=== PATIENT | female | born 1955 | race Caucasian/White ===

== ENCOUNTER → 2018-01-25 10:34 | Outpatient (CLI) | payer BC, MEDICARE, SELFPAY ==
[2018-01-25 11:23] LABS: Microscopic, Urine URINE MICROSCOPIC (MICROSCOPIC)
--- NOTE | 2018-01-25 11:36 | XR_ITS ---
XR chest 2V HISTORY: ITS.REASON: COUGH ORDERING PHYSICIAN: Shay Guerrero PATIENT AGE: 62 years COMPARISON: [id number] FINDINGS: The cardiomediastinal silhouette and pulmonary vascularity are within normal limits. The lungs are clear without infiltrates, suspicious nodules, or pleural effusions. No acute bony abnormalities. There is a medium-sized hiatal hernia IMPRESSION: Hiatal hernia otherwise negative chest
[2018-01-25 11:54] LABS: Activated Partial Thrombo Time 29.4 seconds (23.6-34.0); INR 1.02 (0.9-1.1); Prothrombin Time 10.5 seconds (9.4-11.8)
[2018-01-25 12:05] LABS: Basophils % 0.9 % (0.1-2.0); Eosinophils # 0.4 K/mm3 (0.0-0.4); Eosinophils % 7.6 % (0.1-12.0); Hemoglobin 11.7 g/dL (12.2-16.2); Lymphocytes # 1.6 K/mm3 (0.7-4.5); Mean Corpuscular HGB Conc 31.7 g/dL (31.8-35.4); Mean Corpuscular Hemoglobin 29.6 pg (27.0-31.2); Mean Corpuscular Volume 93.3 fl (81-99); Mean Platelet Volume 8.2 fl (7.4-10.4); Monocytes # 0.4 K/mm3 (0.1-1.0); Monocytes % 7.3 % (1.7-9.3); Neutrophils # 2.8 K/mm3 (1.8-7.8); Neutrophils % 53.2 % (37.0-80.0); Platelet Count 182 K/mm3 (142-424); Red Blood Count 3.97 M/mm3 (4.20-5.40); Red Cell Distribution Width 13.2 % (11.5-17.5); White Blood Count 5.2 K/mm3 (4.8-10.8)
[2018-01-25 12:57] LABS: Alanine Aminotransferase 16 U/L (12-78); Alkaline Phosphatase 111 U/L (46-116); Anion Gap 12.3 mEq/L (5-15); Aspartate Amino Transferase 20 U/L (15-37); Bilirubin,Total 0.6 mg/dL (0.2-1.0); Blood Urea Nitrogen 12 mg/dL (7-18); Calcium 8.7 mg/dL (8.5-10.1); Carbon Dioxide 28 mmol/L (21.0-32.0); Chloride 109 mmol/L (98-107); Estimated Glomerular Filt Rate 63 ml/min (>60); GFR (African American) 77 ML/MIN (>60); Glucose 91 mg/dL (74-106); Potassium 4.3 mmoL/L (3.5-5.1); Sodium 145 mmol/L (136-145)
[2018-01-25 13:11] LABS: Appearance,Urine SL CLOUDY (Clear); Bilirubin,Urine Negative (Negative); Blood, Urine Negative (Negative); Color,Urine YELLOW (Yellow); Glucose,Urine (UA) Negative (Negative); Ketones,Urine Negative (Negative); Leukocyte Esterase,Urine 1+ (Negative); Nitrate,Urine Negative (Negative); Protein,Urine Negative (Negative); Specific Gravity, Urine 1.015 (1.005-1.030); Urobilinogen,Urine 0.2 EU/dl (0.2)
[2018-01-25 13:47] LABS: Bacteria,Urine 4+ /lpf; Squamous Epithelial Cell,Urine Occasional #/hpf (0-5)
== END ==
PROVIDERS: PCP Family Medicine; Visit Provider Orthopaedic Surgery
DX: Z01.818 Encounter for other preprocedural examination (principal)
CPT/HCPCS: 36415; 71046; 80053; 81001; 85025; 85610; 85730; 87086; 87088; 87186; 93005

== ENCOUNTER 2018-08-10 11:44 | Inpatient (IN) | payer BC, MEDICARE, SELFPAY ==
[2018-08-10 11:51] VITALS: BMI 43.6
[2018-08-10 12:29] VITALS: BP 105/63; PULSE 78; RESP 22; TEMP 36.2; O2SAT 96
--- NOTE | 2018-08-10 12:59 | HMH.HP ---
*Admission Date: 08/10/18 *Chief complaint: wound infection *History of present illness: Ms. Blair is a 62-year-old female with a history of hypertension, migraine headaches, seasonal allergies, GERD, arthritis, cervical cancer, chronic back pain with degenerative disc disease who had a knee replacement in February 2018, with a patella repair in March 2018 and a reconstructed patella 6 weeks ago. She developed a wound infection and is been seeing her orthopedic surgeon weekly with home health doing daily packing of the wound. Her surgeon started her on Augmentin for the infection after which she developed a rash. She stopped taking the medication and started on Benadryl. The rash actually got worse and she developed blisters and sores as well as the redness. She denies having any fever. She did see her surgeon yesterday on 08/09/2018 and she was to follow-up with a spot welder line for this. noticed a change in mental status yesterday and due to the worsening rash he brought her to the office of [facility] today for evaluation. She has not been eating or drinking well for 2 days. She has been nauseated and had the dry heaves. Her bowels have not moved in a couple of days. With evaluation in the office of [facility] she was noted to be a little lethargic with a loss of memory. Petechiae and confluent rash was noted throughout her body. Dr. Alas also saw the patient while in the office. White blood cell count was 13,000. Thus she was admitted to [facility] for further evaluation and treatment with IV fluids, and will be started on clindamycin and Levaquin. Wound culture will be completed as well and she will have daily wound care. Please see orders [facility] History Medical History: Reports:: Cancer (CERVICAL), Hypertension Denies:: Diabetes Mellitus Type 1, Diabetes Mellitus Type 2, MRSA *Have you ever received a pneumonia vaccine?: No *Have you received a flu vaccine this season?: Yes Other Medical History: Reports: Arthritis Laterality Cases: Bilateral: Total Knee Replacement, Other Other Surgeries: Yes: Hysterectomy-Total, Other (Total L Knee February 2018, L knee tendon repair March 2018,) Amputation: No Fractures: No Comment: Bilateral foot surgery for plantar fasciitis 1998 and 1999; bilateral laminectomies of L3/07/08/2008; patella tendon repair right knee after a fall by Dr. Burgos 08/13/2016 ;patella tendon repair of the left knee March 2018; reconstruction on the left patella tendon June 2018 - *Social History Educational Level: Attended College Alcohol Intake: never *Occupational Status:: retired Household Members: spouse *Travel in the last 8 weeks: None - Psychiatric History Expresses thoughts of harming self/others: None Suicide Plan Description: No Plan Family Hx:: Cancer, Diabetes, Heart Attack Comment: Father had heart disease and an IN at the age of 50 ;mother had breast cancer; paternal grandmother was a diabetic. Review of Systems - Constitutional Reports lack of energy, Reports weakness, Denies fever(s) - ENT Denies ear pain, Denies headache(s), Denies sore throat - *Cardiovascular Reports shortness of breath, Reports leg swelling, Denies chest pain - *Respiratory Reports shortness of breath, Denies chest congestion, Denies cough - *Gastrointestinal Reports nausea, Reports vomiting, Denies abdominal pain, Denies change in bowel habits - *Genitourinary Denies painful urination Comments: Was treated for urinary tract infection last week with Bactrim x2 days per Dr. Guerrero - *Musculoskeletal Comments: She has been nonweightbearing. She has a partial leg cast on the left lower extremity. She is not to bend the left knee. - *Neurologic Reports confusion, Reports tremor(s), Denies abnormal speech, Denies frequent falls, Denies headache(s) Comments: Lethargic - Psychiatric Reports confusion Meds Home Medications Medication Instruc
--- NOTE | 2018-08-10 13:03 | P.HP_ITS ---
*Admission Date: 08/10/18 *Chief complaint: wound infection *History of present illness: Ms. Blair is a 62-year-old female with a history of hypertension, migraine headaches, seasonal allergies, GERD, arthritis, cervical cancer, chronic back pain with degenerative disc disease who had a knee replacement in February 2018, with a patella repair in March 2018 and a reconstructed patella 6 weeks ago. She developed a wound infection and is been seeing her orthopedic surgeon weekly with home health doing daily packing of the wound. Her surgeon started her on Augmentin for the infection after which she developed a rash. She stopped taking the medication and started on Benadryl. The rash actually got worse and she developed blisters and sores as well as the redness. She denies having any fever. She did see her surgeon yesterday on 08/09/2018 and she was to follow-up with a dye range operator cloth for this. noticed a change in mental status yesterday and due to the worsening rash he brought her to the office of [facility] today for evaluation. She has not been eating or drinking well for 2 days. She has been nauseated and had the dry heaves. Her bowels have not moved in a couple of days. With evaluation in the office of [facility] she was noted to be a little lethargic with a loss of memory. Petechiae and confluent rash was noted throughout her body. Dr. Alas also saw the patient while in the office. White blood cell count was 13,000. Thus she was admitted to [facility] for further evaluation and treatment with IV fluids, and will be started on clindamycin and Levaquin. Wound culture will be completed as well and she will have daily wound care. Please see orders [facility] History Medical History: Reports:: Cancer (CERVICAL), Hypertension Denies:: Diabetes Mellitus Type 1, Diabetes Mellitus Type 2, MRSA *Have you ever received a pneumonia vaccine?: No *Have you received a flu vaccine this season?: Yes Other Medical History: Reports: Arthritis Laterality Cases: Bilateral: Total Knee Replacement, Other Other Surgeries: Yes: Hysterectomy-Total, Other (Total L Knee February 2018, L knee tendon repair March 2018,) Amputation: No Fractures: No Comment: Bilateral foot surgery for plantar fasciitis 1998 and 1999; bilateral laminectomies of L3/07/08/2008; patella tendon repair right knee after a fall by Dr. Burgos 08/13/2016 ;patella tendon repair of the left knee March 2018; reconstruction on the left patella tendon June 2018 - *Social History Educational Level: Attended College Alcohol Intake: never *Occupational Status:: retired Household Members: spouse *Travel in the last 8 weeks: None - Psychiatric History Expresses thoughts of harming self/others: None Suicide Plan Description: No Plan Family Hx:: Cancer, Diabetes, Heart Attack Comment: Father had heart disease and an CT at the age of 50 ;mother had breast cancer; paternal grandmother was a diabetic. Review of Systems - Constitutional Reports lack of energy, Reports weakness, Denies fever(s) - ENT Denies ear pain, Denies headache(s), Denies sore throat - *Cardiovascular Reports shortness of breath, Reports leg swelling, Denies chest pain - *Respiratory Reports shortness of breath, Denies chest congestion, Denies cough - *Gastrointestinal Reports nausea, Reports vomiting, Denies abdominal pain, Denies change in bowel habits - *Genitourinary Denies painful urination Comments: Was treated for urinary tract infection last week with Bactrim x2 days per Dr. Guerrero - *Musculoskeletal Comments: She has been nonweightb
[2018-08-10 13:11] LABS: Basophils % 0.2 % (0.1-2.0); Eosinophils # 0.1 K/mm3 (0.0-0.4); Hematocrit 33.9 % (37.0-47.0); Hemoglobin 10.6 g/dL (12.2-16.2); Lymphocytes # 1.4 K/mm3 (0.7-4.5); Lymphocytes % 13.3 % (10-50); Mean Corpuscular HGB Conc 31.3 g/dL (31.8-35.4); Mean Corpuscular Hemoglobin 27.6 pg (27.0-31.2); Mean Corpuscular Volume 88.3 fl (81-99); Monocytes # 0.4 K/mm3 (0.1-1.0); Monocytes % 3.4 % (1.7-9.3); Neutrophils # 8.7 K/mm3 (1.8-7.8); Platelet Count 541 K/mm3 (142-424); Red Blood Count 3.84 M/mm3 (4.20-5.40); Red Cell Distribution Width 14.2 % (11.5-17.5); White Blood Count 10.6 K/mm3 (4.8-10.8)
[2018-08-10 13:20] LABS: Alanine Aminotransferase 23 U/L (12-78); Albumin Level 1.8 gm/dL (3.4-5.0); Albumin/Globulin Ratio 0.3 (1.1-1.8); Alkaline Phosphatase 113 U/L (46-116); Anion Gap 15.1 mEq/L (5-15); Aspartate Amino Transferase 38 U/L (15-37); Bilirubin,Total 0.5 mg/dL (0.2-1.0); Blood Urea Nitrogen 45 mg/dL (7-18); Calcium 8.5 mg/dL (8.5-10.1); Carbon Dioxide 21 mmol/L (21.0-32.0); Chloride 99 mmol/L (98-107); Creatinine Clearance Estimated 21 mL/min (50-200); Creatinine,Serum 2.51 mg/dL (0.55-1.02); Estimated Glomerular Filt Rate 19 ml/min (>60); GFR (African American) 23 ML/MIN (>60); Globulin 5.3 gm/dl (1.3-3.2); Glucose 115 mg/dL (74-106); Sodium 129 mmol/L (136-145); Total Protein,Serum 7.1 gm/dL (6.4-8.2)
[2018-08-10 13:25] LABS: Potassium 6.1 mmoL/L (3.5-5.1)
[2018-08-10 13:26] LABS: Lactic Acid 1.8 mmol/L (0.4-2.0)
--- NOTE | 2018-08-10 15:01 | HMH.PHAVTE ---
[facility] Pharmacy VTE Monitoring - Patient Demographics Admission date: 08/10/18 Report Date: 08/10/18 Time: 15:01 Allergies/Adverse Reactions: Patient Allergies clarithromycin [From BIAXIN] Allergy (Unknown, Verified 03/06/18 22:23) Height: 1.68 m Weight: 122.697 kg - VTE Risk Labs: VTE Related Lab Results Hgb 10.6 g/dL (12.2-16.2) L 08/10/18 12:47 Hct 33.9 % (37.0-47.0) L 08/10/18 12:47 Plt Count 541 K/mm3 (142-424) H 08/10/18 12:47 BUN 45 mg/dL (7-18) H 08/10/18 12:47 Creatinine 2.51 mg/dL (0.55-1.02) H 08/10/18 12:47 Estimated Creat Clear 21 mL/min (50-200) 08/10/18 12:47 VTE Score: 5 VTE Risk Level: Low Risk - Prophylaxis Types of VTE Prophylaxis: TEDS Knee High (ALICIA HOSE ORDER PLACED)
--- NOTE | 2018-08-10 18:23 | PC.NURSE ---
patient has had an episode of nausea, medication per mar tolerated well. patient noted to have a wound infection that has been packed per home health nurse(total knee surgery in February) RN changed dressing to left leg per v/o from [place], rn inserted 1 inch idoform into the wound and then covered with 4x4s. noted yellow bloody drainage. RN also wrapped leg in kerlix and replaced her leg in the cast that she was in on admission. patient at bedside. IV place in the 22 LAC ns going at 100ml/hr, will continue to monitor.
[2018-08-10 19:50] VITALS: O2SAT 99
[2018-08-10 20:00] VITALS: BP 121/69; PULSE 78; RESP 18; TEMP 36.3; O2SAT 99
[2018-08-11] VITALS: BP 117/65; PULSE 72; RESP 20; TEMP 36.4; O2SAT 97
[2018-08-11 04:00] VITALS: BP 116/65; PULSE 73; RESP 20; TEMP 36.4; O2SAT 97
--- NOTE | 2018-08-11 05:18 | PC.NURSE ---
Pt A&O x3. Has been awake most of shift. She has c/o soa at times. VS have remained stable. O2 sats have remained between 97-99%. Lungs CTA. states that she has been c/o of soa at home also and that she has sleep apnea but refuses to wear Cpap. BS hyperactive. Pt c/o abdomen churning. She complains she has had this problem for some time. It was also noted that pt was administered kayexalate on prior shift. Pt has not had a BM at this time. F/C draining to bedside with clear bright yellow urine. DSG to LLE intact. Yellow drainage was noted. Reddish to purple rash with blisters noted on all extremities,chest, back, stomach and buttox. Medications administered per jun. Call light within reach. Will continue to monitor.
[2018-08-11 06:55] VITALS: BMI 42.9
[2018-08-11 07:17] LABS: Hematocrit 27.5 % (37.0-47.0); Lymphocytes # 0.6 K/mm3 (0.7-4.5); Mean Corpuscular HGB Conc 31.2 g/dL (31.8-35.4); Mean Corpuscular Hemoglobin 27.3 pg (27.0-31.2); Mean Corpuscular Volume 87.4 fl (81-99); Mean Platelet Volume 7.1 fl (7.4-10.4); Monocytes # 0.2 K/mm3 (0.1-1.0); Monocytes % 2.5 % (1.7-9.3); Neutrophils # 7.9 K/mm3 (1.8-7.8); Neutrophils % 90.4 % (37.0-80.0); Platelet Count 441 K/mm3 (142-424); Red Blood Count 3.15 M/mm3 (4.20-5.40); Red Cell Distribution Width 14.5 % (11.5-17.5); White Blood Count 8.8 K/mm3 (4.8-10.8)
[2018-08-11 07:23] LABS: MANUAL DIFFERENTIAL MANUAL DIFFERENTIAL (MANUAL DIFF)
[2018-08-11 07:29] LABS: Anion Gap 14.8 mEq/L (5-15); Blood Urea Nitrogen 46 mg/dL (7-18); Carbon Dioxide 20 mmol/L (21.0-32.0); Chloride 101 mmol/L (98-107); Creatinine Clearance Estimated 24 mL/min (50-200); Creatinine,Serum 2.22 mg/dL (0.55-1.02); Estimated Glomerular Filt Rate 22 ml/min (>60); GFR (African American) 27 ML/MIN (>60); Glucose 113 mg/dL (74-106); Sodium 129 mmol/L (136-145)
[2018-08-11 07:37] LABS: Potassium 6.8 mmoL/L (3.5-5.1)
[2018-08-11 07:38] LABS: Calcium 7.5 mg/dL (8.5-10.1)
[2018-08-11 07:42] LABS: Hemoglobin 8.7 g/dL (12.2-16.2)
--- NOTE | 2018-08-11 07:53 | PC.NURSE ---
RN notified MD regarding patients critical result of potassium of 6.8. no new orders at this time. will continue to monitor.
[2018-08-11 08:00] VITALS: BP 108/60; PULSE 80; RESP 18; TEMP 36.4; O2SAT 96
--- NOTE | 2018-08-11 08:27 | HMH.ACPN2 ---
<Carol Timmons - Last Filed: 08/11/18 08:27> Internal Medicine - PN: Subj *Date: 08/11/18 *Time: 08:27 Interval history: Patient states she is feeling about the same today. She is very fatigued and still nauseated. She just rested off and on throughout the night. Her rash is getting worse. She was able to eat yesterday. Exam Vital signs and Labs for Last 24 Hours: Temp Pulse Resp BP Pulse Ox 97.5 F L 73 20 116/65 97 08/11/18 04:00 08/11/18 04:00 08/11/18 04:00 08/11/18 04:00 08/11/18 04:00 Laboratory Results - last 24 hr 08/10/18 12:47: WBC 10.6, RBC 3.84 L, Hgb 10.6 L, Hct 33.9 L, MCV 88.3, MCH 27.6, MCHC 31.3 L, RDW 14.2, Plt Count 541 H, MPV 7.0 L, Neut % (Auto) 82.0 H, Lymph % (Auto) 13.3, [place] % (Auto) 3.4, Eos % (Auto) 1.0, Baso % (Auto) 0.2, Neut # (Auto) 8.7 H, Lymph # (Auto) 1.4, [place] # (Auto) 0.4, Eos # (Auto) 0.1, Baso # (Auto) 0.0 08/10/18 12:47: Sodium 129 L, Potassium 6.1 H*, Chloride 99, Carbon Dioxide 21, Anion Gap 15.1 H, BUN 45 H, Creatinine 2.51 H, Estimated Creat Clear 21, Estimated GFR 19 L*, Est GFR ( Amer) 23 L, Glucose 115 H, Calcium 8.5, Total Bilirubin 0.5, AST 38 H, ALT 23, Alkaline Phosphatase 113, Total Protein 7.1, Albumin 1.8 L, Globulin 5.3 H, Albumin/Globulin Ratio 0.3 L 08/10/18 12:47: Lactate 1.8 08/11/18 06:47: WBC 8.8, RBC 3.15 L, Hgb 8.7 L D, Hct 27.5 L, MCV 87.4, MCH 27.3, MCHC 31.2 L, RDW 14.5, Plt Count 441 H, MPV 7.1 L, Neut % (Auto) 90.4 H, Lymph % (Auto) 7.0 L, [place] % (Auto) 2.5, Eos % (Auto) 0.0 L, Baso % (Auto) 0.0 L, Neut # (Auto) 7.9 H, Lymph # (Auto) 0.6 L, [place] # (Auto) 0.2, Eos # (Auto) 0.0, Baso # (Auto) 0.0 08/11/18 06:47: Sodium 129 L, Potassium 6.8 H*, Chloride 101, Carbon Dioxide 20 L, Anion Gap 14.8, BUN 46 H, Creatinine 2.22 H, Estimated Creat Clear 24, Estimated GFR 22 L, Est GFR ( Amer) 27 L, Glucose 113 H, Calcium 7.5 L D I & O for Last 24 hours: Intake & Output 08/08/18 08/09/18 08/10/18 08/11/18 11:59 11:59 11:59 11:59 Intake Total 340 / 340 Output Total 350 / 350 Balance - / Weight 270 lb 8 oz 266 lb Microbiology Reports for the Last 24 Hours: Microbiology 08/10/18 14:45 Leg,Left Gram Stain - Final 08/10/18 14:45 Leg,Left Wound Culture - Preliminary - Constitutional no acute distress - *Routine Respiratory Exam Present: CTA bilaterally - *Routine Cardiovascular Exam Present: RRR - *Routine Abdominal Exam Present: soft, normoactive bowel sounds. Absent: tenderness - *Routine Extremities Exam Present: edema (bilateral LE's). Absent: cyanosis, clubbing - *Routine Skin Exam Present: rash (getting worse, still present on the legs, abdomen and chest, worsening on the arms, starting to blister) Assessment and Plan (1) Sepsis Current visit: Yes Status: Acute Category: Medical Code(s): A41.9 - Sepsis, unspecified organism (2) Postoperative wound infection Current visit: Yes Status: Acute Category: Medical Code(s): T81.49XA - Infection following a procedure, other surgical site, initial encounter (3) Hyperkalemia Current visit: Yes Status: Acute Category: Medical Code(s): E87.5 - Hyperkalemia (4) Renal insufficiency Current visit: Yes Status: Acute Category: Medical Code(s): N28.9 - Disorder of kidney and ureter, unspecified (5) Hypertension Current visit: Yes Status: Chronic Category: Medical Code(s): I10 - Essential (primary) hypertension (6) Arthritis Current visit: Yes Status: Chronic Category: Medical Code(s): M19.90 - Unspecified osteoarthritis, unspecified site (7) Degenerative disc disease Current visit: Yes Status: Chronic Category: Medical (8) GERD (gastroesophageal reflux disease) Current visit: Yes Status: Chronic Category: Medical Code(s): K21.9 - Gastro-esophageal reflux disease without esophagitis (9) Status post knee replacement Current visit: Yes Status: Acute Category: Surgical Code(s
--- NOTE | 2018-08-11 08:30 | P.PN_ITS ---
<Carol Timmons - Last Filed: 08/11/18 08:27> Internal Medicine - PN: Subj *Date: 08/11/18 *Time: 08:27 Interval history: Patient states she is feeling about the same today. She is very fatigued and still nauseated. She just rested off and on throughout the night. Her rash is getting worse. She was able to eat yesterday. Exam Vital signs and Labs for Last 24 Hours: Temp Pulse Resp BP Pulse Ox 97.5 F L 73 20 116/65 97 08/11/18 04:00 08/11/18 04:00 08/11/18 04:00 08/11/18 04:00 08/11/18 04:00 Laboratory Results - last 24 hr 08/10/18 12:47: WBC 10.6, RBC 3.84 L, Hgb 10.6 L, Hct 33.9 L, MCV 88.3, MCH 27.6, MCHC 31.3 L, RDW 14.2, Plt Count 541 H, MPV 7.0 L, Neut % (Auto) 82.0 H, Lymph % (Auto) 13.3, [place] % (Auto) 3.4, Eos % (Auto) 1.0, Baso % (Auto) 0.2, Neut # (Auto) 8.7 H, Lymph # (Auto) 1.4, [place] # (Auto) 0.4, Eos # (Auto) 0.1, Baso # (Auto) 0.0 08/10/18 12:47: Sodium 129 L, Potassium 6.1 H*, Chloride 99, Carbon Dioxide 21, Anion Gap 15.1 H, BUN 45 H, Creatinine 2.51 H, Estimated Creat Clear 21, Estimated GFR 19 L*, Est GFR ( Amer) 23 L, Glucose 115 H, Calcium 8.5, Total Bilirubin 0.5, AST 38 H, ALT 23, Alkaline Phosphatase 113, Total Protein 7.1, Albumin 1.8 L, Globulin 5.3 H, Albumin/Globulin Ratio 0.3 L 08/10/18 12:47: Lactate 1.8 08/11/18 06:47: WBC 8.8, RBC 3.15 L, Hgb 8.7 L D, Hct 27.5 L, MCV 87.4, MCH 27.3, MCHC 31.2 L, RDW 14.5, Plt Count 441 H, MPV 7.1 L, Neut % (Auto) 90.4 H, Lymph % (Auto) 7.0 L, [place] % (Auto) 2.5, Eos % (Auto) 0.0 L, Baso % (Auto) 0.0 L , Neut # (Auto) 7.9 H, Lymph # (Auto) 0.6 L, [place] # (Auto) 0.2, Eos # (Auto) 0.0, Baso # (Auto) 0.0 08/11/18 06:47: Sodium 129 L, Potassium 6.8 H*, Chloride 101, Carbon Dioxide 20 L, Anion Gap 14.8, BUN 46 H, Creatinine 2.22 H, Estimated Creat Clear 24, Estimated GFR 22 L, Est GFR ( Amer) 27 L, Glucose 113 H, Calcium 7.5 L D I & O for Last 24 hours: Intake & Output 08/08/18 08/09/18 08/10/18 08/11/18 11:59 11:59 11:59 11:59 Intake Total 340 / 340 Output Total 350 / 350 Balance - / Weight 270 lb 8 oz 266 lb Microbiology Reports for the Last 24 Hours: Microbiology 08/10/18 14:45 Leg,Left Gram Stain - Final 08/10/18 14:45 Leg,Left Wound Culture - Preliminary - Constitutional no acute distress - *Routine Respiratory Exam Present: CTA bilaterally - *Routine Cardiovascular Exam Present: RRR - *Routine Abdominal Exam Present: soft, normoactive bowel sounds. Absent: tenderness - *Routine Extremities Exam Present: edema (bilateral LE's). Absent: cyanosis, clubbing - *Routine Skin Exam Present: rash (getting worse, still present on the legs, abdomen and chest, worsening on the arms, starting to blister) Assessment and Plan (1) Sepsis Current visit: Yes Status: Acute Category: Medical Code(s): A41.9 - Sepsis, unspecified organism (2) Postoperative wound infection Current visit: Yes Status: Acute Category: Medical Code(s): T81.49XA - Infection following a procedure, other surgical site, initial encounter (3) Hyperkalemia Current visit: Yes Status: Acute Category: Medical Code(s): E87.5 - Hyperkalemia (4) Renal insufficiency Current visit: Yes Status: Acute Category: Medical Code(s): N28.9 - Di sorder of kidney and ureter, unspecified (5) Hypertension Current visit: Yes Status: Chronic
--- NOTE | 2018-08-11 10:45 | PC.NURSE ---
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
--- NOTE | 2018-08-11 10:49 | HMH.PHAINT ---
MEDICATION RECONCILIATION COMPLETED ON PATIENT USING MED LIST FROM MD'S OFFICE.
[2018-08-11 10:57] LABS: Lymphocytes % 7 % (10-50); Monocytes % 2 % (2-9); Neutrophils % 90 % (42-76); Platelet Estimate Slight Increase; Total Cells Counted 100
--- NOTE | 2018-08-11 11:31 | PC.NURSE ---
RN asked patient about compression stocking for the right leg, patient stated that she has never been able to wear the compression stocking do to her leg being to large, and it causes her pain and discomfort, RN has a call out to MD office regarding this, no new orders at this time. will continue to monitor.
--- NOTE | 2018-08-11 11:54 | PC.NURSE ---
New telephone order per MD Kendall, Lovenox 40mg subq daily for VTE prophylactic, pharmacy notified, will continue to monitor.
[2018-08-11 13:13] VITALS: BP 117/65; PULSE 71; RESP 18; TEMP 36.5; O2SAT 96
--- NOTE | 2018-08-11 14:03 | PC.NURSE ---
PATIENT REPORTING SHARP CHEST PAIN OVER UPPER LEFT CHEST, ESPECIALLY WITH BREATHING, RN ORDERED A STAT EKG PER PROTOCOL, RT NOTIFIED AT THIS TIME. WILL CONTINUE TO MONITOR.
--- NOTE | 2018-08-11 14:28 | PC.NURSE ---
ekg was obtained at 1413, results were read per ER MD Santamaria at 1421; resulted normal. RN placed call to MD office and spoke to MD Kendall regarding the patient having the increased sharp chest pain, stated to order a portable chest xray, will continue to monitor.
--- NOTE | 2018-08-11 14:30 | XR_ITS ---
XR chest portable HISTORY: ITS.REASON: chest pain with inspiration ORDERING PHYSICIAN: Juan José Kendall MD PATIENT AGE: 62 years COMPARISON: None FINDINGS: The cardiomediastinal silhouette and pulmonary vascularity are within normal limits. There is a medium-sized hiatal hernia The lungs are clear without infiltrates, suspicious nodules, or pleural effusions. No acute bony abnormalities. IMPRESSION: Hiatal hernia otherwise negative
--- NOTE | 2018-08-11 14:40 | PC.NURSE ---
1300-RN changed dressing to left leg inserted/packed 1 inch idoform into the wound and then covered with 4x4s. noted yellow bloody drainage. patient at bedside. IV place in the 22 LAC ns going at 100ml/hr, will continue to monitor.
--- NOTE | 2018-08-11 14:57 | PC.NURSE ---
Radiology notified of the portable xray order, will continue to monitor.
[2018-08-11 16:00] VITALS: BP 115/65; PULSE 67; RESP 18; TEMP 36.6; O2SAT 98
[2018-08-11 20:00] VITALS: BP 97/54; PULSE 70; RESP 16; TEMP 36.4; O2SAT 95
--- NOTE | 2018-08-12 02:38 | PC.NURSE ---
Patient has been resting in bed comfortably throughout shift. Patient has IV in left arm with NS infusing at 100 mL/hr with no s/s of infiltration. Pain has been well controlled with scheduled morphine. Patient received 3/3 doses of Kayexalate; last one given at 2100 last night. Patient did have a copious amount of liquid BM at the beginning of shift; patient was incontinent and cleaned up at that time. Bazan care was completed as well. Will continue to monitor.
[2018-08-12 04:00] VITALS: BP 104/57; PULSE 60; RESP 16; TEMP 36.5; O2SAT 95
[2018-08-12 04:51] VITALS: BMI 46.0
[2018-08-12 07:48] VITALS: BP 101/55; PULSE 67; RESP 18; TEMP 36.6; O2SAT 100
[2018-08-12 07:55] VITALS: O2SAT 100
--- NOTE | 2018-08-12 08:20 | HMH.ACPN2 ---
Internal Medicine - PN: Subj *Date: 08/12/18 *Time: 08:20 Interval history: Rested better last night. Less SOA. Some pain in her leg. Had diarrhea from the Kayexalate. Exam Vital signs and Labs for Last 24 Hours: Temp Pulse Resp BP Pulse Ox 97.8 F 67 18 101/55 L 100 08/12/18 07:48 08/12/18 07:48 08/12/18 07:48 08/12/18 07:48 08/12/18 07:48 Laboratory Results - last 24 hr 08/11/18 06:47: Total Counted 100, Neutrophils % (Manual) 90 H, Band Neutrophils % 1.0, Lymphocytes % (Manual) 7 L, Monocytes % (Manual) 2, Platelet Estimate Slight increase, RBC Morphology Not Reportable I & O for Last 24 hours: Intake & Output 08/09/18 08/10/18 08/11/18 08/12/18 11:59 11:59 11:59 11:59 Intake Total 2438 / 2438 2146 / 2146 Output Total 350 / 350 600 / 600 Balance 2088 / 2088 1546 / 1546 Weight 270 lb 8 oz 266 lb 286 lb 2.56 oz Microbiology Reports for the Last 24 Hours: Microbiology 08/10/18 13:00 Urine,Catheterized Urine Culture - Preliminary 08/10/18 12:45 Blood Blood Culture - Preliminary 08/10/18 14:45 Leg,Left Gram Stain - Final 08/10/18 14:45 Leg,Left Wound Culture - Preliminary - Constitutional no acute distress - *Routine Respiratory Exam Present: CTA bilaterally - *Routine Cardiovascular Exam Present: RRR - *Routine Abdominal Exam Present: soft. Absent: tenderness, distended Assessment and Plan (1) Bacteremia Current visit: Yes Status: Acute Category: Medical Code(s): R78.81 - Bacteremia (2) Petechial rash Current visit: Yes Status: Acute Category: Medical Code(s): R23.3 - Spontaneous ecchymoses (3) Postoperative wound infection Current visit: Yes Status: Acute Category: Medical Code(s): T81.49XA - Infection following a procedure, other surgical site, initial encounter (4) Hyperkalemia Current visit: Yes Status: Acute Category: Medical Code(s): E87.5 - Hyperkalemia (5) Renal insufficiency Current visit: Yes Status: Acute Category: Medical Code(s): N28.9 - Disorder of kidney and ureter, unspecified (6) Hypertension Current visit: Yes Status: Chronic Category: Medical Code(s): I10 - Essential (primary) hypertension (7) Arthritis Current visit: Yes Status: Chronic Category: Medical Code(s): M19.90 - Unspecified osteoarthritis, unspecified site (8) Degenerative disc disease Current visit: Yes Status: Chronic Category: Medical (9) GERD (gastroesophageal reflux disease) Current visit: Yes Status: Chronic Category: Medical Code(s): K21.9 - Gastro-esophageal reflux disease without esophagitis (10) Status post knee replacement Current visit: Yes Status: Acute Category: Surgical Code(s): Z96.659 - Presence of unspecified artificial knee joint (11) Status post tendon repair Current visit: Yes Status: Acute Category: Surgical Code(s): Z98.890 - Other specified postprocedural states (12) Dyspnea Current visit: Yes Status: Acute Category: Medical Code(s): R06.00 - Dyspnea, unspecified - Assessment and plan all Dx Assessment and Plan for all problems:: Subjectively improved. Labs pending. Continue current antibiotics pending culture results.
[2018-08-12 09:05] LABS: Basophils % 0.1 % (0.1-2.0); Eosinophils # 0.1 K/mm3 (0.0-0.4); Hematocrit 30.4 % (37.0-47.0); Hemoglobin 9.4 g/dL (12.2-16.2); Lymphocytes # 0.8 K/mm3 (0.7-4.5); Lymphocytes % 6.5 % (10-50); Mean Corpuscular HGB Conc 30.9 g/dL (31.8-35.4); Mean Corpuscular Hemoglobin 27.6 pg (27.0-31.2); Mean Corpuscular Volume 89.5 fl (81-99); Mean Platelet Volume 8.4 fl (7.4-10.4); Monocytes # 0.4 K/mm3 (0.1-1.0); Monocytes % 3.4 % (1.7-9.3); Neutrophils # 10.2 K/mm3 (1.8-7.8); Platelet Count 468 K/mm3 (142-424); Red Cell Distribution Width 15.1 % (11.5-17.5); White Blood Count 11.4 K/mm3 (4.8-10.8)
[2018-08-12 09:12] LABS: Anion Gap 16.7 mEq/L (5-15); Blood Urea Nitrogen 49 mg/dL (7-18); Calcium 7.5 mg/dL (8.5-10.1); Carbon Dioxide 21 mmol/L (21.0-32.0); Chloride 102 mmol/L (98-107); Creatinine Clearance Estimated 24 mL/min (50-200); Creatinine,Serum 2.24 mg/dL (0.55-1.02); Estimated Glomerular Filt Rate 22 ml/min (>60); GFR (African American) 27 ML/MIN (>60); Glucose 144 mg/dL (74-106); Potassium 4.7 mmoL/L (3.5-5.1); Sodium 135 mmol/L (136-145)
[2018-08-12 09:15] LABS: MANUAL DIFFERENTIAL MANUAL DIFFERENTIAL (MANUAL DIFF)
[2018-08-12 09:54] LABS: Hypochromasia 1+; Lymphocytes % 7 % (10-50); Monocytes % 2 % (2-9); Neutrophils % 88 % (42-76); Platelet Estimate Slight Increase; Total Cells Counted 100
[2018-08-12 16:00] VITALS: BP 113/61; PULSE 56; RESP 20; TEMP 36.7; O2SAT 100; O2SAT 99
[2018-08-12 16:08] VITALS: BMI 46.0
--- NOTE | 2018-08-12 19:14 | PC.NURSE ---
report given to bettye
[2018-08-12 19:26] VITALS: BP 109/63; PULSE 70; RESP 18; TEMP 36.3; O2SAT 99
--- NOTE | 2018-08-12 19:58 | PC.NURSE ---
1500 PATIENT ARRIVED ON FLOOR, A&O X4, LUNGS CLEAR, PULSES EQUAL, SHUTTLE FINAL INSPECTOR EQUAL, RASH NOTED ALL OVER BODY. PATIENT PLACED ON CONTACT PRECAUTIONS DUE TO STAPH IN BLOOD. 1530 DRESSING IN LEFT THIGH CHANGED, BLOODY DRAINAGE NOTED, GAUZE STRIP APPLIED INTO WOUND, COVER WITH 4X4, KERFLEX AND SONY BANDAGE, PATIENT TOLERATED DRESSING CHANGE WELL. NO NEW NEEDS OR CONCERNS AT THIS TIME.
--- NOTE | 2018-08-13 03:07 | PC.NURSE ---
A&OX4. L THIGH WOUND NOTED PER REPORT; DSG INTACT; REINFORCED DSG D/T SOME SEROUS DRAINAGE NOTED. SCATTERED RASH NOTED TO BUE, ABD, AND BILAT. THIGHS. PT. C/O ACHING IN LEGS RATING 5/10; RELIEVED WITH MORPHINE PER MAR. PT. HAS NOT C/O N/V, SOB OR DIZZINESS. FC SITE C/D/I SHOWING NO S/S OF INFECTION; URINE BRIGHT YELLOW IN COLOR. SMALL SOFT STOOL NOTED AT BEGINNING OF SHIFT. PT. C/O BARIATRIC BED BEING NOISY AND UNCOMFORTABLE ; TRANSFERRED PT. TO REGULAR M/S BED; PT. REPORTED IMPROVEMENT. IV PATENT AND INFUSING SHOWING NO S/S OF INFILTRATION. VSS. WILL CONTINUE TO MONITOR.
[2018-08-13 03:31] VITALS: BP 94/53; PULSE 67; RESP 18; TEMP 36.6; O2SAT 93
[2018-08-13 05:26] VITALS: BMI 46.2
[2018-08-13 08:00] VITALS: BP 101/50; PULSE 68; RESP 17; TEMP 36.6; O2SAT 96
--- NOTE | 2018-08-13 08:26 | HMH.ACPN2 ---
Internal Medicine - PN: Subj *Date: 08/13/18 *Time: 08:49 Interval history: Did not rest well o/w no unusual complaints. Bed is not comfortable. Eating OK. No SOA. Exam Vital signs and Labs for Last 24 Hours: Temp Pulse Resp BP Pulse Ox 97.8 F 68 17 101/50 L 96 08/13/18 08:00 08/13/18 08:00 08/13/18 08:00 08/13/18 08:00 08/13/18 08:00 Laboratory Results - last 24 hr 08/12/18 08:57: WBC 11.4 H D, RBC 3.40 L, Hgb 9.4 L, Hct 30.4 L, MCV 89.5, MCH 27.6, MCHC 30.9 L, RDW 15.1, Plt Count 468 H, MPV 8.4, Neut % (Auto) 89.0 H, Lymph % (Auto) 6.5 L, [place] % (Auto) 3.4, Eos % (Auto) 1.0, Baso % (Auto) 0.1, Neut # (Auto) 10.2 H, Lymph # (Auto) 0.8, [place] # (Auto) 0.4, Eos # (Auto) 0.1, Baso # (Auto) 0.0, Total Counted 100, Neutrophils % (Manual) 88 H, Band Neutrophils % 3.0, Lymphocytes % (Manual) 7 L, Monocytes % (Manual) 2, Platelet Estimate Slight increase, Hypochromasia 1+ 08/12/18 08:57: Sodium 135 L, Potassium 4.7 D, Chloride 102, Carbon Dioxide 21, Anion Gap 16.7 H, BUN 49 H, Creatinine 2.24 H, Estimated Creat Clear 24, Estimated GFR 22 L, Est GFR ( Amer) 27 L, Glucose 144 H, Calcium 7.5 L I & O for Last 24 hours: Intake & Output 08/10/18 08/11/18 08/12/18 08/13/18 11:59 11:59 11:59 11:59 Intake Total 2438 / 2438 2246 / 2246 2038 Output Total 350 / 350 600 / 600 650 / 650 Balance 2087 / 2087 1646 / 1646 1389 / 1389 Weight 270 lb 8 oz 266 lb 286 lb 2.56 oz 287 lb 7 oz Microbiology Reports for the Last 24 Hours: Microbiology 08/10/18 13:00 Urine,Catheterized Urine Culture - Preliminary 08/10/18 14:45 Leg,Left Gram Stain - Final 08/10/18 14:45 Leg,Left Wound Culture - Final Staphylococcus aureus Staphylococcus epidermidis 08/10/18 12:45 Blood Blood Culture - Preliminary Staphylococcus aureus 08/10/18 12:45 Blood Blood Culture - Preliminary NO GROWTH AFTER 48 HOURS - Constitutional no acute distress - *Routine Respiratory Exam Present: CTA bilaterally (anteriorly) - *Routine Cardiovascular Exam Present: RRR - *Routine Abdominal Exam Present: soft, normoactive bowel sounds. Absent: tenderness - *Routine Skin Exam Present: rash (seems to be slowly fading. Not as bright. ) Assessment and Plan (1) MRSA bacteremia Current visit: Yes Status: Acute Category: Medical Code(s): R78.81 - Bacteremia (2) Petechial rash Current visit: Yes Status: Acute Category: Medical Code(s): R23.3 - Spontaneous ecchymoses (3) Postoperative wound infection Current visit: Yes Status: Acute Category: Medical Code(s): T81.49XA - Infection following a procedure, other surgical site, initial encounter (4) Hyperkalemia Current visit: Yes Status: Acute Category: Medical Code(s): E87.5 - Hyperkalemia (5) Renal insufficiency Current visit: Yes Status: Acute Category: Medical Code(s): N28.9 - Disorder of kidney and ureter, unspecified (6) Hypertension Current visit: Yes Status: Chronic Category: Medical Code(s): I10 - Essential (primary) hypertension (7) Arthritis Current visit: Yes Status: Chronic Category: Medical Code(s): M19.90 - Unspecified osteoarthritis, unspecified site (8) Degenerative disc disease Current visit: Yes Status: Chronic Category: Medical (9) GERD (gastroesophageal reflux disease) Current visit: Yes Status: Chronic Category: Medical Code(s): K21.9 - Gastro-esophageal reflux disease without esophagitis (10) Status post knee replacement Current visit: Yes Status: Acute Category: Surgical Code(s): Z96.659 - Presence of unspecified artificial knee joint (11) Status post tendon repair Current visit: Yes Status: Acute Category: Surgical Code(s): Z98.890 - Other specified postprocedural states (12) Dyspnea Current visit: Yes Status: Acute Category:
--- NOTE | 2018-08-13 09:12 | HMH.PHACONS ---
- Pharmacy Consult Date: 08/13/18 Time: 09:13 Referring provider: DR. SHEPARD Reason for Consult:: VANCOMYCIN DOSING Allergies and ADEs:: Allergies Allergy/AdvReac Type Severity Reaction Status Date / Time amoxicillin [From Augmentin] Allergy Severe Rash Verified 08/10/18 18:40 clavulanic acid Allergy Severe Rash Verified 08/10/18 18:40 [From Augmentin] clarithromycin [From BIAXIN] Allergy Unknown Verified 03/06/18 22:23 Home Medications:: Home Medications Medication Instructions Recorded Confirmed Type Aspirin [Aspirin 325mg Tab] 325 mg PO BID 03/06/18 08/10/18 History Baclofen [Lioresal 10mg tablet] 10 mg PO BIDP PRN 03/06/18 08/11/18 History Celecoxib 200 mg PO DAILY 03/06/18 08/10/18 History Gabapentin [Gabapentin 300mg Cap] 300 mg PO BID 03/06/18 08/11/18 History Metoclopramide HCl [Metoclopramide 10 mg PO BID 03/06/18 08/11/18 History 10mg Tablet] Metoprolol Tartrate [Lopressor 50 mg PO DAILY 03/06/18 08/11/18 History 50mg tablet] Morphine Sulfate [Morphine Sulfate 30 mg PO DIRECTED 03/06/18 08/11/18 History ER 30mg Cap] Omeprazole [Omeprazole 20mg 20 mg PO DAILY 03/06/18 08/10/18 History Capsule] Simvastatin 40 mg PO HS 03/06/18 08/11/18 History Topiramate 25 mg PO BID 03/06/18 08/11/18 History Oxybutynin Chloride [Ditropan 5mg 5 mg PO BID 08/11/18 08/11/18 History tablet] Potassium Chloride [Klor-con 20 20 meq PO BID 08/11/18 08/11/18 History mEq tablet] Height: 1.68 m Weight: 130.379 kg Laboratory Results:: Laboratory Results - last 24 hr 08/12/18 08:57: WBC 11.4 H D, RBC 3.40 L, Hgb 9.4 L, Hct 30.4 L, MCV 89.5, MCH 27.6, MCHC 30.9 L, RDW 15.1, Plt Count 468 H, MPV 8.4, Neut % (Auto) 89.0 H, Lymph % (Auto) 6.5 L, [place] % (Auto) 3.4, Eos % (Auto) 1.0, Baso % (Auto) 0.1, Neut # (Auto) 10.2 H, Lymph # (Auto) 0.8, [place] # (Auto) 0.4, Eos # (Auto) 0.1, Baso # (Auto) 0.0, Total Counted 100, Neutrophils % (Manual) 88 H, Band Neutrophils % 3.0, Lymphocytes % (Manual) 7 L, Monocytes % (Manual) 2, Platelet Estimate Slight increase, Hypochromasia 1+ 08/12/18 08:57: Sodium 135 L, Potassium 4.7 D, Chloride 102, Carbon Dioxide 21, Anion Gap 16.7 H, BUN 49 H, Creatinine 2.24 H, Estimated Creat Clear 24, Estimated GFR 22 L, Est GFR ( Amer) 27 L, Glucose 144 H, Calcium 7.5 L Medical History: Reports:: Cancer (CERVICAL), Hypertension Denies:: Diabetes Mellitus Type 1, Diabetes Mellitus Type 2, MRSA Assessment and Plan (1) MRSA bacteremia Current visit: Yes Status: Acute Category: Medical Code(s): R78.81 - Bacteremia (2) Petechial rash Current visit: Yes Status: Acute Category: Medical Code(s): R23.3 - Spontaneous ecchymoses (3) Postoperative wound infection Current visit: Yes Status: Acute Category: Medical Code(s): T81.49XA - Infection following a procedure, other surgical site, initial encounter (4) Hyperkalemia Current visit: Yes Status: Acute Category: Medical Code(s): E87.5 - Hyperkalemia (5) Renal insufficiency Current visit: Yes Status: Acute Category: Medical Code(s): N28.9 - Disorder of kidney and ureter, unspecified (6) Hypertension Current visit: Yes Status: Chronic Category: Medical Code(s): I10 - Essential (primary) hypertension (7) Arthritis Current visit: Yes Status: Chronic Category: Medical Code(s): M19.90 - Unspecified osteoarthritis, unspecified site (8) Degenerative disc disease Current visit: Yes Status: Chronic Category: Medical (9) GERD (gastroesophageal reflux disease) Current visit: Yes Status: Chronic Category: Medical Code(s): K21.9 - Gastro-esophageal reflux disease without esophagitis (10) Status post knee replacement Current visit: Yes Status: Acute Category: Surgical Code(s): Z96.659 - Presence of unspecified artificial knee joint (11) Status post tendon repair Current visit: Yes Status: Acute Category: Surgical Code(s): Z98.890 - Other
[2018-08-13 09:28] VITALS: O2SAT 96
--- NOTE | 2018-08-13 14:27 | HMH.ACPN ---
Internal Medicine - PN: Subj *Date: 08/13/18 *Time: 14:27 Exam Vital signs and Labs for Last 24 Hours: Temp Pulse Resp BP Pulse Ox 97.8 F 68 17 101/50 L 96 08/13/18 08:00 08/13/18 08:00 08/13/18 08:00 08/13/18 08:00 08/13/18 09:28 I & O for Last 24 hours: Intake & Output 08/10/18 08/11/18 08/12/18 08/13/18 23:59 23:59 23:59 23:59 Intake Total 440 / 440 2098 / 2098 2986 / 2986 1439 / 1439 Output Total 600 / 600 700 / 700 300 / 300 Balance 440 / 440 1498 / 1498 2286 / 2286 1139 / 1139 Weight 122.697 kg 120.656 kg 129.8 kg 130.379 kg Microbiology Reports for the Last 24 Hours: Microbiology 08/10/18 13:00 Urine,Catheterized Urine Culture - Preliminary Gram Positive Cocci 08/10/18 14:45 Leg,Left Gram Stain - Final 08/10/18 14:45 Leg,Left Wound Culture - Final Staphylococcus aureus Staphylococcus epidermidis 08/10/18 12:45 Blood Blood Culture - Preliminary Staphylococcus aureus 08/10/18 12:45 Blood Blood Culture - Preliminary NO GROWTH AFTER 48 HOURS Assessment and Plan (1) MRSA bacteremia Current visit: Yes Status: Acute Category: Medical Code(s): R78.81 - Bacteremia (2) Petechial rash Current visit: Yes Status: Acute Category: Medical Code(s): R23.3 - Spontaneous ecchymoses (3) Postoperative wound infection Current visit: Yes Status: Acute Category: Medical Code(s): T81.49XA - Infection following a procedure, other surgical site, initial encounter (4) Hyperkalemia Current visit: Yes Status: Acute Category: Medical Code(s): E87.5 - Hyperkalemia (5) Renal insufficiency Current visit: Yes Status: Acute Category: Medical Code(s): N28.9 - Disorder of kidney and ureter, unspecified (6) Hypertension Current visit: Yes Status: Chronic Category: Medical Code(s): I10 - Essential (primary) hypertension (7) Arthritis Current visit: Yes Status: Chronic Category: Medical Code(s): M19.90 - Unspecified osteoarthritis, unspecified site (8) Degenerative disc disease Current visit: Yes Status: Chronic Category: Medical (9) GERD (gastroesophageal reflux disease) Current visit: Yes Status: Chronic Category: Medical Code(s): K21.9 - Gastro-esophageal reflux disease without esophagitis (10) Status post knee replacement Current visit: Yes Status: Acute Category: Surgical Code(s): Z96.659 - Presence of unspecified artificial knee joint (11) Status post tendon repair Current visit: Yes Status: Acute Category: Surgical Code(s): Z98.890 - Other specified postprocedural states (12) Dyspnea Current visit: Yes Status: Acute Category: Medical Code(s): R06.00 - Dyspnea, unspecified The patient's infection will respond to the chosen ABx?: Yes Is the patient receiving the right drug, dose, and route?: Yes Could a more targeted ABx be ordered?: No
[2018-08-13 15:42] VITALS: BP 105/60; PULSE 70; RESP 18; TEMP 36.6; O2SAT 96
[2018-08-13 20:00] VITALS: BP 113/57; PULSE 69; RESP 18; TEMP 36.6; O2SAT 98
--- NOTE | 2018-08-13 21:26 | PC.NURSE ---
Pt has generalized rash across entire body that is consistent with previous assessments. Pt states she got it when she got this infection . Pt appears to be neglectful of all extremities and is very unwilling to move against gravity but is able to do so. Pt insisted RN put her medications in her mouth while she held her water. Pt has no complaints or concerns at this time. Pt was encouraged to move and change her position in the bed to preserve her skin integrity. IV flowing with no issues. Left leg dressing is clean, dry, and intact. Will give report to Natalya Shi at 0000.
[2018-08-14 04:00] VITALS: BP 119/58; PULSE 68; RESP 18; TEMP 36.6; O2SAT 96
[2018-08-14 05:20] VITALS: BMI 46.1
[2018-08-14 06:46] LABS: Basophils % 0.1 % (0.1-2.0); Hemoglobin 8.4 g/dL (12.2-16.2); Lymphocytes # 1.3 K/mm3 (0.7-4.5); Lymphocytes % 16.6 % (10-50); Mean Corpuscular HGB Conc 31.8 g/dL (31.8-35.4); Mean Corpuscular Hemoglobin 27.8 pg (27.0-31.2); Mean Corpuscular Volume 87.3 fl (81-99); Mean Platelet Volume 7.2 fl (7.4-10.4); Monocytes # 0.5 K/mm3 (0.1-1.0); Monocytes % 6.2 % (1.7-9.3); Neutrophils % 77.1 % (37.0-80.0); Platelet Count 378 K/mm3 (142-424); Red Blood Count 3.03 M/mm3 (4.20-5.40); Red Cell Distribution Width 15.4 % (11.5-17.5); White Blood Count 7.7 K/mm3 (4.8-10.8)
[2018-08-14 06:48] LABS: Hematocrit 26.5 % (37.0-47.0)
[2018-08-14 06:53] LABS: Anion Gap 15.3 mEq/L (5-15); Blood Urea Nitrogen 51 mg/dL (7-18); Carbon Dioxide 20 mmol/L (21.0-32.0); Chloride 105 mmol/L (98-107); Creatinine Clearance Estimated 31 mL/min (50-200); Creatinine,Serum 1.72 mg/dL (0.55-1.02); Estimated Glomerular Filt Rate 30 ml/min (>60); GFR (African American) 36 ML/MIN (>60); Glucose 92 mg/dL (74-106); Potassium 4.3 mmoL/L (3.5-5.1); Sodium 136 mmol/L (136-145)
[2018-08-14 07:30] VITALS: BP 117/60; PULSE 74; RESP 16; TEMP 36.6; O2SAT 97
--- NOTE | 2018-08-14 07:56 | HMH.ACPN2 ---
Internal Medicine - PN: Subj *Date: 08/14/18 *Time: 08:42 Interval history: Complains of feeling tired. Did not sleep last night. Requesting a sleeping pill. Otherwise no complaints except generalized weakness. Appetite is good. Exam Vital signs and Labs for Last 24 Hours: Temp Pulse Resp BP Pulse Ox 97.8 F 74 16 117/60 97 08/14/18 07:30 08/14/18 07:30 08/14/18 07:30 08/14/18 07:30 08/14/18 07:30 Laboratory Results - last 24 hr 08/14/18 06:13: WBC 7.7 D, RBC 3.03 L, Hgb 8.4 L, Hct 26.5 L, MCV 87.3, MCH 27.8, MCHC 31.8, RDW 15.4, Plt Count 378, MPV 7.2 L, Neut % (Auto) 77.1, Lymph % (Auto) 16.6, [place] % (Auto) 6.2, Eos % (Auto) 0.0 L, Baso % (Auto) 0.1, Neut # (Auto) 6.0, Lymph # (Auto) 1.3, [place] # (Auto) 0.5, Eos # (Auto) 0.0, Baso # (Auto) 0.0 08/14/18 06:13: Sodium 136, Potassium 4.3, Chloride 105, Carbon Dioxide 20 L, Anion Gap 15.3 H, BUN 51 H, Creatinine 1.72 H D, Estimated Creat Clear 31, Estimated GFR 30 L, Est GFR ( Amer) 36 L D, Glucose 92, Calcium 7.0 L I & O for Last 24 hours: Intake & Output 08/11/18 08/12/18 08/13/18 08/14/18 11:59 11:59 11:59 11:59 Intake Total 2438 / 2438 2246 / 2246 203 / 203 3238 / 3238 Output Total 350 / 350 600 / 600 650 / 650 900 / 900 Balance 2087 / 208 1646 / 1646 1389 / 1389 2338 / 2338 Weight 266 lb 286 lb 2.56 oz 287 lb 7 oz 287 lb 5 oz Microbiology Reports for the Last 24 Hours: Microbiology 08/10/18 13:00 Urine,Catheterized Urine Culture - Final Enterococcus faecalis 08/10/18 14:45 Leg,Left Gram Stain - Final 08/10/18 14:45 Leg,Left Wound Culture - Final Staphylococcus aureus Staphylococcus epidermidis 08/10/18 12:45 Blood Blood Culture - Preliminary Staphylococcus aureus Narrative: She is alert and oriented. Color is slightly pale. Lungs are clear to auscultation. Heart is distant but regular. Abdomen obese, soft nondistended with no tenderness. Her rash is slowly fading. Assessment and Plan (1) MRSA bacteremia Current visit: Yes Status: Acute Category: Medical Code(s): R78.81 - Bacteremia (2) Petechial rash Current visit: Yes Status: Acute Category: Medical Code(s): R23.3 - Spontaneous ecchymoses (3) Postoperative wound infection Current visit: Yes Status: Acute Category: Medical Code(s): T81.49XA - Infection following a procedure, other surgical site, initial encounter (4) Hyperkalemia Current visit: Yes Status: Acute Category: Medical Code(s): E87.5 - Hyperkalemia (5) Renal insufficiency Current visit: Yes Status: Acute Category: Medical Code(s): N28.9 - Disorder of kidney and ureter, unspecified (6) Hypertension Current visit: Yes Status: Chronic Category: Medical Code(s): I10 - Essential (primary) hypertension (7) Arthritis Current visit: Yes Status: Chronic Category: Medical Code(s): M19.90 - Unspecified osteoarthritis, unspecified site (8) Degenerative disc disease Current visit: Yes Status: Chronic Category: Medical (9) GERD (gastroesophageal reflux disease) Current visit: Yes Status: Chronic Category: Medical Code(s): K21.9 - Gastro-esophageal reflux disease without esophagitis (10) Status post knee replacement Current visit: Yes Status: Acute Category: Surgical Code(s): Z96.659 - Presence of unspecified artificial knee joint (11) Status post tendon repair Current visit: Yes Status: Acute Category: Surgical Code(s): Z98.890 - Other specified postprocedural states (12) Dyspnea Current visit: Yes Status: Acute Category: Medical Code(s): R06.00 - Dyspnea, unspecified (13) Anemia Current visit: Yes Status: Acute Category: Medical Code(s): D64.9 - Anemia, unspecified - Assessment and plan all Dx Assessment and Plan for all problems:: Continue current IV vancomycin.
[2018-08-14 08:17] VITALS: O2SAT 97
[2018-08-14 15:36] VITALS: BP 144/63; PULSE 74; RESP 15; TEMP 36.7; O2SAT 95
--- NOTE | 2018-08-14 15:49 | PC.NURSE ---
patient sitting up in bed, family at bedside. ice and trash done.
--- NOTE | 2018-08-14 18:20 | DIET.NUTRFU ---
Pt eating fair with a 50% average at the last 4 meals. Will continue to supplement diet with breeze supplements and protein fortified foods to help with wound healing. Pt potassium has improved within a normal range. Potassium restrictions will be removed from diet. Will continue to monitor.
[2018-08-14 19:39] VITALS: BP 129/67; PULSE 78; RESP 16; TEMP 36.9; O2SAT 97
--- NOTE | 2018-08-15 03:04 | PC.NURSE ---
A&OX4. L THIGH WOUND NOTED; DSG C/D/I. PURPURA AND PETECHIAE RASH NOTED TO BUE, ABD, AND BILAT THIGHS. PT. C/O PAIN IN R KNEE RATING 4/10; RELIEVED WITH MORPHINE PER MAR. PT. HAS NOT C/O N/V, SOB OR DIZZINESS. FC SITE C/D/I SHOWING NO S/S OF INFECTION; URINE BRIGHT YELLOW IN COLOR WITH SEDIMENT PRESENT. PT. HAS APPEARED TO BE SLEEPING T/O SHIFT. IV PATENT WHEN FLUSHED SHOWING NO S/S OF INFILTRATION. VSS. WILL CONTINUE TO MONITOR.
[2018-08-15 04:00] VITALS: BP 140/68; PULSE 85; RESP 16; TEMP 36.6; O2SAT 95
[2018-08-15 05:07] VITALS: BMI 46.1
[2018-08-15 06:42] LABS: Basophils % 0.1 % (0.1-2.0); Eosinophils # 0.1 K/mm3 (0.0-0.4); Eosinophils % 0.6 % (0.1-12.0); Hematocrit 30.5 % (37.0-47.0); Hemoglobin 9.5 g/dL (12.2-16.2); Lymphocytes # 2.3 K/mm3 (0.7-4.5); Lymphocytes % 25.4 % (10-50); Mean Corpuscular Hemoglobin 27.2 pg (27.0-31.2); Mean Corpuscular Volume 87.7 fl (81-99); Mean Platelet Volume 6.8 fl (7.4-10.4); Monocytes # 0.8 K/mm3 (0.1-1.0); Monocytes % 8.7 % (1.7-9.3); Neutrophils # 5.9 K/mm3 (1.8-7.8); Neutrophils % 65.2 % (37.0-80.0); Platelet Count 414 K/mm3 (142-424); Red Blood Count 3.47 M/mm3 (4.20-5.40); Red Cell Distribution Width 15.6 % (11.5-17.5)
[2018-08-15 07:46] VITALS: BP 134/72; PULSE 95; RESP 18; TEMP 37.1; O2SAT 97
--- NOTE | 2018-08-15 08:13 | XR_ITS ---
XR chest portable PICC plac HISTORY: ITS.REASON: Confirm PICC line placement ORDERING PHYSICIAN: Juan José Kendall MD PATIENT AGE: 62 years COMPARISON: 08/11/2018 FINDINGS: There is been interval insertion of the left upper extremity PICC line. The tip is in good position in the region of the superior vena cava. Cardiovascular structures are unremarkable. There is mild left basilar atelectasis and there is a hiatal hernia. IMPRESSION Good position of recently placed PICC line.
--- NOTE | 2018-08-15 08:52 | HMH.ACPN2 ---
<Dahlia Leigh - Last Filed: 08/15/18 08:52> Internal Medicine - PN: Subj *Date: 08/15/18 *Time: 08:52 Interval history: Patient was able to sleep some during the night. She sat on the side of the bed and ate her breakfast this morning. She does not like the food. She needs something for her bowels. She states that her breathing is better. She denies any chest pain. Discussed getting out of bed with patient and . He states that she has not stood on her right leg since her last surgery. Patient has difficulty with moving the leg. Her right knee does hurt. has been performing passive range of motion. Exam Vital signs and Labs for Last 24 Hours: Temp Pulse Resp BP Pulse Ox 98.7 F 95 H 18 134/72 97 08/15/18 07:46 08/15/18 07:46 08/15/18 07:46 08/15/18 07:46 08/15/18 07:46 Laboratory Results - last 24 hr 08/15/18 06:22: WBC 9.0, RBC 3.47 L, Hgb 9.5 L, Hct 30.5 L, MCV 87.7, MCH 27.2, MCHC 31.0 L, RDW 15.6, Plt Count 414, MPV 6.8 L, Neut % (Auto) 65.2, Lymph % (Auto) 25.4, [place] % (Auto) 8.7, Eos % (Auto) 0.6, Baso % (Auto) 0.1, Neut # (Auto) 5.9, Lymph # (Auto) 2.3, [place] # (Auto) 0.8, Eos # (Auto) 0.1, Baso # (Auto) 0.0 I & O for Last 24 hours: Intake & Output 08/12/18 08/13/18 08/14/18 08/15/18 11:59 11:59 11:59 11:59 Intake Total 2246 / 2246 2039 / 2039 3238 / 3238 730 / 730 Output Total 600 / 600 650 / 650 900 / 900 1850 / 1850 Balance 1646 / 1646 1389 / 1389 2338 / 2338 -1120 / -1120 Weight 286 lb 2.56 oz 287 lb 7 oz 287 lb 5 oz 287 lb 5 oz Microbiology Reports for the Last 24 Hours: Microbiology 08/10/18 13:00 Urine,Catheterized Urine Culture - Final Enterococcus faecalis - Constitutional no acute distress Comments: sHe appears comfortable lying in the bed. - *Routine Respiratory Exam Comments: Few audible bilateral posterior crackles - *Routine Cardiovascular Exam Present: RRR - *Routine Abdominal Exam Present: soft, normoactive bowel sounds. Absent: tenderness - *Routine Exam Comments: Has Bazan catheter. - *Routine Extremities Exam Absent: edema Comments: Left visible foot/ toes are warm and pink. Right leg without edema. - *Routine Skin Exam Present: petechiae, wounds (Lower surgical wound is clean dry and healed. 1 cm opening of wound being packed with Betadine gauze.) Comments: Pupura and petechiae are gradually resolving. Some of the blisters on the right upper arm did open and appeared to be healing as 2 blisters on her right fingers and hand - *Routine Neurological Exam Present: alert, oriented X3 Assessment and Plan (1) MRSA bacteremia Current visit: Yes Status: Acute Category: Medical Code(s): R78.81 - Bacteremia (2) Petechial rash Current visit: Yes Status: Acute Category: Medical Code(s): R23.3 - Spontaneous ecchymoses (3) Postoperative wound infection Current visit: Yes Status: Acute Category: Medical Code(s): T81.49XA - Infection following a procedure, other surgical site, initial encounter (4) Hyperkalemia Current visit: Yes Status: Acute Category: Medical Code(s): E87.5 - Hyperkalemia (5) Renal insufficiency Current visit: Yes Status: Acute Category: Medical Code(s): N28.9 - Disorder of kidney and ureter, unspecified (6) Hypertension Current visit: Yes Status: Chronic Category: Medical Code(s): I10 - Essential (primary) hypertension (7) Arthritis Current visit: Yes Status: Chronic Category: Medical Code(s): M19.90 - Unspecified osteoarthritis, unspecified site (8) Degenerative disc disease Current visit: Yes Status: Chronic Category: Medical (9) GERD (gastroesophageal reflux disease) Current visit: Yes Status: Chronic Category: Medical Code(s): K21.9 - Gastro-esophageal reflux disease without esophagitis (10) Status post knee replacement Current visit: Yes Status: Acute Category: [place]
--- NOTE | 2018-08-15 08:56 | P.PN_ITS ---
<Dahlia Leigh - Last Filed: 08/15/18 08:52> Internal Medicine - PN: Subj *Date: 08/15/18 *Time: 08:52 Interval history: Patient was able to sleep some during the night. She sat on the side of the bed and ate her breakfast this morning. She does not like the food. She needs something for her bowels. She states that her breathing is better. She denies any chest pain. Discussed getting out of bed with patient and . He states that she has not stood on her right leg since her last surgery. Patient has difficulty with moving the leg. Her right knee does hurt. has been performing passive range of motion. Exam Vital signs and Labs for Last 24 Hours: Temp Pulse Resp BP Pulse Ox 98.7 F 95 H 18 134/72 97 08/15/18 07:46 08/15/18 07:46 08/15/18 07:46 08/15/18 07:46 08/15/18 07:46 Laboratory Results - last 24 hr 08/15/18 06:22: WBC 9.0, RBC 3.47 L, Hgb 9.5 L, Hct 30.5 L, MCV 87.7, MCH 27.2, MCHC 31.0 L, RDW 15.6, Plt Count 414, MPV 6.8 L, Neut % (Auto) 65.2, Lymph % (Auto) 25.4, [place] % (Auto) 8.7, Eos % (Auto) 0.6, Baso % (Auto) 0.1, Neut # (Auto) 5.9, Lymph # (Auto) 2.3, [place] # (Auto) 0.8, Eos # (Auto) 0.1, Baso # (Auto) 0.0 I & O for Last 24 hours: Intake & Output 08/12/18 08/13/18 08/14/18 08/15/18 11:59 11:59 11:59 11:59 Intake Total 2246 / 2246 2039 / 2039 3238 / 3238 730 / 730 Output Total 600 / 600 650 / 650 900 / 900 1850 / 1850 Balance 1646 / 1646 1389 / 1389 2338 / 2338 -1120 / -1120 Weight 286 lb 2.56 oz 287 lb 7 oz 287 lb 5 oz 287 lb 5 oz Microbiology Reports for the Last 24 Hours: Microbiology 08/10/18 13:00 Urine,Catheterized Urine Culture - Final Enterococcus faecalis - Constitutional no acute distress Comments: sHe appears comfortable lying in the bed. - *Routine Respiratory Exam Comments: Few audible bilateral posterior crackles - *Routine Cardiovascular Exam Present: RRR - *Routine Abdominal Exam Present: soft, normoactive bowel sounds. Absent: tenderness - *Routine Exam Comments: Has Bazan catheter. - *Routine Extremities Exam Absent: edema Comments: Left visible foot/ toes are warm and pink. Right leg without edema. - *Routine Skin Exam Present: petechiae, wounds (Lower surgical wound is clean dry and healed. 1 cm opening of wound being packed with Betadine gauze.) Comments: Pupura and petechiae are gradually resolving. Some of the blisters on the right upper arm did open and appeared to be healing as 2 blisters on her right fingers and hand - *Routine Neurological Exam Present: alert, oriented X3 Assessment and Plan (1) MRSA bacteremia Current visit: Yes Status: Acute Category: Medical Code(s): R78.81 - Bacteremia (2) Petechial rash Current visit: Yes Status: Acute Category: Medical Code(s): R23.3 - Spontaneous ecchymoses (3) Postoperative wound infection Current visit: Yes Status: Acute Category: Medical Code(s): T81.49XA - Infection following a procedure, other surgical site, initial encounter (4) Hyperkalemia Current visit: Yes Status: Acute Category: Medical Code(s): E87.5 - Hyperkalemia (5) Renal insufficiency Current visit: Yes Status: Acute Category: Medical Code(s): N28.9 - Disorder of kidney and ureter, unspecif
--- NOTE | 2018-08-15 11:33 | SW/DCPLANNER ---
Addendum entered by Elda Kruger 08/15/18 14:43: Lucía from [employer] has stated that cost of IV Vanc weekly at Q36 will be roughly $71. I have informed family of this mack and they are willing to pay this mack. Families plan at time of discharge is to discharge home with home health ([facility]) and IV infusions w/ assistance from . I will follow up with family at time of discharge. Original Note: Spoke with this patient regarding discharge plans and the need for IV antibiotics at time of discharge. Patient and her were present during my visit. Patient currently has [facility] services for wound care and currently assist with dressing changes at this time. Patient and have agreed that due to patients condition patient would be best served to receive IV antibiotics at home with home health services through [facility]. Patient is currently receiving Vanc Q36. I have faxed patients facesheet and medication/dosage to Thuy at [employer] to see if patient has an OOP expense. I will follow up with patient and once I know an OOP for this patient. Patient could potentially be ready for discharge tomorrow.
--- NOTE | 2018-08-15 14:05 | PC.NURSE ---
RN CHANGED DRESSING TO LEFT THIGH AT THIS TIME, BLOODY DRAINAGE NOTED FROM PRIOR PACKING, IODOFORM PACKING STRIPS APPLIED INTO WOUND, COVER WITH 4X4, WILL CONTINUE TO MONITOR.
[2018-08-15 15:26] VITALS: BP 117/78; PULSE 73; RESP 18; TEMP 36.6; O2SAT 97
--- NOTE | 2018-08-15 17:45 | PC.NURSE ---
no acute changes noted from morning assessment, patient had a PICC placed to the L UPPER ARM, placement per chest xray. patient voices no complaints at this time. VSS, will continue to monitor.
--- NOTE | 2018-08-15 19:08 | PC.NURSE ---
report given to beau
[2018-08-15 20:00] VITALS: BP 129/72; PULSE 92; RESP 18; TEMP 36.6; O2SAT 96
--- NOTE | 2018-08-16 01:00 | PC.NURSE ---
Pt is laying in bed resting with eyes closed at this time. IV and PICC are patent, flush easily. No s/sx of infection. Bazan catheter is patent and secured to bedside. Lungs are clear, resp even and non labored. Abd soft and non tender, active bowel sounds. Pt has 2+ non pitting edema in left arm. States that is her normal. 4x4's on left leg was changed. Still wearing the wrap. Pulses are strong, toes are pink, warm. Educated pt on use of call light for any needs. Bed locked in low position, side rails up x 2, call light within reach.
[2018-08-16 04:00] VITALS: BP 135/65; PULSE 86; RESP 18; TEMP 36.6; O2SAT 97
[2018-08-16 05:36] VITALS: BMI 46.2
[2018-08-16 07:27] LABS: Basophils % 0.2 % (0.1-2.0); Eosinophils # 0.2 K/mm3 (0.0-0.4); Eosinophils % 1.8 % (0.1-12.0); Hematocrit 29.2 % (37.0-47.0); Hemoglobin 9.1 g/dL (12.2-16.2); Lymphocytes # 1.5 K/mm3 (0.7-4.5); Lymphocytes % 18.6 % (10-50); Mean Corpuscular Hemoglobin 27.6 pg (27.0-31.2); Mean Platelet Volume 6.8 fl (7.4-10.4); Monocytes # 0.6 K/mm3 (0.1-1.0); Monocytes % 7.3 % (1.7-9.3); Neutrophils # 5.8 K/mm3 (1.8-7.8); Neutrophils % 72.1 % (37.0-80.0); Platelet Count 340 K/mm3 (142-424); Red Blood Count 3.29 M/mm3 (4.20-5.40); Red Cell Distribution Width 15.8 % (11.5-17.5); White Blood Count 8.1 K/mm3 (4.8-10.8)
[2018-08-16 07:31] LABS: Anion Gap 12.7 mEq/L (5-15); Blood Urea Nitrogen 45 mg/dL (7-18); Calcium 7.6 mg/dL (8.5-10.1); Carbon Dioxide 22 mmol/L (21.0-32.0); Chloride 110 mmol/L (98-107); Creatinine Clearance Estimated 39 mL/min (50-200); Creatinine,Serum 1.39 mg/dL (0.55-1.02); Estimated Glomerular Filt Rate 38 ml/min (>60); GFR (African American) 46 ML/MIN (>60); Glucose 98 mg/dL (74-106); Potassium 3.7 mmoL/L (3.5-5.1); Sodium 141 mmol/L (136-145)
[2018-08-16 08:00] VITALS: BP 168/87; PULSE 96; RESP 16; TEMP 37; O2SAT 96
[2018-08-16 08:15] VITALS: O2SAT 96
--- NOTE | 2018-08-16 09:21 | HMH.ACPN2 ---
<Dahlia Leigh - Last Filed: 08/16/18 09:21> Internal Medicine - PN: Subj *Date: 08/16/18 *Time: 09:21 Interval history: Patient had a pretty good day yesterday. She eats poorly. She denies nausea and vomiting. has been exercising her right leg. She had a PICC line placed yesterday. She thinks she might go home today. She states her breathing is better. Denies chest pain. She would like to keep her Bazan catheter. Bowels have not moved. MiraLAX was started yesterday. Exam Vital signs and Labs for Last 24 Hours: Temp Pulse Resp BP Pulse Ox 98.6 F 96 H 16 168/87 H 96 08/16/18 08:00 08/16/18 08:00 08/16/18 08:00 08/16/18 08:00 08/16/18 08:00 Laboratory Results - last 24 hr 08/16/18 06:59: WBC 8.1, RBC 3.29 L, Hgb 9.1 L, Hct 29.2 L, MCV 89.0, MCH 27.6, MCHC 31.0 L, RDW 15.8, Plt Count 340, MPV 6.8 L, Neut % (Auto) 72.1, Lymph % (Auto) 18.6, [place] % (Auto) 7.3, Eos % (Auto) 1.8, Baso % (Auto) 0.2, Neut # (Auto) 5.8, Lymph # (Auto) 1.5, [place] # (Auto) 0.6, Eos # (Auto) 0.2, Baso # (Auto) 0.0 08/16/18 07:00: Sodium 141, Potassium 3.7, Chloride 110 H, Carbon Dioxide 22, Anion Gap 12.7, BUN 45 H, Creatinine 1.39 H, Estimated Creat Clear 39, Estimated GFR 38 L, Est GFR ( Amer) 46 L D, Glucose 98, Calcium 7.6 L I & O for Last 24 hours: Intake & Output 08/13/18 08/14/18 08/15/18 08/16/18 11:59 11:59 11:59 11:59 Intake Total 2038 / 2038 3238 / 3238 1150 / 1150 360 / 360 Output Total 650 / 650 900 / 900 2750 / 2750 600 / 600 Balance 1389 / 1389 2338 / 2338 -1600 / -1600 -240 / -240 Weight 287 lb 7 oz 287 lb 5 oz 287 lb 5 oz 287 lb 7 oz Microbiology Reports for the Last 24 Hours: Microbiology 08/10/18 12:45 Blood Blood Culture - Final NO GROWTH AFTER 5 DAYS Radiology Reports for the Last 24 Hours: Chest x-ray for PICC line placement 08/15/2018 Cardiovascular structures are unremarkable. There is mild left basilar atelectasis and there is a hiatal hernia. IMPRESSION Good position of recently placed PICC line. - Constitutional no acute distress Comments: Resting comfortably in the bed appears comfortable - *Routine Respiratory Exam Present: crackles (Few bibasilar) - *Routine Cardiovascular Exam Present: RRR - *Routine Abdominal Exam Present: soft, normoactive bowel sounds. Absent: tenderness - *Routine Exam Comments: His Bazan catheter - *Routine Extremities Exam Present: edema (Left arm) - *Routine Neurological Exam Present: alert, oriented X3 Assessment and Plan (1) MRSA bacteremia Status: Acute Category: Medical Code(s): R78.81 - Bacteremia (2) Petechial rash Status: Acute Category: Medical Code(s): R23.3 - Spontaneous ecchymoses (3) Postoperative wound infection Status: Acute Category: Medical Code(s): T81.49XA - Infection following a procedure, other surgical site, initial encounter (4) Hyperkalemia Status: Acute Category: Medical Code(s): E87.5 - Hyperkalemia (5) Renal insufficiency Status: Acute Category: Medical Code(s): N28.9 - Disorder of kidney and ureter, unspecified (6) Hypertension Status: Chronic Category: Medical Code(s): I10 - Essential (primary) hypertension (7) Arthritis Status: Chronic Category: Medical Code(s): M19.90 - Unspecified osteoarthritis, unspecified site (8) Degenerative disc disease Status: Chronic Category: Medical (9) GERD (gastroesophageal reflux disease) Status: Chronic Category: Medical Code(s): K21.9 - Gastro-esophageal reflux disease without esophagitis (10) Status post knee replacement Status: Acute Category: Surgical Code(s): Z96.659 - Presence of unspecified artificial knee joint (11) Status post tendon repair Status: Acute Category: Surgical Code(s): Z98.890 - Other specified postprocedural states (12) Dyspnea Status: Acute Category: Medical Code(s): R06.00 - Dyspnea, unspecified
--- NOTE | 2018-08-16 09:24 | P.PN_ITS ---
<Dahlia Leigh - Last Filed: 08/16/18 09:21> Internal Medicine - PN: Subj *Date: 08/16/18 *Time: 09:21 Interval history: Patient had a pretty good day yesterday. She eats poorly. She denies nausea and vomiting. has been exercising her right leg. She had a PICC line placed yesterday. She thinks she might go home today. She states her breathing is better. Denies chest pain. She would like to keep her Bazan catheter. Bowels have not moved. MiraLAX was started yesterday. Exam Vital signs and Labs for Last 24 Hours: Temp Pulse Resp BP Pulse Ox 98.6 F 96 H 16 168/87 H 96 08/16/18 08:00 08/16/18 08:00 08/16/18 08:00 08/16/18 08:00 08/16/18 08:00 Laboratory Results - last 24 hr 08/16/18 06:59: WBC 8.1, RBC 3.29 L, Hgb 9.1 L, Hct 29.2 L, MCV 89.0, MCH 27.6, MCHC 31.0 L, RDW 15.8, Plt Count 340, MPV 6.8 L, Neut % (Auto) 72.1, Lymph % (Auto) 18.6, [place] % (Auto) 7.3, Eos % (Auto) 1.8, Baso % (Auto) 0.2, Neut # (Auto) 5.8, Lymph # (Auto) 1.5, [place] # (Auto) 0.6, Eos # (Auto) 0.2, Baso # (Auto) 0.0 08/16/18 07:00: Sodium 141, Potassium 3.7, Chloride 110 H, Carbon Dioxide 22, Anion Gap 12.7, BUN 45 H, Creatinine 1.39 H, Estimated Creat Clear 39, Estimated GFR 38 L, Est GFR ( Amer) 46 L D, Glucose 98, Calcium 7.6 L I & O for Last 24 hours: Intake & Output 08/13/18 08/14/18 08/15/18 08/16/18 11:59 11:59 11:59 11:59 Intake Total 2038 / 2038 3238 / 3238 1150 / 1150 360 / 360 Output Total 650 / 650 900 / 900 2750 / 2750 600 / 600 Balance 1389 / 1389 2338 / 2338 -1600 / -1600 -240 / -240 Weight 287 lb 7 oz 287 lb 5 oz 287 lb 5 oz 287 lb 7 oz Microbiology Reports for the Last 24 Hours: Microbiology 08/10/18 12:45 Blood Blood Culture - Final NO GROWTH AFTER 5 DAYS Radiology Reports for the Last 24 Hours: Chest x-ray for PICC line placement 08/15/2018 Cardiovascular structures are unremarkable. There is mild left basilar atelectasis and there is a hiatal hernia. IMPRESSION Good position of recently placed PICC line. - Constitutional no acute distress Comments: Resting comfortably in the bed appears comfortable - *Routine Respiratory Exam Present: crackles (Few bibasilar) - *Routine Cardiovascular Exam Present: RRR - *Routine Abdominal Exam Present: soft, normoactive bowel sounds. Absent: tenderness - *Routine Exam Comments: His Bazan catheter - *Routine Extremities Exam Present: edema (Left arm) - *Routine Neurological Exam Present: alert, oriented X3 Assessment and Plan (1) MRSA bacteremia Status: Acute Category: Medical Code(s): R78.81 - Bacteremia (2) Petechial rash Status: Acute Category: Medical Code(s): R23.3 - Spontaneous ecchymoses (3) Postoperative wound infection Status: Acute Category: Medical Code(s): T81.49XA - Infection following a procedure, other surgical site, initial encounter (4) Hyperkalemia Status: Acute Category: Medical Code(s): E87.5 - Hyperkalemia (5) Renal insufficiency Status: Acute Category: Medical Code(s): N28.9 - Disorder of kidney and ureter, unspecified (6) Hypertension Status: Chronic Category: Medical Code(s): I10 - Essential (primary) hypertension (7) Arthritis Status: Chronic Category: Medical Code(s): M19.90 - Unspe
[2018-08-16 10:14] LABS: Vancomycin,Trough 23.2 mcg/ml (10.0-20.0)
--- NOTE | 2018-08-16 10:19 | HMH.PHAINT ---
DISCHARGE COUNSELING PROVIDED TO PATIENT FOR ALL MEDICATIONS. DISCUSSED NEW PRESCRIPTION FOR VANCOMYCIN TO BE GIVEN BY HOME HEALTH. GABAPENTIN WAS LISTED NEW BUT IT IS A CONTINUED MED AND PATIENT SAYS SHE HAS SOME AT HOME. PATIENT VERBALIZED UNDERSTANDING AND DID NOT HAVE ANY QUESTIONS.
--- NOTE | 2018-08-16 10:24 | HMH.PHACONS ---
- Pharmacy Consult Date: 08/16/18 Time: 10:24 Referring provider: DR. SHEPARD Reason for Consult:: VANCOMYCIN TROUGH LEVEL AND DOSING INTERVAL CHANGE Allergies and ADEs:: Allergies Allergy/AdvReac Type Severity Reaction Status Date / Time amoxicillin [From Augmentin] Allergy Severe Rash Verified 08/10/18 18:40 clavulanic acid Allergy Severe Rash Verified 08/10/18 18:40 [From Augmentin] clarithromycin [From BIAXIN] Allergy Unknown Verified 03/06/18 22:23 Home Medications:: Home Medications Medication Instructions Recorded Confirmed Type Aspirin [Aspirin 325mg Tab] 325 mg PO BID 03/06/18 08/10/18 History Baclofen [Lioresal 10mg tablet] 10 mg PO BIDP PRN 03/06/18 08/11/18 History Celecoxib 200 mg PO DAILY 03/06/18 08/10/18 History Metoclopramide HCl [Metoclopramide 10 mg PO BID 03/06/18 08/11/18 History 10mg Tablet] Metoprolol Tartrate [Lopressor 50 mg PO DAILY 03/06/18 08/11/18 History 50mg tablet] Morphine Sulfate [Morphine Sulfate 30 mg PO DIRECTED 03/06/18 08/11/18 History ER 30mg Cap] Omeprazole [Omeprazole 20mg 20 mg PO DAILY 03/06/18 08/10/18 History Capsule] Simvastatin 40 mg PO HS 03/06/18 08/11/18 History Topiramate 25 mg PO BID 03/06/18 08/11/18 History Oxybutynin Chloride [Ditropan 5mg 5 mg PO BID 08/11/18 08/11/18 History tablet] Potassium Chloride [Klor-con 20 20 meq PO BID 08/11/18 08/11/18 History mEq tablet] Gabapentin [Gabapentin 300mg Cap] 300 mg PO BID #60 cap 08/16/18 Rx Vancomycin HCl [Vancomycin 1000mg 2,250 mg IV Q36H 10 Days #7 vial 08/16/18 Rx Vial] Height: 1.68 m Weight: 130.379 kg Laboratory Results:: Laboratory Results - last 24 hr 08/16/18 06:59: WBC 8.1, RBC 3.29 L, Hgb 9.1 L, Hct 29.2 L, MCV 89.0, MCH 27.6, MCHC 31.0 L, RDW 15.8, Plt Count 340, MPV 6.8 L, Neut % (Auto) 72.1, Lymph % (Auto) 18.6, [place] % (Auto) 7.3, Eos % (Auto) 1.8, Baso % (Auto) 0.2, Neut # (Auto) 5.8, Lymph # (Auto) 1.5, [place] # (Auto) 0.6, Eos # (Auto) 0.2, Baso # (Auto) 0.0 08/16/18 07:00: Sodium 141, Potassium 3.7, Chloride 110 H, Carbon Dioxide 22, Anion Gap 12.7, BUN 45 H, Creatinine 1.39 H, Estimated Creat Clear 39, Estimated GFR 38 L, Est GFR ( Amer) 46 L D, Glucose 98, Calcium 7.6 L 08/16/18 09:25: Vancomycin Trough 23.2 H Medical History: Reports:: Cancer (CERVICAL), Hypertension Denies:: Diabetes Mellitus Type 1, Diabetes Mellitus Type 2, MRSA Assessment and Plan (1) MRSA bacteremia Current visit: Yes Status: Acute Category: Medical Code(s): R78.81 - Bacteremia (2) Petechial rash Current visit: Yes Status: Acute Category: Medical Code(s): R23.3 - Spontaneous ecchymoses (3) Postoperative wound infection Current visit: Yes Status: Acute Category: Medical Code(s): T81.49XA - Infection following a procedure, other surgical site, initial encounter (4) Hyperkalemia Current visit: Yes Status: Acute Category: Medical Code(s): E87.5 - Hyperkalemia (5) Renal insufficiency Current visit: Yes Status: Acute Category: Medical Code(s): N28.9 - Disorder of kidney and ureter, unspecified (6) Hypertension Current visit: Yes Status: Chronic Category: Medical Code(s): I10 - Essential (primary) hypertension (7) Arthritis Current visit: Yes Status: Chronic Category: Medical Code(s): M19.90 - Unspecified osteoarthritis, unspecified site (8) Degenerative disc disease Current visit: Yes Status: Chronic Category: Medical (9) GERD (gastroesophageal reflux disease) Current visit: Yes Status: Chronic Category: Medical Code(s): K21.9 - Gastro-esophageal reflux disease without esophagitis (10) Status post knee replacement Current visit: Yes Status: Acute Category: Surgical Code(s): Z96.659 - Presence of unspecified artificial knee joint (11) Status post tendon repair Current visit: Yes Status: Acute Category: Surgical Code(s): Z98.890 - Other specified postprocedural states
--- NOTE | 2018-08-16 10:27 | P.CONPHA_ITS ---
- Pharmacy Consult Date: 08/16/18 Time: 10:24 Referring provider: DR. SHEPARD Reason for Consult:: VANCOMYCIN TROUGH LEVEL AND DOSING INTERVAL CHANGE Allergies and ADEs:: Allergies Allergy/AdvReac Type Severity Reaction Status Date / Time amoxicillin [From Augmentin] Allergy Severe Rash Verified 08/10/18 18:40 clavulanic acid Allergy Severe Rash Verified 08/10/18 18:40 [From Augmentin] clarithromycin [From BIAXIN] Allergy Unknown Verified 03/06/18 22:23 Home Medications:: Home Medications Medication Instructions Recorded Confirmed Type Aspirin [Aspirin 325mg Tab] 325 mg PO BID 03/06/18 08/10/18 History Baclofen [Lioresal 10mg tablet] 10 mg PO BIDP PRN 03/06/18 08/11/18 History Celecoxib 200 mg PO DAILY 03/06/18 08/10/18 History Metoclopramide HCl [Metoclopramide 10 mg PO BID 03/06/18 08/11/18 History 10mg Tablet] Metoprolol Tartrate [Lopressor 50 mg PO DAILY 03/06/18 08/11/18 History 50mg tablet] Morphine Sulfate [Morphine Sulfate 30 mg PO DIRECTED 03/06/18 08/11/18 History ER 30mg Cap] Omeprazole [Omeprazole 20mg 20 mg PO DAILY 03/06/18 08/10/18 History Capsule] Simvastatin 40 mg PO HS 03/06/18 08/11/18 History Topiramate 25 mg PO BID 03/06/18 08/11/18 History Oxybutynin Chloride [Ditropan 5mg 5 mg PO BID 08/11/18 08/11/18 History tablet] Potassium Chloride [Klor-con 20 20 meq PO BID 08/11/18 08/11/18 History mEq tablet] Gabapentin [Gabapentin 300mg Cap] 300 mg PO BID #60 cap 08/16/18 Rx Vancomycin HCl [Vancomycin 1000mg 2,250 mg IV Q36H 10 Days #7 vial 08/16/18 Rx Vial] Height: 1.68 m Weight: 130.379 kg Laboratory Results:: Laboratory Results - last 24 hr 08/16/18 06:59: WBC 8.1, RBC 3.29 L, Hgb 9.1 L, Hct 29.2 L, MCV 89.0, MCH 27.6, MCHC 31.0 L, RDW 15.8, Plt Count 340, MPV 6.8 L, Neut % (Auto) 72.1, Lymph % (Auto) 18.6, [place] % (Auto) 7.3, Eos % (Auto) 1.8, Baso % (Auto) 0.2, Neut # (Auto) 5.8, Lymph # (Auto) 1.5, [place] # (Auto) 0.6, Eos # (Auto) 0.2, Baso # (Auto) 0.0 08/16/18 07:00: Sodium 141, Potassium 3.7, Chloride 110 H, Carbon Dioxide 22, Anion Gap 12.7, BUN 45 H, Creatinine 1.39 H, Estimated Creat Clear 39, Estimated GFR 38 L, Est GFR ( Amer) 46 L D, Glucose 98, Calcium 7.6 L 08/16/18 09:25: Vancomycin Trough 23.2 H Medical History: Reports:: Cancer (CERVICAL), Hypertension Denies:: Diabetes Mellitus Type 1, Diabetes Mellitus Type 2, MRSA Assessment and Plan (1) MRSA bacteremia Current visit: Yes Status: Acute Category: Medical Code(s): R78.81 - Bacteremia (2) Petechial rash Current visit: Yes Status: Acute Category: Medical Code(s): R23.3 - Spontaneous ecchymoses (3) Postoperative wound infection Current visit: Yes Status: Acute Category: Medical Code(s): T81.49XA - Infection following a procedure, other surgical site, initial encounter (4) Hyperkalemia Current visit: Yes Status: Acute Category: Medical Code(s): E87.5 - Hyperkalemia (5) Renal insufficiency Current visit: Yes Status: Acute Category: Medical Code(s): N28.9 - Disorder of kidney and ureter, unspecified (6) Hypertension Current visit: Yes Status: Chronic Category: Medical Code(s): I10 - Essential (primary) hypertension (7) Arthritis Current visit: Yes Status: Chronic Category: Medical Co
--- NOTE | 2018-08-16 11:21 | PC.NURSE ---
UPON D/C PATIENT A&O X4, LUNGS CLEAR, PULSES EQUAL. PATIENT REQUESTED HELP GETTING DRESSED, PATIENT PROVIDED OWN WHEELCHAIR, ARM REMOVED AND PATIENT WITH HELP FROM SPOUSE AND [facility] STAFF SCOOTED ONTO THE WHEELCHAIR FROM THE BED. RN CHANGED DRESSING ON WOUND. SEROUSANGIOUS DRAINAGE NOTED ON GAUZE, PURULENT DRAINAGE NOTED ON 4X4 GAUZE AND KERFLIX. RN PACKED WOUND WITH ISO GAUZE, COVERED WITH 4X4 AND WRAPPED WITH KEFLIX. PATIENT TOLERATED WELL. RN PHONED DR. SHEPARD'S OFFICE TO INQUIRE ABOUT REAL REMOVAL BEFORE D/C. DR. DEVYN BURRELL'S OFFICE NURSE STATED NO, LEAVE IT IN, PATIENT WILL BE GOING HOME WITH IT. NO VANCO ADMINISTRATION, VANCO TROUGH SLIGHTLY ELEVATED, DOSAGE HAS BEEN CHANGED TO EVERY 48HRS. RN SPOKE WITH MAURY RILEY IN REGARDS TO WHETHER OR NOT PATIENT'S SPOUSE WILL NEED TEACHING ABOUT IV ANTIBIOTICS, MAURY RILEY STATED NO, HOME HEALTH WILL PROVIDE THE EDUCATION. SPOUSE IS EDUCATED ON WOUND DRESSING CHANGE DAILY, SPOUSE PROVIDED DEMONSTRATION FOR RN. NO OTHER NEEDS OR CONCERNS AT THIS TIME.
--- NOTE | 2018-08-16 11:38 | SW/DCPLANNER ---
Addendum entered by Elda Kruger 08/16/18 13:16: Thuy from [employer] has stated that medication will be delivered to patients home this evening. And I have spoke with [facility] and they have stated that services will begin tomorrow morning for first dose of VANC for this patient. Patient has discharged home this afternoon. Original Note: Patient information has been faxed to [facility] for VANC Q48 and lab draws. Patient information has also been faxed to [facility] for wound care, custodial, PT/OT, IV infusion, and lab draws. I will follow up with both services today. Patient will discharge home today, will need wound care daily, and first does of IV VANC is at 8AM tomorrow morning. Patient and are aware.
--- NOTE | 2018-08-18 21:55 | HMH.DCSUM ---
General - General Admission date:: 08/10/18 <Jaun José Kendall - 09/01/18 08:25> 08/10/18 <Carol Timmons - 08/18/18 22:12> Discharge date: 08/16/18 <Carol Timmons - 08/18/18 22:12> HPI HPI: Ms. Blair is a 62-year-old female with a history of hypertension, migraine headaches, seasonal allergies, GERD, arthritis, cervical cancer, chronic back pain with degenerative disc disease who had a knee replacement in February 2018, with a patella repair in March 2018 and a reconstructed patella 6 weeks ago. She developed a wound infection and has been seeing her orthopedic surgeon weekly with home health doing daily packing of the wound. Her surgeon started her on Augmentin for the infection after which she developed a rash. She stopped taking the medication and started on Benadryl. The rash actually got worse and she developed blisters and sores as well as the redness. She denied having any fever. She did see her surgeon yesterday on 08/09/2018 and she was to follow-up with a glue drier operator for this. Her noticed a change in mental status and due to the worsening rash he brought her to the office of [facility] for evaluation. She has not been eating or drinking well for 2 days. She has been nauseated and had the dry heaves. Her bowels have not moved in a couple of days. With evaluation in the office of [facility] she was noted to be a little lethargic with a loss of memory. Petechiae and confluent rash was noted throughout her body. Dr. Alas also saw the patient while in the office. White blood cell count was 13,000. Thus she was admitted to [facility] for further evaluation and treatment with IV fluids, and will be started on clindamycin and Levaquin. Wound culture will be completed as well and she will have daily wound care. <Carol Timmons - 08/18/18 22:12> Hospital Course Hospital Course: The patient was started on IV fluids, clindamycin, Levaquin, steroids, and a wound and urine culture were ordered. Wound care was ordered and the patient's labs were monitored. The patient initially remained fatigued and nauseated. Her rash got worse after admission. Her potassium was elevated, therefore she was given Kayexalate, and it normalized. Her renal function improved with hydration. She became more oriented and lucid. She had some shortness of breath and her oxygen was in the upper 90s on room air. A chest x-ray was ordered. It showed a hiatal hernia but was otherwise negative. Her shortness of air did improve. Her wound cultures came back for MRSA as well as staph epidermidis. Both were sensitive to vancomycin, therefore her antibiotics were switched. Her blood cultures came back positive for MRSA as well. Her urine culture came back positive for Enterococcus faecalis and it was also sensitive to vancomycin. Her steroids were weaned. Her appetite improved. She was given some Restoril for sleep. She was tolerating her diet, therefore her IV fluids were discontinued as were her steroids. She had a PICC line placed. Her rash began resolving. MiraLAX was added for constipation. Her was passively exercising her right leg. She was feeling better and anxious to go home. Her white blood cell count did normalize. Her wanted to do wound care and IV antibiotics at home, therefore she was stable to be discharged home and will f/u with Dr. Kendall in the office. <Carol Timmons - 08/18/18 22:12> Objective Vital signs: Temp Pulse Resp BP Pulse Ox 98.6 F 96 H 16 168/87 H 96 08/16/18 08:00 08/16/18 08:00 08/16/18 08:00 08/16/18 08:00 08/16/18 08:15 <Juan José Kendall - 09/01/18 08:25> Temp Pulse Resp BP Pulse Ox 98.6 F 96 H 16 168/87 H 96 08/16/18 08:00 08/16/18 08:00 08/16/18 08:00 08/16/18 08:00 08/16/18 08:15 <Carol Timmons - 08/18/18 22:12> Narrative: - Constitutional no acute distress Comment
--- NOTE | 2018-08-18 22:04 | P.DS_ITS ---
General - General Admission date:: 08/10/18 <Juan José Kendall - 09/01/18 08:25> 08/10/18 <Carol Timmons - 08/18/18 22:12> Discharge date: 08/16/18 <Carol Timmons - 08/18/18 22:12> HPI HPI: Ms. Blair is a 62-year-old female with a history of hypertension, migraine headaches, seasonal allergies, GERD, arthritis, cervical cancer, chronic back pain with degenerative disc disease who had a knee replacement in February 2018, with a patella repair in March 2018 and a reconstructed patella 6 weeks ago. She developed a wound infection and has been seeing her orthopedic surgeon weekly with home health doing daily packing of the wound. Her surgeon started her on Augmentin for the infection after which she developed a rash. She stopped taking the medication and started on Benadryl. The rash actually got worse and she developed blisters and sores as well as the redness. She denied having any fever. She did see her surgeon yesterday on 08/09/2018 and she was to follow-up with a mainframe software developer for this. Her noticed a change in mental status and due to the worsening rash he brought her to the office of [facility] for evaluation. She has not been eating or drinking well for 2 days. She has been nauseated and had the dry heaves. Her bowels have not moved in a couple of days. With evaluation in the office of [facility] she was noted to be a little lethargic with a loss of memory. Petechiae and confluent rash was noted throughout her body. Dr. Alas also saw the patient while in the office. White blood cell count was 13,000. Thus she was admitted to [facility] for further evaluation and treatment with IV fluids, and will be started on clindamycin and Levaquin. Wound culture will be completed as well and she will have daily wound care. <Carol Timmons - 08/18/18 22:12> Hospital Course Hospital Course: The patient was started on IV fluids, clindamycin, Levaquin, steroids, and a wound and urine culture were ordered. Wound care was ordered and the patient's labs were monitored. The patient initially remained fatigued and nauseated. Her rash got worse after admission. Her potassium was elevated, therefore she was given Kayexalate, and it normalized. Her renal function improved with hydration. She became more oriented and lucid. She had some shortness of breath and her oxygen was in the upper 90s on room air. A chest x- ray was ordered. It showed a hiatal hernia but was otherwise negative. Her shortness of air did improve. Her wound cultures came back for MRSA as well as staph epidermidis. Both were sensitive to vancomycin, therefore her antibiotics were switched. Her blood cultures came back positive for MRSA as well. Her urine culture came back positive for Enterococcus faecalis and it was also sensitive to vancomycin. Her steroids were weaned. Her appetite improved. She was given some Restoril for sleep. She was tolerating her diet, therefore her IV fluids were discontinued as were her steroids. She had a PICC line placed. Her rash began resolving. MiraLAX was added for constipation. Her was passively exercising her right leg. She was feeling better and anxious to go home. Her white blood cell count did normalize. Her wanted to do wound care and IV antibiotics at home, therefore she was stable to be discharged home and will f/u with Dr. Kendall in the office. <Carol Timmons - 08/18/18 22:12> Objective Vital signs: Temp Pulse Resp BP Pulse Ox 98.6 F 96 H 16 168/87 H 96 08/16/18 08:00 08/16/18 08:00 08/16/18 08:00 08/16/18 08:
== END 2018-08-16 11:38 | disposition home health service (06) | DRG 607 ==
LOC: ICU 08-11 07:33 → 2ND 08-12 14:52
PROVIDERS: Nurse Practitioner Family; Admitting Provider Family Medicine; PCP Family Medicine; Visit Provider Family Medicine
DX: L27.1 Localized skin eruption due to drugs and medicaments taken internally (principal); T81.41XA Infection following a procedure, superficial incisional surgical site, initial encounter; K52.1 Toxic gastroenteritis and colitis; I10 Essential (primary) hypertension; Z96.653 Presence of artificial knee joint, bilateral; K21.9 Gastro-esophageal reflux disease without esophagitis; E87.5 Hyperkalemia; N28.9 Disorder of kidney and ureter, unspecified; M19.90 Unspecified osteoarthritis, unspecified site; R06.00 Dyspnea, unspecified; T50.3X5A Adverse effect of electrolytic, caloric and water-balance agents, initial encounter; D64.9 Anemia, unspecified; K59.00 Constipation, unspecified; B95.2 Enterococcus as the cause of diseases classified elsewhere; T36.0X5A Adverse effect of penicillins, initial encounter; B95.62 Methicillin resistant Staphylococcus aureus infection as the cause of diseases classified elsewhere; Z88.1 Allergy status to other antibiotic agents; Z85.41 Personal history of malignant neoplasm of cervix uteri; Z90.710 Acquired absence of both cervix and uterus; Z83.3 Family history of diabetes mellitus; Z82.49 Family history of ischemic heart disease and other diseases of the circulatory system; Z80.3 Family history of malignant neoplasm of breast; Z79.82 Long term (current) use of aspirin; Z79.899 Other long term (current) drug therapy; Z98.890 Other specified postprocedural states
CPT/HCPCS: 36415; 36569; 71045; 80048; 80053; 80202; 83605; 85007; 85025; 87040; 87070; 87077; 87086; 87088; 87186; 87205; 93005; C1751; J1956; J2405; J3370

== ENCOUNTER 2018-08-19 14:30 | Inpatient (IN) | payer BC, MEDICARE, SELFPAY ==
[2018-08-19] VITALS (8 sets, daily range): BP systolic 115–143; BP diastolic 41–66; PULSE 52–63; RESP 14–15; TEMP 36.8–37.2; O2SAT 94–99; BMI 41.9
--- NOTE | 2018-08-19 14:12 | XR_ITS ---
XR chest portable HISTORY: ITS.REASON: confused ORDERING PHYSICIAN: PATIENT AGE: 62 years COMPARISON: 08/15/2018 FINDINGS: Mild cardiomegaly without failure with moderate-sized hiatal hernia. Left upper extremity PICC line is present with the tip in the region of the superior vena cava. The lungs are clear. IMPRESSION: No change with no acute finding
[2018-08-19 14:19] LABS: Basophils % 0.1 % (0.1-2.0); Eosinophils # 0.5 K/mm3 (0.0-0.4); Eosinophils % 5.2 % (0.1-12.0); Hematocrit 27.9 % (37.0-47.0); Hemoglobin 8.7 g/dL (12.2-16.2); Lymphocytes # 0.9 K/mm3 (0.7-4.5); Lymphocytes % 8.9 % (10-50); Mean Corpuscular HGB Conc 31.1 g/dL (31.8-35.4); Mean Corpuscular Hemoglobin 27.9 pg (27.0-31.2); Mean Corpuscular Volume 89.5 fl (81-99); Mean Platelet Volume 7.9 fl (7.4-10.4); Monocytes # 0.6 K/mm3 (0.1-1.0); Monocytes % 5.4 % (1.7-9.3); Neutrophils # 8.3 K/mm3 (1.8-7.8); Neutrophils % 80.3 % (37.0-80.0); Platelet Count 234 K/mm3 (142-424); Red Blood Count 3.11 M/mm3 (4.20-5.40); Red Cell Distribution Width 16.1 % (11.5-17.5); White Blood Count 10.4 K/mm3 (4.8-10.8)
[2018-08-19 14:33] LABS: Ammonia 16 umol/L (19-54)
[2018-08-19 14:35] LABS: Troponin I < 0.02 ng/ml (0.00-0.06)
[2018-08-19 14:37] LABS: Alanine Aminotransferase 15 U/L (12-78); Albumin Level 1.6 gm/dL (3.4-5.0); Albumin/Globulin Ratio 0.4 (1.1-1.8); Alkaline Phosphatase 73 U/L (46-116); Anion Gap 14.8 mEq/L (5-15); Aspartate Amino Transferase 14 U/L (15-37); Bilirubin,Total 0.4 mg/dL (0.2-1.0); Blood Urea Nitrogen 45 mg/dL (7-18); Carbon Dioxide 20 mmol/L (21.0-32.0); Chloride 108 mmol/L (98-107); Creatinine Clearance Estimated 24 mL/min (50-200); Creatinine,Serum 2.27 mg/dL (0.55-1.02); Estimated Glomerular Filt Rate 22 ml/min (>60); GFR (African American) 26 ML/MIN (>60); Globulin 4.1 gm/dl (1.3-3.2); Glucose 125 mg/dL (74-106); Potassium 3.8 mmoL/L (3.5-5.1); Sodium 139 mmol/L (136-145); Total Protein,Serum 5.7 gm/dL (6.4-8.2)
[2018-08-19 14:41] LABS: Lactic Acid 1.2 mmol/L (0.4-2.0)
--- NOTE | 2018-08-19 14:41 | HMH.EDGENADL ---
ED Disposition Clinical Impression: Post op infection, MRSA (methicillin resistant Staphylococcus aureus), Weakness generalized, Chronic renal failure, stage 3 (moderate), Bacteriuria with pyuria, Status post knee replacement, Status post tendon repair, MRSA bacteremia, Anemia Disposition: Admitted As Inpatient Condition on Discharge: Fair Referrals: Juan José Kendall MD [Primary Care Provider] - Time of Disposition: 17:41 - Critical Care Critical Care Time: No Attestation: On , the high probability of a clinically significant, sudden or life threatening deterioration of the following system(s) required my full and direct attention, intervention and personal management. The time I documented below is in addition to time spent performing reported procedures but includes the following listed in this critical care notation. Medical Decision Making - Medical Records Medical records reviewed: Yes: I reviewed the patient's medical records. - Brant Inquiry Pt receiving controlled substance: No Brant was queried for this patient: No Vital Signs: 08/19/18 14:00 08/19/18 14:20 08/19/18 14:30 Temperature 98.9 F Temperature Source Oral Pulse Rate [Right Radial] 54 L 63 61 Respiratory Rate 14 Blood Pressure [Right Arm] 127/65 119/65 131/56 L Blood Pressure Mean [Right Arm] 85 83 81 Blood Pressure Source [Right Arm] Automatic Cuff Automatic Cuff Automatic Cuff Blood Pressure Position [Right Arm] Sitting Sitting Sitting 02 Sat by Pulse Oximetry 98 97 94 L Oxygen Delivery Method Room Air Room Air 08/19/18 16:30 08/19/18 16:56 08/19/18 17:20 Temperature Temperature Source Pulse Rate [Right Radial] 54 L 54 L 52 L Respiratory Rate Blood Pressure [Right Arm] 134/41 L 137/63 143/66 H Blood Pressure Mean [Right Arm] 72 87 91 Blood Pressure Source [Right Arm] Blood Pressure Position [Right Arm] 02 Sat by Pulse Oximetry 94 L 99 99 Oxygen Delivery Method - Lab Data Lab results reviewed: Yes: I reviewed the patient's lab results. Lab Results 08/19/18 14:05: WBC 10.4, RBC 3.11 L, Hgb 8.7 L, Hct 27.9 L, MCV 89.5, MCH 27.9, MCHC 31.1 L, RDW 16.1, Plt Count 234 D, MPV 7.9, Neut % (Auto) 80.3 H, Lymph % (Auto) 8.9 L, [place] % (Auto) 5.4, Eos % (Auto) 5.2, Baso % (Auto) 0.1, Neut # (Auto) 8.3 H, Lymph # (Auto) 0.9, [place] # (Auto) 0.6, Eos # (Auto) 0.5 H, Baso # (Auto) 0.0 08/19/18 14:05: Sodium 139, Potassium 3.8, Chloride 108 H, Carbon Dioxide 20 L, Anion Gap 14.8, BUN 45 H, Creatinine 2.27 H, Estimated Creat Clear 24, Estimated GFR 22 L, Est GFR ( Amer) 26 L, Glucose 125 H, Calcium 8.0 L, Total Bilirubin 0.4, AST 14 L, ALT 15, Alkaline Phosphatase 73, Troponin I < 0.02, Total Protein 5.7 L, Albumin 1.6 L, Globulin 4.1 H, Albumin/Globulin Ratio 0.4 L 08/19/18 14:05: Lactate 1.2 08/19/18 14:05: Ammonia 16 L 08/19/18 14:10: Urine Color Yellow, Urine Appearance Clear, Urine pH 5.5, Ur Specific [place] >= 1.030, Urine Protein 2+, Urine Glucose (UA) Negative, Urine Ketones Negative, Urine Blood 3+, Urine Nitrate Negative, Urine Bilirubin Negative, Urine Urobilinogen 0.2, Ur Leukocyte Esterase 1+ A, Urine RBC 20-50, Urine WBC 20-50, Urine Yeast 4+ 08/19/18 14:17: Specimen Source Right brachial, O2 % Room air, ABG pH 7.35, ABG pCO2 35.8, ABG pO2 83.4, ABG HCO3 19.3 L, ABG Total CO2 20.4 L, ABG O2 Saturation 96, ABG Base Excess -6.4 L, Reg Test Acceptable Result diagrams: 08/19/18 14:05 08/19/18 14:05 Orders (Tests/Meds): ED MEDICATIONS Generic Name Dose Route Start Last Admin Trade Name Freq PRN Reason Stop Dose Admin Fluconazole 200 mg 08/20/18 09:00 Diflucan 200mg Tablet PO 08/27/18 08:59 DAILY TAJ Protocol Ceftriaxone Sodium 1 gm/ 50 mls @ 100 mls/hr 08/19/18 17:45 Sodium Chloride IV 09/02/18 17:44 Q24H TAJ Protocol ORDERS Category Date Time Status Blood Culture Stat Micro 08/19/18 14:05 Received Urine Culture Stat Micro 08/19/18 14:10 Received
--- NOTE | 2018-08-19 14:45 | ED_ITS ---
ED Disposition Clinical Impression: Post op infection, MRSA (methicillin resistant Staphylococcus aureus), Weakness generalized, Chronic renal failure, stage 3 (moderate), Bacteriuria with pyuria, Status post knee replacement, Status post tendon repair, MRSA bacteremia, Anemia Disposition: Admitted As Inpatient Condition on Discharge: Fair Referrals: Juan José Kendall MD [Primary Care Provider] - Time of Disposition: 17:41 - Critical Care Critical Care Time: No Attestation: On , the high probability of a clinically significant, sudden or life threatening deterioration of the following system(s) required my full and direct attention, intervention and personal management. The time I documented below is in addition to time spent performing reported procedures but includes the following listed in this critical care notation. Medical Decision Making - Medical Records Medical records reviewed: Yes: I reviewed the patient's medical records. - Brant Inquiry Pt receiving controlled substance: No Brant was queried for this patient: No Vital Signs: 08/19/18 14:00 08/19/18 14:20 08/19/18 14:30 Temperature 98.9 F Temperature Source Oral Pulse Rate [Right Radial] 54 L 63 61 Respiratory Rate 14 Blood Pressure [Right Arm] 127/65 119/65 131/56 L Blood Pressure Mean [Right Arm] 85 83 81 Blood Pressure Source [Right Arm] Automatic Cuff Automatic Cuff Automatic Cuff Blood Pressure Position [Right Arm] Sitting Sitting Sitting 02 Sat by Pulse Oximetry 98 97 94 L Oxygen Delivery Method Room Air Room Air 08/19/18 16:30 08/19/18 16:56 08/19/18 17:20 Temperature Temperature Source Pulse Rate [Right Radial] 54 L 54 L 52 L Respiratory Rate Blood Pressure [Right Arm] 134/41 L 137/63 143/66 H Blood Pressure Mean [Right Arm] 72 87 91 Blood Pressure Source [Right Arm] Blood Pressure Position [Right Arm] 02 Sat by Pulse Oximetry 94 L 99 99 Oxygen Delivery Method - Lab Data Lab results reviewed: Yes: I reviewed the patient's lab results. Lab Results 08/19/18 14:05: WBC 10.4, RBC 3.11 L, Hgb 8.7 L, Hct 27.9 L, MCV 89.5, MCH 27.9, MCHC 31.1 L, RDW 16.1, Plt Count 234 D, MPV 7.9, Neut % (Auto) 80.3 H, Lymph % (Auto) 8.9 L, [place] % (Auto) 5.4, Eos % (Auto) 5.2, Baso % (Auto) 0.1, Neut # (Auto) 8.3 H, Lymph # (Auto) 0.9, [place] # (Auto) 0.6, Eos # (Auto) 0.5 H, Baso # (Auto) 0.0 08/19/18 14:05: Sodium 139, Potassium 3.8, Chloride 108 H, Carbon Dioxide 20 L, Anion Gap 14.8, BUN 45 H, Creatinine 2.27 H, Estimated Creat Clear 24, Estimated GFR 22 L, Est GFR ( Amer) 26 L, Glucose 125 H, Calcium 8.0 L, Total Bilirubin 0.4, AST 14 L, ALT 15, Alkaline Phosphatase 73, Troponin I < 0.02, Total Protein 5.7 L, Albumin 1.6 L, Globulin 4.1 H, Albumin/Globulin Ratio 0.4 L 08/19/18 14:05: Lactate 1.2 08/19/18 14:05: Ammonia 16 L 08/19/18 14:10: Urine Color Yellow, Urine Appearance Clear, Urine pH 5.5, Ur Specific [place] >= 1.030, Urine Protein 2+, Urine Glucose (UA) Negative, Urine Ketones Negative, Urine Blood 3+, Urine Nitrate Negative, Urine Bilirubin Nega tive, Urine Urobilinogen 0.2, Ur Leukocyte Esterase 1+ A, Urine RBC 20-50, Urine WBC 20-50, Urine Yeast 4+ 08/19/18 14:17: Specimen Source Right brachial, O2 % Room air, ABG pH 7.35, ABG pCO2 35.8, ABG pO2 83.4, ABG HCO3 19.3 L, ABG Total CO2 20.4 L, ABG O2 Saturation 96, ABG Base Excess -6
[2018-08-19 14:46] LABS: ABG Base Excess -6.4 mmol/L (-2.4-2.3); ABG HCO3 19.3 mmhg (22.0-26.0); ABG Oxygen Saturation 96 % (90-100); ABG PCO2 35.8 mmhg (35.0-45.0); ABG PH 7.35 mmol/L (7.35-7.45); ABG PO2 83.4 mmhg (80-100); ABG TCO2 20.4 mmhg (23-27)
[2018-08-19 14:49] LABS: Oxygen ROOM AIR %
[2018-08-19 14:50] LABS: Allen's Test Acceptable; Source Right Brachial
--- NOTE | 2018-08-19 15:50 | PC.NURSE ---
Elda Kruger, Clinical Laboratory Medical Director PAIRER at bedside discussing placement options with pt and family. Per Elda Kruger, Clinical Laboratory Medical Director PAIRER stated that Jose Aparicio from [place] to come speak with pt shortly.
--- NOTE | 2018-08-19 16:14 | PC.NURSE ---
care management at bedside; jah youssef at bedside completing outer evaluation
[2018-08-19 16:51] LABS: Microscopic, Urine URINE MICROSCOPIC (MICROSCOPIC)
[2018-08-19 16:54] LABS: Appearance,Urine CLEAR (Clear); Bilirubin,Urine Negative (Negative); Blood, Urine 3+ (Negative); Color,Urine YELLOW (Yellow); Glucose,Urine (UA) Negative (Negative); Ketones,Urine Negative (Negative); Leukocyte Esterase,Urine 1+ (Negative); Nitrate,Urine Negative (Negative); PH,Urine 5.5 (5.0-8.5); Protein,Urine 2+ (Negative); Specific Gravity, Urine >= 1.030 (1.005-1.030); Urobilinogen,Urine 0.2 EU/dl (0.2)
[2018-08-19 17:07] LABS: RBC,Urine 20-50 #/hpf (0-3); WBC,Urine 20-50 #/hpf (0-3); Yeast,Urine 4+ /lpf
--- NOTE | 2018-08-19 17:15 | SW/DCPLANNER ---
Addendum entered by Elda Kruger 08/19/18 17:33: Kristina from [place] has called and stated she would not be able to do anything with referral till Wednesday. I attempted to contact Ron with no answer. I have spoke with Wincher (CHRISTINA) and we will admit this patient OBS till Wednesday and search for placement on Wednesday beginning with referral to [place]. I have faxed patient information to [place]. Original Note: Received notification that this patient is in ER after discharge from [facility] this week. Patient discharged home on Wednesday with home health services for: IV Vanc Q48 and PT/OT. Patients has stated that patient has had a decline and he is physically unable to care for patient at home. has stated that he would like to look into placement options: short term, preferably under insurance, but would be willing to pay private pay if he had to. stated that it took Fire Dept and EMS to get patient to [facility]. I did contact Eva at [facility], she came and evaluated this patient then stated that they would NOT be able to meet this patients needs at this time. then stated that he would be willing to go to [place]. I am attempting to contact Kristina at [place] at this time.
--- NOTE | 2018-08-19 17:28 | PC.NURSE ---
Per Elda Kruger in case management pt needs to be admitted for observation. Dr. Yanez paged about admission
--- NOTE | 2018-08-19 17:30 | PC.NURSE ---
Dr. Yanez returned call
--- NOTE | 2018-08-19 18:33 | PC.NURSE ---
Elda Kruger, Line Pilot [employer] ARI[employer] CONSULTANT at bedside
--- NOTE | 2018-08-19 19:16 | PC.NURSE ---
report given to tj. carmen
--- NOTE | 2018-08-19 21:25 | PC.NURSE ---
PT ARRIVED TO FLOOR VIA STRETCHER @ 2009
--- NOTE | 2018-08-20 03:21 | PC.NURSE ---
UPON INITIAL ASSESSMENT PT. ABLE TO STATE NAME, , PLACE AND YEAR; HOWEVER, PT. WAS LETHARGIC AND WOULD REPEAT ANSWERS TO QUESTIONS SEVERAL TIMES. PT. ABLE TO FOLLOW COMMANDS AND IS EASILY AROUSABLE. FACIAL MOVEMENTS EQUAL; PERRLA; BUE STRENGTH AND MOVEMENT EQUAL. +2 NONPITTING GENERALIZED EDEMA NOTED. FC PRESENT SHOWING NO S/S OF INFECTION AT SITE; URINE DARK YELLOW IN COLOR. LLE WOUND NOTED WITH DSG IN PLACE; MINIMAL SEROSANGUINEOUS DRAINAGE NOTED ON 4X4. SONY WRAP IN PLACE WITH LLE CAST. LLE TOES WARM, MOVEMENT AND FEELING PRESENT; LLE ELEVATED. PT. HAS NOT C/O PAIN, DIZZINESS, SOB, N/V/D THIS SHIFT. PICC PATENT WHEN FLUSHED. PT. STATES NO NEEDS AT THIS TIME. VSS. WILL CONTINUE TO MONITOR.
[2018-08-20 04:00] VITALS: BP 123/74; PULSE 59; RESP 20; TEMP 36.8; O2SAT 98; BMI 46.4
[2018-08-20 06:33] LABS: Basophils % 0.2 % (0.1-2.0); Eosinophils # 0.4 K/mm3 (0.0-0.4); Eosinophils % 4.3 % (0.1-12.0); Hematocrit 26.7 % (37.0-47.0); Hemoglobin 8.7 g/dL (12.2-16.2); Lymphocytes % 10.7 % (10-50); Mean Corpuscular HGB Conc 32.4 g/dL (31.8-35.4); Mean Corpuscular Hemoglobin 28.3 pg (27.0-31.2); Mean Corpuscular Volume 87.4 fl (81-99); Mean Platelet Volume 7.2 fl (7.4-10.4); Monocytes # 0.5 K/mm3 (0.1-1.0); Neutrophils # 7.2 K/mm3 (1.8-7.8); Neutrophils % 79.8 % (37.0-80.0); Platelet Count 230 K/mm3 (142-424); Red Blood Count 3.06 M/mm3 (4.20-5.40); Red Cell Distribution Width 15.7 % (11.5-17.5)
[2018-08-20 06:52] LABS: Anion Gap 15.8 mEq/L (5-15); Blood Urea Nitrogen 44 mg/dL (7-18); Calcium 8.1 mg/dL (8.5-10.1); Carbon Dioxide 20 mmol/L (21.0-32.0); Chloride 108 mmol/L (98-107); Creatinine Clearance Estimated 24 mL/min (50-200); Creatinine,Serum 2.28 mg/dL (0.55-1.02); Estimated Glomerular Filt Rate 22 ml/min (>60); GFR (African American) 26 ML/MIN (>60); Glucose 95 mg/dL (74-106); Potassium 3.8 mmoL/L (3.5-5.1); Sodium 140 mmol/L (136-145)
[2018-08-20 08:00] VITALS: BP 133/62; PULSE 73; RESP 20; TEMP 36.4; O2SAT 99
--- NOTE | 2018-08-20 08:49 | HMH.HP ---
*Admission Date: 08/20/18 <Carol Tmimons - 08/20/18 08:49> *Chief complaint: weakness, confusion <Carol Timmons 08/20/18 08:49> *History of present illness: Ms. Blair is a 62-year-old female with a history of hypertension, migraine headaches, seasonal allergies, GERD, arthritis, cervical cancer, and chronic back pain with degenerative disc disease. She just recently had a knee replacement in February 2018 with a patellar repair in March 2018 and a reconstructed patella 6 weeks ago. She developed a wound infection and was seeing her orthopedic surgeon weekly with home health doing daily packing of the wound. Her surgeon had started on Augmentin for the infection after which she developed a rash. She stopped taking the Augmentin and started on Benadryl. The rash got worse and she became very lethargic. She presented to the office of [facility] on 08/10[facility]2018 and was directly admitted. She had wound cultures during that admission that came back positive for MRSA and staph epidermidis both of which were sensitive to vancomycin. Her blood cultures came back positive for MRSA as well. She was discharged home on 08/16/18 on vancomycin via PICC line. Her states she was doing well up until 2 days ago when she began getting very fatigued and confused. He states he has had difficulty getting her to eat due to nausea. Physical therapy did come and see the patient on 08/18/2018. They felt if she was no better by 08/19/2018, she should go back to the emergency room. Her states she was still feeling poorly, therefore he brought her back to the ER. Her white blood cell count was actually normal and her H&H was low but stable. Her renal function was elevated. She had a repeat chest x-ray which showed nothing acute. She was admitted for further evaluation and treatment. <Carol Timmons 08/20/18 09:09> [facility] History I have reviewed the patient's past medical history: Yes <Carol Timmons 08/20/18 09:09> Medical History: Reports:: Cancer (CERVICAL), Gastroesophageal Reflux Disease(GERD), Hyperlipidemia, Hypertension, Migraine, MRSA Denies:: Diabetes Mellitus Type 1, Diabetes Mellitus Type 2 <Carol Timmons 08/20/18 09:09> *Have you ever received a pneumonia vaccine?: No <Carol Timmons 08/20/18 08:49> *Have you received a flu vaccine this season?: Yes <Carol Timmons 08/20/18 08:49> Other Medical History: Reports: Arthritis <Carol Timmons 08/20/18 08:49> Laterality Cases: Right: Breast Biopsy, Bilateral: Total Knee Replacement, Other <Carol Timmons 08/20/18 09:09> Other Surgeries: Yes: Hysterectomy-Total, Other (Total L Knee February 2018, L knee tendon repair March 2018,) <Carol Timmons 08/20/18 08:49> Amputation: No <Carol Timmons 08/20/18 08:49> Fractures: No <Carol Timmons 08/20/18 08:49> Comment: Bilateral feet for plantar fasciitis, conization, bilateral L3-4-5 laminectomies, Patellar tendon repair right knee, patellar tendon repair knee with reconstruction of the left patellar tendon <Carol Timmons 08/20/18 09:09> - *Social History Educational Level: Attended College <Carol Timmons 08/20/18 08:49> Smoking Status: Never smoker <Carol Timmons 08/20/18 08:49> Alcohol Intake: never <Carol Timmons 08/20/18 08:49> *Occupational Status:: retired <Carol Timmons 08/20/18 08:49> Household Members: spouse <Carol Timmons 08/20/18 08:49> *Travel in the last 8 weeks: None <Carol Timmons 08/20/18 08:49> - Psychiatric History Expresses thoughts of harming self/others: None <Carol Timmons 08/20/18 08:49> Suicide Plan Description: No Plan <Carol Timmons 08/20/18 08:49> Family Hx:: Cancer, Heart Attack <Carol Timmons 08/20/18 08:49> Review of Systems - Constitutional Reports fatigue, Reports malaise, Reports weakness, Denies fever(s) <Carol Timmons 08/20/18 09:09> - Eyes Denies blurry vision, Denies double vision <Carol Timmons 08/20/18 09:09> - ENT Denies nasal
--- NOTE | 2018-08-20 09:58 | HMH.PHAVTE ---
[facility] Pharmacy VTE Monitoring - Patient Demographics Admission date: 08/19/18 Report Date: 08/20/18 Time: 09:58 Allergies/Adverse Reactions: Patient Allergies amoxicillin [From Augmentin] Allergy (Severe, Verified 08/10/18 18:40) Rash clavulanic acid [From Augmentin] Allergy (Severe, Verified 08/10/18 18:40) Rash clarithromycin [From BIAXIN] Allergy (Unknown, Verified 03/06/18 22:23) Height: 1.68 m Weight: 130.6 kg Patient Problems: Current Active Problems (Updated 08/20/18 @ 09:10 by ZECHARIAH Burgos) Status post knee replacement (Chronic) Status post tendon repair (Chronic) MRSA bacteremia (Acute) Anemia (Acute) Post op infection (Acute) MRSA (methicillin resistant Staphylococcus aureus) (Acute) Weakness generalized (Acute) Chronic renal failure, stage 3 (moderate) (Chronic) Bacteriuria with pyuria (Acute) - VTE Risk Labs: VTE Related Lab Results Hgb 8.7 g/dL (12.2-16.2) L 08/20/18 06:10 Hct 26.7 % (37.0-47.0) L 08/20/18 06:10 Plt Count 230 K/mm3 (142-424) 08/20/18 06:10 BUN 44 mg/dL (7-18) H 08/20/18 06:10 Creatinine 2.28 mg/dL (0.55-1.02) H 08/20/18 06:10 Estimated Creat Clear 24 mL/min (50-200) 08/20/18 06:10 Was VTE Risk Assessment Performed: Yes VTE Score: 6 VTE Risk Level: Moderate Risk - Prophylaxis VTE Prophylaxis Ordered?: Yes Types of VTE Prophylaxis: TEDS Knee High Location of Applied Device: Bilateral Lower Extremeties - VTE Diagnosis Confirmed Treatment or plan recommended: Continue Current Treatment
--- NOTE | 2018-08-20 10:38 | HMH.PHACONS ---
- Pharmacy Consult Date: 08/20/18 Time: 10:38 Referring provider: DR. SHEPARD Reason for Consult:: VANCOMYCIN DOSING Allergies and ADEs:: Allergies Allergy/AdvReac Type Severity Reaction Status Date / Time amoxicillin [From Augmentin] Allergy Severe Rash Verified 08/10/18 18:40 clavulanic acid Allergy Severe Rash Verified 08/10/18 18:40 [From Augmentin] clarithromycin [From BIAXIN] Allergy Unknown Verified 03/06/18 22:23 Home Medications:: Home Medications Medication Instructions Recorded Confirmed Type Baclofen [Lioresal 10mg tablet] 10 mg PO BIDP PRN 03/06/18 08/19/18 History Celecoxib 200 mg PO DAILY 03/06/18 08/19/18 History Metoclopramide HCl [Metoclopramide 10 mg PO BID 03/06/18 08/19/18 History 10mg Tablet] Metoprolol Tartrate [Lopressor 50 mg PO DAILY 03/06/18 08/19/18 History 50mg tablet] Morphine Sulfate [Morphine Sulfate 30 mg PO DIRECTED 03/06/18 08/19/18 History ER 30mg Cap] Omeprazole [Omeprazole 20mg 20 mg PO DAILY 03/06/18 08/19/18 History Capsule] Simvastatin 40 mg PO HS 03/06/18 08/19/18 History Topiramate 25 mg PO BID 03/06/18 08/19/18 History Oxybutynin Chloride [Ditropan 5mg 5 mg PO BID 08/11/18 08/19/18 History tablet] Gabapentin [Gabapentin 300mg Cap] 300 mg PO BID #60 cap 08/16/18 08/19/18 Rx Vancomycin HCl [Vancomycin 1000mg 2,250 mg IV Q36H 08/19/18 08/19/18 History Vial] Height: 1.68 m Weight: 130.6 kg Laboratory Results:: Laboratory Results - last 24 hr 08/19/18 14:05: WBC 10.4, RBC 3.11 L, Hgb 8.7 L, Hct 27.9 L, MCV 89.5, MCH 27.9, MCHC 31.1 L, RDW 16.1, Plt Count 234 D, MPV 7.9, Neut % (Auto) 80.3 H, Lymph % (Auto) 8.9 L, [place] % (Auto) 5.4, Eos % (Auto) 5.2, Baso % (Auto) 0.1, Neut # (Auto) 8.3 H, Lymph # (Auto) 0.9, [place] # (Auto) 0.6, Eos # (Auto) 0.5 H, Baso # (Auto) 0.0 08/19/18 14:05: Sodium 139, Potassium 3.8, Chloride 108 H, Carbon Dioxide 20 L, Anion Gap 14.8, BUN 45 H, Creatinine 2.27 H, Estimated Creat Clear 24, Estimated GFR 22 L, Est GFR ( Amer) 26 L, Glucose 125 H, Calcium 8.0 L, Total Bilirubin 0.4, AST 14 L, ALT 15, Alkaline Phosphatase 73, Troponin I < 0.02, Total Protein 5.7 L, Albumin 1.6 L, Globulin 4.1 H, Albumin/Globulin Ratio 0.4 L 08/19/18 14:05: Lactate 1.2 08/19/18 14:05: Ammonia 16 L 08/19/18 14:10: Urine Color Yellow, Urine Appearance Clear, Urine pH 5.5, Ur Specific [place] >= 1.030, Urine Protein 2+, Urine Glucose (UA) Negative, Urine Ketones Negative, Urine Blood 3+, Urine Nitrate Negative, Urine Bilirubin Negative, Urine Urobilinogen 0.2, Ur Leukocyte Esterase 1+ A, Urine RBC 20-50, Urine WBC 20-50, Urine Yeast 4+ 08/19/18 14:17: Specimen Source Right brachial, O2 % Room air, ABG pH 7.35, ABG pCO2 35.8, ABG pO2 83.4, ABG HCO3 19.3 L, ABG Total CO2 20.4 L, ABG O2 Saturation 96, ABG Base Excess -6.4 L, Reg Test Acceptable 08/20/18 06:10: WBC 9.0, RBC 3.06 L, Hgb 8.7 L, Hct 26.7 L, MCV 87.4, MCH 28.3, MCHC 32.4, RDW 15.7, Plt Count 230, MPV 7.2 L, Neut % (Auto) 79.8, Lymph % (Auto) 10.7, [place] % (Auto) 5.0, Eos % (Auto) 4.3, Baso % (Auto) 0.2, Neut # (Auto) 7.2, Lymph # (Auto) 1.0, [place] # (Auto) 0.5, Eos # (Auto) 0.4, Baso # (Auto) 0.0 08/20/18 06:10: Sodium 140, Potassium 3.8, Chloride 108 H, Carbon Dioxide 20 L, Anion Gap 15.8 H, BUN 44 H, Creatinine 2.28 H, Estimated Creat Clear 24, Estimated GFR 22 L, Est GFR ( Amer) 26 L, Glucose 95 D, Calcium 8.1 L Medical History: Reports:: Cancer (CERVICAL), Gastroesophageal Reflux Disease(GERD), Hyperlipidemia, Hypertension, Migraine, MRSA Denies:: Diabetes Mellitus Type 1, Diabetes Mellitus Type 2 Assessment and Plan (1) MRSA bacteremia Current visit: Yes Status: Acute Category: Medical Code(s): R78.81 - Bacteremia (2) Weakness generalized Current visit: Yes Status: Acute Category: Medical Code(s): R53.1 - Weakness (3) Post op infection Current visit: Yes Status: Acute Category: Medical Code(s): T81.40XA - Infection following a procedure, unspecified,
--- NOTE | 2018-08-20 11:26 | HMH.PHAINT ---
MEDICATION RECONCILIATION COMPLETED ON PATIENT USING RX BOTTLES AND EXTERNAL FILL HISTORY FROM PHARMACY. -ELIJAH BUSCH, SUSANAD
--- NOTE | 2018-08-20 11:45 | PC.NURSE ---
morning meds late, had to go get the home meds from house and pharmacy had to sticker them
--- NOTE | 2018-08-20 11:53 | PC.NURSE ---
DR JOSEPH IS ON THE FLOOR. I ADVISE HER OF POSITIVE BLOOD CULTURES (SAME LAST ADMISSION AND PT BEING TREATED WITH [facility] OUTPATIENT). ALSO ADVISED MD THAT I SPOKE WITH ELIJAH IN PHARMACY AND HE STATES HE RECOMMENDS NO CHANGES TO INPATIENT ATB'S AT THIS TIME (AT LEAST NOT UNTIL WE GET THE FINAL REPORT WITH THE SENSITIVITIES BACK). HAS NO FURTHER ORDERS.
--- NOTE | 2018-08-20 14:52 | PC.NURSE ---
dressing change performed, 1 inch iodaform soaked with betadine packed into wound. covered with 4x4 and estefanía wrap. wound bed pink and moist, no drainage noted. surrounding skin within normal limits. patient tolerated without incident. denies pain at this time.
[2018-08-20 16:00] VITALS: BP 134/75; PULSE 51; RESP 18; TEMP 36.4; O2SAT 97
[2018-08-20 19:59] VITALS: BP 121/63; PULSE 62; RESP 17; TEMP 36.4; O2SAT 98
[2018-08-21 04:00] VITALS: BP 118/64; PULSE 62; RESP 19; TEMP 36.4; O2SAT 99
[2018-08-21 05:00] VITALS: BMI 47.3
--- NOTE | 2018-08-21 05:03 | PC.NURSE ---
Pt recognized me from high school, detention memory intact. Slowly reacted to questions and repeated answers occasionally. Alert to all questions asked although she did appear fatigued. Slept most of the shift following 2100 med pass. Vital signs stable. Generalized edema remains. Jay wrap dressing intact on LLE, toes doug <3secs and pt reports feeling in all toes, pedal pulse palpable. IV infusing well with no problems, parekh cath patent and draining to gravity at bedside. Remained safe and stable during my care, will continue monitoring.
--- NOTE | 2018-08-21 07:15 | PC.NURSE ---
Shift report given to Jasmine Stone RN with no changes to previous note.
[2018-08-21 08:00] VITALS: BP 134/72; PULSE 76; RESP 16; TEMP 36.4; O2SAT 96
--- NOTE | 2018-08-21 11:02 | HMH.ACPN2 ---
Internal Medicine - PN: Subj *Date: 08/21/18 *Time: 11:04 Interval history: Patient did well overnight. Did not have any complaints today. The mentions that she got denied from [facility] for placement when evaluating in the ED on admission. Exam Vital signs and Labs for Last 24 Hours: Temp Pulse Resp BP Pulse Ox 97.5 F L 76 16 134/72 96 08/21/18 08:00 08/21/18 08:00 08/21/18 08:00 08/21/18 08:00 08/21/18 08:00 Laboratory Results - last 24 hr 08/19/18 14:10: Urine Color Yellow, Urine Appearance Clear, Urine pH 5.5, Ur Specific [place] >= 1.030, Urine Protein 2+, Urine Glucose (UA) Negative, Urine Ketones Negative, Urine Blood 3+, Urine Nitrate Negative, Urine Bilirubin Negative, Urine Urobilinogen 0.2, Ur Leukocyte Esterase 1+ A, Urine RBC 20-50, Urine WBC 20-50, Urine Yeast 4+ I & O for Last 24 hours: Intake & Output 08/18/18 08/19/18 08/20/18 08/21/18 11:59 11:59 11:59 11:59 Intake Total 690 / 690 2501 / 2501 Output Total 500 / 500 300 / 300 Balance 190 / 190 2201 / 2201 Weight 287 lb 14.779 oz 293 lb 3.437 oz Microbiology Reports for the Last 24 Hours: Microbiology 08/19/18 14:10 Urine,Clean Catch Urine Culture - Final Yeast 08/19/18 14:05 Blood Blood Culture - Preliminary Gram Positive Cocci 08/19/18 14:05 Blood Blood Culture - Preliminary Gram Positive Cocci - *Routine HEENT Exam Head: Present: normocephalic Eye: Present: EOMI, PERRL ENT: Present: mucous membranes moist Comments: Morbidly obese - *Routine Neck Exam Present: supple. Absent: lymphadenopathy - *Routine Respiratory Exam Present: CTA bilaterally - *Routine Cardiovascular Exam Present: RRR - *Routine Abdominal Exam Present: soft, normoactive bowel sounds. Absent: tenderness - *Routine Extremities Exam Absent: cyanosis, clubbing Comments: Left leg wrapped - *Routine Skin Exam Present: dry, warm. Absent: rash - *Routine Neurological Exam Present: alert, oriented X3 Assessment and Plan (1) MRSA bacteremia Current visit: Yes Status: Acute Category: Medical Code(s): R78.81 - Bacteremia (2) Weakness generalized Current visit: Yes Status: Acute Category: Medical Code(s): R53.1 - Weakness (3) Post op infection Current visit: Yes Status: Acute Category: Medical Code(s): T81.40XA - Infection following a procedure, unspecified, initial encounter (4) Anemia Current visit: Yes Status: Acute Category: Medical Code(s): D64.9 - Anemia, unspecified (5) Bacteriuria with pyuria Current visit: Yes Status: Acute Category: Medical Code(s): N39.0 - Urinary tract infection, site not specified (6) Chronic renal failure, stage 3 (moderate) Current visit: Yes Status: Chronic Category: Medical Code(s): N18.3 - Chronic kidney disease, stage 3 (moderate) (7) Status post knee replacement Current visit: Yes Status: Chronic Category: Surgical Code(s): Z96.659 - Presence of unspecified artificial knee joint (8) Status post tendon repair Current visit: Yes Status: Chronic Category: Surgical Code(s): Z98.890 - Other specified postprocedural states (9) Mobility impaired Current visit: No Status: Acute Category: Medical Code(s): Z74.09 - Other reduced mobility (10) Postoperative wound infection Current visit: No Status: Acute Category: Medical Code(s): T81.49XA - Infection following a procedure, other surgical site, initial encounter (11) Arthritis Current visit: No Status: Chronic Category: Medical Code(s): M19.90 - Unspecified osteoarthritis, unspecified site (12) Degenerative disc disease Current visit: No Status: Chronic Category: Medical (13) GERD (gastroesophageal reflux disease) Current visit: No Status: Chronic Category: Medical Code(s): K21.9 - Gastro-esophageal reflux disease witho
[2018-08-21 16:00] VITALS: BP 125/73; PULSE 75; RESP 18; TEMP 36.5; O2SAT 91
[2018-08-21 19:54] VITALS: BP 137/78; PULSE 87; RESP 17; TEMP 36.9; O2SAT 98
[2018-08-22 03:54] VITALS: BP 94/52; PULSE 55; RESP 17; TEMP 37.1; O2SAT 92
[2018-08-22 05:18] VITALS: BMI 47.7
--- NOTE | 2018-08-22 05:29 | PC.NURSE ---
No changes this shift from last night's shift. Pt remains a 2 person assist, would not attempt to hold water glass, and ask me to place her pills in her mouth one at a time. Encouraged movement as to what she could do to keep up her strength, pt reported, I'm just so tired. Discussed possibly not taking pain pill last night but pt wanted to take it rating her pain a 3 out of 10. Some repetitive speech, however could answer all orientation questions. Slept most of the shift with vital signs wnl, afebrile, pt appeared to be resting well with rhythmic and unlabored breathing. Left leg remains wrapped with toes blanchable and <3sec cap refill, pedal pulses equal, generalized edema remains unchanged. Pt remained safe and stable during my care, will continue monitoring.
--- NOTE | 2018-08-22 07:39 | PC.NURSE ---
Shift report given to Jasmine Douglas RN with no changes from previous note.
[2018-08-22 08:00] VITALS: BP 116/72; PULSE 85; RESP 22; TEMP 37.7; O2SAT 96
[2018-08-22 09:42] LABS: Basophils % 0.1 % (0.1-2.0); Eosinophils # 0.5 K/mm3 (0.0-0.4); Eosinophils % 5.2 % (0.1-12.0); Hematocrit 25.4 % (37.0-47.0); Hemoglobin 8.1 g/dL (12.2-16.2); Lymphocytes # 1.1 K/mm3 (0.7-4.5); Lymphocytes % 11.4 % (10-50); Mean Corpuscular Hemoglobin 28.2 pg (27.0-31.2); Mean Corpuscular Volume 88.3 fl (81-99); Mean Platelet Volume 7.6 fl (7.4-10.4); Monocytes # 0.7 K/mm3 (0.1-1.0); Monocytes % 6.9 % (1.7-9.3); Neutrophils # 7.2 K/mm3 (1.8-7.8); Neutrophils % 76.4 % (37.0-80.0); Platelet Count 211 K/mm3 (142-424); Red Blood Count 2.87 M/mm3 (4.20-5.40); Red Cell Distribution Width 16.3 % (11.5-17.5); White Blood Count 9.4 K/mm3 (4.8-10.8)
--- NOTE | 2018-08-22 09:46 | HMH.ACPN2 ---
<Dahlia Legih - Last Filed: 08/22/18 09:46> Internal Medicine - PN: Subj *Date: 08/22/18 *Time: 09:46 Interval history: Her : Patient has not doing as well today. He stated that she regressed yesterday and could tell that she was not doing well. She has been more lethargic and will not eat. Patient has been seen by Dr. Kendall and she will receive 500 cc fluid bolus. IV fluid rate has been increased to 125 NR. Laboratory Tests 08/20/18 06:10 Sodium 140 Potassium 3.8 Chloride 108 H Carbon Dioxide 20 L Anion Gap 15.8 H BUN 44 H Creatinine 2.28 H Patient denies pain. She has difficulty staying awake to answer questions. She has a low-grade fever this a.m. Urine culture reveals Enterococcus faecalis sensitive to the vancomycin which she is on. Exam Vital signs and Labs for Last 24 Hours: Temp Pulse Resp BP Pulse Ox 99.9 F H 85 22 116/72 96 08/22/18 08:00 08/22/18 08:00 08/22/18 08:00 08/22/18 08:00 08/22/18 08:00 Laboratory Results - last 24 hr 08/22/18 09:30: WBC 9.4, RBC 2.87 L, Hgb 8.1 L, Hct 25.4 L, MCV 88.3, MCH 28.2, MCHC 32.0, RDW 16.3, Plt Count 211, MPV 7.6, Neut % (Auto) 76.4, Lymph % (Auto) 11.4, [place] % (Auto) 6.9, Eos % (Auto) 5.2, Baso % (Auto) 0.1, Neut # (Auto) 7.2, Lymph # (Auto) 1.1, [place] # (Auto) 0.7, Eos # (Auto) 0.5 H, Baso # (Auto) 0.0 I & O for Last 24 hours: Intake & Output 08/19/18 08/20/18 08/21/18 08/22/18 11:59 11:59 11:59 11:59 Intake Total 690 / 690 2501 / 2501 2125 / 2125 Output Total 500 / 500 300 / 300 575 / 575 Balance 190 / 190 2201 / 2201 1550 / 1550 Weight 287 lb 14.779 oz 293 lb 3.437 oz 295 lb 13.765 oz Microbiology Reports for the Last 24 Hours: Microbiology 08/19/18 14:05 Blood Blood Culture - Preliminary Staph hominis ssp hominis 08/19/18 14:05 Blood Blood Culture - Preliminary Enterococcus faecalis 08/19/18 14:10 Urine,Clean Catch Urine Culture - Final Yeast - Constitutional no acute distress Comments: Lethargic - *Routine Respiratory Exam Present: CTA bilaterally - *Routine Cardiovascular Exam Present: RRR, murmur - *Routine Abdominal Exam Present: soft, normoactive bowel sounds. Absent: tenderness - *Routine Extremities Exam Comments: Left lower extremity and half cast. Dressing on left upper leg wound clean and dry. - *Routine Skin Exam Comments: Face is flushed - *Routine Neurological Exam Lethargic Assessment and Plan (1) MRSA bacteremia Current visit: Yes Status: Acute Category: Medical Code(s): R78.81 - Bacteremia (2) Weakness generalized Current visit: Yes Status: Acute Category: Medical Code(s): R53.1 - Weakness (3) Post op infection Current visit: Yes Status: Acute Category: Medical Code(s): T81.40XA - Infection following a procedure, unspecified, initial encounter (4) Anemia Current visit: Yes Status: Acute Category: Medical Code(s): D64.9 - Anemia, unspecified (5) Bacteriuria with pyuria Current visit: Yes Status: Acute Category: Medical Code(s): N39.0 - Urinary tract infection, site not specified (6) Chronic renal failure, stage 3 (moderate) Current visit: Yes Status: Chronic Category: Medical Code(s): N18.3 - Chronic kidney disease, stage 3 (moderate) (7) Status post knee replacement Current visit: Yes Status: Chronic Category: Surgical Code(s): Z96.659 - Presence of unspecified artificial knee joint (8) Status post tendon repair Current visit: Yes Status: Chronic Category: Surgical Code(s): Z98.890 - Other specified postprocedural states (9) Mobility impaired Current visit: No Status: Acute Category: Medical Code(s): Z74.09 - Other reduced mobility (10) Postoperative wound infection Current visit: No Status: Acute Category: Medical Code(s): T81.49XA - Infection following a
--- NOTE | 2018-08-22 09:50 | P.PN_ITS ---
<Dahlia Leigh - Last Filed: 08/22/18 09:46> Internal Medicine - PN: Subj *Date: 08/22/18 *Time: 09:46 Interval history: Her : Patient has not doing as well today. He stated that she regressed yesterday and could tell that she was not doing well. She has been more lethargic and will not eat. Patient has been seen by Dr. Kenadll and she will receive 500 cc fluid bolus. IV fluid rate has been increased to 125 NR. Laboratory Tests 08/20/18 06:10 Sodium 140 Potassium 3.8 Chloride 108 H Carbon Dioxide 20 L Anion Gap 15.8 H BUN 44 H Creatinine 2.28 H Patient denies pain. She has difficulty staying awake to answer questions. She has a low-grade fever this a.m. Urine culture reveals Enterococcus faecalis sensitive to the vancomycin which she is on. Exam Vital signs and Labs for Last 24 Hours: Temp Pulse Resp BP Pulse Ox 99.9 F H 85 22 116/72 96 08/22/18 08:00 08/22/18 08:00 08/22/18 08:00 08/22/18 08:00 08/22/18 08:00 Laboratory Results - last 24 hr 08/22/18 09:30: WBC 9.4, RBC 2.87 L, Hgb 8.1 L, Hct 25.4 L, MCV 88.3, MCH 28.2, MCHC 32.0, RDW 16.3, Plt Count 211, MPV 7.6, Neut % (Auto) 76.4, Lymph % (Auto) 11.4, [place] % (Auto) 6.9, Eos % (Auto) 5.2, Baso % (Auto) 0.1, Neut # (Auto) 7.2, Lymph # (Auto) 1.1, [place] # (Auto) 0.7, Eos # (Auto) 0.5 H, Baso # (Auto) 0.0 I & O for Last 24 hours: Intake & Output 08/19/18 08/20/18 08/21/18 08/22/18 11:59 11:59 11:59 11:59 Intake Total 690 / 690 2501 / 2501 2125 / 2125 Output Total 500 / 500 300 / 300 575 / 575 Balance 190 / 190 2201 / 2201 1550 / 1550 Weight 287 lb 14.779 oz 293 lb 3.437 oz 295 lb 13.765 oz Microbiology Reports for the Last 24 Hours: Microbiology 08/19/18 14:05 Blood Blood Culture - Preliminary Staph hominis ssp hominis 08/19/18 14:05 Blood Blood Culture - Preliminary Enterococcus faecalis 08/19/18 14:10 Urine,Clean Catch Urine Culture - Final Yeast - Constitutional no acute distress Comments: Lethargic - *Routine Respiratory Exam Present: CTA bilaterally - *Routine Cardiovascular Exam Present: RRR, murmur - *Routine Abdominal Exam Present: soft, normoactive bowel sounds. Absent: tenderness - *Routine Extremities Exam Comments: Left lower extremity and half cast. Dressing on left upper leg wound clean and dry. - *Routine Skin Exam Comments: Face is flushed - *Routine Neurological Exam Lethargic Assessment and Plan (1) MRSA bacteremia Current visit: Yes Status: Acute Category: Medical Code(s): R78.81 - Bacteremia (2) Weakness generalized Current visit: Yes Status: Acute Category: Medical Code(s): R53.1 - Weakness (3) Post op infection Current visit: Yes Status: Acute Category: Medical Code(s): T81.40XA - Infection following a procedure, unspecified, initial encounter (4) Anemia Current visit: Yes Status: Acute Category: Medical Code(s): D64.9 - Anemia, unspecified (5) Bacteriuria with pyuria Current visit: Yes Status: Acute Category: Medical Code(s): N39.0 - Urinary tract infection, site not specified (6) C
[2018-08-22 09:55] LABS: Alanine Aminotransferase 11 U/L (12-78); Albumin Level 1.4 gm/dL (3.4-5.0); Albumin/Globulin Ratio 0.4 (1.1-1.8); Alkaline Phosphatase 78 U/L (46-116); Aspartate Amino Transferase 8 U/L (15-37); Bilirubin,Total 0.3 mg/dL (0.2-1.0); Blood Urea Nitrogen 38 mg/dL (7-18); Calcium 7.8 mg/dL (8.5-10.1); Carbon Dioxide 19 mmol/L (21.0-32.0); Chloride 108 mmol/L (98-107); Creatinine Clearance Estimated 20 mL/min (50-200); Creatinine,Serum 2.66 mg/dL (0.55-1.02); Estimated Glomerular Filt Rate 18 ml/min (>60); GFR (African American) 22 ML/MIN (>60); Globulin 3.8 gm/dl (1.3-3.2); Glucose 109 mg/dL (74-106); Sodium 138 mmol/L (136-145); Total Protein,Serum 5.2 gm/dL (6.4-8.2)
[2018-08-22 10:00] LABS: Lactic Acid 0.8 mmol/L (0.4-2.0)
[2018-08-22 10:11] LABS: ABG Base Excess -6.9 mmol/L (-2.4-2.3); ABG HCO3 18.6 mmhg (22.0-26.0); ABG Oxygen Saturation 96 % (90-100); ABG PCO2 33.7 mmhg (35.0-45.0); ABG PH 7.36 mmol/L (7.35-7.45); ABG PO2 84.3 mmhg (80-100); ABG TCO2 19.6 mmhg (23-27)
[2018-08-22 10:13] LABS: Oxygen 21 %
[2018-08-22 10:14] LABS: Allen's Test Acceptable; Source Right Radial
--- NOTE | 2018-08-22 10:36 | HMH.PHACONS ---
- Pharmacy Consult Date: 08/22/18 Time: 10:36 Referring provider: DR. SHEPARD Reason for Consult:: BASED ON VANCOMYCIN TROUGH LEVEL, RECOMMEND HOLDING DOSE TODAY AND WILL OBTAIN ANOTHER TROUGH LEVEL TOMORROW MORNING. Allergies and ADEs:: Allergies Allergy/AdvReac Type Severity Reaction Status Date / Time amoxicillin [From Augmentin] Allergy Severe Rash Verified 08/10/18 18:40 clavulanic acid Allergy Severe Rash Verified 08/10/18 18:40 [From Augmentin] clarithromycin [From BIAXIN] Allergy Unknown Verified 03/06/18 22:23 Home Medications:: Home Medications Medication Instructions Recorded Confirmed Type Baclofen [Lioresal 10mg tablet] 10 mg PO TIDP PRN 03/06/18 08/20/18 History Celecoxib 200 mg PO DAILY 03/06/18 08/19/18 History Metoclopramide HCl [Metoclopramide 10 mg PO BID 03/06/18 08/19/18 History 10mg Tablet] Metoprolol Tartrate [Lopressor 50 mg PO DAILY 03/06/18 08/19/18 History 50mg tablet] Morphine Sulfate [Morphine Sulfate 30 mg PO DIRECTED 03/06/18 08/19/18 History ER 30mg Cap] Omeprazole [Omeprazole 20mg 20 mg PO DAILY 03/06/18 08/19/18 History Capsule] Simvastatin 40 mg PO HS 03/06/18 08/19/18 History Topiramate 25 mg PO BID 03/06/18 08/19/18 History Oxybutynin Chloride [Ditropan 5mg 5 mg PO BID 08/11/18 08/19/18 History tablet] Gabapentin [Gabapentin 300mg Cap] 300 mg PO BID #60 cap 08/16/18 08/19/18 Rx Vancomycin HCl [Vancomycin 1000mg 2,250 mg IV Q36H 08/19/18 08/19/18 History Vial] Height: 1.68 m Weight: 134.2 kg Laboratory Results:: Laboratory Results - last 24 hr 08/22/18 08:09: Specimen Source Right radial, O2 % 21, ABG pH 7.36, ABG pCO2 33.7 L, ABG pO2 84.3, ABG HCO3 18.6 L, ABG Total CO2 19.6 L, ABG O2 Saturation 96, ABG Base Excess -6.9 L, Reg Test Acceptable 08/22/18 09:30: Vancomycin Trough 38.0 H 08/22/18 09:30: WBC 9.4, RBC 2.87 L, Hgb 8.1 L, Hct 25.4 L, MCV 88.3, MCH 28.2, MCHC 32.0, RDW 16.3, Plt Count 211, MPV 7.6, Neut % (Auto) 76.4, Lymph % (Auto) 11.4, [place] % (Auto) 6.9, Eos % (Auto) 5.2, Baso % (Auto) 0.1, Neut # (Auto) 7.2, Lymph # (Auto) 1.1, [place] # (Auto) 0.7, Eos # (Auto) 0.5 H, Baso # (Auto) 0.0 08/22/18 09:30: Sodium 138, Potassium 4.0, Chloride 108 H, Carbon Dioxide 19 L, Anion Gap 15.0, BUN 38 H, Creatinine 2.66 H, Estimated Creat Clear 20, Estimated GFR 18 L*, Est GFR ( Amer) 22 L, Glucose 109 H, Calcium 7.8 L, Total Bilirubin 0.3, AST 8 L D, ALT 11 L D, Alkaline Phosphatase 78, Total Protein 5.2 L, Albumin 1.4 L, Globulin 3.8 H, Albumin/Globulin Ratio 0.4 L 08/22/18 09:30: Lactate 0.8 Medical History: Reports:: Cancer (CERVICAL), Gastroesophageal Reflux Disease(GERD), Hyperlipidemia, Hypertension, Migraine, MRSA Denies:: Diabetes Mellitus Type 1, Diabetes Mellitus Type 2 Assessment and Plan (1) MRSA bacteremia Current visit: Yes Status: Acute Category: Medical Code(s): R78.81 - Bacteremia (2) Weakness generalized Current visit: Yes Status: Acute Category: Medical Code(s): R53.1 - Weakness (3) Post op infection Current visit: Yes Status: Acute Category: Medical Code(s): T81.40XA - Infection following a procedure, unspecified, initial encounter (4) Anemia Current visit: Yes Status: Acute Category: Medical Code(s): D64.9 - Anemia, unspecified (5) Bacteriuria with pyuria Current visit: Yes Status: Acute Category: Medical Code(s): N39.0 - Urinary tract infection, site not specified (6) Chronic renal failure, stage 3 (moderate) Current visit: Yes Status: Chronic Category: Medical Code(s): N18.3 - Chronic kidney disease, stage 3 (moderate) (7) Status post knee replacement Current visit: Yes Status: Chronic Category: Surgical Code(s): Z96.659 - Presence of unspecified artificial knee joint (8) Status post tendon repair Current visit: Yes Status: Chronic Category: Surgical Code(s): Z98.890 - Other specified postprocedural states (9) Mobility impaired Current v
--- NOTE | 2018-08-22 11:47 | SW/DCPLANNER ---
SPOKE WITH SPOUSE OF THIS PATIENT AND HE HAS AGREED TO ACCEPT THE BED AT [place], SHE IS A COMMERICAL INSURANCE AND WILL HAVE QUITE A BIT OF OUT OF POCKET BUT HE IS PREPARED TO PAY IT AND I HAVE CALLED [employer] AND TOLD HER THAT SHE IS NOT READY TODAY BUT AFTER DR SHEPARD MAKES ROUNDS [facility]MR[facility] WE WOULD HAVE A BETTER IDEA WHEN SHE WILL BE READY SO SHE CAN START THE PRECERT PROCESS...
[2018-08-22 15:05] VITALS: BMI 47.7
--- NOTE | 2018-08-22 15:44 | DIET.NUTRFU ---
Nutritional assessment completed by student holger has been under my supervision. Patient diet is liberalized to cardiac only as patient is not a diabetic. PO intakes remain poor and albumin is 1.4. Will supplement diet with Ensure bid and Breeze one a day.
[2018-08-22 16:00] VITALS: BP 151/65; PULSE 73; RESP 18; TEMP 36.7; O2SAT 96
--- NOTE | 2018-08-22 17:11 | PC.NURSE ---
DRESSING CHANGED AND WOUND REPACKED. WOUND PACKED WITH BETADINE SOAKED IODAFORM PACKING STRIPS. REINFORCED WITH 4X4 AND ABD. PAD.
--- NOTE | 2018-08-22 17:13 | PC.NURSE ---
PT REMAINS LETHARGIC T/O SHIFT. THIRD SPACING EDEMA NOTES. PICC DRESSING IS CDI. REAL CATHETER IN PLACE NO S/S OF INFECTION. VSS. CALL LIGHT IN PLACE. REMAINED IN CONTACT ISOLATION. WILL CONTINUE TO MONITOR.
--- NOTE | 2018-08-22 19:18 | PC.NURSE ---
report given to bettye
[2018-08-22 20:00] VITALS: BP 152/83; PULSE 90; RESP 20; TEMP 36.6; O2SAT 94
[2018-08-23] VITALS (26 sets, daily range): BP systolic 97–150; BP diastolic 53–72; PULSE 54–88; RESP 16–20; TEMP 36.2–37.2; O2SAT 93–100; BMI 50.9
--- NOTE | 2018-08-23 05:57 | PC.NURSE ---
0600 courtesy check; pt asleep on left side
[2018-08-23 07:36] LABS: Basophils % 0.1 % (0.1-2.0); Eosinophils # 0.4 K/mm3 (0.0-0.4); Eosinophils % 4.3 % (0.1-12.0); Lymphocytes % 10.5 % (10-50); Mean Corpuscular HGB Conc 31.4 g/dL (31.8-35.4); Mean Corpuscular Hemoglobin 28.2 pg (27.0-31.2); Mean Corpuscular Volume 89.7 fl (81-99); Mean Platelet Volume 7.5 fl (7.4-10.4); Monocytes # 0.6 K/mm3 (0.1-1.0); Neutrophils # 7.5 K/mm3 (1.8-7.8); Neutrophils % 79.1 % (37.0-80.0); Platelet Count 194 K/mm3 (142-424); Red Blood Count 2.68 M/mm3 (4.20-5.40); Red Cell Distribution Width 16.3 % (11.5-17.5); White Blood Count 9.5 K/mm3 (4.8-10.8)
[2018-08-23 07:45] LABS: Hemoglobin 7.6 g/dL (12.2-16.2)
[2018-08-23 08:04] LABS: Anion Gap 15.1 mEq/L (5-15); Blood Urea Nitrogen 38 mg/dL (7-18); Calcium 7.4 mg/dL (8.5-10.1); Carbon Dioxide 19 mmol/L (21.0-32.0); Chloride 110 mmol/L (98-107); Creatinine Clearance Estimated 20 mL/min (50-200); Estimated Glomerular Filt Rate 19 ml/min (>60); Ferritin 113 ng/mL (8-388); GFR (African American) 22 ML/MIN (>60); Glucose 101 mg/dL (74-106); Potassium 4.1 mmoL/L (3.5-5.1); Sodium 140 mmol/L (136-145)
--- NOTE | 2018-08-23 08:12 | HMH.ACPN2 ---
<Dahlia Leigh - Last Filed: 08/23/18 08:12> Internal Medicine - PN: Subj *Date: 08/23/18 *Time: 08:12 Interval history: Laboratory Tests 08/23/18 07:08 WBC 9.5 RBC 2.68 L Hgb 7.6 L* States she feels better this morning. She did sleep last night and most of the day yesterday. She denies chest pain and shortness of breath, nausea and vomiting. She mostly drank fluids yesterday. Urinary output has increased somewhat. Noted weight gain. Exam Vital signs and Labs for Last 24 Hours: Temp Pulse Resp BP Pulse Ox 97.8 F 88 18 115/61 98 08/23/18 04:00 08/23/18 04:00 08/23/18 04:00 08/23/18 04:00 08/23/18 04:00 Laboratory Results - last 24 hr 08/22/18 08:09: Specimen Source Right radial, O2 % 21, ABG pH 7.36, ABG pCO2 33.7 L, ABG pO2 84.3, ABG HCO3 18.6 L, ABG Total CO2 19.6 L, ABG O2 Saturation 96, ABG Base Excess -6.9 L, Reg Test Acceptable 08/22/18 09:30: Vancomycin Trough 38.0 H 08/22/18 09:30: WBC 9.4, RBC 2.87 L, Hgb 8.1 L, Hct 25.4 L, MCV 88.3, MCH 28.2, MCHC 32.0, RDW 16.3, Plt Count 211, MPV 7.6, Neut % (Auto) 76.4, Lymph % (Auto) 11.4, [place] % (Auto) 6.9, Eos % (Auto) 5.2, Baso % (Auto) 0.1, Neut # (Auto) 7.2, Lymph # (Auto) 1.1, [place] # (Auto) 0.7, Eos # (Auto) 0.5 H, Baso # (Auto) 0.0 08/22/18 09:30: Sodium 138, Potassium 4.0, Chloride 108 H, Carbon Dioxide 19 L, Anion Gap 15.0, BUN 38 H, Creatinine 2.66 H, Estimated Creat Clear 20, Estimated GFR 18 L*, Est GFR ( Amer) 22 L, Glucose 109 H, Calcium 7.8 L, Total Bilirubin 0.3, AST 8 L D, ALT 11 L D, Alkaline Phosphatase 78, Total Protein 5.2 L, Albumin 1.4 L, Globulin 3.8 H, Albumin/Globulin Ratio 0.4 L 08/22/18 09:30: Lactate 0.8 08/23/18 07:08: WBC 9.5, RBC 2.68 L, Hgb 7.6 L*, Hct 24.0 L, MCV 89.7, MCH 28.2, MCHC 31.4 L, RDW 16.3, Plt Count 194, MPV 7.5, Neut % (Auto) 79.1, Lymph % (Auto) 10.5, [place] % (Auto) 6.0, Eos % (Auto) 4.3, Baso % (Auto) 0.1, Neut # (Auto) 7.5, Lymph # (Auto) 1.0, [place] # (Auto) 0.6, Eos # (Auto) 0.4, Baso # (Auto) 0.0 08/23/18 07:08: Sodium 140, Potassium 4.1, Chloride 110 H, Carbon Dioxide 19 L, Anion Gap 15.1 H, BUN 38 H, Creatinine 2.60 H, Estimated Creat Clear 20, Estimated GFR 19 L*, Est GFR ( Amer) 22 L, Glucose 101, Calcium 7.4 L, Ferritin 113 I & O for Last 24 hours: Intake & Output 08/20/18 08/21/18 08/22/18 08/23/18 11:59 11:59 11:59 11:59 Intake Total 690 / 690 2501 / 2501 2125 / 2125 2360 / 2360 Output Total 500 / 500 300 / 300 575 / 575 800 / 800 Balance 190 / 190 2201 / 2201 1550 / 1550 1560 / 1560 Weight 287 lb 14.779 oz 293 lb 3.437 oz 295 lb 13.765 oz 315 lb 7.704 oz Microbiology Reports for the Last 24 Hours: Microbiology 08/19/18 14:05 Blood Blood Culture - Preliminary Enterococcus faecalis Staph hominis ssp hominis 08/19/18 14:05 Blood Blood Culture - Preliminary Staph hominis ssp hominis - Constitutional Comments: Easy to awaken today. In no acute distress. She set up in the bed for long assessment. - *Routine Respiratory Exam Present: CTA bilaterally (Anteriorly and posteriorly) - *Routine Cardiovascular Exam Present: RRR - *Routine Abdominal Exam Present: soft, normoactive bowel sounds. Absent: tenderness - *Routine Extremities Exam Absent: edema (Left leg with past splint on. Wound of left thigh with clean dry dressing.) - *Routine Neurological Exam Slow with verbal responses. Alert and oriented. Assessment and Plan (1) Volume depletion Current visit: Yes Status: Acute Category: Medical Code(s): E86.9 - Volume depletion, unspecified (2) Hypotension Current visit: Yes Status: Acute Category: Medical Code(s): I95.9 - Hypotension, unspecified (3) Enterococcus UTI Current visit: Yes Status: Acute Category: Medical Code(s): N39.0 - Urinary tract infection, site not specified; B95.2 - Enterococcus as the cause of diseases classified els
--- NOTE | 2018-08-23 08:15 | P.PN_ITS ---
<Dahlia Leigh - Last Filed: 08/23/18 08:12> Internal Medicine - PN: Subj *Date: 08/23/18 *Time: 08:12 Interval history: Laboratory Tests 08/23/18 07:08 WBC 9.5 RBC 2.68 L Hgb 7.6 L* States she feels better this morning. She did sleep last night and most of the day yesterday. She denies chest pain and shortness of breath, nausea and vomiting. She mostly drank fluids yesterday. Urinary output has increased somewhat. Noted weight gain. Exam Vital signs and Labs for Last 24 Hours: Temp Pulse Resp BP Pulse Ox 97.8 F 88 18 115/61 98 08/23/18 04:00 08/23/18 04:00 08/23/18 04:00 08/23/18 04:00 08/23/18 04:00 Laboratory Results - last 24 hr 08/22/18 08:09: Specimen Source Right radial, O2 % 21, ABG pH 7.36, ABG pCO2 33.7 L, ABG pO2 84.3, ABG HCO3 18.6 L, ABG Total CO2 19.6 L, ABG O2 Saturation 96, ABG Base Excess -6.9 L, Reg Test Acceptable 08/22/18 09:30: Vancomycin Trough 38.0 H 08/22/18 09:30: WBC 9.4, RBC 2.87 L, Hgb 8.1 L, Hct 25.4 L, MCV 88.3, MCH 28.2, MCHC 32.0, RDW 16.3, Plt Count 211, MPV 7.6, Neut % (Auto) 76.4, Lymph % (Auto) 11.4, [place] % (Auto) 6.9, Eos % (Auto) 5.2, Baso % (Auto) 0.1, Neut # (Auto) 7.2, Lymph # (Auto) 1.1, [place] # (Auto) 0.7, Eos # (Auto) 0.5 H, Baso # (Auto) 0.0 08/22/18 09:30: Sodium 138, Potassium 4.0, Chloride 108 H, Carbon Dioxide 19 L, Anion Gap 15.0, BUN 38 H, Creatinine 2.66 H, Estimated Creat Clear 20, Estimated GFR 18 L*, Est GFR ( Amer) 22 L, Glucose 109 H, Calcium 7.8 L, Total Bilirubin 0.3, AST 8 L D, ALT 11 L D, Alkaline Phosphatase 78, Total Protein 5.2 L, Albumin 1.4 L, Globulin 3.8 H, Albumin/Globulin Ratio 0.4 L 08/22/18 09:30: Lactate 0.8 08/23/18 07:08: WBC 9.5, RBC 2.68 L, Hgb 7.6 L*, Hct 24.0 L, MCV 89.7, MCH 28.2, MCHC 31.4 L, RDW 16.3, Plt Count 194, MPV 7.5, Neut % (Auto) 79.1, Lymph % (Auto) 10.5, [place] % (Auto) 6.0, Eos % (Auto) 4.3, Baso % (Auto) 0.1, Neut # (Auto) 7.5, Lymph # (Auto) 1.0, [place] # (Auto) 0.6, Eos # (Auto) 0.4, Baso # (Auto) 0.0 08/23/18 07:08: Sodium 140, Potassium 4.1, Chloride 110 H, Carbon Dioxide 19 L, Anion Gap 15.1 H, BUN 38 H, Creatinine 2.60 H, Estimated Creat Clear 20, Estimated GFR 19 L*, Est GFR ( Amer) 22 L, Glucose 101, Calcium 7.4 L, Ferritin 113 I & O for Last 24 hours: Intake & Output 08/20/18 08/21/18 08/22/18 08/23/18 11:59 11:59 11:59 11:59 Intake Total 690 / 690 2501 / 2501 2125 / 2125 2360 / 2360 Output Total 500 / 500 300 / 300 575 / 575 800 / 800 Balance 190 / 190 2201 / 2201 1550 / 1550 1560 / 1560 Weight 287 lb 14.779 oz 293 lb 3.437 oz 295 lb 13.765 oz 315 lb 7.704 oz Microbiology Reports for the Last 24 Hours: Microbiology 08/19/18 14:05 Blood Blood Culture - Preliminary Enterococcus faecalis Staph hominis ssp hominis 08/19/18 14:05 Blood Blood Culture - Preliminary Staph hominis ssp hominis - Constitutional Comments: Easy to awaken today. In no acute distress. She set up in the bed for long assessment. - *Routine Respiratory Exam Present: CTA bilaterally (Anteriorly and posteriorly) - *Routine Cardiovascular Exam Present: RRR - *Routine Abdominal Exam Present: soft, normoactive bowel sounds. Absent: tenderness - *Routine Extremities Exam Absent: edema (L
[2018-08-23 09:53] LABS: Vancomycin,Trough 32.9 mcg/ml (10.0-20.0)
--- NOTE | 2018-08-23 10:01 | HMH.PHACONS ---
- Pharmacy Consult Date: 08/23/18 Time: 10:01 Referring provider: DR. SHEPARD Reason for Consult:: VANCOMYCIN TROUGH LEVEL Allergies and ADEs:: Allergies Allergy/AdvReac Type Severity Reaction Status Date / Time amoxicillin [From Augmentin] Allergy Severe Rash Verified 08/10/18 18:40 clavulanic acid Allergy Severe Rash Verified 08/10/18 18:40 [From Augmentin] clarithromycin [From BIAXIN] Allergy Unknown Verified 03/06/18 22:23 Home Medications:: Home Medications Medication Instructions Recorded Confirmed Type Baclofen [Lioresal 10mg tablet] 10 mg PO TIDP PRN 03/06/18 08/20/18 History Celecoxib 200 mg PO DAILY 03/06/18 08/19/18 History Metoclopramide HCl [Metoclopramide 10 mg PO BID 03/06/18 08/19/18 History 10mg Tablet] Metoprolol Tartrate [Lopressor 50 mg PO DAILY 03/06/18 08/19/18 History 50mg tablet] Morphine Sulfate [Morphine Sulfate 30 mg PO DIRECTED 03/06/18 08/19/18 History ER 30mg Cap] Omeprazole [Omeprazole 20mg 20 mg PO DAILY 03/06/18 08/19/18 History Capsule] Simvastatin 40 mg PO HS 03/06/18 08/19/18 History Topiramate 25 mg PO BID 03/06/18 08/19/18 History Oxybutynin Chloride [Ditropan 5mg 5 mg PO BID 08/11/18 08/19/18 History tablet] Gabapentin [Gabapentin 300mg Cap] 300 mg PO BID #60 cap 08/16/18 08/19/18 Rx Vancomycin HCl [Vancomycin 1000mg 2,250 mg IV Q36H 08/19/18 08/19/18 History Vial] Height: 1.68 m Weight: 143.1 kg Laboratory Results:: Laboratory Results - last 24 hr 08/22/18 08:09: Specimen Source Right radial, O2 % 21, ABG pH 7.36, ABG pCO2 33.7 L, ABG pO2 84.3, ABG HCO3 18.6 L, ABG Total CO2 19.6 L, ABG O2 Saturation 96, ABG Base Excess -6.9 L, Reg Test Acceptable 08/22/18 09:30: Vancomycin Trough 38.0 H 08/22/18 09:30: Lactate 0.8 08/23/18 07:08: WBC 9.5, RBC 2.68 L, Hgb 7.6 L*, Hct 24.0 L, MCV 89.7, MCH 28.2, MCHC 31.4 L, RDW 16.3, Plt Count 194, MPV 7.5, Neut % (Auto) 79.1, Lymph % (Auto) 10.5, [place] % (Auto) 6.0, Eos % (Auto) 4.3, Baso % (Auto) 0.1, Neut # (Auto) 7.5, Lymph # (Auto) 1.0, [place] # (Auto) 0.6, Eos # (Auto) 0.4, Baso # (Auto) 0.0 08/23/18 07:08: Sodium 140, Potassium 4.1, Chloride 110 H, Carbon Dioxide 19 L, Anion Gap 15.1 H, BUN 38 H, Creatinine 2.60 H, Estimated Creat Clear 20, Estimated GFR 19 L*, Est GFR ( Amer) 22 L, Glucose 101, Calcium 7.4 L, Ferritin 113 08/23/18 09:20: Vancomycin Trough 32.9 H 08/23/18 09:20: Crossmatch (AHG) See Detail Medical History: Reports:: Cancer (CERVICAL), Gastroesophageal Reflux Disease(GERD), Hyperlipidemia, Hypertension, Migraine, MRSA Denies:: Diabetes Mellitus Type 1, Diabetes Mellitus Type 2 Assessment and Plan (1) Volume depletion Current visit: Yes Status: Acute Category: Medical Code(s): E86.9 - Volume depletion, unspecified (2) Hypotension Current visit: Yes Status: Acute Category: Medical Code(s): I95.9 - Hypotension, unspecified (3) Enterococcus UTI Current visit: Yes Status: Acute Category: Medical Code(s): N39.0 - Urinary tract infection, site not specified; B95.2 - Enterococcus as the cause of diseases classified elsewhere (4) MRSA bacteremia Current visit: Yes Status: Acute Category: Medical Code(s): R78.81 - Bacteremia (5) Weakness generalized Current visit: Yes Status: Acute Category: Medical Code(s): R53.1 - Weakness (6) Post op infection Current visit: Yes Status: Acute Category: Medical Code(s): T81.40XA - Infection following a procedure, unspecified, initial encounter (7) Anemia Current visit: Yes Status: Acute Category: Medical Code(s): D64.9 - Anemia, unspecified (8) Chronic renal failure, stage 3 (moderate) Current visit: Yes Status: Chronic Category: Medical Code(s): N18.3 - Chronic kidney disease, stage 3 (moderate) (9) Status post knee replacement Current visit: Yes Status: Chronic Category: Surgical Code(s): Z96.659 - Presence of unspecified artificial knee joint (10) Status post
--- NOTE | 2018-08-23 10:26 | HMH.ACPN ---
Internal Medicine - PN: Subj *Date: 08/23/18 *Time: 10:26 Exam Vital signs and Labs for Last 24 Hours: Temp Pulse Resp BP Pulse Ox 99.0 F 85 18 150/72 H 93 L 08/23/18 08:00 08/23/18 08:00 08/23/18 08:00 08/23/18 08:00 08/23/18 08:00 Laboratory Results - last 24 hr 08/22/18 09:30: Vancomycin Trough 38.0 H 08/23/18 07:08: WBC 9.5, RBC 2.68 L, Hgb 7.6 L*, Hct 24.0 L, MCV 89.7, MCH 28.2, MCHC 31.4 L, RDW 16.3, Plt Count 194, MPV 7.5, Neut % (Auto) 79.1, Lymph % (Auto) 10.5, [place] % (Auto) 6.0, Eos % (Auto) 4.3, Baso % (Auto) 0.1, Neut # (Auto) 7.5, Lymph # (Auto) 1.0, [place] # (Auto) 0.6, Eos # (Auto) 0.4, Baso # (Auto) 0.0 08/23/18 07:08: Sodium 140, Potassium 4.1, Chloride 110 H, Carbon Dioxide 19 L, Anion Gap 15.1 H, BUN 38 H, Creatinine 2.60 H, Estimated Creat Clear 20, Estimated GFR 19 L*, Est GFR ( Amer) 22 L, Glucose 101, Calcium 7.4 L, Ferritin 113 08/23/18 09:20: Vancomycin Trough 32.9 H 08/23/18 09:20: Blood Type O Positive, Crossmatch (AHG) See Detail I & O for Last 24 hours: Intake & Output 08/20/18 08/21/18 08/22/18 08/23/18 23:59 23:59 23:59 23:59 Intake Total 2116 / 2116 2133 / 2373 3377 / 3377 2205 / 2205 Output Total 500 / 500 600 / 600 675 / 675 400 / 400 Balance 1616 / 1616 1533 / 1773 2702 / 2702 1805 / 1805 Weight 130.6 kg 133 kg 134.2 kg 143.1 kg Microbiology Reports for the Last 24 Hours: Microbiology 08/19/18 14:05 Blood Blood Culture - Preliminary Enterococcus faecalis Staph hominis ssp hominis 08/19/18 14:05 Blood Blood Culture - Preliminary Staph hominis ssp hominis Assessment and Plan (1) Volume depletion Current visit: Yes Status: Acute Category: Medical Code(s): E86.9 - Volume depletion, unspecified (2) Hypotension Current visit: Yes Status: Acute Category: Medical Code(s): I95.9 - Hypotension, unspecified (3) Enterococcus UTI Current visit: Yes Status: Acute Category: Medical Code(s): N39.0 - Urinary tract infection, site not specified; B95.2 - Enterococcus as the cause of diseases classified elsewhere (4) MRSA bacteremia Current visit: Yes Status: Acute Category: Medical Code(s): R78.81 - Bacteremia (5) Weakness generalized Current visit: Yes Status: Acute Category: Medical Code(s): R53.1 - Weakness (6) Post op infection Current visit: Yes Status: Acute Category: Medical Code(s): T81.40XA - Infection following a procedure, unspecified, initial encounter (7) Anemia Current visit: Yes Status: Acute Category: Medical Code(s): D64.9 - Anemia, unspecified (8) Chronic renal failure, stage 3 (moderate) Current visit: Yes Status: Chronic Category: Medical Code(s): N18.3 - Chronic kidney disease, stage 3 (moderate) (9) Status post knee replacement Current visit: Yes Status: Chronic Category: Surgical Code(s): Z96.659 - Presence of unspecified artificial knee joint (10) Status post tendon repair Current visit: Yes Status: Chronic Category: Surgical Code(s): Z98.890 - Other specified postprocedural states (11) Mobility impaired Current visit: No Status: Acute Category: Medical Code(s): Z74.09 - Other reduced mobility (12) Postoperative wound infection Current visit: No Status: Acute Category: Medical Code(s): T81.49XA - Infection following a procedure, other surgical site, initial encounter (13) Arthritis Current visit: No Status: Chronic Category: Medical Code(s): M19.90 - Unspecified osteoarthritis, unspecified site (14) Degenerative disc disease Current visit: No Status: Chronic Category: Medical (15) GERD (gastroesophageal reflux disease) Current visit: No Status: Chronic Category: Medical Code(s): K21.9 - Gastro-esophageal reflux disease without esophagitis (16) Hypertension Current visit: No Status: Chronic Category: Medical C
--- NOTE | 2018-08-23 10:29 | P.PN_ITS ---
Internal Medicine - PN: Subj *Date: 08/23/18 *Time: 10:26 Exam Vital signs and Labs for Last 24 Hours: Temp Pulse Resp BP Pulse Ox 99.0 F 85 18 150/72 H 93 L 08/23/18 08:00 08/23/18 08:00 08/23/18 08:00 08/23/18 08:00 08/23/18 08:00 Laboratory Results - last 24 hr 08/22/18 09:30: Vancomycin Trough 38.0 H 08/23/18 07:08: WBC 9.5, RBC 2.68 L, Hgb 7.6 L*, Hct 24.0 L, MCV 89.7, MCH 28.2, MCHC 31.4 L, RDW 16.3, Plt Count 194, MPV 7.5, Neut % (Auto) 79.1, Lymph % (Auto) 10.5, [place] % (Auto) 6.0, Eos % (Auto) 4.3, Baso % (Auto) 0.1, Neut # (Auto) 7.5, Lymph # (Auto) 1.0, [place] # (Auto) 0.6, Eos # (Auto) 0.4, Baso # (Auto) 0.0 08/23/18 07:08: Sodium 140, Potassium 4.1, Chloride 110 H, Carbon Dioxide 19 L, Anion Gap 15.1 H, BUN 38 H, Creatinine 2.60 H, Estimated Creat Clear 20, Estimated GFR 19 L*, Est GFR ( Amer) 22 L, Glucose 101, Calcium 7.4 L, Ferritin 113 08/23/18 09:20: Vancomycin Trough 32.9 H 08/23/18 09:20: Blood Type O Positive, Crossmatch (AHG) See Detail I & O for Last 24 hours: Intake & Output 08/20/18 08/21/18 08/22/18 08/23/18 23:59 23:59 23:59 23:59 Intake Total 2116 / 2116 2133 / 2373 3377 / 3377 2205 / 2205 Output Total 500 / 500 600 / 600 675 / 675 400 / 400 Balance 1616 / 1616 1533 / 1773 2702 / 2702 1805 / 1805 Weight 130.6 kg 133 kg 134.2 kg 143.1 kg Microbiology Reports for the Last 24 Hours: Microbiology 08/19/18 14:05 Blood Blood Culture - Preliminary Enterococcus faecalis Staph hominis ssp hominis 08/19/18 14:05 Blood Blood Culture - Preliminary Staph hominis ssp hominis Assessment and Plan (1) Volume depletion Current visit: Yes Status: Acute Category: Medical Code(s): E86.9 - Volume depletion, unspecified (2) Hypotension Current visit: Yes Status: Acute Category: Medical Code(s): I95.9 - Hypotension, unspecified (3) Enterococcus UTI Current visit: Yes Status: Acute Category: Medical Code(s): N39.0 - Urinary tract infection, site not specified; B95.2 - Enterococcus as the cause of diseases classified elsewhere (4) MRSA bacteremia Current visit: Yes Status: Acute Category: Medical Code(s): R78.81 - Bacteremia (5) Weakness generalized Current visit: Yes Status: Acute Category: Medical Code(s): R53.1 - Weakness (6) Post op infection Current visit: Yes Status: Acute Category: Medical Code(s): T81.40XA - Infection following a procedure, unspecified, initial encounter (7) Anemia Current visit: Yes Status: Acute Category: Medical Code(s): D64.9 - Anemia, unspecified (8) Chronic renal failure, stage 3 (moderate) Current visit: Yes Status: Chronic Category: Medical Code(s): N18.3 - Chronic kidney disease, stage 3 (moderate) (9) Status post knee replacement Current visit: Yes Status: Chronic Category: Surgical Code(s): Z96.659 - Presence of unspecified artificial knee joint (10) Status post tendon repair Current visit: Yes Status: Chronic Category: Surgical Code(s): Z98.890 - Other specified postprocedural states (11) Mobility impaired Current visit: No Status: Acute Category: Medical Code(s): Z74.09 - Other reduced mobility (12) Postoperative wound infection Current visit: No Status: Acute Category: Medical Code(s
--- NOTE | 2018-08-23 11:07 | SW/DCPLANNER ---
I have spoke with this patients regarding discharge plans. stated that they are accepting the bed from [facility] once ready for discharge. Discharge date is unknown at this time. I will let Kristina know once discharge is ready so that precert can begin. I have also provided patients with a private sitters list. Patient nor has any needs at this time.
--- NOTE | 2018-08-23 18:35 | PC.NURSE ---
pt has been fatigued today. no changes from previous assessment. pt still has generalized edema. dressing to left knee changed this shift. site has no redness noted. pt tolerated well. 2 units PRBC given this shift with no complications at this time. family at bedside. lasix given between units and output from this was approximately 800ml. call light in reach. pt remains in contact precautions. will continue to monitor pt condition. v/s/s. picc patent.
[2018-08-23 19:41] LABS: Hematocrit 30.8 % (37.0-47.0)
[2018-08-23 19:50] LABS: Hemoglobin 9.9 g/dL (12.2-16.2)
--- NOTE | 2018-08-23 21:23 | PC.NURSE ---
2100 courtesy check, pt sleeping
[2018-08-24 04:02] VITALS: BP 146/79; PULSE 75; RESP 20; TEMP 36.7; O2SAT 99; BMI 52.2
--- NOTE | 2018-08-24 06:07 | PC.NURSE ---
PT ALERT AND ORIENTED. PT FATIGUED, BUT EASILY AROUSABLE. PICC LINE SECURE AND PATENT. CONTINUES ON IV FLUIDS NS @ 125/HR AND ALSO ON ABX. NO S/S OF REDNESS OR EDEMA. PT SLEPT LONG INTERVALS. PT STILL APPEARS TO BE THIRD SPACING. LOTS OF GENERALIZED EDEMA. DSG ON LLE SECURE. NO C/O PAIN REPORTED. PT FINISHED 2ND UNIT OF BLOOD START OF THIS SHIFT. A DOSE OF IV LASIX GIVEN. 1HR POST H&H IMPROVED. PT HAS ORDER FOR A.M. LABS TODAY. PT'S REAL SECURE AND DRAINING WELL. PT SLEPT LONG INTERVALS. RESPIRATIONS EVEN AND UNLABORED ON ROOM AIR. BREATH SOUNDS CLEAR, BUT DIMINISHED IN BASES. PT STABLE. CURRENTLY HAS VISITOR AT BEDSIDE, ALTHOUGH SHE IS ASLEEP. PT STABLE. WILL CONTINUE TO MONITOR. REPORT TO BE GIVEN TO ONCOMING NURSE.
--- NOTE | 2018-08-24 06:31 | PC.NURSE ---
0600 courtesy check, pt supine asleep
--- NOTE | 2018-08-24 07:19 | PC.NURSE ---
REPORT GIVEN TO Grecia MYLES
[2018-08-24 07:36] LABS: Basophils % 0.1 % (0.1-2.0); Eosinophils # 0.4 K/mm3 (0.0-0.4); Eosinophils % 3.6 % (0.1-12.0); Hematocrit 29.9 % (37.0-47.0); Hemoglobin 9.5 g/dL (12.2-16.2); Lymphocytes # 0.9 K/mm3 (0.7-4.5); Mean Corpuscular Hemoglobin 28.4 pg (27.0-31.2); Mean Corpuscular Volume 88.8 fl (81-99); Monocytes # 0.7 K/mm3 (0.1-1.0); Monocytes % 6.2 % (1.7-9.3); Neutrophils # 9.1 K/mm3 (1.8-7.8); Neutrophils % 82.1 % (37.0-80.0); Platelet Count 192 K/mm3 (142-424); Red Blood Count 3.36 M/mm3 (4.20-5.40); Red Cell Distribution Width 16.2 % (11.5-17.5); White Blood Count 11.1 K/mm3 (4.8-10.8)
[2018-08-24 07:40] LABS: Anion Gap 14.9 mEq/L (5-15); Blood Urea Nitrogen 37 mg/dL (7-18); Calcium 7.8 mg/dL (8.5-10.1); Carbon Dioxide 20 mmol/L (21.0-32.0); Chloride 111 mmol/L (98-107); Creatinine Clearance Estimated 20 mL/min (50-200); Estimated Glomerular Filt Rate 18 ml/min (>60); GFR (African American) 21 ML/MIN (>60); Glucose 92 mg/dL (74-106); Potassium 3.9 mmoL/L (3.5-5.1); Sodium 142 mmol/L (136-145)
[2018-08-24 08:00] VITALS: BP 143/64; PULSE 75; RESP 17; TEMP 36.6; O2SAT 99
--- NOTE | 2018-08-24 08:01 | HMH.ACPN2 ---
<Carol Timmons - Last Filed: 08/24/18 08:01> Internal Medicine - PN: Subj *Date: 08/24/18 *Time: 08:01 Interval history: Patient states she hurts all over this morning. She denies any shortness of breath. She slept off and on throughout the night and did eat a small amount of breakfast this morning. Exam Vital signs and Labs for Last 24 Hours: Temp Pulse Resp BP Pulse Ox 98.1 F 75 20 146/79 H 99 08/24/18 04:02 08/24/18 04:02 08/24/18 04:02 08/24/18 04:02 08/24/18 04:02 Laboratory Results - last 24 hr 08/23/18 07:08: Sodium 140, Potassium 4.1, Chloride 110 H, Carbon Dioxide 19 L, Anion Gap 15.1 H, BUN 38 H, Creatinine 2.60 H, Estimated Creat Clear 20, Estimated GFR 19 L*, Est GFR ( Amer) 22 L, Glucose 101, Calcium 7.4 L, Ferritin 113 08/23/18 09:20: Vancomycin Trough 32.9 H 08/23/18 09:20: Blood Type O Positive, Antibody Screen Negative, Crossmatch (AHG) See Detail 08/23/18 10:30: Blood Type Confirm O Positive 08/23/18 19:14: Hgb 9.9 L D, Hct 30.8 L 08/24/18 06:40: WBC 11.1 H, RBC 3.36 L D, Hgb 9.5 L, Hct 29.9 L, MCV 88.8, MCH 28.4, MCHC 32.0, RDW 16.2, Plt Count 192, MPV 8.0, Neut % (Auto) 82.1 H, Lymph % (Auto) 8.0 L, [place] % (Auto) 6.2, Eos % (Auto) 3.6, Baso % (Auto) 0.1, Neut # (Auto) 9.1 H, Lymph # (Auto) 0.9, [place] # (Auto) 0.7, Eos # (Auto) 0.4, Baso # (Auto) 0.0 08/24/18 06:40: Sodium 142, Potassium 3.9, Chloride 111 H, Carbon Dioxide 20 L, Anion Gap 14.9, BUN 37 H, Creatinine 2.70 H, Estimated Creat Clear 20, Estimated GFR 18 L*, Est GFR ( Amer) 21 L, Glucose 92, Calcium 7.8 L I & O for Last 24 hours: Intake & Output 08/21/18 08/22/18 08/23/18 08/24/18 11:59 11:59 11:59 11:59 Intake Total 2501 / 2501 2125 / 2125 5129 / 5129 2140 / 2140 Output Total 300 / 300 575 / 575 800 / 800 2550 / 2550 Balance 2201 / 2201 1550 / 1550 4329 / 4329 -410 / -410 Weight 293 lb 3.437 oz 295 lb 13.765 oz 315 lb 7.704 oz 324 lb 1.272 oz Microbiology Reports for the Last 24 Hours: Microbiology 08/19/18 14:05 Blood Blood Culture - Preliminary Enterococcus faecalis Staph hominis ssp hominis - Constitutional no acute distress - *Routine Respiratory Exam Present: CTA bilaterally - *Routine Cardiovascular Exam Present: RRR - *Routine Abdominal Exam Present: soft, normoactive bowel sounds. Absent: tenderness - *Routine Extremities Exam Present: edema (bilateral LE edema) - *Routine Neurological Exam Present: alert, oriented X3 Assessment and Plan (1) Volume depletion Current visit: Yes Status: Acute Category: Medical Code(s): E86.9 - Volume depletion, unspecified (2) Hypotension Current visit: Yes Status: Acute Category: Medical Code(s): I95.9 - Hypotension, unspecified (3) Enterococcus UTI Current visit: Yes Status: Acute Category: Medical Code(s): N39.0 - Urinary tract infection, site not specified; B95.2 - Enterococcus as the cause of diseases classified elsewhere (4) MRSA bacteremia Current visit: Yes Status: Acute Category: Medical Code(s): R78.81 - Bacteremia (5) Weakness generalized Current visit: Yes Status: Acute Category: Medical Code(s): R53.1 - Weakness (6) Post op infection Current visit: Yes Status: Acute Category: Medical Code(s): T81.40XA - Infection following a procedure, unspecified, initial encounter (7) Anemia Current visit: Yes Status: Acute Category: Medical Code(s): D64.9 - Anemia, unspecified (8) Chronic renal failure, stage 3 (moderate) Current visit: Yes Status: Chronic Category: Medical Code(s): N18.3 - Chronic kidney disease, stage 3 (moderate) (9) Status post knee replacement Current visit: Yes Status: Chronic Category: Surgical Code(s): Z96.659 - Presence of unspecified artificial knee joint (10) Status post tendon repair Current visit: Yes Status: Chronic Category: Surgical Code(s): Z98.890 - Other sp
--- NOTE | 2018-08-24 08:04 | P.PN_ITS ---
<Carol Timmons - Last Filed: 08/24/18 08:01> Internal Medicine - PN: Subj *Date: 08/24/18 *Time: 08:01 Interval history: Patient states she hurts all over this morning. She denies any shortness of breath. She slept off and on throughout the night and did eat a small amount of breakfast this morning. Exam Vital signs and Labs for Last 24 Hours: Temp Pulse Resp BP Pulse Ox 98.1 F 75 20 146/79 H 99 08/24/18 04:02 08/24/18 04:02 08/24/18 04:02 08/24/18 04:02 08/24/18 04:02 Laboratory Results - last 24 hr 08/23/18 07:08: Sodium 140, Potassium 4.1, Chloride 110 H, Carbon Dioxide 19 L, Anion Gap 15.1 H, BUN 38 H, Creatinine 2.60 H, Estimated Creat Clear 20, Estimated GFR 19 L*, Est GFR ( Amer) 22 L, Glucose 101, Calcium 7.4 L, Ferritin 113 08/23/18 09:20: Vancomycin Trough 32.9 H 08/23/18 09:20: Blood Type O Positive, Antibody Screen Negative, Crossmatch (AHG) See Detail 08/23/18 10:30: Blood Type Confirm O Positive 08/23/18 19:14: Hgb 9.9 L D, Hct 30.8 L 08/24/18 06:40: WBC 11.1 H, RBC 3.36 L D, Hgb 9.5 L, Hct 29.9 L, MCV 88.8, MCH 28.4, MCHC 32.0, RDW 16.2, Plt Count 192, MPV 8.0, Neut % (Auto) 82.1 H, Lymph % (Auto) 8.0 L, [place] % (Auto) 6.2, Eos % (Auto) 3.6, Baso % (Auto) 0.1, Neut # (Auto) 9.1 H, Lymph # (Auto) 0.9, [place] # (Auto) 0.7, Eos # (Auto) 0.4, Baso # (Auto) 0.0 08/24/18 06:40: Sodium 142, Potassium 3.9, Chloride 111 H, Carbon Dioxide 20 L, Anion Gap 14.9, BUN 37 H, Creatinine 2.70 H, Estimated Creat Clear 20, Estimated GFR 18 L*, Est GFR ( Amer) 21 L, Glucose 92, Calcium 7.8 L I & O for Last 24 hours: Intake & Output 08/21/18 08/22/18 08/23/18 08/24/18 11:59 11:59 11:59 11:59 Intake Total 2501 / 2501 2125 / 2125 5129 / 5129 2140 / 2140 Output Total 300 / 300 575 / 575 800 / 800 2550 / 2550 Balance 2201 / 2201 1550 / 1550 4329 / 4329 -410 / -410 Weight 293 lb 3.437 oz 295 lb 13.765 oz 315 lb 7.704 oz 324 lb 1.272 oz Microbiology Reports for the Last 24 Hours: Microbiology 08/19/18 14:05 Blood Blood Culture - Preliminary Enterococcus faecalis Staph hominis ssp hominis - Constitutional no acute distress - *Routine Respiratory Exam Present: CTA bilaterally - *Routine Cardiovascular Exam Present: RRR - *Routine Abdominal Exam Present: soft, normoactive bowel sounds. Absent: tenderness - *Routine Extremities Exam Present: edema (bilateral LE edema) - *Routine Neurological Exam Present: alert, oriented X3 Assessment and Plan (1) Volume depletion Current visit: Yes Status: Acute Category: Medical Code(s): E86.9 - Volume depletion, unspecified (2) Hypotension Current visit: Yes Status: Acute Category: Medical Code(s): I95.9 - Hypotension, unspecified (3) Enterococcus UTI Current visit: Yes Status: Acute Category: Medical Code(s): N39.0 - Urinary tract infection, site not specified; B95.2 - Enterococcus as the cause of diseases classified elsewhere (4) MRSA bacteremia Current visit: Yes Status: Acute Category: Medical Code(s): R78.81 - Bacteremia (5) Weakness generalized Current visit: Yes Status: Acute Category: Medical Code(s): R53.1 - Weakness (6) Post op infection Current visit: Yes Status: Acute Category: Medical Code(s): T81.40XA - Infection following a procedure, u
--- NOTE | 2018-08-24 08:11 | SW/DCPLANNER ---
I have updated Kristina at [facility] regarding this patient. Patient is not ready for discharge at this time. I will continue to update [facility].
[2018-08-24 09:53] LABS: Iron 22 ug/dL (27-139); Iron Saturation 13 % (15-55); UIBC 145 ug/dL (118-369)
[2018-08-24 10:06] LABS: Vitamin B12 309 pg/mL (232-1245)
[2018-08-24 10:07] LABS: Folate 8.9 ng/mL (>3.0)
[2018-08-24 10:32] LABS: Vancomycin,Trough 28.1 mcg/ml (10.0-20.0)
--- NOTE | 2018-08-24 11:06 | HMH.PHACONS ---
- Pharmacy Consult Date: 08/24/18 Time: 11:06 Referring provider: DR. SHEPARD Reason for Consult:: VANCOMYCIN TROUGH LEVEL Allergies and ADEs:: Allergies Allergy/AdvReac Type Severity Reaction Status Date / Time amoxicillin [From Augmentin] Allergy Severe Rash Verified 08/10/18 18:40 clavulanic acid Allergy Severe Rash Verified 08/10/18 18:40 [From Augmentin] clarithromycin [From BIAXIN] Allergy Unknown Verified 03/06/18 22:23 Home Medications:: Home Medications Medication Instructions Recorded Confirmed Type Baclofen [Lioresal 10mg tablet] 10 mg PO TIDP PRN 03/06/18 08/20/18 History Celecoxib 200 mg PO DAILY 03/06/18 08/19/18 History Metoclopramide HCl [Metoclopramide 10 mg PO BID 03/06/18 08/19/18 History 10mg Tablet] Metoprolol Tartrate [Lopressor 50 mg PO DAILY 03/06/18 08/19/18 History 50mg tablet] Morphine Sulfate [Morphine Sulfate 30 mg PO DIRECTED 03/06/18 08/19/18 History ER 30mg Cap] Omeprazole [Omeprazole 20mg 20 mg PO DAILY 03/06/18 08/19/18 History Capsule] Simvastatin 40 mg PO HS 03/06/18 08/19/18 History Topiramate 25 mg PO BID 03/06/18 08/19/18 History Oxybutynin Chloride [Ditropan 5mg 5 mg PO BID 08/11/18 08/19/18 History tablet] Gabapentin [Gabapentin 300mg Cap] 300 mg PO BID #60 cap 08/16/18 08/19/18 Rx Vancomycin HCl [Vancomycin 1000mg 2,250 mg IV Q36H 08/19/18 08/19/18 History Vial] Height: 1.68 m Weight: 147 kg Laboratory Results:: Laboratory Results - last 24 hr 08/23/18 07:08: Vitamin B12 309 08/23/18 07:08: Iron 22 L, TIBC 167 L, Iron Saturation 13 L, Unsaturated IBC 145, Folate 8.9 08/23/18 09:20: Blood Type O Positive, Antibody Screen Negative, Crossmatch (AHG) See Detail 08/23/18 19:14: Hgb 9.9 L D, Hct 30.8 L 08/24/18 06:40: WBC 11.1 H, RBC 3.36 L D, Hgb 9.5 L, Hct 29.9 L, MCV 88.8, MCH 28.4, MCHC 32.0, RDW 16.2, Plt Count 192, MPV 8.0, Neut % (Auto) 82.1 H, Lymph % (Auto) 8.0 L, [place] % (Auto) 6.2, Eos % (Auto) 3.6, Baso % (Auto) 0.1, Neut # (Auto) 9.1 H, Lymph # (Auto) 0.9, [place] # (Auto) 0.7, Eos # (Auto) 0.4, Baso # (Auto) 0.0 08/24/18 06:40: Sodium 142, Potassium 3.9, Chloride 111 H, Carbon Dioxide 20 L, Anion Gap 14.9, BUN 37 H, Creatinine 2.70 H, Estimated Creat Clear 20, Estimated GFR 18 L*, Est GFR ( Amer) 21 L, Glucose 92, Calcium 7.8 L 08/24/18 09:55: Vancomycin Trough 28.1 H Medical History: Reports:: Cancer (CERVICAL), Gastroesophageal Reflux Disease(GERD), Hyperlipidemia, Hypertension, Migraine, MRSA Denies:: Diabetes Mellitus Type 1, Diabetes Mellitus Type 2 Assessment and Plan (1) Volume depletion Current visit: Yes Status: Acute Category: Medical Code(s): E86.9 - Volume depletion, unspecified (2) Hypotension Current visit: Yes Status: Acute Category: Medical Code(s): I95.9 - Hypotension, unspecified (3) Enterococcus UTI Current visit: Yes Status: Acute Category: Medical Code(s): N39.0 - Urinary tract infection, site not specified; B95.2 - Enterococcus as the cause of diseases classified elsewhere (4) MRSA bacteremia Current visit: Yes Status: Acute Category: Medical Code(s): R78.81 - Bacteremia (5) Weakness generalized Current visit: Yes Status: Acute Category: Medical Code(s): R53.1 - Weakness (6) Post op infection Current visit: Yes Status: Acute Category: Medical Code(s): T81.40XA - Infection following a procedure, unspecified, initial encounter (7) Anemia Current visit: Yes Status: Acute Category: Medical Code(s): D64.9 - Anemia, unspecified (8) Chronic renal failure, stage 3 (moderate) Current visit: Yes Status: Chronic Category: Medical Code(s): N18.3 - Chronic kidney disease, stage 3 (moderate) (9) Status post knee replacement Current visit: Yes Status: Chronic Category: Surgical Code(s): Z96.659 - Presence of unspecified artificial knee joint (10) Status post tendon repair Current visit: Yes Status: Chronic Category: Surgical
--- NOTE | 2018-08-24 13:47 | DIET.NUTRFU ---
PO intakes remain very poor 10% avg. remains at bedside. She is drinking Breeze and Glucerna supplements that are provided with meals. Significant weight gain from 295 lbs to current 324 lbs. Lasix has been increased. Will continue to monitor.
[2018-08-24 15:57] VITALS: BP 126/50; PULSE 64; RESP 15; TEMP 36.5; O2SAT 98
--- NOTE | 2018-08-24 16:12 | PC.NURSE ---
1530: called [facility] office. c stephanie millard bisacodyl supp x1 for pt
--- NOTE | 2018-08-24 18:17 | PC.NURSE ---
pt has had no luck with BM after supp. will make a prune/apple juice drink and heat it up to see if this help. pt is also reminded that she has miralax in her system too.
--- NOTE | 2018-08-24 19:17 | PC.NURSE ---
report given to familia
[2018-08-24 20:00] VITALS: BP 140/64; PULSE 86; RESP 20; TEMP 36.4; O2SAT 97
[2018-08-25 04:00] VITALS: BP 139/64; PULSE 72; RESP 18; TEMP 36.9; O2SAT 97
--- NOTE | 2018-08-25 04:11 | PC.NURSE ---
PT IS A&OX 3. PT COMPLAINED OF CONSTIPATION AT THE BEGINNING OF THE SHIFT. WHEN WE WENT TO CLEAN HER UP THE PT HAD HAD A MASSIVE BOWEL MOVEMENT. THE STOOL CONSISTENCY INCLUDED COMPACTED STOOL PIECES FOLLOWED BY MULTIPLE DIARRHEA EPISODES. PT REPORTED FEELING RELIEF AND WAS ABLE TO SLEEP T/O THE NIGHT. PT REMAINED IN CONTACT ISOLATION T/O THE SHIFT. PT DENIED ANY PAIN. DRESSING WAS CHANGED AND THE WOUND WAS REPACKED THIS SHIFT. REAL CATHETER REMAINED IN PLACE. DRESSING WAS CDI WITH NO S/S OF INFECTION. CALL LIGHT KEPT IN PLACE. VSS. WILL CONTINUE TO MONITOR.
[2018-08-25 05:59] VITALS: BMI 52.1
[2018-08-25 07:28] LABS: Basophils % 0.1 % (0.1-2.0); Eosinophils # 0.4 K/mm3 (0.0-0.4); Eosinophils % 3.1 % (0.1-12.0); Hemoglobin 9.6 g/dL (12.2-16.2); Lymphocytes # 1.3 K/mm3 (0.7-4.5); Lymphocytes % 11.3 % (10-50); Mean Corpuscular HGB Conc 32.1 g/dL (31.8-35.4); Mean Corpuscular Hemoglobin 28.1 pg (27.0-31.2); Mean Corpuscular Volume 87.4 fl (81-99); Mean Platelet Volume 7.5 fl (7.4-10.4); Monocytes # 0.8 K/mm3 (0.1-1.0); Neutrophils # 9.2 K/mm3 (1.8-7.8); Neutrophils % 78.4 % (37.0-80.0); Platelet Count 212 K/mm3 (142-424); Red Blood Count 3.43 M/mm3 (4.20-5.40); Red Cell Distribution Width 16.5 % (11.5-17.5); White Blood Count 11.7 K/mm3 (4.8-10.8)
[2018-08-25 07:48] LABS: Anion Gap 15.8 mEq/L (5-15); Blood Urea Nitrogen 36 mg/dL (7-18); Calcium 7.9 mg/dL (8.5-10.1); Carbon Dioxide 19 mmol/L (21.0-32.0); Chloride 113 mmol/L (98-107); Creatinine Clearance Estimated 19 mL/min (50-200); Creatinine,Serum 2.79 mg/dL (0.55-1.02); Estimated Glomerular Filt Rate 17 ml/min (>60); GFR (African American) 21 ML/MIN (>60); Glucose 91 mg/dL (74-106); Potassium 3.8 mmoL/L (3.5-5.1); Sodium 144 mmol/L (136-145)
[2018-08-25 08:00] VITALS: BP 155/77; PULSE 75; RESP 16; TEMP 36.8; O2SAT 96
--- NOTE | 2018-08-25 08:21 | HMH.ACPN2 ---
<Carol Timmons - Last Filed: 08/25/18 08:21> Internal Medicine - PN: Subj *Date: 08/25/18 *Time: 08:21 Interval history: Patient states she is feeling a little bit better today. She is not aching all over like she was yesterday. She states she slept well throughout the night and did eat a small amount of breakfast. She finally had a bowel movement yesterday. Exam Vital signs and Labs for Last 24 Hours: Temp Pulse Resp BP Pulse Ox 98.5 F 72 18 139/64 97 08/25/18 04:00 08/25/18 04:00 08/25/18 04:00 08/25/18 04:00 08/25/18 04:00 Laboratory Results - last 24 hr 08/23/18 07:08: Vitamin B12 309 08/23/18 07:08: Iron 22 L, TIBC 167 L, Iron Saturation 13 L, Unsaturated IBC 145, Folate 8.9 08/24/18 09:55: Vancomycin Trough 28.1 H 08/25/18 07:14: Sodium 144, Potassium 3.8, Chloride 113 H, Carbon Dioxide 19 L, Anion Gap 15.8 H, BUN 36 H, Creatinine 2.79 H, Estimated Creat Clear 19, Estimated GFR 17 L*, Est GFR ( Amer) 21 L, Glucose 91, Calcium 7.9 L 08/25/18 07:14: WBC 11.7 H, RBC 3.43 L, Hgb 9.6 L, Hct 30.0 L, MCV 87.4, MCH 28.1, MCHC 32.1, RDW 16.5, Plt Count 212, MPV 7.5, Neut % (Auto) 78.4, Lymph % (Auto) 11.3, [place] % (Auto) 7.0, Eos % (Auto) 3.1, Baso % (Auto) 0.1, Neut # (Auto) 9.2 H, Lymph # (Auto) 1.3, [place] # (Auto) 0.8, Eos # (Auto) 0.4, Baso # (Auto) 0.0 I & O for Last 24 hours: Intake & Output 08/22/18 08/23/18 08/24/18 08/25/18 11:59 11:59 11:59 11:59 Intake Total 2125 / 2125 5129 / 5129 2260 / 2260 1194 / 1194 Output Total 575 / 575 800 / 800 2550 / 2550 3000 / 3000 Balance 1550 / 1550 4329 / 4329 -290 / -290 -1806 / -1806 Weight 295 lb 13.765 oz 315 lb 7.704 oz 324 lb 1.272 oz 323 lb 3 oz - Constitutional no acute distress - *Routine Respiratory Exam Present: CTA bilaterally - *Routine Cardiovascular Exam Present: RRR - *Routine Abdominal Exam Present: soft, normoactive bowel sounds. Absent: tenderness - *Routine Extremities Exam Present: edema (bilateral LE's). Absent: cyanosis, clubbing Assessment and Plan (1) Volume depletion Current visit: Yes Status: Acute Category: Medical Code(s): E86.9 - Volume depletion, unspecified (2) Hypotension Current visit: Yes Status: Acute Category: Medical Code(s): I95.9 - Hypotension, unspecified (3) Enterococcus UTI Current visit: Yes Status: Acute Category: Medical Code(s): N39.0 - Urinary tract infection, site not specified; B95.2 - Enterococcus as the cause of diseases classified elsewhere (4) MRSA bacteremia Current visit: Yes Status: Acute Category: Medical Code(s): R78.81 - Bacteremia (5) Weakness generalized Current visit: Yes Status: Acute Category: Medical Code(s): R53.1 - Weakness (6) Post op infection Current visit: Yes Status: Acute Category: Medical Code(s): T81.40XA - Infection following a procedure, unspecified, initial encounter (7) Anemia Current visit: Yes Status: Acute Category: Medical Code(s): D64.9 - Anemia, unspecified (8) Chronic renal failure, stage 3 (moderate) Current visit: Yes Status: Chronic Category: Medical Code(s): N18.3 - Chronic kidney disease, stage 3 (moderate) (9) Status post knee replacement Current visit: Yes Status: Chronic Category: Surgical Code(s): Z96.659 - Presence of unspecified artificial knee joint (10) Status post tendon repair Current visit: Yes Status: Chronic Category: Surgical Code(s): Z98.890 - Other specified postprocedural states (11) Mobility impaired Current visit: No Status: Acute Category: Medical Code(s): Z74.09 - Other reduced mobility (12) Postoperative wound infection Current visit: No Status: Acute Category: Medical Code(s): T81.49XA - Infection following a procedure, other surgical site, initial encounter (13) Arthritis Current visit: No Status: Chronic Category: Medical Code(s): M19.90 - Unspecified osteoarthritis, unspecified site (14) Swetha
--- NOTE | 2018-08-25 08:25 | P.PN_ITS ---
<Carol Timmons - Last Filed: 08/25/18 08:21> Internal Medicine - PN: Subj *Date: 08/25/18 *Time: 08:21 Interval history: Patient states she is feeling a little bit better today. She is not aching all over like she was yesterday. She states she slept well throughout the night and did eat a small amount of breakfast. She finally had a bowel movement yesterday. Exam Vital signs and Labs for Last 24 Hours: Temp Pulse Resp BP Pulse Ox 98.5 F 72 18 139/64 97 08/25/18 04:00 08/25/18 04:00 08/25/18 04:00 08/25/18 04:00 08/25/18 04:00 Laboratory Results - last 24 hr 08/23/18 07:08: Vitamin B12 309 08/23/18 07:08: Iron 22 L, TIBC 167 L, Iron Saturation 13 L, Unsaturated IBC 145, Folate 8.9 08/24/18 09:55: Vancomycin Trough 28.1 H 08/25/18 07:14: Sodium 144, Potassium 3.8, Chloride 113 H, Carbon Dioxide 19 L, Anion Gap 15.8 H, BUN 36 H, Creatinine 2.79 H, Estimated Creat Clear 19, Estimated GFR 17 L*, Est GFR ( Amer) 21 L, Glucose 91, Calcium 7.9 L 08/25/18 07:14: WBC 11.7 H, RBC 3.43 L, Hgb 9.6 L, Hct 30.0 L, MCV 87.4, MCH 28.1, MCHC 32.1, RDW 16.5, Plt Count 212, MPV 7.5, Neut % (Auto) 78.4, Lymph % (Auto) 11.3, [place] % (Auto) 7.0, Eos % (Auto) 3.1, Baso % (Auto) 0.1, Neut # (Auto) 9.2 H, Lymph # (Auto) 1.3, [place] # (Auto) 0.8, Eos # (Auto) 0.4, Baso # (Auto) 0.0 I & O for Last 24 hours: Intake & Output 08/22/18 08/23/18 08/24/18 08/25/18 11:59 11:59 11:59 11:59 Intake Total 2125 / 2125 5129 / 5129 2260 / 2260 1194 / 1194 Output Total 575 / 575 800 / 800 2550 / 2550 3000 / 3000 Balance 1550 / 1550 4329 / 4329 -290 / -290 -1806 / -1806 Weight 295 lb 13.765 oz 315 lb 7.704 oz 324 lb 1.272 oz 323 lb 3 oz - Constitutional no acute distress - *Routine Respiratory Exam Present: CTA bilaterally - *Routine Cardiovascular Exam Present: RRR - *Routine Abdominal Exam Present: soft, normoactive bowel sounds. Absent: tenderness - *Routine Extremities Exam Present: edema (bilateral LE's). Absent: cyanosis, clubbing Assessment and Plan (1) Volume depletion Current visit: Yes Status: Acute Category: Medical Code(s): E86.9 - Volume depletion, unspecified (2) Hypotension Current visit: Yes Status: Acute Category: Medical Code(s): I95.9 - Hypotension, unspecified (3) Enterococcus UTI Current visit: Yes Status: Acute Category: Medical Code(s): N39.0 - Urinary tract infection, site not specified; B95.2 - Enterococcus as the cause of diseases classified elsewhere (4) MRSA bacteremia Current visit: Yes Status: Acute Category: Medical Code(s): R78.81 - Bacteremia (5) Weakness generalized Current visit: Yes Status: Acute Category: Medical Code(s): R53.1 - Weakness (6) Post op infection Current visit: Yes Status: Acute Category: Medical Code(s): T81.40XA - Infection following a procedure, unspecified, initial encounter (7) Anemia Current visit: Yes Status: Acute Category: Medical Code(s): D64.9 - Anemia, unspecified (8) Chronic renal failure, stage 3 (moderate) Current visit: Yes Status: Chronic Category: Medical Code(s): N18.3 - Chronic kidney disease, stage 3 (moderate) (9) Status post knee replacement Current visit: Yes Status: Chronic Category: Surgical Code(s): Z96.659 - Presence of unspecified artificial knee joint (10) Status post tendon repa
--- NOTE | 2018-08-25 08:38 | DIET.NUTRFU ---
Nutrition consult for low albumin. Albumin dropped from 1.4 to 1.2. Fluid weight gain may contributing to low albumin. PO intakes are slowly improving to 25% avg. In addition to Ensure and Breeze supplements, will include protein powder supplements to foods and increase protein source foods.
--- NOTE | 2018-08-25 09:33 | SW/DCPLANNER ---
Updated patient information has been faxed to Kristina at [place].
[2018-08-25 10:00] LABS: Anion Gap 13.7 mEq/L (5-15); Blood Urea Nitrogen 36 mg/dL (7-18); Calcium 7.7 mg/dL (8.5-10.1); Carbon Dioxide 20 mmol/L (21.0-32.0); Chloride 114 mmol/L (98-107); Creatinine Clearance Estimated 19 mL/min (50-200); Creatinine,Serum 2.86 mg/dL (0.55-1.02); Estimated Glomerular Filt Rate 17 ml/min (>60); GFR (African American) 20 ML/MIN (>60); Glucose 90 mg/dL (74-106); Potassium 3.7 mmoL/L (3.5-5.1); Sodium 144 mmol/L (136-145)
[2018-08-25 10:03] LABS: Vancomycin,Trough 25.4 mcg/ml (10.0-20.0)
--- NOTE | 2018-08-25 10:45 | HMH.PHACONS ---
- Pharmacy Consult Date: 08/25/18 Time: 10:45 Referring provider: DR. SHEPARD Reason for Consult:: VANCOMYCIN TROUGH LEVEL Allergies and ADEs:: Allergies Allergy/AdvReac Type Severity Reaction Status Date / Time amoxicillin [From Augmentin] Allergy Severe Rash Verified 08/10/18 18:40 clavulanic acid Allergy Severe Rash Verified 08/10/18 18:40 [From Augmentin] clarithromycin [From BIAXIN] Allergy Unknown Verified 03/06/18 22:23 Home Medications:: Home Medications Medication Instructions Recorded Confirmed Type Baclofen [Lioresal 10mg tablet] 10 mg PO TIDP PRN 03/06/18 08/20/18 History Celecoxib 200 mg PO DAILY 03/06/18 08/19/18 History Metoclopramide HCl [Metoclopramide 10 mg PO BID 03/06/18 08/19/18 History 10mg Tablet] Metoprolol Tartrate [Lopressor 50 mg PO DAILY 03/06/18 08/19/18 History 50mg tablet] Morphine Sulfate [Morphine Sulfate 30 mg PO DIRECTED 03/06/18 08/19/18 History ER 30mg Cap] Omeprazole [Omeprazole 20mg 20 mg PO DAILY 03/06/18 08/19/18 History Capsule] Simvastatin 40 mg PO HS 03/06/18 08/19/18 History Topiramate 25 mg PO BID 03/06/18 08/19/18 History Oxybutynin Chloride [Ditropan 5mg 5 mg PO BID 08/11/18 08/19/18 History tablet] Gabapentin [Gabapentin 300mg Cap] 300 mg PO BID #60 cap 08/16/18 08/19/18 Rx Vancomycin HCl [Vancomycin 1000mg 2,250 mg IV Q36H 08/19/18 08/19/18 History Vial] Height: 1.68 m Weight: 146.595 kg Laboratory Results:: Laboratory Results - last 24 hr 08/25/18 07:14: Sodium 144, Potassium 3.8, Chloride 113 H, Carbon Dioxide 19 L, Anion Gap 15.8 H, BUN 36 H, Creatinine 2.79 H, Estimated Creat Clear 19, Estimated GFR 17 L*, Est GFR ( Amer) 21 L, Glucose 91, Calcium 7.9 L 08/25/18 07:14: WBC 11.7 H, RBC 3.43 L, Hgb 9.6 L, Hct 30.0 L, MCV 87.4, MCH 28.1, MCHC 32.1, RDW 16.5, Plt Count 212, MPV 7.5, Neut % (Auto) 78.4, Lymph % (Auto) 11.3, [place] % (Auto) 7.0, Eos % (Auto) 3.1, Baso % (Auto) 0.1, Neut # (Auto) 9.2 H, Lymph # (Auto) 1.3, [place] # (Auto) 0.8, Eos # (Auto) 0.4, Baso # (Auto) 0.0 08/25/18 09:35: Vancomycin Trough 25.4 H 08/25/18 09:35: Sodium 144, Potassium 3.7, Chloride 114 H, Carbon Dioxide 20 L, Anion Gap 13.7, BUN 36 H, Creatinine 2.86 H, Estimated Creat Clear 19, Estimated GFR 17 L*, Est GFR ( Amer) 20 L, Glucose 90, Calcium 7.7 L Medical History: Reports:: Cancer (CERVICAL), Gastroesophageal Reflux Disease(GERD), Hyperlipidemia, Hypertension, Migraine, MRSA Denies:: Diabetes Mellitus Type 1, Diabetes Mellitus Type 2 Assessment and Plan (1) Volume depletion Current visit: Yes Status: Acute Category: Medical Code(s): E86.9 - Volume depletion, unspecified (2) Hypotension Current visit: Yes Status: Acute Category: Medical Code(s): I95.9 - Hypotension, unspecified (3) Enterococcus UTI Current visit: Yes Status: Acute Category: Medical Code(s): N39.0 - Urinary tract infection, site not specified; B95.2 - Enterococcus as the cause of diseases classified elsewhere (4) MRSA bacteremia Current visit: Yes Status: Acute Category: Medical Code(s): R78.81 - Bacteremia (5) Weakness generalized Current visit: Yes Status: Acute Category: Medical Code(s): R53.1 - Weakness (6) Post op infection Current visit: Yes Status: Acute Category: Medical Code(s): T81.40XA - Infection following a procedure, unspecified, initial encounter (7) Anemia Current visit: Yes Status: Acute Category: Medical Code(s): D64.9 - Anemia, unspecified (8) Chronic renal failure, stage 3 (moderate) Current visit: Yes Status: Chronic Category: Medical Code(s): N18.3 - Chronic kidney disease, stage 3 (moderate) (9) Status post knee replacement Current visit: Yes Status: Chronic Category: Surgical Code(s): Z96.659 - Presence of unspecified artificial knee joint (10) Status post tendon repair Current visit: Yes Status: Chronic Category: Surgical Code(s): Z98.890 - Other specif
--- NOTE | 2018-08-25 13:36 | SW/DCPLANNER ---
Addendum entered by Elda Kruger 08/26/18 14:48: Samantha has followed up with me multiple times this afternoon regarding placement at [facility] for this patient. I am still waiting for a final answer regarding placement for this patient. I have updated family. Addendum entered by Elda Kruger 08/26/18 09:18: requested patient information be sent to [facility] then [facility]. I spoke with Eden at [facility] and she stated they currently are not in network with this patients insurance. I have also spoke with Samantha at [facility] whom has requested this patients information and does have beds available. Patient information has been faxed and I will follow up with Smaantha this afternoon. Addendum entered by Elda Kruger 08/25/18 16:56: I have left patients with a list of facilities that are local or in surrounding counties. I have explained to that due to not having a confirmed bed we will need to fax information else....[facility] could have a bed opening first of the week but another bed will need to be secured in case discharge over the weekend. stated that he would need to speak with patients sister then he would let me know. I will get in touch with patient this evening or first thing in the AM. Original Note: Kristina from [facility] called and informed me that they can no longer hold this patients bed for her. Patients stated that he was willing to pay private pay to secure the bed and Kristina has refused this at this time. Kristina has stated that they should have a bed available at the beginning of the week. Patients stated that he was fixing to leave and was going to stop by [facility] to have them explain to him why they refused this patient last week in the ED. I will follow up with patient after he speaks with [facility] and then inform patient and that if [facility] nor [facility] have a bed then we will need to search for further options. I will follow up with this patient this afternoon.
[2018-08-25 15:42] VITALS: BP 153/69; PULSE 74; RESP 17; TEMP 36.4; O2SAT 98
--- NOTE | 2018-08-25 17:49 | HMH.ORTHOCON ---
*Admission Date: 08/19/18 *Chief complaint: soiled splint *History of present illness: 63yo F s/p L TKA followed by post-operative patellar tendon rupture that was repaired; this subsequently failed and was recently reconstructed with mesh. Her surgeon is with [facility] in [place]. She has a small wound infection over the superior margin of the surgical incision that has grown MRSA; this is being backed with betadine-soaked packing strips daily. Currently on IV ceftriaxone; vancomycin was used until her kidney function declined. She was admitted 08/19/2018 with MRSA bacteremia. Has not had a bowel movement for a month, which changed this afternoon when she had a few large BMs. This soiled her splint so I was called to assist with wound care/splint replacement. Review of Systems - Review of Systems Review of systems:: pertinent systems reviewed and negative unless documented below - *Neurologic Reports weakness, Denies seizure-like activity, Denies localized weakness, Denies seizure-like activity, Denies fainting, Denies tingling, Denies dizziness [facility] History I have reviewed the patient's past medical history: Yes Medical History: Reports:: Cancer (CERVICAL), Gastroesophageal Reflux Disease(GERD), Hyperlipidemia, Hypertension, Migraine, MRSA Denies:: Diabetes Mellitus Type 1, Diabetes Mellitus Type 2 *Have you ever received a pneumonia vaccine?: No *Have you received a flu vaccine this season?: Yes Other Medical History: Reports: Arthritis Laterality Cases: Right: Breast Biopsy, Bilateral: Total Knee Replacement, Other Other Surgeries: Yes: Hysterectomy-Total, Other (Total L Knee February 2018, L knee tendon repair March 2018,) Amputation: No Fractures: No - *Social History Educational Level: Attended College Smoking Status: Never smoker Alcohol Intake: never *Occupational Status:: retired Household Members: spouse *Travel in the last 8 weeks: None - Psychiatric History Expresses thoughts of harming self/others: None Suicide Plan Description: No Plan Family Hx:: Cancer, Heart Attack Meds Home Medications Medication Instructions Recorded Confirmed Type Baclofen [Lioresal 10mg tablet] 10 mg PO TIDP PRN 03/06/18 08/20/18 History Celecoxib 200 mg PO DAILY 03/06/18 08/19/18 History Metoclopramide HCl [Metoclopramide 10 mg PO BID 03/06/18 08/19/18 History 10mg Tablet] Metoprolol Tartrate [Lopressor 50 mg PO DAILY 03/06/18 08/19/18 History 50mg tablet] Morphine Sulfate [Morphine Sulfate 30 mg PO DIRECTED 03/06/18 08/19/18 History ER 30mg Cap] Omeprazole [Omeprazole 20mg 20 mg PO DAILY 03/06/18 08/19/18 History Capsule] Simvastatin 40 mg PO HS 03/06/18 08/19/18 History Topiramate 25 mg PO BID 03/06/18 08/19/18 History Oxybutynin Chloride [Ditropan 5mg 5 mg PO BID 08/11/18 08/19/18 History tablet] Gabapentin [Gabapentin 300mg Cap] 300 mg PO BID #60 cap 08/16/18 08/19/18 Rx Vancomycin HCl [Vancomycin 1000mg 2,250 mg IV Q36H 08/19/18 08/19/18 History Vial] Allergies Allergy/AdvReac Type Severity Reaction Status Date / Time amoxicillin [From Augmentin] Allergy Severe Rash Verified 08/10/18 18:40 clavulanic acid Allergy Severe Rash Verified 08/10/18 18:40 [From Augmentin] clarithromycin [From BIAXIN] Allergy Unknown Verified 03/06/18 22:23 Exam Vital signs and Labs for Last 24 Hours: Temp Pulse Resp BP Pulse Ox 97.6 F 74 17 153/69 H 98 08/25/18 15:42 08/25/18 15:42 08/25/18 15:42 08/25/18 15:42 08/25/18 15:42 Laboratory Results - last 24 hr 08/25/18 07:14: Sodium 144, Potassium 3.8, Chloride 113 H, Carbon Dioxide 19 L, Anion Gap 15.8 H, BUN 36 H, Creatinine 2.79 H, Estimated Creat Clear 19, Estimated GFR 17 L*, Est GFR ( Amer) 21 L, Glucose 91, Calcium 7.9 L 08/25/18 07:14: WBC 11.7 H, RBC 3.43 L, Hgb 9.6 L, Hct 30.0 L, MCV 87.4, MCH 28.1, MCHC 32.1, RDW 16.5, Plt Count 212, MPV 7.5, Neut % (Auto) 78.4, Lymph % (Auto) 11.3, [place] % (Auto) 7.0, Eos % (Au
--- NOTE | 2018-08-25 17:50 | PC.NURSE ---
1600: Called dr ac. pt soiled herself and it go on the cast that was previously placed by surgeon from other hospital. advised him that pt's called the surgeon and surgeon told him that it is okay to take the posterior shell off, but make sure to place a straight leg splint. dr ac asked to consult ortho. dr gould notified and comes to the floor. jennifer from physical therapy came to see wound on heel that was noted to be there from pt's surgeon weeks ago. jennifer recommended dressings to be placed. dressing will be placed when cast fixed and placed. dr gould takes pt's cast off and takes it to her office to do some reconstruction to it (take soiled kerlex and soft roll off and add extra protection to prevent further ulcerations. will assist md in placing cast back on. knee has remained straight through this process and will continue to remain free from bending.
--- NOTE | 2018-08-25 17:53 | P.CONS_ITS ---
*Admission Date: 08/19/18 *Chief complaint: soiled splint *History of present illness: 63yo F s/p L TKA followed by post-operative patellar tendon rupture that was repaired; this subsequently failed and was recently reconstructed with mesh. Her surgeon is with [facility] in [place]. She has a small wound infection over the superior margin of the surgical incision that has grown MRSA; this is being backed with betadine-soaked packing strips daily. Currently on IV ceftriaxone; vancomycin was used until her kidney function declined. She was admitted 08/19/2018 with MRSA bacteremia. Has not had a bowel movement for a month, which changed this afternoon when she had a few large BMs. This soiled her splint so I was called to assist with wound care/splint replacement. Review of Systems - Review of Systems Review of systems:: pertinent systems reviewed and negative unless documented below - *Neurologic Reports weakness, Denies seizure-like activity, Denies localized weakness, Denies seizure-like activity, Denies fainting, Denies tingling, Denies dizziness [facility] History I have reviewed the patient's past medical history: Yes Medical History: Reports:: Cancer (CERVICAL), Gastroesophageal Reflux Disease(GERD), Hyperlipidemia, Hypertension, Migraine, MRSA Denies:: Diabetes Mellitus Type 1, Diabetes Mellitus Type 2 *Have you ever received a pneumonia vaccine?: No *Have you received a flu vaccine this season?: Yes Other Medical History: Reports: Arthritis Laterality Cases: Right: Breast Biopsy, Bilateral: Total Knee Replacement, Other Other Surgeries: Yes: Hysterectomy-Total, Other (Total L Knee February 2018, L knee tendon repair March 2018,) Amputation: No Fractures: No - *Social History Educational Level: Attended College Smoking Status: Never smoker Alcohol Intake: never *Occupational Status:: retired Household Members: spouse *Travel in the last 8 weeks: None - Psychiatric History Expresses thoughts of harming self/others: None Suicide Plan Description: No Plan Family Hx:: Cancer, Heart Attack Meds Home Medications Medication Instructions Recorded Confirmed Type Baclofen [Lioresal 10mg tablet] 10 mg PO TIDP PRN 03/06/18 08/20/18 History Celecoxib 200 mg PO DAILY 03/06/18 08/19/18 History Metoclopramide HCl [Metoclopramide 10 mg PO BID 03/06/18 08/19/18 History 10mg Tablet] Metoprolol Tartrate [Lopressor 50 mg PO DAILY 03/06/18 08/19/18 History 50mg tablet] Morphine Sulfate [Morphine Sulfate 30 mg PO DIRECTED 03/06/18 08/19/18 History ER 30mg Cap] Omeprazole [Omeprazole 20mg 20 mg PO DAILY 03/06/18 08/19/18 History Capsule] Simvastatin 40 mg PO HS 03/06/18 08/19/18 History Topiramate 25 mg PO BID 03/06/18 08/19/18 History Oxybutynin Chloride [Ditropan 5mg 5 mg PO BID 08/11/18 08/19/18 History tablet] Gabapentin [Gabapentin 300mg Cap] 300 mg PO BID #60 cap 08/16/18 08/19/18 Rx Vancomycin HCl [Vancomycin 1000mg 2,250 mg IV Q36H 08/19/18 08/19/18 History Vial] Allergies Allergy/AdvReac Type Severity Reaction Status Date / Time amoxicillin [From Augmentin] Allergy Severe Rash Verified 08/10/18 18:40 clavulanic acid Allergy Severe Rash Verified 08/10/18 18:40 [From Augmentin] clarithromycin [From BIAXIN] Allergy Unknown Verified 03/06/18 22:23 Exam Vital signs and Labs for Last 24 Hours:
--- NOTE | 2018-08-25 17:54 | PC.NURSE ---
photo consent obtained- verbal per pt and written per . photo's of known ulceration to proximal surgical site was taken and picture of heel was taken as well. removed the tape that was holding parekh to pt's leg in order to move parekh to other side of pt and out of way of new casting and a new ulceration on pt's left upper/medial thigh was noted. presumable pressure ulcer from the tubing of pt's parekh. this time the parekh was not anchored/taped to leg to prevent another break down and staff is made aware of this to be cautious in moving and turning pt- to have enough slack to prevent parekh from being pulled.
[2018-08-25 20:00] VITALS: BP 148/67; PULSE 77; RESP 20; TEMP 36.8; O2SAT 98
--- NOTE | 2018-08-26 03:08 | PC.NURSE ---
PT. ABLE TO STATE NAME, , PLACE AND YEAR. PT. C/O L HEEL PAIN AT BEGINNING OF SHIFT; TX WITH TYLENOL PER JUN; EFFECTIVENESS NOTED. PT. LATER C/O SHAKINESS IN LEG ; ADMINISTERED BACLOFEN PER JUN; EFFECTIVENESS NOTED. PT. HAD A MODERATE, SOFT BM. FC IN PLACE SHOWING NO S/S OF INFECTION AT SITE; URINE PALE YELLOW IN COLOR WITH SEDIMENT NOTED. +3 NONPITTING EDEMA NOTED TO ALL EXTREMITIES. CAST IN PLACE TO LLE; BILAT. TOES HAVE EQUAL WARMTH, MOVEMENT, AND SENSATION. PT. HAS NOT C/O N/V, SOB OR DIZZINESS THIS SHIFT. PICC PATENT AND INFUSING. VSS. WILL CONTINUE TO MONITOR.
[2018-08-26 04:00] VITALS: BP 135/61; PULSE 76; RESP 18; TEMP 36.8; O2SAT 96
[2018-08-26 05:00] VITALS: BMI 51.8
[2018-08-26 06:34] LABS: Basophils % 0.2 % (0.1-2.0); Eosinophils # 0.6 K/mm3 (0.0-0.4); Eosinophils % 6.5 % (0.1-12.0); Hematocrit 28.2 % (37.0-47.0); Lymphocytes # 1.2 K/mm3 (0.7-4.5); Lymphocytes % 13.6 % (10-50); Mean Corpuscular Hemoglobin 28.1 pg (27.0-31.2); Mean Corpuscular Volume 87.8 fl (81-99); Mean Platelet Volume 7.4 fl (7.4-10.4); Monocytes # 0.6 K/mm3 (0.1-1.0); Monocytes % 7.2 % (1.7-9.3); Neutrophils # 6.5 K/mm3 (1.8-7.8); Neutrophils % 72.5 % (37.0-80.0); Platelet Count 200 K/mm3 (142-424); Red Blood Count 3.22 M/mm3 (4.20-5.40); Red Cell Distribution Width 16.6 % (11.5-17.5); White Blood Count 8.9 K/mm3 (4.8-10.8)
[2018-08-26 06:42] LABS: Alanine Aminotransferase 10 U/L (12-78); Albumin Level 1.2 gm/dL (3.4-5.0); Albumin/Globulin Ratio 0.4 (1.1-1.8); Alkaline Phosphatase 72 U/L (46-116); Anion Gap 14.6 mEq/L (5-15); Aspartate Amino Transferase 15 U/L (15-37); Bilirubin,Total 0.3 mg/dL (0.2-1.0); Blood Urea Nitrogen 36 mg/dL (7-18); Calcium 7.8 mg/dL (8.5-10.1); Carbon Dioxide 20 mmol/L (21.0-32.0); Chloride 114 mmol/L (98-107); Creatinine Clearance Estimated 19 mL/min (50-200); Creatinine,Serum 2.81 mg/dL (0.55-1.02); Estimated Glomerular Filt Rate 17 ml/min (>60); GFR (African American) 21 ML/MIN (>60); Globulin 3.3 gm/dl (1.3-3.2); Glucose 94 mg/dL (74-106); Potassium 3.6 mmoL/L (3.5-5.1); Sodium 145 mmol/L (136-145); Total Protein,Serum 4.5 gm/dL (6.4-8.2)
[2018-08-26 07:36] VITALS: BP 166/78; PULSE 78; RESP 16; TEMP 36.5; O2SAT 96
--- NOTE | 2018-08-26 08:02 | HMH.ACPN2 ---
<Carol Timmons - Last Filed: 08/26/18 08:02> Internal Medicine - PN: Subj *Date: 08/26/18 *Time: 08:02 Interval history: Patient states she is feeling short of breath this morning. She states this started around 3 AM. She is not wheezing or coughing. She states her left hand is very swollen. She denies any pain and slept off and on. She ate very little breakfast. Exam Vital signs and Labs for Last 24 Hours: Temp Pulse Resp BP Pulse Ox 97.7 F 78 16 166/78 H 96 08/26/18 07:36 08/26/18 07:36 08/26/18 07:36 08/26/18 07:36 08/26/18 07:36 Laboratory Results - last 24 hr 08/25/18 07:14: Sodium 144, Potassium 3.8, Chloride 113 H, Carbon Dioxide 19 L, Anion Gap 15.8 H, BUN 36 H, Creatinine 2.79 H, Estimated Creat Clear 19, Estimated GFR 17 L*, Est GFR ( Amer) 21 L, Glucose 91, Calcium 7.9 L 08/25/18 09:35: Vancomycin Trough 25.4 H 08/25/18 09:35: Sodium 144, Potassium 3.7, Chloride 114 H, Carbon Dioxide 20 L, Anion Gap 13.7, BUN 36 H, Creatinine 2.86 H, Estimated Creat Clear 19, Estimated GFR 17 L*, Est GFR ( Amer) 20 L, Glucose 90, Calcium 7.7 L 08/26/18 06:13: WBC 8.9, RBC 3.22 L, Hgb 9.0 L, Hct 28.2 L, MCV 87.8, MCH 28.1, MCHC 32.0, RDW 16.6, Plt Count 200, MPV 7.4, Neut % (Auto) 72.5, Lymph % (Auto) 13.6, [place] % (Auto) 7.2, Eos % (Auto) 6.5, Baso % (Auto) 0.2, Neut # (Auto) 6.5, Lymph # (Auto) 1.2, [place] # (Auto) 0.6, Eos # (Auto) 0.6 H, Baso # (Auto) 0.0 08/26/18 06:13: Sodium 145, Potassium 3.6, Chloride 114 H, Carbon Dioxide 20 L, Anion Gap 14.6, BUN 36 H, Creatinine 2.81 H, Estimated Creat Clear 19, Estimated GFR 17 L*, Est GFR ( Amer) 21 L, Glucose 94, Calcium 7.8 L, Total Bilirubin 0.3, AST 15, ALT 10 L, Alkaline Phosphatase 72, Total Protein 4.5 L, Albumin 1.2 L, Globulin 3.3 H, Albumin/Globulin Ratio 0.4 L I & O for Last 24 hours: Intake & Output 08/23/18 08/24/18 08/25/18 08/26/18 11:59 11:59 11:59 11:59 Intake Total 5129 / 5129 2260 / 2260 1194 / 1194 3545 / 3545 Output Total 800 / 800 2550 / 2550 3000 / 3000 3900 / 3900 Balance 4329 / 4329 -290 / -290 -1806 / -1806 -355 / -355 Weight 315 lb 7.704 oz 324 lb 1.272 oz 323 lb 3 oz 321 lb 3.416 oz - Constitutional no acute distress - *Routine Respiratory Exam Present: decreased breath sounds. Absent: wheezes - *Routine Cardiovascular Exam Present: RRR - *Routine Abdominal Exam Present: soft, normoactive bowel sounds. Absent: tenderness - *Routine Extremities Exam Present: edema (bilateral LE's, dessing on left leg, left hand edematous) - *Routine Skin Exam Present: warm. Absent: rash - *Routine Neurological Exam Present: alert, oriented X3 Assessment and Plan (1) Volume depletion Current visit: Yes Status: Acute Category: Medical Code(s): E86.9 - Volume depletion, unspecified (2) Hypotension Current visit: Yes Status: Acute Category: Medical Code(s): I95.9 - Hypotension, unspecified (3) Enterococcus UTI Current visit: Yes Status: Acute Category: Medical Code(s): N39.0 - Urinary tract infection, site not specified; B95.2 - Enterococcus as the cause of diseases classified elsewhere (4) MRSA bacteremia Current visit: Yes Status: Acute Category: Medical Code(s): R78.81 - Bacteremia (5) Weakness generalized Current visit: Yes Status: Acute Category: Medical Code(s): R53.1 - Weakness (6) Post op infection Current visit: Yes Status: Acute Category: Medical Code(s): T81.40XA - Infection following a procedure, unspecified, initial encounter (7) Anemia Current visit: Yes Status: Acute Category: Medical Code(s): D64.9 - Anemia, unspecified (8) Chronic renal failure, stage 3 (moderate) Current visit: Yes Status: Chronic Category: Medical Code(s): N18.3 - Chronic kidney disease, stage 3 (moderate) (9) Status post knee replacement Current visit: Yes Status: Chronic Category: Surgical Code(s): Z96.659 - Presence of unspecified artificial knee
--- NOTE | 2018-08-26 08:06 | P.PN_ITS ---
<Carol Timmons - Last Filed: 08/26/18 08:02> Internal Medicine - PN: Subj *Date: 08/26/18 *Time: 08:02 Interval history: Patient states she is feeling short of breath this morning. She states this started around 3 AM. She is not wheezing or coughing. She states her left hand is very swollen. She denies any pain and slept off and on. She ate very little breakfast. Exam Vital signs and Labs for Last 24 Hours: Temp Pulse Resp BP Pulse Ox 97.7 F 78 16 166/78 H 96 08/26/18 07:36 08/26/18 07:36 08/26/18 07:36 08/26/18 07:36 08/26/18 07:36 Laboratory Results - last 24 hr 08/25/18 07:14: Sodium 144, Potassium 3.8, Chloride 113 H, Carbon Dioxide 19 L, Anion Gap 15.8 H, BUN 36 H, Creatinine 2.79 H, Estimated Creat Clear 19, Estimated GFR 17 L*, Est GFR ( Amer) 21 L, Glucose 91, Calcium 7.9 L 08/25/18 09:35: Vancomycin Trough 25.4 H 08/25/18 09:35: Sodium 144, Potassium 3.7, Chloride 114 H, Carbon Dioxide 20 L, Anion Gap 13.7, BUN 36 H, Creatinine 2.86 H, Estimated Creat Clear 19, Estimated GFR 17 L*, Est GFR ( Amer) 20 L, Glucose 90, Calcium 7.7 L 08/26/18 06:13: WBC 8.9, RBC 3.22 L, Hgb 9.0 L, Hct 28.2 L, MCV 87.8, MCH 28.1, MCHC 32.0, RDW 16.6, Plt Count 200, MPV 7.4, Neut % (Auto) 72.5, Lymph % (Auto) 13.6, [place] % (Auto) 7.2, Eos % (Auto) 6.5, Baso % (Auto) 0.2, Neut # (Auto) 6.5, Lymph # (Auto) 1.2, [place] # (Auto) 0.6, Eos # (Auto) 0.6 H, Baso # (Auto) 0.0 08/26/18 06:13: Sodium 145, Potassium 3.6, Chloride 114 H, Carbon Dioxide 20 L, Anion Gap 14.6, BUN 36 H, Creatinine 2.81 H, Estimated Creat Clear 19, Estimated GFR 17 L*, Est GFR ( Amer) 21 L, Glucose 94, Calcium 7.8 L, Total Bilirubin 0.3, AST 15, ALT 10 L, Alkaline Phosphatase 72, Total Protein 4.5 L, Albumin 1.2 L, Globulin 3.3 H, Albumin/Globulin Ratio 0.4 L I & O for Last 24 hours: Intake & Output 08/23/18 08/24/18 08/25/18 08/26/18 11:59 11:59 11:59 11:59 Intake Total 5129 / 5129 2260 / 2260 1194 / 1194 3545 / 3545 Output Total 800 / 800 2550 / 2550 3000 / 3000 3900 / 3900 Balance 4329 / 4329 -290 / -290 -1806 / -1806 -355 / -355 Weight 315 lb 7.704 oz 324 lb 1.272 oz 323 lb 3 oz 321 lb 3.416 oz - Constitutional no acute distress - *Routine Respiratory Exam Present: decreased breath sounds. Absent: wheezes - *Routine Cardiovascular Exam Present: RRR - *Routine Abdominal Exam Present: soft, normoactive bowel sounds. Absent: tenderness - *Routine Extremities Exam Present: edema (bilateral LE's, dessing on left leg, left hand edematous) - *Routine Skin Exam Present: warm. Absent: rash - *Routine Neurological Exam Present: alert, oriented X3 Assessment and Plan (1) Volume depletion Current visit: Yes Status: Acute Category: Medical Code(s): E86.9 - Volume depletion, unspecified (2) Hypotension Current visit: Yes Status: Acute Category: Medical Code(s): I95.9 - Hypotension, unspecified (3) Enterococcus UTI Current visit: Yes Status: Acute Category: Medical Code(s): N39.0 - Urinary tract infection, site not specified; B95.2 - Enterococcus as the cause of diseases classified elsewhere (4) MRSA bacteremia Current visit: Yes Status: Acute Category: Medical Code(s): R78.81 - Bacteremia (5) Weakness generalized Current visit: Yes Status: Acute Category: Medical Code(s): R53.1 - Weakness (6) Post op infection Current visi
--- NOTE | 2018-08-26 08:07 | XR_ITS ---
XR chest portable HISTORY: Dyspnea ITS.REASON: SOA ORDERING PHYSICIAN: Juan José Kendall MD PATIENT AGE: 63 years Technique: AP portable upright chest COMPARISON: AP portable upright chest 1719 & 08/11/2018 FINDINGS: PICC line enters from the left arm transversing the left subclavian passing through the left brachiocephalic vein with tip just entering the SVC. PICC line stable since 08/19/2018 PCXR . The lungs are well expanded clear with no active disease. No lesions evident. Today's palliative care coordinator technique today , along with slightly lordotic projection healing overlapping shadows, likely accentuates the markings at the suprahilar region--note subtle accentuation of markings just inferior to the just beneath the head of clavicle bilaterally. I doubt this is of significance. Doubt acute infiltrate but of respiration symptoms develop consider follow-up 2 view chest. Moderate large hiatal hernia noted-posteriorly behind the heart shadow. This hiatal hernia Measures over 10 cm diameter The heart appears normal in size. [place]a and mediastinal structures satisfactory. No pleural effusion or pneumothorax. Chest wall unremarkable on this portable AP view. IMPRESSION:............ \ Nothing definitely acute. Note subtle accentuation of markings upper lobe just inferior to the medial right & left clavicle most likely reflect technique in the lordotic projection. Doubt infiltrate. However if symptoms should progress consider follow-up PICC line stable
--- NOTE | 2018-08-26 10:30 | HMH.PHACONS ---
- Pharmacy Consult Date: 08/26/18 Time: 10:30 Referring provider: DR. SHEPARD Reason for Consult:: VANCOMYCIN TROUGH LEVEL Allergies and ADEs:: Allergies Allergy/AdvReac Type Severity Reaction Status Date / Time amoxicillin [From Augmentin] Allergy Severe Rash Verified 08/10/18 18:40 clavulanic acid Allergy Severe Rash Verified 08/10/18 18:40 [From Augmentin] clarithromycin [From BIAXIN] Allergy Unknown Verified 03/06/18 22:23 Home Medications:: Home Medications Medication Instructions Recorded Confirmed Type Baclofen [Lioresal 10mg tablet] 10 mg PO TIDP PRN 03/06/18 08/20/18 History Celecoxib 200 mg PO DAILY 03/06/18 08/19/18 History Metoclopramide HCl [Metoclopramide 10 mg PO BID 03/06/18 08/19/18 History 10mg Tablet] Metoprolol Tartrate [Lopressor 50 mg PO DAILY 03/06/18 08/19/18 History 50mg tablet] Morphine Sulfate [Morphine Sulfate 30 mg PO DIRECTED 03/06/18 08/19/18 History ER 30mg Cap] Omeprazole [Omeprazole 20mg 20 mg PO DAILY 03/06/18 08/19/18 History Capsule] Simvastatin 40 mg PO HS 03/06/18 08/19/18 History Topiramate 25 mg PO BID 03/06/18 08/19/18 History Oxybutynin Chloride [Ditropan 5mg 5 mg PO BID 08/11/18 08/19/18 History tablet] Gabapentin [Gabapentin 300mg Cap] 300 mg PO BID #60 cap 08/16/18 08/19/18 Rx Vancomycin HCl [Vancomycin 1000mg 2,250 mg IV Q36H 08/19/18 08/19/18 History Vial] Height: 1.68 m Weight: 145.7 kg Laboratory Results:: Laboratory Results - last 24 hr 08/26/18 06:13: WBC 8.9, RBC 3.22 L, Hgb 9.0 L, Hct 28.2 L, MCV 87.8, MCH 28.1, MCHC 32.0, RDW 16.6, Plt Count 200, MPV 7.4, Neut % (Auto) 72.5, Lymph % (Auto) 13.6, [place] % (Auto) 7.2, Eos % (Auto) 6.5, Baso % (Auto) 0.2, Neut # (Auto) 6.5, Lymph # (Auto) 1.2, [place] # (Auto) 0.6, Eos # (Auto) 0.6 H, Baso # (Auto) 0.0 08/26/18 06:13: Sodium 145, Potassium 3.6, Chloride 114 H, Carbon Dioxide 20 L, Anion Gap 14.6, BUN 36 H, Creatinine 2.81 H, Estimated Creat Clear 19, Estimated GFR 17 L*, Est GFR ( Amer) 21 L, Glucose 94, Calcium 7.8 L, Total Bilirubin 0.3, AST 15, ALT 10 L, Alkaline Phosphatase 72, Total Protein 4.5 L, Albumin 1.2 L, Globulin 3.3 H, Albumin/Globulin Ratio 0.4 L 08/26/18 09:15: Vancomycin Trough 22.0 H Medical History: Reports:: Cancer (CERVICAL), Gastroesophageal Reflux Disease(GERD), Hyperlipidemia, Hypertension, Migraine, MRSA Denies:: Diabetes Mellitus Type 1, Diabetes Mellitus Type 2 Assessment and Plan (1) Volume depletion Current visit: Yes Status: Acute Category: Medical Code(s): E86.9 - Volume depletion, unspecified (2) Hypotension Current visit: Yes Status: Acute Category: Medical Code(s): I95.9 - Hypotension, unspecified (3) Enterococcus UTI Current visit: Yes Status: Acute Category: Medical Code(s): N39.0 - Urinary tract infection, site not specified; B95.2 - Enterococcus as the cause of diseases classified elsewhere (4) MRSA bacteremia Current visit: Yes Status: Acute Category: Medical Code(s): R78.81 - Bacteremia (5) Weakness generalized Current visit: Yes Status: Acute Category: Medical Code(s): R53.1 - Weakness (6) Post op infection Current visit: Yes Status: Acute Category: Medical Code(s): T81.40XA - Infection following a procedure, unspecified, initial encounter (7) Anemia Current visit: Yes Status: Acute Category: Medical Code(s): D64.9 - Anemia, unspecified (8) Chronic renal failure, stage 3 (moderate) Current visit: Yes Status: Chronic Category: Medical Code(s): N18.3 - Chronic kidney disease, stage 3 (moderate) (9) Status post knee replacement Current visit: Yes Status: Chronic Category: Surgical Code(s): Z96.659 - Presence of unspecified artificial knee joint (10) Status post tendon repair Current visit: Yes Status: Chronic Category: Surgical Code(s): Z98.890 - Other specified postprocedural states (11) Mobility impaired Current visit: No Status: Acute
--- NOTE | 2018-08-26 11:40 | DIET.NUTRFU ---
Patient is more communicative, she is able to voice food preferences. She is enjoying the [employer] Breeze and the Chocolate Ensure. She did not get the fortified shake until late last night but very much enjoyed this. Will alternate flavors on the protein shakes. Discussed other high protein food options. Patient is willing to try some boiled eggs for breakfast and a peanutbutter/jelly sandwich as a snack. She ate 100% of dinner last night.
[2018-08-26 15:31] VITALS: BP 151/64; PULSE 73; RESP 17; TEMP 36.7; O2SAT 97
[2018-08-26 20:00] VITALS: BP 138/62; PULSE 69; RESP 18; TEMP 36.8; O2SAT 96
[2018-08-26 20:46] VITALS: O2SAT 96
[2018-08-27 04:00] VITALS: BP 121/56; PULSE 76; RESP 20; TEMP 36.8; O2SAT 96
[2018-08-27 04:31] VITALS: BMI 50.8
--- NOTE | 2018-08-27 04:48 | PC.NURSE ---
PATIENT HAS SLEPT ON AND OFF THIS SHIFT. SHE HAS C/O OF SOME SOA WITH NO DISTRESS NOTED. OXYGEN SATURATION HAS REMAINED ~95%. SHE DID C/O HEADACHE X2 AND RECEIVED PRN TYLENOL. SHE ALSO RECEIVED PRN ZOFRAN X1 FOR AND EPISODE OF NAUSEA AT BEGINNING OF SHIFT. SWELLING CONTINUES IN ALL 4 EXTREMITIES. LEFT ARM ELEVATED ON PILLOWS D/T EDEMA. REAL CONTINUES TO DRAIN CLEAR YELLOW URINE TO BEDSIDE DRAIN. NO ACUTE CHANGES NOTED SINCE PREVIOUS ASSESSMENT. NO OTHER PROBLEMS NOTED AT THIS TIME. VSS. WILL CONTINUE TO MONITOR.
--- NOTE | 2018-08-27 07:24 | PC.NURSE ---
REPORTED TO Eris NGUYỄN
[2018-08-27 07:48] LABS: Basophils % 0.3 % (0.1-2.0); Eosinophils # 0.6 K/mm3 (0.0-0.4); Eosinophils % 8.6 % (0.1-12.0); Hematocrit 28.6 % (37.0-47.0); Hemoglobin 9.4 g/dL (12.2-16.2); Lymphocytes # 1.3 K/mm3 (0.7-4.5); Lymphocytes % 17.9 % (10-50); Mean Corpuscular HGB Conc 32.9 g/dL (31.8-35.4); Mean Corpuscular Hemoglobin 28.8 pg (27.0-31.2); Mean Corpuscular Volume 87.6 fl (81-99); Mean Platelet Volume 7.6 fl (7.4-10.4); Monocytes # 0.5 K/mm3 (0.1-1.0); Monocytes % 6.2 % (1.7-9.3); Neutrophils # 4.8 K/mm3 (1.8-7.8); Platelet Count 175 K/mm3 (142-424); Red Blood Count 3.27 M/mm3 (4.20-5.40); White Blood Count 7.2 K/mm3 (4.8-10.8)
[2018-08-27 07:53] VITALS: BP 147/72; PULSE 81; RESP 18; TEMP 36.8; O2SAT 93
[2018-08-27 07:59] LABS: Anion Gap 14.3 mEq/L (5-15); Blood Urea Nitrogen 37 mg/dL (7-18); Carbon Dioxide 21 mmol/L (21.0-32.0); Chloride 112 mmol/L (98-107); Creatinine Clearance Estimated 18 mL/min (50-200); Creatinine,Serum 3.02 mg/dL (0.55-1.02); Estimated Glomerular Filt Rate 16 ml/min (>60); GFR (African American) 19 ML/MIN (>60); Glucose 107 mg/dL (74-106); Potassium 3.3 mmoL/L (3.5-5.1); Sodium 144 mmol/L (136-145)
--- NOTE | 2018-08-27 08:17 | HMH.ACPN2 ---
Internal Medicine - PN: Subj *Date: 08/27/18 *Time: 08:47 Interval history: States she did not rest as well last night. She still has subjective feelings of shortness of breath. Chest x-ray yesterday was clear. Room air sats remain in the mid 90s. Nursing staff started her on oxygen for comfort even though her O2 sats have been normal. She continues with good diuresis and her weight is down 6 pounds this morning. Exam Vital signs and Labs for Last 24 Hours: Temp Pulse Resp BP Pulse Ox 98.2 F 81 18 147/72 H 93 L 08/27/18 07:53 08/27/18 07:53 08/27/18 07:53 08/27/18 07:53 08/27/18 07:53 Laboratory Results - last 24 hr 08/26/18 09:15: Vancomycin Trough 22.0 H 08/27/18 07:35: WBC 7.2, RBC 3.27 L, Hgb 9.4 L, Hct 28.6 L, MCV 87.6, MCH 28.8, MCHC 32.9, RDW 17.0, Plt Count 175, MPV 7.6, Neut % (Auto) 67.0, Lymph % (Auto) 17.9, [place] % (Auto) 6.2, Eos % (Auto) 8.6, Baso % (Auto) 0.3, Neut # (Auto) 4.8, Lymph # (Auto) 1.3, [place] # (Auto) 0.5, Eos # (Auto) 0.6 H, Baso # (Auto) 0.0 08/27/18 07:35: Sodium 144, Potassium 3.3 L, Chloride 112 H, Carbon Dioxide 21, Anion Gap 14.3, BUN 37 H, Creatinine 3.02 H, Estimated Creat Clear 18, Estimated GFR 16 L*, Est GFR ( Amer) 19 L*, Glucose 107 H, Calcium 8.0 L I & O for Last 24 hours: Intake & Output 08/24/18 08/25/18 08/26/18 08/27/18 11:59 11:59 11:59 11:59 Intake Total 2260 / 2260 1194 / 1194 3545 / 3545 720 / 720 Output Total 2550 / 2550 3000 / 3000 3900 / 3900 4225 / 4225 Balance -290 / -290 -1806 / -1806 -355 / -355 -3505 / -3505 Weight 324 lb 1.272 oz 323 lb 3 oz 321 lb 3.416 oz 315 lb 0.649 oz Microbiology Reports for the Last 24 Hours: Microbiology 08/19/18 14:05 Blood Blood Culture - Final Staph hominis ssp hominis 08/19/18 14:05 Blood Blood Culture - Final Enterococcus faecalis Staph hominis ssp hominis Narrative: She appears in no respiratory distress. Color is normal. Lungs are clear to auscultation. Heart is regular. Abdomen is soft and nondistended. No tenderness. The edema in her extremities has improved. There is no calf tenderness. Assessment and Plan (1) Volume depletion Current visit: Yes Status: Acute Category: Medical Code(s): E86.9 - Volume depletion, unspecified (2) Hypotension Current visit: Yes Status: Acute Category: Medical Code(s): I95.9 - Hypotension, unspecified (3) Enterococcus UTI Current visit: Yes Status: Acute Category: Medical Code(s): N39.0 - Urinary tract infection, site not specified; B95.2 - Enterococcus as the cause of diseases classified elsewhere (4) MRSA bacteremia Current visit: Yes Status: Acute Category: Medical Code(s): R78.81 - Bacteremia (5) Weakness generalized Current visit: Yes Status: Acute Category: Medical Code(s): R53.1 - Weakness (6) Post op infection Current visit: Yes Status: Acute Category: Medical Code(s): T81.40XA - Infection following a procedure, unspecified, initial encounter (7) Anemia Current visit: Yes Status: Acute Category: Medical Code(s): D64.9 - Anemia, unspecified (8) Chronic renal failure, stage 3 (moderate) Current visit: Yes Status: Chronic Category: Medical Code(s): N18.3 - Chronic kidney disease, stage 3 (moderate) (9) Status post knee replacement Current visit: Yes Status: Chronic Category: Surgical Code(s): Z96.659 - Presence of unspecified artificial knee joint (10) Status post tendon repair Current visit: Yes Status: Chronic Category: Surgical Code(s): Z98.890 - Other specified postprocedural states (11) Mobility impaired Current visit: No Status: Acute Category: Medical Code(s): Z74.09 - Other reduced mobility (12) Postoperative wound infection Current visit: No Status: Acute Category: Medical Code(s): T81.49XA - Infection following a procedure, other surgical s
[2018-08-27 08:24] LABS: Microscopic,Cath URINE MICROSCOPIC (MICROSCOPIC)
[2018-08-27 08:39] LABS: Appearance,Urine/Cath CLEAR (Clear); Bilirubin,Cath Negative (Negative); Blood, Urine/Cath 3+ (Negative); Color,Urine/Cath YELLOW (Yellow); Glucose,Urine/Cath (UA) Negative (Negative); Ketones,Urine/Cath Negative (Negative); Leukocyte Esterase,Cath 2+ (Negative); Nitrate,Cath Negative (Negative); PH,Urine/Cath 5.5 (5.0-8.5); Protein,Urine/Cath 1+ (Negative); Specific Gravity, Urine/Cath 1.015 (1.005-1.030); Urobilinogen,Cath 0.2 EU/dl (0.2)
[2018-08-27 08:40] LABS: Bacteria,Urine/Cath TRACE /lpf
[2018-08-27 09:30] LABS: Vancomycin,Trough 21.1 mcg/ml (10.0-20.0)
--- NOTE | 2018-08-27 11:09 | HMH.PHACONS ---
- Pharmacy Consult Date: 08/27/18 Time: 11:09 Referring provider: DR. SHEPARD Reason for Consult:: VANCOMYCIN LEVEL Allergies and ADEs:: Allergies Allergy/AdvReac Type Severity Reaction Status Date / Time amoxicillin [From Augmentin] Allergy Severe Rash Verified 08/10/18 18:40 clavulanic acid Allergy Severe Rash Verified 08/10/18 18:40 [From Augmentin] clarithromycin [From BIAXIN] Allergy Unknown Verified 03/06/18 22:23 Home Medications:: Home Medications Medication Instructions Recorded Confirmed Type Baclofen [Lioresal 10mg tablet] 10 mg PO TIDP PRN 03/06/18 08/20/18 History Celecoxib 200 mg PO DAILY 03/06/18 08/19/18 History Metoclopramide HCl [Metoclopramide 10 mg PO BID 03/06/18 08/19/18 History 10mg Tablet] Metoprolol Tartrate [Lopressor 50 mg PO DAILY 03/06/18 08/19/18 History 50mg tablet] Morphine Sulfate [Morphine Sulfate 30 mg PO DIRECTED 03/06/18 08/19/18 History ER 30mg Cap] Omeprazole [Omeprazole 20mg 20 mg PO DAILY 03/06/18 08/19/18 History Capsule] Simvastatin 40 mg PO HS 03/06/18 08/19/18 History Topiramate 25 mg PO BID 03/06/18 08/19/18 History Oxybutynin Chloride [Ditropan 5mg 5 mg PO BID 08/11/18 08/19/18 History tablet] Gabapentin [Gabapentin 300mg Cap] 300 mg PO BID #60 cap 08/16/18 08/19/18 Rx Vancomycin HCl [Vancomycin 1000mg 2,250 mg IV Q36H 08/19/18 08/19/18 History Vial] Height: 1.68 m Weight: 142.9 kg Laboratory Results:: Laboratory Results - last 24 hr 08/26/18 08:05: Urine Color Yellow, Urine Appearance Clear, Urine pH 5.5, Ur Specific [place] 1.015, Urine Protein 1+, Urine Glucose (UA) Negative, Urine Ketones Negative, Urine Blood 3+, Urine Nitrate Negative, Urine Bilirubin Negative, Urine Urobilinogen 0.2, Ur Leukocyte Esterase 2+ A, Urine RBC 5-10, Urine WBC 5-10, Urine Bacteria Trace 08/27/18 07:35: Vancomycin Trough 21.1 H 08/27/18 07:35: WBC 7.2, RBC 3.27 L, Hgb 9.4 L, Hct 28.6 L, MCV 87.6, MCH 28.8, MCHC 32.9, RDW 17.0, Plt Count 175, MPV 7.6, Neut % (Auto) 67.0, Lymph % (Auto) 17.9, Cottle % (Auto) 6.2, Eos % (Auto) 8.6, Baso % (Auto) 0.3, Neut # (Auto) 4.8, Lymph # (Auto) 1.3, Cottle # (Auto) 0.5, Eos # (Auto) 0.6 H, Baso # (Auto) 0.0 08/27/18 07:35: Sodium 144, Potassium 3.3 L, Chloride 112 H, Carbon Dioxide 21, Anion Gap 14.3, BUN 37 H, Creatinine 3.02 H, Estimated Creat Clear 18, Estimated GFR 16 L*, Est GFR ( Amer) 19 L*, Glucose 107 H, Calcium 8.0 L Medical History: Reports:: Cancer (CERVICAL), Gastroesophageal Reflux Disease(GERD), Hyperlipidemia, Hypertension, Migraine, MRSA Denies:: Diabetes Mellitus Type 1, Diabetes Mellitus Type 2 Assessment and Plan (1) Volume depletion Current visit: Yes Status: Acute Category: Medical Code(s): E86.9 - Volume depletion, unspecified (2) Hypotension Current visit: Yes Status: Acute Category: Medical Code(s): I95.9 - Hypotension, unspecified (3) Enterococcus UTI Current visit: Yes Status: Acute Category: Medical Code(s): N39.0 - Urinary tract infection, site not specified; B95.2 - Enterococcus as the cause of diseases classified elsewhere (4) MRSA bacteremia Current visit: Yes Status: Acute Category: Medical Code(s): R78.81 - Bacteremia (5) Weakness generalized Current visit: Yes Status: Acute Category: Medical Code(s): R53.1 - Weakness (6) Post op infection Current visit: Yes Status: Acute Category: Medical Code(s): T81.40XA - Infection following a procedure, unspecified, initial encounter (7) Anemia Current visit: Yes Status: Acute Category: Medical Code(s): D64.9 - Anemia, unspecified (8) Chronic renal failure, stage 3 (moderate) Current visit: Yes Status: Chronic Category: Medical Code(s): N18.3 - Chronic kidney disease, stage 3 (moderate) (9) Status post knee replacement Current visit: Yes Status: Chronic Category: Surgical Code(s): Z96.659 - Presence of unspecified artificial knee joint (10) Status pos
[2018-08-27 15:40] VITALS: BP 134/59; PULSE 63; RESP 17; TEMP 37.3; O2SAT 97
--- NOTE | 2018-08-27 16:41 | PC.NURSE ---
pt has had no changes from previous assessment. parekh has been draining yellow urine. reposition parekh throughout shift to relieve pressure on skin. pt is still edematous but finger do appear to be normal at this time. dressing changed this shift. pt reported nausea x1 and prn med given with relief. picc in left upper arm in place and patent. v/s/s. call light in reach. will continue to monitor pt condition.
[2018-08-27 19:48] VITALS: O2SAT 97
[2018-08-27 19:54] VITALS: BP 132/67; PULSE 67; RESP 20; TEMP 36.7; O2SAT 95
[2018-08-28 04:00] VITALS: BP 125/73; PULSE 83; RESP 20; TEMP 36.6; O2SAT 93; BMI 51.5
--- NOTE | 2018-08-28 04:29 | PC.NURSE ---
PATIENT SEEMS TO HAVE SLEPT BETTER TONIGHT THAN THE PREVIOUS NIGHT. SHE C/O HEARTBURN EARLIER IN SHIFT; ORDER OBTAINED FOR MAALOX WHICH HELPED WITH ONE DOSE. PATIENT WAS ALSO GIVEN TYLENOL FOR GENERAL DISCOMFORT AND ZOFRAN X1 FOR NAUSEA WITH HS MEDS. SWELLING IN BUE HAS IMPROVED. REAL CONTINUES DRAINING TO BSD. NO ACUTE CHANGES NOTED SINCE PREVIOUS ASSESSMENT. PATIENT CURRENTLY IN BED SLEEPING WITH NO OTHER PROBLEMS NOTED AT THIS TIME. VSS. WILL CONTINUE TO MONITOR.
--- NOTE | 2018-08-28 06:00 | PC.NURSE ---
AM LABS DRAWN FROM PICC LINE AND SENT TO LAB AT THIS TIME
--- NOTE | 2018-08-28 07:22 | PC.NURSE ---
REPORTED TO Eris NGUYỄN
[2018-08-28 07:50] LABS: Anion Gap 14.7 mEq/L (5-15); Blood Urea Nitrogen 37 mg/dL (7-18); Calcium 7.8 mg/dL (8.5-10.1); Carbon Dioxide 21 mmol/L (21.0-32.0); Chloride 113 mmol/L (98-107); Creatinine Clearance Estimated 18 mL/min (50-200); Creatinine,Serum 2.91 mg/dL (0.55-1.02); Estimated Glomerular Filt Rate 16 ml/min (>60); GFR (African American) 20 ML/MIN (>60); Glucose 90 mg/dL (74-106); Potassium 3.7 mmoL/L (3.5-5.1); Sodium 145 mmol/L (136-145)
[2018-08-28 08:00] VITALS: BP 134/68; PULSE 71; RESP 16; TEMP 36.6; O2SAT 94
--- NOTE | 2018-08-28 11:04 | HMH.ACPN2 ---
Internal Medicine - PN: Subj *Date: 08/28/18 *Time: 11:32 Interval history: She rested better last night. No further complaints of shortness of breath. She is eating a little better and and taking the protein supplements. Exam Vital signs and Labs for Last 24 Hours: Temp Pulse Resp BP Pulse Ox 97.9 F 71 16 134/68 94 L 08/28/18 08:00 08/28/18 08:00 08/28/18 08:00 08/28/18 08:00 08/28/18 08:00 Laboratory Results - last 24 hr 08/28/18 06:30: Sodium 145, Potassium 3.7, Chloride 113 H, Carbon Dioxide 21, Anion Gap 14.7, BUN 37 H, Creatinine 2.91 H, Estimated Creat Clear 18, Estimated GFR 16 L*, Est GFR ( Amer) 20 L, Glucose 90, Calcium 7.8 L I & O for Last 24 hours: Intake & Output 08/25/18 08/26/18 08/27/18 08/28/18 11:59 11:59 11:59 11:59 Intake Total 1194 / 1194 3545 / 3545 720 / 720 1250 / 1250 Output Total 3000 / 3000 3900 / 3900 4225 / 4225 650 / 650 Balance -1806 / -1806 -355 / -355 -3505 / -3505 600 / 600 Weight 323 lb 3 oz 321 lb 3.416 oz 315 lb 0.649 oz 319 lb 10.724 oz Microbiology Reports for the Last 24 Hours: Microbiology 08/26/18 08:05 Urine,Catheterized Urine Culture - Preliminary Narrative: She is alert and oriented. Color is normal. No distress. Lungs are clear to auscultation anteriorly. Heart is distant but regular. Abdomen obese soft and nondistended with no tenderness. Swelling in her right upper extremity has resolved. She still has moderate edema of the left upper extremity. Assessment and Plan (1) Hypotension Current visit: Yes Status: Acute Category: Medical Code(s): I95.9 - Hypotension, unspecified (2) Volume depletion Current visit: Yes Status: Acute Category: Medical Code(s): E86.9 - Volume depletion, unspecified (3) Enterococcus UTI Current visit: Yes Status: Acute Category: Medical Code(s): N39.0 - Urinary tract infection, site not specified; B95.2 - Enterococcus as the cause of diseases classified elsewhere (4) MRSA bacteremia Current visit: Yes Status: Acute Category: Medical Code(s): R78.81 - Bacteremia (5) Weakness generalized Current visit: Yes Status: Acute Category: Medical Code(s): R53.1 - Weakness (6) Post op infection Current visit: Yes Status: Acute Category: Medical Code(s): T81.40XA - Infection following a procedure, unspecified, initial encounter (7) Anemia Current visit: Yes Status: Acute Category: Medical Code(s): D64.9 - Anemia, unspecified (8) Chronic renal failure, stage 3 (moderate) Current visit: Yes Status: Chronic Category: Medical Code(s): N18.3 - Chronic kidney disease, stage 3 (moderate) (9) Status post knee replacement Current visit: Yes Status: Chronic Category: Surgical Code(s): Z96.659 - Presence of unspecified artificial knee joint (10) Status post tendon repair Current visit: Yes Status: Chronic Category: Surgical Code(s): Z98.890 - Other specified postprocedural states (11) Mobility impaired Current visit: No Status: Acute Category: Medical Code(s): Z74.09 - Other reduced mobility (12) Postoperative wound infection Current visit: No Status: Acute Category: Medical Code(s): T81.49XA - Infection following a procedure, other surgical site, initial encounter (13) Arthritis Current visit: No Status: Chronic Category: Medical Code(s): M19.90 - Unspecified osteoarthritis, unspecified site (14) Degenerative disc disease Current visit: No Status: Chronic Category: Medical (15) GERD (gastroesophageal reflux disease) Current visit: No Status: Chronic Category: Medical Code(s): K21.9 - Gastro-esophageal reflux disease without esophagitis (16) Hypertension Current visit: No Status: Chronic Category: Medical Code(s): I10 - Essential (primary) hypertension (17) Bacteremia due to Enterobacter species Current visit: Yes Status: Acute Category: Medical Code(s): R78.81
[2018-08-28 15:16] VITALS: BP 150/59; PULSE 72; RESP 17; TEMP 36.8; O2SAT 98
--- NOTE | 2018-08-28 15:18 | PC.NURSE ---
COURTESY ROUND: ICE WATER WAS GIVEN & TRASH WAS TAKEN OUT. PATIENT WAS CHANGED AT THIS TIME, PER MYSELF & Rob HIGGINS.
--- NOTE | 2018-08-28 15:35 | PC.NURSE ---
no acute changes noted. picc line patent. blisters and itching to dressing of picc line. benedryl cream ordered and applied. pt still has edema. dressing has been changed. pt has had no c/o of pain, n/v, or soa. v/s/s. call light in reach. will continue to monitor pt condition
[2018-08-28 19:57] VITALS: BP 117/58; PULSE 63; RESP 20; TEMP 36.8; O2SAT 96
[2018-08-28 20:28] LABS: Adenovirus F 40/41, stool Not Detected (NotDetected); Astrovirus Not Detected (NotDetected); Campylobacter Not Detected (NotDetected); Clostridium Difficile A/B, PCR Not Detected (NotDetected); Cryptosporidium Not Detected (NotDetected); Cyclospora Cayetanesis Not Detected (NotDetected); Entamoeba histolytica Not Detected (NotDetected); Enteroaggregative E coli Not Detected (NotDetected); Enteropathogenic E coli Not Detected (NotDetected); Enterotoxigenic E coli Not Detected (NotDetected); Giardia lamblia Not Detected (NotDetected); Norovirus Not Detected (NotDetected); Plesimonas Shigalloides, PCR Not Detected (NotDetected); Rotavirus A Not Detected (NotDetected); Salmonella, PCR Not Detected (NotDetected); Sapovirus Not Detected (NotDetected); Shiga-like toxin E coli Not Detected (NotDetected); Shigella Enterovasive E coli Not Detected (NotDetected); Vibrio Cholerae Not Detected (NotDetected); Vibrio, PCR Not Detected (NotDetected); Yersinia Entercolitica, PCR Not Detected (NotDetected)
[2018-08-28 23:49] VITALS: BP 124/63; PULSE 82; RESP 20; TEMP 36.8; O2SAT 97
--- NOTE | 2018-08-29 03:46 | PC.NURSE ---
NO ACUTE CHANGES THIS SHIFT. PT WAS A&O X 3. CLEAR, EQUAL BILATERAL BREATH SOUNDS WITH DIMINISHED BASES PER AUSCULTATION. PT ABDOMEN WAS FLAT, ROUND AND NON TENDER PER PALPATION. PT COMPLAINED OF MULTIPLE LOOSE STOOLS T/O THE DAY. STOOL SAMPLE WAS OBTAINED FOR A DIARRHEA PANEL. ON MED PASS PT HAD FLUSHED CHEEKS ON ASSESSMENT. VITALS WERE STABLE AND PT WAS AFEBRILE. PT VOIDS PER REAL CATHETER. DRESSING IS CDI. PT ALSO HAS A DRESSING PRESENT ON HER LEFT THIGH COVERING HER WOUND. DRESSING IS CDI WITH NO S/S OF INFECTION. PT REMAINED IN CONTACT ISOLATION T/O THE SHIFT. PICC LINE WAS PATENT WITH FLUSHED. DRESSING WAS CDI WITH TWO SMALL BLISTERS LOCATED ON THE BOTTOM OF THE DRESSING. BED LIGHT REMAINED IN REACH. VSS. WILL CONTINUE TO MONITOR.
[2018-08-29 04:01] VITALS: BP 125/56; PULSE 75; RESP 20; TEMP 36.8; O2SAT 96; BMI 51.6
--- NOTE | 2018-08-29 04:04 | PC.NURSE ---
NO ACUTE CHANGES THIS SHIFT. PT WAS A&O X 3. PT HAS CLEAR., EQUAL BREATH SOUNDS WITH DIMINISHED BASES. PT ABDOMEN IS FLAT, ROUND AND NON TENDER. PT COMPLAINED OF MULTIPLE LOOSE STOOLS T/O THE DAY. STOOL SAMPLE WAS OBTAINED AND SENT TO LAB FOR DIARRHEA PANEL. PT HAS REAL CATHETER IN PLACE. URINE IS LIGHT JEFFERY IN COLOR. DRESSING IS CDI WITH NO S/S OF INFECTION. PICC LINE REMAINED PATENT WITH FLUSHED. DRESSING IS CDI WITH TWO SMALL BLISTERS AT THE BOTTOM OF THE DRESSING. WILL CONTINUE TO MONITOR. PT REMAINED IN CONTACT ISOLATION T/O SHIFT. CALLED LIGHT REMAINED IN REACH. VSS. WILL CONTINUE TO MONITOR.
--- NOTE | 2018-08-29 07:18 | PC.NURSE ---
REPORT GIVEN TO Grecia MYLES
[2018-08-29 07:57] VITALS: BP 125/64; PULSE 73; RESP 16; TEMP 36.6; O2SAT 98
[2018-08-29 08:00] VITALS: PULSE 73; O2SAT 97
--- NOTE | 2018-08-29 09:18 | HMH.ACPN2 ---
Internal Medicine - PN: Subj *Date: 08/29/18 *Time: 09:45 Interval history: She feels like the cast is rubbing on her heel. This kept her awake some during the night. She is now having frequent diarrheal stools. Diarrhea panel yesterday was negative for infectious etiology. No complaints of shortness of breath. Appetite fair. Exam Vital signs and Labs for Last 24 Hours: Temp Pulse Resp BP Pulse Ox 97.9 F 73 16 125/64 98 08/29/18 07:57 08/29/18 07:57 08/29/18 07:57 08/29/18 07:57 08/29/18 07:57 Laboratory Results - last 24 hr 08/28/18 20:10: Stl Aeromonas (PCR) Not detected, Stl C. cayetanensis PCR Not detected, Stool Rotavirus (PCR) Not detected, Stl Adenov F 40/41 PCR Not detected, Stool Astrovirus (PCR) Not detected, Stool Campylobacter PCR Not detected, Stl C.difficile Tox PCR Not detected, Stool Cryptosporidium PCR Not detected, Stl E.coli Shiga Tox PCR Not detected, Stool E coli O157 PCR Not detected, Stl Enterotoxigenic E PCR Not detected, Stool EPEC (PCR) Not detected, Stool EAEC (PCR) Not detected, Stl E. histolytica PCR Not detected, Stool Giardia Lamblia PCR Not detected, Stool Salmonella PCR Not detected, Stool Sapovirus (PCR) Not detected, Stl P. shigelloides PCR Not detected, Stl Shigella/EIEC PCR Not detected, St Y.enterocolitica PCR Not detected, Stool Vibrio (PCR) Not detected, Stl Vibrio cholerae PCR Not detected, Stl Norovirus GI/GII PCR Not detected I & O for Last 24 hours: Intake & Output 08/26/18 08/27/18 08/28/18 08/29/18 11:59 11:59 11:59 11:59 Intake Total 3545 / 3545 720 / 720 1250 / 1250 530 / 530 Output Total 3900 / 3900 4225 / 4225 650 / 650 1450 / 1450 Balance -355 / -355 -3505 / -3505 600 / 600 -920 / -920 Weight 321 lb 3.416 oz 315 lb 0.649 oz 319 lb 10.724 oz 320 lb 1.779 oz Microbiology Reports for the Last 24 Hours: Microbiology 08/26/18 08:05 Urine,Catheterized Urine Culture - Final Yeast Narrative: Weight gain noted. She is alert and oriented. Color is normal. Lungs are clear to auscultation. Heart is regular. Peripheral edema is about the same. Assessment and Plan (1) Hypotension Current visit: Yes Status: Acute Category: Medical Code(s): I95.9 - Hypotension, unspecified (2) Volume depletion Current visit: Yes Status: Acute Category: Medical Code(s): E86.9 - Volume depletion, unspecified (3) Enterococcus UTI Current visit: Yes Status: Acute Category: Medical Code(s): N39.0 - Urinary tract infection, site not specified; B95.2 - Enterococcus as the cause of diseases classified elsewhere (4) MRSA bacteremia Current visit: Yes Status: Acute Category: Medical Code(s): R78.81 - Bacteremia (5) Weakness generalized Current visit: Yes Status: Acute Category: Medical Code(s): R53.1 - Weakness (6) Post op infection Current visit: Yes Status: Acute Category: Medical Code(s): T81.40XA - Infection following a procedure, unspecified, initial encounter (7) Anemia Current visit: Yes Status: Acute Category: Medical Code(s): D64.9 - Anemia, unspecified (8) Chronic renal failure, stage 3 (moderate) Current visit: Yes Status: Chronic Category: Medical Code(s): N18.3 - Chronic kidney disease, stage 3 (moderate) (9) Status post knee replacement Current visit: Yes Status: Chronic Category: Surgical Code(s): Z96.659 - Presence of unspecified artificial knee joint (10) Status post tendon repair Current visit: Yes Status: Chronic Category: Surgical Code(s): Z98.890 - Other specified postprocedural states (11) Mobility impaired Current visit: No Status: Acute Category: Medical Code(s): Z74.09 - Other reduced mobility (12) Postoperative wound infection Current visit: No Status: Acute Category: Medical Code(s): T81.49XA - Infection following a procedure, other surgical site, initial encounter (13) Arthritis Current visit: No
--- NOTE | 2018-08-29 11:25 | DIET.NUTRFU ---
Patient weight is up 5 lbs at 320 lbs. po intakes remain poor at 25%. She is drinking protein shakes, tiring of Ensure supplements. Will change supplements to Estrada Breeze per patient preference. Patient remains with edema, plans to transfer to [place] tomorrow.
--- NOTE | 2018-08-29 13:57 | PC.NURSE ---
PATIENT'S LEG WITH CAST UNWRAPPED AND READJUSTED, PER Zion SHEFFIELD RN, TOLERATED WELL.
[2018-08-29 15:27] VITALS: BP 134/72; PULSE 68; RESP 18; TEMP 36.6; O2SAT 96
--- NOTE | 2018-08-29 18:35 | PC.NURSE ---
PATIENT RESTING IN BED, FAMILY AT BEDSIDE. READJUSTED CAST ON LEFT LEG TODAY, PATIENT STILL COMPLAINED OF DISCOMFORT AFTER THE READJUSTMENT. PAIN MEDICATION GIVEN PER MAR, PATIENT STATED IT HELPED WITH THE DISCOMFORT. VSS, LUNGS CLEAR, NO DISTRESS NOTED. DENIES ANY NEEDS, CALL PRESTON IN REACH, BED IN LOWEST POSITION, WILL CONTINUE TO MONITOR.
--- NOTE | 2018-08-29 19:13 | PC.NURSE ---
report given to beau
[2018-08-29 19:47] VITALS: O2SAT 95
[2018-08-29 20:00] VITALS: BP 138/71; PULSE 64; RESP 18; TEMP 36.8; O2SAT 97
--- NOTE | 2018-08-30 03:51 | PC.NURSE ---
PATIENT SEEMS TO HAVE SLEPT WELL THIS SHIFT. SHE HAS C/O PAIN TO LLE X2 AND RECEIVED PRN MORPHINE, WHICH WAS EFFECTIVE. REAL CONTINUES TO DRAIN DARK YELLOW URINE TO BSD. SHE HAS NOT C/O SOA OR DYSPNEA THIS SHIFT. NO ACUTE CHANGES NOTED SINCE PREVIOUS ASSESSMENT. PATIENT IS CURRENTLY IN BED SLEEPING WITH NO OTHER PROBLEMS NOTED AT THIS TIME. VSS. WILL CONTINUE TO MONITOR.
[2018-08-30 04:00] VITALS: BP 138/71; PULSE 64; PULSE 68; RESP 18; TEMP 36.8; O2SAT 97
[2018-08-30 05:00] VITALS: BMI 51.6
[2018-08-30 08:00] VITALS: BP 141/65; PULSE 68; PULSE 74; RESP 20; TEMP 36.7; O2SAT 96
--- NOTE | 2018-08-30 08:24 | HMH.ACPN2 ---
<Dahlia Leigh - Last Filed: 08/30/18 08:24> Internal Medicine - PN: Subj *Date: 08/30/18 *Time: 08:24 Interval history: Patient states she slept. She had yogurt and drink breakfast without nausea and vomiting. She is having minimal diarrhea. Her biggest complaint is her left heel pain. Nursing did remove cast and replaced with padding yesterday. She is receiving morphine for the pain. She denies chest pain shortness of breath this morning. is at bedside. Awaiting call for bed availability at [facility] for transfer today. Exam Vital signs and Labs for Last 24 Hours: Temp Pulse Resp BP Pulse Ox 98.3 F 64 18 138/71 97 08/30/18 04:00 08/30/18 04:00 08/30/18 04:00 08/30/18 04:00 08/30/18 04:00 Laboratory Results - last 24 hr 08/29/18 08:25: Vancomycin Trough 15.0 I & O for Last 24 hours: Intake & Output 08/27/18 08/28/18 08/29/18 08/30/18 11:59 11:59 11:59 11:59 Intake Total 720 / 720 1250 / 1250 530 / 530 960 / 960 Output Total 4225 / 4225 650 / 650 1450 / 1450 3300 / 3300 Balance -3505 / -3505 600 / 600 -920 / -920 -2340 / -2340 Weight 315 lb 0.649 oz 319 lb 10.724 oz 320 lb 1.779 oz 320 lb 1 oz Microbiology Reports for the Last 24 Hours: Microbiology 08/26/18 08:05 Urine,Catheterized Urine Culture - Final Yeast - Constitutional no acute distress Comments: Appears comfortable lying in bed. - *Routine Respiratory Exam Present: CTA bilaterally - *Routine Cardiovascular Exam Present: RRR - *Routine Abdominal Exam Present: soft, normoactive bowel sounds. Absent: tenderness - *Routine Extremities Exam Comments: Edema in right lower leg. Without calf tenderness. Left leg with half cast. Toes are warm. Wound in upper anterior thigh with some irritation at site. - *Routine Neurological Exam Present: alert, oriented X3 Assessment and Plan (1) Hypotension Status: Acute Category: Medical Code(s): I95.9 - Hypotension, unspecified (2) Volume depletion Status: Acute Category: Medical Code(s): E86.9 - Volume depletion, unspecified (3) Enterococcus UTI Status: Acute Category: Medical Code(s): N39.0 - Urinary tract infection, site not specified; B95.2 - Enterococcus as the cause of diseases classified elsewhere (4) MRSA bacteremia Status: Acute Category: Medical Code(s): R78.81 - Bacteremia (5) Weakness generalized Status: Acute Category: Medical Code(s): R53.1 - Weakness (6) Post op infection Status: Acute Category: Medical Code(s): T81.40XA - Infection following a procedure, unspecified, initial encounter (7) Anemia Status: Acute Category: Medical Code(s): D64.9 - Anemia, unspecified (8) Chronic renal failure, stage 3 (moderate) Status: Chronic Category: Medical Code(s): N18.3 - Chronic kidney disease, stage 3 (moderate) (9) Status post knee replacement Status: Chronic Category: Surgical Code(s): Z96.659 - Presence of unspecified artificial knee joint (10) Status post tendon repair Status: Chronic Category: Surgical Code(s): Z98.890 - Other specified postprocedural states (11) Mobility impaired Status: Acute Category: Medical Code(s): Z74.09 - Other reduced mobility (12) Postoperative wound infection Status: Acute Category: Medical Code(s): T81.49XA - Infection following a procedure, other surgical site, initial encounter (13) Arthritis Status: Chronic Category: Medical Code(s): M19.90 - Unspecified osteoarthritis, unspecified site (14) Degenerative disc disease Status: Chronic Category: Medical (15) GERD (gastroesophageal reflux disease) Status: Chronic Category: Medical Code(s): K21.9 - Gastro-esophageal reflux disease without esophagitis (16) Hypertension Status: Chronic Category: Medical Code(s): I10 - Essential (primary) hypertension (17) Bacteremia due to Enterobacter species Stat
--- NOTE | 2018-08-30 08:28 | P.PN_ITS ---
<Dahlia Leigh - Last Filed: 08/30/18 08:24> Internal Medicine - PN: Subj *Date: 08/30/18 *Time: 08:24 Interval history: Patient states she slept. She had yogurt and drink breakfast without nausea and vomiting. She is having minimal diarrhea. Her biggest complaint is her left heel pain. Nursing did remove cast and replaced with padding yesterday. She is receiving morphine for the pain. She denies chest pain shortness of breath this morning. is at bedside. Awaiting call for bed availability at [facility] for transfer today. Exam Vital signs and Labs for Last 24 Hours: Temp Pulse Resp BP Pulse Ox 98.3 F 64 18 138/71 97 08/30/18 04:00 08/30/18 04:00 08/30/18 04:00 08/30/18 04:00 08/30/18 04:00 Laboratory Results - last 24 hr 08/29/18 08:25: Vancomycin Trough 15.0 I & O for Last 24 hours: Intake & Output 08/27/18 08/28/18 08/29/18 08/30/18 11:59 11:59 11:59 11:59 Intake Total 720 / 720 1250 / 1250 530 / 530 960 / 960 Output Total 4225 / 4225 650 / 650 1450 / 1450 3300 / 3300 Balance -3505 / -3505 600 / 600 -920 / -920 -2340 / -2340 Weight 315 lb 0.649 oz 319 lb 10.724 oz 320 lb 1.779 oz 320 lb 1 oz Microbiology Reports for the Last 24 Hours: Microbiology 08/26/18 08:05 Urine,Catheterized Urine Culture - Final Yeast - Constitutional no acute distress Comments: Appears comfortable lying in bed. - *Routine Respiratory Exam Present: CTA bilaterally - *Routine Cardiovascular Exam Present: RRR - *Routine Abdominal Exam Present: soft, normoactive bowel sounds. Absent: tenderness - *Routine Extremities Exam Comments: Edema in right lower leg. Without calf tenderness. Left leg with half cast. Toes are warm. Wound in upper anterior thigh with some irritation at site. - *Routine Neurological Exam Present: alert, oriented X3 Assessment and Plan (1) Hypotension Status: Acute Category: Medical Code(s): I95.9 - Hypotension, unspecified (2) Volume depletion Status: Acute Category: Medical Code(s): E86.9 - Volume depletion, unspecified (3) Enterococcus UTI Status: Acute Category: Medical Code(s): N39.0 - Urinary tract infection, site not specified; B95.2 - Enterococcus as the cause of diseases classified elsewhere (4) MRSA bacteremia Status: Acute Category: Medical Code(s): R78.81 - Bacteremia (5) Weakness generalized Status: Acute Category: Medical Code(s): R53.1 - Weakness (6) Post op infection Status: Acute Category: Medical Code(s): T81.40XA - Infection following a procedure, unspecified, initial encounter (7) Anemia Status: Acute Category: Medical Code(s): D64.9 - Anemia, unspecified (8) Chronic renal failure, stage 3 (moderate) Status: Chronic Category: Medical Code(s): N18.3 - Chronic kidney disease, stage 3 (moderate) (9) Status post knee replacement Status: Chronic Category: Surgical Code(s): Z96.659 - Presence of unspecified artificial knee joint (10) Status post tendon repair Status: Chronic Category: Surgical Code(s): Z98.890 - Other specified postprocedural states (11) Mobility impaired Status: Acute Category: Medical Code(s): Z74.09 - Other reduced mobility (12) Postoperative wound i
--- NOTE | 2018-08-30 10:58 | SW/DCPLANNER ---
I have notified Mitzy at [facility] that this patient will be transferring to [facility] and will not need placement at this time. I have also informed patients that [facility] has all of her information from [facility] and to inform [facility] staff once discharge date is known if still interested in placement at time of discharge from [facility].
--- NOTE | 2018-08-31 08:46 | HMH.DCSUM ---
General - General Admission date:: 08/19/18 <Juan José Kendall - 09/18/18 22:29> 08/19/18 <Carol Timmons - 08/31/18 09:08> Discharge date: 08/30/18 <Carol Timmons - 08/31/18 09:08> HPI HPI: Ms. Blair is a 62-year-old female with a history of hypertension, migraine headaches, seasonal allergies, GERD, arthritis, cervical cancer, and chronic back pain with degenerative disc disease. She just recently had a knee replacement in February 2018 with a patellar repair in March 2018 and a reconstructed patella 6 weeks ago. She developed a wound infection and was seeing her orthopedic surgeon weekly with home health doing daily packing of the wound. Her surgeon had started on Augmentin for the infection after which she developed a rash. She stopped taking the Augmentin and started on Benadryl. The rash got worse and she became very lethargic. She presented to the office of [facility] on 08/10/2018 and was directly admitted. She had wound cultures during that admission that came back positive for MRSA and staph epidermidis both of which were sensitive to vancomycin. Her blood cultures came back positive for MRSA as well. She was discharged home on 08/16/18 on vancomycin via PICC line. Her states she was doing well up until 2 days ago when she began getting very fatigued and confused. He states he has had difficulty getting her to eat due to nausea. Physical therapy did come and see the patient on 08/18/2018. They felt if she was no better by 08/19/2018, she should go back to the emergency room. Her states she was still feeling poorly, therefore he brought her back to the ER. Her white blood cell count was actually normal and her H&H was low but stable. Her renal function was elevated. She had a repeat chest x-ray which showed nothing acute. She was admitted for further evaluation and treatment. <Carol Timmons - 08/31/18 09:08> Hospital Course Hospital Course: The patient's H&H was stable from previous discharge. Her renal function was elevated. She did have some blood and white cells in her urine, therefore a urine culture was ordered and she was started on rocephin and was continued on vancomycin d/t her previous blood culture results. A repeat blood culture was ordered as well. Her mentation did improve after admission. It was initially felt that the patient was going to be sent to [place] for rehab, however they denied the patient's admission. Her urine culture did grow yeast, therefore she was started on Diflucan. Blood cultures were positive for staph hominis and Enterococcus faecalis which were both sensitive to the vancomycin. The patient did become more lethargic and Dr. Kendall ordered a 500 cc fluid bolus and increased her fluid rate to 125 mL/hr. She developed a low-grade fever. A CBC, CMP, and lactic acid were all ordered. The lactic acid was normal and her renal function continued to remain elevated. She was hypotensive and her urine output had been low. She became a bit more alert after receiving the IV fluids. Her hypotension improved as well and she had better urine output. Her hemoglobin had decreased to 7.6, therefore she was transfused with 2 units of packed red blood cells. Her transfusion was followed with Lasix. Her H&H improved with transfusion. Her renal function did not improve. She did have good diuresis with the Lasix. She also had a low albumin, therefore dietary was consulted. Her iron level was low, therefore she was started on iron supplementation. She had some issues with constipation and was given MiraLAX and an enema with good results. She did however soil her left leg splint with her bowel movement, therefore Dr. Handley was consulted to replace her left leg splint. The patient began feeling short of breath and noted some swelling in her left hand. Her Lasix was continued and she was saline locked. Her hand was propped on a pillow. A chest x-ray was o
--- NOTE | 2018-08-31 08:50 | P.DS_ITS ---
General - General Admission date:: 08/19/18 <Juan José Kendall - 09/18/18 22:29> 08/19/18 <Carol Timmons - 08/31/18 09:08> Discharge date: 08/30/18 <Carol Timmons - 08/31/18 09:08> HPI HPI: Ms. Blair is a 62-year-old female with a history of hypertension, migraine headaches, seasonal allergies, GERD, arthritis, cervical cancer, and chronic back pain with degenerative disc disease. She just recently had a knee replacement in February 2018 with a patellar repair in March 2018 and a reconstructed patella 6 weeks ago. She developed a wound infection and was seeing her orthopedic surgeon weekly with home health doing daily packing of the wound. Her surgeon had started on Augmentin for the infection after which she developed a rash. She stopped taking the Augmentin and started on Benadryl. The rash got worse and she became very lethargic. She presented to the office of [facility] on 08/10/2018 and was directly admitted. She had wound cultures during that admission that came back positive for MRSA and staph epidermidis both of which were sensitive to vancomycin. Her blood cultures came back positive for MRSA as well. She was discharged home on 08/16/18 on vancomycin via PICC line. Her states she was doing well up until 2 days ago when she began getting very fatigued and confused. He states he has had difficulty getting her to eat due to nausea. Physical therapy did come and see the patient on 08/18/2018. They felt if she was no better by 08/19/2018, she should go back to the emergency room. Her states she was still feeling poorly, therefore he brought her back to the ER. Her white blood cell count was actually normal and her H&H was low but stable. Her renal function was elevated. She had a repeat chest x-ray which showed nothing acute. She was admitted for further evaluation and treatment. <Carol Timmons - 08/31/18 09:08> Hospital Course Hospital Course: The patient's H&H was stable from previous discharge. Her renal function was elevated. She did have some blood and white cells in her urine, therefore a urine culture was ordered and she was started on rocephin and was continued on vancomycin d/t her previous blood culture results. A repeat blood culture was ordered as well. Her mentation did improve after admission. It was initially felt that the patient was going to be sent to [place] for rehab, however they denied the patient's admission. Her urine culture did grow yeast, therefore she was started on Diflucan. Blood cultures were positive for staph hominis and Enterococcus faecalis which were both sensitive to the vancomycin. The patient did become more lethargic and Dr. Kendall ordered a 500 cc fluid bolus and increased her fluid rate to 125 mL/hr. She developed a low-grade fever. A CBC, CMP, and lactic acid were all ordered. The lactic acid was normal and her renal function continued to remain elevated. She was hypotensive and her urine output had been low. She became a bit more alert after receiving the IV fluids. Her hypotension improved as well and she had better urine output. Her hemoglobin had decreased to 7.6, therefore she was transfused with 2 units of packed red blood cells. Her transfusion was followed with Lasix. Her H&H improved with transfusion. Her renal function did not improve. She did have good diuresis with the Lasix. She also had a low albumin, therefore dietary was consulted. Her iron level was low, therefore she was started on iron supplementation. She had some issues with constipation and was given MiraLAX and an enema with good results. She did however soil her left leg splint with her bowel movement, therefore Dr. Handley was
== END 2018-08-30 14:12 | disposition short-term general hospital (02) | DRG 863 ==
LOC: ER 17:41 → 2ND 18:05
PROVIDERS: Admitting Provider Emergency Medicine; Emergency Provider Emergency Medicine; PCP Family Medicine; Visit Provider Family Medicine
DX: T81.49XA Infection following a procedure, other surgical site, initial encounter (principal); N39.0 Urinary tract infection, site not specified; N17.9 Acute kidney failure, unspecified; K52.1 Toxic gastroenteritis and colitis; B95.62 Methicillin resistant Staphylococcus aureus infection as the cause of diseases classified elsewhere; N18.3 Chronic kidney disease, stage 3 (moderate); I12.9 Hypertensive chronic kidney disease with stage 1 through stage 4 chronic kidney disease, or unspecified chronic kidney disease; R21 Rash and other nonspecific skin eruption; K21.9 Gastro-esophageal reflux disease without esophagitis; E78.5 Hyperlipidemia, unspecified; I95.9 Hypotension, unspecified; E86.9 Volume depletion, unspecified; B95.2 Enterococcus as the cause of diseases classified elsewhere; M19.90 Unspecified osteoarthritis, unspecified site; D50.9 Iron deficiency anemia, unspecified; K59.00 Constipation, unspecified; E88.09 Other disorders of plasma-protein metabolism, not elsewhere classified; T36.95XA Adverse effect of unspecified systemic antibiotic, initial encounter; M79.672 Pain in left foot; R22.32 Localized swelling, mass and lump, left upper limb; B37.9 Candidiasis, unspecified; R06.02 Shortness of breath; Z79.899 Other long term (current) drug therapy; Z88.1 Allergy status to other antibiotic agents; Z88.0 Allergy status to penicillin; Z88.8 Allergy status to other drugs, medicaments and biological substances; Z85.41 Personal history of malignant neoplasm of cervix uteri; Z96.653 Presence of artificial knee joint, bilateral; Z90.710 Acquired absence of both cervix and uterus
CPT/HCPCS: 36430; 36415; 71045; 80048; 80053; 80202; 81001; 82140; 82607; 82728; 82746; 82803; 83540; 83550; 83605; 84484; 85014; 85018; 85025; 86850; 87040; 87077; 87086; 87088; 87186; 87506; 93005; 96365; 99284; J2405; J3370; P9016

== ENCOUNTER → 2019-03-17 15:45 | Outpatient (CLI) | payer BC, MEDICARE, SELFPAY | PROVIDERS: Visit Provider Family Medicine | DX: T14.8XXA Other injury of unspecified body region, initial encounter (principal); M25.561 Pain in right knee | CPT/HCPCS: 87070; 87077; 87186; 87205 ==

== ENCOUNTER → 2019-10-25 08:15 | Outpatient (CLI) | payer BC, MEDICARE, SELFPAY | PROVIDERS: Visit Provider Internal Medicine Endocrinology, Diabetes & Metabolism | DX: T84.018A Broken internal joint prosthesis, other site, initial encounter (principal) | CPT/HCPCS: 36415; 80069; 80076; 82306; 82330; 83970; 85025 ==

== ENCOUNTER → 2019-10-25 08:52 | Outpatient (CLI) | payer BC, MEDICARE, SELFPAY ==
[2019-10-25 08:48] LABS: Basophils # 0.1 K/mm3 (0-0.2); Basophils % 0.9 % (0.1-2.0); Eosinophils # 0.4 K/mm3 (0.0-0.4); Eosinophils % 4.6 % (0.1-12.0); Hematocrit 38.3 % (37.0-47.0); Hemoglobin 12.2 g/dL (12.2-16.2); Lymphocytes # 1.6 K/mm3 (0.7-4.5); Lymphocytes % 20.4 % (10-50); Mean Corpuscular HGB Conc 31.8 g/dL (31.8-35.4); Mean Corpuscular Hemoglobin 27.4 pg (27.0-31.2); Mean Corpuscular Volume 86.3 fl (81-99); Mean Platelet Volume 7.3 fl (7.4-10.4); Monocytes # 0.4 K/mm3 (0.1-1.0); Monocytes % 5.3 % (1.7-9.3); Neutrophils # 5.3 K/mm3 (1.8-7.8); Neutrophils % 68.9 % (37.0-80.0); Platelet Count 379 K/mm3 (142-424); Red Blood Count 4.44 M/mm3 (4.20-5.40); Red Cell Distribution Width 14.4 % (11.5-17.5); White Blood Count 7.7 K/mm3 (4.8-10.8)
--- NOTE | 2019-10-25 09:02 | XR_ITS ---
PROCEDURE: XR DEXA AXIAL SKELETON CLINICAL HISTORY: BONE FINDING COMPARISON: No exams were available for comparison FINDINGS: The right hip BMD is 0.765 with a t-score of -0.8. The left hip BMD is 0.795 with a t-score of -1.2. The left forearm BMD is 0.755 with a t-score of 1.0. IMPRESSION: This patient is considered osteopenic according to the World Health Organization criteria. Bone density is between 10 and 25 percent below young normal . Fracture risk is moderate. Treatment is advised. Based on these results of follow-up exam is recommended in 2 years Dictated by: Reg Millan MD 10/25/2019 18:39 Electronically signed by Reg Millan MD in [place] 10/26/2019 11:23
[2019-10-25 12:14] LABS: Alanine Aminotransferase 8 U/L (12-78); Albumin Level 3.6 g/dl (3.5-5.0); Alkaline Phosphatase 163 U/L (38-126); Aspartate Amino Transferase 23 U/L (14-36); Bilirubin,Direct 0.2 mg/dl (0.0-0.4); Bilirubin,Indirect 0.3 mg/dL (0.0-0.9); Bilirubin,Total 0.5 mg/dl (0.2-1.3); Bilirubin,Unconjugated 0.2 mg/dL (0.0-1.1); Blood Urea Nitrogen 17 mg/dl (7-17); Calcium 10.3 mg/dl (8.4-10.2); Carbon Dioxide 25 mmol/L (22.0-30.0); Chloride 102 mmol/L (98-107); Estimated Glomerular Filt Rate 30 ml/min (>60); GFR (African American) 36 ML/MIN (>60); Glucose 119 mg/dl (74-100); Phosphorous 4.4 mg/dl (2.5-4.5); Sodium 137 mmol/L (136-145); Total Protein,Serum 7.3 g/dl (6.3-8.2)
[2019-10-25 14:38] LABS: 25-OH Vitamin D, Total < 12.8 ng/mL (30-100)
[2019-12-06 12:25] LABS: Calcium, Ionized 5.9
== END ==
PROVIDERS: PCP Family Medicine; Visit Provider Internal Medicine Endocrinology, Diabetes & Metabolism
DX: M85.89 Other specified disorders of bone density and structure, multiple sites (principal); T84.018A Broken internal joint prosthesis, other site, initial encounter; E55.9 Vitamin D deficiency, unspecified
CPT/HCPCS: 36415; 77080; 80069; 80076; 82306; 82330; 83970; 85025

== ENCOUNTER → 2019-11-30 10:34 | Outpatient (CLI) | payer BC, MEDICARE, SELFPAY ==
--- NOTE | 2019-11-30 11:06 | ECG_ITS ---
APPROVED REPORT Exam: Resting ECG HR:90 bpm ECG Measurements Heart Rate 90 AXES MN 190 P 87 QRSd 68 QRS 67 QT 356 T 71 QTc 435 <Conclusion> Normal sinus rhythm Normal ECG Electronically signed by : Blu Birmingham, 12/02/2019 07:03:17
[2019-11-30 11:07] LABS: Basophils # 0.1 K/mm3 (0-0.2); Basophils % 1.2 % (0.1-2.0); Eosinophils # 0.4 K/mm3 (0.0-0.4); Hematocrit 40.1 % (37.0-47.0); Hemoglobin 12.8 g/dL (12.2-16.2); Lymphocytes # 1.4 K/mm3 (0.7-4.5); Lymphocytes % 19.2 % (10-50); Mean Corpuscular Hemoglobin 27.6 pg (27.0-31.2); Mean Corpuscular Volume 86.2 fl (81-99); Mean Platelet Volume 8.2 fl (7.4-10.4); Monocytes # 0.5 K/mm3 (0.1-1.0); Monocytes % 6.1 % (1.7-9.3); Neutrophils % 67.5 % (37.0-80.0); Platelet Count 394 K/mm3 (142-424); Red Blood Count 4.66 M/mm3 (4.20-5.40); Red Cell Distribution Width 14.4 % (11.5-17.5); White Blood Count 7.3 K/mm3 (4.8-10.8)
[2019-11-30 11:22] LABS: Anion Gap 13.6 mEq/L (5-15); Blood Urea Nitrogen 14 mg/dl (7-17); Calcium 11.1 mg/dl (8.4-10.2); Carbon Dioxide 30 mmol/L (22.0-30.0); Chloride 99 mmol/L (98-107); Estimated Glomerular Filt Rate 38 ml/min (>60); GFR (African American) 46 ML/MIN (>60); Glucose 117 mg/dl (74-100); Potassium 3.6 mmoL/L (3.5-5.1); Sodium 139 mmol/L (136-145)
[2019-11-30 11:23] LABS: Alanine Aminotransferase 10 U/L (12-78); Albumin Level 3.7 g/dl (3.5-5.0); Alkaline Phosphatase 155 U/L (38-126); Aspartate Amino Transferase 30 U/L (14-36); Bilirubin,Direct 0.2 mg/dl (0.0-0.4); Bilirubin,Indirect 0.4 mg/dL (0.0-0.9); Bilirubin,Total 0.6 mg/dl (0.2-1.3); Bilirubin,Unconjugated 0.4 mg/dL (0.0-1.1); Phosphorous 4.4 mg/dl (2.5-4.5); Total Protein,Serum 7.8 g/dl (6.3-8.2)
[2019-11-30 11:34] LABS: Intact Parathyroid Hormone 4.7 pg/mL (7.5-53.5)
[2019-11-30 11:56] LABS: 25-OH Vitamin D, Total < 12.8 ng/mL (30-100)
[2019-11-30 12:12] LABS: Coronavirus 19 IgG Antibody Negative (Negative); Coronavirus 19 IgM Antibody Negative (Negative)
[2019-12-01 18:15] LABS: Calcium, Ionized 6.7 mg/dL (4.5-5.6)
== END ==
PROVIDERS: Internal Medicine Endocrinology, Diabetes & Metabolism; Visit Provider Surgery
DX: T84.018A Broken internal joint prosthesis, other site, initial encounter (principal); L92.9 Granulomatous disorder of the skin and subcutaneous tissue, unspecified; E55.9 Vitamin D deficiency, unspecified; Z01.818 Encounter for other preprocedural examination
CPT/HCPCS: 36415; 80048; 80076; 82306; 82330; 83970; 84100; 85025; 86328; 93005

== ENCOUNTER 2019-12-01 06:11 | Day surgery (SDC) | payer BC, MEDICARE, SELFPAY ==
[2019-11-29 11:28] VITALS: BMI 26.8
[2019-12-01] VITALS (14 sets, daily range): BP systolic 102–138; BP diastolic 69–89; PULSE 62–75; RESP 16–18; TEMP 6.1–43; O2SAT 95–98
--- NOTE | 2019-12-01 07:20 | HMH.ANESCL ---
[facility] Anesthesia Checklist - Patient Identification Patient Identification: Arm Band - Structural Data Admitted From: Home Planned Operative Procedure/s: excision of lesions right leg Consent for Planned Operative Procedure(s) Verified: Yes Verified Documents: Surgical Consent, History and Physical - NPO Status Verified Time NPO: 00:00 - Additional verifications Anesthesia Reactions: No Hx Blood Transfusions: Yes (2019) Blood Transfusion Reaction: No - Airway Assessment C-Spine Mobility Assessed: Yes (mp2) TMJ Mobility Assessed: Yes Dentition: Good Dentition - Neurological Assessment Level of Consciousness: Awake, Alert - Anesthesia Plan Anesthesia Risk discussed: Yes Anesthesia Plan: Verified ASA Class: III Anesthesia Type: General [facility] History Medical History: Reports:: Gastroesophageal Reflux Disease(GERD), Hyperlipidemia, Hypertension, Migraine, MRSA, Renal Insufficiency Denies:: Cancer, Diabetes Mellitus Type 1, Diabetes Mellitus Type 2, Internal Pacemaker, Seizures *Have you ever received a pneumonia vaccine?: Yes *Have you received a flu vaccine this season?: Yes Other Medical History: Reports: Arthritis. Denies: Blood Transfusion Reaction Anesthesia experience/problems:: nac Laterality Cases: Right: Breast Biopsy, Bilateral: Arthroscopy Knee, Total Knee Replacement, Other Other Surgeries: Yes: Hysterectomy-Total, Other (Total L Knee February 2018, L knee tendon repair March 2018,). No: Pacemaker Amputation: No Fractures: No - *Social History Last grade of school completed: Some college Smoking Status: Never smoker Alcohol Intake: never Substance Use Type: denies use *Occupational Status:: retired, disabled Housing: house Household Members: spouse *Travel in the last 8 weeks: None Family Hx:: No significant family history
--- NOTE | 2019-12-01 08:19 | HMH.OPNOTE ---
Date of procedure: 12/01/19 Pre-op Diagnosis:: Exuberant granulomatous tissue (x2) along right lower extremity [site of prior orthopedic intervention] Post-op Diagnosis:: Same Procedure performed:: Excision of exuberant granulomatous tissue along right lower extremity (x2) -superior lesion 3.5 cm/inferior lesion 1.5 cm Surgeon:: Cruzito Alfaro MD [employer]:: Adi Smita Anesthesia: LMA Estimated blood loss (mL): 25 Operative findings:: Extension of exuberant granulomatous change through the subcutaneous tissue and approaching hardware. Excision of tissue extended to deep subcutaneous tissue with cauterization overall accessible granulomatous changes. Deeper extension of excision (approaching hardware) avoided. Operative note:: After informed consent was obtained the patient was taken to the operating room and placed in the supine position. General anesthesia with laryngeal mask airway was achieved. Her right lower extremity was prepped and draped in a sterile fashion. After infiltration local anesthetic elliptical incisions were made with scalpel around the inferior and superior lesions. The superior lesion was 3.5 cm. The inferior lesion was 1.5 cm. Electrocautery was utilized to transect through the deeper subcutaneous tissue. As the excision was extended more deeply it became evident that granulomatous changes likely extended to underlying hardware. The decision to forego deeper excision/extension of dissection (to avoid hardware) was made. All accessible granulomatous changes through the deep subcutaneous tissue were excised and carefully cauterized. Electrocautery was then utilized to achieve hemostasis and skin was closed with interrupted 4-0 nylon. The entire area was carefully cleaned again with alcohol. Antibiotic ointment was placed on both incisions and sterile dressings were applied. The patient was then transferred to recovery after removal of her laryngeal mask airway. Condition: stable Disposition: PACU Specimens:: Exuberant granulomatous tissue right lower extremity (inferior lesion) Exuberant granulomatous tissue right lower extremity (superior lesion) Complications:: No immediate
--- NOTE | 2019-12-01 08:22 | P.PN_ITS ---
[facility] Anesthesia Record Part I Intake, IV Amount: 1,200 Estimated blood loss (mL): 5 Urine output (mL): 0 Blood Pressure: 120/69 SaO2: 96 Pulse Rate: 75 Respiratory Rate: 16 Temperature: 97.9 F Patient is:: Drowsy, Stable Stable to PACU at:: 08:20
--- NOTE | 2019-12-01 09:01 | PC.NURSE ---
[id number]-detailed report called to LISBETH Ryan [id number]-pt transported to post op via stretcher w/monet rails up and left in care of LISBETH Ryan with bed locked in lowest position, vss, pt stable
--- NOTE | 2019-12-01 12:24 | P.PN_ITS ---
[facility] Anesthesia Record Part II Discharge Time: 08:50 Destination: Surgical Day Care (OP Surgery) PACU nurse assessment reviewed?: Yes Patient Condition:: Good Anesthesia Complications:: None Swallowing reflex intact?: Yes Cyanosis?: No Blood Pressure: 122/75 Pulse Rate: 66 Temperature: 97.6 F Mental Status: Alert & Oriented Pain level:: 4 Nausea and/or vomitting:: None Intake, IV Amount: 0
== END 2019-12-01 09:40 | disposition home or self-care (01) ==
LOC: OR 06:14
PROVIDERS: PCP Family Medicine; Visit Provider Surgery
PROC: (CPT 11404; principal; 2019-12-01 07:30)
DX: L92.8 Other granulomatous disorders of the skin and subcutaneous tissue (principal); Z96.652 Presence of left artificial knee joint; K21.9 Gastro-esophageal reflux disease without esophagitis; E78.5 Hyperlipidemia, unspecified; I10 Essential (primary) hypertension; Z86.14 Personal history of Methicillin resistant Staphylococcus aureus infection; N28.9 Disorder of kidney and ureter, unspecified; Z90.710 Acquired absence of both cervix and uterus; M19.90 Unspecified osteoarthritis, unspecified site; D64.9 Anemia, unspecified; N18.3 Chronic kidney disease, stage 3 (moderate); Z79.899 Other long term (current) drug therapy
CPT/HCPCS: 11404; 11402; 96374; J2405

== ENCOUNTER → 2020-05-10 11:53 | Outpatient (CLI) | payer BC, MEDICARE, SELFPAY ==
[2020-05-10 13:28] LABS: Alanine Aminotransferase 22 U/L (12-78); Aspartate Amino Transferase 44 U/L (14-36)
[2020-05-10 13:29] LABS: Albumin Level 1.9 g/dl (3.5-5.0); Alkaline Phosphatase 212 U/L (38-126); Bilirubin,Direct 0.4 mg/dl (0.0-0.4); Bilirubin,Total 0.4 mg/dl (0.2-1.3); Creatine Kinase 200 U/L (30-135); Total Protein,Serum 4.7 g/dl (6.3-8.2)
== END ==
PROVIDERS: Visit Provider Orthopaedic Surgery
DX: R94.5 Abnormal results of liver function studies (principal); R74.8 Abnormal levels of other serum enzymes
CPT/HCPCS: 80076; 82550

== ENCOUNTER → 2020-05-20 13:53 | Outpatient (CLI) | payer BC, MEDICARE, SELFPAY ==
[2020-05-21 14:00] LABS: MANUAL DIFFERENTIAL MANUAL DIFFERENTIAL (MANUAL DIFF)
[2020-05-21 14:05] LABS: Creatine Kinase 542 U/L (30-135)
[2020-05-21 14:06] LABS: Anion Gap 5.7 mEq/L (5-15); Aspartate Amino Transferase 62 U/L (14-36); Bilirubin,Total 0.6 mg/dl (0.2-1.3); Blood Urea Nitrogen 6 mg/dl (7-17); Calcium 8.8 mg/dl (8.4-10.2); Carbon Dioxide 23 mmol/L (22.0-30.0); Chloride 101 mmol/L (98-107); Estimated Glomerular Filt Rate 72 ml/min (>60); GFR (African American) 87 ML/MIN (>60); Glucose 115 mg/dl (74-100); Potassium 3.7 mmoL/L (3.5-5.1); Sodium 126 mmol/L (136-145)
[2020-05-21 14:07] LABS: Alanine Aminotransferase 18 U/L (12-78); Albumin Level 2.5 g/dl (3.5-5.0); Albumin/Globulin Ratio 0.7 (1.1-1.8); Alkaline Phosphatase 188 U/L (38-126); C-Reactive Protein 36.3 mg/L (0-4); Globulin 3.4 g/dL (1.3-3.2); Total Protein,Serum 5.9 g/dl (6.3-8.2)
[2020-05-21 14:30] LABS: Hemoglobin 11.1 g/dL (12.2-16.2); Mean Corpuscular HGB Conc 31.8 g/dL (31.8-35.4); Mean Corpuscular Hemoglobin 31.7 pg (27.0-31.2); Mean Corpuscular Volume 99.6 fl (81-99); Mean Platelet Volume 10.7 fl (7.4-10.4); Neutrophils % 67.4 % (37.0-80.0); Platelet Count 489 K/mm3 (142-424); Red Blood Count 3.51 M/mm3 (4.20-5.40); Red Cell Distribution Width 16.3 % (11.5-17.5); White Blood Count 9.9 K/mm3 (4.8-10.8)
[2020-05-21 14:31] LABS: Lymphocytes % 19.2 % (10-50); Monocytes % 7.1 % (1.7-9.3)
[2020-05-21 14:32] LABS: Basophils # 0.1 K/mm3 (0-0.2); Basophils % 0.9 % (0.1-2.0); Eosinophils # 0.5 K/mm3 (0.0-0.4); Eosinophils % 5.4 % (0.1-12.0); Lymphocytes # 1.9 K/mm3 (0.7-4.5); Monocytes # 0.7 K/mm3 (0.1-1.0); Neutrophils # 6.7 K/mm3 (1.8-7.8)
[2020-05-21 14:46] LABS: Eosinophils % 5 % (0-3); Lymphocytes % 7 % (10-50); Monocytes % 4 % (2-9); Neutrophils % 84 % (42-76); Platelet Estimate Normal; RBC Morphology Normal; Total Cells Counted 100
== END ==
PROVIDERS: Visit Provider Orthopaedic Surgery
DX: R94.5 Abnormal results of liver function studies (principal); R74.8 Abnormal levels of other serum enzymes; R79.82 Elevated C-reactive protein (CRP); R94.4 Abnormal results of kidney function studies
CPT/HCPCS: 80053; 82550; 85007; 85014; 85018; 85048; 85049; 86140

== ENCOUNTER → 2020-05-24 12:04 | Outpatient (CLI) | payer BC, MEDICARE, SELFPAY ==
[2020-05-24 12:49] LABS: Creatine Kinase 120 U/L (30-135)
== END ==
PROVIDERS: Visit Provider Orthopaedic Surgery
DX: N18.30 Chronic kidney disease, stage 3 unspecified (principal)
CPT/HCPCS: 82550

== ENCOUNTER → 2020-05-27 13:22 | Outpatient (CLI) | payer BC, MEDICARE, SELFPAY ==
[2020-05-27 13:55] LABS: Basophils # 0.1 K/mm3 (0-0.2); Basophils % 0.9 % (0.1-2.0); Eosinophils # 0.3 K/mm3 (0.0-0.4); Eosinophils % 3.1 % (0.1-12.0); Hemoglobin 10.8 g/dL (12.2-16.2); Lymphocytes # 1.7 K/mm3 (0.7-4.5); Lymphocytes % 17.1 % (10-50); Mean Corpuscular HGB Conc 31.6 g/dL (31.8-35.4); Mean Corpuscular Hemoglobin 31.8 pg (27.0-31.2); Mean Corpuscular Volume 100.4 fl (81-99); Mean Platelet Volume 8.3 fl (7.4-10.4); Monocytes # 0.7 K/mm3 (0.1-1.0); Monocytes % 6.7 % (1.7-9.3); Neutrophils # 7.1 K/mm3 (1.8-7.8); Neutrophils % 72.2 % (37.0-80.0); Platelet Count 392 K/mm3 (142-424); Red Blood Count 3.38 M/mm3 (4.20-5.40); Red Cell Distribution Width 15.5 % (11.5-17.5); White Blood Count 9.8 K/mm3 (4.8-10.8)
[2020-05-27 13:59] LABS: Chloride 100 mmol/L (98-107)
[2020-05-27 14:00] LABS: Potassium 3.5 mmoL/L (3.5-5.1); Sodium 128 mmol/L (136-145)
[2020-05-27 14:02] LABS: Alanine Aminotransferase 20 U/L (12-78); Aspartate Amino Transferase 40 U/L (14-36); Blood Urea Nitrogen 8 mg/dl (7-17); Estimated Glomerular Filt Rate 63 ml/min (>60); GFR (African American) 76 ML/MIN (>60)
[2020-05-27 14:03] LABS: Albumin Level 2.5 g/dl (3.5-5.0); Albumin/Globulin Ratio 0.8 (1.1-1.8); Alkaline Phosphatase 151 U/L (38-126); Anion Gap 9.5 mEq/L (5-15); Bilirubin,Total 0.5 mg/dl (0.2-1.3); Calcium 9.2 mg/dl (8.4-10.2); Carbon Dioxide 22 mmol/L (22.0-30.0); Creatine Kinase 267 U/L (30-135); Globulin 3.3 g/dL (1.3-3.2); Glucose 93 mg/dl (74-100); Total Protein,Serum 5.8 g/dl (6.3-8.2)
[2020-05-27 14:09] LABS: C-Reactive Protein 25.8 mg/L (0-4)
== END ==
PROVIDERS: Visit Provider Orthopaedic Surgery
DX: I13.0 Hypertensive heart and chronic kidney disease with heart failure and stage 1 through stage 4 chronic kidney disease, or unspecified chronic kidney disease (principal)
CPT/HCPCS: 80053; 82550; 85025; 86140

== ENCOUNTER → 2020-06-20 14:58 | Outpatient (CLI) | payer BC, MEDICARE, SELFPAY ==
[2020-06-20 15:00] LABS: Microscopic, Urine URINE MICROSCOPIC (MICROSCOPIC)
[2020-06-20 15:33] LABS: Appearance,Urine CLOUDY (Clear); Bilirubin,Urine Negative (Negative); Blood, Urine 3+ (Negative); Color,Urine YELLOW (Yellow); Glucose,Urine (UA) Negative (Negative); Ketones,Urine Negative (Negative); Leukocyte Esterase,Urine 3+ (Negative); Nitrate,Urine POSITIVE (Negative); PH,Urine 7.5 (5.0-8.5); Protein,Urine 1+ (Negative); Urobilinogen,Urine 0.2 EU/dl (0.2)
[2020-06-20 15:47] LABS: Amorphous Sediment,Urine 2+ /lpf; Bacteria,Urine 2+ /lpf
== END ==
PROVIDERS: Visit Provider Family Medicine
DX: N39.0 Urinary tract infection, site not specified (principal)
CPT/HCPCS: 81001; 87086; 87088; 87186

== ENCOUNTER 2020-06-27 14:43 | Observation (INO) | payer BC, MEDICARE, SELFPAY ==
[2020-06-27] VITALS (11 sets, daily range): BP systolic 100–159; BP diastolic 54–101; PULSE 64–78; RESP 16–18; TEMP 36.4–36.8; O2SAT 97–99; BMI 24.2; BMI 21.4
--- NOTE | 2020-06-27 15:19 | HMH.EDGENADL ---
ED Disposition Clinical Impression: Hypercalcemia, Hyponatremia, Pulmonary nodule Urinary tract infection Qualifiers: Urinary tract infection type: site unspecified Hematuria presence: without hematuria Qualified Code(s): N39.0 - Urinary tract infection, site not specified Disposition: Admitted as Observation Condition on Discharge: Serious - Critical Care Critical Care Time: Yes Attestation: On 06/27/20, the high probability of a clinically significant, sudden or life threatening deterioration of the following system(s) required my full and direct attention, intervention and personal management. The time I documented below is in addition to time spent performing reported procedures but includes the following listed in this critical care notation. Total Critical Care Time: 45 Vital system(s) involved:: Metabolic Failure My critical care processes included: Assessment & monitoring of V/S, Initial and Re-exams, Data Review/Interpretation, Coordinating Care, Medication Orders and management, Documentation Medical Decision Making - Medical Records Medical records reviewed: Yes: I reviewed the patient's medical records. MR Comment: Reviewed urine culture results. She had a urine culture on 06/20/2020 which was positive for Proteus mirabilis and E. coli. - Brant Inquiry Pt receiving controlled substance: No Vital Signs: 06/27/20 14:44 06/27/20 15:30 06/27/20 16:25 Temperature 97.6 F Temperature Source Oral Pulse Rate 76 74 Pulse Rate [Right] 78 Respiratory Rate 18 Blood Pressure 120/82 134/94 H Blood Pressure [Right Arm] 123/89 Blood Pressure Mean 94 107 Blood Pressure Mean [Right Arm] 100 02 Sat by Pulse Oximetry 97 97 98 Oxygen Delivery Method Room Air 06/27/20 16:26 06/27/20 16:27 06/27/20 16:30 Temperature Temperature Source Pulse Rate 74 72 72 Pulse Rate [Right] Respiratory Rate Blood Pressure 144/88 H 148/92 H 145/88 H Blood Pressure [Right Arm] Blood Pressure Mean 107 113 110 Blood Pressure Mean [Right Arm] 02 Sat by Pulse Oximetry 98 99 Oxygen Delivery Method - Lab Data Lab Results 06/27/20 16:42: WBC 7.8, RBC 3.91 L, Hgb 12.1 L, Hct 36.3 L, MCV 92.9, MCH 31.0, MCHC 33.4, RDW 13.5, Plt Count 267, MPV 8.4, Neut % (Auto) 71.7, Lymph % (Auto) 15.3, [place] % (Auto) 8.2, Eos % (Auto) 4.1, Baso % (Auto) 0.8, Neut # (Auto) 5.6, Lymph # (Auto) 1.2, [place] # (Auto) 0.6, Eos # (Auto) 0.3, Baso # (Auto) 0.1 06/27/20 16:42: Sodium 124 L, Potassium 3.6, Chloride 95 L, Carbon Dioxide 23, Anion Gap 9.6, BUN 12, Creatinine 1.30 H, Estimated Creat Clear 46, Estimated GFR 41 L, Est GFR ( Amer) 50 L, Glucose 72 L, Calcium 13.8 H*, Total Bilirubin 0.6, AST 31, ALT 8 L, Alkaline Phosphatase 129 H, C-Reactive Protein 5.4 H, Total Protein 6.2 L, Albumin 3.0 L, Globulin 3.2, Albumin/Globulin Ratio 0.9 L 06/27/20 16:42: ESR 39 H 06/27/20 16:50: Urine Color Yellow, Urine Appearance Sl cloudy, Urine pH 6.5, Ur Specific [place] 1.010, Urine Protein Negative, Urine Glucose (UA) Negative, Urine Ketones Trace, Urine Blood Trace-l, Urine Nitrate Negative, Urine Bilirubin Negative, Urine Urobilinogen 0.2, Ur Leukocyte Esterase 2+ A, Urine RBC Occasional, Urine WBC 10-20 A, Ur Squamous Epith Cells 10-20, Urine Bacteria None 06/27/20 17:55: Phosphorus 3.4, Magnesium 1.8 06/27/20 17:55: Lipase 40, PTH Intact 6.0 L 06/27/20 17:55: TSH 5.49 H, Free T4 Index 3.7 L, Thyroxine (T4) 8.5, T3 Uptake 43 H 06/27/20 17:55: Troponin I < 0.01 Result diagrams: 06/27/20 16:42 06/27/20 16:42 Orders (Tests/Meds): ED MEDICATIONS Generic Name Dose Route Start Last Admin Trade Name Freq PRN Reason Stop Dose Admin Ertapenem 1 gm/ Sodium 50 mls @ 100 mls/hr 06/27/20 18:00 06/27/20 18:52 Chloride IV 07/11/20 17:59 100 mls/hr Q24H TAJ Administration Protocol Sodium Chloride 8 ml 06/27/20 18:40 Sodium Chloride 0.9% 10ml Vial IV 07/27/20 18:39 NEEDED PRN dilute pepcid
--- NOTE | 2020-06-27 15:32 | CT_ITS ---
PROCEDURE: CT HEAD/BRAIN WO CON CLINICAL INDICATION: AMS Altered mental status, altered level of consciousness, confusion, disorientation COMPARISON: No exams were available for comparison TECHNIQUE: Axial images obtained. All CT scans at the facility use one or more dose reduction, viz: automated exposure control, ma/kV adjustment per patient size (including targeted exams where dose is matched to indication, i.e. head), or iterative reconstruction technique. FINDINGS: No midline shift, mass effect, intracranial hemorrhage, hydrocephalus, or extra-axial fluid collection is evident. There is generalized atrophy with hypoattenuation of the periventricular white matter consistent with microangiopathic changes. The calvarium has an unremarkable appearance. No mastoid effusion. No sinus air-fluid level. IMPRESSION: No acute intracranial finding Dictated by: Reg Millan MD 06/27/2020 16:19 Reg Millan MD in [place] 06/27/2020 16:19
--- NOTE | 2020-06-27 15:33 | XR_ITS ---
PROCEDURE: XR CHEST PORTABLE CLINICAL HISTORY: AMS Altered mental status, altered level of consciousness, confusion, disorientation COMPARISON: CR CXR CHEST(2 VIEWS-NOT PORTABLE) from 07/07/2016 DX CXR2V XR chest 2V from 01/25/2018 CR,CT [id number] XR chest portable PICC plac from 08/15/2018 FINDINGS: The cardiomediastinal silhouette and pulmonary vascularity are within normal limits. The lungs are clear without infiltrates, suspicious nodules, or pleural effusions. No acute bony abnormalities. Skin fold artifact noted on the left IMPRESSION: No acute findings. Dictated by: Reg Millan MD 06/28/2020 22:25 Reg Millan MD in [place] 06/28/2020 22:25
--- NOTE | 2020-06-27 15:34 | CT_ITS ---
PROCEDURE: CT ABDOMEN PELVIS WO CON CLINICAL INDICATION: kidney stone Urinary tract infection, possible kidney stone [facility] pelvis wo con from 11/01/2018 TECHNIQUE: Axial images obtained with sagittal and coronal reformats. All CT scans at the facility use one or more dose reduction, viz: automated exposure control, ma/kV adjustment per patient size (including targeted exams where dose is matched to indication, i.e. head), or iterative reconstruction technique. FINDINGS: LOWER THORAX: A 4 mm nodule is present in the right lower lobe anteriorly and is not demonstrated on the previous exam. 3 mm nodules present in the right middle lobe laterally. 4 mm nodules present in the right lung base centrally. There is minimal thickening of the pericardium centrally and anteriorly. There is a medium-sized hiatal hernia ABDOMEN & PELVIS: Cholelithiasis. No focal liver lesion demonstrated. The spleen has an unremarkable appearance. There is fatty infiltration of the pancreas small periportal lymph node is present at 13 mm. Duodenal diverticulum is present. There are 3 small stones in the lower pole of the right kidney measuring 2-3 mm. No hydronephrosis. No ureteral calculi. There is a moderate amount of retained colonic feces. No intestinal obstruction or free air. No evidence of appendicitis. There has been a prior hysterectomy. No pelvic mass or abnormal fluid collection. There is colonic diverticulosis but no evidence of diverticulitis. Prominent subcortical cystic changes are present within the right acetabular roof with osteoarthritic changes of both hips right greater than left. Postsurgical changes are present in the lumbar spine with metallic devices between the facets at L3-L4 and L4-5. There is 10 mm anterolisthesis of L4 on L5. Superior endplate compression changes are present at L2 unchanged. IMPRESSION: 1. Cholelithiasis 2. Nonobstructing right nephrolithiasis. 3. Moderate amount of retained colonic feces with diverticulosis. No evidence of diverticulitis. 4. There are 3 new nodular densities in the right lung base as described above. Consider [address] follow-up to confirm stability Dictated by: Reg Millan MD 06/27/2020 16:30 Reg Millan MD in [place] 06/27/2020 16:30
[2020-06-27 16:49] LABS: Basophils # 0.1 K/mm3 (0-0.2); Basophils % 0.8 % (0.1-2.0); Eosinophils # 0.3 K/mm3 (0.0-0.4); Eosinophils % 4.1 % (0.1-12.0); Hematocrit 36.3 % (37.0-47.0); Hemoglobin 12.1 g/dL (12.2-16.2); Lymphocytes # 1.2 K/mm3 (0.7-4.5); Lymphocytes % 15.3 % (10-50); Mean Corpuscular HGB Conc 33.4 g/dL (31.8-35.4); Mean Corpuscular Volume 92.9 fl (81-99); Mean Platelet Volume 8.4 fl (7.4-10.4); Monocytes # 0.6 K/mm3 (0.1-1.0); Monocytes % 8.2 % (1.7-9.3); Neutrophils # 5.6 K/mm3 (1.8-7.8); Neutrophils % 71.7 % (37.0-80.0); Platelet Count 267 K/mm3 (142-424); Red Blood Count 3.91 M/mm3 (4.20-5.40); Red Cell Distribution Width 13.5 % (11.5-17.5); White Blood Count 7.8 K/mm3 (4.8-10.8)
[2020-06-27 16:55] LABS: Chloride 95 mmol/L (98-107)
[2020-06-27 16:56] LABS: Potassium 3.6 mmoL/L (3.5-5.1); Sodium 124 mmol/L (136-145)
[2020-06-27 16:58] LABS: Alanine Aminotransferase 8 U/L (12-78); Albumin/Globulin Ratio 0.9 (1.1-1.8); Alkaline Phosphatase 129 U/L (38-126); Anion Gap 9.6 mEq/L (5-15); Aspartate Amino Transferase 31 U/L (14-36); Bilirubin,Total 0.6 mg/dl (0.2-1.3); Blood Urea Nitrogen 12 mg/dl (7-17); Carbon Dioxide 23 mmol/L (22.0-30.0); Creatinine Clearance Estimated 46 mL/min (50-200); Estimated Glomerular Filt Rate 41 ml/min (>60); GFR (African American) 50 ML/MIN (>60); Globulin 3.2 g/dL (1.3-3.2); Total Protein,Serum 6.2 g/dl (6.3-8.2)
[2020-06-27 16:59] LABS: Glucose 72 mg/dl (74-100)
[2020-06-27 17:03] LABS: Microscopic,Cath URINE MICROSCOPIC (MICROSCOPIC)
[2020-06-27 17:04] LABS: Appearance,Urine/Cath SL CLOUDY (Clear); Bilirubin,Cath Negative (Negative); Blood, Urine/Cath TRACE-L (Negative); Color,Urine/Cath YELLOW (Yellow); Glucose,Urine/Cath (UA) Negative (Negative); Ketones,Urine/Cath TRACE (Negative); Leukocyte Esterase,Cath 2+ (Negative); Nitrate,Cath Negative (Negative); PH,Urine/Cath 6.5 (5.0-8.5); Protein,Urine/Cath Negative (Negative); Urobilinogen,Cath 0.2 EU/dl (0.2)
[2020-06-27 17:05] LABS: C-Reactive Protein 5.4 mg/L (0-4)
--- NOTE | 2020-06-27 17:11 | PC.NURSE ---
critical labs called to jacquie patricio rn
[2020-06-27 17:12] LABS: Calcium 13.8 mg/dl (8.4-10.2)
--- NOTE | 2020-06-27 17:13 | PC.NURSE ---
MADE AWARE OF CRITICAL LAB AT THIS TIME
[2020-06-27 17:14] LABS: Erythrocyte Sedimentation Rate 39 mm/hr (0-30)
[2020-06-27 17:14] LABS: Amorphous Sediment,Ur/Cath 1+ /lpf; RBC,Urine/Cath Occasional # /hpf (0-3)
--- NOTE | 2020-06-27 17:26 | PC.NURSE ---
IV NOT ESTBLISHED. ONLY ABLE TO OBTAIN LABS. ANOTHER STAFF MEMBER AGREED TO ATTEMPT IV IN ORDER FOR PATIENT TO RECEIVE IV MEDICATIONS
[2020-06-27 18:14] LABS: Lipase 40 U/L (23-300)
[2020-06-27 18:15] LABS: Magnesium 1.8 mg/dl (1.6-2.3); Phosphorous 3.4 mg/dl (2.5-4.5)
--- NOTE | 2020-06-27 18:48 | PC.NURSE ---
Dr Hernández speaking to Dr ac.
--- NOTE | 2020-06-27 18:48 | PC.NURSE ---
Ultrasound IV obtained by LISBETH Sanchez from the floor.
[2020-06-27 19:00] LABS: Troponin I < 0.01 ng/ml (0.00-0.034)
--- NOTE | 2020-06-27 19:05 | PC.NURSE ---
IV INFILTRATED ONCE IV ANTIBIOTICS INITIATED INFUSION. DALI BOB STOPPED INFUSION IMMEDIATELY.
[2020-06-27 19:06] LABS: Free Thyroxine Index 3.7 ug/dL (5.93-13.13); T4 (Thyroxine) 8.5 ug/dl (5.53-11.0); Triiodothryronine (T3) Uptake 43 % (23.5-40.5)
--- NOTE | 2020-06-27 19:11 | PC.NURSE ---
AWARE OF IV INFILTRATION.
[2020-06-27 19:20] LABS: Thyroid Stimulating Hormone 5.49 uIU/mL (0.465-4.68)
--- NOTE | 2020-06-27 19:38 | ECG_ITS ---
APPROVED REPORT Exam: Resting ECG HR:85 bpm ECG Measurements Heart Rate 85 AXES TN 150 P 72 QRSd 86 QRS 84 QT 384 T 57 QTc 456 Conclusion Normal sinus rhythm Normal ECG Electronically signed by : Blu Birmingham, 06/28/2020 18:12:05
--- NOTE | 2020-06-27 20:29 | PC.NURSE ---
patient up to floor via stretcher.
--- NOTE | 2020-06-27 23:01 | PC.WOUNDNOTE ---
Wound Location: coccyx Length: Width: Depth: Undermining Y/N: Tunneling cm: Granulation %: Slough/necrotic tissue %: Inflammation/swelling Y/N: no Pain and/or tenderness Y/N: yes Odor Y/N:
--- NOTE | 2020-06-28 03:36 | PC.NURSE ---
PT is A&O x4 and slept well this shift. Pt c/o pain around coccyx from a stage 2 DTI. Pain meds given per mar with desired effects. Lungs CTA, on room air. Bowel sounds x4, abd soft and nontender. Drsg over coccyx CDI. Pt refused turns through the night. IV patent, NS @ 150. VSS, call light in reach, no concerns at this time.
[2020-06-28 05:28] VITALS: BMI 21.6
--- NOTE | 2020-06-28 07:26 | P.CONPHA_ITS ---
[facility] Pharmacy VTE Monitoring - Patient Demographics Admission date: 06/27/20 Report Date: 06/28/20 Time: 07:26 Allergies/Adverse Reactions: Patient Allergies amoxicillin [From Augmentin] Allergy (Severe, Verified 12/20/19 13:37) Rash clavulanic acid [From Augmentin] Allergy (Severe, Verified 12/20/19 13:37) Rash clarithromycin [From BIAXIN] Allergy (Unknown, Verified 12/20/19 13:37) Height: 1.68 m Weight: 60.98 kg Patient Problems: Current Active Problems UTI (urinary tract infection) (Acute) Hypercalcemia (Acute) Hyponatremia (Acute) Pulmonary nodule (Acute) - VTE Risk Labs: VTE Related Lab Results Hgb 12.1 g/dL (12.2-16.2) L 06/27/20 16:42 Hct 36.3 % (37.0-47.0) L 06/27/20 16:42 Plt Count 267 K/mm3 (142-424) 06/27/20 16:42 BUN 12 mg/dl (7-17) 06/27/20 16:42 Creatinine 1.30 mg/dl (0.52-1.04) H 06/27/20 16:42 Estimated Creat Clear 46 mL/min (50-200) 06/27/20 16:42 VTE Score: 4 VTE Risk Level: Low Risk - Prophylaxis VTE Prophylaxis Ordered?: Yes Types of VTE Prophylaxis: TEDS Knee High Location of Applied Device: Bilateral Lower Extremeties
[2020-06-28 08:00] VITALS: BP 116/68; PULSE 61; RESP 18; TEMP 36.6; O2SAT 100
--- NOTE | 2020-06-28 08:43 | CT_ITS ---
PROCEDURE: CT CHEST WO/W CON CLINCAL INDICATION: f/u pulmonary nodules; hypercalcemia COMPARISON: CT ABDPELWO CT abdomen pelvis wo con from 11/01/[address] ABDOMEN PELVIS WO CON from 06/27/2020 TECHNIQUE: IV Contrast: 75ml Isovue 370 Axial images obtained with sagittal and coronal reformats. All CT scans at the facility use one or more dose reduction, viz: automated exposure control, ma/kV adjustment per patient size (including targeted exams where dose is matched to indication, i.e. head), or iterative reconstruction technique. FINDINGS: HEART AND MEDIASTINAL STRUCTURES: , There is mild aortic tortuosity. There is minimal coronary artery calcification. There is mild thickening of the pericardium laterally. There are 2-3 normal size nodes right hilum. LUNGS AND PLEURAL SPACES: There is a 5 mm noncalcified nodule posterior segment right upper lobe. There is a 4 mm noncalcified nodule apical posterior segment left upper lobe. There is a 3 mm noncalcified nodule proximal aspect of the anterior segment left upper lobe. There is a 4 mm noncalcified nodule right perihilar region. There is a 5 mm noncalcified nodule lateral basilar segment right lower lobe. There is a 3 mm nodule subpleural location anterior basal segment right lower lobe. The lung lees are clear of infiltrate. There is no pleural fluid. There is a large hiatal hernia noted. BONY STRUCTURES: There are mild multilevel degenerate changes of the thoracic spine. UPPER ABDOMEN: There is a large amount of food particles within the stomach. ADDITIONAL FINDINGS: No other significant abnormalities. IMPRESSION: Multiple noncalcified pulmonary nodules as noted, suggest patient is a follow-up CT scan in 12 months for continuing evaluation per Fleischner society recommendations Dictated by: Dr. Jim Peters MD 06/28/2020 11:44 Dr. Jim Peters MD in [place] 06/28/2020 11:44
--- NOTE | 2020-06-28 08:43 | HMH.HP ---
*Admission Date: 06/27/20 <Carol Timmons 06/28/20 08:57> *Chief complaint: weakness, UTI <Carol Timmons 06/28/20 08:57> *History of present illness: Ms. Blair is a 64-year-old female who had been treated on an outpatient basis for a Proteus urinary tract infection. She had been started on Cipro and cultures grew Proteus which was pansensitive. The patient continued to have symptoms and felt poorly. She states she had not eaten for approximately 1 week. She began getting very weak and had a headache and was dizzy. She states she vomited 1 day but never had any diarrhea. She had some dysuria and body aches. She presented to the office yesterday and had some disorientation and was felt to be dehydrated. She was sent to the emergency room for further work-up. Of note she has had both of her knees removed. She had infections after knee replacements and had her prostheses removed in April. She is currently in bilateral knee braces and was able to get up with physical therapy and walk about 8 steps until she started getting sick again a couple of weeks ago. She was evaluated in the emergency room and her sed rate was found to be elevated. Her sodium and chloride were low and her renal function was elevated. Her calcium was also elevated at 13.8. She was admitted and started on IV fluids and IV antibiotics. <Carol Timmons 06/28/20 08:57> [facility] History I have reviewed the patient's past medical history: Yes <Carol Timmons 06/28/20 08:57> Medical History: Reports:: Cancer (cervical), Gastroesophageal Reflux Disease(GERD), Heart Murmur, Hyperlipidemia, Hypertension, Migraine, MRSA, Renal Insufficiency Denies:: Diabetes Mellitus Type 1, Diabetes Mellitus Type 2, Internal Pacemaker, Seizures <Carol Timmons 06/28/20 08:57> *Have you ever received a pneumonia vaccine?: Yes <Carol Timmons 06/28/20 08:57> *Have you received a flu vaccine this season?: Yes <Carol Timmons 06/28/20 08:57> Other Medical History: Reports: Arthritis. Denies: Blood Transfusion Reaction <Carol Timmons 06/28/20 08:57> Laterality Cases: Right: Breast Biopsy, Bilateral: Arthroscopy Knee, Other <Carol Timmons 06/28/20 08:57> Other Surgeries: Yes: Colonoscopy, Hysterectomy-Total, Other (Plantar fascia release, laminectomy, total right and left knee replacement). No: Pacemaker <Carol Timmons 06/28/20 08:57> Amputation: No <Carol Timmons 06/28/20 08:57> Fractures: No <Carol Timmons 06/28/20 08:57> Comment: Plantar fascia release, laminectomy, total right and left knee replacement with subsequent removal, patellar tendon repair bilaterally <Carol Timmons 06/28/20 08:57> - *Social History Last grade of school completed: Some college <Carol Timmons 06/28/20 08:57> Smoking Status: Never smoker <Carol Timmons 06/28/20 08:57> Alcohol Intake: never <Carol Timmons 06/28/20 08:57> Substance Use Type: denies use <Carol Timmons 06/28/20 08:57> *Occupational Status:: disabled <Carol Timmons 06/28/20 08:57> Housing: house <Carol Timmons 06/28/20 08:57> Household Members: spouse <Carol Timmons 06/28/20 08:57> *Travel in the last 8 weeks: None <Carol Timmons 06/28/20 08:57> Family Hx:: Cancer, Diabetes, Heart Attack <Carol Timmons 06/28/20 08:57> Review of Systems - Constitutional Reports fatigue, Reports headache(s), Reports lack of energy, Reports malaise, Reports weakness, Denies chills, Denies fever(s) <Carol Timmons 06/28/20 08:57> - Eyes Denies blurry vision, Denies double vision <Carol Timmons 06/28/20 08:57> - ENT Denies nasal congestion, Denies sore throat <Carol Timmons 06/28/20 08:57> - *Cardiovascular Denies chest pain, Denies shortness of breath <Carol Timmons 06/28/20 08:57> - *Respiratory Denies cough, Denies shortness of breath <Carol Timmons - 06/28/20 08:57> - *Gastrointestinal Reports abdominal pain (suprapubic), Reports nausea, Reports vomiting, Denies loose stools <Iain
[2020-06-28 09:19] LABS: 25-OH Vitamin D, Total 22.2 ng/mL (30-100)
[2020-06-28 10:14] LABS: Alanine Aminotransferase 6 U/L (12-78); Albumin Level 2.4 g/dl (3.5-5.0); Albumin/Globulin Ratio 0.9 (1.1-1.8); Alkaline Phosphatase 108 U/L (38-126); Anion Gap 8.4 mEq/L (5-15); Aspartate Amino Transferase 31 U/L (14-36); Bilirubin,Total 0.3 mg/dl (0.2-1.3); Blood Urea Nitrogen 11 mg/dl (7-17); Carbon Dioxide 20 mmol/L (22.0-30.0); Chloride 101 mmol/L (98-107); Creatinine Clearance Estimated 45 mL/min (50-200); Estimated Glomerular Filt Rate 45 ml/min (>60); GFR (African American) 55 ML/MIN (>60); Globulin 2.8 g/dL (1.3-3.2); Glucose 58 mg/dl (74-100); Potassium 3.4 mmoL/L (3.5-5.1); Sodium 126 mmol/L (136-145); Total Protein,Serum 5.2 g/dl (6.3-8.2)
--- NOTE | 2020-06-28 10:23 | PC.NURSE ---
Critical calcium level reported to Tamy CORRIGAN with Dr. Kendall's office.
[2020-06-28 10:42] LABS: Calcium 12.2 mg/dl (8.4-10.2)
--- NOTE | 2020-06-28 12:39 | HMH.PHAINT ---
home medication list verified using lists from [facility] and Dr Kendall's office
[2020-06-28 16:00] VITALS: BP 117/79; PULSE 61; RESP 17; TEMP 36.4; O2SAT 100
--- NOTE | 2020-06-28 17:00 | PC.NURSE ---
Routine reassessment completed. No acute changes since previous assessment. Pt. denies pain, reports small red area on lower abd, telfa patch applied. Pt. has slept through out the day. Pt. denies needs, will continue to monitor.
[2020-06-28 20:00] VITALS: BP 108/63; PULSE 66; RESP 16; TEMP 36.7; O2SAT 98
--- NOTE | 2020-06-28 21:00 | PC.NURSE ---
pt had no needs,restock gloves in room tech already did snacks. Rosey
--- NOTE | 2020-06-29 03:26 | PC.NURSE ---
No acute changes noted. Pt has slept well through the night, no c/o pain. Lungs CTA, on room air. Bowel sounds x4, abd soft and nontender. IV patent, NS @ 150. VSS, nai light in reach, no concerns at this time.
[2020-06-29 04:00] VITALS: BP 122/65; PULSE 74; RESP 20; TEMP 36.9; O2SAT 99
[2020-06-29 05:24] VITALS: BMI 21.9
--- NOTE | 2020-06-29 05:32 | PC.NURSE ---
pt has no needs. Ice water,trash,dirty linen and room straighten done by other tech lamar.Rosey
[2020-06-29 06:02] LABS: Basophils # 0.1 K/mm3 (0-0.2); Basophils % 0.9 % (0.1-2.0); Eosinophils # 0.3 K/mm3 (0.0-0.4); Eosinophils % 4.7 % (0.1-12.0); Hematocrit 32.8 % (37.0-47.0); Hemoglobin 10.6 g/dL (12.2-16.2); Lymphocytes % 16.1 % (10-50); Mean Corpuscular HGB Conc 32.2 g/dL (31.8-35.4); Mean Corpuscular Hemoglobin 30.8 pg (27.0-31.2); Mean Corpuscular Volume 95.6 fl (81-99); Mean Platelet Volume 8.7 fl (7.4-10.4); Monocytes # 0.5 K/mm3 (0.1-1.0); Monocytes % 7.5 % (1.7-9.3); Neutrophils # 4.3 K/mm3 (1.8-7.8); Neutrophils % 70.8 % (37.0-80.0); Platelet Count 191 K/mm3 (142-424); Red Blood Count 3.43 M/mm3 (4.20-5.40); Red Cell Distribution Width 13.6 % (11.5-17.5)
[2020-06-29 06:27] LABS: Alanine Aminotransferase 6 U/L (12-78); Albumin Level 2.2 g/dl (3.5-5.0); Albumin/Globulin Ratio 0.8 (1.1-1.8); Alkaline Phosphatase 111 U/L (38-126); Aspartate Amino Transferase 27 U/L (14-36); Bilirubin,Total 0.2 mg/dl (0.2-1.3); Blood Urea Nitrogen 7 mg/dl (7-17); Carbon Dioxide 19 mmol/L (22.0-30.0); Chloride 107 mmol/L (98-107); Creatinine Clearance Estimated 46 mL/min (50-200); Estimated Glomerular Filt Rate 45 ml/min (>60); GFR (African American) 55 ML/MIN (>60); Globulin 2.7 g/dL (1.3-3.2); Glucose 54 mg/dl (74-100); Sodium 132 mmol/L (136-145); Total Protein,Serum 4.9 g/dl (6.3-8.2)
[2020-06-29 06:28] LABS: Calcium 10.9 mg/dl (8.4-10.2)
[2020-06-29 07:43] VITALS: BP 124/76; PULSE 64; RESP 17; TEMP 36.6; O2SAT 99
--- NOTE | 2020-06-29 10:08 | PC.NURSE ---
Pt did refuse to take am potassium, this nurse informed pt that her level was 3.0 and she needed it. Also, offered to change foem to liquid and she stated no,her son would bring in her capsules from home. This nurse told her we would assess med and see if able to label and use per pharm.
--- NOTE | 2020-06-29 10:44 | HMH.ACPN2 ---
Internal Medicine - PN: Subj *Date: 06/29/20 *Time: 10:44 Interval history: She rested well through the night. She feels a little better. Still feels weak and does not have much appetite. She complains of low abdominal cramping pain. She has not had a bowel movement. She has not been out of bed. Exam Vital signs and Labs for Last 24 Hours: Temp Pulse Resp BP Pulse Ox 97.9 F 64 17 124/76 99 06/29/20 07:43 06/29/20 07:43 06/29/20 07:43 06/29/20 07:43 06/29/20 07:43 Laboratory Results - last 24 hr 06/29/20 05:30: WBC 6.0, RBC 3.43 L, Hgb 10.6 L, Hct 32.8 L, MCV 95.6, MCH 30.8, MCHC 32.2, RDW 13.6, Plt Count 191 D, MPV 8.7, Neut % (Auto) 70.8, Lymph % (Auto) 16.1, [place] % (Auto) 7.5, Eos % (Auto) 4.7, Baso % (Auto) 0.9, Neut # (Auto) 4.3, Lymph # (Auto) 1.0, [place] # (Auto) 0.5, Eos # (Auto) 0.3, Baso # (Auto) 0.1 06/29/20 05:30: Sodium 132 L, Potassium 3.0 L, Chloride 107, Carbon Dioxide 19 L, Anion Gap 9.0, BUN 7 D, Creatinine 1.20 H, Estimated Creat Clear 46, Estimated GFR 45 L, Est GFR ( Amer) 55 L, Glucose 54 L, Calcium 10.9 H D, Total Bilirubin 0.2, AST 27, ALT 6 L, Alkaline Phosphatase 111, Total Protein 4.9 L, Albumin 2.2 L, Globulin 2.7, Albumin/Globulin Ratio 0.8 L I & O for Last 24 hours: Intake & Output 06/26/20 06/27/20 06/28/20 06/29/20 11:59 11:59 11:59 11:59 Intake Total 1240 / 1240 3573 / 3573 Balance 1240 / 1240 3573 / 3573 Weight 134 lb 7 oz 136 lb 8 oz Microbiology Reports for the Last 24 Hours: Microbiology 06/27/20 16:50 Urine,Catheterized Urine Culture - Preliminary Radiology Reports for the Last 24 Hours: CT scan of chest shows multiple nonspecific pulmonary nodules with recommendation for follow-up in 12 months Narrative: She is lying flat in bed. She appears in no acute distress. Color is good. Lungs are clear to auscultation. Heart is regular. Abdomen is soft and nondistended with bowel sounds present. She has diffuse low abdominal tenderness. Extremities show no edema. Assessment and Plan (1) UTI (urinary tract infection) Status: Acute Qualifiers: Urinary tract infection type: site unspecified Hematuria presence: without hematuria Qualified Code(s): N39.0 - Urinary tract infection, site not specified Category: Medical Code(s): N39.0 - Urinary tract infection, site not specified (2) Hypercalcemia Status: Acute Category: Medical Code(s): E83.52 - Hypercalcemia (3) Hyponatremia Status: Acute Category: Medical Code(s): E87.1 - Hypo-osmolality and hyponatremia (4) Pulmonary nodule Status: Acute Category: Medical Code(s): R91.1 - Solitary pulmonary nodule (5) Abdominal pain Status: Acute Qualifiers: Abdominal location: right upper quadrant Qualified Code(s): R10.11 - Right upper quadrant pain Category: Medical Code(s): R10.9 - Unspecified abdominal pain (6) Dehydration Status: Acute Category: Medical Code(s): E86.0 - Dehydration (7) Disorientation Status: Acute Category: Medical Code(s): R41.0 - Disorientation, unspecified (8) Arthritis Status: Chronic Category: Medical Code(s): M19.90 - Unspecified osteoarthritis, unspecified site (9) Degenerative disc disease Status: Chronic Category: Medical (10) GERD (gastroesophageal reflux disease) Status: Chronic Category: Medical Code(s): K21.9 - Gastro-esophageal reflux disease without esophagitis (11) Hypertension Status: Chronic Category: Medical Code(s): I10 - Essential (primary) hypertension (12) Constipation Status: Acute Category: Medical Code(s): K59.00 - Constipation, unspecified (13) Decubitus skin ulcer Status: Acute Category: Medical Code(s): L89.90 - Pressure ulcer of unspecified site, unspecified stage - Assessment and plan all Dx Assessment and Plan for all problems:: CT of chest, abdomen, and pelvis are showing no obvious underlying cancer. Calcium is i
[2020-06-29 15:22] VITALS: BP 114/70; PULSE 67; RESP 17; TEMP 36.7; O2SAT 100
--- NOTE | 2020-06-29 16:47 | PC.NURSE ---
Pt alert and oriented x 3, person, place and situation, not time, do have to redirect pt on time. CB in reach. Pt is refusing to get up at this time and states she wants to wait to get up tomorrow when she has her knee braces. Have been turning pt q 2 hrs and encouraging pt to turn off coccyx. CB in reach and VSS. S1,S2, abd soft and non tender. Lungs cta. Pt now has potassium in IVF's and has taken her po potassium approved by pharmacy. Mx continues.
[2020-06-29 17:57] LABS: Calcium, Ionized 8.6 mg/dL (4.5-5.6)
--- NOTE | 2020-06-29 19:35 | PC.NURSE ---
Dsg applied to coccyx.
[2020-06-29 20:00] VITALS: BP 103/54; PULSE 82; RESP 17; TEMP 36.7; O2SAT 99
[2020-06-30] VITALS: BP 101/57; PULSE 75; RESP 17; TEMP 36.7; O2SAT 96
[2020-06-30 04:00] VITALS: BP 119/68; PULSE 72; RESP 17; TEMP 36.9; O2SAT 99
[2020-06-30 05:26] VITALS: BMI 21.5
--- NOTE | 2020-06-30 05:50 | PC.NURSE ---
pt has had 3 BM's this shfit. no acute changes. bath given and dressing changed to bottom. yeast noted to abdominal fold. iv patent and infusing per order. vss. call light in reach. will continue to monitor
[2020-06-30 06:30] LABS: Basophils # 0.1 K/mm3 (0-0.2); Basophils % 0.7 % (0.1-2.0); Eosinophils # 0.4 K/mm3 (0.0-0.4); Eosinophils % 5.2 % (0.1-12.0); Hematocrit 34.9 % (37.0-47.0); Hemoglobin 11.2 g/dL (12.2-16.2); Lymphocytes # 1.4 K/mm3 (0.7-4.5); Lymphocytes % 17.3 % (10-50); Mean Corpuscular HGB Conc 32.1 g/dL (31.8-35.4); Mean Corpuscular Hemoglobin 30.9 pg (27.0-31.2); Mean Platelet Volume 9.8 fl (7.4-10.4); Monocytes # 0.6 K/mm3 (0.1-1.0); Neutrophils # 5.6 K/mm3 (1.8-7.8); Neutrophils % 69.8 % (37.0-80.0); Platelet Count 199 K/mm3 (142-424); Red Blood Count 3.63 M/mm3 (4.20-5.40); Red Cell Distribution Width 13.8 % (11.5-17.5)
[2020-06-30 06:36] LABS: Chloride 112 mmol/L (98-107); Potassium 4.8 mmoL/L (3.5-5.1); Sodium 134 mmol/L (136-145)
[2020-06-30 06:39] LABS: Anion Gap 7.8 mEq/L (5-15); Blood Urea Nitrogen 6 mg/dl (7-17); Carbon Dioxide 19 mmol/L (22.0-30.0); Creatinine Clearance Estimated 54 mL/min (50-200); Estimated Glomerular Filt Rate 56 ml/min (>60); GFR (African American) 67 ML/MIN (>60)
[2020-06-30 06:40] LABS: Calcium 10.6 mg/dl (8.4-10.2); Glucose 51 mg/dl (74-100)
[2020-06-30 07:29] VITALS: BP 107/66; PULSE 68; RESP 17; TEMP 36.6; O2SAT 100
--- NOTE | 2020-06-30 08:55 | HMH.ACPN2 ---
Internal Medicine - PN: Subj *Date: 06/30/20 *Time: 08:55 Interval history: No new complaints this morning. States she had 2 good bowel movements overnight and stomach feels some better this morning. She still has a poor appetite. She did not get out of bed yesterday as she did not have her knee braces with her at the hospital. is bringing those in today. Exam Vital signs and Labs for Last 24 Hours: Temp Pulse Resp BP Pulse Ox 97.9 F 68 17 107/66 L 100 06/30/20 07:29 06/30/20 07:29 06/30/20 07:29 06/30/20 07:29 06/30/20 07:29 Laboratory Results - last 24 hr 06/27/20 17:55: Ionized Calcium 8.6 H 06/30/20 05:50: WBC 8.0 D, RBC 3.63 L, Hgb 11.2 L, Hct 34.9 L, MCV 96.0, MCH 30.9, MCHC 32.1, RDW 13.8, Plt Count 199, MPV 9.8, Neut % (Auto) 69.8, Lymph % (Auto) 17.3, [place] % (Auto) 7.0, Eos % (Auto) 5.2, Baso % (Auto) 0.7, Neut # (Auto) 5.6, Lymph # (Auto) 1.4, [place] # (Auto) 0.6, Eos # (Auto) 0.4, Baso # (Auto) 0.1 06/30/20 05:50: Sodium 134 L, Potassium 4.8 D, Chloride 112 H, Carbon Dioxide 19 L, Anion Gap 7.8, BUN 6 L, Creatinine 1.00, Estimated Creat Clear 54, Estimated GFR 56 L, Est GFR ( Amer) 67 D, Glucose 51 L, Calcium 10.6 H I & O for Last 24 hours: Intake & Output 06/27/20 06/28/20 06/29/20 06/30/20 11:59 11:59 11:59 11:59 Intake Total 1240 / 1240 3573 / 3573 3039 / 3039 Balance 1240 / 1240 3573 / 3573 3039 / 3039 Weight 134 lb 7 oz 136 lb 8 oz 134 lb 3 oz Microbiology Reports for the Last 24 Hours: Microbiology 06/27/20 16:50 Urine,Catheterized Urine Culture - Preliminary Gram Positive Cocci Narrative: Exam is unchanged Assessment and Plan (1) UTI (urinary tract infection) Status: Acute Qualifiers: Urinary tract infection type: site unspecified Hematuria presence: without hematuria Qualified Code(s): N39.0 - Urinary tract infection, site not specified Category: Medical Code(s): N39.0 - Urinary tract infection, site not specified (2) Hypercalcemia Status: Acute Category: Medical Code(s): E83.52 - Hypercalcemia (3) Hyponatremia Status: Acute Category: Medical Code(s): E87.1 - Hypo-osmolality and hyponatremia (4) Pulmonary nodule Status: Acute Category: Medical Code(s): R91.1 - Solitary pulmonary nodule (5) Abdominal pain Status: Acute Qualifiers: Abdominal location: right upper quadrant Qualified Code(s): R10.11 - Right upper quadrant pain Category: Medical Code(s): R10.9 - Unspecified abdominal pain (6) Dehydration Status: Acute Category: Medical Code(s): E86.0 - Dehydration (7) Disorientation Status: Acute Category: Medical Code(s): R41.0 - Disorientation, unspecified (8) Arthritis Status: Chronic Category: Medical Code(s): M19.90 - Unspecified osteoarthritis, unspecified site (9) Degenerative disc disease Status: Chronic Category: Medical (10) GERD (gastroesophageal reflux disease) Status: Chronic Category: Medical Code(s): K21.9 - Gastro-esophageal reflux disease without esophagitis (11) Hypertension Status: Chronic Category: Medical Code(s): I10 - Essential (primary) hypertension (12) Constipation Status: Acute Category: Medical Code(s): K59.00 - Constipation, unspecified (13) Decubitus skin ulcer Status: Acute Category: Medical Code(s): L89.90 - Pressure ulcer of unspecified site, unspecified stage - Assessment and plan all Dx Assessment and Plan for all problems:: Renal function improved. Calcium improved. Potassium now normal. Urine culture now growing gram-positive cocci with ID and sensitivities pending. Continue Invanz. Up in chair today. Possibly home soon.
--- NOTE | 2020-06-30 10:34 | PC.NURSE ---
Paged application helper MD for Dr. Kendall in RE to ionized calcium of 8.6 @ 1031. Elda in lab stated range was 4.5-5.6.
--- NOTE | 2020-06-30 10:37 | PC.NURSE ---
Dr. Bourgeois called back and was made aware of previous note RE lab value ionized calcium and stated NNO at this time.
[2020-06-30 15:18] VITALS: BP 102/67; PULSE 80; RESP 20; TEMP 36.8; O2SAT 96
--- NOTE | 2020-06-30 19:00 | PC.NURSE ---
Pt alert and oriented x 4. RR even and unlabored. CB in reach. Did attempt to get pt up today with leg braces and it was unsuccessful. Pt is weak. Have encouraged pt to eat, and gave chocolate ensure. Explained the need for nutrition. Have turned and repositioned q 2 hrs and applied dsg to coccyx. Meds given per jun. VSS. Lungs cta, s1,s2.
[2020-06-30 20:00] VITALS: BP 114/70; PULSE 68; RESP 20; TEMP 36.8; O2SAT 99
[2020-07-01 04:00] VITALS: BP 123/64; PULSE 76; RESP 16; TEMP 36.7; O2SAT 98
--- NOTE | 2020-07-01 04:19 | PC.NURSE ---
Pt. has not c/o pain, n/v, soa or dizziness. Has had several episodes of small soft stools. Dsg to buttocks in place, c/d/i. Pt. q2h t/r.
[2020-07-01 05:00] VITALS: BMI 23.2
--- NOTE | 2020-07-01 05:11 | PC.NURSE ---
Nurse Roman aware of weight gain of 60.8 kg to 65.5 kg.
--- NOTE | 2020-07-01 07:58 | HMH.ACPN2 ---
<Dahlia Leigh - Last Filed: 07/01/20 07:58> Internal Medicine - PN: Subj *Date: 07/01/20 *Time: 07:58 Interval history: Patient feels weak. Slept at intervals. Food makes her gag. But she does denies nausea and has not vomited. Bowels did move yesterday. She reports tenderness in her lower mid and right quadrant. She denies chest pain and shortness of breath. Leg braces were placed on yesterday. She was unable to stand/ambulate to get out of bed. She just felt weak and some dizziness. She states at home she had just started being able to walk and could walk 8 steps. Exam Vital signs and Labs for Last 24 Hours: Temp Pulse Resp BP Pulse Ox 98.0 F 76 16 123/64 98 07/01/20 04:00 07/01/20 04:00 07/01/20 04:00 07/01/20 04:00 07/01/20 04:00 I & O for Last 24 hours: Intake & Output 06/28/20 06/29/20 06/30/20 07/01/20 11:59 11:59 11:59 11:59 Intake Total 1240 / 1240 3573 / 3573 3039 / 3039 2701 / 2701 Output Total Balance 1240 / 1240 3573 / 3573 3038 / 3038 2701 / 2701 Weight 134 lb 7 oz 136 lb 8 oz 134 lb 3 oz 144 lb 9 oz Microbiology Reports for the Last 24 Hours: Microbiology 06/27/20 16:50 Urine,Catheterized Urine Culture - Preliminary Gram Positive Cocci Gram Positive Cocci#2 - Constitutional no acute distress - *Routine Respiratory Exam Present: CTA bilaterally (A&P) - *Routine Cardiovascular Exam Present: RRR - *Routine Abdominal Exam Present: soft, normoactive bowel sounds, tenderness. Absent: distended (Pelvic region and lower right quadrant) - *Routine Extremities Exam Present: edema (trace), calf tenderness - *Routine Neurological Exam Present: alert, oriented X3 Assessment and Plan (1) UTI (urinary tract infection) Status: Acute Qualifiers: Urinary tract infection type: site unspecified Hematuria presence: without hematuria Qualified Code(s): N39.0 - Urinary tract infection, site not specified Category: Medical Code(s): N39.0 - Urinary tract infection, site not specified (2) Hypercalcemia Status: Acute Category: Medical Code(s): E83.52 - Hypercalcemia (3) Hyponatremia Status: Acute Category: Medical Code(s): E87.1 - Hypo-osmolality and hyponatremia (4) Pulmonary nodule Status: Acute Category: Medical Code(s): R91.1 - Solitary pulmonary nodule (5) Abdominal pain Status: Acute Qualifiers: Abdominal location: right upper quadrant Qualified Code(s): R10.11 - Right upper quadrant pain Category: Medical Code(s): R10.9 - Unspecified abdominal pain (6) Dehydration Status: Acute Category: Medical Code(s): E86.0 - Dehydration (7) Disorientation Status: Acute Category: Medical Code(s): R41.0 - Disorientation, unspecified (8) Arthritis Status: Chronic Category: Medical Code(s): M19.90 - Unspecified osteoarthritis, unspecified site (9) Degenerative disc disease Status: Chronic Category: Medical (10) GERD (gastroesophageal reflux disease) Status: Chronic Category: Medical Code(s): K21.9 - Gastro-esophageal reflux disease without esophagitis (11) Hypertension Status: Chronic Category: Medical Code(s): I10 - Essential (primary) hypertension (12) Constipation Status: Acute Category: Medical Code(s): K59.00 - Constipation, unspecified (13) Decubitus skin ulcer Status: Acute Category: Medical Code(s): L89.90 - Pressure ulcer of unspecified site, unspecified stage - Assessment and plan all Dx Assessment and Plan for all problems:: Urine culture with pending IDs and sensitivities.. We will continue with current Invanz and IV fluids at 100 an hour. Occupational and physical therapy consult. <Juan José Kendall - Last Filed: 07/01/20 08:31> Internal Medicine - PN: Subj *Date: 07/01/20 *Time: 08:30 Exam Vital signs and Labs for Last 24 Hours: Temp Pulse Resp BP P
[2020-07-01 08:00] VITALS: BP 117/69; PULSE 77; RESP 14; TEMP 36.7; O2SAT 99
--- NOTE | 2020-07-01 08:05 | HMH.ACPN ---
Internal Medicine - PN: Subj *Date: 07/01/20 *Time: 08:05 Exam Vital signs and Labs for Last 24 Hours: Temp Pulse Resp BP Pulse Ox 98.0 F 76 16 123/64 98 07/01/20 04:00 07/01/20 04:00 07/01/20 04:00 07/01/20 04:00 07/01/20 04:00 I & O for Last 24 hours: Intake & Output 06/28/20 06/29/20 06/30/20 07/01/20 23:59 23:59 23:59 23:59 Intake Total 3573 / 3573 1410 / 1410 3189 / 3189 1381 / 1381 Output Total Balance 3573 / 3573 1410 / 1410 3188 / 3188 1381 / 1381 Weight 60.98 kg 61.915 kg 60.866 kg 65.572 kg Microbiology Reports for the Last 24 Hours: Microbiology 06/27/20 16:50 Urine,Catheterized Urine Culture - Preliminary Gram Positive Cocci Gram Positive Cocci#2 Assessment and Plan (1) UTI (urinary tract infection) Status: Acute Qualifiers: Qualified Code(s): N39.0 - Urinary tract infection, site not specified Category: Medical Code(s): N39.0 - Urinary tract infection, site not specified (2) Hypercalcemia Status: Acute Category: Medical Code(s): E83.52 - Hypercalcemia (3) Hyponatremia Status: Acute Category: Medical Code(s): E87.1 - Hypo-osmolality and hyponatremia (4) Pulmonary nodule Status: Acute Category: Medical Code(s): R91.1 - Solitary pulmonary nodule (5) Abdominal pain Status: Acute Qualifiers: Qualified Code(s): R10.11 - Right upper quadrant pain Category: Medical Code(s): R10.9 - Unspecified abdominal pain (6) Dehydration Status: Acute Category: Medical Code(s): E86.0 - Dehydration (7) Disorientation Status: Acute Category: Medical Code(s): R41.0 - Disorientation, unspecified (8) Arthritis Status: Chronic Category: Medical Code(s): M19.90 - Unspecified osteoarthritis, unspecified site (9) Degenerative disc disease Status: Chronic Category: Medical (10) GERD (gastroesophageal reflux disease) Status: Chronic Category: Medical Code(s): K21.9 - Gastro-esophageal reflux disease without esophagitis (11) Hypertension Status: Chronic Category: Medical Code(s): I10 - Essential (primary) hypertension (12) Constipation Status: Acute Category: Medical Code(s): K59.00 - Constipation, unspecified (13) Decubitus skin ulcer Status: Acute Category: Medical Code(s): L89.90 - Pressure ulcer of unspecified site, unspecified stage The patient's infection will respond to the chosen ABx?: Yes (EMPIRIC TREATMENT UTI) Is the patient receiving the right drug, dose, and route?: Yes Could a more targeted ABx be ordered?: No (AWAITING CULTURE RESULTS)
--- NOTE | 2020-07-01 08:27 | XR_ITS ---
PROCEDURE: XR ABDOMEN MIN 2V CLINICAL INDICATION: low abdominal pain COMPARISON: No exams were available for comparison FINDINGS: Few mildly dilated loops of small and large bowel are noted. Moderate fecal retention of the rectosigmoid colon. Few air-fluid levels are noted in the abdomen on the upright view, nonspecific. No evidence of obstruction. Interpedicular screws noted at L3 and L4 levels. Degenerative changes of the bilateral sacroiliac and hip joints. IMPRESSION: Moderate fecal retention of the rectosigmoid colon. Few non-specific air-fluid levels on the upright view. Dictated by: Faviola Guillen 07/01/2020 10:20 Faviola Guillen in OV 07/01/2020 10:20
--- NOTE | 2020-07-01 09:51 | HMH.OTEV ---
OT Inpatient Evaluation Rehab OT IP Evaluation Start: 07/01/20 08:10 Freq: ONCE Status: Complete Protocol: Document 07/01/20 09:33 ISINICHO (Rec: 07/01/20 09:51 [email or web address] [id number]) Rehab OT IP Assessment Subjective History Ms. Blair is a 64-year-old female who had been treated on an outpatient basis for a Proteus urinary tract infection. She had been started on Cipro and cultures grew Proteus which was pansensitive. The patient continued to have symptoms and felt poorly. She states she had not eaten for approximately 1 week. She began getting very weak and had a headache and was dizzy. She states she vomited 1 day but never had any diarrhea. She had some dysuria and body aches. She presented to the office yesterday and had some disorientation and was felt to be dehydrated. She was sent to the emergency room for further work-up.Of note she has had both of her knees removed. She had infections after knee replacements and had her prostheses removed in April. She is currently in bilateral knee braces and was able to get up with physical therapy and walk about 8 steps until she started getting sick again a couple of weeks ago. She was evaluated in the emergency room and her sed rate was found to be elevated. Her sodium and chloride were low and her renal function was elevated. Her calcium was also elevated at 13.8. She was admitted and started on IV fluids and IV antibiotics. Patient verbalize living with in 1 story home with no DELIA. Patient verbalize having a half step to enter
--- NOTE | 2020-07-01 11:28 | HMH.PTEV ---
Physical Therapy Evaluation Rehab PT IP Evaluation Start: 07/01/20 08:10 Freq: ONCE Status: Active Protocol: Document 07/01/20 11:21 ERIKA (Rec: 07/01/20 11:28 ERIKA [id number]) Subjective/History History History This is the initial IP PT evaluation for Trudi Blair. Pt is a 64 y/o female admitted to [facility] thru ED for AMS and UTI. Pt has complicated medical history affecting mobility including removal of B knees. 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 Pt has not had revision and now has no knees. Pt has been seeing HHPT and using knee immobilizers to ambulate very few steps at home w/ PT. Pt has and aids which provide total care and assist around the clock. Pt needs maximal assistance to transfer, toilet , ambulate, bed mobility, and self care at home Subjective Subjective Pt c/o stomach pain not nausea Rehab PT IP Eval Objective Appearance Patient Behavior Appropriate,Cooperative Patient Orientation Person,Place,Time Difficulty following instructions none Speech Pattern Appropriate Ambulation Patient Able to Ambulate No Balance Ability to Arise Unable Sitting Balance Steady, safe Standing Balance Unsteady Dynamic Sitting Balance Ability Poor Dynamic Standing Balance Ability Zero Transfers Bed Transfer Ability Maximum x 1 (75% assist) Sit to Stand Bed Transfer Ability Total/Dependent (100%) ROM All Extremities Abnormal ROM Comment BLE abnormal severe lack of flexion in B knees MMT All Extremities PT MMT ABN Abnormal MMT Grade BLE abnormal Rehab PT IP prob,goals,plan Problems Date of Evaluation: 07/01/20 PT IP Problems Bed Mobility,Transfers,Gait, Balance,Self care,Safety Rehab Potential Rehab Potential Poor Equipment Needs Assistive Devices Standard Walker,Rolling / Wheeled Walker Plan PT Intervention Plan Bed Mobility,Transf
[2020-07-01 12:02] VITALS: BMI 23.3
--- NOTE | 2020-07-01 14:11 | SW/DCPLANNER ---
Addendum entered by Elda Kruger 07/02/20 11:30: Nithya with [facility] has confirmed that patient information has been reviewed and services will resume tomorrow for this patient. Addendum entered by Elda Kruger 07/02/20 09:39: This patient will discharge home today. I have faxed patient information/order for resumption of care to [facility]. Patient has no other needs at home at this time. Original Note: I have spoke with this patient regarding discharge plans. Patient stated that she intends on returning home at time of discharge. Patient stated that she currently receives services from [facility]: this will be resumed at discharge. Patient stated that she has all needed DME at home and has two different sitters. Patient stated that she resides with her and sitters are present when he is at work. Patient had no further needs at this time. I will continue to follow up with this patient until medically stable for discharge.
[2020-07-01 14:46] LABS: Chloride 112 mmol/L (98-107)
[2020-07-01 14:47] LABS: Potassium 3.8 mmoL/L (3.5-5.1); Sodium 135 mmol/L (136-145)
[2020-07-01 14:49] LABS: Blood Urea Nitrogen 5 mg/dl (7-17); Creatinine Clearance Estimated 58 mL/min (50-200); Estimated Glomerular Filt Rate 72 ml/min (>60); GFR (African American) 87 ML/MIN (>60)
[2020-07-01 14:50] LABS: Anion Gap 5.8 mEq/L (5-15); Calcium 9.8 mg/dl (8.4-10.2); Carbon Dioxide 21 mmol/L (22.0-30.0); Glucose 119 mg/dl (74-100)
[2020-07-01 16:00] VITALS: BP 106/71; PULSE 77; RESP 14; TEMP 36.6; O2SAT 98
--- NOTE | 2020-07-01 16:30 | PC.NURSE ---
Pt has been pleasant this shift. Pt is now in contact precautions r/t positive urine culture for MRSA. Pt has been a q2h turn and PRN turn this shift. Pt remains incontinent of bowel and urine this shift. Lung sounds CTA. Appetite still remains poor, pt has been encouraged to drink ensures this shift but has refused every time. No other acute changes or complaints at this time.
[2020-07-01 19:17] VITALS: BP 100/63; PULSE 80; RESP 20; TEMP 36.7; O2SAT 98
[2020-07-02 03:38] VITALS: BP 123/71; PULSE 72; RESP 20; TEMP 36.7; O2SAT 99
[2020-07-02 05:00] VITALS: BMI 23.8
--- NOTE | 2020-07-02 06:00 | PC.NURSE ---
Able to state name, , year and place. Pt. has had one large soft/loose bm. Q2h t/r with dsg to buttocks; c/d/i. TEDS in place with ble elevated; noted +3 nonpitting edema to ble. No c/o pain, n/v, soa or dizziness.
[2020-07-02 07:53] VITALS: BP 135/68; PULSE 88; RESP 17; TEMP 36.6; O2SAT 99
[2020-07-02 08:00] VITALS: O2SAT 99
--- NOTE | 2020-07-02 08:10 | HMH.ACPN2 ---
<Dahlia Leigh - Last Filed: 07/02/20 08:10> Internal Medicine - PN: Subj *Date: 07/02/20 *Time: 08:10 Interval history: Patient continues to be weak. She states she is awakened every 2 hours and sleeps in between times. She sat on the side of the bed yesterday with physical therapy and became dizzy. Stomach remains sore. She denies nausea. Bowels are moving. She did drink a supplement for breakfast. She denies chest pain and shortness of breath. Urine positive for MRSA. Sensitive to Bactrim and antibiotic changed to this. Exam Vital signs and Labs for Last 24 Hours: Temp Pulse Resp BP Pulse Ox 97.9 F 88 17 135/68 99 07/02/20 07:53 07/02/20 07:53 07/02/20 07:53 07/02/20 07:53 07/02/20 07:53 Laboratory Results - last 24 hr 07/01/20 14:30: Sodium 135 L, Potassium 3.8 D, Chloride 112 H, Carbon Dioxide 21 L, Anion Gap 5.8, BUN 5 L, Creatinine 0.80, Estimated Creat Clear 58, Estimated GFR 72, Est GFR ( Amer) 87 D, Glucose 119 H, Calcium 9.8 I & O for Last 24 hours: Intake & Output 06/29/20 06/30/20 07/01/20 07/02/20 11:59 11:59 11:59 11:59 Intake Total 3573 / 3573 3039 / 3039 2941 / 2941 3288 / 3288 Output Total Balance 3573 / 3573 3038 / 3038 2941 / 2941 3288 / 3288 Weight 136 lb 8 oz 134 lb 3 oz 144 lb 9 oz 148 lb 9 oz Microbiology Reports for the Last 24 Hours: Microbiology 06/27/20 16:50 Urine,Catheterized Urine Culture - Preliminary Staphylococcus aureus Gram Positive Cocci#2 - Constitutional no acute distress Comments: Can sit up in the bed independently for assessment - *Routine Respiratory Exam Present: diminished air movement (And right lower lobe posteriorly) - *Routine Cardiovascular Exam Present: RRR - *Routine Abdominal Exam Present: soft, normoactive bowel sounds, tenderness (Diffuse) - *Routine Extremities Exam Present: edema, ALICIA stockings - *Routine Neurological Exam Present: alert, oriented X3 Assessment and Plan (1) UTI (urinary tract infection) Status: Acute Qualifiers: Urinary tract infection type: site unspecified Hematuria presence: without hematuria Qualified Code(s): N39.0 - Urinary tract infection, site not specified Category: Medical Code(s): N39.0 - Urinary tract infection, site not specified (2) Hypercalcemia Status: Acute Category: Medical Code(s): E83.52 - Hypercalcemia (3) Hyponatremia Status: Acute Category: Medical Code(s): E87.1 - Hypo-osmolality and hyponatremia (4) Pulmonary nodule Status: Acute Category: Medical Code(s): R91.1 - Solitary pulmonary nodule (5) Abdominal pain Status: Acute Qualifiers: Abdominal location: right upper quadrant Qualified Code(s): R10.11 - Right upper quadrant pain Category: Medical Code(s): R10.9 - Unspecified abdominal pain (6) Dehydration Status: Acute Category: Medical Code(s): E86.0 - Dehydration (7) Disorientation Status: Acute Category: Medical Code(s): R41.0 - Disorientation, unspecified (8) Arthritis Status: Chronic Category: Medical Code(s): M19.90 - Unspecified osteoarthritis, unspecified site (9) Degenerative disc disease Status: Chronic Category: Medical (10) GERD (gastroesophageal reflux disease) Status: Chronic Category: Medical Code(s): K21.9 - Gastro-esophageal reflux disease without esophagitis (11) Hypertension Status: Chronic Category: Medical Code(s): I10 - Essential (primary) hypertension (12) Constipation Status: Acute Category: Medical Code(s): K59.00 - Constipation, unspecified (13) Decubitus skin ulcer Status: Acute Category: Medical Code(s): L89.90 - Pressure ulcer of unspecified site, unspecified stage (14) MRSA infection Status: Acute Category: Medical Code(s): A49.02 - Methicillin resistant Staphylococcus aureus infection, unspecified site - Assessment an
[2020-07-03 15:12] LABS: Albumin 2.2 g/dL (2.9-4.4); Alpha-1-Globulin 0.2 g/dL (0.0-0.4); Alpha-2-Globulin 0.5 g/dL (0.4-1.0); Protein, Total 4.6 g/dL (6.0-8.5)
--- NOTE | 2020-07-05 12:52 | HMH.DCSUM ---
General - General Admission date:: 06/27/20 <Juan José Kendall - 07/29/20 22:13> 06/27/20 <Carol Timmons - 07/05/20 13:01> Discharge date: 07/02/20 <Carol Timmons - 07/05/20 13:01> HPI HPI: Ms. Blair is a 64-year-old female who had been treated on an outpatient basis for a Proteus urinary tract infection. She had been started on Cipro and cultures grew Proteus which was pansensitive. The patient continued to have symptoms and felt poorly. She states she had not eaten for approximately 1 week. She began getting very weak and had a headache and was dizzy. She states she vomited 1 day but never had any diarrhea. She had some dysuria and body aches. She presented to the office yesterday and had some disorientation and was felt to be dehydrated. She was sent to the emergency room for further work-up. Of note she has had both of her knees removed. She had infections after knee replacements and had her prostheses removed in April. She is currently in bilateral knee braces and was able to get up with physical therapy and walk about 8 steps until she started getting sick again a couple of weeks ago. She was evaluated in the emergency room and her sed rate was found to be elevated. Her sodium and chloride were low and her renal function was elevated. Her calcium was also elevated at 13.8. She was admitted and started on IV fluids and IV antibiotics. <Carol Timmons - 07/05/20 13:01> Hospital Course Hospital Course: The patient's head CT showed nothing acute. Her abdominal CT showed cholelithiasis, a moderate amount of retained colonic feces, and 3 nodular densities in the right lung base. Radiology recommended a chest CT. She was admitted and started on IV Invanz and IV fluids for her urinary tract infection and dehydration. A chest CT was ordered due to her lung nodules and a vitamin D and PTH related peptide were ordered due to her hypercalcemia. It was felt her altered mental status was multifactorial related to her UTI, dehydration, and hypercalcemia. Her hypercalcemia did not appear to be parathyroid mediated as her PTH was low. The CT of her chest showed multiple nonspecific pulmonary nodules with recommendation for a 12-month follow-up. Her calcium improved with hydration. Her potassium was low and had to be replaced. She was started on stool softeners and MiraLAX for constipation. She had 2 good bowel movements and her abdominal pain improved. Her calcium improved and her potassium normalized. Her renal functions improved as well. She was continued on antibiotics. Her brought her leg braces and they were placed on the patient, however she was unable to stand to get out of the bed. She continued to remain weak. At home she had just started being able to walk a few steps. Occupational and physical therapy were consulted. Occupational Therapy felt she would need to continue with home health therapy services. Physical therapy was in agreement that she could return home with home health services and 24-hour supervision. She did continue to complain of some abdominal pain, therefore an abdominal x-ray was ordered. It showed moderate fecal retention in the rectosigmoid colon. Her urine culture came back positive for MRSA which was sensitive to Bactrim. Her antibiotics were changed to Bactrim p.o. She was able to sit on the side of the bed with physical therapy. She was adamant she could go home with home health and her sitters and she was stable for discharge. <Carol Timmons - 07/05/20 13:01> Objective Vital signs: Temp Pulse Resp BP Pulse Ox 97.9 F 88 17 135/68 99 07/02/20 07:53 07/02/20 07:53 07/02/20 07:53 07/02/20 07:53 07/02/20 08:00 <Juan José Kendall - 07/29/20 22:13> Temp Pulse Resp BP Pulse Ox 97.9 F 88 17 135/68 99 07/02/20 07:53 07/02/20 07:53 07/02/20 07:53 07/02/20 07:53 07/02/20 08:00 <Carol Timmons - 07/05/20 13:01> Arias
[2020-07-06 14:50] LABS: 1,25 Dihydroxy Vitamin D 22 pg/mL (.); 1,25-Dihydroxy, Vitamin D-2 <10 pg/mL (.); 1,25-Dihydroxy, Vitamin D-3 20 pg/mL (.)
== END 2020-07-02 11:15 | disposition home health service (06) ==
LOC: ER 19:02 → 2ND 19:30
PROVIDERS: Admitting Provider Family Medicine; Emergency Provider Emergency Medicine; PCP Family Medicine; Visit Provider Family Medicine
DX: N39.0 Urinary tract infection, site not specified (principal); Z88.1 Allergy status to other antibiotic agents; Z79.899 Other long term (current) drug therapy; E83.52 Hypercalcemia; E87.1 Hypo-osmolality and hyponatremia; R10.11 Right upper quadrant pain; E86.0 Dehydration; I10 Essential (primary) hypertension; K21.9 Gastro-esophageal reflux disease without esophagitis; R91.1 Solitary pulmonary nodule; K59.00 Constipation, unspecified; L89.159 Pressure ulcer of sacral region, unspecified stage; Z96.653 Presence of artificial knee joint, bilateral
CPT/HCPCS: 36415; 70450; 71045; 71270; 74019; 74176; 80048; 80053; 81001; 82306; 82330; 82652; 83690; 83735; 83970; 84100; 84155; 84165; 84436; 84443; 84479; 84484; 85025; 85651; 86140; 87086; 87088; 87186; 93005; 96365; 96375; 97116; 97163; 97165; 97530; 99281; G0378; J1335; Q9967; U0003

== ENCOUNTER → 2020-12-06 17:05 | Outpatient (CLI) | payer BC, MEDICARE, SELFPAY ==
--- NOTE | 2020-12-06 17:16 | XR_ITS ---
PROCEDURE INFORMATION: Exam: XR Right Knee Exam date and time: 12/06/2020 5:16 PM Age: 65 years old Clinical indication: Pain; Knee; Left; Prior surgery; Surgery date: 6+ months; Additional info: RT knee pain TECHNIQUE: Imaging protocol: XR Right knee. Views: 3 views. COMPARISON: CR [id number] [id number] [id number] 05/12/2016 12:39 PM FINDINGS: Bones/joints: There is large amount of methylmethacrylate between the distal femur and the proximal tibia. There is large defect in the proximal tibia that is filled with methylmethacrylate. . Lucency between the distal femur and the methylmethacrylate seen on the lateral may represent unhealed area. The patella is displaced inferiorly and is now anterior to the proximal tibia. Soft tissues: Percutaneous pin through the distal femur across the knee joint and into the proximal tibia.. IMPRESSION: 1. Percutaneous pin through the distal femur across the knee joint and into the proximal tibia.. 2. There is large amount of methylmethacrylate between the distal femur and the proximal tibia. There is large defect in the proximal tibia that is filled with methylmethacrylate. . 3. Lucency between the distal femur and the methylmethacrylate seen on the lateral may represent unhealed area. 4. The patella is displaced inferiorly and is now anterior to the proximal tibia.
[2020-12-06 18:33] LABS: Basophils # 0.1 K/mm3 (0-0.2); Lymphocytes # 1.6 K/mm3 (0.7-4.5)
[2020-12-06 18:40] LABS: Basophils % 0.7 % (0.1-2.0); Eosinophils # 0.3 K/mm3 (0.0-0.4); Eosinophils % 2.7 % (0.1-12.0); Hematocrit 35.8 % (37.0-47.0); Mean Corpuscular HGB Conc 30.8 g/dL (31.8-35.4); Mean Corpuscular Hemoglobin 28.1 pg (27.0-31.2); Mean Corpuscular Volume 91.2 fl (81-99); Mean Platelet Volume 9.2 fl (7.4-10.4); Monocytes # 0.6 K/mm3 (0.1-1.0); Monocytes % 5.5 % (1.7-9.3); Neutrophils # 7.5 K/mm3 (1.8-7.8); Neutrophils % 75.1 % (37.0-80.0); Platelet Count 616 K/mm3 (142-424); Red Blood Count 3.92 M/mm3 (4.20-5.40); Red Cell Distribution Width 13.2 % (11.5-17.5)
[2020-12-06 19:09] LABS: Chloride 100 mmol/L (98-107); Potassium 4.2 mmoL/L (3.5-5.1); Sodium 132 mmol/L (136-145)
[2020-12-06 19:12] LABS: Alanine Aminotransferase 7 U/L (12-78); Albumin Level 2.8 g/dl (3.5-5.0); Albumin/Globulin Ratio 0.8 (1.1-1.8); Alkaline Phosphatase 167 U/L (38-126); Anion Gap 13.2 mEq/L (5-15); Aspartate Amino Transferase 20 U/L (14-36); Blood Urea Nitrogen 12 mg/dl (7-17); Carbon Dioxide 23 mmol/L (22.0-30.0); Estimated Glomerular Filt Rate 50 ml/min (>60); GFR (African American) 60 ML/MIN (>60); Globulin 3.5 g/dL (1.3-3.2); Total Protein,Serum 6.3 g/dl (6.3-8.2)
[2020-12-06 19:13] LABS: Bilirubin,Total 0.1 mg/dl (0.2-1.3); Calcium 10.1 mg/dl (8.4-10.2); Glucose 134 mg/dl (74-100)
[2020-12-06 19:22] LABS: C-Reactive Protein 71.1 mg/L (0-4)
[2020-12-06 20:22] LABS: Erythrocyte Sedimentation Rate 71 mm/hr (0-30)
== END ==
PROVIDERS: Visit Provider Family Medicine
DX: M25.561 Pain in right knee (principal); L03.90 Cellulitis, unspecified
CPT/HCPCS: 36415; 73562; 80053; 85025; 85651; 86140

== ENCOUNTER 2020-12-12 16:09 | Outpatient (CLI) | payer BC, MEDICARE, SELFPAY ==
[2020-12-12 16:18] VITALS: BMI 22.1
[2020-12-12 16:35] LABS: Microscopic, Urine URINE MICROSCOPIC (MICROSCOPIC)
[2020-12-12 16:37] LABS: Appearance,Urine CLEAR (Clear); Bilirubin,Urine Negative (Negative); Blood, Urine Negative (Negative); Color,Urine YELLOW (Yellow); Glucose,Urine (UA) Negative (Negative); Ketones,Urine Negative (Negative); Leukocyte Esterase,Urine 1+ (Negative); Nitrate,Urine Negative (Negative); Protein,Urine Negative (Negative); Specific Gravity, Urine 1.015 (1.005-1.030); Urobilinogen,Urine 0.2 EU/dl (0.2)
[2020-12-12 16:56] LABS: Bacteria,Urine 2+ /lpf; RBC,Urine Occasional #/hpf (0-3); Squamous Epithelial Cell,Urine Occasional #/hpf (0-5)
== END 2020-12-12 16:40 | disposition home or self-care (01) ==
PROVIDERS: PCP Family Medicine; Visit Provider Family Medicine
DX: R33.8 Other retention of urine (principal)
CPT/HCPCS: 81001; 87086; 87088; 87186; G0463

== ENCOUNTER 2020-12-13 16:26 | Inpatient (IN) | payer BC, MEDICARE, SELFPAY ==
--- NOTE | 2020-12-13 15:10 | PC.NURSE ---
DIRECT ADMISSION FROM DR. SHEPARD, APPROVED PER Zion ELLIS RN. ROOM 203. ALL STAFF NOTIFIED
[2020-12-13 16:46] VITALS: BMI 20.9
[2020-12-13 17:55] VITALS: RESP 20; TEMP 36.8; O2SAT 92
[2020-12-13 18:02] LABS: Chloride 93 mmol/L (98-107); Potassium 4.4 mmoL/L (3.5-5.1); Sodium 120 mmol/L (136-145)
[2020-12-13 18:04] LABS: Alanine Aminotransferase 7 U/L (12-78); Aspartate Amino Transferase 32 U/L (14-36); Blood Urea Nitrogen 12 mg/dl (7-17); Creatinine Clearance Estimated 37 mL/min (50-200); Estimated Glomerular Filt Rate 38 ml/min (>60); GFR (African American) 46 ML/MIN (>60)
[2020-12-13 18:05] LABS: Albumin Level 2.7 g/dl (3.5-5.0); Albumin/Globulin Ratio 0.8 (1.1-1.8); Alkaline Phosphatase 148 U/L (38-126); Anion Gap 12.4 mEq/L (5-15); Calcium 9.5 mg/dl (8.4-10.2); Carbon Dioxide 19 mmol/L (22.0-30.0); Globulin 3.3 g/dL (1.3-3.2); Glucose 104 mg/dl (74-100)
[2020-12-13 18:06] LABS: Lactic Acid 0.8 mmol/L (0.7-2.1)
[2020-12-13 18:10] LABS: Bilirubin,Total 0.1 mg/dl (0.2-1.3); C-Reactive Protein 31.4 mg/L (0-4)
[2020-12-13 18:34] LABS: Basophils % 0.6 % (0.1-2.0); Eosinophils # 0.2 K/mm3 (0.0-0.4); Eosinophils % 2.6 % (0.1-12.0); Hematocrit 30.3 % (37.0-47.0); Hemoglobin 9.6 g/dL (12.2-16.2); Lymphocytes # 1.3 K/mm3 (0.7-4.5); Lymphocytes % 17.4 % (10-50); Mean Corpuscular HGB Conc 31.7 g/dL (31.8-35.4); Mean Corpuscular Hemoglobin 28.2 pg (27.0-31.2); Mean Corpuscular Volume 89.1 fl (81-99); Mean Platelet Volume 9.1 fl (7.4-10.4); Monocytes # 0.5 K/mm3 (0.1-1.0); Monocytes % 6.7 % (1.7-9.3); Neutrophils # 5.4 K/mm3 (1.8-7.8); Neutrophils % 72.8 % (37.0-80.0); Platelet Count 412 K/mm3 (142-424); Red Cell Distribution Width 13.6 % (11.5-17.5); White Blood Count 7.4 K/mm3 (4.8-10.8)
[2020-12-13 18:53] VITALS: BP 118/62; PULSE 58
[2020-12-13 19:04] LABS: Coronavirus 19, PCR Not Detected (NotDetected); Influenza A, PCR Not Detected (NotDetected); Influenza B, PCR Not Detected (NotDetected)
[2020-12-13 19:05] LABS: Erythrocyte Sedimentation Rate 35 mm/hr (0-30)
[2020-12-13 20:00] VITALS: BP 106/63; PULSE 52; RESP 14; TEMP 36.7; O2SAT 97
--- NOTE | 2020-12-13 21:13 | HMH.HP ---
*Admission Date: 12/13/20 *Chief complaint: MRSA abscess *History of present illness: Verónica is a six 5-year-[age] white female who was seen in the office about a week ago complaining of an area of pain and redness over her right anterior knee that extended to her proximal thigh.. When examined in the office, she was noted to have a 2 x 5 cm area of fluctuant erythema over the right anterior knee. The area was aspirated and returned a cloudy serosanguineous fluid that was sent for culture. She was empirically started on Bactrim and ultimately the culture returned growing MRSA. She returned to the office yesterday for an unrelated issue and it was noted that the wound over the right knee continued to drain copious amounts of cloudy fluid. Because of failure to improve with oral antibiotics, she is now being admitted for treatment with IV vancomycin and for surgical consultation for possible I&D. 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 About 10 months ago she underwent arthrodesis of the right knee after removal of all of her hardware. [facility] History Medical History: Reports:: Cancer (cervical), Gastroesophageal Reflux Disease(GERD), Heart Murmur, Hyperlipidemia, Hypertension, Migraine, MRSA, Renal Insufficiency Denies:: Diabetes Mellitus Type 1, Diabetes Mellitus Type 2, Internal Pacemaker, Seizures *Have you ever received a pneumonia vaccine?: Yes *Have you received a flu vaccine this season?: Yes Other Medical History: Reports: Anemia, Arthritis. Denies: Blood Transfusion Reaction Laterality Cases: Right: Breast Biopsy, Bilateral: Arthroscopy Knee, Total Knee Replacement, Other (Plantar fascia release) Other Surgeries: Yes: Colonoscopy, Hysterectomy-Total, Other (Bilateral lower tendon repair, arthrodesis right knee). No: Pacemaker Amputation: No Fractures: No - *Social History Smoking Status: Never smoker Alcohol Intake: current Alcohol Intake Frequency:: holidays/special occasions only Substance Use Type: denies use *Occupational Status:: disabled Housing: house Household Members: spouse *Travel in the last 8 weeks: None Family Hx:: Cancer, Heart Attack, Hyperlipidemia, Hypertension Review of Systems - Constitutional Reports lack of energy, Reports weakness - Eyes Reports requires corrective lenses, Denies change in vision - ENT Reports poor balance, Reports nasal congestion, Denies hearing loss - *Cardiovascular Denies chest pain, Denies shortness of breath, Denies irregular heart rhythm - *Respiratory Denies chest congestion, Denies cough - *Gastrointestinal Reports abdominal pain, Reports heartburn, Reports vomiting blood, Denies change in bowel habits, Denies black, tarry stools - *Genitourinary Reports difficulty urinating (Currently has Bazan for acute urinary retention), Denies blood in urine - *Musculoskeletal Reports abnormal walking, Reports joint pain, Reports decreased muscle mass, Reports back pain - Integumentary/Breasts Reports other (See HPI), Denies hair loss, Denies change in skin color - *Neurologic Denies confusion, Denies memory loss, Denies seizure-like activity, Denies tremor(s) - Psychiatric Reports lack of enjoyment - Endocrine Reports rapid, pounding, or irregular heartbeat, Denies excessive sweating - Hematologic/Lymphatic Denies easy bruising - Allergic/Immunologic Reports GI upset with certain foods Meds Home Medications Medication Instructions Recorded Confirmed Type Metoclopramide HCl [Metoclopramide 10 mg PO BID 03/06/18 12/13/20 History 10mg Tablet] Topiramate 50 mg PO BID 03/06/18 12/13/20 History Atorvastatin Calcium [Lipitor 20mg 20 mg PO HS 11/02/18 12/13/20 History Tab] Pantoprazole Sodium [Protonix 40mg 40 mg PO DAILY 11/02/18 12/13/20 History tablet] polyethylene glycoL 3350 [Miralax 17 gm PO DAILYP PRN 11/02/18 12/13/20 History 17gm Packet] Potassium
[2020-12-14 04:00] VITALS: BP 100/60; PULSE 52; RESP 12; TEMP 36.6; O2SAT 98
--- NOTE | 2020-12-14 04:20 | PC.NURSE ---
Patient is A&Ox4. Patient has had no acute changes this shift. VSS, call light within reach, will continue to monitor.
[2020-12-14 05:04] VITALS: BMI 21.0
[2020-12-14 08:00] VITALS: BP 96/57; PULSE 69; RESP 16; TEMP 36.7; O2SAT 98
--- NOTE | 2020-12-14 08:51 | HMH.ACPN2 ---
Internal Medicine - PN: Salvador *Date: 12/14/20 *Time: 08:51 Interval history: She had some nausea overnight relieved with Phenergan, otherwise no complaints. Exam Vital signs and Labs for Last 24 Hours: Temp Pulse Resp BP Pulse Ox 98.0 F 69 16 96/57 L 98 12/14/20 08:00 12/14/20 08:00 12/14/20 08:00 12/14/20 08:00 12/14/20 08:00 Laboratory Results - last 24 hr 12/13/20 17:41: WBC 7.4, RBC 3.40 L, Hgb 9.6 L, Hct 30.3 L, MCV 89.1, MCH 28.2, MCHC 31.7 L, RDW 13.6, Plt Count 412, MPV 9.1, Neut % (Auto) 72.8, Lymph % (Auto) 17.4, [place] % (Auto) 6.7, Eos % (Auto) 2.6, Baso % (Auto) 0.6, Neut # (Auto) 5.4, Lymph # (Auto) 1.3, [place] # (Auto) 0.5, Eos # (Auto) 0.2, Baso # (Auto) 0.0 12/13/20 17:41: Sodium 120 L, Potassium 4.4, Chloride 93 L, Carbon Dioxide 19 L, Anion Gap 12.4, BUN 12, Creatinine 1.40 H, Estimated Creat Clear 37, Estimated GFR 38 L, Est GFR ( Amer) 46 L, Glucose 104 H, Calcium 9.5, Total Bilirubin 0.1 L, AST 32, ALT 7 L, Alkaline Phosphatase 148 H, C-Reactive Protein 31.4 H, Total Protein 6.0 L, Albumin 2.7 L, Globulin 3.3 H, Albumin/Globulin Ratio 0.8 L 12/13/20 17:41: Lactate 0.8 12/13/20 17:41: ESR 35 H 12/13/20 18:38: SARS-CoV-2 (PCR) Not detected, Influenza A Untype (PCR) Not detected, Influenza Type B (PCR) Not detected I & O for Last 24 hours: Intake & Output 12/11/20 12/12/20 12/13/20 12/14/20 11:59 11:59 11:59 11:59 Intake Total 1539 / 1539 Output Total 1200 / 1200 Balance 339 / 339 Weight 131 lb 3 oz Narrative: Lungs are clear. Heart is regular. Bazan draining clear urine. The wound over the right knee appears less indurated. He still has significant drainage. Assessment and Plan (1) Abscess of skin Status: Acute Category: Medical Code(s): L02.91 - Cutaneous abscess, unspecified (2) MRSA infection Status: Acute Category: Medical Code(s): A49.02 - Methicillin resistant Staphylococcus aureus infection, unspecified site (3) Acute urinary retention Status: Acute Category: Medical Code(s): R33.8 - Other retention of urine (4) Mobility impaired Status: Acute Category: Medical Code(s): Z74.09 - Other reduced mobility (5) Chronic renal failure, stage 3 (moderate) Status: Chronic Category: Medical Code(s): N18.3 - Chronic kidney disease, stage 3 (moderate) (6) Hypertension Status: Chronic Category: Medical Code(s): I10 - Essential (primary) hypertension - Assessment and plan all Dx Assessment and Plan for all problems:: Continue IV vancomycin per pharmacy dosing. Consult surgery for opinion regarding I&D.
--- NOTE | 2020-12-14 09:53 | HMH.GSCON ---
*Admission Date: 12/13/20 *Reason for consult:: Abscess *History of present illness: This is a 65-year-old female seen in consultation from Dr. Kendall for possible incision and drainage of right lower extremity abscess. Please see HPI from admission H&P forwarded below. Forwarded from admission H&P: Verónica is a six 5-year[age] white female who was seen in the office about a week ago complaining of an area of pain and redness over her right anterior knee that extended to her proximal thigh.. When examined in the office, she was noted to have a 2 x 5 cm area of fluctuant erythema over the right anterior knee. The area was aspirated and returned a cloudy serosanguineous fluid that was sent for culture. She was empirically started on Bactrim and ultimately the culture returned growing MRSA. She returned to the office yesterday for an unrelated issue and it was noted that the wound over the right knee continued to drain copious amounts of cloudy fluid. Because of failure to improve with oral antibiotics, she is now being admitted for treatment with IV vancomycin and for surgical consultation for possible I&D. 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 About 10 months ago she underwent arthrodesis of the right knee after removal of all of her hardware. Review of Systems - Constitutional Denies chills - *Respiratory Denies cough - *Musculoskeletal Reports joint swelling - Integumentary/Breasts Reports boil - *Neurologic Reports abnormal walking, Reports unsteadiness, Reports weakness, Denies confusion, Denies memory loss, Denies seizure-like activity, Denies tremor(s) [facility] History Medical History: Reports:: Cancer (cervical), Gastroesophageal Reflux Disease(GERD), Heart Murmur, Hyperlipidemia, Hypertension, Migraine, MRSA, Renal Insufficiency Denies:: Diabetes Mellitus Type 1, Diabetes Mellitus Type 2, Internal Pacemaker, Seizures *Have you ever received a pneumonia vaccine?: Yes *Have you received a flu vaccine this season?: Yes Other Medical History: Reports: Anemia, Arthritis. Denies: Blood Transfusion Reaction Laterality Cases: Right: Breast Biopsy, Bilateral: Arthroscopy Knee, Total Knee Replacement, Other (Plantar fascia release) Other Surgeries: Yes: Colonoscopy, Hysterectomy-Total, Other (Bilateral lower tendon repair, arthrodesis right knee). No: Pacemaker Amputation: No Fractures: No - *Social History Smoking Status: Never smoker Alcohol Intake: current Alcohol Intake Frequency:: holidays/special occasions only Substance Use Type: denies use *Occupational Status:: disabled Housing: house Household Members: spouse *Travel in the last 8 weeks: None Family Hx:: Cancer, Heart Attack, Hyperlipidemia, Hypertension Meds Home Medications Medication Instructions Recorded Confirmed Type Metoclopramide HCl [Metoclopramide 10 mg PO BID 03/06/18 12/13/20 History 10mg Tablet] Topiramate 50 mg PO BID 03/06/18 12/13/20 History Atorvastatin Calcium [Lipitor 20mg 20 mg PO HS 11/02/18 12/13/20 History Tab] Pantoprazole Sodium [Protonix 40mg 40 mg PO DAILY 11/02/18 12/13/20 History tablet] polyethylene glycoL 3350 [Miralax 17 gm PO DAILYP PRN 11/02/18 12/13/20 History 17gm Packet] Potassium Chloride [Pot Chlor 20 20 meq PO DAILY 11/29/19 12/13/20 History mEq Packet] Midodrine HCl 10 mg PO BID 06/27/20 12/13/20 History Morphine Sulfate [MS Contin 15mg 15 mg PO BIDP PRN 06/27/20 12/13/20 History EXTENDED RELEASE tablet] Oxybutynin Chloride [Oxybutynin 5 mg PO BID 06/27/20 12/13/20 History Chloride ER] Tramadol HCl [Tramadol 50mg 50 mg PO TIDP PRN 06/27/20 12/13/20 History Tab] Trazodone HCl 50 mg PO HS 06/27/20 12/13/20 History Metoprolol Succinate [Toprol XL 25 mg PO DAILY 06/28/20 12/13/20 History 25mg tablet] Mirtazapine [Remeron 15mg tablet] 15 mg PO HS 12/13/20 12/13/20 History Sulfamethoxazo
--- NOTE | 2020-12-14 09:57 | HMH.OPNOTE ---
Date of procedure: 12/14/20 Pre-op Diagnosis:: Right lower extremity abscess Post-op Diagnosis:: Same Procedure performed:: Incision and drainage of right lower extremity abscess Surgeon:: Cruzito Alfaro MD Anesthesia: none Estimated blood loss (mL): 1 Operative findings:: Small focal abscess along lower aspect of right leg incision (status post multiple orthopedic interventions with recent hardware removal). Pocket of purulence evacuated. Palpable bone margin Note: If she does not show continued improvement evaluation by her orthopedic surgeon is warranted. Operative note:: After informed consent was obtained the patient was maintained in the supine position. The region around the abscess was prepped in a sterile fashion. A #11 scalpel was utilized to open up the area of fluctuance. Fluid was obtained for Gram stain/culture. The pocket was evacuated of fluid. Palpation did reveal bony margin . Dry gauze was utilized to pack the wound. Dressings were secured. Condition: stable Disposition: no change Specimens:: Fluid for Gram stain/culture Complications:: No immediate
--- NOTE | 2020-12-14 10:10 | HMH.PHACONS ---
- Pharmacy Consult Date: 12/14/20 Time: 10:10 Referring provider: DEVYN Reason for Consult:: VANCOMYCIN DOSING Allergies and ADEs:: Allergies Allergy/AdvReac Type Severity Reaction Status Date / Time amoxicillin [From Augmentin] Allergy Severe Rash Verified 12/20/19 13:37 clavulanic acid Allergy Severe Rash Verified 12/20/19 13:37 [From Augmentin] clarithromycin [From BIAXIN] Allergy Unknown Verified 12/20/19 13:37 Home Medications:: Home Medications Medication Instructions Recorded Confirmed Type Metoclopramide HCl [Metoclopramide 10 mg PO BID 03/06/18 12/13/20 History 10mg Tablet] Topiramate 50 mg PO BID 03/06/18 12/13/20 History Atorvastatin Calcium [Lipitor 20mg 20 mg PO HS 11/02/18 12/13/20 History Tab] Pantoprazole Sodium [Protonix 40mg 40 mg PO DAILY 11/02/18 12/13/20 History tablet] polyethylene glycoL 3350 [Miralax 17 gm PO DAILYP PRN 11/02/18 12/13/20 History 17gm Packet] Potassium Chloride [Pot Chlor 20 20 meq PO DAILY 11/29/19 12/13/20 History mEq Packet] Midodrine HCl 10 mg PO BID 06/27/20 12/13/20 History Morphine Sulfate [MS Contin 15mg 15 mg PO BIDP PRN 06/27/20 12/13/20 History EXTENDED RELEASE tablet] Oxybutynin Chloride [Oxybutynin 5 mg PO BID 06/27/20 12/13/20 History Chloride ER] Tramadol HCl [Tramadol 50mg 50 mg PO TIDP PRN 06/27/20 12/13/20 History Tab] Trazodone HCl 50 mg PO HS 06/27/20 12/13/20 History Metoprolol Succinate [Toprol XL 25 mg PO DAILY 06/28/20 12/13/20 History 25mg tablet] Mirtazapine [Remeron 15mg tablet] 15 mg PO HS 12/13/20 12/13/20 History Sulfamethoxazole/Trimethoprim 1 each PO BID 12/13/20 12/13/20 History [Bactrim DS tablet] Height: 1.68 m Weight: 59.506 kg Laboratory Results:: Laboratory Results - last 24 hr 12/13/20 17:41: WBC 7.4, RBC 3.40 L, Hgb 9.6 L, Hct 30.3 L, MCV 89.1, MCH 28.2, MCHC 31.7 L, RDW 13.6, Plt Count 412, MPV 9.1, Neut % (Auto) 72.8, Lymph % (Auto) 17.4, [place] % (Auto) 6.7, Eos % (Auto) 2.6, Baso % (Auto) 0.6, Neut # (Auto) 5.4, Lymph # (Auto) 1.3, [place] # (Auto) 0.5, Eos # (Auto) 0.2, Baso # (Auto) 0.0 12/13/20 17:41: Sodium 120 L, Potassium 4.4, Chloride 93 L, Carbon Dioxide 19 L, Anion Gap 12.4, BUN 12, Creatinine 1.40 H, Estimated Creat Clear 37, Estimated GFR 38 L, Est GFR ( Amer) 46 L, Glucose 104 H, Calcium 9.5, Total Bilirubin 0.1 L, AST 32, ALT 7 L, Alkaline Phosphatase 148 H, C-Reactive Protein 31.4 H, Total Protein 6.0 L, Albumin 2.7 L, Globulin 3.3 H, Albumin/Globulin Ratio 0.8 L 12/13/20 17:41: Lactate 0.8 12/13/20 17:41: ESR 35 H 12/13/20 18:38: SARS-CoV-2 (PCR) Not detected, Influenza A Untype (PCR) Not detected, Influenza Type B (PCR) Not detected Medical History: Reports:: Cancer (cervical), Gastroesophageal Reflux Disease(GERD), Heart Murmur, Hyperlipidemia, Hypertension, Migraine, MRSA, Renal Insufficiency Denies:: Diabetes Mellitus Type 1, Diabetes Mellitus Type 2, Internal Pacemaker, Seizures Assessment and Plan (1) Abscess of skin Status: Acute Category: Medical Code(s): L02.91 - Cutaneous abscess, unspecified (2) MRSA infection Status: Acute Category: Medical Code(s): A49.02 - Methicillin resistant Staphylococcus aureus infection, unspecified site (3) Acute urinary retention Status: Acute Category: Medical Code(s): R33.8 - Other retention of urine (4) Mobility impaired Status: Acute Category: Medical Code(s): Z74.09 - Other reduced mobility (5) Chronic renal failure, stage 3 (moderate) Status: Chronic Category: Medical Code(s): N18.3 - Chronic kidney disease, stage 3 (moderate) (6) Hypertension Status: Chronic Category: Medical Code(s): I10 - Essential (primary) hypertension - Assessment and plan all Dx Assessment and Plan for all problems:: Pharmacokinetic dosing service Objective: Age: 65 yo Serum creatinine: 1.4 mg/dL Height: 66.1 Inches Weight (k
[2020-12-14 10:32] LABS: Chloride 93 mmol/L (98-107); Sodium 122 mmol/L (136-145)
[2020-12-14 10:33] LABS: Potassium 3.7 mmoL/L (3.5-5.1)
[2020-12-14 10:35] LABS: Alanine Aminotransferase 6 U/L (12-78); Albumin Level 2.6 g/dl (3.5-5.0); Albumin/Globulin Ratio 0.8 (1.1-1.8); Alkaline Phosphatase 133 U/L (38-126); Anion Gap 10.7 mEq/L (5-15); Aspartate Amino Transferase 19 U/L (14-36); Blood Urea Nitrogen 9 mg/dl (7-17); Carbon Dioxide 22 mmol/L (22.0-30.0); Creatinine Clearance Estimated 35 mL/min (50-200); Estimated Glomerular Filt Rate 35 ml/min (>60); GFR (African American) 42 ML/MIN (>60); Globulin 3.2 g/dL (1.3-3.2); Glucose 93 mg/dl (74-100); Total Protein,Serum 5.8 g/dl (6.3-8.2)
[2020-12-14 10:36] LABS: Bilirubin,Total < 0.1 mg/dl (0.2-1.3)
[2020-12-14 12:00] VITALS: BP 141/65; PULSE 77; RESP 16; TEMP 36.6; O2SAT 97
--- NOTE | 2020-12-14 13:56 | P.CONPHA_ITS ---
[facility] Pharmacy VTE Monitoring - Patient Demographics Allergies/Adverse Reactions: Patient Allergies amoxicillin [From Augmentin] Allergy (Severe, Verified 12/20/19 13:37) Rash clavulanic acid [From Augmentin] Allergy (Severe, Verified 12/20/19 13:37) Rash clarithromycin [From BIAXIN] Allergy (Unknown, Verified 12/20/19 13:37) Height: 1.68 m Weight: 59.506 kg Patient Problems: Current Active Problems Hypertension (Chronic) Mobility impaired (Acute) Chronic renal failure, stage 3 (moderate) (Chronic) Abscess of skin (Acute) MRSA infection (Acute) Acute urinary retention (Acute) - VTE Risk Labs: VTE Related Lab Results Hgb 9.6 g/dL (12.2-16.2) L 12/13/20 17:41 Hct 30.3 % (37.0-47.0) L 12/13/20 17:41 Plt Count 412 K/mm3 (142-424) 12/13/20 17:41 BUN 9 mg/dl (7-17) 12/14/20 09:55 Creatinine 1.50 mg/dl (0.52-1.04) H 12/14/20 09:55 Estimated Creat Clear 35 mL/min (50-200) 12/14/20 09:55 Was VTE Risk Assessment Performed: No Clinical Trial Participant: No - Prophylaxis VTE Prophylaxis Ordered?: Yes Types of VTE Prophylaxis: TEDS Knee High Location of Applied Device: Bilateral Lower Extremeties
[2020-12-14 16:00] VITALS: BP 92/54; PULSE 70; RESP 18; TEMP 36.7; O2SAT 97
[2020-12-14 20:00] VITALS: BP 101/69; PULSE 63; RESP 17; TEMP 36.8; O2SAT 97
--- NOTE | 2020-12-14 20:04 | PC.NURSE ---
I & D sone to R leg this shift per Dr. Alfaro. Dsg applied and is cdi. Wound cx sent as well.
[2020-12-15 04:00] VITALS: BP 117/69; PULSE 72; RESP 16; TEMP 36.6; O2SAT 97
--- NOTE | 2020-12-15 06:22 | PC.NURSE ---
Patient is A&O x4. Dressing to the right knee is CDI. Bazan catheter is draining urine. No acute changes have been noted this shift. VSS, call light within reach, will continue to monitor.
[2020-12-15 07:26] LABS: Alanine Aminotransferase 5 U/L (12-78); Albumin Level 2.3 g/dl (3.5-5.0); Albumin/Globulin Ratio 0.7 (1.1-1.8); Alkaline Phosphatase 118 U/L (38-126); Anion Gap 9.7 mEq/L (5-15); Aspartate Amino Transferase 18 U/L (14-36); Blood Urea Nitrogen 8 mg/dl (7-17); Calcium 8.5 mg/dl (8.4-10.2); Carbon Dioxide 20 mmol/L (22.0-30.0); Chloride 95 mmol/L (98-107); Creatinine Clearance Estimated 43 mL/min (50-200); Estimated Glomerular Filt Rate 45 ml/min (>60); GFR (African American) 54 ML/MIN (>60); Globulin 3.1 g/dL (1.3-3.2); Glucose 89 mg/dl (74-100); Potassium 3.7 mmoL/L (3.5-5.1); Sodium 121 mmol/L (136-145); Total Protein,Serum 5.4 g/dl (6.3-8.2)
--- NOTE | 2020-12-15 07:39 | P.PN_ITS ---
Subjective Narrative: She states that she is doing fine. She has yet to undergo her first dressing change. Progress Note: A&P (1) Abscess of skin Status: Acute Assessment and plan: Overall, doing well status post incision and drainage of focal abscess. Continue dressing changes May ultimately require orthopedic evaluation (she states that she prefers to see her orthopedic surgeon in [facility]) (2) MRSA infection Status: Acute (3) Acute urinary retention Status: Acute (4) Mobility impaired Status: Acute (5) Chronic renal failure, stage 3 (moderate) Status: Chronic (6) Hypertension Status: Chronic Exam Vital signs and Labs for Last 24 Hours: Temp Pulse Resp BP Pulse Ox 97.9 F 72 16 117/69 97 12/15/20 04:00 12/15/20 04:00 12/15/20 04:00 12/15/20 04:00 12/15/20 04:00 Laboratory Results - last 24 hr 12/14/20 09:55: Sodium 122 L, Potassium 3.7, Chloride 93 L, Carbon Dioxide 22, Anion Gap 10.7, BUN 9, Creatinine 1.50 H, Estimated Creat Clear 35, Estimated GFR 35 L, Est GFR ( Amer) 42 L, Glucose 93, Calcium 9.0, Total Bilirubin < 0.1 L, AST 19 D, ALT 6 L, Alkaline Phosphatase 133 H, Total Protein 5.8 L, Albumin 2.6 L, Globulin 3.2, Albumin/Globulin Ratio 0.8 L I & O for Last 24 hours: Intake & Output 12/12/20 12/13/20 12/14/20 12/15/20 11:59 11:59 11:59 11:59 Intake Total 1539 / 1539 1865 / 1865 Output Total 1200 / 1200 1600 / 1600 Balance 339 / 339 265 / 265 Weight 131 lb 3 oz Microbiology Reports for the Last 24 Hours: Microbiology 12/13/20 09:51 Knee,Right - Abscess Gram Stain - Final 12/13/20 09:51 Knee,Right - Abscess Wound Culture - Preliminary - Constitutional no acute distress - *Routine Respiratory Exam Absent: respiratory distress - *Routine Cardiovascular Exam Absent: tachycardia - *Routine Extremities Exam Comments: Dressing in place. No spreading cellulitis.
[2020-12-15 07:42] LABS: Bilirubin,Total 0.1 mg/dl (0.2-1.3)
[2020-12-15 08:00] VITALS: BP 110/67; PULSE 67; RESP 16; TEMP 36.7; O2SAT 99
--- NOTE | 2020-12-15 08:56 | HMH.ACPN2 ---
Internal Medicine - PN: Subj *Date: 12/15/20 *Time: 08:57 Interval history: She complains of a mild headache and occasional nausea otherwise no new complaints. Surgical consult noted. Dr. Alfaro performed I&D at the bedside. Exam Vital signs and Labs for Last 24 Hours: Temp Pulse Resp BP Pulse Ox 97.9 F 72 16 117/69 97 12/15/20 04:00 12/15/20 04:00 12/15/20 04:00 12/15/20 04:00 12/15/20 04:00 Laboratory Results - last 24 hr 12/14/20 09:55: Sodium 122 L, Potassium 3.7, Chloride 93 L, Carbon Dioxide 22, Anion Gap 10.7, BUN 9, Creatinine 1.50 H, Estimated Creat Clear 35, Estimated GFR 35 L, Est GFR ( Amer) 42 L, Glucose 93, Calcium 9.0, Total Bilirubin < 0.1 L, AST 19 D, ALT 6 L, Alkaline Phosphatase 133 H, Total Protein 5.8 L, Albumin 2.6 L, Globulin 3.2, Albumin/Globulin Ratio 0.8 L 12/15/20 06:40: Sodium 121 L, Potassium 3.7, Chloride 95 L, Carbon Dioxide 20 L, Anion Gap 9.7, BUN 8, Creatinine 1.20 H, Estimated Creat Clear 43, Estimated GFR 45 L, Est GFR ( Amer) 54 L D, Glucose 89, Calcium 8.5, Total Bilirubin 0.1 L, AST 18, ALT 5 L, Alkaline Phosphatase 118, Total Protein 5.4 L, Albumin 2.3 L D, Globulin 3.1, Albumin/Globulin Ratio 0.7 L I & O for Last 24 hours: Intake & Output 12/12/20 12/13/20 12/14/20 12/15/20 11:59 11:59 11:59 11:59 Intake Total 1539 / 1539 1865 / 1865 Output Total 1200 / 1200 1600 / 1600 Balance 339 / 339 265 / 265 Weight 131 lb 3 oz Microbiology Reports for the Last 24 Hours: Microbiology 12/13/20 09:51 Knee,Right - Abscess Gram Stain - Final 12/13/20 09:51 Knee,Right - Abscess Wound Culture - Preliminary Narrative: Appears in no distress. Lungs clear anteriorly. Heart is regular. Right lower extremity with dressing in place which is clean and dry. Palpation of the distal thigh shows less tenderness. Assessment and Plan (1) Abscess of skin Status: Acute Category: Medical Code(s): L02.91 - Cutaneous abscess, unspecified (2) MRSA infection Status: Acute Category: Medical Code(s): A49.02 - Methicillin resistant Staphylococcus aureus infection, unspecified site (3) Acute urinary retention Status: Acute Category: Medical Code(s): R33.8 - Other retention of urine (4) Mobility impaired Status: Acute Category: Medical Code(s): Z74.09 - Other reduced mobility (5) Chronic renal failure, stage 3 (moderate) Status: Chronic Category: Medical Code(s): N18.3 - Chronic kidney disease, stage 3 (moderate) (6) Hypertension Status: Chronic Category: Medical Code(s): I10 - Essential (primary) hypertension - Assessment and plan all Dx Assessment and Plan for all problems:: Continue IV vancomycin. She will need a PICC line for long-term antibiotics. We will plan to remove her Bazan tomorrow to see if she can void on her own.
[2020-12-15 16:00] VITALS: BP 109/69; PULSE 75; RESP 16; TEMP 36.6; O2SAT 96
--- NOTE | 2020-12-15 19:54 | PC.NURSE ---
Dressing change performed this shift. Serosang drainage noted. Pt premedicated w/ PRN pain meds as well.
[2020-12-15 20:00] VITALS: BP 108/72; PULSE 79; RESP 17; TEMP 36.7; O2SAT 97
[2020-12-16 04:00] VITALS: BP 117/76; PULSE 69; RESP 18; TEMP 36.6; O2SAT 99
[2020-12-16 04:50] VITALS: BMI 21.2
--- NOTE | 2020-12-16 06:37 | PC.NURSE ---
Patient is alert and oriented x4. Patient has complained of pain and nausea this shift. Right knee dressing is clean, dry and intact. VSS, call light within reach, will continue to monitor.
--- NOTE | 2020-12-16 07:57 | HMH.ACPN2 ---
<Dahlia Leigh - Last Filed: 12/16/20 07:57> Internal Medicine - PN: Subj *Date: 12/16/20 *Time: 07:57 Interval history: Patient is not feeling very well this morning. She states she has had a headache since yesterday. Tylenol and other pain medicines have eased it but is not gone away. He is up so been nauseated. She does not feel like eating breakfast. She did not sleep well during the night. Patient states she is constipated and bowels have not moved since admission. She has problems at home and usually manually remove stool. Dressing change per nursing yesterday. Patient still has Bazan catheter. Exam Vital signs and Labs for Last 24 Hours: Temp Pulse Resp BP Pulse Ox 98 F 69 18 117/76 99 12/16/20 04:00 12/16/20 04:00 12/16/20 04:00 12/16/20 04:00 12/16/20 04:00 I & O for Last 24 hours: Intake & Output 12/13/20 12/14/20 12/15/20 12/16/20 11:59 11:59 11:59 11:59 Intake Total 1539 / 1539 1984 / 1984 1480 / 1480 Output Total 1200 / 1200 1600 / 1600 1600 / 1600 Balance 339 / 339 385 / 385 -120 / -120 Weight 131 lb 3 oz 132 lb 1 oz Microbiology Reports for the Last 24 Hours: Microbiology 12/13/20 09:51 Knee,Right - Abscess Gram Stain - Final 12/13/20 09:51 Knee,Right - Abscess Wound Culture - Preliminary - Constitutional no acute distress - *Routine Respiratory Exam Present: CTA bilaterally (Anteriorly and posteriorly) - *Routine Cardiovascular Exam Present: RRR - *Routine Abdominal Exam Present: soft, normoactive bowel sounds. Absent: tenderness - *Routine Exam Comments: Bazan catheter to bedside drainage - *Routine Extremities Exam Absent: calf tenderness Comments: Knees elevated on pillow. Dressing on right knee is clean and dry. - *Routine Neurological Exam Present: alert, oriented X3 Assessment and Plan (1) Abscess of skin Status: Acute Category: Medical Code(s): L02.91 - Cutaneous abscess, unspecified (2) MRSA infection Status: Acute Category: Medical Code(s): A49.02 - Methicillin resistant Staphylococcus aureus infection, unspecified site (3) Acute urinary retention Status: Acute Category: Medical Code(s): R33.8 - Other retention of urine (4) Mobility impaired Status: Acute Category: Medical Code(s): Z74.09 - Other reduced mobility (5) Chronic renal failure, stage 3 (moderate) Status: Chronic Category: Medical Code(s): N18.3 - Chronic kidney disease, stage 3 (moderate) (6) Hypertension Status: Chronic Category: Medical Code(s): I10 - Essential (primary) hypertension (7) Constipation Status: Acute Category: Medical Code(s): K59.00 - Constipation, unspecified - Assessment and plan all Dx Assessment and Plan for all problems:: We will try Imitrex for headache. Will start on MiraLAX daily. Patient is to have PICC line placed today. Trial voiding. Will remove Bazan catheter. <Juan José Kendall - Last Filed: 12/16/20 17:14> Internal Medicine - PN: Subj *Date: 12/16/20 *Time: 17:11 Exam Vital signs and Labs for Last 24 Hours: Temp Pulse Resp BP Pulse Ox 98.2 F 71 15 123/74 97 12/16/20 16:00 12/16/20 16:00 12/16/20 16:00 12/16/20 16:00 12/16/20 16:00 Laboratory Results - last 24 hr 12/16/20 15:55: Vancomycin Trough 15.1 H I & O for Last 24 hours: Intake & Output 12/14/20 12/15/20 12/16/20 12/17/20 11:59 11:59 11:59 11:59 Intake Total 1539 / 1539 1984 1600 / 1600 120 / 120 Output Total 1200 / 1200 1600 / 1600 1999 Balance 339 / 339 385 / 385 -400 / -400 120 / 120 Weight 131 lb 3 oz 132 lb 1 oz 132 lb 4.438 oz Microbiology Reports for the Last 24 Hours: Microbiology 12/13/20 09:51 Knee,Right - Abscess Gram Stain - Final 12/13/20 09:51 Knee,Right - Abscess Wound Culture - Preliminary Assessment and Plan (1) Abscess of skin Status: Acute Category: Medical Code(s): L02.91 - Cutaneous a
[2020-12-16 08:00] VITALS: BP 118/71; PULSE 72; RESP 16; TEMP 36.7; O2SAT 98
--- NOTE | 2020-12-16 08:07 | HMH.GSPN ---
Subjective Narrative: Her main complaint this morning is of headache. She states that her dressing changes are going okay . Progress Note: A&P (1) Abscess of skin Status: Acute Assessment and plan: Overall, doing fairly well status post bedside incision and drainage. Continue antibiotics. Outpatient orthopedic evaluation soon after discharge (unless needed more urgently). (2) MRSA infection Status: Acute (3) Acute urinary retention Status: Acute (4) Mobility impaired Status: Acute (5) Chronic renal failure, stage 3 (moderate) Status: Chronic (6) Hypertension Status: Chronic (7) Constipation Status: Acute Exam Vital signs and Labs for Last 24 Hours: Temp Pulse Resp BP Pulse Ox 98 F 69 18 117/76 99 12/16/20 04:00 12/16/20 04:00 12/16/20 04:00 12/16/20 04:00 12/16/20 04:00 I & O for Last 24 hours: Intake & Output 12/13/20 12/14/20 12/15/20 12/16/20 11:59 11:59 11:59 11:59 Intake Total 1539 / 1539 1984 1480 / 1480 Output Total 1200 / 1200 1600 / 1600 1600 / 1600 Balance 339 / 339 385 / 385 -120 / -120 Weight 131 lb 3 oz 132 lb 1 oz Microbiology Reports for the Last 24 Hours: Microbiology 12/13/20 09:51 Knee,Right - Abscess Gram Stain - Final 12/13/20 09:51 Knee,Right - Abscess Wound Culture - Preliminary - Constitutional no acute distress - *Routine Respiratory Exam Absent: respiratory distress - *Routine Cardiovascular Exam Absent: tachycardia - *Routine Extremities Exam Comments: No spreading cellulitis
--- NOTE | 2020-12-16 08:38 | XR_ITS ---
PROCEDURE: XR CHEST PORTABLE PICC PLAC CLINICAL HISTORY: Confirm PICC line placement COMPARISON: DX CXR2V XR chest 2V from 01/25/2018 CR,CT [id number] XR chest portable PICC plac from 08/15/2018 CR XR CHEST PORTABLE from 06/27/[address] CHEST WO/W CON from 06/28/2020 FINDINGS: Right upper extremity PICC line has been inserted. The tip is in good position in the region the SVC. Unremarkable cardiovascular structures with clear lungs. Skin fold artifact noted on the left. IMPRESSION: Right upper extremity PICC line in good position Dictated by: Reg Millan MD 12/16/2020 15:39 Reg Millan MD in [place] 12/16/2020 15:39
--- NOTE | 2020-12-16 09:41 | SW/DCPLANNER ---
Addendum entered by Elda Kruger 12/16/20 15:33: Patient information and order has been faxed to both [facility] and [facility]. I will follow up with both once patient information/order is reviewed. Patients concurs with this discharge plan. Patient stated that he will transport this patient home once stable for discharge. Addendum entered by Elda Kruger 12/16/20 10:07: Patients has called back and stated that patient has discharged home in the past with IV antibiotics and he would prefer her return home at time of discharge. Patient has used [facility] in the past and they prefer to use this home health agency again. stated they have everything they need at home once medically stable for discharge. I will reach out to [facility]/ [facility] to get an OOP for IV Vanc at home. I will also set up with [facility] once medically stable for discharge. Original Note: I have attempted to contact patients regarding discharge plans and the need for IV antibiotics at time of discharge. did not answer at this time VM left.
--- NOTE | 2020-12-16 11:36 | PC.NURSE ---
1130 - Dressing to (R) knee removed. Serosang drainage noted, wound bed is pink. Dressing replaced w/ dry gauze, ABD pad, wrapped in loose kerlex.
--- NOTE | 2020-12-16 12:50 | CT_ITS ---
PROCEDURE INFORMATION: Exam: CT Right Lower Extremity Without and With Contrast, Knee Exam date and time: 12/16/2020 12:50 PM Age: 65 years old Clinical indication: Pain; Knee; Right; Prior surgery; Additional info: R/O osteomyelitis TECHNIQUE: Imaging protocol: CT of the Right lower extremity without and with intravenous contrast was performed. Exam focused on the knee. 3D rendering (Not supervised by radiologist): MIP and/or 3D reconstructed images were created by the technologist. Radiation optimization: All CT scans at this facility use at least one of these dose optimization techniques: automated exposure control; mA and/or kV adjustment per patient size (includes targeted exams where dose is matched to clinical indication); or iterative reconstruction. Contrast material: ISOVUE; Contrast volume: 75 ml; Contrast route: IV; COMPARISON: CR XR KNEE RT 3V 12/06/2020 5:19 PM FINDINGS: Bones/joints: There is resorption of bone along the bone-cement interface at the surgically altered distal femur without corticated margins suspicious for loosening as well as osteo myelitis. Additional lucency along cement bone interface at proximal tibia has corticated margins at most levels suggesting a chronic motion here however there are some areas of bony resorption here is well which may be infection. Soft tissues: Soft tissue ulceration or wound containing gas and fluid extends down to the anterior border of the proximal tibia with gas overlying the the cement here. Abnormal fluid surrounds the fused knee, probably infected, greatest thickness up to 12 mm along anteromedial aspect of the proximal tibia. IMPRESSION: 1. Soft tissue ulceration or wound containing gas and fluid extends down to the anterior border of the proximal tibia with gas overlying the cement here. Abnormal fluid surrounds the fused knee, probably infected, greatest thickness up to 12 mm along anteromedial aspect of the proximal tibia. 2. There is resorption of bone along the bone-cement interface at the surgically altered distal femur without corticated margins suspicious for loosening as well as osteomyelitis. Additional lucency along cement bone interface at proximal tibia has corticated margins at most levels suggesting chronic motion here however there are some areas of bony resorption here as well which may be infection.
[2020-12-16 13:42] VITALS: BMI 21.2
[2020-12-16 16:00] VITALS: BP 123/74; PULSE 71; RESP 15; TEMP 36.8; O2SAT 97
[2020-12-16 16:31] LABS: Vancomycin,Trough 15.1 ug/mL (5.0-10.0)
--- NOTE | 2020-12-16 17:43 | PC.NURSE ---
Pt is to receive IV vanco prior to being DC'd w/ home health this afternoon.
--- NOTE | 2020-12-17 15:03 | HMH.DCSUM ---
General - General Admission date:: 12/13/20 <Juan José Kendall - 02/09/21 13:31> 12/13/20 <Carol Timmons - 12/17/20 15:11> Discharge date: 12/16/20 <IainCarol - 12/17/20 15:11> HPI HPI: Verónica is a 65-year-old white female who was seen in the office about a week ago complaining of an area of pain and redness over her right anterior knee that extended to her proximal thigh. When examined in the office, she was noted to have a 2 x 5 cm area of fluctuant erythema over the right anterior knee. The area was aspirated and returned a cloudy serosanguineous fluid that was sent for culture. She was empirically started on Bactrim and ultimately the culture returned growing MRSA. She returned to the office yesterday for an unrelated issue and it was noted that the wound over the right knee continued to drain copious amounts of cloudy fluid. Because of failure to improve with oral antibiotics, she is now being admitted for treatment with IV vancomycin and for surgical consultation for possible I&D. 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 About 10 months ago she underwent arthrodesis of the right knee after removal of all of her hardware. <Carol Timmons - 12/17/20 15:11> Hospital Course Hospital Course: The patient was admitted and started on IV vancomycin. Surgery was consulted for I&D of her abscess. Dr. Alfaro saw the patient in consultation and took her to the OR on 12/14/2020 for incision and drainage of the right lower extremity abscess. He did feel if she did not show improvement, she would need an orthopedic consult. She had no spreading cellulitis and her dressing was changed. She did complain of a mild headache and occasional nausea but had no other complaints. A PICC line was placed for long-term antibiotics. By 12/16/2020, she was not feeling well. She continued with a headache and nausea. She was also constipated. Imitrex was added for her headache and she was started on MiraLAX. Her Bazan catheter was removed. Dr. Millan, radiology, recommended CT of the knee as best imaging option to look for osteomyelitis, therefore this was ordered. The CT showed soft tissue ulceration or wound containing gas and the fluid extended down to the anterior border of the proximal tibia with gas overlying the cement. Abnormal fluid surrounded the knee up to 12 mm along the anterior medial aspect of the proximal tibia. There was resorption of bone along the bone cement interface at the surgical altered distal femur without corticated margins suspicious for loosening as well as osteomyelitis. There was additional lucency along the cement bone interface at the proximal tibia. The patient preferred to follow-up with her orthopedist in [place]. She was discharged on continued IV vancomycin and will follow up with Dr. Kendall as well. <Carol Timmons - 12/17/20 15:11> Objective Vital signs: Temp Pulse Resp BP Pulse Ox 98.2 F 71 15 123/74 97 12/16/20 16:00 12/16/20 16:00 12/16/20 16:00 12/16/20 16:00 12/16/20 16:00 <Juan José Kendall - 02/09/21 13:31> Temp Pulse Resp BP Pulse Ox 98.2 F 71 15 123/74 97 12/16/20 16:00 12/16/20 16:00 12/16/20 16:00 12/16/20 16:00 12/16/20 16:00 <Carol Timmons - 12/17/20 15:11> Narrative: - Constitutional no acute distress - *Routine Respiratory Exam Present: CTA bilaterally (Anteriorly and posteriorly) - *Routine Cardiovascular Exam Present: RRR - *Routine Abdominal Exam Present: soft, normoactive bowel sounds. Absent: tenderness - *Routine Exam Comments: Bazan catheter to bedside drainage - *Routine Extremities Exam Absent: calf tenderness Comments: Knees elevated on pillow. Dressing on right knee is clean and dry. - *Routine Neurological Exam Present: alert, oriented X3 <Carol Timmons - 12/17/20 15:11> Results Labs on day
== END 2020-12-16 19:41 | disposition home health service (06) | DRG 603 ==
PROVIDERS: Admitting Provider Family Medicine; PCP Family Medicine; Visit Provider Family Medicine
DX: L02.415 Cutaneous abscess of right lower limb (principal); A49.02 Methicillin resistant Staphylococcus aureus infection, unspecified site; Z20.822 Contact with and (suspected) exposure to COVID-19; R33.9 Retention of urine, unspecified; N18.30 Chronic kidney disease, stage 3 unspecified; I12.9 Hypertensive chronic kidney disease with stage 1 through stage 4 chronic kidney disease, or unspecified chronic kidney disease; Z85.41 Personal history of malignant neoplasm of cervix uteri; K21.9 Gastro-esophageal reflux disease without esophagitis; G43.909 Migraine, unspecified, not intractable, without status migrainosus; E78.5 Hyperlipidemia, unspecified; K59.00 Constipation, unspecified
CPT/HCPCS: 10060; 36569; 36415; 71045; 73702; 80053; 80202; 83605; 85025; 85651; 86140; 87070; 87077; 87186; 87205; C1751; C9803; G0378; J2405; J3370; Q9967; U0003; U0005

== ENCOUNTER → 2020-12-23 17:04 | Outpatient (CLI) | payer BC, MEDICARE, SELFPAY ==
[2020-12-23 17:45] LABS: Vancomycin,Trough 16.1 ug/mL (5.0-10.0)
[2020-12-24 11:59] LABS: Chloride 101 mmol/L (98-107); Potassium 4.6 mmoL/L (3.5-5.1); Sodium 130 mmol/L (136-145)
[2020-12-24 12:02] LABS: Alanine Aminotransferase 10 U/L (12-78); Albumin Level 2.4 g/dl (3.5-5.0); Albumin/Globulin Ratio 0.9 (1.1-1.8); Alkaline Phosphatase 140 U/L (38-126); Anion Gap 12.6 mEq/L (5-15); Aspartate Amino Transferase 24 U/L (14-36); Blood Urea Nitrogen 10 mg/dl (7-17); Calcium 8.5 mg/dl (8.4-10.2); Carbon Dioxide 21 mmol/L (22.0-30.0); Estimated Glomerular Filt Rate 55 ml/min (>60); GFR (African American) 67 ML/MIN (>60); Globulin 2.8 g/dL (1.3-3.2); Glucose 97 mg/dl (74-100); Total Protein,Serum 5.2 g/dl (6.3-8.2)
[2020-12-24 12:03] LABS: Bilirubin,Total < 0.1 mg/dl (0.2-1.3)
[2020-12-24 12:34] LABS: Erythrocyte Sedimentation Rate 99 mm/hr (0-30)
== END ==
PROVIDERS: Family Medicine; Visit Provider Orthopaedic Surgery
DX: A49.02 Methicillin resistant Staphylococcus aureus infection, unspecified site; L02.415 Cutaneous abscess of right lower limb
CPT/HCPCS: 80053; 80202; 85651

== ENCOUNTER → 2020-12-30 16:02 | Outpatient (CLI) | payer BC, MEDICARE, SELFPAY ==
[2020-12-30 16:17] LABS: Basophils % 0.6 % (0.1-2.0); Eosinophils # 0.3 K/mm3 (0.0-0.4); Eosinophils % 4.3 % (0.1-12.0); Hematocrit 25.5 % (37.0-47.0); Lymphocytes # 1.5 K/mm3 (0.7-4.5); Mean Corpuscular HGB Conc 31.2 g/dL (31.8-35.4); Mean Corpuscular Hemoglobin 27.9 pg (27.0-31.2); Mean Corpuscular Volume 89.4 fl (81-99); Mean Platelet Volume 9.1 fl (7.4-10.4); Monocytes # 0.6 K/mm3 (0.1-1.0); Monocytes % 7.2 % (1.7-9.3); Neutrophils # 5.3 K/mm3 (1.8-7.8); Neutrophils % 68.9 % (37.0-80.0); Platelet Count 432 K/mm3 (142-424); Red Blood Count 2.85 M/mm3 (4.20-5.40); Red Cell Distribution Width 14.8 % (11.5-17.5); White Blood Count 7.7 K/mm3 (4.8-10.8)
[2020-12-30 16:27] LABS: Chloride 104 mmol/L (98-107); Potassium 4.2 mmoL/L (3.5-5.1); Sodium 131 mmol/L (136-145)
[2020-12-30 16:30] LABS: Alanine Aminotransferase 9 U/L (12-78); Albumin Level 2.5 g/dl (3.5-5.0); Albumin/Globulin Ratio 0.8 (1.1-1.8); Alkaline Phosphatase 124 U/L (38-126); Anion Gap 9.2 mEq/L (5-15); Aspartate Amino Transferase 27 U/L (14-36); Blood Urea Nitrogen 11 mg/dl (7-17); Calcium 8.7 mg/dl (8.4-10.2); Carbon Dioxide 22 mmol/L (22.0-30.0); Estimated Glomerular Filt Rate 84 ml/min (>60); GFR (African American) 101 ML/MIN (>60); Glucose 93 mg/dl (74-100); Total Protein,Serum 5.5 g/dl (6.3-8.2)
[2020-12-30 16:35] LABS: Bilirubin,Total < 0.1 mg/dl (0.2-1.3)
[2020-12-30 16:36] LABS: C-Reactive Protein 20.6 mg/L (0-4)
[2020-12-30 16:51] LABS: Vancomycin,Trough 18.2 ug/mL (5.0-10.0)
== END ==
PROVIDERS: Visit Provider Family Medicine
DX: Z51.81 Encounter for therapeutic drug level monitoring (principal)
CPT/HCPCS: 80053; 80202; 85025; 86140

== ENCOUNTER → 2021-01-07 12:44 | Outpatient (CLI) | payer BC, MEDICARE, SELFPAY ==
[2021-01-07 12:57] LABS: Basophils # 0.1 K/mm3 (0-0.2); Basophils % 1.5 % (0.1-2.0); Eosinophils # 0.3 K/mm3 (0.0-0.4); Eosinophils % 4.2 % (0.1-12.0); Hematocrit 25.9 % (37.0-47.0); Hemoglobin 8.1 g/dL (12.2-16.2); Lymphocytes # 1.2 K/mm3 (0.7-4.5); Lymphocytes % 19.7 % (10-50); Mean Corpuscular HGB Conc 31.1 g/dL (31.8-35.4); Mean Corpuscular Hemoglobin 27.7 pg (27.0-31.2); Mean Corpuscular Volume 89.1 fl (81-99); Mean Platelet Volume 9.7 fl (7.4-10.4); Monocytes # 0.5 K/mm3 (0.1-1.0); Neutrophils % 66.6 % (37.0-80.0); Platelet Count 439 K/mm3 (142-424); Red Blood Count 2.91 M/mm3 (4.20-5.40); Red Cell Distribution Width 14.5 % (11.5-17.5)
[2021-01-07 13:11] LABS: Alanine Aminotransferase 14 U/L (12-78); Albumin Level 2.4 g/dl (3.5-5.0); Albumin/Globulin Ratio 0.8 (1.1-1.8); Alkaline Phosphatase 170 U/L (38-126); Anion Gap 6.9 mEq/L (5-15); Aspartate Amino Transferase 33 U/L (14-36); Blood Urea Nitrogen 9 mg/dl (7-17); Carbon Dioxide 26 mmol/L (22.0-30.0); Chloride 100 mmol/L (98-107); Estimated Glomerular Filt Rate 72 ml/min (>60); GFR (African American) 87 ML/MIN (>60); Globulin 2.9 g/dL (1.3-3.2); Glucose 102 mg/dl (74-100); Potassium 3.9 mmoL/L (3.5-5.1); Sodium 129 mmol/L (136-145); Total Protein,Serum 5.3 g/dl (6.3-8.2)
[2021-01-07 13:13] LABS: Bilirubin,Total 0.1 mg/dl (0.2-1.3)
[2021-01-07 13:16] LABS: C-Reactive Protein 29.6 mg/L (0-4)
== END ==
PROVIDERS: Visit Provider Family Medicine
DX: M66.261 Spontaneous rupture of extensor tendons, right lower leg (principal); A49.02 Methicillin resistant Staphylococcus aureus infection, unspecified site
CPT/HCPCS: 80053; 85025; 86140

== ENCOUNTER → 2021-01-17 15:30 | Outpatient (CLI) | payer BC, MEDICARE, SELFPAY | PROVIDERS: Visit Provider Orthopaedic Surgery | DX: Z01.812 Encounter for preprocedural laboratory examination (principal); Z11.52 Encounter for screening for COVID-19 | CPT/HCPCS: C9803; U0003; U0005 ==

== ENCOUNTER → 2021-05-19 16:33 | Outpatient (CLI) | payer BC, MEDICARE, SELFPAY ==
[2021-05-19 17:21] LABS: Basophils # 0.1 K/mm3 (0-0.2); Eosinophils # 0.4 K/mm3 (0.0-0.4); Eosinophils % 6.4 % (0.1-12.0); Hematocrit 38.7 % (37.0-47.0); Hemoglobin 12.2 g/dL (12.2-16.2); Lymphocytes # 1.9 K/mm3 (0.7-4.5); Lymphocytes % 32.8 % (10-50); Mean Corpuscular HGB Conc 31.4 g/dL (31.8-35.4); Mean Corpuscular Hemoglobin 28.7 pg (27.0-31.2); Mean Corpuscular Volume 91.5 fl (81-99); Mean Platelet Volume 8.3 fl (7.4-10.4); Monocytes # 0.4 K/mm3 (0.1-1.0); Monocytes % 6.8 % (1.7-9.3); Platelet Count 278 K/mm3 (142-424); Red Blood Count 4.23 M/mm3 (4.20-5.40); Red Cell Distribution Width 14.9 % (11.5-17.5); White Blood Count 5.7 K/mm3 (4.8-10.8)
[2021-05-19 17:57] LABS: Alanine Aminotransferase 8 U/L (12-78); Albumin Level 3.7 g/dl (3.5-5.0); Albumin/Globulin Ratio 1.4 (1.1-1.8); Alkaline Phosphatase 108 U/L (38-126); Anion Gap 11.4 mEq/L (5-15); Aspartate Amino Transferase 22 U/L (14-36); Bilirubin,Total 0.5 mg/dl (0.2-1.3); Blood Urea Nitrogen 17 mg/dl (7-17); Calcium 9.5 mg/dl (8.4-10.2); Carbon Dioxide 26 mmol/L (22.0-30.0); Chloride 101 mmol/L (98-107); Estimated Glomerular Filt Rate 55 ml/min (>60); GFR (African American) 67 ML/MIN (>60); Globulin 2.6 g/dL (1.3-3.2); Glucose 88 mg/dl (74-100); Potassium 4.4 mmoL/L (3.5-5.1); Sodium 134 mmol/L (136-145); Total Protein,Serum 6.3 g/dl (6.3-8.2)
[2021-05-19 18:02] LABS: C-Reactive Protein 1.2 mg/L (0-4)
[2021-05-19 18:40] LABS: Erythrocyte Sedimentation Rate 16 mm/hr (0-30)
== END ==
PROVIDERS: PCP Family Medicine; Visit Provider Nurse Practitioner Family
DX: B35.1 Tinea unguium (principal)
CPT/HCPCS: 80053; 85025; 85651; 86140; 87070; 87077; 87102; 87106; 87205; 87206

== ENCOUNTER → 2021-09-06 10:25 | Outpatient (CLI) | payer BC, MEDICARE, SELFPAY ==
[2021-09-06 11:40] LABS: Alanine Aminotransferase 13 U/L (12-78); Albumin Level 3.8 g/dl (3.5-5.0); Albumin/Globulin Ratio 1.3 (1.1-1.8); Alkaline Phosphatase 122 U/L (38-126); Anion Gap 11.8 mEq/L (5-15); Aspartate Amino Transferase 30 U/L (14-36); Bilirubin,Total 0.7 mg/dl (0.2-1.3); Blood Urea Nitrogen 16 mg/dl (7-17); Calcium 9.3 mg/dl (8.4-10.2); Carbon Dioxide 25 mmol/L (22.0-30.0); Chloride 98 mmol/L (98-107); Chol/HDL Ratio 2.2 (1-3.5); Cholesterol 138 mg/dl (140-200); Estimated Glomerular Filt Rate 72 ml/min (>60); GFR (African American) 87 ML/MIN (>60); Globulin 2.9 g/dL (1.3-3.2); Glucose 90 mg/dl (74-100); HDL Cholesterol 63 mg/dl (40-60); Potassium 3.8 mmoL/L (3.5-5.1); Sodium 131 mmol/L (136-145); Total Protein,Serum 6.7 g/dl (6.3-8.2); Triglycerides 55 mg/dl (30-150); VLDL Cholesterol 11 mg/dL (0-40)
[2021-09-06 11:52] LABS: Direct LDL Cholesterol 45.34 mg/dL (100-129)
== END ==
PROVIDERS: PCP Family Medicine; Visit Provider Family Medicine
DX: I10 Essential (primary) hypertension (principal); E78.5 Hyperlipidemia, unspecified
CPT/HCPCS: 36415; 80053; 80061

== ENCOUNTER 2022-05-20 11:30 | Emergency (ER) | payer BC, MEDICARE, SELFPAY ==
[2022-05-20] VITALS (10 sets, daily range): BP systolic 93–147; BP diastolic 52–79; PULSE 73–86; RESP 18; TEMP 36.6–36.7; O2SAT 95–99; BMI 26.6
--- NOTE | 2022-05-20 11:38 | PC.NURSE ---
DR REECE AT BEDSIDE FOR EVALUATION
--- NOTE | 2022-05-20 11:43 | HMH.EDGENADL ---
Discharge Plan Disposition Patient Disposition: Xfer Other Condition: Fair Prescriptions Prescriptions: No Action topiramate 50 mg tablet 50 mg PO DAILY metoclopramide HCl 10 MG tablet 10 mg PO BID potassium chloride 10 MEQ capsule, extended release 10 meq PO BID atorvastatin 20 MG tablet 20 mg PO HS pantoprazole 40 MG tablet,delayed release (DR/EC) 40 mg PO DAILY trazodone 50 MG tablet 50 mg PO HS morphine 15 MG tablet extended release 15 mg PO BIDP PRN (Reason: pain) midodrine 10 MG tablet 10 mg PO BID hyoscyamine sulfate 0.125 mg tablet 0.125 mg PO BID Referrals Follow up/Referrals: Juan José Kendall MD [Primary Care Provider] - See instructions Clinical Impressions Clinical Impression: Choledocholithiasis with acute cholecystitis Stand Alone Forms Stand Alone Forms: Transfer Record - ED Instructions Patient Instructions: DI for Acute Abdominal Pain Discharge ED Provider: Jose Manuel Benjamin General Adult HPI General Chief complaint: Abdominal Pain Stated complaint: abd pain,nausea Time Seen by Provider: 05/20/22 11:38 History of Present Illness HPI narrative: Patient presents complaining of severe abdominal pain but that began earlier this morning at approximate 7 AM. She has had some vomiting she denies diarrhea. She denies exacerbating alleviating factors. Related Data Home Medications Medication Instructions Recorded Confirmed metoclopramide HCl 10 mg tablet 10 mg PO BID Nausea & vomiting 03/06/18 05/20/22 atorvastatin 20 mg tablet 20 mg PO HS Cholesterol 11/02/18 05/20/22 pantoprazole 40 mg tablet,delayed 40 mg PO DAILY acid reflux 11/02/18 05/20/22 release midodrine 10 mg tablet 10 mg PO BID hypotension 06/27/20 05/20/22 morphine 15 mg tablet,extended 15 mg PO BIDP PRN pain 06/27/20 05/20/22 release trazodone 50 mg tablet 50 mg PO HS sleep 06/27/20 05/20/22 potassium chloride 10 mEq 10 meq PO BID Supplement 12/14/20 05/20/22 capsule,extended release topiramate 50 mg tablet 50 mg PO DAILY MIGRAINES 05/19/21 05/20/22 hyoscyamine sulfate 0.125 mg tablet 0.125 mg PO BID GI 05/20/22 05/20/22 Allergies Allergy/AdvReac Type Severity Reaction Status Date / Time amoxicillin [From Augmentin] Allergy Severe Rash Verified 11/25/21 14:03 clavulanic acid Allergy Severe Rash Verified 11/25/21 14:03 [From Augmentin] clarithromycin [From BIAXIN] Allergy Unknown Verified 11/25/21 14:03 PFSH [facility] Disclaimer: The information contained in this section may have been updated after the patient was seen, as this information can be updated by other users. Medical History (Updated 05/20/22 @ 17:17 by Jose Manuel Benjamin MD) Above knee amputation of right lower extremity Surgical History (Updated 05/20/22 @ 12:42 by Laura Craft RN) History of appendectomy History of hysterectomy Family History (Updated 05/20/22 @ 12:42 by Laura Craft RN) Other No significant family history Social History (Updated 05/20/22 @ 12:42 by Laura Craft RN) Smoking Status: Never smoker alcohol intake: current substance use type: denies use current occupational status: disabled Travel in the last 8 weeks: None household members: spouse housing: house current occupational exposures/hazards: No caffeine: Yes ROS Obtained: Yes All systems reviewed & no additional complaints except as documented Physical Exam General General appearance: other (The patient appears uncomfortable) Head Head exam: atraumatic, normocephalic and normal inspection Eye Eye exam: Present normal appearance, PERRL and EOMI ENT ENT exam: Present normal exam, normal oropharynx, mucous membranes moist, TM's normal bilaterally and normal external ear exam Neck Neck exam: Present normal inspection, full ROM and trachea midline; Absent meningismus or lymphadenopathy Chest Chest inspection: Present normal inspection and symmetric chest w
--- NOTE | 2022-05-20 12:09 | CT_ITS ---
FINAL REPORT TECHNIQUE: Thin section axial images were obtained through the abdomen after intravenous contrast. Reconstruction images were obtained from the axial data. Exam was performed using dose reduction techniques. CLINICAL HISTORY: abd pain COMPARISON: 06/27/2020 FINDINGS: The lung bases are clear. The liver is homogeneous. There is new, intrahepatic biliary ductal dilatation and mild extrahepatic biliary ductal dilatation. The gallbladder is distended without stones. There is new, gallbladder wall thickening or pericholecystic fluid, acute cholecystitis is a consideration. The spleen, adrenal glands, and pancreas are unremarkable. There is no hydronephrosis or solid renal mass. There is a large hiatal hernia, increased in size. There is no abdominal lymphadenopathy or ascites. There is a sizable duodenal diverticulum. There is no small bowel obstruction. The patient is status post hysterectomy. The bladder is unremarkable. The appendix is not visualized but there are no secondary signs to suggest appendicitis. There is diverticulosis. There is long segment distal colon wall thickening with mild surrounding abnormal attenuation, favor colitis. An age indeterminate L2 compression fracture is identified. There is no pelvic lymphadenopathy or ascites. No acute osseous abnormalities identified. IMPRESSION: Distended gallbladder with gallstones and wall thickening or pericholecystic fluid as well as new biliary ductal dilatation, cholecystitis is a consideration. Long segment distal colon wall thickening as detailed above, favor colitis. Large hiatal hernia, increased in size since prior. Reviewed, Interpreted and Dictated by Irina Grande MD Transcribed by Dahlia Pastor Authenticated and [facility]
[2022-05-20 12:22] LABS: Basophils # 0.1 K/mm3 (0-0.2); Basophils % 0.4 % (0.1-2.0); Chloride 106 mmol/L (98-107); Eosinophils % 0.3 % (0.1-12.0); Hematocrit 44.6 % (37.0-47.0); Hemoglobin 14.5 g/dL (12.2-16.2); Lymphocytes # 0.6 K/mm3 (0.7-4.5); Lymphocytes % 4.4 % (10-50); Mean Corpuscular HGB Conc 32.4 g/dL (31.8-35.4); Mean Corpuscular Hemoglobin 29.7 pg (27.0-31.2); Mean Corpuscular Volume 91.4 fl (81-99); Mean Platelet Volume 8.4 fl (7.4-10.4); Monocytes # 0.3 K/mm3 (0.1-1.0); Monocytes % 2.1 % (1.7-9.3); Neutrophils # 11.3 K/mm3 (1.8-7.8); Neutrophils % 92.7 % (37.0-80.0); Platelet Count 253 K/mm3 (142-424); Potassium 3.7 mmoL/L (3.5-5.1); Red Blood Count 4.87 M/mm3 (4.20-5.40); Red Cell Distribution Width 13.5 % (11.5-17.5); Sodium 137 mmol/L (136-145); White Blood Count 12.2 K/mm3 (4.8-10.8)
[2022-05-20 12:24] LABS: Alanine Aminotransferase 82 U/L (12-78); Aspartate Amino Transferase 416 U/L (14-36); Blood Urea Nitrogen 16 mg/dl (7-17); Creatinine Clearance Estimated 54 mL/min (50-200); Estimated Glomerular Filt Rate 45 ml/min (>60); GFR (African American) 54 ML/MIN (>60); MANUAL DIFFERENTIAL MANUAL DIFFERENTIAL (MANUAL DIFF)
--- NOTE | 2022-05-20 12:24 | PC.NURSE ---
ROUNDED ON PT AT THIS TIME, PT REPORTS ADEQUATE PAIN RELIEF FROM EARLIER MEDICATION
[2022-05-20 12:25] LABS: Albumin Level 4.2 g/dl (3.5-5.0); Albumin/Globulin Ratio 1.3 (1.1-1.8); Alkaline Phosphatase 231 U/L (38-126); Bilirubin,Total 1.5 mg/dl (0.2-1.3); Globulin 3.3 g/dL (1.3-3.2); Glucose 151 mg/dl (74-100); Lipase 41 U/L (23-300); Total Protein,Serum 7.5 g/dl (6.3-8.2)
[2022-05-20 12:52] LABS: Appearance,Urine CLOUDY (Clear); Bilirubin,Urine Negative (Negative); Blood, Urine TRACE-I (Negative); Color,Urine YELLOW (Yellow); Glucose,Urine (UA) Negative (Negative); Ketones,Urine Negative (Negative); Leukocyte Esterase,Urine TRACE (Negative); Microscopic, Urine URINE MICROSCOPIC (MICROSCOPIC); Nitrate,Urine POSITIVE (Negative); PH,Urine 7.5 (5.0-8.5); Protein,Urine Negative (Negative)
[2022-05-20 12:59] LABS: Lymphocytes % 3 % (10-50); Monocytes % 2 % (2-9); Neutrophils % 95 % (42-76); Platelet Estimate Normal; RBC Morphology Normal; Total Cells Counted 100
[2022-05-20 13:03] LABS: Amorphous Sediment,Urine 1+ /lpf; Bacteria,Urine 4+ /lpf; Squamous Epithelial Cell,Urine Occasional #/hpf (0-5); WBC,Urine Occasional #/hpf (0-3)
--- NOTE | 2022-05-20 13:24 | INFXCTL.NOTE ---
PT PROVIDED WARM BLANKET, NO FURTHER NEEDS AT THIS TIME
--- NOTE | 2022-05-20 13:28 | PC.NURSE ---
PT TO CT AT THIS TIME
--- NOTE | 2022-05-20 13:29 | PC.NURSE ---
SPOKE WITH [facility] REGARDING A POSSIBLE MRCP , IF PT'S SCAN IS NEGATIVE , THEY APPROVED THAT AND MRI CAN DO IT AROUND [id number]
[2022-05-20 13:32] LABS: Coronavirus 19, PCR Not Detected (NotDetected); Influenza A, PCR Not Detected (NotDetected); Influenza B, PCR Not Detected (NotDetected)
[2022-05-20 13:35] LABS: Lactic Acid 1.3 mmol/L (0.7-2.1)
--- NOTE | 2022-05-20 14:16 | PC.NURSE ---
Rounded on patient; pt reports her pain is starting to come back. LISBETH Sanchez has been made aware. Family at BS. call light within reach.
--- NOTE | 2022-05-20 14:28 | PC.NURSE ---
PT ASSISTED TO [facility]
--- NOTE | 2022-05-20 14:50 | PC.NURSE ---
PT TO MRI
[2022-05-20 14:59] LABS: Anion Gap 11.7 mEq/L (5-15); Carbon Dioxide 23 mmol/L (22.0-30.0)
--- NOTE | 2022-05-20 15:03 | MR_ITS ---
PROCEDURE INFORMATION: Exam: MR Abdomen Without Contrast; Liver Exam date and time: 05/20/2022 3:31 PM Age: 66 years old Clinical indication: Abdominal pain; Patient HX: Mrcp - nausea and epigastric pain; Additional info: Abd pain, earlier CT showed biliary dilatation, possible cholecystitis. TECHNIQUE: Imaging protocol: MR Abdomen without contrast. Exam focused on the liver. COMPARISON: CT ABDOMEN PELVIS W CON 05/20/2022 1:32 PM FINDINGS: Liver: Unremarkable liver, study limited by motion. No lesions. Gallbladder and bile ducts: Distended gallbladder. Prominent pericholecystic fluid concerning for acute cholecystitis. Gallbladder wall up to at least 5-6 mm thickness. Cholelithiasis, e.g. series 7, image 18 showing 6 mm intraluminal filling defect. Dilated common duct up to 9 mm coronal series 3, image 14. Intraluminal filling defect in the distal common duct just above the ampulla measuring 5 mm diameter, likely choledocholithiasis, seen on coronal series 3, image 14 mild intrahepatic biliary ectasia. Pancreas: Thinned, atrophic appearing pancreas appears partially fatty replaced. No ductal dilatation. No obvious mass seen on this limited nonenhanced study. Kidneys and ureters: Minimal bilateral perinephric soft tissue edema/stranding as seen on prior CT. No acute findings. No hydronephrosis or mass, as visualized. Visualized proximal ureters are unremarkable. Intraperitoneal space: Trace free fluid. Fluid is predominantly pooling around the gallbladder in the right upper quadrant, there is also tiny amount of perihepatic and perisplenic fluid. Other findings: Also noted is diverticulosis coli, spinal degenerative changes with multilevel disc disease and spondylosis, prominent hiatal hernia. IMPRESSION: 1. Cholelithiasis, slightly thickened gallbladder wall, distended gallbladder with pericholecystic fluid, findings suggest acute cholecystitis. 2. Mildly dilated common duct 9 mm with intraluminal 6 mm filling defect in the distal duct, likely choledocholithiasis with biliary obstruction. 3. Motion artifacts, limiting the study. 4. Additional nonemergency and chronic findings as above.
--- NOTE | 2022-05-20 15:44 | PC.NURSE ---
PT REMAINS AT MRI
--- NOTE | 2022-05-20 16:40 | PC.NURSE ---
PT RETURNED FROM MRI
--- NOTE | 2022-05-20 17:15 | PC.NURSE ---
DR REECE SPEAKING WITH [employer]
--- NOTE | 2022-05-20 17:18 | PC.NURSE ---
PT UPDATED BY DR REECE AT THIS TIME
--- NOTE | 2022-05-20 17:20 | PC.NURSE ---
IMAGES POWER-SHARED WITH [facility]
--- NOTE | 2022-05-20 17:21 | PC.NURSE ---
Called [facility] for a GI consult; awaiting call back
--- NOTE | 2022-05-20 17:47 | PC.NURSE ---
DR REECE SPEAKING WITH [facility]
--- NOTE | 2022-05-20 17:54 | PC.NURSE ---
assisted pt to the bathroom, ice chips given
--- NOTE | 2022-05-20 18:04 | PC.NURSE ---
DR REECE AT BEDSIDE TO UPDATE PT AND FAMILY ON POC PT HAS BEEN ACCEPTED TO GENERAL SURGERY, PER DR. PRESTON. AWAITING BED ASSIGNMENT
--- NOTE | 2022-05-20 18:41 | PC.NURSE ---
EMS NOTIFIED OF TRANSFER TO [facility]
--- NOTE | 2022-05-20 20:11 | PC.NURSE ---
rounded on patient at this time. Updated her on EMS status and that they were out on 911 call and as soon as there was a truck available there would be up. PT agreeable with POC. She was resting in bed watching tv, she had no other needs at this time.
== END 2022-05-20 21:20 | disposition short-term general hospital (02) ==
PROVIDERS: Emergency Provider Emergency Medicine; PCP Family Medicine
DX: K80.42 Calculus of bile duct with acute cholecystitis without obstruction (principal); Z89.611 Acquired absence of right leg above knee; Z90.710 Acquired absence of both cervix and uterus; Z90.49 Acquired absence of other specified parts of digestive tract; Z20.822 Contact with and (suspected) exposure to COVID-19
CPT/HCPCS: 74177; 74181; 76376; 80053; 81001; 83605; 83690; 85007; 85025; 87040; 87086; 87088; 87186; 96361; 96365; 96366; 96375; 99285; C9803; J0696; J1956; J2405; Q9967; U0003; U0005

== ENCOUNTER → 2022-10-03 08:53 | Outpatient (CLI) | payer BC, MEDICARE, SELFPAY ==
[2022-10-03 09:37] LABS: Basophils % 0.3 % (0.1-2.0); Eosinophils # 0.3 K/mm3 (0.0-0.4); Eosinophils % 4.1 % (0.1-12.0); Hematocrit 41.2 % (37.0-47.0); Hemoglobin 12.7 g/dL (12.2-16.2); Lymphocytes # 1.3 K/mm3 (0.7-4.5); Lymphocytes % 18.9 % (10-50); Mean Corpuscular HGB Conc 30.7 g/dL (31.8-35.4); Mean Corpuscular Hemoglobin 27.2 pg (27.0-31.2); Mean Corpuscular Volume 88.7 fl (81-99); Mean Platelet Volume 7.4 fl (7.4-10.4); Monocytes # 0.4 K/mm3 (0.1-1.0); Monocytes % 5.2 % (1.7-9.3); Neutrophils # 4.9 K/mm3 (1.8-7.8); Neutrophils % 71.5 % (37.0-80.0); Platelet Count 278 K/mm3 (142-424); Red Blood Count 4.65 M/mm3 (4.20-5.40); Red Cell Distribution Width 15.1 % (11.5-17.5); White Blood Count 6.9 K/mm3 (4.8-10.8)
[2022-10-03 09:47] LABS: Alanine Aminotransferase 12 U/L (12-78); Albumin Level 3.1 g/dl (3.5-5.0); Albumin/Globulin Ratio 1.1 (1.1-1.8); Alkaline Phosphatase 191 U/L (38-126); Anion Gap 10.5 mEq/L (5-15); Aspartate Amino Transferase 24 U/L (14-36); Bilirubin,Total 0.3 mg/dl (0.2-1.3); Blood Urea Nitrogen 15 mg/dl (7-17); Calcium 8.8 mg/dl (8.4-10.2); Carbon Dioxide 28 mmol/L (22.0-30.0); Chloride 97 mmol/L (98-107); Chol/HDL Ratio 1.9 (1-3.5); Cholesterol 109 mg/dl (140-200); Estimated Glomerular Filt Rate 49 ml/min (>60); GFR (African American) 60 ML/MIN (>60); Globulin 2.8 g/dL (1.3-3.2); Glucose 91 mg/dl (74-100); HDL Cholesterol 58 mg/dl (40-60); Magnesium 1.8 mg/dl (1.6-2.3); Potassium 4.5 mmoL/L (3.5-5.1); Sodium 131 mmol/L (136-145); Total Protein,Serum 5.9 g/dl (6.3-8.2); Triglycerides 58 mg/dl (30-150); VLDL Cholesterol 12 mg/dL (0-40)
[2022-10-03 09:48] LABS: Iron 70 ug/dL (37-170)
[2022-10-03 10:04] LABS: Direct LDL Cholesterol 44.26 mg/dL (100-129); T4 (Thyroxine) 7.4 ug/dl (5.53-11.0)
[2022-10-03 10:17] LABS: Thyroid Stimulating Hormone 2.26 uIU/mL (0.465-4.68)
== END ==
PROVIDERS: PCP Family Medicine; Visit Provider Family Medicine
DX: E03.9 Hypothyroidism, unspecified (principal); E78.5 Hyperlipidemia, unspecified
CPT/HCPCS: 36415; 80053; 80061; 83540; 83735; 84436; 84443; 85025

== ENCOUNTER → 2022-11-24 14:41 | Outpatient (POV) | payer BC, MEDICARE, SELFPAY | PROVIDERS: Visit Provider Dermatology | DX: Z00.00 Encounter for general adult medical examination without abnormal findings (principal) ==

== ENCOUNTER 2023-08-16 15:50 | Emergency (ER) | payer MEDICARE, BC, SELFPAY ==
[2023-08-16 15:51] VITALS: BP 121/68; PULSE 89; RESP 20; TEMP 36.4; O2SAT 99; BMI 30.7
--- NOTE | 2023-08-16 16:11 | ED_ITS ---
Discharge Plan Disposition Patient Disposition: Home, Self-Care Condition: Good Prescriptions Prescriptions: No Action topiramate 50 mg tablet 50 mg PO DAILY metoclopramide HCl 10 MG tablet 10 mg PO BID potassium chloride 10 MEQ capsule, extended release 10 meq PO BID atorvastatin 20 MG tablet 20 mg PO HS pantoprazole 40 MG tablet,delayed release (DR/EC) 40 mg PO DAILY trazodone 50 MG tablet 50 mg PO HS morphine 15 MG tablet extended release 15 mg PO BIDP PRN (Reason: pain) midodrine 10 MG tablet 10 mg PO BID hyoscyamine sulfate 0.125 mg tablet 0.125 mg PO BID Referrals Follow up/Referrals: Jose R Patel MD [Referring] - See instructions Juan José Kendall MD [Primary Care Provider] - See instructions Activity Restrictions/Add. Instructions Additional Instructions/Restrictions: Please follow-up with your PCP as scheduled. I referred you to Dr. Jose R Patel bariatric surgeon for evaluation of your hiatal hernia. Please keep your follow-up appointment with gastroenterology. Please return to emergency room for any worsening signs or symptoms. Clinical Impressions Clinical Impression: Abdominal pain, acute, Hernia, hiatal Instructions Patient Instructions: DI for Acute Abdominal Pain Discharge ED Provider: Rolando Myles General Adult HPI <ZECHARIAH Carey - Last Filed: 08/16/23 18:47> General Chief complaint: Abdominal Pain Stated complaint: abd pain Time Seen by Provider: 08/16/23 16:11 History of Present Illness HPI narrative: Patient presents for evaluation of abdominal pain. Patient reports that she developed abdominal pain after a meal that radiated up into her chest into her left shoulder. Patient reports that she has had the symptoms for over a year. Patient was recently evaluated by gastroenterology at 03 August and prescribed Linzess but no further follow-up has occurred yet. Patient denies shortness of breath chest pain shortness of breath diarrhea hemoptysis hematochezia melena hematemesis hematuria. Patient does report occasional nausea vomiting although she did not vomit today she did have nausea. Patient still reports symptoms are present currently of pain but the nausea has subsided. Related Data Home Medications Medication Instructions Recorded Confirmed metoclopramide HCl 10 mg tablet 10 mg PO BID Nausea & vomiting 03/06/18 05/20/22 atorvastatin 20 mg tablet 20 mg PO HS Cholesterol 11/02/18 05/20/22 pantoprazole 40 mg tablet,delayed 40 mg PO DAILY acid reflux 11/02/18 05/20/22 release midodrine 10 mg tablet 10 mg PO BID hypotension 06/27/20 05/20/22 morphine 15 mg tablet,extended 15 mg PO BIDP PRN pain 06/27/20 05/20/22 release trazodone 50 mg tablet 50 mg PO HS sleep 06/27/20 05/20/22 potassium chloride 10 mEq 10 meq PO BID Supplement 12/14/20 05/20/22 capsule,extended release topiramate 50 mg tablet 50 mg PO DAILY MIGRAINES 05/19/21 05/20/22 hyoscyamine sulfate 0.125 mg tablet 0.125 mg PO BID GI 05/20/22 05/20/22 Allergies Allergy/AdvReac Type Severity Reaction Status Date / Time amoxicillin [From Augmentin] Allergy Severe Rash Verified 11/25/21 14:03 clavulanic acid Allergy Severe Rash Verified 11/25/21 14:03 [From Augmentin] clarithromycin [From BIAXIN] Allergy Unknown Verified 11/25/21 14:03 PFSH <ZECHARIAH Carey - Last Filed: 08/16/23 18:47> [facility] Disclaimer: The information contained in this section may have been updated after the patient was seen, as this information can be updated by other users. Medical History (Updated 08/16/23 @ 18:31 by ZECHARIAH Carey) Above knee amputation of right lower extremity Surgical History (Updated 05/20/22 @ 12:42 by Laura Craft RN) History of appendectomy History of hysterectomy Family History (Updated 05/20/22 @ 12:42 by Laura Craft RN) Other No significant family history Social History (Updated 05/20/22 @ 12:42 by Laura Craft RN) Smoking Status: Never smoker alcohol intake: current alcohol intake frequency: holidays/special occasions only substance use type: denies use current occupational status: disabled Travel in the last 8 weeks: None household members: spouse housing: house current occupational exposures/hazards: No caffeine: Yes <ZECHARIAH Carey - Last Filed: 08/16/23 18:47> ROS Obtained: Yes Systems reviewed as appropriate & no additional complaints except as documented Physical Exam <ZECHARIAH Carey - Last Filed: 08/16/23 18:47> General General appearance: alert and in no apparent distress Respiratory Respiratory exam: Present normal lung sounds bilaterally Cardiovascular Cardiovascular exam: Present regular rate and normal rhythm Abdominal Exam Abdominal exam: Present soft, tenderness (Diffuse abdominal tenderness mildly to exam) and normal bowel sounds; Absent guarding or rebound Extremities Exam Extremities exam: Absent normal inspection (Patient is status post AKA of the right lower extremity. Patient has nonpitting lymphedema of the left lower extremity. Patient has no pain on palpation. With normal skin color and cap refill.) Back Exam Back exam: Present normal inspection and full ROM; Absent tenderness Neurological Exam Neurological exam: Present alert and oriented X3 Medical Decision Making <ZECHARIAH Carey - Last Filed: 08/16/23 18:47> Medical Records Medical records reviewed: Yes I reviewed the patient's medical records. Brant Inquiry Pt receiving controlled substance: No Vital Signs: 08/16/23 15:51 08/16/23 16:31 08/16/23 17:00 Temperature 97.5 F L Temperature Source Oral Pulse Rate 85 77 Pulse Rate [Right Radial] 89 Respiratory Rate 20 16 Blood Pressure 104/67 L 112/67 Blood Pressure [Right Arm] 121/68 Blood Pressure Mean 83 Blood Pressure Mean [Right Arm] 85 Blood Pressure Source Blood Pressure Source [Right Arm] Automatic Cuff Blood Pressure Position Blood Pressure Position [Right Arm] Supine 02 Sat by Pulse Oximetry 99 100 99 Oxygen Delivery Method Room Air Room Air 08/16/23 17:30 08/16/23 18:41 Temperature 98.7 F Temperature Source Oral Pulse Rate 73 86 Pulse Rate [Right Radial] Respiratory Rate 16 20 Blood Pressure 122/78 126/65 Blood Pressure [Right Arm] Blood Pressure Mean 89 Blood Pressure Mean [Right Arm] Blood Pressure Source Automatic Cuff Blood Pressure Source [Right Arm] Blood Pressure Position Supine Blood Pressure Position [Right Arm] 02 Sat by Pulse Oximetry 99 Oxygen Delivery Method Room Air Lab Data Lab results reviewed: Yes I reviewed the patient's lab results. Lab Results 08/16/23 16:30: WBC 6.4, RBC 3.93 L, Hgb 12.0 L, Hct 38.0, MCV 96.7, MCH 30.5, M CHC 31.5 L, RDW 14.4, Plt Count 263, MPV 7.7, Neut % (Auto) 78.1, Lymph % (Auto) 13.6, [place] % (Auto) 4.4, Eos % (Auto) 2.9, Baso % (Auto) 1.0, Neut # (Auto) 5.0, Lymph # (Auto) 0.9, [place] # (Auto) 0.3, Eos # (Auto) 0.2, Baso # (Auto) 0.1, S odium 130 L, Potassium 3.9, Chloride 98, Carbon Dioxide 27, Anion Gap 8.9, BUN 13, Creatinine 0.90, Estimated Creat Clear 73, Estimated GFR 62, Est GFR ( Amer) 75, Glucose 117 H, Lactate 0.6 L, Calcium 8.8, Magnesium 1.8, Troponin I < 0.01, NT-Pro-B Natriuret Pep 758 H, Lipase 30 08/16/23 16:30 08/16/23 16:30 Orders (Tests/Meds): ED MEDICATIONS Discontinued Medications Generic Name Dose Route Start Last Admin Trade Name Duane PRN Reason Stop Dose Admin Acetaminophen 1,000 mg 08/16/23 17:22 08/16/23 17:34 Acetaminophen 1,000mg/100ml Vial IV 08/16/23 17:23 1,000 mg ONCE ONE Administration Belladonna Alkaloids 60 ml 08/16/23 17:22 08/16/23 17:34 Belladonna Alkaloids 60 Ml Ml PO 08/16/23 17:23 60 ml ONCE ONE Administration Lactated Ringer's 1,000 mls @ 999 mls/hr 08/16/23 17:22 08/16/23 17:35 Lactated Ringer's 1000 Ml Bag IV 08/16/23 18:22 999 mls/hr .Q1H1M ONE Administration Iopamidol 75 ml 08/16/23 17:58 08/16/23 18:01 Iopamidol-370 (76%);100ml Bottle IV 08/16/23 17:59 75 ml ONCE ONE Administration Ketorolac Tromethamine 15 mg 08/16/23 17:22 08/16/23 17:34 Ketorolac 30mg/Ml Vial IV 08/16/23 17:23 15 mg ONCE ONE Administration Ondansetron HCl 4 mg 08/16/23 17:22 08/16/23 17:35 Ondansetron 4mg Odt SL 08/16/23 17:23 4 mg ONCE ONE Administration Sodium Chloride 10 ml 08/16/23 16:29 Sodium Chloride 0.9% 10ml Flush Syringe IV 09/15/23 16:28 NEEDED PRN Maintain IV Site Sodium Chloride 10 ml 08/16/23 17:58 08/16/23 18:01 Sodium Chloride 0.9% 10ml Syr (Rad Only) IV 08/16/23 17:59 10 ml ONCE ONE Administration Sodium Chloride 50 ml 08/16/23 17:58 08/16/23 18:01 0.9 % Sodium Chloride 50 Ml Vial IV 08/16/23 17:59 50 ml ONCE ONE Administration ORDERS Category Date Time Status CT abdomen pelvis w con Stat Cat Scan 08/16/23 17:[address] angio chest PE protocol Stat Cat Scan 08/16/23 17:23 Completed XR chest portable Stat Exams 08/16/23 16:29 Completed Basic Metabolic Panel Stat Lab 08/16/23 16:30 Completed Complete Blood Count Auto Diff Stat Lab 08/16/23 16:30 Completed Lactic Acid Stat Lab 08/16/23 16:30 Completed Lipase Stat Lab 08/16/23 16:30 Completed Magnesium Stat Lab 08/16/23 16:30 Completed NT Pro Brain Natriuretic Pep. Stat Lab 08/16/23 16:30 Completed Troponin I Stat Lab 08/16/23 16:30 Completed Medical Decision Narrative: In summary patient is a 67-year-old female who presents to the emergency department for evaluation of abdominal pain. Patient is dynamically stable upon arrival, afebrile. Physical exam is remarkable for mild diffuse abdominal pain with normal breath sounds normal bowel sounds and no radiation no masses palpated. Patient is status post right AKA with significant left lower extremity lymphedema that is at its normal chronic baseline. Differential diagnosis includes GERD versus gastroparesis versus hiatal hernia versus ulcer. Patient is post cholecystectomy. Initial workup will be conducted with hematologic labs CT scan chest abdomen pelvis. Initial interventions include IV fluids Toradol Tylenol GI cocktail. Initial workup reviewed by me shows a normal hematologic workup that is nonactionable and my review of her CT scans show a significant hiatal hernia with partial intrathoracic stomach and a torturous esophagus, large stool burden but no other acute processes with radiology read pending. Upon repeat evaluation patient reports resolution of her discomfort after the GI cocktail. Patient is also has no problems with passing flatus.. Given this patient is appropriate for discharge with follow-up with her PCP, referral to Dr. Jose R Patel for evaluation of repair of her hiatal hernia. Patient to continue following up with gastroenterology as scheduled. <Rolando Myles, DO - Last Filed: 08/16/23 23:43> Vital Signs: 08/16/23 15:51 08/16/23 16:31 08/16/23 17:00 Temperature 97.5 F L Temperature Source Oral Pulse Rate 85 77 Pulse Rate [Right Radial] 89 Respiratory Rate 20 16 Blood Pressure 104/67 L 112/67 Blood Pressure [Right Arm] 121/68 Blood Pressure Mean 83 Blood Pressure Mean [Right Arm] 85 Blood Pressure Source Blood Pressure Source [Right Arm] Automatic Cuff Blood Pressure Position Blood Pressure Position [Right Arm] Supine 02 Sat by Pulse Oximetry 99 100 99 Oxygen Delivery Method Room Air Room Air 08/16/23 17:30 08/16/23 18:41 Temperature 98.7 F Temperature Source Oral Pulse Rate 73 86 Pulse Rate [Right Radial] Respiratory Rate 16 20 Blood Pressure 122/78 126/65 Blood Pressure [Right Arm] Blood Pressure Mean 89 Blood Pressure Mean [Right Arm] Blood Pressure Source Automatic Cuff Blood Pressure Source [Right Arm] Blood Pressure Position Supine Blood Pressure Position [Right Arm] 02 Sat by Pulse Oximetry 99 Oxygen Delivery Method Room Air Lab Data Lab Results 08/16/23 16:30: WBC 6.4, RBC 3.93 L, Hgb 12.0 L, Hct 38.0, MCV 96.7, MCH 30.5, M CHC 31.5 L, RDW 14.4, Plt Count 263, MPV 7.7, Neut % (Auto) 78.1, Lymph % (Auto) 13.6, [place] % (Auto) 4.4, Eos % (Auto) 2.9, Baso % (Auto) 1.0, Neut # (Auto) 5.0, Lymph # (Auto) 0.9, [place] # (Auto) 0.3, Eos # (Auto) 0.2, Baso # (Auto) 0.1, S odium 130 L, Potassium 3.9, Chloride 98, Carbon Dioxide 27, Anion Gap 8.9, BUN 13, Creatinine 0.90, Estimated Creat Clear 73, Estimated GFR 62, Est GFR ( Amer) 75, Glucose 117 H, Lactate 0.6 L, Calcium 8.8, Magnesium 1.8, Troponin I < 0.01, NT-Pro-B Natriuret Pep 758 H, Lipase 30 Orders (Tests/Meds): ED MEDICATIONS Discontinued Medications Generic Name Dose Route Start Last Admin Trade Name Freq PRN Reason Stop Dose Admin Acetaminophen 1,000 mg 08/16/23 17:22 08/16/23 17:34 Acetaminophen 1,000mg/100ml Vial IV 08/16/23 17:23 1,000 mg ONCE ONE Administration Belladonna Alkaloids 60 ml 08/16/23 17:22 08/16/23 17:34 Belladonna Alkaloids 60 Ml Ml PO 08/16/23 17:23 60 ml ONCE ONE Administration Lactated Ringer's 1,000 mls @ 999 mls/hr 08/16/23 17:22 08/16/23 17:35 Lactated Ringer's 1000 Ml Bag IV 08/16/23 18:22 999 mls/hr .Q1H1M ONE Administration Iopamidol 75 ml 08/16/23 17:58 08/16/23 18:01 Iopamidol-370 (76%);100ml Bottle IV 08/16/23 17:59 75 ml ONCE ONE Administration Ketorolac Tromethamine 15 mg 08/16/23 17:22 08/16/23 17:34 Ketorolac 30mg/Ml Vial IV 08/16/23 17:23 15 mg ONCE ONE Administration Ondansetron HCl 4 mg 08/16/23 17:22 08/16/23 17:35 Ondansetron 4mg Odt SL 08/16/23 17:23 4 mg ONCE ONE Administration Sodium Chloride 10 ml 08/16/23 16:29 Sodium Chloride 0.9% 10ml Flush Syringe IV 09/15/23 16:28 NEEDED PRN Maintain IV Site Sodium Chloride 10 ml 08/16/23 17:58 08/16/23 18:01 Sodium Chloride 0.9% 10ml Syr (Rad Only) IV 08/16/23 17:59 10 ml ONCE ONE Administration Sodium Chloride 50 ml 08/16/23 17:58 08/16/23 18:01 0.9 % Sodium Chloride 50 Ml Vial IV 08/16/23 17:59 50 ml ONCE ONE Administration ORDERS Category Date Time Status CT abdomen pelvis w con Stat Cat Scan 08/16/23 17:[address] angio chest PE protocol Stat Cat Scan 08/16/23 17:23 Completed XR chest portable Stat Exams 08/16/23 16:29 Completed Basic Metabolic Panel Stat Lab 08/16/23 16:30 Completed Complete Blood Count Auto Diff Stat Lab 08/16/23 16:30 Completed Lactic Acid Stat Lab 08/16/23 16:30 Completed Lipase Stat Lab 08/16/23 16:30 Completed Magnesium Stat Lab 08/16/23 16:30 Completed NT Pro Brain Natriuretic Pep. Stat Lab 08/16/23 16:30 Completed Troponin I Stat Lab 08/16/23 16:30 Completed Medical Decision Narrative: In summary patient is a 67-year-old female who presents to the emergency department for evaluation of abdominal pain. Patient is dynamically stable upon arrival, afebrile. Physical exam is remarkable for mild diffuse abdominal pain with normal breath sounds normal bowel sounds and no radiation no masses palpated. Patient is status post right AKA with significant left lower extremity lymphedema that is at its normal chronic baseline. Differential diagnosis includes GERD versus gastroparesis versus hiatal hernia versus ulcer. Patient is post cholecystectomy. Initial workup will be conducted with hematologic labs CT scan chest abdomen pelvis. Initial interventions include IV fluids Toradol Tylenol GI cocktail. Initial workup reviewed by me shows a normal hematologic workup that is nonactionable and my review of her CT scans show a significant hiatal hernia with partial intrathoracic stomach and a torturous esophagus, large stool burden but no other acute processes with radiology read pending. Upon repeat evaluation patient reports resolution of her discomfort after the GI cocktail. Patient is also has no problems with passing flatus.. Given this patient is appropriate for discharge with follow-up with her PCP, referral to Dr. Jose R Patel for evaluation of repair of her hiatal hernia. Patient to continue following up with gastroenterology as scheduled. EKG personally interpreted by me. Sinus rhythm with occasional PVCs. Rate of 81 bpm. No ischemic changes. I was consulted by the JJ, and we discussed the complexity of the problems being addressed. I approved the treatment and management plan for this patient's care in the Emergency Department, thus performing a substantive portion of the medical decision making. Rolando Myles, DO Critical Care <ZECHARIAH Carey - Last Filed: 08/16/23 18:47> Critical Care Time Critical Care Time: No
[2023-08-16 16:28] VITALS: BMI 30.7
--- NOTE | 2023-08-16 16:29 | XR_ITS ---
PROCEDURE INFORMATION: Exam: XR Chest Exam date and time: 08/16/2023 4:29 PM Age: 67 years old Clinical indication: Pain; Other: Epigastric; Additional info: Epi gastric pain TECHNIQUE: Imaging protocol: Radiologic exam of the chest. Views: 1 view. COMPARISON: CR XR CHEST PORTABLE PICC PLAC 12/16/2020 3:14 PM FINDINGS: Lungs: No evidence of acute pulmonary disease or infiltrates Pleural spaces: No large effusion or pneumothorax. Heart/Mediastinum: There is a large hiatal hernia. Stable cardiac and mediastinal contours. Vasculature: There are calcifications of the aortic arch. Bones/joints: No evidence of acute osseous abnormalities within the visualized portions of the thoracic spine and ribs. Osseous structures appear appropriate for patient age. IMPRESSION: 1. No dense parenchymal consolidation, pleural effusion, or pneumothorax. 2. Large hiatal hernia.
--- NOTE | 2023-08-16 16:30 | ECG_ITS ---
APPROVED REPORT Exam: Resting ECG HR:81 bpm ECG Measurements Heart Rate 81 AXES NV 183 P 51 QRSd 82 QRS -2 QT 365 T 63 QTc 402 Conclusion SINUS RHYTHM WITH OCCASIONAL VENTRICULAR PREMATURE COMPLEXES BORDERLINE ECG UNCONFIRMED REPORT Electronically signed by : RACHANA TORRES, 08/16/2023 23:49:50
[2023-08-16 16:31] VITALS: BP 104/67; PULSE 85; O2SAT 100
--- NOTE | 2023-08-16 16:33 | PC.NURSE ---
RAD in room
--- NOTE | 2023-08-16 16:34 | PC.NURSE ---
RAD at BS
[2023-08-16 16:47] LABS: Chloride 98 mmol/L (98-107); Sodium 130 mmol/L (136-145)
[2023-08-16 16:48] LABS: Potassium 3.9 mmoL/L (3.5-5.1)
[2023-08-16 16:50] LABS: Blood Urea Nitrogen 13 mg/dl (7-17); Creatinine Clearance Estimated 73 mL/min (50-200); Estimated Glomerular Filt Rate 62 ml/min (>60); GFR (African American) 75 ML/MIN (>60); Lipase 30 U/L (23-300)
[2023-08-16 16:51] LABS: Anion Gap 8.9 mEq/L (5-15); Calcium 8.8 mg/dl (8.4-10.2); Carbon Dioxide 27 mmol/L (22.0-30.0); Glucose 117 mg/dl (74-100)
[2023-08-16 16:54] LABS: Lactic Acid 0.6 mmol/L (0.7-2.1)
[2023-08-16 16:55] LABS: Basophils # 0.1 K/mm3 (0-0.2); Eosinophils # 0.2 K/mm3 (0.0-0.4); Eosinophils % 2.9 % (0.1-12.0); Lymphocytes # 0.9 K/mm3 (0.7-4.5); Lymphocytes % 13.6 % (10-50); Mean Corpuscular HGB Conc 31.5 g/dL (31.8-35.4); Mean Corpuscular Hemoglobin 30.5 pg (27.0-31.2); Mean Corpuscular Volume 96.7 fl (81-99); Mean Platelet Volume 7.7 fl (7.4-10.4); Monocytes # 0.3 K/mm3 (0.1-1.0); Monocytes % 4.4 % (1.7-9.3); Neutrophils % 78.1 % (37.0-80.0); Platelet Count 263 K/mm3 (142-424); Red Blood Count 3.93 M/mm3 (4.20-5.40); Red Cell Distribution Width 14.4 % (11.5-17.5); White Blood Count 6.4 K/mm3 (4.8-10.8)
[2023-08-16 17:00] VITALS: BP 112/67; PULSE 77; RESP 16; O2SAT 99
[2023-08-16 17:01] LABS: NT Pro Brain Natriuretic Pep. 758 pg/mL (0-125)
[2023-08-16 17:16] LABS: Troponin I < 0.01 ng/ml (0.00-0.034)
--- NOTE | 2023-08-16 17:23 | CT_ITS ---
PROCEDURE INFORMATION: Exam: CTA Chest With Contrast Exam date and time: 08/16/2023 5:54 PM Age: 67 years old Clinical indication: Pain; Other: Epigastric; Additional info: Acute epigastric pain TECHNIQUE: Imaging protocol: Computed tomographic angiography of the chest with contrast. Exam focused on the arteries. 3D rendering (Not supervised by radiologist): MIP and/or 3D reconstructed images were created by the technologist. Radiation optimization: All CT scans at this facility use at least one of these dose optimization techniques: automated exposure control; mA and/or kV adjustment per patient size (includes targeted exams where dose is matched to clinical indication); or iterative reconstruction. Contrast material: ISOVUE 370; Contrast volume: 75 ml; Contrast route: INTRAVENOUS (IV); COMPARISON: 1. CT CHEST WO/W CON 06/28/2020 10:55 AM 2. CR XR CHEST PORTABLE 08/16/2023 4:29 PM 3. CR XR CHEST PORTABLE PICC PLAC 12/16/2020 3:14 PM FINDINGS: Pulmonary arteries: There is fair opacification of the pulmonary arterial tree. No central pulmonary arterial filling defect is seen. Aorta: There is atherosclerotic disease of the visualized aorta and its major branch vessels. Other arteries: Subsegmental vessels are not well evaluated due to technical factors. Lungs: Scattered areas of bronchial wall thickening which are likely chronic inflammatory. A few areas of subpleural reticulation are noted, nonspecific. There are multiple bilateral subsolid nodules such as a 8 mm right upper lobe nodule (image 32 series 5), three-month follow-up study is suggested. Pleural spaces: Unremarkable. No pneumothorax. No pleural effusion. Heart: Unremarkable. No cardiomegaly. No pericardial effusion. Lymph nodes: Unremarkable. No enlarged lymph nodes. Diaphragm: There is a large hiatal hernia. Intraperitoneal space: Please see the dedicated interpretation of abdomen and pelvis for findings in that region. Bones/joints: There is diffuse degenerative disease of the visualized osseous structures. Soft tissues: Unremarkable. IMPRESSION: 1. There is a large hiatal hernia. 2. No central pulmonary arterial filling defect is seen. Subsegmental vessels are not well evaluated due to technical factors. 3. Please see the dedicated interpretation of abdomen and pelvis for findings in that region. 4. There are multiple bilateral subsolid nodules such as a 8 mm right upper lobe nodule (image 32 series 5), three-month follow-up study is suggested.
--- NOTE | 2023-08-16 17:23 | CT_ITS ---
PROCEDURE INFORMATION: Exam: CT Abdomen And Pelvis With Contrast Exam date and time: 08/16/2023 5:54 PM Age: 67 years old Clinical indication: Abdominal pain; Epigastric; Additional info: Acute epigastric pain TECHNIQUE: Imaging protocol: Computed tomography of the abdomen and pelvis with contrast. Radiation optimization: All CT scans at this facility use at least one of these dose optimization techniques: automated exposure control; mA and/or kV adjustment per patient size (includes targeted exams where dose is matched to clinical indication); or iterative reconstruction. Contrast material: ISOVUE; Contrast volume: 75 ml; Contrast route: IV; COMPARISON: 1. MR ABDOMEN WO CON 05/20/2022 3:[address] ABDOMEN PELVIS W CON 05/20/2022 1:[address] ABDOMEN PELVIS WO CON 06/27/2020 3:49 PM FINDINGS: Diaphragm: Large hiatal hernia is noted. Liver: Normal. Gallbladder and bile ducts: The patient is status post cholecystectomy. There is air within the bile ducts compatible with pneumobilia. Pancreas: There is fatty replacement of the pancreas. Spleen: Normal. Adrenal glands: The adrenal glands appear normal. Kidneys and ureters: The kidneys demonstrate thin cortices compatible with atrophy. Stomach and bowel: There is large volume stool throughout the colon. Appendix: No evidence of appendicitis. Intraperitoneal space: Unremarkable. Vasculature: There is atherosclerotic disease of the visualized aorta and its major branch vessels. Lymph nodes: No lymphadenopathy. Urinary bladder: Unremarkable as visualized. Reproductive: The patient has undergone prior hysterectomy. Bones/joints: There is surgical hardware within the lumbar spine. There is diffuse degenerative disease of the visualized osseous structures. Soft tissues: There are calcifications within the buttocks which most likely reflect injection granulomas. Other findings: Please see the dedicated interpretation of the thorax for findings in that region. IMPRESSION: 1. Large hiatal hernia is noted. 2. Please see the dedicated interpretation of the thorax for findings in that region.
[2023-08-16 17:30] VITALS: BP 122/78; PULSE 73; RESP 16; O2SAT 99
[2023-08-16] MEDS: KETOROLAC 30MG/ML VIAL 15 MG IV (17:34)
[2023-08-16] MEDS: ACETAMINOPHEN 1,000MG/100ML VIAL 1000 MG IV (17:34)
[2023-08-16] MEDS: BELLADONNA ALKALOIDS 60 ML ML PO (17:34)
--- NOTE | 2023-08-16 17:34 | PC.NURSE ---
pt to CT
[2023-08-16] MEDS: LACTATED RINGERS 1000ML 1,000 ML 999 ML IV (17:35)
[2023-08-16] MEDS: ONDANSETRON 4MG ODT 4 MG SL (17:35)
[2023-08-16 17:39] LABS: Magnesium 1.8 mg/dl (1.6-2.3)
[2023-08-16] MEDS: 0.9 % SODIUM CHLORIDE 50 ML VIAL IV (18:01)
[2023-08-16] MEDS: IOPAMIDOL-370 (76%);100ML BOTTLE 75 ML IV (18:01)
[2023-08-16] MEDS: SODIUM CHLORIDE 0.9% 10ML SYR (RAD ONLY) 10 ML IV (18:01)
--- NOTE | 2023-08-16 18:08 | PC.NURSE ---
Pt returned to room from RAD
[2023-08-16 18:41] VITALS: BP 126/65; PULSE 86; RESP 20; TEMP 37.1; O2SAT 97
== END 2023-08-16 18:47 | disposition home or self-care (01) ==
PROVIDERS: Physician Assistant; Emergency Provider Emergency Medicine; PCP Family Medicine
DX: E87.1 Hypo-osmolality and hyponatremia (principal); R10.84 Generalized abdominal pain; K44.9 Diaphragmatic hernia without obstruction or gangrene; Z89.511 Acquired absence of right leg below knee; R60.0 Localized edema
CPT/HCPCS: 71045; 71275; 74177; 80048; 83605; 83690; 83735; 83880; 84484; 85025; 93005; 96361; 96374; 96375; 99285; J0131; Q9967

== ENCOUNTER 2024-03-11 09:09 | Outpatient (CLI) | payer BC, MEDICARE, SELFPAY ==
--- OUTSIDE RECORDS SUMMARY | 2024-03-11 09:13 | XMS_ITS | Encounter Summary ---
Author Organization [employer] [facility] Address [address] [place] [address] Care Team Providers Care Analytics Lead Name Role Phone Juan José Kendall MD Primary Care Provider + [phone] Juan José Kendall MD Unavailable [phone] Encounter Details Date Type Department Care Team (Late st Contact Info) Description 02/01/2019 Transcribed Document [facility] [place] [facility] [place] [address] ProviderLaurie MD [address], [place] [address] Social History Tobacco Use Types Packs/Day Years Used Date Smoking Tobacco: Never Assessed Comments Unknown Sex and Gender Information Value Date Recorded Sex Assigned at Not on file Legal Sex Female 2:23 PM CDT Gender Identity Not on file Sexual Orientation Not on file documented as of this encounter Miscellaneous Notes * Cerner Conversion Note - Laurie ProviderMD - 02/01/2019 4:27 PM CDT On Going Discharge Planning Entered On: 02/01/2019 16:27 EDT Performed On: 02/01/2019 16:27 EDT by JAYE MAYFIELD Care Management-Early Intervention School Psychologist Care Management Progress Note Discharge Arrangements : Patient Post-Acute Information Patient Name: TRUDI [place] Gender: Female : [birth year] Age: 63 Years No Post-Acute Placement(s) Listed No Post-Acute Service(s) Listed No [place] Referral(s) Listed Discharge Options Discussed with Patient : DME, Home Health, Short term rehabilitation Designation of Choice Signed : Yes Patient Offered Choice/Affiliations Explained : Yes List/Info Provided Pt/Fam/Support Person : Home care Were Referrals Sent to Post Acute Providers : Yes JAYE MAYFIELD Care Management-Early Intervention School Psychologist - 02/01/2019 16:27 EDT Narrative Progress Note Narrative Progress Note : Patient is current with [facility] , she has 24 hour caregivers and spouse that cares for her at home. She as well as spouse decline SNF JAYE MAYFIELD Care Management-Early Intervention School Psychologist - 02/01/2019 16:27 EDT Electronically signed by [facility] Conversion Shredding Machine Knife Changer Cerner at 07/24/2022 3:56 PM CDT documented in this encounter Plan of Treatment Not on file documented as of this encounter Visit Diagnoses Not on filedocumented in this encounter Care Teams Analytics Lead Relationship Specialty Start Date End Date Juan José Kendall MD [address] [facility] [address] [place] [id number] PCP - General Family Medicine 12/25/22 Juan José Kendall MD [address] [facility] [address] [place] [address] Referring Physician Family Medicine 12/25/22 documented as of this encounter
--- OUTSIDE RECORDS SUMMARY | 2024-03-11 09:13 | XMS_ITS | Encounter Summary ---
Author Organization [facility] Address [address] [place] [address] Care Team Providers Care Inside Sales Name Role Phone Unavailable Primary Care Provider Unavailabl e Encounter Details Date Type Department Care Team (Late st Contact Info) Description 02/01/2019 Historic Encounter [address] [phone] ProviderMatthew Historical Social History Tobacco Use Types Packs/Day Years Used Date Smoking Tobacco: Never Assessed Comments Unknown Sex and Gender Information Value Date Recorded Sex Assigned at Not on file Legal Sex Female 2:23 PM CDT Gender Identity Not on file Sexual Orientation Not on file documented as of this encounter Plan of Treatment Not on file documented as of this encounter Procedures Procedure Name Priority Date/Time Associated Diagnosis Comments ANTIBODY SCREEN ([place] BKR) Routine 02/01/2019 6:25 AM EDT documented in this encounter Results * Antibody Screen (02/01/2019 6:25 AM EDT) Method PeG 02/01/2019 11:13 AM EDT SC1IS 0 02/01/2019 11:13 AM EDT SC2IS 0 02/01/2019 11:13 AM EDT SC3IS NT 02/01/2019 11:13 AM EDT SC137 0 02/01/2019 11:13 AM EDT SC237 0 02/01/2019 11:13 AM EDT SC337 NT 02/01/2019 11:13 AM EDT SC1 AHG 0 02/01/2019 11:13 AM EDT SC2 AHG 0 02/01/2019 11:13 AM EDT SC3 AHG NT 02/01/2019 11:13 AM EDT SC1CC 2+ 02/01/2019 11:13 AM EDT SC2CC 2+ 02/01/2019 11:13 AM EDT SC3CC NT 02/01/2019 11:13 AM EDT Antibody Screen (Tube) Negative ABSC 02/01/2019 11:13 AM EDT Blood 02/01/2019 6:25 AM EDT 02/01/2019 10:30 AM EDT [facility] Historical Provider [facility] BLOOD BANK TEST ORD ERABLES Final Result [facility] [address] [phone] documented in this encounter Visit Diagnoses Not on filedocumented in this encounter
--- OUTSIDE RECORDS SUMMARY | 2024-03-11 09:13 | XMS_ITS | Encounter Summary ---
Author Organization [facility] Address [address] [place] [address] Care Team Providers Care Lawn Technician Name Role Phone Unavailable Primary Care Provider Unavailabl e Encounter Details Date Type Department Care Team (Late st Contact Info) Description 02/01/2019 Historic Encounter [address] [address] ProviderMatthew Historical Social History Tobacco [...] Procedure Name Priority Date/Time Associated Diagnosis Comments ABO/RH ([place] BKR) Routine 02/01/2019 6:25 AM EDT documented in this encounter Results * ABO/Rh (02/01/2019 6:25 AM EDT) Hx Check O POS 02/01/2019 11: 13 AM EDT Method Tube 02/01/2019 11: 13 AM EDT Anti-A 0 02/01/2019 11: 13 AM EDT Anti-B 0 02/01/2019 11: 13 AM EDT Anti-D 4+ 02/01/2019 11: 13 AM EDT Con NT 02/01/2019 11: 13 AM EDT A1 4+ 02/01/2019 11: 13 AM EDT B 4+ 02/01/2019 11: 13 AM EDT ABO/Rh O POS 02/01/2019 11: 13 AM EDT Blood 02/01/2019 6:25 AM EDT 02/01/2019 10:30 AM EDT [facility] Historical Provider [facility] BLOOD BANK TEST ORD ERABLES Final Result [facility] [address] [phone] documented in this encounter Visit Diagnoses Not on filedocumented in this encounter
--- OUTSIDE RECORDS SUMMARY | 2024-03-11 09:13 | XMS_ITS | Encounter Summary ---
Author Organization [employer] [facility] Address [address] [place] [address] Care Team Providers Care Bonded Structures Repairer Name Role Phone Juan José Kendall MD Primary Care Provider +- [phone] Juan José Kendall MD Unavailable [phone] Encounter Details Date Type Department Care Team (Late st Contact Info) Description 02/02/2019 Transcribed Document [facility] [place] [facility] [place] [address] ProviderLaurie MD [address] [place] [id number] Social History Tobacco Use Types Packs/Day Years Used Date Smoking Tobacco: Never Assessed Comments Unknown Sex and Gender Information Value Date Recorded Sex Assigned at Not on file Legal Sex Female 2:23 PM CDT Gender Identity Not on file Sexual Orientation Not on file documented as of this encounter Miscellaneous Notes * Cerner Conversion Note - Laurie ProviderMD - 02/02/2019 2:00 AM CDT Pain Assessment Entered On: 02/02/2019 4:59 EDT Performed On: 02/02/2019 4:18 EDT by Bell Gutierrez, RN Intervention Information: acetaminophen Performed by Lenora Hong RN on 02/02/2019 03:18:00 EDT acetaminophen,500mg Oral Pain Assessment Pain Assessment : Follow-up assessment Pain Scale Goal : 4 Pain Scale Used : 0-10 Scale Pain Improved by Intervention : Yes Bell Guteirrez RN - 02/02/2019 4:59 EDT Pain Scale Intensity : 4 Bell Gutierrez RN - 02/02/2019 4:59 EDT Image 4 - Images currently included in the form version of this document have not been included in the text rendition version of the form. documented in this encounter Plan of Treatment Not on file documented as of this encounter Visit Diagnoses Not on filedocumented in this encounter Care Teams Bonded Structures Repairer Relationship Specialty Start Date End Date Juan José Kendall MD [address] [facility] [address] [place] [phone] PCP - General Family Medicine 12/25/22 Juan José Kendall MD [address] [place] [address] [address] [place] [phone] Referring Physician Family Medicine 12/25/22 documented as of this encounter
--- OUTSIDE RECORDS SUMMARY | 2024-03-11 09:13 | XMS_ITS | Encounter Summary ---
Author Organization [employer] [facility] Address [address] [facility] [place] [address] Care Team Providers Care Manager Of Broadcast Content Name Role Phone Unavailable Primary Care Provider Unavailabl e Encounter Details Date Type Department Care Team (Late st Contact Info) Description 02/02/2019 Historic Encounter [address] [address] ProviderMatthew Historical Social History Tobacco [...] Procedure Name Priority Date/Time Associated Diagnosis Comments HEMOGLOBIN AND HEMATOCRIT Routine 02/02/2019 5:43 AM EDT documented in this encounter Results * (ABNORMAL) Hemoglobin and hematocrit (02/02/2019 5:43 AM EDT) Hgb 9.5(L) 11.2 - 15.7 Gram/dL 02/02/2019 9:55 AM EDT Comment: No Hemoglobin reference ranges defined for patients with an ? Unknown? gender. Please apply existing Male/Female reference ranges as clinically indicated. Assay ?HGB Male ??0 ??Days ??1 ??Months ??12 23 Female ??0 ??Days ??1 ??Months ??12 23 Male ??1 ??Months ??2 ??Years ??10 14 Female ??1 ??Months ??2 ??Years ??10 14 Male ??2 ??Years ??12 ??Years ??11 16 Female ??2 ??Years ??12 ??Years ??11 16 Male ??12 ??Years ??150 ??Years ??13.7 17.5 Female ??12 ??Years ??150 ??Years ??11.2 15.7 Hct 30.3(L) 34.1 - 44.9 % 02/02/2019 9:55 AM EDT Comment: No Hematocrit reference ranges defined for patients with an ? Unknown? gender. Please apply existing Male/Female reference ranges as clinically indicated. Assay ?HCT Male ??0 ??Minutes ??1 ??Months ??42 66 Female ??0 ??Minutes ??1 ??Months ??42 66 Male ??1 ??Months ??2 ??Years ??31 42 Female ??1 ??Months ??2 ??Years ??31 42 Male ??2 ??Years ??12 ??Years ??33 46 Female ??2 ??Years ??12 ??Years ??33 46 Male ??12 ??Years ??150 ??Years ??40.1 51 Female ??12 ??Years ??150 ??Years ??34.1 44.9 Blood 02/02/2019 5:43 AM EDT 02/02/2019 9:49 AM EDT [facility] Historical Provider LAB BLOOD ORDERABLES Fi nal Result [facility] [address] [phone] documented in this encounter Visit Diagnoses Not on filedocumented in this encounter
--- OUTSIDE RECORDS SUMMARY | 2024-03-11 09:13 | XMS_ITS | Encounter Summary ---
Author Organization [employer] Address [address] [place] [address] Care Team Providers Care Cigarette Machine Filler Name Role Phone Juan José Kendall MD Primary Care Provider +- [phone] Juan José Kendall MD Unavailable [phone] Encounter Details Date Type Department Care Team (Late st Contact Info) Description 02/02/2019 Transcribed Document [facility] [place] [facility] [place] [address] ProviderLaurie MD [address] [place] [id number] Social History Tobacco Use Types Packs/Day Years Used Date Smoking Tobacco: Never Assessed Comments Unknown Sex and Gender Information Value Date Recorded Sex Assigned at Not on file Legal Sex Female 2:23 PM CDT Gender Identity Not on file Sexual Orientation Not on file documented as of this encounter Miscellaneous Notes * Cerner Conversion Note - Historical ProviderMD - 02/02/2019 3:41 PM CDT Discharge Summary, PT Entered On: 02/02/2019 15:43 EDT Performed On: 02/02/2019 15:41 EDT by VINNIE LUI PTA Discharge Summary Reason for Discharge : Discharged from hospital VINNIE LUI PTA - 02/02/2019 15:41 EDT Discharge Summary Comment, PT : Patient will discharge home follow up from [facility] on 02/02/19 having met 0/2 acute therapy goals. Patient will have assistance at home from family members as needed. At time of discharge patient was Hilary with bed mobility and Hilary x2 for transfers with RWx. Patient would continue to benefit from skilled PT services to improve LE strength, functional mobility, and promote return to PLOF. Co-signed by Linda Bautista, PT. LINDA BAUTISTA, PT - 02/04/2019 11:30 EDT Group Home Goals Other PT LTG Grid Goal #1 Goal #2 Other : Patient will complete bed to chair transfer with RW and CGA/min assist x 1 person. Patient will complete supine to sit with leg [id number] armor crewman and CGA. Date to Meet : 02/03/2019 EDT 02/03/2019 EDT Goal Status : Progressing, continue Progressing, continue VINNIE LUI, PACK PULLER - 02/02/2019 15:41 EDT VINNIE LUI, JACOB - 02/02/2019 15:41 EDT Electronically signed by [facility], [facility] Conversion Cloth Colorer Cerner at 07/24/2022 3:39 PM CDT documented in this encounter Plan of Treatment Not on file documented as of this encounter Visit Diagnoses Not on filedocumented in this encounter Care Teams Cigarette Machine Filler Relationship Specialty Start Date End Date Juan José Kendall MD [address] [address] [place] [address] PCP - General Family Medicine 12/25/22 Juan José Kendall MD [address] [facility] [address] [place] [address] Referring Physician Family Medicine 12/25/22 documented as of this encounter
--- OUTSIDE RECORDS SUMMARY | 2024-03-11 09:13 | XMS_ITS | Referral Summary ---
Author Organization [employer] Address [address] [place] [address] Care Team Providers Care Consulting Technical Manager Name Role Phone Juan José Kendall MD Primary Care Provider + [phone] Juan José Kendall MD Unavailable [phone] Social History Tobacco Use Types Packs/Day Years Used Date Smoking Tobacco: Never Assessed Comments Unknown Sex and Gender Information Value Date Recorded Sex Assigned at Not on file Legal Sex Female 2:23 PM CDT Gender Identity Not on file Sexual Orientation Not on file Plan of Treatment Not on file Insurance BLUE CROSS/BLUE SHIELD MEDICARE PART A B Care Teams Consulting Technical Manager Relationship Specialty Start Date End Date Juan José Kendall MD [address] [facility] [address] [place] [address] PCP - General Family Medicine 12/25/22 Juan José Kendall MD [address] [facility] [address] [place] [address] Referring Physician Family Medicine 12/25/22
--- OUTSIDE RECORDS SUMMARY | 2024-03-11 09:13 | XMS_ITS | Clinical Summary ---
Author Organization [employer] Address [address] [place] [address] Care Team Providers Care Overweaver Name Role Phone Juan José Kendall MD Primary Care Provider [phone] Juan José Kendall MD Unavailable [phone] Social History Tobacco Use Types Packs/Day Years Used Date Smoking Tobacco: Never Assessed Comments Unknown Sex and Gender Information Value Date Recorded Sex Assigned at Not on file Legal Sex Female 2:23 PM CDT Gender Identity Not on file Sexual Orientation Not on file Plan of Treatment Health Maintenance Due Date Last Done Comments CT Colonography 1954 Colonoscopy 1954 Colorectal Cancer Screening 1954 DXA SCAN 1954 FOBT/FIT 1954 Fit-DNA (Cologuard) 1954 Sigmoidoscopy 1954 Depression Screening (12+) 1966 Tobacco Cessation Counseling and Screening (12+) 1966 DTAP/TDAP/TD VACCINES (1 - Tdap) 1973 Breast Cancer Screening 1994 Shingles Vaccine (Zoster) (2 of 3) 10/29/20172017 Pneumococcal 65+ years (2 of 2 - PPSV23 or PCV20) 11/09/2020 11/10/2019 Falls Risk Screening 04/05/2023 COVID-19 VACCINE (3 - season) 2023, 07/15/2020 Influenza Vaccine (#1) 2023 02/09/2020 Respiratory Syncytial Virus (RSV) Adult or (1 - 1-dose 75+ series) 2029 Insurance BLUE CROSS/BLUE SHIELD MEDICARE PART A B Care Teams Overweaver Relationship Specialty Start Date End Date Juan José Kendall MD [address] [facility] [address] [place] [address] PCP - General Family Medicine 12/25/22 Juan José Kendall MD [address] [facility] [address] [place] [address] Referring Physician Family Medicine 12/25/22
--- OUTSIDE RECORDS SUMMARY | 2024-03-11 09:13 | XMS_ITS | Encounter Summary ---
Author Organization [employer] Address [address] [place] [address] Care Team Providers Care Cloth Measurer Machine Name Role Phone Juan José Kendall MD Primary Care Provider [phone]- [phone] Juan José Kendall MD Unavailable [phone] Encounter Details Date Type Department Care Team (Late st Contact Info) Description 02/01/2019 Transcribed Document [facility] [place] [address] [place] [address] ProviderLaurie MD [address] [place], [place] [id number] Social History Tobacco Use Types Packs/Day Years Used Date Smoking Tobacco: Never Assessed Comments Unknown Sex and Gender Information Value Date Recorded Sex Assigned at Not on file Legal Sex Female 2:23 PM CDT Gender Identity Not on file Sexual Orientation Not on file documented as of this encounter Miscellaneous Notes * Cerner Conversion Note - Laurie ProviderMD - 02/01/2019 5:01 PM CDT Pain Assessment Entered On: 02/02/2019 0:54 EDT Performed On: 02/01/2019 19:02 EDT by Lenora Hong RN Intervention Information: HYDROmorphone Performed by Deborah Martinez RN on 02/01/2019 18:02:00 EDT HYDROmorphone,4mg Oral,Pain (Severe 7-10) Pain Assessment Pain Assessment : Follow-up assessment Pain Scale Goal : 4 Pain Scale Used : 0-10 Scale Lenora Hong RN - 02/02/2019 0:54 EDT Pain Scale Intensity : 3 Lenora Hong RN - 02/02/2019 0:54 EDT Image 4 - Images currently included in the form version of this document have not been included in the text rendition version of the form. documented in this encounter Plan of Treatment Not on file documented as of this encounter Visit Diagnoses Not on filedocumented in this encounter Care Teams Cloth Measurer Machine Relationship Specialty Start Date End Date Juan José Kendall MD [address] [facility] [address] [facility] [address] PCP - General Family Medicine 12/25/22 Juan José Kendall MD [address] [facility] [address] [place] [address] Referring Physician Family Medicine 12/25/22 documented as of this encounter
--- OUTSIDE RECORDS SUMMARY | 2024-03-11 09:13 | XMS_ITS | Encounter Summary ---
Author Organization [employer] Address [address] [place] [address] Care Team Providers Care Roof Panel Hanger Name Role Phone Juan José Kendall MD Primary Care Provider +- [phone] Juan José Kendall MD Unavailable [phone] Encounter Details Date Type Department Care Team (Late st Contact Info) Description 02/01/2019 Transcribed Document [facility] [place] [address] [place] [address] ProviderLaurie MD [address] [place], [place] [address] Social History Tobacco Use Types Packs/Day Years Used Date Smoking Tobacco: Never Assessed Comments Unknown Sex and Gender Information Value Date Recorded Sex Assigned at Not on file Legal Sex Female 2:23 PM CDT Gender Identity Not on file Sexual Orientation Not on file documented as of this encounter Miscellaneous Notes * Cerner Conversion Note - Laurie ProviderMD - 02/01/2019 3:03 PM CDT UM Authorization Entered On: 02/01/2019 15:06 EDT Performed On: 02/01/2019 15:03 EDT by ROBERT GRIFFIN RN-Utilization Review Primary Insurance Authorization Authorization and Policy Numbers : Insurance 1 Health Plan: ANTHEM HMOPPO Policy Number: [id number] Authorization Number: NPCR Insurance 2 Health Plan: MEDICARE Policy Number: [id number] Authorization Number: Insurance Primary Name : [facility] Authorization Status-Primary : Admit approved Authorization Fax Number-Primary : [phone] to notify of discharge date Authorization Number-Primary : [id number] Number of Days Authorized-Primary : 6 Day(s) Authorized Service Begin Date-Primary : 02/01/2019 EDT Authorized Service End Date-Primary : 02/07/2019 EST Authorization Comments-Primary : Spoke with Vickie at [facility]. Admit approved for 7 days (02/01-02/07/19) with no clinicals needed at this time. If pt stays longer than 02/07/19, fax clinicals to . Fax discharge summary/date to . Historical Authorization Comments-Primary : No Authorization Comments Found ROBERT GRIFFIN RN-Utilization Review - 02/01/2019 15:03 EDT Electronically signed by Aleks [facility] Conversion Renovation Plant Supervisor Cerner at 07/24/2022 3:46 PM CDT documented in this encounter Plan of Treatment Not on file documented as of this encounter Visit Diagnoses Not on filedocumented in this encounter Care Teams Roof Panel Hanger Relationship Specialty Start Date End Date Juan José Kendall MD [address] [facility] [address] [place] [address] PCP - General Family Medicine 12/25/22 Juan José Kendall MD [address] [facility] [address] [place] [address] Referring Physician Family Medicine 12/25/22 documented as of this encounter
--- OUTSIDE RECORDS SUMMARY | 2024-03-11 09:13 | XMS_ITS | Encounter Summary ---
Author Organization [employer] Address [address] [place] [address] Care Team Providers Care Advertising Assistant Manager Name Role Phone Juan José Kendall MD Primary Care Provider +- [phone] Juan José Kendall MD Unavailable [phone] Encounter Details Date Type Department Care Team (Late st Contact Info) Description 02/02/[address] [facility] [place] [facility] [place] [address] ProviderLaurie MD [address] [place] [address] Social History Tobacco Use Types Packs/Day Years Used Date Smoking Tobacco: Never Assessed Comments Unknown Sex and Gender Information Value Date Recorded Sex Assigned at Not on file Legal Sex Female 2:23 PM CDT Gender Identity Not on file Sexual Orientation Not on file documented as of this encounter Miscellaneous Notes * Cerner Conversion Note - Laurie Garcia MD - 02/02/2019 3:28 PM CDT Nursing Discharge Summary Entered On: 02/02/2019 15:29 EDT Performed On: 02/02/2019 15:28 EDT by Deborah Martinez RN Discharge Documentation Patient Disposition, General : Discharge Discharge To : Home with ambulatory/outpatient follow-up Mode Of Departure, General Discharge : Private vehicle, Wheelchair Accompanied By, Discharge : Care provider IV Discontinued : Yes Personal Belongings With Patient : Yes Prescriptions Given to Patient : Yes Discharge Instructions Reviewed With, Opportunity For Questions Given : Patient, Care provider Patient Education Completed : Yes Number of Prescriptions Given : 3 Teaching Method : Explanation Teaching Evaluation : Verbalizes understanding Deborah Martinez RN - 02/02/2019 15:28 EDT Electronically signed by Aleks, [facility] Conversion Sales Agent Business Services Cerner at 07/24/2022 3:42 PM CDT documented in this encounter Plan of Treatment Not on file documented as of this encounter Visit Diagnoses Not on filedocumented in this encounter Care Teams Advertising Assistant Manager Relationship Specialty Start Date End Date Juan José Kendall MD [address] [facility] [address] [place] [address] PCP - General Family Medicine 12/25/22 Juan José Kendall MD [address] [facility] [address] [place] [address] Referring Physician Family Medicine 12/25/22 documented as of this encounter
--- OUTSIDE RECORDS SUMMARY | 2024-03-11 09:13 | XMS_ITS | Encounter Summary ---
Author Organization [employer] Address [address] [place] [address] Care Team Providers Care Election Watcher Name Role Phone Juan José Kendall MD Primary Care Provider + [phone] Juan José Kendall MD Unavailable [phone] Encounter Details Date Type Department Care Team (Late st Contact Info) Description 02/02/2019 Transcribed Document [facility] [place] [address] [place] [address] ProviderLaurie MD [address] [place] [address] Social History Tobacco Use Types Packs/Day Years Used Date Smoking Tobacco: Never Assessed Comments Unknown Sex and Gender Information Value Date Recorded Sex Assigned at Not on file Legal Sex Female 2:23 PM CDT Gender Identity Not on file Sexual Orientation Not on file documented as of this encounter Miscellaneous Notes * Cerner Conversion Note - Historical ProviderMD - 02/02/2019 3:29 PM CDT Stroke/Warfarin Instructions Entered On: 02/02/2019 15:29 EDT Performed On: 02/02/2019 15:29 EDT by Deborah Martinez RN Stroke/Warfarin Instructions Stroke/TIA Discharge Ins : N/A Warfarin Discharge Ins : N/A Deborah Martinez RN - 02/02/2019 15:29 EDT Electronically signed by Aleks [facility] Conversion Gynaecological Oncologist Cerner at 07/24/2022 3:37 PM CDT documented in this encounter Plan of Treatment Not on file documented as of this encounter Visit Diagnoses Not on filedocumented in this encounter Care Teams Election Watcher Relationship Specialty Start Date End Date Juan José Kendall MD [address] [place] [address] PCP - General Family Medicine 12/25/22 Juan José Kendall MD [address] [place] [address] Referring Physician Family Medicine 12/25/22 documented as of this encounter
--- OUTSIDE RECORDS SUMMARY | 2024-03-11 09:13 | XMS_ITS | Encounter Summary ---
Author Organization [facility] [employer] Address [address] [place] [address] Care Team Providers Care Service Order Expediter Name Role Phone Unavailable Primary Care Provider Unavailabl e Encounter Details Date Type Department Care Team (Late st Contact Info) Description 02/01/2019 Historic Encounter [address] [address] Provider, [facility] Historical Social History Tobacco Use Types Packs/Day [...] Procedure Name Priority Date/Time Associated Diagnosis Comments CROSSMATCH Routine 02/01/2019 6:25 AM EDT documented in this encounter Results * Crossmatch (02/01/2019 6:25 AM EDT) BB PRODUCT 02/01/2019 11:16 AM EDT [facility] BB PRODUCT 02/01/2019 11:16 AM EDT [facility] BB ID [id number] 02/01/2019 11:16 AM EDT Blood 02/01/2019 6:25 AM EDT 02/01/2019 10:30 AM EDT Narrative [facility] - 02/01/2019 11:16 AM EDT Ordered by Discern [facility] Historical Provider BLOOD BANK TEST ORDERAB LES Edited Result - Final [facility] [address] [phone] documented in this encounter Visit Diagnoses Not on filedocumented in this encounter
--- OUTSIDE RECORDS SUMMARY | 2024-03-11 09:13 | XMS_ITS | Encounter Summary ---
Author Organization [facility] [employer] Address [address] [place] [address] Care Team Providers Care Strategic Partnership Specialist Name Role Phone Unavailable Primary Care Provider Unavailabl e Encounter Details Date Type Department Care Team (Late st Contact Info) Description 02/01/2019 Historic Encounter [address] [address] Provider [facility] Historical Social History Tobacco [...] Procedure Name Priority Date/Time Associated Diagnosis Comments CMP COMPREHENSIVE METABOLIC PANEL ([facility] DATA CONV) Routine 02/01/2019 4:18 AM EDT documented in this encounter Results * (ABNORMAL) CMP COMPREHENSIVE METABOLIC PANEL ([facility] DATA CONV) (02/01/2019 4:18 AM EDT) Sodium Level 139 136 - 146 mmol/L 02/01/2019 9:40 AM EDT Potassium Level 3.9 3.5 - 5.1 mmol/L 02/01/2019 9:40 AM EDT Chloride Level 109 102 - 112 mmol/L 02/01/2019 9:40 AM EDT Carbon Dioxide Level 25 21 - 32 mmol/L 02/01/2019 9:40 AM EDT Anion Gap 9 9 - 20 02/01/2019 9:40 AM EDT Calcium Level 8.2(L) 8.5 - 10.1 mg/dL 02/01/2019 9:40 AM EDT Glucose Level 92 74 - 106 mg/dL 02/01/2019 9:40 AM EDT Comment: [facility] has become aware of sulfasalazine and sulfapyridine drug interference in the assays ALT, AST, T4, CKMB, glucose, and ammonia. The probability of misinterpretation of results for the assays is remote and would be limited to scenarios where a patient has taken the drug and had a blood sample drawn before clearance of the drug to a level that does not interfere with laboratory testing. Venipuncture should occur prior to administration of the drug. Blood Urea Nitrogen 24(H) 7 - 22 mg/dL 02/01/2019 9:40 AM EDT Creatinine Level 1.15(H) 0.55 - 1.02 mg/dL 02/01/2019 9:40 AM EDT Bun/Creatinine 20.9(H) 8.0 - 20.0 02/01/2019 9:40 AM EDT Albumin Level 2.2(L) 3.4 - 5.0 Gram/dL 02/01/2019 9:40 AM EDT Protein, Total 5.3(L) 6.4 - 8.2 Gram/dL 02/01/2019 9:40 AM EDT A/G Ratio 0.7(L) 1.1 - 2.5 02/01/2019 9:40 AM EDT Alk Phos 76 27 - 136 Units/Lit er 02/01/2019 9:40 AM EDT ALT <6(L) 12 - 78 Units/Lit er 02/01/2019 9:40 AM EDT Comment: [facility] has become aware of sulfasalazine and sulfapyridine drug interference in the assays ALT, AST, T4, CKMB, glucose, and ammonia. The probability of misinterpretation of results for the assays is remote and would be limited to scenarios where a patient has taken the drug and had a blood sample drawn before clearance of the drug to a level that does not interfere with laboratory testing. Venipuncture should occur prior to administration of the drug. AST 12 5 - 37 Units/Lit er 02/01/2019 9:40 AM EDT Comment: [facility] has become aware of sulfasalazine and sulfapyridine drug interference in the assays ALT, AST, T4, CKMB, glucose, and ammonia. The probability of misinterpretation of results for the assays is remote and would be limited to scenarios where a patient has taken the drug and had a blood sample drawn before clearance of the drug to a level that does not interfere with laboratory testing. Venipuncture should occur prior to administration of the drug. Bilirubin, Total 0.3 0.2 - 1.3 mg/dL 02/01/2019 9:40 AM EDT Globulin 3.1 1.5 - 4.5 Gram/dL 02/01/2019 9:40 AM EDT eGFR 58(L) >=60 mL/min/1. 73m2 02/01/2019 9:40 AM EDT Comment: GFR <60 suggests chronic kidney disease, if found over 3 month period. GFR <15 indicates renal failure. eGFR NonAfrican 48(L) >=60 mL/min/1. 73m2 02/01/2019 9:40 AM EDT Comment: GFR <60 suggests chronic kidney disease, if found over 3 month period. GFR <15 indicates renal failure. Blood 02/01/2019 4:18 AM EDT 02/01/2019 9:26 AM EDT [facility] Historical Provider LAB BLOOD ORDERABLES Fi nal Result [facility] [address] [phone] documented in this encounter Visit Diagnoses Not on filedocumented in this encounter
--- OUTSIDE RECORDS SUMMARY | 2024-03-11 09:13 | XMS_ITS | Encounter Summary ---
Author Organization [employer] Address [address] [place] [address] Care Team Providers Care Corporate Analyst Name Role Phone Juan José Kendall MD Primary Care Provider [phone] Juan José Kendall MD Unavailable [phone] Encounter Details Date Type Department Care Team (Late st Contact Info) Description 12/28/2022 10:[address] [facility] OP Occupational Therapy [address] [facility] [address] [place] [phone] Juan José Kendall MD [address] [facility] [address] [place] [address] Chinyere Bah, OTR/L [address] [facility] [address] [place] [address] [id number] Impaired mobility (Primary Dx) Social History Tobacco Use Types Packs/Day Years Used Date Smoking Tobacco: Never Assessed Comments Unknown Sex and Gender Information Value Date Recorded Sex Assigned at Not on file Legal Sex Female 2:23 PM CDT Gender Identity Not on file Sexual Orientation Not on file documented as of this encounter Progress Notes * Chinyere Bah OTR/Ivan - 12/28/2022 10:00 AM EDT Images from the original note were not included. OUTPATIENT THERAPY SERVICES SEATING AND MOBILITY EVAL 12/28/2022 Time In: 10:00 Time Out: 10:30 Trudi Blair 1955 presents today via audio and video telehealth for a wheelchair evaluation. Referring Physician: Juan José Kendall MD Trudi Blair has the following health diagnosis that impact her mobility for MRADLs: shoulder pain, arthritis, cervical neck pain, hand arthritis, DDD, wheelchair dependent, R AKA, L TKR and removal, history of knee replacement with torn patellar tendon with failed repair and construction with MRSA development, laminectomies L3-4, fall risk, L foot swelling HEIGHT: 5'6 WEIGHT: 170 lbs Contraindications/Precautions: at risk for falls and skin breakdown Social History: Lives with spouse Home Environment one level Wheelchair Assessable Rooms: yes Current Functional Status: Patient performs >50% of task Equipment: Wheelchair standard height, shower chair/transfer bench, hand held shower, Subjective Patient complains of severe shoulder and neck pain with self propulsion of wheelchair. L LE pain with assisting to self propel Pain 7/10 in bilateral shoulder and neck with self propulsion 10/10 right LE phantom limb pain Objective Cognitive/Visual Status Status Comments Memory Skills intact Problem Solving intact Judgement intact Attention/Concentration intact Vision intact Hearing intact Other intact ADL Status Status Comments Dressing Needs assistance Bathing Needs assistance With transfers in bath; mod A Feeding Independent Grooming/Hygiene Needs assistance Toileting Needs assistance Meal Prep Needs assistance Easy meals Home Management Needs assistance Assistance with cleaning high up places Bowel/Bladder Management Continent/Incontinent Comments Bladder continent Bowel continent Cardiac Status: intact Respiratory Status: intact Sensation: impaired L UE tingling just started in last week History of Pressure Ulcer: yes in sacral area Current Pressure Ulcer: no Strength and ROM RIGHT ROM LEFT ROM RIGHT MMT LEFT MMT Hip Flexion Minimally limited Moderately limited 3-/5 2/5 Hip Abduction WNL WNL 3/5 3/5 Hip Adduction WNL WNL 3/5 3/5 Knee Extension Unable Unable 0/5 1/5 Knee Flexion Unable Severely limited 0/5 2-/5 Dorsiflexion Unable Severely limited 0/5 2-/5 Plantar Flexion Unable Severely limited 0/5 2-/5 Shoulder Flexion Minimally limited Minimally limited 3-/5 3-/5 Shoulder Abduction Minimally limited Minimally limited 3-/5 3-/5 Shoulder IR Minimally limited Minimally limited 3-/5 3-/5 Shoulder ER Minimally limited Minimally limited 3-/5 3-/5 Elbow Flexion WNL WNL 3/5 3/5 Elbow Extension WNL WNL 3/5 3/5 Wrist Flexion WNL WNL 3/5 3/5 Wrist Extension WNL WNL 3/5 3/5 Mobility Skills Assist Comments Sit to stand Unable to stand Squat pivot 2/2 R AKA and L knee flexion contracture Bed? W/C Transfer W/C? commode Transfer Squat pivot From [facility] to toilet Ambulation unable Wheelchair bound Manual W/C experiencing shoulder and neck pain Operate Power W/C With Standard Joystick Operate Power W/C with Alternative Controls Weight Shifts Hours Spent in W/C Each day 10+ Clinical Criteria/Algorithm Summary 1. What medical conditions limit your patient's ability to participate in Mobility Related Activities of Daily Living (MRADLs) in their home? Trudi Blair has the following health diagnosis that impact her mobility for MRADLs: shoulder pain, arthritis, cervical neck pain, hand arthritis, DDD, wheelchair dependent, R AKA, L TKR and removal, history of knee replacement with torn patellar tendon with failed repair and construction with MRSA development, laminectomies L3-4, fall risk, L foot swelling 2. List what MRADLs in the home are impaired due to your patient's mobility limitation. Dressing, Bathing, Toileting, Grooming, Meal Prep, Home Management 3. Why can't an appropriately fitted cane or walker meet your patient's mobility needs at home? Trudi Blair cannot use cane or walker due to overall weakness and debility. Trudi Blair would benefit from a power wheelchair to complete MRADLs safely and efficiently. 4. Why can't a scooter (POV) meet your patient's mobility needs in the home? Trudi Blair has UE and trunk weakness and therefore cannot manage the tiller system of the POV. Trudi Blair has LE weakness and cannot safely transfer on or off the POV. Inadequate space inside the home/apt to manage the turning radius of the POV. 5. Is the patient willing and does the patient have the physical and mental abilities to safely operate a power wheelchair in the home? yes Trudi Blair is willing and has the physical and mental abilities to operate a power chair safely in home. 6. Why can't an optimally configured manual wheelchair meet your patient's mobility needs in the home? Trudi Blair has poor strength and endurance and cannot manually propel the optimally configured manual wheelchair using upper body. They cannot assist self propulsion using lower body due to decreased strength and range of motion. 7. If the patient does not require custom or powered seating components, can they safely transfer to and from the power wheelchair? Trudi can safely transfer to and from the power wheelchair safely Recommendations/Goals Manual Wheelchair POV Power Wheelchair X Positioning System Seating Additional Comments Trudi Blair is currently unable to function due to mobility limitations but wishes to remain independent in day-to-day activities. A cane or 4 wheeled walker is not appropriate throughout the day for MRADL completion because Trudi Blair is wheelchair bound and experiences shoulder pain with self propulsion currently. An optimally con?gured manual wheelchair is not appropriate due to Trudi Riveras weakness in UE and LE and SOA with exertion and inability to self propel. A scooter is not appropriate because scooters do not provide the maneuverability necessary for Trudi Blair to navigate the living area. Trudi Riveras back and shoulder pain prevents Trudi Blair from safely reaching a scooter???s steering handles. Trudi Blair requires the stability of a power chair over a scooter. Trudi Blair requires a power wheelchair in order to remain independentin the home. Trudi Blair will use the requested power wheelchair for assistance with toileting, feeding, grooming, dressing, bathing, etc. Trudi Blair is mentally and physically capable to safely operate a power wheelchair. Trudi Blair is able to transfer in/out of power wheelchairs safely with a step pivot transfer using a rolling walker. Evaluation Only. Please see order documented in this encounter Plan of Treatment Not on file documented as of this encounter Visit Diagnoses Diagnosis Impaired mobility- Primary Other ill-defined conditions documented in this encounter Care Teams Corporate Analyst Relationship Specialty Start Date End Date Juan José Kendall MD [address] [place] [facility] [address] [place] [phone] PCP - General Family Medicine 12/25/22 Juan José Kendall MD [address] [facility] [address] [facility] [place] [address] Referring Physician Family Medicine 12/25/22 documented as of this encounter
--- OUTSIDE RECORDS SUMMARY | 2024-03-11 09:13 | XMS_ITS | Encounter Summary ---
Author Organization [employer] Address [address] [place] [address] Care Team Providers Care Communications Equipment Installer Name Role Phone Juan José Kendall MD Primary Care Provider [phone]- [phone] Juan José Kendall MD Unavailable [phone] Encounter Details Date Type Department Care Team (Late st Contact Info) Description 02/02/2019 Transcribed Document [facility] Family Medicine [facility] [place] [address] Laurie Gracia MD [address] [place] [id number] Social History Tobacco Use Types Packs/Day Years Used Date Smoking Tobacco: Never Assessed Comments Unknown Sex and Gender Information Value Date Recorded Sex Assigned at Not on file Legal Sex Female 2:23 PM CDT Gender Identity Not on file Sexual Orientation Not on file documented as of this encounter Miscellaneous Notes * Cerner Conversion Note - Laurie Garcia MD - 02/02/2019 3:56 PM CDT Patient: TRUDI BLAIR Age: 63 years Sex: Female : 1955 Associated Diagnoses: Status post Patellar tendon Reconstruction; Acute blood loss anemiaOn chronic, postoperative Status post ruthie of 2 units of packed RBCs; 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 Patient then her right lower extremity was placed in a cast. 1???acute blood loss anemia postoperatively on the top of chronic anemia for which patient had that transfusion of 2 units of packed RBCs 2???benign essential hypertension, all blood pressure medications were on hold for systolic blood pressure less than 130 and resumed When blood pressure became stabilized 3???hypercholesterolemia, atorvastatin 20 mg was given daily at bedtime 4???GERD, Protonix 40 mg was given daily 5???obstructive sleep apnea, oxygen and BiPAP were on board 6???obesity with BMI of 34.5, patient was on sleep apnea precautions Discharge Information Patient had surgery and is recovering well. patient is awake, alert, cooperative, responsive, and is under no acute distress. Patient is on pain medication as recommended by DR Guerrero Patient's pain is well controlled. Patient is on DVT prophylaxis As per Dr. Guerrero protocol and also on scheduled bowel regimen. Urine out-put is adequate. Started on clear liquid diet & advanced as tolerated to regular diet. She started on PT/OT and was participating well with rehabilitation. Review of Systems Constitutional: No fever, No weakness, No fatigue. Eye: No recent visual problem, No double vision, No visual disturbances. Ear/Nose/Mouth/Throat: No nasal congestion, No sore throat. Respiratory: No shortness of breath, No cough, No wheezing. Cardiovascular: No chest pain, No tachycardia. Gastrointestinal: No nausea, No vomiting. Genitourinary: Negative. Musculoskeletal: right lower extremity in a cast. Integumentary: wound stable covered w. clean dressing, No rash, No pruritus. Neurologic: Alert and oriented X4, no dizziness. Health Status Allergies: Allergies (1) Active Reaction Biaxin Acid reflux Current medications: Medications (26) Active Scheduled: (9) #NaCl 0.9% *FLUSH* inj 10 mL 10 mL, IV Push, Q12H acetaminophen 500 mg tab 500 mg 1 Tab, Oral, Q6HInt atorvastatin 20 mg tab 20 mg 1 Tab, Oral, At Bedtime enoxaparin 40 mg/0.4 mL inj 40 mg 0.4 mL, SubCutaneous, Daily metoclopramide 10 mg tab 10 mg 1 Tab, Oral, BID metoprolol succinate XL 50 mg tab 50 mg 1 Tab, Oral, Daily pantoprazole EC 40 mg tab 40 mg 1 Tab, Oral, Daily potassium chloride CR 20 mEq tab 20 mEq 1 Tab, Oral, BID topiramate 25 mg sprinkle cap 50 mg 2 Cap, Oral, BID Continuous: (1) D5/LR 1,000 mL 1,000 mL, IntraVENous, 125 mL/Hr PRN: (16) #NaCl 0.9% *FLUSH* inj 3 mL 5 mL, IntraVENous, See Comment al hydrox/mag hydrox/simeth 30 mL liq 30 mL, Oral, Q6H albuterol-ipratropium inh 3 mL 3 mL, Nebulized Inhalation, Q4H bisacodyl 10 mg supp 10 mg 1 Supp, Rectal, Daily diphenhydrAMINE 25 mg tab 25 mg 1 Tab, Oral, On-CALL docusate calcium 240 mg cap 240 mg 1 Cap, Oral, Daily HYDROmorphone 2 mg tab 4 mg 2 Tab, Oral, Q6H magnesium hydroxide 8% liq 30 mL 15 mL, Oral, Q6H metaxalone 800 mg tab 800 mg 1 Tab, Oral, TID ondansetron 4 mg tab 4 mg 1 Tab, Oral, Q6H ondansetron 4 mg/2 mL inj 4 mg 2 mL, IV Push, Q4H petrolatum 100% oint 28 g 1 Application, Topical, Daily phenol 1.4% throat spray 5 [place], Oral, Q2H scopolamine 1.5 mg/72 hr patch 1 Patch, TransDermal, Q3Days tapentadol 50 mg tab 100 mg 2 Tab, Oral, Q6H traZODone 50 mg tab 50 mg 1 Tab, Oral, At Bedtime Problem list: Medical At risk for sleep apnea / IMO 90199523 / Confirmed Back pain / SNOMED CT 737978379 / Confirmed Stress incontinence / SNOMED CT 634823441 / Confirmed GERD (gastroesophageal reflux disease) / SNOMED CT 6765198645 / Confirmed History of obstructive sleep apnea / IMO 94803170 / Confirmed High cholesterol / SNOMED CT 52037626 / Confirmed HTN (hypertension) / SNOMED CT 6298264033 / Confirmed Arthritis / SNOMED CT 2573704200 / Confirmed MRSA infection / SNOMED CT 2096999104 / Confirmed, Active Problems (9) Arthritis At risk for sleep apnea Back pain GERD (gastroesophageal reflux disease) High cholesterol History of obstructive sleep apnea HTN (hypertension) MRSA infection Stress incontinence Physical Examination VS/Measurements Vital Measurements 02/02/2019 11:35 EDT Systolic Blood Pressure 127 mmHg Diastolic Blood Pressure 67 mmHg Mean Arterial Pressure (MAP)-BMDI 80 Temperature Source Oral Temperature Mode Fahrenheit Temperature, Fahrenheit 99.8 Deg F HI Clinical Temperature, C 37.7 Deg C Heart Rate Monitored 87 bpm Respiratory Rate 16 Breaths/Min Oxygen Saturation 99 % Oxygen Therapy Mode Room air General: Alert and oriented, No acute distress. Eye: Pupils are equal, round and reactive to light, Extraocular movements are intact. HENT: Oral mucosa is moist. Neck: Supple, No carotid bruit, No jugular venous distention, No lymphadenopathy, No thyromegaly. Respiratory: Lungs are clear to auscultation, Breath sounds are equal. Cardiovascular: Normal rate, Regular rhythm, No murmur. Gastrointestinal: Soft, Non-tender, Normal bowel sounds, No organomegaly. Genitourinary: No costovertebral angle tenderness, No inguinal tenderness. Lymphatics: No lymphadenopathy neck, axilla, groin. Musculoskeletal: right lower extremity in a cast. Integumentary: Warm, Intact, No rash. Neurologic: Alert, Oriented, No focal deficits. Psychiatric: Cooperative, Appropriate mood & affect. Review / Management Results review: All Results 02/02/2019 5:43 EDT Hgb 9.5 Gram/dL LOW Hct 30.3 % LOW 02/01/2019 4:18 EDT Sodium Level 139 mmol/L Potassium Level 3.9 mmol/L Chloride Level 109 mmol/L Carbon Dioxide Level 25 mmol/L Anion Gap 9 Glucose Level 92 mg/dL Blood Urea Nitrogen 24 mg/dL HI Creatinine Level 1.15 mg/dL HI eGFR 58 mL/min/1.73m2 LOW eGFR NonAfrican 48 mL/min/1.73m2 LOW Bun/Creatinine 20.9 HI Calcium Level 8.2 mg/dL LOW Protein Total 5.3 Gram/dL LOW Albumin Level 2.2 Gram/dL LOW Globulin 3.1 Gram/dL A/G Ratio 0.7 LOW Bilirubin Total 0.3 mg/dL Alk Phos 76 Units/Liter AST 12 Units/Liter ALT <6 Units/Liter LOW WBC 8.3 K/uL RBC 2.58 Million/uL LOW Hgb 7.6 Gram/dL LOW Hct 24.3 % LOW MCV 94.2 fL MCH 29.5 pg MCHC 31.3 Gram/dL LOW Platelet Count 251 K/uL MPV 11.2 fL RDW 15.2 % HI Neut % 70.3 % Neut # 5.86 K/uL Lymph % 13.2 % LOW Lymph # 1.10 K/uL LOW [place] % 14.4 % HI [place] # 1.20 K/uL HI Eos % 1.0 % Eos # 0.08 K/uL Baso % 0.7 % Baso # 0.06 K/uL Slide Review No IG# 0 x10(3)/uL IG% 0 % . Condition: Stable. Discharge Plan Discharge Summary Plan Discharge Status: stable. Orders Order Profile (Selected) Inpatient Orders Ordered Discharge Notification Pharmacy: Start: 02/02/19 14:33:09 EDT Discharge: Start: 02/02/19 14:33:00 EDT, Discharge to: Home, Other DC instructions: okay to DC home from medical standpoint and if released by Dr. Guerrero and PT/OT. Nursing staff and case management to follow up on Dr. Guerrero and PT/OT recommendations. Diagnosis Status post Patellar tendon Reconstruction - Discharge, Medical. Acute blood loss anemiaOn chronic, postoperative Status post ruthie of 2 units of packed RBCs - Discharge, Medical. 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 Revision of left total knee arthroplasty after spacer removal - Discharge, Medical. History of left knee MRSA infection - Discharge, Medical. HTN (hypertension) - Discharge, Medical. Hypercholesterolemia - Discharge, Medical. History of obstructive sleep apnea - Discharge, Medical. GERD (gastroesophageal reflux disease) - Discharge, Medical. At risk for sleep apnea - Discharge, Medical. Obesity (BMI 30.0-34.9) - Discharge, Medical. Course Improving. Stable. Plan/ pt is HD & CLINICALLY STABLE AFEBRILE OK TO D/C HOME ALL CONSULTANTS AGREE FOR HER D/C HOME ON HH / OUTPT.REHAB. Discussed with patient and family patient condition.. Orders Order Profile (Selected) Prescriptions Prescribed Percocet 7.5/325 oral tablet: 1 Tab, Oral, Tab, Q4H, PRN for pain, 1 by mouth every 4-6 hours when necessary, X 10 Day(s), # 40 Tab, 0 Refill(s), other reason (Rx) Xarelto 10 mg oral tablet: 1 Tab, Oral, Tab, Daily, # 7 Tab, 0 Refill(s) aspirin 325 mg oral tablet: 1 Tab, Oral, Tab, BID, for DVT prophylaxis to be started after finishing the course of his Xarelto 10 mg oral daily ??7 days, # 60 Tab, 0 Refill(s) Documented Medications Documented Metoprolol Succinate ER 50 mg oral tablet, extended release: 1 Tab, Oral, Daily, 0 Refill(s) Myrbetriq 25 mg oral tablet, extended release: 1 Tab, Oral, At Bedtime, 0 Refill(s) atorvastatin 20 mg oral tablet: 1 Tab, Oral, Tab, At Bedtime, 0 Refill(s) metoclopramide 10 mg oral tablet: 1 Tab, Oral, Tab, BID, 0 Refill(s) pantoprazole 40 mg oral delayed release tablet: 1 Tab, Oral, EC Tab, Daily, 0 Refill(s) potassium chloride 20 mEq oral tablet, extended release: 1 Tab, Oral, BID, 0 Refill(s) topiramate 50 mg oral tablet: 1 Tab, Oral, BID, 0 Refill(s) traZODone 50 mg oral tablet: 1 Tab, Oral, Tab, At Bedtime, PRN Insomnia, 0 Refill(s). Impression and Plan twt 40 mn documented in this encounter Plan of Treatment Not on file documented as of this encounter Visit Diagnoses Not on filedocumented in this encounter Care Teams Communications Equipment Installer Relationship Specialty Start Date End Date Juan José Kendall MD [address] [facility] [address] [place] [phone] PCP - General Family Medicine 12/25/22 Juan José Kendall MD [address] [place] [facility] [address] [place] [address] Referring Physician Family Medicine 12/25/22 documented as of this encounter
--- OUTSIDE RECORDS SUMMARY | 2024-03-11 09:13 | XMS_ITS | Encounter Summary ---
Author Organization [facility] [employer] Address [address] [place] [address] Care Team Providers Care Note Keeper Name Role Phone Unavailable Primary Care Provider Unavailabl e Encounter Details Date Type Department Care Team (Late st Contact Info) Description 02/01/2019 Historic Encounter [address] [address] Provider, [facility] Historical Social History Tobacco Use Types Packs/Day [...] Procedure Name Priority Date/Time Associated Diagnosis Comments AUTOMATED DIFFERENTIAL ([facility] DATA CONV) Routine 02/01/2019 4:18 AM EDT documented in this encounter Results * (ABNORMAL) AUTOMATED DIFFERENTIAL ([facility] DATA CONV) (02/01/2019 4:18 AM EDT) Neut% 70.3 34.0 - 71.0 % 02/01/2019 9:13 AM EDT Lymph% 13.2(L) 19.3 - 53.0 % 02/01/2019 9:13 AM EDT [place]% 14.4(H) 4.7 - 12.5 % 02/01/2019 9:13 AM EDT Eos% 1.0 1.0 - 7.0 % 02/01/2019 9:13 AM EDT Baso% 0.7 0.0 - 1.0 % 02/01/2019 9:13 AM EDT IG% 0 0 - 1 % 02/01/2019 9:13 AM EDT Neut# 5.86 1.56 - 6.13 K/uL 02/01/2019 9:13 AM EDT Lymph# 1.10(L) 1.18 - 3.74 K/uL 02/01/2019 9:13 AM EDT [place]# 1.20(H) 0.24 - 0.82 K/uL 02/01/2019 9:13 AM EDT Eos# 0.08 0.04 - 0.54 K/uL 02/01/2019 9:13 AM EDT Baso# 0.06 0.01 - 0.08 K/uL 02/01/2019 9:13 AM EDT IG# 0 0 - 0 x10(3)/uL 02/01/2019 9:13 AM EDT Blood 02/01/2019 4:18 AM EDT 02/01/2019 9:10 AM EDT Narrative [facility] - 02/01/2019 9:26 AM EDT Added by Discern Expert us Sleh Historical Provider LAB BLOOD ORDERABLES Fi nal Result [facility] [address] [place], [place] [address] [phone] documented in this encounter Visit Diagnoses Not on filedocumented in this encounter
--- OUTSIDE RECORDS SUMMARY | 2024-03-11 09:13 | XMS_ITS | Encounter Summary ---
Author Organization [employer] Address [address] [facility] [facility] [place] [address] Care Team Providers Care Methods Examiner Name Role Phone Juan José Kendall MD Primary Care Provider + [phone] Juan José Kendall MD Unavailable [phone] Encounter Details Date Type Department Care Team (Late st Contact Info) Description 02/02/2019 Transcribed Document [facility] Family Medicine [address] [place] [address] ProviderLaurie MD [address] [place] [address] Social History Tobacco Use Types Packs/Day Years Used Date Smoking Tobacco: Never Assessed Comments Unknown Sex and Gender Information Value Date Recorded Sex Assigned at Not on file Legal Sex Female 2:23 PM CDT Gender Identity Not on file Sexual Orientation Not on file documented as of this encounter Miscellaneous Notes * Cerner Conversion Note - Laurie ProviderMD - 02/02/2019 2:33 PM CDT REBECCA Entered On: 02/02/2019 14:33 EDT Performed On: 02/02/2019 14:33 EDT by JONES HIDALGO MD-INT REBECCA Indication of use for OOCS : Acute Illness OOCS Misuse Suspected : Other Was REBECCA queried : Other Patient Advised to seek OOCS Treatment : Other Treatment to Include Limited Supply of OOCS : Other REBECCA Result : Other REBECCA Other Notes : as per Dr. Guerrero office records Patient cancelled on OOCS : Other REBECCA : . JONES HIDALGO MD-INT - 02/02/2019 14:33 EDT documented in this encounter Plan of Treatment Not on file documented as of this encounter Visit Diagnoses Not on filedocumented in this encounter Care Teams Methods Examiner Relationship Specialty Start Date End Date Juan José Kendall MD [address] [facility] [address] [place] [address] PCP - General Family Medicine 12/25/22 Juan José Kendall MD [facility] [facility] [address] [place] [address] Referring Physician Family Medicine 12/25/22 documented as of this encounter
--- OUTSIDE RECORDS SUMMARY | 2024-03-11 09:13 | XMS_ITS | Encounter Summary ---
Author Organization [employer] Address [address] [place] [address] Care Team Providers Care Tool Carrier Name Role Phone Juan José Kendall MD Primary Care Provider + [phone] Juan José Kendall MD Unavailable [phone] Encounter Details Date Type Department Care Team (Late st Contact Info) Description 02/02/2019 Transcribed Document [facility] [place] [address] ProviderLaurie MD [address] [place], [place] [address] Social History Tobacco Use Types Packs/Day Years Used Date Smoking Tobacco: Never Assessed Comments Unknown Sex and Gender Information Value Date Recorded Sex Assigned at Not on file Legal Sex Female 2:23 PM CDT Gender Identity Not on file Sexual Orientation Not on file documented as of this encounter Miscellaneous Notes * Cerner Conversion Note - Historical ProviderMD - 02/02/2019 3:28 PM CDT Patient Education Materials Follows: Hand Washing Germs like bacteria, viruses, and parasites are found everywhere. They can be in the air and water, and they can be on surfaces like food, door handles, and your skin. Every day, your hands touch germs. Many of these germs can make you and your family sick. Washing your hands is one of the best ways to lower your risk of getting and sharing germs. When should I wash my hands or use a hand-washing alcohol gel? You should wash your hands whenever you think they are dirty. You should also wash your hands: ??? Before: ? Visiting a baby or anyone with a weakened or lowered defense (immune) system. ? Putting in and taking out any contact lenses. ??? After: ? Working or playing outside. ? Touching an animal or its toys or leash. ? Handling livestock, such as cows or sheep. ? Using the bathroom. ? Using household warranty administrator or poisonous chemicals. ? Touching or taking out the garbage. ? Touching anything dirty around your home. ? Handling dirty clothes or rags. ? Taking care of a sick child. This includes touching used tissues, toys, and clothes. ? Sneezing, coughing, or blowing your nose. ? Using public transportation. ? Shaking hands. ? Using a phone, including your mobile phone. ? Touching money. ??? Before and after: ? Preparing food. ? Preparing a bottle for a baby. ? Feeding a baby or young child. ? Eating. ? Visiting or taking care of someone who is sick. ? Changing a diaper. ? Changing a bandage (dressing). ? Taking care of an injury or wound. ? Giving or taking medicine. If you are preparing food, hand-washing alcohol gels are not recommended as a replacement for hand washing. What is the right way to wash my hands? Wet your hands with clean, running water. ??? Apply liquid soap or bar soap to your hands. ??? Rub your hands together quickly to create lather. ??? Keep rubbing your hands together for at least 20 seconds. Thoroughly scrub all parts of your hands, including under your fingernails and between your fingers. ??? Rinse your hands with clean, running water. Do this until all the soap is gone. ??? Dry your hands using an air dryer or a clean paper or cloth towel, or let your hands air-dry. Do not use your clothing or a dirty towel to dry your hands. ??? If you are in a public restroom, use your towel: ? To turn off the water faucet. ? To open the bathroom door. This information is not intended to replace advice given to you by your health care provider. Make sure you discuss any questions you have with your health care provider. Document Released: 03/04/2009 Document Revised: 08/27/2016 Document Reviewed: 08/17/2014 [employer] Patient Education ? 2018 [employer] Patellar Tendon Tear A patellar tendon tear, also called a patellar tendon rupture, is a tear in the thick band of tissue that connects the kneecap (patella) to the del castillo bone (tibia). The condition can make it hard or impossible to straighten the leg. What are the causes? This condition can be caused by: ??? A hard, direct hit (blow) to the front of the knee. ??? Falling on your knee. ??? A deep cut under the patella ??? Landing on your foot with your knee bent after a high jump or fall. ??? Activity-related wear and tear that weakens the tendon. What increases the risk? This condition is more likely to develop in: ??? Athletes who plays contact sports. ??? Athletes who participate in sports that involve jumping or have a high risk of falls, such as downhill skiing. ??? People who are younger than age 40. ??? People who have a weakened tendon from: ? Long-lasting jumper?s knee (patellar tendinitis). ? Medical conditions like diabetes or rheumatoid arthritis. ? Repeated corticosteroid use. What are the signs or symptoms? The main symptom of this condition is severe pain. Other symptoms include: ??? A popping sound. ??? Swelling. ??? Weakness in your knee. ??? Difficulty straightening your knee or the inability to straighten your knee. ??? A feeling that your knee is giving way (instability). ??? Bruising. ??? A patella that slides up toward the thigh. How is this diagnosed? This condition may be diagnosed based on: ??? Your symptoms. ??? Your medical history. ??? A physical exam. ??? Imaging tests, such as: ? X-rays to check if your patella has moved up and out of place. ? MRI to check for a tear or disruption of the patellar tendon. During the physical exam, your health care provider will check the position of your patella and see if you can extend your knee. How is this treated? This condition may be treated by: ??? Resting your knee and keeping it from bending. ??? Wearing a knee brace for several weeks to keep your knee straight. ??? Using crutches or a walker to keep weight off your knee. ??? Taking medicine to reduce pain and swelling. ??? Doing exercises (physical therapy) to restore full movement and strength to your knee. If these treatments do not help, you may need to have surgery to reattach the tendon or to repair the tear. Follow these instructions at home: If you have a brace: ??? Wear it as told by your health care provider. Remove it only as told by your health care provider. ??? Loosen the brace if your toes tingle, become numb, or turn cold and blue. ??? If your brace is not waterproof: ? Do not let it get wet. ? Cover it with a watertight covering when you take a bath or shower. ??? Keep the brace clean. Managing pain, stiffness, and swelling ??? If directed, apply ice to your knee. ? Put ice in a plastic bag. ? Place a towel between your skin or brace and the bag. ? Leave the ice on for 20 minutes, 2?3 times a day. ??? Move your toes often to avoid stiffness and to lessen swelling. ??? Raise (elevate) your knee to the level of your heart or above that level while you are sitting or lying down. ??? Take jpjy-adj-qjewjlx and prescription medicines only as told by your health care provider. Driving ??? Do not drive or operate heavy machinery while taking prescription pain medicine. ??? Ask your health care provider when it is safe for you to drive. Activity ??? Return to your normal activities as told by your health care provider. Ask your health care provider what activities are safe for you. ??? Do exercises as told by your health care provider. General instructions ??? Do not use your knee to support your body weight until your health care provider says that you can. Use crutches or a walker?as told by your health care provider. ??? Do not use any tobacco products, such as cigarettes, chewing tobacco, and e-cigarettes. Tobacco can delay healing. If you need help quitting, ask your health care provider. ??? Keep all follow-up visits as told by your health care provider. This is important. How is this prevented? Give your body time to rest between periods of activity. ??? Make sure to use equipment that fits you. ??? Be safe and responsible while being active to avoid falls. ??? Maintain physical fitness, including: ? Strength. ? Flexibility. Contact a health care provider if: ??? Your symptoms do not get better with home care. ??? Your symptoms get worse with home care. This information is not intended to replace advice given to you by your health care provider. Make sure you discuss any questions you have with your health care provider. Document Released: 03/22/2006 Document Revised: 11/24/2016 Document Reviewed: 02/28/2016 [employer] Patient Education ? 2019 [employer]. documented in this encounter Plan of Treatment Not on file documented as of this encounter Visit Diagnoses Not on filedocumented in this encounter Care Teams Tool Carrier Relationship Specialty Start Date End Date Juan José Kendall MD [address] [facility] [address] [place] [id number] PCP - General Family Medicine 12/25/22 Juan José Kendall MD [address] [facility] [address] [place] [id number] Referring Physician Family Medicine 12/25/22 documented as of this encounter
--- OUTSIDE RECORDS SUMMARY | 2024-03-11 09:13 | XMS_ITS | Encounter Summary ---
Author Organization [facility] [employer] Address [address] [place] [address] Care Team Providers Care Headmaster/Mistress Name Role Phone Unavailable Primary Care Provider Unavailabl e Encounter Details Date Type Department Care Team (Late st Contact Info) Description 02/01/2019 Historic Encounter [address] [address] Provider, [facility] Historical Social History Tobacco Use Types Packs/Day [...] Procedure Name Priority Date/Time Associated Diagnosis Comments RED BLOOD CELL PRODUCT ORDER ([facility] DATA CONV) Routine 02/01/2019 5:59 AM EDT documented in this encounter Results * RED BLOOD CELL PRODUCT ORDER ([facility] DATA CONV) (02/01/2019 5:59 AM EDT) RBC Product Ready RBC Ready 02/01/2019 11:16 AM EDT #of Units 2 02/01/2019 10:00 AM EDT Date of Transfusion/Canela rg? 02/01/2019 02/01/2019 10:00 AM EDT Blood 02/01/2019 5:59 AM EDT 02/01/2019 10:46 AM EDT [facility] Historical Provider LAB BLOOD ORDERABLES Fi nal Result [facility] [address] [phone] documented in this encounter Visit Diagnoses Not on filedocumented in this encounter
--- OUTSIDE RECORDS SUMMARY | 2024-03-11 09:13 | XMS_ITS | Encounter Summary ---
Author Organization [facility] [employer] Address [address] [place] [address] Care Team Providers Care Claims Correspondence Clerk Name Role Phone Unavailable Primary Care Provider Unavailabl e Encounter Details Date Type Department Care Team (Late st Contact Info) Description 08/05/2022 Historic Encounter [facility] [address] [place] [address] Provider, [facility] Historical Social History Tobacco Use Types [...] Procedure Name Priority Date/Time Associated Diagnosis Comments RBC PRODUCT READY ([facility] DATA CONV) Routine 02/01/2019 10:10 PM EDT RBC PRODUCT READY ([facility] DATA CONV) Routine 09/03/2018 5:04 AM EDT documented in this encounter Results * RBC PRODUCT READY ([facility] DATA CONV) (02/01/2019 10:10 PM EDT) Narrative [facility] - 02/01/2019 10:10 PM EDT Ordered secondary to lab resulting the product is ready. [facility] Historical Provider LAB BLOOD ORDERABLES Fi nal Result [facility] [address] [phone] * RBC PRODUCT READY ([facility] DATA CONV) (09/03/2018 5:04 AM EDT) Narrative [facility] - 09/03/2018 5:04 AM EDT Ordered secondary to lab resulting the product is ready. [facility] Historical Provider LAB BLOOD ORDERABLES Fi nal Result [facility] [address] [phone] documented in this encounter Visit Diagnoses Not on filedocumented in this encounter
--- OUTSIDE RECORDS SUMMARY | 2024-03-11 09:13 | XMS_ITS | Encounter Summary ---
Author Organization [employer] Address [address] [place] [address] Care Team Providers Care Tanning Wheel Filler Name Role Phone Juan José Kendall MD Primary Care Provider + [phone] Juan José Kendall MD Unavailable [phone] Encounter Details Date Type Department Care Team (Late st Contact Info) Description 02/02/2019 Transcribed Document [facility] [place] Family Medicine [address] [place] [address] ProviderLaurie MD [address] [place] [address] Social History Tobacco Use Types Packs/Day Years Used Date Smoking Tobacco: Never Assessed Comments Unknown Sex and Gender Information Value Date Recorded Sex Assigned at Not on file Legal Sex Female 2:23 PM CDT Gender Identity Not on file Sexual Orientation Not on file documented as of this encounter Miscellaneous Notes * Cerner Conversion Note - Laurie ProviderMD - 02/02/2019 3:38 [place] [address] TRUDI BLAIR :1955 Visit Time:02/01/2019 Your Visit Summary Your Care Team Admitting Physician - JONG SANTACRUZ MD-JONES ARIAS MD-INT Attending Physician - JONG SANTACRUZ MD-ORT Primary Care Physician - JUAN JOSÉ KENDALL (REF)MD Referring Physician - BALTHROP, JONG E, MD-ORT Your Diagnosis Acute blood loss anemiaOn chronic, postoperative Status post ruthie of 2 units of packed RBCs At risk for sleep apnea GERD (gastroesophageal reflux disease) History of left knee MRSA infection History of obstructive sleep apnea HTN (hypertension) Hypercholesterolemia Obesity (BMI 30.0-34.9) 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 - Not met Discharge Vitals Temperature 37.7 ??C Heart Rate (Monitored) 87 Respiratory Rate 16 Blood Pressure 127/67 What to do next Instructions From Your Care Team Discharge Follow Up Instructions: , Order Comment: Follow-up with PCP as scheduled or PRN Activity: Discharge Activity: Activity as tolerated Diet: Discharge Diet: Resume usual diet as tolerated Follow-Up Appointments Follow Up with JONG SANTACRUZ MD-ORT When 02/14/2019 11:00 AM EST Comments Appointment has been made Where: [address] [facility] [address] [place] [address]- Medications What How Much When Instructions Next Dose acetaminophen-oxyCODONE (Percocet 7.5/ 325 oral tablet) 1 Tablet(s) Oral Every 4 Hours as needed for for pain Duration: 10 Day(s) 1 by mouth every 4-6 hours when necessary as needed aspirin (aspirin 325 mg oral tablet) 1 Tablet(s) Oral Two Times A Day Duration: 30 Day(s) for DVT prophylaxis to be started after finishing the course of his Xarelto 10 mg oral daily ??7 days Printed Prescription start on 02/10/2019 rivaroxaban (Xarelto 10 mg oral tablet) 1 Tablet(s) Oral Every Day Duration: 7 Day(s) Printed Prescription start on 02/03/2019 atorvastatin (atorvastatin 20 mg oral tablet) 1 Tablet(s) Oral At Bedtime tonight metoclopramide (metoclopramide 10 mg oral tablet) 1 Tablet(s) Oral Two Times A Day tonight metoprolol (Metoprolol Succinate ER 50 mg oral tablet, extended release) 1 Tablet(s) Oral Every Day tomorrow am mirabegron (Myrbetriq 25 mg oral tablet, extended release) 1 Tablet(s) Oral At Bedtime tonight pantoprazole (pantoprazole 40 mg oral delayed release tablet) 1 Tablet(s) Oral Every Day tomorrow am potassium chloride (potassium chloride 20 mEq oral tablet, extended release) 1 Tablet(s) Oral Two Times A Day tonight topiramate (topiramate 50 mg oral tablet) 1 Tablet(s) Oral Two Times A Day tonight traZODone (traZODone 50 mg oral tablet) 1 Tablet(s) Oral At Bedtime as needed for Insomnia as needed Take your medications faithfully. Do NOT skip medication. Do NOT stop taking medications without the direction of a physician. Carry a list of your medications with you at all times, and take this medication list with you to your first follow up visit. Report any side effects. Avoid herbal remedies unless discussed with your physician. As part of your treatment plan, your physician may have prescribed a limited course of a controlled substance. This medication may be given to help people with moderate or severe pain or for other medical conditions, but there are risks involved with treatment. Common side effects may include nausea, constipation, drowsiness, sweating, itching, dry mouth, and rash. More serious side effects may include cognitive and motor impairment, like problems with thinking, concentrating, alertness, and movement (e.g. slowed reflexes), and driving and operating heavy machinery can be dangerous. It is important for you to talk to your physician if you have these side effects or questions. These controlled substances can produce physical dependence and be habit-forming if taken for an extended period of time, which means that the body has gotten used to them and may experience withdrawal symptoms if they are abruptly stopped. Withdrawal symptoms can include runny nose, sweating, goose bumps, diarrhea, abdominal cramping, rapid heartbeat, difficulty sleeping, and nervousness. Please dispose of unused and medications per your retail pharmacy guidance. Allergies Biaxin (Acid reflux) Immunizations This Visit No Immunizations Found Education Materials Patellar Tendon Tear A patellar tendon tear, [...] have a weakened tendon from: ? Long-lasting jumper???s knee (patellar tendinitis). ? Medical conditions like [...] Leave the ice on for 20 minutes, 2???3 times a day. ??? Move your toes often to avoid stiffness and to lessen swelling. ??? Raise (elevate) your knee to the level of your heart or above that level while you are sitting or lying down. ??? Take nfwj-rdg-mlhoxab and prescription medicines only as told by [...] that you can. Use crutches or a walker as told by your health care provider. ??? Do not use any tobacco products, such as cigarettes, chewing tobacco, and e-cigarettes. Tobacco can delay healing. If you need help quitting, ask your health care provider. ??? Keep all follow-up visits as told by your health care provider. This is important. * Do not take baths, swuim, or use hot tub until after post op visit. * Use incentive spirometer 10 times an hour while awake for 2 weeks to prevent pneumonia. * Keep hard cast dry. Do not remove immobilizer until the Doctor says so. * DVT PROPHYLAXIS: Take Xarelto 10mg daily for 7 days starting from 02/03/2019 then take Aspirin 325mg twice a day starting from 02/10/2019. How is this prevented? Give your body [...] 03/22/2006 Document Revised: 11/24/2016 Document Reviewed: 02/28/2016 [employer] Patient Education ?? 2019 [employer]. Hand Washing Germs like bacteria, viruses, and [...] ? Using the bathroom. ? Using household cullet washer or poisonous chemicals. ? Touching or taking [...] 03/04/2009 Document Revised: 08/27/2016 Document Reviewed: 08/17/2014 [employer] Patient Education ?? 2018 [employer]. acetaminophen and oxycodone (a SEET a MIN oh fen and OX i KOE done) Endocet 10/325, Endocet 2.5/325, Endocet 5/325, Endocet 7.5/325, Nalocet, Percocet 10/325, Percocet 2.5/325, Percocet 5/325, Percocet 7.5/325, Primalev, Primlev, Roxicet, Xartemis XR What is the most important information I should know about acetaminophen and oxycodone? MISUSE OF OPIOID MEDICINE CAN CAUSE ADDICTION, OVERDOSE, OR . Keep the medication in a place where others cannot get to it. An overdose of acetaminophen can damage your liver or cause . Call your doctor at once if you have pain in your upper stomach, loss of appetite, dark urine, or jaundice (yellowing of your skin or eyes). Taking opioid medicine during may cause life-threatening withdrawal symptoms in the . Fatal side effects can occur if you use opioid medicine with alcohol, or with other drugs that cause drowsiness or slow your breathing. Stop taking this medicine and call your doctor right away if you have skin redness or a rash that spreads and causes blistering and peeling. What is acetaminophen and oxycodone? Oxycodone is an opioid pain medication, sometimes called a narcotic. Acetaminophen is a less potent pain reliever that increases the effects of oxycodone. Acetaminophen and oxycodone is a combination medicine used to relieve moderate to severe pain. Acetaminophen and oxycodone may also be used for purposes not listed in this medication guide. What should I discuss with my healthcare provider before taking acetaminophen and oxycodone? You should not use this medicine if you are allergic to acetaminophen or oxycodone, or if you have: ?? severe asthma or breathing problems; or ?? a blockage in your stomach or intestines. Tell your doctor if you have ever had: ?? liver disease; ?? a drug or alcohol addiction; ?? kidney disease; ?? a head injury or seizures; ?? urination problems; or ?? problems with your thyroid, pancreas, or gallbladder. If you use opioid medicine while you are , your baby could become dependent on the drug. This can cause life-threatening withdrawal symptoms in the baby after it is born. Babies born dependent on opioids may need medical treatment for several weeks. Do not breast-feed. This medicine can pass into breast milk and cause drowsiness, breathing problems, or in a nursing baby. How should I take acetaminophen and oxycodone? Follow all directions on your prescription label. Never take this medicine in larger amounts, or for longer than prescribed. An overdose can damage your liver or cause . Tell your doctor if the medicine seems to stop working as well in relieving your pain. Never share this medicine with another person, especially someone with a history of drug abuse or addiction. MISUSE CAN CAUSE ADDICTION, OVERDOSE, OR . Keep the medicine in a place where others cannot get to it. Selling or giving away acetaminophen and oxycodone is against the law. Measure liquid medicine carefully. Use the dosing syringe provided, or use a medicine dose-measuring device (not a kitchen spoon). If you need surgery or medical tests, tell the doctor ahead of time that you are using this medicine. You should not stop using this medicine suddenly. Follow your doctor's instructions about tapering your dose. Store at room temperature away from moisture and heat. Keep track of your medicine. You should be aware if anyone is using it improperly or without a prescription. Do not keep leftover opioid medication. Just one dose can cause in someone using this medicine accidentally or improperly. Ask your pharmacist where to locate a drug take-back disposal program. If there is no take-back program, flush the unused medicine down the toilet. What happens if I miss a dose? Since this medicine is used for pain, you are not likely to miss a dose. Skip any missed dose if it is almost time for your next dose. Do not use two doses at one time. What happens if I overdose? Seek emergency medical attention or call the Poison Help line at . An overdose of acetaminophen and oxycodone can be fatal. The first signs of an acetaminophen overdose include loss of appetite, nausea, vomiting, stomach pain, sweating, and confusion or weakness. Later symptoms may include pain in your upper stomach, dark urine, and yellowing of your skin or the whites of your eyes. Overdose can also cause severe muscle weakness, pinpoint pupils, very slow breathing, extreme drowsiness, or coma. What should I avoid while taking acetaminophen and oxycodone? Avoid driving or operating machinery until you know how this medicine will affect you. Dizziness or drowsiness can cause falls, accidents, or severe injuries. Do not drink alcohol. Dangerous side effects or could occur. Ask a doctor or pharmacist before using any other medicine that may contain acetaminophen (sometimes abbreviated as APAP). Taking certain medications together can lead to a fatal overdose. What are the possible side effects of acetaminophen and oxycodone? Get emergency medical help if you have signs of an allergic reaction: hives; difficulty breathing; swelling of your face, lips, tongue, or throat. Opioid medicine can slow or stop your breathing, and may occur. A person caring for you should seek emergency medical attention if you have slow breathing with long pauses, blue colored lips, or if you are hard to wake up. In rare cases, acetaminophen may cause a severe skin reaction that can be fatal. This could occur even if you have taken acetaminophen in the past and had no reaction. Stop taking this medicine and call your doctor right away if you have skin redness or a rash that spreads and causes blistering and peeling. Call your doctor at once if you have: ?? noisy breathing, sighing, shallow breathing; ?? a light-headed feeling, like you might pass out; ?? weakness, tiredness, fever, unusual bruising or bleeding; ?? confusion, unusual thoughts or behavior; ?? problems with urination; ?? liver problems--nausea, upper stomach pain, tiredness, loss of appetite, dark urine, willie-colored stools, jaundice (yellowing of the skin or eyes); or ?? low cortisol levels-- nausea, vomiting, loss of appetite, dizziness, worsening tiredness or weakness. Seek medical attention right away if you have symptoms of serotonin syndrome, such as: agitation, hallucinations, fever, sweating, shivering, fast heart rate, muscle stiffness, twitching, loss of coordination, nausea, vomiting, or diarrhea. Serious side effects may be more likely in older adults and those who are overweight, malnourished, or debilitated. Long-term use of opioid medication may affect fertility (ability to have children) in men or women. It is not known whether opioid effects on fertility are permanent. Common side effects include: ?? dizziness, drowsiness, feeling tired; ?? feelings of extreme happiness or sadness; ?? nausea, vomiting, stomach pain; ?? constipation; or ?? headache. This is not a complete list of side effects and others may occur. Call your doctor for medical advice about side effects. You may report side effects to FDA at 4-582-EHR-5356. What other drugs will affect acetaminophen and oxycodone? You may have breathing problems or withdrawal symptoms if you start or stop taking certain other medicines. Tell your doctor if you also use an antibiotic, antifungal medication, heart or blood pressure medication, seizure medication, or medicine to treat HIV or hepatitis C. Opioid medication can interact with many other drugs and cause dangerous side effects or . Be sure your doctor knows if you also use: ?? cold or allergy medicines, bronchodilator asthma/COPD medication, or a diuretic ('water pill'); ?? medicines for motion sickness, irritable bowel syndrome, or overactive bladder; ?? other narcotic medications--opioid pain medicine or prescription cough medicine; ?? a sedative like Valium--diazepam, alprazolam, lorazepam, Xanax, Klonopin, Versed, and others; ?? drugs that make you sleepy or slow your breathing--a sleeping pill, muscle relaxer, medicine to treat mood disorders or mental illness; ?? drugs that affect serotonin levels in your body--a stimulant, or medicine for depression, Parkinson's disease, migraine headaches, serious infections, or nausea and vomiting. This list is not complete. Other drugs may affect acetaminophen and oxycodone, including prescription and syny-btb-nmnbqbv medicines, vitamins, and herbal products. Not all possible interactions are listed here. Where can I get more information? Your doctor or pharmacist can provide more information about acetaminophen and oxycodone. Remember, keep this and all other medicines out of the reach of children, never share your medicines with others, and use this medication only for the indication prescribed. Every effort has been made to ensure that the information provided by [employer]. ('[employer]') is accurate, up-to-date, and complete, but no guarantee is made to that effect. Drug information contained herein may be time sensitive. [employer] information has been compiled for use by healthcare practitioners and consumers in the [place] and therefore [employer] does not warrant that uses outside of the [place] are appropriate, unless specifically indicated otherwise. [employer]'s drug information does not endorse drugs, diagnose patients or recommend therapy. [employer] drug information is an informational resource designed to assist licensed healthcare practitioners in caring for their patients and/or to serve consumers viewing this service as a supplement to, and not a substitute for, the expertise, skill, knowledge and judgment of healthcare practitioners. The absence of a warning for a given drug or drug combination in no way should be construed to indicate that the drug or drug combination is safe, effective or appropriate for any given patient. [employer] does not assume any responsibility for any aspect of healthcare administered with the aid of information [employer] provides. The information contained herein is not intended to cover all possible uses, directions, precautions, warnings, drug interactions, allergic reactions, or adverse effects. If you have questions about the drugs you are taking, check with your doctor, nurse or pharmacist. Copyright 0258-6414 [employer]. Version: 18.02. Revision Date: 03/02/2018. rivaroxaban (FARZAD a STEVE a ban) Xarelto What is the most important information I should know about rivaroxaban? Do not stop taking rivaroxaban without first talking to your doctor. Stopping suddenly can increase your risk of blood clot or stroke. Call your doctor at once if you have signs of bleeding such as: headaches, feeling very weak or dizzy, bleeding gums, nosebleeds, heavy menstrual periods or abnormal vaginal bleeding, blood in your urine, bloody or tarry stools, coughing up blood or vomit that looks like coffee grounds. Many other drugs can increase your risk of bleeding when used with rivaroxaban. Tell your doctor about all medicines you have recently used. Rivaroxaban can cause a very serious blood clot around your spinal cord if you undergo a spinal tap or receive spinal anesthesia (epidural). Tell any doctor who treats you that you are taking rivaroxaban. What is rivaroxaban? Rivaroxaban is used to treat or prevent blood clots in the legs (deep vein thrombosis) or in the lungs (pulmonary embolism). These types of blood clots can occur after knee or hip replacement surgery. Rivaroxaban is sometimes used to lower your risk of a blood clot coming back after you have received treatment for blood clots for at least 6 months. Rivaroxaban is also used in people with atrial fibrillation (a heart rhythm disorder) to lower the risk of stroke caused by a blood clot. Rivaroxaban is also given together with aspirin to lower the risk of stroke, heart attack, or other serious heart problems in people with coronary artery disease (decreased blood flow to the heart) or peripheral artery disease (decreased blood flow to the legs). Rivaroxaban may also be used for purposes not listed in this medication guide. What should I discuss with my healthcare provider before taking rivaroxaban? You should not use rivaroxaban if you are allergic to it, or if you have active or uncontrolled bleeding. Rivaroxaban can cause a very serious blood clot around your spinal cord if you undergo a spinal tap or receive spinal anesthesia (epidural). This type of blood clot could cause long-term paralysis, and may be more likely to occur if: ?? you have a genetic spinal defect; ?? you have a spinal catheter in place; ?? you have a history of spinal surgery or repeated spinal taps; ?? you have recently had a spinal tap or epidural anesthesia; ?? you are taking an NSAID--Advil, Aleve, Motrin, and others; or ?? you are using other medicines to treat or prevent blood clots. Rivaroxaban may cause you to bleed more easily, especially if you have: ?? a bleeding disorder that is inherited or caused by disease; ?? hemorrhagic stroke; ?? uncontrolled high blood pressure; ?? stomach or intestinal bleeding or ulcer; or ?? if you take certain medicines such as aspirin, enoxaparin, heparin, warfarin (Coumadin, Jantoven), clopidogrel (Plavix), or certain antidepressants. Tell your doctor if you have ever had: ?? an artificial heart valve; or ?? liver or kidney disease. Taking rivaroxaban during may cause bleeding in the mother or the unborn baby. Tell your doctor if you are or plan to become . It may not be safe to breast-feed a baby while you are using this medicine. Ask your doctor about any risks. How should I take rivaroxaban? Follow all directions on your prescription label and read all medication guides or instruction sheets. Your doctor may occasionally change your dose. Use the medicine exactly as directed. The number of times you take rivaroxaban each day will depend on the reason you are using this medication. For some conditions, rivaroxaban should be taken with food. Whether you take the medicine with or without food may also depend on the tablet strength you take. Follow your doctor's dosing instructions very carefully. Tell your doctor if you have trouble swallowing a rivaroxaban tablet. Tell any doctor who treats you that you are using rivaroxaban. If you need surgery or dental work, tell the surgeon or dentist ahead of time that you are using this medication. If you need anesthesia for a medical procedure or surgery, you may need to stop using rivaroxaban for a short time. Do not change your dose or stop taking this medication without first talking to your doctor. Stopping suddenly can increase your risk of blood clot or stroke. Store at room temperature away from moisture and heat. What happens if I miss a dose? If you take rivaroxaban 1 time each day: Take the medicine as soon as you remember, and then go back to your regular schedule. Do not take two doses at one time. If you take rivaroxaban 2 times each day: Take the missed dose on the same day you remember it. You may take 2 doses at the same time to make up a missed dose. Get your prescription refilled before you run out of medicine completely. What happens if I overdose? Seek emergency medical attention or call the Poison Help line at . Overdose may cause excessive bleeding. What should I avoid while taking rivaroxaban? Avoid activities that may increase your risk of bleeding or injury. Use extra care to prevent bleeding while shaving or brushing your teeth. What are the possible side effects of rivaroxaban? Get emergency medical help if you have signs of an allergic reaction: hives; difficult breathing; swelling of your face, lips, tongue, or throat. Also seek emergency medical attention if you have symptoms of a spinal blood clot: back pain, numbness or muscle weakness in your lower body, or loss of bladder or bowel control. Rivaroxaban can cause you to bleed more easily. Call your doctor at once if you have signs of bleeding such as: ?? easy bruising or bleeding (nosebleeds, bleeding gums, heavy menstrual bleeding); ?? pain, swelling, new drainage, or excessive bleeding from a wound or where a needle was injected in your skin; ?? any bleeding that will not stop; ?? headaches, dizziness, weakness, feeling like you might pass out; ?? urine that looks red, pink, or brown; or ?? bloody or tarry stools, coughing up blood or vomit that looks like coffee grounds. Bleeding is the most common side effect of rivaroxaban. This is not a complete list of side effects and others may occur. Call your doctor for medical advice about side effects. You may report side effects to FDA at 5-606-NJN-7653. What other drugs will affect rivaroxaban? Sometimes it is not safe to use certain medications at the same time. Some drugs can affect your blood levels of other drugs you take, which may increase side effects or make the medications less effective. Other drugs may affect rivaroxaban, including prescription and mqov-dhs-ghyanoo medicines, vitamins, and herbal products. Tell your doctor about all your current medicines and any medicine you start or stop using. Where can I get more information? Your pharmacist can provide more information about rivaroxaban. Remember, keep this and all other medicines out of the reach of children, never share your medicines with others, and use this medication only for the indication prescribed. Every effort has been made to ensure that the information provided by [employer]. ('[employer]') is accurate, up-to-date, and complete, but no guarantee is made to that effect. Drug information contained herein may be time sensitive. [employer] information has been compiled for use by healthcare practitioners and consumers in the [place] and therefore [employer] does not warrant that uses outside of the [place] are appropriate, unless specifically indicated otherwise. [employer] drug information does not endorse drugs, diagnose patients or recommend therapy. [employer] drug information is an informational resource designed to assist licensed healthcare practitioners in caring for their patients and/or to serve consumers viewing this service as a supplement to, and not a substitute for, the expertise, skill, knowledge and judgment of healthcare practitioners. The absence of a warning for a given drug or drug combination in no way should be construed to indicate that the drug or drug combination is safe, effective or appropriate for any given patient. [employer] does not assume any responsibility for any aspect of healthcare administered with the aid of information [employer] provides. The information contained herein is not intended to cover all possible uses, directions, precautions, warnings, drug interactions, allergic reactions, or adverse effects. If you have questions about the drugs you are taking, check with your doctor, nurse or pharmacist. Copyright 3891-1741 [employer]. Version: 6.02. Revision Date: 07/21/2018. aspirin (oral) ( pir in) Arthritis Pain, Aspir 81, Aspir-Low, Phylicia Childrens Aspirin, Durlaza, Ecotrin, Ecpirin, Fasprin, Halfprin, Miniprin What is the most important information I should know about aspirin? You should not use aspirin if you have a bleeding disorder such as hemophilia, a recent history of stomach or intestinal bleeding, or if you are allergic to an NSAID (non-steroidal anti-inflammatory drug). Aspirin can cause Heber's syndrome, a serious and sometimes fatal condition in children. What is aspirin? Aspirin is a salicylate (sm-SUW-lf-ate). It works by reducing substances in the body that cause pain, fever, and inflammation. Aspirin is used to treat pain, and reduce fever or inflammation. Aspirin is sometimes used to treat or prevent heart attacks, strokes, and chest pain (angina). Aspirin should be used for cardiovascular conditions only under the supervision of a doctor. Aspirin may also be used for purposes not listed in this medication guide. What should I discuss with my healthcare provider before taking aspirin? Do not give this medicine to a child or teenager with a fever, flu symptoms, or chicken pox. Aspirin can cause Heber's syndrome, a serious and sometimes fatal condition in children. You should not use aspirin if you are allergic to it, or if you have: ?? a recent history of stomach or intestinal bleeding; ?? a bleeding disorder such as hemophilia; or ?? if you have ever had an asthma attack or severe allergic reaction after taking aspirin or an NSAID (non-steroidal anti-inflammatory drug). Tell your doctor if you have ever had: ?? asthma or seasonal allergies; ?? stomach ulcers; ?? liver disease; ?? kidney disease; ?? a bleeding or blood clotting disorder; ?? gout; or ?? heart disease, high blood pressure, or congestive heart failure. Taking aspirin during late may cause bleeding in the mother or the baby during delivery. Tell your doctor if you are or plan to become . You should not breast-feed while using this medicine. How should I take aspirin? Use exactly as directed on the label, or as prescribed by your doctor. Take with food if aspirin upsets your stomach. Do not crush, chew, break, or open an enteric-coated or delayed-release pill. Swallow it whole. The chewable tablet form of aspirin must be chewed before swallowing. If you use the orally disintegrating tablet or the dispersible tablet, follow all dosing instructions provided with your medicine. If you need surgery, tell your surgeon you currently use this medicine. You may need to stop for a short time. Do not take this medicine if you smell a strong vinegar odor in the aspirin bottle. The medicine may no longer be effective. Store at room temperature away from moisture and heat. What happens if I miss a dose? Since aspirin is used when needed, you may not be on a dosing schedule. Skip any missed dose if it's almost time for your next dose. Do not use two doses at one time. What happens if I overdose? Seek emergency medical attention or call the Poison Help line at . Overdose symptoms may include temporary hearing loss, seizure (convulsions), or coma. What should I avoid while taking aspirin? Avoid alcohol. Heavy drinking can increase your risk of stomach bleeding. If you are taking aspirin to prevent heart attack or stroke, avoid also taking ibuprofen (Advil, Motrin). Ibuprofen may make aspirin less effective. If you must use both medications, take the ibuprofen at least 8 hours before or 30 minutes after you take the aspirin (non-enteric coated form). Ask a doctor or pharmacist before using other medicines for pain, fever, swelling, or cold/flu symptoms. They may contain ingredients similar to aspirin (such as magnesium salicylate, ibuprofen, ketoprofen, or naproxen). What are the possible side effects of aspirin? Get emergency medical help if you have signs of an allergic reaction: hives; difficult breathing; swelling of your face, lips, tongue, or throat. Stop using aspirin and call your doctor at once if you have: ?? ringing in your ears, confusion, hallucinations, rapid breathing, seizure (convulsions); ?? severe nausea, vomiting, or stomach pain; ?? bloody or tarry stools, coughing up blood or vomit that looks like coffee grounds; ?? fever lasting longer than 3 days; or ?? swelling, or pain lasting longer than 10 days. Common side effects may include: ?? upset stomach, heartburn; ?? drowsiness; or ?? mild headache. This is not a complete list of side effects and others may occur. Call your doctor for medical advice about side effects. You may report side effects to FDA at 7-355-WMN-6105. What other drugs will affect aspirin? Ask your doctor before using aspirin if you take an antidepressant. Taking certain antidepressants with aspirin may cause you to bruise or bleed easily. Ask a doctor or pharmacist before using aspirin with any other medications, especially: ?? a blood thinner (warfarin, Coumadin, Jantoven), or other medication used to prevent blood clots; or ?? other salicylates such as Nuprin Backache Caplet, Kaopectate, KneeRelief, Pamprin Cramp Formula, Pepto-Bismol, Tricosal, Trilisate, and others. This list is not complete. Other drugs may affect aspirin, including prescription and yvsr-nui-jxznppz medicines, vitamins, and herbal products. Not all possible drug interactions are listed here. Where can I get more information? Your pharmacist can provide more information about aspirin. Remember, keep this and all other medicines out of the reach of children, never share your medicines with others, and use this medication only for the indication prescribed. Every effort has been made to ensure that the information provided by [employer]. ('[employer]') is accurate, up-to-date, and complete, but no guarantee is made to that effect. Drug information contained herein may be time sensitive. [employer] information has been compiled for use by healthcare practitioners and consumers in the [place] and therefore [employer] does not warrant that uses outside of the [place] are appropriate, unless specifically indicated otherwise. [employer] drug information does not endorse drugs, diagnose patients or recommend therapy. [employer] drug information is an informational resource designed to assist licensed healthcare practitioners in caring for their patients and/or to serve consumers viewing this service as a supplement to, and not a substitute for, the expertise, skill, knowledge and judgment of healthcare practitioners. The absence of a warning for a given drug or drug combination in no way should be construed to indicate that the drug or drug combination is safe, effective or appropriate for any given patient. [employer] does not assume any responsibility for any aspect of healthcare administered with the aid of information [employer] provides. The information contained herein is not intended to cover all possible uses, directions, precautions, warnings, drug interactions, allergic reactions, or adverse effects. If you have questions about the drugs you are taking, check with your doctor, nurse or pharmacist. Copyright 9394-6634 [employer]. Version: 15.02. Revision Date: 07/05/2017. Emergency Awareness and Preventative Care STROKE is an EMERGENCY Every Minute Counts Act FAST and Check for these signs: FACE Does the face look uneven? ARM Does one arm drift down? SPEECH Does their speech sound strange? TIME Call at any sign of stroke Stroke Risk Factors Atrial Fibrillation (irregular heartbeat) Diabetes Family history of stroke Heart Disease Heavy alcohol use High Blood Pressure High Cholesterol Physical inactivity and obesity Smoking Cigarette Smoking The facts are clear, cigarette smoking will shorten your life. Smoking can cause many illnesses along the way. As a healthcare provider, we recommend that you stop smoking. Assistance with quitting is available by contacting 9-877-NAYR-NOW. This is a free resource providing counseling, support, and referral. Or you may contact your personal physician. National Suicide Prevention Lifeline: The National Suicide Prevention Lifeline is a national network of local crisis centers that provides free and confidential emotional support to people in suicidal crisis or emotional distress 24 hours a day, 7 days a week. Don't Wait! Stop a Heart Attack Before it Starts What is a heart attack? A heart attack is damage or to a part of the heart from severely decreased or lack of blood flow to the heart. Over time, arteries can become narrow from the buildup of fat and cholesterol, which is called plaque. The plaque can rupture causing a blood clot to form. When the blood clot forms, the artery can become severely narrowed or completely blocked, causing a heart attack. Heart attack is the leading cause of in the [place]. 85% of muscle damage occurs within the first 2 hours. Delay in the recognition of heart attack symptoms increases the chances of . Know the early symptoms of a heart attack: Nausea Feeling of fullness in chest Jaw Pain Pain that travels down one or both arms Fatigue/being tired Anxiety Back Pain Chest pressure, squeezing, or discomfort Shortness of breath Sweating, or a cold sweat Feeling of impending doom There are unusual signs of a heart attack, too! Women, the elderly, and diabetics may present with atypical symptoms: Fainting/dizziness Weakness Confusion Risk Factors for a Heart Attack Some heart disease risk factors, such as age and family history, cannot be changed. Others, like smoking and lack of exercise, can be changed. Smoking High Cholesterol High Blood Pressure Family History Obesity Age Gender (Males are at higher risk) Lack of Exercise Diabetes Diet Stress Excessive Alcohol Intake If you or someone you know is experiencing the signs and symptoms of a heart attack, DON???T DELAY. Call immediately and seek help. If someone collapses, perform CPR! Do not attempt to drive if you are having symptoms of heart attack. Hands-Only CPR Why Hands-Only CPR? Hands-Only CPR has been shown to be as effective as conventional CPR for cardiac arrests that occur outside of a hospital. Survival depends on immediately receiving CPR from someone nearby. How do you perform Hands-Only CPR? There are two easy steps: Call if you see a teen or adult collapse Push hard and fast in the center of the chest at a beat of 100 beats per minute. Save a life! 4 WAYS TO GET AHEAD OF SEPSIS SEPSIS is a MEDICAL EMERGENCY. Time matters! Infections put you and your family at risk for a life-threatening condition called sepsis. Sepsis is the body's extreme response to an infection. It is life-threatening, and without timely treatment, sepsis can rapidly lead to tissue damage, organ failure, and . Sepsis happens when an infection you already have-in your skin, lungs, urinary tract or somewhere else-triggers a chain reaction throughout your body. 1 PREVENT INFECTIONS Take good care of chronic conditions. Talk to your doctor about getting the recommended vaccines. 2 PRACTICE GOOD HYGIENE Wash your hands frequently. Keep cuts or open sores clean and covered until they are healed. 3 KNOW THE SYMPTOMS Confusion or disorientation Shortness of breath High heart rate Fever, shivering, or feeling very cold Extreme pain or discomfort Clammy or sweaty skin 4 ACT FAST Get medical care IMMEDIATELY if you suspect sepsis or if you have an infection that is not getting better or is getting worse. To learn more about sepsis and how to prevent infections, visit www.cdc.gov/sepsis. Test Results Laboratory or Other Results This Visit (last charted value for your 02/01/2019 visit) Hematology 02/02/2019 5:43 AM Hct: 30.3 % -- Normal range between ( 34.1 and 44.9 ) Hgb: 9.5 Gram/dL -- Normal range between ( 11.2 and 15.7 ) 02/01/2019 4:18 AM WBC: 8.3 K/uL -- Normal range between ( 3.9 and 10.0 ) RBC: 2.58 Million/uL -- Normal range between ( 3.93 and 5.22 ) Platelet Count: 251 K/uL -- Normal range between ( 163 and 369 ) MCH: 29.5 pg -- Normal range between ( 25.6 and 32.2 ) MCHC: 31.3 Gram/dL -- Normal range between ( 32.3 and 36.5 ) MCV: 94.2 fL -- Normal range between ( 79.0 and 94.8 ) Slide Review: No Eos %: 1.0 % -- Normal range between ( 1.0 and 7.0 ) Garza #: 1.20 K/uL -- Normal range between ( 0.24 and 0.82 ) Eos #: 0.08 K/uL -- Normal range between ( 0.04 and 0.54 ) Garza %: 14.4 % -- Normal range between ( 4.7 and 12.5 ) Baso %: 0.7 % -- Normal range between ( 0.0 and 1.0 ) Baso #: 0.06 K/uL -- Normal range between ( 0.01 and 0.08 ) RDW: 15.2 % -- Normal range between ( 11.6 and 14.4 ) Neut %: 70.3 % -- Normal range between ( 34.0 and 71.0 ) Neut #: 5.86 K/uL -- Normal range between ( 1.56 and 6.13 ) Lymph %: 13.2 % -- Normal range between ( 19.3 and 53.0 ) Lymph #: 1.10 K/uL -- Normal range between ( 1.18 and 3.74 ) MPV: 11.2 fL -- Normal range between ( 9.4 and 12.4 ) IG#: 0 x10(3)/uL IG%: 0 % -- Normal range between ( 0 and 1 ) Blood Bank 02/01/2019 3:50 PM TRANSFUSED: TRANSFUSED 02/01/2019 7:16 AM RBC Product Ready: Done 02/01/2019 6:25 AM ABO/Rh: O POS Antibody Screen (Tube): Negative ABSC Crossmatch: Computer XM OK 02/01/2019 5:59 AM # of Units: 2 General Chemistry 02/01/2019 4:18 AM Creatinine Level: 1.15 mg/dL -- Normal range between ( 0.55 and 1.02 ) Sodium Level: 139 mmol/L -- Normal range between ( 136 and 146 ) Potassium Level: 3.9 mmol/L -- Normal range between ( 3.5 and 5.1 ) Chloride Level: 109 mmol/L -- Normal range between ( 102 and 112 ) Carbon Dioxide Level: 25 mmol/L -- Normal range between ( 21 and 32 ) Anion Gap: 9 -- Normal range between ( 9 and 20 ) Bilirubin Total: 0.3 mg/dL -- Normal range between ( 0.2 and 1.3 ) A/G Ratio: 0.7 -- Normal range between ( 1.1 and 2.5 ) ALT: <6 Units/Liter -- Normal range between ( 12 and 78 ) AST: 12 Units/Liter -- Normal range between ( 5 and 37 ) Globulin: 3.1 Gram/dL -- Normal range between ( 1.5 and 4.5 ) Alk Phos: 76 Units/Liter -- Normal range between ( 27 and 136 ) Bun/Creatinine: 20.9 -- Normal range between ( 8.0 and 20.0 ) Calcium Level: 8.2 mg/dL -- Normal range between ( 8.5 and 10.1 ) eGFR : 58 mL/min/1.73m2 eGFR NonAfrican: 48 mL/min/1.73m2 Glucose Level: 92 mg/dL -- Normal range between ( 74 and 106 ) Blood Urea Nitrogen: 24 mg/dL -- Normal range between ( 7 and 22 ) Protein Total: 5.3 Gram/dL -- Normal range between ( 6.4 and 8.2 ) Albumin Level: 2.2 Gram/dL -- Normal range between ( 3.4 and 5.0 ) Diagnostic Radiology 01/30/2019 5:05 PM CR Fluoro in OR: CR Fluoro in OR Patient Name:TRUDI BLAIR I have received and understand this information and was given the opportunity to ask questions. Patient/Assistant Laboratory Director Name: Patient/Assistant Laboratory Director Signature: Relationship to Patient: Clinician/Hospital Assistant Laboratory Director Signature: Date: documented in this encounter Plan of Treatment Not on file documented as of this encounter Visit Diagnoses Not on filedocumented in this encounter Care Teams Tanning Wheel Filler Relationship Specialty Start Date End Date Juan José Kendall MD [address] [facility] [address] [place] [address] PCP - General Family Medicine 12/25/22 Juan José Kendall MD [address] [facility] [address] [place] [address] Referring Physician Family Medicine 12/25/22 documented as of this encounter
--- OUTSIDE RECORDS SUMMARY | 2024-03-11 09:13 | XMS_ITS | Encounter Summary ---
Author Organization [employer] Address [address] [place] [address] Care Team Providers Care Nursing Clerk Name Role Phone Juan José Kendall MD Primary Care Provider [phone]- [phone] Juan José Kendall MD Unavailable [phone] Encounter Details Date Type Department Care Team (Late st Contact Info) Description 02/02/2019 Transcribed Document [facility] Family Medicine Counts include [address] [facility] [place] [address] ProviderLaurie MD [address] [place] [address] Social History Tobacco Use Types Packs/Day Years Used Date Smoking Tobacco: Never Assessed Comments Unknown Sex and Gender Information Value Date Recorded Sex Assigned at Not on file Legal Sex Female 2:23 PM CDT Gender Identity Not on file Sexual Orientation Not on file documented as of this encounter Miscellaneous Notes * Cerner Conversion Note - Historical ProviderMD - 02/02/2019 2:00 AM CDT Category Manager Details Entered On: 02/02/2019 0:57 EDT Performed On: 02/02/2019 2:00 EDT by Lenora Hong RN Order Details Transport Mode Order Detail : Bed (including specialty) Isolation Precautions Order Detail : Contact precautions Order Detail : 0 IV Order Detail : 1 Oxygen Order Detail : 0 Nurse Collect Order Detail : 0 Lift/Transfer : Moderate assist Central Line Order Detail : No Room Service : Not Appropriate Arterial Line : No Lenora Hong RN - 02/02/2019 0:57 EDT Electronically signed by Aleks [facility] Conversion Cytopathology Technologist Cerner at 07/24/2022 3:58 PM CDT documented in this encounter Plan of Treatment Not on file documented as of this encounter Visit Diagnoses Not on filedocumented in this encounter Care Teams Nursing Clerk Relationship Specialty Start Date End Date Juan José Kendall MD [address] [facility] [address] [place] [address] PCP - General Family Medicine 12/25/22 Juan José Kendall MD [address] [facility] [address] [place] [address] Referring Physician Family Medicine 12/25/22 documented as of this encounter
--- OUTSIDE RECORDS SUMMARY | 2024-03-11 09:13 | XMS_ITS | Encounter Summary ---
Author Organization [employer] Address [address] [facility] [place] [address] Care Team Providers Care Deck Engine Operator Name Role Phone Unavailable Primary Care Provider Unavailabl e Encounter Details Date Type Department Care Team (Late st Contact Info) Description 02/01/2019 Historic Encounter [address] [address] Provider [facility] Historical Social History Tobacco Use Types [...] Procedure Name Priority Date/Time Associated Diagnosis Comments CBC W/ AUTO DIFF ([facility] DATA CONV) Routine 02/01/2019 4:18 AM EDT documented in this encounter Results * (ABNORMAL) CBC W/ AUTO DIFF ([facility] DATA CONV) (02/01/2019 4:18 AM EDT) WBC 8.3 3.9 - 10.0 K/uL 02/01/2019 9:13 AM EDT RBC 2.58(L) 3.93 - 5.22 Million/uL 02/01/2019 9:13 AM EDT Comment: No Red Blood Cell reference ranges defined for patients with an ? Unknown? gender. Please apply existing Male/Female reference ranges as clinically indicated. Assay ?RBC Male ??0 ??Minutes ??2 ??Months ??4.8 7.1 Female ??0 ??Minutes ??2 ??Months ??4.8 7.1 Male ??2 ??Months ??12 ??Years ??4 5.5 Female ??2 ??Months ??12 ??Years ??4 5.5 Male ??12 ??Years ??150 ??Years ??4.63 6.08 Female ??12 ??Years ??150 ??Years ??3.93 5.22 Hgb 7.6(L) 11.2 - 15.7 Gram/dL 02/01/2019 9:13 AM EDT Comment: No Hemoglobin reference ranges [...] ??12 ??Years ??150 ??Years ??11.2 15.7 Hct 24.3(L) 34.1 - 44.9 % 02/01/2019 9:13 AM EDT Comment: No Hematocrit reference ranges [...] Female ??12 ??Years ??150 ??Years ??34.1 44.9 MCV 94.2 79.0 - 94.8 fL 02/01/2019 9:13 AM EDT MCH 29.5 25.6 - 32.2 pg 02/01/2019 9:13 AM EDT MCHC 31.3(L) 32.3 - 36.5 Gram/dL 02/01/2019 9:13 AM EDT RDW 15.2(H) 11.6 - 14.4 % 02/01/2019 9:13 AM EDT Platelet Count 251 163 - 369 K/uL 02/01/2019 9:13 AM EDT MPV 11.2 9.4 - 12.4 fL 02/01/2019 9:13 AM EDT Slide Review No 02/01/2019 9:26 AM EDT Blood 02/01/2019 4:18 AM EDT 02/01/2019 9:10 AM EDT Sle Historical Provider LAB BLOOD ORDERABLES Fi nal Result [facility] [address] [phone] documented in this encounter Visit Diagnoses Not on filedocumented in this encounter
--- OUTSIDE RECORDS SUMMARY | 2024-03-11 09:14 | XMS_ITS | Encounter Summary ---
Author Organization [employer] Address [address] [place] [address] Care Team Providers Care Lead Systems Analyst Name Role Phone Juan José Kendall MD Primary Care Provider +- [phone] Juan José Kendall MD Unavailable [phone] Encounter Details Date Type Department Care Team (Late st Contact Info) Description 01/30/2019 Transcribed Document [facility] [place] [address] [place] [address] ProviderLaurie MD [address] [place] [address] Social History Tobacco Use Types Packs/Day Years Used Date Smoking Tobacco: Never Assessed Comments Unknown Sex and Gender Information Value Date Recorded Sex Assigned at Not on file Legal Sex Female 2:23 PM CDT Gender Identity Not on file Sexual Orientation Not on file documented as of this encounter Miscellaneous Notes * Cerner Conversion Note - Laurie ProviderMD - 01/30/2019 2:37 PM CDT [facility] Main OR PreOp Summary Primary Physician: JONG SANTACRUZ MD-ORT Finalized Date/Time: 02/06/19 09:53:44 Pt. Name: ROSSY TRUDI KAY /Sex: 1955 Female Med Rec #: [id number] Physician: JONES HIDALGO MD-INT Financial #: [id number] Pt. Type: I Room/Bed: [facility]/ Admit/Disch: 02/01/19 14:51:00 - 02/02/19 17:03:00 [address]: [facility] PreOp Case Times Entry 1 In Preop 01/30/19 11:40:00 Ready for Holding n/a Room Patient Ready for 01/30/19 13:04:00 Surgery Patient Out of Preop 01/30/19 14:00:00 Patient Out of n/a Holding Room Last Modified By: MARYBEL BOWEN 02/06/19 09:53:42 [facility] PreOp Case Times Audit 02/06/19 09:53:42 Filling Machine Operator: RADERTAN Modifier: CATLETDD <+> 1 Patient Out of Preop 01/30/19 13:51:52 Filling Machine Operator: RADERTAN Modifier: RADERTAN <+> 1 Patient Ready for Surgery Finalized By: MARYBEL BOWEN Document Signatures Signed By: MARYBEL BOWEN 02/06/19 09:53 Electronically signed by Aleks [facility] Conversion Facial Operator Cerner at 07/24/2022 3:41 PM CDT documented in this encounter Plan of Treatment Not on file documented as of this encounter Visit Diagnoses Not on filedocumented in this encounter Care Teams Lead Systems Analyst Relationship Specialty Start Date End Date Juan José Kendall MD [address] [facility] [address] [place] [address] PCP - General Family Medicine 12/25/22 Juan José Kendall MD [address] [facility] [address] [place] [address] Referring Physician Family Medicine 12/25/22 documented as of this encounter
--- OUTSIDE RECORDS SUMMARY | 2024-03-11 09:14 | XMS_ITS | Encounter Summary ---
Author Organization [employer] Address [address] [facility] [place] [address] Care Team Providers Care Concrete Pourer Name Role Phone Juan José Kendall MD Primary Care Provider + [phone] Juan José Kendall MD Unavailable [phone] Encounter Details Date Type Department Care Team (Late st Contact Info) Description 01/31/2019 Transcribed Document [facility] [place] [address] [place] [address] ProviderLaurie MD [address] [place] [address] Social History Tobacco Use Types Packs/Day Years Used Date Smoking Tobacco: Never Assessed Comments Unknown Sex and Gender Information Value Date Recorded Sex Assigned at Not on file Legal Sex Female 2:23 PM CDT Gender Identity Not on file Sexual Orientation Not on file documented as of this encounter Miscellaneous Notes * Cerner Conversion Note - Laurie ProviderMD - 01/31/2019 5:08 PM CDT Event Note Entered On: 01/31/2019 17:08 EDT Performed On: 01/31/2019 17:08 EDT by Deborah Martinez RN Event Note Event Location : Assigned room Description of Event : agreed with previous nurse assessment. Deborah Martinez RN - 01/31/2019 17:08 EDT documented in this encounter Plan of Treatment Not on file documented as of this encounter Visit Diagnoses Not on filedocumented in this encounter Care Teams Concrete Pourer Relationship Specialty Start Date End Date Juan José Kendall MD [address] [place], [place] [address] PCP - General Family Medicine 12/25/22 Juan José Kendall MD [address] [place] [address] Referring Physician Family Medicine 12/25/22 documented as of this encounter
--- OUTSIDE RECORDS SUMMARY | 2024-03-11 09:14 | XMS_ITS | Encounter Summary ---
Author Organization [employer] Address [address] [place] [address] Care Team Providers Care Solar Development Engineer Name Role Phone Juan José Kendall MD Primary Care Provider +- [phone] Juan José Kendall MD Unavailable [phone] Encounter Details Date Type Department Care Team (Late st Contact Info) Description 01/31/2019 Transcribed Document [facility] [place] [facility] [place] [address] ProviderLaurie MD [address] [place] [address] Social History Tobacco Use Types Packs/Day Years Used Date Smoking Tobacco: Never Assessed Comments Unknown Sex and Gender Information Value Date Recorded Sex Assigned at Not on file Legal Sex Female 2:23 PM CDT Gender Identity Not on file Sexual Orientation Not on file documented as of this encounter Miscellaneous Notes * Cerner Conversion Note - Historical ProviderMD - 01/31/2019 2:00 AM CDT Patient Account Representative Details Entered On: 01/31/2019 1:08 EDT Performed On: 01/31/2019 2:00 EDT by Dayday Crump RN Order Details Transport Mode Order Detail : Bed (including specialty) Isolation Precautions Order Detail : Contact precautions Order Detail : 0 IV Order Detail : 1 Oxygen Order Detail : 0 Nurse Collect Order Detail : 0 Lift/Transfer : Moderate assist Central Line Order Detail : No Room Service : Not Appropriate Arterial Line : No Dayday Crump RN - 01/31/2019 1:08 EDT documented in this encounter Plan of Treatment Not on file documented as of this encounter Visit Diagnoses Not on filedocumented in this encounter Care Teams Solar Development Engineer Relationship Specialty Start Date End Date Juan José Kendall MD [address] [facility] [address] [place] [address] PCP - General Family Medicine 12/25/22 Juan José Kendall MD [address] [facility] [address] [place] [address] Referring Physician Family Medicine 12/25/22 documented as of this encounter
--- OUTSIDE RECORDS SUMMARY | 2024-03-11 09:14 | XMS_ITS | Encounter Summary ---
Author Organization [employer] Address [address] [facility] [place] [address] Care Team Providers Care Intelligence Engineer Name Role Phone Juan José Kendall MD Primary Care Provider +- [phone] Juan José Kendall MD Unavailable [phone] Encounter Details Date Type Department Care Team (Late st Contact Info) Description 01/31/2019 Transcribed Document [facility] [place] [address] [place] [address] ProviderLaurie MD [address] [place], [place] [address] Social History Tobacco Use Types Packs/Day Years Used Date Smoking Tobacco: Never Assessed Comments Unknown Sex and Gender Information Value Date Recorded Sex Assigned at Not on file Legal Sex Female 2:23 PM CDT Gender Identity Not on file Sexual Orientation Not on file documented as of this encounter Miscellaneous Notes * Cerner Conversion Note - Laurie ProviderMD - 01/31/2019 10:44 AM CDT Treatment Intervention, PT Entered On: 02/02/2019 11:56 EDT Performed On: 02/02/2019 10:03 EDT by VINNIE LUI PTA General Information, PT Visit Type, PT : Treatment Note Patient Orders : Order Date Order Ordering 01/30/2019 19:01 PT Evaluation and Treatment Ordered By: JONG SANTACRUZ MD-ORJasmine 01/30/2019 19:01 PT Treatment Instructions Ordered By: JONG SANTACRUZ MD-ORT 01/30/2019 19:01 PT Treatment Instructions Ordered By: JONG SANTACRUZ MD-ORT 01/31/2019 10:44 PT Additional Treatment Ordered By: LINDA BEVERLY, PT Active Diagnoses : 02/01/2019 12:00 Acute posthemorrhagic anemia 01/30/2019 12:00 Encounter for fitting and adjustment of unspecified external prosthetic device 01/30/2019 12:00 Essential (primary) hypertension 01/30/2019 12:00 Gastro-esophageal reflux disease without esophagitis 01/30/2019 12:00 Methicillin resistant Staphylococcus aureus infection, unspecified site 01/30/2019 12:00 Obesity, unspecified 01/30/2019 12:00 Other specified personal risk factors, not elsewhere classified 01/30/2019 12:00 Personal history of other diseases of the nervous system and sense organs 01/30/2019 12:00 Presence of left artificial knee joint 01/30/2019 12:00 Pure hypercholesterolemia, unspecified Therapy Diagnosis, PT : reduced mobility Admission Date : 02/01/2019 14:51 Assisted by, PT : Occupational Therapist Personal Devices : Personal Devices Glasses Assistive Devices : Assistive Devices Brace Precautions in Place : Fall prevention measures Isolation Maintained : Contact VINNIE LUI PTA - 02/02/2019 11:43 EDT General Status Patient Received Status : Long sitting in bed, Bed alarm activated, Other: SCUDS, , needs in reach Treatment Start Time : 02/02/2019 9:38 EDT Patient Left Status : Up in chair, Chair alarm activated, RN/PCT informed, All needs met and within reach, Other: SCUDS, RN/PCT Informed Comment : LISBETH muñoz pt for therapy session Treatment End Time : 02/02/2019 10:03 EDT Treatment Time : 25 Minute(s) VINNIE LUI PTA - 02/02/2019 11:43 EDT Intervention Summary BP Systolic Pre-intervention : 127 mmHg BP Diastolic Pre-intervention : 67 mmHg VINNIE LUI PTA - 02/02/2019 11:43 EDT History and Environment Living Situation, Therapy : Home Patient Lives With : Caregiver(s), Spouse Persons Providing Information : Patient Home Setup : One story Stairs : No VINNIE LUI PTA - 02/02/2019 11:43 EDT Edu Topics Physical Therapy Education Grid Bed Mobility Training : Verbalizes understanding, Returns demonstration Safety : Verbalizes understanding, Returns demonstration Transfer Training : Verbalizes understanding, Returns demonstration Use of Assistive Device : Returns demonstration, Verbalizes understanding VINNIE LUI, JACOB - 02/02/2019 11:43 EDT Plan of Care, PT PT Tx Plan/Goals Established w Patient : Yes VINNIE LUI, JACOB - 02/02/2019 11:43 EDT Nursing Home Goals Other PT LTG Grid Goal #1 Goal #2 Other : Patient will complete bed to chair transfer with RW and CGA/min assist x 1 person. Patient will complete supine to sit with leg certified scrum master and CGA. Date to Meet : 02/03/2019 EDT 02/03/2019 EDT Goal Status : Progressing, continue Progressing, continue VINNIE LUI, JACOB - 02/02/2019 11:43 EDT VINNIE ULI, JACOB - 02/02/2019 11:43 EDT Treatment Note Subjective Comment : Pt agreeable to physical therapy. Pt stated she will have other people helping besides her . Patient's Response to Treatment : Good. Additional Objective Information : - sup to sit Hilary with HOB elevated - EOB to stand with RWx Hilary x2 - stand pivot to sit on BSC with RWx Hilary - time spent on BSC and attending to pt's needs - BSC to stand with RWx Hilary x2 - BSC to turn to recliner chair ~ 5' feet total with RWx Hilary - stand to sit UIC Hilary for safe descent Ther Act: 25 minutes Assessment : Pt safely transferred with RWx but still needed assist of 2 for safety. She would be safe to d/c home with family/caregiver assistance. Progressing towards acute therapy goals. Plan for Treatment : Possible d/c home today. VINNIE LUIJACOB - 02/02/2019 11:43 EDT Pain Assessment Pain Scaled Used : FACES Pain Score Pre-Intervention : 4 VINNIE LUIJACOB - 02/02/2019 11:43 EDT Image 1 - Images currently included in the form version of this document have not been included in the text rendition version of the form. [facility] PT Charges PT Ther Activities Ea 15 Min : 2 SANIACHEMO HyltonTRUDY Finn PTA - 02/02/2019 11:43 EDT Electronically signed by Aleks [facility] Conversion Dishcloth Folder Cerner at 07/24/2022 3:55 PM CDT documented in this encounter Plan of Treatment Not on file documented as of this encounter Visit Diagnoses Not on filedocumented in this encounter Care Teams Intelligence Engineer Relationship Specialty Start Date End Date Juan José Kendall MD [address] [facility] [address] [place] [address] PCP - General Family Medicine 12/25/22 Juan José Kendall MD [address] [facility] [address] [place] [address] Referring Physician Family Medicine 12/25/22 documented as of this encounter
--- OUTSIDE RECORDS SUMMARY | 2024-03-11 09:14 | XMS_ITS | Encounter Summary ---
Author Organization [employer] Address [address] [place] [address] Care Team Providers Care Digital Media Producer Name Role Phone Juan José Kendall MD Primary Care Provider +- [phone] Juan José Kendall MD Unavailable [phone] Encounter Details Date Type Department Care Team (Late st Contact Info) Description 01/30/2019 Transcribed Document [facility] [place] Family Medicine [address] [place] [address] ProviderLaurie MD [address] [place], [place] [address] Social History Tobacco Use Types Packs/Day Years Used Date Smoking Tobacco: Never Assessed Comments Unknown Sex and Gender Information Value Date Recorded Sex Assigned at Not on file Legal Sex Female 2:23 PM CDT Gender Identity Not on file Sexual Orientation Not on file documented as of this encounter Miscellaneous Notes * Cerner Conversion Note - Laurie ProviderMD - 01/30/2019 8:00 PM CDT Pain Assessment Entered On: 01/31/2019 1:07 EDT Performed On: 01/30/2019 22:10 EDT by Dayday Crump RN Intervention Information: acetaminophen Performed by Dayday Crump RN on 01/30/2019 21:10:00 EDT acetaminophen,500mg Oral Pain Assessment Pain Assessment : Follow-up assessment Pain Scale Goal : 4 Pain Scale Used : 0-10 Scale Pain Intervention, Drug : Medicated Pain Improved by Intervention : Yes Dayday Crump RN - 01/31/2019 1:07 EDT Pain Scale Intensity : 4 Dayday Crump RN - 01/31/2019 1:07 EDT Image 4 - Images currently included in the form version of this document have not been included in the text rendition version of the form. documented in this encounter Plan of Treatment Not on file documented as of this encounter Visit Diagnoses Not on filedocumented in this encounter Care Teams Digital Media Producer Relationship Specialty Start Date End Date Juan José Kendall MD [address] [place] [address] [address] [place] [phone] PCP - General Family Medicine 12/25/22 Juan José Kendall MD [address] [place] [address] [address] [place] [phone] Referring Physician Family Medicine 12/25/22 documented as of this encounter
--- OUTSIDE RECORDS SUMMARY | 2024-03-11 09:14 | XMS_ITS | Encounter Summary ---
Author Organization [employer] Address [address] [facility] [place] [address] Care Team Providers Care Trailers And Motor Homes Salesperson Name Role Phone Juan José Kendall MD Primary Care Provider +- [phone] Juan José Kendall MD Unavailable [phone] Encounter Details Date Type Department Care Team (Late st Contact Info) Description 01/30/2019 Transcribed Document [facility] [place] [address] ProviderLaurie MD [address] [place] [address] Social History Tobacco Use Types Packs/Day Years Used Date Smoking Tobacco: Never Assessed Comments Unknown Sex and Gender Information Value Date Recorded Sex Assigned at Not on file Legal Sex Female 2:23 PM CDT Gender Identity Not on file Sexual Orientation Not on file documented as of this encounter Miscellaneous Notes * Cerner Conversion Note - Historical ProviderMD - 01/30/2019 12:44 PM CDT Pre Procedure Adult Entered On: 01/30/2019 13:00 EDT Performed On: 01/30/2019 12:44 EDT by Magnolia Lima RN Height and Weight, Clinical Dosing Height Source : Stated Height Entry Format : [place] Height, Feet : 5 ft(Converted to: 152 cm, 60 Inch) Height, Inches : 6 Inch(Converted to: 0 ft 6 Inch, 15.24 cm) Clinical Height : 167.64 cm Weight Source : Standing scale Weight Entry Format : [place] Clinical Dosing Weight : 96.82 kg Weight, Pounds : 213 lb Body Surface Area (BSA) : 2.06 m2 Body Mass Index : 34.5 kg/m2 (HI) [place] Body Weight : 59 kg Magnolia Lima RN - 01/30/2019 12:44 EDT Health Histories Smoking Status : Never (less than 100 in lifetime; none in last 30 days) Smokeless Tobacco Status : Never Magnolia Lima RN - 01/30/2019 12:44 EDT Social History (As Of: 01/30/2019 13:00:13 EDT) Tobacco: Never (less than 100 in lifetime) Smoking Status. Never Smokeless Tobacco Status. (Last Updated: 06/23/2018 15:46:55 EDT by RASHEL BARRAZA RN) Alcohol: Alcohol Use History No. (Last Updated: 06/23/2018 15:46:55 EDT by RASHEL BARRAZA RN) Substance Abuse: Drug Use Hx: No. (Last Updated: 06/23/2018 15:46:55 EDT by RASHEL BARRAZA RN) Infectious Disease History Infectious Disease History : Chicken pox/Shingles, Influenza, Measles, Mononucleosis, MRSA, Mumps Isolation Needed : Contact Fever/Chills Last 48 Hours : No Travel To Regions with Travel Advisories : No Travel Outside [place] Within Last 30 Days : No Contact With Traveler to Advisory Region : No Tuberculosis Symptoms : None Magnolia Lima RN - 01/30/2019 12:44 EDT Anesthesia/Transfusion History Family History of Anesthesia Reaction : Prior transfusion without reaction Blood Transfusion Acceptable to Patient : Yes Transfusion History : Prior anesthesia reaction Type of Anesthesia Reaction : Excessive somnolence Family History of Anesthesia Reaction : None Magnolia Lima RN - 01/30/2019 12:44 EDT Functional Assessment Living Situation : Home Patient Lives With : Spouse Current Home Treatments : Other: bsc, walker, wheelchair Magnolia Lima RN - 01/30/2019 12:44 EDT Psychosocial History Chronic/Terminal Illness w/Freq Visits : No Do You Have a History of the Following? : Patient denies history Currently in Unsafe Situation : No Tried to Harm Yourself in the Past? : No Thoughts of Harming/Killing Yourself : No Magnolia Lima RN - 01/30/2019 12:44 EDT Advance Directive Patient has Advance Directive *Q : Yes, Advance Directive not with the patient Advance Directive Type : Living will, Medical durable power of bicycle repairer (proxy) Copy Advance Directive Verified/on Chart : Yes Magnolia Lima RN - 01/30/2019 12:44 EDT Spiritual/Cultural Needs Any Spiritual/Cultural Needs or Requests : Yes Magnolia Lima RN - 01/30/2019 12:44 EDT General Info Arrived From : Home Mode of Arrival on Unit : Wheelchair Legal Guardian : Spouse Want Family/Rep/Phys Notified of Admit : No Emergency Contact #1 : dmitry blair Emergency Contact #1 Phone Number : in waiting room Emergency Contact #1 Relationship : Emergency Contact #2 : na Emergency Contact #2 Phone Number : na Emergency Contact #2 Relationship : na Primary Language : Bengali Preferred Communication Mode : Verbal Communication Barrier : None Magnolia Lima RN - 01/30/2019 12:44 EDT Sleep Apnea Risk Assmt BiPAP/CPAP Ordered for Home Use : Yes Hx of Obstructive Sleep Apnea Diagnosis : Yes BiPAP/CPAP Used at Home : No Reason BiPAP/CPAP Not Used at Home : patient took it back Age over 50 Years Old : Yes Gender Male : No Magnolia Lima RN - 01/30/2019 12:44 EDT Cain Scale Cain Sensory Perception : No impairment Cain Moisture : Rarely moist Cain Activity : Chairfast Cain Mobility : Very limited Cain Nutrition : Adequate Cain Friction and Shear : Potential problem Cain Score : 17 Magnolia Lima RN - 01/30/2019 12:44 EDT Oxygen Therapy Oxygen Therapy Mode : Room air Magnolia Lima RN - 01/30/2019 12:44 EDT Fall Risk Scales ABCs Fall Injury Risk Identification : None [place] Hx Falls Immediate/Within 3 Months : No [place] Secondary Diagnosis : Yes [place] Use of Ambulatory Aid : Crutches/Cane/Walker [place] IV Therapy or IV Access : Yes [place] Gait/Transferring : Weak [place] Mental Status : Oriented to own ability [place] Fall Risk Score : 60 [place] Fall Scale Risk Level : 46 or > High Risk [place] Fall Interventions : Adequate lighting, Bed in low position, Call device within reach, Non-slip footwear, Reinforced to call for assistance before getting out of bed, Upper side-rails up Magnolia Lima RN - 01/30/2019 12:44 EDT Education Topics, Day of Surgery DayofSurgery Education Grid Anesthesia/Sedation : Verbalizes understanding Fall Risks : Verbalizes understanding IV's : Verbalizes understanding Pain Management : Verbalizes understanding Plan of Care : Verbalizes understanding Responsible Adult : Verbalizes understanding Magnolia Lima RN - 01/30/2019 12:44 EDT Valuables and Belongings Valuables and Belongings : Clothing, Personal devices, Assistive devices Clothing : Common streetwear Clothing Disposition : With family Personal Device Disposition : With family Personal Devices : Glasses Assistive Devices From Home : Brace Assistive Device Disposition : With family Magnolia Lima RN - 01/30/2019 12:44 EDT Electronically signed by [facility] Conversion Manager Equipment Cerner at 07/24/2022 3:53 PM CDT documented in this encounter Plan of Treatment Not on file documented as of this encounter Visit Diagnoses Not on filedocumented in this encounter Care Teams Trailers And Motor Homes Salesperson Relationship Specialty Start Date End Date Juan José Kendall MD [address] [facility] [address] [place] [address] PCP - General Family Medicine 12/25/22 Juan José Kendall MD [address] [facility] [address] [place] [phone] Referring Physician Family Medicine 12/25/22 documented as of this encounter
--- OUTSIDE RECORDS SUMMARY | 2024-03-11 09:14 | XMS_ITS | Encounter Summary ---
Author Organization [employer] Address [address] [place] [address] Care Team Providers Care Systems Support Specialist Name Role Phone Juan José Kendall MD Primary Care Provider +- [phone] Juan José Kendall MD Unavailable [phone] Encounter Details Date Type Department Care Team (Late st Contact Info) Description 01/30/2019 Transcribed Document [facility] [place] [address] [place] [address] ProviderLaurie MD [address] [place] [address] Social History Tobacco Use Types Packs/Day Years Used Date Smoking Tobacco: Never Assessed Comments Unknown Sex and Gender Information Value Date Recorded Sex Assigned at Not on file Legal Sex Female 2:23 PM CDT Gender Identity Not on file Sexual Orientation Not on file documented as of this encounter Miscellaneous Notes * Cerner Conversion Note - Laurie ProviderMD - 01/30/2019 7:01 PM CDT Pain Assessment Entered On: 01/31/2019 11:31 EDT Performed On: 01/31/2019 8:22 EDT by Daniela Thomas RN Intervention Information: oxyCODONE Performed by Dayday Crump RN on 01/31/2019 07:22:00 EDT oxyCODONE,10mg Oral,Pain (Moderate 4-6) Pain Assessment Pain Assessment : Follow-up assessment Pain Scale Goal : 4 Pain Scale Used : 0-10 Scale Daniela Thomas RN - 01/31/2019 11:31 EDT Pain Scale Intensity : 5 Daniela Thomas RN - 01/31/2019 11:31 EDT Image 4 - Images currently included in the form version of this document have not been included in the text rendition version of the form. documented in this encounter Plan of Treatment Not on file documented as of this encounter Visit Diagnoses Not on filedocumented in this encounter Care Teams Systems Support Specialist Relationship Specialty Start Date End Date Juan José Kendall MD [address] [place] [address] [address] [place] [phone] PCP - General Family Medicine 12/25/22 Juan José Kendall MD [address] [place] [address] [address] [place] [phone] Referring Physician Family Medicine 12/25/22 documented as of this encounter
--- OUTSIDE RECORDS SUMMARY | 2024-03-11 09:14 | XMS_ITS | Encounter Summary ---
Author Organization [employer] Address [address] [place] [address] Care Team Providers Care Airplane Patrol Pilot Name Role Phone Unavailable Primary Care Provider Unavailabl e Encounter Details Date Type Department Care Team (Late st Contact Info) Description 01/30/2019 Historic Encounter [address] [address] Provider, [facility] Historical [...] Procedure Name Priority Date/Time Associated Diagnosis Comments CULTURE, FUNGAL(SENDOUT) Routine 01/30/2019 2:53 PM EDT documented in this encounter Results * Culture, Fungal(SENDOUT) (01/30/2019 2:53 PM EDT) Final No fungus isolated at 6 weeks. Final Pre No fungus isolated at 5 weeks. Pre Pre No fungus isolated at 4 weeks. Pre Pre No fungus isolated at 3 weeks. Pre Pre No fungus isolated at 2 weeks. Pre Pre No fungus isolated at 1 week. Pre IZAIAH No Fungal elements seen STRUCTURE OF RIGHT KNEE REGION / Unknown 01/30/2019 2:53 PM EDT 01/30/2019 10:08 PM EDT [facility] Historical Provider MICROBIOLOGY - GENERAL ORDERABLES Final Result [facility] [address] [phone] documented in this encounter Visit Diagnoses Not on filedocumented in this encounter
--- OUTSIDE RECORDS SUMMARY | 2024-03-11 09:14 | XMS_ITS | Encounter Summary ---
Author Organization [facility] Address [address] [place] [address] Care Team Providers Care Enterprise Account Manager Name Role Phone Juan José Kendall MD Primary Care Provider +- [phone] Juan José Kendall MD Unavailable [phone] Encounter Details Date Type Department Care Team (Late st Contact Info) Description 01/31/2019 Transcribed Document [facility] [place] [address] ProviderLaurie MD [address] [place], [place] [address] Social History Tobacco Use Types Packs/Day Years Used Date Smoking Tobacco: Never Assessed Comments Unknown Sex and Gender Information Value Date Recorded Sex Assigned at Not on file Legal Sex Female 2:23 PM CDT Gender Identity Not on file Sexual Orientation Not on file documented as of this encounter Miscellaneous Notes * Cerner Conversion Note - Laurie ProviderMD - 01/31/2019 10:04 AM CDT Patient: TRUDI BLAIR Age: 63 years Sex: Female : 1955 Associated Diagnoses: None Author: ESTRELLA GONG, PharmD Pharmacy verified patient's allergies and home medication list with the patient and pharmacy records and are as follows: Home Medications (10) Active acetaminophen 500 mg oral tablet 500 mg = 1 Tab, Oral, Q6HInt atorvastatin 20 mg oral tablet 20 mg = 1 Tab, Oral, At Bedtime ibuprofen 200 mg, Oral, BID metoclopramide 10 mg oral tablet 10 mg = 1 Tab, Oral, BID Metoprolol Succinate ER 50 mg oral tablet, extended release 50 mg = 1 Tab, Oral, Daily Myrbetriq 25 mg oral tablet, extended release 25 mg = 1 Tab, Oral, At Bedtime pantoprazole 40 mg oral delayed release tablet 40 mg = 1 Tab, Oral, Daily potassium chloride 20 mEq oral tablet, extended release 20 mEq = 1 Tab, Oral, BID topiramate 50 mg oral tablet 50 mg = 1 Tab, Oral, BID.. Takes for migraines. Last migraine October 2018. traZODone 50 mg oral tablet 50 mg = 1 Tab, PRN, Oral, At Bedtime Allergies (1) Active Reaction Biaxin Acid reflux ThanksEstrella Pharm.D. Electronically signed by Aleks, [facility] Conversion Vocational Childcare Teacher Cerner at 07/24/2022 3:45 PM CDT documented in this encounter Plan of Treatment Not on file documented as of this encounter Visit Diagnoses Not on filedocumented in this encounter Care Teams Enterprise Account Manager Relationship Specialty Start Date End Date Juan José Kendall MD [address] [facility] [address] [place] [address] PCP - General Family Medicine 12/25/22 Juan José Kendall MD [address] [facility] [address] [place] [address] Referring Physician Family Medicine 12/25/22 documented as of this encounter
--- OUTSIDE RECORDS SUMMARY | 2024-03-11 09:14 | XMS_ITS | Encounter Summary ---
Author Organization [employer] Address [address] [facility] [place] [address] Care Team Providers Care Temporary Staff Accountant Name Role Phone Juan José Kendall MD Primary Care Provider +- [phone] Juan José Kendall MD Unavailable [phone] Encounter Details Date Type Department Care Team (Late st Contact Info) Description 01/30/2019 Transcribed Document [facility] [place] [address] [place] [address] ProviderLaurie MD [address] [place] [address] Social History Tobacco Use Types Packs/Day Years Used Date Smoking Tobacco: Never Assessed Comments Unknown Sex and Gender Information Value Date Recorded Sex Assigned at Not on file Legal Sex Female 2:23 PM CDT Gender Identity Not on file Sexual Orientation Not on file documented as of this encounter Miscellaneous Notes * Cerner Conversion Note - Laurie ProviderMD - 01/30/2019 7:01 PM CDT Evaluation, Physical Therapy Entered On: 01/31/2019 10:44 EDT Performed On: 01/31/2019 10:35 EDT by LINDA BEVERLY, EDWIN General Information, PT Visit Type, PT : Initial evaluation Patient Orders : Order Date Order Ordering 01/30/2019 19:01 PT Evaluation and Treatment Ordered By: JONG SANTACRUZ MD-ORJasmine 01/30/2019 19:01 PT Treatment Instructions Ordered By: JONG SANTACRUZ MD-ORT 01/30/2019 19:01 PT Treatment Instructions Ordered By: JONG SANTACRUZ MD-ORT Active Diagnoses : 01/30/2019 12:00 Encounter for fitting and adjustment [...] PT : reduced mobility Admission Date : 01/31/2019 09:58 Personal Devices : Personal Devices Glasses Assistive Devices : Assistive Devices Brace Precautions in Place : Fall prevention measures Isolation Maintained : Contact LINDA BEVERLY, PT - 01/31/2019 10:35 EDT General Status Patient Received Status : Supine in bed, Bed alarm activated, Other: RLE long leg cast, LLE with KI on AAT, SCDs applied, IV in RUE. Treatment Start Time : 01/31/2019 9:15 EDT Patient Left Status : Up in chair, Chair alarm activated, RN/PCT informed, Family/Visitors at bedside, Communication board completed, All needs met and within reach, Other: RLE long leg cast, LLE with KI on AAT, SCDs applied, IV in RUE. RN/PCT Informed Comment : RN and patient consenting to treatment this date. Treatment End Time : 01/31/2019 9:35 EDT Treatment Time : 20 Minute(s) LINDA BEVERLY, PT - 01/31/2019 10:35 EDT History and Environment Living Situation, Therapy : Home Patient Lives With : Spouse Persons Providing Information : Patient Home Setup : One story Stairs : No Prior LOF Assist with ADL Comment : Patient was doing most transfers with slideboard and SBA/CGA, occassional stand pivot transfer with RW and min assist from . History and Environment Comment, PT : Lives in single story home with ramp entry, owns RW, WC, BSC and Tub bench, end packer and sock aide. Lives with spouse. LINDA BEVERLY, PT - 01/31/2019 10:35 EDT Upper Extremity Upper Extremity Dominance : Right Right UE Active ROM : WFL Right UE Strength : WFL Left UE Active ROM : WFL Left UE Strength : WFL LINDA BEVERLY, PT - 01/31/2019 10:35 EDT Lower Extremity RLE Active ROM : Impaired Right LE Strength : Impaired LLE Active ROM : Impaired Left LE Strength : Impaired Lower Extremity Comment : Significant edema in BLE, especially left ankle. Min assist to manuver legs to edge of bed. LINDA BEVERLY, PT - 01/31/2019 10:35 EDT Functional Mobility Mobility Grid Bed Scooting : Rehab Minimal assistance Supine to Sit : Rehab Minimal assistance Sit to Stand : Rehab Minimal assistance (Comment: x2 with RW for elevated bed [LINDA BEVERLY, PT - 01/31/2019 10:35 EDT] ) Bed to Chair : Rehab Minimal assistance (Comment: x2 with RW [LINDA BEVERLY, PT - 01/31/2019 10:35 EDT] ) Stand to Sit : Rehab Minimal assistance (Comment: x2 with RW, pillow in chair to elevate surface [LINDA BEVERLY, PT - 01/31/2019 10:35 EDT] ) LINDA BEVERLY, PT - 01/31/2019 10:35 EDT [facility] Basic Mobility Turning Over in Bed : A little Sit Down On/Stand Up From Chair w/ Arms : A little Move Back Lying to Sitting Side of Bed : A little Moving To/From a Bed to Chair : A little Need to Walk in Hospital Room : A lot Climbing 3-5 Steps with a Railing : Total [facility] Basic Mobility Raw Score : 15 [facility] Basic Mobility Standardized Score : 39.45 [facility] Basic Mobility CMS 0-100% Score : 57.70 % LINDA BEVERLY PT - 01/31/2019 10:35 EDT Image 1 - Images currently included in the form version of this document have not been included in the text rendition version of the form. Gait Training/Assessment, PT Weight Bearing Order Status : WBAT but no ROM and no active quads Weight Bearing Status Maintained : Yes Weight Bearing Status Comment : orders for transfers only at this time. Gait Training Comment : orders for transfers only at this time. Stair(s) Ascend/Descend Training : No LINDA BEVERLY, PT - 01/31/2019 10:35 EDT Neuromuscular Reeducation, PT Balance Comment : Good sitting balance and Fair standing balance with RW. LINDA BEVERLY, PT - 01/31/2019 10:35 EDT Neurological/Sensory Overall Sensory Response : Intact Response to Pain : Intact LINDA BEVERLY, PT - 01/31/2019 10:35 EDT Cognition Assessment, PT Orientation : Oriented x 4 LINDA BEVERLY, PT - 01/31/2019 10:35 EDT Edu Topics Physical Therapy Education Grid Balance Training : Verbalizes understanding Bed Mobility Training : Verbalizes understanding Caregiver Training : Verbalizes understanding Role of Physical Therapy : Verbalizes understanding Safety : Verbalizes understanding Transfer Training : Verbalizes understanding Use of Assistive Device : Verbalizes understanding LINDA BEVERLY, PT - 01/31/2019 10:35 EDT Indication Assesessment, PT Physical Therapy Indicated : Yes Interdisciplinary Consultation(s) Needed : No PT Problem List : Impaired, activities daily living, Impaired, bed mobility, Impaired, endurance tolerance, Impaired, standing balance, Impaired, strength, Impaired, transfers, Pain limiting function Potential Barriers To Therapy : None evident Rehabilitation Potential : Good LINDA BEVERLY, PT - 01/31/2019 10:35 EDT Plan of Care, PT PT Tx Plan/Goals Established w Patient : Yes PT Frequency Rehab : Daily, twice (bid) PT Duration Rehab : Three days LINDA BEVERLY, PT - 01/31/2019 10:35 EDT [facility] Goals Other PT LTG Grid Goal #1 Goal #2 Other : Patient will complete bed to chair transfer with RW and CGA/min assist x 1 person. Patient will complete supine to sit with leg gauge maker apprentice and CGA. Date to Meet : 02/03/2019 EDT 02/03/2019 EDT Goal Status : Initial goal Initial goal LINDA BEVERLY, PT - 01/31/2019 10:35 EDT LINDA BEVERLY, PT - 01/31/2019 10:35 EDT Treatment Note Subjective Comment : Patient was pleasant and cooperative with treatment this date. Patient's Response to Treatment : No adverse reactions to treatment. Additional Objective Information : See Evaluation. Assessment : PT services required. Plan for Treatment : Progress per POC as tolerated. LINDA BEVERLY PT - 01/31/2019 10:35 EDT Pain Assessment Pain Scaled Used : 0-10 Pain scale Pain Score Pre-Intervention : 5 Pain Score During-Intervention : 5 Pain Score Post-Intervention. : 5 Pain Comment : right knee LINDA BEVERLY, PT - 01/31/2019 10:35 EDT Image 1 - Images currently included in the form version of this document have not been included in the text rendition version of the form. Anticipated Discharge Needs, OT/PT Anticipated Discharge to : Home, with home health Anticipated Home Equipment : None Anticipated D/C Provider Notified : Nursing CONRADOUS LINDA, PT - 01/31/2019 10:35 EDT [facility] Charges PT Ther Activities Ea 15 Min : 1 PT Eval Low Complexity : 1 CONRADOUS LINDA, PT - 01/31/2019 10:35 EDT Electronically signed by Aleks [facility] Conversion Religious Assistant Cerner at 07/24/2022 3:55 PM CDT documented in this encounter Plan of Treatment Not on file documented as of this encounter Visit Diagnoses Not on filedocumented in this encounter Care Teams Temporary Staff Accountant Relationship Specialty Start Date End Date Juan José Kendall MD [address] [facility] [address] [place] [address] PCP - General Family Medicine 12/25/22 Juan José Kendall MD [address] [facility] [address] [place] [address] Referring Physician Family Medicine 12/25/22 documented as of this encounter
--- OUTSIDE RECORDS SUMMARY | 2024-03-11 09:14 | XMS_ITS | Encounter Summary ---
Author Organization [employer] Address [address] [place] [address] Care Team Providers Care Regional Economist Name Role Phone Juan José Kendall MD Primary Care Provider +- [phone] Juan José Kendall MD Unavailable [phone] Encounter Details Date Type Department Care Team (Late st Contact Info) Description 01/30/2019 Transcribed Document [facility] [place] Family Medicine [address] [place] [address] ProviderLaurie MD [address] [place] [id number] Social History Tobacco Use Types Packs/Day Years [...] PM CDT Pain Assessment Entered On: 01/31/2019 4:52 EDT Performed On: 01/31/2019 4:41 EDT by Dayday Crump RN Intervention Information: HYDROmorphone Performed by Dayday Crump RN on 01/31/2019 04:11:00 EDT HYDROmorphone,0.5mg IV Push,Peripheral Line 1,Pain (Severe 7-10) Pain Assessment Pain Assessment : Follow-up assessment Pain Scale Goal : 4 Pain Scale Used : 0-10 Scale Pain Intervention, Drug : Medicated Pain Improved by Intervention : Yes Pain Comment : sleeping Dayday Crump RN - 01/31/2019 4:52 EDT Pain Scale Intensity : Alternate pain scale used Dayday Crump RN - 01/31/2019 4:52 EDT Image 4 - Images currently included in the form version of this document have not been included in the text rendition version of the form. Electronically signed by Aleks, [facility] Conversion Senior Engineer Cerner at 07/24/2022 3:53 PM CDT documented in this encounter Plan of Treatment Not on file documented as of this encounter Visit Diagnoses Not on filedocumented in this encounter Care Teams Regional Economist Relationship Specialty Start Date End Date Juan José Kendall MD [address] [facility] [address] [place] [address] PCP - General Family Medicine 12/25/22 Juan José Kendall MD [address] [facility] [address] [place] [address] Referring Physician Family Medicine 12/25/22 documented as of this encounter
--- OUTSIDE RECORDS SUMMARY | 2024-03-11 09:14 | XMS_ITS | Encounter Summary ---
Author Organization [employer] Address [address] [place] [address] Care Team Providers Care Safety Advisor Name Role Phone Juan José Kendall MD Primary Care Provider +- [phone] Juan José Kendall MD Unavailable [phone] Encounter Details Date Type Department Care Team (Late st Contact Info) Description 02/01/2019 Transcribed Document [facility] [place] Family Medicine [facility] [place] [address] ProviderLaurie MD [address] [place], [place] [address] Social History Tobacco Use Types Packs/Day Years Used Date Smoking Tobacco: Never Assessed Comments Unknown Sex and Gender Information Value Date Recorded Sex Assigned at Not on file Legal Sex Female 2:23 PM CDT Gender Identity Not on file Sexual Orientation Not on file documented as of this encounter Miscellaneous Notes * Cerner Conversion Note - Laurie ProviderMD - 02/01/2019 8:00 AM CDT Pain Assessment Entered On: 02/01/2019 18:05 EDT Performed On: 02/01/2019 9:44 EDT by Deborah Martinez RN Intervention Information: acetaminophen Performed by Deborah Martinez RN on 02/01/2019 08:44:00 EDT acetaminophen,500mg Oral Pain Assessment Pain Assessment : Follow-up assessment Pain Scale Goal : 4 Pain Scale Used : 0-10 Scale Deborah Martinez RN - 02/01/2019 18:05 EDT Pain Scale Intensity : Alternate pain scale used Deborah Martinez RN - 02/01/2019 18:05 EDT Image 4 - Images currently included in the form version of this document have not been included in the text rendition version of the form. documented in this encounter Plan of Treatment Not on file documented as of this encounter Visit Diagnoses Not on filedocumented in this encounter Care Teams Safety Advisor Relationship Specialty Start Date End Date Juan José Kendall MD [address] [facility] [address] [place] [address] PCP - General Family Medicine 12/25/22 Juan José Kendall MD [address] [facility] [address] [place] [phone] Referring Physician Family Medicine 12/25/22 documented as of this encounter
--- OUTSIDE RECORDS SUMMARY | 2024-03-11 09:14 | XMS_ITS | Encounter Summary ---
Author Organization [facility] Address [address] [place] [address] Care Team Providers Care Power Barker Operator Name Role Phone Juan José Kendall MD Primary Care Provider +- [phone] Juan José Kendall MD Unavailable [phone] Encounter Details Date Type Department Care Team (Late st Contact Info) Description 01/31/2019 Transcribed Document [facility] [place] [address] [place] [address] ProviderLaurie MD [address] [place] [address] Social History Tobacco Use Types Packs/Day Years Used Date Smoking Tobacco: Never Assessed Comments Unknown Sex and Gender Information Value Date Recorded Sex Assigned at Not on file Legal Sex Female 2:23 PM CDT Gender Identity Not on file Sexual Orientation Not on file documented as of this encounter Miscellaneous Notes * Cerner Conversion Note - Historical ProviderMD - 01/31/2019 9:00 AM CDT Pain Assessment Entered On: 01/31/2019 11:32 EDT Performed On: 01/31/2019 9:32 EDT by Daniela Thomas RN Intervention Information: celecoxib Performed by Daniela Thomas RN on 01/31/2019 08:32:00 EDT celecoxib,200mg Oral Pain Assessment Pain Assessment : Follow-up assessment Pain Scale Goal : 4 Pain Scale Used : 0-10 Scale Daniela Thomas RN - 01/31/2019 11:32 EDT Pain Scale Intensity : 5 Daniela Thomas RN - 01/31/2019 11:32 EDT Image 4 - Images currently included in the form version of this document have not been included in the text rendition version of the form. documented in this encounter Plan of Treatment Not on file documented as of this encounter Visit Diagnoses Not on filedocumented in this encounter Care Teams Power Barker Operator Relationship Specialty Start Date End Date Juan José Kendall MD [address] [facility] [address] [place] [address] PCP - General Family Medicine 12/25/22 Juan José Kendall MD [address] [facility] [address] [place] [phone] Referring Physician Family Medicine 12/25/22 documented as of this encounter
--- OUTSIDE RECORDS SUMMARY | 2024-03-11 09:14 | XMS_ITS | Encounter Summary ---
Author Organization [employer] Address [address] [place] [address] Care Team Providers Care Application Support Administrator Name Role Phone Juan José Kendall MD Primary Care Provider + [phone] Juan José Kendall MD Unavailable [phone] Encounter Details Date Type Department Care Team (Late st Contact Info) Description 02/01/2019 Transcribed Document [facility] [place] Family Medicine [address] [place] [address] ProviderLaurie MD [address] [place] [address] Social History Tobacco Use Types Packs/Day Years Used Date Smoking Tobacco: Never Assessed Comments Unknown Sex and Gender Information Value Date Recorded Sex Assigned at Not on file Legal Sex Female 2:23 PM CDT Gender Identity Not on file Sexual Orientation Not on file documented as of this encounter Miscellaneous Notes * Cerner Conversion Note - Historical ProviderMD - 02/01/2019 4:25 PM CDT Initial Discharge Planning Entered On: 02/01/2019 16:27 EDT Performed On: 02/01/2019 16:25 EDT by JAYE MAYFIELD Care Management-Equipment Cleaner And Tester Initial Assessment I Previously Documented Living Environment : No qualifying data available. Living Situation : Home Patient Lives With : Caregiver(s), Spouse Emergency Contact #1 : dmitry blair Emergency Contact #1 Phone Number : in waiting room Emergency Contact #1 Relationship : Emergency Contact #2 : na Emergency Contact #2 Phone Number : na Emergency Contact #2 Relationship : na JAYE MAYFIELD Care Management-Equipment Cleaner And Tester - 02/01/2019 16:25 EDT Initial Assessment II Sensory and Motor Deficits : Other: bilateral quad tendon rupture Current Home Treatments and Equipment : Bedside commode, Walker, Wheelchair, Other: lift chair JAYE MAYFIELD Care Management-Equipment Cleaner And Tester - 02/01/2019 16:25 EDT Discharge Needs I Anticipated Discharge Date : 02/01/2019 EDT Anticipated Discharge To, CM : Home with family care, Home with home health Current Home Treatment/Equipment : Current Home Treatment/Equipment No qualifying data available. Post Acute/Home Treatments : None Documentation Status Complete : Yes JAYE MAYFIELD Care Management-Equipment Cleaner And Tester - 02/01/2019 16:25 EDT Discharge Needs II Professional Skilled Services : Professional Skilled Services No qualifying data available. Discharge Options Discussed with Patient : Home Health JAYE MAYFIELD Care Management-Equipment Cleaner And Tester - 02/01/2019 16:25 EDT Electronically signed by Aleks [facility] Conversion Field Crop Ii Farmworker Cerner at 07/24/2022 3:38 PM CDT documented in this encounter Plan of Treatment Not on file documented as of this encounter Visit Diagnoses Not on filedocumented in this encounter Care Teams Application Support Administrator Relationship Specialty Start Date End Date Juan José Kendall MD [address] [facility] [address] [place] [address] PCP - General Family Medicine 12/25/22 Juan José Kendall MD [address] [facility] [address] [place] [id number] Referring Physician Family Medicine 12/25/22 documented as of this encounter
--- OUTSIDE RECORDS SUMMARY | 2024-03-11 09:14 | XMS_ITS | Encounter Summary ---
Author Organization [employer] Address [address] [place] [address] Care Team Providers Care Overlay Plastician Name Role Phone Juan José Kendall MD Primary Care Provider +- [phone] Juan José Kendall MD Unavailable [phone] Encounter Details Date Type Department Care Team (Late st Contact Info) Description 01/30/2019 Transcribed Document [facility] [place] [facility] [place] [address] ProviderLaurie MD [address] [place] [id number] Social History Tobacco Use Types Packs/Day Years Used Date Smoking Tobacco: Never Assessed Comments Unknown Sex and Gender Information Value Date Recorded Sex Assigned at Not on file Legal Sex Female 2:23 PM CDT Gender Identity Not on file Sexual Orientation Not on file documented as of this encounter Miscellaneous Notes * Cerner Conversion Note - Laurie ProviderMD - 01/30/2019 11:28 AM CDT Admission History, Adult Entered On: 01/31/2019 4:55 EDT Performed On: 01/30/2019 11:28 EDT by Dayday Crump RN Advance Directive Patient has Advance Directive *Q : Yes, Advance Directive not with the patient Advance Directive Type : Living will, Medical durable power of assistant city attorney (proxy) Copy Advance Directive Verified/on Chart : Yes Dayday Crump RN - 01/31/2019 4:53 EDT Anesthesia/Transfusion History Family History of Anesthesia Reaction : Prior transfusion without reaction Blood Transfusion Acceptable to Patient : Yes Transfusion History : Prior anesthesia reaction Type of Anesthesia Reaction : Excessive somnolence Family History of Anesthesia Reaction : None Dayday Crump RN - 01/31/2019 4:53 EDT Anticipated Discharge Needs Discharge To, Anticipated : Home Dayday Crump RN - 01/31/2019 4:53 EDT Functional Assessment Living Situation : Home Patient Lives With : Spouse Current Home Treatments : Other: bsc, walker, wheelchair Dayday Crump RN - 01/31/2019 4:53 EDT General Info Arrived From : Home [...] #2 Relationship : na Primary Language : [place] Preferred Communication Mode : Verbal Communication Barrier : None Dayday Crump RN - 01/31/2019 4:53 EDT Fall Risk Scales ABCs Fall Injury Risk Identification : Surgery ABC Fall Injury Risk : Moderate to high injury risk Injury Moderate to High Risk Interventions : Bed alarm on, Specialty low bed, Wrist band (fall risk) on per policy [place] Hx Falls Immediate/Within 3 Months : No [place] Secondary Diagnosis : No [place] Use of Ambulatory Aid : Bed rest/Nurse assist [place] IV Therapy or IV Access : Yes Brittany Gait/Transferring : Impaired [place] Mental Status : Oriented to own ability [place] Fall Risk Score : 40 [place] Fall Scale Risk Level : 46 or > High Risk [place] Fall Interventions : Adequate lighting Barriers to Learning : None evident Fall Risk Scale Calc Temp : 0 Dayday Crump RN - 01/31/2019 4:53 EDT Health Histories Smoking Status : Never (less than 100 in lifetime; none in last 30 days) Smokeless Tobacco Status : Never Dayday Crump RN - 01/31/2019 4:53 EDT Social History (As Of: 01/31/2019 04:55:07 EDT) Tobacco: Never (less than 100 in lifetime) Smoking Status. Never Smokeless Tobacco Status. (Last Updated: 06/23/2018 15:46:55 EDT by RASHEL BARRAZA, RN) Alcohol: Alcohol Use History No. (Last Updated: 06/23/2018 15:46:55 EDT by RASHEL BARRAZA, RN) Substance Abuse: Drug Use Hx: No. (Last Updated: 06/23/2018 15:46:55 EDT by RASHEL BARRAZA, RN) Height and Weight, Clinical Dosing Height Source : Stated Height Entry Format : [place] Height, Feet : 5 ft(Converted to: 152 cm, 60 Inch) Height, Inches : 6 Inch(Converted to: 0 ft 6 Inch, 15.24 cm) Clinical Height : 167.64 cm Weight Source : Standing scale Weight Entry Format : [place] Clinical Dosing Weight : 96.82 kg Weight, Pounds : 213 lb Body Surface Area (BSA) : 2.06 m2 Body Mass Index : 34.5 kg/m2 (HI) [place] Body Weight : 59 kg Dayday Crump RN - 01/31/2019 4:53 EDT Infectious Disease History Infectious Disease History : Chicken pox/Shingles, Influenza, Measles, Mononucleosis, MRSA, Mumps Isolation Needed : Contact Fever/Chills Last 48 Hours : No Travel To Regions with Travel Advisories : No Travel Outside [place] Within Last 30 Days : No Contact With Traveler to Advisory Region : No Tuberculosis Symptoms : None Dayday Crump RN - 01/31/2019 4:53 EDT Influenza Vaccine Asmt, Adult Previous Vaccines from Immunization Schedule : No qualifying data available. Influenza Immunization, Current Season : Unknown Inactivated Flu Vaccine Contraindications : No contraindications to inactivated influenza vaccine Transplant Workup/Recent Transplant : No Order for Influenza Vaccine : Declined Vaccination Dayday Crump RN - 01/31/2019 4:53 EDT Pneumococcal Vaccine Previous Vaccines from Immunization Schedule : No qualifying data available. Pneumonia Immunization Received : No Pneumococcal Risk Assessment < Age 65 : None Dayday Crump RN - 01/31/2019 4:53 EDT Nutrition History Adaptive Feeding Equipment : Regular Oral Medication Administration : By mouth Eating Poorly Due to Decreased Appetite : No Unplanned Weight Loss in Past 3-6 Months : No Malnutrition Screening Tool Total(mal) : 0 Malnutrition Screening Tool Risk Level : Patient not at risk Dayday Crump RN - 01/31/2019 4:53 EDT Psychosocial History Does Someone Depend on You for Care? : No Chronic/Terminal Illness w/Freq Visits : No Do You Have a History of the Following? : Patient denies history Currently in Unsafe Situation : No Tried to Harm Yourself in the Past? : No Thoughts of Harming/Killing Yourself : No Dayday Crump RN - 01/31/2019 4:53 EDT Sleep Apnea Risk Assmt BiPAP/CPAP Ordered for Home Use : Yes Hx of Obstructive Sleep Apnea Diagnosis : Yes BiPAP/CPAP Used at Home : No Reason BiPAP/CPAP Not Used at Home : patient took it back Age over 50 Years Old : Yes Gender Male : No Dayday Crump RN - 01/31/2019 4:53 EDT Valuables and Belongings Valuables and Belongings : Clothing, Personal devices, Assistive devices Clothing : Common streetwear Clothing Disposition : With family Personal Device Disposition : With family Personal Devices : Glasses Assistive Devices From Home : Brace Assistive Device Disposition : With family Dayday Crump RN - 01/31/2019 4:53 EDT Electronically signed by Ale[facility] Conversion Coal Grader Cerner at 07/24/2022 3:45 PM CDT documented in this encounter Plan of Treatment Not on file documented as of this encounter Visit Diagnoses Not on filedocumented in this encounter Care Teams Overlay Plastician Relationship Specialty Start Date End Date Juan José Kendall MD [address] [facility] [address] [place] [address] PCP - General Family Medicine 12/25/22 Juan José Kendall MD [address] [facility] [address] [place] [address] Referring Physician Family Medicine 12/25/22 documented as of this encounter
--- OUTSIDE RECORDS SUMMARY | 2024-03-11 09:14 | XMS_ITS | Encounter Summary ---
Author Organization [facility] Address [address] [place] [address] Care Team Providers Care Computer Support Analyst Name Role Phone Juan José Kendall MD Primary Care Provider [phone]- [phone] Juan José Kendall MD Unavailable [phone] Encounter Details Date Type Department Care Team (Late st Contact Info) Description 01/30/2019 Transcribed Document [facility] [address] [place] [address] ProviderLaurie MD [address] [place] [address] Social History Tobacco Use Types [...] 01/30/2019 2:37 PM CDT [place] Main OR IntraOp Summary Primary Physician: JONG SANTACRUZ MD-ORT Finalized Date/Time: 01/31/19 09:02:33 Pt. Name: TRUDI BLAIR D.O.B./Sex: 1955 Female Med Rec #: [id number] Physician: JONES HIDALGO MD-INT Financial #: [id number] Pt. Type: I Room/Bed: [facility]/ Admit/Disch: 01/30/19 19:40:00 - Institution: [facility] IntraOp Case Attendance Entry 1 Entry 2 Entry 3 Case Attendee JONG SANTACRUZ MD-ORRIZWAN PAUL, MACY GARCIAS, LISBETH Role Performed Surgeon/Proceduralist, HOME STEREO EQUIPMENT INSTALLER/Nurse Converting Operator Management Specialist, First First Time In 01/30/19 14:00:00 01/30/19 14:00:00 01/30/19 14:00:00 Time Out 01/30/19 18:03:00 01/30/19 15:12:00 01/30/19 15:06:00 Procedure Patella Tendon Repair Patella Tendon Repair Patella Tendon Repair Other Attendee Superficial Wound Closed By: Last Modified By: MACY SANCHEZ, MACY TRAYLOR, MACY TRAYLOR, LISBETH 01/30/19 18:04:08 01/30/19 18:04:08 01/30/19 18:04:08 Entry 4 Entry 5 Entry 6 Case Attendee TANMAY SU, SHAY SOSA DANNY, TRAMPOLINE TEAM COACH Role Performed Management Specialist, Second Scrub, First Scrub, Second Time In 01/30/19 15:00:00 01/30/19 14:00:00 01/30/19 15:02:00 Time Out 01/30/19 17:02:00 01/30/19 15:06:00 01/30/19 18:03:00 Procedure Patella Tendon Repair Patella Tendon Repair Patella Tendon Repair Other Attendee Superficial Wound Closed By: Last Modified By: MACY SANCHEZ, MACY TRAYLOR, MACY TRAYLOR, LISBETH 01/30/19 18:04:08 01/30/19 18:04:08 01/30/19 18:04:08 Entry 7 Entry 8 Entry 9 Case Attendee RIZWAN AGUILAR, Rory Mccabe, BELEM GREENWOOD, RAMANA Role Performed HOME STEREO EQUIPMENT INSTALLER/Nurse Converting Operator Assistive Weight Control Lecturer, First Time In 01/30/19 14:00:00 01/30/19 14:00:00 01/30/19 14:00:00 Time Out 01/30/19 15:12:00 01/30/19 17:00:00 01/30/19 17:00:00 Procedure Patella Tendon Repair Patella Tendon Repair Patella Tendon Repair Other Attendee Superficial Wound Closed By: Last Modified By: MACY SANCHEZ RN LONGSWORTH, GARY, MACY TRAYLOR RN 01/30/19 18:04:08 01/30/19 18:04:08 01/30/19 18:04:08 Entry 10 Entry 11 Entry 12 Case Attendee SIENA ROSE, HOME STEREO EQUIPMENT INSTALLER Emily Williamson, NICK KERN, -MONICA Bottle Carrier Role Performed HOME STEREO EQUIPMENT INSTALLER/Nurse Converting Operator Health And Safety Trainer Anesthesiologist Time In 01/30/19 15:11:00 01/30/19 16:19:00 01/30/19 16:51:00 Time Out 01/30/19 16:51:00 01/30/19 17:06:00 01/30/19 18:03:00 Procedure Patella Tendon Repair Patella Tendon Repair Patella Tendon Repair Other Attendee Superficial Wound Closed By: Last Modified By: MACY SANCHEZ RN LONGSWORTH, GARY, MACY TRAYLOR RN 01/30/19 18:04:08 01/30/19 18:04:08 01/30/19 18:04:08 Entry 13 Entry 14 Case Attendee OLEG BETH PA-C Davis, Aleitha E RN Role Performed Physician assistant commissioner Management Specialist, First Time In 01/30/19 16:55:00 01/30/19 17:01:00 Time Out 01/30/19 18:03:00 01/30/19 18:03:00 Procedure Patella Tendon Repair Patella Tendon Repair Other Attendee Superficial Wound Closed By: Last Modified By: MACY SANCHEZ RN LONGSWORTH, GARY, RN 01/30/19 18:04:08 01/30/19 18:04:08 [facility] IntraOp Case Attendance Audit 01/30/19 18:04:08 On Site Services Specialist: ALBERTINA Modifier: ALBERTINA 1 <+> Time Out 1 <*> Procedure Patella Tendon Repair 2 <*> Procedure Patella Tendon Repair 3 <*> Procedure Patella Tendon Repair 4 <*> Procedure Patella Tendon Repair 5 <*> Procedure Patella Tendon Repair 6 <+> Time Out 6 <*> Procedure Patella Tendon Repair 7 <*> Procedure Patella Tendon Repair 8 <*> Procedure Patella Tendon Repair 9 <*> Procedure Patella Tendon Repair 10 <*> Procedure Patella Tendon Repair 11 <*> Procedure Patella Tendon Repair 12 <+> Time Out 12 <*> Procedure Patella Tendon Repair 13 <+> Time Out 13 <*> Procedure Patella Tendon Repair 14 <+> Time Out 14 <*> Procedure Patella Tendon Repair 01/30/19 17:14:54 On Site Services Specialist: LONGGA Modifier: LONGGA 2 <+> Time Out 2 <*> Procedure Patella Tendon Repair 8 <+> Time Out 8 <*> Procedure Patella Tendon Repair 9 <+> Time Out 9 <*> Procedure Patella Tendon Repair 01/30/19 17:09:17 On Site Services Specialist: LONGGA Modifier: LONGGA 4 <+> Time Out 4 <*> Procedure Patella Tendon Repair 11 <+> Time Out 11 <*> Procedure Patella Tendon Repair <+> 14 Case Attendee <+> 14 Role Performed <+> 14 Time In <+> 14 Procedure 01/30/19 17:06:05 On Site Services Specialist: LONGGA Modifier: LONGGA 10 <+> Time Out 10 <*> Procedure Patella Tendon Repair <+> 12 Case Attendee <+> 12 Role Performed <+> 12 Time In <+> 12 Procedure <+> 13 Case Attendee <+> 13 Role Performed <+> 13 Time In <+> 13 Procedure 01/30/19 16:19:39 On Site Services Specialist: LONGGA Modifier: LONGGA 1 <+> Time In 1 <*> Procedure Patella Tendon Repair 2 <+> Time In 2 <*> Procedure Patella Tendon Repair 3 <+> Time In 3 <*> Procedure Patella Tendon Repair 4 <*> Procedure Patella Tendon Repair 5 <+> Time In 5 <*> Procedure Patella Tendon Repair 6 <*> Procedure Patella Tendon Repair 7 <+> Time In 7 <*> Procedure Patella Tendon Repair 8 <+> Time In 8 <*> Procedure Patella Tendon Repair 9 <+> Time In 9 <*> Procedure Patella Tendon Repair 10 <*> Procedure Patella Tendon Repair <+> 11 Case Attendee <+> 11 Role Performed <+> 11 Time In <+> 11 Procedure 01/30/19 15:14:01 On Site Services Specialist: LONGGA Modifier: LONGGA <+> 1 Procedure 2 <*> Procedure Patella Tendon Repair 3 <*> Procedure Patella Tendon Repair 4 <*> Procedure Patella Tendon Repair 5 <*> Procedure Patella Tendon Repair 6 <*> Procedure Patella Tendon Repair 7 <*> Procedure Patella Tendon Repair 8 <*> Procedure Patella Tendon Repair 9 <*> Procedure Patella Tendon Repair 10 <*> Procedure Patella Tendon Repair 01/30/19 15:12:34 On Site Services Specialist: LONGGA Modifier: LONGGA 7 <+> Time Out 7 <*> Procedure Patella Tendon Repair <+> 10 Case Attendee <+> 10 Role Performed <+> 10 Time In <+> 10 Procedure 01/30/19 15:06:43 On Site Services Specialist: LONGGA Modifier: LONGGA 3 <+> Time Out 3 <*> Procedure Patella Tendon Repair 5 <+> Time Out 5 <*> Procedure Patella Tendon Repair 01/30/19 15:04:29 On Site Services Specialist: LONGGA Modifier: LONGGA <+> 5 Case Attendee <+> 5 Role Performed <+> 5 Procedure <+> 6 Case Attendee <+> 6 Role Performed <+> 6 Time In <+> 6 Procedure <+> 7 Case Attendee <+> 7 Role Performed <+> 7 Procedure <+> 8 Case Attendee <+> 8 Role Performed <+> 8 Procedure <+> 9 Case Attendee <+> 9 Role Performed <+> 9 Procedure 01/30/19 15:01:10 On Site Services Specialist: LONGGA Modifier: LONGGA <+> 4 Case Attendee <+> 4 Role Performed <+> 4 Time In <+> 4 Procedure [facility] IntraOp Case Times Entry 1 Patient In Room Time 01/30/19 14:00:00 Out Room Time 01/30/19 18:03:00 Anesthesia Start Time 01/30/19 14:00:00 Stop Time 01/30/19 18:03:00 Anesthesia Ready 01/30/19 14:00:00 Surgery / Procedure Times Start Time 01/30/19 14:37:00 Stop Time 01/30/19 17:46:00 Last Modified By: MACY SANCHEZ RN 01/30/19 18:04:07 [facility] IntraOp Case Times Audit 01/30/19 18:04:07 On Site Services Specialist: LONGGA Modifier: LONGGA <+> 1 Out Room Time <+> 1 Stop Time 01/30/19 17:46:15 On Site Services Specialist: LONGGA Modifier: LONGGA <+> 1 Stop Time 01/30/19 15:33:12 On Site Services Specialist: LONGGA Modifier: LONGGA <+> 1 In Room Time <+> 1 Start Time <+> 1 Anesthesia Ready [facility] IntraOp Cautery Entry 1 ESU Identification Cautery Type Monopolar ESU ID Number [id number] ID Type Hospital Number Cautery Settings Cut Setting 50 Coag Setting 50 ESU Grounding Pad Ground Pad Type Adult Grounding Pad Site Left thigh Grounding Pad MACY SANCHEZ RN Applied By Grounding Pad Site Warm, dry and intact Skin Condition Before Cautery Grounding Pad Site Unchanged Skin Condition After Cautery Last Modified By: MACY SANCHEZ RN 01/30/19 15:05:14 [facility] IntraOp Communication Entry 1 Communication To Family/Significant other Communication By MACY SANCHEZ RN Date and Time 01/30/19 14:56:00 Last Modified By: MACY SANCHEZ RN 01/30/19 15:05:28 [facility] IntraOp Counts Verification Entry 1 Entry 2 Entry 3 Procedure Patella Tendon Repair Patella Tendon Repair Patella Tendon Repair Count Info Count Type Sponge, Sharps Sponge, Sharps, Sponge, Sharps, Miscellaneous Miscellaneous Counts Verification Baseline/pre-procedure At time of permanent Before wound closure Sequence relief Count Results Correct, surgeon Correct, surgeon Correct, surgeon notified notified notified If Incorrect or Waived complete the Counts Action Taken form: If Intentional Retention, complete the Intential Retention form: Counts Performed By Count Performed By SHAY TRAN DANNY, SCRUB VARNEY, DANNY, SCRUB (Scrub) TECH TECH Count Performed By MACY SANCHEZ RN LEININGER, SUSAN, RN Davis, Aleitha E, RN (RN) Last Modified By: MACY SANCHEZ RN LONGSWORTH, GARY, RN LONGSWORTH, GARY, RN 01/30/19 15:16:17 01/30/19 17:14:18 01/30/19 17:15:07 [facility] IntraOp Counts Verification Audit 01/30/19 17:15:07 On Site Services Specialist: ALBERTINA Modifier: LONGGA <+> 3 Procedure <+> 3 Count Type <+> 3 Counts Verification Sequence <+> 3 Count Results <+> 3 Count Performed By (Scrub) <+> 3 Count Performed By (RN) 01/30/19 17:14:18 On Site Services Specialist: ALBERTINA Modifier: LONGGA <+> 2 Procedure <+> 2 Count Type <+> 2 Counts Verification Sequence <+> 2 Count Results <+> 2 Count Performed By (Scrub) <+> 2 Count Performed By (RN) 01/30/19 15:16:17 On Site Services Specialist: ALBERTINA Modifier: LONGGA 1 <*> Procedure Patella Tendon Repair 1 <+> Count Performed By (Scrub) [facility] IntraOp Counts Final Entry 1 Procedure Patella Tendon Repair Final Count Info Count Type Sponge, Sharps, Miscellaneous Counts Verification Skin Closure/end of Sequence procedure Count Results Correct, surgeon notified Counts Performed By Count Performed By RICK FERRERA SCRUB (Scrub) TECH Count Performed By Mady Berry RN (RN) Last Modified By: MACY SANCHEZ RN 01/30/19 17:15:22 [facility] IntraOp Cultures and Spec Summary Entry 1 Cultrures and Specimens Specimen Ordered: Yes Test(s) Routine/Path-Lab Requested/Final Disposition Last Modified By: MACY SANCHEZ RN 01/30/19 15:16:20 [facility] IntraOp Departure from OR Entry 1 Integumentary Assessment Integumentary WDL Assessment WDL Transfer/Handoff Transfer to PACU Phase I Handoff Method Bedside/Face to face Post-op Transport Bed (including Via specialty) Patient Transport Mady Berry RN, Accompanied by NICK KERN DO-ANS Last Modified By: MACY SANCHEZ RN 01/30/19 17:15:43 [facility] IntraOp Departure from OR Audit 01/30/19 17:15:43 On Site Services Specialist: ALBERTINA Modifier: LONGGA <+> 1 Patient Transport Accompanied by [facility] IntraOp Drains and Tubes Entry 1 Device Type Hemovac Drain/Tube Activity Inserted Device Location RIGHT KNEE Method of Drainage Compression Last Modified By: MAYC SANCHEZ RN 01/30/19 17:24:02 [facility] IntraOp Dressing and Packing Entry 1 Type Dressing Location OPSITE Wound Dressing Item Xeroform, 4x4's Supplemental Cast, fiberglass, Applications Cervical Collar Applied By OLEG BETH PA-C Last Modified By: MACY SANCHEZ RN 01/30/19 17:23:34 [facility] IntraOp Dressing and Packing Audit 01/30/19 17:23:34 On Site Services Specialist: ALBERTINA Modifier: LONGGA <+> 1 Wound Dressing Item <+> 1 Applied By <+> 1 Supplemental Applications [facility] IntraOp Fire Risk Assessment Entry 1 Fire Info Surgical Site or 0- No Incision Above the Xyphoid Open O2 Source 0- No (Mask or Cannula) Available Ignition 1- Yes (ESU, Laser, Light Source) Fire Risk 1 Assessment Score Fire Score Fire Risk Yes Assessment Complete Fire Risk MACY SANCHEZ RN Assessment Verified By Fire Risk 01/30/19 14:27:00 Assessment Verified Date/Time Fire Risk Standard Fire Yes Safety Precautions Followed Last Modified By: MACY SANCHEZ RN 01/30/19 15:06:54 [facility] IntraOp Fire Risk Assessment Audit 01/30/19 15:06:54 On Site Services Specialist: ALBERTINA Modifier: LONGGA <+> 1 Fire Risk Assessment Complete <+> 1 Fire Risk Assessment Verified By <+> 1 Fire Risk Assessment Verified Date/Time [facility] IntraOp General Case Product Development Consultant 1 Case Information OR OR 05 [facility] Case Level 1 Room Verified Yes Wound Class I - Clean Specialty SN Orthopedic Anesthesia Type General ASA Class 3 Diagnosis Preop Diagnosis RIGHT PATELLAR TENDON RUPTURE Postop Same As Preop Yes Postop Diagnosis RIGHT PATELLAR TENDON RUPTURE Last Modified By: MACY SANCHEZ RN 01/30/19 15:12:52 [facility] IntraOp General Case Data Audit 01/30/19 15:12:52 On Site Services Specialist: ALBERTINA Modifier: LONGGA <+> 1 Preop Diagnosis <+> 1 Postop Diagnosis [facility] IntraOp Implant Log Entry 1 Entry 2 Entry 3 Type Implant (Synthetic) Implant (Synthetic) Implant (Synthetic) Implant Log Implant Type Mesh Bone Cement Hardware Tissue Implant Type Implant MESH KARLA FLAT SHT CEMENT BONE [place] HV SCR ANDRAE FT [id number] NS Identification [id number] Description Implant Quantity 1 1 1 Implant Site RIGHT KNEE RIGHT KNEE RIGHT KNEE Implant Identification Model Number Implant Identification Serial Number Implant [id number] Identification Lot Number Implant Cr :Lottie Collins Surg:Encore Synthes:Synthes [place] Identification Med:Josemanuel Community Engagement Representative Name: Implant [id number] Identification Catalog Number Implant Size Implant Has an Expiration Date Implant Expiration 01/30/22 04/27/20 Date Wasted Radioactive Material Time Implanted Tissue Implant Continue for Tissue Implant Documentation Tissue Identification Number Graft Prep Per Community Engagement Representative Instructions: Tissue Preparation Method: Reconstitution Solution: Reconstitution Solution Lot Number Reconstitution Solution Expiration Date: Thawing Solution Thawing Solution Lot Number Thawing Solution 01/30/19 Expiration Date Preparation Materials, Other Preparation Materials, Other Lot Number Preparation Materials, Other Expiration Date Tissue Prepared/Processed By Community Engagement Representative Paperwork Completed Implant Type Comment Last Modified By: MACY SANCHEZ RN LONGSWORTH, GARY, RN LONGSWORTH, GARY, RN 01/30/19 16:06:53 01/30/19 15:33:59 01/30/19 16:06:53 Entry 4 Type Implant (Synthetic) Implant Log Implant Type Hardware Tissue Implant Type Implant WASHR 10MM SCR ANDRAE Identification 4.5MM [id number] Description Implant Quantity 1 Implant Site RIGHT KNEE Implant Identification Model Number Implant Identification Serial Number Implant Identification Lot Number Implant Synthes:Synthes Usa Identification Community Engagement Representative Name: Implant [id number] Identification Catalog Number Implant Size Implant Has an Expiration Date Implant Expiration Date Wasted Radioactive Material Time Implanted Tissue Implant Continue for Tissue Implant Documentation Tissue Identification Number Graft Prep Per Community Engagement Representative Instructions: Tissue Preparation Method: Reconstitution Solution: Reconstitution Solution Lot Number Reconstitution Solution Expiration Date: Thawing Solution Thawing Solution Lot Number Thawing Solution Expiration Date Preparation Materials, Other Preparation Materials, Other Lot Number Preparation Materials, Other Expiration Date Tissue Prepared/Processed By Community Engagement Representative Paperwork Completed Implant Type Comment Last Modified By: MACY SANCHEZ RN 01/30/19 16:16:49 [facility] IntraOp Implant Log Audit 01/30/19 16:16:49 On Site Services Specialist: LONGGA Modifier: LONGGA <+> 4 Implant Identification Description <+> 4 Implant Identification Community Engagement Representative Name: <+> 4 Implant Site <+> 4 Implant Quantity <+> 4 Implant Identification Catalog Number <+> 4 Implant Type <+> 4 Type 01/30/19 16:06:53 On Site Services Specialist: LONGGA Modifier: LONGGA 1 <*> Implant Identification Description MESH KARLA FLAT [facility] [id number] <*> Implant Site RIGHT PATELLA <+> 3 Implant Identification Description <+> 3 Implant Identification Community Engagement Representative Name: <+> 3 Implant Site <+> 3 Implant Quantity <+> 3 Implant Identification Catalog Number <+> 3 Implant Type <+> 3 Type 01/30/19 15:33:59 On Site Services Specialist: LONGGA Modifier: LONGGA <+> 2 Implant Identification Description <+> 2 Implant Identification Lot Number <+> 2 Implant Identification Community Engagement Representative Name: <+> 2 Implant Expiration Date <+> 2 Implant Site <+> 2 Implant Quantity <+> 2 Implant Identification Catalog Number <+> 2 Implant Type <+> 2 Thawing Solution Expiration Date <+> 2 Type [facility] IntraOp Intraoperative Assessment Entry 1 Valid History / Yes Physical in Chart Preoperative Yes Checklist Reviewed/Evaluated Patient is Latex No Sensitive Present Upon IVs Arrival to OR Last Modified By: MACY SANCHEZ RN 01/30/19 15:13:06 [facility] IntraOp Intraoperative Equipment Entry 1 Equipment Intraop Monitoring Electrocardiogram Three lead placement (ECG) Electrode Placement Antiembolic Devices Antiembolic Devices Sequential compression device, knee high Antiembolic Device Left Location Antiembolic Device [id number] ID Number Scopes Photo/Video Documentation Last Modified By: MACY SANCHEZ RN 01/30/19 15:14:46 [facility] IntraOp Patient Positioning Entry 1 Procedure Patella Tendon Repair Body Position Supine Left Arm Position Secured on padded arm board Right Arm Position Secured on padded arm board Left Leg Position Uncrossed, parallel Right Leg Position Held on field Feet Uncrossed Yes Pressure Points Yes Checked Positioning Devices Arm Board, Safety Strap, Chest Positioned By MACY SANCHEZ RN, BELEM MURGUIA FA, JONG SANTACRUZ MD-ORT Position Verified Positioning Yes Verified by Anesthesia Positioning Yes Verified by Surgeon Last Modified By: MACY SANCHEZ RN 01/30/19 15:13:58 [facility] IntraOp Sign In Entry 1 Patient, Site, Yes Procedure Identified Surgical Consent Yes Confirmed Surgical Site Yes Marked by person performing procedure Medication Checks Yes Completed Allergies Yes Airway Difficult No Airway/Aspiration Risk Difficult Yes Airway/Aspiration Intervention Equipment Available Blood Loss Risk No Blood Loss No Intervention Equipment Prepared and Ready Blood Identifiers Not applicable Verified Per Policy Hypothermia Risk Yes Warming Measures Yes Taken Last Modified By: MACY SANCHEZ RN 01/30/19 15:14:24 [facility] Intra Op Sign Out Entry 1 RN Confirmation Surgical Yes Procedure(s) Identified Instrument, Sponge Yes and Sharps Counts Correct/Documented Equipment Problems N/A Documented Specimen Labeled Yes Correctly Urinary Catheter N/A Documented in IView Alvarado Patient Yes Recovery Concerns Reviewed with Anesthesia Provider, Surgeon and RN Alvarado Patient Yes Management Concerns Reviewed with Anesthesia Provider, Surgeon and RN Safety Checklist Yes Elements Complete? RN Sign Out Mady Berry RN Signature RN Sign Out 01/30/19 17:46:00 Signature Date/Time Plan of Care Outcome - Fire Risk OUTCOME STATEMENT: Goal met Patient is free from injury related to surgical fire Plan of Care Outcome - Pt Positioning OUTCOME STATEMENT: Goal met Absence of signs and symptoms of positioning injury. Plan of Care Outcome - Skin Prep OUTCOME STATEMENT: Goal met Intraoperative care is consistent with measures to prevent infection Plan of Care Outcome - Xray/Images OUTCOME STATEMENT: N/A Absence of observable signs or symptoms of radiation injury Plan of Care Outcome - Counts OUTCOME STATEMENT: Goal met Absence of signs and symptoms of injury related to extraneous objects Last Modified By: MACY SANCHEZ RN 01/30/19 18:04:01 [facility] Intra Op Sign Out Audit 01/30/19 18:04:01 On Site Services Specialist: ALBERTINA Modifier: LONGGA <+> 1 OUTCOME STATEMENT: Absence of signs and symptoms of injury related to extraneous objects <+> 1 OUTCOME STATEMENT: Absence of signs and symptoms of positioning injury. <+> 1 OUTCOME STATEMENT: Absence of observable signs or symptoms of radiation injury <+> 1 OUTCOME STATEMENT: Patient is free from injury related to surgical fire <+> 1 OUTCOME STATEMENT: Intraoperative care is consistent with measures to prevent infection 01/30/19 17:46:25 On Site Services Specialist: ALBERTINA Modifier: LONGGA 1 <*> RN Sign Out Signature TANMAY SU RN 1 <+> RN Sign Out Signature Date/Time [facility] IntraOp Skin Prep Entry 1 Procedure Patella Tendon Repair Prep Area RIGHT LEG Intraop Prep Prep Agents Chloraprep Prep by MACY SANCHEZ RN Hair Removal Last Modified By: MACY SANCHEZ RN 01/30/19 15:16:03 [facility] IntraOp Surgical Procedures Entry 1 Procedure Patella Tendon Repair Additional RIGHT PATELLAR TENDON Procedure RECONSTRUCTION Description Primary Procedure Yes Primary Surgeon JONG SANTACRUZ MD-ORT Start 01/30/19 14:37:00 Stop 01/30/19 17:46:00 Anesthesia Type General Specialty SN Orthopedic Wound Class I - Clean Last Modified By: MACY SANCHEZ RN 01/30/19 17:46:26 [facility] IntraOp Surgical Procedures Audit 01/30/19 17:46:26 On Site Services Specialist: ALBERTINA Modifier: LONGGA <+> 1 Stop [facility] IntraOp Time Out Entry 1 Procedure to be Patella Tendon Repair Performed Time Out Time Out Pause Time 01/30/19 14:36:00 All activity Yes suspended (unless life threatening emergency) Team Verbally Correct patient Confirms Information identity, Correct side and site are marked, Consent form is present and accurate, Agreement on the procedure to be done, Correct patient position, Relevant images/results properly labeled/appropriately displayed, Confirm antibiotics have been administered, Confirm the skin prep has dried, Confirm prosthesis/implant/devic e is present, Performed in location of procedure after prepped/draped, Performed before each procedure if multiple procedures Antibiotic Yes Prophylaxis Administered Or In Progress Within the Last 60 Minutes Beta Cherelle Yes Administered Venous Yes Thromboembolism Prophylaxis Required Anticipated Critical Events Surgeon None expected Anesthesia Provider None expected Nursing Assures Sterility of instruments, Implant Availability Essential Imaging Yes Labeled and Displayed Last Modified By: MACY SANCHEZ RN 01/30/19 15:07:30 [facility] IntraOp Tourniquet Entry 1 Type Pneumatic Serial/Unit Number 2 Setting 350 mmHg Pheumatic Yes Tourniquet Checked Per Protocol Size 42 inches Placement Thigh, right upper Skin Protection - Yes Padded Under Cuff Applied By BELEM MURGUIA FA Times Start Time 01/30/19 14:37:00 Stop Time 01/30/19 16:36:00 Last Modified By: MACY SANCHEZ RN 01/30/19 16:50:58 [facility] IntraOp Tourniquet Audit 01/30/19 16:50:58 On Site Services Specialist: LONGGA Modifier: LONGGA <+> 1 Stop Time Case Comments <None> Finalized By: Vivien Lopez, RN Document Signatures Signed By: MACY SANCHEZ RN 01/30/19 18:04 Vivien Lopez RN 01/31/19 09:02 Unfinalized History Date/Time Username Reason for Unfinalizing Freetext Reason for Unfinalizing 01/31/19 09:01 [place]ROE Chart Audit documented in this encounter Plan of Treatment Not on file documented as of this encounter Visit Diagnoses Not on filedocumented in this encounter Care Teams Computer Support Analyst Relationship Specialty Start Date End Date Juan José Kendall MD [address] [facility] [address] [place] [address] PCP - General Family Medicine 12/25/22 Juan José Kendall MD [address] [facility] [address] [place] [id number] Referring Physician Family Medicine 12/25/22 documented as of this encounter
--- OUTSIDE RECORDS SUMMARY | 2024-03-11 09:14 | XMS_ITS | Encounter Summary ---
Author Organization [facility] Address [address] [place] [address] Care Team Providers Care Sequencing Machine Operator Name Role Phone Unavailable Primary Care Provider Unavailabl e Encounter Details Date Type Department Care Team (Late st Contact Info) Description 01/30/2019 Historic Encounter [facility] Radiology [address] [place] [address] Maryellen Springer MD [facility] [place] [address] Social History Tobacco Use Types Packs/Day Years [...] Procedure Name Priority Date/Time Associated Diagnosis Comments FL ENGRAVER HAND SOFT METALS IN OR 30 MINUTE INCREMENTS Routine 01/30/2019 5:30 PM EDT documented in this encounter Results * FL tobacco grader in or 30 minute increments (01/30/2019 5:30 PM EDT) Anatomical Region Laterality Modality Radiographic Pattie ging 01/30/2019 5:30 PM EDT Narrative 01/30/2019 10:46 PM EDT Fluoroscopy less than 1 hour HISTORY: Provision of fluoroscopy. Patellar tendon reconstruction. FINDINGS: Fluoroscopy was provided in the OR for the clinical service. Seconds of fluoroscopy utilized: Not recorded. Cc of contrast utilized: 0 Number of images obtained: One IMPRESSION: Provision of fluoroscopy as detailed. Procedure Note Maryellen Springer MD - 07/21/2022 Fluoroscopy less than 1 hour HISTORY: Provision of fluoroscopy. Patellar tendon reconstruction. FINDINGS: Fluoroscopy was provided in the OR for the clinical service. Seconds of fluoroscopy utilized: Not recorded. Cc of contrast utilized: 0 Number of images obtained: One IMPRESSION: Provision of fluoroscopy as detailed. us Maryellen Springer MD IMG FLUOROSCOPY ORDERABLES F inal Result documented in this encounter Visit Diagnoses Not on filedocumented in this encounter
--- OUTSIDE RECORDS SUMMARY | 2024-03-11 09:14 | XMS_ITS | Encounter Summary ---
Author Organization [facility] Address [address] [place] [address] Care Team Providers Care Net Software Architect Name Role Phone Unavailable Primary Care Provider Unavailabl e Encounter Details Date Type Department Care Team (Late st Contact Info) Description 01/30/2019 Historic Encounter [address] [address] Provider, [facility] Historical Social History [...] Name Priority Date/Time Associated Diagnosis Comments CULTURE, WOUND ([facility] DATA CONV) Routine 01/30/2019 2:53 PM EDT documented in this encounter Results * CULTURE, WOUND ([facility] DATA CONV) (01/30/2019 2:53 PM EDT) Final Light Growth Methicillin-Res istant Staphylococcus aureus Resistant organism requires isolation protocol. Pre Light Growth Staphylococcus aureus Pre Culture in progress GS Few White Blood Cells No organisms seen. STRUCTURE OF RIGHT KNEE REGION / Unknown 01/30/2019 2:53 PM EDT 01/30/2019 10:08 PM EDT [facility] Historical Provider BODY FLUIDS AND STOOLS ORDERABLES Final Result [facility] [address] [phone] documented in this encounter Visit Diagnoses Not on filedocumented in this encounter
--- OUTSIDE RECORDS SUMMARY | 2024-03-11 09:14 | XMS_ITS | Encounter Summary ---
Author Organization [email or web address] Address [address] [place] [address] Care Team Providers Care Boiler Coverer Helper Name Role Phone Juan José Kendall MD Primary Care Provider +- [phone] Juan José Kendall MD Unavailable [phone] Encounter Details Date Type Department Care Team (Late st Contact Info) Description 02/01/2019 Transcribed Document [facility] [place] [address] [place] [address] ProviderLaurie MD [address] [place], [place] [id number] Social History Tobacco Use Types Packs/Day Years Used Date Smoking Tobacco: Never Assessed Comments Unknown Sex and Gender Information Value Date Recorded Sex Assigned at Not on file Legal Sex Female 2:23 PM CDT Gender Identity Not on file Sexual Orientation Not on file documented as of this encounter Miscellaneous Notes * Cerner Conversion Note - Laurie ProviderMD - 02/01/2019 10:05 AM CDT Treatment Intervention, PT Entered On: 02/01/2019 13:33 EDT Performed On: 02/01/2019 10:05 EDT by Bethany Pope, Supervisor Title Lead General Information, PT Visit Type, PT : Treatment Note Patient Orders : Order Date Order Ordering 01/30/2019 19:01 PT Evaluation and Treatment Ordered By: JONG SANTACRUZ MD-ORJasmine 01/30/2019 19:01 PT Treatment Instructions Ordered By: JONG SANTACRUZ MD-ORT 01/30/2019 19:01 PT Treatment Instructions Ordered By: JONG SANTACRUZ MD-ORT 01/31/2019 10:44 PT Additional Treatment Ordered By: LINDA BEVERLY, PT Active Diagnoses : 01/30/2019 12:00 Encounter for [...] Pure hypercholesterolemia, unspecified Therapy Diagnosis, PT : Reduced mobility Admission Date : 01/31/2019 09:58 Assisted by, PT : Occupational Therapist Personal Devices : Personal Devices Glasses Assistive Devices : Assistive Devices Brace Precautions in Place : Fall prevention measures Isolation Maintained : Contact Bethany Pope Supervisor Title Lead - 02/01/2019 13:23 EDT General Status Patient Received Status : Supine in bed, Bed alarm activated, Other: SCUDS, IV, . Treatment Start Time : 02/01/2019 9:36 EDT Patient Left Status : Supine in bed, Bed alarm activated, RN/PCT informed, Family/Visitors at bedside, Communication board completed, All needs met and within reach, Other: SCUDS, IV. RN/PCT Informed Comment : LISBETH stanton'vianney PT. Treatment End Time : 02/01/2019 10:05 EDT Treatment Time : 29 Minute(s) Bethany Pope Supervisor Title Lead - 02/01/2019 13:23 EDT Edu Topics Physical Therapy Education Grid Balance Training : Needs further teaching, Needs reinforcement Bed Mobility Training : Needs further teaching, Needs reinforcement Gait Training : Needs further teaching, Needs reinforcement Home Program/Exercises : Needs further teaching, Needs reinforcement Positioning : Needs further teaching, Needs reinforcement Safety : Needs further teaching Therapeutic Exercises : Needs further teaching, Needs reinforcement Transfer Training : Needs further teaching, Needs reinforcement Bethany Pope Supervisor Title Lead - 02/01/2019 13:23 EDT Plan of Care, PT PT Tx Plan/Goals Established w Patient : Yes Bethany Pope Supervisor Title Lead - 02/01/2019 13:23 EDT Senior Living Goals Other PT LTG Grid Goal #1 Goal #2 Other : Patient will complete bed to chair transfer with RW and CGA/min assist x 1 person. Patient will complete supine to sit with leg hatch boss and CGA. Date to Meet : 02/03/2019 EDT 02/03/2019 EDT Goal Status : Progressing, continue Progressing, continue Bethany Pope Supervisor Title Lead - 02/01/2019 13:23 EDT Bethany Pope Supervisor Title Lead - 02/01/2019 13:23 EDT Treatment Note Subjective Comment : Pt agreeable to therapy. Patient's Response to Treatment : Fair, self limiting. Additional Objective Information : Pt completed bed mobility from supine to sit with Hilary with BLE and from sit to supine modAx2. Pt performed sit <>stand from elevated bed with minAx2 and transfer from commode modAx2. VCs with sequencing, hand placement, safety and hand placement. Pt is high fall risk. Pt could not safely transfer [facility] after commode transfer due to fatigue and poor baalnce. Assessment : Pt did not meet any LTGs. She is very weak and high fall risk. Plan for Treatment : Continue per POC. Bethany Pope Supervisor Title Lead - 02/01/2019 13:23 EDT Pain Assessment Pain Scaled Used : FACES Pain Score Pre-Intervention : 4 Pain Score During-Intervention : 4 Pain Score Post-Intervention. : 4 Bethany Pope Supervisor Title Lead - 02/01/2019 13:23 EDT Image 1 - Images currently included in the form version of this document have not been included in the text rendition version of the form. [place] PT Charges PT Ther Activities Ea 15 Min : 2 Bethany Pope Supervisor Title Lead - 02/01/2019 13:23 EDT documented in this encounter Plan of Treatment Not on file documented as of this encounter Visit Diagnoses Not on filedocumented in this encounter Care Teams Boiler Coverer Helper Relationship Specialty Start Date End Date Juan José Kendall MD [address] [place] [address] PCP - General Family Medicine 12/25/22 Juan José Kendall MD [address] [place] [address] Referring Physician Family Medicine 12/25/22 documented as of this encounter
--- OUTSIDE RECORDS SUMMARY | 2024-03-11 09:14 | XMS_ITS | Encounter Summary ---
Author Organization [employer] [facility] Address [address] [place] [address] Care Team Providers Care Abap Developer Name Role Phone Juan José Kendall MD Primary Care Provider +- [phone] Juan José Kendall MD Unavailable [phone] Encounter Details Date Type Department Care Team (Late st Contact Info) Description 02/01/2019 Transcribed Document [facility] Family Medicine [facility] [place] [place] [address] ProviderLaurie MD [address] [place] [address] Social History Tobacco Use Types Packs/Day Years Used Date Smoking Tobacco: Never Assessed Comments Unknown Sex and Gender Information Value Date Recorded Sex Assigned at Not on file Legal Sex Female 2:23 PM CDT Gender Identity Not on file Sexual Orientation Not on file documented as of this encounter Miscellaneous Notes * Cerner Conversion Note - Laurie ProviderMD - 02/01/2019 6:06 PM CDT Pain Assessment Entered On: 02/02/2019 0:55 EDT Performed On: 02/01/2019 23:17 EDT by Lenora Hong RN Intervention Information: tapentadol Performed by Lenora Hong RN on 02/01/2019 22:17:00 EDT tapentadol,100mg Oral,Pain (Moderate 4-6) Pain Assessment Pain Assessment : Follow-up assessment Pain Scale Goal : 4 Pain Scale Used : 0-10 Scale Lenora Hong RN - 02/02/2019 0:55 EDT Pain Scale Intensity : 2 Lenora Hong RN - 02/02/2019 0:55 EDT Image 4 - Images currently included in the form version of this document have not been included in the text rendition version of the form. documented in this encounter Plan of Treatment Not on file documented as of this encounter Visit Diagnoses Not on filedocumented in this encounter Care Teams Abap Developer Relationship Specialty Start Date End Date Juan José Kendall MD [address] [facility] [address] [place] [address] PCP - General Family Medicine 12/25/22 Juan José Kendall MD [address] [facility] [address] [place] [address] Referring Physician Family Medicine 12/25/22 documented as of this encounter
--- OUTSIDE RECORDS SUMMARY | 2024-03-11 09:14 | XMS_ITS | Encounter Summary ---
Author Organization [facility] [facility] [employer] Address [address] [address] Care Team Providers Care Organisational Psychologist Name Role Phone Juan José Kendall MD Primary Care Provider +- [phone] Juan José Kendall MD Unavailable [phone] Encounter Details Date Type Department Care Team (Late st Contact Info) Description 02/01/2019 Transcribed Document [facility] [place] [facility] [place] [address] ProviderLaurie MD [address] [place] [id number] Social History Tobacco Use Types Packs/Day Years Used Date Smoking Tobacco: Never Assessed Comments Unknown Sex and Gender Information Value Date Recorded Sex Assigned at Not on file Legal Sex Female 2:23 PM CDT Gender Identity Not on file Sexual Orientation Not on file documented as of this encounter Miscellaneous Notes * Cerner Conversion Note - Laurie ProviderMD - 02/01/2019 8:00 PM CDT Pain Assessment Entered On: 02/02/2019 0:55 EDT Performed On: 02/01/2019 23:17 EDT by Lenora Hong RN Intervention Information: acetaminophen Performed by Lenora Hong RN on 02/01/2019 22:17:00 EDT acetaminophen,500mg Oral Pain Assessment Pain Assessment [...] on filedocumented in this encounter Care Teams Organisational Psychologist Relationship Specialty Start Date End Date Juan José Kendall MD [address] [facility] [address] [place] [address] PCP - General Family Medicine 12/25/22 Juan José Kendall MD [address] [place] [address] [address] [place] [address] Referring Physician Family Medicine 12/25/22 documented as of this encounter
--- OUTSIDE RECORDS SUMMARY | 2024-03-11 09:14 | XMS_ITS | Encounter Summary ---
Author Organization [employer] Address [address] [place] [address] Care Team Providers Care B2B Outside Sales Representative Name Role Phone Juan José Kendall MD Primary Care Provider +- [phone] Juan José Kendall MD Unavailable [phone] Encounter Details Date Type Department Care Team (Late st Contact Info) Description 02/01/2019 Transcribed Document [facility] [place] Family Medicine [facility] [place] [address] ProviderLaurie MD [address] [place] [address] Social History Tobacco Use Types Packs/Day Years Used Date Smoking Tobacco: Never Assessed Comments Unknown Sex and Gender Information Value Date Recorded Sex Assigned at Not on file Legal Sex Female 2:23 PM CDT Gender Identity Not on file Sexual Orientation Not on file documented as of this encounter Miscellaneous Notes * Cerner Conversion Note - Historical ProviderMD - 02/01/2019 2:00 AM CDT Escort Car Driver Details Entered On: 02/01/2019 0:08 EDT Performed On: 02/01/2019 2:00 EDT by Dayday Crump RN Order [...] Line : No Dayday Crump RN - 02/01/2019 0:08 EDT documented in this encounter Plan of Treatment Not on file documented as of this encounter Visit Diagnoses Not on filedocumented in this encounter Care Teams B2B Outside Sales Representative Relationship Specialty Start Date End Date Juan José Kendall MD [address] [facility] [address] [place] [address] PCP - General Family Medicine 12/25/22 Juan José Kendall MD [address] [facility] [address] [place] [address] Referring Physician Family Medicine 12/25/22 documented as of this encounter
--- OUTSIDE RECORDS SUMMARY | 2024-03-11 09:14 | XMS_ITS | Encounter Summary ---
Author Organization [employer] In [employer] Address [address] [place] [address] Care Team Providers Care Carrier Packer Name Role Phone Juan José Kendall MD Primary Care Provider + [phone] Juan José Kendall MD Unavailable [phone] Encounter Details Date Type Department Care Team (Late st Contact Info) Description 01/30/2019 Transcribed Document [facility] [place] Family Medicine [facility] [place] [address] ProviderLaurie MD [address] [place] [address] [id number] Social History Tobacco Use Types Packs/Day Years Used Date Smoking Tobacco: Never Assessed Comments Unknown Sex and Gender Information Value Date Recorded Sex Assigned at Not on file Legal Sex Female 2:23 PM CDT Gender Identity Not on file Sexual Orientation Not on file documented as of this encounter Miscellaneous Notes * Cerner Conversion Note - Laurie Garcia MD - 01/30/2019 7:40 PM CDT Patient: TRUDI BLAIR Age: 63 years Sex: Female : 1955 Associated Diagnoses: 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 who is after finishing the course of IV antibiotics and became free of infection and losing tremendous amount of weight as currently her BMI is 34.5, underwent left total knee arthroplasty revision after removal and placing her left lower extremity in a cast, by Dr. Guerrero. Postoperative Information Patient had surgery today and is recovering well. patient is awake, alert, cooperative, responsive, and is under no acute distress. Currently Patient is on pain medication as recommended by Dr. Guerrero. Patient's pain is well controlled. Patient is on DVT prophylaxis and also on scheduled bowel regimen. Urine out-put is adequate. PT/OT onboard. Review of Systems Constitutional: No fever, No chills. Eye: No visual disturbances. Ear/Nose/Mouth/Throat: No nasal congestion, No sore throat. Respiratory: No shortness of breath, No cough. Cardiovascular: No chest pain, No tachycardia. Gastrointestinal: No nausea, No vomiting, No abdominal pain. Genitourinary: No change in urine stream. Hematology/Lymphatics: No bleeding tendency. Endocrine: No polyuria, No cold intolerance, No heat intolerance. Immunologic: Negative. Musculoskeletal: Right lower extremity in a cast. Integumentary: Negative. Neurologic: No confusion, No numbness, No tingling, No headache. Psychiatric: No anxiety, No depression. All other systems are negative Health Status Allergies: Allergies (1) Active Reaction Biaxin Acid reflux Current medications: Home Medications (9) Active acetaminophen 500 mg oral tablet 500 mg = 1 Tab, Oral, Q6HInt atorvastatin 20 mg oral tablet 20 mg = 1 Tab, Oral, At Bedtime ibuprofen 200 mg, Oral, BID metoclopramide 10 mg oral tablet 10 mg = 1 Tab, Oral, BID Metoprolol Succinate ER 25 mg oral tablet, extended release 50 mg = 2 Tab, Oral, Daily pantoprazole 40 mg oral delayed release tablet 40 mg = 1 Tab, Oral, Daily potassium chloride 20 mEq oral tablet, extended release 20 mEq = 1 Tab, Oral, BID topiramate 25 mg oral capsule 50 mg = 2 Cap, Oral, BID traZODone 50 mg oral tablet 50 mg = 1 Tab, PRN, Oral, At Bedtime , Medications (32) Active Scheduled: (12) #NaCl 0.9% *FLUSH* inj 10 mL 10 mL, IV Push, Q12H acetaminophen 500 mg tab 500 mg 1 Tab, Oral, Q6HInt atorvastatin 20 mg tab 20 mg 1 Tab, Oral, At Bedtime ceFAZolin/D5w 2 Gram 50 mL, IV Piggyback, 1-Time celecoxib 200 mg cap 200 mg 1 Cap, Oral, [id number] enoxaparin 30 mg/0.3 ml inj 30 mg 0.3 mL, SubCutaneous, [id number] enoxaparin 40 mg/0.4 mL inj 40 mg 0.4 mL, SubCutaneous, [id number] metoclopramide 10 mg tab 10 mg 1 [...] mL 1,000 mL, IntraVENous, 125 mL/Hr PRN: (19) #NaCl 0.9% *FLUSH* inj 3 mL 5 mL, IntraVENous, See Comment al hydrox/mag hydrox/simeth 30 mL liq 30 mL, Oral, Q6H albuterol-ipratropium inh 3 mL 3 mL, Nebulized Inhalation, Q4H bisacodyl 10 mg supp 10 mg 1 Supp, Rectal, Daily diphenhydrAMINE 25 mg tab 25 mg 1 Tab, Oral, On-CALL docusate calcium 240 mg cap 240 mg 1 Cap, Oral, Daily HYDROmorphone 1 mg/1 mL inj 0.5 mg 0.5 mL, IV Push, Q3H magnesium hydroxide 8% liq 30 mL 15 mL, Oral, Q6H metaxalone 800 mg tab 800 mg 1 Tab, Oral, TID ondansetron 4 mg tab 4 mg 1 Tab, Oral, Q6H ondansetron 4 mg/2 mL inj 4 mg 2 mL, IV Push, Q4H oxyCODONE 5 mg tab 5 mg 1 Tab, Oral, Q4H oxyCODONE 5 mg tab 10 mg 2 Tab, Oral, Q4H petrolatum 100% oint 28 g 1 Application, Topical, Daily phenol 1.4% throat spray 5 [place], Oral, Q2H promethazine 25 mg tab 12.5 mg 0.5 Tab, Oral, Q6H promethazine 25 mg/1 mL inj 12.5 mg 0.5 mL, IV Push, Q6H scopolamine 1.5 mg/72 hr patch 1 Patch, TransDermal, Q3Days traZODone 50 mg tab 50 mg 1 Tab, Oral, At Bedtime Problem list: Active Problems (9) Arthritis At risk for sleep apnea Back pain GERD (gastroesophageal reflux disease) High cholesterol History of obstructive sleep apnea HTN (hypertension) MRSA infection Stress incontinence Histories Family History: Family history significant for CAD, HTN and cancer Procedure history: Left patellar tendon reconstruction in the month of 06/2018 at 62 Years. left patellar tendon repair. in the month of 03/2018 at 62 Years. Left total knee replacement in the month of 02/2018 at 62 Years. HYSTERECTOMY. LUMBAR FUSION. SAURABH PLANTAR FASCITIS SX. R TKR. right knee patellar tendon repair. colonoscopy. left total knee replacement. ltk removal with antibiotic spacer placement. left patella surgery left knee. right total knee replacement. patella tendon repair right knee. hysterectomy. lumbar back surgery with fusion. bilateral plantar fascitits release. benign left breast biopsy. Social History Patient is and has only 1 son. There is no history of smoking or drinking alcohol. Physical Examination VS/Measurements Vital Signs/Vital Measures 01/30/2019 18:57 EDT Systolic Blood Pressure 128 mmHg Diastolic Blood Pressure 67 mmHg Mean Arterial Pressure (MAP)-BMDI 79 Temperature Source Oral Temperature Mode Fahrenheit Temperature, Fahrenheit 97.3 Deg F Clinical Temperature, C 36.3 Deg C Heart Rate Monitored 79 bpm Oxygen Saturation 100 % Oxygen Therapy Mode Room air 01/30/2019 18:30 EDT Systolic Blood Pressure 117 mmHg Diastolic Blood Pressure 70 mmHg Mean Arterial Pressure (MAP)-BMDI 84 Pulse Rhythm Regular Heart Rate Monitored 78 bpm Respiratory Rate 20 Breaths/Min Oxygen Saturation 97 % Oxygen Therapy Mode Nasal cannula Oxygen Flow Rate 2 Liter/Min 01/30/2019 18:25 EDT Systolic Blood Pressure 124 mmHg Diastolic Blood Pressure 67 mmHg Mean Arterial Pressure (MAP)-BMDI 82 Pulse Rhythm Regular Heart Rate Monitored 79 bpm Respiratory Rate 16 Breaths/Min Oxygen Saturation 97 % Oxygen Therapy Mode Nasal cannula Oxygen Flow Rate 2 Liter/Min 01/30/2019 18:20 EDT Systolic Blood Pressure 111 mmHg Diastolic Blood Pressure 68 mmHg Mean Arterial Pressure (MAP)-BMDI 80 Pulse Rhythm Regular Heart Rate Monitored 80 bpm Respiratory Rate 16 Breaths/Min Oxygen Saturation 97 % Oxygen Therapy Mode Nasal cannula Oxygen Flow Rate 2 Liter/Min 01/30/2019 18:15 EDT Systolic Blood Pressure 103 mmHg Diastolic Blood Pressure 69 mmHg Mean Arterial Pressure (MAP)-BMDI 83 Pulse Rhythm Regular Heart Rate Monitored 80 bpm Respiratory Rate 18 Breaths/Min Oxygen Saturation 97 % Oxygen Therapy Mode Nasal cannula Oxygen Flow Rate 2 Liter/Min 01/30/2019 18:10 EDT Systolic Blood Pressure 105 mmHg Diastolic Blood Pressure 63 mmHg Mean Arterial Pressure (MAP)-BMDI 84 Pulse Rhythm Regular Heart Rate Monitored 82 bpm Respiratory Rate 13 Breaths/Min LOW Oxygen Saturation 95 % Oxygen Therapy Mode Nasal cannula Oxygen Flow Rate 2 Liter/Min 01/30/2019 18:05 EDT Systolic Blood Pressure 100 mmHg Diastolic Blood Pressure 67 mmHg Mean Arterial Pressure (MAP)-BMDI 76 Pulse Rhythm Regular Heart Rate Monitored 79 bpm Respiratory Rate 18 Breaths/Min Oxygen Saturation 97 % Oxygen Therapy Mode Nasal cannula Oxygen Flow Rate 2 Liter/Min 01/30/2019 18:00 EDT Systolic Blood Pressure 100 mmHg Diastolic Blood Pressure 65 mmHg Mean Arterial Pressure (MAP)-BMDI 76 Temperature Source Temporal artery scanning Temperature Mode Celsius Temperature, Celsius 36.2 Deg C Clinical Temperature, F 97.2 Deg F Pulse Rhythm Regular Heart Rate Monitored 123 bpm HI Respiratory Rate 16 Breaths/Min Oxygen Saturation 92 % LOW Oxygen Therapy Mode Nasal cannula Oxygen Flow Rate 2 Liter/Min 01/30/2019 13:15 EDT Systolic Blood Pressure 119 mmHg Diastolic Blood Pressure 61 mmHg Heart Rate Monitored 86 bpm Respiratory Rate 16 Breaths/Min Oxygen Saturation 98 % Oxygen Therapy Mode Nasal cannula Oxygen Flow Rate 2 Liter/Min 01/30/2019 12:44 EDT Oxygen Therapy Mode Room air 01/30/2019 12:00 EDT Systolic Blood Pressure 135 mmHg Diastolic Blood Pressure 68 mmHg Temperature Source Temporal artery scanning Temperature Mode Fahrenheit Temperature, Fahrenheit 98.0 Deg F Heart Rate Monitored 77 bpm Respiratory Rate 18 Breaths/Min Oxygen Saturation 95 % Oxygen Therapy Mode Room air General: Alert and oriented, No acute distress. Eye: Pupils are equal, round and reactive to light, Normal conjunctiva, Vision unchanged. HENT: Normocephalic, Tympanic membranes are clear, Normal hearing, Oral mucosa is moist, No pharyngeal erythema, No sinus tenderness. Neck: Supple, Non-tender, No carotid bruit, No jugular venous distention, No lymphadenopathy, No thyromegaly. Respiratory: Lungs are clear to auscultation, Respirations are non-labored, Breath sounds are equal, Symmetrical chest wall expansion, No chest wall tenderness. Cardiovascular: Normal rate, Regular rhythm, No murmur, No gallop, Good pulses equal in all extremities, Normal peripheral perfusion, No edema. Gastrointestinal: Soft, Non-tender, Non-distended, Normal bowel sounds, No organomegaly. Genitourinary: No costovertebral angle tenderness, No inguinal tenderness, No urethral discharge, No lesions. Lymphatics: No lymphadenopathy neck, axilla, groin. Musculoskeletal: Left lower extremity in a cast. Integumentary: Warm, [place], Intact, No pallor, No rash. Neurologic: Alert, Oriented, Normal sensory, Normal motor function, No focal deficits, Cranial Nerves II-XII are grossly intact, Normal deep tendon reflexes. Psychiatric: Cooperative, Appropriate mood & affect, Normal judgment, Non-suicidal. Review / Management Results review: Lab results: 01/30/2019 14:53 EDT Fungus Culture See Result (In Progress) . 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 Revision of left total knee arthroplasty after spacer removal - Admitting, Medical. History of left knee MRSA infection - Admitting, Medical. HTN (hypertension) - Admitting, Medical. Hypercholesterolemia - Admitting, Medical. History of obstructive sleep apnea - Admitting, Medical. GERD (gastroesophageal reflux disease) - Admitting, Medical. At risk for sleep apnea - Admitting, Medical. Obesity (BMI 30.0-34.9) - Admitting, Medical. Course: Plan/Respirex @ BS and encourage patient to use. Sleep apnea precautions if needed. C-pap at night if needed. Hold all BP meds if BSP < 130 MMHg. If SBP < 90 mmHg, you may give 500 ml NS IVF over one hour. ACT: CONSULT PT/OT as per Dr. koehler rec. For urinary retention use bladder scanner, you may anchor FC. If no or low UOP you may give 250 mL NS IV over one hour. AM Labs BMP & Hgb/HCT. If pt. spikes fever > 101* F, encourage pt to use Respirex first, then you may give Tylenol 650 mg PO/WY x 1. If no response in 2 hours, you may get blood cx. x2, chest x-ray, sputum CX, S, gram stain x3, UA, C&S. Patient may have chloroseptic spray or throat lozenges for soar throat. DVT prophylaxis. If at any time the HGB is less than 8 type and cross then transfuse 2 units of PRBCs. Premedicate with Tylenol 650 mg PO and Benadryl 25mg PO. Electrolytes Replacement Protocol. -Pain control -DVT prophylaxis -Close monitoring fluid and electrolytes -Fall risk precautions -Sleep apnea precautions -Stress ulcer prophylaxis. Electronically signed by Aleks, [facility] Conversion Pallet Stone Inserter Cerner at 07/24/2022 3:39 PM CDT documented in this encounter Plan of Treatment Not on file documented as of this encounter Visit Diagnoses Not on filedocumented in this encounter Care Teams Carrier Packer Relationship Specialty Start Date End Date Juan José Kendall MD [address] [facility] [address] PCP - General Family Medicine 12/25/22 Juan José Kendall MD [address] [place] [address] Referring Physician Family Medicine 12/25/22 documented as of this encounter
--- OUTSIDE RECORDS SUMMARY | 2024-03-11 09:14 | XMS_ITS | Encounter Summary ---
Author Organization [employer] Address [address] [place] [address] Care Team Providers Care Air Traffic Control Equipment Repairer Name Role Phone Juan José Kendall MD Primary Care Provider [phone]- [phone] Juan José Kendall MD Unavailable [phone] Encounter Details Date Type Department Care Team (Late st Contact Info) Description 01/30/2019 Transcribed Document [facility] [place] [place] Family Medicine [address] [place] [address] ProviderLaurie MD [address] [place], [place] [address]471 Social History Tobacco Use Types Packs/Day Years Used Date Smoking Tobacco: Never Assessed Comments Unknown Sex and Gender Information Value Date Recorded Sex Assigned at Not on file Legal Sex Female 2:23 PM CDT Gender Identity Not on file Sexual Orientation Not on file documented as of this encounter Miscellaneous Notes * Cerner Conversion Note - Historical ProviderMD - 01/30/2019 9:00 PM CDT Pain Assessment Entered On: 01/31/2019 1:07 EDT Performed On: 01/30/2019 22:10 EDT by Dayday Crump RN Intervention Information: celecoxib Performed by Dayday Crump RN on 01/30/2019 21:10:00 EDT celecoxib,200mg Oral Pain Assessment Pain Assessment [...] on filedocumented in this encounter Care Teams Air Traffic Control Equipment Repairer Relationship Specialty Start Date End Date Juan José Kendall MD [address] [place] [address] [address] [place] [address] PCP - General Family Medicine 12/25/22 Juan José Kendall MD [address] [place] [address] [address] [place] [address] Referring Physician Family Medicine 12/25/22 documented as of this encounter
--- OUTSIDE RECORDS SUMMARY | 2024-03-11 09:14 | XMS_ITS | Encounter Summary ---
Author Organization [employer] Address [address] [place] [address] Care Team Providers Care Bus Driver Name Role Phone Juan José Kendall MD Primary Care Provider [phone]- [phone] Juan José Kendall MD Unavailable [phone] Encounter Details Date Type Department Care Team (Late st Contact Info) Description 10/10/2018 Transcribed Document [facility] [place] [facility] [place] [facility] [place] [address] ProviderLaurie MD [address] [place] [address] Social History Tobacco Use Types Packs/Day Years Used Date Smoking Tobacco: Never Assessed Comments Unknown Sex and Gender Information Value Date Recorded Sex Assigned at Not on file Legal Sex Female 2:23 PM CDT Gender Identity Not on file Sexual Orientation Not on file documented as of this encounter Miscellaneous Notes * Cerner Conversion Note - Laurie ProviderMD - 10/10/2018 7:47 AM CDT Care Management Assessment/Plan Entered On: 10/10/2018 7:48 EDT Performed On: 10/10/2018 7:47 EDT by PJ NELSON Care Management Note Care Management Note : 10/10/2018 Discharge summary faxed to [facility]. Auth# [id number]. Care Management Note Report : PJ NELSON - 10/05/18 16:09:42 10/05/2018 Fax received from [facility] with approval for 10/05/2018, with anticipated DC date of tomorrwo, 10/06/2018. Auth# [id number]. CHAYITO CHARLES, RN - 10/05/18 13:15:03 Chayito Charles spoke to Dr. Porter last and he stated that Dr. Guerrero wanted patient to have a follow up with Dr. Edi Robles when patient is discharged. I called Dr. Guerrero's office to see the reason for the follow up and when it needed to be done. He stated that he wanted her to go see Dr. Robles so that he can give Dr. Guerrero recommendations on whether or not the patient needs a fusion or amputation. He stated that he was okay with her going to a [facility] facility and following up with Dr. Robles in 3 weeks then he would see her after that. PJ NELSON - 10/05/18 13:09:24 Follow-up appts scheduled: Dr. Ulloa (ID) 10/19/2018 @ 1315, Dr. Robles (ortho) 10/25/2018 @ 1030. PJ NELSON - 10/05/18 11:30:14 10/05/2018 Call received from [facility], they have received the insurance authorization for admission, milton marinelli to get her tomorrow. Dr. Porter notified, and in agreement. Accepting physician Dr. Ordonez. Call report to [phone]. Fax DC summary to [phone]. [facility] scheduled for 10/06/2018 @ 1300. PJ NELSON - 10/05/18 08:54:39 10/05/2018 Clinical review faxed to [facility] ([phone]) to request coverage for continued LTACH services. Approval pending. Auth# [id number]. PJ NELSON - 10/05/18 08:47:08 Patient/ chose [facility]. Per Ashley, insurance preauth was started, awaiitng response. PJ NELSON - 10/04/18 10:04:33 10/04/2018 Bed offer received from [facility]. Family notified,now requesting to reconsider [facility]. I have explained that we need an answer for which place the prefer so that we can move forward with placement. states he will call both facilities, and they will make a decision. PJ NELSON 10/03/18 15:02:06 10/03/2018 Spoke with [facility], they do not have a contract with [place]. PJ NELSON 10/03/18 14:57:34 10/03/2018 Call received from [facility], they are unable to offer a bed for this patient. Patient and notified. They request a referral be faxed to [facility] (P: [phone] F: [phone]), faxed per their request. Awaiting a call back. PJ NELSON 10/03/18 13:54:20 10/03/2018 Bev Lewis, here to evaluate patient for possible bed placement. PJ NELSON 10/03/18 09:57:17 10/03/2018 Jose, clinical liaison [facility] Don[facility], coming to the unit to eval patient for possible bed placement. Updates faxed per their request. PJ NELSON 09/29/18 16:38:16 09/29/2018 Per ID, abx therapy to stop 10/05/2018. Patient states she is open to rehab, but prefers it be close to her home in [place]. Referrals faxed to Debbie Patricia (Signature liaison), [facility], and [facility]. Awaiting a call back. PJ NELSON 09/28/18 16:26:43 09/28/2018 Fax recieved from [facility] with approval for LTACH services 09/29-10/04. Auth# [id number]. Fax next clinical review to [phone] on 10/05/2018. PJ NELSON 09/28/18 08:24:24 09/28/2018 Clinical review faxed to [facility] ([phone]) to request coverage for continued LTACH services. Approval pending. Auth# [id number]. PJ NELSON 09/21/18 15:48:14 09/21/2018 Fax recieved from [facility] with approval for LTACH coverage 09/22/2018-09/28/2018. Auth# [id number]. Fax next clinical review to [phone] on 09/28/2018. RASHEED NELSONRALPH - 09/21/18 08:22:57 09/21/2018 Clinical review faxed to [facility] ([phone]) to request coverage for continued LTACH services. Approval pending. Auth# [id number]. RASHEED NELSONRALPH - 09/15/18 11:34:17 09/15/2018 Fax recieved from [facility] with approval for LTACH services 09/15-09/21/2018. Auth# [id number]. Fax next clinical review to [phone] on 09/21/2018. PJ NELSON - 09/14/18 08:28:49 09/14/2018 Clinical review faxed to [facility] ([phone]) to request coverage for continued LTACH services. Approval pending. Auth# [id number]. Chuyita Briceno, Clinical Assessment Liaison - 09/09/18 14:03:00 Chuyita Briceno RN spoke with the patient and spouse at bedside. Prior to admission the patient lived at home with spouse. The home has 1 step inside and no steps on the outside. The patient required assistance with all ADLs prior to admission. The patient has never been in a rehab unit or SNF. She has previously used [facility] and prefers to use them again if needed. The patient owns a shower chair, BSC and w/c. The patient has never needed a dialysis clinic. The patient has not fallen in the past 3 months. PCP- Dr. Ranjeet [facility] Orthopedic- Dr. Shay Guerrero [facility]- [facility] Natalia The patient does wish to return home upon discharge but understands that rehab/SNF may be needed. All papers were explained and signed. No other issues. CM will continue to monitor. Documentation Status Complete : Yes PJ NELSON - 10/10/2018 7:47 EDT Electronically signed by [facility], [facility] Conversion Social Media Content Manager Cerner at 07/24/2022 3:36 PM CDT documented in this encounter Plan of Treatment Not on file documented as of this encounter Visit Diagnoses Not on filedocumented in this encounter Care Teams Bus Driver Relationship Specialty Start Date End Date Juan José Kendall MD [address] [facility] [address] [place] [address] PCP - General Family Medicine 12/25/22 Juan José Kendall MD [address] [place] [address] Referring Physician Family Medicine 12/25/22 documented as of this encounter
--- OUTSIDE RECORDS SUMMARY | 2024-03-11 09:14 | XMS_ITS | Encounter Summary ---
Author Organization [employer] Address [address] [place] [address] Care Team Providers Care Barrel Endshaker Adjuster Name Role Phone Juan José Kendall MD Primary Care Provider + [phone] Juan José Kendall MD Unavailable [phone] Encounter Details Date Type Department Care Team (Late st Contact Info) Description 10/07/2018 Transcribed Document [facility] Family Medicine [facility] [place] [address] ProviderLaurie MD [address] [place] [id number] Social History Tobacco Use Types Packs/Day Years Used Date Smoking Tobacco: Never Assessed Comments Unknown Sex and Gender Information Value Date Recorded Sex Assigned at Not on file Legal Sex Female 2:23 PM CDT Gender Identity Not on file Sexual Orientation Not on file documented as of this encounter Miscellaneous Notes * Cerner Conversion Note - Historical ProviderMD - 10/07/2018 8:12 AM CDT Discharge Summary, PT Entered On: 10/07/2018 8:14 EDT Performed On: 10/07/2018 8:12 EDT by TONIE SHELLEY, PT Discharge Summary Reason for Discharge : Discharged from hospital Discharged to, Therapy : Unit, detention Discharge Summary Comment, PT : Pt discharged to SNF. On 10/04 they were ind for supine to long sitting and min assist for long sitting to EOB. They worked on activities at EOB. No goals met. TONIE SHELLEY, PT - 10/07/2018 8:12 EDT Short Term Goals Mobility/Bed Mobility STG PT Grid Goal #1 Goal #2 Activity : Supine to sit Sit to stand Assist : Independent, modified Assist, moderate Date to Meet : 10/18/2018 EDT 10/18/2018 EDT Goal Status : Not met Not met Comment : Re-assess 10/04 TTWB LLE, Re-assess 10/04 TONIE SHELLEY, PT - 10/07/2018 8:12 EDT TONIE SHELLEY, PT - 10/07/2018 8:12 EDT Transfer STG Grid Goal #1 Destination : Wheelchair, standard Type : Stand Pivot Sit Assist : Assist, maximal Equipment : Other: bariatric Rwx Date to Meet : 10/18/2018 EDT Goal Status : Not met Comment : TTWB LLE, Re-assess 10/04 TONIE SHELLEY, PT - 10/07/2018 8:12 EDT Care Home Goals Mobility/Bed Mobility LTG PT Grid Goal #2 Activity : Sit to stand Assist : Assist, moderate Date to Meet : 11/01/2018 EDT Goal Status : Not met Comment : TTWB LLE, Re-assess 09/20 Re-assess 09/20 TTWB LLE, Re-assess 10/04 TONIE SHELLEY, PT - 10/07/2018 8:12 EDT Transfer LTG Grid Goal #1 Goal #2 Goal #3 Destination : Chair, with arms Wheelchair, standard Bed, hospital Type : Stand Pivot Sit Sliding board Sliding board Assist : Assist, moderate Independent, modified Supervision or set-up Equipment : Other: hgada Rwx Other: w/c to bed Date to Meet : 11/01/2018 EDT 10/17/2018 EDT 10/17/2018 EDT Goal Status : Not met Not met Not met Comment : TTWB LLE, Re-assess 10/04 new goal 10/03/18 new goal 10/03/18 TONIE SHELLEY, PT - 10/07/2018 8:12 EDT TONIE SHELLEY, PT - 10/07/2018 8:12 EDT TONIE SHELLEY, PT - 10/07/2018 8:12 EDT documented in this encounter Plan of Treatment Not on file documented as of this encounter Visit Diagnoses Not on filedocumented in this encounter Care Teams Barrel Endshaker Adjuster Relationship Specialty Start Date End Date Juan José Kendall MD [address] [place] [facility] [address] [place] [address] PCP - General Family Medicine 12/25/22 Juan José Kendall MD [address] [place] [facility] [address] [place] [address] Referring Physician Family Medicine 12/25/22 documented as of this encounter
--- OUTSIDE RECORDS SUMMARY | 2024-03-11 09:14 | XMS_ITS | Encounter Summary ---
Author Organization [employer] Address [address] [facility] [place] [address] Care Team Providers Care Automotive General Sales Manager Name Role Phone Unavailable Primary Care Provider Unavailabl e Encounter Details Date Type Department Care Team (Late st Contact Info) Description 01/31/2019 Historic Encounter [address] [address] ProviderTisha Historical Social History Tobacco Use Types Packs/Day [...] Procedure Name Priority Date/Time Associated Diagnosis Comments [facility] ([facility] DATA CONV) Routine 01/31/2019 4:31 AM EDT documented in this encounter Results * (ABNORMAL) [facility] ([facility] DATA CONV) (01/31/2019 4:31 AM EDT) Glucose Level 118(H) 74 - 106 mg/dL 01/31/2019 9:23 AM EDT Comment: [facility] has become aware of sulfasalazine and sulfapyridine [...] Urea Nitrogen 24(H) 7 - 22 mg/dL 01/31/2019 9:23 AM EDT Creatinine Level 1.33(H) 0.55 - 1.02 mg/dL 01/31/2019 9:23 AM EDT Sodium Level 139 136 - 146 mmol/L 01/31/2019 9:23 AM EDT Potassium Level 4.1 3.5 - 5.1 mmol/L 01/31/2019 9:23 AM EDT Chloride Level 106 102 - 112 mmol/L 01/31/2019 9:23 AM EDT Carbon Dioxide Level 22 21 - 32 mmol/L 01/31/2019 9:23 AM EDT Anion Gap 15 9 - 20 01/31/2019 9:23 AM EDT Calcium Level 8.7 8.5 - 10.1 mg/dL 01/31/2019 9:23 AM EDT Bun/Creatinine 18.0 8.0 - 20.0 01/31/2019 9:23 AM EDT eGFR NonAfrican 40(L) >=60 mL/min/1. 73m2 01/31/2019 9:23 AM EDT Comment: GFR <60 suggests chronic kidney disease, if found over 3 month period. GFR <15 indicates renal failure. eGFR 49(L) >=60 mL/min/1. 73m2 01/31/2019 9:23 AM EDT Comment: GFR <60 suggests chronic kidney disease, if found over 3 month period. GFR <15 indicates renal failure. Blood 01/31/2019 4:31 AM EDT 01/31/2019 9:03 AM EDT [facility] Historical Provider LAB BLOOD ORDERABLES Fi nal Result [facility] [address] [place] [address], [facility] [phone] documented in this encounter Visit Diagnoses Not on filedocumented in this encounter
--- OUTSIDE RECORDS SUMMARY | 2024-03-11 09:14 | XMS_ITS | Encounter Summary ---
Author Organization [employer] Address [address] [place] [address] Care Team Providers Care Ride Attendant Name Role Phone Juan José Kendall MD Primary Care Provider +- [phone] Juan José Kendall MD Unavailable [phone] Encounter Details Date Type Department Care Team (Late st Contact Info) Description 01/31/2019 Transcribed Document [facility] [place] Family Medicine [facility] [place] [address] Laurie Garcia MD [address] [place] [id number] Social History Tobacco Use Types Packs/Day Years Used Date Smoking Tobacco: Never Assessed Comments Unknown Sex and Gender Information Value Date Recorded Sex Assigned at Not on file Legal Sex Female 2:23 PM CDT Gender Identity Not on file Sexual Orientation Not on file documented as of this encounter Miscellaneous Notes * Cerner Conversion Note - Laurie Garcia MD - 01/31/2019 8:59 PM CDT Patient: TRUDI BLAIR Age: 63 [...] 30.0-34.9) Author: JONES HIDALGO MD-INT Basic Information awake alert comfortable, asympt. , pain under control, no trouble w. urination. ???Slow mobility from the bed to the chair to the bedside commode ?Had a reconstructive right knee surgery Review of Systems Constitutional: No fever, No chills. Eye: No discharge, No blurring, No double vision, No visual disturbances. Ear/Nose/Mouth/Throat: No nasal congestion, No sore throat. Respiratory: No shortness of breath, No cough. Cardiovascular: No chest pain, No palpitations. Gastrointestinal: No nausea, No vomiting. Genitourinary: No change in urine stream. Musculoskeletal: Negative, Right lower extremity in a cast. Integumentary: Negative. Neurologic: Alert and oriented X4. Health Status Allergies: Allergies (1) Active Reaction Biaxin Acid reflux Current medications: Medications (28) Active Scheduled: (10) #NaCl 0.9% *FLUSH* inj 10 mL 10 mL, IV Push, Q12H acetaminophen 500 mg tab 500 mg 1 Tab, Oral, Q6HInt atorvastatin 20 mg tab 20 mg 1 Tab, Oral, At Bedtime celecoxib 200 mg cap 200 mg 1 Cap, Oral, [id number] enoxaparin 40 mg/0.4 mL inj 40 mg [...] mL 1,000 mL, IntraVENous, 125 mL/Hr PRN: (17) #NaCl 0.9% *FLUSH* inj 3 mL 5 [...] Topical, Daily phenol 1.4% throat spray 5 [place], Oral, Q2H scopolamine 1.5 mg/72 hr patch 1 Patch, TransDermal, Q3Days traZODone 50 mg tab 50 mg 1 Tab, Oral, At Bedtime Problem list: Active Problems (9) Arthritis At risk for sleep apnea Back pain GERD (gastroesophageal reflux disease) High cholesterol History of obstructive sleep apnea HTN (hypertension) MRSA infection Stress incontinence Physical Examination VS/Measurements Vital Measurements 01/31/2019 18:49 EDT Systolic Blood Pressure 111 mmHg Diastolic Blood Pressure 53 mmHg LOW Mean Arterial Pressure (MAP)-BMDI 68 Temperature Source Oral Temperature Mode Fahrenheit Temperature, Fahrenheit 98.2 Deg F Clinical Temperature, C 36.8 Deg C Heart Rate Monitored 74 bpm Respiratory Rate 18 Breaths/Min Oxygen Saturation 96 % Oxygen Therapy Mode Room air General: [...] Lymphatics: No lymphadenopathy neck, axilla, groin. Musculoskeletal: Normal strength, No swelling, Right lower extremity cast. Integumentary: Warm, Intact, No rash. Neurologic: Alert, Oriented, No focal deficits. Psychiatric: Cooperative, Appropriate mood & affect. Review / Management Results review: All Results 01/31/2019 4:31 EDT Sodium Level 139 mmol/L Potassium Level 4.1 mmol/L Chloride Level 106 mmol/L Carbon Dioxide Level 22 mmol/L Anion Gap 15 Glucose Level 118 mg/dL HI Blood Urea Nitrogen 24 mg/dL HI Creatinine Level 1.33 mg/dL HI eGFR 49 mL/min/1.73m2 LOW eGFR NonAfrican 40 mL/min/1.73m2 LOW Bun/Creatinine 18.0 Calcium Level 8.7 mg/dL Hgb 8.4 Gram/dL LOW Hct 26.9 % LOW . Condition: Stable. Impression and Plan Diagnosis Prosthetic knee infection [...] Obesity (BMI 30.0-34.9) - Admitting, Medical. Course: Plan/ cont. current care, pt/ot, encourage oral fluid intake, nutritional support, encourage use of respirometer, motoring blood pressure, renal function, blood glucose, and urine output. -Pain control -DVT prophylaxis -Close monitoring fluid and electrolytes -When necessary nebs -For risk precautions -Sleep apnea precautions -Stress ulcer prophylaxis. Orders Order Profile (Selected) Inpatient Orders Ordered (Scheduled) CBC w/ Auto Diff: Specimen Type: Blood, AM Draw collect, 02/01/19 4:00:00 EDT, 1-Time, Stop: 02/01/19 4:00:00 EDT, Lab Collect CMP Comprehensive Metabolic Panel: Specimen Type: Blood, AM Draw collect, 02/01/19 4:00:00 EDT, 1-Time, Stop: 02/01/19 4:00:00 EDT, Lab Collect. documented in this encounter Plan of Treatment Not on file documented as of this encounter Visit Diagnoses Not on filedocumented in this encounter Care Teams Ride Attendant Relationship Specialty Start Date End Date Juan José Kendall MD [address] [facility] [address] [place] [address] PCP - General Family Medicine 12/25/22 Juan José Kendall MD [address] [facility] [address] [place] [address] Referring Physician Family Medicine 12/25/22 documented as of this encounter
--- OUTSIDE RECORDS SUMMARY | 2024-03-11 09:14 | XMS_ITS | Encounter Summary ---
Author Organization [employer] Address [address] [facility] [place] [address] Care Team Providers Care Welder Tech Name Role Phone Juan José Kendall MD Primary Care Provider +- [phone] Juan José Kendall MD Unavailable [phone] Encounter Details Date Type Department Care Team (Late st Contact Info) Description 01/31/2019 Transcribed Document [facility] [place] [address] [place] [address] ProviderLaurie MD [address] [place] [address] Social History Tobacco Use Types Packs/Day Years Used Date Smoking Tobacco: Never Assessed Comments Unknown Sex and Gender Information Value Date Recorded Sex Assigned at Not on file Legal Sex Female 2:23 PM CDT Gender Identity Not on file Sexual Orientation Not on file documented as of this encounter Miscellaneous Notes * Cerner Conversion Note - Historical ProviderMD - 01/31/2019 2:00 PM CDT Pain Assessment Entered On: 01/31/2019 16:45 EDT Performed On: 01/31/2019 14:07 EDT by Daniela Thomas RN Intervention Information: acetaminophen Performed by Daniela Thomas RN on 01/31/2019 13:07:00 EDT acetaminophen,500mg Oral Pain Assessment Pain Assessment : Follow-up assessment Pain Scale Goal : 4 Pain Scale Used : 0-10 Scale Daniela Thomas RN - 01/31/2019 16:45 EDT Pain Scale Intensity : 3 Daniela Thomas RN - 01/31/2019 16:45 EDT Image 4 - Images currently included in the form version of this document have not been included in the text rendition version of the form. documented in this encounter Plan of Treatment Not on file documented as of this encounter Visit Diagnoses Not on filedocumented in this encounter Care Teams Welder Tech Relationship Specialty Start Date End Date Juan José Kendall MD [address] [facility] [address] [place] [address] PCP - General Family Medicine 12/25/22 Juan José Kendall MD [address] [facility] [address] [place] [address] Referring Physician Family Medicine 12/25/22 documented as of this encounter
--- OUTSIDE RECORDS SUMMARY | 2024-03-11 09:14 | XMS_ITS | Encounter Summary ---
Author Organization [employer] Address [address] [address] Care Team Providers Care Elastic Attacher Chainstitch Name Role Phone Juan José Kendall MD Primary Care Provider +- [phone] Juan José Kendall MD Unavailable [phone] Encounter Details Date Type Department Care Team (Late st Contact Info) Description 01/31/2019 Transcribed Document [facility] Family Medicine [address] [place] [address] ProviderLaurie MD [address] [place] [address] Social History Tobacco Use Types Packs/Day Years Used Date Smoking Tobacco: Never Assessed Comments Unknown Sex and Gender Information Value Date Recorded Sex Assigned at Not on file Legal Sex Female 2:23 PM CDT Gender Identity Not on file Sexual Orientation Not on file documented as of this encounter Miscellaneous Notes * Cerner Conversion Note - Laurie ProviderMD - 01/31/2019 10:28 AM CDT Treatment Intervention, OT Entered On: 02/01/2019 13:26 EDT Performed On: 02/01/2019 10:05 EDT by JOYA MUNGUIA OTR/Ivan General Information, OT Visit Type, OT : Treatment Note JOYA MUNGUIA OTR/Ivan - 02/01/2019 13:23 EDT Patient Orders : Order Date Order Ordering 01/30/2019 19:01 OT Evaluation and Treatment Ordered By: JONG SANTACRUZ MD-ORT 01/31/2019 10:28 Occupational Therapy Additional Tx Ordered By: Active Diagnoses : 01/30/2019 12:00 Encounter for [...] knee joint 01/30/2019 12:00 Pure hypercholesterolemia, unspecified Admission Date : 01/31/2019 09:58 JOYA MUNGUIA OTR/L - 02/01/2019 13:27 EDT Assisted by, OT : environmental services assistant (WINDSHIELD REPAIR TECHNICIAN) JOYA MUNGUIA OTR/L - 02/01/2019 13:23 EDT Personal Devices : Personal Devices Glasses Assistive Devices : Assistive Devices Brace JOYA MUNGUIA OTR/L - 02/01/2019 13:[address] : Fall prevention measures Isolation Maintained : Contact JOYA MUNGUIA OTR/L - 02/01/2019 13:23 EDT General Status Patient Received Status : Supine in bed, Other: IV; SCDS; visitor present Treatment Start Time : 02/01/2019 9:36 EDT Patient Left Status : Supine in bed, Family/Visitors at bedside, All needs met and within reach, Other: IV; CM notified of pt's performance and concerns for safe return to home. RN/PCT Informed Comment : nursing ok'ed tx; ID and verified. Treatment End Time : 02/01/2019 10:05 EDT Treatment Time : 29 Minute(s) Actual Treatment Time : 29 Minute(s) JOYA MUNGUIA OTR/L - 02/01/2019 13:23 EDT Self Care/Home Management, OT Toileting Device : Commode, bedside, Other: RW + gait belt Toileting Comment : Pt used BSC with SBA; pt requried Total A with standing pericare. Cues for safety/posture/hand placement. Toilet Transfer Device : Belt, gait, Commode, bedside, Walker, rolling Toilet Transfer Comment : Mod A x2 w/sit > stand from BSC (set on tallest setting) and Min A x2 with stand > sit to BSC. BSC had to be pulled up behind pt due to difficulty completing SPT & squaring up w/BSC. Cues for safety/hand placement/sequencing/positioning. JOYA MUNGUIA OTR/L - 02/01/2019 13:27 EDT Functional Mobility Mobility Grid Supine to Sit : Rehab Minimal assistance (Comment: x1 w/HOB elevated + use of leg finance insurance manager; cues for sequencing/hand placement [JOYA MUNGUIA OTR/Ivan - 02/01/2019 13:27 EDT] ) Sit to Stand : Rehab Minimal assistance (Comment: x2 from EOB w/bed elevated significantly; cues for hand placement [JOYA MUNGUIA OTR/Ivan - 02/01/2019 13:27 EDT] ) Bed to Chair : Rehab Minimal assistance (Comment: x2 w/RW [JOYA MUNGUIA OTR/L - 02/01/2019 13:27 EDT] ) Chair to Bed : Rehab Minimal assistance (Comment: x2 w/RW [JOYA MUNGUIA OTR/Ivan - 02/01/2019 13:27 EDT] ) Stand to Sit : Rehab Minimal assistance (Comment: x2 to EOB with cues for hand placement/safety; pt reported weakness/fatigue/inability to step back to EOB; OT unlocked bed & pulled bed up behind pt to ensure safety [JOYA MUNGUIA OTR/L - 02/01/2019 13:27 EDT] ) Sit to Supine : Rehab Maximal assistance (Comment: x2 [JOYA MUNGUIA OTR/L - 02/01/2019 13:27 EDT] ) JOYA MUNGUIA OTR/L - 02/01/2019 13:27 EDT Functional MobilityComment : Pt demonstrated x2 SPTs from EOB <> BSC with RW, gait belt, unsteadiness, and Max cues for sequencing/safety/RW-use/PLB. See PT documentation for further details regarding mobility performance. Pt and spouse not receptive to idea of rehab before home -- despite therapist expressed concerns for safety. JOYA MUNGUIA OTR/Ivan - 02/01/2019 13:27 EDT Activity Tolerance, OT Activity Comment : Poor to fair tolerance; pt limited by weakness, lack of B knee flexion, impaired standing balance, and reported pain. JOYA MUNGUIA OTR/Ivan - 02/01/2019 13:27 EDT Education OT Occupational Therapy Education Grid Activity of Daily Living Training : Verbalizes understanding, Returns demonstration, Needs further teaching Functional Mobility Training : Verbalizes understanding, Returns demonstration, Needs further teaching Role of Occupational Therapy : Verbalizes understanding Occupational Therapy, Other : Verbalizes understanding, Returns demonstration, Needs further teaching (Comment: PLB as energy conservation and pain management technique during activity [JOYA MUNGUIA OTR/Ivan - 02/01/2019 13:27 EDT] ) JOYA MUNGUIA OTR/Ivan - 02/01/2019 13:27 EDT Plan of Care, OT OT Tx Plan/Goals Established w Patient : Yes Plan of Care Comment, OT : Continue with OT POC. JOYA MUNGUIA OTR/Ivan - 02/01/2019 13:27 EDT Physician Gynecologist Goals, OT Other LTG Grid Goal #1 Goal #2 Goal : Pt will complete ADL transfers with min assist x 1, RW level. Pt will complete a LB self care task with min assist, AE prn. Date to Meet : 02/06/2019 EST 02/06/2019 EST Goal Status : Initial goal Initial goal Comment : Mod A x2 w/BSC transfer on 02/01/19 Total A with pericare on 02/01/19 JOYA MUNGUAI OTR/Ivan - 02/01/2019 13:27 EDT JOYA MUNGUIA OTR/Ivan - 02/01/2019 13:27 EDT Treatment Note Subjective Comment : Pt ok'ed tx. Patient's Response to Treatment : Poor to fair response; pt limited by weakness, rapid fatigue, lack of B knee flexion, impaired standing balance, and reported pain. Pt cooperative. Additional Objective Information : SELF-CARE Assessment : No progress on OT goals. This OT recommends continued rehab therapy services in next level of care before return to home, as pt is requiring assist x2 for ensured safety and with observed unsteadiness/weakenss/rapid fatigue with functional transfers at this time. Plan for Treatment : Continue with OT POC. JOYA MUNGUIA OTR/Ivan - 02/01/2019 13:27 EDT Pain Assessment Pain Scaled Used : 0-10 Pain scale Pain Score Pre-Intervention : 4 Pain Comment : Pt reported knee pain; RN aware. JOYA MUNGUIA, OTR/L - 02/01/2019 13:27 EDT Image 1 - Images currently included in the form version of this document have not been included in the text rendition version of the form. Anticipated Discharge Needs, OT/PT Anticipated Discharge to : Other: TBD Recommend Continued Therapy at Discharge : Yes MUNGUIAANDREAJOYA, OTR/L - 02/01/2019 13:27 EDT [place] OT Charges OT Selfcare/Hm Mgmt Ea 15 Min : 2 JOYA MUNGUIA OTR/L - 02/01/2019 13:27 EDT Electronically signed by [facility] Conversion Asset Protection Specialist Cerner at 07/24/2022 3:54 PM CDT documented in this encounter Plan of Treatment Not on file documented as of this encounter Visit Diagnoses Not on filedocumented in this encounter Care Teams Elastic Attacher Chainstitch Relationship Specialty Start Date End Date Juan José Kendall MD [address] [facility] [address] [place] [address] PCP - General Family Medicine 12/25/22 Juan José Kendall MD [address] [facility] [address] [place] [address] Referring Physician Family Medicine 12/25/22 documented as of this encounter
--- OUTSIDE RECORDS SUMMARY | 2024-03-11 09:14 | XMS_ITS | Encounter Summary ---
Author Organization [employer] Address [address] [place] [address] Care Team Providers Care Ict Systems Test Engineer Name Role Phone Juan José Kendall MD Primary Care Provider + [phone] Juan José Kendall MD Unavailable [phone] Encounter Details Date Type Department Care Team (Late st Contact Info) Description 01/30/2019 Transcribed Document [facility] [place] Family Medicine [facility] [place] [address] ProviderLaurie MD [address] [place] [address] Social History Tobacco Use Types Packs/Day Years Used Date Smoking Tobacco: Never Assessed Comments Unknown Sex and Gender Information Value Date Recorded Sex Assigned at Not on file Legal Sex Female 2:23 PM CDT Gender Identity Not on file Sexual Orientation Not on file documented as of this encounter Miscellaneous Notes * Cerner Conversion Note - Historical ProviderMD - 01/30/2019 11:20 PM CDT Event Note Entered On: 01/30/2019 23:21 EDT Performed On: 01/30/2019 23:20 EDT by Dayday Crump RN Event Note Event Date/Time : 01/30/2019 20:00 EDT Event Location : Assigned room Event Details : Nursing assessment additional narrative Description of Event : Patient was brought to floor without KI. Orders say for it not to be removed. KI positioned on patient. Dayday Crump RN - 01/30/2019 23:20 EDT documented in this encounter Plan of Treatment Not on file documented as of this encounter Visit Diagnoses Not on filedocumented in this encounter Care Teams Ict Systems Test Engineer Relationship Specialty Start Date End Date Juan José Kendall MD [address] [facility] [address] [place] [address] PCP - General Family Medicine 12/25/22 Juan José Kendall MD [facility] [address] [place] [address] Referring Physician Family Medicine 12/25/22 documented as of this encounter
--- OUTSIDE RECORDS SUMMARY | 2024-03-11 09:14 | XMS_ITS | Encounter Summary ---
Author Organization [employer] Address [address] [place] [address] Care Team Providers Care Steamfitter Apprentice Name Role Phone Juan José Kendall MD Primary Care Provider + [phone] Juan José Kendall MD Unavailable [phone] Encounter Details Date Type Department Care Team (Late st Contact Info) Description 01/30/2019 Transcribed Document [facility] [place] [address] Laurie Garcia MD [address] [place] [address] Social History Tobacco Use Types Packs/Day Years Used Date Smoking Tobacco: Never Assessed Comments Unknown Sex and Gender Information Value Date Recorded Sex Assigned at Not on file Legal Sex Female 2:23 PM CDT Gender Identity Not on file Sexual Orientation Not on file documented as of this encounter Miscellaneous Notes * Cerner Conversion Note - Historical ProviderMD - 01/30/2019 6:09 PM CDT DATE OF PROCEDURE: 01/30/2019 SURGEON: Shay Guerrero MD PREOPERATIVE DIAGNOSIS: Recurrent patellar tendon rupture, right knee, 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 PROCEDURE: Complex patellar tendon reconstruction using Marlex polypropylene mesh graft and repair of innate tissue. LEAD TANK MECHANIC: José Luis Cloud. DESCRIPTION OF PROCEDURE: Patient was taken to the operating room, and after satisfactory general anesthesia, was transferred to the operating table. Her right leg was thoroughly scrubbed with Hibiclens, then cleansed with Betadine, and then DICTATION ENDS HERE /[id number] MD BANDAR Alcantar/STANISLAW / BANDAR / MODL /[id number] Electronically signed by Interface, [facility] Conversion Compliance Investigator Cerner at 07/24/2022 3:55 PM CDT documented in this encounter Plan of Treatment Not on file documented as of this encounter Visit Diagnoses Not on filedocumented in this encounter Care Teams Steamfitter Apprentice Relationship Specialty Start Date End Date Juan José Kendall MD [address] [facility] [address] [place] [address] PCP - General Family Medicine 12/25/22 Juan José Kendall MD [address] [facility] [address] [place] [address] Referring Physician Family Medicine 12/25/22 documented as of this encounter
--- OUTSIDE RECORDS SUMMARY | 2024-03-11 09:14 | XMS_ITS | Encounter Summary ---
Author Organization [employer] Address [address] [place] [address] Care Team Providers Care Scout Executive Name Role Phone Juan José Kendall MD Primary Care Provider + [phone] Juan José Kendall MD Unavailable [phone] Encounter Details Date Type Department Care Team (Late st Contact Info) Description 02/01/2019 Transcribed Document [facility] [place] [address] [place] [address] ProviderLaurie MD [address] [place] [address] Social History Tobacco Use Types Packs/Day Years Used Date Smoking Tobacco: Never Assessed Comments Unknown Sex and Gender Information Value Date Recorded Sex Assigned at Not on file Legal Sex Female 2:23 PM CDT Gender Identity Not on file Sexual Orientation Not on file documented as of this encounter Miscellaneous Notes * Cerner Conversion Note - Historical ProviderMD - 02/01/2019 5:00 AM CDT Chart Check - Review Order Profile Entered On: 02/01/2019 7:01 EDT Performed On: 02/01/2019 5:00 EDT by Dayday Crump RN Chart Check Powerplans Initiated/Discontinued as Appropriate : Yes All Active Orders Reviewed : Yes Dayday Crump RN - 02/01/2019 7:01 EDT documented in this encounter Plan of Treatment Not on file documented as of this encounter Visit Diagnoses Not on filedocumented in this encounter Care Teams Scout Executive Relationship Specialty Start Date End Date Juan José Kendall MD [address] [place] [address] PCP - General Family Medicine 12/25/22 Juan José Kendall MD [address] [place] [address] Referring Physician Family Medicine 12/25/22 documented as of this encounter
--- OUTSIDE RECORDS SUMMARY | 2024-03-11 09:14 | XMS_ITS | Encounter Summary ---
Author Organization [employer] Address [address] [facility] [place] [address] Care Team Providers Care Campaign Developer Name Role Phone Juan José Kendall MD Primary Care Provider +- [phone] Juan José Kendall MD Unavailable [phone] Encounter Details Date Type Department Care Team (Late st Contact Info) Description 01/31/2019 Transcribed Document [facility] [place] Family Medicine [address] [place] [address] ProviderLaurie MD [address] [place] [address] Social History Tobacco Use Types Packs/Day Years Used Date Smoking Tobacco: Never Assessed Comments Unknown Sex and Gender Information Value Date Recorded Sex Assigned at Not on file Legal Sex Female 2:23 PM CDT Gender Identity Not on file Sexual Orientation Not on file documented as of this encounter Miscellaneous Notes * Cerner Conversion Note - Laurie ProviderMD - 01/31/2019 8:00 AM CDT Pain Assessment Entered On: 01/31/2019 11:32 EDT Performed On: 01/31/2019 9:32 EDT by Daniela Thomas RN Intervention Information: acetaminophen Performed by Daniela Thomas RN on 01/31/2019 08:32:00 EDT acetaminophen,500mg Oral Pain Assessment Pain Assessment [...] on filedocumented in this encounter Care Teams Campaign Developer Relationship Specialty Start Date End Date Juan José Kendall MD [address] [facility] [address] [place] [address] PCP - General Family Medicine 12/25/22 Juan José Kendall MD [address] [facility] [address] [place] [address] Referring Physician Family Medicine 12/25/22 documented as of this encounter
--- OUTSIDE RECORDS SUMMARY | 2024-03-11 09:14 | XMS_ITS | Encounter Summary ---
Author Organization [employer] Address [address] [place] [address] Care Team Providers Care Facing Machine Operator Name Role Phone Juan José Kendall MD Primary Care Provider +- [phone] Juan José Kendall MD Unavailable [phone] Encounter Details Date Type Department Care Team (Late st Contact Info) Description 01/30/2019 Transcribed Document [facility] Family Medicine [address] [place] [address] ProviderLaurie MD [address] [place] [address] Social History Tobacco Use Types [...] Laurie ProviderMD - 01/30/2019 2:37 PM CDT [facility] Main OR PACU Summary Primary Physician: JONG SANTACRUZ MD-ORT Finalized Date/Time: 01/30/19 18:33:25 Pt. Name: TRUDI BLAIR/Sex: 1955 Female Med Rec #: [id number] Physician: JONG SANTACRUZ MD-ORT Financial #: [id number] Pt. Type: O Room/Bed: Admit/Disch: 01/30/19 11:31:00 - Institution: [facility] Main OR PACU Case Times Entry 1 In PACU I 01/30/19 18:00:00 Ready for PACU 01/30/19 18:35:00 Discharge Discharge from PACU 01/30/19 18:35:00 I Last Modified By: Manju Gloria RN 01/30/19 18:33:18 Finalized By: Manju Gloria, RN Document Signatures Signed By: Manju Gloria RN 01/30/19 18:33 Electronically signed by Aleks [facility] Conversion Senior Technologist Cerner at 07/24/2022 3:54 PM CDT documented in this encounter Plan of Treatment Not on file documented as of this encounter Visit Diagnoses Not on filedocumented in this encounter Care Teams Facing Machine Operator Relationship Specialty Start Date End Date Juan José Kendall MD [address] [facility] [address] [facility] [address] PCP - General Family Medicine 12/25/22 Juan José Kendall MD [address] [facility] [address] [place] [address] Referring Physician Family Medicine 12/25/22 documented as of this encounter
--- OUTSIDE RECORDS SUMMARY | 2024-03-11 09:14 | XMS_ITS | Encounter Summary ---
Author Organization [employer] Address [address] [place] [address] Care Team Providers Care Public Area Supervisor Name Role Phone Juan José Kendall MD Primary Care Provider +- [phone] Juan José Kendall MD Unavailable [phone] Encounter Details Date Type Department Care Team (Late st Contact Info) Description 01/30/2019 Transcribed Document [facility] [place] Family Medicine [address] [place] [address] ProviderLaurie MD [address] [place] [address] Social History Tobacco Use Types Packs/Day Years Used Date Smoking Tobacco: Never Assessed Comments Unknown Sex and Gender Information Value Date Recorded Sex Assigned at Not on file Legal Sex Female 2:23 PM CDT Gender Identity Not on file Sexual Orientation Not on file documented as of this encounter Miscellaneous Notes * Cerner Conversion Note - Historical ProviderMD - 01/30/2019 7:01 PM CDT Evaluation, Occupational Therapy Entered On: 01/31/2019 10:09 EDT Performed On: 01/31/2019 9:15 EDT by VALENTINA RETANA, OTR/L General Information, OT Visit Type, OT : Initial evaluation VALENTINA RETANA OTR/L - 01/31/2019 10:08 EDT Patient Orders : Order Date Order Ordering 01/30/2019 19:01 OT Evaluation and Treatment Ordered By: JONG SANTACRUZ MD-ORT Active Diagnoses [...] knee joint 01/30/2019 12:00 Pure hypercholesterolemia, unspecified VALENTINA RETANA OTR/L - 01/31/2019 10:27 EDT Therapy Diagnosis, OT : reduced mobility VALENTINA RETANA OTR/L - 01/31/2019 10:08 EDT Admission Date : 01/31/2019 09:58 VALENTINA RETANA OTR/L - 01/31/2019 10:27 EDT Assisted by, OT : Physical Therapist VALENTINA RETANA OTR/Ivan - 01/31/2019 10:08 EDT Personal Devices : Personal Devices Glasses Assistive Devices : Assistive Devices Brace VALENTINA RETANA OTR/L - 01/31/2019 10:[address] : Fall prevention measures Isolation Maintained : Contact VALENTINA RETANA OTR/Ivan - 01/31/2019 10:08 EDT General Status Patient Received Status : Long sitting in bed, Bed alarm activated, HOB elevated Treatment Start Time : 01/31/2019 9:15 EDT Patient Left Status : Up in chair, Chair alarm activated, RN/PCT informed, Family/Visitors at bedside, Communication board completed, All needs met and within reach RN/PCT Informed Comment : nursing ok'd tx. id and verified. Treatment End Time : 01/31/2019 9:35 EDT Treatment Time : 20 Minute(s) VALENTINA RETANA OTR/Ivan - 01/31/2019 10:08 EDT History and Environment, OT Home Equipment, Therapy : ADL Equipment, Belt, gait, Board, slide, Commode, Lift, chair, Shower Equipment, Walker, Wheelchair ADL Equipment : Aid, sock, Biophysics Professor, Sponge, long handled Commode : Commode, bedside Shower Equipment : Shower Chair, with back Walker : Walker, front wheel Wheelchair : Wheelchair, standard Home Setup : One story Stairs : No VALENTINA RETANA OTR/Ivan 01/31/2019 10:14 EDT Prior LOF Bathing, OT : Assist needed Prior LOF Bed Mobility : Independent Prior LOF Upper Body Dressing, OT : Independent Prior LOF Lower Body Dressing, OT : Independent (Comment: mod I with LB AE [VALENTINA RETANA OTR/Ivan 01/31/2019 10:14 EDT] ) Prior LOF Toileting : Independent (Comment: mod I, slide board [VALENTINA RETANA OTR/Ivan 01/31/2019 10:14 EDT] ) Prior LOF Transfer : Independent (Comment: mod I with slide board [VALENTINA RETANA OTR/Ivan 01/31/2019 10:14 EDT] ) Prior LOF Grooming, OT : Independent Prior LOF Wheel Chair Mobility : Independent Prior LOF for IADLs, OT : Assist needed VALENTINA RETANA OTR/Ivan 01/31/2019 10:14 EDT Living Situation, Therapy : Home Patient Lives With : Spouse Persons Providing Information : Patient VALENTINA RETANA OTR/Ivan 01/31/2019 10:08 EDT Upper Extremity Upper Extremity Dominance : Right Right UE Active ROM : WFL Right UE Strength : WFL Left UE Active ROM : WFL Left UE Strength : WFL Upper Extremity Strength Impaired : No Right UE Strength : WFL Left UE Strength : WFL Fine Motor Coordination Impaired : No VALENTINA RETANA OTR/Ivan 01/31/2019 10:14 EDT Self Care/Home Management, OT Self Feeding Assist Level, OT : Independent, complete Grooming Assist Level, OT : Independent, complete Bathing Assist Level, OT : Supervision or set-up Upper Body Dressing Assist Level, OT : Independent, complete Lower Body Dressing Assist Level, OT : Assist, moderate Lower Body Dressing Comment, OT : due to cast and KI. Pt typically uses LB AE. Toileting Assist Level : Assist, minimal Toileting Device : Commode, bedside VALENTINA RETANA OTR/Ivan 01/31/2019 10:14 EDT Toileting Assist Device Comment : min/mod x 2 VALENTINA RETANA OTR/Ivan - 01/31/2019 10:27 EDT Toilet Transfer Assist Level : Assist, minimal Toilet Transfer Device : Belt, gait, Commode, bedside, Walker, rolling Toilet Transfer Comment : x 2 VALENTINA RETANA OTR/L - 01/31/2019 10:14 EDT Mobility Device/Prosthesis/Wt Bearing Weight Bearing Status Maintained : Yes Weight Bearing Status : As tolerated Functional Mobility Device : Gait belt, Walker, front wheel Functional Mobility with Brace/Splint : Yes VALENTINA RETANA OTR/Ivan - 01/31/2019 10:14 EDT Functional Mobility Mobility Grid Supine to Sit : Rehab Minimal assistance (Comment: with offloading weight of cast [VALENTINA RETANA OTR/Ivan - 01/31/2019 10:14 EDT] ) Sit to Stand : Rehab Minimal assistance (Comment: x 2 from elevated surface [VALENTINA RETANA OTR/Ivan 01/31/2019 10:14 EDT] ) Bed to Chair : Rehab Minimal assistance Stand to Sit : Rehab Minimal assistance (Comment: x 2 [VALENTINA RETANA OTR/Ivan - 01/31/2019 10:14 EDT] ) VALENTINA RETANA OTR/Ivan - 01/31/2019 10:14 EDT AM PAC Daily Activity Putting On/Taking Off Lower Body Clothes : A lot Bathing (Washing, Rinsing, Drying) : A little Toileting Includes Toilet, Bedpan, Urinal : A little Putting On/Taking Off Upper Clothing : None Taking Care of Grooming : None Eating Meals : None AM-PAC Daily Activity Raw Score : 20 VALENTINA RETANA OTR/Ivan - 01/31/2019 10:14 EDT Image 3 - Images currently included in the form version of this document have not been included in the text rendition version of the form. Activity Tolerance, OT Activity Comment : GOOD VALENTINA RETANA OTR/L - 01/31/2019 10:14 EDT Cognition Assessment, OT Orientation : Oriented x 4 VALENTINA RETANA OTR/Ivan - 01/31/2019 10:14 EDT Education OT Occupational Therapy Education Grid Activity of Daily Living Training : Verbalizes understanding, Returns demonstration, Needs further teaching Functional Mobility Training : Verbalizes understanding, Returns demonstration, Needs further teaching Role of Occupational Therapy : Verbalizes understanding VALENTINA RETANA OTR/Ivan - 01/31/2019 10:14 EDT Indication Assessment, OT Occupational Therapy Indicated : Yes Problem List, OT : Impaired, bed mobility, Impaired, activities daily living, Impaired functional mobility, Impaired, standing balance, Impaired, transfers Potential Barriers, OT : None evident Rehabilitation Potential, OT : Good VALENTINA RETANA OTR/Ivan - 01/31/2019 10:14 EDT Plan of Care, OT OT Tx Plan/Goals Established w Patient : Yes OT Frequency Rehab : Other: 3-5 x week OT Duration Rehab : Seven Days OT Treatments Planned : Activities of daily living, Functional mobility training, Safety education, Therapeutic activities, Therapeutic exercises Plan of Care Comment, OT : see OT POC VALENTINA RETANA OTR/Ivan - 01/31/2019 10:14 EDT Retirement Goals, OT Other LTG Grid Goal #1 Goal #2 Goal : Pt will complete ADL transfers with min assist x 1, RW level. Pt will complete a LB self care task with min assist, AE prn. Date to Meet : 02/06/2019 EST 02/06/2019 EST Goal Status : Initial goal Initial goal VALENTINA RETANA OTR/Ivan - 01/31/2019 10:14 EDT VALENTINA RETANA OTR/Ivan - 01/31/2019 10:14 EDT Treatment Note Subjective Comment : pt ok'd tx. Additional Objective Information : EVAL = 8 min ADL = 12 min Pt educated on ADL transfers at RW level. Assessment : Pt is min assist x 2 for ADL transfers and mod x 2 for LB self care tasks. Pt to benefit from skilled during in-patient stay. Plan for Treatment : Pt to be seen by skilled OT 3-5 x week. VALENTINA RETANA OTR/Ivan - 01/31/2019 10:14 EDT Pain Assessment Pain Scaled Used : 0-10 Pain scale Pain Score Pre-Intervention : 5 Pain Score During-Intervention : 5 Pain Score Post-Intervention. : 5 Location : Knees, bilateral Pain Comment : nurse aware VALENTINA RETANA OTR/Ivan - 01/31/2019 10:14 EDT Image 1 - Images currently included in the form version of this document have not been included in the text rendition version of the form. Anticipated Discharge Needs, OT/PT Anticipated Discharge to : Other: to be determined. Recommend Continued Therapy at Discharge : Yes VALENTINA RETANA OTR/L - 01/31/2019 10:14 EDT [place] OT Charges OT Selfcare/Hm Mgmt Ea 15 Min : 1 OT Eval Low Complexity : 1 VALENTINA RETANA OTR/L - 01/31/2019 10:14 EDT Electronically signed by [facility], [facility] Conversion Mass Spectrometry Manager Cerner at 07/24/2022 3:34 PM CDT documented in this encounter Plan of Treatment Not on file documented as of this encounter Visit Diagnoses Not on filedocumented in this encounter Care Teams Public Area Supervisor Relationship Specialty Start Date End Date Juan José Kendall MD [address] [facility] [address] [place] [address] PCP - General Family Medicine 12/25/22 Juan José Kendall MD [address] [facility] [address] [place] [address] Referring Physician Family Medicine 12/25/22 documented as of this encounter
--- OUTSIDE RECORDS SUMMARY | 2024-03-11 09:14 | XMS_ITS | Encounter Summary ---
Author Organization [employer] Address [address] [place] [address] Care Team Providers Care Library Acquisitions Technician Name Role Phone Juan José Kendall MD Primary Care Provider +- [phone] Juan José Kendall MD Unavailable [phone] Encounter Details Date Type Department Care Team (Late st Contact Info) Description 02/01/2019 Transcribed Document [facility] [place] Family Medicine [facility] [place] [address] Laurie Garcia MD [address] [place] [id number] Social History Tobacco Use Types Packs/Day Years Used Date Smoking Tobacco: Never Assessed Comments Unknown Sex and Gender Information Value Date Recorded Sex Assigned at Not on file Legal Sex Female 2:23 PM CDT Gender Identity Not on file Sexual Orientation Not on file documented as of this encounter Miscellaneous Notes * Cerner Conversion Note - Laurie Garcia MD - 02/01/2019 6:05 PM CDT Patient: TRUDI BLAIR Age: 63 years Sex: Female : 1955 Associated Diagnoses: Acute blood loss anemiaOn chronic, postoperative; 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 Has low H&H of 7.6 and 24.3 respectively and a transfusion of 2 units of packed RBCs in progress ???Limited mobility from bed to chair ???High fall risk ???Unsteadiness Review of Systems Constitutional: No fever, No chills. Eye: No discharge, No blurring, No double vision, No visual disturbances. Ear/Nose/Mouth/Throat: No nasal congestion, No sore throat. Respiratory: No shortness of breath, No cough. Cardiovascular: No chest pain, No palpitations. Gastrointestinal: No nausea, No vomiting. Genitourinary: No change in urine stream. Musculoskeletal: right lower extremity in a cast. Integumentary: Negative. [...] mg tab 4 mg 2 Tab, Oral, Q4H magnesium hydroxide 8% liq 30 mL 15 mL, Oral, Q6H metaxalone 800 mg tab 800 mg 1 Tab, Oral, TID ondansetron 4 mg tab 4 mg 1 Tab, Oral, Q6H ondansetron 4 mg/2 mL inj 4 mg 2 mL, IV Push, Q4H petrolatum 100% oint 28 g 1 Application, Topical, Daily phenol 1.4% throat spray 5 [place], Oral, Q2H scopolamine 1.5 mg/72 hr patch 1 Patch, TransDermal, Q3Days tapentadol 50 mg tab 100 mg 2 Tab, Oral, Q4H traZODone 50 mg tab 50 mg 1 Tab, Oral, At Bedtime Problem list: Active Problems (9) Arthritis At risk for sleep apnea Back pain GERD (gastroesophageal reflux disease) High cholesterol History of obstructive sleep apnea HTN (hypertension) MRSA infection Stress incontinence Physical Examination VS/Measurements Vital Measurements 02/01/2019 18:02 EDT Systolic Blood Pressure 127 mmHg Diastolic Blood Pressure 57 mmHg LOW Mean Arterial Pressure (MAP)-BMDI 74 Temperature Source Oral Temperature Mode Fahrenheit Temperature, Fahrenheit 99.7 Deg F Clinical Temperature, C 37.6 Deg C Heart Rate Monitored 82 bpm Respiratory Rate 16 Breaths/Min Oxygen Saturation 95 % Oxygen Therapy [...] neck, axilla, groin. Musculoskeletal: Normal strength, No swelling. Integumentary: Warm, Intact, No rash. Neurologic: Alert, Oriented, No focal deficits. Psychiatric: Cooperative, Appropriate mood & affect. Review / Management Results review: All Results 02/01/2019 4:18 EDT Sodium Level 139 mmol/L [...] % LOW Lymph # 1.10 K/uL LOW Otero % 14.4 % HI Otero # 1.20 K/uL HI Eos % 1.0 % Eos # 0.08 K/uL Baso % 0.7 % Baso # 0.06 K/uL Slide Review No IG# 0 x10(3)/uL IG% 0 % 01/31/2019 4:31 EDT Sodium Level 139 mmol/L [...] . Condition: Stable. Impression and Plan Diagnosis Acute blood loss anemiaOn chronic, postoperative - Working, Medical. Prosthetic knee infection with a history [...] renal function, blood glucose, and urine output. and adjusting pain medication. DVT prophylaxis. Continue transfusion of 2 units packed RBCs. Fall risk precautions. Sleep apnea precautions. Stress ulcer prophylaxis.. Electronically signed by Blayne Fink Conversion Underground Distribution Engineer Cerner at 07/24/2022 3:41 PM CDT documented in this encounter Plan of Treatment Not on file documented as of this encounter Visit Diagnoses Not on filedocumented in this encounter Care Teams Library Acquisitions Technician Relationship Specialty Start Date End Date Juan José Kendall MD [address] [place] [facility] [address] [place] [address] PCP - General Family Medicine 12/25/22 Juan José Kendall MD [address] [place] [facility] [address] [place] [address] Referring Physician Family Medicine 12/25/22 documented as of this encounter
--- OUTSIDE RECORDS SUMMARY | 2024-03-11 09:14 | XMS_ITS | Encounter Summary ---
Author Organization [employer] Address [address] [facility] [place] [address] Care Team Providers Care Tree Sapper Name Role Phone Unavailable Primary Care Provider Unavailabl e Encounter Details Date Type Department Care Team (Late st Contact Info) Description 01/31/2019 Historic Encounter [address] [address] ProviderMatthew Historical Social History Tobacco [...] Associated Diagnosis Comments HEMOGLOBIN AND HEMATOCRIT Routine 01/31/2019 4:31 AM EDT documented in this encounter Results * (ABNORMAL) Hemoglobin and hematocrit (01/31/2019 4:31 AM EDT) Hgb 8.4(L) 11.2 - 15.7 Gram/dL 01/31/2019 9:08 AM EDT Comment: No Hemoglobin reference ranges [...] ??12 ??Years ??150 ??Years ??11.2 15.7 Hct 26.9(L) 34.1 - 44.9 % 01/31/2019 9:08 AM EDT Comment: No Hematocrit reference ranges [...] ??12 ??Years ??150 ??Years ??34.1 44.9 Blood 01/31/2019 4:31 AM EDT 01/31/2019 9:03 AM EDT Sle Historical Provider LAB BLOOD ORDERABLES Fi nal Result [facility] [address] [phone] documented in this encounter Visit Diagnoses Not on filedocumented in this encounter
--- OUTSIDE RECORDS SUMMARY | 2024-03-11 09:14 | XMS_ITS | Encounter Summary ---
Author Organization [employer] Address [address] [place] [address] Care Team Providers Care Practice Representative Name Role Phone Juan José Kendall MD Primary Care Provider +- [phone] Juan José Kendall MD Unavailable [phone] Encounter Details Date Type Department Care Team (Late st Contact Info) Description 10/06/2018 Transcribed Document [facility] [place] [facility] [place] [address] ProviderLaurie MD [address] [place] [id number] Social History Tobacco Use Types Packs/Day Years Used Date Smoking Tobacco: Never Assessed Comments Unknown Sex and Gender Information Value Date Recorded Sex Assigned at Not on file Legal Sex Female 2:23 PM CDT Gender Identity Not on file Sexual Orientation Not on file documented as of this encounter Miscellaneous Notes * Cerner Conversion Note - Laurie ProviderMD - 10/06/2018 2:58 PM CDT Nursing Discharge Summary Entered On: 10/06/2018 14:59 EDT Performed On: 10/06/2018 14:58 EDT by Lisa Haile RN Discharge Documentation Discharge Date/Time : 10/06/2018 12:55 EDT Patient Disposition, General : Transfer Discharge To : Rehabilitation unit/facility Mode Of Departure, General Discharge : Stretcher Accompanied By, Discharge : Spouse IV Discontinued : Yes Medications Given to Patient : No Personal Belongings With Patient : Yes Pt's Own Supply of Medications Returned : No Prescriptions Given to Patient : Other: prescription sent to facility Discharge Instructions Reviewed With, Opportunity For Questions Given : Patient Patient Education Completed : Yes Teaching Method : Explanation Teaching Evaluation : Verbalizes understanding Education Comment : 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 Nurse Report w/Opportunity for Questions : Called External Facility Requested Documentation : Yes Lisa Haile, RN - 10/06/2018 14:58 EDT Electronically signed by [facility] Conversion Inspector Final Assembly Mechanical Cerner at 07/24/2022 3:59 PM CDT documented in this encounter Plan of Treatment Not on file documented as of this encounter Visit Diagnoses Not on filedocumented in this encounter Care Teams Practice Representative Relationship Specialty Start Date End Date Juan José Kendall MD [address] [facility] [address] [place] [address] PCP - General Family Medicine 12/25/22 Juan José Kendall MD [address] [facility] [address] [place] [address] Referring Physician Family Medicine 12/25/22 documented as of this encounter
--- OUTSIDE RECORDS SUMMARY | 2024-03-11 09:14 | XMS_ITS | Encounter Summary ---
Author Organization [employer] Address [address] [place] [address] Care Team Providers Care Overweaver Name Role Phone Unavailable Primary Care Provider Unavailabl e Encounter Details Date Type Department Care Team (Late st Contact Info) Description 01/30/2019 Historic Encounter [address] [address] Provider, [facility] Historical Social History Tobacco Use Types Packs/Day [...] Name Priority Date/Time Associated Diagnosis Comments CULTURE, ACID FAST BACILLI(SENDOUT) Routine 01/30/2019 2:53 PM EDT documented in this encounter Results * Culture, Acid Fast Bacilli(SENDOUT) (01/30/2019 2:53 PM EDT) Final No Acid Fast Bacilli isolated at 6 weeks. Final Pre No growth to date AFS No Acid Fast Bacilli seen AFS STRUCTURE OF RIGHT KNEE REGION / Unknown 01/30/2019 2:53 PM EDT 01/30/2019 10:08 PM EDT [facility] Historical Provider MICROBIOLOGY - GENERAL ORDERABLES Final Result [facility] [address] [phone] documented in this encounter Visit Diagnoses Not on filedocumented in this encounter
--- OUTSIDE RECORDS SUMMARY | 2024-03-11 09:14 | XMS_ITS | Encounter Summary ---
Author Organization [employer] Address [address] [place] [address] Care Team Providers Care Youth Care Worker Name Role Phone Juan José Kendall MD Primary Care Provider +- [phone] Juan José Kendall MD Unavailable [phone] Encounter Details Date Type Department Care Team (Late st Contact Info) Description 01/31/2019 Transcribed Document [facility] [place] [address] [place] [address] ProviderLaurie MD [address] [place] [address] Social History Tobacco Use Types Packs/Day Years Used Date Smoking Tobacco: Never Assessed Comments Unknown Sex and Gender Information Value Date Recorded Sex Assigned at Not on file Legal Sex Female 2:23 PM CDT Gender Identity Not on file Sexual Orientation Not on file documented as of this encounter Miscellaneous Notes * Cerner Conversion Note - Laurie ProviderMD - 01/31/2019 8:00 PM CDT Pain Assessment Entered On: 02/01/2019 0:07 EDT Performed On: 01/31/2019 21:22 EDT by Dayday Crump RN Intervention Information: acetaminophen Performed by Dayday Crump RN on 01/31/2019 20:22:00 EDT acetaminophen,500mg Oral Pain Assessment Pain Assessment : Follow-up assessment Pain Scale Goal : 4 Pain Scale Used : 0-10 Scale Pain Intervention, Drug : Medicated Pain Improved by Intervention : Yes Pain Comment : sleeping Dayday Crump RN - 02/01/2019 0:07 EDT Pain Scale Intensity : Alternate pain scale used Dayday Crump RN - 02/01/2019 0:07 EDT Image 4 - Images currently included in the form version of this document have not been included in the text rendition version of the form. documented in this encounter Plan of Treatment Not on file documented as of this encounter Visit Diagnoses Not on filedocumented in this encounter Care Teams Youth Care Worker Relationship Specialty Start Date End Date Juan José Kendall MD [address] [facility] [address] [place] [address] PCP - General Family Medicine 12/25/22 Juan José Kendall MD [address] [facility] [address] [place] [address] Referring Physician Family Medicine 12/25/22 documented as of this encounter
--- OUTSIDE RECORDS SUMMARY | 2024-03-11 09:14 | XMS_ITS | Encounter Summary ---
Author Organization [employer] Address [address] [place] [address] Care Team Providers Care Project Coordinator Rn Name Role Phone Juan José Kendall MD Primary Care Provider + [phone] Juan José Kendall MD Unavailable [phone] Encounter Details Date Type Department Care Team (Late st Contact Info) Description 01/30/2019 Transcribed Document [facility] [place] Family Medicine [facility] [place] [address] Laurie Garcia MD [address] [place] [address] Social History Tobacco Use Types Packs/Day Years Used Date Smoking Tobacco: Never Assessed Comments Unknown Sex and Gender Information Value Date Recorded Sex Assigned at Not on file Legal Sex Female 2:23 PM CDT Gender Identity Not on file Sexual Orientation Not on file documented as of this encounter Miscellaneous Notes * Cerner Conversion Note - Historical ProviderMD - 01/30/2019 6:19 PM CDT DATE OF PROCEDURE: 01/30/2019 SURGEON: Shay Guerrero MD PREOPERATIVE DIAGNOSIS: 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 PROCEDURE: Patellar tendon reconstruction with polypropylene mesh graft along with innate tissue repair. PULLMAN CAR REPAIRER: José Luis Cloud. DESCRIPTION OF PROCEDURE: Patient was taken to the operating room, and after satisfactory general anesthesia, she was transferred to the operating table in the usual supine position. Her right knee and leg were then scrubbed with Hibiclens and dried thoroughly. This was then rinsed with sterile saline and dried once more followed by treatment with alcohol. The normal DuraPrep was then utilized to prep the patient's lower leg, knee, and thigh. The leg was elevated and exsanguinated, and the tourniquet about the upper thigh was inflated to 350 mmHg. A longitudinal incision was made on the anterior aspect of the knee utilizing the previous scar as a guide. The incision was carefully carried down through the abundant subcutaneous tissue to the extensor apparatus. Dissection was created between the subcutaneous tissue and the extensor apparatus. A medial parapatellar incision was made, carrying this incision down the medial border of the patella and the ruptured patellar tendon to the tibial tubercle. The incision was also carried proximally in the area between the rectus femoris and the vastus medialis. The patient's patella was migrated proximally. The patella was grasped firmly with a towel clip and pulled distally, while a quadricepsplasty was done to allow the quadriceps to advance distally as much as possible. An osteotomy was created at the tibial tubercle, removing the section of bone approximately 1 x 2 cm. The underlying bone was then curetted, creating a cavity for the polypropylene mesh. The mesh was then rolled and folded into an 11 x 1 inch multilayered graft. This was then temporarily forced into the trough in the tibial tubercle to make sure that this could be tightly placed. This hole was then copiously irrigated with antibiotic solution and dried thoroughly. Cement was mixed and was pressurized into the hole. The polypropylene mesh was then advanced into the hole and further pushed in with a bone tamp. It was then covered with more bone cement, which was held in place until all the cement was hardened. This was further stabilized by drilling and inserting a 48 mm long, 4.0 fully-threaded screw with a washer. The patient's insufficient patellar tendon was cut in an H manner to allow it to be advanced pants over vest. The polypropylene mesh was brought up in the normal site for the patellar tendon and was advanced out the medial border of the upper end of the patellar tendon through the previously described hole. The mesh graft was then brought over the top of the patella and was advanced into the rectus femoris by pulling very, very tightly on the polypropylene to hold it as tight as possible and to simultaneously bring the rectus femoris and the vastus medialis distally. Multiple sutures of #2 and #5 MaxBraid were utilized to advance the polypropylene mesh proximally and the quadriceps distally to help restore the ability to extend the knee. The vastus medialis was then brought over the top of the graft and was sutured very carefully also with multiple interrupted sutures of #2 MaxBraid and #5 MaxBraid. The medial parapatellar incision down the medial border of the patella was therefore closed. There was 1 small area where the polypropylene was visible. This was closed with a small flap of fibrous and muscle tissue. The entire medial border was then closed with a running suture of #2 PDO Quill. The subcutaneous tissue was closed with multiple interrupted sutures of 0 and 2-0 Vicryl. Skin was closed with multiple interrupted nylon sutures using a fej-hllw-owoq-far repair followed by mihaela. The wound was then dressed sterilely and a very carefully padded cylinder cast was applied using dense foam to pad the ankle area. Careful molding of the cast was performed to help prevent any sliding. It was also padded at the top with multiple layers of cast padding. Patient was subsequently awakened and taken to the recovery room in satisfactory condition. /[id number] MD BANDAR Alcantar/AQ / BANDAR / MODL /[id number] documented in this encounter Plan of Treatment Not on file documented as of this encounter Visit Diagnoses Not on filedocumented in this encounter Care Teams Project Coordinator Rn Relationship Specialty Start Date End Date Juan José Kendall MD [address] [facility] [address] [place] [address] PCP - General Family Medicine 12/25/22 Juan José Kendall MD [address] [place] [address] Referring Physician Family Medicine 12/25/22 documented as of this encounter
--- OUTSIDE RECORDS SUMMARY | 2024-03-11 09:14 | XMS_ITS | Encounter Summary ---
Author Organization [facility] Init [employer] Address [address] [place] [address] Care Team Providers Care Wire Wheeler Name Role Phone Unavailable Primary Care Provider Unavailabl e Encounter Details Date Type Department Care Team (Late st Contact Info) Description 01/30/2019 Historic Encounter [facility] [address] [place] [address] Provider, [facility] Historical Social History Tobacco Use Types Packs/Day [...] Procedure Name Priority Date/Time Associated Diagnosis Comments ANAEROBIC CULTURE Routine 01/30/2019 2:5 3 PM EDT documented in this encounter Results * Anaerobic culture (01/30/2019 2:53 PM EDT) Final No Anaerobic growth Pre No Anaerobic growth Pre Culture in progress STRUCTURE OF RIGHT KNEE REGION / Unknown 01/30/2019 2:53 PM EDT 01/30/2019 10:08 PM EDT [facility] Historical Provider MICROBIOLOGY - GENERAL ORDERABLES Final Result [facility] [address] [place] [id number] [phone] documented in this encounter Visit Diagnoses Not on filedocumented in this encounter
--- OUTSIDE RECORDS SUMMARY | 2024-03-11 09:14 | XMS_ITS | Encounter Summary ---
Author Organization [employer] Address [address] [place] [address] Care Team Providers Care Spud Sorter Name Role Phone Juan José Kendall MD Primary Care Provider + [phone] Juan José Kendall MD Unavailable [phone] Encounter Details Date Type Department Care Team (Late st Contact Info) Description 01/31/2019 Transcribed Document [facility] [place] Family Medicine [address] [place] [address] ProviderLaurie MD [address] [place] [address] Social History Tobacco Use Types Packs/Day Years Used Date Smoking Tobacco: Never Assessed Comments Unknown Sex and Gender Information Value Date Recorded Sex Assigned at Not on file Legal Sex Female 2:23 PM CDT Gender Identity Not on file Sexual Orientation Not on file documented as of this encounter Miscellaneous Notes * Cerner Conversion Note - Historical ProviderMD - 01/31/2019 5:00 AM CDT Chart Check - Review Order Profile Entered On: 01/31/2019 4:52 EDT Performed On: 01/31/2019 5:00 EDT by Dayday Crump RN Chart Check Powerplans Initiated/Discontinued as Appropriate : Yes All Active Orders Reviewed : Yes Dayday Crump RN - 01/31/2019 4:52 EDT Electronically signed by Adia Fink Conversion Home Visitor [employer] Start Cerner at 07/24/2022 3:39 PM CDT documented in this encounter Plan of Treatment Not on file documented as of this encounter Visit Diagnoses Not on filedocumented in this encounter Care Teams Spud Sorter Relationship Specialty Start Date End Date Juan José Knedall MD [address] [place] [address] PCP - General Family Medicine 12/25/22 Juan José Kendall MD [address] [place] [address] Referring Physician Family Medicine 12/25/22 documented as of this encounter
--- OUTSIDE RECORDS SUMMARY | 2024-03-11 09:14 | XMS_ITS | Encounter Summary ---
Author Organization [employer] Address [address] [place] [address] Care Team Providers Care Associate Theatre Professor Name Role Phone Juan José Kendall MD Primary Care Provider +- [phone] Juan José Kendall MD Unavailable [phone] Encounter Details Date Type Department Care Team (Late st Contact Info) Description 01/30/2019 Transcribed Document [facility] [place] [address] [place] [address] ProviderLaurie MD [address] [place] [address] Social History Tobacco Use Types Packs/Day Years Used Date Smoking Tobacco: Never Assessed Comments Unknown Sex and Gender Information Value Date Recorded Sex Assigned at Not on file Legal Sex Female 2:23 PM CDT Gender Identity Not on file Sexual Orientation Not on file documented as of this encounter Miscellaneous Notes * Cerner Conversion Note - Historical ProviderMD - 01/30/2019 1:00 PM CDT Peripheral Nerve Block Entered On: 01/30/2019 14:48 EDT Performed On: 01/30/2019 13:00 EDT by Indira Minor Nurse - other Peripheral Nerve Block Site Marked and Visible : Yes Peripheral Nerve Block Start Date/Time : 01/30/2019 13:00 EDT Verbally Confirm Pt, Site, and Procedure : Yes Site Preparation : Chlorhexidine (Hibiclens) Indira Minor Nurse - other - 01/30/2019 14:46 EDT Peripheral Nerve Block : Femoral Indira Minor Nurse - other - 01/30/2019 14:48 EDT Laterality : Right Peripheral Nerve Block Performed by : NICK KERN DO-ANS Medication Delivery Method : Single Shot Peripheral Nerve Block Assisted by : Indira Minor Nurse - azael Ultra sound used during insertion : Yes Nerve Block Activity, Patient Tolerance : Good Peripheral Nerve Block Comment : pre op nerve block per surgeon request Peripheral Nerve Block End Date/Time : 01/30/2019 13:15 EDT Indira Minor Nurse - other - 01/30/2019 14:46 EDT Electronically signed by [facility] Conversion Ordnance Engineering Technician Cerner at 07/24/2022 3:52 PM CDT documented in this encounter Plan of Treatment Not on file documented as of this encounter Visit Diagnoses Not on filedocumented in this encounter Care Teams Associate Theatre Professor Relationship Specialty Start Date End Date Juan José Kendall MD [address] [facility] [address] [place] [address] PCP - General Family Medicine 12/25/22 Juan José Kendall MD [address] [facility] [address] [place] [address] Referring Physician Family Medicine 12/25/22 documented as of this encounter
--- OUTSIDE RECORDS SUMMARY | 2024-03-11 09:14 | XMS_ITS | Encounter Summary ---
Author Organization [employer] Address [address] [facility] [address] [place] [address] Care Team Providers Care Pe Teacher Name Role Phone Juan José Kendall MD Primary Care Provider +- [phone] Juan José Kendall MD Unavailable [phone] Encounter Details Date Type Department Care Team (Late st Contact Info) Description 01/30/2019 Transcribed Document [facility] [place] [facility] [place] [address] ProviderLaurie MD [address] [place] [id number] Social History Tobacco Use Types Packs/Day Years Used Date Smoking Tobacco: Never Assessed Comments Unknown Sex and Gender Information Value Date Recorded Sex Assigned at Not on file Legal Sex Female 2:23 PM CDT Gender Identity Not on file Sexual Orientation Not on file documented as of this encounter Miscellaneous Notes * Cerner Conversion Note - Historical ProviderMD - 01/30/2019 1:00 PM CDT Spiritual Care Assessment Entered On: 01/30/2019 14:14 EDT Performed On: 01/30/2019 13:00 EDT by LAWRENCE RICHARDS Chaplain-Non Cert General Information Initial Visit : Yes Referred by : Nurse Ministry Provided to : Patient, Family/Significant other Jew Preference : LAWRENCE Chavez Chaplain-Non Cert - 01/30/2019 14:13 EDT Spiritual Assessment Spiritual Assessment Comment/Summary Points : Trudi requests prayer prior to her surgery today. Her is with her and appears supportive. Spirital Assessment Comment/Summary Report : SPIRITUAL ASSESSMENT COMMENT/SUMMARY No qualifying data available. LAWRENCE RICHARDS Chaplain-Non Cert - 01/30/2019 14:13 EDT Interventions Emotional Support : Emotional, Family/Significant other supported Spiritual and Jew : Prayer shared LAWRENCE RICHARDS Chaplain-Non Cert - 01/30/2019 14:13 EDT Electronically signed by [facility] Conversion Mash Filter Operator Cerner at 07/24/2022 3:40 PM CDT documented in this encounter Plan of Treatment Not on file documented as of this encounter Visit Diagnoses Not on filedocumented in this encounter Care Teams Pe Teacher Relationship Specialty Start Date End Date Juan José Kendall MD [address] [facility] [address] [place] [address] PCP - General Family Medicine 12/25/22 Juan José Kendall MD [address] [facility] [address] [place] [address] Referring Physician Family Medicine 12/25/22 documented as of this encounter
--- OUTSIDE RECORDS SUMMARY | 2024-03-11 09:15 | XMS_ITS | Encounter Summary ---
Author Organization [employer] Address [address] [facility] [place] [address] Care Team Providers Care Child And Family Counselor Name Role Phone Juan José Kendall MD Primary Care Provider +- [phone] Juan José Kendall MD Unavailable [phone] Encounter Details Date Type Department Care Team (Late st Contact Info) Description 10/05/2018 Transcribed Document [facility] Family Medicine [facility] [place] [address] ProviderLaurie MD [address] [place] [id number] Social History Tobacco Use Types Packs/Day Years Used Date Smoking Tobacco: Never Assessed Comments Unknown Sex and Gender Information Value Date Recorded Sex Assigned at Not on file Legal Sex Female 2:23 PM CDT Gender Identity Not on file Sexual Orientation Not on file documented as of this encounter Miscellaneous Notes * Cerner Conversion Note - Laurie ProviderMD - 10/05/2018 9:00 PM CDT Pain Assessment Entered On: 10/05/2018 23:10 EDT Performed On: 10/05/2018 21:43 EDT by Anna Lowe Rn Intervention Information: acetaminophen Performed by Anna Lowe Rn on 10/05/2018 20:43:00 EDT acetaminophen,500mg Oral Pain Assessment Pain Assessment : Follow-up assessment Pain Scale Goal : 3 Pain Scale Used : 0-10 Scale Pain Intervention, Drug : Medicated Pain Improved by Intervention : Yes Anna Lowe Rn - 10/05/2018 23:10 EDT Pain Scale Intensity : 0 Anna Lowe Rn - 10/05/2018 23:10 EDT Image 4 - Images currently included in the form version of this document have not been included in the text rendition version of the form. Electronically signed by Adia Fink Conversion Financial Report Service Sales Agent Cerner at 07/24/2022 3:37 PM CDT documented in this encounter Plan of Treatment Not on file documented as of this encounter Visit Diagnoses Not on filedocumented in this encounter Care Teams Child And Family Counselor Relationship Specialty Start Date End Date Juan José Kendall MD [address] [facility] [address] [place] [address] PCP - General Family Medicine 12/25/22 [place] [address] [place] [address] [address] [place] [address] Referring Physician Family Medicine 12/25/22 documented as of this encounter
--- OUTSIDE RECORDS SUMMARY | 2024-03-11 09:15 | XMS_ITS | Encounter Summary ---
Author Organization [employer] Address [address] [place] [address] Care Team Providers Care Nuclear Powerplant Mechanic Helper Name Role Phone Juan José Kendall MD Primary Care Provider + [phone] Juan José Kendall MD Unavailable [phone] Encounter Details Date Type Department Care Team (Late st Contact Info) Description 10/05/2018 Transcribed Document [facility] [place] [facility] [place] [address] ProviderLaurie MD [address] [place] [address] Social History Tobacco Use Types Packs/Day Years Used Date Smoking Tobacco: Never Assessed Comments Unknown Sex and Gender Information Value Date Recorded Sex Assigned at Not on file Legal Sex Female 2:23 PM CDT Gender Identity Not on file Sexual Orientation Not on file documented as of this encounter Miscellaneous Notes * Cerner Conversion Note - Historical ProviderMD - 10/05/2018 6:00 PM CDT Patch Check Entered On: 10/05/2018 18:34 EDT Performed On: 10/05/2018 18:00 EDT by Lisa Haile RN Patch Check Patch Check Result : Yes Patch Check - Type of Patch : scopolamine (Transderm-Scop) Patch Check - Location : Left Ear Lisa Haile RN - 10/05/2018 18:34 EDT documented in this encounter Plan of Treatment Not on file documented as of this encounter Visit Diagnoses Not on filedocumented in this encounter Care Teams Nuclear Powerplant Mechanic Helper Relationship Specialty Start Date End Date Juan José Kendall MD [address] [place] [address] PCP - General Family Medicine 12/25/22 Juan José Kendall MD [address] [place] [address] Referring Physician Family Medicine 12/25/22 documented as of this encounter
--- OUTSIDE RECORDS SUMMARY | 2024-03-11 09:15 | XMS_ITS | Encounter Summary ---
Author Organization [employer] Address [address] [place] [address] Care Team Providers Care Gaggerman Name Role Phone Juan José Kendall MD Primary Care Provider + [phone] Juan José Kendall MD Unavailable [phone] Encounter Details Date Type Department Care Team (Late st Contact Info) Description 10/05/2018 Transcribed Document [facility] [place] Family Medicine [address] [place] [address] ProviderLaurie MD [address] [place] [address] Social History Tobacco Use Types Packs/Day Years Used Date Smoking Tobacco: Never Assessed Comments Unknown Sex and Gender Information Value Date Recorded Sex Assigned at Not on file Legal Sex Female 2:23 PM CDT Gender Identity Not on file Sexual Orientation Not on file documented as of this encounter Miscellaneous Notes * Cerner Conversion Note - Historical ProviderMD - 10/05/2018 5:00 PM CDT Chart Check - Review Order Profile Entered On: 10/05/2018 17:05 EDT Performed On: 10/05/2018 17:00 EDT by Lisa Haile RN Chart Check Powerplans Initiated/Discontinued as Appropriate : Yes All Active Orders Reviewed : Yes Lisa Haile RN - 10/05/2018 17:05 EDT documented in this encounter Plan of Treatment Not on file documented as of this encounter Visit Diagnoses Not on filedocumented in this encounter Care Teams Gaggerman Relationship Specialty Start Date End Date Juan José Kendall MD [address] [place] [address] PCP - General Family Medicine 12/25/22 Juan José Kendall MD [address] [place] [phone] Referring Physician Family Medicine 12/25/22 documented as of this encounter
--- OUTSIDE RECORDS SUMMARY | 2024-03-11 09:15 | XMS_ITS | Encounter Summary ---
Author Organization [employer] Address [address] [facility] [place] [address] Care Team Providers Care Assistant County Engineer Name Role Phone Juan José Kendall MD Primary Care Provider +- [phone] Juan José Kendall MD Unavailable [phone] Encounter Details Date Type Department Care Team (Late st Contact Info) Description 10/04/2018 Transcribed Document [facility] [place] [facility] [place] [address] ProviderLaurie MD [address] [place] [id number] Social History Tobacco Use Types Packs/Day Years Used Date Smoking Tobacco: Never Assessed Comments Unknown Sex and Gender Information Value Date Recorded Sex Assigned at Not on file Legal Sex Female 2:23 PM CDT Gender Identity Not on file Sexual Orientation Not on file documented as of this encounter Miscellaneous Notes * Cerner Conversion Note - Laurie ProviderMD - 10/04/2018 3:00 AM CDT Pain Assessment Entered On: 10/04/2018 6:34 EDT Performed On: 10/04/2018 5:26 EDT by FRANCISCO MOREJON RN Intervention Information: acetaminophen Performed by FRANCISCO MOREJON RN on 10/04/2018 04:26:00 EDT acetaminophen,500mg Oral Pain Assessment Pain Assessment : Follow-up assessment Pain Scale Goal : 3 Pain Scale Used : 0-10 Scale FRANCISCO MOREJON RN - 10/04/2018 6:34 EDT Pain Scale Intensity : 0 FRANCISCO MOREJON RN - 10/04/2018 6:34 EDT Image 4 - Images currently included in the form version of this document have not been included in the text rendition version of the form. documented in this encounter Plan of Treatment Not on file documented as of this encounter Visit Diagnoses Not on filedocumented in this encounter Care Teams Assistant County Engineer Relationship Specialty Start Date End Date Juan José Kendall MD [address] [facility] [address] [place] [id number] PCP - General Family Medicine 12/25/22 Juan José Kendall MD [address] [facility] [address] [place] [phone] Referring Physician Family Medicine 12/25/22 documented as of this encounter
--- OUTSIDE RECORDS SUMMARY | 2024-03-11 09:15 | XMS_ITS | Encounter Summary ---
Author Organization [employer] Address [address] [place] [address] Care Team Providers Care Mice Raiser Name Role Phone Juan José Kendall MD Primary Care Provider + [phone] Juan José Kendall MD Unavailable [phone] Encounter Details Date Type Department Care Team (Late st Contact Info) Description 10/06/2018 Transcribed Document [facility] [place] [address] ProviderLaurie MD [address] [place], [place] [address] Social History Tobacco Use Types Packs/Day Years Used Date Smoking Tobacco: Never Assessed Comments Unknown Sex and Gender Information Value Date Recorded Sex Assigned at Not on file Legal Sex Female 2:23 PM CDT Gender Identity Not on file Sexual Orientation Not on file documented as of this encounter Miscellaneous Notes * Cerner Conversion Note - Laurie ProviderMD - 10/06/2018 12:15 PM CDT Patient Education Materials Follows: Anemia Anemia is a condition in which you do not have enough red blood cells or hemoglobin. Hemoglobin is a substance in red blood cells that carries oxygen. When you do not have enough red blood cells or hemoglobin (are anemic), your body cannot get enough oxygen and your organs may not work properly. As a result, you may feel very tired or have other problems. What are the causes? Common causes of anemia include: ??? Excessive bleeding. Anemia can be caused by excessive bleeding inside or outside the body, including bleeding from the intestine or from periods in women. ??? Poor nutrition. ??? Long-lasting (chronic) kidney, thyroid, and liver disease. ??? Bone marrow disorders. ??? Cancer and treatments for cancer. ??? HIV (human immunodeficiency virus) and AIDS (acquired immunodeficiency syndrome). ??? Treatments for HIV and AIDS. ??? Spleen problems. ??? Blood disorders. ??? Infections, medicines, and autoimmune disorders that destroy red blood cells. What are the signs or symptoms? Symptoms of this condition include: ??? Minor weakness. ??? Dizziness. ??? Headache. ??? Feeling heartbeats that are irregular or faster than normal (palpitations). ??? Shortness of breath, especially with exercise. ??? Paleness. ??? Cold sensitivity. ??? Indigestion. ??? Nausea. ??? Difficulty sleeping. ??? Difficulty concentrating. Symptoms may occur suddenly or develop slowly. If your anemia is mild, you may not have symptoms. How is this diagnosed? This condition is diagnosed based on: ??? Blood tests. ??? Your medical history. ??? A physical exam. ??? Bone marrow biopsy. Your health care provider may also check your stool (feces) for blood and may do additional testing to look for the cause of your bleeding. You may also have other tests, including: ??? Imaging tests, such as a CT scan or MRI. ??? Endoscopy. ??? Colonoscopy. How is this treated? Treatment for this condition depends on the cause. If you continue to lose a lot of blood, you may need to be treated at a hospital. Treatment may include: ??? Taking supplements of iron, vitamin B12, or folic acid. ??? Taking a hormone medicine (erythropoietin) that can help to stimulate red blood cell growth. ??? Having a blood transfusion. This may be needed if you lose a lot of blood. ??? Making changes to your diet. ??? Having surgery to remove your spleen. Follow these instructions at home: ??? Take pniy-caz-aewqglq and prescription medicines only as told by your health care provider. ??? Take supplements only as told by your health care provider. ??? Follow any diet instructions that you were given. ??? Keep all follow-up visits as told by your health care provider. This is important. Contact a health care provider if: ??? You develop new bleeding anywhere in the body. Get help right away if: ??? You are very weak. ??? You are short of breath. ??? You have pain in your abdomen or chest. ??? You are dizzy or feel faint. ??? You have trouble concentrating. ??? You have bloody or black, tarry stools. ??? You vomit repeatedly or you vomit up blood. Summary ??? Anemia is a condition in which you do not have enough red blood cells or enough of a substance in your red blood cells that carries oxygen (hemoglobin). ??? Symptoms may occur suddenly or develop slowly. ??? If your anemia is mild, you may not have symptoms. ??? This condition is diagnosed with blood tests as well as a medical history and physical exam. Other tests may be needed. ??? Treatment for this condition depends on the cause of the anemia. This information is not intended to replace advice given to you by your health care provider. Make sure you discuss any questions you have with your health care provider. Document Released: 04/29/2005 Document Revised: 04/23/2017 Document Reviewed: 04/23/2017 InPact[employer] Interactive Patient Education ? 2019 Aiming. documented in this encounter Plan of Treatment Not on file documented as of this encounter Visit Diagnoses Not on filedocumented in this encounter Care Teams Mice Raiser Relationship Specialty Start Date End Date Juan José Kendall MD [address] [facility] [address] [place] [address] PCP - General Family Medicine 12/25/22 Juan José Kendall MD [address] [place] [facility] [address] [place] [phone] Referring Physician Family Medicine 12/25/22 documented as of this encounter
--- OUTSIDE RECORDS SUMMARY | 2024-03-11 09:15 | XMS_ITS | Encounter Summary ---
Author Organization [employer] Address [address] [place] [address] Care Team Providers Care Wellness Guide Name Role Phone Juan José Kendall MD Primary Care Provider +- [phone] Juan José Kendall MD Unavailable [phone] Encounter Details Date Type Department Care Team (Late st Contact Info) Description 10/05/2018 Transcribed Document [facility] [place] [facility] [place] [address] ProviderLaurie MD [address] [place] [address] Social History Tobacco Use Types Packs/Day Years Used Date Smoking Tobacco: Never Assessed Comments Unknown Sex and Gender Information Value Date Recorded Sex Assigned at Not on file Legal Sex Female 2:23 PM CDT Gender Identity Not on file Sexual Orientation Not on file documented as of this encounter Miscellaneous Notes * Cerner Conversion Note - Laurie ProviderMD - 10/05/2018 8:54 AM CDT Care Management Assessment/Plan Entered On: 10/05/2018 8:54 EDT Performed On: 10/05/2018 8:54 EDT by PJ NELSON Care Management Note Care Management Note : 10/05/2018 [phone][facility] to request coverage for continued LTACH services. Approval pending. Auth# [id number]. Care Management Note Report : PJ NELSON - 10/05/18 08:47:08 Patient/ chose [facility]. Per Ashley, insurance preauth was started, awaiitng response. PJ NELSON 10/04/18 10:04:33 10/04/2018 Bed offer received from [facility]. Family notified,now requesting to reconsider [facility]. I have explained that we need an answer for which place the prefer so that we can move forward with placement. states he will call both facilities, and they will make a decision. PJ NELSON 10/03/18 15:02:06 10/03/2018 Spoke with [facility], they do not have a contract with [facility]. PJ NELSON 10/03/18 14:57:34 10/03/2018 Call received from [facility], they are unable to offer a bed for this patient. Patient and notified. They request a referral be faxed to [facility] (P: [phone] F: [phone]), faxed per their request. Awaiting a call back. PJ NELSNO 10/03/18 13:54:20 10/03/2018 Bev Lewis, here to [...] it be close to her home in [place]. Referrals faxed to Debbie Patricia (Signature liaison), [facility], and [facility]. Awaiting a call back. PJ NELSON 09/28/18 16:26:43 09/28/2018 Fax recieved from [facility] with approval for LTACH services 09/29-10/04. Auth# [id number]. Fax next clinical review to [phone] on 10/05/2018. PJ NELSON 09/28/18 08:24:24 09/28/2018 [facility] ([phone][facility] to request coverage for continued LTACH services. Approval pending. Auth# [id number]. PJ NELSON - 09/21/18 15:48:14 09/21/2018 Fax recieved from [facility] with approval for LTACH coverage 09/22/2018-09/28/2018. Auth# [id number]. Fax next clinical review to [phone] on 09/28/2018. PJ NELSON - 09/21/18 08:22:57 09/21/2018 Clinical review faxed to [facility] ([phone]) to request coverage for continued LTACH services. Approval pending. Auth# [id number]. PJ NELSON - 09/15/18 11:34:17 09/15/2018 Fax recieved from [facility] with approval for LTACH services 09/15-09/21/2018. Auth# [id number]. Fax next clinical review to [phone] on 09/21/2018. RASHEED NELSONKATHIEris - 09/14/18 08:28:49 09/14/2018 [facility] ([phone]) to request coverage for continued LTACH services. Approval pending. Auth# [id number]. Chuyita Briceno, Clinical Assessment Liaison - 09/09/18 [...] unit or SNF. She has previously used [facility] and prefers to use them again if needed. The patient owns a shower chair, BSC and w/c. The patient has never needed a dialysis clinic. The patient has not fallen in the past 3 months. PCP- [facility]. [facility] Orthopedic- Dr. Shay Guerrero [facility]- [facility] SN[facility]- [facility]- [facility] Natalia The patient does wish to return home upon discharge but understands that rehab/SNF may be needed. All papers were explained and signed. No other issues. CM will continue to monitor. Documentation Status Complete : Yes PJ NELSON - 10/05/2018 8:54 EDT Electronically signed by [facility], [facility] Conversion Assistant Professor Of Physics Cerner at 07/24/2022 3:32 PM CDT documented in this encounter Plan of Treatment Not on file documented as of this encounter Visit Diagnoses Not on filedocumented in this encounter Care Teams Wellness Guide Relationship Specialty Start Date End Date Juan José Kendall MD [address] [facility] [address] [place] [address] PCP - General Family Medicine 12/25/22 Juan José Kendall MD [address] [facility] [address] [place] [address] Referring Physician Family Medicine 12/25/22 documented as of this encounter
--- OUTSIDE RECORDS SUMMARY | 2024-03-11 09:15 | XMS_ITS | Encounter Summary ---
Author Organization [facility] [employer] Address [address] [place] [address] Care Team Providers Care Vice President Payment Name Role Phone Unavailable Primary Care Provider Unavailabl e Encounter Details Date Type Department Care Team (Late st Contact Info) Description 10/04/2018 Historic Encounter [facility] [address] [place] [address] Provider, [facility] Historical Social History Tobacco [...] Procedure Name Priority Date/Time Associated Diagnosis Comments BMP BASIC METABOLIC PANEL ([facility] BKR DATA CONV) Routine 10/04/2018 4:30 AM EDT PLATELET COUNT Routine 10/04/2018 4:30 AM EDT documented in this encounter Results * Platelet count (10/04/2018 4:30 AM EDT) Platelet Count 189 163 - 369 K/uL 10/04/2018 10:25 AM EDT Blood 10/04/2018 4:30 AM EDT 10/04/2018 10:22 AM EDT [facility] Historical Provider LAB BLOOD ORDERABLES Fi nal Result [facility] [address] [place] [address] * (ABNORMAL) BMP BASIC METABOLIC PANEL ([facility] BKR DATA CONV) (10/04/2018 4:30 AM EDT) Glucose Level 86 74 - 106 mg/dL 10/04/2018 10:42 AM EDT Comment: [employer] has become aware of sulfasalazine and sulfapyridine [...] administration of the drug. Blood Urea Nitrogen 14 7 - 22 mg/dL 10/04/2018 10:42 AM EDT Creatinine Level 1.30(H) 0.55 - 1.02 mg/dL 10/04/2018 10:42 AM EDT Sodium Level 145 136 - 146 mmol/L 10/04/2018 10:42 AM EDT Potassium Level 3.5 3.5 - 5.1 mmol/L 10/04/2018 10:42 AM EDT Chloride Level 111 102 - 112 mmol/L 10/04/2018 10:42 AM EDT Carbon Dioxide Level 26 21 - 32 mmol/L 10/04/2018 10:42 AM EDT Anion Gap 12 9 - 20 10/04/2018 10:42 AM EDT Calcium Level 8.8 8.4 - 10.1 mg/dL 10/04/2018 10:42 AM EDT Bun/Creatinine 10.8 8.0 - 20.0 10/04/2018 10:42 AM EDT eGFR NonAfrican 41(L) >=60 mL/min/1. 73m2 10/04/2018 10:42 AM EDT Comment: GFR <60 suggests chronic kidney disease, if found over 3 month period. GFR <15 indicates renal failure. eGFR 50(L) >=60 mL/min/1. 73m2 10/04/2018 10:42 AM EDT Comment: GFR <60 suggests chronic kidney disease, if found over 3 month period. GFR <15 indicates renal failure. Blood 10/04/2018 4:30 AM EDT 10/04/2018 10:22 AM EDT us [facility] Historical Provider LAB BLOOD ORDERABLES Fi nal Result Performing Organization Address City/State/[facility] Co de Phone Number [facility] [address] [phone] documented in this encounter Visit Diagnoses Not on filedocumented in this encounter
--- OUTSIDE RECORDS SUMMARY | 2024-03-11 09:15 | XMS_ITS | Encounter Summary ---
Author Organization [employer] Address [address] [place] [address] Care Team Providers Care Health Administrator Name Role Phone Juan José Kendall MD Primary Care Provider +- [phone] Juan José Kendall MD Unavailable [phone] Encounter Details Date Type Department Care Team (Late st Contact Info) Description 10/05/2018 Transcribed Document [facility] [place] [address] ProviderLaurie MD [address] [place] [address] Social History Tobacco Use Types Packs/Day Years Used Date Smoking Tobacco: Never Assessed Comments Unknown Sex and Gender Information Value Date Recorded Sex Assigned at Not on file Legal Sex Female 2:23 PM CDT Gender Identity Not on file Sexual Orientation Not on file documented as of this encounter Miscellaneous Notes * Cerner Conversion Note - Laurie ProviderMD - 10/05/2018 10:36 AM CDT Patient: TRUDI BLAIR Age: 63 years Sex: Female : 1955 Associated Diagnoses: None Author: JULIAN CALERO PA Pre-OP/Procedure Diagnosis: No longer needs antibiotics. Indication: Request for catheter removal. Procedure Performed: Right tunneled catheter removal Procedural MD: Dr. Cabrera Mc Kay Stitcher: Julian Calero PA-C Sedation: None Findings: Successful removal of right tunneled catheter Complications: No immediate EBL: <1mL Specimen(s) Removed: None Full report to follow. documented in this encounter Plan of Treatment Not on file documented as of this encounter Visit Diagnoses Not on filedocumented in this encounter Care Teams Health Administrator Relationship Specialty Start Date End Date Juan José Kendall MD [address] [facility] [address] [place] [address] PCP - General Family Medicine 12/25/22 Juan José Kendall MD [address] [facility] [address] [place] [address] Referring Physician Family Medicine 12/25/22 documented as of this encounter
--- OUTSIDE RECORDS SUMMARY | 2024-03-11 09:15 | XMS_ITS | Encounter Summary ---
Author Organization [employer] Address [address] [place] [address] Care Team Providers Care Microsoft Application Developer Name Role Phone Romulo Kendall MD Primary Care Provider + [phone] Romulo Kendall MD Unavailable [phone] Encounter Details Date Type Department Care Team (Late st Contact Info) Description 10/06/2018 Transcribed Document [facility] [place] [address] ProviderLaurie MD [address] [place] [address] Social History Tobacco Use Types Packs/Day Years Used Date Smoking Tobacco: Never Assessed Comments Unknown Sex and Gender Information Value Date Recorded Sex Assigned at Not on file Legal Sex Female 2:23 PM CDT Gender Identity Not on file Sexual Orientation Not on file documented as of this encounter Miscellaneous Notes * Cerner Conversion Note - Laurie Garcia MD - 10/06/2018 12:16 PM CDT [address] [address] TRUDI BLAIR :1955 Visit Time:10/05/2018 Your Visit Summary Your Care Team Admitting Physician - JONES HIDALGO MD-INT Attending Physician - JONES HIDALGO MD-INT Primary Care Physician - ROMULO KENDALL (REF), Referring Physician - JONES HIDALGO MD-ENRIQUE Your Diagnosis Acute kidney injury resolved Anemia Arthritis due to other bacteria, unspecified joint, Arthritis due to other bacteria, unspecified joint GERD (gastroesophageal reflux disease) Hypercholesterolemia with endogenous hyperglyceridemia Hypertension Left calf posterior vein thrombosis 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 and spacer antibiotic placement Malnutrition, severe Morbid obesity with BMI of 45.0-49.9, adult MRSA and Enterobacter Bacteremia Obstructive sleep apnea These Are Your Goals To get better and get home. - Not met Discharge Vitals Temperature 36.7 ??C Heart Rate 79 Respiratory Rate 15 Blood Pressure 150/68 What to do next Instructions From Your Care Team Discharge 10/06/2018 to [facility] @ 1300 ([facility]) Call report to [phone] Fax DC summary to [phone] Discharge Activity: As per Dr. Santacruz recommendations, Discharge Activity: Other (use Special Instructions) Diet: Discharge Diet: Resume usual diet as tolerated Follow-Up Appointments Follow Up with ABIEL ROBLES MD-ORT When 10/25/2018 10:30 AM EDT Comments Recommendations for knee fusion/amputation Where: [address] [place] [address]- Follow Up with AMRITA BARNARD When 10/19/2018 01:15 PM EDT Where: [address] [facility] [place] [address]- Business (1) Follow Up with JONG SANTACRUZ MD-ORT When Within 6 weeks Comments Family/facility to call for follow-up appointment after seen by Dr. Robles Where: [address] [facility] [address] [place] [address]- Medications What How Much When Instructions Next Dose atorvastatin (atorvastatin 20 mg oral tablet) 1 Tablet(s) Oral At Bedtime cholestyramine (Cholestyramine Light) 4 Gram(s) Oral Two Times A Day heparin (heparin 5000 units/ mL injectable solution) 1 Milliliter(s) SubCutaneous Interval Every 8 Hours magnesium hydroxide (Milk of Magnesia 8% oral suspension) 30 Milliliter(s) Oral Every Day as needed for Constipation promethazine (promethazine 25 mg oral tablet) 0.5 Tablet(s) Oral Every 6 Hours as needed for Nausea/Vomiting saccharomyces boulardii lyo 250 Milligram(s) Oral Every Day simethicone (simethicone 80 mg oral tablet, chewable) 1 Tablet(s) Oral Every 6 Hours as needed for Other (See Comment) traZODone (traZODone 50 mg oral tablet) 1 Tablet(s) Oral At Bedtime as needed for Insomnia metoclopramide (metoclopramide 10 mg oral tablet) 1 Tablet(s) Oral Two Times A Day metoprolol (Metoprolol Succinate ER 25 mg oral tablet, extended release) oxyCODONE (oxyCODONE 5 mg oral capsule) 1 Capsule(s) Oral Every 4 Hours as needed for as needed for pain Duration: 2 Day(s) 1-2 by mouth every 4-6 hours when necessary acetaminophen (acetaminophen 500 mg oral tablet) 1 Tablet(s) Oral Interval Every 6 Hours ammonium lactate topical (Amlactin 12% topical lotion) 1 Application(s) Topical Two Times A Day pantoprazole (pantoprazole 40 mg oral delayed release tablet) 1 Tablet(s) Oral Every Day topiramate (topiramate 25 mg oral capsule) 1 Capsule(s) Oral Two Times A Day Take your medications faithfully. Do NOT skip [...] This Visit No Immunizations Found Education Materials Malnutrition Malnutrition is any condition in which nutrition is poor. There are many forms of malnutrition. A common form is having too little of one kind of nutrient (nutritional deficiency). Nutrients include proteins, minerals, carbohydrates, fats, and vitamins. They provide the body with energy and keep the body working normally. Malnutrition ranges from mild to severe. The condition affects the body's defense system (immune system). Because of this, people who are malnourished are more likely to develop health problems and get sick. What are the causes? Causes of malnutrition include: ??? Eating an unbalanced diet. ??? Eating too much of certain foods. ??? Eating too little. ??? Conditions that decrease the body's ability to use nutrients. What increases the risk? Risk factors include: ??? and . Women who are may become malnourished if they do not increase their nutrient intake. They are also susceptible to folic acid deficiency. ??? Increasing age. The body's ability to absorb nutrients decreases with age. This can contribute to iron, calcium, and vitamin D deficiencies. ??? Alcohol or drug dependency. Addiction often leads to a lifestyle in which proper nourishment is ignored. Dependency can also hurt the metabolism and the body's ability to absorb nutrients. Alcoholism is a major cause of thiamine deficiency and can lead to deficiencies of magnesium, zinc, and other vitamins. ??? Eating disorders, such as anorexia nervosa. People with these disorders may eat too little or too much. ??? Chewing or swallowing problems. People with these disorders may not eat enough. ??? Certain diseases, including: ? Long-lasting (chronic) diseases. Chronic diseases tend to affect the absorption of calcium, iron, and vitamins B12, A, D, E, and K. ? Liver disease. Liver disease affects the storage of vitamins A and B12. It also interferes with the metabolism of protein and energy sources. ? Kidney disease. Kidney disease may cause deficiencies of protein, iron, and vitamin D. ? Cancer or AIDS. These diseases can cause a loss of appetite. ? Cystic fibrosis. This disease can make it difficult for the body to absorb nutrients. ??? Certain diets, including. ? The vegetarian diet. Vegetarians are at risk for iron deficiency. ? The vegan diet. Vegans are susceptible to vitamin B12, calcium, iron, vitamin D, and zinc deficiencies. ? The fruitarian diet. This diet can be deficient in protein, sodium, and many micronutrients. ? Many commercial fad diets, including those that claim to enhance well-being and reduce weight. ? Very low calorie diets. ??? Low income. People with a low income may have trouble paying for nutritious foods. What are the signs or symptoms? Signs and symptoms depend on the kind of malnutrition you have. Common symptoms include: ??? Fatigue. ??? Weakness. ??? Dizziness. ??? Fainting ??? Weight loss. ??? Poor immune response. ??? Lack of menstruation. ??? Hair loss. ??? Poor memory. How is this diagnosed? Malnutrition may be diagnosed by: ??? A medical history. ??? A dietary history. ??? A physical exam. This may include a measurement of your body mass index (BMI). ??? Blood tests. How is this treated? Treatments vary depending on the cause of the malnutrition. Common treatments include: ??? Dietary changes. ??? Dietary supplements, such as vitamins and minerals. ??? Treatment of any underlying conditions. Follow these instructions at home: ??? Eat a balanced diet. ??? Take dietary supplements as directed by your health care provider. ??? Exercise regularly. Exercising can improve appetite. ??? Keep all follow-up visits as directed by your health care provider. This is important. How is this prevented? Eating a well-balanced diet helps to prevent most forms of malnutrition. Contact a health care provider if: ??? You have increased weakness or fatigue. ??? You faint. ??? You stop menstruating. ??? You have rapid hair loss. ??? You have unexpected weight loss. This information is not intended to replace advice given to you by your health care provider. Make sure you discuss any questions you have with your health care provider. Document Released: 02/05/2006 Document Revised: 08/27/2016 Document Reviewed: 11/16/2014 [employer] Interactive Patient Education ?? 2019 [employer] Anemia Anemia is a condition in which [...] Follow these instructions at home: ??? Take jpdc-jem-rxevdud and prescription medicines only as told by [...] 04/29/2005 Document Revised: 04/23/2017 Document Reviewed: 04/23/2017 [employer] Interactive Patient Education ?? 2019 [employer] Emergency Awareness and Preventative Care STROKE is [...] Assistance with quitting is available by contacting 3-598-JSQU-NOW. This is a free resource providing counseling, [...] This Visit (last charted value for your 10/05/2018 visit) Hematology 10/06/18 04:46:00 Platelet Count: 180 K/uL -- Normal range between ( 163 and 369 ) 10/03/18 04:10:00 WBC: 5.9 K/uL -- Normal range between ( 4.5 and 10.5 ) RBC: 2.72 Million/uL -- Normal range between ( 3.93 and 5.22 ) Hct: 26.6 % -- Normal range between ( 34.1 and 44.9 ) Hgb: 8.5 g/dL -- Normal range between ( 11.2 and 15.7 ) MCH: 31.3 pg -- Normal range between ( 25.6 and 32.2 ) MCHC: 32.0 Gram/dL -- Normal range between ( 32.2 and 36.5 ) MCV: 97.8 fL -- Normal range between ( 79.0 and 94.8 ) Slide Review: No Eos %: 6.6 % -- Normal range between ( 0.0 and 7.0 ) Edwards #: 0.62 K/uL -- Normal range between ( 0.16 and 1.00 ) Eos #: 0.39 x10(3)/uL -- Normal range between ( 0.00 and 0.80 ) Edwards %: 10.5 % -- Normal range between ( 3.0 and 9.0 ) Sed Rate Auto: 33 mm/Hr -- Normal range between ( 0 and 30 ) Baso %: 0.3 % -- Normal range between ( 0.0 and 1.5 ) Baso #: 0.02 x10(3)/uL -- Normal range between ( 0.00 and 0.20 ) RDW: 17.2 % -- Normal range between ( 11.7 and 14.9 ) Neut %: 63.9 % -- Normal range between ( 34.0 and 71.0 ) Neut #: 3.78 K/uL -- Normal range between ( 1.56 and 6.13 ) Lymph %: 18.2 % -- Normal range between ( 19.3 and 53.1 ) Lymph #: 1.08 x10(3)/uL -- Normal range between ( 1.00 and 3.90 ) MPV: 11.6 fL -- Normal range between ( 9.4 and 12.4 ) IG#: 0.03 x10(3)/uL -- Normal range between ( 0.00 and 0.05 ) IG%: 0.50 % -- Normal range between ( 0.00 and 0.60 ) General Chemistry 10/06/18 04:46:00 Creatinine Level: 1.30 mg/dL -- Normal range between ( 0.55 and 1.02 ) Sodium Level: 143 mmol/L -- Normal range between ( 136 and 146 ) Potassium Level: 3.6 mmol/L -- Normal range between ( 3.5 and 5.1 ) Chloride Level: 112 mmol/L -- Normal range between ( 102 and 112 ) Carbon Dioxide Level: 25 mmol/L -- Normal range between ( 21 and 32 ) Anion Gap: 10 -- Normal range between ( 9 and 20 ) Bun/Creatinine: 9.2 -- Normal range between ( 8.0 and 20.0 ) Calcium Level: 8.7 mg/dL -- Normal range between ( 8.4 and 10.1 ) eGFR : 50 mL/min/1.73m2 eGFR NonAfrican: 41 mL/min/1.73m2 Glucose Level: 90 mg/dL -- Normal range between ( 74 and 106 ) Blood Urea Nitrogen: 12 mg/dL -- Normal range between ( 7 and 22 ) 10/03/18 04:10:00 Bilirubin Total: 0.3 mg/dL -- Normal range between ( 0.2 and 1.2 ) A/G Ratio: 0.7 -- Normal range between ( 1.1 and 2.5 ) ALT: 9 Units/Liter -- Normal range between ( 13 and 56 ) AST: 12 Units/Liter -- Normal range between ( 5 and 37 ) Globulin: 3.2 Gram/dL -- Normal range between ( 1.5 and 4.5 ) Alk Phos: 112 Units/Liter -- Normal range between ( 27 and 136 ) CRP: 3.3 mg/dL -- Normal range between ( 0.0 and 0.9 ) Protein Total: 5.5 Gram/dL -- Normal range between ( 6.4 and 8.2 ) Albumin Level: 2.3 Gram/dL -- Normal range between ( 3.4 and 5.0 ) 09/23/18 06:08:00 Lipase Level: 191 Units/Liter -- Normal range between ( 73 and 393 ) 09/19/18 05:26:00 Magnesium Level: 2.0 mg/dL -- Normal range between ( 1.5 and 2.4 ) Phosphorus: 2.8 mg/dL -- Normal range between ( 2.5 and 4.9 ) Cardiac Specific Markers 09/15/18 04:36:00 CK: 32 Units/Liter -- Normal range between ( 26 and 192 ) Coagulation 10/05/18 04:10:00 INR: 1.0 -- Normal range between ( 0.9 and 1.1 ) PTT: 32.7 Second(s) -- Normal range between ( 22.0 and 32.0 ) PT: 10.7 Second(s) -- Normal range between ( 9.6 and 12.0 ) Therapeutic Drugs 09/30/18 09:40:06 Vancomycin Trough: 12.2 mcg/mL -- Normal range between ( 5.0 and 15.0 ) 09/24/18 06:35:00 Vancomycin Random: 14.3 mcg/mL Protein & Immunoglobulin Studies 10/03/18 04:10:00 Prealbumin: 10.9 mg/dL -- Normal range between ( 20.0 and 40.0 ) Patient Name:TRUDI BLAIR I have received and understand this information and was given the opportunity to ask questions. Patient/Podiatrist Name: Patient/Podiatrist Signature: Relationship to Patient: Clinician/Hospital Podiatrist Signature: Date: Electronically signed by Aleks [facility] Conversion Machine Cleaner Cerner at 07/24/2022 3:52 PM CDT documented in this encounter Plan of Treatment Not on file documented as of this encounter Visit Diagnoses Not on filedocumented in this encounter Care Teams Microsoft Application Developer Relationship Specialty Start Date End Date Romulo Kendall MD [address] [place] [address] PCP - General Family Medicine 12/25/22 Romulo Kendall MD [address] [place] [phone] Referring Physician Family Medicine 12/25/22 documented as of this encounter
--- OUTSIDE RECORDS SUMMARY | 2024-03-11 09:15 | XMS_ITS | Encounter Summary ---
Author Organization [employer] Address [address] [place] [address] Care Team Providers Care License Distributor Name Role Phone Juan José Kendall MD Primary Care Provider + [phone] Juan José Kendall MD Unavailable [phone] Encounter Details Date Type Department Care Team (Late st Contact Info) Description 10/06/2018 Transcribed Document [facility] [place] [facility] [place] [address] ProviderLaurie MD [address] [place] [address] Social History Tobacco Use Types Packs/Day Years Used Date Smoking Tobacco: Never Assessed Comments Unknown Sex and Gender Information Value Date Recorded Sex Assigned at Not on file Legal Sex Female 2:23 PM CDT Gender Identity Not on file Sexual Orientation Not on file documented as of this encounter Miscellaneous Notes * Cerner Conversion Note - Historical ProviderMD - 10/06/2018 5:00 AM CDT Chart Check - Review Order Profile Entered On: 10/06/2018 6:02 EDT Performed On: 10/06/2018 5:00 EDT by Anna Lowe, Rn Chart Check Powerplans Initiated/Discontinued as Appropriate : Yes All Active Orders Reviewed : Yes Anna Lowe Rn - 10/06/2018 6:02 EDT documented in this encounter Plan of Treatment Not on file documented as of this encounter Visit Diagnoses Not on filedocumented in this encounter Care Teams License Distributor Relationship Specialty Start Date End Date Juan José Kednall MD [address] [place] [address] [place] [id number] PCP - General Family Medicine 12/25/22 Juan José Kendall MD [address] [place] [phone] Referring Physician Family Medicine 12/25/22 documented as of this encounter
--- OUTSIDE RECORDS SUMMARY | 2024-03-11 09:15 | XMS_ITS | Encounter Summary ---
Author Organization [employer] Address [address] [place] [address] Care Team Providers Care Engineering Lab Technician Name Role Phone Juan José Kendall MD Primary Care Provider +- [phone] Juan José Kendall MD Unavailable +[phone] Encounter Details Date Type Department Care Team (Late st Contact Info) Description 10/06/2018 Transcribed Document [facility] [place] [facility] [place] [address] ProviderLaurie MD [address] [place] [address] Social History Tobacco Use Types Packs/Day Years Used Date Smoking Tobacco: Never Assessed Comments Unknown Sex and Gender Information Value Date Recorded Sex Assigned at Not on file Legal Sex Female 2:23 PM CDT Gender Identity Not on file Sexual Orientation Not on file documented as of this encounter Miscellaneous Notes * Cerner Conversion Note - Historical ProviderMD - 10/06/2018 2:00 AM CDT Bankruptcy Paralegal Details Entered On: 10/06/2018 1:13 EDT Performed On: 10/06/2018 2:00 EDT by Anna Lowe, Rn Order Details Transport Mode Order Detail : Stretcher/Gurney Isolation Precautions Order Detail : Standard Precautions Order Detail : 0 IV Order Detail : 0 Oxygen Order Detail : 0 Nurse Collect Order Detail : 1 Lift/Transfer : Maximal assist Central Line Order Detail : No Room Service : Appropriate Arterial Line : No Anna Lowe, Rn - 10/06/2018 1:12 EDT documented in this encounter Plan of Treatment Not on file documented as of this encounter Visit Diagnoses Not on filedocumented in this encounter Care Teams Engineering Lab Technician Relationship Specialty Start Date End Date Juan José Kendall MD [address] [facility] [address] [place] [address] PCP - General Family Medicine 12/25/22 Juan José Kendall MD [address] [facility] [address] [place] [address] Referring Physician Family Medicine 12/25/22 documented as of this encounter
--- OUTSIDE RECORDS SUMMARY | 2024-03-11 09:15 | XMS_ITS | Encounter Summary ---
Author Organization [employer] Address [address] [facility] [address] Care Team Providers Care Track Announcer Name Role Phone Juan José Kendall MD Primary Care Provider + [phone] Juan José Kendall MD Unavailable [phone] Encounter Details Date Type Department Care Team (Late st Contact Info) Description 10/05/2018 Transcribed Document [facility] [place] [facility] [place] [address] ProviderLaurie MD [address] [place] [address] Social History Tobacco Use Types Packs/Day Years Used Date Smoking Tobacco: Never Assessed Comments Unknown Sex and Gender Information Value Date Recorded Sex Assigned at Not on file Legal Sex Female 2:23 PM CDT Gender Identity Not on file Sexual Orientation Not on file documented as of this encounter Miscellaneous Notes * Cerner Conversion Note - Laurie ProviderMD - 10/05/2018 12:58 PM CDT Care Management Assessment/Plan Entered On: 10/05/2018 13:15 EDT Performed On: 10/05/2018 12:58 EDT by CHAYITO CHARLES, RN Care Management Note Care Management Note : Chayito Charles spoke to Dr. Porter last [...] was okay with her going to a longterm facility and following up with Dr. Robles in 3 weeks then he would see her after that. Care Management Note Report : RASHEED NELSONKATHIEris 10/05/18 11:30:14 10/05/2018 Call received from [facility], they have received the insurance authorization for admission, milton marinelli to get her tomorrow. Dr. Porter notified, and in agreement. Accepting physician Dr. Ordonez. Call report to [phone]. Fax DC summary to [phone]. [facility] transport scheduled for 10/06/2018 @ 1300. LESLIE PJ - 10/05/18 08:54:39 10/05/2018 Clinical review faxed to [facility] ([phone]) to request coverage for continued LTACH services. Approval pending. Auth# [id number]. LESLIE PJ 10/05/18 08:47:08 Patient/ chose [facility]. Per [facility], insurance preauth was started, awaiitng response. LESLIE PJ 10/04/18 10:04:33 10/04/2018 Bed offer received from [facility]. Family notified,now requesting to reconsider [facility]. I have explained that we need an answer for which place the prefer so that we can move forward with placement. states he will call both facilities, and they will make a decision. NELSON PJ - 10/03/18 15:02:06 10/03/2018 Spoke with [facility], they do not have a contract with [place]. PJ NELSON 10/03/18 14:57:34 10/03/2018 Call received from [facility], they are unable to offer a bed for this patient. Patient and notified. They request a referral be faxed to [facility] (P: [phone] F: [phone]), faxed per their request. Awaiting a call back. PJ NELSON - 10/03/18 13:54:20 10/03/2018 Bev Lewis, here to evaluate patient for possible bed placement. PJ NELSON - 10/03/18 09:57:17 10/03/2018 Jose, clinical liaison Zach Donohue, coming to the unit to eval patient for possible bed placement. Updates faxed per their request. PJ NELSON - 09/29/18 16:38:16 09/29/2018 Per ID, abx therapy to stop 10/05/2018. Patient states she is open to rehab, but prefers it be close to her home in [place]. Referrals faxed to Debbie Patricia (Signature liaison), [facility], Zach Donohue, and Ron. Awaiting a call back. PJ NELSON - 09/28/18 16:26:43 09/28/2018 Fax recieved from [facility] with approval for LTACH services 09/29-10/04. Auth# [id number]. Fax next clinical review to [phone] on 10/05/2018. PJ NELSON 09/28/18 08:24:24 09/28/2018 Clinical review faxed to [facility] ([phone]) to request coverage for continued LTACH services. Approval pending. Auth# [id number]. PJ NELSON 09/21/18 15:48:14 09/21/2018 Fax recieved from [facility] with approval for LTACH coverage 09/22/2018-09/28/2018. Auth# [id number]. Fax next clinical review to [phone] on 09/28/2018. PJ NELSON 09/21/18 08:22:57 09/21/2018 Clinical review faxed to [facility] ([phone]) to request coverage for continued LTACH services. Approval pending. Auth# [id number]. PJ NELSON 09/15/18 11:34:17 09/15/2018 Fax recieved from [facility] with approval for LTACH services 09/15-09/21/2018. Auth# [id number]. Fax next clinical review to [phone] on 09/21/2018. PJ NELSON - 09/14/18 08:28:49 09/14/2018 [facility] ([phone]) to request coverage for continued LTACH services. Approval pending. Auth# [id number]. Chuyita Briceno, Clinical Assessment Liaison - 09/09/18 [...] unit or SNF. She has previously used [facility] and prefers to use them again if needed. The patient owns a shower chair, BSC and w/c. The patient has never needed a dialysis clinic. The patient has not fallen in the past 3 months. PCP- Dr. Ranjeet [facility]- Orthopedic- Dr. Shay Guerrero [facility]- - [facility] The patient does wish to return home upon discharge but understands that rehab/SNF may be needed. All papers were explained and signed. No other issues. CM will continue to monitor. Documentation Status Complete : Yes CHAYITO CHARLES RN - 10/05/2018 12:58 EDT documented in this encounter Plan of Treatment Not on file documented as of this encounter Visit Diagnoses Not on filedocumented in this encounter Care Teams Track Announcer Relationship Specialty Start Date End Date Juan José Kendall MD [address] [facility] [address] [place] [address] PCP - General Family Medicine 12/25/22 Juan José Kendall MD [address] [facility] [address] [place] [phone] Referring Physician Family Medicine 12/25/22 documented as of this encounter
--- OUTSIDE RECORDS SUMMARY | 2024-03-11 09:15 | XMS_ITS | Encounter Summary ---
Author Organization [employer] Address [address] [facility] [place] [address] Care Team Providers Care Tattoo Designer Name Role Phone Juan José Kendall MD Primary Care Provider + [phone] Juan José Kendall MD Unavailable [phone] Encounter Details Date Type Department Care Team (Late st Contact Info) Description 10/04/2018 Transcribed Document [facility] [place] [facility] [place] [address] ProviderLaurie MD [address] [place] [address] Social History Tobacco Use Types Packs/Day Years Used Date Smoking Tobacco: Never Assessed Comments Unknown Sex and Gender Information Value Date Recorded Sex Assigned at Not on file Legal Sex Female 2:23 PM CDT Gender Identity Not on file Sexual Orientation Not on file documented as of this encounter Miscellaneous Notes * Cerner Conversion Note - Laurie ProviderMD - 10/04/2018 10:02 AM CDT Care Management Assessment/Plan Entered On: 10/04/2018 10:04 EDT Performed On: 10/04/2018 10:02 EDT by PJ NELSON Care Management Note Care Management Note : 10/04/2018 Bed offer received from [facility]. Family notified,now requesting to reconsider [place]. I have explained that we need an answer for which place the prefer so that we can move forward with placement. states he will call both facilities, and they will make a decision. Care Management Note Report : PJ NELSON - 10/03/18 15:02:06 10/03/2018 Spoke with Grand Arianna Acevedo, they do not have a contract with [place]. PJ NELSON - 10/03/18 14:57:34 10/03/2018 Call received from [facility] Velasquez, they are unable to offer a bed for this patient. Patient and notified. They request a referral be faxed to [facility] (P: [phone] F: [phone]), faxed per their request. Awaiting a call [...] it be close to her home in [place]. Referrals faxed to Debbie Patricia (Signature liaison), Zach Au, and Ron. Awaiting a call back. PJ NELSON - 09/28/18 16:26:43 09/28/2018 Fax recieved from [facility] with approval for LTACH services 09/29-10/04. Auth# [id number]. Fax next clinical review to [phone] on 10/05/2018. PJ NELSON 09/28/18 08:24:24 09/28/2018 Clinical review faxed to [facility] ([phone]) to request coverage for continued LTACH services. Approval pending. Auth# [id number]. PJ NELSON 09/21/18 15:48:14 09/21/2018 Fax recieved from [facility] with approval for LTACH coverage 09/22/2018-09/28/2018. Auth# [id number]. Fax next clinical review to [phone] on 09/28/2018. PJ NELSON - 09/21/18 08:22:57 09/21/2018 Clinical review faxed to [facility] ([phone]) to request coverage for continued LTACH services. Approval pending. Auth# [id number]. RASHEED NELSONKATHIEris - 09/15/18 11:34:17 09/15/2018 Fax recieved from [facility] with approval for LTACH services 09/15-09/21/2018. Auth# [id number]. Fax next clinical review to [phone] on 09/21/2018. RASHEED NELSONKATHIEris - 09/14/18 08:28:49 09/14/2018 Clinical review faxed to [facility] ([phone]) to request coverage for continued LTACH services. Approval pending. Auth# [id number]. Chuyita Briceno, Clinical Assessment Liaison - 09/09/18 [...] or SNF. She has previously used [facility] and prefers to use them again if needed. The patient owns a shower chair, BSC and w/c. The patient has never needed a dialysis clinic. The patient has not fallen in the past 3 months. PCP- Dr. Ranjeet [facility]- Orthopedic- Dr. Shay Guerrero [facility]- - [facility] SNF- [facility] Natalia The patient does wish to return home upon discharge but understands that rehab/SNF may be needed. All papers were explained and signed. No other issues. CM will continue to monitor. Documentation Status Complete : Yes NELSON PJ - 10/04/2018 10:02 EDT documented in this encounter Plan of Treatment Not on file documented as of this encounter Visit Diagnoses Not on filedocumented in this encounter Care Teams Tattoo Designer Relationship Specialty Start Date End Date Juan José Kendall MD [address] [facility] [address] [place] [address] PCP - General Family Medicine 12/25/22 Juan José Kendall MD [facility] [address] [place] [address] Referring Physician Family Medicine 12/25/22 documented as of this encounter
--- OUTSIDE RECORDS SUMMARY | 2024-03-11 09:15 | XMS_ITS | Encounter Summary ---
Author Organization [employer] Address [address] [place] [address] Care Team Providers Care Fiberglass Boat Finisher Name Role Phone Juan José Kendall MD Primary Care Provider [phone]- [phone] Juan José Kendall MD Unavailable [phone] Encounter Details Date Type Department Care Team (Late st Contact Info) Description 10/05/[address] [facility] [place] [address] ProviderLaurie MD [facility] [place], [place] [address] Social History Tobacco Use Types Packs/Day Years Used Date Smoking Tobacco: Never Assessed Comments Unknown Sex and Gender Information Value Date Recorded Sex Assigned at Not on file Legal Sex Female 2:23 PM CDT Gender Identity Not on file Sexual Orientation Not on file documented as of this encounter Miscellaneous Notes * Cerner Conversion Note - Historical ProviderMD - 10/05/2018 1:08 PM CDT Care Management Assessment/Plan Entered On: 10/05/2018 13:09 EDT Performed On: 10/05/2018 13:08 EDT by PJ NELSON Care Management Note Care Management Note : Follow-up appts scheduled: Dr. Ulloa (ID) 10/19/2018 @ 1315, Dr. Robles (ortho) 10/25/2018 @ 1030. Care Management Note Report : PJ NELSON - 10/05/18 11:30:14 10/05/2018 Call received from [facility], they have received the insurance authorization for admission, milton marinelli to get her tomorrow. Dr. Porter notified, and in agreement. Accepting physician Dr. Ordonez. Call report to [phone]. Fax DC summary to [phone]. Anne Marie transport scheduled for 10/06/2018 @ 1300. PJ NELSON - 10/05/18 08:54:39 10/05/2018 Clinical review faxed to [facility] ([phone]) to request coverage for continued LTACH services. Approval pending. Auth# [id number]. PJ NELSON 10/05/18 08:47:08 Patient/ chose [facility]. Per Ashley, insurance preauth was started, awaiitng response. PJ NELSON 10/04/18 10:04:33 10/04/2018 Bed offer received from [facility]. Family notified,now requesting to reconsider [place]. I have explained that we need an answer for which place the prefer so that we can move forward with placement. states he will call both facilities, and they will make a decision. PJ NELSON 10/03/18 15:02:06 10/03/2018 Spoke with Grand Arianna Acevedo, they do not have a contract with [place]. PJ NELSON 10/03/18 14:57:34 10/03/2018 Call received from Zach Velasquez, they are unable to offer a bed for this patient. Patient and notified. They request a referral be faxed to [facility] (P: [phone] F: [phone]), faxed per their request. Awaiting a call back. PJ NELSON 10/03/18 13:54:20 10/03/2018 Bev Lewis, here to evaluate patient for possible bed placement. PJ NELSON 10/03/18 09:57:17 10/03/2018 Jose clinical liaison Zach Donohue, coming to the unit to eval patient for possible bed placement. Updates faxed per their request. PJ NELSON - 09/29/18 16:38:16 09/29/2018 Per ID, abx therapy to stop 10/05/2018. Patient states she is open to rehab, but prefers it be close to her home in [place]. Referrals faxed to Debbie Patricia (Signature liaison), [place], [place], and [place]. Awaiting a call back. PJ NELSON - 09/28/18 16:26:43 09/28/2018 Fax recieved from [facility] with approval for LTACH services 09/29-10/04. Auth# [id number]. Fax next clinical review to [phone] on 10/05/2018. PJ NELSON - 09/28/18 08:24:24 09/28/2018 Clinical review faxed to [facility] ([phone]) to request coverage for continued LTACH services. Approval pending. Auth# [id number]. PJ NELSON - 09/21/18 15:48:14 09/21/2018 Fax recieved from [facility] with approval for LTACH coverage 09/22/2018-09/28/2018. Auth# [id number]. Fax next clinical review to [phone] on 09/28/2018. PJ NELSON - 09/21/18 08:22:57 09/21/2018 Clinical review faxed to [facility] ([phone]) to request coverage for continued LTACH services. Approval pending. Auth# [id number]. PJ NELSON - 09/15/18 11:34:17 09/15/2018 Fax recieved from [facility] with approval for LTACH services 09/15-09/21/2018. Auth# [id number]. Fax next clinical review to [phone] on 09/21/2018. PJ NELSON - 09/14/18 08:28:49 09/14/2018 Clinical review faxed to [facility] ([phone]) to request coverage for continued LTACH services. Approval pending. Auth# [id number]. Chuyita Briceno, Clinical Assessment Liaison - 09/09/18 [...] unit or SNF. She has [facility] and prefers to use them again if needed. The patient owns a shower chair, BSC and w/c. The patient has never needed a dialysis clinic. The patient has not fallen in the past 3 months. PCP- Dr. Ranjeet [facility]- Orthopedic- Dr. Shay Guerrero Preferences- - [facility] SNF- [facility] Natalia The patient does wish to return home upon discharge but understands that rehab/SNF may be needed. All papers were explained and signed. No other issues. CM will continue to monitor. Documentation Status Complete : Yes PJ NELSON - 10/05/2018 13:08 EDT Electronically signed by Aleks Cox [place] Conversion Land Management Supervisor Cerner at 07/24/2022 3:45 PM CDT documented in this encounter Plan of Treatment Not on file documented as of this encounter Visit Diagnoses Not on filedocumented in this encounter Care Teams Fiberglass Boat Finisher Relationship Specialty Start Date End Date Juan José Kendall MD [address] [facility] [address] [place] [address] PCP - General Family Medicine 12/25/22 Juan José Kendall MD [address] [facility] [address] [place] [address] Referring Physician Family Medicine 12/25/22 documented as of this encounter
--- OUTSIDE RECORDS SUMMARY | 2024-03-11 09:15 | XMS_ITS | Encounter Summary ---
Author Organization [employer] Address [address] [place] [address] Care Team Providers Care Coding Assistant Name Role Phone Juan José Kendall MD Primary Care Provider + [phone] Juan José Kendall MD Unavailable [phone] Encounter Details Date Type Department Care Team (Late st Contact Info) Description 10/05/2018 Transcribed Document [facility] Family Medicine [facility] [place] [address] ProviderLaurie MD [address] [place] [address] Social History Tobacco Use Types Packs/Day Years Used Date Smoking Tobacco: Never Assessed Comments Unknown Sex and Gender Information Value Date Recorded Sex Assigned at Not on file Legal Sex Female 2:23 PM CDT Gender Identity Not on file Sexual Orientation Not on file documented as of this encounter Miscellaneous Notes * Cerner Conversion Note - Historical ProviderMD - 10/05/2018 8:46 AM CDT Care Management Assessment/Plan Entered On: 10/05/2018 8:47 EDT Performed On: 10/05/2018 8:46 EDT by PJ NELSON Care Management Note Care Management Note : Patient/ chose [facility]. Per Ashley, insurance preauth was started, awaiitng response. Care Management Note Report : PJ NELSON - 10/04/18 10:04:33 10/04/2018 Bed offer received from [facility]. Family notified,now requesting to reconsider [place]. I have explained that we need an answer for which place the prefer so that we can move forward with placement. states he will call both facilities, and they will make a decision. PJ NELSON 10/03/18 15:02:06 10/03/2018 Spoke with Grand Arianna Acevedo, they do not have a contract with [place]. PJ NELSON 10/03/18 14:57:34 10/03/2018 Call received from Zach Velasquez, they are unable to offer a bed for this patient. Patient and notified. They request a referral be faxed to [facility] (P: [phone] F: [phone]), faxed per their request. Awaiting a call [...] it be close to her home in [place]. Referrals faxed to Debbie Patricia (Signature liaison), Zach Au, and [facility]. Awaiting a call back. PJ NELSON 09/28/18 16:26:43 09/28/2018 Fax recieved from [facility] with approval for LTACH services 09/29-10/04. Auth# [id number]. Fax next clinical review to [phone] on 10/05/2018. PJ NELSON 09/28/18 08:24:24 09/28/2018 Clinical review faxed to [facility] ([phone]) to request coverage for continued LTACH services. Approval pending. Auth# [id number]. PJ NELSON 09/21/18 15:48:14 09/21/2018 Fax recieved from [facility] with approval for LTACH coverage 09/22/2018-09/28/2018. Auth# [id number]. Fax next clinical review to [phone] on 09/28/2018. RASHEED NELSONRALPH - 09/21/18 08:22:57 09/21/2018 Clinical review faxed to [facility] ([phone]) to request coverage for continued LTACH services. Approval pending. Auth# [id number]. RASHEED NELSONRALPH - 09/15/18 11:34:17 09/15/2018 Fax recieved from [facility] with approval for LTACH services 09/15-09/21/2018. Auth# [id number]. Fax next clinical review to [phone] on 09/21/2018. PJ NELSON - 09/14/18 08:28:49 09/14/2018 Clinical review faxed to [facility] ([phone]) to request coverage for continued LTACH services. Approval pending. Auth# [id number]. Chuyita Briceno, Clinical Assessment Liaison - 09/09/18 [...] unit or SNF. She has previously used [facility] and prefers to use them again if needed. The patient owns a shower chair, BSC and w/c. The patient has never needed a dialysis clinic. The patient has not fallen in the past 3 months. PCP- Dr. Ranjeet [facility]- Orthopedic- Dr. Shay Guerrero [facility]- - [facility] SNF- [facility] Natalia The patient does wish to return home upon discharge but understands that rehab/SNF may be needed. All papers were explained and signed. No other issues. CM will continue to monitor. Documentation Status Complete : Yes PJ NELSON - 10/05/2018 8:46 EDT documented in this encounter Plan of Treatment Not on file documented as of this encounter Visit Diagnoses Not on filedocumented in this encounter Care Teams Coding Assistant Relationship Specialty Start Date End Date Juan José Kendall MD [address] [facility] [address] [place] [address] PCP - General Family Medicine 12/25/22 Juan José Kendall MD [address] [place] [address] Referring Physician Family Medicine 12/25/22 documented as of this encounter
--- OUTSIDE RECORDS SUMMARY | 2024-03-11 09:15 | XMS_ITS | Encounter Summary ---
Author Organization [facility] [employer] Address [address] [place] [address] Care Team Providers Care Cartridge Belt Puncher Name Role Phone Unavailable Primary Care Provider Unavailabl e Encounter Details Date Type Department Care Team (Late st Contact Info) Description 10/05/[address] [facility] Radiology [address] [place] [id number] Provider, [facility] Historical Social History Tobacco Use Types [...] Associated Diagnosis Comments BMP [facility] METABOLIC PANEL [facility]) Routine 10/06/2018 4:46 AM EDT PLATELET COUNT Routine 10/06/2018 4:46 AM EDT ZEKE,REMOVE TUNNELED CVC WO PORT Routine 10/05/2018 11:18 AM EDT PTT ([facility] BKR DATA CONV) Routine 10/05/2018 4:10 AM EDT PT/INR PROTHROMBIN TIME ([facility] BKR DATA CONV) Routine 10/05/2018 4:10 AM EDT documented in this encounter Results * (ABNORMAL) BMP BASIC METABOLIC PANEL ([facility] BKR DATA CONV) (10/06/2018 4:46 AM EDT) Glucose Level 90 74 - 106 mg/dL 10/06/2018 10:17 AM EDT Comment: 5 CUPS and some sugar has become aware of sulfasalazine and sulfapyridine [...] administration of the drug. Blood Urea Nitrogen 12 7 - 22 mg/dL 10/06/2018 10:17 AM EDT Creatinine Level 1.30(H) 0.55 - 1.02 mg/dL 10/06/2018 10:17 AM EDT Sodium Level 143 136 - 146 mmol/L 10/06/2018 10:17 AM EDT Potassium Level 3.6 3.5 - 5.1 mmol/L 10/06/2018 10:17 AM EDT Chloride Level 112 102 - 112 mmol/L 10/06/2018 10:17 AM EDT Carbon Dioxide Level 25 21 - 32 mmol/L 10/06/2018 10:17 AM EDT Anion Gap 10 9 - 20 10/06/2018 10:17 AM EDT Calcium Level 8.7 8.4 - 10.1 mg/dL 10/06/2018 10:17 AM EDT Bun/Creatinine 9.2 8.0 - 20.0 10/06/2018 10:17 AM EDT eGFR NonAfrican 41(L) >=60 mL/min/1. 73m2 10/06/2018 10:18 AM EDT Comment: GFR <60 suggests chronic kidney disease, if found over 3 month period. GFR <15 indicates renal failure. eGFR 50(L) >=60 mL/min/1. 73m2 10/06/2018 10:18 AM EDT Comment: GFR <60 suggests chronic kidney disease, if found over 3 month period. GFR <15 indicates renal failure. Blood 10/06/2018 4:46 AM EDT 10/06/2018 9:49 AM EDT Sle Historical Provider LAB BLOOD ORDERABLES Fi nal Result [facility] [address] [phone] * Platelet count (10/06/2018 4:46 AM EDT) Platelet Count 180 163 - 369 K/uL 10/06/2018 9:50 AM EDT Blood 10/06/2018 4:46 AM EDT 10/06/2018 9:45 AM EDT [facility] Provider LAB BLOOD ORDERABLES Fi nal Result Performing Organization Address [facility] Co de Phone Number [facility] [address] [phone] * ZEKE,REMOVE TUNNELED CVC WO PORT (10/05/2018 11:18 AM EDT) Anatomical Region Laterality Modality X-Ray 10/05/2018 11:1 8 AM EDT Narrative 10/05/2018 6:02 PM EDT REMOVAL OF RIGHT TUNNELED DEEP LINE CATHETER HISTORY: No longer needs antibiotic therapy. ATTENDING PHYSICIAN: Dr. Cabrera. PHYSICIAN LABORER CHEESEMAKING: Flora Calero PA-C. PROCEDURE: After informed consent was obtained, the patient was prepped and draped in the usual sterile fashion over the right anterior chest wall. 1% Lidocaine was utilized for local anesthesia. Utilizing sharp and blunt dissection, the cuff of the catheter was dissected and removed. The sutures were removed. The catheter was withdrawn without complication. Hemostasis was obtained with manual compression over the venotomy site and over the chest wall access site. IMPRESSION: Status post implanted venous catheter removal, without complication. Films reviewed, interpreted, and dictated by Dr. Cabrera Transcribed by Flora Calero PA-C I have personally viewed, interpreted and dictated the examination. I have read and agree with the above final transcribed report. Procedure Note Provider, MD Laurie - 07/21/2022 REMOVAL OF RIGHT TUNNELED DEEP LINE CATHETER HISTORY: No longer needs antibiotic therapy. ATTENDING PHYSICIAN: Dr. Cabrera. PHYSICIAN LABORER CHEESEMAKING: Flora Calero, PA-C. PROCEDURE: After informed consent was obtained, the patient was prepped and draped in the usual sterile fashion over the right anterior chest wall. 1% Lidocaine was utilized for local anesthesia. Utilizing sharp and blunt dissection, the cuff of the catheter was dissected and removed. The sutures were removed. The catheter was withdrawn without complication. Hemostasis was obtained with manual compression over the venotomy site and over the chest wall access site. IMPRESSION: Status post implanted venous catheter removal, without complication. Films reviewed, interpreted, and dictated by Dr. Cabrera Transcribed by Flora Calero PA-C I have personally viewed, interpreted and dictated the examination. I have read and agree with the above final transcribed report. [facility] Historical Provider IMG DIAGNOSTIC IMAGING ORDERABLES Final Result * (ABNORMAL) PTT ([facility] BKR DATA CONV) (10/05/2018 4:10 AM EDT) PTT 32.7(H) 22.0 - 32.0 Second(s) 10/05/2018 11:09 AM EDT Blood 10/05/2018 4:10 AM EDT 10/05/2018 10:10 AM EDT [facility] Provider LAB BLOOD ORDERABLES Fi nal Result [facility] [address] [phone] * PT/INR PROTHROMBIN TIME ([facility] BKR DATA CONV) (10/05/2018 4:10 AM EDT) PT 10.7 9.6 - 12.0 Second(s) 10/05/2018 11:09 AM EDT INR 1.0 0.9 - 1.1 10/05/2018 11:09 AM EDT Comment: DIAGNOSIS ?THERAPEUTIC RANGE a) Primary and secondary prevention of ?2.0-3.0 venous thrombosis b) Active venous thrombosis, pulmonary ?2.0-4.0 embolism and prevention of recurrent venous thrombosis c) Prevention of arterial thromboembolism ? 3.0-4.5 including patients with mechanical heart valves Blood 10/05/2018 4:10 AM EDT 10/05/2018 10:10 AM EDT [facility] Historical Provider LAB BLOOD ORDERABLES Fi nal Result [facility] [address] [phone] documented in this encounter Visit Diagnoses Not on filedocumented in this encounter
--- OUTSIDE RECORDS SUMMARY | 2024-03-11 09:15 | XMS_ITS | Encounter Summary ---
Author Organization [employer] Address [address] [place] [address] Care Team Providers Care Circus Agent Name Role Phone Juan José Kendall MD Primary Care Provider + [phone] Juan José Kendall MD Unavailable [phone] Encounter Details Date Type Department Care Team (Late st Contact Info) Description 10/05/2018 Transcribed Document [facility] Family Medicine [address] [place] [address] ProviderLaurie MD [address] [place] [address] Social History Tobacco Use Types Packs/Day Years Used Date Smoking Tobacco: Never Assessed Comments Unknown Sex and Gender Information Value Date Recorded Sex Assigned at Not on file Legal Sex Female 2:23 PM CDT Gender Identity Not on file Sexual Orientation Not on file documented as of this encounter Miscellaneous Notes * Cerner Conversion Note - Laurie ProviderMD - 10/05/2018 8:56 AM CDT Interdisciplinary Rounds Entered On: 10/05/2018 8:58 EDT Performed On: 10/05/2018 8:56 EDT by Nery Mckee Dietician Interdisciplinary Rounds Interdisciplinary Rounds Participants : Dietitian Rounds Participants Comment : diet: regular + ensure daily + bob BID intakes: avg 57% x 7 LBM: 10/02 Nery Mckee General Manager - 10/05/2018 8:56 EDT documented in this encounter Plan of Treatment Not on file documented as of this encounter Visit Diagnoses Not on filedocumented in this encounter Care Teams Circus Agent Relationship Specialty Start Date End Date Juan José Kendall MD [address] [place] [address] PCP - General Family Medicine 12/25/22 Juan José Kendall MD [address] [place] [facility] [address] [place] [address] Referring Physician Family Medicine 12/25/22 documented as of this encounter
--- OUTSIDE RECORDS SUMMARY | 2024-03-11 09:15 | XMS_ITS | Encounter Summary ---
Author Organization [employer] Address [address] [place] [address] Care Team Providers Care Record Changer Tester Name Role Phone Juan José Kendall MD Primary Care Provider +- [phone] Juan José Kendall MD Unavailable [phone] Encounter Details Date Type Department Care Team (Late st Contact Info) Description 10/05/[address] [facility] Family Medicine [facility] [place] [address] ProviderLaurie MD [address] [place] [address] [id number] Social History Tobacco Use Types Packs/Day Years Used Date Smoking Tobacco: Never Assessed Comments Unknown Sex and Gender Information Value Date Recorded Sex Assigned at Not on file Legal Sex Female 2:23 PM CDT Gender Identity Not on file Sexual Orientation Not on file documented as of this encounter Miscellaneous Notes * Cerner Conversion Note - Historical ProviderMD - 10/05/2018 4:08 PM CDT Care Management Assessment/Plan Entered On: 10/05/2018 16:09 EDT Performed On: 10/05/2018 16:08 EDT by PJ NELSON Care Management Note Care Management Note : 10/05/2018 Fax received from [facility] with approval for 10/05/2018, with anticipated DC date of tomorrwo, 10/06/2018. Auth# [id number]. Care Management Note Report : CHAYITO HCARLES, RN - 10/05/18 13:15:03 Chayito Charles spoke [...] was okay with her going to a shelter facility and following up with Dr. Robles in 3 weeks then he would see her after that. PJ NELSON - 10/05/18 13:09:24 Follow-up appts scheduled: Dr. Ulloa (ID) 10/19/2018 @ 1315, Dr. Robles (ortho) 10/25/2018 @ 1030. PJ NELSON 10/05/18 11:30:14 10/05/2018 Call received from [facility], they have received the insurance authorization for admission, milton marinelli to get her tomorrow. Dr. Porter notified, and in agreement. Accepting physician Dr. Ordonez. Call report to [phone]. Fax DC summary to [phone]. [facility] scheduled for 10/06/2018 @ 1300. PJ NELSON 10/05/18 08:54:39 10/05/2018 Clinical review faxed to [facility] ([phone]) to request coverage for continued LTACH services. Approval pending. Auth# [id number]. PJ NELSON 10/05/18 08:47:08 Patient/ chose [facility]. Per [facility], insurance preauth was started, awaiitng response. PJ NELSON 10/04/18 10:04:33 10/04/2018 Bed offer received from [facility]. Family notified,now requesting to reconsider [place]. I have explained that we need an answer for which place the prefer so that we can move forward with placement. states he will call both facilities, and they will make a decision. PJ NELSON 10/03/18 15:02:06 10/03/2018 Spoke with [facility], they do not have a contract with [place]. PJ NELSON - 10/03/18 14:57:34 10/03/2018 Call received from [facility], they are unable to offer a bed for this patient. Patient and notified. They request a referral be faxed to [facility] (P: [phone] F: [phone]), faxed per their request. Awaiting a call [...] it be close to her home in [place]. Referrals faxed to Debbie Patricia (Signature liaison), [facility], and Ron. Awaiting a call back. PJ NELSON - 09/28/18 16:26:43 09/28/2018 Fax recieved from [facility] with approval for LTACH services 09/29-10/04. Auth# [id number]. Fax next clinical review to [phone] on 10/05/2018. PJ NELSON 09/28/18 08:24:24 09/28/2018 Clinical review faxed to [facility] ([phone]) to request coverage for continued LTACH services. Approval pending. Auth# [id number]. PJ NELSON 09/21/18 15:48:14 09/21/2018 Fax recieved from [facility] with approval for LTACH coverage 09/22/2018-09/28/2018. Auth# [id number]. Fax next clinical review to [phone] on 09/28/2018. RASHEED NELSONRALPH - 09/21/18 08:22:57 09/21/2018 Clinical review faxed to [facility] ([phone]) to request coverage for continued LTACH services. Approval pending. Auth# [id number]. LESLIE PJ - 09/15/18 11:34:17 09/15/2018 Fax recieved from [facility] with approval for LTACH services 09/15-09/21/2018. Auth# [id number]. Fax next clinical review to [phone] on 09/21/2018. RASHEED NELSONRALPH - 09/14/18 08:28:49 09/14/2018 Clinical review faxed to [facility] ([phone]) to request coverage for continued LTACH services. Approval pending. Auth# [id number]. Chuyita Briceno, Clinical Assessment Liaison - 09/09/18 [...] unit or SNF. She has previously used [facility] and prefers to use them again if needed. The patient owns a shower chair, BSC and w/c. The patient has never needed a dialysis clinic. The patient has not fallen in the past 3 months. PCP- Dr. Ranjeet [facility]- Orthopedic- Dr. Shay Guerrero [facility]- [facility] Natalia The patient does wish to return home upon discharge but understands that rehab/SNF may be needed. All papers were explained and signed. No other issues. CM will continue to monitor. Documentation Status Complete : Yes PJ NELSON - 10/05/2018 16:08 EDT documented in this encounter Plan of Treatment Not on file documented as of this encounter Visit Diagnoses Not on filedocumented in this encounter Care Teams Record Changer Tester Relationship Specialty Start Date End Date Juan José Kendall MD [address] [facility] [address] [place] [address] PCP - General Family Medicine 12/25/22 Juan José Kendall MD [facility] [address] [place] [address] Referring Physician Family Medicine 12/25/22 documented as of this encounter
--- OUTSIDE RECORDS SUMMARY | 2024-03-11 09:15 | XMS_ITS | Encounter Summary ---
Author Organization [employer] Address [address] [facility] [place] [address] Care Team Providers Care Sash Repairer Name Role Phone Juan José Kendall MD Primary Care Provider +- [phone] Juan José Kendall MD Unavailable [phone] Encounter Details Date Type Department Care Team (Late st Contact Info) Description 10/05/2018 Transcribed Document [facility] Family [place] [facility] [place] [address] ProviderLaurie MD [address] [place] [address] [id number] Social History Tobacco Use Types Packs/Day Years Used Date Smoking Tobacco: Never Assessed Comments Unknown Sex and Gender Information Value Date Recorded Sex Assigned at Not on file Legal Sex Female 2:23 PM CDT Gender Identity Not on file Sexual Orientation Not on file documented as of this encounter Miscellaneous Notes * Cerner Conversion Note - Laurie ProviderMD - 10/05/2018 3:00 PM CDT Pain Assessment Entered On: 10/05/2018 17:06 EDT Performed On: 10/05/2018 15:52 EDT by Lisa Haile RN Intervention Information: acetaminophen Performed by Lisa Haile RN on 10/05/2018 14:52:00 EDT acetaminophen,500mg Oral Pain Assessment Pain Scale Goal : 3 Pain Scale Used : 0-10 Scale Pain Improved by Intervention : Yes Lisa Haile RN - 10/05/2018 17:05 EDT Pain Scale Intensity : 0 Lisa Haile RN - 10/05/2018 17:05 EDT Image 4 - Images currently included in the form version of this document have not been included in the text rendition version of the form. documented in this encounter Plan of Treatment Not on file documented as of this encounter Visit Diagnoses Not on filedocumented in this encounter Care Teams Sash Repairer Relationship Specialty Start Date End Date Juan José Kendall MD [address] [facility] [address] [place] [id number] PCP - General Family Medicine 12/25/22 Juan José Kendall MD [facility] [facility] [address] [place] [phone] Referring Physician Family Medicine 12/25/22 documented as of this encounter
--- OUTSIDE RECORDS SUMMARY | 2024-03-11 09:15 | XMS_ITS | Encounter Summary ---
Author Organization [employer] Address [address] [place] [address] Care Team Providers Care Director Of Design Name Role Phone Juan José Kendall MD Primary Care Provider + [phone] Juan José Kendall MD Unavailable [phone] Encounter Details Date Type Department Care Team (Late st Contact Info) Description 10/05/[address] [facility] Family Medicine [facility] [place] [address] ProviderLaurie MD [address] [place] [address] Social History Tobacco Use Types Packs/Day Years Used Date Smoking Tobacco: Never Assessed Comments Unknown Sex and Gender Information Value Date Recorded Sex Assigned at Not on file Legal Sex Female 2:23 PM CDT Gender Identity Not on file Sexual Orientation Not on file documented as of this encounter Miscellaneous Notes * Cerner Conversion Note - Historical ProviderMD - 10/05/2018 2:49 PM CDT Attempt to Treat, PT Entered On: 10/05/2018 14:49 EDT Performed On: 10/05/2018 14:49 EDT by NATALEE DALEY, PT Attempt to Treat Unable to Treat Due To : Patient Unavailable Inability to Treat Comment : Pt off floor to get tunneled catheter removed. NATALEE DALEY, PT - 10/05/2018 14:49 EDT documented in this encounter Plan of Treatment Not on file documented as of this encounter Visit Diagnoses Not on filedocumented in this encounter Care Teams Director Of Design Relationship Specialty Start Date End Date Juan José Kendall MD [address] [place] [id number] PCP - General Family Medicine 12/25/22 Juan José Kendall MD [address] [place] [phone] Referring Physician Family Medicine 12/25/22 documented as of this encounter
--- OUTSIDE RECORDS SUMMARY | 2024-03-11 09:15 | XMS_ITS | Encounter Summary ---
Author Organization [employer] Address [address] [place] [address] Care Team Providers Care Steel Roller Name Role Phone Juan José Kendall MD Primary Care Provider +- [phone] Juan José Kendall MD Unavailable [phone] Encounter Details Date Type Department Care Team (Late st Contact Info) Description 10/06/2018 Transcribed Document [facility] Family [place] [address] ProviderLaurie MD [address] [place] [id number] Social History Tobacco Use Types Packs/Day Years Used Date Smoking Tobacco: Never Assessed Comments Unknown Sex and Gender Information Value Date Recorded Sex Assigned at Not on file Legal Sex Female 2:23 PM CDT Gender Identity Not on file Sexual Orientation Not on file documented as of this encounter Miscellaneous Notes * Cerner Conversion Note - Historical ProviderMD - 10/06/2018 11:36 AM CDT CareSet Assessment Discharge, [facility] Entered On: 10/06/2018 12:12 EDT Performed On: 10/06/2018 11:36 EDT by Lisa Haile RN CareSet Discharge Assessment Persistent Veg State/No Consciousness : No Expression of Ideas and Wants : Expresses complex messages without difficulty and with clear easy to understand speech Understanding of Verbal Content : Understands Ac Change in Mental Status from Baseline : No ABN Behavior Fluctuates During the Day : No Recommend Continued Therapy at Discharge : No Disorganized or Incoherent Thinking : No Level of Consciousness is Alert (Normal) : Yes LOC Vigilant, Lethargic, Stupor or Coma : No Bladder Continence : Stress incontinence only Eating Ability : Independent Oral Hygiene : Setup or clean-up assistance Toileting Hygiene : Substantial/Maximal assistance Ability to Wash Upper Body : Partial/Moderate assistance Roll Left and Right : Supervision or touching assistance Ability to Transfer from Sit to Lying : Supervision or touching assistance Able Trans from Lying to Sit/Side of Bed : Setup or clean-up assistance Ability to Transfer from Sit to Stand : Substantial/Maximal assistance Able to Transfer from Chair/Bed to Chair : Substantial/Maximal assistance Ability to Toilet Transfer : Substantial/Maximal assistance Able to Walk : No Ability to Wheel 50 feet with Two Turns : Not applicable Uses a Wheelchair/Scooter : Yes Ability to Wheel 150 Feet with Two Turns : Not applicable Wheelchair/Scooter used to Wheel 50 Feet : Manual Wheelchair/Scooter used to Wheel 150 Ft : Lisa Rees RN - 10/06/2018 12:09 EDT Electronically signed by Aleks [facility] Conversion Student Advisor Cerner at 07/24/2022 3:42 PM CDT documented in this encounter Plan of Treatment Not on file documented as of this encounter Visit Diagnoses Not on filedocumented in this encounter Care Teams Steel Roller Relationship Specialty Start Date End Date Juan José Kendall MD [address] [facility] [address] [place] [phone] PCP - General Family Medicine 12/25/22 Juan José Kendall MD [address] [facility] [address] [place] [phone] Referring Physician Family Medicine 12/25/22 documented as of this encounter
--- OUTSIDE RECORDS SUMMARY | 2024-03-11 09:15 | XMS_ITS | Encounter Summary ---
Author Organization [employer] Address [address] [place] [address] Care Team Providers Care Dry Mop Maker Name Role Phone Juan José Kendall MD Primary Care Provider +- [phone] Juan José Kendall MD Unavailable [phone] Encounter Details Date Type Department Care Team (Late st Contact Info) Description 10/03/2018 Transcribed Document [facility] Family Medicine [facility] [place] [address] ProviderLaurie MD [address] [place] [address] Social History Tobacco Use Types Packs/Day Years Used Date Smoking Tobacco: Never Assessed Comments Unknown Sex and Gender Information Value Date Recorded Sex Assigned at Not on file Legal Sex Female 2:23 PM CDT Gender Identity Not on file Sexual Orientation Not on file documented as of this encounter Miscellaneous Notes * Cerner Conversion Note - Laurie ProviderMD - 10/03/2018 11:42 AM CDT Patient: TRUDI BLAIR Age: 63 years Sex: Female : 1955 Associated Diagnoses: None Author: BETHANY MO RPh Consult: vancomycin Consulting physician: Dr. 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 Pt ruptured L knee tendon 06/27/18, now s/p L patellar tendon repair and subsequent prosthesis explantation and spacer 08/31/18. Infected L leg wound. MRSA bacteremia per ID note. Also noted to have previous vanc-sensitive Enterococcus UTI/septicemia. Goal vancomycin trough level: 12-18 mcg/mL Age: 63 yo F ABW: 139.5 kg DBW: 91.2 kg Labs: OCT 03 04:10 145 112 14 / 93 3.6 27 H 1.30 \ OCT 03 04:10 \ L 8.5 / 5.9 184 / L 26.6 \ Allergies: biaxin I/O: 340 / x7 voids Estimated CrCl: 65-70 mL/min Vitals: Vitals Signs (last 24 hrs) Last Charted Minimum Maximum Temp 97.9 (OCT 03 07:45) 97.9 (OCT 03:45) 98 (OCT 02 15:00) Apical HR 81 (OCT 03 09:55) 81 (OCT 03 09:55) 81 (OCT 03 09:55) Mon HR 81 (OCT 03:45) 72 (OCT 02 15:00) 89 (OCT 02 23:00) Resp Rate 16 (OCT 03:45) 16 (OCT 02 19:00) 18 (OCT 02 15:00) SBP H 166 (OCT 03 09:55) H 146 (OCT 02 19:00) H 166 (OCT 03 07:45) DBP 81 (OCT 03 09:55) 67 (OCT 02 23:00) 81 (OCT 03 07:45) MAP 99 (OCT 03:45) 96 (OCT 02 15:00) 99 (OCT 03:45) SpO2 99 (OCT 03 07:45) 98 (OCT 02 19:00) 99 (OCT 02 23:00) Cultures: 08/10 blood: MRSA 08/10 urine: Enterococcus 08/19 blood: Enterococcus (vanc S) 08/19 L leg wound: S. epi, MRSA Current antibiotics: Vancomycin 500mg IV q24h (start date 09/14, 10/03 = day 20) Previous antibiotics: Ceftriaxone (08/30-09/02) Ertapenem (08/30-08/31) Daptmycin (08/30-09/14) Vancomycin dosing history: Vancomycin 1250mg IV q24h --> 09/17 tr = 19.3 mcg/mL drawn on time Vancomycin 1000mg IV q24h --> 09/21 tr = 22.7 mcg/mL drawn 2h late, 09/22 random = 19.6 mcg/mL drawn 12.5h after previous level, k = 0.012 h-1 Vancomycin 1000mg IV x1 09/22 --> 09/23 random = 19.8 mcg/mL drawn 15 hours after previous dose, 09/24 random = 14.3 mcg/mL drawn 24h after previous level Vancomycin 500mg IV q24h --> 09/26 tr = 14.6 mcg/mL drawn on time Vancomycin 500mg IV q24h --> 09/30 tr = 12.2 mcg/mL drawn on time A/P: 1. Vancomycin trough level therapeutic 09/30. Continue vancomycin 500mg IV q24h. No plans to recheck trough level unless duration extended beyond 10/05. 2. Monitor renal function closely. Some ongoing PILY attributed to sepsis from admission. BMP at least twice weekly on vancomycin. SCr stable at 1.3 today. 3. Abx planned until 10/05 per ID. 4. Pharmacy will continue to follow. Thank you for the consultation, Bethany Mo, SriniD documented in this encounter Plan of Treatment Not on file documented as of this encounter Visit Diagnoses Not on filedocumented in this encounter Care Teams Dry Mop Maker Relationship Specialty Start Date End Date Juan José Kendall MD [address] [facility] [address] [place] [phone] PCP - General Family Medicine 12/25/22 Juan José Kendall MD [address] [facility] [address] [place] [phone] Referring Physician Family Medicine 12/25/22 documented as of this encounter
--- OUTSIDE RECORDS SUMMARY | 2024-03-11 09:15 | XMS_ITS | Encounter Summary ---
Author Organization [employer] Address [address] [place] [address] Care Team Providers Care Enterprise Systems Engineer Name Role Phone Juan José Kendall MD Primary Care Provider +- [phone] Juan José Kendall MD Unavailable [phone] Encounter Details Date Type Department Care Team (Late st Contact Info) Description 10/04/2018 Transcribed Document [facility] [place] [facility] [place] [address] ProviderLaurie MD [address] [place] [address] [id number] Social History Tobacco Use Types Packs/Day Years Used Date Smoking Tobacco: Never Assessed Comments Unknown Sex and Gender Information Value Date Recorded Sex Assigned at Not on file Legal Sex Female 2:23 PM CDT Gender Identity Not on file Sexual Orientation Not on file documented as of this encounter Miscellaneous Notes * Cerner Conversion Note - Laurie ProviderMD - 10/04/2018 3:00 PM CDT Pain Assessment Entered On: 10/04/2018 20:01 EDT Performed On: 10/04/2018 16:07 EDT by Emily Fox RN Intervention Information: acetaminophen Performed by Emily Fox RN on 10/04/2018 15:07:00 EDT acetaminophen,500mg Oral Pain Assessment Pain Assessment : Follow-up assessment Pain Scale Goal : 3 Pain Scale Used : 0-10 Scale Emily Fox RN - 10/04/2018 20:00 EDT Pain Scale Intensity : 3 Emily Fox RN - 10/04/2018 20:00 EDT Image 4 - Images currently included in the form version of this document have not been included in the text rendition version of the form. documented in this encounter Plan of Treatment Not on file documented as of this encounter Visit Diagnoses Not on filedocumented in this encounter Care Teams Enterprise Systems Engineer Relationship Specialty Start Date End Date Juan José Kendall MD [address] [facility] [address] [place] [phone] PCP - General Family Medicine 12/25/22 Juan José Kendall MD [address] [facility] [address] [place] [phone] Referring Physician Family Medicine 12/25/22 documented as of this encounter
--- OUTSIDE RECORDS SUMMARY | 2024-03-11 09:15 | XMS_ITS | Encounter Summary ---
Author Organization [employer] Address [address] [place] [address] Care Team Providers Care Ctc Operator Name Role Phone Juan José Kendall MD Primary Care Provider + [phone] Juan José Kendall MD Unavailable [phone] Encounter Details Date Type Department Care Team (Late st Contact Info) Description 10/05/2018 Transcribed Document [facility] [place] [facility] [place] [address] ProviderLaurie MD [address] [place] [address] Social History Tobacco Use Types Packs/Day Years Used Date Smoking Tobacco: Never Assessed Comments Unknown Sex and Gender Information Value Date Recorded Sex Assigned at Not on file Legal Sex Female 2:23 PM CDT Gender Identity Not on file Sexual Orientation Not on file documented as of this encounter Miscellaneous Notes * Cerner Conversion Note - Historical ProviderMD - 10/05/2018 5:00 AM CDT Chart Check - Review Order Profile Entered On: 10/05/2018 5:27 EDT Performed On: 10/05/2018 5:00 EDT by Anna Lowe, Rn Chart Check Powerplans Initiated/Discontinued as Appropriate : Yes All Active Orders Reviewed : Yes Anna Lowe Rn - 10/05/2018 5:27 EDT documented in this encounter Plan of Treatment Not on file documented as of this encounter Visit Diagnoses Not on filedocumented in this encounter Care Teams Ctc Operator Relationship Specialty Start Date End Date Juan José Kendall MD [address] [place] [phone] PCP - General Family Medicine 12/25/22 Juan José Kendall MD [address] [place] [phone] Referring Physician Family Medicine 12/25/22 documented as of this encounter
--- OUTSIDE RECORDS SUMMARY | 2024-03-11 09:15 | XMS_ITS | Encounter Summary ---
Author Organization [employer] Address [address] [facility] [place] [address] Care Team Providers Care Hide And Skin Processing Worker Name Role Phone Juan José Kendall MD Primary Care Provider +- [phone] Juan José Kendall MD Unavailable [phone] Encounter Details Date Type Department Care Team (Late st Contact Info) Description 10/04/2018 Transcribed Document [facility] [place] [facility] [place] [address] ProviderLaurie MD [address] [place] [address] Social History Tobacco Use Types Packs/Day Years Used Date Smoking Tobacco: Never Assessed Comments Unknown Sex and Gender Information Value Date Recorded Sex Assigned at Not on file Legal Sex Female 2:23 PM CDT Gender Identity Not on file Sexual Orientation Not on file documented as of this encounter Miscellaneous Notes * Cerner Conversion Note - Laurie ProviderMD - 10/04/2018 9:00 PM CDT Pain Assessment Entered On: 10/04/2018 23:57 EDT Performed On: 10/04/2018 22:42 EDT by Anna Lowe, Rn Intervention Information: acetaminophen Performed by Anna Lowe Rn on 10/04/2018 21:42:00 EDT acetaminophen,500mg Oral Pain Assessment Pain Assessment : Follow-up assessment Pain Scale Goal : 3 Pain Scale Used : 0-10 Scale Anna Lowe Rn - 10/04/2018 23:57 EDT Pain Scale Intensity : 0 Anna Lowe Rn - 10/04/2018 23:57 EDT Image 4 - Images currently included in the form version of this document have not been included in the text rendition version of the form. documented in this encounter Plan of Treatment Not on file documented as of this encounter Visit Diagnoses Not on filedocumented in this encounter Care Teams Hide And Skin Processing Worker Relationship Specialty Start Date End Date Juan José Kendall MD [address] [facility] [address] [place] [phone] PCP - General Family Medicine 12/25/22 Juan José Kendall MD [address] [facility] [address] [place] [phone] Referring Physician Family Medicine 12/25/22 documented as of this encounter
--- OUTSIDE RECORDS SUMMARY | 2024-03-11 09:15 | XMS_ITS | Encounter Summary ---
Author Organization [employer] Address [address] [place] [address] Care Team Providers Care Health Outreach Worker Name Role Phone Juan José Kendall MD Primary Care Provider +- [phone] Juan José Kendall MD Unavailable [phone] Encounter Details Date Type Department Care Team (Late st Contact Info) Description 10/05/2018 Transcribed Document [facility] Family [place] [facility] [place] [address] ProviderLaurie MD [address] [place] [address] Social History Tobacco Use Types Packs/Day Years Used Date Smoking Tobacco: Never Assessed Comments Unknown Sex and Gender Information Value Date Recorded Sex Assigned at Not on file Legal Sex Female 2:23 PM CDT Gender Identity Not on file Sexual Orientation Not on file documented as of this encounter Miscellaneous Notes * Cerner Conversion Note - Historical ProviderMD - 10/05/2018 2:19 PM CDT Patient: TRUDI BLAIR Age: 63 [...] ABW: 139.5 kg DBW: 91.2 kg Labs: No qualifying data available Allergies: biaxin I/O: 580 / x7 voids Estimated CrCl: 65-70 mL/min Vitals: Vitals Signs (last 24 hrs) Last Charted Minimum Maximum Temp 98.2 (OCT 05 07:53) 98.2 (OCT 05 07:53) 98.2 (OCT 04:35) Apical HR 77 (OCT 05 10:50) 77 (OCT 05 10:50) 89 (OCT 05 09:24) Mon HR 78 (OCT 05 07:53) 71 (OCT 04 15:35) 80 (OCT 04 23:00) Resp Rate 18 (OCT 05 10:50) 16 (OCT 04:35) 20 (OCT 04:00) SBP H 145 (OCT 05 10:50) H 145 (OCT 05 10:50) H 151 (OCT 04 19:00) DBP 75 (OCT 05 10:50) 63 (OCT 04 23:00) 75 (OCT 05 10:50) MAP 81 (OCT 04:00) 81 (OCT 04 23:00) 85 (OCT 04:35) SpO2 97 (OCT 05 10:50) 95 (OCT 04 23:00) 98 (OCT 04:35) Cultures: 08/10 blood: MRSA 08/10 urine: Enterococcus 08/19 blood: Enterococcus (vanc S) 08/19 L leg wound: S. epi, MRSA Current antibiotics: Vancomycin 500mg IV q24h (start date 09/14, 10/05 = day 22) Previous antibiotics: Ceftriaxone (08/30-09/02) Ertapenem (08/30-08/31) Daptmycin [...] 12.2 mcg/mL drawn on time A/P: 1. Last dose of vancomycin given this am. Groshong removed today. Pt to discharge tomorrow off abx. No further need for therapeutic drug monitoring. Pharmacy will sign off, please re-consult if needed. Thank you for the consultation, Bethany Mo PharmD Electronically signed by Aleks [facility] Conversion Community Services Coordinator Cerner at 07/24/2022 3:51 PM CDT documented in this encounter Plan of Treatment Not on file documented as of this encounter Visit Diagnoses Not on filedocumented in this encounter Care Teams Health Outreach Worker Relationship Specialty Start Date End Date Juan José Kendall MD [address] [facility] [address] [place] [id number] PCP - General Family Medicine 12/25/22 Juan José Kendall MD [address] [facility] [address] [place] [address] Referring Physician Family Medicine 12/25/22 documented as of this encounter
--- OUTSIDE RECORDS SUMMARY | 2024-03-11 09:15 | XMS_ITS | Encounter Summary ---
Author Organization [employer] Address [address] [place] [address] Care Team Providers Care Maintenance Mechanic Name Role Phone Juan José Kendall MD Primary Care Provider +- [phone] Juan José Kendall MD Unavailable [phone] Encounter Details Date Type Department Care Team (Late st Contact Info) Description 10/05/2018 Transcribed Document [facility] [facility] [place] [address] ProviderLaurie MD [address] [place] [address] Social History Tobacco Use Types Packs/Day Years Used Date Smoking Tobacco: Never Assessed Comments Unknown Sex and Gender Information Value Date Recorded Sex Assigned at Not on file Legal Sex Female 2:23 PM CDT Gender Identity Not on file Sexual Orientation Not on file documented as of this encounter Miscellaneous Notes * Cerner Conversion Note - Laurie ProviderMD - 10/05/2018 7:12 AM CDT Patient: TRUDI BLAIR Age: 63 years Sex: Female : 1955 Associated Diagnoses: None Author: KWAME TAVARES MD-INF ID Progress Note Antibiotic therapy: Vancomycin until 10/05 CC: left leg pain Subjective: 08/30/18: Trudi Blair is a 63 yo woman with pmh of GERD, HTN, HLD, and left TKA in 2017 who was doing well until she had a left patellar tendon rupture in 06/2018 and was taken to the OR by Dr. Guerrero for tendon repair. She was more recently admitted to [facility] x2 earlier this month on 08/16 and then subsequently on 08/19/18 with confusion and noted to have MRSA septicemia. Additionally had an enterobacter UTI. She was additionally noted to be anemia and was transfused 2u PRBC. She was noted to have a left prosthetic knee infection and left leg wound. She was started on IV antibiotics there although records are somewhat limited so not sure which ones. Also was getting wound care. She was transferred to [facility] today for a higher level of care. Since arrival, the patient has remained afebrile, tachy up to 104 but otherwise HD stable. Labs have been significant for a Cr elevated to 2.43, lactic acid 1.5, esr 10, crp 2.3, WBC 6.3, d-dimer 2,200, and procal <0.05. Blood culture x2 obtained. Patient was initially started on iv vancomycin and ceftriaxone by primary team. 08/31/18: The patient was doing ok today. no fevers. knee pain about the same. cast removed. PICC line with purulent drainage. 09/01/18: patient underwent WANDA yesterday. no plans for knee revision in the future as she isnt a candidate per Dr. Marie. PICC line removed yesterday evening. plans for groshong cath placement today. no fevers overnight. renal function improving. no diarrhea, nausea, or new rash. 09/02/18: The patient was doing well today. no fevers overnight. no n/v, diarrhea, or new rash. tolerating daptomycin and ceftriaxone well. Groshong catheter was placed yesterday 09/05/18: no fevers. wound vac remains in place. tolerating abx well without any SOA or myalgias. no n/v, diarrhea, or new rash. no redness or tenderness at groshong cath site. 09/06/18: Patient remains afebrile. Wound VAC remains in place but plan is for wound VAC change today. She is tolerating the antibiotics without any adverse side effects. No diarrhea, nausea, vomiting, or new rash. 09/07/18: Patient remains afebrile. Tolerating daptomycin well. Status post wound VAC change yesterday. Pain under control. Having 1-2 watery bowel movements overnight. No nausea or vomiting. 09/12/18: no fevers. tolerating abx without ADRs. Wound vac remains in place. diarrhea has improved. no n/v. no new rash. had 5 episodes of watery diarrhea yesterday. improved with imodium. having some mild nausea 09/14/18: No fevers. Having some nausea with daptomycin doses but somewhat controlled on antiemetics. Wound VAC remains in place. No further diarrhea. 09/15/18: No fevers. Nausea has improved since switching off the daptomycin to vancomycin. No Diarrhea. No new rash. Wound VAC remains in place. 09/19/18: No fevers recently. denies any nausea or diarrhea. Doing well since I last saw her. No new rashes. Wound VAC is in place and has not been changed since I last saw her. 09/21/18: Not having any fevers. Having more nausea than when I last saw her but she is unclear if this is antibiotic associated as is not necessarily around the time of antibiotic delivery. Having some mild mid abdominal discomfort. No diarrhea. Wound VAC was changed since I last saw her. No new rashes 09/23/18: No fevers recently. Nausea has improved today but did have some significant nausea yesterday. minimal epigastric abdominal discomfort but not severe. No diarrhea. Wound VAC remains in place and doing okay.no new rashes 09/26/18: No fevers. Nausea improved. Denies any diarrhea. Wound VAC has been removed and wound is intact with no drainage or redness. No new rashes 09/28/18: The patient remains afebrile. No nausea since I last saw her. vancomycin trough as improved to 14.6 and Cr remains stable at 1.2. denies any diarrhea. no left leg pain. 09/30/18: Patient is doing well. No nausea, vomiting, or diarrhea. She is tolerating the antibiotics without any adverse side effects. [place] removed yesterday at her incision site remains intact without any drainage or redness. She is overall doing very well. No fevers. 10/01/18: She has no new complaints today. She denies nausea, vomiting, and diarrhea. She remains afebrile. She is scheduled to complete her intravenous vancomycin on 10/05. She denies increased left knee pain. She states that Dr. Balthrop would like her to see an service desk specialist at after her discharge from here. She will require subsequent left knee reconstructive surgery. 10/02/18: She has some nausea today. She has remained afebrile. She will complete her intravenous vancomycin on 10/05. 10/03/18: Afebrile, denies sob, n/v/d, rashes. some knee pain. 10/04/18: She has been afebrile overnight. She has no new complaints today. She denies nausea and vomiting. She has had no knee wound drainage. 10/05/18: Vancomycin scheduled for 0900 today. She denies fever, chills, sweats, diarrhea. She is anxious to go home. ROS: As above Past Medical History: Arthritis Back pain GERD HLD NUVIA HTN Stress incontinence Past Surgical History: Left TKA, 2017 left patellar tendon repair, 06/2018 lumbar fusion hysterectomy right TKA right patellar tendon repair Family History: CAD HTN Cancer Social History: . lives in [place]. No tobacco, ETOH, or illicit drug use. Social & Psychosocial Habits Alcohol 06/23/2018 Alcohol Use History, Social Habits No Substance Abuse 06/23/2018 Recreational Drug Use History No Tobacco 06/23/2018 Smoking Status Never (less than 100 in l Smokeless Tobacco Status Never Objective: Vitals Signs (last 24 hrs) Last Charted Minimum Maximum Temp 98.2 (OCT 04 23:00) 98.2 (OCT 04 23:00) 98.2 (OCT 04:35) Apical HR 85 (OCT 04 09:43) 85 (OCT 04 09:43) 85 (OCT 04:43) Mon HR 80 (OCT 04 23:00) 71 (OCT 04:35) 80 (OCT 04:00) Resp Rate 20 (OCT 04 23:00) 16 (OCT 04:35) 20 (OCT 04:00) SBP H 148 (OCT 04 23:00) H 147 (OCT 04:35) H 151 (OCT 04:) DBP 63 (OCT 04 23:00) 63 (OCT 04 23:00) 71 (OCT 04:00) MAP 81 (OCT 04 23:00) 81 (OCT 04 23:00) 85 (NILDA 02 15:35) SpO2 95 (OCT 04 23:00) 95 (OCT 04 23:00) 98 (OCT 04 15:35) PE: General: patient is alert and in no acute distress. morbidly obese HEENT: sclera white without conjunctival injection. No erythema, exudate or ulceration. No labial ulcers Lungs: Clear to auscultation bilaterally without wheezes, rales, or rhonchi. Normal respiratory effort Cardiovascular: normal S1/S2; RRR, no m/r/g. Abdomen: soft, mild epigastric abdominal discomfort, non-distended, positive bowel sounds throughout. Lower extremity: The left knee incision is intact with no erythema or drainage.- brace in place Neuro: Alert and oriented x3. No focal deficits. Skin: Without rash; c/d/i groshong cath site over right chest is without erythema LABS: Labs (Last four charted values) WBC 5.9 (OCT 03) 6.2 (SEP 29) 5.8 (SEP 26) 5.7 (SEP 19) HB L 8.5 (OCT 03) L 8.7 (SEP 29) L 8.3 (SEP 26) L 8.2 (SEP 19) HCT L 26.6 (OCT 03) L 26.8 (SEP 29) L 26.3 (SEP 26) L 26.3 (SEP 19) Plt 189 (OCT 04) 184 (OCT 03) 191 (OCT 02) 182 (SEP 30) Na 145 (OCT 04) 145 (OCT 03) 144 (OCT 02) 143 (OCT 01) K 3.5 (OCT 04) 3.6 (OCT 03) L 3.4 (OCT 02) 3.5 (OCT 01) Cl 111 (OCT 04) 112 (OCT 03) 112 (OCT 02) H 113 (OCT 01) CO2 26 (OCT 04) 27 (OCT 03) 26 (OCT 02) 26 (OCT 01) BUN 14 (OCT 04) 14 (OCT 03) 16 (OCT 02) 16 (OCT 01) Cr H 1.30 (OCT 04) H 1.30 (OCT 03) H 1.30 (OCT 02) H 1.20 (OCT 01) Glu R 86 (OCT 04) 93 (OCT 03) 95 (OCT 02) 93 (OCT 01) Ca 8.8 (OCT 04) 8.6 (OCT 03) 8.8 (OCT 02) 8.8 (OCT 01) PT 10.7 (OCT 05) INR 1.0 (OCT 05) PTT H 32.7 (OCT 05) AST 12 (OCT 03) 12 (SEP 29) 14 (SEP 26) 11 (SEP 19) ALT L 9 (OCT 03) L 7 (SEP 29) L 7 (SEP 26) L 8 (SEP 19) ALK P 112 (OCT 03) 115 (SEP 29) 119 (SEP 26) 119 (SEP 19) T Bili 0.3 (OCT 03) 0.4 (SEP 29) 0.5 (SEP 26) 0.6 (SEP 19) PTN L 5.5 (OCT 03) L 5.5 (SEP 29) L 5.3 (SEP 26) L 5.0 (SEP 19) ALB L 2.3 (OCT 03) L 2.3 (SEP 29) L 2.2 (SEP 26) L 2.2 (SEP 19) Lipase 191 (SEP 23) MICRO: 08/31: tissue no growth 08/31: blood cx NG 08/31: cath tip NG IMAGING: No Radiology Results Found Assessment: 1. MRSA bacteremia 2. 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 Enterococcal UTI/bacteremia 4. Left leg DVT 5. Acute renal failure/ATN?CKD Recommendations: 1. Discontinue vancomycin IV after dose this am 2. Remove the Groshong catheter on 10/05/18 3. Follow up with Dr. Inder Tavares 10/19 at 1:15-- appt made We will see her again Wednesday documented in this encounter Plan of Treatment Not on file documented as of this encounter Visit Diagnoses Not on filedocumented in this encounter Care Teams Maintenance Mechanic Relationship Specialty Start Date End Date Juan José Kendall MD [address] [facility] [address] [place] [id number] PCP - General Family Medicine 12/25/22 Juan José Kendall MD [address] [facility] [address] [place] [phone] Referring Physician Family Medicine 12/25/22 documented as of this encounter
--- OUTSIDE RECORDS SUMMARY | 2024-03-11 09:15 | XMS_ITS | Encounter Summary ---
Author Organization [employer] Address [address] [place] [address] Care Team Providers Care Car Servicer Name Role Phone Juan José Kendall MD Primary Care Provider +- [phone] Juan José Kendall MD Unavailable [phone] Encounter Details Date Type Department Care Team (Late st Contact Info) Description 10/03/2018 Transcribed Document [facility] [place] [facility] [place] [address] ProviderLaurie MD [address] [place] [address] [id number] Social History Tobacco Use Types Packs/Day Years Used Date Smoking Tobacco: Never Assessed Comments Unknown Sex and Gender Information Value Date Recorded Sex Assigned at Not on file Legal Sex Female 2:23 PM CDT Gender Identity Not on file Sexual Orientation Not on file documented as of this encounter Miscellaneous Notes * Cerner Conversion Note - Laurie ProviderMD - 10/03/2018 9:00 AM CDT Pain Assessment Entered On: 10/03/2018 12:20 EDT Performed On: 10/03/2018 10:55 EDT by Lisa Haile RN Intervention Information: acetaminophen Performed by Lisa Haile RN on 10/03/2018 09:55:00 EDT acetaminophen,500mg Oral Pain Assessment Pain Scale Goal : 3 Pain Scale Used : 0-10 Scale Pain Improved by Intervention : Yes Lisa Haile RN - 10/03/2018 12:20 EDT Pain Scale Intensity : 0 Lisa Haile RN - 10/03/2018 12:20 EDT Image 4 - Images currently included in the form version of this document have not been included in the text rendition version of the form. documented in this encounter Plan of Treatment Not on file documented as of this encounter Visit Diagnoses Not on filedocumented in this encounter Care Teams Car Servicer Relationship Specialty Start Date End Date Juan José Kendall MD [address] [facility] [address] [place] [id number] PCP - General Family Medicine 12/25/22 Juan José Kendall MD [address] [facility] [address] [place] [phone] Referring Physician Family Medicine 12/25/22 documented as of this encounter
--- OUTSIDE RECORDS SUMMARY | 2024-03-11 09:15 | XMS_ITS | Encounter Summary ---
Author Organization [employer] Address [address] [place] [address] Care Team Providers Care Aviation Electronics Technician Name Role Phone Juan José Kendall MD Primary Care Provider + [phone] Juan José Kendall MD Unavailable [phone] Encounter Details Date Type Department Care Team (Late st Contact Info) Description 10/03/2018 Transcribed Document [facility] [facility] [place] [address] ProviderLaurie MD [address] [place] [address] Social History Tobacco Use Types Packs/Day Years Used Date Smoking Tobacco: Never Assessed Comments Unknown Sex and Gender Information Value Date Recorded Sex Assigned at Not on file Legal Sex Female 2:23 PM CDT Gender Identity Not on file Sexual Orientation Not on file documented as of this encounter Miscellaneous Notes * Cerner Conversion Note - Historical ProviderMD - 10/03/2018 2:53 PM CDT Care Management Assessment/Plan Entered On: 10/03/2018 14:57 EDT Performed On: 10/03/2018 14:53 EDT by PJ NELSON Care Management Note Care Management Note : 10/03/2018 Call received from [facility], they are unable to offer a bed for this patient. Patient and notified. They request a referral be faxed to [facility] (P: [phone] F: [phone]), faxed per their request. Awaiting a call back. Care Management Note Report : PJ NELSON - 10/03/18 13:54:20 10/03/2018 Bev Lewis, here to evaluate patient for possible bed placement. NELSON PJ - 10/03/18 09:57:17 10/03/2018 Jose, clinical liaison Zach Donohue, coming to the unit to eval patient for possible bed placement. Updates faxed per their request. NELSONPJ BELLO - 09/29/18 16:38:16 09/29/2018 Per ID, abx therapy to stop 10/05/2018. Patient states she is open to rehab, but prefers it be close to her home in [place]. Referrals faxed to Debbie Patricia (Signature liaison), [facility], Zach Donohue, and [facility]. Awaiting a call back. NELSONPJ BELLO - 09/28/18 16:26:43 09/28/2018 Fax recieved from [facility] with approval for LTACH services 09/29-10/04. Auth# [id number]. Fax next clinical review to [phone] on 10/05/2018. PJ NELSON - 09/28/18 08:24:24 09/28/2018 Clinical review faxed to [facility] ([phone]) to request coverage for continued LTACH services. Approval pending. Auth# [id number]. PJ NELSON - 09/21/18 15:48:14 09/21/2018 Fax recieved from [facility] with approval for LTACH coverage 09/22/2018-09/28/2018. Auth# [id number]. Fax next clinical review to [phone] on 09/28/2018. PJ NELSON 09/21/18 08:22:57 09/21/2018 Clinical review faxed to [facility] ([phone]) to request coverage for continued LTACH services. Approval pending. Auth# [id number]. PJ NELSON 09/15/18 11:34:17 09/15/2018 Fax recieved from [facility] with approval for LTACH services 09/15-09/21/2018. Auth# [id number]. Fax next clinical review to [phone] on 09/21/2018. PJ NELSON - 09/14/18 08:28:49 09/14/2018 Clinical review faxed to [facility] ([phone]) to request coverage for continued LTACH services. Approval pending. Auth# [id number]. Chuyita Briceno, Clinical Assessment Liaison - 09/09/18 [...] unit or SNF. She has previously used [facility] and prefers to use them again if needed. The patient owns a shower chair, BSC and w/c. The patient has never needed a dialysis clinic. The patient has not fallen in the past 3 months. PCP- Dr. Ranjeet [facility] Orthopedic- Dr. Shay Guerrero [facility] SNF- [facility] [place] The patient does wish to return home upon discharge but understands that rehab/SNF may be needed. All papers were explained and signed. No other issues. CM will continue to monitor. Documentation Status Complete : Yes PJ NELSON - 10/03/2018 14:53 EDT Electronically signed by Aleks [facility] Conversion Marketing Education Teacher Cerner at 07/24/2022 3:58 PM CDT documented in this encounter Plan of Treatment Not on file documented as of this encounter Visit Diagnoses Not on filedocumented in this encounter Care Teams Aviation Electronics Technician Relationship Specialty Start Date End Date Juan José Kendall MD [address] [facility] [address] [place] [phone] PCP - General Family Medicine 12/25/22 Juan José Kendall MD [address] [facility] [address] [place] [phone] Referring Physician Family Medicine 12/25/22 documented as of this encounter
--- OUTSIDE RECORDS SUMMARY | 2024-03-11 09:15 | XMS_ITS | Encounter Summary ---
Author Organization [email or web address] Address [address] [place] [address] Care Team Providers Care Physician Practice Market Manager Name Role Phone Juan José Kendall MD Primary Care Provider +- [phone] Juan José Kendall MD Unavailable [phone] Encounter Details Date Type Department Care Team (Late st Contact Info) Description 10/04/2018 Transcribed Document [facility] Family Medicine [facility] [place] [address] ProviderLaurie MD [address] [place] [id number] Social History Tobacco Use Types Packs/Day Years Used Date Smoking Tobacco: Never Assessed Comments Unknown Sex and Gender Information Value Date Recorded Sex Assigned at Not on file Legal Sex Female 2:23 PM CDT Gender Identity Not on file Sexual Orientation Not on file documented as of this encounter Miscellaneous Notes * Cerner Conversion Note - Historical ProviderMD - 10/04/2018 8:08 PM CDT Patient: TRUDI BLAIR Age: 63 years Sex: Female : 1955 Associated Diagnoses: None Author: KWAME BARNARD MD-INF ID Progress Note Antibiotic therapy: Vancomycin [...] repair. She was more recently admitted to [facility] x2 earlier this month on 08/16 [...] getting wound care. She was transferred to [facility] today for a higher level of care. [...] the antibiotics without any adverse side effects. [place] removed yesterday at her incision site remains [...] Balthrop would like her to see an account support specialist at after her discharge from here. [...] She has had no knee wound drainage. ROS: As above Past Medical History: Arthritis Back pain GERD HLD NUVIA HTN Stress incontinence Past Surgical History: Left TKA, 2017 left patellar tendon repair, 06/2018 lumbar fusion hysterectomy right TKA right patellar tendon repair Family History: CAD HTN Cancer Social History: . lives in [place]. No tobacco, ETOH, or illicit drug use. Social & Psychosocial Habits Alcohol 06/23/2018 Alcohol Use History, Social Habits No Substance Abuse 06/23/2018 Recreational Drug Use History No Tobacco 06/23/2018 Smoking Status Never (less than 100 in l Smokeless Tobacco Status Never Objective: Vitals Signs (last 24 hrs) Last Charted Minimum Maximum Temp 98.1 (OCT 04 19:00) 97.8 (OCT 03 23:14) 98.1 (OCT 04 07:00) Apical HR 85 (OCT 04 09:43) 85 (OCT 04 09:43) 85 (OCT 04 09:43) Mon HR 72 (OCT 04 19:00) 71 (OCT 04 15:35) 85 (OCT 04 07:00) Resp Rate 20 (OCT 04 19:00) 15 (OCT 04 07:00) 20 (OCT 04 19:00) SBP H 151 (OCT 04 19:00) 139 (OCT 04 07:00) H 151 (OCT 04 19:00) DBP 71 (OCT 04 19:00) 61 (OCT 04 07:00) 71 (OCT 04 19:00) MAP 85 (OCT 04 15:35) 85 (OCT 04 15:35) 89 (OCT 03 23:14) SpO2 97 (OCT 04 19:00) 96 (OCT 03 23:14) 98 (OCT 04 07:00) PE: General: patient is alert and in [...] incision is intact with no erythema or drainage. Neuro: Alert and oriented x3. No focal [...] 03) 8.8 (OCT 02) 8.8 (OCT 01) AST 12 (OCT 03) 12 (SEP 29) [...] DVT 5. Acute renal failure/ATN?CKD Recommendations: 1. Continue vancomycin IV with an anticipated stop date of 10/05/18 2. Remove the Groshong catheter on 10/05/[address] Aleks [facility] Conversion Chrome Polisher Cerner at 07/24/2022 3:57 PM CDT documented in this encounter Plan of Treatment Not on file documented as of this encounter Visit Diagnoses Not on filedocumented in this encounter Care Teams Physician Practice Market Manager Relationship Specialty Start Date End Date Juan José Kendall MD [address] [facility] [address] [place] [phone] PCP - General Family Medicine 12/25/22 Juan José Kendall MD [address] [facility] [address] [place] [phone] Referring Physician Family Medicine 12/25/22 documented as of this encounter
--- OUTSIDE RECORDS SUMMARY | 2024-03-11 09:15 | XMS_ITS | Encounter Summary ---
Author Organization [employer] Address [address] [place] [address] Care Team Providers Care Web Weaver Name Role Phone Juan José Kendall MD Primary Care Provider + [phone] Juan José Kendall MD Unavailable [phone] Encounter Details Date Type Department Care Team (Late st Contact Info) Description 10/03/2018 Transcribed Document [facility] [place] Family Medicine [facility] [place] [address] ProviderLaurie MD [address] [place] [address] Social History Tobacco Use Types Packs/Day Years Used Date Smoking Tobacco: Never Assessed Comments Unknown Sex and Gender Information Value Date Recorded Sex Assigned at Not on file Legal Sex Female 2:23 PM CDT Gender Identity Not on file Sexual Orientation Not on file documented as of this encounter Miscellaneous Notes * Cerner Conversion Note - Historical ProviderMD - 10/03/2018 9:00 PM CDT Patch Check Entered On: 10/03/2018 20:08 EDT Performed On: 10/03/2018 20:07 EDT by FRANCISCO MOREJON RN Patch Check Patch Check Result : Yes Patch Check - Type of Patch : scopolamine (Transderm-Scop) FRANCISCO MOREJON RN - 10/03/2018 20:07 EDT documented in this encounter Plan of Treatment Not on file documented as of this encounter Visit Diagnoses Not on filedocumented in this encounter Care Teams Web Weaver Relationship Specialty Start Date End Date Juan José Kendall MD [address] [place] [id number] PCP - General Family Medicine 12/25/22 Juan José Kendall MD [address] [place] [id number] Referring Physician Family Medicine 12/25/22 documented as of this encounter
--- OUTSIDE RECORDS SUMMARY | 2024-03-11 09:15 | XMS_ITS | Encounter Summary ---
Author Organization [employer] Address [address] [place] [address] Care Team Providers Care Signal Operator Name Role Phone Juan José Kendall MD Primary Care Provider +- [phone] Juan José Kendall MD Unavailable [phone] Encounter Details Date Type Department Care Team (Late st Contact Info) Description 10/04/2018 Transcribed Document [facility] [place] Family [place] [facility] [place] [address] ProviderLaurie MD [address] [place] [address] Social History Tobacco Use Types Packs/Day Years Used Date Smoking Tobacco: Never Assessed Comments Unknown Sex and Gender Information Value Date Recorded Sex Assigned at Not on file Legal Sex Female 2:23 PM CDT Gender Identity Not on file Sexual Orientation Not on file documented as of this encounter Miscellaneous Notes * Cerner Conversion Note - Laurie ProviderMD - 10/04/2018 9:00 AM CDT Pain Assessment Entered On: 10/04/2018 13:44 EDT Performed On: 10/04/2018 10:43 EDT by Emily Fox RN Intervention Information: acetaminophen Performed by Emily Fox RN on 10/04/2018 09:43:00 EDT acetaminophen,500mg Oral Pain Assessment Pain Assessment : Follow-up assessment Pain Scale Goal : 3 Pain Scale Used : 0-10 Scale Emily Fox RN - 10/04/2018 13:44 EDT Pain Scale Intensity : 2 Emily Fox RN - 10/04/2018 13:44 EDT Image 4 - Images currently included in the form version of this document have not been included in the text rendition version of the form. documented in this encounter Plan of Treatment Not on file documented as of this encounter Visit Diagnoses Not on filedocumented in this encounter Care Teams Signal Operator Relationship Specialty Start Date End Date Juan José Kendall MD [address] [facility] [address] [place] [id number] PCP - General Family Medicine 12/25/22 Juan José Kendall MD [address] [facility] [address] [place] [id number] Referring Physician Family Medicine 12/25/22 documented as of this encounter
--- OUTSIDE RECORDS SUMMARY | 2024-03-11 09:15 | XMS_ITS | Encounter Summary ---
Author Organization [employer] Address [address] [place] [address] Care Team Providers Care Chiropractic Physician Name Role Phone Juan José Kenadll MD Primary Care Provider + [phone] Juan José Kendall MD Unavailable [phone] Encounter Details Date Type Department Care Team (Late st Contact Info) Description 10/03/2018 Transcribed Document [place] [facility] [place] [address] ProviderLaurie MD [address] [place] [address] Social History Tobacco Use Types Packs/Day Years Used Date Smoking Tobacco: Never Assessed Comments Unknown Sex and Gender Information Value Date Recorded Sex Assigned at Not on file Legal Sex Female 2:23 PM CDT Gender Identity Not on file Sexual Orientation Not on file documented as of this encounter Miscellaneous Notes * Cerner Conversion Note - Laurie ProviderMD - 10/03/2018 5:00 AM CDT Chart Check - Review Order Profile Entered On: 10/03/2018 5:07 EDT Performed On: 10/03/2018 5:00 EDT by FRANCISCO MOREJON RN Chart Check Powerplans Initiated/Discontinued as Appropriate : Yes All Active Orders Reviewed : Yes FRANCISCO MOREJON RN - 10/03/2018 5:06 EDT Electronically signed by Adia Fink Conversion Service Delivery Management Consultant Cerner at 07/24/2022 3:58 PM CDT documented in this encounter Plan of Treatment Not on file documented as of this encounter Visit Diagnoses Not on filedocumented in this encounter Care Teams Chiropractic Physician Relationship Specialty Start Date End Date Juan José Kendall MD [address] [place] [phone] PCP - General Family Medicine 12/25/22 Juan José Kendall MD [address] [place] [phone] Referring Physician Family Medicine 12/25/22 documented as of this encounter
--- OUTSIDE RECORDS SUMMARY | 2024-03-11 09:15 | XMS_ITS | Encounter Summary ---
Author Organization [employer] Address [address] [facility] [place] [address] Care Team Providers Care Truck Body Builder Name Role Phone Juan José Kednall MD Primary Care Provider +- [phone] Juan José Kendall MD Unavailable [phone] Encounter Details Date Type Department Care Team (Late st Contact Info) Description 10/05/2018 Transcribed Document [facility] [place] Family Medicine [facility] [place] [address] ProviderLaurie MD [address] [place] [address] Social History Tobacco Use Types Packs/Day Years Used Date Smoking Tobacco: Never Assessed Comments Unknown Sex and Gender Information Value Date Recorded Sex Assigned at Not on file Legal Sex Female 2:23 PM CDT Gender Identity Not on file Sexual Orientation Not on file documented as of this encounter Miscellaneous Notes * Cerner Conversion Note - Historical ProviderMD - 10/05/2018 3:00 AM CDT Nutrition Assessment Entered On: 10/05/2018 9:10 EDT Performed On: 10/05/2018 3:00 EDT by Nery Mckee Roll Table Operator Nutrition Assessment Nutrition Assessment Reason : Follow Up Current Nutrition Regimen Comment : 10/05: Pt intakes remain the same-continue to encourage supplement use for wound healing. Plans for care home this am per MD note. 09/30: pt reports appetite remains the same from last RD visit-states she is drinking ensure w/dinner and is getting tired of fruit punch simón. RD encouraged supplement use and pt agreeable to unflavored simón. Dx: sepsis, left prosthetic knee infection, prolonged IV abx PMH: GERD, high cholesterol, HTN, morbid obesity Labs: Cr 1.3 Meds: Statin, heparin, Zofran, KCl, florastor, abx, prn pain Skin: L knee medial, bilat medial upper thighs stage 1, left posterior heel stage 1; anasarca, 1+ trace edema GI: LBM 10/02, active BS Diet: Regular, Ensure Enlive (Dinner), Simón BID Intake: avg 57% x 7, no supplements documented Ht: 168cm (5'6) Wt: 140kg/308#, no new wt (09/12), no new wt (09/16), no new wt (09/23), 130kg/286# (09/30), no new wt (10/05) Wt Hx: 265# (06/23), 123kg/270# (08/30/18) Nery Mckee Dietician - 10/05/2018 9:06 EDT Nutrition Diagnoses Nutrient Intake : Increased nutrient needs Nutrient Intake Related to : skin integrity Nutrient Intake As Evidenced by : L knee medial +NPWT, left heel unstageable, bilat medial upper thighs stage 1, left posterior heel stage 2 Nutrient Intake Status : Active Increased Nutrient Needs Comment : protein, kcal Nery Mckee Dietician - 10/05/2018 9:06 EDT Nutrition Interventions Meals and Snacks : General/Healthful diet Meals and Snacks Other Comment : ensure daily, simón BID Nutrition Supplement Therapy : Commercial beverage Nery Mckee Dietician - 10/05/2018 9:06 EDT Monitoring/Evaluation Energy Intake : Total energy intake Protein Intake : Total protein Weight Status : Weight Maintanence Gastrointestinal Function : Bowel Function Integumentary : Wound Status Nery Mckee Dietician - 10/05/2018 9:06 EDT Nutrition Recommendations Dietitian Recommendations : 1. Continue current diet w/ Ensure Enlive daily and Simón BID - encourage supplement use. Goal: Po intake>50%, supplement use 2. Obtain wt weekly. Goal: no signficant unintended wt changes, beneficial wt loss encouraged Nutrition Care Level : Moderate Nery Mckee Dietician - 10/05/2018 9:06 EDT Electronically signed by Aleks [facility] Conversion Rough Carpenter Cerner at 07/24/2022 3:47 PM CDT documented in this encounter Plan of Treatment Not on file documented as of this encounter Visit Diagnoses Not on filedocumented in this encounter Care Teams Truck Body Builder Relationship Specialty Start Date End Date Juan José Kendall MD [address] [facility] [address] [place] [id number] PCP - General Family Medicine 12/25/22 Juan José Kendall MD [address] [facility] [address] [place] [phone] Referring Physician Family Medicine 12/25/22 documented as of this encounter
--- OUTSIDE RECORDS SUMMARY | 2024-03-11 09:15 | XMS_ITS | Encounter Summary ---
Author Organization [employer] Address [address] [place] [address] Care Team Providers Care Beet End Supervisor Name Role Phone Juan José Kendall MD Primary Care Provider +- [phone] Juan José Kendall MD Unavailable [phone] Encounter Details Date Type Department Care Team (Late st Contact Info) Description 10/05/2018 Transcribed Document [facility] [place] [facility] [place] [address] ProviderLaurie MD [address] [place] [id number] Social History Tobacco Use Types Packs/Day Years Used Date Smoking Tobacco: Never Assessed Comments Unknown Sex and Gender Information Value Date Recorded Sex Assigned at Not on file Legal Sex Female 2:23 PM CDT Gender Identity Not on file Sexual Orientation Not on file documented as of this encounter Miscellaneous Notes * Cerner Conversion Note - Historical ProviderMD - 10/05/2018 2:00 AM CDT Fern Gatherer Details Entered On: 10/05/2018 2:42 EDT Performed On: 10/05/2018 2:00 EDT by Anna Lowe, Rn Order Details Transport Mode Order Detail : Stretcher/Gurney Isolation Precautions Order Detail : Standard Precautions Order Detail : 0 IV Order Detail : 1 Oxygen Order Detail : 0 Nurse Collect Order Detail : 1 Lift/Transfer : Maximal assist Central Line Order Detail : Yes Room Service : Appropriate Arterial Line : No Anna Lowe, Rn - 10/05/2018 2:42 EDT Electronically signed by Adia [employer] Conversion Single Spindle Screw Machine Operator Cerner at 07/24/2022 3:46 PM CDT documented in this encounter Plan of Treatment Not on file documented as of this encounter Visit Diagnoses Not on filedocumented in this encounter Care Teams Beet End Supervisor Relationship Specialty Start Date End Date Juan José Kendall MD [address] [facility] [address] [place] [id number] PCP - General Family Medicine 12/25/22 Juan José Kendall MD [address] [facility] [address] [place] [phone] Referring Physician Family Medicine 12/25/22 documented as of this encounter
--- OUTSIDE RECORDS SUMMARY | 2024-03-11 09:15 | XMS_ITS | Encounter Summary ---
Author Organization [employer] Address [address] [place] [address] Care Team Providers Care Passenger Barge Master Name Role Phone Juan José Kendall MD Primary Care Provider + [phone] Juan José Kendall MD Unavailable [phone] Encounter Details Date Type Department Care Team (Late st Contact Info) Description 10/04/2018 Transcribed Document [facility] [place] [facility] [place] [address] ProviderLaurie MD [address] [place] [address] Social History Tobacco Use Types Packs/Day Years Used Date Smoking Tobacco: Never Assessed Comments Unknown Sex and Gender Information Value Date Recorded Sex Assigned at Not on file Legal Sex Female 2:23 PM CDT Gender Identity Not on file Sexual Orientation Not on file documented as of this encounter Miscellaneous Notes * Cerner Conversion Note - Historical ProviderMD - 10/04/2018 9:00 PM CDT Patch Check Entered On: 10/05/2018 0:01 EDT Performed On: 10/04/2018 21:00 EDT by Anna Lowe, Rn Patch Check Patch Check - Type of Patch : scopolamine (Transderm-Scop) Patch Check - Location : Left Ear Anna Lowe Rn - 10/05/2018 0:05 EDT Patch Check Result : Yes Anna Lowe Rn - 10/05/2018 0:00 EDT documented in this encounter Plan of Treatment Not on file documented as of this encounter Visit Diagnoses Not on filedocumented in this encounter Care Teams Passenger Barge Master Relationship Specialty Start Date End Date Juan José Kendall MD [address] [facility] [address] [place] [id number] PCP - General Family Medicine 12/25/22 Juan José Kendall MD [address] [facility] [address] [place] [phone] Referring Physician Family Medicine 12/25/22 documented as of this encounter
--- OUTSIDE RECORDS SUMMARY | 2024-03-11 09:15 | XMS_ITS | Encounter Summary ---
Author Organization [employer] Address [address] [place] [address] Care Team Providers Care Operator Prefinish Name Role Phone Juan José Kendall MD Primary Care Provider + [phone] Juan José Kendall MD Unavailable [phone] Encounter Details Date Type Department Care Team (Late st Contact Info) Description 10/04/2018 Transcribed Document [facility] [place] Family Medicine [facility] [place] [address] ProviderLaurie MD [address] [place] [address] Social History Tobacco Use Types Packs/Day Years Used Date Smoking Tobacco: Never Assessed Comments Unknown Sex and Gender Information Value Date Recorded Sex Assigned at Not on file Legal Sex Female 2:23 PM CDT Gender Identity Not on file Sexual Orientation Not on file documented as of this encounter Miscellaneous Notes * Cerner Conversion Note - Laurie ProviderMD - 10/04/2018 5:00 AM CDT Chart Check - Review Order Profile Entered On: 10/04/2018 3:28 EDT Performed On: 10/04/2018 5:00 EDT by FRANCISCO MOREJON RN Chart Check Powerplans Initiated/Discontinued as Appropriate : Yes All Active Orders Reviewed : Yes FRANCISCO MOREJON RN - 10/04/2018 3:28 EDT documented in this encounter Plan of Treatment Not on file documented as of this encounter Visit Diagnoses Not on filedocumented in this encounter Care Teams Operator Prefinish Relationship Specialty Start Date End Date Juan José Kendall MD [address] [place] [id number] PCP - General Family Medicine 12/25/22 Juan José Kendall MD [address] [place] [id number] Referring Physician Family Medicine 12/25/22 documented as of this encounter
--- OUTSIDE RECORDS SUMMARY | 2024-03-11 09:15 | XMS_ITS | Encounter Summary ---
Author Organization [employer] Address [address] [place] [address] Care Team Providers Care Crystallography Teacher Name Role Phone Juan José Kendall MD Primary Care Provider + [phone] Juan José Kendall MD Unavailable [phone] Encounter Details Date Type Department Care Team (Late st Contact Info) Description 10/06/2018 Transcribed Document [facility] [place] [address] ProviderLaurie MD [address] [place] [id number] Social History Tobacco Use Types Packs/Day Years Used Date Smoking Tobacco: Never Assessed Comments Unknown Sex and Gender Information Value Date Recorded Sex Assigned at Not on file Legal Sex Female 2:23 PM CDT Gender Identity Not on file Sexual Orientation Not on file documented as of this encounter Miscellaneous Notes * Cerner Conversion Note - Laurie Garcia MD - 10/06/2018 11:37 AM CDT Patient: TRUDI BLAIR Age: 63 years Sex: Female : 1955 Associated Diagnoses: 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 and spacer antibiotic placement; Acute kidney injury resolved; Hypertension; Hypercholesterolemia with endogenous hyperglyceridemia; GERD (gastroesophageal reflux disease); Obstructive sleep apnea; Morbid obesity with BMI of 45.0-49.9, adult; MRSA and Enterobacter Bacteremia; Anemia; Left calf posterior vein thrombosis; Malnutrition, severe Author: JONES HIDALGO MD-INT Basic Information 63 years old white female with a complicated medical history as listed below who underwent left total knee arthroplasty in August 13, 2016 and then later on she had ruptured tendon and underwent left patellar tendon repair by Dr. Guerrero on 06/27/2018. Patient was then doing well until she was transferred to [facility] from local hospital, [facility], with left hip prosthesis infection and was taken to the OR by Dr. Guerrero and underwent left prosthetic knee infection.(More details please see H&P). At [facility] patient was admitted with altered mental status due to MRSA bacteremia, hypotension, anemia, bacteriuria and pyuria. Patient started on IV antibiotics as recommended by infectious disease, Dr. Inder Briones and currently patient is completely off all antibiotics. Because of difficulty of getting IV access patient had a Groshong placed which later on removed and for her discharge. Because the patient had multiple comorbidities with the need of close monitoring by physicians and extremity excellent nursing care she was transferred to [facility]. During her hospitalization: Patient was seen by the following services ? ----- 1???infectious disease and as I mentioned that they were close monitoring of her antibiotics. 2???PT/OT, and patient was participating with rehabilitation 3???wound care nurse 4???nutrition Problem list 1???acute kidney injury on admission, multifactorial patient was seen and followed by [facility], Dr. Jones, her kidney functions improved tremendously. She had renal ultrasound which came back unremarkable 2???benign essential hypertension, all blood pressure medications were on hold for systolic blood pressure less than 130 and when blood pressure became stabilized X 3???hypercholesterolemia, simvastatin 40 mg was given daily 4???anemia for which patient had transfusion of packed RBCs 5???vitamin D deficiency patient had IV iron infusion 6???severe malnutrition, patient had nutritional supplement with ensure 3 times a day with meals and I recommended to continue to provide her with protein shake and ensure with meals 3 times a day 7???left posterior tibial vein thrombosis, as this was monitored very closely and patient was on heparin 5000 mg subcutaneous 3 times a day 8???GERD, Protonix 40 mg was given daily 9???obstructive sleep apnea oxygen and BiPAP were no more 10???morbid obesity with BMI of 46.3, patient was on sleep apnea precautions During her hospitalization, patient was on DVT prophylaxis, and as I mentioned she was seen by a cycle analyst, participating with PT/OT, was on DVT prophylaxis she was on regular diet. Today, patient is awake alert cooperative responsive under no acute distress and she got the maximum benefit from her hospital stay and nothing else can be offered to keep her in the hospital and she has stable. Another or lower level of care and she will be discharged to senior care facility to continue her care. After finishing her care at [facility], patient has to be discharged taking [facility] to see Dr. Edi Robles aureus specializing complicated cases and a Dr. Guerrero already communicated with him who already accepted the patient to be admitted to the service after she get clearance from infection. Patient is stable for discharge Review of Systems Constitutional: No fever, No weakness, No fatigue. Eye: No recent visual problem, No double vision, No visual disturbances. Ear/Nose/Mouth/Throat: No nasal congestion, No sore throat. Respiratory: No shortness of breath, No cough, No wheezing. Cardiovascular: No chest pain, No tachycardia. Gastrointestinal: No nausea, No vomiting. Genitourinary: Negative. Musculoskeletal: Negative. Integumentary: wound stable covered w. clean dressing, No rash, No pruritus. Neurologic: Alert and oriented X4, no dizziness. Health Status Allergies: Allergies (1) Active Reaction Biaxin Acid reflux Current medications: Medications (37) Active Scheduled: (14) acetaminophen 500 mg tab 500 mg 1 Tab, Oral, Q6HInt ammonium lact 12% lot 225 g 1 Application, Topical, BID atorvastatin 20 mg tab 20 mg 1 Tab, Oral, At Bedtime cholestyramine *LIGHT* pwd 4 g 4 Gram 1 Packet, Oral, BID heparin 5,000 units/1 mL inj 5,000 Units 1 mL, SubCutaneous, Q8HInt metoclopramide 10 mg tab 10 mg 1 Tab, Oral, BID metoprolol tartrate 25 mg tab 25 mg 1 Tab, Oral, Daily ondansetron 4 mg/2 mL inj 4 mg 2 mL, IV Push, [id number] pantoprazole EC 40 mg tab 40 mg 1 Tab, Oral, Daily potassium chloride CR 20 mEq tab 20 mEq 1 Tab, Oral, BID saccharomyces boulardii 250 mg cap 250 mg 1 Cap, Oral, Daily scopolamine 1.5 mg/72 hr patch 1 Patch, TransDermal, Q3Days topiramate 25 mg sprinkle cap 25 mg 1 Cap, Oral, BID vancomycin + NaCl 0.9% 100 mL 500 mg, IV Piggyback, Daily Continuous: (0) PRN: (23) acetaminophen 325 mg tab 650 mg 2 Tab, Oral, Q4H acetaminophen/HYDROcodone 325/5 mg tab 2 Tab, Oral, Q4H ALPRAZolam 0.25 mg tab 0.25 mg 1 Tab, Oral, Q6H bisacodyl 10 mg supp 10 mg 1 Supp, Rectal, BID calcium gluconate 1 Gram 10 mL, IV Piggyback, Daily calcium gluconate + NaCl 0.9% 100 mL 2 Gram 20 mL, IV Piggyback, Daily calcium gluconate + NaCl 0.9% 100 mL 2 Gram 20 mL, IV Piggyback, Q12H cloNIDine 0.1 mg tab 0.1 mg 1 Tab, Oral, Q4H loperamide 2 mg cap 4 mg 2 Cap, Oral, Q4H magnesium hydroxide 8% liq 30 mL 30 mL, Oral, Daily magnesium sulfate 2 Gram 50 mL, IV Piggyback, Daily magnesium sulfate 2 Gram 50 mL, IV Piggyback, Q2H metoclopramide 10 mg/2 mL inj 5 mg 1 mL, IV Push, Q6H ondansetron 4 mg/2 mL inj 4 mg 2 mL, IV Push, Q4H oxyCODONE 5 mg tab 10 mg 2 Tab, Oral, Q4H potassium chloride 10 mEq 50 mL, IV Piggyback, Q1H potassium chloride CR 20 mEq tab 20 mEq 1 Tab, Oral, Q2H potassium chloride CR 20 mEq tab 60 mEq 3 Tab, Oral, Q2H promethazine 25 mg tab 12.5 mg 0.5 Tab, Oral, Q6H simethicone 80 mg chew tab 80 mg 1 Tab, Oral, Q6H sodium phosphate 15 mMole 5 mL, IV Piggyback, Daily sodium phosphate 15 mMole 5 mL, IV Piggyback, Q6H traZODone 50 mg tab 50 mg 1 Tab, Oral, At Bedtime Problem list: Active Problems (8) Arthritis At risk for sleep apnea Back pain GERD (gastroesophageal reflux disease) High cholesterol History of obstructive sleep apnea HTN (hypertension) Stress incontinence Physical Examination VS/Measurements Vital Measurements 10/06/2018 7:42 EDT Systolic Blood Pressure 150 mmHg HI Diastolic Blood Pressure 68 mmHg Mean Arterial Pressure (MAP)-BMDI 89 Temperature Source Oral Temperature Mode Fahrenheit Temperature, Fahrenheit 98.1 Deg F Clinical Temperature, C 36.7 Deg C Heart Rate Monitored 79 bpm Respiratory Rate 15 Breaths/Min Oxygen Saturation 98 % General: Alert and oriented, No acute distress. [...] strength, No swelling. Integumentary: Warm, Intact, No rash, WOUND STABLE. Neurologic: Alert, Oriented, No focal deficits. Psychiatric: Cooperative, Appropriate mood & affect. Review / Management Results review: All Results 10/06/2018 4:46 EDT Sodium Level 143 mmol/L Potassium Level 3.6 mmol/L Chloride Level 112 mmol/L Carbon Dioxide Level 25 mmol/L Anion Gap 10 Glucose Level 90 mg/dL Blood Urea Nitrogen 12 mg/dL Creatinine Level 1.30 mg/dL HI eGFR 50 mL/min/1.73m2 LOW eGFR NonAfrican 41 mL/min/1.73m2 LOW Bun/Creatinine 9.2 Calcium Level 8.7 mg/dL Platelet Count 180 K/uL 10/05/2018 4:10 EDT PT 10.7 Second(s) INR 1.0 PTT 32.7 Second(s) HI . Condition: Stable. Discharge Plan Discharge Summary Plan Discharge Status: stable. Orders Order Profile (Selected) Inpatient Orders Ordered Discharge Notification Pharmacy: Start: 10/06/18 11:36:51 EDT Discharge: Start: T;N, Discharge to: Detention unit/facility. Diagnosis 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 and spacer antibiotic placement - Discharge, Medical. Acute kidney injury resolved - Discharge, Medical. Hypertension - Discharge, Medical. Hypercholesterolemia with endogenous hyperglyceridemia - Discharge, Medical. GERD (gastroesophageal reflux disease) - Discharge, Medical. Obstructive sleep apnea - Discharge, Medical. Morbid obesity with BMI of 45.0-49.9, adult - Discharge, Medical. MRSA and Enterobacter Bacteremia - Discharge, Medical. Anemia - Discharge, Medical. Left calf posterior vein thrombosis - Discharge, Medical. Malnutrition, severe - Discharge, Medical. Course Improving. Stable. Plan/ pt is HD & CLINICALLY STABLE AFEBRILE OK TO D/C CUSTODIAL FACILITY. Orders Order Profile (Selected) Prescriptions Prescribed oxyCODONE 5 mg oral capsule: 1 Cap, Oral, Cap, Q4H, PRN as needed for pain, 1-2 by mouth every 4-6 hours when necessary, X 2 Day(s), # 7 Cap, 0 Refill(s), other reason (Rx) Documented Medications Documented Amlactin 12% topical lotion: 1 Application, Topical, Lotion, BID, 0 Refill(s) Cholestyramine Light: 4 Gram, Oral, Powder, BID, 0 Refill(s) Metoprolol Succinate ER 25 mg oral tablet, extended release: 0 Refill(s) Milk of Magnesia 8% oral suspension: 30 mL, Oral, Liquid, Daily, PRN Constipation, 0 Refill(s) acetaminophen 500 mg oral tablet: 1 Tab, Oral, Tab, Q6HInt, 0 Refill(s) atorvastatin 20 mg oral tablet: 1 Tab, Oral, Tab, At Bedtime, 0 Refill(s) heparin 5000 units/mL injectable solution: 1 mL, SubCutaneous, Inj, Q8HInt, 0 Refill(s) metoclopramide 10 mg oral tablet: 1 Tab, Oral, Tab, BID, 0 Refill(s) pantoprazole 40 mg oral delayed release tablet: 1 Tab, Oral, EC Tab, Daily, 0 Refill(s) promethazine 25 mg oral tablet: 0.5 Tab, Oral, Tab, Q6H, PRN Nausea/Vomiting, 0 Refill(s) saccharomyces boulardii lyo: 250 mg, Oral, Cap, Daily, 0 Refill(s) simethicone 80 mg oral tablet, chewable: 1 Tab, Oral, Chew Tab, Q6H, PRN Other (See Comment), 0 Refill(s) topiramate 25 mg oral capsule: 1 Cap, Oral, BID, 0 Refill(s) traZODone 50 mg oral tablet: 1 Tab, Oral, Tab, At Bedtime, PRN Insomnia, 0 Refill(s). Impression and Plan twt 40 mn documented in this encounter Plan of Treatment Not on file documented as of this encounter Visit Diagnoses Not on filedocumented in this encounter Care Teams Crystallography Teacher Relationship Specialty Start Date End Date Juan José Kendall MD [address] [address] [address] [place] [address] PCP - General Family Medicine 12/25/22 Juan José Kendall MD [address] [facility] [address] [place] [address] Referring Physician Family Medicine 12/25/22 documented as of this encounter
--- OUTSIDE RECORDS SUMMARY | 2024-03-11 09:15 | XMS_ITS | Encounter Summary ---
Author Organization [employer] Address [address] [place] [address] Care Team Providers Care High Man Name Role Phone Juan José Kendall MD Primary Care Provider + [phone] Juan José Kendall MD Unavailable [phone] Encounter Details Date Type Department Care Team (Late st Contact Info) Description 10/05/2018 Transcribed Document [facility] [place] [facility] [place] [address] ProviderLaurie MD [address] [place] [address] Social History Tobacco Use Types Packs/Day Years Used Date Smoking Tobacco: Never Assessed Comments Unknown Sex and Gender Information Value Date Recorded Sex Assigned at Not on file Legal Sex Female 2:23 PM CDT Gender Identity Not on file Sexual Orientation Not on file documented as of this encounter Miscellaneous Notes * Cerner Conversion Note - Laurie ProviderMD - 10/05/2018 7:43 AM CDT Patient Education Materials Follows: documented in this encounter Plan of Treatment Not on file documented as of this encounter Visit Diagnoses Not on filedocumented in this encounter Care Teams High Man Relationship Specialty Start Date End Date Juan José Kendall MD [address] [place] [address] [facility] [address] [place] [id number] PCP - General Family Medicine 12/25/22 Juan José Kendall MD [address] [facility] [address] [place] [phone] Referring Physician Family Medicine 12/25/22 documented as of this encounter
--- OUTSIDE RECORDS SUMMARY | 2024-03-11 09:15 | XMS_ITS | Encounter Summary ---
Author Organization [employer] Address [address] [place] [address] Care Team Providers Care Gang Pusher Name Role Phone Juan José Kendall MD Primary Care Provider + [phone] Juan José Kendall MD Unavailable [phone] Encounter Details Date Type Department Care Team (Late st Contact Info) Description 10/05/2018 Transcribed Document [facility] [place] [facility] [place] [address] ProviderLaurie MD [address] [place] [id number] Social History Tobacco Use Types Packs/Day Years Used Date Smoking Tobacco: Never Assessed Comments Unknown Sex and Gender Information Value Date Recorded Sex Assigned at Not on file Legal Sex Female 2:23 PM CDT Gender Identity Not on file Sexual Orientation Not on file documented as of this encounter Miscellaneous Notes * Cerner Conversion Note - Laurie Garcia MD - 10/05/2018 7:33 PM CDT Patient: TRUDI BLAIR Age: 63 years Sex: Female : 1955 Associated Diagnoses: 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 and spacer antibiotic placement; Acute kidney injury; Hypertension; Hypercholesterolemia with endogenous hyperglyceridemia; GERD (gastroesophageal reflux disease); Obstructive sleep apnea; Morbid obesity with BMI of 45.0-49.9, adult; MRSA and Enterobacter Bacteremia; Anemia; Left posterior vein thrombosis; Malnutrition, severe Author: JONES HIDALGO MD-INT Basic Information awake alert comfortable, asympt. , pain under control, no trouble w. urination. ???Had a Groshong catheter removed Review of Systems Constitutional: No fever, No chills. Eye: No discharge, No blurring, No double vision, No visual disturbances. Ear/Nose/Mouth/Throat: No nasal congestion, No sore throat. Respiratory: No shortness of breath, No cough. Cardiovascular: No chest pain, No palpitations. Gastrointestinal: No nausea, No vomiting. Genitourinary: No change in urine stream. Musculoskeletal: Negative. Integumentary: wound stable covered w. clean dressing. Neurologic: Alert and oriented X4. Health Status [...] inj 4 mg 2 mL, IV Push, [id number] pantoprazole EC 40 mg tab 40 mg [...] Stress incontinence Physical Examination VS/Measurements Vital Measurements 10/05/2018 15:00 EDT Systolic Blood Pressure 145 mmHg HI Diastolic Blood Pressure 66 mmHg Temperature Source Oral Temperature Mode Fahrenheit Temperature, Fahrenheit 98.4 Deg F Clinical Temperature, C 36.9 Deg C Heart Rate Monitored 85 bpm Respiratory Rate 18 Breaths/Min Oxygen Saturation 96 % General: Alert and oriented, No acute [...] Review / Management Results review: All Results 10/04/2018 4:30 EDT Sodium Level 145 mmol/L Potassium Level 3.5 mmol/L Chloride Level 111 mmol/L Carbon Dioxide Level 26 mmol/L Anion Gap 12 Glucose Level 86 mg/dL Blood Urea Nitrogen 14 mg/dL Creatinine Level 1.30 mg/dL HI eGFR 50 mL/min/1.73m2 LOW eGFR NonAfrican 41 mL/min/1.73m2 LOW Bun/Creatinine 10.8 Calcium Level 8.8 mg/dL Platelet Count 189 K/uL . Condition: Stable. 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 Acute kidney injury - Admitting, Medical. Hypertension - Admitting, Medical. Hypercholesterolemia with endogenous hyperglyceridemia - Admitting, Medical. GERD (gastroesophageal reflux disease) - Admitting, Medical. Obstructive sleep apnea - Admitting, Medical. Morbid obesity with BMI of 45.0-49.9, adult - Admitting, Medical. MRSA and Enterobacter Bacteremia - Admitting, Medical. Anemia - Admitting, Medical. Left posterior vein thrombosis - Admitting, Medical. Malnutrition, severe - Admitting, Medical. Course: Plan/ cont. current care, pt/ot, encourage oral fluid intake, nutritional support, encourage use of respirometer, motoring blood pressure, renal function, blood glucose, and urine output. to group home facility in a.m.. Electronically signed by Adia Fink Conversion Workforce Services Representative Cerner at 07/24/2022 3:56 PM CDT documented in this encounter Plan of Treatment Not on file documented as of this encounter Visit Diagnoses Not on filedocumented in this encounter Care Teams Gang Pusher Relationship Specialty Start Date End Date Juan José Kendall MD [address] [place] [facility] [address] [place] [id number] PCP - General Family Medicine 12/25/22 Juan José Kendall MD [address] [place] [facility] [address] [place] [address] Referring Physician Family Medicine 12/25/22 documented as of this encounter
--- OUTSIDE RECORDS SUMMARY | 2024-03-11 09:15 | XMS_ITS | Encounter Summary ---
Author Organization [employer] Address [address] [place] [address] Care Team Providers Care Area Operations Manager Name Role Phone Juan José Kendall MD Primary Care Provider + [phone] Juan José Kendall MD Unavailable [phone] Encounter Details Date Type Department Care Team (Late st Contact Info) Description 10/04/2018 Transcribed Document [facility] [place] Family Medicine [facility] [place] [address] ProviderLaurie MD [address] [place] [id number] Social History Tobacco Use Types Packs/Day Years Used Date Smoking Tobacco: Never Assessed Comments Unknown Sex and Gender Information Value Date Recorded Sex Assigned at Not on file Legal Sex Female 2:23 PM CDT Gender Identity Not on file Sexual Orientation Not on file documented as of this encounter Miscellaneous Notes * Cerner Conversion Note - Laurie Garcia MD - 10/04/2018 8:22 PM CDT Patient: TRUDI BLAIR Age: 63 [...] pain under control, no trouble w. urination. ???Sitting on the chair today ???Low prealbumin level ???Scheduled for penitentiary facility in a.m. ???Scheduled to see Dr. Robles after her discharge Review of Systems Constitutional: No fever, [...] inj 4 mg 2 mL, IV Push, [id number] pantoprazole EC 40 mg tab 40 mg [...] Stress incontinence Physical Examination VS/Measurements Vital Measurements 10/04/2018 19:00 EDT Systolic Blood Pressure 151 mmHg HI Diastolic Blood Pressure 71 mmHg Temperature Source Oral Temperature Mode Fahrenheit Temperature, Fahrenheit 98.1 Deg F Clinical Temperature, C 36.7 Deg C Heart Rate Monitored 72 bpm Respiratory Rate 20 Breaths/Min Oxygen Saturation 97 % General: Alert and oriented, No acute [...] LOW Bun/Creatinine 10.8 Calcium Level 8.8 mg/dL 10/03/2018 4:10 EDT Sodium Level 145 mmol/L Potassium Level 3.6 mmol/L Chloride Level 112 mmol/L Carbon Dioxide Level 27 mmol/L Anion Gap 10 Glucose Level 93 mg/dL Blood Urea Nitrogen 14 mg/dL Creatinine Level 1.30 mg/dL HI eGFR 50 mL/min/1.73m2 LOW eGFR NonAfrican 41 mL/min/1.73m2 LOW Bun/Creatinine 10.8 Calcium Level 8.6 mg/dL Protein Total 5.5 Gram/dL LOW Albumin Level 2.3 Gram/dL LOW Globulin 3.2 Gram/dL A/G Ratio 0.7 LOW Bilirubin Total 0.3 mg/dL Alk Phos 112 Units/Liter AST 12 Units/Liter ALT 9 Units/Liter LOW CRP 3.3 mg/dL HI WBC 5.9 K/uL RBC 2.72 Million/uL LOW Hgb 8.5 g/dL LOW Hct 26.6 % LOW MCV 97.8 fL HI MCH 31.3 pg MCHC 32.0 Gram/dL LOW Platelet Count 184 K/uL MPV 11.6 fL RDW 17.2 % HI Neut % 63.9 % Neut # 3.78 K/uL Lymph % 18.2 % LOW Lymph # 1.08 x10(3)/uL [place] % 10.5 % HI [place] # 0.62 K/uL Eos % 6.6 % Eos # 0.39 x10(3)/uL Baso % 0.3 % Baso # 0.02 x10(3)/uL Sed Rate Auto 33 mm/Hr HI Slide Review No IG# 0.03 x10(3)/uL IG% 0.50 % Prealbumin 10.9 mg/dL LOW . Condition: Stable. Impression and Plan [...] renal function, blood glucose, and urine output. For penitentiary facility in a.m.. documented in this encounter Plan of Treatment Not on file documented as of this encounter Visit Diagnoses Not on filedocumented in this encounter Care Teams Area Operations Manager Relationship Specialty Start Date End Date Juan José Kendall MD [address] [facility] [address] [place] [phone] PCP - General Family Medicine 12/25/22 Juan José Kendall MD [address] [place] [facility] [address] [place] [phone] Referring Physician Family Medicine 12/25/22 documented as of this encounter
--- OUTSIDE RECORDS SUMMARY | 2024-03-11 09:15 | XMS_ITS | Encounter Summary ---
Author Organization [employer] Address [address] [place] [address] Care Team Providers Care Rail Bonder Name Role Phone Juan José Kendall MD Primary Care Provider +- [phone] Juan José Kendall MD Unavailable [phone] Encounter Details Date Type Department Care Team (Late st Contact Info) Description 10/04/2018 Transcribed Document [facility] [place] [facility] [place] [address] ProviderLaurie MD [address] [place], [place] [id number] Social History Tobacco Use Types Packs/Day Years Used Date Smoking Tobacco: Never Assessed Comments Unknown Sex and Gender Information Value Date Recorded Sex Assigned at Not on file Legal Sex Female 2:23 PM CDT Gender Identity Not on file Sexual Orientation Not on file documented as of this encounter Miscellaneous Notes * Cerner Conversion Note - Historical ProviderMD - 10/04/2018 2:00 AM CDT Communications Department Head Details Entered On: 10/04/2018 0:35 EDT Performed On: 10/04/2018 2:00 EDT by FRANCISCO MOREJON RN Order Details Transport Mode Order Detail : Stretcher/Gurney Isolation Precautions Order Detail : Standard Precautions Order Detail : 0 IV Order Detail : 0 Oxygen Order Detail : 0 Nurse Collect Order Detail : 1 Lift/Transfer : Maximal assist Central Line Order Detail : Yes Room Service : Appropriate Arterial Line : No FRANCISCO MOREJON RN - 10/04/2018 0:35 EDT documented in this encounter Plan of Treatment Not on file documented as of this encounter Visit Diagnoses Not on filedocumented in this encounter Care Teams Rail Bonder Relationship Specialty Start Date End Date Juan José Kendall MD [address] [facility] [address] [place] [phone] PCP - General Family Medicine 12/25/22 Juan José Kendall MD [address] [facility] [address] [place] [phone] Referring Physician Family Medicine 12/25/22 documented as of this encounter
--- OUTSIDE RECORDS SUMMARY | 2024-03-11 09:15 | XMS_ITS | Encounter Summary ---
Author Organization [employer] Address [address] [facility] [place] [address] Care Team Providers Care Channel Director Name Role Phone Juan José Kendall MD Primary Care Provider + [phone] Juan José Kendall MD Unavailable [phone] Encounter Details Date Type Department Care Team (Late st Contact Info) Description 10/05/2018 Transcribed Document [facility] [place] Family [place] [facility] [place] [address] ProviderLaurie MD [address] [place] [id number] Social History Tobacco Use Types Packs/Day Years Used Date Smoking Tobacco: Never Assessed Comments Unknown Sex and Gender Information Value Date Recorded Sex Assigned at Not on file Legal Sex Female 2:23 PM CDT Gender Identity Not on file Sexual Orientation Not on file documented as of this encounter Miscellaneous Notes * Cerner Conversion Note - Historical ProviderMD - 10/05/2018 11:26 AM CDT Care Management Assessment/Plan Entered On: 10/05/2018 11:30 EDT Performed On: 10/05/2018 11:26 EDT by PJ NELSON Care Management Note Care Management Note : 10/05/2018 [facility] authorization for admission, jermainebrian marinelli to get her tomorrow. Dr. Porter notified, and in agreement. Accepting physician Dr. Ordonez. Call report to [phone]. Fax DC summary to [phone]. [facility] transport scheduled for 10/06/2018 @ 1300. Care Management Note Report : RASHEED NELSONRALPH 10/05/18 08:54:39 10/05/2018 Clinical review faxed to [facility] ([phone]) to request coverage for continued LTACH services. Approval pending. Auth# [id number]. LESLIE PJ 10/05/18 08:47:08 Patient/ chose [facility]. Per Ashley, insurance preauth was started, awaiitng response. LESLIE PJ 10/04/18 10:04:33 10/04/2018 Bed offer received from [facility]. Family notified,now requesting to reconsider [facility]. I have explained that we need an answer for which place the prefer so that we can move forward with placement. states he will call both facilities, and they will make a decision. PJ NELSON 10/03/18 15:02:06 10/03/2018 Spoke with [facility], they do not have a contract with [facility]. PJ NELSON 10/03/18 14:57:34 10/03/2018 Call received from [facility] Velas[facility], they are unable to offer a bed for this patient. Patient and notified. They request a referral be faxed to [facility] (P: [phone] F: [phone]), faxed per their request. Awaiting a call [...] it be close to her home in [place]. Referrals faxed to Debbie Patricia (Signature liaison), [facility], [facility], and [facility]. Awaiting a call back. PJ NELSON - 09/28/18 16:26:43 09/28/2018 Fax recieved from [facility] with approval for LTACH services 09/29-10/04. Auth# [id number]. Fax next clinical review to [phone] on 10/05/2018. PJ NELSON - 09/28/18 08:24:24 09/28/2018 Clinical review faxed to [facility] ([phone]) to request coverage for continued LTACH services. Approval pending. Auth# [id number]. PJ NELSON - 09/21/18 15:48:14 09/21/2018 Fax recieved from [facility] with approval for LTACH coverage 09/22/2018-09/28/2018. Auth# [id number]. Fax next clinical review to [phone] on 09/28/2018. PJ NELSON - 09/21/18 08:22:57 09/21/2018 Clinical review faxed to [facility] ([phone]) to request coverage for continued LTACH services. Approval pending. Auth# [id number]. PJ NELSON - 09/15/18 11:34:17 09/15/2018 Fax recieved from [facility] with approval for LTACH services 09/15-09/21/2018. Auth# [id number]. Fax next clinical review to [phone] on 09/21/2018. PJ NELSON - 09/14/18 08:28:49 09/14/2018 Clinical review faxed to [facility] ([phone]) to request coverage for continued LTACH services. Approval pending. Auth# [id number]. Chuyita Briceno, Clinical Assessment Liaison - 09/09/18 [...] unit or SNF. She has previously used [facility] and prefers to use them again if needed. The patient owns a shower chair, BSC and w/c. The patient has never needed a dialysis clinic. The patient has not fallen in the past 3 months. PCP- Dr. Ranjeet [facility]- Orthopedic- Dr. Shay Guerrero [facility]- [facility] Natalia The patient does wish to return home upon discharge but understands that rehab/SNF may be needed. All papers were explained and signed. No other issues. CM will continue to monitor. Documentation Status Complete : Jerry NELSON RASHEEDRALPH - 10/05/2018 11:26 EDT Electronically signed by Aleks [facility] Conversion Supervisor Assembly And Packing Cerner at 07/24/2022 3:49 PM CDT documented in this encounter Plan of Treatment Not on file documented as of this encounter Visit Diagnoses Not on filedocumented in this encounter Care Teams Channel Director Relationship Specialty Start Date End Date Juan José Kendall MD [address] [facility] [address] [place] [address] PCP - General Family Medicine 12/25/22 Juan José Kendall MD [address] [facility] [address] [place] [phone] Referring Physician Family Medicine 12/25/22 documented as of this encounter
--- OUTSIDE RECORDS SUMMARY | 2024-03-11 09:15 | XMS_ITS | Encounter Summary ---
Author Organization [employer] Address [address] [place] [address] Care Team Providers Care Cnc Manufacturing Engineer Name Role Phone Juan José Kendall MD Primary Care Provider + [phone] Juan José Kendall MD Unavailable [phone] Encounter Details Date Type Department Care Team (Late st Contact Info) Description 10/06/2018 Transcribed Document [facility] [place] Family Medicine [address] [place] [address] ProviderLaurie MD [address] [place] [address] Social History Tobacco Use Types Packs/Day Years Used Date Smoking Tobacco: Never Assessed Comments Unknown Sex and Gender Information Value Date Recorded Sex Assigned at Not on file Legal Sex Female 2:23 PM CDT Gender Identity Not on file Sexual Orientation Not on file documented as of this encounter Miscellaneous Notes * Cerner Conversion Note - Historical ProviderMD - 10/06/2018 12:15 PM CDT Patient Education Materials Follows: Malnutrition Malnutrition is any condition in which [...] 02/05/2006 Document Revised: 08/27/2016 Document Reviewed: 11/16/2014 [employer] Interactive Patient Education ? 2019 [employer] Pediatrics Anemia Anemia is a condition in which [...] Follow these instructions at home: ??? Take [id number] and prescription medicines only as told by [...] 04/29/2005 Document Revised: 04/23/2017 Document Reviewed: 04/23/2017 [employer] Interactive Patient Education ? 2019 [employer]. documented in this encounter Plan of Treatment Not on file documented as of this encounter Visit Diagnoses Not on filedocumented in this encounter Care Teams Cnc Manufacturing Engineer Relationship Specialty Start Date End Date Juan José Kendall MD [address] [facility] [address] [place] [address] PCP - General Family Medicine 12/25/22 Juan José Kendall MD [address] [facility] [address] [place] [phone] Referring Physician Family Medicine 12/25/22 documented as of this encounter
--- OUTSIDE RECORDS SUMMARY | 2024-03-11 09:15 | XMS_ITS | Encounter Summary ---
Author Organization [employer] Address [address] [place] [address] Care Team Providers Care Gas Refrigerator Servicer Name Role Phone Juan José Kendall MD Primary Care Provider +- [phone] Juan José Kendall MD Unavailable [phone] Encounter Details Date Type Department Care Team (Late st Contact Info) Description 10/06/2018 Transcribed Document [facility] [place] [facility] [address] ProviderLaurie MD [address] [place] [address] Social History Tobacco Use Types Packs/Day Years Used Date Smoking Tobacco: Never Assessed Comments Unknown Sex and Gender Information Value Date Recorded Sex Assigned at Not on file Legal Sex Female 2:23 PM CDT Gender Identity Not on file Sexual Orientation Not on file documented as of this encounter Miscellaneous Notes * Cerner Conversion Note - Laurie ProviderMD - 10/06/2018 9:00 AM CDT Pain Assessment Entered On: 10/06/2018 11:06 EDT Performed On: 10/06/2018 10:25 EDT by Lisa Haile RN Intervention Information: acetaminophen Performed by Lisa Haile RN on 10/06/2018 09:25:00 EDT acetaminophen,500mg Oral Pain Assessment Pain Assessment : Follow-up assessment Pain Scale Goal : 3 Pain Scale Used : 0-10 Scale Location : Head Onset : Acute Pain Radiation : No Pain Improved by Intervention : Yes Pain Comment : patient still verbalizes pain but states it is improved Lisa Haile RN - 10/06/2018 11:05 EDT Pain Scale Intensity : 3 Lisa Haile, RN - 10/06/2018 11:05 EDT Image 4 - Images currently included in the form version of this document have not been included in the text rendition version of the form. documented in this encounter Plan of Treatment Not on file documented as of this encounter Visit Diagnoses Not on filedocumented in this encounter Care Teams Gas Refrigerator Servicer Relationship Specialty Start Date End Date Juan José Kendall MD [address] [facility] [address] [place] [phone] PCP - General Family Medicine 12/25/22 Juan José Kendall MD [address] [facility] [address] [place] [phone] Referring Physician Family Medicine 12/25/22 documented as of this encounter
--- OUTSIDE RECORDS SUMMARY | 2024-03-11 09:15 | XMS_ITS | Encounter Summary ---
Author Organization [employer] Address [address] [place] [address] Care Team Providers Care Pulp Bleacher Name Role Phone Juan José Kendall MD Primary Care Provider +- [phone] Juan José Kendall MD Unavailable [phone] Encounter Details Date Type Department Care Team (Late st Contact Info) Description 10/05/2018 Transcribed Document [facility] [place] [address] ProviderLaurie MD [address] [place] [address] Social History Tobacco Use Types Packs/Day Years Used Date Smoking Tobacco: Never Assessed Comments Unknown Sex and Gender Information Value Date Recorded Sex Assigned at Not on file Legal Sex Female 2:23 PM CDT Gender Identity Not on file Sexual Orientation Not on file documented as of this encounter Miscellaneous Notes * Cerner Conversion Note - Laurie ProviderMD - 10/05/2018 9:00 AM CDT Pain Assessment Entered On: 10/05/2018 11:07 EDT Performed On: 10/05/2018 10:20 EDT by Lisa Haile RN Intervention Information: acetaminophen Performed by Lisa Haile RN on 10/05/2018 09:20:00 EDT acetaminophen,500mg Oral Pain Assessment Pain Scale Goal : 3 Pain Scale Used : 0-10 Scale Pain Improved by Intervention : Yes Pain Comment : patient denies pain Lisa Haile RN - 10/05/2018 11:06 EDT Pain Scale Intensity : 0 Lisa Haile RN - 10/05/2018 11:06 EDT Image 4 - Images currently included in the form version of this document have not been included in the text rendition version of the form. documented in this encounter Plan of Treatment Not on file documented as of this encounter Visit Diagnoses Not on filedocumented in this encounter Care Teams Pulp Bleacher Relationship Specialty Start Date End Date Juan José Kendall MD [address] [facility] [address] [place] [phone] PCP - General Family Medicine 12/25/22 Juan José Kendall MD [address] [facility] [address] [place] [phone] Referring Physician Family Medicine 12/25/22 documented as of this encounter
--- OUTSIDE RECORDS SUMMARY | 2024-03-11 09:15 | XMS_ITS | Encounter Summary ---
Author Organization [employer] Address [address] [place] [address] Care Team Providers Care Audit Spec Name Role Phone Juan José Kendall MD Primary Care Provider + [phone] Juan José Kendall MD Unavailable [phone] Encounter Details Date Type Department Care Team (Late st Contact Info) Description 10/06/2018 Transcribed Document [facility] [place] Family [place] [facility] [place] [address] ProviderLaurie MD [address] [place] [address] Social History Tobacco Use Types [...] Historical ProviderMD - 10/06/2018 12:15 PM CDT Stroke/Warfarin Instructions Entered On: 10/06/2018 12:15 EDT Performed On: 10/06/2018 12:15 EDT by Lisa Haile RN Stroke/Warfarin Instructions Stroke/TIA Discharge Ins : N/A Warfarin Discharge Ins : N/A Lisa Haile RN - 10/06/2018 12:15 EDT documented in this encounter Plan of Treatment Not on file documented as of this encounter Visit Diagnoses Not on filedocumented in this encounter Care Teams Audit Spec Relationship Specialty Start Date End Date Juan José Kendall MD [address] [place] [phone] PCP - General Family Medicine 12/25/22 Juan José Kendall MD [address] [place] [phone] Referring Physician Family Medicine 12/25/22 documented as of this encounter
--- OUTSIDE RECORDS SUMMARY | 2024-03-11 09:16 | XMS_ITS | Encounter Summary ---
Author Organization [employer] Address [address] [place] [address] Care Team Providers Care Strategic Communications Specialist Name Role Phone Unavailable Primary Care Provider Unavailabl e Encounter Details Date Type Department Care Team (Late st Contact Info) Description 10/02/2018 Historic Encounter [address] [address] Provider [facility] Historical Social History Tobacco Use Types Packs/Day [...] Procedure Name Priority Date/Time Associated Diagnosis Comments CRP C-REACTIVE PROTEIN ([facility] DATA CONV) Routine 10/03/2018 4:10 AM EDT ESR SEDIMENTATION RATE AUTO ([facility] BKR DATA CONV) Routine 10/03/2018 4:10 AM EDT CBC W/ AUTO DIFF ([facility] BKR DATA CONV) Routine 10/03/2018 4:10 AM EDT AUTOMATED DIFFERENTIAL ([facility] BKR DATA CONV) Routine 10/03/2018 4:10 AM EDT CMP COMPREHENSIVE METABOLIC PANEL ([facility] DATA CONV) Routine 10/03/2018 4:10 AM EDT PREALBUMIN, SERUM(SENDOUT) Routine 10/03/2018 4:10 AM EDT BMP BASIC METABOLIC PANEL ([facility] BKR DATA CONV) Routine 10/02/2018 5:25 AM EDT PLATELET COUNT Routine 10/02/2018 5:25 AM EDT documented in this encounter Results * (ABNORMAL) Prealbumin, Serum(SENDOUT) (10/03/2018 4:10 AM EDT) Pre albumin 10.9(L) 20.0 - 40.0 mg/dL 10/03/2018 9:30 AM EDT Blood 10/03/2018 4:10 AM EDT 10/03/2018 9:17 AM EDT [facility] Historical Provider LAB BLOOD ORDERABLES Critical access hospital Result Performing Organization Address City/State/[facility] Co de Phone Number [facility] [address] [phone] * (ABNORMAL) CMP COMPREHENSIVE METABOLIC PANEL ([facility] BKR DATA CONV) (10/03/2018 4:10 AM EDT) Sodium Level 145 136 - 146 mmol/L 10/03/2018 9:34 AM EDT Potassium Level 3.6 3.5 - 5.1 mmol/L 10/03/2018 9:34 AM EDT Chloride Level 112 102 - 112 mmol/L 10/03/2018 9:34 AM EDT Carbon Dioxide Level 27 21 - 32 mmol/L 10/03/2018 9:34 AM EDT Anion Gap 10 9 - 20 10/03/2018 9:34 AM EDT Calcium Level 8.6 8.4 - 10.1 mg/dL 10/03/2018 9:34 AM EDT Glucose Level 93 74 - 106 mg/dL 10/03/2018 9:34 AM EDT Comment: [employer] has become aware of sulfasalazine and sulfapyridine [...] Urea Nitrogen 14 7 - 22 mg/dL 10/03/2018 9:34 AM EDT Creatinine Level 1.30(H) 0.55 - 1.02 mg/dL 10/03/2018 9:34 AM EDT Bun/Creatinine 10.8 8.0 - 20.0 10/03/2018 9:34 AM EDT Albumin Level 2.3(L) 3.4 - 5.0 Gram/dL 10/03/2018 9:34 AM EDT Protein, Total 5.5(L) 6.4 - 8.2 Gram/dL 10/03/2018 9:34 AM EDT A/G Ratio 0.7(L) 1.1 - 2.5 10/03/2018 9:34 AM EDT Alk Phos 112 27 - 136 Units/Lit er 10/03/2018 9:34 AM EDT ALT 9(L) 13 - 56 Units/Lit er 10/03/2018 9:34 AM EDT Comment: [employer] has become aware of sulfasalazine and sulfapyridine [...] AST 12 5 - 37 Units/Lit er 10/03/2018 9:34 AM EDT Comment: [employer] has become aware of sulfasalazine and sulfapyridine [...] the drug. Bilirubin, Total 0.3 0.2 - 1.2 mg/dL 10/03/2018 9:34 AM EDT Globulin 3.2 1.5 - 4.5 Gram/dL 10/03/2018 9:34 AM EDT eGFR 50(L) >=60 mL/min/1. 73m2 10/03/2018 9:40 AM EDT Comment: GFR <60 suggests chronic kidney disease, if found over 3 month period. GFR <15 indicates renal failure. eGFR NonAfrican 41(L) >=60 mL/min/1. 73m2 10/03/2018 9:40 AM EDT Comment: GFR <60 suggests chronic kidney disease, if found over 3 month period. GFR <15 indicates renal failure. Blood 10/03/2018 4:10 AM EDT 10/03/2018 9:17 AM EDT [facility] Historical Provider LAB BLOOD ORDERABLES Fi nal Result [facility] [address] [place] [address], [facility] [phone] * (ABNORMAL) CBC W/ AUTO DIFF ([facility] BKR DATA CONV) (10/03/2018 4:10 AM EDT) WBC 5.9 4.5 - 10.5 K/uL 10/03/2018 9:18 AM EDT RBC 2.72(L) 3.93 - 5.22 Million/uL 10/03/2018 9:18 AM EDT Hgb 8.5(L) 11.2 - 15.7 g/dL 10/03/2018 9:18 AM EDT Hct 26.6(L) 34.1 - 44.9 % 10/03/2018 9:18 AM EDT MCV 97.8(H) 79.0 - 94.8 fL 10/03/2018 9:18 AM EDT MCH 31.3 25.6 - 32.2 pg 10/03/2018 9:18 AM EDT MCHC 32.0(L) 32.2 - 36.5 Gram/dL 10/03/2018 9:18 AM EDT RDW 17.2(H) 11.7 - 14.9 % 10/03/2018 9:18 AM EDT Platelet Count 184 163 - 369 K/uL 10/03/2018 9:18 AM EDT MPV 11.6 9.4 - 12.4 fL 10/03/2018 9:18 AM EDT Slide Review No 10/03/2018 9:20 AM EDT Blood 10/03/2018 4:10 AM EDT 10/03/2018 9:10 AM EDT [facility] Provider LAB BLOOD ORDERABLES Fi nal Result Performing Organization Address City/[facility] Co de Phone Number [facility] [address] [phone] * (ABNORMAL) CRP C-REACTIVE PROTEIN ([facility] BKR DATA CONV) (10/03/2018 4:10 AM EDT) CRP 3.3(H) 0.0 - 0.9 mg/dL 10/03/2018 2:50 PM EDT Blood 10/03/2018 4:10 AM EDT 10/03/2018 2:30 PM EDT Result [facility] Provider LAB BLOOD ORDERABLES Fi nal Result Performing Organization Address [facility] Co de Phone Number [facility] [address] [phone] * (ABNORMAL) ESR SEDIMENTATION RATE AUTO ([facility] BKR DATA CONV) (10/03/2018 4:10 AM EDT) Sed Rate Auto 33(H) 0 - 30 mm/Hr 10/03/2018 9:24 AM EDT Blood 10/03/2018 4:10 AM EDT 10/03/2018 9:10 AM EDT Result [facility] Provider LAB BLOOD ORDERABLES Fi nal Result Performing Organization Address City/[facility] Co de Phone Number [facility] [address] [phone] * (ABNORMAL) AUTOMATED DIFFERENTIAL ([facility] BKR DATA CONV) (10/03/2018 4:10 AM EDT) Neut% 63.9 34.0 - 71.0 % 10/03/2018 9:18 AM EDT Lymph% 18.2(L) 19.3 - 53.1 % 10/03/2018 9:18 AM EDT [place]% 10.5(H) 3.0 - 9.0 % 10/03/2018 9:18 AM EDT Eos% 6.6 0.0 - 7.0 % 10/03/2018 9:18 AM EDT Baso% 0.3 0.0 - 1.5 % 10/03/2018 9:18 AM EDT IG% 0.50 0.00 - 0.60 % 10/03/2018 9:18 AM EDT Neut# 3.78 1.56 - 6.13 K/uL 10/03/2018 9:18 AM EDT Lymph# 1.08 1.00 - 3.90 x10(3)/uL 10/03/2018 9:18 AM EDT [place]# 0.62 0.16 - 1.00 K/uL 10/03/2018 9:18 AM EDT Eos# 0.39 0.00 - 0.80 x10(3)/uL 10/03/2018 9:18 AM EDT Baso# 0.02 0.00 - 0.20 x10(3)/uL 10/03/2018 9:18 AM EDT IG# 0.03 0.00 - 0.05 x10(3)/uL 10/03/2018 9:18 AM EDT Blood 10/03/2018 4:10 AM EDT 10/03/2018 9:10 AM EDT Narrative [facility] - 10/03/2018 9:20 AM EDT Added by Discern Expert [facility] Historical Provider LAB BLOOD ORDERABLES Fi nal Result [facility] [address] [phone] * Platelet count (10/02/2018 5:25 AM EDT) Platelet Count 191 163 - 369 K/uL 10/02/2018 9:30 AM EDT Blood 10/02/2018 5:25 AM EDT 10/02/2018 9:28 AM EDT us [facility] Historical Provider LAB BLOOD ORDERABLES Fi nal Result [facility] 1 [place], [place] [address] [phone] * (ABNORMAL) BMP BASIC METABOLIC PANEL ([facility] BKR DATA CONV) (10/02/2018 5:25 AM EDT) Glucose Level 95 74 - 106 mg/dL 10/02/2018 9:45 AM EDT Comment: [employer] has become aware of sulfasalazine and sulfapyridine [...] administration of the drug. Blood Urea Nitrogen 16 7 - 22 mg/dL 10/02/2018 9:45 AM EDT Creatinine Level 1.30(H) 0.55 - 1.02 mg/dL 10/02/2018 9:45 AM EDT Sodium Level 144 136 - 146 mmol/L 10/02/2018 9:45 AM EDT Potassium Level 3.4(L) 3.5 - 5.1 mmol/L 10/02/2018 9:45 AM EDT Chloride Level 112 102 - 112 mmol/L 10/02/2018 9:45 AM EDT Carbon Dioxide Level 26 21 - 32 mmol/L 10/02/2018 9:45 AM EDT Anion Gap 9 9 - 20 10/02/2018 9:45 AM EDT Calcium Level 8.8 8.4 - 10.1 mg/dL 10/02/2018 9:45 AM EDT Bun/Creatinine 12.3 8.0 - 20.0 10/02/2018 9:45 AM EDT eGFR NonAfrican 41(L) >=60 mL/min/1. 73m2 10/02/2018 9:46 AM EDT Comment: GFR <60 suggests chronic kidney disease, if found over 3 month period. GFR <15 indicates renal failure. eGFR 50(L) >=60 mL/min/1. 73m2 10/02/2018 9:46 AM EDT Comment: GFR <60 suggests chronic kidney disease, if found over 3 month period. GFR <15 indicates renal failure. Blood 10/02/2018 5:25 AM EDT 10/02/2018 9:36 AM EDT [facility] Historical Provider LAB BLOOD ORDERABLES Fi nal Result [facility] [address] [phone] documented in this encounter Visit Diagnoses Not on filedocumented in this encounter
--- OUTSIDE RECORDS SUMMARY | 2024-03-11 09:16 | XMS_ITS | Encounter Summary ---
Author Organization [employer] Address [address] [place] [address] Care Team Providers Care Power Plant Supervisor Name Role Phone Juan José Kendall MD Primary Care Provider + [phone] Juan José Kendall MD Unavailable [phone] Encounter Details Date Type Department Care Team (Late st Contact Info) Description 10/03/2018 Transcribed Document [facility] [place] Family Medicine [facility] [place] [address] ProviderLaurie MD [address] [place] [address] Social History Tobacco Use Types Packs/Day Years Used Date Smoking Tobacco: Never Assessed Comments Unknown Sex and Gender Information Value Date Recorded Sex Assigned at Not on file Legal Sex Female 2:23 PM CDT Gender Identity Not on file Sexual Orientation Not on file documented as of this encounter Miscellaneous Notes * Cerner Conversion Note - Laurie ProviderMD - 10/03/2018 1:53 PM CDT Care Management Assessment/Plan Entered On: 10/03/2018 13:54 EDT Performed On: 10/03/2018 13:53 EDT by PJ NELSON Care Management Note Care Management Note : 10/03/2018 Bev Lewis, here to evaluate patient for possible bed placement. Care Management Note Report : PJ NELSON - 10/03/18 09:57:17 10/03/2018 Jose clinical liaison Zach Donohue, coming to the unit to eval patient for possible bed placement. Updates faxed per their request. PJ NELSON - 09/29/18 16:38:16 09/29/2018 Per ID, abx therapy to stop 10/05/2018. Patient states she is open to rehab, but prefers it be close to her home in [place]. Referrals faxed to Debbie Patricia (Signature liaison), [place], [place], and [place]. Awaiting a call back. PJ NELSON - 09/28/18 16:26:43 09/28/2018 Fax recieved from [facility] with approval for LTACH services 09/29-10/04. Auth# [id number]. Fax next clinical review to [phone] on 10/05/2018. PJ NELSON - 09/28/18 08:24:24 09/28/2018 Clinical review faxed to [facility] ([phone]) to request coverage for continued LTACH services. Approval pending. Auth# [id number]. PJ NELSON - 09/21/18 15:48:14 09/21/2018 Fax recieved from [facility] with approval for LTACH coverage 09/22/2018-09/28/2018. Auth# [id number]. Fax next clinical review to [phone] on 09/28/2018. PJ NELSON - 09/21/18 08:22:57 09/21/2018 Clinical review faxed to [facility] ([phone]) to request coverage for continued LTACH services. Approval pending. Auth# [id number]. PJ NELSON - 09/15/18 11:34:17 09/15/2018 Fax recieved from [facility] with approval for LTACH services 09/15-09/21/2018. Auth# [id number]. Fax next clinical review to [phone] on 09/21/2018. PJ NELSON - 09/14/18 08:28:49 09/14/2018 Clinical review faxed to [facility] ([phone]) to request coverage for continued LTACH services. Approval pending. Auth# [id number]. Chuyita Briceno, Clinical Assessment Liaison - 09/09/18 [...] unit or SNF. She has previously used [facility] and prefers to use them again if needed. The patient owns a shower chair, BSC and w/c. The patient has never needed a dialysis clinic. The patient has not fallen in the past 3 months. PCP- Dr. [facility]- Orthopedic- Dr. Shay Guerrero [facility]- - [facility] SNF- [facility]- [facility] [place] The patient does wish to return home upon discharge but understands that rehab/SNF may be needed. All papers were explained and signed. No other issues. CM will continue to monitor. Documentation Status Complete : Yes PJ NELSON - 10/03/2018 13:53 EDT documented in this encounter Plan of Treatment Not on file documented as of this encounter Visit Diagnoses Not on filedocumented in this encounter Care Teams Power Plant Supervisor Relationship Specialty Start Date End Date Juan José Kendall MD [address] [facility] [address] [place] [address] PCP - General Family Medicine 12/25/22 Juan José Kendall MD [address] [facility] [address] [place] [address] Referring Physician Family Medicine 12/25/22 documented as of this encounter
--- OUTSIDE RECORDS SUMMARY | 2024-03-11 09:16 | XMS_ITS | Encounter Summary ---
Author Organization [employer] Address [address] [place] [address] Care Team Providers Care Hoisting Engine Operator Name Role Phone Juan José Kendall MD Primary Care Provider + [phone] Juan José Kendall MD Unavailable [phone] Encounter Details Date Type Department Care Team (Late st Contact Info) Description 10/03/2018 Transcribed Document [facility] [place] Family Medicine [facility] [place] [address] ProviderLaurie MD [address] [place] [id number] Social History Tobacco Use Types Packs/Day Years Used Date Smoking Tobacco: Never Assessed Comments Unknown Sex and Gender Information Value Date Recorded Sex Assigned at Not on file Legal Sex Female 2:23 PM CDT Gender Identity Not on file Sexual Orientation Not on file documented as of this encounter Miscellaneous Notes * Cerner Conversion Note - Historical ProviderMD - 10/03/2018 9:55 AM CDT Care Management Assessment/Plan Entered On: 10/03/2018 9:57 EDT Performed On: 10/03/2018 9:55 EDT by PJ NELSON Care Management Note Care Management Note : 10/03/2018 Jose, clinical liaison Zach Donohue, coming to the unit to eval patient for possible bed placement. Updates faxed per their request. Care Management Note Report : PJ NELSON - 09/29/18 16:38:16 09/29/2018 Per ID, abx therapy to stop 10/05/2018. Patient states she is open to rehab, but prefers it be close to her home in [place]. Referrals faxed to Debbie Patricia (Signature liaison), [place], [place], and [place]. Awaiting a call back. PJ NELSON - 09/28/18 16:26:43 09/28/2018 Fax recieved from [facility] with approval for LTACH services 09/29-10/04. Auth# [id number]. Fax next clinical review to [phone] on 10/05/2018. PJ NELSON - 09/28/18 08:24:24 09/28/2018 Clinical review faxed to [facility] ([phone]) to request coverage for continued LTACH services. Approval pending. Auth# [id number]. PJ NELSON - 09/21/18 15:48:14 09/21/2018 Fax recieved from [facility] with approval for LTACH coverage 09/22/2018-09/28/2018. Auth# [id number]. Fax next clinical review to [phone] on 09/28/2018. PJ NELSON - 09/21/18 08:22:57 09/21/2018 Clinical review faxed to [facility] ([phone]) to request coverage for continued LTACH services. Approval pending. Auth# [id number]. PJ NELSON - 09/15/18 11:34:17 09/15/2018 Fax recieved from [facility] with approval for LTACH services 09/15-09/21/2018. Auth# [id number]. Fax next clinical review to [phone] on 09/21/2018. PJ NELSON - 09/14/18 08:28:49 09/14/2018 Clinical review faxed to [facility] ([phone]) to request coverage for continued LTACH services. Approval pending. Auth# [id number]. Chuyita Briceno, Clinical Assessment Liaison - 09/09/18 [...] [facility] Orthopedic- Dr. Shay Guerrero [facility]- - [facility]- [facility] [place] The patient does wish to return home upon discharge but understands that rehab/SNF may be needed. All papers were explained and signed. No other issues. CM will continue to monitor. Documentation Status Complete : Yes PJ NELSON - 10/03/2018 9:55 EDT Electronically signed by Aleks [facility] Conversion Protection Consultant Cerner at 07/24/2022 3:48 PM CDT documented in this encounter Plan of Treatment Not on file documented as of this encounter Visit Diagnoses Not on filedocumented in this encounter Care Teams Hoisting Engine Operator Relationship Specialty Start Date End Date Juan José Kendall MD [address] [facility] [address] [place] [id number] PCP - General Family Medicine 12/25/22 Juan José Kendall MD [address] [facility] [address] [place] [phone] Referring Physician Family Medicine 12/25/22 documented as of this encounter
--- OUTSIDE RECORDS SUMMARY | 2024-03-11 09:16 | XMS_ITS | Encounter Summary ---
Author Organization [employer] Address [address] [place] [address] Care Team Providers Care Income Auditor Name Role Phone Juan José Kendall MD Primary Care Provider +- [phone] Juan José Kendall MD Unavailable [phone] Encounter Details Date Type Department Care Team (Late st Contact Info) Description 10/02/2018 Transcribed Document [facility] [place] Family Medicine [facility] [place] [address] ProviderLaurie MD [address] [place] [address] Social History Tobacco Use Types Packs/Day Years Used Date Smoking Tobacco: Never Assessed Comments Unknown Sex and Gender Information Value Date Recorded Sex Assigned at Not on file Legal Sex Female 2:23 PM CDT Gender Identity Not on file Sexual Orientation Not on file documented as of this encounter Miscellaneous Notes * Cerner Conversion Note - Historical ProviderMD - 10/02/2018 2:00 AM CDT Systems Developer Details Entered On: 10/02/2018 2:27 EDT Performed On: 10/02/2018 2:00 EDT by Joanne Norton, RN Order Details Transport Mode Order Detail : Stretcher/Gurney Isolation Precautions Order Detail : Standard Precautions Order Detail : 0 IV Order Detail : 0 Oxygen Order Detail : 0 Nurse Collect Order Detail : 1 Lift/Transfer : Maximal assist Central Line Order Detail : Yes Room Service : Appropriate Arterial Line : No Joanne Norton, RN - 10/02/2018 2:27 EDT documented in this encounter Plan of Treatment Not on file documented as of this encounter Visit Diagnoses Not on filedocumented in this encounter Care Teams Income Auditor Relationship Specialty Start Date End Date Juan José Kendall MD [address] [facility] [address] [place] [phone] PCP - General Family Medicine 12/25/22 Juan José Kendall MD [address] [facility] [address] [place] [phone] Referring Physician Family Medicine 12/25/22 documented as of this encounter
--- OUTSIDE RECORDS SUMMARY | 2024-03-11 09:16 | XMS_ITS | Encounter Summary ---
Author Organization [employer] Address [address] [place] [address] Care Team Providers Care Plate Stacker Name Role Phone Juan José Kendall MD Primary Care Provider +- [phone] Juan José Kendall MD Unavailable [phone] Encounter Details Date Type Department Care Team (Late st Contact Info) Description 10/01/2018 Transcribed Document [facility] [place] Family Medicine Counts include 234 beds at the [facility] [address] ProviderLaurie MD [address] [place] [address] Social History Tobacco Use Types Packs/Day Years Used Date Smoking Tobacco: Never Assessed Comments Unknown Sex and Gender Information Value Date Recorded Sex Assigned at Not on file Legal Sex Female 2:23 PM CDT Gender Identity Not on file Sexual Orientation Not on file documented as of this encounter Miscellaneous Notes * Cerner Conversion Note - Laurie ProviderMD - 10/01/2018 6:35 PM CDT Patient: TRUDI BLAIR Age: 63 years Sex: Female : 1955 Associated Diagnoses: None Author: KWAME BARNARD MD-INF ID Progress Note Antibiotic therapy: Vancomycin CC: left leg pain Subjective: 08/30/18: Trudi Blair is a 63 yo woman with pmh of GERD, HTN, HLD, and left TKA in 2017 who was doing well until she had a left patellar tendon rupture in 06/2018 and was taken to the OR by Dr. Guerrero for tendon repair. She was more recently admitted to [facility] x2 earlier this month on 08/16 [...] getting wound care. She was [place] [facility] [place] higher level of care. [...] the antibiotics without any adverse side effects. [place] removed yesterday at her incision site remains intact without any drainage or redness. She is overall doing very well. No fevers. 10/01/18: She has no new complaints today. She denies nausea, vomiting, and diarrhea. She remains afebrile. She is scheduled to complete her intravenous vancomycin on 10/05. She denies increased left knee pain. She states that Dr. Guerrero would like her to see an pre billing specialist at after her discharge from here. She will require subsequent left knee reconstructive surgery. ROS: As above Past Medical History: Arthritis Back pain GERD HLD NUVIA HTN Stress incontinence Past Surgical History: Left TKA, 2017 left patellar tendon repair, 06/2018 lumbar fusion hysterectomy right TKA right patellar tendon repair Family History: CAD HTN Cancer Social History: . lives in [place]. No tobacco, ETOH, or illicit drug use. Social & Psychosocial Habits Alcohol 06/23/2018 Alcohol Use History, Social Habits No Substance Abuse 06/23/2018 Recreational Drug Use History No Tobacco 06/23/2018 Smoking Status Never (less than 100 in l Smokeless Tobacco Status Never Objective: Vitals Signs (last 24 hrs) Last Charted Minimum Maximum Temp 98.1 (OCT 01 15:00) 97.8 (SEP 30 19:26) 98.2 (SEP 30 23:12) Apical HR 79 (OCT 01 09:10) 79 (OCT 01 09:10) 79 (OCT 01 09:10) Mon HR 74 (SEP 29 15:00) 74 (SEP 29 15:00) 86 (SEP 28 23:12) Resp Rate 18 (SEP 28 23:12) 18 (SEP 28 19:26) 18 (SEP 30 19:26) SBP H 149 (OCT 01 15:00) H 144 (SEP 28 23:12) H 164 (OCT 01 09:10) DBP 67 (OCT 01 15:00) L 58 (OCT 01 09:10) 68 (SEP 30 19:26) MAP 87 (OCT 01 15:00) 80 (SEP 28 23:12) 89 (SEP 30 19:26) SpO2 98 (SEP 29 15:00) 97 (SEP 28 23:12) 99 (SEP 30 19:26) PE: General: patient is alert and in [...] LABS: Labs (Last four charted values) WBC 6.2 (EDGARD 27) 5.8 (EDGARD 24) 5.7 (EDGARD 17) 7.0 (EDGARD 14) HB L 8.7 (EDGARD 27) L 8.3 (EDGARD 24) L 8.2 (EDGARD 17) L 8.6 (EDGARD 14) HCT L 26.8 (EDGARD 27) L 26.3 (EDGARD 24) L 26.3 (EDGARD 17) L 27.2 (EDGARD 14) Plt 182 (EDGARD 28) 182 (EDGARD 27) 180 (EDGARD 26) 186 (EDGARD 24) Na 143 (EDGARD 29) 145 (EDGARD 28) 144 (EDGARD 27) 143 (EDGARD 26) K 3.5 (EDGARD 29) 3.5 (EDGARD 28) 3.5 (EDGARD 27) L 3.4 (EDGARD 26) Cl H 113 (EDGARD 29) H 113 (EDGARD 28) 112 (EDGARD 27) H 113 (EDGARD 26) CO2 26 (EDGARD 29) 27 (EDGARD 28) 26 (EDGARD 27) 25 (EDGARD 26) BUN 16 (EDGARD 29) 21 (EDGARD 28) 22 (EDGARD 27) 15 (EDGARD 26) Cr H 1.20 (EDGARD 29) H 1.20 (EDGARD 28) H 1.20 (EDGARD 27) H 1.20 (EDGARD 26) Glu R 93 (EDGARD 29) 93 (EDGARD 28) 92 (EDGARD 27) 90 (EDGARD 26) Ca 8.8 (EDGARD 29) 8.6 (EDGARD 28) 8.8 (EDGARD 27) 8.4 (EDGARD 26) AST 12 (EDGARD 27) 14 (EDGARD 24) 11 (EDGARD 17) 14 (EDGARD 14) ALT L 7 (EDGARD 27) L 7 (EDGARD 24) L 8 (EDGARD 17) L 8 (EDGARD 14) ALK P 115 (EDGARD 27) 119 (EDGARD 24) 119 (EDGARD 17) 127 (EDGARD 14) T Bili 0.4 (EDGARD 27) 0.5 (EDGARD 24) 0.6 (EDGARD 17) 0.7 (EDGARD 14) PTN L 5.5 (EDGARD 27) L 5.3 (EDGARD 24) L 5.0 (EDGARD 17) L 5.0 (EDGARD 14) ALB L 2.3 (SEP 29) L 2.2 (SEP 24) L 2.2 (SEP 17) L 2.3 (SEP 14) Lipase 191 (SEP 23) *labs (PowerNote only) in insert template MICRO: 08/31: tissue no growth IMAGING: No Radiology Results Found Assessment: -MRSA septicemia- grew from 08/10 blood cultures and was likely associate with right leg wound/prosthetic joint infection -enteroccocus UTI and septicemia- vanc sensitive enterococus grew from 08/19 blood culture and from 08/10 urine culture. some records reported enterobacter but this never grew from culture per OSH micro lab (must be an error) -Infected left leg wound- wound cultures grew staph epi and MRSA. 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 now s/p WANDA on 08/31 with abx spacer placement -DVT in left posterior tibial vein -Acute renal failure- Possible secondary to ATN from sepsis. has continued to improve -morbidy obesity --Anemia-stable. no signs of active bleeding on exam --infected PICC line- s/p PICC removal 08/31. s/p groshong cath placement Recommendations: 1. Continue IV vancomycin with PK dosing consultation and close monitoring of renal function. Anticipated stop date is 10/05/18. 2 Weekly Groshong catheter dressing changes. will need Groshong catheter removed after her antibiotic course ends (prior to discharge) 3. Weekly CBC with differential, CMP, ESR, CRP 4. probiotic I reviewed her complex situation today. Her vancomycin therapy will end on 10/05. Her Groshong catheter will need to be removed on 10/05. It appears that she will need orthopedic assessment at for complex left knee reconstruction. documented in this encounter Plan of Treatment Not on file documented as of this encounter Visit Diagnoses Not on filedocumented in this encounter Care Teams Plate Stacker Relationship Specialty Start Date End Date Juan Joés Kendall MD [address] [facility] [address] [place] [phone] PCP - General Family Medicine 12/25/22 Juan José Kendall MD [address] [facility] [address] [place] [phone] Referring Physician Family Medicine 12/25/22 documented as of this encounter
--- OUTSIDE RECORDS SUMMARY | 2024-03-11 09:16 | XMS_ITS | Encounter Summary ---
Author Organization [employer] Address [address] [place] [address] Care Team Providers Care House Supervisor Name Role Phone Juan José Kendall MD Primary Care Provider +- [phone] Juan José Kendall MD Unavailable [phone] Encounter Details Date Type Department Care Team (Late st Contact Info) Description 10/03/2018 Transcribed Document [facility] [place] Family Medicine Count includes the [facility] [place] [address] ProviderLaurie MD [address] [place] [address] Social History Tobacco Use Types Packs/Day Years Used Date Smoking Tobacco: Never Assessed Comments Unknown Sex and Gender Information Value Date Recorded Sex Assigned at Not on file Legal Sex Female 2:23 PM CDT Gender Identity Not on file Sexual Orientation Not on file documented as of this encounter Miscellaneous Notes * Cerner Conversion Note - Laurie ProviderMD - 10/03/2018 3:00 PM CDT Pain Assessment Entered On: 10/03/2018 17:35 EDT Performed On: 10/03/2018 17:41 EDT by Lisa Haile RN Intervention Information: acetaminophen Performed by Lisa Haile RN on 10/03/2018 16:41:00 EDT acetaminophen,500mg Oral Pain Assessment Pain Assessment : Follow-up assessment Pain Scale Goal : 3 Pain Scale Used : 0-10 Scale Pain Improved by Intervention : Yes Pain Comment : patient denies pain Lisa Haile RN - 10/03/2018 17:35 EDT Pain Scale Intensity : 0 Lisa Haile RN - 10/03/2018 17:35 EDT Image 4 - Images currently included in the form version of this document have not been included in the text rendition version of the form. documented in this encounter Plan of Treatment Not on file documented as of this encounter Visit Diagnoses Not on filedocumented in this encounter Care Teams House Supervisor Relationship Specialty Start Date End Date Juan José Kendall MD [address] [place] [address] [address] [place] [phone] PCP - General Family Medicine 12/25/22 Juan José Kendall MD [address] [place] [address] [address] [place] [phone] Referring Physician Family Medicine 12/25/22 documented as of this encounter
--- OUTSIDE RECORDS SUMMARY | 2024-03-11 09:16 | XMS_ITS | Encounter Summary ---
Author Organization [employer] Address [address] [place] [address] Care Team Providers Care Sheet Fed Printer Name Role Phone Juan José Kendall MD Primary Care Provider + [phone] Juan José Kendall MD Unavailable [phone] Encounter Details Date Type Department Care Team (Late st Contact Info) Description 09/30/2018 Transcribed Document [facility] [place] [facility] [place] [address] ProviderLaurie MD [address] [place] [address] Social History Tobacco Use Types Packs/Day Years Used Date Smoking Tobacco: Never Assessed Comments Unknown Sex and Gender Information Value Date Recorded Sex Assigned at Not on file Legal Sex Female 2:23 PM CDT Gender Identity Not on file Sexual Orientation Not on file documented as of this encounter Miscellaneous Notes * Cerner Conversion Note - Laurie Garcia MD - 09/30/2018 9:48 PM CDT Patient: TRUDI BLAIR Age: 63 years Sex: Female : 1955 Associated Diagnoses: 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 and spacer antibiotic placement; Acute kidney injury; Hypertension; Hypercholesterolemia with endogenous hyperglyceridemia; GERD (gastroesophageal reflux disease); Obstructive sleep apnea; Morbid obesity with BMI of 45.0-49.9, adult; MRSA and Enterobacter Bacteremia; Anemia; Left posterior vein thrombosis Author: JONES HIDALGO MD-INT Basic Information awake alert comfortable, asympt. , pain under control, no trouble w. urination. ???[place] removed ???Set on the wheelchair today Review of Systems Constitutional: No fever, No [...] inj 4 mg 2 mL, IV Push, E12IIiv pantoprazole EC 40 mg tab 40 mg [...] Stress incontinence Physical Examination VS/Measurements Vital Measurements 09/30/2018 19:26 EDT Systolic Blood Pressure 148 mmHg HI Diastolic Blood Pressure 68 mmHg Mean Arterial Pressure (MAP)-BMDI 89 Temperature, Fahrenheit 97.8 Deg F Clinical Temperature, C 36.6 Deg C Heart Rate Monitored 79 bpm Respiratory Rate 18 Breaths/Min Oxygen Saturation 99 % General: Alert and oriented, No acute [...] Review / Management Results review: All Results 09/30/2018 5:05 EDT Sodium Level 145 mmol/L Potassium Level 3.5 mmol/L Chloride Level 113 mmol/L HI Carbon Dioxide Level 27 mmol/L Anion Gap 8 LOW Glucose Level 93 mg/dL Blood Urea Nitrogen 21 mg/dL Creatinine Level 1.20 mg/dL HI eGFR 55 mL/min/1.73m2 LOW eGFR NonAfrican 45 mL/min/1.73m2 LOW Bun/Creatinine 17.5 Calcium Level 8.6 mg/dL 09/29/2018 4:38 EDT Sodium Level 144 mmol/L Potassium Level 3.5 mmol/L Chloride Level 112 mmol/L Carbon Dioxide Level 26 mmol/L Anion Gap 10 Glucose Level 92 mg/dL Blood Urea Nitrogen 22 mg/dL Creatinine Level 1.20 mg/dL HI eGFR 55 mL/min/1.73m2 LOW eGFR NonAfrican 45 mL/min/1.73m2 LOW Bun/Creatinine 18.3 Calcium Level 8.8 mg/dL Protein Total 5.5 Gram/dL LOW Albumin Level 2.3 Gram/dL LOW Globulin 3.2 Gram/dL A/G Ratio 0.7 LOW Bilirubin Total 0.4 mg/dL Alk Phos 115 Units/Liter AST 12 Units/Liter ALT 7 Units/Liter LOW WBC 6.2 K/uL RBC 2.81 Million/uL LOW Hgb 8.7 g/dL LOW Hct 26.8 % LOW MCV 95.4 fL HI MCH 31.0 pg MCHC 32.5 Gram/dL Platelet Count 182 K/uL MPV 11.5 fL RDW 17.3 % HI Neut % 63.8 % Neut # 3.93 K/uL Lymph % 17.9 % LOW Lymph # 1.10 x10(3)/uL [place] % 9.1 % HI [place] # 0.56 K/uL Eos % 8.0 % HI Eos # 0.49 x10(3)/uL Baso % 0.7 % Baso # 0.04 x10(3)/uL Slide Review No IG# 0.03 x10(3)/uL IG% 0.50 % . Condition: Stable. Impression and Plan Diagnosis [...] Left posterior vein thrombosis - Admitting, Medical. Course: Plan/ cont. current care, pt/ot, encourage oral fluid intake, nutritional support, encourage use of respirometer, motoring blood pressure, renal function, blood glucose, and urine output. -Continue on IV antibiotics as recommended by infectious disease -Pain control -DVT prophylaxis -Close monitoring fluid and electrolytes -When necessary nebs -Sleep apnea precautions -Fall risk precautions and stress ulcer prophylaxis. documented in this encounter Plan of Treatment Not on file documented as of this encounter Visit Diagnoses Not on filedocumented in this encounter Care Teams Sheet Fed Printer Relationship Specialty Start Date End Date Juan José Kendall MD [address] [place] [facility] [address] [place] [phone] PCP - General Family Medicine 12/25/22 Juan José Kendall MD [address] [place] [facility] [address] [place] [phone] Referring Physician Family Medicine 12/25/22 documented as of this encounter
--- OUTSIDE RECORDS SUMMARY | 2024-03-11 09:16 | XMS_ITS | Encounter Summary ---
Author Organization [employer] Address [address] [place] [address] Care Team Providers Care User Experience Team Lead Name Role Phone Juan José Kendall MD Primary Care Provider + [phone] Juan José Kendall MD Unavailable [phone] Encounter Details Date Type Department Care Team (Late st Contact Info) Description 09/30/2018 Transcribed Document [facility] [place] [address] [place] [address] ProviderLaurie MD [address] [place] [address] Social History Tobacco Use Types Packs/Day Years Used Date Smoking Tobacco: Never Assessed Comments Unknown Sex and Gender Information Value Date Recorded Sex Assigned at Not on file Legal Sex Female 2:23 PM CDT Gender Identity Not on file Sexual Orientation Not on file documented as of this encounter Miscellaneous Notes * Cerner Conversion Note - Historical ProviderMD - 09/30/2018 5:00 PM CDT Chart Check - Review Order Profile Entered On: 09/30/2018 20:26 EDT Performed On: 09/30/2018 17:00 EDT by Renate Wilson RN Chart Check Powerplans Initiated/Discontinued as Appropriate : Yes All Active Orders Reviewed : Yes Renate Wilson RN - 09/30/2018 20:26 EDT documented in this encounter Plan of Treatment Not on file documented as of this encounter Visit Diagnoses Not on filedocumented in this encounter Care Teams User Experience Team Lead Relationship Specialty Start Date End Date Juan José Kendall MD [address] [place] [id number] PCP - General Family Medicine 12/25/22 Juan José Kendall MD [address] [place] [address] Referring Physician Family Medicine 12/25/22 documented as of this encounter
--- OUTSIDE RECORDS SUMMARY | 2024-03-11 09:16 | XMS_ITS | Encounter Summary ---
Author Organization [employer] Address [address] [place] [address] Care Team Providers Care Corn Detasseler Machine Operator Name Role Phone Juan José Kendall MD Primary Care Provider +- [phone] Juan José Kendall MD Unavailable [phone] Encounter Details Date Type Department Care Team (Late st Contact Info) Description 10/02/2018 Transcribed Document [facility] [place] Family Medicine [address] [place] [address] ProviderLaurie MD [address] [place] [id number] Social History Tobacco Use Types Packs/Day Years Used Date Smoking Tobacco: Never Assessed Comments Unknown Sex and Gender Information Value Date Recorded Sex Assigned at Not on file Legal Sex Female 2:23 PM CDT Gender Identity Not on file Sexual Orientation Not on file documented as of this encounter Miscellaneous Notes * Cerner Conversion Note - Laurie ProviderMD - 10/02/2018 3:00 PM CDT Pain Assessment Entered On: 10/02/2018 14:50 EDT Performed On: 10/02/2018 15:01 EDT by ORLY RICHARDS RN Intervention Information: acetaminophen Performed by ORLY RICHARDS RN on 10/02/2018 14:01:00 EDT acetaminophen,500mg Oral Pain Assessment Pain Assessment : Follow-up assessment Pain Scale Goal : 3 Pain Scale Used : 0-10 Scale ORLY RICHARDS RN - 10/02/2018 14:50 EDT Pain Scale Intensity : 5 ORLY RICHARDS RN - 10/02/2018 14:50 EDT Image 4 - Images currently included in the form version of this document have not been included in the text rendition version of the form. documented in this encounter Plan of Treatment Not on file documented as of this encounter Visit Diagnoses Not on filedocumented in this encounter Care Teams Corn Detasseler Machine Operator Relationship Specialty Start Date End Date Juan José Kendall MD [address] [facility] [address] [place] [id number] PCP - General Family Medicine 12/25/22 Juan José Kendall MD [address] [place] [facility] [address] [place] [phone] Referring Physician Family Medicine 12/25/22 documented as of this encounter
--- OUTSIDE RECORDS SUMMARY | 2024-03-11 09:16 | XMS_ITS | Encounter Summary ---
Author Organization [employer] Address [address] [place] [address] Care Team Providers Care Fondant Puff Maker Name Role Phone Juan José Kendall MD Primary Care Provider + [phone] Juan José Kendall MD Unavailable [phone] Encounter Details Date Type Department Care Team (Late st Contact Info) Description 10/01/2018 Transcribed Document [facility] [place] [address] ProviderLaurie MD [address] [place] [address] Social History Tobacco Use Types Packs/Day Years Used Date Smoking Tobacco: Never Assessed Comments Unknown Sex and Gender Information Value Date Recorded Sex Assigned at Not on file Legal Sex Female 2:23 PM CDT Gender Identity Not on file Sexual Orientation Not on file documented as of this encounter Miscellaneous Notes * Cerner Conversion Note - Laurie Garcia MD - 10/01/2018 11:44 PM CDT Patient: TRUDI BLAIR Age: 63 [...] pain under control, no trouble w. urination. Review of Systems Constitutional: No fever, No [...] Alert and oriented X4. Health Status Allergies: Allergic Reactions (Selected) Severity Not Documented Biaxin- Acid reflux., Allergies (1) Active Reaction Biaxin Acid reflux [...] inj 4 mg 2 mL, IV Push, [id number] pantoprazole EC 40 mg tab 40 mg [...] Stress incontinence Physical Examination VS/Measurements Vital Measurements 10/01/2018 23:00 EDT Systolic Blood Pressure 135 mmHg Diastolic Blood Pressure 64 mmHg Temperature Source Oral Temperature Mode Fahrenheit Temperature, Fahrenheit 98.2 Deg F Clinical Temperature, C 36.8 Deg C Heart Rate Monitored 87 bpm Respiratory Rate 20 Breaths/Min Oxygen Saturation [...] Appropriate mood & affect. Review / Management Condition: Stable. Impression and Plan Diagnosis Left [...] renal function, blood glucose, and urine output. cont on IV antibiotics .pain control .DVT prophylaxis . documented in this encounter Plan of Treatment Not on file documented as of this encounter Visit Diagnoses Not on filedocumented in this encounter Care Teams Fondant Puff Maker Relationship Specialty Start Date End Date Juan José Kendall MD [address] [facility] [address] [place] [address] PCP - General Family Medicine 12/25/22 Juan José Kendall MD [address] [place] [facility] [address] [place] [phone] Referring Physician Family Medicine 12/25/22 documented as of this encounter
--- OUTSIDE RECORDS SUMMARY | 2024-03-11 09:16 | XMS_ITS | Encounter Summary ---
Author Organization [employer] Address [address] [place] [address] Care Team Providers Care Jewel Gauger Name Role Phone Juan José Kendall MD Primary Care Provider + [phone] Juan José Kendall MD Unavailable [phone] Encounter Details Date Type Department Care Team (Late st Contact Info) Description 09/30/[address] [facility] [place] [address] ProviderLaurie MD [address] [place] [address] Social History Tobacco Use Types Packs/Day Years Used Date Smoking Tobacco: Never Assessed Comments Unknown Sex and Gender Information Value Date Recorded Sex Assigned at Not on file Legal Sex Female 2:23 PM CDT Gender Identity Not on file Sexual Orientation Not on file documented as of this encounter Miscellaneous Notes * Cerner Conversion Note - Laurie ProviderMD - 09/30/2018 10:10 AM CDT Spiritual Care Short Form Entered On: 09/30/2018 14:46 EDT Performed On: 09/30/2018 10:10 EDT by MOHINDER MARTINES General Information, Spiritual Care Spiritual Care Referred by : Sausage Inspector initiated Ministry Provided to : Patient, Family/Significant other Intervention/Comment/Summary Points : Routine visit; Provided pastoral prayer Nondenominational Preference : Episcopal MOHINDER MARTINES - 09/30/2018 14:46 EDT documented in this encounter Plan of Treatment Not on file documented as of this encounter Visit Diagnoses Not on filedocumented in this encounter Care Teams Jewel Gauger Relationship Specialty Start Date End Date Juan José Kendall MD [address] [place] [facility] [address] [place] [phone] PCP - General Family Medicine 12/25/22 Juan José Kendall MD [address] [place] [facility] [address] [place] [phone] Referring Physician Family Medicine 12/25/22 documented as of this encounter
--- OUTSIDE RECORDS SUMMARY | 2024-03-11 09:16 | XMS_ITS | Encounter Summary ---
Author Organization [employer] Address [address] [place] [address] Care Team Providers Care Quality Compliance Coordinator Name Role Phone Juan José Kendall MD Primary Care Provider +- [phone] Juan José Kendall MD Unavailable [phone] Encounter Details Date Type Department Care Team (Late st Contact Info) Description 10/03/2018 Transcribed Document [facility] [place] [facility] [place] [address] ProviderLaurie MD [address] [place] [address] Social History Tobacco Use Types Packs/Day Years Used Date Smoking Tobacco: Never Assessed Comments Unknown Sex and Gender Information Value Date Recorded Sex Assigned at Not on file Legal Sex Female 2:23 PM CDT Gender Identity Not on file Sexual Orientation Not on file documented as of this encounter Miscellaneous Notes * Cerner Conversion Note - Laurie ProviderMD - 10/03/2018 3:00 AM CDT Pain Assessment Entered On: 10/03/2018 5:07 EDT Performed On: 10/03/2018 5:04 EDT by FRANCISCO MOREJON RN Intervention Information: acetaminophen Performed by FRANCISCO MOREJON RN on 10/03/2018 04:04:00 EDT acetaminophen,500mg Oral Pain Assessment Pain Assessment : Follow-up assessment Pain Scale Goal : 3 Pain Scale Used : 0-10 Scale FRANCISCO MOREJON RN - 10/03/2018 5:07 EDT Pain Scale Intensity : 0 FRANCISCO MOREJON RN - 10/03/2018 5:07 EDT Image 4 - Images currently included in the form version of this document have not been included in the text rendition version of the form. documented in this encounter Plan of Treatment Not on file documented as of this encounter Visit Diagnoses Not on filedocumented in this encounter Care Teams Quality Compliance Coordinator Relationship Specialty Start Date End Date Juan José Kendall MD [address] [facility] [address] [place] [id number] PCP - General Family Medicine 12/25/22 Juan José Kendall MD [address] [place] [facility] [address] [place] [phone] Referring Physician Family Medicine 12/25/22 documented as of this encounter
--- OUTSIDE RECORDS SUMMARY | 2024-03-11 09:16 | XMS_ITS | Encounter Summary ---
Author Organization [employer] Address [address] [place] [address] Care Team Providers Care Mounted Police Officer Name Role Phone Juan José Kendall MD Primary Care Provider +- [phone] Juan José Kendall MD Unavailable [phone] Encounter Details Date Type Department Care Team (Late st Contact Info) Description 09/30/2018 Transcribed Document [facility] [place] [facility] [place] [address] ProviderLaurie MD [address] [place] [address] Social History Tobacco Use Types Packs/Day Years Used Date Smoking Tobacco: Never Assessed Comments Unknown Sex and Gender Information Value Date Recorded Sex Assigned at Not on file Legal Sex Female 2:23 PM CDT Gender Identity Not on file Sexual Orientation Not on file documented as of this encounter Miscellaneous Notes * Cerner Conversion Note - Historical ProviderMD - 09/30/2018 3:00 PM CDT Pain Assessment Entered On: 09/30/2018 20:27 EDT Performed On: 09/30/2018 15:05 EDT by Renate Wilson RN Intervention Information: acetaminophen Performed by Renate Wilson RN on 09/30/2018 14:05:00 EDT acetaminophen,500mg Oral Pain Assessment Pain Assessment : Follow-up assessment Pain Scale Goal : 3 Pain Scale Used : 0-10 Scale Renate Wilson RN - 09/30/2018 20:26 EDT Pain Scale Intensity : 2 Renate Wilson RN - 09/30/2018 20:26 EDT Image 4 - Images currently included in the form version of this document have not been included in the text rendition version of the form. documented in this encounter Plan of Treatment Not on file documented as of this encounter Visit Diagnoses Not on filedocumented in this encounter Care Teams Mounted Police Officer Relationship Specialty Start Date End Date Juan José Kendall MD [address] [facility] [address] [place] [phone] PCP - General Family Medicine 12/25/22 Juan José Kendall MD [address] [place] [address] [address] [place] [phone] Referring Physician Family Medicine 12/25/22 documented as of this encounter
--- OUTSIDE RECORDS SUMMARY | 2024-03-11 09:16 | XMS_ITS | Encounter Summary ---
Author Organization [employer] Address [address] [place] [address] Care Team Providers Care Sub Plant Manager Name Role Phone Juan José Kendall MD Primary Care Provider +- [phone] Juan José Kendall MD Unavailable [phone] Encounter Details Date Type Department Care Team (Late st Contact Info) Description 10/01/2018 Transcribed Document [facility] [place] [address] ProviderLaurie MD [address] [place] [phone] Social History Tobacco Use Types Packs/Day Years Used Date Smoking Tobacco: Never Assessed Comments Unknown Sex and Gender Information Value Date Recorded Sex Assigned at Not on file Legal Sex Female 2:23 PM CDT Gender Identity Not on file Sexual Orientation Not on file documented as of this encounter Miscellaneous Notes * Cerner Conversion Note - Historical ProviderMD - 10/01/2018 2:15 PM CDT Patient: TRUDI BLAIR Age: 63 years Sex: Female : 1955 Associated Diagnoses: None Author: ADAMARIS ENCARNACION, PharmD Consult: vancomycin Consulting physician: Dr. Tavares Indication: [...] 139.5 kg DBW: 91.2 kg Labs: OCT 01 05:31 143 H 113 16 / 93 3.5 26 H 1.20 \ Labs (Last four charted values) WBC 6.2 [...] 17) 0.7 (EDGARD 14) PTN L 5.5 (SEP 29) L 5.3 (EDGARD 24) L 5.0 (EDGARD 17) L 5.0 (EDGARD 14) ALB L 2.3 (SEP 27) L 2.2 (EDGARD 24) L 2.2 (EDGARD 17) L 2.3 (EDGARD 14) Lipase 191 (SEP 23) Allergies: biaxin I/O: 100 / x2 voids Estimated CrCl: 65-70 mL/min Vitals: Vitals Signs (last 24 hrs) Last Charted Minimum Maximum Temp 98.3 (OCT 01 07:18) 97.8 (SEP 30 19:26) 98.2 (SEP 30 15:00) Apical HR 79 (OCT 01 09:10) 79 (OCT 01 09:10) 79 (OCT 01 09:10) Mon HR 79 (OCT 01 07:18) 76 (SEP 30 15:00) 86 (SEP 30 23:12) Resp Rate 18 (SEP 30 23:12) 18 (SEP 30 19:26) 19 (SEP 30 15:00) SBP H 164 (OCT 01 09:10) H 144 (SEP 30 23:12) H 164 (OCT 01 09:10) DBP L 58 (OCT 01 09:10) L 58 (OCT 01 09:10) 68 (SEP 30 15:00) MAP 88 (OCT 01 07:18) 80 (SEP 30 23:12) 89 (SEP 30 19:26) SpO2 98 (OCT 01 07:18) 97 (SEP 30 15:00) 99 (SEP 30 19:26) Cultures: 08/10 blood: MRSA 08/10 urine: Enterococcus 08/19 blood: Enterococcus (vanc S) 08/19 L leg wound: S. epi, MRSA Current antibiotics: Vancomycin 500mg IV q24h (start date 09/14, 09/30 = day 17) Previous antibiotics: Ceftriaxone (08/30-09/02) Ertapenem (08/30-08/31) Daptomycin (08/30-09/14) Vancomycin dosing history: Vancomycin 1250mg IV [...] time A/P: 1. Vancomycin trough level therapeutic . Continue vancomycin 500mg IV q24h. No plans to recheck trough level unless duration extended beyond 10/05. 2. Monitor renal function closely. Some ongoing PILY attributed to sepsis from admission. BMP at least twice weekly on vancomycin. SCr stable at 1.2. 3. Abx planned until 10/05 per ID. Will follow, Adamaris Encarnacion PharmD, BCPS [phone] Electronically signed by Aleks [facility] Conversion Detail Supervisor Cerner at 07/24/2022 3:40 PM CDT documented in this encounter Plan of Treatment Not on file documented as of this encounter Visit Diagnoses Not on filedocumented in this encounter Care Teams Sub Plant Manager Relationship Specialty Start Date End Date Juan José Kendall MD [address] [place] [address] [address] [place] [phone] PCP - General Family Medicine 12/25/22 [place] [address] [place] [address] [address] [place] [phone] Referring Physician Family Medicine 12/25/22 documented as of this encounter
--- OUTSIDE RECORDS SUMMARY | 2024-03-11 09:16 | XMS_ITS | Encounter Summary ---
Author Organization [employer] Address [address] [place] [address] Care Team Providers Care Marketing Administrative Assistant Name Role Phone Juan José Kendall MD Primary Care Provider +- [phone] Juan José Kendall MD Unavailable [phone] Encounter Details Date Type Department Care Team (Late st Contact Info) Description 09/30/2018 Transcribed Document [facility] [place] [facility] [place] [address] ProviderLaurie MD [address] [place] [phone] Social History Tobacco Use Types Packs/Day Years Used Date Smoking Tobacco: Never Assessed Comments Unknown Sex and Gender Information Value Date Recorded Sex Assigned at Not on file Legal Sex Female 2:23 PM CDT Gender Identity Not on file Sexual Orientation Not on file documented as of this encounter Miscellaneous Notes * Cerner Conversion Note - Historical ProviderMD - 09/30/2018 9:00 AM CDT Pain Assessment Entered On: 09/30/2018 20:27 EDT Performed On: 09/30/2018 10:18 EDT by Renate Wilson RN Intervention Information: acetaminophen Performed by Renate Wilson RN on 09/30/2018 09:18:00 EDT acetaminophen,500mg Oral Pain Assessment Pain Assessment : Follow-up assessment Pain Scale Goal : 3 Pain Scale Used : 0-10 Scale Renate Wilson RN - 09/30/2018 20:26 EDT Pain Scale Intensity : 4 Renate Wilson RN - 09/30/2018 20:26 EDT Image 4 - Images currently included in the form version of this document have not been included in the text rendition version of the form. documented in this encounter Plan of Treatment Not on file documented as of this encounter Visit Diagnoses Not on filedocumented in this encounter Care Teams Marketing Administrative Assistant Relationship Specialty Start Date End Date Juan José Kendall MD [address] [facility] [address] [place] [phone] PCP - General Family Medicine 12/25/22 Juan José Kendall MD [address] [place] [address] [address] [place] [phone] Referring Physician Family Medicine 12/25/22 documented as of this encounter
--- OUTSIDE RECORDS SUMMARY | 2024-03-11 09:16 | XMS_ITS | Encounter Summary ---
Author Organization [employer] Address [address] [place] [address] Care Team Providers Care Screw Machine Operator Single Spindle Name Role Phone Juan José Kendall MD Primary Care Provider + [phone] Juan José Kendall MD Unavailable [phone] Encounter Details Date Type Department Care Team (Late st Contact Info) Description 10/02/2018 Transcribed Document [facility] [place] Family Medicine [facility] [place] [address] ProviderLaurie MD [address] [place] [address] Social History Tobacco Use Types Packs/Day Years Used Date Smoking Tobacco: Never Assessed Comments Unknown Sex and Gender Information Value Date Recorded Sex Assigned at Not on file Legal Sex Female 2:23 PM CDT Gender Identity Not on file Sexual Orientation Not on file documented as of this encounter Miscellaneous Notes * Cerner Conversion Note - Historical ProviderMD - 10/02/2018 6:00 PM CDT Patch Check Entered On: 10/02/2018 18:51 EDT Performed On: 10/02/2018 18:00 EDT by ORLY RICHARDS, RN Patch Check Patch Check Result : Yes Patch Check - Type of Patch : scopolamine (Transderm-Scop) ORLY RICHARDS, RN - 10/02/2018 18:50 EDT Electronically signed by Aleks [facility] Conversion Loader Engineer Cerner at 07/24/2022 3:32 PM CDT documented in this encounter Plan of Treatment Not on file documented as of this encounter Visit Diagnoses Not on filedocumented in this encounter Care Teams Screw Machine Operator Single Spindle Relationship Specialty Start Date End Date Juan José Kendall MD [address] [place] [phone] PCP - General Family Medicine 12/25/22 Juan José Kendall MD [address] [place] [phone] Referring Physician Family Medicine 12/25/22 documented as of this encounter
--- OUTSIDE RECORDS SUMMARY | 2024-03-11 09:16 | XMS_ITS | Encounter Summary ---
Author Organization [employer] Address [address] [place] [address] Care Team Providers Care Statement Request Clerk Name Role Phone Juan José Kendall MD Primary Care Provider + [phone] Juan José Kendall MD Unavailable [phone] Encounter Details Date Type Department Care Team (Late st Contact Info) Description 10/02/2018 Transcribed Document [facility] [place] [facility] [place] [address] ProviderLaurie MD [address] [place] [address] Social History Tobacco Use Types Packs/Day Years Used Date Smoking Tobacco: Never Assessed Comments Unknown Sex and Gender Information Value Date Recorded Sex Assigned at Not on file Legal Sex Female 2:23 PM CDT Gender Identity Not on file Sexual Orientation Not on file documented as of this encounter Miscellaneous Notes * Cerner Conversion Note - Historical ProviderMD - 10/02/2018 9:00 PM CDT Patch Check Entered On: 10/02/2018 22:03 EDT Performed On: 10/02/2018 21:00 EDT by FRANCISCO MOREJON RN Patch Check Patch Check Result : Yes Patch Check - Type of Patch : scopolamine (Transderm-Scop) FRANCISCO MOREJON RN - 10/02/2018 22:03 EDT Electronically signed by Aleks [facility] Conversion Cherry Cutter Cerner at 07/24/2022 3:50 PM CDT documented in this encounter Plan of Treatment Not on file documented as of this encounter Visit Diagnoses Not on filedocumented in this encounter Care Teams Statement Request Clerk Relationship Specialty Start Date End Date Juan José Kendall MD [address] [place] [phone] PCP - General Family Medicine 12/25/22 Juan José Kendall MD [address] [place] [phone] Referring Physician Family Medicine 12/25/22 documented as of this encounter
--- OUTSIDE RECORDS SUMMARY | 2024-03-11 09:16 | XMS_ITS | Encounter Summary ---
Author Organization [employer] Address [address] [facility] [place] [address] Care Team Providers Care Operating Engineer Apprentice Name Role Phone Juan José Kendall MD Primary Care Provider +- [phone] Juan José Kendall MD Unavailable [phone] Encounter Details Date Type Department Care Team (Late st Contact Info) Description 09/30/2018 Transcribed Document [facility] Family Medicine [place] [address] ProviderLaurie MD [address] [place] [id number] Social History Tobacco Use Types Packs/Day Years Used Date Smoking Tobacco: Never Assessed Comments Unknown Sex and Gender Information Value Date Recorded Sex Assigned at Not on file Legal Sex Female 2:23 PM CDT Gender Identity Not on file Sexual Orientation Not on file documented as of this encounter Miscellaneous Notes * Cerner Conversion Note - Laurie ProviderMD - 09/30/2018 9:00 PM CDT Pain Assessment Entered On: 09/30/2018 22:17 EDT Performed On: 09/30/2018 22:46 EDT by Joanne Norton RN Intervention Information: acetaminophen Performed by Joanne Norton RN on 09/30/2018 21:46:00 EDT acetaminophen,500mg Oral Pain Assessment Pain Assessment : Follow-up assessment Pain Scale Goal : 3 Pain Scale Used : 0-10 Scale Joanne Norton RN - 09/30/2018 22:17 EDT Pain Scale Intensity : 0 Joanne Norton RN - 09/30/2018 22:17 EDT Image 4 - Images currently included in the form version of this document have not been included in the text rendition version of the form. documented in this encounter Plan of Treatment Not on file documented as of this encounter Visit Diagnoses Not on filedocumented in this encounter Care Teams Operating Engineer Apprentice Relationship Specialty Start Date End Date Juan José Kendall MD [address] [facility] [address] [place] [id number] PCP - General Family Medicine 12/25/22 Juan José Kendall MD [address] [facility] [address] [place] [id number] Referring Physician Family Medicine 12/25/22 documented as of this encounter
--- OUTSIDE RECORDS SUMMARY | 2024-03-11 09:16 | XMS_ITS | Encounter Summary ---
Author Organization [employer] Address [address] [place] [address] Care Team Providers Care Varitype Operator Name Role Phone Juan José Kendall MD Primary Care Provider + [phone] Juan José Kendall MD Unavailable [phone] Encounter Details Date Type Department Care Team (Late st Contact Info) Description 09/30/2018 Transcribed Document [facility] [place] [facility] [place] [address] ProviderLaurie MD [address] [place] [address] Social History Tobacco Use Types Packs/Day Years Used Date Smoking Tobacco: Never Assessed Comments Unknown Sex and Gender Information Value Date Recorded Sex Assigned at Not on file Legal Sex Female 2:23 PM CDT Gender Identity Not on file Sexual Orientation Not on file documented as of this encounter Miscellaneous Notes * Cerner Conversion Note - Historical ProviderMD - 09/30/2018 6:00 PM CDT Patch Check Entered On: 09/30/2018 20:26 EDT Performed On: 09/30/2018 18:00 EDT by Renate Wilson RN Patch Check Patch Check Result : Yes Patch Check - Type of Patch : scopolamine (Transderm-Scop) Renate Wilson RN - 09/30/2018 20:26 EDT documented in this encounter Plan of Treatment Not on file documented as of this encounter Visit Diagnoses Not on filedocumented in this encounter Care Teams Varitype Operator Relationship Specialty Start Date End Date Juan José Kendall MD [address] [place] [id number] PCP - General Family Medicine 12/25/22 Juan José Kendall MD [address] [place] [address] Referring Physician Family Medicine 12/25/22 documented as of this encounter
--- OUTSIDE RECORDS SUMMARY | 2024-03-11 09:16 | XMS_ITS | Encounter Summary ---
Author Organization [employer] Address [address] [place] [address] Care Team Providers Care Timber Bucker Name Role Phone Juan José Kendall MD Primary Care Provider +- [phone] Juan José Kendall MD Unavailable [phone] Encounter Details Date Type Department Care Team (Late st Contact Info) Description 09/30/2018 Transcribed Document [place] [facility] [place] [address] ProviderLaurie MD [address] [place] [id number] Social History Tobacco Use Types Packs/Day Years Used Date Smoking Tobacco: Never Assessed Comments Unknown Sex and Gender Information Value Date Recorded Sex Assigned at Not on file Legal Sex Female 2:23 PM CDT Gender Identity Not on file Sexual Orientation Not on file documented as of this encounter Miscellaneous Notes * Cerner Conversion Note - Historical ProviderMD - 09/30/2018 5:29 PM CDT Patient: TRUDI BLAIR Age: 63 years Sex: Female : 1955 Associated Diagnoses: None Author: AMRITA TAVARES MD Abx: CC: left leg pain Subjective: 08/30/18: Trudi Blair is a 63 yo woman with pmh of GERD, HTN, HLD, and left TKA in 2017 who was doing well until she had a left patellar tendon rupture in 06/2018 and was taken to the OR by Dr. Guerrero for tendon repair. She was more recently admitted to [facility] x2 earlier this month on 08/16 [...] getting wound care. She was transferred to [facility] today for a higher level of care. [...] the antibiotics without any adverse side effects. Abrahan removed yesterday at her incision site remains intact without any drainage or redness. She is overall doing very well. No fevers. ROS: As above Past Medical History: Arthritis Back pain GERD HLD NUVIA HTN Stress incontinence Past Surgical History: Left TKA, 2017 left patellar tendon repair, 06/2018 lumbar fusion hysterectomy right TKA right patellar tendon repair Family History: CAD HTN Cancer Social History: . lives in [place]. No tobacco, ETOH, or illicit drug use. Social & Psychosocial Habits Alcohol 06/23/2018 Alcohol Use History, Social Habits No Substance Abuse 06/23/2018 Recreational Drug Use History No Tobacco 06/23/2018 Smoking Status Never (less than 100 in l Smokeless Tobacco Status Never Objective: Vitals Signs (last 24 hrs) Last Charted Minimum Maximum Temp 98.2 (SEP 30 15:00) 98.2 (SEP 30 15:00) 99.4 (SEP 29 19:00) Apical HR 81 (SEP 30 09:18) 81 (SEP 30 09:18) 81 (SEP 30 09:18) Mon HR 76 (SEP 30 15:00) 75 (SEP 29 19:00) 87 (SEP 29 22:00) Resp Rate 19 (SEP 30 15:00) 18 (SEP 29 19:00) 19 (SEP 30 15:00) SBP H 154 (SEP 30 15:00) H 149 (SEP 29 19:00) H 154 (SEP 30 15:00) DBP 68 (SEP 30 15:00) 64 (SEP 29 22:00) 76 (SEP 30 07:00) SpO2 97 (SEP 30 15:00) 96 (SEP 29 19:00) 97 (SEP 29:00) PE: General: patient is alert and in no acute distress. morbidly obese HEENT: sclera white without conjunctival injection. No erythema, exudate or ulceration. No labial ulcers Lungs: Clear to auscultation bilaterally without wheezes, rales, or rhonchi. Normal respiratory effort Cardiovascular: normal S1/S2; RRR, no m/r/g. Abdomen: soft, mild epigastric abdominal discomfort, non-distended, positive bowel sounds throughout. Lower extremity: No cyanosis, clubbing or edema. wound VAC has been removed and dressing in place. -did not visualize left lower extremity incision site today. Neuro: Alert and oriented x3. No focal deficits. Skin: Without rash; c/d/i groshong cath site over right chest is without erythema LABS: Labs (Last four charted values) WBC 6.2 (SEP 29) 5.8 (SEP 24) 5.7 (EDGARD 17) 7.0 (EDGARD 14) HB L 8.7 (SEP 29) L 8.3 (EDGARD 24) L 8.2 (EDGARD 17) L 8.6 (EDGARD 14) HCT L 26.8 (EDGARD 27) L 26.3 (EDGRAD 24) L 26.3 (EDGARD 17) L 27.2 (EDGARD 14) Plt 182 (EDGARD 28) 182 (EDGARD 27) 180 (EDGARD 26) 186 (EDGARD 24) Na 145 (EDGARD 28) 144 (EDGARD 27) 143 (EDGARD 26) 144 (EDGARD 25) K 3.5 (EDGARD 28) 3.5 (EDGARD 27) L 3.4 (EDGARD 26) 3.5 (EDGARD 25) Cl H 113 (EDGARD 28) 112 (EDGARD 27) H 113 (EDGARD 26) H 114 (EDGARD 25) CO2 27 (EDGARD 28) 26 (EDGARD 27) 25 (EDGARD 26) 24 (EDGARD 25) BUN 21 (EDGARD 28) 22 (EDGARD 27) 15 (EDGARD 26) 16 (EDGARD 25) Cr H 1.20 (EDGARD 28) H 1.20 (EDGARD 27) H 1.20 (EDGARD 26) H 1.20 (EDGARD 25) Glu R 93 (EDGARD 28) 92 (EDGARD 27) 90 (EDGARD 26) 88 (EDGARD 25) Ca 8.6 (EDGARD 28) 8.8 (EDGARD 27) 8.4 (EDGARD 26) 8.5 (EDGARD 25) AST 12 (EDGARD 27) 14 (EDGARD 24) [...] L 5.0 (EDGARD 14) ALB L 2.3 (EDGARD 27) L 2.2 (EDGARD 24) L 2.2 (EDGARD 17) L 2.3 (EDGARD 14) Lipase 191 (EDGARD 21) *labs (PowerNote only) in insert template MICRO: [...] PICC removal 08/31. s/p groshong cath placement --diarrhea-we'll need to monitor. Added probiotic. improved. unlikely C diff -nausea- still having some mild nausea -abdominal pain- mild epigastric discomfort. unclear etiology Plan: 1. Continue IV vancomycin with PK dosing consultation and close monitoring of renal function. Anticipated stop date is 10/05/18. 2 Weekly Groshong catheter dressing changes. will need Groshong catheter removed after her antibiotic course ends (prior to discharge) 3. Weekly CBC with differential, CMP, ESR, CRP 4. probiotic I discussed with her today Dr. Zechariah Tavares will be covering for me starting tomorrow. I will be off over the weekend and next week. documented in this encounter Plan of Treatment Not on file documented as of this encounter Visit Diagnoses Not on filedocumented in this encounter Care Teams Timber Bucker Relationship Specialty Start Date End Date Juan José Kendall MD [address] [facility] [address] [place] [phone] PCP - General Family Medicine 12/25/22 Juan José Kendall MD [address] [place] [facility] [address] [place] [phone] Referring Physician Family Medicine 12/25/22 documented as of this encounter
--- OUTSIDE RECORDS SUMMARY | 2024-03-11 09:16 | XMS_ITS | Encounter Summary ---
Author Organization [employer] Address [address] [place] [address] Care Team Providers Care Button Cutting Machine Operator Name Role Phone Juan José Kendall MD Primary Care Provider +- [phone] Juan José Kendall MD Unavailable [phone] Encounter Details Date Type Department Care Team (Late st Contact Info) Description 09/29/2018 Transcribed Document [facility] [place] [facility] [address] ProviderLaurie MD [address] [place] [address] Social History Tobacco Use Types Packs/Day Years Used Date Smoking Tobacco: Never Assessed Comments Unknown Sex and Gender Information Value Date Recorded Sex Assigned at Not on file Legal Sex Female 2:23 PM CDT Gender Identity Not on file Sexual Orientation Not on file documented as of this encounter Miscellaneous Notes * Cerner Conversion Note - Laurie ProviderMD - 09/29/2018 9:00 AM CDT Pain Assessment Entered On: 09/29/2018 12:22 EDT Performed On: 09/29/2018 10:53 EDT by Nanda Don, SPECIALIST FIELD ENGINEER-STUDENT NURSE Intervention Information: acetaminophen Performed by FRANTZ BROWN, RN on 09/29/2018 09:53:00 EDT acetaminophen,500mg Oral Pain Assessment Location : Knee, left FRANTZ BROWN, RN - 09/29/2018 12:23 EDT Pain Assessment : Follow-up assessment Pain Scale Goal : 3 Nanda Don SPECIALIST FIELD ENGINEER-STUDENT NURSE - 09/29/2018 12:21 EDT documented in this encounter Plan of Treatment Not on file documented as of this encounter Visit Diagnoses Not on filedocumented in this encounter Care Teams Button Cutting Machine Operator Relationship Specialty Start Date End Date Juan José Kendall MD [address] [facility] [facility] [address] [place] [id number] PCP - General Family Medicine 12/25/22 Juan José Kendall MD [address] [facility] [address] [place] [phone] Referring Physician Family Medicine 12/25/22 documented as of this encounter
--- OUTSIDE RECORDS SUMMARY | 2024-03-11 09:16 | XMS_ITS | Encounter Summary ---
Author Organization [employer] Address [address] [place] [address] Care Team Providers Care Jet Piercer Operator Name Role Phone Juan José Kendall MD Primary Care Provider +- [phone] Juan José Kendall MD Unavailable [phone] Encounter Details Date Type Department Care Team (Late st Contact Info) Description 09/30/2018 Transcribed Document [facility] [place] Family Medicine [address] [place] [address] ProviderLaurie MD [address] [place] [address] Social History Tobacco Use Types Packs/Day Years Used Date Smoking Tobacco: Never Assessed Comments Unknown Sex and Gender Information Value Date Recorded Sex Assigned at Not on file Legal Sex Female 2:23 PM CDT Gender Identity Not on file Sexual Orientation Not on file documented as of this encounter Miscellaneous Notes * Cerner Conversion Note - Historical ProviderMD - 09/30/2018 3:00 AM CDT Nutrition Assessment Entered On: 09/30/2018 11:46 EDT Performed On: 09/30/2018 14:57 EDT by Nery Mckee Moisture Machine Tender Nutrition Assessment Current Nutrition Regimen Comment : 09/30: pt reports appetite remains the same from last RD visit-states she is drinking ensure w/dinner and is getting tired of fruit punch simón. RD encouraged supplement use and pt agreeable to unflavored simón. 09/23: RD ordered new wt. Pt states poor appetite but is drinking ensure and simón. Pt requesting ensure w/breakfast only. Pt also confirmed preferred flavors and RD confirmed in health touch. Dx: sepsis, left prosthetic knee infection, prolonged IV abx PMH: GERD, high cholesterol, HTN, morbid obesity Labs: Cr 1.2 Meds: Statin, heparin, Zofran, KCl, florastor, abx, prn pain Skin: L knee medial +NPWT, bilat medial upper thighs stage 1, left posterior heel stage 1; anasarca, 1+ trace edema GI: LBM 09/28, active BS Diet: Regular, Ensure Enlive (Dinner), Simón BID Intake: 58% x 3 meals, no supplements documented Ht: 168cm (5'6) Wt: 140kg/308#, no new wt (09/12), no new wt (09/16), no new wt (09/23), 130kg/286# (09/30) Wt Hx: 265# (06/23), 123kg/270# (08/30/18) Nery Mckee Dietician - 09/30/2018 14:56 EDT Nutrition Assessment Reason : Follow Up Nery Mckee Dietician - 09/30/2018 11:45 EDT Nutrition Diagnoses Nutrient Intake : Increased nutrient needs Nutrient Intake Related to : skin integrity Nutrient Intake As Evidenced by : L knee medial +NPWT, left heel unstageable, bilat medial upper thighs stage 1, left posterior heel stage 2 Nutrient Intake Status : Active Increased Nutrient Needs Comment : protein, kcal Nery Mckee Dietician - 09/30/2018 11:45 EDT Nutrition Interventions Meals and Snacks : General/Healthful diet Nutrition Supplement Therapy : Commercial beverage Nery Mckee Dietician - 09/30/2018 11:45 EDT Monitoring/Evaluation Energy Intake : Total energy intake Protein Intake : Total protein Weight Status : Weight Maintanence Gastrointestinal Function : Bowel Function Integumentary : Pressure Ulcer Status, Wound Status Nery Mckee Dietician - 09/30/2018 11:45 EDT Nutrition Recommendations Dietitian Recommendations : 1. Continue current diet w/ Ensure Enlive daily and Simón BID - encourage supplement use. Goal: Po intake>50%, supplement use 2. Obtain wt weekly. Goal: no signficant unintended wt changes, beneficial wt loss encouraged Nutrition Care Level : Moderate Nery Mckee Dietician - 09/30/2018 11:45 EDT documented in this encounter Plan of Treatment Not on file documented as of this encounter Visit Diagnoses Not on filedocumented in this encounter Care Teams Jet Piercer Operator Relationship Specialty Start Date End Date Juan José Kendall MD [address] [facility] [address] [place] [id number] PCP - General Family Medicine 12/25/22 Juan José Kendall MD [address] [facility] [address] [place] [phone] Referring Physician Family Medicine 12/25/22 documented as of this encounter
--- OUTSIDE RECORDS SUMMARY | 2024-03-11 09:16 | XMS_ITS | Encounter Summary ---
Author Organization [email or web address] Address [address] [place] [address] Care Team Providers Care Farrowing Manager Name Role Phone Juan José Kendall MD Primary Care Provider + [phone] Juan José Kendall MD Unavailable [phone] Encounter Details Date Type Department Care Team (Late st Contact Info) Description 10/03/2018 Transcribed Document [facility] [place] Family Medicine [address] [place] [address] ProviderLaurie MD [address] [place] [address] Social History Tobacco Use Types Packs/Day Years Used Date Smoking Tobacco: Never Assessed Comments Unknown Sex and Gender Information Value Date Recorded Sex Assigned at Not on file Legal Sex Female 2:23 PM CDT Gender Identity Not on file Sexual Orientation Not on file documented as of this encounter Miscellaneous Notes * Cerner Conversion Note - Historical ProviderMD - 10/03/2018 5:00 PM CDT Chart Check - Review Order Profile Entered On: 10/03/2018 16:32 EDT Performed On: 10/03/2018 17:00 EDT by Lisa Haile RN Chart Check Powerplans Initiated/Discontinued as Appropriate : Yes All Active Orders Reviewed : Yes Lisa Haile RN - 10/03/2018 16:32 EDT documented in this encounter Plan of Treatment Not on file documented as of this encounter Visit Diagnoses Not on filedocumented in this encounter Care Teams Farrowing Manager Relationship Specialty Start Date End Date Juan José Kendall MD [address] [place] [phone] PCP - General Family Medicine 12/25/22 Juan José Kendall MD [address] [place] [phone] Referring Physician Family Medicine 12/25/22 documented as of this encounter
--- OUTSIDE RECORDS SUMMARY | 2024-03-11 09:16 | XMS_ITS | Encounter Summary ---
Author Organization [employer] Address [address] [facility] [address] Care Team Providers Care Mutual Fund Sales Agent Name Role Phone Juan José Kendall MD Primary Care Provider +- [phone] Juan José Kendall MD Unavailable [phone] Encounter Details Date Type Department Care Team (Late st Contact Info) Description 10/03/2018 Transcribed Document [facility] [place] [facility] [place] [address] ProviderLaurie MD [address] [place] [address] Social History Tobacco Use Types Packs/Day Years Used Date Smoking Tobacco: Never Assessed Comments Unknown Sex and Gender Information Value Date Recorded Sex Assigned at Not on file Legal Sex Female 2:23 PM CDT Gender Identity Not on file Sexual Orientation Not on file documented as of this encounter Miscellaneous Notes * Cerner Conversion Note - Laurie ProviderMD - 10/03/2018 12:28 PM CDT Interdisciplinary Rounds Entered On: 10/03/2018 12:30 EDT Performed On: 10/03/2018 12:28 EDT by MAMTA CHARLES RN Interdisciplinary Rounds Interdisciplinary Rounds Participants : risk management manager, Pharmacist BETHANY MO [facility] - 10/04/2018 10:10 EDT Rounds Participants Comment : Meeting scheduled for 10/05/2018 BARRIERS TO DISCHARGE MAMTA CHARLES RN - 10/03/2018 12:28 EDT Progress Toward Discharge : Physical therapy Occupational therapy Wound Care Knee left midline - stapled, island border dressing Heel left posterior - honey-based dressing bilateral medial upper thighs - left open to air Pharmacy IV vancomycin to stop 10/05, course completed. BETHANY [place], [facility] - 10/04/2018 10:10 EDT Notes to Care Team : Physician Notes Critical Pathway Name : Current DRG 560 LOS 19.5-23.4 anticipated discharge date 09/30/2018 MAMTA CHARLES, RN - 10/03/2018 12:28 EDT Electronically signed by [facility], [facility] Conversion Birth Attendant Cerner at 07/24/2022 3:41 PM CDT documented in this encounter Plan of Treatment Not on file documented as of this encounter Visit Diagnoses Not on filedocumented in this encounter Care Teams Mutual Fund Sales Agent Relationship Specialty Start Date End Date Juan José Kendall MD [address] [facility] [address] [place] [id number] PCP - General Family Medicine 12/25/22 Juan José Kendall MD [address] [facility] [address] [place] [phone] Referring Physician Family Medicine 12/25/22 documented as of this encounter
--- OUTSIDE RECORDS SUMMARY | 2024-03-11 09:16 | XMS_ITS | Encounter Summary ---
Author Organization [employer] Address [address] [place] [address] Care Team Providers Care Metal Door Assembler Name Role Phone Juan José Kendall MD Primary Care Provider +- [phone] Juan José Kendall MD Unavailable [phone] Encounter Details Date Type Department Care Team (Late st Contact Info) Description 10/03/2018 Transcribed Document [facility] [place] [facility] [place] [address] ProviderLaurie MD [address] [place], [place] [address] Social History Tobacco Use Types Packs/Day Years Used Date Smoking Tobacco: Never Assessed Comments Unknown Sex and Gender Information Value Date Recorded Sex Assigned at Not on file Legal Sex Female 2:23 PM CDT Gender Identity Not on file Sexual Orientation Not on file documented as of this encounter Miscellaneous Notes * Cerner Conversion Note - Historical ProviderMD - 10/03/2018 2:00 AM CDT Delicatessen Manager Details Entered On: 10/03/2018 0:35 EDT Performed On: 10/03/2018 2:00 EDT by FRANCISCO MOREJON RN Order Details Transport Mode Order Detail : Stretcher/Gurney Isolation Precautions Order Detail : Standard Precautions Order Detail : 0 IV Order Detail : 0 Oxygen Order Detail : 0 Nurse Collect Order Detail : 1 Lift/Transfer : Maximal assist Central Line Order Detail : Yes Room Service : Appropriate Arterial Line : No FRANCISCO MOREJON RN - 10/03/2018 0:34 EDT documented in this encounter Plan of Treatment Not on file documented as of this encounter Visit Diagnoses Not on filedocumented in this encounter Care Teams Metal Door Assembler Relationship Specialty Start Date End Date Juan José Kendall MD [address] [facility] [address] [place] [phone] PCP - General Family Medicine 12/25/22 Juan José Kendall MD [address] [facility] [address] [place] [phone] Referring Physician Family Medicine 12/25/22 documented as of this encounter
--- OUTSIDE RECORDS SUMMARY | 2024-03-11 09:16 | XMS_ITS | Encounter Summary ---
Author Organization [employer] Address [address] [place] [address] Care Team Providers Care Nougat Cutter Machine Name Role Phone Juan José Kendall MD Primary Care Provider + [phone] Juan José Kendall MD Unavailable +[phone] Encounter Details Date Type Department Care Team (Late st Contact Info) Description 10/02/2018 Transcribed Document [facility] [place] [address] [place] [address] ProviderLaurie MD [address] [place] [address] Social History Tobacco Use Types Packs/Day Years Used Date Smoking Tobacco: Never Assessed Comments Unknown Sex and Gender Information Value Date Recorded Sex Assigned at Not on file Legal Sex Female 2:23 PM CDT Gender Identity Not on file Sexual Orientation Not on file documented as of this encounter Miscellaneous Notes * Cerner Conversion Note - Laurie ProviderMD - 10/02/2018 5:00 PM CDT Chart Check - Review Order Profile Entered On: 10/02/2018 16:28 EDT Performed On: 10/02/2018 17:00 EDT by ORLY RICHARDS, RN Chart Check Powerplans Initiated/Discontinued as Appropriate : Yes All Active Orders Reviewed : Yes OLRY RICHARDS RN - 10/02/2018 16:28 EDT Electronically signed by Aleks Cox Branson Conversion Unclaimed Property Manager Cerner at 07/24/2022 3:50 PM CDT documented in this encounter Plan of Treatment Not on file documented as of this encounter Visit Diagnoses Not on filedocumented in this encounter Care Teams Nougat Cutter Machine Relationship Specialty Start Date End Date Juan José Kendall MD [address] [place] [address] PCP - General Family Medicine 12/25/22 Juan José Kendall MD [address] [place] [address] Referring Physician Family Medicine 12/25/22 documented as of this encounter
--- OUTSIDE RECORDS SUMMARY | 2024-03-11 09:16 | XMS_ITS | Encounter Summary ---
Author Organization [employer] Address [address] [place] [address] Care Team Providers Care Computer Programming Manager Name Role Phone Juan José Kendall MD Primary Care Provider + [phone] Juan José Kendall MD Unavailable [phone] Encounter Details Date Type Department Care Team (Late st Contact Info) Description 10/02/2018 Transcribed Document [facility] [place] [facility] [place] [address] ProviderLaurie MD [address] [place] [address] Social History Tobacco Use Types Packs/Day Years Used Date Smoking Tobacco: Never Assessed Comments Unknown Sex and Gender Information Value Date Recorded Sex Assigned at Not on file Legal Sex Female 2:23 PM CDT Gender Identity Not on file Sexual Orientation Not on file documented as of this encounter Miscellaneous Notes * Cerner Conversion Note - Laurie ProviderMD - 10/02/2018 5:00 AM CDT Chart Check - Review Order Profile Entered On: 10/02/2018 5:48 EDT Performed On: 10/02/2018 5:00 EDT by Joanne Norton, RN Chart Check Powerplans Initiated/Discontinued as Appropriate : Yes All Active Orders Reviewed : Yes Joanne Norton RN - 10/02/2018 5:48 EDT documented in this encounter Plan of Treatment Not on file documented as of this encounter Visit Diagnoses Not on filedocumented in this encounter Care Teams Computer Programming Manager Relationship Specialty Start Date End Date Juan José Kendall MD [address] [place] [address] PCP - General Family Medicine 12/25/22 Juan José Kendall MD [address] [place] [address] Referring Physician Family Medicine 12/25/22 documented as of this encounter
--- OUTSIDE RECORDS SUMMARY | 2024-03-11 09:16 | XMS_ITS | Encounter Summary ---
Author Organization [employer] Address [address] [place] [address] Care Team Providers Care Car Rental Agency Manager Name Role Phone Juan José Kendall MD Primary Care Provider +- [phone] Juan José Kendall MD Unavailable [phone] Encounter Details Date Type Department Care Team (Late st Contact Info) Description 09/30/2018 Transcribed Document [facility] [place] [facility] [address] ProviderLaurie MD [address] [place] [address] Social History Tobacco Use Types Packs/Day Years Used Date Smoking Tobacco: Never Assessed Comments Unknown Sex and Gender Information Value Date Recorded Sex Assigned at Not on file Legal Sex Female 2:23 PM CDT Gender Identity Not on file Sexual Orientation Not on file documented as of this encounter Miscellaneous Notes * Cerner Conversion Note - Laurie ProviderMD - 09/30/2018 3:00 AM CDT Pain Assessment Entered On: 09/30/2018 6:04 EDT Performed On: 09/30/2018 6:04 EDT by FRANCISCO MOREJON RN Intervention Information: acetaminophen Performed by FRANCISCO MOREJON RN on 09/30/2018 05:04:00 EDT acetaminophen,500mg Oral Pain Assessment Pain Assessment : Follow-up assessment Pain Scale Goal : 3 Pain Scale Used : 0-10 Scale FRANCISCO MOREJON RN - 09/30/2018 6:04 EDT Pain Scale Intensity : 0 FRANCISCO MOREJON RN - 09/30/2018 6:04 EDT Image 4 - Images currently included in the form version of this document have not been included in the text rendition version of the form. documented in this encounter Plan of Treatment Not on file documented as of this encounter Visit Diagnoses Not on filedocumented in this encounter Care Teams Car Rental Agency Manager Relationship Specialty Start Date End Date Juan José Kendall MD [address] [facility] [address] [place] [address] PCP - General Family Medicine 12/25/22 Juan José Kendall MD [address] [facility] [address] [place] [address] Referring Physician Family Medicine 12/25/22 documented as of this encounter
--- OUTSIDE RECORDS SUMMARY | 2024-03-11 09:16 | XMS_ITS | Encounter Summary ---
Author Organization [employer] Address [address] [place] [address] Care Team Providers Care Community Liaison Name Role Phone Juan José Kendall MD Primary Care Provider +- [phone] Juan José Kendall MD Unavailable [phone] Encounter Details Date Type Department Care Team (Late st Contact Info) Description 10/01/2018 Transcribed Document [facility] [place] [address] ProviderLaurie MD [address] [place] [address] Social History Tobacco Use Types Packs/Day Years Used Date Smoking Tobacco: Never Assessed Comments Unknown Sex and Gender Information Value Date Recorded Sex Assigned at Not on file Legal Sex Female 2:23 PM CDT Gender Identity Not on file Sexual Orientation Not on file documented as of this encounter Miscellaneous Notes * Cerner Conversion Note - Laurie ProviderMD - 10/01/2018 9:00 AM CDT Pain Assessment Entered On: 10/01/2018 10:28 EDT Performed On: 10/01/2018 10:10 EDT by SAMANTHA HONEYCUTT RN Intervention Information: acetaminophen Performed by SAMANTHA HONEYCUTT RN on 10/01/2018 09:10:00 EDT acetaminophen,500mg Oral Pain Assessment Pain Assessment : Follow-up assessment Pain Scale Goal : 3 Pain Scale Used : 0-10 Scale SAMANTHA HONEYCUTT RN - 10/01/2018 10:28 EDT Pain Scale Intensity : 2 SAMANTHA HONEYCUTT RN - 10/01/2018 10:28 EDT Image 4 - Images currently included in the form version of this document have not been included in the text rendition version of the form. documented in this encounter Plan of Treatment Not on file documented as of this encounter Visit Diagnoses Not on filedocumented in this encounter Care Teams Community Liaison Relationship Specialty Start [place] [address] [place] [address] [address] [place] [phone] PCP - General Family Medicine 12/25/22 Juan José Kendall MD [address] [place] [address] [address] [place] [phone] Referring Physician Family Medicine 12/25/22 documented as of this encounter
--- OUTSIDE RECORDS SUMMARY | 2024-03-11 09:16 | XMS_ITS | Encounter Summary ---
Author Organization [employer] Address [address] [place] [address] Care Team Providers Care Wood Barker Name Role Phone Juan José Kendall MD Primary Care Provider + [phone] Juan José Kendall MD Unavailable [phone] Encounter Details Date Type Department Care Team (Late st Contact Info) Description 10/03/2018 Transcribed Document [facility] [place] Family [place] [facility] [place] [address] ProviderLaurie MD [address] [place] [address] Social History Tobacco Use Types Packs/Day Years Used Date Smoking Tobacco: Never Assessed Comments Unknown Sex and Gender Information Value Date Recorded Sex Assigned at Not on file Legal Sex Female 2:23 PM CDT Gender Identity Not on file Sexual Orientation Not on file documented as of this encounter Miscellaneous Notes * Cerner Conversion Note - Laurie Garcia MD - 10/03/2018 7:34 PM CDT Patient: TRUDI BLAIR Age: 63 [...] control, no trouble w. urination. ???Sitting on a wheelchair today ???For prison facility pending insurance approval ???Surgical intervention but Dr. oRbles after 2 months ???Prealbumin 10.9 consistent with severe malnutrition Review of Systems Constitutional: No fever, No [...] inj 4 mg 2 mL, IV Push, [id number] pantoprazole EC 40 mg tab 40 mg [...] Stress incontinence Physical Examination VS/Measurements Vital Measurements 10/03/2018 19:00 EDT Systolic Blood Pressure 147 mmHg HI Diastolic Blood Pressure 68 mmHg Temperature Source Oral Temperature Mode Fahrenheit Temperature, Fahrenheit 98.1 Deg F Clinical Temperature, C 36.7 Deg C Heart Rate Monitored 83 bpm Respiratory Rate 18 Breaths/Min Oxygen Saturation 97 % General: Alert [...] Review / Management Results review: All Results 10/03/2018 4:10 EDT Sodium Level 145 mmol/L [...] 18.2 % LOW Lymph # 1.08 x10(3)/uL Hickman % 10.5 % HI Hickman # 0.62 K/uL Eos % 6.6 % Eos # 0.39 x10(3)/uL Baso % 0.3 % Baso # 0.02 x10(3)/uL Sed Rate Auto 33 mm/Hr HI Slide Review No IG# 0.03 x10(3)/uL IG% 0.50 % Prealbumin 10.9 mg/dL LOW 10/02/2018 5:25 EDT Sodium Level 144 mmol/L Potassium Level 3.4 mmol/L LOW Chloride Level 112 mmol/L Carbon Dioxide Level 26 mmol/L Anion Gap 9 Glucose Level 95 mg/dL Blood Urea Nitrogen 16 mg/dL Creatinine Level 1.30 mg/dL HI eGFR 50 mL/min/1.73m2 LOW eGFR NonAfrican 41 mL/min/1.73m2 LOW Bun/Creatinine 12.3 Calcium Level 8.8 mg/dL Platelet Count 191 K/uL . Impression and Plan Diagnosis Left prosthetic knee [...] IV antibiotics as recommended by infectious disease -Continue wound care -Pain control -DVT prophylaxis -Close monitoring fluid and electrolytes -When necessary nebs -For risk precautions -Sleep apnea precautions -nutritional support -Stress ulcer prophylaxis -Pending insurance approval for placement. documented in this encounter Plan of Treatment Not on file documented as of this encounter Visit Diagnoses Not on filedocumented in this encounter Care Teams Wood Barker Relationship Specialty Start Date End Date Juan José Kendall MD [address] [place] [phone] PCP - General Family Medicine 12/25/22 Juan José Kendall MD [address] [place] [phone] Referring Physician Family Medicine 12/25/22 documented as of this encounter
--- OUTSIDE RECORDS SUMMARY | 2024-03-11 09:16 | XMS_ITS | Encounter Summary ---
Author Organization [employer] Address [address] [place] [address] Care Team Providers Care Deputy Chief Counsel Name Role Phone Juan José Kendall MD Primary Care Provider + [phone] Juan José Kendall MD Unavailable [phone] Encounter Details Date Type Department Care Team (Late st Contact Info) Description 09/30/2018 Transcribed Document [facility] [place] [address] ProviderLaurie MD [address] [place] [address] Social History Tobacco Use Types Packs/Day Years Used Date Smoking Tobacco: Never Assessed Comments Unknown Sex and Gender Information Value Date Recorded Sex Assigned at Not on file Legal Sex Female 2:23 PM CDT Gender Identity Not on file Sexual Orientation Not on file documented as of this encounter Miscellaneous Notes * Cerner Conversion Note - Laurie ProviderMD - 09/30/2018 5:00 AM CDT Chart Check - Review Order Profile Entered On: 09/30/2018 4:44 EDT Performed On: 09/30/2018 5:00 EDT by FRANCISCO MOREJON RN Chart Check Powerplans Initiated/Discontinued as Appropriate : Yes All Active Orders Reviewed : Yes FRANCISCO MOREJON RN - 09/30/2018 4:44 EDT documented in this encounter Plan of Treatment Not on file documented as of this encounter Visit Diagnoses Not on filedocumented in this encounter Care Teams Deputy Chief Counsel Relationship Specialty Start Date End Date Juan José Kendall MD [address] [place] [address] PCP - General Family Medicine 12/25/22 Juan José Kendall MD [address] [place] [phone] Referring Physician Family Medicine 12/25/22 documented as of this encounter
--- OUTSIDE RECORDS SUMMARY | 2024-03-11 09:16 | XMS_ITS | Encounter Summary ---
Author Organization [employer] Address [address] [place] [address] Care Team Providers Care Executive Vp Name Role Phone Unavailable Primary Care Provider Unavailabl e Encounter Details Date Type Department Care Team (Late st Contact Info) Description 10/01/2018 Historic Encounter [address] [address] ProviderTisha Historical Social History Tobacco [...] Procedure Name Priority Date/Time Associated Diagnosis Comments [facility] BASIC METABOLIC PANEL ([facility] DATA CONV) Routine 10/01/2018 5:31 AM EDT documented in this encounter Results * (ABNORMAL) [facility] BASIC METABOLIC PANEL ([facility] BKR DATA CONV) (10/01/2018 5:31 AM EDT) Glucose Level 93 74 - 106 mg/dL 10/01/2018 10:06 AM EDT Comment: Makstr has become aware of sulfasalazine and sulfapyridine [...] Urea Nitrogen 16 7 - 22 mg/dL 10/01/2018 10:06 AM EDT Creatinine Level 1.20(H) 0.55 - 1.02 mg/dL 10/01/2018 10:06 AM EDT Sodium Level 143 136 - 146 mmol/L 10/01/2018 10:06 AM EDT Potassium Level 3.5 3.5 - 5.1 mmol/L 10/01/2018 10:06 AM EDT Chloride Level 113(H) 102 - 112 mmol/L 10/01/2018 10:06 AM EDT Carbon Dioxide Level 26 21 - 32 mmol/L 10/01/2018 10:06 AM EDT Anion Gap 8(L) 9 - 20 10/01/2018 10:06 AM EDT Calcium Level 8.8 8.4 - 10.1 mg/dL 10/01/2018 10:06 AM EDT Bun/Creatinine 12.3 8.0 - 20.0 10/01/2018 10:06 AM EDT eGFR NonAfrican 45(L) >=60 mL/min/1. 73m2 10/01/2018 10:07 AM EDT Comment: GFR <60 suggests chronic kidney disease, if found over 3 month period. GFR <15 indicates renal failure. eGFR 55(L) >=60 mL/min/1. 73m2 10/01/2018 10:07 AM EDT Comment: GFR <60 suggests chronic kidney disease, if found over 3 month period. GFR <15 indicates renal failure. Blood 10/01/2018 5:31 AM EDT 10/01/2018 9:57 AM EDT [facility] Historical Provider LAB BLOOD ORDERABLES Fi nal Result [facility] [address] [place] [address], [facility] [phone] documented in this encounter Visit Diagnoses Not on filedocumented in this encounter
--- OUTSIDE RECORDS SUMMARY | 2024-03-11 09:16 | XMS_ITS | Encounter Summary ---
Author Organization [employer] Address [address] [place] [address] Care Team Providers Care Quality Assurance Lab Technician Name Role Phone Juan José Kendall MD Primary Care Provider + [phone] Juan José Kendall MD Unavailable [phone] Encounter Details Date Type Department Care Team (Late st Contact Info) Description 10/03/2018 Transcribed Document [facility] [place] [facility], [facility] [place] [address] ProviderLaurie MD [address] [place] [address] Social History Tobacco Use Types Packs/Day Years Used Date Smoking Tobacco: Never Assessed Comments Unknown Sex and Gender Information Value Date Recorded Sex Assigned at Not on file Legal Sex Female 2:23 PM CDT Gender Identity Not on file Sexual Orientation Not on file documented as of this encounter Miscellaneous Notes * Cerner Conversion Note - Historical ProviderMD - 10/03/2018 6:00 PM CDT Patch Check Entered On: 10/03/2018 17:35 EDT Performed On: 10/03/2018 18:00 EDT by Lisa Haile RN Patch Check Patch Check Result : Yes Patch Check - Type of Patch : scopolamine (Transderm-Scop) Patch Check - Location : Left Ear Lisa Haile RN - 10/03/2018 17:34 EDT Electronically signed by Adia Fink Conversion Manufacturing Production Technician Cerner at 07/24/2022 3:46 PM CDT documented in this encounter Plan of Treatment Not on file documented as of this encounter Visit Diagnoses Not on filedocumented in this encounter Care Teams Quality Assurance Lab Technician Relationship Specialty Start Date End Date Juan José Kendall MD [address] [place] [address] PCP - General Family Medicine 12/25/22 Juan José Kendall MD [address] [place] [phone] Referring Physician Family Medicine 12/25/22 documented as of this encounter
--- OUTSIDE RECORDS SUMMARY | 2024-03-11 09:16 | XMS_ITS | Encounter Summary ---
Author Organization [employer] Address [address] [place] [address] Care Team Providers Care Tool And Machine Maintainer Name Role Phone Juan José Kendall MD Primary Care Provider +- [phone] Juan José Kendall MD Unavailable [phone] Encounter Details Date Type Department Care Team (Late st Contact Info) Description 10/01/2018 Transcribed Document [facility] [place] Family Medicine [address] [place] [address] ProviderLaurie MD [address] [place] [id number] Social History Tobacco Use Types Packs/Day Years Used Date Smoking Tobacco: Never Assessed Comments Unknown Sex and Gender Information Value Date Recorded Sex Assigned at Not on file Legal Sex Female 2:23 PM CDT Gender Identity Not on file Sexual Orientation Not on file documented as of this encounter Miscellaneous Notes * Cerner Conversion Note - Laurie ProviderMD - 10/01/2018 9:00 PM CDT Pain Assessment Entered On: 10/01/2018 22:55 EDT Performed On: 10/01/2018 21:52 EDT by Joanne Norton RN Intervention Information: acetaminophen Performed by Joanne Norton RN on 10/01/2018 20:52:00 EDT acetaminophen,500mg Oral Pain Assessment Pain Assessment : Follow-up assessment Pain Scale Goal : 3 Pain Scale Used : 0-10 Scale Joanne Norton RN - 10/01/2018 22:55 EDT Pain Scale Intensity : 0 Joanne Norton RN - 10/01/2018 22:55 EDT Image 4 - Images currently included in the form version of this document have not been included in the text rendition version of the form. documented in this encounter Plan of Treatment Not on file documented as of this encounter Visit Diagnoses Not on filedocumented in this encounter Care Teams Tool And Machine Maintainer Relationship Specialty Start Date End Date Juan José Kendall MD [address] [facility] [address] [place] [phone] PCP - General Family Medicine 12/25/22 Juan José Kendall MD [address] [place] [facility] [address] [place] [phone] Referring Physician Family Medicine 12/25/22 documented as of this encounter
--- OUTSIDE RECORDS SUMMARY | 2024-03-11 09:16 | XMS_ITS | Encounter Summary ---
Author Organization [employer] Address [address] [place] [address] Care Team Providers Care Tire Center Manager Name Role Phone Juan José Kendall MD Primary Care Provider + [phone] Juan José Kendall MD Unavailable [phone] Encounter Details Date Type Department Care Team (Late st Contact Info) Description 10/01/2018 Transcribed Document [facility] [place] [address] [place] [address] ProviderLaurie MD [address] [place] [address] Social History Tobacco Use Types Packs/Day Years Used Date Smoking Tobacco: Never Assessed Comments Unknown Sex and Gender Information Value Date Recorded Sex Assigned at Not on file Legal Sex Female 2:23 PM CDT Gender Identity Not on file Sexual Orientation Not on file documented as of this encounter Miscellaneous Notes * Cerner Conversion Note - Historical ProviderMD - 10/01/2018 5:00 PM CDT Chart Check - Review Order Profile Entered On: 10/01/2018 15:27 EDT Performed On: 10/01/2018 17:00 EDT by SAMANTHA HONEYCUTT RN Chart Check Powerplans Initiated/Discontinued as Appropriate : Yes All Active Orders Reviewed : Yes SAMANTHA HONEYCUTT RN - 10/01/2018 15:27 EDT documented in this encounter Plan of Treatment Not on file documented as of this encounter Visit Diagnoses Not on filedocumented in this encounter Care Teams Tire Center Manager Relationship Specialty Start Date End Date Juan José Kendall MD [address] [place] [address] PCP - General Family Medicine 12/25/22 Juan José Kendall MD [address] [place] [phone] Referring Physician Family Medicine 12/25/22 documented as of this encounter
--- OUTSIDE RECORDS SUMMARY | 2024-03-11 09:16 | XMS_ITS | Encounter Summary ---
Author Organization [employer] Address [address] [place] [address] Care Team Providers Care Car Bracer Name Role Phone Juan José Kendall MD Primary Care Provider +- [phone] Juan José Kendall MD Unavailable [phone] Encounter Details Date Type Department Care Team (Late st Contact Info) Description 10/02/2018 Transcribed Document [facility] [place] Family [place] [facility] [place] [address] ProviderLaurie MD [address] [place] [id number] Social History Tobacco Use Types Packs/Day Years Used Date Smoking Tobacco: Never Assessed Comments Unknown Sex and Gender Information Value Date Recorded Sex Assigned at Not on file Legal Sex Female 2:23 PM CDT Gender Identity Not on file Sexual Orientation Not on file documented as of this encounter Miscellaneous Notes * Cerner Conversion Note - Historical ProviderMD - 10/02/2018 8:19 PM CDT Patient: TRUDI BLAIR Age: 63 [...] repair. She was more recently admitted to [facility] x2 earlier this month on 08/16 [...] getting wound care. She was transferred to [facility] today for a higher level of care. [...] the antibiotics without any adverse side effects. [place] removed yesterday at her incision site remains [...] Guerrero would like her to see an multimedia educational specialist at after her discharge from here. She will require subsequent left knee reconstructive surgery. 10/02/18: She has some nausea today. She has remained afebrile. She will complete her intravenous vancomycin on 10/05. ROS: As above Past Medical History: Arthritis Back pain GERD HLD NUVIA HTN Stress incontinence Past Surgical History: Left TKA, 2017 left patellar tendon repair, 06/2018 lumbar fusion hysterectomy right TKA right patellar tendon repair Family History: CAD HTN Cancer Social History: . lives in [place]. No tobacco, ETOH, or illicit drug use. Social & Psychosocial Habits Alcohol 06/23/2018 Alcohol Use History, Social Habits No Substance Abuse 06/23/2018 Recreational Drug Use History No Tobacco 06/23/2018 Smoking Status Never (less than 100 in l Smokeless Tobacco Status Never Objective: Vitals Signs (last 24 hrs) Last Charted Minimum Maximum Temp 98.2 (OCT 02 19:00) 98 (OCT 02 15:00) 98.2 (OCT 01 23:00) Apical HR 80 (OCT 02 09:09) 80 (OCT 02 09:09) 80 (OCT 02 09:09) Mon HR 75 (OCT 02 19:00) 72 (OCT 02 15:00) 87 (OCT 01 23:00) Resp Rate 16 (OCT 02 19:00) 16 (OCT 02 19:00) 20 (OCT 01 23:00) SBP H 146 (OCT 02 19:00) 135 (OCT 01 23:00) H 149 (OCT 02 07:00) DBP 71 (OCT 02 19:00) 64 (OCT 01 23:00) 78 (OCT 02 15:00) MAP 96 (OCT 02 15:00) 96 (OCT 02 15:00) 96 (OCT 02 15:00) SpO2 98 (OCT 02 19:00) L 93 (OCT 02 07:00) 98 (OCT 02 19:00) PE: General: patient is alert and in [...] (EDGARD 17) L 27.2 (EDGARD 14) Plt 191 (EDGARD 30) 182 (EDGARD 28) 182 (EDGARD 27) 180 (EDGARD 26) Na 144 (EDGARD 30) 143 (EDGARD 29) 145 (EDGARD 28) 144 (EDGARD 27) K L 3.4 (EDGARD 30) 3.5 (EDGARD 29) 3.5 (EDGARD 28) 3.5 (EDGARD 27) Cl 112 (EDGARD 30) H 113 (EDGARD 29) H 113 (EDGARD 28) 112 (EDGARD 27) CO2 26 (EDGARD 30) 26 (EDGARD 29) 27 (EDGARD 28) 26 (EDGARD 27) BUN 16 (EDGARD 30) 16 (EDGARD 29) 21 (EDGARD 28) 22 (EDGARD 27) Cr H 1.30 (EDGARD 30) H 1.20 (EDGARD 29) H 1.20 (EDGARD 28) H 1.20 (EDGARD 27) Glu R 95 (EDGARD 30) 93 (EDGARD 29) 93 (EDGARD 28) 92 (EDGARD 27) Ca 8.8 (EDGARD 30) 8.8 (EDGARD 29) 8.6 (EDGARD 28) 8.8 (EDGARD 27) AST 12 (EDGARD 27) 14 (EDGARD 24) [...] PTN L 5.5 (EDGARD 27) L 5.3 (SEP 26) L 5.0 (SEP 19) L 5.0 (SEP 14) ALB L 2.3 (SEP 29) L 2.2 (SEP 26) L 2.2 (SEP 17) L 2.3 (SEP 14) Lipase 191 (SEP 23) *labs (PowerNote only) in insert template MICRO: 08/31: tissue no growth IMAGING: No Radiology Results Found Assessment: 1. MRSA bacteremia 2. 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 Enterococcal UTI/bacteremia 4. Left leg DVT 5. Acute renal failure/ATN???improved Recommendations: 1. Continue vancomycin IV with an anticipated stop date of 10/05/18 2. Remove the Groshong catheter on 10/05/18 documented in this encounter Plan of Treatment Not on file documented as of this encounter Visit Diagnoses Not on filedocumented in this encounter Care Teams Car Bracer Relationship Specialty Start Date End Date Juan José Kendall MD [address] [facility] [address] [place] [address] PCP - General Family Medicine 12/25/22 Juan José Kendall MD [address] [facility] [address] [place] [id number] Referring Physician Family Medicine 12/25/22 documented as of this encounter
--- OUTSIDE RECORDS SUMMARY | 2024-03-11 09:16 | XMS_ITS | Encounter Summary ---
Author Organization [employer] Address [address] [place] [address] Care Team Providers Care Physical Therapy Coordinator Name Role Phone Juan José Kendall MD Primary Care Provider +- [phone] Juan José Kendall MD Unavailable [phone] Encounter Details Date Type Department Care Team (Late st Contact Info) Description 09/30/2018 Transcribed Document [facility] [place] Family Medicine [facility] [place] [address] ProviderLaurie MD [address] [place] [address] Social History Tobacco Use Types Packs/Day Years Used Date Smoking Tobacco: Never Assessed Comments Unknown Sex and Gender Information Value Date Recorded Sex Assigned at Not on file Legal Sex Female 2:23 PM CDT Gender Identity Not on file Sexual Orientation Not on file documented as of this encounter Miscellaneous Notes * Cerner Conversion Note - Historical ProviderMD - 09/30/2018 2:00 AM CDT Utilization Management Um Nurse Details Entered On: 09/30/2018 1:37 EDT Performed On: 09/30/2018 2:00 EDT by FRANCISCO MOREJON RN Order Details Transport Mode Order Detail : Stretcher/Gurney Isolation Precautions Order Detail : Standard Precautions Order Detail : 0 IV Order Detail : 0 Oxygen Order Detail : 0 Nurse Collect Order Detail : 1 Lift/Transfer : Maximal assist Central Line Order Detail : Yes Room Service : Appropriate Arterial Line : No FRANCISCO MOREJON RN - 09/30/2018 1:36 EDT documented in this encounter Plan of Treatment Not on file documented as of this encounter Visit Diagnoses Not on filedocumented in this encounter Care Teams Physical Therapy Coordinator Relationship Specialty Start Date End Date Juan José Kednall MD [address] [facility] [address] [place] [id number] PCP - General Family Medicine 12/25/22 Juan José Kendall MD [address] [facility] [address] [place] [id number] Referring Physician Family Medicine 12/25/22 documented as of this encounter
--- OUTSIDE RECORDS SUMMARY | 2024-03-11 09:16 | XMS_ITS | Encounter Summary ---
Author Organization [employer] Address [address] [place] [address] Care Team Providers Care Hair Or Beauty Salon Assistant Name Role Phone Juan Joés Kendall MD Primary Care Provider +- [phone] Juan José Kendall MD Unavailable [phone] Encounter Details Date Type Department Care Team (Late st Contact Info) Description 10/03/2018 Transcribed Document [facility] [place] Family Medicine [facility] [place] [address] ProviderLaurie MD [address] [place] [address] Social History Tobacco Use Types Packs/Day Years Used Date Smoking Tobacco: Never Assessed Comments Unknown Sex and Gender Information Value Date Recorded Sex Assigned at Not on file Legal Sex Female 2:23 PM CDT Gender Identity Not on file Sexual Orientation Not on file documented as of this encounter Miscellaneous Notes * Cerner Conversion Note - Historical ProviderMD - 10/03/2018 2:03 PM CDT Patient: TRUDI BLAIR Age: 63 [...] repair. She was more recently admitted to [facility] x2 earlier this month on 08/16 and [...] She was transferred [place] [facility] today for a higher level of care. [...] the antibiotics without any adverse side effects. [place] removed yesterday at her incision site remains [...] Balthrop would like her to see an ignition specialist at after her discharge from here. She will require subsequent left knee reconstructive surgery. 10/02/18: She has some nausea today. She has remained afebrile. She will complete her intravenous vancomycin on 10/05. 10/03/18: Afebrile, denies sob, n/v/d, rashes. some knee pain. ROS: As above Past Medical History: Arthritis Back pain GERD HLD NUVIA HTN Stress incontinence Past Surgical History: Left TKA, 2017 left patellar tendon repair, 06/2018 lumbar fusion hysterectomy right TKA right patellar tendon repair Family History: CAD HTN Cancer Social History: . lives in [place]. No tobacco, ETOH, or illicit drug use. Social & Psychosocial Habits Alcohol 06/23/2018 Alcohol Use History, Social Habits No Substance Abuse 06/23/2018 Recreational Drug Use History No Tobacco 06/23/2018 Smoking Status Never (less than 100 in l Smokeless Tobacco Status Never Objective: Vitals Signs (last 24 hrs) Last Charted Minimum Maximum Temp 97.9 (OCT 03:45) 97.9 (OCT 03:45) 98 (OCT 02 15:00) Apical HR 81 (OCT 03 09:55) 81 (OCT 03 09:55) 81 (OCT 03 09:55) Mon HR 81 (OCT 03:45) 72 (OCT 02 15:00) 89 (OCT 02 23:00) Resp Rate 16 (OCT 03:45) 16 (OCT 02 19:00) 18 (OCT 02 15:00) SBP H 166 (OCT 03 09:55) H 146 (OCT 02 19:00) H 166 (OCT 03:45) DBP 81 (OCT 03 09:55) 67 (OCT 02 23:00) 81 (OCT 03 07:45) MAP 99 (OCT 03:45) 96 (OCT 02 15:00) 99 (OCT 03:45) SpO2 99 (OCT 03 07:45) 98 (OCT 02 19:00) 99 (OCT 02 23:00) PE: General: patient is alert and in [...] (SEP 26) L 26.3 (SEP 19) Plt 184 (OCT 03) 191 (OCT 02) 182 (SEP 30) 182 (SEP 29) Na 145 (OCT 03) 144 (SEP 30) 143 (OCT 01) 145 (SEP 30) K 3.6 (OCT 03) L 3.4 (SEP 30) 3.5 (SEP 29) 3.5 (SEP 30) Cl 112 (OCT 03) 112 (SEP 30) H 113 (OCT 01) H 113 (SEP 28) CO2 27 (OCT 03) 26 (SEP 30) 26 (SEP 29) 27 (SEP 30) BUN 14 (OCT 03) 16 (SEP 30) 16 (SEP 29) 21 (SEP 30) Cr H 1.30 (OCT 03) H 1.30 (SEP 30) H 1.20 (SEP 29) H 1.20 (SEP 28) Glu R 93 (OCT 03) 95 (SEP 30) 93 (SEP 29) 93 (SEP 28) Ca 8.6 (OCT 03) 8.8 (SEP 30) 8.8 (SEP 29) 8.6 (SEP 30) AST 12 (OCT 03) 12 (SEP 29) 14 (SEP 26) 11 (SEP 19) ALT L 9 (OCT 03) L 7 (SEP 29) L 7 (SEP 24) L 8 (SEP 19) ALK P 112 [...] 2. Remove the Groshong catheter on 10/05/18 Kwame Tavares MD saw and examined patient, verified findings, reviewed labs and radiographic data, formulated diagnosis, plan for treatment, and all medical decision making. Jeovany Darling for Dr. Kwame Tavares. I discussed her complex situation with Dr. Inder Tavares today. Electronically signed by Aleks, [facility] Conversion Timber Management Specialist Cerner at 07/24/2022 3:54 PM CDT documented in this encounter Plan of Treatment Not on file documented as of this encounter Visit Diagnoses Not on filedocumented in this encounter Care Teams Hair Or Beauty Salon Assistant Relationship Specialty Start Date End Date Juan José Kendall MD [address] [facility] [address] [place] [id number] PCP - General Family Medicine 12/25/22 Juan José Kendall MD [address] [facility] [address] [place] [phone] Referring Physician Family Medicine 12/25/22 documented as of this encounter
--- OUTSIDE RECORDS SUMMARY | 2024-03-11 09:16 | XMS_ITS | Encounter Summary ---
Author Organization [employer] Address [address] [facility] [place] [address] Care Team Providers Care Seismic Interpreter Name Role Phone Juan José Kendall MD Primary Care Provider +- [phone] Juan José Kendall MD Unavailable [phone] Encounter Details Date Type Department Care Team (Late st Contact Info) Description 10/02/2018 Transcribed Document [facility] Family Medicine [facility] [place] [address] ProviderLaurie MD [address] [place] [id number] Social History Tobacco Use Types Packs/Day Years Used Date Smoking Tobacco: Never Assessed Comments Unknown Sex and Gender Information Value Date Recorded Sex Assigned at Not on file Legal Sex Female 2:23 PM CDT Gender Identity Not on file Sexual Orientation Not on file documented as of this encounter Miscellaneous Notes * Cerner Conversion Note - Laurie ProviderMD - 10/02/2018 9:00 AM CDT Pain Assessment Entered On: 10/02/2018 14:49 EDT Performed On: 10/02/2018 10:09 EDT by ORLY RICHARDS RN Intervention Information: acetaminophen Performed by ORLY RICHARDS RN on 10/02/2018 09:09:00 EDT acetaminophen,500mg Oral Pain Assessment Pain Assessment : Follow-up assessment Pain Scale Goal : 3 Pain Scale Used : 0-10 Scale ORLY RICHARDS RN - 10/02/2018 14:48 EDT Pain Scale Intensity : 5 ORLY RICHARDS RN - 10/02/2018 14:48 EDT Image 4 - Images currently included in the form version of this document have not been included in the text rendition version of the form. documented in this encounter Plan of Treatment Not on file documented as of this encounter Visit Diagnoses Not on filedocumented in this encounter Care Teams Seismic Interpreter Relationship Specialty Start Date End Date Juan José Kendall MD [address] [facility] [address] [place] [id number] PCP - General Family Medicine 12/25/22 Juan José Kendall MD [address] [facility] [address] [place] [phone] Referring Physician Family Medicine 12/25/22 documented as of this encounter
--- OUTSIDE RECORDS SUMMARY | 2024-03-11 09:16 | XMS_ITS | Encounter Summary ---
Author Organization [employer] Address [address] [place] [address] Care Team Providers Care Drill Press Set Up Operator Name Role Phone Juan José Kendall MD Primary Care Provider + [phone] Juan José Kendall MD Unavailable [phone] Encounter Details Date Type Department Care Team (Late st Contact Info) Description 10/02/2018 Transcribed Document [facility] [place] Family [place] [address] ProviderLaurie MD [address] [place] [address] Social History Tobacco Use Types Packs/Day Years Used Date Smoking Tobacco: Never Assessed Comments Unknown Sex and Gender Information Value Date Recorded Sex Assigned at Not on file Legal Sex Female 2:23 PM CDT Gender Identity Not on file Sexual Orientation Not on file documented as of this encounter Miscellaneous Notes * Cerner Conversion Note - Laurie Garcia MD - 10/02/2018 9:41 PM CDT Patient: TRUDI BLAIR Age: 63 [...] pain under control, no trouble w. urination. Ex ???Had some nausea today ,relieved with Phenergan Review of Systems Constitutional: No fever, No chills. Eye: No discharge, No blurring, No double vision, No visual disturbances. Ear/Nose/Mouth/Throat: No nasal congestion, No sore throat. Respiratory: No shortness of breath, No cough. Cardiovascular: No chest pain, No palpitations. Gastrointestinal: No nausea, No vomiting. Genitourinary: No change in urine stream. Musculoskeletal: Negative. Neurologic: Alert and oriented X4. Health [...] inj 4 mg 2 mL, IV Push, [id number] pantoprazole EC 40 mg tab 40 mg [...] Stress incontinence Physical Examination VS/Measurements Vital Measurements 10/02/2018 19:00 EDT Systolic Blood Pressure 146 mmHg HI Diastolic Blood Pressure 71 mmHg Temperature Source Oral Temperature Mode Fahrenheit Temperature, Fahrenheit 98.2 Deg F Clinical Temperature, C 36.8 Deg C Heart Rate Monitored 75 bpm Respiratory Rate 16 Breaths/Min Oxygen Saturation 98 % General: Alert [...] Review / Management Results review: All Results 10/02/2018 5:25 EDT Sodium Level 144 mmol/L Potassium Level 3.4 mmol/L LOW Chloride Level 112 mmol/L Carbon Dioxide Level 26 mmol/L Anion Gap 9 Glucose Level 95 mg/dL Blood Urea Nitrogen 16 mg/dL Creatinine Level 1.30 mg/dL HI eGFR 50 mL/min/1.73m2 LOW eGFR NonAfrican 41 mL/min/1.73m2 LOW Bun/Creatinine 12.3 Calcium Level 8.8 mg/dL Platelet Count 191 K/uL 10/01/2018 5:31 EDT Sodium Level 143 mmol/L Potassium Level 3.5 mmol/L Chloride Level 113 mmol/L HI Carbon Dioxide Level 26 mmol/L Anion Gap 8 LOW Glucose Level 93 mg/dL Blood Urea Nitrogen 16 mg/dL Creatinine Level 1.20 mg/dL HI eGFR 55 mL/min/1.73m2 LOW eGFR NonAfrican 45 mL/min/1.73m2 LOW Bun/Creatinine 12.3 Calcium Level 8.8 mg/dL . Condition: Stable. Impression and Plan Diagnosis [...] risk precautions -Sleep apnea precautions -Stress ulcer prophylaxis -We will get labs in a.m.. Orders Order Profile (Selected) Inpatient Orders Ordered (Scheduled) CBC w/ Auto Diff: Specimen Type: Blood, AM Draw collect, 10/03/18 4:00:00 EDT, 1-Time, Stop: 10/03/18 4:00:00 EDT, Nurse Collect CMP Comprehensive Metabolic Panel: Specimen Type: Blood, AM Draw collect, 10/03/18 4:00:00 EDT, 1-Time, Stop: 10/03/18 4:00:00 EDT, Nurse Collect CRP C-Reactive Protein: Specimen Type: Blood, AM Draw collect, 10/03/18 4:00:00 EDT, 1-Time, Stop: 10/03/18 4:00:00 EDT, Nurse Collect ESR Sedimentation Rate Auto: Specimen Type: Blood, AM Draw collect, 10/03/18 4:00:00 EDT, 1-Time, Stop: 10/03/18 4:00:00 EDT, Nurse Collect. documented in this encounter Plan of Treatment Not on file documented as of this encounter Visit Diagnoses Not on filedocumented in this encounter Care Teams Drill Press Set Up Operator Relationship Specialty Start Date End Date Juan José Kendall MD [address] [place] [address] [address] [place] [phone] PCP - General Family Medicine 12/25/22 Juan José Kendall MD [address] [place] [address] [address] [place] [phone] Referring Physician Family Medicine 12/25/22 documented as of this encounter
--- OUTSIDE RECORDS SUMMARY | 2024-03-11 09:16 | XMS_ITS | Encounter Summary ---
Author Organization [employer] Address [address] [place] [address] Care Team Providers Care Registry Nurse Name Role Phone Juan José Kendall MD Primary Care Provider + [phone] Juan José Kendall MD Unavailable [phone] Encounter Details Date Type Department Care Team (Late st Contact Info) Description 09/30/2018 Transcribed Document [facility] [place] [address] ProviderLaurie MD [address] [place] [address] Social History Tobacco Use Types Packs/Day Years Used Date Smoking Tobacco: Never Assessed Comments Unknown Sex and Gender Information Value Date Recorded Sex Assigned at Not on file Legal Sex Female 2:23 PM CDT Gender Identity Not on file Sexual Orientation Not on file documented as of this encounter Miscellaneous Notes * Cerner Conversion Note - Historical ProviderMD - 09/30/2018 9:00 PM CDT Patch Check Entered On: 09/30/2018 22:15 EDT Performed On: 09/30/2018 21:00 EDT by Joanne Norton, RN Patch Check Patch Check Result : Yes Patch Check - Type of Patch : Other: scopolamine patch Joanne Norton RN - 09/30/2018 22:14 EDT documented in this encounter Plan of Treatment Not on file documented as of this encounter Visit Diagnoses Not on filedocumented in this encounter Care Teams Registry Nurse Relationship Specialty Start Date End Date Juan José Kendall MD [address] [place], [place] [phone] PCP - General Family Medicine 12/25/22 Juan José Kendall MD [address] [place] [phone] Referring Physician Family Medicine 12/25/22 documented as of this encounter
--- OUTSIDE RECORDS SUMMARY | 2024-03-11 09:16 | XMS_ITS | Encounter Summary ---
Author Organization [employer] Address [address] [place] [address] Care Team Providers Care Carpenter Rough Name Role Phone Juan José Kendall MD Primary Care Provider +- [phone] Juan José Kendall MD Unavailable [phone] Encounter Details Date Type Department Care Team (Late st Contact Info) Description 10/01/2018 Transcribed Document [facility] [place] Family Medicine [facility] [place] [address] ProviderLaurie MD [address] [place] [address] Social History Tobacco Use Types Packs/Day Years Used Date Smoking Tobacco: Never Assessed Comments Unknown Sex and Gender Information Value Date Recorded Sex Assigned at Not on file Legal Sex Female 2:23 PM CDT Gender Identity Not on file Sexual Orientation Not on file documented as of this encounter Miscellaneous Notes * Cerner Conversion Note - Historical ProviderMD - 10/01/2018 2:00 AM CDT Package Wrapper Details Entered On: 10/01/2018 1:42 EDT Performed On: 10/01/2018 2:00 EDT by Joanne Norton, RN Order Details Transport Mode Order Detail : Stretcher/Gurney Isolation Precautions Order Detail : Standard Precautions Order Detail : 0 IV Order Detail : 0 Oxygen Order Detail : 0 Nurse Collect Order Detail : 1 Lift/Transfer : Maximal assist Central Line Order Detail : Yes Room Service : Appropriate Arterial Line : No Joanne Norton, RN - 10/01/2018 1:42 EDT documented in this encounter Plan of Treatment Not on file documented as of this encounter Visit Diagnoses Not on filedocumented in this encounter Care Teams Carpenter Rough Relationship Specialty Start Date End Date Juan José Kendall MD [address] [facility] [address] [place] [phone] PCP - General Family Medicine 12/25/22 Juan José Kendall MD [address] [facility] [address] [place] [phone] Referring Physician Family Medicine 12/25/22 documented as of this encounter
--- OUTSIDE RECORDS SUMMARY | 2024-03-11 09:16 | XMS_ITS | Encounter Summary ---
Author Organization [employer] Address [address] [place] [address] Care Team Providers Care Industrial Chemist Name Role Phone Juan José Kendall MD Primary Care Provider +- [phone] Juan José Kendall MD Unavailable [phone] Encounter Details Date Type Department Care Team (Late st Contact Info) Description 10/01/2018 Transcribed Document [facility] Family Medicine [facility] [place] [address] ProviderLaurie MD [address] [place] [phone] Social History Tobacco Use Types Packs/Day Years Used Date Smoking Tobacco: Never Assessed Comments Unknown Sex and Gender Information Value Date Recorded Sex Assigned at Not on file Legal Sex Female 2:23 PM CDT Gender Identity Not on file Sexual Orientation Not on file documented as of this encounter Miscellaneous Notes * Cerner Conversion Note - Laurie ProviderMD - 10/01/2018 3:00 PM CDT Pain Assessment Entered On: 10/01/2018 15:27 EDT Performed On: 10/01/2018 16:11 EDT by SAMANTHA HONEYCUTT RN Intervention Information: acetaminophen Performed by SAMANTHA HONEYCUTT RN on 10/01/2018 15:11:00 EDT acetaminophen,500mg Oral Pain Assessment Pain Assessment : Follow-up assessment Pain Scale Goal : 3 Pain Scale Used : 0-10 Scale SAMANTHA HONEYCUTT RN - 10/01/2018 15:27 EDT Pain Scale Intensity : 2 SAMANTHA HONEYCUTT RN - 10/01/2018 15:27 EDT Image 4 - Images currently included in the form version of this document have not been included in the text rendition version of the form. documented in this encounter Plan of Treatment Not on file documented as of this encounter Visit Diagnoses Not on filedocumented in this encounter Care Teams Industrial Chemist Relationship Specialty Start [place] [address] [place] [address] [address] [place] [phone] PCP - General Family Medicine 12/25/22 Juan José Kendall MD [address] [place] [address] [address] [place] [phone] Referring Physician Family Medicine 12/25/22 documented as of this encounter
--- OUTSIDE RECORDS SUMMARY | 2024-03-11 09:16 | XMS_ITS | Encounter Summary ---
Author Organization [employer] Address [address] [place] [address] Care Team Providers Care Puff Ironer Name Role Phone Juan José Kendall MD Primary Care Provider +- [phone] Juan José Kendall MD Unavailable [phone] Encounter Details Date Type Department Care Team (Late st Contact Info) Description 09/30/2018 Transcribed Document [facility] [place] [facility] [place] [address] ProviderLaurie MD [address] [place] [address] Social History Tobacco Use Types Packs/Day Years Used Date Smoking Tobacco: Never Assessed Comments Unknown Sex and Gender Information Value Date Recorded Sex Assigned at Not on file Legal Sex Female 2:23 PM CDT Gender Identity Not on file Sexual Orientation Not on file documented as of this encounter Miscellaneous Notes * Cerner Conversion Note - Laurie ProviderMD - 09/30/2018 11:52 AM CDT Patient: TRUDI BLAIR Age: 63 [...] ABW: 139.5 kg DBW: 91.2 kg Labs: SEP 30 05:05 145 H 113 21 / 93 3.5 27 H 1.20 \ Allergies: biaxin I/O: 680 / x6 voids Estimated CrCl: 65-70 mL/min Vitals: Vitals Signs (last 24 hrs) Last Charted Minimum Maximum Temp 98.3 (SEP 30 07:00) 98.3 (SEP 30 07:00) 99.4 (SEP 29 19:00) Apical HR 81 (SEP 30 09:18) 81 (SEP 30 09:18) 81 (SEP 30 09:18) Mon HR 81 (SEP 30 07:00) 75 (SEP 29 19:00) 87 (SEP 29 22:00) Resp Rate 18 (SEP 30 07:00) 16 (SEP 29 15:00) 18 (SEP 29 19:00) SBP H 151 (SEP 30 07:00) 135 (SEP 29 15:00) H 151 (SEP 29 22:00) DBP 76 (SEP 30 07:00) 64 (SEP 29 22:00) H 95 (SEP 29 15:00) SpO2 97 (SEP 30 07:00) 96 (SEP 29 19:00) 98 (SEP 29 15:00) Cultures: 08/10 blood: MRSA 08/10 urine: Enterococcus 08/19 blood: Enterococcus (vanc S) 08/19 L leg wound: S. epi, MRSA Current antibiotics: Vancomycin 500mg IV q24h (start date 09/14, 09/30 = day 17) Previous antibiotics: Ceftriaxone (08/30-09/02) Ertapenem (08/30-08/31) Daptmycin [...] time A/P: 1. Vancomycin trough level therapeutic this am. Continue vancomycin 500mg IV q24h. No plans to recheck trough level unless duration extended beyond 10/05. 2. Monitor renal function closely. Some ongoing PILY attributed to sepsis from admission. BMP at least twice weekly on vancomycin. SCr stable at 1.2 today. 3. Abx planned until 10/05 per ID. 4. Pharmacy will continue to follow. Thank you for the consultation, Bethany Mo PharmD Electronically signed by [facility] Conversion Managed Care Manager Cerner at 07/24/2022 3:37 PM CDT documented in this encounter Plan of Treatment Not on file documented as of this encounter Visit Diagnoses Not on filedocumented in this encounter Care Teams Puff Ironer Relationship Specialty Start Date End Date Juan José Kendall MD [address] [facility] [address] [place] [id number] PCP - General Family Medicine 12/25/22 Juan José Kendall MD [address] [facility] [address] [place] [id number] Referring Physician Family Medicine 12/25/22 documented as of this encounter
--- OUTSIDE RECORDS SUMMARY | 2024-03-11 09:16 | XMS_ITS | Encounter Summary ---
Author Organization [employer] Address [address] [place] [address] Care Team Providers Care Wastewater Project Engineer Name Role Phone Juan José Kendall MD Primary Care Provider + [phone] Juan José Kendall MD Unavailable [phone] Encounter Details Date Type Department Care Team (Late st Contact Info) Description 10/03/2018 Transcribed Document [facility] [place] [address] ProviderLaurie MD [address] [place] [address] Social History Tobacco Use Types Packs/Day Years Used Date Smoking Tobacco: Never Assessed Comments Unknown Sex and Gender Information Value Date Recorded Sex Assigned at Not on file Legal Sex Female 2:23 PM CDT Gender Identity Not on file Sexual Orientation Not on file documented as of this encounter Miscellaneous Notes * Cerner Conversion Note - Historical ProviderMD - 10/03/2018 3:01 PM CDT Care Management Assessment/Plan Entered On: 10/03/2018 15:02 EDT Performed On: 10/03/2018 15:01 EDT by PJ NELSON Care Management Note Care Management Note : 10/03/2018 Spoke with [facility], they do not have a contract with [facility]. Care Management Note Report : PJ NELSON - 10/03/18 14:57:34 10/03/2018 Call received from [facility], they are unable to offer a bed for this patient. Patient and notified. They request a referral be faxed to [facility] (P: [phone] F: [phone]), faxed per their request. Awaiting a call [...] it be close to her home in [place]. Referrals faxed to Debbie Patricia (Signature liaison), [place], [facility], and [facility]. Awaiting a call back. PJ NELSON - 09/28/18 16:26:43 09/28/[address] [facility] with approval for LTACH services 09/29-10/04. Auth# [id number]. Fax next clinical review to [phone] on 10/05/2018. PJ NELSON - 09/28/18 08:24:24 09/28/2018 Clinical review faxed to [facility] ([phone]) to request coverage for continued LTACH services. Approval pending. Auth# [id number]. PJ NELSON - 09/21/18 15:48:14 09/21/[address] [facility] with approval for LTACH coverage 09/22/2018-09/28/2018. Auth# [id number]. Fax next clinical review to [phone] on 09/28/2018. PJ NESLON 09/21/18 08:22:57 09/21/2018 Clinical review faxed to [facility] ([phone]) to request coverage for continued LTACH services. Approval pending. Auth# [id number]. PJ NELSON - 09/15/18 11:34:17 09/15/[address] [facility] with approval for LTACH services 09/15-09/21/2018. Auth# [id number]. Fax next clinical review to [phone] on 09/21/2018. PJ NELSON - 09/14/18 08:28:49 09/14/2018 [facility] ([phone]) to request coverage for continued LTACH services. Approval pending. Auth# [id number]. Chuyita Briceno, Clinical Assessment Liaison - 09/09/18 [...] SNF. She has previously used [facility] and prefers to use them again if needed. The patient owns a shower chair, BSC and w/c. The patient has never needed a dialysis clinic. The patient has not fallen in the past 3 months. PCP- Dr. Ranjeet [facility]- Orthopedic- Dr. Shay Guerrero [facility]- - [facility] SNF- [facility] The patient does wish to return home upon discharge but understands that rehab/SNF may be needed. All papers were explained and signed. No other issues. CM will continue to monitor. Documentation Status Complete : Yes PJ NELSON - 10/03/2018 15:01 EDT documented in this encounter Plan of Treatment Not on file documented as of this encounter Visit Diagnoses Not on filedocumented in this encounter Care Teams Wastewater Project Engineer Relationship Specialty Start Date End Date Juan José Kendall MD [address] [facility] [address] [place] [id number] PCP - General Family Medicine 12/25/22 Juan José Kendall MD [address] [facility] [address] [place] [phone] Referring Physician Family Medicine 12/25/22 documented as of this encounter
--- OUTSIDE RECORDS SUMMARY | 2024-03-11 09:16 | XMS_ITS | Encounter Summary ---
Author Organization [employer] Address [address] [place] [address] Care Team Providers Care Policewoman Name Role Phone Juan José Kendall MD Primary Care Provider + [phone] Juan José Kendall MD Unavailable [phone] Encounter Details Date Type Department Care Team (Late st Contact Info) Description 10/01/2018 Transcribed Document [facility] [place] [facility] [place] [address] ProviderLaurie MD [address] [place] [address] Social History Tobacco Use Types Packs/Day Years Used Date Smoking Tobacco: Never Assessed Comments Unknown Sex and Gender Information Value Date Recorded Sex Assigned at Not on file Legal Sex Female 2:23 PM CDT Gender Identity Not on file Sexual Orientation Not on file documented as of this encounter Miscellaneous Notes * Cerner Conversion Note - Laurie ProviderMD - 10/01/2018 5:00 AM CDT Chart Check - Review Order Profile Entered On: 10/01/2018 6:19 EDT Performed On: 10/01/2018 5:00 EDT by Joanne Norton, RN Chart Check Powerplans Initiated/Discontinued as Appropriate : Yes All Active Orders Reviewed : Yes Joanne Norton RN - 10/01/2018 6:19 EDT documented in this encounter Plan of Treatment Not on file documented as of this encounter Visit Diagnoses Not on filedocumented in this encounter Care Teams Policewoman Relationship Specialty Start Date End Date Juan José Kendall MD [address] [place] [phone] PCP - General Family Medicine 12/25/22 Juan José Kendall MD [address] [place] [id number] Referring Physician Family Medicine 12/25/22 documented as of this encounter
--- OUTSIDE RECORDS SUMMARY | 2024-03-11 09:17 | XMS_ITS | Encounter Summary ---
Author Organization [employer] Address [address] [place] [address] Care Team Providers Care Director Of Research Center Name Role Phone Juan José Kendall MD Primary Care Provider + [phone] Juan José Kendall MD Unavailable [phone] Encounter Details Date Type Department Care Team (Late st Contact Info) Description 09/26/2018 Transcribed Document [facility] [place] [address] [place] [address] ProviderLaurie MD [address] [place] [address] Social History Tobacco Use Types Packs/Day Years Used Date Smoking Tobacco: Never Assessed Comments Unknown Sex and Gender Information Value Date Recorded Sex Assigned at Not on file Legal Sex Female 2:23 PM CDT Gender Identity Not on file Sexual Orientation Not on file documented as of this encounter Miscellaneous Notes * Cerner Conversion Note - Historical ProviderMD - 09/26/2018 5:00 PM CDT Chart Check - Review Order Profile Entered On: 09/26/2018 19:22 EDT Performed On: 09/26/2018 17:00 EDT by Renate Wilson RN Chart Check Powerplans Initiated/Discontinued as Appropriate : Yes All Active Orders Reviewed : Yes Renate Wilson RN - 09/26/2018 19:22 EDT documented in this encounter Plan of Treatment Not on file documented as of this encounter Visit Diagnoses Not on filedocumented in this encounter Care Teams Director Of Research Center Relationship Specialty Start Date End Date Juan José Kendall MD [address] [place] [id number] PCP - General Family Medicine 12/25/22 Juan José Kendall MD [address] [place] [id number] Referring Physician Family Medicine 12/25/22 documented as of this encounter
--- OUTSIDE RECORDS SUMMARY | 2024-03-11 09:17 | XMS_ITS | Encounter Summary ---
Author Organization [employer] Address [address] [place] [address] Care Team Providers Care Squirt Machine Operator Name Role Phone Juan José Kendall MD Primary Care Provider +- [phone] Juan José Kendall MD Unavailable [phone] Encounter Details Date Type Department Care Team (Late st Contact Info) Description 09/28/[address] [facility] [place] [facility] [place] [address] ProviderLaurie MD [address] [place] [address] Social History Tobacco Use Types Packs/Day Years Used Date Smoking Tobacco: Never Assessed Comments Unknown Sex and Gender Information Value Date Recorded Sex Assigned at Not on file Legal Sex Female 2:23 PM CDT Gender Identity Not on file Sexual Orientation Not on file documented as of this encounter Miscellaneous Notes * Cerner Conversion Note - Laurie ProviderMD - 09/28/2018 10:31 AM CDT Patient: TRUDI BLAIR Age: 63 [...] 139.5 kg DBW: 91.2 kg Labs: SEP 28 05:41 143 H 113 15 / 90 L 3.4 25 H 1.20 \ Allergies: biaxin I/O: 350 / x4 voids Estimated CrCl: 65-70 mL/min Vitals: Vitals Signs (last 24 hrs) Last Charted Minimum Maximum Temp 98.4 (SEP 28 07:00) 98.4 (SEP 28 07:00) 98.2 (SEP 27 15:00) Apical HR 84 (SEP 28 08:59) 84 (SEP 28 08:59) 84 (SEP 28 08:59) Mon HR 84 (SEP 28 07:00) 69 (SEP 27 15:00) 88 (SEP 27 19:00) Resp Rate 16 (SEP 28 07:00) 16 (SEP 27 19:00) 18 (SEP 27 15:00) SBP H 167 (SEP 28 07:00) H 142 (SEP 27 15:00) H 167 (SEP 28 07:00) DBP 68 (SEP 28 07:00) 66 (SEP 27 19:00) 77 (SEP 27 15:00) SpO2 96 (SEP 28 07:00) 96 (SEP 28 07:00) 98 (SEP 27 19:00) Cultures: 08/10 blood: MRSA 08/10 urine: Enterococcus 08/19 blood: Enterococcus (vanc S) 08/19 L leg wound: S. epi, MRSA Current antibiotics: Vancomycin 500mg IV q24h (start date 09/14, 09/28 = day 15) Previous antibiotics: Ceftriaxone (08/30-09/02) Ertapenem (08/30-08/31) Daptmycin [...] tr = 14.6 mcg/mL drawn on time A/P: 1. Vancomycin trough level therapeutic 09/26. Drawn prior to 3rd dose of this regimen but do not expect much accumulation. Continue vancomycin 500mg IV q24h. May redraw trough level 09/30. 2. Monitor renal function closely. Some ongoing PILY attributed to sepsis from admission. BMP at least twice weekly on vancomycin. SCr stable at 1.2 today. 3. Abx planned until 10/05 per ID. 4. Pharmacy will continue to follow. Thank you for the consultation, Bethany Mo, SriniD Electronically signed by [facility] Conversion Er Medical Technician Cerner at 07/24/2022 3:48 PM CDT documented in this encounter Plan of Treatment Not on file documented as of this encounter Visit Diagnoses Not on filedocumented in this encounter Care Teams Squirt Machine Operator Relationship Specialty Start Date End Date Juan José Kendall MD [address] [facility] [address] [place] [id number] PCP - General Family Medicine 12/25/22 Juan José Kendall MD [address] [facility] [address] [place] [phone] Referring Physician Family Medicine 12/25/22 documented as of this encounter
--- OUTSIDE RECORDS SUMMARY | 2024-03-11 09:17 | XMS_ITS | Encounter Summary ---
Author Organization [employer] Address [address] [place] [address] Care Team Providers Care Mental Health Therapist Name Role Phone Juan José Kendall MD Primary Care Provider +- [phone] Juan José Kendall MD Unavailable [phone] Encounter Details Date Type Department Care Team (Late st Contact Info) Description 09/24/2018 Transcribed Document [facility] [place] [address] ProviderLaurie MD [address] [place] [address] Social History Tobacco Use Types Packs/Day Years Used Date Smoking Tobacco: Never Assessed Comments Unknown Sex and Gender Information Value Date Recorded Sex Assigned at Not on file Legal Sex Female 2:23 PM CDT Gender Identity Not on file Sexual Orientation Not on file documented as of this encounter Miscellaneous Notes * Cerner Conversion Note - Laurie ProviderMD - 09/24/2018 8:12 AM CDT Patient: TRUDI BLAIR Age: 63 years Sex: Female : 1955 Associated Diagnoses: None Author: RUBY STORY, PharmD, BCPS Consult: vancomycin Consulting physician: Dr. Tavares Indication: [...] 139.5 kg DBW: 91.2 kg Labs: SEP 24 06:35 144 H 115 18 / 89 L 3.4 23 H 1.10 \ Allergies: biaxin I/O: 360 / x5 voids Estimated CrCl: 55-60 mL/min Vitals Signs (last 24 hrs) Last Charted Minimum Maximum Temp 98.4 (SEP 23 23:00) 98.4 (SEP 23 23:00) 98.4 (SEP 23 14:00) Apical HR 83 (SEP 23 08:51) 83 (SEP 23 08:51) 83 (SEP 23 08:51) Mon HR 81 (SEP 23 23:00) 79 (SEP 23 14:00) 82 (SEP 23 19:00) Resp Rate 16 (SEP 23 23:00) 16 (SEP 23 14:00) 16 (SEP 23 14:00) SBP H 147 (SEP 23 23:00) H 145 (SEP 23 08:51) H 150 (SEP 23 19:00) DBP 65 (SEP 23 23:00) 65 (SEP 23 23:00) 86 (SEP 23 14:00) SpO2 97 (SEP 23 23:00) 96 (SEP 23 19:00) 98 (SEP 23 14:00) Cultures: 08/10 blood: MRSA 08/10 urine: Enterococcus 08/19 blood: Enterococcus (vanc S) 08/19 L leg wound: S. epi, MRSA Current antibiotics: Vancomycin 1000mg IV q24h (start date 09/14, 09/24= day 11) Previous antibiotics: Ceftriaxone (08/30-09/02) Ertapenem (08/30-08/31) Daptmycin (08/30-09/14) Vancomycin dosing history: Vancomycin 1250mg IV q24h --> 09/17 tr = 19.3 mcg/mL drawn on time Vancomycin 1000mg IV q24h --> 09/21 tr = 22.7 mcg/mL drawn 2h late, 09/22 random = 19.6 mcg/mL drawn 12.5h after previous level, k = 0.012 h-1 Vancomycin 1000mg IV x1 09/22 @ 0455 --> 09/23 random = 19.8 mcg/mL drawn 15 hours after previous dose --> 09/24 random = 14.3 mcg/ml @ 0659 ,26 hours after previous dose. restart 500mg IV Q24h A/P: 1. Vancomycin 1000mg given 09/22 @ 0455. Random level 14.3 mcg/mL this am drawn 26 hours after dose. Will resume vancomycin at 500mg IV q24h and recheck trough level on 09/26. 2. Monitor renal function closely. Some ongoing PILY attributed to sepsis from admission. BMP at least twice weekly on vancomycin. SCr stable at 1.1 today. 3. Abx planned until 10/05 per ID. Rx to follow, Ruby Story, PharmD [phone] [facility] Conversion Crm Marketing Manager Cerner at 07/24/2022 3:43 PM CDT documented in this encounter Plan of Treatment Not on file documented as of this encounter Visit Diagnoses Not on filedocumented in this encounter Care Teams Mental Health Therapist Relationship Specialty Start Date End Date Juan José Kendall MD [address] [facility] [address] [place] [phone] PCP - General Family Medicine 12/25/22 Juan José Kendall MD [address] [facility] [address] [place] [phone] Referring Physician Family Medicine 12/25/22 documented as of this encounter
--- OUTSIDE RECORDS SUMMARY | 2024-03-11 09:17 | XMS_ITS | Encounter Summary ---
Author Organization [employer] Address [address] [place] [address] Care Team Providers Care Senior Buyer Planner Name Role Phone uJan José Kendall MD Primary Care Provider + [phone] Juan José Kendall MD Unavailable [phone] Encounter Details Date Type Department Care Team (Late st Contact Info) Description 09/23/2018 Transcribed Document [facility] [place] [address] [place] [address] ProviderLaurie MD [address] [place] [address] Social History Tobacco Use Types Packs/Day Years Used Date Smoking Tobacco: Never Assessed Comments Unknown Sex and Gender Information Value Date Recorded Sex Assigned at Not on file Legal Sex Female 2:23 PM CDT Gender Identity Not on file Sexual Orientation Not on file documented as of this encounter Miscellaneous Notes * Cerner Conversion Note - Historical ProviderMD - 09/23/2018 5:00 PM CDT Chart Check - Review Order Profile Entered On: 09/23/2018 16:53 EDT Performed On: 09/23/2018 17:00 EDT by FRANTZ BROWN RN Chart Check Powerplans Initiated/Discontinued as Appropriate : Yes All Active Orders Reviewed : Yes FRANTZ BROWN, RN - 09/23/2018 16:53 EDT documented in this encounter Plan of Treatment Not on file documented as of this encounter Visit Diagnoses Not on filedocumented in this encounter Care Teams Senior Buyer Planner Relationship Specialty Start Date End Date Juan José Kendall MD [address] [place] [phone] PCP - General Family Medicine 12/25/22 Juan José Kendall MD [address] [place] [phone] Referring Physician Family Medicine 12/25/22 documented as of this encounter
--- OUTSIDE RECORDS SUMMARY | 2024-03-11 09:17 | XMS_ITS | Encounter Summary ---
Author Organization [employer] Address [address] [place] [address] Care Team Providers Care Aircraft Mechanic Structures Name Role Phone Juan José Kendall MD Primary Care Provider +- [phone] Juan José Kendall MD Unavailable [phone] Encounter Details Date Type Department Care Team (Late st Contact Info) Description 09/28/2018 Transcribed Document [facility] [place] [address] [place] [address] ProviderLaurie MD [address] [place] [address] Social History Tobacco Use Types Packs/Day Years Used Date Smoking Tobacco: Never Assessed Comments Unknown Sex and Gender Information Value Date Recorded Sex Assigned at Not on file Legal Sex Female 2:23 PM CDT Gender Identity Not on file Sexual Orientation Not on file documented as of this encounter Miscellaneous Notes * Cerner Conversion Note - Historical ProviderMD - 09/28/2018 9:00 AM CDT Pain Assessment Entered On: 09/28/2018 11:22 EDT Performed On: 09/28/2018 9:59 EDT by ALEX LEMUS RN Intervention Information: acetaminophen Performed by ALEX LEMUS RN on 09/28/2018 08:59:00 EDT acetaminophen,500mg Oral Pain Assessment Pain Assessment : Follow-up assessment Pain Scale Goal : 3 Pain Scale Used : 0-10 Scale ALEX LEMUS RN - 09/28/2018 11:22 EDT Pain Scale Intensity : 0 ALEX LEMUS RN - 09/28/2018 11:22 EDT Image 4 - Images currently included in the form version of this document have not been included in the text rendition version of the form. documented in this encounter Plan of Treatment Not on file documented as of this encounter Visit Diagnoses Not on filedocumented in this encounter Care Teams Aircraft Mechanic Structures Relationship Specialty Start Date End Date Juan José Kendall MD [address] [facility] [address] [place] [phone] PCP - General Family Medicine 12/25/22 Juan José Kendall MD [address] [facility] [address] [place] [id number] Referring Physician Family Medicine 12/25/22 documented as of this encounter
--- OUTSIDE RECORDS SUMMARY | 2024-03-11 09:17 | XMS_ITS | Encounter Summary ---
Author Organization [employer] Address [address] [place] [address] Care Team Providers Care Inventory Control Supervisor Name Role Phone Juan José Kendall MD Primary Care Provider + [phone] Juan José Kendall MD Unavailable [phone] Encounter Details Date Type Department Care Team (Late st Contact Info) Description 09/26/2018 Transcribed Document [facility] [place] [address] ProviderLaurie MD [address] [place] [address] Social History Tobacco Use Types Packs/Day Years Used Date Smoking Tobacco: Never Assessed Comments Unknown Sex and Gender Information Value Date Recorded Sex Assigned at Not on file Legal Sex Female 2:23 PM CDT Gender Identity Not on file Sexual Orientation Not on file documented as of this encounter Miscellaneous Notes * Cerner Conversion Note - Historical ProviderMD - 09/26/2018 9:00 PM CDT Patch Check Entered On: 09/27/2018 3:20 EDT Performed On: 09/26/2018 21:00 EDT by Angy Esqueda Rn Patch Check Patch Check Result : Yes Patch Check - Type of Patch : scopolamine (Transderm-Scop) Angy Esqueda Rn - 09/27/2018 3:20 EDT documented in this encounter Plan of Treatment Not on file documented as of this encounter Visit Diagnoses Not on filedocumented in this encounter Care Teams Inventory Control Supervisor Relationship Specialty Start Date End Date Enoch, Juan José H, MD [address] [place] [phone] PCP - General Family Medicine 12/25/22 Juan José Kendall MD [address] [place] [phone] Referring Physician Family Medicine 12/25/22 documented as of this encounter
--- OUTSIDE RECORDS SUMMARY | 2024-03-11 09:17 | XMS_ITS | Encounter Summary ---
Author Organization [employer] Address [address] [facility] [place] [address] Care Team Providers Care Scientific Programmer Name Role Phone Juan José Kendall MD Primary Care Provider +- [phone] Juan José Kendall MD Unavailable [phone] Encounter Details Date Type Department Care Team (Late st Contact Info) Description 09/26/2018 Transcribed Document [facility] [place] [facility] [place] [address] ProviderLaurie MD [address] [place] [id number] Social History Tobacco Use Types Packs/Day Years Used Date Smoking Tobacco: Never Assessed Comments Unknown Sex and Gender Information Value Date Recorded Sex Assigned at Not on file Legal Sex Female 2:23 PM CDT Gender Identity Not on file Sexual Orientation Not on file documented as of this encounter Miscellaneous Notes * Cerner Conversion Note - Historical ProviderMD - 09/26/2018 3:00 PM CDT Pain Assessment Entered On: 09/26/2018 19:22 EDT Performed On: 09/26/2018 15:03 EDT by Renate Wilson RN Intervention Information: acetaminophen Performed by Renate Wilson RN on 09/26/2018 14:03:00 EDT acetaminophen,500mg Oral Pain Assessment Pain Assessment : Follow-up assessment Pain Scale Goal : 3 Pain Scale Used : 0-10 Scale Renate Wilson RN - 09/26/2018 19:22 EDT Pain Scale Intensity : 0 Renate Wilson RN - 09/26/2018 19:22 EDT Image 4 - Images currently included in the form version of this document have not been included in the text rendition version of the form. documented in this encounter Plan of Treatment Not on file documented as of this encounter Visit Diagnoses Not on filedocumented in this encounter Care Teams Scientific Programmer Relationship Specialty Start Date End Date Juan José Kendall MD [address] [facility] [address] [place] [id number] PCP - General Family Medicine 12/25/22 Juan José Kendall MD [address] [place] [address] [address] [place] [id number] Referring Physician Family Medicine 12/25/22 documented as of this encounter
--- OUTSIDE RECORDS SUMMARY | 2024-03-11 09:17 | XMS_ITS | Encounter Summary ---
Author Organization [employer] Address [address] [place] [address] Care Team Providers Care Associate Professor Of Surgery Name Role Phone Juan José Kendall MD Primary Care Provider +- [phone] Juan José Kendall MD Unavailable [phone] Encounter Details Date Type Department Care Team (Late st Contact Info) Description 09/23/2018 Transcribed Document [facility] [place] [facility] [address] ProviderLaurie MD [address] [place] [address] Social History Tobacco Use Types Packs/Day Years Used Date Smoking Tobacco: Never Assessed Comments Unknown Sex and Gender Information Value Date Recorded Sex Assigned at Not on file Legal Sex Female 2:23 PM CDT Gender Identity Not on file Sexual Orientation Not on file documented as of this encounter Miscellaneous Notes * Cerner Conversion Note - Laurie Garcia MD - 09/23/2018 9:10 PM CDT Patient: TRUDI BLAIR Age: 63 [...] pain under control, no trouble w. urination. ???Nausea resolved ???Diarrhea resolved Review of Systems Constitutional: No fever, No [...] Reaction Biaxin Acid reflux Current medications: Medications (36) Active Scheduled: (14) acetaminophen 500 mg tab [...] inj 4 mg 2 mL, IV Push, [id number] pantoprazole EC 40 mg tab 40 mg 1 Tab, Oral, Daily potassium chloride CR 20 mEq tab 20 mEq 1 Tab, Oral, BID saccharomyces boulardii 250 mg cap 250 mg 1 Cap, Oral, Daily scopolamine 1.5 mg/72 hr patch 1 Patch, TransDermal, Q3Days topiramate 25 mg sprinkle cap 25 mg 1 Cap, Oral, BID Vancomycin IV Dosing by Pharmacy ON HOLD, IV Piggyback, Weekly Continuous: (0) PRN: (22) acetaminophen 325 mg tab 650 mg 2 [...] tab 12.5 mg 0.5 Tab, Oral, Q6H sodium phosphate 15 mMole [...] Stress incontinence Physical Examination VS/Measurements Vital Measurements 09/23/2018 19:00 EDT Systolic Blood Pressure 150 mmHg HI Diastolic Blood Pressure 76 mmHg Temperature Source Oral Temperature Mode Fahrenheit Temperature, Fahrenheit 98.3 Deg F Clinical Temperature, C 36.8 Deg C Heart Rate Monitored 82 bpm Respiratory Rate 16 Breaths/Min Oxygen Saturation 96 % General: Alert [...] Review / Management Results review: All Results 09/23/2018 6:08 EDT Sodium Level 146 mmol/L Potassium Level 3.6 mmol/L Chloride Level 115 mmol/L HI Carbon Dioxide Level 25 mmol/L Anion Gap 10 Glucose Level 83 mg/dL Blood Urea Nitrogen 18 mg/dL Creatinine Level 1.10 mg/dL HI eGFR >60 mL/min/1.73m2 eGFR NonAfrican 50 mL/min/1.73m2 LOW Bun/Creatinine 16.4 Calcium Level 8.2 mg/dL LOW Lipase Level 191 Units/Liter Vancomycin Random 19.8 mcg/mL NA 09/22/2018 4:50 EDT Sodium Level 146 mmol/L Potassium Level 3.4 mmol/L LOW Chloride Level 116 mmol/L HI Carbon Dioxide Level 24 mmol/L Anion Gap 9 Glucose Level 87 mg/dL Blood Urea Nitrogen 21 mg/dL Creatinine Level 1.10 mg/dL HI eGFR >60 mL/min/1.73m2 eGFR NonAfrican 50 mL/min/1.73m2 LOW Bun/Creatinine 19.1 Calcium Level 8.2 mg/dL LOW Platelet Count 182 K/uL Vancomycin Random 19.6 mcg/mL NA . Condition: Stable. Impression and Plan Diagnosis [...] antibiotics as recommended by infectious disease -Continue on wound care -Pain control -DVT prophylaxis -Close monitoring fluid and electrolytes -When necessary nebs -Fall risk precautions -Sleep apnea precautions -Stress ulcer prophylaxis. documented in this encounter Plan of Treatment Not on file documented as of this encounter Visit Diagnoses Not on filedocumented in this encounter Care Teams Associate Professor Of Surgery Relationship Specialty Start Date End Date Juan José Kendall MD [address] [facility] [address] [place] [address] PCP - General Family Medicine 12/25/22 Juan José Kendall MD [address] [facility] [address] [place] [address] Referring Physician Family Medicine 12/25/22 documented as of this encounter
--- OUTSIDE RECORDS SUMMARY | 2024-03-11 09:17 | XMS_ITS | Encounter Summary ---
Author Organization [employer] Address [address] [place] [address] Care Team Providers Care Director Mobile Name Role Phone Juan José Kendall MD Primary Care Provider +- [phone] Juan José Kendall MD Unavailable [phone] Encounter Details Date Type Department Care Team (Late st Contact Info) Description 09/29/2018 Transcribed Document [facility] [place] [facility] [place] [address] ProviderLaurie MD [address] [place] [address] Social History Tobacco Use Types Packs/Day Years Used Date Smoking Tobacco: Never Assessed Comments Unknown Sex and Gender Information Value Date Recorded Sex Assigned at Not on file Legal Sex Female 2:23 PM CDT Gender Identity Not on file Sexual Orientation Not on file documented as of this encounter Miscellaneous Notes * Cerner Conversion Note - Historical ProviderMD - 09/29/2018 2:00 AM CDT Automotive Salesperson Details Entered On: 09/29/2018 0:49 EDT Performed On: 09/29/2018 2:00 EDT by FRANCISCO MOREJON RN Order Details Transport Mode Order Detail : Stretcher/Gurney Isolation Precautions Order Detail : Standard Precautions Order Detail : 0 IV Order Detail : 0 Oxygen Order Detail : 0 Nurse Collect Order Detail : 1 Lift/Transfer : Maximal assist Central Line Order Detail : Yes Room Service : Appropriate Arterial Line : No FRANCISCO MOREJON RN - 09/29/2018 0:49 EDT documented in this encounter Plan of Treatment Not on file documented as of this encounter Visit Diagnoses Not on filedocumented in this encounter Care Teams Director Mobile Relationship Specialty Start Date End Date Juan José Kendall MD [address] [facility] [address] [place] [id number] PCP - General Family Medicine 12/25/22 Juan José Kendall MD [address] [facility] [address] [place] [phone] Referring Physician Family Medicine 12/25/22 documented as of this encounter
--- OUTSIDE RECORDS SUMMARY | 2024-03-11 09:17 | XMS_ITS | Encounter Summary ---
Author Organization [employer] Address [address] [place] [address] Care Team Providers Care Stencil Maker Name Role Phone Juan José Kendall MD Primary Care Provider +- [phone] Juan José Kendall MD Unavailable [phone] Encounter Details Date Type Department Care Team (Late st Contact Info) Description 09/23/2018 Transcribed Document [facility] [place] [facility] [place] [address] ProviderLaurie MD [address] [place] [id number] Social History Tobacco Use Types Packs/Day Years Used Date Smoking Tobacco: Never Assessed Comments Unknown Sex and Gender Information Value Date Recorded Sex Assigned at Not on file Legal Sex Female 2:23 PM CDT Gender Identity Not on file Sexual Orientation Not on file documented as of this encounter Miscellaneous Notes * Cerner Conversion Note - Historical ProviderMD - 09/23/2018 3:00 AM CDT Nutrition Assessment Entered On: 09/23/2018 14:15 EDT Performed On: 09/23/2018 15:19 EDT by Nery Mckee Composite Layup Worker Nutrition Assessment Current Nutrition Regimen Comment : 09/23: RD ordered new wt. Pt states poor appetite but is drinking ensure and simón. Pt requesting ensure w/breakfast only. Pt also confirmed preferred flavors and RD confirmed in health touch. 09/16: Attempted to see pt - working with other provider at the time. RN reports pt's nausea/diarrhea has subsided for the last 24+ hours. RN also reported that pt has not complained of her supplements being the wrong flavor and is drinking 100%. Requested pt being weighed to monitor nutrition status- RN agreeable, plans to weigh pt today. Dx: sepsis, left prosthetic knee infection, prolonged IV abx PMH: GERD, high cholesterol, HTN, morbid obesity Labs: Cr 1.1 Meds: Statin, heparin, Zofran, KCl, florastor, abx, prn pain Skin: L knee medial +NPWT, bilat medial upper thighs stage 1, left posterior heel stage 1; anasarca, 1+ trace edema GI: LBM 09/23, active BS Diet: Regular, Ensure Enlive BID (chocolate @ B+ D), Simón BID Intake: avg 72% x 3 meals Supplement Intake: 100% x 1 Ht: 168cm (5'6) Wt: 140kg/308#, no new wt (09/12), no new wt (09/16), no new wt (09/23) Wt Hx: 265# (06/23), 123kg/270# (08/30/18) Nery Mckee Dietician - 09/23/2018 15:18 EDT Nutrition Assessment Reason : Follow Up Nery Mckee Dietician - 09/23/2018 14:15 EDT Nutrition Diagnoses Nutrient Intake : Increased nutrient needs Nutrient Intake Related to : skin integrity Nutrient Intake As Evidenced by : L knee medial +NPWT, left heel unstageable, bilat medial upper thighs stage 1, left posterior heel stage 2 Nutrient Intake Status : Active Increased Nutrient Needs Comment : protein, kcal Nery Mckee Dietician - 09/23/2018 14:15 EDT Nutrition Interventions Meals and Snacks : General/Healthful diet Meals and Snacks Other Comment : ensure+ simón Nutrition Supplement Therapy : Commercial beverage Nery Mckee Dietician - 09/23/2018 14:15 EDT Monitoring/Evaluation Energy Intake : Total energy intake Weight Status : Weight Maintanence Gastrointestinal Function : Bowel Function Integumentary : Pressure Ulcer Status Nery Mckee Dietician - 09/23/2018 14:15 EDT Nutrition Recommendations Dietitian Recommendations : 1. Continue current diet w/ Ensure Enlive daily and Simón BID - encourage supplement use. Goal: Po intake>50%, supplement use 2. Obtain wt weekly. Goal: no signficant unintended wt changes, beneficial wt loss encouraged Nutrition Care Level : Nery Hernandez, Composite Layup Worker - 09/23/2018 15:18 EDT documented in this encounter Plan of Treatment Not on file documented as of this encounter Visit Diagnoses Not on filedocumented in this encounter Care Teams Stencil Maker Relationship Specialty Start Date End Date Juan José Kendall MD [address] [facility] [address] [place] [id number] PCP - General Family Medicine 12/25/22 [place] [address] [place] [address] [address] [place] [phone] Referring Physician Family Medicine 12/25/22 documented as of this encounter
--- OUTSIDE RECORDS SUMMARY | 2024-03-11 09:17 | XMS_ITS | Encounter Summary ---
Author Organization [employer] Address [address] [place] [address] Care Team Providers Care Police Commissioner Name Role Phone Juan José Kendall MD Primary Care Provider + [phone] Juan José Kendall MD Unavailable [phone] Encounter Details Date Type Department Care Team (Late st Contact Info) Description 09/29/2018 Transcribed Document [facility] [place] [facility] [place] [address] ProviderLaurie MD [address] [place] [address] Social History Tobacco Use Types Packs/Day Years Used Date Smoking Tobacco: Never Assessed Comments Unknown Sex and Gender Information Value Date Recorded Sex Assigned at Not on file Legal Sex Female 2:23 PM CDT Gender Identity Not on file Sexual Orientation Not on file documented as of this encounter Miscellaneous Notes * Cerner Conversion Note - Historical ProviderMD - 09/29/2018 6:00 PM CDT Patch Check Entered On: 09/29/2018 17:49 EDT Performed On: 09/29/2018 18:00 EDT by FRANTZ BROWN, RN Patch Check Patch Check Result : Yes Patch Check - Type of Patch : scopolamine (Transderm-Scop) FRANTZ BROWN, RN - 09/29/2018 17:49 EDT documented in this encounter Plan of Treatment Not on file documented as of this encounter Visit Diagnoses Not on filedocumented in this encounter Care Teams Police Commissioner Relationship Specialty Start Date End Date Enoch, Juan José H, MD [address] [place] [id number] PCP - General Family Medicine 12/25/22 Juan José Kendall MD [address] [place] [phone] Referring Physician Family Medicine 12/25/22 documented as of this encounter
--- OUTSIDE RECORDS SUMMARY | 2024-03-11 09:17 | XMS_ITS | Encounter Summary ---
Author Organization [employer] Address [address] [facility] [place] [address] Care Team Providers Care Cafeteria Food Server Name Role Phone Juan José Kendall MD Primary Care Provider +- [phone] Juan José Kendall MD Unavailable [phone] Encounter Details Date Type Department Care Team (Late st Contact Info) Description 09/23/2018 Transcribed Document [facility] [place] Family Medicine [address] [place] [address] ProviderLaurie MD [address] [place] [address] Social History Tobacco Use Types Packs/Day Years Used Date Smoking Tobacco: Never Assessed Comments Unknown Sex and Gender Information Value Date Recorded Sex Assigned at Not on file Legal Sex Female 2:23 PM CDT Gender Identity Not on file Sexual Orientation Not on file documented as of this encounter Miscellaneous Notes * Cerner Conversion Note - Laurie ProviderMD - 09/23/2018 9:00 AM CDT Pain Assessment Entered On: 09/23/2018 10:19 EDT Performed On: 09/23/2018 9:51 EDT by FRANTZ BROWN, RN Intervention Information: acetaminophen Performed by FRANTZ BROWN, RN on 09/23/2018 08:51:00 EDT acetaminophen,500mg Oral Pain Assessment Pain Scale Goal : 3 Pain Scale Used : 0-10 Scale FRANTZ BROWN RN - 09/23/2018 10:19 EDT Pain Scale Intensity : 0 FRANTZ BROWN RN - 09/23/2018 10:19 EDT Image 4 - Images currently included in the form version of this document have not been included in the text rendition version of the form. documented in this encounter Plan of Treatment Not on file documented as of this encounter Visit Diagnoses Not on filedocumented in this encounter Care Teams Cafeteria Food Server Relationship Specialty Start Date End Date Juan José Kendall MD [address] [facility] [address] [place] [phone] PCP - General Family Medicine 12/25/22 Juan José Kendall MD [address] [facility] [address] [place] [phone] Referring Physician Family Medicine 12/25/22 documented as of this encounter
--- OUTSIDE RECORDS SUMMARY | 2024-03-11 09:17 | XMS_ITS | Encounter Summary ---
Author Organization [employer] Address [address] [facility] [place] [address] Care Team Providers Care Escrow Assistant Name Role Phone Juan José Kendall MD Primary Care Provider + [phone] Juan José Kendall MD Unavailable [phone] Encounter Details Date Type Department Care Team (Late st Contact Info) Description 09/29/2018 Transcribed Document [facility] [place] [facility] [place] [address] ProviderLaurie MD [address] [place] [address] Social History Tobacco Use Types Packs/Day Years Used Date Smoking Tobacco: Never Assessed Comments Unknown Sex and Gender Information Value Date Recorded Sex Assigned at Not on file Legal Sex Female 2:23 PM CDT Gender Identity Not on file Sexual Orientation Not on file documented as of this encounter Miscellaneous Notes * Cerner Conversion Note - Historical ProviderMD - 09/29/2018 12:11 PM CDT Event Note Entered On: 09/29/2018 12:13 EDT Performed On: 09/29/2018 12:11 EDT by FRANTZ BROWN RN Event Note Event Date/Time : 09/29/2018 10:00 EDT Description of Event : Called and left message with Dr Guerrero's nurse Ghada [phone] ext. [phone] reguarding when mihaela can be removed from left knee. awaiting call back. FRANTZ BROWN RN - 09/29/2018 12:11 EDT Electronically signed by Aleks [facility] Conversion Pathology Teacher Cerner at 07/24/2022 3:47 PM CDT documented in this encounter Plan of Treatment Not on file documented as of this encounter Visit Diagnoses Not on filedocumented in this encounter Care Teams Escrow Assistant Relationship Specialty Start Date End Date Juan José Kendall MD [address] [facility] [address] [place] [address] PCP - General Family Medicine 12/25/22 Juan José Kendall MD [address] [facility] [address] [place] [phone] Referring Physician Family Medicine 12/25/22 documented as of this encounter
--- OUTSIDE RECORDS SUMMARY | 2024-03-11 09:17 | XMS_ITS | Encounter Summary ---
Author Organization [employer] Address [address] [facility] [place] [address] Care Team Providers Care Automotive Drivability Technician Name Role Phone Juan José Kendall MD Primary Care Provider +- [phone] Juan José Kendall MD Unavailable [phone] Encounter Details Date Type Department Care Team (Late st Contact Info) Description 09/26/2018 Transcribed Document [facility] [place] [address] ProviderLaurie MD [address] [place] [id number] Social History Tobacco Use Types Packs/Day Years Used Date Smoking Tobacco: Never Assessed Comments Unknown Sex and Gender Information Value Date Recorded Sex Assigned at Not on file Legal Sex Female 2:23 PM CDT Gender Identity Not on file Sexual Orientation Not on file documented as of this encounter Miscellaneous Notes * Cerner Conversion Note - Historical ProviderMD - 09/26/2018 9:00 AM CDT Pain Assessment Entered On: 09/26/2018 12:33 EDT Performed On: 09/26/2018 11:11 EDT by Renate Wilson RN Intervention Information: acetaminophen Performed by ENOCH PERDOMO LPN on 09/26/2018 10:11:00 EDT acetaminophen,500mg Oral Pain Assessment Pain Assessment : Follow-up assessment Pain Scale Goal : 3 Pain Scale Used : 0-10 Scale Renate Wilson RN - 09/26/2018 12:33 EDT Pain Scale Intensity : 0 Renate Wilson RN - 09/26/2018 12:33 EDT Image 4 - Images currently included in the form version of this document have not been included in the text rendition version of the form. documented in this encounter Plan of Treatment Not on file documented as of this encounter Visit Diagnoses Not on filedocumented in this encounter Care Teams Automotive Drivability Technician Relationship Specialty Start Date End Date Juan José Kendall MD 12[address] [facility] [address] [place] [phone] PCP - General Family Medicine 12/25/22 Juan José Kendall MD [address] [place] [address] [address] [place] [phone] Referring Physician Family Medicine 12/25/22 documented as of this encounter
--- OUTSIDE RECORDS SUMMARY | 2024-03-11 09:17 | XMS_ITS | Encounter Summary ---
Author Organization [employer] Address [address] [place] [address] Care Team Providers Care Sole Buffer Name Role Phone Juan José Kendall MD Primary Care Provider + [phone] Juan José Kendall MD Unavailable [phone] Encounter Details Date Type Department Care Team (Late st Contact Info) Description 09/29/[address] [facility] [place] [facility] [place] [address] ProviderLaurie MD [address] [place] [address] Social History Tobacco Use Types Packs/Day Years Used Date Smoking Tobacco: Never Assessed Comments Unknown Sex and Gender Information Value Date Recorded Sex Assigned at Not on file Legal Sex Female 2:23 PM CDT Gender Identity Not on file Sexual Orientation Not on file documented as of this encounter Miscellaneous Notes * Cerner Conversion Note - Laurie Garcia MD - 09/29/2018 12:13 PM CDT Patient: TRUDI BLAIR Age: 63 [...] pain under control, no trouble w. urination. ???Participating with PT/OT ???Sitting is the side of the vent ???No nausea no vomiting no diarrhea Review of Systems Constitutional: No fever, No [...] inj 4 mg 2 mL, IV Push, [id number] pantoprazole EC 40 mg tab 40 mg [...] Stress incontinence Physical Examination VS/Measurements Vital Measurements 09/29/2018 7:00 EDT Systolic Blood Pressure 149 mmHg HI Diastolic Blood Pressure 64 mmHg Temperature Source Oral Temperature Mode Fahrenheit Temperature, Fahrenheit 97.9 Deg F Clinical Temperature, C 36.6 Deg C Heart Rate Monitored 77 bpm Respiratory Rate 14 Breaths/Min Oxygen Saturation 96 % General: Alert [...] Review / Management Results review: All Results 09/29/2018 4:38 EDT Sodium Level 144 mmol/L [...] 17.9 % LOW Lymph # 1.10 x10(3)/uL [place] % 9.1 % HI [place] # 0.56 K/uL Eos % 8.0 % HI Eos # 0.49 x10(3)/uL Baso % 0.7 % Baso # 0.04 x10(3)/uL Slide Review No IG# 0.03 x10(3)/uL IG% 0.50 % 09/28/2018 5:41 EDT Sodium Level 143 mmol/L Potassium Level 3.4 mmol/L LOW Chloride Level 113 mmol/L HI Carbon Dioxide Level 25 mmol/L Anion Gap 8 LOW Glucose Level 90 mg/dL Blood Urea Nitrogen 15 mg/dL Creatinine Level 1.20 mg/dL HI eGFR 55 mL/min/1.73m2 LOW eGFR NonAfrican 45 mL/min/1.73m2 LOW Bun/Creatinine 12.5 Calcium Level 8.4 mg/dL Platelet Count 180 K/uL . Condition: Stable. Impression and Plan [...] necessary nebs -Fall risk precautions -Sleep apnea precautions. documented in this encounter Plan of Treatment Not on file documented as of this encounter Visit Diagnoses Not on filedocumented in this encounter Care Teams Sole Buffer Relationship Specialty Start Date End Date Juan José Kendall MD [address] [facility] [address] [place] [phone] PCP - General Family Medicine 12/25/22 Juan José Kendall MD [facility] [facility] [address] [place] [phone] Referring Physician Family Medicine 12/25/22 documented as of this encounter
--- OUTSIDE RECORDS SUMMARY | 2024-03-11 09:17 | XMS_ITS | Encounter Summary ---
Author Organization [employer] In iatives Address [address] [place] [address] Care Team Providers Care Color Strainer Name Role Phone Juan José Kendall MD Primary Care Provider + [phone] Juan José Kendall MD Unavailable [phone] Encounter Details Date Type Department Care Team (Late st Contact Info) Description 09/25/2018 Transcribed Document [facility] [place] [facility] [place] [address] ProviderLaurie MD [address] [place] [address] Social History Tobacco Use Types Packs/Day Years Used Date Smoking Tobacco: Never Assessed Comments Unknown Sex and Gender Information Value Date Recorded Sex Assigned at Not on file Legal Sex Female 2:23 PM CDT Gender Identity Not on file Sexual Orientation Not on file documented as of this encounter Miscellaneous Notes * Cerner Conversion Note - Historical ProviderMD - 09/25/2018 9:00 PM CDT Patch Check Entered On: 09/26/2018 4:00 EDT Performed On: 09/25/2018 21:00 EDT by Angy Esqueda Rn Patch Check Patch Check Result : Yes Patch Check - Type of Patch : scopolamine (Transderm-Scop) Angy Esqueda Rn - 09/26/2018 4:00 EDT documented in this encounter Plan of Treatment Not on file documented as of this encounter Visit Diagnoses Not on filedocumented in this encounter Care Teams Color Strainer Relationship Specialty Start Date End Date Enoch, Juan José H, MD [address] [place] [address] PCP - General Family Medicine 12/25/22 Juan José Kendall MD [address] [place] [address] Referring Physician Family Medicine 12/25/22 documented as of this encounter
--- OUTSIDE RECORDS SUMMARY | 2024-03-11 09:17 | XMS_ITS | Encounter Summary ---
Author Organization [employer] In iatives Address [address] [place] [address] Care Team Providers Care Maintenance Of Way Foreman Name Role Phone Juan José Kendall MD Primary Care Provider + [phone] Juan José Kendall MD Unavailable [phone] Encounter Details Date Type Department Care Team (Late st Contact Info) Description 09/27/2018 Transcribed Document [facility] [place] [address] [place] [address] ProviderLaurie MD [address] [place] [address] Social History Tobacco Use Types Packs/Day Years Used Date Smoking Tobacco: Never Assessed Comments Unknown Sex and Gender Information Value Date Recorded Sex Assigned at Not on file Legal Sex Female 2:23 PM CDT Gender Identity Not on file Sexual Orientation Not on file documented as of this encounter Miscellaneous Notes * Cerner Conversion Note - Laurie ProviderMD - 09/27/2018 5:00 AM CDT Chart Check - Review Order Profile Entered On: 09/27/2018 3:21 EDT Performed On: 09/27/2018 5:00 EDT by Angy Esqueda Rn Chart Check Powerplans Initiated/Discontinued as Appropriate : Yes All Active Orders Reviewed : Yes Angy Esqueda Rn - 09/27/2018 3:21 EDT Electronically signed by Aleks [facility] Conversion Inspector Toys Cerner at 07/24/2022 3:48 PM CDT documented in this encounter Plan of Treatment Not on file documented as of this encounter Visit Diagnoses Not on filedocumented in this encounter Care Teams Maintenance Of Way Foreman Relationship Specialty Start Date End Date Juan José Kendall MD [address] [place] [address] PCP - General Family Medicine 12/25/22 Juan José Kendall MD [address] [place] [id number] Referring Physician Family Medicine 12/25/22 documented as of this encounter
--- OUTSIDE RECORDS SUMMARY | 2024-03-11 09:17 | XMS_ITS | Encounter Summary ---
Author Organization [employer] Init [employer] Address [address] [place] [address] Care Team Providers Care Salmon Troll Fisher Name Role Phone Juan José Kendall MD Primary Care Provider +- [phone] Juan José Kendall MD Unavailable [phone] Encounter Details Date Type Department Care Team (Late st Contact Info) Description 09/25/[address] [facility] [place] [facility] [address] ProviderLaurie MD [address] [place] [address] Social History Tobacco Use Types Packs/Day Years Used Date Smoking Tobacco: Never Assessed Comments Unknown Sex and Gender Information Value Date Recorded Sex Assigned at Not on file Legal Sex Female 2:23 PM CDT Gender Identity Not on file Sexual Orientation Not on file documented as of this encounter Miscellaneous Notes * Cerner Conversion Note - Historical ProviderMD - 09/25/2018 9:00 AM CDT Pain Assessment Entered On: 09/25/2018 16:10 EDT Performed On: 09/25/2018 9:56 EDT by Renate Wilson RN Intervention Information: acetaminophen Performed by Renate Wilson RN on 09/25/2018 08:56:00 EDT acetaminophen,500mg Oral Pain Assessment Pain Assessment : Follow-up assessment Pain Scale Goal : 3 Pain Scale Used : 0-10 Scale Renate Wilson RN - 09/25/2018 16:09 EDT Pain Scale Intensity : 2 Renate Wilson RN - 09/25/2018 16:09 EDT Image 4 - Images currently included in the form version of this document have not been included in the text rendition version of the form. documented in this encounter Plan of Treatment Not on file documented as of this encounter Visit Diagnoses Not on filedocumented in this encounter Care Teams Salmon Troll Fisher Relationship Specialty Start Date End Date Juan José Kendall MD [address] [facility] [address] [place] [id number] PCP - General Family Medicine 12/25/22 Juan José Kendall MD [address] [place] [address] [address] [place] [phone] Referring Physician Family Medicine 12/25/22 documented as of this encounter
--- OUTSIDE RECORDS SUMMARY | 2024-03-11 09:17 | XMS_ITS | Encounter Summary ---
Author Organization [employer] In iatives Address [address] [place] [address] Care Team Providers Care Chemical Waste Management Technician Name Role Phone Juan José Kendall MD Primary Care Provider + [phone] Juan José Kendall MD Unavailable [phone] Encounter Details Date Type Department Care Team (Late st Contact Info) Description 09/24/2018 Transcribed Document [facility] [place] [facility] [place] [address] ProviderLaurie MD [address] [place] [address] Social History Tobacco Use Types Packs/Day Years Used Date Smoking Tobacco: Never Assessed Comments Unknown Sex and Gender Information Value Date Recorded Sex Assigned at Not on file Legal Sex Female 2:23 PM CDT Gender Identity Not on file Sexual Orientation Not on file documented as of this encounter Miscellaneous Notes * Cerner Conversion Note - Laurie Garcia MD - 09/24/2018 5:40 PM CDT Patient: TRUDI BLAIR Age: 63 [...] HIDALGO MD-INT Basic Information awake alert comfortable, ???No nausea, vomiting ???No diarrhea ???No trouble with urination ???Has flatulence Review of Systems Constitutional: No fever, No [...] inj 4 mg 2 mL, IV Push, [id number] pantoprazole EC 40 mg tab 40 mg [...] Stress incontinence Physical Examination VS/Measurements Vital Measurements 09/24/2018 15:00 EDT Systolic Blood Pressure 145 mmHg HI Diastolic Blood Pressure 68 mmHg Temperature Source Oral Temperature Mode Fahrenheit Temperature, Fahrenheit 98.6 Deg F Clinical Temperature, C 37 Deg C Heart Rate Monitored 73 bpm Respiratory Rate 16 Breaths/Min Oxygen Saturation 97 % General: Alert [...] Review / Management Results review: All Results 09/24/2018 6:35 EDT Sodium Level 144 mmol/L Potassium Level 3.4 mmol/L LOW Chloride Level 115 mmol/L HI Carbon Dioxide Level 23 mmol/L Anion Gap 9 Glucose Level 89 mg/dL Blood Urea Nitrogen 18 mg/dL Creatinine Level 1.10 mg/dL HI eGFR >60 mL/min/1.73m2 eGFR NonAfrican 50 mL/min/1.73m2 LOW Bun/Creatinine 16.4 Calcium Level 8.4 mg/dL Platelet Count 185 K/uL Vancomycin Random 14.3 mcg/mL NA 09/23/2018 6:08 EDT Sodium Level 146 mmol/L Potassium Level 3.6 mmol/L Chloride Level 115 mmol/L HI Carbon Dioxide Level 25 mmol/L Anion Gap 10 Glucose Level 83 mg/dL Blood Urea Nitrogen 18 mg/dL Creatinine Level 1.10 mg/dL HI eGFR >60 mL/min/1.73m2 eGFR NonAfrican 50 mL/min/1.73m2 LOW Bun/Creatinine 16.4 Calcium Level 8.2 mg/dL LOW Lipase Level 191 Units/Liter Vancomycin Random 19.8 mcg/mL NA . Condition: Stable. Impression and [...] on filedocumented in this encounter Care Teams Chemical Waste Management Technician Relationship Specialty Start Date End Date Juan José Kendall MD [address] [facility] [address] [place] [phone] PCP - General Family Medicine 12/25/22 Juan José Kendall MD [facility] [address] [place] [phone] Referring Physician Family Medicine 12/25/22 documented as of this encounter
--- OUTSIDE RECORDS SUMMARY | 2024-03-11 09:17 | XMS_ITS | Encounter Summary ---
Author Organization [employer] In [employer]atives Address [address] [place] [address] Care Team Providers Care Station Master Name Role Phone Juan José Kendall MD Primary Care Provider + [phone] Juan José Kendall MD Unavailable [phone] Encounter Details Date Type Department Care Team (Late st Contact Info) Description 09/28/2018 Transcribed Document [facility] [place] [address] [place] [address] ProviderLaurie MD [address] [place] [address] Social History Tobacco Use Types Packs/Day Years Used Date Smoking Tobacco: Never Assessed Comments Unknown Sex and Gender Information Value Date Recorded Sex Assigned at Not on file Legal Sex Female 2:23 PM CDT Gender Identity Not on file Sexual Orientation Not on file documented as of this encounter Miscellaneous Notes * Cerner Conversion Note - Laurie ProviderMD - 09/28/2018 5:00 AM CDT Chart Check - Review Order Profile Entered On: 09/28/2018 4:43 EDT Performed On: 09/28/2018 5:00 EDT by Angy Esqueda Rn Chart Check Powerplans Initiated/Discontinued as Appropriate : Yes All Active Orders Reviewed : Yes Angy Esqueda Rn - 09/28/2018 4:43 EDT documented in this encounter Plan of Treatment Not on file documented as of this encounter Visit Diagnoses Not on filedocumented in this encounter Care Teams Station Master Relationship Specialty Start Date End Date Juan José Kendall MD [address] [place] [id number] PCP - General Family Medicine 12/25/22 Juan José Kendall MD [address] [place] [phone] Referring Physician Family Medicine 12/25/22 documented as of this encounter
--- OUTSIDE RECORDS SUMMARY | 2024-03-11 09:17 | XMS_ITS | Encounter Summary ---
Author Organization [employer] Address [address] [place] [address] Care Team Providers Care Electronic Integrated Systems Mechanic Name Role Phone Juan José Kendall MD Primary Care Provider +- [phone] Juan José Kendall MD Unavailable [phone] Encounter Details Date Type Department Care Team (Late st Contact Info) Description 09/27/2018 Transcribed Document [facility] [place] [facility] [place] [address] ProviderLaurie MD [address] [place] [address] Social History Tobacco Use Types Packs/Day Years Used Date Smoking Tobacco: Never Assessed Comments Unknown Sex and Gender Information Value Date Recorded Sex Assigned at Not on file Legal Sex Female 2:23 PM CDT Gender Identity Not on file Sexual Orientation Not on file documented as of this encounter Miscellaneous Notes * Cerner Conversion Note - Historical ProviderMD - 09/27/2018 3:00 PM CDT Pain Assessment Entered On: 09/27/2018 17:05 EDT Performed On: 09/27/2018 16:11 EDT by FRANTZ BROWN, RN Intervention Information: acetaminophen Performed by FRANTZ BROWN, RN on 09/27/2018 15:11:00 EDT acetaminophen,500mg Oral Pain Assessment Pain Assessment : Follow-up assessment Pain Scale Goal : 3 Pain Scale Used : 0-10 Scale FRANTZ BROWN RN - 09/27/2018 17:05 EDT Pain Scale Intensity : 0 FRANTZ BROWN RN - 09/27/2018 17:05 EDT Image 4 - Images currently included in the form version of this document have not been included in the text rendition version of the form. documented in this encounter Plan of Treatment Not on file documented as of this encounter Visit Diagnoses Not on filedocumented in this encounter Care Teams Electronic Integrated Systems Mechanic Relationship Specialty Start Date End Date Juan José Kendall MD [address] [facility] [address] [place] [phone] PCP - General Family Medicine 12/25/22 Juan José Kendall MD [address] [facility] [address] [place] [phone] Referring Physician Family Medicine 12/25/22 documented as of this encounter
--- OUTSIDE RECORDS SUMMARY | 2024-03-11 09:17 | XMS_ITS | Encounter Summary ---
Author Organization [employer] In [employer]atives Address [address] [place] [address] Care Team Providers Care Corporate Services Manager Name Role Phone Juan José Kendall MD Primary Care Provider + [phone] Juan José Kendall MD Unavailable [phone] Encounter Details Date Type Department Care Team (Late st Contact Info) Description 09/29/2018 Transcribed Document [facility] [place] [facility] [place] [address] ProviderLaurie MD [address] [place] [address] Social History Tobacco Use Types Packs/Day Years Used Date Smoking Tobacco: Never Assessed Comments Unknown Sex and Gender Information Value Date Recorded Sex Assigned at Not on file Legal Sex Female 2:23 PM CDT Gender Identity Not on file Sexual Orientation Not on file documented as of this encounter Miscellaneous Notes * Cerner Conversion Note - Laurie ProviderMD - 09/29/2018 5:00 AM CDT Chart Check - Review Order Profile Entered On: 09/29/2018 3:46 EDT Performed On: 09/29/2018 5:00 EDT by FRANCISCO MOREJON RN Chart Check Powerplans Initiated/Discontinued as Appropriate : Yes All Active Orders Reviewed : Yes FRANCISCO MOREJON RN - 09/29/2018 3:46 EDT documented in this encounter Plan of Treatment Not on file documented as of this encounter Visit Diagnoses Not on filedocumented in this encounter Care Teams Corporate Services Manager Relationship Specialty Start Date End Date Juan José Kendall MD [address] [place] [phone] PCP - General Family Medicine 12/25/22 Juan José Kendall MD [address] [place] [phone] Referring Physician Family Medicine 12/25/22 documented as of this encounter
--- OUTSIDE RECORDS SUMMARY | 2024-03-11 09:17 | XMS_ITS | Encounter Summary ---
Author Organization [employer] In [employer]atives Address [address] [place] [address] Care Team Providers Care Certified Low Vision Therapist Name Role Phone Juan José Kendall MD Primary Care Provider + [phone] Juan José Kendall MD Unavailable [phone] Encounter Details Date Type Department Care Team (Late st Contact Info) Description 09/23/2018 Transcribed Document [facility] [place] [address] ProviderLaurie MD [address] [place] [address] Social History Tobacco Use Types Packs/Day Years Used Date Smoking Tobacco: Never Assessed Comments Unknown Sex and Gender Information Value Date Recorded Sex Assigned at Not on file Legal Sex Female 2:23 PM CDT Gender Identity Not on file Sexual Orientation Not on file documented as of this encounter Miscellaneous Notes * Cerner Conversion Note - Historical ProviderMD - 09/23/2018 3:15 PM CDT Spiritual Care Short Form Entered On: 09/23/2018 16:04 EDT Performed On: 09/23/2018 15:15 EDT by MOHINDER MARTINES General Information, Spiritual Care Intervention/Comment/Summary Points : Routine visit; Provided pastoral prayer; Ms. Blair and expressed gratitude [employer] Preference : MOHINDER Griffiths - 09/23/2018 16:03 EDT documented in this encounter Plan of Treatment Not on file documented as of this encounter Visit Diagnoses Not on filedocumented in this encounter Care Teams Certified Low Vision Therapist Relationship Specialty Start Date End Date Juan José Kendall MD [address] [place] [phone] PCP - General Family Medicine 12/25/22 Juan José Kendall MD [address] [place] [phone] Referring Physician Family Medicine 12/25/22 documented as of this encounter
--- OUTSIDE RECORDS SUMMARY | 2024-03-11 09:17 | XMS_ITS | Encounter Summary ---
Author Organization [employer] In [employer] Address [address] [place] [address] Care Team Providers Care Painter And Decorator Name Role Phone Juan José Kendall MD Primary Care Provider +- [phone] Juan José Kendall MD Unavailable [phone] Encounter Details Date Type Department Care Team (Late st Contact Info) Description 09/26/2018 Transcribed Document [facility] [place] [facility] [place] [address] ProviderLaurie MD [address] [place] [address] Social History Tobacco Use Types Packs/Day Years Used Date Smoking Tobacco: Never Assessed Comments Unknown Sex and Gender Information Value Date Recorded Sex Assigned at Not on file Legal Sex Female 2:23 PM CDT Gender Identity Not on file Sexual Orientation Not on file documented as of this encounter Miscellaneous Notes * Cerner Conversion Note - Laurie ProviderMD - 09/26/2018 11:53 AM CDT Patient: TRUDI BLAIR Age: 63 years Sex: Female : 1955 Associated Diagnoses: None Author: AMRITA BARNARD MD Abx: CC: left leg pain Subjective: 08/30/18: Trudi Blair is a 63 yo woman with pmh of GERD, HTN, HLD, and left TKA in 2017 who was doing well until she had a left patellar tendon rupture in 06/2018 and was taken to the OR by Dr. Guerrero for tendon repair. She was more recently admitted to [facility] x2 earlier this month on 08/16 [...] no drainage or redness. No new rashes ROS: As above Past Medical History: Arthritis Back pain GERD HLD NUVIA HTN Stress incontinence Past Surgical History: Left TKA, 2017 left patellar tendon repair, 06/2018 lumbar fusion hysterectomy right TKA right patellar tendon repair Family History: CAD HTN Cancer Social History: . lives in [place]. No tobacco, ETOH, or illicit drug use. Social & Psychosocial Habits Alcohol 06/23/2018 Alcohol Use History, Social Habits No Substance Abuse 06/23/2018 Recreational Drug Use History No Tobacco 06/23/2018 Smoking Status Never (less than 100 in l Smokeless Tobacco Status Never Objective: Vitals Signs (last 24 hrs) Last Charted Minimum Maximum Temp 98.1 (SEP 26 07:46) 97.4 (SEP 25 23:00) 98.2 (SEP 25 15:47) Apical HR 83 (SEP 24 10:11) 83 (SEP 24 10:11) 83 (SEP 24 10:11) Mon HR 83 (SEP 26 07:46) 68 (SEP 25 15:47) 83 (SEP 26 07:46) Resp Rate 19 (SEP 26 07:46) 16 (SEP 25 15:47) 19 (SEP 26 07:46) SBP H 160 (SEP 24 10:11) 138 (SEP 25 23:00) H 167 (SEP 25 19:00) DBP 74 (SEP 24 10:11) 64 (SEP 25 23:00) 74 (SEP 25 19:00) MAP 93 (SEP 26 07:46) 91 (SEP 25 15:47) 93 (SEP 26 07:46) SpO2 94 (SEP 26 07:46) 94 (SEP 26 07:46) 98 (SEP 25 15:47) PE: General: patient is alert and in [...] has been removed and dressing in place. I visualized the recent picture of her wound and incision site is intact with no erythema, induration, or drainage noted. Neuro: Alert and oriented x3. No focal deficits. Skin: Without rash; c/d/i groshong cath site over right chest is without erythema LABS: Labs (Last four charted values) WBC 5.8 (EDGARD 24) 5.7 (EDGARD 17) 7.0 (EDGARD 14) 7.2 (EDGARD 10) HB L 8.3 (EDGARD 24) L 8.2 (EDGARD 17) L 8.6 (EDGARD 14) L 8.2 (EDGARD 10) HCT L 26.3 (EDGARD 24) L 26.3 (EDGARD 17) L 27.2 (EDGARD 14) L 26.4 (EDGARD 10) Plt 186 (EDGARD 24) 185 (EDGARD 22) 182 (EDGARD 20) 170 (EDGARD 18) Na 145 (EDGARD 24) 145 (EDGARD 23) 144 (EDGARD 22) 146 (EDGARD 21) K 3.5 (EDGARD 24) 3.6 (EDGARD 23) L 3.4 (EDGARD 22) 3.6 (EDGARD 21) Cl H 115 (EDGARD 24) H 115 (EDGARD 23) H 115 (EDGARD 22) H 115 (EDGARD 21) CO2 24 (EDGARD 24) 24 (EDGARD 23) 23 (EDGARD 22) 25 (EDGARD 21) BUN 13 (EDGARD 24) 15 (EDGARD 23) 18 (EDGARD 22) 18 (EDGARD 21) Cr H 1.20 (EDGARD 24) H 1.20 (EDGARD 23) H 1.10 (EDGARD 22) H 1.10 (EDGARD 21) Glu R 86 (EDGARD 24) 82 (EDGARD 23) 89 (EDGARD 22) 83 (EDGARD 21) Ca L 8.2 (EDGARD 24) 8.4 (EDGARD 23) 8.4 (EDGARD 22) L 8.2 (EDGARD 21) AST 14 (EDGARD 24) 11 (EDGARD 17) 14 (EDGARD 14) 14 (EDGARD 10) ALT L 7 (EDGARD 24) L 8 (EDGARD 17) L 8 (EDGARD 14) L 7 (EDGARD 10) ALK P 119 (EDGARD 24) 119 (EDGARD 17) 127 (EDGARD 14) 95 (EDGARD 10) T Bili 0.5 (EDGARD 24) 0.6 (EDGARD 17) 0.7 (EDGARD 14) 0.5 (EDGARD 10) PTN L 5.3 (EDGARD 24) L 5.0 (EDGARD 17) L 5.0 (EDGARD 14) L 4.8 (EDGARD 10) ALB L 2.2 (EDGARD 24) L 2.2 (EDGARD 17) L 2.3 (EDGARD 14) L 2.6 (EDGARD 10) Lipase 191 (EDGARD 21) *labs (PowerNote only) [...] 10/05/18. 2 Weekly Groshong catheter dressing changes. 3. Weekly CBC with differential, CMP, ESR, CRP 4. probiotic 5. wound VAC has now been removed and wound is doing very well. I discussed with her today Electronically signed by Aleks, [facility] Conversion Training Engineer Cerner at 07/24/2022 3:43 PM CDT documented in this encounter Plan of Treatment Not on file documented as of this encounter Visit Diagnoses Not on filedocumented in this encounter Care Teams Painter And Decorator Relationship Specialty Start Date End Date Juan José Kendall MD [address] [facility] [address] [place] [phone] PCP - General Family Medicine 12/25/22 Juan José Kendall MD [address] [facility] [address] [place] [phone] Referring Physician Family Medicine 12/25/22 documented as of this encounter
--- OUTSIDE RECORDS SUMMARY | 2024-03-11 09:17 | XMS_ITS | Encounter Summary ---
Author Organization [employer] Address [address] [place] [address] Care Team Providers Care Recruiting Assistant Name Role Phone Juan José Kendall MD Primary Care Provider +- [phone] Juan José Kendall MD Unavailable [phone] Encounter Details Date Type Department Care Team (Late st Contact Info) Description 09/28/2018 Transcribed Document [facility] [place] [facility] [place] [address] ProviderLaurie MD [address] [place] [address] Social History Tobacco Use Types Packs/Day Years Used Date Smoking Tobacco: Never Assessed Comments Unknown Sex and Gender Information Value Date Recorded Sex Assigned at Not on file Legal Sex Female 2:23 PM CDT Gender Identity Not on file Sexual Orientation Not on file documented as of this encounter Miscellaneous Notes * Cerner Conversion Note - Laurie ProviderMD - 09/28/2018 4:25 PM CDT Care Management Assessment/Plan Entered On: 09/28/2018 16:26 EDT Performed On: 09/28/2018 16:25 EDT by PJ NELSON Care Management Note Care Management Note : 09/28/2018 Fax recieved from [facility] with approval for LTACH services . Auth# [id number]. Fax next clinical review to [phone] on 10/05/2018. Care Management Note Report : PJ NELSON - 09/28/18 08:24:24 09/28/2018 [phone][facility] to request coverage for continued LTACH services. Approval pending. Auth# [id number]. PJ NELSON - 09/21/18 15:48:14 09/21/2018 Fax recieved from [facility] with approval for LTACH coverage 09/22/2018-09/28/2018. Auth# [id number]. Fax next clinical review to [phone] on 09/28/2018. PJ NELSON - 09/21/18 08:22:57 09/21/2018 Clinical review faxed to [facility] ([phone]) to request coverage for continued LTACH services. Approval pending. Auth# [id number]. PJ NELSON - 09/15/18 11:34:17 09/15/2018 Fax recieved from [facility] with approval for LTACH services 09/15-09/21/2018. Auth# [id number]. Fax next clinical review to [phone] on 09/21/2018. PJ NELSON - 09/14/18 08:28:49 09/14/2018 Clinical review faxed to [facility] ([phone]) to request coverage for continued LTACH services. Approval pending. Auth# [id number]. Chuyita Briceno, Clinical Assessment Liaison - 09/09/18 [...] unit or SNF. She has previously used [facility] and prefers to use them again if needed. The patient owns a shower chair, BSC and w/c. The patient has never needed a dialysis clinic. The patient has not fallen in the past 3 months. PCP- Dr. Ranjeet [facility]- Orthopedic- [facility]. Shay [facility]- [facility] SNF- [facility] Natalia The patient does wish to return home upon discharge but understands that rehab/SNF may be needed. All papers were explained and signed. No other issues. CM will continue to monitor. Documentation Status Complete : Yes PJ NELSON - 09/28/2018 16:25 EDT Electronically signed by [facility] Conversion Tool Grinder Operator Surface Cerner at 07/24/2022 3:48 PM CDT documented in this encounter Plan of Treatment Not on file documented as of this encounter Visit Diagnoses Not on filedocumented in this encounter Care Teams Recruiting Assistant Relationship Specialty Start Date End Date Juan José Kendall MD [address] [facility] [address] [place] [address] PCP - General Family Medicine 12/25/22 Juan José Kendall MD [address] [facility] [address] [place] [address] Referring Physician Family Medicine 12/25/22 documented as of this encounter
--- OUTSIDE RECORDS SUMMARY | 2024-03-11 09:17 | XMS_ITS | Encounter Summary ---
Author Organization [employer] Address [address] [place] [address] Care Team Providers Care Floor Covering Layer Name Role Phone Juan José Kendall MD Primary Care Provider + [phone] Juan José Kendall MD Unavailable [phone] Encounter Details Date Type Department Care Team (Late st Contact Info) Description 09/26/2018 Transcribed Document [facility] [place] [facility] [place] [address] ProviderLaurie MD [address] [place] [address] Social History Tobacco Use Types Packs/Day Years Used Date Smoking Tobacco: Never Assessed Comments Unknown Sex and Gender Information Value Date Recorded Sex Assigned at Not on file Legal Sex Female 2:23 PM CDT Gender Identity Not on file Sexual Orientation Not on file documented as of this encounter Miscellaneous Notes * Cerner Conversion Note - Historical ProviderMD - 09/26/2018 6:00 PM CDT Patch Check Entered On: 09/26/2018 19:23 EDT Performed On: 09/26/2018 18:00 EDT by Renate Wilson RN Patch Check Patch Check Result : Yes Patch Check - Type of Patch : scopolamine (Transderm-Scop) Renate Wilson RN - 09/26/2018 19:23 EDT documented in this encounter Plan of Treatment Not on file documented as of this encounter Visit Diagnoses Not on filedocumented in this encounter Care Teams Floor Covering Layer Relationship Specialty Start Date End Date Juan José Kendall MD [address] [place] [address] PCP - General Family Medicine 12/25/22 Juan José Kendall MD [address] [place] [address] Referring Physician Family Medicine 12/25/22 documented as of this encounter
--- OUTSIDE RECORDS SUMMARY | 2024-03-11 09:17 | XMS_ITS | Encounter Summary ---
Author Organization [employer] Address [address] [facility] [place] [address] Care Team Providers Care Instructor Correspondence School Name Role Phone Juan José Kendall MD Primary Care Provider +- [phone] Juan José Kendall MD Unavailable [phone] Encounter Details Date Type Department Care Team (Late st Contact Info) Description 09/24/2018 Transcribed Document [facility] [place] Family [place] [facility] [place] [address] ProviderLaurie MD [address] [place] [address] Social History Tobacco Use Types Packs/Day Years Used Date Smoking Tobacco: Never Assessed Comments Unknown Sex and Gender Information Value Date Recorded Sex Assigned at Not on file Legal Sex Female 2:23 PM CDT Gender Identity Not on file Sexual Orientation Not on file documented as of this encounter Miscellaneous Notes * Cerner Conversion Note - Historical ProviderMD - 09/24/2018 9:00 AM CDT Pain Assessment Entered On: 09/24/2018 12:39 EDT Performed On: 09/24/2018 10:13 EDT by ENOCH PERDOMO LPN Intervention Information: acetaminophen Performed by ENOCH PERDOMO LPN on 09/24/2018 09:13:00 EDT acetaminophen,500mg Oral Pain Assessment Pain Assessment : Follow-up assessment Pain Scale Goal : 3 Pain Scale Used : 0-10 Scale Location : Back ENOCH PERDOMO LPN - 09/24/2018 12:39 EDT Pain Scale Intensity : 0 ENOCH PERDOMO LPN - 09/24/2018 12:39 EDT Image 4 - Images currently included in the form version of this document have not been included in the text rendition version of the form. documented in this encounter Plan of Treatment Not on file documented as of this encounter Visit Diagnoses Not on filedocumented in this encounter Care Teams Instructor Correspondence School Relationship Specialty Start [place] [address] [place] [address] [address] [place] [address] PCP - General Family Medicine 12/25/22 Juan José Kendall MD [address] [place] [address] [address] [place] [phone] Referring Physician Family Medicine 12/25/22 documented as of this encounter
--- OUTSIDE RECORDS SUMMARY | 2024-03-11 09:17 | XMS_ITS | Encounter Summary ---
Author Organization [employer] Address [address] [facility] [place] [address] Care Team Providers Care Senior Sql Database Developer Name Role Phone Juan José Kendall MD Primary Care Provider +- [phone] Juan José Kendall MD Unavailable [phone] Encounter Details Date Type Department Care Team (Late st Contact Info) Description 09/27/2018 Transcribed Document [facility] [place] [address] ProviderLaurie MD [address] [place] [address] Social History Tobacco Use Types Packs/Day Years Used Date Smoking Tobacco: Never Assessed Comments Unknown Sex and Gender Information Value Date Recorded Sex Assigned at Not on file Legal Sex Female 2:23 PM CDT Gender Identity Not on file Sexual Orientation Not on file documented as of this encounter Miscellaneous Notes * Cerner Conversion Note - Laurie ProviderMD - 09/27/2018 9:00 AM CDT Pain Assessment Entered On: 09/27/2018 10:58 EDT Performed On: 09/27/2018 10:32 EDT by FRANTZ BROWN, RN Intervention Information: acetaminophen Performed by FRANTZ BROWN, RN on 09/27/2018 09:32:00 EDT acetaminophen,500mg Oral Pain Assessment Pain Assessment : Follow-up assessment Pain Scale Goal : 3 Pain Scale Used : 0-10 Scale Location : Head FRANTZ BROWN RN - 09/27/2018 10:57 EDT Pain Scale Intensity : 0 FRANTZ BROWN RN - 09/27/2018 10:57 EDT Image 4 - Images currently included in the form version of this document have not been included in the text rendition version of the form. documented in this encounter Plan of Treatment Not on file documented as of this encounter Visit Diagnoses Not on filedocumented in this encounter Care Teams Senior Sql Database Developer Relationship Specialty Start Date End Date Juan José Kendall MD [address] [facility] [address] [place] [address] PCP - General Family Medicine 12/25/22 Juan José Kendall MD [address] [facility] [address] [place] [phone] Referring Physician Family Medicine 12/25/22 documented as of this encounter
--- OUTSIDE RECORDS SUMMARY | 2024-03-11 09:17 | XMS_ITS | Encounter Summary ---
Author Organization [employer] Address [address] [place] [address] Care Team Providers Care Senior Branch Manager Name Role Phone Juan José Kendall MD Primary Care Provider + [phone] Juan José Kendall MD Unavailable [phone] Encounter Details Date Type Department Care Team (Late st Contact Info) Description 09/28/2018 Transcribed Document [facility] [place] Family [place] [address] ProviderLaurie MD [address] [place] [address] Social History Tobacco Use Types Packs/Day Years Used Date Smoking Tobacco: Never Assessed Comments Unknown Sex and Gender Information Value Date Recorded Sex Assigned at Not on file Legal Sex Female 2:23 PM CDT Gender Identity Not on file Sexual Orientation Not on file documented as of this encounter Miscellaneous Notes * Cerner Conversion Note - Historical ProviderMD - 09/28/2018 9:00 PM CDT Patch Check Entered On: 09/28/2018 22:40 EDT Performed On: 09/28/2018 21:00 EDT by FRANCISCO MOREJON RN Patch Check Patch Check - Type of Patch : scopolamine (Transderm-Scop) FRANCISCO MOREJON RN - 09/28/2018 22:41 EDT Patch Check Result : Yes FRANCISCO MOREJON RN - 09/28/2018 22:40 EDT Electronically signed by [facility] Conversion Ironer Sock Cerner at 07/24/2022 3:51 PM CDT documented in this encounter Plan of Treatment Not on file documented as of this encounter Visit Diagnoses Not on filedocumented in this encounter Care Teams Senior Branch Manager Relationship Specialty Start Date End Date Juan José Kendall MD [address] [place] [id number] PCP - General Family Medicine 12/25/22 Juan José Kendall MD [address] [place] [phone] Referring Physician Family Medicine 12/25/22 documented as of this encounter
--- OUTSIDE RECORDS SUMMARY | 2024-03-11 09:17 | XMS_ITS | Encounter Summary ---
Author Organization [employer] Address [address] [place] [address] Care Team Providers Care Mmi Teacher Name Role Phone Juan José Kendall MD Primary Care Provider +- [phone] Juan José Kendall MD Unavailable [phone] Encounter Details Date Type Department Care Team (Late st Contact Info) Description 09/26/2018 Transcribed Document [facility] [place] [address] ProviderLaurie MD [address] [place] [address] Social History Tobacco Use Types Packs/Day Years Used Date Smoking Tobacco: Never Assessed Comments Unknown Sex and Gender Information Value Date Recorded Sex Assigned at Not on file Legal Sex Female 2:23 PM CDT Gender Identity Not on file Sexual Orientation Not on file documented as of this encounter Miscellaneous Notes * Cerner Conversion Note - Historical ProviderMD - 09/26/2018 2:00 AM CDT Bank Runner Details Entered On: 09/26/2018 4:02 EDT Performed On: 09/26/2018 2:00 EDT by Angy Esqueda Rn Order Details Transport Mode Order Detail : Bed (including specialty) Isolation Precautions Order Detail : Standard Precautions Order Detail : 0 IV Order Detail : 1 Oxygen Order Detail : 0 Nurse Collect Order Detail : 1 Lift/Transfer : Maximal assist Central Line Order Detail : Yes Room Service : Appropriate Arterial Line : No Angy Esqueda Rn - 09/26/2018 4:01 EDT Electronically signed by [facility] Conversion Freight Receiver Cerner at 07/24/2022 3:51 PM CDT documented in this encounter Plan of Treatment Not on file documented as of this encounter Visit Diagnoses Not on filedocumented in this encounter Care Teams Mmi Teacher Relationship Specialty Start Date End Date Juan José Kendall MD [address] [facility] [address] [place] [id number] PCP - General Family Medicine 12/25/22 Juan José Kendall MD [address] [facility] [address] [place] [phone] Referring Physician Family Medicine 12/25/22 documented as of this encounter
--- OUTSIDE RECORDS SUMMARY | 2024-03-11 09:17 | XMS_ITS | Encounter Summary ---
Author Organization [employer] Address [address] [place] [address] Care Team Providers Care Technical Assistant Name Role Phone Juan José Kendall MD Primary Care Provider + [phone] Juan José Kendall MD Unavailable [phone] Encounter Details Date Type Department Care Team (Late st Contact Info) Description 09/28/2018 Transcribed Document [facility] [place] [facility] [place] [address] ProviderLaurie MD [address] [place] [id number] Social History Tobacco Use Types Packs/Day Years Used Date Smoking Tobacco: Never Assessed Comments Unknown Sex and Gender Information Value Date Recorded Sex Assigned at Not on file Legal Sex Female 2:23 PM CDT Gender Identity Not on file Sexual Orientation Not on file documented as of this encounter Miscellaneous Notes * Cerner Conversion Note - Historical ProviderMD - 09/28/2018 3:53 PM CDT Interdisciplinary Rounds Entered On: 09/28/2018 15:53 EDT Performed On: 09/28/2018 15:53 EDT by BRY BAILEY OTR/Ivan Interdisciplinary Rounds Interdisciplinary Rounds Participants : Occupational Therapist Rounds Participants Comment : Pt very pleasant and motivated. Pt states she was using a sliding board at home. Pt with good core strength. Pt particpating well. Patient's Priority Needs : REhab. BRY BAILEY OTR/Ivan - 09/28/2018 15:53 EDT documented in this encounter Plan of Treatment Not on file documented as of this encounter Visit Diagnoses Not on filedocumented in this encounter Care Teams Technical Assistant Relationship Specialty Start Date End Date [...]
--- OUTSIDE RECORDS SUMMARY | 2024-03-11 09:17 | XMS_ITS | Encounter Summary ---
Author Organization [employer] Address [address] [place] [address] Care Team Providers Care Administrative Program Specialist Name Role Phone Juan José Kendall MD Primary Care Provider +- [phone] Juan José Kendall MD Unavailable [phone] Encounter Details Date Type Department Care Team (Late st Contact Info) Description 09/25/2018 Transcribed Document [facility] [place] Family Medicine [facility] [place] [address] ProviderLaurie MD [address] [place] [id number] Social History Tobacco Use Types Packs/Day Years Used Date Smoking Tobacco: Never Assessed Comments Unknown Sex and Gender Information Value Date Recorded Sex Assigned at Not on file Legal Sex Female 2:23 PM CDT Gender Identity Not on file Sexual Orientation Not on file documented as of this encounter Miscellaneous Notes * Cerner Conversion Note - Laurie ProviderMD - 09/25/2018 9:00 PM CDT Pain Assessment Entered On: 09/26/2018 4:01 EDT Performed On: 09/25/2018 21:48 EDT by Angy Esqueda Rn Intervention Information: acetaminophen Performed by Angy Esqueda Rn on 09/25/2018 20:48:00 EDT acetaminophen,500mg Oral Pain Assessment Pain Assessment : Follow-up assessment Pain Scale Goal : 3 Pain Scale Used : 0-10 Scale Pain Intervention, Drug : Medicated Pain Improved by Intervention : Yes Angy Esqueda Rn - 09/26/2018 4:00 EDT Pain Scale Intensity : 4 Angy Esqueda Rn - 09/26/2018 4:00 EDT Image 4 - Images currently included in the form version of this document have not been included in the text rendition version of the form. documented in this encounter Plan of Treatment Not on file documented as of this encounter Visit Diagnoses Not on filedocumented in this encounter Care Teams Administrative Program Specialist Relationship Specialty Start Date End Date Juan José Kendall MD [address] [place] [address] [address] [place] [phone] PCP - General Family Medicine 12/25/22 Juan José Kendall MD [address] [place] [address] [address] [place] [phone] Referring Physician Family Medicine 12/25/22 documented as of this encounter
--- OUTSIDE RECORDS SUMMARY | 2024-03-11 09:17 | XMS_ITS | Encounter Summary ---
Author Organization [employer] Address [address] [place] [address] Care Team Providers Care Security Escort Name Role Phone Juan José Kendall MD Primary Care Provider + [phone] Juan José Kendall MD Unavailable [phone] Encounter Details Date Type Department Care Team (Late st Contact Info) Description 09/27/2018 Transcribed Document [facility] [place] [address] [place] [address] ProviderLaurie MD [address] [place] [address] Social History Tobacco Use Types Packs/Day Years Used Date Smoking Tobacco: Never Assessed Comments Unknown Sex and Gender Information Value Date Recorded Sex Assigned at Not on file Legal Sex Female 2:23 PM CDT Gender Identity Not on file Sexual Orientation Not on file documented as of this encounter Miscellaneous Notes * Cerner Conversion Note - Historical ProviderMD - 09/27/2018 5:00 PM CDT Chart Check - Review Order Profile Entered On: 09/27/2018 17:05 EDT Performed On: 09/27/2018 17:00 EDT by FRANTZ BROWN RN Chart Check Powerplans Initiated/Discontinued as Appropriate : Yes All Active Orders Reviewed : Yes FRANTZ BROWN RN - 09/27/2018 17:05 EDT documented in this encounter Plan of Treatment Not on file documented as of this encounter Visit Diagnoses Not on filedocumented in this encounter Care Teams Security Escort Relationship Specialty Start Date End Date Juan José Kendall MD [address] [place] [address] PCP - General Family Medicine 12/25/22 Juan José Kendall MD [address] [place] [phone] Referring Physician Family Medicine 12/25/22 documented as of this encounter
--- OUTSIDE RECORDS SUMMARY | 2024-03-11 09:17 | XMS_ITS | Encounter Summary ---
Author Organization [employer] Address [address] [place] [address] Care Team Providers Care Onboarding Specialist Name Role Phone Juan José Kendall MD Primary Care Provider + [phone] Juan José Kendall MD Unavailable [phone] Encounter Details Date Type Department Care Team (Late st Contact Info) Description 09/25/2018 Transcribed Document [facility] Family Medicine [facility] [place] [address] ProviderLaurie MD [address] [place] [address] Social History Tobacco Use Types Packs/Day Years Used Date Smoking Tobacco: Never Assessed Comments Unknown Sex and Gender Information Value Date Recorded Sex Assigned at Not on file Legal Sex Female 2:23 PM CDT Gender Identity Not on file Sexual Orientation Not on file documented as of this encounter Miscellaneous Notes * Cerner Conversion Note - Laurie Garcia MD - 09/25/2018 6:14 PM CDT Patient: TRUDI BLAIR Age: 63 [...] , pain under control, no trouble w. urination ???Diarrhea resolved ???Nausea resolved. Review of Systems Constitutional: No fever, No [...] inj 4 mg 2 mL, IV Push, [id number] pantoprazole EC 40 mg tab 40 mg [...] Stress incontinence Physical Examination VS/Measurements Vital Measurements 09/25/2018 15:47 EDT Systolic Blood Pressure 146 mmHg HI Diastolic Blood Pressure 71 mmHg Mean Arterial Pressure (MAP)-BMDI 91 Temperature Source Oral Temperature Mode Fahrenheit Temperature, Fahrenheit 98.2 Deg F Clinical Temperature, C 36.8 Deg C Heart Rate Monitored 68 bpm Respiratory Rate 16 Breaths/Min Oxygen Saturation [...] Review / Management Results review: All Results 09/25/2018 6:30 EDT Sodium Level 145 mmol/L Potassium Level 3.6 mmol/L Chloride Level 115 mmol/L HI Carbon Dioxide Level 24 mmol/L Anion Gap 10 Glucose Level 82 mg/dL Blood Urea Nitrogen 15 mg/dL Creatinine Level 1.20 mg/dL HI eGFR 55 mL/min/1.73m2 LOW eGFR NonAfrican 45 mL/min/1.73m2 LOW Bun/Creatinine 12.5 Calcium Level 8.4 mg/dL 09/24/2018 6:35 EDT Sodium Level 144 mmol/L Potassium Level 3.4 mmol/L LOW Chloride Level 115 mmol/L HI Carbon Dioxide Level 23 mmol/L Anion Gap 9 Glucose Level 89 mg/dL Blood Urea Nitrogen 18 mg/dL Creatinine Level 1.10 mg/dL HI eGFR >60 mL/min/1.73m2 eGFR NonAfrican 50 mL/min/1.73m2 LOW Bun/Creatinine 16.4 Calcium Level 8.4 mg/dL Platelet Count 185 K/uL Vancomycin Random 14.3 mcg/mL NA . Condition: Stable. Impression and [...] on wound care -Pain control -DVT prophylaxis Close monitoring fluid and electrolytes -When necessary nebs -Fall risk precautions -Sleep apnea precautions -Stress ulcer prophylaxis. documented in this encounter Plan of Treatment Not on file documented as of this encounter Visit Diagnoses Not on filedocumented in this encounter Care Teams Onboarding Specialist Relationship Specialty Start Date End Date Juan José Kendall MD [address] [facility] [address] [place] [phone] PCP - General Family Medicine 12/25/22 Juan José Kendall MD [address] [facility] [address] [place] [address] Referring Physician Family Medicine 12/25/22 documented as of this encounter
--- OUTSIDE RECORDS SUMMARY | 2024-03-11 09:17 | XMS_ITS | Encounter Summary ---
Author Organization [employer] Address [address] [facility] [place] [address] Care Team Providers Care Medical Laboratory Assistant Name Role Phone Juan José Kendall MD Primary Care Provider +- [phone] Juan José Kendall MD Unavailable +[phone] Encounter Details Date Type Department Care Team (Late st Contact Info) Description 09/29/2018 Transcribed Document [facility] [place] [facility] [place] [address] ProviderLaurie MD [address] [place] [address] Social History Tobacco Use Types Packs/Day Years Used Date Smoking Tobacco: Never Assessed Comments Unknown Sex and Gender Information Value Date Recorded Sex Assigned at Not on file Legal Sex Female 2:23 PM CDT Gender Identity Not on file Sexual Orientation Not on file documented as of this encounter Miscellaneous Notes * Cerner Conversion Note - Laurie ProviderMD - 09/29/2018 3:00 AM CDT Pain Assessment Entered On: 09/29/2018 6:04 EDT Performed On: 09/29/2018 5:32 EDT by FRANCISCO MOREJON RN Intervention Information: acetaminophen Performed by FRANCISCO MOREJON RN on 09/29/2018 04:32:00 EDT acetaminophen,500mg Oral Pain Assessment Pain Assessment : Follow-up assessment Pain Scale Goal : 3 Pain Scale Used : 0-10 Scale FRANCISCO MOREJON RN - 09/29/2018 6:03 EDT Pain Scale Intensity : 0 FRANCISCO MOREJON RN - 09/29/2018 6:03 EDT Image 4 - Images currently included in the form version of this document have not been included in the text rendition version of the form. documented in this encounter Plan of Treatment Not on file documented as of this encounter Visit Diagnoses Not on filedocumented in this encounter Care Teams Medical Laboratory Assistant Relationship Specialty Start Date End Date Juan José Kendall MD [address] [facility] [address] [place] [address] PCP - General Family Medicine 12/25/22 Juan José Kendall MD [address] [facility] [address] [place] [address] Referring Physician Family Medicine 12/25/22 documented as of this encounter
--- OUTSIDE RECORDS SUMMARY | 2024-03-11 09:17 | XMS_ITS | Encounter Summary ---
Author Organization [employer] Address [address] [facility] [address] Care Team Providers Care Gate Services Supervisor Name Role Phone Juan José Kendall MD Primary Care Provider + [phone] Juan José Kendall MD Unavailable [phone] Encounter Details Date Type Department Care Team (Late st Contact Info) Description 09/29/2018 Transcribed Document [facility] [facility] [place] [address] ProviderLaurie MD [address] [place] [address] Social History Tobacco Use Types Packs/Day Years Used Date Smoking Tobacco: Never Assessed Comments Unknown Sex and Gender Information Value Date Recorded Sex Assigned at Not on file Legal Sex Female 2:23 PM CDT Gender Identity Not on file Sexual Orientation Not on file documented as of this encounter Miscellaneous Notes * Cerner Conversion Note - Historical ProviderMD - 09/29/2018 4:36 PM CDT Care Management Assessment/Plan Entered On: 09/29/2018 16:38 EDT Performed On: 09/29/2018 16:36 EDT by PJ NELSON Care Management Note Care Management Note : 09/29/2018 Per ID, abx therapy to stop 10/05/2018. Patient states she is open to rehab, but prefers it be close to her home in [place]. Referrals faxed to Debbie Patricia (Signature liaison), [place], [place], and [place]. Awaiting a call back. Care Management Note Report : PJ NELSON - 09/28/18 16:26:43 09/28/2018 Fax recieved from [facility] with approval for LTACH services 09/29-10/04. Auth# [id number]. Fax next clinical review to [phone] on 10/05/2018. LESLIEPJ - 09/28/18 08:24:24 09/28/2018 Clinical review faxed to [facility] ([phone]) to request coverage for continued LTACH services. Approval pending. Auth# [id number]. NELSONPJ BELLO - 09/21/18 15:48:14 09/21/2018 Fax recieved from [facility] with approval for LTACH coverage 09/22/2018-09/28/2018. Auth# [id number]. Fax next clinical review to [phone] on 09/28/2018. PJ NELSON - 09/21/18 08:22:57 09/21/2018 Clinical review faxed to [facility] ([phone]) to request coverage for continued LTACH services. Approval pending. Auth# [id number]. PJ NELSON - 09/15/18 11:34:17 09/15/2018 Fax recieved from [facility] with approval for LTACH services 09/15-09/21/2018. Auth# [id number]. Fax next clinical review to [phone] on 09/21/2018. PJ NELSON - 09/14/18 08:28:49 09/14/2018 Clinical review faxed to [facility] ([phone]) to request coverage for continued LTACH services. Approval pending. Auth# [id number]. Chuyita Briceno, Clinical Assessment Liaison - 09/09/18 [...] [facility]- Orthopedic- Dr. Shay Guerrero [facility]- - [facility]- [facility]- [facility] Natalia The patient does wish to return home upon discharge but understands that rehab/SNF may be needed. All papers were explained and signed. No other issues. CM will continue to monitor. Documentation Status Complete : Yes NELSONRASHEEDRALPH - 09/29/2018 16:36 EDT Electronically signed by Aleks [facility] Conversion Binder Roller Cerner at 07/24/2022 3:59 PM CDT documented in this encounter Plan of Treatment Not on file documented as of this encounter Visit Diagnoses Not on filedocumented in this encounter Care Teams Gate Services Supervisor Relationship Specialty Start Date End Date Juan José Kendall MD [address] [facility] [address] [place] [address] PCP - General Family Medicine 12/25/22 Juan José Kendall MD [address] [facility] [address] [place] [address] Referring Physician Family Medicine 12/25/22 documented as of this encounter
--- OUTSIDE RECORDS SUMMARY | 2024-03-11 09:17 | XMS_ITS | Encounter Summary ---
Author Organization [employer] Address [address] [place] [address] Care Team Providers Care Palliative Care Physician Name Role Phone Juan José Kendall MD Primary Care Provider + [phone] Juan José Kendall MD Unavailable [phone] Encounter Details Date Type Department Care Team (Late st Contact Info) Description 09/29/2018 Transcribed Document [facility] [place] [address] ProviderLaurie MD [address] [place] [address] Social History Tobacco Use Types Packs/Day Years Used Date Smoking Tobacco: Never Assessed Comments Unknown Sex and Gender Information Value Date Recorded Sex Assigned at Not on file Legal Sex Female 2:23 PM CDT Gender Identity Not on file Sexual Orientation Not on file documented as of this encounter Miscellaneous Notes * Cerner Conversion Note - Historical ProviderMD - 09/29/2018 9:00 PM CDT Patch Check Entered On: 09/29/2018 21:48 EDT Performed On: 09/29/2018 21:00 EDT by FRANCISCO MOREJON RN Patch Check Patch Check Result : Yes Patch Check - Type of Patch : scopolamine (Transderm-Scop) FRANCISCO MOREJON RN - 09/29/2018 21:48 EDT documented in this encounter Plan of Treatment Not on file documented as of this encounter Visit Diagnoses Not on filedocumented in this encounter Care Teams Palliative Care Physician Relationship Specialty Start Date End Date Juan José Kendall MD [address] [place] [address] PCP - General Family Medicine 12/25/22 Juan José Kendall MD [address] [place] [address] Referring Physician Family Medicine 12/25/22 documented as of this encounter
--- OUTSIDE RECORDS SUMMARY | 2024-03-11 09:17 | XMS_ITS | Encounter Summary ---
Author Organization [employer] Address [address] [place] [address] Care Team Providers Care Dish Room Worker Name Role Phone Juan José Kendall MD Primary Care Provider + [phone] Juan José Kendall MD Unavailable +[phone] Encounter Details Date Type Department Care Team (Late st Contact Info) Description 09/25/2018 Transcribed Document [facility] [place] Family Medicine [address] [place] [address] ProviderLaurie MD [address] [place] [address] Social History Tobacco Use Types Packs/Day Years Used Date Smoking Tobacco: Never Assessed Comments Unknown Sex and Gender Information Value Date Recorded Sex Assigned at Not on file Legal Sex Female 2:23 PM CDT Gender Identity Not on file Sexual Orientation Not on file documented as of this encounter Miscellaneous Notes * Cerner Conversion Note - Historical ProviderMD - 09/25/2018 5:00 PM CDT Chart Check - Review Order Profile Entered On: 09/25/2018 16:10 EDT Performed On: 09/25/2018 17:00 EDT by Renate Wilson RN Chart Check Powerplans Initiated/Discontinued as Appropriate : Yes All Active Orders Reviewed : Yes Renate Wilson RN - 09/25/2018 16:10 EDT documented in this encounter Plan of Treatment Not on file documented as of this encounter Visit Diagnoses Not on filedocumented in this encounter Care Teams Dish Room Worker Relationship Specialty Start Date End Date Juan José Kendall MD [address] [place] [address] PCP - General Family Medicine 12/25/22 Juan José Kendall MD [address] [place] [address] Referring Physician Family Medicine 12/25/22 documented as of this encounter
--- OUTSIDE RECORDS SUMMARY | 2024-03-11 09:17 | XMS_ITS | Encounter Summary ---
Author Organization [employer] Address [address] [place] [address] Care Team Providers Care Clinical Trial Head Name Role Phone Juan José Kendall MD Primary Care Provider + [phone] Juan José Kendall MD Unavailable [phone] Encounter Details Date Type Department Care Team (Late st Contact Info) Description 09/28/2018 Transcribed Document [facility] [place] Family Medicine [facility] [place] [address] ProviderLaurie MD [address] [place] [address] Social History Tobacco Use Types Packs/Day Years Used Date Smoking Tobacco: Never Assessed Comments Unknown Sex and Gender Information Value Date Recorded Sex Assigned at Not on file Legal Sex Female 2:23 PM CDT Gender Identity Not on file Sexual Orientation Not on file documented as of this encounter Miscellaneous Notes * Cerner Conversion Note - Laurie Garcia MD - 09/28/2018 12:23 PM CDT Patient: TRUDI BLAIR Age: 63 [...] pain under control, no trouble w. urination. ???Sat at the side of the bed today Review of Systems Constitutional: No fever, [...] inj 4 mg 2 mL, IV Push, [id number] pantoprazole EC 40 mg tab 40 mg [...] Stress incontinence Physical Examination VS/Measurements Vital Measurements 09/28/2018 7:00 EDT Systolic Blood Pressure 167 mmHg HI Diastolic Blood Pressure 68 mmHg Temperature Source Oral Temperature Mode Fahrenheit Temperature, Fahrenheit 98.4 Deg F Clinical Temperature, C 36.9 Deg C Heart Rate Monitored 84 bpm Respiratory Rate 16 Breaths/Min Oxygen Saturation [...] Review / Management Results review: All Results 09/28/2018 5:41 EDT Sodium Level 143 mmol/L Potassium Level 3.4 mmol/L LOW Chloride Level 113 mmol/L HI Carbon Dioxide Level 25 mmol/L Anion Gap 8 LOW Glucose Level 90 mg/dL Blood Urea Nitrogen 15 mg/dL Creatinine Level 1.20 mg/dL HI eGFR 55 mL/min/1.73m2 LOW eGFR NonAfrican 45 mL/min/1.73m2 LOW Bun/Creatinine 12.5 Calcium Level 8.4 mg/dL Platelet Count 180 K/uL 09/27/2018 5:19 EDT Sodium Level 144 mmol/L Potassium Level 3.5 mmol/L Chloride Level 114 mmol/L HI Carbon Dioxide Level 24 mmol/L Anion Gap 10 Glucose Level 88 mg/dL Blood Urea Nitrogen 16 mg/dL Creatinine Level 1.20 mg/dL HI eGFR 55 mL/min/1.73m2 LOW eGFR NonAfrican 45 mL/min/1.73m2 LOW Bun/Creatinine 13.3 Calcium Level 8.5 mg/dL . Condition: Stable. Impression and Plan [...] Diff: Specimen Type: Blood, AM Draw collect, 09/29/18 4:00:00 EDT, 1-Time, Stop: 09/29/18 4:00:00 EDT, Nurse Collect CMP Comprehensive Metabolic Panel: Specimen Type: Blood, AM Draw collect, 09/29/18 4:00:00 EDT, 1-Time, Stop: 09/29/18 4:00:00 EDT, Nurse Collect. Electronically signed by Aleks [facility] Conversion Geophysical Laboratory Chief Cerner at 07/24/2022 3:38 PM CDT documented in this encounter Plan of Treatment Not on file documented as of this encounter Visit Diagnoses Not on filedocumented in this encounter Care Teams Clinical Trial Head Relationship Specialty Start Date End Date Juan José Kendall MD [address] [facility] [address] [place] [id number] PCP - General Family Medicine 12/25/22 Juan José Kendall MD [address] [facility] [address] [place] [address] Referring Physician Family Medicine 12/25/22 documented as of this encounter
--- OUTSIDE RECORDS SUMMARY | 2024-03-11 09:17 | XMS_ITS | Encounter Summary ---
Author Organization [employer] Address [address] [place] [address] Care Team Providers Care Plant Machinist Name Role Phone Juan José Kendall MD Primary Care Provider + [phone] Juan José Kendall MD Unavailable [phone] Encounter Details Date Type Department Care Team (Late st Contact Info) Description 09/26/2018 Transcribed Document [facility] [place] [address] [place] [address] ProviderLaurie MD [address] [place] [address] Social History Tobacco Use Types Packs/Day Years Used Date Smoking Tobacco: Never Assessed Comments Unknown Sex and Gender Information Value Date Recorded Sex Assigned at Not on file Legal Sex Female 2:23 PM CDT Gender Identity Not on file Sexual Orientation Not on file documented as of this encounter Miscellaneous Notes * Cerner Conversion Note - Laurie ProviderMD - 09/26/2018 5:00 AM CDT Chart Check - Review Order Profile Entered On: 09/26/2018 4:02 EDT Performed On: 09/26/2018 5:00 EDT by Angy Esqueda Rn Chart Check Powerplans Initiated/Discontinued as Appropriate : Yes All Active Orders Reviewed : Yes Angy Esqueda Rn - 09/26/2018 4:02 EDT documented in this encounter Plan of Treatment Not on file documented as of this encounter Visit Diagnoses Not on filedocumented in this encounter Care Teams Plant Machinist Relationship Specialty Start Date End Date Juan José Kendall MD [address] [place] [address] PCP - General Family Medicine 12/25/22 Juan José Kendall MD [address] [place] [address] Referring Physician Family Medicine 12/25/22 documented as of this encounter
--- OUTSIDE RECORDS SUMMARY | 2024-03-11 09:17 | XMS_ITS | Encounter Summary ---
Author Organization [employer] Address [address] [facility] [facility] [place] [address] Care Team Providers Care Food Service Technician Name Role Phone Juan José Kendall MD Primary Care Provider +- [phone] Juan José Kendall MD Unavailable [phone] Encounter Details Date Type Department Care Team (Late st Contact Info) Description 09/25/2018 Transcribed Document [facility] [place] [facility] [place] [address] ProviderLaurie MD [address] [place] [address] Social History Tobacco Use Types Packs/Day Years Used Date Smoking Tobacco: Never Assessed Comments Unknown Sex and Gender Information Value Date Recorded Sex Assigned at Not on file Legal Sex Female 2:23 PM CDT Gender Identity Not on file Sexual Orientation Not on file documented as of this encounter Miscellaneous Notes * Cerner Conversion Note - Historical ProviderMD - 09/25/2018 3:00 PM CDT Pain Assessment Entered On: 09/25/2018 16:10 EDT Performed On: 09/25/2018 15:05 EDT by Renate Wilson RN Intervention Information: acetaminophen Performed by Renate Wilson RN on 09/25/2018 14:05:00 EDT acetaminophen,500mg Oral Pain Assessment Pain Assessment : Follow-up assessment Pain Scale Goal : 3 Pain Scale Used : 0-10 Scale Renate Wilson RN - 09/25/2018 16:09 EDT Pain Scale Intensity : 1 Renate Wilson RN - 09/25/2018 16:09 EDT Image 4 - Images currently included in the form version of this document have not been included in the text rendition version of the form. documented in this encounter Plan of Treatment Not on file documented as of this encounter Visit Diagnoses Not on filedocumented in this encounter Care Teams Food Service Technician Relationship Specialty Start Date End Date Juan José Kendall MD [address] [facility] [address] [place] [address] PCP - General Family Medicine 12/25/22 Juan José Kendall MD [address] [place] [address] [address] [place] [address] Referring Physician Family Medicine 12/25/22 documented as of this encounter
--- OUTSIDE RECORDS SUMMARY | 2024-03-11 09:17 | XMS_ITS | Encounter Summary ---
Author Organization [employer] Address [address] [facility] [place] [address] Care Team Providers Care Arabic Teacher Name Role Phone Juan José Kendall MD Primary Care Provider +- [phone] Juan José Kendall MD Unavailable [phone] Encounter Details Date Type Department Care Team (Late st Contact Info) Description 09/29/2018 Transcribed Document [facility] [place] [facility] [place] [address] ProviderLaurie MD [address] [place] [address] Social History Tobacco Use Types Packs/Day Years Used Date Smoking Tobacco: Never Assessed Comments Unknown Sex and Gender Information Value Date Recorded Sex Assigned at Not on file Legal Sex Female 2:23 PM CDT Gender Identity Not on file Sexual Orientation Not on file documented as of this encounter Miscellaneous Notes * Cerner Conversion Note - Historical ProviderMD - 09/29/2018 3:00 PM CDT Pain Assessment Entered On: 09/29/2018 16:33 EDT Performed On: 09/29/2018 16:32 EDT by Nanda Don, COMMERCIAL DRAFTER-STUDENT NURSE Intervention Information: acetaminophen(Pending Validation) Performed by Nanda Don COMMERCIAL DRAFTER-STUDENT NURSE on 09/29/2018 15:32:00 EDT acetaminophen,500mg Oral Pain Assessment Pain Assessment : Follow-up assessment Pain Scale Goal : 3 Nanda Don COMMERCIAL DRAFTER-STUDENT NURSE - 09/29/2018 16:33 EDT documented in this encounter Plan of Treatment Not on file documented as of this encounter Visit Diagnoses Not on filedocumented in this encounter Care Teams Arabic Teacher Relationship Specialty Start Date End Date Juan José Kendall MD [address] [facility] [address] [place] [phone] PCP - General Family Medicine 12/25/22 Juan José Kendall MD [facility] [address] [place] [address] Referring Physician Family Medicine 12/25/22 documented as of this encounter
--- OUTSIDE RECORDS SUMMARY | 2024-03-11 09:17 | XMS_ITS | Encounter Summary ---
Author Organization [employer] Address [address] [place] [place] [address] Care Team Providers Care Back Sewer Name Role Phone Juan José Kendall MD Primary Care Provider +- [phone] Juan José Kendall MD Unavailable [phone] Encounter Details Date Type Department Care Team (Late st Contact Info) Description 09/28/2018 Transcribed Document [facility] [place] [address] ProviderLaurie MD [address] [place] [address] Social History Tobacco Use Types Packs/Day Years Used Date Smoking Tobacco: Never Assessed Comments Unknown Sex and Gender Information Value Date Recorded Sex Assigned at Not on file Legal Sex Female 2:23 PM CDT Gender Identity Not on file Sexual Orientation Not on file documented as of this encounter Miscellaneous Notes * Cerner Conversion Note - Laurie ProviderMD - 09/28/2018 8:24 AM CDT Care Management Assessment/Plan Entered On: 09/28/2018 8:24 EDT Performed On: 09/28/2018 8:24 EDT by PJ NELSON Care Management Note Care Management Note : 09/28/2018 Clinical review faxed to [facility] ([phone]) to request coverage for continued LTACH services. Approval pending. Auth# [id number]. Care Management Note Report : PJ NELSON - 09/21/18 15:48:14 09/21/2018 Fax recieved from [facility] with approval for LTACH coverage 09/22/2018-09/28/2018. Auth# [id number]. Fax next clinical review to [phone] on 09/28/2018. PJ NELSON - 09/21/18 08:22:57 09/21/2018 Clinical review faxed to [facility] ([phone]) to request coverage for continued LTACH services. Approval pending. Auth# [id number]. PJ NELSON - 09/15/18 11:34:17 09/15/2018 Fax recieved from [facility] with approval for LTACH services 09/15-09/21/2018. Auth# [id number]. Fax next clinical review to [phone] on 09/21/2018. PJ NELSON - 09/14/18 08:28:49 09/14/2018 Clinical review faxed to [facility] ([phone]) to request coverage for continued LTACH services. Approval pending. Auth# [id number]. Chuyita Briceno, Clinical Assessment Liaison - 09/09/18 [...] unit or SNF. She has previously used [facility] and prefers to use them again if needed. The patient owns a shower chair, BSC and w/c. The patient has never needed a dialysis clinic. The patient has not fallen in the past 3 months. PCP- Dr. [facility]- Orthopedic- Dr. Shay Guerrero [facility]- - [facility] SNF- [facility] Natalia The patient does wish to return home upon discharge but understands that rehab/SNF may be needed. All papers were explained and signed. No other issues. CM will continue to monitor. Documentation Status Complete : Yes RASHEED NELSONKATHIEris - 09/28/2018 8:24 EDT documented in this encounter Plan of Treatment Not on file documented as of this encounter Visit Diagnoses Not on filedocumented in this encounter Care Teams Back Sewer Relationship Specialty Start Date End Date Juan José Kendall MD [facility] [facility] [address] [place] [address] PCP - General Family Medicine 12/25/22 Juan José Kendall MD 1210 [facility] [address] [place] [address] Referring Physician Family Medicine 12/25/22 documented as of this encounter
--- OUTSIDE RECORDS SUMMARY | 2024-03-11 09:17 | XMS_ITS | Encounter Summary ---
Author Organization [employer] Address [address] [place] [address] Care Team Providers Care Consumer Services Consultant Name Role Phone Juan José Kendall MD Primary Care Provider +- [phone] Juan José Kendall MD Unavailable [phone] Encounter Details Date Type Department Care Team (Late st Contact Info) Description 09/28/2018 Transcribed Document [facility] [place] [facility] [place] [address] ProviderLaurie MD [address] [place] [address] Social History Tobacco Use Types Packs/Day Years Used Date Smoking Tobacco: Never Assessed Comments Unknown Sex and Gender Information Value Date Recorded Sex Assigned at Not on file Legal Sex Female 2:23 PM CDT Gender Identity Not on file Sexual Orientation Not on file documented as of this encounter Miscellaneous Notes * Cerner Conversion Note - Historical ProviderMD - 09/28/2018 12:22 PM CDT Patient: TRUDI BLAIR Age: 63 [...] repair. She was more recently admitted to [facility] x2 earlier this month on [...] getting wound care. She was transferred to [facility] today for a higher level of care. [...] denies any diarrhea. no left leg pain. ROS: As above Past Medical History: Arthritis Back pain GERD HLD NUVIA HTN Stress incontinence Past Surgical History: Left TKA, 2017 left patellar tendon repair, 06/2018 lumbar fusion hysterectomy right TKA right patellar tendon repair Family History: CAD HTN Cancer Social History: . lives in [place]. No tobacco, ETOH, or illicit drug use. [...] (SEP 28 07:00) 98 (SEP 27 19:00) PE: General: patient is alert and [...] Labs (Last four charted values) WBC 5.8 (SEP 24) 5.7 (EDGARD 17) 7.0 (EDGARD 14) 7.2 (EDGARD 10) HB L 8.3 (EDGARD 24) L 8.2 (EDGARD 17) L 8.6 (EDGARD 14) L 8.2 (EDGARD 10) HCT L 26.3 (EDGARD 24) L 26.3 (EDGARD 17) L 27.2 (EDGARD 14) L 26.4 (EDGARD 10) Plt 180 (EDGARD 26) 186 (EDGARD 24) 185 (EDGARD 22) 182 (EDGARD 20) Na 143 (EDGARD 26) 144 (EDGARD 25) 145 (EDGARD 24) 145 (EDGARD 23) K L 3.4 (EDGARD 26) 3.5 (EDGARD 25) 3.5 (EDGARD 24) 3.6 (EDGARD 23) Cl H 113 (EDGARD 26) H 114 (EDGARD 25) H 115 (EDGARD 24) H 115 (EDGARD 23) CO2 25 (EDGARD 26) 24 (EDGARD 25) 24 (EDGARD 24) 24 (EDGARD 23) BUN 15 (EDGARD 26) 16 (EDGARD 25) 13 (EDGARD 24) 15 (EDGARD 23) Cr H 1.20 (EDGARD 26) H 1.20 (EDGARD 25) H 1.20 (EDGARD 24) H 1.20 (EDGARD 23) Glu R 90 (EDGARD 26) 88 (EDGARD 25) 86 (EDGARD 24) 82 (EDGARD 23) Ca 8.4 (EDGARD 26) 8.5 (EDGARD 25) L 8.2 (EDGARD 24) 8.4 (EDGARD 23) AST 14 (EDGARD 24) 11 (EDGARD 17) [...] Results Found Assessment: -MRSA septicemia- grew from / blood cultures and was likely associate with [...] 4. probiotic I discussed with her today doing well and only one more week of IV antibiotic therapy. Electronically signed by Aleks, [facility] Conversion Od Grinder Operator Cerner at 07/24/2022 3:36 PM CDT documented in this encounter Plan of Treatment Not on file documented as of this encounter Visit Diagnoses Not on filedocumented in this encounter Care Teams Consumer Services Consultant Relationship Specialty Start Date End Date Juan José Kendall MD [address] [facility] [address] [place] [address] PCP - General Family Medicine 12/25/22 Juan José Kendall MD [address] [facility] [address] [place] [id number] Referring Physician Family Medicine 12/25/22 documented as of this encounter
--- OUTSIDE RECORDS SUMMARY | 2024-03-11 09:17 | XMS_ITS | Encounter Summary ---
Author Organization [employer] Address [address] [place] [address] Care Team Providers Care Filter Press Pumper Name Role Phone Juan José Kendall MD Primary Care Provider +- [phone] Juan José Kendall MD Unavailable [phone] Encounter Details Date Type Department Care Team (Late st Contact Info) Description 09/26/2018 Transcribed Document [facility] [place] [address] ProviderLaurie MD [address] [place] [address] Social History Tobacco Use Types Packs/Day Years Used Date Smoking Tobacco: Never Assessed Comments Unknown Sex and Gender Information Value Date Recorded Sex Assigned at Not on file Legal Sex Female 2:23 PM CDT Gender Identity Not on file Sexual Orientation Not on file documented as of this encounter Miscellaneous Notes * Cerner Conversion Note - Laurie ProviderMD - 09/26/2018 10:39 AM CDT Patient: TRUDI BLAIR Age: 63 [...] 139.5 kg DBW: 91.2 kg Labs: SEP 26 05:56 145 H 115 13 / 86 3.5 24 H 1.20 \ SEP 26 05:56 \ L 8.3 / 5.8 186 / L 26.3 \ Allergies: biaxin I/O: 580 / x7 voids Estimated CrCl: 65-70 mL/min Vitals: Vitals Signs (last 24 hrs) Last Charted Minimum Maximum Temp 98.1 (SEP 26 07:46) 97.4 (EDGARD 23 23:00) 98.2 (SEP 25 15:47) Apical HR 83 (SEP 24 10:11) 83 (EDGARD 24 10:11) 83 (EDGARD 24 10:11) Mon HR 83 (SEP 26 07:46) 68 (EDGARD 23 15:47) 83 (SEP 24 07:46) Resp Rate 19 (SEP 26 07:46) 16 (SEP 25 15:47) 19 (SEP 26 07:46) SBP H 160 (EDGARD 24 10:11) 138 (EDGARD 23 23:00) H 167 (EDGARD 23 19:00) DBP 74 (EDGARD 24 10:11) 64 (EDGARD 23 23:00) 74 (EDGARD 23 19:00) MAP 93 (SEP 26 07:46) 91 (SEP 25 15:47) 93 (SEP 26 07:46) SpO2 94 (SEP 26 07:46) 94 (EDGARD 24 07:46) 98 (SEP 25 15:47) Cultures: 08/10 blood: MRSA 08/10 urine: Enterococcus 08/19 blood: Enterococcus (vanc S) 08/19 L leg wound: S. epi, MRSA Current antibiotics: Vancomycin 500mg IV q24h (start date 09/14, 09/26 = day 13) Previous antibiotics: Ceftriaxone (08/30-09/02) Ertapenem (08/30-08/31) Daptmycin [...] 1. Vancomycin trough level therapeutic this am. Drawn prior to 3rd dose of this regimen but do not expect much accumulation. Continue vancomycin 500mg IV q24h. May redraw trough level around 09/29 or 09/30. 2. Monitor renal function closely. Some ongoing PILY attributed to sepsis from admission. BMP at least twice weekly on vancomycin. SCr stable at 1.2 today. 3. Abx planned until 10/05 per ID. 4. Pharmacy will continue to follow. Thank you for the consultation, Bethany Mo, SriniD Electronically signed by Blayne Fink Conversion Seafood And Service Meat Manager Cerner at 07/24/2022 3:36 PM CDT documented in this encounter Plan of Treatment Not on file documented as of this encounter Visit Diagnoses Not on filedocumented in this encounter Care Teams Filter Press Pumper Relationship Specialty Start Date End Date Juan José Kendall MD [address] [facility] [address] [place] [id number] PCP - General Family Medicine 12/25/22 Juan José Kendall MD [address] [facility] [address] [place] [id number] Referring Physician Family Medicine 12/25/22 documented as of this encounter
--- OUTSIDE RECORDS SUMMARY | 2024-03-11 09:17 | XMS_ITS | Encounter Summary ---
Author Organization [employer] Address [address] [place] [address] Care Team Providers Care Melter Supervisor Oxygen Furnace Name Role Phone Juan José Kendall MD Primary Care Provider + [phone] Juan José Kendall MD Unavailable [phone] Encounter Details Date Type Department Care Team (Late st Contact Info) Description 09/26/2018 Transcribed Document [facility] Family Medicine [facility] [address] ProviderLaurie MD [address] [place] [address] Social History Tobacco Use Types Packs/Day Years Used Date Smoking Tobacco: Never Assessed Comments Unknown Sex and Gender Information Value Date Recorded Sex Assigned at Not on file Legal Sex Female 2:23 PM CDT Gender Identity Not on file Sexual Orientation Not on file documented as of this encounter Miscellaneous Notes * Cerner Conversion Note - Laurie Garcia MD - 09/26/2018 9:45 PM CDT Patient: TRUDI BLAIR Age: 63 [...] pain under control, no trouble w. urination ???Nausea resolved ???Diarrhea resolved. Review of Systems Constitutional: No fever, [...] inj 4 mg 2 mL, IV Push, [id number] pantoprazole EC 40 mg tab 40 mg [...] Stress incontinence Physical Examination VS/Measurements Vital Measurements 09/26/2018 19:00 EDT Systolic Blood Pressure 149 mmHg HI Diastolic Blood Pressure 65 mmHg Temperature Source Oral Temperature Mode Fahrenheit Temperature, Fahrenheit 98.1 Deg F Clinical Temperature, C 36.7 Deg C Heart Rate Monitored 81 bpm Respiratory Rate 19 Breaths/Min Oxygen Saturation 100 % General: Alert and oriented, No acute [...] Review / Management Results review: All Results 09/26/2018 5:56 EDT Sodium Level 145 mmol/L Potassium Level 3.5 mmol/L Chloride Level 115 mmol/L HI Carbon Dioxide Level 24 mmol/L Anion Gap 10 Glucose Level 86 mg/dL Blood Urea Nitrogen 13 mg/dL Creatinine Level 1.20 mg/dL HI eGFR 55 mL/min/1.73m2 LOW eGFR NonAfrican 45 mL/min/1.73m2 LOW Bun/Creatinine 10.8 Calcium Level 8.2 mg/dL LOW Protein Total 5.3 Gram/dL LOW Albumin Level 2.2 Gram/dL LOW Globulin 3.1 Gram/dL A/G Ratio 0.7 LOW Bilirubin Total 0.5 mg/dL Alk Phos 119 Units/Liter AST 14 Units/Liter ALT 7 Units/Liter LOW CRP 3.1 mg/dL HI WBC 5.8 K/uL RBC 2.73 Million/uL LOW Hgb 8.3 g/dL LOW Hct 26.3 % LOW MCV 96.3 fL HI MCH 30.4 pg MCHC 31.6 Gram/dL LOW Platelet Count 186 K/uL MPV 12.1 fL RDW 18.3 % HI Neut % 65.7 % Neut # 3.80 K/uL Lymph % 15.5 % LOW Lymph # 0.90 x10(3)/uL LOW [place] % 10.0 % HI [place] # 0.58 K/uL Eos % 7.4 % HI Eos # 0.43 x10(3)/uL Baso % 0.9 % Baso # 0.05 x10(3)/uL Sed Rate Auto 11 mm/Hr Slide Review No IG# 0.03 x10(3)/uL IG% 0.50 % 09/25/2018 6:30 EDT Sodium Level 145 mmol/L Potassium Level 3.6 mmol/L Chloride Level 115 mmol/L HI Carbon Dioxide Level 24 mmol/L Anion Gap 10 Glucose Level 82 mg/dL Blood Urea Nitrogen 15 mg/dL Creatinine Level 1.20 mg/dL HI eGFR 55 mL/min/1.73m2 LOW eGFR NonAfrican 45 mL/min/1.73m2 LOW Bun/Creatinine 12.5 Calcium Level 8.4 mg/dL . Condition: Stable. Impression and Plan [...] on filedocumented in this encounter Care Teams Melter Supervisor Oxygen Furnace Relationship Specialty Start Date End Date Juan José Kendall MD [address] [facility] [address] [place] [phone] PCP - General Family Medicine 12/25/22 Juan José Kendall MD [address] [facility] [address] [place] [phone] Referring Physician Family Medicine 12/25/22 documented as of this encounter
--- OUTSIDE RECORDS SUMMARY | 2024-03-11 09:17 | XMS_ITS | Encounter Summary ---
Author Organization [employer] Address [address] [place] [address] Care Team Providers Care Fiction And Nonfiction Author Name Role Phone Juan José Kendall MD Primary Care Provider +- [phone] Juan José Kendall MD Unavailable [phone] Encounter Details Date Type Department Care Team (Late st Contact Info) Description 09/28/2018 Transcribed Document [facility] [place] [address] ProviderLaurie MD [address] [place] [address] Social History Tobacco Use Types Packs/Day Years Used Date Smoking Tobacco: Never Assessed Comments Unknown Sex and Gender Information Value Date Recorded Sex Assigned at Not on file Legal Sex Female 2:23 PM CDT Gender Identity Not on file Sexual Orientation Not on file documented as of this encounter Miscellaneous Notes * Cerner Conversion Note - Historical ProviderMD - 09/28/2018 2:00 AM CDT Park Attendant Details Entered On: 09/28/2018 4:43 EDT Performed On: 09/28/2018 2:00 EDT by Angy Esqueda, Emeli Order Details Transport Mode Order Detail : Bed (including specialty) Isolation Precautions Order Detail : Standard Precautions Order Detail : 0 IV Order Detail : 0 Oxygen Order Detail : 0 Nurse Collect Order Detail : 1 Lift/Transfer : Maximal assist Central Line Order Detail : Yes Room Service : Appropriate Arterial Line : No Angy Esqueda Rn - 09/28/2018 4:42 EDT documented in this encounter Plan of Treatment Not on file documented as of this encounter Visit Diagnoses Not on filedocumented in this encounter Care Teams Fiction And Nonfiction Author Relationship Specialty Start Date End Date Juan José Kendall MD [address] [facility] [address] [place] [phone] PCP - General Family Medicine 12/25/22 Juan José Kendall MD [address] [facility] [address] [place] [phone] Referring Physician Family Medicine 12/25/22 documented as of this encounter
--- OUTSIDE RECORDS SUMMARY | 2024-03-11 09:17 | XMS_ITS | Encounter Summary ---
Author Organization [employer] Address [address] [place] [address] Care Team Providers Care Supervisor Phosphorus Processing Name Role Phone Juan José Kendall MD Primary Care Provider + [phone] Juan José Kendall MD Unavailable [phone] Encounter Details Date Type Department Care Team (Late st Contact Info) Description 09/27/2018 Transcribed Document [facility] Family Medicine [facility] [place] [address] ProviderLaurie MD [address] [place] [address] Social History Tobacco Use Types Packs/Day Years Used Date Smoking Tobacco: Never Assessed Comments Unknown Sex and Gender Information Value Date Recorded Sex Assigned at Not on file Legal Sex Female 2:23 PM CDT Gender Identity Not on file Sexual Orientation Not on file documented as of this encounter Miscellaneous Notes * Cerner Conversion Note - Laurie Garcia MD - 09/27/2018 7:17 PM CDT Patient: TRUDI BLAIR Age: 63 [...] inj 4 mg 2 mL, IV Push, [id number] pantoprazole EC 40 mg tab 40 mg [...] Stress incontinence Physical Examination VS/Measurements Vital Measurements 09/27/2018 15:00 EDT Systolic Blood Pressure 142 mmHg HI Diastolic Blood Pressure 77 mmHg Temperature Source Oral Temperature Mode Fahrenheit Temperature, Fahrenheit 98.2 Deg F Clinical Temperature, C 36.8 Deg C Heart Rate Monitored 69 bpm Respiratory Rate 18 Breaths/Min Oxygen Saturation 97 % 09/27/2018 8:00 EDT Systolic Blood Pressure 156 mmHg HI Diastolic Blood Pressure 70 mmHg Mean Arterial Pressure (MAP)-BMDI 90 Temperature, Fahrenheit 98.4 Deg F Clinical Temperature, C 36.9 Deg C Heart Rate Monitored 86 bpm Oxygen Saturation 98 % Oxygen Therapy Mode Room air General: [...] -Continue wound care -Pain control -DVT prophylaxis -For risk precautions -Sleep apnea precautions -Stress ulcer prophylaxis. documented in this encounter Plan of Treatment Not on file documented as of this encounter Visit Diagnoses Not on filedocumented in this encounter Care Teams Supervisor Phosphorus Processing Relationship Specialty Start Date End Date Juan José Kendall MD [address] [place] [phone] PCP - General Family Medicine 12/25/22 Juan José Kendall MD [address] [place] [phone] Referring Physician Family Medicine 12/25/22 documented as of this encounter
--- OUTSIDE RECORDS SUMMARY | 2024-03-11 09:17 | XMS_ITS | Encounter Summary ---
Author Organization [employer] Address [address] [place] [address] Care Team Providers Care Maintenance Shop Welder Name Role Phone Juan José Kendall MD Primary Care Provider +- [phone] Juan José Kendall MD Unavailable [phone] Encounter Details Date Type Department Care Team (Late st Contact Info) Description 09/27/2018 Transcribed Document [facility] [place] [facility] [place] [address] ProviderLaurie MD [address] [place] [address] Social History Tobacco Use Types Packs/Day Years Used Date Smoking Tobacco: Never Assessed Comments Unknown Sex and Gender Information Value Date Recorded Sex Assigned at Not on file Legal Sex Female 2:23 PM CDT Gender Identity Not on file Sexual Orientation Not on file documented as of this encounter Miscellaneous Notes * Cerner Conversion Note - Historical ProviderMD - 09/27/2018 2:00 AM CDT Warehouse Associate Driver Details Entered On: 09/27/2018 3:20 EDT Performed On: 09/27/2018 2:00 EDT by Angy Esqueda Rn Order [...] Line : No Angy Esqueda Rn - 09/27/2018 3:20 EDT Electronically signed by Aleks [facility] Conversion Fraud Analyst Cerner at 07/24/2022 3:56 PM CDT documented in this encounter Plan of Treatment Not on file documented as of this encounter Visit Diagnoses Not on filedocumented in this encounter Care Teams Maintenance Shop Welder Relationship Specialty Start Date End Date Juan José Kendall MD [address] [facility] [address] [place] [phone] PCP - General Family Medicine 12/25/22 Juan José Kendall MD [address] [facility] [address] [place] [phone] Referring Physician Family Medicine 12/25/22 documented as of this encounter
--- OUTSIDE RECORDS SUMMARY | 2024-03-11 09:17 | XMS_ITS | Encounter Summary ---
Author Organization [employer] Address [address] [place] [address] Care Team Providers Care Psychologist Personnel Name Role Phone Juan José Kendall MD Primary Care Provider + [phone] Juan José Kendall MD Unavailable [phone] Encounter Details Date Type Department Care Team (Late st Contact Info) Description 09/29/2018 Transcribed Document [place] Family Medicine [address] [place] [address] ProviderLaurie MD [address] [place] [address] Social History Tobacco Use Types Packs/Day Years Used Date Smoking Tobacco: Never Assessed Comments Unknown Sex and Gender Information Value Date Recorded Sex Assigned at Not on file Legal Sex Female 2:23 PM CDT Gender Identity Not on file Sexual Orientation Not on file documented as of this encounter Miscellaneous Notes * Cerner Conversion Note - Historical ProviderMD - 09/29/2018 5:00 PM CDT Chart Check - Review Order Profile Entered On: 09/29/2018 17:49 EDT Performed On: 09/29/2018 17:00 EDT by FRANTZ BROWN RN Chart Check Powerplans Initiated/Discontinued as Appropriate : Yes All Active Orders Reviewed : Yes FRANTZ BROWN, RN - 09/29/2018 17:49 EDT documented in this encounter Plan of Treatment Not on file documented as of this encounter Visit Diagnoses Not on filedocumented in this encounter Care Teams Psychologist Personnel Relationship Specialty Start Date End Date Juan José Kendall MD [address] [place] [phone] PCP - General Family Medicine 12/25/22 Juan José Kendall MD [address] [place] [phone] Referring Physician Family Medicine 12/25/22 documented as of this encounter
--- OUTSIDE RECORDS SUMMARY | 2024-03-11 09:18 | XMS_ITS | Encounter Summary ---
Author Organization [employer] Address [address] [facility] [facility] [address] [place] [address] Care Team Providers Care Hide Measuring Machine Operator Name Role Phone Juan José Kendall MD Primary Care Provider +- [phone] Juan José Kendall MD Unavailable [phone] Encounter Details Date Type Department Care Team (Late st Contact Info) Description 09/20/2018 Transcribed Document [facility] [facility] [place] [address] ProviderLaurie MD [address] [place] [address] Social History Tobacco Use Types Packs/Day Years Used Date Smoking Tobacco: Never Assessed Comments Unknown Sex and Gender Information Value Date Recorded Sex Assigned at Not on file Legal Sex Female 2:23 PM CDT Gender Identity Not on file Sexual Orientation Not on file documented as of this encounter Miscellaneous Notes * Cerner Conversion Note - Laurie ProviderMD - 09/20/2018 3:00 AM CDT Pain Assessment Entered On: 09/20/2018 7:56 EDT Performed On: 09/20/2018 4:45 EDT by Linh Honeycutt RN Intervention Information: acetaminophen Performed by Linh Honeycutt RN on 09/20/2018 03:45:00 EDT acetaminophen,500mg Oral Pain Assessment Pain Assessment : Follow-up assessment Pain Scale Goal : 3 Pain Improved by Intervention : Yes Linh Honeycutt RN - 09/20/2018 7:56 EDT Electronically signed by Adia Fink Conversion Insurance Healthcare Representative Cerner at 07/24/2022 3:41 PM CDT documented in this encounter Plan of Treatment Not on file documented as of this encounter Visit Diagnoses Not on filedocumented in this encounter Care Teams Hide Measuring Machine Operator Relationship Specialty Start Date End Date Juan José Kendall MD [address] [facility] [address] [place] [phone] PCP - General Family Medicine 12/25/22 Juan José Kendall MD [address] [facility] [address] [place] [phone] Referring Physician Family Medicine 12/25/22 documented as of this encounter
--- OUTSIDE RECORDS SUMMARY | 2024-03-11 09:18 | XMS_ITS | Encounter Summary ---
Author Organization [employer] Address [address] [place] [address] Care Team Providers Care Lacquer Maker Name Role Phone Juan José Kendall MD Primary Care Provider +- [phone] Juan José Kendall MD Unavailable [phone] Encounter Details Date Type Department Care Team (Late st Contact Info) Description 09/22/2018 Transcribed Document [facility] [place] [facility] [place] [address] ProviderLaurie MD [address] [place] [address] Social History Tobacco Use Types Packs/Day Years Used Date Smoking Tobacco: Never Assessed Comments Unknown Sex and Gender Information Value Date Recorded Sex Assigned at Not on file Legal Sex Female 2:23 PM CDT Gender Identity Not on file Sexual Orientation Not on file documented as of this encounter Miscellaneous Notes * Cerner Conversion Note - Historical ProviderMD - 09/22/2018 3:00 PM CDT Pain Assessment Entered On: 09/22/2018 15:40 EDT Performed On: 09/22/2018 15:55 EDT by FRANTZ BROWN, RN Intervention Information: acetaminophen Performed by FRANTZ BROWN, RN on 09/22/2018 14:55:00 EDT acetaminophen,500mg Oral Pain Assessment Pain Assessment : Follow-up assessment Pain Scale Goal : 3 Pain Scale Used : 0-10 Scale FRANTZ BROWN RN - 09/22/2018 15:40 EDT Pain Scale Intensity : 2 FRANTZ BROWN RN - 09/22/2018 15:40 EDT Image 4 - Images currently included in the form version of this document have not been included in the text rendition version of the form. documented in this encounter Plan of Treatment Not on file documented as of this encounter Visit Diagnoses Not on filedocumented in this encounter Care Teams Lacquer Maker Relationship Specialty Start Date End Date Juan José Kendall MD [address] [facility] [address] [place] [address] PCP - General Family Medicine 12/25/22 Juan José Kendall MD [address] [facility] [address] [place] [phone] Referring Physician Family Medicine 12/25/22 documented as of this encounter
--- OUTSIDE RECORDS SUMMARY | 2024-03-11 09:18 | XMS_ITS | Encounter Summary ---
Author Organization [employer] Address [address] [place] [address] Care Team Providers Care Flume Tender Name Role Phone Juan José Kendall MD Primary Care Provider +- [phone] Juan José Kendall MD Unavailable [phone] Encounter Details Date Type Department Care Team (Late st Contact Info) Description 09/19/2018 Transcribed Document [facility] [place] Medicine [facility] [place] [address] ProviderLaurie MD [address] [place] [address] Social History Tobacco Use Types Packs/Day Years Used Date Smoking Tobacco: Never Assessed Comments Unknown Sex and Gender Information Value Date Recorded Sex Assigned at Not on file Legal Sex Female 2:23 PM CDT Gender Identity Not on file Sexual Orientation Not on file documented as of this encounter Miscellaneous Notes * Cerner Conversion Note - Historical ProviderMD - 09/19/2018 9:00 AM CDT Pain Assessment Entered On: 09/19/2018 13:31 EDT Performed On: 09/19/2018 10:16 EDT by ENOCH PERDOMO LPN Intervention Information: acetaminophen Performed by ENOCH PERDOMO LPN on 09/19/2018 09:16:00 EDT acetaminophen,500mg Oral Pain Assessment Pain Assessment : Follow-up assessment Pain Scale Goal : 3 Pain Scale Used : 0-10 Scale Location : Knee, left ENOCH PERDOMO LPN - 09/19/2018 13:31 EDT Pain Scale Intensity : 0 ENOCH PERDOMO LPN - 09/19/2018 13:31 EDT Image 4 - Images currently included in the form version of this document have not been included in the text rendition version of the form. documented in this encounter Plan of Treatment Not on file documented as of this encounter Visit Diagnoses Not on filedocumented in this encounter Care Teams Flume Tender Relationship Specialty Start Date End Date Juan José Kendall MD [address] [facility] [address] [place] [address] PCP - General Family Medicine 12/25/22 [place] [address] [place] [address] [address] [place] [address] Referring Physician Family Medicine 12/25/22 documented as of this encounter
--- OUTSIDE RECORDS SUMMARY | 2024-03-11 09:18 | XMS_ITS | Encounter Summary ---
Author Organization [employer] Address [address] [place] [address] Care Team Providers Care Medical Manager Name Role Phone Juan José Kendall MD Primary Care Provider +- [phone] Juan José Kendall MD Unavailable [phone] Encounter Details Date Type Department Care Team (Late st Contact Info) Description 09/21/2018 Transcribed Document [facility] [place] [facility] [place] [address] ProviderLaurie MD [address] [place] [address] Social History Tobacco Use Types Packs/Day Years Used Date Smoking Tobacco: Never Assessed Comments Unknown Sex and Gender Information Value Date Recorded Sex Assigned at Not on file Legal Sex Female 2:23 PM CDT Gender Identity Not on file Sexual Orientation Not on file documented as of this encounter Miscellaneous Notes * Cerner Conversion Note - Laurie ProviderMD - 09/21/2018 8:22 AM CDT Care Management Assessment/Plan Entered On: 09/21/2018 8:22 EDT Performed On: 09/21/2018 8:22 EDT by PJ NELSON Care Management Note Care Management Note : 09/21/2018 [phone] to request coverage for continued LTACH services. Approval pending. Auth# [id number]. Care Management Note Report : PJ NELSON - 09/15/18 11:34:17 09/15/2018 Fax recieved from [facility] with approval for LTACH services 6/13-09/21/2018. Auth# [id number]. Fax next clinical review to [phone] on 09/21/2018. PJ NELSON - 09/14/18 08:28:49 09/14/2018 Clinical review faxed to [facility] ([phone]) to request coverage for continued LTACH services. Approval pending. Auth# [id number]. Chuyita Briceno, Clinical Assessment Liaison - 09/09/18 [...] unit or SNF. She has previously used [facility] and prefers to use them again if needed. The patient owns a shower chair, BSC and w/c. The patient has never needed a dialysis clinic. The patient has not fallen in the past 3 months. PCP- Dr. Ranjeet [facility] Orthopedic- Dr. Shay Guerrero [facility] [place] [facility] [place] The patient does wish to return home upon discharge but understands that rehab/SNF may be needed. All papers were explained and signed. No other issues. CM will continue to monitor. Documentation Status Complete : Yes PJ NELSON - 09/21/2018 8:22 EDT documented in this encounter Plan of Treatment Not on file documented as of this encounter Visit Diagnoses Not on filedocumented in this encounter Care Teams Medical Manager Relationship Specialty Start Date End Date Juan José Kendall MD [address] [facility] [address] [place] [address] PCP - General Family Medicine 12/25/22 Juan José Kendall MD [address] [place] [address] Referring Physician Family Medicine 12/25/22 documented as of this encounter
--- OUTSIDE RECORDS SUMMARY | 2024-03-11 09:18 | XMS_ITS | Encounter Summary ---
Author Organization [employer] Address [address] [facility] [place] [address] Care Team Providers Care Director Of Student Financial Aid Name Role Phone Juan José Kendall MD Primary Care Provider +- [phone] Juan José Kendall MD Unavailable [phone] Encounter Details Date Type Department Care Team (Late st Contact Info) Description 09/18/2018 Transcribed Document [facility] [address] ProviderLaurie MD [address] [place] [id number] Social History Tobacco Use Types Packs/Day Years Used Date Smoking Tobacco: Never Assessed Comments Unknown Sex and Gender Information Value Date Recorded Sex Assigned at Not on file Legal Sex Female 2:23 PM CDT Gender Identity Not on file Sexual Orientation Not on file documented as of this encounter Miscellaneous Notes * Cerner Conversion Note - Laurie ProviderMD - 09/18/2018 9:00 PM CDT Pain Assessment Entered On: 09/19/2018 2:06 EDT Performed On: 09/18/2018 23:08 EDT by Mercedes Krishnan RN Intervention Information: acetaminophen Performed by Mercedes Krishnan RN on 09/18/2018 22:08:00 EDT acetaminophen,500mg Oral Pain Assessment Pain Assessment : Follow-up assessment Pain Scale Goal : 3 Pain Scale Used : 0-10 Scale Mercedes Krishnan RN - 09/19/2018 2:06 EDT Pain Scale Intensity : 3 Mercedes Krishnan RN - 09/19/2018 2:06 EDT Image 4 - Images currently included in the form version of this document have not been included in the text rendition version of the form. documented in this encounter Plan of Treatment Not on file documented as of this encounter Visit Diagnoses Not on filedocumented in this encounter Care Teams Director Of Student Financial Aid Relationship Specialty Start [place] [address] [place] [address] [address] [place] [address] PCP - General Family Medicine 12/25/22 Juan José Kendall MD [address] [place] [address] [address] [place] [address] Referring Physician Family Medicine 12/25/22 documented as of this encounter
--- OUTSIDE RECORDS SUMMARY | 2024-03-11 09:18 | XMS_ITS | Encounter Summary ---
Author Organization [employer] Address [address] [place] [address] Care Team Providers Care Personal Security Specialist Name Role Phone Juan José Kendall MD Primary Care Provider +- [phone] Juan José Kendall MD Unavailable [phone] Encounter Details Date Type Department Care Team (Late st Contact Info) Description 09/18/2018 Transcribed Document [facility] [place] [facility] [place] [address] ProviderLaurie MD [address] [place] [address] Social History Tobacco Use Types Packs/Day Years Used Date Smoking Tobacco: Never Assessed Comments Unknown Sex and Gender Information Value Date Recorded Sex Assigned at Not on file Legal Sex Female 2:23 PM CDT Gender Identity Not on file Sexual Orientation Not on file documented as of this encounter Miscellaneous Notes * Cerner Conversion Note - Laurie Garcia MD - 09/18/2018 4:16 PM CDT Patient: TRUDI BLAIR Age: 63 [...] pain under control, no trouble w. urination. ???Diarrhea. Resolved ???Was improved ???Participating with PT/OT ???Renal function continued to improve ???Poor appetite Review of Systems Constitutional: No fever, No [...] reflux Current medications: Medications (36) Active Scheduled: (15) acetaminophen 500 mg tab 500 mg 1 Tab, Oral, Q6HInt ammonium lact 12% lot 225 g 1 Application, Topical, BID atorvastatin 20 mg tab 20 mg 1 Tab, Oral, At Bedtime cholestyramine *LIGHT* pwd 4 g 4 Gram 1 Packet, Oral, BID collagenase 250 unit/1 g oint 2 g 1 Application, Topical, Daily heparin 5,000 units/1 mL inj 5,000 Units 1 mL, SubCutaneous, Q8HInt metoclopramide 10 mg tab 10 mg 1 Tab, Oral, BID metoprolol tartrate 25 mg tab 25 mg 1 Tab, Oral, Daily ondansetron 4 mg/2 mL inj 4 mg 2 mL, IV Push, [id number] pantoprazole EC 40 mg tab 40 mg 1 Tab, Oral, Daily potassium chloride CR 20 mEq tab 20 mEq 1 Tab, Oral, BID saccharomyces boulardii 250 mg cap 250 mg 1 Cap, Oral, Daily scopolamine 1.5 mg/72 hr patch 1 Patch, TransDermal, Q3Days topiramate 25 mg sprinkle cap 25 mg 1 Cap, Oral, BID vancomycin + Dextrose 5% in Water 250 mL 1,000 mg, IV Piggyback, [id number] Continuous: (0) PRN: (21) acetaminophen 325 mg tab 650 mg 2 [...] tab 60 mEq 3 Tab, Oral, Q2H sodium phosphate 15 mMole 5 mL, IV Piggyback, Daily sodium phosphate 15 mMole 5 mL, IV Piggyback, Q6H traZODone 50 mg tab 50 mg 1 Tab, Oral, At Bedtime Problem list: Active Problems (8) Arthritis At risk for sleep apnea Back pain GERD (gastroesophageal reflux disease) High cholesterol History of obstructive sleep apnea HTN (hypertension) Stress incontinence Physical Examination VS/Measurements Vital Measurements 09/18/2018 7:00 EDT Systolic Blood Pressure 153 mmHg HI Diastolic Blood Pressure 69 mmHg Temperature Source Oral Temperature Mode Fahrenheit Temperature, Fahrenheit 98.2 Deg F Clinical Temperature, C 36.8 Deg C Heart Rate Monitored 88 bpm Respiratory Rate 16 Breaths/Min Oxygen Saturation [...] Review / Management Results review: All Results 09/18/2018 4:29 EDT Sodium Level 146 mmol/L Potassium Level 3.4 mmol/L LOW Chloride Level 116 mmol/L HI Carbon Dioxide Level 25 mmol/L Anion Gap 8 LOW Glucose Level 90 mg/dL Blood Urea Nitrogen 30 mg/dL HI Creatinine Level 1.10 mg/dL HI eGFR >60 mL/min/1.73m2 eGFR NonAfrican 50 mL/min/1.73m2 LOW Bun/Creatinine 27.3 HI Calcium Level 8.0 mg/dL LOW Platelet Count 169 K/uL 09/17/2018 4:32 EDT Sodium Level 147 mmol/L HI Potassium Level 3.5 mmol/L Chloride Level 116 mmol/L HI Carbon Dioxide Level 25 mmol/L Anion Gap 10 Glucose Level 97 mg/dL Blood Urea Nitrogen 35 mg/dL HI Creatinine Level 1.20 mg/dL HI eGFR 55 mL/min/1.73m2 LOW eGFR NonAfrican 45 mL/min/1.73m2 LOW Bun/Creatinine 29.2 HI Calcium Level 8.1 mg/dL LOW . Condition: Stable. Impression and [...] and urine output. -Continue on IV antibiotics -Continue on wound care -Pain control -DVT prophylaxis -Close monitoring fluid and electrolytes -Scheduled and when necessary nebs -For risk precautions -Sleep apnea precautions -Stress ulcer prophylaxis. Orders Order Profile (Selected) Inpatient Orders Ordered (Scheduled) CBC w/ Auto Diff: Specimen Type: Blood, AM Draw collect, 09/19/18 4:00:00 EDT, 1-Time, Stop: 09/19/18 4:00:00 EDT, Nurse Collect CMP Comprehensive Metabolic Panel: Specimen Type: Blood, AM Draw collect, 09/19/18 4:00:00 EDT, 1-Time, Stop: 09/19/18 4:00:00 EDT, Nurse Collect CRP C-Reactive Protein: Specimen Type: Blood, AM Draw collect, 09/19/18 4:00:00 EDT, 1-Time, Stop: 09/19/18 4:00:00 EDT, Nurse Collect ESR Sedimentation Rate Auto: Specimen Type: Blood, AM Draw collect, 09/19/18 4:00:00 EDT, 1-Time, Stop: 09/19/18 4:00:00 EDT, Nurse Collect Magnesium Level: Specimen Type: Blood, AM Draw collect, 09/19/18 4:00:00 EDT, 1-Time, Stop: 09/19/18 4:00:00 EDT, Nurse Collect Phosphorus Level: Specimen Type: Blood, AM Draw collect, 09/19/18 4:00:00 EDT, 1-Time, Stop: 09/19/18 4:00:00 EDT, Nurse Collect Prealbumin: Specimen Type: Blood, AM Draw collect, 09/19/18 4:00:00 EDT, 1-Time, Stop: 09/19/18 4:00:00 EDT, Nurse Collect. documented in this encounter Plan of Treatment Not on file documented as of this encounter Visit Diagnoses Not on filedocumented in this encounter Care Teams Personal Security Specialist Relationship Specialty Start Date End Date Juan José Kendall MD [address] [place] [address] [address] [place] [address] PCP - General Family Medicine 12/25/22 Juan José Kendall MD [facility] [address] [place] [address] Referring Physician Family Medicine 12/25/22 documented as of this encounter
--- OUTSIDE RECORDS SUMMARY | 2024-03-11 09:18 | XMS_ITS | Encounter Summary ---
Author Organization [employer] Address [address] [facility] [place] [address] Care Team Providers Care Regional Vice President Surgical Sales Name Role Phone Juan José Kendall MD Primary Care Provider +- [phone] Juan José Kendall MD Unavailable [phone] Encounter Details Date Type Department Care Team (Late st Contact Info) Description 09/20/2018 Transcribed Document [facility] [place] Family Medicine [facility] [place] [address] ProviderLaurie MD [address] [place] [address] [id number] Social History Tobacco Use Types Packs/Day Years Used Date Smoking Tobacco: Never Assessed Comments Unknown Sex and Gender Information Value Date Recorded Sex Assigned at Not on file Legal Sex Female 2:23 PM CDT Gender Identity Not on file Sexual Orientation Not on file documented as of this encounter Miscellaneous Notes * Cerner Conversion Note - Historical ProviderMD - 09/20/2018 9:00 AM CDT Pain Assessment Entered On: 09/20/2018 10:30 EDT Performed On: 09/20/2018 10:00 EDT by Renate Wilson RN Intervention Information: acetaminophen Performed by Renate Wilson RN on 09/20/2018 09:00:00 EDT acetaminophen,500mg Oral Pain Assessment Pain Assessment : Follow-up assessment Pain Scale Goal : 3 Pain Scale Used : 0-10 Scale Renate Wilson RN - 09/20/2018 10:30 EDT Pain Scale Intensity : 3 Renate Wilson RN - 09/20/2018 10:30 EDT Image 4 - Images currently included in the form version of this document have not been included in the text rendition version of the form. documented in this encounter Plan of Treatment Not on file documented as of this encounter Visit Diagnoses Not on filedocumented in this encounter Care Teams Regional Vice President Surgical Sales Relationship Specialty Start Date End Date Juan José Kendall MD [address] [facility] [address] [place] [phone] PCP - General Family Medicine 12/25/22 Juan José Kendall MD [address] [place] [address] [address] [place] [address] Referring Physician Family Medicine 12/25/22 documented as of this encounter
--- OUTSIDE RECORDS SUMMARY | 2024-03-11 09:18 | XMS_ITS | Encounter Summary ---
Author Organization [employer] Address [address] [place] [address] Care Team Providers Care Freight Service Inspector Name Role Phone Juan José Kendall MD Primary Care Provider +- [phone] Juan José Kendall MD Unavailable [phone] Encounter Details Date Type Department Care Team (Late st Contact Info) Description 09/19/2018 Transcribed Document [facility] [place] Family Medicine [facility] [place] [address] ProviderLaurie MD [address] [place] [id number] Social History Tobacco Use Types Packs/Day Years Used Date Smoking Tobacco: Never Assessed Comments Unknown Sex and Gender Information Value Date Recorded Sex Assigned at Not on file Legal Sex Female 2:23 PM CDT Gender Identity Not on file Sexual Orientation Not on file documented as of this encounter Miscellaneous Notes * Cerner Conversion Note - Laurie ProviderMD - 09/19/2018 3:55 PM CDT Patient: TRUDI BLAIR Age: 63 [...] 139.5 kg DBW: 91.2 kg Labs: SEP 19 05:26 146 H 116 H 27 / 88 L 3.4 24 H 1.10 \ SEP 19 05:26 \ L 8.2 / 5.7 174 / L 26.3 \ Allergies: biaxin I/O: 370 / e3agmns Estimated CrCl: 55-60 mL/min Vitals: Vitals Signs (last 24 hrs) Last Charted Minimum Maximum Temp 98.2 (SEP 19 15:00) 97.9 (SEP 18 23:00) 98.0 (SEP 18 16:00) Apical HR 79 (SEP 19 09:16) 79 (SEP 19 09:16) 79 (SEP 19 09:16) Mon HR 74 (SEP 19 15:00) 74 (SEP 16 16:00) 81 (SEP 16 19:00) Resp Rate 16 (SEP 19 15:00) 16 (SEP 16 16:00) 18 (SEP 16 19:00) SBP H 148 (SEP 17 15:00) 136 (SEP 16 23:00) H 152 (SEP 16 16:00) DBP 74 (SEP 17 15:00) L 58 (SEP 16 23:00) 74 (SEP 19 15:00) MAP 76 (SEP 18 23:00) 76 (SEP 16 23:00) 76 (SEP 16 23:00) SpO2 98 (SEP 19 15:00) L 91 (SEP 16 19:00) 98 (SEP 19 15:00) Cultures: 08/10 blood: MRSA 08/10 urine: Enterococcus 08/19 blood: Enterococcus (vanc S) 08/19 L leg wound: S. epi, MRSA Current antibiotics: Vancomycin 1000mg IV q24h (start date 09/14, 09/19 = day 6) Previous antibiotics: Ceftriaxone (08/30-09/02) Ertapenem (08/30-08/31) Daptmycin (08/30-09/14) Vancomycin dosing history: Vancomycin 1250mg IV q24h --> 09/17 tr = 19.3 mcg/mL drawn on time A/P: 1. Vancomycin trough level supratherapeutic on 09/17. Dose reduced to 1000mg IV q24h. Trough was likely not at steady state, expect further accumulation. Plan to check trough level 09/21. 2. Monitor renal function closely. Some ongoing PILY attributed to sepsis from admission. BMP at least twice weekly on vancomycin. SCr improving, down to 1.1 today. 3. Abx planned until 10/05 per ID. 4. Pharmacy will continue to follow. Thank you for the consultation, Bethany Mo, SriniD Electronically signed by Aleks, [facility] Conversion Refuse And Recycling Worker Cerner at 07/24/2022 3:46 PM CDT documented in this encounter Plan of Treatment Not on file documented as of this encounter Visit Diagnoses Not on filedocumented in this encounter Care Teams Freight Service Inspector Relationship Specialty Start Date End Date Juan José Kendall MD [address] [facility] [address] [place] [phone] PCP - General Family Medicine 12/25/22 Juan José Kendall MD [facility] [place] [facility] [address] [place] [phone] Referring Physician Family Medicine 12/25/22 documented as of this encounter
--- OUTSIDE RECORDS SUMMARY | 2024-03-11 09:18 | XMS_ITS | Encounter Summary ---
Author Organization [employer] Address [address] [place] [address] Care Team Providers Care Sole Stapler Welt Name Role Phone Juan José Kendall MD Primary Care Provider +- [phone] Juan José Kendall MD Unavailable [phone] Encounter Details Date Type Department Care Team (Late st Contact Info) Description 09/20/2018 Transcribed Document [facility] [place] [facility] [place] [address] ProviderLaurie MD [address] [place] [address] Social History Tobacco Use Types Packs/Day Years Used Date Smoking Tobacco: Never Assessed Comments Unknown Sex and Gender Information Value Date Recorded Sex Assigned at Not on file Legal Sex Female 2:23 PM CDT Gender Identity Not on file Sexual Orientation Not on file documented as of this encounter Miscellaneous Notes * Cerner Conversion Note - Historical ProviderMD - 09/20/2018 2:00 AM CDT Pc Technician Details Entered On: 09/20/2018 3:49 EDT Performed On: 09/20/2018 2:00 EDT by Linh Honeycutt RN Order Details Transport Mode Order Detail : Bed (including specialty) Isolation Precautions Order Detail : Standard Precautions Order Detail : 0 Nurse Collect Order Detail : 1 Lift/Transfer : Maximal assist Central Line Order Detail : Yes Room Service : Appropriate Arterial Line : No Linh Honeycutt RN - 09/20/2018 3:49 EDT documented in this encounter Plan of Treatment Not on file documented as of this encounter Visit Diagnoses Not on filedocumented in this encounter Care Teams Sole Stapler Welt Relationship Specialty Start Date End Date Juan José Kendall MD [address] [facility] [address] [place] [phone] PCP - General Family Medicine 12/25/22 Juan José Kendall MD [facility] [address] [place] [phone] Referring Physician Family Medicine 12/25/22 documented as of this encounter
--- OUTSIDE RECORDS SUMMARY | 2024-03-11 09:18 | XMS_ITS | Encounter Summary ---
Author Organization [employer] Address [address] [place] [address] Care Team Providers Care Administrative Nursing Supervisor Name Role Phone Juan José Kendall MD Primary Care Provider +- [phone] Juan José Kendall MD Unavailable [phone] Encounter Details Date Type Department Care Team (Late st Contact Info) Description 09/21/2018 Transcribed Document [facility] [place] [facility] [place] [address] ProviderLaurie MD [address] [place] [id number] Social History Tobacco Use Types Packs/Day Years Used Date Smoking Tobacco: Never Assessed Comments Unknown Sex and Gender Information Value Date Recorded Sex Assigned at Not on file Legal Sex Female 2:23 PM CDT Gender Identity Not on file Sexual Orientation Not on file documented as of this encounter Miscellaneous Notes * Cerner Conversion Note - Historical ProviderMD - 09/21/2018 6:06 PM CDT Patient: TRUDI BLAIR Age: 63 [...] repair. She was more recently admitted to [facility] x2 earlier this month on 08/16 [...] getting wound care. She was transferred to [facility] today for a higher level of care. [...] I last saw her. No new rashes ROS: As above Past Medical History: Arthritis Back pain GERD HLD NUVIA HTN Stress incontinence Past Surgical History: Left TKA, 2017 left patellar tendon repair, 06/2018 lumbar fusion hysterectomy right TKA right patellar tendon repair Family History: CAD HTN Cancer Social History: . lives in [place]. No tobacco, ETOH, or illicit drug use. Social & Psychosocial Habits Alcohol 06/23/2018 Alcohol Use History, Social Habits No Substance Abuse 06/23/2018 Recreational Drug Use History No Tobacco 06/23/2018 Smoking Status Never (less than 100 in l Smokeless Tobacco Status Never Objective: Vitals Signs (last 24 hrs) Last Charted Minimum Maximum Temp 98.4 (SEP 21 16:00) 98.4 (SEP 21 16:00) 98.4 (SEP 20 19:00) Apical HR H 102 (SEP 21 08:20) H 102 (SEP 21 08:20) H 102 (SEP 21 08:20) Mon HR 73 (SEP 21 16:00) 73 (SEP 21 16:00) 92 (SEP 20 23:00) Resp Rate 16 (SEP 21 16:00) 16 (SEP 21 07:46) 18 (SEP 20 19:00) SBP H 147 (SEP 21 16:00) H 145 (SEP 21 07:46) H 148 (SEP 20 19:00) DBP 61 (SEP 21 16:00) 60 (SEP 21 07:46) 71 (SEP 20 23:00) MAP 83 (SEP 21 16:00) 82 (SEP 21 07:46) 90 (SEP 18 23:00) SpO2 99 (SEP 21 16:00) 94 (SEP 20 23:00) 100 (SEP 20 20:00) PE: General: patient is alert and in no acute distress. morbidly obese HEENT: sclera white without conjunctival injection. No erythema, exudate or ulceration. No labial ulcers Lungs: Clear to auscultation bilaterally without wheezes, rales, or rhonchi. Normal respiratory effort Cardiovascular: normal S1/S2; RRR, no m/r/g. Abdomen: soft, non-tender, non-distended, positive bowel sounds throughout. Lower extremity: No cyanosis, clubbing or edema. wound vac in place over right lower extremity, no surrounding erythema Neuro: Alert and oriented x3. No focal deficits. Skin: Without rash; c/d/i groshong cath site over right chest is without erythema LABS: Labs (Last four charted values) WBC 5.7 (EDGARD 17) 7.0 (EDGARD 14) 7.2 (EDGARD 10) 7.1 (EDGARD 07) HB L 8.2 (EDGARD 17) L 8.6 (EDGARD 14) L 8.2 (EDGARD 10) L 8.1 (EDGARD 07) HCT L 26.3 (EDGARD 17) L 27.2 (EDGARD 14) L 26.4 (EDGARD 10) L 25.3 (EDGARD 07) Plt 170 (EDGARD 18) 174 (EDGARD 17) 169 (EDGARD 16) 197 (EDGARD 14) Na 146 (EDGARD 19) 146 (EDGARD 18) 146 (EDGARD 17) 146 (EDGARD 16) K L 3.4 (EDGARD 19) 3.6 (EDGARD 18) L 3.4 (EDGARD 17) L 3.4 (EDGARD 16) Cl H 116 (EDGARD 19) H 117 (EDGARD 18) H 116 (EDGARD 17) H 116 (EDGARD 16) CO2 24 (EDGARD 19) 23 (EDGARD 18) 24 (EDGARD 17) 25 (EDGARD 16) BUN H 26 (EDGARD 19) H 25 (EDGARD 18) H 27 (EDGARD 17) H 30 (EDGARD 16) Cr H 1.10 (EDGARD 19) H 1.10 (EDGARD 18) H 1.10 (EDGARD 17) H 1.10 (EDGARD 16) Glu R 95 (EDGARD 19) 88 (EDGARD 18) 88 (EDGARD 17) 90 (EDGARD 16) Ca L 8.2 (EDGARD 19) L 8.2 (EDGARD 18) L 8.1 (EDGARD 17) L 8.0 (EDGARD 16) AST 11 (SEP 17) 14 (EDGARD 14) 14 (EDGARD 10) 11 (SEP 07) ALT L 8 (SEP 17) L 8 (EDGARD 14) L 7 (EDGARD 10) L 8 (SEP 07) ALK P 119 (SEP 17) 127 (EDGARD 14) 95 (EDGARD 10) 77 (SEP 07) T Bili 0.6 (SEP 17) 0.7 (EDGARD 14) 0.5 (EDGARD 10) 0.8 (SEP 07) PTN L 5.0 (SEP 17) L 5.0 (SEP 14) L 4.8 (SEP 10) L 5.4 (SEP 07) ALB L 2.2 (SEP 17) L 2.3 (EDGARD 14) L 2.6 (EDGARD 10) L 3.3 (SEP 07) *labs (PowerNote only) in insert template MICRO: [...] Added probiotic. improved. unlikely C diff -nausea- with daptomycin. Improved after stopping this medication Plan: 1. Continue IV vancomycin with PK dosing consultation and close monitoring of renal function. Anticipated stop date is 10/05/18. 2 Weekly Groshong catheter dressing changes. 3. Weekly CBC with differential, CMP, ESR, CRP 4. probiotic seems to be tolerating vancomycin well but is having some nausea. May need to try giving her some antiemetics about 30 minutes prior to her antibiotic doses. Additionally could try Phenergan instead of Zofran but I will defer to primary team I discussed with her today documented in this encounter Plan of Treatment Not on file documented as of this encounter Visit Diagnoses Not on filedocumented in this encounter Care Teams Administrative Nursing Supervisor Relationship Specialty Start Date End Date Juan José Kendall MD [address] [facility] [address] [place] [id number] PCP - General Family Medicine 12/25/22 Juan José Kendall MD [address] [facility] [address] [place] [id number] Referring Physician Family Medicine 12/25/22 documented as of this encounter
--- OUTSIDE RECORDS SUMMARY | 2024-03-11 09:18 | XMS_ITS | Encounter Summary ---
Author Organization [employer] Address [address] [place] [address] Care Team Providers Care Computer Bookkeeper Name Role Phone Juan José Kendall MD Primary Care Provider +- [phone] Juan José Kendall MD Unavailable [phone] Encounter Details Date Type Department Care Team (Late st Contact Info) Description 09/20/2018 Transcribed Document [facility] [place] Family Medicine [facility] [place] [address] Laurie Garcia MD [address] [place] [address] Social History Tobacco Use Types Packs/Day Years Used Date Smoking Tobacco: Never Assessed Comments Unknown Sex and Gender Information Value Date Recorded Sex Assigned at Not on file Legal Sex Female 2:23 PM CDT Gender Identity Not on file Sexual Orientation Not on file documented as of this encounter Miscellaneous Notes * Cerner Conversion Note - Laurie ProviderMD - 09/20/2018 4:26 PM CDT [facility] Inpatient Documentation Entered On: 09/20/2018 16:26 EDT Performed On: 09/20/2018 16:26 EDT by ALEX FREY RN WOCN Admission Date : Admit Date 09/08/2018 18:[address] : Diagnosis (10) Unspecified infectious disease Acute kidney failure, unspecified Essential (primary) hypertension Mixed hyperlipidemia Gastro-esophageal reflux disease without esophagitis Obstructive sleep apnea (adult) (pediatric) Morbid (severe) obesity due to excess calories Bacteremia Anemia, unspecified Acute embolism and thrombosis of unspecified vein Reason for WOCN Visit : Assessment, ongoing, Dressing change Admitting Diagnosis ST : Reason for Admission ARTHRITIS DUE TO OTHER BACTERIA, UNSPECIFIED JOINT ALEX FREY RN - 09/20/2018 16:26 EDT Wound & Pressure Ulcer WOCN Wound Pressure Ulcer Documentation : Sajnloase-Khabxr-Dbsm Abnormality: Knee Left Midline on 09/20/2018 10:30 by ALEX FREY RN I/W/A Type: Incision, closed I/W/A Dressing Status: Intact I/W/A Dressing Activity: Dressing changed I/W/A Wound Bed Description: Stapled I/W/A Wound Edge: Approximated I/W/A Surrounding Tissue: Intact I/W/A Photographed: Yes I/W/A Cleansing/Irrigation: Sterile saline I/W/A Dressing Type/Treatment: NPWT Negative Pressure Wound Therapy Activity: Dressing changed NPWT Device Used: S&N E Type of Foam/Gauze Removed: Black Foam, Contact layer Number of Black Foam Gauze Removed: 2 Number of Contact Layer Pieces Removed: 2 Type of Foam/Gauze Applied: Black Foam, Contact layer Number of Black Foam Gauze Applied: 2 Number of Contact Layer Pieces Applied: 2 NPWT Pressure: Continuous NPWT Pressure Settin Pressure Ulcer Assessment: Heel Left Posterior on 09/20/2018 10:30 by ALEX FREY RN Present on Adm to Hosp: Yes Dressing Status: Intact Dressing Activity: Dressing changed Wound Bed Description: Eschar (leathery black or brown) Bed Color(s): Brown Surrounding Tissue: [place] (Epithelialized) Drainage Amount: None Photographed: Yes Cleansing/Irrigation: Sterile saline Dressing Type/Treatment: Honey-based dressing Pressure Ulcer Assessment: Other: bilat medial upper thighs on 09/09/2018 12:01 by ALEX FREY RN Present on Adm to Hosp: Yes Stage: Stage 1 Device Related: Yes Dressing Status: Left open to air Wound Bed Description: Intact skin (red), non-blanchable Bed Color(s): Red Surrounding Tissue: Edematous Drainage Amount: None WOCN Ostomy Documentation : No ostomy assessments reported. ALEX FREY RN - 09/20/2018 16:26 EDT documented in this encounter Plan of Treatment Not on file documented as of this encounter Visit Diagnoses Not on filedocumented in this encounter Care Teams Computer Bookkeeper Relationship Specialty Start Date End Date Juan José Kendall MD [address] [place] [id number] PCP - General Family Medicine 12/25/22 Juan José Kendall MD [address] [place] [phone] Referring Physician Family Medicine 12/25/22 documented as of this encounter
--- OUTSIDE RECORDS SUMMARY | 2024-03-11 09:18 | XMS_ITS | Encounter Summary ---
Author Organization [employer] Address [address] [place] [address] Care Team Providers Care Orthopedic Dentist Name Role Phone Juan José Kendall MD Primary Care Provider + [phone] Juan José Kendall MD Unavailable [phone] Encounter Details Date Type Department Care Team (Late st Contact Info) Description 09/21/2018 Transcribed Document [facility] [place] [address] ProviderLaurie MD [address] [place] [address] Social History Tobacco Use Types Packs/Day Years Used Date Smoking Tobacco: Never Assessed Comments Unknown Sex and Gender Information Value Date Recorded Sex Assigned at Not on file Legal Sex Female 2:23 PM CDT Gender Identity Not on file Sexual Orientation Not on file documented as of this encounter Miscellaneous Notes * Cerner Conversion Note - Laurie Garcia MD - 09/21/2018 8:36 PM CDT Patient: TRUDI BLAIR Age: 63 [...] pain under control, no trouble w. urination. ???Has no nausea today ???No diarrhea ???Patient asked for Phenergan Review of Systems Constitutional: No fever, [...] inj 4 mg 2 mL, IV Push, [id number] pantoprazole EC 40 mg tab 40 mg [...] Water 250 mL 1,000 mg, IV Piggyback, [id number] Continuous: (0) PRN: (22) acetaminophen 325 mg [...] Stress incontinence Physical Examination VS/Measurements Vital Measurements 09/21/2018 20:00 EDT Systolic Blood Pressure 151 mmHg HI Diastolic Blood Pressure 68 mmHg Mean Arterial Pressure (MAP)-BMDI 88 Temperature, Fahrenheit 97.9 Deg F Clinical Temperature, C 36.6 Deg C Heart Rate Monitored 74 bpm Oxygen Saturation 93 % LOW General: Alert and oriented, No acute distress. [...] Review / Management Results review: All Results 09/21/2018 5:20 EDT Sodium Level 146 mmol/L Potassium Level 3.4 mmol/L LOW Chloride Level 116 mmol/L HI Carbon Dioxide Level 24 mmol/L Anion Gap 9 Glucose Level 95 mg/dL Blood Urea Nitrogen 26 mg/dL HI Creatinine Level 1.10 mg/dL HI eGFR >60 mL/min/1.73m2 eGFR NonAfrican 50 mL/min/1.73m2 LOW Bun/Creatinine 23.6 HI Calcium Level 8.2 mg/dL LOW 09/20/2018 5:46 EDT Sodium Level 146 mmol/L Potassium Level 3.6 mmol/L Chloride Level 117 mmol/L HI Carbon Dioxide Level 23 mmol/L Anion Gap 10 Glucose Level 88 mg/dL Blood Urea Nitrogen 25 mg/dL HI Creatinine Level 1.10 mg/dL HI eGFR >60 mL/min/1.73m2 eGFR NonAfrican 50 mL/min/1.73m2 LOW Bun/Creatinine 22.7 HI Calcium Level 8.2 mg/dL LOW Platelet Count 170 K/uL . Condition: Stable. Impression and Plan [...] by infectious disease -Pain control -DVT prophylaxis -Phenergan 12.5 mg every 6 hours when necessary -Close monitoring fluid and electrolytes -Fall risk precautions -Sleep apnea precautions -Stress ulcer prophylaxis. documented in this encounter Plan of Treatment Not on file documented as of this encounter Visit Diagnoses Not on filedocumented in this encounter Care Teams Orthopedic Dentist Relationship Specialty Start Date End Date Juan José Kendall MD [address] [place] [id number] PCP - General Family Medicine 12/25/22 Juan José Kendall MD [address] [place] [phone] Referring Physician Family Medicine 12/25/22 documented as of this encounter
--- OUTSIDE RECORDS SUMMARY | 2024-03-11 09:18 | XMS_ITS | Encounter Summary ---
Author Organization [employer] Address [address] [place] [address] Care Team Providers Care Supervisor Wet Room Name Role Phone Juan José Kendall MD Primary Care Provider + [phone] Juan José Kendall MD Unavailable [phone] Encounter Details Date Type Department Care Team (Late st Contact Info) Description 09/21/2018 Transcribed Document [facility] [place] [facility] [place] [address] ProviderLaurie MD [address] [place] [address] Social History Tobacco Use Types Packs/Day Years Used Date Smoking Tobacco: Never Assessed Comments Unknown Sex and Gender Information Value Date Recorded Sex Assigned at Not on file Legal Sex Female 2:23 PM CDT Gender Identity Not on file Sexual Orientation Not on file documented as of this encounter Miscellaneous Notes * Cerner Conversion Note - Historical ProviderMD - 09/21/2018 10:31 AM CDT Attempt to Treat, PT Entered On: 09/21/2018 10:31 EDT Performed On: 09/21/2018 10:31 EDT by NATALEE DALEY, PT Attempt to Treat Unable to Treat Due To : Patient Refusal Inability to Treat Comment : Pt just finished working with OT on ADL's and UE AROM. States she is just too nauseous to work with PT. NATALEE DALEY, PT - 09/21/2018 10:31 EDT documented in this encounter Plan of Treatment Not on file documented as of this encounter Visit Diagnoses Not on filedocumented in this encounter Care Teams Supervisor Wet Room Relationship Specialty Start Date End Date Juan José Kendall MD [address] [facility] [address] [place] [phone] PCP - General Family Medicine 12/25/22 Juan José Kendall MD [address] [facility] [address] [place] [phone] Referring Physician Family Medicine 12/25/22 documented as of this encounter
--- OUTSIDE RECORDS SUMMARY | 2024-03-11 09:18 | XMS_ITS | Encounter Summary ---
Author Organization [employer] Address [address] [place] [address] Care Team Providers Care Can Dragger Name Role Phone Juan José Kendall MD Primary Care Provider +- [phone] Juan José Kendall MD Unavailable [phone] Encounter Details Date Type Department Care Team (Late st Contact Info) Description 09/23/2018 Transcribed Document [facility] Family [place] [facility] [place] [address] ProviderLaurie MD [address] [place] [address] Social History Tobacco Use Types Packs/Day Years Used Date Smoking Tobacco: Never Assessed Comments Unknown Sex and Gender Information Value Date Recorded Sex Assigned at Not on file Legal Sex Female 2:23 PM CDT Gender Identity Not on file Sexual Orientation Not on file documented as of this encounter Miscellaneous Notes * Cerner Conversion Note - Laurie ProviderMD - 09/23/2018 11:10 AM CDT Patient: TRUDI BLAIR Age: 63 [...] repair. She was more recently admitted to [facility] x2 earlier this month on 08/16 [...] getting wound care. She was transferred to [facility] today for a higher level of care. [...] in place and doing okay.no new rashes ROS: As above Past Medical History: Arthritis Back pain GERD HLD NUVIA HTN Stress incontinence Past Surgical History: Left TKA, 2017 left patellar tendon repair, 06/2018 lumbar fusion hysterectomy right TKA right patellar tendon repair Family History: CAD HTN Cancer Social History: . lives in [place]. No tobacco, ETOH, or illicit drug use. Social & Psychosocial Habits Alcohol 06/23/2018 Alcohol Use History, Social Habits No Substance Abuse 06/23/2018 Recreational Drug Use History No Tobacco 06/23/2018 Smoking Status Never (less than 100 in l Smokeless Tobacco Status Never Objective: Vitals Signs (last 24 hrs) Last Charted Minimum Maximum Temp 98.0 (SEP 23 07:00) 97.8 (SEP 22 19:00) 98.1 (SEP 22 16:00) Apical HR 83 (SEP 23 08:51) 83 (SEP 23 08:51) 83 (SEP 23 08:51) Mon HR 83 (SEP 23 07:00) 75 (SEP 22 19:00) 95 (SEP 22 16:00) Resp Rate 16 (SEP 23 07:00) 16 (SEP 23 07:00) 18 (SEP 22 16:00) SBP H 145 (SEP 23 08:51) 114 (SEP 22 16:00) H 145 (SEP 23 07:00) DBP 71 (SEP 23 08:51) 60 (SEP 22 22:00) 71 (SEP 23 07:00) SpO2 100 (SEP 23 07:00) 96 (SEP 22 19:00) 100 (SEP 23 07:00) PE: General: patient is alert and [...] (EDGARD 10) L 25.3 (EDGARD 07) Plt 182 (EDGARD 20) 170 (EDGARD 18) 174 (EDGARD 17) 169 (EDGARD 16) Na 146 (EDGARD 21) 146 (EDGARD 20) 146 (EDGARD 19) 146 (EDGARD 18) K 3.6 (EDGARD 21) L 3.4 (EDGARD 20) L 3.4 (EDGARD 19) 3.6 (EDGARD 18) Cl H 115 (EDGARD 21) H 116 (EDGARD 20) H 116 (EDGARD 19) H 117 (EDGARD 18) CO2 25 (EDGARD 21) 24 (EDGARD 20) 24 (EDGARD 19) 23 (EDGARD 18) BUN 18 (EDGARD 21) 21 (EDGARD 20) H 26 (EDGARD 19) H 25 (EDGARD 18) Cr H 1.10 (EDGARD 21) H 1.10 (EDGARD 20) H 1.10 (EDGARD 19) H 1.10 (EDGARD 18) Glu R 83 (EDGARD 21) 87 (EDGARD 20) 95 (EDGARD 19) 88 (EDGARD 18) Ca L 8.2 (EDGARD 21) L 8.2 (EDGARD 20) L 8.2 (EDGARD 19) L 8.2 (EDGARD 18) AST 11 (EDGARD 17) 14 (EDGARD 14) 14 (EDGARD 10) 11 (EDGARD 07) ALT L 8 (SEP 17) L 8 (EDGARD 14) L 7 (EDGARD 10) L 8 (SEP 07) ALK P 119 (EDGARD 17) 127 (EDGARD 14) 95 (EDGARD 10) 77 (EDGARD 07) T Bili 0.6 (SEP 17) 0.7 (EDGARD 14) 0.5 (EDGARD 10) 0.8 (EDGARD 07) PTN L 5.0 (SEP 17) L 5.0 (EDGARD 14) L 4.8 (EDGARD 10) L 5.4 (EDGARD 07) ALB L 2.2 (SEP 17) L [...] differential, CMP, ESR, CRP 4. probiotic 5. check lipase level I discussed with her today Electronically signed by [facility], [facility] Conversion Diplomatic Officer Cerner at 07/24/2022 3:39 PM CDT documented in this encounter Plan of Treatment Not on file documented as of this encounter Visit Diagnoses Not on filedocumented in this encounter Care Teams Can Dragger Relationship Specialty Start Date End Date Juan José Kendall MD [address] [facility] [address] [place] [phone] PCP - General Family Medicine 12/25/22 Juan José Kendall MD [address] [facility] [address] [place] [phone] Referring Physician Family Medicine 12/25/22 documented as of this encounter
--- OUTSIDE RECORDS SUMMARY | 2024-03-11 09:18 | XMS_ITS | Encounter Summary ---
Author Organization [employer] Address [address] [place] [address] Care Team Providers Care Director Hris Name Role Phone Juan José Kendall MD Primary Care Provider +- [phone] Juan José Kendall MD Unavailable [phone] Encounter Details Date Type Department Care Team (Late st Contact Info) Description 09/23/2018 Transcribed Document [facility] [place] Family Medicine [facility] [place] [address] Laurie Garcia MD [address] [place] [address] Social History Tobacco Use Types Packs/Day Years Used Date Smoking Tobacco: Never Assessed Comments Unknown Sex and Gender Information Value Date Recorded Sex Assigned at Not on file Legal Sex Female 2:23 PM CDT Gender Identity Not on file Sexual Orientation Not on file documented as of this encounter Miscellaneous Notes * Cerner Conversion Note - Laurie ProviderMD - 09/23/2018 12:54 PM CDT [facility] Inpatient Documentation Entered On: 09/23/2018 12:56 EDT Performed On: 09/23/2018 12:54 EDT by ALEX FREY RN WOCN Admission [...] ARTHRITIS DUE TO OTHER BACTERIA, UNSPECIFIED JOINT WOCN Assessment Summary : pt seen for follow up eval to assess if wound can be d/c'd time on vac over inc was extended secondary to pt cont' with moderate amt of drainage pt has had no further drainage since thus vac d/c'd and DSD applied ALEX FREY RN - 09/23/2018 12:54 EDT Wound & Pressure Ulcer WOCN Wound Pressure Ulcer Documentation : Nczveeoba-Ysdixl-Dnsp Abnormality: Knee Left Midline on 09/23/2018 11:30 by ALEX FREY RN I/W/A Type: Incision, closed I/W/A Dressing Status: Intact I/W/A Dressing Activity: Dressing changed I/W/A Wound Bed Description: Stapled I/W/A Wound Edge: Attached, Approximated I/W/A Surrounding Tissue: Intact I/W/A Cleansing/Irrigation: Sterile saline I/W/A Dressing Type/Treatment: Island border dressing I/W/A Incision/Wound Comment: pt with no more drainage thus wound vac no longer required Pressure Ulcer Assessment: Heel Left Posterior on 09/20/2018 10:30 by ALEX FREY, LISBETH Present on Adm to Hosp: Yes Dressing Status: Intact Dressing Activity: Dressing changed Wound Bed Description: Eschar (leathery black or brown) Bed Color(s): Brown Surrounding Tissue: [place] (Epithelialized) Drainage Amount: None Photographed: Yes Cleansing/Irrigation: Sterile saline Dressing Type/Treatment: Honey-based dressing Pressure Ulcer Assessment: Other: bilat medial upper thighs on 09/09/2018 12:01 by ALEX FREY, LISBETH Present on Adm to Hosp: Yes Stage: Stage 1 Device Related: Yes Dressing Status: Left open to air Wound Bed Description: Intact skin (red), non-blanchable Bed Color(s): Red Surrounding Tissue: Edematous Drainage Amount: None WOCN Ostomy Documentation : No ostomy assessments reported. ALEX FREY RN - 09/23/2018 12:54 EDT documented in this encounter Plan of Treatment Not on file documented as of this encounter Visit Diagnoses Not on filedocumented in this encounter Care Teams Director Hris Relationship Specialty Start Date End Date Enoch, Juan José H, MD [address] [place] [phone] PCP - General Family Medicine 12/25/22 Juan José Kendall MD [address] [place] [phone] Referring Physician Family Medicine 12/25/22 documented as of this encounter
--- OUTSIDE RECORDS SUMMARY | 2024-03-11 09:18 | XMS_ITS | Encounter Summary ---
Author Organization [employer] Address [address] [place] [address] Care Team Providers Care Leadership Coach Name Role Phone Juan José Kendall MD Primary Care Provider +- [phone] Juan José Kendall MD Unavailable [phone] Encounter Details Date Type Department Care Team (Late st Contact Info) Description 09/22/2018 Transcribed Document [facility] [place] Family Medicine [facility] [place] [address] ProviderLaurie MD [address] [place] [address] Social History Tobacco Use Types Packs/Day Years Used Date Smoking Tobacco: Never Assessed Comments Unknown Sex and Gender Information Value Date Recorded Sex Assigned at Not on file Legal Sex Female 2:23 PM CDT Gender Identity Not on file Sexual Orientation Not on file documented as of this encounter Miscellaneous Notes * Cerner Conversion Note - Laurie ProviderMD - 09/22/2018 9:00 AM CDT Pain Assessment Entered On: 09/22/2018 10:34 EDT Performed On: 09/22/2018 9:31 EDT by FRANTZ BROWN, RN Intervention Information: acetaminophen Performed by FRANTZ BROWN, RN on 09/22/2018 08:31:00 EDT acetaminophen,500mg Oral Pain Assessment Pain Assessment : Follow-up assessment Pain Scale Goal : 3 Pain Scale Used : 0-10 Scale FRANTZ BROWN RN - 09/22/2018 10:34 EDT Pain Scale Intensity : 0 FRANTZ BROWN RN - 09/22/2018 10:34 EDT Image 4 - Images currently included in the form version of this document have not been included in the text rendition version of the form. documented in this encounter Plan of Treatment Not on file documented as of this encounter Visit Diagnoses Not on filedocumented in this encounter Care Teams Leadership Coach Relationship Specialty Start Date End Date Juan José Kendall MD [address] [facility] [address] [place] [address] PCP - General Family Medicine 12/25/22 Juan José Kendall MD [address] [facility] [address] [place] [address] Referring Physician Family Medicine 12/25/22 documented as of this encounter
--- OUTSIDE RECORDS SUMMARY | 2024-03-11 09:18 | XMS_ITS | Encounter Summary ---
Author Organization [employer] Address [address] [place] [address] Care Team Providers Care Patient Care Secretary Name Role Phone Juan José Kendall MD Primary Care Provider +- [phone] Juan José Kendall MD Unavailable [phone] Encounter Details Date Type Department Care Team (Late st Contact Info) Description 09/23/2018 Transcribed Document [facility] [place] Family Medicine [facility] [place] [address] ProviderLaurie MD [address] [place] [id number] Social History Tobacco Use Types Packs/Day Years Used Date Smoking Tobacco: Never Assessed Comments Unknown Sex and Gender Information Value Date Recorded Sex Assigned at Not on file Legal Sex Female 2:23 PM CDT Gender Identity Not on file Sexual Orientation Not on file documented as of this encounter Miscellaneous Notes * Cerner Conversion Note - Laurie ProviderMD - 09/23/2018 12:34 PM CDT Patient: TRUDI BLAIR Age: 63 [...] 139.5 kg DBW: 91.2 kg Labs: SEP 23 06:08 146 H 115 18 / 83 3.6 25 H 1.10 \ Allergies: biaxin I/O: 730 / x3 voids Estimated CrCl: 55-60 mL/min Vitals: Vitals Signs [...] (SEP 22 19:00) 100 (SEP 23 07:00) Cultures: 08/10 blood: MRSA 08/10 urine: Enterococcus 08/19 blood: Enterococcus (vanc S) 08/19 L leg wound: S. epi, MRSA Current antibiotics: Vancomycin 1000mg IV q24h (start date 09/14, 09/23 = day 10) Previous antibiotics: Ceftriaxone (08/30-09/02) Ertapenem (08/30-08/31) Daptmycin [...] mcg/mL drawn 15 hours after previous dose A/P: 1. Vancomycin 1000mg given yesterday afternoon. Random level 19.8 mcg/mL this am drawn 15 hours after dose. Hold dose today and recheck random level again in am. Assuming level has dropped appropriately, plan to resume vancomycin at 500mg IV q24h. Would recheck trough level on 09/26. 2. Monitor renal function closely. Some ongoing PILY attributed to sepsis from admission. BMP at least twice weekly on vancomycin. SCr improving, stable at 1.1 today. 3. Abx planned until 10/05 per ID. 4. Pharmacy will continue to follow. Thank you for the consultation, Bethany Mo PharmD Electronically signed by Aleks [facility] Conversion Assistant Professor Of History Cerner at 07/24/2022 3:52 PM CDT documented in this encounter Plan of Treatment Not on file documented as of this encounter Visit Diagnoses Not on filedocumented in this encounter Care Teams Patient Care Secretary Relationship Specialty Start Date End Date Juan José Kendall MD [address] [facility] [address] [place] [address] PCP - General Family Medicine 12/25/22 Juan José Kendall MD [address] [facility] [address] [place] [id number] Referring Physician Family Medicine 12/25/22 documented as of this encounter
--- OUTSIDE RECORDS SUMMARY | 2024-03-11 09:18 | XMS_ITS | Encounter Summary ---
Author Organization [employer] Address [address] [place] [address] Care Team Providers Care Airplane Inspector Name Role Phone Juan José Kendall MD Primary Care Provider + [phone] Juan José Kendall MD Unavailable [phone] Encounter Details Date Type Department Care Team (Late st Contact Info) Description 09/22/2018 Transcribed Document [facility] [place] Family [place] [facility] [place] [address] ProviderLaurie MD [address] [place] [address] Social History Tobacco Use Types Packs/Day Years Used Date Smoking Tobacco: Never Assessed Comments Unknown Sex and Gender Information Value Date Recorded Sex Assigned at Not on file Legal Sex Female 2:23 PM CDT Gender Identity Not on file Sexual Orientation Not on file documented as of this encounter Miscellaneous Notes * Cerner Conversion Note - Historical ProviderMD - 09/22/2018 8:30 AM CDT Attempt to Treat, PT Entered On: 09/22/2018 10:52 EDT Performed On: 09/22/2018 8:30 EDT by VELVET COOK PT Attempt to Treat Unable to Treat Due To : Acuity of Illness, Patient on hold Inability to Treat Comment : pt is nauseated per RN and getting meds. Will check back as time permits Notification : Discussed with VELVET Whitfield RN, PT - 09/22/2018 10:53 EDT documented in this encounter Plan of Treatment Not on file documented as of this encounter Visit Diagnoses Not on filedocumented in this encounter Care Teams Airplane Inspector Relationship Specialty Start Date End Date Juan José Kendall MD [address] [facility] [address] [place] [address] PCP - General Family Medicine 12/25/22 Juan José Kendall MD [facility] hospital[facility] [address] [place] [phone] Referring Physician Family Medicine 12/25/22 documented as of this encounter
--- OUTSIDE RECORDS SUMMARY | 2024-03-11 09:18 | XMS_ITS | Encounter Summary ---
Author Organization [employer] Address [address] [place] [address] Care Team Providers Care Predatory Animal Hunter Name Role Phone Juan José Kendall MD Primary Care Provider +- [phone] Juan José Kendall MD Unavailable [phone] Encounter Details Date Type Department Care Team (Late st Contact Info) Description 09/23/2018 Transcribed Document [facility] [place] Family Medicine [address] [place] [address] ProviderLaurie MD [address] [place] [address] Social History Tobacco Use Types Packs/Day Years Used Date Smoking Tobacco: Never Assessed Comments Unknown Sex and Gender Information Value Date Recorded Sex Assigned at Not on file Legal Sex Female 2:23 PM CDT Gender Identity Not on file Sexual Orientation Not on file documented as of this encounter Miscellaneous Notes * Cerner Conversion Note - Historical ProviderMD - 09/23/2018 7:22 PM CDT Height and Weight, Clinical Dosing Entered On: 09/23/2018 19:22 EDT Performed On: 09/23/2018 19:22 EDT by FRANTZ BROWN RN Height and Weight, Clinical Dosing Height Source : Chart Height Entry Format : Metric Height, Centimeters : 167.6 cm(Converted to: 5 ft 6 Inch, 65.98 Inch) Clinical Height : 167.6 cm Weight Source : Bed scale Weight Entry Format : [place] Clinical Dosing Weight : 130 kg Weight, Pounds : 286 lb Weight, Ounces : 0 oz Body Surface Area (BSA) : 2.33 m2 Body Mass Index : 46.3 kg/m2 (>HHI) [place] Body Weight : 59 kg FRANTZ BROWN, RN - 09/23/2018 19:22 EDT documented in this encounter Plan of Treatment Not on file documented as of this encounter Visit Diagnoses Not on filedocumented in this encounter Care Teams Predatory Animal Hunter Relationship Specialty Start Date End Date Juan José Kendall MD [address] [facility] [address] [place] [id number] PCP - General Family Medicine 12/25/22 Juan José Kendall MD [address] [place] [address] [address] [place] [phone] Referring Physician Family Medicine 12/25/22 documented as of this encounter
--- OUTSIDE RECORDS SUMMARY | 2024-03-11 09:18 | XMS_ITS | Encounter Summary ---
Author Organization [employer] Address [address] [place] [address] Care Team Providers Care Pavilion Cutter Name Role Phone Juan José Kendall MD Primary Care Provider +- [phone] Juan José Kendall MD Unavailable [phone] Encounter Details Date Type Department Care Team (Late st Contact Info) Description 09/20/2018 Transcribed Document [facility] [place] Family Medicine [facility] [place] [address] ProviderLaurie MD [address] [place] [id number] Social History Tobacco Use Types Packs/Day Years Used Date Smoking Tobacco: Never Assessed Comments Unknown Sex and Gender Information Value Date Recorded Sex Assigned at Not on file Legal Sex Female 2:23 PM CDT Gender Identity Not on file Sexual Orientation Not on file documented as of this encounter Miscellaneous Notes * Cerner Conversion Note - Laurie ProviderMD - 09/20/2018 9:00 PM CDT Pain Assessment Entered On: 09/21/2018 0:56 EDT Performed On: 09/20/2018 21:45 EDT by Mercedes Krishnan RN Intervention Information: acetaminophen Performed by Mercedes Krishnan RN on 09/20/2018 20:45:00 EDT acetaminophen,500mg Oral Pain Assessment Pain Assessment : Follow-up assessment Pain Scale Goal : 3 Pain Scale Used : 0-10 Scale Mercedes Krishnan RN - 09/21/2018 0:56 EDT Pain Scale Intensity : 2 Mercedes Krishnan RN - 09/21/2018 0:56 EDT Image 4 - Images currently included in the form version of this document have not been included in the text rendition version of the form. documented in this encounter Plan of Treatment Not on file documented as of this encounter Visit Diagnoses Not on filedocumented in this encounter Care Teams Pavilion Cutter Relationship Specialty Start [place] [address] [place] [address] [address] [place] [phone] PCP - General Family Medicine 12/25/22 Juan José Kendall MD [address] [place] [address] [address] [place] [phone] Referring Physician Family Medicine 12/25/22 documented as of this encounter
--- OUTSIDE RECORDS SUMMARY | 2024-03-11 09:18 | XMS_ITS | Encounter Summary ---
Author Organization [employer] Address [address] [place] [address] Care Team Providers Care Land Management Forester Name Role Phone Juan José Kendall MD Primary Care Provider +- [phone] Juan José Kendall MD Unavailable [phone] Encounter Details Date Type Department Care Team (Late st Contact Info) Description 09/23/2018 Transcribed Document [facility] [place] [address] [place] [address] ProviderLaurie MD [address] [place] [address] Social History Tobacco Use Types Packs/Day Years Used Date Smoking Tobacco: Never Assessed Comments Unknown Sex and Gender Information Value Date Recorded Sex Assigned at Not on file Legal Sex Female 2:23 PM CDT Gender Identity Not on file Sexual Orientation Not on file documented as of this encounter Miscellaneous Notes * Cerner Conversion Note - Historical ProviderMD - 09/23/2018 2:13 PM CDT Height and Weight, Routine Entered On: 09/23/2018 17:47 EDT Performed On: 09/23/2018 17:47 EDT by FRANTZ BROWN RN Height and Weight, Routine Routine Weight Source : Bed scale Routine Weight Entry Format : [place] Routine Weight, Pounds : 286 lb Routine Weight Calculation : 130 kg Height Source : Chart Height Entry Format : Metric Clinical Height : 167.6 cm Height, Centimeters : 167.6 cm Body Surface Area (BSA), Routine : 2.33 m2 Body Mass Index (BMI), Routine : 46.28 kg/m2 FRANTZ BROWN RN - 09/23/2018 17:47 EDT Electronically signed by Aleks [facility] Conversion Skiver Machine Operator Cerner at 07/24/2022 3:50 PM CDT documented in this encounter Plan of Treatment Not on file documented as of this encounter Visit Diagnoses Not on filedocumented in this encounter Care Teams Land Management Forester Relationship Specialty Start Date End Date Juan José Kendall MD [address] [place] [facility] [address] [place] [phone] PCP - General Family Medicine 12/25/22 Juan José Kendall MD [address] [place] [facility] [address] [place] [phone] Referring Physician Family Medicine 12/25/22 documented as of this encounter
--- OUTSIDE RECORDS SUMMARY | 2024-03-11 09:18 | XMS_ITS | Encounter Summary ---
Author Organization [employer] Address [address] [facility] [place] [address] Care Team Providers Care Face Boss Name Role Phone Juan José Kendall MD Primary Care Provider +- [phone] Juan José Kendall MD Unavailable [phone] Encounter Details Date Type Department Care Team (Late st Contact Info) Description 09/23/2018 Transcribed Document [facility] [place] [facility] [place] [address] ProviderLaurie MD [address] [place] [address] Social History Tobacco Use Types Packs/Day Years Used Date Smoking Tobacco: Never Assessed Comments Unknown Sex and Gender Information Value Date Recorded Sex Assigned at Not on file Legal Sex Female 2:23 PM CDT Gender Identity Not on file Sexual Orientation Not on file documented as of this encounter Miscellaneous Notes * Cerner Conversion Note - Historical ProviderMD - 09/23/2018 3:00 PM CDT Pain Assessment Entered On: 09/23/2018 16:54 EDT Performed On: 09/23/2018 15:09 EDT by FRANTZ BROWN, RN Intervention Information: acetaminophen Performed by FRANTZ BROWN, RN on 09/23/2018 14:09:00 EDT acetaminophen,500mg Oral Pain Assessment Pain Assessment : Follow-up assessment Pain Scale Goal : 3 Pain Scale Used : 0-10 Scale FRANTZ BROWN RN - 09/23/2018 16:54 EDT Pain Scale Intensity : 0 FRANTZ BROWN RN - 09/23/2018 16:54 EDT Image 4 - Images currently included in the form version of this document have not been included in the text rendition version of the form. documented in this encounter Plan of Treatment Not on file documented as of this encounter Visit Diagnoses Not on filedocumented in this encounter Care Teams Face Boss Relationship Specialty Start Date End Date Juan José Kendall MD [address] [facility] [address] [place] [address] PCP - General Family Medicine 12/25/22 Juan José Kendall MD [address] [facility] [address] [place] [phone] Referring Physician Family Medicine 12/25/22 documented as of this encounter
--- OUTSIDE RECORDS SUMMARY | 2024-03-11 09:18 | XMS_ITS | Encounter Summary ---
Author Organization [employer] Address [address] [place] [address] Care Team Providers Care Talent Scout Name Role Phone Juan José Kendall MD Primary Care Provider +- [phone] Juan José Kendall MD Unavailable [phone] Encounter Details Date Type Department Care Team (Late st Contact Info) Description 09/21/2018 Transcribed Document [facility] [place] [facility] [place] [address] ProviderLaurie MD [address] [place] [address] Social History Tobacco Use Types Packs/Day Years Used Date Smoking Tobacco: Never Assessed Comments Unknown Sex and Gender Information Value Date Recorded Sex Assigned at Not on file Legal Sex Female 2:23 PM CDT Gender Identity Not on file Sexual Orientation Not on file documented as of this encounter Miscellaneous Notes * Cerner Conversion Note - Historical ProviderMD - 09/21/2018 2:00 AM CDT Senior Compensation Consultant Details Entered On: 09/21/2018 2:39 EDT Performed On: 09/21/2018 2:00 EDT by Mercedes Krishnan RN Order Details Transport Mode Order Detail : Bed (including specialty) Isolation Precautions Order Detail : Standard Precautions Order Detail : 0 IV Order Detail : 0 Oxygen Order Detail : 0 Nurse Collect Order Detail : 1 Lift/Transfer : Maximal assist Central Line Order Detail : Yes Room Service : Appropriate Arterial Line : No Mercedes Krishnan RN - 09/21/2018 2:38 EDT Electronically signed by Aleks [facility] Conversion Word Processing Machine Operator Cerner at 07/24/2022 3:49 PM CDT documented in this encounter Plan of Treatment Not on file documented as of this encounter Visit Diagnoses Not on filedocumented in this encounter Care Teams Talent Scout Relationship Specialty Start Date End Date Juan José Kendall MD [address] [facility] [address] [place] [phone] PCP - General Family Medicine 12/25/22 Juan José Kendall MD [address] [facility] [address] [place] [phone] Referring Physician Family Medicine 12/25/22 documented as of this encounter
--- OUTSIDE RECORDS SUMMARY | 2024-03-11 09:18 | XMS_ITS | Encounter Summary ---
Author Organization [employer] Address [address] [place] [address] Care Team Providers Care Profile Saw Operator Name Role Phone Juan José Kendall MD Primary Care Provider + [phone] Juan José Kendall MD Unavailable [phone] Encounter Details Date Type Department Care Team (Late st Contact Info) Description 09/23/2018 Transcribed Document [facility] [place] Family Medicine [facility] [place] [address] ProviderLaurie MD [address] [place] [address] Social History Tobacco Use Types Packs/Day Years Used Date Smoking Tobacco: Never Assessed Comments Unknown Sex and Gender Information Value Date Recorded Sex Assigned at Not on file Legal Sex Female 2:23 PM CDT Gender Identity Not on file Sexual Orientation Not on file documented as of this encounter Miscellaneous Notes * Cerner Conversion Note - Historical ProviderMD - 09/23/2018 6:00 PM CDT Patch Check Entered On: 09/23/2018 16:53 EDT Performed On: 09/23/2018 18:00 EDT by FRANTZ BROWN, RN Patch Check Patch Check Result : Yes Patch Check - Type of Patch : scopolamine (Transderm-Scop) FRANTZ BROWN, RN - 09/23/2018 16:53 EDT documented in this encounter Plan of Treatment Not on file documented as of this encounter Visit Diagnoses Not on filedocumented in this encounter Care Teams Profile Saw Operator Relationship Specialty Start Date End Date Enoch, Juan José H, MD [address] [place] [phone] PCP - General Family Medicine 12/25/22 Juan José Kenadll MD [address] [place] [phone] Referring Physician Family Medicine 12/25/22 documented as of this encounter
--- OUTSIDE RECORDS SUMMARY | 2024-03-11 09:18 | XMS_ITS | Encounter Summary ---
Author Organization [employer] Address [address] [place] [address] Care Team Providers Care Mechanical Design Technician Name Role Phone Juan José Kendall MD Primary Care Provider +- [phone] Juan José Kendall MD Unavailable [phone] Encounter Details Date Type Department Care Team (Late st Contact Info) Description 09/19/2018 Transcribed Document [facility] [place] [address] ProviderLaurie MD [address] [place] [address] Social History Tobacco Use Types Packs/Day Years Used Date Smoking Tobacco: Never Assessed Comments Unknown Sex and Gender Information Value Date Recorded Sex Assigned at Not on file Legal Sex Female 2:23 PM CDT Gender Identity Not on file Sexual Orientation Not on file documented as of this encounter Miscellaneous Notes * Cerner Conversion Note - Historical ProviderMD - 09/19/2018 3:00 PM CDT Pain Assessment Entered On: 09/19/2018 18:31 EDT Performed On: 09/19/2018 15:15 EDT by ENOCH PERDOMO LPN Intervention Information: acetaminophen Performed by ENOCH PERDOMO LPN on 09/19/2018 14:15:00 EDT acetaminophen,500mg Oral Pain Assessment Pain Assessment : Follow-up assessment Pain Scale Goal : 3 Pain Scale Used : 0-10 Scale Location : Knee, left ENOCH PERDOMO LPN - 09/19/2018 18:30 EDT Pain Scale Intensity : 0 ENOCH PERDOMO LPN - 09/19/2018 18:30 EDT Image 4 - Images currently included in the form version of this document have not been included in the text rendition version of the form. documented in this encounter Plan of Treatment Not on file documented as of this encounter Visit Diagnoses Not on filedocumented in this encounter Care Teams Mechanical Design Technician Relationship Specialty Start Date End Date Juan José Kendall MD [address] [facility] [address] [place] [address] PCP - General Family Medicine 12/25/22 [place] [address] [place] [address] [address] [place] [address] Referring Physician Family Medicine 12/25/22 documented as of this encounter
--- OUTSIDE RECORDS SUMMARY | 2024-03-11 09:18 | XMS_ITS | Encounter Summary ---
Author Organization [employer] Address [address] [place] [address] Care Team Providers Care Rn Surgical Pcu Name Role Phone Juan José Kendall MD Primary Care Provider + [phone] Juan José Kendall MD Unavailable [phone] Encounter Details Date Type Department Care Team (Late st Contact Info) Description 09/20/2018 Transcribed Document [facility] [place] [place] [address] ProviderLaurie MD [address] [place] [address] Social History Tobacco Use Types Packs/Day Years Used Date Smoking Tobacco: Never Assessed Comments Unknown Sex and Gender Information Value Date Recorded Sex Assigned at Not on file Legal Sex Female 2:23 PM CDT Gender Identity Not on file Sexual Orientation Not on file documented as of this encounter Miscellaneous Notes * Cerner Conversion Note - Laurie Garcia MD - 09/20/2018 8:43 PM CDT Patient: TRUDI BLAIR Age: 63 [...] pain under control, no trouble w. urination. ???Slight diarrhea today ???Slight nausea today Review of Systems Constitutional: No fever, [...] Reaction Biaxin Acid reflux Current medications: Medications (35) Active Scheduled: (14) acetaminophen 500 mg tab [...] inj 4 mg 2 mL, IV Push, [id number] pantoprazole EC 40 mg tab 40 mg [...] Water 250 mL 1,000 mg, IV Piggyback, [id number] Continuous: (0) PRN: (21) acetaminophen 325 mg [...] Stress incontinence Physical Examination VS/Measurements Vital Measurements 09/20/2018 15:30 EDT Systolic Blood Pressure 146 mmHg HI Diastolic Blood Pressure 66 mmHg Mean Arterial Pressure (MAP)-BMDI 86 Temperature Source Oral Temperature Mode Fahrenheit Temperature, Fahrenheit 98.4 Deg F Clinical Temperature, C 36.9 Deg C Heart Rate Monitored 79 bpm [...] Review / Management Results review: All Results 09/20/2018 5:46 EDT Sodium Level 146 mmol/L Potassium Level 3.6 mmol/L Chloride Level 117 mmol/L HI Carbon Dioxide Level 23 mmol/L Anion Gap 10 Glucose Level 88 mg/dL Blood Urea Nitrogen 25 mg/dL HI Creatinine Level 1.10 mg/dL HI eGFR >60 mL/min/1.73m2 eGFR NonAfrican 50 mL/min/1.73m2 LOW Bun/Creatinine 22.7 HI Calcium Level 8.2 mg/dL LOW 09/19/2018 5:26 EDT Sodium Level 146 mmol/L Potassium Level 3.4 mmol/L LOW Chloride Level 116 mmol/L HI Carbon Dioxide Level 24 mmol/L Anion Gap 9 Glucose Level 88 mg/dL Blood Urea Nitrogen 27 mg/dL HI Creatinine Level 1.10 mg/dL HI eGFR >60 mL/min/1.73m2 eGFR NonAfrican 50 mL/min/1.73m2 LOW Bun/Creatinine 24.5 HI Calcium Level 8.1 mg/dL LOW Protein Total 5.0 Gram/dL LOW Albumin Level 2.2 Gram/dL LOW Globulin 2.8 Gram/dL A/G Ratio 0.8 LOW Bilirubin Total 0.6 mg/dL Alk Phos 119 Units/Liter AST 11 Units/Liter ALT 8 Units/Liter LOW Magnesium Level 2.0 mg/dL Phosphorus 2.8 mg/dL CRP 2.0 mg/dL HI WBC 5.7 K/uL RBC 2.77 Million/uL LOW Hgb 8.2 g/dL LOW Hct 26.3 % LOW MCV 94.9 fL HI MCH 29.6 pg MCHC 31.2 Gram/dL LOW Platelet Count 174 K/uL MPV 12.0 fL RDW 18.2 % HI Neut % 63.0 % Neut # 3.61 K/uL Lymph % 19.9 % Lymph # 1.14 x10(3)/uL Burnet % 10.3 % HI Burnet # 0.59 K/uL Eos % 5.8 % Eos # 0.33 x10(3)/uL Baso % 0.7 % Baso # 0.04 x10(3)/uL Sed Rate Auto 9 mm/Hr Slide Review No IG# 0.02 x10(3)/uL IG% 0.30 % Prealbumin 13.1 mg/dL LOW . Condition: Stable. Impression and [...] blood glucose, and urine output. -Pain control -Continue on IV antibiotics as recommended by infectious disease -DVT prophylaxis -Close monitoring fluid and electrolytes -Scheduled and when necessary nebs -For risk precautions -Sleep apnea precautions -Stress ulcer prophylaxis. documented in this encounter Plan of Treatment Not on file documented as of this encounter Visit Diagnoses Not on filedocumented in this encounter Care Teams Rn Surgical Pcu Relationship Specialty Start Date End Date Juan José Kendall MD [address] [facility] [address] [place] [address] PCP - General Family Medicine 12/25/22 Juan José Kendall MD [facility] [facility] [address] [place] [address] Referring Physician Family Medicine 12/25/22 documented as of this encounter
--- OUTSIDE RECORDS SUMMARY | 2024-03-11 09:18 | XMS_ITS | Encounter Summary ---
Author Organization [employer] Address [address] [place] [address] Care Team Providers Care Poke In Name Role Phone Juan José Kendall MD Primary Care Provider +- [phone] Juan José Kendall MD Unavailable [phone] Encounter Details Date Type Department Care Team (Late st Contact Info) Description 09/19/2018 Transcribed Document [facility] [place] [facility] [place] [address] ProviderLaurie MD [address] [place] [address] Social History Tobacco Use Types Packs/Day Years Used Date Smoking Tobacco: Never Assessed Comments Unknown Sex and Gender Information Value Date Recorded Sex Assigned at Not on file Legal Sex Female 2:23 PM CDT Gender Identity Not on file Sexual Orientation Not on file documented as of this encounter Miscellaneous Notes * Cerner Conversion Note - Historical ProviderMD - 09/19/2018 6:19 PM CDT Patient: TRUDI BLAIR Age: 63 [...] repair. She was more recently admitted to [facility] x2 earlier this month on [...] getting wound care. She was transferred to [facility] [place] [facility] today for a higher [...] been changed since I last saw her. ROS: As above Past Medical History: Arthritis Back pain GERD HLD NUVIA HTN Stress incontinence Past Surgical History: Left TKA, 2017 left patellar tendon repair, 06/2018 lumbar fusion hysterectomy right TKA right patellar tendon repair Family History: CAD HTN Cancer Social History: . lives in [place]. No tobacco, ETOH, or illicit drug use. Social & Psychosocial Habits Alcohol 06/23/2018 Alcohol Use History, Social Habits No Substance Abuse 06/23/2018 Recreational Drug Use History No Tobacco 06/23/2018 Smoking Status Never (less than 100 in l Smokeless Tobacco Status Never Objective: Vitals Signs (last 24 hrs) Last Charted Minimum Maximum Temp 98.2 (SEP 19 15:00) 97.9 (SEP 18 23:00) 98.1 (SEP 18:00) Apical HR 79 (SEP 19 09:16) 79 (SEP 19:16) 79 (SEP 19:16) Mon HR 74 (SEP 19 15:00) 74 (SEP 19 15:00) 81 (SEP 18 19:00) Resp Rate 16 (SEP 19 15:00) 16 (SEP 19 15:00) 18 (SEP 18 19:00) SBP H 148 (SEP 19 15:00) 136 (SEP 16 23:00) H 148 (SEP 19 15:00) DBP 74 (SEP 19 15:00) L 58 (SEP 18 23:00) 74 (SEP 19 15:00) MAP 76 (SEP 18 23:00) 76 (EDGARD 16 23:00) 76 (EDGARD 16 23:00) SpO2 98 (EDGARD 17 15:00) L 91 (EDGARD 16 19:00) 98 (EDGARD 17 15:00) PE: General: patient is alert and in [...] (EDGARD 10) L 25.3 (EDGARD 07) Plt 174 (EDGARD 17) 169 (EDGARD 16) 197 (EDGARD 14) 235 (EDGARD 12) Na 146 (EDGARD 17) 146 (EDGARD 16) H 147 (EDGARD 15) 145 (EDGARD 14) K L 3.4 (EDGARD 17) L 3.4 (EDGARD 16) 3.5 (EDGARD 15) L 3.4 (EDGARD 14) Cl H 116 (EDGARD 17) H 116 (EDGARD 16) H 116 (EDGARD 15) H 114 (EDGARD 14) CO2 24 (EDGARD 17) 25 (EDGARD 16) 25 (EDGARD 15) 25 (EDGARD 14) BUN H 27 (EDGARD 17) H 30 (EDGARD 16) H 35 (EDGARD 15) H 39 (EDGARD 14) Cr H 1.10 (EDGARD 17) H 1.10 (EDGARD 16) H 1.20 (EDGARD 15) H 1.20 (EDGARD 14) Glu R 88 (EDGARD 17) 90 (EDGARD 16) 97 (EDGARD 15) 95 (EDGARD 14) Ca L 8.1 (EDGARD 17) L 8.0 (SEP 16) L 8.1 (SEP 15) L 8.1 (SEP 14) AST 11 (SEP 17) 14 (EDGARD 14) 14 (EDGARD 10) 11 (SEP 07) ALT L 8 (SEP 17) L 8 (EDGARD 14) L 7 (EDGARD 10) L 8 (SEP 07) ALK P 119 (SEP 17) 127 (EDGARD 14) 95 (EDGARD 10) 77 (SEP 07) T Bili 0.6 (SEP 17) 0.7 (SEP 14) 0.5 (SEP 10) 0.8 (SEP 07) PTN L 5.0 (SEP 19) L 5.0 (SEP 14) L 4.8 (SEP 10) L 5.4 (SEP 09) ALB L 2.2 (SEP 19) L 2.3 (SEP 14) L 2.6 (SEP 10) L 3.3 (SEP 09) *labs (PowerNote only) in insert template MICRO: [...] CBC with differential, CMP, ESR, CRP 4. Could switch the patient to OPAT through [facility] when she is discharged from LTAC/rehabilitation facility. 5. probiotic seems to be tolerating vancomycin well and renal function continues to improve. I discussed with her today documented in this encounter Plan of Treatment Not on file documented as of this encounter Visit Diagnoses Not on filedocumented in this encounter Care Teams Poke In Relationship Specialty Start Date End Date Juan José Kendall MD [address] [facility] [address] [place] [id number] PCP - General Family Medicine 12/25/22 Juan José Kendall MD [address] [facility] [address] [place] [phone] Referring Physician Family Medicine 12/25/22 documented as of this encounter
--- OUTSIDE RECORDS SUMMARY | 2024-03-11 09:18 | XMS_ITS | Encounter Summary ---
Author Organization [employer] Address [address] [place] [address] Care Team Providers Care Hvac Estimator Name Role Phone Juan José Kendall MD Primary Care Provider +- [phone] Juan José Kendall MD Unavailable [phone] Encounter Details Date Type Department Care Team (Late st Contact Info) Description 09/19/2018 Transcribed Document [facility] [place] [place] Family Medicine [facility] [place] [address] ProviderLaurie MD [address] [place] [address] Social History Tobacco Use Types Packs/Day Years Used Date Smoking Tobacco: Never Assessed Comments Unknown Sex and Gender Information Value Date Recorded Sex Assigned at Not on file Legal Sex Female 2:23 PM CDT Gender Identity Not on file Sexual Orientation Not on file documented as of this encounter Miscellaneous Notes * Cerner Conversion Note - Historical ProviderMD - 09/19/2018 2:00 AM CDT Firer Locomotive Crane Details Entered On: 09/19/2018 2:07 EDT Performed On: 09/19/2018 2:00 EDT by Mercedes Krishnan RN Order [...] Line : No Mercedes Krishnan RN - 09/19/2018 2:07 EDT Electronically signed by Aleks [facility] Conversion Programming Internship Cerner at 07/24/2022 3:32 PM CDT documented in this encounter Plan of Treatment Not on file documented as of this encounter Visit Diagnoses Not on filedocumented in this encounter Care Teams Hvac Estimator Relationship Specialty Start Date End Date Juan José Kendall MD [address] [facility] [address] [place] [phone] PCP - General Family Medicine 12/25/22 Juan José Kendall MD [address] [facility] [address] [place] [phone] Referring Physician Family Medicine 12/25/22 documented as of this encounter
--- OUTSIDE RECORDS SUMMARY | 2024-03-11 09:18 | XMS_ITS | Encounter Summary ---
Author Organization [employer] Address [address] [place] [address] Care Team Providers Care Customer Service Trainer Name Role Phone Juan José Kendall MD Primary Care Provider + [phone] Juan José Kendall MD Unavailable [phone] Encounter Details Date Type Department Care Team (Late st Contact Info) Description 09/21/2018 Transcribed Document [facility] [place] Family Medicine [address] [place] [address] ProviderLuarie MD [address] [place] [address] Social History Tobacco Use Types Packs/Day Years Used Date Smoking Tobacco: Never Assessed Comments Unknown Sex and Gender Information Value Date Recorded Sex Assigned at Not on file Legal Sex Female 2:23 PM CDT Gender Identity Not on file Sexual Orientation Not on file documented as of this encounter Miscellaneous Notes * Cerner Conversion Note - Laurie ProviderMD - 09/21/2018 8:52 AM CDT Interdisciplinary Rounds Entered On: 09/21/2018 8:53 EDT Performed On: 09/21/2018 8:52 EDT by Jennifer Mai Dietitian Interdisciplinary Rounds Interdisciplinary Rounds Participants : FernandaitiNery Joseph Soakers Supervisor - 09/21/2018 13:08 EDT Notes to Care Team : Regular diet + Ensure BID, Simón BID 25% avg x 3 meals 100% x 4 supps LBM 09/20 Jennifer Mai Dietitian - 09/21/2018 8:52 EDT documented in this encounter Plan of Treatment Not on file documented as of this encounter Visit Diagnoses Not on filedocumented in this encounter Care Teams Customer Service Trainer Relationship Specialty Start Date End Date Juan José Kendall MD [address] [facility] [address] [place] [address] PCP - General Family Medicine 12/25/22 Juan José Kendall MD [address] [facility] [address] [place] [address] Referring Physician Family Medicine 12/25/22 documented as of this encounter
--- OUTSIDE RECORDS SUMMARY | 2024-03-11 09:18 | XMS_ITS | Encounter Summary ---
Author Organization [employer] Address [address] [place] [address] Care Team Providers Care Member Certification Manager Name Role Phone Juan José Kendall MD Primary Care Provider + [phone] Juan José Kendall MD Unavailable [phone] Encounter Details Date Type Department Care Team (Late st Contact Info) Description 09/22/2018 Transcribed Document [facility] [place] Family Medicine [address] [place] [address] ProviderLaurie MD [address] [place] [address] Social History Tobacco Use Types Packs/Day Years Used Date Smoking Tobacco: Never Assessed Comments Unknown Sex and Gender Information Value Date Recorded Sex Assigned at Not on file Legal Sex Female 2:23 PM CDT Gender Identity Not on file Sexual Orientation Not on file documented as of this encounter Miscellaneous Notes * Cerner Conversion Note - Historical ProviderMD - 09/22/2018 5:00 AM CDT Chart Check - Review Order Profile Entered On: 09/22/2018 5:36 EDT Performed On: 09/22/2018 5:00 EDT by Mercedes Krishnan RN Chart Check All Active Orders Reviewed : Yes Mercedes Krishnan RN - 09/22/2018 5:36 EDT documented in this encounter Plan of Treatment Not on file documented as of this encounter Visit Diagnoses Not on filedocumented in this encounter Care Teams Member Certification Manager Relationship Specialty Start Date End Date Juan José Kendall MD [address] [place], [place] [address] PCP - General Family Medicine 12/25/22 Juan José Kendall MD [address] [place] [phone] Referring Physician Family Medicine 12/25/22 documented as of this encounter
--- OUTSIDE RECORDS SUMMARY | 2024-03-11 09:18 | XMS_ITS | Encounter Summary ---
Author Organization [employer] Address [address] [place] [address] Care Team Providers Care Manager Social Name Role Phone Juan José Kendall MD Primary Care Provider + [phone] Juan José Kendall MD Unavailable [phone] Encounter Details Date Type Department Care Team (Late st Contact Info) Description 09/19/2018 Transcribed Document [facility] [place] [facility] [place] [address] ProviderLaurie MD [address] [place] [address] Social History Tobacco Use Types Packs/Day Years Used Date Smoking Tobacco: Never Assessed Comments Unknown Sex and Gender Information Value Date Recorded Sex Assigned at Not on file Legal Sex Female 2:23 PM CDT Gender Identity Not on file Sexual Orientation Not on file documented as of this encounter Miscellaneous Notes * Cerner Conversion Note - Historical ProviderMD - 09/19/2018 5:00 AM CDT Chart Check - Review Order Profile Entered On: 09/19/2018 6:45 EDT Performed On: 09/19/2018 5:00 EDT by Mercedes Krishnan RN Chart Check All Active Orders Reviewed : Yes Mercedes Krishnan RN - 09/19/2018 6:45 EDT documented in this encounter Plan of Treatment Not on file documented as of this encounter Visit Diagnoses Not on filedocumented in this encounter Care Teams Manager Social Relationship Specialty Start Date End Date Juan José Kendall MD [address] [place], [place] [address] PCP - General Family Medicine 12/25/22 Juan José Kendall MD [address] [place] [phone] Referring Physician Family Medicine 12/25/22 documented as of this encounter
--- OUTSIDE RECORDS SUMMARY | 2024-03-11 09:18 | XMS_ITS | Encounter Summary ---
Author Organization [employer] Address [address] [place] [address] Care Team Providers Care Uc Architect Name Role Phone Juan José Kendall MD Primary Care Provider + [phone] Juan José Kendall MD Unavailable [phone] Encounter Details Date Type Department Care Team (Late st Contact Info) Description 09/22/2018 Transcribed Document [facility] [place] Family Medicine [address] [place] [address] ProviderLaurie MD [address] [place] [address] Social History Tobacco Use Types Packs/Day Years Used Date Smoking Tobacco: Never Assessed Comments Unknown Sex and Gender Information Value Date Recorded Sex Assigned at Not on file Legal Sex Female 2:23 PM CDT Gender Identity Not on file Sexual Orientation Not on file documented as of this encounter Miscellaneous Notes * Cerner Conversion Note - Historical ProviderMD - 09/22/2018 5:00 PM CDT Chart Check - Review Order Profile Entered On: 09/22/2018 15:40 EDT Performed On: 09/22/2018 17:00 EDT by FRANTZ BROWN RN Chart Check Powerplans Initiated/Discontinued as Appropriate : Yes All Active Orders Reviewed : Yes FRANTZ BROWN, RN - 09/22/2018 15:40 EDT documented in this encounter Plan of Treatment Not on file documented as of this encounter Visit Diagnoses Not on filedocumented in this encounter Care Teams Uc Architect Relationship Specialty Start Date End Date Juan José Kendall MD [address] [place] [phone] PCP - General Family Medicine 12/25/22 Juan José Kendall MD [address] [place] [phone] Referring Physician Family Medicine 12/25/22 documented as of this encounter
--- OUTSIDE RECORDS SUMMARY | 2024-03-11 09:18 | XMS_ITS | Encounter Summary ---
Author Organization [employer] Address [address] [place] [address] Care Team Providers Care Shot Core Drill Operator Helper Name Role Phone Juan José Kendall MD Primary Care Provider +- [phone] Juan José Kendall MD Unavailable [phone] Encounter Details Date Type Department Care Team (Late st Contact Info) Description 09/21/2018 Transcribed Document [facility] [place] [place] Family [place] [address] ProviderLaurie MD [address] [place] [address] Social History Tobacco Use Types Packs/Day Years Used Date Smoking Tobacco: Never Assessed Comments Unknown Sex and Gender Information Value Date Recorded Sex Assigned at Not on file Legal Sex Female 2:23 PM CDT Gender Identity Not on file Sexual Orientation Not on file documented as of this encounter Miscellaneous Notes * Cerner Conversion Note - Laurie ProviderMD - 09/21/2018 9:00 PM CDT Pain Assessment Entered On: 09/22/2018 2:32 EDT Performed On: 09/21/2018 21:15 EDT by Mercedes Krishnan RN Intervention Information: acetaminophen Performed by Mercedes Krishnan RN on 09/21/2018 20:15:00 EDT acetaminophen,500mg Oral Pain Assessment Pain Assessment : Follow-up assessment Pain Scale Goal : 3 Pain Scale Used : 0-10 Scale Mrecedes Krishnan RN - 09/22/2018 2:32 EDT Pain Scale Intensity : 2 Mercedes Krihsnan RN - 09/22/2018 2:32 EDT Image 4 - Images currently included in the form version of this document have not been included in the text rendition version of the form. documented in this encounter Plan of Treatment Not on file documented as of this encounter Visit Diagnoses Not on filedocumented in this encounter Care Teams Shot Core Drill Operator Helper Relationship Specialty Start [place] [address] [place] [address] [address] [place] [phone] PCP - General Family Medicine 12/25/22 Juan José Kendall MD [address] [place] [address] [address] [place] [phone] Referring Physician Family Medicine 12/25/22 documented as of this encounter
--- OUTSIDE RECORDS SUMMARY | 2024-03-11 09:18 | XMS_ITS | Encounter Summary ---
Author Organization [employer] Address [address] [place] [address] Care Team Providers Care Mailing Machine Operator Name Role Phone Juan José Kendall MD Primary Care Provider + [phone] Juan José Kendall MD Unavailable [phone] Encounter Details Date Type Department Care Team (Late st Contact Info) Description 09/18/2018 Transcribed Document [facility] [place] [address] [place] [address] ProviderLaurie MD [address] [place] [address] Social History Tobacco Use Types Packs/Day Years Used Date Smoking Tobacco: Never Assessed Comments Unknown Sex and Gender Information Value Date Recorded Sex Assigned at Not on file Legal Sex Female 2:23 PM CDT Gender Identity Not on file Sexual Orientation Not on file documented as of this encounter Miscellaneous Notes * Cerner Conversion Note - Historical ProviderMD - 09/18/2018 5:00 AM CDT Chart Check - Review Order Profile Entered On: 09/18/2018 5:15 EDT Performed On: 09/18/2018 5:00 EDT by Kelly Deng, RN Chart Check Powerplans Initiated/Discontinued as Appropriate : Yes All Active Orders Reviewed : Yes Kelly Deng, LISBETH - 09/18/2018 5:15 EDT documented in this encounter Plan of Treatment Not on file documented as of this encounter Visit Diagnoses Not on filedocumented in this encounter Care Teams Mailing Machine Operator Relationship Specialty Start Date End Date Juan José Kendall MD [address] [place] [phone] PCP - General Family Medicine 12/25/22 Juan José Kendall MD [address] [place] [phone] Referring Physician Family Medicine 12/25/22 documented as of this encounter
--- OUTSIDE RECORDS SUMMARY | 2024-03-11 09:18 | XMS_ITS | Encounter Summary ---
Author Organization [employer] Address [address] [facility] [place] [address] Care Team Providers Care Elastic Assembler Name Role Phone Juan José Kendall MD Primary Care Provider +- [phone] Juan José Kendall MD Unavailable +[phone] Encounter Details Date Type Department Care Team (Late st Contact Info) Description 09/21/2018 Transcribed Document [facility] [place] Family [place] [facility] [place] [address] ProviderLaurie MD [address] [place] [address] Social History Tobacco Use Types Packs/Day Years Used Date Smoking Tobacco: Never Assessed Comments Unknown Sex and Gender Information Value Date Recorded Sex Assigned at Not on file Legal Sex Female 2:23 PM CDT Gender Identity Not on file Sexual Orientation Not on file documented as of this encounter Miscellaneous Notes * Cerner Conversion Note - Laurie ProviderMD - 09/21/2018 3:45 PM CDT Care Management Assessment/Plan Entered On: 09/21/2018 15:48 EDT Performed On: 09/21/2018 15:45 EDT by PJ NELSON Care Management Note Care Management Note : 09/21/2018 Fax recieved from [facility] with approval for LTACH coverage 09/22/2018-09/28/2018. Auth# [id number]. Fax next clinical review to [phone] on 09/28/2018. Care Management Note Report : PJ NELSON - 09/21/18 08:22:57 09/21/2018 Clinical review faxed to [facility] ([phone]) to request coverage for continued LTACH services. Approval pending. Auth# [id number]. PJ NELSON - 09/15/18 11:34:17 09/15/2018 Fax recieved from [facility] with approval for LTACH services 09/15-09/21/2018. Auth# [id number]. Fax next clinical review to [phone] on 09/21/2018. PJ NELSON - 09/14/18 08:28:49 09/14/2018 Clinical review faxed to [facility] ([phone]) to request coverage for continued LTACH services. Approval pending. Auth# [id number]. Chuyita Briceno, Clinical Assessment Liaison - 09/09/18 [...] unit or SNF. She has previously used [facility] and prefers to use them again if needed. The patient owns a shower chair, BSC and w/c. The patient has never needed a dialysis clinic. The patient has not fallen in the past 3 months. PCP- Dr. Ranjeet [facility]- Orthopedic- Dr. Shay Guerrero [facility] - [facility] SN[facility]- [facility] [place] The patient does wish to return home upon discharge but understands that rehab/SNF may be needed. All papers were explained and signed. No other issues. CM will continue to monitor. Documentation Status Complete : Yes PJ NELSON - 09/21/2018 15:45 EDT documented in this encounter Plan of Treatment Not on file documented as of this encounter Visit Diagnoses Not on filedocumented in this encounter Care Teams Elastic Assembler Relationship Specialty Start Date End Date Juan José Kendall MD [address] [place] [address] PCP - General Family Medicine 12/25/22 Juan José Kendall MD [address] [place] [address] Referring Physician Family Medicine 12/25/22 documented as of this encounter
--- OUTSIDE RECORDS SUMMARY | 2024-03-11 09:18 | XMS_ITS | Encounter Summary ---
Author Organization [employer] Address [address] [facility] [place] [address] Care Team Providers Care Timber Sizer Operator Name Role Phone Juan José Kendall MD Primary Care Provider +- [phone] Juan José Kendall MD Unavailable [phone] Encounter Details Date Type Department Care Team (Late st Contact Info) Description 09/21/2018 Transcribed Document [facility] Family [facility] [place] [address] ProviderLaurie MD [address] [place] [address] Social History Tobacco Use Types Packs/Day Years Used Date Smoking Tobacco: Never Assessed Comments Unknown Sex and Gender Information Value Date Recorded Sex Assigned at Not on file Legal Sex Female 2:23 PM CDT Gender Identity Not on file Sexual Orientation Not on file documented as of this encounter Miscellaneous Notes * Cerner Conversion Note - Laurie ProviderMD - 09/21/2018 3:00 AM CDT Pain Assessment Entered On: 09/21/2018 3:02 EDT Performed On: 09/21/2018 3:09 EDT by Mercedes Krishnan RN Intervention Information: acetaminophen Performed by Mercedes Krishnan RN on 09/21/2018 02:09:00 EDT acetaminophen,500mg Oral Pain Assessment Pain Assessment : Follow-up assessment Pain Scale Goal : 3 Pain Scale Used : 0-10 Scale Mercedes Krishnan RN - 09/21/2018 3:02 EDT Pain Scale Intensity : 3 Mercedes Krishnan RN - 09/21/2018 3:02 EDT Image 4 - Images currently included in the form version of this document have not been included in the text rendition version of the form. documented in this encounter Plan of Treatment Not on file documented as of this encounter Visit Diagnoses Not on filedocumented in this encounter Care Teams Timber Sizer Operator Relationship Specialty Start [place] [address] [place] [address] [address] [place] [address] PCP - General Family Medicine 12/25/22 Juan José Kendall MD [address] [place] [address] [address] [place] [address] Referring Physician Family Medicine 12/25/22 documented as of this encounter
--- OUTSIDE RECORDS SUMMARY | 2024-03-11 09:18 | XMS_ITS | Encounter Summary ---
Author Organization [employer] Address [address] [facility] [place] [address] Care Team Providers Care Crop And Soil Scientist Name Role Phone Juan José Kendall MD Primary Care Provider + [phone] Juan José Kendall MD Unavailable [phone] Encounter Details Date Type Department Care Team (Late st Contact Info) Description 09/19/2018 Transcribed Document [facility] [place] [address] [place] [address] ProviderLaurie MD [address] [place] [address] Social History Tobacco Use Types Packs/Day Years Used Date Smoking Tobacco: Never Assessed Comments Unknown Sex and Gender Information Value Date Recorded Sex Assigned at Not on file Legal Sex Female 2:23 PM CDT Gender Identity Not on file Sexual Orientation Not on file documented as of this encounter Miscellaneous Notes * Cerner Conversion Note - Historical ProviderMD - 09/19/2018 5:00 PM CDT Chart Check - Review Order Profile Entered On: 09/19/2018 18:31 EDT Performed On: 09/19/2018 17:00 EDT by ENOCH PERDOMO LPN Chart Check Powerplans Initiated/Discontinued as Appropriate : Yes All Active Orders Reviewed : Yes ENOCH PERDOMO LPN - 09/19/2018 18:31 EDT documented in this encounter Plan of Treatment Not on file documented as of this encounter Visit Diagnoses Not on filedocumented in this encounter Care Teams Crop And Soil Scientist Relationship Specialty Start Date End Date Juan José Kendall MD [address] [place] [address] PCP - General Family Medicine 12/25/22 Juan José Kendall MD [address] [place] [address] Referring Physician Family Medicine 12/25/22 documented as of this encounter
--- OUTSIDE RECORDS SUMMARY | 2024-03-11 09:18 | XMS_ITS | Encounter Summary ---
Author Organization [employer] Address [address] [facility] [place] [address] Care Team Providers Care Fbi Field Agent Name Role Phone Juan José Kendall MD Primary Care Provider + [phone] Juan José Kendall MD Unavailable [phone] Encounter Details Date Type Department Care Team (Late st Contact Info) Description 09/19/2018 Transcribed Document [facility] [place] Family [place] [facility] [place] [address] ProviderLaurie MD [address] [place] [address] Social History Tobacco Use Types Packs/Day Years Used Date Smoking Tobacco: Never Assessed Comments Unknown Sex and Gender Information Value Date Recorded Sex Assigned at Not on file Legal Sex Female 2:23 PM CDT Gender Identity Not on file Sexual Orientation Not on file documented as of this encounter Miscellaneous Notes * Cerner Conversion Note - Historical ProviderMD - 09/19/2018 9:00 PM CDT Patch Check Entered On: 09/20/2018 3:45 EDT Performed On: 09/19/2018 21:00 EDT by Linh Honeycutt RN Patch Check Patch Check Result : Yes Patch Check - Type of Patch : scopolamine (Transderm-Scop) Linh Honeycutt RN - 09/20/2018 3:45 EDT documented in this encounter Plan of Treatment Not on file documented as of this encounter Visit Diagnoses Not on filedocumented in this encounter Care Teams Fbi Field Agent Relationship Specialty Start Date End Date Juan José Kendall MD [address] [place] [address] PCP - General Family Medicine 12/25/22 Juan José Kendall MD [address] [place] [address] Referring Physician Family Medicine 12/25/22 documented as of this encounter
--- OUTSIDE RECORDS SUMMARY | 2024-03-11 09:18 | XMS_ITS | Encounter Summary ---
Author Organization [employer] Address [address] [place] [address] Care Team Providers Care Room Service Food Server Name Role Phone Juan José Kendall MD Primary Care Provider + [phone] Juan José Kendall MD Unavailable [phone] Encounter Details Date Type Department Care Team (Late st Contact Info) Description 09/20/2018 Transcribed Document [facility] [place] Family Medicine [facility] [place] [address] ProviderLaurie MD [address] [place] [address] Social History Tobacco Use Types Packs/Day Years Used Date Smoking Tobacco: Never Assessed Comments Unknown Sex and Gender Information Value Date Recorded Sex Assigned at Not on file Legal Sex Female 2:23 PM CDT Gender Identity Not on file Sexual Orientation Not on file documented as of this encounter Miscellaneous Notes * Cerner Conversion Note - Historical ProviderMD - 09/20/2018 6:00 PM CDT Patch Check Entered On: 09/20/2018 18:02 EDT Performed On: 09/20/2018 18:00 EDT by Renate Wilson RN Patch Check Patch Check Result : Yes Patch Check - Type of Patch : scopolamine (Transderm-Scop) Renate Wilson RN - 09/20/2018 18:01 EDT documented in this encounter Plan of Treatment Not on file documented as of this encounter Visit Diagnoses Not on filedocumented in this encounter Care Teams Room Service Food Server Relationship Specialty Start Date End Date Juan José Kendall MD [address] [place] [address] PCP - General Family Medicine 12/25/22 Juan José Kendall MD [address] [place] [address] Referring Physician Family Medicine 12/25/22 documented as of this encounter
--- OUTSIDE RECORDS SUMMARY | 2024-03-11 09:18 | XMS_ITS | Encounter Summary ---
Author Organization [employer] Address [address] [place] [address] Care Team Providers Care Vendette Name Role Phone Juan José Kendall MD Primary Care Provider + [phone] Juan José Kendall MD Unavailable [phone] Encounter Details Date Type Department Care Team (Late st Contact Info) Description 09/20/2018 Transcribed Document [facility] [place] [address] [place] [address] ProviderLaurie MD [address] [place] [address] Social History Tobacco Use Types Packs/Day Years Used Date Smoking Tobacco: Never Assessed Comments Unknown Sex and Gender Information Value Date Recorded Sex Assigned at Not on file Legal Sex Female 2:23 PM CDT Gender Identity Not on file Sexual Orientation Not on file documented as of this encounter Miscellaneous Notes * Cerner Conversion Note - Historical ProviderMD - 09/20/2018 5:00 PM CDT Chart Check - Review Order Profile Entered On: 09/20/2018 15:56 EDT Performed On: 09/20/2018 17:00 EDT by Renate Wilson RN Chart Check Powerplans Initiated/Discontinued as Appropriate : Yes All Active Orders Reviewed : Yes Renate Wilson RN - 09/20/2018 15:56 EDT documented in this encounter Plan of Treatment Not on file documented as of this encounter Visit Diagnoses Not on filedocumented in this encounter Care Teams Vendette Relationship Specialty Start Date End Date Juan José Kendall MD [address] [place] [phone] PCP - General Family Medicine 12/25/22 Juan José Kendall MD [address] [place] [phone] Referring Physician Family Medicine 12/25/22 documented as of this encounter
--- OUTSIDE RECORDS SUMMARY | 2024-03-11 09:18 | XMS_ITS | Encounter Summary ---
Author Organization [employer] Address [address] [place] [address] Care Team Providers Care Pelletizer Name Role Phone Juan José Kendall MD Primary Care Provider +- [phone] Juan José Kendall MD Unavailable [phone] Encounter Details Date Type Department Care Team (Late st Contact Info) Description 09/20/2018 Transcribed Document [facility] [place] [facility] [place] [address] ProviderLaurie MD [address] [place] [id number] Social History Tobacco Use Types Packs/Day Years Used Date Smoking Tobacco: Never Assessed Comments Unknown Sex and Gender Information Value Date Recorded Sex Assigned at Not on file Legal Sex Female 2:23 PM CDT Gender Identity Not on file Sexual Orientation Not on file documented as of this encounter Miscellaneous Notes * Cerner Conversion Note - Historical ProviderMD - 09/20/2018 3:00 PM CDT Pain Assessment Entered On: 09/20/2018 15:56 EDT Performed On: 09/20/2018 15:12 EDT by Renate Wilson RN Intervention Information: acetaminophen Performed by ALEX LEMUS RN on 09/20/2018 14:12:00 EDT acetaminophen,500mg Oral Pain Assessment Pain Assessment : Follow-up assessment Pain Scale Goal : 3 Pain Scale Used : 0-10 Scale Renate Wilson RN - 09/20/2018 15:56 EDT Pain Scale Intensity : 1 Renate Wilson RN - 09/20/2018 15:56 EDT Image 4 - Images currently included in the form version of this document have not been included in the text rendition version of the form. documented in this encounter Plan of Treatment Not on file documented as of this encounter Visit Diagnoses Not on filedocumented in this encounter Care Teams Pelletizer Relationship Specialty Start Date End Date Juan José Kendall MD [address] [facility] [address] [place] [phone] PCP - General Family Medicine 12/25/22 Juan José Kendall MD [address] [facility] [address] [place] [phone] Referring Physician Family Medicine 12/25/22 documented as of this encounter
--- OUTSIDE RECORDS SUMMARY | 2024-03-11 09:18 | XMS_ITS | Encounter Summary ---
Author Organization [employer] Address [address] [place] [address] Care Team Providers Care Research Biologist Name Role Phone Juan José Kendall MD Primary Care Provider + [phone] Juan José Kendall MD Unavailable [phone] Encounter Details Date Type Department Care Team (Late st Contact Info) Description 09/20/2018 Transcribed Document [facility] [place] Family Medicine [facility] [place] [address] ProviderLaurie MD [address] [place] [address] Social History Tobacco Use Types Packs/Day Years Used Date Smoking Tobacco: Never Assessed Comments Unknown Sex and Gender Information Value Date Recorded Sex Assigned at Not on file Legal Sex Female 2:23 PM CDT Gender Identity Not on file Sexual Orientation Not on file documented as of this encounter Miscellaneous Notes * Cerner Conversion Note - Historical ProviderMD - 09/20/2018 5:00 AM CDT Chart Check - Review Order Profile Entered On: 09/20/2018 7:56 EDT Performed On: 09/20/2018 5:00 EDT by Linh Honeycutt RN Chart Check Powerplans Initiated/Discontinued as Appropriate : Yes All Active Orders Reviewed : Yes Linh Honeycutt RN - 09/20/2018 7:56 EDT documented in this encounter Plan of Treatment Not on file documented as of this encounter Visit Diagnoses Not on filedocumented in this encounter Care Teams Research Biologist Relationship Specialty Start Date End Date Juan José Kendall MD [address] [place] [phone] PCP - General Family Medicine 12/25/22 Juan José Kendall MD [address] [place] [phone] Referring Physician Family Medicine 12/25/22 documented as of this encounter
--- OUTSIDE RECORDS SUMMARY | 2024-03-11 09:18 | XMS_ITS | Encounter Summary ---
Author Organization [employer] Address [address] [place] [address] Care Team Providers Care Chief Of Safety And Protection Name Role Phone Juan José Kendall MD Primary Care Provider + [phone] Juan José Kendall MD Unavailable [phone] Encounter Details Date Type Department Care Team (Late st Contact Info) Description 09/21/2018 Transcribed Document [facility] [place] Family Medicine [facility] [place] [address] ProviderLaurie MD [address] [place] [address] Social History Tobacco Use Types Packs/Day Years Used Date Smoking Tobacco: Never Assessed Comments Unknown Sex and Gender Information Value Date Recorded Sex Assigned at Not on file Legal Sex Female 2:23 PM CDT Gender Identity Not on file Sexual Orientation Not on file documented as of this encounter Miscellaneous Notes * Cerner Conversion Note - Laurie ProviderMD - 09/21/2018 5:00 AM CDT Chart Check - Review Order Profile Entered On: 09/21/2018 3:01 EDT Performed On: 09/21/2018 5:00 EDT by Mercedes Krishnan RN Chart Check All Active Orders Reviewed : Yes Mercedes Krishnan RN - 09/21/2018 3:01 EDT documented in this encounter Plan of Treatment Not on file documented as of this encounter Visit Diagnoses Not on filedocumented in this encounter Care Teams Chief Of Safety And Protection Relationship Specialty Start Date End Date Juan José Kendall MD [address] [place], [place] [address] PCP - General Family Medicine 12/25/22 Juan José Kendall MD [address] [place] [phone] Referring Physician Family Medicine 12/25/22 documented as of this encounter
--- OUTSIDE RECORDS SUMMARY | 2024-03-11 09:18 | XMS_ITS | Encounter Summary ---
Author Organization [employer] Address [address] [facility] [place] [address] Care Team Providers Care Grain Merchandising Manager Name Role Phone Juan José Kendall MD Primary Care Provider + [phone] Juan José Kendall MD Unavailable [phone] Encounter Details Date Type Department Care Team (Late st Contact Info) Description 09/21/2018 Transcribed Document [facility] Family Medicine [facility] [address] Laurie Garcia MD [address] [place] [address] Social History Tobacco Use Types Packs/Day Years Used Date Smoking Tobacco: Never Assessed Comments Unknown Sex and Gender Information Value Date Recorded Sex Assigned at Not on file Legal Sex Female 2:23 PM CDT Gender Identity Not on file Sexual Orientation Not on file documented as of this encounter Miscellaneous Notes * Cerner Conversion Note - Laurie ProviderMD - 09/21/2018 8:11 AM CDT Interdisciplinary Rounds Entered On: 09/21/2018 8:13 EDT Performed On: 09/21/2018 8:11 EDT by PJ NELSON Interdisciplinary Rounds Interdisciplinary Rounds Participants : manager clinical informatics Patient's Priority Needs : IV Abx -> 7/3 Wound care-> wound vac PT/OT Progress Toward Discharge : Prior to hospitalization, lived with her spouse, and required assistance with all ADL's. SNF vs home with home health Notes to Care Team : DRG 560 Aftercare ALOS 20-24 days Anticipated DC 10/01/2018 PJ NELSON - 09/21/2018 8:11 EDT documented in this encounter Plan of Treatment Not on file documented as of this encounter Visit Diagnoses Not on filedocumented in this encounter Care Teams Grain Merchandising Manager Relationship Specialty Start Date End Date Juan José Kendall MD [address] [facility] [address] [place] [address] PCP - General Family Medicine 12/25/22 Juan José Kendall MD [address] [facility] [address] [place] [address] Referring Physician Family Medicine 12/25/22 documented as of this encounter
--- OUTSIDE RECORDS SUMMARY | 2024-03-11 09:18 | XMS_ITS | Encounter Summary ---
Author Organization [employer] Address [address] [facility] [place] [address] Care Team Providers Care Tooling Manager Name Role Phone Juan José Kendall MD Primary Care Provider + [phone] Juan José Kendall MD Unavailable [phone] Encounter Details Date Type Department Care Team (Late st Contact Info) Description 09/21/2018 Transcribed Document [facility] [place] Family [place] [facility] [place] [address] ProviderLaurie MD [address] [place] [address] Social History Tobacco Use Types Packs/Day Years Used Date Smoking Tobacco: Never Assessed Comments Unknown Sex and Gender Information Value Date Recorded Sex Assigned at Not on file Legal Sex Female 2:23 PM CDT Gender Identity Not on file Sexual Orientation Not on file documented as of this encounter Miscellaneous Notes * Cerner Conversion Note - Historical ProviderMD - 09/21/2018 8:08 AM CDT Interdisciplinary Rounds Entered On: 09/21/2018 8:10 EDT Performed On: 09/21/2018 8:08 EDT by NATALEE DALEY, PT Interdisciplinary Rounds Interdisciplinary Rounds Participants : Physical Therapy Progress Toward Discharge : Patient cooperating but has physical barriers: left LE NWB with antibiotic spacer. Right LE chronically weak and debilitated from past history of torn patellar tendon with surgical repair. Tolerating occasional attempts to EOB (mod assist x 2). Participating in therapeutic exercises, UE's and right LE. Transfers are a challenge considering patient's NWB left LE and profound weakness right LE. NATALEE DALEY, PT - 09/21/2018 8:08 EDT Electronically signed by Aleks, [facility] Conversion Client Technical Support Associate Cerner at 07/24/2022 3:35 PM CDT documented in this encounter Plan of Treatment Not on file documented as of this encounter Visit Diagnoses Not on filedocumented in this encounter Care Teams Tooling Manager Relationship Specialty Start Date End Date Juan José Kendall MD [address] [facility] [address] [place] [phone] PCP - General Family Medicine 12/25/22 Juan José Kendall MD [facility] [facility] [address] [place] [address] Referring Physician Family Medicine 12/25/22 documented as of this encounter
--- OUTSIDE RECORDS SUMMARY | 2024-03-11 09:18 | XMS_ITS | Encounter Summary ---
Author Organization [employer] Address [address] [place] [address] Care Team Providers Care Transportation Maintenance Specialist Name Role Phone Juan José Kendall MD Primary Care Provider +- [phone] Juan José Kendall MD Unavailable [phone] Encounter Details Date Type Department Care Team (Late st Contact Info) Description 09/19/2018 Transcribed Document [facility] [place] Family Medicine [facility] [place] [address] ProviderLaurie MD [address] [place] [id number] Social History Tobacco Use Types Packs/Day Years Used Date Smoking Tobacco: Never Assessed Comments Unknown Sex and Gender Information Value Date Recorded Sex Assigned at Not on file Legal Sex Female 2:23 PM CDT Gender Identity Not on file Sexual Orientation Not on file documented as of this encounter Miscellaneous Notes * Cerner Conversion Note - Laurie ProviderMD - 09/19/2018 9:00 PM CDT Pain Assessment Entered On: 09/20/2018 3:46 EDT Performed On: 09/19/2018 21:51 EDT by Linh Honeycutt RN Intervention Information: acetaminophen Performed by Linh Honeycutt RN on 09/19/2018 20:51:00 EDT acetaminophen,500mg Oral Pain Assessment Pain Assessment : Follow-up assessment Pain Scale Goal : 3 Pain Improved by Intervention : Yes Linh Honeycutt RN - 09/20/2018 3:46 EDT documented in this encounter Plan of Treatment Not on file documented as of this encounter Visit Diagnoses Not on filedocumented in this encounter Care Teams Transportation Maintenance Specialist Relationship Specialty Start Date End Date Juan José Kendall MD [address] [facility] [address] [place] [address] PCP - General Family Medicine 12/25/22 Juan José Kendall MD [address] [facility] [address] [place] [address] Referring Physician Family Medicine 12/25/22 documented as of this encounter
--- OUTSIDE RECORDS SUMMARY | 2024-03-11 09:18 | XMS_ITS | Encounter Summary ---
Author Organization [employer] Address [address] [place] [address] Care Team Providers Care Smearer Name Role Phone Juan José Kendall MD Primary Care Provider +- [phone] Juan José Kendall MD Unavailable [phone] Encounter Details Date Type Department Care Team (Late st Contact Info) Description 09/18/2018 Transcribed Document [facility] [place] [facility] [place] [address] ProviderLaurie MD [address] [place] [address] Social History Tobacco Use Types Packs/Day Years Used Date Smoking Tobacco: Never Assessed Comments Unknown Sex and Gender Information Value Date Recorded Sex Assigned at Not on file Legal Sex Female 2:23 PM CDT Gender Identity Not on file Sexual Orientation Not on file documented as of this encounter Miscellaneous Notes * Cerner Conversion Note - Historical ProviderMD - 09/18/2018 2:00 AM CDT Cage Unloader Details Entered On: 09/18/2018 0:59 EDT Performed On: 09/18/2018 2:00 EDT by Kelly Deng, RN Order Details Transport Mode Order Detail : Bed (including specialty) Isolation Precautions Order Detail : Standard Precautions Order Detail : 0 IV Order Detail : 0 Oxygen Order Detail : 0 Nurse Collect Order Detail : 1 Lift/Transfer : Maximal assist Central Line Order Detail : Yes Room Service : Appropriate Arterial Line : No Kelly Deng, RN - 09/18/2018 0:59 EDT Electronically signed by Aleks [facility] Conversion Dry Color Mixer Cerner at 07/24/2022 3:55 PM CDT documented in this encounter Plan of Treatment Not on file documented as of this encounter Visit Diagnoses Not on filedocumented in this encounter Care Teams Smearer Relationship Specialty Start Date End Date Juan José Kendall MD [address] [facility] [address] [place] [address] PCP - General Family Medicine 12/25/22 Juan José Kendall MD [address] [facility] [address] [place] [id number] Referring Physician Family Medicine 12/25/22 documented as of this encounter
--- OUTSIDE RECORDS SUMMARY | 2024-03-11 09:18 | XMS_ITS | Encounter Summary ---
Author Organization [employer] Address [address] [place] [address] Care Team Providers Care Train Clerk Name Role Phone Juan José Kendall MD Primary Care Provider +- [phone] Juan José Kendall MD Unavailable [phone] Encounter Details Date Type Department Care Team (Late st Contact Info) Description 09/22/2018 Transcribed Document [facility] Family Medicine [facility] [place] [address] ProviderLaurie MD [address] [place] [address] Social History Tobacco Use Types Packs/Day Years Used Date Smoking Tobacco: Never Assessed Comments Unknown Sex and Gender Information Value Date Recorded Sex Assigned at Not on file Legal Sex Female 2:23 PM CDT Gender Identity Not on file Sexual Orientation Not on file documented as of this encounter Miscellaneous Notes * Cerner Conversion Note - Historical ProviderMD - 09/22/2018 2:00 AM CDT Paste Up Worker Details Entered On: 09/22/2018 2:33 EDT Performed On: 09/22/2018 2:00 EDT by Mercedes Krishnan RN Order Details Transport Mode Order Detail : Bed (including specialty) Isolation Precautions Order Detail : Standard Precautions Order Detail : 0 IV Order Detail : 0 Oxygen Order Detail : 0 Lift/Transfer : Maximal assist Central Line Order Detail : Yes Room Service : Appropriate Arterial Line : No Mercedes Krishnan RN - 09/22/2018 2:33 EDT documented in this encounter Plan of Treatment Not on file documented as of this encounter Visit Diagnoses Not on filedocumented in this encounter Care Teams Train Clerk Relationship Specialty Start Date End Date Juan José Kendall MD [address] [facility] [address] [place] [id number] PCP - General Family Medicine 12/25/22 Juan José Kendall MD [address] [facility] [address] [place] [phone] Referring Physician Family Medicine 12/25/22 documented as of this encounter
--- OUTSIDE RECORDS SUMMARY | 2024-03-11 09:18 | XMS_ITS | Encounter Summary ---
Author Organization [employer] Address [address] [place] [address] Care Team Providers Care Team Cdl Driver Name Role Phone Juan José Kendall MD Primary Care Provider + [phone] Juan José Kendall MD Unavailable [phone] Encounter Details Date Type Department Care Team (Late st Contact Info) Description 09/19/2018 Transcribed Document [facility] [place] [address] ProviderLaurie MD [address] [place] [address] Social History Tobacco Use Types Packs/Day Years Used Date Smoking Tobacco: Never Assessed Comments Unknown Sex and Gender Information Value Date Recorded Sex Assigned at Not on file Legal Sex Female 2:23 PM CDT Gender Identity Not on file Sexual Orientation Not on file documented as of this encounter Miscellaneous Notes * Cerner Conversion Note - Laurie Garcia MD - 09/19/2018 11:07 PM CDT Patient: TRUDI BLAIR Age: 63 [...] inj 4 mg 2 mL, IV Push, [id number] pantoprazole EC 40 mg tab 40 mg [...] Water 250 mL 1,000 mg, IV Piggyback, [id number] Continuous: (0) PRN: (21) acetaminophen 325 mg [...] Stress incontinence Physical Examination VS/Measurements Vital Measurements 09/19/2018 19:00 EDT Systolic Blood Pressure 154 mmHg HI Diastolic Blood Pressure 73 mmHg Temperature Source Oral Temperature Mode Fahrenheit Temperature, Fahrenheit 98.4 Deg F Clinical Temperature, C 36.9 Deg C Heart Rate Monitored 77 bpm [...] Review / Management Results review: All Results 09/19/2018 5:26 EDT Sodium Level 146 mmol/L [...] % 19.9 % Lymph # 1.14 x10(3)/uL [place] % 10.3 % HI [place] # 0.59 K/uL Eos % 5.8 % Eos # 0.33 x10(3)/uL Baso % 0.7 % Baso # 0.04 x10(3)/uL Sed Rate Auto 9 mm/Hr Slide Review No IG# 0.02 x10(3)/uL IG% 0.30 % Prealbumin 13.1 mg/dL LOW 09/18/2018 4:29 EDT Sodium Level 146 mmol/L Potassium Level 3.4 mmol/L LOW Chloride Level 116 mmol/L HI Carbon Dioxide Level 25 mmol/L Anion Gap 8 LOW Glucose Level 90 mg/dL Blood Urea Nitrogen 30 mg/dL HI Creatinine Level 1.10 mg/dL HI eGFR >60 mL/min/1.73m2 eGFR NonAfrican 50 mL/min/1.73m2 LOW Bun/Creatinine 27.3 HI Calcium Level 8.0 mg/dL LOW . Condition: Stable. Impression and [...] precautions -Stress ulcer prophylaxis. Electronically signed by Adia Fink Conversion Senior Financial Reporting Accountant Cerner at 07/24/2022 3:53 PM CDT documented in this encounter Plan of Treatment Not on file documented as of this encounter Visit Diagnoses Not on filedocumented in this encounter Care Teams Team Cdl Driver Relationship Specialty Start Date End Date Juan José Kendall MD [address] [facility] [address] [place] [address] PCP - General Family Medicine 12/25/22 Juan José Kendall MD [address] [place] [phone] Referring Physician Family Medicine 12/25/22 documented as of this encounter
--- OUTSIDE RECORDS SUMMARY | 2024-03-11 09:18 | XMS_ITS | Encounter Summary ---
Author Organization [employer] Address [address] [place] [address] Care Team Providers Care Kiln Hand Name Role Phone Juan José Kendall MD Primary Care Provider + [phone] Juan José Kendall MD Unavailable [phone] Encounter Details Date Type Department Care Team (Late st Contact Info) Description 09/22/2018 Transcribed Document [facility] [place] [address] ProviderLaurie MD [address] [place] [address] Social History Tobacco Use Types Packs/Day Years Used Date Smoking Tobacco: Never Assessed Comments Unknown Sex and Gender Information Value Date Recorded Sex Assigned at Not on file Legal Sex Female 2:23 PM CDT Gender Identity Not on file Sexual Orientation Not on file documented as of this encounter Miscellaneous Notes * Cerner Conversion Note - Laurie Garcia MD - 09/22/2018 9:36 PM CDT Patient: TRUDI BLAIR Age: 63 [...] pain under control, no trouble w. urination. ???Now nausea is back ???No diarrhea ???Had vomiting Review of Systems Constitutional: No fever, No [...] inj 4 mg 2 mL, IV Push, [id number] pantoprazole EC 40 mg tab 40 mg [...] Stress incontinence Physical Examination VS/Measurements Vital Measurements 09/22/2018 19:00 EDT Systolic Blood Pressure 144 mmHg HI Diastolic Blood Pressure 68 mmHg Temperature Source Oral Temperature Mode Fahrenheit Temperature, Fahrenheit 97.8 Deg F Clinical Temperature, C 36.6 Deg C Heart Rate Monitored 75 bpm Respiratory Rate 17 Breaths/Min Oxygen Saturation 96 % General: Alert [...] Review / Management Results review: All Results 09/22/2018 4:50 EDT Sodium Level 146 mmol/L [...] -DVT prophylaxis -Close monitoring fluid and electrolytes -Continue IV antibiotics as recommended by infectious disease -Wound care -Stress ulcer prophylaxis. documented in this encounter Plan of Treatment Not on file documented as of this encounter Visit Diagnoses Not on filedocumented in this encounter Care Teams Kiln Hand Relationship Specialty Start Date End Date Juan José Kendall MD [address] [facility] [address] [facility] [place] [address] PCP - General Family Medicine 12/25/22 Juan José Kendall MD [address] [facility] [address] [place] [address] Referring Physician Family Medicine 12/25/22 documented as of this encounter
--- OUTSIDE RECORDS SUMMARY | 2024-03-11 09:18 | XMS_ITS | Encounter Summary ---
Author Organization [employer] Address [address] [place] [address] Care Team Providers Care Coffee Grower Name Role Phone Juan José Kendall MD Primary Care Provider +- [phone] Juan José Kendall MD Unavailable [phone] Encounter Details Date Type Department Care Team (Late st Contact Info) Description 09/19/2018 Transcribed Document [facility] [place] [facility] [address] ProviderLaurie MD [address] [place] [address] Social History Tobacco Use Types Packs/Day Years Used Date Smoking Tobacco: Never Assessed Comments Unknown Sex and Gender Information Value Date Recorded Sex Assigned at Not on file Legal Sex Female 2:23 PM CDT Gender Identity Not on file Sexual Orientation Not on file documented as of this encounter Miscellaneous Notes * Cerner Conversion Note - Laurie ProviderMD - 09/19/2018 3:00 AM CDT Pain Assessment Entered On: 09/19/2018 6:45 EDT Performed On: 09/19/2018 4:54 EDT by Mercedes Krishnan RN Intervention Information: acetaminophen Performed by Mercedes Krishnan RN on 09/19/2018 03:54:00 EDT acetaminophen,500mg Oral Pain Assessment Pain Assessment : Follow-up assessment Pain Scale Goal : 3 Pain Scale Used : 0-10 Scale Mercedes Krishnan RN - 09/19/2018 6:45 EDT Pain Scale Intensity : 3 Mercedes Krishnan RN - 09/19/2018 6:45 EDT Image 4 - Images currently included in the form version of this document have not been included in the text rendition version of the form. documented in this encounter Plan of Treatment Not on file documented as of this encounter Visit Diagnoses Not on filedocumented in this encounter Care Teams Coffee Grower Relationship Specialty Start [place] [address] [place] [address] [address] [place] [phone] PCP - General Family Medicine 12/25/22 Juan José Kendall MD [address] [place] [address] [address] [place] [phone] Referring Physician Family Medicine 12/25/22 documented as of this encounter
--- OUTSIDE RECORDS SUMMARY | 2024-03-11 09:19 | XMS_ITS | Encounter Summary ---
Author Organization [employer] Address [address] [facility] [place] [address] Care Team Providers Care Child Care Group Leader Name Role Phone Juan José Kendall MD Primary Care Provider + [phone] Juan José Kendall MD Unavailable [phone] Encounter Details Date Type Department Care Team (Late st Contact Info) Description 09/15/2018 Transcribed Document [facility] [place] Family Medicine [facility] [place] [address] ProviderLaurie MD [address] [place] [address] Social History Tobacco Use Types Packs/Day Years Used Date Smoking Tobacco: Never Assessed Comments Unknown Sex and Gender Information Value Date Recorded Sex Assigned at Not on file Legal Sex Female 2:23 PM CDT Gender Identity Not on file Sexual Orientation Not on file documented as of this encounter Miscellaneous Notes * Cerner Conversion Note - Historical ProviderMD - 09/15/2018 6:00 PM CDT Patch Check Entered On: 09/15/2018 18:55 EDT Performed On: 09/15/2018 18:00 EDT by ENOCH PERDOMO LPN Patch Check Patch Check Result : Yes Patch Check - Type of Patch : scopolamine (Transderm-Scop) ENOCH PERDOMO LPN - 09/15/2018 18:55 EDT Electronically signed by Aleks [facility] Conversion Service Person Cerner at 07/24/2022 3:49 PM CDT documented in this encounter Plan of Treatment Not on file documented as of this encounter Visit Diagnoses Not on filedocumented in this encounter Care Teams Child Care Group Leader Relationship Specialty Start Date End Date Juan José Kendall MD [address] [place] [address] PCP - General Family Medicine 12/25/22 Juan José Kendall MD [address] [place] [phone] Referring Physician Family Medicine 12/25/22 documented as of this encounter
--- OUTSIDE RECORDS SUMMARY | 2024-03-11 09:19 | XMS_ITS | Encounter Summary ---
Author Organization [employer] Address [address] [place] [address] Care Team Providers Care Director Presales Name Role Phone Juan José Kendall MD Primary Care Provider + [phone] Juan José Kendall MD Unavailable [phone] Encounter Details Date Type Department Care Team (Late st Contact Info) Description 09/13/2018 Transcribed Document [facility] [place] Family Medicine [address] [place] [address] ProviderLaurie MD [address] [place] [address] Social History Tobacco Use Types Packs/Day Years Used Date Smoking Tobacco: Never Assessed Comments Unknown Sex and Gender Information Value Date Recorded Sex Assigned at Not on file Legal Sex Female 2:23 PM CDT Gender Identity Not on file Sexual Orientation Not on file documented as of this encounter Miscellaneous Notes * Cerner Conversion Note - Historical ProviderMD - 09/13/2018 5:00 PM CDT Chart Check - Review Order Profile Entered On: 09/13/2018 17:38 EDT Performed On: 09/13/2018 17:00 EDT by ENOCH PERDOMO LPN Chart Check Powerplans Initiated/Discontinued as Appropriate : Yes All Active Orders Reviewed : Yes ENOCH PERDOMO LPN - 09/13/2018 17:37 EDT documented in this encounter Plan of Treatment Not on file documented as of this encounter Visit Diagnoses Not on filedocumented in this encounter Care Teams Director Presales Relationship Specialty Start Date End Date Juan José Kendall MD [address] [place] [id number] PCP - General Family Medicine 12/25/22 Juan José Kendall MD [address] [place] [phone] Referring Physician Family Medicine 12/25/22 documented as of this encounter
--- OUTSIDE RECORDS SUMMARY | 2024-03-11 09:19 | XMS_ITS | Encounter Summary ---
Author Organization [employer] Address [address] [place] [address] Care Team Providers Care Older Adult Social Work Specialist Name Role Phone Juan José Kendall MD Primary Care Provider +- [phone] Juan José Kendall MD Unavailable [phone] Encounter Details Date Type Department Care Team (Late st Contact Info) Description 09/14/2018 Transcribed Document [facility] Family Medicine [facility] [place] [address] Laurie Garcia MD [address] [place] [address] Social History Tobacco Use Types Packs/Day Years Used Date Smoking Tobacco: Never Assessed Comments Unknown Sex and Gender Information Value Date Recorded Sex Assigned at Not on file Legal Sex Female 2:23 PM CDT Gender Identity Not on file Sexual Orientation Not on file documented as of this encounter Miscellaneous Notes * Cerner Conversion Note - Laurie ProviderMD - 09/14/2018 4:21 PM CDT [facility] Inpatient Documentation Entered On: 09/14/2018 16:21 EDT Performed On: 09/14/2018 16:21 EDT by ALEX FREY RN WOCN Admission [...] BACTERIA, UNSPECIFIED JOINT ALEX FREY RN - 09/14/2018 16:21 EDT WOCN Assessment Summary : pt seen for dressing change switched to dior and ALEX Lora RN - 09/14/2018 16:24 EDT Wound & Pressure Ulcer WOCN Wound Pressure Ulcer Documentation : [id number] Abnormality: Knee Left Midline on 09/14/2018 16:18 by ALEX FREY RN I/W/A Type: Incision, closed I/W/A Dressing Status: Drainage present, Intact I/W/A Dressing Activity: Dressing changed I/W/A Wound Bed Description: Stapled I/W/A Wound Edge: Approximated I/W/A Surrounding Tissue: Edematous I/W/A Drainage Amount: Moderate I/W/A Drainage Description: Serosanguineous I/W/A Cleansing/Irrigation: Sterile saline I/W/A Dressing Type/Treatment: NPWT Negative Pressure Wound Therapy Activity: Dressing changed NPWT Device Used: aidan Type of Foam/Gauze Removed: Other: prevena Number of Black Foam Gauze Removed: 1 Number of Contact Layer Pieces Removed: 0 Type of Foam/Gauze Applied: Black Foam, Contact layer Number of Black Foam Gauze Applied: 2 Number of Contact Layer Pieces Applied: 2 Number of TRAC Pads Applied: 1 NPWT Pressure: Continuous NPWT Pressure Settin NPWT Canister Changed: Yes NPWT Canister Level: 100 Pressure Ulcer Assessment: Heel Left Posterior on 09/12/2018 10:28 by ALEX FREY RN Present on Adm to Hosp: Yes Dressing Status: Intact Dressing Activity: Dressing changed Wound Bed Description: Eschar (leathery black or brown), Slough (soft yellow or zepeda) Bed Color(s): Brown, Yellow Wound Edge: Not Attached Drainage Amount: Minimal Drainage Description: Yellow Photographed: Yes Cleansing/Irrigation: Sterile saline Dressing Type/Treatment: [...] ostomy assessments reported. ALEX FREY RN - 09/14/2018 16:21 EDT Electronically signed by Aleks [facility] Conversion Tire Bagger Cerner at 07/24/2022 3:35 PM CDT documented in this encounter Plan of Treatment Not on file documented as of this encounter Visit Diagnoses Not on filedocumented in this encounter Care Teams Older Adult Social Work Specialist Relationship Specialty Start Date End Date Juan José Kendall MD [address] [facility] [address] [place] [address] PCP - General Family Medicine 12/25/22 Juan José Kendall MD [address] [facility] [address] [place] [address] Referring Physician Family Medicine 12/25/22 documented as of this encounter
--- OUTSIDE RECORDS SUMMARY | 2024-03-11 09:19 | XMS_ITS | Encounter Summary ---
Author Organization [employer] Address [address] [place] [address] Care Team Providers Care Senior Systems Engineer Name Role Phone Juan José Kendall MD Primary Care Provider +- [phone] Juan José Kendall MD Unavailable [phone] Encounter Details Date Type Department Care Team (Late st Contact Info) Description 09/14/2018 Transcribed Document [facility] [place] [facility] [place] [address] ProviderLaurie MD [address] [place] [id number] Social History Tobacco Use Types Packs/Day Years Used Date Smoking Tobacco: Never Assessed Comments Unknown Sex and Gender Information Value Date Recorded Sex Assigned at Not on file Legal Sex Female 2:23 PM CDT Gender Identity Not on file Sexual Orientation Not on file documented as of this encounter Miscellaneous Notes * Cerner Conversion Note - Historical ProviderMD - 09/14/2018 1:07 PM CDT Patient: TRUDI BLAIR Age: 63 [...] repair. She was more recently admitted to [facility] x2 earlier this month on [...] VAC remains in place. No further diarrhea. ROS: Gen: No fevers, no chills, no night sweats, no weight loss Eys: no vision loss, no eye pain HENT: no pain in oropharynx, no nasal drainage Neck: no neck pain, no neck stiffness CV: no chest pain, no palpitations, no peripheral edema Pulm: no SOB, no cough, no hemoptysis Abd: no abdominal pain, + nausea, + diarrhea : no dysuria, no increased urinary frequency, no urinary urgency Heme: no bleeding, no bruising, no LAD Neuro: no WHITMAN, no weakness MSK: + joint swelling. + decreased ROM. No tenderness over spine Skin: no rash, no skin breakdown. wound vac in place over right lower extremity Past Medical History: Arthritis Back pain GERD HLD NUVIA HTN Stress incontinence Past Surgical History: Left TKA, 2017 left patellar tendon repair, 06/2018 lumbar fusion hysterectomy right TKA right patellar tendon repair Family History: CAD HTN Cancer Social History: . lives in [place]. No tobacco, ETOH, or illicit drug use. Social & Psychosocial Habits Alcohol 06/23/2018 Alcohol Use History, Social Habits No Substance Abuse 06/23/2018 Recreational Drug Use History No Tobacco 06/23/2018 Smoking Status Never (less than 100 in l Smokeless Tobacco Status Never Objective: Vitals Signs (last 24 hrs) Last Charted Minimum Maximum Temp 98.1 (SEP 14 07:45) 98.1 (SEP 14 07:45) 98.4 (SEP 13 15:36) Apical HR 76 (SEP 14 09:25) 76 (SEP 14 09:25) 76 (SEP 14 09:25) Mon HR 76 (SEP 14 07:45) 73 (SEP 13 15:36) 77 (SEP 13 23:00) Resp Rate 18 (SEP 14 07:45) 14 (SEP 13 19:00) 18 (SEP 13 15:36) SBP H 141 (SEP 14 07:45) 136 (SEP 13 23:00) H 141 (SEP 14 07:45) DBP 74 (SEP 14 07:45) L 42 (SEP 13 23:00) 74 (SEP 14 07:45) SpO2 94 (SEP 14 07:45) 94 (SEP 14 07:45) 96 (SEP 13 15:36) PE: General: patient is alert and in no acute distress. morbidly obese HEENT: sclera white without conjunctival injection. No erythema, exudate or ulceration. No labial ulcers Neck: Supple without nuchal rigidity Lungs: Clear to auscultation bilaterally without wheezes, rales, or rhonchi. Normal respiratory effort Cardiovascular: normal S1/S2; RRR, no m/r/g. Abdomen: soft, non-tender, non-distended, positive bowel sounds throughout. Lower extremity: No cyanosis, clubbing or edema. wound vac in place over right lower extremity, no surrounding erythema Neuro: Alert and oriented x3. No focal deficits. Motor 5/5 upper and lower extremity strength; FROM Skin: Without rash; c/d/i groshong cath site over right chest is without erythema LABS: Labs (Last four charted values) WBC 7.2 (EDGARD 10) 7.1 (EDGARD 07) HB L 8.2 (EDGARD 10) L 8.1 (EDGARD 07) HCT L 26.4 (EDGARD 10) L 25.3 (EDGARD 07) Plt 235 (EDGARD 12) 279 (EDGARD 10) 350 (EDGARD 08) 321 (EDGARD 07) Na 146 (EDGARD 12) 146 (EDGARD 11) H 147 (EDGARD 10) H 147 (EDGARD 09) K L 3.4 (EDGARD 12) 3.6 (EDGARD 11) 3.5 (EDGARD 10) L 3.3 (EDGARD 09) Cl 112 (EDGARD 12) H 113 (EDGARD 11) H 114 (EDGARD 10) 112 (EDGARD 09) CO2 28 (EDGARD 12) 29 (EDGARD 11) 28 (EDGARD 10) 29 (EDGARD 09) BUN H 39 (EDGARD 12) H 36 (EDGARD 11) H 29 (EDGARD 10) H 30 (EDGARD 09) Cr H 1.40 (EDGARD 12) H 1.50 (EDGARD 11) H 1.50 (EDGARD 10) H 1.50 (EDGARD 09) Glu R 93 (EDGARD 12) 93 (EDGARD 11) 80 (EDGARD 10) 79 (SEP 11) Ca L 8.2 (SEP 14) L 8.2 (SEP 13) 8.4 (SEP 12) 8.5 (SEP 11) AST 14 (SEP 12) 11 (SEP 09) ALT L 7 (SEP 12) L 8 (SEP 09) ALK P 95 (SEP 12) 77 (SEP 09) T Bili 0.5 (SEP 12) 0.8 (SEP 09) PTN L 4.8 (SEP 12) L 5.4 (SEP 09) ALB L 2.6 (SEP 12) L 3.3 (SEP 09) *labs (PowerNote only) [...] failure- Possible secondary to ATN from sepsis. improving. -morbidy obesity --Anemia-stable. no signs of active bleeding on exam --infected PICC line- s/p PICC removal 08/31. s/p groshong cath placement --diarrhea-we'll need to monitor. Added probiotic. improved. unlikely C diff -nausea- with daptomycin Plan: 1. stop daptomycin today 2. start IV vancomycin with PK dosing consultation and close monitoring of renal function. Anticipated stop date is 10/05/18. 3 Weekly Groshong catheter dressing changes. 4. Weekly CBC with differential, CMP, ESR, CRP, and CPK. 5. Could switch the patient to OPAT through [facility] when she is discharged from LTAC/rehabilitation facility. 6. added probiotic I discussed with her today Electronically signed by Aleks [facility] Conversion Corn Detasseler Cerner at 07/24/2022 3:58 PM CDT documented in this encounter Plan of Treatment Not on file documented as of this encounter Visit Diagnoses Not on filedocumented in this encounter Care Teams Senior Systems Engineer Relationship Specialty Start Date End Date Juan José Kendall MD [address] [place] [id number] PCP - General Family Medicine 12/25/22 Juan José Kendall MD [address] [place] [address] Referring Physician Family Medicine 12/25/22 documented as of this encounter
--- OUTSIDE RECORDS SUMMARY | 2024-03-11 09:19 | XMS_ITS | Encounter Summary ---
Author Organization [employer] Address [address] [place] [address] Care Team Providers Care Hearing Instrument Specialist Name Role Phone Juan José Kendall MD Primary Care Provider + [phone] Juan José Kendall MD Unavailable [phone] Encounter Details Date Type Department Care Team (Late st Contact Info) Description 09/14/2018 Transcribed Document [facility] [place] [address] ProviderLaurie MD [address] [place] [address] Social History Tobacco Use Types Packs/Day Years Used Date Smoking Tobacco: Never Assessed Comments Unknown Sex and Gender Information Value Date Recorded Sex Assigned at Not on file Legal Sex Female 2:23 PM CDT Gender Identity Not on file Sexual Orientation Not on file documented as of this encounter Miscellaneous Notes * Cerner Conversion Note - Historical ProviderMD - 09/14/2018 5:00 PM CDT Chart Check - Review Order Profile Entered On: 09/14/2018 18:31 EDT Performed On: 09/14/2018 17:00 EDT by Emily Fox RN Chart Check Powerplans Initiated/Discontinued as Appropriate : Yes All Active Orders Reviewed : Yes Emily Fox RN - 09/14/2018 18:31 EDT documented in this encounter Plan of Treatment Not on file documented as of this encounter Visit Diagnoses Not on filedocumented in this encounter Care Teams Hearing Instrument Specialist Relationship Specialty Start Date End Date Juan José Kendall MD [address] [place] [phone] PCP - General Family Medicine 12/25/22 Juan José Kendall MD [address] [place] [phone] Referring Physician Family Medicine 12/25/22 documented as of this encounter
--- OUTSIDE RECORDS SUMMARY | 2024-03-11 09:19 | XMS_ITS | Encounter Summary ---
Author Organization [employer] Address [address] [address] Care Team Providers Care Pharmacy District Manager Name Role Phone Juan José Kendall MD Primary Care Provider +- [phone] Juan José Kendall MD Unavailable [phone] Encounter Details Date Type Department Care Team (Late st Contact Info) Description 09/13/2018 Transcribed Document [facility] [place] Family Medicine [facility] [place] [address] ProviderLaurie MD [address] [place] [id number] Social History Tobacco Use Types Packs/Day Years Used Date Smoking Tobacco: Never Assessed Comments Unknown Sex and Gender Information Value Date Recorded Sex Assigned at Not on file Legal Sex Female 2:23 PM CDT Gender Identity Not on file Sexual Orientation Not on file documented as of this encounter Miscellaneous Notes * Cerner Conversion Note - Historical ProviderMD - 09/13/2018 9:00 AM CDT Pain Assessment Entered On: 09/13/2018 10:21 EDT Performed On: 09/13/2018 10:07 EDT by ENOCH PERDOMO LPN Intervention Information: acetaminophen Performed by ENOCH PERDOMO LPN on 09/13/2018 09:07:00 EDT acetaminophen,500mg Oral Pain Assessment Pain Assessment : Follow-up assessment Pain Scale Goal : 3 Pain Scale Used : 0-10 Scale Location : Leg, left ENOCH EPRDOMO LPN - 09/13/2018 10:21 EDT Pain Scale Intensity : 0 ENOCH PERDOMO LPN - 09/13/2018 10:21 EDT Image 4 - Images currently included in the form version of this document have not been included in the text rendition version of the form. documented in this encounter Plan of Treatment Not on file documented as of this encounter Visit Diagnoses Not on filedocumented in this encounter Care Teams Pharmacy District Manager Relationship Specialty Start Date End Date Juan José Kendall MD [address] [facility] [address] [place] [address] PCP - General Family Medicine 12/25/22 [place] [address] [place] [address] [address] [place] [address] Referring Physician Family Medicine 12/25/22 documented as of this encounter
--- OUTSIDE RECORDS SUMMARY | 2024-03-11 09:19 | XMS_ITS | Encounter Summary ---
Author Organization [employer] Address [address] [place] [address] Care Team Providers Care Frame Stripper And Crusher Name Role Phone Juan José Kendall MD Primary Care Provider +- [phone] Juan José Kendall MD Unavailable [phone] Encounter Details Date Type Department Care Team (Late st Contact Info) Description 09/14/2018 Transcribed Document [facility] [place] [facility] [place] [address] ProviderLaurie MD [address] [place] [address] Social History Tobacco Use Types Packs/Day Years Used Date Smoking Tobacco: Never Assessed Comments Unknown Sex and Gender Information Value Date Recorded Sex Assigned at Not on file Legal Sex Female 2:23 PM CDT Gender Identity Not on file Sexual Orientation Not on file documented as of this encounter Miscellaneous Notes * Cerner Conversion Note - Laurie ProviderMD - 09/14/2018 10:16 AM CDT Interdisciplinary Rounds Entered On: 09/14/2018 10:18 EDT Performed On: 09/14/2018 10:16 EDT by Kentrell Coker Administration Interdisciplinary Rounds Patient's Priority Needs : IV antibotics. Wound vac to L knee incision due to drainage. L knee immobilizer in place. Wound to L heel. Interdisciplinary Rounds Participants : Dietitian, Registered nurse Renate Wilson RN - 09/20/2018 16:25 EDT Notes to Care Team : Regular diet Ensure Enlive BID, Simón BID 60% intake LBM 09/14 Kentrell Coker Administration - 09/14/2018 10:16 EDT documented in this encounter Plan of Treatment Not on file documented as of this encounter Visit Diagnoses Not on filedocumented in this encounter Care Teams Frame Stripper And Crusher Relationship Specialty Start Date End Date Juan José Kendall MD [address] [facility] [address] [place] [phone] PCP - General Family Medicine 12/25/22 Juan José Kendall MD [address] [facility] [address] [place] [phone] Referring Physician Family Medicine 12/25/22 documented as of this encounter
--- OUTSIDE RECORDS SUMMARY | 2024-03-11 09:19 | XMS_ITS | Encounter Summary ---
Author Organization [employer] Address [address] [place] [address] Care Team Providers Care Customer Facilities Supervisor Name Role Phone Juan José Kendall MD Primary Care Provider +- [phone] Juan José Kendall MD Unavailable [phone] Encounter Details Date Type Department Care Team (Late st Contact Info) Description 09/17/2018 Transcribed Document [facility] [place] [facility] [place] [address] ProviderLaurie MD [address] [place] [address] Social History Tobacco Use Types Packs/Day Years Used Date Smoking Tobacco: Never Assessed Comments Unknown Sex and Gender Information Value Date Recorded Sex Assigned at Not on file Legal Sex Female 2:23 PM CDT Gender Identity Not on file Sexual Orientation Not on file documented as of this encounter Miscellaneous Notes * Cerner Conversion Note - Historical ProviderMD - 09/17/2018 2:00 AM CDT Weather Algorithm Scientist Details Entered On: 09/17/2018 1:40 EDT Performed On: 09/17/2018 2:00 EDT by Kelly Deng, RN Order [...] Line : No Kelly Deng, RN - 09/17/2018 1:40 EDT Electronically signed by Aleks [facility] Conversion Clinical Trials Systems Administrator Cerner at 07/24/2022 3:46 PM CDT documented in this encounter Plan of Treatment Not on file documented as of this encounter Visit Diagnoses Not on filedocumented in this encounter Care Teams Customer Facilities Supervisor Relationship Specialty Start Date End Date Juan José Kendall MD [address] [facility] [address] [place] [phone] PCP - General Family Medicine 12/25/22 Juan José Kendall MD [address] [facility] [address] [place] [phone] Referring Physician Family Medicine 12/25/22 documented as of this encounter
--- OUTSIDE RECORDS SUMMARY | 2024-03-11 09:19 | XMS_ITS | Encounter Summary ---
Author Organization [employer] Address [address] [place] [address] Care Team Providers Care Human Resources Temp Name Role Phone Juan José Kendall MD Primary Care Provider +- [phone] Juan José Kendall MD Unavailable [phone] Encounter Details Date Type Department Care Team (Late st Contact Info) Description 09/14/2018 Transcribed Document [facility] [place] [facility] [place] [address] ProviderLaurie MD [address] [place] [address] Social History Tobacco Use Types Packs/Day Years Used Date Smoking Tobacco: Never Assessed Comments Unknown Sex and Gender Information Value Date Recorded Sex Assigned at Not on file Legal Sex Female 2:23 PM CDT Gender Identity Not on file Sexual Orientation Not on file documented as of this encounter Miscellaneous Notes * Cerner Conversion Note - Laurie ProviderMD - 09/14/2018 8:27 AM CDT Care Management Assessment/Plan Entered On: 09/14/2018 8:28 EDT Performed On: 09/14/2018 8:27 EDT by PJ NELSON Care Management Note Care Management Note : 09/14/2018 Clinical review faxed to [facility] ([phone]) to request coverage for continued LTACH services. Approval pending. Auth# [id number]. Care Management Note Report : Chuyita Briceno, Clinical Assessment Liaison - 09/09/18 [...] unit or SNF. She [facility] and prefers to use them again if needed. The patient owns a shower chair, BSC and w/c. The patient has never needed a dialysis clinic. The patient has not fallen in the past 3 months. PCP- Dr. Ranjeet [facility]- Orthopedic- Dr. Shay Guerrero [facility] Natalia The patient does wish to return home upon discharge but understands that rehab/SNF may be needed. All papers were explained and signed. No other issues. CM will continue to monitor. Documentation Status Complete : Yes PJ NELSON - 09/14/2018 8:27 EDT Electronically signed by Aleks [facility] Conversion [place] Support Worker Cerner at 07/24/2022 3:37 PM CDT documented in this encounter Plan of Treatment Not on file documented as of this encounter Visit Diagnoses Not on filedocumented in this encounter Care Teams Human Resources Temp Relationship Specialty Start Date End Date Juan José Kendall MD [address] [facility] [address] [place] [phone] PCP - General Family Medicine 12/25/22 Juan José Kendall MD [address] [facility] [address] [place] [phone] Referring Physician Family Medicine 12/25/22 documented as of this encounter
--- OUTSIDE RECORDS SUMMARY | 2024-03-11 09:19 | XMS_ITS | Encounter Summary ---
Author Organization [employer] Address [address] [place] [address] Care Team Providers Care Assembler Bonding Name Role Phone Juan José Kendall MD Primary Care Provider +- [phone] Juan José Kendall MD Unavailable [phone] Encounter Details Date Type Department Care Team (Late st Contact Info) Description 09/14/2018 Transcribed Document [facility] [place] Family [place] [address] ProviderLaurie MD [address] [place] [address] Social History Tobacco Use Types Packs/Day Years Used Date Smoking Tobacco: Never Assessed Comments Unknown Sex and Gender Information Value Date Recorded Sex Assigned at Not on file Legal Sex Female 2:23 PM CDT Gender Identity Not on file Sexual Orientation Not on file documented as of this encounter Miscellaneous Notes * Cerner Conversion Note - Historical ProviderMD - 09/14/2018 2:00 AM CDT Marketing Research Intern Details Entered On: 09/14/2018 2:17 EDT Performed On: 09/14/2018 2:00 EDT by Angy Esqueda Rn Order Details Transport Mode Order Detail : Bed (including specialty) Isolation Precautions Order Detail : Standard Precautions Order Detail : 0 IV Order Detail : 0 Oxygen Order Detail : 0 Nurse Collect Order Detail : 1 Lift/Transfer : Maximal assist Central Line Order Detail : Yes Room Service : Appropriate Angy Esqueda Rn - 09/14/2018 2:17 EDT documented in this encounter Plan of Treatment Not on file documented as of this encounter Visit Diagnoses Not on filedocumented in this encounter Care Teams Assembler Bonding Relationship Specialty Start Date End Date Juan José Kendall MD [address] [facility] [address] [place] [phone] PCP - General Family Medicine 12/25/22 Juan José Kendall MD [address] [facility] [address] [place] [phone] Referring Physician Family Medicine 12/25/22 documented as of this encounter
--- OUTSIDE RECORDS SUMMARY | 2024-03-11 09:19 | XMS_ITS | Encounter Summary ---
Author Organization [employer] Address [address] [place] [address] Care Team Providers Care Surveying Or Spatial Science Technician Name Role Phone Juan José Kendall MD Primary Care Provider +- [phone] Juan José Kendall MD Unavailable [phone] Encounter Details Date Type Department Care Team (Late st Contact Info) Description 09/17/2018 Transcribed Document [facility] [place] [facility] [place] [address] ProviderLaurie MD [address] [place] [id number] Social History Tobacco Use Types Packs/Day Years Used Date Smoking Tobacco: Never Assessed Comments Unknown Sex and Gender Information Value Date Recorded Sex Assigned at Not on file Legal Sex Female 2:23 PM CDT Gender Identity Not on file Sexual Orientation Not on file documented as of this encounter Miscellaneous Notes * Cerner Conversion Note - Historical ProviderMD - 09/17/2018 4:07 PM CDT Patient: TRUDI BLAIR Age: 63 years Sex: Female : 1955 Associated Diagnoses: None Author: Iliana Jovel, Pharmacist-Resident Consult: vancomycin Consulting physician: Dr. Tavares Indication: [...] 139.5 kg DBW: 91.2 kg Labs: SEP 17 04:32 H 147 H 116 H 35 / 97 3.5 25 H 1.20 \ Allergies: biaxin I/O: 652 / 3 voids Estimated CrCl: 55-60 mL/min Vitals Signs (last 24 hrs) Last Charted Minimum Maximum Temp 98.7 (EDGARD 15 16:02) 98.7 (EDGARD 15 16:02) 99.1 (EDGARD 14 19:00) Apical HR 78 (EDGARD 15 16:02) 70 (EDGARD 15 09:47) 78 (EDGARD 15 16:02) Mon HR 78 (EDGARD 15 16:02) 77 (EDGARD 15 07:00) 84 (EDGARD 14 23:00) Resp Rate 18 (EDGARD 15 16:02) 15 (EDGARD 15 07:00) 18 (EDGARD 15 16:02) SBP H 161 (EDGARD 15 16:02) 132 (EDGARD 14 23:00) H 161 (EDGARD 15 16:02) DBP 79 (EDGARD 15 16:02) L 54 (EDGARD 14 23:00) 79 (EDGARD 15 16:02) MAP 73 (EDGARD 14 23:00) 73 (EDGARD 14 23:00) 73 (EDGARD 14 23:00) SpO2 98 (SEP 15 07:00) 95 (EDGARD 14 23:00) 98 (EDGARD 15 07:00) Cultures: 08/10 blood: MRSA 08/10 urine: Enterococcus 08/19 blood: Enterococcus (vanc S) 08/19 L leg wound: S. epi, MRSA Current antibiotics: Vancomycin 1250mg IV q24h (start date 09/14, 09/17 = day 4) Previous antibiotics: Ceftriaxone (08/30-09/02) Ertapenem (08/30-08/31) Daptmycin (08/30-09/14) Vancomycin dosing history: Vancomycin 1250mg IV q24h ----> 19.3mcg/mL (drawn on time) A/P: 1. Vancomycin trough = 19.3mcg/mL (~24 hr level) on vancomycin 1250mg (~9mg/kg) IV q24h -Nurse already hung tonights Vancomycin @ 1556. Will decrease to Vancomycin 1000mg (~7mg/kg) IV q24h to start tomorrow night @ 1500 -Will place in D5W due to slightly elevated Na today (147) -Reassess trough prior to third dose of new regimen. Patient likely to continue to accumulate Vancomycin due to body weight (BMI = 49.7kg/m2) 2. Monitor renal function closely. Some ongoing PILY attributed to sepsis from admission. BMP at least twice weekly on vancomycin. SCr remains 1.4-1.6 since at [facility]. 3. Abx planned until 10/05 per ID. 4. Pharmacy will continue to follow. Thank you for your consult. Iliana Jovel, PharmD PGY1 Investor Relations Director [phone] Electronically signed by Blayne Fink Conversion Health Sciences Department Chair Cerner at 07/24/2022 3:41 PM CDT documented in this encounter Plan of Treatment Not on file documented as of this encounter Visit Diagnoses Not on filedocumented in this encounter Care Teams Surveying Or Spatial Science Technician Relationship Specialty Start Date End Date Juan José Kendall MD [facility] [facility] [address] [place] [phone] PCP - General Family Medicine 12/25/22 Juan José Kendall MD [facility] [facility] [address] [place] [phone] Referring Physician Family Medicine 12/25/22 documented as of this encounter
--- OUTSIDE RECORDS SUMMARY | 2024-03-11 09:19 | XMS_ITS | Encounter Summary ---
Author Organization [employer] Address [address] [facility] [facility] [place] [address] Care Team Providers Care Anesthesiology Tech Name Role Phone Juan José Kendall MD Primary Care Provider +- [phone] Juan José Kendall MD Unavailable [phone] Encounter Details Date Type Department Care Team (Late st Contact Info) Description 09/15/2018 Transcribed Document [facility] [place] [facility] [place] [address] ProviderLaurie MD [address] [place] [address] [id number] Social History Tobacco Use Types Packs/Day Years Used Date Smoking Tobacco: Never Assessed Comments Unknown Sex and Gender Information Value Date Recorded Sex Assigned at Not on file Legal Sex Female 2:23 PM CDT Gender Identity Not on file Sexual Orientation Not on file documented as of this encounter Miscellaneous Notes * Cerner Conversion Note - Historical ProviderMD - 09/15/2018 3:00 PM CDT Pain Assessment Entered On: 09/15/2018 15:24 EDT Performed On: 09/15/2018 15:52 EDT by ENOCH PERDOMO LPN Intervention Information: acetaminophen Performed by ENOCH PERDOMO LPN on 09/15/2018 14:52:00 EDT acetaminophen,500mg Oral Pain Assessment Pain Assessment : Follow-up assessment Pain Scale Goal : 3 Pain Scale Used : 0-10 Scale Location : Leg, left ENOCH PERDOMO LPN - 09/15/2018 15:24 EDT Pain Scale Intensity : 8 ENOCH PERDOMO LPN - 09/15/2018 15:24 EDT Image 4 - Images currently included in the form version of this document have not been included in the text rendition version of the form. documented in this encounter Plan of Treatment Not on file documented as of this encounter Visit Diagnoses Not on filedocumented in this encounter Care Teams Anesthesiology Tech Relationship Specialty Start Date End Date Juan José Kendall MD [address] [facility] [address] [place] [address] PCP - General Family Medicine 12/25/22 [place] [address] [place] [address] [address] [place] [address] Referring Physician Family Medicine 12/25/22 documented as of this encounter
--- OUTSIDE RECORDS SUMMARY | 2024-03-11 09:19 | XMS_ITS | Encounter Summary ---
Author Organization [employer] Address [address] [place] [address] Care Team Providers Care Practical Nurse Name Role Phone Juan José Kendall MD Primary Care Provider + [phone] Juan José Kendall MD Unavailable [phone] Encounter Details Date Type Department Care Team (Late st Contact Info) Description 09/15/2018 Transcribed Document [facility] [place] [facility] [place] [address] ProviderLaurie MD [address] [place] [address] Social History Tobacco Use Types Packs/Day Years Used Date Smoking Tobacco: Never Assessed Comments Unknown Sex and Gender Information Value Date Recorded Sex Assigned at Not on file Legal Sex Female 2:23 PM CDT Gender Identity Not on file Sexual Orientation Not on file documented as of this encounter Miscellaneous Notes * Cerner Conversion Note - Historical ProviderMD - 09/15/2018 9:00 PM CDT Patch Check Entered On: 09/16/2018 1:07 EDT Performed On: 09/15/2018 21:00 EDT by Linh Honeycutt RN Patch Check Patch Check Result : Yes Patch Check - Type of Patch : scopolamine (Transderm-Scop) Patch Check - Location : Right Ear Linh Honeycutt RN - 09/16/2018 1:06 EDT documented in this encounter Plan of Treatment Not on file documented as of this encounter Visit Diagnoses Not on filedocumented in this encounter Care Teams Practical Nurse Relationship Specialty Start Date End Date Juan José Kendall MD [address] [place] [address] PCP - General Family Medicine 12/25/22 Juan José Kendall MD [address] [place] [address] Referring Physician Family Medicine 12/25/22 documented as of this encounter
--- OUTSIDE RECORDS SUMMARY | 2024-03-11 09:19 | XMS_ITS | Encounter Summary ---
Author Organization [employer] Address [address] [place] [address] Care Ct Scan Special Procedures Technologist Name Role Phone Juan José Kendall MD Primary Care Provider +- [phone] Juan José Kendall MD Unavailable [phone] Encounter Details Date Type Department Care Team (Late st Contact Info) Description 09/14/2018 Transcribed Document [facility] [place] [address] ProviderLaurie MD [address] [place] [address] [id number] Social History Tobacco Use Types Packs/Day Years Used Date Smoking Tobacco: Never Assessed Comments Unknown Sex and Gender Information Value Date Recorded Sex Assigned at Not on file Legal Sex Female 2:23 PM CDT Gender Identity Not on file Sexual Orientation Not on file documented as of this encounter Miscellaneous Notes * Cerner Conversion Note - Laurie ProviderMD - 09/14/2018 3:00 AM CDT Pain Assessment Entered On: 09/14/2018 18:31 EDT Performed On: 09/14/2018 8:00 EDT by Emily Fox RN Intervention Information: acetaminophen Performed by Angy Esqueda Rn on 09/14/2018 03:52:00 EDT acetaminophen,500mg Oral Pain Assessment Pain Assessment : Follow-up assessment Pain Scale Goal : 3 Pain Scale Used : 0-10 Scale Emily Fox RN - 09/14/2018 18:31 EDT Pain Scale Intensity : 2 Emily Fox RN - 09/14/2018 18:31 EDT Image 4 - Images currently included in the form version of this document have not been included in the text rendition version of the form. documented in this encounter Plan of Treatment Not on file documented as of this encounter Visit Diagnoses Not on filedocumented in this encounter Care Teams Ct Scan Special Procedures Technologist Relationship Specialty Start Date End Date Juan José Kendall MD [address] [facility] [address] [place] [address] PCP - General Family Medicine 12/25/22 Juan José Kendall MD [address] [facility] [address] [place] [address] Referring Physician Family Medicine 12/25/22 documented as of this encounter
--- OUTSIDE RECORDS SUMMARY | 2024-03-11 09:19 | XMS_ITS | Encounter Summary ---
Author Organization [employer] Address [address] [place] [address] Care Team Providers Care Medical Specialist Name Role Phone Juan José Kendall MD Primary Care Provider +- [phone] Juan José Kendall MD Unavailable [phone] Encounter Details Date Type Department Care Team (Late st Contact Info) Description 09/13/2018 Transcribed Document [facility] [place] Family Medicine [facility] [place] [address] ProviderLaurie MD [address] [place] [address] Social History Tobacco Use Types Packs/Day Years Used Date Smoking Tobacco: Never Assessed Comments Unknown Sex and Gender Information Value Date Recorded Sex Assigned at Not on file Legal Sex Female 2:23 PM CDT Gender Identity Not on file Sexual Orientation Not on file documented as of this encounter Miscellaneous Notes * Cerner Conversion Note - Historical ProviderMD - 09/13/2018 2:00 AM CDT Dock Clerk Details Entered On: 09/13/2018 2:31 EDT Performed On: 09/13/2018 2:00 EDT by Linh Honeycutt RN Order Details Transport Mode Order Detail : Bed (including specialty) Isolation Precautions Order Detail : Standard Precautions Order Detail : 0 Oxygen Order Detail : 0 Nurse Collect Order Detail : 1 Lift/Transfer : Maximal assist Central Line Order Detail : Yes Room Service : Appropriate Linh Honeycutt RN - 09/13/2018 2:30 EDT documented in this encounter Plan of Treatment Not on file documented as of this encounter Visit Diagnoses Not on filedocumented in this encounter Care Teams Medical Specialist Relationship Specialty Start Date End Date Juan Joés Kendall MD [address] [facility] [address] [place] [address] PCP - General Family Medicine 12/25/22 Juan José Kendall MD [facility] [place] [address] [place] [address] Referring Physician Family Medicine 12/25/22 documented as of this encounter
--- OUTSIDE RECORDS SUMMARY | 2024-03-11 09:19 | XMS_ITS | Encounter Summary ---
Author Organization [employer] Address [address] [place] [address] Care Team Providers Care Driver'S License Reviewing Officer Name Role Phone Juan José Kendall MD Primary Care Provider +- [phone] Juan José Kendall MD Unavailable [phone] Encounter Details Date Type Department Care Team (Late st Contact Info) Description 09/14/2018 Transcribed Document [facility] [place] [address] ProviderLaurie MD [address] [place] [id number] Social History Tobacco Use Types Packs/Day Years Used Date Smoking Tobacco: Never Assessed Comments Unknown Sex and Gender Information Value Date Recorded Sex Assigned at Not on file Legal Sex Female 2:23 PM CDT Gender Identity Not on file Sexual Orientation Not on file documented as of this encounter Miscellaneous Notes * Cerner Conversion Note - Laurie ProviderMD - 09/14/2018 3:00 PM CDT Pain Assessment Entered On: 09/14/2018 18:31 EDT Performed On: 09/14/2018 16:37 EDT by Emily Fox RN Intervention Information: acetaminophen Performed by Emily Fox RN on 09/14/2018 15:37:00 EDT acetaminophen,500mg Oral Pain Assessment Pain Assessment [...] on filedocumented in this encounter Care Teams Driver'S License Reviewing Officer Relationship Specialty Start Date End Date Juan José Kendall MD [address] [facility] [address] [place] [address] PCP - General Family Medicine 12/25/22 Juan José Kendall MD [address] [facility] [address] [place] [address] Referring Physician Family Medicine 12/25/22 documented as of this encounter
--- OUTSIDE RECORDS SUMMARY | 2024-03-11 09:19 | XMS_ITS | Encounter Summary ---
Author Organization [employer] Address [address] [place] [address] Care Team Providers Care Exhibit Cleaner Name Role Phone Juan José Kendall MD Primary Care Provider +- [phone] Juan José Kendall MD Unavailable [phone] Encounter Details Date Type Department Care Team (Late st Contact Info) Description 09/16/2018 Transcribed Document [facility] [place] [facility] [place] [address] ProviderLaurie MD [address] [place] [address] Social History Tobacco Use Types Packs/Day Years Used Date Smoking Tobacco: Never Assessed Comments Unknown Sex and Gender Information Value Date Recorded Sex Assigned at Not on file Legal Sex Female 2:23 PM CDT Gender Identity Not on file Sexual Orientation Not on file documented as of this encounter Miscellaneous Notes * Cerner Conversion Note - Laurie Garcia MD - 09/16/2018 9:00 PM CDT Patient: TRUDI BLAIR Age: 63 [...] pain under control, no trouble w. urination. -Has diarrhea back again -Antibiotics had been changed -discussed with -will start pt on cholestyramine -renal function continue to improve Review of Systems Constitutional: No fever, No [...] 20 mg 1 Tab, Oral, At Bedtime collagenase 250 unit/1 g oint 2 g 1 Application, Topical, Daily heparin 5,000 units/1 mL inj 5,000 Units 1 mL, SubCutaneous, Q8HInt metoclopramide 10 mg tab 10 mg 1 Tab, Oral, BID metoprolol tartrate 25 mg tab 25 mg 1 Tab, Oral, Daily ondansetron 4 mg/2 mL inj 4 mg 2 mL, IV Push, [id number] pantoprazole EC 40 mg tab 40 mg 1 Tab, Oral, Daily potassium chloride CR 20 mEq tab 20 mEq 1 Tab, Oral, BID saccharomyces boulardii 250 mg cap 250 mg 1 Cap, Oral, Daily scopolamine 1.5 mg/72 hr patch 1 Patch, TransDermal, Q3Days topiramate 25 mg sprinkle cap 25 mg 1 Cap, Oral, BID vancomycin + NaCl 0.9% 250 mL 1,250 mg, IV Piggyback, [id number] Continuous: (0) PRN: (21) acetaminophen 325 mg [...] Stress incontinence Physical Examination VS/Measurements Vital Measurements 09/16/2018 19:00 EDT Systolic Blood Pressure 139 mmHg Diastolic Blood Pressure 61 mmHg Temperature Source Oral Temperature Mode Fahrenheit Temperature, Fahrenheit 99.1 Deg F Clinical Temperature, C 37.3 Deg C Heart Rate Monitored 80 bpm Respiratory Rate [...] Review / Management Results review: All Results 09/16/2018 5:29 EDT Sodium Level 145 mmol/L Potassium Level 3.4 mmol/L LOW Chloride Level 114 mmol/L HI Carbon Dioxide Level 25 mmol/L Anion Gap 9 Glucose Level 95 mg/dL Blood Urea Nitrogen 39 mg/dL HI Creatinine Level 1.20 mg/dL HI eGFR 55 mL/min/1.73m2 LOW eGFR NonAfrican 45 mL/min/1.73m2 LOW Bun/Creatinine 32.5 HI Calcium Level 8.1 mg/dL LOW Protein Total 5.0 Gram/dL LOW Albumin Level 2.3 Gram/dL LOW Globulin 2.7 Gram/dL A/G Ratio 0.9 LOW Bilirubin Total 0.7 mg/dL Alk Phos 127 Units/Liter AST 14 Units/Liter ALT 8 Units/Liter LOW WBC 7.0 K/uL RBC 2.87 Million/uL LOW Hgb 8.6 g/dL LOW Hct 27.2 % LOW MCV 94.8 fL MCH 30.0 pg MCHC 31.6 Gram/dL LOW Platelet Count 197 K/uL MPV 11.3 fL RDW 18.6 % HI Neut % 66.5 % Neut # 4.63 K/uL Lymph % 17.5 % LOW Lymph # 1.22 x10(3)/uL [place] % 9.8 % HI [place] # 0.68 K/uL Eos % 4.6 % Eos # 0.32 x10(3)/uL Baso % 0.9 % Baso # 0.06 x10(3)/uL Slide Review No IG# 0.05 x10(3)/uL IG% 0.70 % HI 09/15/2018 4:36 EDT Sodium Level 146 mmol/L Potassium Level 3.5 mmol/L Chloride Level 113 mmol/L HI Carbon Dioxide Level 26 mmol/L Anion Gap 10 Glucose Level 87 mg/dL Blood Urea Nitrogen 41 mg/dL HI Creatinine Level 1.30 mg/dL HI eGFR 50 mL/min/1.73m2 LOW eGFR NonAfrican 41 mL/min/1.73m2 LOW Bun/Creatinine 31.5 HI Calcium Level 8.3 mg/dL LOW CK 32 Units/Liter . Impression and Plan Diagnosis Left prosthetic [...] and urine output. cont on IV antibiotics as recommended by ID.start cholestiramine for diarrhea.close monitoring fluid & electrolytes ,DVT prophylaxis. Electronically signed by Aleks [facility] Conversion Cosmetic Sales Consultant Cer[employer] at 07/24/2022 3:50 PM CDT documented in this encounter Plan of Treatment Not on file documented as of this encounter Visit Diagnoses Not on filedocumented in this encounter Care Teams Exhibit Cleaner Relationship Specialty Start Date End Date Juan [...]
--- OUTSIDE RECORDS SUMMARY | 2024-03-11 09:19 | XMS_ITS | Encounter Summary ---
Author Organization [employer] Address [address] [place] [address] Care Team Providers Care Coverstitch Machine Operator Name Role Phone Juan José Kendall MD Primary Care Provider +- [phone] Juan José Kendall MD Unavailable [phone] Encounter Details Date Type Department Care Team (Late st Contact Info) Description 09/15/2018 Transcribed Document [facility] [place] Family Medicine [facility] [place] [address] ProviderLaurie MD [address] [place] [address] [id number] Social History Tobacco Use Types Packs/Day Years Used Date Smoking Tobacco: Never Assessed Comments Unknown Sex and Gender Information Value Date Recorded Sex Assigned at Not on file Legal Sex Female 2:23 PM CDT Gender Identity Not on file Sexual Orientation Not on file documented as of this encounter Miscellaneous Notes * Cerner Conversion Note - Historical ProviderMD - 09/15/2018 3:00 AM CDT Pain Assessment Entered On: 09/15/2018 10:28 EDT Performed On: 09/15/2018 7:45 EDT by ENOCH PERDOMO LPN Intervention Information: acetaminophen Performed by Angy Esqueda Rn on 09/15/2018 06:45:00 EDT acetaminophen,500mg Oral Pain Assessment Pain Assessment : Follow-up assessment Pain Scale Goal : 3 Pain Scale Used : 0-10 Scale Location : Knee, left ENOCH PERDOMO LPN - 09/15/2018 10:28 EDT Pain Scale Intensity : 0 ENOCH PERDOMO LPN - 09/15/2018 10:28 EDT Image 4 - Images currently included in the form version of this document have not been included in the text rendition version of the form. documented in this encounter Plan of Treatment Not on file documented as of this encounter Visit Diagnoses Not on filedocumented in this encounter Care Teams Coverstitch Machine Operator Relationship Specialty Start Date End Date Juan José Kendall MD [address] [place] [address] [address] [place] [address] PCP - General Family Medicine 12/25/22 Juan José Kendall MD [address] [place] [address] [address] [place] [address] Referring Physician Family Medicine 12/25/22 documented as of this encounter
--- OUTSIDE RECORDS SUMMARY | 2024-03-11 09:19 | XMS_ITS | Encounter Summary ---
Author Organization [employer] Address [address] [place] [address] Care Team Providers Care Quality Control Head Name Role Phone Juan José Kendall MD Primary Care Provider + [phone] Juan José Kendall MD Unavailable [phone] Encounter Details Date Type Department Care Team (Late st Contact Info) Description 09/17/2018 Transcribed Document [facility] [place] [address] ProviderLaurie MD [address] [place] [address] Social History Tobacco Use Types Packs/Day Years Used Date Smoking Tobacco: Never Assessed Comments Unknown Sex and Gender Information Value Date Recorded Sex Assigned at Not on file Legal Sex Female 2:23 PM CDT Gender Identity Not on file Sexual Orientation Not on file documented as of this encounter Miscellaneous Notes * Cerner Conversion Note - Historical ProviderMD - 09/17/2018 5:00 PM CDT Chart Check - Review Order Profile Entered On: 09/17/2018 16:58 EDT Performed On: 09/17/2018 17:00 EDT by Bambi Rolon Rn Chart Check Powerplans Initiated/Discontinued as Appropriate : Yes All Active Orders Reviewed : Yes Bambi Rolon Rn - 09/17/2018 16:58 EDT documented in this encounter Plan of Treatment Not on file documented as of this encounter Visit Diagnoses Not on filedocumented in this encounter Care Teams Quality Control Head Relationship Specialty Start Date End Date Juan José Kendall MD [address] [place] [address] PCP - General Family Medicine 12/25/22 Juan José Kendall MD [address] [place] [address] Referring Physician Family Medicine 12/25/22 documented as of this encounter
--- OUTSIDE RECORDS SUMMARY | 2024-03-11 09:19 | XMS_ITS | Encounter Summary ---
Author Organization [employer] Address [address] [place] [address] Care Team Providers Care Director Of Restaurant Operations Name Role Phone Juan José Kendall MD Primary Care Provider + [phone] Juan José Kendall MD Unavailable [phone] Encounter Details Date Type Department Care Team (Late st Contact Info) Description 09/13/2018 Transcribed Document [facility] [place] [facility] [place] [address] ProviderLaurie MD [address] [place] [address] Social History Tobacco Use Types Packs/Day Years Used Date Smoking Tobacco: Never Assessed Comments Unknown Sex and Gender Information Value Date Recorded Sex Assigned at Not on file Legal Sex Female 2:23 PM CDT Gender Identity Not on file Sexual Orientation Not on file documented as of this encounter Miscellaneous Notes * Cerner Conversion Note - Historical ProviderMD - 09/13/2018 6:00 PM CDT Patch Check Entered On: 09/13/2018 17:38 EDT Performed On: 09/13/2018 18:00 EDT by ENOCH PERDOMO LPN Patch Check Patch Check Result : Yes Patch Check - Type of Patch : scopolamine (Transderm-Scop) ENOCH PERDOMO LPN - 09/13/2018 17:38 EDT documented in this encounter Plan of Treatment Not on file documented as of this encounter Visit Diagnoses Not on filedocumented in this encounter Care Teams Director Of Restaurant Operations Relationship Specialty Start Date End Date Juan José Kendall MD [address] [place] [address] PCP - General Family Medicine 12/25/22 Juan José Kendall MD [address] [place] [address] Referring Physician Family Medicine 12/25/22 documented as of this encounter
--- OUTSIDE RECORDS SUMMARY | 2024-03-11 09:19 | XMS_ITS | Encounter Summary ---
Author Organization [employer] Address [address] [place] [address] Care Team Providers Care Monkey Trainer Name Role Phone Juan José Kendall MD Primary Care Provider +- [phone] Juan José Kendall MD Unavailable [phone] Encounter Details Date Type Department Care Team (Late st Contact Info) Description 09/15/2018 Transcribed Document [facility] [place] Family [place] [facility] [place] [address] ProviderLaurie MD [address] [place] [id number] Social History Tobacco Use Types Packs/Day Years Used Date Smoking Tobacco: Never Assessed Comments Unknown Sex and Gender Information Value Date Recorded Sex Assigned at Not on file Legal Sex Female 2:23 PM CDT Gender Identity Not on file Sexual Orientation Not on file documented as of this encounter Miscellaneous Notes * Cerner Conversion Note - Historical ProviderMD - 09/15/2018 5:34 PM CDT Patient: TRUDI BLAIR Age: 63 [...] repair. She was more recently admitted to [facility] x2 earlier this month on 08/16 [...] getting wound care. She was transferred to [facility] today for a higher [...] new rash. Wound VAC remains in place. ROS: As above Past Medical History: Arthritis Back pain GERD HLD NUVIA HTN Stress incontinence Past Surgical History: Left TKA, 2017 left patellar tendon repair, 06/2018 lumbar fusion hysterectomy right TKA right patellar tendon repair Family History: CAD HTN Cancer Social History: . lives in [place]. No tobacco, ETOH, or illicit drug use. Social & Psychosocial Habits Alcohol 06/23/2018 Alcohol Use History, Social Habits No Substance Abuse 06/23/2018 Recreational Drug Use History No Tobacco 06/23/2018 Smoking Status Never (less than 100 in l Smokeless Tobacco Status Never Objective: Vitals Signs (last 24 hrs) Last Charted Minimum Maximum Temp 98.2 (SEP 15 07:00) 98.2 (SEP 15:) 98.4 (SEP 14:00) Apical HR 64 (SEP 15:) 64 (SEP 15:) 64 (SEP 15:) Mon HR 64 (SEP 15:00) 64 (SEP 15:00) 81 (SEP 14:) Resp Rate 20 (SEP 15 07:00) 16 (SEP 14:00) 20 (SEP 15:) SBP 139 (SEP 15 09:01) 125 (SEP 14 23:00) H 149 (SEP 14:00) DBP 62 (SEP 15 09:01) 62 (SEP 15 07:00) 70 (SEP 14 19:00) SpO2 98 (SEP 15 07:00) L 93 (SEP 14:00) 100 (SEP 14 23:00) PE: General: patient is alert and [...] 08) 321 (EDGARD 07) Na 146 (EDGARD 13) 146 (EDGARD 12) 146 (EDGARD 11) H 147 (EDGARD 10) K 3.5 (EDGARD 13) L 3.4 (EDGARD 12) 3.6 (EDGARD 11) 3.5 (EDGARD 10) Cl H 113 (EDGARD 13) 112 (DEGARD 12) H 113 (EDGARD 11) H 114 (EDGARD 10) CO2 26 (EDGARD 13) 28 (EDGARD 12) 29 (EDGARD 11) 28 (EDGARD 10) BUN H 41 (EDGARD 13) H 39 (EDGARD 12) H 36 (EDGARD 11) H 29 (EDGARD 10) Cr H 1.30 (EDGARD 13) H 1.40 (EDGARD 12) H 1.50 (EDGARD 11) H 1.50 (EDGARD 10) Glu R 87 (EDGARD 13) 93 (EDGARD 12) 93 (EDGARD 11) 80 (EDGARD 10) Ca L 8.3 (EDGARD 13) L 8.2 (EDGARD 12) L 8.2 (EDGARD 11) 8.4 (EDGARD 10) AST 14 (EDGARD 10) 11 (EDGARD 07) ALT L 7 (EDGARD 10) L 8 (EDGARD 07) ALK P 95 (EDGARD 10) 77 (EDGARD 07) T Bili 0.5 (EDGARD 10) 0.8 (EDGARD 07) PTN L 4.8 (EDGARD 10) L 5.4 (EDGARD 07) ALB L 2.6 (EDGARD 10) L 3.3 (EDGARD 07) *labs (PowerNote only) in insert template [...] is discharged from LTAC/rehabilitation facility. 5. probiotic I discussed with her today Electronically signed by Aleks [facility] Conversion Silo Filler Cerner at 07/24/2022 3:58 PM CDT documented in this encounter Plan of Treatment Not on file documented as of this encounter Visit Diagnoses Not on filedocumented in this encounter Care Teams Monkey Trainer Relationship Specialty Start Date End Date Juan José Kendall MD [address] [place] [address] PCP - General Family Medicine 12/25/22 Juan José Kendall MD [address] [place] [address] Referring Physician Family Medicine 12/25/22 documented as of this encounter
--- OUTSIDE RECORDS SUMMARY | 2024-03-11 09:19 | XMS_ITS | Encounter Summary ---
Author Organization [employer] Address [address] [place] [address] Care Team Providers Care Care Coordination Manager Name Role Phone Juan José Kendall MD Primary Care Provider + [phone] Juan José Kendall MD Unavailable [phone] Encounter Details Date Type Department Care Team (Late st Contact Info) Description 09/16/2018 Transcribed Document [facility] [place] [facility] [place] [address] ProviderLaurie MD [address] [place] [address] Social History Tobacco Use Types Packs/Day Years Used Date Smoking Tobacco: Never Assessed Comments Unknown Sex and Gender Information Value Date Recorded Sex Assigned at Not on file Legal Sex Female 2:23 PM CDT Gender Identity Not on file Sexual Orientation Not on file documented as of this encounter Miscellaneous Notes * Cerner Conversion Note - Historical ProviderMD - 09/16/2018 10:[address] [facility] Entered On: 09/16/2018 10:20 EDT Performed On: 09/16/2018 10:15 EDT by BIJAL GALLOWAY, PT [facility] Physical Therapy Screen : 1 BIJAL GALLOWAY, PT - 09/16/2018 10:15 EDT Electronically signed by Adia Fink Conversion Supervisor [employer]rain [employer] Plants Cerner at 07/24/2022 3:31 PM CDT documented in this encounter Plan of Treatment Not on file documented as of this encounter Visit Diagnoses Not on filedocumented in this encounter Care Teams Care Coordination Manager Relationship Specialty Start Date End Date Juan José Kendall MD [address] [place] [id number] PCP - General Family Medicine 12/25/22 Juan José Kendall MD [address] [place] [id number] Referring Physician Family Medicine 12/25/22 documented as of this encounter
--- OUTSIDE RECORDS SUMMARY | 2024-03-11 09:19 | XMS_ITS | Encounter Summary ---
Author Organization [employer] Address [address] [place] [address] Care Team Providers Care Quality Assurance Test Program Manager Name Role Phone Juan José Kendall MD Primary Care Provider + [phone] Juan José Kendall MD Unavailable +[phone] Encounter Details Date Type Department Care Team (Late st Contact Info) Description 09/16/2018 Transcribed Document [facility] [place] [facility] [address] ProviderLaurie MD [address] [place] [address] Social History Tobacco Use Types Packs/Day Years Used Date Smoking Tobacco: Never Assessed Comments Unknown Sex and Gender Information Value Date Recorded Sex Assigned at Not on file Legal Sex Female 2:23 PM CDT Gender Identity Not on file Sexual Orientation Not on file documented as of this encounter Miscellaneous Notes * Cerner Conversion Note - Historical ProviderMD - 09/16/2018 3:00 AM CDT Nutrition Assessment Entered On: 09/16/2018 12:31 EDT Performed On: 09/16/2018 14:28 EDT by Kentrell Coker, Thao Nutrition Assessment Current Nutrition Regimen Comment : 09/16: Attempted to see pt - working with other provider at the time. RN reports pt's nausea/diarrhea has subsided for the last 24+ hours. RN also reported that pt has not complained of her supplements being the wrong flavor and is drinking 100%. Requested pt being weighed to monitor nutrition status- RN agreeable, plans to weigh pt today. 09/12: Per MD note, pt has had nausea and diarrhea but improving. Pt states she is slightly nauseous this am-states she is drinking supplements but continues to receive vanilla ensure and simón orange, though pt would prefer chocolate ensure and fruit punch simón. RD adjusted orders in HT. RD requested new wt-chart discrepancies noted. Dx: sepsis, left prosthetic knee infection, prolonged IV abx PMH: GERD, high cholesterol, HTN, morbid obesity Labs: Na 145, BUN 39, K+ 3.4, Cr 1.2, alb 2.3 Meds: Statin, heparin, Lopressor, pantoprazole, Zofran, KCl, florastor, abx, prn pain Skin: L knee medial +NPWT, bilat medial upper thighs stage 1, left posterior heel stage 1; no edema documented. GI: LBM 09/15, active BS Diet: Regular, Ensure Enlive BID (chocolate @ B+ D), Simón BID Intake: avg 94% x 5 meals Supplement Intake: 100% x 3 Ht: 168cm (5'6) Wt: 140kg/308#, no new wt (09/12), no new wt (09/16) Wt Hx: 265# (06/23), 123kg/270# (08/30/18) BMI: 49.7 IBW/%IBW: 130#/208% Kentrell Coker Administration - 09/16/2018 14:26 EDT Nutrition Assessment Reason : Follow Up Kentrell Coker Administration - 09/16/2018 12:31 EDT Nutrition Diagnoses Nutrient Intake : Increased nutrient needs Nutrient Intake Related to : skin integrity Nutrient Intake As Evidenced by : L knee medial +NPWT, left heel unstageable, bilat medial upper thighs stage 1, left posterior heel stage 2 Nutrient Intake Status : Active Increased Nutrient Needs Comment : protein, kcal Kentrell Coker Administration - 09/16/2018 13:17 EDT Nutrition Interventions Meals and Snacks : General/Healthful diet Meals and Snacks Other Comment : Ensure Enlive, Simón Nutrition Supplement Therapy : Commercial beverage Kentrell Coker Administration - 09/16/2018 13:20 EDT Monitoring/Evaluation Energy Intake : Total energy intake Weight Status : Weight loss Gastrointestinal Function : Bowel Function Integumentary : Wound Status Kentrell Coker Administration - 09/16/2018 13:20 EDT Nutrition Recommendations Dietitian Recommendations : 1. Continue current diet w/ Ensure Enlive and Simón - encourage supplement use. Goal: Po intake>50%, supplement use 2. Obtain wt weekly. Goal: no signficant unintended wt changes, beneficial wt loss encouraged Nutrition Care Level : Kentrell Everett, Administration - 09/16/2018 13:20 EDT Electronically signed by [facility] Conversion Trim Setter Cerner at 07/24/2022 3:46 PM CDT documented in this encounter Plan of Treatment Not on file documented as of this encounter Visit Diagnoses Not on filedocumented in this encounter Care Teams Quality Assurance Test Program Manager Relationship Specialty Start Date End Date Juan José Kendall MD [address] [facility] [address] [place] [id number] PCP - General Family Medicine 12/25/22 Juan José Kendall MD [address] [facility] [address] [place] [id number] Referring Physician Family Medicine 12/25/22 documented as of this encounter
--- OUTSIDE RECORDS SUMMARY | 2024-03-11 09:19 | XMS_ITS | Encounter Summary ---
Author Organization [employer] Address [address] [place] [address] Care Team Providers Care Production Stage Manager Name Role Phone Juan José Kendall MD Primary Care Provider +- [phone] Juan José Kendall MD Unavailable [phone] Encounter Details Date Type Department Care Team (Late st Contact Info) Description 09/14/2018 Transcribed Document [facility] [place] [facility] [place] [address] ProviderLaurie MD [address] [place] [address] Social History Tobacco Use Types Packs/Day Years Used Date Smoking Tobacco: Never Assessed Comments Unknown Sex and Gender Information Value Date Recorded Sex Assigned at Not on file Legal Sex Female 2:23 PM CDT Gender Identity Not on file Sexual Orientation Not on file documented as of this encounter Miscellaneous Notes * Cerner Conversion Note - Historical ProviderMD - 09/14/2018 1:53 PM CDT Patient: TRUDI BLAIR Age: 63 [...] 139.5 kg DBW: 91.2 kg Labs: SEP 14 04:08 146 112 H 39 / 93 L 3.4 28 H 1.40 \ Allergies: biaxin I/O: 546 / x4 voids Estimated CrCl: 55-60 mL/min Vitals: Vitals [...] Rate 18 (SEP 14 07:45) 14 (SEP 11 19:00) 18 (SEP 13 15:36) SBP H 141 (SEP 14 07:45) 136 (SEP 13 23:00) H 141 (SEP 14 07:45) DBP 74 (SEP 14 07:45) L 42 (SEP 13 23:00) 74 (SEP 14 07:45) SpO2 94 (SEP 14 07:45) 94 (SEP 14 07:45) 96 (SEP 13 15:36) Cultures: 08/10 blood: MRSA 08/10 urine: Enterococcus 08/19 blood: Enterococcus (vanc S) 08/19 L leg wound: S. epi, MRSA Current antibiotics: Vancomycin pharmacy to dose Previous antibiotics: Ceftriaxone (08/30-09/02) Ertapenem (08/30-08/31) Daptmycin (08/30-09/14) Vancomycin dosing history: A/P: 1. Start vancomycin 1250mg IV q24h. Use lower weight-based dose in obese pts due to incomplete distribution, higher bloodstream concentrations. Pt has been having nausea with daptomycin infusions. 2. Monitor renal function closely. Some ongoing PILY attributed to sepsis from admission. BMP at least twice weekly on vancomycin. SCr remains 1.4-1.6 since at [facility]. 3. Abx planned until 10/05 per ID. 4. Pharmacy will continue to follow. Thank you for the consultation, Srini ClaudioD Electronically signed by [facility] Conversion Clay Maker Cerner at 07/24/2022 3:40 PM CDT documented in this encounter Plan of Treatment Not on file documented as of this encounter Visit Diagnoses Not on filedocumented in this encounter Care Teams Production Stage Manager Relationship Specialty Start Date End Date Juan José Kendall MD [address] [facility] [address] [place] [phone] PCP - General Family Medicine 12/25/22 Juan José Kendall MD [address] [facility] [address] [place] [id number] Referring Physician Family Medicine 12/25/22 documented as of this encounter
--- OUTSIDE RECORDS SUMMARY | 2024-03-11 09:19 | XMS_ITS | Encounter Summary ---
Author Organization [employer] Address [address] [facility] [facility] [place] [address] Care Team Providers Care Wood Boatbuilder Apprentice Name Role Phone Juan José Kendall MD Primary Care Provider +- [phone] Juan José Kendall MD Unavailable [phone] Encounter Details Date Type Department Care Team (Late st Contact Info) Description 09/14/2018 Transcribed Document [facility] [place] [facility] [place] [address] ProviderLaurie MD [address] [place] [id number] Social History Tobacco Use Types Packs/Day Years Used Date Smoking Tobacco: Never Assessed Comments Unknown Sex and Gender Information Value Date Recorded Sex Assigned at Not on file Legal Sex Female 2:23 PM CDT Gender Identity Not on file Sexual Orientation Not on file documented as of this encounter Miscellaneous Notes * Cerner Conversion Note - Laurie ProviderMD - 09/14/2018 9:00 AM CDT Pain Assessment Entered On: 09/14/2018 13:59 EDT Performed On: 09/14/2018 10:25 EDT by Emily Fox RN Intervention Information: acetaminophen Performed by Emily Fox RN on 09/14/2018 09:25:00 EDT acetaminophen,500mg Oral Pain Assessment Pain Assessment : Follow-up assessment Pain Scale Goal : 3 Pain Scale Used : 0-10 Scale Emily Fox RN - 09/14/2018 13:59 EDT Pain Scale Intensity : 3 Emily Fox RN - 09/14/2018 13:59 EDT Image 4 - Images currently included in the form version of this document have not been included in the text rendition version of the form. documented in this encounter Plan of Treatment Not on file documented as of this encounter Visit Diagnoses Not on filedocumented in this encounter Care Teams Wood Boatbuilder Apprentice Relationship Specialty Start Date End Date Juan José Kendall MD [address] [facility] [address] [place] [id number] PCP - General Family Medicine 12/25/22 Juan José Kendall MD [address] [facility] [address] [place] [phone] Referring Physician Family Medicine 12/25/22 documented as of this encounter
--- OUTSIDE RECORDS SUMMARY | 2024-03-11 09:19 | XMS_ITS | Encounter Summary ---
Author Organization [employer] Address [address] [place] [address] Care Team Providers Care Gambling Counsellor Name Role Phone Juan José Kendall MD Primary Care Provider + [phone] Juan José Kendall MD Unavailable [phone] Encounter Details Date Type Department Care Team (Late st Contact Info) Description 09/14/2018 Transcribed Document [facility] [place] Family Medicine [address] [place] [address] ProviderLaurie MD [address] [place] [address] Social History Tobacco Use Types Packs/Day Years Used Date Smoking Tobacco: Never Assessed Comments Unknown Sex and Gender Information Value Date Recorded Sex Assigned at Not on file Legal Sex Female 2:23 PM CDT Gender Identity Not on file Sexual Orientation Not on file documented as of this encounter Miscellaneous Notes * Cerner Conversion Note - Laurie ProviderMD - 09/14/2018 5:00 AM CDT Chart Check - Review Order Profile Entered On: 09/14/2018 3:15 EDT Performed On: 09/14/2018 5:00 EDT by Angy Esqueda Rn Chart Check Powerplans Initiated/Discontinued as Appropriate : Yes All Active Orders Reviewed : Yes Angy Esqueda Rn - 09/14/2018 3:15 EDT Electronically signed by Aleks [facility] Conversion Senior Java Ui Developer Cerner at 07/24/2022 3:58 PM CDT documented in this encounter Plan of Treatment Not on file documented as of this encounter Visit Diagnoses Not on filedocumented in this encounter Care Teams Gambling Counsellor Relationship Specialty Start Date End Date Juan José Kendall MD [address] [place] [id number] PCP - General Family Medicine 12/25/22 Juan José Kendall MD [address] [place] [phone] Referring Physician Family Medicine 12/25/22 documented as of this encounter
--- OUTSIDE RECORDS SUMMARY | 2024-03-11 09:19 | XMS_ITS | Encounter Summary ---
Author Organization [employer] Address [address] [place] [address] Care Team Providers Care Aircraft Line Assembler Name Role Phone Juan José Kendall MD Primary Care Provider +- [phone] Juan José Kendall MD Unavailable [phone] Encounter Details Date Type Department Care Team (Late st Contact Info) Description 09/14/2018 Transcribed Document [facility] [place] [facility] [place] [address] ProviderLaurie MD [address] [place] [address] Social History Tobacco Use Types Packs/Day Years Used Date Smoking Tobacco: Never Assessed Comments Unknown Sex and Gender Information Value Date Recorded Sex Assigned at Not on file Legal Sex Female 2:23 PM CDT Gender Identity Not on file Sexual Orientation Not on file documented as of this encounter Miscellaneous Notes * Cerner Conversion Note - Laurie Garcia MD - 09/14/2018 12:21 PM CDT Patient: TRUDI BLAIR Age: 63 [...] alert comfortable, asympt. , pain under control, ???Slow progressive improvement ???Participating with PT/OT ???Improving renal function Review of Systems Constitutional: No fever, No [...] oint 2 g 1 Application, Topical, Daily DAPTOmycin + NaCl 0.9% 50 mL 700 mg 14 mL, IV Piggyback, [id number] heparin 5,000 units/1 mL inj 5,000 Units 1 mL, SubCutaneous, Q8HInt metoclopramide 10 mg tab 10 mg 1 Tab, Oral, BID metoprolol tartrate 25 mg tab 25 mg 1 Tab, Oral, Daily ondansetron 4 mg/2 mL inj 4 mg 2 mL, IV Push, [id number] pantoprazole EC 40 mg tab 40 mg 1 Tab, Oral, Daily potassium chloride CR 20 mEq tab 20 mEq 1 Tab, Oral, BID saccharomyces boulardii 250 mg cap 250 mg 1 Cap, Oral, Daily scopolamine 1.5 mg/72 hr patch 1 Patch, TransDermal, Q3Days topiramate 25 mg sprinkle cap 25 mg 1 Cap, Oral, BID Continuous: (0) PRN: (21) acetaminophen 325 mg [...] Stress incontinence Physical Examination VS/Measurements Vital Measurements 09/14/2018 7:45 EDT Systolic Blood Pressure 141 mmHg HI Diastolic Blood Pressure 74 mmHg Temperature Source Oral Temperature Mode Fahrenheit Temperature, Fahrenheit 98.1 Deg F Clinical Temperature, C 36.7 Deg C Heart Rate Monitored 76 bpm Respiratory Rate 18 Breaths/Min Oxygen Saturation 94 % General: Alert and oriented, No acute [...] Review / Management Results review: All Results 09/14/2018 4:08 EDT Sodium Level 146 mmol/L Potassium Level 3.4 mmol/L LOW Chloride Level 112 mmol/L Carbon Dioxide Level 28 mmol/L Anion Gap 9 Glucose Level 93 mg/dL Blood Urea Nitrogen 39 mg/dL HI Creatinine Level 1.40 mg/dL HI eGFR 46 mL/min/1.73m2 LOW eGFR NonAfrican 38 mL/min/1.73m2 LOW Bun/Creatinine 27.9 HI Calcium Level 8.2 mg/dL LOW Platelet Count 235 K/uL 09/13/2018 5:22 EDT Sodium Level 146 mmol/L Potassium Level 3.6 mmol/L Chloride Level 113 mmol/L HI Carbon Dioxide Level 29 mmol/L Anion Gap 8 LOW Glucose Level 93 mg/dL Blood Urea Nitrogen 36 mg/dL HI Creatinine Level 1.50 mg/dL HI eGFR 42 mL/min/1.73m2 LOW eGFR NonAfrican 35 mL/min/1.73m2 LOW Bun/Creatinine 24.0 HI Calcium Level 8.2 mg/dL LOW . Condition: Stable. Impression and [...] filedocumented in this encounter Care Teams Aircraft Line Assembler Relationship Specialty Start Date End Date Juan José Kendall MD [address] [facility] [address] [place] [phone] PCP - General Family Medicine 12/25/22 Juan José Kendall MD [address] [facility] [address] [place] [phone] Referring Physician Family Medicine 12/25/22 documented as of this encounter
--- OUTSIDE RECORDS SUMMARY | 2024-03-11 09:19 | XMS_ITS | Encounter Summary ---
Author Organization [employer] Address [address] [place] [address] Care Team Providers Care Baked And Graphite Inspector Name Role Phone Juan José Kendall MD Primary Care Provider + [phone] Juan José Kendall MD Unavailable [phone] Encounter Details Date Type Department Care Team (Late st Contact Info) Description 09/17/2018 Transcribed Document [facility] [place] [facility] [address] ProviderLaurie MD [address] [place] [address] Social History Tobacco Use Types Packs/Day Years Used Date Smoking Tobacco: Never Assessed Comments Unknown Sex and Gender Information Value Date Recorded Sex Assigned at Not on file Legal Sex Female 2:23 PM CDT Gender Identity Not on file Sexual Orientation Not on file documented as of this encounter Miscellaneous Notes * Cerner Conversion Note - Luarie Garcia MD - 09/17/2018 9:40 PM CDT Patient: TRUDI BLAIR Age: 63 [...] pain under control, no trouble w. urination -Still having .Vomited once this morning -Diarrhea resolved -renal function continue improving Review of Systems Constitutional: No fever, No [...] inj 4 mg 2 mL, IV Push, [id number] pantoprazole EC 40 mg tab 40 mg [...] Water 250 mL 1,000 mg, IV Piggyback, [id number] Continuous: (0) PRN: (21) acetaminophen 325 mg [...] Stress incontinence Physical Examination VS/Measurements Vital Measurements 09/17/2018 19:00 EDT Systolic Blood Pressure 137 mmHg Diastolic Blood Pressure 66 mmHg Temperature Source Oral Temperature Mode Fahrenheit Temperature, Fahrenheit 97.4 Deg F Heart Rate Monitored 86 bpm Respiratory Rate 16 Breaths/Min Oxygen Saturation 100 % 09/17/2018 16:02 EDT Systolic Blood Pressure 161 mmHg HI Diastolic Blood Pressure 79 mmHg Temperature Source Oral Temperature Mode Fahrenheit Temperature, Fahrenheit 98.7 Deg F Clinical Temperature, C 37.1 Deg C Heart Rate, Apical 78 bpm Heart Rate Monitored 78 bpm Respiratory Rate 18 Breaths/Min General: Alert and oriented, No acute distress. [...] Review / Management Results review: All Results 09/17/2018 4:32 EDT Sodium Level 147 mmol/L HI Potassium Level 3.5 mmol/L Chloride Level 116 mmol/L HI Carbon Dioxide Level 25 mmol/L Anion Gap 10 Glucose Level 97 mg/dL Blood Urea Nitrogen 35 mg/dL HI Creatinine Level 1.20 mg/dL HI eGFR 55 mL/min/1.73m2 LOW eGFR NonAfrican 45 mL/min/1.73m2 LOW Bun/Creatinine 29.2 HI Calcium Level 8.1 mg/dL LOW 09/16/2018 5:29 EDT Sodium Level 145 mmol/L [...] 17.5 % LOW Lymph # 1.22 x10(3)/uL Summers % 9.8 % HI Summers # 0.68 K/uL Eos % 4.6 % Eos # 0.32 x10(3)/uL Baso % 0.9 % Baso # 0.06 x10(3)/uL Slide Review No IG# 0.05 x10(3)/uL IG% 0.70 % HI . Impression and Plan Diagnosis Left prosthetic [...] renal function, blood glucose, and urine output. cont. on IV antibiotics, wound care , pain control ,DVT prophylaxis , sleep apnea precautions , fall risk precautions. documented in this encounter Plan of Treatment Not on file documented as of this encounter Visit Diagnoses Not on filedocumented in this encounter Care Teams Baked And Graphite Inspector Relationship Specialty Start Date End Date Juan José Kendall MD [address] [facility] [address] [place] [phone] PCP - General Family Medicine 12/25/22 Juan José Kendall MD [facility] [facility] [address] [place] [phone] Referring Physician Family Medicine 12/25/22 documented as of this encounter
--- OUTSIDE RECORDS SUMMARY | 2024-03-11 09:19 | XMS_ITS | Encounter Summary ---
Author Organization [employer] Address [address] [place] [address] Care Team Providers Care Laundry Routeman Name Role Phone Juan José Kendall MD Primary Care Provider +- [phone] Juan José Kendall MD Unavailable [phone] Encounter Details Date Type Department Care Team (Late st Contact Info) Description 09/17/2018 Transcribed Document [facility] [place] Family Medicine [facility] [place] [address] ProviderLaurie MD [address] [place] [address] Social History Tobacco Use Types Packs/Day Years Used Date Smoking Tobacco: Never Assessed Comments Unknown Sex and Gender Information Value Date Recorded Sex Assigned at Not on file Legal Sex Female 2:23 PM CDT Gender Identity Not on file Sexual Orientation Not on file documented as of this encounter Miscellaneous Notes * Cerner Conversion Note - Laurie ProviderMD - 09/17/2018 3:00 PM CDT Pain Assessment Entered On: 09/17/2018 16:58 EDT Performed On: 09/17/2018 16:50 EDT by Bambi Rolon Rn Intervention Information: acetaminophen Performed by Bambi Rolon Rn on 09/17/2018 15:50:00 EDT acetaminophen,500mg Oral Pain Assessment Pain Assessment : Follow-up assessment Pain Scale Goal : 3 Pain Improved by Intervention : Yes Bambi Rolon Rn - 09/17/2018 16:58 EDT documented in this encounter Plan of Treatment Not on file documented as of this encounter Visit Diagnoses Not on filedocumented in this encounter Care Teams Laundry Routeman Relationship Specialty Start Date End Date Juan José Kendall MD [address] [facility] [address] [place] [phone] PCP - General Family Medicine 12/25/22 Juan José Kendall MD [address] [facility] [address] [place] [phone] Referring Physician Family Medicine 12/25/22 documented as of this encounter
--- OUTSIDE RECORDS SUMMARY | 2024-03-11 09:19 | XMS_ITS | Encounter Summary ---
Author Organization [employer] Init iatives Address [address] [place] [address] Care Team Providers Care Steamboat Captain Name Role Phone Juan José Kendall MD Primary Care Provider +- [phone] Juan Jsoé Kendall MD Unavailable [phone] Encounter Details Date Type Department Care Team (Late st Contact Info) Description 09/15/2018 Transcribed Document [facility] Family [place] [address] ProviderLaurie MD [address] [place] [address] Social History Tobacco Use Types Packs/Day Years Used Date Smoking Tobacco: Never Assessed Comments Unknown Sex and Gender Information Value Date Recorded Sex Assigned at Not on file Legal Sex Female 2:23 PM CDT Gender Identity Not on file Sexual Orientation Not on file documented as of this encounter Miscellaneous Notes * Cerner Conversion Note - Laurie ProviderMD - 09/15/2018 11:31 AM CDT Care Management Assessment/Plan Entered On: 09/15/2018 11:34 EDT Performed On: 09/15/2018 11:31 EDT by PJ NELSON Care Management Note Care Management Note : 09/15/2018 Fax recieved from [facility] with approval for LTACH services 09/15-09/21/2018. Auth# [id number]. Fax next clinical review to [phone] on 09/21/2018. Care Management Note Report : PJ NELSON - 09/14/18 08:28:49 09/14/2018 Clinical review faxed to [facility] PPO ([phone]) to request coverage for continued LTACH services. Approval pending. Auth# [id number]. Chuyita Briceno, Clinical Assessment Liaison - 09/09/18 [...] SNF. She has previously used [facility] and prefers to use them again if needed. The patient owns a shower chair, BSC and w/c. The patient has never needed a dialysis clinic. The patient has not fallen in the past 3 months. PCP- Dr. Ranjeet [facility]- Orthopedic- Dr. Shay Guerrero [facility]- - [facility] SNF- [facility] The patient does wish to return home upon discharge but understands that rehab/SNF may be needed. All papers were explained and signed. No other issues. CM will continue to monitor. Documentation Status Complete : Yes PJ NELSON - 09/15/2018 11:31 EDT documented in this encounter Plan of Treatment Not on file documented as of this encounter Visit Diagnoses Not on filedocumented in this encounter Care Teams Steamboat Captain Relationship Specialty Start Date End Date Juan José Kendall MD [address] [facility] [address] [place] [address] PCP - General Family Medicine 12/25/22 Juan José Kendall MD [address] [place] [facility] [address] [place] [address] Referring Physician Family Medicine 12/25/22 documented as of this encounter
--- OUTSIDE RECORDS SUMMARY | 2024-03-11 09:19 | XMS_ITS | Encounter Summary ---
Author Organization [employer] Init iatives Address [address] [facility] [place] [place] [address] Care Team Providers Care Alley Cleaner Name Role Phone Juan José Kendall MD Primary Care Provider + [phone] Juan José Kendall MD Unavailable [phone] Encounter Details Date Type Department Care Team (Late st Contact Info) Description 09/16/2018 Transcribed Document [facility] [place] [address] ProviderLaurie MD [address] [place] [address] Social History Tobacco Use Types Packs/Day Years Used Date Smoking Tobacco: Never Assessed Comments Unknown Sex and Gender Information Value Date Recorded Sex Assigned at Not on file Legal Sex Female 2:23 PM CDT Gender Identity Not on file Sexual Orientation Not on file documented as of this encounter Miscellaneous Notes * Cerner Conversion Note - Historical ProviderMD - 09/16/2018 6:00 PM CDT Patch Check Entered On: 09/16/2018 17:50 EDT Performed On: 09/16/2018 18:00 EDT by ENOCH PERDOMO LPN Patch Check Patch Check Result : Yes Patch Check - Type of Patch : scopolamine (Transderm-Scop) Patch Check - Location : Left Ear ENOCH PERDOMO LPN - 09/16/2018 17:50 EDT documented in this encounter Plan of Treatment Not on file documented as of this encounter Visit Diagnoses Not on filedocumented in this encounter Care Teams Alley Cleaner Relationship Specialty Start Date End Date Juan José Kendall MD [address] [place] [address] PCP - General Family Medicine 12/25/22 Juan José Kendall MD [address] [place] [address] Referring Physician Family Medicine 12/25/22 documented as of this encounter
--- OUTSIDE RECORDS SUMMARY | 2024-03-11 09:19 | XMS_ITS | Encounter Summary ---
Author Organization [employer] Address [address] [place] [address] Care Team Providers Care Women'S Activities Adviser Name Role Phone Juan José Kendall MD Primary Care Provider + [phone] Juan José Kendall MD Unavailable [phone] Encounter Details Date Type Department Care Team (Late st Contact Info) Description 09/16/2018 Transcribed Document [facility] [place] [facility] [place] [address] ProviderLaurie MD [address] [place] [address] Social History Tobacco Use Types Packs/Day Years Used Date Smoking Tobacco: Never Assessed Comments Unknown Sex and Gender Information Value Date Recorded Sex Assigned at Not on file Legal Sex Female 2:23 PM CDT Gender Identity Not on file Sexual Orientation Not on file documented as of this encounter Miscellaneous Notes * Cerner Conversion Note - Historical ProviderMD - 09/16/2018 10:15 AM CDT Therapy Screen, PT Entered On: 09/16/2018 10:20 EDT Performed On: 09/16/2018 10:15 EDT by BIJAL GALLOWAY PT Therapy Screen, PT Medical Chart Reviewed : Yes Person Providing Information : Family, Nurse, Patient, Other: Josef HOROWITZ Screen Completed : Yes Recommendation for Evaluation, PT : None Recommendations Upon Discharge : Home health services Additional Therapy Screen Comment : PT asked to see for unna boots or compression wraps. 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 NWB LLE. Would not advise any compression on this leg. Pt says her RLE has gone down since propping RLE on 2 pillows. She (Comment: states she had regular estefanía wraps placed on BLE once before for edema control and these worked to decrease edema. Spoke with RNJasmyne to perform screen and spoke with WOCN, Josef Haile. At this time PTx recommends having BLE elevated to see if this can result in decreased swelling. If further intervention is needed, would recommend RN do regular estefanía wraps to RLE. No compression wraps nor unna boots warranted until these efforts are attempted first. [BIJAL GALLOWAY, PT - 09/16/2018 10:15 EDT] ) BIJAL GALLOWAY, PT - 09/16/2018 10:15 EDT Electronically signed by Aleks [facility] Conversion Replanting Machine Operator Cerner at 07/24/2022 3:59 PM CDT documented in this encounter Plan of Treatment Not on file documented as of this encounter Visit Diagnoses Not on filedocumented in this encounter Care Teams Women'S Activities Adviser Relationship Specialty Start Date End Date Juan José Kendall MD [address] [facility] [address] [place] [address] PCP - General Family Medicine 12/25/22 Juan José Kendall MD [address] [facility] [address] [place] [address] Referring Physician Family Medicine 12/25/22 documented as of this encounter
--- OUTSIDE RECORDS SUMMARY | 2024-03-11 09:19 | XMS_ITS | Encounter Summary ---
Author Organization [employer] Init iatives Address [address] [place] [address] Care Team Providers Care Assistant Corporate Secretary Name Role Phone Juan José Kendall MD Primary Care Provider +- [phone] Juan José Kendall MD Unavailable [phone] Encounter Details Date Type Department Care Team (Late st Contact Info) Description 09/15/2018 Transcribed Document [facility] [facility] [place] [address] ProviderLaurie MD [address] [place] [address] Social History Tobacco Use Types Packs/Day Years Used Date Smoking Tobacco: Never Assessed Comments Unknown Sex and Gender Information Value Date Recorded Sex Assigned at Not on file Legal Sex Female 2:23 PM CDT Gender Identity Not on file Sexual Orientation Not on file documented as of this encounter Miscellaneous Notes * Cerner Conversion Note - Historical ProviderMD - 09/15/2018 2:00 AM CDT Heel Compressor Details Entered On: 09/15/2018 3:17 EDT Performed On: 09/15/2018 2:00 EDT by Angy Esqueda Rn Order [...] Line : No Angy Esqueda Rn - 09/15/2018 3:16 EDT Electronically signed by Aleks [facility] Conversion Air Traffic Coordinator Cerner at 07/24/2022 3:38 PM CDT documented in this encounter Plan of Treatment Not on file documented as of this encounter Visit Diagnoses Not on filedocumented in this encounter Care Teams Assistant Corporate Secretary Relationship Specialty Start Date End Date [...]
--- OUTSIDE RECORDS SUMMARY | 2024-03-11 09:19 | XMS_ITS | Encounter Summary ---
Author Organization [employer] In [employer]atives Address [address] [place] [address] Care Team Providers Care Resource Center Teacher Name Role Phone Juan José Kendall MD Primary Care Provider + [phone] Juan José Kendall MD Unavailable [phone] Encounter Details Date Type Department Care Team (Late st Contact Info) Description 09/16/2018 Transcribed Document [facility] [place] [facility] [place] [address] [place] [address] ProviderLaurie MD [address] [place] [address] Social History Tobacco Use Types Packs/Day Years Used Date Smoking Tobacco: Never Assessed Comments Unknown Sex and Gender Information Value Date Recorded Sex Assigned at Not on file Legal Sex Female 2:23 PM CDT Gender Identity Not on file Sexual Orientation Not on file documented as of this encounter Miscellaneous Notes * Cerner Conversion Note - Historical ProviderMD - 09/16/2018 5:00 AM CDT Chart Check - Review Order Profile Entered On: 09/16/2018 5:35 EDT Performed On: 09/16/2018 5:00 EDT by Linh Honeycutt RN Chart Check Powerplans Initiated/Discontinued as Appropriate : Yes All Active Orders Reviewed : Yes Linh Honeycutt RN - 09/16/2018 5:35 EDT documented in this encounter Plan of Treatment Not on file documented as of this encounter Visit Diagnoses Not on filedocumented in this encounter Care Teams Resource Center Teacher Relationship Specialty Start Date End Date Juan José Kendall MD [address] [place] [address] PCP - General Family Medicine 12/25/22 Juan José Kendall MD [address] [place] [address] [place] [address] Referring Physician Family Medicine 12/25/22 documented as of this encounter
--- OUTSIDE RECORDS SUMMARY | 2024-03-11 09:19 | XMS_ITS | Encounter Summary ---
Author Organization [employer] In [employer]atives Address [address] [place] [address] Care Team Providers Care Chairman & Co Founder Name Role Phone Juan José Kendall MD Primary Care Provider + [phone] Juan José Kendall MD Unavailable [phone] Encounter Details Date Type Department Care Team (Late st Contact Info) Description 09/15/2018 Transcribed Document [facility] Family Medicine [address] [place] [address] ProviderLaurie MD [address] [place] [address] Social History Tobacco Use Types Packs/Day Years Used Date Smoking Tobacco: Never Assessed Comments Unknown Sex and Gender Information Value Date Recorded Sex Assigned at Not on file Legal Sex Female 2:23 PM CDT Gender Identity Not on file Sexual Orientation Not on file documented as of this encounter Miscellaneous Notes * Cerner Conversion Note - Laurie ProviderMD - 09/15/2018 5:00 AM CDT Chart Check - Review Order Profile Entered On: 09/15/2018 3:17 EDT Performed On: 09/15/2018 5:00 EDT by Angy Esqueda Rn Chart Check Powerplans Initiated/Discontinued as Appropriate : Yes All Active Orders Reviewed : Yes Angy Esqueda Rn - 09/15/2018 3:17 EDT documented in this encounter Plan of Treatment Not on file documented as of this encounter Visit Diagnoses Not on filedocumented in this encounter Care Teams Chairman & Co Founder Relationship Specialty Start Date End Date Juan José Kendall MD [address] [place] [address] PCP - General Family Medicine 12/25/22 Juan José Kendall MD [address] [place] [phone] Referring Physician Family Medicine 12/25/22 documented as of this encounter
--- OUTSIDE RECORDS SUMMARY | 2024-03-11 09:19 | XMS_ITS | Encounter Summary ---
Author Organization [employer] Init [employer]atives Address [address] [place] [address] Care Team Providers Care Water Safety Instructor Name Role Phone Juan José Kendall MD Primary Care Provider +- [phone] Juan José Kendall MD Unavailable [phone] Encounter Details Date Type Department Care Team (Late st Contact Info) Description 09/16/2018 Transcribed Document [facility] [place] Family [place] [facility] [place] [address] ProviderLaurie MD [address] [place] [address] Social History Tobacco Use Types Packs/Day Years Used Date Smoking Tobacco: Never Assessed Comments Unknown Sex and Gender Information Value Date Recorded Sex Assigned at Not on file Legal Sex Female 2:23 PM CDT Gender Identity Not on file Sexual Orientation Not on file documented as of this encounter Miscellaneous Notes * Cerner Conversion Note - Laurie ProviderMD - 09/16/2018 3:00 AM CDT Pain Assessment Entered On: 09/16/2018 3:48 EDT Performed On: 09/16/2018 3:02 EDT by Linh Honeycutt RN Intervention Information: acetaminophen Performed by Linh Honeycutt RN on 09/16/2018 02:02:00 EDT acetaminophen,500mg Oral Pain Assessment Pain Assessment : Follow-up assessment Pain Scale Goal : 3 Pain Improved by Intervention : Yes Linh Honeycutt RN - 09/16/2018 3:47 EDT documented in this encounter Plan of Treatment Not on file documented as of this encounter Visit Diagnoses Not on filedocumented in this encounter Care Teams Water Safety Instructor Relationship Specialty Start Date End Date Juan José Kendall MD [address] [facility] [address] [place] [phone] PCP - General Family Medicine 12/25/22 Juan José Kendall MD [address] [facility] [address] [place] [phone] Referring Physician Family Medicine 12/25/22 documented as of this encounter
--- OUTSIDE RECORDS SUMMARY | 2024-03-11 09:19 | XMS_ITS | Encounter Summary ---
Author Organization [employer] In [employer] Address [address] [place] [address] Care Team Providers Care Leasing Coordinator Name Role Phone Juan José Kendall MD Primary Care Provider +- [phone] Juan José Kendall MD Unavailable [phone] Encounter Details Date Type Department Care Team (Late st Contact Info) Description 09/15/2018 Transcribed Document [facility] [place] [facility] [place] [address] ProviderLaurie MD [address] [place] [address] Social History Tobacco Use Types Packs/Day Years Used Date Smoking Tobacco: Never Assessed Comments Unknown Sex and Gender Information Value Date Recorded Sex Assigned at Not on file Legal Sex Female 2:23 PM CDT Gender Identity Not on file Sexual Orientation Not on file documented as of this encounter Miscellaneous Notes * Cerner Conversion Note - Laurie Garcia MD - 09/15/2018 6:28 PM CDT Patient: TRUDI BLAIR Age: 63 [...] pain under control, no trouble w. urination. ???High spirit ???Participating with PT/OT ???Complaining of lower extremity edema ???Improving renal function Review of Systems Constitutional: [...] inj 4 mg 2 mL, IV Push, [id number] pantoprazole EC 40 mg tab 40 mg [...] 0.9% 250 mL 1,250 mg, IV Piggyback, [id number] Continuous: (0) PRN: (21) acetaminophen 325 mg [...] Stress incontinence Physical Examination VS/Measurements Vital Measurements 09/15/2018 15:30 EDT Systolic Blood Pressure 139 mmHg Diastolic Blood Pressure 62 mmHg Temperature Source Oral Temperature Mode Fahrenheit Temperature, Fahrenheit 98.2 Deg F Clinical Temperature, C 36.8 Deg C Heart Rate Monitored 64 bpm Respiratory Rate 20 Breaths/Min Oxygen Saturation 98 % General: Alert [...] lymphadenopathy neck, axilla, groin. Musculoskeletal: Normal strength, Bilateral lower extremity edema. Integumentary: Warm, Intact, No rash. Neurologic: Alert, Oriented, No focal deficits. Psychiatric: Cooperative, Appropriate mood & affect. Review / Management Results review: All Results 09/15/2018 4:36 EDT Sodium Level 146 mmol/L Potassium Level 3.5 mmol/L Chloride Level 113 mmol/L HI Carbon Dioxide Level 26 mmol/L Anion Gap 10 Glucose Level 87 mg/dL Blood Urea Nitrogen 41 mg/dL HI Creatinine Level 1.30 mg/dL HI eGFR 50 mL/min/1.73m2 LOW eGFR NonAfrican 41 mL/min/1.73m2 LOW Bun/Creatinine 31.5 HI Calcium Level 8.3 mg/dL LOW CK 32 Units/Liter 09/14/2018 4:08 EDT Sodium Level 146 mmol/L Potassium Level 3.4 mmol/L LOW Chloride Level 112 mmol/L Carbon Dioxide Level 28 mmol/L Anion Gap 9 Glucose Level 93 mg/dL Blood Urea Nitrogen 39 mg/dL HI Creatinine Level 1.40 mg/dL HI eGFR 46 mL/min/1.73m2 LOW eGFR NonAfrican 38 mL/min/1.73m2 LOW Bun/Creatinine 27.9 HI Calcium Level 8.2 mg/dL LOW Platelet Count 235 K/uL . Impression and Plan Diagnosis Left [...] electrolytes -When necessary nebs -Fall risk precautions -Unna boot or tight dressing to lower extremity, will contact wound care nurse -We will check albumin level and a. Orders Order Profile (Selected) Inpatient Orders Ordered (Scheduled) CBC w/ Auto Diff: Specimen Type: Blood, AM Draw collect, 09/16/18 4:00:00 EDT, 1-Time, Stop: 09/16/18 4:00:00 EDT, Nurse Collect CMP Comprehensive Metabolic Panel: Specimen Type: Blood, AM Draw collect, 09/16/18 4:00:00 EDT, 1-Time, Stop: 09/16/18 4:00:00 EDT, Nurse Collect. documented in this encounter Plan of Treatment Not on file documented as of this encounter Visit Diagnoses Not on filedocumented in this encounter Care Teams Leasing Coordinator Relationship Specialty Start Date End Date Juan José Kendall MD [address] [facility] [address] [place] [phone] PCP - General Family Medicine 12/25/22 Juan José Kendall MD [address] [facility] [address] [place] [phone] Referring Physician Family Medicine 12/25/22 documented as of this encounter
--- OUTSIDE RECORDS SUMMARY | 2024-03-11 09:19 | XMS_ITS | Encounter Summary ---
Author Organization [employer] Init [employer]atives Address [address] [place] [address] Care Team Providers Care Cashier Tube Room Name Role Phone Juan José Kendall MD Primary Care Provider +- [phone] Juan José Kendall MD Unavailable [phone] Encounter Details Date Type Department Care Team (Late st Contact Info) Description 09/16/2018 Transcribed Document [facility] [place] Family Medicine [facility] [place] [address] ProviderLaurie MD [address] [place] [id number] Social History Tobacco Use Types Packs/Day Years Used Date Smoking Tobacco: Never Assessed Comments Unknown Sex and Gender Information Value Date Recorded Sex Assigned at Not on file Legal Sex Female 2:23 PM CDT Gender Identity Not on file Sexual Orientation Not on file documented as of this encounter Miscellaneous Notes * Cerner Conversion Note - Historical ProviderMD - 09/16/2018 9:00 AM CDT Pain Assessment Entered On: 09/16/2018 11:38 EDT Performed On: 09/16/2018 10:07 EDT by ENOCH PERDOMO LPN Intervention Information: acetaminophen Performed by ENOCH PERDOMO LPN on 09/16/2018 09:07:00 EDT acetaminophen,500mg Oral Pain Assessment Pain Assessment : Follow-up assessment Pain Scale Goal : 3 Pain Scale Used : 0-10 Scale Location : Leg, left ENOCH PERDOMO LPN - 09/16/2018 11:38 EDT Pain Scale Intensity : 1 ENOCH PERDOMO LPN - 09/16/2018 11:38 EDT Image 4 - Images currently included in the form version of this document have not been included in the text rendition version of the form. documented in this encounter Plan of Treatment Not on file documented as of this encounter Visit Diagnoses Not on filedocumented in this encounter Care Teams Cashier Tube Room Relationship Specialty Start Date End Date Juan José Kendall MD [address] [facility] [address] [place] [address] PCP - General Family Medicine 12/25/22 [place] [address] [place] [address] [address] [place] [address] Referring Physician Family Medicine 12/25/22 documented as of this encounter
--- OUTSIDE RECORDS SUMMARY | 2024-03-11 09:19 | XMS_ITS | Encounter Summary ---
Author Organization [employer] Init [employer] Address [address] [place] [address] Care Team Providers Care Geophysical Operator Name Role Phone Juan José Kendall MD Primary Care Provider +- [phone] Juan José Kendall MD Unavailable [phone] Encounter Details Date Type Department Care Team (Late st Contact Info) Description 09/16/2018 Transcribed Document [facility] [place] [facility] [place] [address] ProviderLaurie MD [address] [place] [address] Social History Tobacco Use Types Packs/Day Years Used Date Smoking Tobacco: Never Assessed Comments Unknown Sex and Gender Information Value Date Recorded Sex Assigned at Not on file Legal Sex Female 2:23 PM CDT Gender Identity Not on file Sexual Orientation Not on file documented as of this encounter Miscellaneous Notes * Cerner Conversion Note - Laurie ProviderMD - 09/16/2018 9:00 PM CDT Pain Assessment Entered On: 09/17/2018 1:39 EDT Performed On: 09/16/2018 22:09 EDT by Kelly Deng, RN Intervention Information: acetaminophen Performed by Kelly Deng, RN on 09/16/2018 21:09:00 EDT acetaminophen,500mg Oral Pain Assessment Pain Assessment : Follow-up assessment Pain Scale Goal : 3 Pain Improved by Intervention : Yes Kelly Deng RN - 09/17/2018 1:39 EDT documented in this encounter Plan of Treatment Not on file documented as of this encounter Visit Diagnoses Not on filedocumented in this encounter Care Teams Geophysical Operator Relationship Specialty Start Date End Date Juan José Kendall MD [address] [facility] [address] [place] [address] PCP - General Family Medicine 12/25/22 Juan José Kendall MD [address] [facility] [address] [place] [phone] Referring Physician Family Medicine 12/25/22 documented as of this encounter
--- OUTSIDE RECORDS SUMMARY | 2024-03-11 09:19 | XMS_ITS | Encounter Summary ---
Author Organization [employer] Address [address] [place] [address] Care Team Providers Care Agri Business Agent Name Role Phone Juan José Kendall MD Primary Care Provider +- [phone] Juan José Kendall MD Unavailable [phone] Encounter Details Date Type Department Care Team (Late st Contact Info) Description 09/15/2018 Transcribed Document [facility] Family Medicine [facility] [place] [address] ProviderLaurie MD [address] [place] [address] Social History Tobacco Use Types Packs/Day Years Used Date Smoking Tobacco: Never Assessed Comments Unknown Sex and Gender Information Value Date Recorded Sex Assigned at Not on file Legal Sex Female 2:23 PM CDT Gender Identity Not on file Sexual Orientation Not on file documented as of this encounter Miscellaneous Notes * Cerner Conversion Note - Laurie ProviderMD - 09/15/2018 9:00 PM CDT Pain Assessment Entered On: 09/16/2018 1:07 EDT Performed On: 09/15/2018 21:36 EDT by Linh Honeycutt RN Intervention Information: acetaminophen Performed by Linh Honeycutt RN on 09/15/2018 20:36:00 EDT acetaminophen,500mg Oral Pain Assessment Pain Assessment : Follow-up assessment Pain Scale Goal : 3 Pain Improved by Intervention : Yes Linh Honeycutt RN - 09/16/2018 1:07 EDT documented in this encounter Plan of Treatment Not on file documented as of this encounter Visit Diagnoses Not on filedocumented in this encounter Care Teams Agri Business Agent Relationship Specialty Start Date End Date [...]
--- OUTSIDE RECORDS SUMMARY | 2024-03-11 09:19 | XMS_ITS | Encounter Summary ---
Author Organization [employer] Address [address] [place] [address] Care Team Providers Care Senior Technical Support Analyst Name Role Phone Juan José Kendall MD Primary Care Provider + [phone] Juan José Kendall MD Unavailable [phone] Encounter Details Date Type Department Care Team (Late st Contact Info) Description 09/17/2018 Transcribed Document [facility] [place] [place] Family Medicine [address] [place] [address] ProviderLaurie MD [address] [place] [address] Social History Tobacco Use Types Packs/Day Years Used Date Smoking Tobacco: Never Assessed Comments Unknown Sex and Gender Information Value Date Recorded Sex Assigned at Not on file Legal Sex Female 2:23 PM CDT Gender Identity Not on file Sexual Orientation Not on file documented as of this encounter Miscellaneous Notes * Cerner Conversion Note - Laurie ProviderMD - 09/17/2018 5:00 AM CDT Chart Check - Review Order Profile Entered On: 09/18/2018 0:58 EDT Performed On: 09/17/2018 5:00 EDT by Kelly Deng, RN Chart Check Powerplans Initiated/Discontinued as Appropriate : Yes All Active Orders Reviewed : Yes Kelly Deng, LISBETH - 09/18/2018 0:57 EDT documented in this encounter Plan of Treatment Not on file documented as of this encounter Visit Diagnoses Not on filedocumented in this encounter Care Teams Senior Technical Support Analyst Relationship Specialty Start Date End Date Juan José Kendall MD [address] [place] [address] PCP - General Family Medicine 12/25/22 Juan José Kendall MD [address] [place] [address] Referring Physician Family Medicine 12/25/22 documented as of this encounter
--- OUTSIDE RECORDS SUMMARY | 2024-03-11 09:19 | XMS_ITS | Encounter Summary ---
Author Organization [employer] Address [address] [place] [address] Care Team Providers Care Plum Packer Name Role Phone Juan José Kendall MD Primary Care Provider +- [phone] Juan José Kendall MD Unavailable [phone] Encounter Details Date Type Department Care Team (Late st Contact Info) Description 09/16/[address] [facility] [place] Family [place] [facility] [place] [address] ProviderLaurie MD [address] [place] [address] Social History Tobacco Use Types Packs/Day Years Used Date Smoking Tobacco: Never Assessed Comments Unknown Sex and Gender Information Value Date Recorded Sex Assigned at Not on file Legal Sex Female 2:23 PM CDT Gender Identity Not on file Sexual Orientation Not on file documented as of this encounter Miscellaneous Notes * Cerner Conversion Note - Laurie ProviderMD - 09/16/2018 11:52 AM CDT Patient: TRUDI BLAIR Age: [...] 139.5 kg DBW: 91.2 kg Labs: SEP 16 05:29 145 H 114 H 39 / 95 L 3.4 25 H 1.20 \ SEP 16 05:29 \ L 8.6 / 7.0 197 / L 27.2 \ Allergies: biaxin I/O: 1212 / x6 voids Estimated CrCl: 55-60 mL/min Vitals: Vitals Signs (last 24 hrs) Last Charted Minimum Maximum Temp 98.2 (SEP 16 07:00) 98.0 (SEP 15 19:00) 98.2 (SEP 15 15:30) Apical HR 78 (SEP 16 09:07) 78 (SEP 16 09:07) 78 (SEP 16 09:07) Mon HR 78 (SEP 16 07:00) 64 (SEP 15 15:30) 95 (SEP 15 19:00) Resp Rate 15 (SEP 16 07:00) 15 (SEP 16 07:00) 20 (SEP 15 15:30) SBP H 147 (SEP 16 09:07) 101 (SEP 15 22:00) H 147 (SEP 16 07:00) DBP 63 (SEP 16 09:07) L 52 (SEP 15 22:00) 64 (SEP 15 19:00) SpO2 99 (SEP 16 07:00) 98 (SEP 15 15:30) 99 (SEP 16 07:00) Cultures: 08/10 blood: MRSA 08/10 urine: Enterococcus 08/19 blood: Enterococcus (vanc S) 08/19 L leg wound: S. epi, MRSA Current antibiotics: Vancomycin 1250mg IV q24h (start date 09/14, 09/16 = day 3) Previous antibiotics: Ceftriaxone (08/30-09/02) Ertapenem (08/30-08/31) Daptmycin (08/30-09/14) Vancomycin dosing history: A/P: 1. Started vancomycin 1250mg IV q24h on 09/14. Use lower weight-based dose in obese pts due to incomplete distribution, higher bloodstream concentrations. Pt has been having nausea with daptomycin infusions. Will check trough level 09/17 prior to 1500 dose. Likely will not be at full steady state yet. 2. Monitor renal function closely. Some ongoing PILY attributed to sepsis from admission. BMP at least twice weekly on vancomycin. SCr remains 1.4-1.6 since at [facility]. 3. Abx planned until 10/05 per ID. 4. Pharmacy will continue to follow. Thank you for the consultation, Bethany Mo PharmD Electronically signed by Aleks [facility] Conversion Slitter Helper Cerner at 07/24/2022 3:38 PM CDT documented in this encounter Plan of Treatment Not on file documented as of this encounter Visit Diagnoses Not on filedocumented in this encounter Care Teams Plum Packer Relationship Specialty Start Date End Date Juan José Kendall MD [address] [facility] [address] [place] [address] PCP - General Family Medicine 12/25/22 Juan José Kendall MD [address] [facility] [address] [place] [address] Referring Physician Family Medicine 12/25/22 documented as of this encounter
--- OUTSIDE RECORDS SUMMARY | 2024-03-11 09:19 | XMS_ITS | Encounter Summary ---
Author Organization [employer] Address [address] [place] [address] Care Team Providers Care Bacon De Rinder Name Role Phone Juan José Kendall MD Primary Care Provider + [phone] Juan José Kendall MD Unavailable [phone] Encounter Details Date Type Department Care Team (Late st Contact Info) Description 09/16/2018 Transcribed Document [facility] [place] [address] [place] [address] ProviderLaurie MD [address] [place] [address] Social History Tobacco Use Types Packs/Day Years Used Date Smoking Tobacco: Never Assessed Comments Unknown Sex and Gender Information Value Date Recorded Sex Assigned at Not on file Legal Sex Female 2:23 PM CDT Gender Identity Not on file Sexual Orientation Not on file documented as of this encounter Miscellaneous Notes * Cerner Conversion Note - Historical ProviderMD - 09/16/2018 5:00 PM CDT Chart Check - Review Order Profile Entered On: 09/16/2018 17:49 EDT Performed On: 09/16/2018 17:00 EDT by ENOCH PERDOMO LPN Chart Check Powerplans Initiated/Discontinued as Appropriate : Yes All Active Orders Reviewed : Yes ENOCH PERDOMO LPN - 09/16/2018 17:49 EDT documented in this encounter Plan of Treatment Not on file documented as of this encounter Visit Diagnoses Not on filedocumented in this encounter Care Teams Bacon De Rinder Relationship Specialty Start Date End Date Juan José Kendall MD [address] [place] [id number] PCP - General Family Medicine 12/25/22 Juan José Kendall MD [address] [place] [address] Referring Physician Family Medicine 12/25/22 documented as of this encounter
--- OUTSIDE RECORDS SUMMARY | 2024-03-11 09:19 | XMS_ITS | Encounter Summary ---
Author Organization [employer] Address [address] [place] [address] Care Team Providers Care Retail Advertising Sales Manager Name Role Phone Juan José Kendall MD Primary Care Provider +- [phone] Juan José Kendall MD Unavailable [phone] Encounter Details Date Type Department Care Team (Late st Contact Info) Description 09/16/2018 Transcribed Document [facility] [place] [place] Family Medicine [facility] [place] [address] ProviderLaurie MD [address] [place] [address] Social History Tobacco Use Types Packs/Day Years Used Date Smoking Tobacco: Never Assessed Comments Unknown Sex and Gender Information Value Date Recorded Sex Assigned at Not on file Legal Sex Female 2:23 PM CDT Gender Identity Not on file Sexual Orientation Not on file documented as of this encounter Miscellaneous Notes * Cerner Conversion Note - Historical ProviderMD - 09/16/2018 2:00 AM CDT Dry Cleaning Machine Operator Details Entered On: 09/16/2018 2:03 EDT Performed On: 09/16/2018 2:00 EDT by Linh Honeycutt RN Order Details Transport Mode Order Detail : Bed (including specialty) Isolation Precautions Order Detail : Standard Precautions Order Detail : 0 Nurse Collect Order Detail : 1 Lift/Transfer : Maximal assist Central Line Order Detail : Yes Room Service : Appropriate Arterial Line : No Linh Honeycutt RN - 09/16/2018 2:03 EDT documented in this encounter Plan of Treatment Not on file documented as of this encounter Visit Diagnoses Not on filedocumented in this encounter Care Teams Retail Advertising Sales Manager Relationship Specialty Start Date End Date Juan José Kendall MD [address] [facility] [address] [place] [id number] PCP - General Family Medicine 12/25/22 Juan José Kendall MD [facility] [address] [place] [address] Referring Physician Family Medicine 12/25/22 documented as of this encounter
--- OUTSIDE RECORDS SUMMARY | 2024-03-11 09:19 | XMS_ITS | Encounter Summary ---
Author Organization [employer] Address [address] [facility] [place] [address] Care Team Providers Care Feed Research Technician Name Role Phone Juan José Kendall MD Primary Care Provider +- [phone] Juan José Kendall MD Unavailable [phone] Encounter Details Date Type Department Care Team (Late st Contact Info) Description 09/17/2018 Transcribed Document [facility] [place] [facility] [place] [address] ProviderLaurie MD [address] [place] [address] Social History Tobacco Use Types Packs/Day Years Used Date Smoking Tobacco: Never Assessed Comments Unknown Sex and Gender Information Value Date Recorded Sex Assigned at Not on file Legal Sex Female 2:23 PM CDT Gender Identity Not on file Sexual Orientation Not on file documented as of this encounter Miscellaneous Notes * Cerner Conversion Note - Laurie ProviderMD - 09/17/2018 9:00 PM CDT Pain Assessment Entered On: 09/18/2018 0:58 EDT Performed On: 09/17/2018 21:10 EDT by Kelly Deng, RN Intervention Information: acetaminophen Performed by Kelly Deng, RN on 09/17/2018 20:10:00 EDT acetaminophen,500mg Oral Pain Assessment Pain Assessment : Follow-up assessment Pain Scale Goal : 3 Pain Improved by Intervention : Yes Kelly Deng, LISBETH - 09/18/2018 0:58 EDT Electronically signed by Aleks [facility] Conversion Endless Track Vehicle Supervisor Cerner at 07/24/2022 3:45 PM CDT documented in this encounter Plan of Treatment Not on file documented as of this encounter Visit Diagnoses Not on filedocumented in this encounter Care Teams Feed Research Technician Relationship Specialty Start Date End Date Juan José Kendall MD [address] [facility] [address] [place] [phone] PCP - General Family Medicine 12/25/22 Juan José Kendall MD [address] [facility] [address] [place] [phone] Referring Physician Family Medicine 12/25/22 documented as of this encounter
--- OUTSIDE RECORDS SUMMARY | 2024-03-11 09:19 | XMS_ITS | Encounter Summary ---
Author Organization [employer] Address [address] [facility] [place] [address] Care Team Providers Care Resource Efficiency Manager Name Role Phone Juan José Kendall MD Primary Care Provider + [phone] Juan José Kendall MD Unavailable [phone] Encounter Details Date Type Department Care Team (Late st Contact Info) Description 09/15/2018 Transcribed Document [facility] [place] Family Medicine [address] [place] [address] ProviderLaurie MD [address] [place] [address] Social History Tobacco Use Types Packs/Day Years Used Date Smoking Tobacco: Never Assessed Comments Unknown Sex and Gender Information Value Date Recorded Sex Assigned at Not on file Legal Sex Female 2:23 PM CDT Gender Identity Not on file Sexual Orientation Not on file documented as of this encounter Miscellaneous Notes * Cerner Conversion Note - Historical ProviderMD - 09/15/2018 5:00 PM CDT Chart Check - Review Order Profile Entered On: 09/15/2018 18:55 EDT Performed On: 09/15/2018 17:00 EDT by ENOCH PERDOMO LPN Chart Check Powerplans Initiated/Discontinued as Appropriate : Yes All Active Orders Reviewed : Yes ENOCH PERDOMO LPN - 09/15/2018 18:54 EDT documented in this encounter Plan of Treatment Not on file documented as of this encounter Visit Diagnoses Not on filedocumented in this encounter Care Teams Resource Efficiency Manager Relationship Specialty Start Date End Date Juan José Kendall MD [address] [place] [id number] PCP - General Family Medicine 12/25/22 Juan José Kendall MD [address] [place] [address] Referring Physician Family Medicine 12/25/22 documented as of this encounter
--- OUTSIDE RECORDS SUMMARY | 2024-03-11 09:19 | XMS_ITS | Encounter Summary ---
Author Organization [employer] Address [address] [place] [address] Care Team Providers Care Kettle Tender Name Role Phone Juan José Kendall MD Primary Care Provider + [phone] Juan José Kendall MD Unavailable [phone] Encounter Details Date Type Department Care Team (Late st Contact Info) Description 09/14/2018 Transcribed Document [facility] [place] [facility] [place] [address] ProviderLaurie MD [address] [place] [address] Social History Tobacco Use Types Packs/Day Years Used Date Smoking Tobacco: Never Assessed Comments Unknown Sex and Gender Information Value Date Recorded Sex Assigned at Not on file Legal Sex Female 2:23 PM CDT Gender Identity Not on file Sexual Orientation Not on file documented as of this encounter Miscellaneous Notes * Cerner Conversion Note - Historical ProviderMD - 09/14/2018 6:00 PM CDT Patch Check Entered On: 09/14/2018 18:34 EDT Performed On: 09/14/2018 18:00 EDT by Emily Fox RN Patch Check Patch Check Result : Yes Patch Check - Type of Patch : scopolamine (Transderm-Scop) Emily Fox RN - 09/14/2018 18:34 EDT documented in this encounter Plan of Treatment Not on file documented as of this encounter Visit Diagnoses Not on filedocumented in this encounter Care Teams Kettle Tender Relationship Specialty Start Date End Date Juan José Kendall MD [address] [place] [id number] PCP - General Family Medicine 12/25/22 Juan José Kendall MD [address] [place] [phone] Referring Physician Family Medicine 12/25/22 documented as of this encounter
--- OUTSIDE RECORDS SUMMARY | 2024-03-11 09:19 | XMS_ITS | Encounter Summary ---
Author Organization [employer] Address [address] [place] [address] Care Team Providers Care Hotel Maintenance Worker Name Role Phone Juan José Kendall MD Primary Care Provider +- [phone] Juan José Kendall MD Unavailable [phone] Encounter Details Date Type Department Care Team (Late st Contact Info) Description 09/16/2018 Transcribed Document [facility] [place] [facility] [place] [address] ProviderLaurie MD [address] [place] [address] Social History Tobacco Use Types Packs/Day Years Used Date Smoking Tobacco: Never Assessed Comments Unknown Sex and Gender Information Value Date Recorded Sex Assigned at Not on file Legal Sex Female 2:23 PM CDT Gender Identity Not on file Sexual Orientation Not on file documented as of this encounter Miscellaneous Notes * Cerner Conversion Note - Historical ProviderMD - 09/16/2018 3:00 PM CDT Pain Assessment Entered On: 09/16/2018 17:49 EDT Performed On: 09/16/2018 16:54 EDT by ENOCH PERDOMO LPN Intervention Information: acetaminophen Performed by ENOCH PERDOMO LPN on 09/16/2018 15:54:00 EDT acetaminophen,500mg Oral Pain Assessment Pain Assessment : Follow-up assessment Pain Scale Goal : 3 Pain Scale Used : 0-10 Scale Location : Knee, left ENOCH PERDOMO LPN - 09/16/2018 17:49 EDT Pain Scale Intensity : 1 ENOCH PERDOMO LPN - 09/16/2018 17:49 EDT Image 4 - Images currently included in the form version of this document have not been included in the text rendition version of the form. documented in this encounter Plan of Treatment Not on file documented as of this encounter Visit Diagnoses Not on filedocumented in this encounter Care Teams Hotel Maintenance Worker Relationship Specialty Start Date End Date Juan José Kendall MD [address] [facility] [address] [place] [address] PCP - General Family Medicine 12/25/22 [place] [address] [place] [address] [address] [place] [address] Referring Physician Family Medicine 12/25/22 documented as of this encounter
--- OUTSIDE RECORDS SUMMARY | 2024-03-11 09:19 | XMS_ITS | Encounter Summary ---
Author Organization [employer] Address [address] [place] [address] Care Team Providers Care Instructor Physical Education Name Role Phone Juan José Kendall MD Primary Care Provider +- [phone] Juan José Kendall MD Unavailable [phone] Encounter Details Date Type Department Care Team (Late st Contact Info) Description 09/17/2018 Transcribed Document [facility] [place] [facility] [place] [address] ProviderLaurie MD [address] [place] [address] Social History Tobacco Use Types Packs/Day Years Used Date Smoking Tobacco: Never Assessed Comments Unknown Sex and Gender Information Value Date Recorded Sex Assigned at Not on file Legal Sex Female 2:23 PM CDT Gender Identity Not on file Sexual Orientation Not on file documented as of this encounter Miscellaneous Notes * Cerner Conversion Note - Laurie ProviderMD - 09/17/2018 3:00 AM CDT Pain Assessment Entered On: 09/18/2018 0:58 EDT Performed On: 09/17/2018 5:16 EDT by Kelly Deng, RN Intervention Information: acetaminophen Performed by Kelly Deng, RN on 09/17/2018 04:16:00 EDT acetaminophen,500mg Oral Pain Assessment Pain Assessment : Follow-up assessment Pain Scale Goal : 3 Pain Improved by Intervention : Yes Kelly Deng RN - 09/18/2018 0:58 EDT documented in this encounter Plan of Treatment Not on file documented as of this encounter Visit Diagnoses Not on filedocumented in this encounter Care Teams Instructor Physical Education Relationship Specialty Start Date End Date Juan José Kendall MD [address] [facility] [address] [place] [phone] PCP - General Family Medicine 12/25/22 Juan José Kendall MD [address] [facility] [address] [place] [phone] Referring Physician Family Medicine 12/25/22 documented as of this encounter
--- OUTSIDE RECORDS SUMMARY | 2024-03-11 09:19 | XMS_ITS | Encounter Summary ---
Author Organization [employer] Address [address] [facility] [address] Care Team Providers Care Electronic Specialist Name Role Phone Juan José Kendall MD Primary Care Provider +- [phone] Juan José Kendall MD Unavailable [phone] Encounter Details Date Type Department Care Team (Late st Contact Info) Description 09/17/2018 Transcribed Document [facility] [place] [address] ProviderLaurie MD [address] [place] [address] Social History Tobacco Use Types Packs/Day Years Used Date Smoking Tobacco: Never Assessed Comments Unknown Sex and Gender Information Value Date Recorded Sex Assigned at Not on file Legal Sex Female 2:23 PM CDT Gender Identity Not on file Sexual Orientation Not on file documented as of this encounter Miscellaneous Notes * Cerner Conversion Note - Laurie ProviderMD - 09/17/2018 9:00 AM CDT Pain Assessment Entered On: 09/17/2018 13:34 EDT Performed On: 09/17/2018 10:47 EDT by Bambi Rolon Rn Intervention Information: acetaminophen Performed by Bambi Rolon Rn on 09/17/2018 09:47:00 EDT acetaminophen,500mg Oral Pain Assessment Pain Assessment : Follow-up assessment Pain Scale Goal : 3 Pain Improved by Intervention : Yes Bambi Rolon Rn - 09/17/2018 13:33 EDT documented in this encounter Plan of Treatment Not on file documented as of this encounter Visit Diagnoses Not on filedocumented in this encounter Care Teams Electronic Specialist Relationship Specialty Start Date End Date Juan José Kendall MD [address] [facility] [address] [place] [id number] PCP - General Family Medicine 12/25/22 Juan José Kendall MD [address] [facility] [address] [place] [phone] Referring Physician Family Medicine 12/25/22 documented as of this encounter
--- OUTSIDE RECORDS SUMMARY | 2024-03-11 09:20 | XMS_ITS | Encounter Summary ---
Author Organization [employer] Address [address] [facility] [facility] [place] [address] Care Team Providers Care Twister Doffer Name Role Phone Juan José eKndall MD Primary Care Provider +- [phone] Juan José Kendall MD Unavailable [phone] Encounter Details Date Type Department Care Team (Late st Contact Info) Description 09/10/2018 Transcribed Document [facility] [place] [facility] [place] [address] ProviderLaurie MD [address] [place] [address] [id number] Social History Tobacco Use Types Packs/Day Years Used Date Smoking Tobacco: Never Assessed Comments Unknown Sex and Gender Information Value Date Recorded Sex Assigned at Not on file Legal Sex Female 2:23 PM CDT Gender Identity Not on file Sexual Orientation Not on file documented as of this encounter Miscellaneous Notes * Cerner Conversion Note - Laurie ProviderMD - 09/10/2018 3:00 PM CDT Pain Assessment Entered On: 09/10/2018 16:04 EDT Performed On: 09/10/2018 16:55 EDT by ORLY RICHARDS, RN Intervention Information: acetaminophen Performed by ORLY RICHARDS, RN on 09/10/2018 15:55:00 EDT acetaminophen,500mg Oral Pain Assessment Pain Assessment : Follow-up assessment Pain Scale Used : 0-10 Scale ORLY RICHARDS RN - 09/10/2018 16:04 EDT Pain Scale Intensity : 4 ORLY RICHARDS RN - 09/10/2018 16:04 EDT Image 4 - Images currently included in the form version of this document have not been included in the text rendition version of the form. documented in this encounter Plan of Treatment Not on file documented as of this encounter Visit Diagnoses Not on filedocumented in this encounter Care Teams Twister Doffer Relationship Specialty Start Date End Date Juan José Kendall MD [address] [facility] [address] [place] [id number] PCP - General Family Medicine 12/25/22 Juan José Kendall MD [address] [facility] [address] [place] [id number] Referring Physician Family Medicine 12/25/22 documented as of this encounter
--- OUTSIDE RECORDS SUMMARY | 2024-03-11 09:20 | XMS_ITS | Encounter Summary ---
Author Organization [employer] Address [address] [place] [address] Care Team Providers Care Commercial Sewing Instructor Name Role Phone Juan José Kendall MD Primary Care Provider +- [phone] Juan José Kendall MD Unavailable [phone] Encounter Details Date Type Department Care Team (Late st Contact Info) Description 09/09/2018 Transcribed Document [facility] [place] [facility] [place] [address] ProviderLaurie MD [address] [place] [address] Social History Tobacco Use Types Packs/Day Years Used Date Smoking Tobacco: Never Assessed Comments Unknown Sex and Gender Information Value Date Recorded Sex Assigned at Not on file Legal Sex Female 2:23 PM CDT Gender Identity Not on file Sexual Orientation Not on file documented as of this encounter Miscellaneous Notes * Cerner Conversion Note - Laurie ProviderMD - 09/09/2018 12:18 PM CDT WOCN Inpatient Documentation Entered On: 09/09/2018 12:27 EDT Performed On: 09/09/2018 12:18 EDT by ALEX FREY RN WOCN Admission Date : Admit Date 09/08/2018 18:[address] : Diagnosis (2) Arthritis due to other bacteria, 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 immobilizer in place however secondary to edema and obisity, it is creating redness at the upper thigh circumferentually presently blanching, but is a very high risk left posterior heel has 2 unstageable PI, dressing with medi honeyand Allevyn heel, (found one in place but upside down) also pt has a foam egg crate type padding at ankle which is also secondary to edema and obesity is causing redness and very high risk sacrum, right heel and elbows are without issues, medial upper thighs bilat are stage 1s from ALEX Brown, RN - 09/09/2018 12:18 EDT Wound & Pressure Ulcer WOCN Wound Pressure Ulcer Documentation : Pressure Ulcer Assessment: Heel Left Posterior on 09/09/2018 12:01 by ALEX FREY, RN Present on Adm to Hosp: Yes Stage: Unstageable Device Related: Unknown Dressing Status: Intact Dressing Activity: Dressing changed Wound Bed Description: Eschar (leathery black or brown) Bed Color(s): Brown Surrounding Tissue: Edematous Drainage Amount: None Photographed: Yes Cleansing/Irrigation: Sterile saline Dressing Type/Treatment: Honey-based dressing, Other: allevyn heels Pressure Ulcer Assessment: Other: bilat medial upper thighs on 09/09/2018 12:01 by ALEX FREY, RN Present on Adm to Hosp: Yes Stage: Stage 1 Device Related: Yes Dressing Status: Left open to air Wound Bed Description: Intact skin (red), non-blanchable Bed Color(s): Red Surrounding Tissue: Edematous Drainage Amount: None WOCN Ostomy Documentation : No ostomy assessments reported. ALEX FREY, LISBETH - 09/09/2018 12:18 EDT Electronically signed by Aleks [facility] Conversion Pca Cerner at 07/24/2022 3:47 PM CDT documented in this encounter Plan of Treatment Not on file documented as of this encounter Visit Diagnoses Not on filedocumented in this encounter Care Teams Commercial Sewing Instructor Relationship Specialty Start Date End Date Juan José Kendall MD [facility] [address] [place] [id number] PCP - General Family Medicine 12/25/22 Juan José Kendall MD [address] [facility] [address] [place] [id number] Referring Physician Family Medicine 12/25/22 documented as of this encounter
--- OUTSIDE RECORDS SUMMARY | 2024-03-11 09:20 | XMS_ITS | Encounter Summary ---
Author Organization [employer] Address [address] [facility] [address] Care Team Providers Care Vice Principal Name Role Phone Juan José Kendall MD Primary Care Provider + [phone] Juan José Kendall MD Unavailable [phone] Encounter Details Date Type Department Care Team (Late st Contact Info) Description 09/12/2018 Transcribed Document [facility] [place] Family Medicine [address] [place] [address] ProviderLaurie MD [address] [place] [address] Social History Tobacco Use Types Packs/Day Years Used Date Smoking Tobacco: Never Assessed Comments Unknown Sex and Gender Information Value Date Recorded Sex Assigned at Not on file Legal Sex Female 2:23 PM CDT Gender Identity Not on file Sexual Orientation Not on file documented as of this encounter Miscellaneous Notes * Cerner Conversion Note - Historical ProviderMD - 09/12/2018 6:00 PM CDT Patch Check Entered On: 09/13/2018 10:19 EDT Performed On: 09/12/2018 18:00 EDT by ENOCH PERDOMO LPN Patch Check Patch Check Result : Yes Patch Check - Type of Patch : scopolamine (Transderm-Scop) ENOCH PERDOMO LPN - 09/13/2018 10:19 EDT documented in this encounter Plan of Treatment Not on file documented as of this encounter Visit Diagnoses Not on filedocumented in this encounter Care Teams Vice Principal Relationship Specialty Start Date End Date Juan José Kendall MD [address] [place] [id number] PCP - General Family Medicine 12/25/22 Juan José Kendall MD [address] [place] [phone] Referring Physician Family Medicine 12/25/22 documented as of this encounter
--- OUTSIDE RECORDS SUMMARY | 2024-03-11 09:20 | XMS_ITS | Encounter Summary ---
Author Organization [employer] Address [address] [place] [address] Care Team Providers Care Pipe Insulator Helper Name Role Phone Juan José Kendall MD Primary Care Provider +- [phone] Juan José Kendall MD Unavailable [phone] Encounter Details Date Type Department Care Team (Late st Contact Info) Description 09/10/2018 Transcribed Document [facility] [place] [facility] [address] ProviderLaurie MD [address] [place] [address] Social History Tobacco Use Types Packs/Day Years Used Date Smoking Tobacco: Never Assessed Comments Unknown Sex and Gender Information Value Date Recorded Sex Assigned at Not on file Legal Sex Female 2:23 PM CDT Gender Identity Not on file Sexual Orientation Not on file documented as of this encounter Miscellaneous Notes * Cerner Conversion Note - Historical ProviderMD - 09/10/2018 2:00 AM CDT Tumbler Machine Operator Helper Details Entered On: 09/10/2018 1:43 EDT Performed On: 09/10/2018 2:00 EDT by KOKO BAILEY RN Order Details Transport Mode Order Detail : Bed (including specialty) Isolation Precautions Order Detail : Standard Precautions Order Detail : 0 IV Order Detail : 1 Nurse Collect Order Detail : 1 Lift/Transfer : Maximal assist Central Line Order Detail : Yes Room Service : Appropriate KOKO BAILEY RN - 09/10/2018 1:43 EDT documented in this encounter Plan of Treatment Not on file documented as of this encounter Visit Diagnoses Not on filedocumented in this encounter Care Teams Pipe Insulator Helper Relationship Specialty Start Date End Date Juan José Kendall MD [address] [facility] [address] [place] [id number] PCP - General Family Medicine 12/25/22 Juan José Kendall MD [facility] [address] [place] [phone] Referring Physician Family Medicine 12/25/22 documented as of this encounter
--- OUTSIDE RECORDS SUMMARY | 2024-03-11 09:20 | XMS_ITS | Encounter Summary ---
Author Organization [employer] Address [address] [place] [address] Care Team Providers Care Instructor Of Nursing Name Role Phone Juan José Kendall MD Primary Care Provider + [phone] Juan José Kendall MD Unavailable [phone] Encounter Details Date Type Department Care Team (Late st Contact Info) Description 09/09/2018 Transcribed Document [facility] [place] Family Medicine [address] [place] [address] ProviderLaurie MD [address] [place] [address] Social History Tobacco Use Types Packs/Day Years Used Date Smoking Tobacco: Never Assessed Comments Unknown Sex and Gender Information Value Date Recorded Sex Assigned at Not on file Legal Sex Female 2:23 PM CDT Gender Identity Not on file Sexual Orientation Not on file documented as of this encounter Miscellaneous Notes * Cerner Conversion Note - Historical ProviderMD - 09/09/2018 5:00 PM CDT Chart Check - Review Order Profile Entered On: 09/09/2018 17:07 EDT Performed On: 09/09/2018 17:00 EDT by FRANTZ BROWN RN Chart Check Powerplans Initiated/Discontinued as Appropriate : Yes All Active Orders Reviewed : Yes FRANTZ BROWN RN - 09/09/2018 17:07 EDT documented in this encounter Plan of Treatment Not on file documented as of this encounter Visit Diagnoses Not on filedocumented in this encounter Care Teams Instructor Of Nursing Relationship Specialty Start Date End Date Juan José Kendall MD [address] [place] [id number] PCP - General Family Medicine 12/25/22 Juan José Kendall MD [address] [place] [phone] Referring Physician Family Medicine 12/25/22 documented as of this encounter
--- OUTSIDE RECORDS SUMMARY | 2024-03-11 09:20 | XMS_ITS | Encounter Summary ---
Author Organization [employer] Address [address] [place] [address] Care Team Providers Care Rubbing Bed Operator Name Role Phone Juan José Kendall MD Primary Care Provider +- [phone] Juan José Kendall MD Unavailable [phone] Encounter Details Date Type Department Care Team (Late st Contact Info) Description 09/11/2018 Transcribed Document [facility] [place] [facility] [place] [address] ProviderLaurie MD [address] [place] [address] Social History Tobacco Use Types Packs/Day Years Used Date Smoking Tobacco: Never Assessed Comments Unknown Sex and Gender Information Value Date Recorded Sex Assigned at Not on file Legal Sex Female 2:23 PM CDT Gender Identity Not on file Sexual Orientation Not on file documented as of this encounter Miscellaneous Notes * Cerner Conversion Note - Historical ProviderMD - 09/11/2018 2:00 AM CDT Gut Sorter Details Entered On: 09/11/2018 0:07 EDT Performed On: 09/11/2018 2:00 EDT by KOKO BAILEY RN Order Details Transport Mode Order Detail : Bed (including specialty) Isolation Precautions Order Detail : Standard Precautions Order Detail : 0 IV Order Detail : 1 Nurse Collect Order Detail : 1 Lift/Transfer : Maximal assist Central Line Order Detail : Yes Room Service : Appropriate KOKO BAILEY RN - 09/11/2018 0:07 EDT documented in this encounter Plan of Treatment Not on file documented as of this encounter Visit Diagnoses Not on filedocumented in this encounter Care Teams Rubbing Bed Operator Relationship Specialty Start Date End Date Juan José Kendall MD [address] [facility] [address] [place] [id number] PCP - General Family Medicine 12/25/22 Juan José Kendall MD [facility] [address] [place] [phone] Referring Physician Family Medicine 12/25/22 documented as of this encounter
--- OUTSIDE RECORDS SUMMARY | 2024-03-11 09:20 | XMS_ITS | Encounter Summary ---
Author Organization [employer] Address [address] [place] [address] Care Team Providers Care Fish Smoker Name Role Phone Juan José Kendall MD Primary Care Provider + [phone] Juan José Kendall MD Unavailable [phone] Encounter Details Date Type Department Care Team (Late st Contact Info) Description 09/11/2018 Transcribed Document [facility] [place] [facility] [place] [address] ProviderLaurie MD [address] [place] [address] Social History Tobacco Use Types Packs/Day Years Used Date Smoking Tobacco: Never Assessed Comments Unknown Sex and Gender Information Value Date Recorded Sex Assigned at Not on file Legal Sex Female 2:23 PM CDT Gender Identity Not on file Sexual Orientation Not on file documented as of this encounter Miscellaneous Notes * Cerner Conversion Note - Historical ProviderMD - 09/11/2018 9:00 PM CDT Patch Check Entered On: 09/12/2018 1:04 EDT Performed On: 09/11/2018 21:00 EDT by Linh Honeycutt RN Patch Check Patch Check Result : Yes Patch Check - Type of Patch : scopolamine (Transderm-Scop) Linh Honeycutt RN - 09/12/2018 1:04 EDT documented in this encounter Plan of Treatment Not on file documented as of this encounter Visit Diagnoses Not on filedocumented in this encounter Care Teams Fish Smoker Relationship Specialty Start Date End Date Juan José Kendall MD [address] [place] [phone] PCP - General Family Medicine 12/25/22 Juan José Kendall MD [address] [place] [phone] Referring Physician Family Medicine 12/25/22 documented as of this encounter
--- OUTSIDE RECORDS SUMMARY | 2024-03-11 09:20 | XMS_ITS | Encounter Summary ---
Author Organization [employer] Address [address] [facility] [place] [address] Care Team Providers Care Dry Food Products Mixer Name Role Phone Juan José Kendall MD Primary Care Provider + [phone] Juan José Kendall MD Unavailable [phone] Encounter Details Date Type Department Care Team (Late st Contact Info) Description 09/10/2018 Transcribed Document [facility] [place] [facility] [place] [address] ProviderLaurie MD [address] [place] [address] Social History Tobacco Use Types Packs/Day Years Used Date Smoking Tobacco: Never Assessed Comments Unknown Sex and Gender Information Value Date Recorded Sex Assigned at Not on file Legal Sex Female 2:23 PM CDT Gender Identity Not on file Sexual Orientation Not on file documented as of this encounter Miscellaneous Notes * Cerner Conversion Note - Historical ProviderMD - 09/10/2018 9:00 AM CDT CareSet Assessment Admission, [facility] Entered On: 09/10/2018 16:02 EDT Performed On: 09/10/2018 9:00 EDT by ORLY RICHARDS, RN CareSet Assessment Admission Mobility Assistance Prior to Admission : Independent Home Equipment : Cane, Shower Equipment, Walker Cane : Cane, single point Shower Equipment : Shower bench, without back Walker : Walker, front wheel ORLY RICHARDS, RN - 09/10/2018 18:10 EDT Persistent Veg State/No Consciousness : No Expression of Ideas and Wants : Expresses complex messages without difficulty and with clear easy to understand speech Understanding of Verbal Content : Understands Ac Change in Mental Status from Baseline : No ABN Behavior Fluctuates During the Day : Yes Recommend Continued Therapy at Discharge : No Disorganized or Incoherent Thinking : No Level of Consciousness is Alert (Normal) : Yes LOC Vigilant, Lethargic, Stupor or Coma : No Bladder Continence : Always continent Bowel Continence : Always continent Special Tx Procedures and Programs : None ORLY RICHARDS RN - 09/10/2018 16:01 EDT Electronically signed by Aleks [facility] Conversion Director Of Physical Therapy Cerner at 07/24/2022 3:32 PM CDT documented in this encounter Plan of Treatment Not on file documented as of this encounter Visit Diagnoses Not on filedocumented in this encounter Care Teams Dry Food Products Mixer Relationship Specialty Start Date End Date Juan José Kendall MD [address] [facility] [address] [place] [phone] PCP - General Family Medicine 12/25/22 Juan José Kendall MD [address] [facility] [address] [place] [address] Referring Physician Family Medicine 12/25/22 documented as of this encounter
--- OUTSIDE RECORDS SUMMARY | 2024-03-11 09:20 | XMS_ITS | Encounter Summary ---
Author Organization [employer] Address [address] [place] [address] Care Team Providers Care Senior Oracle Applications Developer Name Role Phone Juan José Kendall MD Primary Care Provider +- [phone] Juan José Kendall MD Unavailable [phone] Encounter Details Date Type Department Care Team (Late st Contact Info) Description 09/12/2018 Transcribed Document [facility] Family Medicine [facility] [place] [address] ProviderLaurie MD [address] [place] [address] Social History Tobacco Use Types Packs/Day Years Used Date Smoking Tobacco: Never Assessed Comments Unknown Sex and Gender Information Value Date Recorded Sex Assigned at Not on file Legal Sex Female 2:23 PM CDT Gender Identity Not on file Sexual Orientation Not on file documented as of this encounter Miscellaneous Notes * Cerner Conversion Note - Laurie ProviderMD - 09/12/2018 11:40 AM CDT Patient: TRUDI BLAIR Age: 63 [...] repair. She was more recently admitted to [facility] x[facility] earlier this month on 08/16 [...] wound care. She was transferred to [facility] [place] today for [...] improved with imodium. having some mild nausea ROS: Gen: No fevers, no chills, no [...] HTN Cancer Social History: . lives in [place]. No tobacco, ETOH, or illicit drug use. Social & Psychosocial Habits Alcohol 06/23/2018 Alcohol Use History, Social Habits No Substance Abuse 06/23/2018 Recreational Drug Use History No Tobacco 06/23/2018 Smoking Status Never (less than 100 in l Smokeless Tobacco Status Never Objective: Vitals Signs (last 24 hrs) Last Charted Minimum Maximum Temp 98.1 (SEP 12:56) 97.5 (SEP 11 19:00) 98.8 (SEP 11:00) Apical HR 66 (SEP 12 08:52) 66 (SEP 12 08:52) 66 (SEP 12 08:52) Mon HR 66 (SEP 12:56) 66 (SEP 11 14:00) 80 (SEP 11 19:00) Resp Rate 18 (SEP 12:56) 16 (SEP 11 14:00) 18 (SEP 12 07:56) SBP 133 (SEP 12 08:52) 133 (SEP 12:56) 135 (SEP 11 14:00) DBP L 54 (SEP 12 08:52) L 54 (SEP 12 07:56) 67 (SEP 11 14:00) SpO2 95 (SEP 12 07:56) 95 (SEP 12 07:56) 100 (SEP 11 14:00) PE: General: patient is alert and in no acute distress. morbidly obese HEENT: sclera white without conjunctival injection. No erythema, exudate or ulceration. No thrush present. Neck: Supple without nuchal rigidity Lungs: Clear [...] Labs (Last four charted values) WBC 7.2 (SEP 10) 7.1 (SEP 07) HB L 8.2 (EDGARD 10) L 8.1 (SEP 07) HCT L 26.4 (EDGARD 10) L 25.3 (EDGARD 07) Plt 279 (EDGARD 10) 350 (EDGARD 08) 321 (EDGARD 07) Na H 147 (EDGARD 10) H 147 (EDGARD 09) 145 (EDGARD 08) 146 (EDGARD 07) K 3.5 (EDGARD 10) L 3.3 (EDGARD 09) L 3.3 (EDGARD 08) L 3.1 (SEP 07) Cl H 114 (EDGARD 10) 112 (EDGARD 09) 111 (EDGARD 08) 110 (EDGARD 07) CO2 28 (EDGARD 10) 29 (EDGARD 09) 29 (EDGARD 08) 29 (SEP 07) BUN H 29 (EDGARD 10) H 30 (EDGARD 09) H 26 (EDGARD 08) H 30 (SEP 07) Cr H 1.50 (EDGARD 10) H 1.50 (EDGARD 09) H 1.60 (EDGARD 08) H 1.60 (EDGRAD 07) Glu R 80 (EDGARD 10) 79 (EDGARD 09) 80 (EDGARD 08) 86 (EDGARD 07) Ca 8.4 (EDGARD 10) 8.5 (EDGARD 09) 8.5 (EDGARD 08) 9.1 (EDGARD 07) AST 14 (EDGARD 10) 11 (SEP 09) ALT L 7 (SEP [...] placement --diarrhea-we'll need to monitor. Added probiotic. -nausea- with daptomycin Plan: 1. daptomycin 700 mg IV every 24 hours. Anticipated stop date is 10/05/18. 2. Weekly Groshong catheter dressing changes. 3. Weekly CBC with differential, CMP, ESR, CRP, and CPK. 4. Could switch the patient to OPAT through [facility] when she is discharged from LTAC/rehabilitation facility. 5. added probiotic 6. C diff test if still having watery diarrhea Dr. Amrita Tavares saw the patient, reviewed laboratory data, performed physical exam and agrees with above problem list and assisted with formulation of assessment and treatment plan. could consider switching to vancomycin if renal function remains stable, at least while she remains at [facility]. I will discuss with pharmacy documented in this encounter Plan of Treatment Not on file documented as of this encounter Visit Diagnoses Not on filedocumented in this encounter Care Teams Senior Oracle Applications Developer Relationship Specialty Start Date End Date Juan José Kendall MD [address] [place] [phone] PCP - General Family Medicine 12/25/22 Juan José Kendall MD [address] [place] [facility] [address] [place] [address] Referring Physician Family Medicine 12/25/22 documented as of this encounter
--- OUTSIDE RECORDS SUMMARY | 2024-03-11 09:20 | XMS_ITS | Encounter Summary ---
Author Organization [employer] Address [address] [facility] [place] [address] Care Team Providers Care Macaroni Press Operator Name Role Phone Juan José Kendall MD Primary Care Provider +- [phone] Juan José Kendall MD Unavailable [phone] Encounter Details Date Type Department Care Team (Late st Contact Info) Description 09/09/2018 Transcribed Document [facility] [place] [facility] [address] ProviderLaurie MD [address] [place] [address] [id number] Social History Tobacco Use Types Packs/Day Years Used Date Smoking Tobacco: Never Assessed Comments Unknown Sex and Gender Information Value Date Recorded Sex Assigned at Not on file Legal Sex Female 2:23 PM CDT Gender Identity Not on file Sexual Orientation Not on file documented as of this encounter Miscellaneous Notes * Cerner Conversion Note - Historical ProviderMD - 09/09/2018 3:00 PM CDT Pain Assessment Entered On: 09/09/2018 17:07 EDT Performed On: 09/09/2018 17:00 EDT by FRANTZ BROWN, RN Intervention Information: acetaminophen(Pending Validation) Performed by Nanda Don, FRANCHISE SALES MANAGER-STUDENT NURSE on 09/09/2018 16:00:00 EDT acetaminophen,500mg Oral Pain Assessment Pain Assessment : Follow-up assessment Pain Scale Used : 0-10 Scale FRANTZ BROWN, RN - 09/09/2018 17:06 EDT Pain Scale Intensity : 3 FRANTZ BROWN RN - 09/09/2018 17:06 EDT Image 4 - Images currently included in the form version of this document have not been included in the text rendition version of the form. documented in this encounter Plan of Treatment Not on file documented as of this encounter Visit Diagnoses Not on filedocumented in this encounter Care Teams Macaroni Press Operator Relationship Specialty Start Date End Date Juan José Kendall MD [address] [facility] [address] [place] [address] PCP - General Family Medicine 12/25/22 Juan José Kendall MD [address] [facility] [address] [place] [address] Referring Physician Family Medicine 12/25/22 documented as of this encounter
--- OUTSIDE RECORDS SUMMARY | 2024-03-11 09:20 | XMS_ITS | Encounter Summary ---
Author Organization [employer] Address [address] [place] [place] [address] Care Team Providers Care French Teacher Name Role Phone Juan José Kendall MD Primary Care Provider +- [phone] Juan José Kendall MD Unavailable [phone] Encounter Details Date Type Department Care Team (Late st Contact Info) Description 09/09/2018 Transcribed Document [facility] [place] [facility] [place] [address] ProviderLaurie MD [address] [place] [address] Social History Tobacco Use Types Packs/Day Years Used Date Smoking Tobacco: Never Assessed Comments Unknown Sex and Gender Information Value Date Recorded Sex Assigned at Not on file Legal Sex Female 2:23 PM CDT Gender Identity Not on file Sexual Orientation Not on file documented as of this encounter Miscellaneous Notes * Cerner Conversion Note - Laurie ProviderMD - 09/09/2018 2:04 PM CDT Pain Assessment Entered On: 09/21/2018 1:55 EDT Performed On: 09/20/2018 21:45 EDT by Mercedes Krishnan RN Intervention Information: acetaminophen-HYDROcodone Performed by Mercedes Krishnan RN on 09/20/2018 20:45:00 EDT acetaminophen-HYDROcodone,2Tab Oral,Pain (Moderate 4-6) Pain Assessment Pain Scale Goal : 3 Mercedes Krishnan RN - 09/21/2018 1:55 EDT documented in this encounter Plan of Treatment Not on file documented as of this encounter Visit Diagnoses Not on filedocumented in this encounter Care Teams French Teacher Relationship Specialty Start Date End Date Juan José Kendall MD [address] [facility] [address] [place] [address] PCP - General Family Medicine 12/25/22 Juan José Kendall MD [address] [facility] [address] [place] [address] Referring Physician Family Medicine 12/25/22 documented as of this encounter
--- OUTSIDE RECORDS SUMMARY | 2024-03-11 09:20 | XMS_ITS | Encounter Summary ---
Author Organization [employer] Address [address] [place] [address] Care Team Providers Care Shrimper Name Role Phone Juan José Kendall MD Primary Care Provider + [phone] Juan José Kendall MD Unavailable [phone] Encounter Details Date Type Department Care Team (Late st Contact Info) Description 09/11/2018 Transcribed Document [facility] [place] [address] [place] [address] ProviderLaurie MD [address] [place] [address] Social History Tobacco Use Types Packs/Day Years Used Date Smoking Tobacco: Never Assessed Comments Unknown Sex and Gender Information Value Date Recorded Sex Assigned at Not on file Legal Sex Female 2:23 PM CDT Gender Identity Not on file Sexual Orientation Not on file documented as of this encounter Miscellaneous Notes * Cerner Conversion Note - Laurie ProviderMD - 09/11/2018 5:00 PM CDT Chart Check - Review Order Profile Entered On: 09/11/2018 19:12 EDT Performed On: 09/11/2018 17:00 EDT by ORLY RICHARDS, RN Chart Check Powerplans Initiated/Discontinued as Appropriate : Yes All Active Orders Reviewed : Yes ORLY RICHARDS, RN - 09/11/2018 19:12 EDT Electronically signed by [facility] Conversion Safety Consultant Cerner at 07/24/2022 3:48 PM CDT documented in this encounter Plan of Treatment Not on file documented as of this encounter Visit Diagnoses Not on filedocumented in this encounter Care Teams Shrimper Relationship Specialty Start Date End Date Juan José Kendall MD [address] [place] [address] PCP - General Family Medicine 12/25/22 Juan José Kendall MD [address] [place] [address] Referring Physician Family Medicine 12/25/22 documented as of this encounter
--- OUTSIDE RECORDS SUMMARY | 2024-03-11 09:20 | XMS_ITS | Encounter Summary ---
Author Organization [employer] Address [address] [place] [address] Care Team Providers Care Tattoo Identifier Name Role Phone Juan José Kendall MD Primary Care Provider +- [phone] Juan José Kendall MD Unavailable [phone] Encounter Details Date Type Department Care Team (Late st Contact Info) Description 09/12/2018 Transcribed Document [facility] [place] [facility] [place] [address] ProviderLaurie MD [address] [place] [address] Social History Tobacco Use Types Packs/Day Years Used Date Smoking Tobacco: Never Assessed Comments Unknown Sex and Gender Information Value Date Recorded Sex Assigned at Not on file Legal Sex Female 2:23 PM CDT Gender Identity Not on file Sexual Orientation Not on file documented as of this encounter Miscellaneous Notes * Cerner Conversion Note - Laurie ProviderMD - 09/12/2018 9:00 PM CDT Pain Assessment Entered On: 09/13/2018 2:28 EDT Performed On: 09/12/2018 21:16 EDT by Linh Honeycutt RN Intervention Information: acetaminophen Performed by Linh Honeycutt RN on 09/12/2018 20:16:00 EDT acetaminophen,500mg Oral Pain Assessment Pain Assessment : Follow-up assessment Pain Scale Goal : 3 Pain Improved by Intervention : Yes Linh Honeycutt RN - 09/13/2018 2:28 EDT documented in this encounter Plan of Treatment Not on file documented as of this encounter Visit Diagnoses Not on filedocumented in this encounter Care Teams Tattoo Identifier Relationship Specialty Start Date End Date Juan José Kendall MD [address] [facility] [address] [place] [address] PCP - General Family Medicine 12/25/22 Juan José Kendall MD [address] [facility] [address] [place] [address] Referring Physician Family Medicine 12/25/22 documented as of this encounter
--- OUTSIDE RECORDS SUMMARY | 2024-03-11 09:20 | XMS_ITS | Encounter Summary ---
Author Organization [employer] Address [address] [facility] [facility] [place] [address] Care Team Providers Care Supervisor Microwave Name Role Phone Juan José Kendall MD Primary Care Provider +- [phone] Juan José Kendall MD Unavailable [phone] Encounter Details Date Type Department Care Team (Late st Contact Info) Description 09/12/2018 Transcribed Document [facility] [place] [facility] [place] [address] Laurie Garcia MD [address] [place] [address] Social History Tobacco Use Types Packs/Day Years Used Date Smoking Tobacco: Never Assessed Comments Unknown Sex and Gender Information Value Date Recorded Sex Assigned at Not on file Legal Sex Female 2:23 PM CDT Gender Identity Not on file Sexual Orientation Not on file documented as of this encounter Miscellaneous Notes * Cerner Conversion Note - Laurie Garcia MD - 09/12/2018 10:34 AM CDT [facility] Inpatient Documentation Entered On: 09/12/2018 10:45 EDT Performed On: 09/12/2018 10:34 EDT by ALEX FREY RN WOCN Admission [...] UNSPECIFIED JOINT WOCN Assessment Summary : pt seen, wound vac canister full and dressing due today, canster switched out and new prevena dressing applied seephotos mihaela remain edges approc. pink eggcrate protection inside left immobilizer is causing reddened indentions in pt's lower leg, turned over will monitor. left heel with unstageable PI see above pt c/o pain in right heel red but blanches well allevyn heel and prevelons on both ALEX FREY RN - 09/12/2018 10:34 EDT Wound & Pressure Ulcer WOCN Wound Pressure Ulcer Documentation : Agpgwszzu-Ocjaxo-Rzam Abnormality: Knee Left Midline on 09/12/2018 10:28 by ALEX FREY RN I/W/A Type: Incision, closed I/W/A Dressing Status: Drainage present, Intact I/W/A Dressing Activity: Dressing changed I/W/A Wound Bed Description: Stapled I/W/A Wound Edge: Approximated I/W/A Surrounding Tissue: Edematous I/W/A Drainage Amount: Copious I/W/A Drainage Description: Sanguineous I/W/A Photographed: Yes I/W/A Cleansing/Irrigation: Sterile saline I/W/A Dressing Type/Treatment: NPWT Negative Pressure Wound Therapy Activity: Dressing changed NPWT Device Used: Prevena Type of Foam/Gauze Removed: Other: prevena Number of Other Pieces Removed: 1 Type of Foam/Gauze Applied: Other: prevena Number of Other Pieces Applied: 1 NPWT Pressure: Continuous NPWT Pressure Settin NPWT Canister Changed: Yes NPWT Canister Level: 500 Pressure Ulcer Assessment: Heel Left Posterior on [...] medial upper thighs on 09/09/2018 12:01 by TK, ALEX, RN Present on Adm to Hosp: Yes Stage: Stage 1 Device Related: Yes Dressing Status: Left open to air Wound Bed Description: Intact skin (red), non-blanchable Bed Color(s): Red Surrounding Tissue: Edematous Drainage Amount: None WOCN Ostomy Documentation : No ostomy assessments reported. ALEX FREY RN - 09/12/2018 10:34 EDT Electronically signed by [facility] Conversion Service Dispatcher Cerner at 07/24/2022 3:51 PM CDT documented in this encounter Plan of Treatment Not on file documented as of this encounter Visit Diagnoses Not on filedocumented in this encounter Care Teams Supervisor Microwave Relationship Specialty Start Date End Date Juan José Kendall MD [address] [facility] [address] [place] [address] PCP - General Family Medicine 12/25/22 Juan José Kendall MD [address] [facility] [address] [place] [phone] Referring Physician Family Medicine 12/25/22 documented as of this encounter
--- OUTSIDE RECORDS SUMMARY | 2024-03-11 09:20 | XMS_ITS | Encounter Summary ---
Author Organization [employer] Address [address] [place] [address] Care Team Providers Care Supplier Relationship Director Name Role Phone Juan José Kendall MD Primary Care Provider +- [phone] Juan José Kendall MD Unavailable [phone] Encounter Details Date Type Department Care Team (Late st Contact Info) Description 09/12/2018 Transcribed Document [facility] [place] Medicine [facility] [place] [address] ProviderLaurie MD [address] [place] [address] Social History Tobacco Use Types Packs/Day Years Used Date Smoking Tobacco: Never Assessed Comments Unknown Sex and Gender Information Value Date Recorded Sex Assigned at Not on file Legal Sex Female 2:23 PM CDT Gender Identity Not on file Sexual Orientation Not on file documented as of this encounter Miscellaneous Notes * Cerner Conversion Note - Historical ProviderMD - 09/12/2018 2:00 AM CDT Police Officer Crime Prevention Details Entered On: 09/12/2018 2:10 EDT Performed On: 09/12/2018 2:00 EDT by Linh Honeycutt RN Order Details Transport Mode Order Detail : Bed (including specialty) Isolation Precautions Order Detail : Standard Precautions Order Detail : 0 Oxygen Order Detail : 0 Nurse Collect Order Detail : 1 Lift/Transfer : Maximal assist Central Line Order Detail : Yes Room Service : Appropriate Linh Honeycutt RN - 09/12/2018 2:10 EDT documented in this encounter Plan of Treatment Not on file documented as of this encounter Visit Diagnoses Not on filedocumented in this encounter Care Teams Supplier Relationship Director Relationship Specialty Start Date End Date Juan José Kendall MD [address] [facility] [address] [place] [phone] PCP - General Family Medicine 12/25/22 Juan José Kendall MD [facility] [place] [address] [place] [address] Referring Physician Family Medicine 12/25/22 documented as of this encounter
--- OUTSIDE RECORDS SUMMARY | 2024-03-11 09:20 | XMS_ITS | Encounter Summary ---
Author Organization [employer] Address [address] [place] [address] Care Team Providers Care Boatbuilder Wood Name Role Phone Juan José Kendall MD Primary Care Provider + [phone] Juan José Kendall MD Unavailable [phone] Encounter Details Date Type Department Care Team (Late st Contact Info) Description 09/11/2018 Transcribed Document [facility] [place] [address] [place] [address] ProviderLaurie MD [address] [place] [address] Social History Tobacco Use Types Packs/Day Years Used Date Smoking Tobacco: Never Assessed Comments Unknown Sex and Gender Information Value Date Recorded Sex Assigned at Not on file Legal Sex Female 2:23 PM CDT Gender Identity Not on file Sexual Orientation Not on file documented as of this encounter Miscellaneous Notes * Cerner Conversion Note - Laurie ProviderMD - 09/11/2018 5:00 AM CDT Chart Check - Review Order Profile Entered On: 09/11/2018 5:22 EDT Performed On: 09/11/2018 5:00 EDT by KOKO BAILEY RN Chart Check Powerplans Initiated/Discontinued as Appropriate : Yes All Active Orders Reviewed : Yes KOKO BAILEY RN - 09/11/2018 5:20 EDT documented in this encounter Plan of Treatment Not on file documented as of this encounter Visit Diagnoses Not on filedocumented in this encounter Care Teams Boatbuilder Wood Relationship Specialty Start Date End Date Juan José Kendall MD [address] [place] [address] PCP - General Family Medicine 12/25/22 Juan José Kendall MD [address] [place] [phone] Referring Physician Family Medicine 12/25/22 documented as of this encounter
--- OUTSIDE RECORDS SUMMARY | 2024-03-11 09:20 | XMS_ITS | Encounter Summary ---
Author Organization [employer] Address [address] [place] [address] Care Team Providers Care Financial Data Analyst Name Role Phone Juan José Kendall MD Primary Care Provider +- [phone] Juan José Kendall MD Unavailable [phone] Encounter Details Date Type Department Care Team (Late st Contact Info) Description 09/11/2018 Transcribed Document [facility] [place] [address] ProviderLaurie MD [address] [place] [address] Social History Tobacco Use Types Packs/Day Years Used Date Smoking Tobacco: Never Assessed Comments Unknown Sex and Gender Information Value Date Recorded Sex Assigned at Not on file Legal Sex Female 2:23 PM CDT Gender Identity Not on file Sexual Orientation Not on file documented as of this encounter Miscellaneous Notes * Cerner Conversion Note - Historical ProviderMD - 09/11/2018 3:00 AM CDT Pain Assessment Entered On: 09/11/2018 5:23 EDT Performed On: 09/11/2018 5:03 EDT by KOKO BAILEY RN Intervention Information: acetaminophen Performed by KOKO BAILEY RN on 09/11/2018 04:03:00 EDT acetaminophen,500mg Oral Pain Assessment Pain Assessment : Follow-up assessment Pain Scale Used : 0-10 Scale KOKO BAILEY RN - 09/11/2018 5:22 EDT Pain Scale Intensity : 0 KOKO BAILEY RN - 09/11/2018 5:22 EDT Image 4 - Images currently included in the form version of this document have not been included in the text rendition version of the form. documented in this encounter Plan of Treatment Not on file documented as of this encounter Visit Diagnoses Not on filedocumented in this encounter Care Teams Financial Data Analyst Relationship Specialty Start Date End Date Juan José Kendall MD [address] [facility] [address] [place] [phone] PCP - General Family Medicine 12/25/22 Juan José Kendall MD [address] [facility] [address] [place] [address] Referring Physician Family Medicine 12/25/22 documented as of this encounter
--- OUTSIDE RECORDS SUMMARY | 2024-03-11 09:20 | XMS_ITS | Encounter Summary ---
Author Organization [employer] Address [address] [place] [address] Care Team Providers Care Plant Ecologist Name Role Phone Juan José Kendall MD Primary Care Provider +- [phone] Juan José Kendall MD Unavailable [phone] Encounter Details Date Type Department Care Team (Late st Contact Info) Description 09/13/2018 Transcribed Document [facility] [place] [facility] [place] [address] ProviderLaurie MD [address] [place] [id number] Social History Tobacco Use Types Packs/Day Years Used Date Smoking Tobacco: Never Assessed Comments Unknown Sex and Gender Information Value Date Recorded Sex Assigned at Not on file Legal Sex Female 2:23 PM CDT Gender Identity Not on file Sexual Orientation Not on file documented as of this encounter Miscellaneous Notes * Cerner Conversion Note - Historical ProviderMD - 09/13/2018 3:00 PM CDT Pain Assessment Entered On: 09/13/2018 17:37 EDT Performed On: 09/13/2018 15:12 EDT by ENOCH PERDOMO LPN Intervention Information: acetaminophen Performed by ENOCH PERDOMO LPN on 09/13/2018 14:12:00 EDT acetaminophen,500mg Oral Pain Assessment Pain Assessment : Follow-up assessment Pain Scale Goal : 3 Pain Scale Used : 0-10 Scale Location : Leg, left ENOCH PERDOMO LPN - 09/13/2018 17:37 EDT Pain Scale Intensity : 0 ENOCH PERDOMO LPN - 09/13/2018 17:37 EDT Image 4 - Images currently included in the form version of this document have not been included in the text rendition version of the form. documented in this encounter Plan of Treatment Not on file documented as of this encounter Visit Diagnoses Not on filedocumented in this encounter Care Teams Plant Ecologist Relationship Specialty Start Date End Date Juan José Kendall MD [address] [facility] [address] [place] [phone] PCP - General Family Medicine 12/25/22 [place] [address] [place] [address] [address] [place] [address] Referring Physician Family Medicine 12/25/22 documented as of this encounter
--- OUTSIDE RECORDS SUMMARY | 2024-03-11 09:20 | XMS_ITS | Encounter Summary ---
Author Organization [employer] Address [address] [facility] [place] [address] Care Team Providers Care Brazing Furnace Operator Name Role Phone Juan José Kendall MD Primary Care Provider + [phone] Juan José Kendall MD Unavailable [phone] Encounter Details Date Type Department Care Team (Late st Contact Info) Description 09/12/2018 Transcribed Document [facility] [place] [facility] [place] [address] ProviderLaurie MD [address] [place] [address] Social History Tobacco Use Types Packs/Day Years Used Date Smoking Tobacco: Never Assessed Comments Unknown Sex and Gender Information Value Date Recorded Sex Assigned at Not on file Legal Sex Female 2:23 PM CDT Gender Identity Not on file Sexual Orientation Not on file documented as of this encounter Miscellaneous Notes * Cerner Conversion Note - Historical ProviderMD - 09/12/2018 9:00 PM CDT Patch Check Entered On: 09/13/2018 2:28 EDT Performed On: 09/12/2018 21:00 EDT by Linh Honeycutt RN Patch Check Patch Check Result : Yes Patch Check - Type of Patch : scopolamine (Transderm-Scop) Patch Check - Location : Right Ear Linh Honeycutt RN - 09/13/2018 2:28 EDT documented in this encounter Plan of Treatment Not on file documented as of this encounter Visit Diagnoses Not on filedocumented in this encounter Care Teams Brazing Furnace Operator Relationship Specialty Start Date End Date Juan José Kendall MD [address] [place] [phone] PCP - General Family Medicine 12/25/22 Juan José Kendall MD [address] [place] [address] Referring Physician Family Medicine 12/25/22 documented as of this encounter
--- OUTSIDE RECORDS SUMMARY | 2024-03-11 09:20 | XMS_ITS | Encounter Summary ---
Author Organization [employer] Address [address] [facility] [facility] [place] [address] Care Team Providers Care Box Printer Name Role Phone Juan José Kendall MD Primary Care Provider +- [phone] Juan José Kendall MD Unavailable [phone] Encounter Details Date Type Department Care Team (Late st Contact Info) Description 09/09/2018 Transcribed Document [facility] Family [facility] [place] [address] ProviderLaurie MD [address] [place] [id number] Social History Tobacco Use Types Packs/Day Years Used Date Smoking Tobacco: Never Assessed Comments Unknown Sex and Gender Information Value Date Recorded Sex Assigned at Not on file Legal Sex Female 2:23 PM CDT Gender Identity Not on file Sexual Orientation Not on file documented as of this encounter Miscellaneous Notes * Cerner Conversion Note - Historical ProviderMD - 09/09/2018 2:03 PM CDT Treatment Intervention, PT Entered On: 09/19/2018 16:24 EDT Performed On: 09/19/2018 14:34 EDT by Awilda Mallory Car Changer General Information, PT Visit Type, PT : Treatment Note Patient Orders : Order Date Order Ordering 09/08/2018 20:45 PT Evaluation and Treatment Ordered By: JONES HIDALGO MD-INT 09/09/2018 14:03 PT Additional Treatment Ordered By: MONICA ROBIN, EDWIN 09/15/2018 16:36 Consult to Physical Therapy Ordered By: JONES HIDALGO MD-INT Active Diagnoses : 09/09/2018 00:00 Acute embolism and thrombosis of unspecified vein 09/09/2018 00:00 Acute kidney failure, unspecified 09/09/2018 00:00 Anemia, unspecified 09/09/2018 00:00 Bacteremia 09/09/2018 00:00 Essential (primary) hypertension 09/09/2018 00:00 Gastro-esophageal reflux disease without esophagitis 09/09/2018 00:00 Mixed hyperlipidemia 09/09/2018 00:00 Morbid (severe) obesity due to excess calories 09/09/2018 00:00 Obstructive sleep apnea (adult) (pediatric) 09/09/2018 00:00 Unspecified infectious disease Admission Date : 09/08/2018 18:19 Co-treated by, PT : Occupational Therapist Assisted by, PT : automobile technician/aide Personal Devices : Personal Devices Glasses Assistive Devices : Assistive Devices No Devices Recorded Precautions in Place : Fall prevention measures Awilda Mallory Car Changer - 09/19/2018 16:19 EDT General Status Patient Received Status : Supine in bed Treatment Start Time : 09/19/2018 14:09 EDT Patient Left Status : Supine in bed, RN/PCT informed, Family/Visitors at bedside, All needs met and within reach RN/PCT Informed Comment : alekg Jasmyne Treatment End Time : 09/19/2018 14:34 EDT Treatment Time : 25 Minute(s) Awilda Mallory Car Changer - 09/19/2018 16:19 EDT Therapeutic Activities Sitting Activities Grid Activity #1 Activities : Static Position : Sit unsupported Time : 10 minutes Assistance : Supervision Patient Response/Comment : pt sat EOB with LLE supported Awilda Mallory Car Changer - 09/19/2018 16:19 EDT Functional Mobility Mobility Grid Supine to Sit : Rehab Moderate assistance (Comment: x 2 [Awilda Mallory Car Changer - 09/19/2018 16:19 EDT] ) Sit to Supine : Rehab Moderate assistance (Comment: x 2 [Awilda Mallory Car Changer - 09/19/2018 16:19 EDT] ) Awilda Mallory Car Changer - 09/19/2018 16:19 EDT Gait Training/Assessment, PT Gait Assistance Level : Unable to assess/activity not appropriate Awilda Mallory Car Changer - 09/19/2018 16:19 EDT Cognitive Treatment, PT Orientation : Oriented x 4 Awilda Mallory Car Changer - 09/19/2018 16:19 EDT Edu Topics Physical Therapy Education Grid Bed Mobility Training : Needs further teaching Gait Training : Needs further teaching Role of Physical Therapy : Verbalizes understanding Transfer Training : Needs further teaching Awilda Mallory Car Changer - 09/19/2018 16:19 EDT Indication Assesessment, PT Physical Therapy Indicated : Yes Awilda Mallory Car Changer - 09/19/2018 16:19 EDT Plan of Care, PT PT Tx Plan/Goals Established w Patient : Yes Awilda Mallory Car Changer - 09/19/2018 16:19 EDT Short Term Goals Mobility/Bed Mobility STG PT Grid Goal #1 Goal #2 Activity : Supine to sit Sit to stand Assist : Assist, moderate Assist, moderate Date to Meet : 09/23/2018 EDT 09/23/2018 EDT Goal Status : Goal met Initial goal Date Met : 09/12/2018 EDT Comment : TTWAwilda Fry Car Changer - 09/19/2018 16:19 EDT Awilda Mallory Car Changer - 09/19/2018 16:19 EDT Wood Milling Machine Tender Goals Mobility/Bed Mobility LTG PT Grid Goal #1 Goal #2 Activity : Supine to sit Sit to stand Assist : Assist, minimal Assist, minimal Date to Meet : 10/07/2018 EDT 10/07/2018 EDT Goal Status : Goal met Intial Goal Date Met : 09/12/2018 EDT Comment : Awilda Barba Car Changer - 09/19/2018 16:19 EDT Awilda Mallory Car Changer - 09/19/2018 16:19 EDT Transfer LTG Grid Goal #1 Destination : Chair, with arms Assist : Assist, minimal Date to Meet : 10/07/2018 EDT Goal Status : Intial Goal Comment : Awilda Barba Car Changer - 09/19/2018 16:19 EDT Treatment Note Subjective Comment : pt agreeable to PTx, nsg cleared pt for PTx Additional Objective Information : pt attempted to stand but was not able to lift self off bed Assessment : pt very anxious about moving due to not wanting to increase pain in L knee Plan for Treatment : continue POC Mallory, Awidla, Car Changer - 09/19/2018 16:19 EDT Pain Assessment Pain Score Post-Intervention. : 4 Location : Knee, left Pain Improved by : Medication, Relaxation, Repositioning Awilda Mallory Car Changer - 09/19/2018 16:19 EDT Image 1 - Images currently included in the form version of this document have not been included in the text rendition version of the form. Anticipated Discharge Needs, OT/PT Anticipated Discharge to : Unit, rehabilitation Recommend Continued Therapy at Discharge : Yes Awilda Mallory Car Changer - 09/19/2018 16:19 EDT Welty PT Charges PT Ther Activities Ea 15 Min : 2 Awilda Mallory Car Changer - 09/19/2018 16:19 EDT documented in this encounter Plan of Treatment Not on file documented as of this encounter Visit Diagnoses Not on filedocumented in this encounter Care Teams Box Printer Relationship Specialty Start Date End Date Juan José Kendall MD [address] [address] [address] [place] [address] PCP - General Family Medicine 12/25/22 Juan José Kendall MD [address] [facility] [address] [place] [address] Referring Physician Family Medicine 12/25/22 documented as of this encounter
--- OUTSIDE RECORDS SUMMARY | 2024-03-11 09:20 | XMS_ITS | Encounter Summary ---
Author Organization [employer] Address [address] [place] [address] Care Team Providers Care Documentation Supervisor Name Role Phone Juan José Kendall MD Primary Care Provider +- [phone] Juan José Kendall MD Unavailable [phone] Encounter Details Date Type Department Care Team (Late st Contact Info) Description 09/09/2018 Transcribed Document [facility] [place] Family Medicine [facility] [place] [address] ProviderLaurie MD [address] [place] [address] Social History Tobacco Use Types Packs/Day Years Used Date Smoking Tobacco: Never Assessed Comments Unknown Sex and Gender Information Value Date Recorded Sex Assigned at Not on file Legal Sex Female 2:23 PM CDT Gender Identity Not on file Sexual Orientation Not on file documented as of this encounter Miscellaneous Notes * Cerner Conversion Note - Historical ProviderMD - 09/09/2018 2:00 AM CDT Resort Keeper Details Entered On: 09/09/2018 2:26 EDT Performed On: 09/09/2018 2:00 EDT by Linh Honeycutt RN Order Details Transport Mode Order Detail : Bed (including specialty) Isolation Precautions Order Detail : Standard Precautions Order Detail : 0 Nurse Collect Order Detail : 1 Lift/Transfer : Maximal assist Central Line Order Detail : Yes Room Service : Appropriate Lnih Honeycutt RN - 09/09/2018 2:25 EDT documented in this encounter Plan of Treatment Not on file documented as of this encounter Visit Diagnoses Not on filedocumented in this encounter Care Teams Documentation Supervisor Relationship Specialty Start Date End Date Juan José Kendall MD [address] [facility] [address] [place] [address] PCP - General Family Medicine 12/25/22 Juan José Kendall MD [address] [facility] [address] [place] [address] Referring Physician Family Medicine 12/25/22 documented as of this encounter
--- OUTSIDE RECORDS SUMMARY | 2024-03-11 09:20 | XMS_ITS | Encounter Summary ---
Author Organization [employer] Address [address] [place] [address] Care Team Providers Care News Videographer Name Role Phone Juan José Kendall MD Primary Care Provider +- [phone] Juan José Kendall MD Unavailable [phone] Encounter Details Date Type Department Care Team (Late st Contact Info) Description 09/09/2018 Transcribed Document [facility] Family Medicine [facility] [place] [address] ProviderLaurie MD [address] [place] [address] Social History Tobacco Use Types Packs/Day Years Used Date Smoking Tobacco: Never Assessed Comments Unknown Sex and Gender Information Value Date Recorded Sex Assigned at Not on file Legal Sex Female 2:23 PM CDT Gender Identity Not on file Sexual Orientation Not on file documented as of this encounter Miscellaneous Notes * Cerner Conversion Note - Laurie ProviderMD - 09/09/2018 2:05 PM CDT Pain Assessment Entered On: 10/05/2018 19:13 EDT Performed On: 10/05/2018 19:17 EDT by Lisa Haile RN Intervention Information: oxyCODONE Performed by Lisa Haile RN on 10/05/2018 18:17:00 EDT oxyCODONE,10mg Oral,Pain (Severe 7-10) Pain Assessment Pain Scale Goal : 3 Pain Scale Used : 0-10 Scale Location : Knee, left Onset : Acute Pain Improved by Intervention : Yes Pain Comment : patient states improvement Lisa Haile RN - 10/05/2018 19:13 EDT Pain Scale Intensity : 3 Lisa Haile, LISBETH - 10/05/2018 19:13 EDT Image 4 - Images currently included in the form version of this document have not been included in the text rendition version of the form. documented in this encounter Plan of Treatment Not on file documented as of this encounter Visit Diagnoses Not on filedocumented in this encounter Care Teams News Videographer Relationship Specialty Start Date End Date Juan José Kendall MD [address] [facility] [address] [place] [address] PCP - General Family Medicine 12/25/22 Juan José Kendall MD [address] [facility] [address] [place] [address] Referring Physician Family Medicine 12/25/22 documented as of this encounter
--- OUTSIDE RECORDS SUMMARY | 2024-03-11 09:20 | XMS_ITS | Encounter Summary ---
Author Organization [employer] Address [address] [place] [address] Care Team Providers Care Director Agricultural Services Name Role Phone Juan José Kendall MD Primary Care Provider + [phone] Juan José Kendall MD Unavailable [phone] Encounter Details Date Type Department Care Team (Late st Contact Info) Description 09/10/2018 Transcribed Document [facility] Family [place] [facility] [place] [address] ProviderLaurie MD [address] [place] [address] Social History Tobacco Use Types Packs/Day Years Used Date Smoking Tobacco: Never Assessed Comments Unknown Sex and Gender Information Value Date Recorded Sex Assigned at Not on file Legal Sex Female 2:23 PM CDT Gender Identity Not on file Sexual Orientation Not on file documented as of this encounter Miscellaneous Notes * Cerner Conversion Note - Laurie ProviderMD - 09/10/2018 5:00 PM CDT Chart Check - Review Order Profile Entered On: 09/10/2018 16:05 EDT Performed On: 09/10/2018 17:00 EDT by ORLY RICHARDS, RN Chart Check Powerplans Initiated/Discontinued as Appropriate : Yes All Active Orders Reviewed : Yes ORLY RICHARDS RN - 09/10/2018 16:05 EDT Electronically signed by Aleks [facility] Conversion Account Manager Trainee Cerner at 07/24/2022 3:58 PM CDT documented in this encounter Plan of Treatment Not on file documented as of this encounter Visit Diagnoses Not on filedocumented in this encounter Care Teams Director Agricultural Services Relationship Specialty Start Date End Date Juan José Kendall MD [address] [place] [address] PCP - General Family Medicine 12/25/22 Juan José Kendall MD [address] [place] [address] Referring Physician Family Medicine 12/25/22 documented as of this encounter
--- OUTSIDE RECORDS SUMMARY | 2024-03-11 09:20 | XMS_ITS | Encounter Summary ---
Author Organization [employer] Address [address] [facility] [place] [address] Care Team Providers Care Urban And Regional Planner Name Role Phone Juan José Kendall MD Primary Care Provider +- [phone] Juan José Kendall MD Unavailable [phone] Encounter Details Date Type Department Care Team (Late st Contact Info) Description 09/12/2018 Transcribed Document [facility] [place] [address] ProviderLaurie MD [address] [place] [address] Social History Tobacco Use Types Packs/Day Years Used Date Smoking Tobacco: Never Assessed Comments Unknown Sex and Gender Information Value Date Recorded Sex Assigned at Not on file Legal Sex Female 2:23 PM CDT Gender Identity Not on file Sexual Orientation Not on file documented as of this encounter Miscellaneous Notes * Cerner Conversion Note - Historical ProviderMD - 09/12/2018 9:00 AM CDT Pain Assessment Entered On: 09/12/2018 9:49 EDT Performed On: 09/12/2018 9:52 EDT by ENOCH PERDOMO LPN Intervention Information: acetaminophen Performed by ENOCH PERDOMO LPN on 09/12/2018 08:52:00 EDT acetaminophen,500mg Oral Pain Assessment Pain Assessment : Follow-up assessment Pain Scale Goal : 3 Pain Scale Used : 0-10 Scale Location : Leg, left ENOCH PERDOMO LPN - 09/12/2018 9:48 EDT Pain Scale Intensity : 0 ENOCH PERDOMO LPN - 09/12/2018 9:48 EDT Image 4 - Images currently included in the form version of this document have not been included in the text rendition version of the form. documented in this encounter Plan of Treatment Not on file documented as of this encounter Visit Diagnoses Not on filedocumented in this encounter Care Teams Urban And Regional Planner Relationship Specialty Start Date End Date Juan José Kendall MD [address] [facility] [address] [place] [address] PCP - General Family Medicine 12/25/22 [place] [address] [place] [address] [address] [place] [address] Referring Physician Family Medicine 12/25/22 documented as of this encounter
--- OUTSIDE RECORDS SUMMARY | 2024-03-11 09:20 | XMS_ITS | Encounter Summary ---
Author Organization [employer] Address [address] [place] [address] Care Team Providers Care Cook Chef Name Role Phone Juan José Kendall MD Primary Care Provider + [phone] Juan José Kendall MD Unavailable [phone] Encounter Details Date Type Department Care Team (Late st Contact Info) Description 09/11/2018 Transcribed Document [facility] Family Medicine [facility] [place] [address] ProviderLaurie MD [address] [place] [address] Social History Tobacco Use Types Packs/Day Years Used Date Smoking Tobacco: Never Assessed Comments Unknown Sex and Gender Information Value Date Recorded Sex Assigned at Not on file Legal Sex Female 2:23 PM CDT Gender Identity Not on file Sexual Orientation Not on file documented as of this encounter Miscellaneous Notes * Cerner Conversion Note - Laurie Garcia MD - 09/11/2018 2:52 PM CDT Patient: TRUDI BLAIR Age: 63 [...] pain under control, no trouble w. urination. ???Diarrhea better ???Nausea improving ???Hypernatremia ???Progressive improvement of renal function Review of Systems Constitutional: No [...] mL 700 mg 14 mL, IV Piggyback, [id number] heparin 5,000 units/1 mL inj 5,000 Units 1 mL, SubCutaneous, Q8HInt metoclopramide 10 mg tab 10 mg 1 Tab, Oral, BID metoprolol tartrate 25 mg tab 25 mg 1 Tab, Oral, Daily ondansetron 4 mg/2 mL inj 4 mg 2 mL, IV Push, [id number] pantoprazole EC 40 mg tab 40 mg [...] Stress incontinence Physical Examination VS/Measurements Vital Measurements 09/11/2018 14:00 EDT Temperature Source Oral Temperature Mode Fahrenheit Temperature, Fahrenheit 98.8 Deg F Clinical Temperature, C 37.1 Deg C Heart Rate Monitored 66 bpm Respiratory Rate 16 Breaths/Min Systolic Blood Pressure 135 mmHg Diastolic Blood Pressure 67 mmHg Oxygen Saturation 100 % General: Alert and [...] Review / Management Results review: All Results 09/11/2018 4:12 EDT Sodium Level 147 mmol/L HI Potassium Level 3.3 mmol/L LOW Chloride Level 112 mmol/L Carbon Dioxide Level 29 mmol/L Anion Gap 9 Glucose Level 79 mg/dL Blood Urea Nitrogen 30 mg/dL HI Creatinine Level 1.50 mg/dL HI eGFR 42 mL/min/1.73m2 LOW eGFR NonAfrican 35 mL/min/1.73m2 LOW Bun/Creatinine 20.0 Calcium Level 8.5 mg/dL 09/10/2018 4:55 EDT Sodium Level 145 mmol/L Potassium Level 3.3 mmol/L LOW Chloride Level 111 mmol/L Carbon Dioxide Level 29 mmol/L Anion Gap 8 LOW Glucose Level 80 mg/dL Blood Urea Nitrogen 26 mg/dL HI Creatinine Level 1.60 mg/dL HI eGFR 39 mL/min/1.73m2 LOW eGFR NonAfrican 32 mL/min/1.73m2 LOW Bun/Creatinine 16.2 Calcium Level 8.5 mg/dL . Condition: Stable. [...] Admitting, Medical. MRSA and Enterobacter Bacteremia - Discharge, Medical. Anemia - Admitting, Medical. Left posterior vein thrombosis - Admitting, Medical. Course: Plan/ cont. current care, pt/ot, encourage oral fluid intake, nutritional support, encourage use of respirometer, motoring blood pressure, renal function, blood glucose, and urine output. -Continue on IV antibiotics as recommended by infectious disease -Continue wound care -Pain control -DVT prophylaxis -Close monitoring fluid and electrolytes -Scheduled when necessary nebs -Close monitoring her symptoms with diarrhea and nausea -For risk precautions -Sleep apnea precautions -Stress ulcer prophylaxis. documented in this encounter Plan of Treatment Not on file documented as of this encounter Visit Diagnoses Not on filedocumented in this encounter Care Teams Cook Chef Relationship Specialty Start Date End Date Juan José Kendall MD [address] [facility] [address] [place] [address] PCP - General Family Medicine 12/25/22 Juan José Kendall MD [address] [facility] [address] [place] [address] Referring Physician Family Medicine 12/25/22 documented as of this encounter
--- OUTSIDE RECORDS SUMMARY | 2024-03-11 09:20 | XMS_ITS | Encounter Summary ---
Author Organization [employer] Address [address] [place] [address] Care Team Providers Care Cadastral Surveyor Name Role Phone Juan José Kendall MD Primary Care Provider +- [phone] Juan José Kendall MD Unavailable [phone] Encounter Details Date Type Department Care Team (Late st Contact Info) Description 09/13/2018 Transcribed Document [facility] [place] [address] ProviderLaurie MD [address] [place] [address] Social History Tobacco Use Types Packs/Day Years Used Date Smoking Tobacco: Never Assessed Comments Unknown Sex and Gender Information Value Date Recorded Sex Assigned at Not on file Legal Sex Female 2:23 PM CDT Gender Identity Not on file Sexual Orientation Not on file documented as of this encounter Miscellaneous Notes * Cerner Conversion Note - Laurie ProviderMD - 09/13/2018 3:00 AM CDT Pain Assessment Entered On: 09/13/2018 6:33 EDT Performed On: 09/13/2018 4:24 EDT by Linh Honeycutt RN Intervention Information: acetaminophen Performed by Linh Honeycutt RN on 09/13/2018 03:24:00 EDT acetaminophen,500mg Oral Pain Assessment Pain Assessment : Follow-up assessment Pain Scale Goal : 3 Pain Improved by Intervention : Yes Linh Honeycutt RN - 09/13/2018 6:32 EDT documented in this encounter Plan of Treatment Not on file documented as of this encounter Visit Diagnoses Not on filedocumented in this encounter Care Teams Cadastral Surveyor Relationship Specialty Start Date End Date Juan José Kendall MD [address] [facility] [address] [place] [address] PCP - General Family Medicine 12/25/22 Juan José Kendall MD [address] [facility] [address] [place] [address] Referring Physician Family Medicine 12/25/22 documented as of this encounter
--- OUTSIDE RECORDS SUMMARY | 2024-03-11 09:20 | XMS_ITS | Encounter Summary ---
Author Organization [employer] Address [address] [facility] [address] Care Team Providers Care Bioassayist Name Role Phone Juan José Kendall MD Primary Care Provider + [phone] Juan José Kendall MD Unavailable [phone] Encounter Details Date Type Department Care Team (Late st Contact Info) Description 09/09/2018 Transcribed Document [facility] [place] Family Medicine [facility] [place] [address] Laurie Garcia MD [address] [place] [address] Social History Tobacco Use Types Packs/Day Years Used Date Smoking Tobacco: Never Assessed Comments Unknown Sex and Gender Information Value Date Recorded Sex Assigned at Not on file Legal Sex Female 2:23 PM CDT Gender Identity Not on file Sexual Orientation Not on file documented as of this encounter Miscellaneous Notes * Cerner Conversion Note - Laurie ProviderMD - 09/09/2018 1:56 PM CDT Care Management Assessment/Plan Entered On: 09/09/2018 14:03 EDT Performed On: 09/09/2018 13:56 EDT by Chuyita Briceno Clinical Assessment Liaison Care Management Note Care Management Note : Chuyita Briceno RN spoke with the patient [...] Physicians- Orthopedic- Dr. Shay Guerrero [facility]- [facility] Natalia The patient does wish to return home upon discharge but understands that rehab/SNF may be needed. All papers were explained and signed. No other issues. CM will continue to monitor. Documentation Status Complete : Yes Chuyita Briceno, Clinical Assessment Liaison - 09/09/2018 13:56 EDT Electronically signed by [facility] Conversion Gis Web Developer Cerner at 07/24/2022 3:32 PM CDT documented in this encounter Plan of Treatment Not on file documented as of this encounter Visit Diagnoses Not on filedocumented in this encounter Care Teams Bioassayist Relationship Specialty Start Date End Date Juan José Kendall MD [address] [facility] [address] [place] [address] PCP - General Family Medicine 12/25/22 Juan José Kendall MD [address] [facility] [address] [place] [address] Referring Physician Family Medicine 12/25/22 documented as of this encounter
--- OUTSIDE RECORDS SUMMARY | 2024-03-11 09:20 | XMS_ITS | Encounter Summary ---
Author Organization [employer] Address [address] [place] [address] Care Team Providers Care Beef Selector Name Role Phone Juan José Kendall MD Primary Care Provider + [phone] Juan José Kendall MD Unavailable [phone] Encounter Details Date Type Department Care Team (Late st Contact Info) Description 09/13/2018 Transcribed Document [facility] [place] [facility] [place] [address] ProviderLaurie MD [address] [place] [address] Social History Tobacco Use Types Packs/Day Years Used Date Smoking Tobacco: Never Assessed Comments Unknown Sex and Gender Information Value Date Recorded Sex Assigned at Not on file Legal Sex Female 2:23 PM CDT Gender Identity Not on file Sexual Orientation Not on file documented as of this encounter Miscellaneous Notes * Cerner Conversion Note - Historical ProviderMD - 09/13/2018 5:00 AM CDT Chart Check - Review Order Profile Entered On: 09/13/2018 6:34 EDT Performed On: 09/13/2018 5:00 EDT by Linh Honeycutt RN Chart Check Powerplans Initiated/Discontinued as Appropriate : Yes All Active Orders Reviewed : Yes Linh Honeycutt RN - 09/13/2018 6:33 EDT documented in this encounter Plan of Treatment Not on file documented as of this encounter Visit Diagnoses Not on filedocumented in this encounter Care Teams Beef Selector Relationship Specialty Start Date End Date Juan José Kendall MD [address] [place] [id number] PCP - General Family Medicine 12/25/22 Juan José Kendall MD [address] [place] [id number] Referring Physician Family Medicine 12/25/22 documented as of this encounter
--- OUTSIDE RECORDS SUMMARY | 2024-03-11 09:20 | XMS_ITS | Encounter Summary ---
Author Organization [email or web address] Address [address] [facility] [place] [address] Care Team Providers Care Fingernail Sculpturer Name Role Phone Juan José Kendall MD Primary Care Provider +- [phone] Juan José Kendall MD Unavailable [phone] Encounter Details Date Type Department Care Team (Late st Contact Info) Description 09/11/2018 Transcribed Document [facility] [place] [facility] [place] [address] ProviderLaurie MD [address] [place] [id number] Social History Tobacco Use Types Packs/Day Years Used Date Smoking Tobacco: Never Assessed Comments Unknown Sex and Gender Information Value Date Recorded Sex Assigned at Not on file Legal Sex Female 2:23 PM CDT Gender Identity Not on file Sexual Orientation Not on file documented as of this encounter Miscellaneous Notes * Cerner Conversion Note - Laurie ProviderMD - 09/11/2018 3:00 PM CDT Pain Assessment Entered On: 09/11/2018 15:48 EDT Performed On: 09/11/2018 16:19 EDT by ORLY RICHARDS RN Intervention Information: acetaminophen Performed by ORLY RICHARDS RN on 09/11/2018 15:19:00 EDT acetaminophen,500mg Oral Pain Assessment Pain Assessment : Follow-up assessment Pain Scale Goal : 3 Pain Scale Used : 0-10 Scale ORLY RICHARDS RN - 09/11/2018 15:47 EDT Pain Scale Intensity : 4 ORLY RICHARDS RN - 09/11/2018 15:47 EDT Image 4 - Images currently included in the form version of this document have not been included in the text rendition version of the form. documented in this encounter Plan of Treatment Not on file documented as of this encounter Visit Diagnoses Not on filedocumented in this encounter Care Teams Fingernail Sculpturer Relationship Specialty Start Date End Date Juan José Kendall MD [address] [facility] [address] [place] [id number] PCP - General Family Medicine 12/25/22 Juan José Kendall MD [address] [facility] [address] [place] [id number] Referring Physician Family Medicine 12/25/22 documented as of this encounter
--- OUTSIDE RECORDS SUMMARY | 2024-03-11 09:20 | XMS_ITS | Encounter Summary ---
Author Organization [email or web address] Address [address] [place] [address] Care Team Providers Care Jacket Preparer Name Role Phone Juan José Kendall MD Primary Care Provider + [phone] Juan José Kendall MD Unavailable [phone] Encounter Details Date Type Department Care Team (Late st Contact Info) Description 09/12/2018 Transcribed Document [facility] [place] [facility] [place] [address] ProviderLaurie MD [address] [place] [id number] Social History Tobacco Use Types Packs/Day Years Used Date Smoking Tobacco: Never Assessed Comments Unknown Sex and Gender Information Value Date Recorded Sex Assigned at Not on file Legal Sex Female 2:23 PM CDT Gender Identity Not on file Sexual Orientation Not on file documented as of this encounter Miscellaneous Notes * Cerner Conversion Note - Laurie Garcia MD - 09/12/2018 11:52 AM CDT Patient: TRUDI BLAIR Age: [...] control, no trouble w. urination. ???High spirit today ???Participating with PT/OT ???Nausea improving ???Diarrhea improving ???Hypernatremia stable Review of Systems Constitutional: No fever, No [...] mL 700 mg 14 mL, IV Piggyback, [id number] heparin 5,000 units/1 mL inj 5,000 Units 1 mL, SubCutaneous, Q8HInt metoclopramide 10 mg tab 10 mg 1 Tab, Oral, BID metoprolol tartrate 25 mg tab 25 mg 1 Tab, Oral, Daily ondansetron 4 mg/2 mL inj 4 mg 2 mL, IV Push, [id number] pantoprazole EC 40 mg tab 40 mg [...] Stress incontinence Physical Examination VS/Measurements Vital Measurements 09/12/2018 7:56 EDT Temperature Source Oral Temperature Mode Fahrenheit Temperature, Fahrenheit 98.1 Deg F Clinical Temperature, C 36.7 Deg C Heart Rate Monitored 66 bpm Respiratory Rate 18 Breaths/Min Systolic Blood Pressure 133 mmHg Diastolic Blood Pressure 54 mmHg LOW Oxygen Saturation 95 % General: Alert and oriented, No acute [...] Review / Management Results review: All Results 09/12/2018 5:02 EDT Sodium Level 147 mmol/L HI Potassium Level 3.5 mmol/L Chloride Level 114 mmol/L HI Carbon Dioxide Level 28 mmol/L Anion Gap 8 LOW Glucose Level 80 mg/dL Blood Urea Nitrogen 29 mg/dL HI Creatinine Level 1.50 mg/dL HI eGFR 42 mL/min/1.73m2 LOW eGFR NonAfrican 35 mL/min/1.73m2 LOW Bun/Creatinine 19.3 Calcium Level 8.4 mg/dL Protein Total 4.8 Gram/dL LOW Albumin Level 2.6 Gram/dL LOW Globulin 2.2 Gram/dL A/G Ratio 1.2 Bilirubin Total 0.5 mg/dL Alk Phos 95 Units/Liter AST 14 Units/Liter ALT 7 Units/Liter LOW CRP 3.6 mg/dL HI WBC 7.2 K/uL RBC 2.80 Million/uL LOW Hgb 8.2 g/dL LOW Hct 26.4 % LOW MCV 94.3 fL MCH 29.3 pg MCHC 31.1 Gram/dL LOW Platelet Count 279 K/uL MPV 10.5 fL RDW 18.8 % HI Neut % 63.2 % Neut # 4.52 K/uL Lymph % 20.5 % Lymph # 1.47 x10(3)/uL [place] % 9.9 % HI [place] # 0.71 K/uL Eos % 4.6 % Eos # 0.33 x10(3)/uL Baso % 0.8 % Baso # 0.06 x10(3)/uL Sed Rate Auto 3 mm/Hr Slide Review No IG# 0.07 x10(3)/uL HI IG% 1.00 % HI Prealbumin 10.2 mg/dL LOW 09/11/2018 4:12 EDT Sodium Level 147 mmol/L HI Potassium Level 3.3 mmol/L LOW Chloride Level 112 mmol/L Carbon Dioxide Level 29 mmol/L Anion Gap 9 Glucose Level 79 mg/dL Blood Urea Nitrogen 30 mg/dL HI Creatinine Level 1.50 mg/dL HI eGFR 42 mL/min/1.73m2 LOW eGFR NonAfrican 35 mL/min/1.73m2 LOW Bun/Creatinine 20.0 Calcium Level 8.5 mg/dL . Impression and Plan Diagnosis Left prosthetic [...] IV antibiotics as recommended by infectious disease -Nutritional support with protein shake and ensure -DVT prophylaxis -Close monitoring fluid and electrolytes -When necessary nebs -Fall risk precautions -Sleep apnea precautions. documented in this encounter Plan of Treatment Not on file documented as of this encounter Visit Diagnoses Not on filedocumented in this encounter Care Teams Jacket Preparer Relationship Specialty Start Date End Date Juan José Kendall MD [address] [facility] [address] [place] [id number] PCP - General Family Medicine 12/25/22 Juan José Kendall MD [address] [address] [place] [phone] Referring Physician Family Medicine 12/25/22 documented as of this encounter
--- OUTSIDE RECORDS SUMMARY | 2024-03-11 09:20 | XMS_ITS | Encounter Summary ---
Author Organization [employer] Address [address] [place] [address] Care Team Providers Care Mining Captain Name Role Phone Juan José Kendall MD Primary Care Provider + [phone] Juan José Kendall MD Unavailable [phone] Encounter Details Date Type Department Care Team (Late st Contact Info) Description 09/13/2018 Transcribed Document [facility] [place] [address] ProviderLaurie MD [address] [place] [address] Social History Tobacco Use Types Packs/Day Years Used Date Smoking Tobacco: Never Assessed Comments Unknown Sex and Gender Information Value Date Recorded Sex Assigned at Not on file Legal Sex Female 2:23 PM CDT Gender Identity Not on file Sexual Orientation Not on file documented as of this encounter Miscellaneous Notes * Cerner Conversion Note - Historical ProviderMD - 09/13/2018 3:18 PM CDT Interdisciplinary Rounds Entered On: 09/13/2018 15:18 EDT Performed On: 09/13/2018 15:18 EDT by MAMTA CHARLES, RN Interdisciplinary Rounds Interdisciplinary Rounds Participants : network contract manager Patient's Priority Needs : IV ABX Physical therapy Occupational therapy Wound care Notes to Care Team : Awaiting current drg MAMTA CHARLES, LISBETH - 09/13/2018 15:18 EDT Electronically signed by Adia Fink Conversion Farm Equipment Service Technician Cerner at 07/24/2022 3:49 PM CDT documented in this encounter Plan of Treatment Not on file documented as of this encounter Visit Diagnoses Not on filedocumented in this encounter Care Teams Mining Captain Relationship Specialty Start Date End Date Juan José Kendall MD [address] [place] [phone] PCP - General Family Medicine 12/25/22 Juan José Kendall MD [address] [place] [phone] Referring Physician Family Medicine 12/25/22 documented as of this encounter
--- OUTSIDE RECORDS SUMMARY | 2024-03-11 09:20 | XMS_ITS | Encounter Summary ---
Author Organization [employer] Address [address] [facility] [place] [address] Care Team Providers Care Presser Hand Name Role Phone Juan José Kendall MD Primary Care Provider +- [phone] Juan José Kendall MD Unavailable [phone] Encounter Details Date Type Department Care Team (Late st Contact Info) Description 09/09/2018 Transcribed Document [facility] [place] [facility] [place] [address] ProviderLaurie MD [address] [place] [id number] Social History Tobacco Use Types Packs/Day Years Used Date Smoking Tobacco: Never Assessed Comments Unknown Sex and Gender Information Value Date Recorded Sex Assigned at Not on file Legal Sex Female 2:23 PM CDT Gender Identity Not on file Sexual Orientation Not on file documented as of this encounter Miscellaneous Notes * Cerner Conversion Note - Laurie ProviderMD - 09/09/2018 9:00 AM CDT Pain Assessment Entered On: 09/09/2018 12:01 EDT Performed On: 09/09/2018 10:34 EDT by FRANTZ BROWN, RN Intervention Information: acetaminophen Performed by FRANTZ BROWN, RN on 09/09/2018 09:34:00 EDT acetaminophen,500mg Oral Pain Assessment Pain Assessment : Follow-up assessment Pain Scale Used : 0-10 Scale FRANTZ BROWN RN - 09/09/2018 12:01 EDT Pain Scale Intensity : 3 FRANTZ BROWN RN - 09/09/2018 12:01 EDT Image 4 - Images currently included in the form version of this document have not been included in the text rendition version of the form. documented in this encounter Plan of Treatment Not on file documented as of this encounter Visit Diagnoses Not on filedocumented in this encounter Care Teams Presser Hand Relationship Specialty Start Date End Date Juan José Kendall MD [address] [facility] [address] [place] [id number] PCP - General Family Medicine 12/25/22 Juan José Kendall MD [address] [facility] [address] [place] [phone] Referring Physician Family Medicine 12/25/22 documented as of this encounter
--- OUTSIDE RECORDS SUMMARY | 2024-03-11 09:20 | XMS_ITS | Encounter Summary ---
Author Organization [employer] Address [address] [place] [address] Care Team Providers Care Engineer Specialist Name Role Phone Juan José Kendall MD Primary Care Provider + [phone] Juan José Kendall MD Unavailable [phone] Encounter Details Date Type Department Care Team (Late st Contact Info) Description 09/09/2018 Transcribed Document [facility] Family Medicine [facility] [place] [address] ProviderLaurie MD [address] [place] [id number] Social History Tobacco Use Types Packs/Day Years Used Date Smoking Tobacco: Never Assessed Comments Unknown Sex and Gender Information Value Date Recorded Sex Assigned at Not on file Legal Sex Female 2:23 PM CDT Gender Identity Not on file Sexual Orientation Not on file documented as of this encounter Miscellaneous Notes * Cerner Conversion Note - Laurie Garcia MD - 09/09/2018 6:28 PM CDT Patient: TRUDI BLAIR Age: 63 years Sex: Female : 1955 Associated Diagnoses: 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 Guerrero on 06/27/2018. Patient was admitted to [facility] from outside hospital with left prosthetic knee infection . Patient was admitted to local hospital for altered mental status hospital secondary to MRSA bacteremia, hypotension, anemia, bacteriuria and pyuria. Dr. Guerrero, from [facility], the patient to the OR and underwent prosthesis explantation and spacer was on antibiotic placement. Patient started on IV antibiotics as recommended by infectious disease and currently patient was on daptomycin. Because the patient is morbidly obese and she needs long-term IV antibiotics and in the meantime we wear unable to have peripheral IV access patient has a Port-A-Cath placement by interventional radiology. Patient has multiple comorbidities and needs a close monitoring with physicians and excellent nursing care so she was transferred to LTAC to continue her care Review of Systems Constitutional: No fever, No chills. Eye: No visual disturbances. Ear/Nose/Mouth/Throat: No nasal congestion, No sore throat. Respiratory: No shortness of breath, No cough. Cardiovascular: No chest pain, No tachycardia. Gastrointestinal: No nausea, No vomiting, No abdominal pain. Genitourinary: No change in urine stream. Hematology/Lymphatics: No bleeding tendency. Endocrine: No polyuria, No cold intolerance, No heat intolerance. Immunologic: Negative. Musculoskeletal: Negative. Integumentary: wound stable covered w. clean dressing. Neurologic: No confusion, No numbness, No tingling, No headache. Psychiatric: No anxiety, No depression. All other systems are negative Health Status Allergies: Allergies (1) Active Reaction Biaxin Acid reflux Current medications: Home Medications (7) Active metoclopramide 10 mg oral tablet 10 mg = 1 Tab, Oral, BID Metoprolol Tartrate 50 mg oral tablet 50 mg = 1 Tab, Oral, Daily omeprazole 20 mg oral delayed release capsule 20 mg = 1 Cap, Oral, Daily potassium chloride 20 mEq oral tablet, extended release 20 mEq = 1 Tab, Oral, BID simvastatin 40 mg oral tablet 40 mg = 1 Tab, Oral, At Bedtime topiramate 25 mg oral capsule 25 mg = 1 Cap, Oral, BID Tums 500 mg oral tablet, chewable 500 mg = 1 Tab, PRN, Chew, BID , Medications (35) Active Scheduled: (15) acetaminophen 500 mg tab 500 mg 1 Tab, Oral, Q6HInt ammonium lact 12% lot 225 g 1 Application, Topical, BID atorvastatin 20 mg tab 20 mg 1 Tab, Oral, At Bedtime collagenase 250 unit/1 g oint 2 g 1 Application, Topical, Daily DAPTOmycin + NaCl 0.9% 50 mL 700 mg 14 mL, IV Piggyback, [id number] docusate sodium 100 mg cap 100 mg 1 Cap, Oral, BID heparin 5,000 units/1 mL inj 5,000 Units 1 mL, SubCutaneous, Q8HInt metoclopramide 10 mg tab 10 mg 1 Tab, Oral, BID metoprolol tartrate 25 mg tab 25 mg 1 Tab, Oral, Daily ondansetron 4 mg/2 mL inj 4 mg 2 mL, IV Push, [id number] pantoprazole EC 40 mg tab 40 mg 1 Tab, Oral, Daily potassium chloride CR 20 mEq tab 20 mEq 1 Tab, Oral, BID saccharomyces boulardii 250 mg cap 250 mg 1 Cap, Oral, Daily scopolamine 1.5 mg/72 hr patch 1 Patch, TransDermal, Q3Days topiramate 25 mg sprinkle cap 25 mg 1 Cap, Oral, BID Continuous: (0) PRN: (20) acetaminophen 325 mg tab 650 mg 2 [...] tab 0.1 mg 1 Tab, Oral, Q4H magnesium hydroxide 8% liq [...] obstructive sleep apnea HTN (hypertension) Stress incontinence Histories Procedure history: Left patellar tendon reconstruction in the month of 06/2018 at 62 Years. left patellar tendon repair. in the month of 03/2018 at 62 Years. Left total knee replacement in the month of 02/2018 at 62 Years. HYSTERECTOMY. LUMBAR FUSION. SAURABH PLANTAR FASCITIS SX. R TKR. right knee patellar tendon repair. colonoscopy. Physical Examination VS/Measurements Vital Signs/Vital Measures 09/09/2018 15:47 EDT Temperature Source Oral Temperature Mode Fahrenheit Temperature, Fahrenheit 98.3 Deg F Clinical Temperature, C 36.8 Deg C Heart Rate Monitored 58 bpm LOW Respiratory Rate 20 Breaths/Min Systolic Blood Pressure 143 mmHg HI Diastolic Blood Pressure 65 mmHg Oxygen Saturation 95 % 09/09/2018 15:00 EDT Temperature Source Oral Temperature Mode Fahrenheit 09/09/2018 9:34 EDT Heart Rate, Apical 57 bpm LOW 09/09/2018 8:21 EDT Oxygen Therapy Mode Room air 09/09/2018 7:40 EDT Temperature Source Oral Temperature Mode Fahrenheit Temperature, Fahrenheit 98.2 Deg F Clinical Temperature, C 36.8 Deg C Heart Rate Monitored 57 bpm LOW Respiratory Rate 18 Breaths/Min Systolic Blood Pressure 140 mmHg Diastolic Blood Pressure 61 mmHg Oxygen Saturation 96 % 09/08/2018 23:00 EDT Temperature Source Oral Temperature Mode Fahrenheit Temperature, Fahrenheit 97.9 Deg F Clinical Temperature, C 36.6 Deg C Heart Rate Monitored 61 bpm Respiratory Rate 17 Breaths/Min Systolic Blood Pressure 152 mmHg HI Diastolic Blood Pressure 61 mmHg Oxygen Saturation 98 % 09/08/2018 21:00 EDT Oxygen Therapy Mode Room air 09/08/2018 19:00 EDT Temperature Source Oral Temperature Mode Fahrenheit Temperature, Fahrenheit 97.9 Deg F Clinical Temperature, C 36.6 Deg C Heart Rate Monitored 60 bpm Respiratory Rate 18 Breaths/Min Systolic Blood Pressure 147 mmHg HI Diastolic Blood Pressure 70 mmHg Oxygen Saturation 100 % 09/08/2018 18:39 EDT Temperature Source Oral Temperature Mode Fahrenheit 09/08/2018 18:00 EDT Temperature, Fahrenheit 98.1 Deg F Clinical Temperature, C 36.7 Deg C Heart Rate Monitored 67 bpm Respiratory Rate 20 Breaths/Min Systolic Blood Pressure 148 mmHg HI Diastolic Blood Pressure 66 mmHg Oxygen Saturation 97 % Oxygen Therapy Mode Room air Oxygen Therapy Mode Room air 09/08/2018 16:00 EDT Temperature Source Oral Temperature Mode Fahrenheit Temperature, Fahrenheit 98.2 Deg F Clinical Temperature, C 36.8 Deg C Heart Rate Monitored 67 bpm Respiratory Rate 16 Breaths/Min Systolic Blood Pressure 137 mmHg Diastolic Blood Pressure 61 mmHg Mean Arterial Pressure (MAP)-BMDI 79 Oxygen Saturation 95 % Oxygen Therapy Mode Room air 09/08/2018 9:44 EDT Temperature Source Oral Temperature Mode Fahrenheit Temperature, Fahrenheit 97.8 Deg F Clinical Temperature, C 36.6 Deg C Heart Rate Monitored 69 bpm Respiratory Rate 16 Breaths/Min Systolic Blood Pressure 135 mmHg Diastolic Blood Pressure 63 mmHg Mean Arterial Pressure (MAP)-BMDI 80 Oxygen Saturation 94 % Oxygen Therapy Mode Room air 09/08/2018 9:15 EDT Heart Rate, Apical 70 bpm Systolic Blood Pressure 136 mmHg Diastolic Blood Pressure 73 mmHg 09/08/2018 6:00 EDT Temperature Source Oral Temperature Mode Fahrenheit Temperature, Fahrenheit 98.0 Deg F Clinical Temperature, C 36.7 Deg C Heart Rate Monitored 71 bpm Respiratory Rate 14 Breaths/Min Systolic Blood Pressure 142 mmHg HI Diastolic Blood Pressure 66 mmHg Mean Arterial Pressure (MAP)-BMDI 85 Oxygen Saturation 93 % LOW Oxygen Therapy Mode Room air 09/08/2018 2:47 EDT Temperature Source Oral Temperature Mode Fahrenheit Temperature, Fahrenheit 98.3 Deg F Clinical Temperature, C 36.8 Deg C Heart Rate Monitored 72 bpm Respiratory Rate 16 Breaths/Min Blood Pressure Location Arm, left upper Blood Pressure Source Non-Invasive BP Device Blood Pressure Position Supine Systolic Blood Pressure 134 mmHg Diastolic Blood Pressure 54 mmHg LOW Mean Arterial Pressure (MAP)-BMDI 73 Oxygen Saturation 92 % LOW Oxygen Therapy Mode Room air General: Alert [...] No lymphadenopathy neck, axilla, groin. Musculoskeletal: Normal range of motion, Normal strength, No tenderness, No swelling, No deformity, Normal gait. Integumentary: Warm, [place], Intact, No pallor, No rash, WOUND STABLE. Neurologic: Alert, Oriented, Normal sensory, Normal motor function, No focal deficits, Cranial Nerves II-XII are grossly intact, Normal deep tendon reflexes. Psychiatric: Cooperative, Appropriate mood & affect, Normal judgment, Non-suicidal. Review / Management Results review: Lab results 09/09/2018 4:51 EDT Sodium Level 146 mmol/L Potassium Level 3.1 mmol/L LOW Chloride Level 110 mmol/L Carbon Dioxide Level 29 mmol/L Anion Gap 10 Glucose Level 86 mg/dL Blood Urea Nitrogen 30 mg/dL HI CREATININE 1.60 mg/dL HI eGFR 39 mL/min/1.73m2 LOW eGFR NonAfrican 32 mL/min/1.73m2 LOW Bun/Creatinine 17.6 Calcium Level 9.1 mg/dL Protein Total 5.4 Gram/dL LOW Albumin Level 3.3 Gram/dL LOW Globulin 2.1 Gram/dL A/G Ratio 1.6 Bilirubin Total 0.8 mg/dL Alk Phos 77 Units/Liter AST 11 Units/Liter ALT 8 Units/Liter LOW WBC 7.1 K/uL RBC 2.76 Million/uL LOW Hgb 8.1 g/dL LOW Hct 25.3 % LOW MCV 91.7 fL MCH 29.3 pg MCHC 32.0 Gram/dL LOW Platelet Count 321 K/uL MPV 10.5 fL RDW 17.6 % HI Neut % 67.4 % Neut # 4.78 K/uL Lymph % 14.1 % LOW Lymph # 1.00 x10(3)/uL Traverse % 9.6 % HI Traverse # 0.68 K/uL Eos % 6.5 % Eos # 0.46 x10(3)/uL Baso % 0.8 % Baso # 0.06 x10(3)/uL Slide Review No IG# 0.11 x10(3)/uL HI IG% 1.60 % HI 09/08/2018 4:37 EDT Sodium Level 148 mmol/L HI Potassium Level 3.6 mmol/L Chloride Level 112 mmol/L Carbon Dioxide Level 28 mmol/L Anion Gap 12 Glucose Level 84 mg/dL Blood Urea Nitrogen 26 mg/dL HI CREATININE 1.71 mg/dL HI eGFR 36 mL/min/1.73m2 LOW eGFR NonAfrican 30 mL/min/1.73m2 LOW Bun/Creatinine 15.2 Calcium Level 8.1 mg/dL LOW Albumin Level 2.8 Gram/dL LOW Magnesium Level 1.8 mg/dL Phosphorus 3.3 mg/dL WBC 7.0 K/uL RBC 2.65 Million/uL LOW Hgb 7.6 Gram/dL LOW Hct 25.1 % LOW MCV 94.7 fL MCH 28.7 pg MCHC 30.3 Gram/dL LOW Platelet Count 287 K/uL MPV 10.1 fL RDW 17.2 % HI Neut % 64.8 % Neut # 4.57 K/uL Lymph % 16.6 % LOW Lymph # 1.17 K/uL LOW Traverse % 8.9 % Traverse # 0.63 K/uL Eos % 6.8 % Eos # 0.48 K/uL Baso % 0.9 % Baso # 0.06 K/uL Slide Review No IG# 0 x10(3)/uL IG% 2 % HI . 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 Acute kidney injury - Admitting, Medical. Hypertension - Admitting, Medical. Hypercholesterolemia with endogenous hyperglyceridemia - Admitting, Medical. GERD (gastroesophageal reflux disease) - Discharge, Medical. Obstructive sleep apnea - Admitting, Medical. Morbid obesity with BMI of 45.0-49.9, adult - Admitting, Medical. MRSA and Enterobacter Bacteremia - Discharge, Medical. Anemia - Admitting, Medical. Left posterior vein thrombosis - Admitting, Medical. Course: Plan/ 1-continue on IV antibiotics as recommended by infectious disease 2-pain control 3-PT prophylaxis 4-repeat venous Doppler to see extent of blood clots 5-hydration 6-close monitoring fluid and electrolytes 7-scheduled and when necessary nebs 8-PT/OT 8-sleep apnea precautions 9-for risk precautions 10-symptomatic treatment 11-ID consult. Electronically signed by Aleks, [facility] Conversion Large Engine Assembler Cerner at 07/24/2022 3:34 PM CDT documented in this encounter Plan of Treatment Not on file documented as of this encounter Visit Diagnoses Not on filedocumented in this encounter Care Teams Engineer Specialist Relationship Specialty Start Date End Date Juan José Kendall MD [address] [employer] [address] [place] [id number] PCP - General Family Medicine 12/25/22 Juan José Kendall MD [address] [employer] [address] [place] [id number] Referring Physician Family Medicine 12/25/22 documented as of this encounter
--- OUTSIDE RECORDS SUMMARY | 2024-03-11 09:20 | XMS_ITS | Encounter Summary ---
Author Organization [employer] Address [address] [place] [address] Care Team Providers Care Scale Agent Name Role Phone Juan José Kendall MD Primary Care Provider + [phone] Juan José Kendall MD Unavailable [phone] Encounter Details Date Type Department Care Team (Late st Contact Info) Description 09/09/2018 Transcribed Document [facility] [place] [facility] [place] [address] ProviderLaurie MD [address] [place] [id number] Social History Tobacco Use Types Packs/Day Years Used Date Smoking Tobacco: Never Assessed Comments Unknown Sex and Gender Information Value Date Recorded Sex Assigned at Not on file Legal Sex Female 2:23 PM CDT Gender Identity Not on file Sexual Orientation Not on file documented as of this encounter Miscellaneous Notes * Cerner Conversion Note - Historical ProviderMD - 09/09/2018 8:30 AM CDT Clinical Dietitian Note Entered On: 09/09/2018 8:31 EDT Performed On: 09/09/2018 8:30 EDT by Nery Mckee Boat Pilot Clinical Dietitian Note Clinical Dietitian Note : 09/09: RD rec'd consult for BMI>40. 63 yo female newly admitted to LTAC. Pt seen yesterday by RD-will reorder supplements and follow up as scheduled. Nery Mckee Boat Pilot - 09/09/2018 8:30 EDT Electronically signed by Adia Fink Conversion Electronic Pagination System Operator Cerner at 07/24/2022 3:39 PM CDT documented in this encounter Plan of Treatment Not on file documented as of this encounter Visit Diagnoses Not on filedocumented in this encounter Care Teams Scale Agent Relationship Specialty Start Date End Date [...]
--- OUTSIDE RECORDS SUMMARY | 2024-03-11 09:20 | XMS_ITS | Encounter Summary ---
Author Organization [employer] Address [address] [place] [address] Care Team Providers Care Communications Scientist Name Role Phone Juan José Kendall MD Primary Care Provider + [phone] Juan José Kendall MD Unavailable [phone] Encounter Details Date Type Department Care Team (Late st Contact Info) Description 09/09/2018 Transcribed Document [facility] Family [place] [facility] [place] [address] ProviderLaurie MD [address] [place] [address] Social History Tobacco Use Types Packs/Day Years Used Date Smoking Tobacco: Never Assessed Comments Unknown Sex and Gender Information Value Date Recorded Sex Assigned at Not on file Legal Sex Female 2:23 PM CDT Gender Identity Not on file Sexual Orientation Not on file documented as of this encounter Miscellaneous Notes * Cerner Conversion Note - Historical ProviderMD - 09/09/2018 2:21 PM CDT Ke Drug Regimen Review, [facility] Entered On: 09/09/2018 14:24 EDT Performed On: 09/09/2018 14:21 EDT by BETHANY MO RPh Drug Regimen Review Drug Regimen Review for Clinical Issues : Yes-Issues found during review Physicain Contacted Orders Completed : Yes Drug Regimen Review Notes : Home medication list obtained by [facility] pharmac[facility] during present admission. Home medications documented and reconciled. Metoprolol reduced to 25 qday, omeprazole converted to pantoprazole, simvastatin converted to atorvastatin. Other home medications resumed. Hospital transfer medications reviewed and reconciled. All resumed appropriately, except probiotic omitted. Resume probiotic. No other issues noted. Bethany Mo, PharmBETHANY PANDA, [facility] - 09/09/2018 14:21 EDT Electronically signed by Aleks, [facility] Conversion Certified Lactation Counselor Cerner at 07/24/2022 3:53 PM CDT documented in this encounter Plan of Treatment Not on file documented as of this encounter Visit Diagnoses Not on filedocumented in this encounter Care Teams Communications Scientist Relationship Specialty Start Date End Date Juan José Kendall MD [address] [place] [address] [address] [place] [id number] PCP - General Family Medicine 12/25/22 Juan José Kendall MD [address] [place] [address] [address] [place] [id number] Referring Physician Family Medicine 12/25/22 documented as of this encounter
--- OUTSIDE RECORDS SUMMARY | 2024-03-11 09:20 | XMS_ITS | Encounter Summary ---
Author Organization [employer] Address [address] [place] [address] Care Team Providers Care Minister Of Religion Name Role Phone Juan José Kendall MD Primary Care Provider + [phone] Juan José Kendall MD Unavailable [phone] Encounter Details Date Type Department Care Team (Late st Contact Info) Description 09/09/2018 Transcribed Document [facility] [facility] [place] [address] ProviderLaurie MD [address] [place] [address] Social History Tobacco Use Types Packs/Day Years Used Date Smoking Tobacco: Never Assessed Comments Unknown Sex and Gender Information Value Date Recorded Sex Assigned at Not on file Legal Sex Female 2:23 PM CDT Gender Identity Not on file Sexual Orientation Not on file documented as of this encounter Miscellaneous Notes * Cerner Conversion Note - Laurie ProviderMD - 09/09/2018 5:00 AM CDT Chart Check - Review Order Profile Entered On: 09/09/2018 4:52 EDT Performed On: 09/09/2018 5:00 EDT by Linh Honeycutt RN Chart Check Powerplans Initiated/Discontinued as Appropriate : Yes All Active Orders Reviewed : Yes Linh Honeycutt RN - 09/09/2018 4:51 EDT documented in this encounter Plan of Treatment Not on file documented as of this encounter Visit Diagnoses Not on filedocumented in this encounter Care Teams Minister Of Religion Relationship Specialty Start Date End Date Juan José Kendall MD [address] [place] [id number] PCP - General Family Medicine 12/25/22 Juan José Kendall MD [address] [place] [phone] Referring Physician Family Medicine 12/25/22 documented as of this encounter
--- OUTSIDE RECORDS SUMMARY | 2024-03-11 09:20 | XMS_ITS | Encounter Summary ---
Author Organization [employer] Address [address] [place] [address] Care Team Providers Care Hay Stacker Operator Name Role Phone Juan José Kendall MD Primary Care Provider +- [phone] Juan José Kendall MD Unavailable [phone] Encounter Details Date Type Department Care Team (Late st Contact Info) Description 09/10/2018 Transcribed Document [facility] [place] [facility] [place] [address] ProviderLaurie MD [address] [place] [address] Social History Tobacco Use Types Packs/Day Years Used Date Smoking Tobacco: Never Assessed Comments Unknown Sex and Gender Information Value Date Recorded Sex Assigned at Not on file Legal Sex Female 2:23 PM CDT Gender Identity Not on file Sexual Orientation Not on file documented as of this encounter Miscellaneous Notes * Cerner Conversion Note - Historical ProviderMD - 09/10/2018 3:00 AM CDT Pain Assessment Entered On: 09/10/2018 4:46 EDT Performed On: 09/10/2018 3:24 EDT by KOKO BAILEY RN Intervention Information: acetaminophen Performed by KOKO BAILEY RN on 09/10/2018 02:24:00 EDT acetaminophen,500mg Oral Pain Assessment Pain Assessment : Follow-up assessment Pain Scale Used : 0-10 Scale KOKO BAILEY RN - 09/10/2018 4:46 EDT Pain Scale Intensity : 0 KOKO BAILEY RN - 09/10/2018 4:46 EDT Image 4 - Images currently included in the form version of this document have not been included in the text rendition version of the form. documented in this encounter Plan of Treatment Not on file documented as of this encounter Visit Diagnoses Not on filedocumented in this encounter Care Teams Hay Stacker Operator Relationship Specialty Start Date End Date Juan José Kendall MD [address] [facility] [address] [place] [id number] PCP - General Family Medicine 12/25/22 Juan José Kendall MD [address] [facility] [address] [place] [phone] Referring Physician Family Medicine 12/25/22 documented as of this encounter
--- OUTSIDE RECORDS SUMMARY | 2024-03-11 09:20 | XMS_ITS | Encounter Summary ---
Author Organization [employer] Address [address] [place] [address] Care Team Providers Care Rn Progressive Care Unit Name Role Phone Juan José Kendall MD Primary Care Provider + [phone] Juan José Kendall MD Unavailable [phone] Encounter Details Date Type Department Care Team (Late st Contact Info) Description 09/12/2018 Transcribed Document [facility] [place] Family Medicine [address] [place] [address] ProviderLaurie MD [address] [place] [address] Social History Tobacco Use Types Packs/Day Years Used Date Smoking Tobacco: Never Assessed Comments Unknown Sex and Gender Information Value Date Recorded Sex Assigned at Not on file Legal Sex Female 2:23 PM CDT Gender Identity Not on file Sexual Orientation Not on file documented as of this encounter Miscellaneous Notes * Cerner Conversion Note - Laurie ProviderMD - 09/12/2018 5:00 AM CDT Chart Check - Review Order Profile Entered On: 09/12/2018 6:46 EDT Performed On: 09/12/2018 5:00 EDT by Linh Honeycutt RN Chart Check Powerplans Initiated/Discontinued as Appropriate : Yes All Active Orders Reviewed : Yes Linh Honeycutt RN - 09/12/2018 6:46 EDT documented in this encounter Plan of Treatment Not on file documented as of this encounter Visit Diagnoses Not on filedocumented in this encounter Care Teams Rn Progressive Care Unit Relationship Specialty Start Date End Date Juan José Kendall MD [address] [place] [id number] PCP - General Family Medicine 12/25/22 Juan José Kendall MD [address] [place] [phone] Referring Physician Family Medicine 12/25/22 documented as of this encounter
--- OUTSIDE RECORDS SUMMARY | 2024-03-11 09:20 | XMS_ITS | Encounter Summary ---
Author Organization [employer] [facility] [employer] Address [address] [place] [address] Care Team Providers Care High School English Teacher Name Role Phone Juan José Kendall MD Primary Care Provider + [phone] Juan José Kendall MD Unavailable +[phone] Encounter Details Date Type Department Care Team (Late st Contact Info) Description 09/10/2018 Transcribed Document [facility] [place] [facility] [place] [address] ProviderLaurie MD [address] [place] [address] Social History Tobacco Use Types Packs/Day Years Used Date Smoking Tobacco: Never Assessed Comments Unknown Sex and Gender Information Value Date Recorded Sex Assigned at Not on file Legal Sex Female 2:23 PM CDT Gender Identity Not on file Sexual Orientation Not on file documented as of this encounter Miscellaneous Notes * Cerner Conversion Note - Historical ProviderMD - 09/10/2018 6:00 PM CDT Patch Check Entered On: 09/10/2018 16:05 EDT Performed On: 09/10/2018 18:00 EDT by ORLY RICHARDS, RN Patch Check Patch Check Result : Yes Patch Check - Type of Patch : scopolamine (Transderm-Scop) ORLY RICHARDS, RN - 09/10/2018 16:05 EDT Electronically signed by Aleks [facility] Conversion Intelligent Systems Engineer Cerner at 07/24/2022 3:32 PM CDT documented in this encounter Plan of Treatment Not on file documented as of this encounter Visit Diagnoses Not on filedocumented in this encounter Care Teams High School English Teacher Relationship Specialty Start Date End Date Juan José Kendall MD [address] [place] [address] PCP - General Family Medicine 12/25/22 Juan José Kendall MD [address] [place] [id number] Referring Physician Family Medicine 12/25/22 documented as of this encounter
--- OUTSIDE RECORDS SUMMARY | 2024-03-11 09:20 | XMS_ITS | Encounter Summary ---
Author Organization [employer] Address [address] [place] [address] Care Team Providers Care Cotton Converter Name Role Phone Juan José Kendall MD Primary Care Provider +- [phone] Juan José Kendall MD Unavailable +[phone] Encounter Details Date Type Department Care Team (Late st Contact Info) Description 09/10/2018 Transcribed Document [facility] [place] [facility] [place] [address] ProviderLaurie MD [address] [place] [id number] Social History Tobacco Use Types Packs/Day Years Used Date Smoking Tobacco: Never Assessed Comments Unknown Sex and Gender Information Value Date Recorded Sex Assigned at Not on file Legal Sex Female 2:23 PM CDT Gender Identity Not on file Sexual Orientation Not on file documented as of this encounter Miscellaneous Notes * Cerner Conversion Note - Laurie ProviderMD - 09/10/2018 9:00 AM CDT Pain Assessment Entered On: 09/10/2018 16:03 EDT Performed On: 09/10/2018 11:25 EDT by ORLY RICHARDS, RN Intervention Information: acetaminophen Performed by ORLY RICHARDS, RN on 09/10/2018 10:25:00 EDT acetaminophen,500mg Oral Pain Assessment Pain Assessment : Follow-up assessment Pain Scale Used : 0-10 Scale ORLY RICHARDS RN - 09/10/2018 16:03 EDT Pain Scale Intensity : 3 ORLY RICHARDS RN - 09/10/2018 16:03 EDT Image 4 - Images currently included in the form version of this document have not been included in the text rendition version of the form. documented in this encounter Plan of Treatment Not on file documented as of this encounter Visit Diagnoses Not on filedocumented in this encounter Care Teams Cotton Converter Relationship Specialty Start Date End Date Juan José Kendall MD [address] [facility] [address] [place] [id number] PCP - General Family Medicine 12/25/22 Juan José Kendall MD [address] [facility] [address] [place] [id number] Referring Physician Family Medicine 12/25/22 documented as of this encounter
--- OUTSIDE RECORDS SUMMARY | 2024-03-11 09:20 | XMS_ITS | Encounter Summary ---
Author Organization [employer] Address [address] [place] [address] Care Team Providers Care Metal Sorter Name Role Phone Juan José Kendall MD Primary Care Provider + [phone] Juan José Kendall MD Unavailable [phone] Encounter Details Date Type Department Care Team (Late st Contact Info) Description 09/11/2018 Transcribed Document [facility] [place] [facility] [place] [address] ProviderLaurie MD [address] [place] [address] Social History Tobacco Use Types Packs/Day Years Used Date Smoking Tobacco: Never Assessed Comments Unknown Sex and Gender Information Value Date Recorded Sex Assigned at Not on file Legal Sex Female 2:23 PM CDT Gender Identity Not on file Sexual Orientation Not on file documented as of this encounter Miscellaneous Notes * Cerner Conversion Note - Historical ProviderMD - 09/11/2018 6:00 PM CDT Patch Check Entered On: 09/11/2018 19:13 EDT Performed On: 09/11/2018 18:00 EDT by ORLY RICHARDS, RN Patch Check Patch Check Result : Yes Patch Check - Type of Patch : scopolamine (Transderm-Scop) ORLY RICHARDS, RN - 09/11/2018 19:12 EDT Electronically signed by Aleks [facility] Conversion Control Panel Tester Cerner at 07/24/2022 3:35 PM CDT documented in this encounter Plan of Treatment Not on file documented as of this encounter Visit Diagnoses Not on filedocumented in this encounter Care Teams Metal Sorter Relationship Specialty Start Date End Date Juan José Kendall MD [address] [place] [address] PCP - General Family Medicine 12/25/22 Juan José Kendall MD [address] [place] [id number] Referring Physician Family Medicine 12/25/22 documented as of this encounter
--- OUTSIDE RECORDS SUMMARY | 2024-03-11 09:20 | XMS_ITS | Encounter Summary ---
Author Organization [employer] Address [address] [place] [address] Care Team Providers Care Campus Aide Name Role Phone Juan José Kendall MD Primary Care Provider +- [phone] Juan José Kendall MD Unavailable [phone] Encounter Details Date Type Department Care Team (Late st Contact Info) Description 09/11/2018 Transcribed Document [facility] [place] [facility] [place] [address] ProviderLaurie MD [address] [place] [address] Social History Tobacco Use Types Packs/Day Years Used Date Smoking Tobacco: Never Assessed Comments Unknown Sex and Gender Information Value Date Recorded Sex Assigned at Not on file Legal Sex Female 2:23 PM CDT Gender Identity Not on file Sexual Orientation Not on file documented as of this encounter Miscellaneous Notes * Cerner Conversion Note - Laurie ProviderMD - 09/11/2018 9:00 PM CDT Pain Assessment Entered On: 09/12/2018 1:04 EDT Performed On: 09/11/2018 21:23 EDT by Linh Honeycutt RN Intervention Information: acetaminophen Performed by Linh Honeycutt RN on 09/11/2018 20:23:00 EDT acetaminophen,500mg Oral Pain Assessment Pain Assessment : Follow-up assessment Pain Scale Goal : 3 Pain Improved by Intervention : Yes Linh Honeycutt RN - 09/12/2018 1:04 EDT Electronically signed by Adia Fink Conversion Warning Coordination Meteorologist Cerner at 07/24/2022 3:51 PM CDT documented in this encounter Plan of Treatment Not on file documented as of this encounter Visit Diagnoses Not on filedocumented in this encounter Care Teams Campus Aide Relationship Specialty Start Date End Date Juan José Kendall MD [address] [facility] [address] [place] [phone] PCP - General Family Medicine 12/25/22 Juan José Kendall MD [address] [facility] [address] [place] [phone] Referring Physician Family Medicine 12/25/22 documented as of this encounter
--- OUTSIDE RECORDS SUMMARY | 2024-03-11 09:20 | XMS_ITS | Encounter Summary ---
Author Organization [employer] Address [address] [facility] [place] [address] Care Team Providers Care Filbert Grower Name Role Phone Juan José Kendall MD Primary Care Provider +- [phone] Juan José Kendall MD Unavailable [phone] Encounter Details Date Type Department Care Team (Late st Contact Info) Description 09/09/2018 Transcribed Document [facility] [place] [address] ProviderLaurie MD [address] [place] [address] Social History Tobacco Use Types Packs/Day Years Used Date Smoking Tobacco: Never Assessed Comments Unknown Sex and Gender Information Value Date Recorded Sex Assigned at Not on file Legal Sex Female 2:23 PM CDT Gender Identity Not on file Sexual Orientation Not on file documented as of this encounter Miscellaneous Notes * Cerner Conversion Note - Laurie ProviderMD - 09/09/2018 3:00 AM CDT Pain Assessment Entered On: 09/09/2018 4:51 EDT Performed On: 09/09/2018 4:23 EDT by Linh Honeycutt RN Intervention Information: acetaminophen Performed by Linh Honeycutt RN on 09/09/2018 03:23:00 EDT acetaminophen,500mg Oral Pain Assessment Pain Assessment : Follow-up assessment Pain Improved by Intervention : Yes Linh Honeycutt RN - 09/09/2018 4:51 EDT documented in this encounter Plan of Treatment Not on file documented as of this encounter Visit Diagnoses Not on filedocumented in this encounter Care Teams Filbert Grower Relationship Specialty Start Date End Date Juan José Kendall MD [address] [facility] [address] [place] [phone] PCP - General Family Medicine 12/25/22 Juan José Kendall MD [facility] [address] [place] [phone] Referring Physician Family Medicine 12/25/22 documented as of this encounter
--- OUTSIDE RECORDS SUMMARY | 2024-03-11 09:20 | XMS_ITS | Encounter Summary ---
Author Organization [employer] Address [address] [place] [address] Care Team Providers Care Laminating Machine Feeder Name Role Phone Juan José Kendall MD Primary Care Provider + [phone] Juan José Kendall MD Unavailable +[phone] Encounter Details Date Type Department Care Team (Late st Contact Info) Description 09/10/2018 Transcribed Document [facility] [place] [address] ProviderLaurie MD [address] [place] [address] Social History Tobacco Use Types Packs/Day Years Used Date Smoking Tobacco: Never Assessed Comments Unknown Sex and Gender Information Value Date Recorded Sex Assigned at Not on file Legal Sex Female 2:23 PM CDT Gender Identity Not on file Sexual Orientation Not on file documented as of this encounter Miscellaneous Notes * Cerner Conversion Note - Historical ProviderMD - 09/10/2018 5:00 AM CDT Chart Check - Review Order Profile Entered On: 09/10/2018 5:25 EDT Performed On: 09/10/2018 5:00 EDT by KOKO BAILEY RN Chart Check Powerplans Initiated/Discontinued as Appropriate : Yes All Active Orders Reviewed : Yes KOKO BAILEY RN - 09/10/2018 5:25 EDT documented in this encounter Plan of Treatment Not on file documented as of this encounter Visit Diagnoses Not on filedocumented in this encounter Care Teams Laminating Machine Feeder Relationship Specialty Start Date End Date Juan José Kendall MD [address] [place] [phone] PCP - General Family Medicine 12/25/22 Juan José Kendall MD [address] [place] [phone] Referring Physician Family Medicine 12/25/22 documented as of this encounter
--- OUTSIDE RECORDS SUMMARY | 2024-03-11 09:20 | XMS_ITS | Encounter Summary ---
Author Organization [employer] Address [address] [place] [address] Care Team Providers Care Nut Grinder Name Role Phone Juan José Kendall MD Primary Care Provider + [phone] Juan José Kendall MD Unavailable [phone] Encounter Details Date Type Department Care Team (Late st Contact Info) Description 09/13/2018 Transcribed Document [facility] [place] [facility] [place] [address] ProviderLaurie MD [address] [place] [address] Social History Tobacco Use Types Packs/Day Years Used Date Smoking Tobacco: Never Assessed Comments Unknown Sex and Gender Information Value Date Recorded Sex Assigned at Not on file Legal Sex Female 2:23 PM CDT Gender Identity Not on file Sexual Orientation Not on file documented as of this encounter Miscellaneous Notes * Cerner Conversion Note - Laurie Garcia MD - 09/13/2018 7:21 PM CDT Patient: TRUDI BLAIR Age: 63 [...] alert comfortable, asympt. , pain under control, ???Better spirit ???Nausea improving ???Diarrhea improving ???Participating with PT/OT ???Stable renal function ???Hypernatremia resolved Review of Systems Constitutional: No fever, [...] mL 700 mg 14 mL, IV Piggyback, [id number] heparin 5,000 units/1 mL inj 5,000 Units 1 mL, SubCutaneous, Q8HInt metoclopramide 10 mg tab 10 mg 1 Tab, Oral, BID metoprolol tartrate 25 mg tab 25 mg 1 Tab, Oral, Daily ondansetron 4 mg/2 mL inj 4 mg 2 mL, IV Push, [id number] pantoprazole EC 40 mg tab 40 mg [...] Stress incontinence Physical Examination VS/Measurements Vital Measurements 09/13/2018 15:36 EDT Systolic Blood Pressure 140 mmHg Diastolic Blood Pressure 63 mmHg Temperature Source Oral Temperature Mode Fahrenheit Temperature, Fahrenheit 98.4 Deg F Clinical Temperature, C 36.9 Deg C Heart Rate Monitored 73 bpm Respiratory Rate 18 Breaths/Min Oxygen Saturation [...] Review / Management Results review: All Results 09/13/2018 5:22 EDT Sodium Level 146 mmol/L [...] nebs -For risk precautions -Sleep apnea precautions -Continue IV antibiotics as recommended by infectious disease -Stress ulcer prophylaxis. documented in this encounter Plan of Treatment Not on file documented as of this encounter Visit Diagnoses Not on filedocumented in this encounter Care Teams Nut Grinder Relationship Specialty Start Date End Date Juan José Kendall MD [address] [place] [address] [place] [phone] PCP - General Family Medicine 12/25/22 Juan José Kendall MD [address] [place] [facility] [address] [place] [phone] Referring Physician Family Medicine 12/25/22 documented as of this encounter
--- OUTSIDE RECORDS SUMMARY | 2024-03-11 09:20 | XMS_ITS | Encounter Summary ---
Author Organization [employer] Address [address] [place] [address] Care Team Providers Care Process Improvement Manager Name Role Phone Juan José Kendall MD Primary Care Provider + [phone] JuanJ osé Kendall MD Unavailable +[phone] Encounter Details Date Type Department Care Team (Late st Contact Info) Description 09/12/2018 Transcribed Document [facility] [place] [address] [place] [address] ProviderLaurie MD [address] [place] [address] Social History Tobacco Use Types Packs/Day Years Used Date Smoking Tobacco: Never Assessed Comments Unknown Sex and Gender Information Value Date Recorded Sex Assigned at Not on file Legal Sex Female 2:23 PM CDT Gender Identity Not on file Sexual Orientation Not on file documented as of this encounter Miscellaneous Notes * Cerner Conversion Note - Historical ProviderMD - 09/12/2018 5:00 PM CDT Chart Check - Review Order Profile Entered On: 09/13/2018 10:19 EDT Performed On: 09/12/2018 17:00 EDT by ENOCH PERDOMO LPN Chart Check Powerplans Initiated/Discontinued as Appropriate : Yes All Active Orders Reviewed : Yes ENOCH PERDOMO LPN - 09/13/2018 10:19 EDT documented in this encounter Plan of Treatment Not on file documented as of this encounter Visit Diagnoses Not on filedocumented in this encounter Care Teams Process Improvement Manager Relationship Specialty Start Date End Date Juan José Kendall MD [address] [place] [phone] PCP - General Family Medicine 12/25/22 Juan José Kendall MD [address] [place] [phone] Referring Physician Family Medicine 12/25/22 documented as of this encounter
--- OUTSIDE RECORDS SUMMARY | 2024-03-11 09:20 | XMS_ITS | Encounter Summary ---
Author Organization [facility] [facility] [employer] Address [address] [place] [address] Care Team Providers Care Retail Greeting Card Merchandiser Name Role Phone Juan José Kendall MD Primary Care Provider +- [phone] Juan José Kendall MD Unavailable [phone] Encounter Details Date Type Department Care Team (Late st Contact Info) Description 09/11/2018 Transcribed Document [facility] [place] [address] ProviderLaurie MD [address] [place] [address] Social History Tobacco Use Types Packs/Day Years Used Date Smoking Tobacco: Never Assessed Comments Unknown Sex and Gender Information Value Date Recorded Sex Assigned at Not on file Legal Sex Female 2:23 PM CDT Gender Identity Not on file Sexual Orientation Not on file documented as of this encounter Miscellaneous Notes * Cerner Conversion Note - Laurie ProviderMD - 09/11/2018 9:00 AM CDT Pain Assessment Entered On: 09/11/2018 10:58 EDT Performed On: 09/11/2018 10:17 EDT by ORLY RICHARDS RN Intervention Information: acetaminophen Performed by ORLY RICHARDS RN on 09/11/2018 09:17:00 EDT acetaminophen,500mg Oral Pain Assessment Pain Assessment : Follow-up assessment Pain Scale Goal : 3 Pain Scale Used : 0-10 Scale ORLY RICHARDS RN - 09/11/2018 10:58 EDT Pain Scale Intensity : 4 ORLY RICHARDS RN - 09/11/2018 10:58 EDT Image 4 - Images currently included in the form version of this document have not been included in the text rendition version of the form. documented in this encounter Plan of Treatment Not on file documented as of this encounter Visit Diagnoses Not on filedocumented in this encounter Care Teams Retail Greeting Card Merchandiser Relationship Specialty Start Date End Date Juan José Kendall MD [address] [facility] [address] [place] [phone] PCP - General Family Medicine 12/25/22 Juan José Kendall MD [address] [place] [facility] [address] [place] [phone] Referring Physician Family Medicine 12/25/22 documented as of this encounter
--- OUTSIDE RECORDS SUMMARY | 2024-03-11 09:20 | XMS_ITS | Encounter Summary ---
Author Organization [employer] Address [address] [place] [address] Care Team Providers Care Funeral Car Chauffeur Name Role Phone Juan José Kendall MD Primary Care Provider + [phone] Juan José Kendall MD Unavailable [phone] Encounter Details Date Type Department Care Team (Late st Contact Info) Description 09/12/2018 Transcribed Document [facility] [place] [address] ProviderLaurie MD [address] [place] [address] Social History Tobacco Use Types Packs/Day Years Used Date Smoking Tobacco: Never Assessed Comments Unknown Sex and Gender Information Value Date Recorded Sex Assigned at Not on file Legal Sex Female 2:23 PM CDT Gender Identity Not on file Sexual Orientation Not on file documented as of this encounter Miscellaneous Notes * Cerner Conversion Note - Historical ProviderMD - 09/12/2018 3:00 AM CDT Nutrition Assessment Entered On: 09/12/2018 7:42 EDT Performed On: 09/12/2018 7:42 EDT by Nery Mckee Manager Analytical Nutrition Assessment Current Nutrition Regimen Comment : 09/12: Per note, pt has had nausea and diarrhea but improving. Pt states she is slightly nauseous this am-states she is drinking supplements but continues to receive vanilla ensure and simón orange, though pt would prefer chocolate ensure and fruit punch simón. RD adjusted orders in HT. RD requested new wt-chart discrepancies noted. 09/09: RD rec'd consult for BMI>40. 63 yo female newly admitted to [facility]. Pt seen yesterday by RD-will reorder supplements and follow up as scheduled. Dx: sepsis, left prosthetic knee infection, prolonged IV abx PMH: GERD, high cholesterol, HTN Labs: Na 147, BUN 29, Cr 1.5, alb 2.6 Meds: statitin, Zofran, KCl, florastor, abx, prn pain Skin: L knee medial +NPWT, left heel unstageable, bilat medial upper thighs stage 1, left posterior heel stage 2; no edema documented GI: LBM 09/11, active BS Diet: Regular, Ensure Enlive BID (chocolate @ B+ D), Simón BID Intake: avg 28% x 5 meals, 100% supplements documented Ht: 168cm () Wt: 140kg/308#, no new wt (09/12) Wt Hx: 265# (06/23), 123kg/270# (08/30/18) BMI: 49.7 IBW/%IBW: 130#/208% Nery Mckee Dietician - 09/12/2018 11:02 EDT Nutrition Assessment Reason : Follow Up Nery Mckee Dietician - 09/12/2018 7:42 EDT Nutrition Diagnoses Nutrient Intake : Increased nutrient needs Nutrient Intake Related to : skin integrity Nutrient Intake As Evidenced by : L knee medial +NPWT, left heel unstageable, bilat medial upper thighs stage 1, left posterior heel stage 2 Nutrient Intake Status : Active Increased Nutrient Needs Comment : protein Nery Mckee Dietician - 09/12/2018 11:02 EDT Nutrition Interventions Meals and Snacks : General/Healthful diet Meals and Snacks Other Comment : ensure enlive, simón Nutrition Supplement Therapy : Commercial beverage Nery Mckee Dietician - 09/12/2018 11:02 EDT Monitoring/Evaluation Energy Intake : Total energy intake Weight Status : Weight loss Gastrointestinal Function : Bowel Function Integumentary : Wound Status Nery Mckee Dietician - 09/12/2018 11:02 EDT Nutrition Recommendations Dietitian Recommendations : 1. continue current diet w/ensure enlive and simón. encourage supplement use. goal: po intake>50%, supplement use 2. obtain wt weekly goal: no signficant unintended wt changes, beneficial wt loss encouraged Nery Mckee, Manager Analytical - 09/12/2018 11:02 EDT documented in this encounter Plan of Treatment Not on file documented as of this encounter Visit Diagnoses Not on filedocumented in this encounter Care Teams Funeral Car Chauffeur Relationship Specialty Start Date End Date Juan José Kendall MD [address] [place] [facility] [address] [place] [address] PCP - General Family Medicine 12/25/22 Juan José Kendall MD [address] [place] [facility] [address] [place] [phone] Referring Physician Family Medicine 12/25/22 documented as of this encounter
--- OUTSIDE RECORDS SUMMARY | 2024-03-11 09:20 | XMS_ITS | Encounter Summary ---
Author Organization [employer] Address [address] [place] [address] Care Team Providers Care Healthcare Risk Control Consultant Name Role Phone Juan José Kendall MD Primary Care Provider + [phone] Juan José Kendall MD Unavailable [phone] Encounter Details Date Type Department Care Team (Late st Contact Info) Description 09/10/2018 Transcribed Document [facility] [place] [facility] [place] [address] ProviderLaurie MD [address] [place] [address] Social History Tobacco Use Types Packs/Day Years Used Date Smoking Tobacco: Never Assessed Comments Unknown Sex and Gender Information Value Date Recorded Sex Assigned at Not on file Legal Sex Female 2:23 PM CDT Gender Identity Not on file Sexual Orientation Not on file documented as of this encounter Miscellaneous Notes * Cerner Conversion Note - Laurie Garcia MD - 09/10/2018 5:42 PM CDT Patient: TRUDI BLAIR Age: 63 [...] alert comfortable, asympt. , pain under control, ???Complaining of diarrhea and intractable nausea ???Stool softeners discontinued ???On multiple antinausea medications ???Poor appetite Review of Systems Constitutional: No [...] reflux Current medications: Medications (35) Active Scheduled: (15) acetaminophen 500 mg tab 500 mg 1 Tab, Oral, Q6HInt ammonium lact 12% lot 225 g 1 Application, Topical, BID atorvastatin 20 mg tab 20 mg 1 Tab, Oral, At Bedtime collagenase 250 unit/1 g oint 2 g 1 Application, Topical, Daily DAPTOmycin + NaCl 0.9% 50 mL 700 mg 14 mL, IV Piggyback, [id number] docusate sodium 100 mg cap 100 mg 1 Cap, Oral, BID heparin 5,000 units/1 mL inj 5,000 Units 1 mL, SubCutaneous, Q8HInt metoclopramide 10 mg tab 10 mg 1 Tab, Oral, BID metoprolol tartrate 25 mg tab 25 mg 1 Tab, Oral, Daily ondansetron 4 mg/2 mL inj 4 mg 2 mL, IV Push, [id number] pantoprazole EC 40 mg tab 40 mg [...] Stress incontinence Physical Examination VS/Measurements Vital Measurements 09/10/2018 15:44 EDT Temperature Source Oral Temperature Mode Fahrenheit Temperature, Fahrenheit 98.1 Deg F Clinical Temperature, C 36.7 Deg C Heart Rate Monitored 61 bpm Respiratory Rate 16 Breaths/Min Systolic Blood Pressure 148 mmHg HI Diastolic Blood Pressure 62 mmHg Oxygen Saturation 96 % 09/09/2018 23:00 EDT Temperature Source Oral Temperature Mode Fahrenheit Temperature, Fahrenheit 98.1 Deg F Clinical Temperature, C 36.7 Deg C Heart Rate Monitored 66 bpm Respiratory Rate 16 Breaths/Min Systolic Blood Pressure 139 mmHg Diastolic Blood Pressure 62 mmHg Oxygen Saturation 93 % LOW General: Alert [...] Review / Management Results review: All Results 09/10/2018 4:55 EDT Sodium Level 145 mmol/L Potassium Level 3.3 mmol/L LOW Chloride Level 111 mmol/L Carbon Dioxide Level 29 mmol/L Anion Gap 8 LOW Glucose Level 80 mg/dL Blood Urea Nitrogen 26 mg/dL HI Creatinine Level 1.60 mg/dL HI eGFR 39 mL/min/1.73m2 LOW eGFR NonAfrican 32 mL/min/1.73m2 LOW Bun/Creatinine 16.2 Calcium Level 8.5 mg/dL 09/09/2018 4:51 EDT Sodium Level 146 mmol/L Potassium Level 3.1 mmol/L LOW Chloride Level 110 mmol/L Carbon Dioxide Level 29 mmol/L Anion Gap 10 Glucose Level 86 mg/dL Blood Urea Nitrogen 30 mg/dL HI Creatinine Level 1.60 mg/dL HI [...] 14.1 % LOW Lymph # 1.00 x10(3)/uL Edwards % 9.6 % HI Edwards # 0.68 K/uL Eos % 6.5 % Eos # 0.46 x10(3)/uL Baso % 0.8 % Baso # 0.06 x10(3)/uL Slide Review No IG# 0.11 x10(3)/uL HI IG% 1.60 % HI . Condition: Stable. Impression and Plan Diagnosis [...] blood glucose, and urine output. -Continue on mechanical ventilation support -Continue wound care X -Pain control -DVT prophylaxis -Close monitoring fluid and electrolytes -When necessary nebs -Imodium 2 by mouth after each loose stool -Consider cholestyramine. Diarrhea continued -Consider GI consult if nausea continues. documented in this encounter Plan of Treatment Not on file documented as of this encounter Visit Diagnoses Not on filedocumented in this encounter Care Teams Healthcare Risk Control Consultant Relationship Specialty Start Date End Date [...]
--- OUTSIDE RECORDS SUMMARY | 2024-03-11 09:20 | XMS_ITS | Encounter Summary ---
Author Organization [employer] Address [address] [place] [address] Care Team Providers Care Supervisor Fish Processing Name Role Phone Juan José Kendall MD Primary Care Provider +- [phone] Juan José Kendall MD Unavailable [phone] Encounter Details Date Type Department Care Team (Late st Contact Info) Description 09/12/2018 Transcribed Document [facility] [place] [facility] [place] [address] ProviderLaurie MD [address] [place] [address] [id number] Social History Tobacco Use Types Packs/Day Years Used Date Smoking Tobacco: Never Assessed Comments Unknown Sex and Gender Information Value Date Recorded Sex Assigned at Not on file Legal Sex Female 2:23 PM CDT Gender Identity Not on file Sexual Orientation Not on file documented as of this encounter Miscellaneous Notes * Cerner Conversion Note - Laurie ProviderMD - 09/12/2018 3:00 AM CDT Pain Assessment Entered On: 09/12/2018 6:47 EDT Performed On: 09/12/2018 4:21 EDT by Linh Honeycutt RN Intervention Information: acetaminophen Performed by Linh Honeycutt RN on 09/12/2018 03:21:00 EDT acetaminophen,500mg Oral Pain Assessment Pain Assessment : Follow-up assessment Pain Scale Goal : 3 Pain Improved by Intervention : Yes Linh Honeycutt RN - 09/12/2018 6:46 EDT documented in this encounter Plan of Treatment Not on file documented as of this encounter Visit Diagnoses Not on filedocumented in this encounter Care Teams Supervisor Fish Processing Relationship Specialty Start Date End Date Juan José Kendall MD [address] [facility] [address] [place] [address] PCP - General Family Medicine 12/25/22 Juan José Kendall MD [address] [facility] [address] [place] [address] Referring Physician Family Medicine 12/25/22 documented as of this encounter
--- OUTSIDE RECORDS SUMMARY | 2024-03-11 09:20 | XMS_ITS | Encounter Summary ---
Author Organization [employer] Address [address] [place] [address] Care Team Providers Care Biodiesel Plant Manager Name Role Phone Juan José Kendall MD Primary Care Provider +- [phone] Juan José Kendall MD Unavailable [phone] Encounter Details Date Type Department Care Team (Late st Contact Info) Description 09/09/2018 Transcribed Document [facility] [place] [address] ProviderLaurie MD [address] [place] [id number] Social History Tobacco Use Types Packs/Day Years Used Date Smoking Tobacco: Never Assessed Comments Unknown Sex and Gender Information Value Date Recorded Sex Assigned at Not on file Legal Sex Female 2:23 PM CDT Gender Identity Not on file Sexual Orientation Not on file documented as of this encounter Miscellaneous Notes * Cerner Conversion Note - Historical ProviderMD - 09/09/2018 2:55 PM CDT Treatment Intervention, OT Entered On: 09/28/2018 14:53 EDT Performed On: 09/28/2018 14:36 EDT by BRY BAILEY, OTR/L General Information, OT Visit Type, OT : Treatment Note Patient Orders : Order Date Order Ordering 09/08/2018 20:45 OT Evaluation and Treatment Ordered By: JONES HIDALGO MD-INT 09/09/2018 14:55 OT Additional Treatment Ordered By: Active Diagnoses : 09/09/2018 00:00 Acute embolism [...] infectious disease Admission Date : 09/08/2018 18:19 Personal Devices : Personal Devices Glasses Assistive Devices : Assistive Devices No Devices Recorded Precautions in Place : Fall prevention measures, Other: TTWB LLE BRY BAILEY OTR/Ivan - 09/28/2018 14:49 EDT General Status Treatment Start Time : 09/28/2018 14:16 EDT RN/PCT Informed Comment : [facility] ward Treatment End Time : 09/28/2018 14:36 EDT Treatment Time : 20 Minute(s) BRY BAILEY OTR/Ivan - 09/28/2018 14:49 EDT Plan of Care, OT OT Tx Plan/Goals Established w Patient : Yes BRY BAILEY OTR/Ivan - 09/28/2018 14:49 EDT Oil Tank Car Cleaner Goals, OT Grooming LTG Grid Goal #1 Activity : Grooming Assist : Supervision or set up Date to Meet : 10/07/2018 EDT Goal Status : Progressing, continue BRY BAILEY OTR/Ivan - 09/28/2018 14:49 EDT Dressing, Lower Body LTG Grid Goal #1 Activity : Dressing, Lower Body Assist : Assist, minimal Equipment : Long Handled Laboratory Chief, Sock aid, Long handled shoehorn Date to Meet : 10/07/2018 EDT Goal Status : Initial goal BRY BAILEY OTR/Ivan - 09/28/2018 14:49 EDT Toilet Transfer LTG Grid Goal #1 Activity : Toilet Transfer, Squat Pivot Sit Assist : Assist, maximal Date to Meet : 10/07/2018 EDT Goal Status : Initial goal BRY BAILEY OTR/Ivan - 09/28/2018 14:49 EDT Bed Mobility/ Bed Transfer LTG Grid Goal #1 Goal #2 Activity : Bed Mobility, Supine to Sit Bed Mobility, Sit to Supine Assist : Assist, moderate Assist, moderate Date to Meet : 09/23/2018 EDT 10/07/2018 EDT Goal Status : Goal met Progressing, continue Date Met : 09/23/2018 EDT BRY BAILEY OTR/Ivan - 09/28/2018 14:49 EDT BRY BAILEY OTR/Ivan - 09/28/2018 14:49 EDT Other LTG Grid Goal #1 Goal #2 Goal : pt to sit EOB 5 minutes for functional task pt to be independent with B UE HEP for strengthening Date to Meet : 09/23/2018 EDT 10/07/2018 EDT Goal Status : Goal met Revised Date Met : 10/07/2018 EDT BRY BAILEY OTR/Ivan - 09/28/2018 14:49 EDT BRY BAILEY OTR/Ivan - 09/28/2018 14:49 EDT Treatment Note Subjective Comment : Agreeable. Pleasant. Pt's present. Patient's Response to Treatment : Some pain in L knee reported. 8/10 sharp pains. Pt has good core strength. Additional Objective Information : Pt participating in UE and LE bed excercises. Pt states she has been up to the side of the bed with her twice today. Assessment : Progressing. BRY BAILEY OTR/Ivan - 09/28/2018 14:49 EDT Pain Assessment Pain Scaled Used : 0-10 Pain scale Pain Score Post-Intervention. : 0 BRY BAILEY OTR/Ivan - 09/28/2018 14:49 EDT Image 1 - Images currently included in the form version of this document have not been included in the text rendition version of the form. [facility] OT Charges OT Ther Activities Ea 15 Min : 1 BRY BAILEY OTR/Ivan - 09/28/2018 14:49 EDT documented in this encounter Plan of Treatment Not on file documented as of this encounter Visit Diagnoses Not on filedocumented in this encounter Care Teams Biodiesel Plant Manager Relationship Specialty Start Date End Date Juan José Kendall MD [address] [facility] [address] [place] [address] PCP - General Family Medicine 12/25/22 Juan José Kendall MD [address] [facility] [address] [place] [phone] Referring Physician Family Medicine 12/25/22 documented as of this encounter
--- OUTSIDE RECORDS SUMMARY | 2024-03-11 09:21 | XMS_ITS | Encounter Summary ---
Author Organization [employer] Address [address] [place] [address] Care Team Providers Care Belt And Link Shop Supervisor Name Role Phone Juan José Kendall MD Primary Care Provider +- [phone] Juan José Kendall MD Unavailable [phone] Encounter Details Date Type Department Care Team (Late st Contact Info) Description 09/08/2018 Transcribed Document [facility] [place] [facility] [place] [address] ProviderLaurie MD [address] [place] [address] Social History Tobacco Use Types Packs/Day Years Used Date Smoking Tobacco: Never Assessed Comments Unknown Sex and Gender Information Value Date Recorded Sex Assigned at Not on file Legal Sex Female 2:23 PM CDT Gender Identity Not on file Sexual Orientation Not on file documented as of this encounter Miscellaneous Notes * Cerner Conversion Note - Laurie ProviderMD - 09/08/2018 8:45 PM CDT Pain Assessment Entered On: 09/26/2018 4:01 EDT Performed On: 09/25/2018 21:48 EDT by Angy Esqueda Rn Intervention Information: acetaminophen Performed by Angy Esqueda Rn on 09/25/2018 20:48:00 EDT acetaminophen,650mg Oral,Other (See Comment) Pain Assessment Pain Assessment : Follow-up assessment Pain Scale Goal : 3 Pain Scale Used : 0-10 Scale Pain Intervention, Drug : Medicated Pain Improved by Intervention : Yes Angy Esqueda Rn - 09/26/2018 4:01 EDT Pain Scale Intensity : 4 Angy Esqueda Rn - 09/26/2018 4:01 EDT Image 4 - Images currently included in the form version of this document have not been included in the text rendition version of the form. documented in this encounter Plan of Treatment Not on file documented as of this encounter Visit Diagnoses Not on filedocumented in this encounter Care Teams Belt And Link Shop Supervisor Relationship Specialty Start Date End Date Juan José Kendall MD [address] [facility] [address] [place] [address] PCP - General Family Medicine 12/25/22 Juan José Kendall MD [address] [facility] [address] [place] [address] Referring Physician Family Medicine 12/25/22 documented as of this encounter
--- OUTSIDE RECORDS SUMMARY | 2024-03-11 09:21 | XMS_ITS | Encounter Summary ---
Author Organization [employer] Address [address] [place] [address] Care Team Providers Care Maintenance Dispatcher Name Role Phone Juan José Kendall MD Primary Care Provider +- [phone] Juan José Kendall MD Unavailable [phone] Encounter Details Date Type Department Care Team (Late st Contact Info) Description 09/06/2018 Transcribed Document [facility] [place] [address] [place] [address] ProviderLaurie MD [address] [place] [address] Social History Tobacco Use Types Packs/Day Years Used Date Smoking Tobacco: Never Assessed Comments Unknown Sex and Gender Information Value Date Recorded Sex Assigned at Not on file Legal Sex Female 2:23 PM CDT Gender Identity Not on file Sexual Orientation Not on file documented as of this encounter Miscellaneous Notes * Cerner Conversion Note - Laurie ProviderMD - 09/06/2018 12:23 PM CDT UM Authorization Entered On: 09/06/2018 12:25 EDT Performed On: 09/06/2018 12:23 EDT by KAZ DIAZ RN-Utilization Review Primary Insurance Authorization Authorization and Policy Numbers : Insurance 1 Health Plan: [employer] Policy Number: Authorization Number: [id number] Insurance 2 Health Plan: MEDICARE Policy Number: [id number] Authorization Number: Insurance Primary Name : Luz CHEUNG Authorization Status-Primary : Admit approved Authorization Number-Primary : [id number] Number of Days Authorized-Primary : DRG Authorized Service Begin Date-Primary : 08/30/2018 EDT Authorized Service End Date-Primary : 09/06/2018 EDT Authorization Comments-Primary : Call to Luz CHEUNG to obtain fax # for cont stay--clinicals faxed for cont stay via cerner to [phone]. (09/05-09/06/18) Historical Authorization Comments-Primary : Comment 1: Per Availity site (referred to different section than normal), inpt admission approved. Auth noted. Will need d/c date called. (Inder Cowan, Alexi Search Engineer-Utilization Mgt 08/31/2018 12:52) KAZ DIAZ, RN-Utilization Review - 09/06/2018 12:23 EDT documented in this encounter Plan of Treatment Not on file documented as of this encounter Visit Diagnoses Not on filedocumented in this encounter Care Teams Maintenance Dispatcher Relationship Specialty Start Date End Date Juan José Kendall MD [address] [place] [facility] [address] [place] [address] PCP - General Family Medicine 12/25/22 Juan José Kendall MD [address] [facility] [address] [place] [phone] Referring Physician Family Medicine 12/25/22 documented as of this encounter
--- OUTSIDE RECORDS SUMMARY | 2024-03-11 09:21 | XMS_ITS | Encounter Summary ---
Author Organization [employer] Address [address] [place] [address] Care Team Providers Care Straightedge Worker Name Role Phone Juan José Kendall MD Primary Care Provider + [phone] Juan José Kendall MD Unavailable [phone] Encounter Details Date Type Department Care Team (Late st Contact Info) Description 09/08/2018 Transcribed Document [facility] [place] [address] ProviderLaurie MD [address] [place] [id number] Social History Tobacco Use Types Packs/Day Years Used Date Smoking Tobacco: Never Assessed Comments Unknown Sex and Gender Information Value Date Recorded Sex Assigned at Not on file Legal Sex Female 2:23 PM CDT Gender Identity Not on file Sexual Orientation Not on file documented as of this encounter Miscellaneous Notes * Cerner Conversion Note - Historical ProviderMD - 09/08/2018 7:01 PM CDT Education-Wound Care Entered On: 09/09/2018 3:24 EDT Performed On: 09/08/2018 19:01 EDT by Linh Honeycutt RN Teaching/Learning Assessment Barriers To Learning : None evident Individuals Taught : Patient Learning Style Preferences Patient : Demonstration, Verbal explanation Learning Style Preferences Family : Demonstration, Verbal explanation Linh Honeycutt, RN - 09/09/2018 3:23 EDT Electronically signed by [facility] Conversion Dental Ceramist Cerner at 07/24/2022 3:33 PM CDT documented in this encounter Plan of Treatment Not on file documented as of this encounter Visit Diagnoses Not on filedocumented in this encounter Care Teams Straightedge Worker Relationship Specialty Start Date End Date Juan José Kendall MD [address] [place] [address] PCP - General Family Medicine 12/25/22 Juan José Kendall MD [address] [place] [phone] Referring Physician Family Medicine 12/25/22 documented as of this encounter
--- OUTSIDE RECORDS SUMMARY | 2024-03-11 09:21 | XMS_ITS | Encounter Summary ---
Author Organization [employer] Address [address] [place] [address] Care Team Providers Care Tile Trimmer Name Role Phone Romulo Kendall MD Primary Care Provider + [phone] Romulo Kendall MD Unavailable [phone] Encounter Details Date Type Department Care Team (Late st Contact Info) Description 09/08/2018 Transcribed Document [facility] [place] Family Medicine [facility] [place] [address] ProviderLaurie MD [address] [place] [id number] Social History Tobacco Use Types Packs/Day Years Used Date Smoking Tobacco: Never Assessed Comments Unknown Sex and Gender Information Value Date Recorded Sex Assigned at Not on file Legal Sex Female 2:23 PM CDT Gender Identity Not on file Sexual Orientation Not on file documented as of this encounter Miscellaneous Notes * Cerner Conversion Note - Laurie ProviderMD - 09/08/2018 4:16 [place] [address] TRUDI BLAIR :1955 Visit Time:08/30/2018 Your Visit Summary Your Care Team Admitting Physician - JONES HIDALGO MD-INT Attending Physician - JONES HIDALGO MD-INT Primary Care Physician - ROMULO KENDALL (REF)MD Referring Physician - ROMULO KENDALL (REF)MD Your Diagnosis PILY (acute kidney injury) Anemia Arthritis due to other bacteria, unspecified knee, Arthritis due to other bacteria, unspecified knee Enterococcus UTI (urinary tract infection) GERD (gastroesophageal reflux disease) History of obstructive sleep apnea HTN (hypertension) Hypercholesterolemia Hypoalbuminemia Left posterior tibial vein thrombosis Left prosthetic knee infection Metabolic acidosis MRSA and Enterobacter bacteremia Sepsis Status post left total knee arthroplasty prosthesis explantation and spacer was on antibiotic placement Stress incontinence Wound infection after surgery ,Left Knee What to do next Instructions From Your Care Team PATIENT WILL DISCHARGE TO [facility] TODAY VIA AMBULANCE AT 4:30, RN PLEASE CALL REPORT TO [phone] Discharge Activity: As per Dr. Santacruz recommendations, Discharge Activity: Other (use Special Instructions) Diet: Discharge Diet: Resume usual diet as tolerated Follow-Up Appointments Follow Up with JONG SANTACRUZ When Within 2 to 3 days Comments Call for follow up appointment Where: [facility] [address] [place] [address]- Business (1) Medications What How Much When Instructions Next Dose acetaminophen (acetaminophen 500 mg oral tablet) 1 Tablet(s) Oral Interval Every 6 Hours ammonium lactate topical (Amlactin 12% topical lotion) 1 Application(s) Topical Two Times A Day bumetanide (Bumex) 2 Milligram(s) Oral Two Times A Day collagenase topical (Santyl 250 units/ g topical ointment) 1 Application(s) Topical Every Day DAPTOmycin (DAPTOmycin 350 mg intravenous injection) See instructions 700 mg IV daily Pickup at [facility] HYDROmorphone (HYDROmorphone 1 mg/ mL injectable solution) 0.5 Milliliter(s) Intravenous Push Every 3 Hours as needed for Pain (Severe 7-10) oxyCODONE (oxyCODONE 5 mg oral tablet) 2 Tablet(s) Oral Every 4 Hours as needed for Pain (Moderate 4-6) scopolamine (Transderm-Scop 1.5 mg transdermal film, extended release) 1 Patch(es) TransDermal Every 3 Days as needed for Nausea/Vomiting metoclopramide (metoclopramide 10 mg oral tablet) 1 Tablet(s) Oral Two Times A Day metoclopramide (metoclopramide 5 mg/ mL injectable solution) 1 Milliliter(s) Intravenous Push Every 6 Hours as needed for Nausea/Vomiting pantoprazole (pantoprazole 40 mg oral delayed release tablet) 1 Tablet(s) Oral Every Day simvastatin (simvastatin 40 mg oral tablet) 1 Tablet(s) Oral At Bedtime topiramate (topiramate 25 mg oral capsule) 1 Capsule(s) Oral Two Times A Day Pharmacy Information [facility]: [address] [address] [address] [facility] [address] [place] [phone] Take your medications faithfully. Do NOT skip [...] This Visit No Immunizations Found Education Materials What to expect after the Procedure: After the procedure, it is common to have: ??? Pain and swelling. ??? A small amount of blood or clear fluid coming from your incision for up to 7 days. ??? It is normal to have a moderate amount of bleeding from the site of the drain that was pulled on the morning after surgery. You can hold pressure on the area for 3-5 minutes and cover with a bandage as needed. Diet: ??? Resume usual diet ??? No alcoholic beverages while taking pain medication ??? Drink 8-10 glasses of water a day to prevent constipation from pain medication ??? Increase fiber to help prevent constipation. Straining can cause increased pressure and pain in your incision area ??? Increase protein to promote healing Driving: ??? Do not drive until your health care provider approves. Ask your health care provider when it is safe to drive if you have an immobilizer on your knee. ??? Do not drive or operate heavy machinery while taking prescription pain medicine. ??? Do not drive for 24 hours if you received a sedative. Activity: ??? Do not lift anything that is heavier than 10 lb (4.5 kg) until your health care provider approves. ??? No strenuous activity ??? Avoid high-impact activities, including running, jumping rope, and jumping jacks. ??? Avoid sitting for a long time without moving. Get up and move around at least every few hours. ??? Keep legs elevated while seated and place surgery leg on 2-3 pillows, this will decrease swelling ??? Continue doing blue foam and zepeda basin ???tub time?? 3 times a day for 30 minutes at a time. More often is better. ??? Continue using walker until cleared by physical therapy Bathing: ??? Do not take baths, swim, or use a hot tub for one month after surgery. ??? May shower on the third day after surgery by covering incision with Glad Brand Press and Seal saran wrap. After showering, dry off completely BEFORE removing saran wrap. ??? Use Press and Seal saran wrap to shower for one month after surgery ??? You must be seated to shower until you are no longer using the walker Other: ??? Use ice therapy for 20-30 minutes at a time and leave off for 20-30 minutes at a time. Always keep a towel or cloth between the ice pack and your skin ??? Continue to use Incentive Spirometer 10 times an hour while awake for one month to help prevent pneumonia Contact a health care provider if: ??? You have more redness, swelling, or pain around your incision. ??? You have more fluid or blood coming from your incision. ??? Your incision or drain site feels warm to the touch. ??? You have pus or a bad smell coming from your incision. ??? You have a fever. ??? Your incision breaks open after your health care provider removes your sutures, skin glue, or adhesive tape. ??? Your prosthesis feels loose. ??? You have knee pain that does not go away. DVT: Blood Clot Blood clots are a common risk after an orthopedic surgery Symptoms: ??? Swelling of your leg or arm, especially if one side is much worse. ??? Warmth and redness of your leg or arm, especially if one side is much worse. ??? Pain in your arm or leg. If the clot is in your leg, symptoms may be more noticeable or worse when you stand or walk. ??? A feeling of pins and needles, if the clot is in the arm. The symptoms of a DVT that has traveled to the lungs (pulmonary embolism, PE) usually start suddenly and include: ??? Shortness of breath while active or at rest. ??? Coughing or coughing up blood or blood-tinged mucus. ??? Chest pain that is often worse with deep breaths. ??? Rapid or irregular heartbeat. ??? Feeling light-headed or dizzy. ??? Fainting. ??? Feeling anxious. ??? Sweating. There may also be pain and swelling in a leg if that is where the blood clot started. How is this prevented? Exercise regularly. For at least 30 minutes every day, engage in: ? Activity that involves moving your arms and legs. ? Activity that encourages good blood flow through your body by increasing your heart rate. ??? Exercise your arms and legs every hour during long-distance travel (over 4 hours). ??? Drink plenty of water and avoid drinking alcohol while traveling. ??? Avoid sitting or lying in bed for long periods of time without moving your legs. ??? Maintain a weight that is appropriate for your height. Ask your health care provider what weight is healthy for you. ??? If you are a woman who is over 35 years of age, avoid unnecessary use of medicines that contain estrogen. These include control pills. ??? Do not smoke, especially if you take estrogen medicines. If you need help quitting, ask your health care provider. ??? Wear compression stockings (if told by your health care provider) to help prevent blood clots from forming. High Fiber/High Protein Diet High fiber foods: To prevent constipation ??? Grains Whole-grain breads. Multigrain cereal. Oats and oatmeal. Brown rice. Barley. Bulgur wheat. Millet. Bran muffins. Popcorn. [place] wafer crackers. ??? Vegetables Sweet potatoes. Spinach. Kale. Artichokes. Cabbage. Broccoli. Green peas. Carrots. Squash. ??? Fruits Berries. Pears. Apples. Oranges. Avocados. Prunes and raisins. Dried figs. ??? Meats and Other Protein Sources [place], kidney, saxena, and soy beans. Split peas. Lentils. Nuts and seeds. ??? Dairy Fiber-fortified yogurt. ??? Beverages Fiber-fortified soy milk. Fiber-fortified orange juice. ??? Other Fiber bars. High-protein foods: To promote healing High-protein foods contain 4 grams (4 g) or more of protein per serving. They include: ??? Beef, ground sirloin (cooked) ??? 3 oz have 24 g of protein. ??? Cheese (hard) ??? 1 oz has 7 g of protein. ??? Chicken breast, boneless and skinless (cooked) ??? 3 oz have 13.4 g of protein. ??? Cottage cheese ??? 1/2 cup has 13.4 g of protein. ??? Egg ??? 1 egg has 6 g of protein. ??? Fish, filet (cooked) ??? 1 oz has 6???7 g of protein. ??? Garbanzo beans (canned or cooked) ??? 1/2 cup has 6???7 g of protein. ??? Kidney beans (canned or cooked) ??? 1/2 cup has 6???7 g of protein. ??? Talavera (cooked) ??? 3 oz has 24 g of protein. ??? Milk ??? 1 cup (8 oz) has 8 g of protein. ??? Nuts (peanuts, pistachios, almonds) ??? 1 oz has 6 g of protein. ??? Peanut butter ??? 1 oz has 7???8 g of protein. ??? Pork tenderloin (cooked) ??? 3 oz has 18.4 g of protein. ??? Pumpkin seeds ??? 1 oz has 8.5 g of protein. ??? Soybeans (roasted) ??? 1 oz has 8 g of protein. ??? Soybeans (cooked) ??? 1/2 cup has 11 g of protein. ??? Soy milk ??? 1 cup (8 oz) has 5???10 g of protein. ??? Soy or vegetable henry ??? 1 henry has 11 g of protein. ??? [place] seeds ??? 1 oz has 5.5 g of protein. ??? Tofu (firm) ??? 1/2 cup has 20 g of protein. ??? Tuna (canned in water) ??? 3 oz has 20 g of protein. ??? Yogurt ??? 6 oz has 8 g of protein. Fall Prevention ??? Use night lights. ??? Install grab bars by the toilet and in the tub and shower. Do not use towel bars as grab bars. ??? Use non-skid mats or decals on the floor of the tub or shower. ??? If you need to sit down while you are in the shower, use a plastic, non-slip stool. ??? Keep the floor dry. Immediately clean up any water that spills on the floor. ??? Remove soap buildup in the tub or shower on a regular basis. ??? Remove throw rugs and other tripping hazards from the floor. ??? Place frequently used items in [id number] places ??? Keep electrical cables out of the way. ??? Do not leave any items on the stairs. ??? Make sure that there are handrails on both sides of the stairs. Fix handrails that are broken or loose. Make sure that handrails are as long as the stairways. ??? Check any carpeting to make sure that it is firmly attached to the stairs. Fix any carpet that is loose or worn. ??? Avoid having throw rugs at the top or bottom of stairways, or secure the rugs with carpet tape to prevent them from moving. ??? Wear closed-toe shoes that fit well and support your feet. Wear shoes that have rubber soles or low heels. ??? Use mobility aids as needed, such as canes, walkers, scooters, and crutches. ??? Turn on lights if it is dark. Replace any light bulbs that burn out. ??? Set up furniture so that there are clear paths. Keep the furniture in the same spot. ??? Be aware of any and all pets. ??? Review your medicines with your healthcare provider. Some medicines can cause dizziness or changes in blood pressure, which increase your risk of falling. Hand Washing You should wash your hands whenever you think they are dirty. You should also wash your hands: ??? After: ? Working or playing outside. ? Touching an animal or its toys or leash. ? Handling livestock. ? Using the bathroom. ? Using household college admissions counselor or toxic chemicals. ? Touching or taking out the garbage. ? Touching anything dirty around your home. ? Handling soiled clothes or rags. ? Taking care of a sick child. This includes touching used tissues, toys, and clothes. ? Sneezing, coughing, or blowing your nose. ? Using public transportation. ? Shaking hands. ? Using a phone, including your mobile phone. ? Touching money. ??? Before and after: ? Preparing food. ? Feeding a baby or young child. ? Eating. ? Visiting or taking care of someone who is sick. ? Changing a diaper. ? Changing a bandage (dressing) or taking care of an injury or wound. ? Giving or taking medicine. If soap and clean water are not available, use an alcohol-based wipe, spray, or hand gel. Use a hand-sanitizing agent that contains at least 60% alcohol. If you are preparing food, hand sanitizers are not recommended as a substitute for hand washing. Walker Use To Walk With a Front-Wheeled Walker: 1. Slide your front-wheeled walker one step-length in front of you. Your toes should be farther forward than the back legs of your walker. 2. Hold on to the walker for support, and step your weaker (surgery) leg into the middle of the walker. 3. Step your stronger leg forward to land next to your weaker leg. 4. Repeat the process for each step. ??? Always keep both feet within the width of the walker's legs or wheels. ??? When using your walker, you should not feel like you need to lean forward or to the side to keep your hands on the handgrips. ??? Make sure you are following any weight-bearing instructions that your health care provider has given you. ??? Be careful not to let the walker get too far ahead of you as you walk. ??? If your walker does not glide well over carpet, consider cutting an X into two tennis balls and placing the balls over the back legs of your walker. To Use a Walker to Step Up: 1. Put all four legs of the walker on the curb or step. 2. Get your feet as close to the curb or step as you can. 3. Test the steadiness of the walker by pressing down on the handgrips. 4. If the walker is steady, press down on it with your hands as you step up with your stronger leg. 5. Step up with your weaker leg. To Use a Walker to Step Down: 1. Put all four legs of the walker on the surface that is lower than the curb or step. 2. Get your feet as close to the curb or step as you can. 3. Test the steadiness of the walker by pressing down on the handgrips. 4. If the walker is steady, press down on it with your hands as you step down with your weaker leg. 5. Step down with your stronger leg. Knee Immobilizer Brace: ??? Adjust the brace as often as needed while wearing it. It should be firm but not tight. Signs that the brace is too tight include: ? Puffiness (swelling). ? Numbness. ? Color change in your foot or ankle. ? Increased pain. Emergency Awareness and Preventative Care STROKE is [...] Assistance with quitting is available by contacting 0-136-MFZMNOW. This is a free resource providing counseling, [...] CPR? There are two easy steps: Call 9-1-1 if you see a teen or adult [...] and how to prevent infections, visit www.cdc.gov/sepsis. Patient Portal Reminder: Be sure to sign up for the [facility] patient portal, which gives you 26/10 access to your medical information ??? including these discharge instructions ??? using your computer, smartphone, or tablet. Just go to [employer] to get started. Questions? Call . Test Results Laboratory or Other Results This Visit (last charted value for your 08/30/2018 visit) Hematology 09/08/18 04:37:00 WBC: 7.0 K/uL -- Normal range between ( 3.9 and 10.0 ) RBC: 2.65 Million/uL -- Normal range between ( 3.93 and 5.22 ) Hct: 25.1 % -- Normal range between ( 34.1 and 44.9 ) Hgb: 7.6 Gram/dL -- Normal range between ( 11.2 and 15.7 ) Platelet Count: 287 K/uL -- Normal range between ( 163 and 369 ) MCH: 28.7 pg -- Normal range between ( 25.6 and 32.2 ) MCHC: 30.3 Gram/dL -- Normal range between ( 32.3 and 36.5 ) MCV: 94.7 fL -- Normal range between ( 79.0 and 94.8 ) Slide Review: No Eos %: 6.8 % -- Normal range between ( 1.0 and 7.0 ) [place] #: 0.63 K/uL -- Normal range between ( 0.24 and 0.82 ) Eos #: 0.48 K/uL -- Normal range between ( 0.04 and 0.54 ) [place] %: 8.9 % -- Normal range between ( 4.7 and 12.5 ) Baso %: 0.9 % -- Normal range between ( 0.0 and 1.0 ) Baso #: 0.06 K/uL -- Normal range between ( 0.01 and 0.08 ) RDW: 17.2 % -- Normal range between ( 11.6 and 14.4 ) Neut %: 64.8 % -- Normal range between ( 34.0 and 71.0 ) Neut #: 4.57 K/uL -- Normal range between ( 1.56 and 6.13 ) Lymph %: 16.6 % -- Normal range between ( 19.3 and 53.0 ) Lymph #: 1.17 K/uL -- Normal range between ( 1.18 and 3.74 ) MPV: 10.1 fL -- Normal range between ( 9.4 and 12.4 ) IG#: 0 x10(3)/uL IG%: 2 % -- Normal range between ( 0 and 1 ) 09/05/18 04:22:00 Sed Rate Auto: 8 mm/Hr -- Normal range between ( 0 and 30 ) 09/02/18 22:17:00 Reticulocyte: 2 % -- Normal range between ( 0 and 2 ) 08/31/18 07:02:[address] Oth: 0 Urinalysis 08/31/18 03:53:00 Ur RBC: 2-5 /HPF Urine Nitrite: Negative Urine Leukocyte Esterase: Negative Urine Appearance: Cloudy Urine Glucose Dipstick: Negative Urine Blood Dipstick: Large Urine Urobilinogen Dipstick: 0.2 EU/dL -- Normal range between ( 0.2 and 1.0 ) Urine Protein Dipstick: 100 Ur Amorph: Trace Ur Bacteria: Trace Ur Squamous Epithelial Cells: 2-5 /HPF Urine Color: Yellow Ur WBC: 0-2 /HPF Urine Ketones Dipstick: Negative Urine pH Dipstick: 5.5 -- Normal range between ( 6.0 and 8.0 ) Urine Bilirubin Dipstick: Negative Urine Specific [place]: 1.012 -- Normal range between ( 1.005 and 1.030 ) Urine Type.: U Cath Microbiology 08/31/18 22:28:00 Catheter Tip Culture: See Result 08/31/18 17:00:00 Wound Culture: See Result 08/30/18 15:54:00 Blood Culture: See Result Blood Bank 09/03/18 02:25:43 TRANSFUSED: TRANSFUSED 09/02/18 20:44:00 RBC Product Ready: Done 09/02/18 20:38:00 # of Units: 2 08/31/18 10:44:00 ABO/Rh: O POS Antibody Screen (Tube): Negative ABSC Crossmatch: Computer XM OK 08/31/18 05:45:00 ABO/Rh Repeat: O POS Urine Chemistry 08/31/18 07:02:00 Creatinine Urine Random: 60 mg/dL Urea Nitrogen Urine Random: 390 mg/dL Sodium Ur Hale: 48 mMole/Liter Uric Acid Urine Random: 38 mg/dL Protein Ur Hale: 209 mg/dL General Chemistry 09/08/18 04:37:00 Creatinine Level: 1.71 mg/dL -- Normal range between ( 0.55 and 1.02 ) Sodium Level: 148 mmol/L -- Normal range between ( 136 and 146 ) Potassium Level: 3.6 mmol/L -- Normal range between ( 3.5 and 5.1 ) Chloride Level: 112 mmol/L -- Normal range between ( 102 and 112 ) Carbon Dioxide Level: 28 mmol/L -- Normal range between ( 21 and 32 ) Anion Gap: 12 -- Normal range between ( 9 and 20 ) Bun/Creatinine: 15.2 -- Normal range between ( 8.0 and 20.0 ) Calcium Level: 8.1 mg/dL -- Normal range between ( 8.5 and 10.1 ) eGFR : 36 mL/min/1.73m2 eGFR NonAfrican: 30 mL/min/1.73m2 Glucose Level: 84 mg/dL -- Normal range between ( 74 and 106 ) Magnesium Level: 1.8 mg/dL -- Normal range between ( 1.5 and 2.4 ) Blood Urea Nitrogen: 26 mg/dL -- Normal range between ( 7 and 22 ) Phosphorus: 3.3 mg/dL -- Normal range between ( 2.3 and 4.9 ) Albumin Level: 2.8 Gram/dL -- Normal range between ( 3.4 and 5.0 ) 09/07/18 04:43:00 Bilirubin Total: 0.5 mg/dL -- Normal range between ( 0.2 and 1.3 ) A/G Ratio: 1.5 -- Normal range between ( 1.1 and 2.5 ) ALT: 9 Units/Liter -- Normal range between ( 12 and 78 ) AST: 10 Units/Liter -- Normal range between ( 5 and 37 ) Globulin: 2.0 Gram/dL -- Normal range between ( 1.5 and 4.5 ) Alk Phos: 60 Units/Liter -- Normal range between ( 27 and 136 ) Protein Total: 5.0 Gram/dL -- Normal range between ( 6.4 and 8.2 ) 09/05/18 04:22:00 CRP: 15.1 mg/dL -- Normal range between ( 0.0 and 0.9 ) 08/30/18 15:54:00 Lactic Acid Level: 1.5 mmol/L -- Normal range between ( 0.4 and 2.0 ) Uric Acid: 7.1 mg/dL -- Normal range between ( 2.6 and 6.0 ) Cardiac Specific Markers 09/05/18 06:05:00 CK: 34 Units/Liter -- Normal range between ( 26 and 192 ) Coagulation 08/30/18 15:54:00 D Dimer Quant: 2200 ng/mL INR: 1.0 -- Normal range between ( 0.9 and 1.1 ) PTT: 40.2 Second(s) -- Normal range between ( 24.5 and 30.1 ) PT: 10.8 Second(s) -- Normal range between ( 9.6 and 11.5 ) Endocrinology 09/02/18 22:15:00 TSH: 5.710 mcInt Units/mL -- Normal range between ( 0.358 and 3.740 ) 08/31/18 07:16:00 PTH Intact: 102.9 pg/mL -- Normal range between ( 18.4 and 80.1 ) 08/30/18 15:54:00 Procalcitonin: <0.05 ng/mL -- Normal range between ( 0.00 and 0.05 ) Iron Studies 09/02/18 22:15:00 % Iron Saturation: 10.6 % -- Normal range between ( 15.0 and 55.0 ) Ferritin Level: 169.0 ng/mL -- Normal range between ( 8.0 and 252.0 ) TIBC: 104.0 mcg/dL -- Normal range between ( 250.0 and 450.0 ) Iron Level: 11 mcg/dL -- Normal range between ( 50 and 170 ) Vitamin Chemistry 09/02/18 22:15:00 Folate Level: 8.75 ng/mL -- Normal range between ( 5.38 and 24.00 ) Vitamin B12 Level: 296 pg/mL -- Normal range between ( 193 and 986 ) 08/31/18 07:16:00 Vitamin D 25 Hydroxy: 13.9 ng/mL -- Normal range between ( 30.0 and 100.0 ) Diagnostic Radiology 08/31/18 17:56:11 CR Knee 1 or 2 Vws LT: CR Knee 1 or 2 Vws LT 08/30/18 18:02:14 CR Chest 1 Vw: CR Chest 1 Vw Ultrasound 08/31/18 09:16:14 US Renal Comp: US Renal Comp 08/31/18 09:12:38 US Veins LE Duplex LTD LT: US Veins LE Duplex LTD LT Echo 09/01/18 09:51:24 EC Echo Complete: EC Echo Complete Specials/Interventional 09/01/18 16:59:30 XA CVC Tunneled WO Pump/Port: XA CVC Tunneled WO Pump/Port Patient Name:TRUDI BLAIR I have received and understand this information and was given the opportunity to ask questions. Patient/Public Defender Name: Patient/Public Defender Signature: Relationship to Patient: Clinician/Hospital Public Defender Signature: Date: Electronically signed by Aleks, [facility] [employer] Tender Cerner at 07/24/2022 3:49 PM CDT documented in this encounter Plan of Treatment Not on file documented as of this encounter Visit Diagnoses Not on filedocumented in this encounter Care Teams Tile Trimmer Relationship Specialty Start Date End Date Romulo Kendall [facility] [address] [facility] [address] [place] [id number] PCP - General Family Medicine 12/25/22 Romulo Kendall MD [address] [facility] [address] [place] [phone] Referring Physician Family Medicine 12/25/22 documented as of this encounter
--- OUTSIDE RECORDS SUMMARY | 2024-03-11 09:21 | XMS_ITS | Encounter Summary ---
Author Organization [employer] Address [address] [place] [address] Care Team Providers Care Irrigation Tax Assessor Collector Name Role Phone Juan José Kendall MD Primary Care Provider + [phone] Juan José Kendall MD Unavailable [phone] Encounter Details Date Type Department Care Team (Late st Contact Info) Description 09/06/2018 Transcribed Document [facility] [place] Family [place] [address] ProviderLaurie MD [address] [place] [address] Social History Tobacco Use Types Packs/Day Years Used Date Smoking Tobacco: Never Assessed Comments Unknown Sex and Gender Information Value Date Recorded Sex Assigned at Not on file Legal Sex Female 2:23 PM CDT Gender Identity Not on file Sexual Orientation Not on file documented as of this encounter Miscellaneous Notes * Cerner Conversion Note - Laurie ProviderMD - 09/06/2018 5:00 AM CDT Chart Check - Review Order Profile Entered On: 09/06/2018 5:51 EDT Performed On: 09/06/2018 5:00 EDT by Skyla Hearn, Rn Chart Check Powerplans Initiated/Discontinued as Appropriate : Yes All Active Orders Reviewed : Yes Skyla Hearn Rn - 09/06/2018 5:51 EDT documented in this encounter Plan of Treatment Not on file documented as of this encounter Visit Diagnoses Not on filedocumented in this encounter Care Teams Irrigation Tax Assessor Collector Relationship Specialty Start Date End Date Juan José Kendall MD [address] [place] [id number] PCP - General Family Medicine 12/25/22 Juan José Kendall MD [address] [place] [id number] Referring Physician Family Medicine 12/25/22 documented as of this encounter
--- OUTSIDE RECORDS SUMMARY | 2024-03-11 09:21 | XMS_ITS | Encounter Summary ---
Author Organization [employer] Address [address] [place] [address] Care Team Providers Care C Architect Name Role Phone Juan José Kendall MD Primary Care Provider + [phone] Juan José Kendall MD Unavailable [phone] Encounter Details Date Type Department Care Team (Late st Contact Info) Description 09/07/2018 Transcribed Document [facility] [place] Family Medicine [facility] [place] [address] ProvideraLurie MD [address] [place] [address] Social History Tobacco Use Types Packs/Day Years Used Date Smoking Tobacco: Never Assessed Comments Unknown Sex and Gender Information Value Date Recorded Sex Assigned at Not on file Legal Sex Female 2:23 PM CDT Gender Identity Not on file Sexual Orientation Not on file documented as of this encounter Miscellaneous Notes * Cerner Conversion Note - Laurie ProviderMD - 09/07/2018 5:00 AM CDT Chart Check - Review Order Profile Entered On: 09/07/2018 16:02 EDT Performed On: 09/07/2018 5:00 EDT by Jennifer Arndt Registered Nurse Chart Check Powerplans Initiated/Discontinued as Appropriate : Yes All Active Orders Reviewed : Yes Jennifer Arndt, Registered Nurse - 09/07/2018 16:02 EDT documented in this encounter Plan of Treatment Not on file documented as of this encounter Visit Diagnoses Not on filedocumented in this encounter Care Teams C Architect Relationship Specialty Start Date End Date Juan José Kendall MD [address] [place] [id number] PCP - General Family Medicine 12/25/22 Juan José Kendall MD [address] [place] [id number] Referring Physician Family Medicine 12/25/22 documented as of this encounter
--- OUTSIDE RECORDS SUMMARY | 2024-03-11 09:21 | XMS_ITS | Encounter Summary ---
Author Organization [employer] Address [address] [place] [address] Care Team Providers Care Display Coordinator Name Role Phone Juan José Kendall MD Primary Care Provider +- [phone] Juan José Kendall MD Unavailable [phone] Encounter Details Date Type Department Care Team (Late st Contact Info) Description 09/07/2018 Transcribed Document [facility] [place] [facility] [place] [address] ProviderLaurie MD [address] [place], [place] [address] Social History Tobacco Use Types Packs/Day Years Used Date Smoking Tobacco: Never Assessed Comments Unknown Sex and Gender Information Value Date Recorded Sex Assigned at Not on file Legal Sex Female 2:23 PM CDT Gender Identity Not on file Sexual Orientation Not on file documented as of this encounter Miscellaneous Notes * Cerner Conversion Note - Laurie ProviderMD - 09/07/2018 10:12 AM CDT UM Authorization Entered On: 09/07/2018 10:14 EDT Performed On: 09/07/2018 10:12 EDT by KELSIE VERDUGO RN-Utilization Review Primary Insurance Authorization Authorization and Policy Numbers : Insurance 1 Health Plan: [employer] Policy Number: Authorization Number: [id number] Insurance 2 Health Plan: MEDICARE Policy Number: [id number] Authorization Number: Insurance Primary Name : Luz [id number] Authorization Status-Primary : Admit approved Reference Number-Primary : [id number] Authorization Number-Primary : [id number] Number of Days Authorized-Primary : 12 Authorized Service Begin Date-Primary : 08/30/2018 EDT Authorized Service End Date-Primary : 09/11/2018 EDT Authorization Comments-Primary : approved per fax back cont stay 7 days nrd 09/12 Historical Authorization Comments-Primary : Comment 1: Call to Luz CHEUNG to obtain fax # for cont stay--clinicals faxed for cont stay via cerner to [phone]. (09/05-09/06/18) (KAZ DIAZ, RN-Utilization Review 09/06/2018 12:23) Comment 2: Per Availity site (referred to different section than normal), inpt admission approved. Auth noted. Will need d/c date called. (Inder Cowan Mkt Phlebotomy Technician-Utilization Mgt 08/31/2018 12:52) KELSIE VERDUGO RN-Utilization Review - 09/07/2018 10:12 EDT Electronically signed by [facility], [facility] Conversion Code Machine Operator Cerner at 07/24/2022 3:40 PM CDT documented in this encounter Plan of Treatment Not on file documented as of this encounter Visit Diagnoses Not on filedocumented in this encounter Care Teams Display Coordinator Relationship Specialty Start Date End Date Juan José Kendall MD [address] [facility] [address] [place] [id number] PCP - General Family Medicine 12/25/22 Juan José Kendall MD [address] [facility] [address] [place] [id number] Referring Physician Family Medicine 12/25/22 documented as of this encounter
--- OUTSIDE RECORDS SUMMARY | 2024-03-11 09:21 | XMS_ITS | Encounter Summary ---
Author Organization [employer] Address [address] [place] [address] Care Team Providers Care Veterinary Medicine Scientist Name Role Phone Juan José Kendall MD Primary Care Provider + [phone] Juan José Kendall MD Unavailable [phone] Encounter Details Date Type Department Care Team (Late st Contact Info) Description 09/08/2018 Transcribed Document [facility] [place] [facility] [place] [address] ProviderLaurie MD [address] [place] [address] Social History Tobacco Use Types Packs/Day Years Used Date Smoking Tobacco: Never Assessed Comments Unknown Sex and Gender Information Value Date Recorded Sex Assigned at Not on file Legal Sex Female 2:23 PM CDT Gender Identity Not on file Sexual Orientation Not on file documented as of this encounter Miscellaneous Notes * Cerner Conversion Note - Laurie ProviderMD - 09/08/2018 9:44 AM CDT Final Discharge Planning Entered On: 09/08/2018 9:45 EDT Performed On: 09/08/2018 9:44 EDT by JAYE MAYFIELD, Care Management-Box Lining Machine Feeder Final Discharge Planning Discharge Arrangements : Patient Post-Acute Information Patient Name: TRUDI BLAIR Gender: Female : [birth year] Age: 63 Years No Post-Acute Placement(s) Listed No Post-Acute Service(s) Listed No Curaspan Referral(s) Listed Transportation Needs : Ambulance Discharge Transportation Arrangement Cmt : ambulance arranged for 4:30 Discharge To Care Management : [id number] JAYE MAYFIELD Care Management-Box Lining Machine Feeder - 09/08/2018 9:44 EDT Final Narrative Note Final Narrative Note : [facility] at [facility] today via ambulance transport at 4:30 JAYE MAYFIELD Care Management-Box Lining Machine Feeder - 09/08/2018 9:44 EDT Electronically signed by [facility], [facility] Conversion Gallery Or Museum Attendant Cerner at 07/24/2022 3:42 PM CDT documented in this encounter Plan of Treatment Not on file documented as of this encounter Visit Diagnoses Not on filedocumented in this encounter Care Teams Veterinary Medicine Scientist Relationship Specialty Start Date End Date Juan José Kendall MD [facility] [address] [place] [id number] PCP - General Family Medicine 12/25/22 Juan José Kendall MD [address] [facility] [address] [place] [phone] Referring Physician Family Medicine 12/25/22 documented as of this encounter
--- OUTSIDE RECORDS SUMMARY | 2024-03-11 09:21 | XMS_ITS | Encounter Summary ---
Author Organization [employer] Address [address] [place] [address] Care Team Providers Care Replanting Machine Crew Name Role Phone Juan José Kendall MD Primary Care Provider +- [phone] Juan José Kendall MD Unavailable [phone] Encounter Details Date Type Department Care Team (Late st Contact Info) Description 09/08/2018 Transcribed Document [facility] [place] [facility] [place] [address] ProviderLaurie MD [address] [place] [id number] Social History Tobacco Use Types Packs/Day Years Used Date Smoking Tobacco: Never Assessed Comments Unknown Sex and Gender Information Value Date Recorded Sex Assigned at Not on file Legal Sex Female 2:23 PM CDT Gender Identity Not on file Sexual Orientation Not on file documented as of this encounter Miscellaneous Notes * Cerner Conversion Note - Historical ProviderMD - 09/08/2018 2:00 AM CDT Biztalk Developer Details Entered On: 09/08/2018 2:27 EDT Performed On: 09/08/2018 2:00 EDT by Geena De La Garza, RN Order Details Transport Mode Order Detail : Bed (including specialty) Isolation Precautions Order Detail : Contact precautions Order Detail : 0 IV Order Detail : 0 Oxygen Order Detail : 0 Nurse Collect Order Detail : 0 Lift/Transfer : Maximal assist Central Line Order Detail : Yes Room Service : Not Appropriate Arterial Line : No Geena De La Garza, RN - 09/08/2018 2:27 EDT documented in this encounter Plan of Treatment Not on file documented as of this encounter Visit Diagnoses Not on filedocumented in this encounter Care Teams Replanting Machine Crew Relationship Specialty Start Date End Date Juan José Kendall MD [address] [facility] [address] [place] [id number] PCP - General Family Medicine 12/25/22 Juan José Kendall MD [address] [facility] [address] [place] [phone] Referring Physician Family Medicine 12/25/22 documented as of this encounter
--- OUTSIDE RECORDS SUMMARY | 2024-03-11 09:21 | XMS_ITS | Encounter Summary ---
Author Organization [employer] Address [address] [place] [address] Care Team Providers Care Environmental Planner Name Role Phone Juan José Kendall MD Primary Care Provider + [phone] Juan José Kendall MD Unavailable [phone] Encounter Details Date Type Department Care Team (Late st Contact Info) Description 09/08/2018 Transcribed Document [facility] [place] Family Medicine [facility] [place] [address] ProviderLaurie MD [address] [place], [place] [id number] Social History Tobacco Use Types Packs/Day Years Used Date Smoking Tobacco: Never Assessed Comments Unknown Sex and Gender Information Value Date Recorded Sex Assigned at Not on file Legal Sex Female 2:23 PM CDT Gender Identity Not on file Sexual Orientation Not on file documented as of this encounter Miscellaneous Notes * Cerner Conversion Note - Historical ProviderMD - 09/08/2018 5:00 PM CDT Event Note Entered On: 09/08/2018 17:29 EDT Performed On: 09/08/2018 17:00 EDT by Janae Alonso Rn Event Note Event Date/Time : 09/08/2018 17:00 EDT Description of Event : Jasmyne at [facility] called and report and pt assessment given. EMS to arrive anytime for pt to be transferred. Wound vac to be sent with pt, I spoke with CHRISTOPHER Corbett RN and he approved that it be transferred with pt. Janae Alonso Rn - 09/08/2018 17:28 EDT documented in this encounter Plan of Treatment Not on file documented as of this encounter Visit Diagnoses Not on filedocumented in this encounter Care Teams Environmental Planner Relationship Specialty Start Date End Date Juan José Kendall MD [address] [facility] [address] [place] [phone] PCP - General Family Medicine 12/25/22 Juan José Kendall MD [address] [facility] [address] [place] [phone] Referring Physician Family Medicine 12/25/22 documented as of this encounter
--- OUTSIDE RECORDS SUMMARY | 2024-03-11 09:21 | XMS_ITS | Encounter Summary ---
Author Organization [employer] Address [address] [place] [address] Care Team Providers Care Professor Of Biochemistry Name Role Phone Juan José Kendall MD Primary Care Provider + [phone] Juan José Kendall MD Unavailable [phone] Encounter Details Date Type Department Care Team (Late st Contact Info) Description 09/07/2018 Transcribed Document [facility] [place] [address] ProviderLaurie MD [address] [place] [id number] Social History Tobacco Use Types Packs/Day Years Used Date Smoking Tobacco: Never Assessed Comments Unknown Sex and Gender Information Value Date Recorded Sex Assigned at Not on file Legal Sex Female 2:23 PM CDT Gender Identity Not on file Sexual Orientation Not on file documented as of this encounter Miscellaneous Notes * Cerner Conversion Note - Laurie ProviderMD - 09/07/2018 10:42 AM CDT On Going Discharge Planning Entered On: 09/07/2018 10:44 EDT Performed On: 09/07/2018 10:42 EDT by JAYE MAYFIELD Care Management-Senior Staff Psychologist Care Management Progress Note Discharge Arrangements : Patient Post-Acute Information Patient Name: TRUDI BLAIR Gender: Female : [birth year] Age: 63 Years No Post-Acute Placement(s) Listed No Post-Acute Service(s) Listed No Curaspan Referral(s) Listed Discharge Options Discussed with Patient : Acute rehabilitation, Short term rehabilitation Barriers to Discharge Identified : Insurance authorization pending Certification for Post-Acute Care Initiated : 09/06/2018 EDT JAYE MAYFIELD, Care Management-Senior Staff Psychologist - 09/07/2018 10:42 EDT Electronically signed by [facility] Conversion Social Services Analyst Cerner at 07/24/2022 3:57 PM CDT documented in this encounter Plan of Treatment Not on file documented as of this encounter Visit Diagnoses Not on filedocumented in this encounter Care Teams Professor Of Biochemistry Relationship Specialty Start Date End Date Juan José Kendall MD [address] [facility] [address] [place] [id number] PCP - General Family Medicine 12/25/22 Juan José Kendall MD [address] [facility] [address] [place] [id number] Referring Physician Family Medicine 12/25/22 documented as of this encounter
--- OUTSIDE RECORDS SUMMARY | 2024-03-11 09:21 | XMS_ITS | Encounter Summary ---
Author Organization [employer] [facility] [employer] Address [address] [place] [address] Care Team Providers Care Warehouse Production Worker Name Role Phone Juan José Kendall MD Primary Care Provider +- [phone] Juan José Kendall MD Unavailable [phone] Encounter Details Date Type Department Care Team (Late st Contact Info) Description 09/06/2018 Transcribed Document [facility] Family Medicine [facility] [address] ProviderLaurie MD [address] [place] [id number] Social History Tobacco Use Types Packs/Day Years Used Date Smoking Tobacco: Never Assessed Comments Unknown Sex and Gender Information Value Date Recorded Sex Assigned at Not on file Legal Sex Female 2:23 PM CDT Gender Identity Not on file Sexual Orientation Not on file documented as of this encounter Miscellaneous Notes * Cerner Conversion Note - Laurie ProviderMD - 09/06/2018 6:20 PM CDT Patient: TRUDI BLAIR Age: 63 years Sex: Female : 1955 Associated Diagnoses: Sepsis; Left prosthetic knee infection; Enterococcus UTI (urinary tract infection); HTN (hypertension); Hypercholesterolemia; GERD (gastroesophageal reflux disease); History of obstructive sleep apnea; At risk for sleep apnea; Stress incontinence; MRSA and Enterobacter bacteremia; Wound infection after surgery ,Left Knee; PILY (acute kidney injury); Anemia; Left posterior tibial vein thrombosis; Status post left total knee arthroplasty prosthesis explantation and spacer was on antibiotic placement; Hypoalbuminemia; Metabolic acidosis Author: JONES HIDALGO MD-INT Basic Information awake alert comfortable, asympt. , pain under control, ???Complaining of nausea but no vomiting ???Slow progressive improvement of renal function Review of Systems [...] Reaction Biaxin Acid reflux Current medications: Medications (41) Active Scheduled: (13) #NaCl 0.9% *FLUSH* inj 10 mL 10 mL, IV Push, Q12H acetaminophen 500 mg tab 500 mg 1 Tab, Oral, Q6HInt albumin human 25% 25 Gram 100 mL, IV Piggyback, Q6H ammonium lact 12% lot 225 g 1 Application, Topical, BID DAPTOmycin + NaCl 0.9% 50 mL 700 mg 14 mL, IV Piggyback, [id number] docusate sodium 100 mg cap 100 mg 1 Cap, Oral, BID heparin 5,000 units/1 mL inj 5,000 Units 1 mL, SubCutaneous, TID metoclopramide 10 mg tab 10 mg 1 Tab, Oral, BID metoprolol tartrate 25 mg tab 25 mg 1 Tab, Oral, Daily pantoprazole EC 40 mg tab 40 mg 1 Tab, Oral, Daily simvaSTATin 20 mg tab 40 mg 2 Tab, Oral, At Bedtime sod ferric gluc cmplx 250 mg 20 mL, IV Piggyback, Daily topiramate 25 mg sprinkle cap 25 mg 1 Cap, Oral, BID Continuous: (0) PRN: (28) #NaCl 0.9% *FLUSH* inj 3 mL 5 mL, IntraVENous, See Comment acetaminophen 325 mg tab 650 mg 2 Tab, Oral, Q4H acetaminophen/HYDROcodone 325/5 mg tab 1 Tab, Oral, Q4H acetaminophen/HYDROcodone 325/5 mg tab [...] tab 0.1 mg 1 Tab, Oral, Q4H HYDROmorphone 1 mg/1 mL inj 0.5 mg 0.5 mL, IV Push, Q3H magnesium hydroxide 8% liq 30 mL 30 mL, Oral, Daily magnesium sulfate 2 Gram 50 mL, IV Piggyback, Daily magnesium sulfate 2 Gram 50 mL, IV Piggyback, Q2H metoclopramide 10 mg/2 mL inj 5 mg 1 mL, IV Push, Q6H ondansetron 4 mg tab 4 mg 1 Tab, Oral, Q6H ondansetron 4 mg/2 mL inj 4 mg 2 mL, IV Push, Q4H oxyCODONE 5 mg tab 10 mg 2 Tab, Oral, Q4H potassium chloride 10 mEq 100 mL, IV Piggyback, Q1H potassium chloride 40 mEq/30 mL liq 20 mEq 15 mL, Feeding Tube, Q2H potassium chloride 40 mEq/30 mL liq 60 mEq 45 mL, Feeding Tube, Q2H potassium chloride CR 20 mEq tab 20 mEq 1 Tab, Oral, Q2H potassium chloride CR 20 mEq tab 60 mEq 3 Tab, Oral, Q2H scopolamine 1.5 mg/72 hr patch 1 Patch, TransDermal, Q3Days sodium phosphate 15 mMole 5 mL, IV Piggyback, Daily sodium phosphate 15 mMole 5 mL, IV Piggyback, Q6H temazepam 15 mg cap 15 mg 1 Cap, Oral, At Bedtime traZODone 50 mg tab 50 mg 1 Tab, Oral, At Bedtime Problem list: Active Problems (8) Arthritis At risk for sleep apnea Back pain GERD (gastroesophageal reflux disease) High cholesterol History of obstructive sleep apnea HTN (hypertension) Stress incontinence Physical Examination VS/Measurements Vital Measurements 09/06/2018 11:00 EDT Temperature Source Oral Temperature Mode Fahrenheit Temperature, Fahrenheit 97.9 Deg F Clinical Temperature, C 36.6 Deg C Heart Rate Monitored 65 bpm Respiratory Rate 16 Breaths/Min Blood Pressure Location Arm, right upper Blood Pressure Source Non-Invasive BP Device Blood Pressure Position Side, Left Systolic Blood Pressure 148 mmHg HI Diastolic Blood Pressure 76 mmHg Mean Arterial Pressure (MAP)-BMDI 93 Oxygen Saturation 93 % LOW General: Alert [...] Review / Management Results review: All Results 09/06/2018 5:39 EDT Sodium Level 146 mmol/L Potassium Level 3.3 mmol/L LOW Chloride Level 112 mmol/L Carbon Dioxide Level 27 mmol/L Anion Gap 10 Glucose Level 86 mg/dL Blood Urea Nitrogen 24 mg/dL HI Creatinine Level 1.79 mg/dL HI eGFR 35 mL/min/1.73m2 LOW eGFR NonAfrican 29 mL/min/1.73m2 LOW Bun/Creatinine 13.4 Calcium Level 7.9 mg/dL LOW Protein Total 4.5 Gram/dL LOW Albumin Level 2.3 Gram/dL LOW Globulin 2.2 Gram/dL A/G Ratio 1.0 LOW Bilirubin Total 0.4 mg/dL Alk Phos 62 Units/Liter AST 12 Units/Liter ALT 11 Units/Liter LOW WBC 7.2 K/uL RBC 2.67 Million/uL LOW Hgb 7.7 Gram/dL LOW Hct 24.8 % LOW MCV 92.9 fL MCH 28.8 pg MCHC 31.0 Gram/dL LOW Platelet Count 280 K/uL MPV 10.6 fL RDW 16.4 % HI Neut % 60.5 % Neut # 4.34 K/uL Lymph % 18.2 % LOW Lymph # 1.31 K/uL [place] % 10.3 % [place] # 0.74 K/uL Eos % 8.8 % HI Eos # 0.63 K/uL HI Baso % 0.7 % Baso # 0.05 K/uL Slide Review No IG# 0 x10(3)/uL IG% 2 % HI 09/05/2018 4:22 EDT Sodium Level 143 mmol/L Potassium Level 3.2 mmol/L LOW Chloride Level 111 mmol/L Carbon Dioxide Level 23 mmol/L Anion Gap 12 Glucose Level 91 mg/dL Blood Urea Nitrogen 26 mg/dL HI Creatinine Level 1.87 mg/dL HI eGFR 33 mL/min/1.73m2 LOW eGFR NonAfrican 27 mL/min/1.73m2 LOW Bun/Creatinine 13.9 Calcium Level 7.7 mg/dL LOW Protein Total 4.6 Gram/dL LOW Albumin Level 2.3 Gram/dL LOW Globulin 2.3 Gram/dL A/G Ratio 1.0 LOW Bilirubin Total 0.5 mg/dL Alk Phos 60 Units/Liter AST 9 Units/Liter ALT 10 Units/Liter LOW Magnesium Level 1.9 mg/dL Phosphorus 3.4 mg/dL CRP 15.1 mg/dL HI WBC 6.6 K/uL RBC 2.71 Million/uL LOW Hgb 7.8 Gram/dL LOW Hct 24.9 % LOW MCV 91.9 fL MCH 28.8 pg MCHC 31.3 Gram/dL LOW Platelet Count 222 K/uL MPV 10.7 fL RDW 16.3 % HI Neut % 60.1 % Neut # 3.99 K/uL Lymph % 18.9 % LOW Lymph # 1.26 K/uL [place] % 10.2 % [place] # 0.68 K/uL Eos % 9.3 % HI Eos # 0.62 K/uL HI Baso % 0.6 % Baso # 0.04 K/uL Sed Rate Auto 8 mm/Hr Slide Review No IG# 0 x10(3)/uL IG% 1 % . Impression and Plan Diagnosis Sepsis - Admitting, Medical. Left prosthetic knee infection - Admitting, Medical. Enterococcus UTI (urinary tract infection) - Admitting, Medical. HTN (hypertension) - Admitting, Medical. Hypercholesterolemia - Admitting, Medical. GERD (gastroesophageal reflux disease) - Admitting, Medical. History of obstructive sleep apnea - Admitting, Medical. At risk for sleep apnea - Admitting, Medical. Stress incontinence - Admitting, Medical. MRSA and Enterobacter bacteremia - Admitting, Medical. Wound infection after surgery ,Left Knee - Admitting, Medical. PILY (acute kidney injury) - Admitting, Medical. Anemia - Admitting, Medical. Left posterior tibial vein thrombosis - Admitting, Medical. Status post left total knee arthroplasty prosthesis explantation and spacer was on antibiotic placement - Admitting, Medical. Hypoalbuminemia - Working, Medical. Metabolic acidosis - Admitting, Medical. Course: Plan/ cont. current care, pt/ot, encourage oral fluid intake, nutritional support, encourage use of respirometer, motoring blood pressure, renal function, blood glucose, and urine output. -Continue on IV antibiotics as recommended by infectious disease -Pain control -DVT prophylaxis -Close monitoring fluid and electrolytes -When necessary nebs -Fall risk precautions -Sleep apnea precautions -Stress ulcer prophylaxis -Discussed with Dr. Guerrero for long-term plan which is either amputation versus fusion. Orders Order Profile (Selected) Inpatient Orders Ordered (Scheduled) CBC w/ Auto Diff: Specimen Type: Blood, AM Draw collect, 09/07/18 4:00:00 EDT, 1-Time, Stop: 09/07/18 4:00:00 EDT, Lab Collect CMP Comprehensive Metabolic Panel: Specimen Type: Blood, AM Draw collect, 09/07/18 4:00:00 EDT, 1-Time, Stop: 09/07/18 4:00:00 EDT, Lab Collect. documented in this encounter Plan of Treatment Not on file documented as of this encounter Visit Diagnoses Not on filedocumented in this encounter Care Teams Warehouse Production Worker Relationship Specialty Start Date End Date Juan José Kendall MD [address] [place] [facility] [address] [place] [address] PCP - General Family Medicine 12/25/22 Juan José Kendall MD [address] [place] [facility] [address] [place] [id number] Referring Physician Family Medicine 12/25/22 documented as of this encounter
--- OUTSIDE RECORDS SUMMARY | 2024-03-11 09:21 | XMS_ITS | Encounter Summary ---
Author Organization [employer] Address [address] [place] [address] Care Team Providers Care Dimpling Machine Operator Name Role Phone Juan José Kendall MD Primary Care Provider + [phone] Juan José Kendall MD Unavailable [phone] Encounter Details Date Type Department Care Team (Late st Contact Info) Description 09/06/2018 Transcribed Document [facility] Family Medicine Counts include 234 beds at the [facility] [place] [address] ProviderLaurie MD [address] [place] [id number] Social History Tobacco Use Types Packs/Day Years Used Date Smoking Tobacco: Never Assessed Comments Unknown Sex and Gender Information Value Date Recorded Sex Assigned at Not on file Legal Sex Female 2:23 PM CDT Gender Identity Not on file Sexual Orientation Not on file documented as of this encounter Miscellaneous Notes * Cerner Conversion Note - Laurie ProviderMD - 09/06/2018 8:32 AM CDT On Going Discharge Planning Entered On: 09/06/2018 8:32 EDT Performed On: 09/06/2018 8:32 EDT by JAYE MAYFIELD Care Management-Cloth Booker Care Management Progress Note Discharge Arrangements : Patient Post-Acute Information Patient Name: TRUDI BLAIR Gender: Female : [birth year] Age: 63 Years No Post-Acute Placement(s) Listed No Post-Acute Service(s) Listed No [place] Referral(s) Listed Discharge Options Discussed with Patient : Acute rehabilitation, Short term rehabilitation JAYE MAYFIELD Care Management-Cloth Booker - 09/06/2018 8:32 EDT Narrative Progress Note Narrative Progress Note : REFERRAL MADE TO LTAC JAYE MAYFIELD Care Management-Cloth Booker - 09/06/2018 8:32 EDT Electronically signed by [facility] Conversion Ultrasound Technician Cerner at 07/24/2022 3:47 PM CDT documented in this encounter Plan of Treatment Not on file documented as of this encounter Visit Diagnoses Not on filedocumented in this encounter Care Teams Dimpling Machine Operator Relationship Specialty Start Date End Date Juan José Kendall MD [address] [facility] [address] [place] [address] PCP - General Family Medicine 12/25/22 Juan José Kendall MD [address] [place] [facility] [address] [place] [phone] Referring Physician Family Medicine 12/25/22 documented as of this encounter
--- OUTSIDE RECORDS SUMMARY | 2024-03-11 09:21 | XMS_ITS | Encounter Summary ---
Author Organization [employer] Address [address] [place] [address] Care Team Providers Care Field Test Engineer Name Role Phone Juan José Kendall MD Primary Care Provider +- [phone] Juan José Kendall MD Unavailable [phone] Encounter Details Date Type Department Care Team (Late st Contact Info) Description 09/08/2018 Transcribed Document [facility] [place] [facility] [place] [address] ProviderLaurie MD [address] [place] [address] Social History Tobacco Use Types Packs/Day Years Used Date Smoking Tobacco: Never Assessed Comments Unknown Sex and Gender Information Value Date Recorded Sex Assigned at Not on file Legal Sex Female 2:23 PM CDT Gender Identity Not on file Sexual Orientation Not on file documented as of this encounter Miscellaneous Notes * Cerner Conversion Note - Historical ProviderMD - 09/08/2018 6:19 PM CDT Admission History, Adult Entered On: 09/08/2018 18:45 EDT Performed On: 09/08/2018 18:19 EDT by Renate Wilson RN Advance Directive Patient has Advance Directive *Q : Yes, Advance Directive with the patient Advance Directive Type : Living will Copy Advance Directive Verified/on Chart : No Renate Wilson RN - 09/08/2018 18:31 EDT Anesthesia/Transfusion History Family History of Anesthesia Reaction : Prior transfusion without reaction Transfusion History : Prior anesthesia reaction Type of Anesthesia Reaction : Excessive somnolence Family History of Anesthesia Reaction : None Renate Wilson RN - 09/08/2018 18:31 EDT Functional Assessment Living Situation : Home Patient Lives With : Spouse Current Home Treatments : None Renate Wilson RN - 09/08/2018 18:31 EDT General Info Want Family/Rep/Phys Notified of Admit : No Emergency Contact #1 : mauricio blair Emergency Contact #1 Emergency Contact #1 Relationship : Emergency Contact #2 : francy don Emergency Contact #2 Emergency Contact #2 Relationship : son Primary Language : Dominican Preferred Communication Mode : Verbal Communication Barrier : None Renate Wilson RN - 09/08/2018 18:31 EDT Fall Risk Scales ABCs Fall Injury Risk Identification : Bones, Coagulation ABC Fall Injury Risk : Moderate to high injury risk MET[place]F Hx Falls Immediate/Within 3 Months : No [place] Secondary Diagnosis : Yes MET[place]F Use of Ambulatory Aid : Bed rest/Nurse assist [place] IV Therapy or IV Access : Yes Brittany Gait/Transferring : Normal, bedrest, immobile [place]f Mental Status : Oriented to own ability [place] Fall Risk Score : 35 MET[place]F Fall Scale Risk Level : 25-45 Medium Risk [place] Fall Interventions : Adequate lighting, Assistive devices within reach, Bed in low position, Call device within reach, Hourly comfort/safety rounds, Non-slip footwear, Personal items within reach, Room free of clutter/spills, Upper side-rails up, Wheels locked Renate Wilson RN - 09/08/2018 18:31 EDT Health Histories Smoking Status : Never (less than 100 in lifetime; none in last 30 days) Smokeless Tobacco Status : Never Renate Wilson RN - 09/08/2018 18:31 EDT Social History (As Of: 09/08/2018 18:45:55 EDT) Tobacco: Never (less than 100 in lifetime) Smoking Status. Never Smokeless Tobacco Status. (Last Updated: 06/23/2018 15:46:55 EDT by RASHEL BARRAZA, RN) Alcohol: Alcohol Use History No. (Last Updated: 06/23/2018 15:46:55 EDT by RASHEL BARRAZA, RN) Substance Abuse: Drug Use Hx: No. (Last Updated: 06/23/2018 15:46:55 EDT by RASHEL BARRAZA RN) Height and Weight, Clinical Dosing Height Source : Stated Height Entry Format : [place] Height, Feet : 5 ft(Converted to: 152 cm, 60 Inch) Height, Inches : 6 Inch(Converted to: 0 ft 6 Inch, 15.24 cm) Clinical Height : 167.64 cm Weight Source : Bed scale Weight Entry Format : [place] Clinical Dosing Weight : 139.55 kg Weight, Pounds : 307 lb Weight, Ounces : 0 oz Body Surface Area (BSA) : 2.4 m2 Body Mass Index : 49.7 kg/m2 (>HHI) [place] Body Weight : 59 kg Renate Wilson RN - 09/08/2018 18:31 EDT Infectious Disease History Infectious Disease History : Chicken pox/Shingles, Influenza, Measles, Mononucleosis, MRSA, Mumps Isolation Needed : Contact Fever/Chills Last 48 Hours : No Travel To Regions with Travel Advisories : No Travel Outside [place] Within Last 30 Days : No Contact With Traveler to Advisory Region : No Tuberculosis Symptoms : None Renate Wilson RN - 09/08/2018 18:31 EDT Tetanus Immunization Status Previous Tetanus Immunizations : No qualifying data available. Renate Wilson RN - 09/08/2018 18:31 EDT Influenza Vaccine Asmt, Adult Previous Vaccines from Immunization Schedule : No qualifying data available. Influenza Immunization, Current Season : Yes Renate Wilson RN - 09/08/2018 18:31 EDT Pneumococcal Vaccine Previous Vaccines from Immunization Schedule : No qualifying data available. Pneumonia Immunization Received : No Pneumococcal Risk Assessment < Age 65 : Chronic cardiovascular disease (e.g. HF, cardiomyopathies, heterotaxy), Chronic pulmonary disease (e.g., COPD, emphysema, asthma) Pneumococcal Vaccine Contraindications : No contraindications to pneumococcal vaccine Transplant Workup/Recent Transplant : No Order for Pneumococcal Vaccine : Declined Vaccination Renate Wilson RN - 09/08/2018 18:31 EDT Nutrition History Adaptive Feeding Equipment : Regular Oral Medication Administration : By mouth Eating Poorly Due to Decreased Appetite : Yes Unplanned Weight Loss in Past 3-6 Months : No Malnutrition Screening Tool Total(mal) : 1 Malnutrition Screening Tool Risk Level : Patient not at risk Renate Wilson RN - 09/08/2018 18:31 EDT Psychosocial History Chronic/Terminal Illness w/Freq Visits : No Do You Have a History of the Following? : Patient denies history Currently in Unsafe Situation : No Tried to Harm Yourself in the Past? : No Thoughts of Harming/Killing Yourself : No Renate Wilson RN - 09/08/2018 18:31 EDT Sleep Apnea Risk Assmt Hx of Obstructive Sleep Apnea Diagnosis : No Snore Loudly : Yes Tired, Fatigued, or Sleepy During Day : Yes Observed Stopping Breathing During Sleep : No Have/Are Being Treated for Hypertension : Yes BMI Greater Than 35 kg/m2 : Yes Age over 50 Years Old : Yes Neck Circumference Greater Than 40 cm : Yes Gender Male : No STOP-BANG Sleep Apnea Risk Level Score : 6 Renate Wilson RN - 09/08/2018 18:31 EDT Valuables and Belongings Valuables and Belongings : Personal devices Personal Device Disposition : Bedside, With patient Personal Devices : Glasses Renate Wilson RN - 09/08/2018 18:31 EDT Electronically signed by [facility] Conversion Instrument Mechanic Cerner at 07/24/2022 3:45 PM CDT documented in this encounter Plan of Treatment Not on file documented as of this encounter Visit Diagnoses Not on filedocumented in this encounter Care Teams Field Test Engineer Relationship Specialty Start Date End [...]
--- OUTSIDE RECORDS SUMMARY | 2024-03-11 09:21 | XMS_ITS | Encounter Summary ---
Author Organization [employer] Address [address] [place] [address] Care Team Providers Care Door Glass Installer Name Role Phone Juan José Kendall MD Primary Care Provider +- [phone] Juan José Kendall MD Unavailable [phone] Encounter Details Date Type Department Care Team (Late st Contact Info) Description 09/07/2018 Transcribed Document [facility] [place] [facility] [place] [address] Laurie Garcia MD [address] [place] [id number] Social History Tobacco Use Types Packs/Day Years Used Date Smoking Tobacco: Never Assessed Comments Unknown Sex and Gender Information Value Date Recorded Sex Assigned at Not on file Legal Sex Female 2:23 PM CDT Gender Identity Not on file Sexual Orientation Not on file documented as of this encounter Miscellaneous Notes * Cerner Conversion Note - Laurie Garcia MD - 09/07/2018 3:37 PM CDT Patient: TRUDI BLAIR Age: 63 [...] HIDALGO MD-INT Basic Information awake alert comfortable, ???Has diarrhea ???Hypokalemia ???Kidney functions are stable for now ???Started on probiotics Review of Systems Constitutional: No fever, No [...] Reaction Biaxin Acid reflux Current medications: Medications (43) Active Scheduled: (15) #NaCl 0.9% *FLUSH* inj 10 mL 10 mL, IV Push, Q12H acetaminophen 500 mg tab 500 mg 1 Tab, Oral, Q6HInt ammonium lact 12% lot 225 g 1 Application, Topical, BID collagenase 250 unit/1 g oint 2 g 1 Application, Topical, Daily DAPTOmycin + NaCl 0.9% 50 mL 700 mg 14 mL, IV Piggyback, [id number] docusate sodium 100 mg cap 100 mg 1 Cap, Oral, BID heparin 5,000 units/1 mL inj 5,000 Units 1 mL, SubCutaneous, TID metoclopramide 10 mg tab 10 mg 1 Tab, Oral, BID metoprolol tartrate 25 mg tab 25 mg 1 Tab, Oral, Daily pantoprazole EC 40 mg tab 40 mg 1 Tab, Oral, Daily potassium chloride CR 20 mEq tab 40 mEq 2 Tab, Oral, BID saccharomyces boulardii 250 mg cap 250 mg 1 Cap, Oral, Daily simvaSTATin 20 mg tab 40 [...] Stress incontinence Physical Examination VS/Measurements Vital Measurements 09/07/2018 14:09 EDT Temperature Source Oral Temperature Mode Fahrenheit Temperature, Fahrenheit 98.1 Deg F Heart Rate Monitored 62 bpm Respiratory Rate 16 Breaths/Min Blood Pressure Location Arm, left lower Blood Pressure Source Non-Invasive BP Device Blood Pressure Position Supine Systolic Blood Pressure 128 mmHg Diastolic Blood Pressure 57 mmHg LOW Oxygen Saturation 96 % Oxygen Therapy Mode Room air 09/07/2018 10:23 EDT Temperature Source Oral Temperature Mode Fahrenheit Temperature, Fahrenheit 98.1 Deg F Clinical Temperature, C 36.7 Deg C Heart Rate Monitored 78 bpm Respiratory Rate 16 Breaths/Min Blood Pressure Location Arm, left lower Blood Pressure Source Non-Invasive BP Device Blood Pressure Position Sitting Systolic Blood Pressure 139 mmHg Diastolic Blood Pressure 61 mmHg Mean Arterial Pressure (MAP)-BMDI 78 Oxygen Saturation 97 % Oxygen Therapy Mode Room air General: [...] Review / Management Results review: All Results 09/07/2018 4:43 EDT Sodium Level 145 mmol/L Potassium Level 3.0 mmol/L LOW Chloride Level 111 mmol/L Carbon Dioxide Level 27 mmol/L Anion Gap 10 Glucose Level 86 mg/dL Blood Urea Nitrogen 29 mg/dL HI Creatinine Level 1.76 mg/dL HI eGFR 35 mL/min/1.73m2 LOW eGFR NonAfrican 29 mL/min/1.73m2 LOW Bun/Creatinine 16.5 Calcium Level 8.2 mg/dL LOW Protein Total 5.0 Gram/dL LOW Albumin Level 3.0 Gram/dL LOW Globulin 2.0 Gram/dL A/G Ratio 1.5 Bilirubin Total 0.5 mg/dL Alk Phos 60 Units/Liter AST 10 Units/Liter ALT 9 Units/Liter LOW WBC 6.4 K/uL RBC 2.56 Million/uL LOW Hgb 7.5 Gram/dL LOW Hct 23.8 % LOW MCV 93.0 fL MCH 29.3 pg MCHC 31.5 Gram/dL LOW Platelet Count 267 K/uL MPV 10.2 fL RDW 16.6 % HI Neut % 61.8 % Neut # 3.94 K/uL Lymph % 19.2 % LOW Lymph # 1.22 K/uL [place] % 9.1 % [place] # 0.58 K/uL Eos % 7.2 % HI Eos # 0.46 K/uL Baso % 0.8 % Baso # 0.05 K/uL Slide Review No IG# 0 x10(3)/uL IG% 2 % HI 09/06/2018 5:39 EDT Sodium Level 146 mmol/L [...] 18.2 % LOW Lymph # 1.31 K/uL [place] % 10.3 % [place] # 0.74 K/uL Eos % 8.8 % HI Eos # 0.63 K/uL HI Baso % 0.7 % Baso # 0.05 K/uL Slide Review No IG# 0 x10(3)/uL IG% 2 % HI . Condition: Stable. Impression and Plan Diagnosis Sepsis - Admitting, [...] IV antibiotics as recommended by infectious disease -Close monitoring fluid and electrolytes -Electrolytes replacement -Continue on probiotics -Imodium 2 by mouth after each loose stool -Fall risk precautions -Sleep apnea precautions -DVT prophylaxis -Anticipate his ulcer prophylaxis. documented in this encounter Plan of Treatment Not on file documented as of this encounter Visit Diagnoses Not on filedocumented in this encounter Care Teams Door Glass Installer Relationship Specialty Start Date End Date Juan José Kendall MD [address] [place] [facility] [address] [place] [address] PCP - General Family Medicine 12/25/22 Juan José Kendall MD [address] [place] [address] [place] [address] Referring Physician Family Medicine 12/25/22 documented as of this encounter
--- OUTSIDE RECORDS SUMMARY | 2024-03-11 09:21 | XMS_ITS | Encounter Summary ---
Author Organization [employer] Address [address] [place] [address] Care Team Providers Care Diesel Engine Inspector Name Role Phone Juan José Kendall MD Primary Care Provider +- [phone] Juan José Kendall MD Unavailable [phone] Encounter Details Date Type Department Care Team (Late st Contact Info) Description 09/08/2018 Transcribed Document [facility] [place] [address] ProviderLaurie MD [address] [place] [id number] Social History Tobacco Use Types Packs/Day Years Used Date Smoking Tobacco: Never Assessed Comments Unknown Sex and Gender Information Value Date Recorded Sex Assigned at Not on file Legal Sex Female 2:23 PM CDT Gender Identity Not on file Sexual Orientation Not on file documented as of this encounter Miscellaneous Notes * Cerner Conversion Note - Laurie ProviderMD - 09/08/2018 8:46 AM CDT Patient: TRUDI BLAIR Age: 63 years Sex: Female : 1955 Associated Diagnoses: None Author: LINDA MARQUEZ MD-ISAAK Subjective stable overnight. Objective VS/Measurements Vitals Signs (last 24 hrs) Last Charted Minimum Maximum Temp 98.0 (SEP 08 06:00) 98 (SEP 07 18:22) 98.1 (SEP 07 10:23) Apical HR 68 (EDGARD 05 09:41) 68 (SEP 05 09:41) 68 (SEP 05 09:41) Mon HR 71 (SEP 06 06:00) 62 (EDGARD 05 14:09) 81 (SEP 05 18:22) Resp Rate 14 (SEP 06 06:00) 14 (SEP 06 06:00) 16 (SEP 05 10:23) SBP H 142 (SEP 06 06:00) 120 (SEP 05 18:22) H 142 (SEP 06 06:00) DBP 66 (SEP 06 06:00) L 49 (SEP 05 18:22) 66 (SEP 06 06:00) MAP 85 (SEP 06 06:00) 73 (SEP 06 02:47) 85 (SEP 08 06:00) SpO2 L 93 (SEP 08 06:00) L 92 (SEP 08 02:47) 98 (SEP 07 18:22) Intake & Output Totals Last 24 Hours (7a-7a) Intake (14 Events) Medications (455 mL) Oral Intake (1610 mL) Supplement Amount Consumed (240 mL) Output (3 Events) Parekh Catheter (1900 mL) Input Total: 2305 mL Output Total: 1900 mL Balance: 405 mL General: No acute distress, WDWF. Respiratory: Respirations are non-labored. Cardiovascular: + ansarca. Gastrointestinal: Soft, Non-distended, obese. Genitourinary: + parekh. Integumentary: Warm, Dry, No rash. Neurologic: Alert, Oriented. Psychiatric: Cooperative, Appropriate mood & affect. Results Review Labs (Last four charted values) WBC 7.0 (SEP 06) 6.4 (EDGARD 05) 7.2 (EDGARD 04) 6.6 (EDGARD 03) HB L 7.6 (EDGARD 06) L 7.5 (EDGARD 05) L 7.7 (EDGARD 04) L 7.8 (EDGARD 03) HCT L 25.1 (EDGARD 06) L 23.8 (EDGARD 05) L 24.8 (EDGARD 04) L 24.9 (EDGARD 03) Plt 287 (EDGARD 06) 267 (EDGARD 05) 280 (EDGARD 04) 222 (EDGARD 03) Na H 148 (EDGARD 06) 145 (EDGARD 05) 146 (EDGARD 04) 143 (EDGARD 03) K 3.6 (EDGARD 06) L 3.0 (EDGARD 05) L 3.3 (EDGARD 04) L 3.2 (EDGARD 03) Cl 112 (SEP 06) 111 (SEP 05) 112 (SEP 04) 111 (SEP 03) CO2 28 (SEP 06) 27 (SEP 05) 27 (SEP 04) 23 (SEP 03) BUN H 26 (SEP 06) H 29 (EDGARD 05) H 24 (SEP 04) H 26 (SEP 03) Cr H 1.71 (EDGARD 06) H 1.76 (EDGARD 05) H 1.79 (SEP 04) H 1.87 (SEP 03) Glu R 84 (SEP 06) 86 (SEP 05) 86 (SEP 04) 91 (SEP 03) Ca L 8.1 (SEP 06) L 8.2 (SEP 05) L 7.9 (SEP 04) L 7.7 (SEP 05) Lactic 1.5 (AUGUST 30) PT 10.8 (AUGUST 30) INR 1.0 (AUGUST 30) PTT H 40.2 (AUGUST 30) AST 10 (SEP 05) 12 (SEP 04) 9 (SEP 03) 13 (SEP 04) ALT L 9 (SEP 05) L 11 (SEP 04) L 10 (SEP 03) L 9 (SEP 04) ALK P 60 (SEP 05) 62 (SEP 04) 60 (SEP 03) 57 (SEP 02) T Bili 0.5 (SEP 05) 0.4 (SEP 04) 0.5 (SEP 03) 0.4 (SEP 04) PTN L 5.0 (SEP 05) L 4.5 (EDGARD 04) L 4.6 (SEP 03) L 4.2 (SEP 02) ALB L 2.8 (SEP 06) L 3.0 (SEP 05) L 2.3 (SEP 04) L 2.3 (SEP 03) Impression and Plan ARF: Cr stable at 1.7 with ocnintued slow downward trend . nonoliguric UOP with diuresis. Cr was intially elevated to 2.4 on admit from [facility] 0.9 06/2018. pt with multiple admssion to outside hosptial. Appears Cr up to 2.9 08/28. transferred here with multiple infections, hypotension, multiple abx. cont stricit I/O's. may need to cut back on diuresis Hypokalemia: replace. give Mg. HTN: BP stable. watch with diuresis. Anemia: transfuse PRN for Hgb < 7. Met acidosis: off po bicarb, may have developed contraction alk. Edema: better. getting ablumin and bumex. cont diuresis. S/P Knee surgery for explantation of harware due to infection Multiple infections: ID evaluating. getting abx Electronically signed by Aleks, [facility] Conversion Department Specialist Cerner at 07/24/2022 3:47 PM CDT documented in this encounter Plan of Treatment Not on file documented as of this encounter Visit Diagnoses Not on filedocumented in this encounter Care Teams Diesel Engine Inspector Relationship Specialty Start Date End Date Juan José Kendall MD [address] [facility] [address] [place] [id number] PCP - General Family Medicine 12/25/22 Juan José Kendall MD [address] [facility] [address] [place] [id number] Referring Physician Family Medicine 12/25/22 documented as of this encounter
--- OUTSIDE RECORDS SUMMARY | 2024-03-11 09:21 | XMS_ITS | Encounter Summary ---
Author Organization [employer] Address [address] [place] [address] Care Team Providers Care Gis Specialist Name Role Phone Juan José Kendall MD Primary Care Provider + [phone] Juan José Kendall MD Unavailable [phone] Encounter Details Date Type Department Care Team (Late st Contact Info) Description 09/07/2018 Transcribed Document [facility] Family Medicine [facility] [place] [address] ProviderLaurie MD [address] [place] [id number] Social History Tobacco Use Types Packs/Day Years Used Date Smoking Tobacco: Never Assessed Comments Unknown Sex and Gender Information Value Date Recorded Sex Assigned at Not on file Legal Sex Female 2:23 PM CDT Gender Identity Not on file Sexual Orientation Not on file documented as of this encounter Miscellaneous Notes * Cerner Conversion Note - Laurie ProviderMD - 09/07/2018 10:38 AM CDT On Going Discharge Planning Entered On: 09/07/2018 10:39 EDT Performed On: 09/07/2018 10:38 EDT by JAYE MAYFIELD Care Management-Scenic Artist Care Management Progress Note Discharge Arrangements : Patient Post-Acute Information Patient Name: TRUDI BLAIR Gender: Female : [birth year] Age: 63 Years No Post-Acute Placement(s) Listed No Post-Acute Service(s) Listed No [place] Referral(s) Listed Discharge Options Discussed with Patient : Acute rehabilitation, Short term rehabilitation Barriers to Discharge Identified : Insurance authorization pending Were Referrals Sent to Post Acute Providers : Yes JAYE MAYFIELD, Care Management-Scenic Artist - 09/07/2018 10:38 EDT Electronically signed by Aleks [facility] Conversion Welder Fitter Apprentice Cerner at 07/24/2022 3:33 PM CDT documented in this encounter Plan of Treatment Not on file documented as of this encounter Visit Diagnoses Not on filedocumented in this encounter Care Teams Gis Specialist Relationship Specialty Start Date End Date Juan José Kendall MD [facility] [facility] [address] [place] [id number] PCP - General Family Medicine 12/25/22 Juan José Kendall MD [address] [facility] [address] [place] [id number] Referring Physician Family Medicine 12/25/22 documented as of this encounter
--- OUTSIDE RECORDS SUMMARY | 2024-03-11 09:21 | XMS_ITS | Encounter Summary ---
Author Organization [employer] Address [address] [place] [address] Care Team Providers Care Analysis Evaluator Name Role Phone Juan José Kendall MD Primary Care Provider +- [phone] Juan José Kendall MD Unavailable [phone] Encounter Details Date Type Department Care Team (Late st Contact Info) Description 09/06/2018 Transcribed Document [facility] [place] Family Medicine [facility] [place] [address] ProviderLaurie MD [address] [place] [id number] Social History Tobacco Use Types Packs/Day Years Used Date Smoking Tobacco: Never Assessed Comments Unknown Sex and Gender Information Value Date Recorded Sex Assigned at Not on file Legal Sex Female 2:23 PM CDT Gender Identity Not on file Sexual Orientation Not on file documented as of this encounter Miscellaneous Notes * Cerner Conversion Note - Historical ProviderMD - 09/06/2018 2:33 PM CDT Patient: TRUDI BLAIR Age: 63 years Sex: Female : 1955 Associated Diagnoses: None Author: AMRITA BARNARD MD Reason for Consultation: MRSA septicemia, enterobacter UTI CC: left leg pain HPI: 08/30/18: Trudi Blair is a 63 yo woman with pmh of GERD, HTN, HLD, and left TKA in 2017 who was doing well until she had a left patellar tendon rupture in 06/2018 and was taken to the OR by Dr. Guerrero for tendon repair. She was more recently admitted to [facility] x2 earlier this month on 08/16 [...] wound care. She was transferred to [facility] [place] for a higher level of care. [...] No diarrhea, nausea, vomiting, or new rash. ROS: as above Medications by Classification Antimicrobials DAPTOmycin + Sodium Chloride 0.9% intravenous solution 50 mL - 700 mg, IV Piggyback, [id number], infuse over 30 Minute(s) Anticoagulant heparin - 5,000 Units, SubCutaneous, Inj, TID, Routine Cardiovascular metoprolol (Lopressor) - 25 mg, Oral, Tab, Daily, Routine cloNIDine - 0.1 mg, Oral, Tab, Q4H, PRN for Hypertension, Routine simvastatin - 40 mg, Oral, Tab, At Bedtime, Routine GI ondansetron - 4 mg, IV Push, Inj, Q4H, PRN for Nausea/Vomiting, Routine ondansetron (Zofran) - 4 mg, Oral, Tab, Q6H, PRN for Nausea/Vomiting, Routine pantoprazole - 40 mg, Oral, EC Tab, Daily, Routine magnesium hydroxide (Milk of Magnesia 8% oral suspension) - 30 mL, Oral, Liquid, Daily, PRN for Constipation, Routine bisacodyl (Dulcolax Laxative) - 10 mg, Rectal, Supp, BID, PRN for Constipation, Routine docusate (Colace) - 100 mg, Oral, Cap, BID, Routine magnesium sulfate - 2 Gram 50 mL, IV Piggyback, Inj, Daily, Administer over 2 Hour(s), PRN for Other (See Comment), Routine magnesium sulfate - 2 Gram 50 mL, IV Piggyback, Inj, Q2H, Administer over 2 Hour(s), PRN for Other (See Comment), Routine sodium phosphate - 15 mMole 5 mL, IV Piggyback, Daily, Administer over 5 Hour(s), PRN for Other (See Comment), Routine sodium phosphate - 15 mMole 5 mL, IV Piggyback, Q6H, Administer over 5 Hour(s), PRN for Other (See Comment), Routine metoclopramide - 10 mg, Oral, Tab, BID, Routine metoclopramide - 5 mg, IV Push, Inj, Q6H, PRN for Nausea/Vomiting, Routine scopolamine (Transderm-Scop 1.5 mg transdermal film, extende - 1 Patch, TransDermal, Patch, Q3Days, PRN for Nausea/Vomiting, Routine Neuro magnesium sulfate - 2 Gram 50 mL, IV Piggyback, Inj, Daily, Administer over 2 Hour(s), PRN for Other (See Comment), Routine *Duplicate* magnesium sulfate - 2 Gram 50 mL, IV Piggyback, Inj, Q2H, Administer over 2 Hour(s), PRN for Other (See Comment), Routine *Duplicate* topiramate - 25 mg, Oral, Cap, BID, Routine Psych traZODone - 50 mg, Oral, Tab, At Bedtime, PRN for Insomnia, Routine Pain Meds HYDROmorphone - 0.5 mg, IV Push, Inj, Q3H, PRN for Pain (Severe 7-10), Routine oxyCODONE - 10 mg, Oral, Tab, Q4H, PRN for Pain (Moderate 4-6), Routine acetaminophen-hydrocodone (acetaminophen-HYDROcodone 325 mg- - 1 Tab, Oral, Tab, Q4H, PRN for Pain (Moderate 4-6), Routine acetaminophen-hydrocodone (acetaminophen-HYDROcodone 325 mg- - 2 Tab, Oral, Tab, Q4H, PRN for Pain (Severe 7-10), Routine acetaminophen - 500 mg, Oral, Tab, Q6HInt, Routine acetaminophen (Tylenol) - 650 mg, Oral, Tab, Q4H, PRN for Other (See Comment), Routine Sedatives ALPRAZolam (Xanax) - 0.25 mg, Oral, Tab, Q6H, PRN for Anxiety, Routine temazepam (Restoril) - 15 mg, Oral, Cap, At Bedtime, PRN for Sleep, Routine Topical ammonium lactate topical (Amlactin 12% topical lotion) - 1 Application, Topical, Lotion, BID, See Comments, Routine Vitamins calcium gluconate - 1 Gram 10 mL, IV Piggyback, Daily, Administer over 60 Minute(s), PRN for Other (See Comment), Routine calcium gluconate + Sodium Chloride 0.9% intravenous solutio - 2 Gram 20 mL, IV Piggyback, Daily, Administer over 60 Minute(s), PRN for Other (See Comment), Routine calcium gluconate + Sodium Chloride 0.9% intravenous solutio - 2 Gram 20 mL, IV Piggyback, Q12H, Administer over 60 Minute(s), PRN for Other (See Comment), Routine magnesium sulfate - 2 Gram 50 mL, IV Piggyback, Inj, Daily, Administer over 2 Hour(s), PRN for Other (See Comment), Routine *Duplicate* magnesium sulfate - 2 Gram 50 mL, IV Piggyback, Inj, Q2H, Administer over 2 Hour(s), PRN for Other (See Comment), Routine *Duplicate* potassium chloride (potassium chloride 10 mEq/50 mL intraven - 10 mEq 100 mL, IV Piggyback, Inj, Q1H, Administer over 1 Hour(s), order duration: 4 Time(s), PRN for Other (See Comment), Routine potassium chloride (potassium chloride 20 mEq oral tablet, e - 20 mEq 1 Tab, Oral, CR Tab, Q2H, PRN for Other (See Comment), Routine potassium chloride (potassium chloride 20 mEq oral tablet, e - 60 mEq 3 Tab, Oral, CR Tab, Q2H, PRN for Other (See Comment), Routine potassium chloride (potassium chloride 20 mEq/15 mL oral liq - 20 mEq 15 mL, Feeding Tube, Liquid, Q2H, PRN for Other (See Comment), Routine potassium chloride (potassium chloride 20 mEq/15 mL oral liq - 60 mEq 45 mL, Feeding Tube, Liquid, Q2H, PRN for Other (See Comment), Routine sodium chloride (Normal Saline Flush) - 10 mL, IV Push, Inj, Q12H, Routine sodium chloride (Normal Saline Flush) - 5 mL, IntraVENous, Inj, See Comment, PRN for Other (See Comment), Routine sodium ferric gluconate complex (Ferrlecit) - 250 mg 20 mL, IV Piggyback, Daily, Administer over 2 Hour(s), order duration: 4 Day(s), Routine Undefined Medications albumin human (albumin human 25% intravenous solution) - 25 Gram 100 mL, IV Piggyback, Q6H, Administer over 1 Hour(s), order duration: 24 Hour(s), Routine Allergies (1) Active Reaction Biaxin Acid reflux Vitals Signs (last 24 hrs) Last Charted Minimum Maximum Temp 97.9 (SEP 06 11:00) 97.9 (SEP 06 11:00) 98.1 (SEP 06 01:35) Apical HR 75 (SEP 06 08:51) 75 (SEP 06 08:51) 75 (SEP 06 08:51) Mon HR 65 (SEP 06 11:00) 65 (SEP 06 11:00) 91 (SEP 05 18:22) Resp Rate 16 (SEP 06 11:00) 16 (SEP 05 22:22) 18 (SEP 05 18:22) SBP H 148 (SEP 06 11:00) 133 (SEP 05 18:22) H 151 (SEP 06 01:35) DBP 76 (SEP 06 11:00) L 58 (SEP 05 18:22) 76 (SEP 06 11:00) MAP 93 (SEP 06 11:00) 76 (SEP 05 18:22) 93 (SEP 06 11:00) SpO2 L 93 (SEP 06 11:00) L 93 (SEP 05 18:22) 100 (SEP 05 22:22) Gen: NAD. morbid obesity. pleasant HEENT: PERRL anicteric. no conjunctival hemorrhages. no thrush Pulm: CTAB. non-labored breathing on room air CV: RRR. no m/r/g. no peripheral edema Abd: obese abdomen. soft. non-tender, non-distended. normal bowel sounds. no HSM : no parekh catheter present MSK: left leg with wound VAC in place. no effusion noted over right knee. Skin: no rash noted over exposed skin. no signs of embolic phenomena. right-sided Groshong catheter in place, no erythema at site. Neuro: AAOX4. normal speech. Psych: cooperative. normal mood and affect Labs (Last four charted values) WBC 7.2 (SEP 04) 6.6 (SEP 03) 6.7 (SEP 02) 7.6 (SEP 03) HB L 7.7 (SEP 04) L 7.8 (EDGARD 03) L 7.7 (EDGARD 02) L 8.1 (SEP 01) HCT L 24.8 (SEP 04) L 24.9 (EDGARD 03) L 24.2 (SEP 02) L 24.9 (SEP 01) Plt 280 (EDGARD 04) 222 (EDGARD 03) 170 (EDGARD 02) L 162 (EDGARD 01) Na 146 (EDGARD 04) 143 (EDGARD 03) 146 (EDGARD 02) 144 (EDGARD 01) K L 3.3 (EDGARD 04) L 3.2 (EDGARD 03) L 3.2 (EDGARD 03) L 3.1 (EDGARD 02) Cl 112 (EDGARD 04) 111 (EDGARD 03) H 114 (EDGARD 02) H 114 (EDGARD 01) CO2 27 (EDGARD 04) 23 (EDGARD 03) 23 (EDGARD 02) 23 (EDGARD 01) BUN H 24 (EDGARD 04) H 26 (EDGARD 03) H 28 (EDGARD 02) H 31 (EDGARD 01) Cr H 1.79 (SEP 04) H 1.87 (SEP 03) H 1.90 (SEP 02) H 1.95 (SEP 03) Glu R 86 (SEP 06) 91 (SEP 03) 94 (SEP 02) 84 (SEP 03) Ca L 7.9 (SEP 04) L 7.7 (SEP 03) L 7.6 (SEP 02) L 6.9 (SEP 03) Lactic 1.5 (AUGUST 30) PT 10.8 (AUGUST 30) INR 1.0 (AUGUST 30) PTT H 40.2 (AUGUST 30) AST 12 (SEP 06) 9 (SEP 05) 13 (SEP 04) 14 (SEP 03) ALT L 11 (SEP 06) L 10 (SEP 05) L 9 (SEP 04) L 11 (SEP 03) ALK P 62 (SEP 06) 60 (SEP 05) 57 (SEP 04) 60 (SEP 03) T Bili 0.4 (SEP 06) 0.5 (SEP 05) 0.4 (SEP 04) 0.4 (SEP 03) PTN L 4.5 (SEP 06) L 4.6 (SEP 05) L 4.2 (SEP 04) L 4.1 (SEP 03) ALB L 2.3 (SEP 06) L 2.3 (SEP 05) L 2.0 (SEP 04) L 1.7 (SEP 03) Creatinine Clearance (Current Encounter/Past 24 Hours) Creatinine Level 1.79 mg/dL HI 09/06/2018 06:33 Bun/Creatinine 13.4 09/06/2018 06:31 Estimated Creatinine Clearance 29.72 mL/Min 09/06/2018 06:31 Micro: OSH micro results (per records provided in chart): 08/10 blood culture: MRSA (Vanc CATHY=1) 08/10 urine cx: enterococcus faecalis 08/10 wound culture: MRSA, staph epi 08/19 blood cx: staph hominis 08/19 blood cx: enterococcus faecalis, vanc-S SJE micro results: 08/30/18 blood culture x 2: ngtd 09/01/18 TTE: Trace tricuspid regurgitation. Mild pulmonary hypertension. Normal sized left ventricle. Normal left ventricular wall thickness. Normal left ventricular systolic function. Estimated ejection fraction 60% +/- 5%. Normal diastolic function. No hemodynamically significant valvular heart disease. No masses or thrombi are seen. Impression: -MRSA septicemia- grew from /8 blood cultures and was likely associate with right leg wound/prosthetic joint infection -enteroccocus UTI and septicemia- vanc sensitive enterococus grew from 08/19 blood culture and from / urine culture. some records reported enterobacter but [...] Possible secondary to ATN from sepsis. improving. nephrology following -morbidy obesity --Anemia-stable. no signs of active bleeding on exam --infected PICC line- s/p PICC removal 08/31. s/p groshong cath placement Plan: blood cultures and cultures from her knee finalized no growth ( although antibiotic modified) now s/p WANDA on 08/31/[address] Marie. wound care. wound VAC per surgical team continue to closely monitor cbc with diff and cmp TTE negative for signs of infective endocarditis continue daptomycin status post groshong cath placement She will need at least 6 weeks of IV antibiotics from the date of WANDA. Anticipated stop date is 10/05/18. UM/HAILEY: 1. daptomycin 700 mg IV every 24 hours. Anticipated stop date is 10/05/18. 2. Weekly Groshong catheter dressing changes. 3. Weekly CBC with differential, CMP, ESR, CRP, and CPK. 4. The patient will need to follow up with me within 1-2 weeks after her discharge ( unless she is discharged to [facility] rehabilitation and she can be followed by one of my partners there). clinic to call the patient with appointment instructions. 5. Could switch the patient to OPAT through [facility] when she is discharged from rehabilitation facility. ok to discharge to rehab whenever from my standpoint. I discussed with case management and placement at [facility] may not work out due to Daptomycin. Will look for placement at [facility] and other rehab facilities. complex set of medical issues requiring a high level of medical decision making. Patient has risk for further morbidity including loss of her limb. documented in this encounter Plan of Treatment Not on file documented as of this encounter Visit Diagnoses Not on filedocumented in this encounter Care Teams Analysis Evaluator Relationship Specialty Start Date End Date Juan José Kendall MD [address] [facility] [address] [place] [phone] PCP - General Family Medicine 12/25/22 Juan José Kendall MD [facility] [address] [place] [id number] Referring Physician Family Medicine 12/25/22 documented as of this encounter
--- OUTSIDE RECORDS SUMMARY | 2024-03-11 09:21 | XMS_ITS | Encounter Summary ---
Author Organization [employer] Address [address] [place] [address] Care Team Providers Care Cookie Breaker Name Role Phone Juan José Kendall MD Primary Care Provider +- [phone] Juan José Kendall MD Unavailable [phone] Encounter Details Date Type Department Care Team (Late st Contact Info) Description 09/07/2018 Transcribed Document [facility] [place] [facility] [place] [address] ProviderLaurie MD [address] [place] [address] Social History Tobacco Use Types Packs/Day Years Used Date Smoking Tobacco: Never Assessed Comments Unknown Sex and Gender Information Value Date Recorded Sex Assigned at Not on file Legal Sex Female 2:23 PM CDT Gender Identity Not on file Sexual Orientation Not on file documented as of this encounter Miscellaneous Notes * Cerner Conversion Note - Laurie ProviderMD - 09/07/2018 10:46 AM CDT Patient: TRUDI BLAIR Age: 63 [...] repair. She was more recently admitted to [facility] x2 earlier this [...] getting wound care. She was transferred to [facility] today for a [...] bowel movements overnight. No nausea or vomiting. ROS: as above Medications by Classification Antimicrobials DAPTOmycin + Sodium Chloride 0.9% intravenous solution 50 mL - 700 mg, IV Piggyback, [id number], infuse over 30 Minute(s) Anticoagulant heparin - [...] Other (See Comment), Routine magnesium sulfate - 1 Gram 100 mL, IV Piggyback, Inj, 1-Time, Administer over 1 Hour(s), Routine sodium phosphate - 15 mMole 5 [...] (See Comment), Routine *Duplicate* magnesium sulfate - 1 Gram 100 mL, IV Piggyback, Inj, 1-Time, Administer over 1 Hour(s), Routine *Duplicate* topiramate - 25 mg, Oral, [...] Application, Topical, Lotion, BID, See Comments, Routine collagenase topical (Santyl 250 units/g topical ointment) - 1 Application, Topical, Oint, Daily, See Comments, Routine Vitamins calcium gluconate - [...] (See Comment), Routine *Duplicate* magnesium sulfate - 1 Gram 100 mL, IV Piggyback, Inj, 1-Time, Administer over 1 Hour(s), Routine *Duplicate* potassium chloride (potassium chloride 10 [...] chloride 20 mEq oral tablet, e - 40 mEq 2 Tab, Oral, CR Tab, BID, order duration: 2 Time(s), Routine potassium chloride (potassium chloride 20 mEq/15 [...] order duration: 4 Day(s), Routine Undefined Medications bumetanide (Bumex) - 2 mg, Oral, Tab, 1-Time, Routine Allergies (1) Active Reaction Biaxin Acid reflux Vitals Signs (last 24 hrs) Last Charted Minimum Maximum Temp 98.1 (SEP 07 10:23) 97.9 (SEP 07 05:30) 98.1 (SEP 06 15:00) Apical HR 68 (SEP 07 09:41) 68 (SEP 07 09:41) 68 (SEP 07 09:41) Mon HR 78 (SEP 07 10:23) 61 (SEP 07 03:18) 84 (SEP 06 18:28) Resp Rate 16 (SEP 07 10:23) 16 (SEP 06 11:00) 16 (SEP 06 11:00) SBP 139 (SEP 07 10:23) 129 (SEP 06 18:28) H 148 (SEP 06 11:00) DBP 61 (SEP 07 10:23) L 53 (SEP 06 18:28) 76 (SEP 06 11:00) MAP 78 (SEP 07 10:23) 72 (SEP 06 18:28) 93 (SEP 06 11:00) SpO2 97 (SEP 07 10:23) L 93 (SEP 06 11:00) 97 (SEP 06 21:59) Gen: NAD. morbid obesity. pleasant HEENT: PERRL [...] affect Labs (Last four charted values) WBC 6.4 (SEP 05) 7.2 (SEP 04) 6.6 (SEP 03) 6.7 (SEP 02) HB L 7.5 (SEP 05) L 7.7 (SEP 04) L 7.8 (SEP 05) L 7.7 (EDGARD 02) HCT L 23.8 (EDGARD 05) L 24.8 (EDGARD 04) L 24.9 (EDGARD 03) L 24.2 (EDGARD 02) Plt 267 (EDGARD 05) 280 (EDGARD 04) 222 (EDGARD 03) 170 (EDGARD 02) Na 145 (EDGARD 05) 146 (EDGARD 04) 143 (EDGARD 03) 146 (EDGARD 02) K L 3.0 (EDGRAD 05) L 3.3 (EDGARD 04) L 3.2 (EDGARD 03) L 3.2 (EDGARD 03) Cl 111 (EDGARD 05) 112 (EDGARD 04) 111 (EDGARD 03) H 114 (EDGARD 02) CO2 27 (EDGARD 05) 27 (EDGARD 04) 23 (SEP 03) 23 (SEP 02) BUN H 29 (EDGARD 05) H 24 (EDGARD 04) H 26 (SEP 03) H 28 (SEP 04) Cr H 1.76 (EDGARD 05) H 1.79 (EDGARD 04) H 1.87 (SEP 03) H 1.90 (SEP 02) Glu R 86 (SEP 05) 86 (SEP 04) 91 (SEP 03) 94 (SEP 04) Ca L 8.2 (SEP 05) L 7.9 (EDGARD 04) L 7.7 (EDGARD 03) L 7.6 (SEP 02) Lactic 1.5 (AUGUST 30) PT 10.8 (AUGUST 30) INR 1.0 (AUGUST 30) PTT H 40.2 (AUGUST 30) AST 10 (EDGARD 05) 12 (EDGARD 04) 9 (EDGARD 03) 13 (SEP 02) ALT L 9 (SEP 05) L 11 (EDGARD 04) L 10 (SEP 03) L 9 (SEP 02) ALK P 60 (SEP 05) 62 (EDGARD 04) 60 (EDGARD 03) 57 (SEP 02) T Bili 0.5 (EDGARD 05) 0.4 (EDGARD 04) 0.5 (EDGARD 03) 0.4 (SEP 02) PTN L 5.0 (EDGARD 05) L 4.5 (EGDARD 04) L 4.6 (EDGARD 03) L 4.2 (EDGARD 02) ALB L 3.0 (EDGARD 05) L 2.3 (EDGARD 04) L 2.3 (EDGARD 03) L 2.0 (EDGARD 02) Creatinine Clearance (Current Encounter/Past 24 Hours) Creatinine Level 1.76 mg/dL HI 09/07/2018 05:24 Bun/Creatinine 16.5 09/07/2018 05:24 Estimated Creatinine Clearance 30.23 mL/Min 09/07/2018 05:24 Micro: OSH micro results (per records provided [...] are seen. Impression: -MRSA septicemia- grew from 08/10 blood cultures [...] groshong cath placement --diarrhea-we'll need to monitor. Adding probiotic Plan: blood cultures and cultures from her [...] discharge ( unless she is discharged to [facility] rehabilitation and she can be followed by one of my partners there). clinic to call the patient with appointment instructions. 5. Could switch the patient to OPAT through [facility] when she is discharged from rehabilitation facility. 6. added probiotic ok to discharge to rehab whenever from my standpoint. I discussed with case management and placement at [facility] may not work out due to Daptomycin. Will look for placement at [facility] and other rehab facilities. complex set of medical issues requiring a high level of medical decision making. Patient has risk for further morbidity including loss of her limb. documented in this encounter Plan of Treatment Not on file documented as of this encounter Visit Diagnoses Not on filedocumented in this encounter Care Teams Cookie Breaker Relationship Specialty Start Date End Date Juan José Kendall MD [address] [facility] [address] [place] [address] PCP - General Family Medicine 12/25/22 Juan José Kendall MD [address] [facility] [address] [place] [address] Referring Physician Family Medicine 12/25/22 documented as of this encounter
--- OUTSIDE RECORDS SUMMARY | 2024-03-11 09:21 | XMS_ITS | Encounter Summary ---
Author Organization [employer] Address [address] [place] [address] Care Team Providers Care Millroom Supervisor Name Role Phone Juan José Kendall MD Primary Care Provider +- [phone] Juan José Kendall MD Unavailable [phone] Encounter Details Date Type Department Care Team (Late st Contact Info) Description 09/08/2018 Transcribed Document [facility] [place] [facility] [place] [address] ProviderLaurie MD [address] [place] [address] Social History Tobacco Use Types Packs/Day Years Used Date Smoking Tobacco: Never Assessed Comments Unknown Sex and Gender Information Value Date Recorded Sex Assigned at Not on file Legal Sex Female 2:23 PM CDT Gender Identity Not on file Sexual Orientation Not on file documented as of this encounter Miscellaneous Notes * Cerner Conversion Note - Historical ProviderMD - 09/08/2018 11:05 AM CDT Discharge Summary, PT Entered On: 09/08/2018 12:03 EDT Performed On: 09/08/2018 11:05 EDT by CARLA MARTINES PTA Discharge Summary Discharge Summary Provider Notified : Physical Therapy CARLA MARTINES PTA - 09/08/2018 11:57 EDT Reason for Discharge : Discharged from hospital, Discharge order KRUPA PATEL, PT - 09/08/2018 14:30 EDT Discharged to, Therapy : assisted acute [facility] hospital ([facility]) Discharge Equipment, PT : Other: CARLA BAE PTA - 09/08/2018 11:57 EDT Discharge Summary Comment, PT : Met 1/2 acute care goals. Mod assist with getting LE's OOB/ CGA with trunk supine - sit on EOB; Max assist with getting LE's in bed/ CGA with trunk sit - supine; Dependent x 3 to scoot pt to head of bed. Requires cueing for hand placement and sequencing for bed mobility. Sat on EOB for 11 minutes unsupproted. Demonstrates good sitting balance. Left LE ankle pumps x 20 AROM. Decreased ROM actively. She was educated on the frequency to perform exercise as well as the importance of doing so to prevent foot drop. Would continue to benefit from physical therapy at [facility]. Krupa Patel, PT KRUPA PATEL, PT - 09/08/2018 14:30 EDT Central Office Worker Goals Other PT LTG Grid Goal #1 Goal #2 Other : Pt will perform supine to sit with mod x 2 for progression in functional activity tolerance. Pt will perform RLE ther-ex 2 x 10 reps AAROM for improvement in strength/ROM. Date to Meet : 09/09/2018 EDT 09/09/2018 EDT Goal Status : Goal met Progressing, continue Date Met : 09/08/2018 EDT KRUPA PATEL, PT - 09/08/2018 14:30 EDT KRUPA PATEL, PT - 09/08/2018 14:30 EDT documented in this encounter Plan of Treatment Not on file documented as of this encounter Visit Diagnoses Not on filedocumented in this encounter Care Teams Millroom Supervisor Relationship Specialty Start Date End Date Juan José Kendall MD [address] [facility] [address] [place] [id number] PCP - General Family Medicine 12/25/22 Juan José Kendall MD [address] [place] [facility] [address] [place] [phone] Referring Physician Family Medicine 12/25/22 documented as of this encounter
--- OUTSIDE RECORDS SUMMARY | 2024-03-11 09:21 | XMS_ITS | Encounter Summary ---
Author Organization [employer] Address [address] [place] [address] Care Team Providers Care Project Builder Name Role Phone Juan José Kendall MD Primary Care Provider +- [phone] Juan José Kendall MD Unavailable [phone] Encounter Details Date Type Department Care Team (Late st Contact Info) Description 09/08/2018 Transcribed Document [facility] [place] [address] ProviderLaurie MD [address] [place] [address] Social History Tobacco Use Types Packs/Day Years Used Date Smoking Tobacco: Never Assessed Comments Unknown Sex and Gender Information Value Date Recorded Sex Assigned at Not on file Legal Sex Female 2:23 PM CDT Gender Identity Not on file Sexual Orientation Not on file documented as of this encounter Miscellaneous Notes * Cerner Conversion Note - Historical ProviderMD - 09/08/2018 3:52 PM CDT Patient: TRUDI BLAIR Age: 63 [...] repair. She was more recently admitted to [facility] x2 earlier this month on [...] getting wound care. She was transferred to [facility] today for a [...] bowel movements overnight. No nausea or vomiting. 09/08/18: no fevers. tolerating abx without ADRs. Wound vac remains in place. diarrhea has improved. no n/v. no new rash. ROS: as above Medications by Classification Antimicrobials DAPTOmycin + Sodium Chloride 0.9% intravenous solution 50 mL - 700 mg, IV Piggyback, [id number], infuse over 30 Minute(s) Anticoagulant heparin - [...] TransDermal, Patch, Q3Days, PRN for Nausea/Vomiting, Routine saccharomyces boulardii lyo (Florastor) - 250 mg, Oral, Cap, Daily, Routine Neuro magnesium sulfate - 2 Gram [...] Comment, PRN for Other (See Comment), Routine Undefined Medications albumin human (albumin human 25% intravenous solution) - 25 Gram 100 mL, IV Piggyback, Q6HInt, Administer over 1 Hour(s), order duration: 2 Time(s), Routine bumetanide (Bumex) - 2 mg, Oral, Tab, BID, order duration: 2 Time(s), Routine Allergies (1) Active Reaction Biaxin Acid reflux Vitals Signs (last 24 hrs) Last Charted Minimum Maximum Temp 97.8 (SEP 08 09:44) 97.8 (SEP 08 09:44) 98 (SEP 07 18:22) Apical HR 70 (SEP 08 09:15) 70 (SEP 08 09:15) 70 (SEP 08 09:15) Mon HR 69 (SEP 08 09:44) 66 (SEP 05 23:09) 81 (SEP 07 18:22) Resp Rate 16 (SEP 08 09:44) 14 (SEP 08 06:00) 16 (SEP 07 18:22) SBP 135 (SEP 08 09:44) 120 (SEP 05 18:22) H 142 (SEP 08 06:00) DBP 63 (SEP 08 09:44) L 49 (SEP 07 18:22) 73 (SEP 08 09:15) MAP 80 (SEP 08 09:44) 73 (SEP 08 02:47) 85 (SEP 08 06:00) SpO2 94 (SEP 08 09:44) L 92 (SEP 08 02:47) 98 (SEP 07 18:22) Gen: NAD. morbid obesity. pleasant HEENT: PERRL anicteric. no conjunctival hemorrhages. no thrush Pulm: CTAB. non-labored breathing on room air CV: RRR. no m/r/g. no peripheral edema Abd: obese abdomen. soft. non-tender, non-distended. normal bowel sounds. no HSM : deferred MSK: left leg with wound VAC in place. no effusion noted over right knee. Skin: no rash noted over exposed skin. no signs of embolic phenomena. right-sided Groshong catheter in place, no erythema at site. Neuro: AAOX4. normal speech. Psych: cooperative. normal mood and affect Labs (Last four charted values) WBC 7.0 (SEP 06) 6.4 (EDGARD 05) 7.2 (EDGARD 04) 6.6 (EDGARD 03) HB L 7.6 (EDGARD 06) L 7.5 (EDGARD 05) L 7.7 (EDGARD 04) L 7.8 (EDGARD 03) HCT L 25.1 (EDGARD 06) L 23.8 (EDGARD 05) L 24.8 (EDGARD 04) L 24.9 (EDGARD 03) Plt 287 (EDGARD 06) 267 (EDGARD 05) 280 (EDGARD 04) 222 (SEP 03) Na H 148 (SEP 06) 145 (EDGARD 05) 146 (EDGARD 04) 143 (EDGARD 03) K 3.6 (EDGARD 06) L 3.0 (EDGARD 05) L 3.3 (EDGARD 04) L 3.2 (EDGARD 03) Cl 112 (EDGARD 06) 111 (EDGARD 05) 112 (EDGARD 04) 111 (EDGARD 03) CO2 28 (EDGARD 06) 27 (EDGARD 05) 27 (EDGARD 04) 23 (EDGARD 03) BUN H 26 (SEP 06) H 29 (EDGARD 05) H 24 (EDGARD 04) H 26 (EDGARD 03) Cr H 1.71 (EDGARD 06) H 1.76 (EDGARD 05) H 1.79 (EDGARD 04) H 1.87 (EDGARD 03) Glu R 84 (SEP 06) 86 (EDGARD 05) 86 (EDGARD 04) 91 (SEP 03) Ca L 8.1 (SEP 06) L 8.2 (EDGARD 05) L 7.9 (EDGARD 04) L 7.7 (SEP 03) Lactic 1.5 (AUGUST 30) PT 10.8 (AUGUST 30) INR 1.0 (AUGUST 30) PTT H 40.2 (AUGUST 30) AST 10 (EDGARD 05) 12 (EDGARD 04) 9 (SEP 03) 13 (SEP 02) ALT L 9 (SEP 05) L 11 (EDGARD 04) L 10 (EDGARD 03) L 9 (SEP 02) ALK P 60 (EDGARD 05) 62 (EDGARD 04) 60 (EDGARD 03) 57 (SEP 02) T Bili 0.5 (EDGARD 05) 0.4 (EDGARD 04) 0.5 (EDGARD 03) 0.4 (SEP 02) PTN L 5.0 (EDGARD 05) L 4.5 (EDGARD 04) L 4.6 (EDGARD 03) L 4.2 (EDGARD 02) ALB L 2.8 (EDGARD 06) L 3.0 (EDGARD 05) L 2.3 (EDGARD 04) L 2.3 (EDGARD 03) Creatinine Clearance (Current Encounter/Past 24 Hours) Creatinine Level 1.71 mg/dL HI 09/08/2018 05:17 Bun/Creatinine 15.2 09/08/2018 05:17 Estimated Creatinine Clearance 31.11 mL/Min 09/08/2018 05:17 Micro: OSH micro results (per records provided [...] with me within 1-2 weeks after her discharge. If she is transferred to [facility] then I can follow her there 5. Could switch the patient to OPAT through [facility] when she is discharged from LTAC/rehabilitation facility. 6. added probiotic ok to discharge to rehab whenever from my standpoint. Awaiting bed availability at [facility] apparently I discussed with her today complex set of medical issues requiring a high level of medical decision making. Patient has risk for further morbidity including loss of her limb. Electronically signed by Aleks, [facility] Conversion Transition Rn Cerner at 07/24/2022 3:39 PM CDT documented in this encounter Plan of Treatment Not on file documented as of this encounter Visit Diagnoses Not on filedocumented in this encounter Care Teams Project Builder Relationship Specialty Start Date End Date Juan José Kendall MD [address] [place] [id number] PCP - General Family Medicine 12/25/22 Juan José Kendall MD [address] [place] [phone] Referring Physician Family Medicine 12/25/22 documented as of this encounter
--- OUTSIDE RECORDS SUMMARY | 2024-03-11 09:21 | XMS_ITS | Encounter Summary ---
Author Organization [employer] Address [address] [place] [address] Care Team Providers Care Landscape Architecture Teacher Name Role Phone Juan José Kendall MD Primary Care Provider +- [phone] Juan José Kendall MD Unavailable [phone] Encounter Details Date Type Department Care Team (Late st Contact Info) Description 09/05/2018 Transcribed Document [facility] [place] [facility] [place] [address] ProviderLaurie MD [address] [place] [address] [id number] Social History Tobacco Use Types Packs/Day Years Used Date Smoking Tobacco: Never Assessed Comments Unknown Sex and Gender Information Value Date Recorded Sex Assigned at Not on file Legal Sex Female 2:23 PM CDT Gender Identity Not on file Sexual Orientation Not on file documented as of this encounter Miscellaneous Notes * Cerner Conversion Note - Historical ProviderMD - 09/05/2018 2:00 AM CDT Motor Builder Winder Details Entered On: 09/05/2018 4:42 EDT Performed On: 09/05/2018 2:00 EDT by Anali Hicks Rn Order Details Transport Mode Order Detail : Bed (including specialty) Isolation Precautions Order Detail : Contact precautions Order Detail : 0 IV Order Detail : 0 Oxygen Order Detail : 0 Nurse Collect Order Detail : 0 Lift/Transfer : Maximal assist Central Line Order Detail : Yes Room Service : Appropriate Arterial Line : No Anali Hicks Rn - 09/05/2018 4:42 EDT documented in this encounter Plan of Treatment Not on file documented as of this encounter Visit Diagnoses Not on filedocumented in this encounter Care Teams Landscape Architecture Teacher Relationship Specialty Start Date End Date Juan José Kendall MD [address] [facility] [address] [place] [address] PCP - General Family Medicine 12/25/22 Juan José Kendall MD [address] [facility] [address] [place] [phone] Referring Physician Family Medicine 12/25/22 documented as of this encounter
--- OUTSIDE RECORDS SUMMARY | 2024-03-11 09:21 | XMS_ITS | Encounter Summary ---
Author Organization [employer] Address [address] [place] [address] Care Team Providers Care Lumpia Wrapper Maker Name Role Phone Juan José Kendall MD Primary Care Provider +- [phone] Juan José Kendall MD Unavailable [phone] Encounter Details Date Type Department Care Team (Late st Contact Info) Description 09/06/2018 Transcribed Document [facility] [place] Family Medicine [facility] [place] [address] ProviderLaurie MD [address] [place] [address] Social History Tobacco Use Types Packs/Day Years Used Date Smoking Tobacco: Never Assessed Comments Unknown Sex and Gender Information Value Date Recorded Sex Assigned at Not on file Legal Sex Female 2:23 PM CDT Gender Identity Not on file Sexual Orientation Not on file documented as of this encounter Miscellaneous Notes * Cerner Conversion Note - Laurie ProviderMD - 09/06/2018 9:19 AM CDT Patient: TRUDI BLAIR Age: 63 years Sex: Female : 1955 Associated Diagnoses: None Author: LINDA MARQUEZ MD-ISAAK Subjective stable overnight. Objective VS/Measurements Vitals Signs (last 24 hrs) Last Charted Minimum Maximum Temp 98 (SEP 06 05:51) 97.8 (SEP 05 22:22) 98.1 (SEP 06 01:35) Apical HR 75 (EDGARD 04 08:51) 75 (EDGARD 04 08:51) 75 (EDGARD 04 08:51) Mon HR 75 (EDGARD 04 05:51) 75 (EDGARD 04 05:51) 91 (EDGARD 03 18:22) Resp Rate 18 (EDGARD 04 05:51) 16 (EDGARD 03 22:22) 18 (EDGARD 03 18:22) SBP H 142 (EDGARD 04 05:51) 133 (EDGARD 03 18:22) H 151 (EDGARD 04 01:35) DBP 62 (EDGARD 04 05:51) L 58 (EDGARD 03 18:22) 74 (EDGARD 04 01:35) MAP 81 (EDGARD 04 05:51) 76 (EDGARD 03 18:22) 91 (EDGARD 04 01:35) SpO2 96 (EDGARD 04 05:51) L 93 (EDGARD 03 18:22) 100 (SEP 05 22:22) Intake & Output Totals Last 24 Hours (7a-7a) Intake (13 Events) Medications (455.5 mL) Oral Intake (240 mL) Output (2 Events) Parekh Catheter (2400 mL) Input Total: 695.5 mL Output Total: 2400 mL Balance: -1704.5 mL General: No acute distress, WDWF. Respiratory: Respirations are non-labored. Cardiovascular: + ansarca. Gastrointestinal: Soft, Non-distended, obese. Genitourinary: + parekh. Integumentary: Warm, Dry, No rash. Neurologic: Alert, Oriented. Psychiatric: Cooperative, Appropriate mood & affect. Results Review Labs (Last four charted values) WBC 7.2 (SEP 04) 6.6 (SEP 03) 6.7 (SEP 02) 7.6 (SEP 01) HB L 7.7 (EDGARD 04) L 7.8 (EDGARD 03) L 7.7 (EDGARD 02) L 8.1 (SEP 01) HCT L 24.8 (EDGARD 04) L 24.9 (EDGARD 03) L 24.2 (EDGARD 02) L 24.9 (EDGARD 01) Plt 280 (EDGARD 04) 222 (EDGARD 03) 170 (EDGARD 02) L 162 (EDGARD 01) Na 146 (EDGARD 04) 143 (EDGARD 03) 146 (EDGARD 02) 144 (EDGARD 01) K L 3.3 (EDGARD 04) L 3.2 (EDGARD 03) L 3.2 (EDGARD 03) L 3.1 (EDGARD 02) Cl 112 (SEP 06) 111 (SEP 03) H 114 (SEP 02) H 114 (SEP 03) CO2 27 (SEP 06) 23 (SEP 05) 23 (SEP 04) 23 (SEP 03) BUN H 24 (SEP 06) H 26 (SEP 03) H 28 (SEP 04) H 31 (SEP 03) Cr H 1.79 (SEP 06) H 1.87 (SEP 05) H 1.90 (SEP 04) H 1.95 (SEP 03) Glu R 86 (SEP 06) 91 (SEP 05) 94 (SEP 04) 84 (SEP 03) Ca L 7.9 (SEP 06) L 7.7 (SEP 05) L 7.6 (SEP 04) L 6.9 (SEP 03) Lactic 1.5 (AUGUST [...] 2.0 (SEP 04) L 1.7 (SEP 03) Impression and Plan ARF: Cr continues to slowly improve with neg volume and nonoliguric UOP with diuresis. Cr was intially elevated to 2.4 on admit from [facility] 0.9 06/2018. pt with multiple admssion to outside hosptial. Appears Cr up to 2.9 08/28. transferred here with multiple infections, hypotension, multiple abx. Pharmacy doseing vanc. avoid vanc toxicity. HTN: BP stable. watch with diuresis. Anemia: transfuse PRN for Hgb < 7. Met acidosis: better. stop po bicarb may be getting contraction alk. Edema: better. neg volume past few days. 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 getting abx Electronically signed by Aleks, [facility] Conversion Heavy Duty Mechanic Cerner at 07/24/2022 3:40 PM CDT documented in this encounter Plan of Treatment Not on file documented as of this encounter Visit Diagnoses Not on filedocumented in this encounter Care Teams Lumpia Wrapper Maker Relationship Specialty Start Date End Date Juan José Kendall MD [address] [place] [facility] [address] [place] [phone] PCP - General Family Medicine 12/25/22 Juan José Kenadll MD [address] [place] [facility] [address] [place] [phone] Referring Physician Family Medicine 12/25/22 documented as of this encounter
--- OUTSIDE RECORDS SUMMARY | 2024-03-11 09:21 | XMS_ITS | Encounter Summary ---
Author Organization [employer] Address [address] [facility] [place] [address] Care Team Providers Care Head Operator Name Role Phone Juan José Kendall MD Primary Care Provider +- [phone] Juan José Kendall MD Unavailable [phone] Encounter Details Date Type Department Care Team (Late st Contact Info) Description 09/08/2018 Transcribed Document [facility] [place] Family Medicine [facility] [place] [address] ProviderLaurie MD [address] [place] [id number] Social History Tobacco Use Types Packs/Day Years Used Date Smoking Tobacco: Never Assessed Comments Unknown Sex and Gender Information Value Date Recorded Sex Assigned at Not on file Legal Sex Female 2:23 PM CDT Gender Identity Not on file Sexual Orientation Not on file documented as of this encounter Miscellaneous Notes * Cerner Conversion Note - Historical ProviderMD - 09/08/2018 3:00 AM CDT Nutrition Assessment Entered On: 09/08/2018 8:58 EDT Performed On: 09/08/2018 8:58 EDT by Laura Johnson Clinical Dietitiwilfrido Nutrition Assessment Nutrition Learning Needs : None at this time Laura Johnson Clinical Dietitian - 09/08/2018 9:31 EDT Nutrition Assessment Reason : Follow Up Laura Johnson Clinical Dietitian - 09/08/2018 8:58 EDT Current Nutrition Regimen Comment : 09/08: F/u and consult received for pressure ulcer. Marble Installation Helper noted Cr with continued slow downward trend, nonoliguric UOP with diuresis (on albumin and bumex, edema better). Case management noted referral pending insurance approval for LTAC. Dr Porter noted termite inspector plan for wound is either amputation versus fusion. Pt hopeful for discharge today, she reports fair appetite, had nausea this morning with dry heaves when on side of bed with therapy, discussed supplements she reports she drinks them both. Encouraged high protein intake to help with healing. 09/05: RD f/up. Spoke to pt who reported having no appetite and not remembering the last time she had one. Pt reports being able to eat only a few bites of food each meal. RD recommended Ensure TID; pt agreed but only BID. Family member at bedside reported the last facility she was at gave her high calorie high protein shakes, the family and pt requested a protein supplement in addition to the Ensures, RD recommended P2go daily; pt agreed. Pt was unsure about her weight history, saying her last UBW was around 270#. Unable to diagnose pt w/ malnutrition at this time without accurate wt history but pt may be at risk. Will cont. following wt trends and PO intake. Dx: sepsis, left prosthetic knee infection, PILY, MRSA septicemia, infected left wound, UTI PMH: GERD, high cholesterol, HTN Labs: Na 148, BUN 26, Cr 1.71, GFR 30, Alb 2.8; 09/05: CRP 15.1 Meds: Albumin, bumex, Abx, Colace, heparin, reglan, pantoprazole, florastor, statin, PRN pain Skin: right neck scratches, left arm abrasion from medical adhesive, left knee incision (s/p left total knee revision) with wound vac, left and right thigh stage 1 pressure ulcer (wound care noted was from liquid stool on patients thighs RN cleaned Pt), left ankle DTI, left heel unstageable Edema: 1+ bilateral arms, 2+ bilateral upper, lower legs, knees; 3+ bilateral ankles and 4+ bilateral feet GI: LBM 09/07, active BS Diet: Regular, Ensure Enlive BID (chocolate @ B+ D), Simón BID Intake: average 60% x 5 Ht: 66 Wt: 270#, no new wt (09/05), (09/08 significant edema noted) Wt Hx: 265# (06/23) BMI: 43.5 IBW/%IBW: 130#/208% Laura Johnson Clinical Dietitian - 09/08/2018 11:29 EDT Nutrition Diagnoses Oral or Nutrition Support Intake : Inadequate oral intake Oral or Nutr Support Intake Related To : decreased appetite Oral or Nutr Support Intake Evidenced by : po intake slowly improving, encourage meal intakes of at least 50-75% plus supplement use. Oral or Nutrition Support Intake Status : Active Nutrient Intake : Increased nutrient needs Nutrient Intake Related to : skin integrity Nutrient Intake As Evidenced by : left knee incision (s/p left total knee revision) with wound vac, left and right thigh stage 1 pressure ulcer, left ankle DTI, and left heel unstageable. Nutrient Intake Status : Active Increased Nutrient Needs Comment : Protein Weight : Unintended weight loss Weight Related to : decreased appetite; lifestyle Weight As Evidenced by : reported unsure wt loss per MST; BMI 43.5-admission Weight Status : Active Laura Johnson Clinical Dietitian - 09/08/2018 9:31 EDT Nutrition Interventions Meals and Snacks : General/Healthful diet Nutrition Supplement Therapy : Commercial beverage Laura Johnson Clinical Dietitian - 09/08/2018 9:31 EDT Monitoring/Evaluation Energy Intake : Total energy intake Food Intake : Amount of food Protein Intake : Total protein Weight Status : Weight Maintanence, Other: track edema trend Gastrointestinal Function : Bowel Function Integumentary : Pressure Ulcer Status, Wound Status Laura Johnson Clinical Dietitian - 09/08/2018 9:31 EDT Nutrition Recommendations Dietitian Recommendations : 1. Continue regular diet with Ensure Enlive BID + Simón BID. Goal: PO intake >50% of meals and supplements 2. Monitor wt 2x/wk. Ordered Wt. goal: no significant involuntary changes in wt Nutritional Risk: high Laura Johnson Clinical Dietitian - 09/08/2018 9:31 EDT documented in this encounter Plan of Treatment Not on file documented as of this encounter Visit Diagnoses Not on filedocumented in this encounter Care Teams Head Operator Relationship Specialty Start Date End Date Juan José Kendall MD [address] [facility] [address] [place] [id number] PCP - General Family Medicine 12/25/22 Juan José Kendall MD [address] [place] [address] Referring Physician Family Medicine 12/25/22 documented as of this encounter
--- OUTSIDE RECORDS SUMMARY | 2024-03-11 09:21 | XMS_ITS | Encounter Summary ---
Author Organization [employer] Address [address] [place] [address] Care Team Providers Care Animal Rehabilitator Name Role Phone Juan José Kendall MD Primary Care Provider + [phone] Juan José Kendall MD Unavailable [phone] Encounter Details Date Type Department Care Team (Late st Contact Info) Description 09/08/2018 Transcribed Document [facility] [place] Family [place] [facility] [place] [address] ProviderLaurie MD [address] [place] [id number] Social History Tobacco Use Types Packs/Day Years Used Date Smoking Tobacco: Never Assessed Comments Unknown Sex and Gender Information Value Date Recorded Sex Assigned at Not on file Legal Sex Female 2:23 PM CDT Gender Identity Not on file Sexual Orientation Not on file documented as of this encounter Miscellaneous Notes * Cerner Conversion Note - Historical ProviderMD - 09/08/2018 8:45 PM CDT Education-(VTE) / (DVT) Entered On: 09/09/2018 0:41 EDT Performed On: 09/08/2018 20:45 EDT by Linh Honeycutt RN Teaching/Learning Assessment Barriers To Learning : None evident Learning Style Preferences Patient : Demonstration, Verbal explanation Learning Style Preferences Family : Demonstration, Verbal explanation Education Comment : 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 Linh Honeycutt, RN - 09/09/2018 0:40 EDT documented in this encounter Plan of Treatment Not on file documented as of this encounter Visit Diagnoses Not on filedocumented in this encounter Care Teams Animal Rehabilitator Relationship Specialty Start Date End Date Juan José Kendall MD [address] [facility] [address] [place] [id number] PCP - General Family Medicine 12/25/22 Juan José Kendall MD [address] [facility] [address] [place] [id number] Referring Physician Family Medicine 12/25/22 documented as of this encounter
--- OUTSIDE RECORDS SUMMARY | 2024-03-11 09:21 | XMS_ITS | Encounter Summary ---
Author Organization [employer] Address [address] [facility] [place] [address] Care Team Providers Care Melter Supervisor Electric Arc Furnace Name Role Phone Juan José Kendall MD Primary Care Provider +- [phone] Juan José Kendall MD Unavailable [phone] Encounter Details Date Type Department Care Team (Late st Contact Info) Description 09/08/2018 Transcribed Document [facility] [place] [facility] [place] [address] ProviderLaurie MD [address] [place] [id number] Social History Tobacco Use Types Packs/Day Years [...] 8:45 PM CDT Pain Assessment Entered On: 09/09/2018 12:01 EDT Performed On: 09/09/2018 10:34 EDT by FRANTZ BROWN, RN Intervention Information: acetaminophen-HYDROcodone Performed by FRANTZ BROWN, RN on 09/09/2018 09:34:00 EDT acetaminophen-HYDROcodone,2Tab Oral,Pain (Severe 7-10) Pain Assessment Pain Assessment [...] in this encounter Care Teams Melter Supervisor Electric Arc Furnace Relationship Specialty Start Date End Date Juan José Kendall MD [address] [facility] [address] [place] [id number] PCP - General Family Medicine 12/25/22 Juan José Kendall MD [address] [place] [address] [address] [place] [id number] Referring Physician Family Medicine 12/25/22 documented as of this encounter
--- OUTSIDE RECORDS SUMMARY | 2024-03-11 09:21 | XMS_ITS | Encounter Summary ---
Author Organization [employer] Address [address] [place] [address] Care Team Providers Care Traffic Signal Repairer Name Role Phone Juan José Kendall MD Primary Care Provider + [phone] Juan José Kendall MD Unavailable [phone] Encounter Details Date Type Department Care Team (Late st Contact Info) Description 09/08/2018 Transcribed Document [facility] [place] Family Medicine [facility] [place] [address] Laurie Garcia MD [address] [place] [id number] Social History Tobacco Use Types Packs/Day Years Used Date Smoking Tobacco: Never Assessed Comments Unknown Sex and Gender Information Value Date Recorded Sex Assigned at Not on file Legal Sex Female 2:23 PM CDT Gender Identity Not on file Sexual Orientation Not on file documented as of this encounter Miscellaneous Notes * Cerner Conversion Note - Laurie ProviderMD - 09/08/2018 4:13 PM CDT Patient Education Materials Follows: What to expect after the Procedure: After the procedure, it is common to have: ?? Pain and swelling. ?? A small amount of blood or clear fluid coming from your incision for up to 7 days. ?? It is normal to have a moderate amount of bleeding from the site of the drain that was pulled on the morning after surgery. You can hold pressure on the area for 3-5 minutes and cover with a bandage as needed. Diet: ?? Resume usual diet ?? No alcoholic beverages while taking pain medication ?? Drink 8-10 glasses of water a day to prevent constipation from pain medication ?? Increase fiber to help prevent constipation. Straining can cause increased pressure and pain in your incision area ?? Increase protein to promote healing Driving: ?? Do not drive until your health care provider approves. Ask your health care provider when it is safe to drive if you have an immobilizer on your knee. ?? Do not drive or operate heavy machinery while taking prescription pain medicine. ?? Do not drive for 24 hours if you received a sedative. Activity: ?? Do not lift anything that is heavier than 10 lb (4.5 kg) until your health care provider approves. ?? No strenuous activity ?? Avoid high-impact activities, including running, jumping rope, and jumping jacks. ?? Avoid sitting for a long time without moving. Get up and move around at least every few hours. ?? Keep legs elevated while seated and place surgery leg on 2-3 pillows, this will decrease swelling ?? Continue doing blue foam and zepeda basin tub time 3 times a day for 30 minutes at a time. More often is better. ?? Continue using walker until cleared by physical therapy Bathing: ?? Do not take baths, swim, or use a hot tub for one month after surgery. ?? May shower on the third day after surgery by covering incision with Glad Brand Press and Seal saran wrap. After showering, dry off completely BEFORE removing saran wrap. ?? Use Press and Seal saran wrap to shower for one month after surgery ?? You must be seated to shower until you are no longer using the walker Other: ?? Use ice therapy for 20-30 minutes at a time and leave off for 20-30 minutes at a time. Always keep a towel or cloth between the ice pack and your skin ?? Continue to use Incentive Spirometer 10 times an hour while awake for one month to help prevent pneumonia Contact a health care provider if: ?? You have more redness, swelling, or pain around your incision. ?? You have more fluid or blood coming from your incision. ?? Your incision or drain site feels warm to the touch. ?? You have pus or a bad smell coming from your incision. ?? You have a fever. ?? Your incision breaks open after your health care provider removes your sutures, skin glue, or adhesive tape. ?? Your prosthesis feels loose. ?? You have knee pain that does not go away. DVT: Blood Clot Blood clots are a common risk after an orthopedic surgery Symptoms: ?? Swelling of your leg or arm, especially if one side is much worse. ?? Warmth and redness of your leg or arm, especially if one side is much worse. ?? Pain in your arm or leg. If the clot is in your leg, symptoms may be more noticeable or worse when you stand or walk. ?? A feeling of pins and needles, if the clot is in the arm. The symptoms of a DVT that has traveled to the lungs (pulmonary embolism, PE) usually start suddenly and include: ?? Shortness of breath while active or at rest. ?? Coughing or coughing up blood or blood-tinged mucus. ?? Chest pain that is often worse with deep breaths. ?? Rapid or irregular heartbeat. ?? Feeling light-headed or dizzy. ?? Fainting. ?? Feeling anxious. ?? Sweating. There may also be pain and swelling in a leg if that is where the blood clot started. How is this prevented? ?? Exercise regularly. For at least 30 minutes every day, engage in: ? Activity that involves moving your arms and legs. ? Activity that encourages good blood flow through your body by increasing your heart rate. ?? Exercise your arms and legs every hour during long-distance travel (over 4 hours). ?? Drink plenty of water and avoid drinking alcohol while traveling. ?? Avoid sitting or lying in bed for long periods of time without moving your legs. ?? Maintain a weight that is appropriate for your height. Ask your health care provider what weight is healthy for you. ?? If you are a woman who is over 35 years of age, avoid unnecessary use of medicines that contain estrogen. These include control pills. ?? Do not smoke, especially if you take estrogen medicines. If you need help quitting, ask your health care provider. ?? Wear compression stockings (if told by your health care provider) to help prevent blood clots from forming. High Fiber/High Protein Diet High fiber foods: To prevent constipation ?? Grains Whole-grain breads. Multigrain cereal. Oats and oatmeal. Brown rice. Barley. Bulgur wheat. Millet. Bran muffins. Popcorn. [place] wafer crackers. ?? Vegetables Sweet potatoes. Spinach. Kale. Artichokes. Cabbage. Broccoli. Green peas. Carrots. Squash. ?? Fruits Berries. Pears. Apples. Oranges. Avocados. Prunes and raisins. Dried figs. ?? Meats and Other Protein Sources [place], kidney, saxena, and soy beans. Split peas. Lentils. Nuts and seeds. ?? Dairy Fiber-fortified yogurt. ?? Beverages Fiber-fortified soy milk. Fiber-fortified orange juice. ?? Other Fiber bars. High-protein foods: To promote healing High-protein foods contain 4 grams (4 g) or more of protein per serving. They include: ?? Beef, ground sirloin (cooked) - 3 oz have 24 g of protein. ?? Cheese (hard) - 1 oz has 7 g of protein. ?? Chicken breast, boneless and skinless (cooked) - 3 oz have 13.4 g of protein. ?? Cottage cheese - 1/2 cup has 13.4 g of protein. ?? Egg - 1 egg has 6 g of protein. ?? Fish, filet (cooked) - 1 oz has 6-7 g of protein. ?? Garbanzo beans (canned or cooked) - 1/2 cup has 6-7 g of protein. ?? Kidney beans (canned or cooked) - 1/2 cup has 6-7 g of protein. ?? Talavera (cooked) - 3 oz has 24 g of protein. ?? Milk - 1 cup (8 oz) has 8 g of protein. ?? Nuts (peanuts, pistachios, almonds) - 1 oz has 6 g of protein. ?? Peanut butter - 1 oz has 7-8 g of protein. ?? Pork tenderloin (cooked) - 3 oz has 18.4 g of protein. ?? Pumpkin seeds - 1 oz has 8.5 g of protein. ?? Soybeans (roasted) - 1 oz has 8 g of protein. ?? Soybeans (cooked) - 1/2 cup has 11 g of protein. ?? Soy milk - 1 cup (8 oz) has 5-10 g of protein. ?? Soy or vegetable henry - 1 henry has 11 g of protein. ?? Jackson seeds - 1 oz has 5.5 g of protein. ?? Tofu (firm) - 1/2 cup has 20 g of protein. ?? Tuna (canned in water) - 3 oz has 20 g of protein. ?? Yogurt - 6 oz has 8 g of protein. Fall Prevention ?? Use night lights. ?? Install grab bars by the toilet and in the tub and shower. Do not use towel bars as grab bars. ?? Use non-skid mats or decals on the floor of the tub or shower. ?? If you need to sit down while you are in the shower, use a plastic, non-slip stool. ?? Keep the floor dry. Immediately clean up any water that spills on the floor. ?? Remove soap buildup in the tub or shower on a regular basis. ?? Remove throw rugs and other tripping hazards from the floor. ?? Place frequently used items in iqga-go-dtbmf places ?? Keep electrical cables out of the way. ?? Do not leave any items on the stairs. ?? Make sure that there are handrails on both sides of the stairs. Fix handrails that are broken or loose. Make sure that handrails are as long as the stairways. ?? Check any carpeting to make sure that it is firmly attached to the stairs. Fix any carpet that is loose or worn. ?? Avoid having throw rugs at the top or bottom of stairways, or secure the rugs with carpet tape to prevent them from moving. ?? Wear closed-toe shoes that fit well and support your feet. Wear shoes that have rubber soles or low heels. ?? Use mobility aids as needed, such as canes, walkers, scooters, and crutches. ?? Turn on lights if it is dark. Replace any light bulbs that burn out. ?? Set up furniture so that there are clear paths. Keep the furniture in the same spot. ?? Be aware of any and all pets. ?? Review your medicines with your healthcare provider. Some medicines can cause dizziness or changes in blood pressure, which increase your risk of falling. Hand Washing You should wash your hands whenever you think they are dirty. You should also wash your hands: ?? After: ? Working or playing outside. ? Touching an animal or its toys or leash. ? Handling livestock. ? Using the bathroom. ? Using household commercial ocean clammer or toxic chemicals. ? Touching or taking out the garbage. ? Touching anything dirty around your home. ? Handling soiled clothes or rags. ? Taking care of a sick child. This includes touching used tissues, toys, and clothes. ? Sneezing, coughing, or blowing your nose. ? Using public transportation. ? Shaking hands. ? Using a phone, including your mobile phone. ? Touching money. ?? Before and after: ? Preparing food. ? [...] 4. Repeat the process for each step. ?? Always keep both feet within the width of the walker's legs or wheels. ?? When using your walker, you should not feel like you need to lean forward or to the side to keep your hands on the handgrips. ?? Make sure you are following any weight-bearing instructions that your health care provider has given you. ?? Be careful not to let the walker get too far ahead of you as you walk. ?? If your walker does not glide well [...] with your stronger leg. Knee Immobilizer Brace: ?? Adjust the brace as often as needed while wearing it. It should be firm but not tight. Signs that the brace is too tight include: ? Puffiness (swelling). ? Numbness. ? Color change in your foot or ankle. ? Increased pain. documented in this encounter Plan of Treatment Not on file documented as of this encounter Visit Diagnoses Not on filedocumented in this encounter Care Teams Traffic Signal Repairer Relationship Specialty Start Date End Date Juan José Kendall MD [address] [facility] [address] [place] [address] PCP - General Family Medicine 12/25/22 Juan José eKndall MD 1210 [facility] [address] [place] [id number] Referring Physician Family Medicine 12/25/22 documented as of this encounter
--- OUTSIDE RECORDS SUMMARY | 2024-03-11 09:21 | XMS_ITS | Encounter Summary ---
Author Organization [employer] Address [address] [place] [address] Care Team Providers Care Airport Baggage Screener Name Role Phone Juan José Kendall MD Primary Care Provider +- [phone] Juan José Kendall MD Unavailable [phone] Encounter Details Date Type Department Care Team (Late st Contact Info) Description 09/06/2018 Transcribed Document [facility] [place] [facility] [place] [address] ProviderLaurie MD [address] [place] [address] Social History Tobacco Use Types Packs/Day Years Used Date Smoking Tobacco: Never Assessed Comments Unknown Sex and Gender Information Value Date Recorded Sex Assigned at Not on file Legal Sex Female 2:23 PM CDT Gender Identity Not on file Sexual Orientation Not on file documented as of this encounter Miscellaneous Notes * Cerner Conversion Note - Historical ProviderMD - 09/06/2018 2:00 AM CDT Slot Floor Attendant Details Entered On: 09/06/2018 3:35 EDT Performed On: 09/06/2018 2:00 EDT by Skyla Hearn Rn Order Details Transport Mode Order Detail : Bed (including specialty) Isolation Precautions Order Detail : Contact precautions Order Detail : 0 IV Order Detail : 1 Oxygen Order Detail : 0 Nurse Collect Order Detail : 0 Lift/Transfer : Maximal assist Central Line Order Detail : Yes Room Service : Appropriate Arterial Line : No Skyla Hearn Rn - 09/06/2018 3:35 EDT documented in this encounter Plan of Treatment Not on file documented as of this encounter Visit Diagnoses Not on filedocumented in this encounter Care Teams Airport Baggage Screener Relationship Specialty Start Date End Date Juan José Kendall MD [address] [facility] [address] [place] [id number] PCP - General Family Medicine 12/25/22 Juan José Kendall MD [address] [facility] [address] [place] [id number] Referring Physician Family Medicine 12/25/22 documented as of this encounter
--- OUTSIDE RECORDS SUMMARY | 2024-03-11 09:21 | XMS_ITS | Encounter Summary ---
Author Organization [employer] Address [address] [place] [address] Care Team Providers Care Candle Wrapper Name Role Phone Juan José Kendall MD Primary Care Provider + [phone] Juan José Kendall MD Unavailable [phone] Encounter Details Date Type Department Care Team (Late st Contact Info) Description 09/08/2018 Transcribed Document [facility] [place] [facility] [place] [address] ProviderLaurie MD [address] [place] [address] Social History Tobacco Use Types Packs/Day Years Used Date Smoking Tobacco: Never Assessed Comments Unknown Sex and Gender Information Value Date Recorded Sex Assigned at Not on file Legal Sex Female 2:23 PM CDT Gender Identity Not on file Sexual Orientation Not on file documented as of this encounter Miscellaneous Notes * Cerner Conversion Note - Laurie ProviderMD - 09/08/2018 5:00 AM CDT Chart Check - Review Order Profile Entered On: 09/08/2018 3:48 EDT Performed On: 09/08/2018 5:00 EDT by Geena De La Garza RN Chart Check Powerplans Initiated/Discontinued as Appropriate : Yes All Active Orders Reviewed : Yes Geena De La Garza RN - 09/08/2018 3:48 EDT documented in this encounter Plan of Treatment Not on file documented as of this encounter Visit Diagnoses Not on filedocumented in this encounter Care Teams Candle Wrapper Relationship Specialty Start Date End Date Juan José Kendall MD [address] [place] [id number] PCP - General Family Medicine 12/25/22 Juan José Kendall MD [address] [place] [id number] Referring Physician Family Medicine 12/25/22 documented as of this encounter
--- OUTSIDE RECORDS SUMMARY | 2024-03-11 09:21 | XMS_ITS | Encounter Summary ---
Author Organization [employer] Address [address] [place] [address] Care Team Providers Care Steamship Agent Name Role Phone Juan José Kendall MD Primary Care Provider + [phone] Juan José Kendall MD Unavailable [phone] Encounter Details Date Type Department Care Team (Late st Contact Info) Description 09/06/2018 Transcribed Document [facility] [place] [address] ProviderLaurie MD [address] [place] [address] Social History Tobacco Use Types Packs/Day Years Used Date Smoking Tobacco: Never Assessed Comments Unknown Sex and Gender Information Value Date Recorded Sex Assigned at Not on file Legal Sex Female 2:23 PM CDT Gender Identity Not on file Sexual Orientation Not on file documented as of this encounter Miscellaneous Notes * Cerner Conversion Note - Laurie ProviderMD - 09/06/2018 7:43 AM CDT On Going Discharge Planning Entered On: 09/06/2018 7:43 EDT Performed On: 09/06/2018 7:43 EDT by JAYE MAYFIELD Care Management-Machine Adjuster Helper Care Management Progress Note Discharge Arrangements : Patient Post-Acute Information Patient Name: TRUDI BLAIR Gender: Female : [birth year] Age: 63 Years No Post-Acute Placement(s) Listed No Post-Acute Service(s) Listed No [place] Referral(s) Listed Discharge Options Discussed with Patient : Acute rehabilitation, Short term rehabilitation JAYE MAYFIELD, Care Management-Machine Adjuster Helper - 09/06/2018 7:43 EDT Narrative Progress Note Narrative Progress Note : [place] will not accept pt on daptomycin. JAYE MAYFIELD, Care Management-Machine Adjuster Helper - 09/06/2018 7:43 EDT Electronically signed by [facility], [facility] Conversion Advertising Space Clerk Cerner at 07/24/2022 3:35 PM CDT documented in this encounter Plan of Treatment Not on file documented as of this encounter Visit Diagnoses Not on filedocumented in this encounter Care Teams Steamship Agent Relationship Specialty Start Date End Date Juan José Kendall MD [address] [facility] [address] [place] [id number] PCP - General Family Medicine 12/25/22 Juan José Kendall MD [address] [facility] [address] [place] [id number] Referring Physician Family Medicine 12/25/22 documented as of this encounter
--- OUTSIDE RECORDS SUMMARY | 2024-03-11 09:21 | XMS_ITS | Encounter Summary ---
Author Organization [employer] Address [address] [place] [address] Care Team Providers Care Railway Patrol Officer Name Role Phone Juan José Kendall MD Primary Care Provider + [phone] Juan José Kendall MD Unavailable [phone] Encounter Details Date Type Department Care Team (Late st Contact Info) Description 09/05/2018 Transcribed Document [facility] [place] [facility] [place] [address] ProviderLaurie MD [address] [place], [place] [id number] Social History Tobacco Use Types Packs/Day Years Used Date Smoking Tobacco: Never Assessed Comments Unknown Sex and Gender Information Value Date Recorded Sex Assigned at Not on file Legal Sex Female 2:23 PM CDT Gender Identity Not on file Sexual Orientation Not on file documented as of this encounter Miscellaneous Notes * Cerner Conversion Note - Laurie ProviderMD - 09/05/2018 8:32 AM CDT ASE MODIFY BEFORE SIGNING CLINICAL DOCUMENTATION CLARIFICATION FORM: Dear Dr. Porter Date: 09/05/18 Please exercise your independent, professional judgment in responding to the clarification form. Clinical indicators are provided on the bottom of this form for your review Please check appropriate box(s): [ ] Acute blood loss anemia [ ] Post-op anemia related to acute blood loss [ ] Anemia: [ ] Aplastic [ ] Nutritional [ ] Hemolytic [ ] Hereditary [ ] Acquired [ ] Autoimmune [ ] Non-autoimmune [ ] Enzyme disorder [ x ] Chronic Anemia: [x ] Blood loss [ ] Hemolytic [ ] Simple [ ] Due to Vitamin B12 Deficiency [ ] Other [ ] Anemia of Chronic Disease (please specify) [ ] Other diagnosis [ ] Unable to determine For continuity of documentation, please document condition throughout progress notes and discharge summary. Thank You. To be completed by CDI/Coding staff for physician review: Present Clinical Indicators - Signs / Symptoms / Labs Results and Location in Medical Record [x] Anemia 08/30 H&P; Anemia 09/02 PN; Anemia: Hgb dropped significantly to 5.0. ? Cause . [x] Hypotension 09/01 Vitals; 89/41, 92/41 [x] Low hemoglobin and/or hematocrit 08/31 Labs; H&H 7.8/ 24.5 09/02 Labs; H&H 5.1/ 15.8 [x] Tachycardia 09/01 Vitals; HR 104, 100 Present Risk Factors Results and Location in Medical Record [x] Surgery 08/31 OP Report; Removal of previously inserted polypropylene mesh and hardware, explantation of left total knee, insertion of polymethylmethacrylate space . [x] Blood loss 08/31 OP Report; Patient bled excessively, it was determined that she had the effect of a venous tourniquet, therefore the tourniquet was released and no further tourniquet control was utilized . Present Treatments Results and Location in Medical Record [x] Infusion of volume expanders (specify) 09/01 Orders; Albumin [x] Transfusion of blood products 09/04 PN; Has had 4 units of PRBCs [x] Blood stimulating drugs (Procrit, Iron) 09/03 Orders; Ferrlecit IV CDS Signature: Gardenia SHANNON, RN. Phone #: [phone] This is a permanent part of the Medical Record documented in this encounter Plan of Treatment Not on file documented as of this encounter Visit Diagnoses Not on filedocumented in this encounter Care Teams Railway Patrol Officer Relationship Specialty Start Date End Date Juan José Kendall MD [address] [place] [id number] PCP - General Family Medicine 12/25/22 Juan José Kendall MD [address] [place] [phone] Referring Physician Family Medicine 12/25/22 documented as of this encounter
--- OUTSIDE RECORDS SUMMARY | 2024-03-11 09:21 | XMS_ITS | Encounter Summary ---
Author Organization [employer] Address [address] [place] [address] Care Team Providers Care Quality Management Nurse Name Role Phone Juan José Kendall MD Primary Care Provider +- [phone] Juan José Kendall MD Unavailable [phone] Encounter Details Date Type Department Care Team (Late st Contact Info) Description 09/08/2018 Transcribed Document [facility] [place] [facility] [place] [address] ProviderLaurie MD [address] [place] [address] Social History Tobacco Use Types Packs/Day Years Used Date Smoking Tobacco: Never Assessed Comments Unknown Sex and Gender Information Value Date Recorded Sex Assigned at Not on file Legal Sex Female 2:23 PM CDT Gender Identity Not on file Sexual Orientation Not on file documented as of this encounter Miscellaneous Notes * Cerner Conversion Note - Laurie ProviderMD - 09/08/2018 8:11 PM CDT Patient: TRUDI BLAIR Age: 63 years Sex: Female : 1955 Associated Diagnoses: Sepsis; Left prosthetic knee infection; Enterococcus UTI (urinary tract infection); HTN (hypertension); Hypercholesterolemia; GERD (gastroesophageal reflux disease); History of obstructive sleep apnea; Stress incontinence; MRSA and Enterobacter bacteremia; Wound infection after surgery ,Left Knee; PILY (acute kidney injury); Anemia; Left posterior tibial vein thrombosis; Status post left total knee arthroplasty prosthesis explantation and spacer was on antibiotic placement; Hypoalbuminemia; Metabolic acidosis; Hypernatremia Author: JONES HIDALGO MD-INT Basic Information 63 years old white female with a complicated medical history as listed below who underwent left total knee arthroplasty back in August 13, 2016 and was doing well until June 27, 2018 when she had a ruptured tendon on her left knee and underwent left patellar tendon repair by Dr. Guerrero. She was transferred from local hospital in [facility] on 08/30/2018 to [facility] after she was treated with altered mental status changes secondary to Shantelle bacteremia, generalized weakness, hypotension, anemia for which she had a blood transfusion with packed RBCs, bacteriuria with pyuria and urine culture positive for Enterobacter in addition patient also had acute kidney injury. After she was found to have a prosthetic knee infection she was transferred to higher level of care at [facility] for orthopedic evaluation and ID consultation. Patient was then taken to the OR by Dr. Guerrero and underwent prosthesis explantation and spacer was on antibiotic placement. Initially on admission she was started on IV antibiotics was vancomycin and Rocephin then infectious disease was consulted and antibiotics were modified according to Dr. Martinez from ID, into daptomycin. 1???sepsis, as I mentioned this was treated by infectious disease currently patient on daptomycin. 2-Enterococcus UTI , on admission patient has had a Bazan catheter and antibiotics again 3???benign essential hypertension, all blood pressure medications were on hold for systolic blood pressure less than 130 and resumed 1 blood pressure became stabilized. 4???hypercholesterolemia, simvastatin 40 mg was given daily at bedtime 5???GERD, Protonix 40 mg was given daily 6???obstructive sleep apnea oxygen and BiPAP were on board 7???morbid obesity with BMI of 43.7, patient was on sleep apnea precautions 8???MRSA and Enterobacter bacteremia, antibiotics per infectious disease currently patient on daptomycin. 9???acute kidney injury, multifactorial, and kidney functions improved tremendously. Patient was seen by [facility] with close monitoring renal function as well as fluid and electrolytes. 10???anemia, patient had multiple blood transfusion at least 4 units of packed RBCs 11???iron deficiency, she had IV iron infusion daily ??4 days 12???B12 deficiency, she had subcutaneous injection thousand milligrams daily ??3 days He, patient is awake alert cooperative responsive under no acute distress and get the maximum benefit from her hospital stay and we had to move to another level of care and the patient is stable to be transferred to long-term acute care hospital Review of Systems Constitutional: No fever, No [...] Active Reaction Biaxin Acid reflux Current medications: No qualifying data available Problem list: Active Problems (8) Arthritis At risk for sleep apnea Back pain GERD (gastroesophageal reflux disease) High cholesterol History of obstructive sleep apnea HTN (hypertension) Stress incontinence Physical Examination VS/Measurements Vital Measurements 09/08/2018 19:00 EDT Temperature Source Oral Temperature Mode Fahrenheit Temperature, Fahrenheit 97.9 Deg F Clinical Temperature, C 36.6 Deg C Heart Rate Monitored 60 bpm Respiratory Rate 18 Breaths/Min Systolic Blood Pressure 147 mmHg HI Diastolic Blood Pressure 70 mmHg Oxygen Saturation 100 % General: Alert [...] Review / Management Results review: All Results 09/08/2018 4:37 EDT Sodium Level 148 mmol/L HI Potassium Level 3.6 mmol/L Chloride Level 112 mmol/L Carbon Dioxide Level 28 mmol/L Anion Gap 12 Glucose Level 84 mg/dL Blood Urea Nitrogen 26 mg/dL HI Creatinine Level 1.71 mg/dL HI eGFR 36 mL/min/1.73m2 LOW [...] % LOW Lymph # 1.17 K/uL LOW [place] % 8.9 % [place] # 0.63 K/uL Eos % 6.8 % Eos # 0.48 K/uL Baso % 0.9 % Baso # 0.06 K/uL Slide Review No IG# 0 x10(3)/uL IG% 2 % HI 09/07/2018 4:43 EDT Sodium Level 145 mmol/L [...] 19.2 % LOW Lymph # 1.22 K/uL [place] % 9.1 % [place] # 0.58 K/uL Eos % 7.2 % HI Eos # 0.46 K/uL Baso % 0.8 % Baso # 0.05 K/uL Slide Review No IG# 0 x10(3)/uL IG% 2 % HI . Condition: Stable. Discharge Plan Discharge Summary Plan Discharge Status: stable. Orders Diagnosis Sepsis - Discharge, Medical. Left prosthetic knee infection - Discharge, Medical. Enterococcus UTI (urinary tract infection) - Discharge, Medical. HTN (hypertension) - Discharge, Medical. Hypercholesterolemia - Discharge, Medical. GERD (gastroesophageal reflux disease) - Discharge, Medical. History of obstructive sleep apnea - Discharge, Medical. Stress incontinence - Discharge, Medical. MRSA and Enterobacter bacteremia - Discharge, Medical. Wound infection after surgery ,Left Knee - Discharge, Medical. PILY (acute kidney injury) - Discharge, Medical. Anemia - Discharge, Medical. Left posterior tibial vein thrombosis - Discharge, Medical. Status post left total knee arthroplasty prosthesis explantation and spacer was on antibiotic placement - Discharge, Medical. Hypoalbuminemia - Discharge, Medical. Metabolic acidosis - Discharge, Medical. Hypernatremia - Discharge, Medical. Course Improving. Stable. Plan/ pt is HD & CLINICALLY STABLE AFEBRILE OK TO D/C TO LONG-TERM ACUTE CARE HOSPITAL TO CONTINUE HER CARE AND REHABILITATION. Orders Order Profile (Selected) Prescriptions Prescribed DAPTOmycin 350 mg intravenous injection: See Instructions, 700 mg IV daily, # 1 Box, 0 Refill(s), Pharmacy: [facility] Documented Medications Documented Amlactin 12% topical lotion: 1 Application, Topical, Lotion, BID, 0 Refill(s) Bumex: 2 mg, Oral, Tab, BID, 0 Refill(s) HYDROmorphone 1 mg/mL injectable solution: 0.5 mL, IV Push, Inj, Q3H, PRN Pain (Severe 7-10), 0 Refill(s) Metoprolol Tartrate 50 mg oral tablet: 1 Tab, Oral, Tab, Daily, # 60 Tab, 0 Refill(s) Santyl 250 units/g topical ointment: 1 Application, Topical, Oint, Daily, 0 Refill(s) Transderm-Scop 1.5 mg transdermal film, extended release: 1 Patch, TransDermal, Patch, Q3Days, PRN Nausea/Vomiting, 0 Refill(s) acetaminophen 500 mg oral tablet: 1 Tab, Oral, Tab, Q6HInt, 0 Refill(s) metoclopramide 10 mg oral tablet: 1 Tab, Oral, Tab, BID, 0 Refill(s) metoclopramide 5 mg/mL injectable solution: 1 mL, IV Push, Inj, Q6H, PRN Nausea/Vomiting, 0 Refill(s) omeprazole: 20 mg, Oral, Cap, Daily, 0 Refill(s) oxyCODONE 5 mg oral tablet: 2 Tab, Oral, Tab, Q4H, PRN Pain (Moderate 4-6), 0 Refill(s) pantoprazole 40 mg oral delayed release tablet: 1 Tab, Oral, EC Tab, Daily, 0 Refill(s) potassium chloride 20 mEq oral tablet, extended release: Tab, Oral, BID, 0 Refill(s) simvastatin 40 mg oral tablet: 1 Tab, Oral, At Bedtime, 0 Refill(s) topiramate 25 mg oral capsule: 1 Cap, Oral, BID, 0 Refill(s). Impression and Plan twt 40 mn documented in this encounter Plan of Treatment Not on file documented as of this encounter Visit Diagnoses Not on filedocumented in this encounter Care Teams Quality Management Nurse Relationship Specialty Start Date End Date Juan José Kendall MD [address] [facility] [address] [place] [id number] PCP - General Family Medicine 12/25/22 Juan José Kendall MD [address] [facility] [address] [place] [phone] Referring Physician Family Medicine 12/25/22 documented as of this encounter
--- OUTSIDE RECORDS SUMMARY | 2024-03-11 09:21 | XMS_ITS | Encounter Summary ---
Author Organization [employer] Address [address] [place] [address] Care Team Providers Care Hyperion Analyst Name Role Phone Juan José Kendall MD Primary Care Provider [phone] Juan José Kendall MD Unavailable [phone] Encounter Details Date Type Department Care Team (Late st Contact Info) Description 09/07/2018 Transcribed Document [facility] [place] Family [place] [facility] [place] [address] ProviderLaurie MD [address] [place] [id number] Social History Tobacco Use Types Packs/Day Years Used Date Smoking Tobacco: Never Assessed Comments Unknown Sex and Gender Information Value Date Recorded Sex Assigned at Not on file Legal Sex Female 2:23 PM CDT Gender Identity Not on file Sexual Orientation Not on file documented as of this encounter Miscellaneous Notes * Cerner Conversion Note - Historical ProviderMD - 09/07/2018 11:50 AM CDT Treatment Intervention, PT Entered On: 09/07/2018 14:09 EDT Performed On: 09/07/2018 11:50 EDT by VINNIE LUI PTA General Information, PT Visit Type, PT : Treatment Note Patient Orders : Order Date Order Ordering 08/31/2018 18:29 PT Evaluation and Treatment Ordered By: JONG SANTACRUZ MD-ORT 09/01/2018 11:48 PT Additional Treatment Ordered By: Wilfrido Hedrick, Physical Therapist Active Diagnoses : 09/01/2018 00:00 Acidosis 09/01/2018 00:00 Encounter for fitting and adjustment of unspecified external prosthetic device 09/01/2018 00:00 Other disorders of plasma-protein metabolism, not elsewhere classified 08/31/2018 00:00 Acute embolism and thrombosis of unspecified vein 08/30/2018 00:00 Acute kidney failure, unspecified 08/30/2018 00:00 Anemia, unspecified 08/30/2018 00:00 Bacteremia 08/30/2018 00:00 Essential (primary) hypertension 08/30/2018 00:00 Gastro-esophageal reflux disease without esophagitis 08/30/2018 00:00 Infection following a procedure, other surgical site, initial encounter 08/30/2018 00:00 Other specified personal risk factors, not elsewhere classified 08/30/2018 00:00 Personal history of other diseases of the nervous system and sense organs 08/30/2018 00:00 Pure hypercholesterolemia, unspecified 08/30/2018 00:00 Sepsis, unspecified organism 08/30/2018 00:00 Stress incontinence (female) (male) 08/30/2018 00:00 Unspecified infectious disease 08/30/2018 00:00 Urinary tract infection, site not specified VINNIE LUI PTA - 09/07/2018 14:06 EDT Therapy Diagnosis, PT : aftercare following left knee explant with spacer VINNIE LUI PTA - 09/07/2018 14:12 EDT Admission Date : 08/30/2018 14:25 Personal Devices : Personal Devices No Devices Recorded Assistive Devices : Assistive Devices No Devices Recorded VINNIE LUI PTA - 09/07/2018 14:06 EDT General Status Patient Received Status : Long sitting in bed, Other: , left KI, fole catheter, needs in reach Treatment Start Time : 09/07/2018 11:32 EDT Patient Left Status : Long sitting in bed, Bed alarm activated, RN/PCT informed, Family/Visitors at bedside, All needs met and within reach, Other: , left KI, parekh catheter RN/PCT Informed Comment : LISBETH stanton'vianney pt for therapy session Treatment End Time : 09/07/2018 11:50 EDT Treatment Time : 18 Minute(s) VINNIE LUI PTA - 09/07/2018 14:12 EDT Edu Topics Physical Therapy Education Grid Therapeutic Exercises : Verbalizes understanding, Returns demonstration VINNIE LUI PTA - 09/07/2018 14:12 EDT Plan of Care, PT PT Tx Plan/Goals Established w Patient : Yes VINNIE LUI, ROTARY DRUM TANNER - 09/07/2018 14:12 EDT Leak Patcher Goals Other PT LTG Grid Goal #1 Goal #2 Other : Pt will perform supine to sit with mod x 2 for progression in functional activity tolerance. Pt will perform RLE ther-ex 2 x 10 reps AAROM for improvement in strength/ROM. Date to Meet : 09/09/2018 EDT 09/09/2018 EDT Goal Status : Progressing, continue Progressing, continue VINNIE LUI, ROTARY DRUM TANNER - 09/07/2018 14:12 EDT VINNIE LUI, ROTARY DRUM TANNER - 09/07/2018 14:12 EDT Treatment Note Subjective Comment : Pt stated she wants to stay in bed due to diarrhea. Pt agreeable to supine ther ex. Patient's Response to Treatment : Pt pleasant and worked well with therapy. Additional Objective Information : - BLE ther ex x20: ankle pumps, quad sets, gluteal sets, hip abd (AAROM) - RLE ther ex 2x10 (AAROM): short arch quads, straight leg raises - cues for proper return of exercises - encouraged pt and spouse to perform exercises independently throughout the day, verbalized understanding Ther Ex: 18 minutes Assessment : Pt tolerated exercises well. No goals met at this time. Plan for Treatment : Cont POC. VINNIE LUI, ROTARY DRUM TANNER - 09/07/2018 14:12 EDT Pain Assessment Pain Scaled Used : FACES Pain Score Pre-Intervention : 4 VINNIE LUIJACOB - 09/07/2018 14:12 EDT Image 1 - Images currently included in the form version of this document have not been included in the text rendition version of the form. Narcissa PT Charges PT Therap. Exercise 15 min : 1 VINNIE LUIJACOB - 09/07/2018 14:12 EDT Electronically signed by Adia Fink Conversion Supervisor Electronics Processing Cerner at 07/24/2022 3:54 PM CDT documented in this encounter Plan of Treatment Not on file documented as of this encounter Visit Diagnoses Not on filedocumented in this encounter Care Teams Hyperion Analyst Relationship Specialty Start Date End Date Juan José Kendall MD [address] [facility] [address] [place] [id number] PCP - General Family Medicine 12/25/22 Juan José Kendall MD [address] [place] [address] [place] [id number] Referring Physician Family Medicine 12/25/22 documented as of this encounter
--- OUTSIDE RECORDS SUMMARY | 2024-03-11 09:21 | XMS_ITS | Encounter Summary ---
Author Organization [employer] Address [address] [place] [address] Care Team Providers Care Merchandise Marker Name Role Phone Juan José Kendall MD Primary Care Provider +- [phone] Juan José Kendall MD Unavailable [phone] Encounter Details Date Type Department Care Team (Late st Contact Info) Description 09/05/2018 Transcribed Document [facility] [place] [facility] [place] [address] ProviderLaurie MD [address] [place] [address] Social History Tobacco Use Types Packs/Day Years Used Date Smoking Tobacco: Never Assessed Comments Unknown Sex and Gender Information Value Date Recorded Sex Assigned at Not on file Legal Sex Female 2:23 PM CDT Gender Identity Not on file Sexual Orientation Not on file documented as of this encounter Miscellaneous Notes * Cerner Conversion Note - Laurie ProviderMD - 09/05/2018 1:11 PM CDT Patient: TRUDI BLAIR Age: 63 [...] pain under control, no trouble w. urination. ???Improving renal functions ? Stable H&H E???On IV iron infusion ???On subcutaneous B12 injection daily ??3 days Review of Systems Constitutional: No fever, No [...] Reaction Biaxin Acid reflux Current medications: Medications (40) Active Scheduled: (12) #NaCl 0.9% *FLUSH* inj 10 mL 10 mL, IV Push, Q12H acetaminophen 500 mg tab 500 mg 1 Tab, Oral, Q6HInt albumin human 25% 25 Gram 100 mL, IV Piggyback, Q12H DAPTOmycin + NaCl 0.9% 50 mL 700 mg 14 mL, IV Piggyback, [id number] docusate sodium 100 mg cap 100 mg 1 Cap, Oral, BID metoclopramide 10 mg tab 10 mg 1 Tab, Oral, BID metoprolol tartrate 25 mg tab 25 mg 1 Tab, Oral, Daily pantoprazole EC 40 mg tab 40 mg 1 Tab, Oral, Daily simvaSTATin 20 mg tab 40 mg 2 Tab, Oral, At Bedtime sod ferric gluc cmplx 250 mg 20 mL, IV Piggyback, Daily sodium bicarbonate 650 mg tab 650 mg 1 Tab, Oral, TID topiramate 25 mg sprinkle cap 25 mg [...] apnea HTN (hypertension) Stress incontinence Physical Examination General: Alert and oriented, No acute distress. [...] Review / Management Results review: All Results 09/05/2018 4:22 EDT Sodium Level 143 mmol/L [...] 18.9 % LOW Lymph # 1.26 K/uL [place] % 10.2 % [place] # 0.68 K/uL Eos % 9.3 % HI Eos # 0.62 K/uL HI Baso % 0.6 % Baso # 0.04 K/uL Sed Rate Auto 8 mm/Hr Slide Review No IG# 0 x10(3)/uL IG% 1 % 09/04/2018 3:54 EDT Sodium Level 146 mmol/L Potassium Level 3.2 mmol/L LOW Chloride Level 114 mmol/L HI Carbon Dioxide Level 23 mmol/L Anion Gap 12 Glucose Level 94 mg/dL Blood Urea Nitrogen 28 mg/dL HI Creatinine Level 1.90 mg/dL HI eGFR 32 mL/min/1.73m2 LOW eGFR NonAfrican 27 mL/min/1.73m2 LOW Bun/Creatinine 14.7 Calcium Level 7.6 mg/dL LOW Protein Total 4.2 Gram/dL LOW Albumin Level 2.0 Gram/dL LOW Globulin 2.2 Gram/dL A/G Ratio 0.9 LOW Bilirubin Total 0.4 mg/dL Alk Phos 57 Units/Liter AST 13 Units/Liter ALT 9 Units/Liter LOW WBC 6.7 K/uL RBC 2.64 Million/uL LOW Hgb 7.7 Gram/dL LOW Hct 24.2 % LOW MCV 91.7 fL MCH 29.2 pg MCHC 31.8 Gram/dL LOW Platelet Count 170 K/uL MPV 11.0 fL RDW 16.1 % HI Neut % 65.9 % Neut # 4.39 K/uL Lymph % 14.1 % LOW Lymph # 0.94 K/uL LOW [place] % 9.9 % [place] # 0.66 K/uL Eos % 9.6 % HI Eos # 0.64 K/uL HI Baso % 0.4 % Baso # 0.03 K/uL Slide Review No IG# 0 x10(3)/uL IG% 0 % . Impression and Plan Diagnosis Sepsis [...] after surgery ,Left Knee - Admitting, Medical. PIYL (acute kidney injury) - Admitting, Medical. Anemia [...] nebs -For risk precautions -Sleep apnea precautions -Discharge plan to halfway facility/rehabilitation/LTAC. Orders Order Profile (Selected) Inpatient Orders Order CBC w/ Auto Diff: Specimen Type: Blood, AM Draw collect, 09/06/2018 4:00 EDT, 1-Time, Stop: 09/06/2018 4:00 EDT, Lab Collect CMP Comprehensive Metabolic Panel: Specimen Type: Blood, AM Draw collect, 09/06/2018 4:00 EDT, 1-Time, Stop: 09/06/2018 4:00 EDT, Lab Collect. documented in this encounter Plan of Treatment Not on file documented as of this encounter Visit Diagnoses Not on filedocumented in this encounter Care Teams Merchandise Marker Relationship Specialty Start Date End Date Juan José Kendall MD [address] [place] [id number] PCP - General Family Medicine 12/25/22 Juan José Kendall MD [address] [facility] [address] [place] [id number] Referring Physician Family Medicine 12/25/22 documented as of this encounter
--- OUTSIDE RECORDS SUMMARY | 2024-03-11 09:21 | XMS_ITS | Encounter Summary ---
Author Organization [employer] Address [address] [place] [address] Care Team Providers Care Trousseau Consultant Name Role Phone Juan José Kendall MD Primary Care Provider + [phone] Juan José Kendall MD Unavailable [phone] Encounter Details Date Type Department Care Team (Late st Contact Info) Description 09/07/2018 Transcribed Document [facility] [place] [address] [place] [address] ProviderLaurie MD [address] [place] [address] Social History Tobacco Use Types Packs/Day Years Used Date Smoking Tobacco: Never Assessed Comments Unknown Sex and Gender Information Value Date Recorded Sex Assigned at Not on file Legal Sex Female 2:23 PM CDT Gender Identity Not on file Sexual Orientation Not on file documented as of this encounter Miscellaneous Notes * Cerner Conversion Note - Historical ProviderMD - 09/07/2018 5:00 PM CDT Chart Check - Review Order Profile Entered On: 09/07/2018 18:19 EDT Performed On: 09/07/2018 17:00 EDT by Janae Alonso Rn Chart Check Powerplans Initiated/Discontinued as Appropriate : Yes All Active Orders Reviewed : Yes Janae Alonso Rn - 09/07/2018 18:19 EDT documented in this encounter Plan of Treatment Not on file documented as of this encounter Visit Diagnoses Not on filedocumented in this encounter Care Teams Trousseau Consultant Relationship Specialty Start Date End Date Juan José Kendall MD [address] [place] [id number] PCP - General Family Medicine 12/25/22 Juan José Kendall MD [address] [place] [id number] Referring Physician Family Medicine 12/25/22 documented as of this encounter
--- OUTSIDE RECORDS SUMMARY | 2024-03-11 09:21 | XMS_ITS | Encounter Summary ---
Author Organization [employer] Address [address] [place] [address] Care Team Providers Care Six Sigma Project Manager Name Role Phone Juan José Kendall MD Primary Care Provider +- [phone] Juan José Kendall MD Unavailable [phone] Encounter Details Date Type Department Care Team (Late st Contact Info) Description 09/07/2018 Transcribed Document [facility] [place] [facility] [place] [address] ProviderLaurie MD [address] [place] [address] Social History Tobacco Use Types Packs/Day Years Used Date Smoking Tobacco: Never Assessed Comments Unknown Sex and Gender Information Value Date Recorded Sex Assigned at Not on file Legal Sex Female 2:23 PM CDT Gender Identity Not on file Sexual Orientation Not on file documented as of this encounter Miscellaneous Notes * Cerner Conversion Note - Laurie Garcia MD - 09/07/2018 8:38 AM CDT Patient: TRUDI BLAIR Age: 63 years Sex: Female : 1955 Associated Diagnoses: None Author: LINDA MARQUEZ MD-ISAAK Subjective stable overnight. Objective VS/Measurements Vitals Signs (last 24 hrs) Last Charted Minimum Maximum Temp 97.9 (SEP 07 05:30) 97.9 (SEP 07 05:30) 98.1 (EDGARD 04 15:00) Apical HR 75 (EDGARD 04 08:51) 75 (EDGARD 04 08:51) 75 (EDGARD 04 08:51) Mon HR 68 (SEP 05 05:30) 61 (SEP 05 03:18) 84 (SEP 04 18:28) Resp Rate 16 (SEP 05 05:30) 16 (SEP 04 11:00) 16 (SEP 06 11:00) SBP 133 (SEP 05 05:30) 129 (EDGARD 04 18:28) H 148 (SEP 06 11:00) DBP 63 (SEP 05 05:30) L 53 (SEP 04 18:28) 76 (SEP 04 11:00) MAP 79 (SEP 05 05:30) 72 (SEP 04 18:28) 93 (SEP 06 11:00) SpO2 96 (SEP 07 05:30) L 93 (SEP 06 11:00) 97 (SEP 06 21:59) Intake & Output Totals Last 24 Hours (7a-7a) Intake (16 Events) Medications (756 mL) Output (3 Events) Parekh Catheter (2700 mL) Input Total: 756 mL Output Total: 2700 mL Balance: -1944 mL General: No acute distress, WDWF. Respiratory: Respirations are non-labored. Cardiovascular: + ansarca. Gastrointestinal: Soft, Non-distended, obese. Genitourinary: + parekh. Integumentary: Warm, Dry, No rash. Neurologic: Alert, Oriented. Psychiatric: Cooperative, Appropriate mood & affect. Results Review Labs (Last four charted values) WBC 6.4 (SEP 05) 7.2 (SEP 04) 6.6 (SEP 03) 6.7 (SEP 02) HB L 7.5 (EDGARD 05) L 7.7 (EDGARD 04) L 7.8 (EDGARD 03) L 7.7 (EDGARD 02) HCT L 23.8 (EDGARD 05) L 24.8 (EDGARD 04) L 24.9 (EDGARD 03) L 24.2 (EDGARD 02) Plt 267 (EDGARD 05) 280 (EDGARD 04) 222 (EDGARD 03) 170 (EDGARD 02) Na 145 (EDGARD 05) 146 (EDGARD 04) 143 (EDGARD 03) 146 (EDGARD 02) K L 3.0 (EDGARD 05) L 3.3 (EDGARD 04) L 3.2 (EDGARD 03) L 3.2 (EDGARD 03) Cl 111 (EDGARD 05) 112 (EDGARD 04) 111 (SEP 03) H 114 (SEP 04) CO2 27 (SEP 05) 27 (SEP 04) 23 (SEP 05) 23 (SEP 04) BUN H 29 (SEP 07) H 24 (SEP 04) H 26 (SEP 03) H 28 (SEP 04) Cr H 1.76 (SEP 05) H 1.79 (SEP 04) H 1.87 (SEP 05) H 1.90 (SEP 04) Glu R 86 (SEP 07) 86 (SEP 06) 91 (SEP 05) 94 (SEP 04) Ca L 8.2 (SEP 07) L 7.9 (SEP 06) L 7.7 (SEP 05) L 7.6 (SEP 04) Lactic 1.5 (AUGUST 30) PT 10.8 (AUGUST 30) INR 1.0 (AUGUST 30) PTT H 40.2 (AUGUST 30) AST 10 (SEP 07) 12 (SEP 06) 9 (SEP 05) 13 (SEP 04) ALT L 9 (SEP 07) L 11 (SEP 06) L 10 (SEP 05) L 9 (SEP 04) ALK P 60 (SEP 07) 62 (SEP 06) 60 (SEP 05) 57 (SEP 04) T Bili 0.5 (SEP 07) 0.4 (SEP 06) 0.5 (SEP 05) 0.4 (SEP 04) PTN L 5.0 (SEP 07) L 4.5 (SEP 06) L 4.6 (SEP 05) L 4.2 (SEP 04) ALB L 3.0 (SEP 07) L 2.3 (SEP 06) L 2.3 (SEP 05) L 2.0 (SEP 04) Impression and Plan ARF: Cr leveled at 1.7 withfurther neg volume and nonoliguric UOP with diuresis. Cr was intially elevated to 2.4 on admit from [facility] 0.9 06/2018. pt with multiple [...] may have developed contraction alk. Edema: better. neg volume past few days. 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 getting abx Electronically signed by Aleks, [facility] Conversion Laundry Operator Finishing Cerner at 07/24/2022 3:36 PM CDT documented in this encounter Plan of Treatment Not on file documented as of this encounter Visit Diagnoses Not on filedocumented in this encounter Care Teams Six Sigma Project Manager Relationship Specialty Start Date End Date Juan José Kendall MD [address] [facility] [address] [place] [id number] PCP - General Family Medicine 12/25/22 [place] [address] [place] [address] [address] [place] [id number] Referring Physician Family Medicine 12/25/22 documented as of this encounter
--- OUTSIDE RECORDS SUMMARY | 2024-03-11 09:21 | XMS_ITS | Encounter Summary ---
Author Organization [employer] Address [address] [place] [address] Care Team Providers Care Bilingual Legal Assistant Name Role Phone Juan José Kendall MD Primary Care Provider + [phone] Juan José Kendall MD Unavailable [phone] Encounter Details Date Type Department Care Team (Late st Contact Info) Description 09/06/2018 Transcribed Document [facility] Family [place] [address] ProviderLaurie MD [address] [place] [address] Social History Tobacco Use Types Packs/Day Years Used Date Smoking Tobacco: Never Assessed Comments Unknown Sex and Gender Information Value Date Recorded Sex Assigned at Not on file Legal Sex Female 2:23 PM CDT Gender Identity Not on file Sexual Orientation Not on file documented as of this encounter Miscellaneous Notes * Cerner Conversion Note - Laurie ProviderMD - 09/06/2018 7:54 AM CDT On Going Discharge Planning Entered On: 09/06/2018 7:56 EDT Performed On: 09/06/2018 7:54 EDT by JAYE [place] Care Management-Director Furniture Care Management Progress Note Discharge Arrangements : Patient Post-Acute Information Patient Name: TRUDI BLAIR Gender: Female : [birth year] Age: 63 Years No Post-Acute Placement(s) Listed No Post-Acute Service(s) Listed No [place] Referral(s) Listed Discharge Options Discussed with Patient : Acute rehabilitation, Short term rehabilitation JAYE [place], Care Management-Director Furniture - 09/06/2018 7:54 EDT Narrative Progress Note Narrative Progress Note : Patient is agreeable to look at other facilities, pt prefers [facility] if dapto can be changed, I will discuss with ID JAYE [place], Care Management-Director Furniture - 09/06/2018 7:54 EDT Electronically signed by [facility], [facility] Conversion Logistics Planning Engineer Cerner at 07/24/2022 3:39 PM CDT documented in this encounter Plan of Treatment Not on file documented as of this encounter Visit Diagnoses Not on filedocumented in this encounter Care Teams Bilingual Legal Assistant Relationship Specialty Start Date End Date Juan José Kendall MD [address] [facility] [address] [place] [id number] PCP - General Family Medicine 12/25/22 Juan José Kendall MD [address] [facility] [address] [place] [phone] Referring Physician Family Medicine 12/25/22 documented as of this encounter
--- OUTSIDE RECORDS SUMMARY | 2024-03-11 09:21 | XMS_ITS | Encounter Summary ---
Author Organization [email or web address] Address [address] [facility] [place] [address] Care Team Providers Care Ambulance Paramedic Name Role Phone Juan José Kendall MD Primary Care Provider +- [phone] Juan José Kendall MD Unavailable [phone] Encounter Details Date Type Department Care Team (Late st Contact Info) Description 09/08/2018 Transcribed Document [facility] [place] [address] ProviderLaurie MD [address] [place] [address] Social History Tobacco Use Types Packs/Day Years Used Date Smoking Tobacco: Never Assessed Comments Unknown Sex and Gender Information Value Date Recorded Sex Assigned at Not on file Legal Sex Female 2:23 PM CDT Gender Identity Not on file Sexual Orientation Not on file documented as of this encounter Miscellaneous Notes * Cerner Conversion Note - Historical ProviderMD - 09/08/2018 8:45 PM CDT Evaluation, Physical Therapy Entered On: 09/09/2018 14:03 EDT Performed On: 09/09/2018 13:55 EDT by MONICA ROBIN, EDWIN General Information, PT Visit Type, PT : Initial evaluation Patient Orders : Order Date Order Ordering 09/08/2018 20:45 PT Evaluation and Treatment Ordered By: JONES HIDALGO MD-INT Active Diagnoses : No Qualifying Diagnoses Therapy Diagnosis, PT : Debility Onset of Problem, PT : 09/09/2018 EDT Admission Date : 09/08/2018 18:19 Co-treated by, PT : Occupational Therapist Personal Devices : Personal Devices Glasses Assistive Devices : Assistive Devices No Devices Recorded Precautions in Place : Fall prevention measures General Information Comment, PT : Admit Dx: 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 [facility] transfer for prolonged antibiotics LLE TTWB/KI Hx: HTN, GERD MONICA ROBIN, PT - 09/09/2018 13:55 EDT General Status Patient Received Status : Supine in bed Treatment Start Time : 09/09/2018 13:15 EDT Patient Left Status : Supine in bed, Family/Visitors at bedside, Communication board completed, All needs met and within reach Treatment End Time : 09/09/2018 13:27 EDT Treatment Time : 12 Minute(s) MONICA ROBIN, PT - 09/09/2018 13:55 EDT History and Environment Patient Lives With : Spouse Persons Providing Information : Patient Home Equipment Therapy, PT : Commode, Walker, Wheelchair Commode : Commode, bedside Walker : Walker, front wheel Wheelchair : Wheelchair, standard Home Setup : One story Stairs : No MONICA ROBIN, PT - 09/09/2018 13:55 EDT Prior Level of Function PT GRID Prior LOF Bed Mobility : Assist needed Prior LOF Toileting : Assist needed Prior LOF Transfer : Assist needed MONICA ROBIN, PT - 09/09/2018 13:55 EDT Prior LOF Assist with ADL Comment : pt stating that she last walked around June 2018 but has been having a lot of difficulty and able to ambulate only short distances; per PT note from [facility], pt sitting EOB ~11min with therapy and attempt sit to stand but needing maxA x2 MONICA ROBIN, PT - 09/09/2018 13:55 EDT Lower Extremity RLE Active ROM : Impaired Right LE Strength : Impaired LLE Active ROM : Impaired Left LE Strength : Impaired MONICA ROBIN, PT - 09/09/2018 13:55 EDT Right Lower Extremity MMT Hip Flexion (0-125) : 2/poor Hip Abduction (0-45) : 2/poor Hip Adduction (0-20) : 2/poor Knee Flexion (0-140) : 2/poor Knee Extension (0-0) : 2/poor Ankle Dorsiflexion (0-20) : 2/poor Ankle Plantarflexion (0-45) : 2/poor MONICA ROBIN, PT - 09/09/2018 13:55 EDT Left Lower Extremity MMT Hip Flexion (0-125) : 2-/poor Hip Abduction (0-45) : 2-/poor Hip Adduction (0-20) : 2-/poor Ankle Dorsiflexion (0-20) : 2-/poor Ankle Plantarflexion (0-45) : 2-/poor MONICA ROBIN, PT - 09/09/2018 13:55 EDT Functional Mobility Functional MobilityComment : deferred per pt c/o nausea/vomitting ROBINSANDRAMONICA, PT - 09/09/2018 13:55 EDT Gait Training/Assessment, PT Gait Assistance Level : Unable to assess/activity not appropriate ROBINMONICA, PT - 09/09/2018 13:55 EDT Cognition Assessment, PT Orientation : Oriented x 4 Attention Assessment : Present ROBINSANDRAMONICA, PT - 09/09/2018 13:55 EDT Edu Topics Physical Therapy Education Grid Balance Training : Verbalizes understanding, Returns demonstration, Needs reinforcement Bed Mobility Training : Verbalizes understanding, Returns demonstration, Needs reinforcement Role of Physical Therapy : Verbalizes understanding, Returns demonstration, Needs reinforcement Therapeutic Exercises : Verbalizes understanding, Returns demonstration, Needs reinforcement Transfer Training : Verbalizes understanding, Returns demonstration, Needs reinforcement MONICA ROBIN, PT - 09/09/2018 13:55 EDT Indication Assesessment, PT Physical Therapy Indicated : Yes PT Problem List : Impaired, endurance tolerance, Impaired, sitting balance, Impaired, strength, Impaired, transfers MONICA ROBIN, PT - 09/09/2018 13:55 EDT Plan of Care, PT PT Tx Plan/Goals Established w Patient : Yes PT Frequency Rehab : Five days per week PT Duration Rehab : Fourteen days PT Treatments Planned : Balance training, Gait training, Therapeutic exercises, Transfer training ROBINSANDRAMONICA, PT - 09/09/2018 13:55 EDT Short Term Goals Mobility/Bed Mobility STG PT Grid Goal #1 Goal #2 Activity : Supine to sit Sit to stand Assist : Assist, moderate Assist, moderate Date to Meet : 09/23/2018 EDT 09/23/2018 EDT Goal Status : Initial goal Initial goal Comment : TTWB LLE SHARDA MONICA, PT - 09/09/2018 13:55 EDT MONICA ROBIN, PT - 09/09/2018 13:55 EDT Overnight Caregiver Goals Mobility/Bed Mobility LTG PT Grid Goal #1 Goal #2 Activity : Supine to sit Sit to stand Assist : Assist, minimal Assist, minimal Date to Meet : 10/07/2018 EDT 10/07/2018 EDT Goal Status : Intial Goal Intial Goal Comment : TTWB LLE MONICA ROBIN, PT - 09/09/2018 13:55 EDT MONICA ROBIN, PT - 09/09/2018 13:55 EDT Transfer LTG Grid Goal #1 Destination : Chair, with arms Assist : Assist, minimal Date to Meet : 10/07/2018 EDT Goal Status : Intial Goal Comment : TTWB LLE MONICA ROBIN, PT - 09/09/2018 13:55 EDT Treatment Note Subjective Comment : pt agreed to PTx eval Patient's Response to Treatment : Stable Assessment : pt with weakness, limited endurance, decreased functional mobility and LLE TTWB/KI; pt deferred mobility this session due to c/o nausea and emesis multiple times today Plan for Treatment : cont PTx POC SANDRA ROBINUAN, PT - 09/09/2018 13:55 EDT Pain Assessment Pain Scaled Used : 0-10 Pain scale Pain Score Pre-Intervention : 6 Location : Knee, left Pain Intervention, Drug : Medicated MONICA ROBIN, PT - 09/09/2018 13:55 EDT Image 1 - Images currently included in the form version of this document have not been included in the text rendition version of the form. Anticipated Discharge Needs, OT/PT Anticipated Discharge to : Unit, half-way Recommend Continued Therapy at Discharge : Yes ROBINSANDRAMONICA, PT - 09/09/2018 13:55 EDT [place] PT Charges PT Eval Moderate Complexity : 1 SHARDA MONICA, PT - 09/09/2018 13:55 EDT Electronically signed by Aleks [facility] Conversion Faculty Physician Cerner at 07/24/2022 3:35 PM CDT documented in this encounter Plan of Treatment Not on file documented as of this encounter Visit Diagnoses Not on filedocumented in this encounter Care Teams Ambulance Paramedic Relationship Specialty Start Date End Date Juan José Kendall MD [facility] [address] [place] [phone] PCP - General Family Medicine 12/25/22 Juan José Kendall MD [facility] [address] [place] [id number] Referring Physician Family Medicine 12/25/22 documented as of this encounter
--- OUTSIDE RECORDS SUMMARY | 2024-03-11 09:21 | XMS_ITS | Encounter Summary ---
Author Organization [employer] Address [address] [place] [address] Care Team Providers Care Press Assistant Name Role Phone Juan José Kendall MD Primary Care Provider +- [phone] Juan José Kendall MD Unavailable [phone] Encounter Details Date Type Department Care Team (Late st Contact Info) Description 09/06/2018 Transcribed Document [facility] [place] [facility] [place] [address] Laurie Garcia MD [address] [place] [address] Social History Tobacco Use Types Packs/Day Years Used Date Smoking Tobacco: Never Assessed Comments Unknown Sex and Gender Information Value Date Recorded Sex Assigned at Not on file Legal Sex Female 2:23 PM CDT Gender Identity Not on file Sexual Orientation Not on file documented as of this encounter Miscellaneous Notes * Cerner Conversion Note - Laurie ProviderMD - 09/06/2018 2:53 PM CDT [facility] Inpatient Documentation Entered On: 09/06/2018 15:12 EDT Performed On: 09/06/2018 14:53 EDT by Aric Jesus RN [facility] Admission Date : Admit Date 08/30/2018 14:[address] : Diagnosis (19) Sepsis, unspecified organism Unspecified infectious disease Urinary tract infection, site not specified Essential (primary) hypertension Pure hypercholesterolemia, unspecified Gastro-esophageal reflux disease without esophagitis Personal history of other diseases of the nervous system and sense organs Other specified personal risk factors, not elsewhere classified Stress incontinence (female) (male) Bacteremia Infection following a procedure, other surgical site, initial encounter Acute kidney failure, unspecified Anemia, unspecified Acute embolism and thrombosis of unspecified vein Encounter for fitting and adjustment of unspecified external prosthetic device Other disorders of plasma-protein metabolism, not elsewhere classified Acidosis Arthritis due to other bacteria, unspecified knee Arthritis due to other bacteria, unspecified knee Reason for WOCN Visit : Assessment, ongoing, Dressing change Admitting Diagnosis ST : Reason for Admission LEFT KNEE SEPTIC ARTHRITIS WOCN Assessment Summary : pt. seen today for trouble shooting of prevena vac. when assed, prevena dressing full and saturated, tubing full and 45 ml cannister full of serosanguinous drainage. dressing removed and incision cleansed with normal saline and patted dry. major weeping noted to be coming from poximal aspect of incision, this part was only partially covered by the prevena. new prevena placed to cover this area nd hooked up to ulta vac for more ability to manage drainage. when undoing the knee immobilizer to replace vac, it was noted tat there was a pink egg crate foam taped around patient's ankle. foam romoved t reveal aquacell silicone foam and mepilex ag dressign to patients heel. this dressing removed to reveal a 1 x 2 cm dtpi on pt.s achilles and an unstageable on posterior heel of 1.8 x 2.5 x 0.2 cm that was 100% yellow & garza slough. pt. states that this is a sore that was caused from her cast before she got to [facility]. aquacell ag and allevyn placed to cover but orders placed for daily santyl. it was candice noted that right heel was not offloaded and what looked to be a dti on lateral aspect of foot eventually went away. heel allevyn applied and foot placed in prevalon boot. thighs parted to reveal stage one from parekh, unable to determine if this was same stage one other wocn found yesterday. parekh repositioned but no matter how, due to patient anatomy, no way to reposition parekh tubing adequately, so tubing wrapped with abd pad. when assessing feet, both legs with +4 pitting edema and flay skin and very strong athletes foot type odor, also when assessing parekh tubing, liquid stool covering all of vagina and deep inner thighs. wocn asked nursing to bathe patient. wocn also informed nursing to assess parekh at the labial/ inner vagina level dfor injury due to morbid obesity of patient and that parekh was present before admission. Aric Jesus RN - 09/06/2018 14:53 EDT Education Topics, Wound Care Wound Education Grid Cleansing Wound : Needs reinforcement Debridement : Needs reinforcement Decrease Friction/Shear : Needs reinforcement Dressing Changes : Needs reinforcement Diapering : Needs reinforcement Etiology/Risk Factors : Needs reinforcement Hygiene : Needs reinforcement Incontinence Management : Needs reinforcement Infection Control : Needs reinforcement Nutritional Support : Needs reinforcement Pain Management : Needs reinforcement Plan of Care : Needs reinforcement Positioning : Needs reinforcement Postoperative Care : Needs reinforcement Pressure Relief : Needs reinforcement Pressure Ulcer Definition : Needs reinforcement Prevention : Needs reinforcement Principles of Wound Healing : Needs reinforcement Product Use : Needs reinforcement Recognize Signs and Symptoms of Skin Integrity Impairment : Needs reinforcement Reports Skin Changes to Healthcare Team : Needs reinforcement Risk Assessment : Needs reinforcement Skin Assessment : Needs reinforcement Skin Care : Needs reinforcement Support Surfaces : Needs reinforcement Wound Symptoms of Infection : Needs reinforcement Wound vacuum : Needs reinforcement Wound Care, Other : Needs reinforcement Aric Jesus RN - 09/06/2018 14:53 EDT documented in this encounter Plan of Treatment Not on file documented as of this encounter Visit Diagnoses Not on filedocumented in this encounter Care Teams Press Assistant Relationship Specialty Start Date End Date Juan José Kendall MD [address] [place] [address] [address] [place] [address] PCP - General Family Medicine 12/25/22 [place] [address] [place] [address] [address] [place] [address] Referring Physician Family Medicine 12/25/22 documented as of this encounter
--- OUTSIDE RECORDS SUMMARY | 2024-03-11 09:21 | XMS_ITS | Encounter Summary ---
Author Organization [employer] Address [address] [facility] [place] [address] Care Team Providers Care Veneer Trimmer Name Role Phone Juan José Kendall MD Primary Care Provider + [phone] Juan José Kendall MD Unavailable [phone] Encounter Details Date Type Department Care Team (Late st Contact Info) Description 09/08/2018 Transcribed Document [facility] [place] [facility] [place] [address] ProviderLaurie MD [address] [place] [address] Social History Tobacco Use Types Packs/Day Years Used Date Smoking Tobacco: Never Assessed Comments Unknown Sex and Gender Information Value Date Recorded Sex Assigned at Not on file Legal Sex Female 2:23 PM CDT Gender Identity Not on file Sexual Orientation Not on file documented as of this encounter Miscellaneous Notes * Cerner Conversion Note - Laurie ProviderMD - 09/08/2018 11:59 AM CDT REBECCA Entered On: 09/08/2018 12:00 EDT Performed On: 09/08/2018 11:59 EDT by JONES HIDALGO MD-INT REBECCA Indication of use for OOCS : Acute Illness OOCS Misuse Suspected : Other Was REBECCA queried : Other Patient Advised to seek OOCS Treatment : Other Treatment to Include Limited Supply of OOCS : Other REBECCA Result : Other REBECCA Other Notes : As per the transferring facility medical record Patient cancelled on OOCS : Other REBECCA : . JONES HIDALGO MD-INT - 09/08/2018 11:59 EDT Electronically signed by Aleks [facility] Conversion Water Valve Mechanic Cerner at 07/24/2022 3:43 PM CDT documented in this encounter Plan of Treatment Not on file documented as of this encounter Visit Diagnoses Not on filedocumented in this encounter Care Teams Veneer Trimmer Relationship Specialty Start Date End Date Juan José Kendall MD [address] [facility] [address] [place] [address] PCP - General Family Medicine 12/25/22 Juan José Kendall MD [address] [facility] [address] [place] [id number] Referring Physician Family Medicine 12/25/22 documented as of this encounter
--- OUTSIDE RECORDS SUMMARY | 2024-03-11 09:21 | XMS_ITS | Encounter Summary ---
Author Organization [employer] Address [address] [place] [address] Care Team Providers Care Molder Operator Name Role Phone Juan José Kendall MD Primary Care Provider +- [phone] Juan José Kendall MD Unavailable [phone] Encounter Details Date Type Department Care Team (Late st Contact Info) Description 09/08/2018 Transcribed Document [facility] [place] [facility] [place] [address] ProviderLaurie MD [address] [place] [address] Social History Tobacco Use Types Packs/Day Years Used Date Smoking Tobacco: Never Assessed Comments Unknown Sex and Gender Information Value Date Recorded Sex Assigned at Not on file Legal Sex Female 2:23 PM CDT Gender Identity Not on file Sexual Orientation Not on file documented as of this encounter Miscellaneous Notes * Cerner Conversion Note - Laurie ProviderMD - 09/08/2018 9:00 PM CDT Pain Assessment Entered On: 09/09/2018 2:03 EDT Performed On: 09/08/2018 23:04 EDT by Linh Honeycutt RN Intervention Information: acetaminophen Performed by Linh Honeycutt RN on 09/08/2018 22:04:00 EDT acetaminophen,500mg Oral Pain Assessment Pain Assessment : Follow-up assessment Pain Improved by Intervention : Yes Linh Honeycutt RN - 09/09/2018 2:03 EDT documented in this encounter Plan of Treatment Not on file documented as of this encounter Visit Diagnoses Not on filedocumented in this encounter Care Teams Molder Operator Relationship Specialty Start Date End Date Juan José Kendall MD [address] [facility] [address] [place] [phone] PCP - General Family Medicine 12/25/22 Juan José Kendall MD [facility] [address] [place] [phone] Referring Physician Family Medicine 12/25/22 documented as of this encounter
--- OUTSIDE RECORDS SUMMARY | 2024-03-11 09:21 | XMS_ITS | Encounter Summary ---
Author Organization [employer] Address [address] [place] [address] Care Team Providers Care Lead Customer Service Representative Name Role Phone Juan José Kendall MD Primary Care Provider + [phone] Juan José Kendall MD Unavailable [phone] Encounter Details Date Type Department Care Team (Late st Contact Info) Description 09/08/2018 Transcribed Document [facility] [place] [facility] [place] [address] ProviderLaurie MD [address] [place] [id number] Social History Tobacco Use Types Packs/Day Years Used Date Smoking Tobacco: Never Assessed Comments Unknown Sex and Gender Information Value Date Recorded Sex Assigned at Not on file Legal Sex Female 2:23 PM CDT Gender Identity Not on file Sexual Orientation Not on file documented as of this encounter Miscellaneous Notes * Cerner Conversion Note - Historical ProviderMD - 09/08/2018 6:45 PM CDT Provider Notification Entered On: 09/08/2018 18:46 EDT Performed On: 09/08/2018 18:45 EDT by Renate Wilson RN Provider Notification Provider Not Notified Reason : No significant change from prior results warranting no tx Renate Wilson RN - 09/08/2018 18:46 EDT documented in this encounter Plan of Treatment Not on file documented as of this encounter Visit Diagnoses Not on filedocumented in this encounter Care Teams Lead Customer Service Representative Relationship Specialty Start Date End Date Juan José Kendall MD [address] [place] [address] PCP - General Family Medicine 12/25/22 Juan José Kendall MD [address] [place] [phone] Referring Physician Family Medicine 12/25/22 documented as of this encounter
--- OUTSIDE RECORDS SUMMARY | 2024-03-11 09:21 | XMS_ITS | Encounter Summary ---
Author Organization [employer] Address [address] [place] [address] Care Team Providers Care Behaviour Support Teacher Name Role Phone Juan José Kendall MD Primary Care Provider +- [phone] Juan José Kendall MD Unavailable [phone] Encounter Details Date Type Department Care Team (Late st Contact Info) Description 09/08/2018 Transcribed Document [facility] [place] [facility] [place] [address] ProviderLaurie MD [address] [place] [address] Social History Tobacco Use Types Packs/Day Years Used Date Smoking Tobacco: Never Assessed Comments Unknown Sex and Gender Information Value Date Recorded Sex Assigned at Not on file Legal Sex Female 2:23 PM CDT Gender Identity Not on file Sexual Orientation Not on file documented as of this encounter Miscellaneous Notes * Cerner Conversion Note - Laurie ProviderMD - 09/08/2018 4:13 PM CDT Nursing Discharge Summary Entered On: 09/08/2018 16:16 EDT Performed On: 09/08/2018 16:13 EDT by Fay Cloud Rn Discharge Documentation Discharge Date/Time : 09/08/2018 16:45 EDT Patient Disposition, General : Discharge Discharge To : vermin exterminator care acute Mode Of Departure, General Discharge : Stretcher Accompanied By, Discharge : hourly caregiver Personal Belongings With Patient : Yes Prescriptions Given to Patient : No Discharge Instructions Reviewed With, Opportunity For Questions Given : Patient Teaching Method : Explanation Teaching Evaluation : Verbalizes understanding Education Comment : verbalizes understanding Fay Cloud Rn - 09/08/2018 16:13 EDT Electronically signed by Aleks, [facility] Conversion Guard Immigration Cerner at 07/24/2022 3:46 PM CDT documented in this encounter Plan of Treatment Not on file documented as of this encounter Visit Diagnoses Not on filedocumented in this encounter Care Teams Behaviour Support Teacher Relationship Specialty Start Date End Date Juan José Kendall MD [address] [facility] [address] [place] [address] PCP - General Family Medicine 12/25/22 Juan José Kendall MD [address] [facility] [address] [place] [phone] Referring Physician Family Medicine 12/25/22 documented as of this encounter
--- OUTSIDE RECORDS SUMMARY | 2024-03-11 09:21 | XMS_ITS | Encounter Summary ---
Author Organization [employer] Address [address] [facility] [place] [address] Care Team Providers Care Occupational Health Nurse Name Role Phone Juan José Kendall MD Primary Care Provider +- [phone] Juan José Kendall MD Unavailable [phone] Encounter Details Date Type Department Care Team (Late st Contact Info) Description 09/08/2018 Transcribed Document [facility] [place] [facility] [place] [address] ProviderLaurie MD [address] [place] [address] Social History Tobacco Use Types Packs/Day Years [...] ProviderMD - 09/08/2018 8:45 PM CDT Evaluation, Occupational Therapy Entered On: 09/09/2018 14:54 EDT Performed On: 09/09/2018 13:27 EDT by ROCHELLE RAZA OTR/Ivan General Information, OT Visit Type, OT : Initial evaluation Patient Orders : Order Date Order Ordering MD 09/08/2018 20:45 OT Evaluation and Treatment Ordered By: JONES HIDALGO MD-INT Active Diagnoses : No Qualifying Diagnoses Therapy Diagnosis, OT : decreased independence secondary to weakness, L LE pain Onset of Problem, OT : 09/08/2018 EDT Admission Date : 09/08/2018 18:19 Co-treated by, OT : Physical Therapist Personal Devices : Personal Devices Glasses Assistive Devices : Assistive Devices No Devices Recorded Precautions in Place : Fall prevention measures General Information Comment, OT : MRSA L TKA, Spacer placed. TTWLUZ MARINA Harley KAYLA, OTR/L - 09/09/2018 14:46 EDT General Status Patient Received Status : Supine in bed Treatment Start Time : 09/09/2018 13:15 EDT Patient Left Status : Supine in bed, RN/PCT informed, Family/Visitors at bedside, All needs met and within reach RN/PCT Informed Comment : LISBETH muñoz Treatment End Time : 09/09/2018 13:27 EDT Treatment Time : 12 Minute(s) ROCHELLE RAZA OTR/L - 09/09/2018 14:46 EDT History and Environment, OT Patient Lives With : Spouse Persons Providing Information : Patient Home Equipment, Therapy : Commode, Shower Equipment, Walker, Wheelchair Home Setup : One story Stairs : No ROCHELLE RAZA OTR/Ivan - 09/09/2018 14:46 EDT Prior LOF Bathing, OT : Assist needed Prior LOF Bed Mobility : Assist needed Prior LOF Upper Body Dressing, OT : Assist needed Prior LOF Lower Body Dressing, OT : Assist needed Prior LOF Toileting : Assist needed Prior LOF Transfer : Assist needed Prior LOF Grooming, OT : Assist needed Prior LOF Wheel Chair Mobility : Assist needed Prior LOF for IADLs, OT : Assist needed ROCHELLE RAZA OTR/Ivan - 09/09/2018 14:46 EDT Upper Extremity Right UE Active ROM : WFL Right UE Strength : WFL Left UE Active ROM : WFL Left UE Strength : WFL ROCHELLE RAZA OTR/Ivan - 09/09/2018 14:46 EDT Self Care/Home Management, OT Self Feeding Assist Level, OT : Independent, complete Grooming Assist Level, OT : Assist, minimal Bathing Assist Level, OT : Assist, moderate Upper Body Dressing Assist Level, OT : Assist, moderate Lower Body Dressing Assist Level, OT : Assist, maximal Toileting Assist Level : Assist, total ROCHELLE RAZA OTR/Ivan - 09/09/2018 14:46 EDT Mobility Device/Prosthesis/Wt Bearing Weight Bearing Order Status : TTWB LLE ROCHELLE RAZA OTR/L - 09/09/2018 14:46 EDT Cognition Assessment, OT Orientation : Oriented x 4 BIANCA RAZAYULIET SchulteR/L - 09/09/2018 14:46 EDT Indication Assessment, OT Occupational Therapy Indicated : Yes Problem List, OT : Impaired, bed mobility, Impaired, activities daily living, Impaired, endurance tolerance, Impaired functional mobility, Impaired, joint mobility, Impaired, muscle tone, Impaired, standing balance, Impaired, strength, Impaired, transfers Potential Barriers, OT : Acuity of illness, Pain Rehabilitation Potential, OT : Guarded STAS RAZAYULIET MENDOZAR/L - 09/09/2018 14:46 EDT Plan of Care, OT OT Tx Plan/Goals Established w Patient : Yes OT Frequency Rehab : Five days per week OT Duration Rehab : Fourteen days OT Treatments Planned : Activities of daily living, Balance training, Functional mobility training, Safety education, Therapeutic activities, Therapeutic exercises RAZASTASROCHELLEDEBO MENDOZA/Ivan - 09/09/2018 14:46 EDT Flatbed Stitcher Goals, OT Grooming LTG Grid Goal #1 Activity : Grooming Assist : Supervision or set up Date to Meet : 09/23/2018 EDT Goal Status : Initial goal RAZASTASROCHELLE, OTR/L - 09/09/2018 14:46 EDT Dressing, Lower Body LTG Grid Goal #1 Activity : Dressing, Lower Body Assist : Assist, minimal Equipment : Long Handled Research Aide, Sock aid, Long handled shoehorn Date to Meet : 09/23/2018 EDT Goal Status : Initial goal RAZASTASROCHELLEYULIET MENDOZAR/L - 09/09/2018 14:46 EDT Toilet Transfer LTG Grid Goal #1 Activity : Toilet Transfer, Squat Pivot Sit Assist : Assist, maximal Date to Meet : 09/23/2018 EDT Goal Status : Initial goal LUZ MARINASTASROCHELLE, OTR/L - 09/09/2018 14:46 EDT Bed Mobility/ Bed Transfer LTG Grid Goal #1 Goal #2 Activity : Bed Mobility, Supine to Sit Bed Mobility, Sit to Supine Assist : Assist, moderate Assist, moderate Date to Meet : 09/23/2018 EDT 09/23/2018 EDT Goal Status : Initial goal Initial goal ROCHELLE RAZA OTR/L - 09/09/2018 14:46 EDT ROCHELLE RAZA OTR/L - 09/09/2018 14:46 EDT Other LTG Grid Goal #1 Goal #2 Goal : pt to sit EOB 5 minutes for functional task pt to be independent with B UE HEP for strengthening Date to Meet : 09/23/2018 EDT 09/23/2018 EDT Goal Status : Initial goal Initial goal ROCHELLE RAZA OTR/Ivan - 09/09/2018 14:46 EDT ROCHELLE RAZA OTR/Ivan - 09/09/2018 14:46 EDT Treatment Note Subjective Comment : agreeable Patient's Response to Treatment : pt tolerated fairly Additional Objective Information : Pt refused EOB secondary to dry heaving. Pt UE WFL with fair strength. L LE limited motion in KI. Has wound vac. Assessment : pt limited by pain Plan for Treatment : see poc ROCHELLE RAZA OTR/Ivan - 09/09/2018 14:46 EDT Pain Assessment Pain Scaled Used : 0-10 Pain scale Pain Score During-Intervention : 8 ROCHELLE RAZA OTR/Ivan - 09/09/2018 14:46 EDT Image 1 - Images currently included in the form version of this document have not been included in the text rendition version of the form. Anticipated Discharge Needs, OT/PT Anticipated Discharge to : Unit, rehabilitation ROCHELLE RAZA OTR/Ivan - 09/09/2018 14:46 EDT [place] OT Charges OT Eval High Complexity : 1 ROCHELLE RAZA OTR/Ivan - 09/09/2018 14:46 EDT Electronically signed by Aleks [facility] Conversion Molding Associate Cerner at 07/24/2022 3:47 PM CDT documented in this encounter Plan of Treatment Not on file documented as of this encounter Visit Diagnoses Not on filedocumented in this encounter Care Teams Occupational Health Nurse Relationship Specialty Start Date End Date Juan José Kendall MD [address] [facility] [address] [place] [address] PCP - General Family Medicine 12/25/22 Juan José Kendall MD [address] [place] [address] Referring Physician Family Medicine 12/25/22 documented as of this encounter
--- OUTSIDE RECORDS SUMMARY | 2024-03-11 09:21 | XMS_ITS | Encounter Summary ---
Author Organization [employer] Address [address] [place] [address] Care Team Providers Care Automatic Splicing Machine Operator Name Role Phone Juan José Kendall MD Primary Care Provider +- [phone] Juan José Kendall MD Unavailable [phone] Encounter Details Date Type Department Care Team (Late st Contact Info) Description 09/08/2018 Transcribed Document [facility] [place] [facility] [place] [address] ProviderLaurie MD [address] [place] [address] Social History Tobacco Use Types Packs/Day Years Used Date Smoking Tobacco: Never Assessed Comments Unknown Sex and Gender Information Value Date Recorded Sex Assigned at Not on file Legal Sex Female 2:23 PM CDT Gender Identity Not on file Sexual Orientation Not on file documented as of this encounter Miscellaneous Notes * Cerner Conversion Note - Historical ProviderMD - 09/08/2018 6:43 PM CDT Height and Weight, Clinical Dosing Entered On: 09/08/2018 18:43 EDT Performed On: 09/08/2018 18:43 EDT by SAMANTHA HONEYCUTT RN Height and Weight, Clinical Dosing Height Source : Chart Height Entry Format : Metric Height, Centimeters : 167.6 cm(Converted to: 5 ft 6 Inch, 65.98 Inch) Clinical Height : 167.6 cm Weight Source : Bed scale Weight Entry Format : [place] Clinical Dosing Weight : 139.55 kg Weight, Pounds : 307 lb Body Surface Area (BSA) : 2.4 m2 Body Mass Index : 49.7 kg/m2 (>HHI) [place] Body Weight : 59 kg SAMANTHA HONEYCUTT, RN - 09/08/2018 18:43 EDT documented in this encounter Plan of Treatment Not on file documented as of this encounter Visit Diagnoses Not on filedocumented in this encounter Care Teams Automatic Splicing Machine Operator Relationship Specialty Start Date End Date Juan José Kendall MD [address] [facility] [address] [place] [phone] PCP - General Family Medicine 12/25/22 [place] [address] [place] [address] [address] [place] [phone] Referring Physician Family Medicine 12/25/22 documented as of this encounter
--- OUTSIDE RECORDS SUMMARY | 2024-03-11 09:22 | XMS_ITS | Encounter Summary ---
Author Organization [employer] Address [address] [place] [address] Care Team Providers Care Water Restoration Technician Name Role Phone Juan José Kendall MD Primary Care Provider +- [phone] Juan José Kendall MD Unavailable [phone] Encounter Details Date Type Department Care Team (Late st Contact Info) Description 09/01/2018 Transcribed Document [facility] [place] [facility] [place] [address] ProviderLaurie MD [address] [place] [address] Social History Tobacco Use Types Packs/Day Years Used Date Smoking Tobacco: Never Assessed Comments Unknown Sex and Gender Information Value Date Recorded Sex Assigned at Not on file Legal Sex Female 2:23 PM CDT Gender Identity Not on file Sexual Orientation Not on file documented as of this encounter Miscellaneous Notes * Cerner Conversion Note - Historical ProviderMD - 09/01/2018 2:00 AM CDT Service Order Clerk Details Entered On: 09/01/2018 0:30 EDT Performed On: 09/01/2018 2:00 EDT by Suzan Zapata RN Order Details Transport Mode Order Detail : Bed (including specialty) Isolation Precautions Order Detail : Contact precautions Order Detail : 0 IV Order Detail : 1 Oxygen Order Detail : 0 Nurse Collect Order Detail : 0 Lift/Transfer : Maximal assist Central Line Order Detail : No Room Service : Not Appropriate Arterial Line : No Suzan Zapata RN - 09/01/2018 0:30 EDT documented in this encounter Plan of Treatment Not on file documented as of this encounter Visit Diagnoses Not on filedocumented in this encounter Care Teams Water Restoration Technician Relationship Specialty Start Date End Date Juan José Kendall MD [address] [facility] [address] [place] [address] PCP - General Family Medicine 12/25/22 Juan José Kendall MD [address] [facility] [address] [place] [address] Referring Physician Family Medicine 12/25/22 documented as of this encounter
--- OUTSIDE RECORDS SUMMARY | 2024-03-11 09:22 | XMS_ITS | Encounter Summary ---
Author Organization [employer] Address [address] [facility] [place] [address] Care Team Providers Care Cold Roll Operator Name Role Phone Juan José Kendall MD Primary Care Provider [phone]- [phone] Juan José Kendall MD Unavailable [phone] Encounter Details Date Type Department Care Team (Late st Contact Info) Description 09/01/2018 Transcribed Document [facility] [place] [facility] [place] [address] ProviderLaurie MD [address] [place] [address] Social History Tobacco Use Types Packs/Day Years Used Date Smoking Tobacco: Never Assessed Comments Unknown Sex and Gender Information Value Date Recorded Sex Assigned at Not on file Legal Sex Female 2:23 PM CDT Gender Identity Not on file Sexual Orientation Not on file documented as of this encounter Miscellaneous Notes * Cerner Conversion Note - Laurie ProviderMD - 09/01/2018 1:00 AM CDT Pain Assessment Entered On: 09/01/2018 4:46 EDT Performed On: 09/01/2018 2:05 EDT by Suzan Zapata RN Intervention Information: acetaminophen Performed by Suzan Zapata RN on 09/01/2018 01:05:00 EDT acetaminophen,500mg Oral Pain Assessment Pain Assessment : Follow-up assessment Pain Scale Goal : 3 Pain Scale Used : FACES Pain Intervention, Drug : Medicated Pain Improved by Intervention : Yes Suzan Zapata RN - 09/01/2018 4:46 EDT Pain Scale Intensity : 1 Suzan Zapata RN - 09/01/2018 4:46 EDT Image 4 - Images currently included in the form version of this document have not been included in the text rendition version of the form. documented in this encounter Plan of Treatment Not on file documented as of this encounter Visit Diagnoses Not on filedocumented in this encounter Care Teams Cold Roll Operator Relationship Specialty Start Date End Date Juan José Kendall MD [address] [facility] [address] [place] [address] PCP - General Family Medicine 12/25/22 Juan José Kendall MD [address] [place] [address] [address] [place] [phone] Referring Physician Family Medicine 12/25/22 documented as of this encounter
--- OUTSIDE RECORDS SUMMARY | 2024-03-11 09:22 | XMS_ITS | Encounter Summary ---
Author Organization [employer] Address [address] [facility] [place] [address] Care Team Providers Care Telegraphic Typewriter Operator Chief Name Role Phone Juan José Kendall MD Primary Care Provider +- [phone] Juan José Kendall MD Unavailable [phone] Encounter Details Date Type Department Care Team (Late st Contact Info) Description 09/05/2018 Transcribed Document [facility] [place] [address] ProviderLaurie MD [address] [place] [address] Social History Tobacco Use Types Packs/Day Years Used Date Smoking Tobacco: Never Assessed Comments Unknown Sex and Gender Information Value Date Recorded Sex Assigned at Not on file Legal Sex Female 2:23 PM CDT Gender Identity Not on file Sexual Orientation Not on file documented as of this encounter Miscellaneous Notes * Cerner Conversion Note - Laurie ProviderMD - 09/05/2018 1:00 AM CDT Pain Assessment Entered On: 09/05/2018 4:42 EDT Performed On: 09/05/2018 1:43 EDT by Anali Hicks Rn Intervention Information: acetaminophen Performed by Anali Hicks Rn on 09/05/2018 00:43:00 EDT acetaminophen,500mg Oral Pain Assessment Pain Assessment : Follow-up assessment Pain Scale Goal : 3 Pain Scale Used : 0-10 Scale Location : Leg, left Onset : Constant Quality : Aching Pain Radiation : No Pain Improved by : Medication Pain Intervention, Drug : Medicated Pain Improved by Intervention : Yes Anali Hicks Rn - 09/05/2018 4:42 EDT Pain Scale Intensity : 5 Anali Hicks Rn - 09/05/2018 4:42 EDT Image 4 - Images currently included in the form version of this document have not been included in the text rendition version of the form. documented in this encounter Plan of Treatment Not on file documented as of this encounter Visit Diagnoses Not on filedocumented in this encounter Care Teams Telegraphic Typewriter Operator Chief Relationship Specialty Start Date End Date Juan José Kendall MD [address] [facility] [address] [place] [address] PCP - General Family Medicine 12/25/22 Juan José Kendall MD [address] [facility] [address] [place] [address] Referring Physician Family Medicine 12/25/22 documented as of this encounter
--- OUTSIDE RECORDS SUMMARY | 2024-03-11 09:22 | XMS_ITS | Encounter Summary ---
Author Organization [employer] Address [address] [place] [address] Care Team Providers Care Roll Forming Machine Operator Name Role Phone Juan José Kendall MD Primary Care Provider +- [phone] Juan José Kendall MD Unavailable [phone] Encounter Details Date Type Department Care Team (Late st Contact Info) Description 09/02/2018 Transcribed Document [facility] [place] [address] Laurie Garcia MD [address] [place] [address] Social History Tobacco Use Types Packs/Day Years Used Date Smoking Tobacco: Never Assessed Comments Unknown Sex and Gender Information Value Date Recorded Sex Assigned at Not on file Legal Sex Female 2:23 PM CDT Gender Identity Not on file Sexual Orientation Not on file documented as of this encounter Miscellaneous Notes * Cerner Conversion Note - Laurie Garcia MD - 09/02/2018 5:04 PM CDT Patient: TRUDI BLAIR Age: 63 [...] , pain under control, ???Slow progressive improvement ? H&H 5 and 15.8 respectively ???Transfusion of 2 units of packed RBCs in progress ???Has a Bazan catheter ???Had a Groshong placed Review of Systems Constitutional: No fever, No [...] Reaction Biaxin Acid reflux Current medications: Medications (38) Active Scheduled: (10) #NaCl 0.9% *FLUSH* inj 10 mL 10 mL, IV Push, Q12H acetaminophen 500 mg tab 500 mg 1 Tab, Oral, Q6HInt DAPTOmycin + NaCl 0.9% 50 mL 700 mg 14 mL, IV Piggyback, [id number] docusate sodium 100 mg cap 100 mg 1 Cap, Oral, BID metoclopramide 10 mg tab 10 mg 1 Tab, Oral, BID metoprolol tartrate 25 mg tab 25 mg 1 Tab, Oral, Daily pantoprazole EC 40 mg tab 40 mg 1 Tab, Oral, Daily simvaSTATin 20 mg tab 40 mg 2 Tab, Oral, At Bedtime sodium bicarbonate 650 mg tab 1,300 mg 2 Tab, Oral, TID topiramate 25 mg sprinkle [...] Stress incontinence Physical Examination VS/Measurements Vital Measurements 09/02/2018 16:22 EDT Temperature Source Oral Temperature Mode Fahrenheit Temperature, Fahrenheit 98.8 Deg F Clinical Temperature, C 37.1 Deg C Heart Rate Monitored 78 bpm Respiratory Rate 16 Breaths/Min Systolic Blood Pressure 126 mmHg Diastolic Blood Pressure 46 mmHg LOW Mean Arterial Pressure (MAP)-BMDI 65 Oxygen Saturation 100 % Oxygen Therapy Mode Room air General: [...] Review / Management Results review: All Results 09/02/2018 6:49 EDT Hgb 5.0 Gram/dL CRIT Hct 15.8 % CRIT 09/02/2018 4:15 EDT Sodium Level 146 mmol/L Potassium Level 3.6 mmol/L Chloride Level 115 mmol/L HI Carbon Dioxide Level 22 mmol/L Anion Gap 13 Glucose Level 98 mg/dL Blood Urea Nitrogen 36 mg/dL HI Creatinine Level 2.06 mg/dL HI eGFR 29 mL/min/1.73m2 LOW eGFR NonAfrican 24 mL/min/1.73m2 LOW Bun/Creatinine 17.5 Calcium Level 7.2 mg/dL LOW 09/01/2018 4:10 EDT Sodium Level 143 mmol/L Potassium Level 4.4 mmol/L Chloride Level 115 mmol/L HI Carbon Dioxide Level 18 mmol/L LOW Anion Gap 14 Glucose Level 126 mg/dL HI Blood Urea Nitrogen 33 mg/dL HI Creatinine Level 2.11 mg/dL HI eGFR 29 mL/min/1.73m2 LOW eGFR NonAfrican 24 mL/min/1.73m2 LOW Bun/Creatinine 15.6 Calcium Level 6.8 mg/dL LOW Protein Total 3.8 Gram/dL LOW Albumin Level 1.3 Gram/dL LOW Globulin 2.5 Gram/dL A/G Ratio 0.5 LOW Bilirubin Total 0.3 mg/dL Alk Phos 57 Units/Liter AST 33 Units/Liter ALT 18 Units/Liter Magnesium Level 2.0 mg/dL Phosphorus 5.3 mg/dL HI WBC 13.4 K/uL HI RBC 2.77 Million/uL LOW Hgb 7.9 Gram/dL LOW Hct 25.1 % LOW MCV 90.6 fL MCH 28.5 pg MCHC 31.5 Gram/dL LOW Platelet Count 188 K/uL MPV 10.9 fL RDW 16.9 % HI Neut % 85.1 % HI Neut # 11.39 K/uL HI Lymph % 9.0 % LOW Lymph # 1.21 K/uL Platte % 5.2 % Platte # 0.69 K/uL Eos % 0.0 % LOW Eos # 0.00 K/uL LOW Baso % 0.1 % Baso # 0.01 K/uL Slide Review No IG# 0 x10(3)/uL IG% 1 % . Condition: Stable. Impression and Plan [...] nebs -For risk precautions -Sleep apnea precautions -Transfusion of 2 units) -Close monitoring H&H E-Continue on IV antibiotics as recommended by infectious disease -Continue on wound care. documented in this encounter Plan of Treatment Not on file documented as of this encounter Visit Diagnoses Not on filedocumented in this encounter Care Teams Roll Forming Machine Operator Relationship Specialty Start Date End Date Juan José Kendall MD [address] [place] [facility] [address] [place] [phone] PCP - General Family Medicine 12/25/22 Juan José Kendall MD [address] [place] [facility] [address] [place] [address] Referring Physician Family Medicine 12/25/22 documented as of this encounter
--- OUTSIDE RECORDS SUMMARY | 2024-03-11 09:22 | XMS_ITS | Encounter Summary ---
Author Organization [employer] Address [address] [place] [address] Care Team Providers Care Boom Stick Man Name Role Phone Juan José Kendall MD Primary Care Provider + [phone] Juan José Kendall MD Unavailable [phone] Encounter Details Date Type Department Care Team (Late st Contact Info) Description 09/03/2018 Transcribed Document [facility] [place] [facility] [place] [address] ProviderLaurie MD [address] [place] [address] Social History Tobacco Use Types Packs/Day Years Used Date Smoking Tobacco: Never Assessed Comments Unknown Sex and Gender Information Value Date Recorded Sex Assigned at Not on file Legal Sex Female 2:23 PM CDT Gender Identity Not on file Sexual Orientation Not on file documented as of this encounter Miscellaneous Notes * Cerner Conversion Note - Laurie ProviderMD - 09/03/2018 8:42 AM CDT Patient: TRUDI BLAIR Age: 63 Years Sex: Female : 1955 c/o pain at left knee. eating, voiding. denies CP, SOB,calf pain. left knee wound vac intact. surrounding skin clear. NVI/negative erick's - BLE s/p I&D left knee abscess/ explantation continue present care. documented in this encounter Plan of Treatment Not on file documented as of this encounter Visit Diagnoses Not on filedocumented in this encounter Care Teams Boom Stick Man Relationship Specialty Start Date End Date Juan José Kendall MD [address] [facility] [address] [place] [id number] PCP - General Family Medicine 12/25/22 Juan José Kendall MD [address] [place] [facility] [address] [place] [address] Referring Physician Family Medicine 12/25/22 documented as of this encounter
--- OUTSIDE RECORDS SUMMARY | 2024-03-11 09:22 | XMS_ITS | Encounter Summary ---
Author Organization [employer] Address [address] [place] [address] Care Team Providers Care Rug Designer Name Role Phone Juan José Kendall MD Primary Care Provider + [phone] Juan José Kendall MD Unavailable [phone] Encounter Details Date Type Department Care Team (Late st Contact Info) Description 09/03/2018 Transcribed Document [facility] [place] [address] ProviderLaurie MD [address] [place] [address] Social History Tobacco Use Types Packs/Day Years Used Date Smoking Tobacco: Never Assessed Comments Unknown Sex and Gender Information Value Date Recorded Sex Assigned at Not on file Legal Sex Female 2:23 PM CDT Gender Identity Not on file Sexual Orientation Not on file documented as of this encounter Miscellaneous Notes * Cerner Conversion Note - Historical ProviderMD - 09/03/2018 4:00 PM CDT Patch Check Entered On: 09/03/2018 15:58 EDT Performed On: 09/03/2018 16:00 EDT by Janae Alonso Rn Patch Check Patch Check Result : Yes Patch Check - Type of Patch : scopolamine (Transderm-Scop) Patch Check Comments : left ear Janae Alonso Rn - 09/03/2018 15:58 EDT documented in this encounter Plan of Treatment Not on file documented as of this encounter Visit Diagnoses Not on filedocumented in this encounter Care Teams Rug Designer Relationship Specialty Start Date End Date Juan José Kendall MD [address] [place] [phone] PCP - General Family Medicine 12/25/22 Juan José Kendall MD [address] [place] [phone] Referring Physician Family Medicine 12/25/22 documented as of this encounter
--- OUTSIDE RECORDS SUMMARY | 2024-03-11 09:22 | XMS_ITS | Encounter Summary ---
Author Organization [employer] Address [address] [place] [address] Care Team Providers Care Recycling Operator Name Role Phone Juan José Kendall MD Primary Care Provider + [phone] Juan José Kendall MD Unavailable [phone] Encounter Details Date Type Department Care Team (Late st Contact Info) Description 09/02/2018 Transcribed Document [facility] [place] Family [place] [address] [place] [address] ProviderLaurie MD [address] [place] [address] Social History Tobacco Use Types Packs/Day Years Used Date Smoking Tobacco: Never Assessed Comments Unknown Sex and Gender Information Value Date Recorded Sex Assigned at Not on file Legal Sex Female 2:23 PM CDT Gender Identity Not on file Sexual Orientation Not on file documented as of this encounter Miscellaneous Notes * Cerner Conversion Note - Historical ProviderMD - 09/02/2018 5:00 AM CDT Chart Check - Review Order Profile Entered On: 09/02/2018 3:30 EDT Performed On: 09/02/2018 5:00 EDT by Dayday Crump RN Chart Check Powerplans Initiated/Discontinued as Appropriate : Yes All Active Orders Reviewed : Yes Dayday Crump RN - 09/02/2018 3:30 EDT documented in this encounter Plan of Treatment Not on file documented as of this encounter Visit Diagnoses Not on filedocumented in this encounter Care Teams Recycling Operator Relationship Specialty Start Date End Date Juan José Kendall MD [address] [place] [address] [place] [address] PCP - General Family Medicine 12/25/22 Juan José Kendall MD [address] [place] [address] [place] [phone] Referring Physician Family Medicine 12/25/22 documented as of this encounter
--- OUTSIDE RECORDS SUMMARY | 2024-03-11 09:22 | XMS_ITS | Encounter Summary ---
Author Organization [employer] Address [address] [place] [address] Care Team Providers Care Supervisor [employer] Name Role Phone Jaun José Kendall MD Primary Care Provider +- [phone] Juan José Kendall MD Unavailable [phone] Encounter Details Date Type Department Care Team (Late st Contact Info) Description 09/05/2018 Transcribed Document [facility] [place] [facility] [place] [address] ProviderLaurie MD [address] [place] [address] Social History Tobacco Use Types Packs/Day Years Used Date Smoking Tobacco: Never Assessed Comments Unknown Sex and Gender Information Value Date Recorded Sex Assigned at Not on file Legal Sex Female 2:23 PM CDT Gender Identity Not on file Sexual Orientation Not on file documented as of this encounter Miscellaneous Notes * Cerner Conversion Note - Historical ProviderMD - 09/05/2018 5:36 PM CDT Patient: TRUDI BLAIR Age: 63 years Sex: Female : 1955 Associated Diagnoses: None Author: AMRTIA BARNARD MD Reason for Consultation: MRSA septicemia, [...] She was more recently admitted to [facility] x2 earlier this month on 08/16 and [...] redness or tenderness at groshong cath site. ROS: as above Medications by Classification Antimicrobials DAPTOmycin + Sodium Chloride 0.9% intravenous solution 50 mL - 700 mg, IV Piggyback, [id number], infuse over 30 Minute(s) Cardiovascular metoprolol (Lopressor) - 25 mg, Oral, [...] Oral, Liquid, Daily, PRN for Constipation, Routine sodium bicarbonate (sodium bicarbonate 650 mg oral tablet) - 650 mg 1 Tab, Oral, Tab, TID, Routine bisacodyl (Dulcolax Laxative) - 10 mg, [...] Cap, At Bedtime, PRN for Sleep, Routine Vitamins calcium gluconate - 1 Gram [...] - 25 Gram 100 mL, IV Piggyback, Q12H, Administer over 1 Hour(s), order duration: 2 Time(s), Routine Allergies (1) Active Reaction Biaxin Acid reflux Vitals Signs (last 24 hrs) Last Charted Minimum Maximum Temp 98.3 (SEP 05 06:15) 98 (SEP 04 18:20) 98 (SEP 04 18:20) Apical HR L 58 (SEP 05 08:30) L 58 (SEP 05 08:30) L 58 (SEP 05 08:30) Mon HR 58 (SEP 05 06:15) 58 (SEP 05 06:15) 84 (SEP 04 18:20) Resp Rate 16 (SEP 05 06:15) 16 (SEP 04 18:20) 16 (SEP 04 18:20) SBP 128 (SEP 05 06:15) 128 (SEP 05 06:15) 138 (SEP 04 18:20) DBP 60 (SEP 05 06:15) L 58 (SEP 05 02:15) 61 (SEP 04 18:20) MAP 76 (SEP 05 06:15) 72 (SEP 05 02:15) 76 (SEP 05 06:15) SpO2 96 (SEP 05 06:15) 96 (SEP 04 18:20) 98 (SEP 05 02:15) Gen: NAD. morbid obesity. pleasant HEENT: PERRL [...] affect Labs (Last four charted values) WBC 6.6 (SEP 05) 6.7 (SEP 04) 7.6 (SEP 03) H 13.4 (SEPTEMBER 01) HB L 7.8 (SEP 05) L 7.7 (SEP 04) L 8.1 (SEP 03) L 6.5 (SEPTEMBER 02) HCT L 24.9 (SEP 05) L 24.2 (SEP 04) L 24.9 (SEP 03) L 19.9 (SEPTEMBER 02) Plt 222 (SEP 05) 170 (SEP 04) L 162 (SEP 03) 188 (SEPTEMBER 01) Na 143 (SEP 05) 146 (SEP 04) 144 (SEP 03) 146 (SEPTEMBER 02) K L 3.2 (SEP 05) L 3.2 (SEP 05) L 3.1 (SEP 04) L 3.2 (SEP 04) Cl 111 (SEP 05) H 114 (SEP 02) H 114 (SEP 03) H 115 (SEPTEMBER 02) CO2 23 (SEP 05) 23 (SEP 04) 23 (SEP 03) 22 (SEPTEMBER 02) BUN H 26 (SEP 05) H 28 (SEP 04) H 31 (SEP 03) H 36 (SEPTEMBER 02) Cr H 1.87 (SEP 03) H 1.90 (SEP 02) H 1.95 (SEP 03) H 2.06 (SEPTEMBER 02) Glu R 91 (SEP 05) 94 (SEP 02) 84 (SEP 03) 98 (SEPTEMBER 02) Ca L 7.7 (SEP 05) L 7.6 (SEP 04) L 6.9 (SEP 03) L 7.2 (SEPTEMBER 02) Lactic 1.5 (AUGUST 30) PT 10.8 (AUGUST 30) INR 1.0 (AUGUST 30) PTT H 40.2 (AUGUST 30) AST 9 (SEP 05) 13 (SEP 04) 14 (SEP 03) 33 (SEPTEMBER 01) ALT L 10 (SEP 05) L 9 (SEP 04) L 11 (SEP 03) 18 (SEPTEMBER 01) ALK P 60 (SEP 05) 57 (SEP 04) 60 (SEP 03) 57 (SEPTEMBER 01) T Bili 0.5 (SEP 05) 0.4 (SEP 04) 0.4 (SEP 03) 0.3 (SEPTEMBER 01) PTN L 4.6 (SEP 05) L 4.2 (SEP 04) L 4.1 (SEP 03) L 3.8 (SEPTEMBER 01) ALB L 2.3 (SEP 05) L 2.0 (SEP 04) L 1.7 (SEP 03) L 1.3 (SEPTEMBER 01) Creatinine Clearance (Current Encounter/Past 24 Hours) Creatinine Level 1.87 mg/dL HI 09/05/2018 05:12 Bun/Creatinine 13.9 09/05/2018 05:12 Estimated Creatinine Clearance 28.45 mL/Min 09/05/2018 05:12 Micro: OSH micro results (per records provided [...] removal 08/31. s/p groshong cath placement Plan: f/u blood cultures now s/p WANDA on 08/31/[address] Marie. f/u cultures from left knee wound care continue to closely monitor cbc with diff [...] discharge ( unless she is discharged to [facility] rehabilitation and she can be followed by one of my partners there). clinic to call the patient with appointment instructions. 5. Could switch the patient to OPAT through [facility] when she is discharged from rehabilitation facility. 6. attention triage staff at [facility]: Please track the patient's cultures from her left knee 7. please fax copy of this note a [phone] ok to discharge to rehab whenever from my standpoint complex set of medical issues requiring a high level of medical decision making. Patient has risk for further morbidity including loss of her limb. Electronically signed by [facility] Conversion Casing Builder Cerner at 07/24/2022 3:34 PM CDT documented in this encounter Plan of Treatment Not on file documented as of this encounter Visit Diagnoses Not on filedocumented in this encounter Care Teams Supervisor [employer] Res[employer]ations Relationship Specialty Start Date End Date Juan José Kendall MD [address] [facility] [address] [place] [address] PCP - General Family Medicine 12/25/22 Juan José Kendall MD [address] [facility] [address] [place] [address] Referring Physician Family Medicine 12/25/22 documented as of this encounter
--- OUTSIDE RECORDS SUMMARY | 2024-03-11 09:22 | XMS_ITS | Encounter Summary ---
Author Organization [employer] Address [address] [place] [address] Care Team Providers Care Grinder Set Up Operator Name Role Phone Juan José Kendall MD Primary Care Provider +- [phone] Juan José Kendall MD Unavailable [phone] Encounter Details Date Type Department Care Team (Late st Contact Info) Description 08/31/2018 Transcribed Document [facility] [place] [facility] [place] [address] ProviderLaurie MD [address] [place] [address] Social History Tobacco Use Types Packs/Day Years Used Date Smoking Tobacco: Never Assessed Comments Unknown Sex and Gender Information Value Date Recorded Sex Assigned at Not on file Legal Sex Female 2:23 PM CDT Gender Identity Not on file Sexual Orientation Not on file documented as of this encounter Miscellaneous Notes * Cerner Conversion Note - Laurie ProviderMD - 08/31/2018 8:02 AM CDT Patient: TRUDI BLAIR Age: 63 years Sex: Female : 1955 Associated Diagnoses: None Author: LINDA MARQUEZ MD-[facility] Subjective Objective VS/Measurements Vitals Signs (last 24 hrs) Last Charted Minimum Maximum Temp 98.2 (AUGUST 31 04:00) 97.6 (AUGUST 30 15:00) 98.2 (AUGUST 31 04:00) Mon HR 63 (AUGUST 31 04:00) 63 (AUGUST 31 04:00) 82 (AUGUST 30 15:00) Resp Rate 16 (AUGUST 31 04:00) 16 (AUGUST 30 15:00) 16 (AUGUST 30 15:00) SBP 106 (AUGUST 31 04:00) 106 (AUGUST 31 04:00) 123 (AUGUST 30 15:00) DBP L 41 (AUGUST 31 04:00) L 41 (AUGUST 31 04:00) L 57 (AUGUST 30 15:00) MAP 57 (AUGUST 31 04:00) 57 (AUGUST 31 04:00) 78 (AUGUST 30 14:37) SpO2 96 (AUGUST 31 04:00) 96 (AUGUST 31 04:00) 99 (AUGUST 30 14:37) Intake & Output Totals Last 24 Hours (7a-7a) Intake (6 Events) Medications (567 mL) Output (1 Events) Bazan Catheter (850 mL) Input Total: 567 mL Output Total: 850 mL Balance: -283 mL Results Review Labs (Last four charted values) WBC 5.3 (AUGUST 31) HB L 7.8 (AUGUST 31) HCT L 24.5 (AUGUST 31) Plt L 161 (AUGUST 31) Na 145 (AUGUST 31) 145 (AUGUST 30) K 3.7 (AUGUST 31) 3.8 (AUGUST 30) Cl 112 (AUGUST 31) H 113 (AUGUST 30) CO2 22 (AUGUST 31) 24 (AUGUST 30) BUN H 32 (AUGUST 31) H 36 (AUGUST 30) Cr H 2.31 (AUGUST 31) H 2.43 (AUGUST 30) Glu R 93 (AUGUST 31) 100 (AUGUST 30) Ca L 7.2 (AUGUST 31) L 7.6 (AUGUST 30) Lactic 1.5 (AUGUST 30) PT 10.8 (AUGUST 30) INR 1.0 (AUGUST 30) PTT H 40.2 (AUGUST 30) AST H 42 (AUGUST 31) H 39 (AUGUST 30) ALT 19 (AUGUST 31) 16 (AUGUST 30) ALK P 72 (AUGUST 31) 69 (AUGUST 30) T Bili 0.3 (AUGUST 31) 0.2 (AUGUST 30) PTN L 4.4 (AUGUST 31) L 4.4 (AUGUST 30) ALB L 1.4 (AUGUST 31) L 1.5 (AUGUST 30) Impression and Plan ARF: Cr slightly better than on admit with nonoliguric UOP after IVF. Cr was intially elevated to 2.4 on admit from [facility] 0.9 06/2018. pt with multiple admssion to outside hosptial. transferred here with multiple infections, hypotension, multiple abx. Pharmacy doseing vanc. avoid vanc toxicity. HTN: BP low side. w ill cut back on metoprolol. Anemia: transfuse PRN for Hgb < 7. Multiple infections: ID evaluating high risk and complexity pt #[id number] Electronically signed by lAeks, [facility] Conversion Biopsychologist Cerner at 07/24/2022 3:55 PM CDT documented in this encounter Plan of Treatment Not on file documented as of this encounter Visit Diagnoses Not on filedocumented in this encounter Care Teams Grinder Set Up Operator Relationship Specialty Start Date [...]
--- OUTSIDE RECORDS SUMMARY | 2024-03-11 09:22 | XMS_ITS | Encounter Summary ---
Author Organization [employer] Address [address] [place] [address] Care Team Providers Care Histologic Aide Name Role Phone Juan José Kendall MD Primary Care Provider +- [phone] Juan José Kendall MD Unavailable [phone] Encounter Details Date Type Department Care Team (Late st Contact Info) Description 08/31/2018 Transcribed Document [facility] [place] [address] ProviderLaurie MD [address] [place], [place] [id number] Social History Tobacco Use Types Packs/Day Years Used Date Smoking Tobacco: Never Assessed Comments Unknown Sex and Gender Information Value Date Recorded Sex Assigned at Not on file Legal Sex Female 2:23 PM CDT Gender Identity Not on file Sexual Orientation Not on file documented as of this encounter Miscellaneous Notes * Cerner Conversion Note - Lauire ProviderMD - 08/31/2018 12:52 PM CDT UM Authorization Entered On: 08/31/2018 12:53 EDT Performed On: 08/31/2018 12:52 EDT by Inder Cowan Mkt Grease Maker Head-Utilization Mgt Primary Insurance Authorization Authorization and Policy Numbers : Insurance 1 Health Plan: ANTHEM HMOPPO Policy Number: Authorization Number: Insurance 2 Health Plan: MEDICARE Policy Number: [id number] Authorization Number: Insurance Primary Name : Luz MMGrecia Authorization Status-Primary : Admit approved Authorization Number-Primary : [id number] Number of Days Authorized-Primary : DRG Authorization Comments-Primary : Per Availity site (referred to different section than normal), inpt admission approved. Auth noted. Will need d/c date called. Historical Authorization Comments-Primary : No Authorization Comments Found Inder Cowan Mkt Grease Maker Head-Utilization Mgt - 08/31/2018 12:52 EDT Electronically signed by [facility] Conversion Quality Systems Technician Cerner at 07/24/2022 3:54 PM CDT documented in this encounter Plan of Treatment Not on file documented as of this encounter Visit Diagnoses Not on filedocumented in this encounter Care Teams Histologic Aide Relationship Specialty Start Date End Date Juan José Kendall MD [address] [facility] [address] [place] [address] PCP - General Family Medicine 12/25/22 Juan José Kendall MD [address] [facility] [address] [place] [address] Referring Physician Family Medicine 12/25/22 documented as of this encounter
--- OUTSIDE RECORDS SUMMARY | 2024-03-11 09:22 | XMS_ITS | Encounter Summary ---
Author Organization [employer] Address [address] [place] [address] Care Team Providers Care Linux Unix Administrator Name Role Phone Juan José Kendall MD Primary Care Provider + [phone] Juan José Kendall MD Unavailable [phone] Encounter Details Date Type Department Care Team (Late st Contact Info) Description 09/04/2018 Transcribed Document [facility] [place] [facility] [place] [address] ProviderLaurie MD [address] [place] [address] Social History Tobacco Use Types Packs/Day Years Used Date Smoking Tobacco: Never Assessed Comments Unknown Sex and Gender Information Value Date Recorded Sex Assigned at Not on file Legal Sex Female 2:23 PM CDT Gender Identity Not on file Sexual Orientation Not on file documented as of this encounter Miscellaneous Notes * Cerner Conversion Note - Laurie ProviderMD - 09/04/2018 5:19 PM CDT Patient: TRUDI BLAIR Age: 63 years Sex: Female : 1955 Associated Diagnoses: None Author: SANDEE QURESHI MD-NEP Subjective No new complaints. Stable overnight. Denies N/VCP, SOB. Pt reports edema better. Creatinine better Objective VS/Measurements Vitals Signs (last 24 hrs) Last Charted Minimum Maximum Temp 97.9 (SEP 04 14:05) 97.9 (SEP 04 14:05) 98.2 (SEP 03 18:15) Mon HR 75 (SEP 04 14:05) 65 (SEP 04 06:02) 95 (SEP 03 18:15) Resp Rate 16 (SEP 04 14:05) 15 (SEP 04 06:02) 17 (SEP 04 01:46) SBP 128 (SEP 04 14:05) 120 (SEP 03 22:00) 139 (SEP 04 01:46) DBP 63 (SEP 04 14:05) L 46 (SEP 04 06:02) 63 (SEP 04 14:05) MAP 65 (SEP 04 06:02) 64 (SEP 03 22:00) 70 (SEP 04 01:46) SpO2 95 (SEP 04 14:05) 95 (SEP 04 14:05) 98 (SEP 04 01:46) Intake & Output Totals Last 24 Hours (7a-7a) Intake (8 Events) Medications (173 mL) Oral Intake (30 mL) Output (4 Events) Parekh Catheter (1775 mL) Input Total: 203 mL Output Total: 1775 mL Balance: -1572 mL General: Alert and oriented, No acute distress, WDWF. Eye: Extraocular movements are intact, PER. HENT: Normocephalic, Oral mucosa is moist. Neck: Supple, No jugular venous distention. Respiratory: Respirations are non-labored, Symmetrical chest wall expansion. Cardiovascular: Normal rate, + ansarca, Pitting and Non pittting edema. Gastrointestinal: Soft, Non-distended, Normal bowel sounds, obese. Genitourinary: + parekh. Integumentary: Warm, Dry. Psychiatric: Cooperative, Appropriate mood & affect, Normal judgment. Results Review Labs (Last four charted values) WBC 6.7 (SEP 04) 7.6 (SEP 03) H 13.4 (SEPTEMBER 01) 5.3 (AUGUST 31) HB L 7.7 (SEP 04) L 8.1 (SEP 03) L 6.5 (SEPTEMBER 02) L 6.6 (SEPTEMBER 02) HCT L 24.2 (SEP 04) L 24.9 (SEP 03) L 19.9 (SEPTEMBER 02) L 20.7 (SEPTEMBER 02) Plt 170 (SEP 04) L 162 (SEP 03) 188 (SEPTEMBER 01) L 161 (AUGUST 31) Na 146 (SEP 04) 144 (SEP 03) 146 (SEPTEMBER 02) 143 (SEPTEMBER 01) K L 3.2 (SEP 04) 3.6 (SEP 03) 3.6 (SEPTEMBER 02) 4.4 (SEPTEMBER 01) Cl H 114 (SEP 04) H 114 (SEP 03) H 115 (SEPTEMBER 02) H 115 (SEPTEMBER 01) CO2 23 (SEP 04) 23 (SEP 03) 22 (SEPTEMBER 02) L 18 (SEPTEMBER 01) BUN H 28 (SEP 04) H 31 (SEP 03) H 36 (SEPTEMBER 02) H 33 (SEPTEMBER 01) Cr H 1.90 (SEP 04) H 1.95 (SEP 03) H 2.06 (SEPTEMBER 02) H 2.11 (SEPTEMBER 01) Glu R 94 (SEP 04) 84 (SEP 03) 98 (SEPTEMBER 02) H 126 (SEPTEMBER 01) Ca L 7.6 (SEP 04) L 6.9 (SEP 03) L 7.2 (SEPTEMBER 02) L 6.8 (SEPTEMBER 01) Lactic 1.5 (AUGUST 30) PT 10.8 (AUGUST 30) INR 1.0 (AUGUST 30) PTT H 40.2 (AUGUST 30) AST 13 (SEP 04) 14 (SEP 03) 33 (SEPTEMBER 01) H 42 (AUGUST 31) ALT L 9 (SEP 04) L 11 (SEP 03) 18 (SEPTEMBER 01) 19 (AUGUST 31) ALK P 57 (SEP 04) 60 (SEP 03) 57 (SEPTEMBER 01) 72 (AUGUST 31) T Bili 0.4 (SEP 04) 0.4 (SEP 03) 0.3 (SEPTEMBER 01) 0.3 (AUGUST 31) PTN L 4.2 (SEP 04) L 4.1 (SEP 03) L 3.8 (SEPTEMBER 01) L 4.4 (AUGUST 31) ALB L 2.0 (SEP 04) L 1.7 (SEP 03) L 1.3 (SEPTEMBER 01) L 1.4 (AUGUST 31) Impression and Plan ARF: Cr continues to slowly improve, down to 1.9 today. UOP non-oliguric. baseline Cr of 0.9 on 06/2018. Transferred here with multiple infections, hypotension, multiple abx use. Pharmacy dosing Vanc. Avoid Vanc toxicity. Avoid nephrotoxins. Renally dose medications for Crcl. HTN: BP still on the low side. May support BP with IV albumin PRN. Anemia: Hgb dropped significantly to 5.0. ? cause. Ordered for 2 units PRBC's. Transfuse PRN for Hgb < 7. Met acidosis: Better at 22. Continue with po bicarb for now. Edema: Component of third spacing with very low oncitic pressure and IVF. Given albumin to help mobilize fluids. May give Bumex once BP back up to 120's. S/P Knee surgery for exploration of hardware due to infection. Multiple infections: ID evaluating. Getting abx. High risk and complex pt add diuretics and iv albumin ordered case discussed with in room documented in this encounter Plan of Treatment Not on file documented as of this encounter Visit Diagnoses Not on filedocumented in this encounter Care Teams Linux Unix Administrator Relationship Specialty Start Date End Date Juan José Kendall MD [address] [facility] [address] [place] [address] PCP - General Family Medicine 12/25/22 Juan José Kendall MD [address] [place] [address] Referring Physician Family Medicine 12/25/22 documented as of this encounter
--- OUTSIDE RECORDS SUMMARY | 2024-03-11 09:22 | XMS_ITS | Encounter Summary ---
Author Organization [employer] Address [address] [place] [address] Care Team Providers Care Studio Musician Name Role Phone Juan José Kendall MD Primary Care Provider + [phone] Juan José Kendall MD Unavailable [phone] Encounter Details Date Type Department Care Team (Late st Contact Info) Description 09/04/2018 Transcribed Document [facility] [place] [address] ProviderLaurie MD [address] [place] [address] Social History Tobacco Use Types Packs/Day Years Used Date Smoking Tobacco: Never Assessed Comments Unknown Sex and Gender Information Value Date Recorded Sex Assigned at Not on file Legal Sex Female 2:23 PM CDT Gender Identity Not on file Sexual Orientation Not on file documented as of this encounter Miscellaneous Notes * Cerner Conversion Note - Historical ProviderMD - 09/04/2018 4:00 PM CDT Patch Check Entered On: 09/04/2018 16:40 EDT Performed On: 09/04/2018 16:00 EDT by Janae Alonso Rn Patch Check Patch Check Result : Yes Patch Check - Type of Patch : scopolamine (Transderm-Scop) Patch Check - Location : See Comments Patch Check Comments : behind left ear Janae Alonso Rn - 09/04/2018 16:39 EDT Electronically signed by Aleks [facility] Conversion Bindery Machine Tender Cerner at 07/24/2022 3:52 PM CDT documented in this encounter Plan of Treatment Not on file documented as of this encounter Visit Diagnoses Not on filedocumented in this encounter Care Teams Studio Musician Relationship Specialty Start Date End Date Juan José Kendall MD [address] [facility] [address] [place] [address] PCP - General Family Medicine 12/25/22 Juan José Kendall MD [address] [place] [facility] [address] [place] [address] Referring Physician Family Medicine 12/25/22 documented as of this encounter
--- OUTSIDE RECORDS SUMMARY | 2024-03-11 09:22 | XMS_ITS | Encounter Summary ---
Author Organization [employer] Address [address] [place] [address] Care Team Providers Care Instructor Extension Work Name Role Phone Juan José Kendall MD Primary Care Provider +- [phone] Juan José Kendall MD Unavailable [phone] Encounter Details Date Type Department Care Team (Late st Contact Info) Description 09/01/2018 Transcribed Document [facility] [place] [address] ProviderLaurie MD [address] [place] [address] [id number] Social History Tobacco Use Types Packs/Day Years Used Date Smoking Tobacco: Never Assessed Comments Unknown Sex and Gender Information Value Date Recorded Sex Assigned at Not on file Legal Sex Female 2:23 PM CDT Gender Identity Not on file Sexual Orientation Not on file documented as of this encounter Miscellaneous Notes * Cerner Conversion Note - Historical ProviderMD - 09/01/2018 5:34 PM CDT Patient: TRUDI BLAIR Age: [...] getting wound care. She was transferred to [facility] today for a higher level of care. [...] improving. no diarrhea, nausea, or new rash. ROS: as above Medications by Classification Antimicrobials cefTRIAXone + Sodium Chloride 0.9% intravenous solution 50 m - 2 Gram, IV Piggyback, [id number], infuse over 30 Minute(s), Routine DAPTOmycin + Sodium Chloride 0.9% intravenous solution 50 mL - 700 mg, IV Piggyback, [id number], infuse over 30 Minute(s) Cardiovascular metoprolol (Lopressor) [...] (sodium bicarbonate 650 mg oral tablet) - 1,300 mg 2 Tab, Oral, Tab, TID, Routine bisacodyl (Dulcolax [...] Q6H, Administer over 1 Hour(s), order duration: 2 Time(s), Routine Allergies (1) Active Reaction Biaxin Acid reflux Vitals Signs (last 24 hrs) Last Charted Minimum Maximum Temp 98.4 (SEPTEMBER 01 15:37) 97.0 (AUGUST 31 18:00) 98.4 (SEPTEMBER 01:37) Apical HR H 104 (SEPTEMBER 01 12:01) H 104 (SEPTEMBER 01 12:01) H 104 (SEPTEMBER 01 12:) Mon HR 89 (SEPTEMBER 01 15:37) 83 (AUGUST 31 17:47) 105 (AUGUST 31 23:30) Resp Rate 18 (SEPTEMBER 01 15:37) 14 (AUGUST 31 18:08) 20 (AUGUST 31 17:37) SBP 92 (SEPTEMBER 01 15:37) 92 (SEPTEMBER 01 15:37) 113 (AUGUST 31 17:42) DBP L 41 (SEPTEMBER 01:37) L 41 (SEPTEMBER 01 15:37) 69 (AUGUST 31 23:30) MAP 52 (SEPTEMBER 01 15:37) 52 (SEPTEMBER 01 15:37) 82 (AUGUST 31 18:24) SpO2 98 (SEPTEMBER 01:37) 94 (AUGUST 31 17:37) 99 (SEPTEMBER 01 01:06) Gen: NAD. morbid obesity. pleasant HEENT: PERRL anicteric. no conjunctival hemorrhages. no thrush Neck: supple. no meningismus LAD: no cervical or axillary lymphadenopathy Chest: no chest wall deformities Pulm: CTAB. non-labored breathing on room air CV: RRR. no m/r/g. no peripheral edema Abd: obese abdomen. soft. non-tender, non-distended. normal bowel sounds. no HSM : no parekh catheter present MSK: left leg in partial cast/surgical dressings (has been since 06/21 operation per patient). unable to visualize left knee due to dressings. unstageable wound noted just above left knee with packing and some mild bloody drainage, no surrounding erythema. no effusion noted over right knee. Skin: no rash noted over exposed skin. no signs of embolic phenomena. LUE PICC line site is without any erythema or induration Neuro: AAOX4. normal speech. Psych: cooperative. normal mood and affect Labs (Last four charted values) WBC H 13.4 (SEPTEMBER 01) 5.3 (AUGUST 31) HB L 7.9 (SEPTEMBER 01) L 10.0 (AUGUST 31) L 7.8 (AUGUST 31) HCT L 25.1 (SEPTEMBER 01) L 31.0 (AUGUST 31) L 24.5 (AUGUST 31) Plt 188 (SEPTEMBER 01) L 161 (AUGUST 31) Na 143 (SEPTEMBER 01) 145 (AUGUST 31) 145 (AUGUST 30) K 4.4 (SEPTEMBER 01) 3.7 (AUGUST 31) 3.8 (AUGUST 30) Cl H 115 (SEPTEMBER 01) 112 (AUGUST 31) H 113 (AUGUST 30) CO2 L 18 (SEPTEMBER 01) 22 (AUGUST 31) 24 (AUGUST 30) BUN H 33 (SEPTEMBER 01) H 32 (AUGUST 31) H 36 (AUGUST 30) Cr H 2.11 (SEPTEMBER 01) H 2.31 (AUGUST 31) H 2.43 (AUGUST 30) Glu R H 126 (SEPTEMBER 01) 93 (AUGUST 31) 100 (AUGUST 30) Ca L 6.8 (SEPTEMBER 01) L 7.2 (AUGUST 31) L 7.6 (AUGUST 30) Lactic 1.5 (AUGUST 30) PT 10.8 (AUGUST 30) INR 1.0 (AUGUST 30) PTT H 40.2 (AUGUST 30) AST 33 (SEPTEMBER 01) H 42 (AUGUST 31) H 39 (AUGUST 30) ALT 18 (SEPTEMBER 01) 19 (AUGUST 31) 16 (AUGUST 30) ALK P 57 (SEPTEMBER 01) 72 (AUGUST 31) 69 (AUGUST 30) T Bili 0.3 (SEPTEMBER 01) 0.3 (AUGUST 31) 0.2 (AUGUST 30) PTN L 3.8 (SEPTEMBER 01) L 4.4 (AUGUST 31) L 4.4 (AUGUST 30) ALB L 1.3 (SEPTEMBER 01) L 1.4 (AUGUST 31) L 1.5 (AUGUST 30) Creatinine Clearance (Current Encounter/Past 24 Hours) Creatinine Level 2.11 mg/dL GA 09/01/2018 04:39 Bun/Creatinine 15.6 09/01/2018 04:39 Estimated Creatinine Clearance 25.22 mL/Min 09/01/2018 04:39 Micro: OSH micro results (per records provided in chart): 08/10 blood culture: MRSA (Vanc CATHY=1) 08/10 urine cx: enterococcus faecalis 08/10 wound culture: MRSA, staph epi 08/19 blood cx: staph hominis 08/19 blood cx: enterococcus faecalis, vanc-S SJE micro results: 08/30/18 blood culture x 2: ngtd Radiology Results (Last 48 hours) [id number] -- 08/30/2018 14:25 CR Chest 1 Vw (08/30/2018 18:02) Result: PORTABLE CHEST 08/30/2018 3:16 PMHISTORY: Preoperative respiratory clearanceCOMPARISON: June 23, 2018FINDINGS: The left-sided PICC line tip terminates in the SVC. Theretrocardiac opacity is consistent with hiatal hernia and is unchanged.The cardiac silhouette is normal in size. The aortic contours arenormal. The mediastinal and hilar structures are unremarkable. There thomas left basilar opacity, likely atelectasis. There is no pneumothorax.The osseous structures are unremarkable . IMPRESSION: Left basilar opacity, likely atelectasis. Images reviewed, interpreted, and dictated by Dr. Irina Grande.Transcribed by Torey Patel PA-C.I have personally viewed, interpreted and dictated the examination. Ihave read and agree with the above final transcribed report. US Veins LE Duplex LTD (08/31/2018 09:12) Result: LEFT LOWER EXTREMITY VENOUS DUPLEX DOPPLER EXAMINATIONHISTORY: Left Lower extremity swelling .PROCEDURE: Multiple transverse and longitudinal scans were performed ofthe femoropopliteal deep venous system, with augmentation andcompression maneuvers.FINDINGS: The common femoral vein, femoral vein, profunda vein,popliteal vein, peroneal vein, greater saphenous veins are normal. Thereis thrombosis of the posterior tibial vein.IMPRESSION: Calf thrombosis as above.ADEEL was notified of the findings at the time of the examination. US Renal Comp (08/31/2018 09:16) Result: RENAL ULTRASOUNDHISTORY: Renal failure .PROCEDURE: Ultrasound images of the kidneys were obtained.FINDINGS: Limited images of the liver parenchyma demonstrate normal echogenicity . The right kidney measures 10 cm in length. It is normal echogenicity . There is no hydronephrosis . The left kidney measures 10 cm in length. It is normal echogenicity . There is no hydronephrosis . IMPRESSION: Normal renal ultrasound . CR Knee 1 or 2 Vws LT (08/31/2018 17:56) Result: LEFT KNEE SERIESHISTORY: Postoperative.COMPARISON: June 2018FINDINGS: A 2 view exam was obtained. Status post explantation andspacer placement. Patella also noted. Expected postoperative changes arenoted. Detail is limited from overlying cast or bandage. IMPRESSION: Postoperative changes as above. XA CVC Tunneled WO Pump/Port (09/01/2018 16:59) Result: RTUDI ELLIS: 1955TUNNELED CENTRAL VENOUS CATHETER PLACEMENTHISTORY: Wound infectionINDICATION: Need for long-term antibioticsRADIATION EXPOSURE TIME: 2 min. IMAGES: 1 spot images were performed. PROCEDURAL SEDATION: 2 mg of IV Versed and 50 mcg of fentanyl wereadministered. Continuous vital sign monitoring was used. An RN waspresent during the sedation process. Overall sedation time was 30minutes.PROPHYLACTIC ANTIBIOTIC: The patient was receiving routine and vomitingon the floor which covered this procedure.PROCEDURE: The procedure, risks and benefits were explained to thepatient. Written and informed consent was obtained. The right neck wasprepped and draped in the usual sterile manner. The vein was visualizedwith ultrasound. The patency of this vein was confirmed and documentedwith imaging placed in the patient's record. The procedure was performedusing all elements of maximum sterile barrier technique. All activeoperators wore a head cover, mask, sterile gown, and sterile gloves.Other nonsterile participants wore a head cover and mask. The operativesite was prepped and draped in the usual sterile manner with 2%chlorhexidine. The area was covered with a large sterile drape. The right internal jugular vein was then visualized with ultrasoundutilizing a sterile probe cover and sterile ultrasound. The skinoverlying the vein was anesthetized with 1% lidocaine. Access was gainedto the right internal jugular vein with a 21-gauge micropuncture setunder direct ultrasound guidance. An 0.035-inch guidewire was thenplaced into the inferior vena cava under fluoroscopic guidance. Asubcutaneous tunnel was created from the anterior chest wall toward thevenotomy site. The catheter was tunneled through the subcutaneoustissues. The venotomy site was serially dilated. The catheter wasinserted through the peel-away sheath and positioned at the cavoatrialjunction under fluoroscopy. The peel-away sheath was then removed. Thecatheter demonstrated good function and flow. The venotomy site wasclosed with chromic suture. The catheter was sutured into place withmonofilament suture. The catheter was then heparinized per themanufacturer's instruction.IMPRESSION: Successful placement of a tunneled power Dumont cathetervia the right internal jugular vein under ultrasound and fluoroscopicguidance. No complications.THANK YOU FOR ALLOWING US TO PARTICIPATE IN THE CARE OF YOUR PATIENT. Impression: -MRSA septicemia- grew from 08/10 blood cultures and was likely associate with right leg wound and possibly infected prosthetic knee (although no culture data that I have seen from her knee) -enteroccocus UTI and septicemia- vanc sensitive enterococus [...] from sepsis. improving. nephrology following -morbidy obesity --Anemia --infected PICC line- s/p PICC removal 08/31. plans for groshong cath placement Plan: f/u blood cultures now s/p WANDA on 08/31/[address] Marie. f/u cultures from left knee wound care continue to closely monitor cbc with diff and cmp obtain TTE. can probably hold off on AJ as it appears that MRSA only grew from 1 blood culture set and we have a source - TTE pending continue daptomycin continue ceftriaxone groshong cath placement today She will need at least 6 weeks of IV antibiotics from the date of WANDA. Anticipated stop date is 10/05/18. Possibly to rehab soon. May have final antibiotic recommendations tomorrow. [facility] may be a good option for the patient as ID could follow her there. She can do OPAT through [facility] whenever she is discharged from rehab. complex set of medical issues requiring a high level of medical decision making. Patient has risk for further morbidity including loss of her limb. I discussed with her today Electronically signed by Aleks, [facility] Conversion Supervisory Air Intercept Controller Cerner at 07/24/2022 3:52 PM CDT documented in this encounter Plan of Treatment Not on file documented as of this encounter Visit Diagnoses Not on filedocumented in this encounter Care Teams Instructor Extension Work Relationship Specialty Start Date End Date Juan José Kendall MD [address] [facility] [address] [place] [id number] PCP - General Family Medicine 12/25/22 Juan José Kendall MD [address] [facility] [address] [place] [phone] Referring Physician Family Medicine 12/25/22 documented as of this encounter
--- OUTSIDE RECORDS SUMMARY | 2024-03-11 09:22 | XMS_ITS | Encounter Summary ---
Author Organization [employer] Address [address] [place] [id number] Care Team Providers Care Shearing Shed Worker Name Role Phone Juan José Kendall MD Primary Care Provider + [phone] Juan José Kendall MD Unavailable [phone] Encounter Details Date Type Department Care Team (Late st Contact Info) Description 09/02/2018 Transcribed Document [facility] [place] [address] ProviderLaurie MD [address] [place] [id number] Social History Tobacco Use Types Packs/Day Years Used Date Smoking Tobacco: Never Assessed Comments Unknown Sex and Gender Information Value Date Recorded Sex Assigned at Not on file Legal Sex Female 2:23 PM CDT Gender Identity Not on file Sexual Orientation Not on file documented as of this encounter Miscellaneous Notes * Cerner Conversion Note - Laurie ProviderMD - 09/02/2018 2:14 PM CDT Patient: TRUDI BLAIR Age: 63 years Sex: Female : 1955 Associated Diagnoses: None Author: SANDEE QURESHI MD-NEP Subjective No new complaints. Stable overnight. Denies N/VCP, SOB. Pt reports edema better. Objective VS/Measurements Vitals Signs (last 24 hrs) Last Charted Minimum Maximum Temp 98.4 (SEPTEMBER 02 11:17) 98 (SEPTEMBER 02 09:08) 98.4 (SEPTEMBER 01 15:37) Mon HR 81 (SEPTEMBER 02 11:17) 81 (SEPTEMBER 02 11:17) 104 (SEPTEMBER 01:29) Resp Rate 16 (SEPTEMBER 02 11:17) 16 (SEPTEMBER 02 10:38) 18 (SEPTEMBER 01 15:37) SBP 119 (SEPTEMBER 02 11:17) L 89 (SEPTEMBER 01 22:29) 120 (SEPTEMBER 01 18:39) DBP L 49 (SEPTEMBER 02 11:17) L 31 (SEPTEMBER 01 18:39) L 49 (SEPTEMBER 02 11:17) MAP 66 (SEPTEMBER 02 11:17) 46 (SEPTEMBER 01 18:39) 66 (SEPTEMBER 02 11:17) SpO2 99 (SEPTEMBER 02 11:17) 97 (SEPTEMBER 01 18:39) 99 (SEPTEMBER 01:29) Intake & Output Totals Last 24 Hours (7a-7a) Intake (9 Events) Medications (324 mL) Oral Intake (840 mL) Output (3 Events) Parekh Catheter (950 mL) Input Total: 1164 mL Output Total: 950 mL Balance: 214 mL General: Alert and oriented, No acute distress, WDWF. Eye: Normal conjunctiva, PER. HENT: Normocephalic, Oral mucosa is moist. Neck: Supple, No jugular venous distention. Respiratory: Respirations are non-labored, Symmetrical chest wall expansion. Cardiovascular: Normal rate, + ansarca, Pitting and Non pittting edema. Gastrointestinal: Soft, Non-distended, Normal bowel sounds, obese. Genitourinary: + parekh. Integumentary: Warm, Dry, No rash. Neurologic: Alert, Oriented. Psychiatric: Cooperative, Appropriate mood & affect, Normal judgment. Results Review Labs (Last four charted values) WBC H 13.4 (SEPTEMBER 01) 5.3 (AUGUST 31) HB C 5.0 (SEPTEMBER 02) L 7.9 (SEPTEMBER 01) L 10.0 (AUGUST 31) L 7.8 (AUGUST 31) HCT C 15.8 (SEPTEMBER 02) L 25.1 (SEPTEMBER 01) L 31.0 (AUGUST 31) L 24.5 (AUGUST 31) Plt 188 (SEPTEMBER 01) L 161 (AUGUST 31) Na 146 (SEPTEMBER 02) 143 (SEPTEMBER 01) 145 (AUGUST 31) 145 (AUGUST 30) K 3.6 (SEPTEMBER 02) 4.4 (SEPTEMBER 01) 3.7 (AUGUST 31) 3.8 (AUGUST 30) Cl H 115 (SEPTEMBER 02) H 115 (SEPTEMBER 01) 112 (AUGUST 31) H 113 (AUGUST 30) CO2 22 (SEPTEMBER 02) L 18 (SEPTEMBER 01) 22 (AUGUST 31) 24 (AUGUST 30) BUN H 36 (SEPTEMBER 02) H 33 (SEPTEMBER 01) H 32 (AUGUST 31) H 36 (AUGUST 30) Cr H 2.06 (SEPTEMBER 02) H 2.11 (SEPTEMBER 01) H 2.31 (AUGUST 31) H 2.43 (AUGUST 30) Glu R 98 (SEPTEMBER 02) H 126 (SEPTEMBER 01) 93 (AUGUST 31) 100 (AUGUST 30) Ca L 7.2 (SEPTEMBER 02) L 6.8 (SEPTEMBER 01) L 7.2 (AUGUST [...] (AUGUST 30) Impression and Plan ARF: Cr continues to slowly improve, down to 2.06 today. UOP non-oliguric. Cr was intially elevated to 2.4 on admit from baseline Cr of 0.9 on 06/2018. Pt with multiple admssions to outside hosptial. Appears Cr was up to 2.9 on 08/28. Transferred here with multiple infections, hypotension, multiple [...] Getting abx. High risk and complex pt Patient seen, examined, plan formulated and agreed. Electronically signed by Interface, [facility] Conversion Snuff Grinder Cerner at 07/24/2022 3:31 PM CDT documented in this encounter Plan of Treatment Not on file documented as of this encounter Visit Diagnoses Not on filedocumented in this encounter Care Teams Shearing Shed Worker Relationship Specialty Start Date End Date Juan José Kendall MD [address] [place] [email or web address] [address] [place] [phone] PCP - General Family Medicine 12/25/22 Juan José Kendall MD [address] [place] [email or web address] [address] [place] [phone] Referring Physician Family Medicine 12/25/22 documented as of this encounter
--- OUTSIDE RECORDS SUMMARY | 2024-03-11 09:22 | XMS_ITS | Encounter Summary ---
Author Organization [employer] Address [address] [place] [address] Care Team Providers Care Inventory Checker Name Role Phone Juan José Kendall MD Primary Care Provider + [phone] Juan José Kendall MD Unavailable [phone] Encounter Details Date Type Department Care Team (Late st Contact Info) Description 09/01/2018 Transcribed Document [facility] [place] [address] [place] [address] ProviderLaurie MD [address] [place] [address] Social History Tobacco Use Types Packs/Day Years Used Date Smoking Tobacco: Never Assessed Comments Unknown Sex and Gender Information Value Date Recorded Sex Assigned at Not on file Legal Sex Female 2:23 PM CDT Gender Identity Not on file Sexual Orientation Not on file documented as of this encounter Miscellaneous Notes * Cerner Conversion Note - Historical ProviderMD - 09/01/2018 5:00 AM CDT Chart Check - Review Order Profile Entered On: 09/01/2018 7:35 EDT Performed On: 09/01/2018 5:00 EDT by Suzan Zapata RN Chart Check Powerplans Initiated/Discontinued as Appropriate : Yes All Active Orders Reviewed : Yes Suzan Zapata RN - 09/01/2018 7:35 EDT documented in this encounter Plan of Treatment Not on file documented as of this encounter Visit Diagnoses Not on filedocumented in this encounter Care Teams Inventory Checker Relationship Specialty Start Date End Date Juan José Kendall MD [address] [place] [phone] PCP - General Family Medicine 12/25/22 Juan José Kendall MD [address] [place] [phone] Referring Physician Family Medicine 12/25/22 documented as of this encounter
--- OUTSIDE RECORDS SUMMARY | 2024-03-11 09:22 | XMS_ITS | Encounter Summary ---
Author Organization [employer] Address [address] [place] [address] Care Team Providers Care Credit Officer Name Role Phone Juan José Kendall MD Primary Care Provider + [phone] Juan José Kendall MD Unavailable [phone] Encounter Details Date Type Department Care Team (Late st Contact Info) Description 08/31/2018 Transcribed Document [facility] [place] [facility] [place] [address] ProviderLaurie MD [address] [place] [id number] Social History Tobacco Use Types Packs/Day Years Used Date Smoking Tobacco: Never Assessed Comments Unknown Sex and Gender Information Value Date Recorded Sex Assigned at Not on file Legal Sex Female 2:23 PM CDT Gender Identity Not on file Sexual Orientation Not on file documented as of this encounter Miscellaneous Notes * Cerner Conversion Note - Historical ProviderMD - 08/31/2018 12:53 PM CDT DATE OF CONSULTATION: 08/31/2018 REASON FOR CONSULTATION: Elevated creatinine. CHIEF COMPLAINT: Knee pain, multiple infection. HISTORY OF PRESENT ILLNESS: Patient is a 63-year-old white female with a previously normal renal function in June of this year. At that time, patient was here for left patellar tendon rupture repair. The patient was discharged at that time on Celebrex. The patient apparently has had multiple admissions over the past couple of weeks to [facility] for confusion, acute renal failure, found to have MRSA bacteremia, urinary tract infection. Patient was anemic and transfused 2 units of packed red blood cells. On August 28, patient had labs drawn at the outside hospital. Creatinine was 2.9 at that time. Celebrex had been stopped due to an elevated creatinine; however, did not know what the peak creatinine vitale. The patient was transferred here for higher level of care due to patient's very complex condition. Here, creatinine 2.4, down to 2.3 today. Infectious Disease has seen the patient and adjusted antibiotics. The patient is going for surgery today for any hardware removal. Currently, patient denies any chest pain or shortness of breath. Does have pain in the knee. Denies any nausea, vomiting, diarrhea, constipation. Patient does feel quite edematous which she reports had occurred at the previous admission to outside hospital. She did report that improved previously with Lasix, but thinks that her creatinine went up after diuresis. The patient denies any other [id number] NSAIDs. No other complaints at this time. 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 MEDICATION ALLERGIES: BIAXIN. CURRENT MEDICATIONS: See list in chart. SOCIAL HISTORY: No tobacco or alcohol. FAMILY HISTORY: No congenital renal disease. REVIEW OF SYSTEMS: As above, otherwise negative per admission H and P. PHYSICAL EXAMINATION: VITAL SIGNS: Blood pressures are in the 120s/50s, down as low as 100s/40s, sats 96%, heart rate is 49, respirations 16, temperature is 98.2. GENERAL: The patient is a well-developed, obese white female in no apparent distress. PSYCHIATRIC: Patient is awake, alert, oriented x3. Normal mood and affect. EYES: Anicteric. No conjunctivitis. Extraocular muscles are intact. ENT: Oral mucous membrane is dry. Dentition is intact. Hearing is intact. NECK: Supple. No JVD is discernible. Trachea is midline. No palpable thyroid. CARDIOVASCULAR: Regular rate and rhythm, though bradycardic. LOWER EXTREMITIES: With 2+ edema and anasarca diffusely. ABDOMEN: Obese, soft, nontender, nondistended. Bowel sounds present. : Bazan catheter in place. No palpable bladder. SKIN: No rash or lesion noted. No palpable nodules. LABORATORY DATA: White count is 5.3, hemoglobin 7.8, platelets are 161. Sodium 145, potassium 3.7, chloride is 112, bicarb is 22, BUN 32, creatinine 2.3, down from 2.4 on admission. IMAGING: Chest x-ray on admission showed left basilar opacity, likely atelectasis. Renal ultrasound showed right kidney 10 cm, left kidney 10 cm, normal echogenicity and no hydronephrosis, bilateral. Echocardiogram, pending. ASSESSMENT AND PLAN: 1. Acute renal failure. Creatinine slightly better than on admit with nonoliguric urine output after intravenous fluid. Patient with initially elevated 2.5 on admission, was up to 2.9 on previous hospitalization at [facility]. Patient had been on Celebrex for several years. The patient's creatinine appeared to be at baseline 0.9 back in June of this year, though over the past couple weeks, creatinine is elevated with multiple infections, low blood pressure in the setting of nonsteroidal anti-inflammatory drugs. The patient had multiple admissions with confusion, likely sepsis-type symptoms. Currently, patient is on vancomycin. The patient has gone for surgery at this time for hardware explantation. We will monitor renal function closely. We will get urine labs and see if additional records are available. 2. Hypertension. Blood pressure has been on the low side. Cut back on metoprolol. Avoid hypotension. Give albumin as needed to support blood pressure. 3. Anemia. Transfuse p.r.n. for hemoglobin less than 7. 4. Multiple infections. Infectious Disease evaluating. 5. Bradycardia. May need to stop beta-law. 6. Patient is a high risk and complex patient. Thanks for the consult. Vikash Jones M.D. Dict: 08/31/2018 12:53:41 Trans: 08/31/2018 18:59:10 CC1: Vikash Jones M.D. documented in this encounter Plan of Treatment Not on file documented as of this encounter Visit Diagnoses Not on filedocumented in this encounter Care Teams Credit Officer Relationship Specialty Start Date End Date Juan José Kendall MD [address] [facility] [address] [place] [address] PCP - General Family Medicine 12/25/22 Juan José Kendall MD [address] [place] [address] [place] [address] Referring Physician Family Medicine 12/25/22 documented as of this encounter
--- OUTSIDE RECORDS SUMMARY | 2024-03-11 09:22 | XMS_ITS | Encounter Summary ---
Author Organization [employer] Address [address] [place] [address] Care Team Providers Care Conventional Underwriter Name Role Phone Juan José Kendall MD Primary Care Provider [phone] Juan José Kendall MD Unavailable [phone] Encounter Details Date Type Department Care Team (Late st Contact Info) Description 09/01/2018 Transcribed Document [facility] [place] [facility] [place] [address] ProviderLaurie MD [address] [place] [address] [id number] Social History Tobacco Use Types Packs/Day Years Used Date Smoking Tobacco: Never Assessed Comments Unknown Sex and Gender Information Value Date Recorded Sex Assigned at Not on file Legal Sex Female 2:23 PM CDT Gender Identity Not on file Sexual Orientation Not on file documented as of this encounter Miscellaneous Notes * Cerner Conversion Note - Historical ProviderMD - 09/01/2018 11:48 AM CDT Treatment Intervention, PT Entered On: 09/04/2018 12:15 EDT Performed On: 09/04/2018 12:10 EDT by LINDA BEVERLY PT General Information, PT Visit Type, PT : [...] 00:00 Urinary tract infection, site not specified Therapy Diagnosis, PT : reduced mobility Admission Date : 08/30/2018 14:25 Personal Devices : Personal Devices No Devices Recorded Assistive Devices : Assistive Devices No Devices Recorded LINDA BEVERLY PT - 09/04/2018 12:10 EDT General Status Patient Received Status : Supine in bed, Other: IV attached, parekh attached. Treatment Start Time : 09/04/2018 9:45 EDT Patient Left Status : Supine in bed, RN/PCT informed, Family/Visitors at bedside, All needs met and within reach, Other: IV attached, parekh attached. RN/PCT Informed Comment : RN and patient consenting to treatment this date. Treatment End Time : 09/04/2018 10:15 EDT Treatment Time : 30 Minute(s) LINDA BEVERLY PT - 09/04/2018 12:10 EDT Edu Topics Physical Therapy Education Grid Balance Training : Verbalizes understanding Bed Mobility Training : Verbalizes understanding Caregiver Training : Verbalizes understanding Role of Physical Therapy : Verbalizes understanding Safety : Verbalizes understanding LINDA BEVERLY PT - 09/04/2018 12:10 EDT Plan of Care, PT PT Tx Plan/Goals Established w Patient : Yes LINDA BEVERLY PT - 09/04/2018 12:10 EDT Prison Goals Other PT LTG Grid Goal #1 Goal #2 Other : Pt will perform supine to sit with mod x 2 for progression in functional activity tolerance. Pt will perform RLE ther-ex 2 x 10 reps AAROM for improvement in strength/ROM. Date to Meet : 09/09/2018 EDT 09/09/2018 EDT Goal Status : Progressing, continue Progressing, continue LINDA BEVERLY, PT - 09/04/2018 12:10 EDT LINDA BEVERLY PT - 09/04/2018 12:10 EDT Treatment Note Subjective Comment : Patient was pleasant and cooperative with treatment this date, reporting 6/10 pain at rest, RN is aware and patient is already recieved pain meds. Patient's Response to Treatment : No adverse reactions to treatment this date. Additional Objective Information : Patient required mod assist x 1 with increased time for supine to sit with PT providing verbal cues for task sequencing. Patient sat EOB with BUE support with supervision. Patient reports EOB sitting is very fatiguing for her. Patient completed AAROM RLE ankle pumps, long arc quads, and hip flexion marches 1x10. Patient completed EOB scooting with education on head/hips relationship to improve efficiency and cues for task sequencing to promote BUE and RLE functional strength gains. Patient able to scoot approximately 6 inches with supervision and encouragement over 13 minutes with rest breaks as needed. Patient required mod assist x 1, min asisst of another for sit supine and max assist x 2 for scooting up in bed with bed in trendelenberg. Assessment : Patient progressing but has very poor activity tolerance. Patient rated activities during this session as 8/10 on RPE scale. Gave patient instructions to continue to attempt RLE movement, pulling herself up in bed using bed rails, propping up on elbows in bed and theraband single arm pushes to improve tolerance to activity, promote UE strength. Concerned about patient's motivation and possible depression like affect limiting her compliance. Plan for Treatment : Progress per patient tolerance. LINDA BEVERLY PT - 09/04/2018 12:[address] PT Charges PT Ther Activities Ea 15 Min : 2 LINDA BEVERLY PT - 09/04/2018 12:10 EDT documented in this encounter Plan of Treatment Not on file documented as of this encounter Visit Diagnoses Not on filedocumented in this encounter Care Teams Conventional Underwriter Relationship Specialty Start Date End Date Juan José Kendall MD [address] [facility] [address] [place] [address] PCP - General Family Medicine 12/25/22 Juan José Kendall MD [address] [facility] [address] [place] [address] Referring Physician Family Medicine 12/25/22 documented as of this encounter
--- OUTSIDE RECORDS SUMMARY | 2024-03-11 09:22 | XMS_ITS | Encounter Summary ---
Author Organization [employer] Address [address] [place] [address] Care Team Providers Care Bee Breeder Name Role Phone Juan José Kendall MD Primary Care Provider + [phone] Juan José Kendall MD Unavailable [phone] Encounter Details Date Type Department Care Team (Late st Contact Info) Description 09/02/2018 Transcribed Document [facility] [place] [facility] [place] [address] ProviderLaurie MD [address] [place] [address] Social History Tobacco Use Types Packs/Day Years Used Date Smoking Tobacco: Never Assessed Comments Unknown Sex and Gender Information Value Date Recorded Sex Assigned at Not on file Legal Sex Female 2:23 PM CDT Gender Identity Not on file Sexual Orientation Not on file documented as of this encounter Miscellaneous Notes * Cerner Conversion Note - Historical ProviderMD - 09/02/2018 7:38 AM CDT Event Note Entered On: 09/02/2018 7:39 EDT Performed On: 09/02/2018 7:38 EDT by Dayday Crump RN Event Note Event Date/Time : 09/02/2018 7:20 EDT Event Location : Assigned room Event Details : Nursing assessment additional narrative Description of Event : Lab called and asked me to redraw H&H. Wasted and redrew. Lab called and said it was a 4.9 and agreed to send someone to draw blood from patient and not from patient's port. Dayshift nurse notified and will make certain to stay on top of the H&H. Dayday Crump RN - 09/02/2018 7:38 EDT Electronically signed by Aleks, [facility] Conversion Construction Rigger Cerner at 07/24/2022 3:55 PM CDT documented in this encounter Plan of Treatment Not on file documented as of this encounter Visit Diagnoses Not on filedocumented in this encounter Care Teams Bee Breeder Relationship Specialty Start Date End Date Juan José Kendall MD [address] [facility] [address] [place] [id number] PCP - General Family Medicine 12/25/22 Juan José Kendall MD [address] [facility] [address] [place] [phone] Referring Physician Family Medicine 12/25/22 documented as of this encounter
--- OUTSIDE RECORDS SUMMARY | 2024-03-11 09:22 | XMS_ITS | Encounter Summary ---
Author Organization [employer] Address [address] [place] [address] Care Team Providers Care Repairer Art Objects Name Role Phone Juan José Kendall MD Primary Care Provider +- [phone] Juan José Kendall MD Unavailable [phone] Encounter Details Date Type Department Care Team (Late st Contact Info) Description 09/01/2018 Transcribed Document [facility] [place] [facility] [place] [address] ProviderLaurie MD [address] [place] [address] [id number] Social History Tobacco Use Types Packs/Day Years Used Date Smoking Tobacco: Never Assessed Comments Unknown Sex and Gender Information Value Date Recorded Sex Assigned at Not on file Legal Sex Female 2:23 PM CDT Gender Identity Not on file Sexual Orientation Not on file documented as of this encounter Miscellaneous Notes * Cerner Conversion Note - Laurie ProviderMD - 09/01/2018 7:00 AM CDT Pain Assessment Entered On: 09/01/2018 18:34 EDT Performed On: 09/01/2018 7:49 EDT by Jennifer Arndt, Registered Nurse Intervention Information: acetaminophen Performed by Suzan Zapata, RN on 09/01/2018 06:49:00 EDT acetaminophen,500mg Oral Pain Assessment Pain Assessment : Follow-up assessment Pain Scale Goal : 3 Pain Scale Used : 0-10 Scale Pain Intervention, Drug : Medicated Pain Improved by Intervention : Yes Jennifer Arndt, Registered Nurse - 09/01/2018 18:34 EDT Pain Scale Intensity : 4 Jennifer Arndt, Registered Nurse - 09/01/2018 18:34 EDT Image 4 - Images currently included in the form version of this document have not been included in the text rendition version of the form. documented in this encounter Plan of Treatment Not on file documented as of this encounter Visit Diagnoses Not on filedocumented in this encounter Care Teams Repairer Art Objects Relationship Specialty Start Date End Date Juan José Kendall MD [address] [facility] [address] [place] [address] PCP - General Family Medicine 12/25/22 [place] [address] [place] [address] [address] [place] [address] Referring Physician Family Medicine 12/25/22 documented as of this encounter
--- OUTSIDE RECORDS SUMMARY | 2024-03-11 09:22 | XMS_ITS | Encounter Summary ---
Author Organization [employer] Address [address] [place] [address] Care Team Providers Care Upholsterer Apprentice Name Role Phone Juan José Kendall MD Primary Care Provider +- [phone] Juan José Kendall MD Unavailable [phone] Encounter Details Date Type Department Care Team (Late st Contact Info) Description 08/31/2018 Transcribed Document [facility] [place] [facility] [place] [address] ProviderLaurie MD [address] [place], [place] [id number] Social History Tobacco Use Types Packs/Day Years Used Date Smoking Tobacco: Never Assessed Comments Unknown Sex and Gender Information Value Date Recorded Sex Assigned at Not on file Legal Sex Female 2:23 PM CDT Gender Identity Not on file Sexual Orientation Not on file documented as of this encounter Miscellaneous Notes * Cerner Conversion Note - Laurie ProviderMD - 08/31/2018 12:55 PM CDT UM Authorization Entered On: 08/31/2018 12:55 EDT Performed On: 08/31/2018 12:55 EDT by Inder Cowan Mkt Clerical Aide Teacher-Utilization Mgt Primary Insurance Authorization Authorization and Policy Numbers : Insurance 1 Health Plan: ANTHEM HMOPPO Policy Number: Authorization Number: Insurance 2 Health Plan: MEDICARE Policy Number: [id number] Authorization Number: Insurance Primary Name : Luz CHEUNG Authorization Status-Primary : Admit approved Authorization Number-Primary : [id number] Number of Days Authorized-Primary : DRG Authorized Service Begin Date-Primary : 08/30/2018 EDT Authorized Service End Date-Primary : 09/06/2018 EDT Historical Authorization Comments-Primary : Comment 1: Per Availity site (referred to different section than normal), inpt admission approved. Auth noted. Will need d/c date called. (Inder Cowan Mkt Clerical Aide Teacher-Utilization Mgt 08/31/2018 12:52) Inder Cowan Mkt Clerical Aide Teacher-Utilization Mgt - 08/31/2018 12:55 EDT Electronically signed by [facility], [facility] Conversion Safety Coordinator Cerner at 07/24/2022 3:56 PM CDT documented in this encounter Plan of Treatment Not on file documented as of this encounter Visit Diagnoses Not on filedocumented in this encounter Care Teams Upholsterer Apprentice Relationship Specialty Start Date End Date Juan José Kendall MD [address] [facility] [address] [place] [address] PCP - General Family Medicine 12/25/22 Juan José Kendall MD [address] [facility] [address] [place] [address] Referring Physician Family Medicine 12/25/22 documented as of this encounter
--- OUTSIDE RECORDS SUMMARY | 2024-03-11 09:22 | XMS_ITS | Encounter Summary ---
Author Organization [employer] Address [address] [place] [address] Care Team Providers Care Outside Repairer Special Name Role Phone Juan José Kendall MD Primary Care Provider +- [phone] Juan José Kendall MD Unavailable [phone] Encounter Details Date Type Department Care Team (Late st Contact Info) Description 09/01/2018 Transcribed Document [facility] [place] [facility] [place] [address] ProviderLaurie MD [address] [place] [address] [id number] Social History Tobacco Use Types Packs/Day Years Used Date Smoking Tobacco: Never Assessed Comments Unknown Sex and Gender Information Value Date Recorded Sex Assigned at Not on file Legal Sex Female 2:23 PM CDT Gender Identity Not on file Sexual Orientation Not on file documented as of this encounter Miscellaneous Notes * Cerner Conversion Note - Laurie ProviderMD - 09/01/2018 1:00 PM CDT Pain Assessment Entered On: 09/01/2018 18:35 EDT Performed On: 09/01/2018 14:08 EDT by Jennifer Arndt Registered Nurse Intervention Information: acetaminophen Performed by Jennifer Arndt, Registered Nurse on 09/01/2018 13:08:00 EDT acetaminophen,500mg Oral Pain Assessment Pain Assessment : Follow-up assessment Pain Scale Goal : 3 Pain Scale Used : 0-10 Scale Pain Intervention, Drug : Medicated Pain Improved by Intervention : Yes Jennifer Arndt Registered Nurse - 09/01/2018 18:34 EDT Pain Scale Intensity : 4 Jennifer Arndt Registered Nurse - 09/01/2018 18:34 EDT Image 4 - Images currently included in the form version of this document have not been included in the text rendition version of the form. documented in this encounter Plan of Treatment Not on file documented as of this encounter Visit Diagnoses Not on filedocumented in this encounter Care Teams Outside Repairer Special Relationship Specialty Start Date End Date Juan José Kendall MD [address] [facility] [address] [place] [address] PCP - General Family Medicine 12/25/22 Juan José Kendall MD [address] [facility] [address] [place] [address] Referring Physician Family Medicine 12/25/22 documented as of this encounter
--- OUTSIDE RECORDS SUMMARY | 2024-03-11 09:22 | XMS_ITS | Encounter Summary ---
Author Organization [employer] Address [address] [place] [address] Care Team Providers Care Mobile Lounge Driver Or Operator Name Role Phone Juan José Kendall MD Primary Care Provider +- [phone] Juan José Kendall MD Unavailable [phone] Encounter Details Date Type Department Care Team (Late st Contact Info) Description 09/01/[address] [facility] [place] Family Medicine [facility] [address] ProviderLaurie MD [address] [place] [address] Social History Tobacco Use Types Packs/Day Years Used Date Smoking Tobacco: Never Assessed Comments Unknown Sex and Gender Information Value Date Recorded Sex Assigned at Not on file Legal Sex Female 2:23 PM CDT Gender Identity Not on file Sexual Orientation Not on file documented as of this encounter Miscellaneous Notes * Cerner Conversion Note - Laurie ProviderMD - 09/01/2018 7:08 PM CDT Patient: TRUDI BLAIR Age: 63 [...] alert comfortable, asympt. , pain under control, ???Had left total knee arthroplasty processes explantation and spacer was on antibiotic placement ???Metabolic acidosis ???Hypoalbuminemia Review of Systems Constitutional: No fever, No [...] 25 Gram 100 mL, IV Piggyback, Q6H cefTRIAXone + NaCl 0.9% 50 mL 2 Gram, IV Piggyback, [id number] DAPTOmycin + NaCl 0.9% 50 mL 700 mg 14 mL, IV Piggyback, [id number] docusate sodium 100 mg cap 100 mg [...] Stress incontinence Physical Examination VS/Measurements Vital Measurements 09/01/2018 18:39 EDT Temperature Source Oral Temperature Mode Fahrenheit Temperature, Fahrenheit 98.5 Deg F Clinical Temperature, C 36.9 Deg C Heart Rate Monitored 95 bpm Respiratory Rate 18 Breaths/Min Systolic Blood Pressure 120 mmHg Diastolic Blood Pressure 31 mmHg LOW Mean Arterial Pressure (MAP)-BMDI 46 Oxygen Saturation 97 % General: Alert and [...] Review / Management Results review: All Results 09/01/2018 4:10 EDT Sodium Level 143 mmol/L [...] 9.0 % LOW Lymph # 1.21 K/uL Evans % 5.2 % Evans # 0.69 K/uL Eos % 0.0 % LOW Eos # 0.00 K/uL LOW Baso % 0.1 % Baso # 0.01 K/uL Slide Review No IG# 0 x10(3)/uL IG% 1 % 08/31/2018 20:35 EDT Hgb 10.0 Gram/dL LOW Hct 31.0 % LOW 08/31/2018 7:16 EDT Magnesium Level 1.8 mg/dL Phosphorus 4.6 mg/dL Vitamin D 25 Hydroxy 13.9 ng/mL LOW 08/31/2018 7:02 EDT Creatinine Urine Random 60 mg/dL NA Protein Ur [place] 209 mg/dL NA Sodium Ur [place] 48 mMole/Liter NA Urea Nitrogen Urine Random 390 mg/dL NA Uric Acid Urine Random 38 mg/dL NA 08/31/2018 5:45 EDT Sodium Level 145 mmol/L Potassium Level 3.7 mmol/L Chloride Level 112 mmol/L Carbon Dioxide Level 22 mmol/L Anion Gap 15 Glucose Level 93 mg/dL Blood Urea Nitrogen 32 mg/dL HI Creatinine Level 2.31 mg/dL HI eGFR 26 mL/min/1.73m2 LOW eGFR NonAfrican 21 mL/min/1.73m2 LOW Bun/Creatinine 13.9 Calcium Level 7.2 mg/dL LOW Protein Total 4.4 Gram/dL LOW Albumin Level 1.4 Gram/dL LOW Globulin 3.0 Gram/dL A/G Ratio 0.5 LOW Bilirubin Total 0.3 mg/dL Alk Phos 72 Units/Liter AST 42 Units/Liter HI ALT 19 Units/Liter WBC 5.3 K/uL RBC 2.75 Million/uL LOW Hgb 7.8 Gram/dL LOW Hct 24.5 % LOW MCV 89.1 fL MCH 28.4 pg MCHC 31.8 Gram/dL LOW Platelet Count 161 K/uL LOW MPV 10.5 fL RDW 17.5 % HI Neut % 61.4 % Neut # 3.25 K/uL Lymph % 19.8 % Lymph # 1.05 K/uL LOW Evans % 7.8 % Evans # 0.41 K/uL Eos % 10.4 % HI Eos # 0.55 K/uL HI Baso % 0.4 % Baso # 0.02 K/uL Slide Review No IG# 0 x10(3)/uL IG% 0 % ABO/Rh Repeat O POS . Impression and Plan Diagnosis Sepsis - [...] blood glucose, and urine output. -Continue on current IV antibiotics as recommended by infectious disease -Continue on wound care -Pain control -DVT prophylaxis -Close monitoring renal function -When necessary nebs -For risk precautions -Sleep apnea precautions. documented in this encounter Plan of Treatment Not on file documented as of this encounter Visit Diagnoses Not on filedocumented in this encounter Care Teams Mobile Lounge Driver Or Operator Relationship Specialty Start Date End Date Juan José Kendall MD [address] [place] [facility] [address] [place] [address] PCP - General Family Medicine 12/25/22 Juan José Kendall MD [address] [place] [facility] [address] [place] [address] Referring Physician Family Medicine 12/25/22 documented as of this encounter
--- OUTSIDE RECORDS SUMMARY | 2024-03-11 09:22 | XMS_ITS | Encounter Summary ---
Author Organization [employer] Address [address] [place] [address] Care Team Providers Care Balance Truer Name Role Phone Juan José Kendall MD Primary Care Provider + [phone] Juan José Kendall MD Unavailable [phone] Encounter Details Date Type Department Care Team (Late st Contact Info) Description 09/05/2018 Transcribed Document [facility] [place] Family Medicine [facility] [place] [address] ProviderLaurie MD [address] [place] [address] Social History Tobacco Use Types Packs/Day Years Used Date Smoking Tobacco: Never Assessed Comments Unknown Sex and Gender Information Value Date Recorded Sex Assigned at Not on file Legal Sex Female 2:23 PM CDT Gender Identity Not on file Sexual Orientation Not on file documented as of this encounter Miscellaneous Notes * Cerner Conversion Note - Historical ProviderMD - 09/05/2018 3:00 AM CDT Nutrition Assessment Entered On: 09/05/2018 9:07 EDT Performed On: 09/05/2018 10:16 EDT by JULIAN GARCIA RD, LD Nutrition Assessment Current Nutrition Regimen Comment : 09/05: MARYURI f/up. Spoke to pt who reported having [...] cont. following wt trends and PO intake. (08/31) RD consult rec'd for BMI >40 and for reported wt loss of unsure amount with decrease in appetite (MST=5). Pt was gone to surgery at time of visit. Per charted wt hx pt has gained 5#. Unable to assess for PCM at this time, will attempt at follow up. Dx: sepsis, left prosthetic knee infection, PILY, MRSA septicemia, infected left wound, UTI PMH: GERD, high cholesterol, HTN Labs: K+ 3.2, BUN 26,Cr 1.87, albumin 2.3, CRP 15.1, Vit D 13.9 Meds: abx, colace, protonix, statin, IVF Skin: no breakdown noted GI: LBM 09/02, active BS Diet: Regular Intake: <25% of meals per pt Ht: 66 Wt: 270#, no new wt (09/05) Wt Hx: 265# (06/23) BMI: 43.5 IBW/%IBW: 130#/208% JULIAN GARCIA RD, LD - 09/05/2018 10:08 EDT Nutrition Assessment Reason : Follow Up JULIAN GARCIA RD, LD - 09/05/2018 9:07 EDT Nutrition Diagnoses Oral or Nutrition Support Intake : Inadequate oral intake Oral or Nutr Support Intake Related To : decreased appetite Oral or Nutr Support Intake Evidenced by : PO intake <25% of meals per pt report Oral or Nutrition Support Intake Status : Active JULIAN GARCIA RD, LD - 09/05/2018 10:10 EDT Nutrition Interventions Meals and Snacks : General/Healthful diet Nutrition Supplement Therapy : Commercial beverage JULIAN GARCIA RD, LD - 09/05/2018 10:10 EDT Monitoring/Evaluation Energy Intake : Total energy intake Food Intake : Amount of food, Meal/Snack pattern Weight Status : Weight Maintanence JULIAN GARCIA RD, LD - 09/05/2018 10:10 EDT Nutrition Recommendations Dietitian Recommendations : 1. Continue regular diet + RD will add Ensure BID + [id number] daily. Goal: PO intake >50% of meals and supplements 2. Monitor wt 2x/wk goal: no significant involuntary changes in wt Nutritional Risk: high GARCIA JULIAN E, RD, LD - 09/05/2018 10:10 EDT Electronically signed by [facility] Conversion Funder Cerner at 07/24/2022 3:37 PM CDT documented in this encounter Plan of Treatment Not on file documented as of this encounter Visit Diagnoses Not on filedocumented in this encounter Care Teams Balance Truer Relationship Specialty Start Date End Date Juan José Kendall MD [address] [place] [facility] [address] [place] [phone] PCP - General Family Medicine 12/25/22 Juan José Kendall MD [address] [facility] [address] [place] [id number] Referring Physician Family Medicine 12/25/22 documented as of this encounter
--- OUTSIDE RECORDS SUMMARY | 2024-03-11 09:22 | XMS_ITS | Encounter Summary ---
Author Organization [employer] Address [address] [place] [address] Care Team Providers Care Display Decorator Name Role Phone Juan José Kendall MD Primary Care Provider + [phone] Juan José Kendall MD Unavailable [phone] Encounter Details Date Type Department Care Team (Late st Contact Info) Description 09/01/2018 Transcribed Document [facility] [place] Family Medicine [facility] [place] [address] ProviderLaurie MD [address] [place] [address] Social History Tobacco Use Types Packs/Day Years Used Date Smoking Tobacco: Never Assessed Comments Unknown Sex and Gender Information Value Date Recorded Sex Assigned at Not on file Legal Sex Female 2:23 PM CDT Gender Identity Not on file Sexual Orientation Not on file documented as of this encounter Miscellaneous Notes * Cerner Conversion Note - Historical ProviderMD - 09/01/2018 7:20 PM CDT Spiritual Care Short Form Entered On: 09/01/2018 19:50 EDT Performed On: 09/01/2018 19:20 EDT by EDUARDO SCHULER Chaplain-Non Cert General Information, Spiritual Care Spiritual Care Referred by : Email Marketing Assistant initiated Reason for Visit : Initial Ministry Provided to : Patient Intervention/Comment/Summary Points : Provided empathetic listening. Yazidism Preference : Denominational EDUARDO SCHULER Chaplain-Non Cert - 09/01/2018 19:49 EDT documented in this encounter Plan of Treatment Not on file documented as of this encounter Visit Diagnoses Not on filedocumented in this encounter Care Teams Display Decorator Relationship Specialty Start Date End Date Juan José Kendall MD [address] [facility] [address] [place] [phone] PCP - General Family Medicine 12/25/22 Juan José Kendall MD [facility] [address] [place] [phone] Referring Physician Family Medicine 12/25/22 documented as of this encounter
--- OUTSIDE RECORDS SUMMARY | 2024-03-11 09:22 | XMS_ITS | Encounter Summary ---
Author Organization [employer] Address [address] [place] [address] Care Team Providers Care Traffic Personnel Supervisor Name Role Phone Juan José Kendall MD Primary Care Provider + [phone] Juan José Kendall MD Unavailable [phone] Encounter Details Date Type Department Care Team (Late st Contact Info) Description 09/03/2018 Transcribed Document [facility] [place] Family Medicine [address] [place] [address] ProviderLaurie MD [address] [place] [address] Social History Tobacco Use Types Packs/Day Years Used Date Smoking Tobacco: Never Assessed Comments Unknown Sex and Gender Information Value Date Recorded Sex Assigned at Not on file Legal Sex Female 2:23 PM CDT Gender Identity Not on file Sexual Orientation Not on file documented as of this encounter Miscellaneous Notes * Cerner Conversion Note - Lauire ProviderMD - 09/03/2018 5:00 AM CDT Chart Check - Review Order Profile Entered On: 09/03/2018 3:31 EDT Performed On: 09/03/2018 5:00 EDT by Dayday Crump RN Chart Check Powerplans Initiated/Discontinued as Appropriate : Yes All Active Orders Reviewed : Yes Dayday Crump RN - 09/03/2018 3:31 EDT documented in this encounter Plan of Treatment Not on file documented as of this encounter Visit Diagnoses Not on filedocumented in this encounter Care Teams Traffic Personnel Supervisor Relationship Specialty Start Date End Date Juan José Kendall MD [address] [place] [id number] PCP - General Family Medicine 12/25/22 Juan José Kendall MD [address] [place] [phone] Referring Physician Family Medicine 12/25/22 documented as of this encounter
--- OUTSIDE RECORDS SUMMARY | 2024-03-11 09:22 | XMS_ITS | Encounter Summary ---
Author Organization [employer] Address [address] [place] [address] Care Team Providers Care Profiling Machine Set Up Operator Name Role Phone Juan José Kendall MD Primary Care Provider + [phone] Juan José Kendall MD Unavailable [phone] Encounter Details Date Type Department Care Team (Late st Contact Info) Description 09/04/2018 Transcribed Document [facility] [place] Family Medicine [address] [place] [address] ProviderLaurie MD [address] [place] [address] Social History Tobacco Use Types Packs/Day Years Used Date Smoking Tobacco: Never Assessed Comments Unknown Sex and Gender Information Value Date Recorded Sex Assigned at Not on file Legal Sex Female 2:23 PM CDT Gender Identity Not on file Sexual Orientation Not on file documented as of this encounter Miscellaneous Notes * Cerner Conversion Note - Laurie ProviderMD - 09/04/2018 5:00 AM CDT Chart Check - Review Order Profile Entered On: 09/04/2018 3:11 EDT Performed On: 09/04/2018 5:00 EDT by Dayday Crump RN Chart Check Powerplans Initiated/Discontinued as Appropriate : Yes All Active Orders Reviewed : Yes Dayday Crump RN - 09/04/2018 3:11 EDT documented in this encounter Plan of Treatment Not on file documented as of this encounter Visit Diagnoses Not on filedocumented in this encounter Care Teams Profiling Machine Set Up Operator Relationship Specialty Start Date End Date Juan oJsé Kendall MD [address] [place] [id number] PCP - General Family Medicine 12/25/22 Juan José Kendall MD [address] [place] [phone] Referring Physician Family Medicine 12/25/22 documented as of this encounter
--- OUTSIDE RECORDS SUMMARY | 2024-03-11 09:22 | XMS_ITS | Encounter Summary ---
Author Organization [employer] Address [address] [place] [address] Care Team Providers Care Sister Superior Name Role Phone Juan José Kendall MD Primary Care Provider +- [phone] Juan José Kendall MD Unavailable [phone] Encounter Details Date Type Department Care Team (Late st Contact Info) Description 09/01/2018 Transcribed Document [facility] [place] Family Medicine [facility] [place] [address] ProviderLaurie MD [address] [place] [address] Social History Tobacco Use Types Packs/Day Years Used Date Smoking Tobacco: Never Assessed Comments Unknown Sex and Gender Information Value Date Recorded Sex Assigned at Not on file Legal Sex Female 2:23 PM CDT Gender Identity Not on file Sexual Orientation Not on file documented as of this encounter Miscellaneous Notes * Cerner Conversion Note - Laurie ProviderMD - 09/01/2018 8:31 AM CDT Patient: TRUDI BLAIR Age: 63 years Sex: Female : 1955 Associated Diagnoses: None Author: LINDA MARQUEZ MD-NEP Subjective No new complaints Objective VS/Measurements Vitals Signs (last 24 hrs) Last Charted Minimum Maximum Temp 97.9 (SEPTEMBER 01 06:52) 97.0 (AUGUST 31 18:00) 98.4 (AUGUST 31 09:30) Apical HR L 51 (AUGUST 31 13:50) L 51 (AUGUST 31 13:50) L 55 (AUGUST 31 09:54) Mon HR 100 (SEPTEMBER 01 06:52) 54 (AUGUST 31:30) 105 (AUGUST 31 23:30) Resp Rate 16 (SEPTEMBER 01 06:52) 14 (AUGUST 31 18:08) 20 (AUGUST 31 17:20) SBP 108 (SEPTEMBER 01 06:52) L 82 (AUGUST 31 17:20) 138 (AUGUST 31 13:50) DBP 66 (SEPTEMBER 01 06:52) L 45 (AUGUST 31 09:30) 69 (AUGUST 31 23:30) MAP 74 (SEPTEMBER 01 06:52) 66 (AUGUST 31 18:37) 82 (AUGUST 31 18:24) SpO2 98 (SEPTEMBER 01 06:52) 94 (AUGUST 31 17:37) 99 (SEPTEMBER 01 01:06) Intake & Output Totals Last 24 Hours (7a-7a) Intake (7 Events) Medications (174.5 mL) Surgical Services Intake (1600 mL) Output (2 Events) Parekh Catheter (950 mL) Input Total: 1774.5 mL Output Total: 950 mL Balance: 824.5 mL General: No acute distress, WDWF. Eye: Pupils are equal, round and reactive to light, Normal conjunctiva. HENT: Normocephalic, Oral mucosa is moist. Neck: Supple, No jugular venous distention. Respiratory: Lungs are clear to auscultation, Respirations are non-labored. Cardiovascular: Normal rate, + ansarca. Gastrointestinal: Soft, Non-distended, obese. Genitourinary: [...] (AUGUST 30) Impression and Plan ARF: Cr conitues to slowly improve. nonoliguric UOP. Cr was intially elevated to 2.4 on admit from [facility] 0.9 06/2018. pt with multiple admssion to outside hosptial. Appears Cr up to 2.9 08/28. transferred here with multiple infections, hypotension, multiple abx. Pharmacy doseing vanc. avoid vanc toxicity. HTN: BP still low side. support with albumin Anemia: transfuse PRN for Hgb < 7. Met acidosis: give po bicarb for now. Edema: component of third spacing with very low oncitic pressure and IVF. give albumin to help mobilize fluids. Give bumex once BP back up to 120's S/P Knee surgery for explantation of harware due to infection Multiple infections: ID evaluating. getting abx high risk and complexity pt documented in this encounter Plan of Treatment Not on file documented as of this encounter Visit Diagnoses Not on filedocumented in this encounter Care Teams Sister Superior Relationship Specialty Start Date End Date Juan José Kendall MD [address] [place] [phone] PCP - General Family Medicine 12/25/22 Juan José Kendall MD [address] [place] [facility] [address] [place] [phone] Referring Physician Family Medicine 12/25/22 documented as of this encounter
--- OUTSIDE RECORDS SUMMARY | 2024-03-11 09:22 | XMS_ITS | Encounter Summary ---
Author Organization [employer] Address [address] [place] [address] Care Team Providers Care Conductor Freight Name Role Phone Juan José Kendall MD Primary Care Provider +- [phone] Juan José Kendall MD Unavailable [phone] Encounter Details Date Type Department Care Team (Late st Contact Info) Description 08/31/2018 Transcribed Document [facility] [place] [facility] [place] [address] ProviderLaurie MD [address] [place] [address] Social History Tobacco Use Types Packs/Day Years Used Date Smoking Tobacco: Never Assessed Comments Unknown Sex and Gender Information Value Date Recorded Sex Assigned at Not on file Legal Sex Female 2:23 PM CDT Gender Identity Not on file Sexual Orientation Not on file documented as of this encounter Miscellaneous Notes * Cerner Conversion Note - Historical ProviderMD - 08/31/2018 11:34 AM CDT Education-(VTE) / (DVT) Entered On: 08/31/2018 16:35 EDT Performed On: 08/31/2018 11:34 EDT by Brenda Calero, RN Teaching/Learning Assessment Barriers To Learning : None evident Individuals Taught : Patient Readiness to Learn : Cooperative Baseline Knowledge of Topic : Good Readiness to Learn : Demonstration Learning Style Preferences Patient : Demonstration Learning Style Preferences Family : Demonstration Brenda Calero, RN - 08/31/2018 16:35 EDT documented in this encounter Plan of Treatment Not on file documented as of this encounter Visit Diagnoses Not on filedocumented in this encounter Care Teams Conductor Freight Relationship Specialty Start Date End Date Juan José Kendall MD [address] [facility] [address] [place] [phone] PCP - General Family Medicine 12/25/22 Juan José Kendall MD [address] [facility] [address] [place] [phone] Referring Physician Family Medicine 12/25/22 documented as of this encounter
--- OUTSIDE RECORDS SUMMARY | 2024-03-11 09:22 | XMS_ITS | Encounter Summary ---
Author Organization [employer] Address [address] [place] [address] Care Team Providers Care Multimedia Producer Name Role Phone Juan José Kendall MD Primary Care Provider +- [phone] Juan José Kendall MD Unavailable [phone] Encounter Details Date Type Department Care Team (Late st Contact Info) Description 09/01/2018 Transcribed Document [facility] [place] Family Medicine [facility] [place] [address] ProviderLaurie MD [address] [place] [id number] Social History Tobacco Use Types Packs/Day Years Used Date Smoking Tobacco: Never Assessed Comments Unknown Sex and Gender Information Value Date Recorded Sex Assigned at Not on file Legal Sex Female 2:23 PM CDT Gender Identity Not on file Sexual Orientation Not on file documented as of this encounter Miscellaneous Notes * Cerner Conversion Note - Laurie ProviderMD - 09/01/2018 3:02 PM CDT On Going Discharge Planning Entered On: 09/01/2018 15:03 EDT Performed On: 09/01/2018 15:02 EDT by Alyson Henriquez Screw Down-Embedded Software Engineer Care Management Progress Note Discharge Arrangements : Patient Post-Acute Information Patient Name: TRUDI BLAIR Gender: Female : [birth year] Age: 63 Years No Post-Acute Placement(s) Listed No Post-Acute Service(s) Listed No [place] Referral(s) Listed Discharge Options Discussed with Patient : Acute rehabilitation, Short term rehabilitation Were Referrals Sent to Post Acute Providers : Yes Alyson Henriquez Screw Down-Embedded Software Engineer - 09/01/2018 15:02 EDT Narrative Progress Note Narrative Progress Note : 09/01 Received call from proposal coordinator at [facility]. She reports they do not have any available beds at this time. Alyson Henriquez Social Worker-Embedded Software Engineer - 09/01/2018 15:02 EDT documented in this encounter Plan of Treatment Not on file documented as of this encounter Visit Diagnoses Not on filedocumented in this encounter Care Teams Multimedia Producer Relationship Specialty Start Date End Date Juan José Kendall MD [address] [facility] [address] [place] [phone] PCP - General Family Medicine 12/25/22 Juan José Kendall MD [address] [facility] [address] [place] [phone] Referring Physician Family Medicine 12/25/22 documented as of this encounter
--- OUTSIDE RECORDS SUMMARY | 2024-03-11 09:22 | XMS_ITS | Encounter Summary ---
Author Organization [employer] Address [address] [place] [address] Care Team Providers Care Commutator V Ring Assembler Name Role Phone Juan José Kendall MD Primary Care Provider + [phone] Juan José Kendall MD Unavailable [phone] Encounter Details Date Type Department Care Team (Late st Contact Info) Description 09/01/2018 Transcribed Document [facility] [place] [facility] [place] [address] ProviderLaurie MD [address] [place] [address] Social History Tobacco Use Types Packs/Day Years Used Date Smoking Tobacco: Never Assessed Comments Unknown Sex and Gender Information Value Date Recorded Sex Assigned at Not on file Legal Sex Female 2:23 PM CDT Gender Identity Not on file Sexual Orientation Not on file documented as of this encounter Miscellaneous Notes * Cerner Conversion Note - Historical ProviderMD - 09/01/2018 6:54 PM CDT Event Note Entered On: 09/01/2018 18:55 EDT Performed On: 09/01/2018 18:54 EDT by Jennifer Arndt, Registered Nurse Event Note Event Date/Time : 09/01/2018 18:54 EDT Description of Event : Dr Porter and IN STORE MARKETING REPRESENTATIVE notified of sepsis alert Jennifer Arndt, Registered Nurse - 09/01/2018 18:54 EDT documented in this encounter Plan of Treatment Not on file documented as of this encounter Visit Diagnoses Not on filedocumented in this encounter Care Teams Commutator V Ring Assembler Relationship Specialty Start Date End Date Juan José Kendall MD [address] [place] [id number] PCP - General Family Medicine 12/25/22 Juan José Kendall MD [address] [place] [phone] Referring Physician Family Medicine 12/25/22 documented as of this encounter
--- OUTSIDE RECORDS SUMMARY | 2024-03-11 09:22 | XMS_ITS | Encounter Summary ---
Author Organization [employer] Address [address] [place] [address] Care Team Providers Care Lock Expert Name Role Phone Juan José Kendall MD Primary Care Provider +- [phone] Juan José Kendall MD Unavailable [phone] Encounter Details Date Type Department Care Team (Late st Contact Info) Description 09/02/2018 Transcribed Document [facility] [place] [address] ProviderLaurie MD [address] [place] [address] Social History Tobacco Use Types Packs/Day Years Used Date Smoking Tobacco: Never Assessed Comments Unknown Sex and Gender Information Value Date Recorded Sex Assigned at Not on file Legal Sex Female 2:23 PM CDT Gender Identity Not on file Sexual Orientation Not on file documented as of this encounter Miscellaneous Notes * Cerner Conversion Note - Historical ProviderMD - 09/02/2018 2:00 AM CDT Client Service Coordinator Details Entered On: 09/02/2018 0:18 EDT Performed On: 09/02/2018 2:00 EDT by Dayday Crump RN Order Details Transport Mode Order Detail : Bed (including specialty) Isolation Precautions Order Detail : Contact precautions Order Detail : 0 IV Order Detail : 1 Oxygen Order Detail : 0 Nurse Collect Order Detail : 0 Lift/Transfer : Maximal assist Central Line Order Detail : No Room Service : Not Appropriate Arterial Line : No Dadyay Crump RN - 09/02/2018 0:18 EDT documented in this encounter Plan of Treatment Not on file documented as of this encounter Visit Diagnoses Not on filedocumented in this encounter Care Teams Lock Expert Relationship Specialty Start Date End Date Juan José Kendall MD [address] [facility] [address] [place] [id number] PCP - General Family Medicine 12/25/22 Juan José Kendall MD [address] [facility] [address] [place] [id number] Referring Physician Family Medicine 12/25/22 documented as of this encounter
--- OUTSIDE RECORDS SUMMARY | 2024-03-11 09:22 | XMS_ITS | Encounter Summary ---
Author Organization [employer] Address [address] [place] [address] Care Team Providers Care Nuclear Physicist Name Role Phone Juan José Kendall MD Primary Care Provider + [phone] Juan José Kendall MD Unavailable [phone] Encounter Details Date Type Department Care Team (Late st Contact Info) Description 09/01/2018 Transcribed Document [facility] [place] [address] [place] [address] ProviderLaurie MD [address] [place] [address] Social History Tobacco Use Types Packs/Day Years Used Date Smoking Tobacco: Never Assessed Comments Unknown Sex and Gender Information Value Date Recorded Sex Assigned at Not on file Legal Sex Female 2:23 PM CDT Gender Identity Not on file Sexual Orientation Not on file documented as of this encounter Miscellaneous Notes * Cerner Conversion Note - Historical ProviderMD - 09/01/2018 2:02 PM CDT Initial Discharge Planning Entered On: 09/01/2018 14:07 EDT Performed On: 09/01/2018 14:02 EDT by Alyson Henriquez Social Worker-Finance Professional Initial Assessment I Previously Documented Living Environment : No qualifying data available. Living Situation : Home Patient Lives With : Spouse Is the Patient a Caregiver at Home? : No Emergency Contact #1 : Mauricio Blair Emergency Contact #1 Emergency Contact #1 Relationship : Spouse Emergency Contact #2 : n/a Emergency Contact #2 Phone Number : n/a Emergency Contact #2 Relationship : n/a Alyson Henriquez Social Worker-Finance Professional - 09/01/2018 14:02 EDT Discharge Needs I Anticipated Discharge To, CM : care home facility Current Home Treatment/Equipment : Current Home Treatment/Equipment No qualifying data available. Alyson Henriquez Social Worker-Finance Professional - 09/01/2018 14:02 EDT Discharge Needs II Professional Skilled Services : Professional Skilled Services No qualifying data available. Needs Assistance with Transportation : Maybe Discharge Options Discussed with Patient : Acute rehabilitation, Short term rehabilitation Alyson Henriquez Social Worker-Finance Professional - 09/01/2018 14:02 EDT Narrative Note Narrative Note : 09/01 Met with pt and spouse at the bedside. Pt reports she [address] in [place]. Pt reports she was [facility] for 15 days prior to admission at [facility]. Spouse reports they were looking for SNF while pt was in [facility]. Spouse reports pt will need short term rehab at discharge prior to returning home. Discussed preferences for SNF referral. They requested ferrals to [facility] and [facility]. Insurance requirements for SNF and precert process was discussed with pt and spouse. SNF referrals were made via [employer]. Continue to follow... Alyson Henriquez Social Worker-Finance Professional - 09/01/2018 14:02 EDT Electronically signed by Blayne Fink Conversion Homicide Squad Commanding Officer Cerner at 07/24/2022 3:49 PM CDT documented in this encounter Plan of Treatment Not on file documented as of this encounter Visit Diagnoses Not on filedocumented in this encounter Care Teams Nuclear Physicist Relationship Specialty Start Date End Date Juan José Kendall MD [address] [facility] [address] [place] [id number] PCP - General Family Medicine 12/25/22 Juan José Kendall MD [address] [facility] [address] [place] [id number] Referring Physician Family Medicine 12/25/22 documented as of this encounter
--- OUTSIDE RECORDS SUMMARY | 2024-03-11 09:22 | XMS_ITS | Encounter Summary ---
Author Organization [employer] Address [address] [place] [address] Care Team Providers Care Paper Hanger Name Role Phone Juan José Kendall MD Primary Care Provider + [phone] Juan José Kendall MD Unavailable [phone] Encounter Details Date Type Department Care Team (Late st Contact Info) Description 09/01/2018 Transcribed Document [facility] Family Medicine [address] [place] [address] ProviderLaurie MD [address] [place] [address] Social History Tobacco Use Types Packs/Day Years Used Date Smoking Tobacco: Never Assessed Comments Unknown Sex and Gender Information Value Date Recorded Sex Assigned at Not on file Legal Sex Female 2:23 PM CDT Gender Identity Not on file Sexual Orientation Not on file documented as of this encounter Miscellaneous Notes * Cerner Conversion Note - Historical ProviderMD - 09/01/2018 5:00 PM CDT Chart Check - Review Order Profile Entered On: 09/01/2018 18:35 EDT Performed On: 09/01/2018 17:00 EDT by Jennifer Arndt Registered Nurse Chart Check Powerplans Initiated/Discontinued as Appropriate : Yes All Active Orders Reviewed : Yes Jennifer Arndt Registered Nurse - 09/01/2018 18:35 EDT documented in this encounter Plan of Treatment Not on file documented as of this encounter Visit Diagnoses Not on filedocumented in this encounter Care Teams Paper Hanger Relationship Specialty Start Date End Date Juan José Kendall MD [address] [place] [id number] PCP - General Family Medicine 12/25/22 Juan José Kendall MD [address] [place] [id number] Referring Physician Family Medicine 12/25/22 documented as of this encounter
--- OUTSIDE RECORDS SUMMARY | 2024-03-11 09:22 | XMS_ITS | Encounter Summary ---
Author Organization [employer] Address [address] [place] [address] Care Team Providers Care Undercollar Baster Name Role Phone Juan José Kendall MD Primary Care Provider + [phone] Juan José Kendall MD Unavailable [phone] Encounter Details Date Type Department Care Team (Late st Contact Info) Description 09/04/2018 Transcribed Document [facility] [place] [address] [place] [address] ProviderLaurie MD [address] [place] [address] Social History Tobacco Use Types Packs/Day Years Used Date Smoking Tobacco: Never Assessed Comments Unknown Sex and Gender Information Value Date Recorded Sex Assigned at Not on file Legal Sex Female 2:23 PM CDT Gender Identity Not on file Sexual Orientation Not on file documented as of this encounter Miscellaneous Notes * Cerner Conversion Note - Historical ProviderMD - 09/04/2018 5:00 PM CDT Chart Check - Review Order Profile Entered On: 09/04/2018 17:10 EDT Performed On: 09/04/2018 17:00 EDT by Janae Alonso Rn Chart Check Powerplans Initiated/Discontinued as Appropriate : Yes All Active Orders Reviewed : Yes Janae Alonso Rn - 09/04/2018 17:10 EDT documented in this encounter Plan of Treatment Not on file documented as of this encounter Visit Diagnoses Not on filedocumented in this encounter Care Teams Undercollar Baster Relationship Specialty Start Date End Date Juan José Kendall MD [address] [place] [id number] PCP - General Family Medicine 12/25/22 Juan José Kendall MD [address] [place] [id number] Referring Physician Family Medicine 12/25/22 documented as of this encounter
--- OUTSIDE RECORDS SUMMARY | 2024-03-11 09:22 | XMS_ITS | Encounter Summary ---
Author Organization [employer] Address [address] [place] [address] Care Team Providers Care Sba Underwriter Name Role Phone Juan José Kendall MD Primary Care Provider + [phone] Juan José Kendall MD Unavailable [phone] Encounter Details Date Type Department Care Team (Late st Contact Info) Description 09/05/2018 Transcribed Document [facility] [place] [address] [place] [address] ProviderLaurie MD [address] [place] [address] Social History Tobacco Use Types Packs/Day Years Used Date Smoking Tobacco: Never Assessed Comments Unknown Sex and Gender Information Value Date Recorded Sex Assigned at Not on file Legal Sex Female 2:23 PM CDT Gender Identity Not on file Sexual Orientation Not on file documented as of this encounter Miscellaneous Notes * Cerner Conversion Note - Laurie ProviderMD - 09/05/2018 5:00 PM CDT Chart Check - Review Order Profile Entered On: 09/05/2018 19:21 EDT Performed On: 09/05/2018 17:00 EDT by Jennifer Arndt Registered Nurse Chart Check Powerplans Initiated/Discontinued as Appropriate : Yes All Active Orders Reviewed : Yes Jennifer Arndt, Registered Nurse - 09/05/2018 19:21 EDT documented in this encounter Plan of Treatment Not on file documented as of this encounter Visit Diagnoses Not on filedocumented in this encounter Care Teams Sba Underwriter Relationship Specialty Start Date End Date Juan José Kendall MD [address] [place] [id number] PCP - General Family Medicine 12/25/22 Juan José Kendall MD [address] [place] [id number] Referring Physician Family Medicine 12/25/22 documented as of this encounter
--- OUTSIDE RECORDS SUMMARY | 2024-03-11 09:22 | XMS_ITS | Encounter Summary ---
Author Organization [employer] Address [address] [place] [address] Care Team Providers Care Family Nurse Name Role Phone Juan José Kendall MD Primary Care Provider +- [phone] Juan José Kendall MD Unavailable [phone] Encounter Details Date Type Department Care Team (Late st Contact Info) Description 09/01/2018 Transcribed Document [facility] [place] [facility] [place] [address] ProviderLaurie MD [address] [place] [id number] Social History Tobacco Use Types Packs/Day Years Used Date Smoking Tobacco: Never Assessed Comments Unknown Sex and Gender Information Value Date Recorded Sex Assigned at Not on file Legal Sex Female 2:23 PM CDT Gender Identity Not on file Sexual Orientation Not on file documented as of this encounter Miscellaneous Notes * Cerner Conversion Note - Laurie ProviderMD - 09/01/2018 12:12 PM CDT Patient: TRUDI BLAIR Age: 63 years Sex: Female : 1955 Associated Diagnoses: None Author: CHIQUIS HICKS, [facility] verified patient's allergies and home medication list with the patient and pharmacy records and are below. Patient and family state she was taken off baclofen, celebrex, gabapentin and oxybutynin at [facility] due to kidney dysfunction. Patient wasn't sure of medication frequencies and doses but all doses and frequencies match fill quantities from her pharmay. Home Medications (7) Active metoclopramide 10 mg oral tablet 10 mg = 1 Tab, Oral, BID Metoprolol Tartrate 50 mg, Oral, Daily omeprazole 20 mg oral delayed release tablet 20 mg = 1 Tab, Oral, Daily potassium chloride 20 mEq oral tablet, extended release 20 mEq = 1 Tab, Oral, BID simvastatin 40 mg oral tablet 40 mg = 1 Tab, Oral, At Bedtime topiramate 25 mg oral capsule 25 mg = 1 Cap, Oral, BID Tums 500 mg oral tablet, chewable 500 mg = 1 Tab, PRN, Chew, BID Allergies (1) Active Reaction Biaxin Acid reflux Jamila, Chiquis Hicks, PharmD, MPH, BCPS Electronically signed by Aleks [facility] Conversion Bias Cutter Cerner at 07/24/2022 3:51 PM CDT documented in this encounter Plan of Treatment Not on file documented as of this encounter Visit Diagnoses Not on filedocumented in this encounter Care Teams Family Nurse Relationship Specialty Start Date End Date Juan José Kendall MD [address] [facility] [address] [place] [id number] PCP - General Family Medicine 12/25/22 Juan José Kendall MD [address] [facility] [address] [place] [phone] Referring Physician Family Medicine 12/25/22 documented as of this encounter
--- OUTSIDE RECORDS SUMMARY | 2024-03-11 09:22 | XMS_ITS | Encounter Summary ---
Author Organization [employer] Address [address] [place] [address] Care Team Providers Care Email Designer Name Role Phone Juan José Kendall MD Primary Care Provider + [phone] Juan José Kendall MD Unavailable [phone] Encounter Details Date Type Department Care Team (Late st Contact Info) Description 09/05/2018 Transcribed Document [facility] Family [place] [facility] [place] [address] ProviderLaurie MD [address] [place] [address] Social History Tobacco Use [...] Note - Laurie ProviderMD - 09/05/2018 5:00 AM CDT Chart Check - Review Order Profile Entered On: 09/05/2018 4:44 EDT Performed On: 09/05/2018 5:00 EDT by Anali Hicks Rn Chart Check Powerplans Initiated/Discontinued as Appropriate : Yes All Active Orders Reviewed : Yes Anali Hicks Rn - 09/05/2018 4:44 EDT documented in this encounter Plan of Treatment Not on file documented as of this encounter Visit Diagnoses Not on filedocumented in this encounter Care Teams Email Designer Relationship Specialty Start Date End Date Juan José Kendall MD [address] [place] [phone] PCP - General Family Medicine 12/25/22 Juan José Kendall MD [address] [place] [phone] Referring Physician Family Medicine 12/25/22 documented as of this encounter
--- OUTSIDE RECORDS SUMMARY | 2024-03-11 09:22 | XMS_ITS | Encounter Summary ---
Author Organization [employer] Address [address] [place] [address] Care Team Providers Care Mine Superintendent Name Role Phone Juan José Kendall MD Primary Care Provider +- [phone] Juan José Kendall MD Unavailable [phone] Encounter Details Date Type Department Care Team (Late st Contact Info) Description 09/01/2018 Transcribed Document [facility] [place] [facility] [place] [address] ProviderLaurie MD [address] [place] [address] Social History Tobacco Use Types Packs/Day Years Used Date Smoking Tobacco: Never Assessed Comments Unknown Sex and Gender Information Value Date Recorded Sex Assigned at Not on file Legal Sex Female 2:23 PM CDT Gender Identity Not on file Sexual Orientation Not on file documented as of this encounter Miscellaneous Notes * Cerner Conversion Note - Laurie ProviderMD - 09/01/2018 2:34 PM CDT Patient: TRUDI BLAIR Age: 63 years Sex: Female : 1955 Associated Diagnoses: None Author: KIMBERLY CANTU MD-RAD Pre-OP/Procedure Diagnosis: _Foot infection Post-OP/Procedure Diagnosis: Need for assisted access Procedure Performed: Tunnelled central venous catheter placement Procedural MD: Gilma Inside Solar Sales Consultant: None Sedation: 2 m gVersed and 50 micrograms of Fentanyl IV Findings: Successful right IJ tunnelled dual lumen Power Dumont catheter placement Complications: None EBL: Min Specimen(s) Removed: None Full report to follow. documented in this encounter Plan of Treatment Not on file documented as of this encounter Visit Diagnoses Not on filedocumented in this encounter Care Teams Mine Superintendent Relationship Specialty Start Date End Date Juan José Kendall MD [address] [facility] [address] [place] [id number] PCP - General Family Medicine 12/25/22 Juan José Kendall MD [address] [facility] [address] [place] [phone] Referring Physician Family Medicine 12/25/22 documented as of this encounter
--- OUTSIDE RECORDS SUMMARY | 2024-03-11 09:22 | XMS_ITS | Encounter Summary ---
Author Organization [employer] Address [address] [place] [address] Care Team Providers Care Remote Sensing Technologist Name Role Phone Juan José Kendall MD Primary Care Provider +- [phone] Juan José Kendall MD Unavailable [phone] Encounter Details Date Type Department Care Team (Late st Contact Info) Description 09/05/2018 Transcribed Document [facility] [place] [place] [address] ProviderLaurie MD [address] [place] [address] Social History Tobacco Use Types Packs/Day Years Used Date Smoking Tobacco: Never Assessed Comments Unknown Sex and Gender Information Value Date Recorded Sex Assigned at Not on file Legal Sex Female 2:23 PM CDT Gender Identity Not on file Sexual Orientation Not on file documented as of this encounter Miscellaneous Notes * Cerner Conversion Note - Historical ProviderMD - 09/05/2018 3:00 PM CDT [facility] Inpatient Documentation Entered On: 09/06/2018 9:50 EDT Performed On: 09/05/2018 15:00 EDT by Ritu Joseph Rn-Enterostomal [facility] Admission Date : Admit Date 08/30/2018 14:25 [...] Arthritis due to other bacteria, unspecified knee Admitting Diagnosis ST : Reason for Admission LEFT KNEE SEPTIC ARTHRITIS WOCN Assessment Summary : While doing skin assessments for NDNQI Survey, noted that patient had stage 1 pressure injuries on both inner thighs from parekh catheter. The areas were red non blanchable erythema. Bedside Nurse informed of these areas. Also noted a medical adhesive reaction on inner aspect of left arm that patient states is from stat lock from a former PICC. No pictures or measurements taken during skin assessment survey. Silicone foam border dressing in place. Ritu Joseph Rn-Enterostomal - 09/06/2018 9:40 EDT Electronically signed by [facility] Conversion Soil Engineer Cerner at 07/24/2022 3:37 PM CDT documented in this encounter Plan of Treatment Not on file documented as of this encounter Visit Diagnoses Not on filedocumented in this encounter Care Teams Remote Sensing Technologist Relationship Specialty Start Date End Date Juan José Kendall MD [address] [facility] [address] [place] [id number] PCP - General Family Medicine 12/25/22 Juan José Kendall MD [address] [facility] [address] [place] [phone] Referring Physician Family Medicine 12/25/22 documented as of this encounter
--- OUTSIDE RECORDS SUMMARY | 2024-03-11 09:22 | XMS_ITS | Encounter Summary ---
Author Organization [employer] Address [address] [place] [address] Care Team Providers Care Ham Sawyer Name Role Phone Juan José Kendall MD Primary Care Provider +- [phone] Juan José Kendall MD Unavailable [phone] Encounter Details Date Type Department Care Team (Late st Contact Info) Description 09/05/2018 Transcribed Document [facility] Family [place] [address] ProviderLaurie MD [address] [place] [address] Social History Tobacco Use Types Packs/Day [...] Laurie ProviderMD - 09/05/2018 8:32 AM CDT Patient: TRUDI BLAIR Age: 63 years Sex: Female : 1955 Associated Diagnoses: None Author: LINDA MARQUEZ MD-NEP Subjective stable overnight. just finished PT. feels edema getting better Objective VS/Measurements Vitals Signs (last 24 hrs) Last Charted Minimum Maximum Temp 98.3 (SEP 05 06:15) 97.9 (SEP 04 14:05) 98 (SEP 04 18:20) Apical HR L 58 (SEP 05 08:30) L 58 (SEP 05 08:30) L 58 (SEP 05 08:30) Mon HR 58 (SEP 05 06:15) 58 (SEP 05 06:15) 84 (SEP 04 18:20) Resp Rate 16 (SEP 05 06:15) 16 (SEP 04 10:25) 16 (SEP 04 10:25) SBP 128 (SEP 05 06:15) 123 (SEP 04 10:25) 138 (SEP 04 18:20) DBP 60 (SEP 05 06:15) L 57 (SEP 04 10:25) 63 (SEP 04 14:05) MAP 76 (SEP 05 06:15) 72 (SEP 05 02:15) 76 (SEP 05 06:15) SpO2 96 (SEP 05 06:15) 95 (SEP 04 14:05) 98 (SEP 05 02:15) Intake & Output Totals Last 24 Hours (7a-7a) Intake (14 Events) Medications (571 mL) Output (6 Events) Parekh Catheter (3450 mL) Input Total: 571 mL Output Total: 3450 mL Balance: -2879 mL General: No acute distress, WDWF. Eye: [...] Review Labs (Last four charted values) WBC 6.6 [...] 01) Na 143 (SEP 05) 146 (SEP 02) 144 (SEP 03) 146 (SEPTEMBER 02) K L 3.2 (SEP 05) L 3.1 (SEP 02) L 3.2 (SEP 02) 3.6 (SEP 03) Cl 111 (SEP 03) H 114 (SEP 02) H 114 (SEP 01) H 115 (SEPTEMBER 02) CO2 23 (SEP 03) 23 (SEP 02) 23 (SEP 03) 22 (SEPTEMBER 02) BUN H 26 (SEP 05) H 28 (SEP 04) H 31 (SEP 03) H 36 (SEPTEMBER 02) Cr H 1.87 (SEP 05) H 1.90 (SEP 02) H 1.95 (SEP 03) H 2.06 (SEPTEMBER 02) Glu R 91 (SEP 05) 94 (SEP 04) 84 (SEP 03) 98 (SEPTEMBER 02) Ca [...] ALK P 60 (SEP 05) 57 (SEP 02) 60 (SEP 03) 57 (SEPTEMBER 01) T Bili 0.5 (SEP 05) 0.4 (SEP 04) 0.4 (SEP 03) 0.3 (SEPTEMBER 01) PTN L 4.6 (SEP 05) L 4.2 (SEP 02) L 4.1 (SEP 03) L 3.8 (SEPTEMBER 01) ALB L 2.3 (SEP 03) L 2.0 (SEP 02) L 1.7 (SEP 03) L 1.3 (SEPTEMBER 01) Impression and Plan ARF: Cr conitues to slowly improve. nonoliguric UOP with diuresis. Cr was intially elevated to 2.4 on admit from [facility] 0.9 06/2018. pt with multiple admssion to outside hosptial. Appears Cr up to 2.9 08/28. transferred here with multiple infections, hypotension, multiple abx. Pharmacy doseing vanc. avoid vanc toxicity. HTN: BP stable. watch with diuresis. Anemia: transfuse PRN for Hgb < 7. Met acidosis: better. cut back on po bicarb Edema: better. neg volume past few days. 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 getting abx high risk and complexity pt Electronically signed by Interface, [facility] Conversion Voltage Tester Cerner at 07/24/2022 3:38 PM CDT documented in this encounter Plan of Treatment Not on file documented as of this encounter Visit Diagnoses Not on filedocumented in this encounter Care Teams Ham Sawyer Relationship Specialty Start Date End Date Juan José Kendall MD [address] [facility] [address] [place] [id number] PCP - General Family Medicine 12/25/22 Juan José Kendall MD [address] [facility] [address] [place] [id number] Referring Physician Family Medicine 12/25/22 documented as of this encounter
--- OUTSIDE RECORDS SUMMARY | 2024-03-11 09:22 | XMS_ITS | Encounter Summary ---
Author Organization [employer] Address [address] [place] [address] Care Team Providers Care Epic Trainer Name Role Phone Juan José Kendall MD Primary Care Provider +- [phone] Juan José Kendall MD Unavailable [phone] Encounter Details Date Type Department Care Team (Late st Contact Info) Description 09/03/2018 Transcribed Document [facility] [place] [facility] [place] [address] ProviderLaurie MD [address] [place] [address] Social History Tobacco Use Types Packs/Day Years Used Date Smoking Tobacco: Never Assessed Comments Unknown Sex and Gender Information Value Date Recorded Sex Assigned at Not on file Legal Sex Female 2:23 PM CDT Gender Identity Not on file Sexual Orientation Not on file documented as of this encounter Miscellaneous Notes * Cerner Conversion Note - Laurie ProviderMD - 09/03/2018 4:56 PM CDT Patient: TRUDI BLAIR Age: 63 [...] alert comfortable, asympt. , pain under control, ???Hemoglobin dropped back again after she had 2 units of transfusion to 6.5 and she had an additional 2 units transfusion of packed RBCs. That is no hematochezia or melena. No seeping blood from the surgical site. ???Started on PT/OT and getting up to the side of the bed ???Has a Groshong ???Has a wound VAC ???Had anemia study done with low B12, low iron and low iron stores ???Slow progressive improvement of renal function ???TSH is slightly elevated Review of Systems Constitutional: No fever, No [...] mL 700 mg 14 mL, IV Piggyback, [id number] docusate sodium 100 mg cap 100 mg [...] Stress incontinence Physical Examination VS/Measurements Vital Measurements 09/03/2018 14:21 EDT Temperature Source Oral Temperature Mode Fahrenheit Temperature, Fahrenheit 98.5 Deg F Heart Rate Monitored 69 bpm Respiratory Rate 16 Breaths/Min Systolic Blood Pressure 118 mmHg Diastolic Blood Pressure 51 mmHg LOW Oxygen Saturation 96 % Oxygen [...] / Management Results review: All Results 09/02/2018 22:15 EDT Folate Level 8.75 ng/mL Vitamin B12 Level 296 pg/mL TSH 5.710 mcInt Units/mL HI Iron Level 11 mcg/dL LOW % Iron Saturation 10.6 % LOW Ferritin Level 169.0 ng/mL TIBC 104.0 mcg/dL LOW 09/02/2018 20:51 EDT Hgb 6.5 Gram/dL LOW Hct 19.9 % LOW 09/02/2018 19:11 EDT Hgb 6.6 Gram/dL LOW Hct 20.7 % LOW 09/02/2018 6:49 EDT Hgb 5.0 Gram/dL CRIT [...] Bun/Creatinine 17.5 Calcium Level 7.2 mg/dL LOW . Impression and Plan Diagnosis Sepsis - [...] renal function, blood glucose, and urine output. -Iron replacement -B12 replacement -Pain control -DVT prophylaxis -Close monitoring fluid and electrolytes -When necessary nebs -For risk precautions -Sleep apnea precautions -Continue on antibiotics as recommended by infectious disease. Orders Order Profile (Selected) Inpatient Orders Ordered Ferrlecit: 250 mg 20 mL, IV Piggyback, Inj, Daily, Administer over 2 Hour(s), order duration: 4 Hour(s), Routine, Start 09/04/18 9:00:00 EDT, Stop 09/04/18 9:00:00 EDT, 135 mL/Hr Vitamin B12: 1,000 mcg, SubCutaneous, Inj, Daily, order duration: 3 Hour(s), Routine, Start 09/04/18 9:00:00 EDT, Stop 09/04/18 9:00:00 EDT Ordered (Scheduled) CBC w/ Auto Diff: Specimen Type: Blood, AM Draw collect, 09/04/18 4:00:00 EDT, 1-Time, Stop: 09/04/18 4:00:00 EDT, Lab Collect CMP Comprehensive Metabolic Panel: Specimen Type: Blood, AM Draw collect, 09/04/18 4:00:00 EDT, 1-Time, Stop: 09/04/18 4:00:00 EDT, Lab Collect. documented in this encounter Plan of Treatment Not on file documented as of this encounter Visit Diagnoses Not on filedocumented in this encounter Care Teams Epic Trainer Relationship Specialty Start Date End Date Juan José Kendall MD [address] [facility] [address] [place] [address] PCP - General Family Medicine 12/25/22 Juan José Kendall MD [address] [facility] [address] [place] [address] Referring Physician Family Medicine 12/25/22 documented as of this encounter
--- OUTSIDE RECORDS SUMMARY | 2024-03-11 09:22 | XMS_ITS | Encounter Summary ---
Author Organization [employer] Address [address] [place] [address] Care Team Providers Care Press Department Manager Name Role Phone Juan José Kendall MD Primary Care Provider [phone]- [phone] Juan José Kendall MD Unavailable [phone] Encounter Details Date Type Department Care Team (Late st Contact Info) Description 09/01/2018 Transcribed Document [facility] [place] [facility] [place] [address] ProviderLaurie MD [address] [place] [address] [id number] Social History Tobacco Use Types Packs/Day Years Used Date Smoking Tobacco: Never Assessed Comments Unknown Sex and Gender Information Value Date Recorded Sex Assigned at Not on file Legal Sex Female 2:23 PM CDT Gender Identity Not on file Sexual Orientation Not on file documented as of this encounter Miscellaneous Notes * Cerner Conversion Note - Historical ProviderMD - 09/01/2018 11:10 AM CDT Treatment Intervention, OT Entered On: 09/02/2018 12:57 EDT Performed On: 09/02/2018 12:46 EDT by BOSTON FORDE OTR/Ivan General Information, OT Visit Type, OT : Treatment Note Patient Orders : Order Date Order Ordering 08/31/2018 18:29 OT Evaluation and Treatment Ordered By: JONG SANTACRUZ MD-ORT 09/01/2018 11:10 Occupational Therapy Additional Tx Ordered By: Active Diagnoses : 09/01/2018 00:00 Acidosis 09/01/2018 [...] 00:00 Urinary tract infection, site not specified Admission Date : 08/30/2018 14:25 Assisted by, OT : sales and marketing assistant (GAS SINGER), technical services consultant/aide Personal Devices : Personal Devices No Devices Recorded Assistive Devices : Assistive Devices No Devices Recorded BOSTON FRODE OTR/L - 09/02/2018 12:46 EDT General Status Patient Received Status : Supine in bed, Other: KI, wound vac, scds Treatment Start Time : 09/02/2018 8:41 EDT Patient Left Status : Supine in bed, RN/PCT informed, Family/Visitors at bedside, All needs met and within reach, Other: KI, scds, wound vac, RN/PCT Informed Comment : RN Ok'd to tx, ID and verified Treatment End Time : 09/02/2018 9:04 EDT Treatment Time : 23 Minute(s) BOSTON FORDE OTR/L - 09/02/2018 12:46 EDT Education OT Occupational Therapy Education Grid Activity of Daily Living Training : Needs further teaching Functional Mobility Training : Needs further teaching BOSTON FORDE OTR/L - 09/02/2018 12:46 EDT Plan of Care, OT OT Tx Plan/Goals Established w Patient : Yes BOSTON FORDE OTR/L - 09/02/2018 12:46 EDT Surveyor Geodetic Goals, OT Other LTG Grid Goal #1 Goal #2 Goal : Pt will return demo of bilateral UE theraband exercises. Pt will complete OOB ADL transfer assessment assistance prn. Date to Meet : 09/07/2018 EDT 09/07/2018 EDT Goal Status : Initial goal Initial goal EULALAURA VIGILDEBO CRUZ/Ivan - 09/02/2018 12:46 EDT BOSTON FORDE OTR/Ivan - 09/02/2018 12:46 EDT Treatment Note Subjective Comment : pt agrees to tx Additional Objective Information : pt supine in bed and agreeable to sitting. pt with KI LLE, max assist x2-3 person to complete supine to sit EOB with HOB raised to assist. pt having pain and is also nauseated limiting EOB activities. pt educated on BUE AROM to complete and makes attempt however nausea preventing participation . pt tolerated EOB for ~10 minutes with SBA, max x2 -3 person sit to supine, total x3 to scoot to HOB while in trendelenburg. pt left comfortable with all needs in place. Assessment : pt will continue to benefit from OT while inpt to improve level of function, rehab placement recommended , pt coopertive and wants to improve Plan for Treatment : continue POC EULA DEBO MEAD/Ivan - 09/02/2018 12:46 EDT Pain Assessment Pain Scaled Used : 0-10 Pain scale Pain Score Pre-Intervention : 5 Location : Leg, left Pain Comment : pt reports medicated prior to tx EULA DEBO MEAD/Ivan - 09/02/2018 12:46 EDT Image 1 - Images currently included in the form version of this document have not been included in the text rendition version of the form. [facility] OT Charges OT Selfcare/Hm Mgmt Ea 15 Min : 2 BOSTON FORDE OTR/Ivan - 09/02/2018 12:46 EDT documented in this encounter Plan of Treatment Not on file documented as of this encounter Visit Diagnoses Not on filedocumented in this encounter Care Teams Press Department Manager Relationship Specialty Start Date End Date Juan José Kendall MD [address] [facility] [address] [place] [address] PCP - General Family Medicine 12/25/22 Juan José Kendall MD [address] [facility] [address] [place] [id number] Referring Physician Family Medicine 12/25/22 documented as of this encounter
--- OUTSIDE RECORDS SUMMARY | 2024-03-11 09:22 | XMS_ITS | Encounter Summary ---
Author Organization [employer] Address [address] [place] [address] Care Team Providers Care Grappler Name Role Phone Juan José Kendall MD Primary Care Provider +- [phone] Juan José Kendall MD Unavailable [phone] Encounter Details Date Type Department Care Team (Late st Contact Info) Description 08/31/2018 Transcribed Document [facility] [place] [facility] [place] [address] Laurie Garcia MD [address] [place] [address] Social History Tobacco Use Types Packs/Day Years Used Date Smoking Tobacco: Never Assessed Comments Unknown Sex and Gender Information Value Date Recorded Sex Assigned at Not on file Legal Sex Female 2:23 PM CDT Gender Identity Not on file Sexual Orientation Not on file documented as of this encounter Miscellaneous Notes * Cerner Conversion Note - Historical ProviderMD - 08/31/2018 5:27 PM CDT DATE OF PROCEDURE: 08/31/2018 PREOPERATIVE DIAGNOSIS(ES): Chronic persistent infection, 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 PROCEDURE: Removal of previously inserted polypropylene mesh and hardware, explantation of left total knee, insertion of polymethylmethacrylate spacer. SURGEON: Shay Guerrero MD MANAGER PRODUCT SUPPORT: Efren Garcia PA-C INDICATION FOR SURGERY: Patient had extensor apparatus reconstruction done approximately two months ago which she subsequently had localized dehiscence of her wound and turned out to have a deep infection and was temporarily septic, treated at another hospital and transferred to [place] for definitive care. PROCEDURE IN DETAIL: The patient was taken to the operating room and after satisfactory general anesthesia, she had her IV changed to a deep line in her subclavian vein performed by Anesthesia. Patient then had her left knee thoroughly scrubbed, prepped, and draped in the usual manner. The leg was elevated, but was not exsanguinated and the tourniquet about the upper thigh was inflated to 350 mmHg. Longitudinal incision was made on the anterior aspect of the knee, excising the area of the skin breakdown and drainage in an elliptical manner. Patient bled excessively, it was determined that she had the effect of a venous tourniquet, therefore the tourniquet was released and no further tourniquet control was utilized. Incision was carefully carried down to the extensor apparatus. There was communication of the infected area into her joint. Cultures were obtained. The previously performed extensor reconstruction using the polypropylene mesh at least at this point seemed to be healing. She had some incorporation of fibrous tissue into the polypropylene and it was holding the knee in extension as was the intent. Unfortunately, this required removal since the patient had a chronic infection along with the explantation of the joint being necessary. The polypropylene mesh was meticulously dissected free from the adjacent quadriceps and the screw and washer removed from its insertion into the tibial tubercle. The methacrylate which was help holding this in place was then broken into small pieces with an osteotome and meticulously removed. This ultimately allowed the polypropylene mesh to be removed along with the small wad of bone cement. The medial parapatellar incision was made and the prosthesis exposed. The prosthesis was meticulously removed using a combination of curved rigid osteotomes and multiple different flexible osteotomes along with a sagittal saw. The prostheses were removed along with the original cement. The wound was copiously irrigated with antibiotic solution. It was determined that the patient was not a candidate for total knee revision as her extensor apparatus was nonfunctional and felt to be irreparable. Therefore, instead of utilizing the molds, a large wad of cement was created and with longitudinal traction applied through the ankle, was inserted between the tibia and the femur with gentle motion to prevent it from interdigitating in the bone, but acting as an extensor block. The wound was then copiously irrigated with antibiotic solution. The capsule and muscles were then closed with multiple interrupted sutures of #2 Vicryl followed by running suture of #1 PDO Quill. Subcutaneous tissue was closed with #2 and #0 interrupted stitches. The skin was closed with several interrupted sutures of 2-0 nylon using a far-near/near-far suture technique. The majority of the skin was closed with mihaela. A sterile Prevena dressing was applied. Patient then was placed in a very carefully padded knee immobilizer and transferred to the recovery room in satisfactory condition. Shay Guerrero M.D. Dict: 08/31/2018 17:27:55 Trans: 08/31/2018 22:28:53 CC1: Shay Guerrero M.D. Electronically signed by Aleks, [facility] Conversion Vacuum Plastic Forming Machine Operator Cerner at 07/24/2022 3:52 PM CDT documented in this encounter Plan of Treatment Not on file documented as of this encounter Visit Diagnoses Not on filedocumented in this encounter Care Teams Grappler Relationship Specialty Start Date End Date Juan José Kendall MD [address] [place] [address] [facility] [address] [place] [phone] PCP - General Family Medicine 12/25/22 Juan José Kendall MD [address] [place] [address] [address] [place] [phone] Referring Physician Family Medicine 12/25/22 documented as of this encounter
--- OUTSIDE RECORDS SUMMARY | 2024-03-11 09:22 | XMS_ITS | Encounter Summary ---
Author Organization [employer] Address [address] [place] [address] Care Team Providers Care Perioperative Educator Name Role Phone Juan José Kendall MD Primary Care Provider +- [phone] Juan José Kendall MD Unavailable [phone] Encounter Details Date Type Department Care Team (Late st Contact Info) Description 09/04/2018 Transcribed Document [facility] [place] [address] ProviderLaurie MD [address] [place] [address] Social History Tobacco Use Types Packs/Day Years Used Date Smoking Tobacco: Never Assessed Comments Unknown Sex and Gender Information Value Date Recorded Sex Assigned at Not on file Legal Sex Female 2:23 PM CDT Gender Identity Not on file Sexual Orientation Not on file documented as of this encounter Miscellaneous Notes * Cerner Conversion Note - Historical ProviderMD - 09/04/2018 2:00 AM CDT Metal Cut Off Saw Tender Details Entered On: 09/04/2018 3:11 EDT Performed On: 09/04/2018 2:00 EDT by Dayday Crump RN Order Details Transport Mode Order Detail : Bed (including specialty) Isolation Precautions Order Detail : Contact precautions Order Detail : 0 IV Order Detail : 0 Oxygen Order Detail : 0 Nurse Collect Order Detail : 0 Lift/Transfer : Maximal assist Central Line Order Detail : Yes Room Service : Appropriate Arterial Line : No Dayday Crump RN - 09/04/2018 3:11 EDT Electronically signed by Aleks [facility] Conversion Sanitation Truck Cleaner Cerner at 07/24/2022 3:44 PM CDT documented in this encounter Plan of Treatment Not on file documented as of this encounter Visit Diagnoses Not on filedocumented in this encounter Care Teams Perioperative Educator Relationship Specialty Start Date End Date Juan José Kendall MD [address] [facility] [address] [place] [id number] PCP - General Family Medicine 12/25/22 Juan José Kendall MD [address] [facility] [address] [place] [phone] Referring Physician Family Medicine 12/25/22 documented as of this encounter
--- OUTSIDE RECORDS SUMMARY | 2024-03-11 09:22 | XMS_ITS | Encounter Summary ---
Author Organization [employer] Address [address] [place] [address] Care Team Providers Care Crib Pad Maker Name Role Phone Juan José Kendall MD Primary Care Provider +- [phone] Juan José Kendall MD Unavailable [phone] Encounter Details Date Type Department Care Team (Late st Contact Info) Description 09/02/2018 Transcribed Document [facility] [place] [facility] [address] ProviderLaurie MD [address] [place] [address] Social History Tobacco Use Types Packs/Day Years Used Date Smoking Tobacco: Never Assessed Comments Unknown Sex and Gender Information Value Date Recorded Sex Assigned at Not on file Legal Sex Female 2:23 PM CDT Gender Identity Not on file Sexual Orientation Not on file documented as of this encounter Miscellaneous Notes * Cerner Conversion Note - Laurie ProviderMD - 09/02/2018 10:56 AM CDT Patient: TRUDI BLAIR Age: 63 [...] repair. She was more recently admitted to [facility] x2 earlier this month on [...] ceftriaxone well. Groshong catheter was placed yesterday ROS: as above Medications by Classification Antimicrobials cefTRIAXone + Sodium Chloride 0.9% intravenous solution 50 m - 2 Gram, IV Piggyback, [id number], infuse over 30 Minute(s), Routine DAPTOmycin + Sodium Chloride 0.9% intravenous solution 50 mL - 700 mg, IV Piggyback, [id number], infuse over 30 Minute(s) Cardiovascular metoprolol (Lopressor) [...] Comment, PRN for Other (See Comment), Routine Allergies (1) Active Reaction Biaxin Acid reflux Vitals Signs (last 24 hrs) Last Charted Minimum Maximum Temp 98.8 (SEPTEMBER 02 10:38) 97.8 (SEPTEMBER 01 11:43) 98.4 (SEPTEMBER 01 15:37) Apical HR H 104 (SEPTEMBER 01 12:01) H 104 (SEPTEMBER 01 12:) H 104 (SEPTEMBER 01 12:) Mon HR 87 (SEPTEMBER 02 10:38) 87 (SEPTEMBER 02 10:38) 104 (SEPTEMBER 01:29) Resp Rate 16 (SEPTEMBER 02 10:38) 16 (SEPTEMBER 01 11:43) 18 (SEPTEMBER 01 15:37) SBP 109 (SEPTEMBER 02 10:38) L 89 (SEPTEMBER 01 22:29) 120 (SEPTEMBER 01 18:39) DBP L 46 (SEPTEMBER 02 10:38) L 31 (SEPTEMBER 01 18:39) L 56 (SEPTEMBER 01 11:43) MAP 61 (SEPTEMBER 02 10:38) 46 (SEPTEMBER 01 18:39) 65 (SEPTEMBER 01 11:43) SpO2 98 (SEPTEMBER 02 10:38) 97 (SEPTEMBER 01 18:39) 99 (SEPTEMBER 01:29) Gen: NAD. morbid obesity. pleasant HEENT: PERRL anicteric. no conjunctival hemorrhages. no thrush Chest: no chest wall deformities. right-sided Groshong catheter in place, no erythema at site. Pulm: CTAB. non-labored breathing on room air CV: RRR. no m/r/g. no peripheral edema Abd: obese abdomen. soft. non-tender, non-distended. normal bowel sounds. no HSM : no parekh catheter present MSK: left leg in partial cast/surgical dressings (has been since 06/21 operation per patient). wound VAC in place. no effusion noted [...] Clearance (Current Encounter/Past 24 Hours) Creatinine Level 2.06 mg/dL HI 09/02/2018 04:45 Bun/Creatinine 17.5 09/02/2018 04:45 Estimated Creatinine Clearance 25.83 mL/Min 09/02/2018 04:45 Micro: OSH micro results (per records provided in chart): 08/10 blood culture: MRSA (Vanc CATHY=1) 08/10 urine cx: enterococcus faecalis 08/10 wound culture: MRSA, staph epi 08/19 blood cx: staph hominis 08/19 blood cx: enterococcus faecalis, vanc-S SJE micro results: 08/30/18 blood culture x 2: ngtd Radiology Results (Last 48 hours) [id number] -- 08/30/2018 14:25 CR Knee 1 or 2 Vws LT (08/31/2018 17:56) Result: LEFT KNEE SERIESHISTORY: Postoperative.COMPARISON: June 2018FINDINGS: A 2 view exam was obtained. Status post explantation andspacer placement. Patella also noted. Expected postoperative changes arenoted. Detail is limited from overlying cast or bandage. IMPRESSION: Postoperative changes as above. XA CVC Tunneled WO Pump/Port (09/01/2018 16:59) Result: TRUDI ELLIS: 1955TUNNELED CENTRAL VENOUS CATHETER PLACEMENTHISTORY: Wound [...] suture. The catheter was then heparinized per robinufacturer's instruction.IMPRESSION: Successful placement of a tunneled power Dumont cathetervia the right internal jugular vein under ultrasound and fluoroscopicguidance. No complications.THANK YOU FOR ALLOWING US TO PARTICIPATE IN THE CARE OF YOUR PATIENT. Impression: -MRSA septicemia- grew from / blood cultures [...] a source - TTE pending continue daptomycin discontinue ceftriaxone status post groshong cath placement She will [...] discharge ( unless she is discharged to [facility] rehabilitation and she can be followed by one of my partners there). clinic to call the patient with appointment instructions. 5. Could switch the patient to OPAT through [facility] when she is discharged from rehabilitation facility. 6. attention triage staff at [facility]: Please track the patient's cultures from her left knee 7. please fax copy of this note a [phone] getting transfused by the primary team due to low hemoglobin. Once she is stable from this standpoint and no signs of active bleeding and if TTE is negative for infective endocarditis, then patient can be discharged to rehabilitation on IV daptomycin from my standpoint. complex set of medical issues requiring a high level of medical decision making. Patient has risk for further morbidity including loss of her limb. documented in this encounter Plan of Treatment Not on file documented as of this encounter Visit Diagnoses Not on filedocumented in this encounter Care Teams Crib Pad Maker Relationship Specialty Start Date End Date Juan José Kendall MD [address] [facility] [address] [place] [address] PCP - General Family Medicine 12/25/22 Juan José Kendall MD [address] [facility] [address] [place] [address] Referring Physician Family Medicine 12/25/22 documented as of this encounter
--- OUTSIDE RECORDS SUMMARY | 2024-03-11 09:22 | XMS_ITS | Encounter Summary ---
Author Organization [employer] Address [address] [place] [address] Care Team Providers Care Industrial Relations Commissioner Name Role Phone Juan José Kendall MD Primary Care Provider +- [phone] Juan José Kendall MD Unavailable [phone] Encounter Details Date Type Department Care Team (Late st Contact Info) Description 09/03/2018 Transcribed Document [facility] [place] [facility] [place] [address] ProviderLaurie MD [address] [place] [address] Social History Tobacco Use Types Packs/Day Years Used Date Smoking Tobacco: Never Assessed Comments Unknown Sex and Gender Information Value Date Recorded Sex Assigned at Not on file Legal Sex Female 2:23 PM CDT Gender Identity Not on file Sexual Orientation Not on file documented as of this encounter Miscellaneous Notes * Cerner Conversion Note - Historical ProviderMD - 09/03/2018 2:00 AM CDT Psych Assistant Details Entered On: 09/03/2018 1:05 EDT Performed On: 09/03/2018 2:00 EDT by Dayday Crump RN Order [...] Line : No Dayday Crump RN - 09/03/2018 1:05 EDT documented in this encounter Plan of Treatment Not on file documented as of this encounter Visit Diagnoses Not on filedocumented in this encounter Care Teams Industrial Relations Commissioner Relationship Specialty Start Date End Date Juan [...]
--- OUTSIDE RECORDS SUMMARY | 2024-03-11 09:22 | XMS_ITS | Encounter Summary ---
Author Organization [employer] Address [address] [place] [address] Care Team Providers Care Hand Tufter Name Role Phone Juan José Kendall MD Primary Care Provider + [phone] Juan José Kendall MD Unavailable [phone] Encounter Details Date Type Department Care Team (Late st Contact Info) Description 09/03/2018 Transcribed Document [facility] [place] [address] ProviderLaurie MD [address] [place] [address] Social History Tobacco Use Types Packs/Day Years Used Date Smoking Tobacco: Never Assessed Comments Unknown Sex and Gender Information Value Date Recorded Sex Assigned at Not on file Legal Sex Female 2:23 PM CDT Gender Identity Not on file Sexual Orientation Not on file documented as of this encounter Miscellaneous Notes * Cerner Conversion Note - Laurie ProviderMD - 09/03/2018 3:08 PM CDT Patient: TRUDI BLAIR Age: 63 years Sex: Female : 1955 Associated Diagnoses: None Author: SANDEE QURESHI MD-NEP Subjective No new complaints. Stable overnight. Denies N/VCP, SOB. Pt reports edema better. Creatinine better Objective VS/Measurements Vitals Signs (last 24 hrs) Last Charted Minimum Maximum Temp 98.5 (SEP 03 14:21) 97.7 (SEPTEMBER 02 15:28) 99.1 (SEP 03 01:46) Mon HR 69 (SEP 03 14:21) 58 (SEP 03 05:00) 81 (SEP 03 00:21) Resp Rate 16 (SEP 03 14:21) 16 (SEPTEMBER 02 15:13) 18 (SEPTEMBER 02 23:08) SBP 118 (SEP 03 14:21) 105 (SEPTEMBER 02 15:13) 135 (SEP 03 04:55) DBP L 51 (SEP 03 14:21) L 42 (SEPTEMBER 02 15:13) 61 (SEP 03 02:52) MAP 62 (SEP 03 10:56) 58 (SEPTEMBER 02 15:13) 75 (SEP 03 04:55) SpO2 96 (SEP 03 14:21) 96 (SEPTEMBER 02 22:00) 100 (SEPTEMBER 02 16:22) Intake & Output Totals Last 24 Hours (7a-7a) Intake (3 Events) Medications (74.5 mL) Output (2 Events) Parekh Catheter (550 mL) Input Total: 74.5 mL Output Total: 550 mL Balance: -475.5 mL General: No acute distress, WDWF. Eye: Extraocular movements are intact, PER. HENT: Normocephalic, Oral mucosa is moist. Neck: Supple, No jugular venous distention. Respiratory: Respirations are non-labored, Symmetrical chest wall expansion. Cardiovascular: Normal rate, + ansarca, Pitting and Non pittting edema. Gastrointestinal: Soft, Non-distended, Normal bowel sounds, obese. Genitourinary: + parekh. Integumentary: Warm, Dry. Neurologic: Alert, Oriented. Psychiatric: Cooperative, Appropriate mood & affect, Normal judgment. Results Review Labs (Last four charted values) WBC 7.6 (SEP 03) H 13.4 (SEPTEMBER 01) 5.3 (AUGUST 31) HB L 8.1 (SEP 03) L 6.5 (SEPTEMBER 02) L 6.6 (SEPTEMBER 02) C 5.0 (SEPTEMBER 02) HCT L 24.9 (SEP 03) L 19.9 (SEPTEMBER 02) L 20.7 (SEPTEMBER 02) C 15.8 (SEPTEMBER 02) Plt L 162 (SEP 03) 188 (SEPTEMBER 01) L 161 (AUGUST 31) Na 144 (SEP 03) 146 (SEPTEMBER 02) 143 (SEPTEMBER 01) 145 (AUGUST 31) K 3.6 (SEP 03) 3.6 (SEPTEMBER 02) 4.4 (SEPTEMBER 01) 3.7 (AUGUST 31) Cl H 114 (SEP 03) H 115 (SEPTEMBER 02) H 115 (SEPTEMBER 01) 112 (AUGUST 31) CO2 23 (SEP 03) 22 (SEPTEMBER 02) L 18 (SEPTEMBER 01) 22 (AUGUST 31) BUN H 31 (SEP 03) H 36 (SEPTEMBER 02) H 33 (SEPTEMBER 01) H 32 (AUGUST 31) Cr H 1.95 (SEP 03) H 2.06 (SEPTEMBER 02) H 2.11 (SEPTEMBER 01) H 2.31 (AUGUST 31) Glu R 84 (SEP 03) 98 (SEPTEMBER 02) H 126 (SEPTEMBER 01) 93 (AUGUST 31) Ca L 6.9 (SEP 03) L 7.2 (SEPTEMBER 02) L 6.8 (SEPTEMBER 01) L 7.2 (AUGUST 31) Lactic 1.5 (AUGUST 30) PT 10.8 (AUGUST 30) INR 1.0 (AUGUST 30) PTT H 40.2 (AUGUST 30) AST 14 (SEP 03) 33 (SEPTEMBER 01) H 42 (AUGUST 31) H 39 (AUGUST 30) ALT L 11 (SEP 03) 18 (SEPTEMBER 01) 19 (AUGUST 31) 16 (AUGUST 30) ALK P 60 (SEP 03) 57 (SEPTEMBER 01) 72 (AUGUST 31) 69 (AUGUST 30) T Bili 0.4 (SEP 03) 0.3 (SEPTEMBER 01) 0.3 (AUGUST 31) 0.2 (AUGUST 30) PTN L 4.1 (SEP 03) L 3.8 (SEPTEMBER 01) L 4.4 (AUGUST 31) L 4.4 (AUGUST 30) ALB L 1.7 (SEP 03) L 1.3 (SEPTEMBER [...] complex pt Patient seen, examined, plan formulated will add diuretics and iv albumin case discussed with Electronically signed by Interface, [facility] Conversion Kelp Or Seagrass Gatherer Cerner at 07/24/2022 3:47 PM CDT documented in this encounter Plan of Treatment Not on file documented as of this encounter Visit Diagnoses Not on filedocumented in this encounter Care Teams Hand Tufter Relationship Specialty Start Date End Date Juan José Kendall MD [address] [place] [id number] PCP - General Family Medicine 12/25/22 Juan José Kendall MD [address] [place] [id number] Referring Physician Family Medicine 12/25/22 documented as of this encounter
--- OUTSIDE RECORDS SUMMARY | 2024-03-11 09:22 | XMS_ITS | Encounter Summary ---
Author Organization [employer] Address [address] [place] [address] Care Team Providers Care Public Records Officer Name Role Phone Juan José Kendall MD Primary Care Provider + [phone] Juan José Kendall MD Unavailable [phone] Encounter Details Date Type Department Care Team (Late st Contact Info) Description 09/04/2018 Transcribed Document [facility] [place] [facility] [address] ProviderLaurie MD [address] [place] [address] Social History Tobacco Use Types Packs/Day Years Used Date Smoking Tobacco: Never Assessed Comments Unknown Sex and Gender Information Value Date Recorded Sex Assigned at Not on file Legal Sex Female 2:23 PM CDT Gender Identity Not on file Sexual Orientation Not on file documented as of this encounter Miscellaneous Notes * Cerner Conversion Note - Laurie Garcia MD - 09/04/2018 10:23 PM CDT Patient: TRUDI BLAIR Age: 63 [...] HIDALGO MD-INT Basic Information awake alert comfortable, ???Improving creatinine level ???Had transfusion of a total 4 units of packed RBCs ???Hemoglobin today is 7.7 ???Low iron ???On IV iron infusion was Ferrlecit ???Urine culture positive for Escherichia coli ???Potassium 3.1 Review of Systems Constitutional: No fever, No [...] 25 Gram 100 mL, IV Piggyback, Q12H bumetanide 1 mg/4 mL inj 2 mg 8 mL, IV Push, Q12H DAPTOmycin + NaCl 0.9% 50 mL 700 mg 14 mL, IV Piggyback, [id number] docusate sodium 100 mg cap 100 mg [...] Piggyback, Daily sodium bicarbonate 650 mg tab 1,300 mg [...] Stress incontinence Physical Examination VS/Measurements Vital Measurements 09/04/2018 18:20 EDT Temperature Source Oral Temperature Mode Fahrenheit Temperature, Fahrenheit 98 Deg F Heart Rate Monitored 84 bpm Respiratory Rate 16 Breaths/Min Systolic Blood Pressure 138 mmHg Diastolic Blood Pressure 61 mmHg Oxygen Saturation 96 % Oxygen Therapy Mode [...] Review / Management Results review: All Results 09/04/2018 3:54 EDT Sodium Level 146 mmol/L [...] % LOW Lymph # 0.94 K/uL LOW [place] % 9.9 % [place] # 0.66 K/uL Eos % 9.6 % HI Eos # 0.64 K/uL HI Baso % 0.4 % Baso # 0.03 K/uL Slide Review No IG# 0 x10(3)/uL IG% 0 % 09/03/2018 6:35 EDT Sodium Level 144 mmol/L Potassium Level 3.6 mmol/L Chloride Level 114 mmol/L HI Carbon Dioxide Level 23 mmol/L Anion Gap 11 Glucose Level 84 mg/dL Blood Urea Nitrogen 31 mg/dL HI Creatinine Level 1.95 mg/dL HI eGFR 31 mL/min/1.73m2 LOW eGFR NonAfrican 26 mL/min/1.73m2 LOW Bun/Creatinine 15.9 Calcium Level 6.9 mg/dL LOW Protein Total 4.1 Gram/dL LOW Albumin Level 1.7 Gram/dL LOW Globulin 2.4 Gram/dL A/G Ratio 0.7 LOW Bilirubin Total 0.4 mg/dL Alk Phos 60 Units/Liter AST 14 Units/Liter ALT 11 Units/Liter LOW WBC 7.6 K/uL RBC 2.78 Million/uL LOW Hgb 8.1 Gram/dL LOW Hct 24.9 % LOW MCV 89.6 fL MCH 29.1 pg MCHC 32.5 Gram/dL Platelet Count 162 K/uL LOW MPV 10.9 fL RDW 16.0 % HI Neut % 69.9 % Neut # 5.29 K/uL Lymph % 15.1 % LOW Lymph # 1.14 K/uL LOW [place] % 9.8 % [place] # 0.74 K/uL Eos % 4.5 % Eos # 0.34 K/uL Baso % 0.4 % Baso # 0.03 K/uL Slide Review No IG# 0 x10(3)/uL IG% 0 % . Condition: Stable. Impression and Plan [...] IV antibiotics as recommended by infectious disease -We will follow nephrology recommendations -DVT prophylaxis -Close monitoring fluid and electrolytes -When necessary nebs -Close monitoring H&H E-Sleep apnea precautions -Fall risk precautions. Orders Order Profile (Selected) Inpatient Orders Ordered (Scheduled) CBC w/ Auto Diff: Specimen Type: Blood, AM Draw collect, 09/05/18 4:00:00 EDT, 1-Time, Stop: 09/05/18 4:00:00 EDT, Lab Collect CMP Comprehensive Metabolic Panel: Specimen Type: Blood, AM Draw collect, 09/05/18 4:00:00 EDT, 1-Time, Stop: 09/05/18 4:00:00 EDT, Lab Collect CRP C-Reactive Protein: Specimen Type: Blood, AM Draw collect, 09/05/18 4:00:00 EDT, 1-Time, Stop: 09/05/18 4:00:00 EDT, Lab Collect ESR Sedimentation Rate Auto: Specimen Type: Blood, AM Draw collect, 09/05/18 4:00:00 EDT, 1-Time, Stop: 09/05/18 4:00:00 EDT, Lab Collect Magnesium Level: Specimen Type: Blood, AM Draw collect, 09/05/18 4:00:00 EDT, 1-Time, Stop: 09/05/18 4:00:00 EDT, Lab Collect Phosphorus Level: Specimen Type: Blood, AM Draw collect, 09/05/18 4:00:00 EDT, 1-Time, Stop: 09/05/18 4:00:00 EDT, Lab Collect. documented in this encounter Plan of Treatment Not on file documented as of this encounter Visit Diagnoses Not on filedocumented in this encounter Care Teams Public Records Officer Relationship Specialty Start Date End Date Juan José Kendall MD [address] [place] [id number] PCP - General Family Medicine 12/25/22 Juan José Kendall MD [address] [place] [id number] Referring Physician Family Medicine 12/25/22 documented as of this encounter
--- OUTSIDE RECORDS SUMMARY | 2024-03-11 09:23 | XMS_ITS | Encounter Summary ---
Author Organization [employer] Address [address] [place] [address] Care Team Providers Care Table Worker Packager Name Role Phone Juan José Kendall MD Primary Care Provider + [phone] Juan José Kendall MD Unavailable [phone] Encounter Details Date Type Department Care Team (Late st Contact Info) Description 08/31/2018 Transcribed Document [facility] [place] [address] [place] [address] ProviderLaurie MD [address] [place] [address] Social History Tobacco Use Types Packs/Day Years Used Date Smoking Tobacco: Never Assessed Comments Unknown Sex and Gender Information Value Date Recorded Sex Assigned at Not on file Legal Sex Female 2:23 PM CDT Gender Identity Not on file Sexual Orientation Not on file documented as of this encounter Miscellaneous Notes * Cerner Conversion Note - Historical ProviderMD - 08/31/2018 5:00 AM CDT Chart Check - Review Order Profile Entered On: 08/31/2018 5:12 EDT Performed On: 08/31/2018 5:00 EDT by Steph Avendaño RN Chart Check Powerplans Initiated/Discontinued as Appropriate : Yes All Active Orders Reviewed : Yes Steph Avendaño RN - 08/31/2018 5:12 EDT documented in this encounter Plan of Treatment Not on file documented as of this encounter Visit Diagnoses Not on filedocumented in this encounter Care Teams Table Worker Packager Relationship Specialty Start Date End Date Juan José Kendall MD [address] [place] [id number] PCP - General Family Medicine 12/25/22 Juan José Kendall MD [address] [place] [phone] Referring Physician Family Medicine 12/25/22 documented as of this encounter
--- OUTSIDE RECORDS SUMMARY | 2024-03-11 09:23 | XMS_ITS | Encounter Summary ---
Author Organization [employer] Address [address] [place] [address] Care Team Providers Care Overcaster Name Role Phone Juan José Kendall MD Primary Care Provider [phone] Juan José Kendall MD Unavailable [phone] Encounter Details Date Type Department Care Team (Late st Contact Info) Description 08/31/2018 Transcribed Document [facility] [place] [facility] [place] [address] ProviderLaurie MD [address] [place] [address] Social History Tobacco Use Types Packs/Day Years Used Date Smoking Tobacco: Never Assessed Comments Unknown Sex and Gender Information Value Date Recorded Sex Assigned at Not on file Legal Sex Female 2:23 PM CDT Gender Identity Not on file Sexual Orientation Not on file documented as of this encounter Miscellaneous Notes * Cerner Conversion Note - Historical ProviderMD - 08/31/2018 6:28 PM CDT Evaluation, Physical Therapy Entered On: 09/01/2018 11:47 EDT Performed On: 09/01/2018 9:05 EDT by Wilfrido Hedrick Physical Therapist General Information, PT Visit Type, PT : Initial evaluation Patient Orders : Order Date Order Ordering 08/31/2018 18:29 PT Evaluation and Treatment Ordered By: JONG SANTACRUZ MD-ORT Active Diagnoses : 08/31/2018 00:00 Acute embolism and thrombosis of [...] Devices : Assistive Devices No Devices Recorded General Information Comment, PT : Hx of L knee prosthesis infection, 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 PMH: sepsis, UTI. Wilfrido Hedrick, Physical Therapist - 09/01/2018 11:30 EDT General Status Patient Received Status : Supine in bed, Other: IV, catheter Treatment Start Time : 09/01/2018 8:25 EDT Patient Left Status : Supine in bed, Family/Visitors at bedside, Communication board completed, All needs met and within reach RN/PCT Informed Comment : RN ok'd PT Treatment End Time : 09/01/2018 9:05 EDT Treatment Time : 40 Minute(s) Wilfrido Hedrick, Physical Therapist - 09/01/2018 11:30 EDT History and Environment Living Situation, Therapy : Home Patient Lives With : Spouse Persons Assisting Patient at Home : Spouse Persons Providing Information : Patient, Spouse Home Equipment Therapy, PT : Commode, Shower Equipment, Walker Commode : Commode, bedside Shower Equipment : Shower Chair, with back Walker : Walker, front wheel Home Setup : One story Stairs : No Wilfrido Hedrick Physical Therapist - 09/01/2018 11:30 EDT Prior Level of Function PT GRID Prior LOF Ambulation, Household : Assist needed Prior LOF Ambulation, Community : Assist needed Prior LOF Bed Mobility : Assist needed Prior LOF Toileting : Assist needed Prior LOF Transfer : Assist needed Stafford, Wilfrido J, Physical Therapist - 09/01/2018 11:30 EDT Prior LOF Assist with ADL Comment : was assisting pt to transfer to chair using sliding board at home most recently before being admitted to hospital. Wilfrido Hedrick, Physical Therapist - 09/01/2018 11:30 EDT Upper Extremity Right UE Active ROM : WFL Right UE Strength : Impaired Left UE Active ROM : WFL Left UE Strength : Impaired Right UE Strength : Impaired Left UE Strength : Impaired Wilfrido Hedrick, Physical Therapist - 09/01/2018 11:30 EDT Lower Extremity RLE Active ROM : Impaired Right LE Strength : Impaired LLE Active ROM : Impaired Left LE Strength : Impaired Lower Extremity Comment : RLE <25% AROM, 2-/5 strength; LLE ROM not tested (knee immobilizer), at least 1/5 strength ankle/foot Wilfrido Hedrick Physical Therapist - 09/01/2018 11:30 EDT Functional Mobility Mobility Grid Bed Scooting : Rehab Total assistance (Comment: x 2 [Wilfrido Hedrick Physical Therapist - 09/01/2018 11:30 EDT] ) Supine to Sit : Rehab Maximal assistance (Comment: x 2 [Wilfrido Hedrick Physical Therapist - 09/01/2018 11:30 EDT] ) Sit to Supine : Rehab Maximal assistance (Comment: x 2 [Wilfrido Hedrick Physical Therapist - 09/01/2018 11:30 EDT] ) Wilfrido Hedrick Physical Therapist - 09/01/2018 11:30 EDT Functional MobilityComment : Sat EOB about 10 mins, min-CGA to maintain static balance. Slow to perfor supine to sit and much assist required for scooting. Increase in dizziness while sitting. Not able to tolerate attempt to stand today. Wilfrido Hedrick Physical Therapist - 09/01/2018 11:30 EDT Gait Training/Assessment, PT Weight Bearing Status : Partial left lower extremity Weight Bearing Status Comment : TTWB LLE Wilfrido Hedrick Physical Therapist - 09/01/2018 11:30 EDT Neuromuscular Reeducation, PT Balance Comment : -Fair for static sitting, poor for dynamic sitting Wilfrido Hedrick Physical Therapist - 09/01/2018 11:30 EDT Neurological/Sensory Overall Sensory Response : Impaired Overall Sensory Response Comment : decreased LLE Response to Pain : Intact Wilfrido Hedrick Physical Therapist - 09/01/2018 11:30 EDT Cognition Assessment, PT Orientation : Oriented x 4 Attention Assessment : Present Wilfrido Hedrick Physical Therapist - 09/01/2018 11:30 EDT Edu Topics Physical Therapy Education Grid Positioning : Verbalizes understanding, Needs further teaching Role of Physical Therapy : Verbalizes understanding, Needs further teaching Transfer Training : Verbalizes understanding, Needs further teaching Wilfrido Hedrick Physical Therapist - 09/01/2018 11:30 EDT Indication Assesessment, PT Physical Therapy Indicated : Yes PT Problem List : Impaired, activities daily living, Impaired, bed mobility, Impaired, coordination/proprioception, Impaired, endurance tolerance, Impaired, sitting balance, Impaired, strength, Impaired, transfers Potential Barriers To Therapy : Acuity of Illness, Fatigue, Pain Rehabilitation Potential : Fair Wilfrido Hedrick Physical Therapist - 09/01/2018 11:30 EDT Plan of Care, PT PT Tx Plan/Goals Established w Patient : Yes PT Frequency Rehab : Daily PT Duration Rehab : Seven Days PT Treatments Planned : Balance training, Bed mobility training, Caregiver training, Neuromuscular reeducation, Safety education, Therapeutic exercises, Transfer training Wilfrido Hedrick Physical Therapist - 09/01/2018 11:30 EDT Meeting Specialist Goals Other PT LTG Grid Goal #1 Goal #2 Other : Pt will perform supine to sit with mod x 2 for progression in functional activity tolerance. Pt will perform RLE ther-ex 2 x 10 reps AAROM for improvement in strength/ROM. Date to Meet : 09/09/2018 EDT 09/09/2018 EDT Goal Status : Initial goal Initial goal Wilfrido Hedrick Physical Therapist - 09/01/2018 11:30 EDT Wilfrido Hedrick Physical Therapist - 09/01/2018 11:30 EDT Treatment Note Subjective Comment : Pt hesitant to participate but willing to try. Reports she hasnt sat EOB in a while. Patient's Response to Treatment : Wilfrido Roberts Physical Therapist - 09/01/2018 11:30 EDT Additional Objective Information : Precautions: TTWB LLE, no ROM LLE Wilfrido Hedrick Physical Therapist - 09/01/2018 11:49 EDT Assessment : Pt will require skilled PT to address function, strength, mobility while in the hospital and maximize functional potential. Recommend rehab at d/c. Plan for Treatment : see pt daily Wilfrido Hedrick Physical Therapist - 09/01/2018 11:30 EDT Pain Assessment Pain Scaled Used : 0-10 Pain scale Pain Score Pre-Intervention : 5 Pain Comment : AUBREY lawson, RN aware Wilfrido Hedrick Physical Therapist - 09/01/2018 11:30 EDT Image 1 - Images currently included in the form version of this document have not been included in the text rendition version of the form. Anticipated Discharge Needs, OT/PT Anticipated Discharge to : Unit, rehabilitation Recommend Continued Therapy at Discharge : Yes Wilrfido Hedrick Physical Therapist - 09/01/2018 11:30 EDT [place] PT Charges PT Ther Activities Ea 15 Min : 2 PT Eval Moderate Complexity : 1 Wilfrido Hedrick Physical Therapist - 09/01/2018 11:30 EDT Electronically signed by [facility] Conversion Senior Project Coordinator Cerner at 07/24/2022 3:36 PM CDT documented in this encounter Plan of Treatment Not on file documented as of this encounter Visit Diagnoses Not on filedocumented in this encounter Care Teams Overcaster Relationship Specialty Start Date End Date Juan José Kendall MD [address] [place] [address] [address] [place] [phone] PCP - General Family Medicine 12/25/22 Juan José Kendall MD [address] [place] [address] [address] [place] [phone] Referring Physician Family Medicine 12/25/22 documented as of this encounter
--- OUTSIDE RECORDS SUMMARY | 2024-03-11 09:23 | XMS_ITS | Encounter Summary ---
Author Organization [employer] Address [address] [place] [address] Care Team Providers Care Bracelet Former Name Role Phone Juan José Kendall MD Primary Care Provider +- [phone] Juan José Kendall MD Unavailable [phone] Encounter Details Date Type Department Care Team (Late st Contact Info) Description 08/31/2018 Transcribed Document [facility] [place] [address] [place] [address] ProviderLaurie MD [address] [place], [place] [id number] Social History Tobacco Use Types Packs/Day Years [...] ProviderMD - 08/31/2018 6:28 PM CDT Evaluation, Occupational Therapy Entered On: 09/01/2018 10:17 EDT Performed On: 09/01/2018 8:25 EDT by VALENTINA RETANA, OTR/L General Information, [...] tract infection, site not specified Therapy Diagnosis, OT : reduced mobility Admission Date : 08/30/2018 14:25 Assisted by, OT : Physical Therapist Personal Devices : Personal Devices No Devices Recorded Assistive Devices : Assistive Devices No Devices Recorded VALENTINA RETANA OTR/Ivan - 09/01/2018 10:12 EDT General Status Patient Received Status : Long sitting in bed, Bed alarm activated, HOB elevated Treatment Start Time : 09/01/2018 8:25 EDT Patient Left Status : Long sitting in bed, Bed alarm activated, RN/PCT informed, Family/Visitors at bedside, Communication board completed, All needs met and within reach RN/PCT Informed Comment : nursing ok'd tx. id and verified. Treatment End Time : 09/01/2018 9:04 EDT Treatment Time : 39 Minute(s) VALENTINA RETANA OTR/Ivan - 09/01/2018 10:12 EDT History and Environment, OT Living Situation, Therapy : Home Patient Lives With : Spouse Persons Assisting Patient at Home : Spouse Persons Providing Information : Patient, Spouse Home Equipment, Therapy : Commode, Shower Equipment, Walker Commode : Commode, bedside Shower Equipment : Shower Chair, with back Walker : Walker, front wheel Home Setup : One story Stairs : VALENTINA Castellanos OTR/vIan - 09/01/2018 10:12 EDT Prior LOF Bathing, OT : Assist needed Prior LOF Bed Mobility : Assist needed Prior LOF Upper Body Dressing, OT : Independent Prior LOF Lower Body Dressing, OT : Assist needed Prior LOF Toileting : Assist needed Prior LOF Transfer : Assist needed Prior LOF Grooming, OT : Independent Prior LOF Wheel Chair Mobility : Assist needed Prior LOF for IADLs, OT : Assist needed VALENTINA RETANA OTR/Ivan - 09/01/2018 10:12 EDT Prior LOF Assist with ADL Comment : Pt reports she was independent with ADL's prior to June 27, 2018. VALENTINA RETANA OTR/Ivan - 09/01/2018 10:12 EDT Upper Extremity Upper Extremity Dominance : Right Right UE Active ROM : WFL Right UE Strength : Impaired Left UE Active ROM : WFL Left UE Strength : Impaired Upper Extremity Strength Impaired : Yes Right UE Strength : Impaired Left UE Strength : Impaired Right UE Strength Comment : 4-/5 grossly Left UE Strength Comment : 4-/5 grossly VALENTINA RETANA OTR/Ivan - 09/01/2018 10:12 EDT Self Care/Home Management, OT Self Feeding Assist Level, OT : Independent, complete Grooming Assist Level, OT : Independent, complete Bathing Assist Level, OT : Assist, maximal Bathing Comment, OT : with LB Upper Body Dressing Assist Level, OT : Independent, complete Lower Body Dressing Assist Level, OT : Assist, maximal Lower Body Dressing Comment, OT : x 2-3 Toileting Assist Level : Assist, maximal Toileting Assist Device Comment : parekh catheter in place. VALENTINA RETANA OTR/Ivan - 09/01/2018 10:12 EDT Mobility Device/Prosthesis/Wt Bearing Weight Bearing Status Maintained : Yes Weight Bearing Status : Toe touch left Functional Mobility Device : Gait belt Functional Mobility with Brace/Splint : Yes VALENTINA RETANA OTR/Ivan - 09/01/2018 10:12 EDT Functional Mobility Mobility Grid Bed Roll Left : Rehab Maximal assistance (Comment: x 2 [VALENTINA RETANA OTR/Ivan - 09/01/2018 11:01 EDT] ) Bed Scooting : Rehab Total assistance (Comment: x 2-3 [VALENTINA RETANA OTR/Ivan - 09/01/2018 11:01 EDT] ) Sit to Supine : Rehab Maximal assistance (Comment: x 2 [VALENTINA RETANA OTR/Ivan 09/01/2018 11:01 EDT] ) VALENTINA RETANA OTR/Ivan 09/01/2018 11:01 EDT Supine to Sit : Rehab Moderate assistance (Comment: mod x 2. [VALENTINA RETANA OTR/Ivan - 09/01/2018 11:01 EDT] ) VALENTINA RETANA OTR/Ivan Orozco 09/01/2018 10:12 EDT AM PAC Daily Activity Putting On/Taking Off Lower Body Clothes : A lot Bathing (Washing, Rinsing, Drying) : A lot Toileting Includes Toilet, Bedpan, Urinal : A lot Putting On/Taking Off Upper Clothing : None Taking Care of Grooming : None Eating Meals : None AM-PAC Daily Activity Raw Score : 18 AM-PAC Daily Activity Standardized Score : 38.66 AM-PAC Daily Activity CMS 0-100% Score : 46.65 % VALENTINA RETANA OTRIvan 09/01/2018 11:01 EDT Image 3 - Images currently included in the form version of this document have not been included in the text rendition version of the form. Activity Tolerance, OT Activity Comment : VALENTINA HULL OTRIvan 09/01/2018 11:01 EDT Cognition Assessment, OT Orientation : Oriented x 4 VALENTINA RETANA OTRIvan 09/01/2018 11:01 EDT Education OT Occupational Therapy Education Grid Activity of Daily Living Training : Verbalizes understanding, Returns demonstration, Needs further teaching Functional Mobility Training : Verbalizes understanding, Returns demonstration, Needs further teaching Role of Occupational Therapy : Verbalizes understanding VALENTINA RETANA OTR/Ivan 09/01/2018 11:01 EDT Indication Assessment, OT Occupational Therapy Indicated : Yes Problem List, OT : Impaired, bed mobility, Impaired, activities daily living, Impaired functional mobility, Impaired, standing balance, Impaired, strength, Impaired, transfers Potential Barriers, OT : None evident Rehabilitation Potential, OT : VALENTINA Mcgregor OTR/Ivan 09/01/2018 11:01 EDT Plan of Care, OT OT Tx Plan/Goals Established w Patient : Yes OT Frequency Rehab : Other: 3-5 x week OT Duration Rehab : Seven Days OT Treatments Planned : Activities of daily living, Functional mobility training, Safety education, Therapeutic activities, Therapeutic exercises Plan of Care Comment, OT : see OT POC. VALENTINA RETANA OTR/Ivan - 09/01/2018 11:01 EDT Refractory Furnace Designer Goals, OT Other LTG Grid Goal #1 Goal #2 Goal : Pt will return demo of bilateral UE theraband exercises. Pt will complete OOB ADL transfer assessment assistance prn. Date to Meet : 09/07/2018 EDT 09/07/2018 EDT Goal Status : Initial goal Initial goal VALENTINA RETANA OTR/L - 09/01/2018 11:01 EDT VALENTINA RETANA OTR/L - 09/01/2018 11:01 EDT Treatment Note Subjective Comment : pt ok'd tx. Additional Objective Information : EVAL = 8 min ADL = 31 min Pt required increased time and asstance to complete bed level mobility. Pt able to sit EOB with CGA x 5-7 minutes. Assessment : Pt is mod/max assist x 2 with bed level mobility and LB self care tasks at bed level. Pt to benefit from skilled OT services during in-patient stay. Plan for Treatment : Pt to be seen by skilled OT 3-5 x week. VALENTINA RETANA OTR/Ivan - 09/01/2018 11:01 EDT Pain Assessment Pain Scaled Used : 0-10 Pain scale Pain Score Pre-Intervention : 5 Pain Score During-Intervention : 5 Pain Score Post-Intervention. : 5 Location : Knee, left Pain Comment : nurse aware VALENTINA RETANA OTR/L - 09/01/2018 11:01 EDT Image 1 - Images currently included in the form version of this document have not been included in the text rendition version of the form. Anticipated Discharge Needs, OT/PT Anticipated Discharge to : Other: to be determined. Recommend Continued Therapy at Discharge : Yes VALENTINA RETANA OTR/Ivan - 09/01/2018 11:[address] [facility] OT Charges OT Selfcare/Hm Mgmt Ea 15 Min : 2 OT Eval Low Complexity : 1 VALENTINA RETANA OTR/L - 09/01/2018 11:01 EDT Electronically signed by [facility] Conversion Imaging Account Manager Cerner at 07/24/2022 3:42 PM CDT documented in this encounter Plan of Treatment Not on file documented as of this encounter Visit Diagnoses Not on filedocumented in this encounter Care Teams Bracelet Former Relationship Specialty Start Date End Date Juan José Kendall MD [address] [facility] [address] [place] [address] PCP - General Family Medicine 12/25/22 Juan José Kendall MD [facility] [address] [place] [address] Referring Physician Family Medicine 12/25/22 documented as of this encounter
--- OUTSIDE RECORDS SUMMARY | 2024-03-11 09:23 | XMS_ITS | Encounter Summary ---
Author Organization [employer] Address [address] [place] [address] Care Team Providers Care Apprentice Pattern Maker Name Role Phone Juan José Kendall MD Primary Care Provider +- [phone] Juan José Kendall MD Unavailable [phone] Encounter Details Date Type Department Care Team (Late st Contact Info) Description 08/31/2018 Transcribed Document [facility] [place] [address] [place] [address] ProviderLaurie MD [address] [place] [address] Social History Tobacco Use Types Packs/Day Years Used Date Smoking Tobacco: Never Assessed Comments Unknown Sex and Gender Information Value Date Recorded Sex Assigned at Not on file Legal Sex Female 2:23 PM CDT Gender Identity Not on file Sexual Orientation Not on file documented as of this encounter Miscellaneous Notes * [employer]ner Conversion Note - Laurie ProviderMD - 08/31/2018 2:47 PM CDT [facility] PreOp Summary Primary Physician: JONG SANTACRUZ MD-ORT Finalized Date/Time: 08/31/18 16:02:21 Pt. Name: ROSSYTRUDI D.O.B./Sex: 1955 Female Med Rec #: [id number] Physician: JONES HIDALGO MD-INT Financial #: [id number] Pt. Type: I Room/Bed: [facility]/ Admit/Disch: 08/30/18 14:25:00 - Institution: [facility] PreOp Case Times Entry 1 In Preop 08/31/18 11:30:00 Ready for Holding n/a Room Patient Ready for 08/31/18 13:05:00 Surgery Patient Out of Preop 08/31/18 14:00:00 Patient Out of n/a Holding Room Last Modified By: TANMAY BEY RN 08/31/18 16:02:04 [facility] PreOp Case Times Audit 08/31/18 16:02:04 Ortho Nurse: FLOYDSF Modifier: [email or web address] <+> 1 Patient Out of Preop <+> 1 Patient Ready for Surgery Finalized By: TANMAY BEY, RN Document Signatures Signed By: TANMAY BEY RN 08/31/18 16:02 documented in this encounter Plan of Treatment Not on file documented as of this encounter Visit Diagnoses Not on filedocumented in this encounter Care Teams Apprentice Pattern Maker Relationship Specialty Start Date End Date Juan José Kendall MD [address] [facility] [address] [place] [address] PCP - General Family Medicine 12/25/22 Juan José Kendall MD [address] [facility] [address] [place] [address] Referring Physician Family Medicine 12/25/22 documented as of this encounter
--- OUTSIDE RECORDS SUMMARY | 2024-03-11 09:23 | XMS_ITS | Encounter Summary ---
Author Organization [employer] Address [address] [address] [place] [address] Care Team Providers Care Service Consultant Name Role Phone Juan José Kendall MD Primary Care Provider + [phone] Juan José Kendall MD Unavailable [phone] Encounter Details Date Type Department Care Team (Late st Contact Info) Description 08/31/2018 Transcribed Document [facility] [place] [address] ProviderLaurie MD [address] [place] [address] Social History Tobacco Use Types Packs/Day Years Used Date Smoking Tobacco: Never Assessed Comments Unknown Sex and Gender Information Value Date Recorded Sex Assigned at Not on file Legal Sex Female 2:23 PM CDT Gender Identity Not on file Sexual Orientation Not on file documented as of this encounter Miscellaneous Notes * [employer]ner Conversion Note - Laurie ProviderMD - 08/31/2018 6:28 PM CDT Consult Phone Call Documentation Entered On: 08/31/2018 18:43 EDT Performed On: 08/31/2018 18:28 EDT by SHEN WOODS Phone Call for Consults Consult Phone Call/Page Attempt : First call Physician Requesting Consult : JONES HIDALGO MD-INT Physician Requested for Consult : JONG SANTACRUZ MD-ORT Physician Covering for Consult : JONG SANTACRUZ MD-AZIZAT Date and Time Call Returned : 08/31/2018 18:43 EDT SHEN WOODS - 08/31/2018 18:43 EDT documented in this encounter Plan of Treatment Not on file documented as of this encounter Visit Diagnoses Not on filedocumented in this encounter Care Teams Service Consultant Relationship Specialty Start Date End Date Juan José Kendall MD [address] [facility] [address] [place] [id number] PCP - General Family Medicine 12/25/22 Juan José Kendall MD [address] [facility] [address] [place] [address] Referring Physician Family Medicine 12/25/22 documented as of this encounter
--- OUTSIDE RECORDS SUMMARY | 2024-03-11 09:23 | XMS_ITS | Encounter Summary ---
Author Organization [employer] Address [address] [place] [address] Care Team Providers Care Coal Pulverizing Operator Name Role Phone Juan José Kendall MD Primary Care Provider +- [phone] Juan José Kendall MD Unavailable [phone] Encounter Details Date Type Department Care Team (Late st Contact Info) Description 08/31/2018 Transcribed Document [facility] [place] [facility] [place] [address] Laurie Garcia MD [address] [place] [id number] Social History Tobacco Use Types Packs/Day Years Used Date Smoking Tobacco: Never Assessed Comments Unknown Sex and Gender Information Value Date Recorded Sex Assigned at Not on file Legal Sex Female 2:23 PM CDT Gender Identity Not on file Sexual Orientation Not on file documented as of this encounter Miscellaneous Notes * [employer] Conversion Note - Laurie Garcia MD - 08/31/2018 5:09 PM CDT Patient: TRUDI BLAIR Age: 63 years Sex: Female : 1955 Associated Diagnoses: Sepsis; Left prosthetic knee infection; Enterococcus UTI (urinary tract infection); HTN (hypertension); Hypercholesterolemia; GERD (gastroesophageal reflux disease); History of obstructive sleep apnea; At risk for sleep apnea; Stress incontinence; MRSA and Enterobacter bacteremia; Wound infection after surgery ,Left Knee; PILY (acute kidney injury); Anemia; Left posterior tibial vein thrombosis Author: JONES HIDALGO MD-INT Basic Information awake alert comfortable, ???Hemoglobin 7.8 ???Transfusion of 2 units packed RBCs was ordered ???Scheduled for a prosthesis explantation and spacer was on antibiotic placement today ???Has a normal renal ultrasound ???Echo was ordered to rule out endocarditis Review of Systems Constitutional: No fever, No [...] reflux Current medications: Medications (43) Active Scheduled: (9) cefTRIAXone + NaCl 0.9% 50 mL 2 Gram, IV Piggyback, [id number] cloNIDine 80 mcg + ketorolac 30 mg + ropivacaine 0.5% 30 mL + lidocaine 1% w/epi 1:100,000 28.2 mL 80 mcg 0.8 mL, IntraLesional, 1-Time DAPTOmycin + NaCl 0.9% 50 mL 700 mg 14 mL, IV Piggyback, [id number] docusate sodium 100 mg cap 100 mg 1 Cap, Oral, BID metoclopramide 10 mg tab 10 mg 1 Tab, Oral, BID metoprolol tartrate 25 mg tab 25 mg 1 Tab, Oral, Daily pantoprazole EC 40 mg tab 40 mg 1 Tab, Oral, Daily simvaSTATin 20 mg tab 40 mg 2 Tab, Oral, At Bedtime topiramate 25 mg sprinkle cap 25 mg 1 Cap, Oral, BID Continuous: (3) lactated ringers 1,000 mL 1,000 mL, IntraVENous, 20 mL/Hr NaCl 0.45% 1,000 mL 1,000 mL, IntraVENous, 100 mL/Hr Normosol-R 1,000 mL 1,000 mL, IntraVENous, 100 mL/Hr PRN: (31) acetaminophen 325 mg tab 650 mg 2 [...] tab 0.1 mg 1 Tab, Oral, Q4H famotidine 20 mg tab 20 mg 1 Tab, Oral, PREOP fentaNYL 100 mcg/2 mL inj 50 mcg 1 mL, IV Push, Q5Min haloperidol 5 mg/1 mL inj 1 mg 0.2 mL, IV Push, 1-Time HYDROmorphone 1 mg/1 mL inj 0.5 mg 0.5 mL, IV Push, Q2H HYDROmorphone 1 mg/1 mL inj 0.5 mg 0.5 mL, IV Push, Q10Min lidocaine 1% *PF* inj 2 mL 0.5 mL, IntraDermal, 1-Time magnesium hydroxide 8% liq 30 mL 30 mL, Oral, Daily magnesium sulfate 2 Gram 50 mL, IV Piggyback, Daily magnesium sulfate 2 Gram 50 mL, IV Piggyback, Q2H metoclopramide 10 mg/2 mL inj 5 mg 1 mL, IV Push, Q6H ondansetron 4 mg/2 mL inj 4 mg 2 mL, IV Push, Q4H ondansetron 4 mg/2 mL inj 4 mg 2 mL, IV Push, 1-Time potassium chloride 10 mEq 100 mL, IV [...] Stress incontinence Physical Examination VS/Measurements Vital Measurements 08/31/2018 13:50 EDT Temperature Source Oral Temperature Mode Fahrenheit Temperature, Fahrenheit 98.4 Deg F Clinical Temperature, C 36.9 Deg C Heart Rate, Apical 51 bpm LOW Respiratory Rate 18 Breaths/Min Systolic Blood Pressure 138 mmHg Diastolic Blood Pressure 62 mmHg Oxygen Saturation 97 % General: Alert and [...] Review / Management Results review: All Results 08/31/2018 7:16 EDT Magnesium Level 1.8 mg/dL Phosphorus 4.6 mg/dL Vitamin D 25 Hydroxy 13.9 ng/mL LOW 08/31/2018 7:02 EDT Creatinine Urine Random 60 mg/dL NA Protein Ur [place] 209 mg/dL NA Sodium Ur [place] 48 mMole/Liter NA Urea Nitrogen Urine Random [...] 19.8 % Lymph # 1.05 K/uL LOW Armstrong % 7.8 % Armstrong # 0.41 K/uL Eos % 10.4 % HI Eos # 0.55 K/uL HI Baso % 0.4 % Baso # 0.02 K/uL Slide Review No IG# 0 x10(3)/uL IG% 0 % ABO/Rh Repeat O POS 08/30/2018 15:54 EDT Sodium Level 145 mmol/L Potassium Level 3.8 mmol/L Chloride Level 113 mmol/L HI Carbon Dioxide Level 24 mmol/L Anion Gap 12 Glucose Level 100 mg/dL Blood Urea Nitrogen 36 mg/dL HI Creatinine Level 2.43 mg/dL HI eGFR 24 mL/min/1.73m2 LOW eGFR NonAfrican 20 mL/min/1.73m2 LOW Bun/Creatinine 14.8 Calcium Level 7.6 mg/dL LOW Protein Total 4.4 Gram/dL LOW Albumin Level 1.5 Gram/dL LOW Globulin 2.9 Gram/dL A/G Ratio 0.5 LOW Bilirubin Total 0.2 mg/dL Alk Phos 69 Units/Liter AST 39 Units/Liter HI ALT 16 Units/Liter CRP 2.3 mg/dL HI Lactic Acid Level 1.5 mmol/L Uric Acid 7.1 mg/dL HI CK 22 Units/Liter LOW . Impression and Plan Diagnosis Sepsis [...] posterior tibial vein thrombosis - Admitting, Medical. Course: Plan/ cont. current care, pt/ot, encourage oral fluid intake, nutritional support, encourage use of respirometer, motoring blood pressure, renal function, blood glucose, and urine output. -Continue on IV antibiotics as recommended by infectious disease -Continue wound care -Pain control -DVT prophylaxis -Close monitoring fluid and electrolytes -When necessary nebs -For risk precautions -Sleep apnea precautions -Type and cross then transfuse 2 units of packed RBCs -For prosthesis explantation and spacer was on antibiotic placement today -Vitamin D and calcium replacement. documented in this encounter Plan of Treatment Not on file documented as of this encounter Visit Diagnoses Not on filedocumented in this encounter Care Teams Coal Pulverizing Operator Relationship Specialty Start Date End Date Juan José Kendall MD [address] [facility] [address] [place] [address] PCP - General Family Medicine 12/25/22 Juan José Kendall MD [address] [place] [facility] [address] [place] [address] Referring Physician Family Medicine 12/25/22 documented as of this encounter
--- OUTSIDE RECORDS SUMMARY | 2024-03-11 09:23 | XMS_ITS | Encounter Summary ---
Author Organization [employer] Address [address] [place] [address] Care Team Providers Care Java Engineer Name Role Phone Juan José Kendall MD Primary Care Provider +- [phone] Juan José Kendall MD Unavailable [phone] Encounter Details Date Type Department Care Team (Late st Contact Info) Description 08/31/2018 Transcribed Document [facility] Family Medicine [address] [place] [address] ProviderLaurie MD [address] [place] [address] Social History Tobacco Use Types [...] 08/31/2018 2:47 PM CDT [place] Main OR IntraOp Summary Primary Physician: JONG SANTACURZ MD-ORT Finalized Date/Time: 09/02/18 11:30:11 Pt. Name: ROSSYTRUDI D.O.B./Sex: 1955 Female Med Rec #: [id number] Physician: JONES HIDALGO MD-INT Financial #: [id number] Pt. Type: I Room/Bed: [facility]/ Admit/Disch: 08/30/18 14:25:00 - Institution: [facility] Case Attendance Entry 1 Entry 2 Entry 3 Case Attendee JONG SANTACRUZ MD-Jong Lo MD MOSS, CHRISTY, RN Role Performed Surgeon/Proceduralist, Anesthesiologist Store Warehouse Associate, First First Time In 08/31/18 14:03:00 08/31/18 14:03:00 08/31/18 14:03:00 Time Out 08/31/18 17:14:00 08/31/18 15:41:00 08/31/18 15:03:00 Procedure Knee Total Joint Knee Total Joint Knee Total Joint Revision Revision Revision Other Attendee Superficial Wound Closed By: Last Modified By: Adrián Stone, Adrián Cali, TIMBO JOEL RN 08/31/18 17:14:37 08/31/18 15:41:23 08/31/18 15:03:11 Entry 4 Entry 5 Entry 6 Case Attendee ATIYA ROCA ST ARVIN, CHRIS L, PA-C OTHER, ATTENDEE #1 Role Performed Scrub, First Physician assistant technician Vendor Time In 08/31/18 14:03:00 08/31/18 14:03:00 08/31/18 14:03:00 Time Out 08/31/18 17:14:00 08/31/18 17:14:00 08/31/18 16:43:00 Procedure Knee Total Joint Knee Total Joint Knee Total Joint Revision Revision Revision Other Attendee Superficial Wound Closed By: Last Modified By: Adrián Stone RN Holliday, Stewart R, RN Adrián Stone, LISBETH 08/31/18 17:14:37 08/31/18 17:14:37 08/31/18 16:43:14 Entry 7 Entry 8 Case Attendee Adrián Stone, MADISON MAYER, FINANCIAL REPRESENTATIVE Role Performed Store Warehouse Associate, First FINANCIAL REPRESENTATIVE/Nurse Home Care Associate Time In 08/31/18 15:02:00 08/31/18 15:37:00 Time Out 08/31/18 17:14:00 08/31/18 17:14:00 Procedure Knee Total Joint Knee Total Joint Revision Revision Other Attendee Superficial Wound Closed By: Last Modified By: Adrián Stone RN Holliday, Stewart R RN 08/31/18 17:14:37 08/31/18 17:14:37 [facility] Case Attendance Audit 08/31/18 17:14:37 Pot Annealer: HUIDSR Modifier: [email or web address] 1 <+> Time Out 1 <*> Procedure Knee Total Joint Revision 2 <*> Procedure Knee Total Joint Revision 3 <*> Procedure Knee Total Joint Revision 4 <+> Time Out 4 <*> Procedure Knee Total Joint Revision 5 <+> Time Out 5 <*> Procedure Knee Total Joint Revision 6 <*> Procedure Knee Total Joint Revision 7 <+> Time Out 7 <*> Procedure Knee Total Joint Revision 8 <+> Time Out 8 <*> Procedure Knee Total Joint Revision 08/31/18 16:43:14 Pot Annealer: HOLLIDSR Modifier: HOLLIDSR 6 <+> Time Out 6 <*> Procedure Knee Total Joint Revision 08/31/18 15:41:23 Pot Annealer: HOLLIDSR Modifier: HOLLIDSR 2 <+> Time Out 2 <*> Procedure Knee Total Joint Revision 08/31/18 15:37:42 Pot Annealer: CRMOSS Modifier: HOLLIDSR <+> 8 Case Attendee <+> 8 Role Performed <+> 8 Time In <+> 8 Procedure 08/31/18 15:03:11 Pot Annealer: CRMOSS Modifier: CRMOSS 1 <*> Procedure Knee Total Joint Revision 2 <*> Procedure Knee Total Joint Revision 3 <+> Time Out 3 <*> Procedure Knee Total Joint Revision 4 <*> Procedure Knee Total Joint Revision 5 <+> Time In 5 <*> Procedure Knee Total Joint Revision 6 <+> Time In 6 <*> Procedure Knee Total Joint Revision <+> 7 Case Attendee <+> 7 Role Performed <+> 7 Time In <+> 7 Procedure 08/31/18 14:52:53 Pot Annealer: CRMOSS Modifier: CRMOSS 1 <*> Procedure Knee Total Joint Revision 2 <+> Time In 2 <*> Procedure Knee Total Joint Revision 3 <+> Time In 3 <*> Procedure Knee Total Joint Revision 4 <+> Time In 4 <*> Procedure Knee Total Joint Revision <+> 5 Case Attendee <+> 5 Role Performed <+> 5 Procedure <+> 6 Case Attendee <+> 6 Role Performed <+> 6 Procedure 08/31/18 14:52:04 Pot Annealer: CRMOSS Modifier: CRMOSS <+> 1 Procedure <+> 2 Case Attendee <+> 2 Role Performed <+> 2 Procedure <+> 3 Case Attendee <+> 3 Role Performed <+> 3 Procedure <+> 4 Case Attendee <+> 4 Role Performed <+> 4 Procedure [facility] Case Times Entry 1 Patient In Room Time 08/31/18 14:03:00 Out Room Time 08/31/18 17:14:00 Anesthesia Start Time 08/31/18 14:03:00 Stop Time 08/31/18 17:14:00 Anesthesia Ready 08/31/18 14:04:00 Surgery / Procedure Times Start Time 08/31/18 14:47:00 Stop Time 08/31/18 17:07:00 Last Modified By: TIMBO BURGESS RN 08/31/18 14:04:06 [facility] Case Times Audit 08/31/18 17:14:36 Pot Annealer: CRMOSS Modifier: [email or web address] <+> 1 Out Room Time <+> 1 Stop Time <+> 1 Stop Time 08/31/18 14:49:27 Pot Annealer: CRMOSS Modifier: CRMOSS <+> 1 Start Time [facility] Cautery Entry 1 ESU Identification Cautery Type Monopolar ESU ID Number [id number] ID Type Hospital Number Cautery Settings Cut Setting 50 Coag Setting 50 ESU Grounding Pad Ground Pad Type Adult Grounding Pad Site Right Lower Abdomen Grounding Pad TIMBO BURGESS RN Applied By Grounding Pad Site Warm, dry and intact Skin Condition Before Cautery Grounding Pad Site Unchanged, Warm, dry Skin Condition and intact After Cautery Last Modified By: TIMBO BURGESS RN 08/31/18 14:53:31 [facility] Communication Entry 1 Communication To Family/Significant other Comment START OF PROCEDURE Communication By TIMBO BURGESS RN Date and Time 08/31/18 14:53:00 Last Modified By: TIMBO BURGESS RN 08/31/18 14:55:22 [facility] Counts Verification Entry 1 Procedure Knee Total Joint Revision Count Info Count Type Sponge, Sharps Counts Verification Baseline/pre-procedure Sequence Count Results Correct, surgeon notified Counts Performed By Count Performed By ATIYA ROCA ST (Scrub) Count Performed By TIMBO BURGESS RN (RN) Last Modified By: TIMBO BURGESS RN 08/31/18 14:55:40 [facility] Counts Final Entry 1 Procedure Knee Total Joint Revision Final Count Info Count Type Sponge, Sharps, Miscellaneous Counts Verification Skin Closure/end of Sequence procedure Count Results Correct, surgeon notified Counts Performed By Count Performed By TIMOTEO ECHEVARRIA PA-C (Scrub) Count Performed By Adrián Stone RN (RN) Last Modified By: Adrián Stone RN 08/31/18 16:33:56 [facility] Cultures and Spec Summary Entry 1 Cultrures and Specimens Specimen Ordered: Yes Specimens Types Pathology Specimen(s) Labeled Pathology and Sent to Last Modified By: TIMBO BURGESS RN 08/31/18 15:08:07 [facility] Departure from OR Entry 1 Integumentary Assessment Integumentary WDL Assessment WDL Transfer/Handoff Transfer to PACU Phase I Handoff Method Bedside/Face to face Post-op Transport Bed (including Via specialty) Patient Transport TIMBO BURGESS RN, Accompanied by Jong Macedo MD Last Modified By: TIMBO BURGESS RN 08/31/18 14:58:16 [facility] Dressing and Packing Entry 1 Type Dressing Location OPERATIVE SITE Wound Dressing Item Jay, Skin Closure Glue Supplemental Cold pack, Limb Applications immobilizer Applied By TIMOTEO ECHEVARRIA PA-C Other Comments PRINEO APPLIED Last Modified By: TIMBO BURGESS RN 08/31/18 14:59:32 [facility] Explant Log Entry 1 Explant Log Description left knee hardware Explant Site left knee Removal Reason Infection Disposition Sent to pathology Last Modified By: Adrián Stone RN 08/31/18 16:29:02 [facility] Fire Risk Assessment Entry 1 Fire Info Surgical Site or 0- No Incision Above the Xyphoid Open O2 Source 0- No (Mask or Cannula) Available Ignition 1- Yes (ESU, Laser, Light Source) Fire Risk 1 Assessment Score Fire Score Fire Risk Yes Assessment Complete Fire Risk TIMBO BURGESS RN Assessment Verified By Fire Risk 08/31/18 15:03:00 Assessment Verified Date/Time Fire Risk Standard Fire Yes Safety Precautions Followed Last Modified By: TIMBO BURGESS RN 08/31/18 15:03:15 [facility] General Case Trimmer Operator Three Knife 1 Case Information OR OR 02 [facility] Case Level 1 Room Verified Yes Wound Class I - Clean Specialty SN Orthopedic ASA Class 4 Diagnosis Preop Diagnosis LEFT PROSTHETIC KNEE INFECTION Postop Same As Preop No Postop Diagnosis REFER TO MD NOTES Last Modified By: TIMBO BURGESS RN 08/31/18 15:08:04 [facility] General Case Data Audit 08/31/18 15:08:57 Pot Annealer: CRMOSS Modifier: CRMOSS <+> 1 Postop Same As Preop <+> 1 Preop Diagnosis 08/31/18 15:08:04 Pot Annealer: CRMOSS Modifier: CRMOSS <+> 1 ASA Class <+> 1 Postop Diagnosis <+> 1 Room Verified [facility] Implant Log Entry 1 Entry 2 Type Implant (Synthetic) Implant (Synthetic) Implant Log Implant Type Bone Cement Bone Cement Tissue Implant Type Implant CEMENT BONE COBALT G-HV CEMENT BONE [place] G-HV Identification [id number] Description Implant Quantity 2 1 Implant Site left knee left knee Implant Identification Model Number Implant Identification Serial Number Implant [id number] Identification Lot Number Implant Dj Surg:Encore Dj Surg:Encore Identification Med:Encore Orth Med:Encore Orth Felt Hat Pouncing Operator Hand Name: Implant [id number] 600-15-100 Identification Catalog Number Implant Size Implant Has an Yes Yes Expiration Date Implant Expiration 08/19/19 08/19/19 Date Wasted Radioactive Material Time Implanted Tissue Implant Continue for Tissue Implant Documentation Tissue Identification Number Graft Prep Per Felt Hat Pouncing Operator Hand Instructions: Tissue Preparation Method: Reconstitution Solution: Reconstitution Solution Lot Number Reconstitution Solution Expiration Date: Thawing Solution Thawing Solution Lot Number Thawing Solution Expiration Date Preparation Materials, Other Preparation Materials, Other Lot Number Preparation Materials, Other Expiration Date Tissue Prepared/Processed By Felt Hat Pouncing Operator Hand Paperwork Completed Implant Type Comment Last Modified By: Adrián Stone RN Holliday, Stewart R, RN 08/31/18 16:13:18 08/31/18 16:13:19 [facility] Implant Log Audit 08/31/18 16:13:19 Pot Annealer: ARTEMIO Modifier: ARTEMIO <+> 1 Implant Identification Lot Number <+> 1 Implant Identification Felt Hat Pouncing Operator Hand Name: <+> 1 Implant Expiration Date <+> 1 Implant Site <+> 1 Implant Identification Catalog Number <+> 1 Implant Has an Expiration Date <+> 2 Implant Identification Description <+> 2 Implant Identification Lot Number <+> 2 Implant Identification Felt Hat Pouncing Operator Hand Name: <+> 2 Implant Expiration Date <+> 2 Implant Site <+> 2 Implant Quantity <+> 2 Implant Identification Catalog Number <+> 2 Implant Type <+> 2 Implant Has an Expiration Date <+> 2 Type [facility] Intraoperative Assessment Entry 1 Handoff Method Bedside/Face to face Valid History / Yes Physical in Chart Preoperative Yes Checklist Reviewed/Evaluated Allergies Reviewed Yes Patient is Latex No Sensitive Isolation Not applicable Precautions Noted Level of WDL Consciousness (WDL = Alert, Oriented to Person, Place, and Time) Skin Assessment Yes Verified Present Upon IVs Arrival to OR Last Modified By: TIMBO BURGESS RN 08/31/18 15:03:17 [facility] Intraoperative Equipment Entry 1 Equipment Intraop Monitoring Electrocardiogram Three lead placement (ECG) Electrode Placement Blood Pressure Non-Invasive BP Device Source Blood Pressure Arm, left upper Location Pulse Oximeter Hand, right Probe Site Antiembolic Devices Antiembolic Devices Sequential compression device, knee high Antiembolic Device Bilateral Location Scopes Photo/Video Documentation Last Modified By: TIMBO BURGESS RN 08/31/18 15:03:32 [facility] Medication Admin Entry 1 Entry 2 Medication/Irrigant Bacitracin 50,000units vancomycin 1Gm vial - powder vial - [id number] Combo Med List Time Administered Route of IRRIGATION Administration Dose Dose 1000 1 Unit of Measure ml gram Volume 1000ML Administered By JONG SANTACRUZ MD-ORT JONG SANTACRUZ MD-ORT Procedure Irrigation Irrigant Volume In Irrigant Volume Out Last Modified By: TIMBO BURGESS RN Holliday, Stewart R, RN 08/31/18 15:08:19 08/31/18 16:33:41 [facility] Medication Admin Audit 08/31/18 16:33:41 Pot Annealer: MARLO Modifier: ARTEMIO <+> 2 Medication/Irrigant <+> 2 Administered By <+> 2 Dose <+> 2 Unit of Measure [facility] Patient Positioning Entry 1 Procedure Knee Total Joint Revision Body Position Supine Left Arm Position Secured on padded arm board Right Arm Position Secured on padded arm board Left Leg Position Uncrossed, parallel Right Leg Position Uncrossed, parallel Feet Uncrossed Yes Pressure Points Yes Checked Positioning Devices Arm Board, Foot Rest, Pillows, Safety Strap, Chest Device Position LATERAL POST TO OPERATIVE THIGH Positioned By JONG SANTACRUZ MD-ORTWALE CHRIS L, PA-C, TIMBO BURGESS RN Position Verified Positioning Yes Verified by Anesthesia Positioning Yes Verified by Surgeon Last Modified By: TIMBO BURGESS RN 08/31/18 15:01:37 [facility] Sign In Entry 1 Patient, Site, Yes Procedure Identified Surgical Consent Yes Confirmed Relevant Surgical Yes Documents Available Surgical Site Yes Marked by person performing procedure Anesthesia Machine Yes Check Completed Medication Checks Yes Completed Airway Blood Loss Risk Yes Blood Loss Yes Intervention Equipment Prepared and Ready Hypothermia Risk Yes Warming Measures Yes Taken Last Modified By: TIMBO BURGESS RN 08/31/18 15:03:43 [facility] Op Sign Out Entry 1 [...] Checklist Yes Elements Complete? RN Sign Out Adrián Stone RN Signature RN Sign Out 08/31/18 17:14:00 Signature Date/Time Plan of Care Outcome - [...] related to extraneous objects Last Modified By: Adrián Stone RN 08/31/18 17:14:46 [facility] Sign Out Audit 08/31/18 17:14:46 Pot Annealer: ARTEMIO Modifier: ARTEMIO 1 <*> RN Sign Out Signature TIMBO BURGESS RN 1 <+> RN Sign Out Signature Date/Time 1 <+> Urinary Catheter Documented in IView [facility] Skin Prep Entry 1 Procedure Knee Total Joint Revision Prescribed Yes Pre-Surgical Prep Completed Prep Area OPSITE Intraop Prep Integumentary WDL with patient Assessment WDL specific variances Prep Agents Chloraprep Prep by TIMBO BURGESS, LISBETH Hair Removal Last Modified By: TIMBO BURGESS RN 08/31/18 15:03:47 [facility] Surgical Procedures Entry 1 Procedure Knee Total Joint Revision Additional EXPLANTATION OF LEFT Procedure TOTAL KNEE WITH Description INSERTION OF CEMENT SPACER Primary Procedure Yes Primary Surgeon JONG SANTACRUZ MD-ORT Start 08/31/18 14:47:00 Stop 08/31/18 17:07:00 Anesthesia Type General Specialty SN Orthopedic Wound Class I - Clean Last Modified By: TIMBO BURGESS RN 08/31/18 15:03:59 [facility] Surgical Procedures Audit 08/31/18 17:14:39 Pot Annealer: CRMOSS Modifier: HUIDSR <+> 1 Stop [facility] Temp Regulation Devices Entry 1 Temp Regulation Temperature Forced Air Warming Regulation Device device Temperature Upper body Regulation Site Last Modified By: TIMBO BURGESS RN 08/31/18 15:04:02 [facility] Time Out Entry 1 Procedure to be Knee Total Joint Performed Revision Time Out Time Out Pause Time 08/31/18 14:46:00 All activity Yes suspended (unless life threatening [...] present, Performed in location of procedure after prepped/draped Antibiotic Yes Prophylaxis Administered Or In Progress Within the Last 60 Minutes Beta Cherelle Yes Administered Venous Yes Thromboembolism Prophylaxis Required Anticipated Critical Events Surgeon None expected Anesthesia Provider None expected Nursing Assures Sterility of instruments, Implant Availability Essential Imaging N/A Labeled and Displayed Last Modified By: Adrián Stone RN 08/31/18 15:11:42 [facility] Tourniquet Entry 1 Type Pneumatic Setting 350 mmHg Pheumatic Yes Tourniquet Checked Per Protocol Size 42 inches Placement Thigh, left upper Skin Protection - Yes Padded Under Cuff Applied By JONG SANTACRUZ MD-ORT Times Start Time 08/31/18 14:45:00 Stop Time 08/31/18 14:50:00 Total Time 5 calculated manually (Mins) Last Modified By: TIMBO BURGESS RN 08/31/18 14:52:21 [facility] Tourniquet Audit 08/31/18 14:52:21 Pot Annealer: CRMOSS Modifier: CRMOSS <+> 1 Total Time calculated manually (Mins) <+> 1 Stop Time Case Comments <None> Finalized By: Adrián Stone, RN Document Signatures Signed By: Adrián Stone RN 08/31/18 17:14 Vivien Lopez RN 09/01/18 13:31 Adrián Stone RN 09/02/18 11:30 Unfinalized History Date/Time Username Reason for Unfinalizing Freetext Reason for Unfinalizing 09/01/18 13:27 CLOTILDER Modify Pick List 09/02/18 11:29 ARTEMIO Correct Billing Electronically signed by [facility] Conversion [employer] Manager Cerner at 07/24/2022 3:41 PM CDT documented in this encounter Plan of Treatment Not on file documented as of this encounter Visit Diagnoses Not on filedocumented in this encounter Care Teams Java Engineer Relationship Specialty Start Date End Date Juan José Kendall MD [address] [facility] [address] [place] [id number] PCP - General Family Medicine 12/25/22 Juan José Kendall MD [address] [facility] [address] [place] [phone] Referring Physician Family Medicine 12/25/22 documented as of this encounter
--- OUTSIDE RECORDS SUMMARY | 2024-03-11 09:23 | XMS_ITS | Encounter Summary ---
Author Organization [employer] Address [address] [place] [address] Care Team Providers Care College And Career Counselor Name Role Phone Juan José Kendall MD Primary Care Provider +- [phone] Juan José Kendall MD Unavailable [phone] Encounter Details Date Type Department Care Team (Late st Contact Info) Description 08/31/2018 Transcribed Document [facility] [place] [facility] [place] [address] ProviderLaurie MD [address] [place] [address] [id number] Social History Tobacco Use Types Packs/Day Years Used Date Smoking Tobacco: Never Assessed Comments Unknown Sex and Gender Information Value Date Recorded Sex Assigned at Not on file Legal Sex Female 2:23 PM CDT Gender Identity Not on file Sexual Orientation Not on file documented as of this encounter Miscellaneous Notes * Cerner Conversion Note - Laurie ProviderMD - 08/31/2018 10:56 AM CDT Patient: TRUDI BLAIR Age: [...] repair. She was more recently admitted to [facility] x2 earlier this month on [...] getting wound care. [place] [facility] [place] higher level [...] cast removed. PICC line with purulent drainage. ROS: Gen: No fevers, no chills, no night sweats, no weight loss Eys: no vision loss, no eye pain HENT: no pain in oropharynx, no nasal drainage Neck: mild chronic neck pain, no neck stiffness CV: no chest pain, no palpitations, no peripheral edema Pulm: no SOB, no cough, no hemoptysis Abd: no abdominal pain, no nausea, no diarrhea : no dysuria, no increased urinary frequency, no urinary urgency Heme: no bleeding, no bruising, no LAD Neuro: no WHITMAN, no weakness MSK: no joint swelling. no decreased ROM. No tenderness over spine Skin: no rash, no skin breakdown Past Medical History:Active Problems (8) Arthritis At risk for sleep apnea Back pain GERD (gastroesophageal reflux disease) High cholesterol History of obstructive sleep apnea HTN (hypertension) Stress incontinence Past Surgical History: Left TKA, 2017 left patellar tendon repair, 06/2018 lumbar fusion hysterectomy right TKA right patellar tendon repair Family History: CAD HTN Cancer Social History: . lives in [place]. No tobacco, ETOH, or illicit drug use. Social & Psychosocial Habits Alcohol 06/23/2018 Alcohol Use History, Social Habits No Substance Abuse 06/23/2018 Recreational Drug Use History No Tobacco 06/23/2018 Smoking Status Never (less than 100 in l Smokeless Tobacco Status Never Medications by Classification Antimicrobials ertapenem - 1 Gram, IV Piggyback, [id number], infuse over 30 Minute(s), Routine DAPTOmycin + Sodium Chloride 0.9% intravenous solution 50 mL - 700 mg, IV Piggyback, [id number], infuse over 30 Minute(s) Cardiovascular metoprolol (Lopressor) - 25 mg, Oral, Tab, Daily, Routine cloNIDine - 0.1 mg, Oral, Tab, Q4H, PRN for Hypertension, Routine simvastatin - 40 mg, Oral, Tab, At Bedtime, Routine GI ondansetron - 4 mg, IV Push, Inj, Q4H, PRN for Nausea/Vomiting, Routine pantoprazole - 40 [...] PRN for Insomnia, Routine Pain Meds HYDROmorphone (Dilaudid) - 0.5 mg, IV Push, Inj, Q2H, PRN for Pain (Severe 7-10), Routine acetaminophen-hydrocodone (acetaminophen-HYDROcodone 325 mg- - 1 Tab, Oral, Tab, Q4H, PRN for Pain (Moderate 4-6), Routine acetaminophen-hydrocodone (acetaminophen-HYDROcodone 325 mg- - 2 Tab, Oral, Tab, Q4H, PRN for Pain (Severe 7-10), Routine acetaminophen (Tylenol) - 650 mg, Oral, [...] Q2H, PRN for Other (See Comment), Routine Allergies (1) Active Reaction Biaxin Acid reflux Vitals Signs (last 24 hrs) Last Charted Minimum Maximum Temp 98.4 (AUGUST 31:30) 97.6 (AUGUST 30 15:00) 98.2 (AUGUST 31 04:00) Apical HR L 55 (AUGUST 31 09:54) L 55 (AUGUST 31 09:54) L 55 (AUGUST 31 09:54) Mon HR 54 (AUGUST 31:30) 54 (AUGUST 31 09:30) 82 (AUGUST 30 15:00) Resp Rate 18 (AUGUST 31:30) 16 (AUGUST 30 15:00) 18 (AUGUST 31:30) SBP 112 (AUGUST 31 09:54) 106 (AUGUST 31 04:00) 123 (AUGUST 30 15:00) DBP L 45 (AUGUST 31 09:54) L 41 (AUGUST 31 04:00) L 57 (AUGUST 30 15:00) MAP 57 (AUGUST 31 04:00) 57 (AUGUST 31 04:00) 78 (AUGUST 30 14:37) SpO2 97 (AUGUST 31:30) 96 (AUGUST 31 04:00) 99 (AUGUST 30 14:37) Gen: NAD. morbid obesity. pleasant HEENT: PERRL [...] affect Labs (Last four charted values) WBC 5.3 [...] Clearance (Current Encounter/Past 24 Hours) Creatinine Level 2.31 mg/dL WA 08/31/2018 06:18 Bun/Creatinine 13.9 08/31/2018 06:18 Estimated Creatinine Clearance 23.03 mL/Min 08/31/2018 06:18 Micro: OSH micro results (per records provided in chart): 08/10 blood culture: MRSA (Vanc CATHY=1) 08/10 urine cx: enterococcus faecalis 08/10 wound culture: MRSA, staph epi 08/19 blood cx: staph hominis 08/19 blood cx: enterococcus faecalis, vanc-S SJE micro results: 08/30/18 blood culture x 2: in lab Radiology Results (Last 48 hours) [id number] -- 08/30/2018 14:25 CR Chest 1 Vw [...] transcribed report. US Veins LE Duplex LTD LT (08/31/2018 09:12) Result: LEFT LOWER EXTREMITY VENOUS [...] hydronephrosis . IMPRESSION: Normal renal ultrasound . Impression: -MRSA septicemia- grew from 5/8 blood cultures and was likely associate with right leg wound and possibly infected prosthetic knee (although no culture data that I have seen from her knee) -enteroccocus UTI and septicemia- vanc sensitive enterococus grew from 5/17 blood culture and from 5/8 urine culture. some records reported enterobacter but this never grew from culture per OSH micro lab (must be an error) -Infected left leg wound- wound cultures grew staph epi and MRSA. 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 Dr. Shaffer evaluating and possible plans for surgery today. -DVT in left posterior tibial vein -Acute renal failure- Cr 2.43 which is up from baseline of 0.8. Possible secondary to ATN from sepsis. unclear if abx could have contributed and not sure if patient was on nephrotoxic abx at OSH. Will hold further vancomycin as it will be difficult to obtain proper vancomycin trough of 15-20 in setting of her reported septicemia, obestiy, and renal dysfunction. -morbidy obesity --Anemia --infected PICC line- will have removed and will get groshong cath placed Plan: f/u blood cultures wound care Agree with consult to Dr. Guerrero- possible surgery today continue to closely monitor cbc with diff and cmp agree with IVFs obtain TTE. can probably hold off on AJ as it appears that MRSA only grew from 1 blood culture set and we have a source continue daptomycin stop ertapenem restart ceftriaxone PICC line removal today and groshong cath placement tomorrow complex set of medical issues requiring a high level of medical decision making. Patient has risk for further morbidity including loss of her limb. I called OSH micro lab today Electronically signed by Aleks [facility] Conversion Healthcare Science Specialist Cerner at 07/24/2022 3:42 PM CDT documented in this encounter Plan of Treatment Not on file documented as of this encounter Visit Diagnoses Not on filedocumented in this encounter Care Teams College And Career Counselor Relationship Specialty Start Date End Date Juan José Kendall MD [address] [place] [id number] PCP - General Family Medicine 12/25/22 Juan José Kendall MD [address] [facility] [address] [place] [id number] Referring Physician Family Medicine 12/25/22 documented as of this encounter
--- OUTSIDE RECORDS SUMMARY | 2024-03-11 09:23 | XMS_ITS | Encounter Summary ---
Author Organization [employer] Address [address] [facility] [address] [address] Care Team Providers Care Weather Analyst Name Role Phone Juan José Kendall MD Primary Care Provider +- [phone] Juan José Kendall MD Unavailable [phone] Encounter Details Date Type Department Care Team (Late st Contact Info) Description 08/31/2018 Transcribed Document [facility] Family Medicine [address] [place] [address] ProviderLaurie MD [address] [place] [address] Social History Tobacco Use Types [...] Laurie ProviderMD - 08/31/2018 2:47 PM CDT [facility] [place] Summary Primary Physician: JONG SANTACRUZ MD-ORT Finalized Date/Time: 08/31/18 18:47:31 Pt. Name: TRUDI BLAIR/Sex: 1955 Female Med Rec #: [id number] Physician: JONES HIDALGO MD-INT Financial #: [id number] Pt. Type: I Room/Bed: [facility]/ Admit/Disch: 08/30/18 14:25:00 - Institution: [facility] [place] PAC[place] Case Times Entry 1 In PACU I 08/31/18 17:17:00 Ready for PACU 08/31/18 18:37:00 Discharge Discharge from PACU 08/31/18 18:37:00 I Last Modified By: Isabel Van AON-OV-JRLX-OP CAR 08/31/18 18:47:08 Finalized By: Isabel Van EXL-HL-UTPV-OP CAR Document Signatures Signed By: Isabel Van YZH-JF-QDPU-OP CAR 08/31/18 18:47 documented in this encounter Plan of Treatment Not on file documented as of this encounter Visit Diagnoses Not on filedocumented in this encounter Care Teams Weather Analyst Relationship Specialty Start Date End Date Juan José Kendall MD [address] [facility] [address] [place] [phone] PCP - General Family Medicine 12/25/22 Juan José Kendall MD [address] [facility] [address] [place] [id number] Referring Physician Family Medicine 12/25/22 documented as of this encounter
--- OUTSIDE RECORDS SUMMARY | 2024-03-11 09:23 | XMS_ITS | Encounter Summary ---
Author Organization [employer] Address [address] [place] [address] Care Team Providers Care Mini Shifter Name Role Phone Juan José Kendall MD Primary Care Provider +- [phone] Juan José Kendall MD Unavailable [phone] Encounter Details Date Type Department Care Team (Late st Contact Info) Description 08/31/2018 Transcribed Document [facility] [place] [address] ProviderLaurie MD [address] [place] [address] Social History Tobacco Use Types Packs/Day Years Used Date Smoking Tobacco: Never Assessed Comments Unknown Sex and Gender Information Value Date Recorded Sex Assigned at Not on file Legal Sex Female 2:23 PM CDT Gender Identity Not on file Sexual Orientation Not on file documented as of this encounter Miscellaneous Notes * Cerner Conversion Note - Historical ProviderMD - 08/31/2018 2:00 AM CDT Garment Mender Details Entered On: 08/31/2018 3:32 EDT Performed On: 08/31/2018 2:00 EDT by Steph Avendaño RN Order Details Transport Mode Order Detail : Bed (including specialty) Isolation Precautions Order Detail : Contact precautions Order Detail : 0 IV Order Detail : 1 Oxygen Order Detail : 0 Nurse Collect Order Detail : 0 Lift/Transfer : Maximal assist Central Line Order Detail : No Room Service : Not Appropriate Arterial Line : No Steph Avendaño RN - 08/31/2018 3:32 EDT documented in this encounter Plan of Treatment Not on file documented as of this encounter Visit Diagnoses Not on filedocumented in this encounter Care Teams Mini Shifter Relationship Specialty Start Date End Date Juan José Kendall MD [address] [facility] [address] [place] [address] PCP - General Family Medicine 12/25/22 Juan José Kendall MD [address] [facility] [address] [place] [address] Referring Physician Family Medicine 12/25/22 documented as of this encounter
--- OUTSIDE RECORDS SUMMARY | 2024-03-11 09:23 | XMS_ITS | Encounter Summary ---
Author Organization [employer] Address [address] [place] [address] Care Team Providers Care Access Analyst Name Role Phone Juan José Kendall MD Primary Care Provider + [phone] Juan José Kendall MD Unavailable [phone] Encounter Details Date Type Department Care Team (Late st Contact Info) Description 08/31/2018 Transcribed Document [facility] [place] [facility] [place] [address] ProviderLaurie MD [address] [place] [address] Social History Tobacco Use Types Packs/Day Years Used Date Smoking Tobacco: Never Assessed Comments Unknown Sex and Gender Information Value Date Recorded Sex Assigned at Not on file Legal Sex Female 2:23 PM CDT Gender Identity Not on file Sexual Orientation Not on file documented as of this encounter Miscellaneous Notes * Cerner Conversion Note - Laurie ProviderMD - 08/31/2018 6:57 AM CDT Consult Phone Call Documentation Entered On: 08/31/2018 8:40 EDT Performed On: 08/31/2018 6:57 EDT by SHEN WOODS Phone Call for Consults Consult Phone Call/Page Attempt : First call Physician Requesting Consult : JONES HIDALGO MD-INT Physician Requested for Consult : LINDA MARQUEZ MD-NEP Physician Covering for Consult : LINDA MARQUEZ MD-NEP Date and Time Call Returned : 08/31/2018 8:40 EDT SHEN WOODS - 08/31/2018 8:40 EDT Electronically signed by Aleks [facility] Conversion Film Processing Supervisor Cerner at 07/24/2022 3:32 PM CDT documented in this encounter Plan of Treatment Not on file documented as of this encounter Visit Diagnoses Not on filedocumented in this encounter Care Teams Access Analyst Relationship Specialty Start Date End Date Juan José Kendall MD [address] [facility] [address] [place] [id number] PCP - General Family Medicine 12/25/22 Juan José Kendall MD 12[address] [facility] [address] [place] [phone] Referring Physician Family Medicine 12/25/22 documented as of this encounter
--- OUTSIDE RECORDS SUMMARY | 2024-03-11 09:23 | XMS_ITS | Encounter Summary ---
Author Organization [employer] Address [address] [place] [place] [address] Care Team Providers Care Muck Miner Name Role Phone Juan José Kendall MD Primary Care Provider +- [phone] Juan José Kendall MD Unavailable [phone] Encounter Details Date Type Department Care Team (Late st Contact Info) Description 08/31/2018 Transcribed Document [facility] [place] Family [place] [facility] [place] [address] ProviderLaurie MD [address] [place] [address] Social History Tobacco Use Types Packs/Day Years Used Date Smoking Tobacco: Never Assessed Comments Unknown Sex and Gender Information Value Date Recorded Sex Assigned at Not on file Legal Sex Female 2:23 PM CDT Gender Identity Not on file Sexual Orientation Not on file documented as of this encounter Miscellaneous Notes * Cerner Conversion Note - Laurie ProviderMD - 08/31/2018 6:28 PM CDT Pain Assessment Entered On: 09/01/2018 18:34 EDT Performed On: 09/01/2018 7:49 EDT by Jennifer Arndt, Registered Nurse Intervention Information: oxyCODONE Performed by Suzan Zapata, RN on 09/01/2018 06:49:00 EDT oxyCODONE,10mg Oral,Pain (Moderate 4-6) Pain Assessment [...] on filedocumented in this encounter Care Teams Muck Miner Relationship Specialty Start Date End Date Juan José Kendall MD [address] [facility] [address] [place] [phone] PCP - General Family Medicine 12/25/22 Juan José Kendall MD [address] [facility] [address] [place] [phone] Referring Physician Family Medicine 12/25/22 documented as of this encounter
--- OUTSIDE RECORDS SUMMARY | 2024-03-11 09:23 | XMS_ITS | Encounter Summary ---
Author Organization [employer] Address [address] [place] [address] Care Team Providers Care Aircraft Restorer Name Role Phone Juan José Kendall MD Primary Care Provider +- [phone] Juan José Kendall MD Unavailable [phone] Encounter Details Date Type Department Care Team (Late st Contact Info) Description 08/31/2018 Transcribed Document [facility] Family [place] [address] ProviderLaurie MD [address] [place] [id number] Social History Tobacco Use Types Packs/Day Years [...] 6:28 PM CDT Pain Assessment Entered On: 09/04/2018 5:03 EDT Performed On: 09/04/2018 3:38 EDT by Dayday Crump, RN Intervention Information: HYDROmorphone Performed by Dayday Crump RN on 09/04/2018 03:08:00 EDT HYDROmorphone,0.5mg IV Push,Groshong proximal,Pain (Severe 7-10) Pain Assessment Pain Assessment : Follow-up assessment Pain Scale Goal : 3 Pain Intervention, Drug : Medicated Pain Improved by Intervention : Yes Dayday Crump RN - 09/04/2018 5:03 EDT documented in this encounter Plan of Treatment Not on file documented as of this encounter Visit Diagnoses Not on filedocumented in this encounter Care Teams Aircraft Restorer Relationship Specialty Start Date End Date Juan José Kendall MD [address] [facility] [address] [place] [phone] PCP - General Family Medicine 12/25/22 Juan José Kendall MD [address] [facility] [address] [place] [phone] Referring Physician Family Medicine 12/25/22 documented as of this encounter
--- OUTSIDE RECORDS SUMMARY | 2024-03-11 09:24 | XMS_ITS | Encounter Summary ---
Author Organization [employer] Address [address] [place] [address] Care Team Providers Care Supervisor Operations Name Role Phone Juan José Kendall MD Primary Care Provider +- [phone] Juan José Kendall MD Unavailable [phone] Encounter Details Date Type Department Care Team (Late st Contact Info) Description 06/28/2018 Transcribed Document [facility] [facility] [place] [address] ProviderLaurie MD [address] [place] [phone] Social History Tobacco Use Types Packs/Day Years Used Date Smoking Tobacco: Never Assessed Comments Unknown Sex and Gender Information Value Date Recorded Sex Assigned at Not on file Legal Sex Female 2:23 PM CDT Gender Identity Not on file Sexual Orientation Not on file documented as of this encounter Miscellaneous Notes * Cerner Conversion Note - Historical ProviderMD - 06/28/2018 9:00 AM CDT Pain Assessment Entered On: 06/28/2018 11:17 EDT Performed On: 06/28/2018 9:35 EDT by Janae Alonso Rn Intervention Information: morphine Performed by Janae Alonso Rn on 06/28/2018 08:35:00 EDT morphine,30mg Oral Pain Assessment Pain Assessment : Follow-up assessment Pain Scale Used : 0-10 Scale Janae Alonso Rn - 06/28/2018 11:17 EDT Pain Scale Intensity : 3 Janae Alonso Rn - 06/28/2018 11:17 EDT Image 4 - Images currently included in the form version of this document have not been included in the text rendition version of the form. documented in this encounter Plan of Treatment Not on file documented as of this encounter Visit Diagnoses Not on filedocumented in this encounter Care Teams Supervisor Operations Relationship Specialty Start Date End Date Juan José Kendall MD [address] [facility] [address] [place] [phone] PCP - General Family Medicine 12/25/22 Juan José Kendall MD [address] [facility] [address] [place] [phone] Referring Physician Family Medicine 12/25/22 documented as of this encounter
--- OUTSIDE RECORDS SUMMARY | 2024-03-11 09:24 | XMS_ITS | Encounter Summary ---
Author Organization [employer] Address [address] [place] [address] Care Team Providers Care Maintenance Carpenter Name Role Phone Juan José Kendall MD Primary Care Provider [phone]- [phone] Juan José Kendall MD Unavailable [phone] Encounter Details Date Type Department Care Team (Late st Contact Info) Description 06/27/2018 Transcribed Document [facility] [place] [facility] [place] [address] ProviderLaurie MD [address] [place] [address] Social History Tobacco Use Types Packs/Day Years Used Date Smoking Tobacco: Never Assessed Comments Unknown Sex and Gender Information Value Date Recorded Sex Assigned at Not on file Legal Sex Female 2:23 PM CDT Gender Identity Not on file Sexual Orientation Not on file documented as of this encounter Miscellaneous Notes * Cerner Conversion Note - Historical ProviderMD - 06/27/2018 3:45 PM CDT [facility] Main OR IntraOp Summary Primary Physician: JONG SANTACRUZ MD-ORT Finalized Date/Time: 06/28/18 12:38:51 Pt. Name: TRUDI BLAIR Morgan Rodriguez/Sex: 1955 Female Med Rec #: [id number] Physician: JONES HIDALGO MD-INT Financial #: [id number] Pt. Type: O Room/Bed: [facility]/ Admit/Disch: 06/27/18 03:45:00 - Institution: [facility] IntraOp Case Attendance Entry 1 Entry 2 Entry 3 Case Attendee JONG SANTACRUZ MD-EBONY HENDRIX, Stella Crawford, Lever Miller Role Performed Surgeon/Proceduralist, UX LEAD/Nurse Compliance Nurse Scrub, First First Time In 06/27/18 15:09:00 06/27/18 15:09:00 06/27/18 15:09:00 Time Out 06/27/18 18:32:00 06/27/18 17:03:00 06/27/18 17:09:00 Procedure Patella Tendon Patella Tendon Patella Tendon Repair(Left) Repair(Left) Repair(Left) Other Attendee Superficial Wound Closed By: Last Modified By: Ruby Flores RN Bland, Jordyn A, RN Bland, Jordyn A, RN 06/27/18 18:37:03 06/27/18 18:37:03 06/27/18 18:37:03 Entry 4 Entry 5 Entry 6 Case Attendee TANMAY SU, BELEM BEDOYA FA Accordino, Joe, ST Role Performed Osteopathic Medicine Teacher, Power Plant Electrician, First Scrub, Second Time In 06/27/18 15:09:00 06/27/18 15:09:00 06/27/18 17:02:00 Time Out 06/27/18 17:12:00 06/27/18 18:32:00 06/27/18 18:32:00 Procedure Patella Tendon Patella Tendon Patella Tendon Repair(Left) Repair(Left) Repair(Left) Other Attendee Superficial Wound Closed By: Last Modified By: Ruby Flores RN Bland, Jordyn A, RN Bland, Jordyn A, RN 06/27/18 18:37:03 06/27/18 18:37:03 06/27/18 18:37:03 Entry 7 Entry 8 Case Attendee AMRITA AVENDANO MD Bland, Jordyn A, RN Role Performed Anesthesiologist Osteopathic Medicine Teacher, Second Time In 06/27/18 17:02:00 06/27/18 17:12:00 Time Out 06/27/18 18:32:00 06/27/18 18:32:00 Procedure Patella Tendon Patella Tendon Repair(Left) Repair(Left) Other Attendee Superficial Wound Closed By: Last Modified By: Ruby Flores RN Bland, Jordyn A RN 06/27/18 18:37:03 06/27/18 18:37:03 S[facility] IntraOp Case Attendance Audit 06/27/18 18:37:03 Valve Inspector: CYNDI Modifier: GARY 1 <+> Time Out 1 <*> Procedure Patella Tendon Repair(Left) 2 <*> Procedure Patella Tendon Repair(Left) 3 <*> Procedure Patella Tendon Repair(Left) 4 <*> Procedure Patella Tendon Repair(Left) 5 <+> Time Out 5 <*> Procedure Patella Tendon Repair(Left) 6 <+> Time Out 6 <*> Procedure Patella Tendon Repair(Left) 7 <+> Time Out 7 <*> Procedure Patella Tendon Repair(Left) 8 <+> Time Out 8 <*> Procedure Patella Tendon Repair(Left) 06/27/18 17:13:29 Valve Inspector: CYNDI Modifier: CYNDI 3 <+> Time Out 3 <*> Procedure Patella Tendon Repair(Left) 4 <+> Time Out 4 <*> Procedure Patella Tendon Repair(Left) <+> 8 Case Attendee <+> 8 Role Performed <+> 8 Time In <+> 8 Procedure 06/27/18 17:04:20 Valve Inspector: CYNDI Modifier: CYNDI 2 <+> Time Out 2 <*> Procedure Patella Tendon Repair(Left) 06/27/18 17:03:51 Valve Inspector: CYNDI Modifier: CYNDI 1 <*> Procedure Patella Tendon Repair(Left) 2 <*> Procedure Patella Tendon Repair(Left) 3 <*> Procedure Patella Tendon Repair(Left) 4 <*> Procedure Patella Tendon Repair(Left) 5 <*> Procedure Patella Tendon Repair(Left) 6 <+> Time In 6 <*> Procedure Patella Tendon Repair(Left) <+> 7 Case Attendee <+> 7 Role Performed <+> 7 Time In <+> 7 Procedure 06/27/18 17:02:05 Valve Inspector: ALBERTINA Modifier: RONNYU <+> 6 Case Attendee <+> 6 Role Performed <+> 6 Procedure 06/27/18 16:23:38 Valve Inspector: LONGGA Modifier: LONGGA 1 <*> Procedure Knee Arthroscopy w Patella Ligament Alexx, Patella Tendon Repair(Left) 2 <*> Procedure Knee Arthroscopy w Patella Ligament Alexx, Patella Tendon Repair(Left) 3 <*> Procedure Knee Arthroscopy w Patella Ligament Alexx, Patella Tendon Repair(Left) 4 <*> Procedure Knee Arthroscopy w Patella Ligament Alexx, Patella Tendon Repair(Left) 5 <*> Procedure Knee Arthroscopy w Patella Ligament Alexx, Patella Tendon Repair(Left) 06/27/18 16:23:18 Valve Inspector: LONGGA Modifier: LONGGA 1 <*> Procedure Knee Arthroscopy w Patella Ligament Alexx 2 <*> Procedure Knee Arthroscopy w Patella Ligament Alexx 3 <*> Procedure Knee Arthroscopy w Patella Ligament Alexx 4 <*> Procedure Knee Arthroscopy w Patella Ligament Alexx 5 <*> Procedure Knee Arthroscopy w Patella Ligament Alexx 06/27/18 15:53:27 Valve Inspector: LONGGA Modifier: LONGGA <+> 1 Procedure 2 <+> Time In 2 <*> Procedure Knee Arthroscopy w Patella Ligament Alexx 3 <+> Time In 3 <*> Procedure Knee Arthroscopy w Patella Ligament Alexx 4 <+> Time In 4 <*> Procedure Knee Arthroscopy w Patella Ligament Alexx 5 <+> Time In 5 <*> Procedure Knee Arthroscopy w Patella Ligament Alexx [facility] IntraOp Case Times Entry 1 Patient In Room Time 06/27/18 15:09:00 Out Room Time 06/27/18 18:32:00 Anesthesia Start Time 06/27/18 15:09:00 Stop Time 06/27/18 18:32:00 Anesthesia Ready 06/27/18 15:09:00 Surgery / Procedure Times Start Time 06/27/18 15:45:00 Stop Time 06/27/18 18:30:00 Last Modified By: Ruby Flores RN 06/27/18 18:36:38 [facility] IntraOp Case Times Audit 06/27/18 18:36:38 Valve Inspector: SHANNANYNBLAND Modifier: JORDYNBLAND <+> 1 Out Room Time <+> 1 Stop Time 06/27/18 18:30:49 Valve Inspector: LONGGA Modifier: JORDYNBLAND <+> 1 Stop Time 06/27/18 15:50:08 Valve Inspector: LONGGA Modifier: LONGGA 1 <*> Start Time 06/27/18 15:48:00 06/27/18 15:48:47 Valve Inspector: LONGGA Modifier: LONGGA <+> 1 Start Time [facility] IntraOp Cautery Entry 1 ESU Identification Cautery Type Monopolar ESU ID Number [id number] ID Type Hospital Number Cautery Settings Cut Setting 50 Coag Setting 50 ESU Grounding Pad Ground Pad Type Adult Grounding Pad Site Right thigh Grounding Pad TANMAY SU RN Applied By Last Modified By: MACY SANCHEZ RN 06/27/18 15:52:42 [facility] IntraOp Communication Entry 1 Communication To Family/Significant other Communication By TANMAY SU RN Date and Time 06/27/18 15:53:00 Last Modified By: MACY SANCHEZ RN 06/27/18 15:53:04 [facility] IntraOp Counts Verification Entry 1 Entry 2 Entry 3 Procedure Patella Tendon Patella Tendon Patella Tendon Repair(Left) Repair(Left) Repair(Left) Count Info Count Type Sponge, Sharps Sponge, Sharps Sponge, Sharps, Miscellaneous Counts Verification Baseline/pre-procedure At time of permanent Before wound closure Sequence relief Count Results Correct, surgeon Correct, surgeon Correct, surgeon notified notified notified If Incorrect or Waived complete the Counts Action Taken form: If Intentional Retention, complete the Intential Retention form: Counts Performed By Count Performed By Stella Patel, Stella Parker Scrub Accordino, Joe, ST (Scrub) Tech Tech Count Performed By TANMAY SU, TANMAY JOHNSON RN Bland, Jordyn A, RN (RN) Last Modified By: TANMAY SU RN LEININGER, SUSAN, RN Bland, Jordyn A, RN 06/27/18 16:58:57 06/27/18 17:02:21 06/27/18 17:59:23 S[facility] IntraOp Counts Verification Audit 06/27/18 17:59:23 Valve Inspector: CYNDI Modifier: GARY <+> 3 Procedure <+> 3 Count Type <+> 3 Counts Verification Sequence <+> 3 Count Results <+> 3 Count Performed By (Scrub) <+> 3 Count Performed By (RN) 06/27/18 17:02:21 Valve Inspector: CYNDI Modifier: CYNDI <+> 2 Procedure <+> 2 Count Type <+> 2 Counts Verification Sequence <+> 2 Count Results <+> 2 Count Performed By (Scrub) <+> 2 Count Performed By (RN) 06/27/18 16:58:57 Valve Inspector: LONGGA Modifier: LEINSU 1 <*> Procedure Patella Tendon Repair(Left) 1 <+> Count Results 1 <+> Count Performed By (Scrub) 1 <+> Count Performed By (RN) 06/27/18 16:23:39 Valve Inspector: LONGGA Modifier: LONGGA 1 <*> Procedure Knee Arthroscopy w Patella Ligament Alexx, Patella Tendon Repair(Left) 06/27/18 16:23:20 Valve Inspector: LONGGA Modifier: LONGGA 1 <*> Procedure Knee Arthroscopy w Patella Ligament Alexx SJE IntraOp Counts Final Entry 1 Procedure Patella Tendon Repair(Left) Final Count Info Count Type Sponge, Sharps, Miscellaneous Counts Verification Skin Closure/end of Sequence procedure Count Results Correct, surgeon notified Counts Performed By Count Performed By Corona Velasquez ST (Scrub) Count Performed By Ruby Flores RN (RN) Last Modified By: Ruby Flores RN 06/27/18 18:07:22 S[facility] IntraOp Departure from OR Entry 1 Integumentary Assessment Transfer/Handoff Transfer to PACU Phase I Post-op Transport Stretcher/Alexys Via Patient Transport TANMAY SU RN Accompanied by Last Modified By: MACY SANCHEZ RN 06/27/18 16:08:58 [facility] IntraOp Dressing and Packing Entry 1 Type Dressing Location OPSITE Supplemental Cervical Collar Applications Applied By BELEM MURGUIA FA Last Modified By: MACY SANCHEZ RN 06/27/18 15:56:14 S[facility] IntraOp Fire Risk Assessment Entry 1 Fire Info Surgical Site or 0- No Incision Above the Xyphoid Open O2 Source 0- No (Mask or Cannula) Available Ignition 1- Yes (ESU, Laser, Light Source) Fire Risk 1 Assessment Score Fire Score Fire Risk Yes Assessment Complete Fire Risk TANMAY SU RN Assessment Verified By Fire Risk 06/27/18 15:43:00 Assessment Verified Date/Time Fire Risk High Risk Protocol Yes Implemented Standard Fire Yes Safety Precautions Followed Last Modified By: MACY SANCHEZ RN 06/27/18 15:53:08 S[facility] IntraOp Fire Risk Assessment Audit 06/27/18 15:53:08 Valve Inspector: LONGGA Modifier: LONGGA <+> 1 Fire Risk Assessment Complete 06/27/18 15:52:54 Valve Inspector: LONGGA Modifier: LONGGA <+> 1 Fire Risk Assessment Verified Date/Time S[facility] IntraOp General Case Sounding Device Operator 1 Case Information OR OR 02 SJE Case Level 1 Room Verified Yes Wound Class I - Clean Specialty SN Orthopedic Anesthesia Type General ASA Class 3 Diagnosis Preop Diagnosis PATELLA TENDON RUPTURE LEFT Postop Same As Preop Yes Postop Diagnosis PATELLA TENDON RUPTURE LEFT Last Modified By: MACY SANCHEZ RN 06/27/18 15:54:09 S[facility] IntraOp Implant Log Entry 1 Entry 2 Entry 3 Type Implant (Synthetic) Implant (Synthetic) Implant (Synthetic) Implant Log Implant Type Mesh Bone Cement Hardware Tissue Implant Type Implant MESH KARLA PROL CEMENT BONE COBALT HV WASHR 10MM SCR ANDRAE Identification [id number] 4.5MM [id number] Description Implant Quantity 1 2 1 Implant Site LEFT PATELLAR TENDON LEFT KNEE LEFT KNEE Implant Identification Model Number Implant Identification Serial Number Implant [id number] Identification Lot Number Implant J&J:Ethicon Dj Surg:Encore Synthes:Synthes [place] Identification Med:[place] Environmental Intern Name: Implant PML 600-15-000 219.91 Identification Catalog Number Implant Size Implant Has an Expiration Date Implant Expiration 10/02/21 08/19/19 Date Wasted Radioactive Material Time Implanted Tissue Implant Continue for Tissue Implant Documentation Tissue Identification Number Graft Prep Per Environmental Intern Instructions: Tissue Preparation Method: Reconstitution Solution: Reconstitution Solution Lot Number Reconstitution Solution Expiration Date: Thawing Solution Thawing Solution Lot Number Thawing Solution Expiration Date Preparation Materials, Other Preparation Materials, Other Lot Number Preparation Materials, Other Expiration Date Tissue Prepared/Processed By Environmental Intern Paperwork Completed Implant Type Comment Last Modified By: MACY SANCHEZ RN LONGSWORTH, GARY, RN LONGSWORTH, GARY, RN 06/27/18 16:00:57 06/27/18 16:27:22 06/27/18 16:43:00 Entry 4 Type Implant (Synthetic) Implant Log Implant Type Hardware Tissue Implant Type Implant SCR [facility] LCP PT [id number] Identification [id number] Description Implant Quantity 1 Implant Site left knee Implant Identification Model Number Implant Identification Serial Number Implant Identification Lot Number Implant Synthes:Synthes [place]sa Identification Environmental Intern Name: Implant [id number] Identification Catalog Number Implant Size Implant Has an Expiration Date Implant Expiration Date Wasted Radioactive Material Time Implanted Tissue Implant Continue for Tissue Implant Documentation Tissue Identification Number Graft Prep Per Environmental Intern Instructions: Tissue Preparation Method: Reconstitution Solution: Reconstitution Solution Lot Number Reconstitution Solution Expiration Date: Thawing Solution Thawing Solution Lot Number Thawing Solution Expiration Date Preparation Materials, Other Preparation Materials, Other Lot Number Preparation Materials, Other Expiration Date Tissue Prepared/Processed By Environmental Intern Paperwork Completed Implant Type Comment Last Modified By: TANMAY SU RN 06/27/18 16:59:30 [facility] IntraOp Implant Log Audit 06/27/18 16:59:30 Valve Inspector: LONGGA Modifier: LEINSU <+> 4 Implant Identification Description <+> 4 Implant Identification Environmental Intern Name: <+> 4 Implant Site <+> 4 Implant Quantity <+> 4 Implant Identification Catalog Number <+> 4 Implant Type <+> 4 Type 06/27/18 16:43:00 Valve Inspector: LONGGA Modifier: LONGGA <+> 3 Implant Identification Description <+> 3 Implant Identification Environmental Intern Name: <+> 3 Implant Site <+> 3 Implant Quantity <+> 3 Implant Identification Catalog Number <+> 3 Implant Type <+> 3 Type 06/27/18 16:27:22 Valve Inspector: LONGGA Modifier: LONGGA <+> 2 Implant Identification Description <+> 2 Implant Identification Lot Number <+> 2 Implant Identification Environmental Intern Name: <+> 2 Implant Expiration Date <+> 2 Implant Site <+> 2 Implant Quantity <+> 2 Implant Identification Catalog Number <+> 2 Implant Type <+> 2 Type [facility] IntraOp Intraoperative Assessment Entry 1 Valid History / Yes Physical in Chart Preoperative Yes Checklist Reviewed/Evaluated Allergies Reviewed Yes Patient is Latex No Sensitive Skin Assessment Yes Verified Present Upon IVs Arrival to OR Last Modified By: MACY SANCHEZ RN 06/27/18 15:55:12 [facility] IntraOp Intraoperative Equipment Entry 1 Equipment ID Number [id number] Intraop Monitoring Electrocardiogram Three lead placement (ECG) Electrode Placement Antiembolic Devices Antiembolic Devices Sequential compression device, knee high Antiembolic Device Right Location Antiembolic Device [id number] ID Number Scopes Photo/Video Documentation Last Modified By: MACY SANCHEZ RN 06/27/18 15:57:19 [facility] IntraOp Patient Positioning Entry 1 Procedure Patella Tendon Repair(Left) Body Position Supine Left Arm Position Secured on padded arm board Right Arm Position Secured on padded arm board Left Leg Position Dangling Right Leg Position Dangling Feet Uncrossed Yes Pressure Points Yes Checked Positioning Devices Arm Board, Arthroscopy Knee Lozoya, Pillows Device Position FOOT OF BED DOWN Positioned By JONG SANTACRUZ MD-ALLEGRA, TANMAY SU, RN, EBONY JOHNSON CRNA, BELEM MURGUIA, RAMANA Position Verified Positioning Yes Verified by Anesthesia Positioning Yes Verified by Surgeon Last Modified By: MACY SANCHEZ RN 06/27/18 16:23:39 [facility] IntraOp Patient Positioning Audit 06/27/18 16:23:39 Valve Inspector: LONGGA Modifier: LONGGA 1 <*> Procedure Knee Arthroscopy w Patella Ligament Alexx, Patella Tendon Repair(Left) 06/27/18 16:23:20 Valve Inspector: LONGGA Modifier: LONGGA 1 <*> Procedure Knee Arthroscopy w Patella Ligament Alexx S[facility] IntraOp Sign In Entry 1 Patient, Site, Yes Procedure Identified Surgical Consent Yes Confirmed Relevant Surgical Yes Documents Available Surgical Site Yes Marked by person performing procedure Anesthesia Machine Yes Check Completed Medication Checks Yes Completed Allergies Yes Airway Difficult No Airway/Aspiration Risk Difficult No Airway/Aspiration Intervention Equipment Available Blood Loss Risk No Blood Loss No Intervention Equipment Prepared and Ready Blood Identifiers Not applicable Verified Per Policy Hypothermia Risk Yes Warming Measures Yes Taken Last Modified By: MACY SANCHEZ RN 06/27/18 15:53:44 [facility] Intra Op Sign Out Entry 1 RN Confirmation Surgical Yes Procedure(s) Identified Instrument, Sponge Yes and Sharps Counts Correct/Documented Specimen Labeled N/A Correctly Urinary Catheter N/A Documented in IView Safety Checklist Yes Elements Complete? RN Sign Out Ruby Flores RN Signature RN Sign Out 06/27/18 18:32:00 Signature Date/Time Plan of Care Outcome - [...] related to extraneous objects Last Modified By: Ruby Flores RN 06/27/18 18:37:01 S[facility] IntraOp Skin Prep Entry 1 Procedure Patella Tendon Repair(Left) Prescribed Yes Pre-Surgical Prep Completed Prep Area OPISTE Intraop Prep Prep Agents Chloraprep Hair Removal Last Modified By: MACY SANCHEZ RN 06/27/18 16:23:39 S[facility] IntraOp Skin Prep Audit 06/27/18 16:23:39 Valve Inspector: LONGGA Modifier: LONGGA 1 <*> Procedure Knee Arthroscopy w Patella Ligament Alexx, Patella Tendon Repair(Left) 06/27/18 16:23:21 Valve Inspector: LONGGA Modifier: LONGGA 1 <*> Procedure Knee Arthroscopy w Patella Ligament Alexx S[facility] IntraOp Surgical Procedures Entry 1 Procedure Patella Tendon Repair Modifiers Left Primary Procedure Yes Primary Surgeon JONG SANTACRUZ MD-ORT Start 06/27/18 15:45:00 Stop 06/27/18 18:30:00 Anesthesia Type General Specialty SN Orthopedic Wound Class I - Clean Last Modified By: Ruby Flores RN 06/27/18 18:31:02 SJE IntraOp Surgical Procedures Audit 06/27/18 18:31:02 Valve Inspector: PINKYAND Modifier: JORDYNBLAND 1 <*> Procedure Patella Tendon Repair 1 <*> Primary Procedure No 06/27/18 18:30:50 Valve Inspector: LONGGA Modifier: JORDYNBLAND <+> 1 Stop 06/27/18 16:23:51 Valve Inspector: LONGGA Modifier: LONGGA Entry 1 was deleted. Higher numbered entries shifted one position to fill the gap. <-> 1 Procedure Knee Arthroscopy w Patella Ligament Reconstr <-> 1 Primary Procedure Yes <-> 1 Modifiers <-> 1 Primary Surgeon JONG SANTACRUZ MD-ORT <-> 1 Specialty <-> 1 Start 06/27/18 15:45:00 <-> 1 Wound Class I - Clean <-> 1 Anesthesia Type General <-> 1 Additional Procedure Description LEFT PATELLAR TENDON RECONSTRUCTION 06/27/18 16:23:14 Valve Inspector: LONGGA Modifier: LONGGA <+> 2 Procedure <+> 2 Primary Procedure <+> 2 Modifiers <+> 2 Primary Surgeon <+> 2 Specialty <+> 2 Wound Class <+> 2 Anesthesia Type SJE IntraOp Temp Regulation Devices Entry 1 Temp Regulation Temperature Forced Air Warming Regulation Device device Temperature Upper body Regulation Site Temperature EBONY JOHNSON CRNA Regulation Device Applied by Last Modified By: MACY SANCHEZ RN 06/27/18 15:55:54 S[facility] IntraOp Time Out Entry 1 Procedure to be Patella Tendon Performed Repair(Left) Time Out Time Out Pause Time 06/27/18 15:43:00 All activity Yes suspended (unless life threatening [...] Displayed Last Modified By: MACY SANCHEZ RN 06/27/18 16:23:39 S[facility] IntraOp Time Out Audit 06/27/18 16:23:39 Valve Inspector: ALBERTINA Modifier: ALBERTINA 1 <*> Procedure to be Performed Knee Arthroscopy w Patella Ligament Alexx, Patella Tendon Repair(Left) 06/27/18 16:23:21 Valve Inspector: ALBERTINA Modifier: DARRELGA 1 <*> Procedure to be Performed Knee Arthroscopy w Patella Ligament Alexx SJE IntraOp Tourniquet Entry 1 Type Pneumatic Setting 350 mmHg Pheumatic Yes Tourniquet Checked Per Protocol Size 42 inches Placement Thigh, left upper Skin Protection - Yes Padded Under Cuff Applied By JNOG SANTACRUZ MD-ORT Times Start Time 06/27/18 15:44:00 Stop Time 06/27/18 17:45:00 Last Modified By: Ruby Flores RN 06/27/18 17:45:26 S[facility] IntraOp Tourniquet Audit 06/27/18 17:45:26 Valve Inspector: CYNDI Modifier: GARY <+> 1 Stop Time 06/27/18 16:56:35 Valve Inspector: CYNDI Modifier: CYNDI <+> 1 Start Time 06/27/18 16:53:25 Valve Inspector: ALBERTINA Modifier: CYNDI <+> 1 Setting <+> 1 Applied By <+> 1 Size Case Comments <None> Finalized By: Vivien Lopez, RN Document Signatures Signed By: Ruby Flores RN 06/27/18 18:37 Vivien Lopez RN 06/28/18 12:38 Unfinalized History Date/Time Username Reason for Unfinalizing Freetext Reason for Unfinalizing 06/28/18 12:36 [place]ROE Modify Pick List Electronically signed by [facility], [facility] Conversion Pooling Operator Cerner at 07/24/2022 3:54 PM CDT documented in this encounter Plan of Treatment Not on file documented as of this encounter Visit Diagnoses Not on filedocumented in this encounter Care Teams Maintenance Carpenter Relationship Specialty Start Date End Date Juan José Kendall MD [address] [facility] [address] [place] [id number] PCP - General Family Medicine 12/25/22 Juan José Kendall MD [address] [facility] [address] [place] [phone] Referring Physician Family Medicine 12/25/22 documented as of this encounter
--- OUTSIDE RECORDS SUMMARY | 2024-03-11 09:24 | XMS_ITS | Encounter Summary ---
Author Organization [employer] Address [address] [facility] [place] [address] Care Team Providers Care Materials Technician Name Role Phone Juan José Kendall MD Primary Care Provider [phone]- [phone] Juan José Kendall MD Unavailable [phone] Encounter Details Date Type Department Care Team (Late st Contact Info) Description 06/27/2018 Transcribed Document [facility] Family Medicine [facility] [place] [address] ProviderLaurie MD [address] [place] [address] [id number] Social History Tobacco Use Types Packs/Day Years Used Date Smoking Tobacco: Never Assessed Comments Unknown Sex and Gender Information Value Date Recorded Sex Assigned at Not on file Legal Sex Female 2:23 PM CDT Gender Identity Not on file Sexual Orientation Not on file documented as of this encounter Miscellaneous Notes * Cerner Conversion Note - Historical ProviderMD - 06/27/2018 9:00 PM CDT Pain Assessment Entered On: 06/28/2018 1:47 EDT Performed On: 06/27/2018 23:13 EDT by Steph Avendaño RN Intervention Information: acetaminophen Performed by Farheen Macedo Rn on 06/27/2018 22:13:00 EDT acetaminophen,500mg Oral Pain Assessment Pain Assessment : Follow-up assessment Pain Scale Used : 0-10 Scale Pain Intervention, Drug : Medicated Pain Improved by Intervention : Yes Steph Avendaño RN - 06/28/2018 1:47 EDT Pain Scale Intensity : 0 Steph Avendaño RN - 06/28/2018 1:47 EDT Image 4 - Images currently included in the form version of this document have not been included in the text rendition version of the form. documented in this encounter Plan of Treatment Not on file documented as of this encounter Visit Diagnoses Not on filedocumented in this encounter Care Teams Materials Technician Relationship Specialty Start Date End Date Juan José Kendall MD [address] [facility] [address] [place] [phone] PCP - General Family Medicine 12/25/22 Juan José Kendall MD [address] [place] [address] [address] [place] [phone] Referring Physician Family Medicine 12/25/22 documented as of this encounter
--- OUTSIDE RECORDS SUMMARY | 2024-03-11 09:24 | XMS_ITS | Encounter Summary ---
Author Organization [email or web address] Address [address] [place] [address] Care Team Providers Care Fan Runner Name Role Phone Romulo Kendall MD Primary Care Provider +- [phone] Romulo Kendall MD Unavailable [phone] Encounter Details Date Type Department Care Team (Late st Contact Info) Description 06/28/2018 Transcribed Document [facility] [place] [facility] [place] [address] ProviderLaurie MD [address] [place] [address] Social History Tobacco Use Types Packs/Day Years Used Date Smoking Tobacco: Never Assessed Comments Unknown Sex and Gender Information Value Date Recorded Sex Assigned at Not on file Legal Sex Female 2:23 PM CDT Gender Identity Not on file Sexual Orientation Not on file documented as of this encounter Miscellaneous Notes * Cerner Conversion Note - Laurie ProviderMD - 06/28/2018 8:02 AM CDT [place] [address], [place] [address] Patient Copy Patient Information: Name: TRUDI BLAIR Current Date: 06/28/2018 08:02:50 : 1955 Patient Address: [address] [place] [id number] Patient Attending Physician: JONES HIDALGO MD-INT Primary Care Provider: ROMULO KENDALL MD Primary Care Provider Discharge Diagnosis: Weight on Admission: 265 lb, 0 oz Comment: Follow-up Instructions: With: Address: When: JONG SANTACRUZ [facility], [address]ND FLOOR [place], [place] [id number] [employer] (1) 1:00 PM Comments: Appointment has been made Discharge Instructions: Immunizations Documented During Stay: No Immunizations Found Heart Failure Discharge Instructions (if any): Stroke Related Discharge Instructions (if any): Warfarin Related Discharge Instructions (if any): Final Medication List: Other Medications baclofen (baclofen 10 mg oral tablet) 2 Tablet(s) Oral Every Evening. 1 tab in am, 2 in pm. celecoxib 200 Milligram(s) Oral Every Day. gabapentin (gabapentin 300 mg oral capsule) 1 Capsule(s) Oral Two Times A Day. metoclopramide (metoclopramide 10 mg oral tablet) 1 Tablet(s) Oral Two Times A Day. metoprolol (Metoprolol Tartrate) 50 Milligram(s) Oral Every Day. morphine (morphine 30 mg/12 hr oral tablet, extended release) 1 Tablet(s) Oral Two Times A Day. sometimes takes 2 tablets at bedtime. omeprazole (omeprazole 20 mg oral delayed release tablet) 1 Tablet(s) Oral Every Day. oxybutynin (oxybutynin 5 mg oral tablet) 1 Tablet(s) Oral Two Times A Day. potassium chloride (potassium chloride 20 mEq oral tablet, extended release) 1 Tablet(s) Oral Two Times A Day. simvastatin (simvastatin 40 mg oral tablet) 1 Tablet(s) Oral At Bedtime. topiramate (topiramate 25 mg oral capsule) 1 Capsule(s) Oral Two Times A Day. Patient Allergies: Biaxin Medication Instructions: Take your medications faithfully. Do NOT skip [...] cramping, rapid heartbeat, difficulty sleeping, and nervousness. Patient education materials: What to expect after the Procedure: After [...] are no longer using the walker Other: ? Wear compression stocking for 6 weeks remove to inspect skin, then put back on ?? Use ice therapy for 20-30 minutes [...] Barley. Bulgur wheat. Millet. Bran muffins. Popcorn. [place] wafer crackers. ?? Vegetables Sweet potatoes. Spinach. Kale. Artichokes. Cabbage. Broccoli. Green peas. Carrots. Squash. ?? Fruits Berries. Pears. Apples. Oranges. Avocados. Prunes and raisins. Dried figs. ?? Meats and Other Protein Sources Kramer, kidney, saxena, and soy beans. Split peas. Lentils. Nuts and seeds. ?? Dairy Fiber-fortified yogurt. ?? Beverages Fiber-fortified soy milk. Fiber-fortified orange juice. ?? Other Fiber bars. High-protein foods: To promote healing High-protein foods contain 4 grams (4 g) or more of protein per serving. They include: ?? Beef, ground sirloin (cooked) ??? 3 oz have 24 g of protein. ?? Cheese (hard) ??? 1 oz has 7 g of protein. ?? Chicken breast, boneless and skinless (cooked) ??? 3 oz have 13.4 g of protein. ?? Cottage cheese ??? 1/2 cup has 13.4 g of protein. ?? Egg ??? 1 egg has 6 g of protein. ?? Fish, filet (cooked) ??? 1 oz has 6???7 g of protein. ?? Garbanzo beans (canned or cooked) ??? 1/2 cup has 6???7 g of protein. ?? Kidney beans (canned or cooked) ??? 1/2 cup has 6???7 g of protein. ?? Talavera (cooked) ??? 3 oz has 24 g of protein. ?? Milk ??? 1 cup (8 oz) has 8 g of protein. ?? Nuts (peanuts, pistachios, almonds) ??? 1 oz has 6 g of protein. ?? Peanut butter ??? 1 oz has 7???8 g of protein. ?? Pork tenderloin (cooked) ??? 3 oz has 18.4 g of protein. ?? Pumpkin seeds ??? 1 oz has 8.5 g of protein. ?? Soybeans (roasted) ??? 1 oz has 8 g of protein. ?? Soybeans (cooked) ??? 1/2 cup has 11 g of protein. ?? Soy milk ??? 1 cup (8 oz) has 5???10 g of protein. ?? Soy or vegetable henry ??? 1 henry has 11 g of protein. ?? [place] seeds ??? 1 oz has 5.5 g of protein. ?? Tofu (firm) ??? 1/2 cup has 20 g of protein. ?? Tuna (canned in water) ??? 3 oz has 20 g of protein. ?? Yogurt ??? 6 oz has 8 g [...] floor. ?? Place frequently used items in ktrd-cw-bjrht places ?? Keep electrical cables out of [...] ? Using the bathroom. ? Using household vrt mechanic or toxic chemicals. ? Touching or taking [...] your foot or ankle. ? Increased pain. Medication Leaflets: acetaminophen and oxycodone (a SEET a MIN [...] acetaminophen or oxycodone, or if you have: ? severe asthma or breathing problems; or ?? a blockage in your stomach or intestines. Tell your doctor if you have ever had: ? liver disease; ?? a drug or alcohol [...] your doctor at once if you have: ? noisy breathing, sighing, shallow breathing; ?? a [...] fertility are permanent. Common side effects include: ? dizziness, drowsiness, feeling tired; ?? feelings of extreme happiness or sadness; ?? nausea, vomiting, stomach pain; ?? constipation; or ?? headache. This is not a complete list of side effects and others may occur. Call your doctor for medical advice about side effects. You may report side effects to FDA at 5-938-SXE-7521. What other drugs will affect acetaminophen and [...] your doctor knows if you also use: ? cold or allergy medicines, bronchodilator asthma/COPD medication, [...] affect acetaminophen and oxycodone, including prescription and vleu-knu-wlrqzuy medicines, vitamins, and herbal products. Not all [...] to ensure that the information provided by [employer]. ('[employer]') is accurate, up-to-date, and complete, but no guarantee is made to that effect. Drug information contained herein may be time sensitive. [employer] information has been compiled for use by healthcare practitioners and consumers in the [place] and therefore [employer] does not warrant that uses outside of the [place] are appropriate, unless specifically indicated otherwise. [employer] drug information does not endorse drugs, diagnose patients or recommend therapy. [employer] drug information is an informational resource designed [...] effective or appropriate for any given patient. [employer] does not assume any responsibility for any aspect of healthcare administered with the aid of information [employer] provides. The information contained herein is not intended to cover all possible uses, directions, precautions, warnings, drug interactions, allergic reactions, or adverse effects. If you have questions about the drugs you are taking, check with your doctor, nurse or pharmacist. Copyright 5749-7372 [employer]. Version: 18.02. Revision Date: 03/02/2018. CIGARETTE SMOKING: The facts are clear, cigarette smoking will shorten your life. Smoking can cause many illnesses along the way. As a healthcare provider, we recommend that you stop smoking. Assistance with quitting is available by contacting 3-174-LBNB-NOW. This is a free resource providing counseling, support, and referral. Or you may contact your personal physician. 4 WAYS TO GET AHEAD OF SEPSIS SEPSIS is a MEDICAL EMERGENCY. Time matters! Infections put you and your family at risk for a life-threatening condition called sepsis. Sepsis is the body???s extreme response to an infection. It is life-threatening, and without timely treatment, sepsis can rapidly lead to tissue damage, organ failure, and . Sepsis happens when an infection you already have???in your skin, lungs, urinary tract or somewhere else???triggers a chain reaction throughout your body. 1 [...] sepsis or if you have an infection that???s not getting better or is getting worse. To learn more about sepsis and how to prevent infections, visit www.cdc.gov/sepsis. STROKE is an EMERGENCY Every [employer] Counts ACT F.A.S.T! FACE ?? Facial droop ?? Uneven smile ARM ?? Arm numbness ?? Arm weakness SPEECH ?? Slurred speech ?? Difficulty speaking or understanding TIME ?? Call 911 and get to the hospital immediately Have the ambulance go to the nearest stroke center. STROKE Risk Factors High blood pressure High cholesterol Heart Disease Diabetes Smoking Heavy alcohol use Physical inactivity and obesity Atrial Fibrillation (irregular heartbeat) Family history of stroke Reminder: Be sure to sign up for the Generate patient portal, which gives you 26/10 access to your medical information ??? including these discharge instructions ??? using your computer, smartphone, or tablet. Just go to [employer] to get started. Questions? Call . [facility] would like to thank you for allowing us to assist you with your healthcare needs. IBAIRON SANDRA K, (or sales representative metals) have received the above patient education materials/instructions and have verbalized understanding: Patient Signature _ Date/Time Patient Sas Architect Signature (if needed) Date/Time Clinician/Hospital Sas Architect Signature (if needed) Date/Time Electronically signed by Aleks, [facility] Conversion Rental Manager Cerner at 07/24/2022 3:33 PM CDT documented in this encounter Plan of Treatment Not on file documented as of this encounter Visit Diagnoses Not on filedocumented in this encounter Care Teams Fan Runner Relationship Specialty Start Date End Date Romulo Kendall MD [address] [place] [facility] [address] [place] [address] PCP - General Family Medicine 12/25/22 Romulo Kendall MD [address] [place] [facility] [address] [place] [address] Referring Physician Family Medicine 12/25/22 documented as of this encounter
--- OUTSIDE RECORDS SUMMARY | 2024-03-11 09:24 | XMS_ITS | Encounter Summary ---
Author Organization [employer] Address [address] [place] [address] Care Team Providers Care Machine Erector Name Role Phone Juan José Kendall MD Primary Care Provider + [phone] Juan José Kendall MD Unavailable [phone] Encounter Details Date Type Department Care Team (Late st Contact Info) Description 08/30/2018 Transcribed Document [facility] [place] [address] [place] [address] ProviderLaurie MD [address] [place] [address] Social History Tobacco Use Types Packs/Day Years Used Date Smoking Tobacco: Never Assessed Comments Unknown Sex and Gender Information Value Date Recorded Sex Assigned at Not on file Legal Sex Female 2:23 PM CDT Gender Identity Not on file Sexual Orientation Not on file documented as of this encounter Miscellaneous Notes * Cerner Conversion Note - Historical ProviderMD - 08/30/2018 3:21 PM CDT Consult Phone Call Documentation Entered On: 08/31/2018 9:29 EDT Performed On: 08/30/2018 15:21 EDT by SHEN WOODS Phone Call for Consults Consult Phone Call/Page Attempt : First call Physician Requesting Consult : JONES HIDALGO MD-INT Physician Requested for Consult : DARLENE HODGE MD-INF Physician Covering for Consult : DARLENE HODGE MD-INF Date and Time Call Returned : 08/31/2018 9:28 EDT SHEN WOODS - 08/31/2018 9:28 EDT Electronically signed by Aleks [facility] Conversion Bending Roll Operator Cerner at 07/24/2022 3:54 PM CDT documented in this encounter Plan of Treatment Not on file documented as of this encounter Visit Diagnoses Not on filedocumented in this encounter Care Teams Machine Erector Relationship Specialty Start Date End Date Juan José Kendall MD [address] [place] [facility] [address] [place] [address] PCP - General Family Medicine 12/25/22 Juan José Kendall MD [address] [facility] [address] [place] [address] Referring Physician Family Medicine 12/25/22 documented as of this encounter
--- OUTSIDE RECORDS SUMMARY | 2024-03-11 09:24 | XMS_ITS | Encounter Summary ---
Author Organization [facility] [employer] Address [address] [place] [address] Care Team Providers Care Jig Maker Name Role Phone Juan José Kendall MD Primary Care Provider +- [phone] Juan José Kendall MD Unavailable [phone] Encounter Details Date Type Department Care Team (Late st Contact Info) Description 08/30/[address] [facility] [place] Medicine [facility] [place] [address] ProviderLaurie MD [address] [place] [id number] Social History Tobacco Use Types Packs/Day Years Used Date Smoking Tobacco: Never Assessed Comments Unknown Sex and Gender Information Value Date Recorded Sex Assigned at Not on file Legal Sex Female 2:23 PM CDT Gender Identity Not on file Sexual Orientation Not on file documented as of this encounter Miscellaneous Notes * Cerner Conversion Note - Laurie ProviderMD - 08/30/2018 2:46 PM CDT Admission History, Adult Entered On: 08/30/2018 14:59 EDT Performed On: 08/30/2018 14:46 EDT by GIOVANNI GANDHI RN Advance Directive Patient has Advance Directive *Q : Yes, Advance Directive not with the patient Request Family/Rep to Provide Copy of AD : Yes Advance Directive Type : Living will Copy Advance Directive Verified/on Chart : No GIOVANNI GANDHI RN - 08/30/2018 14:46 EDT Anesthesia/Transfusion History Family History of Anesthesia Reaction : No prior transfusion(s) Blood Transfusion Acceptable to Patient : Yes Transfusion History : Prior anesthesia reaction Type of Anesthesia Reaction : Excessive somnolence Family History of Anesthesia Reaction : GIOVANNI Romero RN - 08/30/2018 14:46 EDT Anticipated Discharge Needs Discharge To, Anticipated : Rehabilitation unit/facility GIOVANNI GANDHI RN - 08/30/2018 14:46 EDT Education Topics, Admission Orientation DCP GENERIC CODE Advance Directives : Verbalizes understanding Allergy Band Applied : Verbalizes understanding Assessment/Vital Signs : Verbalizes understanding Bed Control : Verbalizes understanding Call Light : Verbalizes understanding Confidentiality : Verbalizes understanding Diet/Room Service : Verbalizes understanding Fall Prevention : Verbalizes understanding Hand Hygiene : Verbalizes understanding Healthcare Provider Visit : Verbalizes understanding ID Band Applied : Verbalizes understanding Isolation Precautions : Verbalizes understanding Orientation to Room/Bathroom : Verbalizes understanding Patient Bill of Rights : Verbalizes understanding Patient Rights/Responsibilities : Verbalizes understanding Patient Safety : Verbalizes understanding Personal Privacy Code : Verbalizes understanding Rapid Response Initiated by Patient/Family : Verbalizes understanding Rounding : Verbalizes understanding Siderails use/risks : Verbalizes understanding Skin Precautions : Verbalizes understanding Smoking Policy : Verbalizes understanding Telemetry Monitoring : Verbalizes understanding Television/Phone : Verbalizes understanding Visiting Policy : Verbalizes understanding GIOVANNI GANDHI RN - 08/30/2018 14:46 EDT Functional Assessment Living Situation : Home Patient Lives With : Spouse Persons Assisting Patient at Home : Spouse Current Daily Living Assistance : None Sensory Deficits : None Mobility Assistance Prior to Admission : Non-Ambulatory [place] Hx Falls Immediate/Within 3 Months : No Current Home Treatments : GIOVANNI Romero RN - 08/30/2018 14:46 EDT General Info Want Family/Rep/Phys Notified of Admit : No Emergency Contact #1 : Mauricio Blair Emergency Contact #1 Emergency Contact #1 Relationship : Spouse Emergency Contact #2 : n/a Emergency Contact #2 Phone Number : n/a Emergency Contact #2 Relationship : n/a Information Obtained From : Patient Primary Language : Barbadian Preferred Communication Mode : Verbal Communication Barrier : GIOVANNI Romero RN - 08/30/2018 14:46 EDT Fall Risk Scales ABCs Fall Injury Risk Identification : Bones, Surgery ABC Fall Injury Risk : Moderate to high injury risk Injury Moderate to High Risk Interventions : Bed alarm on, Chair alarm on, Fall contract/letter per facility policy, Patient room close to nurses station, Specialty low bed, Supervise toileting as indicated, Transport methods appropriate to patient, Wrist band (fall risk) on per policy METCALF Hx Falls Immediate/Within 3 Months : No [place] Secondary Diagnosis : Yes [place]F Use of Ambulatory Aid : Bed rest/Nurse assist [place] IV Therapy or IV Access : Yes [place] Gait/Transferring : Impaired [place] Mental Status : Oriented to own ability [place] Fall Risk Score : 55 [place] Fall Scale Risk Level : 46 or > High Risk [place] Fall Interventions : Adequate lighting, Assistive devices within reach, Bed in low position, Call device within reach, Fall prevention handout/education per facility policy, Frequent orientation to call device, Frequent orientation to surroundings, Hourly comfort/safety rounds, Non-slip footwear, Personal items within reach, Reinforced to call for assistance before getting out of bed, Room free of clutter/spills, Upper side-rails up, Wheels locked, Wires/Cords secured Fall Risk Scale Calc Temp : 0 GIOVANNI GANDHI RN - 08/30/2018 14:46 EDT Health Histories Smoking Status : Never (less than 100 in lifetime; none in last 30 days) Smokeless Tobacco Status : Never GIOVANNI GANDHI RN - 08/30/2018 14:46 EDT Social History (As Of: 08/30/2018 14:59:34 EDT) Tobacco: Never (less than 100 in lifetime) Smoking Status. Never Smokeless Tobacco Status. (Last Updated: 06/23/2018 15:46:55 EDT by RASHEL BARRAZA, RN) Alcohol: Alcohol Use History No. (Last Updated: 06/23/2018 15:46:55 EDT by RASHEL BARRAZA, RN) Substance Abuse: Drug Use Hx: No. (Last Updated: 06/23/2018 15:46:55 EDT by RASHEL BARRAZA, RN) Height and Weight, Clinical Dosing Weight Entry Format : [place] Clinical Dosing Weight : 122.73 kg Weight, Pounds : 270 lb Body Surface Area (BSA) : 2.27 m2 Body Mass Index : 43.7 kg/m2 (>HHI) GIOVANNI GANDHI RN - 08/30/2018 17:01 EDT Height Source : Measured Height Entry Format : [place] Height, Feet : 5 ft(Converted to: 152 cm, 60 Inch) Height, Inches : 6 Inch(Converted to: 0 ft 6 Inch, 15.24 cm) Clinical Height : 167.64 cm GIOVANNI GANDHI RN - 08/30/2018 14:46 EDT Weight Source : Bed scale GIOVANNI GANDHI RN - 08/30/2018 17:01 EDT [place] Body Weight : 59 kg GIOVANNI GANDHI RN - 08/30/2018 14:46 EDT Estimated Weight GIOVANNI GANDHI RN - 08/30/2018 17:01 EDT GIOVANNI GANDHI RN - 08/30/2018 14:46 EDT GIOVANNI GANDHI RN - 08/30/2018 17:01 EDT Infectious Disease History Infectious Disease History : Chicken pox/Shingles, Influenza, Measles, Mononucleosis, MRSA, Mumps Isolation Needed : Contact Fever/Chills Last 48 Hours : Yes Experiencing Infectious Disease Symptoms : Severe headache, Weakness, Diarrhea, Cough Travel To Regions with Travel Advisories : No Travel Outside [place] Within Last 30 Days : No Contact With Traveler to Advisory Region : No Tuberculosis Symptoms : None GIOVANNI GANDHI RN - 08/30/2018 14:46 EDT Tetanus Immunization Status Previous Tetanus Immunizations : No qualifying data available. Tetanus Immunization : Less than 5 years GIOVANNI GANDHI RN - 08/30/2018 14:46 EDT Influenza Vaccine Asmt, Adult Previous Vaccines from Immunization Schedule : No qualifying data available. Influenza Immunization, Current Season : Outside of influenza season GIOVANNI GANDHI RN - 08/30/2018 14:46 EDT Pneumococcal Vaccine Previous Vaccines from Immunization Schedule : No qualifying data available. Pneumonia Immunization Received : No Pneumococcal Risk Assessment < Age 65 : None GIOVANNI GANDHI RN - 08/30/2018 14:46 EDT Order Details Transport Mode Order Detail : Bed (including specialty) Isolation Precautions Order Detail : Contact precautions Order Detail : 0 IV Order Detail : 1 Oxygen Order Detail : 0 Nurse Collect Order Detail : 0 Lift/Transfer : Maximal assist Central Line Order Detail : No Room Service : Appropriate Arterial Line : No GIOVANNI GANDHI RN - 08/30/2018 14:46 EDT Nutrition History Feeding Ability : Independent Adaptive Feeding Equipment : None Adaptive Feeding Equipment : Regular Oral Medication Administration : By mouth Eating Poorly Due to Decreased Appetite : Yes Unplanned Weight Loss in Past 3-6 Months : Unsure Unplanned Weight Loss Amount : Unsure Malnutrition Screening Tool Total(mal) : 5 Malnutrition Screening Tool Risk Level : Patient at risk GIOVANNI GANDHI RN - 08/30/2018 14:46 EDT Psychosocial History Does Someone Depend on You for Care? : No Chronic/Terminal Illness w/Freq Visits : No Do You Have a History of the Following? : Patient denies history Currently in Unsafe Situation : No Restraining Order Against Another Person : No Do You Have a Support System? : Yes Hospital/DC Financial Concerns : No Stressors Affecting Hospitalization/DC : No Tried to Harm Yourself in the Past? : No Thoughts of Harming/Killing Yourself : No GIOVANNI GANDHI RN - 08/30/2018 14:46 EDT Sleep Apnea Risk Assmt Hx of [...] Sleep Apnea Risk Level Score : 6 GIOVANNI GANDHI RN - 08/30/2018 14:46 EDT Spiritual/Cultural Needs Significant Loss/Crisis in Past 3 Years : No Significant Distress/Coping/Need Support : No Any Spiritual/Cultural Needs or Requests : No Hoahaoism Preference : Pentecostalism GIOVANNI GANDHI RN - 08/30/2018 14:46 EDT Valuables and Belongings Valuables and Belongings : No clothing, No jewelry, No personal devices, No personal items, No assistive devices, No respiratory devices, No medications GIOVANNI GANDIH RN - 08/30/2018 14:46 EDT documented in this encounter Plan of Treatment Not on file documented as of this encounter Visit Diagnoses Not on filedocumented in this encounter Care Teams Jig Maker Relationship Specialty Start Date End Date Juan José Kendall MD [address] [place] [address] PCP - General Family Medicine 12/25/22 Juan José Kendall MD [address] [facility] [address] [place] [address] Referring Physician Family Medicine 12/25/22 documented as of this encounter
--- OUTSIDE RECORDS SUMMARY | 2024-03-11 09:24 | XMS_ITS | Encounter Summary ---
Author Organization [employer] Address [address] [place] [address] Care Team Providers Care Behavioral Scientist Name Role Phone Juan José Kendall MD Primary Care Provider +- [phone] Juan José Kendall MD Unavailable [phone] Encounter Details Date Type Department Care Team (Late st Contact Info) Description 06/28/2018 Transcribed Document [facility] [place] [address] ProviderLaurie MD [address] [place] [id number] Social History Tobacco Use Types Packs/Day Years Used Date Smoking Tobacco: Never Assessed Comments Unknown Sex and Gender Information Value Date Recorded Sex Assigned at Not on file Legal Sex Female 2:23 PM CDT Gender Identity Not on file Sexual Orientation Not on file documented as of this encounter Miscellaneous Notes * Cerner Conversion Note - Laurie ProviderMD - 06/28/2018 9:00 AM CDT Pain Assessment Entered On: 06/28/2018 11:17 EDT Performed On: 06/28/2018 9:35 EDT by Janae Alonso Rn Intervention Information: acetaminophen Performed by Janae Alonso Rn on 06/28/2018 08:35:00 EDT acetaminophen,500mg Oral Pain Assessment Pain Assessment [...] on filedocumented in this encounter Care Teams Behavioral Scientist Relationship Specialty Start Date End Date Juan José Kendall MD [address] [facility] [address] [place] [address] PCP - General Family Medicine 12/25/22 Juan José Kendall MD [address] [facility] [address] [place] [address] Referring Physician Family Medicine 12/25/22 documented as of this encounter
--- OUTSIDE RECORDS SUMMARY | 2024-03-11 09:24 | XMS_ITS | Encounter Summary ---
Author Organization [employer] Address [address] [place] [address] Care Team Providers Care Cryptologic Linguist Name Role Phone Unavailable Primary Care Provider Unavailabl e Encounter Details Date Type Department Care Team (Late st Contact Info) Description 06/28/2018 Historic Encounter [facility] Radiology [address] [place] [address] Irina Grande MD [facility] [place] [address] Social History Tobacco Use Types Packs/Day Years [...] Procedure Name Priority Date/Time Associated Diagnosis Comments XR KNEE 1 OR 2 VIEWS LEFT Routine 06/28/2018 5:15 PM EDT documented in this encounter Results * XR knee 1 or 2 views left (06/28/2018 5:15 PM EDT) Anatomical Region Laterality Modality Thigh, Knee, Leg X-Ray 06/28/2018 5:15 PM EDT Narrative 06/28/2018 9:56 PM EDT LEFT KNEE SERIES HISTORY: Left knee pain. Recent surgery. FINDINGS: ??A two view exam demonstrates surgical changes of arthroplasty. The hardware has a normal appearance. There is a screw in the proximal tibia, which is likely related to previous patellar tendon repair. There is lucency within the anterior cortex of the tibia which is also likely due to prior tendon repair. IMPRESSION: Surgical changes of arthroplasty without hardware complication. Images reviewed, interpreted, and dictated by Dr. Irina Grande. Transcribed by Srinivas Skinner PA-C, RAnatoliyT. (N), C N M T. I have personally viewed, interpreted and dictated the examination. I have read and agree with the above final transcribed report. Procedure Note Irina Grande MD - 07/21/2022 LEFT KNEE SERIES HISTORY: Left knee pain. Recent surgery. FINDINGS: A two view exam demonstrates surgical changes of arthroplasty. The hardware has a normal appearance. There is a screw in the proximal tibia, which is likely related to previous patellar tendon repair. There is lucency within the anterior cortex of the tibia which is also likely due to prior tendon repair. IMPRESSION: Surgical changes of arthroplasty without hardware complication. Images reviewed, interpreted, and dictated by Dr. Irina Grande. Transcribed by Srinivas Skinner PA-C, R.T. (N), C N M T. I have personally viewed, interpreted and dictated the examination. I have read and agree with the above final transcribed report. Irina Grande MD IMG DIAGNOSTIC IMAGING ORDERABL ES Final Result documented in this encounter Visit Diagnoses Not on filedocumented in this encounter
--- OUTSIDE RECORDS SUMMARY | 2024-03-11 09:24 | XMS_ITS | Encounter Summary ---
Author Organization [employer] Address [address] [place] [address] Care Team Providers Care Tubing Oiler Name Role Phone Juan José Kendall MD Primary Care Provider +- [phone] Juan José Kendall MD Unavailable [phone] Encounter Details Date Type Department Care Team (Late st Contact Info) Description 08/30/2018 Transcribed Document [facility] [place] [facility] [place] [address] ProviderLaurie MD [address] [place] [id number] Social History Tobacco Use Types Packs/Day Years Used Date Smoking Tobacco: Never Assessed Comments Unknown Sex and Gender Information Value Date Recorded Sex Assigned at Not on file Legal Sex Female 2:23 PM CDT Gender Identity Not on file Sexual Orientation Not on file documented as of this encounter Miscellaneous Notes * Cerner Conversion Note - Historical ProviderMD - 08/30/2018 5:02 PM CDT Nutrition Assessment Entered On: 08/31/2018 11:22 EDT Performed On: 08/31/2018 15:28 EDT by Isabel Espinoza, RD, LD Nutrition Assessment Current Nutrition Regimen Comment : (08/31) RD consult rec'd for BMI >40 and for reported wt loss of unsure amount with decrease in appetite (MST=5). Pt was gone to surgery at time of visit. Per charted wt hx pt has gained 5#. Unable to assess for PCM at this time, will attempt at follow up. Dx: sepsis, left prosthetic knee infection, PILY, MRSA septicemia, infected left left wound, UTI PMH: GERD, high cholesterol, HTN Labs: BUN 32, Cr 2.32 Alb 1.4 Meds: abx, colace, protonix, statin, IVF Skin: no breakdown noted, 2-3+ edema GI: LBM 08/29, active BS Diet: NPO Ht: 66 Wt: 270# Wt Hx: 265# (06/23) BMI: 43.5 IBW/%IBW: 130#/208% Isabel Espinoza RD, - 08/31/2018 15:23 EDT Nutrition Assessment Reason : Automatic referral Isabel Espinoza RD, - 08/31/2018 11:21 EDT Nutrition Diagnoses Weight : Unintended weight loss Weight Related to : decreased appetite; lifestyle Weight As Evidenced by : reported unsure wt loss per MST; BMI 43.5-admission Weight Status : Active Isabel Espinoza RD [facility] 08/31/2018 15:23 EDT Nutrition Interventions Meals and Snacks : Fat-modified diet, Cholesterol-modified diet, Sodium modified diet Nutrition Supplement Therapy : Commercial beverage Isabel Espinoza RD - 08/31/2018 15:23 EDT Monitoring/Evaluation Energy Intake : Total energy intake Food Intake : Amount of food Protein Intake : Total protein Isabel Espinoza RD - 08/31/2018 15:23 EDT Nutrition Recommendations Dietitian Recommendations : 1. As medically able, recommend cardaic diet. RD will monitor for need of supplements. goal: po intake >50% from meals 2. Monitor wt 2x/wk goal: no significant involuntary changes in wt Nutritional Risk: high Isabel Espinoza RD, - 08/31/2018 15:23 EDT documented in this encounter Plan of Treatment Not on file documented as of this encounter Visit Diagnoses Not on filedocumented in this encounter Care Teams Tubing Oiler Relationship Specialty Start Date End Date Juan José Kendall MD [address] [facility] [address] [place] [address] PCP - General Family Medicine 12/25/22 Juan José Kendall MD [address] [place] [address] Referring Physician Family Medicine 12/25/22 documented as of this encounter
--- OUTSIDE RECORDS SUMMARY | 2024-03-11 09:24 | XMS_ITS | Encounter Summary ---
Author Organization [employer] Address [address] [place] [address] Care Team Providers Care Group Home Counselor Name Role Phone Romulo Kendall MD Primary Care Provider +- [phone] Romulo Kendall MD Unavailable [phone] Encounter Details Date Type Department Care Team (Late st Contact Info) Description 06/28/2018 Transcribed Document [facility] [place] [facility] [place] [address] ProviderLaurie MD [address] [place] [id number] Social History Tobacco Use Types Packs/Day Years Used Date Smoking Tobacco: Never Assessed Comments Unknown Sex and Gender Information Value Date Recorded Sex Assigned at Not on file Legal Sex Female 2:23 PM CDT Gender Identity Not on file Sexual Orientation Not on file documented as of this encounter Miscellaneous Notes * Cerner Conversion Note - Laurie ProviderMD - 06/28/2018 12:19 PM CDT [place] [address], [place] [address] Patient Copy Patient Information: Name: TRUDI BLAIR Current Date: 06/28/2018 12:19:38 : 1955 Patient Address: [address] [place] [id number] Patient Attending Physician: JONES HIDALGO MD-INT Primary Care Provider: ROMULO KENDALL MD Primary Care Provider Discharge Diagnosis: Weight on Admission: 265 lb, 0 oz Comment: Follow-up Instructions: With: Address: When: JONG SANTACRUZ [facility], [address] [address] [employer] (1) 1:00 PM Comments: Appointment has been made Discharge Instructions: Medical Equipment for Home Use: PT HAS A WALKER AND BSC Home Health Services: PT WILL SEE SURGEON AT POST OP APPOINTMENT AND HAVE THERAPY SCHEDULED WHEN APPROPRIATE Immunizations Documented During Stay: No Immunizations Found Heart Failure Discharge Instructions (if any): Stroke Related Discharge Instructions (if any): Warfarin Related Discharge Instructions (if any): Final Medication List: Other Medications baclofen (baclofen 10 mg oral tablet) 1 Tablet(s) Oral Every Morning. 1 tab in am, 2 in pm. baclofen (baclofen 10 mg oral tablet) 2 Tablet(s) Oral At Bedtime as needed Spasms. celecoxib 200 Milligram(s) Oral Every Day. gabapentin [...] Barley. Bulgur wheat. Millet. Bran muffins. Popcorn. [place] wafer crackers. ?? Vegetables Sweet potatoes. Spinach. Kale. Artichokes. Cabbage. Broccoli. Green peas. Carrots. Squash. ?? Fruits Berries. Pears. Apples. Oranges. Avocados. Prunes and raisins. Dried figs. ?? Meats and Other Protein Sources Buchanan, kidney, saxena, and soy beans. Split peas. [...] henry has 11 g of protein. ?? Yuma seeds ??? 1 oz has 5.5 g [...] floor. ?? Place frequently used items in momy-ob-hrhkl places ?? Keep electrical cables out of [...] ? Using the bathroom. ? Using household human geography faculty member or toxic chemicals. ? Touching or taking [...] may report side effects to FDA at 0-884-FOI-1360. What other drugs will affect acetaminophen and [...] affect acetaminophen and oxycodone, including prescription and vrmb-lta-kyftyzo medicines, vitamins, and herbal products. Not all [...] to ensure that the information provided by [employer]. ('[employer]') is accurate, up-to-date, and complete, but no guarantee is made to that effect. Drug information contained herein may be time sensitive. [employer] information has been compiled for use by healthcare practitioners and consumers in the [place] and therefore [employer] does not warrant that uses outside of the [place] are appropriate, unless specifically indicated otherwise. [employer] drug information does not endorse drugs, diagnose patients or recommend therapy. [employer] drug information is an informational resource designed [...] effective or appropriate for any given patient. [employer] does not assume any responsibility for any aspect of healthcare administered with the aid of information [employer] provides. The information contained herein is not intended to cover all possible uses, directions, precautions, warnings, drug interactions, allergic reactions, or adverse effects. If you have questions about the drugs you are taking, check with your doctor, nurse or pharmacist. Copyright 2853-1079 [employer]. Version: 18.02. Revision Date: 03/02/2018. CIGARETTE SMOKING: The facts are clear, cigarette smoking will shorten your life. Smoking can cause many illnesses along the way. As a healthcare provider, we recommend that you stop smoking. Assistance with quitting is available by contacting 6-996-YKJD-NOW. This is a free resource providing counseling, [...] Be sure to sign up for the [facility] patient portal, which gives you 26/10 access to your medical information ??? including these discharge instructions ??? using your computer, smartphone, or tablet. Just go to [employer] to get started. Questions? Call . [facility] would like to thank you for allowing us to assist you with your healthcare needs. BAIRON Beltran SANDRA K, (or event representative) have received the above patient education materials/instructions and have verbalized understanding: Patient Signature _ Date/Time Patient Full Charge Bookkeeper Signature (if needed) Date/Time Clinician/Hospital Full Charge Bookkeeper Signature (if needed) Date/Time Electronically signed by Aleks, [facility] Conversion Stove Carriage Operator Cerner at 07/24/2022 3:45 PM CDT documented in this encounter Plan of Treatment Not on file documented as of this encounter Visit Diagnoses Not on filedocumented in this encounter Care Teams Group Home Counselor Relationship Specialty Start Date End Date Romulo Kendall MD [address] [place] [address] PCP - General Family Medicine 12/25/22 Romulo Kendall MD [address] [place] [address] Referring Physician Family Medicine 12/25/22 documented as of this encounter
--- OUTSIDE RECORDS SUMMARY | 2024-03-11 09:24 | XMS_ITS | Encounter Summary ---
Author Organization [employer] Address [address] [place] [address] Care Team Providers Care Head Of Sales Promotion Name Role Phone Juan José Kendall MD Primary Care Provider + [phone] Juan José Kendall MD Unavailable [phone] Encounter Details Date Type Department Care Team (Late st Contact Info) Description 06/28/2018 Transcribed Document [facility] [place] [address] [place] [address] ProviderLaurie MD [address] [place] [address] Social History Tobacco Use Types Packs/Day Years Used Date Smoking Tobacco: Never Assessed Comments Unknown Sex and Gender Information Value Date Recorded Sex Assigned at Not on file Legal Sex Female 2:23 PM CDT Gender Identity Not on file Sexual Orientation Not on file documented as of this encounter Miscellaneous Notes * Cerner Conversion Note - Historical ProviderMD - 06/28/2018 5:00 AM CDT Chart Check - Review Order Profile Entered On: 06/28/2018 4:48 EDT Performed On: 06/28/2018 5:00 EDT by Steph Avendaño RN Chart Check Chart Reviewed Date and Time : 06/28/2018 4:48 EDT Powerplans Initiated/Discontinued as Appropriate : Yes All Active Orders Reviewed : Yes Steph Avendaño RN - 06/28/2018 4:48 EDT documented in this encounter Plan of Treatment Not on file documented as of this encounter Visit Diagnoses Not on filedocumented in this encounter Care Teams Head Of Sales Promotion Relationship Specialty Start Date End Date Juan José Kendall MD [address] [place] [id number] PCP - General Family Medicine 12/25/22 Juan José Kendall MD [address] [facility] [address] [place] [address] Referring Physician Family Medicine 12/25/22 documented as of this encounter
--- OUTSIDE RECORDS SUMMARY | 2024-03-11 09:24 | XMS_ITS | Encounter Summary ---
Author Organization [employer] Init i[employer] Address [address] [facility] [place] [address] Care Team Providers Care Software Engineer Web Applications Name Role Phone Unavailable Primary Care Provider Unavailabl e Encounter Details Date Type Department Care Team (Late st Contact Info) Description 08/31/2018 Historic Encounter [facility] Radiology [address] [place] [address] Eris Bose MD [address] [place] [phone] Social History Tobacco Use Types Packs/Day Years [...] Procedure Name Priority Date/Time Associated Diagnosis Comments VANCOMYCIN LEVEL TROUGH ([facility] BKR DATA CONV) Routine 09/30/2018 9:40 AM EDT BMP BASIC METABOLIC PANEL ([facility] BKR DATA CONV) Routine 09/30/2018 5:05 AM EDT PLATELET COUNT Routine 09/30/2018 5:05 AM EDT CBC W/ AUTO DIFF ([facility] BKR DATA CONV) Routine 09/29/2018 4:38 AM EDT AUTOMATED DIFFERENTIAL ([facility] BKR DATA CONV) Routine 09/29/2018 4:38 AM EDT CMP COMPREHENSIVE METABOLIC PANEL ([facility] BKR DATA CONV) Routine 09/29/2018 4:38 AM EDT BMP BASIC METABOLIC PANEL ([facility] BKR DATA CONV) Routine 09/28/2018 5:41 AM EDT PLATELET COUNT Routine 09/28/2018 5:41 AM EDT BMP BASIC METABOLIC PANEL ([facility] BKR DATA CONV) Routine 09/27/2018 5:19 AM EDT VANCOMYCIN LEVEL TROUGH ([facility] DATA CONV) Routine 09/26/2018 8:30 AM EDT CRP C-REACTIVE PROTEIN ([facility] BKR DATA CONV) Routine 09/26/2018 5:56 AM EDT ESR SEDIMENTATION RATE AUTO ([facility] BKR DATA CONV) Routine 09/26/2018 5:56 AM EDT CBC W/ AUTO DIFF ([facility] BKR DATA CONV) Routine 09/26/2018 5:56 AM EDT AUTOMATED DIFFERENTIAL ([facility] BKR DATA CONV) Routine 09/26/2018 5:56 AM EDT CMP COMPREHENSIVE METABOLIC PANEL ([facility] BKR DATA CONV) Routine 09/26/2018 5:56 AM EDT BMP BASIC METABOLIC PANEL ([facility] BKR DATA CONV) Routine 09/25/2018 6:30 AM EDT BMP BASIC METABOLIC PANEL ([facility] BKR DATA CONV) Routine 09/24/2018 6:35 AM EDT VANCOMYCIN,RANDOM Routine 09/24/2018 6:3 5 AM EDT PLATELET COUNT Routine 09/24/2018 6:35 AM EDT BMP BASIC METABOLIC PANEL ([facility] BKR DATA CONV) Routine 09/23/2018 6:08 AM EDT LIPASE Routine 09/23/2018 6:08 AM EDT VANCOMYCIN,RANDOM Routine 09/23/2018 6:0 8 AM EDT BMP BASIC METABOLIC PANEL ([facility] BKR DATA CONV) Routine 09/22/2018 4:50 AM EDT VANCOMYCIN,RANDOM Routine 09/22/2018 4:5 0 AM EDT PLATELET COUNT Routine 09/22/2018 4:50 AM EDT VANCOMYCIN LEVEL TROUGH ([facility] DATA CONV) Routine 09/21/2018 4:11 PM EDT BMP BASIC METABOLIC PANEL ([facility] BKR DATA CONV) Routine 09/21/2018 5:20 AM EDT BMP BASIC METABOLIC PANEL ([facility] BKR DATA CONV) Routine 09/20/2018 5:46 AM EDT PLATELET COUNT Routine 09/20/2018 5:46 AM EDT CRP C-REACTIVE PROTEIN ([facility] BKR DATA CONV) Routine 09/19/2018 5:26 AM EDT ESR SEDIMENTATION RATE AUTO ([facility] DATA CONV) Routine 09/19/2018 5:26 AM EDT CBC W/ AUTO DIFF ([facility] DATA CONV) Routine 09/19/2018 5:26 AM EDT AUTOMATED DIFFERENTIAL ([facility] DATA CONV) Routine 09/19/2018 5:26 AM EDT MAGNESIUM LEVEL ([facility] DATA CONV) Routine 09/19/2018 5:26 AM EDT CMP COMPREHENSIVE METABOLIC PANEL ([facility] DATA CONV) Routine 09/19/2018 5:26 AM EDT PREALBUMIN, SERUM(SENDOUT) Routine 09/19/2018 5:26 AM EDT PHOSPHORUS Routine 09/19/2018 5:26 AM EDT BMP BASIC METABOLIC PANEL ([facility] BKR DATA CONV) Routine 09/18/2018 4:29 AM EDT PLATELET COUNT Routine 09/18/2018 4:29 AM EDT VANCOMYCIN LEVEL TROUGH ([facility] BKR DATA CONV) Routine 09/17/2018 3:12 PM EDT BMP BASIC METABOLIC PANEL ([facility] BKR DATA CONV) Routine 09/17/2018 4:32 AM EDT CBC W/ AUTO DIFF ([facility] BKR DATA CONV) Routine 09/16/2018 5:29 AM EDT AUTOMATED DIFFERENTIAL ([facility] DATA CONV) Routine 09/16/2018 5:29 AM EDT CMP COMPREHENSIVE METABOLIC PANEL ([facility] BKR DATA CONV) Routine 09/16/2018 5:29 AM EDT CK CREATINE KINASE ([facility] BKR DATA CONV) Routine 09/15/2018 4:36 AM EDT BMP BASIC METABOLIC PANEL ([facility] BKR DATA CONV) Routine 09/15/2018 4:36 AM EDT BMP BASIC METABOLIC PANEL ([facility] BKR DATA CONV) Routine 09/14/2018 4:08 AM EDT PLATELET COUNT Routine 09/14/2018 4:08 AM EDT BMP BASIC METABOLIC PANEL ([facility] BKR DATA CONV) Routine 09/13/2018 5:22 AM EDT CRP C-REACTIVE PROTEIN ([facility] BKR DATA CONV) Routine 09/12/2018 5:02 AM EDT ESR SEDIMENTATION RATE AUTO ([facility] BKR DATA CONV) Routine 09/12/2018 5:02 AM EDT CBC W/ AUTO DIFF ([facility] BKR DATA CONV) Routine 09/12/2018 5:02 AM EDT AUTOMATED DIFFERENTIAL ([facility] BKR DATA CONV) Routine 09/12/2018 5:02 AM EDT CMP COMPREHENSIVE METABOLIC PANEL ([facility] BKR DATA CONV) Routine 09/12/2018 5:02 AM EDT PREALBUMIN, SERUM(SENDOUT) Routine 09/12/2018 5:02 AM EDT BMP BASIC METABOLIC PANEL ([facility] BKR DATA CONV) Routine 09/11/2018 4:12 AM EDT PLATELET COUNT Routine 09/10/2018 8:00 PM EDT BMP BASIC METABOLIC PANEL ([facility] BKR DATA CONV) Routine 09/10/2018 4:55 AM EDT CBC W/ AUTO DIFF ([facility] BKR DATA CONV) Routine 09/09/2018 4:51 AM EDT AUTOMATED DIFFERENTIAL ([facility] BKR DATA CONV) Routine 09/09/2018 4:51 AM EDT CMP COMPREHENSIVE METABOLIC PANEL ([facility] BKR DATA CONV) Routine 09/09/2018 4:51 AM EDT CBC W/ AUTO DIFF ([facility] BKR DATA CONV) Routine 09/08/2018 4:37 AM EDT AUTOMATED DIFFERENTIAL ([facility] BKR DATA CONV) Routine 09/08/2018 4:37 AM EDT MAGNESIUM LEVEL ([facility] DATA CONV) Routine 09/08/2018 4:37 AM EDT RENAL FUNCTION PANEL Routine 09/08/2018 4:37 AM EDT CBC W/ AUTO DIFF ([facility] BKR DATA CONV) Routine 09/07/2018 4:43 AM EDT AUTOMATED DIFFERENTIAL ([facility] DATA CONV) Routine 09/07/2018 4:43 AM EDT CMP COMPREHENSIVE METABOLIC PANEL ([facility] DATA CONV) Routine 09/07/2018 4:43 AM EDT CBC W/ AUTO DIFF ([facility] DATA CONV) Routine 09/06/2018 5:39 AM EDT AUTOMATED DIFFERENTIAL ([facility] BKR DATA CONV) Routine 09/06/2018 5:39 AM EDT CMP COMPREHENSIVE METABOLIC PANEL ([facility] BKR DATA CONV) Routine 09/06/2018 5:39 AM EDT POTASSIUM, SERUM Routine 09/05/2018 8:39 AM EDT CK CREATINE KINASE ([facility] DATA CONV) Routine 09/05/2018 6:05 AM EDT CRP C-REACTIVE PROTEIN ([facility] DATA CONV) Routine 09/05/2018 4:22 AM EDT ESR SEDIMENTATION RATE AUTO ([facility] DATA CONV) Routine 09/05/2018 4:22 AM EDT CBC W/ AUTO DIFF ([facility] BKR DATA CONV) Routine 09/05/2018 4:22 AM EDT AUTOMATED DIFFERENTIAL ([facility] BKR DATA CONV) Routine 09/05/2018 4:22 AM EDT MAGNESIUM LEVEL ([facility] DATA CONV) Routine 09/05/2018 4:22 AM EDT CMP COMPREHENSIVE METABOLIC PANEL ([facility] BKR DATA CONV) Routine 09/05/2018 4:22 AM EDT PHOSPHORUS Routine 09/05/2018 4:22 AM EDT POTASSIUM, SERUM Routine 09/04/2018 9:31 PM EDT CBC W/ AUTO DIFF ([facility] BKR DATA CONV) Routine 09/04/2018 3:54 AM EDT AUTOMATED DIFFERENTIAL ([facility] BKR DATA CONV) Routine 09/04/2018 3:54 AM EDT CMP COMPREHENSIVE METABOLIC PANEL ([facility] BKR DATA CONV) Routine 09/04/2018 3:54 AM EDT CBC W/ AUTO DIFF ([facility] BKR DATA CONV) Routine 09/03/2018 6:35 AM EDT AUTOMATED DIFFERENTIAL ([facility] BKR DATA CONV) Routine 09/03/2018 6:35 AM EDT CMP COMPREHENSIVE METABOLIC PANEL ([facility] BKR DATA CONV) Routine 09/03/2018 6:35 AM EDT RETICULOCYTE COUNT Routine 09/02/2018 10 :17 PM EDT IRON AND TIBC Routine 09/02/2018 10:15 PM EDT TSH Routine 09/02/2018 10:15 PM EDT FOLATE,SERUM Routine 09/02/2018 10:15 PM EDT VITAMIN B12 Routine 09/02/2018 10:15 PM EDT FERRITIN Routine 09/02/2018 10:15 PM EDT HEMOGLOBIN AND HEMATOCRIT Routine 09/02/2018 8:51 PM EDT RED BLOOD CELL PRODUCT ORDER ([facility] BKR DATA CONV) Routine 09/02/2018 8:38 PM EDT HEMOGLOBIN AND HEMATOCRIT Routine 09/02/2018 7:11 PM EDT RED BLOOD CELL PRODUCT ORDER ([facility] BKR DATA CONV) Routine 09/02/2018 8:33 AM EDT HEMOGLOBIN AND HEMATOCRIT Routine 09/02/2018 6:49 AM EDT BMP BASIC METABOLIC PANEL ([facility] BKR DATA CONV) Routine 09/02/2018 4:15 AM EDT CBC W/ AUTO DIFF ([facility] BKR DATA CONV) Routine 09/01/2018 4:10 AM EDT AUTOMATED DIFFERENTIAL ([facility] RV IDR DATA CONV) Routine 09/01/2018 4:10 AM EDT MAGNESIUM LEVEL ([facility] RV IDR DATA CONV) Routine 09/01/2018 4:10 AM EDT CMP COMPREHENSIVE METABOLIC PANEL ([facility] RV IDR DATA CONV) Routine 09/01/2018 4:10 AM EDT PHOSPHORUS Routine 09/01/2018 4:10 AM EDT CULTURE, WOUND ([facility] BKR DATA CONV) Routine 08/31/2018 10:28 PM EDT HEMOGLOBIN AND HEMATOCRIT Routine 08/31/2018 8:35 PM EDT XR KNEE 1 OR 2 VIEWS LEFT STAT 08/31/2018 6:41 PM EDT CULTURE, WOUND ([facility] BKR DATA CONV) Routine 08/31/2018 5:00 PM EDT RED BLOOD CELL PRODUCT ORDER ([facility] RV IDR DATA CONV) Routine 08/31/2018 4:57 PM EDT RED BLOOD CELL PRODUCT ORDER ([facility] BKR DATA CONV) Routine 08/31/2018 11:20 AM EDT ANTIBODY SCREEN ([place] BKR) Routine 08/31/2018 10:44 AM EDT ABO/RH ([place] BKR) Routine 08/31/2018 10:44 AM EDT CROSSMATCH Routine 08/31/2018 10:44 AM EDT US RENAL COMPLETE Routine 08/31/2018 8:5 2 AM EDT US LEG LEFT MAPPING FOR VARICOSE VEINS STAT 08/31/2018 8:38 AM EDT MAGNESIUM LEVEL ([facility] BKR DATA CONV) Routine 08/31/2018 7:16 AM EDT VITAMIN D, 25-HYDROXY(SENDOUT) Routine 08/31/2018 7:16 AM EDT PTH,INTACT Routine 08/31/2018 7:16 AM EDT PHOSPHORUS Routine 08/31/2018 7:16 AM EDT URIC ACID URINE RANDOM ([facility] BKR DATA CONV) Routine 08/31/2018 7:02 AM EDT EOSINOPHIL COUNT OTHER ([facility] DATA CONV) Routine 08/31/2018 7:02 AM EDT PROTEIN URINE RANDOM ([facility] DATA CONV) Routine 08/31/2018 7:02 AM EDT CREATININE URINE RANDOM ([facility]KR DATA CONV) Routine 08/31/2018 7:02 AM EDT SODIUM LEVEL URINE RANDOM ([facility] BKR DATA CONV) Routine 08/31/2018 7:02 AM EDT UREA NITROGEN, RANDOM URINE Routine 08/31/2018 7:02 AM EDT CBC W/ AUTO DIFF ([facility] DATA CONV) Routine 08/31/2018 5:45 AM EDT AUTOMATED DIFFERENTIAL ([facility] BKR DATA CONV) Routine 08/31/2018 5:45 AM EDT CMP COMPREHENSIVE METABOLIC PANEL ([facility] DATA CONV) Routine 08/31/2018 5:45 AM EDT ABO/RH CONFIRMATION/RETYPE ([place] BKR) Routine 08/31/2018 5:45 AM EDT URINALYSIS UA RFLX MICROSCOPIC CULT IF IND ([facility] BKR DATA CONV) Routine 08/31/2018 3:53 AM EDT URINALYSIS MICROSCOPIC ([facility] DATA CONV) Routine 08/31/2018 3:53 AM EDT documented in this encounter Results * VAN[facility]CIN L[facility] TROUGH [facility] (09/30/2018 9:40 AM EDT) Pathologist [facility] Vancomycin Trough 12.2 5.0 - 15.0 mcg/mL 09/30/2018 2:09 PM EDT Blood 09/30/2018 9:40 AM EDT 09/30/2018 1:40 PM EDT [facility] Historical Provider LAB BLOOD ORDERABLES Fi nal Result [facility] [address] [place] [address] * (ABNORMAL) BMP BASIC METABOLIC PANEL ([facility] BKR DATA CONV) (09/30/2018 5:05 AM EDT) Glucose Level 93 74 - 106 mg/dL 09/30/2018 9:27 AM EDT Comment: Xumii has become aware of sulfasalazine and sulfapyridine [...] administration of the drug. Blood Urea Nitrogen 21 7 - 22 mg/dL 09/30/2018 9:27 AM EDT Creatinine Level 1.20(H) 0.55 - 1.02 mg/dL 09/30/2018 9:27 AM EDT Sodium Level 145 136 - 146 mmol/L 09/30/2018 9:27 AM EDT Potassium Level 3.5 3.5 - 5.1 mmol/L 09/30/2018 9:27 AM EDT Chloride Level 113(H) 102 - 112 mmol/L 09/30/2018 9:27 AM EDT Carbon Dioxide Level 27 21 - 32 mmol/L 09/30/2018 9:27 AM EDT Anion Gap 8(L) 9 - 20 09/30/2018 9:27 AM EDT Calcium Level 8.6 8.4 - 10.1 mg/dL 09/30/2018 9:27 AM EDT Bun/Creatinine 17.5 8.0 - 20.0 09/30/2018 9:27 AM EDT eGFR NonAfrican 45(L) >=60 mL/min/1. 73m2 09/30/2018 9:33 AM EDT Comment: GFR <60 suggests chronic kidney disease, if found over 3 month period. GFR <15 indicates renal failure. eGFR 55(L) >=60 mL/min/1. 73m2 09/30/2018 9:33 AM EDT Comment: GFR <60 suggests chronic kidney disease, if found over 3 month period. GFR <15 indicates renal failure. Blood 09/30/2018 5:05 AM EDT 09/30/2018 9:18 AM EDT [facility] Historical Provider LAB BLOOD ORDERABLES Fi nal Result [facility] [address] [place] [id number], [facility] [phone] * Platelet count (09/30/2018 5:05 AM EDT) Platelet Count 182 163 - 369 K/uL 09/30/2018 9:12 AM EDT Blood 09/30/2018 5:05 AM EDT 09/30/2018 9:[address] [facility] Historical Provider LAB BLOOD ORDERABLES Fi nal Result [facility] [address] [place] [address], [facility] [phone] * (ABNORMAL) CMP COMPREHENSIVE METABOLIC PANEL ([facility] BKR DATA CONV) (09/29/2018 4:38 AM EDT) Sodium Level 144 136 - 146 mmol/L 09/29/2018 9:46 AM EDT Potassium Level 3.5 3.5 - 5.1 mmol/L 09/29/2018 9:46 AM EDT Chloride Level 112 102 - 112 mmol/L 09/29/2018 9:46 AM EDT Carbon Dioxide Level 26 21 - 32 mmol/L 09/29/2018 9:46 AM EDT Anion Gap 10 9 - 20 09/29/2018 9:46 AM EDT Calcium Level 8.8 8.4 - 10.1 mg/dL 09/29/2018 9:46 AM EDT Glucose Level 92 74 - 106 mg/dL 09/29/2018 9:46 AM EDT Comment: Xumii has become aware of sulfasalazine and sulfapyridine [...] administration of the drug. Blood Urea Nitrogen 22 7 - 22 mg/dL 09/29/2018 9:46 AM EDT Creatinine Level 1.20(H) 0.55 - 1.02 mg/dL 09/29/2018 9:46 AM EDT Bun/Creatinine 18.3 8.0 - 20.0 09/29/2018 9:46 AM EDT Albumin Level 2.3(L) 3.4 - 5.0 Gram/dL 09/29/2018 9:46 AM EDT Protein, Total 5.5(L) 6.4 - 8.2 Gram/dL 09/29/2018 9:46 AM EDT A/G Ratio 0.7(L) 1.1 - 2.5 09/29/2018 9:46 AM EDT Alk Phos 115 27 - 136 Units/Lit er 09/29/2018 9:46 AM EDT ALT 7(L) 13 - 56 Units/Lit er 09/29/2018 9:46 AM EDT Comment: Xumii has become aware of sulfasalazine and sulfapyridine [...] AST 12 5 - 37 Units/Lit er 09/29/2018 9:46 AM EDT Comment: Xumii has become aware of sulfasalazine and sulfapyridine [...] to administration of the drug. Bilirubin, Total 0.4 0.2 - 1.2 mg/dL 09/29/2018 9:46 AM EDT Globulin 3.2 1.5 - 4.5 Gram/dL 09/29/2018 9:46 AM EDT eGFR 55(L) >=60 mL/min/1. 73m2 09/29/2018 9:48 AM EDT Comment: GFR <60 suggests chronic kidney disease, if found over 3 month period. GFR <15 indicates renal failure. eGFR NonAfrican 45(L) >=60 mL/min/1. 73m2 09/29/2018 9:48 AM EDT Comment: GFR <60 suggests chronic kidney disease, if found over 3 month period. GFR <15 indicates renal failure. Blood 09/29/2018 4:38 AM EDT 09/29/2018 9:13 AM EDT [facility] Historical Provider LAB BLOOD ORDERABLES Fi nal Result [facility] [address] [phone] * (ABNORMAL) AUTOMATED DIFFERENTIAL ([facility] BKR DATA CONV) (09/29/2018 4:38 AM EDT) Neut% 63.8 34.0 - 71.0 % 09/29/2018 9:22 AM EDT Lymph% 17.9(L) 19.3 - 53.1 % 09/29/2018 9:22 AM EDT Gregg% 9.1(H) 3.0 - 9.0 % 09/29/2018 9:22 AM EDT Eos% 8.0(H) 0.0 - 7.0 % 09/29/2018 9:22 AM EDT Baso% 0.7 0.0 - 1.5 % 09/29/2018 9:22 AM EDT IG% 0.50 0.00 - 0.60 % 09/29/2018 9:22 AM EDT Neut# 3.93 1.56 - 6.13 K/uL 09/29/2018 9:22 AM EDT Lymph# 1.10 1.00 - 3.90 x10(3)/uL 09/29/2018 9:22 AM EDT Gregg# 0.56 0.16 - 1.00 K/uL 09/29/2018 9:22 AM EDT Eos# 0.49 0.00 - 0.80 x10(3)/uL 09/29/2018 9:22 AM EDT Baso# 0.04 0.00 - 0.20 x10(3)/uL 09/29/2018 9:22 AM EDT IG# 0.03 0.00 - 0.05 x10(3)/uL 09/29/2018 9:22 AM EDT Blood 09/29/2018 4:38 AM EDT 09/29/2018 9:13 AM EDT Narrative [facility] - 09/29/2018 9:30 AM EDT Added by Discern Expert [facility] Historical Provider LAB BLOOD ORDERABLES Fi nal Result [facility] [address] [phone] * (ABNORMAL) CBC W/ AUTO DIFF ([facility] BKR DATA CONV) (09/29/2018 4:38 AM EDT) Pathologist [facility] WBC 6.2 4.5 - 10.5 K/uL 09/29/2018 9:22 AM EDT RBC 2.81(L) 3.93 - 5.22 Million/uL 09/29/2018 9:22 AM EDT Hgb 8.7(L) 11.2 - 15.7 g/dL 09/29/2018 9:22 AM EDT Hct 26.8(L) 34.1 - 44.9 % 09/29/2018 9:22 AM EDT MCV 95.4(H) 79.0 - 94.8 fL 09/29/2018 9:22 AM EDT MCH 31.0 25.6 - 32.2 pg 09/29/2018 9:22 AM EDT MCHC 32.5 32.2 - 36.5 Gram/dL 09/29/2018 9:22 AM EDT RDW 17.3(H) 11.7 - 14.9 % 09/29/2018 9:22 AM EDT Platelet Count 182 163 - 369 K/uL 09/29/2018 9:22 AM EDT MPV 11.5 9.4 - 12.4 fL 09/29/2018 9:22 AM EDT Slide Review No 09/29/2018 9:30 AM EDT Blood 09/29/2018 4:38 AM EDT 09/29/2018 9:13 AM EDT [facility] Historical Provider LAB BLOOD ORDERABLES Fi nal Result [facility] [address] [phone] * (ABNORMAL) BMP BASIC METABOLIC PANEL ([facility] BKR DATA CONV) (09/28/2018 5:41 AM EDT) Glucose Level 90 74 - 106 mg/dL 09/28/2018 10:56 AM EDT Comment: Xumii has become aware of sulfasalazine and sulfapyridine [...] administration of the drug. Blood Urea Nitrogen 15 7 - 22 mg/dL 09/28/2018 10:56 AM EDT Creatinine Level 1.20(H) 0.55 - 1.02 mg/dL 09/28/2018 10:56 AM EDT Sodium Level 143 136 - 146 mmol/L 09/28/2018 10:56 AM EDT Potassium Level 3.4(L) 3.5 - 5.1 mmol/L 09/28/2018 10:56 AM EDT Chloride Level 113(H) 102 - 112 mmol/L 09/28/2018 10:56 AM EDT Carbon Dioxide Level 25 21 - 32 mmol/L 09/28/2018 10:56 AM EDT Anion Gap 8(L) 9 - 20 09/28/2018 10:56 AM EDT Calcium Level 8.4 8.4 - 10.1 mg/dL 09/28/2018 10:56 AM EDT Bun/Creatinine 12.5 8.0 - 20.0 09/28/2018 10:56 AM EDT eGFR NonAfrican 45(L) >=60 mL/min/1. 73m2 09/28/2018 10:56 AM EDT Comment: GFR <60 suggests chronic kidney disease, if found over 3 month period. GFR <15 indicates renal failure. eGFR 55(L) >=60 mL/min/1. 73m2 09/28/2018 10:56 AM EDT Comment: GFR <60 suggests chronic kidney disease, if found over 3 month period. GFR <15 indicates renal failure. Blood 09/28/2018 5:41 AM EDT 09/28/2018 10:37 AM EDT [facility] Historical Provider LAB BLOOD ORDERABLES Fi nal Result [facility] [address] [phone] * Platelet count (09/28/2018 5:41 AM EDT) Platelet Count 180 163 - 369 K/uL 09/28/2018 10:40 AM EDT Blood 09/28/2018 5:41 AM EDT 09/28/2018 10:[address] [facility] Historical Provider LAB BLOOD ORDERABLES Fi nal Result [facility] [address] [phone] * (ABNORMAL) BMP BASIC METABOLIC PANEL ([facility] BKR DATA CONV) (09/27/2018 5:19 AM EDT) Glucose Level 88 74 - 106 mg/dL 09/27/2018 11:08 AM EDT Comment: Xumii has become aware of sulfasalazine and sulfapyridine [...] Urea Nitrogen 16 7 - 22 mg/dL 09/27/2018 11:08 AM EDT Creatinine Level 1.20(H) 0.55 - 1.02 mg/dL 09/27/2018 11:08 AM EDT Sodium Level 144 136 - 146 mmol/L 09/27/2018 11:08 AM EDT Potassium Level 3.5 3.5 - 5.1 mmol/L 09/27/2018 11:08 AM EDT Chloride Level 114(H) 102 - 112 mmol/L 09/27/2018 11:08 AM EDT Carbon Dioxide Level 24 21 - 32 mmol/L 09/27/2018 11:08 AM EDT Anion Gap 10 9 - 20 09/27/2018 11:08 AM EDT Calcium Level 8.5 8.4 - 10.1 mg/dL 09/27/2018 11:08 AM EDT Bun/Creatinine 13.3 8.0 - 20.0 09/27/2018 11:08 AM EDT eGFR NonAfrican 45(L) >=60 mL/min/1. 73m2 09/27/2018 11:08 AM EDT Comment: GFR <60 suggests chronic kidney disease, if found over 3 month period. GFR <15 indicates renal failure. eGFR 55(L) >=60 mL/min/1. 73m2 09/27/2018 11:08 AM EDT Comment: GFR <60 suggests chronic kidney disease, if found over 3 month period. GFR <15 indicates renal failure. Blood 09/27/2018 5:19 AM EDT 09/27/2018 10:[address] [facility] Provider LAB BLOOD ORDERABLES Fi nal Result Performing Organization Address [facility]/ZIP Co de Phone Number [facility] [address] [place] [address] * VANCOMYCIN LEVEL TROUGH ([facility] BKR DATA CONV) (09/26/2018 8:30 AM EDT) Vancomycin Trough 14.6 5.0 - 15.0 mcg/mL 09/26/2018 1:27 PM EDT Blood 09/26/2018 8:30 AM EDT 09/26/2018 1:[address] [facility] Provider LAB BLOOD ORDERABLES Fi nal Result Performing Organization Address [facility] Co de Phone Number [facility] [address] [phone] * (ABNORMAL) AUTOMATED DIFFERENTIAL ([facility] BKR DATA CONV) (09/26/2018 5:56 AM EDT) Neut% 65.7 34.0 - 71.0 % 09/26/2018 10:37 AM EDT Lymph% 15.5(L) 19.3 - 53.1 % 09/26/2018 10:37 AM EDT Gregg% 10.0(H) 3.0 - 9.0 % 09/26/2018 10:37 AM EDT Eos% 7.4(H) 0.0 - 7.0 % 09/26/2018 10:37 AM EDT Baso% 0.9 0.0 - 1.5 % 09/26/2018 10:37 AM EDT IG% 0.50 0.00 - 0.60 % 09/26/2018 10:37 AM EDT Neut# 3.80 1.56 - 6.13 K/uL 09/26/2018 10:37 AM EDT Lymph# 0.90(L) 1.00 - 3.90 x10(3)/uL 09/26/2018 10:37 AM EDT Gregg# 0.58 0.16 - 1.00 K/uL 09/26/2018 10:37 AM EDT Eos# 0.43 0.00 - 0.80 x10(3)/uL 09/26/2018 10:37 AM EDT Baso# 0.05 0.00 - 0.20 x10(3)/uL 09/26/2018 10:37 AM EDT IG# 0.03 0.00 - 0.05 x10(3)/uL 09/26/2018 10:37 AM EDT Blood 09/26/2018 5:56 AM EDT 09/26/2018 10:32 AM EDT Narrative [facility] - 09/26/2018 10:38 AM EDT Added by Discern Expert [facility] Historical Provider LAB BLOOD ORDERABLES Fi nal Result [facility] [address] [phone] * ESR SEDIMENTATION RATE AUTO ([facility] BKR DATA CONV) (09/26/2018 5:56 AM EDT) Sed Rate Auto 11 0 - 30 mm/Hr 09/26/2018 11:21 AM EDT Blood 09/26/2018 5:56 AM EDT 09/26/2018 10:[address] [facility] Provider LAB BLOOD ORDERABLES Fi nal Result Performing Organization Address City/[facility]/ZIP Co de Phone Number [facility] [address] [phone] * (ABNORMAL) CBC W/ AUTO DIFF ([facility] BKR DATA CONV) (09/26/2018 5:56 AM EDT) WBC 5.8 4.5 - 10.5 K/uL 09/26/2018 10:37 AM EDT RBC 2.73(L) 3.93 - 5.22 Million/uL 09/26/2018 10:37 AM EDT Hgb 8.3(L) 11.2 - 15.7 g/dL 09/26/2018 10:37 AM EDT Hct 26.3(L) 34.1 - 44.9 % 09/26/2018 10:37 AM EDT MCV 96.3(H) 79.0 - 94.8 fL 09/26/2018 10:37 AM EDT MCH 30.4 25.6 - 32.2 pg 09/26/2018 10:37 AM EDT MCHC 31.6(L) 32.2 - 36.5 Gram/dL 09/26/2018 10:37 AM EDT RDW 18.3(H) 11.7 - 14.9 % 09/26/2018 10:37 AM EDT Platelet Count 186 163 - 369 K/uL 09/26/2018 10:37 AM EDT MPV 12.1 9.4 - 12.4 fL 09/26/2018 10:37 AM EDT Slide Review No 09/26/2018 10:38 AM EDT Blood 09/26/2018 5:56 AM EDT 09/26/2018 10:32 AM EDT [facility] Historical Provider LAB BLOOD ORDERABLES Fi nal Result [facility] [address] [phone] * (ABNORMAL) CMP COMPREHENSIVE METABOLIC PANEL ([facility] BKR DATA CONV) (09/26/2018 5:56 AM EDT) Sodium Level 145 136 - 146 mmol/L 09/26/2018 11:19 AM EDT Potassium Level 3.5 3.5 - 5.1 mmol/L 09/26/2018 11:19 AM EDT Chloride Level 115(H) 102 - 112 mmol/L 09/26/2018 11:19 AM EDT Carbon Dioxide Level 24 21 - 32 mmol/L 09/26/2018 11:19 AM EDT Anion Gap 10 9 - 20 09/26/2018 11:19 AM EDT Calcium Level 8.2(L) 8.4 - 10.1 mg/dL 09/26/2018 11:19 AM EDT Glucose Level 86 74 - 106 mg/dL 09/26/2018 11:19 AM EDT Comment: [employer] has become aware of sulfasalazine and sulfapyridine [...] administration of the drug. Blood Urea Nitrogen 13 7 - 22 mg/dL 09/26/2018 11:19 AM EDT Creatinine Level 1.20(H) 0.55 - 1.02 mg/dL 09/26/2018 11:19 AM EDT Bun/Creatinine 10.8 8.0 - 20.0 09/26/2018 11:19 AM EDT Albumin Level 2.2(L) 3.4 - 5.0 Gram/dL 09/26/2018 11:19 AM EDT Protein, Total 5.3(L) 6.4 - 8.2 Gram/dL 09/26/2018 11:19 AM EDT A/G Ratio 0.7(L) 1.1 - 2.5 09/26/2018 11:19 AM EDT Alk Phos 119 27 - 136 Units/Lit er 09/26/2018 11:19 AM EDT ALT 7(L) 13 - 56 Units/Lit er 09/26/2018 11:19 AM EDT Comment: [employer] has become aware of sulfasalazine and sulfapyridine [...] prior to administration of the drug. AST 14 5 - 37 Units/Lit er 09/26/2018 11:19 AM EDT Comment: Xumii has become aware of sulfasalazine and sulfapyridine [...] to administration of the drug. Bilirubin, Total 0.5 0.2 - 1.2 mg/dL 09/26/2018 11:19 AM EDT Globulin 3.1 1.5 - 4.5 Gram/dL 09/26/2018 11:19 AM EDT eGFR 55(L) >=60 mL/min/1. 73m2 09/26/2018 11:21 AM EDT Comment: GFR <60 suggests chronic kidney disease, if found over 3 month period. GFR <15 indicates renal failure. eGFR NonAfrican 45(L) >=60 mL/min/1. 73m2 09/26/2018 11:21 AM EDT Comment: GFR <60 suggests chronic kidney disease, if found over 3 month period. GFR <15 indicates renal failure. Blood 09/26/2018 5:56 AM EDT 09/26/2018 10:33 AM EDT [facility] Historical Provider LAB BLOOD ORDERABLES Fi nal Result [facility] [address] [phone] * (ABNORMAL) CRP C-REACTIVE PROTEIN ([facility] BKR DATA CONV) (09/26/2018 5:56 AM EDT) CRP 3.1(H) 0.0 - 0.9 mg/dL 09/26/2018 3:03 PM EDT Blood 09/26/2018 5:56 AM EDT 09/26/2018 2:44 PM EDT [facility] Historical Provider LAB BLOOD ORDERABLES Fi nal Result [facility] [address] [place] [address], [facility] [phone] * (ABNORMAL) BMP BASIC METABOLIC PANEL ([facility] BKR DATA CONV) (09/25/2018 6:30 AM EDT) Glucose Level 82 74 - 106 mg/dL 09/25/2018 10:56 AM EDT Comment: Xumii has become aware of sulfasalazine and sulfapyridine [...] administration of the drug. Blood Urea Nitrogen 15 7 - 22 mg/dL 09/25/2018 10:56 AM EDT Creatinine Level 1.20(H) 0.55 - 1.02 mg/dL 09/25/2018 10:56 AM EDT Sodium Level 145 136 - 146 mmol/L 09/25/2018 10:56 AM EDT Potassium Level 3.6 3.5 - 5.1 mmol/L 09/25/2018 10:56 AM EDT Chloride Level 115(H) 102 - 112 mmol/L 09/25/2018 10:56 AM EDT Carbon Dioxide Level 24 21 - 32 mmol/L 09/25/2018 10:56 AM EDT Anion Gap 10 9 - 20 09/25/2018 10:56 AM EDT Calcium Level 8.4 8.4 - 10.1 mg/dL 09/25/2018 10:56 AM EDT Bun/Creatinine 12.5 8.0 - 20.0 09/25/2018 10:56 AM EDT eGFR NonAfrican 45(L) >=60 mL/min/1. 73m2 09/25/2018 10:57 AM EDT Comment: GFR <60 suggests chronic kidney disease, if found over 3 month period. GFR <15 indicates renal failure. eGFR 55(L) >=60 mL/min/1. 73m2 09/25/2018 10:57 AM EDT Comment: GFR <60 suggests chronic kidney disease, if found over 3 month period. GFR <15 indicates renal failure. Blood 09/25/2018 6:30 AM EDT 09/25/2018 10:[address] [facility] Provider LAB BLOOD ORDERABLES Fi nal Result Performing Organization Address City/[facility] Co de Phone Number [facility] [address] [phone] * VANCOMYCIN,RANDOM (09/24/2018 6:35 AM EDT) Vancomycin Random 14.3 mcg/mL 09/24/2018 10:59 AM EDT Blood 09/24/2018 6:35 AM EDT 09/24/2018 10:[address] [facility] Provider MICROBIOLOGY - GENERAL ORDERABLES Final Result Performing Organization Address [facility] de Phone Number [facility] [address] [place] [address] * Platelet count (09/24/2018 6:35 AM EDT) Platelet Count 185 163 - 369 K/uL 09/24/2018 10:48 AM EDT Blood 09/24/2018 6:35 AM EDT 09/24/2018 10:[address] [facility] Provider LAB BLOOD ORDERABLES Fi nal Result Performing Organization Address [facility] Co de Phone Number [facility] [address] [place] [address] * (ABNORMAL) BMP BASIC METABOLIC PANEL ([facility] BKR DATA CONV) (09/24/2018 6:35 AM EDT) Glucose Level 89 74 - 106 mg/dL 09/24/2018 10:59 AM EDT Comment: Xumii has become aware of sulfasalazine and sulfapyridine [...] administration of the drug. Blood Urea Nitrogen 18 7 - 22 mg/dL 09/24/2018 10:59 AM EDT Creatinine Level 1.10(H) 0.55 - 1.02 mg/dL 09/24/2018 10:59 AM EDT Sodium Level 144 136 - 146 mmol/L 09/24/2018 10:59 AM EDT Potassium Level 3.4(L) 3.5 - 5.1 mmol/L 09/24/2018 10:59 AM EDT Chloride Level 115(H) 102 - 112 mmol/L 09/24/2018 10:59 AM EDT Carbon Dioxide Level 23 21 - 32 mmol/L 09/24/2018 10:59 AM EDT Anion Gap 9 9 - 20 09/24/2018 10:59 AM EDT Calcium Level 8.4 8.4 - 10.1 mg/dL 09/24/2018 10:59 AM EDT Bun/Creatinine 16.4 8.0 - 20.0 09/24/2018 10:59 AM EDT eGFR NonAfrican 50(L) >=60 mL/min/1. 73m2 09/24/2018 10:59 AM EDT Comment: GFR <60 suggests chronic kidney disease, if found over 3 month period. GFR <15 indicates renal failure. eGFR >60 >=60 mL/min/1. 73m2 09/24/2018 10:59 AM EDT Comment: GFR <60 suggests chronic kidney disease, if found over 3 month period. GFR <15 indicates renal failure. Blood 09/24/2018 6:35 AM EDT 09/24/2018 10:39 AM EDT [facility] Historical Provider LAB BLOOD ORDERABLES Fi nal Result [facility] 1 [place], [place] [address] [phone] * VANCOMYCIN,RANDOM (09/23/2018 6:08 AM EDT) Vancomycin Random 19.8 mcg/mL 09/23/2018 10:20 AM EDT Blood 09/23/2018 6:08 AM EDT 09/23/2018 10:[address] [facility] Provider MICROBIOLOGY - GENERAL ORDERABLES Final Result [facility] [address] [phone] * LIPASE (09/23/2018 6:08 AM EDT) Lipase Level 191 73 - 393 Units/Liter 09/23/2018 5:18 PM EDT Blood 09/23/2018 6:08 AM EDT 09/23/2018 5:[address] [facility] Provider PATHOLOGY/CYTOLOGY ORDE RABLES Final Result Performing Organization Address City/[facility] Co de Phone Number [facility] [address] [phone] * (ABNORMAL) BMP BASIC METABOLIC PANEL ([facility] BKR DATA CONV) (09/23/2018 6:08 AM EDT) Glucose Level 83 74 - 106 mg/dL 09/23/2018 10:20 AM EDT Comment: Xumii has become aware of sulfasalazine and sulfapyridine [...] administration of the drug. Blood Urea Nitrogen 18 7 - 22 mg/dL 09/23/2018 10:20 AM EDT Creatinine Level 1.10(H) 0.55 - 1.02 mg/dL 09/23/2018 10:20 AM EDT Sodium Level 146 136 - 146 mmol/L 09/23/2018 10:20 AM EDT Potassium Level 3.6 3.5 - 5.1 mmol/L 09/23/2018 10:20 AM EDT Chloride Level 115(H) 102 - 112 mmol/L 09/23/2018 10:20 AM EDT Carbon Dioxide Level 25 21 - 32 mmol/L 09/23/2018 10:20 AM EDT Anion Gap 10 9 - 20 09/23/2018 10:20 AM EDT Calcium Level 8.2(L) 8.4 - 10.1 mg/dL 09/23/2018 10:20 AM EDT Bun/Creatinine 16.4 8.0 - 20.0 09/23/2018 10:20 AM EDT eGFR NonAfrican 50(L) >=60 mL/min/1. 73m2 09/23/2018 10:25 AM EDT Comment: GFR <60 suggests chronic kidney disease, if found over 3 month period. GFR <15 indicates renal failure. eGFR >60 >=60 mL/min/1. 73m2 09/23/2018 10:25 AM EDT Comment: GFR <60 suggests chronic kidney disease, if found over 3 month period. GFR <15 indicates renal failure. Blood 09/23/2018 6:08 AM EDT 09/23/2018 10:08 AM EDT [facility] Historical Provider LAB BLOOD ORDERABLES Fi nal Result [facility] [address] [phone] * (ABNORMAL) BMP BASIC METABOLIC PANEL ([facility] BKR DATA CONV) (09/22/2018 4:50 AM EDT) Glucose Level 87 74 - 106 mg/dL 09/22/2018 9:31 AM EDT Comment: Xumii has become aware of sulfasalazine and sulfapyridine [...] administration of the drug. Blood Urea Nitrogen 21 7 - 22 mg/dL 09/22/2018 9:31 AM EDT Creatinine Level 1.10(H) 0.55 - 1.02 mg/dL 09/22/2018 9:31 AM EDT Sodium Level 146 136 - 146 mmol/L 09/22/2018 9:31 AM EDT Potassium Level 3.4(L) 3.5 - 5.1 mmol/L 09/22/2018 9:31 AM EDT Chloride Level 116(H) 102 - 112 mmol/L 09/22/2018 9:31 AM EDT Carbon Dioxide Level 24 21 - 32 mmol/L 09/22/2018 9:31 AM EDT Anion Gap 9 - 20 09/22/2018 9:31 AM EDT Calcium Level 8.2(L) 8.4 - 10.1 mg/dL 09/22/2018 9:31 AM EDT Bun/Creatinine 19.1 8.0 - 20.0 09/22/2018 9:31 AM EDT eGFR NonAfrican 50(L) >=60 mL/min/1. 73m2 09/22/2018 9:31 AM EDT Comment: GFR <60 suggests chronic kidney disease, if found over 3 month period. GFR <15 indicates renal failure. eGFR >60 >=60 mL/min/1. 73m2 09/22/2018 9:31 AM EDT Comment: GFR <60 suggests chronic kidney disease, if found over 3 month period. GFR <15 indicates renal failure. Blood 09/22/2018 4:50 AM EDT 09/22/2018 9:[address] [facility] Provider LAB BLOOD ORDERABLES Fi nal Result Performing Organization Address [facility]/ZIP Co de Phone Number [facility] [address] [phone] * Platelet count (09/22/2018 4:50 AM EDT) Platelet Count 182 163 - 369 K/uL 09/22/2018 9:01 AM EDT Blood 09/22/2018 4:50 AM EDT 09/22/2018 8:[address] [facility] Provider LAB BLOOD ORDERABLES Fi nal Result Performing Organization Address [facility]/ZIP Co de Phone Number [facility] [address] [phone] * VANCOMYCIN,RANDOM (09/22/2018 4:50 AM EDT) [facility] Vancomycin Random 19.6 mcg/mL 09/22/2018 3:21 PM EDT Blood 09/22/2018 4:50 AM EDT 09/22/2018 2:[address] [facility] Provider MICROBIOLOGY - GENERAL ORDERABLES Final Result Performing Organization Address [facility] Co de Phone Number [facility] [address] [phone] * (ABNORMAL) VANCOMYCIN LEVEL TROUGH ([facility] BKR DATA CONV) (09/21/2018 4:11 PM EDT) [facility] Vancomycin Trough 22.7(H) 5.0 - 15.0 mcg/mL 09/21/2018 8:39 PM EDT Blood 09/21/2018 4:11 PM EDT 09/21/2018 8:[address] [facility] Provider LAB BLOOD ORDERABLES Fi nal Result Performing Organization Address [facility] Co de Phone Number [facility] [address] [phone] * (ABNORMAL) BMP BASIC METABOLIC PANEL ([facility] BKR DATA CONV) (09/21/2018 5:20 AM EDT) [facility] Glucose Level 95 74 - 106 mg/dL 09/21/2018 9:42 AM EDT Comment: Xumii has become aware of sulfasalazine and sulfapyridine [...] administration of the drug. Blood Urea Nitrogen 26(H) 7 - 22 mg/dL 09/21/2018 9:42 AM EDT Creatinine Level 1.10(H) 0.55 - 1.02 mg/dL 09/21/2018 9:42 AM EDT Sodium Level 146 136 - 146 mmol/L 09/21/2018 9:42 AM EDT Potassium Level 3.4(L) 3.5 - 5.1 mmol/L 09/21/2018 9:42 AM EDT Chloride Level 116(H) 102 - 112 mmol/L 09/21/2018 9:42 AM EDT Carbon Dioxide Level 24 21 - 32 mmol/L 09/21/2018 9:42 AM EDT Anion Gap 9 9 - 20 09/21/2018 9:42 AM EDT Calcium Level 8.2(L) 8.4 - 10.1 mg/dL 09/21/2018 9:42 AM EDT Bun/Creatinine 23.6(H) 8.0 - 20.0 09/21/2018 9:42 AM EDT eGFR NonAfrican 50(L) >=60 mL/min/1. 73m2 09/21/2018 9:43 AM EDT Comment: GFR <60 suggests chronic kidney disease, if found over 3 month period. GFR <15 indicates renal failure. eGFR >60 >=60 mL/min/1. 73m2 09/21/2018 9:43 AM EDT Comment: GFR <60 suggests chronic kidney disease, if found over 3 month period. GFR <15 indicates renal failure. Blood 09/21/2018 5:20 AM EDT 09/21/2018 9:32 AM EDT [facility] Historical Provider LAB BLOOD ORDERABLES Fi nal Result [facility] [address] [phone] * (ABNORMAL) BMP BASIC METABOLIC PANEL ([facility] BKR DATA CONV) (09/20/2018 5:46 AM EDT) Glucose Level 88 74 - 106 mg/dL 09/20/2018 11:53 AM EDT Comment: Xumii has become aware of sulfasalazine and sulfapyridine [...] administration of the drug. Blood Urea Nitrogen 25(H) 7 - 22 mg/dL 09/20/2018 11:53 AM EDT Creatinine Level 1.10(H) 0.55 - 1.02 mg/dL 09/20/2018 11:53 AM EDT Sodium Level 146 136 - 146 mmol/L 09/20/2018 11:53 AM EDT Potassium Level 3.6 3.5 - 5.1 mmol/L 09/20/2018 11:53 AM EDT Chloride Level 117(H) 102 - 112 mmol/L 09/20/2018 11:53 AM EDT Carbon Dioxide Level 23 21 - 32 mmol/L 09/20/2018 11:53 AM EDT Anion Gap 10 9 - 20 09/20/2018 11:53 AM EDT Calcium Level 8.2(L) 8.4 - 10.1 mg/dL 09/20/2018 11:53 AM EDT Bun/Creatinine 22.7(H) 8.0 - 20.0 09/20/2018 11:53 AM EDT eGFR NonAfrican 50(L) >=60 mL/min/1. 73m2 09/20/2018 11:53 AM EDT Comment: GFR <60 suggests chronic kidney disease, if found over 3 month period. GFR <15 indicates renal failure. eGFR >60 >=60 mL/min/1. 73m2 09/20/2018 11:53 AM EDT Comment: GFR <60 suggests chronic kidney disease, if found over 3 month period. GFR <15 indicates renal failure. Blood 09/20/2018 5:46 AM EDT 09/20/2018 11:10 AM EDT [facility] Historical Provider LAB BLOOD ORDERABLES Fi nal Result [facility] 1 [place] [address], [facility] [phone] * Platelet count (09/20/2018 5:46 AM EDT) [facility] Platelet Count 170 163 - 369 K/uL 09/20/2018 11:18 AM EDT Blood 09/20/2018 5:46 AM EDT 09/20/2018 11:[address] [facility] Provider LAB BLOOD ORDERABLES Fi nal Result Performing Organization Address [facility]/ZIP Co de Phone Number [facility] [address] [phone] * PHOSPHORUS (09/19/2018 5:26 AM EDT) Pathologist [facility] Phosphorus 2.8 2.5 - 4.9 mg/dL 09/19/2018 10:48 AM EDT Blood 09/19/2018 5:26 AM EDT 09/19/2018 10:[address] [facility] Provider MICROBIOLOGY - GENERAL ORDERABLES Final Result Performing Organization Address [facility] de Phone Number [facility] [address] [phone] * (ABNORMAL) CMP COMPREHENSIVE METABOLIC PANEL ([facility] BKR DATA CONV) (09/19/2018 5:26 AM EDT) Pathologist [facility] Sodium Level 146 136 - 146 mmol/L 09/19/2018 10:48 AM EDT Potassium Level 3.4(L) 3.5 - 5.1 mmol/L 09/19/2018 10:48 AM EDT Chloride Level 116(H) 102 - 112 mmol/L 09/19/2018 10:48 AM EDT Carbon Dioxide Level 24 21 - 32 mmol/L 09/19/2018 10:48 AM EDT Anion Gap 9 9 - 20 09/19/2018 10:48 AM EDT Calcium Level 8.1(L) 8.4 - 10.1 mg/dL 09/19/2018 10:48 AM EDT Glucose Level 88 74 - 106 mg/dL 09/19/2018 10:48 AM EDT Comment: Xumii has become aware of sulfasalazine and sulfapyridine [...] administration of the drug. Blood Urea Nitrogen 27(H) 7 - 22 mg/dL 09/19/2018 10:48 AM EDT Creatinine Level 1.10(H) 0.55 - 1.02 mg/dL 09/19/2018 10:48 AM EDT Bun/Creatinine 24.5(H) 8.0 - 20.0 09/19/2018 10:48 AM EDT Albumin Level 2.2(L) 3.4 - 5.0 Gram/dL 09/19/2018 10:48 AM EDT Protein, Total 5.0(L) 6.4 - 8.2 Gram/dL 09/19/2018 10:48 AM EDT A/G Ratio 0.8(L) 1.1 - 2.5 09/19/2018 10:48 AM EDT Alk Phos 119 27 - 136 Units/Lit er 09/19/2018 10:48 AM EDT ALT 8(L) 13 - 56 Units/Lit er 09/19/2018 10:48 AM EDT Comment: Xumii has become aware of sulfasalazine and sulfapyridine [...] prior to administration of the drug. AST 11 5 - 37 Units/Lit er 09/19/2018 10:48 AM EDT Comment: Xumii has become aware of sulfasalazine and sulfapyridine [...] to administration of the drug. Bilirubin, Total 0.6 0.2 - 1.2 mg/dL 09/19/2018 10:48 AM EDT Globulin 2.8 1.5 - 4.5 Gram/dL 09/19/2018 10:48 AM EDT eGFR >60 >=60 mL/min/1. 73m2 09/19/2018 10:51 AM EDT Comment: GFR <60 suggests chronic kidney disease, if found over 3 month period. GFR <15 indicates renal failure. eGFR NonAfrican 50(L) >=60 mL/min/1. 73m2 09/19/2018 10:51 AM EDT Comment: GFR <60 suggests chronic kidney disease, if found over 3 month period. GFR <15 indicates renal failure. Blood 09/19/2018 5:26 AM EDT 09/19/2018 10:[address] [facility] Provider LAB BLOOD ORDERABLES Fi nal Result Performing Organization Address [facility] Co de Phone Number [facility] [address] [place] [address] * ESR SEDIMENTATION RATE AUTO ([facility] BKR DATA CONV) (09/19/2018 5:26 AM EDT) Sed Rate Auto 9 0 - 30 mm/Hr 09/19/2018 11:10 AM EDT Blood 09/19/2018 5:26 AM EDT 09/19/2018 10:[address] [facility] Provider LAB BLOOD ORDERABLES Fi nal Result Performing Organization Address City/[facility] Co de Phone Number [facility] [address] [place] [address] * MAGNESIUM LEVEL ([facility] BKR DATA CONV) (09/19/2018 5:26 AM EDT) Magnesium Level 2.0 1.5 - 2.4 mg/dL 09/19/2018 10:47 AM EDT Blood 09/19/2018 5:26 AM EDT 09/19/2018 10:[address] [facility] Provider LAB BLOOD ORDERABLES Fi nal Result Performing Organization Address City/[facility]/ZIP Co de Phone Number [facility] [address] [phone] * (ABNORMAL) CRP C-REACTIVE PROTEIN ([facility] BKR DATA CONV) (09/19/2018 5:26 AM EDT) CRP 2.0(H) 0.0 - 0.9 mg/dL 09/19/2018 2:39 PM EDT Blood 09/19/2018 5:26 AM EDT 09/19/2018 2:[address] [facility] Provider LAB BLOOD ORDERABLES Fi nal Result Performing Organization Address [facility] Co de Phone Number [facility] [address] [phone] * (ABNORMAL) Prealbumin, Serum(SENDOUT) (09/19/2018 5:26 AM EDT) Pre albumin 13.1(L) 20.0 - 40.0 mg/dL 09/19/2018 10:47 AM EDT Blood 09/19/2018 5:26 AM EDT 09/19/2018 10:[address] [facility] Provider LAB BLOOD ORDERABLES Fi nal Result Performing Organization Address City/[facility]/ZIP Co de Phone Number [facility] [address] [phone] * (ABNORMAL) CBC W/ AUTO DIFF ([facility] BKR DATA CONV) (09/19/2018 5:26 AM EDT) WBC 5.7 4.5 - 10.5 K/uL 09/19/2018 10:16 AM EDT RBC 2.77(L) 3.93 - 5.22 Million/uL 09/19/2018 10:16 AM EDT Hgb 8.2(L) 11.2 - 15.7 g/dL 09/19/2018 10:16 AM EDT Hct 26.3(L) 34.1 - 44.9 % 09/19/2018 10:16 AM EDT MCV 94.9(H) 79.0 - 94.8 fL 09/19/2018 10:16 AM EDT MCH 29.6 25.6 - 32.2 pg 09/19/2018 10:16 AM EDT MCHC 31.2(L) 32.2 - 36.5 Gram/dL 09/19/2018 10:16 AM EDT RDW 18.2(H) 11.7 - 14.9 % 09/19/2018 10:16 AM EDT Platelet Count 174 163 - 369 K/uL 09/19/2018 10:16 AM EDT MPV 12.0 9.4 - 12.4 fL 09/19/2018 10:16 AM EDT Slide Review No 09/19/2018 10:18 AM EDT Blood 09/19/2018 5:26 AM EDT 09/19/2018 10:13 AM EDT [facility] Historical Provider LAB BLOOD ORDERABLES nal Result [facility] [address] [phone] * (ABNORMAL) AUTOMATED DIFFERENTIAL ([facility] BKR DATA CONV) (09/19/2018 5:26 AM EDT) Neut% 63.0 34.0 - 71.0 % 09/19/2018 10:16 AM EDT Lymph% 19.9 19.3 - 53.1 % 09/19/2018 10:16 AM EDT Gregg% 10.3(H) 3.0 - 9.0 % 09/19/2018 10:16 AM EDT Eos% 5.8 0.0 - 7.0 % 09/19/2018 10:16 AM EDT Baso% 0.7 0.0 - 1.5 % 09/19/2018 10:16 AM EDT IG% 0.30 0.00 - 0.60 % 09/19/2018 10:16 AM EDT Neut# 3.61 1.56 - 6.13 K/uL 09/19/2018 10:16 AM EDT Lymph# 1.14 1.00 - 3.90 x10(3)/uL 09/19/2018 10:16 AM EDT Gregg# 0.59 0.16 - 1.00 K/uL 09/19/2018 10:16 AM EDT Eos# 0.33 0.00 - 0.80 x10(3)/uL 09/19/2018 10:16 AM EDT Baso# 0.04 0.00 - 0.20 x10(3)/uL 09/19/2018 10:16 AM EDT IG# 0.02 0.00 - 0.05 x10(3)/uL 09/19/2018 10:16 AM EDT Blood 09/19/2018 5:26 AM EDT 09/19/2018 10:13 AM EDT Narrative [facility] - 09/19/2018 10:18 AM EDT Added by Discern Expert [facility] Provider LAB BLOOD ORDERABLES Fi nal Result Performing Organization Address [facility]/ZIP Co de Phone Number [facility] [address] [phone] * Platelet count (09/18/2018 4:29 AM EDT) Platelet Count 169 163 - 369 K/uL 09/18/2018 10:40 AM EDT Blood 09/18/2018 4:29 AM EDT 09/18/2018 10:[address] [facility] Provider LAB BLOOD ORDERABLES Fi nal Result Performing Organization Address [facility]/ZIP Co de Phone Number [facility] [address] [phone] * (ABNORMAL) BMP BASIC METABOLIC PANEL ([facility] BKR DATA CONV) (09/18/2018 4:29 AM EDT) Glucose Level 90 74 - 106 mg/dL 09/18/2018 10:49 AM EDT Comment: Xumii has become aware of sulfasalazine and sulfapyridine [...] administration of the drug. Blood Urea Nitrogen 30(H) 7 - 22 mg/dL 09/18/2018 10:49 AM EDT Creatinine Level 1.10(H) 0.55 - 1.02 mg/dL 09/18/2018 10:49 AM EDT Sodium Level 146 136 - 146 mmol/L 09/18/2018 10:49 AM EDT Potassium Level 3.4(L) 3.5 - 5.1 mmol/L 09/18/2018 10:49 AM EDT Chloride Level 116(H) 102 - 112 mmol/L 09/18/2018 10:49 AM EDT Carbon Dioxide Level 25 21 - 32 mmol/L 09/18/2018 10:49 AM EDT Anion Gap 8(L) 9 - 20 09/18/2018 10:49 AM EDT Calcium Level 8.0(L) 8.4 - 10.1 mg/dL 09/18/2018 10:49 AM EDT Bun/Creatinine 27.3(H) 8.0 - 20.0 09/18/2018 10:49 AM EDT eGFR NonAfrican 50(L) >=60 mL/min/1. 73m2 09/18/2018 10:51 AM EDT Comment: GFR <60 suggests chronic kidney disease, if found over 3 month period. GFR <15 indicates renal failure. eGFR >60 >=60 mL/min/1. 73m2 09/18/2018 10:51 AM EDT Comment: GFR <60 suggests chronic kidney disease, if found over 3 month period. GFR <15 indicates renal failure. Blood 09/18/2018 4:29 AM EDT 09/18/2018 10:31 AM EDT [facility] Historical Provider LAB BLOOD ORDERABLES Fi nal Result [facility] [address] [place] [address], [facility] [phone] * (ABNORMAL) VANCOMYCIN LEVEL TROUGH ([facility] BK DATA CONV) (09/17/2018 3:12 PM EDT) Vancomycin Trough 19.3(H) 5.0 - 15.0 mcg/mL 09/17/2018 7:36 PM EDT Blood 09/17/2018 3:12 PM EDT 09/17/2018 7:23 PM EDT [facility] Historical Provider LAB BLOOD ORDERABLES Fi nal Result [facility] [address] [phone] * (ABNORMAL) BMP BASIC METABOLIC PANEL ([facility] BKR DATA CONV) (09/17/2018 4:32 AM EDT) Pathologist [facility] Glucose Level 97 74 - 106 mg/dL 09/17/2018 9:17 AM EDT Comment: Xumii has become aware of sulfasalazine and sulfapyridine [...] administration of the drug. Blood Urea Nitrogen 35(H) 7 - 22 mg/dL 09/17/2018 9:17 AM EDT Creatinine Level 1.20(H) 0.55 - 1.02 mg/dL 09/17/2018 9:17 AM EDT Sodium Level 147(H) 136 - 146 mmol/L 09/17/2018 9:17 AM EDT Potassium Level 3.5 3.5 - 5.1 mmol/L 09/17/2018 9:17 AM EDT Chloride Level 116(H) 102 - 112 mmol/L 09/17/2018 9:17 AM EDT Carbon Dioxide Level 25 21 - 32 mmol/L 09/17/2018 9:17 AM EDT Anion Gap 10 9 - 20 09/17/2018 9:17 AM EDT Calcium Level 8.1(L) 8.4 - 10.1 mg/dL 09/17/2018 9:17 AM EDT Bun/Creatinine 29.2(H) 8.0 - 20.0 09/17/2018 9:17 AM EDT eGFR NonAfrican 45(L) >=60 mL/min/1. 73m2 09/17/2018 9:18 AM EDT Comment: GFR <60 suggests chronic kidney disease, if found over 3 month period. GFR <15 indicates renal failure. eGFR 55(L) >=60 mL/min/1. 73m2 09/17/2018 9:18 AM EDT Comment: GFR <60 suggests chronic kidney disease, if found over 3 month period. GFR <15 indicates renal failure. Blood 09/17/2018 4:32 AM EDT 09/17/2018 8:48 AM EDT [facility] Historical Provider LAB BLOOD ORDERABLES [facility] [address] [phone] * (ABNORMAL) CBC W/ AUTO DIFF ([facility] BKR DATA CONV) (09/16/2018 5:29 AM EDT) WBC 7.0 4.5 - 10.5 K/uL 09/16/2018 9:59 AM EDT RBC 2.87(L) 3.93 - 5.22 Million/uL 09/16/2018 9:59 AM EDT Hgb 8.6(L) 11.2 - 15.7 g/dL 09/16/2018 9:59 AM EDT Hct 27.2(L) 34.1 - 44.9 % 09/16/2018 9:59 AM EDT MCV 94.8 79.0 - 94.8 fL 09/16/2018 9:59 AM EDT MCH 30.0 25.6 - 32.2 pg 09/16/2018 9:59 AM EDT MCHC 31.6(L) 32.2 - 36.5 Gram/dL 09/16/2018 9:59 AM EDT RDW 18.6(H) 11.7 - 14.9 % 09/16/2018 9:59 AM EDT Platelet Count 197 163 - 369 K/uL 09/16/2018 9:59 AM EDT MPV 11.3 9.4 - 12.4 fL 09/16/2018 9:59 AM EDT Slide Review No 09/16/2018 10:03 AM EDT Blood 09/16/2018 5:29 AM EDT 09/16/2018 9:53 AM [address] us [facility] Historical Provider LAB BLOOD ORDERABLES Fi nal Result [facility] [address] [place] [address] * (ABNORMAL) AUTOMATED DIFFERENTIAL ([facility] BKR DATA CONV) (09/16/2018 5:29 AM EDT) Neut% 66.5 34.0 - 71.0 % 09/16/2018 9:59 AM EDT Lymph% 17.5(L) 19.3 - 53.1 % 09/16/2018 9:59 AM EDT Gregg% 9.8(H) 3.0 - 9.0 % 09/16/2018 9:59 AM EDT Eos% 4.6 0.0 - 7.0 % 09/16/2018 9:59 AM EDT Baso% 0.9 0.0 - 1.5 % 09/16/2018 9:59 AM EDT IG% 0.70(H) 0.00 - 0.60 % 09/16/2018 9:59 AM EDT Neut# 4.63 1.56 - 6.13 K/uL 09/16/2018 9:59 AM EDT Lymph# 1.22 1.00 - 3.90 x10(3)/uL 09/16/2018 9:59 AM EDT Gregg# 0.68 0.16 - 1.00 K/uL 09/16/2018 9:59 AM EDT Eos# 0.32 0.00 - 0.80 x10(3)/uL 09/16/2018 9:59 AM EDT Baso# 0.06 0.00 - 0.20 x10(3)/uL 09/16/2018 9:59 AM EDT IG# 0.05 0.00 - 0.05 x10(3)/uL 09/16/2018 9:59 AM EDT Blood 09/16/2018 5:29 AM EDT 09/16/2018 9:53 AM EDT Narrative [facility] - 09/16/2018 10:03 AM EDT Added by Discern Expert us [facility] Historical Provider LAB BLOOD ORDERABLES Fi nal Result [facility] [address] [phone] * (ABNORMAL) CMP COMPREHENSIVE METABOLIC PANEL ([facility] BKR DATA CONV) (09/16/2018 5:29 AM EDT) Sodium Level 145 136 - 146 mmol/L 09/16/2018 10:30 AM EDT Potassium Level 3.4(L) 3.5 - 5.1 mmol/L 09/16/2018 10:30 AM EDT Chloride Level 114(H) 102 - 112 mmol/L 09/16/2018 10:30 AM EDT Carbon Dioxide Level 25 21 - 32 mmol/L 09/16/2018 10:30 AM EDT Anion Gap 9 9 - 20 09/16/2018 10:30 AM EDT Calcium Level 8.1(L) 8.4 - 10.1 mg/dL 09/16/2018 10:30 AM EDT Glucose Level 95 74 - 106 mg/dL 09/16/2018 10:30 AM EDT Comment: Xumii has become aware of sulfasalazine and sulfapyridine [...] administration of the drug. Blood Urea Nitrogen 39(H) 7 - 22 mg/dL 09/16/2018 10:30 AM EDT Creatinine Level 1.20(H) 0.55 - 1.02 mg/dL 09/16/2018 10:30 AM EDT Bun/Creatinine 32.5(H) 8.0 - 20.0 09/16/2018 10:30 AM EDT Albumin Level 2.3(L) 3.4 - 5.0 Gram/dL 09/16/2018 10:30 AM EDT Protein, Total 5.0(L) 6.4 - 8.2 Gram/dL 09/16/2018 10:30 AM EDT A/G Ratio 0.9(L) 1.1 - 2.5 09/16/2018 10:30 AM EDT Alk Phos 127 27 - 136 Units/Lit er 09/16/2018 10:30 AM EDT Comment:Released without rep eat. ALT 8(L) 13 - 56 Units/Lit er 09/16/2018 10:30 AM EDT Comment: Xumii has become aware of sulfasalazine and sulfapyridine [...] prior to administration of the drug. AST 14 5 - 37 Units/Lit er 09/16/2018 10:30 AM EDT Comment: Xumii has become aware of sulfasalazine and sulfapyridine [...] to administration of the drug. Bilirubin, Total 0.7 0.2 - 1.2 mg/dL 09/16/2018 10:30 AM EDT Globulin 2.7 1.5 - 4.5 Gram/dL 09/16/2018 10:30 AM EDT eGFR 55(L) >=60 mL/min/1. 73m2 09/16/2018 10:31 AM EDT Comment: GFR <60 suggests chronic kidney disease, if found over 3 month period. GFR <15 indicates renal failure. eGFR NonAfrican 45(L) >=60 mL/min/1. 73m2 09/16/2018 10:31 AM EDT Comment: GFR <60 suggests chronic kidney disease, if found over 3 month period. GFR <15 indicates renal failure. Blood 09/16/2018 5:29 AM EDT 09/16/2018 9:[address] [facility] Provider LAB BLOOD ORDERABLES Fi nal Result [facility] [address] [phone] * CK CREATINE KINASE ([facility] BKR DATA CONV) (09/15/2018 4:36 AM EDT) CK 32 26 - 192 Units/Liter 09/15/2018 11:09 AM EDT Blood 09/15/2018 4:36 AM EDT 09/15/2018 10:[address] [facility] Provider LAB BLOOD ORDERABLES Fi nal Result Performing Organization Address [facility] Co de Phone Number [facility] [address] [phone] * (ABNORMAL) BMP BASIC METABOLIC PANEL ([facility] BKR DATA CONV) (09/15/2018 4:36 AM EDT) Glucose Level 87 74 - 106 mg/dL 09/15/2018 11:09 AM EDT Comment: Xumii has become aware of sulfasalazine and sulfapyridine [...] administration of the drug. Blood Urea Nitrogen 41(H) 7 - 22 mg/dL 09/15/2018 11:09 AM EDT Creatinine Level 1.30(H) 0.55 - 1.02 mg/dL 09/15/2018 11:09 AM EDT Sodium Level 146 136 - 146 mmol/L 09/15/2018 11:09 AM EDT Potassium Level 3.5 3.5 - 5.1 mmol/L 09/15/2018 11:09 AM EDT Chloride Level 113(H) 102 - 112 mmol/L 09/15/2018 11:09 AM EDT Carbon Dioxide Level 26 21 - 32 mmol/L 09/15/2018 11:09 AM EDT Anion Gap 10 9 - 20 09/15/2018 11:09 AM EDT Calcium Level 8.3(L) 8.4 - 10.1 mg/dL 09/15/2018 11:09 AM EDT Bun/Creatinine 31.5(H) 8.0 - 20.0 09/15/2018 11:09 AM EDT eGFR NonAfrican 41(L) >=60 mL/min/1. 73m2 09/15/2018 11:10 AM EDT Comment: GFR <60 suggests chronic kidney disease, if found over 3 month period. GFR <15 indicates renal failure. eGFR 50(L) >=60 mL/min/1. 73m2 09/15/2018 11:10 AM EDT Comment: GFR <60 suggests chronic kidney disease, if found over 3 month period. GFR <15 indicates renal failure. Blood 09/15/2018 4:36 AM EDT 09/15/2018 10:[address] [facility] Provider LAB BLOOD ORDERABLES Fi nal Result Performing Organization Address City/[facility] Co de Phone Number [facility] [address] [place] [address] * Platelet count (09/14/2018 4:08 AM EDT) Platelet Count 235 163 - 369 K/uL 09/14/2018 8:42 AM EDT Blood 09/14/2018 4:08 AM EDT 09/14/2018 8:[address] [facility] Provider LAB BLOOD ORDERABLES Fi nal Result Performing Organization Address [facility] Co de Phone Number [facility] [address] [phone] * (ABNORMAL) BMP BASIC METABOLIC PANEL ([facility] BKR DATA CONV) (09/14/2018 4:08 AM EDT) Glucose Level 93 74 - 106 mg/dL 09/14/2018 9:05 AM EDT Comment: Xumii has become aware of sulfasalazine and sulfapyridine [...] administration of the drug. Blood Urea Nitrogen 39(H) 7 - 22 mg/dL 09/14/2018 9:05 AM EDT Creatinine Level 1.40(H) 0.55 - 1.02 mg/dL 09/14/2018 9:05 AM EDT Sodium Level 146 136 - 146 mmol/L 09/14/2018 9:05 AM EDT Potassium Level 3.4(L) 3.5 - 5.1 mmol/L 09/14/2018 9:05 AM EDT Chloride Level 112 102 - 112 mmol/L 09/14/2018 9:05 AM EDT Carbon Dioxide Level 28 21 - 32 mmol/L 09/14/2018 9:05 AM EDT Anion Gap 9 9 - 20 09/14/2018 9:05 AM EDT Calcium Level 8.2(L) 8.4 - 10.1 mg/dL 09/14/2018 9:05 AM EDT Bun/Creatinine 27.9(H) 8.0 - 20.0 09/14/2018 9:05 AM EDT eGFR NonAfrican 38(L) >=60 mL/min/1. 73m2 09/14/2018 9:07 AM EDT Comment: GFR <60 suggests chronic kidney disease, if found over 3 month period. GFR <15 indicates renal failure. eGFR 46(L) >=60 mL/min/1. 73m2 09/14/2018 9:07 AM EDT Comment: GFR <60 suggests chronic kidney disease, if found over 3 month period. GFR <15 indicates renal failure. Blood 09/14/2018 4:08 AM EDT 09/14/2018 8:56 AM EDT [facility] Historical Provider LAB BLOOD ORDERABLES Fi nal Result [facility] [address] [place] [address], [facility] [phone] * (ABNORMAL) BMP BASIC METABOLIC PANEL ([facility] BKR DATA CONV) (09/13/2018 5:22 AM EDT) Glucose Level 93 74 - 106 mg/dL 09/13/2018 10:31 AM EDT Comment: Xumii has become aware of sulfasalazine and sulfapyridine [...] administration of the drug. Blood Urea Nitrogen 36(H) 7 - 22 mg/dL 09/13/2018 10:31 AM EDT Creatinine Level 1.50(H) 0.55 - 1.02 mg/dL 09/13/2018 10:31 AM EDT Sodium Level 146 136 - 146 mmol/L 09/13/2018 10:31 AM EDT Potassium Level 3.6 3.5 - 5.1 mmol/L 09/13/2018 10:31 AM EDT Chloride Level 113(H) 102 - 112 mmol/L 09/13/2018 10:31 AM EDT Carbon Dioxide Level 29 21 - 32 mmol/L 09/13/2018 10:31 AM EDT Anion Gap 8(L) 9 - 20 09/13/2018 10:31 AM EDT Calcium Level 8.2(L) 8.4 - 10.1 mg/dL 09/13/2018 10:31 AM EDT Bun/Creatinine 24.0(H) 8.0 - 20.0 09/13/2018 10:31 AM EDT eGFR NonAfrican 35(L) >=60 mL/min/1. 73m2 09/13/2018 10:31 AM EDT Comment: GFR <60 suggests chronic kidney disease, if found over 3 month period. GFR <15 indicates renal failure. eGFR 42(L) >=60 mL/min/1. 73m2 09/13/2018 10:31 AM EDT Comment: GFR <60 suggests chronic kidney disease, if found over 3 month period. GFR <15 indicates renal failure. Blood 09/13/2018 5:22 AM EDT 09/13/2018 10:[address] [facility] Provider LAB BLOOD ORDERABLES Fi nal Result Performing Organization Address City/[facility]/ZIP Co de Phone Number [facility] [address] [phone] * ESR SEDIMENTATION RATE AUTO ([facility] BKR DATA CONV) (09/12/2018 5:02 AM EDT) Sed Rate Auto 3 0 - 30 mm/Hr 09/12/2018 11:13 AM EDT Blood 09/12/2018 5:02 AM EDT 09/12/2018 10:[address] [facility] Provider LAB BLOOD ORDERABLES Fi nal Result Performing Organization Address [facility] Co de Phone Number [facility] [address] [phone] * (ABNORMAL) CRP C-REACTIVE PROTEIN ([facility] BKR DATA CONV) (09/12/2018 5:02 AM EDT) CRP 3.6(H) 0.0 - 0.9 mg/dL 09/12/2018 3:03 PM EDT Blood 09/12/2018 5:02 AM EDT 09/12/2018 2:[address] [facility] Provider LAB BLOOD ORDERABLES Fi nal Result Performing Organization Address City/[facility] Co de Phone Number [facility] [address] [phone] * (ABNORMAL) CBC W/ AUTO DIFF ([facility] BKR DATA CONV) (09/12/2018 5:02 AM EDT) WBC 7.2 4.5 - 10.5 K/uL 09/12/2018 10:48 AM EDT RBC 2.80(L) 3.93 - 5.22 Million/uL 09/12/2018 10:48 AM EDT Hgb 8.2(L) 11.2 - 15.7 g/dL 09/12/2018 10:48 AM EDT Hct 26.4(L) 34.1 - 44.9 % 09/12/2018 10:48 AM EDT MCV 94.3 79.0 - 94.8 fL 09/12/2018 10:48 AM EDT MCH 29.3 25.6 - 32.2 pg 09/12/2018 10:48 AM EDT MCHC 31.1(L) 32.2 - 36.5 Gram/dL 09/12/2018 10:48 AM EDT RDW 18.8(H) 11.7 - 14.9 % 09/12/2018 10:48 AM EDT Platelet Count 279 163 - 369 K/uL 09/12/2018 10:48 AM EDT MPV 10.5 9.4 - 12.4 fL 09/12/2018 10:48 AM EDT Slide Review No 09/12/2018 10:56 AM EDT Blood 09/12/2018 5:02 AM EDT 09/12/2018 10:41 AM EDT [facility] Historical Provider LAB BLOOD ORDERABLES Fi nal Result Performing Organization Address City/[facility]/ZIP Co de Phone Number [facility] [address] [phone] * (ABNORMAL) Prealbumin, Serum(SENDOUT) (09/12/2018 5:02 AM EDT) Pre albumin 10.2(L) 20.0 - 40.0 mg/dL 09/12/2018 11:15 AM EDT Blood 09/12/2018 5:02 AM EDT 09/12/2018 10:[address] [facility] Provider LAB BLOOD ORDERABLES Fi nal Result [facility] [address] [phone] * (ABNORMAL) AUTOMATED DIFFERENTIAL ([facility] BKR DATA CONV) (09/12/2018 5:02 AM EDT) Neut% 63.2 34.0 - 71.0 % 09/12/2018 10:48 AM EDT Lymph% 20.5 19.3 - 53.1 % 09/12/2018 10:48 AM EDT Gregg% 9.9(H) 3.0 - 9.0 % 09/12/2018 10:48 AM EDT Eos% 4.6 0.0 - 7.0 % 09/12/2018 10:48 AM EDT Baso% 0.8 0.0 - 1.5 % 09/12/2018 10:48 AM EDT IG% 1.00(H) 0.00 - 0.60 % 09/12/2018 10:48 AM EDT Neut# 4.52 1.56 - 6.13 K/uL 09/12/2018 10:48 AM EDT Lymph# 1.47 1.00 - 3.90 x10(3)/uL 09/12/2018 10:48 AM EDT Gregg# 0.71 0.16 - 1.00 K/uL 09/12/2018 10:48 AM EDT Eos# 0.33 0.00 - 0.80 x10(3)/uL 09/12/2018 10:48 AM EDT Baso# 0.06 0.00 - 0.20 x10(3)/uL 09/12/2018 10:48 AM EDT IG# 0.07(H) 0.00 - 0.05 x10(3)/uL 09/12/2018 10:48 AM EDT Blood 09/12/2018 5:02 AM EDT 09/12/2018 10:41 AM EDT Narrative [facility] - 09/12/2018 10:56 AM EDT Added by Discern Expert [facility] Historical Provider LAB BLOOD ORDERABLES Fi nal Result [facility] [address] [place] [address], [facility] [phone] * (ABNORMAL) CMP COMPREHENSIVE METABOLIC PANEL ([facility] BKR DATA CONV) (09/12/2018 5:02 AM EDT) Sodium Level 147(H) 136 - 146 mmol/L 09/12/2018 11:15 AM EDT Comment:Released without rep eat. Potassium Level 3.5 3.5 - 5.1 mmol/L 09/12/2018 11:15 AM EDT Chloride Level 114(H) 102 - 112 mmol/L 09/12/2018 11:15 AM EDT Carbon Dioxide Level 28 21 - 32 mmol/L 09/12/2018 11:15 AM EDT Anion Gap 8(L) 9 - 20 09/12/2018 11:15 AM EDT Calcium Level 8.4 8.4 - 10.1 mg/dL 09/12/2018 11:15 AM EDT Glucose Level 80 74 - 106 mg/dL 09/12/2018 11:15 AM EDT Comment: Xumii has become aware of sulfasalazine and sulfapyridine [...] administration of the drug. Blood Urea Nitrogen 29(H) 7 - 22 mg/dL 09/12/2018 11:15 AM EDT Creatinine Level 1.50(H) 0.55 - 1.02 mg/dL 09/12/2018 11:15 AM EDT Bun/Creatinine 19.3 8.0 - 20.0 09/12/2018 11:15 AM EDT Albumin Level 2.6(L) 3.4 - 5.0 Gram/dL 09/12/2018 11:15 AM EDT Comment:Released without rep eat. Protein, Total 4.8(L) 6.4 - 8.2 Gram/dL 09/12/2018 11:15 AM EDT A/G Ratio 1.2 1.1 - 2.5 09/12/2018 11:15 AM EDT Alk Phos 95 27 - 136 Units/Lit er 09/12/2018 11:15 AM EDT ALT 7(L) 13 - 56 Units/Lit er 09/12/2018 11:15 AM EDT Comment: Xumii has become aware of sulfasalazine and sulfapyridine [...] prior to administration of the drug. AST 14 5 - 37 Units/Lit er 09/12/2018 11:15 AM EDT Comment: Xumii has become aware of sulfasalazine and sulfapyridine [...] to administration of the drug. Bilirubin, Total 0.5 0.2 - 1.2 mg/dL 09/12/2018 11:15 AM EDT Globulin 2.2 1.5 - 4.5 Gram/dL 09/12/2018 11:15 AM EDT eGFR 42(L) >=60 mL/min/1. 73m2 09/12/2018 11:32 AM EDT Comment: GFR <60 suggests chronic kidney disease, if found over 3 month period. GFR <15 indicates renal failure. eGFR NonAfrican 35(L) >=60 mL/min/1. 73m2 09/12/2018 11:32 AM EDT Comment: GFR <60 suggests chronic kidney disease, if found over 3 month period. GFR <15 indicates renal failure. Blood 09/12/2018 5:02 AM EDT 09/12/2018 10:41 AM EDT [facility] Historical Provider LAB BLOOD ORDERABLES Fi nal Result [facility] [address] [place], [place] [address] [phone] * (ABNORMAL) BMP BASIC METABOLIC PANEL ([facility] BKR DATA CONV) (09/11/2018 4:12 AM EDT) Glucose Level 79 74 - 106 mg/dL 09/11/2018 10:44 AM EDT Comment: Xumii has become aware of sulfasalazine and sulfapyridine [...] administration of the drug. Blood Urea Nitrogen 30(H) 7 - 22 mg/dL 09/11/2018 10:44 AM EDT Creatinine Level 1.50(H) 0.55 - 1.02 mg/dL 09/11/2018 10:44 AM EDT Sodium Level 147(H) 136 - 146 mmol/L 09/11/2018 10:44 AM EDT Potassium Level 3.3(L) 3.5 - 5.1 mmol/L 09/11/2018 10:44 AM EDT Chloride Level 112 102 - 112 mmol/L 09/11/2018 10:44 AM EDT Carbon Dioxide Level 29 21 - 32 mmol/L 09/11/2018 10:44 AM EDT Anion Gap 9 9 - 20 09/11/2018 10:44 AM EDT Calcium Level 8.5 8.4 - 10.1 mg/dL 09/11/2018 10:44 AM EDT Bun/Creatinine 20.0 8.0 - 20.0 09/11/2018 10:44 AM EDT eGFR NonAfrican 35(L) >=60 mL/min/1. 73m2 09/11/2018 10:48 AM EDT Comment: GFR <60 suggests chronic kidney disease, if found over 3 month period. GFR <15 indicates renal failure. eGFR 42(L) >=60 mL/min/1. 73m2 09/11/2018 10:48 AM EDT Comment: GFR <60 suggests chronic kidney disease, if found over 3 month period. GFR <15 indicates renal failure. Blood 09/11/2018 4:12 AM EDT 09/11/2018 10:26 AM EDT [facility] Historical Provider LAB BLOOD ORDERABLES Fi nal Result [facility] [address] [phone] * Platelet count (09/10/2018 8:00 PM EDT) Platelet Count 350 163 - 369 K/uL 09/11/2018 1:10 AM EDT Blood 09/10/2018 8:00 PM EDT 09/11/2018 1:[address] [facility] Provider LAB BLOOD ORDERABLES Fi nal Result Performing Organization Address [facility] Co de Phone Number [facility] [address] [phone] * (ABNORMAL) BMP BASIC METABOLIC PANEL ([facility] BKR DATA CONV) (09/10/2018 4:55 AM EDT) [facility] Glucose Level 80 74 - 106 mg/dL 09/10/2018 10:51 AM EDT Comment: Xumii has become aware of sulfasalazine and sulfapyridine [...] administration of the drug. Blood Urea Nitrogen 26(H) 7 - 22 mg/dL 09/10/2018 10:51 AM EDT Creatinine Level 1.60(H) 0.55 - 1.02 mg/dL 09/10/2018 10:51 AM EDT Sodium Level 145 136 - 146 mmol/L 09/10/2018 10:51 AM EDT Potassium Level 3.3(L) 3.5 - 5.1 mmol/L 09/10/2018 10:51 AM EDT Chloride Level 111 102 - 112 mmol/L 09/10/2018 10:51 AM EDT Carbon Dioxide Level 29 21 - 32 mmol/L 09/10/2018 10:51 AM EDT Anion Gap 8(L) 9 - 20 09/10/2018 10:51 AM EDT Calcium Level 8.5 8.4 - 10.1 mg/dL 09/10/2018 10:51 AM EDT Bun/Creatinine 16.2 8.0 - 20.0 09/10/2018 10:51 AM EDT eGFR NonAfrican 32(L) >=60 mL/min/1. 73m2 09/10/2018 10:52 AM EDT Comment: GFR <60 suggests chronic kidney disease, if found over 3 month period. GFR <15 indicates renal failure. eGFR 39(L) >=60 mL/min/1. 73m2 09/10/2018 10:52 AM EDT Comment: GFR <60 suggests chronic kidney disease, if found over 3 month period. GFR <15 indicates renal failure. Blood 09/10/2018 4:55 AM EDT 09/10/2018 10:35 AM EDT [facility] Historical Provider LAB BLOOD ORDERABLES Fi nal Result Performing Organization Address City/State/[facility] Co de Phone Number [facility] [address] [place] [address] * (ABNORMAL) AUTOMATED DIFFERENTIAL ([facility] BKR DATA CONV) (09/09/2018 4:51 AM EDT) Neut% 67.4 34.0 - 71.0 % 09/09/2018 9:25 AM EDT Lymph% 14.1(L) 19.3 - 53.1 % 09/09/2018 9:25 AM EDT Gregg% 9.6(H) 3.0 - 9.0 % 09/09/2018 9:25 AM EDT Eos% 6.5 0.0 - 7.0 % 09/09/2018 9:25 AM EDT Baso% 0.8 0.0 - 1.5 % 09/09/2018 9:25 AM EDT IG% 1.60(H) 0.00 - 0.60 % 09/09/2018 9:25 AM EDT Neut# 4.78 1.56 - 6.13 K/uL 09/09/2018 9:25 AM EDT Lymph# 1.00 1.00 - 3.90 x10(3)/uL 09/09/2018 9:25 AM EDT Gregg# 0.68 0.16 - 1.00 K/uL 09/09/2018 9:25 AM EDT Eos# 0.46 0.00 - 0.80 x10(3)/uL 09/09/2018 9:25 AM EDT Baso# 0.06 0.00 - 0.20 x10(3)/uL 09/09/2018 9:25 AM EDT IG# 0.11(H) 0.00 - 0.05 x10(3)/uL 09/09/2018 9:25 AM EDT Blood 09/09/2018 4:51 AM EDT 09/09/2018 9:22 AM EDT Narrative [facility] - 09/09/2018 9:26 AM EDT Added by Discern Expert us [facility] Provider LAB BLOOD ORDERABLES Fi nal Result [facility] [address] [place] [address] * (ABNORMAL) CBC W/ AUTO DIFF ([facility] BKR DATA CONV) (09/09/2018 4:51 AM EDT) WBC 7.1 4.5 - 10.5 K/uL 09/09/2018 9:25 AM EDT RBC 2.76(L) 3.93 - 5.22 Million/uL 09/09/2018 9:25 AM EDT Hgb 8.1(L) 11.2 - 15.7 g/dL 09/09/2018 9:25 AM EDT Hct 25.3(L) 34.1 - 44.9 % 09/09/2018 9:25 AM EDT MCV 91.7 79.0 - 94.8 fL 09/09/2018 9:25 AM EDT MCH 29.3 25.6 - 32.2 pg 09/09/2018 9:25 AM EDT MCHC 32.0(L) 32.2 - 36.5 Gram/dL 09/09/2018 9:25 AM EDT RDW 17.6(H) 11.7 - 14.9 % 09/09/2018 9:25 AM EDT Platelet Count 321 163 - 369 K/uL 09/09/2018 9:25 AM EDT MPV 10.5 9.4 - 12.4 fL 09/09/2018 9:25 AM EDT Slide Review No 09/09/2018 9:26 AM EDT Blood 09/09/2018 4:51 AM EDT 09/09/2018 9:22 AM EDT us [facility] Historical Provider LAB BLOOD ORDERABLES Fi nal Result [facility] [address] [phone] * (ABNORMAL) CMP COMPREHENSIVE METABOLIC PANEL ([facility] BKR DATA CONV) (09/09/2018 4:51 AM EDT) Sodium Level 146 136 - 146 mmol/L 09/09/2018 10:07 AM EDT Potassium Level 3.1(L) 3.5 - 5.1 mmol/L 09/09/2018 10:07 AM EDT Chloride Level 110 102 - 112 mmol/L 09/09/2018 10:07 AM EDT Carbon Dioxide Level 29 21 - 32 mmol/L 09/09/2018 10:07 AM EDT Anion Gap 10 9 - 20 09/09/2018 10:07 AM EDT Calcium Level 9.1 8.4 - 10.1 mg/dL 09/09/2018 10:07 AM EDT Glucose Level 86 74 - 106 mg/dL 09/09/2018 10:07 AM EDT Comment: Xumii has become aware of sulfasalazine and sulfapyridine [...] administration of the drug. Blood Urea Nitrogen 30(H) 7 - 22 mg/dL 09/09/2018 10:07 AM EDT Creatinine Level 1.60(H) 0.55 - 1.02 mg/dL 09/09/2018 10:07 AM EDT Bun/Creatinine 17.6 8.0 - 20.0 09/09/2018 10:07 AM EDT Albumin Level 3.3(L) 3.4 - 5.0 Gram/dL 09/09/2018 10:07 AM EDT Protein, Total 5.4(L) 6.4 - 8.2 Gram/dL 09/09/2018 10:07 AM EDT A/G Ratio 1.6 1.1 - 2.5 09/09/2018 10:07 AM EDT Alk Phos 77 27 - 136 Units/Lit er 09/09/2018 10:07 AM EDT ALT 8(L) 13 - 56 Units/Lit er 09/09/2018 10:07 AM EDT Comment: Xumii has become aware of sulfasalazine and sulfapyridine [...] prior to administration of the drug. AST 11 5 - 37 Units/Lit er 09/09/2018 10:07 AM EDT Comment: Xumii has become aware of sulfasalazine and sulfapyridine [...] to administration of the drug. Bilirubin, Total 0.8 0.2 - 1.2 mg/dL 09/09/2018 10:07 AM EDT Globulin 2.1 1.5 - 4.5 Gram/dL 09/09/2018 10:07 AM EDT eGFR 39(L) >=60 mL/min/1. 73m2 09/09/2018 10:10 AM EDT Comment: GFR <60 suggests chronic kidney disease, if found over 3 month period. GFR <15 indicates renal failure. eGFR NonAfrican 32(L) >=60 mL/min/1. 73m2 09/09/2018 10:10 AM EDT Comment: GFR <60 suggests chronic kidney disease, if found over 3 month period. GFR <15 indicates renal failure. Blood 09/09/2018 4:51 AM EDT 09/09/2018 9:24 AM EDT [facility] Historical Provider LAB BLOOD ORDERABLES nal Result [facility] [address] [place] [address], [facility] [phone] * (ABNORMAL) AUTOMATED DIFFERENTIAL ([facility] BKR DATA CONV) (09/08/2018 4:37 AM EDT) Neut% 64.8 34.0 - 71.0 % 09/08/2018 8:51 AM EDT Lymph% 16.6(L) 19.3 - 53.0 % 09/08/2018 8:51 AM EDT Gregg% 8.9 4.7 - 12.5 % 09/08/2018 8:51 AM EDT Eos% 6.8 1.0 - 7.0 % 09/08/2018 8:51 AM EDT Baso% 0.9 0.0 - 1.0 % 09/08/2018 8:51 AM EDT IG% 2(H) 0 - 1 % 09/08/2018 8:51 AM EDT Neut# 4.57 1.56 - 6.13 K/uL 09/08/2018 8:51 AM EDT Lymph# 1.17(L) 1.18 - 3.74 K/uL 09/08/2018 8:51 AM EDT Gregg# 0.63 0.24 - 0.82 K/uL 09/08/2018 8:51 AM EDT Eos# 0.48 0.04 - 0.54 K/uL 09/08/2018 8:51 AM EDT Baso# 0.06 0.01 - 0.08 K/uL 09/08/2018 8:51 AM EDT IG# 0 0 - 0 x10(3)/uL 09/08/2018 8:51 AM EDT Blood 09/08/2018 4:37 AM EDT 09/08/2018 8:47 AM EDT Narrative [facility] - 09/08/2018 8:58 AM EDT Added by Discern Expert [facility] Historical Provider LAB BLOOD ORDERABLES Fi nal Result [facility] [address] [place], [place] [address] [phone] * (ABNORMAL) Renal function panel (09/08/2018 4:37 AM EDT) Sodium Level 148(H) 136 - 146 mmol/L 09/08/2018 9:17 AM EDT Potassium Level 3.6 3.5 - 5.1 mmol/L 09/08/2018 9:17 AM EDT Chloride Level 112 102 - 112 mmol/L 09/08/2018 9:17 AM EDT Carbon Dioxide Level 28 21 - 32 mmol/L 09/08/2018 9:17 AM EDT Anion Gap 12 9 - 20 09/08/2018 9:17 AM EDT Calcium Level 8.1(L) 8.5 - 10.1 mg/dL 09/08/2018 9:17 AM EDT Glucose Level 84 74 - 106 mg/dL 09/08/2018 9:17 AM EDT Comment: [facility] has become aware of sulfasalazine and sulfapyridine [...] administration of the drug. Blood Urea Nitrogen 26(H) 7 - 22 mg/dL 09/08/2018 9:17 AM EDT Creatinine Level 1.71(H) 0.55 - 1.02 mg/dL 09/08/2018 9:17 AM EDT Bun/Creatinine 15.2 8.0 - 20.0 09/08/2018 9:17 AM EDT Albumin Level 2.8(L) 3.4 - 5.0 Gram/dL 09/08/2018 9:17 AM EDT Phosphorus 3.3 2.3 - 4.9 mg/dL 09/08/2018 9:17 AM EDT Comment: Reference Range changed affective 04-19-15: Previous Range 2.5-4.9 mg/dl NEW Range 2.6-4.7 mg/dl eGFR 36(L) >=60 mL/min/1. 73m2 09/08/2018 9:17 AM EDT Comment: GFR <60 suggests chronic kidney disease, if found over 3 month period. GFR <15 indicates renal failure. eGFR NonAfrican 30(L) >=60 mL/min/1. 73m2 09/08/2018 9:17 AM EDT Comment: GFR <60 suggests chronic kidney disease, if found over 3 month period. GFR <15 indicates renal failure. Blood 09/08/2018 4:37 AM EDT 09/08/2018 8:[address] [facility] Provider LAB BLOOD ORDERABLES Fi nal Result Performing Organization Address City/[facility]/ZIP Co de Phone Number [facility] [address] [place] [address] * MAGNESIUM LEVEL ([facility] BKR DATA CONV) (09/08/2018 4:37 AM EDT) Magnesium Level 1.8 1.5 - 2.4 mg/dL 09/08/2018 9:17 AM EDT Blood 09/08/2018 4:37 AM EDT 09/08/2018 8:[address] [facility] Provider LAB BLOOD ORDERABLES Fi nal Result Performing Organization Address City/[facility]/ZIP Co de Phone Number [facility] [address] [phone] * (ABNORMAL) CBC W/ AUTO DIFF ([facility] BKR DATA CONV) (09/08/2018 4:37 AM EDT) WBC 7.0 3.9 - 10.0 K/uL 09/08/2018 8:51 AM EDT RBC 2.65(L) 3.93 - 5.22 Million/uL 09/08/2018 8:51 AM EDT Comment: No Red Blood Cell [...] 5.22 Hgb 7.6(L) 11.2 - 15.7 Gram/dL 09/08/2018 8:51 AM EDT Comment: No Hemoglobin reference ranges [...] ??12 ??Years ??150 ??Years ??11.2 15.7 Hct 25.1(L) 34.1 - 44.9 % 09/08/2018 8:51 AM EDT Comment: No Hematocrit reference ranges [...] ??12 ??Years ??150 ??Years ??34.1 44.9 MCV 94.7 79.0 - 94.8 fL 09/08/2018 8:51 AM EDT MCH 28.7 25.6 - 32.2 pg 09/08/2018 8:51 AM EDT MCHC 30.3(L) 32.3 - 36.5 Gram/dL 09/08/2018 8:51 AM EDT RDW 17.2(H) 11.6 - 14.4 % 09/08/2018 8:51 AM EDT Platelet Count 287 163 - 369 K/uL 09/08/2018 8:51 AM EDT MPV 10.1 9.4 - 12.4 fL 09/08/2018 8:51 AM EDT Slide Review No 09/08/2018 8:58 AM EDT Blood 09/08/2018 4:37 AM EDT 09/08/2018 8:47 AM EDT [facility] Historical Provider LAB BLOOD ORDERABLES nal Result [facility] [address] [phone] * (ABNORMAL) CBC W/ AUTO DIFF ([facility] BKR DATA CONV) (09/07/2018 4:43 AM EDT) WBC 6.4 3.9 - 10.0 K/uL 09/07/2018 8:54 AM EDT RBC 2.56(L) 3.93 - 5.22 Million/uL 09/07/2018 8:54 AM EDT Comment: No Red Blood Cell [...] ??12 ??Years ??150 ??Years ??3.93 5.22 Hgb 7.5(L) 11.2 - 15.7 Gram/dL 09/07/2018 8:54 AM EDT Comment: No Hemoglobin reference ranges [...] ??12 ??Years ??150 ??Years ??11.2 15.7 Hct 23.8(L) 34.1 - 44.9 % 09/07/2018 8:54 AM EDT Comment: No Hematocrit reference ranges [...] ??12 ??Years ??150 ??Years ??34.1 44.9 MCV 93.0 79.0 - 94.8 fL 09/07/2018 8:54 AM EDT MCH 29.3 25.6 - 32.2 pg 09/07/2018 8:54 AM EDT MCHC 31.5(L) 32.3 - 36.5 Gram/dL 09/07/2018 8:54 AM EDT RDW 16.6(H) 11.6 - 14.4 % 09/07/2018 8:54 AM EDT Platelet Count 267 163 - 369 K/uL 09/07/2018 8:54 AM EDT MPV 10.2 9.4 - 12.4 fL 09/07/2018 8:54 AM EDT Slide Review No 09/07/2018 9:04 AM EDT Blood 09/07/2018 4:43 AM EDT 09/07/2018 8:51 AM EDT [facility] Historical Provider LAB BLOOD ORDERABLES Fi nal Result Performing Organization Address City/State/[facility] Co de Phone Number [facility] [address] [place] [address] * (ABNORMAL) AUTOMATED DIFFERENTIAL ([facility] BKR DATA CONV) (09/07/2018 4:43 AM EDT) Neut% 61.8 34.0 - 71.0 % 09/07/2018 8:54 AM EDT Lymph% 19.2(L) 19.3 - 53.0 % 09/07/2018 8:54 AM EDT Gregg% 9.1 4.7 - 12.5 % 09/07/2018 8:54 AM EDT Eos% 7.2(H) 1.0 - 7.0 % 09/07/2018 8:54 AM EDT Baso% 0.8 0.0 - 1.0 % 09/07/2018 8:54 AM EDT IG% 2(H) 0 - 1 % 09/07/2018 8:54 AM EDT Neut# 3.94 1.56 - 6.13 K/uL 09/07/2018 8:54 AM EDT Lymph# 1.22 1.18 - 3.74 K/uL 09/07/2018 8:54 AM EDT Gregg# 0.58 0.24 - 0.82 K/uL 09/07/2018 8:54 AM EDT Eos# 0.46 0.04 - 0.54 K/uL 09/07/2018 8:54 AM EDT Baso# 0.05 0.01 - 0.08 K/uL 09/07/2018 8:54 AM EDT IG# 0 0 - 0 x10(3)/uL 09/07/2018 8:54 AM EDT Blood 09/07/2018 4:43 AM EDT 09/07/2018 8:51 AM EDT Narrative [facility] - 09/07/2018 9:04 AM EDT Added by Discern Expert [facility] Historical Provider LAB BLOOD ORDERABLES Fi nal Result [facility] [address] [phone] * (ABNORMAL) CMP COMPREHENSIVE METABOLIC PANEL ([facility] BKR DATA CONV) (09/07/2018 4:43 AM EDT) Sodium Level 145 136 - 146 mmol/L 09/07/2018 9:24 AM EDT Potassium Level 3.0(L) 3.5 - 5.1 mmol/L 09/07/2018 9:24 AM EDT Chloride Level 111 102 - 112 mmol/L 09/07/2018 9:24 AM EDT Carbon Dioxide Level 27 21 - 32 mmol/L 09/07/2018 9:24 AM EDT Anion Gap 10 9 - 20 09/07/2018 9:24 AM EDT Calcium Level 8.2(L) 8.5 - 10.1 mg/dL 09/07/2018 9:24 AM EDT Glucose Level 86 74 - 106 mg/dL 09/07/2018 9:24 AM EDT Comment: [employer] has become aware of sulfasalazine and sulfapyridine [...] administration of the drug. Blood Urea Nitrogen 29(H) 7 - 22 mg/dL 09/07/2018 9:24 AM EDT Creatinine Level 1.76(H) 0.55 - 1.02 mg/dL 09/07/2018 9:24 AM EDT Bun/Creatinine 16.5 8.0 - 20.0 09/07/2018 9:24 AM EDT Albumin Level 3.0(L) 3.4 - 5.0 Gram/dL 09/07/2018 9:24 AM EDT Protein, Total 5.0(L) 6.4 - 8.2 Gram/dL 09/07/2018 9:24 AM EDT A/G Ratio 1.5 1.1 - 2.5 09/07/2018 9:24 AM EDT Alk Phos 60 27 - 136 Units/Lit er 09/07/2018 9:24 AM EDT ALT 9(L) 12 - 78 Units/Lit er 09/07/2018 9:24 AM EDT Comment: [employer] has become aware of sulfasalazine and sulfapyridine [...] prior to administration of the drug. AST 10 5 - 37 Units/Lit er 09/07/2018 9:24 AM EDT Comment: [employer] has become aware of sulfasalazine and sulfapyridine [...] to administration of the drug. Bilirubin, Total 0.5 0.2 - 1.3 mg/dL 09/07/2018 9:24 AM EDT Globulin 2.0 1.5 - 4.5 Gram/dL 09/07/2018 9:24 AM EDT eGFR 35(L) >=60 mL/min/1. 73m2 09/07/2018 9:24 AM EDT Comment: GFR <60 suggests chronic kidney disease, if found over 3 month period. GFR <15 indicates renal failure. eGFR NonAfrican 29(L) >=60 mL/min/1. 73m2 09/07/2018 9:24 AM EDT Comment: GFR <60 suggests chronic kidney disease, if found over 3 month period. GFR <15 indicates renal failure. Blood 09/07/2018 4:43 AM EDT 09/07/2018 8:51 AM EDT [facility] Historical Provider LAB BLOOD ORDERABLES Fi nal Result [facility] [address] [place] [address] * (ABNORMAL) AUTOMATED DIFFERENTIAL ([facility] BKR DATA CONV) (09/06/2018 5:39 AM EDT) Neut% 60.5 34.0 - 71.0 % 09/06/2018 10:13 AM EDT Lymph% 18.2(L) 19.3 - 53.0 % 09/06/2018 10:13 AM EDT Gregg% 10.3 4.7 - 12.5 % 09/06/2018 10:13 AM EDT Eos% 8.8(H) 1.0 - 7.0 % 09/06/2018 10:13 AM EDT Baso% 0.7 0.0 - 1.0 % 09/06/2018 10:13 AM EDT IG% 2(H) 0 - 1 % 09/06/2018 10:13 AM EDT Neut# 4.34 1.56 - 6.13 K/uL 09/06/2018 10:13 AM EDT Lymph# 1.31 1.18 - 3.74 K/uL 09/06/2018 10:13 AM EDT Gregg# 0.74 0.24 - 0.82 K/uL 09/06/2018 10:13 AM EDT Eos# 0.63(H) 0.04 - 0.54 K/uL 09/06/2018 10:13 AM EDT Baso# 0.05 0.01 - 0.08 K/uL 09/06/2018 10:13 AM EDT IG# 0 0 - 0 x10(3)/uL 09/06/2018 10:13 AM EDT Blood 09/06/2018 5:39 AM EDT 09/06/2018 10:08 AM EDT Narrative [facility] - 09/06/2018 10:13 AM EDT Added by Discern Expert us [facility] Historical Provider LAB BLOOD ORDERABLES Fi nal Result [facility] [address] [place] [address], [facility] [phone] * (ABNORMAL) CBC W/ AUTO DIFF ([facility] BKR DATA CONV) (09/06/2018 5:39 AM EDT) [facility] WBC 7.2 3.9 - 10.0 K/uL 09/06/2018 10:13 AM EDT RBC 2.67(L) 3.93 - 5.22 Million/uL 09/06/2018 10:13 AM EDT Comment: No Red Blood Cell [...] ??12 ??Years ??150 ??Years ??3.93 5.22 Hgb 7.7(L) 11.2 - 15.7 Gram/dL 09/06/2018 10:13 AM EDT Comment: No Hemoglobin reference ranges [...] ??12 ??Years ??150 ??Years ??11.2 15.7 Hct 24.8(L) 34.1 - 44.9 % 09/06/2018 10:13 AM EDT Comment: No Hematocrit reference ranges [...] ??12 ??Years ??150 ??Years ??34.1 44.9 MCV 92.9 79.0 - 94.8 fL 09/06/2018 10:13 AM EDT MCH 28.8 25.6 - 32.2 pg 09/06/2018 10:13 AM EDT MCHC 31.0(L) 32.3 - 36.5 Gram/dL 09/06/2018 10:13 AM EDT RDW 16.4(H) 11.6 - 14.4 % 09/06/2018 10:13 AM EDT Platelet Count 280 163 - 369 K/uL 09/06/2018 10:13 AM EDT MPV 10.6 9.4 - 12.4 fL 09/06/2018 10:13 AM EDT Slide Review No 09/06/2018 10:13 AM EDT Blood 09/06/2018 5:39 AM EDT 09/06/2018 10:08 AM EDT us [facility] Historical Provider LAB BLOOD ORDERABLES Fi nal Result [facility] 1 [place] [address], [facility] [phone] * (ABNORMAL) CMP COMPREHENSIVE METABOLIC PANEL ([facility] BKR DATA CONV) (09/06/2018 5:39 AM EDT) Sodium Level 146 136 - 146 mmol/L 09/06/2018 10:31 AM EDT Potassium Level 3.3(L) 3.5 - 5.1 mmol/L 09/06/2018 10:31 AM EDT Chloride Level 112 102 - 112 mmol/L 09/06/2018 10:31 AM EDT Carbon Dioxide Level 27 21 - 32 mmol/L 09/06/2018 10:31 AM EDT Anion Gap 10 9 - 20 09/06/2018 10:31 AM EDT Calcium Level 7.9(L) 8.5 - 10.1 mg/dL 09/06/2018 10:31 AM EDT Glucose Level 86 74 - 106 mg/dL 09/06/2018 10:31 AM EDT Comment: [employer] has become aware of sulfasalazine and sulfapyridine [...] Urea Nitrogen 24(H) 7 - 22 mg/dL 09/06/2018 10:31 AM EDT Creatinine Level 1.79(H) 0.55 - 1.02 mg/dL 09/06/2018 10:31 AM EDT Bun/Creatinine 13.4 8.0 - 20.0 09/06/2018 10:31 AM EDT Albumin Level 2.3(L) 3.4 - 5.0 Gram/dL 09/06/2018 10:31 AM EDT Protein, Total 4.5(L) 6.4 - 8.2 Gram/dL 09/06/2018 10:31 AM EDT A/G Ratio 1.0(L) 1.1 - 2.5 09/06/2018 10:31 AM EDT Alk Phos 62 27 - 136 Units/Lit er 09/06/2018 10:31 AM EDT ALT 11(L) 12 - 78 Units/Lit er 09/06/2018 10:31 AM EDT Comment: [employer] has become aware of sulfasalazine and sulfapyridine [...] AST 12 5 - 37 Units/Lit er 09/06/2018 10:31 AM EDT Comment: [employer] has become aware of sulfasalazine and sulfapyridine [...] to administration of the drug. Bilirubin, Total 0.4 0.2 - 1.3 mg/dL 09/06/2018 10:31 AM EDT Globulin 2.2 1.5 - 4.5 Gram/dL 09/06/2018 10:31 AM EDT eGFR 35(L) >=60 mL/min/1. 73m2 09/06/2018 10:31 AM EDT Comment: GFR <60 suggests chronic kidney disease, if found over 3 month period. GFR <15 indicates renal failure. eGFR NonAfrican 29(L) >=60 mL/min/1. 73m2 09/06/2018 10:31 AM EDT Comment: GFR <60 suggests chronic kidney disease, if found over 3 month period. GFR <15 indicates renal failure. Blood 09/06/2018 5:39 AM EDT 09/06/2018 10:18 AM EDT [facility] Historical Provider LAB BLOOD ORDERABLES Fi nal Result [facility] [address] [phone] * (ABNORMAL) POTASSIUM, SERUM (09/05/2018 8:39 AM EDT) Potassium Level 3.2(L) 3.5 - 5.1 mmol/L 09/05/2018 1:01 PM EDT Blood 09/05/2018 8:39 AM EDT 09/05/2018 12:46 PM EDT [facility] Historical Provider PATHOLOGY/CYTOLOGY ORDE SHAQ Final Result [facility] [address] [phone] * CK CREATINE KINASE ([facility] BKR DATA CONV) (09/05/2018 6:05 AM EDT) Pathologist [facility] CK 34 26 - 192 Units/Lite r 09/05/2018 11:08 AM EDT Comment: No CK reference ranges defined for patients with an ? Unknown? gender. Please apply existing Male/Female reference ranges as clinically indicated. Assay ? Sex ?Age from ?Units ?Age to ?Units ? Normal Low ?Normal High ?CK ?Male ? 0 ?Minutes ?150 ?Years ?39 ? 308 ?? CK ?Female ? 0 ?Minutes ?150 ?Years ? 26 ? 192 Blood 09/05/2018 6:05 AM EDT 09/05/2018 10:[address] [facility] Provider LAB BLOOD ORDERABLES Fi nal Result Performing Organization Address [facility] Co de Phone Number [facility] [address] [phone] * MAGNESIUM LEVEL ([facility] BKR DATA CONV) (09/05/2018 4:22 AM EDT) Magnesium Level 1.9 1.5 - 2.4 mg/dL 09/05/2018 9:12 AM EDT Blood 09/05/2018 4:22 AM EDT 09/05/2018 8:[address] [facility] Provider LAB BLOOD ORDERABLES Fi nal Result Performing Organization Address [facility] Co de Phone Number [facility] [address] [phone] * (ABNORMAL) AUTOMATED DIFFERENTIAL ([facility] BKR DATA CONV) (09/05/2018 4:22 AM EDT) Neut% 60.1 34.0 - 71.0 % 09/05/2018 8:41 AM EDT Lymph% 18.9(L) 19.3 - 53.0 % 09/05/2018 8:41 AM EDT Gregg% 10.2 4.7 - 12.5 % 09/05/2018 8:41 AM EDT Eos% 9.3(H) 1.0 - 7.0 % 09/05/2018 8:41 AM EDT Baso% 0.6 0.0 - 1.0 % 09/05/2018 8:41 AM EDT IG% 1 0 - 1 % 09/05/2018 8:41 AM EDT Neut# 3.99 1.56 - 6.13 K/uL 09/05/2018 8:41 AM EDT Lymph# 1.26 1.18 - 3.74 K/uL 09/05/2018 8:41 AM EDT Gregg# 0.68 0.24 - 0.82 K/uL 09/05/2018 8:41 AM EDT Eos# 0.62(H) 0.04 - 0.54 K/uL 09/05/2018 8:41 AM EDT Baso# 0.04 0.01 - 0.08 K/uL 09/05/2018 8:41 AM EDT IG# 0 0 - 0 x10(3)/uL 09/05/2018 8:41 AM EDT Blood 09/05/2018 4:22 AM EDT 09/05/2018 8:37 AM EDT Narrative [facility] - 09/05/2018 8:51 AM EDT Added by Discern Expert us [facility] Historical Provider LAB BLOOD ORDERABLES Fi nal Result [facility] [address] [place] [address], [facility] [phone] * (ABNORMAL) CBC W/ AUTO DIFF ([facility] BKR DATA CONV) (09/05/2018 4:22 AM EDT) WBC 6.6 3.9 - 10.0 K/uL 09/05/2018 8:41 AM EDT RBC 2.71(L) 3.93 - 5.22 Million/uL 09/05/2018 8:41 AM EDT Comment: No Red Blood Cell [...] ??12 ??Years ??150 ??Years ??3.93 5.22 Hgb 7.8(L) 11.2 - 15.7 Gram/dL 09/05/2018 8:41 AM EDT Comment: No Hemoglobin reference ranges [...] ??12 ??Years ??150 ??Years ??11.2 15.7 Hct 24.9(L) 34.1 - 44.9 % 09/05/2018 8:41 AM EDT Comment: No Hematocrit reference ranges [...] ??12 ??Years ??150 ??Years ??34.1 44.9 MCV 91.9 79.0 - 94.8 fL 09/05/2018 8:41 AM EDT MCH 28.8 25.6 - 32.2 pg 09/05/2018 8:41 AM EDT MCHC 31.3(L) 32.3 - 36.5 Gram/dL 09/05/2018 8:41 AM EDT RDW 16.3(H) 11.6 - 14.4 % 09/05/2018 8:41 AM EDT Platelet Count 222 163 - 369 K/uL 09/05/2018 8:41 AM EDT MPV 10.7 9.4 - 12.4 fL 09/05/2018 8:41 AM EDT Slide Review No 09/05/2018 8:51 AM EDT Blood 09/05/2018 4:22 AM EDT 09/05/2018 8:[address] [facility] Provider LAB BLOOD ORDERABLES Fi nal Result Performing Organization Address [facility] de Phone Number [facility] [address] [phone] * ESR SEDIMENTATION RATE AUTO ([facility] BKR DATA CONV) (09/05/2018 4:22 AM EDT) Sed Rate Auto 8 0 - 30 mm/Hr 09/05/2018 8:53 AM EDT Comment: No Sedimentation Rate reference ranges defined for patients with an ? Unknown? gender. Please apply existing Male/Female reference ranges as clinically indicated. Assay ?Sedimentation Rate Automated Male ??0 ??Minutes ??50 ??Years ??0 15 Female ??0 ??Minutes ??50 ??Years ??0 20 Male ??50 ??Years ??150 ??Years ??0 20 Female ??50 ??Years ??150 ??Years ??0 30 Blood 09/05/2018 4:22 AM EDT 09/05/2018 8:[address] [facility] Provider LAB BLOOD ORDERABLES Fi nal Result Performing Organization Address [facility] de Phone Number [facility] [address] [phone] * PHOSPHORUS (09/05/2018 4:22 AM EDT) Phosphorus 3.4 2.3 - 4.9 mg/dL 09/05/2018 9:12 AM EDT Comment: OKReference Range changed affective -15-16: Previous Range 2.5-4.9 mg/dl NEW Range 2.6-4.7 mg/dl Blood 09/05/2018 4:22 AM EDT 09/05/2018 8:[address] [facility] Provider MICROBIOLOGY - GENERAL ORDERABLES Final Result Performing Organization Address City/[facility] Co de Phone Number [facility] [address] [phone] * (ABNORMAL) CRP C-REACTIVE PROTEIN ([facility] BKR DATA CONV) (09/05/2018 4:22 AM EDT) Pathologist [facility] CRP 15.1(H) 0.0 - 0.9 mg/dL 09/05/2018 9:32 AM EDT Blood 09/05/2018 4:22 AM EDT 09/05/2018 8:[address] [facility] Provider LAB BLOOD ORDERABLES Fi nal Result Performing Organization Address [facility] Co de Phone Number [facility] [address] [phone] * (ABNORMAL) CMP COMPREHENSIVE METABOLIC PANEL ([facility] BKR DATA CONV) (09/05/2018 4:22 AM EDT) Sodium Level 143 136 - 146 mmol/L 09/05/2018 9:12 AM EDT Potassium Level 3.2(L) 3.5 - 5.1 mmol/L 09/05/2018 9:12 AM EDT Chloride Level 111 102 - 112 mmol/L 09/05/2018 9:12 AM EDT Carbon Dioxide Level 23 21 - 32 mmol/L 09/05/2018 9:12 AM EDT Anion Gap 12 9 - 20 09/05/2018 9:12 AM EDT Calcium Level 7.7(L) 8.5 - 10.1 mg/dL 09/05/2018 9:12 AM EDT Glucose Level 91 74 - 106 mg/dL 09/05/2018 9:12 AM EDT Comment: [employer] has become aware of sulfasalazine and sulfapyridine [...] administration of the drug. Blood Urea Nitrogen 26(H) 7 - 22 mg/dL 09/05/2018 9:12 AM EDT Creatinine Level 1.87(H) 0.55 - 1.02 mg/dL 09/05/2018 9:12 AM EDT Bun/Creatinine 13.9 8.0 - 20.0 09/05/2018 9:12 AM EDT Albumin Level 2.3(L) 3.4 - 5.0 Gram/dL 09/05/2018 9:12 AM EDT Protein, Total 4.6(L) 6.4 - 8.2 Gram/dL 09/05/2018 9:12 AM EDT A/G Ratio 1.0(L) 1.1 - 2.5 09/05/2018 9:12 AM EDT Alk Phos 60 27 - 136 Units/Lit er 09/05/2018 9:12 AM EDT ALT 10(L) 12 - 78 Units/Lit er 09/05/2018 9:12 AM EDT Comment: [employer] has become aware of sulfasalazine and sulfapyridine [...] prior to administration of the drug. AST 9 5 - 37 Units/Lit er 09/05/2018 9:12 AM EDT Comment: [employer] has become aware of sulfasalazine and sulfapyridine [...] to administration of the drug. Bilirubin, Total 0.5 0.2 - 1.3 mg/dL 09/05/2018 9:12 AM EDT Globulin 2.3 1.5 - 4.5 Gram/dL 09/05/2018 9:12 AM EDT eGFR 33(L) >=60 mL/min/1. 73m2 09/05/2018 9:12 AM EDT Comment: GFR <60 suggests chronic kidney disease, if found over 3 month period. GFR <15 indicates renal failure. eGFR NonAfrican 27(L) >=60 mL/min/1. 73m2 09/05/2018 9:12 AM EDT Comment: GFR <60 suggests chronic kidney disease, if found over 3 month period. GFR <15 indicates renal failure. Blood 09/05/2018 4:22 AM EDT 09/05/2018 8:37 AM EDT [facility] Historical Provider LAB BLOOD ORDERABLES Fi nal Result Performing Organization Address City/[facility]/ZIP Co de Phone Number [facility] [address] [phone] * (ABNORMAL) POTASSIUM, SERUM (09/04/2018 9:31 PM EDT) Potassium Level 3.1(L) 3.5 - 5.1 mmol/L 09/05/2018 1:47 AM EDT Blood 09/04/2018 9:31 PM EDT 09/05/2018 1:[address] [facility] Provider PATHOLOGY/CYTOLOGY ORDE RABLES Final Result [facility] [address] [phone] * (ABNORMAL) CMP COMPREHENSIVE METABOLIC PANEL ([facility] BKR DATA CONV) (09/04/2018 3:54 AM EDT) Sodium Level 146 136 - 146 mmol/L 09/04/2018 8:32 AM EDT Potassium Level 3.2(L) 3.5 - 5.1 mmol/L 09/04/2018 8:32 AM EDT Chloride Level 114(H) 102 - 112 mmol/L 09/04/2018 8:32 AM EDT Carbon Dioxide Level 23 21 - 32 mmol/L 09/04/2018 8:32 AM EDT Anion Gap 12 9 - 20 09/04/2018 8:32 AM EDT Calcium Level 7.6(L) 8.5 - 10.1 mg/dL 09/04/2018 8:32 AM EDT Glucose Level 94 74 - 106 mg/dL 09/04/2018 8:32 AM EDT Comment: [employer] has become aware of sulfasalazine and sulfapyridine [...] administration of the drug. Blood Urea Nitrogen 28(H) 7 - 22 mg/dL 09/04/2018 8:32 AM EDT Creatinine Level 1.90(H) 0.55 - 1.02 mg/dL 09/04/2018 8:32 AM EDT Bun/Creatinine 14.7 8.0 - 20.0 09/04/2018 8:32 AM EDT Albumin Level 2.0(L) 3.4 - 5.0 Gram/dL 09/04/2018 8:32 AM EDT Protein, Total 4.2(L) 6.4 - 8.2 Gram/dL 09/04/2018 8:32 AM EDT A/G Ratio 0.9(L) 1.1 - 2.5 09/04/2018 8:32 AM EDT Alk Phos 57 27 - 136 Units/Lit er 09/04/2018 8:32 AM EDT ALT 9(L) 12 - 78 Units/Lit er 09/04/2018 8:32 AM EDT Comment: [employer] has become aware of sulfasalazine and sulfapyridine [...] prior to administration of the drug. AST 13 5 - 37 Units/Lit er 09/04/2018 8:32 AM EDT Comment: [facility] has become aware of sulfasalazine and sulfapyridine [...] to administration of the drug. Bilirubin, Total 0.4 0.2 - 1.3 mg/dL 09/04/2018 8:32 AM EDT Globulin 2.2 1.5 - 4.5 Gram/dL 09/04/2018 8:32 AM EDT eGFR 32(L) >=60 mL/min/1. 73m2 09/04/2018 8:32 AM EDT Comment: GFR <60 suggests chronic kidney disease, if found over 3 month period. GFR <15 indicates renal failure. eGFR NonAfrican 27(L) >=60 mL/min/1. 73m2 09/04/2018 8:32 AM EDT Comment: GFR <60 suggests chronic kidney disease, if found over 3 month period. GFR <15 indicates renal failure. Blood 09/04/2018 3:54 AM EDT 09/04/2018 8:03 AM EDT [facility] Historical Provider LAB BLOOD ORDERABLES Fi nal Result [facility] [address] [phone] * (ABNORMAL) AUTOMATED DIFFERENTIAL ([facility] BKR DATA CONV) (09/04/2018 3:54 AM EDT) Neut% 65.9 34.0 - 71.0 % 09/04/2018 8:09 AM EDT Lymph% 14.1(L) 19.3 - 53.0 % 09/04/2018 8:09 AM EDT Gregg% 9.9 4.7 - 12.5 % 09/04/2018 8:09 AM EDT Eos% 9.6(H) 1.0 - 7.0 % 09/04/2018 8:09 AM EDT Baso% 0.4 0.0 - 1.0 % 09/04/2018 8:09 AM EDT IG% 0 0 - 1 % 09/04/2018 8:09 AM EDT Neut# 4.39 1.56 - 6.13 K/uL 09/04/2018 8:09 AM EDT Lymph# 0.94(L) 1.18 - 3.74 K/uL 09/04/2018 8:09 AM EDT Gregg# 0.66 0.24 - 0.82 K/uL 09/04/2018 8:09 AM EDT Eos# 0.64(H) 0.04 - 0.54 K/uL 09/04/2018 8:09 AM EDT Baso# 0.03 0.01 - 0.08 K/uL 09/04/2018 8:09 AM EDT IG# 0 0 - 0 x10(3)/uL 09/04/2018 8:09 AM EDT Blood 09/04/2018 3:54 AM EDT 09/04/2018 8:03 AM EDT Narrative [facility] - 09/04/2018 8:21 AM EDT Added by Discern Expert [facility] Historical Provider LAB BLOOD ORDERABLES Fi nal Result [facility] [address] [place] [address] * (ABNORMAL) CBC W/ AUTO DIFF ([facility] BKR DATA CONV) (09/04/2018 3:54 AM EDT) Pathologist [facility] WBC 6.7 3.9 - 10.0 K/uL 09/04/2018 8:09 AM EDT RBC 2.64(L) 3.93 - 5.22 Million/uL 09/04/2018 8:09 AM EDT Comment: No Red Blood Cell [...] ??12 ??Years ??150 ??Years ??3.93 5.22 Hgb 7.7(L) 11.2 - 15.7 Gram/dL 09/04/2018 8:09 AM EDT Comment: No Hemoglobin reference ranges [...] ??12 ??Years ??150 ??Years ??11.2 15.7 Hct 24.2(L) 34.1 - 44.9 % 09/04/2018 8:09 AM EDT Comment: No Hematocrit reference ranges [...] ??12 ??Years ??150 ??Years ??34.1 44.9 MCV 91.7 79.0 - 94.8 fL 09/04/2018 8:09 AM EDT MCH 29.2 25.6 - 32.2 pg 09/04/2018 8:09 AM EDT MCHC 31.8(L) 32.3 - 36.5 Gram/dL 09/04/2018 8:09 AM EDT RDW 16.1(H) 11.6 - 14.4 % 09/04/2018 8:09 AM EDT Platelet Count 170 163 - 369 K/uL 09/04/2018 8:09 AM EDT MPV 11.0 9.4 - 12.4 fL 09/04/2018 8:09 AM EDT Slide Review No 09/04/2018 8:21 AM EDT Blood 09/04/2018 3:54 AM EDT 09/04/2018 8:03 AM EDT [facility] Historical Provider LAB BLOOD ORDERABLES [facility] Result [facility] [address] [phone] * (ABNORMAL) CBC W/ AUTO DIFF ([facility] BKR DATA CONV) (09/03/2018 6:35 AM EDT) WBC 7.6 3.9 - 10.0 K/uL 09/03/2018 10:44 AM EDT RBC 2.78(L) 3.93 - 5.22 Million/uL 09/03/2018 10:44 AM EDT Comment: No Red Blood Cell [...] ??12 ??Years ??150 ??Years ??3.93 5.22 Hgb 8.1(L) 11.2 - 15.7 Gram/dL 09/03/2018 10:44 AM EDT Comment: No Hemoglobin reference ranges [...] ??12 ??Years ??150 ??Years ??11.2 15.7 Hct 24.9(L) 34.1 - 44.9 % 09/03/2018 10:44 AM EDT Comment: No Hematocrit reference ranges [...] ??12 ??Years ??150 ??Years ??34.1 44.9 MCV 89.6 79.0 - 94.8 fL 09/03/2018 10:44 AM EDT MCH 29.1 25.6 - 32.2 pg 09/03/2018 10:44 AM EDT MCHC 32.5 32.3 - 36.5 Gram/dL 09/03/2018 10:44 AM EDT RDW 16.0(H) 11.6 - 14.4 % 09/03/2018 10:44 AM EDT Platelet Count 162(L) 163 - 369 K/uL 09/03/2018 10:44 AM EDT MPV 10.9 9.4 - 12.4 fL 09/03/2018 10:44 AM EDT Slide Review No 09/03/2018 10:45 AM EDT Blood 09/03/2018 6:35 AM EDT 09/03/2018 10:[address] [facility] Historical Provider LAB BLOOD ORDERABLES Fi nal Result Performing Organization Address City/State/[facility] Co de Phone Number [facility] [address] [phone] * (ABNORMAL) AUTOMATED DIFFERENTIAL ([facility] BKR DATA CONV) (09/03/2018 6:35 AM EDT) Neut% 69.9 34.0 - 71.0 % 09/03/2018 10:44 AM EDT Lymph% 15.1(L) 19.3 - 53.0 % 09/03/2018 10:44 AM EDT Gregg% 9.8 4.7 - 12.5 % 09/03/2018 10:44 AM EDT Eos% 4.5 1.0 - 7.0 % 09/03/2018 10:44 AM EDT Baso% 0.4 0.0 - 1.0 % 09/03/2018 10:44 AM EDT IG% 0 0 - 1 % 09/03/2018 10:44 AM EDT Neut# 5.29 1.56 - 6.13 K/uL 09/03/2018 10:44 AM EDT Lymph# 1.14(L) 1.18 - 3.74 K/uL 09/03/2018 10:44 AM EDT Gregg# 0.74 0.24 - 0.82 K/uL 09/03/2018 10:44 AM EDT Eos# 0.34 0.04 - 0.54 K/uL 09/03/2018 10:44 AM EDT Baso# 0.03 0.01 - 0.08 K/uL 09/03/2018 10:44 AM EDT IG# 0 0 - 0 x10(3)/uL 09/03/2018 10:44 AM EDT Blood 09/03/2018 6:35 AM EDT 09/03/2018 10:35 AM EDT Narrative [facility] - 09/03/2018 10:45 AM EDT Added by Discern Expert us [facility] Historical Provider LAB BLOOD ORDERABLES Fi nal Result [facility] [address] [place] [address], [facility] [phone] * (ABNORMAL) CMP COMPREHENSIVE METABOLIC PANEL ([facility] BKR DATA CONV) (09/03/2018 6:35 AM EDT) Sodium Level 144 136 - 146 mmol/L 09/03/2018 11:11 AM EDT Potassium Level 3.6 3.5 - 5.1 mmol/L 09/03/2018 11:11 AM EDT Chloride Level 114(H) 102 - 112 mmol/L 09/03/2018 11:11 AM EDT Carbon Dioxide Level 23 21 - 32 mmol/L 09/03/2018 11:11 AM EDT Anion Gap 11 9 - 20 09/03/2018 11:11 AM EDT Calcium Level 6.9(L) 8.5 - 10.1 mg/dL 09/03/2018 11:11 AM EDT Glucose Level 84 74 - 106 mg/dL 09/03/2018 11:11 AM EDT Comment: Xumii has become aware of sulfasalazine and sulfapyridine [...] administration of the drug. Blood Urea Nitrogen 31(H) 7 - 22 mg/dL 09/03/2018 11:11 AM EDT Creatinine Level 1.95(H) 0.55 - 1.02 mg/dL 09/03/2018 11:11 AM EDT Bun/Creatinine 15.9 8.0 - 20.0 09/03/2018 11:11 AM EDT Albumin Level 1.7(L) 3.4 - 5.0 Gram/dL 09/03/2018 11:11 AM EDT Protein, Total 4.1(L) 6.4 - 8.2 Gram/dL 09/03/2018 11:11 AM EDT A/G Ratio 0.7(L) 1.1 - 2.5 09/03/2018 11:11 AM EDT Alk Phos 60 27 - 136 Units/Lit er 09/03/2018 11:11 AM EDT ALT 11(L) 12 - 78 Units/Lit er 09/03/2018 11:11 AM EDT Comment: Xumii has become aware of sulfasalazine and sulfapyridine [...] prior to administration of the drug. AST 14 5 - 37 Units/Lit er 09/03/2018 11:11 AM EDT Comment: Xumii has become aware of sulfasalazine and sulfapyridine [...] to administration of the drug. Bilirubin, Total 0.4 0.2 - 1.3 mg/dL 09/03/2018 11:11 AM EDT Globulin 2.4 1.5 - 4.5 Gram/dL 09/03/2018 11:11 AM EDT eGFR 31(L) >=60 mL/min/1. 73m2 09/03/2018 11:11 AM EDT Comment: GFR <60 suggests chronic kidney disease, if found over 3 month period. GFR <15 indicates renal failure. eGFR NonAfrican 26(L) >=60 mL/min/1. 73m2 09/03/2018 11:11 AM EDT Comment: GFR <60 suggests chronic kidney disease, if found over 3 month period. GFR <15 indicates renal failure. Blood 09/03/2018 6:35 AM EDT 09/03/2018 10:35 AM EDT [facility] Historical Provider LAB BLOOD ORDERABLES Fi nal Result Performing Organization Address [facility] de Phone Number [facility] [address] [phone] * Reticulocyte count (09/02/2018 10:17 PM EDT) Reticulocyte 2 0 - 2 % 09/03/2018 2:49 AM EDT Blood 09/02/2018 10:1 7 PM EDT 09/03/2018 2:[address] [facility] Provider LAB BLOOD ORDERABLES Fi nal Result Performing Organization Address [facility] de Phone Number [facility] [address] [phone] * FERRITIN (09/02/2018 10:15 PM EDT) Ferritin Level 169.0 8.0 - 252.0 ng/mL 09/03/2018 2:48 AM EDT Comment: No FERRITIN reference ranges defined for patients with an ? Unknown? gender. Please apply existing Male/Female reference ranges as clinically indicated. Assay ?Sex ?Age from ?Units ?Age to ?Units ? Normal Low ? Normal High FERRITIN ? Male ? 0 ?Minutes ?150 ?Years ?26 ? 388 FERRITIN ? Female ? 0 ?Minutes ?150 ?Years ? 8 ?252 Blood 09/02/2018 10:1 5 PM EDT 09/03/2018 2:27 AM EDT [facility] Historical Provider LAB BLOOD ORDERABLES Fi nal Result Performing Organization Address [facility] de Phone Number [facility] [address] [phone] * (ABNORMAL) IRON AND TIBC (09/02/2018 10:15 PM EDT) Iron Level 11(L) 50 - 170 mcg/dL 09/03/2018 2:49 AM EDT TIBC 104.0(L) 250.0 - 450.0 mcg/dL 09/03/2018 2:49 AM EDT %Iron Saturation 10.6(L) 15.0 - 55.0 % 09/03/2018 2:49 AM EDT Blood 09/02/2018 10:1 5 PM EDT 09/03/2018 2:27 AM EDT Result [facility] Historical Provider PATHOLOGY/CYTOLOGY ORDE RABLES Final Result Performing Organization Address [facility] Co de Phone Number [facility] [address] [phone] * VITAMIN B12 (09/02/2018 10:15 PM EDT) Vitamin B12 Level 296 193 - 986 pg/mL 09/03/2018 3:13 AM EDT Blood 09/02/2018 10:1 5 PM EDT 09/03/2018 2:27 AM EDT [facility] Historical Provider LAB BLOOD ORDERABLES Fi nal Result Performing Organization Address [facility] de Phone Number [facility] [address] [phone] * Folate (Folic Acid), Serum (09/02/2018 10:15 PM EDT) [facility] Folate Level 8.75 5.38 - 24.00 ng/mL 09/03/2018 3:23 AM EDT Blood 09/02/2018 10:1 5 PM EDT 09/03/2018 2:[address] [facility] Provider LAB BLOOD ORDERABLES Fi nal Result Performing Organization Address [facility] de Phone Number [facility] [address] [phone] * (ABNORMAL) TSH (09/02/2018 10:15 PM EDT) [facility] TSH 5.710(H) 0.358 - 3.740 mcInt Units/mL 09/03/2018 2:57 AM EDT Blood 09/02/2018 10:1 5 PM EDT 09/03/2018 2:27 AM EDT Result [facility] Provider LAB BLOOD ORDERABLES Fi nal Result Performing Organization Address [facility] de Phone Number [facility] [address] [phone] * (ABNORMAL) Hemoglobin and hematocrit (09/02/2018 8:51 PM EDT) [facility] Hgb 6.5(L) 11.2 - 15.7 Gram/dL 09/03/2018 12:58 AM EDT Comment: No Hemoglobin reference ranges [...] ??12 ??Years ??150 ??Years ??11.2 15.7 Hct 19.9(L) 34.1 - 44.9 % 09/03/2018 12:58 AM EDT Comment: No Hematocrit reference ranges [...] ??12 ??Years ??150 ??Years ??34.1 44.9 Blood 09/02/2018 8:51 PM EDT 09/03/2018 12:56 AM EDT [facility] Historical Provider LAB BLOOD ORDERABLES Fi nal Result [facility] [address] [phone] * RED BLOOD CELL PRODUCT ORDER ([facility] BKR DATA CONV) (09/02/2018 8:38 PM EDT) RBC Product Ready RBC Ready 09/03/2018 12:44 AM EDT #of Units 2 09/03/2018 12:38 AM EDT Date of Transfusion/Canela rg? awaiting H&H 09/03/2018 12:38 AM EDT Blood 09/02/2018 8:38 PM EDT 09/03/2018 12:43 AM EDT [facility] Historical Provider LAB BLOOD ORDERABLES Fi nal Result [facility] [address] [place] [id number], [facility] [phone] * (ABNORMAL) Hemoglobin and hematocrit (09/02/2018 7:11 PM EDT) Hgb 6.6(L) 11.2 - 15.7 Gram/dL 09/02/2018 11:50 PM EDT Comment: No Hemoglobin reference ranges defined [...] ??12 ??Years ??150 ??Years ??11.2 15.7 Hct 20.7(L) 34.1 - 44.9 % 09/02/2018 11:50 PM EDT Comment: No Hematocrit reference ranges defined [...] ??12 ??Years ??150 ??Years ??34.1 44.9 Blood 09/02/2018 7:11 PM EDT 09/02/2018 11:47 PM EDT [facility] Historical Provider LAB BLOOD ORDERABLES Fi nal Result Performing Organization Address [facility] Co de Phone Number [facility] [address] [phone] * RED BLOOD CELL PRODUCT ORDER ([facility] BKR DATA CONV) (09/02/2018 8:33 AM EDT) RBC Product Ready RBC Ready 09/02/2018 12:47 PM EDT #of Units 2 09/02/2018 12:34 PM EDT Date of Transfusion/Caenla rg? 09/02/2018 09/02/2018 12:34 PM EDT Blood 09/02/2018 8:33 AM EDT 09/02/2018 12:[address] [facility] Provider LAB BLOOD ORDERABLES Fi nal Result Performing Organization Address City/[facility] Co de Phone Number [facility] [address] [phone] * (ABNORMAL) Hemoglobin and hematocrit (09/02/2018 6:49 AM EDT) Hgb 5.0(AA) 11.2 - 15.7 Gram/dL 09/02/2018 11:56 AM EDT Comment: CALLED TO:lily alejandre DATE/TIME CALLED:_09/02/2018 08:02:09 EDT READ BACK AND VERIFIED:_yes CALLED BY: Cris Hemoglobin reference ranges defined for patients with [...] ??12 ??Years ??150 ??Years ??11.2 15.7 Hct 15.8(AA) 34.1 - 44.9 % 09/02/2018 11:56 AM EDT Comment: CALLED TO:lily alejandre DATE/TIME CALLED:_09/02/2018 08:02:42 EDT READ BACK AND VERIFIED:_yes CALLED BY: _toNo Hematocrit reference ranges defined for patients with [...] ??12 ??Years ??150 ??Years ??34.1 44.9 Blood 09/02/2018 6:49 AM EDT 09/02/2018 10:52 AM EDT Narrative [facility] - 09/02/2018 12:02 PM EDT Please recollect, specimen submitted is inappropriate for testing. contaminated us [facility] Historical Provider MD LAB BLOOD ORDERABLES Final Result [facility] [address] [place] [address], [facility] [phone] * (ABNORMAL) BMP BASIC METABOLIC PANEL ([facility] BKR DATA CONV) (09/02/2018 4:15 AM EDT) Glucose Level 98 74 - 106 mg/dL 09/02/2018 8:43 AM EDT Comment: Xumii has become aware of sulfasalazine and sulfapyridine [...] administration of the drug. Blood Urea Nitrogen 36(H) 7 - 22 mg/dL 09/02/2018 8:43 AM EDT Creatinine Level 2.06(H) 0.55 - 1.02 mg/dL 09/02/2018 8:43 AM EDT Sodium Level 146 136 - 146 mmol/L 09/02/2018 8:43 AM EDT Potassium Level 3.6 3.5 - 5.1 mmol/L 09/02/2018 8:43 AM EDT Chloride Level 115(H) 102 - 112 mmol/L 09/02/2018 8:43 AM EDT Carbon Dioxide Level 22 21 - 32 mmol/L 09/02/2018 8:43 AM EDT Comment:ok Anion Gap 13 9 - 20 09/02/2018 8:45 AM EDT Calcium Level 7.2(L) 8.5 - 10.1 mg/dL 09/02/2018 8:43 AM EDT Bun/Creatinine 17.5 8.0 - 20.0 09/02/2018 8:45 AM EDT eGFR NonAfrican 24(L) >=60 mL/min/1. 73m2 09/02/2018 8:45 AM EDT Comment: GFR <60 suggests chronic kidney disease, if found over 3 month period. GFR <15 indicates renal failure. eGFR 29(L) >=60 mL/min/1. 73m2 09/02/2018 8:45 AM EDT Comment: GFR <60 suggests chronic kidney disease, if found over 3 month period. GFR <15 indicates renal failure. Blood 09/02/2018 4:15 AM EDT 09/02/2018 8:17 AM EDT [facility] Historical Provider LAB BLOOD ORDERABLES Fi nal Result [facility] [address] [phone] * (ABNORMAL) AUTOMATED DIFFERENTIAL ([facility] BKR DATA CONV) (09/01/2018 4:10 AM EDT) Neut% 85.1(H) 34.0 - 71.0 % 09/01/2018 8:18 AM EDT Lymph% 9.0(L) 19.3 - 53.0 % 09/01/2018 8:18 AM EDT Gregg% 5.2 4.7 - 12.5 % 09/01/2018 8:18 AM EDT Eos% 0.0(L) 1.0 - 7.0 % 09/01/2018 8:18 AM EDT Baso% 0.1 0.0 - 1.0 % 09/01/2018 8:18 AM EDT IG% 1 0 - 1 % 09/01/2018 8:18 AM EDT Neut# 11.39(H) 1.56 - 6.13 K/uL 09/01/2018 8:18 AM EDT Lymph# 1.21 1.18 - 3.74 K/uL 09/01/2018 8:18 AM EDT Gregg# 0.69 0.24 - 0.82 K/uL 09/01/2018 8:18 AM EDT Eos# 0.00(L) 0.04 - 0.54 K/uL 09/01/2018 8:18 AM EDT Baso# 0.01 0.01 - 0.08 K/uL 09/01/2018 8:18 AM EDT IG# 0 0 - 0 x10(3)/uL 09/01/2018 8:18 AM EDT Blood 09/01/2018 4:10 AM EDT 09/01/2018 8:14 AM EDT Narrative [facility] - 09/01/2018 8:26 AM EDT Added by Discern Expert us [facility] Historical Provider LAB BLOOD ORDERABLES Fi nal Result [facility] [address] [place], [place] [address] [phone] * (ABNORMAL) PHOSPHORUS (09/01/2018 4:10 AM EDT) Phosphorus 5.3(H) 2.3 - 4.9 mg/dL 09/01/2018 8:39 AM EDT Comment: Reference Range changed affective -15-16: Previous Range 2.5-4.9 mg/dl NEW Range 2.6-4.7 mg/dl Blood 09/01/2018 4:10 AM EDT 09/01/2018 8:15 AM EDT [facility] Historical Provider MICROBIOLOGY - GENERAL ORDERABLES Final Result [facility] [address] [phone] * (ABNORMAL) CMP COMPREHENSIVE METABOLIC PANEL ([facility] BKR DATA CONV) (09/01/2018 4:10 AM EDT) Sodium Level 143 136 - 146 mmol/L 09/01/2018 8:39 AM EDT Potassium Level 4.4 3.5 - 5.1 mmol/L 09/01/2018 8:39 AM EDT Chloride Level 115(H) 102 - 112 mmol/L 09/01/2018 8:39 AM EDT Carbon Dioxide Level 18(L) 21 - 32 mmol/L 09/01/2018 8:39 AM EDT Anion Gap 14 9 - 20 09/01/2018 8:39 AM EDT Calcium Level 6.8(L) 8.5 - 10.1 mg/dL 09/01/2018 8:39 AM EDT Glucose Level 126(H) 74 - 106 mg/dL 09/01/2018 8:39 AM EDT Comment: Xumii has become aware of sulfasalazine and sulfapyridine [...] administration of the drug. Blood Urea Nitrogen 33(H) 7 - 22 mg/dL 09/01/2018 8:39 AM EDT Creatinine Level 2.11(H) 0.55 - 1.02 mg/dL 09/01/2018 8:39 AM EDT Bun/Creatinine 15.6 8.0 - 20.0 09/01/2018 8:39 AM EDT Albumin Level 1.3(L) 3.4 - 5.0 Gram/dL 09/01/2018 8:39 AM EDT Protein, Total 3.8(L) 6.4 - 8.2 Gram/dL 09/01/2018 8:39 AM EDT A/G Ratio 0.5(L) 1.1 - 2.5 09/01/2018 8:39 AM EDT Alk Phos 57 27 - 136 Units/Lit er 09/01/2018 8:39 AM EDT ALT 18 12 - 78 Units/Lit er 09/01/2018 8:39 AM EDT Comment: Xumii has become aware of sulfasalazine and sulfapyridine [...] prior to administration of the drug. AST 33 5 - 37 Units/Lit er 09/01/2018 8:39 AM EDT Comment: Xumii has become aware of sulfasalazine and sulfapyridine [...] Bilirubin, Total 0.3 0.2 - 1.3 mg/dL 09/01/2018 8:39 AM EDT Globulin 2.5 1.5 - 4.5 Gram/dL 09/01/2018 8:39 AM EDT eGFR 29(L) >=60 mL/min/1. 73m2 09/01/2018 8:39 AM EDT Comment: GFR <60 suggests chronic kidney disease, if found over 3 month period. GFR <15 indicates renal failure. eGFR NonAfrican 24(L) >=60 mL/min/1. 73m2 09/01/2018 8:39 AM EDT Comment: GFR <60 suggests chronic kidney disease, if found over 3 month period. GFR <15 indicates renal failure. Blood 09/01/2018 4:10 AM EDT 09/01/2018 8:[address] [facility] Provider LAB BLOOD ORDERABLES Fi nal Result Performing Organization Address City/[facility]/ZIP Co de Phone Number [facility] [address] [phone] * MAGNESIUM LEVEL ([facility] BKR DATA CONV) (09/01/2018 4:10 AM EDT) Magnesium Level 2.0 1.5 - 2.4 mg/dL 09/01/2018 8:39 AM EDT Blood 09/01/2018 4:10 AM EDT 09/01/2018 8:[address] [facility] Provider LAB BLOOD ORDERABLES Fi nal Result Performing Organization Address [facility] Co de Phone Number [facility] [address] [phone] * (ABNORMAL) CBC W/ AUTO DIFF ([facility] BKR DATA CONV) (09/01/2018 4:10 AM EDT) WBC 13.4(H) 3.9 - 10.0 K/uL 09/01/2018 8:18 AM EDT Comment:OK RBC 2.77(L) 3.93 - 5.22 Million/uL 09/01/2018 8:18 AM EDT Comment: No Red Blood Cell [...] ??12 ??Years ??150 ??Years ??3.93 5.22 Hgb 7.9(L) 11.2 - 15.7 Gram/dL 09/01/2018 8:18 AM EDT Comment: No Hemoglobin reference ranges [...] ??12 ??Years ??150 ??Years ??11.2 15.7 Hct 25.1(L) 34.1 - 44.9 % 09/01/2018 8:18 AM EDT Comment: No Hematocrit reference ranges [...] ??12 ??Years ??150 ??Years ??34.1 44.9 MCV 90.6 79.0 - 94.8 fL 09/01/2018 8:18 AM EDT MCH 28.5 25.6 - 32.2 pg 09/01/2018 8:18 AM EDT MCHC 31.5(L) 32.3 - 36.5 Gram/dL 09/01/2018 8:18 AM EDT RDW 16.9(H) 11.6 - 14.4 % 09/01/2018 8:18 AM EDT Platelet Count 188 163 - 369 K/uL 09/01/2018 8:18 AM EDT MPV 10.9 9.4 - 12.4 fL 09/01/2018 8:18 AM EDT Slide Review No 09/01/2018 8:26 AM EDT Blood 09/01/2018 4:10 AM EDT 09/01/2018 8:14 AM EDT [facility] Historical Provider LAB BLOOD ORDERABLES Fi nal Result Performing Organization Address [facility]/ZIP Co de Phone Number [facility] [address] [phone] * CULTURE, WOUND ([facility] BKR DATA CONV) (08/31/2018 10:28 PM EDT) Final No growth Pre No growth 08/31/2018 10:2 8 PM EDT 09/01/2018 4:13 AM EDT Comment:picc line catheter t ip [facility] Provider BODY FLUIDS AND STOOLS ORDERABLES Final Result Performing Organization Address [facility] de Phone Number [facility] [address] [phone] * (ABNORMAL) Hemoglobin and hematocrit (08/31/2018 8:35 PM EDT) Hgb 10.0(L) 11.2 - 15.7 Gram/dL 09/01/2018 12:48 AM EDT Comment: No Hemoglobin reference ranges [...] ??12 ??Years ??150 ??Years ??11.2 15.7 Hct 31.0(L) 34.1 - 44.9 % 09/01/2018 12:48 AM EDT Comment: No Hematocrit reference ranges [...] ??12 ??Years ??150 ??Years ??34.1 44.9 Blood 08/31/2018 8:35 PM EDT 09/01/2018 12:44 AM EDT [facility] Historical Provider LAB BLOOD ORDERABLES Fi nal Result [facility] [address] [phone] * XR knee 1 or 2 views left (08/31/2018 6:41 PM EDT) Anatomical Region Laterality Modality Thigh, Knee, Leg X-Ray 08/31/2018 6:41 PM EDT Narrative 09/01/2018 12:57 AM EDT LEFT KNEE SERIES HISTORY: Postoperative. COMPARISON: June 2018 FINDINGS: ??A 2 view exam was obtained. Status post explantation and spacer placement. Patella also noted. Expected postoperative changes are noted. Detail is limited from overlying cast or bandage. ? IMPRESSION: Postoperative changes as above. ?? Procedure Note Eris Bose MD - 07/21/2022 LEFT KNEE SERIES HISTORY: Postoperative. COMPARISON: June 2018 FINDINGS: A 2 view exam was obtained. Status post explantation and spacer placement. Patella also noted. Expected postoperative changes are noted. Detail is limited from overlying cast or bandage. IMPRESSION: Postoperative changes as above. Result [facility] Eris Bose MD IMG DIAGNOSTIC IMAGING OR DERABLES Final Result * CULTURE, WOUND ([facility] BKR DATA CONV) (08/31/2018 5:00 PM EDT) Final No growth Pre No growth GS Few Red Blood Cells No organisms seen. STRUCTURE OF LEFT KNEE REGION / Unknown 08/31/2018 5:00 PM EDT 09/01/2018 12:55 PM EDT Result [facility] Historical Provider BODY FLUIDS AND STOOLS ORDERABLES Final Result Performing Organization Address City/[facility]/ZIP Co de Phone Number [facility] [address] [phone] * RED BLOOD CELL PRODUCT ORDER ([facility] BKR DATA CONV) (08/31/2018 4:57 PM EDT) RBC Product Ready RBC Ready 08/31/2018 9:00 PM EDT #of Units 1 08/31/2018 8:58 PM EDT Date of Transfusion/Canela rg? 08/31/2018 08/31/2018 8:58 PM EDT Blood 08/31/2018 4:57 PM EDT 08/31/2018 9:00 PM EDT Result [facility] Historical Provider LAB BLOOD ORDERABLES Fi nal Result [facility] [address] [phone] * RED BLOOD CELL PRODUCT ORDER ([facility] BKR DATA CONV) (08/31/2018 11:20 AM EDT) RBC Product Ready RBC Ready 08/31/2018 3:25 PM EDT #of Units 2 08/31/2018 3:21 PM EDT Date of Transfusion/Canela rg? 08/3108/31/2018 3:21 PM EDT Blood 08/31/2018 11:2 0 AM EDT 08/31/2018 3:20 PM EDT [facility] Historical Provider LAB BLOOD ORDERABLES Fi nal Result [facility] [address] [phone] * ABO/Rh (08/31/2018 10:44 AM EDT) Hx Check OPOS 08/31/2018 3:0 3 PM EDT Method Tube 08/31/2018 3:0 3 PM EDT Anti-A 0 08/31/2018 3:0 3 PM EDT Anti-B 0 08/31/2018 3:0 3 PM EDT Anti-D 4+ 08/31/2018 3:0 3 PM EDT Con NT 08/31/2018 3:0 3 PM EDT A1 4+ 08/31/2018 3:0 3 PM EDT B 2+ 08/31/2018 3:0 3 PM EDT ABO/Rh O POS 08/31/2018 3:0 3 PM EDT Blood 08/31/2018 10:4 4 AM EDT 08/31/2018 2:[address] [facility] Provider [facility] BLOOD BANK TEST ORD ERABLES Final Result [facility] [address] [place] [address], [facility] [phone] * Antibody Screen (08/31/2018 10:44 AM EDT) Method PeG 08/31/2018 3:03 PM EDT SC1IS 0 08/31/2018 3:03 PM EDT SC2IS 0 08/31/2018 3:03 PM EDT SC3IS NT 08/31/2018 3:03 PM EDT SC137 0 08/31/2018 3:20 PM EDT SC237 0 08/31/2018 3:20 PM EDT SC337 NT 08/31/2018 3:03 PM EDT SC1 AHG 0 08/31/2018 3:20 PM EDT SC2 AHG 0 08/31/2018 3:20 PM EDT SC3 AHG NT 08/31/2018 3:03 PM EDT SC1CC 2+ 08/31/2018 3:20 PM EDT SC2CC 2+ 08/31/2018 3:20 PM EDT SC3CC NT 08/31/2018 3:03 PM EDT Antibody Screen (Tube) Negative ABSC 08/31/2018 3:20 PM EDT Blood 08/31/2018 10:4 4 AM EDT 08/31/2018 2:51 PM EDT [facility] Historical Provider [facility] BLOOD BANK TEST ORD ERABLES Final Result Performing Organization Address City/State/[facility] Co de Phone Number [facility] [address] [phone] * Crossmatch (08/31/2018 10:44 AM EDT) BB PRODUCT 08/31/2018 3:25 PM EDT [facility] BB PRODUCT 09/02/2018 12:47 PM EDT [facility] [id number] 08/31/2018 3:25 PM EDT BB PRODUCT 09/02/2018 12:47 PM EDT [facility] BB PRODUCT 09/03/2018 12:44 AM EDT [facility] BB PRODUCT 08/31/2018 9:01 PM EDT [facility] BB PRODUCT 09/03/2018 12:44 AM EDT [facility] BB PRODUCT 08/31/2018 3:25 PM EDT [facility] Blood 08/31/2018 10:4 4 AM EDT 08/31/2018 2:51 PM EDT Narrative [facility] - 09/03/2018 12:44 AM EDT Ordered by Discern us [facility] Historical Provider BLOOD BANK TEST ORDERAB LES Edited Result - Final [facility] [address] [place] [id number], [facility] [phone] * US renal complete bilateral (08/31/2018 8:52 AM EDT) Anatomical Region Laterality Modality Abdomen, Kidney Ultrasound 08/31/2018 8:52 AM EDT Narrative 08/31/2018 2:35 PM EDT RENAL ULTRASOUND HISTORY: ??Renal failure . PROCEDURE: Ultrasound images of the kidneys were obtained. FINDINGS: ??Limited images of the liver parenchyma demonstrate ??normal echogenicity . ?? The right kidney measures 10 cm in length. ?? It is normal echogenicity . ??There is no hydronephrosis . ? The left kidney measures 10 cm in length. ?? It is normal echogenicity . There is no hydronephrosis . ? IMPRESSION: ??Normal renal ultrasound . Procedure Note Eris Bose MD - 07/21/2022 RENAL ULTRASOUND HISTORY: Renal failure . PROCEDURE: Ultrasound images of the kidneys were obtained. FINDINGS: Limited images of the liver parenchyma demonstrate normal echogenicity . The right kidney measures 10 cm in length. It is normal echogenicity . There is no hydronephrosis . The left kidney measures 10 cm in length. It is normal echogenicity . There is no hydronephrosis . IMPRESSION: Normal renal ultrasound . us Eris Bose MD [facility] US ORDERABLES Final R esult * Ultrasound leg left mapping for varicose veins (08/31/2018 8:38 AM EDT) Anatomical Region Laterality Modality Vascular, Thigh, Leg Ultrasound 08/31/2018 8:38 AM EDT Narrative 08/31/2018 3:10 PM EDT LEFT ??LOWER EXTREMITY VENOUS DUPLEX DOPPLER EXAMINATION HISTORY: Left Lower extremity swelling . PROCEDURE: Multiple transverse and longitudinal scans were performed of the femoropopliteal deep venous system, with augmentation and compression maneuvers. FINDINGS: The common femoral vein, femoral vein, profunda vein, popliteal vein, peroneal vein, greater saphenous veins are normal. There is thrombosis of the posterior tibial vein. IMPRESSION: Calf thrombosis as above. LILY was notified of the findings at the time of the examination. Procedure Note Eris Bose MD - 07/21/2022 LEFT LOWER EXTREMITY VENOUS DUPLEX DOPPLER EXAMINATION HISTORY: Left Lower extremity swelling . PROCEDURE: Multiple transverse and longitudinal scans were performed of the femoropopliteal deep venous system, with augmentation and compression maneuvers. FINDINGS: The common femoral vein, femoral vein, profunda vein, popliteal vein, peroneal vein, greater saphenous veins are normal. There is thrombosis of the posterior tibial vein. IMPRESSION: Calf thrombosis as above. LILY was notified of the findings at the time of the examination. Eris Bose MD [facility] ORDERABLES Final R esult * PHOSPHORUS (08/31/2018 7:16 AM EDT) Phosphorus 4.6 2.3 - 4.9 mg/dL 08/31/2018 11:43 AM EDT Comment: Reference Range changed affective -15-16: Previous Range 2.5-4.9 mg/dl NEW Range 2.6-4.7 mg/dl Blood 08/31/2018 7:16 AM EDT 08/31/2018 11:27 AM EDT Result [facility] Historical Provider MICROBIOLOGY - GENERAL ORDERABLES Final Result [facility] [address] [place] [address] * MAGNESIUM LEVEL ([facility] BKR DATA CONV) (08/31/2018 7:16 AM EDT) Magnesium Level 1.8 1.5 - 2.4 mg/dL 08/31/2018 11:43 AM EDT Blood 08/31/2018 7:16 AM EDT 08/31/2018 11:27 AM EDT [facility] Historical Provider LAB BLOOD ORDERABLES Fi nal Result Performing Organization Address [facility] Co de Phone Number [facility] [address] [phone] * (ABNORMAL) PTH,INTACT (08/31/2018 7:16 AM EDT) PTH Intact 102.9(H) 18.4 - 80.1 pg/mL 08/31/2018 12:37 PM EDT Comment:The intraoperative P TH assay is used to give physicians a quick assessment of parathyroid gland secretory status. A decrease if 50% or more from baseline pre-operative level indicates the hypersecreting tissue has been removed. Blood 08/31/2018 7:16 AM EDT 08/31/2018 11:27 AM EDT Result [facility] Provider LAB BLOOD ORDERABLES Fi nal Result Performing Organization Address [facility] Co de Phone Number [facility] [address] [phone] * (ABNORMAL) Vitamin D, 25-Hydroxy(SENDOUT) (08/31/2018 7:16 AM EDT) Vitamin D 25 Hydroxy 13.9(L) 30.0 - 100.0 ng/mL 08/31/2018 11:52 AM EDT Comment: <20 Deficient 20 to 29 Insufficient 30 to 100 Sufficient >100 Toxic Blood 08/31/2018 7:16 AM EDT 08/31/2018 11:27 AM EDT [facility] Historical Provider LAB BLOOD ORDERABLES Fi nal Result Performing Organization Address [facility] Co de Phone Number [facility] [address] [phone] * Urea Nitrogen, random urine (08/31/2018 7:02 AM EDT) Urea Nitrogen Urine Random 390 mg/dL 08/31/2018 3:50 PM EDT Comment:No Reference Range E stablished Urine 08/31/2018 7:02 AM EDT 08/31/2018 3:[address] [facility] Provider URINE ORDERABLES Final Result Performing Organization Address [facility] de Phone Number [facility] [address] [phone] * CREATININE URINE RANDOM ([facility] BKR DATA CONV) (08/31/2018 7:02 AM EDT) Creatinine Urine Random 60 mg/dL 08/31/2018 11:28 AM EDT Comment:No Reference Range E stablished Urine 08/31/2018 7:02 AM EDT 08/31/2018 11:[address] [facility] Provider URINE ORDERABLES Final Result Performing Organization Address [facility] Phone Number [facility] [address] [phone] * EOSINOPHIL COUNT OTHER ([facility] BKR DATA CONV) (08/31/2018 7:02 AM EDT) Eosinophil Ct Other 0 0 - 0 08/31/2018 11:51 AM EDT Urine 08/31/2018 7:02 AM EDT 08/31/2018 11:10 AM EDT Result [facility] Provider BODY FLUIDS AND STOOLS ORDERABLES Final Result Performing Organization Address [facility] Co de Phone Number [facility] [address] [phone] * URIC ACID URINE RANDOM ([facility] BKR DATA CONV) (08/31/2018 7:02 AM EDT) Uric Acid Urine Random 38 mg/dL 08/31/2018 2:05 PM EDT Comment:No Reference Range E stablished Urine 08/31/2018 7:02 AM EDT 08/31/2018 1:56 PM EDT [facility] Historical Provider URINE ORDERABLES Final Result Performing Organization Address City/[facility] Co de Phone Number [facility] [address] [phone] * PROTEIN URINE RANDOM ([facility] BKR DATA CONV) (08/31/2018 7:02 AM EDT) Protein Ur [place] 209 mg/dL 9 11:28 AM EDT Comment:No Reference Range E stablished Urine 08/31/2018 7:02 AM EDT 08/31/2018 11:[address] [facility] Provider URINE ORDERABLES Final Result Performing Organization Address [facility] Co de Phone Number [facility] [address] [phone] * SODIUM LEVEL URINE RANDOM ([facility] BKR DATA CONV) (08/31/2018 7:02 AM EDT) Sodium Ur [place] 48 mMole/Lite r 08/31/2018 11:28 AM EDT Comment:No Reference Range E stablished Urine 08/31/2018 7:02 AM EDT 08/31/2018 11:[address] [facility] Provider URINE ORDERABLES Final Result Performing Organization Address [facility] Co de Phone Number [facility] [address] [phone] * (ABNORMAL) CBC W/ AUTO DIFF ([facility] BKR DATA CONV) (08/31/2018 5:45 AM EDT) WBC 5.3 3.9 - 10.0 K/uL 08/31/2018 9:51 AM EDT RBC 2.75(L) 3.93 - 5.22 Million/uL 08/31/2018 9:51 AM EDT Comment: No Red Blood Cell [...] ??12 ??Years ??150 ??Years ??3.93 5.22 Hgb 7.8(L) 11.2 - 15.7 Gram/dL 08/31/2018 9:51 AM EDT Comment: No Hemoglobin reference ranges [...] ??12 ??Years ??150 ??Years ??11.2 15.7 Hct 24.5(L) 34.1 - 44.9 % 08/31/2018 9:51 AM EDT Comment: No Hematocrit reference ranges [...] ??12 ??Years ??150 ??Years ??34.1 44.9 MCV 89.1 79.0 - 94.8 fL 08/31/2018 9:51 AM EDT MCH 28.4 25.6 - 32.2 pg 08/31/2018 9:51 AM EDT MCHC 31.8(L) 32.3 - 36.5 Gram/dL 08/31/2018 9:51 AM EDT RDW 17.5(H) 11.6 - 14.4 % 08/31/2018 9:51 AM EDT Platelet Count 161(L) 163 - 369 K/uL 08/31/2018 9:51 AM EDT MPV 10.5 9.4 - 12.4 fL 08/31/2018 9:51 AM EDT Slide Review No 08/31/2018 9:54 AM EDT Blood 08/31/2018 5:45 AM EDT 08/31/2018 9:49 AM EDT [facility] Historical Provider LAB BLOOD ORDERABLES Fi nal Result Performing Organization Address [facility]/State/ZIP Co de Phone Number [facility] [address] [phone] * ABO/RH CONFIRMATION/RETYPE (08/31/2018 5:45 AM EDT) Method Tube 08/31/2018 2:00 PM EDT Anti-A 0 08/31/2018 2:00 PM EDT Anti-B 0 08/31/2018 2:00 PM EDT Anti-D 4+ 08/31/2018 2:00 PM EDT Con NT 08/31/2018 2:00 PM EDT A1 4+ 08/31/2018 2:00 PM EDT B 2+ 08/31/2018 2:00 PM EDT ABO/Rh Repeat O POS 08/31/2018 2:00 PM EDT Blood 08/31/2018 5:45 AM EDT 08/31/2018 9:49 AM EDT [facility] Historical Provider [facility] BLOOD BANK TEST ORD ERABLES Final Result [facility] [address] [phone] * (ABNORMAL) CMP COMPREHENSIVE METABOLIC PANEL ([facility] BKR DATA CONV) (08/31/2018 5:45 AM EDT) Sodium Level 145 136 - 146 mmol/L 08/31/2018 10:18 AM EDT Potassium Level 3.7 3.5 - 5.1 mmol/L 08/31/2018 10:18 AM EDT Chloride Level 112 102 - 112 mmol/L 08/31/2018 10:18 AM EDT Carbon Dioxide Level 22 21 - 32 mmol/L 08/31/2018 10:18 AM EDT Anion Gap 15 9 - 20 08/31/2018 10:18 AM EDT Calcium Level 7.2(L) 8.5 - 10.1 mg/dL 08/31/2018 10:18 AM EDT Glucose Level 93 74 - 106 mg/dL 08/31/2018 10:18 AM EDT Comment: [employer] has become aware of sulfasalazine and sulfapyridine [...] administration of the drug. Blood Urea Nitrogen 32(H) 7 - 22 mg/dL 08/31/2018 10:18 AM EDT Creatinine Level 2.31(H) 0.55 - 1.02 mg/dL 08/31/2018 10:18 AM EDT Bun/Creatinine 13.9 8.0 - 20.0 08/31/2018 10:18 AM EDT Albumin Level 1.4(L) 3.4 - 5.0 Gram/dL 08/31/2018 10:18 AM EDT Protein, Total 4.4(L) 6.4 - 8.2 Gram/dL 08/31/2018 10:18 AM EDT A/G Ratio 0.5(L) 1.1 - 2.5 08/31/2018 10:18 AM EDT Alk Phos 72 27 - 136 Units/Lit er 08/31/2018 10:18 AM EDT ALT 19 12 - 78 Units/Lit er 08/31/2018 10:18 AM EDT Comment: [employer] has become aware of sulfasalazine and sulfapyridine [...] prior to administration of the drug. AST 42(H) 5 - 37 Units/Lit er 08/31/2018 10:18 AM EDT Comment: [employer] has become aware of sulfasalazine and sulfapyridine [...] Bilirubin, Total 0.3 0.2 - 1.3 mg/dL 08/31/2018 10:18 AM EDT Globulin 3.0 1.5 - 4.5 Gram/dL 08/31/2018 10:18 AM EDT eGFR 26(L) >=60 mL/min/1. 73m2 08/31/2018 10:18 AM EDT Comment: GFR <60 suggests chronic kidney disease, if found over 3 month period. GFR <15 indicates renal failure. eGFR NonAfrican 21(L) >=60 mL/min/1. 73m2 08/31/2018 10:18 AM EDT Comment: GFR <60 suggests chronic kidney disease, if found over 3 month period. GFR <15 indicates renal failure. Blood 08/31/2018 5:45 AM EDT 08/31/2018 9:49 AM EDT [facility] Historical Provider LAB BLOOD ORDERABLES Fi nal Result [facility] [address] [phone] * (ABNORMAL) AUTOMATED DIFFERENTIAL ([facility] BKR DATA CONV) (08/31/2018 5:45 AM EDT) Pathologist [facility] Neut% 61.4 34.0 - 71.0 % 08/31/2018 9:51 AM EDT Lymph% 19.8 19.3 - 53.0 % 08/31/2018 9:51 AM EDT Gregg% 7.8 4.7 - 12.5 % 08/31/2018 9:51 AM EDT Eos% 10.4(H) 1.0 - 7.0 % 08/31/2018 9:51 AM EDT Baso% 0.4 0.0 - 1.0 % 08/31/2018 9:51 AM EDT IG% 0 0 - 1 % 08/31/2018 9:51 AM EDT Neut# 3.25 1.56 - 6.13 K/uL 08/31/2018 9:51 AM EDT Lymph# 1.05(L) 1.18 - 3.74 K/uL 08/31/2018 9:51 AM EDT Gregg# 0.41 0.24 - 0.82 K/uL 08/31/2018 9:51 AM EDT Eos# 0.55(H) 0.04 - 0.54 K/uL 08/31/2018 9:51 AM EDT Baso# 0.02 0.01 - 0.08 K/uL 08/31/2018 9:51 AM EDT IG# 0 0 - 0 x10(3)/uL 08/31/2018 9:51 AM EDT Blood 08/31/2018 5:45 AM EDT 08/31/2018 9:49 AM EDT Narrative [facility] - 08/31/2018 9:54 AM EDT Added by Discern Expert us [facility] Historical Provider LAB BLOOD ORDERABLES Fi nal Result [facility] 1 [place], [place] [address] [phone] * (ABNORMAL) URINALYSIS UA RFLX MICROSCOPIC CULT IF IND ([facility] BKR DATA CONV) (08/31/2018 3:53 AM EDT) [facility] Urine Type. U Cath 08/31/2018 8:00 AM EDT Urine Color Yellow 08/31/2018 8:10 AM EDT Comment: Substances that cause HIGHLY abnormal urine color may affect the accuracy of URINE CHEMISTRY reagent strip results due to colorimetric interference. ??These include visible levels of blood or bilirubin, drugs containing dyes, and some antibiotics such as nitrofurantoin and riboflavin which can cause markedly abnormal urine coloration. Urine Appearance Cloudy(A) 09/01/19 19 8:10 AM EDT Urine Specific [place] 1.012 1.005 - 1.030 08/31/2018 8:10 AM EDT Urine pH Dipstick 5.5(L) 6.0 - 8.0 08/31/2018 8:10 AM EDT Urine Leukocyte Esterase Negative Negative 08/31/2018 8:10 AM EDT Urine Nitrite Negative Negative 08/31/2018 8:10 AM EDT Urine Protein Dipstick 100(A) Negative 08/31/2018 8:10 AM EDT Urine Glucose Dipstick Negative Negative 08/31/2018 8:10 AM EDT Urine Ketones Dipstick Negative Negative 08/31/2018 8:10 AM EDT Urine Urobilinogen Dipstick 0.2 0.2 - 1.0 EU/dL 08/31/2018 8:10 AM EDT Urine Bilirubin Dipstick Negative Negative 08/31/2018 8:10 AM EDT Urine Blood Dipstick Large(A) Negative 08/31/2018 8:10 AM EDT 08/31/2018 3:53 AM EDT 08/31/2018 8:00 AM EDT [facility] Historical Provider URINE ORDERABLES Final Result [facility] [address] [phone] * (ABNORMAL) URINALYSIS MICROSCOPIC ([facility] BKR DATA CONV) (08/31/2018 3:53 AM EDT) Correlate UA Correlated Correlated 08/31/2018 8:42 AM EDT Ur RBC 2-5(A) None Seen /HPF 08/31/2018 8:42 AM EDT Ur WBC 0-2 None Seen /HPF 08/31/2018 8:42 AM EDT Ur Bacteria Trace(A) None Seen 08/31/2018 8:42 AM EDT Ur Amorph Trace(A) 08/31/2018 8:42 AM EDT Ur Squamous Epithelial Cells 2-5(A) /HPF 08/31/2018 8:42 AM EDT 08/31/2018 3:53 AM EDT 08/31/2018 8:00 AM EDT Narrative [facility] - 08/31/2018 8:42 AM EDT Added by Discern Expert Sle Historical Provider URINE ORDERABLES Final Result [facility] [address] [phone] documented in this encounter Visit Diagnoses Not on filedocumented in this encounter
--- OUTSIDE RECORDS SUMMARY | 2024-03-11 09:24 | XMS_ITS | Encounter Summary ---
Author Organization [employer] Address [address] [facility] [place] [address] Care Team Providers Care Interventional Tech Name Role Phone Juan José Kendall MD Primary Care Provider +- [phone] Juan José Kendall MD Unavailable [phone] Encounter Details Date Type Department Care Team (Late st Contact Info) Description 06/28/2018 Transcribed Document [facility] Family [place] [address] ProviderLaurie MD [address] [place] [id number] Social History Tobacco Use Types Packs/Day Years Used Date Smoking Tobacco: Never Assessed Comments Unknown Sex and Gender Information Value Date Recorded Sex Assigned at Not on file Legal Sex Female 2:23 PM CDT Gender Identity Not on file Sexual Orientation Not on file documented as of this encounter Miscellaneous Notes * [employer] Conversion Note - Historical ProviderMD - 06/28/2018 4:12 PM CDT Discharge Summary, PT Entered On: 06/29/2018 15:35 EDT Performed On: 06/28/2018 16:12 EDT by VINNIE LUI PTA Discharge Summary Reason for Discharge : Discharged from hospital VINNIE LUI PTA - 06/29/2018 15:30 EDT Discharge Summary Comment, PT : Patient was discharged from [facility] on 06/28/18 having met 2/3 acute therapy goals. At time of discharge patient was CGA/Hilary with bed mobility, CGA for transfers with RWx, ambulated ~ 60' CGA with RWx. Patient would continue to benefit from skilled PT services to improve LE strength and functional mobility to return to PLOF. I agree with above D/C summary. Reyna Yeung, PT FRANTZ YEUNG, PT - 06/29/2018 16:01 EDT Section [employer] Activities Clerk Goals Other PT LTG Grid Goal #1 Goal #2 Goal #3 Other : Pt will perform sup-sit with SBA to decrease caregiver burden at discharge Pt will perform sit-stand with RWx and CGA to allow improved trasnfers at home Pt will ambulate 50ft with RWx and CGA to allow safe household mobility at discharge Date to Meet : 07/05/2018 EDT 07/05/2018 EDT 07/05/2018 EDT Goal Status : Progressing, continue Goal met Goal met Date Met : 06/28/2018 EDT 06/28/2018 EDT Comment : Pt will have help at home to perform transfer VNINIE LUI, MANAGER INTERFACE - 06/29/2018 15:30 EDT VINNIE LUI, MANAGER INTERFACE - 06/29/2018 15:30 EDT VINNIE LUI, MANAGER INTERFACE - 06/29/2018 15:30 EDT Electronically signed by Aleks [facility] Conversion Dinkey Dispatcher [employer] at 07/24/2022 3:34 PM CDT documented in this encounter Plan of Treatment Not on file documented as of this encounter Visit Diagnoses Not on filedocumented in this encounter Care Teams Interventional Tech Relationship Specialty Start Date End Date Juan José Kendall MD [address] [facility] [address] [place] [id number] PCP - General Family Medicine 12/25/22 Juan José Kendall MD [address] [place] [phone] Referring Physician Family Medicine 12/25/22 documented as of this encounter
--- OUTSIDE RECORDS SUMMARY | 2024-03-11 09:24 | XMS_ITS | Encounter Summary ---
Author Organization [employer] Address [address] [place] [address] Care Team Providers Care County Attorney Name Role Phone Juan José Kendall MD Primary Care Provider + [phone] Juan José Kendall MD Unavailable [phone] Encounter Details Date Type Department Care Team (Late st Contact Info) Description 06/27/[address] [facility] Family Medicine [facility] [address] ProviderLaurie MD [address] [place] [id number] Social History Tobacco Use Types Packs/Day Years Used Date Smoking Tobacco: Never Assessed Comments Unknown Sex and Gender Information Value Date Recorded Sex Assigned at Not on file Legal Sex Female 2:23 PM CDT Gender Identity Not on file Sexual Orientation Not on file documented as of this encounter Miscellaneous Notes * [employer] Conversion Note - Historical ProviderMD - 06/27/2018 8:32 PM CDT Care Management Assessment/Plan Entered On: 06/28/2018 12:20 EDT Performed On: 06/28/2018 12:19 EDT by JAYE MAYFIELD Case Management-Lead Systems Analyst Care Management Note Care Management Note : PT ADMITTED FOR PATELLA TENDON REPAIR AND IS IN STRAIGHT LEG CAST, PT HAS HER WALKER AND BSC, PT STATED SHE IS TO WAIT UNTIL FOLLOW UP APPT AND HAVE CAST REMOVED. PT WILL HAVE P.T. SCHEDULED AT THAT TIME. Documentation Status Complete : Yes JAYE MAYFIELD Case Management-Lead Systems Analyst - 06/28/2018 12:19 EDT Final Discharge Disposition Note-CM Discharge To Care Management : Home/Residential/Nursing Home or Self Care - JAYE MAYFIELD, Case Management-Lead Systems Analyst - 06/28/2018 12:19 EDT Electronically signed by Aleks [facility] Conversion Technical Editor [employer] at 07/24/2022 3:55 PM CDT documented in this encounter Plan of Treatment Not on file documented as of this encounter Visit Diagnoses Not on filedocumented in this encounter Care Teams County Attorney Relationship Specialty Start Date End Date Juan José Kendall MD [address] [facility] [address] [place] [phone] PCP - General Family Medicine 12/25/22 [place] [address] [place] [address] [address] [place] [phone] Referring Physician Family Medicine 12/25/22 documented as of this encounter
--- OUTSIDE RECORDS SUMMARY | 2024-03-11 09:24 | XMS_ITS | Encounter Summary ---
Author Organization [employer] Address [address] [facility] [place] [address] Care Team Providers Care State Highway Police Officer Name Role Phone Juan José Kendall MD Primary Care Provider + [phone] Juan José Kendall MD Unavailable [phone] Encounter Details Date Type Department Care Team (Late st Contact Info) Description 06/27/2018 Transcribed Document [facility] [place] [address] ProviderLaurie MD [address] [place] [id number] Social History Tobacco Use Types Packs/Day Years Used Date Smoking Tobacco: Never Assessed Comments Unknown Sex and Gender Information Value Date Recorded Sex Assigned at Not on file Legal Sex Female 2:23 PM CDT Gender Identity Not on file Sexual Orientation Not on file documented as of this encounter Miscellaneous Notes * Cerner Conversion Note - Laurie Garcia MD - 06/27/2018 8:48 PM CDT Patient: TRUDI BLAIR Age: 62 years Sex: Female : 1955 Associated Diagnoses: Left patella Tendon rupture, post-op; Status post total knee replacement, 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 She was seen by Dr. Guerrero and found that the patient has left patella tendon rupture and patient was taken today to the OR and had the left patellar tendon repair. Postoperative Information Patient had surgery today and is recovering well. patient is awake, alert, cooperative, responsive, and is under no acute distress. Currently Patient is on pain medication as recommended by Dr. Guerrero Patient's pain is well controlled. Patient [...] Biaxin Acid reflux Current medications: Home Medications (11) Active baclofen 10 mg oral tablet 20 mg = 2 Tab, Oral, QPM celecoxib 200 mg, Oral, Daily gabapentin 300 mg oral capsule 300 mg = 1 Cap, Oral, BID metoclopramide 10 mg oral tablet 10 mg = 1 Tab, Oral, BID Metoprolol Tartrate 50 mg, Oral, Daily morphine 30 mg/12 hr oral tablet, extended release 1 Tab, Oral, BID omeprazole 20 mg oral delayed release tablet 20 mg = 1 Tab, Oral, Daily oxybutynin 5 mg oral tablet 5 mg = 1 Tab, Oral, BID potassium chloride 20 mEq oral tablet, extended release 20 mEq = 1 Tab, Oral, BID simvastatin 40 mg oral tablet 40 mg = 1 Tab, Oral, At Bedtime topiramate 25 mg oral capsule 25 mg = 1 Cap, Oral, BID , Medications (48) Active Scheduled: (21) #NaCl 0.9% *FLUSH* inj 10 mL 10 mL, IV Push, Q12H acetaminophen 500 mg tab 500 mg 1 Tab, Oral, Q6HInt acetaminophen/oxyCODONE 325/5 mg tab 1 Tab, Oral, 1-Time ceFAZolin 3 Gram, IV Piggyback, 1-Time ceFAZolin 6 Gram, IV Piggyback, 1-Time ceFAZolin/D5w 2 Gram 50 mL, IV Piggyback, PREOP cloNIDine 80 mcg + ketorolac 30 mg + ropivacaine 0.5% 30 mL + lidocaine 1% w/epi 1:100,000 28.2 mL 80 mcg 0.8 mL, IntraLesional, 1-Time enoxaparin 40 mg/0.4 mL inj 40 mg 0.4 mL, SubCutaneous, [id number] gabapentin 300 mg cap 300 mg 1 Cap, Oral, BID lidocaine 2% inj 5 mL 3 mL, IntraDermal, 1-Time lidocaine 2% w/epi 1:100,000 inj 20 mL 10 mL, IntraCATHeter, 1-Time metoclopramide 10 mg tab 10 mg 1 Tab, Oral, BID morphine 30 mg, Oral, BID pantoprazole EC 40 mg tab 40 mg 1 Tab, Oral, Daily potassium chloride 20 mEq 1 Tab, Oral, BID pregabalin 75 mg cap 75 mg 1 Cap, Oral, [id number] ropivacaine 0.5% inj 20 mL 30 mL, IntraCATHeter, 1-Time simvaSTATin 20 mg tab 40 mg 2 Tab, Oral, At Bedtime topiramate 25 mg sprinkle cap 25 mg 1 Cap, Oral, BID tranexamic acid 1 Gram 10 mL, IV Piggyback, 1-Time tranexamic acid 1,000 mg + syringe 1 Each + NaCl 0.9% 20 mL 1,000 mg 10 mL, Topical, 1-Time Continuous: (2) D5/LR 1,000 mL 1,000 mL, IntraVENous, 125 mL/Hr Normosol-R 1,000 mL 1,000 mL, IntraVENous, 100 mL/Hr PRN: (25) #NaCl 0.9% *FLUSH* inj 3 mL 5 mL, IntraVENous, See Comment al hydrox/mag hydrox/simeth 30 mL liq 30 mL, Oral, Q6H albuterol-ipratropium inh 3 mL 3 mL, Nebulized Inhalation, Q4H bisacodyl 10 mg supp 10 mg 1 Supp, Rectal, Daily diphenhydrAMINE 25 mg tab 25 mg 1 Tab, Oral, On-CALL docusate calcium 240 mg cap 240 mg 1 Cap, Oral, Daily famotidine 20 mg tab 20 mg 1 Tab, Oral, PREOP fentaNYL 100 mcg/2 mL inj 50 mcg 1 mL, IV Push, Q10Min fentaNYL 100 mcg/2 mL inj 50 mcg 1 mL, IV Push, Q10Min HYDROmorphone 1 mg/1 mL inj 0.5 mg 0.5 mL, IV Push, Q10Min HYDROmorphone 1 mg/1 mL inj 0.5 mg 0.5 mL, IV Push, Q3H lidocaine 1% *PF* inj 2 mL 0.5 mL, IntraDermal, 1-Time magnesium hydroxide 8% liq 30 mL 15 mL, Oral, Q6H metaxalone 800 mg tab 800 mg 1 Tab, Oral, TID midazolam 2 mg/2 mL inj *PF* 2 mg 2 mL, IV Push, Q10Min midazolam 2 mg/2 mL inj *PF* 2 mg 2 mL, IV Push, Q10Min morphine 10 mg/1 mL inj 2 mg 0.2 mL, IV Push, Q10Min ondansetron 4 mg tab 4 mg 1 Tab, Oral, Q6H ondansetron 4 mg/2 mL inj 4 mg 2 mL, IV Push, PREOP ondansetron 4 mg/2 mL inj 4 mg 2 mL, IV Push, 1-Time oxyCODONE 5 mg tab 5 mg 1 Tab, Oral, Q4H oxyCODONE 5 mg tab 10 mg 2 Tab, Oral, Q4H phenol 1.4% throat spray 5 [place], Oral, Q2H scopolamine 1.5 mg/72 hr patch 1 Patch, TransDermal, PREOP traZODone 50 mg tab 50 mg 1 Tab, Oral, At Bedtime Problem list: Active Problems (7) Arthritis Back pain GERD (gastroesophageal reflux disease) High cholesterol History of obstructive sleep apnea HTN (hypertension) Stress incontinence Histories Family History: Family history significant for CAD, HTN and cancer Procedure history: HYSTERECTOMY. LUMBAR FUSION. SAURABH PLANTAR FASCITIS SX. R TKR. right knee patellar tendon repair. Left total knee replacement. left patellar tendon repair. colonoscopy. Social History Patient is and has only 1 son that is no history of smoking or drinking alcohol. Physical Examination VS/Measurements Vital Signs/Vital Measures 06/27/2018 19:44 EDT Heart Rate Monitored 69 bpm Respiratory Rate 16 Breaths/Min Systolic Blood Pressure 101 mmHg Diastolic Blood Pressure 57 mmHg LOW Mean Arterial Pressure (MAP)-BMDI 76 Oxygen Saturation 96 % 06/27/2018 19:30 EDT Heart Rate Monitored 75 bpm Respiratory Rate 14 Breaths/Min Systolic Blood Pressure 86 mmHg LOW Diastolic Blood Pressure 52 mmHg LOW Mean Arterial Pressure (MAP)-BMDI 68 Oxygen Saturation 95 % 06/27/2018 19:15 EDT Heart Rate Monitored 76 bpm Respiratory Rate 14 Breaths/Min Systolic Blood Pressure 112 mmHg Diastolic Blood Pressure 60 mmHg Mean Arterial Pressure (MAP)-BMDI 70 Oxygen Saturation 97 % 06/27/2018 19:00 EDT Heart Rate Monitored 81 bpm Respiratory Rate 14 Breaths/Min Systolic Blood Pressure 105 mmHg Diastolic Blood Pressure 62 mmHg 06/27/2018 18:55 EDT Heart Rate Monitored 82 bpm Respiratory Rate 14 Breaths/Min Systolic Blood Pressure 112 mmHg Diastolic Blood Pressure 61 mmHg Mean Arterial Pressure (MAP)-BMDI 79 Oxygen Saturation 95 % Oxygen Therapy Mode Room air 06/27/2018 18:50 EDT Heart Rate Monitored 81 bpm Respiratory Rate 14 Breaths/Min Systolic Blood Pressure 110 mmHg Diastolic Blood Pressure 61 mmHg Mean Arterial Pressure (MAP)-BMDI 84 Oxygen Saturation 96 % Oxygen Therapy Mode Room air 06/27/2018 18:45 EDT Heart Rate Monitored 81 bpm Respiratory Rate 15 Breaths/Min Systolic Blood Pressure 115 mmHg Diastolic Blood Pressure 56 mmHg LOW Mean Arterial Pressure (MAP)-BMDI 78 Oxygen Saturation 94 % 06/27/2018 18:40 EDT Heart Rate Monitored 84 bpm Respiratory Rate 16 Breaths/Min Systolic Blood Pressure 103 mmHg Diastolic Blood Pressure 55 mmHg LOW Mean Arterial Pressure (MAP)-BMDI 71 Oxygen Saturation 93 % LOW 06/27/2018 18:37 EDT Temperature Source Temporal artery scanning Temperature Mode Fahrenheit Temperature, Fahrenheit 97.6 Deg F Clinical Temperature, C 36.4 Deg C Heart Rate Monitored 56 bpm LOW Respiratory Rate 16 Breaths/Min Systolic Blood Pressure 112 mmHg Diastolic Blood Pressure 51 mmHg LOW Mean Arterial Pressure (MAP)-BMDI 75 Oxygen Saturation 93 % LOW 06/27/2018 18:35 EDT Oxygen Therapy Mode Room air 06/27/2018 14:15 EDT Heart Rate Monitored 62 bpm Respiratory Rate 16 Breaths/Min Systolic Blood Pressure 115 mmHg Diastolic Blood Pressure 68 mmHg Oxygen Saturation 98 % Oxygen Therapy Mode Nasal cannula Oxygen Flow Rate 2 Liter/Min 06/27/2018 12:15 EDT Temperature Source Temporal artery scanning Temperature Mode Celsius Temperature, Celsius 36.6 Deg C Clinical Temperature, F 97.9 Deg F Pulse Method Pulse Oximetry Pulse Rhythm Regular Peripheral Pulse Rate 64 bpm Respiratory Rate 18 Breaths/Min Blood Pressure Location Arm, right upper Blood Pressure Source Non-Invasive BP Device Systolic Blood Pressure 131 mmHg Diastolic Blood Pressure 65 mmHg Oxygen Saturation 97 % Oxygen Therapy Mode Room air Oxygen Therapy Mode Room air General: Alert [...] swelling, No deformity, Normal gait. Integumentary: Warm, [place], Intact, No pallor, No rash, WOUND STABLE. Neurologic: Alert, Oriented, Normal sensory, Normal motor function, No focal deficits, Cranial Nerves II-XII are grossly intact, Normal deep tendon reflexes. Psychiatric: Cooperative, Appropriate mood & affect, Normal judgment, Non-suicidal. Review / Management Results review Impression and Plan Diagnosis Left patella Tendon rupture, post-op - Admitting, Medical. 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 Status post left patella tendon repair - Admitting, Medical. HTN (hypertension) - Admitting, Medical. Hypercholesterolemia - Admitting, Medical. GERD (gastroesophageal reflux disease) - Admitting, Medical. History of obstructive sleep apnea - Admitting, Medical. Morbid obesity with BMI of 40.0-44.9, adult - Admitting, Medical. Course: Plan/Respirex @ BS [...] then you may give Tylenol 650 mg PO/DC x 1. If no response in 2 [...] on filedocumented in this encounter Care Teams State [employer] Police Officer Relationship Specialty Start Date End Date Juan José Kendall MD [address] [facility] [address] [place] [id number] PCP - General Family Medicine 12/25/22 Juan José Kendall MD [address] [facility] [address] [place] [id number] Referring Physician Family Medicine 12/25/22 documented as of this encounter
--- OUTSIDE RECORDS SUMMARY | 2024-03-11 09:24 | XMS_ITS | Encounter Summary ---
Author Organization [employer] Address [address] [facility] [place] [address] Care Team Providers Care Customer Experience Associate Name Role Phone Juan José Kendall MD Primary Care Provider +- [phone] Juan José Kendall MD Unavailable [phone] Encounter Details Date Type Department Care Team (Late st Contact Info) Description 06/27/2018 Transcribed Document [facility] [place] [address] [place] [address] ProviderLaurie MD [address] [place] [address] Social History Tobacco Use Types Packs/Day Years Used Date Smoking Tobacco: Never Assessed Comments Unknown Sex and Gender Information Value Date Recorded Sex Assigned at Not on file Legal Sex Female 2:23 PM CDT Gender Identity Not on file Sexual Orientation Not on file documented as of this encounter Miscellaneous Notes * Cerner Conversion Note - Laurie ProviderMD - 06/27/2018 8:32 PM CDT Evaluation, Physical Therapy Entered On: 06/28/2018 9:30 EDT Performed On: 06/28/2018 9:24 EDT by KIARA FUNK, PT General Information, PT Visit Type, PT : Initial evaluation Patient Orders : Order Date Order Ordering 06/27/2018 20:33 PT Evaluation and Treatment Ordered By: JONG SANTACRUZ MD-ORT 06/27/2018 20:33 PT Treatment Instructions Ordered By: JONG SANTACRUZ MD-ORT Active Diagnoses : 06/27/2018 00:00 Essential (primary) hypertension 06/27/2018 00:00 Gastro-esophageal reflux disease without esophagitis 06/27/2018 00:00 Morbid (severe) obesity due to excess calories 06/27/2018 00:00 Other complications of procedures, not elsewhere classified, initial encounter 06/27/2018 00:00 Other specified postprocedural states 06/27/2018 00:00 Personal history of other diseases of the nervous system and sense organs 06/27/2018 00:00 Presence of left artificial knee joint 06/27/2018 00:00 Pure hypercholesterolemia, unspecified Therapy Diagnosis, PT : Aftercare following L patella tendon reconstruction Onset of Problem, PT : 06/28/2018 EDT Admission Date : 06/27/2018 03:45 Assisted by, PT : Occupational Therapist Personal Devices : Personal Devices Glasses Assistive Devices : Assistive Devices Brace KIARA FUNK, PT - 06/28/2018 9:24 EDT General Status Patient Received Status : Supine in bed Treatment Start Time : 06/28/2018 8:22 EDT Patient Left Status : Up in chair, Chair alarm activated, RN/PCT informed, Family/Visitors at bedside, Communication board completed, All needs met and within reach, Other: cast, SCD's RN/PCT Informed Comment : LISBETH parkinson and pt consent Treatment End Time : 06/28/2018 8:38 EDT Treatment Time : 16 Minute(s) KIARA FUNK, PT - 06/28/2018 9:24 EDT History and Environment Living Situation, Therapy : Home Patient Lives With : Spouse Persons Assisting Patient at Home : Spouse Professional Skilled Services : None Persons Providing Information : Patient, Child/Children Home Equipment Therapy, PT : Commode, Shower Equipment, Walker, Wheelchair Commode : Commode, bedside Shower Equipment : Shower Chair, with back Walker : Walker, front wheel Wheelchair : Wheelchair, standard Home Setup : One story Stairs : Yes Stair Location(s) : Outside Outside Stairs, Number of Steps : 1 KIARA FUNK, PT - 06/28/2018 9:24 EDT Prior Level of Function PT GRID Prior LOF Ambulation, Household : Independent Prior LOF Ambulation, Community : Independent Prior LOF Bed Mobility : Independent Prior LOF Toileting : Independent Prior LOF Transfer : Independent Prior LOF Wheel Chair Mobility : Assist needed KIARA FUNK, PT - 06/28/2018 9:24 EDT Upper Extremity Right UE Active ROM : WFL Right UE Strength : WFL Left UE Active ROM : WFL Left UE Strength : WFL Right UE Strength : WFL Left UE Strength : WFL KIAAR FUNK PT - 06/28/2018 9:24 EDT Lower Extremity RLE Active ROM : WFL Right LE Strength : WFL LLE Active ROM : Impaired Left LE Strength : Impaired KIARA FUNK PT - 06/28/2018 9:24 EDT Functional Mobility Mobility Grid Supine to Sit : Rehab Minimal assistance Sit to Stand : Rehab Moderate assistance Bed to Chair : Rehab Minimal assistance Stand to Sit : Rehab Minimal assistance KIARA FUNK PT - 06/28/2018 9:24 EDT Sit to Stand Device : Belt, gait, Walker, front wheel Bed to Chair Device : Belt, gait, Walker, front wheel KIARA FUNK, PT - 06/28/2018 9:24 EDT AM PAC Basic Mobility Turning Over in Bed : A little Sit Down On/Stand Up From Chair w/ Arms : A lot Move Back Lying to Sitting Side of Bed : A little Moving To/From a Bed to Chair : A little Need to Walk in Hospital Room : A little Climbing 3-5 Steps with a Railing : A lot AM-PAC Basic Mobility Raw Score : 16 AM-PAC Basic Mobility CMS 0-100% Score : 54.16 % KIARA FUNK, PT - 06/28/2018 9:24 EDT Image 1 - Images currently included in the form version of this document have not been included in the text rendition version of the form. Gait Training/Assessment, PT Weight Bearing Status : As tolerated Gait Assistance Level : Assist, minimal Walking Distance : 3ft to recliner with hard cast and RWx, pt with very flexed posture, no LOB. Ambulatory Devices : Gait belt, Walker, front wheel KIARA FUNK PT - 06/28/2018 9:24 EDT Neuromuscular Reeducation, PT Balance Comment : SBA static sitting, CGA static standing with RWx KIARA FUNK, PT - 06/28/2018 10:26 EDT Neurological/Sensory Overall Sensory Response : Intact KIARA FUNK PT - 06/28/2018 10:26 EDT Activity Tolerance, PT Activity Comment : SBA static sitting, CGA static standing with RWx KIARA FUNK PT - 06/28/2018 10:26 EDT Cognition Assessment, PT Orientation : Oriented x 4 Attention Assessment : Present KIARA FUNK, PT - 06/28/2018 10:26 EDT Edu Topics Physical Therapy Education Grid Bed Mobility Training : Returns demonstration Gait Training : Returns demonstration Role of Physical Therapy : Verbalizes understanding Safety : Verbalizes understanding Transfer Training : Returns demonstration Use of Assistive Device : Returns demonstration KIARA FUNK, PT - 06/28/2018 10:26 EDT Indication Assesessment, PT Physical Therapy Indicated : Yes PT Problem List : Impaired, endurance tolerance, Impaired, gait, Impaired, joint mobility, Impaired, standing balance, Impaired, strength, Impaired, transfers Potential Barriers To Therapy : None evident Rehabilitation Potential : Fair KIARA FUNK, PT - 06/28/2018 10:26 EDT Plan of Care, PT PT Tx Plan/Goals Established w Patient : Yes PT Frequency Rehab : Daily, twice (bid) PT Duration Rehab : Seven Days KIARA FUNK, PT - 06/28/2018 10:26 EDT Longterm Goals Other PT LTG Grid Goal #1 [...] 07/05/2018 EDT 07/05/2018 EDT Goal Status : Initial goal Initial goal Initial goal KIARA FUNK, PT - 06/28/2018 10:26 EDT KIARA FUNK, PT - 06/28/2018 10:26 EDT KIARA FUNK, PT - 06/28/2018 10:26 EDT Treatment Note Subjective Comment : Pt agreeable to PT/OT eval, states pain 6/10 at rest. Patient's Response to Treatment : Very anxious throughout, once standing pt demonstrates very forward trunk flexion, states she is unable to promote upright posture due to back pain. Additional Objective Information : Hilary sup-sit ModA sit-stand with RWx CGA gait x 3ft to recliner with RWx Assessment : Pt anxious about mobility, has had long history of multiple injuries to patellar tendon, pt currently in hard cast, not allowed active quad exercises but WBAT with RWx. Emphasize progressive gait training. Plan for Treatment : Continue KIARA FUNK, PT - 06/28/2018 10:26 EDT Pain Assessment Pain Scaled Used : 0-10 Pain scale Pain Score Pre-Intervention : 6 Pain Score Post-Intervention. : 6 Location : Knee, left Pain Improved by : Medication Pain Improved by Intervention : Yes Pain Comment : KIARA Dudley, PT - 06/28/2018 10:26 EDT Image 1 - Images currently included in the form version of this document have not been included in the text rendition version of the form. Anticipated Discharge Needs, OT/PT Anticipated Discharge to OT : Other: TBD based on progress towards goals Anticipated Home Equipment : None Recommend Continued Therapy at Discharge : Yes KIARA FUNK, PT - 06/28/2018 10:26 EDT [place] [facility] Charges Gait Training Each 15 Min : 1 PT Eval Low Complexity : 1 KIARA FUNK, PT - 06/28/2018 10:26 EDT Electronically signed by Aleks [facility] Conversion Heat Sealing Machine Operator Cerner at 07/24/2022 4:00 PM CDT documented in this encounter Plan of Treatment Not on file documented as of this encounter Visit Diagnoses Not on filedocumented in this encounter Care Teams Customer Experience Associate Relationship Specialty Start Date End Date Juan José Kendall MD [address] [facility] [address] [place] [phone] PCP - General Family Medicine 12/25/22 Juan José Kendall MD [address] [facility] [address] [place] [id number] Referring Physician Family Medicine 12/25/22 documented as of this encounter
--- OUTSIDE RECORDS SUMMARY | 2024-03-11 09:24 | XMS_ITS | Encounter Summary ---
Author Organization [employer] Address [address] [place] [address] Care Team Providers Care Customer Support Specialist Name Role Phone Juan José Kendall MD Primary Care Provider +- [phone] Juan José Kendall MD Unavailable [phone] Encounter Details Date Type Department Care Team (Late st Contact Info) Description 08/30/2018 Transcribed Document [facility] [place] [facility] [place] [address] ProviderLaurie MD [address] [place] [id number] Social History Tobacco Use Types Packs/Day Years Used Date Smoking Tobacco: Never Assessed Comments Unknown Sex and Gender Information Value Date Recorded Sex Assigned at Not on file Legal Sex Female 2:23 PM CDT Gender Identity Not on file Sexual Orientation Not on file documented as of this encounter Miscellaneous Notes * Cerner Conversion Note - Laurie ProviderMD - 08/30/2018 7:53 PM CDT Patient: TRUDI BLAIR Age: 63 years Sex: Female : 1955 Associated Diagnoses: None Author: AMRITA BARNARD MD Reason for Consultation: MRSA septicemia, enterobacter UTI CC: left leg pain HPI: Trudi Blair is a 63 yo woman with pmh of GERD, HTN, HLD, and left TKA in 2016 who was doing well until she had a left patellar tendon rupture in 06/2018 and was taken to the OR by Dr. Guerrero for tendon repair. She was more recently admitted to [facility] x2 earlier this month on [...] getting wound care. She was transferred to [facility] today for a higher level [...] iv vancomycin and ceftriaxone by primary team. ROS: Gen: No fevers, no chills, no [...] no rash, no skin breakdown Past Medical History: Arthritis Back pain GERD HLD NUVIA HTN Stress incontinence Past Surgical History: Left TKA, 2017 left patellar tendon repair, 06/2018 lumbar fusion hysterectomy right TKA right patellar tendon repair Family History: CAD HTN Cancer Social History: . lives in [place]. No tobacco, ETOH, or illicit drug use. Social & Psychosocial Habits Alcohol 06/23/2018 Alcohol Use History, Social Habits No Substance Abuse 06/23/2018 Recreational Drug Use History No Tobacco 06/23/2018 Smoking Status Never (less than 100 in l Smokeless Tobacco Status Never Medications by Classification Antimicrobials cefTRIAXone + Sodium Chloride 0.9% intravenous solution 50 m - 2 Gram, IV Piggyback, [id number], infuse over 30 Minute(s), Routine DAPTOmycin + Sodium Chloride 0.9% intravenous solution 50 mL - 700 mg, IV Piggyback, [id number], infuse over 30 Minute(s) Cardiovascular metoprolol (Lopressor) - 50 mg, Oral, Tab, Daily, Routine cloNIDine - [...] 24 hrs) Last Charted Minimum Maximum Temp 97.6 (AUGUST 30 15:00) 97.6 (AUGUST 30 15:00) 97.9 (AUGUST 30 14:37) Mon HR 82 (AUGUST 30 15:00) 82 (AUGUST 30 15:00) 82 (AUGUST 30 15:00) Resp Rate 16 (AUGUST 30 15:00) 16 (AUGUST 30 15:00) 16 (AUGUST 30 15:00) SBP 123 (AUGUST 30 15:00) 123 (AUGUST 30 15:00) 123 (AUGUST 30 15:00) DBP L 57 (AUGUST 30 15:00) L 57 (AUGUST 30 15:00) L 57 (AUGUST 30 15:00) MAP 78 (AUGUST 30 15:05) 78 (AUGUST 30 14:37) 78 (AUGUST 30:37) SpO2 99 (AUGUST 30:05) 99 (AUGUST 30:37) 99 (AUGUST 30:37) Gen: NAD. morbid obesity. pleasant HEENT: PERRL [...] and affect Labs (Last four charted values) Na 145 (AUGUST 30) K 3.8 (AUGUST 30) Cl H 113 (AUGUST 30) CO2 24 (AUGUST 30) BUN H 36 (AUGUST 30) Cr H 2.43 (AUGUST 30) Glu R 100 (AUGUST 30) Ca L 7.6 (AUGUST 30) Lactic 1.5 (AUGUST 30) PT 10.8 (AUGUST 30) INR 1.0 (AUGUST 30) PTT H 40.2 (AUGUST 30) AST H 39 (AUGUST 30) ALT 16 (AUGUST 30) ALK P 69 (AUGUST 30) T Bili 0.2 (AUGUST 30) PTN L 4.4 (AUGUST 30) ALB L 1.5 (AUGUST 30) Creatinine Clearance (Current Encounter/Past 24 Hours) Creatinine Level 2.43 mg/dL HI 08/30/2018 16:25 Bun/Creatinine 14.8 08/30/2018 16:25 Estimated Creatinine Clearance 21.90 mL/Min 08/30/2018 16:25 Micro: OSH micro results (per records provided in chart): 08/10 blood culture: staph aureus 08/10 urine cx: enterococcus faecalis 08/10 wound culture: staph aureus, staph epi 08/19 blood cx: staph hominis SJE micro results: 08/30/18 blood culture x 2: in lab Chest xray 08/30/18 read by me. no acute changes noted. no focal consolidation noted. Impression: -MRSA septicemia- reported. I attempted to call OSH micro lab but was unable to get in touch with them this evening. Will try again tomorrow. likely source is the patient's wound and left prosthetic knee infection. -Infected left leg wound- needs wound care and abx -infected left prosthetic knee- unclear how this diagnosis was made or if there were any cultures obtain at OSH. need records and culture results. Dr. Guerrero consulted. apparently plans for WANDA tomorrow per patient -enteroccocus UTI- reported at OSH. per records but have been unable to obtain actual culture results -enterobacter septicemia- per records but have been unable to obtain actual culture data -Acute renal failure- Cr 2.43 which is [...] obestiy, and renal dysfunction. -morbidy obesity --Anemia Plan: f/u blood cultures from here and from OSH I will follow up OSH blood and urine cultures tomorrow- micro lab did not respond this evening and unable to find actual final culture results in records provided wound care Agree with consult to Dr. Guerrero- apparently there are plans for WANDA tomorrow continue to closely monitor cbc with diff and cmp agree with IVFs If no AJ done at OSH then she will likely require this if she truely had MRSA septicemia checked CPK level- ok at 22 Stop vancomycin Stop ceftriaxone Start daptomycin Start ertapenem (instead of ceftriaxone due to enterobacter UTI as this can have inducible AmpC beta-lactamase) weekly PICC dressing changes- likely needs to be changed tomorrow complex set of medical issues requiring a high level of medical decision making. Patient has risk for further morbidity including loss of her limb. I discussed the patient's case with Dr. Porter this evening I called OSH micro lab Electronically signed by Interface, [facility] Conversion Medical Radiation Dosimetrist Cerner at 07/24/2022 3:43 PM CDT documented in this encounter Plan of Treatment Not on file documented as of this encounter Visit Diagnoses Not on filedocumented in this encounter Care Teams Customer Support Specialist Relationship Specialty Start Date End Date Juan José Kendall MD [address] [facility] [address] [place] [id number] PCP - General Family Medicine 12/25/22 Juan José Kendall MD [address] [facility] [address] [place] [address] Referring Physician Family Medicine 12/25/22 documented as of this encounter
--- OUTSIDE RECORDS SUMMARY | 2024-03-11 09:24 | XMS_ITS | Encounter Summary ---
Author Organization [employer] Address [address] [place] [place] [address] Care Team Providers Care Electric Meter Repairer Helper Name Role Phone Juan José Kendall MD Primary Care Provider + [phone] Juan José Kendall MD Unavailable [phone] Encounter Details Date Type Department Care Team (Late st Contact Info) Description 06/28/2018 Transcribed Document [facility] [place] [facility] [place] [address] ProviderLaurie MD [address] [place] [address] Social History Tobacco Use Types Packs/Day Years Used Date Smoking Tobacco: Never Assessed Comments Unknown Sex and Gender Information Value Date Recorded Sex Assigned at Not on file Legal Sex Female 2:23 PM CDT Gender Identity Not on file Sexual Orientation Not on file documented as of this encounter Miscellaneous Notes * Cerner Conversion Note - Laurie ProviderMD - 06/28/2018 2:42 PM CDT REBECCA Entered On: 06/28/2018 14:43 EDT Performed On: 06/28/2018 14:42 EDT by JONES HIDALGO MD-INT REBECCA Indication of use for OOCS : Acute Illness OOCS Misuse Suspected : Other Was REBECCA queried : Other Patient Advised to seek OOCS Treatment : Other Treatment to Include Limited Supply of OOCS : Other REBECCA Result : Other REBECCA Other Notes : As per Dr. Guerrero office records Patient cancelled on OOCS : Other REBECCA : . JONES HIDALGO MD-INT - 06/28/2018 14:42 EDT documented in this encounter Plan of Treatment Not on file documented as of this encounter Visit Diagnoses Not on filedocumented in this encounter Care Teams Electric Meter Repairer Helper Relationship Specialty Start Date End Date Juan José Kendall MD [address] [facility] [address] [place] [id number] PCP - General Family Medicine 12/25/22 Juan José Kendall MD [address] [facility] [address] [place] [id number] Referring Physician Family Medicine 12/25/22 documented as of this encounter
--- OUTSIDE RECORDS SUMMARY | 2024-03-11 09:24 | XMS_ITS | Encounter Summary ---
Author Organization [employer] Address [address] [place] [address] Care Team Providers Care Compound Finisher Name Role Phone Juan José Kendall MD Primary Care Provider + [phone] Juan José Kendall MD Unavailable [phone] Encounter Details Date Type Department Care Team (Late st Contact Info) Description 08/30/[address] [facility] [place] [facility] [place] [address] ProviderLaurie MD [address] [place] [address] Social History Tobacco Use Types Packs/Day Years Used Date Smoking Tobacco: Never Assessed Comments Unknown Sex and Gender Information Value Date Recorded Sex Assigned at Not on file Legal Sex Female 2:23 PM CDT Gender Identity Not on file Sexual Orientation Not on file documented as of this encounter Miscellaneous Notes * Cerner Conversion Note - Laurie Garcia MD - 08/30/2018 4:24 PM CDT Patient: TRUDI BLAIR Age: 63 years Sex: Female : 1955 Associated Diagnoses: Sepsis; Left prosthetic knee infection; Enterococcus UTI (urinary tract infection); HTN (hypertension); Hypercholesterolemia; GERD (gastroesophageal reflux disease); History of obstructive sleep apnea; At risk for sleep apnea; Stress incontinence; MRSA and Enterobacter bacteremia; Wound infection after surgery ,Left Knee; PILY (acute kidney injury); Anemia Author: JONES HIDALGO MD-INT 63 years old white female who underwent left total knee arthroplasty back in August 13, 2016 and was doing well till June 27, 2018 when she had a ruptured tendon on her left knee and underwent left patella tendon repair. Patient was recently admitted to [facility] twice, first time on 08/10/2018 and was discharged on 08/16/2018 and readmitted on 08/19/2018 with altered mental status changes secondary to MRSA bacteremia, generalized weakness, hypotension, anemia for which she had a transfusion of 2 units of packed RBCs, bacteriuria with pyuria with culture positive for Enterobacter, in addition to acute kidney injury. Patient also was found to have left prosthetic knee infection in addition to left knee wound infection. She was started on IV antibiotics in addition to wound care. Patient is morbidly obese. She was transferred today to [facility] for higher level of care. Postoperative Information Patient had surgery today and is recovering well. patient is awake, alert, cooperative, responsive, and is under no acute distress. Currently Patient is on pain medication as recommended by Patient's pain is well controlled. Patient is [...] intolerance, No heat intolerance. Immunologic: Negative. Musculoskeletal: cast posterior to her left leg. Integumentary: Left knee wound infection. Neurologic: No confusion, No numbness, No tingling, No headache. Psychiatric: No anxiety, No depression. All other systems are negative Health Status Allergies: Allergies (1) Active Reaction Biaxin Acid reflux Current medications: Home Medications (8) Active aspirin 325 mg oral tablet 325 mg = 1 Tab, Oral, BID metoclopramide 10 mg oral tablet [...] 25 mg = 1 Cap, Oral, BID Xarelto 10 mg oral tablet 10 mg = 1 Tab, Oral, Daily , Medications (34) Active Scheduled: (7) cefTRIAXone + NaCl 0.9% 50 mL 2 Gram, IV Piggyback, [id number] docusate sodium 100 mg cap 100 mg 1 Cap, Oral, BID metoclopramide 10 mg tab 10 mg 1 Tab, Oral, BID metoprolol tartrate 50 mg tab 50 mg 1 Tab, Oral, Daily pantoprazole EC 40 mg tab 40 mg 1 Tab, Oral, Daily simvaSTATin 20 mg tab 40 mg 2 Tab, Oral, At Bedtime topiramate 25 mg sprinkle cap 25 mg 1 Cap, Oral, BID Continuous: (1) NaCl 0.45% 1,000 mL 1,000 mL, IntraVENous, 100 mL/Hr PRN: (26) acetaminophen 325 mg tab 650 mg 2 [...] 0.5 mg 0.5 mL, IV Push, Q2H magnesium hydroxide 8% liq 30 mL 30 [...] 4 mg 2 mL, IV Push, Q4H potassium chloride 10 mEq 100 mL, [...] HTN (hypertension) Stress incontinence Histories Family History: Nery history significant for CAD, HTN and cancer Procedure history: Left patellar tendon reconstruction in the month of 06/2018 at 62 Years. left patellar tendon repair. in the month of 03/2018 at 62 Years. Left total knee replacement in the month of 02/2018 at 62 Years. HYSTERECTOMY. LUMBAR FUSION. SAURABH PLANTAR FASCITIS SX. R TKR. right knee patellar tendon repair. colonoscopy. Social History Patient is and has only 1 son. There is no history of smoking or drinking alcohol. Physical Examination VS/Measurements Vital Signs/Vital Measures 08/30/2018 15:05 EDT Systolic BP, Arterial Line 1 114 mmHg Diastolic BP, Arterial Line 1 68 mmHg Mean Arterial Pressure, Line 1 78 mmHg Oxygen Saturation 99 % Oxygen Therapy Mode Nasal cannula Oxygen Flow Rate 2 Liter/Min 08/30/2018 14:37 EDT Temperature Source Oral Temperature Mode Fahrenheit Temperature, Fahrenheit 97.9 Deg F Clinical Temperature, C 36.6 Deg C Systolic BP, Arterial Line 1 114 mmHg Diastolic BP, Arterial Line 1 68 mmHg Mean Arterial Pressure, Line 1 78 mmHg Oxygen Saturation 99 % Oxygen Therapy Mode Nasal cannula Oxygen Flow Rate 2 Liter/Min General: Alert and oriented, No acute distress. [...] Lymphatics: No lymphadenopathy neck, axilla, groin. Musculoskeletal: Posterior cast to her left lower extremity. Integumentary: Warm, [place], Intact, No pallor, No rash, 2 cm in diameter open wound just above left knee on the lateral aspect of her knee. Neurologic: Alert, Oriented, Normal sensory, Normal motor function, No focal deficits, Cranial Nerves II-XII are grossly intact, Normal deep tendon reflexes. Psychiatric: Cooperative, Appropriate mood & affect, Normal judgment, Non-suicidal. Review / Management Results review: Lab results 08/30/2018 15:54 EDT CRP 2.3 mg/dL HI Lactic Acid Level 1.5 mmol/L PT 10.8 Second(s) INR 1.0 PTT 40.2 Second(s) HI . Impression and Plan Diagnosis Sepsis - [...] - Admitting, Medical. Anemia - Admitting, Medical. Course: Plan/ 1-stat labs including CBC, CMP, ESR, CRP, d-dimer, coags, UA C&S, lactic acid, pro-calcitonin, uric acid, 2-stat EKG 3-stat chest x-ray 4-DVT prophylaxis 5-pain control 6-hydration 7-close monitoring blood pressure, blood glucose and renal function showing 8-close monitoring fluid and electrolytes 9-scheduled and when necessary nebs 10-sleep apnea precautions 11-fall risk precautions 12-regular diet 13-nothing by mouth after midnight 14-ID consult 15-Dr. Guerrero already notified 16-we'll follow on all test results as listed above. Electronically signed by Aleks, [facility] Conversion Horse Riding Coach Or Instructor Cerner at 07/24/2022 3:47 PM CDT documented in this encounter Plan of Treatment Not on file documented as of this encounter Visit Diagnoses Not on filedocumented in this encounter Care Teams Compound Finisher Relationship Specialty Start Date End Date Juan José Kendall MD [address] [place] [facility] [address] [place] [address] PCP - General Family Medicine 12/25/22 Juan José Kendall MD [address] [place] [facility] [address] [place] [address] Referring Physician Family Medicine 12/25/22 documented as of this encounter
--- OUTSIDE RECORDS SUMMARY | 2024-03-11 09:24 | XMS_ITS | Encounter Summary ---
Author Organization [employer] Address [address] [place] [address] Care Team Providers Care Shank Scourer Name Role Phone Juan José Kendall MD Primary Care Provider +- [phone] Juan José Kendall MD Unavailable [phone] Encounter Details Date Type Department Care Team (Late st Contact Info) Description 06/28/2018 Transcribed Document [facility] [place] [address] ProviderLaurie MD [address] [place] [address] Social History Tobacco Use Types Packs/Day Years Used Date Smoking Tobacco: Never Assessed Comments Unknown Sex and Gender Information Value Date Recorded Sex Assigned at Not on file Legal Sex Female 2:23 PM CDT Gender Identity Not on file Sexual Orientation Not on file documented as of this encounter Miscellaneous Notes * Cerner Conversion Note - Historical ProviderMD - 06/28/2018 2:00 AM CDT Pr Intern Details Entered On: 06/28/2018 2:16 EDT Performed On: 06/28/2018 2:00 EDT by Steph Avendaño RN Order Details Transport Mode Order Detail : Wheelchair Isolation Precautions Order Detail : Standard Precautions Order Detail : 0 IV Order Detail : 1 Oxygen Order Detail : 0 Nurse Collect Order Detail : 0 Lift/Transfer : Moderate assist Central Line Order Detail : No Room Service : Not Appropriate Arterial Line : No Steph Avendaño RN - 06/28/2018 2:16 EDT documented in this encounter Plan of Treatment Not on file documented as of this encounter Visit Diagnoses Not on filedocumented in this encounter Care Teams Shank Scourer Relationship Specialty Start Date End Date Juan José Kendall MD [address] [facility] [address] [place] [id number] PCP - General Family Medicine 12/25/22 Juan José Kendall MD [address] [facility] [address] [place] [id number] Referring Physician Family Medicine 12/25/22 documented as of this encounter
--- OUTSIDE RECORDS SUMMARY | 2024-03-11 09:24 | XMS_ITS | Encounter Summary ---
Author Organization [employer] Address [address] [place] [address] Care Team Providers Care Pharmaceutical Plant Operator Name Role Phone Juan José Kendall MD Primary Care Provider + [phone] Juan José Kendall MD Unavailable [phone] Encounter Details Date Type Department Care Team (Late st Contact Info) Description 06/28/2018 Transcribed Document [facility] [place] [facility] [place] [address] Laurie Garcia MD [address] [place], [place] [id number] Social History Tobacco Use Types Packs/Day Years Used Date Smoking Tobacco: Never Assessed Comments Unknown Sex and Gender Information Value Date Recorded Sex Assigned at Not on file Legal Sex Female 2:23 PM CDT Gender Identity Not on file Sexual Orientation Not on file documented as of this encounter Miscellaneous Notes * Cerner Conversion Note - Laurie ProviderMD - 06/28/2018 2:59 PM CDT Patient Education Materials Follows: What [...] pillows, this will decrease swelling ?? Continue using walker until cleared by physical therapy Bathing: ?? Do not take baths, swim, or use a hot tub for one month after surgery. ?? You must be seated to shower until you are no longer using the walker Other: ?? Leave cast in place ?? Take Xarelto 10mg once a day for 7 days. Then transition to Aspirin 325mg twice a day for 30 days. This will help prevent blood clots ?? Wear compression stocking for 6 weeks remove to inspect skin, then put back on ?? Continue to use Incentive Spirometer 10 [...] Barley. Bulgur wheat. Millet. Bran muffins. Popcorn. [place]xton wafer crackers. ?? Vegetables Sweet potatoes. Spinach. Kale. Artichokes. Cabbage. Broccoli. Green peas. Carrots. Squash. ?? Fruits Berries. Pears. Apples. Oranges. Avocados. Prunes and raisins. Dried figs. ?? Meats and Other Protein Sources Beasley, kidney, saxena, and soy beans. Split peas. [...] henry has 11 g of protein. ?? [place] seeds ??? 1 oz has 5.5 g [...] floor. ?? Place frequently used items in [id number] places ?? Keep electrical cables out of [...] ? Using the bathroom. ? Using household chocolatier or toxic chemicals. ? Touching or taking [...] on filedocumented in this encounter Care Teams Pharmaceutical Plant Operator Relationship Specialty Start Date End Date Juan José Kendall MD [address] [facility] [address] [place] [address] PCP - General Family Medicine 12/25/22 Juan José Kendall MD [address] [facility] [address] [place] [address] Referring Physician Family Medicine 12/25/22 documented as of this encounter
--- OUTSIDE RECORDS SUMMARY | 2024-03-11 09:24 | XMS_ITS | Encounter Summary ---
Author Organization [employer] Address [address] [place] [address] Care Team Providers Care Crochet Beader Name Role Phone Romulo Kendall MD Primary Care Provider +- [phone] Romulo Kendall MD Unavailable [phone] Encounter Details Date Type Department Care Team (Late st Contact Info) Description 06/28/2018 Transcribed Document [place] [address] ProviderLaurie MD [address] [place] [address] Social History Tobacco Use Types Packs/Day Years Used Date Smoking Tobacco: Never Assessed Comments Unknown Sex and Gender Information Value Date Recorded Sex Assigned at Not on file Legal Sex Female 2:23 PM CDT Gender Identity Not on file Sexual Orientation Not on file documented as of this encounter Miscellaneous Notes * Cerner Conversion Note - Laurie ProviderMD - 06/28/2018 7:58 AM CDT [place] [address], [place] [address] Patient Copy Patient Information: Name: TRUDI BLAIR Current Date: 06/28/2018 07:58:09 : 1955 Patient Address: [address] [place] [id number] Patient Attending Physician: JONES HIDALGO MD-INT Primary Care Provider: ROMULO KENDALL MD Primary Care Provider Discharge Diagnosis: Weight on Admission: 265 lb, 0 oz Comment: Follow-up Instructions: With: Address: When: JONG SANTACRUZ [facility], [address] FLOOR [place], [place] [id number] [place] [facility] (1) 1:00 PM Comments: Appointment has been [...] cramping, rapid heartbeat, difficulty sleeping, and nervousness. CIGARETTE SMOKING: The facts are clear, cigarette smoking will shorten your life. Smoking can cause many illnesses along the way. As a healthcare provider, we recommend that you stop smoking. Assistance with quitting is available by contacting 4-726-BHEH-NOW. This is a free resource providing counseling, [...] Be sure to sign up for the myContactCard patient portal, which gives you 26/10 access to your medical information ??? including these discharge instructions ??? using your computer, smartphone, or tablet. Just go to [employer] to get started. Questions? Call . [facility] would like to thank you for allowing us to assist you with your healthcare needs. BAIRON Beltran SANDRA K, (or client care representative) have received the above patient education materials/instructions and have verbalized understanding: Patient Signature _ Date/Time Patient Boring Machine Operator Helper Signature (if needed) Date/Time Clinician/Hospital Boring Machine Operator Helper Signature (if needed) Date/Time documented in this encounter Plan of Treatment Not on file documented as of this encounter Visit Diagnoses Not on filedocumented in this encounter Care Teams Crochet Beader Relationship Specialty Start Date End Date Romulo Kendall MD [address] [place] [address] PCP - General Family Medicine 12/25/22 Romulo Kendall MD [address] [place] [address] Referring Physician Family Medicine 12/25/22 documented as of this encounter
--- OUTSIDE RECORDS SUMMARY | 2024-03-11 09:24 | XMS_ITS | Encounter Summary ---
Author Organization [employer] Address [address] [place] [address] Care Team Providers Care Wall Mirror Department Supervisor Name Role Phone Juan José Kendall MD Primary Care Provider + [phone] Juan José Kendall MD Unavailable [phone] Encounter Details Date Type Department Care Team (Late st Contact Info) Description 06/28/2018 Transcribed Document [facility] [place] Family [place] [address] ProviderLaurie MD [address] [place] [address] Social History Tobacco Use Types Packs/Day Years Used Date Smoking Tobacco: Never Assessed Comments Unknown Sex and Gender Information Value Date Recorded Sex Assigned at Not on file Legal Sex Female 2:23 PM CDT Gender Identity Not on file Sexual Orientation Not on file documented as of this encounter Miscellaneous Notes * Cerner Conversion Note - Historical ProviderMD - 06/28/2018 12:18 PM CDT Discharge Instructions Entered On: 06/28/2018 12:19 EDT Performed On: 06/28/2018 12:18 EDT by JAYE MAYFIELD, Case Management-Siphon Operator DC Instructions HWD Medical Equipment For Home Use : PT HAS A WALKER AND BSC Home Health Services : PT WILL SEE SURGEON AT POST OP APPOINTMENT AND HAVE THERAPY SCHEDULED WHEN APPROPRIATE JAYE MAYFIELD, Case Management-Siphon Operator - 06/28/2018 12:18 EDT documented in this encounter Plan of Treatment Not on file documented as of this encounter Visit Diagnoses Not on filedocumented in this encounter Care Teams Wall Mirror Department Supervisor Relationship Specialty Start Date End Date Juan José Kendall MD [address] [place] [facility] [address] [place] [address] PCP - General Family Medicine 12/25/22 Juan José Kendall MD [address] [place] [facility] [address] [place] [address] Referring Physician Family Medicine 12/25/22 documented as of this encounter
--- OUTSIDE RECORDS SUMMARY | 2024-03-11 09:24 | XMS_ITS | Encounter Summary ---
Author Organization [employer] Address [address] [place] [address] Care Team Providers Care Hammer Driver Name Role Phone Juan José Kendall MD Primary Care Provider +- [phone] Juan José Kendall MD Unavailable [phone] Encounter Details Date Type Department Care Team (Late st Contact Info) Description 08/30/2018 Transcribed Document [facility] [place] [facility] [place] [address] ProviderLaurie MD [address] [place] [address] Social History Tobacco Use Types Packs/Day Years Used Date Smoking Tobacco: Never Assessed Comments Unknown Sex and Gender Information Value Date Recorded Sex Assigned at Not on file Legal Sex Female 2:23 PM CDT Gender Identity Not on file Sexual Orientation Not on file documented as of this encounter Miscellaneous Notes * Cerner Conversion Note - Laurie ProviderMD - 08/30/2018 3:41 PM CDT Pain Assessment Entered On: 09/05/2018 19:20 EDT Performed On: 09/05/2018 9:50 EDT by Jennifer Arndt, Registered Nurse Intervention Information: acetaminophen-HYDROcodone Performed by Jennifer Arndt, Registered Nurse on 09/05/2018 08:50:00 EDT acetaminophen-HYDROcodone,2Tab Oral,Pain (Severe 7-10) Pain Assessment Pain Assessment : Follow-up assessment Pain Scale Goal : 3 Pain Scale Used : 0-10 Scale Pain Intervention, Drug : Medicated Pain Improved by Intervention : Yes Jennifer Arndt, Registered Nurse - 09/05/2018 19:20 EDT Pain Scale Intensity : 4 Goodman Jennifer Mora, Registered Nurse - 09/05/2018 19:20 EDT Image 4 - Images currently included in the form version of this document have not been included in the text rendition version of the form. documented in this encounter Plan of Treatment Not on file documented as of this encounter Visit Diagnoses Not on filedocumented in this encounter Care Teams Hammer Driver Relationship Specialty Start Date End Date Juan José Kendall MD [address] [facility] [address] [place] [address] PCP - General Family Medicine 12/25/22 Juan José Kendall MD [address] [facility] [address] [place] [phone] Referring Physician Family Medicine 12/25/22 documented as of this encounter
--- OUTSIDE RECORDS SUMMARY | 2024-03-11 09:24 | XMS_ITS | Encounter Summary ---
Author Organization [employer] Address [address] [place] [address] Care Team Providers Care Speech And Language Assistant Name Role Phone Unavailable Primary Care Provider Unavailabl e Encounter Details Date Type Department Care Team (Late st Contact Info) Description 06/28/2018 Historic Encounter [address] [address] ProviderMatthew Historical Social History Tobacco [...] Associated Diagnosis Comments HEMOGLOBIN AND HEMATOCRIT Routine 06/28/2018 3:42 AM EDT documented in this encounter Results * Hemoglobin and hematocrit (06/28/2018 3:42 AM EDT) Hgb 11.6 11.2 - 15.7 Gram/dL 06/28/2018 8:07 AM EDT Comment: No Hemoglobin reference ranges [...] ??12 ??Years ??150 ??Years ??11.2 15.7 Hct 36.5 34.1 - 44.9 % 06/28/2018 8:07 AM EDT Comment: No Hematocrit reference ranges [...] ??12 ??Years ??150 ??Years ??34.1 44.9 Blood 06/28/2018 3:42 AM EDT 06/28/2018 8:04 AM EDT us Sleh Historical Provider LAB BLOOD ORDERABLES Fi nal Result [facility] [address] [phone] documented in this encounter Visit Diagnoses Not on filedocumented in this encounter
--- OUTSIDE RECORDS SUMMARY | 2024-03-11 09:24 | XMS_ITS | Encounter Summary ---
Author Organization [employer] Address [address] [place] [address] Care Team Providers Care Summer Law Clerk Name Role Phone Romulo Kendall MD Primary Care Provider +- [phone] Romulo Kendall MD Unavailable [phone] Encounter Details Date Type Department Care Team (Late st Contact Info) Description 06/28/2018 Transcribed Document [facility] [place] Family Medicine [facility] [place] [address] ProviderLaurie MD [address] [place] [address] Social History Tobacco Use Types Packs/Day [...] Laurie ProviderMD - 06/28/2018 2:59 PM CDT [place] [address], [place] [address] Patient Copy Patient Information: Name: TRUDI BLAIR Current Date: 06/28/2018 14:59:12 : 1955 Patient Address: [address] [place] [id number] Patient Attending Physician: JONES HIDALGO MD-INT Primary Care Provider: ROMULO KENDALL MD Primary Care Provider Discharge Diagnosis: GERD (gastroesophageal reflux disease); HTN (hypertension); History of obstructive sleep apnea; Hypercholesterolemia; Left patella Tendon rupture, post-op; Morbid obesity with BMI of 40.0-44.9, adult; Status post left patella tendon repair; Status post total knee replacement, 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 1 by mouth every 4-6 hours when necessary. Refills: 0. aspirin (aspirin 325 mg oral tablet) 1 Tablet(s) Oral Two Times A Day for 30 Day(s). for DVT prophylaxis to be started after finishes a course of the Xarelto 10 mg oral daily ??7 days. Refills: 0. baclofen (baclofen 10 mg oral tablet) 1 [...] 1 Tablet(s) Oral Two Times A Day. rivaroxaban (Xarelto 10 mg oral tablet) 1 Tablet(s) Oral Every Day for 7 Day(s). Refills: 0. simvastatin (simvastatin 40 mg oral tablet) 1 [...] Barley. Bulgur wheat. Millet. Bran muffins. Popcorn. Zahl wafer crackers. ?? Vegetables Sweet potatoes. Spinach. Kale. Artichokes. Cabbage. Broccoli. Green peas. Carrots. Squash. ?? Fruits Berries. Pears. Apples. Oranges. Avocados. Prunes and raisins. Dried figs. ?? Meats and Other Protein Sources Tennille, kidney, saxena, and soy beans. Split peas. [...] henry has 11 g of protein. ?? Daniels seeds ??? 1 oz has 5.5 g [...] floor. ?? Place frequently used items in jqdy-hw-xlvyi places ?? Keep electrical cables out of [...] ? Using the bathroom. ? Using household cleaning crew member or toxic chemicals. ? Touching or [...] may report side effects to FDA at 3-397-AWE-9719. What other drugs will affect acetaminophen and [...] affect acetaminophen and oxycodone, including prescription and lzkn-cfn-ycuyqzw medicines, vitamins, and herbal products. Not all [...] to ensure that the information provided by [employer]. ('[employer]') is accurate, up-to-date, and complete, but no guarantee is made to that effect. Drug information contained herein may be time sensitive. [employer] information has been compiled for use by healthcare practitioners and consumers in the [place] and therefore [employer] does not warrant that uses outside of the [place] are appropriate, unless specifically indicated otherwise. [employer] drug information does not endorse drugs, diagnose patients or recommend therapy. [employer] drug information is an informational resource designed [...] effective or appropriate for any given patient. [employer] does not assume any responsibility for any aspect of healthcare administered with the aid of information [employer] provides. The information contained herein is not intended to cover all possible uses, directions, precautions, warnings, drug interactions, allergic reactions, or adverse effects. If you have questions about the drugs you are taking, check with your doctor, nurse or pharmacist. Copyright 5142-1940 [employer]. Version: 18.02. Revision Date: 03/02/2018. CIGARETTE SMOKING: The facts are clear, cigarette smoking will shorten your life. Smoking can cause many illnesses along the way. As a healthcare provider, we recommend that you stop smoking. Assistance with quitting is available by contacting 3-898-VJIK-NOW. This is a free resource providing counseling, [...] Be sure to sign up for the [employer] patient portal, which gives you 26/10 access to your medical information ??? including these discharge instructions ??? using your computer, smartphone, or tablet. Just go to [employer] to get started. Questions? Call . [facility] would like to thank you for allowing us to assist you with your healthcare needs. IALIZABAIRON, TRUDI K, (or hr representative) have received the above patient education materials/instructions and have verbalized understanding: Patient Signature _ Date/Time Patient Shot Peen Operator Signature (if needed) Date/Time Clinician/Hospital Shot Peen Operator Signature (if needed) Date/Time documented in this encounter Plan of Treatment Not on file documented as of this encounter Visit Diagnoses Not on filedocumented in this encounter Care Teams Summer Law Clerk Relationship Specialty Start Date End Date Romulo Kendall MD [address] [facility] [address] [place] [phone] PCP - General Family Medicine 12/25/22 Romulo Kendall MD [address] [place] [facility] [address] [place] [address] Referring Physician Family Medicine 12/25/22 documented as of this encounter
--- OUTSIDE RECORDS SUMMARY | 2024-03-11 09:24 | XMS_ITS | Encounter Summary ---
Author Organization [employer] Address [address] [place] [address] Care Team Providers Care Semiconductor Packages Platemaker Name Role Phone Juan José Kendall MD Primary Care Provider +- [phone] Juan José Kendall MD Unavailable [phone] Encounter Details Date Type Department Care Team (Late st Contact Info) Description 08/30/2018 Transcribed Document [facility] [place] [address] ProviderLaurie MD [address] [place] [address] Social History Tobacco Use Types Packs/Day Years Used Date Smoking Tobacco: Never Assessed Comments Unknown Sex and Gender Information Value Date Recorded Sex Assigned at Not on file Legal Sex Female 2:23 PM CDT Gender Identity Not on file Sexual Orientation Not on file documented as of this encounter Miscellaneous Notes * Cerner Conversion Note - Laurie ProviderMD - 08/30/2018 5:29 PM CDT Patient: TRUDI BLAIR Age: 63 years Sex: Female : 1955 Associated Diagnoses: None Author: Hoa Enriquez, Pharmacist Consult: Pharmacy to dose vancomycin Consulting physician: Dr Charles Porter Indication: Infected prosthetic knee Vancomycin Goal: 15-20 mcg/mL Pharmacokinetic Parameters INITIAL: Age= 63 yo , Ht= 167.64 cm, JYC=263.73 kg, IBW = 59.3 kg, DBW = 122.73 kg, BMI = 43.7 kg/m2, Clcr est= 21.9 ml/min, kest= 0.023 h-1, t/2est= 30.14 h, Vdest= 73.6 L ( L/kg), CL= 21.9 L/H Labs: AUGUST 30 15:54 145 H 113 H 36 / 100 3.8 24 H 2.43 \ Current antibiotics/anti-infectives: ceftriaxone 2g IV Q24h A/P: 1. Give Vancomycin 1500mg IV [id number] starting 09/01/18 at 04:00 (36 hours after loading dose of 2500mg hung) 2. Pharmacy will continue to monitor, order labs and make adjustments as apporpriate. Thank you kindly for this consult, Srini Stahl.D. documented in this encounter Plan of Treatment Not on file documented as of this encounter Visit Diagnoses Not on filedocumented in this encounter Care Teams Semiconductor Packages Platemaker Relationship Specialty Start Date End Date Juan José Kendall MD [address] [facility] [address] [place] [address] PCP - General Family Medicine 12/25/22 Juan José Kendall MD [address] [facility] [address] [place] [phone] Referring Physician Family Medicine 12/25/22 documented as of this encounter
--- OUTSIDE RECORDS SUMMARY | 2024-03-11 09:24 | XMS_ITS | Encounter Summary ---
Author Organization [employer] Address [address] [facility] [place] [address] Care Team Providers Care Lunchroom Aide Name Role Phone Juan José Kendall MD Primary Care Provider +- [phone] Juan José Kendall MD Unavailable [phone] Encounter Details Date Type Department Care Team (Late st Contact Info) Description 06/27/2018 Transcribed Document [facility] [place] Family Medicine [facility] [place] [address] ProviderLaurie MD [address] [place] [id number] Social History Tobacco Use Types Packs/Day Years Used Date Smoking Tobacco: Never Assessed Comments Unknown Sex and Gender Information Value Date Recorded Sex Assigned at Not on file Legal Sex Female 2:23 PM CDT Gender Identity Not on file Sexual Orientation Not on file documented as of this encounter Miscellaneous Notes * Cerner Conversion Note - Laurie ProviderMD - 06/27/2018 8:58 PM CDT Admission History, Adult Entered On: 06/27/2018 21:02 EDT Performed On: 06/27/2018 20:58 EDT by Farheen Macedo Rn Advance Directive Patient has Advance Directive *Q : Yes, Advance Directive not with the patient Request Family/Rep to Provide Copy of AD : Yes Advance Directive Type : Living will Copy Advance Directive Verified/on Chart : No Farheen Macedo Rn - 06/27/2018 20:58 EDT Anesthesia/Transfusion History Family History of Anesthesia Reaction : No prior transfusion(s) Blood Transfusion Acceptable to Patient : Yes Transfusion History : Prior anesthesia reaction Type of Anesthesia Reaction : Excessive somnolence Family History of Anesthesia Reaction : None Farheen Macedo Rn - 06/27/2018 20:58 EDT Anticipated Discharge Needs Discharge To, Anticipated : Home Anticipated Discharge Needs at This Time : Physical Therapy Farheen Macedo Rn - 06/27/2018 20:58 EDT Education Topics, Admission Orientation DCP GENERIC CODE Advance Directives : Verbalizes understanding, Returns demonstration Allergy Band Applied : Verbalizes understanding, Returns demonstration Assessment/Vital Signs : Verbalizes understanding, Returns demonstration Bed Control : Verbalizes understanding, Returns demonstration Call Light : Verbalizes understanding, Returns demonstration Confidentiality : Verbalizes understanding, Returns demonstration Diet/Room Service : Verbalizes understanding, Returns demonstration Fall Prevention : Verbalizes understanding, Returns demonstration Hand Hygiene : Verbalizes understanding, Returns demonstration Healthcare Provider Visit : Verbalizes understanding, Returns demonstration ID Band Applied : Verbalizes understanding, Returns demonstration Isolation Precautions : Verbalizes understanding, Returns demonstration Orientation to Room/Bathroom : Verbalizes understanding, Returns demonstration Patient Bill of Rights : Verbalizes understanding, Returns demonstration Patient Rights/Responsibilities : Verbalizes understanding, Returns demonstration Patient Safety : Verbalizes understanding, Returns demonstration Personal Privacy Code : Verbalizes understanding, Returns demonstration Rapid Response Initiated by Patient/Family : Verbalizes understanding, Returns demonstration Rounding : Verbalizes understanding, Returns demonstration Siderails use/risks : Verbalizes understanding, Returns demonstration Skin Precautions : Verbalizes understanding, Returns demonstration Smoking Policy : Verbalizes understanding, Returns demonstration Telemetry Monitoring : Verbalizes understanding, Returns demonstration Television/Phone : Verbalizes understanding, Returns demonstration Visiting Policy : Verbalizes understanding, Returns demonstration Farheen Macedo Rn - 06/27/2018 20:58 EDT Functional Assessment Living Situation : Home Patient Lives With : Spouse Persons Assisting Patient at Home : Spouse Current Daily Living Assistance : None Mobility Assistance Prior to Admission : Independent Current Home Treatments : None Home Equipment : None Farheen Macedo Rn - 06/27/2018 20:58 EDT General Info Arrived From : Home Mode of Arrival on Unit : Ambulatory Legal Guardian : Spouse Want Family/Rep/Phys Notified of Admit : No Emergency Contact #1 : Mauricio Emergency Contact #1 Emergency Contact #1 Relationship : spouse Emergency Contact #2 : - Emergency Contact #2 Phone Number : - Emergency Contact #2 Relationship : - Information Obtained From : Patient Primary Language : Wallisian Preferred Communication Mode : Verbal Communication Barrier : None Objects to Sharing Info w Family : No Farheen Macedo Rn - 06/27/2018 20:58 EDT Fall Risk Scales ABCs Fall Injury Risk Identification : Bones, Surgery ABC Fall Injury Risk : Moderate to high injury risk Injury Moderate to High Risk Interventions : Bed alarm on, Chair alarm on, Personal alarm on, Supervise toileting as indicated, Wrist band (fall risk) on per policy [place] Hx Falls Immediate/Within 3 Months : No [place] Secondary Diagnosis : Yes [place] Use of Ambulatory Aid : Bed rest/Nurse assist [place] IV Therapy or IV Access : Yes [place] Gait/Transferring : Impaired [place] Mental Status : Oriented to own ability [place] Fall Risk Score : 55 [place] Fall Scale Risk Level : 25-45 Medium Risk [place] Fall Interventions : Adequate lighting, Bed in low position, Call device within reach, Fall prevention handout/education per facility policy, Frequent orientation to call device, Frequent orientation to surroundings, Hourly comfort/safety rounds, Non-slip footwear, Personal items within reach, Reinforced to call for assistance before getting out of bed, Room free of clutter/spills, Upper side-rails up, Wheels locked, Wires/Cords secured Fall Moderate to High Risk Interventions : Bed alarm on, Chair alarm on, High Risk for Fall sign in place per policy, Supervise toileting as indicated, Personal alarm on, Transport methods appropriate to patient, Visual cues in place, Wrist band (fall risk) on Farheen Macedo Rn - 06/27/2018 20:58 EDT Fall Risk Education Grid Alarms : Verbalizes understanding, Returns demonstration Assistive Equipment Use : Verbalizes understanding, Returns demonstration Bed Height/Stabilization : Verbalizes understanding, Returns demonstration Call light use : Verbalizes understanding, Returns demonstration Door Open : Verbalizes understanding, Returns demonstration Environmental Management : Verbalizes understanding, Returns demonstration Eyeglasses Use : Verbalizes understanding, Returns demonstration Fall Community Resources : Verbalizes understanding, Returns demonstration Fall Contract/Letter : Verbalizes understanding, Returns demonstration Fall Prevention in the Home : Verbalizes understanding, Returns demonstration Fall Prevention Protocol : Verbalizes understanding, Returns demonstration Hearing Aid Use : Verbalizes understanding, Returns demonstration Home Risk Assessment : Verbalizes understanding, Returns demonstration Need Constant Observation : Verbalizes understanding, Returns demonstration Night Light Use : Verbalizes understanding, Returns demonstration Nonskid Footwear Use : Verbalizes understanding, Returns demonstration Notification of Staff When Leaving : Verbalizes understanding, Returns demonstration Orthostatic Hypotension Precautions : Verbalizes understanding, Returns demonstration Personal Article Availability : Verbalizes understanding, Returns demonstration Prevention Responsibility Family : Verbalizes understanding, Returns demonstration Prevention Responsibility Patient : Verbalizes understanding, Returns demonstration Risk Alert Methods : Verbalizes understanding, Returns demonstration Risk Factors : Verbalizes understanding, Returns demonstration Safety Aids : Verbalizes understanding, Returns demonstration Siderails use/risks : Verbalizes understanding, Returns demonstration Special Assistive Devices : Verbalizes understanding, Returns demonstration Staff Responsiveness : Verbalizes understanding, Returns demonstration Symptom Identification & Action Plan *Q : Verbalizes understanding, Returns demonstration Symptom Reporting : Verbalizes understanding, Returns demonstration Toileting Schedule : Verbalizes understanding, Returns demonstration Transfer/Mobility Techniques : Verbalizes understanding, Returns demonstration Urinal/Bedpan Availability : Verbalizes understanding, Returns demonstration Wait for Assistance : Verbalizes understanding, Returns demonstration Wheelchair Safety : Verbalizes understanding, Returns demonstration Farheen Macedo Rn - 06/27/2018 20:58 EDT Barriers to Learning : None evident Individuals Taught : Patient Readiness to Learn : Cooperative Baseline Knowledge of Topic : Good Teaching Method : Explanation Learning Style Preferences Family : Verbal explanation Learning Style Preferences Patient : Verbal explanation Fall Risk Scale Calc Temp : 0 Farheen Macedo Rn - 06/27/2018 20:58 EDT Health Histories Smoking Status : Never (less than 100 in lifetime; none in last 30 days) Smokeless Tobacco Status : Never Fahreen Macedo Rn - 06/27/2018 20:58 EDT Social History (As Of: 06/27/2018 21:02:36 EDT) Tobacco: Never (less than 100 in [...] Source : Stated Height Entry Format : [place] Height, Feet : 5 ft(Converted to: 152 cm, 60 Inch) Height, Inches : 6 Inch(Converted to: 0 ft 6 Inch, 15.24 cm) Clinical Height : 167.64 cm Weight Source : Standing scale Weight Entry Format : [place] Clinical Dosing Weight : 120.45 kg Weight, Pounds : 265 lb Body Surface Area (BSA) : 2.26 m2 Body Mass Index : 42.9 kg/m2 (>HHI) [place] Body Weight : 59 kg Farheen Macedo Rn - 06/27/2018 20:58 EDT Infectious Disease History Infectious Disease History : Chicken pox/Shingles, Influenza, Measles, Mononucleosis, Mumps Fever/Chills Last 48 Hours : No Travel To Regions with Travel Advisories : No Travel Outside [place] Within Last 30 Days : No Contact With Traveler to Advisory Region : No Tuberculosis Symptoms : None Farheen Macedo Rn - 06/27/2018 20:58 EDT Tetanus Immunization Status Previous Tetanus Immunizations : No qualifying data available. Tetanus Immunization : Greater than 5 years Farheen Macedo Rn - 06/27/2018 20:58 EDT Influenza Vaccine Asmt, Adult Previous Vaccines from Immunization Schedule : No qualifying data available. Influenza Immunization, Current Season : Yes Farheen Macedo Rn - 06/27/2018 20:58 EDT Pneumococcal Vaccine Previous Vaccines from Immunization Schedule : No qualifying data available. Pneumonia Immunization Received : No Pneumococcal Risk Assessment < Age 65 : None Farheen Macedo Rn - 06/27/2018 20:58 EDT Nutrition History Feeding Ability : Independent Adaptive Feeding Equipment : Regular Oral Medication Administration : By mouth Eating Poorly Due to Decreased Appetite : No Unplanned Weight Loss in Past 3-6 Months : No Malnutrition Screening Tool Total(mal) : 0 Malnutrition Screening Tool Risk Level : Patient not at risk Farheen Macedo Rn - 06/27/2018 20:58 EDT Psychosocial History Does Someone Depend on You for Care? : No Do You Have a History of the Following? : Patient denies history Currently in Unsafe Situation : No Tried to Harm Yourself in the Past? : No Thoughts of Harming/Killing Yourself : No Farheen Macedo Rn - 06/27/2018 20:58 EDT Sleep Apnea Risk Assmt BiPAP/CPAP Ordered for Home Use : Yes Hx of Obstructive Sleep Apnea Diagnosis : Yes BiPAP/CPAP Used at Home : No Reason BiPAP/CPAP Not Used at Home : patient took it back Age over 50 Years Old : Yes Gender Male : No Farheen Macedo Rn - 06/27/2018 20:58 EDT Spiritual/Cultural Needs Significant Loss/Crisis in Past 3 Years : No Any Spiritual/Cultural Needs or Requests : Yes Farheen Macedo Rn - 06/27/2018 20:58 EDT Valuables and Belongings Valuables and Belongings : Clothing, Personal devices, Assistive devices Clothing : Common streetwear Clothing Disposition : Bedside Personal Device Disposition : With family Personal Devices : Glasses Assistive Devices From Home : Brace Assistive Device Disposition : With family Farheen Macedo Rn - 06/27/2018 20:58 EDT Electronically signed by Aleks [facility] Conversion Housekeeping Manager Cerner at 07/24/2022 3:54 PM CDT documented in this encounter Plan of Treatment Not on file documented as of this encounter Visit Diagnoses Not on filedocumented in this encounter Care Teams Lunchroom Aide Relationship Specialty Start Date End Date Juan José Kendall MD [address] [facility] [address] [place] [id number] PCP - General Family Medicine 12/25/22 Juan José Kendall MD [address] [facility] [address] [place] [id number] Referring Physician Family Medicine 12/25/22 documented as of this encounter
--- OUTSIDE RECORDS SUMMARY | 2024-03-11 09:24 | XMS_ITS | Encounter Summary ---
Author Organization [employer] Address [address] [address] [facility] [place] [address] Care Team Providers Care Registered Health Nurse Name Role Phone Unavailable Primary Care Provider Unavailabl e Encounter Details Date Type Department Care Team (Late st Contact Info) Description 06/28/2018 Historic Encounter [address] [address] ProviderTisha Historical Social History Tobacco [...] Procedure Name Priority Date/Time Associated Diagnosis Comments [facility] BASIC METABOLIC PANEL ([facility] DATA CONV) Routine 06/28/2018 3:42 AM EDT documented in this encounter Results * (ABNORMAL) [facility] BASIC METABOLIC PANEL ([facility] DATA CONV) (06/28/2018 3:42 AM EDT) Glucose Level 145(H) 74 - 106 mg/dL 06/28/2018 8:20 AM EDT Comment: [facility] has become aware of sulfasalazine and sulfapyridine [...] administration of the drug. Blood Urea Nitrogen 10 7 - 22 mg/dL 06/28/2018 8:20 AM EDT Creatinine Level 0.97 0.55 - 1.02 mg/dL 06/28/2018 8:20 AM EDT Sodium Level 139 136 - 146 mmol/L 06/28/2018 8:20 AM EDT Potassium Level 4.2 3.5 - 5.1 mmol/L 06/28/2018 8:20 AM EDT Chloride Level 110 102 - 112 mmol/L 06/28/2018 8:20 AM EDT Carbon Dioxide Level 25 21 - 32 mmol/L 06/28/2018 8:20 AM EDT Anion Gap 8(L) 9 - 20 06/28/2018 8:20 AM EDT Calcium Level 8.1(L) 8.5 - 10.1 mg/dL 06/28/2018 8:20 AM EDT Bun/Creatinine 10.3 8.0 - 20.0 06/28/2018 8:20 AM EDT eGFR NonAfrican 58(L) >=60 mL/min/1. 73m2 06/28/2018 8:20 AM EDT Comment: GFR <60 suggests chronic kidney disease, if found over 3 month period. GFR <15 indicates renal failure. eGFR >60 >=60 mL/min/1. 73m2 06/28/2018 8:20 AM EDT Comment: GFR <60 suggests chronic kidney disease, if found over 3 month period. GFR <15 indicates renal failure. Blood 06/28/2018 3:42 AM EDT 06/28/2018 8:04 AM EDT [facility] Historical Provider LAB BLOOD ORDERABLES Fi nal Result [facility] [address] [id number], [facility] [phone] documented in this encounter Visit Diagnoses Not on filedocumented in this encounter
--- OUTSIDE RECORDS SUMMARY | 2024-03-11 09:24 | XMS_ITS | Encounter Summary ---
Author Organization [employer] Address [address] [place] [address] Care Team Providers Care Shoemaker Custom Name Role Phone Juan José Kendall MD Primary Care Provider +- [phone] Juan José Kendall MD Unavailable [phone] Encounter Details Date Type Department Care Team (Late st Contact Info) Description 06/27/2018 Transcribed Document [facility] [place] Family [place] [address] ProviderLaurie MD [address] [place] [id number] Social History Tobacco Use Types Packs/Day Years [...] PM CDT Pain Assessment Entered On: 06/28/2018 2:10 EDT Performed On: 06/27/2018 23:13 EDT by Steph Avendaño RN Intervention Information: morphine Performed by Farheen Macedo Rn on 06/27/2018 22:13:00 EDT morphine,30mg Oral Pain Assessment Pain Assessment [...] on filedocumented in this encounter Care Teams Shoemaker Custom Relationship Specialty Start Date End Date Juan José Kendall MD [address] [facility] [address] [place] [phone] PCP - General Family Medicine 12/25/22 Juan José Kendall MD [address] [place] [address] [address] [place] [phone] Referring Physician Family Medicine 12/25/22 documented as of this encounter
--- OUTSIDE RECORDS SUMMARY | 2024-03-11 09:24 | XMS_ITS | Encounter Summary ---
Author Organization [employer] Address [address] [place] [address] Care Team Providers Care Software Engineer Intern Name Role Phone Juan José Kendall MD Primary Care Provider + [phone] Juan José Kendall MD Unavailable [phone] Encounter Details Date Type Department Care Team (Late st Contact Info) Description 06/28/2018 Transcribed Document [facility] [place] Family Medicine [facility] [place] [address] ProviderLaurie MD [address] [place] [id number] Social History Tobacco Use Types Packs/Day Years Used Date Smoking Tobacco: Never Assessed Comments Unknown Sex and Gender Information Value Date Recorded Sex Assigned at Not on file Legal Sex Female 2:23 PM CDT Gender Identity Not on file Sexual Orientation Not on file documented as of this encounter Miscellaneous Notes * Cerner Conversion Note - Laurie ProviderMD - 06/28/2018 8:40 PM CDT Patient: TRUDI BLAIR Age: 62 years Sex: Female : 1955 Associated Diagnoses: Left patella Tendon rupture, post-op; Status post total knee replacement, 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 Guerrero after it was a ruptured while she was sitting in her bed. 1???benign essential hypertension, all blood pressure medications were on hold for systolic blood pressure less than 130 and resumed 1 blood pressure became stabilized 2???hypercholesterolemia, simvastatin 40 mg was given daily at bedtime 3???GERD, Protonix 40 mg was given daily 4???history of obstructive sleep apnea, oxygen and BiPAP were on board 5???morbid obesity with BMI of 42.9, patient was on sleep apnea precautions. Discharge Information Patient had surgery and is recovering well. patient is awake, alert, cooperative, responsive, and is under no acute distress. Patient is on pain medication as recommended by DR Guerrero. Patient's pain is well controlled. Patient is on DVT prophylaxis and also on scheduled bowel regimen. Urine out-put is adequate. Started on clear liquid diet & advanced as tolerated to regular diet. Started on PT/OT and is participating well with rehabilitation. Review of Systems Constitutional: No fever, No weakness, No fatigue. Eye: No recent visual problem, No double vision, No visual disturbances. Ear/Nose/Mouth/Throat: No nasal congestion, No sore throat. Respiratory: No shortness of breath, No cough, No wheezing. Cardiovascular: No chest pain, No tachycardia. Gastrointestinal: No nausea, No vomiting. Genitourinary: Negative. Musculoskeletal: Left lower extremity in a cast. Integumentary: No rash, No pruritus. Neurologic: Alert and oriented X4, no dizziness. Health Status Allergies: Allergies (1) Active Reaction Biaxin Acid reflux Current medications: No qualifying data available Problem list: Active Problems (7) Arthritis Back pain GERD (gastroesophageal reflux disease) High cholesterol History of obstructive sleep apnea HTN (hypertension) Stress incontinence Physical Examination VS/Measurements Vital Measurements 06/28/2018 10:00 EDT Temperature Source Oral Temperature Mode Fahrenheit Temperature, Fahrenheit 97.9 Deg F Clinical Temperature, C 36.6 Deg C Heart Rate Monitored 68 bpm Respiratory Rate 18 Breaths/Min Systolic Blood Pressure 103 mmHg Diastolic Blood Pressure 53 mmHg LOW Mean Arterial Pressure (MAP)-BMDI 65 Oxygen Saturation 100 % General: Alert and [...] axilla, groin. Musculoskeletal: Normal strength, No swelling, Left lower extremity in a cast. Integumentary: Warm, Intact, No rash, WOUND STABLE. Neurologic: Alert, Oriented, No focal deficits. Psychiatric: Cooperative, Appropriate mood & affect. Review / Management Results review: All Results 06/28/2018 3:42 EDT Sodium Level 139 mmol/L Potassium Level 4.2 mmol/L Chloride Level 110 mmol/L Carbon Dioxide Level 25 mmol/L Anion Gap 8 LOW Glucose Level 145 mg/dL HI Blood Urea Nitrogen 10 mg/dL Creatinine Level 0.97 mg/dL eGFR >60 mL/min/1.73m2 eGFR NonAfrican 58 mL/min/1.73m2 LOW Bun/Creatinine 10.3 Calcium Level 8.1 mg/dL LOW Hgb 11.6 Gram/dL Hct 36.5 % . Condition: Fair. Discharge Plan Discharge Summary Plan Discharge Status: stable. Orders Order Profile (Selected) Inpatient Orders Ordered Discharge Notification Pharmacy: Start: 06/28/18 14:42:46 EDT Discharge: Start: 06/28/18 14:42:00 EDT, Discharge to: Home, Other DC instructions: May go home from medical standpoint and if she meets all the criteria for discharge. senior production planner as well as nursing staff to follow up on Dr. Guerrero recommendations. Diagnosis Left patella Tendon rupture, post-op - Discharge, Medical. 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 Status post left patella tendon repair - Discharge, Medical. HTN (hypertension) - Discharge, Medical. Hypercholesterolemia - Discharge, Medical. GERD (gastroesophageal reflux disease) - Discharge, Medical. History of obstructive sleep apnea - Discharge, Medical. Morbid obesity with BMI of 40.0-44.9, adult - Discharge, Medical. Course Improving. Stable. Plan/ [...] Oral, Tab, Daily, # 7 Tab, 0 Refill(s), other reason (Rx) aspirin 325 mg oral tablet: 1 Tab, Oral, Tab, BID, for DVT prophylaxis to be started after finishes a course of the Xarelto 10 mg oral daily ??7 days, # 60 Tab, 0 Refill(s), other reason (Rx) Documented Medications Documented Metoprolol Tartrate: 50 mg, Oral, Daily, 0 Refill(s) baclofen 10 mg oral tablet: 1 Tab, Oral, QAM, 1 tab in am, 2 in pm, 0 Refill(s) baclofen 10 mg oral tablet: 2 Tab, Oral, At Bedtime, PRN Spasms, 0 Refill(s) celecoxib: 200 mg, Oral, Daily, 0 Refill(s) gabapentin 300 mg oral capsule: 1 Cap, Oral, BID, 0 Refill(s) metoclopramide 10 mg oral tablet: 1 Tab, Oral, BID, 0 Refill(s) morphine 30 mg/12 hr oral tablet, extended release: 1 Tab, Oral, BID, sometimes takes 2 tablets at bedtime, 0 Refill(s) omeprazole 20 mg oral delayed release tablet: 1 Tab, Oral, Daily, 0 Refill(s) oxybutynin 5 mg oral tablet: 1 Tab, Oral, BID, 0 Refill(s) potassium chloride 20 mEq oral tablet, extended release: 1 Tab, Oral, BID, 0 Refill(s) simvastatin 40 mg oral tablet: 1 Tab, Oral, At Bedtime, 0 Refill(s) topiramate 25 mg oral capsule: 1 Cap, Oral, BID, 0 Refill(s). Impression and Plan twt 40 mn documented in this encounter Plan of Treatment Not on file documented as of this encounter Visit Diagnoses Not on filedocumented in this encounter Care Teams Software Engineer Intern Relationship Specialty Start Date End Date Juan José Kendall MD [address] [facility] [address] [place] [phone] PCP - General Family Medicine 12/25/22 Juan José Kendall MD [address] [place] [address] [place] [phone] Referring Physician Family Medicine 12/25/22 documented as of this encounter
--- OUTSIDE RECORDS SUMMARY | 2024-03-11 09:24 | XMS_ITS | Encounter Summary ---
Author Organization [employer] Address [address] [place] [address] Care Team Providers Care Laundry Clerk Name Role Phone Juan José Kendall MD Primary Care Provider [phone]- [phone] Juan José Kendall MD Unavailable [phone] Encounter Details Date Type Department Care Team (Late st Contact Info) Description 06/28/2018 Transcribed Document [facility] [place] [address] ProviderLaurie MD [address] [place] [id number] Social History Tobacco Use Types Packs/Day Years Used Date Smoking Tobacco: Never Assessed Comments Unknown Sex and Gender Information Value Date Recorded Sex Assigned at Not on file Legal Sex Female 2:23 PM CDT Gender Identity Not on file Sexual Orientation Not on file documented as of this encounter Miscellaneous Notes * Cerner Conversion Note - Laurie ProviderMD - 06/28/2018 10:16 AM CDT Patient: TRUDI BLAIR Age: 62 years Sex: Female : 1955 Associated Diagnoses: None Author: Boom Dennis, Pharmacist Pharmacy verified patient's allergies and home medication list with the patient and pharmacy. Records are as follows: Home Medications (12) Active baclofen 10 mg oral tablet 10 mg = 1 Tab, Oral, QAM baclofen 10 mg oral tablet 20 mg = 2 Tab, PRN, Oral, At Bedtime celecoxib 200 mg, Oral, Daily gabapentin 300 [...] 25 mg = 1 Cap, Oral, BID Allergies (1) Active Reaction Biaxin Acid reflux Thank you, Boom Dennis, PharmD documented in this encounter Plan of Treatment Not on file documented as of this encounter Visit Diagnoses Not on filedocumented in this encounter Care Teams Laundry Clerk Relationship Specialty Start Date End Date Juan José Kendall MD [address] [address] [address] [place] [address] PCP - General Family Medicine 12/25/22 Juan José Kendall MD [address] [facility] [address] [place] [address] Referring Physician Family Medicine 12/25/22 documented as of this encounter
--- OUTSIDE RECORDS SUMMARY | 2024-03-11 09:24 | XMS_ITS | Encounter Summary ---
Author Organization [employer] Address [address] [place] [address] Care Team Providers Care Physician Assistant Surgery Name Role Phone Juan José Kendall MD Primary Care Provider [phone]- [phone] Juan José Kendall MD Unavailable [phone] Encounter Details Date Type Department Care Team (Late st Contact Info) Description 06/28/2018 Transcribed Document [facility] [place] [address] ProviderLaurie MD [address] [place] [id number] Social History Tobacco Use Types Packs/Day Years Used Date Smoking Tobacco: Never Assessed Comments Unknown Sex and Gender Information Value Date Recorded Sex Assigned at Not on file Legal Sex Female 2:23 PM CDT Gender Identity Not on file Sexual Orientation Not on file documented as of this encounter Miscellaneous Notes * Cerner Conversion Note - Laurie ProviderMD - 06/28/2018 2:58 PM CDT Nursing Discharge Summary Entered On: 06/28/2018 14:59 EDT Performed On: 06/28/2018 14:58 EDT by Alexandria Dalton, petroleum refinery operator Documentation Patient Disposition, General : Discharge Discharge To : Home with ambulatory/outpatient follow-up Mode Of Departure, General Discharge : Private vehicle Accompanied By, Discharge : Care provider IV Discontinued : Yes Personal Belongings With Patient : Yes Prescriptions Given to Patient : Yes Discharge Instructions Reviewed With, Opportunity For Questions Given : Patient Number of Prescriptions Given : 2 Teaching Method : Demonstration, Explanation, Printed materials Teaching Evaluation : Verbalizes understanding Alexandria Dalton RN - 06/28/2018 14:58 EDT documented in this encounter Plan of Treatment Not on file documented as of this encounter Visit Diagnoses Not on filedocumented in this encounter Care Teams Physician Assistant Surgery Relationship Specialty Start Date End Date Juan José Kendall MD [address] [facility] [address] [place] [phone] PCP - General Family Medicine 12/25/22 Juan José Kendall MD [address] [facility] [address] [place] [address] Referring Physician Family Medicine 12/25/22 documented as of this encounter
--- OUTSIDE RECORDS SUMMARY | 2024-03-11 09:24 | XMS_ITS | Encounter Summary ---
Author Organization [employer] Address [address] [place] [address] Care Team Providers Care Ambulatory Services Representative Name Role Phone Unavailable Primary Care Provider Unavailabl e Encounter Details Date Type Department Care Team (Late st Contact Info) Description 08/30/2018 Historic Encounter [facility] Radiology 1 [place] [address] Irina Grande MD [facility] [place] [address] Social History Tobacco Use Types Packs/Day Years [...] Name Priority Date/Time Associated Diagnosis Comments XR CHEST AP PORTABLE Routine 08/30/2018 7:01 PM EDT CRP C-REACTIVE PROTEIN ([facility] DATA CONV) Routine 08/30/2018 3:54 PM EDT ESR SEDIMENTATION RATE AUTO ([facility] DATA CONV) Routine 08/30/2018 3:54 PM EDT CULTURE, BLOOD ([facility] DATA CONV) Routine 08/30/2018 3:54 PM EDT D DIMER QUANTITATIVE ([facility] DATA CONV) Routine 08/30/2018 3:54 PM EDT CK CREATINE KINASE ([facility] DATA CONV) Routine 08/30/2018 3:54 PM EDT LACTIC ACID LEVEL ([facility] DATA CONV) Routine 08/30/2018 3:54 PM EDT CMP COMPREHENSIVE METABOLIC PANEL ([facility] DATA CONV) Routine 08/30/2018 3:54 PM EDT PROCALCITONIN ([facility] DATA CONV Routine 08/30/2018 3:54 PM EDT PTT ([facility] DATA CONV) Routine 08/30/2018 3:54 PM EDT PT/INR PROTHROMBIN TIME ([facility] DATA CONV) Routine 08/30/2018 3:54 PM EDT URIC ACID Routine 08/30/2018 3:54 PM EDT CULTURE, BLOOD ([facility] DATA CONV) Routine 08/30/2018 3:47 PM EDT documented in this encounter Results * XR chest AP portable (08/30/2018 7:01 PM EDT) Anatomical Region Laterality Modality Chest X-Ray 08/30/2018 7:01 PM EDT Narrative 08/31/2018 2:11 PM EDT PORTABLE CHEST ??08/30/2018 3:16 PM HISTORY: Preoperative respiratory clearance COMPARISON: ??June 23, 2018 FINDINGS: The left-sided PICC line tip terminates in the SVC. The retrocardiac opacity is consistent with hiatal hernia and is unchanged. The cardiac silhouette is normal in size. The aortic contours are normal. The mediastinal and hilar structures are unremarkable. There is a left basilar opacity, likely atelectasis. There is no pneumothorax. The osseous structures ??are unremarkable . ? IMPRESSION: Left basilar opacity, likely atelectasis. ?? Images reviewed, interpreted, and dictated by Dr. Irina Grande. Transcribed by Torey Patel PA-C. I have personally viewed, interpreted and dictated the examination. I have read and agree with the above final transcribed report. Procedure Note Irina Grande MD - 07/21/2022 PORTABLE CHEST 08/30/2018 3:16 PM HISTORY: Preoperative respiratory clearance COMPARISON: June 23, 2018 FINDINGS: The left-sided PICC line tip terminates in the SVC. The retrocardiac opacity is consistent with hiatal hernia and is unchanged. The cardiac silhouette is normal in size. The aortic contours are normal. The mediastinal and hilar structures are unremarkable. There is a left basilar opacity, likely atelectasis. There is no pneumothorax. The osseous structures are unremarkable . IMPRESSION: Left basilar opacity, likely atelectasis. Images reviewed, interpreted, and dictated by Dr. Irina Grande. Transcribed by Torey Patel PA-C. I have personally viewed, interpreted and dictated the examination. I have read and agree with the above final transcribed report. Irina Grande MD IM DIAGNOSTIC IMAGING ORDERABL ES Final Result * CULTURE, BLOOD ([facility] DATA CONV) (08/30/2018 3:54 PM EDT) Final No growth at 5 days. Final Pre No growth at 4 days. Pre Pre No growth at 3 days. Pre Pre No growth at 2 days. Pre Pre No growth at 1 day. Pre Pre Culture less than 24 Hrs old Pre Blood 08/30/2018 3:54 PM EDT 08/30/2018 9:44 PM EDT [facility] Historical Provider LAB BLOOD ORDERABLES Fi nal Result [facility] [address] [phone] * (ABNORMAL) CRP C-REACTIVE PROTEIN ([facility] DATA CONV) (08/30/2018 3:54 PM EDT) CRP 2.3(H) 0.0 - 0.9 mg/dL 08/30/2018 8:20 PM EDT Blood 08/30/2018 3:54 PM EDT 08/30/2018 8:03 PM EDT [facility] Provider LAB BLOOD ORDERABLES Fi nal Result Performing Organization Address City/[facility]/ZIP Co de Phone Number [facility] [address] [phone] * LACTIC ACID LEVEL ([facility] DATA CONV) (08/30/2018 3:54 PM EDT) Lactic Acid Level 1.5 0.4 - 2.0 mmol/L 08/30/2018 8:22 PM EDT Blood 08/30/2018 3:54 PM EDT 08/30/2018 8:03 PM EDT [facility] Provider LAB BLOOD ORDERABLES Fi nal Result Performing Organization Address [facility] Co de Phone Number [facility] [address] [phone] * (ABNORMAL) D DIMER QUANTITATIVE ([facility] DATA CONV) (08/30/2018 3:54 PM EDT) Ddimer Quant 2200(H) <=500 ng/mL 08/30/2018 8:35 PM EDT Comment: A normal D-dimer result <500 ng/mL (FEU) has a negative predictive value of approximately 95% for the exclusion of acute pulmonary embolism (PE) or deep vein thrombosis when there is low or moderate pretest PE probability. D-dimer Normal Rates First trimester: 50-950 ng/mL (FEU) Second trimester: 302-1290 ng/mL (FEU) Third trimester: 130-1700 ng/mL (FEU) Blood 08/30/2018 3:54 PM EDT 08/30/2018 8:03 PM EDT [facility] Provider LAB BLOOD ORDERABLES Fi nal Result Performing Organization Address City/[facility] Co de Phone Number [facility] [address] [phone] * ESR SEDIMENTATION RATE AUTO ([facility] DATA CONV) (08/30/2018 3:54 PM EDT) [facility] Sed Rate Auto 10 0 - 30 mm/Hr 08/30/2018 8:25 PM EDT Comment: No Sedimentation Rate reference ranges defined for patients with an ? Unknown? gender. Please apply existing Male/Female reference ranges as clinically indicated. Assay ?Sedimentation Rate Automated Male ??0 ??Minutes ??50 ??Years ??0 15 Female ??0 ??Minutes ??50 ??Years ??0 20 Male ??50 ??Years ??150 ??Years ??0 20 Female ??50 ??Years ??150 ??Years ??0 30 Blood 08/30/2018 3:54 PM EDT 08/30/2018 8:03 PM EDT [facility] Historical Provider LAB BLOOD ORDERABLES Fi nal Result Performing Organization Address [facility]/State/ZIP Co de Phone Number [facility] [address] [phone] * (ABNORMAL) CK CREATINE KINASE ([facility] DATA CONV) (08/30/2018 3:54 PM EDT) [facility] CK 22(L) 26 - 192 Units/Lite r 08/30/2018 11:20 PM EDT Comment: No CK reference ranges defined for patients with an ? Unknown? gender. Please apply existing Male/Female reference ranges as clinically indicated. Assay ? Sex ?Age from ?Units ?Age to ?Units ? Normal Low ?Normal High ?CK ?Male ? 0 ?Minutes ?150 ?Years ?39 ? 308 ?? CK ?Female ? 0 ?Minutes ?150 ?Years ? 26 ? 192 Blood 08/30/2018 3:54 PM EDT 08/30/2018 11:06 PM EDT [facility] Provider LAB BLOOD ORDERABLES Fi nal Result Performing Organization Address [facility] Phone Number [facility] [address] [phone] * (ABNORMAL) PTT ([facility] DATA CONV) (08/30/2018 3:54 PM EDT) PTT 40.2(H) 24.5 - 30.1 Second(s) 08/30/2018 8:22 PM EDT Blood 08/30/2018 3:54 PM EDT 08/30/2018 8:03 PM EDT [facility] Provider LAB BLOOD ORDERABLES Fi nal Result Performing Organization Address [facility] de Phone Number [facility] [address] [phone] * (ABNORMAL) CMP COMPREHENSIVE METABOLIC PANEL ([facility] DATA CONV) (08/30/2018 3:54 PM EDT) Sodium Level 145 136 - 146 mmol/L 08/30/2018 8:25 PM EDT Potassium Level 3.8 3.5 - 5.1 mmol/L 08/30/2018 8:25 PM EDT Chloride Level 113(H) 102 - 112 mmol/L 08/30/2018 8:25 PM EDT Carbon Dioxide Level 24 21 - 32 mmol/L 08/30/2018 8:25 PM EDT Anion Gap 12 9 - 20 08/30/2018 8:25 PM EDT Calcium Level 7.6(L) 8.5 - 10.1 mg/dL 08/30/2018 8:25 PM EDT Glucose Level 100 74 - 106 mg/dL 08/30/2018 8:25 PM EDT Comment: [facility] has become aware of sulfasalazine and sulfapyridine [...] Urea Nitrogen 36(H) 7 - 22 mg/dL 08/30/2018 8:25 PM EDT Creatinine Level 2.43(H) 0.55 - 1.02 mg/dL 08/30/2018 8:25 PM EDT Bun/Creatinine 14.8 8.0 - 20.0 08/30/2018 8:25 PM EDT Albumin Level 1.5(L) 3.4 - 5.0 Gram/dL 08/30/2018 8:25 PM EDT Protein, Total 4.4(L) 6.4 - 8.2 Gram/dL 08/30/2018 8:25 PM EDT A/G Ratio 0.5(L) 1.1 - 2.5 08/30/2018 8:25 PM EDT Alk Phos 69 27 - 136 Units/Lit er 08/30/2018 8:25 PM EDT ALT 16 12 - 78 Units/Lit er 08/30/2018 8:25 PM EDT Comment: [facility] has become aware of sulfasalazine and sulfapyridine [...] prior to administration of the drug. AST 39(H) 5 - 37 Units/Lit er 08/30/2018 8:25 PM EDT Comment: [facility] has become aware of sulfasalazine and sulfapyridine [...] to administration of the drug. Bilirubin, Total 0.2 0.2 - 1.3 mg/dL 08/30/2018 8:25 PM EDT Globulin 2.9 1.5 - 4.5 Gram/dL 08/30/2018 8:25 PM EDT eGFR 24(L) >=60 mL/min/1. 73m2 08/30/2018 8:25 PM EDT Comment: GFR <60 suggests chronic kidney disease, if found over 3 month period. GFR <15 indicates renal failure. eGFR NonAfrican 20(L) >=60 mL/min/1. 73m2 08/30/2018 8:25 PM EDT Comment: GFR <60 suggests chronic kidney disease, if found over 3 month period. GFR <15 indicates renal failure. Blood 08/30/2018 3:54 PM EDT 08/30/2018 8:03 PM EDT [facility] Historical Provider LAB BLOOD ORDERABLES Fi nal Result [facility] [address] [phone] * (ABNORMAL) Uric acid (08/30/2018 3:54 PM EDT) Uric Acid 7.1(H) 2.6 - 6.0 mg/dL 08/30/2018 8:25 PM EDT Comment: No Uric Acid reference ranges defined for patients with an ? Unknown? gender. Please apply existing Male/Female reference ranges as clinically indicated. Assay ? Sex ?Age from ?Units ?Age to ?Units ? Normal Low ?Normal High Uric Acid ? Male ? 0 ?Minutes ?18 ? Years ?2.0 ?5.5 Uric Acid ? Male ? 18 ?Years ?150 ? Years ?3.5 ?7.2 Uric Acid ? Female ?0 ? Minutes ? 18 ?Years ?2.0 ? 5.5 Uric Acid ? Feale ? 18 ?Years ? 150 ?Years ? 2.6 ?6.0 Blood 08/30/2018 3:54 PM EDT 08/30/2018 8:03 PM EDT [facility] Historical Provider LAB BLOOD ORDERABLES Fi nal Result Performing Organization Address City/[facility]/ZIP Co de Phone Number [facility] [address] [phone] * PT/INR PROTHROMBIN TIME ([facility] DATA CONV) (08/30/2018 3:54 PM EDT) PT 10.8 9.6 - 11.5 Second(s) 08/30/2018 8:22 PM EDT INR 1.0 0.9 - 1.1 08/30/2018 8:2 2 PM EDT Blood 08/30/2018 3:54 PM EDT 08/30/2018 8:03 PM EDT [facility] Provider LAB BLOOD ORDERABLES Fi nal Result Performing Organization Address [facility] Co de Phone Number [facility] [address] [phone] * PROCALCITONIN ([facility] DATA CONV (08/30/2018 3:54 PM EDT) Procalcitonin <0.05 0.00 - 0.05 ng/mL 08/30/2018 8:35 PM EDT Comment: Procalcitonin <0.5 ng/mL Systemic infection (sepsis) is not likely. Local bacterial infection is possible Procalcitonin > 0.5 to < 2 ng/mL Systemic infection (sepsis) is possible, but various ?? conditions are known to induce Procalcitonin as well. Procalcitonin > 2 to < 10 ng/mL Systemic infection (sepsis) is likely ?? unless other causes are known. Procalcitonin > 10 ng/mL Important systemic inflammatory response, almost exclusively due to severe bacterial ?? sepsis or septic shock. Blood 08/30/2018 3:54 PM EDT 08/30/2018 8:03 PM EDT [facility] Provider LAB BLOOD ORDERABLES Fi nal Result Performing Organization Address City/[facility]/ZIP Co de Phone Number [facility] [address] [phone] * CULTURE, BLOOD ([facility] DATA CONV) (08/30/2018 3:47 PM EDT) Final No growth at 5 days. Final Pre No growth at 4 days. Pre Pre No growth at 3 days. Pre Pre No growth at 2 days. Pre Pre No growth at 1 day. Pre Pre Culture less than 24 Hrs old Pre Blood 08/30/2018 3:47 PM EDT 08/30/2018 9:44 PM EDT [facility] Historical Provider LAB BLOOD ORDERABLES Fi nal Result [facility] [address] [phone] documented in this encounter Visit Diagnoses Not on filedocumented in this encounter
--- OUTSIDE RECORDS SUMMARY | 2024-03-11 09:24 | XMS_ITS | Encounter Summary ---
Author Organization [employer] Address [address] [place] [address] Care Team Providers Care Maintenance Manager Name Role Phone Juan José Kendall MD Primary Care Provider +- [phone] Juan José Kendall MD Unavailable [phone] Encounter Details Date Type Department Care Team (Late st Contact Info) Description 06/28/2018 Transcribed Document [facility] [place] [address] ProviderLaurie MD [address] [place] [address] Social History Tobacco Use Types Packs/Day Years Used Date Smoking Tobacco: Never Assessed Comments Unknown Sex and Gender Information Value Date Recorded Sex Assigned at Not on file Legal Sex Female 2:23 PM CDT Gender Identity Not on file Sexual Orientation Not on file documented as of this encounter Miscellaneous Notes * [employer]ner Conversion Note - Historical ProviderMD - 06/28/2018 10:32 AM CDT Treatment Intervention, PT Entered On: 06/28/2018 16:11 EDT Performed On: 06/28/2018 14:03 EDT by VINNIE LUI POSTAL CLERK General Information, PT Visit Type, PT : Treatment Note Patient Orders : Order Date Order Ordering 06/27/2018 20:33 PT Evaluation and Treatment Ordered By: JONG SANTACRUZ MD-ORT 06/27/2018 20:33 PT Treatment Instructions Ordered By: JONG SANTACRUZ MD-ORJasmine 06/28/2018 10:32 PT Additional Treatment Ordered By: KIARA FUNK, PT Active Diagnoses : 06/27/2018 00:00 Essential (primary) [...] : Aftercare following L patella tendon reconstruction Admission Date : 06/27/2018 03:45 Assisted by, PT : Other: Skyla Sheldon PTA Student Personal Devices : Personal Devices Glasses Assistive Devices : Assistive Devices Brace VINNIE LUI PTA - 06/28/2018 15:52 EDT General Status Patient Received Status : Up in chair, Other: DRAFTER CHIEF DESIGN, SCUDS, needs in reach Treatment Start Time : 06/28/2018 13:35 EDT Patient Left Status : Up in chair, Chair alarm activated, RN/PCT informed, All needs met and within reach, Other: SCUDS, son RN/PCT Informed Comment : RN wanda pt for therapy session Treatment End Time : 06/28/2018 14:03 EDT Treatment Time : 28 Minute(s) VINNIE LUI PTA - 06/28/2018 15:52 EDT Edu Topics Physical Therapy Education Grid Bed Mobility Training : Verbalizes understanding, Returns demonstration Caregiver Training : Verbalizes understanding, Returns demonstration Gait Training : Returns demonstration, Verbalizes understanding Home Safety : Verbalizes understanding Safety : Verbalizes understanding, Returns demonstration Transfer Training : Verbalizes understanding, Returns demonstration Use of Assistive Device : Returns demonstration, Verbalizes understanding VINNIE LUI PTA - 06/28/2018 15:52 EDT Plan of Care, PT PT Tx Plan/Goals Established w Patient : Yes VINNIE LUI PTA - 06/28/2018 15:52 EDT Cutting Machine Tender Decorative Goals Other PT LTG Grid Goal #1 [...] have help at home to perform transfer VINNIE LUI PTA - 06/28/2018 15:52 EDT VINNIE LUI PTA - 06/28/2018 15:52 EDT VINNIE LUI PTA - 06/28/2018 15:52 EDT Treatment Note Subjective Comment : Pt agreeable to physical therapy. Patient's Response to Treatment : Pt pleasant and worked well with therapy. Additional Objective Information : - sit to/from stand CGA with RWx - cues for proper hand palcement and set up - pt assisted to bahtroom with RWx CGA - cues for safe sit on commode - amb ~ 60' total CGA with RWx - demonstrated slow pace, step to gait pattern, forward flexed posture, no LOB - cues for reciprocal gait, upright posture, self pace - upon arrival back to room pt and son educated on sup to/from sit transfer and guarding for sit to/from stand transfer, verbalized understanding - son returned proper guarding techinque for EOB to/from stand with RWx CGA - pt educated on log roll technique for bed mobility - sit to sup Hilary with LLE - sup to sit CGA Gait Trainin minutes Ther Act: 14 mintues Assessment : Pt demonstrated good safety awareness and balance throughout session. She felt more confindent with peforming sit to/from stand on lower surface after session. She also felt better performing sup to/from sit using log roll technique. Plan for Treatment : Cont POC. VINNIE LUI PTA - 06/28/2018 15:52 EDT Pain Assessment Pain Scaled Used : FACES Pain Score Pre-Intervention : 4 VINNIE LUI PTA - 06/28/2018 15:52 EDT Image 1 - Images currently included in the form version of this document have not been included in the text rendition version of the form. [facility] PT Charges PT Ther Activities Ea 15 Min : 1 Gait Training Each 15 Min : 1 VINNIE LUI PTA - 06/28/2018 15:52 EDT Electronically signed by Aleks, [facility] Conversion Search Coordinator [employer] at 07/24/2022 3:54 PM CDT documented in this encounter Plan of Treatment Not on file documented as of this encounter Visit Diagnoses Not on filedocumented in this encounter Care Teams Maintenance Manager Relationship Specialty Start Date End Date Juan José Kendall MD [address] [facility] [address] [place] [address] PCP - General Family Medicine 12/25/22 Juan José Kendall MD [address] [facility] [address] [place] [phone] Referring Physician Family Medicine 12/25/22 documented as of this encounter
--- OUTSIDE RECORDS SUMMARY | 2024-03-11 09:24 | XMS_ITS | Encounter Summary ---
Author Organization [facility] Address [address] [place] [place] [address] Care Team Providers Care Referral Nurse Name Role Phone Juan José Kendall MD Primary Care Provider +- [phone] Juan José Kendall MD Unavailable [phone] Encounter Details Date Type Department Care Team (Late st Contact Info) Description 06/27/2018 Transcribed Document [facility] Family Medicine [facility] [place] [address] ProviderLaurie MD [address] [place] [id number] Social History Tobacco Use Types Packs/Day Years Used Date Smoking Tobacco: Never Assessed Comments Unknown Sex and Gender Information Value Date Recorded Sex Assigned at Not on file Legal Sex Female 2:23 PM CDT Gender Identity Not on file Sexual Orientation Not on file documented as of this encounter Miscellaneous Notes * Cerner Conversion Note - Historical ProviderMD - 06/27/2018 12:15 PM CDT Pre Procedure Adult Entered On: 06/27/2018 12:21 EDT Performed On: 06/27/2018 12:15 EDT by TANMAY BEY RN Height and Weight, Clinical Dosing Height Source : Stated Height Entry Format : [place] Height, Feet : 5 ft(Converted to: 152 cm, 60 Inch) Height, Inches : 6 Inch(Converted to: 0 ft 6 Inch, 15.24 cm) Clinical Height : 167.64 cm Weight Source : Standing scale Weight Entry Format : [place] Clinical Dosing Weight : 120.45 kg Weight, Pounds : 265 lb Body Surface Area (BSA) : 2.26 m2 Body Mass Index : 42.9 kg/m2 (>HHI) [place] Body Weight : 59 kg TANMAY BEY RN - 06/27/2018 12:15 EDT Health Histories Smoking Status : Never (less than 100 in lifetime; none in last 30 days) Smokeless Tobacco Status : Never TANMAY BEY RN - 06/27/2018 12:15 EDT Social History (As Of: 06/27/2018 12:21:40 EDT) Tobacco: Never (less than 100 in lifetime) Smoking Status. Never Smokeless Tobacco Status. (Last Updated: 06/23/2018 15:46:55 EDT by RASHEL BARRAZA, LISBETH) Alcohol: Alcohol Use History No. (Last Updated: 06/23/2018 15:46:55 EDT by RASHEL BARRAZA, RN) Substance Abuse: Drug Use Hx: No. (Last Updated: 06/23/2018 15:46:55 EDT by RASHEL BARRAZA, RN) Infectious Disease History Infectious Disease History : Chicken pox/Shingles, Influenza, Measles, Mononucleosis, Mumps Fever/Chills Last 48 Hours : No Travel To Regions with Travel Advisories : No Travel Outside [place] Within Last 30 Days : No Contact With Traveler to Advisory Region : No Tuberculosis Symptoms : None TANMAY BEY RN - 06/27/2018 12:15 EDT Anesthesia/Transfusion History Family History of Anesthesia Reaction : No prior transfusion(s) Transfusion History : Prior anesthesia reaction Type of Anesthesia Reaction : Excessive somnolence Family History of Anesthesia Reaction : None TANMAY BEY RN - 06/27/2018 12:15 EDT Functional Assessment Living Situation : Home Patient Lives With : Spouse Persons Assisting Patient at Home : Spouse Current Daily Living Assistance : None Sensory Deficits : None Mobility Assistance Prior to Admission : Independent [place] Hx Falls Immediate/Within 3 Months : No Current Home Treatments : None Home Equipment : None TANMAY BEY RN - 06/27/2018 12:15 EDT Psychosocial History Do You Have a History of the Following? : Patient denies history Currently in Unsafe Situation : No Tried to Harm Yourself in the Past? : No Thoughts of Harming/Killing Yourself : No TANMAY BEY RN - 06/27/2018 12:15 EDT Advance Directive Patient has Advance Directive *Q : Yes, Advance Directive not with the patient Advance Directive Type : Living will Copy Advance Directive Verified/on Chart : No TANMAY BEY RN - 06/27/2018 12:15 EDT Spiritual/Cultural Needs Any Spiritual/Cultural Needs or Requests : Yes TANMAY BEY RN - 06/27/2018 12:15 EDT Teaching/Learning Assessment Barriers To Learning : None evident Individuals Taught : Patient, Spouse Readiness to Learn : Cooperative Baseline Knowledge of Topic : Comprehensive Readiness to Learn : Explanation Learning Style Preferences Patient : Verbal explanation Learning Style Preferences Family : Verbal explanation TANMAY BEY RN - 06/27/2018 12:15 EDT General Info Arrived From : Home Mode of Arrival on Unit : Ambulatory Patient Arrival Date/Time : 06/27/2018 11:35 EDT Legal Guardian : Spouse Want Family/Rep/Phys Notified of Admit : No Emergency Contact #1 : Mauricio Emergency Contact #1 Emergency Contact #1 Relationship : spouse Emergency Contact #2 : - Emergency Contact #2 Phone Number : - Emergency Contact #2 Relationship : - Information Obtained From : Patient Primary Language : [place] Islander Preferred Communication Mode : Verbal Communication Barrier : None Objects to Sharing Info w Family : No TANMAY BEY RN - 06/27/2018 12:15 EDT Vital Measurements Temperature Source : Temporal artery scanning Temperature Mode : Celsius Temperature, Celsius : 36.6 Deg C Clinical Temperature, F : 97.9 Deg F Pulse Method : Pulse Oximetry Peripheral Pulse Rate : 64 bpm Pulse Rhythm : Regular Respiratory Rate : 18 Breaths/Min Blood Pressure Location : Arm, right upper Blood Pressure Source : Non-Invasive BP Device Systolic Blood Pressure : 131 mmHg Diastolic Blood Pressure : 65 mmHg Oxygen Saturation : 97 % Oxygen Therapy Mode : Room air TANMAY BEY RN - 06/27/2018 12:15 EDT Sleep Apnea Risk Assmt BiPAP/CPAP Ordered for Home Use : Yes Hx of Obstructive Sleep Apnea Diagnosis : Yes BiPAP/CPAP Used at Home : No Reason BiPAP/CPAP Not Used at Home : patient took it back Age over 50 Years Old : Yes Gender Male : No TANMAY BEY RN - 06/27/2018 12:15 EDT Cain Scale Cain Sensory Perception : Slightly limited Cain Moisture : Rarely moist Cain Activity : Walks occasionally Cain Mobility : Very limited Cain Nutrition : Excellent Cain Friction and Shear : Potential problem Cain Score : 18 TANMAY BEY RN - 06/27/2018 12:15 EDT Oxygen Therapy Oxygen Therapy Mode : Room air TANMAY BEY RN - 06/27/2018 12:15 EDT Pain Assessment Pain Assessment : Initial assessment Pain Scale Used : 0-10 Scale TANMAY BEY RN - 06/27/2018 12:15 EDT Fall Risk Scales ABCs Fall Injury Risk Identification : None [place] Hx Falls Immediate/Within 3 Months : No [place] Secondary Diagnosis : No [place] Use of Ambulatory Aid : None [place] IV Therapy or IV Access : Yes [place] Gait/Transferring : Normal, bedrest, immobile [place] Mental Status : Oriented to own ability [place] Fall Risk Score : 20 [place] Fall Scale Risk Level : 0-24 Low Risk [place] Fall Interventions : Assistive devices within reach, Bed in low position, Call device within reach, Hourly comfort/safety rounds, Non-slip footwear, Personal items within reach, Wheels locked TANMAY BEY RN - 06/27/2018 12:15 EDT Fall Risk Education Grid Nonskid Footwear Use : Verbalizes understanding TANMAY BEY RN - 06/27/2018 12:15 EDT Barriers to Learning : None evident Individuals Taught : Patient Readiness to Learn : Cooperative Baseline Knowledge of Topic : Comprehensive Teaching Method : Explanation Learning Style Preferences Patient : Verbal explanation Teaching Evaluation : Verbalizes understanding TANMAY BEY RN - 06/27/2018 12:15 EDT Education Topics, Day of Surgery DayofSurgery Education Grid Anesthesia/Sedation : Verbalizes understanding IV's : Verbalizes understanding Medication Instructions : Verbalizes understanding Pain Management : Verbalizes understanding Plan of Care : Verbalizes understanding TANMAY BEY RN - 06/27/2018 12:15 EDT Valuables and Belongings Valuables and Belongings : Clothing, Personal devices, Assistive devices Clothing : Common streetwear Clothing Disposition : Bedside Personal Device Disposition : With family Personal Devices : Glasses Assistive Devices From Home : Brace Assistive Device Disposition : With family TANMAY BEY RN - 06/27/2018 12:15 EDT Pain Scale Intensity : 0 TANMAY BEY RN - 06/27/2018 12:15 EDT Image 4 - Images currently included in the form version of this document have not been included in the text rendition version of the form. Electronically signed by Adia Fink Conversion Internal Combustion Engine Assembler Cerner at 07/24/2022 3:56 PM CDT documented in this encounter Plan of Treatment Not on file documented as of this encounter Visit Diagnoses Not on filedocumented in this encounter Care Teams Referral Nurse Relationship Specialty Start Date End Date Juan José Kendall MD [address] [facility] [address] [place] [id number] PCP - General Family Medicine 12/25/22 Juan José Kendall MD [address] [facility] [address] [place] [phone] Referring Physician Family Medicine 12/25/22 documented as of this encounter
--- OUTSIDE RECORDS SUMMARY | 2024-03-11 09:25 | XMS_ITS | Encounter Summary ---
Author Organization [employer] Address [address] [place] [address] Care Team Providers Care Lapidarist Name Role Phone Unavailable Primary Care Provider Unavailabl e Encounter Details Date Type Department Care Team (Late st Contact Info) Description 06/23/2018 Historic Encounter [address] [address] ProviderMatthew Historical Social History Tobacco [...] Procedure Name Priority Date/Time Associated Diagnosis Comments URINALYSIS UA RFLX MICROSCOPIC CULT IF IND ([facility] BKR DATA CONV) Routine 06/23/2018 4:06 PM EDT documented in this encounter Results * (ABNORMAL) URINALYSIS UA RFLX MICROSCOPIC CULT IF IND ([facility] BKR DATA CONV) (06/23/2018 4:06 PM EDT) Urine Type. U CleanCatch 06/23/2018 8:24 PM EDT Urine Color Yellow 06/23/2018 8:29 PM EDT Comment: Substances that cause HIGHLY abnormal urine color may affect the accuracy of URINE CHEMISTRY reagent strip results due to colorimetric interference. ??These include visible levels of blood or bilirubin, drugs containing dyes, and some antibiotics such as nitrofurantoin and riboflavin which can cause markedly abnormal urine coloration. Urine Appearance Cloudy(A) 06/23/2018 8:29 PM EDT Urine Specific [place] 1.015 1.005 - 1.030 06/23/2018 8:29 PM EDT Urine pH Dipstick 7.5 6.0 - 8.0 06/23/2018 8:29 PM EDT Urine Leukocyte Esterase Small(A) Negative 06/23/2018 8:29 PM EDT Urine Nitrite Negative Negative 06/23/2018 8:29 PM EDT Urine Protein Dipstick Negative Negative 06/23/2018 8:29 PM EDT Urine Glucose Dipstick Negative Negative 06/23/2018 8:29 PM EDT Urine Ketones Dipstick Negative Negative 06/23/2018 8:29 PM EDT Urine Urobilinogen Dipstick 1.0 0.2 - 1.0 EU/dL 06/23/2018 8:29 PM EDT Urine Bilirubin Dipstick Negative Negative 06/23/2018 8:29 PM EDT Urine Blood Dipstick Negative Negative 06/23/2018 8:29 PM EDT 06/23/2018 4:06 PM EDT 06/23/2018 8:24 PM EDT us Sle Historical Provider URINE ORDERABLES Final Result [facility] [address] [phone] documented in this encounter Visit Diagnoses Not on filedocumented in this encounter
--- OUTSIDE RECORDS SUMMARY | 2024-03-11 09:25 | XMS_ITS | Encounter Summary ---
Author Organization [facility] Address [address] [place] [address] Care Team Providers Care Classification Inspector Name Role Phone Juan José Kendall MD Primary Care Provider [phone] Encounter Details Date Type Department Care Team ([facility] st Contact Info) Description 07/10/2022 Telephone TRAUMA SURGERY [address] [place] [address] Silvia Simmons, RN Social History Tobacco Use Types Packs/Day Years Used Date Smoking Tobacco: Never Smokeless Tobacco: Never Alcohol Use Standard Drinks/Week Comments Never 0 (1 standard drink = 0.6 oz pur e alcohol) Comments No Sex and Gender Information Value Date Recorded Sex Assigned at Female 05/22/2022 10:56 AM EST Legal Sex Female 5:59 PM EDT Gender Identity Female 05/22/2022 10:56 AM EST Sexual Orientation Not on file documented as of this encounter Miscellaneous Notes * Telephone Encounter - Silvia Simmons - 07/10/2022 12:17 PM EDT Contacted patient about prior incoming call regarding her missed appointment on 07/02/[address] Reynoso via telehealth. I informed Ms. Blair that there were two different occasions where we tried to contact her about her appointment on 06/02/22 and 07/01/22 but no answer or VM set up to leave a message. After speaking with my colleague Merlyn and reviewing the pathology report, we determined there was no need for patient to follow up unless she was having current complications or still wanted to come in and see Dr. Reynoso at her next available clinic. Patient denied any new onset of pain sx, N/V, fever, chills. Patient was still offered an appointment to come in and see Dr. Reynoso in August for her August clinic, but patient declined appointment offer. I instructed patient to call us if she had any other questions and gave her my direct phone number [phone]. Patient verbalized understanding. Nothing further at this time. documented in this encounter Plan of Treatment Not on file documented as of this encounter Visit Diagnoses Not on filedocumented in this encounter Additional Health Concerns Infection Onset Date Last Indicated Resolved Time MRSA Comment:MRSA (methicillin resistant Staphylococcus aureus) 04/17/2020 05/21/2022 Assessment Noted Time A fall risk assessment has been complete d for the patient 04/23/2021 1:07 PM EST documented as of this encounter Care Teams Classification Inspector Relationship Specialty Start Date End Date Juan José Kendall MD [address] [place] [id number] PCP - General 03/12/21 documented as of this encounter
--- OUTSIDE RECORDS SUMMARY | 2024-03-11 09:25 | XMS_ITS | Encounter Summary ---
Author Organization [facility] Address [address] [place] [address] Care Team Providers Care Automatic Print Developer Name Role Phone Juan José Kendall MD Primary Care Provider [phone]- [phone] Reason for Referral * Imaging (Routine) - Closed Specialty Diagnoses / Procedures Referred By Beth ricci Referred To Contact Gastroenterology Diagnoses Choledocholithiasis with acute cholecystitis Procedures ERCP 1 - Grade 1 Irma Reynoso MD [address] [address] Phone: tel: fax: Referral ID Status Reason Start Date Expiration Date V isits Requested Visits Authorized [id number] Closed Specialty Services Required 05/22/2022 11/21/2023 1 1 Reason for Visit * Imaging (Routine) - Closed Specialty Diagnoses / Procedures Referred By Beth ricci Referred To Contact Gastroenterology Diagnoses Choledocholithiasis with acute cholecystitis Procedures ERCP 1 - Grade 1 Irma Reynoso MD [address] [address] Phone: tel: fax: Referral ID Status Reason Start Date Expiration Date V isits Requested Visits Authorized [id number] Closed Specialty Services Required 05/22/2022 11/21/2023 1 1 Encounter Details Date Type Department Care Team (Latest Contact Info) Description 07/16/2022 8:17 AM EDT - 07/16/2022 8:49 AM EDT Hospital Encounter [facility] [address] [place] [address] Arnol Cordova MD [address] [place] [address] Choledocholithiasis with acute cholecystitis Discharge Disposition: Home or Self Care Social History Tobacco Use Types Packs/Day Years Used Date Smoking Tobacco: Never Smokeless Tobacco: Never Tobacco Cessation:Counseling Given: Not Answered Alcohol Use Standard Drinks/Week Comments Never 0 (1 standard drink = 0.6 oz pur e alcohol) Comments No Sex and Gender Information Value Date Recorded Sex Assigned at Female 05/22/2022 10:56 AM EST Legal Sex Female 5:59 PM EDT Gender Identity Female 05/22/2022 10:56 AM EST Sexual Orientation Not on file COVID-19 Exposure Response Date Recorded In the last 10 days, have yo u been in contact with someone who was confirmed or suspected to have Coronavirus/COVID-19? No / Unsure 07/16/2022 8:06 AM EDT documented as of this encounter Last Filed Vital Signs Vital Sign Reading Time Taken Comments Blood Pressure 109/81 07/16/2022 12:15 PM EDT Pulse 59 07/16/2022 12:20 PM EDT Temperature 36.2 ??C (97.1 ??F) 07/16/2022 11:40 AM E DT Respiratory Rate 13 07/16/2022 12:20 PM EDT Oxygen Saturation 99% 07/16/2022 12:20 PM EDT Inhaled Oxygen Concentration - - Weight 74.8 kg (165 lb) 07/16/2022 8:43 AM EDT Height 167.6 cm (5' 6 ) 07/16/2022 8:43 AM EDT Body Mass Index 26.63 07/16/2022 8:43 AM EDT documented in this encounter Discharge Instructions * Attachments The following attachments cannot be sent through Care Everywhere. * Anesthesia: General Anesthesia (Maori) * Colonoscopy, Gastroscopy, or ERCP Discharge Instructions - Endoscopy Unit () (Maori) documented in this encounter Medications at Time of Discharge atorvastatin (Lipitor) 20 MG tablet Take 20 mg by mouth every night. 11/18/2019 brompheniramine-p seudoephedrine-DM 30-2-10 MG/5ML syrup Take 5 mL by mouth 4 (four) times a day if needed. diphenhydrAMINE (BENADryl) 50 MG tablet Take 50 mg by mouth at night if needed for sleep. gabapentin (Neurontin) 300 MG capsule Take 1 capsule by mouth every morning and 2 capsules at bedtime hyoscyamine (Anaspaz,Levsin) 0.125 MG tablet Take 0.125 mg by mouth 2 (two) times a day. levothyroxine (Synthroid, Levoxyl) 25 MCG tablet Take 25 mcg by mouth 1 (one) time each day. magnesium oxide (Mag-Ox) 400 mg tablet Take 400 mg by mouth 1 (one) time each day. midodrine (Proamatine) 10 MG tablet Take 10 mg by mouth 2 (two) times a day. 11/13/2019 morphine CR (MS Contin) 15 MG 12 hr tablet Take 30 mg by mouth 2 (two) times a day. 2 tablets twice daily 01/09/2020 ondansetron (Zofran) 4 MG tablet Take 4 mg by mouth 3 (three) times a day if needed. 02/04/2021 pantoprazole (ProtoNix) 40 MG EC tablet Take 40 mg by mouth 1 (one) time each day before breakfast. 11/18/2019 potassium chloride ER (Micro-K) 10 MEQ ER capsule Take 10 mEq by mouth 2 (two) times a day. Do not crush or chew. topiramate 50 MG tablet Take 50 mg by mouth 2 (two) times a day. 07/19/2018 traZODone (Desyrel) 50 MG tablet Take 50 mg by mouth every night. 11/18/2019 documented as of this encounter Miscellaneous Notes * H&P - Arnol Cordova MD - 07/16/2022 9:45 AM EDT Images from the original note were not included. Chief Concern & History Of Present Illness Trudi Blair is a 66 y.o. 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 Surgical History She has a past surgical history that includes Back surgery (N/A); Hysterectomy (N/A); Foot surgery (Bilateral); Knee surgery (Bilateral); Knee Arthroplasty (Bilateral); Dilation and curettage of uterus; Spinal fusion; Appendectomy; Leg Amputation; Cholecystectomy; and ERCP. Family History Family History Problem Relation Name Age of Onset Hypertension Other Other cancer Other Social History She reports that she has never smoked. She has never used smokeless tobacco. She reports that she does not drink alcohol and does not use drugs. Occupational History Employer: No address on file. Travel History Relevant International Travel History: Travel Screening Question Response In the last 10 days, have you been in contact with someone who was confirmed or suspected to have Coronavirus/COVID-19? No / Unsure Have you had a COVID-19 viral test in the last 10 days? No Do you have any of the following new or worsening symptoms? None of these Have you traveled internationally or domestically in the last month? No Travel History Travel since 06/15/22 No documented travel since 06/15/22 Relevant Domestic Travel History: Immunizations reviewed VACCINE/DOSE Flu Tetanus Pneumovax Shingles Allergies Clarithromycin Medications Current Outpatient Medications Medication Sig Dispense Refill gabapentin (Neurontin) 300 MG capsule Take 1 capsule by mouth every morning and 2 capsules at bedtime morphine CR (MS Contin) 15 MG 12 hr tablet Take 30 mg by mouth 2 (two) times a day. 2 tablets twicedaily atorvastatin (Lipitor) 20 MG tablet Take 20 mg by mouth every night. owbrvgsxlprluva-ywibkcrtbmsiitx-DA 30-2-10 MG/5ML syrup Take 5 mL by mouth 4 (four) times a day if needed. diphenhydrAMINE (BENADryl) 50 MG tablet Take 50 mg by mouth at night if needed for sleep. hyoscyamine (Anaspaz,Levsin) 0.125 MG tablet Take 0.125 mg by mouth 2 (two) times a day. levothyroxine (Synthroid, Levoxyl) 25 MCG tablet Take 25 mcg by mouth 1 (one) time each day. magnesium oxide (Mag-Ox) 400 mg tablet Take 400 mg by mouth 1 (one) time each day. midodrine (Proamatine) 10 MG tablet Take 10 mg by mouth 2 (two) times a day. ondansetron (Zofran) 4 MG tablet Take 4 mg by mouth 3 (three) times a day if needed. pantoprazole (ProtoNix) 40 MG EC tablet Take 40 mg by mouth 1 (one) time each day before breakfast. potassium chloride ER (Micro-K) 10 MEQ ER capsule Take 10 mEq by mouth 2 (two) times a day. Do not crush or chew. topiramate 50 MG tablet Take 50 mg by mouth 2 (two) times a day. traZODone (Desyrel) 50 MG tablet Take 50 mg by mouth every night. Current Facility-Administered Medications Medication Dose Route Frequency Provider Last Rate Last Admin lactated Ringer's infusion 100 mL/hr Intravenous Once Zechariah Burnett MD lidocaine (Xylocaine) 1 % injection 0.5 mL 0.5 mL Injection Once PRN Zechariah Burnett MD sodium chloride 0.9 % flush 10 mL 10 mL Intravenous q12h Zechariah Burnett MD And sodium chloride 0.9 % flush 10 mL 10 mL Intravenous PRN Zechariah Burnett MD Physical Exam Constitutional: Appearance: Normal appearance. She is well-developed. HENT: Head: Normocephalic and atraumatic. Right Ear: External ear normal. Left Ear: External ear normal. Cardiovascular: Rate and Rhythm: Normal rate. Pulses: Normal pulses. Heart sounds: No murmur heard. Pulmonary: Effort: Pulmonary effort is normal. No respiratory distress. Abdominal: General: There is no distension. Tenderness: There is no abdominal tenderness. Musculoskeletal: General: Normal range of motion. Cervical back: Normal range of motion. Skin: General: Skin is dry. Coloration: Skin is not jaundiced. Findings: No bruising. Neurological: Mental Status: She is alert and oriented to person, place, and time. Psychiatric: Mood and Affect: Mood normal. Behavior: Behavior normal. Thought Content: Thought content normal. Judgment: Judgment normal. Last Recorded Vitals Blood pressure 115/76, pulse 67, temperature 36.6 ??C (97.8 ??F), temperature source Temporal, resp. rate 16, height 1.676 m (5' 6 ), weight 74.8 kg (165 lb), SpO2 97 %. Relevant Results Reviewed Assessment/Plan Active Problems: There are no active Hospital Problems. 66 y.o. female presenting with stone for biliary stent removal documented in this encounter Plan of Treatment Not on file documented as of this encounter Procedures Procedure Name Priority Date/Time Associated Diagnosis Comments ERCP Routine 07/16/2022 11:36 AM EDT Choledocholithiasis with acute cholecystitis SURGICAL PATHOLOGY EXAM Routine 07/16/2022 11:23 AM EDT Choledocholithiasis with acute cholecystitis documented in this encounter Results * ERCP 1 - Grade 1 (07/16/2022 11:36 AM EDT) Anatomical Region Laterality Modality Endoscopy Narrative 07/16/2022 12:19 PM EDT Table formatting from the original result was not included. Impression Overall Impression: One occluded 7 Fr double pigtail plastic stent was visualized in the common bile duct. The stent had migrated inward. The stent was removed using forceps One occluded 10 mm fully covered metal stent was visualized in the common bile duct. The stent was removed using forceps The common bile duct was deeply cannulated using an extraction balloon with 270 cm x 0.035 straight guidewire. Cannulation was not difficult and no bleeding was observed. Contrast was injected Multiple sweeps were performed in the common bile duct, common hepatic duct and bifurcation of the hepatic duct using a 8 mm and 11 mm 15 mm balloon. Sludge, stones and debris were removed, achieving complete clearance. One 3 mm stone was removed A cholangiogram was performed using a balloon occlusion technique. ??I personally interpreted the bile duct images. ??Ductal flow of contrast was adequate. There was excellent drainage of bile and contrast at the end of the procedure. Mild, patchy edematous and erythematous mucosa in the antrum and prepyloric region Performed 4 forceps biopsies in the antrum and prepyloric region, sent sample for histology analysis. Recommendation Await pathology results Indication Choledocholithiasis with acute cholecystitis Medications See anesthesia record for anesthesia administered medications. Staff Staff Role Val Rodriguez, LISBETH Endo Nurse KALPESH Valera CRNA, MD Anesthesiologist Jennifer James RN Endo Nurse Arnol Cordova MD Proceduralist Unknown Endo Nurse 1 Endo Nurse Preprocedure A history and physical has been performed, and patient medication allergies have been reviewed. The patient's tolerance of previous anesthesia has been reviewed. The risks and benefits of the procedure and the sedation options and risks were discussed with the patient. All questions were answered and informed consent obtained. Details of the Procedure The patient underwent general anesthesia, which was administered by an anesthesia professional. The patient's blood pressure, heart rate, level of consciousness, oxygen and respirations were monitored throughout the procedure. Clinical intention was achieved. The patient experienced no blood loss. The procedure was not difficult. The patient tolerated the procedure well. There were no apparent complications. The scope was inserted through the mouth and advanced to the area of the major papilla in the second portion of the duodenum to cannulate the bile duct. Attestation I personally performed the entire procedure Specimens ID Type Source Tests Collected by Time A : Gastric biopsies Tissue Stomach SURGICAL PATHOLOGY EXAM Arnol Cordova MD 07/16/2022 1123 Findings One occluded 7 Fr double pigtail plastic stent was visualized in the common bile duct. The stent had migrated inward. The stent was removed using forceps. One occluded 10 mm fully covered metal stent was visualized in the common bile duct. The stent was removed using forceps. The common bile duct was deeply cannulated using an extraction balloon with 270 cm x 0.035 straight guidewire. Cannulation was not difficult and no bleeding was observed. Contrast was injected. Multiple sweeps were performed in the common bile duct, common hepatic duct and bifurcation of the hepatic duct using a 8 mm and 11 mm 15 mm balloon. Sludge, stones and debris were removed, achieving complete clearance. One 3 mm stone was removed. A cholangiogram was performed using a balloon occlusion technique. ??I personally interpreted the bile duct images. ??Ductal flow of contrast was adequate. There was excellent drainage of bile and contrast at the end of the procedure. Mild, patchy edematous and erythematous mucosa in the antrum and prepyloric region. Performed 4 forceps biopsies in the antrum and prepyloric region, sent sample for histology analysis. us Irma Reynoso MD GI PROCEDURE ORDERABLES Fi nal Result * Surgical Pathology Exam (07/16/2022 11:23 AM EDT) Case Report Surgical Pathology ?Case: [id number] ? Authorizing Provider: ??Arnol Cordova MD ? Collected: ? 07/16/2022 1123 ? Ordering Location: ? [facility] ?Received: ?07/16/2022 1258 ? Pathologist: ? Moy Allison MD ? Specimen: ?Stomach, Gastric biopsies ? 3 11:18 AM EDT [facility] Final Diagnosis STOMACH, BIOPSY: - CHRONIC GASTRITIS - NEGATIVE FOR INTESTINAL METAPLASIA OR DYSPLASIA - NO EVIDENCE OF HELICOBACTER ORGANISMS (IHC NEGATIVE) 3 11:18 AM EDT [facility] Clinical Information K80.42 - Choledocholithias is with acute cholecystitis [ICD-10-CM] 3 11:18 AM EDT [facility] Special and Immunohistochemical Stains IHC: A1-2 H-Pylori NEGATIVE All controls show appropriate reactivity. All immunohistochemis try, in situ hybridization, and histochemical tests were developed by and are performed at the [facility], [address] [facility], [place] [address]. All tests reported here, except those addressing HER2 (breast) and PD-L1 expression as predictive markers, have not been cleared by or approved by the US Food and Drug Administration (FDA). The FDA has determined that such clearance or approval is not necessary. The laboratory is regulated under CLIA as qualified to perform high-complexity testing. The tests are used for clinical purposes. They should not be regarded as investigational or for research. 3 11:18 AM EDT [facility] Gross Description A. GASTRIC BIOPSIES Received in formalin labeled gastric biopsies , and consists of two esparza/brown soft tissue fragments (0.2 and 0.4 cm) entirely submitted in cassette A1. Jalyn Tony 3 11:18 AM EDT [facility] Note: A resident was involved in the service. I attest I examined the relevant preparations for the specimens and confirmed the diagnosis or interpretation. 3 11:18 AM EDT [facility] Tissue Stomach structure / Unknown 07/16/2022 11:23 AM EDT 07/16/2022 12:58 PM EDT Arnol Cordova MD LAB PATHOLOGY ORDERABLES Fin al Result [facility] [address] [place] [address] documented in this encounter Visit Diagnoses Diagnosis Choledocholithiasis with acute cholecystitis Calculus of bile duct with acute cholecystitis without mention of obstruction documented in this encounter Additional Health Concerns Infection Onset Date Last Indicated Resolved Time MRSA Comment:MRSA (methicillin resistant Staphylococcus aureus) 04/17/2020 05/21/2022 Assessment Noted Time A fall risk assessment has been complete d for the patient 04/23/2021 1:07 PM EST documented as of this encounter Care Teams Automatic Print Developer Relationship Specialty Start Date End Date Juan José Kendall MD [address] [place] [address] PCP - General 03/12/21 documented as of this encounter
--- OUTSIDE RECORDS SUMMARY | 2024-03-11 09:25 | XMS_ITS | Encounter Summary ---
Author Organization [facility] Address [address] [place] [address] Care Team Providers Care Dairy Cattle Farmer Name Role Phone Juan José Kendall MD Primary Care Provider +- [phone] Juan José Kendall MD Unavailable [phone] Encounter Details Date Type Department Care Team (Late st Contact Info) Description 06/27/2018 Transcribed Document [facility] Family Medicine [facility] [place] [address] ProviderLaurie MD [address] [place], [place] [address] Social History Tobacco Use Types Packs/Day Years Used Date Smoking Tobacco: Never Assessed Comments Unknown Sex and Gender Information Value Date Recorded Sex Assigned at Not on file Legal Sex Female 2:23 PM CDT Gender Identity Not on file Sexual Orientation Not on file documented as of this encounter Miscellaneous Notes * Cerner Conversion Note - Laurie ProviderMD - 06/27/2018 3:45 PM CDT [facility] Main OR PACU Summary Primary Physician: JONG SANTACRUZ MD-ORT Finalized Date/Time: 06/27/18 19:56:33 Pt. Name: BAIRON TRUDIRA Morgan MéndezB./Sex: 1955 Female Med Rec #: [id number] Physician: JONG SANTACRUZ MD-ORT Financial #: [id number] Pt. Type: O Room/Bed: Admit/Disch: 06/27/18 03:45:00 - Institution: [facility] Main OR PACU Case Times Entry 1 In PACU I 06/27/18 18:37:00 Ready for PACU 06/27/18 19:56:00 Discharge Discharge from PACU 06/27/18 19:56:00 I Last Modified By: Mayito Crowell, Emeli-Traveler 06/27/18 19:56:19 [facility] Main OR PACU Case Times Audit 06/27/18 19:56:19 Collection Coordinator: [id number] Modifier: [id number] <+> 1 Ready for PACU Discharge <+> 1 Discharge from PACU I Finalized By: Mayito Crowell, Emeli-Traveler Document Signatures Signed By: Mayito Crowell Rn-Traveler 06/27/18 19:56 Electronically signed by Aleks [facility] [employer] Home Paraprofessional Cerner at 07/24/2022 3:44 PM CDT documented in this encounter Plan of Treatment Not on file documented as of this encounter Visit Diagnoses Not on filedocumented in this encounter Care Teams Dairy Cattle Farmer Relationship Specialty Start Date End Date Juan José Kendall MD [address] [facility] [address] [place] [address] PCP - General Family Medicine 12/25/22 Juan José Kendall MD [address] [facility] [address] [place] [address] Referring Physician Family Medicine 12/25/22 documented as of this encounter
--- OUTSIDE RECORDS SUMMARY | 2024-03-11 09:25 | XMS_ITS | Encounter Summary ---
Author Organization [facility] Address [address] [place] [address] Care Team Providers Care Retort Or Condenser Press Operator Name Role Phone Juan José Kendall MD Primary Care Provider [phone] Reason for Visit * Reason Comments Pain phantom pain Encounter Details Date Type Department Care Team (Late st Contact Info) Description 08/25/2022 9:00 AM EDT Office Visit Medical Office Building [facility] [address], [address] [place] [address] Edi Robles MD [address] [place] [address] History of right knee joint replacement (Primary Dx) Social History Tobacco Use Types [...] on file documented as of this encounter Last Filed Vital Signs Vital Sign Reading Time Taken Comments Blood Pressure 108/74 08/25/2022 9:03 AM EDT Pulse 84 08/25/2022 9:03 AM EDT Temperature - - Respiratory Rate - - Oxygen Saturation 98% 08/25/2022 9:03 AM EDT Inhaled Oxygen Concentration - - Weight 74.8 kg (164 lb 14.5 oz) 08/25/2022 9:03 AM EDT Height - - Body Mass Index 26.62 07/16/2022 8:43 AM EDT documented in this encounter Miscellaneous Notes * Progress Notes - Edi Robles MD - 08/25/2022 9:00 AM EDT Patient returns to clinic today with multiple issues her biggest being that she is had more development of 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 She has been trying to wean off of her gabapentin and made a jump from 300 mg a day down to 200 as best I can ascertain as she is getting her narcotic her Neurontin filled by her primary care provider but has gone from 3 pills to 2 pills a day she states that this has increased her symptoms. She is also complaining of excess skin over her above knee amputation which she is been told his fluid as well as pain over the spacer that is in her left knee. On examination today I discussed I found no fluid in the left above knee amputation but there is a significant amount of redundant skin from her significant weight loss I can palpate her patella in the distal aspect of her thigh but she has pain over the spacer and what appears to be scar tissue over the extensor mechanism. I would a long discussion with patient and her with regard to the phantom symptoms I recommended she go back to her 3 pills a day which I assume is 300 mg and discuss with her primary care provider slowly wean going to 275 at 2:50 a.m. etcetera rather than decreasing her dosage by 2/3. Thisshould help her phantom limb symptoms as she is been on gabapentin for years. With regard to the excess skin this has not fluid it is just excess skin as she does not wear a prosthesis that is not myrecommendation to remove this excess skin as it would be done for cosmetic reasons finally with regard to her left knee and the scar tissue over her spacer I do not have any solutions for this short of surgical intervention and as she has been very difficult to heal postoperatively it is not my recommendation to proceed with any surgical intervention at this time she will follow-up on a p.r.n. basis documented in this encounter Plan of Treatment Not on file documented as of this encounter Visit Diagnoses Diagnosis History of right knee joint replacement- Primary documented in this encounter Additional Health Concerns Infection Onset Date Last Indicated Resolved Time MRSA Comment:MRSA (methicillin resistant Staphylococcus aureus) 04/17/2020 05/21/2022 Assessment Noted Time A fall risk assessment has been complete d for the patient 08/25/2022 9:02 AM EDT A Body Mass Index follow-up plan has been documented for the patient 08/25/2022 10:47 AM EDT documented as of this encounter Care Teams Retort Or Condenser Press Operator Relationship Specialty Start Date End Date Juan José Kendall MD [address] [place] [id number] PCP - General 03/12/21 documented as of this encounter
--- OUTSIDE RECORDS SUMMARY | 2024-03-11 09:25 | XMS_ITS | Encounter Summary ---
Author Organization [employer] Address [address] [facility] [place] [address] Care Team Providers Care Guillotine Trimmer Name Role Phone Juan José Kendall MD Primary Care Provider + [phone] Juan José Kendlal MD Unavailable [phone] Encounter Details Date Type Department Care Team (Late st Contact Info) Description 06/27/2018 Transcribed Document [facility] Family Medicine [facility] [place] [address] ProviderLaurie MD [address] [place] [id number] Social History Tobacco Use Types Packs/Day Years Used Date Smoking Tobacco: Never Assessed Comments Unknown Sex and Gender Information Value Date Recorded Sex Assigned at Not on file Legal Sex Female 2:23 PM CDT Gender Identity Not on file Sexual Orientation Not on file documented as of this encounter Miscellaneous Notes * Cerner Conversion Note - Laurie ProviderMD - 06/27/2018 8:32 PM CDT Consult Phone Call Documentation Entered On: 06/28/2018 7:07 EDT Performed On: 06/27/2018 20:32 EDT by SHEN WOODS Phone Call for Consults Consult Phone Call/Page Attempt : First call Physician Requesting Consult : JONG SANTACRUZ MD-ORT Physician Requested for Consult : JONG SANTACRUZ MD-ORT Physician Covering for Consult : JONG SANTACRUZ MD-ORT Date and Time Call Returned : 06/28/2018 7:07 EDT SHEN WOODS - 06/28/2018 7:07 EDT Electronically signed by Interface, Sjh Conversion Press Tender Incendiary Grenade Cerner at 07/24/2022 3:43 PM CDT documented in this encounter Plan of Treatment Not on file documented as of this encounter Visit Diagnoses Not on filedocumented in this encounter Care Teams Guillotine Trimmer Relationship Specialty Start Date End Date Juan José Kendall MD [address] [facility] [address] [place] [address] PCP - General Family Medicine 12/25/22 Juan José Kendall MD [address] [facility] [address] [place] [address] Referring Physician Family Medicine 12/25/22 documented as of this encounter
--- OUTSIDE RECORDS SUMMARY | 2024-03-11 09:25 | XMS_ITS | Encounter Summary ---
Author Organization [employer] Address [address] [facility] [address] Care Team Providers Care Reeling Machine Setup Operator Name Role Phone Unavailable Primary Care Provider Unavailabl e Encounter Details Date Type Department Care Team (Late st Contact Info) Description 06/23/2018 Historic Encounter [facility] Radiology 1 [place] [address] Eris Bose MD [address] [place] [id number] Social History Tobacco Use Types Packs/Day [...] Priority Date/Time Associated Diagnosis Comments XR CHEST 2 VIEWS STAT 06/23/2018 5:35 PM EDT documented in this encounter Results * XR chest 2 views (06/23/2018 5:35 PM EDT) Anatomical Region Laterality Modality Chest X-Ray 06/23/2018 5:35 PM EDT Narrative 06/23/2018 10:06 PM EDT TWO VIEW CHEST HISTORY: Preoperative for knee surgery. COMPARISON: None. FINDINGS: ?The cardiac silhouette is normal in size. The mediastinum is unremarkable. The lungs are clear. There is no pneumothorax. The osseous structures are unremarkable. There is a retrocardiac density identified, most consistent with a moderate hiatal hernia. IMPRESSION: No acute cardiopulmonary process. Films reviewed, interpreted, and dictated by Dr. Bose. Transcribed by Flora Calero PA-C. I have personally viewed, interpreted and dictated the examination. I have read and agree with the above final transcribed report. Procedure Note Eris Bose MD - 07/21/2022 TWO VIEW CHEST HISTORY: Preoperative for knee surgery. COMPARISON: None. FINDINGS: The cardiac silhouette is normal in size. The mediastinum is unremarkable. The lungs are clear. There is no pneumothorax. The osseous structures are unremarkable. There is a retrocardiac density identified, most consistent with a moderate hiatal hernia. IMPRESSION: No acute cardiopulmonary process. Films reviewed, interpreted, and dictated by Dr. Bose. Transcribed by Flora Calero PA-C. I have personally viewed, interpreted and dictated the examination. I have read and agree with the above final transcribed report. us Eris Bose MD IMG DIAGNOSTIC IMAGING OR DERABLES Final Result documented in this encounter Visit Diagnoses Not on filedocumented in this encounter
--- OUTSIDE RECORDS SUMMARY | 2024-03-11 09:25 | XMS_ITS | Encounter Summary ---
Author Organization [employer] Address [address] [facility] [address] [address] Care Team Providers Care Chemical Blender Name Role Phone Unavailable Primary Care Provider Unavailabl e Encounter Details Date Type Department Care Team (Late st Contact Info) Description 06/23/2018 Historic Encounter [address] [address] ProviderTisha Historical Social History Tobacco [...] Associated Diagnosis Comments CBC W/ AUTO DIFF ([facility] BK DATA CONV) Routine 06/23/2018 4:06 PM EDT documented in this encounter Results * (ABNORMAL) CBC W/ AUTO DIFF ([facility] BKR DATA CONV) (06/23/2018 4:06 PM EDT) WBC 6.3 3.9 - 10.0 K/uL 06/23/2018 8:28 PM EDT RBC 4.62 3.93 - 5.22 Million/uL 06/23/2018 8:28 PM EDT Comment: No Red Blood Cell reference [...] ??12 ??Years ??150 ??Years ??3.93 5.22 Hgb 13.1 11.2 - 15.7 Gram/dL 06/23/2018 8:28 PM EDT Comment: No Hemoglobin reference ranges [...] ??12 ??Years ??150 ??Years ??11.2 15.7 Hct 40.9 34.1 - 44.9 % 06/23/2018 8:28 PM EDT Comment: No Hematocrit reference ranges [...] ??12 ??Years ??150 ??Years ??34.1 44.9 MCV 88.5 79.0 - 94.8 fL 06/23/2018 8:28 PM EDT MCH 28.4 25.6 - 32.2 pg 06/23/2018 8:28 PM EDT MCHC 32.0(L) 32.3 - 36.5 Gram/dL 06/23/2018 8:28 PM EDT RDW 14.5(H) 11.6 - 14.4 % 06/23/2018 8:28 PM EDT Platelet Count 208 163 - 369 K/uL 06/23/2018 8:28 PM EDT MPV 11.6 9.4 - 12.4 fL 06/23/2018 8:28 PM EDT Slide Review No 06/23/2018 8:55 PM EDT Blood 06/23/2018 4:06 PM EDT 06/23/2018 8:24 PM EDT us Sle Historical Provider LAB BLOOD ORDERABLES Fi nal Result [facility] [address] [phone] documented in this encounter Visit Diagnoses Not on filedocumented in this encounter
--- OUTSIDE RECORDS SUMMARY | 2024-03-11 09:25 | XMS_ITS | Encounter Summary ---
Author Organization [facility] Address [address] [place] [address] Care Team Providers Care Cytology Laboratory Manager Name Role Phone Juan José Kendall MD Primary Care Provider [phone] Encounter Details Date Type Department Care Team ([facility] st Contact Info) Description 07/01/2022 Telephone TRAUMA SURGERY [address] [place] [address] Silvia Simmons, RN Social History Tobacco Use [...] * Telephone Encounter - Silvia Simmons - 07/01/2022 10:18 AM EDT Tried to call patient to inform her that her my chart is not completely set up yet and still shows pending from our end. Patient has a telehealth appointment tomorrow 07/02/[address] Reynoso at 1030 and will not be able to attend appointment via telehealth if my chart is not set up. Patient did not answer and phone went straight to [employer]. Nothing further at this time. documented in [...] documented as of this encounter Care Teams Cytology Laboratory Manager Relationship Specialty Start Date End Date Juan José Kendall MD [address] [place] [address] PCP - General 03/12/21 documented as of this encounter
--- OUTSIDE RECORDS SUMMARY | 2024-03-11 09:25 | XMS_ITS | Encounter Summary ---
Author Organization [employer] Address [address] [facility] [place] [address] Care Team Providers Care Admin Asst Name Role Phone Juan José Kendall MD Primary Care Provider [phone] Juan José Kendall MD Unavailable [phone] Encounter Details Date Type Department Care Team (Late st Contact Info) Description 06/27/2018 Transcribed Document [facility] Family Medicine [address] [place] [address] ProviderLaurie MD [address] [place] [address] Social History Tobacco Use Types [...] ProviderMD - 06/27/2018 8:32 PM CDT Evaluation, Occupational Therapy Entered On: 06/28/2018 11:48 EDT Performed On: 06/28/2018 8:20 EDT by VALENTINA RETANA, OTR/L General Information, OT Visit Type, OT : Initial evaluation Patient Orders : Order Date Order Ordering 06/27/2018 20:33 OT Evaluation and Treatment Ordered By: JONG [...] 06/27/2018 00:00 Pure hypercholesterolemia, unspecified Therapy Diagnosis, OT : reduced mobility Admission Date : 06/27/2018 03:45 Assisted by, OT : Physical Therapist Personal Devices : Personal Devices Glasses Assistive Devices : Assistive Devices Brace VALENTINA RETANA OTR/Ivan - 06/28/2018 11:42 EDT General Status Patient Received Status : Long sitting in bed, Bed alarm activated, HOB elevated Treatment Start Time : 06/28/2018 8:20 EDT Patient Left Status : Up in chair, Chair alarm activated, RN/PCT informed, Communication board completed, All needs met and within reach RN/PCT Informed Comment : nursing ok'd tx. id and verified. Treatment End Time : 06/28/2018 8:38 EDT Treatment Time : 18 Minute(s) VALENTINA RETANA OTR/Ivan - 06/28/2018 11:42 EDT History and Environment, OT Living Situation, Therapy : Home Patient Lives With : Spouse Persons Assisting Patient at Home : Spouse Professional Skilled Services : None Persons Providing Information : Patient, Child/Children Home Equipment, Therapy : ADL Equipment, Board, slide, Commode, Walker, Wheelchair ADL Equipment : Credentialing Assistant Commode : Commode, bedside, Toilet seat, elevated Walker : Walker, front wheel Wheelchair : Wheelchair, standard Home Setup : One story Stairs : Yes Stair Location(s) : Outside Outside Stairs, Number of Steps : 1 VALENTINA RETANA OTR/Ivan - 06/28/2018 11:42 EDT Prior LOF Bathing, OT : Assist needed Prior LOF Bed Mobility : Independent Prior LOF Upper Body Dressing, OT : Independent Prior LOF Lower Body Dressing, OT : Assist needed Prior LOF Toileting : Independent Prior LOF Transfer : Independent Prior LOF Grooming, OT : Independent Prior LOF Wheel Chair Mobility : Assist needed Prior LOF for IADLs, OT : Assist needed VALENTINA RETANA OTRJennifer 06/28/2018 11:42 EDT Upper Extremity Upper Extremity Dominance : Right Right UE Active ROM : WFL Right UE Strength : WFL Left UE Active ROM : WFL Left UE Strength : WFL Upper Extremity Strength Impaired : No Fine Motor Coordination Impaired : No VALENTINA RETANA OTR/L - 06/28/2018 11:42 EDT Self Care/Home Management, OT Self Feeding Assist Level, OT : Independent, complete Grooming Assist Level, OT : Independent, complete Bathing Assist Level, OT : Assist, minimal Upper Body Dressing Assist Level, OT : Independent, complete Lower Body Dressing Assist Level, OT : Assist, minimal Toileting Assist Level : Assist, minimal Toileting Device : [id number] commode Toilet Transfer Assist Level : Assist, minimal Toilet Transfer Device : Belt, gait, Walker, rolling, [id number] commode VALENTINA RETANA OTR/L - 06/28/2018 11:42 EDT Mobility Device/Prosthesis/Wt Bearing Weight Bearing Status Maintained : Yes Weight Bearing Status : As tolerated Functional Mobility Device : Gait belt, Walker, front wheel Prosthetic with Functional Mobility : cast to Left LE. VALENTINA RETANA OTR/L - 06/28/2018 11:42 EDT Functional Mobility Mobility Grid Supine to Sit : Rehab Minimal assistance Sit to Stand : Rehab Minimal assistance Bed to Chair : Rehab Minimal assistance Stand to Sit : Rehab Minimal assistance VALENTINA RETANA OTR/L - 06/28/2018 11:42 EDT AM PAC Daily Activity Putting On/Taking Off Lower Body Clothes : A little Bathing (Washing, Rinsing, Drying) : A little Toileting Includes Toilet, Bedpan, Urinal : A little Putting On/Taking Off Upper Clothing : None Taking Care of Grooming : None Eating Meals : None AM-PAC Daily Activity Raw Score : 21 AM-PAC Daily Activity Standardized Score : 44.27 AM-PAC Daily Activity CMS 0-100% Score : 32.79 % VALENTINA RETANA OTR/L - 06/28/2018 11:42 EDT Image 3 - Images currently included in the form version of this document have not been included in the text rendition version of the form. Activity Tolerance, OT Activity Comment : GOOD VALENTINA RETANA OTR/L - 06/28/2018 11:42 EDT Cognition Assessment, OT Orientation : Oriented x 4 VALENTINA RETANA OTR/Ivan 06/28/2018 11:42 EDT Education OT Occupational Therapy Education Grid Activity of Daily Living Training : Verbalizes understanding, Returns demonstration Functional Mobility Training : Verbalizes understanding, Returns demonstration Home Safety : Verbalizes understanding Role of Occupational Therapy : Verbalizes understanding VALENTINA RETANA OTR/Ivan 06/28/2018 11:42 EDT Indication Assessment, OT Occupational Therapy Indicated : No Occupational Therapy Not Indicated : Other: Pt is scheduled to DC home today. VALENTINA RETANA OTR/L - 06/28/2018 11:42 EDT Plan of Care, OT OT Tx Plan/Goals Established w Patient : No Reason OT Treatment/Plan Not Established : see OT eval Plan of Care Comment, OT : see OT eval VALENTINA RETANA OTRIvan 06/28/2018 11:42 EDT Treatment Note Subjective Comment : pt ok'd tx. Additional Objective Information : EVAL = 8 min ADL = 10 min Pt educated on ADL transfers and LB self care tasks at RW level. Assessment : Pt is min assist with ADL transfers and LB self care tasks. Pt is scheduled to DC home today. No further skilled OT needs at this level of care. Plan for Treatment : OT eval only. VALENTINA RETANA OTR/Ivan 06/28/2018 11:42 EDT Pain Assessment Pain Scaled Used : 0-10 Pain scale Pain Score Pre-Intervention : 6 Pain Score During-Intervention : 6 Pain Score Post-Intervention. : 6 Location : Knee, left Pain Comment : nurse aware VALENTINA ERTANA OTR/Ivan 06/28/2018 11:42 EDT Image 1 - Images currently included in the form version of this document have not been included in the text rendition version of the form. Anticipated Discharge Needs, OT/PT Anticipated Discharge to OT : Other: to be determined. Recommend Continued Therapy at Discharge : Yes VALENTINA RETANA OTR/Ivan Orozco 06/28/2018 11:42 EDT Jeff OT Charges OT Selfcare/Hm Mgmt Ea 15 Min : 1 OT Eval Low Complexity : 1 VALENTINA RETANA OTR/Ivan - 06/28/2018 11:42 EDT Electronically signed by Aleks, [facility] Conversion Brewery Technician Cerner at 07/24/2022 3:50 PM CDT documented in this encounter Plan of Treatment Not on file documented as of this encounter Visit Diagnoses Not on filedocumented in this encounter Care Teams Admin Asst Relationship Specialty Start Date End Date Juan José Kendall MD [address] [facility] [address] [place] [address] PCP - General Family Medicine 12/25/22 Juan José Kendall MD [address] [facility] [address] [place] [address] Referring Physician Family Medicine 12/25/22 documented as of this encounter
--- OUTSIDE RECORDS SUMMARY | 2024-03-11 09:25 | XMS_ITS | Encounter Summary ---
Author Organization [facility] [employer] Address [address] [place] [address] Care Team Providers Care Hand Molder And Caster Name Role Phone Unavailable Primary Care Provider Unavailabl e Encounter Details Date Type Department Care Team (Late st Contact Info) Description 06/23/2018 Historic Encounter [address] [address] Provider [facility] Historical Social History Tobacco Use Types [...] Priority Date/Time Associated Diagnosis Comments AUTOMATED DIFFERENTIAL ([facility] DATA CONV) Routine 06/23/2018 4:06 PM EDT documented in this encounter Results * AUTOMATED DIFFERENTIAL ([facility] DATA CONV) (06/23/2018 4:06 PM EDT) Neut% 52.3 34.0 - 71.0 % 06/23/2018 8:28 PM EDT Lymph% 33.3 19.3 - 53.0 % 06/23/2018 8:28 PM EDT Dimmit% 8.2 4.7 - 12.5 % 06/23/2018 8 :28 PM EDT Eos% 5.4 1.0 - 7.0 % 06/23/2018 8: 28 PM EDT Baso% 0.6 0.0 - 1.0 % 06/23/2018 8: 28 PM EDT IG% 0 0 - 1 % 06/23/2018 8:2 8 PM EDT Neut# 3.30 1.56 - 6.13 K/uL 06/23/2018 8:28 PM EDT Lymph# 2.10 1.18 - 3.74 K/uL 06/23/2018 8:28 PM EDT Dimmit# 0.52 0.24 - 0.82 K/uL 06/23/2018 8:28 PM EDT Eos# 0.34 0.04 - 0.54 K/uL 06/23/2018 8:28 PM EDT Baso# 0.04 0.01 - 0.08 K/uL 06/23/2018 8:28 PM EDT IG# 0 0 - 0 x10(3)/uL 06/23/2018 8:28 PM EDT Blood 06/23/2018 4:06 PM EDT 06/23/2018 8:24 PM EDT Narrative [facility] - 06/23/2018 8:55 PM EDT Added by Discern Expert us [facility] Historical Provider LAB BLOOD ORDERABLES Fi nal Result [facility] [address] [place] [address], [facility] [phone] documented in this encounter Visit Diagnoses Not on filedocumented in this encounter
--- OUTSIDE RECORDS SUMMARY | 2024-03-11 09:25 | XMS_ITS | Encounter Summary ---
Author Organization [facility] [employer] Address [address] [place] [address] Care Team Providers Care Cellar Pumper Name Role Phone Unavailable Primary Care Provider Unavailabl e Encounter Details Date Type Department Care Team (Late st Contact Info) Description 06/23/2018 Historic Encounter [address] [address] Provider, [facility] Historical Social History Tobacco [...] Associated Diagnosis Comments CMP COMPREHENSIVE METABOLIC PANEL ([facility] DATA CONV) Routine 06/23/2018 4:06 PM EDT documented in this encounter Results * CMP COMPREHENSIVE METABOLIC PANEL ([facility] DATA CONV) (06/23/2018 4:06 PM EDT) Sodium Level 142 136 - 146 mmol/L 06/23/2018 8:42 PM EDT Potassium Level 3.9 3.5 - 5.1 mmol/L 06/23/2018 8:42 PM EDT Chloride Level 109 102 - 112 mmol/L 06/23/2018 8:42 PM EDT Carbon Dioxide Level 25 21 - 32 mmol/L 06/23/2018 8:42 PM EDT Anion Gap 12 9 - 20 06/23/2018 8:42 PM EDT Calcium Level 8.7 8.5 - 10.1 mg/dL 06/23/2018 8:42 PM EDT Glucose Level 90 74 - 106 mg/dL 06/23/2018 8:42 PM EDT Comment: [facility] has become aware of sulfasalazine and sulfapyridine [...] Urea Nitrogen 14 7 - 22 mg/dL 06/23/2018 8:42 PM EDT Creatinine Level 0.80 0.55 - 1.02 mg/dL 06/23/2018 8:42 PM EDT Bun/Creatinine 17.5 8.0 - 20.0 06/23/2018 8:42 PM EDT Albumin Level 3.4 3.4 - 5.0 Gram/dL 06/23/2018 8:42 PM EDT Protein, Total 6.6 6.4 - 8.2 Gram/dL 06/23/2018 8:42 PM EDT A/G Ratio 1.1 1.1 - 2.5 06/23/2018 8:42 PM EDT Alk Phos 95 27 - 136 Units/Lit er 06/23/2018 8:42 PM EDT ALT 13 12 - 78 Units/Lit er 06/23/2018 8:42 PM EDT Comment: [facility] has become aware of sulfasalazine and sulfapyridine [...] prior to administration of the drug. AST 21 5 - 37 Units/Lit er 06/23/2018 8:42 PM EDT Comment: [facility] has become aware of sulfasalazine and sulfapyridine [...] the drug. Bilirubin, Total 0.7 0.2 - 1.3 mg/dL 06/23/2018 8:42 PM EDT Globulin 3.2 1.5 - 4.5 Gram/dL 06/23/2018 8:42 PM EDT eGFR >60 >=60 mL/min/1. 73m2 06/23/2018 8:42 PM EDT Comment: GFR <60 suggests chronic kidney disease, if found over 3 month period. GFR <15 indicates renal failure. eGFR NonAfrican >60 >=60 mL/min/1. 73m2 06/23/2018 8:42 PM EDT Comment: GFR <60 suggests chronic kidney disease, if found over 3 month period. GFR <15 indicates renal failure. Blood 06/23/2018 4:06 PM EDT 06/23/2018 8:24 PM EDT [facility] Historical Provider LAB BLOOD ORDERABLES Fi nal Result [facility] [address] [place] [address], [facility] [phone] documented in this encounter Visit Diagnoses Not on filedocumented in this encounter
--- OUTSIDE RECORDS SUMMARY | 2024-03-11 09:25 | XMS_ITS | Encounter Summary ---
Author Organization [facility] Address [address] [id number] Care Team Providers Care Radar Scientist Name Role Phone Juan José Kendall MD Primary Care Provider +1- [phone] Encounter Details Date Type Department Care Team (Late st Contact Info) Description 07/16/2022 11:07 AM EDT Anesthesia Event [facility] [address] [place] [address] Zechariah Burnett MD [address] [place] [address] Anesthesia Record Procedure Summary Procedure Name Responsible Anesthesiologist Anesthesia Start Time Anesthesia Stop Time ERCP Zechariah Burnett MD 07/16/22 1107 07/16/22 1143 Events Date Time Event Comment 07/16/2022 1105 In Room 1107 An Start 1107 An Start Data 1109 An Induction The patient was reevaluated immediately before moderate or deep sedation use and before anesthesia induction. 1113 An Intubation 1118 Proc Start 1119 Anesthesia Ready 1128 Proc Fin 1135 An Extubation 1136 Out of Room 1137 an stop data 1143 Handoff to Receiving I compl eted my handoff to the receiving clinician during which we: 1. Identified the patient 2. Identified the responsible provider 3. Reviewed the pertinent medical history 4. Discussed the surgical course 5. Reviewed intra-op anesthesia management and issues during anesthesia 6. Set expectations for post-procedure period 7. Allowed opportunity for questions and acknowledgement of understanding. 1143 An Stop Meds Name Total lidocaine PF (Xylocaine-MPF) 2% 50 mg propofol (Diprivan) injection 10 mg/mL 1 50 mg rocuronium (ZeMuron) injection 10 mg/mL 30 mg dexamethasone (Decadron) injection 4 mg/ mL 4 mg ondansetron (Zofran) injection 2 mg/mL 4 mg sugammadex (Bridion) injection 100 mg/mL 200 mg levoFLOXacin (Levaquin) 500 mg in 100 mL (premix) 500 mg lactated Ringer's infusion 700 mL * Agents Name O2 N2O Air Sevoflurane Isoflurane Inspired Isoflurane Inspired Sevoflurane N2O Inspired N2O * Blood No blood administrations on file. Lines, Drains, and Airways Type Details Placement Removal Wound 05/22/22; 1241; N; Y es; Incision; Abdomen; Upper 05/22/22 1241 by Anna Arora RN Peripheral IV Placement Date: 07/04 06/25; Placement Time: 851; Catheter Size: 20 G; Orientation: Right, Posterior; Location: Forearm; Removal Date: 07/16/22; Removal Time: 115; Removal Reason: Discharge 07/16/22 08 by Alexandria Santana RN 07/16/22 115 by Dejon Escobar RN ETT Placement Date: 07/04 06/25; Placement Time: 111 (created via procedure documentation); Mask Ventilation: 1; Technique: Direct laryngoscopy; Type: ETT - single; Single Lumen Tube Size: 7 mm; Cuffed: Yes; Laryngoscope: Shanel; Blade Size: 3; Location: Oral; Grade View: Grade I; Insertion Attempts: 1; Placement Verification: Auscultation, Capnometry; Airway Comments: Atraumatic. No change to dentition. ; Placed by: KALPESH; Removal Date: 07/16/22; Removal Time: 11307/16/22 111 by Deanna Dong CRNA 07/16/22 113 by Deanna Dong CRNA documented in this encounter Social History Tobacco Use Types Packs/Day Years [...] AM EDT documented as of this encounter Miscellaneous Notes * Anesthesia Postprocedure Evaluation - Shay Melgar CRNA - 07/16/2022 11:43 AM EDT Patient: Trudi Blair Anesthesia Type: general Vitals Value Taken Time BP 120/76 07/16/22 1140 Temp 97.1 07/16/22 1143 Pulse 87 07/16/22 1142 Resp 23 07/16/22 1142 SpO2 96 % 07/16/22 1142 Vitals shown include unvalidated device data. Anesthesia Post Evaluation Patient location during evaluation: PACU Patient participation: complete - patient participated Level of consciousness: baseline and awake Pain management: adequate (pain score 0-3) Airway patency: natural airway Cardiovascular status: acceptable and hemodynamically stable Respiratory status: acceptable, spontaneous ventilation, unassisted and nonlabored ventilation Hydration status: acceptable No notable events documented. * Anesthesia Procedure Notes - Deanna Dong CRNA - 07/16/2022 11:21 AM EDT Associated Order(s): Airway Airway Date/Time: 07/16/2022 11:13 AM Urgency: elective Airway not difficult General Information and Staff Patient location during procedure: OR RETOUCHER: Deanna Dong CRNA Performed: KALPESH Indications and Patient Condition Indications for airway management: anesthesia Spontaneous Ventilation: absent Preoxygenated: yes Patient position: sniffing Mask difficulty assessment: 1 - vent by mask Final Airway Details Final airway type: endotracheal airway Successful airway: ETT Cuffed: yes Successful intubation technique: direct laryngoscopy Facilitating devices/methods: intubating stylet Endotracheal tube insertion site: oral Blade: Shanel Blade size: #3 ETT size (mm): 7.0 Cormack-Lehane Classification: grade I - full view of glottis Placement verified by: chest auscultation and capnometry Measured from: teeth ETT to teeth (cm): 21 Number of attempts at approach: 1 Ventilation between attempts: none Number of other approaches attempted: 0 Additional Comments Atraumatic. No change to dentition. * Anesthesia Preprocedure Evaluation - Zechariah Burnett MD - 07/16/2022 10:52 AM EDT Patient: Trudi Blair is a 66 yo woman with choledocholithiasis and acute cholecystitis for ERCP Procedure Information Date/Time: 07/16/22 0945 Scheduled providers: Arnol Cordova MD Procedure: ERCP Location: [facility] H Endoscopy Relevant Problems Cardio (+) Primary hypertension GI (+) Gastroesophageal reflux disease (+) Hiatal hernia Other (+) Staphylococcal arthritis of right knee (CMS/HCC) Past Medical History: Diagnosis Date ??? Anxiety ??? Cancer (CMS/HCC) cervical ??? Chronic pain disorder ??? Delayed emergence from general anesthesia ??? Diverticulosis ??? 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 GERD (gastroesophageal reflux disease) ??? Hiatal hernia ??? History of transfusion ??? Hypercholesteremia ??? Hypertension now she is hypotension and takes Midodrine to elevate bp ??? 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, sequela 01/22/2021 ??? Joint pain ??? Osteoarthritis ??? Staphylococcal arthritis, right knee (CMS/HCC) 01/22/2021 Anesthesia Evaluation Clinical information reviewed: Med Hx Tobacco Allergies Surg Hx Fam Hx Soc Hx NPO Status Date of Last Liquid: 07/15/22 Time of Last Liquid: 0000 Date of Last Solid: 07/15/22 Time of Last Solid: 0000 Physical Exam Airway Mallampati: II Mouth opening: normal TM distance: >3 FB Neck ROM: full Cardiovascular - normal exam Rhythm: regular Rate: normal Dental - normal exam Pulmonary - normal exam Neurological Oriented: normal to time, normal to place and normal to person and oriented to person, place and time Skin Musculoskeletal Extremities Anesthesia Plan ASA 3 Anesthesia technique(s) discussed with the patient/family: General Anesthesia plan agreed upon was: general Post operative pain planned: discuss with surgical team Induction planned: intravenous Airway management planned: general endotracheal Anesthetic plan and risks discussed with patient. Use of blood products discussed with patient who consented to blood products. Plan discussed with RETOUCHER. Additional Equipment Requests documented in this encounter Plan of Treatment Not on file documented as of this encounter Procedures Procedure Name Priority Date/Time Associated Diagnosis Comments PB ANESTHESIA PLACEHOLDER Routine 07/16/2022 11:13 AM EDT OH AN ELECTIVE ENDOTRACHEAL AIRWAY Routine 07/16/2022 11:13 AM EDT documented in this encounter Results * OH AN ELECTIVE ENDOTRACHEAL AIRWAY, PB ANESTHESIA PLACEHOLDER (07/16/2022 11:13 AM EDT) Narrative Deanna Dong CRNA - 07/16/2022 11:13 AM EDT Deanna Dong CRNA ? 07/16/2022 11:22 AM Airway Date/Time: 07/16/2022 11:13 AM Urgency: elective Airway not difficult General Information and Staff Patient location during procedure: OR RETOUCHER: Deanna Dong CRNA Performed: RETOUCHER Indications and Patient Condition Indications for airway management: anesthesia Spontaneous Ventilation: absent Preoxygenated: yes Patient position: sniffing Mask difficulty assessment: 1 - vent by mask Final Airway Details Final airway type: endotracheal airway Successful airway: ETT Cuffed: yes Successful intubation technique: direct laryngoscopy Facilitating devices/methods: intubating stylet Endotracheal tube insertion site: oral Blade: Shanel Blade size: #3 ETT size (mm): 7.0 Cormack-Lehane Classification: grade I - full view of glottis Placement verified by: chest auscultation and capnometry Measured from: teeth ETT to teeth (cm): 21 Number of attempts at approach: 1 Ventilation between attempts: none Number of other approaches attempted: 0 Additional Comments Atraumatic. No change to dentition. Zechariah Burnett MD ANESTHESIA ORDERABLES Final Resu lt documented in this encounter Visit Diagnoses Not on filedocumented in this encounter Administered Medications Inactive Administered Medications - up to 3 most recent administrations Medication Order MAR Action Action Date Dose Rate Site dexamethasone (Decadron) injection Intravenous, As needed, Starting on Anuradha 07/16/22 at 1125, Until Anuradha 07/16/22 at 1143, Routine, Anesthesia Intraprocedure Given 07/16/2022 11:25 AM EDT 4 mg lactated Ringer's infusion 100 mL/hr, Intravenous, Once, 1 dose, On Anuradha 07/16/22 at 0915, Routine New Bag 07/16/2022 11:05 AM EDT levoFLOXacin (Levaquin) IVPB Intravenous, As needed, Starting on Anuradha 07/16/22 at 1122, Until Anuradha 07/16/22 at 1143, Administer over 60 Minutes, Routine Given 07/16/2022 11:22 AM EDT 500 mg lidocaine PF (Xylocaine) 2 % injection Intravenous, As needed, Starting on Anuradha 07/16/22 at 1107, Until Anuradha 07/16/22 at 1143, Routine, Anesthesia Intraprocedure Given 07/16/2022 11:07 AM EDT 50 mg ondansetron (Zofran) injection Intravenous, As needed, Starting on Anuradha 07/16/22 at 1125, Until Anuradha 07/16/22 at 1143, Routine, Anesthesia Intraprocedure Given 07/16/2022 11:25 AM EDT 4 mg propofol (Diprivan) injection Intravenous, As needed, Starting on Anuradha 07/16/22 at 1109, Until Anuradha 07/16/22 at 1143, Routine, Anesthesia Intraprocedure Given 07/16/2022 11:09 AM EDT 150 mg rocuronium (ZeMuron) injection Intravenous, As needed, Starting on Anuradha 07/16/22 at 1110, Until Anuradha 07/16/22 at 1143, Routine, Anesthesia Intraprocedure Given 07/16/2022 11:10 AM EDT 30 mg sugammadex (Bridion) 200 MG/2ML injection Intravenous, As needed, Starting on Anuradha 07/16/22 at 1128, Until Anuradha 07/16/22 at 1143, Routine, Anesthesia Intraprocedure Given 07/16/2022 11:28 AM EDT 200 mg documented in this encounter Additional Health Concerns Infection Onset Date Last Indicated Resolved Time MRSA Comment:MRSA (methicillin resistant Staphylococcus aureus) 04/17/2020 05/21/2022 Assessment Noted Time A fall risk assessment has been complete d for the patient 04/23/2021 1:07 PM EST documented as of this encounter Care Teams Radar Scientist Relationship Specialty Start Date End Date Juan José Kendall MD [address] [place] [id number] PCP - General 03/12/21 documented as of this encounter
--- OUTSIDE RECORDS SUMMARY | 2024-03-11 09:25 | XMS_ITS | Clinical Summary ---
Author Organization [facility] Address [address] [place] [address] Care Team Providers Care Brand Ambassador Name Role Phone Juan José Kendall MD Primary Care Provider [phone]- [phone] Allergies Active Allergy Reactions Criticality Noted Date Comments Clarithromycin Other - please docum ent in the comment field,Unknown - Patient states they do not know rxn details Low 10/25/2018 severe acid reflux Medications atorvastatin (Lipitor) 20 MG tablet Take 20 mg by mouth every night. 11/18/2019 Active midodrine (Proamatine) 10 MG tablet Take 10 mg by mouth 2 (two) times a day. 11/13/2019 Active morphine CR (MS Contin) 15 MG 12 hr tablet Take 30 mg by mouth 2 (two) times a day. 2 tablets twice daily 01/09/2020 Active pantoprazole (ProtoNix) 40 MG EC tablet Take 40 mg by mouth 1 (one) time each day before breakfast. 11/18/2019 Active topiramate 50 MG tablet Take 50 mg by mouth 2 (two) times a day. 07/19/2018 Active traZODone (Desyrel) 50 MG tablet Take 50 mg by mouth every night. 11/18/2019 Active ondansetron (Zofran) 4 MG tablet Take 4 mg by mouth 3 (three) times a day if needed. 02/04/2021 Active levothyroxine (Synthroid, Levoxyl) 25 MCG tablet Take 25 mcg by mouth 1 (one) time each day. Active gabapentin (Neurontin) 300 MG capsule Take 1 capsule by mouth every morning and 2 capsules at bedtime Active brompheniramine -pseudoephedrin e-DM 30-2-10 MG/5ML syrup Take 5 mL by mouth 4 (four) times a day if needed. Active hyoscyamine (Anaspaz,Levsin ) 0.125 MG tablet Take 0.125 mg by mouth 2 (two) times a day. Active potassium chloride ER (Micro-K) 10 MEQ ER capsule Take 10 mEq by mouth 2 (two) times a day. Do not crush or chew. Active magnesium oxide (Mag-Ox) 400 mg tablet Take 400 mg by mouth 1 (one) time each day. Active diphenhydrAMINE (BENADryl) 50 MG tablet Take 50 mg by mouth at night if needed for sleep. Active Active Problems Problem Noted Date Diagnosed Date Chronic pain disorder 05/21/2022 Choledocholithiasis with acute cholecystitis Gastroesophageal reflux disease 01/22/2021 Hiatal hernia 01/22/2021 Primary hypertension 01/22/2021 Staphylococcal arthritis of right knee Overview (05/21/2022): Added automatically from request for surgery [id number] Recurrent MRSA Receiving intravenous antibiotic treatment as ou tpatient 06/04/2020 Knee pain 10/25/2018 Resolved Problems Problem Noted Date Diagnosed Date Resolved Date Staphylococcal arthritis, right knee 01/22/2021 05/21/2022 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, sequela 01/22/2021 05/21/2022 Failed total knee replacement 10/16/2019 05/21/2022 Immunizations Name Administration Dates Next Due Moderna COVID-19 Vaccine Bivalent 6months+ 03/20 Family History Medical History Relation Name Comments Hypertension Other 1 Other cancer Other 2 Relation Name Status Comments Other 1 Other 2 Social History Tobacco Use Types Packs/Day Years [...] AM EST Sexual Orientation Not on file Last Filed Vital Signs Vital Sign Reading Time Taken Comments Blood Pressure 108/74 08/25/2022 9:03 AM EDT Pulse 84 08/25/2022 9:03 AM EDT Temperature 36.2 ??C (97.1 ??F) 07/16/2022 1 1:40 AM EDT Respiratory Rate 13 07/16/2022 12:2 0 PM EDT Oxygen Saturation 98% 08/25/2022 9:03 AM EDT Inhaled Oxygen Concentration - - Weight 74.8 kg (164 lb 14.5 oz) 08/25/2022 9:03 AM EDT Height 167.6 cm (5' 6 ) 07/16/2022 8:43 AM EDT Body Mass Index 26.62 07/16/2022 8:43 AM EDT Plan of Treatment Health Maintenance Due Date Last Done Comments [facility]-Bone Density Scan 1954 [facility]-Depression Screening 1954 [facility]-Hepatitis C Screening 1954 [facility]-Medicare Annual Wellness (AWV) 1954 [facility]-Infant/Child/Adol SDOH Screenings 1954 [facility]- SDOH Screenings 1972 [facility]-Adult SDOH Screenings 1972 [facility]-DTaP,Tdap,and Td Vaccine s (1 - Tdap) 1973 CT Colonography 08/24/1999 Colonoscopy 08/24/1999 FIT-DNA 08/24/1999 FIT 08/24/1999 FOBT 08/24/1999 Sigmoidoscopy 08/24/1999 [facility]-Colorectal Cancer Screening 08/24/1999 [facility]-Breast Cancer Screening 2004 [facility]-Zoster Vaccines (1 of 2) 2004 [facility]-Pneumococcal Vaccine: 65 + Years (1 of 1 - PCV) 08/24/2019 [id number] Vaccine (2 - 2023- season) 2023 03/20/2022 [facility]-Influenza Vaccine (#1) 12/05/202303/20, 03/18/2021 [facility]-RSV Vaccine: 60+ Years o r (1 - 1-dose 75+ series) 2029 [facility]-Obesity Intervention Completed 08/25/2022 [facility]-HIB Vaccines Aged Out No longer e ligible based on patient's age to complete this topic [facility]-HPV Vaccines Aged Out No longer e ligible based on patient's age to complete this topic [facility]-Hepatitis A Vaccines Aged Out No longer eligible based on patient's age to complete this topic [facility]-IPV Vaccines Aged Out No longer e ligible based on patient's age to complete this topic [facility]-Rotavirus Vaccines Aged Out No lo nger eligible based on patient's age to complete this topic Medical Devices Implanted Type Area Bookmobile Clerk Device Identifier Shelf Expiration Date Model / Serial / Lot Stent Zimmon 7fr X 7cm - [id number] Implanted:Qty: 1 on 05/21/2022 at [facility] Other (See Comments) [id number] 02/19/2025 [id number] / / [id number] Stent Biliary 10 X 60mm - [id number] Implanted:Qty: 1 on 05/21/2022 at [facility] Other (See Comments) [id number] 01/03/2025 [id number] / [id number] / [id number] Explanted Type Area Bookmobile Clerk Device Identifier Shelf Expiration Date Model / Serial / Lot Total Knee Bilateral: Knee Additional Health Concerns Infection Onset Date Last Indicated MRSA Comment:MRSA (methicillin resistant Staphylococcus aureus) 04/17/2020 05/21/2022 Insurance MEDICARE [facility] Advance Directives * Full Code (Latest Code Status on File) Date Activated Date Inactivated Comments 05/20/2022 11:12 PM 05/23/2022 2:50 PM Question Answer Comments Patient has decision-making capacity? Yes * Full Code Date Activated Date Inactivated Comments 01/22/2021 4:15 PM 01/24/2021 4:15 PM Question Answer Comments Patient has decision-making capacity? Yes Care Teams Brand Ambassador Relationship Specialty Start Date End Date Juan José Kendall MD [address] [place] [id number] PCP - General 03/12/21
--- OUTSIDE RECORDS SUMMARY | 2024-03-11 09:25 | XMS_ITS | Encounter Summary ---
Author Organization [email or web address] Address [address] [place] [address] Care Team Providers Care Blister Packaging Machine Operator Name Role Phone Juan José Kendall MD Primary Care Provider + [phone] Juan José Kendall MD Unavailable [phone] Encounter Details Date Type Department Care Team (Late st Contact Info) Description 06/27/2018 Transcribed Document [facility] [facility] [address] ProviderLaurie MD [address] [place] [id number] Social History Tobacco Use Types Packs/Day Years Used Date Smoking Tobacco: Never Assessed Comments Unknown Sex and Gender Information Value Date Recorded Sex Assigned at Not on file Legal Sex Female 2:23 PM CDT Gender Identity Not on file Sexual Orientation Not on file documented as of this encounter Miscellaneous Notes * Cerner Conversion Note - Historical ProviderMD - 06/27/2018 12:21 PM CDT Spiritual Care Assessment Entered On: 06/28/2018 8:35 EDT Performed On: 06/28/2018 8:15 EDT by LAWRENCE RICHARDS Chaplain-Non Cert General Information Initial Visit : Yes Referred by : Nurse Ministry Provided to : Patient, Family/Significant other LAWRENCE RICHARDS Chaplain-Non Cert - 06/28/2018 8:33 EDT Spiritual Assessment Spiritual Assessment Comment/Summary Points : Trudi is a 62-year-old patient who requested prayer related to her surgery. Her son is on the couch in her room and appears supportive of the patient. Provided pastoral care, empathic listening, emotional support and prayer. Spirital Assessment Comment/Summary Report : SPIRITUAL ASSESSMENT COMMENT/SUMMARY No qualifying data available. LAWRENCE RICHARDS Chaplain-Non Cert - 06/28/2018 8:33 EDT Interventions Emotional Support : Emotional, Empathic/Engaged listening, Family/Significant other supported, Feelings expressed Spiritual and Orthodoxy : Prayer shared LAWRENCE RICHARDS Chaplain-Non Cert - 06/28/2018 8:33 EDT Electronically signed by [facility] Conversion Emergency Medical Technician/Driver Cerner at 07/24/2022 3:41 PM CDT documented in this encounter Plan of Treatment Not on file documented as of this encounter Visit Diagnoses Not on filedocumented in this encounter Care Teams Blister Packaging Machine Operator Relationship Specialty Start Date End Date Juan José Kendall MD [address] [facility] [address] [place] [phone] PCP - General Family Medicine 12/25/22 Juan José Kendall MD [address] [facility] [address] [place] [phone] Referring Physician Family Medicine 12/25/22 documented as of this encounter
--- OUTSIDE RECORDS SUMMARY | 2024-03-11 09:25 | XMS_ITS | Encounter Summary ---
Author Organization [facility] Address [address] [place] [address] Care Team Providers Care Trading Specialist Name Role Phone Juan José Kendall MD Primary Care Provider [phone] Encounter Details Date Type Department Care Team (Late st Contact Info) Description 06/01/2022 Telephone [facility] General Surgery [address] [place] [address] Irma Reynoso MD [address] [place] [address] Social History Tobacco Use Types Packs/Day Years [...] suspected to have Coronavirus/COVID-19? No / Unsure 05/23/2022 11:28 AM EST documented as of this encounter Miscellaneous Notes * Telephone Encounter - Merlyn Jones RN - 06/02/2022 2:44 PM EST Pt is scheduled was notified of the appt. Nothing further at this time. * Telephone Encounter - Ayden Cloudclaudia Gaytan - 06/01/2022 12:45 PM EST Patient Phone Message Reason for Call: Patient has a DC AMB F/U request in [facility] to follow up w/ Gen surg/ She wants to to be seen for TH if possible / The request was Failed out and sent to clinic for scheduling because nothing was available in [facility] in time frame for TH appt for patient to be scheduled / please review and contact for scheduling / patient also says she has been in pain Best contact number and optimal time of day to Conatact patient : [phone]/ patient Note: Please do not reply to this message. Follow-up communication and further actions as a result of this message need to be communicated with the patient directly, if the patient is not active onMyChart. If the patient is active on MyChart, they will receive notification of the communication/outcome via [employer]. documented in this encounter Plan of Treatment [...] documented as of this encounter Care Teams Trading Specialist Relationship Specialty Start Date End Date Juan José Kendall MD [address] [place] [id number] PCP - General 03/12/21 documented as of this encounter
--- OUTSIDE RECORDS SUMMARY | 2024-03-11 09:25 | XMS_ITS | Encounter Summary ---
Author Organization [employer] Address [address] [place] [address] Care Team Providers Care Analytical Laboratory Technician Name Role Phone Juan José Kendall MD Primary Care Provider + [phone] Juan José Kendall MD Unavailable [phone] Encounter Details Date Type Department Care Team (Late st Contact Info) Description 06/27/2018 Transcribed Document [facility] [place] [address] Laurie Garcia MD [address] [place] [id number] Social History Tobacco Use Types Packs/Day Years Used Date Smoking Tobacco: Never Assessed Comments Unknown Sex and Gender Information Value Date Recorded Sex Assigned at Not on file Legal Sex Female 2:23 PM CDT Gender Identity Not on file Sexual Orientation Not on file documented as of this encounter Miscellaneous Notes * Cerner Conversion Note - Historical ProviderMD - 06/27/2018 6:58 PM CDT DATE OF PROCEDURE: 06/27/2018 PREOPERATIVE DIAGNOSIS(ES): 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 PROCEDURE: Extensor apparatus reconstruction with polypropylene graft and patellar tendon repair and screw and methylmethacrylate fixation of grafts, left knee. SURGEON: Shay Guerrero MD REFINISHER: Ester Cloud PA-C DESCRIPTION OF PROCEDURE: Patient was taken to the operating room and after satisfactory general anesthesia she was placed supine on the operating table. Her left knee was scrubbed with Hibiclens and then this was removed with sterile saline. The knee was then dried and treated with alcohol. She subsequently had the standard prep and then was draped in the usual manner. A time-out was performed and the patient's name, the side, the site, the planned surgical procedure were all verified. The leg was elevated and exsanguinated and the tourniquet about the left upper thigh was inflated to 350 mmHg. The previous incision on the anterior aspect of the knee was utilized just down to the extensor apparatus. The patient had clear rupture of the patellar tendon and the previous Graftjacket was no longer functional. This was therefore removed along with multiple sutures. Her patellar tendon was grossly adequate and beyond reasonable reconstruction. Therefore, the soft tissue in the area of the patellar tendon including the retained tendon were repaired by putting sutures in, but these were not tied initially. A quadricepsplasty was performed by passing a Calderon elevator on the anterior surface of the femur. Medial and lateral incisions were made adjacent to the medial and lateral edge of the rectus femoris to allow the patella to be brought distally and the rectus femorals brought distally as well. The tibial tubercle was identified and a longitudinal incision was made overlying the tubercle. Multiple drill holes were made followed by a osteotome to remove approximately 1.5 cm wedge of bone. The underlying bone was curetted removing the cancellous bone. The cavitary area created was then irrigated thoroughly. The polypropylene graft was created by rolling the large sheet of polypropylene material into multi thick layer approximately 10-12 layers thick. This was 2 cm wide and approximately 15 cm long. First assurance was made that this could be stuffed into the cavitary area of the proximal tibia. The polypropylene graft was then removed and the cavitary area irrigated thoroughly. It was dried and then methylmethacrylate/bone cement was mixed and was injected into the cavitary lesion using a Leonardo syringe. The cement was pressurized and then the polypropylene graft was packed in to this area. It was pushed deep into the cavitary lesion and more cement applied. This was then held level to the leading edge of the anterior tibia. This was held and pressurized until all the cement had hardened. Further support was created by inserting a 4 mm screw over a washer, further supporting the cement into the proximal tibia. The polypropylene graft was then tested and pulled very firmly and it was seemingly quite tight. Incisions were made on the medial and lateral border of the rectus femoris and a quadriceps plasty performed using the Calderon elevator. The gakona patellar tendon and adjacent soft tissue were utilized with [id number] technique to close the tendon area tightly as possible while simultaneously applying distal traction on the patella, bringing it distally over the femoral prosthesis as far as possible. The graft was then pulled tight from proximally and sutured as tightly as possible over the patella and into the vastus medialis, vastus lateralis, and rectus femoris. The sutures were combination of #5 and #2 MaxBraid, which gave a very tight extensor apparatus reconstruction. Any remaining holes in the capsule or synovium closed with 0 and 2-0 Vicryls and attempted to get a watertight closure over the prosthesis of the knee. Multiple #2 and #5 MaxBraid sutures were placed into the quadriceps apparatus and into the polypropylene trying to get a rough edge of the polypropylene. Dictation ends at this point Shay Guerrero M.D. Dict: 06/27/2018 18:58:16 Trans: 06/28/2018 02:15:45 Processed: 06/28/2018 12:37:33 [place] CC1: Shay Guerrero M.D. documented in this encounter Plan of Treatment Not on file documented as of this encounter Visit Diagnoses Not on filedocumented in this encounter Care Teams Analytical Laboratory Technician Relationship Specialty Start Date End Date Juan José Kendall MD [address] [facility] [address] [place] [address] PCP - General Family Medicine 12/25/22 Juan José Kendall MD [address] [place] [facility] [address] [place] [address] Referring Physician Family Medicine 12/25/22 documented as of this encounter
--- OUTSIDE RECORDS SUMMARY | 2024-03-11 09:25 | XMS_ITS | Encounter Summary ---
Author Organization [employer] Address [address] [place] [address] Care Team Providers Care Concessionist Name Role Phone Juan José Kendall MD Primary Care Provider [phone]- [phone] Juan José Kendall MD Unavailable [phone] Encounter Details Date Type Department Care Team (Late st Contact Info) Description 06/27/2018 Transcribed Document [facility] Family Medicine Replaced by [facility] [place] [address] ProviderLaurie MD [address] [place] [address] Social History Tobacco Use Types Packs/Day Years Used Date Smoking Tobacco: Never Assessed Comments Unknown Sex and Gender Information Value Date Recorded Sex Assigned at Not on file Legal Sex Female 2:23 PM CDT Gender Identity Not on file Sexual Orientation Not on file documented as of this encounter Miscellaneous Notes * Cerner Conversion Note - Laurie ProviderMD - 06/27/2018 2:54 PM CDT Peripheral Nerve Block Entered On: 06/27/2018 14:54 EDT Performed On: 06/27/2018 14:54 EDT by Indira Minor Nurse - azael Peripheral Nerve Block Site Marked and Visible : Yes Peripheral Nerve Block Start Date/Time : 06/27/2018 14:00 EDT Verbally Confirm Pt, Site, and Procedure : Yes Site Preparation : Chlorhexidine (Hibiclens) Peripheral Nerve Block : Other: adductor canal Laterality : Left Peripheral Nerve Block Performed by : AMRITA AVENDANO MD Medication Delivery Method : Single Shot Peripheral Nerve Block Assisted by : Iván, Indira A, Nurse - other Ultra sound used during insertion : Yes Nerve Block Activity, Patient Tolerance : Good Peripheral Nerve Block Comment : pre op nerve block per surgeon request Peripheral Nerve Block End Date/Time : 06/27/2018 14:15 EDT Indira Minor, Nurse - other - 06/27/2018 14:54 EDT Electronically signed by [facility], [facility] Conversion Disease Intervention Specialist Cerner at 07/24/2022 3:43 PM CDT documented in this encounter Plan of Treatment Not on file documented as of this encounter Visit Diagnoses Not on filedocumented in this encounter Care Teams Concessionist Relationship Specialty Start Date End Date Juan José Kendall MD [address] [place] [facility] [address] [place] [address] PCP - General Family Medicine 12/25/22 Juan José Kendall MD [address] [place] [facility] [address] [place] [address] Referring Physician Family Medicine 12/25/22 documented as of this encounter
--- OUTSIDE RECORDS SUMMARY | 2024-03-11 09:25 | XMS_ITS | Encounter Summary ---
Author Organization [employer] Address [address] [place] [address] Care Team Providers Care Loftsman Name Role Phone Unavailable Primary Care Provider Unavailabl e Encounter Details Date Type Department Care Team (Late st Contact Info) Description 06/23/2018 Historic Encounter [address] [address] Provider, [facility] Historical Social History Tobacco Use Types Packs/Day [...] Procedure Name Priority Date/Time Associated Diagnosis Comments PT AND PTT Routine 06/23/2018 4:06 PM EDT documented in this encounter Results * PT AND PTT (06/23/2018 4:06 PM EDT) PT 10.7 9.6 - 11.5 Second(s) 06/23/2018 9:19 PM EDT INR 1.0 0.9 - 1.1 06/23/2018 9:1 9 PM EDT PTT 29.0 24.5 - 30.1 Second(s) 06/23/2018 9:19 PM EDT Blood 06/23/2018 4:06 PM EDT 06/23/2018 8:24 PM EDT [facility] Historical Provider PATHOLOGY/CYTOLOGY DONNA NEW Final Result [facility] [address] [place] [address], [facility] [phone] documented in this encounter Visit Diagnoses Not on filedocumented in this encounter
--- OUTSIDE RECORDS SUMMARY | 2024-03-11 09:25 | XMS_ITS | Encounter Summary ---
Author Organization [employer] Address [address] [place] [address] Care Team Providers Care Implement Mechanic Name Role Phone Unavailable Primary Care Provider Unavailabl e Encounter Details Date Type Department Care Team (Late st Contact Info) Description 06/23/2018 Historic Encounter [address] [address] Provider [facility] Historical Social History Tobacco Use Types Packs/Day [...] Name Priority Date/Time Associated Diagnosis Comments URINALYSIS MICROSCOPIC ([facility] DATA CONV) Routine 06/23/2018 4:06 PM EDT documented in this encounter Results * (ABNORMAL) URINALYSIS MICROSCOPIC ([facility] DATA CONV) (06/23/2018 4:06 PM EDT) Correlate UA Correlated Correlated 06/23/2018 8:39 PM EDT Ur RBC None Seen None Seen 06/23/2018 8:39 PM EDT Ur WBC 10-20(A) None Seen /HPF 06/23/2018 8:39 PM EDT Ur WBC Clumps Present(A) 06/23/2018 8:39 PM EDT Ur Bacteria 4+(A) None Seen 06/23/2018 8:39 PM EDT Ur Mucous Trace(A) 06/23/2018 8:39 PM EDT Ur Amorph Trace(A) 06/23/2018 8:39 PM EDT Ur Epithelial Cells 0-2(A) None Seen /HPF 06/23/2018 8:39 PM EDT 06/23/2018 4:06 PM EDT 06/23/2018 8:24 PM EDT Narrative [facility] - 06/23/2018 8:39 PM EDT Added by Discern Expert [facility] Historical Provider URINE ORDERABLES Final Result [facility] [address] [phone] documented in this encounter Visit Diagnoses Not on filedocumented in this encounter
--- OUTSIDE RECORDS SUMMARY | 2024-03-11 09:25 | XMS_ITS | Encounter Summary ---
Author Organization Healthcare Address [address] [place] [address] Care Team Providers Care Entertainer Or Variety Artist Name Role Phone Juan José Kendall MD Primary Care Provider [phone] Encounter Details Date Type Department Care Team (Latest Contact Info) Description 07/16/2022 8:50 AM EDT - 07/16/2022 11:59 PM EDT Hospital Encounter [facility] [address] [place] [address] Choledocholithiasis with acute cholecystitis Discharge Disposition: Home [...] AM EDT documented as of this encounter Medications at Time of Discharge [...] night. 11/18/2019 documented as of this encounter Plan of Treatment Not on file documented as of this encounter Procedures Procedure Name Priority Date/Time Associated Diagnosis Comments FL ERC Routine 07/16/2022 11:33 AM EDT Choledocholithiasis with acute cholecystitis documented in this encounter Results * FL ERC (07/16/2022 11:33 AM EDT) Anatomical Region Laterality Modality Bile duct Radio Fluoroscop y Impressions 07/16/2022 4:01 PM EDT Stent removal. Please see separate procedural note by Endoscopist for additional findings and details. CRITICAL RESULT: ?? No. COMMUNICATION: Per this written report. Approved by Nery Ackerman MD on 07/16/2022 1:19 PM By electronically signing this report, I, the attending physician, attest that I have personally reviewed the images/data for the above examination(s) and agree with the final edited report. Dictated by Nery Ackerman MD on 07/16/2022 1:19 PM Signed by Carmen Weber MD on 07/16/2022 4:01 PM Narrative 07/16/2022 4:01 PM EDT Exam/Procedure: FL ERC ordered by DARYN EVANS [id number] CLINICAL INDICATION: ERC Choledocholithiasis with acute cholecystitis TECHNIQUE: 4 retained images from ERCP performed by Physician Endoscopist. Fluoroscopy Time: 0.6 minutes. COMPARISON: ERCP from 05/21/2022 FINDINGS: Notch Machine Operator: A metallic biliary stent and a plastic pigtail biliary stent are in place. Surgical clips are in the right upper quadrant. Lumbar fusion hardware is in place. Biliary Ducts: Both the plastic and metal stents were removed. The common bile duct was deeply cannulated and contrast was injected with partial opacification. Gallbladder: Surgically absent. Pancreatic Ducts: Not opacified on provided images. Procedure Note Carmen Weber MD - 07/16/2022 Exam/Procedure: FL ERC ordered by DARYN EVANS, [id number] CLINICAL INDICATION: ERC Choledocholithiasis with acute cholecystitis TECHNIQUE: 4 retained images from ERCP performed by Physician Endoscopist. Fluoroscopy Time: 0.6 minutes. COMPARISON: ERCP from 05/21/2022 FINDINGS: Notch Machine Operator: A metallic biliary stent and a plastic pigtail biliary stent are inplace. Surgical clips are in the right upper quadrant. Lumbar fusionhardware is in place. Biliary Ducts: Both the plastic and metal stents were removed. The commonbile duct was deeply cannulated and contrast was injected with partialopacification. Gallbladder: Surgically absent. Pancreatic Ducts: Not opacified on provided images. IMPRESSION: Stent removal. Please see separate procedural note by Endoscopist for additional findingsand details. CRITICAL RESULT: No. COMMUNICATION: Per this written report. Approved by Nery Ackerman MD on 07/16/2022 1:19 PM By electronically signing this report, I, the attending physician, attestthat I have personally reviewed the images/data for the aboveexamination(s) and agree with the final edited report. Dictated by Nery Ackerman MD on 07/16/2022 1:19 PM Signed by Carmen Weber MD on 07/16/2022 4:01 PM Daryn Evans MD IMG FLUOROSCOPY PROCEDURES F inal Result documented in this encounter Visit Diagnoses Diagnosis [...] documented as of this encounter Care Teams Entertainer Or Variety Artist Relationship Specialty Start Date End Date Juan José Kendall MD [address] [place] [address] PCP - General 03/12/21 documented as of this encounter
--- OUTSIDE RECORDS SUMMARY | 2024-03-11 09:25 | XMS_ITS | Encounter Summary ---
Author Organization [employer] Address [address] [place] [address] Care Team Providers Care Jailer Name Role Phone Juan José Kendall MD Primary Care Provider +- [phone] Juan José Kendall MD Unavailable [phone] Encounter Details Date Type Department Care Team (Late st Contact Info) Description 06/27/2018 Transcribed Document [facility] [facility] [place] [address] Laurie Garcia MD [address] [place] [id number] Social History Tobacco Use Types Packs/Day Years Used Date Smoking Tobacco: Never Assessed Comments Unknown Sex and Gender Information Value Date Recorded Sex Assigned at Not on file Legal Sex Female 2:23 PM CDT Gender Identity Not on file Sexual Orientation Not on file documented as of this encounter Miscellaneous Notes * Cerner Conversion Note - Historical ProviderMD - 06/27/2018 7:09 PM CDT DATE OF PROCEDURE: 06/27/2018 PREOPERATIVE DIAGNOSIS(ES): 1. 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 2. Morbid obesity. POSTOPERATIVE DIAGNOSIS(ES):Same PROCEDURE: Left Knee extensor apparatus and patellar tendon reconstruction including polypropylene mesh graft and tendon reconstruction. Quadracepsplasty SURGEON: Shay Guerrero MD ASSIST: José Luis Cloud PA-C Note: thios was a complex and prolonged procedure taking close to 3 hours in length DESCRIPTION OF PROCEDURE: The patient was taken to the operating room and after satisfactory general anesthesia, her left knee was prepped with alcohol, then washed w Hibiclens, and then washed once more with a soap solution. It was dried thoroughly and was rinsed and then a standard prep perforemd. After draping the patient's knee, the time-out was performed and the patient's name, the side, the site and the planned procedure were all verified. The leg was elevated and exsanguinated. The tourniquet about the upper thigh was inflated to 350 mmHg. Her previous incision was utilized, making a long anterior incision on the anterior aspect of the knee. This incision was carried down through the subcutaneous tissue to the extensor apparatus. Her patellar tendon was clearly inadequate. It was badly torn and consisted of thin scar tissue with no function. Also the patella was cotracted proximaaly and traction distally could move it minimally. A Quadracepsplasy was felt to be necessaryy. Incision were made on the medial and lateral sides of the Rectus Femoris and a Calderon elevator used to detach scar tissue between the Rectuas and the anterior femur.The patell could then be pulled distally. The polypropylene graft was prepared by taking the sheet of polypropylene, folding it repeatedly, creating a multilayered polypropylene graft approximately 2 cm wide. The polypropylene was sutured and the layers secured in multiple locations using interrupted sutures of #2 MaxBraid. Attention was turned to the knee. Multiple drill holes were made distal to the tibial tubercle at the attachment site of the houlton patellar tendon. The section of bone was removed and the underlying cancellous bone was curetted creating a cavitary space in the bone. The polypropylene mesh was stuffed down and to make sure it could be inserted into this hole. The polypropylene was then removed and the wound irrigated. Methylmethacrylate was then mixed and was injected using a Leonardo syringe into the hole. The polypropylene graft was then stuffed down into the hole and held in place with pressure, after refilling the hole with more cement to completely fill the area in the proximal tibia. This was held in place with constant pressure until the cement had hardened. Further fixation was performed by drilling the cement from anterior to posterior and inserting a 4 mm screw with a large washer over the top of the polymethylmethacrylate. After this hardened, the graft was pulled to make sure that it was securely held tightly within the bone. The patella was then grasped with a metallic clip and pulled distally. This position was held while the polypropylene was sutured to the rectus on both sides then the vastus medialis and theVastus laeralis sutured to the rectus . Multiple interrupted sutures of #5 and #2 MaxBraid were placed in the graft and the houlton tendon to optimize the fixation of the graft and to encourage collagen ingrowth into the polypropylene mesh. The graft was sewn along the medial border of the patella. Once this was secured, the extensor apparatus was quite tight and the patella was brought distally to ia near normal position with the knee in extension. The houlton patellar tendon was sutured as wel, closing the joint, and creating a watertight closure with the polypropylene mesh over the top of the patella and incorporated into the distal tendon. The knee was copiously irrigated with saline then bathed with Betadine. for 5 minutes . The knee was irrigated once more with serile saline. The wound closed in layers. The subcutaneous tissue was closed with multiple interrupted sutures of 0, 2-0 Vicryl followed by 4-0 nylon in the skin using a far-near, near-far technique, then supplemented with mihaela. A sterile dressing was applied followed by application of a fiberglass cast with medial and lateral splints. Patient subsequently was awakened and transferred to the recovery room in satisfactory condition. Shay Guerrero M.D. Dict: 06/27/2018 19:09:05 Trans: 06/28/2018 02:10:58 CC1: Shay Guerrero M.D. Electronically signed by [facility] Conversion Computer Graphic Artist Cerner at 07/24/2022 3:36 PM CDT documented in this encounter Plan of Treatment Not on file documented as of this encounter Visit Diagnoses Not on filedocumented in this encounter Care Teams Jailer Relationship Specialty Start Date End Date Juan José Kendall MD [address] [facility] [address] [place] [address] PCP - General Family Medicine 12/25/22 Juan José Kendall MD [address] [facility] [address] [place] [address] Referring Physician Family Medicine 12/25/22 documented as of this encounter
--- OUTSIDE RECORDS SUMMARY | 2024-03-11 09:25 | XMS_ITS | Encounter Summary ---
Author Organization [facility] Address [address] [place] [address] Care Team Providers Care Fiber Analyst Name Role Phone Juan José Kendall MD Primary Care Provider [phone] Encounter Details Date Type Department Care Team ([facility] st Contact Info) Description 08/17/2022 Telephone Medical Office Building Surgery Spine & Joint [address] [facility], [address] [place] [address] Loly Artis, RN [facility] Social History Tobacco Use Types Packs/Day Years [...] encounter Miscellaneous Notes * Telephone Encounter - Loly Artis, RN - 08/20/2022 2:43 PM EDT Patient updated with providers response and stated understanding. Will return call if she can get transportation to see POD Wednesday. documented in this encounter Plan of Treatment [...] documented as of this encounter Care Teams Fiber Analyst Relationship Specialty Start Date End Date Juan José Kendall MD [address] [place] [address] PCP - General 03/12/21 documented as of this encounter
--- OUTSIDE RECORDS SUMMARY | 2024-03-11 09:25 | XMS_ITS | Encounter Summary ---
Author Organization [facility] Address [address] [place] [address] Care Team Providers Care Foreign Exchange Services Manager Name Role Phone Juan José Kendall MD Primary Care Provider [phone] Encounter Details Date Type Department Care Team (Latest Contact Info) Description 08/25/2022 Travel Social History Tobacco Use Types Packs/Day Years [...] documented as of this encounter Care Teams Foreign Exchange Services Manager Relationship Specialty Start Date End Date Juan José Kendall MD [address] [place] [id number] PCP - General 03/12/21 documented as of this encounter
--- OUTSIDE RECORDS SUMMARY | 2024-03-11 09:25 | XMS_ITS | Encounter Summary ---
Author Organization [facility] Address [address] [place] [address] Care Team Providers Care Cable Stretcher And Tester Name Role Phone Juan José Kendall MD Primary Care Provider +1- [phone] Encounter Details Date Type Department Care Team (Latest Contact Info) Description 07/16/2022 Travel Social History Tobacco Use Types Packs/Day [...] AM EDT documented as of this encounter Plan of [...] documented as of this encounter Care Teams Cable Stretcher And Tester Relationship Specialty Start Date End Date Juan José Kendall MD [address] [place] [address] PCP - General 03/12/21 documented as of this encounter
--- OUTSIDE RECORDS SUMMARY | 2024-03-11 09:25 | XMS_ITS | Encounter Summary ---
Author Organization [employer] Address [address] [place] [address] Care Team Providers Care Building Drafting Officer Name Role Phone Unavailable Primary Care Provider Unavailabl e Encounter Details Date Type Department Care Team (Late st Contact Info) Description 06/23/2018 Historic Encounter [facility] [address] [place] [address] Provider, [facility] Historical Social History Tobacco Use [...] Procedure Name Priority Date/Time Associated Diagnosis Comments URINE CULTURE AND SENSITIVITY Routine 06/23/2018 4:06 PM EDT documented in this encounter Results * URINE CULTURE AND SENSITIVITY (06/23/2018 4:06 PM EDT) Final >100,000 cfu/ml Escherichia coli Pre >100,000 cfu/ml Gram Negative Rods 06/23/2018 4:06 PM EDT 06/23/2018 10:12 PM EDT Narrative [facility] - 06/25/2018 1:53 PM EDT Ordered by Discern Expert [facility] Historical Provider PATHOLOGY/CYTOLOGY DONNA NEW Final Result [facility] [address] [place], [place] [address] [phone] documented in this encounter Visit Diagnoses Not on filedocumented in this encounter
--- OUTSIDE RECORDS SUMMARY | 2024-03-11 09:25 | XMS_ITS | Encounter Summary ---
Author Organization [facility] Address [address] [place] [address] Care Team Providers Care Land Economist Name Role Phone Juan José Kendall MD Primary Care Provider +1- [phone] Encounter Details Date Type Department Care Team (Latest Contact Info) Description 05/23/2022 Travel Social History Tobacco Use Types Packs/Day [...] AM EST documented as of this encounter Plan of [...] documented as of this encounter Care Teams Land Economist Relationship Specialty Start Date End Date Juan José Kendall MD [address] [place] [address] PCP - General 03/12/21 documented as of this encounter
--- OUTSIDE RECORDS SUMMARY | 2024-03-11 09:25 | XMS_ITS | Encounter Summary ---
Author Organization [employer] Address [address] [place] [address] Care Team Providers Care Processing Archivist Name Role Phone Juan José Kendall MD Primary Care Provider + [phone] Juan José Kendall MD Unavailable +[phone] Encounter Details Date Type Department Care Team (Late st Contact Info) Description 06/27/2018 Transcribed Document [facility] [place] Family Medicine [facility] [place] [address] ProviderLaurie MD [address] [place] [address] Social History Tobacco Use Types Packs/Day Years Used Date Smoking Tobacco: Never Assessed Comments Unknown Sex and Gender Information Value Date Recorded Sex Assigned at Not on file Legal Sex Female 2:23 PM CDT Gender Identity Not on file Sexual Orientation Not on file documented as of this encounter Miscellaneous Notes * Cerner Conversion Note - Historical ProviderMD - 06/27/2018 12:39 PM CDT Event Note Entered On: 06/27/2018 12:39 EDT Performed On: 06/27/2018 12:39 EDT by TANMAY BEY, RN Event Note Event Date/Time : 06/27/2018 12:39 EDT Description of Event : pt resting comfortably at bedside TANMAY BEY, RN - 06/27/2018 12:39 EDT Electronically signed by [facility] Conversion Safety And Security Manager Cerner at 07/24/2022 3:41 PM CDT documented in this encounter Plan of Treatment Not on file documented as of this encounter Visit Diagnoses Not on filedocumented in this encounter Care Teams Processing Archivist Relationship Specialty Start Date End Date Juan José Kendall MD [address] [place] [address] PCP - General Family Medicine 12/25/22 Juan José Kendall MD [address] [place] [address] Referring Physician Family Medicine 12/25/22 documented as of this encounter
--- OUTSIDE RECORDS SUMMARY | 2024-03-11 09:25 | XMS_ITS | Encounter Summary ---
Author Organization [employer] Address [address] [place] [address] Care Team Providers Care Office Machine Servicer Name Role Phone Juan José Kendall MD Primary Care Provider +- [phone] Juan José Kendall MD Unavailable [phone] Encounter Details Date Type Department Care Team (Late st Contact Info) Description 06/23/2018 Transcribed Document [facility] Family [facility] [place] [address] ProviderLaurie MD [address] [place] [address] Social History Tobacco Use Types Packs/Day Years Used Date Smoking Tobacco: Never Assessed Comments Unknown Sex and Gender Information Value Date Recorded Sex Assigned at Not on file Legal Sex Female 2:23 PM CDT Gender Identity Not on file Sexual Orientation Not on file documented as of this encounter Miscellaneous Notes * Cerner Conversion Note - Historical ProviderMD - 06/23/2018 3:47 PM CDT PAT Adult Entered On: 06/23/2018 15:51 EDT Performed On: 06/23/2018 15:47 EDT by RASHEL BARRAZA RN Height and Weight, Clinical Dosing Height Source : Stated Height Entry Format : [place] Height, Feet : 5 ft(Converted to: 152 cm, 60 Inch) Height, Inches : 6 Inch(Converted to: 0 ft 6 Inch, 15.24 cm) Clinical Height : 167.64 cm Weight Source : Standing scale Weight Entry Format : [place] Clinical Dosing Weight : 120.45 kg Weight, Pounds : 265 lb Body Surface Area (BSA) : 2.26 m2 Body Mass Index : 42.9 kg/m2 (>HHI) [place] Body Weight : 59 kg RASHEL BARRAZA RN - 06/23/2018 15:47 EDT Health Histories Smoking Status : Never (less than 100 in lifetime; none in last 30 days) Smokeless Tobacco Status : Never RASHEL BARRAZA RN - 06/23/2018 15:47 EDT Social History (As Of: 06/23/2018 15:51:54 EDT) Tobacco: Never (less than 100 in lifetime) Smoking Status. Never Smokeless Tobacco Status. (Last Updated: 06/23/2018 15:46:55 EDT by RASHEL BARRAZA RN) Alcohol: Alcohol Use History No. (Last Updated: 06/23/2018 15:46:55 EDT by RASHEL BARRAZA RN) Substance Abuse: Drug Use Hx: No. (Last Updated: 06/23/2018 15:46:55 EDT by RASEHL BARRAZA RN) Infectious Disease History Infectious Disease History : Chicken pox/Shingles, Influenza, Measles, Mononucleosis, Mumps Fever/Chills Last 48 Hours : No Travel To Regions with Travel Advisories : No Travel Outside [place] Within Last 30 Days : No Contact With Traveler to Advisory Region : No Tuberculosis Symptoms : None RASHEL BARRAZA RN - 06/23/2018 15:47 EDT Anesthesia/Transfusion History Family History of Anesthesia Reaction : No prior transfusion(s) Transfusion History : Prior anesthesia reaction Type of Anesthesia Reaction : Excessive somnolence Family History of Anesthesia Reaction : None RASHEL BARRAZA RN - 06/23/2018 15:47 EDT Functional Assessment Functional ADL Evaluation Index EBN Bathing : Independent (2) Dressing : Independent (2) Toileting : Independent (2) Transferring Bed or Chair : Independent (2) Continence : Independent (2) Feeding : Independent (2) RASHEL BARRAZA RN - 06/23/2018 15:47 EDT ADL Index Score : 12 RASHEL BARRAZA RN - 06/23/2018 15:47 EDT Advance Directive Patient has Advance Directive *Q : Yes, Advance Directive not with the patient Advance Directive Type : Living will Copy Advance Directive Verified/on Chart : No RASHEL BARRAZA RN - 06/23/2018 15:47 EDT Psychosocial History Currently in Unsafe Situation : No Tried to Harm Yourself in the Past? : No Thoughts of Harming/Killing Yourself : No RASHEL BARRAZA RN - 06/23/2018 15:47 EDT Teaching/Learning Assessment Barriers To Learning : None evident Individuals Taught : Patient Readiness to Learn : Cooperative RASHEL BARRAZA RN - 06/23/2018 15:47 EDT Education Topics, Periop Preadmission Perioperative Education Grid Arrival Time/Place : Verbalizes understanding CHG Preoperative Bathing/Cloths : Verbalizes understanding Infection Control : Verbalizes understanding NPO Status/Directions : Verbalizes understanding Preprocedure Preparations : Verbalizes understanding Preprocedure Tests/Labs : Verbalizes understanding Remove Body Piercings : Verbalizes understanding Responsible Adult : Verbalizes understanding Take/Hold Medications Pre-Procedure : Verbalizes understanding ARSHEL BARRAZA RN - 06/23/2018 15:47 EDT General Info Want Family/Rep/Phys Notified of Admit : No Emergency Contact #1 : Mauricio Emergency Contact #1 Emergency Contact #1 Relationship : spouse Emergency Contact #2 : - Emergency Contact #2 Phone Number : - Emergency Contact #2 Relationship : - Primary Language : Dominican Preferred Communication Mode : Verbal Communication Barrier : None RASHEL BARRAZA RN - 06/23/2018 15:47 EDT Cain Scale Cain Sensory Perception : No impairment Cain Moisture : Rarely moist Cain Activity : Walks occasionally Cain Mobility : No limitation Cain Nutrition : Adequate Cain Friction and Shear : No apparent problem Cain Score : 21 RASHEL BARRAZA RN - 06/23/2018 15:47 EDT Sleep Apnea Risk Assmt BiPAP/CPAP Ordered for Home Use : Yes Hx of Obstructive Sleep Apnea Diagnosis : Yes BiPAP/CPAP Used at Home : No Reason BiPAP/CPAP Not Used at Home : patient took it back Age over 50 Years Old : Yes Gender Male : No RASHEL BARRAZA RN - 06/23/2018 15:47 EDT documented in this encounter Plan of Treatment Not on file documented as of this encounter Visit Diagnoses Not on filedocumented in this encounter Care Teams Office Machine Servicer Relationship Specialty Start Date End Date Juan José Kendall MD [address] [place] [facility] [address] [place] [address] PCP - General Family Medicine 12/25/22 Juan José Kendall MD [address] [place] [facility] [address] [place] [address] Referring Physician Family Medicine 12/25/22 documented as of this encounter
--- OUTSIDE RECORDS SUMMARY | 2024-03-11 09:25 | XMS_ITS | Encounter Summary ---
Author Organization [employer] Address [address] [facility] [place] [address] Care Team Providers Care Custodial Services Manager Name Role Phone Romulo Kendall MD Primary Care Provider + [phone] Romulo Kendall MD Unavailable [phone] Encounter Details Date Type Department Care Team (Late st Contact Info) Description 06/23/2018 Transcribed Document [facility] [place] Family Medicine [facility] [place] [address] ProviderLaurie MD [address] [place] [address] Social History Tobacco Use Types Packs/Day Years Used Date Smoking Tobacco: Never Assessed Comments Unknown Sex and Gender Information Value Date Recorded Sex Assigned at Not on file Legal Sex Female 2:23 PM CDT Gender Identity Not on file Sexual Orientation Not on file documented as of this encounter Miscellaneous Notes * [employer]ner Conversion Note - Laurie ProviderMD - 06/23/2018 3:06 PM CDT Patient: TURDI BLAIR Age: 62 Years Sex: Female : 1955 Chief Complaint Left Knee Pain Primary Care Provider ROMULO KENDALL MD History of Present Illness This patient is a pleasant 62 yo WF who presents with left knee pain. The pain has been going on for many years but has gotten progressively worse. She has a h/o Left Total Knee Arthroplasty performed by Dr Guerrero in Feb 2018. Since that time, she has had a Patella Tendon Repair and continues to have pain. She saw Dr Guerrero who evaluated her and she was offered a Left Patella Tendon Repair and agreed to the procedure. Pt denies a h/o DVT/PE. She has been difficult to wake with anesthesia in the past. Pt has a h/o NUVIA but refuses CPAP. No asthma or COPD. Review of Systems Constitutional: Neg for fevers or chills. Eyes: Neg for blurry vision or change in vision. ENT: Neg for sore throat, ear pain, or dizziness. Cardiac: Neg for chest pain or dyspnea on exertion. Respiratory: Neg for shortness of breath. Gastrointestinal: Neg for nausea, vomiting, diarrhea, or constipation. Musculoskeletal: Pos for left knee pain. Neurologic: Neg for headaches or seizures. Psychiatric: Neg for anxiety and depression. Integumentary: Neg for rash. Vital Signs No qualifying data available Oxygen Settings (Last) No qualifying data available. Physical Exam Constitutional: This is a pleasant 62 yo WF in no acute distress. HEENT: Normocephalic, atraumatic. PEERLA. Extraocular muscles intact. Conjunctiva pink without exudate. Oropharynx pink and moist. Neck supple. No JVD. Cardiac: SI, S2. RRR. No M/R/G. Respiratory: Lungs CTA bilaterally. No wheezes, rales, or rhonchi. Abdomen: Soft, nontender, nondistended. Active bowel sounds. No visible masses. Musculoskeletal: Bilateral LE without clubbing, cyanosis or edema. Integumentary: Skin is pink, warm and dry. No rashes. Neurologic: CN II-XII grossly intact. Psychiatric: Judgment and affect appropriate. Assessment/Plan 1. Preoperative Evaluation- Left Knee Pain: Proceed with surgery as scheduled with Dr Guerrero on 06/27/2018. Pt underwent preoperative laboratory workup and diagnostic studies. 2. NUVIA- Pt refuses CPAP. 3. Hypertension- Continue Metoprolol. 4. Hyperlipidemia- Continue Simvastatin. 5. GERD- Continue Omeprazole. Problem List/Past Medical History Ongoing Arthritis Back pain GERD (gastroesophageal reflux disease) High cholesterol History of obstructive sleep apnea HTN (hypertension) Stress incontinence Procedure/Surgical History SAURABH PLANTAR FASCITIS SX, HYSTERECTOMY, left patellar tendon repair, Left total knee replacement, LUMBAR FUSION, R TKR, right knee patellar tendon repair. Home Medications (13) Active baclofen 10 mg oral tablet 10 mg = 1 Tab, Oral, Daily gabapentin 300 mg oral capsule 300 mg = 1 Cap, Oral, HS metoclopramide 10 mg oral tablet 10 mg = 1 Tab, Oral, BID AC Metoprolol Tartrate 50 mg, BID morphine 30 mg/12 hr oral tablet, extended [...] 25 mg = 1 Cap, Oral, BID Celebrex 200mg po daily Oxybutynin 5mg po daily Allergies Biaxin (Acid reflux) Social History Alcohol Alcohol Use History No. Substance Abuse Drug Use Hx: No. Tobacco Never (less than 100 in lifetime) Smoking Status. Never Smokeless Tobacco Status. Family History Pt mother in her 80s from Lung Cancer. Pt father in his 50s from a [place]. Diagnostic Results EKG- Sinus Manish, 50 CXR- NAD Lab Results UA- neg nitrites, small LE; urine culture pending. CBC Results (Current Encounter/Past 24 Hours) WBC 6.3 K/uL 06/23/2018 16:55 Hct 40.9 % 06/23/2018 16:55 Hgb 13.1 Gram/dL 06/23/2018 16:55 Platelet Count 208 K/uL 06/23/2018 16:55 CMP Results (Current Encounter/Past 24 Hours) Protein Total 6.6 Gram/dL 06/23/2018 16:42 eGFR >60 mL/min/1.73m2 06/23/2018 16:42 Globulin 3.2 Gram/dL 06/23/2018 16:42 A/G Ratio 1.1 06/23/2018 16:42 Creatinine Level 0.80 mg/dL 06/23/2018 16:42 Bun/Creatinine 17.5 06/23/2018 16:42 eGFR NonAfrican >60 mL/min/1.73m2 06/23/2018 16:42 Sodium Level 142 mmol/L 06/23/2018 16:42 Potassium Level 3.9 mmol/L 06/23/2018 16:42 Chloride Level 109 mmol/L 06/23/2018 16:42 Carbon Dioxide Level 25 mmol/L 06/23/2018 16:42 Anion Gap 12 06/23/2018 16:42 Alk Phos 95 Units/Liter 06/23/2018 16:42 ALT 13 Units/Liter 06/23/2018 16:42 AST 21 Units/Liter 06/23/2018 16:42 Blood Urea Nitrogen 14 mg/dL 06/23/2018 16:42 Glucose Level 90 mg/dL 06/23/2018 16:42 Albumin Level 3.4 Gram/dL 06/23/2018 16:42 Bilirubin Total 0.7 mg/dL 06/23/2018 16:42 Calcium Level 8.7 mg/dL 06/23/2018 16:42 Coagulation Results (Current Encounter/Past 24 Hours) PT 10.7 Second(s) 06/23/2018 17:19 PTT 29.0 Second(s) 06/23/2018 17:19 INR 1.0 06/23/2018 17:19 documented in this encounter Plan of Treatment Not on file documented as of this encounter Visit Diagnoses Not on filedocumented in this encounter Care Teams Custodial Services Manager Relationship Specialty Start Date End Date Romulo Kendall MD [address] [place] [facility] [address] [place] [address] PCP - General Family Medicine 12/25/22 Romulo Kendall MD [address] [place] [facility] [address] [place] [address] Referring Physician Family Medicine 12/25/22 documented as of this encounter
--- OUTSIDE RECORDS SUMMARY | 2024-03-11 09:25 | XMS_ITS | Encounter Summary ---
Author Organization [facility] Address [address] [place] [address] Care Team Providers Care Sales Consulting Director Name Role Phone Juan José Kendall MD Primary Care Provider +1- [phone] Encounter Details Date Type Department Care Team (Late st Contact Info) Description 07/10/2022 Telephone [facility] [address] [place] [address] Irma Reynoso MD [address] [place] [address] Social History Tobacco Use Types [...] Telephone Encounter - Silvia Simmons - 07/10/2022 12:43 PM EDT Please see previous note. This has been resolved. Nothing further at this time. * Telephone Encounter - Ara Cardenas - 07/10/2022 11:41 AM EDT Patient Phone Message Reason for Call: Patient asking about her TH appt that was on 07/02-says she never received a call. Best contact number and optimal time of day to reach caller: [phone] Note: Please do not reply to this message. Follow-up communication and further actions as a result of this message need to be communicated with the patient directly, if the patient is not active onMyChart. If the patient is active on MyChart, they will receive notification of the communication/outcome via [employer]i. documented in this encounter Plan of Treatment [...] documented as of this encounter Care Teams Sales Consulting Director Relationship Specialty Start Date End Date Juan José Kendall MD [address] [place] [address] PCP - General 03/12/21 documented as of this encounter
--- OUTSIDE RECORDS SUMMARY | 2024-03-11 09:25 | XMS_ITS | Encounter Summary ---
Author Organization [employer] Address [address] [place] [address] Care Team Providers Care Online Communications Manager Name Role Phone Juan José Kendall MD Primary Care Provider +- [phone] Juan José Kendall MD Unavailable [phone] Encounter Details Date Type Department Care Team (Late st Contact Info) Description 06/27/2018 Transcribed Document [facility] [place] [facility] [place] [address] ProviderLaurie MD [address] [place], [place] [address] Social History Tobacco Use Types Packs/Day Years Used Date Smoking Tobacco: Never Assessed Comments Unknown Sex and Gender Information Value Date Recorded Sex Assigned at Not on file Legal Sex Female 2:23 PM CDT Gender Identity Not on file Sexual Orientation Not on file documented as of this encounter Miscellaneous Notes * Cerner Conversion Note - Laurie ProviderMD - 06/27/2018 3:45 PM CDT [facility] Main [facility] PreOp Summary Primary Physician: JONG SANTACRUZ MD-AZIZAT Finalized Date/Time: 06/27/18 16:21:55 Pt. Name: BAIRON TRUDIRA Morgan Armas.B./Sex: 1955 Female Med Rec #: [id number] Physician: JONG SANTACRUZ MD-ALLEGRA Financial #: [id number] Pt. Type: O Room/Bed: Admit/Disch: 06/27/18 03:45:00 - Institution: [facility] PreOp Case Times Entry 1 In Preop 06/27/18 11:35:00 Ready for Holding n/a Room Patient Ready for 06/27/18 12:34:00 Surgery Patient Out of Preop 06/27/18 15:07:00 Patient Out of n/a Holding Room Last Modified By: TANMAY BEY RN 06/27/18 16:21:50 Deja PreOp Case Times Audit 06/27/18 16:21:50 [employer] Forces Warrant Officer: [email or web address] Modifier: [email or web address] <+> 1 Patient Out of Preop 06/27/18 12:39:46 [employer] Forces Warrant Officer: FLOYDSF Modifier: [email or web address] <+> 1 Patient Ready for Surgery Finalized By: TANMAY BEY, RN Document Signatures Signed By: TANMAY BEY RN 06/27/18 16:21 Electronically signed by [facility] Conversion Filtering Machine Tender Helper Cerner at 07/24/2022 3:53 PM CDT documented in this encounter Plan of Treatment Not on file documented as of this encounter Visit Diagnoses Not on filedocumented in this encounter Care Teams Online Communications Manager Relationship Specialty Start Date End Date Juan José Kendall MD [address] [place] [facility] [address] [place] [address] PCP - General Family Medicine 12/25/22 Juan José Kendall MD [address] [place] [facility] [address] [place] [address] Referring Physician Family Medicine 12/25/22 documented as of this encounter
--- OUTSIDE RECORDS SUMMARY | 2024-03-11 09:26 | XMS_ITS | Encounter Summary ---
Author Organization [facility] Address [address] [place] [address] Care Team Providers Care Gear Shaver Set Up Operator Name Role Phone Juan José Kendall MD Primary Care Provider +1- [phone] Encounter Details Date Type Department Care Team ([facility] st Contact Info) Description 07/01/2021 Orders Only Medical Office Building Surgery Spine & Joint [address] [facility], [address] [place] [address] Lesli Mccabe APRN [address] [place] [address] Social History Tobacco Use Types Packs/Day Years Used Date Smoking Tobacco: Never Smokeless Tobacco: Never Alcohol Use Standard Drinks/Week Comments Never 0 (1 standard drink = 0.6 oz pur e alcohol) Comments Unknown Sex and Gender Information Value Date Recorded Sex Assigned at Female 05/22/2022 10:56 AM EST Legal Sex Female 5:59 PM EDT Gender Identity Female 05/22/2022 10:56 AM EST Sexual Orientation Not on file documented as of this encounter Miscellaneous Notes * Progress Notes - Lesli Mccabe APRN - 07/01/2021 10:01 AM EDT Gabapentin refill. She is now more than 3 months postop so she will need to wean off or get future refills from her pcp. documented in this encounter Plan of Treatment [...] documented as of this encounter Care Teams Gear Shaver Set Up Operator Relationship Specialty Start Date End Date Juan José Kendall MD [address] [place] [address] PCP - General 03/12/21 documented as of this encounter
--- OUTSIDE RECORDS SUMMARY | 2024-03-11 09:26 | XMS_ITS | Encounter Summary ---
Author Organization [facility] Address [address] [place] [address] Care Team Providers Care Heel Edge Inker Machine Name Role Phone Juan José Kendall MD Primary Care Provider +1- [phone] Encounter Details Date Type Department Care Team ([facility] st Contact Info) Description 06/30/2021 Telephone Medical Office Building Surgery Spine & Joint [address] [facility] [place] [address] Loly Artis, RN [facility] Social History Tobacco [...] Notes * Telephone Encounter - Loly Artis, LISBETH - 07/01/2021 11:50 AM EDT Patient notified, stated understanding. * Telephone Encounter - Lesli Mccabe APRN - 07/01/2021 10:04 AM EDT Escribed, she will need to either wean off or get refills from pcp. Thanks! documented in this encounter Plan of Treatment [...] documented as of this encounter Care Teams Heel Edge Inker Machine Relationship Specialty Start Date End Date Juan José Kendall MD [address] [place] [address] PCP - General 03/12/21 documented as of this encounter
--- OUTSIDE RECORDS SUMMARY | 2024-03-11 09:26 | XMS_ITS | Encounter Summary ---
Author Organization [facility] Address [address] [place] [address] Care Team Providers Care Supervisor Extruding Department Name Role Phone Blu Birmingham MD Primary Care Provider Reason for Visit * Reason Onset Date Comments HCN - Patient Message 02/25/2021 Encounter Details Date Type Department Care Team ([facility] st Contact Info) Description 02/25/2021 Telephone PFE SCHEDULING [address] [place] [address] Edi Robles MD [address] [facility] [address] [place] [address] HCN - Patient Message Social History Tobacco Use Types Packs/Day Years [...] Exposure Response Date Recorded In the last month, have you been in contact with someone who was confirmed or suspected to have Coronavirus / COVID-19? No / Unsure 02/25/2021 2:22 PM EST documented as of this encounter Miscellaneous Notes * Telephone Encounter - Loly Artis RN - 03/03/2021 11:18 AM EST Attempted to call Martha with [employer] left regarding instructions * Telephone Encounter - Lesli Mccabe APRN - 03/03/2021 8:29 AM EST Wet to dry dressing changes daily. We didn't order wound vac but we did place an order for wound care consult. Thanks! * Telephone Encounter - Chiquis Pringle RN - 02/26/2021 8:39 AM EST Attempted to call. Message left to return call to myself or Loly. * Telephone Encounter - Mandy Velasco - 02/25/2021 4:23 PM EST I gave Martha with [employer] the message that patient is to do wet to dry dressing changes and that there has been an order put in for a wound vac. She would like a call back from Loly or Chiquis for other questions * Telephone Encounter - Loly Artis RN - 02/25/2021 4:14 PM EST Attempted to call, VM left to call direct line * Telephone Encounter - Torey Castellano - 02/25/2021 4:05 PM EST Patient Phone Message Reason for Call: Martha with [employer] is asking to speak with a nurse about patients surgery site and wound acre instructions Best contact number and optimal time of day to reach caller: [phone] Note: Please do not reply to this message. Follow-up communication and further actions as a result of this message need to be communicated with the patient directly, if the patient is not active onMyChart. If the patient is active on MyChart, they will receive notification of the communication/outcome via [employer]. documented in this encounter Plan of Treatment Not on file documented as of this encounter Visit Diagnoses Not on filedocumented in this encounter Additional Health Concerns Infection Onset Date Last Indicated Resolved Time MRSA Comment:MRSA (methicillin resistant Staphylococcus aureus) 04/17/2020 05/21/2022 Assessment Noted Time A fall risk assessment has been complete d for the patient 02/25/2021 2:34 PM EST documented as of this encounter Care Teams Supervisor Extruding Department Relationship Specialty Start Date End Date Blu Birmingham MD [address] [place] [address] PCP - General 08/16/20 03/11/21 documented as of this encounter
--- OUTSIDE RECORDS SUMMARY | 2024-03-11 09:26 | XMS_ITS | Encounter Summary ---
Author Organization [facility] Address [address] [place] [address] Care Team Providers Care Devil Tender Name Role Phone Juan José Kendall MD Primary Care Provider +1- [phone] Encounter Details Date Type Department Care Team (Latest Contact Info) Description 04/23/2021 Travel Social History Tobacco Use Types Packs/Day [...] have Coronavirus / COVID-19? No / Unsure 04/23/2021 12:59 PM EST documented as of this encounter Plan [...] documented as of this encounter Care Teams Devil Tender Relationship Specialty Start Date End Date Juan José Kendall MD [address] [place] [address] PCP - General 03/12/21 documented as of this encounter
--- OUTSIDE RECORDS SUMMARY | 2024-03-11 09:26 | XMS_ITS | Encounter Summary ---
Author Organization [facility] Address [address] [place] [address] Care Team Providers Care Ssrs Report Developer Name Role Phone Juan José Kendall MD Primary Care Provider +1- [phone] Reason for Referral * Other Medical (Routine) - Closed Specialty Diagnoses / Procedures Referred By Contac t Referred To Contact Diagnoses Non-healing surgical wound, initial encounter Non-healing wound of amputation stump (CMS/HCC) Procedures Debridement Daniella Larose APRN [address] [address] Phone: tel: fax: [facility] [address] [place] [phone] Referral ID Status Reason Start Date Expiration Date Visits Re quested Visits Authorized [id number] Closed 03/12/2021 09/11/2022 1 1 Reason for Visit * Reason Comments Skin Ulcer * Other Medical (Routine) - Closed Specialty Diagnoses / Procedures Referred By Contac t Referred To Contact Diagnoses Non-healing surgical wound, initial encounter Non-healing wound of amputation stump (CMS/HCC) Procedures Debridement Daniella Larose APRN [address] [address] Phone: tel: fax: [facility] [address] [place] [phone] Referral ID Status Reason Start Date Expiration Date Visits Re quested Visits Authorized [id number] Closed 03/12/2021 09/11/2022 1 1 Encounter Details Date Type Department Care Team (Late st Contact Info) Description 03/12/2021 2:15 PM EST Office Visit [facility] [address], [address] [place] [address] Daniella Larose APRN [address] [place] [address] Non-healing surgical wound, initial encounter (Primary Dx); Non-healing wound of amputation stump (CMS/HCC) Social History Tobacco Use Types Packs/Day Years [...] have Coronavirus / COVID-19? No / Unsure 03/12/2021 2:06 PM EST documented as of this encounter Last Filed Vital Signs Vital Sign Reading Time Taken Comments Blood Pressure 124/85 03/12/2021 2:20 PM EST Pulse 82 03/12/2021 2:20 PM EST Temperature 36.7 ??C (98.1 ??F) 03/12/2021 2:20 PM ES T Respiratory Rate 18 03/12/2021 2:20 PM EST Oxygen Saturation - - Inhaled Oxygen Concentration - - Weight - - Height - - Body Mass Index - - documented in this encounter Miscellaneous Notes * Patient Instructions - Celia Peguero RN - 03/12/2021 2:15 PM EST [facility] Physician Orders/Patient Instructions Should you notice a significant change in your wound(s) (such as increased drainage, foul odor, or pain) or have questions or problems following these instructions, please contact us at or call your primary care physician or the hospital emergency rooms. Wound Care/Dressing: Wound location: right amputation site Cleanse Wound With: Normal Saline Apply: Gauze moistened with normal saline Cover With: ABD pad Secure With: Andrea Domingo and Tape Dressing Changes: Daily Compression Dressing Compression Dressing: Other: right Jay wrap Compression Frequency Daily Will place an order for a wound vac. This process can take a week or so. Orders after you obtain your wound vac: NPWT: Apply drape to periwound. Insert black foam inside wound bed. Place additional drape over black foam. May bridge to offload if necessary. May apply non-sting barrier prep spray to skin prior to dressing change. Change Three times weekly. Suction 125 mmHg, continuous. Change canister as needed but at least once weekly. * Progress Notes - Daniella Larose APRN - 03/12/2021 2:15 PM ESTAssociated Order(s): Debridement Post-Procedure Diagnose(s): Non-healing surgical wound, initial encounter; Non- healing wound of amputation stump (CMS/HCC) Subjective Trudi Blair is a 65 y.o. 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 Current wound care regimen is wet to dry. PMH significant for HTN and GERD. Denies recent fevers, chills, or other s/s of infection. Denies drug, tobacco, or ETOH use. Review of Systems Skin: Positive for wound. All other systems reviewed and are negative. Objective Physical Exam Vitals and nursing note reviewed. Constitutional: Appearance: Normal appearance. Cardiovascular: Rate and Rhythm: Normal rate. Pulmonary: Effort: Pulmonary effort is normal. Musculoskeletal: General: Normal range of motion. Skin: General: Skin is warm and dry. Comments: Open area on right lateral AKA stump. [place] wound bed. Some eschar noted. Moderate serosanguineous drainage with no odor. Periwound intact with no erythema, warmth, or induration. No palpable bone. Neurological: Mental Status: She is alert and oriented to person, place, and time. Psychiatric: Behavior: Behavior normal. Debridement Consent obtained? written Consent given by: patient Risks discussed? procedural risks discussed Time out called at 03/12/2021 2:45 PM Immediately prior to the procedure a time out was called Performed by: MOSHGIACH Debridement type: surgical Level of debridement: subcutaneous tissue Pain control: lidocaine 4% Pre-debridement measurements Length (cm): 6.5 Width (cm): 2.5 Depth (cm): 2.5 Surface Area (cm^2): 16.25 Volume (cm^3): 40.63 Post-debridement measurements Length (cm): 6.5 Width (cm): 2.5 Depth (cm): 2.5 Percent debrided: 100% Surface Area (cm^2): 16.25 Area debrided (cm^2): 16.25 Volume (cm^3): 40.63 Tissue and other material debrided: subcutaneous tissue Devitalized tissue debrided: necrotic debris and slough Instrument(s) utilized: forceps, blade and curette Bleeding: small Hemostasis obtained with: pressure Procedural pain (0-10): 0 Post-procedural pain: 0 Response to treatment: procedure was tolerated well Assessment/Plan Assessment / Plan: Problem List Items Addressed This Visit None Visit Diagnoses Non-healing surgical wound, initial encounter - Primary Non-healing wound of amputation stump (CMS/HCC) Recommend NPWT @ 125 mmHg suction, change three times weekly. Home health may assist with changes. May continue wet to dry using normal saline until NPWT is initiated. Counseled on signs and symptoms of infection. Advised to contact us or present to the closest emergency department with any concerns. documented in this encounter Plan of Treatment Not on file documented as of this encounter Procedures Procedure Name Priority Date/Time Associated Diagnosis Comments DE DEBRIDEMENT, SKIN, SUB-Q TISSUE,=<20 SQ CM Routine 03/12/2021 2:15 PM EST Non-healing surgical wound, initial encounter Non-healing wound of amputation stump (CMS/HCC) documented in this encounter Results * DE DEBRIDEMENT, SKIN, SUB-Q TISSUE,=<20 SQ CM (03/12/2021 2:15 PM EST) Anatomical Region Laterality Modality Other Narrative 03/12/2021 2:15 PM EST Daniella Larose APRN ? 03/12/2021 ??3:29 PM Debridement Consent obtained? written Consent given by: patient Risks discussed? procedural risks discussed Time out called at 03/12/2021 2:45 PM Immediately prior to the procedure a time out was called Performed by: MOSHGIACH Debridement type: surgical Level of debridement: subcutaneous tissue Pain control: lidocaine 4% Pre-debridement measurements Length (cm): 6.5 Width (cm): 2.5 Depth (cm): 2.5 Surface Area (cm^2): 16.25 Volume (cm^3): 40.63 Post-debridement measurements Length (cm): 6.5 Width (cm): 2.5 Depth (cm): 2.5 Percent debrided: 100% Surface Area (cm^2): 16.25 Area debrided (cm^2): 16.25 Volume (cm^3): 40.63 Tissue and other material debrided: subcutaneous tissue Devitalized tissue debrided: necrotic debris and slough Instrument(s) utilized: forceps, blade and curette Bleeding: small Hemostasis obtained with: pressure Procedural pain (0-10): 0 Post-procedural pain: 0 Response to treatment: procedure was tolerated well Daniella Larose APRN IN CLINIC/BEDSIDE ORDERABL ES Final Result documented in this encounter Visit Diagnoses Diagnosis Non-healing surgical wound, initial encounter- Primary Non-healing wound of amputation stump (CMS/HCC) documented in this encounter Additional Health Concerns Infection Onset Date Last Indicated Resolved Time MRSA Comment:MRSA (methicillin resistant Staphylococcus aureus) 04/17/2020 05/21/2022 Assessment Noted Time A fall risk assessment has been complete d for the patient 03/12/2021 2:20 PM EST documented as of this encounter Care Teams Ssrs Report Developer Relationship Specialty Start Date End Date Juan José Kendall MD [address] [place] [id number] PCP - General 03/12/21 documented as of this encounter
--- OUTSIDE RECORDS SUMMARY | 2024-03-11 09:26 | XMS_ITS | Encounter Summary ---
Author Organization [facility] Address [address] [place] [address] Care Team Providers Care S Iron Worker Name Role Phone Juan José Kendall MD Primary Care Provider +1- [phone] Encounter Details Date Type Department Care Team ([facility] st Contact Info) Description 04/29/2021 Orders Only Medical Office Building Surgery Sp[facility] [address] [facility], [address] [place] [address] Lesli Mccabe STAGE PRODUCER [address] [place] [address] Social History Tobacco Use Types [...] Progress Notes - Lesli Mccabe APRN - 04/29/2021 8:04 AM EST Gabapentin refill documented in this encounter Plan of Treatment [...] documented as of this encounter Care Teams S Iron Worker Relationship Specialty Start Date End Date Juan José Kendall MD [address] [place] [address] PCP - General 03/12/21 documented as of this encounter
--- OUTSIDE RECORDS SUMMARY | 2024-03-11 09:26 | XMS_ITS | Encounter Summary ---
Author Organization [facility] Address [address] [place] [address] Care Team Providers Care Certified Ophthalmic Surgical Assistant Name Role Phone Blu Birmingham MD Primary Care Provider [phone] Encounter Details Date Type Department Care Team ([facility] st Contact Info) Description 03/03/2021 Telephone Medical Office Building Surgery Spine & Joint [address] [facility], [address] [place] [address] Chiquis Pringle, METAL FINISH INSPECTOR & ACUTE CARE SURG [facility] ICU T2 Social History Tobacco Use Types Packs/Day Years [...] encounter Miscellaneous Notes * Telephone Encounter - Chiquis Pringle, RN - 03/11/2021 9:29 AM EST Faxed documented in this encounter Plan of Treatment [...] documented as of this encounter Care Teams Certified Ophthalmic Surgical Assistant Relationship Specialty Start Date End Date Blu Birmingham MD [address] [place] [id number] PCP - General 08/16/20 03/11/21 documented as of this encounter
--- OUTSIDE RECORDS SUMMARY | 2024-03-11 09:26 | XMS_ITS | Encounter Summary ---
Author Organization [facility] Address [address] [place] [address] Care Team Providers Care Rubber Compounder Name Role Phone Juan José Kendall MD Primary Care Provider [phone]- [phone] Encounter Details Date Type Department Care Team (Latest Contact Info) Description 05/20/2022 11:12 PM EST - 05/20/2022 11:59 PM EST Hospital Encounter [facility] [address] [place] [id number] Examination Discharge Disposition: Home or Self Care Social [...] AM EST documented as of this encounter Medications at Time of Discharge atorvastatin (Lipitor) 20 MG tablet Take 20 mg by mouth every night. 11/18/2019 brompheniramine- pseudoephedrine- DM 30-2-10 MG/5ML syrup Take 5 mL by [...] 50 mg by mouth every night. 11/18/2019 acetaminophen (Tylenol Extra Strength) 500 MG tablet Take 2 tablets (1,000 mg total) by mouth 3 (three) times a day. 100 tablet 01/24/2021 3 aspirin 81 MG EC tablet Take 1 tablet (81 mg total) by mouth 2 (two) times a day. For 4 weeks post-op for blood clot prevention 56 tablet 01/24/2021 3 gabapentin (Neurontin) 300 MG capsule Take 1 capsule (300 mg total) by mouth 3 (three) times a day. 90 capsule 07/01/2021 3 hyoscyamine (Anaspaz,Levsin) 0.125 MG tablet Take 0.125 mg by mouth 2 (two) times a day. 3 metoclopramide (Reglan) 10 MG tablet Take 10 mg by mouth 2 (two) times a day. 05/22/2018 3 potassium chloride CR (Klor-Con M10) 10 MEQ ER tablet Take 10 mEq by mouth 2 (two) times a day. Do not crush or chew. 3 potassium chloride ER (Micro-K) 10 MEQ ER capsule Take 10 mEq by mouth 2 (two) times a day. 01/11/2020 3 promethazine (Phenergan) 25 MG tablet Take 25 mg by mouth every 6 (six) hours if needed for nausea or vomiting. 3 traMADol (Ultram) 50 MG tablet Take 1 tablet (50 mg total) by mouth every 4 (four) hours if needed for severe pain. 60 tablet 01/24/2021 3 documented as of this encounter Plan of Treatment Not on file documented as of this encounter Procedures Procedure Name Priority Date/Time Associated Diagnosis Comments MR ABDOMEN WO IV CONTRAST Routine 05/20/2022 11:12 PM EST Examination documented in this encounter Results * MR Abdomen wo IV Contrast (05/20/2022 11:12 PM EST) Narrative IMAGING - 05/20/2022 11:12 PM EST This study was performed at an outside facility and has been loaded into the PACS system for reference only. ??This order has been auto-finalized and does not contain a result. Procedure Note Josiah Angela D - 05/20/2022 This study was performed at an outside facility and has been loaded intothe PACS system for reference only. This order has been auto-finalizedand does not contain a result. us Imaging Upload Radiant IMG MRI PROCEDURES Final Result IMAGING documented in this encounter Visit Diagnoses Diagnosis Examination Unspecified examination documented in this encounter Additional Health Concerns Infection Onset Date Last Indicated Resolved Time MRSA Comment:MRSA (methicillin resistant Staphylococcus aureus) 04/17/2020 05/21/2022 Assessment Noted Time A fall risk assessment has been complete d for the patient 04/23/2021 1:07 PM EST documented as of this encounter Care Teams Rubber Compounder Relationship Specialty Start Date End Date Juan José Kendall MD [address] [place] [id number] PCP - General 03/12/21 documented as of this encounter
--- OUTSIDE RECORDS SUMMARY | 2024-03-11 09:26 | XMS_ITS | Encounter Summary ---
Author Organization [facility] Address [address] [place] [address] Care Team Providers Care Executive Sous Chef Name Role Phone Juan José Kendall MD Primary Care Provider [phone]- [phone] Reason for Visit * Reason Onset Date Comments HCN - Patient Message 04/01/2021 Encounter Details Date Type Department Care Team ([facility] st Contact Info) Description 04/01/2021 Telephone Medical Office Building Surgery Spine & Joint [address], [address] [place] [address] Edi Robles MD [address] [place] [address] HCN - Patient Message Social [...] have Coronavirus / COVID-19? No / Unsure 03/26/2021 1:00 PM EST documented as of this encounter Miscellaneous Notes * Telephone Encounter - Loly Artis RN - 04/01/2021 9:46 AM EST Spoke to Nora at [facility], location of wound and ICD codes provided. * Telephone Encounter - Patrick Patel - 04/01/2021 9:06 AM EST Patient Phone Message Reason for Call: Call from [facility]. Patient of Dr. Robles. Requesting to speak with nurse or medical coordinator pesticide use regarding patient's wound. Best contact number and optimal time of day to reach caller: [phone] Note: Please do not reply to this message. Follow-up communication and further actions as a result of this message need to be communicated with the patient directly, if the patient is not active onMyChart. If the patient is active on MyChart, they will receive notification of the communication/outcome via [employer]. documented in this encounter Plan of Treatment Not on file documented as of this encounter Visit Diagnoses Not on filedocumented in this encounter Additional Health Concerns Infection Onset Date Last Indicated Resolved Time MRSA Comment:MRSA (methicillin resistant Staphylococcus aureus) 04/17/2020 05/21/2022 Assessment Noted Time A fall risk assessment has been complete d for the patient 03/26/2021 1:18 PM EST documented as of this encounter Care Teams Executive Sous Chef Relationship Specialty Start Date End Date Juan José Kendall MD [address] [place] [address] PCP - General 03/12/21 documented as of this encounter
--- OUTSIDE RECORDS SUMMARY | 2024-03-11 09:26 | XMS_ITS | Encounter Summary ---
Author Organization [facility] Address [address] [place] [address] Care Team Providers Care Audioprosthologist Name Role Phone Juan José Kendall MD Primary Care Provider +1- [phone] Encounter Details Date Type Department Care Team (Latest Contact Info) Description 03/12/2021 Travel Social History Tobacco Use Types Packs/Day [...] documented as of this encounter Care Teams Audioprosthologist Relationship Specialty Start Date End Date Juan José Kendall MD [address] [place] [address] PCP - General 03/12/21 documented as of this encounter
--- OUTSIDE RECORDS SUMMARY | 2024-03-11 09:26 | XMS_ITS | Encounter Summary ---
Author Organization [facility] Address [address] [place] [address] Care Team Providers Care Insurance Agency Owner Name Role Phone Juan José Kendall MD Primary Care Provider +1- [phone] Encounter Details Date Type Department Care Team (Latest Contact Info) Description 03/26/2021 Travel Social History Tobacco Use Types Packs/Day [...] documented as of this encounter Care Teams Insurance Agency Owner Relationship Specialty Start Date End Date Juan José Kendall MD [address] [place] [address] PCP - General 03/12/21 documented as of this encounter
--- OUTSIDE RECORDS SUMMARY | 2024-03-11 09:26 | XMS_ITS | Encounter Summary ---
Author Organization [facility] Address [address] [place] [address] Care Team Providers Care Manager Meat Name Role Phone Juan José Kendall MD Primary Care Provider [phone]- [phone] Reason for Visit * Reason Comments Skin Ulcer Encounter Details Date Type Department Care Team ([facility] st Contact Info) Description 04/23/2021 1:00 PM EST Office Visit [facility] [address], [address] [place] [address] Daniella Larose, HAZ TECH [address] [place] [address] Non-healing surgical wound, subsequent encounter (Primary Dx) Social History Tobacco Use Types [...] Sign Reading Time Taken Comments Blood Pressure 108/77 04/23/2021 1:07 PM EST Pulse 78 04/23/2021 1:07 PM EST Temperature 36.7 ??C (98.1 ??F) 04/23/2021 1:07 PM ES T Respiratory Rate 18 04/23/2021 1:07 PM EST Oxygen Saturation - - Inhaled Oxygen Concentration - - Weight - - Height - - Body Mass Index - - documented in this encounter Miscellaneous Notes * Patient Instructions - Celia Peguero RN - 04/23/2021 1:00 PM EST [facility] Physician Orders/Patient Instructions Should you notice a significant change in your wound(s) (such as increased drainage, foul odor, or pain) or have questions or problems following these instructions, please contact us at or call your primary care physician or the hospital emergency rooms. Wound Care/Dressing: Wound location: right amputation site Cleanse Wound With: Normal Saline Apply: Heena (collagen with silver) activated with normal saline Cover With: 4 x 4 Secure With: Kerlix, bordered gauze or allevyn Dressing Changes: Daily Compression Dressing Compression Dressing: Other: right Jay wrap Compression Frequency Daily Will fax our note to your home health to continue care. Discussed using a stump senior teradata developer to help shape amputation site and remove swelling. You can get onethrough [facility] or other prosthetic clinics. * Progress Notes - Daniella Larose APRN - 04/23/2021 1:00 PM EST Subjective Trudi Blair is a 65 y.o. 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 Current wound care regimen is Heena. She is tolerating well. PMH significant for HTN and GERD. Denies [...] Comments: Open area on right lateral AKA stump - measurements smaller. [place] wound bed. No slough orfibrin. No undermining. Moderate serosanguineous drainage with no odor. Periwound intact with no erythema, warmth, or induration. Neurological: Mental Status: She is alert and oriented to person, place, and time. Psychiatric: Behavior: Behavior normal. Procedures Assessment/Plan Assessment / Plan: Problem List Items Addressed This Visit None Visit Diagnoses Non-healing surgical wound, subsequent encounter - Primary Recommend Heena daily. Counseled on signs and symptoms of infection. Advised to contact us or present to the closest emergency department with any concerns. documented in this encounter Plan of Treatment Not on file documented as of this encounter Visit Diagnoses Diagnosis Non-healing surgical wound, subsequent encounter- Primary documented in this encounter Additional Health Concerns Infection Onset Date Last Indicated Resolved Time MRSA Comment:MRSA (methicillin resistant Staphylococcus aureus) 04/17/2020 05/21/2022 Assessment Noted Time A fall risk assessment has been complete d for the patient 04/23/2021 1:07 PM EST documented as of this encounter Care Teams Manager Meat Relationship Specialty Start Date End Date Juan José Kendall MD [address] [place] [id number] PCP - General 03/12/21 documented as of this encounter
--- OUTSIDE RECORDS SUMMARY | 2024-03-11 09:26 | XMS_ITS | Encounter Summary ---
Author Organization [facility] Address [address] [place] [address] Care Team Providers Care Used Car Salesperson Name Role Phone Blu Birmingham MD Primary Care Provider [phone] Encounter Details Date Type Department Care Team ([facility] st Contact Info) Description 02/25/2021 Orders Only Medical Office [facility] [address], [address] [place] [address] Lesli Mccabe, LOAN INTERVIEWER [address] [place] [address] Social History Tobacco Use Types [...] documented as of this encounter Care Teams Used Car Salesperson Relationship Specialty Start Date End Date Blu Birmingham MD [address] [place] [id number] PCP - General 08/16/20 03/11/21 documented as of this encounter
--- OUTSIDE RECORDS SUMMARY | 2024-03-11 09:26 | XMS_ITS | Encounter Summary ---
Author Organization [facility] Address [address] [place] [address] Care Team Providers Care Executive Steward Name Role Phone Juan José Kendall MD Primary Care Provider +1- [phone] Encounter Details Date Type Department Care Team (Latest Contact Info) Description 05/20/2022 11:12 PM EST - 05/20/2022 11:59 PM EST Hospital Encounter [facility] [address] [place] [id number] Examination Discharge Disposition: Home or Self Care [...] Procedure Name Priority Date/Time Associated Diagnosis Comments CT ABDOMEN PELVIS W IV CONTRAST Routine 05/20/2022 11:12 PM EST Examination documented in this encounter Results * CT Abdomen Pelvis w IV Contrast (05/20/2022 11:12 PM EST) Narrative [...] a result. us Imaging Upload Radiant IMG CT PROCEDURES Final R esult IMAGING documented in this encounter Visit Diagnoses Diagnosis Examination Unspecified examination documented in this encounter Additional Health Concerns Infection Onset Date Last Indicated Resolved Time MRSA Comment:MRSA (methicillin resistant Staphylococcus aureus) 04/17/2020 05/21/2022 Assessment Noted Time A fall risk assessment has been complete d for the patient 04/23/2021 1:07 PM EST documented as of this encounter Care Teams Executive Steward Relationship Specialty Start Date End Date Juan José Kendall MD [address] [place] [id number] PCP - General 03/12/21 documented as of this encounter
--- OUTSIDE RECORDS SUMMARY | 2024-03-11 09:26 | XMS_ITS | Encounter Summary ---
Author Organization [facility] Address [address] [id number] Care Team Providers Care Claim Manager Name Role Phone Juan José Kendall MD Primary Care Provider [phone]- [phone] Reason for Visit * Auth/Cert (Routine) Specialty Diagnoses / Procedures Referred By Contac t Referred To Contact Diagnoses Choledocholithiasis with acute cholecystitis CHOLEDOCHOLITHIASIS, CHOLECYSTITIS Artemio Dorsey MD [address] [place] [address] Phone: tel: fax: [facility] [address] [place] [address] Phone: tel: Referral ID Status Reason Start Date Expiration Date Visits Re quested Visits Authorized [id number] 1 1 Encounter Details Date Type Department Care Team (Late st Contact Info) Description 05/21/2022 12:45 PM EST Anesthesia Event [facility] [address] [place] [id number] Benjamin Lynn MD [address] [place] [address] Quiana Fisher APRN [address] [place] [address] Anesthesia Record Procedure Summary Procedure Name Responsible Anesthesiologist Anesthesia Start Time Anesthesia Stop Time ERCP Benjamin Lynn MD 05/21/22 1245 05/21 1345 Events Date Time Event Comment 05/21/2022 1129 1244 In Room 1245 An Start 1245 An Start Data 1250 An Induction The patient was reevaluated immediately before moderate or deep sedation use and before anesthesia induction. 1250 An Intubation 1257 Anesthesia Ready 1302 Proc Start 1327 Proc Fin 1334 An Extubation 1334 an stop data 1336 Out of Room 1343 Handoff to Receiving I compl eted my handoff to the receiving clinician during which we: 1. Identified the patient 2. Identified the responsible provider 3. Reviewed the pertinent medical history 4. Discussed the surgical course 5. Reviewed intra-op anesthesia management and issues during anesthesia 6. Set expectations for post-procedure period 7. Allowed opportunity for questions and acknowledgement of understanding. 1345 An Stop Meds Name Total propofol (Diprivan) injection 10 mg/mL 2 00 mg succinylcholine (Anectine) injection 20 mg/mL 100 mg ondansetron (Zofran) injection 2 mg/mL 4 mg Lidocaine HCl 100 MG/5ML 60 mg piperacillin-tazobactam (Zosyn) vial 3.3 75 g 3.375 g glucagon injection 1 mg 0.25 mg lactated Ringer's infusion 500 mL * Agents Name O2 N2O Air Sevoflurane Inspired Sevoflurane N2O Inspired N2O * Blood No blood administrations on file. Lines, Drains, and Airways Type Details Placement Removal Wound 03/12/21; 1433; Yes; Leg; Right; right AKA medial; 05/22/22; 1045; Amputation 03/12/21 1433 by Aditi Keenan RN 05/22/22 1045 by Barbara De La Garza RN Peripheral IV Placement Date: 05/06 08/25; Existing LDA Placed by: Outside Facility; Orientation: Anterior, Right; Location: Forearm; Removal Date: 05/22/22; Removal Time: 1043; Removal Reason: Other (Comment) (leaking IV) 05/20/22 0000 by Barbara Fuentes RN 05/22/22 1043 by Barbara De La Garza RN ETT Placement Date: 05/06 09/25; Placement Time: 1250 (created via procedure documentation); Mask Ventilation: 0; Technique: Direct laryngoscopy; Type: ETT - single; Single Lumen Tube Size: 7 mm; Cuffed: Yes; Laryngoscope: Shanel; Blade Size: 3; Location: Oral; Grade View: Grade I; Insertion Attempts: 1; Placement Verification: Auscultation, Capnometry; Airway Comments: Atraumatic. No change to dentition. ; Placed by: OFFSET PRESS OPERATOR HELPER; Removal Date: 05/21/22; Removal Time: 1334 05/21/22 1250 by Mercedes Graves 05/21/22 1334 by Mercedes Graves Peripheral IV Placement Date: 05/06 09/25; Placement Time: 1255 (created via procedure documentation); Catheter Size: 20 G; Orientation: Right; Location: Hand; Local Anesth: None; Technique: Anatomical landmarks; Insertion Attempts: 1; Removal Date: 05/23/22; Removal Time: 11205/21/22 1255 by Mercedes Graves 05/23/22 1127 by Zainab Zhang RN documented in this encounter Social History Tobacco [...] Miscellaneous Notes * Anesthesia Postprocedure Evaluation - Mercedes Graves - 05/21/2022 1:45 PM EST Patient: Trudi Blair Anesthesia Type: general Vitals Value Taken Time BP 114/84 05/21/22 1345 Temp 37 05/21/22 1345 Pulse 75 05/21/22 1345 Resp 14 05/21/22 1345 SpO2 99 05/21/22 1345 Anesthesia Post Evaluation Patient location during evaluation: PACU Patient participation: complete - patient participated Level of consciousness: baseline Pain management: adequate (pain score 0-3) Airway patency: natural airway Cardiovascular status: acceptable Respiratory status: acceptable, room air, unassisted, nonlabored ventilation and spontaneous ventilation Hydration status: acceptable No notable events documented. * Anesthesia Procedure Notes - Mercedes Graves - 05/21/2022 12:58 PM EST Associated Order(s): Peripheral IV Peripheral IV Date/Time: 05/21/2022 12:55 PM Placement Needle size: 20 G Location: hand Local anesthetic: none Site prep: alcohol Technique: anatomical landmarks Attempts: 1 * Anesthesia Procedure Notes - Mercedes Graves - 05/21/2022 12:58 PM EST Associated Order(s): Airway Airway Date/Time: 05/21/2022 12:50 PM Urgency: elective Airway not difficult General Information and Staff Patient location during procedure: [place] Anesthesiologist: Benjamin Lynn MD OFFSET PRESS OPERATOR HELPER: Mercedes Graves CRNA Performed: OFFSET PRESS OPERATOR HELPER Indications and Patient Condition Indications for airway management: anesthesia Spontaneous Ventilation: absent Preoxygenated: yes Patient position: sniffing Mask difficulty assessment: 0 - not attempted Final Airway Details Final airway type: endotracheal airway Successful airway: ETT Cuffed: yes Successful intubation technique: direct laryngoscopy Facilitating devices/methods: cricoid pressure Endotracheal tube insertion site: oral Blade: Shanel Blade size: #3 ETT size (mm): 7.0 Cormack-Lehane Classification: grade I - full view of glottis Placement verified by: chest auscultation and capnometry Measured from: teeth Number of attempts at approach: 1 Additional Comments Atraumatic. No change to dentition. * Anesthesia Preprocedure Evaluation - Mercedes Graves - 05/21/2022 10:13 AM EST Patient: Trudi Blair Procedure Information Date/Time: 05/21/22 1300 Procedure: ERCP Location: [facility] HPI Trudi Blair is a 66 y.o. female with PMHx of chronic pain, recurrent MRSA infections, and GERD with a hiatal hernia presenting with epigastric/right upper quadrant pain that presents with Choledocholithiasis with acute cholecystitis. C/o nausea and 9/10 epigastric pain. Nausea prev with anesthesia. Prev leg amputation. Denies cardioresp issues. Controlled gerd. NPO STATUS: since [place] Activity Level/METS Relevant Problems Cardio (+) Primary hypertension GI (+) Gastroesophageal reflux disease (+) Hiatal hernia Nervous (+) Chronic pain disorder Digestive (+) Choledocholithiasis with acute cholecystitis Other (+) Staphylococcal arthritis of right knee (CMS/HCC) (+) Staphylococcal arthritis, right knee (CMS/HCC) SOCIAL HX Social History Tobacco Use Smoking Status Never Smokeless Tobacco Never Social History Substance and Sexual Activity Alcohol Use Never Social History Substance and Sexual Activity Drug Use Never SURGICAL HX Past Surgical History: Procedure Laterality Date ??? APPENDECTOMY ??? BACK SURGERY N/A Back surgery from [facility] ??? DILATION AND CURETTAGE OF UTERUS ??? FOOT SURGERY Bilateral Foot surgery from [facility] ??? HYSTERECTOMY N/A Hysterectomy from [facility] ??? KNEE ARTHROPLASTY Bilateral ??? KNEE SURGERY Bilateral Knee Surgery from [facility] ??? LEG AMPUTATION R AKA ??? SPINAL FUSION lumbar ALLERGIES Allergies Allergen Reactions ??? Clarithromycin Other and Unknown severe acid reflux MEDICATIONS Scheduled ??? acetaminophen, 1,000 mg, Oral, q6h TAJ ??? atorvastatin, 20 mg, Oral, Nightly ??? gabapentin, 200 mg, Oral, TID ??? [Held by provider] heparin (porcine), 5,000 Units, Subcutaneous, q8h TAJ ??? magnesium sulfate, 2 g, Intravenous, Once ??? methocarbamol, 500 mg, Oral, q8h ??? midodrine, 10 mg, Oral, BID ??? pantoprazole, 40 mg, Oral, Daily before breakfast ??? piperacillin-tazobactam, 4.5 g, Intravenous, q6h ??? topiramate, 50 mg, Oral, BID ??? traZODone, 50 mg, Oral, Nightly LABS Labs in last 18 hours CBC WBC 10.34 (H) Hb 11.4 Plt 151 (L) Hct 35.6 ANC ?? INR ??, PTT ??, Anti-Xa ?? BMP Na 134 (L) Cl 104 BUN 14 Glu 113 (H) K 4.0 Co2 20 (L) Cr 1.00 Ca 8.4 (L) iCa ?? Mg 1.7 (L), Phos 2.5 Lactate ?? LFT AST 489 (H) AlkPhos 221 (H) T Prot 5.1 (L) ALK 217 (H) Bili 2.2 (H) Alb ?? D.Bili ?? EKG, ECHO, Cath, Imaging, PFTs EKG No results found for this or any previous visit (from the past 4464 hour(s)). ECHO No echocardiogram results found for the past 12 months CXR Body mass index is 26.22 kg/m??. Vitals: 05/21/22 0317 BP: 98/62 Pulse: 66 Resp: 15 Temp: 36.4 ??C (97.6 ??F) SpO2: 95% Anesthesia Evaluation Physical Exam Airway Mallampati: II Mouth opening: normal TM distance: >3 FB Neck ROM: full Cardiovascular - normal exam Rhythm: regular Dental - normal exam Pulmonary - normal exam Breath sounds clear to auscultation Neurological Oriented: normal to time, normal to place and normal to person and oriented to person, place and time Skin Musculoskeletal Comments: R LE Amputation Extremities -normal exam Anesthesia Plan ASA 2 Anesthesia technique(s) discussed with the patient/family: General Anesthesia plan agreed upon was: general Post operative pain planned: discuss with surgical team Induction planned: intravenous and rapid sequence Premedication planned: none Anesthetic plan and risks discussed with patient. Use of blood products discussed with patient who consented to blood products. Plan discussed with OFFSET PRESS OPERATOR HELPER. Additional Equipment Requests documented in this encounter Plan of Treatment Not on file documented as of this encounter Procedures Procedure Name Priority Date/Time Associated Diagnosis Comments ANESTHESIA PERIPHERAL IV PLACEMENT Routine 05/21/2022 12:55 PM EST SC AN ELECTIVE ENDOTRACHEAL AIRWAY Routine 05/21/2022 12:50 PM EST documented in this encounter Results * Peripheral IV (05/21/2022 12:55 PM EST) Narrative Mercedes Graves - 05/21/2022 12:55 PM EST Mercedes Graves CRNA ? 05/21/2022 12:58 PM Peripheral IV Date/Time: 05/21/2022 12:55 PM Placement Needle size: 20 G Location: hand Local anesthetic: none Site prep: alcohol Technique: anatomical landmarks Attempts: 1 Benjamin Lynn MD ANESTHESIA ORDERABLES Final Result * SC AN ELECTIVE ENDOTRACHEAL AIRWAY (05/21/2022 12:50 PM EST) Mercedes Angeles - 05/21/2022 12:50 PM EST Mercedes Graves CRNA ? 05/21/2022 12:58 PM Airway Date/Time: 05/21/2022 12:50 PM Urgency: elective Airway not difficult General Information and Staff Patient location during procedure: [place] Anesthesiologist: Benjamin Lynn MD OFFSET PRESS OPERATOR HELPER: Mercedes Graves CRNA Performed: KALPESH Indications and Patient Condition Indications for airway management: anesthesia Spontaneous Ventilation: absent Preoxygenated: yes Patient position: sniffing Mask difficulty assessment: 0 - not attempted Final Airway Details Final airway type: endotracheal airway Successful airway: ETT Cuffed: yes Successful intubation technique: direct laryngoscopy Facilitating devices/methods: cricoid pressure Endotracheal tube insertion site: oral Blade: Shanel Blade size: #3 ETT size (mm): 7.0 Cormack-Lehane Classification: grade I - full view of glottis Placement verified by: chest auscultation and capnometry Measured from: teeth Number of attempts at approach: 1 Additional Comments Atraumatic. No change to dentition. Benjamin Lynn MD ANESTHESIA ORDERABLES Final Result documented in this encounter Visit Diagnoses Not on filedocumented in this encounter Administered Medications Inactive Administered Medications - up to 3 most recent administrations Medication Order MAR Action Action Date Dose Rate Site glucagon (human recombinant) injection Intravenous, As needed, Starting on Anuradha 05/21/22 at 1303, Until Anuradha 05/21/22 at 1345, Routine, Anesthesia Intraprocedure Given 05/21/2022 1:03 PM EST 0.25 mg lactated Ringer's infusion 100 mL/hr, Intravenous, Once, 1 dose, On Anuradha 05/21/22 at 1145, Routine New Bag 05/21/2022 12:44 PM EST Lidocaine HCl solution prefilled syringe Buccal, As needed, Starting on Anuradha 05/21/22 at 1248, Anesthesia Intraprocedure Given 05/21/2022 12:48 PM EST 60 mg ondansetron (Zofran) injection Intravenous, As needed, Starting on Anuradha 05/21/22 at 1322, Until Anuradha 05/21/22 at 1345, Routine, Anesthesia Intraprocedure Given 05/21/2022 1:22 PM EST 4 mg piperacillin-tazobactam (Zosyn) injection Intravenous, As needed, Starting on Anuradha 05/21/22 at 1300, Until Anuradha 05/21/22 at 1345, Routine, Anesthesia Intraprocedure Given 05/21/2022 1:00 PM EST 3.375 g propofol (Diprivan) injection Intravenous, As needed, Starting on Anuradha 05/21/22 at 1250, Until Anuradha 05/21/22 at 1345, Routine, Anesthesia Intraprocedure Given 05/21/2022 1:24 PM EST 10 mg Given 05/21/2022 1:21 PM EST 10 mg Given 05/21/2022 1:16 PM EST 10 mg succinylcholine (Anectine) injection Intravenous, As needed, Starting on Anuradha 05/21/22 at 1250, Until Anuradha 05/21/22 at 1345, Routine, Anesthesia Intraprocedure Given 05/21/2022 12:50 PM EST 100 mg documented in this encounter Additional Health Concerns Infection Onset Date Last Indicated Resolved Time MRSA Comment:MRSA (methicillin resistant Staphylococcus aureus) 04/17/2020 05/21/2022 Assessment Noted Time A fall risk assessment has been complete d for the patient 04/23/2021 1:07 PM EST documented as of this encounter Care Teams Claim Manager Relationship Specialty Start Date End Date Juan José Kendall MD [address] [place] [phone] PCP - General 03/12/21 documented as of this encounter
--- OUTSIDE RECORDS SUMMARY | 2024-03-11 09:26 | XMS_ITS | Encounter Summary ---
Author Organization [facility] Address [address] [place] [address] Care Team Providers Care Medical Research Tech Name Role Phone Juan José Kendall MD Primary Care Provider [phone] Reason for Referral * Imaging (Routine) - Closed Specialty Diagnoses / Procedures Referred By Beth ricci Referred To Contact Gastroenterology Diagnoses Choledocholithiasis with acute cholecystitis Procedures ERCP 1 - Grade 1 Irma Reynoso MD [address] [address] Phone: tel: fax: Referral ID Status Reason Start Date Expiration Date V isits Requested Visits Authorized [id number] Closed Specialty Services Required 05/22/2022 11/21/2023 1 1 Reason for Visit * Auth/Cert (Routine) Specialty Diagnoses / Procedures Referred By Beth ricci Referred To Contact Diagnoses Choledocholithiasis with acute cholecystitis CHOLEDOCHOLITHIASIS, CHOLECYSTITIS Artemio Dorsey MD [address] [address] Phone: tel: fax: [facility] Inpatient [address] [place] [address] Phone: tel: Referral ID Status Reason Start Date Expiration Date Visits Re quested Visits Authorized [id number] 1 1 Encounter Details Date Type Department Care Team (Latest Contact Info) Description 05/20/2022 10:38 PM EST - 05/23/2022 12:45 PM EST Hospital Encounter [facility] Inpatient [address] [place] [address] Irma Reynoso MD [address] [facility] [address] [place] [address] Artemio Dorsey MD [address] [facility] [address] [place] [address] Choledocholithiasis with acute cholecystitis (Primary Dx) Discharge Disposition: Home or Self Care Social [...] AM EST documented as of this encounter Last Filed Vital Signs Vital Sign Reading Time Taken Comments Blood Pressure 96/61 05/23/2022 11:00 AM EST Pulse 65 05/23/2022 11:00 AM EST Temperature 36.5 ??C (97.7 ??F) 05/23/2022 11:[address] Respiratory Rate 16 05/23/2022 11:00 AM EST Oxygen Saturation 98% 05/23/2022 11:00 AM EST Inhaled Oxygen Concentration - - Weight 73.7 kg (162 lb 7.7 oz) 05/21/2022 3:00 A M EST Height 167.6 cm (5' 6 ) 05/21/2022 3:00 AM EST Body Mass Index 26.22 05/21/2022 3:00 AM EST documented in this encounter Discharge Instructions * Discharge Instructions* Villa Corcoran RN - 05/23/2022 11:17 AM EST Post Discharge Instructions Patient may shower 24 hours after discharge Take medications as prescribed. Patient should not bathe or soak wounds until next clinic follow-up If patient begins feeling nauseated, decreased diet to liquid diet until resolution of symptoms. No lifting greater than 20 lb until clinic follow-up. * Attachments The following attachments cannot be sent through Care Everywhere. * Colonoscopy, Gastroscopy, or ERCP Discharge Instructions - Endoscopy Unit () ([place]) * Anesthesia: General Anesthesia ([place]) * Cholecystectomy ([place]) * Laparoscopic Cholecystectomy, Having ([place]) * Surgical Site Infections, Preventing ([place]) * Endoscopic Retrograde Cholangiopancreatography, ERCP ([place]) documented in this encounter Medications at Time [...] as of this encounter Miscellaneous Notes * Care Plan - Zainab Zhang RN - 05/23/2022 11:26 AM EST Problem: Adult Inpatient Plan of Care Goal: Patient-Specific Goal (Individualized) Flowsheets (Taken 05/23/2022 0900) Patient/Family-Specific Goals (Include Timeframe): Patient will rate pain as tolerable for the next12 hours. Individualized Care Needs: Pain control Anxieties, Fears or Concerns: Pain * Hospital Course - Edi Daily MD - 05/23/2022 10:49 AM EST Patient was admitted on 05/20 for concern for choledocholithiasis with acute cholecystitis. Patientwas medically optimized and ready for the OR on 05/22. Patient tolerated the surgery well with no postoperative complications. Patient was discharged from PACU in a stable condition. Patient was stable for a discharge on 05/23 on oral medications and she is passing flatus and tolerating by mouth intake * Discharge Summary - Edi Daily MD - 05/23/2022 10:44 AM EST Hospitalization Admit Date/Time: 05/20/2022 10:38 PM Admitting Attending: Artemio Dorsey Discharge Date: 05/23/2022 Discharge Attending Physician: Irma Reynoso Md PCP name and Address: Juan José Kendall MD [address] [facility] / [place] [address] Referring provider name and address: Jose Manuel [facility] [place] [address] Chief Concern, Brief History of Present Illness, and Hospital Course Surgeries and Procedures Procedures performed in this encounter Procedures Case Request Operating Room: CHOLECYSTECTOMY, LAPAROSCOPIC CHOLECYSTECTOMY, LAPAROSCOPIC (N/A) Medication List .. atorvastatin 20 MG tablet Commonly known as: Lipitor Take 20 mg by mouth every night. jvrznabznmrbpnl-yomgtlkvspwelpo-NG 30-2-10 MG/5ML syrup Take 5 mL by mouth 4 (four) times a day if needed. diphenhydrAMINE 50 MG tablet Commonly known as: BENADryl Take 50 mg by mouth at night if needed for sleep. gabapentin 300 MG capsule Commonly known as: Neurontin Take 1 capsule by mouth every morning and 2 capsules at bedtime hyoscyamine 0.125 MG tablet Commonly known as: Anaspaz,Levsin Take 0.125 mg by mouth 2 (two) times a day. levothyroxine 25 MCG tablet Commonly known as: Synthroid, Levoxyl Take 25 mcg by mouth 1 (one) time each day. magnesium oxide 400 mg tablet Commonly known as: Mag-Ox Take 400 mg by mouth 1 (one) time each day. midodrine 10 MG tablet Commonly known as: Proamatine Take 10 mg by mouth 2 (two) times a day. morphine CR 15 MG 12 hr tablet Commonly known as: MS Contin Take 30 mg by mouth 2 (two) times a day. 2 tablets twice daily ondansetron 4 MG tablet Commonly known as: Zofran Take 4 mg by mouth 3 (three) times a day if needed. pantoprazole 40 MG EC tablet Commonly known as: Protonix Take 40 mg by mouth 1 (one) time each day before breakfast. potassium chloride ER 10 MEQ ER capsule Commonly known as: Micro-K Take 10 mEq by mouth 2 (two) times a day. Do not crush or chew. topiramate 50 MG tablet Take 50 mg by mouth 2 (two) times a day. traZODone 50 MG tablet Commonly known as: Desyrel Take 50 mg by mouth every night. Discharge Diagnosis Medical Problems Active and Resolved Hospital Problems Hospital * (Principal) Choledocholithiasis with acute cholecystitis Chronic pain disorder Post Discharge Instructions Patient may shower 24 hours after discharge Take medications as prescribed. Patient should not bathe or soak wounds until next clinic follow-up If patient begins feeling nauseated, decreased diet to liquid diet until resolution of symptoms. No lifting greater than 20 lb until clinic follow-up. Outpatient Follow-Up No future appointments. Test Results Pending At Discharge Pending Labs Order Current Status Surgical Pathology Exam In process Pertinent Physical Exam At Time of Discharge Physical Exam Discharge Disposition/Condition Disposition: Home Condition: Stable (s/sx potential problems absent or manageable) I spent >30 minutes of patient care and instruction time in preparation for this discharge. Cosigned by Irma Reynoso MD at 06/01/2022 5:29 PM EST Associated attestation - Irma Reynoso MD - 06/01/2022 5:29 PM EST I saw and evaluated the patient with the resident/fellow. I discussed the case with the resident/fellow and agree with the findings and plan as documented. * Anesthesia PACU Signout - Jack Henriquez MD - 05/22/2022 2:47 PM EST Patient: Trudi Blair Anesthesia Type: general Vitals Value Taken Time BP 105/67 05/22/22 1445 Temp 36.4 ??C (97.5 ??F) 05/22/22 1430 Pulse 78 05/22/22 1447 Resp 17 05/22/22 1447 SpO2 97 % 05/22/22 1447 Vitals shown include unvalidated device data. Anesthesia PACU Signout Patient location during evaluation: PACU Level of consciousness: awake and responsive to physical stimuli Pain management: adequate (pain score 0-3) Airway patency: natural airway Hydration status: acceptable Cardiovascular status: acceptable and hemodynamically stable Respiratory status: acceptable, nonlabored ventilation, spontaneous ventilation and room air Cosigned by Dwight Juárez MD at 05/22/2022 3:11 PM EST Associated attestation - Dwight Juárez MD - 05/22/2022 3:11 PM EST I saw and evaluated the patient with the resident/fellow. I discussed the case with the resident/fellow and agree with the findings and plan as documented. * Care Plan - Ines Cloud MD - 05/22/2022 2:38 PM EST Patient seen following laparoscopic cholecystectomy. She reports that she was feeling well this morning prior to surgery, and had improvement in abdominal pain that brought her to hospital. On ERCP yesterday, she had multiple stones swept from duct, sphincterotomy performed and 2 stents placed. We will plan for repeat ERCP for stent removal in about 8 weeks as an outpatient. Ines Cloud, PGY-6 Gastroenterology Fellow * Op Note - Irma Reynoso MD - 05/22/2022 12:38 PM EST Operative Note Date: 05/22/22 Location: [facility] Name: Trudi Blair, : 1955, Diagnoses: Pre-op Diagnosis Choledocholithiasis with acute cholecystitis Post-op Diagnosis Choledocholithiasis with acute cholecystitis Procedure(s): Laparoscopic cholecytectomy Attending Surgeon(s): * Irma Reynoso - Primary Barista(s): * Dwight Valdez MD - Resident - Assisting Anesthesia: General ASA: ASA status not filed in the log. Blood Administration: Blood Product Administration History Date Volume Status Transfuse RBC 01/23/2021 530 mL Completed 01/23/21231401/23/2021 330 mL Completed 01/23/212316 Estimated Blood Loss: 100mL Drains: * None in log * Specimen: Specimens ID Source Frozen? 1 Gallbladder No Description: gallbladder for permanent Findings: Acutely inflamed gallbladder with stones Indications: Trudi Blair is an 66 y.o. female who is having surgery for Choledocholithiasis withacute cholecystitis. Risk and benefits of laparoscopic cholecystectomy including infection, bleeding, injury to the bile duct and bowel, and potential need for open operation were discussed in detail. All questions were answered and the patient wishes to proceed. Narrative: The patient was taken to the operating room and placed on the operating table in the supine position. After induction of general anesthesia a time-out procedure was performed to ensure proper procedure and patient identification. The patient's abdomen was prepped and draped in the usual sterile fashion. A umbilical skin incision was created using a scalpel and deepened bluntly to the fascia. The fascia was grasped, elevated, and incised. The abdomen was bluntly entered and a 12 mm trocar was placed. The abdomen was insufflated without difficulty and abdomen inspected. No injuries from trocar placement were noted. The patient was then placed in reverse Trendelenburg position with right side e levated. A 11 mm trocar was placed in the epigastrium and 2 additional 5 mm trocars were placed along the right costal margin. The gallbladder was noted to be acutely inflamed and intrahepatic. The gallbladder was grasped and retracted over the dome of the liver. The infundibulum was grasped and retracted laterally. The cystic duct and cystic artery were circumferentially dissected until the junction with the gallbladder could clearly be appreciated. The patients tissues were quite inflamed andvery friable.The critical view of safety was obtained. The cystic duct and cystic artery were then doubly clipped and divided close to the gallbladder wall. The gallbladder was dissected free from the liver bed using electrocautery and removed from the abdomen using laparoscopic retrieval bag. The gallbladder fossa was inspected, hemostasis was assured, there was no evidence of bile leak. There was no evidence of bleeding with Valsalva maneuver. The clips were found to be in good position. At this point all secondary trocars were removed from the abdomen. The umbilical trocar was removed and the abdomen allowed to collapse. The umbilical fascia was reapproximated with [id number] 0 Vicryl. All skin incisions were reapproximated with interrupted inverted 4-0 Monocryl and sterile dressing was applied. The patient tolerated the procedure well was taken to recovery in stable condition. Complications: None; patient tolerated the procedure well. Submitted by: Irma Reynoso MD - 05/23/2022 * Brief Op Note - Dwight Valdez MD - 05/22/2022 12:38 PM EST Date: 05/22/22 Location: [facility] Name: Trudi Blair, : 1955, Diagnoses: Pre-op Diagnosis Choledocholithiasis with acute cholecystitis GERD Hx MRSA of Right knee s/p amputation HTN Post-op Diagnosis same Procedure(s): Laparoscopic cholecystectomy Attending Surgeon(s): * Irma Reynoso - Primary Barista(s): * Dwight Valdez MD - Resident - Assisting Anesthesia: General ASA: ASA status not filed in the log. Blood Administration: Blood Product Administration History Date Volume Status Transfuse RBC 01/23/2021 530 mL Completed 01/23/21231401/23/2021 330 mL Completed 01/23/212316 Estimated Blood Loss: Minimal Drains: * None in log * Specimen: Specimens ID Source Frozen? 1 Gallbladder Description: gallbladder for permanent Findings: intrahepatic gallbladder with evidence of chronic inflammation. Surgicel packed in fossa.Clips placed with hemostasis achieved. Complications: None; patient tolerated the procedure well. Submitted by: Dwight Valdez MD - 05/22/2022 Cosigned by Irma Reynoso MD at 05/23/2022 7:46 AM EST Associated attestation - Irma Reynoso MD - 05/23/2022 7:46 AM EST I was present for the entirety of the procedure(s). * Consults - Kary Wilson - 05/22/2022 11:06 AM EST Adult Nutrition Evaluation Note Trudi Blair 66 y.o. female CSN: [id number] Room/Bed 127/127A Nutrition evaluation type: assessment Reason for evaluation: [facility] Hospital course: 66 y/o F with choledocholithiasis with acute cholecystitis to OR for lap christiana today. Past medical/ surgical history: Date Anxiety Cancer (CMS/HCC) cervical Chronic pain disorder Delayed emergence from general anesthesia Diverticulosis GERD (gastroesophageal reflux disease) Hiatal hernia History of transfusion Hypercholesteremia Hypertension now she is hypotension and takes Midodrine to elevate bp Joint pain Osteoarthritis Past Surgical History: Procedure Laterality Date APPENDECTOMY BACK SURGERY N/A Back surgery from [facility] DILATION AND CURETTAGE OF UTERUS FOOT SURGERY Bilateral Foot surgery from [facility] HYSTERECTOMY N/A Hysterectomy from [facility] KNEE ARTHROPLASTY Bilateral KNEE SURGERY Bilateral Knee Surgery from [facility] LEG AMPUTATION R AKA SPINAL FUSION lumbar Social history: Additional comments: Pt out of room. Vitals and Basic Assessment: BP: 92/69 Temp: 37 ??C (98.6 ??F) Oxygen Therapy: None (Room air) O2 Delivery Method: Nasal cannula Jennifer Coma Scale Score: 15 Cain Scale Score: 17 Last BM Date: 05/20/22 GI Symptoms: Nausea Edema: Left lower extremity Allergies: NKFA Medications: acetaminophen, 1,000 mg, Oral, q6h TAJ atorvastatin, 20 mg, Oral, Nightly enoxaparin, 40 mg, Subcutaneous, Daily gabapentin, 200 mg, Oral, TID levothyroxine, 25 mcg, Oral, q AM methocarbamol, 500 mg, Oral, q8h midodrine, 10 mg, Oral, BID pantoprazole, 40 mg, Oral, Daily before breakfast piperacillin-tazobactam, 4.5 g, Intravenous, q6h Povidone-Iodine, 1 Swab, Nasal, Daily sodium chloride, 10 mL, Intravenous, q12h sodium phosphate, 0.16 mmol/kg ([place]), Intravenous, Once topiramate, 50 mg, Oral, BID traZODone, 50 mg, Oral, Nightly dextrose 5 % and lactated Ringer's, 75 mL/hr, Last Rate: 75 mL/hr (05/20/22 1209) PRN medications: glucose OR dextrose 10 %, dextrose 10 % OR glucose, glucagon (human recombinant), glucose, HYDROmorphone, metoclopramide, ondansetron, oxyCODONE OR oxyCODONE, Insert peripheral IV AND Saline lock IV AND sodium chloride AND sodium chloride, Insert peripheral IV AND Saline lock IV AND sodium chloride AND sodium chloride Meds were reviewed: Yes Labs: Results from last 7 days Lab Units 05/22/22 0417 05/21/22 0120 SODIUM mmol/L 135* 134* POTASSIUM mmol/L 3.5* 4.0 CHLORIDE mmol/L 104 104 CO2 mmol/L 17* 20* BUN mg/dL 11 14 CREATININE mg/dL 1.13* 1.00 EGFR mL/min/1.73m*2 53.4 61.9 GLUCOSE mg/dL 78 113* CALCIUM mg/dL 8.2* 8.4* PHOSPHORUS mg/dL 2.4* 2.5 Lab Results Component Value Date ALBUMIN 2.9 (L) 05/22/2022 Results from last 7 days Lab Units 05/22/22 0417 MAGNESIUM mg/dL 2.1 Lab Results Component Value Date ALKPHOS 204 (H) 05/22/2022 Lab Results Component Value Date ALT 116 (H) 05/22/2022 Results from last 7 days Lab Units 05/22/22 0417 05/21/22 0120 WBC 10*3/uL 7.35 10.34* HEMOGLOBIN g/dL 11.9 11.4 HEMATOCRIT % 36.7 35.6 PLATELETS 10*3/uL 141* 151* Lab Results Component Value Date CRP 35.8 (H) 04/18/2020 *Albumin possibly skewed secondary to acute negative phase respondent. *Elevated CRP Anthropometrics: Ht: 167.6 cm Wt: 73.7 kg BMI: 26.22 Wt eval: overweight. IBW: 52.38 kg (adjusted for AKA) %IBW : 141 Adjusted Body Weight: 57 kg Weight History: Wt Readings from Last 7 Encounters: 05/21/22 73.7 kg (162 lb 7.7 oz) 02/25/21 58.5 kg (129 lb) 01/23/21 58.5 kg (128 lb 15.5 oz) 12/24/20 58.5 kg (129 lb) 09/10/20 62.1 kg (137 lb) 06/04/20 75 kg (165 lb 5.5 oz) 03/05/20 75 kg (165 lb 5.5 oz) Estimated Needs: Kcal: (kcal/d) Kcal/kg: Protein: ( g/d) Pro/kg: Based on: Current Nutrition Intake: Diet: NPO Supplements: Intake: I/o's: Intake/Output Summary (Last 24 hours) at 05/22/2022 1110 Last data filed at 05/22/2022 0614 Gross per 24 hour Intake 840 ml Output 3 ml Net 837 ml Nutrition Support: Tube Feeding Route: (-) Enteral Regimen: Provides: Kcal: g Pro: mL Fw/d: Avg enteral infusion: Tolerates: Diet Experience & Nutrition History: Nutrition Regimen [employer] CONSULTANT: Reported Intake [employer] CONSULTANT: Diet Education: Will monitor Pertinent Home Medications: Noted Nutrition Focused Physical Exam: Physical exam performed on (date): Pending/ Unavailable. Assessment of Malnutrition: Nutrition Problem: Increased nutrient needs PRO related to Increased metabolic needs for healing as evidenced by s/p lap christiana. Status of Nutrition Diagnosis: New Nutrition Interventions and Recommendations: Rec clears and Advance as tolerated to GI soft diet when appropriate. Rec Impact AR BID once diet advanced post op. MVI with minerals. Record PO intake. Nutrition Monitoring and Goals: Monitor tolerance and adequacy of po intake / enteral infusion, wt changes, bowel fxn, labs, skin integrity; and follow up per acuity. Patient will consume >50% of most meals once diet advanced. Acuity Level: 1 Kary Wilson * Progress Notes - Irma Reynoso MD - 05/22/2022 6:45 AM EST 05/22/22 Trudi Blair HPI 66yoF w/ hx of GERD, chronic pain, hiatal hernia who presents with choledocholithiasis and acute cholecystitis. Interval: NAEON. She says she feels better after her procedure yesterday, but still does have some abd pain. She says her pain has migrated more toward her lower abd. Edited by: Bart Solis at 05/22/2022 0645 A 14 point review of systems was reviewed and is negative except as mentioned in the HPI. Vital signs: Vitals: 05/22/22 0349 BP: 116/67 Pulse: 57 Resp: 18 Temp: 36.9 ??C (98.4 ??F) SpO2: 96% Physical Exam Vitals reviewed. Constitutional: General: She is not in acute distress. Appearance: Normal appearance. She is obese. She is not ill-appearing or toxic-appearing. HENT: Head: Normocephalic and atraumatic. Mouth/Throat: Mouth: Mucous membranes are moist. Dentition: Normal dentition. Pharynx: Oropharynx is clear. No oropharyngeal exudate or posterior oropharyngeal erythema. Eyes: Extraocular Movements: Extraocular movements intact. Pupils: Pupils are equal, round, and reactive to light. Cardiovascular: Rate and Rhythm: Normal rate and regular rhythm. Pulses: Radial pulses are 2+ on the right side and 2+ on the left side. Dorsalis pedis pulses are 2+ on the right side and 2+ on the left side. Heart sounds: S1 normal and S2 normal. No murmur heard. No friction rub. No gallop. Pulmonary: Effort: Pulmonary effort is normal. No respiratory distress. Breath sounds: Normal breath sounds. Abdominal: General: Bowel sounds are normal. There is no distension. Palpations: Abdomen is soft. Tenderness: There is abdominal tenderness (Epigastric tenderness, mildly TTP in RUQ).). Musculoskeletal: Right lower leg: No edema. Left lower leg: No edema. Comments: Right aka Lymphadenopathy: Cervical: No cervical adenopathy. Skin: General: Skin is warm and dry. Coloration: Skin is not pale. Neurological: Mental Status: She is alert and oriented to person, place, and time. Motor: Motor function is intact. No weakness. Gait: Gait is intact. Intake/Output Summary (Last 24 hours) at 05/22/2022 0645 Last data filed at 05/22/2022 0614 Gross per 24 hour Intake 840 ml Output 3 ml Net 837 ml Lines/Drains/Tubes: Patient Lines/Drains/Airways Status Active Airway None Output by Drain (mL) 05/20/22 0700 - 05/20/22 18505/20/22 1900 - 05/21/22 0659 05/21/22 0700 - 05/21/22 1859 05/21/22 190 - 05/22/22 0645 Patient has no LDAs of requested type attached. Labs in last 18 hours: CBC WBC 7.35 Hb 11.9 Plt 141 (L) Hct 36.7 ANC ?? INR ??, PTT ??, Anti-Xa ?? MCV 90 BMP Na 135 (L) Cl 104 BUN 11 Glu 78 K 3.5 (L) Co2 17 (L) Cr 1.13 (H) Ca 8.2 (L) iCa ?? Mg 2.1, Phos 2.4 (L) Lactate ?? LFT AST 158 (H) AlkPhos 204 (H) T Prot 5.2 (L) ALK 116 (H) Bili 1.6 (H) Alb ?? D.Bili ?? Lab Trends: H/H Results from last 7 days Lab Units 05/22/22 0417 05/21/22 0120 HEMOGLOBIN g/dL 11.9 11.4 HEMATOCRIT % 36.7 35.6 INR Cr Results from last 7 days Lab Units 05/22/22 0417 05/21/22 0120 CREATININE mg/dL 1.13* 1.00 Medications reviewed. Vital signs reviewed. Labs reviewed. Radiography reviewed. Assessment and Plan: Medical Problems Problem List * (Principal) Choledocholithiasis with acute cholecystitis Gastroesophageal reflux disease Hiatal hernia Primary hypertension Knee pain Receiving intravenous antibiotic treatment as outpatient Chronic pain disorder Staphylococcal arthritis of right knee ([facility]/HCC) Overview Addendum 05/21/2022 3:25 PM by Kentrell Romero Added automatically from request for surgery [id number] Recurrent MRSA Present on Admission: Choledocholithiasis with acute cholecystitis Overwight Plan: - NPO - To OR today for lap christiana Edited by: Bart Solis at 05/22/2022 0645 Bart Solis * Significant Event - Haily, Nasrin A, MD - 05/22/2022 3:43 AM EST Patient to the OR today 05/22/22 for laparoscopic cholecystectomy. - No changes in signs, symptoms, or health status from Progress/Consult Note dated 05/21/22. - Patient is marked as needed, consented, and has remained NPO since midnight. Written consent is located in patient chart. - The risks, benefits, and alternatives were reviewed. Risks discussed include but not limited to bleeding, infection, damage to surrounding structures, need for additional procedures, wound complications, and risks inherent to anesthesia such as stroke, heart attack, and/or . - Patient and/or patient contact providing consent voiced understanding and agreed to proceed to the OR. 05/22/22 3:44 AM * Care Plan - Brenda Rubio RN - 05/21/2022 9:34 PM EST Problem: Adult Inpatient Plan of Care Goal: Patient-Specific Goal (Individualized) Outcome: Ongoing, Progressing Flowsheets (Taken 05/21/20221999) Patient/Family-Specific Goals (Include Timeframe): patient will verbalized plan of care by shift change tomorrow. Individualized Care Needs: pain management Anxieties, Fears or Concerns: RUQ pain Goal: Absence of Hospital-Acquired Illness or Injury Outcome: Ongoing, Progressing Goal: Optimal Comfort and Wellbeing Outcome: Ongoing, Progressing Goal: Readiness for Transition of Care Outcome: Ongoing, Progressing Problem: Pain Acute Goal: Optimal Pain Control and Function Outcome: Ongoing, Progressing Problem: Fall Injury Risk Goal: Absence of Fall and Fall-Related Injury Outcome: Ongoing, Progressing Problem: Mobility Impairment Goal: Optimal Mobility Outcome: Ongoing, Progressing * H&P - Rocco Johnson MD - 05/21/2022 12:27 PM EST History and physical by Dr. Cloud 05/21/2022 reviewed agree with assessment and plan no changes. Proceed with ERCP. * Consults - Ines Cloud MD - 05/21/2022 9:31 AM ESTAssociated Order(s): IP CONSULT TO GASTROENTEROLOGY Inpatient Gastroenterology, Hepatology and Nutrition Initial Consultation Note: Patient: Trudi Blair Date of : 1955 [facility] Referring provider: Surgery Reason for consultation: Choledocholithiasis Subjective: History of present illness: Ms. Trudi Blair is a 66 y.o. 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 The inpatient gastroenterology, hepatology and nutrition team was asked to see her in consultation for choledocholithiasis. Ms Blair presented yesterday evening as a transfer from [facility] with abdominalpain and concern for choledocholithiasis. She developed nausea yesterday morning, shortly followed by severe epigastric pain, described as sharp and radiating to her back. Pain is constant. Denies vomiting, fever or chills, and reports constipation at baseline that is unchanged. She went to [facility] after onset, and there was found to have elevated TB to 1.5, and imaging concerning for dilated CBD. She then underwent MRCP which was concerning for cholecystitis, CBD dilation, and filling defect in distal CBD concerning for choledocholithiasis. As a result, she was transferredto for further management. She continues to endorse pain at this time, though notes appetite is there. Review of Systems: General: No fever. No chills Ears: No hearing loss, tinnitus Eyes: No blurred vision, double vision, or scleral icterus Nose: No epistaxis, nasal congestion Throat: No sore throat CV: No chest pain, shortness of breath. Resp: No shortness of breath. No cough. GI: + abdominal pain, nausea, constipation; No vomiting, diarrhea, or GI bleeding. : No change in urine frequency and no dysuria. Skin: No rashes, bruising or jaundice Msk/Ext: No arthralgias. Neuro: No headaches, dizziness. Past Medical History: Diagnosis Date Anxiety Cancer (CMS/HCC) cervical Chronic pain disorder Delayed emergence from general anesthesia Diverticulosis GERD (gastroesophageal reflux disease) Hiatal hernia History of transfusion Hypercholesteremia Hypertension now she is hypotension and takes Midodrine to elevate bp Joint pain Osteoarthritis Past Surgical History: Procedure Laterality Date APPENDECTOMY BACK SURGERY N/A Back surgery from [facility] DILATION AND CURETTAGE OF UTERUS FOOT SURGERY Bilateral Foot surgery from [facility] HYSTERECTOMY N/A Hysterectomy from [facility] KNEE ARTHROPLASTY Bilateral KNEE SURGERY Bilateral Knee Surgery from [facility] LEG AMPUTATION R AKA SPINAL FUSION lumbar Family History Problem Relation Name Age of Onset Hypertension Other Other cancer Other Social History Tobacco Use Smoking status: Never Smokeless tobacco: Never Substance Use Topics Alcohol use: Never Drug use: Never Allergies Allergen Reactions Clarithromycin Other and Unknown severe acid reflux Current Facility-Administered Medications: acetaminophen (Tylenol) tablet 1,000 mg, 1,000 mg, Oral, q6h TAJ, Nasrin Johansen MD, 1,000 mg at 05/21/22 0502 atorvastatin (Lipitor) tablet 20 mg, 20 mg, Oral, Nightly, Nasrin Johansen MD, 20 mg at 05/21/22 0313 glucose (Glutose) 40 % oral gel 15 grams of glucose, 15 grams of glucose, Sublingual, q15 min PRN OR dextrose 10 % (D10W) bolus 125 mL, 12.5 g, Intravenous, q15 min PRN, Nasrin Johansen MD dextrose 10 % (D10W) bolus 250 mL, 25 g, Intravenous, q15 min PRN OR glucose (Glutose) 40 % oral gel 30 grams of glucose, 30 grams of glucose, Sublingual, q15 min PRN, Nasrin Johansen MD dextrose 5 % and lactated Ringer's infusion, 75 mL/hr, Intravenous, Continuous, Nasrin Johansen MD, Last Rate: 75 mL/hr at 05/20/222328, 75 mL/hr at 05/20/222328 gabapentin (Neurontin) capsule 200 mg, 200 mg, Oral, TID, Nasrin Johansen MD glucagon (human recombinant) injection 1 mg, 1 mg, Intramuscular, q15 min PRN, Nasrin Johansen MD glucose (Glutose) 40 % oral gel 15 grams of glucose, 15 grams of glucose, Sublingual, q15 min PRN, Nasrin Johansen MD [Held by provider] heparin (porcine) injection 5,000 Units, 5,000 Units, Subcutaneous, q8h TAJ, Nasrin Johansen MD, 5,000 Units at 05/21/22 0503 HYDROmorphone (Dilaudid) injection 0.25 mg, 0.25 mg, Intravenous, q3h PRN, Nasrin Johansen MD magnesium sulfate IVPB 2 g, 2 g, Intravenous, Once, Edi Daily MD methocarbamol (Robaxin) tablet 500 mg, 500 mg, Oral, q8h, Nasrin Johansen MD, 500 mg at 05/21/22 0006 metoclopramide (Reglan) injection 10 mg, 10 mg, Intravenous, q6h PRN, Nasrin Johansen MD, 10 mg at05/21/22 0503 midodrine (Proamatine) tablet 10 mg, 10 mg, Oral, BID, Nasrin Johansen MD ondansetron (Zofran) injection 4 mg, 4 mg, Intravenous, q6h PRN, Nasrin Johansen MD, 4 mg at 05/21/22 0805 oxyCODONE (Roxicodone) immediate release tablet 5 mg, 5 mg, Oral, q4h PRN OR oxyCODONE (Roxicodone) immediate release tablet 10 mg, 10 mg, Oral, q4h PRN, Nasrin Johansen MD, 10 mg at 05/21/22 0502 pantoprazole (Protonix) EC tablet 40 mg, 40 mg, Oral, Daily before breakfast, Nasrin Johansen MD piperacillin-tazobactam (Zosyn) 4.5 g in sodium chloride 0.9% 100 mL IVPB (Mini- Bag Plus), 4.5 g, Intravenous, q6h, Nasrin Johansen MD, 4.5 g at 05/21/22 0558 Insert peripheral IV, , , Once AND Saline lock IV, , , Once AND sodium chloride 0.9 % flush10 mL, 10 mL, Intravenous, q12h PRN AND sodium chloride 0.9 % flush 10 mL, 10 mL, Intravenous, PRN, Nasrin Johansen MD topiramate (Topamax) tablet 50 mg, 50 mg, Oral, BID, Nasrin Johansen MD traZODone (Desyrel) tablet 50 mg, 50 mg, Oral, Nightly, Nasrin Johansen MD, 50 mg at 05/21/22 0314 Objective: Temp: [36.4 ??C (97.6 ??F)-36.8 ??C (98.2 ??F)] 36.4 ??C (97.6 ??F) Heart Rate: [66-86] 66 Resp: [15-18] 15 BP: (98-147)/(62-79) 98/62 Weight: 73.7 kg (162 lb 7.7 oz) Body mass index is 26.22 kg/m??. Physical Examination: General Appearance: Awake, alert, oriented, in no apparent distress Head: Normocephalic, atraumatic Eyes: No scleral icterus. Neck: Neck supple. Lungs: Non-labored breathing Heart: Regular rate and rhythm Abdomen: Abdomen soft, non-distended, mildly tender to palpation Extremities: Lower extremity edema in LLE, Rt AKA Neurologic: No gross neurologic deficits. Laboratory: CBC WBC 10.34 (H) Hb 11.4 Plt 151 (L) Hct 35.6 INR ?? PTT ?? BMP Na 134 (L) Cl 104 BUN 14 Glu 113 (H) K 4.0 Co2 20 (L) Cr 1.00 Mg 1.7 (L) Phos 2.5 LFT AST 489 (H) AlkPhos 221 (H) T Prot 5.1 (L) ALK 217 (H) T Bili 2.2 (H) Alb ?? Imaging: === 05/20/22 === CT ABDOMEN PELVIS W IV CONTRAST - Narrative - This study was performed at an outside facility and has been loaded into the PACS system for reference only. This order has been auto-finalized and does not contain a result. Assessment and Plan: Ms. Trudi Blair is a 66 y.o. 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 The inpatient gastroenterology, hepatology and nutrition team was asked to see her in consultation for choledocholithiasis. Choledocholithiasis - MRCP performed at OSH notable for cholecystitis, CBD dilation and filling defect in distal CBD concerning for choledocholithiasis - TB 2.2 on arrival, up from 1.5 at OSH - Afebrile, WBC 10.3 here - Plan for ERCP today, please keep NPO and hold AC - Continue analgesia, antiemetics prn - Agree with antibiotics - Rest of care per primary team Thank you for the opportunity to participate in this patient's care! Will continue to follow along with you. Patient seen by and discussed with Dr. Cordova, gastroenterology, hepatology and nutrition attending physician. Cosigned by Daryn Cordova MD at 05/23/2022 4:54 AM EST Associated attestation - Daryn Cordova MD - 05/23/2022 4:54 AM EST I saw and evaluated the patient with the resident/fellow. I discussed the case with the resident/fellow and agree with the findings and plan as documented. * Progress Notes - Edi Daily MD - 05/21/2022 8:49 AM EST 05/21/22 Trudi Blair HPI 66yoF w/ hx of GERD, chronic pain, hiatal hernia Edited by: Nasrin Johansen MD at 05/21/2022 0220 A 14 point review of systems was reviewed and is negative except as mentioned in the HPI. Vital signs: Vitals: 05/21/22 0317 BP: 98/62 Pulse: 66 Resp: 15 Temp: 36.4 ??C (97.6 ??F) SpO2: 95% Physical Exam GEN: no apparent distress, well nourished HENT: atraumatic, normocephalic EYES: no scleral icterus, no visible conjunctival hemorrhage RESP: no respiratory distress, symmetric chest rise CV: appears well perfused, normal rate ABD: nontender, nondistended, no obvious masses, no evidence of peritonitis MSK/EXT: no apparent deformities, strength/tone normal : deferred NEURO: alert and oriented, no focal CN deficits PSYCH: appropriate affect, mood congruent, interactive No intake or output data in the 24 hours ending 05/21/22 0850 Lines/Drains/Tubes: Patient Lines/Drains/Airways Status Active Airway None Output by Drain (mL) 05/19/22 0700 - 05/19/22 1859 05/19/22 1900 - 05/20/22 0659 05/20/22699 - 05/20/22 1859 05/20/22 190 - 05/21/22 0659 05/21/22 0700 - 05/21/22 0850 Patient has no LDAs of requested type attached. Labs in last 18 hours: CBC WBC 10.34 (H) Hb 11.4 Plt 151 (L) Hct 35.6 ANC ?? INR ??, PTT ??, Anti-Xa ?? MCV 90 BMP Na 134 (L) Cl 104 BUN 14 Glu 113 (H) K 4.0 Co2 20 (L) Cr 1.00 Ca 8.4 (L) iCa ?? Mg 1.7 (L), Phos 2.5 Lactate ?? LFT AST 489 (H) AlkPhos 221 (H) T Prot 5.1 (L) ALK 217 (H) Bili 2.2 (H) Alb ?? D.Bili ?? Lab Trends: H/H Results from last 7 days Lab Units 05/21/22 0120 HEMOGLOBIN g/dL 11.4 HEMATOCRIT % 35.6 INR Cr Results from last 7 days Lab Units 05/21/22 0120 CREATININE mg/dL 1.00 Medications reviewed. Vital signs reviewed. Labs reviewed. Radiography reviewed. 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, sequela Failed total knee replacement (CMS/HCC) Knee pain Receiving intravenous antibiotic treatment as outpatient Chronic pain disorder Staphylococcal arthritis of right knee (CMS/HCC) Overview Signed 12/24/2020 11:38 AM by Yousif Amaral MD Added automatically from request for surgery [id number] Present on Admission: Choledocholithiasis with acute cholecystitis Plan: Fu GI Recs Will unhold heparin Edited by: Edi Daily MD at 05/21/2022 0849 Edi Daily MD Cosigned by Irma Reynoso MD at 05/22/2022 9:07 AM EST Associated attestation - Irma Reynoso MD - 05/22/2022 9:07 AM EST I saw and evaluated the patient with the resident/fellow. I discussed the case with the resident/fellow and agree with the findings and plan as documented. * H&P - Nasrin Johansen MD - 05/20/2022 11:32 PM EST Images from the original note were not included. Chief Concern & History Of Present Illness Trudi Blair is a 66 y.o. female with a past medical history of chronic pain, recurrent MRSA infections, and GERD with a hiatal hernia presenting with epigastric/right upper quadrant pain. Patient reports that earlier today she began to feel nauseous, and soon afterwards began to have epigastric pain that radiated to her right upper quadrant. [facility] of the abdomen and pelvis demonstrated pericholecystic fluidand thickening of the gallbladder wall consistent with acute cholecystitis. MRCP demonstrated dilation of the common bile duct with an intraluminal filling defect consistent with choledocholithiasis.She had a slight leukocytosis with a WBC of 12.2, an elevated T bili of 1.5. A request was made to transfer the patient to for possible ERCP. Prior to transfer, the patient was given 750mg levofloxacin and 1g ceftriaxone. Prior to today, patient denies any similar episodes epigastric pain. She does note that she has hadintermittent nausea overnight, but she suspects that this is related to her GERD. She denied any fevers, chills, or other systemic symptoms. Past Medical History She has a past medical history of Anxiety, Cancer (CMS/HCC), Chronic pain disorder, Delayed emergence from general anesthesia, Diverticulosis, GERD (gastroesophageal reflux disease), Hiatal hernia, History of transfusion, Hypercholesteremia, Hypertension, Joint pain, and Osteoarthritis. Surgical History She has a past surgical history that includes Back surgery (N/A); Hysterectomy (N/A); Foot surgery (Bilateral); Knee surgery (Bilateral); Knee Arthroplasty (Bilateral); Dilation and curettage of uterus; and Spinal fusion. Patient also reports that she has had a simultaneous tubal ligation and appendectomy. Family History Family History Problem Relation Name Age of Onset Hypertension Other Other cancer Other Social History She reports that she has never smoked. She has never used smokeless tobacco. She reports that she does not drink alcohol and does not use drugs. Occupational History Employer: No address on file. Travel History Relevant International Travel History: Travel Screening No screening recorded since 05/19/228 Travel History Travel since 04/19/22 No documented travel since 04/19/22 Relevant Domestic Travel History: n/a Immunizations not reviewed VACCINE/DOSE Flu Tetanus Pneumovax Shingles Allergies Clarithromycin Medications Current Facility-Administered Medications Medication Dose Route Frequency Provider Last Rate Last Admin [START ON 05/21/2022] acetaminophen (Tylenol) tablet 1,000 mg 1,000 mg Oral q6h TAJ Johansen MD dextrose 5 % and lactated Ringer's infusion 75 mL/hr Intravenous Continuous Nasrin Johansen MD 75 mL/hr at 05/20/22 2329 75 mL/hr at 05/20/22 2329 heparin (porcine) injection 5,000 Units 5,000 Units Subcutaneous q8h TAJ Johansen MD methocarbamol (Robaxin) tablet 500 mg 500 mg Oral q8h Nasrin Johansen MD ondansetron (Zofran) injection 4 mg 4 mg Intravenous q6h PRN Nasrin Johansen MD oxyCODONE (Roxicodone) immediate release tablet 5 mg 5 mg Oral q4h PRN Nasrin Johansen MD Or oxyCODONE (Roxicodone) immediate release tablet 10 mg 10 mg Oral q4h PRN Nasrin Johansen MD sodium chloride 0.9 % flush 10 mL 10 mL Intravenous q12h PRJeannie Johansen MD And sodium chloride 0.9 % flush 10 mL 10 mL Intravenous DON Johansen MD Review of Systems 14 point review of systems was obtained and is negative unless as stated above in HPI Physical Exam Vitals reviewed. Constitutional: General: She is not in acute distress. Appearance: She is obese. She is not toxic-appearing. HENT: Head: Normocephalic. Eyes: Extraocular Movements: Extraocular movements intact. Pupils: Pupils are equal, round, and reactive to light. Cardiovascular: Rate and Rhythm: Normal rate. Abdominal: General: Abdomen is flat. There is no distension. Palpations: Abdomen is soft. Tenderness: There is abdominal tenderness (Epigastric tenderness, mildly TTP in RUQ). There is no guarding or rebound. Musculoskeletal: General: Normal range of motion. Cervical back: Normal range of motion. Comments: Right AKA Skin: General: Skin is warm and dry. Capillary Refill: Capillary refill takes less than 2 seconds. Neurological: General: No focal deficit present. Mental Status: She is alert and oriented to person, place, and time. Mental status is at baseline. Psychiatric: Mood and Affect: Mood normal. Behavior: Behavior normal. Last Recorded Vitals Blood pressure 100/62, pulse 75, temperature 36.8 ??C (98.2 ??F), resp. rate 16, SpO2 98 %. Relevant Results CT abdomen pelvis 05/20/2022 Impression: Distended gallbladder with gallstones and wall thickening or pericholecystic fluid as well as new biliary ductal dilation, cholecystitis is a consideration. Long segment distal colon wall thickening as detailed above, favor colitis. Large hiatal hernia, increased in size since prior. MRCP 05/20/22 Impression: Cholelithiasis, slightly thickened gallbladder wall, distended gallbladder with pericholecystic fluid, findings suggest acute cholecystitis Mildly dilated common duct 9 mm with intraluminal 6 mm filling defect in the distal duct, likely choledocholithiasis with biliary obstruction. Motion artifacts, limiting the study. Additional nonemergency and chronic findings, including diverticulosis coli, spinal degenerative changes, multilevel disc disease and spondylosis, prominent hiatal hernia. Lab Results Component Value Date GLUCOSE 113 (H) 05/21/2022 BUN 14 05/21/2022 CREATININE 1.00 05/21/2022 BCR 14 05/21/2022 NA 134 (L) 05/21/2022 K 4.0 05/21/2022 CL 104 05/21/2022 CO2 20 (L) 05/21/2022 CA 9.4 04/22/2020 ALBUMIN 3.2 (L) 05/21/2022 ALKPHOS 221 (H) 05/21/2022 BILITOT 2.2 (H) 05/21/2022 Lab Results Component Value Date WBC 10.34 (H) 05/21/2022 HGB 11.4 05/21/2022 HCT 35.6 05/21/2022 MCV 90 05/21/2022 PLT 151 (L) 05/21/2022 Assessment/Plan Principal Problem: Choledocholithiasis with acute cholecystitis Trudi Blair is a 66yoF w/ PMH of chronic pain, recurrent MRSA infections, and GERD with a hiatalhernia presenting as a direct admission [facility] with epigastric/right upperquadrant pain. Imaging at outside hospital consistent with acute cholecystitis and choledocholithiasis. On arrival, patient is hemodynamically stable and afebrile; outside labs demonstrate a mild leuk ocytosis and elevated T bili but are otherwise reassuring. - admit to [facility] floor - nothing by mouth, maintenance IV fluids - Zosyn - multimodal pain control, symptomatic management of nausea - restart home medicines as appropriate - plan to consult GI first thing in the morning for possible ERCP Nasrin Johansen MD General Surgery, PGY-1 [phone] Cosigned by Artemio Dorsey MD at 05/26/2022 7:19 AM EST Associated attestation - Artemio Dorsey MD - 05/26/2022 7:19 AM EST I saw and evaluated the patient with the resident/fellow. I discussed the case with the resident/fellow and agree with the findings and plan as documented. documented in this encounter Plan of Treatment Not on file documented as of this encounter Procedures Procedure Name Priority Date/Time Associated Diagnosis Comments POCT GLUCOSE METER UNSOLICITED RESULTS Routine 05/23/2022 5:57 AM EST CBC W/O DIFFERENTIAL Routine 05/23/2022 2:38 AM EST PHOSPHORUS, PLASMA Routine 05/23/2022 2: 38 AM EST MAGNESIUM, PLASMA Routine 05/23/2022 2:3 8 AM EST COMPREHENSIVE METABOLIC PANEL, PLASMA Routine 05/23/2022 2:38 AM EST POCT GLUCOSE METER UNSOLICITED RESULTS Routine 05/23/2022 1:13 AM EST POCT GLUCOSE METER UNSOLICITED RESULTS Routine 05/22/2022 6:42 PM EST SURGICAL PATHOLOGY EXAM Routine 05/22/2022 1:36 PM EST Choledocholithiasis with acute cholecystitis CHOLECYSTECTOMY, LAPAROSCOPIC 05/22/2022 11:38 AM EST Choledocholithiasis with acute cholecystitis CBC W/O DIFFERENTIAL Routine 05/22/2022 4:17 AM EST PHOSPHORUS, PLASMA Routine 05/22/2022 4: 17 AM EST MAGNESIUM, PLASMA Routine 05/22/2022 4:1 7 AM EST LIPASE, PLASMA Add-On 05/22/2022 4:17 AM EST COMPREHENSIVE METABOLIC PANEL, PLASMA Routine 05/22/2022 4:17 AM EST POCT GLUCOSE METER UNSOLICITED RESULTS Routine 05/21/2022 8:22 PM EST ERCP Routine 05/21/2022 1:36 PM EST Choledocholithiasis with acute cholecystitis FL ERCP Routine 05/21/2022 1:33 PM EST POCT GLUCOSE METER UNSOLICITED RESULTS Routine 05/21/2022 10:50 AM EST POCT GLUCOSE METER UNSOLICITED RESULTS Routine 05/21/2022 6:01 AM EST SARS COV-2/COVID-19 BY PCR Routine 05/21/2022 1:24 AM EST MULTI DRUG RESISTANCE TEST Routine 05/21/2022 1:24 AM EST LACTATE, VENOUS Routine 05/21/2022 1:20 AM EST CBC W/O DIFFERENTIAL Routine 05/21/2022 1:20 AM EST PHOSPHORUS, PLASMA Routine 05/21/2022 1: 20 AM EST MAGNESIUM, PLASMA Routine 05/21/2022 1:2 0 AM EST COMPREHENSIVE METABOLIC PANEL, PLASMA Routine 05/21/2022 1:20 AM EST documented in this encounter Results * ERCP [...] Staff Role Val Rodriguez, LISBETH Endo Nurse Deanna Dong CRNA [employer] Zechariah Burnett MD Anesthesiologist Jennifer James RN Endo Nurse Daryn Cordova MD Proceduralist Unknown Endo Nurse 1 [...] Gastric biopsies Tissue Stomach SURGICAL PATHOLOGY EXAM Daryn Cordova MD 07/16/2022 1123 Findings One occluded [...] prepyloric region, sent sample for histology analysis. Irma Reynoso MD GI PROCEDURE ORDERABLES Fi nal Result * (ABNORMAL) POCT glucose meter (05/23/2022 5:57 AM EST) POCT Glucose 105(H) 74 - 99 mg/dL 05/23/2022 6:00 AM EST [facility] Comment:Accuracy of a glucos e result obtained from a capillary whole blood specimen relies upon adequate, non-compromised capillary blood flow. If the capillary glucose result is not consistent with the patient's clinical signs and symptoms, glucose testing should be repeated with either an arterial or venous sample on the glucometer or sent to the main labortory for testing. Comment 05/23/2022 6:00 AM EST [facility] Probation Manager ID Estela Landers 05/23/2022 6:00 AM EST [facility] Device ID [id number] 05/23/2022 6:00 AM EST [facility] Specimen Type POC Capillary 05/23/2022 6:00 AM EST [facility] Blood Capillary blood specimen / Unknown 05/23/2022 5:57 AM EST 05/23/2022 6:00 AM EST Irma Reynoso MD LAB POINT OF CARE TEST DOCKED DEVICE UNSOLICITED RESULTS Final Result [facility] [address] [place] [address] * Phosphorus, Plasma (05/23/2022 2:38 AM EST) Phosphorus, Plasma 2.9 2.5 - 4.5 mg/dL 05/23/2022 3:23 AM EST [facility] Blood Venous blood specimen / Unknown Venipuncture / Unknown 05/23/2022 2:38 AM EST 05/23/2022 2:50 AM EST us Irma Reynoso MD LAB BLOOD ORDERABLES Final Result Performing Organization Address [facility] Co de Phone Number [facility] [address] [place] [address] * (ABNORMAL) Magnesium, Plasma (05/23/2022 2:38 AM EST) Pathologist [facility] Magnesium, Plasma 1.8(L) 1.9 - 2.4 mg/dL 05/23/2022 3:23 AM EST [facility] Blood Venous blood specimen / Unknown Venipuncture / Unknown 05/23/2022 2:38 AM EST 05/23/2022 2:50 AM EST us Irma Reynoso MD LAB BLOOD ORDERABLES Final Result Performing Organization Address [facility] de Phone Number [facility] [address] [place] [address] * (ABNORMAL) CBC W/O Differential (05/23/2022 2:38 AM EST) WBC Count 11.41(H) 3.70 - 10.30 10*3/uL LAB HEMATOLOGY METHOD 05/23/2022 2:59 AM EST [facility] RBC Count 3.73(L) 3.90 - 5.20 10*6/uL LAB HEMATOLOGY METHOD 05/23/2022 2:59 AM EST [facility] HGB 11.0(L) 11.2 - 15.7 g/dL LAB HEMATOLOGY METHOD 05/23/2022 2:59 AM EST [facility] HCT 33.3(L) 34.0 - 45.0 % LAB HEMATOLOGY METHOD 05/23/2022 2:59 AM EST [facility] Platelet Count 142(L) 155 - 369 10*3/uL LAB HEMATOLOGY METHOD 05/23/2022 2:59 AM EST [facility] MCV 89 79 - 98 fL LAB HEMATOLOGY METHOD 05/23/2022 2:59 AM EST [facility] MCH 29.5 26.0 - 32.0 pg LAB HEMATOLOGY METHOD 05/23/2022 2:59 AM EST [facility] MCHC 33.0 30.7 - 35.5 g/dL LAB HEMATOLOGY METHOD 05/23/2022 2:59 AM EST [facility] RDW 14.1 11.5 - 14.5 % LAB HEMATOLOGY METHOD 05/23/2022 2:59 AM EST [facility] MPV 10.6 8.8 - 12.5 fL LAB HEMATOLOGY METHOD 05/23/2022 2:59 AM EST [facility] nRBC 0.0 <=0.0 per 100 WBCs LAB HEMATOLOGY METHOD 05/23/2022 2:59 AM EST [facility] Blood Venous blood specimen / Unknown Venipuncture / Unknown 05/23/2022 2:38 AM EST 05/23/2022 2:51 AM EST us Irma Reynoso MD LAB BLOOD ORDERABLES Final Result Performing Organization Address City/State/[facility] de Phone Number [facility] [address] [place] [address] * (ABNORMAL) Comprehensive Metabolic Panel, Plasma (05/23/2022 2:38 AM EST) Glucose, Plasma 105(H) 74 - 99 mg/dL 05/23/2022 3:23 AM EST [facility] BUN, Plasma 12 8 - 23 mg/dL 05/23/2022 3:23 AM [facility] Creatinine, Plasma 1.06 0.60 - 1.10 mg/dL 05/23/2022 3:23 AM EST [facility] BUN/Creatinine Ratio 11 05/23/2022 3:23 AM EST [facility] Sodium, Plasma 134(L) 136 - 145 mmol/L 05/23/2022 3:23 AM EST [facility] Potassium, Plasma 3.8 3.7 - 4.8 mmol/L 05/23/2022 3:23 AM EST [facility] Chloride, Plasma 103 97 - 107 mmol/L 05/23/2022 3:23 AM EST [facility] LAB CO2, Plasma 18(L) 22 - 29 mmol/L 05/23/2022 3:23 AM EST [facility] Anion Gap 13 6 - 16 mmol/L 05/23/2022 3:23 AM EST [facility] Total Calcium, Plasma 8.2(L) 8.9 - 10.2 mg/dL 05/23/2022 3:23 AM EST [facility] Total Protein 4.9(L) 6.3 - 7.9 g/dL 05/23/2022 3:23 AM EST [facility] Albumin, Plasma 2.6(L) 3.5 - 5.2 g/dL 05/23/2022 3:23 AM EST [facility] AST, Plasma 96(H) 9 - 36 U/L 05/23/2022 3:23 AM EST [facility] ALT, Plasma 83(H) 8 - 33 U/L 05/23/2022 3:23 AM EST [facility] Alkaline Phosphatase, Plasma 160(H) 46 - 142 U/L 05/23/2022 3:23 AM EST [facility] Total Bilirubin, Plasma 0.7 0.2 - 1.1 mg/dL 05/23/2022 3:23 AM EST [facility] eGFRcr 57.7 mL/min/1.7 3m*2 05/23/2022 3:23 AM EST [facility] Comment: Reported eGFRcr in mL/min/1.73m2 is based the CKD-EPI 2021 equation that does not use a race coefficient. Effective 10/29/21 our laboratory changed the eGFR calculation to the CKD-EPI 2021 equation from the previously reported eGFR, based on the MDRD equation. ??For comparisons between the two equations, please see laboratory website: ??[email or web address] Blood Venous blood specimen / Unknown Venipuncture / Unknown 05/23/2022 2:38 AM EST 05/23/2022 2:50 AM EST us Irma Reynoso MD LAB BLOOD ORDERABLES Final Result [facility] [address] [place] [address] * (ABNORMAL) POCT glucose meter (05/23/2022 1:13 AM EST) POCT Glucose 104(H) 74 - 99 mg/dL 05/23/2022 1:15 AM EST [facility] Comment:Accuracy of a glucos e result obtained from a capillary whole blood specimen relies upon adequate, non-compromised capillary blood flow. If the capillary glucose result is not consistent with the patient's clinical signs and symptoms, glucose testing should be repeated with either an arterial or venous sample on the glucometer or sent to the main labortory for testing. Comment 05/23/2022 1:15 AM EST [facility] Probation Manager ID Estela Landers 05/23/2022 1:15 AM EST [facility] Device ID [id number] 05/23/2022 1:15 AM EST [facility] Specimen Type POC Capillary 05/23/2022 1:15 AM EST [facility] Blood Capillary blood specimen / Unknown 05/23/2022 1:13 AM EST 05/23/2022 1:15 AM EST us Irma Reynoso MD LAB POINT OF CARE TEST DOCKED DEVICE UNSOLICITED RESULTS Final Result Performing Organization Address City/[facility] Phone Number [facility] [address] [place] [address] * POCT glucose meter (05/22/2022 6:42 PM EST) [facility] POCT Glucose 97 74 - 99 mg/dL 05/22/2022 6:45 PM EST [facility] Comment:Accuracy of a glucos e result obtained from a capillary whole blood specimen relies upon adequate, non-compromised capillary blood flow. If the capillary glucose result is not consistent with the patient's clinical signs and symptoms, glucose testing should be repeated with either an arterial or venous sample on the glucometer or sent to the main labortory for testing. Comment 05/22/2022 6:45 PM EST [facility] Probation Manager ID Mela Arnold 05/22/2022 6:45 PM EST [facility] Device ID [id number] 05/22/2022 6:45 PM EST [facility] Specimen Type POC Capillary 05/22/2022 6:45 PM EST [facility] Blood Capillary blood specimen / Unknown 05/22/2022 6:42 PM EST 05/22/2022 6:45 PM EST us Irma Reynoso MD LAB POINT OF CARE TEST DOCKED DEVICE UNSOLICITED RESULTS Final Result [facility] [address] [place] [address] * Surgical Pathology Exam (05/22/2022 1:36 PM EST) Case Report Surgical Pathology ?Case: [id number] ? Authorizing Provider: ??Irma Reynoso MD ? Collected: ? 05/22/2022 1336 ? Ordering Location: ? [facility] ? Received: ?05/22/2022 1403 ? Pathologist: ? Patricia Cedeno MD ? Specimen: ?Gallbladder, gallbladder for permanent ? 05/26/2022 7:14 AM EST [facility] Final Diagnosis GALLBLADDER, EXCISION: ACUTE AND CHRONIC CHOLECYSTITIS WITH CHOLELITHIASIS. 05/26/2022 7:14 AM EST [facility] Clinical Information Choledocholithiasis with acute cholecystitis [K80.42] 05/26/2022 7:14 AM EST [facility] Gross Description A. GALLBLADDER FOR PERMANENT The specimen is received in formalin labeled gallbladder , and consists of an 8.7 x 3.2 x 1.8 cm intact gallbladder. The serosa is pink-esparza, smooth and glistening. The cystic duct is patent. The mucosa is red-esparza and velvety. The wall thickness measures up to 0.6 cm. There are two friable black stones present ranging from 0.6-0.8 cm. Cartography Teacher sections are submitted in cassette A1 to include the cystic duct, fundus and body. Lana Porras 05/26/2022 7:14 AM EST [facility] Tissue Gallbladder structure / Unknown 05/22/2022 1:36 PM EST 05/22/2022 2:03 PM EST Comment:Pre-op diagnosis: Choledocholithiasis with acute cholecystitis [K80.42] Irma Reynoso MD LAB PATHOLOGY ORDERABLES F inal Result Performing Organization Address [facility] Co de Phone Number [facility] [address] [place] [address] * (ABNORMAL) Lipase (05/22/2022 4:17 AM EST) Lipase, Plasma 270(H) 19 - 63 U/L 05/22/2022 8:25 AM EST [facility] Blood Venous blood specimen / Unknown Venipuncture / Unknown 05/22/2022 4:17 AM EST 05/22/2022 4:49 AM EST Irma Reynoso MD LAB BLOOD ORDERABLES Final Result Performing Organization Address [facility] de Phone Number [facility] [address] [place] [address] * (ABNORMAL) Phosphorus, Plasma (05/22/2022 4:17 AM EST) Phosphorus, Plasma 2.4(L) 2.5 - 4.5 mg/dL 05/22/2022 5:35 AM EST [facility] Blood Venous blood specimen / Unknown Venipuncture / Unknown 05/22/2022 4:17 AM EST 05/22/2022 4:49 AM EST Anna Veliz APRN LAB BLOOD ORDERABLES Maria E l Result Performing Organization Address City/[facility]/ZIP Co de Phone Number [facility] [address] [place] [address] * Magnesium, Plasma (05/22/2022 4:17 AM EST) Magnesium, Plasma 2.1 1.9 - 2.4 mg/dL 05/22/2022 5:35 AM EST [facility] Blood Venous blood specimen / Unknown Venipuncture / Unknown 05/22/2022 4:17 AM EST 05/22/2022 4:49 AM EST us Anna E Keren CAN FILLING AND CLOSING MACHINE TENDER LAB BLOOD ORDERABLES Maria E l Result [facility] [address] [place] [address] * (ABNORMAL) CBC W/O Differential (05/22/2022 4:17 AM EST) WBC Count 7.35 3.70 - 10.30 10*3/uL LAB HEMATOLOGY METHOD 05/22/2022 5:03 AM EST [facility] RBC Count 4.06 3.90 - 5.20 10*6/uL LAB HEMATOLOGY METHOD 05/22/2022 5:03 AM EST [facility] HGB 11.9 11.2 - 15.7 g/dL LAB HEMATOLOGY METHOD 05/22/2022 5:03 AM EST [facility] HCT 36.7 34.0 - 45.0 % LAB HEMATOLOGY METHOD 05/22/2022 5:03 AM EST [facility] Platelet Count 141(L) 155 - 369 10*3/uL LAB HEMATOLOGY METHOD 05/22/2022 5:03 AM EST [facility] MCV 90 79 - 98 fL LAB HEMATOLOGY METHOD 05/22/2022 5:03 AM EST [facility] MCH 29.3 26.0 - 32.0 pg LAB HEMATOLOGY METHOD 05/22/2022 5:03 AM EST [facility] MCHC 32.4 30.7 - 35.5 g/dL LAB HEMATOLOGY METHOD 05/22/2022 5:03 AM EST [facility] RDW 14.1 11.5 - 14.5 % LAB HEMATOLOGY METHOD 05/22/2022 5:03 AM EST [facility] MPV 10.7 8.8 - 12.5 fL LAB HEMATOLOGY METHOD 05/22/2022 5:03 AM EST [facility] nRBC 0.0 <=0.0 per 100 WBCs LAB HEMATOLOGY METHOD 05/22/2022 5:03 AM EST [facility] Blood Venous blood specimen / Unknown Venipuncture / Unknown 05/22/2022 4:17 AM EST 05/22/2022 4:55 AM EST us Anna Veliz CAN FILLING AND CLOSING MACHINE TENDER LAB BLOOD ORDERABLES Maria E l Result [facility] [address] [place] [address] * (ABNORMAL) Comprehensive Metabolic Panel, Plasma (05/22/2022 4:17 AM EST) Glucose, Plasma 78 74 - 99 mg/dL 05/22/2022 5:35 AM [facility] BUN, Plasma 11 8 - 23 mg/dL 05/22/2022 5:35 AM [facility] Creatinine, Plasma 1.13(H) 0.60 - 1.10 mg/dL 05/22/2022 5:35 AM EST [facility] BUN/Creatinine Ratio 10 05/22/2022 5:35 AM [facility] Sodium, Plasma 135(L) 136 - 145 mmol/L 05/22/2022 5:35 AM [facility] Potassium, Plasma 3.5(L) 3.7 - 4.8 mmol/L 05/22/2022 5:35 AM [facility] Chloride, Plasma 104 97 - 107 mmol/L 05/22/2022 5:35 AM [facility] CO2, Plasma 17(L) 22 - 29 mmol/L 05/22/2022 5:35 AM [facility] Anion Gap 14 6 - 16 mmol/L 05/22/2022 5:35 AM [facility] Total Calcium, Plasma 8.2(L) 8.9 - 10.2 mg/dL 05/22/2022 5:35 AM EST [facility] Total Protein 5.2(L) 6.3 - 7.9 g/dL 05/22/2022 5:35 AM [facility] Albumin, Plasma 2.9(L) 3.5 - 5.2 g/dL 05/22/2022 5:35 AM [facility] AST, Plasma 158(H) 9 - 36 U/L 05/22/2022 5:35 AM EST [facility] ALT, Plasma 116(H) 8 - 33 U/L 05/22/2022 5:35 AM EST [facility] Alkaline Phosphatase, Plasma 204(H) 46 - 142 U/L 05/22/2022 5:35 AM EST [facility] Total Bilirubin, Plasma 1.6(H) 0.2 - 1.1 mg/dL 05/22/2022 5:35 AM EST [facility] eGFRcr 53.4 mL/min/1.7 3m*2 05/22/2022 5:35 AM EST [facility] Comment: Reported eGFRcr in mL/min/1.73m2 is based the CKD-EPI 2020 equation that does not use a race coefficient. Effective 10/29/21 our laboratory changed the eGFR calculation to the CKD-EPI 2020 equation from the previously reported eGFR, based on the MDRD equation. ??For comparisons between the two equations, please see laboratory website: ??[email or web address] Blood Venous blood specimen / Unknown Venipuncture / Unknown 05/22/2022 4:17 AM EST 05/22/2022 4:49 AM EST us Anna Veliz CAN FILLING AND CLOSING MACHINE TENDER LAB BLOOD ORDERABLES Maria E l Result [facility] [address] [place] [address] * POCT glucose meter (05/21/2022 8:22 PM EST) [facility] POCT Glucose 86 74 - 99 mg/dL 05/21/2022 8:25 PM EST [facility] Comment:Accuracy of a glucos e result obtained from a capillary whole blood specimen relies upon adequate, non-compromised capillary blood flow. If the capillary glucose result is not consistent with the patient's clinical signs and symptoms, glucose testing should be repeated with either an arterial or venous sample on the glucometer or sent to the main labortory for testing. Comment 05/21/2022 8:25 PM EST [facility] Probation Manager ID Zainab Headley 05/21/2022 8:25 PM EST [facility] Device ID [id number] 05/21/2022 8:25 PM EST [facility] Specimen Type POC Capillary 05/21/2022 8:25 PM EST [facility] Blood Capillary blood specimen / Unknown 05/21/2022 8:22 PM EST 05/21/2022 8:25 PM EST Artemio Dorsey MD LAB POINT OF CAR E TEST DOCKED DEVICE UNSOLICITED RESULTS Final Result Performing Organization Address City/State/[facility] Co de Phone Number [facility] [address] [place] [id number] * ERCP 1 - Grade 1 (05/21/2022 1:36 PM EST) Anatomical Region Laterality Modality Endoscopy Narrative 05/27/2022 11:56 AM EST Table formatting from the original result was not included. Impression The director corporate sales film appeared normal. The patient was in the prone position. The duodenoscope was passed under direct vision through the mouth and advanced to the second portion of the duodenum. Single large diverticulum in the ampullary region The major papilla was siletz tribe. Located on the rim of the diverticulum. The common bile duct was deeply cannulated using a traction sphincterotome with 450 cm x 0.025 straight guidewire. Cannulation was not difficult and no bleeding was observed. Contrast was injected. Precut access technique using sphincterotomy. 10 mm biliary and major papilla sphincterotomy was performed using a sphincterotome. No bleeding was noted at the procedure site. The wire was advanced into the right main hepatic duct and sphincterotome was exchanged for extraction balloon. Multiple sweeps were performed in the common bile duct, common hepatic duct and bifurcation of the hepatic duct using a 8 mm and 11 mm balloon. Stones were removed, achieving complete clearance. Multiple 2-6 mm pigmented stones were cleared from the duct. A cholangiogram was performed using a balloon occlusion technique. ??I personally interpreted the bile duct images. ??Ductal flow of contrast was adequate. The intrahepatic ducts were normal in caliber. The common hepatic duct and common bile duct were 6 mm in diameter, smooth, and tapered to the biliary orifice. No filling defects. The cystic duct partially filled with contrast. One Viabil with holes 10 mm x 6 cm partially covered metal stent was placed in the common bile duct One 7 Fr x 7 cm double pigtail plastic stent was placed in the common hepatic duct There was excellent drainage of bile and contrast at the end of the procedure. The duodenoscope was withdrawn from the patient at the end of procedure. Recommendation Repeat ERCP in 8 weeks for stent removal Agree with surgical evaluation for possible cholecystectomy Return to [facility] for ongoing care Continue previous medications, no anticoagulation restrictions Restart previous diet immediately Monitor for post-procedure complications abdominal pain, fever, gastrointestinal bleeding and call contract administration manager GI if present Indication Choledocholithiasis with acute cholecystitis Medications See anesthesia record for anesthesia administered medications. Staff Staff Role Mercedes Graves CRNA [employer] Rocco Johnson MD Proceduralist Benjamin Lynn MD Anesthesiologist Desmond Murray Endo Nurse Daryn Cordova MD Proceduralist Daryn Polo, LISBETH Endo Nurse Shira Callahan RN Endo Nurse Unknown Endo Nurse 1 Endo Nurse Procedure Events Event Event Time In Facility 05/21/2022 10:45 AM In Preprocedure 05/21/2022 10:45 AM Preprocedure Complete 05/21/2022 12:44 PM Anesthesia Start 05/21/2022 12:45 PM In Room 05/21/2022 12:44 PM Anesthesia Ready 05/21/2022 12:57 PM Procedure Start 05/21/2022 ??1:02 PM Procedure End 05/21/2022 ??1:27 PM Out of Room 05/21/2022 ??1:36 PM In Recovery (Phase I Care Start) ??05/21/2022 ??1:40 PM Anesthesia Stop 05/21/2022 ??1:45 PM Phase I Care Complete 05/21/2022 ??2:31 PM Out of Recovery 05/21/2022 ??2:31 PM Phase II Care Start 05/21/2022 ??2:31 PM Phase II Care Complete 05/21/2022 ??3:04 PM Out of Phase II 05/21/2022 ??3:45 PM Procedural Charting Complete 05/21/2022 ??3:45 PM Preprocedure A history and physical has been [...] to cannulate the bile duct. Attestation I was present for the entire procedure Specimens No specimens were documented in this log. Findings The director corporate sales film appeared normal. The patient was in the prone position. The duodenoscope was passed under direct vision through the mouth and advanced to the second portion of the duodenum. 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 The major papilla was siletz tribe. Located on the rim of the diverticulum. The common bile duct was deeply cannulated using a traction sphincterotome with 450 cm x 0.025 straight guidewire. Cannulation was not difficult and no bleeding was observed. Contrast was injected. Precut access technique using sphincterotomy. 10 mm biliary and major papilla sphincterotomy was performed using a sphincterotome. No bleeding was noted at the procedure site. The wire was advanced into the right main hepatic duct and sphincterotome was exchanged for extraction balloon. Multiple sweeps were performed in the common bile duct, common hepatic duct and bifurcation of the hepatic duct using a 8 mm and 11 mm balloon. Stones were removed, achieving complete clearance. Multiple 2-6 mm pigmented stones were cleared from the duct. A cholangiogram was performed using a balloon occlusion technique. ??I personally interpreted the bile duct images. ??Ductal flow of contrast was adequate. The intrahepatic ducts were normal in caliber. The common hepatic duct and common bile duct were 6 mm in diameter, smooth, and tapered to the biliary orifice. No filling defects. The cystic duct partially filled with contrast. One Viabil with holes 10 mm x 6 cm partially covered metal stent was placed in the common bile duct. One 7 Fr x 7 cm double pigtail plastic stent was placed in the common hepatic duct. There was excellent drainage of bile and contrast at the end of the procedure. The duodenoscope was withdrawn from the patient at the end of procedure. us Irma Reynoso MD GI PROCEDURE ORDERABLES Fi nal Result * FL ERCP (05/21/2022 1:33 PM EST) Anatomical Region Laterality Modality Radio Fluoroscop y Impressions 05/21/2022 4:03 PM EST Normal caliber intrahepatic biliary ducts. Common hepatic duct and common bile duct measure 6 mm in diameter. No filling defects. The cystic duct partially filled with contrast. Metal stent placed in the common bile duct. Double pigtail plastic stent placed in the common hepatic duct. Please see separate procedural note by Endoscopist for additional findings and details. CRITICAL RESULT: ?? No. COMMUNICATION: Per this written report. Approved by Aric Perkins DO on 05/21/2022 3:46 PM By electronically signing this report, I, the attending physician, attest that I have personally reviewed the images/data for the above examination(s) and agree with the final edited report. Dictated by Aric Perkins DO on 05/21/2022 3:46 PM Signed by Vikash Aburto MD on 05/21/2022 4:03 PM Narrative 05/21/2022 4:03 PM EST Exam/Procedure: FL ERCP ordered by DARYN CORDOVA [id number] CLINICAL INDICATION: ERCP TECHNIQUE: 8 retained images from ERCP performed by Physician Endoscopist. Fluoroscopy Time: 2.9 minutes. COMPARISON: CT abdomen pelvis 05/20/2022, MR abdomen 05/20/2022 FINDINGS: Rectangular Tank Cooper: Lumbar fusion hardware. Biliary Ducts: Normal caliber intrahepatic biliary ducts. Common hepatic duct and common bile duct measure 6 mm in diameter. No filling defects. The cystic duct partially filled with contrast. Metal stent placed in the common bile duct. Double pigtail plastic stent placed in the common hepatic duct. Gallbladder: Not evaluated. Pancreatic Ducts: Not evaluated. Procedure Note Vikash Aburto MD - 05/21/2022 Exam/Procedure: FL ERCP ordered by DARYN CORDOVA [id number] CLINICAL INDICATION: ERCP TECHNIQUE: 8 retained images from ERCP performed by Physician Endoscopist. Fluoroscopy Time: 2.9 minutes. COMPARISON: CT abdomen pelvis 05/20/2022, MR abdomen 05/20/2022 FINDINGS: Rectangular Tank Cooper: Lumbar fusion hardware. Biliary Ducts: Normal caliber intrahepatic biliary ducts. Common hepaticduct and common bile duct measure 6 mm in diameter. No filling defects.The cystic duct partially filled with contrast. Metal stent placed in thecommon bile duct. Double pigtail plastic stent placed in the commonhepatic duct. Gallbladder: Not evaluated. Pancreatic Ducts: Not evaluated. IMPRESSION: Normal caliber intrahepatic biliary ducts. Common hepatic duct and commonbile duct measure 6 mm in diameter. No filling defects. The cystic ductpartially filled with contrast. Metal stent placed in the common bile duct. Double pigtail plastic stentplaced in the common hepatic duct. Please see separate procedural note by Endoscopist for additional findingsand details. CRITICAL RESULT: No. COMMUNICATION: Per this written report. Approved by Aric Perkins DO on 05/21/2022 3:46 PM By electronically signing this report, I, the attending physician, attestthat I have personally reviewed the images/data for the aboveexamination(s) and agree with the final edited report. Dictated by Aric Perkins DO on 05/21/2022 3:46 PM Signed by Vikash Aburto MD on 05/21/2022 4:03 PM us Daryn Cordova MD IMG FLUOROSCOPY PROCEDURES F inal Result * POCT glucose meter (05/21/2022 10:50 AM EST) POCT Glucose 92 74 - 99 mg/dL 05/21/2022 1:50 PM EST [facility] Comment:Accuracy of a glucos e result obtained from a capillary whole blood specimen relies upon adequate, non-compromised capillary blood flow. If the capillary glucose result is not consistent with the patient's clinical signs and symptoms, glucose testing should be repeated with either an arterial or venous sample on the glucometer or sent to the main labortory for testing. Comment 05/21/2022 1:50 PM EST [facility] Probation Manager ID [email or web address] Justo [phone] 1:50 PM EST [facility] Device ID [id number] 05/21/2022 1:50 PM EST [facility] Specimen Type POC Capillary 05/21/2022 1:50 PM EST [facility] Blood Capillary blood specimen / Unknown 05/21/2022 10:50 AM EST 05/21/2022 1:50 PM EST Artemio Dorsey MD LAB POINT OF CAR E TEST DOCKED DEVICE UNSOLICITED RESULTS Final Result Performing Organization Address [facility] Co de Phone Number [facility] [address] [place] [address] * (ABNORMAL) POCT glucose meter (05/21/2022 6:01 AM EST) [facility] POCT Glucose 104(H) 74 - 99 mg/dL 05/21/2022 6:05 AM EST [facility] Comment:Accuracy of a glucos e result obtained from a capillary whole blood specimen relies upon adequate, non-compromised capillary blood flow. If the capillary glucose result is not consistent with the patient's clinical signs and symptoms, glucose testing should be repeated with either an arterial or venous sample on the glucometer or sent to the main labortory for testing. Comment 05/21/2022 6:05 AM EST [facility] Probation Manager ID Barbara Fuentes 05/21/19 23 6:05 AM EST [facility] Device ID [id number] 05/21/2022 6:05 AM EST [facility] Specimen Type POC Capillary 05/21/2022 6:05 AM EST [facility] Blood Capillary blood specimen / Unknown 05/21/2022 6:01 AM EST 05/21/2022 6:05 AM EST Artemio Dorsey MD LAB POINT OF CAR E TEST DOCKED DEVICE UNSOLICITED RESULTS Final Result Performing Organization Address City/[facility]/ZIP Co de Phone Number [facility] [address] [place] [address] * SARS CoV-2/COVID-19 by PCR (05/21/2022 1:24 AM EST) [facility] SARS CoV-2/COVID-1 9 RNA PCR Result Not Detected Not Detected 05/21/2022 3:45 AM EST [facility] Swab Nasopharyngeal structure / Unknown Non-blood Collection / Unknown 05/21/2022 1:24 AM EST 05/21/2022 2:55 AM EST Narrative [facility] - 05/21/2022 3:45 AM EST This assay is for in vitro diagnostic use under FDA emergency use authorization only. Negative results do not preclude infection with the SARS CoV-2 virus and should not be the sole basis of a patient treatment/management or public health decision. Follow up testing should be performed according to the current CDC recommendations. This test was performed on the Xpert Xpress SARS CoV-2 test, a PCR-based method. Negative results should be considered presumptive and do not preclude current or future infection obtained through community transmission or other exposures. Negative results must be considered in the context of an individual's recent exposures, history, presence of clinical signs and symptoms consistent with COVID-19. Irma Reynoso MD LAB MICROBIOLOGY - GENERAL ORDERABLES Final Result Performing Organization Address City/[facility] Co de Phone Number [facility] [address] [place] [address] * (ABNORMAL) Multi Drug Resistance Test (05/21/2022 1:24 AM EST) [facility] Culture Methicillin-Resis tant Staphylococcus aureus(AA) 05/23/2022 7:26 AM EST [facility] Comment: The organism value for this result has been updated. These results have been appended to the previously preliminary verified report. <null> has been updated to reportable. Swab (Nares and Carmen Rectal) Non-blood Collection / Unknown 05/21/2022 1:24 AM EST 05/21/2022 2:53 AM EST Irma Reynoso MD LAB MICROBIOLOGY - GENERAL ORDERABLES Final Result Performing Organization Address City/[facility] Co de Phone Number [facility] [address] [place] [address] * Lactate, venous (05/21/2022 1:20 AM EST) [facility] Lactate, Venous, Whole Blood 0.7 0.5 - 2.2 mmol/L LAB HEMATOLOGY METHOD 05/21/2022 1:27 AM EST [facility] Blood Venous blood specimen / Unknown Venipuncture / Unknown 05/21/2022 1:20 AM EST 05/21/2022 1:25 AM EST us Artemio Dorsey MD LAB BLOOD ORDERABLES Fin al Result Performing Organization Address City/[facility] de Phone Number [facility] [address] [place] [address] * Phosphorus, Plasma (05/21/2022 1:20 AM EST) Phosphorus, Plasma 2.5 2.5 - 4.5 mg/dL 05/21/2022 2:27 AM EST [facility] Blood Venous blood specimen / Unknown Venipuncture / Unknown 05/21/2022 1:20 AM EST 05/21/2022 1:29 AM EST us Artemio Dorsey MD LAB BLOOD ORDERABLES Fin al Result Performing Organization Address [facility] Phone Number [facility] [address] [place] [address] * (ABNORMAL) Magnesium, Plasma (05/21/2022 1:20 AM EST) Magnesium, Plasma 1.7(L) 1.9 - 2.4 mg/dL 05/21/2022 2:27 AM EST [facility] Blood Venous blood specimen / Unknown Venipuncture / Unknown 05/21/2022 1:20 AM EST 05/21/2022 1:29 AM EST us Artemio Dorsey MD LAB BLOOD ORDERABLES Fin al Result Performing Organization Address City/[facility] de Phone Number [facility] [address] [place] [address] * (ABNORMAL) CBC W/O Differential (05/21/2022 1:20 AM EST) WBC Count 10.34(H) 3.70 - 10.30 10*3/uL LAB HEMATOLOGY METHOD 05/21/2022 1:38 AM EST [facility] RBC Count 3.94 3.90 - 5.20 10*6/uL LAB HEMATOLOGY METHOD 05/21/2022 1:38 AM EST [facility] HGB 11.4 11.2 - 15.7 g/dL LAB HEMATOLOGY METHOD 05/21/2022 1:38 AM EST [facility] HCT 35.6 34.0 - 45.0 % LAB HEMATOLOGY METHOD 05/21/2022 1:38 AM EST [facility] Platelet Count 151(L) 155 - 369 10*3/uL LAB HEMATOLOGY METHOD 05/21/2022 1:38 AM EST [facility] MCV 90 79 - 98 fL LAB HEMATOLOGY METHOD 05/21/2022 1:38 AM EST [facility] MCH 28.9 26.0 - 32.0 pg LAB HEMATOLOGY METHOD 05/21/2022 1:38 AM EST [facility] MCHC 32.0 30.7 - 35.5 g/dL LAB HEMATOLOGY METHOD 05/21/2022 1:38 AM EST [facility] RDW 13.7 11.5 - 14.5 % LAB HEMATOLOGY METHOD 05/21/2022 1:38 AM EST [facility] MPV 10.1 8.8 - 12.5 fL LAB HEMATOLOGY METHOD 05/21/2022 1:38 AM EST [facility] nRBC 0.0 <=0.0 per 100 WBCs LAB HEMATOLOGY METHOD 05/21/2022 1:38 AM EST [facility] Blood Venous blood specimen / Unknown Venipuncture / Unknown 05/21/2022 1:20 AM EST 05/21/2022 1:29 AM EST Artemio Dorsey MD LAB BLOOD ORDERABLES Fin al Result [facility] [address] [place] [address] * (ABNORMAL) Comprehensive Metabolic Panel, Plasma (05/21/2022 1:20 AM EST) [facility] Glucose, Plasma 113(H) 74 - 99 mg/dL 05/21/2022 2:27 AM EST [facility] BUN, Plasma 14 8 - 23 mg/dL 05/21/2022 2:27 AM EST [facility] Creatinine, Plasma 1.00 0.60 - 1.10 mg/dL 05/21/2022 2:27 AM EST [facility] BUN/Creatinine Ratio 14 05/21/2022 2:27 AM EST [facility] Sodium, Plasma 134(L) 136 - 145 mmol/L 05/21/2022 2:27 AM EST [facility] Potassium, Plasma 4.0 3.7 - 4.8 mmol/L 05/21/2022 2:27 AM [facility] Chloride, Plasma 104 97 - 107 mmol/L 05/21/2022 2:27 AM EST [facility] CO2, Plasma 20(L) 22 - 29 mmol/L 05/21/2022 2:27 AM EST [facility] Anion Gap 10 6 - 16 mmol/L 05/21/2022 2:27 AM [facility] Total Calcium, Plasma 8.4(L) 8.9 - 10.2 mg/dL 05/21/2022 2:27 AM [facility] Total Protein 5.1(L) 6.3 - 7.9 g/dL 05/21/2022 2:27 AM [facility] Albumin, Plasma 3.2(L) 3.5 - 5.2 g/dL 05/21/2022 2:27 AM [facility] AST, Plasma 489(H) 9 - 36 U/L 05/21/2022 2:27 AM [facility] ALT, Plasma 217(H) 8 - 33 U/L 05/21/2022 2:27 AM [facility] Alkaline Phosphatase, Plasma 221(H) 46 - 142 U/L 05/21/2022 2:27 AM [facility] Total Bilirubin, Plasma 2.2(H) 0.2 - 1.1 mg/dL 05/21/2022 2:27 AM [facility] eGFRcr 61.9 mL/min/1.7 3m*2 05/21/2022 2:27 AM EST [facility] Comment: Reported eGFRcr in mL/min/1.73m2 is based the CKD-EPI 2021 equation that does not use a race coefficient. Effective 10/29/21 our laboratory changed the eGFR calculation to the CKD-EPI 2021 equation from the previously reported eGFR, based on the MDRD equation. ??For comparisons between the two equations, please see laboratory website: ??[email or web address] Blood Venous blood specimen / Unknown Venipuncture / Unknown 05/21/2022 1:20 AM EST 05/21/2022 1:29 AM EST us Artemio Dorsey MD LAB BLOOD ORDERABLES Fin al Result [facility] [address] [place] [address] documented in this encounter Visit Diagnoses Diagnosis Choledocholithiasis with acute cholecystitis- Primary Calculus of bile duct with acute cholecystitis without mention of obstruction Choledocholithiasis with acute cholecystitis Calculus of bile duct with acute cholecystitis without mention of obstruction Chronic pain disorder Chronic pain syndrome Choledocholithiasis with acute cholecystitis Calculus of bile duct with acute cholecystitis without mention of obstruction documented in this encounter Admitting Diagnoses Diagnosis Choledocholithiasis with acute cholecystitis Calculus of bile duct with acute cholecystitis without mention of obstruction documented in this encounter Administered Medications Inactive Administered Medications - up to 3 most recent administrations Medication Order MAR Action Action Date Dose Rate Site acetaminophen (Tylenol) tablet 1,000 mg 1,000 mg, Oral, Every 6 hours scheduled, First dose on Wed05/21/22 at 0000, Until Discontinued, Routine Given 05/23/2022 8:46 AM EST 1,000 mg Given 05/23/2022 1:13 AM EST 1,000 mg Given 05/22/2022 8:23 PM EST 1,000 mg aprepitant (Emend) capsule 40 mg 40 mg, Oral, Once, 1 dose, On Wed05/22/22 at 1045, Routine, Holding - Preprocedure Given 05/22/2022 10:43 AM EST 40 mg atorvastatin (Lipitor) tablet 20 mg 20 mg, Oral, Nightly, First dose on Wed05/21/22 at 0200, Until Discontinued, Routine Given 05/22/2022 8:24 PM EST 20 mg Given 05/21/2022 8:13 PM EST 20 mg Given 05/21/2022 3:13 AM EST 20 mg dextrose 10 % (D10W) bolus 125 mL 125 mL (12.5 g), Intravenous, Every 15 min PRN, Starting on Anuradha 05/21/22 at 0356, Until 05/23/22 at 1445, Administer over 15 Minutes, Routine, POC BG 51 to 70 mg/dL dextrose 10 % (D10W) bolus 250 mL 250 mL (25 g), Intravenous, Every 15 min PRN, Starting on Anuradha 05/21/22 at 0356, Until 05/23/22 at 1445, Administer over 15 Minutes, Routine, POC BG is less than or equal to 50 mg/dL dextrose 5 % and lactated Ringer's infusion 75 mL/hr, Intravenous, Continuous, Starting on Wed05/20/22 at 2330, Until 05/23/22 at 1445, Routine New Bag 05/22/2022 2:09 PM EST 75 mL/ hr 75 mL/hr New Bag 05/20/2022 11:29 PM EST 75 mL/hr 75 mL/hr enoxaparin (Lovenox) syringe 40 mg 40 mg, Subcutaneous, Daily, First dose on Wed05/22/22 at 0900, Until Discontinued, Routine Given 05/23/2022 8:46 AM EST 40 mg Left Lower Abdomen Given 05/22/2022 8:31 AM EST 40 mg Le ft Lower Abdomen fentaNYL (Sublimaze) injection 25 mcg 25 mcg, Intravenous, Every 5 min PRN, 2 doses, Starting on Anuradha 05/21/22 at 1156, Until Wed05/21/22 at 1359, Routine, Recovery (Phase I only), pain score of 3-4 out of 10 Given 05/21/2022 1:59 PM EST 25 mcg Given 05/21/2022 12:35 PM EST 25 mcg gabapentin (Neurontin) capsule 200 mg 200 mg, Oral, 3 times daily, First dose on Anuradha 05/21/22 at 0900, Until Discontinued, Routine Given 05/22/2022 2:15 PM EST 200 mg Given 05/22/2022 8:31 AM EST 200 mg Given 05/21/2022 8:13 PM EST 200 mg gabapentin (Neurontin) capsule 300 mg 300 mg, Oral, Daily, First dose on 05/23/22 at 0900, Until Discontinued, Routine Given 05/23/2022 8:45 AM EST 300 mg gabapentin (Neurontin) capsule 600 mg 600 mg, Oral, Nightly, First dose on Wed05/22/22 at 2100, Until Discontinued, Routine Given 05/22/2022 8:24 PM EST 600 mg glucagon (human recombinant) injection 1 mg 1 mg, Intramuscular, Every 15 min PRN, Starting on Anuradha 05/21/22 at 0356, Until 05/23/22 at 1445, Routine, If patient NPO, lacks IV access, May Give IM and POC BG less than or equal to 70 mg/dL, glucose (Glutose) 40 % oral gel 15 grams of glucose 15 grams of glucose, Sublingual, Every 15 min PRN, Starting on Anuradha 05/21/22 at 0356, Until 05/23/22 at 1445, Routine, low blood sugar, POC BG 71 to 89 mg/dL glucose (Glutose) 40 % oral gel 15 grams of glucose 15 grams of glucose, Sublingual, Every 15 min PRN, Starting on Anuradha 05/21/22 at 0356, Until 05/23/22 at 1445, Routine, low blood sugar, BG 51?to 70 mg/dL glucose (Glutose) 40 % oral gel 30 grams of glucose 30 grams of glucose, Sublingual, Every 15 min PRN, Starting on Anuradha 05/21/22 at 0356, Until 05/23/22 at 1445, Routine, low blood sugar, POC BG is less than or equal to 50 mg/dL heparin (porcine) injection 5,000 Units 5,000 Units, Subcutaneous, Every 8 hours scheduled, First dose on Anuradha 05/21/22 at 0600, Until Discontinued, Routine, On hold since Anuradha 05/21/2022 at 0845 until manually unheld Given 05/21/2022 5:03 AM EST 5,000 Units Left Lower Abdomen HYDROmorphone (Dilaudid) injection 0.25 mg 0.25 mg, Intravenous, Every 3 hours PRN, Starting on Wed05/21/22 at 0022, Until 05/23/22 at 1445, Routine, severe pain HYDROmorphone (Dilaudid) injection 0.25 mg 0.25 mg, Intravenous, Every 2 hour PRN, Starting on Wed05/22/22 at 1432, Until 05/23/22 at 1445, Routine, Recovery(Phase II-Outpatient)/On Unit(Inpatient), severe pain, breakthrough pain Given 05/22/2022 8:32 PM EST 0.25 mg Given 05/22/2022 5:04 PM EST 0.25 mg levothyroxine (Synthroid, Levoxyl) tablet 25 mcg 25 mcg, Oral, Every morning, First dose on Wed05/22/22 at 0600, Until Discontinued, Routine Given 05/23/2022 5:58 AM EST 25 mcg Given 05/22/2022 6:09 AM EST 25 mcg magnesium sulfate IVPB 2 g 2 g, Intravenous, Once, 1 dose, On Anuradha 05/21/22 at 0600, Routine New Bag 05/21/2022 9:47 AM EST 2 g 25 mL/hr methocarbamol (Robaxin) tablet 500 mg 500 mg, Oral, Every 8 hours, First dose on Wed05/20/22 at 2330, Until Discontinued, Routine Given 05/22/2022 8:32 AM EST 500 mg Given 05/22/2022 12:12 AM EST 500 mg Given 05/21/2022 9:49 AM EST 500 mg methocarbamol (Robaxin) tablet 500 mg 500 mg, Oral, Every 6 hours, First dose (after last modification) on Wed05/22/22 at 2000, Until Discontinued, Routine, Recovery(Phase II-Outpatient)/On Unit(Inpatient) Given 05/23/2022 8:46 AM EST 500 mg Given 05/23/2022 1:13 AM EST 500 mg Given 05/22/2022 8:23 PM EST 500 mg metoclopramide (Reglan) injection 10 mg 10 mg, Intravenous, Every 6 hours PRN, Starting on Wed05/21/22 at 0355, Until 05/23/22 at 1445, Routine, nausea, vomiting Given 05/21/2022 8:13 PM EST 1 0 mg Given 05/21/2022 5:03 AM EST 10 mg midodrine (Proamatine) tablet 10 mg 10 mg, Oral, 2 times daily, First dose on Wed05/21/22 at 0900, Until Discontinued, Routine Given 05/23/2022 8:45 AM EST 10 mg Given 05/22/2022 8:24 PM EST 10 mg Given 05/22/2022 8:32 AM EST 10 mg morphine CR (MS Contin) 12 hr tablet 30 mg 30 mg, Oral, 2 times daily, First dose on Wed05/22/22 at 2100, Until Discontinued, Routine Given 05/23/2022 8:45 AM EST 30 mg Given 05/22/2022 8:24 PM EST 30 mg ondansetron (Zofran) injection 4 mg 4 mg, Intravenous, Every 6 hours PRN, Starting on Wed05/20/22 at 2304, Until 05/23/22 at 1445, Routine, nausea, vomiting Given 05/22/2022 4:08 AM EST 4 mg Given 05/21/2022 4:12 PM EST 4 mg Given 05/21/2022 8:05 AM EST 4 mg ondansetron (Zofran) injection 4 mg 4 mg, Intravenous, Once, 1 dose, On Wed05/21/22 at 1145, Routine, Holding - Preprocedure Given 05/21/2022 12:35 PM EST 4 mg ondansetron (Zofran) injection 4 mg 4 mg, Intravenous, Once as needed, 1 dose, Starting on Wed05/22/22 at 1330, Until Wed05/22/22 at 1506, Routine, Recovery (Phase I only), nausea, vomiting Given 05/22/2022 3:06 PM EST 4 mg oxyCODONE (Roxicodone) immediate release tablet 10 mg 10 mg, Oral, Every 4 hours PRN, Starting on Wed05/20/22 at 2305, Until 05/23/22 at 1445, Routine, severe pain Given 05/23/2022 12:19 PM EST 10 mg Given 05/23/2022 2:47 AM EST 10 mg Given 05/22/2022 2:15 PM EST 10 mg oxyCODONE (Roxicodone) immediate release tablet 5 mg 5 mg, Oral, Every 4 hours PRN, Starting on Wed05/20/22 at 2305, Until 05/23/22 at 1445, Routine, moderate pain Given 05/23/2022 8:59 AM EST 5 mg pantoprazole (Protonix) EC tablet 40 mg 40 mg, Oral, Daily before breakfast, First dose on Wed05/21/22 at 0730, Until Discontinued, Routine Given 05/23/2022 6:38 AM EST 40 mg Given 05/22/2022 8:32 AM EST 40 mg Given 05/21/2022 9:49 AM EST 40 mg piperacillin-tazobactam (Zosyn) 4.5 g in sodium chloride 0.9% 100 mL IVPB (Mini-Bag Plus) 4.5 g, Intravenous, Every 6 hours, First dose on Wed05/21/22 at 0045, Until Discontinued, Routine New Bag 05/23/2022 8:46 AM EST 4.5 g New Bag 05/23/2022 1:14 AM EST 4.5 g New Bag 05/22/2022 8:23 PM EST 4.5 g potassium chloride IVPB 10 mEq 10 mEq, Intravenous, Every 1 hour, 4 doses, First dose on Wed05/22/22 at 0600, Last dose on Wed05/22/22 at 0900, Routine New Bag 05/22/2022 8:34 AM EST 10 mEq 100 mL/hr New Bag 05/22/2022 8:22 AM EST 10 mEq 100 mL/hr New Bag 05/22/2022 6:14 AM EST 10 mEq 100 mL/hr Povidone-Iodine 5 % swab solution 1 Swab Nasal, Daily, 5 doses, First dose on Wed05/22/22 at 0900, Last dose on Wed05/26/22 at 0900, Routine Given 05/23/2022 11:39 AM EST 1 Swab. Given 05/22/2022 8:16 AM EST 1 Swab. sodium chloride 0.9 % flush 10 mL 10 mL, Intravenous, Every 12 hours PRN, Starting on Wed05/20/22 at 2301, Until 05/23/22 at 1445, Routine, line care Given 05/21/2022 11:02 AM EST 10 mL sodium chloride 0.9 % flush 10 mL 10 mL, Intravenous, As needed, Starting on Wed05/20/22 at 2301, Until 05/23/22 at 1445, Routine, line care, Before and after each medication infusion sodium chloride 0.9 % flush 10 mL 10 mL, Intravenous, Every 12 hours, First dose on Wed05/21/22 at 1145, Until Discontinued, Routine, Holding - Preprocedure Given 05/22/2022 12: 12 AM EST 10 mL topiramate (Topamax) tablet 50 mg 50 mg, Oral, 2 times daily, Hazardous Drug-Tier 2 Precautions. , First dose on Wed05/21/22 at 0900 Given 05/23/2022 8:46 AM EST 50 mg Given 05/22/2022 8:24 PM EST 50 mg Given 05/22/2022 8:32 AM EST 50 mg traZODone (Desyrel) tablet 50 mg 50 mg, Oral, Nightly, First dose on Anuradha 05/21/22 at 0200, Until Discontinued, Routine Given 05/22/2022 8:23 PM EST 50 mg Given 05/21/2022 8:13 PM EST 50 mg Given 05/21/2022 3:14 AM EST 50 mg documented in this encounter Active and Recently Administered Medications Times are shown in EST. Scheduled Medication Order 05/21/2022 05/22/2022 05/23/2022 acetaminophen (Tylenol) tablet 1,000 mg 1,000 mg, Oral, Every 6 hours scheduled, First dose on Anuradha 05/21/22 at 0000, Until Discontinued, Routine 0006 (Given - Provider: Barbara Fuentes RN)0502 (Given - Provider: Barbara Fuentes RN)1424 (Not Given - Provider: Casey Eid RN - Reason: Patient in procedure)2012 (Given - Provider: Brenda Rubio RN) 0422 (Not Given - Provider: Brenda Rubio RN - Reason: Patient/family refused)0937 (Not Given - Provider: Casey Eid RN - Reason: Patient/family refused)1153 (MAR Hold - Provider: Automatic Transfer Provider - Reason: Patient in procedure)1400 (Dose Auto Held - Provider: Automatic Transfer Provider)1412 (MAR Unhold - Provider: Lesli Wing RN)1414 (Given - Provider: Lesli Wing, LISBETH)2023 (Given - Provider: Estela Landers RN) 0113 (Given - Provider: Estela Landers RN)0846 (Given - Provider: Zainab Zhang, LISBETH)1400 (Canceled Entry - Provider: Automatic Discharge Provider - Comment: Automatically canceled at discontinue of medication order) aprepitant (Emend) capsule 40 mg (COMPLETED) 40 mg, Oral, Once, 1 dose, On Wed05/22/22 at 1045, Routine, Holding - Preprocedure 1043 (Given - Provider: Barbara De La Garza CNA) atorvastatin (Lipitor) tablet 20 mg 20 mg, Oral, Nightly, First dose on Anuradha 05/21/22 at 0200, Until Discontinued, Routine 0313 (Given - Provider: Barbara Fuentes, LISBETH)2012 (Given - Provider: Brenda Rubio, LISBETH) 1153 (MAR Hold - Provider: Automatic Transfer Provider - Reason: Patient in procedure)1514 (JUN Unhold - Provider: Automatic Transfer Provider)2023 (Given - Provider: Estela Landers, RN) enoxaparin (Lovenox) syringe 40 mg 40 mg, Subcutaneous, Daily, First dose on Wed05/22/22 at 0900, Until Discontinued, Routine 0831 (Given - Provider: Mela Arnold RN)1154 (JUN Hold - Provider: Automatic Transfer Provider - Reason: Patient in procedure)1514 (MAR Unhold - Provider: Automatic Transfer Provider) 0846 (Given - Provider: Zainab Zhang, LISBETH) gabapentin (Neurontin) capsule 200 mg (CANCELED) 200 mg, Oral, 3 times daily, First dose on Wed05/21/22 at 0900, Until Discontinued, Routine 0949 (Given - Provider: Casey Eid RN)1703 (Not Given - Provider: Casey Eid RN - Reason: Patient in procedure)2012 (Given - Provider: Brenda Rubio, LISBETH) 0831 (Given - Provider: Mela Arnold RN)1154 (JUN Hold - Provider: Automatic Transfer Provider - Reason: Patient in procedure)1400 (Dose Auto Held - Provider: Automatic Transfer Provider)1412 (MAR Unhold - Provider: Lesli Wing, LISBETH)1415 (Given - Provider: Lesli Wing, LISBETH) gabapentin (Neurontin) capsule 300 mg 300 mg, Oral, Daily, First dose on Wed05/23/22 at 0900, Until Discontinued, Routine 0845 (Given - Provider: Zainab Zhang, LISBETH) gabapentin (Neurontin) capsule 600 mg 600 mg, Oral, Nightly, First dose on Wed05/22/22 at 2100, Until Discontinued, Routine 2023 (Given - Provider: Estela Landers, LISBETH) heparin (porcine) injection 5,000 Units (CANCELED) 5,000 Units, Subcutaneous, Every 8 hours scheduled, First dose on Wed05/21/22 at 0600, Until Discontinued, Routine, On hold since Wed05/21/2022 at 0845 until manually unheld 0503 (Given - Provider: Barbara Fuentes, LISBETH)0845 (Held by provider - Provider: Anna Veliz APRN - Reason: Upcoming test/procedure)1209 (Unheld by provider - Provider: Jessica Frausto) lactated Ringer's infusion (COMPLETED) 100 mL/hr, Intravenous, Once, 1 dose, On Anuradha 05/21/22 at 1145, Routine 1244 (New Bag - Provider: Mercedes Graves)1322 (Anesthesia Volume Adjustment - Provider: Mercedes Graves) levothyroxine (Synthroid, Levoxyl) tablet 25 mcg 25 mcg, Oral, Every morning, First dose on Wed05/22/22 at 0600, Until Discontinued, Routine 0609 (Given - Provider: Brenda Rubio, LISBETH)1154 (JUN Hold - Provider: Automatic Transfer Provider - Reason: Patient in procedure)1514 (JUN Unhold - Provider: Automatic Transfer Provider) 0558 (Given - Provider: Estela Landers, LISBETH) magnesium sulfate IVPB 2 g (COMPLETED) 2 g, Intravenous, Once, 1 dose, On Anuradha 05/21/22 at 0600, Routine 0947 (New Bag - Provider: Casey Eid, LISBETH) methocarbamol (Robaxin) tablet 500 mg (CANCELED) 500 mg, Oral, Every 8 hours, First dose on Wed05/20/22 at 2330, Until Discontinued, Routine 0006 (Given - Provider: Barabra Fuentes, LISBETH)0949 (Given - Provider: Casey Eid, LISBETH)1521 (Not Given - Provider: Casey Eid, LISBETH - Reason: Patient in procedure) 0012 (Given - Provider: Brenda Rubio, LISBETH)0832 (Given - Provider: Mela Arnold, LISBETH)1153 (JUN Hold - Provider: Automatic Transfer Provider - Reason: Patient in procedure)1400 (Dose Auto Held - Provider: Automatic Transfer Provider)1432 (JUN Unhold - Provider: Dwight Valdez MD) methocarbamol (Robaxin) tablet 500 mg 500 mg, Oral, Every 6 hours, First dose (after last modification) on Wed05/22/22 at 2000, Until Discontinued, Routine, Recovery(Phase II-Outpatient)/On Unit(Inpatient) 2022 (Given - Provider: Estela Landers RN) 0113 (Given - Provider: Estela Landers RN)0846 (Given - Provider: Zainab Zhang, RN)1400 (Canceled Entry - Provider: Automatic Discharge Provider - Comment: Automatically canceled at discontinue of medication order) midodrine (Proamatine) tablet 10 mg 10 mg, Oral, 2 times daily, First dose on Anuradha 05/21/22 at 0900, Until Discontinued, Routine 0949 (Given - Provider: Casey Eid, LISBETH)2012 (Given - Provider: Brenda Rubio RN) 0832 (Given - Provider: Mela Arnold, LISBETH)1153 (JUN Hold - Provider: Automatic Transfer Provider - Reason: Patient in procedure)151 (JUN Unhold - Provider: Automatic Transfer Provider)2023 (Given - Provider: Estela Landers RN) 0845 (Given - Provider: Zainab Zhang, LISBETH) morphine CR (MS Contin) 12 hr tablet 30 mg 30 mg, Oral, 2 times daily, First dose on Wed05/22/22 at 2100, Until Discontinued, Routine 2023 (Given - Provider: Estela Landers, LISBETH) 0845 (Given - Provider: Zainab Zhang, LISBETH) ondansetron (Zofran) injection 4 mg (COMPLETED) 4 mg, Intravenous, Once, 1 dose, On Anuradha 05/21/22 at 1145, Routine, Holding - Preprocedure 1235 (Given - Provider: Vikash Lara) pantoprazole (Protonix) EC tablet 40 mg 40 mg, Oral, Daily before breakfast, First dose on Anuradha 05/21/22 at 0730, Until Discontinued, Routine 0949 (Given - Provider: Casey Eid RN) 0832 (Given - Provider: Mela Arnold, LISBETH)1153 (JUN Hold - Provider: Automatic Transfer Provider - Reason: Patient in procedure)151 (JUN Unhold - Provider: Automatic Transfer Provider) 0638 (Given - Provider: Estela Landers RN) piperacillin-tazobacta m (Zosyn) 4.5 g in sodium chloride 0.9% 100 mL IVPB (Mini-Bag Plus) 4.5 g, Intravenous, Every 6 hours, First dose on Anuradha 05/21/22 at 0045, Until Discontinued, Routine 0105 (New Bag - Provider: Barbara Fuentes, LISBETH)0558 (New Bag - Provider: Barbara Fuentes, LISBETH)1522 (Not Given - Provider: Casey Eid RN - Reason: Patient in procedure)2012 (New Bag - Provider: Brenda Rubio, LISBETH) 0209 (New Bag - Provider: Brenda Rubio, RN)0937 (New Bag - Provider: Casey Eid RN)1303 ([place]us - Provider: Masood Olson CRNA)2023 (New Bag - Provider: Estela Landers, RN) 0114 (New Bag - Provider: Estela Landers, RN)0846 (New Bag - Provider: Zainab Zhang, RN)1400 (Canceled Entry - Provider: Automatic Discharge Provider - Comment: Automatically canceled at discontinue of medication order) potassium chloride IVPB 10 mEq () 10 mEq, Intravenous, Every 1 hour, 4 doses, First dose on Wed05/22/22 at 0600, Last dose on Wed05/22/22 at 0900, Routine 0614 (New Bag - Provider: Brenda Rubio RN)0822 (New Bag - Provider: Mela Arnold, LISBETH)0834 (New Bag - Provider: Casey Eid RN)1026 (Not Given - Provider: Casey Eid RN - Reason: Patient in procedure) Povidone-Iodine 5 % swab solution 1 Swab Nasal, Daily, 5 doses, First dose on Wed05/22/22 at 0900, Last dose on Wed05/26/22 at 0900, Routine 0816 (Given - Provider: Casey Eid RN)1154 (JUN Hold - Provider: Automatic Transfer Provider - Reason: Patient in procedure)1514 (JUN Unhold - Provider: Automatic Transfer Provider) 1139 (Given - Provider: Zainab Zhang, LISBETH) sodium chloride 0.9 % flush 10 mL (CANCELED)(Linked Group 1) 10 mL, Intravenous, Every 12 hours, First dose on Anuradha 05/21/22 at 1145, Until Discontinued, Routine, Holding - Preprocedure 1348 (Canceled Entry - Provider: Casey Eid RN) 0012 (Given - Provider: Brenda Rubio RN)1154 ([facility] Hold - Provider: Automatic Transfer Provider - Reason: Patient in procedure)1400 (Canceled Entry - Provider: Casey Eid, RN)1514 ([facility] Unhold - Provider: Automatic Transfer Provider) Sodium Phosphate-NaCl IVPB 15 mmol 15 mmol (rounded from 9.488 mmol = 0.16 mmol/kg ? 59.3 kg [place] weight), Intravenous, Once, 1 dose, On Wed05/22/22 at 0600, Routine 1154 (MAR Hold - Provider: Automatic Transfer Provider - Reason: Patient in procedure)1400 (Dose Auto Held - Provider: Automatic Transfer Provider)1514 ([facility] [place] Unhold - Provider: Automatic Transfer Provider) topiramate (Topamax) tablet 50 mg 50 mg, Oral, 2 times daily, Hazardous Drug-Tier 2 Precautions. , First dose on Anuradha 05/21/22 at 0900 0949 (Given - Provider: Casey Eid, RN)2020 (Given - Provider: Brenda Rubio, LISBETH) 0832 (Given - Provider: Mela Arnold RN)1153 ([facility] [place] Hold - Provider: Automatic Transfer Provider - Reason: Patient in procedure)1514 ([facility] [place] Unhold - Provider: Automatic Transfer Provider)2023 (Given - Provider: Estela Landers, LISBETH) 0846 (Given - Provider: Zainab Zhang, LISBETH) traZODone (Desyrel) tablet 50 mg 50 mg, Oral, Nightly, First dose on Anuradha 05/21/22 at 0200, Until Discontinued, Routine 0314 (Given - Provider: Barbara Fuentes, LISBETH)2012 (Given - Provider: Brenda Rubio RN) 1154 ([facility] [place] Hold - Provider: Automatic Transfer Provider - Reason: Patient in procedure)1514 ([facility] [place] Unhold - Provider: Automatic Transfer Provider)2022 (Given - Provider: Estela Landers, LISBETH) Continuous Medication Order 05/21/2022 05/22/2022 05/23/2022 dextrose 5 % and lactated Ringer's infusion 75 mL/hr, Intravenous, Continuous, Starting on Wed05/20/22 at 2330, Until 05/23/22 at 1445, Routine 1409 (New Bag - Provider: Alex Wing RN) PRN Medication Order 05/21/2022 05/22/2022 05/23/2022 bupivacaine PF (Marcaine) 0.25 % injection (CANCELED) As needed, Starting on Wed05/22/22 at 1309, Until 05/22/22 at 1349, Routine, Intraprocedure 1309 (Given - Provider: Irma Reynoso MD) dextrose 10 % (D10W) bolus 125 mL(Linked Group 2) 125 mL (12.5 g), Intravenous, Every 15 min PRN, Starting on Anuradha 05/21/22 at 0356, Until 05/23/22 at 1445, Administer over 15 Minutes, Routine, POC BG 51 to 70 mg/dL 1154 (MAR Hold - Provider: Automatic Transfer Provider - Reason: Patient in procedure)1514 ([facility] [place] Unhold - Provider: Automatic Transfer Provider) dextrose 10 % (D10W) bolus 250 mL(Linked Group 3) 250 mL (25 g), Intravenous, Every 15 min PRN, Starting on Anuradha 05/21/22 at 0356, Until 05/23/22 at 1445, Administer over 15 Minutes, Routine, POC BG is less than or equal to 50 mg/dL 1154 (MAR Hold - Provider: Automatic Transfer Provider - Reason: Patient in procedure)1514 ([facility] Unhold - Provider: Automatic Transfer Provider) fentaNYL (Sublimaze) injection 25 mcg (COMPLETED) 25 mcg, Intravenous, Every 5 min PRN, 2 doses, Starting on Anuradha 05/21/22 at 1156, Until Anuradha 05/21/22 at 1359, Routine, Recovery (Phase I only), pain score of 3-4 out of 10 1235 (Given - Provider: Vikash Lara)1359 (Given - Provider: Shannan Palmer RN) glucagon (human recombinant) injection 1 mg 1 mg, Intramuscular, Every 15 min PRN, Starting on Anuradha 05/21/22 at 0356, Until 05/23/22 at 1445, Routine, If patient NPO, lacks IV access, May Give IM and POC BG less than or equal to 70 mg/dL, 1154 (MAR Hold - Provider: Automatic Transfer Provider - Reason: Patient in procedure)1514 ([facility] [place] Unhold - Provider: Automatic Transfer Provider) glucose (Glutose) 40 % oral gel 15 grams of glucose 15 grams of glucose, Sublingual, Every 15 min PRN, Starting on Anuradha 05/21/22 at 0356, Until 05/23/22 at 1445, Routine, low blood sugar, POC BG 71 to 89 mg/dL 1154 ([facility] [place] Hold - Provider: Automatic Transfer Provider - Reason: Patient in procedure)1514 ([facility] [place] Unhold - Provider: Automatic Transfer Provider) glucose (Glutose) 40 % oral gel 15 grams of glucose(Linked Group 2) 15 grams of glucose, Sublingual, Every 15 min PRN, Starting on Anuradha 05/21/22 at 0356, Until 05/23/22 at 1445, Routine, low blood sugar, BG 51?to 70 mg/dL 1154 ([facility] [place] Hold - Provider: Automatic Transfer Provider - Reason: Patient in procedure)1514 ([facility] [place] Unhold - Provider: Automatic Transfer Provider) glucose (Glutose) 40 % oral gel 30 grams of glucose(Linked Group 3) 30 grams of glucose, Sublingual, Every 15 min PRN, Starting on Anuradha 05/21/22 at 0356, Until 05/23/22 at 1445, Routine, low blood sugar, POC BG is less than or equal to 50 mg/dL 1154 ([facility] [place] Hold - Provider: Automatic Transfer Provider - Reason: Patient in procedure)1514 ([facility] [place] Unhold - Provider: Automatic Transfer Provider) HYDROmorphone (Dilaudid) injection 0.25 mg 0.25 mg, Intravenous, Every 3 hours PRN, Starting on Anuradha 05/21/22 at 0022, Until 05/23/22 at 1445, Routine, severe pain 1153 ([facility] [place] Hold - Provider: Automatic Transfer Provider - Reason: Patient in procedure)1514 ([facility] [place] Unhold - Provider: Automatic Transfer Provider)181 (Canceled Entry - Provider: Casey Eid RN) HYDROmorphone (Dilaudid) injection 0.25 mg 0.25 mg, Intravenous, Every 2 hour PRN, Starting on Wed05/22/22 at 1432, Until 05/23/22 at 1445, Routine, Recovery(Phase II-Outpatient)/On Unit(Inpatient), severe pain, breakthrough pain 1704 (Given - Provider: Mela Arnold RN)2031 (Given - Provider: Estela Landers RN) metoclopramide (Reglan) injection 10 mg 10 mg, Intravenous, Every 6 hours PRN, Starting on Anuradha 05/21/22 at 0355, Until 05/23/22 at 1445, Routine, nausea, vomiting 0503 (Given - Provider: Barbara Fuentes, LISBETH)2012 (Given - Provider: Brenda Rubio, RN) 1154 ([facility] Hold - Provider: Automatic Transfer Provider - Reason: Patient in procedure)1514 ([place] Unhold - Provider: Automatic Transfer Provider) ondansetron (Zofran) injection 4 mg 4 mg, Intravenous, Every 6 hours PRN, Starting on 05/20/22 at 2304, Until 05/23/22 at 1445, Routine, nausea, vomiting 0006 (Given - Provider: Barbara Fuentes RN)0805 (Given - Provider: Casey Eid RN)1612 (Given - Provider: Casey Eid RN) 0408 (Given - Provider: Brenda Rubio RN)1153 ([facility] Hold - Provider: Automatic Transfer Provider - Reason: Patient in procedure)1514 ([facility] Unhold - Provider: Automatic Transfer Provider) ondansetron (Zofran) injection 4 mg (CANCELED) 4 mg, Intravenous, Once as needed, 1 dose, Starting on Wed05/22/22 at 1330, Until Wed05/22/22 at 1506, Routine, Recovery (Phase I only), nausea, vomiting 1506 (Given - Provider: Lesli Wing RN) oxyCODONE (Roxicodone) immediate release tablet 10 mg(Linked Group 4) 10 mg, Oral, Every 4 hours PRN, Starting on Wed05/20/22 at 2305, Until 05/23/22 at 1445, Routine, severe pain 0006 (Given - Provider: Barbara Fuentes, LISBETH)0502 (Given - Provider: Barbara Fuentes RN)0949 (Given - Provider: Casey Eid RN)1457 (Given - Provider: Shannan Palmer RN)1830 (Given - Provider: Casey Eid RN)2245 (Given - Provider: Brenda Rubio, LISBETH) 0835 (Not Given - Provider: Mela Arnold RN - Reason: Patient/family refused)1153 ([facility] Hold - Provider: Automatic Transfer Provider - Reason: Patient in procedure)1413 ([facility] Unhold - Provider: Lesli Wing, LISBETH)1415 (Given - Provider: Lesli Wing RN) 0114 (Not Given - Provider: Estela Landers RN - Reason: Hold for condition: must add comment )0247 (Given - Provider: Estela Landers, RN)0859 (See Alternative - Provider: Zainab Zhang, RN)1219 (Given - Provider: Zainab Zhang, RN) oxyCODONE (Roxicodone) immediate release tablet 5 mg(Linked Group 4) 5 mg, Oral, Every 4 hours PRN, Starting on Wed05/20/22 at 2305, Until 05/23/22 at 1445, Routine, moderate pain 0006 (See Alternative - Provider: Barbara Fuentes RN)0502 (See Alternative - Provider: Barbara Fuentes, LISBETH)0949 (See Alternative - Provider: Casey Eid, LISBETH)1457 (See Alternative - Provider: Shannan Palmer RN)1830 (See Alternative - Provider: Casey Eid, LISBETH)2245 (See Alternative - Provider: Brenda Rubio RN) 0835 (See Alternative - Provider: Mela Arnold, LISBETH)1153 ([place] Hold - Provider: Automatic Transfer Provider - Reason: Patient in procedure)1413 ([facility] Unhold - Provider: Lesli Wing, LISBETH)1415 (See Alternative - Provider: Lesli Wing RN) 0114 (See Alternative - Provider: Estela Landers RN)0247 (See Alternative - Provider: Estela Landers, RN)0859 (Given - Provider: Zainab Zhang, RN)1219 (See Alternative - Provider: Zainab Zhang, RN) sodium chloride 0.9 % flush 10 mL(Linked Group 5) 10 mL, Intravenous, Every 12 hours PRN, Starting on Wed05/20/22 at 2301, Until 05/23/22 at 1445, Routine, line care 1102 (Given - Provider: Vikash Lara) 1153 (MAR Hold - Provider: Automatic Transfer Provider - Reason: Patient in procedure)1514 ([facility] Unhold - Provider: Automatic Transfer Provider) sodium chloride 0.9 % flush 10 mL(Linked Group 5) 10 mL, Intravenous, As needed, Starting on Wed05/20/22 at 2301, Until 05/23/22 at 1445, Routine, line care, Before and after each medication infusion 1153 ([facility] [place] Hold - Provider: Automatic Transfer Provider - Reason: Patient in procedure)1514 ([facility] [place] Unhold - Provider: Automatic Transfer Provider) Linked Groups Order Group 1: Insert peripheral IV (CANCELED) Once, On Anuradha 05/21/22 at 1126, For 1 occurrence, Holding - Preprocedure And Saline lock IV (CANCELED) Once, On Anuradha 05/21/22 at 1126, For 1 occurrence, Holding - Preprocedure And sodium chloride 0.9 % flush 10 mL (CANCELED)Jump to med 10 mL, Intravenous, Every 12 hours, First dose on Anuradha 05/21/22 at 1145, Until Discontinued, Routine, Holding - Preprocedure And sodium chloride 0.9 % flush 10 mL (CANCELED) 10 mL, Intravenous, As needed, Starting on Anuradha 05/21/22 at 1125, Until 05/22/22 at 1514, Routine, Holding - Preprocedure, line care Group 2: glucose (Glutose) 40 % oral gel 15 grams of glucoseJump to med 15 grams of glucose, Sublingual, Every 15 min PRN, Starting on Anuradha 05/21/22 at 0356, Until 05/23/22 at 1445, Routine, low blood sugar, BG 51?to 70 mg/dL Or dextrose 10 % (D10W) bolus 125 mLJump to med 125 mL (12.5 g), Intravenous, Every 15 min PRN, Starting on Anuradha 05/21/22 at 0356, Until 05/23/22 at 1445, Administer over 15 Minutes, Routine, POC BG 51 to 70 mg/dL Group 3: dextrose 10 % (D10W) bolus 250 mLJump to med 250 mL (25 g), Intravenous, Every 15 min PRN, Starting on Anuradha 05/21/22 at 0356, Until 05/23/22 at 1445, Administer over 15 Minutes, Routine, POC BG is less than or equal to 50 mg/dL Or glucose (Glutose) 40 % oral gel 30 grams of glucoseJump to med 30 grams of glucose, Sublingual, Every 15 min PRN, Starting on Anuradha 05/21/22 at 0356, Until 05/23/22 at 1445, Routine, low blood sugar, POC BG is less than or equal to 50 mg/dL Group 4: oxyCODONE (Roxicodone) immediate release tablet 5 mgJump to med 5 mg, Oral, Every 4 hours PRN, Starting on Wed05/20/22 at 2305, Until 05/23/22 at 1445, Routine, moderate pain Or oxyCODONE (Roxicodone) immediate release tablet 10 mgJump to med 10 mg, Oral, Every 4 hours PRN, Starting on Wed05/20/22 at 2305, Until 05/23/22 at 1445, Routine, severe pain Group 5: Insert peripheral IV (CANCELED) Once, On Wed05/20/22 at 2302, For 1 occurrence And Saline lock IV (CANCELED) Once, On Wed05/20/22 at 2302, For 1 occurrence And sodium chloride 0.9 % flush 10 mLJump to med 10 mL, Intravenous, Every 12 hours PRN, Starting on Wed05/20/22 at 2301, Until 05/23/22 at 1445, Routine, line care And sodium chloride 0.9 % flush 10 mLJump to med 10 mL, Intravenous, As needed, Starting on Wed05/20/22 at 2301, Until 05/23/22 at 1445, Routine, line care, Before and after each medication infusion documented in this encounter Additional Health Concerns Infection Onset Date Last Indicated Resolved Time MRSA Comment:MRSA (methicillin resistant Staphylococcus aureus) 04/17/2020 05/21/2022 Assessment Noted Time A fall risk assessment has been complete d for the patient 04/23/2021 1:07 PM EST documented as of this encounter Care Teams Medical Research Tech Relationship Specialty Start Date End Date Juan José Kendall MD [address] [place] [address] [place] [id number] PCP - General 03/12/21 documented as of this encounter
--- OUTSIDE RECORDS SUMMARY | 2024-03-11 09:26 | XMS_ITS | Encounter Summary ---
Author Organization [facility] Address [address] [place] [address] Care Team Providers Care Box Inspector Name Role Phone Juan José eKndall MD Primary Care Provider [phone] Reason for Visit * Auth/Cert (Routine) Specialty Diagnoses / Procedures Referred By Contac t Referred To Contact Diagnoses Choledocholithiasis with acute cholecystitis CHOLEDOCHOLITHIASIS, CHOLECYSTITIS Artemio Dorsey MD [address] [address] Phone: tel: fax: [facility] [address] [place] [address] Phone: tel: Referral ID Status Reason Start Date Expiration Date Visits Re quested Visits Authorized [id number] 1 1 Encounter Details Date Type Department Care Team (Late st Contact Info) Description 05/22/2022 9:55 AM EST - 05/22/2022 12:15 PM EST Surgery [facility] [address] [place] [id number] Irma Reynoso MD [id number] [place] [address] CHOLECYSTECTOMY, LAPAROSCOPIC Surgery Details Date/Time Status Location OR Service Patient Class Case Class Case Type Trauma Case? 05/22/2022 9:55 AM Posted [facility] OR 2OR 14 General Surgery Inpatient E-Electi ve Panel 1 Procedure LRB Anes Op Region Wound Class Comments CHOLECYSTECTOMY, LAPAROSCOPIC N/A General Class II/ Clean Contaminated Surgeon Surgeon Role Service Panel Irma Reynoso MD Primary General Surgery 1 Dwight Valdez MD Resident - Assisting General Kamille elle 1 documented in this encounter Social History Tobacco [...] Sign Reading Time Taken Comments Blood Pressure 92/69 05/22/2022 10:34 AM EST Pulse 62 05/22/2022 10:34 AM EST Temperature 37 ??C (98.6 ??F) 05/22/2022 10:34 AM EST Respiratory Rate 16 05/22/2022 10:34 AM EST Oxygen Saturation 98% 05/22/2022 10:34 AM EST Inhaled Oxygen Concentration - - [...] ERCP Discharge Instructions - Endoscopy Unit () (Albanian) * Anesthesia: General Anesthesia (Albanian) * Cholecystectomy (Albanian) * Laparoscopic Cholecystectomy, Having (Albanian) * Surgical Site Infections, Preventing (Albanian) * Endoscopic Retrograde Cholangiopancreatography, ERCP (Albanian) documented in this encounter Medications at Time [...] José Kendall MD [address] [facility] / [place] [address] Referring provider name and address: [place] [address] Chief Concern, Brief History of Present Illness, and Hospital Course Surgeries and Procedures Procedures performed in this encounter Procedures Case Request Operating Room: CHOLECYSTECTOMY, LAPAROSCOPIC CHOLECYSTECTOMY, LAPAROSCOPIC (N/A) Medication List .. atorvastatin 20 MG tablet Commonly known as: Lipitor Take 20 mg by mouth every night. gpqijrzwvqhrnkf-qubsstzjjfjznsx-BB 30-2-10 MG/5ML syrup Take 5 mL by [...] PGY-6 Gastroenterology Fellow * Op Note - rIma Reynoso MD - 05/22/2022 12:38 PM EST Operative Note Date: 05/22/22 Location: [facility] Name: Trudi Blair, : 1955, Diagnoses: Pre-op Diagnosis Choledocholithiasis with acute cholecystitis Post-op Diagnosis Choledocholithiasis with acute cholecystitis Procedure(s): Laparoscopic cholecytectomy Attending Surgeon(s): * Irma Reynoso - Primary Fibrous Wallboard Inspector(s): * Dwight Valdez MD - Resident - [...] collapse. The umbilical fascia was reapproximated with [id number] 0 Vicryl. All skin incisions were reapproximated with interrupted inverted 4-0 Monocryl and sterile dressing was applied. The patient tolerated the procedure well was taken to recovery in stable condition. Complications: None; patient tolerated the procedure well. Submitted by: Irma Reynoso MD - 05/23/2022 * Brief Op Note - Dwight Valdez MD - 05/22/2022 12:38 PM EST Date: 05/22/22 Location: [facility] Name: Trudi Blair, : 1955, Diagnoses: Pre-op Diagnosis Choledocholithiasis with acute cholecystitis GERD Hx MRSA of Right knee s/p amputation HTN Post-op Diagnosis same Procedure(s): Laparoscopic cholecystectomy Attending Surgeon(s): * Irma Reynoso - Primary Fibrous Wallboard Inspector(s): * Dwight Valdez MD - Resident - Assisting Anesthesia: General ASA: ASA status not filed in the log. Blood Administration: Blood Product Administration History Date Volume Status Transfuse RBC 01/23/2021 530 mL Completed 01/23/215 01/23/2021 330 mL Completed 01/23/212316 Estimated Blood Loss: [...] Evaluation Note Trudi Blair 66 y.o. female [facility]: [phone] Room/Bed 127/127A Nutrition evaluation type: assessment Reason for evaluation: [facility] course: 66 y/o F with choledocholithiasis with [...] APPENDECTOMY BACK SURGERY N/A Back surgery from [facility] DILATION AND CURETTAGE OF UTERUS FOOT SURGERY Bilateral Foot surgery from [facility] HYSTERECTOMY N/A Hysterectomy from [facility] KNEE ARTHROPLASTY Bilateral KNEE SURGERY Bilateral Knee Surgery from [facility] LEG AMPUTATION R AKA SPINAL FUSION lumbar [...] mL, Intravenous, q12h sodium phosphate, 0.16 mmol/kg ([place]), Intravenous, Once topiramate, 50 mg, Oral, BID traZODone, 50 mg, Oral, Nightly dextrose 5 % and lactated Ringer's, 75 mL/hr, Last Rate: 75 mL/hr (05/20/22 4829) PRN medications: glucose OR dextrose 10 %, [...] Diet Experience & Nutrition History: Nutrition Regimen CASHIER AND WAITER/WAITRESS: Reported Intake CASHIER AND WAITER/WAITRESS: Diet Education: Will monitor Pertinent Home Medications: [...] by Drain (mL) 05/20/22 0700 - 05/20/22 1859 05/20/22 1900 - 05/21/22 0659 05/21/22 0700 - 05/21/22 1859 05/21/22 1900 - 05/22/22 0645 Patient has no LDAs [...] pain disorder Staphylococcal arthritis of right knee ([facility]) Overview Addendum 05/21/2022 3:25 PM by Kentrell Romero Added automatically from request for surgery [id number] Recurrent MRSA Present on Admission: Choledocholithiasis with acute cholecystitis Overwight Plan: - NPO - To OR today for lap christiana Edited by: Bart Solis at 05/22/2022 0645 Bart Solis * Significant Event - Nasrin Johansen MD - 05/22/2022 3:43 AM EST Patient [...] Trudi Blair Date of : 1955 Room: 127/127A Referring provider: Surgery Reason for consultation: Choledocholithiasis [...] presented yesterday evening as a transfer from [facility] with abdominalpain and concern for choledocholithiasis. She developed nausea yesterday morning, shortly followed by severe epigastric pain, described as sharp and radiating to her back. Pain is constant. Denies vomiting, fever or chills, and reports constipation at baseline that is unchanged. She went to [facility] after onset, and there was found [...] APPENDECTOMY BACK SURGERY N/A Back surgery from [facility] DILATION AND CURETTAGE OF UTERUS FOOT SURGERY Bilateral Foot surgery from [facility] HYSTERECTOMY N/A Hysterectomy from [facility] KNEE ARTHROPLASTY Bilateral KNEE SURGERY Bilateral Knee Surgery from [facility] LEG AMPUTATION R AKA SPINAL FUSION lumbar Family History Problem Relation Name Age of Onset Hypertension Other Other cancer Other Social History Tobacco Use Smoking status: Never Smokeless tobacco: Never Substance Use Topics Alcohol use: Never Drug use: Never Allergies Allergen Reactions Clarithromycin Other and Unknown severe acid reflux Current Facility-Administered Medications: acetaminophen (Tylenol) tablet 1,000 mg, 1,000 mg, Oral, q6h TAJ, Nsarin Johansen MD, 1,000 mg at 05/21/22 0502 [...] Johansen MD, Last Rate: 75 mL/hr at 05/20/22 2329, 75 mL/hr at 05/20/22 2329 gabapentin (Neurontin) capsule 200 mg, 200 mg, [...] 05/19/22 1859 05/19/22 1900 - 05/20/22 0659 05/20/22 0700 - 05/20/22 1859 05/20/22 1900 - 05/21/22 0659 05/21/22 0700 - [...] MD Added automatically from request for surgery [id number] Present on Admission: Choledocholithiasis with acute cholecystitis Plan: GI Recs Will unhold heparin Edited by: [...] her right upper quadrant. [facility] of the [...] History: Travel Screening No screening recorded since 05/19/222237 Travel History Travel since 04/19/22 No documented [...] mL/hr at 05/20/22 2329 75 mL/hr at 05/20/222328 heparin (porcine) injection 5,000 Units 5,000 Units Subcutaneous q8h [facility] Nasrin Johansen MD methocarbamol (Robaxin) tablet 500 mg [...] flush 10 mL 10 mL Intravenous q12h PRN Nasrin Johansen MD And sodium chloride 0.9 % flush 10 mL 10 mL Intravenous PRN Nasrin Johansen MD Review of Systems 14 point [...] hiatalhernia presenting as a direct admission from [facility] with epigastric/right upperquadrant pain. Imaging at outside [...] ERCP Nasrin Johansen MD General Surgery, PGY-1 [phone] Cosigned by Artemio Dorsey MD at 05/26/2022 [...] POCT glucose meter (05/23/2022 5:57 AM EST) [facility] POCT Glucose 105(H) 74 - 99 mg/dL 05/23/2022 6:00 AM EST [facility] Comment:Accuracy of a [...] for testing. Comment 05/23/2022 6:00 AM EST [facility] Pelt Inspector ID Estela Landers 05/23/2022 6:00 AM EST [facility] Device ID [id number] 05/23/2022 6:00 AM EST [facility] Specimen Type POC Capillary 05/23/2022 6:00 AM EST [facility] Blood Capillary blood specimen / Unknown 05/23/2022 5:57 AM EST 05/23/2022 6:00 AM EST Irma Reynoso MD LAB POINT OF CARE TEST DOCKED DEVICE UNSOLICITED RESULTS Final Result [facility] [address] [place] [address] * Phosphorus, Plasma (05/23/2022 2:38 AM EST) [facility] Phosphorus, Plasma 2.9 2.5 - 4.5 mg/dL 05/23/2022 3:23 AM EST [facility] Blood Venous blood specimen / Unknown Venipuncture / Unknown 05/23/2022 2:38 AM EST 05/23/2022 2:50 AM EST Irma Reynoso MD LAB BLOOD ORDERABLES Final Result [facility] [address] [place] [address] * (ABNORMAL) Magnesium, Plasma (05/23/2022 2:38 AM EST) [facility] Magnesium, Plasma 1.8(L) 1.9 - 2.4 mg/dL 05/23/2022 3:23 AM EST [facility] Blood Venous blood specimen / Unknown Venipuncture / Unknown 05/23/2022 2:38 AM EST 05/23/2022 2:50 AM EST us Irma Reynoso MD LAB BLOOD ORDERABLES Final Result [facility] [address] [place] [address] * (ABNORMAL) CBC W/O Differential (05/23/2022 2:38 AM EST) WBC Count 11.41(H) 3.70 - 10.30 10*3/uL LAB HEMATOLOGY METHOD 05/23/2022 2:59 AM EST [facility] RBC Count 3.73(L) 3.90 - 5.20 10*6/uL LAB HEMATOLOGY METHOD 05/23/2022 2:59 AM EST [facility] HGB 11.0(L) 11.2 - 15.7 g/dL LAB HEMATOLOGY METHOD 05/23/2022 2:59 AM EST [facility] HCT 33.3(L) 34.0 - 45.0 % LAB HEMATOLOGY METHOD 05/23/2022 2:59 AM EST [facility] Platelet Count 142(L) 155 - 369 10*3/uL LAB HEMATOLOGY METHOD 05/23/2022 2:59 AM EST [facility] MCV 89 79 - 98 fL LAB HEMATOLOGY METHOD 05/23/2022 2:59 AM EST [facility] MCH 29.5 26.0 - 32.0 pg LAB HEMATOLOGY METHOD 05/23/2022 2:59 AM EST [facility] MCHC 33.0 30.7 - 35.5 g/dL LAB HEMATOLOGY METHOD 05/23/2022 2:59 AM EST [facility] RDW 14.1 11.5 - 14.5 % LAB HEMATOLOGY METHOD 05/23/2022 2:59 AM EST [facility] MPV 10.6 8.8 - 12.5 fL LAB HEMATOLOGY METHOD 05/23/2022 2:59 AM EST [facility] nRBC 0.0 <=0.0 per 100 WBCs LAB HEMATOLOGY METHOD 05/23/2022 2:59 AM EST [facility] Blood Venous blood specimen / Unknown Venipuncture / Unknown 05/23/2022 2:38 AM EST 05/23/2022 2:51 AM EST us Irma Reynoso MD LAB BLOOD ORDERABLES Final Result [facility] [address] [place] [address] * (ABNORMAL) Comprehensive Metabolic Panel, Plasma (05/23/2022 2:38 AM EST) Glucose, Plasma 105(H) 74 - 99 mg/dL 05/23/2022 3:23 AM EST [facility] BUN, Plasma 12 8 - 23 mg/dL 05/23/2022 3:23 AM EST [facility] Creatinine, Plasma 1.06 0.60 - 1.10 mg/dL 05/23/2022 3:23 AM EST [facility] BUN/Creatinine Ratio 11 05/23/2022 3:23 AM EST [facility] Sodium, Plasma 134(L) 136 - 145 mmol/L 05/23/2022 3:23 AM [facility] Potassium, Plasma 3.8 3.7 - 4.8 mmol/L 05/23/2022 3:23 AM [facility] Chloride, Plasma 103 97 - 107 mmol/L 05/23/2022 3:23 AM [facility] CO2, Plasma 18(L) 22 - 29 mmol/L 05/23/2022 3:23 AM [facility] Anion Gap 13 6 - 16 mmol/L 05/23/2022 3:23 AM EST [facility] Total Calcium, Plasma 8.2(L) 8.9 - 10.2 mg/dL 05/23/2022 3:23 AM EST [facility] Total Protein 4.9(L) 6.3 - 7.9 g/dL 05/23/2022 3:23 AM [facility] Albumin, Plasma 2.6(L) 3.5 - 5.2 g/dL 05/23/2022 3:23 AM EST [facility] AST, Plasma 96(H) 9 - 36 U/L 05/23/2022 3:23 AM EST [facility] ALT, Plasma 83(H) 8 - 33 U/L 05/23/2022 3:23 AM EST [facility] Alkaline Phosphatase, Plasma 160(H) 46 - 142 U/L 05/23/2022 3:23 AM EST [facility] Total Bilirubin, Plasma 0.7 0.2 - 1.1 mg/dL 05/23/2022 3:23 AM EST [facility] eGFRcr 57.7 mL/min/1.7 3m*2 05/23/2022 3:23 AM EST [facility] Comment: Reported eGFRcr in mL/min/1.73m2 is based the CKD-EPI 2020 equation that does not use a race coefficient. Effective 10/29/21 our laboratory changed the eGFR calculation to the CKD-EPI 2021 equation from the previously reported eGFR, based on the MDRD equation. ??For comparisons between the two equations, please see laboratory website: ??[email or web address]/[email or web address] Blood Venous blood specimen / Unknown Venipuncture / Unknown 05/23/2022 2:38 AM EST 05/23/2022 2:50 AM EST Irma Reynoso MD LAB BLOOD ORDERABLES Final Result [facility] [address] [place] [address] * (ABNORMAL) POCT glucose meter (05/23/2022 1:13 AM EST) POCT Glucose 104(H) 74 - 99 mg/dL 05/23/2022 1:15 AM EST [facility] Comment:Accuracy of a glucos e [...] for testing. Comment 05/23/2022 1:15 AM EST [facility] Pelt Inspector ID Estela Landers 05/23/2022 1:15 AM EST [facility] Device ID [id number] 05/23/2022 1:15 AM EST [facility] Specimen Type POC Capillary 05/23/2022 1:15 AM EST [facility] Blood Capillary blood specimen / Unknown 05/23/2022 1:13 AM EST 05/23/2022 1:15 AM EST Irma Reynoso MD LAB POINT OF CARE TEST DOCKED DEVICE UNSOLICITED RESULTS Final Result Performing Organization Address [facility] de Phone Number [facility] [address] [place] [address] * POCT glucose meter (05/22/2022 6:42 PM EST) Pathologist [facility] POCT Glucose 97 74 - 99 mg/dL [...] for testing. Comment 05/22/2022 6:45 PM EST [facility] Pelt Inspector ID Mela Arnold 05/22/2022 6:45 PM EST [facility] Device ID [id number] 05/22/2022 6:45 PM EST [facility] Specimen Type POC Capillary 05/22/2022 6:45 PM EST [facility] Blood Capillary blood specimen / Unknown 05/22/2022 6:42 PM EST 05/22/2022 6:45 PM EST Irma Reynoso MD LAB POINT OF CARE TEST DOCKED DEVICE UNSOLICITED RESULTS Final Result Performing Organization Address [facility] Phone Number [facility] [address] [place] [address] * Surgical Pathology Exam (05/22/2022 1:36 PM EST) Case Report Surgical Pathology ?Case: [id number] ? Authorizing Provider: ??Irma Reynoso MD ? Collected: ? 05/22/2022 1336 ? Ordering Location: ? [facility] ? Received: ?05/22/2022 1403 ? Pathologist: ? Patricia Cedeno MD ? Specimen: ?Gallbladder, gallbladder for permanent ? 05/26/2022 7:14 AM EST [facility] Final Diagnosis GALLBLADDER, EXCISION: ACUTE AND CHRONIC CHOLECYSTITIS WITH CHOLELITHIASIS. 05/26/2022 7:14 AM EST [facility] Clinical Information Choledocholithiasis with acute cholecystitis [K80.42] 05/26/2022 7:14 AM EST [facility] Gross Description A. GALLBLADDER FOR PERMANENT [...] black stones present ranging from 0.6-0.8 cm. Casting Operator Helper sections are submitted in cassette A1 to include the cystic duct, fundus and body. Lana Porras 05/26/2022 7:14 AM EST [facility] Tissue Gallbladder structure / Unknown 05/22/2022 1:36 PM EST 05/22/2022 2:03 PM EST Comment:Pre-op diagnosis: Choledocholithiasis with acute cholecystitis [K80.42] us Irma Reynoso MD LAB PATHOLOGY ORDERABLES F inal Result Performing Organization Address City/[facility] Co de Phone Number [facility] [address] [place] [address] * (ABNORMAL) Lipase (05/22/2022 4:17 AM EST) Lipase, Plasma 270(H) 19 - 63 U/L 05/22/2022 8:25 AM EST [facility] Blood Venous blood specimen / Unknown Venipuncture / Unknown 05/22/2022 4:17 AM EST 05/22/2022 4:49 AM EST Irma Reynoso MD LAB BLOOD ORDERABLES Final Result Performing Organization Address [facility] de Phone Number [facility] [address] [place] [address] * (ABNORMAL) Phosphorus, Plasma (05/22/2022 4:17 AM EST) Phosphorus, Plasma 2.4(L) 2.5 - 4.5 mg/dL 05/22/2022 5:35 AM EST [facility] Blood Venous blood specimen / Unknown Venipuncture / Unknown 05/22/2022 4:17 AM EST 05/22/2022 4:49 AM EST Anna Veliz APRN LAB BLOOD ORDERABLES Maria E l Result Performing Organization Address [facility] Co de Phone Number [facility] [address] [place] [address] * Magnesium, Plasma (05/22/2022 4:17 AM EST) Magnesium, Plasma 2.1 1.9 - 2.4 mg/dL 05/22/2022 5:35 AM EST [facility] Blood Venous blood specimen / Unknown Venipuncture / Unknown 05/22/2022 4:17 AM EST 05/22/2022 4:49 AM EST Anna Veliz DIE CAST DIE MAKER LAB BLOOD ORDERABLES Maria E l Result Performing Organization Address City/[facility]/ZIP Co de Phone Number [facility] [address] [place] [address] * (ABNORMAL) CBC W/O Differential (05/22/2022 4:17 AM EST) WBC Count 7.35 3.70 - 10.30 10*3/uL LAB HEMATOLOGY METHOD 05/22/2022 5:03 AM EST [facility] RBC Count 4.06 3.90 - 5.20 10*6/uL LAB HEMATOLOGY METHOD 05/22/2022 5:03 AM EST [facility] HGB 11.9 11.2 - 15.7 g/dL LAB HEMATOLOGY METHOD 05/22/2022 5:03 AM EST [facility] HCT 36.7 34.0 - 45.0 % LAB HEMATOLOGY METHOD 05/22/2022 5:03 AM EST [facility] Platelet Count 141(L) 155 - 369 10*3/uL LAB HEMATOLOGY METHOD 05/22/2022 5:03 AM EST [facility] MCV 90 79 - 98 fL LAB HEMATOLOGY METHOD 05/22/2022 5:03 AM EST [facility] MCH 29.3 26.0 - 32.0 pg LAB HEMATOLOGY METHOD 05/22/2022 5:03 AM EST [facility] MCHC 32.4 30.7 - 35.5 g/dL LAB HEMATOLOGY METHOD 05/22/2022 5:03 AM EST [facility] RDW 14.1 11.5 - 14.5 % LAB HEMATOLOGY METHOD 05/22/2022 5:03 AM EST [facility] MPV 10.7 8.8 - 12.5 fL LAB HEMATOLOGY METHOD 05/22/2022 5:03 AM EST [facility] nRBC 0.0 <=0.0 per 100 WBCs LAB HEMATOLOGY METHOD 05/22/2022 5:03 AM EST [facility] Blood Venous blood specimen / Unknown Venipuncture / Unknown 05/22/2022 4:17 AM EST 05/22/2022 4:55 AM EST us Anna Veliz DIE CAST DIE MAKER LAB BLOOD ORDERABLES Maria E l Result [facility] [address] [place] [address] * (ABNORMAL) Comprehensive Metabolic Panel, Plasma (05/22/2022 4:17 AM EST) Pathologist [facility] Glucose, Plasma 78 74 - 99 mg/dL 05/22/2022 5:35 AM EST [facility] BUN, Plasma 11 8 - 23 mg/dL 05/22/2022 5:35 AM EST [facility] Creatinine, Plasma 1.13(H) 0.60 - 1.10 mg/dL 05/22/2022 5:35 AM EST [facility] BUN/Creatinine Ratio 10 05/22/2022 5:35 AM EST [facility] Sodium, Plasma 135(L) 136 - 145 mmol/L 05/22/2022 5:35 AM EST [facility] Potassium, Plasma 3.5(L) 3.7 - 4.8 mmol/L 05/22/2022 5:35 AM EST [facility] Chloride, Plasma 104 97 - 107 mmol/L 05/22/2022 5:35 AM EST [facility] CO2, Plasma 17(L) 22 - 29 mmol/L 05/22/2022 5:35 AM EST [facility] Anion Gap 14 6 - 16 mmol/L 05/22/2022 5:35 AM [facility] Total Calcium, Plasma 8.2(L) 8.9 - 10.2 mg/dL 05/22/2022 5:35 AM [facility] Total Protein 5.2(L) 6.3 - 7.9 g/dL 05/22/2022 5:35 AM [facility] Albumin, Plasma 2.9(L) 3.5 - 5.2 g/dL 05/22/2022 5:35 AM EST [facility] AST, Plasma 158(H) 9 - 36 U/L 05/22/2022 5:35 AM [facility] ALT, Plasma 116(H) 8 - 33 U/L 05/22/2022 5:35 AM EST [facility] Alkaline Phosphatase, Plasma 204(H) 46 - 142 U/L 05/22/2022 5:35 AM [facility] Total Bilirubin, Plasma 1.6(H) 0.2 - 1.1 mg/dL 05/22/2022 5:35 AM EST [facility] eGFRcr 53.4 mL/min/1.7 3m*2 05/22/2022 5:35 AM EST [facility] Comment: Reported eGFRcr in mL/min/1.73m2 is based the CKD-EPI 2020 equation that does not use a race coefficient. Effective 10/29/21 our laboratory changed the eGFR calculation to the CKD-EPI 2020 equation from the previously reported eGFR, based on the MDRD equation. ??For comparisons between the two equations, please see laboratory website: ??[email or web address] Blood Venous blood specimen / Unknown Venipuncture / Unknown 05/22/2022 4:17 AM EST 05/22/2022 4:49 AM EST us Anna Veliz DIE CAST DIE MAKER LAB BLOOD ORDERABLES Maria E l Result Performing Organization Address City/[facility]/ZIP Co de Phone Number [facility] [address] [place] [address] * POCT glucose meter (05/21/2022 8:22 PM EST) [facility] Signature POCT Glucose 86 74 - 99 mg/dL 05/21/2022 8:25 PM EST [facility] Comment:Accuracy of a glucos e result [...] for testing. Comment 05/21/2022 8:25 PM EST [facility] Pelt Inspector ID [email or web address] 05/21/2022 8:25 PM EST [facility] Device ID [id number] 05/21/2022 8:25 PM EST [facility] Specimen Type POC Capillary 05/21/2022 8:25 PM EST [facility] Blood Capillary blood specimen / Unknown 05/21/2022 8:22 PM EST 05/21/2022 8:25 PM EST us Artemio Dorsey MD LAB POINT OF CAR E TEST DOCKED DEVICE UNSOLICITED RESULTS Final Result Performing Organization Address City/[facility]/ZIP Co de Phone Number [facility] [address] [place] [address] * ERCP 1 - Grade 1 (05/21/2022 1:36 PM EST) Anatomical Region Laterality Modality Endoscopy Narrative 05/27/2022 11:56 AM EST Table formatting from the original result was not included. Impression The creel clerk film appeared normal. The patient was in the prone position. The duodenoscope was passed under direct vision through the mouth and advanced to the second portion of the duodenum. 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 Located on the rim of the diverticulum. [...] abdominal pain, fever, gastrointestinal bleeding and call sharepoint solutions developer GI if present Indication Choledocholithiasis with acute cholecystitis Medications See anesthesia record for anesthesia administered medications. Staff Staff Role Mercedes Graves CRNA CANE WEIGHER Rocco Johnson MD Proceduralist Benjamin Lynn MD Anesthesiologist Desmond Murray Endo Nurse Daryn Cordova MD Proceduralist Daryn Polo, RN Endo Nurse Shira Callahan RN Endo Nurse [...] were documented in this log. Findings The creel clerk film appeared normal. The patient was in the prone position. The duodenoscope was passed under direct vision through the mouth and advanced to the second portion of the duodenum. 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 The major papilla was marshall. Located on the rim of the diverticulum. [...] EST Exam/Procedure: FL ERCP ordered by DARYN CORDOVA, [id number] CLINICAL INDICATION: ERCP TECHNIQUE: 8 retained images from ERCP performed by Physician Endoscopist. Fluoroscopy Time: 2.9 minutes. COMPARISON: CT abdomen pelvis 05/20/2022, MR abdomen 05/20/2022 FINDINGS: Survey Manager: Lumbar fusion hardware. Biliary Ducts: Normal caliber [...] 05/21/2022 Exam/Procedure: FL ERCP ordered by DARYN CORDOVA, [id number] CLINICAL INDICATION: ERCP TECHNIQUE: 8 retained images from ERCP performed by Physician Endoscopist. Fluoroscopy Time: 2.9 minutes. COMPARISON: CT abdomen pelvis 05/20/2022, MR abdomen 05/20/2022 FINDINGS: Survey Manager: Lumbar fusion hardware. Biliary Ducts: Normal caliber [...] signing this report, I, the attending physician, attjose [email or web address] I have personally reviewed the images/data for the aboveexamination(s) and agree with the final edited report. Dictated by Aric Perkins DO on 05/21/2022 3:46 PM Signed by Vikash Aburto MD on 05/21/2022 4:03 PM Daryn Cordova MD IMG FLUOROSCOPY PROCEDURES F inal Result * POCT glucose meter (05/21/2022 10:50 AM EST) POCT Glucose 92 74 - 99 mg/dL 05/21/2022 1:50 PM EST [facility] Comment:Accuracy of a glucos e [...] for testing. Comment 05/21/2022 1:50 PM EST [facility] Pelt Inspector ID Nain Parmar [id number] 1:50 PM EST [facility] Device ID [id number] 05/21/2022 1:50 PM EST [facility] Specimen Type POC Capillary 05/21/2022 1:50 PM EST [facility] Blood Capillary blood specimen / Unknown 05/21/2022 10:50 AM EST 05/21/2022 1:50 PM EST us Artemio Dorsey MD LAB POINT OF CAR E TEST DOCKED DEVICE UNSOLICITED RESULTS Final Result [facility] [address] [place] [id number] * (ABNORMAL) POCT glucose meter (05/21/2022 6:01 AM EST) POCT Glucose 104(H) 74 - 99 mg/dL 05/21/2022 6:05 AM EST [facility] Comment:Accuracy of a glucos e [...] Comment 05/21/2022 6:05 AM EST [facility] Pelt Inspector ID Barbara Fuentes 05/21/19 6:05 AM EST [facility] Device ID [id number] 05/21/2022 6:05 AM EST [facility] Specimen Type POC Capillary 05/21/2022 6:05 AM EST [facility] Blood Capillary blood specimen / Unknown 05/21/2022 6:01 AM EST 05/21/2022 6:05 AM EST Artemio Dorsey MD LAB POINT OF CAR E TEST DOCKED DEVICE UNSOLICITED RESULTS Final Result Performing Organization Address City/State/[facility] Co de Phone Number [facility] [address] [place] [address] * SARS CoV-2/COVID-19 by PCR (05/21/2022 1:24 AM EST) SARS CoV-2/COVID-1 9 RNA PCR Result Not Detected Not Detected 05/21/2022 3:45 AM EST [facility] Swab Nasopharyngeal structure / Unknown Non-blood [...] clinical signs and symptoms consistent with COVID-19. us Irma Reynoso MD LAB MICROBIOLOGY - GENERAL ORDERABLES Final Result Performing Organization Address [facility] de Phone Number [facility] [address] [place] [address] * (ABNORMAL) Multi Drug Resistance Test (05/21/2022 1:24 AM EST) Culture Methicillin-Resis tant Staphylococcus aureus(AA) 05/23/2022 7:26 AM EST [facility] Comment: The organism value for this result has been updated. These results have been appended to the previously preliminary verified report. <null> has been updated to reportable. Swab (Nares and Carmen Rectal) Non-blood Collection / Unknown 05/21/2022 1:24 AM EST 05/21/2022 2:53 AM EST Irma Reynoso MD LAB MICROBIOLOGY - GENERAL ORDERABLES Final Result Performing Organization Address [facility] de Phone Number [facility] [address] [place] [address] * Lactate, venous (05/21/2022 1:20 AM EST) Lactate, Venous, Whole Blood 0.7 0.5 - 2.2 mmol/L LAB HEMATOLOGY METHOD 05/21/2022 1:27 AM EST [facility] Blood Venous blood specimen / Unknown Venipuncture / Unknown 05/21/2022 1:20 AM EST 05/21/2022 1:25 AM EST Artemio Dorsey MD LAB BLOOD ORDERABLES Fin al Result Performing Organization Address [facility] Co de Phone Number [facility] [address] [place] [address] * Phosphorus, Plasma (05/21/2022 1:20 AM EST) Phosphorus, Plasma 2.5 2.5 - 4.5 mg/dL 05/21/2022 2:27 AM EST [facility] Blood Venous blood specimen / Unknown Venipuncture / Unknown 05/21/2022 1:20 AM EST 05/21/2022 1:29 AM EST Artemio Dorsey MD LAB BLOOD ORDERABLES Fin al Result [facility] [address] [place] [address] * (ABNORMAL) Magnesium, Plasma (05/21/2022 1:20 AM EST) Pathologist [facility] Magnesium, Plasma 1.7(L) 1.9 - 2.4 mg/dL 05/21/2022 2:27 AM EST [facility] Blood Venous blood specimen / Unknown Venipuncture / Unknown 05/21/2022 1:20 AM EST 05/21/2022 1:29 AM EST Artemio Dorsey MD LAB BLOOD ORDERABLES Fin al Result Performing Organization Address City/[facility] Co de Phone Number [facility] [address] [place] [address] * (ABNORMAL) CBC W/O Differential (05/21/2022 1:20 AM EST) Pathologist [facility] WBC Count 10.34(H) 3.70 - 10.30 10*3/uL LAB HEMATOLOGY METHOD 05/21/2022 1:38 AM EST [facility] RBC Count 3.94 3.90 - 5.20 10*6/uL LAB HEMATOLOGY METHOD 05/21/2022 1:38 AM EST [facility] HGB 11.4 11.2 - 15.7 g/dL LAB HEMATOLOGY METHOD 05/21/2022 1:38 AM EST [facility] HCT 35.6 34.0 - 45.0 % LAB HEMATOLOGY METHOD 05/21/2022 1:38 AM EST [facility] Platelet Count 151(L) 155 - 369 10*3/uL LAB HEMATOLOGY METHOD 05/21/2022 1:38 AM EST [facility] MCV 90 79 - 98 fL LAB HEMATOLOGY METHOD 05/21/2022 1:38 AM EST [facility] MCH 28.9 26.0 - 32.0 pg LAB HEMATOLOGY METHOD 05/21/2022 1:38 AM EST [facility] MCHC 32.0 30.7 - 35.5 g/dL LAB HEMATOLOGY METHOD 05/21/2022 1:38 AM EST [facility] RDW 13.7 11.5 - 14.5 % LAB HEMATOLOGY METHOD 05/21/2022 1:38 AM EST [facility] MPV 10.1 8.8 - 12.5 fL LAB HEMATOLOGY METHOD 05/21/2022 1:38 AM EST [facility] nRBC 0.0 <=0.0 per 100 WBCs LAB HEMATOLOGY METHOD 05/21/2022 1:38 AM EST [facility] Blood Venous blood specimen / Unknown Venipuncture / Unknown 05/21/2022 1:20 AM EST 05/21/2022 1:29 AM EST Artemio Dorsey MD LAB BLOOD ORDERABLES Fin al Result Performing Organization Address City/State/[facility] Co de Phone Number [facility] [address] [place] [phone] * (ABNORMAL) Comprehensive Metabolic Panel, Plasma (05/21/2022 1:20 AM EST) Glucose, Plasma 113(H) 74 - 99 mg/dL 05/21/2022 2:27 AM [facility] BUN, Plasma 14 8 - 23 mg/dL 05/21/2022 2:27 AM [facility] Creatinine, Plasma 1.00 0.60 - 1.10 mg/dL 05/21/2022 2:27 AM EST [facility] BUN/Creatinine Ratio 14 05/21/2022 2:27 AM [facility] Sodium, Plasma 134(L) 136 - 145 mmol/L 05/21/2022 2:27 AM [facility] Potassium, Plasma 4.0 3.7 - 4.8 mmol/L 05/21/2022 2:27 AM [facility] Chloride, Plasma 104 97 - 107 mmol/L 05/21/2022 2:27 AM [facility] CO2, Plasma 20(L) 22 - 29 mmol/L 05/21/2022 2:27 AM EST [facility] Anion Gap 10 6 - 16 mmol/L 05/21/2022 2:27 AM [facility] Total Calcium, Plasma 8.4(L) 8.9 - 10.2 mg/dL 05/21/2022 2:27 AM [facility] Total Protein 5.1(L) 6.3 - 7.9 g/dL 05/21/2022 2:27 AM EST [facility] Albumin, Plasma 3.2(L) 3.5 - 5.2 g/dL 05/21/2022 2:27 AM EST [facility] AST, Plasma 489(H) 9 - 36 U/L 05/21/2022 2:27 AM EST [facility] ALT, Plasma 217(H) 8 - 33 U/L 05/21/2022 2:27 AM EST [facility] Alkaline Phosphatase, Plasma 221(H) 46 - 142 U/L 05/21/2022 2:27 AM EST [facility] Total Bilirubin, Plasma 2.2(H) 0.2 - 1.1 mg/dL 05/21/2022 2:27 AM EST [facility] eGFRcr 61.9 mL/min/1.7 3m*2 05/21/2022 2:27 AM EST [facility] Comment: Reported eGFRcr in mL/min/1.73m2 is based the CKD-EPI 2021 equation that does not use a race coefficient. Effective 10/29/21 our laboratory changed the eGFR calculation to the CKD-EPI 2021 equation from the previously reported eGFR, based on the MDRD equation. ??For comparisons between the two equations, please see laboratory website: ??[email or web address] Blood Venous blood specimen / Unknown Venipuncture / Unknown 05/21/2022 1:20 AM EST 05/21/2022 1:29 AM EST Artemio Dorsey MD LAB BLOOD ORDERABLES Fin al Result [facility] [address] [place] [phone] documented in this encounter Visit Diagnoses Diagnosis [...] Anuradha 05/21/22 at 0000, Until Discontinued, Routine Given 05/23/2022 8:46 AM EST 1,000 mg Given 05/23/2022 1:13 AM EST 1,000 mg Given 05/22/2022 8:23 PM EST 1,000 mg atorvastatin (Lipitor) tablet 20 mg 20 mg, Oral, Nightly, First dose on Anuradha 05/21/22 at 0200, Until Discontinued, Routine Given 05/22/2022 8:24 PM EST 20 mg Given 05/21/2022 8:13 PM EST 20 mg Given 05/21/2022 3:13 AM EST 20 mg bupivacaine PF (Marcaine) 0.25 % injection As needed, Starting on Wed05/22/22 at 1309, Until Wed05/22/22 at 1349, Routine, Intraprocedure Given 05/22/2022 1:09 PM EST 30 mL dextrose 10 % (D10W) bolus 125 mL [...] EST 40 mg Le ft Lower Abdomen gabapentin (Neurontin) capsule 300 mg 300 mg, Oral, Daily, First dose on Wed05/23/22 at 0900, Until Discontinued, Routine Given 05/23/2022 [...] less than or equal to 50 mg/dL HYDROmorphone (Dilaudid) injection 0.25 mg 0.25 mg, [...] Given 05/22/2022 6:09 AM EST 25 mcg methocarbamol (Robaxin) tablet 500 mg 500 mg, [...] Given 05/21/2022 8:05 AM EST 4 mg oxyCODONE (Roxicodone) immediate release [...] Bag 05/22/2022 8:23 PM EST 4.5 g Povidone-Iodine 5 % swab solution 1 Swab [...] care, Before and after each medication infusion topiramate (Topamax) tablet 50 mg 50 mg, Oral, 2 times daily, Hazardous Drug-Tier 2 Precautions. , First dose on Anuradha 05/21/22 at 0900 Given 05/23/2022 8:46 AM EST [...] Provider)1412 (MAR Unhold - Provider: Lesli Wing, LISBETH)1414 (Given - Provider: Lesli Wing, RN)202 (Given - Provider: Estela Landers RN) 0113 [...] LISBETH)2012 (Given - Provider: Brenda Rubio, RN) 1153 (MAR Hold - Provider: Automatic Transfer Provider - Reason: Patient in procedure)1514 (MAR Unhold - Provider: Automatic Transfer Provider)2023 (Given - Provider: Estela Landers RN) enoxaparin (Lovenox) syringe 40 mg 40 mg, Subcutaneous, Daily, First dose on Wed05/22/22 at 0900, Until Discontinued, Routine 0831 (Given - Provider: Mela Arnold, LISBETH)1154 (MAR Hold - Provider: Automatic Transfer Provider - Reason: Patient in procedure)1514 (MAR Unhold - Provider: Automatic Transfer Provider) 0846 (Given - Provider: Zainab Zhang, LISBETH) gabapentin (Neurontin) capsule 200 mg (CANCELED) 200 mg, Oral, 3 times daily, First dose on Anuradha 05/21/22 at 0900, Until Discontinued, Routine 0949 (Given - Provider: Casey Eid, LISBETH)1703 (Not Given - Provider: Casey Eid RN - Reason: Patient in procedure)2012 (Given - Provider: Brenda Rubio, LISBETH) 0831 (Given - Provider: Mela Arnold RN)1154 (MAR Hold - Provider: Automatic Transfer Provider [...] Discontinued, Routine 2023 (Given - Provider: Estela Landers RN) heparin (porcine) injection 5,000 Units (CANCELED) 5,000 [...] Discontinued, Routine 0609 (Given - Provider: Brenda Rubio RN)1154 (JUN Hold - Provider: Automatic Transfer Provider - Reason: Patient in procedure)1514 (JUN Unhold - Provider: Automatic Transfer Provider) 0558 (Given - Provider: Estela Landers RN) magnesium sulfate IVPB 2 g (COMPLETED) 2 g, Intravenous, Once, 1 dose, On Anuradha 05/21/22 at 0600, Routine 0947 (New Bag - Provider: Casey Eid RN) methocarbamol (Robaxin) tablet 500 mg (CANCELED) 500 mg, Oral, Every 8 hours, First dose on Wed05/20/22 at 2330, Until Discontinued, Routine 0006 (Given - Provider: Barbara Fuentes RN)0949 (Given - Provider: Casey Eid RN)152 (Not Given - Provider: Casey Eid RN - Reason: Patient in procedure) 11 (Given - Provider: Brenda Rubio, LISBETH)0832 (Given - Provider: Mela Arnold, LISBETH)1153 (MAR Hold - Provider: Automatic Transfer Provider - Reason: Patient in procedure)1400 (Dose Auto Held - Provider: Automatic Transfer Provider)1432 (MAR Unhold - Provider: Dwight Valdez MD) methocarbamol [...] Anuradha 05/21/22 at 0900, Until Discontinued, Routine 09 (Given - Provider: Casey Eid, LISBETH)2012 (Given - Provider: Brenda Rubio, LISBETH) 0832 (Given - Provider: Mela Arnold, LISBEHT)1153 (MAR Hold - Provider: Automatic Transfer Provider - Reason: Patient in procedure)151 (MAR Unhold - Provider: Automatic Transfer Provider)2023 (Given - Provider: Estela Landers RN) 0845 (Given - Provider: Zainab Zhang, LISBETH) morphine CR (MS Contin) 12 hr tablet 30 mg 30 mg, Oral, 2 times daily, First dose on Wed05/22/22 at 2100, Until Discontinued, Routine 2023 (Given - Provider: Estela Landers RN) 0845 [...] Routine 0949 (Given - Provider: Casey Eid, LISBETH) 0832 (Given - Provider: Mela Arnold, RN)1153 (MAR Hold - Provider: Automatic Transfer Provider - Reason: Patient in procedure)1514 (MAR Unhold - Provider: Automatic Transfer Provider) 0638 (Given - Provider: Estela Landers, LISBETH) piperacillin-tazobacta m (Zosyn) 4.5 g in sodium chloride 0.9% 100 mL IVPB (Mini-Bag Plus) 4.5 g, Intravenous, Every 6 hours, First dose on Anuradha 05/21/22 at 0045, Until Discontinued, Routine 0105 (New Bag - Provider: Barbara Fuentes, LISBETH)0558 (New Bag - Provider: Barbara Fuentes RN)1522 (Not Given - Provider: Casey Eid RN - Reason: Patient in procedure)2013 (New Bag - Provider: Brenda Rubio RN) 0209 (New Bag - Provider: Brenda Rubio RN)0937 (New Bag - Provider: Casey Eid RN)1303 (Bolus - Provider: Masood Olson CRNA)2023 (New Bag - Provider: Estela Landers RN) 0114 (New Bag - Provider: Estela Landers, LISBETH)0846 (New Bag - Provider: Zainab Zhang, LISBETH)1400 (Canceled Entry [...] 0816 (Given - Provider: Casey Eid RN)1154 ([facility] Hold - Provider: Automatic Transfer Provider - Reason: Patient in procedure)1514 ([facility] Unhold - Provider: Automatic Transfer Provider) 1139 (Given - Provider: Zainab Zhang, LISBETH) sodium chloride 0.9 % flush 10 mL (CANCELED)(Linked Group 1) 10 mL, Intravenous, Every 12 hours, First dose on Wed05/21/22 at 1145, Until Discontinued, Routine, Holding - Preprocedure 1348 (Canceled Entry - Provider: Casey Eid RN) 0012 (Given - Provider: Brenda Rubio, LISBETH)1154 ([facility] Hold - Provider: Automatic Transfer Provider - Reason: Patient in procedure)1400 (Canceled Entry - Provider: Casey Eid RN)1514 ([facility] Unhold - Provider: Automatic Transfer Provider) Sodium Phosphate-NaCl IVPB 15 mmol 15 mmol (rounded from 9.488 mmol = 0.16 mmol/kg ? 59.3 kg [place] weight), Intravenous, Once, 1 dose, On Wed05/22/22 at 0600, Routine 1154 ([facility] Hold - Provider: Automatic Transfer Provider - Reason: Patient in procedure)1400 (Dose Auto Held - Provider: Automatic Transfer Provider)1514 ([facility] Unhold - Provider: Automatic Transfer Provider) topiramate (Topamax) tablet 50 mg 50 mg, Oral, 2 times daily, Hazardous Drug-Tier 2 Precautions. , First dose on Wed05/21/22 at 0900 0949 (Given - Provider: Casey Eid RN)2021 (Given - Provider: Brenda Rubio, RN) 0832 (Given - Provider: Mela Arnold, LISBETH)1153 ([facility] Hold - Provider: Automatic Transfer Provider - Reason: Patient in procedure)1514 ([facility] Unhold - Provider: Automatic Transfer Provider)2024 (Given - Provider: Estela Landers RN) 0846 (Given - Provider: Zainab Zhang, LISBETH) traZODone (Desyrel) tablet 50 mg 50 mg, Oral, Nightly, First dose on Anuradha 05/21/22 at 0200, Until Discontinued, Routine 0314 (Given - Provider: Barbara Fuentes, RN)2012 (Given - Provider: Brenda Rubio, LISBETH) 1154 ([facility] Hold - Provider: Automatic Transfer Provider - Reason: Patient in procedure)1514 ([facility] Unhold - Provider: Automatic Transfer Provider)2022 (Given - Provider: Estela Landers, RN) Continuous Medication Order 05/21/2022 05/22/2022 05/23/2022 dextrose 5 % and lactated Ringer's infusion 75 mL/hr, Intravenous, Continuous, Starting on 05/20/22 at 2330, Until 05/23/22 at 1445, Routine 1409 (New Bag - Provider: Alex Wing RN) PRN Medication Order 05/21/2022 05/22/2022 05/23/2022 bupivacaine PF (Marcaine) 0.25 % injection (CANCELED) As needed, Starting on Wed05/22/22 at 1309, Until Wed05/22/22 at 1349, Routine, Intraprocedure 1309 (Given - Provider: Irma Reynoso MD) dextrose 10 % (D10W) bolus 125 mL(Linked Group 2) 125 mL (12.5 g), Intravenous, Every 15 min PRN, Starting on Anuradha 05/21/22 at 0356, Until 05/23/22 at 1445, Administer over 15 Minutes, Routine, POC BG 51 to 70 mg/dL 1154 ([facility] Hold - Provider: Automatic Transfer Provider - Reason: Patient in procedure)1514 ([facility] Unhold - Provider: Automatic Transfer Provider) dextrose 10 % (D10W) bolus 250 mL(Linked Group 3) 250 mL (25 g), Intravenous, Every 15 min PRN, Starting on Anuradha 05/21/22 at 0356, Until 05/23/22 at 1445, Administer over 15 Minutes, Routine, POC BG is less than or equal to 50 mg/dL 1154 ([facility] Hold - Provider: Automatic Transfer Provider - Reason: Patient in procedure)1514 ([facility] Unhold - Provider: Automatic Transfer Provider) fentaNYL [...] than or equal to 70 mg/dL, 1154 ([facility] Hold - Provider: Automatic Transfer Provider - Reason: Patient in procedure)1514 ([facility] Unhold - Provider: Automatic Transfer Provider) glucose (Glutose) 40 % oral gel 15 grams of glucose 15 grams of glucose, Sublingual, Every 15 min PRN, Starting on Anuradha 05/21/22 at 0356, Until 05/23/22 at 1445, Routine, low blood sugar, POC BG 71 to 89 mg/dL 1154 ([facility] Hold - Provider: Automatic Transfer Provider - Reason: Patient in procedure)1514 ([facility] Unhold - Provider: Automatic Transfer Provider) glucose (Glutose) 40 % oral gel 15 grams of glucose(Linked Group 2) 15 grams of glucose, Sublingual, Every 15 min PRN, Starting on Anuradha 05/21/22 at 0356, Until 05/23/22 at 1445, Routine, low blood sugar, BG 51?to 70 mg/dL 1154 ([facility] Hold - Provider: Automatic Transfer Provider - Reason: Patient in procedure)1514 ([facility] Unhold - Provider: Automatic Transfer Provider) glucose (Glutose) 40 % oral gel 30 grams of glucose(Linked Group 3) 30 grams of glucose, Sublingual, Every 15 min PRN, Starting on Anuradha 05/21/22 at 0356, Until 05/23/22 at 1445, Routine, low blood sugar, POC BG is less than or equal to 50 mg/dL 1154 ([facility] Hold - Provider: Automatic Transfer Provider - Reason: Patient in procedure)1514 ([facility] Unhold - Provider: Automatic Transfer Provider) HYDROmorphone (Dilaudid) injection 0.25 mg 0.25 mg, Intravenous, Every 3 hours PRN, Starting on Anuradha 05/21/22 at 0022, Until 05/23/22 at 1445, Routine, severe pain 1153 (JUN Hold - Provider: Automatic Transfer Provider - Reason: Patient in procedure)1514 ([facility] Unhold - Provider: Automatic Transfer Provider)1814 (Canceled Entry - Provider: Casey Eid, RN) HYDROmorphone (Dilaudid) injection 0.25 mg 0.25 mg, Intravenous, Every 2 hour PRN, Starting on 05/22/22 at 1432, Until 05/23/22 at 1445, Routine, [...] LISBETH)2012 (Given - Provider: Brenda Rubio, LISBETH) 1154 (JUN Hold - Provider: Automatic Transfer Provider - Reason: Patient in procedure)151 ([facility] Unhold - Provider: Automatic Transfer Provider) ondansetron (Zofran) injection 4 mg 4 mg, Intravenous, Every 6 hours PRN, Starting on Wed05/20/22 at 2304, Until 05/23/22 at 1445, Routine, nausea, vomiting 0006 (Given - Provider: Barbara Fuentes RN)0805 (Given - Provider: Casey Eid, RN)1612 (Given - Provider: Casey Eid, LISBETH) 0408 (Given - Provider: Brenda Rubio, RN)1153 (JUN Hold - Provider: Automatic Transfer Provider - Reason: Patient in procedure)1514 ([facility] Unhold - Provider: Automatic Transfer Provider) ondansetron [...] Casey Eid RN)1457 (Given - Provider: Shannan Palmer, LISBETH)1830 (Given - Provider: Casey Eid, RN)2245 (Given - Provider: Brenda Rubio, LISBETH) 0835 (Not Given - Provider: Mela Arnold RN - Reason: Patient/family refused)1153 (MAR Hold - Provider: Automatic Transfer Provider - Reason: Patient in procedure)1413 (MAR Unhold - Provider: Lesli Wing RN)1415 (Given - Provider: Lesli Wing RN) 0114 (Not Given - Provider: Estela Landers RN - Reason: Hold for condition: must add comment )0247 (Given - Provider: Estela Landers RN)0859 (See Alternative - Provider: Zainab Zhang, RN)1219 (Given - Provider: Zainab Zhang, RN) oxyCODONE (Roxicodone) immediate release tablet 5 mg(Linked Group 4) 5 mg, Oral, Every 4 hours PRN, Starting on Wed05/20/22 at 2305, Until 05/23/22 at 1445, Routine, moderate pain 0006 (See Alternative - Provider: Barbara Fuentes RN)0502 (See Alternative - Provider: Barbara Fuentes RN)0949 (See Alternative - Provider: Casey Eid RN)1457 (See Alternative - Provider: Shannan Palmer, LISBETH)1830 (See Alternative - Provider: Casey Eid RN)2245 (See Alternative - Provider: Brenda Rubio RN) 0835 (See Alternative - Provider: Mela Arnold RN)1153 (MAR Hold - Provider: Automatic Transfer Provider - Reason: Patient in procedure)1413 (MAR Unhold - Provider: Lesli Wing, RN)1415 (See Alternative - Provider: Lesli Wing, RN) 0114 (See Alternative - Provider: Estela Landers, RN)0247 (See Alternative - Provider: Estela Landers, RN)0859 (Given - Provider: Zainab Zhang, RN)1219 (See Alternative - Provider: Zainab Zhang, RN) sodium chloride 0.9 % flush 10 mL(Linked Group 5) 10 mL, Intravenous, Every 12 hours PRN, Starting on Wed05/20/22 at 2301, Until 05/23/22 at 1445, Routine, line care 1102 (Given - Provider: Vikash Lara) 1153 ([facility] Hold - Provider: Automatic Transfer Provider - Reason: Patient in procedure)1514 ([facility] Unhold - Provider: Automatic Transfer Provider) sodium chloride 0.9 % flush 10 mL(Linked Group 5) 10 mL, Intravenous, As needed, Starting on Wed05/20/22 at 2301, Until 05/23/22 at 1445, Routine, line care, Before and after each medication infusion 1153 ([facility] Hold - Provider: Automatic Transfer Provider - Reason: Patient in procedure)1514 ([facility] Unhold - Provider: Automatic Transfer Provider) [...] 10 mL, Intravenous, As needed, Starting on 05/20/22 at 2301, Until 05/23/22 at 1445, Routine, line care, Before and after each medication infusion documented in this encounter Additional Health Concerns Infection Onset Date Last Indicated Resolved Time MRSA Comment:MRSA (methicillin resistant Staphylococcus aureus) 04/17/2020 05/21/2022 Assessment Noted Time A fall risk assessment has been complete d for the patient 04/23/2021 1:07 PM EST documented as of this encounter Care Teams Box Inspector Relationship Specialty Start Date End Date Juan José Kendall MD [address] [place] [address] [place] [id number] PCP - General 03/12/21 documented as of this encounter
--- OUTSIDE RECORDS SUMMARY | 2024-03-11 09:26 | XMS_ITS | Encounter Summary ---
Author Organization [facility] Address [address] [place] [address] Care Team Providers Care Rn Acls Name Role Phone Blu Birmingham MD Primary Care Provider [phone] Encounter Details Date Type Department Care Team (Latest Contact Info) Description 02/25/2021 Travel Social History Tobacco Use Types Packs/Day [...] documented as of this encounter Care Teams Rn Acls Relationship Specialty Start Date End Date Blu Birmingham MD [address] [place] [id number] PCP - General 08/16/20 03/11/21 documented as of this encounter
--- OUTSIDE RECORDS SUMMARY | 2024-03-11 09:26 | XMS_ITS | Encounter Summary ---
Author Organization [facility] Address [address] [id number] Care Team Providers Care Recreational Specialist Name Role Phone Juan José Kendall MD Primary Care Provider [phone] Reason for Visit * Auth/Cert (Routine) Specialty Diagnoses / Procedures Referred By Contac t Referred To Contact Diagnoses Choledocholithiasis with acute cholecystitis CHOLEDOCHOLITHIASIS, CHOLECYSTITIS Artemio Dorsey MD [address] [facility] [address] [place] [address] Phone: tel: fax: [facility]patient [address] [place] [address] Phone: tel: Referral ID Status Reason Start Date Expiration Date Visits Re quested Visits Authorized [id number] 1 1 Encounter Details Date Type Department Care Team (Late st Contact Info) Description 05/22/2022 11:52 AM EST Anesthesia Event [facility] OPERATING ROOM [address] [place] [address] Masood Olson CRNA [address] [place] [address] Quiana Fisher APRN [address] [place] [address] Anesthesia Record Procedure Summary Procedure Name Responsible Anesthesiologist Anesthesia Start Time Anesthesia Stop Time CHOLECYSTECTOMY, LAPAROSCOPIC Masood Olson CRNA 05/22/22 1152 05/22/22 1402 Events Date Time Event Comment 05/22/2022 1152 An Start 1153 In Room 1155 An Start Data 1206 An Induction The patient was reevaluated immediately before moderate or deep sedation use and before anesthesia induction. 1208 An Intubation 1209 Anesthesia Ready 1238 Proc Start 1340 An Extubation 1341 Proc Fin 1348 an stop data 1349 Out of Room 1402 Handoff to Receiving I compl eted my handoff to the receiving clinician during which we: 1. Identified the patient 2. Identified the responsible provider 3. Reviewed the pertinent medical history 4. Discussed the surgical course 5. Reviewed intra-op anesthesia management and issues during anesthesia 6. Set expectations for post-procedure period 7. Allowed opportunity for questions and acknowledgement of understanding. 1402 An Stop Meds Name Total fentaNYL (Sublimaze) injection 50 mcg/mL 150 mcg lidocaine PF (Xylocaine-MPF) 2% 60 mg propofol (Diprivan) injection 10 mg/mL 1 40 mg rocuronium (ZeMuron) injection 10 mg/mL 70 mg dexamethasone (Decadron) injection 4 mg/ mL 4 mg ondansetron (Zofran) injection 2 mg/mL 4 mg sugammadex (Bridion) injection 100 mg/mL 200 mg glycopyrrolate (Robinul) injection 0.2 m g/mL 0.2 mg HYDROmorphone PF (Dilaudid) injection 1 mg/mL 2 mg dexmedetomidine (Precedex) injection in NS 4 mcg/mL 24 mcg piperacillin-tazobactam (Zos yn) 4.5 g in sodium chloride 0.9% 100 mL IVPB (Mini-Bag Plus) 4.5 g lactated Ringer's infusion 1,800 mL * Agents Name O2 N2O Air Isoflurane Inspired Isoflurane N2O Inspired N2O * Blood No blood administrations on file. Lines, Drains, and Airways Type Details Placement Removal Wound 05/22/22; 1241; N; Y es; Incision; Abdomen; Upper 05/22/22 1241 by Anna Arora RN Peripheral IV Placement Date: 05/06 09/25; Placement Time: 1255 (created via procedure documentation); Catheter Size: 20 G; Orientation: Right; Location: Hand; Local Anesth: None; Technique: Anatomical landmarks; Insertion Attempts: 1; Removal Date: 05/23/22; Removal Time: 1127 05/21/22 1255 by Mercedes Graves 05/23/22 1127 by Zainab Zhang RN ETT Placement Date: 05/06 10/25; Placement Time: 1208 (created via procedure documentation); Mask Ventilation: 1; Technique: Direct laryngoscopy; Type: ETT - single; Single Lumen Tube Size: 7 mm; Cuffed: Yes; Laryngoscope: Shanel; Blade Size: 3; Location: Oral; Grade View: Grade I; Insertion Attempts: 1; Placement Verification: Auscultation, Capnometry; Airway Comments: Atraumatic. No change to dentition. ; Placed by: DELIVERER MERCHANDISE; Removal Date: 05/22/22; Removal Time: 1340 05/22/22 1208 by Masood Olson CRNA 05/22/22 1340 by Masood Olson CRNA Peripheral IV Placement Date: 05/06 10/25; Placement Time: 1238 (created via procedure documentation); Catheter Size: 18 G; Orientation: Left; Location: Arm; Technique: Anatomical landmarks; Removal Date: 05/23/22; Removal Time: 1127 05/22/22 1238 by Masood Olson CRNA 05/23/22 1127 by Zainab Zhang RN documented [...] Miscellaneous Notes * Anesthesia Postprocedure Evaluation - Masood Olson CRNA - 05/22/2022 2:02 PM EST Patient: Trudi Blair Anesthesia Type: general Vitals Value Taken Time BP 95/55 05/22/22 1400 Temp 97.8 05/22/22 1402 Pulse 86 05/22/22 1401 Resp 14 05/22/22 1401 SpO2 100 % 05/22/22 1401 Vitals shown include unvalidated device data. Anesthesia Post Evaluation Patient location during evaluation: PACU Patient participation: complete - patient participated Level of consciousness: awake Pain management: adequate (pain score 0-3) Airway patency: natural airway Cardiovascular status: acceptable and blood pressure returned to baseline Respiratory status: acceptable, spontaneous ventilation and face mask Hydration status: stable No notable events documented. * Anesthesia Procedure Notes - Masood Olson CRNA - 05/22/2022 12:38 PM EST Associated Order(s): Peripheral IV Peripheral IV Date/Time: 05/22/2022 12:38 PM Placement Needle size: 18 G Location: arm Site prep: alcohol Technique: anatomical landmarks * Anesthesia Procedure Notes - Masood Olson CRNA - 05/22/2022 12:25 PM EST Associated Order(s): Airway Airway Date/Time: 05/22/2022 12:08 PM Urgency: elective Airway not difficult General Information and Staff Patient location during procedure: OR DELIVERER MERCHANDISE: Masood Olson CRNA Performed: KALPESH Indications and Patient Condition [...] Placement verified by: chest auscultation and capnometry Cuff volume (mL): 4 Measured from: teeth ETT to teeth (cm): 21 Number of attempts at approach: 1 Additional Comments Atraumatic. No change to dentition. * Anesthesia Preprocedure Evaluation - Alejandro Cardoso DO - 05/22/2022 6:21 AM EST Patient: Trudi Blair Procedure Information Date/Time: 05/22/22 1220 Procedure: CHOLECYSTECTOMY, LAPAROSCOPIC Location: [facility] Surgeons: Irma Reynoso MD HPI Trudi Blair is a 66 y.o. female with PMHx of chronic pain, recurrent MRSA infections, and GERD with a hiatal hernia??presenting with??epigastric/right upper quadrant pain that presents with Choledocholithiasis with acute cholecystitis. C/o nausea and 9/10 epigastric pain. Nausea prev with anesthesia. Prev leg amputation. Denies cardioresp issues. Controlled gerd. 05/21 ERCP: Mac 3, 7.0 ETT, grade 1 view, 1 attempt NPO STATUS Activity Level/METS Relevant Problems Cardio (+) Primary hypertension GI (+) Gastroesophageal reflux disease (+) Hiatal hernia Other (+) Staphylococcal arthritis of right knee (CMS/HCC) SOCIAL HX Social History Tobacco Use Smoking Status Never Smokeless Tobacco Never Social History Substance and Sexual Activity Alcohol Use Never Social History Substance and Sexual Activity Drug Use Never SURGICAL HX Past Surgical History: Procedure Laterality Date ??? APPENDECTOMY ??? BACK SURGERY N/A Back surgery from [facility] ??? DILATION AND CURETTAGE OF UTERUS ??? FOOT SURGERY Bilateral Foot surgery from [facility] ??? HYSTERECTOMY N/A Hysterectomy from [facility] ??? KNEE ARTHROPLASTY Bilateral ??? KNEE SURGERY Bilateral Knee Surgery from [facility] ??? LEG AMPUTATION R AKA ??? SPINAL FUSION lumbar ALLERGIES Allergies Allergen Reactions ??? Clarithromycin Other and Unknown severe acid reflux MEDICATIONS Scheduled ??? acetaminophen, 1,000 mg, Oral, q6h TAJ ??? atorvastatin, 20 mg, Oral, Nightly ??? enoxaparin, 40 mg, Subcutaneous, Daily ??? gabapentin, 200 mg, Oral, TID ??? levothyroxine, 25 mcg, Oral, q AM ??? methocarbamol, 500 mg, Oral, q8h ??? midodrine, 10 mg, Oral, BID ??? pantoprazole, 40 mg, Oral, Daily before breakfast ??? piperacillin-tazobactam, 4.5 g, Intravenous, q6h ??? potassium chloride, 10 mEq, Intravenous, q1h ??? Povidone-Iodine, 1 Swab, Nasal, Daily ??? Insert peripheral IV, , , Once AND Saline lock IV, , , Once AND sodium chloride, 10 mL,Intravenous, q12h AND sodium chloride, 10 mL, Intravenous, PRN ??? sodium phosphate, 0.16 mmol/kg (Colony), Intravenous, Once ??? topiramate, 50 mg, Oral, BID ??? traZODone, 50 mg, Oral, Nightly LABS Labs in last 18 hours CBC WBC 7.35 Hb 11.9 Plt 141 (L) Hct 36.7 ANC ?? INR ??, PTT ??, Anti-Xa ?? BMP Na 135 (L) Cl 104 BUN 11 Glu 78 K 3.5 (L) Co2 17 (L) Cr 1.13 (H) Ca 8.2 (L) iCa ?? Mg 2.1, Phos 2.4 (L) Lactate ?? LFT AST 158 (H) AlkPhos 204 (H) T Prot 5.2 (L) ALK 116 (H) Bili 1.6 (H) Alb ?? D.Bili ?? EKG, ECHO, Cath, Imaging, PFTs EKG No results found for this or any previous visit (from the past 4464 hour(s)). ECHO No echocardiogram results found for the past 12 months CXR Body mass index is 26.22 kg/m??. Vitals: 05/22/22 0349 BP: 116/67 Pulse: 57 Resp: 18 Temp: 36.9 ??C (98.4 ??F) SpO2: 96% Anesthesia Evaluation Physical Exam Anesthesia Plan ASA 3 Anesthesia technique(s) discussed with the patient/family: General Anesthesia plan agreed upon was: general Post operative pain planned: discuss with surgical team Induction planned: intravenous Airway management planned: general endotracheal Premedication planned: none Anesthetic plan and risks discussed with patient. Use of blood products discussed with patient who. Plan discussed with DELIVERER MERCHANDISE. Additional Equipment Requests documented in this encounter Plan of Treatment Not on file documented as of this encounter Procedures Procedure Name Priority Date/Time Associated Diagnosis Comments ANESTHESIA PERIPHERAL IV PLACEMENT Routine 05/22/2022 12:38 PM EST PB ANESTHESIA PLACEHOLDER Routine 05/22/2022 12:08 PM EST UT AN ELECTIVE ENDOTRACHEAL AIRWAY Routine 05/22/2022 12:08 PM EST documented in this encounter Results * Peripheral IV (05/22/2022 12:38 PM EST) Narrative Masood Olson CRNA - 05/22/2022 12:38 PM EST Masood Olson CRNA ? 05/22/2022 12:39 PM Peripheral IV Date/Time: 05/22/2022 12:38 PM Placement Needle size: 18 G Location: arm Site prep: alcohol Technique: anatomical landmarks us Alejandro Cardoso DO ANESTHESIA ORDERABLES Final Res ult * UT AN ELECTIVE ENDOTRACHEAL AIRWAY, PB ANESTHESIA PLACEHOLDER (05/22/2022 12:08 PM EST) Narrative Masood Olson CRNA - 05/22/2022 12:08 PM EST Masood Olson CRNA ? 05/22/2022 12:25 PM Airway Date/Time: 05/22/2022 12:08 PM Urgency: elective Airway not difficult General Information and Staff Patient location during procedure: OR DELIVERER MERCHANDISE: Masood Olson CRNA Performed: KALPESH Indications and Patient Condition [...] Placement verified by: chest auscultation and capnometry Cuff volume (mL): 4 Measured from: teeth ETT to teeth (cm): 21 Number of attempts at approach: 1 Additional Comments Atraumatic. No change to dentition. us Alejandro Cardoso DO ANESTHESIA ORDERABLES Final Res ult documented in this encounter Visit Diagnoses Not on filedocumented in this encounter Administered Medications Inactive Administered Medications - up to 3 most recent administrations Medication Order MAR Action Action Date Dose Rate Site dexamethasone (Decadron) injection Intravenous, As needed, Starting on Wed05/22/22 at 1230, Until Wed05/22/22 at 1402, Routine, Anesthesia Intraprocedure Given 05/22/2022 12:30 PM EST 4 mg dexmedetomidine in NS (Precedex) 4 mcg/mL infusion Intravenous, As needed, Starting on Wed05/22/22 at 1250, Until Wed05/22/22 at 1402, Routine Given 05/22/2022 1:34 PM EST 8 mcg Given 05/22/2022 12:50 PM EST 8 mcg Given 05/22/2022 12:31 PM EST 8 mcg fentaNYL (Sublimaze) injection Intravenous, As needed, Starting on Wed05/22/22 at 1206, Until Wed05/22/22 at 1402, Routine, Anesthesia Intraprocedure Given 05/22/2022 1:05 PM EST 50 mcg Given 05/22/2022 12:06 PM EST 100 mcg glycopyrrolate (Robinul) injection Intravenous, As needed, Starting on Wed05/22/22 at 1219, Until Wed05/22/22 at 1402, Routine, Anesthesia Intraprocedure Given 05/22/2022 12:19 PM EST 0.2 mg HYDROmorphone PF (Dilaudid) injection Intravenous, As needed, Starting on Wed05/22/22 at 1250, Until Wed05/22/22 at 1402, Routine, Anesthesia Intraprocedure Given 05/22/2022 1:46 PM EST 0.5 mg Given 05/22/2022 1:34 PM EST 0.5 mg Given 05/22/2022 12:58 PM EST 0.5 mg lactated Ringer's infusion Intravenous, Continuous PRN, Starting on Wed05/22/22 at 1152, Until Wed05/22/22 at 1402, Routine New Bag 05/22/2022 11:52 AM EST lidocaine PF (Xylocaine) 2 % injection Intravenous, As needed, Starting on Wed05/22/22 at 1206, Until Wed05/22/22 at 1402, Routine, Anesthesia Intraprocedure Given 05/22/2022 12:06 PM EST 60 mg ondansetron (Zofran) injection Intravenous, As needed, Starting on Wed05/22/22 at 1327, Until Wed05/22/22 at 1402, Routine, Anesthesia Intraprocedure Given 05/22/2022 1:27 PM EST 4 mg piperacillin-tazobactam (Zosyn) 4.5 g in sodium chloride 0.9% 100 mL IVPB (Mini-Bag Plus) 4.5 g, Intravenous, Every 6 hours, First dose on Anuradha 05/21/22 at 0045, Until Discontinued, Routine New Bag 05/23/2022 8:46 AM EST 4.5 g New Bag 05/23/2022 1:14 AM EST 4.5 g New Bag 05/22/2022 8:23 PM EST 4.5 g propofol (Diprivan) injection Intravenous, As needed, Starting on Wed05/22/22 at 1206, Until Wed05/22/22 at 1402, Routine, Anesthesia Intraprocedure Given 05/22/2022 12:06 PM EST 140 mg rocuronium (ZeMuron) injection Intravenous, As needed, Starting on Wed05/22/22 at 1206, Until Wed05/22/22 at 1402, Routine, Anesthesia Intraprocedure Given 05/22/2022 12:38 PM EST 20 mg Given 05/22/2022 12:06 PM EST 50 mg sugammadex (Bridion) 200 MG/2ML injection Intravenous, As needed, Starting on Wed05/22/22 at 1331, Until Wed05/22/22 at 1402, Routine, Anesthesia Intraprocedure Given 05/22/2022 1:31 PM EST 200 mg documented in this encounter Additional Health Concerns Infection Onset Date Last Indicated Resolved Time MRSA Comment:MRSA (methicillin resistant Staphylococcus aureus) 04/17/2020 05/21/2022 Assessment Noted Time A fall risk assessment has been complete d for the patient 04/23/2021 1:07 PM EST documented as of this encounter Care Teams Recreational Specialist Relationship Specialty Start Date End Date Juan José Kendall MD [address] [place] [id number] PCP - General 03/12/21 documented as of this encounter
--- OUTSIDE RECORDS SUMMARY | 2024-03-11 09:26 | XMS_ITS | Encounter Summary ---
Author Organization [facility] Address [address] [place] [address] Care Team Providers Care Instructor Ground Services Name Role Phone Juan José Kendall MD Primary Care Provider [phone]- [phone] Reason for Visit * Reason Comments Wound Care Encounter Details Date Type Department Care Team ([facility] st Contact Info) Description 03/26/2021 1:30 PM EST Office Visit [facility] [address] [facility], [address] [place] [address] Daniella Larose, MILL OPERATOR [address] [place] [address] Non-healing surgical wound, subsequent encounter [...] Sign Reading Time Taken Comments Blood Pressure 99/44 03/26/2021 1:17 PM EST Pulse 79 03/26/2021 1:17 PM EST Temperature 36.5 ??C (97.7 ??F) 03/26/2021 1:17 PM ES T Respiratory Rate 20 03/26/2021 1:17 PM EST Oxygen Saturation - - Inhaled Oxygen Concentration - - Weight - - Height - - Body Mass Index - - documented in this encounter Miscellaneous Notes * Patient Instructions - Aditi Keenan RN - 03/26/2021 1:30 PM EST [facility] Physician Orders/Patient Instructions Should you notice a significant change in your wound(s) (such as increased drainage, foul odor, or pain) or have questions or problems following these instructions, please contact us at or call your primary care physician or the hospital emergency rooms. Wound Care/Dressing: Wound location: right amputation site Cleanse Wound With: Normal Saline Apply: karina Cover With: 4 x 4 Secure With: Kerlix, bordered gauze or allevyn Dressing Changes: Daily Compression Dressing Compression Dressing: Other: right Jay wrap Compression Frequency Daily Discontinue NPWT * Progress Notes - Daniella Larose APRN - 03/26/2021 1:30 PM EST Subjective Trudi Blair is a 65 y.o. 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 Current wound care regimen is NPWT, states it started Wednesday, home health is assisting with changes. PMH significant for HTN and GERD. Denies [...] Open area on right lateral AKA stump is now partial thickness with depth of 0.1 cm with exception of one small area of undermining measuring 0.8 cm. Marsing wound bed. Moderate serosanguineousdrainage with no odor. Periwound intact with no erythema, warmth, or induration. Neurological: Mental Status: She is alert and oriented to person, place, and time. Psychiatric: Behavior: Behavior normal. Procedures Assessment/Plan Assessment / Plan: Problem List Items Addressed This Visit None Visit Diagnoses Non-healing surgical wound, subsequent encounter - Primary Discontinue NPWT. Recommend Karina daily. Counseled on signs and symptoms of [...] documented as of this encounter Care Teams Instructor Ground Services Relationship Specialty Start Date End Date Juan José Kendall MD [address] [place] [id number] PCP - General 03/12/21 documented as of this encounter
--- OUTSIDE RECORDS SUMMARY | 2024-03-11 09:26 | XMS_ITS | Encounter Summary ---
Author Organization [facility] Address [address] [place] [address] Care Team Providers Care Import/Export Specialist Name Role Phone Juan José Kendall MD Primary Care Provider [phone]- [phone] Encounter Details Date Type Department Care Team ([facility] st Contact Info) Description 04/28/2021 Telephone Medical Office Building Surgery Spine [facility] Joint [address] [facility] [facility] [address] [facility], [address] [place] [address] Loly Artis, RN [facility] Social History Tobacco Use [...] Telephone Encounter - Loly Artis RN - 04/29/2021 11:35 AM EST Patient notified refill sent. * Telephone Encounter - Lesli Mccabe APRN - 04/29/2021 8:13 AM EST Refilled. Thanks! documented in this encounter Plan of [...] documented as of this encounter Care Teams Import/Export Specialist Relationship Specialty Start Date End Date Juan José Kendall MD [address] [place] [id number] PCP - General 03/12/21 documented as of this encounter
--- OUTSIDE RECORDS SUMMARY | 2024-03-11 09:27 | XMS_ITS | Encounter Summary ---
Author Organization [facility] Address [address] [place] [address] Care Team Providers Care Residential Life Director Name Role Phone Blu Birmingham MD Primary Care Provider [phone] Reason for Visit * Reason Onset Date Comments HCN - Patient Message 12/17/2020 Encounter Details Date Type Department Care Team ([facility] st Contact Info) Description 12/17/2020 Telephone Medical Office Building Surgery Spine & Joint [address] [facility], [address] [place] [address] Edi Robles MD [address] [place] [address] HCN - Patient Message Social History Tobacco Use Types Packs/Day Years Used Date Smoking Tobacco: Never Smokeless Tobacco: Never Comments Unknown Sex and Gender Information Value Date Recorded Sex Assigned at Female 05/22/2022 10:56 AM EST Legal Sex Female 5:59 PM EDT Gender Identity Female 05/22/2022 10:56 AM EST Sexual Orientation Not on file documented as of this encounter Miscellaneous Notes * Telephone Encounter - Loly Artis RN - 12/19/2020 3:04 PM EDT Appt scheduled for Wednesday. Pt aware and notified to bring any imaging she has had recently on a disc. Pt stated understanding * Telephone Encounter - Lesli Mccabe NP - 12/18/2020 1:23 PM EDT We can see her Wednesday am, ask her to bring any imaging shes had recently with her on a disc, if she hasn't had any imaging we can get xray. Thanks! * Telephone Encounter - Patrick Patel - 12/17/2020 3:44 PM EDT Patient Phone Message Reason for Call: Call from Dr. Kendall's office at [facility]. Calling to report possible osteomyelitisof R knee. Patient scheduled 01/21 but was wanting consult for possible sooner appointment. Best contact number and optimal time of day to reach caller: [phone]. Note: Please do not reply to this message. Follow-up communication and further actions as a result of this message need to be communicated with the patient directly, if the patient is not active onMyChart. If the patient is active on MyChart, they will receive notification of the communication/outcome via Wurl. documented in this encounter Plan of Treatment Not on file documented as of this encounter Visit Diagnoses Not on filedocumented in this encounter Additional Health Concerns Infection Onset Date Last Indicated Resolved Time MRSA Comment:MRSA (methicillin resistant Staphylococcus aureus) 04/17/2020 05/21/2022 Assessment Noted Time A fall risk assessment has been complete d for the patient 09/10/2020 2:45 PM EDT documented as of this encounter Care Teams Residential Life Director Relationship Specialty Start Date End Date Blu Birmingham MD [address] [place] [id number] PCP - General 08/16/20 03/11/21 documented as of this encounter
--- OUTSIDE RECORDS SUMMARY | 2024-03-11 09:27 | XMS_ITS | Encounter Summary ---
Author Organization [facility] Address [address] [place] [address] Care Team Providers Care L D Rn Name Role Phone Blu Birmingham MD Primary Care Provider [phone] Encounter Details Date Type Department Care Team (Latest Contact Info) Description 01/20/2021 Travel Social History Tobacco Use Types Packs/Day [...] have Coronavirus / COVID-19? No / Unsure 01/20/2021 10:37 AM EDT documented as of this encounter Plan of Treatment Not on file documented as of this encounter Visit Diagnoses Not on filedocumented in this encounter Additional Health Concerns Infection Onset Date Last Indicated Resolved Time MRSA Comment:MRSA (methicillin resistant Staphylococcus aureus) 04/17/2020 05/21/2022 Assessment Noted Time A fall risk assessment has been complete d for the patient 12/24/2020 11:07 AM EDT documented as of this encounter Care Teams L D Rn Relationship Specialty Start Date End Date Blu Birmingham MD [address] [place] [id number] PCP - General 08/16/20 03/11/21 documented as of this encounter"
--- OUTSIDE RECORDS SUMMARY | 2024-03-11 09:27 | XMS_ITS | Encounter Summary ---
Author Organization [facility] Address [address] [place] [address] Care Team Providers Care House Builder Name Role Phone Blu Birmingham MD Primary Care Provider [phone] Juan José Kendall MD Primary Care Provider [phone] Reason for Visit * Reason Onset Date Comments HCN - Patient Message 01/06/2021 HCN - Patient Message 01/13/2021 Encounter Details Date Type Department Care Team ([facility] st Contact Info) Description 01/06/2021 Telephone Medical Office Building Surgery Spine & Joint [address] [facility], [address] [place] [address] Edi Robles MD [address] [facility] [address] [place] [address] HCN - Patient Message; HCN - Patient Message Social History Tobacco [...] encounter Miscellaneous Notes * Telephone Encounter - Patrick Patel - 01/13/2021 12:33 PM EDT Patient Phone Message Reason for Call: Call from Shirley of [facility]. Calling to report wound has formed fluid in bubbly form and needing to know if appointment is needing to be made. Best contact number and optimal time of day to reach caller: [phone] Note: Please do not reply to this message. Follow-up communication and further actions as a result of this message need to be communicated with the patient directly, if the patient is not active onMyChart. If the patient is active on MyChart, they will receive notification of the communication/outcome via LoSo. * Telephone Encounter - Loly Artis RN - 01/06/2021 11:19 AM EDT Shirley notified and stated understanding * Telephone Encounter - Lesli Mccabe NP - 01/06/2021 10:25 AM EDT Since we didn't place or manage it, I can't give them orders to discontinue. They will need to contact whoever managed her abx or infectious disease. Thanks! * Telephone Encounter - Poonam Burkett - 01/06/2021 9:41 AM EDT Patient Phone Message Reason for Call: Shirley with [facility] calling again regarding additional questions re: pt's home health. Best contact number and optimal time of day to reach caller:[phone] Note: Please do not reply to this message. Follow-up communication and further actions as a result of this message need to be communicated with the patient directly, if the patient is not active onMyChart. If the patient is active on MyChart, they will receive notification of the communication/outcome via LoSo. * Telephone Encounter - Shay Alexis - 01/06/2021 8:12 AM EDT Patient Phone Message Reason for Call: [place] pt - Received call from Shirley with [facility] with additional questions re: pt's home health. Best contact number and optimal time of day to reach caller: [phone] Note: Please do not reply to this message. Follow-up communication and further actions as a result of this message need to be communicated with the patient directly, if the patient is not active onMyChart. If the patient is active on MyChart, they will receive notification of the communication/outcome via LoSo. documented in this encounter Plan of Treatment [...] documented as of this encounter Care Teams House Builder Relationship Specialty Start Date End Date Blu Birmingham MD [address] [place] [id number] PCP - General 08/16/20 03/11/21 Juan José Kendall MD [address] [place] [id number] PCP - General 03/12/21 documented as of this encounter
--- OUTSIDE RECORDS SUMMARY | 2024-03-11 09:27 | XMS_ITS | Encounter Summary ---
Author Organization [facility] Address [address] [place] [address] Care Team Providers Care Publicity Writer Name Role Phone Blu Birmingham MD Primary Care Provider [phone] Encounter Details Date Type Department Care Team (Latest Contact Info) Description 12/24/2020 Travel Social History Tobacco Use Types Packs/Day [...] have Coronavirus / COVID-19? No / Unsure 12/24/2020 10:45 AM EDT documented as of this encounter [...] documented as of this encounter Care Teams Publicity Writer Relationship Specialty Start Date End Date Blu Birmingham MD [address] [place] [id number] PCP - General 08/16/20 03/11/21 documented as of this encounter
--- OUTSIDE RECORDS SUMMARY | 2024-03-11 09:27 | XMS_ITS | Encounter Summary ---
Author Organization [facility] Address [address] [place] [address] Care Team Providers Care Investigator Internal Revenue Name Role Phone Blu Birmingham MD Primary Care Provider [phone] Juan José Kendall MD Primary Care Provider [phone] Reason for Visit * Reason Onset Date Comments HCN - Patient Message 02/05/2021 Encounter Details Date Type Department Care Team ([facility] st Contact Info) Description 02/05/2021 Telephone Medical Office Building Surgery Spine & Joint [address] [facility], [address] [place] [address] Edi Robles MD [address] [place] [address] HCN - Patient Message Social [...] Telephone Encounter - Loly Artis RN - 02/05/2021 2:31 PM EDT Instructed pt to apply clean dressing and reapply estefanía wrap. Patient stated understanding and will call back if further questions or concerns * Telephone Encounter - Patrick Patel - 02/05/2021 1:44 PM EDT Patient Phone Message Reason for Call: Patient of Dr. Robles. Calling to report her bandage has come off from her surgery. Best contact number and optimal time of day to reach caller: [phone] Note: Please do not reply to this message. Follow-up communication and further actions as a result of this message need to be communicated with the patient directly, if the patient is not active onMyChart. If the patient is active on MyChart, they will receive notification of the communication/outcome via Apparcando. documented in this encounter Plan of Treatment [...] documented as of this encounter Care Teams Investigator Internal Revenue Relationship Specialty Start Date End Date Blu Birmingham MD [address] [place] [id number] PCP - General 08/16/20 03/11/21 Juan José Kendall MD [address] [place] [id number] PCP - General 03/12/21 documented as of this encounter
--- OUTSIDE RECORDS SUMMARY | 2024-03-11 09:27 | XMS_ITS | Encounter Summary ---
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 She is now 8 months status post cemented arthrodesis at our institution for the right side. Left side is being managed by outside facility prior to transfer. She has been nonweightbearing. She has been wheelchair. She has completed her vanc antibiotic therapy. She went to Dr. Madison and [facility] a few weeks ago where she had her scab over her right anterior knee that was debrided in clinic and then since then she has had a chronic draining wound that saturates multiple dressing daily. Cultures from outside hospital report there was MRSA. Patient reports significant pain with any movement of her right lower extremity to the point is affecting most of her daily function. She is interestedin amputation of this leg.. Denies any purulent drainage from her the wound. She does have baselineparesthesias over her right toes and dorsum foot. No other complaints Physical Exam Gen - A/O to person, place, and recent events, NAD HEENT: NCAT, eyes tracking appropriately Neck: supple, trachea midline Heart - regular rate by palpation, peripheral perfusion intact Lungs - bilateral chest elevations, non-labored breathing on room air Appearance: 2cm circular draining wound over distal incision with serosanguinous output otherwise surgical site well-healed with no erythema, fluctuance, or drainage, no tenderness to palpation?? Strength: 5/5 EHL, FHL, TA, GSC Sensation: chronic paresthesias over toes and SP otherwise SILT in deep peroneal, tibial, saphenous, and sural nerve distributions Vascular: Toes WWP, Cap refill <2 sec ?? Imaging: Imaging obtained today was personally reviewed and interpreted by myself and Dr. Robles. Three views right knee demonstrates no evidence of hardware loosening or failure. No evidence of acute bony abnormality. ?? 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 ?? Given patient's septic knee joint as well as recent hospitalization requiring IV antibiotics and her chronic draining wound and her pain being so severe that it is affecting her lifestyle and daily activities we had an extensive conversation about non operative and operative interventions. Decisionmade by patient and operating team to proceed with the right the above knee amputation in order and optimize patient's quality life and strive for infection control. Informed consent was obtained. COVID test ordered. Will plan for surgical intervention when operative time available. ?? Dr Robles was present for this visit, reviewed images and agrees w/ plan. Respectfully yours, Yousif Amaral MD Dept. of Orthopaedic Surgery and Sports Medicine, Resident Physician Pager: [phone] Cosigned by Edi Robles MD at 12/24/2020 3:11 PM EDT Associated attestation - Edi Robles MD - 12/24/2020 3:11 PM EDT I saw and evaluated the patient with the resident/fellow. I discussed the case with the resident/fellow and agree with the findings and plan as documented. documented in this encounter Plan of Treatment Not on file documented as of this encounter Visit Diagnoses Diagnosis Staphylococcal arthritis of right knee (CMS/HCC)- Primary documented in this encounter Additional Health Concerns Infection Onset Date Last Indicated Resolved Time MRSA Comment:MRSA (methicillin resistant Staphylococcus aureus) 04/17/2020 05/21/2022 Assessment Noted Time A fall risk assessment has been complete d for the patient 12/24/2020 11:07 AM EDT documented as of this encounter Care Teams Spray Maker Relationship Specialty Start Date End Date Blu Birmingham MD [address] [place] [id number] PCP - General 08/16/20 03/11/21 documented as of this encounter
--- OUTSIDE RECORDS SUMMARY | 2024-03-11 09:27 | XMS_ITS | Encounter Summary ---
Author Organization [facility] Address [address] [place] [address] Care Team Providers Care Flame Cutting Supervisor Name Role Phone Blu Birmingham MD Primary Care Provider [phone] Encounter Details Date Type Department Care Team (Latest Contact Info) Description 09/10/2020 2:04 PM EDT - 09/10/2020 11:59 PM EDT Hospital Encounter Medical Office Building Radiology [address] [place] [address] Chronic pain of right knee Discharge Disposition: Home or Self Care Social [...] have Coronavirus / COVID-19? No / Unsure 09/10/2020 1:44 PM EDT documented as of this encounter Medications at Time of Discharge atorvastatin (Lipitor) 20 MG tablet Take 20 mg by mouth every night. 11/18/2019 midodrine (Proamatine) 10 MG tablet Take 10 mg by mouth 2 (two) times a day. 11/13/2019 morphine CR (MS Contin) 15 MG 12 hr tablet Take 30 mg by mouth 2 (two) times a day. 2 tablets twice daily 01/09/2020 pantoprazole (ProtoNix) 40 MG EC tablet Take 40 mg by mouth 1 (one) time each day before breakfast. 11/18/2019 topiramate 50 MG tablet Take 50 mg by mouth 2 (two) times a day. 07/19/2018 traZODone (Desyrel) 50 MG tablet Take 50 mg by mouth every night. 11/18/2019 metoclopramide (Reglan) 10 MG tablet Take 10 mg by mouth 2 (two) times a day. 05/22/2018 05/22/2022 metoprolol tartrate (Lopressor) 50 MG tablet Take 50 mg by mouth 1 (one) time each day. 08/04/2018 01/22/2021 omeprazole (PriLOSEC) [address] capsule 07/19/2018 12/24/2020 ondansetron (Zofran) 4 MG tablet 11/08/2019 12/24/2020 potassium chloride ER (Micro-K) 10 MEQ ER capsule Take 10 mEq by mouth 2 (two) times a day. 01/11/2020 05/22/2022 simvastatin (Zocor) 40 MG tablet 07/19/2018 12/24/2020 documented as of this encounter Plan of Treatment Not on file documented as of this encounter Procedures Procedure Name Priority Date/Time Associated Diagnosis Comments XR KNEE RIGHT 1 OR 2 VIEWS Routine 09/10/2020 2:25 PM EDT Chronic pain of right knee documented in this encounter Results * XR Knee Right 1 or 2 Views (09/10/2020 2:25 PM EDT) Anatomical Region Laterality Modality Lower Extremities, Knee Right Digital Radiography Impressions 09/10/2020 3:14 PM EDT Similar appearance to prior, as detailed above, with skin mihaela removed in the interim. No evidence of hardware complication. CRITICAL RESULT: ?? No. COMMUNICATION: Per this written report. Signed by Fay Moreno on ??09/10/2020 3:14 PM Narrative 09/10/2020 3:14 PM EDT Exam/Procedure: XR KNEE RIGHT 1 OR 2 VIEWS ordered by VINNIE HURLEY, [id number] CLINICAL INDICATION: 65 years-old Female for pain. TECHNIQUE: XR KNEE RIGHT 1 OR 2 VIEWS COMPARISON: 06/04/2020 FINDINGS: Redemonstrated nail spanning the femorotibial joint with surrounding cement at the joint. No evidence of hardware failure or loosening. Unchanged hardware and osseous alignment. Previously seen skin mihaela have been removed. Unchanged patella roseanne. Procedure Note Fay Moreno MD - 09/10/2020 Exam/Procedure: XR KNEE RIGHT 1 OR 2 VIEWS ordered by VINNIE HURLEY,[id number] CLINICAL INDICATION: 65 years-old Female for pain. TECHNIQUE: XR KNEE RIGHT 1 OR 2 VIEWS COMPARISON: 06/04/2020 FINDINGS: Redemonstrated nail spanning the femorotibial joint with surroundingcement at the joint. No evidence of hardware failure or loosening.Unchanged hardware and osseous alignment. Previously seen skin stapleshave been removed. Unchanged patella roseanne. IMPRESSION: Similar appearance to prior, as detailed above, with skin mihaela removedin the interim. No evidence of hardware complication. CRITICAL RESULT: No. COMMUNICATION: Per this written report. Signed by Fay Moreno on 09/10/2020 3:14 PM us Vinnie Hurley MD IMG XR PROCEDURES Final Resul t documented in this encounter Visit Diagnoses Diagnosis Chronic pain of right knee documented in this encounter Additional Health Concerns Infection Onset Date Last Indicated Resolved Time MRSA Comment:MRSA (methicillin resistant Staphylococcus aureus) 04/17/2020 05/21/2022 Assessment Noted Time A fall risk assessment has been complete d for the patient 09/10/2020 2:45 PM EDT documented as of this encounter Care Teams Flame Cutting Supervisor Relationship Specialty Start Date End Date Blu Birmingham MD [address] [place] [id number] PCP - General 08/16/20 03/11/21 documented as of this encounter
--- OUTSIDE RECORDS SUMMARY | 2024-03-11 09:27 | XMS_ITS | Encounter Summary ---
Author Organization [facility] Address [address] [place] [id number] Care Team Providers Care Costume Design Teacher Name Role Phone Blu Birmingham MD Primary Care Provider [phone] Juan José Kendall MD Primary Care Provider [phone] Reason for Visit * Reason Onset Date Comments HCN - Patient Message 01/27/2021 Encounter Details Date Type Department Care Team ([facility] st Contact Info) Description 01/27/2021 Telephone Medical Office Building Surgery Spine & Joint [address] [facility], [address] [place] [address] Edi Robles MD [address] [place] [address] HCN - Patient Message Social [...] encounter Miscellaneous Notes * Telephone Encounter - Muna Mccullough - 01/27/2021 9:35 AM EDT Faxed order * Telephone Encounter - Patrick Patel - 01/27/2021 9:20 AM EDT Patient Phone Message Reason for Call: Call from Yvonne of [employer] [facility]. Patient of . Calling to report they have not received PT and OT orders for patient. Fax number: [phone] Best contact number and optimal time of day to reach caller: [phone] Note: Please do not reply to this message. Follow-up communication and further actions as a result of this message need to be communicated with the patient directly, if the patient is not active onMyChart. If the patient is active on MyChart, they will receive notification of the communication/outcome via eTapestryhart. documented in this encounter Plan of Treatment [...] documented as of this encounter Care Teams Costume Design Teacher Relationship Specialty Start Date End Date Blu Birmingham MD [address] [place] [id number] PCP - General 08/16/20 03/11/21 Juan José Kendall MD [address] [place] [id number] PCP - General 03/12/21 documented as of this encounter
--- OUTSIDE RECORDS SUMMARY | 2024-03-11 09:27 | XMS_ITS | Encounter Summary ---
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) [M00.061] Procedures ME AMPUTATE THIGH,THRU FEMUR ABOVE KNEE RIGHT AMPUTATION, LOWER EXTREMITY Edi Robles MD [address] [address] Phone: tel: fax: [facility] S Operating [address] [place] [address] Phone: tel: Referral ID Status Reason Start Date Expiration Date Visits Re quested Visits Authorized [id number] 1 1 Encounter Details Date Type Department Care Team ([facility] st Contact Info) Description 02/11/2021 9:40 AM EST Office Visit Medical Office Building Surgery Spine & Joint [address] , [address] [place] [address] Edi Robles MD [address] [place] [address] History of bilateral knee replacement (Primary Dx) Social History Tobacco Use [...] have Coronavirus / COVID-19? No / Unsure 02/11/2021 9:24 AM EST documented as of this encounter Last Filed Vital Signs Vital Sign Reading Time Taken Comments Blood Pressure 122/77 02/11/2021 9:27 AM EST Pulse 71 02/11/2021 9:27 AM EST Temperature - - Respiratory Rate - - Oxygen Saturation - - Inhaled Oxygen Concentration - - Weight - - Height - - Body Mass Index - - documented in this encounter Miscellaneous Notes * Progress Notes - Yousif Amaral MD - 02/11/2021 9:40 AM EST ORTHOPEDIC FOLLOWUP NOTE Surgery: Right AKA (01/22/21) Interval History: Trudi Blair is a 65 y.o. female patient status post right above knee amputation 01/22/2021 now almost 3 weeks postop. Overall patient doing okay. Having pain and phantom limb pain. Taking norco, tramadol, and gabapentin 200mg. Does not feel pain medications helping significantly. Home therapy has been seeing patient. Exam: RLE Inspection - incision with stables in place; 3cm area of mild necrosis near skin edges over medial aspect of wound, no dehiscence, no significant erythema. No drainage. Motor - HF intact Sensory - sensation over residual limb intact Vascular - cap refill <2sec No new imaging Assessment and plan: 65 y.o. female patient status post right above knee amputation 01/22/2021 now almost 3 weeks postop. Patient having some pain control and phantom limb pain with smaller area of necrosis over medial wound, otherwise doing okay. Anticipate wound to continue healing give area of necrosis is small withlarger adjacent areas of viable tissue and possibly related to constrictive dressing. Continue PT, wound care Will remove mihaela over the lateral aspect of sutures and will leave the medial mihaela over the tenuous medial skin in place for now Follow up in 3 weeks for clinical check Gabapentin 100 mg TID prescribed and discussed appropriate use Respectfully yoursYousif MD Dept. of Orthopaedic Surgery and Sports Medicine, Resident Physician Pager: [phone] Cosigned by Edi Robles MD at 02/11/2021 12:14 PM EST Associated attestation - Edi Robles MD - 02/11/2021 12:14 PM EST I saw and evaluated the patient with the resident/fellow. I discussed the case with the resident/fellow and agree with the findings and plan as documented. documented in this encounter Plan of Treatment Not on file documented as of this encounter Visit Diagnoses Diagnosis History of bilateral knee replacement- Primary documented in this encounter Additional Health Concerns Infection Onset Date Last Indicated Resolved Time MRSA Comment:MRSA (methicillin resistant Staphylococcus aureus) 04/17/2020 05/21/2022 Assessment Noted Time A fall risk assessment has been complete d for the patient 02/11/2021 9:27 AM EST documented as of this encounter Care Teams Sql Tech Relationship Specialty Start Date End Date Blu Birmingham MD [address] [place] [id number] PCP - General 08/16/20 03/11/21 documented as of this encounter
--- OUTSIDE RECORDS SUMMARY | 2024-03-11 09:27 | XMS_ITS | Encounter Summary ---
Author Organization [facility] Address [address] [place] [address] Care Team Providers Care Personal Vehicle Advisor Name Role Phone Blu Birmingham MD Primary Care Provider [phone] Juan José Kendall MD Primary Care Provider [phone] Reason for Visit * Reason Comments Wound Check Encounter Details Date Type Department Care Team ([facility] st Contact Info) Description 02/25/2021 2:40 PM EST Office Visit Medical Office Building [facility] [address], [address] [place] [address] Edi Robles MD [address] [place] [address] Joint infection (CMS/HCC) (Primary Dx) Social History Tobacco Use [...] Sign Reading Time Taken Comments Blood Pressure 97/64 02/25/2021 2:30 PM EST Pulse 83 02/25/2021 2:30 PM EST Temperature - - Respiratory Rate - - Oxygen Saturation - - Inhaled Oxygen Concentration - - Weight 58.5 kg (129 lb) 02/25/2021 2:30 PM EST Height 167.6 cm (5' 6 ) 02/25/2021 2:30 PM EST Body Mass Index 20.82 02/25/2021 2:30 PM EST documented in this encounter Miscellaneous Notes * Progress Notes - Edi Robles MD - 02/25/2021 2:40 PM EST Patient returns clinic for follow-up of 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 since last being seen she has had the development of an eschar over the medial aspect of her wound with increased drainage there is some surrounding erythema on evaluation the eschar is adhered to the skin on the medial and posterior aspects but has dehisced from the anterior aspect disc skin mihaela are currently nonfunctional we will remove her mihaela today start her on wet to dry dressings and I have placed a consult to Wound Care I given the patient's known past history of difficulty healing wounds she has asked that we increase her Neurontin to 300 three times a day asshe continues to have phantom limb since symptoms and pain postoperatively I have placed her on a 10 day course of clindamycin we will see her back in 4-6 weeks for repeat evaluation ADDENDUM 06/23/21: Mrs Blair is 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 She willrequire a left transtibial prosthesis and supplies to restore previous quality of life and protect his sound side limb from increase impact overt he course of her life. documented in this encounter Plan of Treatment Not on file documented as of this encounter Visit Diagnoses Diagnosis Joint infection (CMS/[facility])- Primary Unspecified infective arthritis, multiple sites documented in this encounter Additional Health Concerns Infection Onset Date Last Indicated Resolved Time MRSA Comment:MRSA (methicillin resistant Staphylococcus aureus) 04/17/2020 05/21/2022 Assessment Noted Time A fall risk assessment has been complete d for the patient 02/25/2021 2:34 PM EST documented as of this encounter Care Teams Personal Vehicle Advisor Relationship Specialty Start Date End Date Blu Birmingham MD [address] [place] [id number] PCP - General 08/16/20 03/11/21 Juan José Kendall MD [address] [place] [id number] PCP - General 03/12/21 documented as of this encounter
--- OUTSIDE RECORDS SUMMARY | 2024-03-11 09:27 | XMS_ITS | Encounter Summary ---
Author Organization [facility] Address [address] [place] [address] Care Team Providers Care Assembler Corncob Pipes Name Role Phone Blu Birmingham MD Primary Care Provider [phone] Encounter Details Date Type Department Care Team (Latest Contact Info) Description 12/16/2020 - 12/16/2020 11:59 PM EDT Hospital Encounter Image Record Center [address] [place] [phone] Examination Discharge Disposition: Home or Self Care [...] PM EST documented as of this encounter Medications [...] Name Priority Date/Time Associated Diagnosis Comments CT KNEE RIGHT W AND WO IV CONTRAST Routine 12/16/2020 12:00 AM EDT Examination documented in this encounter Results * CT Knee Right w and wo IV Contrast (12/16/2020 12:00 AM EDT) Narrative IMAGING - 05/20/2022 11:10 PM EST This study was performed at an outside facility and has been loaded into the PACS system for reference only. ??This order has been auto-finalized and does not contain a result. us Imaging [...] documented as of this encounter Care Teams Assembler Corncob Pipes Relationship Specialty Start Date End Date Blu Birmingham MD [address] [place] [id number] PCP - General 08/16/20 03/11/21 documented as of this encounter
--- OUTSIDE RECORDS SUMMARY | 2024-03-11 09:27 | XMS_ITS | Encounter Summary ---
Author Organization [facility] Address [address] [place] [address] Care Team Providers Care Tool Mechanic Name Role Phone Blu Birmingham MD Primary Care Provider Encounter Details Date Type Department Care Team (Latest Contact Info) Description 09/10/2020 Travel Social History Tobacco Use Types Packs/Day [...] PM EDT documented as of this encounter Plan [...] documented as of this encounter Care Teams Tool Mechanic Relationship Specialty Start Date End Date Blu Birmingham MD [address] [place] [id number] PCP - General 08/16/20 03/11/21 documented as of this encounter
--- OUTSIDE RECORDS SUMMARY | 2024-03-11 09:27 | XMS_ITS | Encounter Summary ---
Author Organization [facility] Address [address] [place] [address] Care Team Providers Care Card Mounter Name Role Phone Blu Birmingham MD Primary Care Provider [phone] Encounter Details Date Type Department Care Team (Latest Contact Info) Description 12/06/2020 - 12/06/2020 11:59 PM EDT Hospital Encounter Image Record Center [address] [place] [phone] Examination Discharge Disposition: Home or Self Care [...] Date/Time Associated Diagnosis Comments XR KNEE RIGHT 4+ VIEWS Routine 12/06/2020 12:00 AM EDT Examination documented in this encounter Results * XR Knee Right 4+ Views (12/06/2020 12:00 AM EDT) Narrative IMAGING - 05/20/2022 11:10 PM EST This study was performed at an outside facility and has been loaded into the PACS system for reference only. ??This order has been auto-finalized and does not contain a result. us Imaging Upload Radiant IMG XR PROCEDURES Final R esult IMAGING documented in this encounter Visit Diagnoses Diagnosis Examination Unspecified examination documented in this encounter Additional Health Concerns Infection Onset Date Last Indicated Resolved Time MRSA Comment:MRSA (methicillin resistant Staphylococcus aureus) 04/17/2020 05/21/2022 Assessment Noted Time A fall risk assessment has been complete d for the patient 09/10/2020 2:45 PM EDT documented as of this encounter Care Teams Card Mounter Relationship Specialty Start Date End Date Blu Birmingham MD [address] [place] [id number] PCP - General 08/16/20 03/11/21 documented as of this encounter
--- OUTSIDE RECORDS SUMMARY | 2024-03-11 09:27 | XMS_ITS | Encounter Summary ---
Author Organization [facility] Address [address] [place] [address] Care Team Providers Care Knitting Machine Tender Name Role Phone Blu Birmingham MD Primary Care Provider [phone] Juan José Kendall MD Primary Care Provider [phone] Reason for Visit * Reason Onset Date Comments HCN - Patient Message 02/11/2021 Encounter Details Date Type Department Care Team ([facility] st Contact Info) Description 02/11/2021 Telephone Medical Office Building Surgery [facility] [address] [facility] [address], [address] [place] [address] Edi Robles MD [address] [place] [address] HCN - Patient Message Social [...] Miscellaneous Notes * Telephone Encounter - Chiquis Pringle RN - 02/11/2021 3:11 PM EST Called pharmacy * Telephone Encounter - Lesli Mccabe APRN - 02/11/2021 2:42 PM EST Sorry the dose is 100mg tid * Telephone Encounter - Lesli Mccabe APRN - 02/11/2021 2:37 PM EST Dose should be 300 tid (so 90 pills), im not sure why she was on a 200mg dose as we start at 100 then increase to 300 all tid dosing. Sorry not sure why it was sent this way or why she was on a 200mgdose. Thanks! * Telephone Encounter - Shay Alexis - 02/11/2021 10:13 AM EST Patient Phone Message Reason for Call: Dr. Robles pt // Received call from Tabby arana/ [facility] requesting a call back to clarify dosage/quantity discrepancy in gabapentin rx. Best contact number and optimal time of day to reach caller: [phone] Note: Please do not reply to this message. Follow-up communication and further actions as a result of this message need to be communicated with the patient directly, if the patient is not active onMyChart. If the patient is active on MyChart, they will receive notification of the communication/outcome via [employer]. documented in this encounter Plan of Treatment [...] documented as of this encounter Care Teams Knitting Machine Tender Relationship Specialty Start Date End Date Blu Birmingham MD [address] [place] [id number] PCP - General 08/16/20 03/11/21 Juan José Kendall MD [address] [place] [id number] PCP - General 03/12/21 documented as of this encounter
--- OUTSIDE RECORDS SUMMARY | 2024-03-11 09:27 | XMS_ITS | Encounter Summary ---
Author Organization [facility] Address [address] [place] [address] Care Team Providers Care Lab Tech Name Role Phone Blu Birmingham MD Primary Care Provider [phone] Encounter Details Date Type Department Care Team (Latest Contact Info) Description 01/22/2021 Travel Social History Tobacco Use Types Packs/Day [...] have Coronavirus / COVID-19? No / Unsure 01/22/2021 7:45 AM EDT documented as of this encounter [...] documented as of this encounter Care Teams Lab Tech Relationship Specialty Start Date End Date Blu Birmingham MD [address] [place] [id number] PCP - General 08/16/20 03/11/21 documented as of this encounter
--- OUTSIDE RECORDS SUMMARY | 2024-03-11 09:27 | XMS_ITS | Encounter Summary ---
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) [M00.061] Procedures [place] AMPUTATE THIGH,THRU FEMUR ABOVE KNEE RIGHT AMPUTATION, LOWER EXTREMITY Edi Arango MD [address] [place] [id number] Phone: tel: fax: [facility] Operating [facility] [address] [place] [address] Phone: tel: Referral ID Status Reason Start Date Expiration Date Visits Re quested Visits Authorized [id number] 1 1 Encounter Details Date Type Department Care Team (Latest Contact Info) Description 01/22/2021 7:50 AM EDT - 01/24/2021 2:09 PM EDT Hospital Encounter [facility] [address] [place] [address] Edi Arango MD [address] [place] [phone] 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, sequela (Primary Dx); Staphylococcal arthritis of right knee (CMS/HCC) Discharge Disposition: Home or Self Care Social [...] Sign Reading Time Taken Comments Blood Pressure 99/61 01/24/2021 11:28 AM EDT Pulse 87 01/24/2021 11:28 AM EDT Temperature 36.6 ??C (97.8 ??F) 01/24/2021 1 1:28 AM EDT Respiratory Rate 16 01/23/2021 7:49 PM EDT Oxygen Saturation 95% 01/24/2021 11: 28 AM EDT Inhaled Oxygen Concentration - - Weight 58.5 kg (128 lb 15.5 oz) 01/23/2021 7:49 PM EDT Height 167.6 cm (5' 5.98 ) 01/23/2021 7:49 PM ED T Body Mass Index 20.83 01/23/2021 7:49 PM EDT documented in this encounter Discharge Instructions * Discharge Instructions* Jessica Milan APRN - 01/24/2021 9:47 AM EDT 1. You will be on Aspirin 81mg twice daily for 4 weeks for deep vein thrombosis prevention. It is important that you take each pill on time every day and to take it for the full 4 weeks. 2. Please see your discharge medication list for the post-operative medications you have been given. Call the clinic with any questions or concerns. 3. You have been given Docusate Sodium to take daily to prevent constipation while taking narcotic pain medications. Take this as long as you are taking narcotics. You can also begin Miralax daily and continue until you have weaned off your narcotic pain medications. If you have had no bowel movement on post-op day #3 you need to take Milk of Magnesia as directed over the counter. Then if no bowel movement by post-op day #5 you need to use a Dulcolax Suppository over the counter as directed. Ifstill no bowel movement at that time your need to call the clinic. * Attachments The following attachments cannot be sent through Care Everywhere. * After Amputation, Taking Care of Your Limb ([place]) * Amputation Surgery, Lower Body Strengthening After ([place]) * Amputation Surgery, Managing Pain After ([place]) * Amputation Surgery, Upper Body Strengthening After Lower Limb ([place]) * Stump Wrapping, Below the Knee, Discharge Instructions ([place]) * Medicine, Taking Safely: Discharge Instructions ([place]) documented in this encounter Medications at Time [...] 50 mg by mouth every night. 11/18/2019 docusate sodium (Colace) 250 MG capsule Take 1 capsule (250 mg total) by mouth 2 (two) times a day. 60 capsule 01/24/2021 1 oxyCODONE (Roxicodone) 5 MG immediate release tablet Take 1 tablet (5 mg total) by mouth every 6 (six) hours if needed for severe pain for up to 3 days. 50 tablet 01/24/2021 1 acetaminophen (Tylenol Extra Strength) 500 MG tablet Take 2 tablets (1,000 mg total) by mouth 3 (three) times a day. 100 tablet 01/24/2021 3 aspirin 81 MG EC tablet Take 1 tablet (81 mg total) by mouth 2 (two) times a day. For 4 weeks post-op for blood clot prevention 56 tablet 01/24/2021 3 gabapentin (Neurontin) 100 MG capsule Take 2 capsules (200 mg total) by mouth every 8 (eight) hours. 180 capsule 01/24/2021 1 hyoscyamine (Anaspaz,Levsin) 0.125 MG tablet Take 0.125 mg by mouth 2 (two) times a day. 3 metoclopramide (Reglan) 10 MG tablet Take 10 mg by mouth 2 (two) times a day. 05/22/2018 3 polyethylene glycol (Miralax) 17 g packet Take 17 g by mouth 1 (one) time each day. 1 potassium chloride ER (Micro-K) 10 MEQ ER [...] 01/24/2021 3 documented as of this encounter Miscellaneous Notes * Progress Notes - Yvonne Ochoa RN - 01/24/2021 1:57 PM EDT Case Management Discharge Note Trudi Blair 65 y.o. female CSN: [id number] Discussed this patient this am with the Ortho team. Patient is S/P Left AKA on 01/23/[address] Arango. Patient will be discharged home later today to her [facility]. She resides there with her and he can provide PRN assist and transport after discharge. Patient is current with [facility]# .Today I have sent them updated orders to add PT/OT. Patient has theneeded DME in the home and she was provided with a prescription for wheelchair cushion which they will obtain through local DME provider in [place] [address]. Availability of Care Givers (#Hours): 24 hours Patient's Choice of Community Agency(s): [facility]. Patient/Family Anticipated Services at Transition: home health care Equipment Needed After Discharge: wheelchair, manual Follow-up: To see Dr. Arango on 02/11/2021 at 0940 at [facility] Transportation Anticipated: family or friend will provide * Nursing Note - Bethany Crump RN - 01/24/2021 10:45 AM EDT The pt was taught discharge instructions at this time. * Discharge Summary - Jessica Milan APRN - 01/24/2021 10:00 AM EDT Hospitalization Admit Date/Time: 01/22/2021 7:50 AM Admitting Attending: Edi Arango Discharge Date: 01/24/2021 Discharge Attending Physician: Edi Arango Md PCP name and Address: Blu Birmingham MD [address] [place] [address] Referring provider name and address: No referring provider defined for this encounter. Chief Concern, Brief History of Present Illness, and Hospital Course Patient arrived to [facility] on 01/22/21 for their scheduled surgery. Patient tolerated the procedure without complication, was extubated in the operating room, and transferred to the PACU for recovery from anesthesia. Shortly thereafter, patient was transferred to the acute care floor for recovery. Patient's hospital course was without complications. Patient was given prophylactic antibiotics, pain was controlled on oral pain medications, and patient tolerated a regular diet. Thepatient was kept on DVT prophylaxis with SCD's and aspirin. The patient was cleared to be discharged by PT/OT prior to discharge. The patient was discharged home. Surgeries and Procedures Amputation, Lower Extremity (Right) Medication List .. acetaminophen 500 MG tablet Commonly known as: Tylenol Extra Strength Take 2 tablets (1,000 mg total) by mouth 3 (three) times a day. aspirin 81 MG EC tablet Take 1 tablet (81 mg total) by mouth 2 (two) times a day. For 4 weeks post-op for blood clot prevention atorvastatin 20 MG tablet Commonly known as: Lipitor Take 20 mg by mouth every night. docusate sodium 250 MG capsule Commonly known as: Colace Take 1 capsule (250 mg total) by mouth 2 (two) times a day. gabapentin 100 MG capsule Commonly known as: Neurontin Take 2 capsules (200 mg total) by mouth every 8 (eight) hours. hyoscyamine 0.125 MG tablet Commonly known as: Anaspaz,Levsin Take 0.125 mg by mouth 2 (two) times a day. metoclopramide 10 MG tablet Commonly known as: Reglan Take 10 mg by mouth 2 (two) times a day. midodrine 10 MG tablet Commonly known as: Proamatine Take 10 mg by mouth 2 (two) times a day. morphine CR 15 MG 12 hr tablet Commonly known as: MS Contin Take 30 mg by mouth 2 (two) times a day. 2 tablets twice daily pantoprazole 40 MG EC tablet Commonly known as: ProtoNix Take 40 mg by mouth 1 (one) time each day before breakfast. polyethylene glycol 17 g packet Commonly known as: Miralax Take 17 g by mouth 1 (one) time each day. potassium chloride ER 10 MEQ ER capsule Commonly known as: Micro-K Take 10 mEq by mouth 2 (two) times a day. promethazine 25 MG tablet Commonly known as: Phenergan Take 25 mg by mouth every 6 (six) hours if needed for nausea or vomiting. topiramate 50 MG tablet Take 50 mg by mouth 2 (two) times a day. traMADol 50 MG tablet Commonly known as: Ultram Take 1 tablet (50 mg total) by mouth every 4 (four) hours if needed for severe pain. traZODone 50 MG tablet Commonly known as: Desyrel Take 50 mg by mouth every night. Where to Get Your Medications These medications were sent to [facility] [place] [id number] ?? acetaminophen 500 MG tablet ?? aspirin 81 MG EC tablet ?? docusate sodium 250 MG capsule ?? gabapentin 100 MG capsule ?? 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, sequela * (Principal) Staphylococcal arthritis of right knee (CMS/HCC) Overview Signed 12/24/2020 11:38 AM by Yousif Amaral MD Added automatically from request for surgery [id number] Post Discharge Instructions See post-op instruction sheet Outpatient Follow-Up Future Appointments Date Time Provider Department Center 02/11/2021 9:40 AM Edi Arango MD [facility] Test Results Pending At Discharge Pending Labs Order Current Status Surgical Pathology Exam In process Prepare Leukocyte Reduced RBC: 2 Units Preliminary result Pertinent Physical Exam At Time of Discharge Physical Exam Musculoskeletal: Comments: Jay wrap in place and CDI Discharge Disposition/Condition Disposition: Home Condition: Stable (s/sx potential problems absent or manageable) I spent >30 minutes of patient care and instruction time in preparation for this discharge. Cosigned by Edi Arango MD at 01/27/2021 7:12 AM EDT * Progress Notes - Jose R Meeks MD - 01/24/2021 7:24 AM EDT Orthopaedic Surgery Progress Note SUBJECTIVE: No acute events overnight. Doing well, pain controlled overnight. Did well with PT yesterday, got HWA recs and wants to go home today. H/H with appropriate response post-transfusion. Tolerating diet,urinating without issue. No BM yet but having flatus, patient reports she typically has BM every 2-3 days. No nausea, vomiting, fevers or chills. OBJECTIVE: Vitals: 01/24/21 0228 BP: 96/61 Pulse: 71 Resp: Temp: 36.8 ??C (98.2 ??F) SpO2: 98% Right residual limb Dressings clean, dry, and intact No phantom limb pain cap refill <2sec, toes wwp ASSESSMENT/PLAN: Trudi Blair is a 65 y.o. female with s/p R AKA WB Status: NWB RLE DVT PPX per protocol (ASA) Pain control Nutritional optimization Bowel regimen PT/OT recommendations: HWA Follow up: 02/[address] Arango Disposition: likely discharge today, will work with PT/OT again before discharge Jose R Meeks Dept[facility] of Orthopaedic Surgery and Sports Medicine Orthopedic Reconstructiion ([facility]) Service Pager: [phone] Orthopedic Trauma ([facility]) Service Pager: [phone] Cosigned by Edi Arango MD at 01/27/2021 7:12 AM EDT * Progress Notes - Guille Bazan MD - 01/23/2021 6:04 PM EDT Subjective History Of Present Illness Trudi Blair is a 65 y.o. female with failed non operative management of infected right knee / septic arthritis. She underwent AKA today. She is seen in the PACU. She has had significant pain post op . She has received fentanyl, dilaudid and oxycodone. She still had signigicant pain and received 2mg of Versed in the PACU. . Past Medical History She has a past medical history of Anxiety, Cancer (CMS/HCC), Chronic pain disorder, Delayed emergence from general anesthesia, Diverticulosis, GERD (gastroesophageal reflux disease), Hiatal hernia, History of transfusion, Hypercholesteremia, Hypertension, Joint pain, and Osteoarthritis. ?? Surgical History She has a past surgical history that includes Back surgery (N/A); Hysterectomy (N/A); Foot surgery (Bilateral); Knee surgery (Bilateral); Knee Arthroplasty (Bilateral); Dilation and curettage of uterus; and Spinal fusion. Review of Systems Constitutional: Negative for chills, diaphoresis and fever. HENT: Negative for sore throat and trouble swallowing. Eyes: Negative for photophobia and visual disturbance. Respiratory: Negative for cough and shortness of breath. Cardiovascular: Negative for chest pain and palpitations. Gastrointestinal: Negative for abdominal pain, constipation and diarrhea. Genitourinary: Negative for dysuria and frequency. Musculoskeletal: Negative for arthralgias and back pain. Skin: Negative for rash and wound. Neurological: Negative for dizziness and headaches. Psychiatric/Behavioral: Negative for agitation and confusion. Objective Physical Exam Constitutional: General: She is not in acute distress. Appearance: She is well-developed. She is not diaphoretic. HENT: Head: Normocephalic and atraumatic. Nose: Nose normal. Mouth/Throat: Comments: Normal oral and pharyngeal mucosa Eyes: Pupils: Pupils are equal, round, and reactive to light. Cardiovascular: Rate and Rhythm: Normal rate and regular rhythm. Heart sounds: Normal heart sounds. Pulmonary: Effort: Pulmonary effort is normal. Breath sounds: Normal breath sounds. Abdominal: General: Bowel sounds are normal. Palpations: Abdomen is soft. Tenderness: There is no abdominal tenderness. Musculoskeletal: Cervical back: Normal range of motion and neck supple. Skin: General: Skin is warm and dry. Neurological: Mental Status: She is alert. Last Recorded Vitals Blood pressure 123/75, pulse 78, temperature 36.5 ??C (97.7 ??F), resp. rate 16, height 1.676 m (5'5.98 ), weight 58.5 kg (128 lb 15.5 oz), SpO2 99 %. 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 S/P right AKA Continue physical therapy per Orthopedics. DVT prophylaxis per Orthopedics recommendations. ?? HTN by history but currently she татьяна been on midodrine for relative hypotension as an outpatient. Follow BP will likely need to continue midodrine ?? HLD: Continue statin therapy ?? Chronic pain. Has been on MS Contin 15mg BID as an outpatient. Pain mgmt per orthopedics for now. ? * Progress Notes - Kary Harrison, PT - 01/23/2021 1:40 PM EDT Physical Therapy Physical Therapy Evaluation/Discharge Patient Name: Trudi Blair Today's Date: 01/23/2021 Subjective Subjective: Patient agreeable to mobility. She states she is in a lot of pain, RN reports it is nottime for meds yet and will bring when due. Patient Active Problem List Diagnosis ??? Staphylococcal arthritis of right knee (CMS/HCC) ??? Gastroesophageal reflux disease ??? Hiatal hernia ??? Primary hypertension ??? Staphylococcal arthritis, right knee (CMS/HCC) ??? 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 Anxiety ??? Cancer (CMS/HCC) cervical ??? Chronic pain disorder ??? Delayed emergence from general anesthesia ??? Diverticulosis ??? GERD (gastroesophageal reflux disease) ??? Hiatal hernia ??? History of transfusion ??? Hypercholesteremia ??? Hypertension now she is hypotension and takes Midodrine to elevate bp ??? Joint pain ??? Osteoarthritis Past Surgical History: Procedure Laterality Date ??? BACK SURGERY N/A Back surgery from [facility] ??? DILATION AND CURETTAGE OF UTERUS ??? FOOT SURGERY Bilateral Foot surgery from [facility] ??? HYSTERECTOMY N/A Hysterectomy from [facility] ??? KNEE ARTHROPLASTY Bilateral ??? KNEE SURGERY Bilateral Knee Surgery from [facility] ??? SPINAL FUSION lumbar General Date of PT Session PT Received On: 01/23/21 Participants in Care Family/Caregiver Present: No Family/Caregiver: Spouse Survey Engineer: Not Applicable Precautions Left Lower Extremity Weight Bearing Status: Full weight Bearing Right Lower Extremity Weight Bearing Status: Non-Weight Bearing ROM Precautions: no restrictions Post-Surgical Precautions: no restrictions Presentation Lines and Tubes: Intravenous access Oxygen Therapy: None (Room air) Pre-Session: Supine, Head of bed elevated, Lines intact Pre-Session Comments: RN agreeable to PT session Post-Session: Lines intact, RN notified, Call light in reach (pt left sitting in wheelchair with az cushion in place) Prior Level of Function Home Living Lives With: Spouse Home Adaptive Equipment: Wheelchair-manual, Rolling walker, shower chair, Other (Comment) (sliding board) Home Living Comments: Pt lives with spouse in single story home. She had sitters/caregivers 5 days a week from 7am-3pm Home Layout: One level Home Access: Stairs to enter without rails Entrance Stairs-Number of Steps: 1 Bathroom Shower/Tub: Walk-in shower Bathroom Equipment: Tub transfer bench, Shower chair with back Prior Function Level of Bow: Needs assistance with ADLs, Needs assistance with homemaking, Needs assistance with functional transfers Receives Help From: Family, park attendant Bed Mobility/Transfers: Needs device and assist (uses w/c and sliding board and spouse assist) Pain Pain Assessment Pain Assessment: 0-10 Pain Score: 8 Pain Type: Surgical pain Pain Location: Leg Pain Orientation: Right Pain Descriptors: (phantom pain) Pain Frequency: Constant/continuous Pain Onset: Ongoing Clinical Progression: Not changed Pain Management Interventions: ambulation/increased activity, position adjusted Cognition Cognition Overall Cognitive Status: Within Functional Limits Arousal/Alertness: Appropriate responses to stimuli Orientation Level: Oriented X4 Single Step Commands: Constistently Multi-Step Commands: Constistently Method of Communication: Verbal Safety Judgment: Good awareness of safety precautions Awareness of Errors: Good awareness of errors made Deficit Awareness: Fully aware of deficits Attention Span: Appears intact Memory: Appears intact Problem Solving: Able to problem solve independently Perseveration: Not present RASS Gee Agitation Sedation Scale (RASS): Alert and calm Confusion Assessment Method-ICU (CAM-ICU/PCAM-ICU) Feature 3: Altered Level of Consciousness: Negative Coordination Perception Inattention/Neglect: Appears intact Initiation: Appears intact Motor Planning: Appears intact Coordination Movements are Fluid and Coordinated: Yes Balance/Posture: Postural Appearance Posture: Within Functional Limits Static Sitting Balance Static Sitting-Balance Support: Left upper extremity support, Right upper extremity support, Feet unsupported Static Sitting-Level of Assistance: Standby assist Dynamic Sitting Balance Dynamic Sitting-Balance Support: Left upper extremity support, Right upper extremity support, Feet supported Level of Assistance: Contact guard Bed Mobility Bed Mobility Exam: Rolling/Turning Level of Bow: Stand-by assist Physical/Nonphysical Assist: Verbal Cues, Supervision, 1 person assist Bed Mobility Exam: Scooting/Bridging Level of Bow: Stand-by assist Physical/Nonphysical Assist: Supervision, Verbal Cues, 1 person assist Bed Mobility Exam: Supine to Sit Level of Bow: Minimum assist (75% patient's effort) Physical/Nonphysical Assist: 2 persons, Verbal Cues, Set-up required, Supervision Assistive Device: Bed rails Transfers Transfer Exam: Sit to stand Level of Bow: (not appropriate at this time) Transfer Exam: Bed to Chair/Chair to Bed Level of Bow: Contact guard Physical/Nonphysical Assist: 1 person assist, Verbal Cues, Supervision Assistive Device: Sliding board Extremity Assessments RUE ROM Assessment RUE Assessment: Within Functional Limits Manual Muscle Testing - RUE Manual Muscle Testing - RUE: Within normal limits Light Touch: Right Upper Extremity: Intact LUE ROM Assessment LUE Assessment: Within Functional Limits Manual Muscle Testing - LUE Manual Muscle Testing - LUE: Within normal limits Light Touch: Left Upper Extremity: Intact RLE ROM Assessment RLE Assessment: (pt with AKA - Hip range of motion WFL) Manual Muscle Testing - RLE Manual Muscle Testing - RLE: (grossly 2+/5) Light Touch: Right Lower Extremity: (pt reporting phantom sensations) LLE ROM Assessment LLE Assessment: (hip WFL, ankle lacks ~7-10 degrees of dorsiflexion from neutral, knee WFL with spacer) Manual Muscle Testing - LLE Manual Muscle Testing: (grossly 2/5) Light Touch: Left Lower Extremity: Intact Standardized Assessments [facility] 6-Clicks Mobility Assessment Difficulty patient has turning over in bed (including adjusting bedclothes, sheets, and blankets)?:A little Difficulty patient has sitting down on and standing up from a chair with arms (wheelchair, bedside commode, etc.)?: A lot Difficulty patient has moving from lying on back to sitting on the side of the bed?: A little How much help does the patient need moving to and from a bed to a chair (including a wheelchair)?: A lot How much help does the patient need to walk in hospital room?: Unable How much help does the patient need climbing 3-5 steps with a railing?: Unable [facility] 6-Clicks Mobility Assessment Total : 12 Assessment PT Assessment PT Assessment: Patient participated in initial PT evaluation without adverse recations and does notdemonstrate need for acute PT services. Assessment Results: Decreased strength, Decreased endurance, Orthopedic restrictions Evaluation/Treatment Tolerance: Patient limited by fatigue, Patient limited by pain Impairments Found : Aerobic capacity/Endurance, Gait, locomotion and balance Pathology/Pathophysiology Noted (describe specifically for each system): Musculoskeletal, Integumentary, Neuromuscular Functional Limitations (describe): Self-care, Home management, Community/Leisure Clinical Presentation: Evolving clinical presentation with changing characteristics Clinical Decision Making: Moderate complexity Diagnosis: Impaired functional mobility s/p right AKA Patient/Family Goals Statement: Patient wants to go home Plan Plan Equipment Recommended: pt needs w/c seat cushion (will need evaluation for proper cushion) Additional Interventions: In addition to initial PT evaluation, the patient participated in 15 min of ther activity performing sliding board transfer bed to w/c with spouse assist for board placementand CGA during transfer. The pt did not have a LOB and required increased time for transfer and set-up of w/c. The patient and spouse were educated on importance of desensitization of residual limb to reduce phantom sensations, importance of obtaining appropriate w/c seat cushion to prevent wounds and give proper support to pt while she is seated in w/c, and benefits of HH to strengthen her lowerextremities in preparation for use of prosthesis. Both verbalized understanding. Amputee HEP and information sheet to be provided prior to discharge. Plan For Next Session: no further acute PT needs Discharge Recommendation: Home with assistance, Home with home health (PT/OT) Written/Dictated by Kary Harrison PT on 01/23/21 at 3:56 PM. * Progress Notes - oYlanda Mann OT - 01/23/2021 1:39 PM EDT Occupational Therapy Occupational Therapy Evaluation Patient Name: Trudi Blair Today's Date: 01/23/2021 Subjective Subjective: I just keep having pain in my right LE Patient Active Problem List Diagnosis ??? Staphylococcal arthritis of right knee (CMS/HCC) ??? Gastroesophageal reflux disease ??? Hiatal hernia ??? Primary hypertension ??? Staphylococcal arthritis, right knee (CMS/HCC) ??? 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 Anxiety ??? Cancer (CMS/HCC) cervical ??? Chronic pain disorder ??? Delayed emergence from general anesthesia ??? Diverticulosis ??? GERD (gastroesophageal reflux disease) ??? Hiatal hernia ??? History of transfusion ??? Hypercholesteremia ??? Hypertension now she is hypotension and takes Midodrine to elevate bp ??? Joint pain ??? Osteoarthritis Past Surgical History: Procedure Laterality Date ??? BACK SURGERY N/A Back surgery from [facility] ??? DILATION AND CURETTAGE OF UTERUS ??? FOOT SURGERY Bilateral Foot surgery from [facility] ??? HYSTERECTOMY N/A Hysterectomy from [facility] ??? KNEE ARTHROPLASTY Bilateral ??? KNEE SURGERY Bilateral Knee Surgery from [facility] ??? SPINAL FUSION lumbar General Date of OT Session Date of OT Session: 01/23/21 Participants in Care Family/Caregiver Present: Yes Family/Caregiver: Spouse Survey Engineer: Not Applicable Precautions Left Lower Extremity Weight Bearing Status: Full weight Bearing Right Lower Extremity Weight Bearing Status: Non-Weight Bearing Presentation Lines and Tubes: Intravenous access Oxygen Therapy: None (Room air) Pre-Session: Supine, Head of bed elevated, Lines intact Post-Session: Lines intact, RN notified (pt left sitting in wheelchair) Prior Level of Function Home Living Lives With: Spouse Home Adaptive Equipment: Wheelchair-manual, Rolling walker, shower chair, Other (Comment) (sliding board) Home Living Comments: Pt lives with spouse in single story home. She had sitters/caregivers 5 days a week from 7am-3pm Home Layout: One level Home Access: Stairs to enter without rails Entrance Stairs-Number of Steps: 1 Bathroom Shower/Tub: Walk-in shower Bathroom Equipment: Tub transfer bench, Shower chair with back Prior Function Level of Bow: Needs assistance with ADLs, Needs assistance with homemaking, Needs assistance with functional transfers Receives Help From: Family, park attendant Bed Mobility/Transfers: Needs device and assist (sliding board) Bathing: Needs device and assist (caregiver assist/shower seat) Upper Body Dressing: Needs assist (caregiver assist) Lower Body Dressing: Needs assist (caregiver assist) Grooming: Independent Toileting: Needs device and assist (drop arm BSC) Eating: Independent Home Management Skills: Unable to perform Pain Pain Assessment Pain Assessment: 0-10 Pain Score: 8 Pain Type: Surgical pain Pain Location: Leg Pain Orientation: Right Pain Descriptors: Other (Comment) (phantom pain) Pain Frequency: Constant/continuous Pain Onset: Ongoing Clinical Progression: Not changed Patient's Stated Pain Goal: No pain Cognition Cognition Overall Cognitive Status: Within Functional Limits Arousal/Alertness: Appropriate responses to stimuli Orientation Level: Oriented X4 Single Step Commands: Consistently Multi-Step Commands: Consistently Method of Communication: Verbal Safety Judgment: Good awareness of safety precautions Awareness of Errors: Good awareness of errors made Deficit Awareness: Fully aware of deficits Attention Span: Appears intact Memory: Appears intact Problem Solving: Able to problem solve independently Perseveration: Not present Gee Agitation Sedation Scale (RASS) Gee Agitation Sedation Scale (RASS): Alert and calm Confusion Assessment Method-ICU (CAM-ICU/PCAM-ICU) Feature 1: Acute Onset or Fluctuating Course: Negative Feature 3: Altered Level of Consciousness: Negative Overall CAM-ICU/PCAM-ICU: Negative Coordination Proprioception Proprioception: Within Normal Limits/Intact Perception Inattention/Neglect: Appears intact Initiation: Appears intact Motor Planning: Appears intact Coordination Movements are Fluid and Coordinated: Yes Balance/Posture: Postural Appearance Posture: Within Functional Limits Static Sitting Balance Static Sitting-Level of Assistance: Standby assist Dynamic Sitting Balance Level of Assistance: Contact guard Activity Tolerance Endurance: Tolerates 10 - 20 min activity with multiple rests Bed Mobility Bed Mobility Exam: Rolling/Turning Level of Bow: Stand-by assist Physical/Nonphysical Assist: Supervision, Verbal Cues, 1 person assist Bed Mobility Exam: Scooting/Bridging Level of Bow: Stand-by assist Physical/Nonphysical Assist: Supervision, Verbal Cues Bed Mobility Exam: Supine to Sit Level of Bow: Minimum assist (75% patient's effort) Physical/Nonphysical Assist: Supervision, Verbal Cues, 2 persons Bed Mobility Exam: Sit to Supine Level of Bow: (Pt left out of bed to wheelchair) Transfers Transfer Exam: Bed to Chair/Chair to Bed Level of Bow: Contact guard Physical/Nonphysical Assist: 1 person assist, Verbal Cues, Supervision Assistive Device: Sliding board Extremity Assessments RUE ROM Assessment RUE Assessment: Within Functional Limits RUE Tone RUE Tone: Within Functional Limits Manual Muscle Testing - RUE Manual Muscle Testing - RUE: Within normal limits Light Touch: Right Upper Extremity: Intact Pain Response: Right Upper Extremity: Intact LUE ROM Assessment LUE Assessment: Within Functional Limits LUE Tone LUE Tone: Within Functional Limits Manual Muscle Testing - LUE Manual Muscle Testing - LUE: Within normal limits Light Touch: Left Upper Extremity: Intact Pain Response: Left Upper Extremity: Intact RLE ROM Assessment RLE Assessment: (pt with AKA - Hip range of motion WFL.) Pain Response: Right Lower Extremity: Intact LLE ROM Assessment LLE Assessment: Exceptions to WFL (Pt with limited left LE range of motion due to having a knee spacer; hip WFL) Sensation Light Touch: Left Upper Extremity: Intact Pain Response: Left Upper Extremity: Intact Sensation Light Touch: Right Upper Extremity: Intact Pain Response: Right Upper Extremity: Intact Sensation Pain Response: Right Lower Extremity: Intact ADLs & IADLs Feeding Feeding Level of Assistance: Independent Grooming Grooming Level of Assistance: Independent, Setup (seated) Grooming Where Assessed: Edge of bed UE Dressing UE Dressing Level of Assistance: Independent, Setup (seated) UE Dressing Where Assessed: Edge of bed Lower Extremity Dressing Sock Level of Assistance: Maximum assistance Standardized Assessments Standardized Tests Standardized Tests: Tre Index Tre Index Feeding: Independent Bathing: Dependent Grooming: Independent face/hair/teeth/shaving (implements provided) Dressing: Needs help but can do about half unaided Bowels: Incontinent (or needs to be given enemas) Bladder: Incontinent, or catheterized and unable to manage alone Toilet Use: Needs some help but can do some things alone Transfers (Bed to Chair and Back): Minor help (verbal or physical) Mobility (on Level Surfaces): Wheelchair independent, including corners, > 50 yards Stairs: Unable Total Score: 40 Plan OT Assessment OT Assessment: Pt was seen for OT evaluation this date. Pt appears to be funtioning at baseline status with ADLs and functional mobility. Pt has paid caregivers daily to assist with all ADLs. All DMEis in place. Evaluation/Treatment Tolerance: Patient limited by pain Extent of Clinical Reasoning: Low analytic complexity Patient/Family Goals Statement: Pt would like to return home and be more independent with ADLs. Plan Plan For Next Session: Pt does not require skilled OT services. Discharge Recommendation: Home with assistance, Home with home health Equipment Recommended: wheelchair cushion Additional Interventions: In addition to the OT evaluation, pt was seen for functional mobility with use of a sliding board. Pt was able to direct therapist as to how she sets up her wheelchair and placement of siding board. Pt's spouse was also at bedside and was able to assist as he does at home.Pt utilizes a drop arm BSC at home. RN notified that pt will need a drop arm BSC for toileting needs. Written/Dictated by Yolanda Mann OT ON 01/23/21 at 3:31 PM. * Progress Notes - Yvonne Ochoa RN - 01/23/2021 11:11 AM EDT Case Management Adult Progress Note Trudi Blair 65 y.o. female CSN: [id number] Discussed patient this am with Ortho team. 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 She was taken to the OR 01/22/[address]21 for Right [address]A by Dr. Arango. Patient is not yet medically ready for discharge. To receive 2u PRBC today for low H&H. She has been wheelchair bound and has her own manual wheelchair in place. She resides with her Mahesh in [place], [place]. PT/OT are pending at this time. CM continues to follow. Anticipated Discharge Date: 01/25/2021 Has Discharge Plans Changed? No Medicare Second Notice: Housing Circumstances: Not Applicable Housing Circumstances Action Taken: Other None Additional Comments Yvonne Ochoa RN * Progress Notes - Selvin Hannon MD - 01/23/2021 10:42 AM EDT ORTHOPAEDIC SURGERY PROGRESS NOTE 01/23/21 SUBJECTIVE No acute events overnight. Patient doing well. States her pain is relatively well controlled although has some concerns of phantom limb pain this morning. Patient does not feel any dizziness, dyspnea, chest pain. Patient denies any nausea, vomiting, diarrhea. On a.m. labs this morning patient was found to have an H/H of 6.6/21.3. Patient was typed and crossed for 2 units packed red blood cells to be transfused. OBJECTIVE Visit Vitals BP 115/70 Pulse 73 Temp 36.8 ??C (98.3 ??F) Ht 1.676 m (5' 5.98 ) Wt 58.5 kg (128 lb 15.5 oz) SpO2 98% BMI 20.83 kg/m?? PHYSICAL EXAMINATION No acute distress Non labored breathing Peripheral perfusion intact FOCUSED MUSCULOSKELETAL EXAM Right lower extremity Dressing on residual limb is clean, dry, and intact. No evidence of dressing saturation at this time. Patient states she is having phantom limb pain at this time. ASSESSMENT AND PLAN Trudi Blair is a 65 y.o. female patient status post right above knee amputation 01/22/2021 Weight-bearing restrictions: Nonweightbearing right lower extremity DVT prophylaxis: ASA twice daily PT/OT today Patient symptoms already been evaluated by Prosthetics Follow up in Orthopedic surgery Clinic with Dr. Arango on 02/11/2021 Pain control Nutritional Optimization Bowel regimen DISPO: Patient to work with PT/OT today. Transfuse 2 units PRBC. Discharge pending PT/OT recommendations and medical stabilization. Selvin Hannon MD PGY-1, Orthopaedic Surgery [facility] Orthopaedic Trauma Service Pager: [phone] Orthopaedic Recon/Spine/Foot and Ankle Service Pager: [phone] Personal Pager: [phone] Cosigned by Edi Arango MD at 01/23/2021 10:54 AM EDT * Consults - Emily Tinsley RD - 01/23/2021 9:55 AM EDT Adult Nutrition Evaluation Note Trudi Blair 65 y.o. female CSN: [id number] Room/Bed 602/602A Nutrition evaluation type: assessment Reason for evaluation: nursing nutrition screen (unintentional wt loss) Hospital course: 64 y/o female presented 01/22 for planned right AKA. S/p right AKA on 01/22. Past medical/ surgical history: Past Medical History: Diagnosis Date ??? Anxiety ??? Cancer (CMS/HCC) cervical ??? Chronic pain disorder ??? Delayed emergence from general anesthesia ??? Diverticulosis ??? GERD (gastroesophageal reflux disease) ??? Hiatal hernia ??? History of transfusion ??? Hypercholesteremia ??? Hypertension now she is hypotension and takes Midodrine to elevate bp ??? Joint pain ??? Osteoarthritis Past Surgical History: Procedure Laterality Date ??? BACK SURGERY N/A Back surgery from [facility] ??? DILATION AND CURETTAGE OF UTERUS ??? FOOT SURGERY Bilateral Foot surgery from [facility] ??? HYSTERECTOMY N/A Hysterectomy from [facility] ??? KNEE ARTHROPLASTY Bilateral ??? KNEE SURGERY Bilateral Knee Surgery from [facility] ??? SPINAL FUSION lumbar Social history: Social History Tobacco Use ??? Smoking status: Never Smoker ??? Smokeless tobacco: Never Used Substance Use Topics ??? Alcohol use: Never ??? Drug use: Never Additional comments: 01/23: Visited pt today. She endorses a poor appetite for the past couple of years. She says she generally eats 3 meals/day but they are small. She's tolerating her diet okay here. Denies chewing/swallowing difficulties. Denies current N/V/D. Says she may be constipated - reports last BM to be yesterday. Pt endorses unintentional weight loss over the past 3 years. She says she was weighing ~300# and got down to ~128#. She says the last time she was discharged from the hospital ([facility]) she was weighing ~128# but might have gained some weight back due to eating well after discharge.She denies any known food allergies. Willing to drink Boost if it's chocolate - says strawberry flav or has made her sick in the past. Explained nationwide shortage of chocolate Boost. Pt says she'd be willing to do a chocolate milkshake or carnation instant breakfast. Vitals and Basic Assessment: BP: 106/68 Temp: 36.6 ??C (97.8 ??F) Oxygen Therapy: None (Room air) O2 Delivery Method: Partial rebreather mask Jennifer Coma Scale Score: 15 Cain Scale Score: 18 GI Symptoms: None Edema: Left lower extremity Skin: incision right AKA + PICC Allergies: Reviewed, NKFA Medications: acetaminophen, 1,000 mg, Oral, q8h TAJ aspirin, 81 mg, Oral, BID atorvastatin, 20 mg, Oral, Nightly calcium-vitamin D, 1 tablet, Oral, BID with meals ceFAZolin, 2 g, Intravenous, q8h gabapentin, 100 mg, Oral, q8h hyoscyamine, 0.125 mg, Oral, BID metoclopramide, 10 mg, Oral, BID midodrine, 10 mg, Oral, BID morphine CR, 30 mg, Oral, BID pantoprazole, 40 mg, Oral, Daily before breakfast polyethylene glycol, 17 g, Oral, Daily potassium chloride, 10 mEq, Oral, BID Povidone-Iodine, 1 Swab, Nasal, Daily scopolamine, 1 patch, Transdermal, Once senna-docusate, 2 tablet, Oral, Nightly topiramate, 50 mg, Oral, BID traZODone, 50 mg, Oral, Nightly lactated Ringer's, 100 mL/hr, Last Rate: 100 mL/hr (01/22/21 1623) lactated Ringer's, 100 mL/hr, Last Rate: 100 mL/hr (01/22/21 1645) bethanechol, bisacodyl, diphenhydrAMINE, diphenhydrAMINE, HYDROmorphone, magnesium hydroxide, ondansetron, oxyCODONE OR oxyCODONE, promethazine, traMADol Meds were reviewed: Yes Labs: Lab Results Component Value Date WBC 8.30 01/23/2021 HGB 6.6 (L) 01/23/2021 HCT 21.3 (L) 01/23/2021 MCV 85 01/23/2021 PLT 355 01/23/2021 Lab Results Component Value Date GLUCOSE 111 (H) 01/23/2021 CALCIUM 8.4 (L) 01/23/2021 NA 131 (L) 01/23/2021 K 4.3 01/23/2021 CO2 21 (L) 01/23/2021 CL 101 01/23/2021 BUN 16 01/23/2021 CREATININE 0.99 01/23/2021 Anthropometrics: Admit Height (CM) 167.6 cm Admit Weight (KG) 58.5 kg Current Weight (KG) 58.5 kg BMI 20.83 Weight Evaluation Normal IBW (KG) 52.6 kg Percent IBW 111% Adjusted Weight (KG) -- Weight History Per EMR: Wt Readings from Last 6 Encounters: 01/22/21 58.5 kg (128 lb 15.5 oz) 12/24/20 58.5 kg (129 lb) 09/10/20 62.1 kg (137 lb) 06/04/20 75 kg (165 lb 5.5 oz) 03/05/20 75 kg (165 lb 5.5 oz) 01/23/20 75.3 kg (165 lb 15.8 oz) Reported UBW: Additional Comments - Will wait to adjust BMI for amputation until new weight is obtained post-op - IBW adjusted by 11% for AKA EMR indicates possible weight loss of ~22% x 1 year (severe if accurate) Estimated Needs: Provided Based On Weight Used Kcal/day 1211-9958 28-30 kcal/kg Admit Protein/day 70-88 1.2-1.5 g/kg Admit Fluid/day 1 mL/kcal or per MD team Admit Additional Comments Current Nutrition Intake: Current Diet Order Regular Avg PO Intakes per RN Flowsheets Establishing Oral Nutrition Supplements Boost Plus TID Diet EDU Provided Will monitor need throughout LOS Orthodoxy/ Cultural Needs Ethnic needs not identified at this time Additional Comments Diet Experience and Nutrition History: Pertinent home medications: Micro-K Nutrition Focused Physical Exam: Physical exam performed on (date): Deferred d/t potential for pt discomfort Assessment of Malnutrition: Unable to fully assess Malnutrition is likely 2/2 reported weight loss, decreased PO intakes. Will attempt to confirm withNFPE as able. Nutrition Problem: Increased nutrient needs (kcal, pro) related to tissue repair as evidenced by s/p right AKA. Status of Nutrition Diagnosis: New Nutrition Interventions and Recommendations: - Continue Regular diet as tolerated. - Adjusting to chocolate [place] Instant Breakfast TID as there is a nationwide shortage of chocolate Boost Plus. - Please note that due to current supply chain issues, pt may not consistently receive supplement as ordered. This is actively working to be resolved. - Adding Simón BID (140 kcal, 14g total L-Arginine and 14g L-Glutamine) to promote wound healing. - Rec MVI with mineral daily. - Rec obtaining weight 1x/week. Nutrition Monitoring and Goals: - Will monitor PO intake, weight status, lab results, GI tolerance, and skin integrity. - Pt will tolerate >75% avg of meal intakes. - Pt will maintain weight this admission. - Promote healing. Discharge Planning: RD to monitor for nutrition related discharge needs. Acuity Level: [address] * Significant Event - Kary Harrison, PT - 01/23/2021 9:43 AM EDT PT/OT consults received and chart reviewed. Per RN patient is receiving second unit of blood. Will reattempt as schedules permit. Cosigned by Yolanda Mann OT at 01/23/2021 3:00 PM EDT Associated attestation - Yolanda Landers - 01/23/2021 3:00 PM EDT OT was present and agrees with statement. Yolanda Mann OTR/L * Consults - Guille Bazan MD - 01/22/2021 8:49 PM EDT Consults History Of Present Illness Trudi Blair is a 65 y.o. female with failed non operative management of infected right knee / septic arthritis. She underwent AKA today. She is seen in the PACU. She has had significant pain post op . She has received fentanyl, dilaudid and oxycodone. She still had signigicant pain and received 2mg of Versed in the PACU. She is resting comfortably but is currently unable to respond to my questions. Past Medical History She has a past [...] and curettage of uterus; and Spinal fusion. Social History She reports that she has never smoked. She has never used smokeless tobacco. She reports that she does not drink alcohol and does not use drugs. Allergies Clarithromycin Medications Medications Prior to Admission Medication Sig Dispense Refill Last Dose ??? atorvastatin (Lipitor) 20 MG tablet Take 20 mg by mouth every night. 01/21/2021 at Unknown time ??? hyoscyamine (Anaspaz,Levsin) 0.125 MG tablet Take 0.125 mg by mouth 2 (two) times a day. 01/22/2021 at Unknown time ??? metoclopramide (Reglan) 10 MG tablet Take 10 mg by mouth 2 (two) times a day. 01/21/2021 at Unknown time ??? midodrine (Proamatine) 10 MG tablet Take 10 mg by mouth 2 (two) times a day. 01/22/2021 at Unknown time ??? morphine CR (MS Contin) 15 MG 12 hr tablet Take 30 mg by mouth 2 (two) times a day. 2 tablets twice daily 01/22/2021 at Unknown time ??? pantoprazole (ProtoNix) 40 MG EC tablet Take 40 mg by mouth 1 (one) time each day before breakfast. 01/22/2021 at Unknown time ??? polyethylene glycol (Miralax) 17 g packet Take 17 g by mouth 1 (one) time each day. 01/21/2021 at Unknown time ??? potassium chloride ER (Micro-K) 10 MEQ ER capsule Take 10 mEq by mouth 2 (two) times a day. 01/21/2021 at Unknown time ??? promethazine (Phenergan) 25 MG tablet Take 25 mg by mouth every 6 (six) hours if needed for nausea or vomiting. 01/19/2021 at Unknown time ??? topiramate 50 MG tablet Take 50 mg by mouth 2 (two) times a day. 01/22/2021 at Unknown time ??? traZODone (Desyrel) 50 MG tablet Take 50 mg by mouth every night. 01/21/2021 at Unknown time Review of Systems Unable to perform ROS: Other Physical Exam Vitals and nursing note reviewed. Constitutional: Appearance: She is well-developed. HENT: Head: Normocephalic and atraumatic. Mouth/Throat: Mouth: Mucous membranes are moist. Eyes: Extraocular Movements: Extraocular movements intact. Conjunctiva/sclera: Conjunctivae normal. Cardiovascular: Rate and Rhythm: Normal rate and regular rhythm. Heart sounds: Normal heart sounds. Pulmonary: Effort: Pulmonary effort is normal. Breath sounds: Normal breath sounds. Abdominal: General: Abdomen is flat. Bowel sounds are normal. There is no distension. Palpations: Abdomen is soft. Musculoskeletal: Cervical back: Normal range of motion and neck supple. Comments: Right AKA with dressing intact Skin: General: Skin is warm and dry. Coloration: Skin is not jaundiced. Findings: No bruising. Neurological: General: No focal deficit present. Mental Status: She is alert. Motor: No weakness. Last Recorded Vitals Blood pressure 122/77, pulse 79, temperature 36.4 ??C (97.6 ??F), resp. rate (!) 30, height 1.676 m(5' 5.98 ), weight 58.5 kg (128 lb 15.5 oz), SpO2 98 %. 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 DVT prophylaxis per Orthopedics recommendations. HTN by history but currently she татьяна been on midodrine for relative hypotension as an outpatient. Follow BP will likely need to continue midodrine HLD: Continue statin therapy Chronic pain. Has been on MS Contin 15mg BID as an outpatient. Pain mgmt per orthopedics for now. Patient on topiramate will discuss with her in AM * Nursing Note - Mike Mccrary RN - 01/22/2021 7:14 PM EDT Right AKA * Significant Event - Barb Gardner RN - 01/22/2021 5:[address] Hicks, reviewed patient's status and Versed 2mg was ordered and given. Patient resting comfortably. * Anesthesia PACU Signout - Ernesto Hicks - 01/22/2021 5:03 PM EDT Patient: Trudi Blair Anesthesia Type: general Vitals Value Taken Time BP 124/83 01/22/21 1700 Temp 36.8 ??C (98.3 ??F) 01/22/21 1655 Pulse 94 01/22/21 1702 Resp 18 01/22/21 1702 SpO2 96 % 01/22/21 170 Vitals shown include unvalidated device data. Anesthesia PACU Signout Patient location during evaluation: PACU Level of consciousness: baseline Pain management: adequate (pain score 0-3) Airway patency: natural airway Hydration status: acceptable PONV: none Cardiovascular status: acceptable Respiratory status: acceptable * Significant Event - Barb Gardner RN - 01/22/2021 4:27 PM EDT Patient continues to have pain that she states is out of control and 01/12 at this time, I believeit is getting worse. To this point in her care the patient has received 3mg of Dilaudid, 100mg Fentanyl, and 10mg PO Oxycodone from 1514. Per Dr. Hicks of Anesthesia we will not be giving any additional medication for pain at this time. I have contacted the [facility], Jessica Milan, to have the team make a determination regarding additional medications for pain relief. Patient was taking 30mg of MS contin twice a day at home prior to surgery. Dr. Bazan of [facility] has been contacted that the patient is out of surgery. * Op Note - Edi Arango MD - 01/22/2021 2:14 PM EDT Operative Note: Amputation, Lower Extremity (R) Date: 01/22/21 Location: [facility] OR Name: Trudi Blair, : 1955, Diagnoses: Pre-op Diagnosis * Staphylococcal arthritis of right knee (CMS/HCC) [M00.061] Post-op Diagnosis * Staphylococcal arthritis of right knee (CMS/HCC) [M00.061] Procedure(s): AMPUTATION, LOWER EXTREMITY WY AMPUTATE THIGH+STAT FITTING WY AMPUTATE THIGH,THRU FEMUR Attending Surgeon(s): * Edi Arango - Primary Linen Manager(s): manohar Anesthesia: * No anesthesia type entered * ASA: III Blood Administration: Blood Product Administration History None Estimated Blood Loss: Minimal Drains: * None in log * Specimen: Specimens ID Source Type Tests Collected By Collected At Frozen? Priority Lab ID 1 Leg, Right Tissue ?? SURGICAL PATHOLOGY EXAM Edi Arango MD 01/22/21 [id number] Description: right AKA - fresh for permanent Findings: Indications: Trudi Blair is an 65 y.o. female who is having surgery for Staphylococcal arthritisof right knee ([facility]) [M00.061]. Narrative: Patient is a 65-year-old female who has failed non operative management for infected right knee septic arthritis she has developed purulent sinus draining tract and significant pain on due to her overall medical status the risks benefits and alternatives of this above knee amputation were discussedwith the patient and her preoperatively and they consented these risks included were not limited to bleeding infection damage to nerves and blood vessels heart attack stroke need for additional surgical procedure DVT PE fracture- dislocation or inability rid her of her pain. Patient met the preoperative holding area surgical of the signed surgical site was reviewed she agreed she has taken operating room induced under general anesthetic placed supine apneic table surgical extremities prepped draped normal sterile fashion a surgical time-out performed cord hospital policy patient received antibiotics prior surgical incision [place] style incision incorporating the previous laterally based incision was utilized given thesubcutaneous tissues to through the quadriceps fascia we used the LigaSure to come through all the quadriceps musculature down to level femur we then carried the dissection through the posterior aspect of the limb through the posterior upper thigh fascia and sequentially released all the hamstrings musculature the sciatic nerve was then identified and suture ligated and allowed to retract into the thigh we came through the adductor compartment into the femoral canal the femoral vessels were suture ligated and allowed to retract with circumferential exposure of the femur an oscillating saw wasutilized to osteotomize through the femur just proximal to the previous cemented fusion the limb was removed from the patient hemostasis was obtained was closed in surgical layers sterile dressings were applied the 1st Erwin style cast was applied to allow for postoperative swelling the end of surgical procedure all sponge and lap counts were appropriate account for Complications: None; patient tolerated the procedure well. 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 Right above knee amputation Attending Surgeon(s): * Edi Arango - Primary Linen Manager(s): Yousif Amaral MD - PGY4 Lesli Mccabe APRN Anesthesia: * No anesthesia type entered * ASA: III Blood Administration: Blood Product Administration History None Estimated Blood Loss: see op note Drains: * None in log * Specimen: Specimens ID Source Type Tests Collected By Collected At Frozen? Priority Lab ID 1 Leg, Right Tissue ?? SURGICAL PATHOLOGY EXAM Edi Arango MD 01/22/21 1420 Description: right AKA - fresh for permanent Findings: see op note Complications: None; patient tolerated the procedure well. Submitted by: Yousif Amaral MD - 01/22/2021 - 3:01 PM Cosigned by Edi Arango MD at 01/22/2021 3:03 PM EDT * Interval H&P Note - Yousif Amaral MD - 01/22/2021 12:15 PM EDT H&P reviewed. The patient was examined and there are no changes to the H&P. Source Note - Yousif Amaral MD - 12/24/2020 11:20 [...] She went to Dr. Madison and [facility] a few weeks ago where she [...] reviewed and interpreted by myself and Dr. Arango. Three views right knee demonstrates no evidence [...] right the above knee amputation in order andoptimize patient's quality life and strive for infection control. Informed consent was obtained. COVID test ordered. Will plan for surgical intervention when operative time available. ?? Dr Arango was present for this visit, reviewed images and agrees w/ plan. Respectfully yours, Yousif Amaral MD Dept. of Orthopaedic Surgery and Sports Medicine, Resident Physician Pager: [phone] Cosigned by Edi Arango MD at 12/24/2020 3:11 PM EDT * Preprocedure Instructions - Elizabet Loja - 01/20/2021 10:37 AM EDT Current Medications Medication Instructions ??? atorvastatin (Lipitor) 20 MG tablet Take the full dose (usual dose) night before surgery ??? hyoscyamine (Anaspaz,Levsin) 0.125 MG tablet Take morning of surgery ??? metoclopramide (Reglan) 10 MG tablet Take morning of surgery ??? midodrine (Proamatine) 10 MG tablet Take morning of surgery ??? mirtazapine (Remeron) 15 MG tablet Take the full dose (usual dose) night before surgery ??? morphine CR (MS Contin) 15 MG 12 hr tablet Take as needed ??? pantoprazole (ProtoNix) 40 MG EC tablet Take morning of surgery ??? polyethylene glycol (Miralax) 17 g packet Hold day of surgery ??? potassium chloride ER (Micro-K) 10 MEQ ER capsule Hold day of surgery ??? promethazine (Phenergan) 25 MG tablet Take as needed ??? topiramate (Topamax) 25 MG tablet Take morning of surgery ??? traZODone (Desyrel) 50 MG tablet Take the full dose (usual dose) night before surgery General Preoperative Instructions You will be called the business day before surgery with your arrival time Do not eat or drink anything after midnight except water with your medications unless other instructions are given No alcohol or smoking prior to surgery Arrive on time to avoid delays Parking/Registration procedure explained You MUST have a responsible adult available for transport to and from hospital Visitation policy for the day of surgery reviewed Bring insurance card, photo ID, along with power of adjuster and inspector, guardianship or advanced directives if applicable Do not bring money, jewelry or other valuables Hibiclens bathing instructions reviewed if applicable Notify surgeon of fever, illness, any changes or if you decide not to have surgery Pediatric patients under 12 years of age (If applicable) No solid food or milk after midnight Formula 6 hours prior to arrival for surgery Breast milk 4 hours prior to arrival surgery Clear liquids 2 hours prior to arrival for surgery Diabetes Instructions (If applicable) Take diabetes medication as instructed You may have up to 4 ounces of apple juice 2 hours prior to arrival for surgery for low glucose documented in this encounter Plan of Treatment Not on file documented as of this encounter Procedures Procedure Name Priority Date/Time Associated Diagnosis Comments CBC W/O DIFFERENTIAL Routine 01/24/2021 3:03 AM EDT TRANSFUSE RED BLOOD CELLS Routine 01/23/2021 9:04 AM EDT TRANSFUSE RED BLOOD CELLS Routine 01/23/2021 6:35 AM EDT PREPARE RBC STAT 01/23/2021 5:04 AM EDT CBC W/O DIFFERENTIAL Routine 01/23/2021 2:55 AM EDT BASIC METABOLIC PANEL, PLASMA Routine 01/23/2021 2:55 AM EDT SURGICAL PATHOLOGY EXAM Routine 01/22/2021 2:20 PM EDT Staphylococcal arthritis of right knee (CMS/HCC) WY AMPUTATE THIGH+STAT FITTING 01/22/2021 1:37 PM EDT Staphylococcal arthritis of right knee (CMS/HCC) Special Needs R AKA 90 minutes TYPE AND SCREEN Routine 01/22/2021 11:32 AM EDT BASIC METABOLIC PANEL, PLASMA Routine 01/22/2021 11:32 AM EDT PREPARE RBC Routine 01/22/2021 9:46 AM EDT documented in this encounter Results * (ABNORMAL) CBC W/O Differential (01/24/2021 3:03 AM EDT) WBC Count 7.61 3.70 - 10.30 10*3/uL LAB HEMATOLOGY METHOD 01/24/2021 3:44 AM EDT [facility] RBC Count 2.96(L) 3.90 - 5.20 10*6/uL LAB HEMATOLOGY METHOD 01/24/2021 3:44 AM EDT [facility] HGB 8.1(L) 11.2 - 15.7 g/dL LAB HEMATOLOGY METHOD 01/24/2021 3:44 AM EDT [facility] HCT 24.9(L) 34.0 - 45.0 % LAB HEMATOLOGY METHOD 01/24/2021 3:44 AM EDT [facility] Platelet Count 282 155 - 369 10*3/uL LAB HEMATOLOGY METHOD 01/24/2021 3:44 AM EDT [facility] MCV 84 79 - 98 fL LAB HEMATOLOGY METHOD 01/24/2021 3:44 AM EDT [facility] MCH 27.4 26.0 - 32.0 pg LAB HEMATOLOGY METHOD 01/24/2021 3:44 AM EDT [facility] MCHC 32.5 30.7 - 35.5 g/dL LAB HEMATOLOGY METHOD 01/24/2021 3:44 AM EDT [facility] RDW 15.2(H) 11.5 - 14.5 % LAB HEMATOLOGY METHOD 01/24/2021 3:44 AM EDT [facility] MPV 9.6 8.8 - 12.5 fL LAB HEMATOLOGY METHOD 01/24/2021 3:44 AM EDT [facility] nRBC 0.0 <=0.0 per 100 WBCs LAB HEMATOLOGY METHOD 01/24/2021 3:44 AM EDT [facility] Blood Venous blood specimen / Unknown Venipuncture / Unknown 01/24/2021 3:03 AM EDT 01/24/2021 3:41 AM EDT Jessica Milan [facility] LAB BLOOD ORDERABLES Final Re sult Performing Organization Address City/State/[facility] Co de Phone Number [facility] [address] [place] [address] * Transfuse RBC (01/23/2021 11:16 PM EDT) Edi Arango MD BLOOD TRANSFUSION ORDERAB LES Final Result * Transfuse RBC: 2 Units (01/23/2021 11:16 PM EDT) Edi Arango MD BLOOD TRANSFUSION ORDERAB LES Final Result * Transfuse RBC (01/23/2021 11:15 PM EDT) Edi Arango MD BLOOD TRANSFUSION ORDERAB LES Final Result * Prepare Leukocyte Reduced RBC: 2 Units (01/23/2021 5:04 AM EDT) [facility] Signature Product Code [id number] BLOO D BANK Dispense Status Released BLOOD BANK Blood Expiration Date BLOOD BANK Unit Number [id number] GS B LOOD BANK Product Blood Type 5100 BLOOD BANK Blood Type O+ BLOOD BANK Crossmatch Compatible BLOOD BANK Product Code [id number] BLOO D BANK Dispense Status Transfused BLOOD BANK Blood Expiration Date BLOOD BANK Unit Number [id number] GS B LOOD BANK Product Blood Type 5100 BLOOD BANK Blood Type O+ BLOOD BANK Crossmatch Compatible BLOOD BANK Other Edi Arango MD BLOOD BANK PRODUCT ORDERA BLES Final Result [place] [address], * (ABNORMAL) Basic metabolic panel (01/23/2021 2:55 AM EDT) Glucose, Plasma 111(H) 74 - 99 mg/dL 01/23/2021 3:41 AM EDT [facility] BUN, Plasma 16 8 - 23 mg/dL 01/23/2021 3:41 AM EDT [facility] Creatinine, Plasma 0.99 0.60 - 1.10 mg/dL 01/23/2021 3:41 AM EDT [facility] BUN/Creatinine Ratio 16 01/23/2021 3:41 AM EDT [facility] Sodium, Plasma 131(L) 136 - 145 mmol/L 01/23/2021 3:41 AM EDT [facility] Potassium, Plasma 4.3 3.7 - 4.8 mmol/L 01/23/2021 3:41 AM EDT [facility] Chloride, Plasma 101 97 - 107 mmol/L 01/23/2021 3:41 AM EDT [facility] CO2, Plasma 21(L) 22 - 29 mmol/L 01/23/2021 3:41 AM EDT [facility] Anion Gap 9 6 - 16 mmol/L 01/23/2021 3:41 AM EDT [facility] Total Calcium, Plasma 8.4(L) 8.9 - 10.2 mg/dL 01/23/2021 3:41 AM EDT [facility] eGFR 56(L) >60 mL/min/1.7 3m*2 01/23/2021 3:41 AM EDT [facility] Comment:eGFR = estimated GFR ; eGFR units = mL/min/1.73 sq meters Chronic Kidney Disease is considered if eGFR <60 mL/min/1.73 sq meters Kidney failure is considered if eGFR is <15 mL/min/1.73 sq meters. eGFR assumes steady state plasma creatinine concentration; not applicable if renal function is rapidly changing or patient is on dialysis. eGFR, if AFR/AM >60 >60 mL/min/1.7 3m*2 01/23/2021 3:41 AM EDT [facility] Comment:eGFR = estimated GFR ; eGFR units = mL/min/1.73 sq meters Chronic Kidney Disease is considered if eGFR <60 mL/min/1.73 sq meters Kidney failure is considered if eGFR is <15 mL/min/1.73 sq meters. eGFR assumes steady state plasma creatinine concentration; not applicable if renal function is rapidly changing or patient is on dialysis. Blood Venous blood specimen / Unknown Venipuncture / Unknown 01/23/2021 2:55 AM EDT 01/23/2021 3:19 AM EDT us Lesli L Profitt [facility] LAB BLOOD ORDERABLES Final Result Performing Organization Address City/State/[facility] Co de Phone Number [facility] [address] [place] [phone] * (ABNORMAL) CBC (01/23/2021 2:55 AM EDT) WBC Count 8.30 3.70 - 10.30 10*3/uL LAB HEMATOLOGY METHOD 01/23/2021 3:22 AM EDT [facility] RBC Count 2.50(L) 3.90 - 5.20 10*6/uL LAB HEMATOLOGY METHOD 01/23/2021 3:22 AM EDT [facility] HGB 6.6(L) 11.2 - 15.7 g/dL LAB HEMATOLOGY METHOD 01/23/2021 3:22 AM EDT [facility] HCT 21.3(L) 34.0 - 45.0 % LAB HEMATOLOGY METHOD 01/23/2021 3:22 AM EDT [facility] Platelet Count 355 155 - 369 10*3/uL LAB HEMATOLOGY METHOD 01/23/2021 3:22 AM EDT [facility] MCV 85 79 - 98 fL LAB HEMATOLOGY METHOD 01/23/2021 3:22 AM EDT [facility] MCH 26.4 26.0 - 32.0 pg LAB HEMATOLOGY METHOD 01/23/2021 3:22 AM EDT [facility] MCHC 31.0 30.7 - 35.5 g/dL LAB HEMATOLOGY METHOD 01/23/2021 3:22 AM EDT [facility] RDW 14.4 11.5 - 14.5 % LAB HEMATOLOGY METHOD 01/23/2021 3:22 AM EDT [facility] MPV 9.5 8.8 - 12.5 fL LAB HEMATOLOGY METHOD 01/23/2021 3:22 AM EDT [facility] nRBC 0.0 <=0.0 per 100 WBCs LAB HEMATOLOGY METHOD 01/23/2021 3:22 AM EDT [facility] Blood Venous blood specimen / Unknown Venipuncture / Unknown 01/23/2021 2:55 AM EDT 01/23/2021 3:19 AM EDT Lesli Mccabe [facility] LAB BLOOD ORDERABLES Final Result [facility] [address] [place] [address] * Surgical Pathology Exam (01/22/2021 2:20 PM EDT) Case Report Surgical Pathology ?Case: [id number] ? Authorizing Provider: ??Edi Arango MD ?Collected: ? 01/22/2021 1420 ? Ordering Location: ? [facility] ? Received: ?01/22/2021 1508 ? Pathologist: ? Patricia Cedeno MD ? Specimen: ?Leg, Right, right AKA - fresh for permanent ? 02/03/2021 3:10 PM EDT [facility] Correction History Delayed decalcified slides, so final diagnosis delayed 02/03/2021 3:10 PM EDT [facility] Comment:These results have b een appended to a previously final verified report. Final Diagnosis RIGHT [id number] AMPUTATION: -SOFT TISSUE INFLAMMATION AND NECRO-INFLAMMATORY DEBRIS. -ACUTE OSTEOMYELITIS. -CALCIFIC ATHEROSCLEROSIS. -VIABLE SOFT TISSUE MARGINS. 02/03/2021 3:10 PM EDT [facility] Amendment electronically signed by Patricia Cedeno MD on 02/03/2021 at 3:10 PM Comment:Corrected result: Pr eviously reported as [Previous value contains rich text formatting which cannot be displayed here] (see Result History) on 01/31/2021 at 1207 EDT. Comment 02/03/2021 3:10 PM EDT [facility] Comment:Corrected result: Pr eviously reported as [Previous value contains rich text formatting which cannot be displayed here] (see Result History) on 01/31/2021 at 1207 EDT. Clinical Information Pre-op diagnosis: Staphylococcal arthritis of right knee ([facility]) [M00.061] 02/03/2021 3:10 PM EDT [facility] Gross Description A. RIGHT AKA - FRESH FOR PERMANENT Received fresh labeled right AKA is an ntwfo-tef-ydie amputation specimen (leg length-61 cm, foot length-23.5 cm). Underlying the superior aspect of the lower leg there is a focal variegated red-brown to esparza-yellow area of ulceration with dense white fibrotic scar (2.2 x 1.2 cm). The remainder of the epidermal surface is esparza-white and bosselated with no additional areas of ulceration identified. The ungues are esparza-yellow and markedly thickened. Oncology Specialist sections are submitted upon decalcification as follows: A1: Soft tissue resection margin A2: Bone marrow bone resection margin A3-A4: Area of ulceration underlying bone (some of the tissue was too hard and was removed from the blocks SQ) ZECHARIAH Michele (ASCP) 02/03/2021 3:10 PM EDT [facility] Comment:Corrected result: Pr eviously reported as [Previous value contains rich text formatting which cannot be displayed here] (see Result History) on 01/31/2021 at 1207 EDT. 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7 3.7 - 4.8 mmol/L 01/22/2021 12:05 PM EDT [facility] Chloride, Plasma 97 97 - 107 mmol/L 01/22/2021 12:05 PM EDT [facility] CO2, Plasma 22 22 - 29 mmol/L 01/22/2021 12:05 PM EDT [facility] Anion Gap 11 6 - 16 mmol/L 01/22/2021 12:05 PM EDT [facility] Total Calcium, Plasma 9.1 8.9 - 10.2 mg/dL 01/22/2021 12:05 PM EDT [facility] eGFR >60 >60 mL/min/1.7 3m*2 01/22/2021 12:05 PM EDT [facility] Comment:eGFR = estimated GFR ; eGFR units = mL/min/1.73 sq meters Chronic Kidney Disease is considered if eGFR <60 mL/min/1.73 sq meters Kidney failure is considered if eGFR is <15 mL/min/1.73 sq meters. eGFR assumes steady state plasma creatinine concentration; not applicable if renal function is rapidly changing or patient is on dialysis. eGFR, if AFR/AM >60 >60 mL/min/1.7 3m*2 01/22/2021 12:05 PM EDT [facility] Comment:eGFR = estimated GFR ; eGFR units = mL/min/1.73 sq meters Chronic Kidney Disease is considered if eGFR <60 mL/min/1.73 sq meters Kidney failure is considered if eGFR is <15 mL/min/1.73 sq meters. eGFR assumes steady state plasma creatinine concentration; not applicable if renal function is rapidly changing or patient is on dialysis. Blood Venous blood specimen / Unknown 01/22/2021 11:32 AM EDT 01/22/2021 11:36 AM EDT Ernesto Hicks MD LAB BLOOD ORDERABLES Final R esult [facility] [address] [place] [address] * Type and Screen (01/22/2021 11:32 AM EDT) ABO/Rh O Positive 01/22/2021 10:40 AM EDT BLOOD BANK Antibody Screen Negative 01/22/2021 10:40 AM EDT BLOOD BANK Blood Venous blood specimen / Unknown Venipuncture / Unknown 01/22/2021 11:32 AM EDT 01/22/2021 11:40 AM EDT Ernesto Hicks MD LAB BLOOD BANK TEST ORDERABL ES Final Result BLOOD BANK [address] [place] [address], * Prepare Leukocyte Reduced RBC: 1 Units (01/22/2021 9:46 AM EDT) Product Code [id number] BLOO D BANK Dispense Status Transfused BLOOD BANK Blood Expiration Date [id number] BLOOD BANK Unit Number [id number] B LOOD BANK Product Blood Type 5100 BLOOD BANK Blood Type O+ BLOOD BANK Crossmatch Compatible BLOOD BANK Other us Edi Arango MD BLOOD BANK PRODUCT ORDERA BLES Final Result BLOOD BANK [address] [place] [address], documented in this encounter Visit Diagnoses Diagnosis Staphylococcal arthritis of right knee (CMS/HCC)- Primary 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, sequela Gastroesophageal reflux disease Esophageal reflux Hiatal hernia Diaphragmatic hernia without mention of obstruction or gangrene Primary hypertension Unspecified essential hypertension 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, sequela documented in this encounter Admitting Diagnoses Diagnosis Staphylococcal arthritis of right knee (CMS/HCC) Staphylococcal arthritis, right knee (CMS/HCC) 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, sequela documented in this encounter Administered Medications Inactive Administered Medications - up to 3 most recent administrations Medication Order MAR Action Action Date Dose Rate Site acetaminophen (Tylenol) tablet 1,000 mg 1,000 mg, Oral, Every 8 hours scheduled, First dose on Wed01/22/21 at 1645, Until Discontinued, Routine, Recovery(Phase II-Outpatient)/On Unit(Inpatient) Given 01/24/2021 6:28 AM EDT 1,000 mg Given 01/23/2021 10:01 PM EDT 1,000 mg Given 01/23/2021 2:15 PM EDT 1,000 mg aspirin chewable tablet 81 mg 81 mg, Oral, 2 times daily, First dose on Wed01/23/21 at 0900, Until Discontinued, Routine, Recovery(Phase II-Outpatient)/On Unit(Inpatient) Given 01/24/2021 8:02 AM EDT 81 mg Given 01/23/2021 10:01 PM EDT 81 mg Given 01/23/2021 8:39 AM EDT 81 mg atorvastatin (Lipitor) tablet 20 mg 20 mg, Oral, Nightly, First dose on Wed01/22/21 at 2100, Until Discontinued, Routine, Recovery(Phase II-Outpatient)/On Unit(Inpatient) Given 01/23/2021 10:01 PM EDT 20 mg Given 01/22/2021 9:40 PM EDT 20 mg calcium-vitamin D 500-200 MG-UNIT per tablet 1 tablet 1 tablet, Oral, 2 times daily with meals, First dose on Wed01/22/21 at 2100, Until Discontinued, Routine, Recovery(Phase II-Outpatient)/On Unit(Inpatient) Given 01/24/2021 8:02 AM EDT 1 tablet Given 01/23/2021 5:30 PM EDT 1 tablet Given 01/23/2021 8:39 AM EDT 1 tablet ceFAZolin (Ancef) injection 2 g 2 g, Intravenous, Every 8 hours, 3 doses, First dose on Wed01/22/21 at 2100, Last dose on Wed01/23/21 at 1300, Routine, Recovery(Phase II-Outpatient)/On Unit(Inpatient) Given 01/23/2021 12:39 PM EDT 2 g Given 01/23/2021 5:46 AM EDT 2 g Given 01/22/2021 9:41 PM EDT 2 g famotidine (Pepcid) injection 20 mg 20 mg, Intravenous, Once, 1 dose, On Wed01/22/21 at 1015, Routine, Holding - Preprocedure Given 01/22/2021 12:10 PM EDT 20 mg fentaNYL (Sublimaze) injection 25 mcg 25 mcg, Intravenous, Every 5 min PRN, 2 doses, Starting on Wed01/22/21 at 1510, Until Wed01/22/21 at 1525, Routine, Recovery (Phase I only), severe pain, pain score of 3 to 4 out of 10 Given 01/22/2021 3:25 PM EDT 25 mcg Given 01/22/2021 3:20 PM EDT 25 mcg fentaNYL (Sublimaze) injection 50 mcg 50 mcg, Intravenous, Once as needed, 2 doses, Starting on Wed01/22/21 at 1510, Until Wed01/22/21 at 1804, Routine, Recovery (Phase I only), severe pain, pain score of 5 to 8 out of 10 Given 01/22/2021 3:15 PM EDT 50 mcg gabapentin (Neurontin) capsule 100 mg 100 mg, Oral, Every 8 hours, First dose on Wed01/22/21 at 1645, Until Discontinued, Routine, Recovery(Phase II-Outpatient)/On Unit(Inpatient) Given 01/23/2021 8:40 AM EDT 100 mg gabapentin (Neurontin) capsule 200 mg 200 mg, Oral, Every 8 hours, First dose (after last modification) on Anuradha 01/23/21 at 1645, Until Discontinued, Routine, Recovery(Phase II-Outpatient)/On Unit(Inpatient) Given 01/24/2021 8:02 AM EDT 200 mg Given 01/23/2021 11:59 PM EDT 200 mg Given 01/23/2021 4:19 PM EDT 200 mg HYDROmorphone (Dilaudid) injection 0.5 mg 0.5 mg, Intravenous, Every 10 min PRN, 2 doses, Starting on Wed01/22/21 at 1510, Until Wed01/22/21 at 1533, Routine, Recovery (Phase I only), severe pain, pain score of 9 to 10 out of 10 Given 01/22/2021 3:33 PM EDT 0.5 mg Given 01/22/2021 3:23 PM EDT 0.5 mg HYDROmorphone (Dilaudid) injection 0.5 mg 0.5 mg, Intravenous, Every 6 hours PRN, Starting on Wed01/22/21 at 1615, Until Wed01/24/21 at 1610, Routine, Recovery(Phase II-Outpatient)/On Unit(Inpatient), severe pain, pain score 9-10 Given 01/22/2021 6:31 PM EDT 0.5 mg HYDROmorphone (Dilaudid) injection 1 mg 1 mg, Intravenous, Once, 1 dose, On Wed01/22/21 at 1600, Routine, Recovery (Phase I only) Given 01/22/2021 3:50 PM EDT 1 mg HYDROmorphone (Dilaudid) injection 1 mg 1 mg, Intravenous, Once, 1 dose, On Wed01/22/21 at 1630, STAT, Recovery (Phase I only) Given 01/22/2021 4:17 PM EDT 1 mg hyoscyamine (Anaspaz,Levsin) tablet 0.125 mg 0.125 mg, Oral, 2 times daily, First dose on Wed01/22/21 at 2100, Until Discontinued, Routine, Recovery(Phase II-Outpatient)/On Unit(Inpatient) Given 01/24/2021 8:03 AM EDT 0.125 mg Given 01/23/2021 10:09 PM EDT 0.125 mg Given 01/23/2021 8:56 AM EDT 0.125 mg lactated Ringer's infusion 100 mL/hr, Intravenous, Once, 1 dose, On Wed01/22/21 at 1015, Routine New Bag 01/22/2021 12:09 PM EDT 100 mL/hr 100 mL/hr lactated Ringer's infusion 100 mL/hr, Intravenous, Continuous, Starting on Wed01/22/21 at 1530, Until Wed01/24/21 at 1610, Routine New Bag 01/22/2021 4:23 PM EDT 100 mL/hr 100 m L/hr Continued from OR 01/22/2021 3:30 PM EDT 100 mL/hr 100 mL /hr lactated Ringer's infusion 100 mL/hr, Intravenous, Continuous, Starting on Wed01/22/21 at 1645, Until Anuradha 01/23/21 at 1644, Routine New Bag 01/22/2021 4:45 PM EDT 100 mL/hr 100 m L/hr metoclopramide (Reglan) tablet 10 mg 10 mg, Oral, 2 times daily, First dose on Wed01/22/21 at 2100, Until Discontinued, Routine, Recovery(Phase II-Outpatient)/On Unit(Inpatient) Given 01/24/2021 8:02 AM EDT 10 mg Given 01/23/2021 10:01 PM EDT 10 mg Given 01/23/2021 8:40 AM EDT 10 mg midazolam (Versed) injection 2 mg 2 mg, Intravenous, Once, 1 dose, On Wed01/22/21 at 1730, STAT, Recovery (Phase I only) Given 01/22/2021 5:10 PM EDT 2 mg midodrine (Proamatine) tablet 10 mg 10 mg, Oral, 2 times daily, First dose on Wed01/22/21 at 2100, Until Discontinued, Routine, Recovery(Phase II-Outpatient)/On Unit(Inpatient) Given 01/24/2021 8:02 AM EDT 10 mg Given 01/23/2021 10:01 PM EDT 10 mg Given 01/23/2021 8:40 AM EDT 10 mg morphine CR (MS Contin) 12 hr tablet 30 mg 30 mg, Oral, 2 times daily, First dose on Wed01/22/21 at 2100, Until Discontinued, Routine, Recovery(Phase II-Outpatient)/On Unit(Inpatient) Given 01/24/2021 8:02 AM EDT 30 mg Given 01/23/2021 10:02 PM EDT 30 mg Given 01/23/2021 8:40 AM EDT 30 mg morphine PF 4 mg 4 mg, Intravenous, Once, 1 dose, On Wed01/22/21 at 1315, STAT, On Unit - Preprocedure Given 01/22/2021 1:09 PM EDT 4 mg oxyCODONE (Roxicodone) immediate release tablet 10 mg 10 mg, Oral, Once as needed, 1 dose, Starting on Wed01/22/21 at 1510, Until Wed01/22/21 at 1524, Routine, Recovery (Phase I only), severe pain, > 5 out of 10 Given 01/22/2021 3:24 PM EDT 10 mg oxyCODONE (Roxicodone) immediate release tablet 10 mg 10 mg, Oral, Every 4 hours PRN, Starting on Wed01/22/21 at 1617, Until Wed01/24/21 at 1610, Routine, moderate pain Given 01/24/2021 11:57 AM EDT 10 mg Given 01/23/2021 9:35 PM EDT 10 mg Given 01/23/2021 3:02 PM EDT 10 mg oxyCODONE (Roxicodone) immediate release tablet 15 mg 15 mg, Oral, Every 4 hours PRN, Starting on Wed01/22/21 at 1617, Until Wed01/24/21 at 1610, Routine, severe pain Given 01/24/2021 8:04 AM EDT 15 mg pantoprazole (ProtoNix) EC tablet 40 mg 40 mg, Oral, Daily before breakfast, First dose on Anuradha 01/23/21 at 0730, Until Discontinued, Routine, Recovery(Phase II-Outpatient)/On Unit(Inpatient) Given 01/24/2021 6:32 AM EDT 40 mg Given 01/23/2021 6:54 AM EDT 40 mg Potassium Chloride 20 MEQ/15ML (10%) solution 10 mEq 10 mEq, Oral, 2 times daily, First dose on Anuradha 01/23/21 at 2300, Until Discontinued, Routine Given 01/24/2021 8:03 AM EDT 10 mEq Given 01/23/2021 11:54 PM EDT 10 mEq potassium chloride CR (Klor-Con) ER tablet 10 mEq 10 mEq, Oral, 2 times daily, First dose on Wed01/22/21 at 2100, Until Discontinued, Routine, Recovery(Phase II-Outpatient)/On Unit(Inpatient) Given 01/23/2021 8:39 AM EDT 10 mEq Povidone-Iodine 5 % swab solution 1 Swab Nasal, Daily, 5 doses, First dose on Anuradha 01/23/21 at 0900, Last dose on Wed01/27/21 at 0900, Routine Given 01/23/2021 8:41 AM EDT 1 Swab. promethazine (Phenergan) tablet 25 mg 25 mg, Oral, Every 6 hours PRN, Starting on Wed01/22/21 at 1615, Until Wed01/24/21 at 1610, Routine, Recovery(Phase II-Outpatient)/On Unit(Inpatient), nausea, vomiting Given 01/22/2021 6:45 PM EDT 25 mg scopolamine (Transderm-Scop) patch 1 patch 1 patch, Transdermal, Once, 1 dose, On Wed01/22/21 at 1015, Routine, Holding - Preprocedure Medication Applied 01/22/2021 12:10 PM EDT 1 patch Behind Left Ear senna-docusate (Carmen-Colace) 8.6-50 MG per tablet 2 tablet 2 tablet, Oral, Nightly, First dose on Wed01/22/21 at 2100, Until Discontinued, Routine, Recovery(Phase II-Outpatient)/On Unit(Inpatient) Given 01/23/2021 10:01 PM EDT 2 tablets Given 01/22/2021 9:40 PM EDT 2 tablets topiramate (Topamax) tablet 50 mg 50 mg, Oral, 2 times daily, First dose on Wed01/22/21 at 2100, Until Discontinued, Routine, Recovery(Phase II-Outpatient)/On Unit(Inpatient) Given 01/24/2021 8:02 AM EDT 50 mg Given 01/23/2021 10:01 PM EDT 50 mg Given 01/23/2021 8:39 AM EDT 50 mg traZODone (Desyrel) tablet 50 mg 50 mg, Oral, Nightly, First dose on Wed01/22/21 at 2100, Until Discontinued, Routine, Recovery(Phase II-Outpatient)/On Unit(Inpatient) Given 01/23/2021 10:01 PM EDT 50 mg Given 01/22/2021 9:43 PM EDT 50 mg documented in this encounter Active and Recently Administered Medications Times are shown in EDT. Scheduled Medication Order 01/22/2021 01/23/2021 01/24/2021 acetaminophen (Tylenol) tablet 1,000 mg 1,000 mg, Oral, Every 8 hours scheduled, First dose on Wed01/22/21 at 1645, Until Discontinued, Routine, Recovery(Phase II-Outpatient)/On Unit(Inpatient) 1645 (Not Given - Provider: Mike Mccrary RN - Reason: Patient in procedure)2140 (Given - Provider: Amando Jackson RN) 0546 (Given - Provider: Amando Jackson RN)1415 (Given - Provider: Krupa Graves RN)220 (Given - Provider: Amando Jackson RN) 0628 (Given - Provider: Amando Jackson RN)1400 (Canceled Entry - Provider: Automatic Discharge Provider - Comment: Automatically canceled at discontinue of medication order) aspirin chewable tablet 81 mg 81 mg, Oral, 2 times daily, First dose on Wed01/23/21 at 0900, Until Discontinued, Routine, Recovery(Phase II-Outpatient)/On Unit(Inpatient) 0839 (Given - Provider: Krupa Graves RN)220 (Given - Provider: Amando Jackson RN) 0802 (Given - Provider: Stella Baig RN) atorvastatin (Lipitor) tablet 20 mg 20 mg, Oral, Nightly, First dose on Wed01/22/21 at 2100, Until Discontinued, Routine, Recovery(Phase II-Outpatient)/On Unit(Inpatient) 214 (Given - Provider: Amando Jackson RN) 2200 (Given - Provider: Amando Jackson RN) calcium-vitamin D 500-200 MG-UNIT per tablet 1 tablet 1 tablet, Oral, 2 times daily with meals, First dose on Wed01/22/21 at 2100, Until Discontinued, Routine, Recovery(Phase II-Outpatient)/On Unit(Inpatient) 214 (Given - Provider: Amando Jackson, LISBETH) 0839 (Given - Provider: Krupa Graves RN)1730 (Given - Provider: Krupa Graves RN) 0802 (Given - Provider: Stella Baig RN) ceFAZolin (Ancef) injection 2 g (COMPLETED) 2 g, Intravenous, Once, 1 dose, On Wed01/22/21 at 1015, Routine, Holding - Preprocedure 1404 (Given - Provider: Elvis De La Paz CRNA) ceFAZolin (Ancef) injection 2 g (COMPLETED) 2 g, Intravenous, Every 8 hours, 3 doses, First dose on Wed01/22/21 at 2100, Last dose on Wed01/23/21 at 1300, Routine, Recovery(Phase II-Outpatient)/On Unit(Inpatient) 2140 (Given - Provider: Amando Jackson, LISBETH) 0546 (Given - Provider: Amando Jackson RN)1239 (Given - Provider: Krupa Graves RN) famotidine (Pepcid) injection 20 mg (COMPLETED) 20 mg, Intravenous, Once, 1 dose, On Wed01/22/21 at 1015, Routine, Holding - Preprocedure 1210 (Given - Provider: Pao Zavaleta RN) gabapentin (Neurontin) capsule 100 mg (CANCELED) 100 mg, Oral, Every 8 hours, First dose on Wed01/22/21 at 1645, Until Discontinued, Routine, Recovery(Phase II-Outpatient)/On Unit(Inpatient) 1645 (Not Given - Provider: Mike Mccrary RN - Reason: Patient in procedure) 0045 (Return to [facility] - Provider: Amando Jackson RN)0840 (Given - Provider: Krupa Graves, LISBETH) gabapentin (Neurontin) capsule 200 mg 200 mg, Oral, Every 8 hours, First dose (after last modification) on Wed01/23/21 at 1645, Until Discontinued, Routine, Recovery(Phase II-Outpatient)/On Unit(Inpatient) 1619 (Given - Provider: Krupa Graves RN)2359 (Given - Provider: Amando Jackson RN) 0802 (Given - Provider: Stella Baig RN) HYDROmorphone (Dilaudid) injection 1 mg (COMPLETED) 1 mg, Intravenous, Once, 1 dose, On Wed01/22/21 at 1600, Routine, Recovery (Phase I only) 1550 (Given - Provider: Barb Gardner RN) HYDROmorphone (Dilaudid) injection 1 mg (COMPLETED) 1 mg, Intravenous, Once, 1 dose, On Wed01/22/21 at 1630, STAT, Recovery (Phase I only) 1617 (Given - Provider: Barb Gardner, LISBETH) hyoscyamine (Anaspaz,Levsin) tablet 0.125 mg 0.125 mg, Oral, 2 times daily, First dose on Wed01/22/21 at 2100, Until Discontinued, Routine, Recovery(Phase II-Outpatient)/On Unit(Inpatient) 214 (Given - Provider: Amando Jackson RN) 0856 (Given - Provider: Krupa Graves, LISBETH)220 (Given - Provider: Amando Jackson, LISBETH) 0803 (Given - Provider: Stella Baig RN) lactated Ringer's infusion (COMPLETED) 100 mL/hr, Intravenous, Once, 1 dose, On Wed01/22/21 at 1015, Routine 1209 (New Bag - Provider: Pao Zavaleta, LISBETH) metoclopramide (Reglan) tablet 10 mg 10 mg, Oral, 2 times daily, First dose on Wed01/22/21 at 2100, Until Discontinued, Routine, Recovery(Phase II-Outpatient)/On Unit(Inpatient) 214 (Given - Provider: Amando Jackson RN) 0840 (Given - Provider: Krupa Graves, LISBETH)220 (Given - Provider: Amando Jackson, LISBETH) 0802 (Given - Provider: Stella Baig, LISBETH) midazolam (Versed) injection 2 mg (COMPLETED) 2 mg, Intravenous, Once, 1 dose, On Wed01/22/21 at 1730, STAT, Recovery (Phase I only) 1710 (Given - Provider: Barb Gardner, LISBETH) midodrine (Proamatine) tablet 10 mg 10 mg, Oral, 2 times daily, First dose on Wed01/22/21 at 2100, Until Discontinued, Routine, Recovery(Phase II-Outpatient)/On Unit(Inpatient) 214 (Given - Provider: Amando Jackson RN) 0840 (Given - Provider: Krupa Graves, RN)2200 (Given - Provider: Amando Jackson RN) 0802 (Given - Provider: Stella Baig, RN) morphine CR (MS Contin) 12 hr tablet 30 mg 30 mg, Oral, 2 times daily, First dose on Wed01/22/21 at 2100, Until Discontinued, Routine, Recovery(Phase II-Outpatient)/On Unit(Inpatient) 214 (Given - Provider: Amando Jackson RN) 0840 (Given - Provider: Krupa Graves, RN)2201 (Given - Provider: Amando Jackson, LISBETH) 08 (Given - Provider: Stella Baig, RN) morphine PF 4 mg (COMPLETED) 4 mg, Intravenous, Once, 1 dose, On Wed01/22/21 at 1315, STAT, On Unit - Preprocedure 1309 (Given - Provider: Pao Zavaleta RN) pantoprazole (ProtoNix) EC tablet 40 mg 40 mg, Oral, Daily before breakfast, First dose on Wed01/23/21 at 0730, Until Discontinued, Routine, Recovery(Phase II-Outpatient)/On Unit(Inpatient) 0654 (Given - Provider: Amando Jackson RN) 0632 (Given - Provider: Amando Jackson RN) polyethylene glycol (Miralax) packet 17 g 17 g, Oral, Daily, First dose on Wed01/22/21 at 1645, Until Discontinued, Routine, Recovery(Phase II-Outpatient)/On Unit(Inpatient) 1645 (Not Given - Provider: Mike Mccrary RN - Reason: Patient in procedure) 0900 (Not Given - Provider: Krupa Graves, RN - Reason: Patient/family refused) 0900 (Not Given - Provider: Stella Baig, LISBETH - Reason: Patient/family refused) Potassium Chloride 20 MEQ/15ML (10%) solution 10 mEq 10 mEq, Oral, 2 times daily, First dose on Anuradha 01/23/21 at 2300, Until Discontinued, Routine 2354 (Given - Provider: Amando Jackson RN) 0803 (Given - Provider: Stella Baig, RN) potassium chloride CR (Klor-Con) ER tablet 10 mEq (CANCELED) 10 mEq, Oral, 2 times daily, First dose on Wed01/22/21 at 2100, Until Discontinued, Routine, Recovery(Phase II-Outpatient)/On Unit(Inpatient) 2139 (Not Given - Provider: Amando Jackson RN - Reason: Patient/family refused - Comment: pt states she takes casule, cannot take tablet. It breaks out her mouth) 08 (Given - Provider: Krupa Graves, RN)2201 (Return to [facility] - Provider: Amando Jackson RN) Povidone-Iodine 5 % swab solution 1 Swab Nasal, Daily, 5 doses, First dose on Anuradha 01/23/21 at 0900, Last dose on Wed01/27/21 at 0900, Routine 0841 (Given - Provider: Krupa Graves, LISBETH) 0900 (Not Given - Provider: Stella Baig RN - Reason: Patient/family refused) scopolamine (Transderm-Scop) patch 1 patch 1 patch, Transdermal, Once, 1 dose, On Wed01/22/21 at 1015, Routine, Holding - Preprocedure 1210 (Medication Applied - Provider: Pao Zavaleta RN) 1409 (Due: Medication Removed - Provider: Automatic Discharge Provider - Comment: Time automatically adjusted from order being discontinued) senna-docusate (Carmen-Colace) 8.6-50 MG per tablet 2 tablet 2 tablet, Oral, Nightly, First dose on Wed01/22/21 at 2100, Until Discontinued, Routine, Recovery(Phase II-Outpatient)/On Unit(Inpatient) 2139 (Given - Provider: Amando Jackson RN) 2200 (Given - Provider: Amando Jackson RN) topiramate (Topamax) tablet 50 mg 50 mg, Oral, 2 times daily, First dose on Wed01/22/21 at 2100, Until Discontinued, Routine, Recovery(Phase II-Outpatient)/On Unit(Inpatient) 2140 (Given - Provider: Amando Jackson RN) 08 (Given - Provider: Krupa Graves, LISBETH)2200 (Given - Provider: Amando Jackson RN) 08 (Given - Provider: Stella Baig, LISBETH) traZODone (Desyrel) tablet 50 mg 50 mg, Oral, Nightly, First dose on Wed01/22/21 at 2100, Until Discontinued, Routine, Recovery(Phase II-Outpatient)/On Unit(Inpatient) 2143 (Given - Provider: Amando Jackson RN) 2201 (Given - Provider: Amando Jackson RN) Continuous Medication Order 01/22/2021 01/23/2021 01/24/2021 lactated Ringer's infusion 100 mL/hr, Intravenous, Continuous, Starting on Wed01/22/21 at 1530, Until Wed01/24/21 at 1610, Routine 1530 (Continued from OR - Provider: Barb Gardner RN)1623 (New Bag - Provider: Barb Gardner RN) lactated Ringer's infusion () 100 mL/hr, Intravenous, Continuous, Starting on Wed01/22/21 at 1645, Until Anuradha 01/23/21 at 1644, Routine 1645 (New Bag - Provider: Mike Mccrary RN) PRN Medication Order 01/22/2021 01/23/2021 01/24/2021 bethanechol (Urecholine) tablet 20 mg 20 mg, Oral, Once as needed, 1 dose, Starting on Wed01/22/21 at 1615, Until Wed01/24/21 at 1610, Routine, Recovery(Phase II-Outpatient)/On Unit(Inpatient), bladder spasms, urinary retention > 6 hours bisacodyl (Dulcolax) suppository 10 mg 10 mg, Rectal, 2 times daily PRN, Starting on Wed01/22/21 at 1615, Until Wed01/24/21 at 1610, Routine, Recovery(Phase II-Outpatient)/On Unit(Inpatient), constipation, for constipation - use if no bowel movement after giving magnesium hydroxide diphenhydrAMINE (BENADryl) tablet 12.5 mg 12.5 mg, Oral, Every 4 hours PRN, Starting on Wed01/22/21 at 1615, Until Wed01/24/21 at 1610, Routine, Recovery(Phase II-Outpatient)/On Unit(Inpatient), itching, sleep diphenhydrAMINE (BENADryl) tablet 25 mg 25 mg, Oral, Every 4 hours PRN, Starting on Wed01/22/21 at 1615, Until Wed01/24/21 at 1610, Routine, Recovery(Phase II-Outpatient)/On Unit(Inpatient), itching, sleep fentaNYL (Sublimaze) injection 25 mcg (COMPLETED) 25 mcg, Intravenous, Every 5 min PRN, 2 doses, Starting on Wed01/22/21 at 1510, Until Wed01/22/21 at 1525, Routine, Recovery (Phase I only), severe pain, pain score of 3 to 4 out of 10 1520 (Given - Provider: Barb Gardner RN)1525 (Given - Provider: Barb Gardner RN) fentaNYL (Sublimaze) injection 50 mcg (CANCELED) 50 mcg, Intravenous, Once as needed, 2 doses, Starting on Wed01/22/21 at 1510, Until Wed01/22/21 at 1804, Routine, Recovery (Phase I only), severe pain, pain score of 5 to 8 out of 10 1515 (Given - Provider: Barb Gardner RN)1530 (Not Given - Provider: Barb Gardner RN - Reason: Other - Comment: trying to link the order with the override dose) HYDROmorphone (Dilaudid) injection 0.5 mg (COMPLETED) 0.5 mg, Intravenous, Every 10 min PRN, 2 doses, Starting on Wed01/22/21 at 1510, Until Wed01/22/21 at 1533, Routine, Recovery (Phase I only), severe pain, pain score of 9 to 10 out of 10 1523 (Given - Provider: Barb Gardner RN)1533 (Given - Provider: Barb Gardner RN) HYDROmorphone (Dilaudid) injection 0.5 mg 0.5 mg, Intravenous, Every 6 hours PRN, Starting on Wed01/22/21 at 1615, Until Wed01/24/21 at 1610, Routine, Recovery(Phase II-Outpatient)/On Unit(Inpatient), severe pain, pain score 9-10 1831 (Given - Provider: Mike Mccrary RN) magnesium hydroxide (Milk of Magnesia) 2400 MG/10ML suspension 10 mL 10 mL, Oral, 2 times daily PRN, Starting on Wed01/22/21 at 1615, Until Wed01/24/21 at 1610, Routine, Recovery(Phase II-Outpatient)/On Unit(Inpatient), constipation, for constipation - use as first line agent ondansetron (Zofran) injection 4 mg 4 mg, Intravenous, Every 6 hours PRN, Starting on Wed01/22/21 at 1615, Until Wed01/24/21 at 1610, Routine, Recovery(Phase II-Outpatient)/On Unit(Inpatient), nausea, vomiting oxyCODONE (Roxicodone) immediate release tablet 10 mg (COMPLETED)(Linked Group 1) 10 mg, Oral, Once as needed, 1 dose, Starting on Wed01/22/21 at 1510, Until Wed01/22/21 at 1524, Routine, Recovery (Phase I only), severe pain, > 5 out of 10 1524 (Given - Provider: Barb Gardner RN) oxyCODONE (Roxicodone) immediate release tablet 10 mg(Linked Group 2) 10 mg, Oral, Every 4 hours PRN, Starting on Wed01/22/21 at 1617, Until Wed01/24/21 at 1610, Routine, moderate pain 1941 (Given - Provider: Amando Jackson RN) 0037 (Return to [facility] - Provider: Amando Jackson RN)1001 (Given - Provider: Chari Porter RN)1502 (Given - Provider: Krupa Graves RN)2135 (Given - Provider: Yesy Allen RN) 0804 (See Alternative - Provider: Stella Baig RN)1157 (Given - Provider: Stella Baig RN) oxyCODONE (Roxicodone) immediate release tablet 15 mg(Linked Group 2) 15 mg, Oral, Every 4 hours PRN, Starting on Wed01/22/21 at 1617, Until Wed01/24/21 at 1610, Routine, severe pain 1941 (See Alternative - Provider: Amando Jackson RN) 0037 (See Alternative - Provider: Amando Jackson RN)1001 (See Alternative - Provider: Chari Porter RN)1502 (See Alternative - Provider: Krupa Graves RN)2135 (See Alternative - Provider: Yesy Allen RN) 0804 (Given - Provider: Stella N Baig, RN)1157 (See Alternative - Provider: Stella Baig RN) promethazine (Phenergan) tablet 25 mg 25 mg, Oral, Every 6 hours PRN, Starting on Wed01/22/21 at 1615, Until Wed01/24/21 at 1610, Routine, Recovery(Phase II-Outpatient)/On Unit(Inpatient), nausea, vomiting 1845 (Given - Provider: Mike Mccrary RN) 0745 (Not Given - Provider: Krupa Graves RN - Reason: Patient/family refused) traMADol (Ultram) tablet 50 mg 50 mg, Oral, Every 6 hours PRN, Starting on Wed01/22/21 at 1615, Until Wed01/24/21 at 1610, Routine, Recovery(Phase II-Outpatient)/On Unit(Inpatient), moderate pain, pain score 3-5. use prior to oxycodone or hydromorphone Linked Groups Order Group 1: oxyCODONE (Roxicodone) immediate release tablet 5 mg (COMPLETED) 5 mg, Oral, Once as needed, 1 dose, Starting on Wed01/22/21 at 1510, Until Wed01/22/21 at 1524, Routine, Recovery (Phase I only), moderate pain, > 2 out of 10 Or oxyCODONE (Roxicodone) immediate release tablet 10 mg (COMPLETED)Jump to med 10 mg, Oral, Once as needed, 1 dose, Starting on Wed01/22/21 at 1510, Until Wed01/22/21 at 1524, Routine, Recovery (Phase I only), severe pain, > 5 out of 10 Group 2: oxyCODONE (Roxicodone) immediate release tablet 10 mgJump to med 10 mg, Oral, Every 4 hours PRN, Starting on Wed01/22/21 at 1617, Until Wed01/24/21 at 1610, Routine, moderate pain Or oxyCODONE (Roxicodone) immediate release tablet 15 mgJump to med 15 mg, Oral, Every 4 hours PRN, Starting on Wed01/22/21 at 1617, Until Wed01/24/21 at 1610, Routine, severe pain documented in this encounter Additional Health Concerns Infection Onset Date Last Indicated Resolved Time MRSA Comment:MRSA (methicillin resistant Staphylococcus aureus) 04/17/2020 05/21/2022 Assessment Noted Time A fall risk assessment has been complete d for the patient 12/24/2020 11:07 AM EDT documented as of this encounter Care Teams Network Consultant Relationship Specialty Start Date End Date Blu Birmingham MD [address] [place] [id number] PCP - General 08/16/20 03/11/21 documented as of this encounter
--- OUTSIDE RECORDS SUMMARY | 2024-03-11 09:27 | XMS_ITS | Encounter Summary ---
Author Organization [facility] Address [address] [place] [address] Care Team Providers Care Integrated Circuit Design Engineer Name Role Phone Blu Birmingham MD Primary Care Provider [phone] Encounter Details Date Type Department Care Team (Latest Contact Info) Description 01/21/2021 Travel Social History Tobacco Use Types Packs/Day [...] have Coronavirus / COVID-19? No / Unsure 01/21/2021 12:15 PM EDT documented as of this encounter [...] documented as of this encounter Care Teams Integrated Circuit Design Engineer Relationship Specialty Start Date End Date Blu Birmingham MD [address] [place] [id number] PCP - General 08/16/20 03/11/21 documented as of this encounter
--- OUTSIDE RECORDS SUMMARY | 2024-03-11 09:27 | XMS_ITS | Encounter Summary ---
Author Organization [facility] Address [address] [place] [address] Care Team Providers Care Plant Wire Chief Name Role Phone Blu Birmingham MD Primary Care Provider [phone] Juan José Kendall MD Primary Care Provider [phone] Encounter Details Date Type Department Care Team ([facility] st Contact Info) Description 01/01/2021 Telephone Medical Office Building [facility] [address], [address] [place] [address] Edi Robles MD [address] [place] [address] Social History Tobacco Use Types [...] Telephone Encounter - Loly Artis RN - 01/01/2021 11:02 AM EDT Spoke to Shirley with [facility], all questions answered * Telephone Encounter - Sumeet Kristen Hernandez - 01/01/2021 10:37 AM EDT Patient Phone Message Reason for Call: [facility] Best contact number and optimal time of day to reach caller:[phone] Note: Please do not reply to this message. Follow-up communication and further actions as a result of this message need to be communicated with the patient directly, if the patient is not active onMyChart. If the patient is active on MyChart, they will receive notification of the communication/outcome via [facility] [facility]. documented in this encounter Plan of Treatment [...] documented as of this encounter Care Teams Plant Wire Chief Relationship Specialty Start Date End Date Blu Birmingham MD [address] [place] [id number] PCP - General 08/16/20 03/11/21 Juan José Kendall MD [address] [place] [id number] PCP - General 03/12/21 documented as of this encounter
--- OUTSIDE RECORDS SUMMARY | 2024-03-11 09:27 | XMS_ITS | Encounter Summary ---
Author Organization [facility] Address [address] [place] [address] Care Team Providers Care Compliance Aide Name Role Phone Blu Birmingham MD Primary Care Provider [phone] Encounter Details Date Type Department Care Team (Latest Contact Info) Description 02/11/2021 Travel Social History Tobacco Use Types Packs/Day [...] documented as of this encounter Care Teams Compliance Aide Relationship Specialty Start Date End Date Blu Birmingham MD [address] [place] [id number] PCP - General 08/16/20 03/11/21 documented as of this encounter
--- OUTSIDE RECORDS SUMMARY | 2024-03-11 09:27 | XMS_ITS | Encounter Summary ---
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] Procedures FL AMPUTATE THIGH,THRU FEMUR ABOVE KNEE RIGHT AMPUTATION, LOWER EXTREMITY Edi Robles MD [address] [facility] [address] [place] [address] Phone: tel: fax: [facility] S Operating Room [address] [place] [address] Phone: tel: Referral ID Status Reason Start Date Expiration Date Visits Re quested Visits Authorized [id number] 1 1 Encounter Details Date Type Department Care Team (Late st Contact Info) Description 01/22/2021 1:49 PM EDT Anesthesia Event [facility] S Operating Room [address] [place] [address] Ernesto Hicks MD [address] [place] [address] Jesse Donnelly MD [address] [place] [address] Anesthesia Record Procedure Summary Procedure Name Responsible Anesthesiologist Anesthesia Start Time Anesthesia Stop Time Amputation, Lower Extremity (Right) Ernesto Hicks MD 01/22/21 1349 01/22/21 1503 Events Date Time Event Comment 01/22/2021 1349 An Start 1352 In Room 1353 An Start Data 1357 An Induction The patient was reevaluated immediately before moderate or deep sedation use and before anesthesia induction. 1358 An Intubation 1401 Anesthesia Ready 1414 Proc Start 1454 An Extubation 1457 an stop data 1458 Proc Fin 1458 Out of Room 1503 Handoff to Receiving I compl eted my handoff to the receiving clinician during which we: 1. Identified the patient 2. Identified the responsible provider 3. Reviewed the pertinent medical history 4. Discussed the surgical course 5. Reviewed intra-op anesthesia management and issues during anesthesia 6. Set expectations for post-procedure period 7. Allowed opportunity for questions and acknowledgement of understanding. 1503 An Stop Meds Name Total propofol (Diprivan) injection 10 mg/mL 1 20 mg succinylcholine (Anectine) injection 20 mg/mL 120 mg fentaNYL (Sublimaze) injection 50 mcg/mL 75 mcg midazolam (Versed) injection 1 mg/mL 2 m g lidocaine PF (Xylocaine-MPF) 2% 100 mg ondansetron (Zofran) injection 2 mg/mL 4 mg dexamethasone (Decadron) injection 4 mg/ mL 8 mg ceFAZolin (Ancef) injection 2 g 2 g esmolol (Brevibloc) injection 10 mg/mL 3 0 mg phenylephrine (Marquis-Synephrine) prefilled syringe 1 mg/10 mL 200 mcg ketorolac (Toradol) injection 30 mg/mL 3 0 mg lactated Ringer's infusion 700 mL * Agents Name O2 N2O Air Sevoflurane Inspired Sevoflurane N2O Inspired N2O * Blood No blood administrations on file. Lines, Drains, and Airways Type Details Placement Removal PICC Single Lumen Orientation: Right; Removal Date: 01/24/21; Removal Time: 1036 01/22/21 1159 by 01/24/21 1036 by Bethany Crump RN ETT Placement Date: 01/22/21; Placement Time: 1358 (created via procedure documentation); Mask Ventilation: 0; Technique: Direct laryngoscopy; Type: ETT - single; Single Lumen Tube Size: 7 mm; Cuffed: Yes; Laryngoscope: Marie; Blade Size: 2; Location: Oral; Grade View: Grade I; Insertion Attempts: 1; Placement Verification: Auscultation, Capnometry; Placed by: [email or web address]; Removal Date: 01/22/21; Removal Time: 1454 01/22/21 1358 by Elvis De La Paz CRNA 01/22/21 1454 by Elvis De La Paz CRNA Wound 01/22/21; 1418; Othe r (surgical); Leg; Anterior, Proximal, Right, Upper; 03/12/21; 1507 01/22/21 1418 by Irma Kemp RN 03/12/21 1507 by Celia Peguero RN documented in this encounter Social History [...] Miscellaneous Notes * Anesthesia Postprocedure Evaluation - Elvis De La Paz CRNA - 01/22/2021 3:03 PM EDT Patient: Trudi Blair Anesthesia Type: general Vitals Value Taken Time BP 130/80 01/22/21 1503 Temp 98.7 01/22/21 1503 Pulse 86 01/22/21 1503 Resp 11 01/22/21 1503 SpO2 100 01/22/21 1503 Anesthesia Post Evaluation Patient location during evaluation: PACU Patient participation: complete - patient cannot participate Level of consciousness: sedated Airway patency: natural airway Cardiovascular status: acceptable Respiratory status: acceptable and oral airway Hydration status: acceptable No complications documented. * Anesthesia Procedure Notes - Elvis De La Paz CRNA - 01/22/2021 2:03 PM EDT Associated Order(s): Airway Airway Date/Time: 01/22/2021 1:58 PM Urgency: elective Airway not difficult General Information and Staff Patient location during procedure: OR CLIENT HR MANAGER: Elvis De La Paz CRNA Performed: CLIENT HR MANAGER Indications and Patient Condition Indications for airway management: anesthesia Preoxygenated: yes Patient position: sniffing MILS maintained throughout Mask difficulty assessment: 0 - not attempted Final Airway Details Final airway type: endotracheal airway Successful airway: ETT Cuffed: yes Successful intubation technique: direct laryngoscopy Facilitating devices/methods: intubating stylet Endotracheal tube insertion site: oral Blade: Marie Blade size: #2 ETT size (mm): 7.0 Cormack-Lehane Classification: grade I - full view of glottis Placement verified by: chest auscultation and capnometry Measured from: lips ETT to lips (cm): 21 Number of attempts at approach: 1 * Anesthesia Preprocedure Evaluation - Ernesto Hicks - 01/22/2021 10:32 AM EDT Patient: Trudi Blair Procedure Information Date/Time: 01/22/21 1215 Procedure: ABOVE KNEE RIGHT AMPUTATION, LOWER EXTREMITY (Right Knee) Location: [address] [place] [address] OR Surgeons: Edi Robles MD Relevant Problems Cardio (+) Primary hypertension GI [...] elevate bp ??? Joint pain ??? Osteoarthritis No current facility-administered medications on file prior to encounter. Current Outpatient Medications on File Prior to Encounter Medication Sig Dispense Refill ??? atorvastatin (Lipitor) 20 MG tablet Take 20 mg by mouth every night. ??? hyoscyamine (Anaspaz,Levsin) 0.125 MG tablet Take 0.125 mg by mouth 2 (two) times a day. ??? metoclopramide (Reglan) 10 MG tablet Take 10 mg by mouth 2 (two) times a day. ??? midodrine (Proamatine) 10 MG tablet Take 10 mg by mouth 2 (two) times a day. ??? morphine CR (MS Contin) 15 MG 12 hr tablet Take 30 mg by mouth 2 (two) times a day. 2 tablets twice daily ??? pantoprazole (ProtoNix) 40 MG EC tablet Take 40 mg by mouth 1 (one) time each day before breakfast. ??? polyethylene glycol (Miralax) 17 g packet Take 17 g by mouth 1 (one) time each day. ??? potassium chloride ER (Micro-K) 10 MEQ ER capsule Take 10 mEq by mouth 2 (two) times a day. ??? promethazine (Phenergan) 25 MG tablet Take 25 mg by mouth every 6 (six) hours if needed for nausea or vomiting. ??? topiramate 50 MG tablet Take 50 mg by mouth 2 (two) times a day. ??? traZODone (Desyrel) 50 MG tablet Take 50 mg by mouth every night. ??? [DISCONTINUED] mirtazapine (Remeron) 15 MG tablet Take 15 mg by mouth every night. ??? [DISCONTINUED] metoprolol tartrate (Lopressor) 50 MG tablet Take 50 mg by mouth 1 (one) time each day. (Patient not taking: Reported on 01/20/2021) ??? [DISCONTINUED] oxybutynin (Ditropan) 5 MG tablet Take 5 mg by mouth 2 (two) times a day. (Patient not taking: Reported on 01/20/2021) ??? [DISCONTINUED] vancomycin in NS (Vancocin) IVPB Infuse 750 mg into a venous catheter 1 (one) time each day at the same time. (Patient not taking: Reported on 01/20/2021) Clinical information reviewed: Med Hx Tobacco Allergies Surg Hx Fam Hx Soc Hx NPO Status Date of Last Liquid: 01/21/21 Date of Last Solid: 01/21/21 Time of Last Void: 5041 Physical Exam Airway Mallampati: II Cardiovascular - normal exam Dental - normal exam Pulmonary - normal exam Neurological Skin Musculoskeletal Extremities Anesthesia Plan ASA 3 Anesthesia technique(s) discussed with the patient/family: General Anesthesia plan agreed upon was: general Post operative pain planned: discuss with surgical team Induction planned: intravenous Airway management planned: general endotracheal Premedication planned: none Anesthetic plan and risks discussed with patient. Plan discussed with CLIENT HR MANAGER. Additional Equipment Requests documented in this encounter Plan of Treatment Not on file documented as of this encounter Procedures Procedure Name Priority Date/Time Associated Diagnosis Comments PB ANESTHESIA PLACEHOLDER Routine 01/22/2021 1:58 PM EDT FL AN ELECTIVE ENDOTRACHEAL AIRWAY Routine 01/22/2021 1:58 PM EDT documented in this encounter Results * FL AN ELECTIVE ENDOTRACHEAL AIRWAY, PB ANESTHESIA PLACEHOLDER (01/22/2021 1:58 PM EDT) Narrative Elvis De La Paz CRNA - 01/22/2021 1:58 PM EDT Elvis De La Paz CRNA ? 01/22/2021 ??2:03 PM Airway Date/Time: 01/22/2021 1:58 PM Urgency: elective Airway not difficult General Information and Staff Patient location during procedure: OR CLIENT HR MANAGER: Elvis De La Paz CRNA Performed: CLIENT HR MANAGER Indications and Patient Condition Indications for airway management: anesthesia Preoxygenated: yes Patient position: sniffing MILS maintained throughout Mask difficulty assessment: 0 - not attempted Final Airway Details Final airway type: endotracheal airway Successful airway: ETT Cuffed: yes Successful intubation technique: direct laryngoscopy Facilitating devices/methods: intubating stylet Endotracheal tube insertion site: oral Blade: Marie Blade size: #2 ETT size (mm): 7.0 Cormack-Lehane Classification: grade I - full view of glottis Placement verified by: chest auscultation and capnometry Measured from: lips ETT to lips (cm): 21 Number of attempts at approach: 1 us Ernesto Hicks MD ANESTHESIA ORDERABLES Final Result documented in this encounter Visit Diagnoses Not on filedocumented in this encounter Administered Medications Inactive Administered Medications - up to 3 most recent administrations Medication Order MAR Action Action Date Dose Rate Site ceFAZolin (Ancef) injection 2 g 2 g, Intravenous, Once, 1 dose, On Wed01/22/21 at 1015, Routine, Holding - Preprocedure Given 01/22/2021 2:04 PM EDT 2 g dexamethasone (Decadron) injection Intravenous, As needed, Starting on Wed01/22/21 at 1413, Until Wed01/22/21 at 1503, Routine, Anesthesia Intraprocedure Given 01/22/2021 2:13 PM EDT 8 mg esmolol (Brevibloc) injection Intravenous, As needed, Starting on Wed01/22/21 at 1417, Until Wed01/22/21 at 1503, Routine, Anesthesia Intraprocedure Given 01/22/2021 2:17 PM EDT 30 mg fentaNYL (Sublimaze) injection Intravenous, As needed, Starting on Wed01/22/21 at 1357, Until Wed01/22/21 at 1503, Routine, Anesthesia Intraprocedure Given 01/22/2021 1:57 PM EDT 75 mcg ketorolac (Toradol) injection Intravenous, As needed, Starting on Wed01/22/21 at 1451, Until Wed01/22/21 at 1503, Routine, Anesthesia Intraprocedure Given 01/22/2021 2:51 PM EDT 30 mg lactated Ringer's infusion Intravenous, Continuous PRN, Starting on Wed01/22/21 at 1348, Until Wed01/22/21 at 1503, Routine New Bag 01/22/2021 1:48 PM EDT lidocaine PF (Xylocaine) 2 % injection Intravenous, As needed, Starting on Wed01/22/21 at 1357, Until Wed01/22/21 at 1503, Routine, Anesthesia Intraprocedure Given 01/22/2021 1:57 PM EDT 100 mg midazolam (Versed) injection Intravenous, As needed, Starting on Wed01/22/21 at 1350, Until Wed01/22/21 at 1503, Routine, Anesthesia Intraprocedure Given 01/22/2021 1:50 PM EDT 2 mg ondansetron (Zofran) injection Intravenous, As needed, Starting on Wed01/22/21 at 1447, Until Wed01/22/21 at 1503, Routine, Anesthesia Intraprocedure Given 01/22/2021 2:47 PM EDT 4 mg phenylephrine in NS (Marquis-Synephrine) 100 mcg/mL prefilled syringe Intravenous, As needed, Starting on Wed01/22/21 at 1436, Until Wed01/22/21 at 1503, Routine, Anesthesia Intraprocedure Given 01/22/2021 2:41 PM EDT 100 mcg Given 01/22/2021 2:38 PM EDT 100 mcg propofol (Diprivan) injection Intravenous, As needed, Starting on Wed01/22/21 at 1357, Until Wed01/22/21 at 1503, Routine, Anesthesia Intraprocedure Given 01/22/2021 1:57 PM EDT 120 mg succinylcholine (Anectine) injection Intravenous, As needed, Starting on Wed01/22/21 at 1357, Until Wed01/22/21 at 1503, Routine, Anesthesia Intraprocedure Given 01/22/2021 1:57 PM EDT 120 mg documented in this encounter Additional Health Concerns Infection Onset Date Last Indicated Resolved Time MRSA Comment:MRSA (methicillin resistant Staphylococcus aureus) 04/17/2020 05/21/2022 Assessment Noted Time A fall risk assessment has been complete d for the patient 12/24/2020 11:07 AM EDT documented as of this encounter Care Teams Title Clerk Automobile Relationship Specialty Start Date End Date Blu Birmingham MD [address] [place] [address] [place] [id number] PCP - General 08/16/20 03/11/21 documented as of this encounter
--- OUTSIDE RECORDS SUMMARY | 2024-03-11 09:27 | XMS_ITS | Encounter Summary ---
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] Procedures TX AMPUTATE THIGH,THRU FEMUR ABOVE KNEE RIGHT AMPUTATION, LOWER EXTREMITY Edi Arango MD [address] [place] [phone] Phone: tel: fax: [facility] S Operating Room [address] [place] [address] Phone: tel: Referral ID Status Reason Start Date Expiration Date Visits Re quested Visits Authorized [id number] 1 1 Encounter Details Date Type Department Care Team (Late st Contact Info) Description 01/22/2021 12:15 PM EDT - 01/22/2021 2:45 PM EDT Surgery [facility] S Operating Room [address] [place] [address] Edi Arango MD [address] [place] [phone] Amputation, Lower Extremity [00599 (CPT??)] Surgery Details Date/Time Status Location OR Service Patient Class Case Class Case Type Trauma Case? 01/22/2021 12:15 PM Posted [facility] 2SOR 07 Orthopedic Surgery Extended Recovery E-Electi ve Panel 1 Procedure LRB Anes Op Region Wound Class Comments Amputation, Lower Extremity Right Cl ass I/ Clean Surgeon Surgeon Role Service Panel Lesli Mccabe APRN Resident - Assisting Orthopedic Surgery 1 Yousif Amaral MD Resident - Assisting 1 Eid Arango MD Primary Orthopedic Surge ry 1 Special Needs R AKA 90 minutes documented in this encounter Social History Tobacco [...] Sign Reading Time Taken Comments Blood Pressure 119/70 01/22/2021 11:49 AM EDT Pulse 81 01/22/2021 11:49 AM EDT Temperature 36.3 ??C (97.4 ??F) 01/22/2021 1 1:49 AM EDT Respiratory Rate 16 01/22/2021 11:4 9 AM EDT Oxygen Saturation 99% 01/22/2021 11: 49 AM EDT Inhaled Oxygen Concentration - - Weight 58.5 kg (128 lb 15.5 oz) 01/22/2021 9:50 AM EDT Height - - Body Mass Index 20.83 01/23/2021 7:49 PM [...] After Amputation, Taking Care of Your Limb (Bahamian) * Amputation Surgery, Lower Body Strengthening After (Bahamian) * Amputation Surgery, Managing Pain After (Bahamian) * Amputation Surgery, Upper Body Strengthening After Lower Limb (Bahamian) * Stump Wrapping, Below the Knee, Discharge Instructions (Bahamian) * Medicine, Taking Safely: Discharge Instructions (Bahamian) documented in this encounter Medications at Time [...] Note Trudi Blair 65 y.o. female CSN: [id number] Discussed this patient this am with the Ortho team. Patient is S/P Left AKA on 01/23/[address] Arango. Patient will be discharged home later today to her [place], [place] residence. She resides there with her and he can provide PRN assist and transport after discharge. Patient is current with [facility] ph# .Today I have sent them updated orders to add PT/OT. Patient has theneeded DME in the home and she was provided with a prescription for wheelchair cushion which they will obtain through local DME provider in [place]. Availability of Care Givers (#Hours): 24 hours Patient's Choice of Community Agency(s): [facility]. Patient/Family Anticipated Services at Transition: home health care Equipment Needed After Discharge: wheelchair, manual Follow-up: To see Dr. Arango on 02/11/2021 at 0940 at [facility] clinic. Transportation Anticipated: family or friend will provide [...] MD [address] [place] [address] / [facility] [address] Referring provider name and address: No referring provider defined for this encounter. Chief Concern, Brief History of Present Illness, and Hospital Course Patient arrived to [facility] on 01/22/21 for their scheduled surgery. [...] Your Medications These medications were sent to [facility] [place] [address] [address] [place] [address] ?? acetaminophen 500 MG tablet ?? aspirin [...] MD Added automatically from request for surgery 28171 Post Discharge Instructions See post-op instruction sheet [...] Sports Medicine Orthopedic Reconstructiion ([facility]) Service Pager: [phone] Orthopedic Trauma (ORF) Service Pager: [phone] Cosigned by Edi Arango MD at 01/27/2021 [...] ??? BACK SURGERY N/A Back surgery from [facility] ??? DILATION AND CURETTAGE OF UTERUS ??? FOOT SURGERY Bilateral Foot surgery from [facility] ??? HYSTERECTOMY N/A Hysterectomy from [facility] ??? KNEE ARTHROPLASTY Bilateral ??? KNEE SURGERY Bilateral Knee Surgery from [facility] ??? SPINAL FUSION lumbar General Date of PT Session PT Received On: 01/23/21 Participants in Care Family/Caregiver Present: No Family/Caregiver: Spouse Patient Scheduling Manager: Not Applicable Precautions Left Lower Extremity Weight [...] chair with back Prior Function Level of [place]: Needs assistance with ADLs, Needs assistance with homemaking, Needs assistance with functional transfers Receives Help From: Family, comfort station attendant Bed Mobility/Transfers: Needs device and assist [...] Mobility Bed Mobility Exam: Rolling/Turning Level of [place]: Stand-by assist Physical/Nonphysical Assist: Verbal Cues, Supervision, 1 person assist Bed Mobility Exam: Scooting/Bridging Level of [place]: Stand-by assist Physical/Nonphysical Assist: Supervision, Verbal Cues, 1 person assist Bed Mobility Exam: Supine to Sit Level of [place]: Minimum assist (75% patient's effort) Physical/Nonphysical Assist: 2 persons, Verbal Cues, Set-up required, Supervision Assistive Device: Bed rails Transfers Transfer Exam: Sit to stand Level of [place]: (not appropriate at this time) Transfer Exam: Bed to Chair/Chair to Bed Level of [place]: Contact guard Physical/Nonphysical Assist: 1 person assist, [...] Touch: Left Lower Extremity: Intact Standardized Assessments [facility] 6-Clicks Mobility Assessment Difficulty patient has turning [...] climbing 3-5 steps with a railing?: Unable [facility] 6-Clicks Mobility Assessment Total : 12 Assessment [...] at 3:56 PM. * Progress Notes - Yolanda Mann OT - 01/23/2021 1:39 PM EDT [...] ??? BACK SURGERY N/A Back surgery from [facility] ??? DILATION AND CURETTAGE OF UTERUS ??? FOOT SURGERY Bilateral Foot surgery from [facility] ??? HYSTERECTOMY N/A Hysterectomy from [facility] ??? KNEE ARTHROPLASTY Bilateral ??? KNEE SURGERY Bilateral Knee Surgery from [facility] ??? SPINAL FUSION lumbar General Date of OT Session Date of OT Session: 01/23/21 Participants in Care Family/Caregiver Present: Yes Family/Caregiver: Spouse Patient Scheduling Manager: Not Applicable Precautions Left Lower Extremity Weight [...] chair with back Prior Function Level of [place]: Needs assistance with ADLs, Needs assistance with homemaking, Needs assistance with functional transfers Receives Help From: Family, comfort station attendant Bed Mobility/Transfers: Needs device and assist [...] Mobility Bed Mobility Exam: Rolling/Turning Level of [place]: Stand-by assist Physical/Nonphysical Assist: Supervision, Verbal Cues, 1 person assist Bed Mobility Exam: Scooting/Bridging Level of [place]: Stand-by assist Physical/Nonphysical Assist: Supervision, Verbal Cues Bed Mobility Exam: Supine to Sit Level of [place]: Minimum assist (75% patient's effort) Physical/Nonphysical Assist: Supervision, Verbal Cues, 2 persons Bed Mobility Exam: Sit to Supine Level of [place]: (Pt left out of bed to wheelchair) Transfers Transfer Exam: Bed to Chair/Chair to Bed Level of [place]: Contact guard Physical/Nonphysical Assist: 1 person assist, [...] Note Trudi Blair 65 y.o. female CSN: [id number] Discussed patient this am with Ortho team. [...] place. She resides with her Mahesh in [place], [place]. PT/OT are pending at this time. [...] stabilization. Selvin Hannon MD PGY-1, Orthopaedic Surgery [facility] Orthopaedic Trauma Service Pager: [phone] Orthopaedic Recon/Spine/Foot and Ankle Service Pager: [phone] Personal Pager: [phone] Cosigned by Edi Arango MD at 01/23/2021 10:54 AM EDT * Consults - Emily Tinsley RD - 01/23/2021 9:55 AM EDT Adult Nutrition Evaluation Note Trudi Blair 65 y.o. female [facility]: [id number] Room/Bed 602/602A Nutrition evaluation type: assessment Reason [...] ??? BACK SURGERY N/A Back surgery from [facility] ??? DILATION AND CURETTAGE OF UTERUS ??? FOOT SURGERY Bilateral Foot surgery from [facility] ??? HYSTERECTOMY N/A Hysterectomy from [facility] ??? KNEE ARTHROPLASTY Bilateral ??? KNEE SURGERY Bilateral Knee Surgery from [facility] ??? SPINAL FUSION lumbar Social history: Social [...] time she was discharged from the hospital ([facility]) she was weighing ~128# but might have [...] air) O2 Delivery Method: Partial rebreather mask Redbird Coma Scale Score: 15 Cain Scale Score: [...] Needs: Provided Based On Weight Used Kcal/day 9054-4507 28-30 kcal/kg Admit Protein/day 70-88 1.2-1.5 g/kg Admit Fluid/day 1 mL/kcal or per MD team Admit Additional Comments Current Nutrition Intake: Current Diet Order Regular Avg PO Intakes per RN Flowsheets Establishing Oral Nutrition Supplements Boost Plus TID Diet EDU Provided Will monitor need throughout LOS Congregation/ Cultural Needs Ethnic needs not identified at [...] diet as tolerated. - Adjusting to chocolate [place] Instant Breakfast TID as there is a [...] this time. I have contacted the Orthopaedic SALES MARKETING DIRECTOR, Jessica Milan, to have t he team make a determination regarding additional medications for pain relief. Patient was taking 30mg of MS contin twice a day at home prior to surgery. Dr. Bazan of [facility] has been contacted that the patient is out of surgery. 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 Priority Lab ID 1 Leg, Right Tissue ?? SURGICAL PATHOLOGY EXAM Edi Arango MD 01/22/21 5060 Description: right AKA - fresh for permanent Findings: Indications: Trudi Blair is an 65 y.o. female who is having surgery for Staphylococcal arthritisof right knee (CMS/HCC) [M00.061]. 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 Right above knee amputation Attending Surgeon(s): * Edi Arango - Primary Family Lawyer(s): Yousif Amaral MD - PGY4 Lesli Mccabe APRN Anesthesia: * No anesthesia type entered * ASA: III Blood Administration: Blood Product Administration History None Estimated Blood Loss: see op note Drains: * None in log * Specimen: Specimens ID Source Type Tests Collected By Collected At Frozen? Priority Lab ID 1 Leg, Right Tissue ?? SURGICAL PATHOLOGY EXAM Edi Arango MD 01/22/21 9500 Description: right AKA - fresh for permanent [...] therapy. She went to Dr. [place] and [facility] a few weeks ago where she [...] card, photo ID, along with power of family law attorney, guardianship or advanced directives if applicable Do [...] EDT Staphylococcal arthritis of right knee (CMS/HCC) TX AMPUTATE THIGH+STAT FITTING 01/22/2021 1:37 PM EDT [...] LAB HEMATOLOGY METHOD 01/24/2021 3:44 AM EDT [facility] RBC Count 2.96(L) 3.90 - 5.20 10*6/uL LAB HEMATOLOGY METHOD 01/24/2021 3:44 AM EDT [facility] HGB 8.1(L) 11.2 - 15.7 g/dL LAB HEMATOLOGY METHOD 01/24/2021 3:44 AM EDT [facility] HCT 24.9(L) 34.0 - 45.0 % LAB HEMATOLOGY METHOD 01/24/2021 3:44 AM EDT [facility] Platelet Count 282 155 - 369 10*3/uL LAB HEMATOLOGY METHOD 01/24/2021 3:44 AM EDT [facility] MCV 84 79 - 98 fL LAB HEMATOLOGY METHOD 01/24/2021 3:44 AM EDT [facility] MCH 27.4 26.0 - 32.0 pg LAB HEMATOLOGY METHOD 01/24/2021 3:44 AM EDT [facility] MCHC 32.5 30.7 - 35.5 g/dL LAB HEMATOLOGY METHOD 01/24/2021 3:44 AM EDT [facility] RDW 15.2(H) 11.5 - 14.5 % LAB HEMATOLOGY METHOD 01/24/2021 3:44 AM EDT [facility] MPV 9.6 8.8 - 12.5 fL LAB HEMATOLOGY METHOD 01/24/2021 3:44 AM EDT [facility] nRBC 0.0 <=0.0 per 100 WBCs LAB HEMATOLOGY METHOD 01/24/2021 3:44 AM EDT [facility] Blood Venous blood specimen / Unknown Venipuncture / Unknown 01/24/2021 3:03 AM EDT 01/24/2021 3:41 AM EDT Jessica Milan SALES MARKETING DIRECTOR LAB BLOOD ORDERABLES Final Re sult [facility] [address] [place] [address] * Transfuse RBC (01/23/2021 11:16 PM EDT) Edi Arango MD BLOOD TRANSFUSION ORDERAB LES Final Result * Transfuse RBC: 2 Units (01/23/2021 11:16 PM EDT) Edi Arango MD BLOOD TRANSFUSION ORDERAB LES Final Result * Transfuse RBC (01/23/2021 11:15 PM EDT) Edi Arango MD BLOOD TRANSFUSION ORDERAB LES Final Result * Prepare Leukocyte Reduced RBC: 2 Units (01/23/2021 5:04 AM EDT) [facility] Product Code [id number] GS BLOO D BANK Dispense Status Released BLOOD BANK Blood Expiration Date [id number] BLOOD BANK Unit Number [id number] B LOOD BANK Product Blood Type 5100 BLOOD BANK Blood Type O+ BLOOD BANK Crossmatch Compatible GS BLOOD BANK Product Code [id number] BLOO D BANK Dispense Status Transfused BLOOD BANK Blood Expiration Date [id number] BLOOD BANK Unit Number [id number] B LOOD BANK Product Blood Type 5100 BLOOD BANK Blood Type O+ BLOOD BANK Crossmatch Compatible BLOOD BANK Other us Edi Arango MD BLOOD BANK PRODUCT ORDERA BLES Final Result BLOOD BANK [address] [place] [address], * (ABNORMAL) Basic metabolic panel (01/23/2021 2:55 AM EDT) Glucose, Plasma 111(H) 74 - 99 mg/dL 01/23/2021 3:41 AM EDT [facility] BUN, Plasma 16 8 - 23 mg/dL 01/23/2021 3:41 AM EDT [facility] Creatinine, Plasma 0.99 0.60 - 1.10 mg/dL 01/23/2021 3:41 AM EDT [facility] BUN/Creatinine Ratio 16 01/23/2021 3:41 AM EDT [facility] Sodium, Plasma 131(L) 136 - 145 mmol/L 01/23/2021 3:41 AM EDT [facility] Potassium, Plasma 4.3 3.7 - 4.8 mmol/L 01/23/2021 3:41 AM EDT [facility] Chloride, Plasma 101 97 - 107 mmol/L 01/23/2021 3:41 AM EDT [facility] CO2, Plasma 21(L) 22 - 29 mmol/L 01/23/2021 3:41 AM EDT [facility] Anion Gap 9 6 - 16 mmol/L 01/23/2021 3:41 AM EDT [facility] Total Calcium, Plasma 8.4(L) 8.9 - 10.2 mg/dL 01/23/2021 3:41 AM EDT [facility] eGFR 56(L) >60 mL/min/1.7 3m*2 01/23/2021 [...] >60 mL/min/1.7 3m*2 01/23/2021 3:41 AM EDT [facility] Comment:eGFR = estimated GFR [...] 2:55 AM EDT 01/23/2021 3:19 AM EDT eLsli Mccabe SALES MARKETING DIRECTOR LAB BLOOD ORDERABLES Final Result [facility] [address] [place] [address] * (ABNORMAL) CBC (01/23/2021 2:55 AM EDT) WBC Count 8.30 3.70 - 10.30 10*3/uL LAB HEMATOLOGY METHOD 01/23/2021 3:22 AM EDT [facility] RBC Count 2.50(L) 3.90 - 5.20 10*6/uL LAB HEMATOLOGY METHOD 01/23/2021 3:22 AM EDT [facility] HGB 6.6(L) 11.2 - 15.7 g/dL LAB HEMATOLOGY METHOD 01/23/2021 3:22 AM EDT [facility] HCT 21.3(L) 34.0 - 45.0 % LAB HEMATOLOGY METHOD 01/23/2021 3:22 AM EDT [facility] Platelet Count 355 155 - 369 10*3/uL LAB HEMATOLOGY METHOD 01/23/2021 3:22 AM EDT [facility] MCV 85 79 - 98 fL LAB HEMATOLOGY METHOD 01/23/2021 3:22 AM EDT [facility] MCH 26.4 26.0 - 32.0 pg LAB HEMATOLOGY METHOD 01/23/2021 3:22 AM EDT [facility] MCHC 31.0 30.7 - 35.5 g/dL LAB HEMATOLOGY METHOD 01/23/2021 3:22 AM EDT [facility] RDW 14.4 11.5 - 14.5 % LAB HEMATOLOGY METHOD 01/23/2021 3:22 AM EDT [facility] MPV 9.5 8.8 - 12.5 fL LAB HEMATOLOGY METHOD 01/23/2021 3:22 AM EDT [facility] nRBC 0.0 <=0.0 per 100 WBCs LAB HEMATOLOGY METHOD 01/23/2021 3:22 AM EDT [facility] Blood Venous blood specimen / Unknown Venipuncture / Unknown 01/23/2021 2:55 AM EDT 01/23/2021 3:19 AM EDT Lesli Hufft SALES MARKETING DIRECTOR LAB BLOOD ORDERABLES Final Result Performing Organization Address City/State/[facility] Co de Phone Number [facility] [address] [place] [address] * Surgical Pathology Exam (01/22/2021 2:20 PM EDT) Case Report Surgical Pathology ?Case: [id number] ? Authorizing Provider: ??Edi Arango MD ?Collected: [...] previously final verified report. Final Diagnosis RIGHT [id number] AMPUTATION: -SOFT TISSUE INFLAMMATION AND NECRO-INFLAMMATORY DEBRIS. [...] Pre-op diagnosis: Staphylococcal arthritis of right knee ([facility]) [M00.061] 02/03/2021 3:10 PM EDT [facility] Gross Description A. RIGHT AKA - FRESH FOR PERMANENT Received fresh labeled right AKA is an auvad-sbk-qsgw amputation specimen (leg length-61 cm, foot length-23.5 cm). Underlying the superior aspect of the lower leg there is a focal variegated red-brown to esparza-yellow area of ulceration with dense white fibrotic scar (2.2 x 1.2 cm). The remainder of the epidermal surface is esparza-white and bosselated with no additional areas of ulceration identified. The ungues are esparza-yellow and markedly thickened. Air Gun Operator sections are submitted upon decalcification as follows: [...] LAB PATHOLOGY ORDERABLES Edited Result - Final [facility] [address] [place] [address] * (ABNORMAL) Basic metabolic panel (01/22/2021 11:32 AM EDT) Glucose, Plasma 102(H) 74 - 99 mg/dL 01/22/2021 12:05 PM EDT [facility] BUN, Plasma 15 8 - 23 mg/dL 01/22/2021 12:05 PM EDT [facility] Creatinine, Plasma 0.84 0.60 - 1.10 mg/dL 01/22/2021 12:05 PM EDT [facility] BUN/Creatinine Ratio 18 01/22/2021 12:05 PM EDT [facility] Sodium, Plasma 130(L) 136 - 145 mmol/L 01/22/2021 12:05 PM EDT [facility] Potassium, Plasma 3.7 3.7 - 4.8 mmol/L 01/22/2021 12:05 PM EDT [facility] Chloride, Plasma 97 97 - 107 mmol/L 01/22/2021 12:05 PM EDT [facility] CO2, Plasma 22 22 - 29 mmol/L 01/22/2021 12:05 PM EDT [facility] Anion Gap 11 6 - 16 mmol/L 01/22/2021 12:05 PM EDT [facility] Total Calcium, Plasma 9.1 8.9 - 10.2 mg/dL 01/22/2021 12:05 PM EDT [facility] eGFR >60 >60 mL/min/1.7 3m*2 01/22/2021 [...] MD LAB BLOOD ORDERABLES Final R esult Performing Organization Address City/State/[facility] Co de Phone Number [facility] [address] [place] [address] * Type and Screen (01/22/2021 11:32 AM EDT) ABO/Rh O Positive 01/22/2021 10:40 AM EDT BLOOD BANK Antibody Screen Negative 01/22/2021 10:40 AM EDT BLOOD BANK Blood Venous blood specimen / Unknown Venipuncture / Unknown 01/22/2021 11:32 AM EDT 01/22/2021 11:40 AM EDT Ernesto Hicks MD LAB BLOOD BANK TEST ORDERABL ES Final Result Performing Organization Address [facility] Co de Phone Number BLOOD BANK [address] [place] [address], * Prepare Leukocyte Reduced RBC: 1 Units (01/22/2021 9:46 AM EDT) Product Code [id number] GS BLOO D BANK Dispense Status Transfused BLOOD BANK Blood Expiration Date [id number] BLOOD BANK Unit Number [id number] B LOOD BANK Product Blood Type 5100 BLOOD BANK Blood Type O+ BLOOD BANK Crossmatch Compatible BLOOD BANK Other us Edi Arango MD BLOOD BANK PRODUCT ORDERA BLES Final Result Performing Organization Address [facility] Co de Phone Number BLOOD BANK [address] [place] [address], documented in this encounter Visit Diagnoses Diagnosis Staphylococcal arthritis of right knee (CMS/HCC)- Primary 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, sequela Gastroesophageal reflux disease Esophageal reflux Hiatal hernia Diaphragmatic hernia without mention of obstruction or gangrene Primary hypertension Unspecified essential hypertension Staphylococcal arthritis of right knee (CMS/HCC) documented in this encounter Admitting Diagnoses Diagnosis [...] daily, First dose on Anuradha 01/23/21 at 0900, Until Discontinued, Routine, Recovery(Phase II-Outpatient)/On [...] Given 01/23/2021 8:39 AM EDT 1 tablet gabapentin (Neurontin) capsule 200 mg 200 mg, [...] Given 01/22/2021 6:31 PM EDT 0.5 mg hyoscyamine (Anaspaz,Levsin) tablet 0.125 mg 0.125 mg, Oral, 2 times daily, First dose on Wed01/22/21 at 2100, Until Discontinued, Routine, Recovery(Phase II-Outpatient)/On Unit(Inpatient) Given 01/24/2021 8:03 AM EDT 0.125 mg Given 01/23/2021 10:09 PM EDT 0.125 mg Given 01/23/2021 8:56 AM EDT 0.125 mg lactated Ringer's infusion 100 mL/hr, Intravenous, Continuous, Starting on Wed01/22/21 at 1530, Until Wed01/24/21 at 1610, Routine New Bag 01/22/2021 4:23 PM EDT 100 mL/hr 100 m L/hr Continued from OR 01/22/2021 3:30 PM EDT 100 mL/hr 100 mL /hr metoclopramide (Reglan) tablet 10 mg 10 mg, Oral, 2 times daily, First dose on Wed01/22/21 at 2100, Until Discontinued, Routine, Recovery(Phase II-Outpatient)/On Unit(Inpatient) Given 01/24/2021 8:02 AM EDT 10 mg Given 01/23/2021 10:01 PM EDT 10 mg Given 01/23/2021 8:40 AM EDT 10 mg midodrine (Proamatine) tablet 10 mg [...] Given 01/23/2021 8:40 AM EDT 30 mg oxyCODONE (Roxicodone) immediate release tablet 10 [...] times daily, First dose on Wed01/23/21 at 2300, Until Discontinued, Routine Given 01/24/2021 8:03 AM EDT 10 mEq Given 01/23/2021 11:54 PM EDT 10 mEq Povidone-Iodine 5 % swab solution 1 Swab Nasal, Daily, 5 doses, First dose on Wed01/23/21 at 0900, Last dose on Wed01/27/21 at 0900, Routine Given 01/23/2021 8:41 AM EDT 1 Swab. promethazine (Phenergan) tablet 25 mg 25 mg, Oral, Every 6 hours PRN, Starting on Wed01/22/21 at 1615, Until Wed01/24/21 at 1610, Routine, Recovery(Phase II-Outpatient)/On Unit(Inpatient), nausea, vomiting Given 01/22/2021 6:45 PM EDT 25 mg senna-docusate (Carmen-Colace) 8.6-50 MG per tablet 2 [...] Jackson RN)1415 (Given - Provider: Krupa Graves RN)2201 (Given - Provider: Amnado Jackson RN) 0628 (Given - Provider: Amando Jackson RN)1400 (Canceled Entry - Provider: Automatic Discharge Provider - Comment: Automatically canceled at discontinue of medication order) aspirin chewable tablet 81 mg 81 mg, Oral, 2 times daily, First dose on Wed01/23/21 at 0900, Until Discontinued, Routine, Recovery(Phase II-Outpatient)/On Unit(Inpatient) 0839 (Given - Provider: Krupa Graves RN)2201 (Given - Provider: Amando Jackson RN) 0802 (Given - Provider: Stella Baig RN) atorvastatin (Lipitor) tablet 20 mg 20 mg, Oral, Nightly, First dose on Wed01/22/21 at 2100, Until Discontinued, Routine, Recovery(Phase II-Outpatient)/On Unit(Inpatient) 2140 (Given - Provider: Amando Jackson RN) 220 (Given - Provider: Amando Jackson RN) calcium-vitamin D 500-200 MG-UNIT per tablet 1 tablet 1 tablet, Oral, 2 times daily with meals, First dose on Wed01/22/21 at 2100, Until Discontinued, Routine, Recovery(Phase II-Outpatient)/On Unit(Inpatient) 2141 (Given - Provider: Amando Jackson RN) 0839 (Given - Provider: Krupa Graves, RN)1730 (Given - Provider: Krupa Graves, RN) 0802 (Given - Provider: Stella Baig RN) ceFAZolin (Ancef) injection 2 g (COMPLETED) 2 g, Intravenous, Once, 1 dose, On Wed01/22/21 at 1015, Routine, Holding - Preprocedure 1404 (Given - Provider: Elvis De La Paz CRNA) ceFAZolin (Ancef) injection 2 g (COMPLETED) 2 g, Intravenous, Every 8 hours, 3 doses, First dose on Wed01/22/21 at 2100, Last dose on Anuradha 01/23/21 at 1300, Routine, Recovery(Phase II-Outpatient)/On Unit(Inpatient) 214 (Given - Provider: Amando Jackson RN) 0546 (Given - Provider: Amando Jackson RN)1239 [...] Reason: Patient in procedure) 0045 (Return to [facility] - Provider: Aamndo Jackson RN)0840 (Given - Provider: Krupa Graves RN) gabapentin (Neurontin) capsule 200 mg 200 mg, [...] I only) 1617 (Given - Provider: Barb Gardner RN) hyoscyamine (Anaspaz,Levsin) tablet 0.125 mg 0.125 mg, Oral, 2 times daily, First dose on Wed01/22/21 at 2100, Until Discontinued, Routine, Recovery(Phase II-Outpatient)/On Unit(Inpatient) 214 (Given - Provider: Amando Jackson RN) 0856 (Given - Provider: rKupa Graves RN)220 (Given - Provider: Amando Jackson RN) 0803 (Given - Provider: Stella Baig, LISBETH) lactated Ringer's infusion (COMPLETED) 100 mL/hr, Intravenous, Once, 1 dose, On Wed01/22/21 at 1015, Routine 1209 (New Bag - Provider: Pao Zavaleta RN) metoclopramide (Reglan) tablet 10 mg 10 mg, Oral, 2 times daily, First dose on Wed01/22/21 at 2100, Until Discontinued, Routine, Recovery(Phase II-Outpatient)/On Unit(Inpatient) 2140 (Given - Provider: Amando Jackson RN) 0840 (Given - Provider: Krupa Graves RN)2201 (Given - Provider: Amando Jackson RN) 0802 (Given - Provider: Stella Baig RN) midazolam (Versed) injection 2 mg (COMPLETED) 2 mg, Intravenous, Once, 1 dose, On Wed01/22/21 at 1730, STAT, Recovery (Phase I only) 1710 (Given - Provider: Barb Gardner RN) midodrine (Proamatine) tablet 10 mg 10 mg, Oral, 2 times daily, First dose on Wed01/22/21 at 2100, Until Discontinued, Routine, Recovery(Phase II-Outpatient)/On Unit(Inpatient) 2140 (Given - Provider: Amando Jackson RN) 08 (Given - Provider: Krupa Graves, RN)2200 (Given - Provider: Amando Jackson, LISBETH) 08 (Given - Provider: Stella Baig, RN) morphine CR (MS Contin) 12 hr tablet 30 mg 30 mg, Oral, 2 times daily, First dose on Wed01/22/21 at 2100, Until Discontinued, Routine, Recovery(Phase II-Outpatient)/On Unit(Inpatient) 2140 (Given - Provider: Amando Jackson RN) 08 (Given - Provider: Krupa Graves RN)2201 (Given - Provider: Amando Jackson RN) 08 (Given - Provider: Stella Baig RN) morphine PF 4 mg (COMPLETED) 4 [...] 0900 (Not Given - Provider: Krupa Graves, LISBETH - Reason: Patient/family refused) 0900 (Not Given - Provider: Stella Baig RN - Reason: Patient/family refused) Potassium Chloride 20 MEQ/15ML (10%) solution 10 mEq 10 mEq, Oral, 2 times daily, First dose on Wed01/23/21 at 2300, Until Discontinued, Routine 2354 (Given - Provider: Amando Jackson RN) 0803 (Given - Provider: Stella Baig, LISBETH) potassium chloride CR (Klor-Con) ER tablet 10 mEq (CANCELED) 10 mEq, Oral, 2 times daily, First dose on Wed01/22/21 at 2100, Until Discontinued, Routine, Recovery(Phase II-Outpatient)/On Unit(Inpatient) 2139 (Not Given - Provider: Amando Jackson RN - Reason: Patient/family refused - Comment: pt states she takes casule, cannot take tablet. It breaks out her mouth) 08 (Given - Provider: Krupa Graves, LISBETH)2201 (Return to [facility] - Provider: Amando Jackson RN) Povidone-Iodine 5 % swab solution 1 Swab Nasal, Daily, 5 doses, First dose on Wed01/23/21 at 0900, Last dose on Wed01/27/21 at [...] II-Outpatient)/On Unit(Inpatient) 2139 (Given - Provider: Amando Jackson, LISBETH) 2200 (Given - Provider: Amando Jackson RN) topiramate (Topamax) tablet 50 mg 50 mg, Oral, 2 times daily, First dose on Wed01/22/21 at 2100, Until Discontinued, Routine, Recovery(Phase II-Outpatient)/On Unit(Inpatient) 2140 (Given - Provider: Amando Jackson, LISBETH) 0839 (Given - Provider: Krupa Graves RN)2200 (Given - Provider: Amando Jackson RN) 0802 (Given - Provider: Stella Baig, LISBETH) traZODone (Desyrel) tablet 50 mg 50 mg, Oral, Nightly, First dose on Wed01/22/21 at 2100, Until Discontinued, Routine, Recovery(Phase II-Outpatient)/On Unit(Inpatient) 2143 (Given - Provider: Amando Jackson, LISBETH) 220 (Given - Provider: Amando Jackson RN) Continuous [...] Provider: Amando Jackson RN) 0037 (Return to Cabinet - Provider: Amando Jackson RN)1001 (Given - [...] Jackson RN)1001 (See Alternative - Provider: Chari Y Genov, RN)1502 (See Alternative - Provider: Krupa Graves RN)2135 (See Alternative - Provider: Yesy Allen RN) 0804 (Given - Provider: Stella Baig, RN)1157 (See Alternative - Provider: Stella [...] documented as of this encounter Care Teams Smash Hand Relationship Specialty Start Date End Date Blu Birmingham MD [address] [place] [id number] PCP - General 08/16/20 03/11/21 documented as of this encounter
--- OUTSIDE RECORDS SUMMARY | 2024-03-11 09:28 | XMS_ITS | Encounter Summary ---
Author Organization [facility] Address [address] [place] [address] Care Team Providers Care Texture Artist Name Role Phone Blu Birmingham MD Primary Care Provider [phone] Encounter Details Date Type Department Care Team ([facility] st Contact Info) Description 08/28/2020 Orders Only Medical Office Building [facility] [address], [address] [place] [id number] Allison Franz [facility] [address] [place] [address] Chronic pain of right knee (Primary Dx) Social History Tobacco Use Types Packs/Day Years Used Date Smoking Tobacco: Never Comments Unknown Sex and Gender Information Value Date Recorded Sex Assigned at Female 05/22/2022 10:56 AM EST Legal Sex Female 5:59 PM EDT Gender Identity Female 05/22/2022 10:56 AM EST Sexual Orientation Not on file documented as of this encounter Plan of Treatment Not on file documented as of this encounter Results * XR Knee Right [...] OR 2 VIEWS ordered by VINNIE HURLEY, [id number] CLINICAL INDICATION: 65 years-old Female for pain. [...] 1 OR 2 VIEWS ordered by VINNIE HURLEY,[id number] CLINICAL INDICATION: 65 years-old Female for pain. [...] by Fay Moreno on 09/10/2020 3:14 PM Vinnie Hurley MD IMG XR PROCEDURES Final Resul t documented in this encounter Visit Diagnoses Diagnosis Chronic pain of right knee- Primary Chronic pain of right knee documented in this encounter Additional Health Concerns Infection Onset Date Last Indicated Resolved Time MRSA Comment:MRSA (methicillin resistant Staphylococcus aureus) 04/17/2020 05/21/2022 documented as of this encounter Care Teams Texture Artist Relationship Specialty Start Date End Date Blu Birmingham MD [address] [place], [place] [id number] PCP - General 08/16/20 03/11/21 documented as of this encounter
--- OUTSIDE RECORDS SUMMARY | 2024-03-11 09:28 | XMS_ITS | Encounter Summary ---
Author Organization Healthcare Address [address] [place] [address] Care Team Providers Care Cooler Conveyor Loader Name Role Phone Unavailable Primary Care Provider Unavailabl e Encounter Details Date Type Department Care Team (Latest Contact Info) Description 04/17/2020 9:14 AM EST - 04/22/2020 3:42 PM EST Hospital Encounter [facility] S Inpatient [address] [place] [address] Edi Robles MD [address] [facility] [address] [place] [address] Infection and inflammatory reaction due to internal right knee prosthesis, initial encounter ([facility]) Social History Tobacco Use Types Packs/Day Years Used Date Smoking Tobacco: Never Comments Unknown Sex and Gender Information Value Date Recorded Sex Assigned at Female 05/22/2022 10:56 AM EST Legal Sex Female 5:59 PM EDT Gender Identity Female 05/22/2022 10:56 AM EST Sexual Orientation Not on file documented as of this encounter Medications at [...] 07/19/2018 12/24/2020 documented as of this encounter Miscellaneous Notes * Social Care Assessment Summary - ProviderLaurie MD - 04/22/2020 12:00 AM EST Patient Name: Morgan BLAIR Date of : 1955 Discharge Note Discharge Note Who Will Provide Assistance Post-Discharge? Answers: Family - Mauricio How Many Hours is/are the Caregiver(s) Available? Answers: 24 Hours Discharge Disposition Answers: Home Plans to return to her [facility]. Is Home Health Needed? If Yes, Specify Agency Name and Service Needed. Answers: Yes [facility] ph# [phone]. Is DME Needed? If Yes, Select Type of Equipment Needed and DME Company. Answers: No DME Needs Is Patient Being Discharged with any of the Following? If Yes, Specify Agency and Phone Number. Please Provide Details in Additional Comments Box Below. Answers: Home Infusion [facility] ph# ., Answers: Lab Draws Per [facility]., Answers: PICC Per [facility]. I Certify that the Patient has been Provided with a Choice for DME, Home Health, Infusion Services and Facility. Answers: Yes Is This a High-Risk LACE Patient? Answers: No Follow Up Appointments Scheduled? Answers: Yes To see Dr. adame on 05/02/20 at 1630. Does the Patient Have Transportation to Follow up Appointments? Answers: No Scholarship? Answers: No MARINA? Answers: No Medicare Second Notice? Answers: Yes Were Services Declined? Answers: No Additional Comments: Notes: Discussed this am with the Ortho team. Patient to discharge home today with IV antibiotics and HH. RN/CM has sent final orders this am to [facility] # and spoken with Infusion nurse-Melissa Finch. Per Melissa with [facility] IP she will be coming to provide infusion teaching this afternoon and anticipate patient will receive delivery of her IV antibiotics and supplies today around 1pm. Final orders have also been sent to [facility] this am and they can see patient tomorrow 04/23/20 for start of care. can assist as needed after discharge and provide PRN transportation. I certify that the opportunity to review post-acute care facilities/agencies efficiency and quality data was provided to patient/family/legal merchandiser retail representative. Answers: Yes Electronically signed by: Yvonne Ochoa * Discharge Summary - Edi Robles MD - 04/22/2020 12:00 AM EST HOSPITALIZATION: Admit Date:17-Apr-2020 Discharge Date:22-Apr-2020 Discharge Atttending Edi Story MD Admitting Diagnosis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 DISCHARGE DIAGNOSIS: 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: Reason for Hospitalization hardware removal HOSPITAL COURSE: Hospital Course Ms. Blair is a 64y female with R TKA WANDA, antibiotic spacer placement 04/17. The patient was medically optimized for surgery and on 04/17 was taken to the operating room for ROHand cemented arthrodesis. The procedure was tolerated well, and the patient was subsequently extubated and taken to the PACU for immediate post-operative monitoring. Following the PACU stay, the patient was transferred to the floor. On the day of discharge the patient was afebrile, ambulating, tolerating PO pain medicine, voiding spontaneously and tolerating a regular diet. The patient was seen and evaluated by PT/OT and recommended discharge to [facility]. Pt had PICC line palced and will receive daptomycin for 6 weeks with weekly labs. It was felt that the patient had reached maximal benefit from hospitalization and was deemed ready for discharge. The patient was discharged in stable condition and will follow up with Dr. Robles, Orthopaedic Recon Surgery, on 05/07/20. DIAGNOSTIC AND PROCEDURAL EVENTS: - 04/17/20: removal of hardware and cemented arthrodesis Suicide Screening: Discharge Suicide Screen: Has this patient had a low, moderate or high suicide severity documented during their hospital stay? No. DISCHARGE INFORMATION: DispositionHome Discharge Conditionstable (signs or symptoms of potential problems absent or manageable) Discharge MedicationsFinal Medication List for Discharge Summary Discharge Medicationsacetaminophen 500 mg oral tablet 2 tab(s) orally every 8 hours aspirin 81 mg oral tablet, chewable 1 tab(s) orally 2 times a day atorvastatin 20 mg oral tablet 1 tab(s) orally once a day (at bedtime) DAPTOmycin 600 milligram(s) every 24 hours - powder for injection to IntraVenous Piggy Back every 24 hours metoclopramide 10 mg oral tablet 1 tab(s) orally 2 times a day metoprolol succinate 50 mg oral tablet, extended release 1 tab(s) orally once a day midodrine 10 mg oral tablet 1 tab(s) orally 2 times a day morphine 15 mg/12 hr oral tablet, extended release 1 tab(s) orally once a day ondansetron 4 mg oral tablet 1 tab(s) orally every 8 hours, As Needed oxybutynin 5 mg/24 hours oral tablet, extended release 1 tab(s) orally 2 times a day oxyCODONE 5 mg oral tablet 1 tab(s) orally every 4 hours, As needed, Severe pain 5-8 pantoprazole 40 mg oral delayed release tablet 1 tab(s) orally once a day potassium chloride 10 mEq oral tablet, extended release 1 tab(s) orally 2 times a day sennosides-docusate 8.6 mg-50 mg oral tablet 2 tab(s) orally once a day (at bedtime) topiramate 50 mg oral tablet 1 tab(s) orally 2 times a day traMADol 50 mg oral tablet 1 tab(s) orally every 6 hours, As needed, pain score 3-5. use prior to oxycodone or hydromorphone traZODone 50 mg oral tablet 1 tab(s) orally once a day (at bedtime) Pending ResultsNo Pending Results DISCHARGE INSTRUCTIONS: Diet: Follow the Healthy Heart Diet (See instructions in your patient education handouts). Work towards or maintain a healthy weight. Lifting: No Restrictions. Activity: move around as you are able and Weight bearing as tolerated right lower extremitity, knee immobilizer bilaterally. Wound or Incision Care: Reason to call: feels warm or hot to the touch, is red or dark pink, is tight or swollen and looks shiny, becomes more tender or sore to the touch, wound smells bad and wound is draining pus, bleeding or coming open. Instructed patient to call if: Temperature is above 101.5. Recommended Follow Up Instructions: Follow Up Instructions: Follow up with: Dr Robles. in/on 07-May-2020 2:10 PM. Follow up with: Endocrinology. in/on 10-Jun-2020 2:00 PM. hypercalcemia. Electronic Signatures: Diomedes Poe MD (Resident) (Signed 22-Apr-20 08:19) Authored: HOSPITALIZATION, DISCHARGE DIAGNOSIS, HOSPITAL COURSE, DIAGNOSTIC AND PROCEDURAL EVENTS, DISCHARGE INFORMATION, DISCHARGE INSTRUCTIONS, Recommended Follow Up Instructions, Suicide Screening Edi Robles MD (Attending) (Signed 23-Apr-20 07:53) Co-Signer: HOSPITALIZATION, DISCHARGE DIAGNOSIS, HOSPITAL COURSE, DIAGNOSTIC AND PROCEDURAL EVENTS,DISCHARGE INFORMATION, DISCHARGE INSTRUCTIONS, Recommended Follow Up Instructions, Suicide Screening Last Updated: 23-Apr-20 07:53 by Edi Robles MD (Attending) * Social Care Assessment Summary - ProviderLaurie MD - 04/19/2020 12:00 AM EST Patient Name: Morgan BLAIR Date of : 1955 Initial Evaluation Note Initial Evaluation Note Anticipated Discharge Date 2020-04-22 00:00 Information Obtained From: Answers: Patient, Answers: Medical Record Current Living Situation Answers: Family Lives with her - Mauricio Blair. Dwelling Type Answers: House - Single Floor Housing Circumstances - Select All That Apply Answers: None applicable What is Patient's Plan at Discharge Answers: Return to Home Plans to return to her home in [place], [place]. Who Will Provide Assistance Post-Discharge? Answers: Family How Many Hours is/are the Caregiver(s) Available? Answers: 24 Hours Functional Status Prior to Hospitalization Answers: Partially Independent Does Patient Have Home Health? If Yes, Specify Home Health Agency. Answers: No Does the Patient Have Home Infusion or Dialysis? If Yes, Specify Agency. Answers: No Home Infusion, Answers: No Dialysis Does Patient Have Any of the Following Hospital Equipment or DME? If Yes, Specify Type of Equipment/DME. Answers: Bedside Commode, Answers: Cane, Answers: Standard Walker, Answers: Wheelchair Does Patient Have Current DME Provider? If Yes, Specify Company. Answers: No Does Patient have a Primary Care Provider? Answers: Yes (if not listed or incorrect, please place Change ADT order in [facility] for registration to update PCP) Transportation Home at Time of Discharge Answers: Family/Friend Transportation to Follow up Appointments Answers: Family or Friend will Provide Does Patient Have Living Will/Advance Directives? If Yes, Instruct Patient/Family to Provide a Copy. Answers: Yes Does Patient Have a Power of Support Group Manager? If Yes, Please Specify Who and Instruct Patient/Family to Provide a Copy of Form. Answers: Yes, Medical POA - Mauricio Blair ph# , Answers: Yes, Financial POA - Mauricio Blair ph# Does Patient Have a Guardian? If Yes, Please Specify Who and Request a Copy of Legal Form. Answers: No Additional Comments: Notes: Discussed patient this am with the Ortho team. ID was consulted 04/18/20 and they are following operative cultures. Plan to keep patient in house through the weekend with anticipated discharge home 04/22/20 if final ID recommendations are received. RN/CM met with patient this am to complete initial CM evaluation. She lives with her Mauricio in a single level home in [place], [place]. She has no HH but has used [facility] in the past and would be alright to use them again if possible. No Home infusion preference. Her insurance is Medicare A&B and Blue Access. Her PCP is Blu Richards. She owns a Wheelchair, BSC, SW. RN/CM will send [employer] referrals today to [facility] and to [facility]. Electronically signed by: Yvonne Ochoa * Social Care Assessment Summary - Laurie Garcia MD - 04/19/2020 12:00 AM EST Pastoral Care Note: Pastoral Care Note: This visit was initiated by the senior director finance in relation to initial visit. The patient has a support system and an understandng of the effects of illness on his/ her life. Additional Comments: Pt shared about her 37 yrs working at [employer], her marriage and the struggles she faces due to her health issues. Pt's arrived so visit ended. Future Care Plan: creative services coordinator follow-up. Pastoral Care: Phone [phone], Pager # [phone]. Electronic Signatures: Luba Cormier (Urgent Care Physician Assistant) (Signed 19-Apr-20 13:54) Authored: Pastoral Care Note Last Updated: 19-Apr-20 13:54 by Luba Cormier (Urgent Care Physician Assistant) * Social Care Assessment Summary - Laurie Garcia MD - 04/19/2020 12:00 AM EST Patient Name: Morgan BLAIR Date of : 1955 Progress Note Progress Note Anticipated Discharge Date 2020-04-22 00:00 Has Discharge Plan Changed? If Yes, Please Describe Change and Provide Details in Additional Comments Box Below. Answers: No Additional Comments Notes: Patient has been accepted today by [facility] for care after discharge associated with IV antibiotics, PICC line, labs and HH-PT. [facility] will be closed on 04/22/20 but will return to the office 04/23/20 and stated they could see patient in her home 04/23/20. Electronically signed by: Yvonnewilfrido Ochoa * Pre-Procedure Assessment - Laurie Garcia MD - 04/19/2020 12:00 AM EST Time-Out Statements: The procedure being performed was PICC Insertion. Central line bundle was observed and the following components were present. Hand washing was performed immediately before putting on sterile gown and gloves. Maximum barrier precautions were used, including cap and mask for all in the procedure area. Chlorhexidine skin antisepsis was performed, including placement of antimicrobial disc. Avoidance of femoral sites was attempted. Indications for this procedure included terminal makeup operator IV antibiotics. This procedure was performed by Vivien Leggett RN [facility]. Time-Out was called at 15:20. Electronic Signatures: Debbie Leggett RN (Nurse) (Signed 19-Apr-20 16:40) Authored: Time Out for Procedure Last Updated: 19-Apr-20 16:40 by Debbie Leggett RN (Nurse) * Social Care Assessment Summary - Laurie Garcia MD - 04/18/2020 12:00 AM EST Patient Name: Morgan BLAIR Date of : 1955 Progress Note Progress Note Anticipated Discharge Date 2020-04-22 00:00 Has Discharge Plan Changed? If Yes, Please Describe Change and Provide Details in Additional Comments Box Below. Answers: No Housing Circumstances - Select All That Apply Answers: None applicable Additional Comments Notes: RN/DARIO discussed this patient this am with the [facility] team. Patient is a 64y/o female who is S/P removal of hardware and cemented arthrodesis due to infected right TKA on 04/17/[address] Robles. She will remain in house until operative cultures are finalized. ID to follow and patient will likely require terminal makeup operator IV antibitics at discharge. Patient stated to RN/CM that she lives with her - Mauricio Blair in [place], [place] in a single level home. She will have PRN assistance and transport after discharge by her . She already owns RW, Wheelchair, Slide board, BSC & Shower seat. She will require Home Health services and Home infusion services when discharged. RN/CM to discuss any preferences fo these providers with patient/ and make Allscripts referrals. Electronically signed by: Yvonne Ochoa * Social Care Assessment Summary - Laurie Garcia MD - 04/18/2020 12:00 AM EST Pastoral Care Note: Pastoral Care Note: This visit was initiated by the senior director finance in relation to initial visit. Additional Comments: I attempted to visit the patient but the patient was unavailable. Pastoral Care is happy to follow up PRN. Electronic Signatures: Jay Guzman (Urgent Care Physician Assistant) (Signed 18-Apr-20 15:43) Authored: Pastoral Care Note Last Updated: 18-Apr-20 15:43 by Jay Guzman (Urgent Care Physician Assistant) * Consults - Ayala Castaneda MD - 04/18/2020 12:00 AM EST Consultation Service: Service/ Team: ID - Medicine / Infectious Disease. Requesting Attending Physician: Edi Robles MD(Attending): Attending, Surgery - Orthopedics, Medicine Admitting Diagnosis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 Primary Care PhysicianBLU RICHARDS Requesting [id number] - Community/Internal Medicine [facility] Team 2 (COMM) Reason for ConsultAntibiotic recommendations for right prosthetic joint infection s/p prosthesis removal History of Present Illness: - Trudi Blair is a 64yo female with PMH of HTN, HLD, presenting for removal of right knee arthroplasty and cemented knee fusion. Per patient report, she underwent right total knee arthroplasty in 2016 with no complications. In late 2018 or early 2018, she underwent elective left total knee arthroplasty. After this procedure, in spring 2018, she began to have issues with her right knee, and underwent a patellar tendon repair. She also developed 2 draining sinus tracts over her right knee. Around this time, she was admitted to [facility] in [place], [place] for back pain and bacteremia. The patient believes she was being treated for a kidney infection. During this hospital admission, repeat blood cultures grew MRSA. In August 2019, her left knee arthroplasty was removed with placement of an antibiotic spacer. She received 6 weeks of vancomycin in a monitored setting. She has been seen in clinic by Dr. Ulloa with [facility] due to persistent right knee prosthetic joint infection and was receiving oral antibiotic suppression. The patient states that she has not been able to walk in the past year, since the beginning of her right joint infection. She says that this is due to pain and lower extremity weakness. She has been getting around via wheelchair, but is ableto move herself from her bed to chair. She reports that her right knee continues to drain. In the past year, she typically has had to change her bandaging once at night and once in the morning, but has had to change this more frequently in the past 3 weeks due to increased drainage. Of note, she has also lost a significant amount of weight in the past year. She states that she weighed nearly 300lbs in 2019, and currently weighs closer to 150-160lbs. This weight loss has also been documented in outpatient notes. The patient says that she has had very little appetite since her left knee arthroplasty removal. Denies current fevers, chills, SOA, chest pain, nausea, vomiting, urinary symptoms. PMH: HTN, HLD, h/o obesity PSHx: - bilateral total knee arthroplasty (right knee in 2017, left knee in 2019) - left cemented knee fusion 2019 - right cemented knee fusion 2020 Social history: Denies tobacco, alcohol, or recreational drug use Currently lives at home with her . Has home aides who assist them with daily activities Allergies: Biaxin Allergies: Biaxin: Other Review of Systems: - 14 point ROS negative except as described in the HPI above Physical Examination: - VITALS (last 24h) [retrieved for TRUDI BLAIR at 18 Apr 2020 16:46]: Tc: 36.4 Tmax: 36.9 @ Apr 03:00 Tf: 97.5 Tmax: 98.4 @ Apr 03:00 HR: 80 (63 - 80) BP: 89/59 (89/56 - 107/69) RR: 16 (16 - 16) SpO2: 99% (96% - 99%) GEN: very pleasant but lethargic woman, appears younger than stated age HEENT: non-traumatic, normocephalic, PERRL, EOMI, normal dentition with no lesions, no scleral icterus RESP: CTAB, no increased labor of breathing on RA CV: rrr, no m/r/g EXT: no clubbing, cyanosis, or lesions. Non-pitting edema to bilateral LEs ABD: diffuse discomfort on palpation, BS+ x4 NEURO: AOx4. Intact sensation to light touch throughout LABS (last 24h) [retrieved for TRUDI BLAIR at 18 Apr 2020 16:48]: 138 105 15 < 80 Ca: 11.8 P: 2.7 [04/18 @ 03:12] 3.5 25 1.91 WBC: 9.98 / Hb: 10.1 / Hct: 30.5 / Plt: 180 [04/18 @ 03:12] AST: 14 / ALT: 8 / AlkPhos: 92 / Bili: 0.3 / Prot: 4.8 / Alb: 2.2 [04/18 @ 03:12] ASSESSMENT AND PLAN: Assessment and Plan: - Trudi Blair is a 64yo female with h/o HTN, HLD, and right knee infection with draining sinuses s/p right knee arthroplasty removal and cemented fusion. # Right knee infection - Recommend daptomycin 8mg/kg - Will need 6 weeks of IV antibiotics in a monitored setting with monitored labs #h/o tuberculosis exposure (grandmother) - Recommend QuantiFeron gold - Recommend CXR Final recommendations pending sign-off from Dr. Castaneda ATTESTATION STATEMENTS : Attending Attestation Statement: I saw and evaluated the patient with the medical student. I discussed the case with the medical student and agree with the findings and plan as documented. I personally performed the Exam and MedicalDecision Making. Attending Physician Comments: Mrs Blair was seen in consultation for ID per the request of Dr. Theo Sheehan for advice on choice and duration of antibiotics to treat prosthetic joint infection of the Right knee. She is now s/p removal of the prosthesis with cement fusion of the knee in full extension. The patient has been wheel chair bound x 1 year. The patient was seen with Ms. Ritchie, MS-3. I interviewed the patient and examin ed her. This is a very pleasant 64 year old who appears younger than stated age. She was sitting up in her chair at time of our visit. The patient admits to chronic progressively worsening OA of both knees secondary to the kind of work she did as well as morbid obesity of >300#. The patient did well with het TKA on the right done in 2017 and she was ambulating well. The patient had elective TKA of the left in and post operatively developed Surgical site infection with MRSA requring extensive debridement, antibiotic spacer placement and prolonged antibiotics to heal. Shortly there after the patient developed painful swelling of the Right knee associated with inability to bear weight. She became febrile to 102 and was admitted to [facility] in January 2019 with clinical sepsis and found to have high grade MRSA bacteremia. The patient was initially treatedfor patella tendon rupture and then was diagnosed with septic knee and had to have prolonged treatment with Vancomycin via PICC access,, initially in the hospital, then in a high level skilled CT andthen finally released to go home. However, she has had frequent courses of Oral antibiotic suppression The patient continued to have intermittent swelling with pain and redness and sponaneous drainage of purulent material from the knee joint. The patient was eventually transferred to for higher level of care. She is s/p removal of TKA with cement fusion. Exam : Remarkable for WDWN female appears younger than stated age. She has pendulous loose fatty tissue hanging from the UE secondary to the rapid weight loss. Lungs are clinically clear anteriorly. Heart sounds are distant but RSR Abdomen is obese flabby without organomegaly Right knee in surgical dressing with drain in place. CUBE MACHINE TENDER Non focal I personally reviewed all the imaging studies. The patient has areas of erosion and osteopenia concerning for residual OM. Impression: TKA infection with MRSA. S/P removal of prosthesis with cement fusion in full extension. Concerning for residual bone infection. Recommend Daptomycin 8mgs per KG daily x 6 weeks. Monitor CRP, CK CBC with diff and CMP now and weekly while on Daptomycin. Patient relates that her paternal grandmother with TB when she was 6 months old. She didn't think that her parents were evaluated for TB. They are now; father with stroke and mother with lung cancer. Recommend QFG and baseline CXR ID will follow. Electronic Signatures: Ayala Castaneda MD, I (Attending) (Signed 18-Apr-20 23:13) Authored: ATTESTATION STATEMENTS Co-Signer: GENERAL, REVIEW OF SYSTEMS, PHYSICAL EXAM/ OBJECTIVE INFORMATION/ PERTINENT FINDINGS, ASSESSMENT AND PLAN Sofia Ritchie (Student Medical) (Signed 18-Apr-20 16:56) Authored: GENERAL, REVIEW OF SYSTEMS, PHYSICAL EXAM/ OBJECTIVE INFORMATION/ PERTINENT FINDINGS, ASSESSMENT AND PLAN Last Updated: 18-Apr-20 23:13 by Ayala Castaneda MD, I (Attending) * Op Note - Provider, MD Laurie - 04/17/2020 12:00 AM EST [place], [place] OPERATIVE REPORT Patient Name: TRUDI BLAIR [facility] Number: [id number] Date of : 1955 Date of Admission: 04/17/2020 Date of Procedure: 04/17/2020 Attending Physician: EDI ROBLES MD,PhD Patient Location: [address] PREOPERATIVE DIAGNOSES: 1. Infected right total knee arthroplasty. 2. Failed right patellar tendon reconstruction. POSTOPERATIVE DIAGNOSES: 1. Infected right total knee arthroplasty. 2. Failed right patellar tendon reconstruction. PROCEDURE PERFORMED: 1. Removal right total knee arthroplasty. 2. Cemented knee fusion. ATTENDING SURGEON: Edi Robles MD. MANAGER DISCOVERY SURGEONS: Pepito Bailey MD. Lesli Mccabe, Nurse Practitioner. ANESTHESIA: General. ESTIMATED BLOOD LOSS: SPECIMENS: COMPLICATIONS: None. INDICATIONS FOR PROCEDURE: Ms. Blair is a very pleasant woman who has had a long history with respect to her right knee. She had a total knee replacement via an outside provider that went on to rupture of her extensor mechanism that was reconstructed followed by an infection. She has been living on chronic suppressive antibiotics but has been continuing to worsen. Her overall medical health is also quite poor with very poor nutrition and poor healing potential. As such, I discussed with them my recommendations for total knee removal and cemented fusion to give her a leg to walk on as she is not a candidate for reimplantation. DESCRIPTION OF PROCEDURE: The patient was met in the preoperative holding area. Surgical limb was signed. Surgical consent was reviewed and she agreed. She was taken to the operating room and induced under general anesthetic, placed supine on the operating room table. Surgical extremity was prepped and draped in normal sterile fashion. A surgical time-out was performed according to hospital policy and the patient received antibiotics prior to surgical incision. Anterior approach to the knee was utilized, carried down to the subcutaneous tissues down to the level of the extensor mechanism. There were three gross rents in the extensor mechanism with purulence tracking deep. Deep cultures were taken. Surgical personnel changed their attire and an arthrotomy was performed and we removed all of the Marlex mesh as well as FiberWire that was still present after the attempted reconstruction of her patellar tendon. A complete synovectomy in the anterior compartment was then performed. The knee was flexed to 90 degrees. The polyethylene was removed and a high-speed oscillating saw was used to break the cement mantle between the tibia and tibial prosthesis as well as the femur and the femoral prostheses. These were removed without difficulty. The patellar button was removed. The knee was then copiously irrigated with normal saline and a dilute Betadine mixture. A Rodriguez tyler was placed proximally and distally after gaining access to both the femoral and tibial canals and scrapping these out and three bags of Simplex with tobramycin were introduced into the canal and in the space where the joint had been. This was allowed to harden with traction to perform the cemented arthrodesis. The wound was then copiously irrigated, closed in surgical layers. Sterile dressings were applied. At the end an incisional wound VAC was also applied. At the end of this surgical procedure all sponge, lap counts appropriately accounted for. Electronically Signed By: EDI ROBLES MD,PhD 04/23/2020 02:02 P EDI ROBLES MD,PhD Attending Surgeon, ORTHOPAEDIC SURGERY PWO/pws Dictated Date/Time: 04/17/2020 14:16 Inventory Control Specialist Date/Time: 04/18/2020 05:44 Document Number: [id number] Job Number: [id number] Document is Signed NOTE: supplied by interface * Op Note - Lesli Mccabe NP - 04/17/2020 12:00 AM EST Pre-Op Diagnosis: infected right tka. Pre-Op Diagnosis: 02. 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 Procedures: removal of hardware and cemented arthrodesis. Primary Surgeon: светлана. Reimbursement Director(s): jocelyn mccabe. Anesthesia: GA-ET. Estimated Blood Loss: 25 ml. Description of Findings: infected hardware. Drains: None. Events: None. Complications: None. Electronic Signatures: Lesli Mccabe APRN (Nurse Practitioner) (Signed 17-Apr-20 14:06) Authored: General Last Updated: 17-Apr-20 14:06 by Lesli Mccabe APRN (Nurse Practitioner) documented in this encounter Plan of Treatment Pending Results Name Type Priority Associated Diagnoses Date /Time Type and Screen Lab STAT 11:02 AM EST documented as of this encounter Procedures Procedure Name Priority Date/Time Associated Diagnosis Comments CLOSTRIDIODES (CLOSTRIDIUM) DIFFICILE,PCR Routine 04/22/2020 9:08 AM EST BASIC METABOLIC PANEL, PLASMA Routine 04/22/2020 3:30 AM EST BASIC METABOLIC PANEL, PLASMA Routine 04/21/2020 3:13 AM EST BASIC METABOLIC PANEL, PLASMA Routine 04/20/2020 3:29 AM EST BASIC METABOLIC PANEL, PLASMA Routine 04/19/2020 3:03 AM EST VANCOMYCIN, RANDOM, PLASMA Timed 04/18/2020 8:44 AM EST PTH INTACT TOTAL STAT 04/18/2020 3:59 AM EST VITAMIN D 25 HYDROXY Routine 04/18/2020 3:54 AM EST CREATINE KINASE, TOTAL, PLASMA Routine 04/18/2020 3:12 AM EST WBC DIFFERENTIAL Routine 04/18/2020 3:12 AM EST CBC W/O DIFFERENTIAL Routine 04/18/2020 3:12 AM EST C-REACTIVE PROTEIN, PLASMA Routine 04/18/2020 3:12 AM EST PHOSPHORUS, PLASMA Routine 04/18/2020 3: 12 AM EST IONIZED CALCIUM, LAKISHA Routine 04/18/19 3:12 AM EST COMPREHENSIVE METABOLIC PANEL, PLASMA Routine 04/18/2020 3:12 AM EST ECG ADULT 04/18/2020 XR KNEE RIGHT 1 OR 2 VIEWS Routine 04/17/2020 4:00 PM EST SURGPATH DATA CONVERSION Routine 04/17/2020 3:07 PM EST ROUTINE MYCOLOGICAL CULTURE DC Routine 04/17/2020 1:17 PM EST ROUTINE MYCOLOGICAL CULTURE DC Routine 04/17/2020 1:17 PM EST ZZ02 Routine 04/17/2020 1:17 PM EST SUSCEPTIBILITY EACH Routine 04/17/2020 1 :17 PM EST GRAM STAIN Routine 04/17/2020 1:17 PM EST GRAM STAIN Routine 04/17/2020 1:17 PM EST ANAEROBIC CULTURE Routine 04/17/2020 1:1 7 PM EST ANAEROBIC CULTURE Routine 04/17/2020 1:1 7 PM EST TYPE AND SCREEN STAT 04/17/2020 11:02 AM EST BASIC METABOLIC PANEL, PLASMA STAT 04/17/2020 11:02 AM EST documented in this encounter Results * Clostridiodes (Clostridium) difficile PCR (04/22/2020 9:08 AM EST) C difficile PCR toxin B gene DNA Result NEGATIVE for Clostridium difficile by PCR, no C. difficile toxin B gene DNA detected. (NOTE) This test is FDA approved for use with liquid stool specimens. This test is used for clinical purposes. It should not be regarded as investigational or for research. This laboratory is certified under the Clinical Laboratory Improvement Amendments of 1988 (CLIA-88) as qualified to perform high complexity clinical laboratory testing. REFERENCE INTERVAL: Negative for Clostridium difficile SUNQUEST C difficile PCR 027 Result Negative for Clostridium difficile by PCR SUNQUEST 04/22/2020 9:08 AM EST 04/22/2020 11:49 AM EST us Bart Brunner MD LAB MICROBIOLOGY - GENERAL ORDERABLES Final Result SUNQUEST * (ABNORMAL) Basic Metabolic Panel, Plasma (04/22/2020 3:30 AM EST) Glucose, Plasma 71(L) 74 - 99 mg/dL [facility] BUN, Plasma 13 8 - 23 mg/dL [facility] Creatinine, Plasma 1.40(H) 0.60 - 1.10 mg/dL [facility] BUN/Creatinine Ratio 9 8 - 20 [facility]QUEST Sodium, Plasma 139 136 - 145 mmol/L [facility] Potassium, Plasma 3.5(L) 3.7 - 4.8 mmol/L [facility]QUEST Chloride, Plasma 115(H) 97 - 107 mmol/L [facility]QUEST CO2, Plasma 16(L) 22 - 29 mmol/L [facility]QUEST Anion Gap 8 6 - 16 mmol/L [facility]QUEST Calcium, Plasma 9.4 8.9 - 10.2 mg/dL SUNQUEST eGFR 38(L) >60 SEE NOTE SUNQUEST eGFR, if AFR/AM 46(L) >60 SEE NOTE SUNQUEST Comment: (NOTE) eGFR = estimated GFR; eGFR units = mL/min/1.73 sq meters Chronic Kidney Disease is considered if eGFR <60 mL/min/1.73 sq meters Kidney failure is considered if eGFR is <15 mL/min/1.73 sq meters. eGFR assumes steady state plasma creatinine concentration; not applicable if renal function is rapidly changing or patient is on dialysis. 04/22/2020 3:30 AM EST 04/22/2020 3:52 AM EST us Bart Brunner MD LAB BLOOD ORDERABLES Final Result SUNQUEST * (ABNORMAL) Basic Metabolic Panel, Plasma (04/21/2020 3:13 AM EST) Glucose, Plasma 141(H) 74 - 99 mg/dL [facility] BUN, Plasma 14 8 - 23 mg/dL [facility] Creatinine, Plasma 1.39(H) 0.60 - 1.10 mg/dL [facility] BUN/Creatinine Ratio 10 8 - 20 [facility]QUEST Sodium, Plasma 139 136 - 145 mmol/L [facility] Potassium, Plasma 3.5(L) 3.7 - 4.8 mmol/L [facility]QUEST Chloride, Plasma 113(H) 97 - 107 mmol/L [facility]QUEST CO2, Plasma 18(L) 22 - 29 mmol/L [facility] Anion Gap 8 6 - 16 mmol/L [facility]QUEST Calcium, Plasma 9.7 8.9 - 10.2 mg/dL [facility]QUEST eGFR 38(L) >60 SEE NOTE [facility]QUEST eGFR, if AFR/AM 46(L) >60 SEE NOTE SUNQUEST Comment: (NOTE) eGFR = estimated GFR; eGFR units = mL/min/1.73 sq meters Chronic Kidney Disease is considered if eGFR <60 mL/min/1.73 sq meters Kidney failure is considered if eGFR is <15 mL/min/1.73 sq meters. eGFR assumes steady state plasma creatinine concentration; not applicable if renal function is rapidly changing or patient is on dialysis. 04/21/2020 3:13 AM EST 04/21/2020 3:44 AM EST Jessica Milan APRN LAB BLOOD ORDERABLES Final Re sult SUNQUEST * (ABNORMAL) Basic Metabolic Panel, Plasma (04/20/2020 3:29 AM EST) Glucose, Plasma 97 74 - 99 mg/dL [facility] BUN, Plasma 16 8 - 23 mg/dL [facility] Creatinine, Plasma 1.44(H) 0.60 - 1.10 mg/dL [facility] BUN/Creatinine Ratio 11 8 - 20 [facility] Sodium, Plasma 140 136 - 145 mmol/L [facility] Potassium, Plasma 3.7 3.7 - 4.8 mmol/L [facility] Chloride, Plasma 114(H) 97 - 107 mmol/L [facility] CO2, Plasma 19(L) 22 - 29 mmol/L [facility] Anion Gap 7 6 - 16 mmol/L [facility]QUEST Calcium, Plasma 10.4(H) 8.9 - 10.2 mg/dL [facility]QUEST eGFR 37(L) >60 SEE NOTE [facility]QUEST eGFR, if AFR/AM 44(L) >60 SEE NOTE SUNQUEST Comment: (NOTE) eGFR = estimated GFR; eGFR units = mL/min/1.73 sq meters Chronic Kidney Disease is considered if eGFR <60 mL/min/1.73 sq meters Kidney failure is considered if eGFR is <15 mL/min/1.73 sq meters. eGFR assumes steady state plasma creatinine concentration; not applicable if renal function is rapidly changing or patient is on dialysis. 04/20/2020 3:29 AM EST 04/20/2020 3:35 AM EST Jessica Milan APRN LAB BLOOD ORDERABLES Final Re sult SUNQUEST * (ABNORMAL) Basic Metabolic Panel, Plasma (04/19/2020 3:03 AM EST) Glucose, Plasma 90 74 - 99 mg/dL [facility] BUN, Plasma 17 8 - 23 mg/dL [facility] Creatinine, Plasma 1.73(H) 0.60 - 1.10 mg/dL [facility] BUN/Creatinine Ratio 10 8 - 20 [facility] Sodium, Plasma 134(L) 136 - 145 mmol/L [facility] Potassium, Plasma 3.7 3.7 - 4.8 mmol/L [facility] Chloride, Plasma 106 97 - 107 mmol/L [facility] CO2, Plasma 21(L) 22 - 29 mmol/L [facility] Anion Gap 7 6 - 16 mmol/L [facility] Calcium, Plasma 10.9(H) 8.9 - 10.2 mg/dL [facility]QUEST eGFR 30(L) >60 SEE NOTE [facility]QUEST eGFR, if AFR/AM 36(L) >60 SEE NOTE SUNQUEST Comment: (NOTE) eGFR = estimated GFR; eGFR units = mL/min/1.73 sq meters Chronic Kidney Disease is considered if eGFR <60 mL/min/1.73 sq meters Kidney failure is considered if eGFR is <15 mL/min/1.73 sq meters. eGFR assumes steady state plasma creatinine concentration; not applicable if renal function is rapidly changing or patient is on dialysis. 04/19/2020 3:03 AM EST 04/19/2020 3:52 AM EST Jessica Milan APRN LAB BLOOD ORDERABLES Final Re sult Performing Organization Address [facility] de Phone Number SUNQUEST * Vancomycin, Random, Plasma (04/18/2020 8:44 AM EST) Vancomycin, Random, Plasma 12.4 0 - 40.0 ug/mL SUNQUEST 04/18/2020 8:44 AM EST 04/18/2020 8:58 AM EST Jessica Milan APRN LAB BLOOD ORDERABLES Final Re sult Performing Organization Address [facility] de Phone Number SUNQUEST * (ABNORMAL) PTH Intact Total (04/18/2020 3:59 AM EST) PTH Intact Total <10(L) 12 - 72 pg/mL SUNQUEST Comment: Reference range: ??12 to 72 pg/mL Assay performed by chemiluminescent immunoassay at the [facility]. Bio-intact PTH (third generation PTH, cyclase activating PTH) is also available from [facility] as part of a panel (PTHP2). 04/18/2020 3:59 AM EST 04/18/2020 8:17 AM EST Mariano Zavala [place] LAB BLOOD ORDERABLES Maria E l Result Performing Organization Address [facility] Phone Number SUNQUEST * Vitamin D 25 Hydroxy (04/18/2020 3:54 AM EST) Vitamin D 25 Hydroxy 29.8 20 - 80 ng/mL SUNQUEST Comment: Vitamin D, 25-Hydroxy reference range, age 18 years and up: Deficiency: ? <12 ng/mL Insufficiency: ?12 to 19 ng/mL Sufficiency: ?20 to 80 ng/mL Possible toxicity: ??>100 ng/mL 04/18/2020 3:54 AM EST 04/18/2020 8:16 AM EST [facility] Maria E l Result Performing Organization Address [facility] de Phone Number SUNQUEST * (ABNORMAL) Ionized calcium, other (04/18/2020 3:12 AM EST) Ionized Calcium, Whole Blood 6.5(HH) 4.6 - 5.1 mg/dL SUNQUEST Comment:Read Back completed RESULTED TO: CONNOR BEAVER RN ON: 04/18/2020 AT 3:36 AM. 04/18/2020 3:12 AM EST 04/18/2020 3:27 AM EST Edi Robles MD LAB BLOOD ORDERABLES Maria E l Result Performing Organization Address [facility]/ZIP Co de Phone Number SUNQUEST * (ABNORMAL) CBC W/O Differential (04/18/2020 3:12 AM EST) WBC Count 9.98 3.7 - 10.3 k/uL SUNQUEST RBC Count 3.35(L) 3.9 - 5.2 M/uL [facility] HGB 10.1(L) 11.2 - 15.7 g/dL SUNQUEST HCT 30.5(L) 34 - 45 % SUNQUEST Platelet Count 180 155 - 369 k/uL SUNQUEST MCV 91 79 - 98 fL [facility]QUEST MCH 30.1 26 - 32 pg [facility]QUEST MCHC 33.1 30.7 - 35.5 g/dL SUNQUEST RDW 14.5 11.5 - 14.5 % [facility]QUEST MPV 11.0 8.8 - 12.5 fL SUNQUEST NRBC COUNT 0.0 0 % SUNQUEST 04/18/2020 3:12 AM EST 04/18/2020 3:31 AM EST Jessica Milan APRN LAB BLOOD ORDERABLES Final Re sult Performing Organization Address [facility] Co de Phone Number SUNQUEST * (ABNORMAL) WBC Differential (04/18/2020 3:12 AM EST) Pathologist [facility] Differential Type AUTOMATED SUNQUEST Neutrophils % 74 % SUNQUEST Lymphocytes 12 % SUNQUEST Monocytes 11 % SUNQUEST Eosinophils 2 % SUNQUEST Basophils 1 % SUNQUEST Immature Granulocytes % 0 % SUNQUEST ABS Neutrophil 7.45(H) 1.6 - 6.1 k/uL SUNQUEST ABS Lymphocyte 1.15(L) 1.2 - 3.9 k/uL SUNQUEST ABS Monocyte 1.11(H) 0.3 - 0.9 k/uL SUNQUEST ABS Eosinophil 0.15 0.0 - 0.5 k/uL SUNQUEST ABS Basophil 0.08 0.0 - 0.1 k/uL SUNQUEST Immature Granulocyte Absolute 0.04 0.0 - 0.06 k/uL SUNQUEST 04/18/2020 3:12 AM EST 04/18/2020 3:31 AM EST Narrative SUNQUEST - 04/18/2020 3:36 AM EST Therapeutic decision making should be based on absolute values, rather than percentages. Therapeutic decision making should be based on absolute values, rather than percentages. Therapeutic decision making should be based on absolute values, rather than percentages. Therapeutic decision making should be based on absolute values, rather than percentages. Jessica Milan [facility] LAB BLOOD ORDERABLES Final Re sult Performing Organization Address [facility] Co de Phone Number SUNQUEST * Phosphorus, Plasma (04/18/2020 3:12 AM EST) Pathologist [facility] Department Phosphorus, Plasma 2.7 2.5 - 4.5 mg/dL SUNQUEST 04/18/2020 3:12 AM EST 04/18/2020 3:30 AM EST Jessica Milan [facility] LAB BLOOD ORDERABLES Final Re sult Performing Organization Address [facility] de Phone Number SUNQUEST * (ABNORMAL) C-Reactive Protein, Plasma (04/18/2020 3:12 AM EST) Pathologist [facility] CRP 35.8(H) <9 mg/L SUNQUEST Comment: Effective July 18, 2019, the unit of measure for CRP has changed from mg/dL to mg/L. The new reference range for CRP is < or = 8 mg/L. This CRP test is appropriate for assessment of infection, systemic inflammation and/or tissue injury. To assess cardiovascular disease risk order high sensitivity CRP (CRPH). 04/18/2020 3:12 AM EST 04/18/2020 3:30 AM EST Jessica Milan FEE CLERK LAB BLOOD ORDERABLES Final Re sult Performing Organization Address [facility] Co de Phone Number SUNQUEST * (ABNORMAL) Comprehensive Metabolic Panel, Plasma (04/18/2020 3:12 AM EST) Glucose, Plasma 80 74 - 99 mg/dL SUNQUEST BUN, Plasma 15 8 - 23 mg/dL [facility]QUEST Creatinine, Plasma 1.91(H) 0.60 - 1.10 mg/dL [facility]QUEST BUN/Creatinine Ratio 8 8 - 20 SUNQUEST Sodium, Plasma 138 136 - 145 mmol/L SUNQUEST Potassium, Plasma 3.5(L) 3.7 - 4.8 mmol/L SUNQUEST Chloride, Plasma 105 97 - 107 mmol/L SUNQUEST CO2, Plasma 25 22 - 29 mmol/L SUNQUEST Anion Gap 8 6 - 16 mmol/L SUNQUEST Calcium, Plasma 11.8(H) 8.9 - 10.2 mg/dL SUNQUEST AST, Plasma 14 9 - 36 U/L SUNQUEST ALT, Plasma 8 8 - 33 U/L SUNQUEST Alkaline Phosphatase, Plasma 92 46 - 142 U/L SUNQUEST Total Bilirubin, Plasma 0.3 0.2 - 1.1 mg/dL SUNQUEST Total Protein 4.8(L) 6.3 - 7.9 g/dL SUNQUEST Albumin, Plasma 2.2(L) 3.5 - 5.2 g/dL SUNQUEST eGFR 26(L) >60 SEE NOTE SUNQUEST eGFR, if AFR/AM 32(L) >60 SEE NOTE SUNQUEST Comment: (NOTE) eGFR = estimated GFR; eGFR units = mL/min/1.73 sq meters Chronic Kidney Disease is considered if eGFR <60 mL/min/1.73 sq meters Kidney failure is considered if eGFR is <15 mL/min/1.73 sq meters. eGFR assumes steady state plasma creatinine concentration; not applicable if renal function is rapidly changing or patient is on dialysis. 04/18/2020 3:12 AM EST 04/18/2020 3:30 AM EST us Jessica Milan FEE CLERK LAB BLOOD ORDERABLES Final Re sult SUNVALENC[facility] * (ABNORMAL) Creatine Kinase, Total, Plasma (04/18/2020 3:12 AM EST) Creatine Kinase, Plasma 18(L) 37 - 168 U/L SUNQUEST 04/18/2020 3:12 AM EST 04/18/2020 3:30 AM EST us Jessica Milan FEE CLERK LAB BLOOD ORDERABLES Final Re sult SUNQUEST * ECG ADULT (04/18/2020) Narrative 04/18/2020 Ordered by an unspecified provider. us Historical Provider ECG ORDERABLES Final Res ult * XR Knee Right 1 or 2 Views (04/17/2020 4:00 PM EST) Anatomical Region Laterality Modality Lower Extremities, Knee Right Radiogra phic Imaging Narrative 04/17/2020 4:12 PM EST REQUESTING PHYSICIAN: EDI ROBLES REASON FOR EXAMINATION/PROCEDURE: RAD PDP:Y ??* ??Total Knee Arthroplasty EXAMINATION / PROCEDURE: KNEE 2 VIEWS RIGHT Apr 17 2020 - 16:00; ? CLINICAL INDICATION: RAD PDP:Y ??* ??Total Knee Arthroplas ty TECHNIQUE: KNEE 2 VIEWS RIGHT COMPARISON: 03/05/2020 FINDINGS: Removal of the right knee arthroplasty hardware and placement of a nail across the femur and tibia with cement spanning the joint space. Patella roseanne is again seen. Knee effusion with soft tissue and intra-articular gas is seen. ?? IMPRESSION: Postoperative changes as described. CRITICAL RESULT: ?? No. COMMUNICATION: Per this written report. ?? Verified by: CARLA MARCELINO M.D. on Apr 17 2020 4:10P Transcribed by: [facility] on Apr 17 2020 ??4:10P Dictated by: CARLA MARCELINO M.D. on Apr 17 2020 ??4:10P Procedure Note Carla Marcelino MD - 07/30/2020 REQUESTING PHYSICIAN: EDI ROBLES REASON FOR EXAMINATION/PROCEDURE: RAD PDP:Y * Total Knee Arthroplasty EXAMINATION / PROCEDURE: KNEE 2 VIEWS RIGHT Apr 17 2020 - 16:00; CLINICAL INDICATION: RAD PDP:Y * Total Knee Arthroplas ty TECHNIQUE: KNEE 2 VIEWS RIGHT COMPARISON: 03/05/2020 FINDINGS: Removal of the right knee arthroplasty hardware and placement of a nail across the femur and tibia with cement spanning the joint space. Patella roseanne is again seen. Knee effusion with soft tissue and intra-articular gas is seen. IMPRESSION: Postoperative changes as described. CRITICAL RESULT: No. COMMUNICATION: Per this written report. Verified by: CARLA MARCELINO M.D. on Apr 17 2020 4:10P Transcribed by: [facility] on Apr 17 2020 4:10P Dictated by: CARLA MARCELINO M.D. on Apr 17 2020 4:10P us Edi Robles MD IMG XR PROCEDURES Final R esult * Surgical Pathology (04/17/2020 3:07 PM EST) Macroscopic tissue specimen (specimen) 04/17/2020 3:07 PM EST 04/17/2020 3:07 PM EST Narrative COPATH - 04/18/2020 5:46 PM EST [place], [place] [address] MR #: [id number] TRUDI BLAIR 1955 (Age: 64) ??FW Collect Date: 04/17/2020 15:07 Receipt Date: 04/17/2020 15:07 Page 1 DEPARTMENT OF PATHOLOGY AND LABORATORY MEDICINE SURGICAL PATHOLOGY REPORT Fax: ??[phone] ?[phone] Email: [email or web address] ATTENDING MD: Isaura Robles MD ? Service: RAINEY ? Location: [facility] OTHER MD(S): ?Reported: 04/18/2020 17:46 DIAGNOSIS Right knee hardware, removal: ??- Gross examination only ? Electronically Signed Out ? sxn/04/18/2020 Gardenia Anthony MD ?? 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 No inscriptions are seen. Additionally received is an intact tibial tray measuring 7.0 cm in greatest dimension. No inscriptions are seen. Additionally received is an intact white opaque plastic liner measuring 7.0 cm in greatest dimension. Inscriptions seen ([id number]). Additionally received is an intact patella button measuring 3.0 cm in diameter. No instructions are seen. Additionally received is an intact silver surgical screw measuring 4.5 cm in length with a diameter of 0.3 cm. The specimen was submitted for gross diagnosis only. bp/04/18/2020 Dio Schulte resident may have participated in this service. ??A pathologist has performed and is responsible for the reported pathologic evaluation. ICD: T84.092A ? [facility] compl of internal right knee prosthesis, init encntr SNOMED CODES: F: A; 10348 GO Edi Robles MD LAB PATHOLOGY ORDERABLES Final Result Performing Organization Address [facility] de Phone Number COPATH * ROUTINE MYCOLOGICAL CULTURE DC (04/17/2020 1:17 PM EST) 04/17/2020 1:17 PM EST 04/17/2020 5:23 PM EST Narrative SUNQUEST - 06/27/2020 6:19 AM EDT SQ ACC. NUMBER ?[id number] SPECIMEN DESCRIPTION: ?WOUND RIGHT KNEE ??2 SPECIAL REQUESTS: ?NONE SPECIMEN CONTAINER INFO: ? ORDER PROCESSED. CULTURE: ? NO FUNGAL GROWTH AT 1 WEEK REPORT STATUS: ? FINAL 04/25/2020 Edi Robles MD LAB BLOOD ORDERABLES Maria E l Result Performing Organization Address [facility] de Phone Number SUNQUEST * Gram stain (04/17/2020 1:17 PM EST) 04/17/2020 1:17 PM EST 04/17/2020 5:23 PM EST Narrative SUNQUEST - 06/27/2020 6:19 AM EDT SQ ACC. NUMBER ?[id number] SPECIMEN DESCRIPTION: ?WOUND RIGHT KNEE ??2 SPECIAL REQUESTS: ?NONE GRAM STAIN ? NO ORGANISMS SEEN ? NO POLYMORPHONUCLEAR WHITE BLOOD CELLS REPORT STATUS: ? FINAL [id number] us Edi Robles MD LAB MICROBIOLOGY - GENERA L ORDERABLES Final Result SUNQUEST * Suceptibility Each (04/17/2020 1:17 PM EST) 04/17/2020 1:17 PM EST 04/17/2020 5:23 PM EST Narrative SUNQUEST - 06/27/2020 6:19 AM EDT SQ ACC. NUMBER ?[id number] SPECIMEN DESCRIPTION: ?WOUND RIGHT KNEE ??2 SPECIAL REQUESTS: ?NONE QUANTITATION: ?LIGHT GROWTH CULTURE: ? STAPHYLOCOCCUS AUREUS (MRSA) ...REFER TO ?ACCESSION NUMBER [id number] FOR SUSCEPTIBILITY ? NOTE: ??Patient needs MRSA Protocol REPORT STATUS: ? FINAL [id number] SQ ACC. NUMBER ?[id number] ORGANISM ? STAPHYLOCOCCUS AUREUS (MRSA) ...REFER TO ?ACCESSION NUMBER [id number] FOR SUSCEPTIBILITY METHOD ? Billing Info: ??patient charged for serological ?identification of this isolate us Edi Robles MD LAB MICROBIOLOGY - GENERA L ORDERABLES Final Result Performing Organization Address [facility] de Phone Number SUNQUEST * Anaerobic Culture (04/17/2020 1:17 PM EST) 04/17/2020 1:17 PM EST 04/17/2020 5:23 PM EST Narrative SUNQUEST - 06/27/2020 6:19 AM EDT SQ ACC. NUMBER ?[id number] SPECIMEN DESCRIPTION: ?WOUND RIGHT KNEE ??2 SPECIAL REQUESTS: ?NONE CULTURE: ? NO ANAEROBES ISOLATED REPORT STATUS: ? FINAL [id number] us Edi Robles MD LAB MICROBIOLOGY - GENERA L ORDERABLES Final Result Performing Organization Address [facility] de Phone Number SUNQUEST * ROUTINE MYCOLOGICAL CULTURE DC (04/17/2020 1:17 PM EST) 04/17/2020 1:17 PM EST 04/17/2020 5:23 PM EST Narrative SUNQUEST - 06/27/2020 6:19 AM EDT SQ ACC. NUMBER ?[id number] SPECIMEN DESCRIPTION: ?WOUND RIGHT KNEE ??1 SPECIAL REQUESTS: ?NONE SPECIMEN CONTAINER INFO: ? ORDER PROCESSED. CULTURE: ? NO FUNGAL GROWTH AT 1 WEEK REPORT STATUS: ? FINAL 04/25/2020 Edi Robles MD LAB BLOOD ORDERABLES Maria E l Result SUNQUEST * Gram stain (04/17/2020 1:17 PM EST) 04/17/2020 1:17 PM EST 04/17/2020 5:23 PM EST Narrative SUNQUEST - 06/27/2020 6:19 AM EDT SQ ACC. NUMBER ?[id number] SPECIMEN DESCRIPTION: ?WOUND RIGHT KNEE ??1 SPECIAL REQUESTS: ?NONE GRAM STAIN ? FEW POLYMORPHONUCLEAR WHITE BLOOD CELLS ? NO ORGANISMS SEEN REPORT STATUS: ? FINAL [id number] Edi Robles MD LAB MICROBIOLOGY - GENERA L ORDERABLES Final Result Performing Organization Address [facility]/State/ZIP Co de Phone Number SUNQUEST * Suceptibility Each (04/17/2020 1:17 PM EST) 04/17/2020 1:17 PM EST 04/17/2020 5:23 PM EST Narrative SUNQUEST - 06/27/2020 6:19 AM EDT SQ ACC. NUMBER ?[id number] SPECIMEN DESCRIPTION: ?WOUND RIGHT KNEE ??1 SPECIAL REQUESTS: ?NONE QUANTITATION: ?LIGHT GROWTH CULTURE: ? STAPHYLOCOCCUS AUREUS (MRSA) ? NOTE: ??Patient needs MRSA Protocol REPORT STATUS: ? FINAL [id number] SQ ACC. NUMBER ?[id number] ORGANISM ? STAPHYLOCOCCUS AUREUS (MRSA) METHOD ? Billing Info: ??patient charged for serological ?identification of this isolate SQ ACC. NUMBER ?[id number] ORGANISM ? STAPHYLOCOCCUS AUREUS (MRSA) METHOD ? DEVI MATHIS SQ ACC. NUMBER ?[id number] ORGANISM ? STAPHYLOCOCCUS AUREUS (MRSA) METHOD ? CATHY (mcg/mL) AMPICILLIN ? RESISTANT CLINDAMYCIN ?RESISTANT ? This isolate is presumed to be RESISTANT to ?Clindamycin based on the detection of an ?inducible enzyme for Clindamycin resistance. DAPTOMYCIN ? <=1 SUSCEPTIBLE ERYTHROMYCIN ? >4 RESISTANT GENTAMICIN ? <=1 SUSCEPTIBLE LINEZOLID ?2 SUSCEPTIBLE MINOCYCLINE ?<=1 SUSCEPTIBLE OXACILLIN ?>2 RESISTANT PENICILLIN G ? >1 RESISTANT TETRACYCLINE ? <=0.5 SUSCEPTIBLE TRIMETHOPRIM/SULFAMETHOXAZOLE <=0.5/9.5 SUSCEPTIBLE VANCOMYCIN ? 1 SUSCEPTIBLE us Edi Robles MD LAB [facility] Final Result SUNQUEST * Anaerobic Culture (04/17/2020 1:17 PM EST) 04/17/2020 1:17 PM EST 04/17/2020 5:23 PM EST Narrative SUNQUEST - 06/27/2020 6:19 AM EDT SQ ACC. NUMBER ?[id number] SPECIMEN DESCRIPTION: ?WOUND RIGHT KNEE ??1 SPECIAL REQUESTS: ?NONE CULTURE: ? NO ANAEROBES ISOLATED REPORT STATUS: ? FINAL [id number] us Edi Robles MD LAB MICROBIOLOGY - GENERA L ORDERABLES Final Result SUNQUEST * (ABNORMAL) Basic Metabolic Panel, Plasma (04/17/2020 11:02 AM EST) Glucose, Plasma 107(H) 74 - 99 mg/dL SUNQUEST BUN, Plasma 16 8 - 23 mg/dL SUNQUEST Creatinine, Plasma 2.05(H) 0.60 - 1.10 mg/dL SUNQUEST BUN/Creatinine Ratio 8 8 - 20 SUNQUEST Sodium, Plasma 136 136 - 145 mmol/L SUNQUEST Potassium, Plasma 3.4(L) 3.7 - 4.8 mmol/L SUNQUEST Chloride, Plasma 100 97 - 107 mmol/L SUNQUEST CO2, Plasma 25 22 - 29 mmol/L SUNQUEST Anion Gap 11 6 - 16 mmol/L SUNQUEST Calcium, Plasma 14.6(HH) 8.9 - 10.2 mg/dL SUNQUEST Comment: Read Back completed RESULTED TO: ??AILYN TURNER RN ON: ??04/17/2020 AT 11:46 AM. eGFR 24(L) >60 SEE NOTE SUNQUEST eGFR, if AFR/AM 29(L) >60 SEE NOTE SUNQUEST Comment: (NOTE) eGFR = estimated GFR; eGFR units = mL/min/1.73 sq meters Chronic Kidney Disease is considered if eGFR <60 mL/min/1.73 sq meters Kidney failure is considered if eGFR is <15 mL/min/1.73 sq meters. eGFR assumes steady state plasma creatinine concentration; not applicable if renal function is rapidly changing or patient is on dialysis. 04/17/2020 11:0 2 AM EST 04/17/2020 11:08 AM EST us Lance Owen MD LAB BLOOD ORDERABLES Final Resul t SUNQUEST documented in this encounter Visit Diagnoses Diagnosis Infection and inflammatory reaction due to internal right knee prosthesis, initial encounter ([facility]) documented in this encounter
--- OUTSIDE RECORDS SUMMARY | 2024-03-11 09:28 | XMS_ITS | Encounter Summary ---
Author Organization [facility] Address [address] [place] [address] Care Team Providers Care Front End Application Developer Name Role Phone Blu Birmingham MD Primary Care Provider Encounter Details Date Type Department Care Team ([facility] st Contact Info) Description 09/06/2020 Abstract Medical Office Building Surgery [facility] [address], [address] [place] [address] Edi Robles MD [address] [place] [address] Social History Tobacco Use Types [...] Sign Reading Time Taken Comments Blood Pressure 131/90 06/04/2020 2:13 PM EST Pulse - - Temperature - - Respiratory Rate - - Oxygen Saturation - - Inhaled Oxygen Concentration - - Weight - - Height - - Body Mass Index - - documented in this encounter Plan of Treatment Not on file documented as of this encounter Visit Diagnoses Not on filedocumented in this encounter Additional Health Concerns Infection Onset Date Last Indicated Resolved Time MRSA Comment:MRSA (methicillin resistant Staphylococcus aureus) 04/17/2020 05/21/2022 documented as of this encounter Care Teams Front End Application Developer Relationship Specialty Start Date End Date Blu Birmingham MD [address] [place] [id number] PCP - General 08/16/20 03/11/21 documented as of this encounter
--- OUTSIDE RECORDS SUMMARY | 2024-03-11 09:28 | XMS_ITS | Encounter Summary ---
Author Organization [facility] Address [address] [place] [address] Care Team Providers Care Exhaust Emissions Inspector Name Role Phone Blu Birmingham MD Primary Care Provider Reason for Visit * Reason Comments Follow-up Consult Encounter Details Date Type Department Care Team (Late st Contact Info) Description 09/10/2020 2:10 PM EDT Office Visit Medical Office Building Surgery [facility] [address], [address] [place] [address] Edi Robles MD [address] [place] [address] Fusion of joint (Primary Dx) Social History Tobacco Use Types [...] PM EDT documented as of this encounter Last Filed Vital Signs Vital Sign Reading Time Taken Comments Blood Pressure 110/84 09/10/2020 2:46 PM EDT Pulse 67 09/10/2020 2:46 PM EDT Temperature - - Respiratory Rate - - Oxygen Saturation - - Inhaled Oxygen Concentration - - Weight 62.1 kg (137 lb) 09/10/2020 2:46 PM EDT Height 167.6 cm (5' 6 ) 09/10/2020 2:46 PM EDT Body Mass Index 22.11 09/10/2020 2:46 PM EDT documented in this encounter Miscellaneous Notes * Progress Notes - Edi Robles MD - 09/10/2020 2:10 PM EDT Patient is doing well status post right knee cemented fusion of her 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 Past medical history, surgical, social, family, history, medications, and allergies were all reviewed in the intake questionnaire. Patient completed a 15 point review of systems which is scanned into the medical documentation. Pertinent positives and negatives are listed in history of present illness. Patient is pleasant with normal affect. They are awake, alert, oriented and in no acute distress. Skin exam shows no sign of abnormal change. Cardiopulmonary examination shows a regular rate and rhythm with no respiratory difficulty on room air. Her right knee exam shows a healed wound there is no motion circulation motor and sensation are intact X-rays show a healed cemented fusion of the right knee Assessment doing well status post healed cemented fusion right knee patient will follow-up p.r.n. documented in this encounter Plan of Treatment Not on file documented as of this encounter Visit Diagnoses Diagnosis Fusion of joint- Primary Ankylosis of joint, site unspecified documented in this encounter Additional Health Concerns Infection Onset Date Last Indicated Resolved Time MRSA Comment:MRSA (methicillin resistant Staphylococcus aureus) 04/17/2020 05/21/2022 Assessment Noted Time A fall risk assessment has been complete d for the patient 09/10/2020 2:45 PM EDT documented as of this encounter Care Teams Exhaust Emissions Inspector Relationship Specialty Start Date End Date Blu Birmingham MD [address] [place] [id number] PCP - General 08/16/20 03/11/21 documented as of this encounter
[2024-03-11 10:53] LABS: Alanine Aminotransferase 33 U/L (12-78); Albumin Level 3.1 g/dl (3.5-5.0); Albumin/Globulin Ratio 1.2 (1.1-1.8); Alkaline Phosphatase 202 U/L (38-126); Anion Gap 8.8 mEq/L (5-15); Aspartate Amino Transferase 81 U/L (14-36); Bilirubin,Total 0.8 mg/dl (0.2-1.3); Blood Urea Nitrogen 14 mg/dl (7-17); Calcium 8.6 mg/dl (8.4-10.2); Carbon Dioxide 23 mmol/L (22.0-30.0); Chloride 107 mmol/L (98-107); Cholesterol 63 mg/dl (140-200); Estimated Glomerular Filt Rate 55 ml/min (>60); GFR (African American) 67 ML/MIN (>60); Globulin 2.6 g/dL (1.3-3.2); Glucose 94 mg/dl (74-100); HDL Cholesterol 32 mg/dl (40-60); Potassium 3.8 mmoL/L (3.5-5.1); Sodium 135 mmol/L (136-145); Total Protein,Serum 5.7 g/dl (6.3-8.2); Triglycerides 48 mg/dl (30-150); VLDL Cholesterol 10 mg/dL (0-40)
[2024-03-11 11:06] LABS: Direct LDL Cholesterol < 30.00 mg/dL (100-129)
[2024-03-11 11:23] LABS: Thyroid Stimulating Hormone 2.82 uIU/mL (0.465-4.68)
== END 2024-03-11 23:59 | disposition home or self-care (01) ==
PROVIDERS: PCP Family Medicine; Visit Provider Family Medicine
DX: E03.9 Hypothyroidism, unspecified (principal); E78.5 Hyperlipidemia, unspecified
CPT/HCPCS: 36415; 80053; 80061; 84443

== ENCOUNTER 2024-04-25 16:39 | Outpatient (CLI) | payer BC, MEDICARE, SELFPAY ==
--- NOTE | 2024-04-25 16:45 | XR_ITS ---
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 Views: 2 views. COMPARISON: CT ABDOMEN PELVIS W CON 08/16/2023 5:54 PM FINDINGS: Bones/joints: There is no evidence of acute fracture or dislocation. There is mild diffuse osteopenia. There are mild degenerative changes of the right sacroiliac joint. There are mild degenerative changes of the hip joint. Patient is status post amputation of the femur at the level of the junction of the proximal and middle 1/3. The AP projection suggests subtle rarefaction of the distal cortex rendering it difficult to exclude erosive change/osteomyelitis. Soft tissues: No significant soft tissue edema. No subcutaneous emphysema or radiopaque foreign bodies. IMPRESSION: 1. No acute posttraumatic osseous injury. 2. Status post amputation of the femur at the level of the junction of the proximal and middle 1/3. The AP projection suggests subtle rarefaction of the distal cortex rendering it difficult to exclude erosive change/osteomyelitis.
== END 2024-04-25 23:59 | disposition home or self-care (01) ==
LOC: RAD 16:41
PROVIDERS: PCP Family Medicine; Visit Provider Family Medicine
DX: M79.604 Pain in right leg (principal)
CPT/HCPCS: 73552

== ENCOUNTER 2024-05-25 15:19 | Outpatient (CLI) | payer BC, MEDICARE, SELFPAY ==
--- NOTE | 2024-05-25 15:24 | XR_ITS ---
FINAL REPORT CLINICAL HISTORY: lt knee pain COMPARISON: None FINDINGS: AP, lateral and oblique views of the left knee were obtained. There is no prior exam for comparison which severely limits ability to interpret the findings. There is high density material within the joint, presumed ceramic type material replacing prior hardware. There is deformity of the distal femur, and the proximal tibia. The patella is displaced proximally, presumably secondary to a patellar tendon tear. The soft tissues are normal. There is no joint effusion. IMPRESSION: Lack of a prior exam or clinical history severely limits ability to interpret the findings. Postoperative changes are present with cement/ceramic material. Without other history or prior exam for comparison, it is unknown if this material is displaced. Recommend correlation with other imaging for further evaluation. Reviewed, Interpreted and Dictated by Irina Grande MD Transcribed by Daksha Hicks Authenticated and [facility]
== END 2024-05-25 23:59 | disposition home or self-care (01) ==
LOC: RAD 15:21
PROVIDERS: PCP Family Medicine; Visit Provider Orthopaedic Surgery
DX: M25.562 Pain in left knee (principal)
CPT/HCPCS: 73562

== ENCOUNTER 2024-06-08 14:00 | Outpatient (POV) | payer BC, MEDICARE, SELFPAY ==
[2024-06-08 14:25] VITALS: BP 96/72; PULSE 65; RESP 18; O2SAT 100; BMI 26.8
--- NOTE | 2024-06-08 15:14 | EXP.PAIN.OV ---
HPI Data of Consult Patient: new to practice Consult date: 06/08/24 Requesting Physician: Loly Melchor APRN Primary Care Provider: Juan José Kendall MD Consult Narrative Reason for consult: Low back pain, hip pain, right phantom pain, left knee pain History of present illness: Ms. Blair is a 68 year old female who presents today as a new patient. She is a referral from [facility] Melchor's office. Patient rates her pain today a 4 out of 10 currently however does state the pain will get worse with increased activity. Patient states she has several areas that are very painful including a history of low back pain that has gone on for years. Patient states that she does believe she had a lumbar fusion about 15 years ago and has had trouble since. She does also state that she had a right [id number] amputation several years ago after she had a total knee replacement and continued infection. Patient states that the pain is fairly constant but does have moments where it comes and goes. Patient states that she feels like her big toe along the right side is constantly burning sensation. She does also make mention that she also has chronic pain in her left knee and that she had that replaced as well. She states that she did recently just have x-ray imaging of that knee and that Dr. Melchor's office stated that we would go over the findings. Patient does state that overall she would have to say the phantom pain does seem the worst. Patient states she has tried oral medication, heat and ice and topicals with minimal relief. She states that she has had injections in the past before her prior lumbar fusion and that they did typically help and that they were some being epidurals. She denies any recent updated imaging of her low back. She states that she even tried TENS units in the past along with physical therapy that did help some and chiropractor therapy for her neck that did provide temporary relief. Patient does state that the pain is interfering with her ability perform activities of daily living. Patient does state that she is very limited on her mobility due to the above the knee amputation. Patient is interested in any help we may be able to provide. Patient does believe her last lumbar imaging was done at [facility]. She is currently managed with gabapentin and morphine from outside providers. Her Brant has been reviewed. CC: Loly Melchor APRN [facility] Disclaimer: The information contained in this section may have been updated after the patient was seen, as this information can be updated by other users. Medical History Above knee amputation of right lower extremity Surgical History History of appendectomy History of hysterectomy Family History Other No significant family history Social History (Updated 06/08/24 @ 14:28 by Michelle Abdullahi RN) Smoking Status: Never smoker alcohol intake: current alcohol intake frequency: holidays/special occasions only substance use type: denies use current occupational status: retired Travel in the last 8 weeks: None household members: spouse housing: house current occupational exposures/hazards: No caffeine: Yes Review of Systems Review of Systems Review of systems:: pertinent systems reviewed and negative unless documented below Review of systems (narrative): Review of Systems: General: No recent weight changes, no fever, no sleep disturbances Respiratory: No cough, no shortness of air, no recurring pulmonary infections Cardiovascular/peripheral vascular: No chest pain, no palpitations, no edema, no shortness of breath Gastrointestinal: No new onset incontinence, normal bowel movements reported Genitourinary: No new onset incontinence Musculoskeletal: Low back pain, right phantom leg pain, left knee pain Psychiatric: [Normal mood/affect] Neurological: [Denies weakness in extremities], [denies balance issues] Meds Home Medications and Allergies Home Medications ?Medication ?Instructions ?Recorded ?Confirmed ?Type metoclopramide HCl 10 mg tablet 10 mg PO BID Nausea & vomiting 03/06/18 06/08/24 History atorvastatin 20 mg tablet 20 mg PO HS Cholesterol 11/02/18 06/08/24 History pantoprazole 40 mg tablet,delayed 40 mg PO DAILY acid reflux 11/02/18 06/08/24 History release midodrine 10 mg tablet 10 mg PO BID hypotension 06/27/20 06/08/24 History morphine 15 mg tablet,extended 15 mg PO BIDP PRN pain 06/27/20 06/08/24 History release trazodone 50 mg tablet 50 mg PO HS sleep 06/27/20 06/08/24 History potassium chloride 10 mEq 10 meq PO BID Supplement 12/14/20 06/08/24 History capsule,extended release topiramate 50 mg tablet 50 mg PO DAILY MIGRAINES 05/19/21 06/08/24 History hyoscyamine sulfate 0.125 mg tablet 0.125 mg PO BID GI 05/20/22 06/08/24 History meloxicam 15 mg tablet 15 mg PO DAILY #30 tabs 05/25/24 06/08/24 Rx New Prescriptions to Start Prescriptions: Allergies Allergy/AdvReac Type Severity Reaction Status Date / Time amoxicillin (From Augmentin) Allergy Severe Rash Verified 05/25/24 14:26 clavulanic acid (From Allergy Severe Rash Verified 05/25/24 14:26 Augmentin) clarithromycin (From BIAXIN) Allergy Unknown Verified 05/25/24 14:26 Objective Vital signs: Pulse Resp BP Pulse Ox O2 Del Method 65 18 96/72 L 100 Room Air 06/08/24 14:25 06/08/24 14:25 06/08/24 14:25 06/08/24 14:25 06/08/24 14:25 Narrative: Physical Exam: General: Alert and oriented x3, no acute distress, pleasant and cooperative Lungs: Respirations even and unlabored, symmetrical chest expansion Eyes: PERRL Musculoskeletal: Flexion and extension of lumbar [spine] somewhat guarded secondary to pain, [antalgic gait noted] point tenderness around her lower lumbar spine approximately L4-L5 and tenderness along her right SI joint Additional findings Additional findings: FINDINGS: AP, lateral and oblique views of the left knee were obtained. There is no prior exam for comparison which severely limits ability to interpret the findings. There is high density material within the joint, presumed ceramic type material replacing prior hardware. There is deformity of the distal femur, and the proximal tibia. The patella is displaced proximally, presumably secondary to a patellar tendon tear. The soft tissues are normal. There is no joint effusion. IMPRESSION: Lack of a prior exam or clinical history severely limits ability to interpret the findings. Postoperative changes are present with cement/ceramic material. Without other history or prior exam for comparison, it is unknown if this material is displaced. Recommend correlation with other imaging for further evaluation. Reviewed, Interpreted and Dictated by Irina Grande MD Transcribed by Daksha Hicks Authenticated and [facility] Assessment and Plan *Assessment and plan (1) Lumbar back pain with radiculopathy affecting right lower extremity: Status: Acute Category: Medical Code(s): M54.16 - Radiculopathy, lumbar region (2) Low back pain: Status: Acute Category: Medical Code(s): M54.50 - Low back pain, unspecified (3) Left knee pain: Status: Acute Category: Medical Code(s): M25.562 - Pain in left knee (4) Phantom limb pain: Status: Acute Category: Medical Code(s): G54.6 - Phantom limb syndrome with pain Plan Patient does have multiple areas of pain including her low back with limited range of motion and point tenderness along her lower lumbar spine approximately L4-L5 and point tenderness along her right SI. I did discuss with the patient that I do believe she may benefit from a lumbar epidural steroid injection. Risk and benefits were discussed with the patient and she would like to proceed forward with this plan of care. I will also order the patient a compounded cream. We will reach out to [facility] and see if we can get a copy of her last lumbar imaging. Patient has tried and failed conservative therapy including continued at home stretching exercise for longer than 12 weeks with a history of physical therapy and chiropractor therapy. I did review over with her regarding her left knee x-ray imaging however did recommend that she follow-up with orthopedics. Patient acknowledges understanding agrees with plan of care. Patient has been instructed to contact the clinic with any concerns before the next appointment. Dr. Carvajal has reviewed this note and agrees with this plan of care. This note was dictated using voice recognition software and make contain errors or omissions. All injections are used with Lidocaine, Bupivacaine and Depo Medrol. Occasionally urine drug screen is needed to verify patient's compliance with our office pain contract. This is ordered based off specific treatments related to chronic pain with the potential to abuse certain medications.
== END 2024-06-08 23:59 | disposition home or self-care (01) ==
LOC: SC.PAIN 14:03
PROVIDERS: PCP Family Medicine; Visit Provider Nurse Practitioner Family
DX: M54.16 Radiculopathy, lumbar region (principal); M54.50 Low back pain, unspecified; M25.562 Pain in left knee; G54.6 Phantom limb syndrome with pain; Z73.89 Other problems related to life management difficulty; Z89.611 Acquired absence of right leg above knee
CPT/HCPCS: 99202; G0463

== ENCOUNTER 2025-02-22 08:57 | Outpatient (CLI) | payer BC, MEDICARE, SELFPAY ==
--- OUTSIDE RECORDS SUMMARY | 2023-09-09 10:30 | XMS_ITS ---
Author Organization [facility] Address [address] [facility] [address] [place] [id number] Care Team Providers Care Chemical Process Operator Name Role Phone Huma Kendall Primary Care Provider Allergies Allergen (clinical drug ingredient) Drug/Non Drug Allergy documented on EMR Reaction Allergy Type Onset Date Status clarithromycin Clarithromycin reflux Drug Allergy Active Results Component Value Reference Range Notes H-TSH Reviewed date:03/13/2024 09:04:38 AM Interpretation: Performing Lab: Notes/Report: H-Lipid Panel Reviewed date:03/13/2024 09:05:03 AM Interpretation: Performing Lab: Notes/Report: H-CMP Reviewed date:03/13/2024 09:04:49 AM Interpretation: Performing Lab: Notes/Report: REASON FOR VISIT 6 month, Needs labs, bone density screening, & colon cancer screening Medications Medication SIG (Take, Route, Frequency, Duration) Notes Start Date End Date Status Gabapentin 300 MG 2 capsule orally Two times a day 09/09/2023 Active Atorvastatin Calcium 20 MG 1 tab(s) oral ly once a day; Duration: 90 days Active oxyBUTYnin Chloride 5 MG 1 tab(s) orally 2 times a day; Duration: 90 days Active Magnesium Oxide 400 MG 1 tab(s) orally o nce a day; Duration: 30 day(s) 03/19/2022 Active Ketoconazole 2 % APPLY TOPICALLY TWIC E WEEKLY; Duration: 60 Active MS Contin 15 MG 2 tab(s) orally 2 times a day; Duration: 30 day(s) 08/24/2023 Active Zithromax Z-James 250 MG 2 pills first day then one daily for 4 days orally as directed; Duration: 5 days 06/07/2023 Not-Taking Mirtazapine 15 MG 1 tab(s) orally once a day (at bedtime); Duration: 30 day(s) Not-Taking Dicyclomine HCl 20 MG 1 tablet Orally Tw o times a day; Duration: 30 day(s) 03/23/2023 Not-Taking Metoprolol Succinate ER 50 MG TAKE 1 TABLET EVERY DAY; Duration: 90 Not-Taking Pantoprazole Sodium 40 MG TAKE 1 TABLET EVERY DAY; Duration: 90 Active Potassium Chloride ER 10 MEQ TAKE 1 CAPSULE TWICE DAILY; Duration: 90 Active Nystatin 766381 UNIT/ML 5 mL swish and s pit Mouth/Throat Four times a day 07/01/2023 Active Famciclovir 500 MG 1 tablet Orally Thre e times a day 07/15/2023 Active Topiramate 50 MG TAKE 1 TABLET TWICE DAILY; Duration: 90 Active Sucralfate 1 GM TAKE 1 TABLET TWICE DAILY ON AN EMPTY STOMACH; Duration: 60 Active Albuterol Sulfate HFA 108 (90 Base) MCG/ACT 2 puff as needed Inhalation QID and 2hrs PRN 06/07/2023 Active Linzess 145 MCG TAKE 1 CAPSULE AT LEAST 30 MINUTES BEFORE THE FIRST MEAL OF THE DAY ON AN EMPTY STOMACH ONCE A DAY; Duration: 90 Active traZODone HCl 50 MG TAKE 1 TABLET AT BEDTIME; Duration: 90 Active Hyoscyamine Sulfate 0.125 MG 1 tablet on the tongue and allow to dissolve as needed Orally every 4 hrs, prn 07/01/2023 Active Ondansetron HCl 4 MG 1 tab(s) orally thr ee times a day as needed Active Levothyroxine Sodium 25 MCG 1 tab(s) orally once a day; Duration: 90 days Active dexAMETHasone 0.5 MG/5ML swish and swall ow 5ml Orally Four times a day 09/09/2023 Active Meloxicam 7.5 MG 1 tablet Orally Once a day; Duration: 30 day(s) 11/24/2022 Active Problems Problem Type SNOMED Code ICD Code Onset Dates Problem Status W/U Status Risk Notes Problem Hypothyroidism (07843224) Hypothyroidism (E03.9) Active confirmed Vital Signs Blood pressure systolic 100 mm Hg 09/09/19 24 Blood pressure diastolic 60 mm Hg 024 Heart Rate 79 /min 09/09/2023 Height 67 in 09/09/2023 Weight 000 lbs 09/09/2023 Encounters Encounter Location Date Provider Diagnosis [facility] [address] [facility] [address] [facility] [address] [place] [id number] 09/09/2023 Huma Kendall Phantom limb pain G5 4.6 ; Stomatitis K12.1 ; Hiatal hernia K44.9 ; Gastro-esophageal reflux disease without esophagitis K21.9 ; 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 May benefit from surgical repair of her large hiatal hernia. 09/09/2023 Gastro-esophageal reflux disease without esophagitis (ICD-10 - K21.9) 09/09/2023 Failed back surgical syndrome (ICD-10 - M96.1) 09/09/2023 Dyslipidemia (ICD-10 - E78.5) 09/09/2023 Hypothyroidism (ICD-10 - E03.9) Plan Of Treatment Medication Medication Name Sig Start Date Stop Date Notes Gabapentin 300 MG 2 capsule orally Two times a day dexAMETHasone 0.5 MG/5ML swish and swall ow 5ml Orally Four times a day 09/09/2023 Treatment Notes Assessment Notes Hiatal hernia Continue workup with general surgery in [place]. May benefit from surgical repair of her large hiatal hernia. Next Appt Details Follow Up: 6 Months, Reason: Provider Name:Huma Chau trevin, 03/20/2025 03:45:00 PM, [address] [facility] [address] [facility], [address], [place], [id number], Progress Notes * Shaunna BLAIROB: 5 (69 yo F)Acc No.[id number]:09/09/2023 Progress Notes Patient: Trudi STACK Provider: Huma Kendall M.D. :1955 A ge:68 Y S ex:Female Date:09/09/2023 Address:[address] [id number] Subjective: * Chief Complaints: * 1 . 6 month. 2. Needs labs, bone density screening, & colon cancer screening. * HPI: N eurology: Verónica presents for her 6-month scheduled checkup. She is due for routine blood work. She is still having problems with phantom pain in her right lower limb. The trial of Tegretol was unsuccessful. She is back on gabapentin and would like to try titrating her dose. E NT/respiratory: She is still complaining of a sore tongue. She had slight improvement with the nystatin but symptoms never completely resolved. G astroenterology: She went to the emergency room with severe abdominal pain last month and was diagnosed with a large hiatal hernia. She was subsequently referred to general surgery in [place] and is scheduled for an upper GI and barium swallow. She is complaining of a lot of heartburn and dysphagia. * ROS: D ERMATOLOGY: no R param. n o H catalino. G ASTROENTEROLOGY: no N ausea. n o V omiting. U ROLOGY: no D ifficulty urinating. n o B lood in urine. 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 * Surgical History: B ilateral Feet-Plantar Fasciitis , Conization 1988, Total Hysterectomy 2000, RT Breast Biopsy- Benign 1986, Bilateral L3-4-5 Laminectomies 08/09/2008, RT Knee Replacement- Dr Shay Burgos 07/2016, RT Patella Tendon Repair- Dr Burgos 08/13/2016, C-Scope 2015, LT Knee Replacement- Dr Guerrero 02/2018, LT Patella Tendon Repair- Dr. Guerrero 03/2018, LT Patella Reconstruction- Dr. Guerrero 06/2018, Patellectomy 08/31/2018, RT Patella Repair 01/2019, RT Knee Arthrodesis, Dr. Robles 2019, RT AKA/ Margaret 02/2021, Cholecystectomy - 05/22/2022. * Hospitalization/Major Diagno stic Procedure: K nee- [facility] 09/08/2006, Back Surgery- [facility] 08/09/2008, AMS-kidney failure, UTI- [facility] 03/2015, [facility] 08/31-10/06-2018, [facility] 10/06-01/2019, Proteus urinary Tract Infection- [facility] 06/27/2020. * Family History: F ather: , heart disease, ID age 50. M other: alive, breast cancer and female cancer-possibly cervical. P aternal Grand Mother: diabetes. 1 sister(s) - healthy. 1 son(s) - healthy. . * Social History: C URRENT TOBACCO USE S moking Status: Patient does NOT smoke. C affeine: yes, frequency:. Exercise: yes. Home smoke detector use: yes. Marital Status: . Occupation: 3M. Past smoking status: no, Smoking status: Does not smoke. Recreational drug use: no. Alcohol: no. has not been Out of the country in the past 6 months. * Medications: T aking Atorvastatin Calcium 20 MG Tablet 1 tab(s) orally once a day , Taking oxyBUTYnin Chloride 5 MG Tablet 1 tab(s) orally 2 times a day , Taking Magnesium Oxide 400 MG Tablet 1 tab(s) orally once a day , Taking Ketoconazole 2 % Shampoo APPLY TOPICALLY TWICE WEEKLY , Taking Meloxicam 7.5 MG Tablet 1 tablet Orally Once a day , Taking Ondansetron HCl 4 MG Tablet 1 tab(s) orally three times a day as needed , Taking Levothyroxine Sodium 25 MCG Tablet 1 tab(s) orally once a day , Taking Sucralfate 1 GM Tablet TAKE 1 TABLET TWICE DAILY ON AN EMPTY STOMACH , Taking Albuterol Sulfate HFA 108 (90 Base) MCG/ACT Aerosol Solution 2 puff as needed Inhalation QID and 2hrs PRN , Taking Linzess 145 MCG Capsule TAKE 1 CAPSULE AT LEAST 30 MINUTES BEFORE THE FIRST MEAL OF THE DAY ON AN EMPTY STOMACH ONCE A DAY , Taking traZODone HCl 50 MG Tablet TAKE 1 TABLET AT BEDTIME , Taking Hyoscyamine Sulfate 0.125 MG Tablet Disintegrating 1 tablet on the tongue and allow to dissolve as needed Orally every 4 hrs, prn , Taking Nystatin 820479 UNIT/ML Suspension 5 mL swish and spit Mouth/Throat Four times a day , Taking Famciclovir 500 MG Tablet 1 tablet Orally Three times a day , Taking Gabapentin 300 MG Capsule 1 cap(s) morning; 2 caps at bedtime orally , Taking Topiramate 50 MG Tablet TAKE 1 TABLET TWICE DAILY , Taking Pantoprazole Sodium 40 MG Tablet Delayed Release TAKE 1 TABLET EVERY DAY , Taking Potassium Chloride ER 10 MEQ Capsule Extended Release TAKE 1 CAPSULE TWICE DAILY , Taking MS Contin 15 MG Tablet Extended Release 2 tab(s) orally 2 times a day , Not-Taking Zithromax Z-James 250 MG Tablet 2 pills first day then one daily for 4 days orally as directed , Not-Taking Mirtazapine 15 MG Tablet 1 tab(s) orally once a day (at bedtime) , Not-Taking Dicyclomine HCl 20 MG Tablet 1 tablet Orally Two times a day , Not-Taking Metoprolol Succinate ER 50 MG Tablet Extended Release 24 Hour TAKE 1 TABLET EVERY DAY , Medication List reviewed and reconciled with the patient * Allergies: C larithromycin: reflux. Objective: * Vitals: W t:000, Temp:98.1, BP:100/60, HR:79, Nurse:[place], Ht: 67. * Examination: C ardiology: General Appearance: S he comes in by wheelchair accompanied by her . Affect is good.. H EENT: S calp shows no redness or scaling.. C arotid upstroke: n ormal, no bruits. H eart sounds: R RR, normal S1, S2. M urmur, click , gallop: n one. L ungs: c lear, no rales or wheezes. A bdomen: O bese, soft, nondistended. Mild epigastric tenderness. E xtremities: R ight AK amputation. Left leg with no edema. Assessment: * Assessment: 1. P hantom limb pain - G54.6 (Primary) 2 . S tomatitis - K12.1 ?3. H iatal hernia - K44.9 4 . G anisa-esophageal reflux disease without esophagitis - K21.9 5 . F alison back surgical syndrome - M96.1 6. D yslipidemia - E78.5 7 . H ypothyroidism - E03.9 Plan: * Treatment: 2. S tomatitis Start dexAMETHasone Solution, 0.5 MG/5ML, swish and swallow 5ml, Orally, Four times a day, 200 ml.? 3. H iatal hernia Notes: Continue workup with general surgery in [place]. May benefit from surgical repair of her large hiatal hernia. * Labs: * L ab: H-Lipid Panel (Collection Date & Time - 03/13/2024) ?Lab: H-CMP (Collection Date & Time - 03/13/2024)* see duplicate order ?Lab: H-TSH (Collection Date & Time - 03/13/2024)* see duplicate order * Follow Up: 6 Months * Images: Billing Information: * Visit Code: 03723 Office Visit, Est Pt., Level 3. * Procedure Codes: * Electronic signature of Huma Kendall MD on 02/22/2025 at 09:26 AM EST Sign off status: Pending * Provider: Huma Kendall M.D. Date: 0 09/09/2023 Generated for Manuelito franco/Cruzito/Mingo on: 1 04/24/2024 09:26 AM EST History and Physical Notes * Examination Category Sub-Category Detail Notes Category Not es Cardiology Lungs: clear, no rales or wheezes HEENT: Scalp shows no redne ss or scaling. Heart sounds: RRR, normal S1, S2 Abdomen: Obese, soft, nondist ended. Mild epigastric tenderness Carotid upstroke: normal, no bruits Extremities: Right AK amputation. Left leg with no edema Murmur, click , gallop: none General Appearance: She comes in by whee lchair accompanied by her . Affect is good.
--- OUTSIDE RECORDS SUMMARY | 2024-03-16 10:30 | XMS_ITS ---
Author Organization [facility] Address [address] [facility] [address] [place] [phone] Care Team Providers Care Elevator Runner Name Role Phone Huma Kendall Primary Care Provider Allergies Allergen (clinical drug ingredient) Drug/Non Drug Allergy documented on EMR Reaction Allergy Type Onset Date Status clarithromycin Clarithromycin reflux Drug Allergy Active REASON FOR VISIT check up 6 months, Needs bone density screening, colon cancer screening, & flu vaccine Medications Medication SIG (Take, Route, Frequency, Duration) Notes Start Date End Date Status Meloxicam 7.5 MG 1 tablet Orally Once a day 11/24/2022 Active Gabapentin 300 MG 2 capsule orally Two times a day 03/16/2024 Active Ondansetron HCl 4 MG 1 tab(s) orally thr ee times a day as needed Active Linzess 290 MCG TAKE 1 CAPSULE AT LEAST 30 MINUTES BEFORE THE FIRST MEAL OF THE DAY ON AN EMPTY STOMACH ONCE A DAY Orally Active Metoprolol Succinate ER 50 MG TAKE 1 TABLET EVERY DAY; Duration: 90 Not-Taking Famciclovir 500 MG 1 tablet Orally Thre e times a day 07/15/2023 Not-Taking Zithromax Z-James 250 MG 2 pills first day then one daily for 4 days orally as directed; Duration: 5 days 06/07/2023 Not-Taking Nystatin 290434 UNIT/ML 5 mL swish and s pit Mouth/Throat Four times a day 07/01/2023 Not-Taking Mirtazapine 15 MG 1 tab(s) orally once a day (at bedtime); Duration: 30 day(s) Not-Taking Dicyclomine HCl 20 MG 1 tablet Orally Tw o times a day; Duration: 30 day(s) 03/23/2023 Not-Taking hydrOXYzine HCl 25 MG 1 tablet as needed Orally three times a day as needed for itching 10/15/2023 Not-Taking MS Contin 15 MG 2 tab(s) orally 2 times a day; Duration: 30 day(s) 03/10/2024 Active Ketoconazole 2 % APPLY TOPICALLY TWIC E WEEKLY; Duration: 60 Not-Taking Sucralfate 1 GM TAKE 1 TABLET TWICE DAILY ON AN EMPTY STOMACH; Duration: 90 Active Levothyroxine Sodium 25 MCG 1 tab(s) orally once a day; Duration: 90 days Active Pantoprazole Sodium 40 MG TAKE 1 TABLET EVERY DAY; Duration: 90 Active traZODone HCl 50 MG TAKE 1 TABLET AT BEDTIME; Duration: 90 Active Potassium Chloride ER 10 MEQ TAKE 1 CAPSULE TWICE DAILY; Duration: 90 Active oxyBUTYnin Chloride 5 MG 1 tab(s) orally 2 times a day; Duration: 90 days Active Hyoscyamine Sulfate 0.125 MG 1 tablet on the tongue and allow to dissolve as needed Orally every 4 hrs, prn 07/01/2023 Active Topiramate 50 MG TAKE 1 TABLET TWICE DAILY; Duration: 90 Active Albuterol Sulfate HFA 108 (90 Base) MCG/ACT 2 puff as needed Inhalation QID and 2hrs PRN 06/07/2023 Active Magnesium Oxide 400 MG 1 tab(s) orally T wo times a day 03/19/2022 Active Atorvastatin Calcium 10 MG 1 tablet Oral ly Once a day 03/16/2024 Active Problems Problem Type SNOMED Code ICD Code Onset Dates Problem Status W/U Status Risk Notes Problem Osteoarthritis (286107585) Osteoarthritis (M19.90) Active confirmed Problem Gastroparesis (766138328) Gastroparesis (K31.84) Active confirmed Problem Drug-induced constipation (26114045) Drug-induced constipation (K59.03) Active confirmed Problem Hypolipidemia (834471433) Hypolipidemia (E78.6) Active confirmed Vital Signs Weight 000 lbs 03/16/2024 Blood pressure systolic 122 mm Hg 03/16/20 24 Blood pressure diastolic 78 mm Hg 024 Heart Rate 73 /min 03/16/2024 Height 67 in 03/16/2024 Encounters Encounter Location Date Provider Diagnosis [facility] [address] [facility] [address] [facility] [address] [place] [phone] 03/16/2024 Huma Kendall Osteoarthritis M19.9 0 ; Phantom limb pain G54.6 ; Dyslipidemia E78.5 ; Gastroparesis K31.84 ; Drug-induced constipation K59.03 and Hypolipidemia E78.6 Assessments Encounter Date Diagnosis (ICD Code) Assessment Notes Treatment Notes Treatment Clinical Notes Section Notes 03/16/2024 Osteoarthritis (ICD-10 - M19.90) 03/16/2024 Phantom limb pain (ICD-10 - G54.6) 03/16/2024 Dyslipidemia (ICD-10 - E78.5) 03/16/2024 Gastroparesis (ICD-10 - K31.84) 03/16/2024 Drug-induced constipation (ICD-10 - K59.03) 03/16/2024 Hypolipidemia (ICD-10 - E78.6) Plan Of Treatment Medication Medication Name Sig Start Date Stop Date Notes Meloxicam 7.5 MG 1 tablet Orally Once a day 11/24/2022 Gabapentin 300 MG 2 capsule orally Two times a day 03/16/2024 Ondansetron HCl 4 MG 1 tab(s) orally thr ee times a day as needed Linzess 290 MCG TAKE 1 CAPSULE AT LE AST 30 MINUTES BEFORE THE FIRST MEAL OF THE DAY ON AN EMPTY STOMACH ONCE A DAY Orally Atorvastatin Calcium 10 MG 1 tablet Orally Once a day 03/05 Atorvastatin Calcium 20 MG 1 tab(s) oral ly once a day; Duration: 90 days Next Appt Details Follow Up: 6 Months, Reason: Provider Name:Huma Dias, 03/20/2025 03:45:00 PM, [address] [facility] [address] [facility], [address], [place], [id number], Progress Notes * Shaunna BLAIROB: (69 yo F)Acc No.[id number]:03/16/2024 Patient: Trudi STACK Provider: Huma Kendall M.D. :1955 A ge:68 Y S ex:Female Date:03/16/2024 Address:[address], [place], [id number] Subjective: * Chief Complaints: * 1 . Check up 6 months. 2. Needs bone density screening, colon cancer screening, & flu vaccine. * HPI: E ndocrinology: Pt sts that she has episodes of dizziness and sts that she takes glucose tablets but they don't work really fast. Pt sts that she feels like she will pass out at times. Pt sts that at the detention she was given orange juice and it really helped. Maintenance P t presents today for a 6 month check up. S houlder/Upper arm: c/o shoulder pain P t c/o pain in the right shoulder and right arm. Pt sts that she does not know if it is arthritis or something else. Pt sts that she also has bilateral thumb pain. D ermatology: c/o mole P t sts that she has a mole on her back that itches. Pts sts that it does not look any different but she sts that it itches a lot. H PI: Pt sts that her mouth stays dry. P ain: Pt sts that her phantom pains have got really bad and have been continuous. * ROS: D ERMATOLOGY: no R param. [...] 2019, RT AKA/ Margaret 02/2021, Cholecystectomy - 05/22/2022, Hiatal Hernia Repair/ Dr. Patel/ [facility] 11/09/2023. * Hospitalization/Major Diagno stic Procedure: K nee- [facility] 09/08/2006, Back Surgery- [facility] 08/09/2008, AMS-kidney failure, UTI- [facility] 03/2015, [facility] 08/31-10/06-2018, [facility] 10/06-01/2019, Proteus urinary Tract Infection- [facility] 06/27/2020. * Family History: F ather: , heart disease, [place] age 50. M other: alive, breast cancer [...] past 6 months. * Medications: T aking Magnesium Oxide 400 MG Tablet 1 tab(s) orally Two times a day , Taking Ondansetron HCl 4 MG Tablet 1 tab(s) orally three times a day as needed , Taking Albuterol Sulfate HFA 108 (90 Base) MCG/ACT Aerosol Solution 2 puff as needed Inhalation QID and 2hrs PRN , Taking Linzess 145 MCG Capsule TAKE 1 CAPSULE AT LEAST 30 MINUTES BEFORE THE FIRST MEAL OF THE DAY ON AN EMPTY STOMACH ONCE A DAY , Taking Topiramate 50 MG Tablet TAKE 1 TABLET TWICE DAILY , Taking Pantoprazole Sodium 40 MG Tablet Delayed Release TAKE 1 TABLET EVERY DAY , Taking Potassium Chloride ER 10 MEQ Capsule Extended Release TAKE 1 CAPSULE TWICE DAILY , Taking oxyBUTYnin Chloride 5 MG Tablet 1 tab(s) orally 2 times a day , Taking traZODone HCl 50 MG Tablet TAKE 1 TABLET AT BEDTIME , Taking Gabapentin 300 MG Capsule 2 capsule orally Two times a day , Taking Hyoscyamine Sulfate 0.125 MG Tablet Disintegrating 1 tablet on the tongue and allow to dissolve as needed Orally every 4 hrs, prn , Taking Sucralfate 1 GM Tablet TAKE 1 TABLET TWICE DAILY ON AN EMPTY STOMACH , Taking Levothyroxine Sodium 25 MCG Tablet 1 tab(s) orally once a day , Taking Atorvastatin Calcium 20 MG Tablet 1 tab(s) orally once a day , Taking MS Contin 15 MG Tablet Extended Release 2 tab(s) orally 2 times a day , Not-Taking hydrOXYzine HCl 25 MG Tablet 1 tablet as needed Orally three times a day as needed for itching , Not-Taking Meloxicam 7.5 MG Tablet 1 tablet Orally Once a day , Not-Taking Ketoconazole 2 % Shampoo APPLY TOPICALLY TWICE WEEKLY , Not-Taking Nystatin 910007 UNIT/ML Suspension 5 mL swish and spit Mouth/Throat Four times a day , Not-Taking Famciclovir 500 MG Tablet 1 tablet Orally Three times a day , Not-Taking Zithromax Z-James [...] larithromycin: reflux. Objective: * Vitals: W t:000, Temp:98.0, BP:122/78, HR:73, Nurse:ORVILLE, Ht: 67. * Examination: C ardiology: General Appearance: S he comes o n power scooter a ccompanied by her . Affect is good. . H EENT: S calp shows no redness or scaling.. C arotid upstroke: n ormal, no bruits. H eart sounds: R RR, normal S1, S2. M urmur, click , gallop: n one. L ungs: c lear, no rales or wheezes. A bdomen: O bese, soft, nondistended. Mild epigastric tenderness. E xtremities: R ight AK amputation. Left leg with no edema. No acute joint swelling of deformity of RUE. D ermatology: Trunk: 8 mm raised flesh coloted neoplasm over right posterolateral rib cage. Mildly excoriated. No redness or induration. Assessment: * Assessment: 1. O steoarthritis - M19.90 (Primary) 2 . P hantom limb pain - G54.6 ? 3 . D yslipidemia - E78.5 4 . G astroparesis - K31.84 ?5. D rug-induced constipation - K59.03 6 . H ypolipidemia - E78.6 ? Plan: * Treatment: 2. P hantom limb pain Refill Gabapentin Capsule, 300 MG, 2 capsule, orally, Two times a day, 120, Refills 2. 3. D yslipidemia Stop Atorvastatin Calcium Tablet, 20 MG, 1 tab(s), orally, once a day, 90 days, 90 Tablet; S tart Atorvastatin Calcium Tablet, 10 MG, 1 tablet, Orally, Once a day, 90, Refills 1. 4. G astroparesis Refill Ondansetron HCl Tablet, 4 MG, 1 tab(s), orally, three times a day as needed, 30, Refills 2.? 5. D rug-induced constipation Increase Linzess Capsule, 290 MCG, TAKE 1 CAPSULE AT LEAST 30 MINUTES BEFORE THE FIRST MEAL OF THE DAY ON AN EMPTY STOMACH ONCE A DAY, Orally, 90 Capsule, Refills 1. * Procedure Codes: G 2211 Complex e/m visit add on * Follow Up: 6 Months * Images: Billing Information: * Visit Code: 12540 Office Visit, Est Pt., Level 4. * Procedure Codes: G2211 Complex e/m visit add on. * Electronic signature of Huma Kendall MD on 02/22/2025 at 09:10 AM EST Sign off status: Pending * Provider: Huma Kendall M.D. Date: 05/17/2023 Generated for Manuelito franco/Cruzito/Mingo on: 04/24/2024 09:10 AM EST History and Physical Notes * HPI (History of Present Illness) Category Sub-Category Detail Notes Category Not es Dermatology mole Pt sts that she has a mole on her back that itches. Pts sts that it does not look any different but she sts that it itches a lot Endocrinology Maintenance Pt presents toda y for a 6 month check up Shoulder/Upper arm shoulder pain Pt c/o pain i n the right shoulder and right arm. Pt sts that she does not know if it is arthritis or something else. Pt sts that she also has bilateral thumb pain Examination Category Sub-Category Detail Notes Category Not es Cardiology Lungs: clear, no rales or wheezes HEENT: Scalp shows no redne ss or scaling. Heart sounds: RRR, normal S1, S2 Abdomen: Obese, soft, nondist ended. Mild epigastric tenderness Carotid upstroke: normal, no bruits Extremities: Right AK amputation. Left leg with no edema. No acute joint swelling of deformity of RUE Murmur, click , gallop: none General Appearance: She comes on power s cooter accompanied by her . Affect is good. Dermatology Trunk: 8mm raised flesh coloted neoplasm over right posterolateral rib cage. Mildly excoriated. No redness or induration
--- OUTSIDE RECORDS SUMMARY | 2024-04-25 10:30 | XMS_ITS ---
Author Organization [facility] Address [address] [place] [id number] Care Team Providers Care Print Designer Name Role Phone Huma Kendall Primary Care Provider [phone] Allergies Allergen (clinical drug ingredient) Drug/Non Drug Allergy documented on EMR Reaction Allergy Type Onset Date Status clarithromycin Clarithromycin reflux Drug Allergy Active Results Component Value Reference Range Notes CBC Fingerstick (in house) Reviewed date:04/25/2024 04:30:17 PM Interpretation:rbc 2.91, hgb 8.9, hct 27.1 Performing Lab: Notes/Report: rbc 2.91, hgb 8.9, hct 27.1 wbc 3.5 3.5 - 10 lym 22.5 15 - 50 mid 6.3 2 - 15 gran 71.2 35 - 80 rbc 2.91 3.5 - 5.5 hgb 8.9 11.5 - 16.5 hct 27.1 35 - 55 mcv 93.3 75 - 100 mch 30.7 25 - 35 mchc 32.9 31 - 38 plat 122 100 - 400 P-Vitamin B12 Reviewed date:04/27/2024 06:11:11 PM Interpretation:Normal Performing Lab: Notes/Report: Test performed by [facility], [facility] [address] [place] [address] , [address], [place] [address] Charly Kapoor MD, Emergency Care Attendant CLIA: [id number] Vitamin B12 755 347-1241 pg/mL L-H-Piwckuww Protein (CRP) Reviewed date:04/27/2024 06:11:12 PM Interpretation:Normal Performing Lab: Notes/Report: Test performed by [facility] , [address], [place] [address] Charly Kapoor MD, Emergency Care Attendant CLIA: [id number] C-Reactive Protein (CRP) 0.21 <0.50 mg/dL P-Folate Reviewed date:04/27/2024 06:11:12 PM Interpretation:Normal Performing Lab: Notes/Report: Test performed by [facility] , [address], [place] [address] Charly Kapoor MD, Emergency Care Attendant CLIA: [id number] Folate 7.62 >4.59 ng/mL P-Reticulocyte Count Reviewed date:04/27/2024 06:11:12 PM Interpretation:Normal Performing Lab: Notes/Report: Test performed by [employer] [address] , [place] [address] Charly Kapoor MD, Emergency Care Attendant CLIA: [id number] Reticulocyte Count 0.8 0.5-2.1 % P-Iron Binding Cap Reviewed date:04/27/2024 06:11:12 PM Interpretation:220 Performing Lab: Notes/Report: Test performed by [facility] [facility] , [address], [place] [address] Charly Kapoor MD, Emergency Care Attendant CLIA: [id number] Iron Binding Cap 220 250-450 ug/dL P-Iron Reviewed date:04/27/2024 06:11:12 PM Interpretation:Normal Performing Lab: Notes/Report: Test performed by [employer] [address] , [address], [place] [address] Charly Kapoor MD, Emergency Care Attendant CLIA: [id number] Iron 43 37-145 ug/dL Percent Saturation Reviewed date:04/27/2024 06:11:12 PM Interpretation:Normal Performing Lab: Notes/Report: Test performed by [employer] [address] , [address], [place] [address] Charly Kapoor MD, Emergency Care Attendant CLIA: [id number] Percent Saturation 20 15-50 % X ray : Femur, right Reviewed date:05/01/2024 09:10:03 AM Interpretation: Performing Lab: Notes/Report: REASON FOR VISIT leg pain & congestion Medications Medication SIG (Take, Route, Frequency, Duration) Notes Start Date End Date Status oxyBUTYnin Chloride 5 MG 1 tab(s) orally 2 times a day; Duration: 90 days Active Potassium Chloride ER 10 MEQ TAKE 1 CAPSULE TWICE DAILY; Duration: 90 Active Pantoprazole Sodium 40 MG TAKE 1 TABLET EVERY DAY; Duration: 90 Active Topiramate 50 MG TAKE 1 TABLET TWICE DAILY; Duration: 90 Active Albuterol Sulfate HFA 108 (90 Base) MCG/ACT 2 puff as needed Inhalation QID and 2hrs PRN 06/07/2023 Active Metoprolol Succinate ER 50 MG TAKE 1 TABLET EVERY DAY; Duration: 90 Not-Taking Dicyclomine HCl 20 MG 1 tablet Orally Tw o times a day; Duration: 30 day(s) 03/23/2023 Not-Taking Cyskjvzlx-Deoksbfg-MP 30-2-10 MG/5ML 5-10 ml Orally four times a day as needed 04/25/2024 Active Magnesium Oxide 400 MG 1 tab(s) orally T wo times a day 03/19/2022 Active Doxycycline Hyclate 100 MG 1 tablet Oral ly Two times a day 04/25/2024 Active Ketoconazole 2 % APPLY TOPICALLY TWIC E WEEKLY; Duration: 60 Not-Taking hydrOXYzine HCl 25 MG 1 tablet as needed Orally three times a day as needed for itching 10/15/2023 Not-Taking Mirtazapine 15 MG 1 tab(s) orally once a day (at bedtime); Duration: 30 day(s) Not-Taking Zithromax Z-James 250 MG 2 pills first day then one daily for 4 days orally as directed; Duration: 5 days 06/07/2023 Not-Taking Famciclovir 500 MG 1 tablet Orally Thre e times a day 07/15/2023 Not-Taking traZODone HCl 50 MG TAKE 1 TABLET AT BEDTIME; Duration: 90 Active Nystatin 633903 UNIT/ML 5 mL swish and s pit Mouth/Throat Four times a day 07/01/2023 Active MS Contin 15 MG 2 tab(s) orally 2 times a day; Duration: 30 day(s) 04/07/2024 Active Atorvastatin Calcium 10 MG 1 tablet Oral ly Once a day 03/16/2024 Active Linzess 290 MCG TAKE 1 CAPSULE AT LEAST 30 MINUTES BEFORE THE FIRST MEAL OF THE DAY ON AN EMPTY STOMACH ONCE A DAY Orally Active Sucralfate 1 GM TAKE 1 TABLET TWICE DAILY ON AN EMPTY STOMACH; Duration: 90 Active Gabapentin 300 MG 2 capsule orally Two times a day 03/16/2024 Active Ondansetron HCl 4 MG 1 tab(s) orally thr ee times a day as needed Active Meloxicam 7.5 MG 1 tablet Orally Once a day 11/24/2022 Active Levothyroxine Sodium 25 MCG 1 tab(s) orally once a day; Duration: 90 days Active Hyoscyamine Sulfate 0.125 MG 1 tablet on the tongue and allow to dissolve as needed Orally every 4 hrs, prn 07/01/2023 Active Problems Problem Type SNOMED Code ICD Code Onset Dates Problem Status W/U Status Risk Notes Problem Anemia (297646871) Anemia (D64.9) Active confirmed Vital Signs Blood pressure systolic 116 mm Hg 04/25/19 25 Blood pressure diastolic 62 mm Hg 025 Heart Rate 76 /min 04/25/2024 Height 67 in 04/25/2024 Weight 000 lbs 04/25/2024 Encounters Encounter Location Date Provider Diagnosis [facility] [address] [id number] 04/25/2024 R Ranjeet Kendall Leg pain, right M79.604 ; URI (upper respiratory infection) J06.9 and Anemia D64.9 Assessments Encounter Date Diagnosis (ICD Code) Assessment Notes Treatment Notes Treatment Clinical Notes Section Notes 04/25/2024 Leg pain, right (ICD-10 - M79.604) Obtain x-ray to rule out osteomyelitis 04/25/2024 URI (upper respiratory infection) (ICD-10 - J06.9) 04/25/2024 Anemia (ICD-10 - D64.9) No obvious source of blood loss. She denies melena, hematochezia, hematuria. No abdominal pain or nausea. Check anemia labs. She is also provided a Hemoccult test kit to obtain stool sample at home and return to office Plan Of Treatment Medication Medication Name Sig Start Date Stop Date Notes Wtxhsyouq-Cqpxfcrs-KE 30-2-1 0 MG/5ML 5-10 ml Orally four times a day as needed 04/25/2024 Doxycycline Hyclate 100 MG 1 tablet Oral ly Two times a day 04/25/2024 Treatment Notes Assessment Notes Leg pain, right Obtain x-ray to rule out osteomyelitis Anemia No obvious source of blood loss. She denies melena, hematochezia, hematuria. No abdominal pain or nausea. Check anemia labs. She is also provided a Hemoccult test kit to obtain stool sample at home and return to office Next Appt Details Follow Up: via phone to repo rt test results, Reason: Provider Name:Huma Dias, 03/20/2025 03:45:00 PM, [address] [facility] [address], [address], [place], [id number], Progress Notes * Shaunna BLAIROB: 5 (69 yo F)Acc No.[id number]:04/25/2024 Progress Notes Patient: Trudi STACK Provider: Huma Kendall M.D. :1955 A ge:68 Y S ex:Female Date:04/25/2024 Address:[address] [place] [address], [place], [id number] Subjective: * Chief Complaints: * 1 . Leg pain & congestion. * HPI: K nee/Antunez: 68 year old female presents with c/o Above Knee Amputation A nd has been having increasing pain in her stump. She attributes the pain to the excessive amount of soft tissue causing traction over the end of the bone. She denies swelling, redness, or warmth of the stump. . E NT/respiratory: c/o sore throat. c/o nasal congestion P t sts that she has some nasal drainage. Pt c/o cough, chest congestion. Pt sts that her nasal drainage is yellow. Pt sts that has lost her taste from having thrush. c/o chest congestion. * ROS: D ERMATOLOGY: no R param. [...] - 05/22/2022, Hiatal Hernia Repair/ Dr. Patel/ [place] 11/09/2023. * Hospitalization/Major Diagno stic Procedure: K nee- [facility] 09/08/2006, Back Surgery- [facility] 08/09/2008, AMS-kidney failure, UTI- [facility] 03/2015, [facility] 08/31-10/06-2018, [facility] [place], Proteus urinary Tract Infection- [facility] 06/27/2020. * Family History: F ather: , heart disease, [place] age 50. M other: alive, breast cancer [...] orally Two times a day , Taking Albuterol Sulfate HFA 108 (90 Base) MCG/ACT Aerosol Solution 2 puff as needed Inhalation QID and 2hrs PRN , Taking Topiramate 50 MG Tablet TAKE 1 TABLET TWICE DAILY , Taking Pantoprazole Sodium 40 MG Tablet Delayed Release TAKE 1 TABLET EVERY DAY , Taking Potassium Chloride ER 10 MEQ Capsule Extended Release TAKE 1 CAPSULE TWICE DAILY , Taking oxyBUTYnin Chloride 5 MG Tablet 1 tab(s) orally 2 times a day , Taking Hyoscyamine Sulfate 0.125 MG Tablet Disintegrating 1 tablet on the tongue and allow to dissolve as needed Orally every 4 hrs, prn , Taking Sucralfate 1 GM Tablet TAKE 1 TABLET TWICE DAILY ON AN EMPTY STOMACH , Taking Levothyroxine Sodium 25 MCG Tablet 1 tab(s) orally once a day , Taking Meloxicam 7.5 MG Tablet 1 tablet Orally Once a day , Taking Ondansetron HCl 4 MG Tablet 1 tab(s) orally three times a day as needed , Taking Gabapentin 300 MG Capsule 2 capsule orally Two times a day , Taking Linzess 290 MCG Capsule TAKE 1 CAPSULE AT LEAST 30 MINUTES BEFORE THE FIRST MEAL OF THE DAY ON AN EMPTY STOMACH ONCE A DAY Orally , Taking Atorvastatin Calcium 10 MG Tablet 1 tablet Orally Once a day , Taking MS Contin 15 MG Tablet Extended Release 2 tab(s) orally 2 times a day , Taking Nystatin 056302 UNIT/ML Suspension 5 mL swish and spit Mouth/Throat Four times a day , Taking traZODone HCl 50 MG Tablet TAKE 1 TABLET AT BEDTIME , Not-Taking hydrOXYzine HCl 25 MG Tablet 1 tablet as needed Orally three times a day as needed for itching , Not-Taking Ketoconazole 2 % Shampoo APPLY TOPICALLY TWICE WEEKLY , Not-Taking Famciclovir 500 MG Tablet 1 [...] larithromycin: reflux. Objective: * Vitals: W t:000, Temp:98.2, BP:116/62, HR:76, Nurse:[place], Ht: 67. * Examination: E NT/Respiratory: Nose : congested. O ral cavity : mild erythema of throat. No evidence of thrush. N mackenzie : n o cervical lymphadenopathy. H eart :?RRR, normal S1 S2, no murmurs. L ungs: c lear to auscultation bilaterally. E xtremities : E xam of the right stump shows no redness, induration, or warmth. There is thinning of the skin over the end of the bone with moderate tenderness.. Assessment: * Assessment: 1. L eg pain, right - M79.604 (Primary) 2 . U RI (upper respiratory infection) - J06.9 3 . A nemia - D64.9 Plan: * Treatment: Value Reference Range C -Reactive Protein (CRP) 0.21 <0.50 - mg/dL * Huma Kendall 04/27/2024 6 :10:58 PM >See phone encounter ?Imaging: X ray : Femur, right (Performed Date - 05/01/2024)* see duplicate order Notes: Obtain x-ray to rule out osteomyelitis??2.?URI (upper respiratory infection)? Start Doxycycline Hyclate Tablet, 100 MG, 1 tablet, Orally, Two times a day, 14;?Start Vfbdtzrva-Vnikwntu-TV Syrup, 30-2-10 MG/5ML, 5-10 ml, Orally, four times a day as needed, 180 ml.?LAB: CBC Fingerstick (in house) (Collection Date & Time - 04/25/2024)?rbc 2.91, hgb 8.9, hct 27.1* Value Reference Range w bc 3.5 3.5 - 10 * l ym 22.5 15 - 50 * m id 6.3 2 - 15 * g ran 71.2 35 - 80 * r bc 2.91 3.5 - 5.5 * h gb 8.9 11.5 - 16.5 * h ct 27.1 35 - 55 * m cv 93.3 75 - 100 * m ch 30.7 25 - 35 * m chc 32.9 31 - 38 * p lat 122 100 - 400 * Nanda Jordan 04/25/2024 4:29 :20 PM > results reviewed w/ pt in office 3.?Anemia?LAB: P-Vitamin B12 (Collection Date & Time - 04/25/2024 03:30 PM)?Normal* Value Reference Range V itamin B12 577 348-4739 - pg/mL * Huma Kendall 04/27/2024 6 :10:58 PM >See phone encounter ?LAB: P-Folate (Collection Date & Time - 04/25/2024 03:30 PM)?Normal* Value Reference Range F olate 7.62 >4.59 - ng/mL * Huma Kendall 04/27/2024 6 :10:58 PM >See phone encounter ?LAB: P-Reticulocyte Count (Collection Date & Time - 04/25/2024 03:30 PM)? Normal* Value Reference Range R eticulocyte Count 0.8 0.5-2.1 - % * Huma Kendall 04/27/2024 6 :10:58 PM >See phone encounter ?LAB: P-Iron Binding Cap (Collection Date & Time - 04/25/2024 03:30 PM)?220 * Value Reference Range I lopez Binding Cap 220 L 250-450 - ug/dL * Huma Kendall 04/27/2024 6 :10:58 PM >See phone encounter ?LAB: P-Iron (Collection Date & Time - 04/25/2024 03:30 PM)?Normal* Value Reference Range I lopez 43 37-145 - ug/dL * Huma Kendall 04/27/2024 6 :10:58 PM >See phone encounter Notes: No obvious source of blood loss. She denies melena, hematochezia, hematuria. No abdominal pain or nausea. Check anemia labs. She is also provided a Hemoccult test kit to obtain stool sample athome and return to office?? * Labs: * L ab: Percent Saturation (Collection Date & Time - 04/25/2024 03:30 PM) N ormal Value Reference Range P ercent Saturation 20 15-50 - % * [facility], IT support 04/27/2024 05:55:02 : This order was created by the Interface. Huma Kendall 04/27/2024 6:10:58 PM >See phone encounter * Procedure Codes: 3 6416 CAPILLARY BLOOD DRAW, 69199 CBC WITH AUTO DIFF * Follow Up: v ia phone to report test results * Images: Billing Information: * Visit Code: 80425 Office Visit, Est Pt., Level 4. * Procedure Codes: 54893 CAPILLARY BLOOD DRAW. 92945 CBC WITH AUTO DIFF. * Electronic signature of Huma Kendall MD on 02/22/2025 at 09:35 AM EST Sign off status: Pending * Provider: Huma Kendall M.D. Date: 0 04/25/2024 Generated for Preethii joan/Cruzito/eTransmitting on: 04/24/2024 09:35 AM EST History and Physical Notes * HPI (History of Present Illness) Category Sub-Category Detail Notes Category Not es ENT/respiratory sore throat chest congestion nasal congestion Pt sts that she has some nasal drainage. Pt c/o cough, chest congestion. Pt sts that her nasal drainage is yellow. Pt sts that has lost her taste from having thrush Knee/Antunez Above Knee Amputation And has be en having increasing pain in her stump. She attributes the pain to the excessive amount of soft tissue causing traction over the end of the bone. She denies swelling, redness, or warmth of the stump. Examination Category Sub-Category Detail Notes Category Not es ENT/Respiratory Oral cavity : mild erythema of throat. No evidence of thrush Neck : no cervical lymphade nopathy Heart : RRR, normal S1 S2, n o murmurs Lungs: clear to auscultatio n bilaterally Extremities : Exam of the right st ump shows no redness, induration, or warmth. There is thinning of the skin over the end of the bone with moderate tenderness. Nose : congested
--- OUTSIDE RECORDS SUMMARY | 2024-05-01 09:55 | XMS_ITS ---
Author Organization [facility] Address [address] [facility] [address] [place] [id number] Care Team Providers Care Moisture Meter Reader Name Role Phone Huma Kendall Primary Care Provider Results Component Value Reference Range Notes Hemoccult- IFOBT (in house) Reviewed date:05/15/2024 01:46:22 PM Interpretation:Negative Performing Lab: Notes/Report: Negative results Neg REASON FOR VISIT stool sample Medications Medication SIG (Take, Route, Frequency, Duration) Notes Start Date End Date Status hydrOXYzine HCl 25 MG 1 tablet as needed Orally three times a day as needed for itching 10/15/2023 Not-Taking Famciclovir 500 MG 1 tablet Orally Thre e times a day 07/15/2023 Not-Taking Ketoconazole 2 % APPLY TOPICALLY TWIC E WEEKLY; Duration: 60 Not-Taking Zithromax Z-James 250 MG 2 pills first day then one daily for 4 days orally as directed; Duration: 5 days 06/07/2023 Not-Taking Mirtazapine 15 MG 1 tab(s) orally once a day (at bedtime); Duration: 30 day(s) Not-Taking Doxycycline Hyclate 100 MG 1 tablet Oral ly Two times a day 04/25/2024 Active traZODone HCl 50 MG TAKE 1 TABLET AT BEDTIME; Duration: 90 Active Kyrlxqhjd-Alhzzspb-RU 30-2-10 MG/5ML 5-10 ml Orally four times a day as needed 04/25/2024 Active Nystatin 066125 UNIT/ML 5 mL swish and s pit Mouth/Throat Four times a day 07/01/2023 Active MS Contin 15 MG 2 tab(s) orally 2 times a day; Duration: 30 day(s) 04/07/2024 Active Ondansetron HCl 4 MG 1 tab(s) orally thr ee times a day as needed Active Meloxicam 7.5 MG 1 tablet Orally Once a day 11/24/2022 Active Gabapentin 300 MG 2 capsule orally Two times a day 03/16/2024 Active Atorvastatin Calcium 10 MG 1 tablet Oral ly Once a day 03/16/2024 Active Linzess 290 MCG TAKE 1 CAPSULE AT LEAST 30 MINUTES BEFORE THE FIRST MEAL OF THE DAY ON AN EMPTY STOMACH ONCE A DAY Orally Active Hyoscyamine Sulfate 0.125 MG 1 tablet on the tongue and allow to dissolve as needed Orally every 4 hrs, prn 07/01/2023 Active oxyBUTYnin Chloride 5 MG 1 tab(s) orally 2 times a day; Duration: 90 days Active Levothyroxine Sodium 25 MCG 1 tab(s) orally once a day; Duration: 90 days Active Sucralfate 1 GM TAKE 1 TABLET TWICE DAILY ON AN EMPTY STOMACH; Duration: 90 Active Potassium Chloride ER 10 MEQ TAKE 1 CAPSULE TWICE DAILY; Duration: 90 Active Magnesium Oxide 400 MG 1 tab(s) orally T wo times a day 03/19/2022 Active Topiramate 50 MG TAKE 1 TABLET TWICE DAILY; Duration: 90 Active Albuterol Sulfate HFA 108 (90 Base) MCG/ACT 2 puff as needed Inhalation QID and 2hrs PRN 06/07/2023 Active Pantoprazole Sodium 40 MG TAKE 1 TABLET EVERY DAY; Duration: 90 Active Metoprolol Succinate ER 50 MG TAKE 1 TABLET EVERY DAY; Duration: 90 Not-Taking Dicyclomine HCl 20 MG 1 tablet Orally Tw o times a day; Duration: 30 day(s) 03/23/2023 Not-Taking Encounters Encounter Location Date Provider Diagnosis [facility] [address] [place] [id number] 05/01/2024 Huma Kendall Acute anemia D64.9 Assessments Encounter Date Diagnosis (ICD Code) Assessment Notes Treatment Notes Treatment Clinical Notes Section Notes 05/01/2024 Acute anemia (ICD-10 - D64.9) Plan Of Treatment Next Appt Details Provider Name:Huma Dias, 03/20/2025 03:45:00 PM, [facility] [address], [place], [id number], Progress Notes * Shaunna BLAIROB: 5 (69 yo F)Acc No.[id number]:05/01/2024 Patient: Trudi STACK Provider: Huma Kendall M.D. :1955 A ge:68 Y S ex:Female Date:05/01/2024 Address:[address] [place] [address] [address], [place], [id number] Subjective: * Chief Complaints: * 1 . Stool sample. * Medical History: * Medications: T aking Magnesium Oxide 400 [...] 2 times a day , Taking Nystatin 039889 UNIT/ML Suspension 5 mL swish and spit Mouth/Throat Four times a day , Taking traZODone HCl 50 MG Tablet TAKE 1 TABLET AT BEDTIME , Taking Doxycycline Hyclate 100 MG Tablet 1 tablet Orally Two times a day , Taking Nmrbuypbi-Gzrmdevy-KG 30-2-10 MG/5ML Syrup 5-10 ml Orally four times a day as needed , Not-Taking hydrOXYzine HCl 25 MG Tablet [...] List reviewed and reconciled with the patient Objective: * Vitals: Assessment: * Assessment: 1. A cute anemia - D64.9 (Primary) Plan: * Treatment: Value Reference Range r esults Neg * Daniela Encarnacion 05/01/2024 3:34:41 PM >Huma Kendall 05/15/2024 1:45:54 PM > See phone encounter * Procedure Codes: 8 2274 ASSAY TEST FOR BLOOD, FECAL, Modifiers: QW * Images: Billing Information: * Visit Code: * Procedure Codes: 85168 ASSAY TEST FOR BLOOD, FECAL. Modifiers: QW * Electronic signature of Huma Kendall MD on 02/22/2025 at 09:31 AM EST Sign off status: Pending * Provider: Huma Kendall M.D. Date: 0 05/01/2024 Generated for Manuelito franco/Cruzito/Mingo on: 04/24/2024 09:31 AM EST
--- OUTSIDE RECORDS SUMMARY | 2024-06-22 10:45 | XMS_ITS ---
Author Organization [facility] Address [address] [facility] [address] [facility] [address] [place] [phone] Care Team Providers Care Phone Counselor Name Role Phone Huma Kendall Primary Care Provider Allergies Allergen (clinical drug ingredient) Drug/Non Drug Allergy documented on EMR Reaction Allergy Type Onset Date Status clarithromycin Clarithromycin reflux Drug Allergy Active Results Component Value Reference Range Notes CBC Fingerstick (in house) Reviewed date:06/30/2024 11:33:15 AM Interpretation:Hgb 10.5, Hct 31.1 Performing Lab: Notes/Report: Hgb 10.5, Hct 31.1 wbc 5.1 3.5 - 10 lym 29.2 15 - 50 mid 7.3 2 - 15 gran 63.5 35 - 80 rbc 3.38 3.5 - 5.5 hgb 10.5 11.5 - 16.5 hct 31.1 35 - 55 mcv 92.0 75 - 100 mch 31.2 25 - 35 mchc 33.9 31 - 38 REASON FOR VISIT CBC Encounters Encounter Location Date Provider Diagnosis [facility] [address] [facility] [address] [facility] [address] [place] [id number] 06/22/2024 Huma Kendall Anemia D64.9 Assessments Encounter Date Diagnosis (ICD Code) Assessment Notes Treatment Notes Treatment Clinical Notes Section Notes 06/22/2024 Anemia (ICD-10 - D64.9) Plan Of Treatment Next Appt Details Provider Name:Huma Dias, 03/20/2025 03:45:00 PM, [address] [facility] [address] [facility], [address], [place], [phone], Progress Notes * Shaunna BLAIROB: (69 yo F)Acc No.[id number]:06/22/2024 Patient: Trudi STACK Provider: Huma Kendall M.D. :1955 A ge:68 Y S ex:Female Date:06/22/2024 Address:[address] [place] [address] [address] [place], [id number] Subjective: * Chief Complaints: * 1 . CBC. 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 * Allergies: C larithromycin: reflux. Objective: * Vitals: Assessment: * Assessment: 1. A nemia - D64.9 (Primary) Plan: * Treatment: Value Reference Range w bc 5.1 3.5 - 10 * l ym 29.2 15 - 50 * m id 7.3 2 - 15 * g ran 63.5 35 - 80 * r bc 3.38 3.5 - 5.5 * h gb 10.5 11.5 - 16.5 * h ct 31.1 35 - 55 * m cv 92.0 75 - 100 * m ch 31.2 25 - 35 * m chc 33.9 31 - 38 * Huma Kendall 06/30/2024 1 1:33:06 AM > See phone encounter * Procedure Codes: 8 5025 CBC WITH AUTO DIFF, 38227 CAPILLARY BLOOD DRAW * Images: Billing Information: * Visit Code: * Procedure Codes: 49743 CBC WITH AUTO DIFF. 11218 CAPILLARY BLOOD DRAW. * Electronic signature of Huma Kendall MD on 02/22/2025 at 09:33 AM EST Sign off status: Pending * Provider: Huma Kendall M.D. Date: 0 06/22/2024 Generated for Printi ng/Faxing/eTransmitting on: 1 04/24/2024 09:33 AM EST
--- OUTSIDE RECORDS SUMMARY | 2024-09-12 10:45 | XMS_ITS ---
[facility] Address [address] [place] [id number] Care Team Providers Care Junior Data Analyst Name Role Phone Huma Kendall Primary Care Provider [phone] Allergies Allergen (clinical drug ingredient) Drug/Non Drug Allergy documented on EMR Reaction Allergy Type Onset Date Status clarithromycin Clarithromycin reflux Drug Allergy Active REASON FOR VISIT 6 month check, Needs labs, bone density screening, & colon cancer screening Medications Medication SIG (Take, Route, Frequency, Duration) Notes Start Date End Date Status Hyoscyamine Sulfate 0.125 MG 1 tablet on the tongue and allow to dissolve as needed Orally every 4 hrs, prn 07/01/2023 Active Albuterol Sulfate HFA 108 (90 Base) MCG/ACT 2 puff as needed Inhalation QID and 2hrs PRN 06/07/2023 Active Topiramate 50 MG TAKE 1 TABLET TWICE DAILY; Duration: 90 Active Gabapentin 300 MG 3 capsule Orally twi ce a day; Duration: 30 days 09/13/2024 Active Magnesium Oxide 400 MG 1 tab(s) orally T wo times a day 03/19/2022 Active MS Contin 30 MG 1 tablet Orally Two times a day; Duration: 30 days 09/13/2024 Active hydrOXYzine HCl 25 MG 1 tablet as needed Orally three times a day as needed for itching 10/15/2023 Not-Taking Ketoconazole 2 % APPLY TOPICALLY TWIC E WEEKLY; Duration: 60 Not-Taking Mirtazapine 15 MG 1 tab(s) orally once a day (at bedtime); Duration: 30 day(s) Not-Taking Linzess 290 MCG TAKE 1 CAPSULE AT LEAST 30 MINUTES BEFORE THE FIRST MEAL OF THE DAY ON AN EMPTY STOMACH ONCE A DAY; Duration: 90 Active Potassium Chloride ER 10 MEQ TAKE 1 CAPSULE TWICE DAILY; Duration: 90 Active Meloxicam 15 MG 1 tablet Orally Once a day Active Pantoprazole Sodium 40 MG TAKE 1 TABLET EVERY DAY; Duration: 90 Active Levothyroxine Sodium 25 MCG TAKE 1 TABLET EVERY DAY; Duration: 90 Active Sucralfate 1 GM TAKE 1 TABLET TWICE DAILY ON AN EMPTY STOMACH; Duration: 90 Active Ondansetron HCl 4 MG 1 tab(s) orally thr ee times a day as needed Active traZODone HCl 50 MG TAKE 1 TABLET AT BEDTIME; Duration: 90 Active oxyBUTYnin Chloride 5 MG TAKE 1 TABLET T WICE DAILY; Duration: 90 Active Atorvastatin Calcium 20 MG TAKE 1 TABLET EVERY DAY; Duration: 90 Active Problems Problem Type SNOMED Code ICD Code Onset Dates Problem Status W/U Status Risk Notes Problem Burning mouth syndrome (825824079) 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) Active confirmed Problem Chronic kidney disease stage 3A (disorder) (331848817) CKD stage 3a, GFR 45-59 ml/min (N18.31) Active confirmed Vital Signs Weight 000 lbs 09/12/2024 Blood pressure systolic 110 mm Hg 09/13/19 25 Blood pressure diastolic 68 mm Hg 025 Heart Rate 65 /min 09/12/2024 Height 67 in 09/12/2024 Encounters Encounter Location Date Provider Diagnosis [facility] [facility] [address] [id number] 09/12/2024 R Ranjeet Kendall Phantom limb pain G5 4.6 ; Irritable bowel syndrome with constipation K58.1 ; 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 Consider follow-up appointment with pain management 09/12/2024 Irritable bowel syndrome with constipation (ICD-10 - K58.1) 09/12/2024 Failed back surgical syndrome (ICD-10 - M96.1) 09/12/2024 Chronic pain syndrome (ICD-10 - G89.4) 09/12/2024 Postlaminectomy syndrome, not elsewhere classified (ICD-10 - M96.1) 09/12/2024 Gastro-esophageal reflux disease without esophagitis (ICD-10 - K21.9) 09/12/2024 Burning mouth syndrome (ICD-10 - K14.6) Avoidance of offending foods 09/12/2024 SK (seborrheic keratosis) (ICD-10 - L82.1) 09/12/2024 Anemia (ICD-10 - D64.9) 09/12/2024 Hypothyroidism (ICD-10 - E03.9) 09/12/2024 Dyslipidemia (ICD-10 - E78.5) 09/12/2024 CKD stage 3a, GFR 45-59 ml/min (ICD-10 - N18.31) Plan Of Treatment Medication Medication Name Sig Start Date Stop Date Notes Hyoscyamine Sulfate 0.125 MG 1 tablet on the tongue and allow to dissolve as needed Orally every 4 hrs, prn 07/01/2023 Topiramate 50 MG TAKE 1 TABLET TWICE DAILY; Duration: 90 Gabapentin 300 MG 3 capsule Orally twi ce a day; Duration: 30 days 09/13/2024 MS Contin 30 MG 1 tablet Orally Two times a day; Duration: 30 days 09/13/2024 Linzess 290 MCG TAKE 1 CAPSULE AT LE AST 30 MINUTES BEFORE THE FIRST MEAL OF THE DAY ON AN EMPTY STOMACH ONCE A DAY; Duration: 90 Gabapentin 300 MG 2 capsule orally Two times a day 09/13/2024 Meloxicam 15 MG 1 tablet Orally Once a day Treatment Notes Assessment Notes Phantom limb pain Increase gabapentin. Consider follow-up appointment with pain management Burning mouth syndrome Avoidance of offe nding foods Pending Test Test Name Order Date H-TSH 09/12/2024 H-CBC 09/12/2024 H-Lipid Panel 09/12/2024 H-CMP 09/12/2024 Next Appt Details Follow Up: 6 Months, Reason: Provider Name:Huma Dias, 03/20/2025 03:45:00 PM, [address], [address], [place], [id number], Progress Notes * Shaunna BLAIROB: 5 (69 yo F)Acc No.[id number]:09/12/2024 Progress Notes Patient: Trudi STACK Provider: Huma Kendall M.D. :1955 A ge:69 Y S ex:Female Date:09/12/2024 Address:[address] [place], [place] [address] [address], [place], [id number] Subjective: * Chief Complaints: * 1 . 6 month check. 2. Needs labs, bone density screening, & colon cancer screening. * HPI: H PI: 69 year old female presents with c/o Patient is here today for?Pt is here today for a 6 month check up. P t sts she also needs refills on some medications. D ermatology: c/o mole P t sts she has a s pot on her back that is itching and would like removed. It has been present for several months. G astroenterology: c/o Acid Reflux. c/o Heartburn. c/o Nausea P t sts she has nausea and sts its how it is before she had hernia surgery. Pt sts she has had bad heartburn and acid reflux as well that she believes is associated with the nausea, with food. L eg: c/o Leg edema P t sts she does have swelling in her leg if she is up for a long period of time and sts all she wants to do is sleep. N eurology: She continues to have problems with phantom limb pain that seems to be gradually getting worse. She is currently on gabapentin. She has seen pain management in the past and was prescribed a topical cream which gave variable relief. She also complains of a burning sensation in her mouth with certain foods and liquids. Denies oral lesions. This has been present for several months. * ROS: D ERMATOLOGY: no R param. [...] * Hospitalization/Major Diagno stic Procedure: K nee- [facility] 09/08/2006, Back Surgery- [facility] 08/09/2008, AMS-kidney failure, UTI- [facility] 03/2015, [facility] 08/31-10/06-2018, [facility] 10/06-01/2019, Proteus urinary Tract Infection- [facility] 06/27/2020. * Family History: F ather: , [...] past 6 months. * Medications: T aking Meloxicam 15 MG Tablet 1 tablet Orally Once a day , Taking Magnesium Oxide 400 MG Tablet 1 tab(s) orally Two times a day , Taking Albuterol Sulfate HFA 108 (90 Base) MCG/ACT Aerosol Solution 2 puff as needed Inhalation QID and 2hrs PRN , Taking Hyoscyamine Sulfate 0.125 MG Tablet Disintegrating 1 tablet on the tongue and allow to dissolve as needed Orally every 4 hrs, prn , Taking Sucralfate 1 GM Tablet TAKE 1 TABLET TWICE DAILY ON AN EMPTY STOMACH , Taking Ondansetron HCl 4 MG Tablet 1 tab(s) orally three times a day as needed , Taking traZODone HCl 50 MG Tablet TAKE 1 TABLET AT BEDTIME , Taking Gabapentin 300 MG Capsule 2 capsule orally Two times a day , Taking Topiramate 50 MG Tablet TAKE 1 TABLET TWICE DAILY , Taking oxyBUTYnin Chloride 5 MG Tablet TAKE 1 TABLET TWICE DAILY , Taking Atorvastatin Calcium 20 MG Tablet TAKE 1 TABLET EVERY DAY , Taking Pantoprazole Sodium 40 MG Tablet Delayed Release TAKE 1 TABLET EVERY DAY , Taking Levothyroxine Sodium 25 MCG Tablet TAKE 1 TABLET EVERY DAY , Taking MS Contin 30 MG Tablet Extended Release 1 tablet Orally Two times a day , Taking Linzess 290 MCG Capsule TAKE 1 CAPSULE AT LEAST 30 MINUTES BEFORE THE FIRST MEAL OF THE DAY ON AN EMPTY STOMACH ONCE A DAY , Taking Potassium Chloride ER 10 MEQ Capsule Extended Release TAKE 1 CAPSULE TWICE DAILY , Not-Taking hydrOXYzine HCl 25 MG Tablet 1 tablet as needed Orally three times a day as needed for itching , Not-Taking Ketoconazole 2 % Shampoo APPLY TOPICALLY TWICE WEEKLY , Not-Taking Mirtazapine 15 MG Tablet 1 tab(s) orally once a day (at bedtime) , Medication List reviewed and reconciled with the patient * Allergies: C larithromycin: reflux. Objective: * Vitals: W t: 000, Temp: 98.4, BP: 110/68, HR: 65, Nurse: ada, Ht: 67. * Examination: G eneral Examination: General Appearance: N AD. O ral cavity: u nremarkable. H eart: R SR. L ungs: c lear to auscultation. S kin: 6 mm flesh colored SK on right mid back. Assessment: * Assessment: 1. P hantom limb pain - G54.6 (Primary) 2 . I rritable bowel syndrome with constipation - K58.1 3 . F alison back surgical syndrome - M96.1 4 . C hronic pain syndrome - G89.4 5 . P ostlaminectomy syndrome, not elsewhere classified - M96.1 6 . G anisa-esophageal reflux disease without esophagitis - K21.9 7 . B urning mouth syndrome - K14.6 8 . S K (seborrheic keratosis) - L82.1 9 . A nemia - D64.9 1 0. H ypothyroidism - E03.9 1 1. D yslipidemia - E78.5 1 2. C KD stage 3a, GFR 45-59 ml/min - N18.31 Plan: * Treatment: 2. I rritable bowel syndrome with constipation Refill Hyoscyamine Sulfate Tablet Disintegrating, 0.125 MG, 1 tablet on the tongue and allow to dissolve as needed, Orally, every 4 hrs, prn, 60, Refills 5. 3. B urning mouth syndrome Notes: Avoidance of offending foods 4. O thers Refill Meloxicam Tablet, 15 MG, 1 tablet, Orally, Once a day, 90, Refills 1; R efill MS Contin Tablet Extended Release, 30 MG, 1 tablet, Orally, Two times a day, 30 days, 60 Tablet, Refills 0; Refill Linzess Capsule, 290 MCG, TAKE 1 CAPSULE AT LEAST 30 MINUTES BEFORE THE FIRST MEAL OF THE DAY ON AN EMPTY STOMACH ONCE A DAY, 90, 90 Capsule, Refills 0; R efill Topiramate Tablet, 50 MG, TAKE 1 TABLET TWICE DAILY, 90, 180 Tablet, Refills 0. * Labs: * L ab: H-Lipid Panel L ab: H-CMP L ab: H-CBC L ab: H-TSH * Procedure Codes: 1 7000 DESTRUCTION BENIGN LESION, CRYOSURGERY,ELECTROSURGERY FIRST LESION, G2211 Complex e/m visit add on, 1036F TOBACCO NON-USER, G8752 MOST RECENT SYSTOLIC BP < 140MM HG, G8754 MOST RECENT DIASTOLIC BP < 90MM HG * Follow Up: 6 Months * Images: Billing Information: * Visit Code: 39635 Office Visit, Est Pt., Level 4. Modifiers: 25 * Procedure Codes: 50760 DESTRUCTION BENIGN LESION, CRYOSURGERY,ELECTROSURGERY FIRST LESION. G2211 Complex e/m visit add on. 1036F TOBACCO NON-USER. G8752 MOST RECENT SYSTOLIC BP < 140MM HG. G8754 MOST RECENT DIASTOLIC BP < 90MM HG. * Electronic signature of Huma Kendall MD on 02/22/2025 at 09:06 AM EST Sign off status: Pending * Provider: Huma Kendall M.D. Date: 0 09/12/2024 Generated for Manuelito franco/Cruzito/Maria Teresaransmitting on: 1 04/24/2024 09:06 AM EST History and Physical Notes * HPI (History of Present Illness) Category Sub-Category Detail Notes Category Not es Neurology She also compla ins of a burning sensation in her mouth with certain foods and liquids. Denies oral lesions. This has been present for several months Dermatology mole Pt sts she has a spot on her back that is itching and would like removed. It has been present for several months Gastroenterology Nausea Pt sts she has nausea and sts its how it is before she had hernia surgery. Pt sts she has had bad heartburn and acid reflux as well that she believes is associated with the nausea, with food Heartburn Acid Reflux HPI Patient is here today for Pt is here today for a 6 month check up. Pt sts she also needs refills on some medications Leg Leg edema Pt sts she does have swelling in her leg if she is up for a long period of time and sts all she wants to do is sleep Examination Category Sub-Category Detail Notes Category Not es General Examination Heart: RSR Lungs: clear to auscultatio n General Appearance: NAD Skin: 6 mm flesh colored S K on right mid back Oral cavity: unremarkable
--- OUTSIDE RECORDS SUMMARY | 2025-02-22 09:05 | XMS_ITS | Encounter Summary ---
Author Organization [employer] ([place], [place], [place], [place], [place]) Address [address] [place] [address] Care Team Providers Care Team Supervisor Name Role Phone Juan José Kendall MD Primary Care Provider + [phone] Juan Joés Kendall MD Unavailable [phone] Encounter Details Date Type Department Care Team (Late st Contact Info) Description 09/05/2018 Transcribed Document [facility] Family Medicine [address] [place] [address] ProviderLaurie MD [address] [place] [address] Social History Tobacco Use Types Packs/Day Years [...] filedocumented in this encounter Care Teams Team Supervisor Relationship Specialty Start Date End Date Juan José Kendall MD [address] [place] [id number] PCP - General Family Medicine 12/25/22 Juan José Kendall MD [address] [place] [phone] Referring Physician Family Medicine 12/25/22 documented as of this encounter
--- OUTSIDE RECORDS SUMMARY | 2025-02-22 09:05 | XMS_ITS | Encounter Summary ---
Author Organization [employer] ([place], [place], [place], [place], [place]) Address [address] [place] [address] Care Team Providers Care Cobbler Mckay Name Role Phone Juan José Kendall MD Primary Care Provider + [phone] Juan José Kendall MD Unavailable [phone] Encounter Details Date Type Department Care Team (Late st Contact Info) Description 09/05/2018 Transcribed Document [facility] [address] [place] [address] ProviderLaurie MD [address] [place] [address] Social History Tobacco Use Types Packs/Day Years [...] Nutrition Assessment Reason : Follow Up JULIAN GARICA RD, LD - 09/05/2018 9:07 EDT Nutrition [...] + RD will add Ensure BID + [id number] daily. Goal: PO intake >50% of meals and supplements 2. Monitor wt 2x/wk goal: no significant involuntary changes in wt Nutritional Risk: high JULIAN GARCIA, RD, LD - 09/05/2018 10:10 EDT Electronically signed by [facility] Conversion Machine Erector Cerner at 07/24/2022 3:37 PM CDT documented in this encounter Plan of Treatment Not on file documented as of this encounter Visit Diagnoses Not on filedocumented in this encounter Care Teams Cobbler Mckay Relationship Specialty Start Date End Date Juan José Kendall MD [address] [employer] [address] [place] [phone] PCP - General Family Medicine 12/25/22 Juan José Kendall MD [address] [place] [phone] Referring Physician Family Medicine 12/25/22 documented as of this encounter
--- OUTSIDE RECORDS SUMMARY | 2025-02-22 09:05 | XMS_ITS | Encounter Summary ---
Author Organization [employer] ([place], [place], [place], [place], [place]) Address [address] [place] [address] Care Team Providers Care Brazer Crawler Torch Name Role Phone Juan José Kendall MD Primary Care Provider +- [phone] Juan José Kendall MD Unavailable [phone] Encounter Details Date Type Department Care Team (Late st Contact Info) Description 09/05/2018 Transcribed Document [facility] [place] [address] [place] [address] ProviderLaurie MD [address] [place] [address] Social History Tobacco Use Types Packs/Day Years Used Date Smoking Tobacco: Never Assessed Comments Unknown Sex and Gender Information Value Date Recorded Sex Assigned at Not on file Legal Sex Female 2:23 PM CDT Gender Identity Not on file Sexual Orientation Not on file documented as of this encounter Miscellaneous Notes * Cerner Conversion Note - Laurie Garcia MD - 09/05/2018 1:00 AM CDT Pain Assessment [...] form. Electronically signed by Adia Fink Conversion Manager Operations And Procurement Cerner at 07/24/2022 3:34 PM CDT documented in this encounter Plan of Treatment Not on file documented as of this encounter Visit Diagnoses Not on filedocumented in this encounter Care Teams Brazer Crawler Torch Relationship Specialty Start Date End Date Juan José Kendall MD [address] [facility] [address] [place] [phone] PCP - General Family Medicine 12/25/22 Juan José Kendall MD [address] [facility] [address] [place] [phone] Referring Physician Family Medicine 12/25/22 documented as of this encounter
--- OUTSIDE RECORDS SUMMARY | 2025-02-22 09:05 | XMS_ITS | Encounter Summary ---
Author Organization [employer] ([place], [place], [place], [place]) Address [address] [place] [address] Care Team Providers Care Marriage And Family Teacher Name Role Phone Juan José Kendall MD Primary Care Provider +- [phone] Juan José Kendall MD Unavailable [phone] Encounter Details Date Type Department Care Team (Late st Contact Info) Description 09/05/2018 Transcribed Document [facility] Family Medicine [facility] [place] [address] ProviderLaurie MD [address] [place] [address] Social History Tobacco Use Types Packs/Day Years Used Date Smoking Tobacco: Never Assessed Comments Unknown Sex and Gender Information Value Date Recorded Sex Assigned at Not on file Legal Sex Female 2:23 PM CDT Gender Identity Not on file Sexual Orientation Not on file documented as of this encounter Miscellaneous Notes * Cerner Conversion Note - Laurie ProviderMD - 09/05/2018 5:36 PM CDT Patient: [...] getting wound care. She was [place] [facility] [place] higher level of care. [...] 50 mL - 700 mg, IV Piggyback, [id number], infuse over 30 Minute(s) Cardiovascular metoprolol (Lopressor) [...] SpO2 96 (SEP 05 06:15) 96 (SEP 02 18:20) 98 (SEP 05 02:15) Gen: NAD. [...] 03) 188 (SEPTEMBER 01) Na 143 (SEP 03) 146 (SEP 04) 144 (SEP 03) 146 (SEPTEMBER 02) K L 3.2 (SEP 05) L 3.2 (SEP 05) L 3.1 (SEP 04) L 3.2 (SEP 04) Cl 111 (SEP 03) H 114 (SEP 02) H 114 (SEP 03) H 115 (SEPTEMBER 02) CO2 23 (SEP 03) 23 (SEP 04) 23 (SEP 03) 22 (SEPTEMBER 02) BUN H 26 (SEP 03) H 28 (SEP 02) H 31 (SEP 03) H 36 (SEPTEMBER [...] discharge ( unless she is discharged to [facility] rehabilitation and she can be followed by one of my partners there). clinic to call the patient with appointment instructions. 5. Could switch the patient to OPAT through [facility] when she is discharged from rehabilitation facility. 6. attention triage staff at [facility]: Please track the patient's cultures from her left knee 7. please fax copy of this note a [phone] ok to discharge to rehab whenever from my standpoint complex set of medical issues requiring a high level of medical decision making. Patient has risk for further morbidity including loss of her limb. Electronically signed by Aleks [facility] Conversion Furniture Finisher Apprentice Cerner at 07/24/2022 3:34 PM CDT documented in this encounter Plan of Treatment Not on file documented as of this encounter Visit Diagnoses Not on filedocumented in this encounter Care Teams Marriage And Family Teacher Relationship Specialty Start Date End Date Juan José Kendall MD [address] [facility] [address] [place] [phone] PCP - General Family Medicine 12/25/22 Juan José Kendall MD [address] [facility] [address] [place] [phone] Referring Physician Family Medicine 12/25/22 documented as of this encounter
--- OUTSIDE RECORDS SUMMARY | 2025-02-22 09:05 | XMS_ITS | Encounter Summary ---
Author Organization [employer] ([place], [place], [place], [place], [place]) Address [address] [place] [address] Care Team Providers Care Director Risk Name Role Phone Juan José Kendall MD Primary Care Provider + [phone] Juan José Kendall MD Unavailable [phone] Encounter Details Date Type Department Care Team (Late st Contact Info) Description 09/04/2018 Transcribed Document [facility] [place] [address] [place] [address] ProviderLaurie MD [address] [place] [address] Social History Tobacco Use Types Packs/Day Years [...] filedocumented in this encounter Care Teams Director Risk Relationship Specialty Start Date End Date Juan José Kendall MD [address] [place] [phone] PCP - General Family Medicine 12/25/22 Juan José Kendall MD [address] [place] [phone] Referring Physician Family Medicine 12/25/22 documented as of this encounter
--- OUTSIDE RECORDS SUMMARY | 2025-02-22 09:06 | XMS_ITS | Encounter Summary ---
Author Organization [employer] ([place], [place], [place], [place], [place]) Address [address] [place] [address] Care Team Providers Care Metal Bed Assembler Name Role Phone Juan José Kendall MD Primary Care Provider + [phone] Juan José Kendall MD Unavailable [phone] Encounter Details Date Type Department Care Team (Late st Contact Info) Description 09/04/2018 Transcribed Document [facility] [place] [address] [place] [address] ProviderLaurie MD [address] [place] [address] Social History Tobacco Use Types Packs/Day Years [...] 09/04/2018 16:39 EDT Electronically signed by [facility] Conversion Block Making Machine Operator Cerbridget at 07/24/2022 3:52 PM CDT documented in this encounter Plan of Treatment Not on file documented as of this encounter Visit Diagnoses Not on filedocumented in this encounter Care Teams Metal Bed Assembler Relationship Specialty Start Date End Date Juan José Kendall MD [address] [facility] [address] [place] [phone] PCP - General Family Medicine 12/25/22 Juan José Kendall MD [facility] [address] [place] [phone] Referring Physician Family Medicine 12/25/22 documented as of this encounter
--- OUTSIDE RECORDS SUMMARY | 2025-02-22 09:06 | XMS_ITS | Encounter Summary ---
Author Organization [employer] ([place], [place], [place], [place], [place]) Address [address] [place] [address] Care Team Providers Care French Weaver Name Role Phone Juan José Kendall MD Primary Care Provider +- [phone] Juan José Kendall MD Unavailable [phone] Encounter Details Date Type Department Care Team (Late st Contact Info) Description 09/14/2018 Transcribed Document [facility] [place] [address] ProviderLaurie MD [address] [place] [address] Social History Tobacco Use Types Packs/Day Years [...] was taken to the OR by Dr. Balthrop for tendon repair. She was more recently admitted to [facility] x[facility] earlier this month on [...] wound care. She was [place] [facility] [place] [...] HTN Cancer Social History: . lives in [place]. No tobacco, ETOH, or illicit drug use. [...] 09) Glu R 93 (EDGARD 12) 93 (SEP 11) 80 (SEP 10) 79 (SEP 11) Ca L 8.2 (SEP 14) L 8.2 (SEP 13) 8.4 (SEP 12) 8.5 (SEP 11) AST 14 (SEP 10) 11 (SEP 09) ALT L 7 (SEP 10) L 8 (SEP 09) ALK P 95 [...] with her today Electronically signed by Aleks [facility] Conversion Installation Superintendent Byron at 07/24/2022 3:58 PM CDT documented in this encounter Plan of Treatment Not on file documented as of this encounter Visit Diagnoses Not on filedocumented in this encounter Care Teams French Weaver Relationship Specialty Start Date End Date Juan José Kendall MD [address] [facility] [address] [place] [phone] PCP - General Family Medicine 12/25/22 Juan José Kendall MD [address] [facility] [address] [place] [phone] Referring Physician Family Medicine 12/25/22 documented as of this encounter
--- OUTSIDE RECORDS SUMMARY | 2025-02-22 09:06 | XMS_ITS | Encounter Summary ---
Author Organization [employer] ([place], [place], [place], [place], [place]) Address [address] [place] [address] Care Team Providers Care Senior Linux Engineer Name Role Phone Juan José Kendall MD Primary Care Provider + [phone] Juan José Kendall MD Unavailable [phone] Encounter Details Date Type Department Care Team (Late st Contact Info) Description 09/04/2018 Transcribed Document [facility] [place] [address] [place] [address] ProviderLaurie MD [address] [place] [address] Social History Tobacco Use Types Packs/Day Years [...] Janae Alonso Rn - 09/04/2018 17:10 EDT Electronically signed by Aleks [facility] Conversion Terrazzo Tile Setter Cerner at 07/24/2022 3:55 PM CDT documented in this encounter Plan of Treatment Not on file documented as of this encounter Visit Diagnoses Not on filedocumented in this encounter Care Teams Senior Linux Engineer Relationship Specialty Start Date End Date Juan José Kendall MD [address] [facility] [address] [place] [address] PCP - General Family Medicine 12/25/22 Juan José Kendall MD [address] [place] [address] Referring Physician Family Medicine 12/25/22 documented as of this encounter
--- OUTSIDE RECORDS SUMMARY | 2025-02-22 09:06 | XMS_ITS | Encounter Summary ---
Author Organization [employer] ([place], [place], [place], [place], [place]) Address [address] [place] [address] Care Team Providers Care Fast Food Services Manager Name Role Phone Juan José Kendall MD Primary Care Provider +- [phone] Juan José Kendall MD Unavailable +[phone] Encounter Details Date Type Department Care Team (Late st Contact Info) Description 09/04/2018 Transcribed Document [facility] [place] [address] [place] [address] ProviderLaurie MD [address] [place] [address] Social History Tobacco Use Types Packs/Day Years Used Date Smoking Tobacco: Never Assessed Comments Unknown Sex and Gender Information Value Date Recorded Sex Assigned at Not on file Legal Sex Female 2:23 PM CDT Gender Identity Not on file Sexual Orientation Not on file documented as of this encounter Miscellaneous Notes * Cerner Conversion Note - Laurie ProviderMD - 09/04/2018 2:00 AM CDT Steam Hoist Operator Details Entered On: 09/04/2018 3:11 EDT Performed [...] 09/04/2018 3:11 EDT Electronically signed by Aleks [facility] Conversion Lottery Manager Cerner at 07/24/2022 3:44 PM CDT documented in this encounter Plan of Treatment Not on file documented as of this encounter Visit Diagnoses Not on filedocumented in this encounter Care Teams Fast Food Services Manager Relationship Specialty Start Date End Date Juan José Kendall MD [address] [facility] [address] [place] [id number] PCP - General Family Medicine 12/25/22 Juan José Kendall MD [address] [facility] [address] [place] [id number] Referring Physician Family Medicine 12/25/22 documented as of this encounter
--- OUTSIDE RECORDS SUMMARY | 2025-02-22 09:06 | XMS_ITS | Encounter Summary ---
Author Organization [employer] ([place], [place], [place], [place], [place]) Address [address] [place] [address] Care Team Providers Care Senior Buyer Name Role Phone Juan José Kendall MD Primary Care Provider +- [phone] Juan José Kendall MD Unavailable [phone] Encounter Details Date Type Department Care Team (Late st Contact Info) Description 09/05/2018 Transcribed Document [facility] [place] [address] [place] [address] Laurie Garcia MD [address] [place] [address] Social History Tobacco Use Types Packs/Day Years Used Date Smoking Tobacco: Never Assessed Comments Unknown Sex and Gender Information Value Date Recorded Sex Assigned at Not on file Legal Sex Female 2:23 PM CDT Gender Identity Not on file Sexual Orientation Not on file documented as of this encounter Miscellaneous Notes * Cerner Conversion Note - Laurie ProviderMD - 09/05/2018 3:00 PM CDT [facility] Inpatient Documentation Entered On: 09/06/2018 9:50 EDT Performed On: 09/05/2018 15:00 EDT by Ritu Joseph Rn-Enterostomal [facility] Admission Date : Admit Date 08/30/2018 [...] - 09/06/2018 9:40 EDT Electronically signed by [facility] Conversion Cyanide Case Hardener Cerner at 07/24/2022 3:37 PM CDT documented in this encounter Plan of Treatment Not on file documented as of this encounter Visit Diagnoses Not on filedocumented in this encounter Care Teams Senior Buyer Relationship Specialty Start Date End Date Juan José Kendall MD [address] [facility] [address] [place] [id number] PCP - General Family Medicine 12/25/22 Juan José Kendall MD [address] [facility] [address] [place] [phone] Referring Physician Family Medicine 12/25/22 documented as of this encounter
--- OUTSIDE RECORDS SUMMARY | 2025-02-22 09:06 | XMS_ITS | Encounter Summary ---
Author Organization [employer] ([place], [place], [place], [place], [place]) Address [address] [place] [address] Care Team Providers Care Pool Installer Name Role Phone Juan José Kendall MD Primary Care Provider + [phone] Juan José Kendall MD Unavailable [phone] Encounter Details Date Type Department Care Team (Late st Contact Info) Description 09/14/2018 Transcribed Document [facility] [place] [address] [place] [address] ProviderLaurie MD [address] [place] [address] Social History Tobacco Use Types Packs/Day Years [...] Performed On: 09/14/2018 5:00 EDT by Angy Esqueda, Rn Chart Check Powerplans Initiated/Discontinued as Appropriate : Yes All Active Orders Reviewed : Yes Angy Esqueda, Emeli - 09/14/2018 3:15 EDT documented in this encounter Plan of Treatment Not on file documented as of this encounter Visit Diagnoses Not on filedocumented in this encounter Care Teams Pool Installer Relationship Specialty Start Date End Date Juan José Kendall MD [address] [place] [address] [place] [phone] PCP - General Family Medicine 12/25/22 Juan José Kendall MD [address] [place] [address] [place] [phone] Referring Physician Family Medicine 12/25/22 documented as of this encounter
--- OUTSIDE RECORDS SUMMARY | 2025-02-22 09:06 | XMS_ITS | Encounter Summary ---
Author Organization [employer] ([place], [place], [place], [place], [place]) Address [address] [place] [address] Care Team Providers Care Shoe Cutter Name Role Phone Juan José Kendall MD Primary Care Provider + [phone] Juan José Kendall MD Unavailable [phone] Encounter Details Date Type Department Care Team (Late st Contact Info) Description 09/05/2018 Transcribed Document [facility] [place] [address] [place] [address] ProviderLaurie MD [address] [place] [address] Social History Tobacco Use Types Packs/Day Years [...] All Active Orders Reviewed : Yes Anali Hicks, Emeli - 09/05/2018 4:44 EDT documented in this encounter Plan of Treatment Not on file documented as of this encounter Visit Diagnoses Not on filedocumented in this encounter Care Teams Shoe Cutter Relationship Specialty Start Date End Date Juan José Kendall MD [address] [place] [id number] PCP - General Family Medicine 12/25/22 Juan José Kendall MD [address] [place] [address] [place] [phone] Referring Physician Family Medicine 12/25/22 documented as of this encounter
--- OUTSIDE RECORDS SUMMARY | 2025-02-22 09:06 | XMS_ITS | Encounter Summary ---
Author Organization [employer] ([place], [place], [place], [place], [place]) Address [address] [place] [address] Care Team Providers Care Disease And Insect Control Boss Name Role Phone Juan José Kendall MD Primary Care Provider + [phone] Juan José Kendall MD Unavailable [phone] Encounter Details Date Type Department Care Team (Late st Contact Info) Description 09/05/2018 Transcribed Document [facility] [place] [address] [place] [address] ProviderLaurie MD [address] [place], [place] [address] Social History Tobacco Use Types Packs/Day Years Used Date Smoking Tobacco: Never Assessed Comments Unknown Sex and Gender Information Value Date Recorded Sex Assigned at Not on file Legal Sex Female 2:23 PM CDT Gender Identity Not on file Sexual Orientation Not on file documented as of this encounter Miscellaneous Notes * Cerner Conversion Note - Laurie Garcia MD - 09/05/2018 8:32 AM CDT Patient: TRUDI [...] 60 (SEP 05 06:15) L 57 (SEP 02 10:25) 63 (SEP 04 14:05) MAP 76 [...] 01) Na 143 (SEP 03) 146 (SEP 02) 144 (SEP 03) 146 [...] L 2.3 (SEP 05) L 2.0 (SEP 02) L 1.7 (SEP 03) L 1.3 (SEPTEMBER 01) Impression and Plan ARF: Cr conitues to slowly improve. nonoliguric UOP with diuresis. Cr was intially elevated to 2.4 on admit from [facility] 0.9 06/2018. pt with [...] and complexity pt Electronically signed by Interface, [facility] Conversion Encephalographer Cerner at 07/24/2022 3:38 PM CDT documented in this encounter Plan of Treatment Not on file documented as of this encounter Visit Diagnoses Not on filedocumented in this encounter Care Teams Disease And Insect Control Boss Relationship Specialty Start Date End Date Juan José Kendall MD [address] [facility] [facility] [address] [place] [phone] PCP - General Family Medicine 12/25/22 Juan José Kendall MD [address] [facility] [address] [place] [phone] Referring Physician Family Medicine 12/25/22 documented as of this encounter
--- OUTSIDE RECORDS SUMMARY | 2025-02-22 09:07 | XMS_ITS | Encounter Summary ---
Author Organization [employer] ([place], [place], [place], [place], [place]) Address [address] [place] [address] Care Team Providers Care Hand Trucker Name Role Phone Juan José Kendall MD Primary Care Provider +- [phone] Juan José Kendall MD Unavailable [phone] Encounter Details Date Type Department Care Team (Late st Contact Info) Description 09/14/2018 Transcribed Document [facility] [place] [address] [place] [address] ProviderLaurie MD [address] [place] [address] Social History Tobacco Use Types Packs/Day Years [...] filedocumented in this encounter Care Teams Hand Trucker Relationship Specialty Start Date End Date Juan José Kendall MD [address] [place] [address] [address] [place] [phone] PCP - General Family Medicine 12/25/22 Juan José Kendall MD [address] [place] [address] [address] [place] [phone] Referring Physician Family Medicine 12/25/22 documented as of this encounter
--- OUTSIDE RECORDS SUMMARY | 2025-02-22 09:07 | XMS_ITS | Encounter Summary ---
Author Organization [employer] ([place], [place], [place], [place], [place]) Address [address] [place] [address] Care Team Providers Care Box Stacker Name Role Phone Juan José Kendall MD Primary Care Provider + [phone] Juan José Kendall MD Unavailable [phone] Encounter Details Date Type Department Care Team (Late st Contact Info) Description 09/04/2018 Transcribed Document [facility] [place] Medicine [address] [place] [address] ProviderLaurei MD [address] [place], [place] [address] Social History Tobacco Use Types Packs/Day Years Used Date Smoking Tobacco: Never Assessed Comments Unknown Sex and Gender Information Value Date Recorded Sex Assigned at Not on file Legal Sex Female 2:23 PM CDT Gender Identity Not on file Sexual Orientation Not on file documented as of this encounter Miscellaneous Notes * Cerner Conversion Note - Historical ProviderMD - 09/04/2018 5:19 PM CDT Patient: [...] 14:05) 15 (SEP 04 06:02) 17 (SEP 04:46) SBP 128 (SEP 04 14:05) 120 (SEP 03 22:00) 139 (SEP 04:46) DBP 63 (SEP 04 14:05) L 46 [...] albumin ordered case discussed with in room Electronically signed by Interface, [facility] Conversion Statistical Developer Cerner at 07/24/2022 3:41 PM CDT documented in this encounter Plan of Treatment Not on file documented as of this encounter Visit Diagnoses Not on filedocumented in this encounter Care Teams Box Stacker Relationship Specialty Start Date End Date Juan José Kendall MD [address] [place] [facility] [address] [place] [phone] PCP - General Family Medicine 12/25/22 Juan José Kendall MD [address] [employer] [facility] [address] [place] [phone] Referring Physician Family Medicine 12/25/22 documented as of this encounter
--- OUTSIDE RECORDS SUMMARY | 2025-02-22 09:07 | XMS_ITS | Encounter Summary ---
Author Organization [employer] ([place], [place], [place], [place], [place]) Address [address] [place] [address] Care Team Providers Care Hazardous Material Technician Name Role Phone Juan José Kendall MD Primary Care Provider +- [phone] Juan José Kendall MD Unavailable [phone] Encounter Details Date Type Department Care Team (Late st Contact Info) Description 09/14/2018 Transcribed Document [facility] [place] [facility] [place] [address] ProviderLaurie MD [address] [place] [address] Social History Tobacco Use Types Packs/Day Years [...] Note : 09/14/2018 Clinical review faxed to [facility] ([phone]) to request coverage for continued LTACH services. Approval pending. Auth# [id number]. Care Management Note Report : Chuyita Briceno, Clinical Assessment Liaison - 09/09/18 14:03:00 Chuyita Ball Ground RN spoke with the patient and spouse [...] [facility]- Orthopedic- [facility] Natalia The patient does wish to return home upon discharge but understands that rehab/SNF may be needed. All papers were explained and signed. No other issues. CM will continue to monitor. Documentation Status Complete : Yes PJ NELSON - 09/14/2018 8:27 EDT documented in this encounter Plan of Treatment Not on file documented as of this encounter Visit Diagnoses Not on filedocumented in this encounter Care Teams Hazardous Material Technician Relationship Specialty Start [place] [address] [place] [address] [address] [place] [phone] PCP - General Family Medicine 12/25/22 Juan José Kendall MD [address] [facility] [address] [place] [phone] Referring Physician Family Medicine 12/25/22 documented as of this encounter
--- OUTSIDE RECORDS SUMMARY | 2025-02-22 09:07 | XMS_ITS | Encounter Summary ---
Author Organization [employer] ([place], [place], [place], [place], [place]) Address [address] [place] [address] Care Team Providers Care Boot Trimmer Name Role Phone Juan José Kendall MD Primary Care Provider +- [phone] Juan José Kendall MD Unavailable [phone] Encounter Details Date Type Department Care Team (Late st Contact Info) Description 09/14/2018 Transcribed Document [facility] [place] [address] [place] [address] ProviderLaurie MD [address] [place] [address] Social History Tobacco Use Types Packs/Day Years Used Date Smoking Tobacco: Never Assessed Comments Unknown Sex and Gender Information Value Date Recorded Sex Assigned at Not on file Legal Sex Female 2:23 PM CDT Gender Identity Not on file Sexual Orientation Not on file documented as of this encounter Miscellaneous Notes * Cerner Conversion Note - Laurie Garcia MD - 09/14/2018 10:16 AM CDT Interdisciplinary Rounds [...] on filedocumented in this encounter Care Teams Boot Trimmer Relationship Specialty Start Date End Date Juan José Kendall MD 12[address] [facility] [address] [place] [phone] PCP - General Family Medicine 12/25/22 Juan José Kendall MD [address] [place] [facility] [address] [place] [phone] Referring Physician Family Medicine 12/25/22 documented as of this encounter
--- OUTSIDE RECORDS SUMMARY | 2025-02-22 09:07 | XMS_ITS | Encounter Summary ---
Author Organization [employer] ([place], [place], [place], [place], [place]) Address [address] [place] [address] Care Team Providers Care Medical Review Specialist Name Role Phone Juan José Kendall MD Primary Care Provider +- [phone] Juan José Kendall MD Unavailable [phone] Encounter Details Date Type Department Care Team (Late st Contact Info) Description 09/14/2018 Transcribed Document [facility] [place] [address] [place] [address] ProviderLaurie MD [address] [place] [address] Social History Tobacco Use Types Packs/Day Years [...] on vancomycin. SCr remains 1.4-1.6 since at [facility]. 3. Abx planned until 10/05 per ID. 4. Pharmacy will continue to follow. Thank you for the consultation, Bethany Mo, SriniD Electronically signed by Aleks [facility] Conversion Title I Director Byron at 07/24/2022 3:40 PM CDT documented in this encounter Plan of Treatment Not on file documented as of this encounter Visit Diagnoses Not on filedocumented in this encounter Care Teams Medical Review Specialist Relationship Specialty Start Date End Date Juan José Kendall MD [address] [facility] [address] [place] [address] PCP - General Family Medicine 12/25/22 Juan José Kendall MD [address] [facility] [address] [place] [address] Referring Physician Family Medicine 12/25/22 documented as of this encounter
--- OUTSIDE RECORDS SUMMARY | 2025-02-22 09:07 | XMS_ITS | Encounter Summary ---
Author Organization [employer] ([place], [place], [place], [place], [place]) Address [address] [place] [address] Care Team Providers Care Cloud Solutions Architect Name Role Phone Juan José Kendall MD Primary Care Provider +- [phone] Juan José Kendall MD Unavailable [phone] Encounter Details Date Type Department Care Team (Late st Contact Info) Description 09/14/2018 Transcribed Document [facility] [place] [address] [place] [address] Laurie Garcia MD [address] [place] [address] Social History Tobacco Use Types Packs/Day Years Used Date Smoking Tobacco: Never Assessed Comments Unknown Sex and Gender Information Value Date Recorded Sex Assigned at Not on file Legal Sex Female 2:23 PM CDT Gender Identity Not on file Sexual Orientation Not on file documented as of this encounter Miscellaneous Notes * Cerner Conversion Note - Laurie Garcia MD - 09/14/2018 4:21 PM CDT [facility] Inpatient Documentation Entered On: 09/14/2018 16:21 EDT Performed On: 09/14/2018 16:21 EDT by ALEX FREY RN WO Admission Date : Admit Date 09/08/2018 18:19 [...] for dressing change switched to dior and marissaew ALEX FREY RN - 09/14/2018 16:24 EDT Wound & Pressure Ulcer WOCN Wound Pressure Ulcer Documentation : [employer]yr Abnormality: Knee Left Midline on 09/14/2018 16:18 [...] Therapy Activity: Dressing changed NPWT Device Used: dior and nephmaureen Type of Foam/Gauze Removed: Other: prevena Number [...] ALEX FREY RN - 09/14/2018 16:21 EDT documented in this encounter Plan of Treatment Not on file documented as of this encounter Visit Diagnoses Not on filedocumented in this encounter Care Teams Cloud Solutions Architect Relationship Specialty Start Date End Date Juan José Kendall MD 12[address] [facility] [address] [place] [phone] PCP - General Family Medicine 12/25/22 Juan José Kendall MD [address] [facility] [address] [place] [phone] Referring Physician Family Medicine 12/25/22 documented as of this encounter
--- OUTSIDE RECORDS SUMMARY | 2025-02-22 09:07 | XMS_ITS | Encounter Summary ---
Author Organization [employer] ([place], [place], [place], [place], [place]) Address [address] [place] [address] Care Team Providers Care Scanning Tech Name Role Phone Juan José Kendall MD Primary Care Provider + [phone] Juan José Kendall MD Unavailable [phone] Encounter Details Date Type Department Care Team (Late st Contact Info) Description 09/14/2018 Transcribed Document [facility] [place] Family Medicine [address] [place] [address] ProviderLaurie MD [address] [place] [address] Social History Tobacco Use Types Packs/Day Years [...] on filedocumented in this encounter Care Teams Scanning Tech Relationship Specialty Start Date End Date Juan José Kendall MD [address] [place] [phone] PCP - General Family Medicine 12/25/22 Juan José Kendall MD [address] [place] [address] [place] [phone] Referring Physician Family Medicine 12/25/22 documented as of this encounter
--- OUTSIDE RECORDS SUMMARY | 2025-02-22 09:07 | XMS_ITS | Encounter Summary ---
Author Organization [employer] ([place], [place], [place], [place], [place]) Address [address] [place] [address] Care Team Providers Care Computer Operator Name Role Phone Juan José Kendall MD Primary Care Provider +- [phone] Juan José Kendall MD Unavailable [phone] Encounter Details Date Type Department Care Team (Late st Contact Info) Description 09/14/2018 Transcribed Document [facility] [place] [address] [place] [address] ProviderLaurie MD [address] [place] [address] Social History Tobacco Use Types Packs/Day Years Used Date Smoking Tobacco: Never Assessed Comments Unknown Sex and Gender Information Value Date Recorded Sex Assigned at Not on file Legal Sex Female 2:23 PM CDT Gender Identity Not on file Sexual Orientation Not on file documented as of this encounter Miscellaneous Notes * Cerner Conversion Note - Laurie Garcia MD - 09/14/2018 9:00 AM CDT Pain Assessment [...] filedocumented in this encounter Care Teams Computer Operator Relationship Specialty Start Date End Date Juan José Kendall MD [address] [place] [address] [address] [place] [phone] PCP - General Family Medicine 12/25/22 Juan José Kendall MD [address] [place] [address] [address] [place] [phone] Referring Physician Family Medicine 12/25/22 documented as of this encounter
--- OUTSIDE RECORDS SUMMARY | 2025-02-22 09:07 | XMS_ITS | Encounter Summary ---
Author Organization [employer] ([place], [place], [place], [place], [place]) Address [address] [place] [address] Care Team Providers Care Platform Power Technician Name Role Phone Juan José Kendall MD Primary Care Provider + [phone] Juan José Kendall MD Unavailable [phone] Encounter Details Date Type Department Care Team (Late st Contact Info) Description 09/03/2018 Transcribed Document [facility] [place] [address] [place] [address] ProviderLaurie MD [address] [place], [place] [address] Social History Tobacco Use Types Packs/Day Years Used Date Smoking Tobacco: Never Assessed Comments Unknown Sex and Gender Information Value Date Recorded Sex Assigned at Not on file Legal Sex Female 2:23 PM CDT Gender Identity Not on file Sexual Orientation Not on file documented as of this encounter Miscellaneous Notes * Cerner Conversion Note - Historical ProviderMD - 09/03/2018 3:08 PM CDT Patient: [...] case discussed with Electronically signed by Interface, [facility] Conversion Forest Economist Cerner at 07/24/2022 3:47 PM CDT documented in this encounter Plan of Treatment Not on file documented as of this encounter Visit Diagnoses Not on filedocumented in this encounter Care Teams Platform Power Technician Relationship Specialty Start Date End Date Juan José Kendall MD [address] [place] [employer] [address] [place] [address] PCP - General Family Medicine 12/25/22 Juan José Kendall MD [address] [place] [employer] [address] [place] [address] Referring Physician Family Medicine 12/25/22 documented as of this encounter
--- OUTSIDE RECORDS SUMMARY | 2025-02-22 09:07 | XMS_ITS | Encounter Summary ---
Author Organization [employer] ([place], [place], [place], [place], [place]) Address [address] [place] [address] Care Team Providers Care Operations Intelligence Superintendent Name Role Phone Juan José Kendall MD Primary Care Provider + [phone] Juan José Kendall MD Unavailable [phone] Encounter Details Date Type Department Care Team (Late st Contact Info) Description 09/03/2018 Transcribed Document [facility] [place] [facility] [place] [address] Laurie Garcia MD [address] [place] [address] Social History Tobacco Use Types Packs/Day Years Used Date Smoking Tobacco: Never Assessed Comments Unknown Sex and Gender Information Value Date Recorded Sex Assigned at Not on file Legal Sex Female 2:23 PM CDT Gender Identity Not on file Sexual Orientation Not on file documented as of this encounter Miscellaneous Notes * Cerner Conversion Note - Laurie Garcia MD - 09/03/2018 4:56 PM CDT Patient: TRUDI [...] antibiotic placement; Hypoalbuminemia; Metabolic acidosis Author: JONES HIADLGO MD-INT Basic Information awake alert comfortable, asympt. [...] mL 700 mg 14 mL, IV Piggyback, [id number] docusate sodium 100 mg cap 100 mg [...] on filedocumented in this encounter Care Teams Operations Intelligence Superintendent Relationship Specialty Start Date End Date Juan José Kendall MD [address] [facility] [address] [place] [address] PCP - General Family Medicine 12/25/22 Juan José Kendall MD [address] [facility] [address] [place] [id number] Referring Physician Family Medicine 12/25/22 documented as of this encounter
--- OUTSIDE RECORDS SUMMARY | 2025-02-22 09:07 | XMS_ITS | Encounter Summary ---
Author Organization [employer] ([place], [place], [place], [place], [place]) Address [address] [place] [address] Care Team Providers Care Bullion Weigher Name Role Phone Juan José Kendall MD Primary Care Provider + [phone] Juan José Kendall MD Unavailable [phone] Encounter Details Date Type Department Care Team (Late st Contact Info) Description 09/03/2018 Transcribed Document [facility] [place] Family Medicine [address] [place] [address] ProviderLaurie MD [address] [place] [address] Social History Tobacco Use Types Packs/Day Years [...] Janae Alonso Rn - 09/03/2018 15:58 EDT Electronically signed by Aleks [facility] Conversion Lock Stitch Channeler Cerner at 07/24/2022 3:39 PM CDT documented in this encounter Plan of Treatment Not on file documented as of this encounter Visit Diagnoses Not on filedocumented in this encounter Care Teams Bullion Weigher Relationship Specialty Start Date End Date Juan José Kendall MD [address] [place] [facility] [address] [place] [address] PCP - General Family Medicine 12/25/22 Juan José Kendall MD [address] [facility] [address] [place] [address] Referring Physician Family Medicine 12/25/22 documented as of this encounter
--- OUTSIDE RECORDS SUMMARY | 2025-02-22 09:07 | XMS_ITS | Encounter Summary ---
Author Organization [employer] ([place], [place], [place], [place], [place]) Address [address] [place] [address] Care Team Providers Care Big Data Lead Name Role Phone Juan José Kendall MD Primary Care Provider + [phone] Juan José Kendall MD Unavailable [phone] Encounter Details Date Type Department Care Team (Late st Contact Info) Description 09/04/2018 Transcribed Document [facility] [place] [facility] [place] [address] Laurie Garcia MD [address] [place] [address] Social History Tobacco Use Types Packs/Day Years [...] mL 700 mg 14 mL, IV Piggyback, [id number] docusate sodium 100 mg cap 100 mg [...] % LOW Lymph # 0.94 K/uL LOW [place] % 9.9 % [place] # 0.66 K/uL Eos % 9.6 % [...] % LOW Lymph # 1.14 K/uL LOW [place] % 9.8 % [place] # 0.74 K/uL Eos % 4.5 % [...] on filedocumented in this encounter Care Teams Big Data Lead Relationship Specialty Start Date End Date Juan José Kendall MD [address] [place] [facility] [address] [place] [address] PCP - General Family Medicine 12/25/22 Juan José Kendall MD [address] [place] [facility] [address] [place] [phone] Referring Physician Family Medicine 12/25/22 documented as of this encounter
--- OUTSIDE RECORDS SUMMARY | 2025-02-22 09:07 | XMS_ITS | Encounter Summary ---
Author Organization [employer] ([place], [place], [place], [place], [place]) Address [address] [place] [address] Care Team Providers Care Mechanical Assembler Name Role Phone Juan José Kendall MD Primary Care Provider +- [phone] Juan José Kendall MD Unavailable +[phone] Encounter Details Date Type Department Care Team (Late st Contact Info) Description 09/03/2018 Transcribed Document [facility] [place] [address] [place] [address] ProviderLaurie MD [address] [place] [address] Social History Tobacco Use Types Packs/Day Years Used Date Smoking Tobacco: Never Assessed Comments Unknown Sex and Gender Information Value Date Recorded Sex Assigned at Not on file Legal Sex Female 2:23 PM CDT Gender Identity Not on file Sexual Orientation Not on file documented as of this encounter Miscellaneous Notes * Cerner Conversion Note - Laurie ProviderMD - 09/03/2018 2:00 AM CDT Entry Level Project Coordinator Details Entered On: 09/03/2018 1:05 EDT Performed [...] filedocumented in this encounter Care Teams Mechanical Assembler Relationship Specialty Start Date End Date Juan José Kendall MD [address] [place] [facility] [address] [place] [phone] PCP - General Family Medicine 12/25/22 Juan José Kendall MD [address] [facility] [address] [place] [phone] Referring Physician Family Medicine 12/25/22 documented as of this encounter
--- OUTSIDE RECORDS SUMMARY | 2025-02-22 09:08 | XMS_ITS | Encounter Summary ---
Author Organization [employer] ([place], [place], [place], [place], [place]) Address [address] [place] [address] Care Team Providers Care Drywall Taper Name Role Phone Juan José Kendall MD Primary Care Provider +- [phone] Juan José Kendall MD Unavailable [phone] Encounter Details Date Type Department Care Team (Late st Contact Info) Description 09/13/2018 Transcribed Document [facility] [place] Family Medicine [address] [place] [address] ProviderLaurie MD [address] [place] [address] Social History Tobacco Use Types Packs/Day Years Used Date Smoking Tobacco: Never Assessed Comments Unknown Sex and Gender Information Value Date Recorded Sex Assigned at Not on file Legal Sex Female 2:23 PM CDT Gender Identity Not on file Sexual Orientation Not on file documented as of this encounter Miscellaneous Notes * Cerner Conversion Note - Historical ProviderMD - 09/13/2018 2:00 AM CDT Pharmacology Associate Details Entered On: 09/13/2018 2:31 EDT Performed [...] on filedocumented in this encounter Care Teams Drywall Taper Relationship Specialty Start Date End Date Juan José Kendall MD [address] [facility] [address] [place] [address] PCP - General Family Medicine 12/25/22 Juan José Kendall MD [address] [facility] [address] [place] [phone] Referring Physician Family Medicine 12/25/22 documented as of this encounter
--- OUTSIDE RECORDS SUMMARY | 2025-02-22 09:08 | XMS_ITS | Encounter Summary ---
Author Organization [employer] ([place], [place], [place], [place], [place]) Address [address] [place] [address] Care Team Providers Care Tuck Pointer Name Role Phone Juan José Kendall MD Primary Care Provider + [phone] Juan José Kendall MD Unavailable [phone] Encounter Details Date Type Department Care Team (Late st Contact Info) Description 06/27/2018 Transcribed Document [facility] [place] [address] [place] [address] ProviderLaurie MD [address] [place] [address] Social History Tobacco Use Types Packs/Day Years [...] Performed On: 06/27/2018 12:39 EDT by TANMAY BEY RN Event Note Event Date/Time : 06/27/2018 12:39 EDT Description of Event : pt resting comfortably at bedside TANMAY BEY, RN - 06/27/2018 12:39 EDT Electronically signed by Aleks [facility] Conversion Coat Repair Inspector Cerner at 07/24/2022 3:41 PM CDT documented in this encounter Plan of Treatment Not on file documented as of this encounter Visit Diagnoses Not on filedocumented in this encounter Care Teams Tuck Pointer Relationship Specialty Start Date End Date Juan José Kendall MD [address] [place] [facility] [address] [place] [phone] PCP - General Family Medicine 12/25/22 Juan José Kendall MD [address] [place] [phone] Referring Physician Family Medicine 12/25/22 documented as of this encounter
--- OUTSIDE RECORDS SUMMARY | 2025-02-22 09:08 | XMS_ITS | Encounter Summary ---
Author Organization [employer] ([place], [place], [place], [place], [place]) Address [address] [place] [address] Care Team Providers Care Supervisor Rolling Room Name Role Phone Juan José Kendall MD Primary Care Provider + [phone] Juan José Kendall MD Unavailable +[phone] Encounter Details Date Type Department Care Team (Late st Contact Info) Description 09/02/2018 Transcribed Document [facility] [place] Family Medicine [address] [place] [address] ProviderLaurie MD [address] [place] [address] Social History Tobacco Use Types Packs/Day Years [...] stay on top of the H&H. Dayday Crump, RN - 09/02/2018 7:38 EDT documented in this encounter Plan of Treatment Not on file documented as of this encounter Visit Diagnoses Not on filedocumented in this encounter Care Teams Supervisor Rolling Room Relationship Specialty Start Date End Date Juan José Kendall MD 1210 [facility] [address] [place] [phone] PCP - General Family Medicine 12/25/22 Juan José Kendall MD [address] [place] [facility] [address] [place] [phone] Referring Physician Family Medicine 12/25/22 documented as of this encounter
--- OUTSIDE RECORDS SUMMARY | 2025-02-22 09:08 | XMS_ITS | Encounter Summary ---
Author Organization [employer] ([place], [place], [place], [place], [place]) Address [address] [place] [address] Care Team Providers Care Flooring Installer Name Role Phone Juan José Kendall MD Primary Care Provider + [phone] Juan José Kendall MD Unavailable [phone] Encounter Details Date Type Department Care Team (Late st Contact Info) Description 06/27/2018 Transcribed Document [facility] [place] [address] [place] [address] Laurie Garcia MD [address] [place] [address] Social History Tobacco Use Types Packs/Day Years Used Date Smoking Tobacco: Never Assessed Comments Unknown Sex and Gender Information Value Date Recorded Sex Assigned at Not on file Legal Sex Female 2:23 PM CDT Gender Identity Not on file Sexual Orientation Not on file documented as of this encounter Miscellaneous Notes * Cerner Conversion Note - Laurie ProviderMD - 06/27/2018 12:21 PM CDT Spiritual [...] Family/Significant other supported, Feelings expressed Spiritual and Confucianist : Prayer shared LAWRENCE RICHARDS Chaplain-Non Cert - 06/28/2018 8:33 EDT Electronically signed by Aleks [facility] Conversion Recovery Room Nurse Cerner at 07/24/2022 3:41 PM CDT documented in this encounter Plan of Treatment Not on file documented as of this encounter Visit Diagnoses Not on filedocumented in this encounter Care Teams Flooring Installer Relationship Specialty Start Date End Date Juan José Kendall MD [address] [facility] [address] [place] [phone] PCP - General Family Medicine 12/25/22 Juan José Kendall MD [address] [facility] [address] [place] [phone] Referring Physician Family Medicine 12/25/22 documented as of this encounter
--- OUTSIDE RECORDS SUMMARY | 2025-02-22 09:08 | XMS_ITS | Encounter Summary ---
Author Organization [employer] ([place], [place], [place], [place], [place]) Address [address] [place] [address] Care Team Providers Care Finger Cobbler Name Role Phone Juan José Kendall MD Primary Care Provider +- [phone] Juan José Kendall MD Unavailable [phone] Encounter Details Date Type Department Care Team (Late st Contact Info) Description 06/27/2018 Transcribed Document [facility] [place] [address] [place] [address] ProviderLaurie MD [address] [place] [address] Social History Tobacco Use Types Packs/Day Years [...] 06/27/2018 3:45 PM CDT [facility] OR PACU Summary Primary Physician: JONG SANTACRUZ MD-ORT Finalized Date/Time: 06/27/18 19:56:33 Pt. Name: BAIRONTRUDI D.O.B./Sex: 1955 Female Med Rec #: [id number] Physician: JONG SANTACRUZ MD-ORT Financial #: [id number] Pt. Type: O Room/Bed: Admit/Disch: 06/27/18 03:45:00 - Institution: [facility] OR PACU Case Times Entry 1 In PACU I 06/27/18 18:37:00 Ready for PACU 06/27/18 19:56:00 Discharge Discharge from PACU 06/27/18 19:56:00 I Last Modified By: Mayito Crowell Rn-Traveler 06/27/18 19:56:19 [facility] Main OR PACU Case Times Audit 06/27/18 19:56:19 Fork Lift Mechanic: [id number] Modifier: [id number] <+> 1 Ready for PACU Discharge <+> 1 Discharge from PACU I Finalized By: Mayito Crowell Rn-Traveler Document Signatures Signed By: Mayito Crowell Rn-Traveler 06/27/18 19:56 documented in this encounter Plan of Treatment Not on file documented as of this encounter Visit Diagnoses Not on filedocumented in this encounter Care Teams Finger Cobbler Relationship Specialty Start Date End Date Juan José Kendall MD 12[address] [facility] [address] [facility] [place] [phone] PCP - General Family Medicine 12/25/22 Juan José Kendall MD [address] [facility] [address] [place] [facility] [place] [address] Referring Physician Family Medicine 12/25/22 documented as of this encounter
--- OUTSIDE RECORDS SUMMARY | 2025-02-22 09:08 | XMS_ITS | Encounter Summary ---
Author Organization [employer] ([place], [place], [place], [place], [place]) Address [address] [place] [address] Care Team Providers Care Clothing Presser Name Role Phone Juan José Kendall MD Primary Care Provider + [phone] Juan José Kendall MD Unavailable [phone] Encounter Details Date Type Department Care Team (Late st Contact Info) Description 06/27/2018 Transcribed Document [facility] [place] [address] Laurie Garcia MD [address] [place] [address] Social History Tobacco Use Types Packs/Day Years [...] tubercle at the attachment site of the kaw patellar tendon. The section of bone was [...] were placed in the graft and the kaw tendon to optimize the fixation of the graft and to encourage collagen ingrowth into the polypropylene mesh. The graft was sewn along the medial border of the patella. Once this was secured, the extensor apparatus was quite tight and the patella was brought distally to ia near normal position with the knee in extension. The kaw patellar tendon was sutured as wel, closing [...] Trans: 06/28/2018 02:10:58 CC1: Shay Guerrero M.D. documented in this encounter Plan of Treatment Not on file documented as of this encounter Visit Diagnoses Not on filedocumented in this encounter Care Teams Clothing Presser Relationship Specialty Start Date End Date Juan José Kendall MD [address] [facility] [address] [place] [phone] PCP - General Family Medicine 12/25/22 Juan José Kendall MD [address] [place] [facility] [address] [place] [phone] Referring Physician Family Medicine 12/25/22 documented as of this encounter
--- OUTSIDE RECORDS SUMMARY | 2025-02-22 09:08 | XMS_ITS | Encounter Summary ---
Author Organization [employer] ([place], [place], [place], [place], [place]) Address [address] [place] [address] Care Team Providers Care Rn Assessment Name Role Phone Juan José Kendall MD Primary Care Provider + [phone] Juan José Kendall MD Unavailable [phone] Encounter Details Date Type Department Care Team (Late st Contact Info) Description 09/02/[address] [facility] [place] Family [place] [address] Laurie Garcia MD [address] [place] [address] Social History Tobacco Use Types Packs/Day Years [...] , pain under control, ???Slow progressive improvement H&H 5 and 15.8 respectively ???Transfusion of [...] mL 700 mg 14 mL, IV Piggyback, [id number] docusate sodium 100 mg cap 100 mg [...] 9.0 % LOW Lymph # 1.21 K/uL [place] % 5.2 % [place] # 0.69 K/uL Eos % 0.0 % [...] by infectious disease -Continue on wound care. Electronically signed by Adia Fink Conversion Recreational Facilities Motel Manager Cerner at 07/24/2022 3:59 PM CDT documented in this encounter Plan of Treatment Not on file documented as of this encounter Visit Diagnoses Not on filedocumented in this encounter Care Teams Rn Assessment Relationship Specialty Start Date End Date Juan José Kendall MD 12[address] [facility] [address] [place] [phone] PCP - General Family Medicine 12/25/22 Juan José Kendall MD [address] [facility] [address] [place] [phone] Referring Physician Family Medicine 12/25/22 documented as of this encounter
--- OUTSIDE RECORDS SUMMARY | 2025-02-22 09:08 | XMS_ITS | Encounter Summary ---
Author Organization [employer] ([place], [place], [place], [place], [place]) Address [address] [place] [address] Care Team Providers Care Analytic Manager Name Role Phone Juan José Kendall MD Primary Care Provider +- [phone] Juan José Kendall MD Unavailable [phone] Encounter Details Date Type Department Care Team (Late st Contact Info) Description 06/27/2018 Transcribed Document [facility] [place] [address] [place] [address] ProviderLaurie MD [address] [place] [address] Social History Tobacco Use Types Packs/Day Years [...] 14:54 EDT by Indira Minor Nurse - other [...] Assisted by : Indira Minor Nurse - other Ultra sound used during insertion : Yes Nerve Block Activity, Patient Tolerance : Good Peripheral Nerve Block Comment : pre op nerve block per surgeon request Peripheral Nerve Block End Date/Time : 06/27/2018 14:15 EDT Indira Minor Nurse - other - 06/27/2018 14:54 EDT Electronically signed by [facility] Conversion Ssis Etl Developer Cerner at 07/24/2022 3:43 PM CDT documented in this encounter Plan of Treatment Not on file documented as of this encounter Visit Diagnoses Not on filedocumented in this encounter Care Teams Analytic Manager Relationship Specialty Start Date End Date Juan José Kendall MD 1210 [facility] [address] [place] [phone] PCP - General Family Medicine 12/25/22 Juan José Kendall MD [address] [facility] [address] [place] [phone] Referring Physician Family Medicine 12/25/22 documented as of this encounter
--- OUTSIDE RECORDS SUMMARY | 2025-02-22 09:08 | XMS_ITS | Encounter Summary ---
Author Organization [employer] ([place], [place], [place], [place], [place]) Address [address] [place] [address] Care Team Providers Care Clinical Research Nurse Coordinator Name Role Phone Juan José Kendall MD Primary Care Provider + [phone] Juan José Kendall MD Unavailable [phone] Encounter Details Date Type Department Care Team (Late st Contact Info) Description 09/03/2018 Transcribed Document [facility] [place] [facility] [place] [address] ProviderLaurie MD [address] [place] [address] Social History Tobacco Use Types Packs/Day Years Used Date Smoking Tobacco: Never Assessed Comments Unknown Sex and Gender Information Value Date Recorded Sex Assigned at Not on file Legal Sex Female 2:23 PM CDT Gender Identity Not on file Sexual Orientation Not on file documented as of this encounter Miscellaneous Notes * Cerner Conversion Note - Laurie Garcia MD - 09/03/2018 8:42 AM CDT Patient: TRUDI [...] filedocumented in this encounter Care Teams Clinical Research Nurse Coordinator Relationship Specialty Start Date End Date Juan José Kendall MD 12[address] [facility] [address] [place] [phone] PCP - General Family Medicine 12/25/22 Juan José Kendall MD [facility] [address] [place] [phone] Referring Physician Family Medicine 12/25/22 documented as of this encounter
--- OUTSIDE RECORDS SUMMARY | 2025-02-22 09:08 | XMS_ITS | Encounter Summary ---
Author Organization [employer] ([place], [place], [place], [place], [place]) Address [address] [place] [address] Care Team Providers Care Digital Cartographic Technician Name Role Phone Juan José Kendall MD Primary Care Provider + [phone] Juan José Kendall MD Unavailable +[phone] Encounter Details Date Type Department Care Team (Late st Contact Info) Description 09/14/2018 Transcribed Document [facility] [place] Family Medicine [address] [place] [address] ProviderLaurie MD [address] [place] [address] Social History Tobacco Use Types Packs/Day Years Used Date Smoking Tobacco: Never Assessed Comments Unknown Sex and Gender Information Value Date Recorded Sex Assigned at Not on file Legal Sex Female 2:23 PM CDT Gender Identity Not on file Sexual Orientation Not on file documented as of this encounter Miscellaneous Notes * Cerner Conversion Note - Laurie ProviderMD - 09/14/2018 5:00 PM CDT Chart Check - Review Order Profile Entered On: 09/14/2018 18:31 EDT Performed On: 09/14/2018 17:00 EDT by Emily Fox RN Chart Check Powerplans Initiated/Discontinued as Appropriate : Yes All Active Orders Reviewed : Yes Emily Fox RN - 09/14/2018 18:31 EDT Electronically signed by Adia Fink Conversion Travel Freight And Passenger Agent Cerner at 07/24/2022 3:32 PM CDT documented in this encounter Plan of Treatment Not on file documented as of this encounter Visit Diagnoses Not on filedocumented in this encounter Care Teams Digital Cartographic Technician Relationship Specialty Start Date End Date Juan José Kendall MD [address] [place] [address] [place] [phone] PCP - General Family Medicine 12/25/22 Juan José Kendall MD [address] [place] [address] [place] [phone] Referring Physician Family Medicine 12/25/22 documented as of this encounter
--- OUTSIDE RECORDS SUMMARY | 2025-02-22 09:08 | XMS_ITS | Encounter Summary ---
Author Organization [employer] ([place], [place], [place], [place], [place]) [place] [address] Care Team Providers Care Academy Education Director Name Role Phone Juan José Kendall MD Primary Care Provider +- [phone] Juan José Kendall MD Unavailable [phone] Encounter Details Date Type Department Care Team (Late st Contact Info) Description 09/14/2018 Transcribed Document [facility] [place] Family Medicine [address] [place] [address] ProviderLaurie MD [address] [place] [address] Social History Tobacco Use Types Packs/Day Years Used Date Smoking Tobacco: Never Assessed Comments Unknown Sex and Gender Information Value Date Recorded Sex Assigned at Not on file Legal Sex Female 2:23 PM CDT Gender Identity Not on file Sexual Orientation Not on file documented as of this encounter Miscellaneous Notes * [employer]ner Conversion Note - Laurie ProviderMD - 09/14/2018 2:00 AM CDT Engineer Gas Pumping [employer] Details Entered On: 09/14/2018 2:17 EDT Performed [...] Angy Esqueda Rn - 09/14/2018 2:17 EDT Electronically signed by Aleks [facility] Conversion Instructor Industrial Design Cerner at 07/24/2022 3:31 PM CDT documented in this encounter Plan of Treatment Not on file documented as of this encounter Visit Diagnoses Not on filedocumented in this encounter Care Teams Academy Education Director Relationship Specialty Start Date End Date Juan José Kendall MD 1210 [facility] [address] [place] [address] PCP - General Family Medicine 12/25/22 Juan José Kendall MD [address] [facility] [address] [place] [phone] Referring Physician Family Medicine 12/25/22 documented as of this encounter
--- OUTSIDE RECORDS SUMMARY | 2025-02-22 09:08 | XMS_ITS | Encounter Summary ---
Author Organization [employer] ([place], [place], [place], [place], [place]) Address [address] [place] [address] Care Team Providers Care Clinical Data Management Manager Name Role Phone Juan José Kendall MD Primary Care Provider + [phone] Juan Jsoé Kendall MD Unavailable [phone] Encounter Details Date Type Department Care Team (Late st Contact Info) Description 06/27/2018 Transcribed Document [facility] [place] [address] Laurie Garcia MD [address] [place] [address] Social History Tobacco Use Types Packs/Day Years Used Date Smoking Tobacco: Never Assessed Comments Unknown Sex and Gender Information Value Date Recorded Sex Assigned at Not on file Legal Sex Female 2:23 PM CDT Gender Identity Not on file Sexual Orientation Not on file documented as of this encounter Miscellaneous Notes * Cerner Conversion Note - Historical MD Jose - 06/27/2018 6:58 PM CDT DATE OF [...] grafts, left knee. SURGEON: Shay Guerrero MD LEAD DRIVER: Ester Cloud PA-C DESCRIPTION OF PROCEDURE: Patient [...] plasty performed using the Calderon elevator. The burns paiute patellar tendon and adjacent soft tissue were utilized with [id number] technique to close the tendon area tightly [...] 18:58:16 Trans: 06/28/2018 02:15:45 Processed: 06/28/2018 12:37:33 [place] CC1: Shay Guerrero M.D. documented in this encounter Plan of Treatment Not on file documented as of this encounter Visit Diagnoses Not on filedocumented in this encounter Care Teams Clinical Data Management Manager Relationship Specialty Start Date End Date Juan José Kendall MD [address] [facility] [address] [place] [address] PCP - General Family Medicine 12/25/22 Juan José Kendall MD [address] [facility] [address] [place] [address] Referring Physician Family Medicine 12/25/22 documented as of this encounter
--- OUTSIDE RECORDS SUMMARY | 2025-02-22 09:08 | XMS_ITS | Encounter Summary ---
Author Organization [employer] ([place], [place], [place], [place], [place]) Address [address] [place] [address] Care Team Providers Care Biology Internship Name Role Phone Juan José Kendall MD Primary Care Provider +- [phone] Juan José Kendall MD Unavailable [phone] Encounter Details Date Type Department Care Team (Late st Contact Info) Description 09/14/2018 Transcribed Document [facility] [place] [address] [place] [address] ProviderLaurie MD [address] [place] [address] Social History Tobacco Use Types Packs/Day Years Used Date Smoking Tobacco: Never Assessed Comments Unknown Sex and Gender Information Value Date Recorded Sex Assigned at Not on file Legal Sex Female 2:23 PM CDT Gender Identity Not on file Sexual Orientation Not on file documented as of this encounter Miscellaneous Notes * Cerner Conversion Note - Laurie Garcia MD - 09/14/2018 3:00 AM CDT Pain Assessment [...] on filedocumented in this encounter Care Teams Biology Internship Relationship Specialty Start [place] [address] [place] [address] [address] [place] [address] PCP - General Family Medicine 12/25/22 Juan José Kendall MD [address] [place] [address] [address] [place] [address] Referring Physician Family Medicine 12/25/22 documented as of this encounter
--- OUTSIDE RECORDS SUMMARY | 2025-02-22 09:08 | XMS_ITS | Encounter Summary ---
Author Organization [employer] ([place], [place], [place], [place], [place]) Address [address] [place] [address] Care Team Providers Care Home Care Music Therapist Name Role Phone Juan José Kendall MD Primary Care Provider + [phone] Juan José Kendall MD Unavailable [phone] Encounter Details Date Type Department Care Team (Late st Contact Info) Description 09/02/2018 Transcribed Document [facility] [place] [address] [place] [address] ProviderLaurie MD [address] [place], [place] [id number] Social History Tobacco Use Types Packs/Day Years Used Date Smoking Tobacco: Never Assessed Comments Unknown Sex and Gender Information Value Date Recorded Sex Assigned at Not on file Legal Sex Female 2:23 PM CDT Gender Identity Not on file Sexual Orientation Not on file documented as of this encounter Miscellaneous Notes * Cerner Conversion Note - Laurie ProviderMD - 09/02/2018 5:00 AM CDT Chart [...] on filedocumented in this encounter Care Teams Home Care Music Therapist Relationship Specialty Start Date End Date Juan José Kendall MD [address] [place] [address] [place] [address] PCP - General Family Medicine 12/25/22 Juan José Kendall MD [address] [place] [address] [place] [address] Referring Physician Family Medicine 12/25/22 documented as of this encounter
--- OUTSIDE RECORDS SUMMARY | 2025-02-22 09:08 | XMS_ITS | Encounter Summary ---
Author Organization [employer] ([place], [place], [place], [place], [place]) Address [address] [place] [address] Care Team Providers Care Mine Shifter Name Role Phone Juan José Kendall MD Primary Care Provider + [phone] Juan José Kendall MD Unavailable [phone] Encounter Details Date Type Department Care Team (Late st Contact Info) Description 09/03/[address] [facility] [place] Medicine [address] [place] [address] ProviderLaurie MD [address] [place] [address] Social History Tobacco Use Types Packs/Day Years Used Date Smoking Tobacco: Never Assessed Comments Unknown Sex and Gender Information Value Date Recorded Sex Assigned at Not on file Legal Sex Female 2:23 PM CDT Gender Identity Not on file Sexual Orientation Not on file documented as of this encounter Miscellaneous Notes * Cerner Conversion Note - Laurie ProviderMD - 09/03/2018 5:00 AM CDT Chart [...] filedocumented in this encounter Care Teams Mine Shifter Relationship Specialty Start Date End Date Juan José Kendall MD [address] [place] [address] [place] [address] PCP - General Family Medicine 12/25/22 Juan José Kendall MD [address] [place] [address] [place] [address] Referring Physician Family Medicine 12/25/22 documented as of this encounter
--- OUTSIDE RECORDS SUMMARY | 2025-02-22 09:09 | XMS_ITS | Encounter Summary ---
Author Organization [employer] ([place], [place], [place], [place], [place]) Address [address] [place] [address] Care Team Providers Care Orthopedics Nurse Name Role Phone Juan José Kendall MD Primary Care Provider + [phone] Juan José Kendall MD Unavailable [phone] Encounter Details Date Type Department Care Team (Late st Contact Info) Description 09/06/2018 Transcribed Document [facility] [place] [facility] [place] [address] ProviderLaurie MD [address] [place] [address] Social History Tobacco Use Types Packs/Day Years [...] EDT Performed On: 09/06/2018 7:54 EDT by JAEY MAYFIELD Care Management-Area Mechanic Care Management Progress Note Discharge Arrangements : Patient Post-Acute Information Patient Name: TRUDI BLAIR Gender: Female : [birth year] Age: 63 Years No Post-Acute Placement(s) Listed No Post-Acute Service(s) Listed No Curaspan Referral(s) Listed Discharge Options Discussed with Patient : Acute rehabilitation, Short term rehabilitation JAYE MAYFIELD, Care Management-Area Mechanic - 09/06/2018 7:54 EDT Narrative Progress Note Narrative Progress Note : Patient is agreeable to look at other facilities, pt prefers [facility] if dapto can be changed, I will discuss with ID JAYE MAYFIELD, Care Management-Area Mechanic - 09/06/2018 7:54 EDT Electronically signed by Aleks, [facility] Conversion Head Of Commission Department Cerner at 07/24/2022 3:39 PM CDT documented in this encounter Plan of Treatment Not on file documented as of this encounter Visit Diagnoses Not on filedocumented in this encounter Care Teams Orthopedics Nurse Relationship Specialty Start Date End Date Juan José Kendall MD [address] [facility] [address] [place] [address] PCP - General Family Medicine 12/25/22 Juan José Kendall MD [address] [facility] [address] [place] [address] Referring Physician Family Medicine 12/25/22 documented as of this encounter
--- OUTSIDE RECORDS SUMMARY | 2025-02-22 09:09 | XMS_ITS | Encounter Summary ---
Author Organization [employer] ([place], [place], [place], [place], [place]) Address [address] [place] [address] Care Team Providers Care Tieing Machine Operator Name Role Phone Juan José Kendall MD Primary Care Provider + [phone] Juan José Kendall MD Unavailable [phone] Encounter Details Date Type Department Care Team (Late st Contact Info) Description 09/05/2018 Transcribed Document [facility] [place] [address] [place] [address] Laurie Garcia MD [address] [place] [address] Social History Tobacco Use Types Packs/Day Years [...] Garcia MD - 09/05/2018 8:32 AM CDT ASE MODIFY [...] CDS Signature: Gardenia SHANNON, RN. Phone #: [phone] This is a permanent part of the Medical Record documented in this encounter Plan of Treatment Not on file documented as of this encounter Visit Diagnoses Not on filedocumented in this encounter Care Teams Tieing Machine Operator Relationship Specialty Start Date End Date Juan José Kendall MD [address] [place] [address] [place] [address] PCP - General Family Medicine 12/25/22 Juan José Kendall MD [address] [place] [address] [place] [address] Referring Physician Family Medicine 12/25/22 documented as of this encounter
--- OUTSIDE RECORDS SUMMARY | 2025-02-22 09:09 | XMS_ITS | Encounter Summary ---
Author Organization [employer] ([place], [place], [place], [place], [place]) Address [address] [place] [address] Care Team Providers Care Hospital Aides And Assistants Teacher Name Role Phone Juan José Kendall MD Primary Care Provider + [phone] Juan José Kendall MD Unavailable [phone] Encounter Details Date Type Department Care Team (Late st Contact Info) Description 06/23/2018 Transcribed Document [facility] [place] Medicine [address] [place] [address] Laurie Garcia MD [address] [place] [address] Social History Tobacco Use Types Packs/Day Years [...] Source : Stated Height Entry Format : [place] Height, Feet : 5 ft(Converted to: 152 cm, 60 Inch) Height, Inches : 6 Inch(Converted to: 0 ft 6 Inch, 15.24 cm) Clinical Height : 167.64 cm Weight Source : Standing scale Weight Entry Format : [place] Clinical Dosing Weight : 120.45 kg Weight, Pounds : 265 lb Body Surface Area (BSA) : 2.26 m2 Body Mass Index : 42.9 kg/m2 (>HHI) Francis Body Weight : 59 kg RASHEL BARRAZA [...] 06/23/2018 15:46:55 EDT by RASHEL BARRAZA, LISBETH) Substance Abuse: Drug Use Hx: No. (Last [...] understanding Take/Hold Medications Pre-Procedure : Verbalizes understanding RASHEL BARRAZA RN - 06/23/2018 15:47 EDT General Info Want Family/Rep/Phys Notified of Admit : No Emergency Contact #1 : Mauricio Emergency Contact #1 Emergency Contact #1 Relationship : spouse Emergency Contact #2 : - Emergency Contact #2 Phone Number : - Emergency Contact #2 Relationship : - Primary Language : Wallisian Preferred Communication Mode [...] on filedocumented in this encounter Care Teams Hospital Aides And Assistants Teacher Relationship Specialty Start Date End Date Juan José Kendall MD [address] [facility] [address] [place] [address] PCP - General Family Medicine 12/25/22 Juan José Kendall MD [facility] [address] [place] [address] Referring Physician Family Medicine 12/25/22 documented as of this encounter
--- OUTSIDE RECORDS SUMMARY | 2025-02-22 09:09 | XMS_ITS | Encounter Summary ---
Author Organization [employer] ([place], [place], [place], [place], [place]) Address [address] [place] [address] Care Team Providers Care Bead Maker Name Role Phone Juan José Kendall MD Primary Care Provider +- [phone] Juan José Kendall MD Unavailable [phone] Encounter Details Date Type Department Care Team (Late st Contact Info) Description 09/06/2018 Transcribed Document [facility] [place] [address] ProviderLaurie MD [address] [place] [address] Social History Tobacco Use Types Packs/Day Years Used Date Smoking Tobacco: Never Assessed Comments Unknown Sex and Gender Information Value Date Recorded Sex Assigned at Not on file Legal Sex Female 2:23 PM CDT Gender Identity Not on file Sexual Orientation Not on file documented as of this encounter Miscellaneous Notes * Cerner Conversion Note - Laurie ProviderMD - 09/06/2018 2:00 AM CDT [employer] Head [employer] Experience Strategy Details Entered On: 09/06/2018 3:35 EDT Performed [...] on filedocumented in this encounter Care Teams Bead Maker Relationship Specialty Start Date End Date Juan José Kendall MD [address] [facility] [address] [place] [address] PCP - General Family Medicine 12/25/22 Juan José Kendall MD [address] [facility] [address] [place] [address] Referring Physician Family Medicine 12/25/22 documented as of this encounter
--- OUTSIDE RECORDS SUMMARY | 2025-02-22 09:09 | XMS_ITS | Clinical Summary ---
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 T84.54xD (ICD-10-CM) 10/18 Active 10/18 [facility] Infection and inflammatory reaction due to internal left knee prosthesis, subsequent encounter Cellulitis, leg, left 938218344 (SNOMED CT) 10/18 Active 10/18 [facility] Cellulitis of lower limb MRSA infection 237613309 (SNOMED CT) 10/18 Active 10/18 [facility] Methicillin resistant Staphylococcus aureus infection Urinary tract infection (UTI) 05070894 (SNOMED CT) 10/18 Active 10/18 [facility] Urinary tract infectious disease Enterococcal infection B95.2 (ICD-10-CM) 10/18 Active 10/18 [facility] Enterococcus as the cause of diseases classified elsewhere Enterococcal sepsis 002556355 (SNOMED CT) 10/18 Active 10/18 [facility] Septicemia due to enterococcus MRSA sepsis/septic emia A41.02 (ICD-10-CM) 10/18 Active 10/18 [facility] Sepsis due to Methicillin resistant Staphylococcus aureus ARF with tubular necrosis 002363265024 101 (SNOMED CT) 10/18 Active 10/18 [facility] Acute renal failure due to tubular necrosis Benign Essential Hypertension 98086255 (SNOMED CT) 10/18 Active 10/18 [facility] Benign hypertension Medications Medication Instructions Start Date Stop Date Generic Name NDC Provider OXYCODONE HCL 5 MG CAPS Take every four hours OXYCODONE HCL 12073528558 Komal La MIRALAX 17 GM/SCOOP POWD Take 17g by mouth daily POLYETHYLENE GLYCOL 3350 [id number] Komal [place] IBUPROFEN 200 MG TABS Take one pill by mouth three times daily IBUPROFEN 89843644232 Komal La TRAZODONE HCL 50 MG TABS 1 Tab, Oral, At Bedtime, PRN TRAZODONE HCL 01129985282 Jackie Paige TROKENDI XR 25 MG [id number] 1 Cap, Oral, twice daily TOPIRAMATE 47965915268 Jackie Paige SIMETHICONE 80 MG CHEW 1 Tab, Oral, Chew Tab, Q6H, PRN SIMETHICONE [id number] Jackie Paige FLORASTOR 250 MG CAPS Take 1 cap by mouth daily SACCHAROMYCES BOULARDII 44978671273 Jackie Paige PROMETHAZINE HCL 25 MG TABS 0.5 Tab, Oral, Q6H, PRN PROMETHAZINE HCL 67759984871 Jackie Paige PANTOPRAZOLE SODIUM 40 MG TBEC 1 Tab, Oral, EC Tab, Daily PANTOPRAZOLE SODIUM 52932951213 Jackie Paige METOCLOPRAMIDE HCL 10 MG TABS 1 Tab, Oral, Tab, twice daily METOCLOPRAMIDE HCL 01634915271 Jackie Paige HEPARIN SODIUM (PORCINE) 5000 UNIT/ML SOLN 1 mL, SubCutaneous, Inj, Q8H HEPARIN SODIUM (PORCINE) 81783194533 Jackie Paige LIPITOR 20 MG TABS 1 Tab, Oral, At Bedtime ATORVASTATIN CALCIUM 87493927702 Jackie Paige ACETAMINOPHEN 500 MG TABS 1 Tab, Oral, Tab, Q6H ACETAMINOPHEN 43434074051 Jackie Paige [facility] MILK OF MAGNESIA SUSPENSION 8% oral suspension, 30 mL, Oral, Liquid, Daily, PRN MAGNESIUM HYDROXIDE SUSP 80632823188 Jackie Paige METOPROLOL SUCCINATE ER 25 MG [id number] Take 1 tablet by mouth daily METOPROLOL SUCCINATE 48982703828 Jackie Paige CHOLESTYRAMINE LIGHT 4 GM PACK Oral, Powder, twice daily CHOLESTYRAMINE LIGHT [id number] Jackie Paige AMLACTIN 12 % EXTERNAL LOTION 1 Application, Topical, Lotion, twice daily AMMONIUM LACTATE [id number] Jackie Paige Medications Administered No information available. Allergies, Adverse Reactions, Alerts Allergy Name Reaction Description Start Date Severity Statu s Provider BIAXIN Moderate Active Jackie Paige Results Date Name Value Unit Range Flag Description Office Visit: room 6 MEDS REVIEW Done Documenta tion of current medications (procedure) ORALTOBACUSE Never Tobacco smoking status SMOK STATUS Never smoker Toba key account executive smoking status Plan of Care No information available. Procedures No information available. Vital Signs Date Name Value Unit Description BMI (Body Mass Index) 39.86 kg/m2 Bod y Mass Index (Ratio) Body Temperature 98.1 [degF] temperat ure E&M BP Diastolic 96 mm[Hg] blood pressu re, diastolic BP Systolic 158 mm[Hg] blood pressur e, systolic Heart Rate 80 /min pulse rate Height 66 [in_us] height E&M Respiratory Rate 14 /min respirat ory rate E&M Weight Measured 247.0 [lb_av] weight E& M Weight Measured 247.0 [lb_av] weight E& M Immunizations No information available. Advance Directives Directive Description Start Date POWER OF PRODUCT SAFETY OFFICER LIVING WILL ON FILE
--- OUTSIDE RECORDS SUMMARY | 2025-02-22 09:09 | XMS_ITS | Encounter Summary ---
Author Organization [employer] ([place], [place], [place], [place], [place]) Address [address] [place] [address] Care Team Providers Care Church Musician Name Role Phone Juan José Kendall MD Primary Care Provider + [phone] Juan José Kendall MD Unavailable [phone] Encounter Details Date Type Department Care Team (Late st Contact Info) Description 06/27/2018 Transcribed Document [facility] [place] Family Medicine [address] [place] [address] ProviderLaurie MD [address] [place] [address] Social History Tobacco Use Types Packs/Day Years Used Date Smoking Tobacco: Never Assessed Comments Unknown Sex and Gender Information Value Date Recorded Sex Assigned at Not on file Legal Sex Female 2:23 PM CDT Gender Identity Not on file Sexual Orientation Not on file documented as of this encounter Miscellaneous Notes * Cerner Conversion Note - Laurie Garcia MD - 06/27/2018 8:32 PM CDT Consult Phone [...] - 06/28/2018 7:07 EDT Electronically signed by Aleks, [facility] Conversion Fellmongery Worker Cerner at 07/24/2022 3:43 PM CDT documented in this encounter Plan of Treatment Not on file documented as of this encounter Visit Diagnoses Not on filedocumented in this encounter Care Teams Church Musician Relationship Specialty Start Date End Date Juan José Kendall MD [address] [place] [facility] [address] [place] [address] PCP - General Family Medicine 12/25/22 Juan José Kendall MD [address] [place] [facility] [address] [place] [address] Referring Physician Family Medicine 12/25/22 documented as of this encounter
--- OUTSIDE RECORDS SUMMARY | 2025-02-22 09:10 | XMS_ITS | Encounter Summary ---
Author Organization [employer] ([place], [place], [place], [place], [place]) Address [address] [place] [address] Care Team Providers Care Employee Communications Coordinator Name Role Phone Juan José Kendall MD Primary Care Provider + [phone] Juan José Kendall MD Unavailable [phone] Encounter Details Date Type Department Care Team (Late st Contact Info) Description 09/06/2018 Transcribed Document [facility] [place] [facility] [place] [address] ProviderLaurie MD [address] [place] [address] Social History Tobacco Use Types Packs/Day [...] 09/06/2018 7:43 EDT by JAYE MAYFIELD Care Management-Trailers And Motor Homes Salesperson Care Management Progress Note Discharge Arrangements : Patient Post-Acute Information Patient Name: TRUDI BLAIR Gender: Female : [birth year] Age: 63 Years No Post-Acute Placement(s) Listed No Post-Acute Service(s) Listed No Curaspan Referral(s) Listed Discharge Options Discussed with Patient : Acute rehabilitation, Short term rehabilitation JAYE MAYFIELD, Care Management-Trailers And Motor Homes Salesperson - 09/06/2018 7:43 EDT Narrative Progress Note Narrative Progress Note : [facility] will not accept pt on daptomycin. JAYE MAYFIELD, Care Management-Trailers And Motor Homes Salesperson - 09/06/2018 7:43 EDT Electronically signed by [facility], [facility] Conversion Jacquard Loom Weaver Cerner at 07/24/2022 3:35 PM CDT documented in this encounter Plan of Treatment Not on file documented as of this encounter Visit Diagnoses Not on filedocumented in this encounter Care Teams Employee Communications Coordinator Relationship Specialty Start Date End Date [...]
--- OUTSIDE RECORDS SUMMARY | 2025-02-22 09:10 | XMS_ITS | Encounter Summary ---
Author Organization [employer] ([place], [place], [place], [place], [place]) Address [address] [place] [address] Care Team Providers Care Registered Nurse Renal Name Role Phone Juan José Kendall MD Primary Care Provider +- [phone] Juan José Kendall MD Unavailable [phone] Encounter Details Date Type Department Care Team (Late st Contact Info) Description 09/06/2018 Transcribed Document [facility] [place] [address] ProviderLaurie MD [address] [place] [address] Social History Tobacco Use Types Packs/Day Years [...] repair. She was more recently admitted to [facility] x2 earlier this month on [...] getting wound care. She was transferred [place] [facility] [place] for a higher level of care. [...] 50 mL - 700 mg, IV Piggyback, [id number], infuse over 30 Minute(s) Anticoagulant heparin - [...] 11:00) 133 (SEP 05 18:22) H 151 (EDGARD 04 01:35) DBP 76 (SEP 06 11:00) L [...] 04) L 7.8 (EDGARD 03) L 7.7 (SEP 02) L 8.1 (SEP 01) HCT L 24.8 (SEP 04) L 24.9 (SEP 03) L 24.2 (SEP 02) L 24.9 (EDGARD 01) Plt 280 [...] 04) H 26 (EDGARD 03) H 28 (SEP 04) H 31 (SEP 03) Cr H 1.79 (SEP 04) H 1.87 (SEP 03) H 1.90 (SEP 02) H 1.95 (SEP 03) Glu R 86 (SEP 04) 91 (SEP 03) 94 (SEP 02) 84 [...] discharge ( unless she is discharged to [facility] rehabilitation and she can be followed by one of my partners there). clinic to call the patient with appointment instructions. 5. Could switch the patient to [facility]AT through [facility] when she is discharged from rehabilitation facility. ok to discharge to rehab whenever from my standpoint. I discussed with case management and placement at [facility] may not work out due to Daptomycin. Will look for placement at [facility] and other rehab facilities. complex set of medical issues requiring a high level of medical decision making. Patient has risk for further morbidity including loss of her limb. documented in this encounter Plan of Treatment Not on file documented as of this encounter Visit Diagnoses Not on filedocumented in this encounter Care Teams Registered Nurse Renal Relationship Specialty Start Date End Date Juan José Kendall MD [address] [facility] [address] [place] [address] PCP - General Family Medicine 12/25/22 Juan José Kendall MD [address] [facility] [address] [place] [address] Referring Physician Family Medicine 12/25/22 documented as of this encounter
--- OUTSIDE RECORDS SUMMARY | 2025-02-22 09:10 | XMS_ITS | Encounter Summary ---
Author Organization [employer] ([place], [place], [place], [place], [place]) Address [address] [place] [address] Care Team Providers Care Oil Tester Name Role Phone Juan José Kendall MD Primary Care Provider + [phone] Juan José Kendall MD Unavailable [phone] Encounter Details Date Type Department Care Team (Late st Contact Info) Description 09/06/2018 Transcribed Document [facility] [place] [address] [place] [address] ProviderLaurie MD [address] [place] [address] Social History Tobacco Use Types Packs/Day Years [...] Plan: ANTHEM HMOPPO Policy Number: Authorization Number: [id number] Insurance 2 Health Plan: MEDICARE Policy Number: [id number] Authorization Number: Insurance Primary Name : Luz TREVORGrecia Authorization Status-Primary : Admit approved Authorization Number-Primary : [id number] Number of Days Authorized-Primary : DRG Authorized Service Begin Date-Primary : 08/30/2018 EDT Authorized Service End Date-Primary : 09/06/2018 EDT Authorization Comments-Primary : Call to Luz CHEUNG to obtain fax # for cont stay--clinicals faxed for cont stay via cerner to [phone]. (09/05-09/06/18) Historical Authorization Comments-Primary : Comment 1: Per Availity site (referred to different section than normal), inpt admission approved. Auth noted. Will need d/c date called. (Inder Cowan Mkt Head Grower-Utilization Mgt 08/31/2018 12:52) KAZ DIAZ, RN-Utilization Review - 09/06/2018 12:23 EDT Electronically signed by Aleks [facility] Conversion Table Cover Folder Cerner at 07/24/2022 3:50 PM CDT documented in this encounter Plan of Treatment Not on file documented as of this encounter Visit Diagnoses Not on filedocumented in this encounter Care Teams Oil Tester Relationship Specialty Start Date End Date Juan José Kendall MD [address] [place] [facility] [address] [facility] [place] [address] PCP - General Family Medicine 12/25/22 Juan José Kendall MD [address] [place] [employer] [address] [place] [address] Referring Physician Family Medicine 12/25/22 documented as of this encounter
--- OUTSIDE RECORDS SUMMARY | 2025-02-22 09:10 | XMS_ITS | Encounter Summary ---
Author Organization [employer] ([place], [place], [place], [place], [place]) Address [address] [place] [address] Care Team Providers Care Appraisal Specialist Name Role Phone Juan José Kendall MD Primary Care Provider +- [phone] Juan José Kendall MD Unavailable [phone] Encounter Details Date Type Department Care Team (Late st Contact Info) Description 09/06/2018 Transcribed Document [facility] [place] Family Medicine [address] [place] [address] Laurie Garcia MD [address] [place] [address] Social History Tobacco Use Types Packs/Day Years Used Date Smoking Tobacco: Never Assessed Comments Unknown Sex and Gender Information Value Date Recorded Sex Assigned at Not on file Legal Sex Female 2:23 PM CDT Gender Identity Not on file Sexual Orientation Not on file documented as of this encounter Miscellaneous Notes * Cerner Conversion Note - Laurie Garcia MD - 09/06/2018 2:53 PM CDT [facility] Inpatient Documentation Entered On: 09/06/2018 15:12 EDT Performed On: 09/06/2018 14:53 EDT by Aric Jesus RN [facility] Admission Date : Admit Date 08/30/2018 14:25 [...] from her cast before she got to [facility]. [employer] and allevyn placed [...] on filedocumented in this encounter Care Teams Appraisal Specialist Relationship Specialty Start Date End Date Juan José Kendall MD [address] [place] [address] [address] [place] [address] PCP - General Family Medicine 12/25/22 [place] [address] [place] [address] [address] [place] [address] Referring Physician Family Medicine 12/25/22 documented as of this encounter
--- OUTSIDE RECORDS SUMMARY | 2025-02-22 09:10 | XMS_ITS | Encounter Summary ---
Author Organization [employer] ([place], [place], [place], [place], [place]) Address [address] [place] [address] Care Team Providers Care Trim Master Operator Name Role Phone Romulo Kendall MD Primary Care Provider + [phone] Romulo Kendall MD Unavailable +[phone] Encounter Details Date Type Department Care Team (Late st Contact Info) Description 06/23/2018 Transcribed Document [facility] Family Medicine [facility] [place] [address] ProviderLaurie MD [address] [place] [address] Social History Tobacco Use Types Packs/Day Years Used Date Smoking Tobacco: Never Assessed Comments Unknown Sex and Gender Information Value Date Recorded Sex Assigned at Not on file Legal Sex Female 2:23 PM CDT Gender Identity Not on file Sexual Orientation Not on file documented as of this encounter Miscellaneous Notes * Cerner Conversion Note - Laurie Garcia MD - 06/23/2018 3:06 PM CDT Patient: TRUDI BLAIR Age: 62 Years Sex: Female : [...] Pt father in his 50s from a [place]. Diagnostic Results EKG- Sinus Manish, 50 CXR- [...] Second(s) 06/23/2018 17:19 INR 1.0 06/23/2018 17:19 Electronically signed by Interface, [facility] Conversion In Room Dining Server Cerner at 07/24/2022 3:51 PM CDT documented in this encounter Plan of Treatment Not on file documented as of this encounter Visit Diagnoses Not on filedocumented in this encounter Care Teams Trim Master Operator Relationship Specialty Start Date End Date Romulo Kendall MD 1210 [facility] [address] [place] [address] PCP - General Family Medicine 12/25/22 Romulo Kendall MD 1210 [facility] [address] [place] [address] Referring Physician Family Medicine 12/25/22 documented as of this encounter
--- OUTSIDE RECORDS SUMMARY | 2025-02-22 09:10 | XMS_ITS | Encounter Summary ---
Author Organization [employer] ([place], [place], [place], [place], [place]) Address [address] [place] [address] Care Team Providers Care Industrial Accountant Name Role Phone Juan José Kendall MD Primary Care Provider + [phone] Juan José Kendall MD Unavailable [phone] Encounter Details Date Type Department Care Team (Late st Contact Info) Description 09/06/2018 Transcribed Document [facility] [place] [facility] [place] [address] ProviderLaurie MD [address] [place] [address] Social History Tobacco Use Types Packs/Day Years [...] 09/06/2018 8:32 EDT by JAYE MAYFIELD Care Management-Safety Representative Care Management Progress Note Discharge Arrangements : Patient Post-Acute Information Patient Name: TRUDI BLAIR Gender: Female : [birth year] Age: 63 Years No Post-Acute Placement(s) Listed No Post-Acute Service(s) Listed No [place] Referral(s) Listed Discharge Options Discussed with Patient : Acute rehabilitation, Short term rehabilitation JAYE MAYFIELD Care Management-Safety Representative - 09/06/2018 8:32 EDT Narrative Progress Note Narrative Progress Note : REFERRAL MADE TO LTAC JAYE MAYFIELD Care Management-Safety Representative - 09/06/2018 8:32 EDT Electronically signed by [facility], [facility] Conversion Driller Operator Cerner at 07/24/2022 3:47 PM CDT documented in this encounter Plan of Treatment Not on file documented as of this encounter Visit Diagnoses Not on filedocumented in this encounter Care Teams Industrial Accountant Relationship Specialty Start Date End Date Juan José Kendall MD 1210 [facility] [address] [place] [address] PCP - General Family Medicine 12/25/22 Juan José Kendall MD 1210 [facility] [address] [place] [address] Referring Physician Family Medicine 12/25/22 documented as of this encounter
--- OUTSIDE RECORDS SUMMARY | 2025-02-22 09:10 | XMS_ITS | Encounter Summary ---
Author Organization [employer] ([place], [place], [place], [place]) Address [address] [place] [address] Care Team Providers Care Contract Modeler Name Role Phone Juan José Kendall MD Primary Care Provider + [phone] Juan José Kendall MD Unavailable [phone] Encounter Details Date Type Department Care Team (Late st Contact Info) Description 09/06/2018 Transcribed Document [facility] [place] [address] [place] [address] ProviderLaurie MD [address] [place] [address] Social History Tobacco Use Types Packs/Day Years Used Date Smoking Tobacco: Never Assessed Comments Unknown Sex and Gender Information Value Date Recorded Sex Assigned at Not on file Legal Sex Female 2:23 PM CDT Gender Identity Not on file Sexual Orientation Not on file documented as of this encounter Miscellaneous Notes * Cerner Conversion Note - Historical MD Jose - 09/06/2018 9:19 AM CDT Patient: TRUDI BLAIR Age: 63 years Sex: Female : 1955 Associated Diagnoses: None Author: LINDA MARQUEZ MD-NEP Subjective stable overnight. Objective VS/Measurements Vitals Signs (last 24 hrs) Last Charted Minimum Maximum Temp 98 (SEP 06 05:51) 97.8 (SEP 05 22:22) 98.1 (EDGARD 04 01:35) Apical HR 75 (EDGARD 04 08:51) [...] 05:51) L 93 (EDGARD 03 18:22) 100 (EDGARD 03 22:22) Intake & Output Totals Last 24 [...] 03) L 7.7 (EDGARD 02) L 8.1 (EDGARD 01) HCT L 24.8 (EDGARD 04) L 24.9 (EDGARD 03) L 24.2 (EDGARD 02) L 24.9 (EDGARD 01) Plt 280 (EDGARD 04) 222 (EDGARD 03) 170 (EDGARD 02) L 162 (EDGARD 01) Na 146 (EDGARD 04) 143 (EDGARD 03) 146 (EDGARD 02) 144 (EDGARD 01) K L 3.3 (EDGARD 04) L 3.2 (EDGARD 03) L 3.2 (EDGARD 03) L 3.1 (SEP 04) Cl 112 (SEP 06) 111 (SEP 03) H 114 (SEP 04) H 114 (SEP 03) CO2 27 (SEP [...] evaluating. getting abx Electronically signed by Aleks, [facility] Conversion Vehicle Check In Clerk Cerner at 07/24/2022 3:40 PM CDT documented in this encounter Plan of Treatment Not on file documented as of this encounter Visit Diagnoses Not on filedocumented in this encounter Care Teams Contract Modeler Relationship Specialty Start Date End Date Juan José Kendall MD 1210 [facility] [address] [place] [address] PCP - General Family Medicine 12/25/22 Juan José Kendall MD 1210 [facility] [address] [place] [address] Referring Physician Family Medicine 12/25/22 documented as of this encounter
--- OUTSIDE RECORDS SUMMARY | 2025-02-22 09:11 | XMS_ITS | Encounter Summary ---
Author Organization [employer] ([place], [place], [place], [place], [place]) Address [address] [place] [address] Care Team Providers Care Salvationist Name Role Phone Juan José Kendall MD Primary Care Provider +- [phone] Juan José Kendall MD Unavailable [phone] Encounter Details Date Type Department Care Team (Late st Contact Info) Description 09/23/2018 Transcribed Document [facility] [place] Family Medicine [address] [place] [address] ProviderLaurie MD [address] [place] [address] Social History Tobacco Use Types Packs/Day Years Used Date Smoking Tobacco: Never Assessed Comments Unknown Sex and Gender Information Value Date Recorded Sex Assigned at Not on file Legal Sex Female 2:23 PM CDT Gender Identity Not on file Sexual Orientation Not on file documented as of this encounter Miscellaneous Notes * Cerner Conversion Note - Laurie ProviderMD - 09/23/2018 3:00 PM CDT Pain Assessment Entered On: 09/23/2018 16:54 EDT Performed On: 09/23/2018 15:09 EDT by FRANTZ BROWN RN Intervention Information: acetaminophen Performed by FRANTZ [...] on filedocumented in this encounter Care Teams Salvationist Relationship Specialty Start Date End Date Juan José Kendall MD 1210 [facility] [address] [place] [address] PCP - General Family Medicine 12/25/22 Juan José Kendall MD [address] [place] [address] [address] [place] [address] Referring Physician Family Medicine 12/25/22 documented as of this encounter
--- OUTSIDE RECORDS SUMMARY | 2025-02-22 09:11 | XMS_ITS | Encounter Summary ---
Author Organization [employer] ([place], [place], [place], [place], [place]) Address [address] [place] [address] Care Team Providers Care Cuff Runner Name Role Phone Juan José Kendall MD Primary Care Provider + [phone] Juan José Kendall MD Unavailable [phone] Encounter Details Date Type Department Care Team (Late st Contact Info) Description 08/31/2018 Transcribed Document [facility] [place] Family Medicine [address] [place] [address] ProviderLaurie MD [address] [place] [address] Social History Tobacco Use Types Packs/Day Years Used Date Smoking Tobacco: Never Assessed Comments Unknown Sex and Gender Information Value Date Recorded Sex Assigned at Not on file Legal Sex Female 2:23 PM CDT Gender Identity Not on file Sexual Orientation Not on file documented as of this encounter Miscellaneous Notes * Cerner Conversion Note - Laurie ProviderMD - 08/31/2018 12:52 PM CDT [facility] Authorization Entered On: 08/31/2018 12:53 EDT Performed On: 08/31/2018 12:52 EDT by Inder Cowan Mkt Batcher Operator-Utilization Mgt Primary Insurance Authorization Authorization and Policy Numbers : Insurance 1 Health Plan: ANTHEM HMOPPO Policy Number: Authorization Number: Insurance 2 Health Plan: MEDICARE Policy Number: [id number] Authorization Number: Insurance Primary Name : Luz MMM Authorization Status-Primary : Admit approved Authorization Number-Primary : [id number] Number of Days Authorized-Primary : DRG Authorization Comments-Primary : Per Availity site (referred to different section than normal), inpt admission approved. Auth noted. Will need d/c date called. Historical Authorization Comments-Primary : No Authorization Comments Found Inder Cowan Mkt Batcher Operator-Utilization Mgt - 08/31/2018 12:52 EDT documented in this encounter Plan of Treatment Not on file documented as of this encounter Visit Diagnoses Not on filedocumented in this encounter Care Teams Cuff Runner Relationship Specialty Start Date End Date Juan José Kendall MD [address] [place] [facility] [address] [place] [address] PCP - General Family Medicine 12/25/22 Juan José Kendall MD [address] [place] [facility] [address] [place] [address] Referring Physician Family Medicine 12/25/22 documented as of this encounter
--- OUTSIDE RECORDS SUMMARY | 2025-02-22 09:11 | XMS_ITS | Encounter Summary ---
Author Organization [employer] ([place], [place], [place], [place], [place]) Address [address] [place] [address] Care Team Providers Care Astrophysics Professor Name Role Phone Juan José Kendall MD Primary Care Provider + [phone] Juan José Kendall MD Unavailable [phone] Encounter Details Date Type Department Care Team (Late st Contact Info) Description 09/23/2018 Transcribed Document [facility] [place] [address] [place] [address] ProviderLaurie MD [address] [place] [address] Social History Tobacco Use Types Packs/Day Years [...] Performed On: 09/23/2018 18:00 EDT by FRANTZ BROWN RN Patch Check Patch Check Result : Yes Patch Check - Type of Patch : scopolamine (Transderm-Scop) FRANTZ BROWN RN - 09/23/2018 16:53 EDT documented in this encounter Plan of Treatment Not on file documented as of this encounter Visit Diagnoses Not on filedocumented in this encounter Care Teams Astrophysics Professor Relationship Specialty Start Date End Date Juan José Kendall MD [address] [place] [address] [place] [address] PCP - General Family Medicine 12/25/22 Juan José Kendall MD [address] [place] [address] [place] [address] Referring Physician Family Medicine 12/25/22 documented as of this encounter
--- OUTSIDE RECORDS SUMMARY | 2025-02-22 09:11 | XMS_ITS | Encounter Summary ---
Author Organization [employer] ([place], [place], [place], [place], [place]) Address [address] [place] [address] Care Team Providers Care Field Artillery Crewmember Name Role Phone Juan José Kendall MD Primary Care Provider + [phone] Juan José Kendall MD Unavailable [phone] Encounter Details Date Type Department Care Team (Late st Contact Info) Description 09/06/2018 Transcribed Document [facility] [place] [facility] [place] [address] Laurie Garcia MD [address] [place] [address] Social History Tobacco Use Types Packs/Day Years Used Date Smoking Tobacco: Never Assessed Comments Unknown Sex and Gender Information Value Date Recorded Sex Assigned at Not on file Legal Sex Female 2:23 PM CDT Gender Identity Not on file Sexual Orientation Not on file documented as of this encounter Miscellaneous Notes * Cerner Conversion Note - Laurie Garcia MD - 09/06/2018 6:20 PM CDT Patient: TRUDI [...] mL 700 mg 14 mL, IV Piggyback, [id number] docusate sodium 100 mg cap 100 mg [...] 18.2 % LOW Lymph # 1.31 K/uL [place] % 10.3 % [place] # 0.74 K/uL Eos % 8.8 % [...] 18.9 % LOW Lymph # 1.26 K/uL [place] % 10.2 % [place] # 0.68 K/uL Eos % 9.3 % [...] filedocumented in this encounter Care Teams Field Artillery Crewmember Relationship Specialty Start Date End Date Juan José Kendall MD [address] [place] [facility] [address] [place] [address] PCP - General Family Medicine 12/25/22 Juan José Kendall MD [address] [place] [facility] [address] [place] [address] Referring Physician Family Medicine 12/25/22 documented as of this encounter
--- OUTSIDE RECORDS SUMMARY | 2025-02-22 09:11 | XMS_ITS | Encounter Summary ---
Author Organization [employer] ([place], [place], [place], [place], [place]) Address [address] [place] [address] Care Team Providers Care Nurse Healthcare Manager Name Role Phone Juan José Kendall MD Primary Care Provider + [phone] Juan José Kendall MD Unavailable [phone] Encounter Details Date Type Department Care Team (Late st Contact Info) Description 09/05/2018 Transcribed Document [facility] [place] [facility] [place] [address] Laurie Garcia MD [address] [place] [address] Social History Tobacco Use Types Packs/Day Years Used Date Smoking Tobacco: Never Assessed Comments Unknown Sex and Gender Information Value Date Recorded Sex Assigned at Not on file Legal Sex Female 2:23 PM CDT Gender Identity Not on file Sexual Orientation Not on file documented as of this encounter Miscellaneous Notes * Cerner Conversion Note - Laurie Garcia MD - 09/05/2018 1:11 PM CDT Patient: TRUDI [...] no trouble w. urination. ???Improving renal functions Stable H&H E???On IV iron infusion ???On [...] mL 700 mg 14 mL, IV Piggyback, [id number] docusate sodium 100 mg cap 100 mg [...] 18.9 % LOW Lymph # 1.26 K/uL [place] % 10.2 % [place] # 0.68 K/uL E[place] % 9.3 % [...] % LOW Lymph # 0.94 K/uL LOW [place] % 9.9 % [place] # 0.66 K/uL [place]os % 9.6 % [...] precautions -Sleep apnea precautions -Discharge plan to [facility] facility/rehabilitation/[facility]. Orders Order Profile (Selected) Inpatient Orders [...] on filedocumented in this encounter Care Teams Nurse Healthcare Manager Relationship Specialty Start Date End Date Juan José Kendall MD [address] [place] [facility] [address] [place] [address] PCP - General Family Medicine 12/25/22 Juan José Kendall MD [address] [place] [facility] [address] [place] [phone] Referring Physician Family Medicine 12/25/22 documented as of this encounter
--- OUTSIDE RECORDS SUMMARY | 2025-02-22 09:11 | XMS_ITS | Encounter Summary ---
Author Organization [employer] ([place], [place], [place], [place], [place]) Address [address] [place] [address] Care Team Providers Care Vp Informatics Name Role Phone Juan José Kendall MD Primary Care Provider + [phone] Juan José Kendall MD Unavailable [phone] Encounter Details Date Type Department Care Team (Late st Contact Info) Description 09/11/2018 Transcribed Document [facility] [place] [address] [place] [address] ProviderLaurie MD [address] [place] [address] Social History Tobacco Use Types Packs/Day Years [...] on filedocumented in this encounter Care Teams Vp Informatics Relationship Specialty Start Date End Date Juan José Kendall MD [address] [place] [phone] PCP - General Family Medicine 12/25/22 Juan José Kendall MD [address] [place] [phone] Referring Physician Family Medicine 12/25/22 documented as of this encounter
--- OUTSIDE RECORDS SUMMARY | 2025-02-22 09:11 | XMS_ITS | Encounter Summary ---
Author Organization [employer] ([place], [place], [place], [place], [place]) Address [address] [place] [address] Care Team Providers Care Alley Cleaner Name Role Phone Juan José Kendall MD Primary Care Provider +- [phone] Juan José Kendall MD Unavailable [phone] Encounter Details Date Type Department Care Team (Late st Contact Info) Description 08/31/2018 Transcribed Document [facility] [place] Family Medicine [address] [place] [address] ProviderLaurie MD [address] [place], [place] [address] Social History Tobacco Use Types Packs/Day Years Used Date Smoking Tobacco: Never Assessed Comments Unknown Sex and Gender Information Value Date Recorded Sex Assigned at Not on file Legal Sex Female 2:23 PM CDT Gender Identity Not on file Sexual Orientation Not on file documented as of this encounter Miscellaneous Notes * Cerner Conversion Note - Laurie Garcia MD - 08/31/2018 8:02 AM CDT Patient: TRUDI BLAIR Age: 63 years Sex: Female : 1955 Associated Diagnoses: None Author: LINDA MARQUEZ MD-[facility] Subjective Objective VS/Measurements Vitals Signs [...] intially elevated to 2.4 on admit from [facility] 0.9 06/2018. pt with multiple admssion to outside hosptial. transferred here with multiple infections, hypotension, multiple abx. Pharmacy doseing vanc. avoid vanc toxicity. HTN: BP low side. w ill cut back on metoprolol. Anemia: transfuse PRN for Hgb < 7. Multiple infections: ID evaluating high risk and complexity pt #[id number] Electronically signed by Aleks, [facility] Conversion Linter Operator Cerner at 07/24/2022 3:55 PM CDT documented [...] Medicine 12/25/22 Juan José Kendall MD 1210 [facility] [address] [place] [phone] Referring Physician Family Medicine 12/25/22 documented as of this encounter
--- OUTSIDE RECORDS SUMMARY | 2025-02-22 09:11 | XMS_ITS | Encounter Summary ---
Author Organization [employer] ([place], [place], [place], [place], [place]) Address [address] [place] [address] Care Team Providers Care Instruction Librarian Name Role Phone Juan José Kendall MD Primary Care Provider +- [phone] Juan José Kendall MD Unavailable [phone] Encounter Details Date Type Department Care Team (Late st Contact Info) Description 09/23/2018 Transcribed Document [facility] [place] Family Medicine [address] [place] [address] ProviderLaurie MD [address] [place] [address] Social History Tobacco Use Types Packs/Day Years Used Date Smoking Tobacco: Never Assessed Comments Unknown Sex and Gender Information Value Date Recorded Sex Assigned at Not on file Legal Sex Female 2:23 PM CDT Gender Identity Not on file Sexual Orientation Not on file documented as of this encounter Miscellaneous Notes * Cerner Conversion Note - Historical ProviderMD - 09/23/2018 12:34 PM CDT Patient: [...] Bethany Mo, SriniD Electronically signed by Aleks [facility] Conversion Shot Peen Operator Cerner at 07/24/2022 3:52 PM CDT documented in this encounter Plan of Treatment Not on file documented as of this encounter Visit Diagnoses Not on filedocumented in this encounter Care Teams Instruction Librarian Relationship Specialty Start Date End Date Juan José Kendall MD 1210 [facility] [address] [place] [address] PCP - General Family Medicine 12/25/22 Juan José Kendall MD 1210 [facility] [address] [place] [address] Referring Physician Family Medicine 12/25/22 documented as of this encounter
--- OUTSIDE RECORDS SUMMARY | 2025-02-22 09:11 | XMS_ITS | Encounter Summary ---
Author Organization [employer] ([place], [place], [place], [place], [place]) Address [address] [place] [address] Care Team Providers Care Multi Media Specialist Name Role Phone Juan José Kendall MD Primary Care Provider +- [phone] Juan José Kendall MD Unavailable [phone] Encounter Details Date Type Department Care Team (Late st Contact Info) Description 09/11/2018 Transcribed Document [facility] [place] [address] [place] [address] ProviderLaurie MD [address] [place] [address] Social History Tobacco Use Types Packs/Day Years [...] on filedocumented in this encounter Care Teams Multi Media Specialist Relationship Specialty Start Date End Date Juan José Kendall MD [address] [facility] [address] [place] [address] PCP - General Family Medicine 12/25/22 Juan José Kendall MD 12[address] [facility] [address] [place] [address] Referring Physician Family Medicine 12/25/22 documented as of this encounter
--- OUTSIDE RECORDS SUMMARY | 2025-02-22 09:11 | XMS_ITS | Encounter Summary ---
Author Organization [employer] ([place], [place], [place], [place], [place]) Address [address] [place] [address] Care Team Providers Care Nitrogen Operator Name Role Phone Juan José Kendall MD Primary Care Provider +- [phone] Juan José Kendall MD Unavailable [phone] Encounter Details Date Type Department Care Team (Late st Contact Info) Description 09/05/2018 Transcribed Document [facility] [place] [facility] [place] [address] ProviderLaurie MD [address] [place] [address] Social History Tobacco Use Types Packs/Day Years Used Date Smoking Tobacco: Never Assessed Comments Unknown Sex and Gender Information Value Date Recorded Sex Assigned at Not on file Legal Sex Female 2:23 PM CDT Gender Identity Not on file Sexual Orientation Not on file documented as of this encounter Miscellaneous Notes * [employer]ner Conversion Note - Laurie ProviderMD - 09/05/2018 2:00 AM CDT Food Service Utility Worker Details Entered On: 09/05/2018 4:42 EDT Performed [...] Anali Hicks Rn - 09/05/2018 4:42 EDT Electronically signed by Aleks [facility] Conversion Senior Embedded Software Engineer Cerner at 07/24/2022 3:49 PM CDT documented in this encounter Plan of Treatment Not on file documented as of this encounter Visit Diagnoses Not on filedocumented in this encounter Care Teams Nitrogen Operator Relationship Specialty Start Date End Date Juan José Kendall MD [address] [facility] [address] [place] [address] PCP - General Family Medicine 12/25/22 Juan José Kendall MD [address] [facility] [address] [place] [address] Referring Physician Family Medicine 12/25/22 documented as of this encounter
--- OUTSIDE RECORDS SUMMARY | 2025-02-22 09:12 | XMS_ITS | Encounter Summary ---
Author Organization [employer] ([place], [place], [place], [place], [place]) Address [address] [place] [address] Care Team Providers Care Trimming Press Operator Name Role Phone Juan José Kendall MD Primary Care Provider + [phone] Juan José Kendall MD Unavailable [phone] Encounter Details Date Type Department Care Team (Late st Contact Info) Description 09/22/2018 Transcribed Document [facility] [place] [address] [place] [address] ProviderLaurie MD [address] [place] [address] Social History Tobacco Use Types Packs/Day Years [...] on filedocumented in this encounter Care Teams Trimming Press Operator Relationship Specialty Start Date End Date Juan José Kenadll MD [address] [place] [address] [place] [address] PCP - General Family Medicine 12/25/22 Juan José eKndall MD [address] [place] [address] [place] [address] Referring Physician Family Medicine 12/25/22 documented as of this encounter
--- OUTSIDE RECORDS SUMMARY | 2025-02-22 09:12 | XMS_ITS | Encounter Summary ---
Author Organization [employer] ([place], [place], [place], [place], [place]) Address [address] [place] [address] Care Team Providers Care Parker Name Role Phone Juan José Kendall MD Primary Care Provider + [phone] Juan José Kendall MD Unavailable +[phone] Encounter Details Date Type Department Care Team (Late st Contact Info) Description 09/11/2018 Transcribed Document [facility] [place] Medicine [address] [place] [address] ProviderLaurie MD [address] [place] [address] Social History Tobacco Use Types Packs/Day Years Used Date Smoking Tobacco: Never Assessed Comments Unknown Sex and Gender Information Value Date Recorded Sex Assigned at Not on file Legal Sex Female 2:23 PM CDT Gender Identity Not on file Sexual Orientation Not on file documented as of this encounter Miscellaneous Notes * Cerner Conversion Note - Historical ProviderMD - 09/11/2018 5:00 AM CDT Chart [...] on filedocumented in this encounter Care Teams Parker Relationship Specialty Start Date End Date Juan José Kendall MD [address] [place] [address] [place] [address] PCP - General Family Medicine 12/25/22 Juan José Kendall MD [address] [place] [address] [place] [address] Referring Physician Family Medicine 12/25/22 documented as of this encounter
--- OUTSIDE RECORDS SUMMARY | 2025-02-22 09:12 | XMS_ITS | Encounter Summary ---
Author Organization [employer] ([place], [place], [place], [place], [place]) Address [address] [place] [address] Care Team Providers Care Unit Leader Name Role Phone Juan José Kendall MD Primary Care Provider + [phone] Juan José Kendall MD Unavailable [phone] Encounter Details Date Type Department Care Team (Late st Contact Info) Description 09/23/2018 Transcribed Document [facility] [place] Family Medicine [address] [place] [address] ProviderLaurie MD [address] [place] [address] Social History Tobacco Use Types Packs/Day Years [...] pastoral prayer; Ms. Blair and expressed gratitude Buddhism Preference : Baptism MOHINDER MARTINES - 09/23/2018 16:03 EDT documented in this encounter Plan of Treatment Not on file documented as of this encounter Visit Diagnoses Not on filedocumented in this encounter Care Teams Unit Leader Relationship Specialty Start Date End Date Juan José Kendall MD [address] [facility] [address] [place] [phone] PCP - General Family Medicine 12/25/22 Juan José Kendall MD [address] [place] [facility] [address] [place] [address] Referring Physician Family Medicine 12/25/22 documented as of this encounter
--- OUTSIDE RECORDS SUMMARY | 2025-02-22 09:12 | XMS_ITS | Encounter Summary ---
Author Organization [employer] ([place], [place], [place], [place], [place]) Address [address] [place] [address] Care Team Providers Care Cambering Machine Operator Name Role Phone Juan José Kendall MD Primary Care Provider +- [phone] Juan José Kendall MD Unavailable [phone] Encounter Details Date Type Department Care Team (Late st Contact Info) Description 09/11/2018 Transcribed Document [facility] [place] Family Medicine [address] [place] [address] ProviderLaurie MD [address] [place] [address] Social History Tobacco Use Types Packs/Day Years [...] on filedocumented in this encounter Care Teams Cambering Machine Operator Relationship Specialty Start Date End Date Juan José Kendall MD 1210 [facility] [address] [place] [phone] PCP - General Family Medicine 12/25/22 Juan José Kendall MD 12[address] [facility] [address] [place] [phone] Referring Physician Family Medicine 12/25/22 documented as of this encounter
--- OUTSIDE RECORDS SUMMARY | 2025-02-22 09:12 | XMS_ITS | Encounter Summary ---
Author Organization [employer] ([place], [place], [place], [place], [place]) Address [address] [place] [address] Care Team Providers Care Paper Coating Machine Operator Name Role Phone Juan José Kendall MD Primary Care Provider + [phone] Juan José Kendall MD Unavailable [phone] Encounter Details Date Type Department Care Team (Late st Contact Info) Description 08/31/2018 Transcribed Document [facility] [place] Family Medicine [address] [place] [address] ProviderLaurie MD [address] [place] [address] Social History Tobacco Use Types Packs/Day Years Used Date Smoking Tobacco: Never Assessed Comments Unknown Sex and Gender Information Value Date Recorded Sex Assigned at Not on file Legal Sex Female 2:23 PM CDT Gender Identity Not on file Sexual Orientation Not on file documented as of this encounter Miscellaneous Notes * Cerner Conversion Note - Laurie Garcia MD - 08/31/2018 6:28 PM CDT Consult Phone Call Documentation Entered On: 08/31/2018 18:43 EDT Performed On: 08/31/2018 18:28 EDT by SHEN WOODS Phone Call for Consults Consult Phone Call/Page Attempt : First call Physician Requesting Consult : JONES HIDALGO MD-INT Physician Requested for Consult : JONG SANTACRUZ MD-ORT Physician Covering for Consult : JONG SANTACRUZ MD-ORT Date and Time Call Returned : 08/31/2018 18:43 EDT SHEN WOODS - 08/31/2018 18:43 EDT documented in this encounter Plan of Treatment Not on file documented as of this encounter Visit Diagnoses Not on filedocumented in this encounter Care Teams Paper Coating Machine Operator Relationship Specialty Start Date End Date Juan José Kendall MD [address] [facility] [address] [place] [phone] PCP - General Family Medicine 12/25/22 Juan José Kendall MD [address] [facility] [address] [place] [phone] Referring Physician Family Medicine 12/25/22 documented as of this encounter
--- OUTSIDE RECORDS SUMMARY | 2025-02-22 09:12 | XMS_ITS | Encounter Summary ---
Author Organization [employer] ([place], [place], [place], [place], [place]) Address [address] [place] [address] Care Team Providers Care Sed Middle School Teacher Name Role Phone Juan José Kendall MD Primary Care Provider + [phone] Juan José Kendall MD Unavailable [phone] Encounter Details Date Type Department Care Team (Late st Contact Info) Description 08/31/2018 Transcribed Document [facility] [place] [facility] [address] Laurie Garcia MD [address] [place] [address] Social History Tobacco Use Types Packs/Day Years Used Date Smoking Tobacco: Never Assessed Comments Unknown Sex and Gender Information Value Date Recorded Sex Assigned at Not on file Legal Sex Female 2:23 PM CDT Gender Identity Not on file Sexual Orientation Not on file documented as of this encounter Miscellaneous Notes * Cerner Conversion Note - Historical MD Jose - 08/31/2018 5:27 PM CDT DATE OF PROCEDURE: 08/31/2018 PREOPERATIVE DIAGNOSIS(ES): Chronic persistent infection, 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 PROCEDURE: Removal of previously inserted polypropylene mesh and hardware, explantation of left total knee, insertion of polymethylmethacrylate spacer. SURGEON: Shay Guerrero MD FABRICATION MIG WELDER: Efren Garcia PA-C INDICATION FOR SURGERY: Patient had extensor apparatus reconstruction done approximately two months ago which she subsequently had localized dehiscence of her wound and turned out to have a deep infection and was temporarily septic, treated at another hospital and transferred to [place] for definitive care. PROCEDURE IN DETAIL: The [...] Trans: 08/31/2018 22:28:53 CC1: Shay Guerrero M.D. documented in this encounter Plan of Treatment Not on file documented as of this encounter Visit Diagnoses Not on filedocumented in this encounter Care Teams Sed Middle School Teacher Relationship Specialty Start Date End Date Juan José Kendall MD [address] [facility] [address] [place] [address] PCP - General Family Medicine 12/25/22 Juan José Kendall MD 12[address] [facility] [address] [facility] [place] [address] Referring Physician Family Medicine 12/25/22 documented as of this encounter
--- OUTSIDE RECORDS SUMMARY | 2025-02-22 09:12 | XMS_ITS | Encounter Summary ---
Author Organization [employer] ([place], [place], [place], [place], [place]) Address [address] [place] [address] Care Team Providers Care Special Diet Cook Name Role Phone Juan José Kendall MD Primary Care Provider + [phone] Juan José Kendall MD Unavailable [phone] Encounter Details Date Type Department Care Team (Late st Contact Info) Description 10/05/2018 Transcribed Document [facility] [place] Family Medicine [address] [place] [address] ProviderLaurie MD [address] [place] [address] Social History Tobacco Use Types Packs/Day Years [...] NATALEE DALEY, PT - 10/05/2018 14:49 EDT Electronically signed by Aleks [facility] Conversion Performance Solutions Specialist Cerner at 07/24/2022 3:34 PM CDT documented in this encounter Plan of Treatment Not on file documented as of this encounter Visit Diagnoses Not on filedocumented in this encounter Care Teams Special Diet Cook Relationship Specialty Start Date End Date Juan José Kendall MD [address] [place] [phone] PCP - General Family Medicine 12/25/22 Juan José Kendall MD [address] [place] [facility] [address] [place] [address] Referring Physician Family Medicine 12/25/22 documented as of this encounter
--- OUTSIDE RECORDS SUMMARY | 2025-02-22 09:12 | XMS_ITS | Encounter Summary ---
Author Organization [employer] ([place], [place], [place], [place], [place]) Address [address] [place] [address] Care Team Providers Care Livestock Producer Name Role Phone Juan José Kendall MD Primary Care Provider + [phone] Juan José Kendall MD Unavailable [phone] Encounter Details Date Type Department Care Team (Late st Contact Info) Description 10/05/2018 Transcribed Document [facility] [place] [address] [place] [address] ProviderLaurie MD [address] [place] [address] Social History Tobacco Use Types Packs/Day Years [...] Note : 10/05/2018 Clinical review faxed to [facility] ([phone]) to request coverage for continued LTACH services. Approval pending. Auth# [id number]. Care Management Note Report : PJ NELSON - 10/05/18 08:47:08 Patient/ chose [facility]. Per Ashley, insurance preauth was started, awaiitng response. PJ NELSON 10/04/18 10:04:33 10/04/[address] [facility]. Family notified,now requesting to reconsider [facility]. I have explained that we need an answer for which place the prefer so that we can move forward with placement. states he will call both facilities, and they will make a decision. PJ NELSON 10/03/18 15:02:06 10/03/2018 Spoke with [facility], they do not have a contract with [facility]. PJ NELSON 10/03/18 14:57:34 10/03/2018 Call received from [facility], they are unable to offer a bed for this patient. Patient and notified. They request a referral be faxed to [facility] (P: [phone] F: [phone]), faxed per their request. Awaiting a call [...] it be close to her home in [place]. Referrals faxed to Debbie Patricia (Signature liaison), [facility], and [facility]. Awaiting a call back. PJ NELSON 09/28/18 16:26:43 09/28/2018 Fax recieved from [facility] with approval for LTACH services 09/29-10/04. Auth# [id number]. Fax next clinical review to [phone] on 10/05/2018. PJ NELSON 09/28/18 08:24:24 09/28/2018 Clinical review faxed to [facility] ([phone]) to request coverage for continued LTACH services. Approval pending. Auth# [id number]. PJ NELSON - 09/21/18 15:48:14 09/21/2018 Fax recieved from [facility] with approval for LTACH coverage 09/22/2018-09/28/2018. Auth# [id number]. Fax next clinical review to [phone] on 09/28/2018. PJ NELSON - 09/21/18 08:22:57 09/21/2018 Clinical review faxed to [facility] ([phone]) to request coverage for continued LTACH services. Approval pending. Auth# [id number]. PJ NELSON - 09/15/18 11:34:17 09/15/2018 Fax recieved from [facility] with approval for LTACH services 09/15-09/21/2018. Auth# [id number]. Fax next clinical review to [phone] on 09/21/2018. PJ NELSON - 09/14/18 08:28:49 09/14/2018 [facility][phone][facility] to request coverage for continued LTACH services. Approval pending. Auth# [id number]. Chuyita Briceno, Clinical Assessment Liaison - 09/09/18 [...] PCP- [facility]. [facility] Orthopedic- Dr. Shya Guerrero [facility] [place] The patient does wish to return home upon discharge but understands that rehab/SNF may be needed. All papers were explained and signed. No other issues. CM will continue to monitor. Documentation Status Complete : Jerry PJ NELSON - 10/05/2018 8:54 EDT Electronically signed by [facility] Conversion Director Of Training Cerner at 07/24/2022 3:32 PM CDT documented in this encounter Plan of Treatment Not on file documented as of this encounter Visit Diagnoses Not on filedocumented in this encounter Care Teams Livestock Producer Relationship Specialty Start Date End Date [...]
--- OUTSIDE RECORDS SUMMARY | 2025-02-22 09:12 | XMS_ITS | Encounter Summary ---
Author Organization [employer] ([place], [place], [place], [place], [place]) Address [address] [place] [address] Care Team Providers Care Mail Clerk Name Role Phone Juan José Kendall MD Primary Care Provider +- [phone] Juan José Kendall MD Unavailable [phone] Encounter Details Date Type Department Care Team (Late st Contact Info) Description 09/10/2018 Transcribed Document [facility] [place] Family Medicine [address] [place] [address] ProviderLaurie MD [address] [place] [address] Social History Tobacco Use Types Packs/Day Years [...] Performed On: 09/10/2018 16:55 EDT by ORLY RICHARDS RN Intervention Information: acetaminophen Performed by ORLY RICHARDS RN on 09/10/2018 15:55:00 EDT acetaminophen,500mg Oral [...] on filedocumented in this encounter Care Teams Mail Clerk Relationship Specialty Start Date End Date Juan José Kendall MD [address] [facility] [address] [place] [address] PCP - General Family Medicine 12/25/22 Juan José Kendall MD [address] [facility] [address] [place] [address] Referring Physician Family Medicine 12/25/22 documented as of this encounter
--- OUTSIDE RECORDS SUMMARY | 2025-02-22 09:12 | XMS_ITS | Encounter Summary ---
Author Organization [employer] ([place], [place], [place], [place], [place]) Address [address] [place] [address] Care Team Providers Care Lay Out Inspector Name Role Phone Juan José Kendall MD Primary Care Provider +- [phone] Juan José Kendall MD Unavailable [phone] Encounter Details Date Type Department Care Team (Late st Contact Info) Description 09/23/2018 Transcribed Document [facility] [place] Family Medicine [address] [place] [address] ProviderLaurie MD [address] [place] [address] Social History Tobacco Use Types Packs/Day Years Used Date Smoking Tobacco: Never Assessed Comments Unknown Sex and Gender Information Value Date Recorded Sex Assigned at Not on file Legal Sex Female 2:23 PM CDT Gender Identity Not on file Sexual Orientation Not on file documented as of this encounter Miscellaneous Notes * Cerner Conversion Note - Laurie ProviderMD - 09/23/2018 2:13 PM CDT Height and Weight, Routine Entered On: 09/23/2018 17:47 EDT Performed On: 09/23/2018 17:47 EDT by FRANTZ BROWN RN Height and Weight, Routine Routine Weight Source : Bed scale Routine Weight Entry Format : Atlantic Routine Weight, Pounds : 286 lb Routine Weight Calculation : 130 kg Height Source : Chart Height Entry Format : Metric Clinical Height : 167.6 cm Height, Centimeters : 167.6 cm Body Surface Area (BSA), Routine : 2.33 m2 Body Mass Index (BMI), Routine : 46.28 kg/m2 FRANTZ BROWN, RN - 09/23/2018 17:47 EDT documented in this encounter Plan of Treatment Not on file documented as of this encounter Visit Diagnoses Not on filedocumented in this encounter Care Teams Lay Out Inspector Relationship Specialty Start Date End Date Juan José Kendall MD [address] [facility] [address] [place] [address] PCP - General Family Medicine 12/25/22 Juan José Kendall MD [address] [place] [address] Referring Physician Family Medicine 12/25/22 documented as of this encounter
--- OUTSIDE RECORDS SUMMARY | 2025-02-22 09:12 | XMS_ITS | Encounter Summary ---
Author Organization [employer] ([place], [place], [place], [place], [place]) Address [address] [place] [address] Care Team Providers Care Centrex Radio Operator Name Role Phone Juan José Kendall MD Primary Care Provider + [phone] Juan José Kendall MD Unavailable [phone] Encounter Details Date Type Department Care Team (Late st Contact Info) Description 08/31/2018 Transcribed Document [facility] [place] [address] Laurie Garcia MD [address] [place] [address] Social History Tobacco Use Types Packs/Day Years Used Date Smoking Tobacco: Never Assessed Comments Unknown Sex and Gender Information Value Date Recorded Sex Assigned at Not on file Legal Sex Female 2:23 PM CDT Gender Identity Not on file Sexual Orientation Not on file documented as of this encounter Miscellaneous Notes * Cerner Conversion Note - Laurie Garcia MD - 08/31/2018 12:53 PM CDT DATE OF [...] over the past couple of weeks to [facility] for confusion, acute renal failure, found [...] after diuresis. The patient denies any other [id number] NSAIDs. No other complaints at this time. [...] up to 2.9 on previous hospitalization at [facility]. Patient had been on Celebrex for several [...] on filedocumented in this encounter Care Teams Centrex Radio Operator Relationship Specialty Start Date End Date Juan José Kendall MD 12[address] [facility] [address] [place] [address] PCP - General Family Medicine 12/25/22 Juan José Kendall MD 12[address] [facility] [address] [place] [address] Referring Physician Family Medicine 12/25/22 documented as of this encounter
--- OUTSIDE RECORDS SUMMARY | 2025-02-22 09:12 | XMS_ITS | Encounter Summary ---
Author Organization [employer] ([place], [place], [place], [place], [place]) Address [address] [place] [address] Care Team Providers Care Health Data Administrator Name Role Phone Juan José Kendall MD Primary Care Provider +- [phone] Juan José Kendall MD Unavailable [phone] Encounter Details Date Type Department Care Team (Late st Contact Info) Description 09/23/2018 Transcribed Document [facility] [place] Medicine [address] [place] [address] Laurie Garcia MD [address] [place] [address] Social History Tobacco Use Types Packs/Day Years Used Date Smoking Tobacco: Never Assessed Comments Unknown Sex and Gender Information Value Date Recorded Sex Assigned at Not on file Legal Sex Female 2:23 PM CDT Gender Identity Not on file Sexual Orientation Not on file documented as of this encounter Miscellaneous Notes * Cerner Conversion Note - Laurie Garcia MD - 09/23/2018 7:22 PM CDT Height and [...] : Bed scale Weight Entry Format : [place] [facility] Dosing Weight : 130 kg Weight, Pounds : 286 lb Weight, Ounces : 0 oz Body Surface Area (BSA) : 2.33 m2 Body Mass Index : 46.3 kg/m2 (>HHI) [place] Body Weight : 59 kg FRANTZ BROWN, RN - 09/23/2018 19:22 EDT documented in this encounter Plan of Treatment Not on file documented as of this encounter Visit Diagnoses Not on filedocumented in this encounter Care Teams Health Data Administrator Relationship Specialty Start Date End Date Juan José Kendall MD [address] [facility] [address] [place] [address] PCP - General Family Medicine 12/25/22 Juan José Kendall MD [address] [facility] [address] [place] [address] Referring Physician Family Medicine 12/25/22 documented as of this encounter
--- OUTSIDE RECORDS SUMMARY | 2025-02-22 09:12 | XMS_ITS | Encounter Summary ---
Author Organization [employer] ([place], [place], [place], [place], [place]) Address [address] [place] [address] Care Team Providers Care Government Auditor Name Role Phone Juan José Kendall MD Primary Care Provider + [phone] Juan José Kendall MD Unavailable [phone] Encounter Details Date Type Department Care Team (Late st Contact Info) Description 08/31/2018 Transcribed Document [facility] [place] [address] [place] [address] ProviderLaurie MD [address] [place] [address] Social History Tobacco Use Types Packs/Day Years Used Date Smoking Tobacco: Never Assessed Comments Unknown Sex and Gender Information Value Date Recorded Sex Assigned at Not on file Legal Sex Female 2:23 PM CDT Gender Identity Not on file Sexual Orientation Not on file documented as of this encounter Miscellaneous Notes * Cerner Conversion Note - Laurie ProviderMD - 08/31/2018 5:00 AM CDT Chart [...] on filedocumented in this encounter Care Teams Government Auditor Relationship Specialty Start Date End Date Juan José Kendall MD [address] [place] [address] PCP - General Family Medicine 12/25/22 Juan José Kendall MD [address] [place] [address] [place] [address] Referring Physician Family Medicine 12/25/22 documented as of this encounter
--- OUTSIDE RECORDS SUMMARY | 2025-02-22 09:12 | XMS_ITS | Encounter Summary ---
Author Organization [employer] ([place], [place], [place], [place], [place]) Address [address] [place] [address] Care Team Providers Care Motorcycle Assembler Name Role Phone Juan José Kendall MD Primary Care Provider + [phone] Juan José Kendall MD Unavailable [phone] Encounter Details Date Type Department Care Team (Late st Contact Info) Description 09/10/2018 Transcribed Document [facility] [place] [address] [place] [address] ProviderLaurie MD [address] [place] [address] Social History Tobacco Use Types Packs/Day Years Used Date Smoking Tobacco: Never Assessed Comments Unknown Sex and Gender Information Value Date Recorded Sex Assigned at Not on file Legal Sex Female 2:23 PM CDT Gender Identity Not on file Sexual Orientation Not on file documented as of this encounter Miscellaneous Notes * Cerner Conversion Note - Historical ProviderMD - 09/10/2018 5:00 PM CDT Chart Check - Review Order Profile Entered On: 09/10/2018 16:05 EDT Performed On: 09/10/2018 17:00 EDT by ORLY RICHARDS, RN Chart Check Powerplans Initiated/Discontinued as Appropriate : Yes All Active Orders Reviewed : Yes ORLY RICHARDS, RN - 09/10/2018 16:05 EDT documented in this encounter Plan of Treatment Not on file documented as of this encounter Visit Diagnoses Not on filedocumented in this encounter Care Teams Motorcycle Assembler Relationship Specialty Start Date End Date Juan José Kendall MD [address] [place] [address] [place] [address] PCP - General Family Medicine 12/25/22 Juan José Kendall MD [address] [place] [address] [place] [address] Referring Physician Family Medicine 12/25/22 documented as of this encounter
--- OUTSIDE RECORDS SUMMARY | 2025-02-22 09:12 | XMS_ITS | Encounter Summary ---
Author Organization [employer] ([place], [place], [place], [place], [place]) Address [address] [place] [address] Care Team Providers Care Second Operator Name Role Phone Juan José Kendall MD Primary Care Provider +- [phone] Juan José Kendall MD Unavailable [phone] Encounter Details Date Type Department Care Team (Late st Contact Info) Description 09/23/2018 Transcribed Document [facility] [place] Family Medicine [address] [place] [address] Laurie Garcia MD [address] [place] [address] Social History Tobacco Use Types Packs/Day Years Used Date Smoking Tobacco: Never Assessed Comments Unknown Sex and Gender Information Value Date Recorded Sex Assigned at Not on file Legal Sex Female 2:23 PM CDT Gender Identity Not on file Sexual Orientation Not on file documented as of this encounter Miscellaneous Notes * Cerner Conversion Note - Laurie Garcia MD - 09/23/2018 12:54 PM CDT [facility] Inpatient Documentation Entered On: 09/23/2018 12:56 EDT Performed On: 09/23/2018 12:54 EDT by ALEX FREY RN WO Admission [...] Ulcer WOCN Wound Pressure Ulcer Documentation : Zjtevzsen-Arjhup-Irlt Abnormality: Knee Left Midline on 09/23/2018 11:30 [...] or brown) Bed Color(s): Brown Surrounding Tissue: [place] (Epithelialized) Drainage Amount: None Photographed: Yes Cleansing/Irrigation: [...] on filedocumented in this encounter Care Teams Second Operator Relationship Specialty Start Date End Date Juan José Kendall MD [address] [place] [address] [place] [address] PCP - General Family Medicine 12/25/22 Juan José Kendall MD [address] [place] [address] [place] [address] Referring Physician Family Medicine 12/25/22 documented as of this encounter
--- OUTSIDE RECORDS SUMMARY | 2025-02-22 09:12 | XMS_ITS | Encounter Summary ---
Author Organization [employer] ([place], [place], [place], [place], [place]) Address [address] [place] [address] Care Team Providers Care Punch Molder Name Role Phone Juan José Kendall MD Primary Care Provider +- [phone] Juan José Kendall MD Unavailable [phone] Encounter Details Date Type Department Care Team (Late st Contact Info) Description 09/11/2018 Transcribed Document [facility] [place] [address] [place] [address] ProviderLaurie MD [address] [place] [address] Social History Tobacco Use Types Packs/Day Years Used Date Smoking Tobacco: Never Assessed Comments Unknown Sex and Gender Information Value Date Recorded Sex Assigned at Not on file Legal Sex Female 2:23 PM CDT Gender Identity Not on file Sexual Orientation Not on file documented as of this encounter Miscellaneous Notes * Cerner Conversion Note - Laurie ProviderMD - 09/11/2018 3:00 AM CDT Pain [...] on filedocumented in this encounter Care Teams Punch Molder Relationship Specialty Start Date End Date Juan José Kendall MD [address] [facility] [address] [place] [address] PCP - General Family Medicine 12/25/22 Juan José Kendall MD [address] [facility] [address] [place] [address] Referring Physician Family Medicine 12/25/22 documented as of this encounter
--- OUTSIDE RECORDS SUMMARY | 2025-02-22 09:12 | XMS_ITS | Encounter Summary ---
Author Organization [employer] ([place], [place], [place], [place], [place]) Address [address] [place] [address] Care Team Providers Care Customer Acquisition Specialist Name Role Phone Juan José Kendall MD Primary Care Provider +- [phone] Juan José Kendall MD Unavailable [phone] Encounter Details Date Type Department Care Team (Late st Contact Info) Description 08/31/2018 Transcribed Document [facility] [place] Family Medicine [address] [place] [address] ProviderLaurie MD [address] [place], [place] [id number] Social History Tobacco Use Types Packs/Day Years Used Date Smoking Tobacco: Never Assessed Comments Unknown Sex and Gender Information Value Date Recorded Sex Assigned at Not on file Legal Sex Female 2:23 PM CDT Gender Identity Not on file Sexual Orientation Not on file documented as of this encounter Miscellaneous Notes * Cerner Conversion Note - Laurie ProviderMD - 08/31/2018 2:[address] Main OR IntraOp Summary Primary Physician: JONG SANTACRUZ MD-ORT Finalized Date/Time: 09/02/18 11:30:11 Pt. Name: ROSSY TRUDI KAY /Sex: 1955 Female Med Rec #: [id number] Physician: JONES HIDALGO MD-INT Financial #: [id number] Pt. Type: I Room/Bed: [facility]/ Admit/Disch: 08/30/18 14:25:00 - Institution: [facility] IntraOp Case Attendance Entry 1 Entry 2 Entry 3 Case Attendee JONG SANTACRUZ MD-Jong Lo MD MOSS, CHRISTY, LISBETH Role Performed Surgeon/Proceduralist, Anesthesiologist Wealth Management Consultant, First First Time In 08/31/18 14:03:00 08/31/18 [...] 6 Case Attendee ATIYA ROCA ST ARVIN, TIMOTEO Love, HILARIA OTHER, ATTENDEE #1 Role Performed Scrub, First Physician certified nursing assistant Vendor Time In 08/31/18 14:03:00 08/31/18 14:03:00 08/31/18 14:03:00 Time Out 08/31/18 17:14:00 08/31/18 17:14:00 08/31/18 16:43:00 Procedure Knee Total Joint Knee Total Joint Knee Total Joint Revision Revision Revision Other Attendee Superficial Wound Closed By: Last Modified By: Adrián Stone RN Holliday, Stewart R, RN Adrián Stone RN 08/31/18 17:14:37 08/31/18 17:14:37 08/31/18 16:43:14 Entry 7 Entry 8 Case Attendee Adrián Stone, [facility] MAYER WEALTH MANAGEMENT ADVISOR Role Performed Wealth Management Consultant, First WEALTH MANAGEMENT ADVISOR/Nurse Shine Worker Time In 08/31/18 15:02:00 08/31/18 15:37:00 Time Out 08/31/18 17:14:00 08/31/18 17:14:00 Procedure Knee Total Joint Knee Total Joint Revision Revision Other Attendee Superficial Wound Closed By: Last Modified By: Adrián Stone RN Holliday, Stewart R, RN 08/31/18 17:14:37 08/31/18 17:14:37 [facility] Intra[facility] Case Attendance Audit 08/31/18 17:14:37 Psychologist Industrial Organizational: HUIDSR Modifier: HOLLIDSR 1 <+> Time Out [...] Procedure Knee Total Joint Revision 08/31/18 16:43:14 Psychologist Industrial Organizational: HOLLIDSR Modifier: HOLLIDSR 6 <+> Time Out 6 <*> Procedure Knee Total Joint Revision 08/31/18 15:41:23 Psychologist Industrial Organizational: HOLLIDSR Modifier: HOLLIDSR 2 <+> Time Out 2 <*> Procedure Knee Total Joint Revision 08/31/18 15:37:42 Psychologist Industrial Organizational: CRMOSS Modifier: HOLLIDSR <+> 8 Case Attendee <+> 8 Role Performed <+> 8 Time In <+> 8 Procedure 08/31/18 15:03:11 Psychologist Industrial Organizational: CRMOSS Modifier: CRMOSS 1 <*> Procedure Knee [...] Time In <+> 7 Procedure 08/31/18 14:52:53 Psychologist Industrial Organizational: CRMOSS Modifier: CRMOSS 1 <*> Procedure Knee [...] Role Performed <+> 6 Procedure 08/31/18 14:52:04 Psychologist Industrial Organizational: CRMOSS Modifier: CRMOSS <+> 1 Procedure <+> [...] [facility] Intra[facility] Case Times Audit 08/31/18 17:14:36 Psychologist Industrial Organizational: CRMOSS Modifier: HOLLIDSR <+> 1 Out Room Time <+> 1 Stop Time <+> 1 Stop Time 08/31/18 14:49:27 Psychologist Industrial Organizational: CRMOSS Modifier: CRMOSS <+> 1 Start Time [...] RN 08/31/18 15:03:15 [facility] Intra[facility] General Case Test Fixture Designer 1 Case Information OR OR 02 [facility] Case Level 1 Room Verified Yes Wound Class I - Clean Specialty SN Orthopedic ASA Class 4 Diagnosis Preop Diagnosis LEFT PROSTHETIC KNEE INFECTION Postop Same As Preop No Postop Diagnosis REFER TO MD NOTES Last Modified By: TIMBO BURGESS RN 08/31/18 15:08:04 E IntraOp General Case Data Audit 08/31/18 15:08:57 Psychologist Industrial Organizational: CRMOSS Modifier: CRMOSS <+> 1 Postop Same As Preop <+> 1 Preop Diagnosis 08/31/18 15:08:04 Psychologist Industrial Organizational: CRMOSS Modifier: CRMOSS <+> 1 ASA Class <+> 1 Postop Diagnosis <+> 1 Room Verified [facility] Intra[facility] Implant Log Entry 1 Entry 2 Type Implant (Synthetic) Implant (Synthetic) Implant Log Implant Type Bone Cement Bone Cement Tissue Implant Type Implant CEMENT BONE COBALT G-HV CEMENT BONE COBALT G-HV Identification [id number] Description Implant Quantity 2 1 Implant Site left knee left knee Implant Identification Model Number Implant Identification Serial Number Implant [id number] Identification Lot Number Implant Dj Surg:Encore Dj Surg:Encore Identification Med:Encore Orth Med:Encore Orth Box Lining Machine Feeder Name: Implant 600-15-100 600-15-100 Identification Catalog Number Implant Size Implant Has an Yes Yes Expiration Date Implant Expiration 08/19/19 08/19/19 Date Wasted Radioactive Material Time Implanted Tissue Implant Continue for Tissue Implant Documentation Tissue Identification Number Graft Prep Per Box Lining Machine Feeder Instructions: Tissue Preparation Method: Reconstitution Solution: Reconstitution Solution Lot Number Reconstitution Solution Expiration Date: Thawing Solution Thawing Solution Lot Number Thawing Solution Expiration Date Preparation Materials, Other Preparation Materials, Other Lot Number Preparation Materials, Other Expiration Date Tissue Prepared/Processed By Box Lining Machine Feeder Paperwork Completed Implant Type Comment Last Modified By: Adrián Stone RN Holliday, Stewart R, RN 08/31/18 16:13:18 08/31/18 16:13:19 E IntraOp Implant Log Audit 08/31/18 16:13:19 Psychologist Industrial Organizational: ARTEMIO Modifier: ARTEMIO <+> 1 Implant Identification Lot Number <+> 1 Implant Identification Box Lining Machine Feeder Name: <+> 1 Implant Expiration Date <+> 1 Implant Site <+> 1 Implant Identification Catalog Number <+> 1 Implant Has an Expiration Date <+> 2 Implant Identification Description <+> 2 Implant Identification Lot Number <+> 2 Implant Identification Box Lining Machine Feeder Name: <+> 2 Implant Expiration Date <+> [...] vancomycin 1Gm vial - powder vial - [id number] Combo Med List Time Administered Route of IRRIGATION Administration Dose Dose 1000 1 Unit of Measure ml gram Volume 1000ML Administered By JONG SANTACRUZ MD-ORT BALTHROP, JOHN E, MD-ORT Procedure Irrigation Irrigant Volume In Irrigant Volume Out Last Modified By: TIMBO BURGESS RN Holliday, Stewart R, RN 08/31/18 15:08:19 08/31/18 16:33:41 [facility] Intra[facility] Medication Admin Audit 08/31/18 16:33:41 Psychologist Industrial Organizational: CRMOSS Modifier: HUIDSR <+> 2 Medication/Irrigant <+> 2 Administered By [...] TO OPERATIVE THIGH Positioned By JONG SANTACRUZ MD-ORT, TIMOTEO ECHEVARRIA PA-C, TIMBO BURGESS RN Position Verified Positioning [...] Yes Elements Complete? RN Sign Out Adrián Stone, RN Signature RN Sign Out 08/31/18 17:14:00 [...] Intra Op Sign Out Audit 08/31/18 17:14:46 Psychologist Industrial Organizational: ARTEMIO Modifier: ARTEMIO 1 <*> RN Sign [...] [facility] Intra[facility] Surgical Procedures Audit 08/31/18 17:14:39 Psychologist Industrial Organizational: JORDANOSS Modifier: DARYNR <+> 1 Stop [facility] IntraOp Temp Regulation [...] 14:52:21 [facility] Intra[facility] Tourniquet Audit 08/31/18 14:52:21 Psychologist Industrial Organizational: CRMOSS Modifier: CRMOSS <+> 1 Total Time calculated manually (Mins) <+> 1 Stop Time Case Comments <None> Finalized By: Adrián Stone, RN Document Signatures Signed By: Adrián Stone RN 08/31/18 17:14 Vivien Lopez RN 09/01/18 13:31 Adrián Stone RN 09/02/18 11:30 Unfinalized History Date/Time Username Reason for Unfinalizing Freetext Reason for Unfinalizing 09/01/18 13:27 CLOTILDER Modify Pick List 09/02/18 11:29 DARYNR Correct Billing Electronically signed by [facility] Conversion Ticker Maintainer Cerner at 07/24/2022 3:41 PM CDT documented in this encounter Plan of Treatment Not on file documented as of this encounter Visit Diagnoses Not on filedocumented in this encounter Care Teams Customer Acquisition Specialist Relationship Specialty Start Date End Date Juan José Kendall MD [address] [facility] [address] [place] [address] PCP - General Family Medicine 12/25/22 Juan José Kendall MD [address] [facility] [address] [place] [address] Referring Physician Family Medicine 12/25/22 documented as of this encounter
--- OUTSIDE RECORDS SUMMARY | 2025-02-22 09:12 | XMS_ITS | Encounter Summary ---
Author Organization [employer] ([place], [place], [place], [place], [place]) Address [address] [place] [address] Care Team Providers Care Electrical Engineering Teacher Name Role Phone Juan José Kendall MD Primary Care Provider +- [phone] Juan José Kendall MD Unavailable [phone] Encounter Details Date Type Department Care Team (Late st Contact Info) Description 08/31/2018 Transcribed Document [facility] [place] [facility] [place] [address] ProviderLaurie MD [address] [place] [address] Social History Tobacco Use Types Packs/Day Years Used Date Smoking Tobacco: Never Assessed Comments Unknown Sex and Gender Information Value Date Recorded Sex Assigned at Not on file Legal Sex Female 2:23 PM CDT Gender Identity Not on file Sexual Orientation Not on file documented as of this encounter Miscellaneous Notes * Cerner Conversion Note - aLurie Garcia MD - 08/31/2018 10:56 AM CDT Patient: TRUDI [...] repair. She was more recently admitted to [facility] x[facility] earlier this month on 08/16 [...] care. [place] [facility]. [...] HTN Cancer Social History: . lives in [place]. No tobacco, ETOH, or illicit drug use. Social & Psychosocial Habits Alcohol 06/23/2018 Alcohol Use History, Social Habits No Substance Abuse 06/23/2018 Recreational Drug Use History No Tobacco 06/23/2018 Smoking Status Never (less than 100 in l Smokeless Tobacco Status Never Medications by Classification Antimicrobials ertapenem - 1 Gram, IV Piggyback, [id number], infuse over 30 Minute(s), Routine DAPTOmycin + Sodium Chloride 0.9% intravenous solution 50 mL - 700 mg, IV Piggyback, [id number], infuse over 30 Minute(s) Cardiovascular metoprolol (Lopressor) [...] 78 (AUGUST 30 14:37) SpO2 97 (AUGUST 31 09:30) 96 (AUGUST 31 04:00) 99 (AUGUST 30 [...] Encounter/Past 24 Hours) Creatinine Level 2.31 mg/dL HI 08/31/2018 06:18 Bun/Creatinine 13.9 08/31/2018 06:18 Estimated [...] in lab Radiology Results (Last 48 hours) [id number] -- 08/30/2018 14:25 CR Chest 1 Vw [...] and septicemia- vanc sensitive enterococus grew from / blood culture and from 5/8 urine culture. [...] micro lab today Electronically signed by Aleks [facility] Conversion Powerhouse Helper Cerner at 07/24/2022 3:42 PM CDT documented in this encounter Plan of Treatment Not on file documented as of this encounter Visit Diagnoses Not on filedocumented in this encounter Care Teams Electrical Engineering Teacher Relationship Specialty Start Date End Date Juan José Kendall MD [address] [facility] [address] [place] [address] PCP - General Family Medicine 12/25/22 Juan José Kendall MD [address] [facility] [address] [place] [address] Referring Physician Family Medicine 12/25/22 documented as of this encounter
--- OUTSIDE RECORDS SUMMARY | 2025-02-22 09:12 | XMS_ITS | Encounter Summary ---
Author Organization [employer] ([place], [place], [place], [place], [place]) Address [address] [place] [address] Care Team Providers Care Senior Wind Energy Consultant Name Role Phone Juan José Kendall MD Primary Care Provider +- [phone] Juan José Kendall MD Unavailable [phone] Encounter Details Date Type Department Care Team (Late st Contact Info) Description 09/22/2018 Transcribed Document [facility] [place] Family Medicine [address] [place] [address] ProviderLaurie MD [address] [place] [address] Social History Tobacco Use Types Packs/Day Years Used Date Smoking Tobacco: Never Assessed Comments Unknown Sex and Gender Information Value Date Recorded Sex Assigned at Not on file Legal Sex Female 2:23 PM CDT Gender Identity Not on file Sexual Orientation Not on file documented as of this encounter Miscellaneous Notes * Cerner Conversion Note - Historical ProviderMD - 09/22/2018 2:00 AM CDT Locksmith Apprentice Details Entered On: 09/22/2018 2:33 EDT Performed [...] Mercedes Krishnan RN - 09/22/2018 2:33 EDT Electronically signed by Aleks [facility] Conversion Hat Stock Laminating Machine Operator Cerner at 07/24/2022 3:48 PM CDT documented in this encounter Plan of Treatment Not on file documented as of this encounter Visit Diagnoses Not on filedocumented in this encounter Care Teams Senior Wind Energy Consultant Relationship Specialty Start Date End Date Juan José Kendall MD [address] [facility] [address] [place] [address] PCP - General Family Medicine 12/25/22 Juan José Kendall MD [address] [facility] [address] [place] [address] Referring Physician Family Medicine 12/25/22 documented as of this encounter
--- OUTSIDE RECORDS SUMMARY | 2025-02-22 09:12 | XMS_ITS | Encounter Summary ---
Author Organization [employer] ([place], [place], [place], [place], [place]) Address [address] [place] [address] Care Team Providers Care Shop Hand Name Role Phone Juan José Kendall MD Primary Care Provider +- [phone] Juan José Kendall MD Unavailable [phone] Encounter Details Date Type Department Care Team (Late st Contact Info) Description 09/11/2018 Transcribed Document [facility] [place] Family Medicine [address] [place] [address] ProviderLaurie MD [address] [place] [address] Social History Tobacco Use Types Packs/Day Years Used Date Smoking Tobacco: Never Assessed Comments Unknown Sex and Gender Information Value Date Recorded Sex Assigned at Not on file Legal Sex Female 2:23 PM CDT Gender Identity Not on file Sexual Orientation Not on file documented as of this encounter Miscellaneous Notes * Cerner Conversion Note - Laurie ProviderMD - 09/11/2018 2:00 AM CDT Outside Plant Cable Engineer Details Entered On: 09/11/2018 0:07 EDT Performed [...] KOKO BAILEY RN - 09/11/2018 0:07 EDT Electronically signed by Blayne Fink Conversion Supervisor Cytogenetic Laboratory Cerner at 07/24/2022 3:48 PM CDT documented in this encounter Plan of Treatment Not on file documented as of this encounter Visit Diagnoses Not on filedocumented in this encounter Care Teams Shop Hand Relationship Specialty Start Date End Date Juan José Kendall MD [address] [facility] [address] [place] [address] PCP - General Family Medicine 12/25/22 Juan José Kendall MD [address] [facility] [address] [place] [address] Referring Physician Family Medicine 12/25/22 documented as of this encounter
--- OUTSIDE RECORDS SUMMARY | 2025-02-22 09:13 | XMS_ITS | Encounter Summary ---
Author Organization [employer] ([place], [place], [place], [place], [place]) Address [address] [place] [address] Care Team Providers Care Jewelry Mold Maker Name Role Phone Juan José Kendall MD Primary Care Provider +- [phone] Juan José Kendall MD Unavailable [phone] Encounter Details Date Type Department Care Team (Late st Contact Info) Description 09/23/2018 Transcribed Document [facility] [place] Family Medicine [facility] [place] [address] ProviderLaurie MD [address] [place] [address] Social History Tobacco Use Types Packs/Day Years Used Date Smoking Tobacco: Never Assessed Comments Unknown Sex and Gender Information Value Date Recorded Sex Assigned at Not on file Legal Sex Female 2:23 PM CDT Gender Identity Not on file Sexual Orientation Not on file documented as of this encounter Miscellaneous Notes * Cerner Conversion Note - Laurie Garcia MD - 09/23/2018 11:10 AM CDT Patient: TRUDI [...] repair. She was more recently admitted to [facility] x2 earlier this month on 08/16 [...] getting wound care. She was transferred to [facility] today for a higher level of care. [...] HTN Cancer Social History: . lives in [place]. No tobacco, ETOH, or illicit drug use. [...] 14) L 7 (EDGARD 10) L 8 (EDGARD 07) ALK P 119 (EDGARD 17) 127 (EDGARD 14) 95 (EDGARD 10) 77 (EDGARD 07) T Bili 0.6 (SEP 17) 0.7 (EDGARD 14) 0.5 (EDGARD 10) 0.8 (SEP 07) PTN L 5.0 (SEP 17) L 5.0 (EDGARD 14) L 4.8 (EDGARD 10) L 5.4 (EDGARD 07) ALB L 2.2 (EDGARD 17) L 2.3 (EDGARD 14) L 2.6 (EDGARD 10) L 3.3 (EDGARD [...] discussed with her today Electronically signed by [facility] Conversion Signalman Cerner at 07/24/2022 3:39 PM CDT documented in this encounter Plan of Treatment Not on file documented as of this encounter Visit Diagnoses Not on filedocumented in this encounter Care Teams Jewelry Mold Maker Relationship Specialty Start Date End Date Juan José Kendall MD [address] [facility] [address] [place] [address] PCP - General Family Medicine 12/25/22 Juan José Kendall MD [address] [facility] [address] [place] [address] Referring Physician Family Medicine 12/25/22 documented as of this encounter
--- OUTSIDE RECORDS SUMMARY | 2025-02-22 09:13 | XMS_ITS | Encounter Summary ---
Author Organization [employer] ([place], [place], [place], [place], [place]) Address [address] [place] [address] Care Team Providers Care Camp Advisor Name Role Phone Juan José Kendall MD Primary Care Provider + [phone] Juan José Kendall MD Unavailable [phone] Encounter Details Date Type Department Care Team (Late st Contact Info) Description 10/04/2018 Transcribed Document [facility] [place] [address] [place] [address] ProviderLaurie MD [address] [place] [address] Social History Tobacco Use Types Packs/Day Years [...] Performed On: 10/04/2018 21:00 EDT by Anna Lowe Rn Patch Check Patch Check - Type of Patch : scopolamine (Transderm-Scop) Patch Check - Location : Left Ear Anan Lowe Rn - 10/05/2018 0:05 EDT Patch Check Result : Yes Anna Lowe Rn - 10/05/2018 0:00 EDT Electronically signed by Aleks [facility] Conversion Paint Trimmer Pipe Bowls Cerner at 07/24/2022 3:42 PM CDT documented in this encounter Plan of Treatment Not on file documented as of this encounter Visit Diagnoses Not on filedocumented in this encounter Care Teams Camp Advisor Relationship Specialty Start Date End Date Juan José Kendall MD [address] [facility] [address] [place] [id number] PCP - General Family Medicine 12/25/22 Juan José Kendall MD [address] [facility] [address] [place] [phone] Referring Physician Family Medicine 12/25/22 documented as of this encounter
--- OUTSIDE RECORDS SUMMARY | 2025-02-22 09:13 | XMS_ITS | Encounter Summary ---
Author Organization [employer] ([place], [place], [place], [place], [place]) Address [address] [place] [address] Care Team Providers Care Redrawer Name Role Phone Juan José Kendall MD Primary Care Provider + [phone] Juan José Kendall MD Unavailable [phone] Encounter Details Date Type Department Care Team (Late st Contact Info) Description 08/31/2018 Transcribed Document [facility] [place] [facility] [place] [address] Laurie Garcia MD [address] [place] [address] Social History Tobacco Use Types Packs/Day Years [...] 0.9% 50 mL 2 Gram, IV Piggyback, [id number] cloNIDine 80 mcg + ketorolac 30 mg + ropivacaine 0.5% 30 mL + lidocaine 1% w/epi 1:100,000 28.2 mL 80 mcg 0.8 mL, IntraLesional, 1-Time DAPTOmycin + NaCl 0.9% 50 mL 700 mg 14 mL, IV Piggyback, E81NMor docusate sodium 100 mg cap 100 mg [...] Urine Random 60 mg/dL NA Protein Ur [place] 209 mg/dL NA Sodium Ur [place] 48 mMole/Liter NA Urea Nitrogen Urine Random [...] 19.8 % Lymph # 1.05 K/uL LOW Hyde % 7.8 % Hyde # 0.41 K/uL Eos % 10.4 % [...] on filedocumented in this encounter Care Teams Redrawer Relationship Specialty Start Date End Date Juan José Kendall MD [address] [facility] [address] [place] [id number] PCP - General Family Medicine 12/25/22 Juan José Kendall MD [address] [facility] [address] [place] [phone] Referring Physician Family Medicine 12/25/22 documented as of this encounter
--- OUTSIDE RECORDS SUMMARY | 2025-02-22 09:13 | XMS_ITS | Encounter Summary ---
Author Organization [employer] ([place], [place], [place], [place], [place]) Address [address] [place] [address] Care Team Providers Care Palm Gatherer Name Role Phone Juan José Kendall MD Primary Care Provider + [phone] Juan José Kendall MD Unavailable [phone] Encounter Details Date Type Department Care Team (Late st Contact Info) Description 09/11/2018 Transcribed Document [facility] [place] [facility] [address] Laurie Garcia MD [address] [place] [address] Social History Tobacco Use Types Packs/Day Years [...] mL 700 mg 14 mL, IV Piggyback, [id number] heparin 5,000 units/1 mL inj 5,000 Units 1 mL, SubCutaneous, Q8HInt metoclopramide 10 mg tab 10 mg 1 Tab, Oral, BID metoprolol tartrate 25 mg tab 25 mg 1 Tab, Oral, Daily ondansetron 4 mg/2 mL inj 4 mg 2 mL, IV Push, K19PMey pantoprazole EC 40 mg tab 40 mg [...] on filedocumented in this encounter Care Teams Palm Gatherer Relationship Specialty Start Date End Date Juan José Kendall MD [address] [facility] [address] [place] [address] PCP - General Family Medicine 12/25/22 Juan José Kendall MD [address] [facility] [address] [place] [phone] Referring Physician Family Medicine 12/25/22 documented as of this encounter
--- OUTSIDE RECORDS SUMMARY | 2025-02-22 09:13 | XMS_ITS | Encounter Summary ---
Author Organization [employer] ([place], [place], [place], [place], [place]) Address [address] [place] [address] Care Team Providers Care Resident Associate Name Role Phone Juan José Kendall MD Primary Care Provider +- [phone] Juan José Kendall MD Unavailable [phone] Encounter Details Date Type Department Care Team (Late st Contact Info) Description 08/31/2018 Transcribed Document [facility] [place] Family Medicine [address] [place] [address] ProviderLaurie MD [address] [place] [address] Social History Tobacco Use Types Packs/Day Years Used Date Smoking Tobacco: Never Assessed Comments Unknown Sex and Gender Information Value Date Recorded Sex Assigned at Not on file Legal Sex Female 2:23 PM CDT Gender Identity Not on file Sexual Orientation Not on file documented as of this encounter Miscellaneous Notes * Cerner Conversion Note - Laurie ProviderMD - 08/31/2018 6:28 PM CDT Evaluation, [...] : One story Stairs : VALENTINA Castellanos OTR/Ivan - 09/01/2018 10:12 EDT Prior LOF Bathing, [...] (Comment: mod x 2. [VALENTINA RETANA OTR/Ivan Orozco 09/01/2018 11:01 EDT] ) VALENTINA RETANA OTR/Ivan [...] 0-100% Score : 46.65 % VALENTINA RETANA OTR/Ivan 09/01/2018 11:01 EDT Image 3 - Images currently included in the form version of this document have not been included in the text rendition version of the form. Activity Tolerance, OT Activity Comment : VALENTINA HULL OTR/Ivan Orozco 09/01/2018 11:01 EDT Cognition Assessment, OT Orientation : Oriented x 4 VALENTINA RETANA OTR/Ivan Orozco 09/01/2018 11:01 EDT Education OT Occupational Therapy Education Grid Activity of Daily Living Training : Verbalizes understanding, Returns demonstration, Needs further teaching Functional Mobility Training : Verbalizes understanding, Returns demonstration, Needs further teaching Role of Occupational Therapy : Verbalizes understanding VALENTINA RETANA OTR/Ivan Orozco 09/01/2018 11:01 EDT Indication Assessment, OT Occupational Therapy Indicated : Yes Problem List, OT : Impaired, bed mobility, Impaired, activities daily living, Impaired functional mobility, Impaired, standing balance, Impaired, strength, Impaired, transfers Potential Barriers, OT : None evident Rehabilitation Potential, OT : VALENTINA Mcgregor OTR/Ivan Orozco 09/01/2018 11:01 EDT Plan of Care, OT OT Tx Plan/Goals Established w Patient : Yes OT Frequency Rehab : Other: 3-5 x week OT Duration Rehab : Seven Days OT Treatments Planned : Activities of daily living, Functional mobility training, Safety education, Therapeutic activities, Therapeutic exercises Plan of Care Comment, OT : see OT POC. VALENTINA RETANA OTR/Ivan - 09/01/2018 11:01 EDT Halfway Goals, OT Other LTG Grid Goal #1 [...] skilled OT 3-5 x week. VALENTINA RETANA OTR/L - 09/01/2018 11:01 EDT Pain Assessment Pain [...] VALENTINA RETANA OTR/L - 09/01/2018 11:01 EDT documented in this encounter Plan of Treatment Not on file documented as of this encounter Visit Diagnoses Not on filedocumented in this encounter Care Teams Resident Associate Relationship Specialty Start Date End Date Juan José Kendall MD [address] [facility] [address] [place] [id number] PCP - General Family Medicine 12/25/22 Juan José Kendall MD 1210 [facility] [address] [place] [phone] Referring Physician Family Medicine 12/25/22 documented as of this encounter
--- OUTSIDE RECORDS SUMMARY | 2025-02-22 09:13 | XMS_ITS | Encounter Summary ---
Author Organization [employer] ([place], [place], [place], [place], [place]) Address [address] [place] [address] Care Team Providers Care Thermal Cutting Machine Operator Name Role Phone Juan José Kendall MD Primary Care Provider +- [phone] Juan José Kendall MD Unavailable [phone] Encounter Details Date Type Department Care Team (Late st Contact Info) Description 09/10/2018 Transcribed Document [facility] [place] [address] [place] [address] ProviderLaurie MD [address] [place] [address] Social History Tobacco Use Types Packs/Day Years Used Date Smoking Tobacco: Never Assessed Comments Unknown Sex and Gender Information Value Date Recorded Sex Assigned at Not on file Legal Sex Female 2:23 PM CDT Gender Identity Not on file Sexual Orientation Not on file documented as of this encounter Miscellaneous Notes * Cerner Conversion Note - Laurie ProviderMD - 09/10/2018 3:00 AM CDT Pain [...] on filedocumented in this encounter Care Teams Thermal Cutting Machine Operator Relationship Specialty Start Date [...]
--- OUTSIDE RECORDS SUMMARY | 2025-02-22 09:13 | XMS_ITS | Encounter Summary ---
Author Organization [employer] ([place], [place], [place], [place], [place]) Address [address] [place] [address] Care Team Providers Care Auto Leasing Manager Name Role Phone Juan José Kendall MD Primary Care Provider + [phone] Juan José Kendall MD Unavailable [phone] Encounter Details Date Type Department Care Team (Late st Contact Info) Description 09/22/2018 Transcribed Document [facility] [place] [facility] [place] [address] Laurie Garcia MD [address] [place] [address] Social History Tobacco Use Types Packs/Day Years [...] inj 4 mg 2 mL, IV Push, [id number] pantoprazole EC 40 mg tab 40 mg [...] on filedocumented in this encounter Care Teams Auto Leasing Manager Relationship Specialty Start Date End Date Juan José Kendall MD [address] [place] [facility] [address] [place] [address] PCP - General Family Medicine 12/25/22 Juan José Kendall MD 12[address] [facility] [address] [place] [phone] Referring Physician Family Medicine 12/25/22 documented as of this encounter
--- OUTSIDE RECORDS SUMMARY | 2025-02-22 09:13 | XMS_ITS | Encounter Summary ---
Author Organization [email or web address] ([place], [place], [place], [place], [place]) Address [address] [place] [address] Care Team Providers Care Digital Computer Operator Name Role Phone Juan José Kendall MD Primary Care Provider +- [phone] Juan José Kendall MD Unavailable [phone] Encounter Details Date Type Department Care Team (Late st Contact Info) Description 08/31/2018 Transcribed Document [facility] [place] Family Medicine [address] [place] [address] ProviderLaurie MD [address] [place], [place] [address] Social History Tobacco Use Types Packs/Day Years [...] 08/31/2018 2:47 PM CDT [facility] Main OR PACU Summary Primary Physician: JONG SANTACRUZ MD-ORT Finalized Date/Time: 08/31/18 18:47:31 Pt. Name: ROSSY TRUDI KAY /Sex: 1955 Female Med Rec #: [id number] Physician: JONES HIDALGO MD-INT Financial #: [id number] Pt. Type: I Room/Bed: [facility]/ Admit/Disch: 08/30/18 14:25:00 - Institution: [facility] Main OR PACU Case Times Entry 1 In PACU I 08/31/18 17:17:00 Ready for PACU 08/31/18 18:37:00 Discharge Discharge from PACU 08/31/18 18:37:00 I Last Modified By: Isabel Van, NDV-[id number]-OP CAR 08/31/18 18:47:08 Finalized By: Isabel Van LUN-DN-JMCR-OP CAR Document Signatures Signed By: Isabel Van DER-ZL-YIQM-OP CAR 08/31/18 18:47 Electronically signed by Aleks [facility] Conversion Qc Lab Technician Cerner at 07/24/2022 3:51 PM CDT documented in this encounter Plan of Treatment Not on file documented as of this encounter Visit Diagnoses Not on filedocumented in this encounter Care Teams Digital Computer Operator Relationship Specialty Start Date End Date Juan José Kendall MD [address] [facility] [address] [place] [id number] PCP - General Family Medicine 12/25/22 Juan José Kendall MD [address] [facility] [address] [place] [phone] Referring Physician Family Medicine 12/25/22 documented as of this encounter
--- OUTSIDE RECORDS SUMMARY | 2025-02-22 09:13 | XMS_ITS | Encounter Summary ---
Author Organization [employer] ([place], [place], [place], [place], [place]) Address [address] [place] [address] Care Team Providers Care Commercial Lines Sales Executive Name Role Phone Juan José Kendall MD Primary Care Provider + [phone] Juan José Kendall MD Unavailable [phone] Encounter Details Date Type Department Care Team (Late st Contact Info) Description 09/11/2018 Transcribed Document [facility] [place] Family Medicine [address] [place] [address] ProviderLaurie MD [address] [place] [address] Social History Tobacco Use Types Packs/Day Years [...] ORLY RICHARDS, RN - 09/11/2018 19:12 EDT documented in this encounter Plan of Treatment Not on file documented as of this encounter Visit Diagnoses Not on filedocumented in this encounter Care Teams Commercial Lines Sales Executive Relationship Specialty Start Date End Date Juan José Kendall MD [address] [place] [address] PCP - General Family Medicine 12/25/22 Juan José Kendall MD [address] [place] [address] [place] [phone] Referring Physician Family Medicine 12/25/22 documented as of this encounter
--- OUTSIDE RECORDS SUMMARY | 2025-02-22 09:14 | XMS_ITS | Encounter Summary ---
Author Organization [employer] ([place], [place], [place], [place], [place]) Address [address] [place] [address] Care Team Providers Care Gameroom Technician Name Role Phone Juan José Kendall MD Primary Care Provider +- [phone] Juan José Kendall MD Unavailable [phone] Encounter Details Date Type Department Care Team (Late st Contact Info) Description 08/31/2018 Transcribed Document [facility] [place] [address] [place] [address] ProviderLaurie MD [address] [place] [address] Social History Tobacco Use Types Packs/Day Years [...] needed Prior LOF Transfer : Assist needed Wilfrido Hedrick Physical Therapist - 09/01/2018 11:30 EDT Prior LOF Assist with ADL Comment : was assisting pt to transfer to chair using sliding board at home most recently before being admitted to hospital. Wilfrido Hedrick Physical Therapist - 09/01/2018 11:30 EDT Upper [...] LLE Response to Pain : Intact Wilfrido Hedrick, Physical Therapist - 09/01/2018 11:30 EDT Cognition [...] Hedrick Physical Therapist - 09/01/2018 11:30 EDT Lidding Machine Operator Goals Other PT LTG Grid Goal #1 [...] Recommend Continued Therapy at Discharge : Yes Wilfrido Hedrick Physical Therapist - 09/01/2018 11:30 EDT [place] PT Charges PT Ther Activities Ea 15 Min : 2 PT Eval Moderate Complexity : 1 Wlifrido Hedrick Physical Therapist - 09/01/2018 11:30 EDT Electronically signed by Aleks [facility] Conversion Prehemmer Cerner at 07/24/2022 3:36 PM CDT documented in this encounter Plan of Treatment Not on file documented as of this encounter Visit Diagnoses Not on filedocumented in this encounter Care Teams Gameroom Technician Relationship Specialty Start Date End Date Juan José Kendall MD [address] [facility] [address] [place] [address] PCP - General Family Medicine 12/25/22 Juan José Kendall MD [address] [facility] [address] [place] [address] Referring Physician Family Medicine 12/25/22 documented as of this encounter
--- OUTSIDE RECORDS SUMMARY | 2025-02-22 09:14 | XMS_ITS | Encounter Summary ---
Author Organization [employer] ([place], [place], [place], [place], [place]) Address [address] [place] [address] Care Team Providers Care Unix Developer Name Role Phone Juan José Kendall MD Primary Care Provider +- [phone] Juan José Kendall MD Unavailable [phone] Encounter Details Date Type Department Care Team (Late st Contact Info) Description 10/04/2018 Transcribed Document [facility] [place] Family Medicine [address] [place] [address] ProviderLaurie MD [address] [place] [address] Social History Tobacco Use Types Packs/Day Years [...] on filedocumented in this encounter Care Teams Unix Developer Relationship Specialty Start Date End Date Juan José Kendall MD [address] [place] [address] [address] [place] [phone] PCP - General Family Medicine 12/25/22 Juan José Kendall MD [address] [place] [address] [address] [place] [phone] Referring Physician Family Medicine 12/25/22 documented as of this encounter
--- OUTSIDE RECORDS SUMMARY | 2025-02-22 09:14 | XMS_ITS | Encounter Summary ---
Author Organization [employer] ([place], [place], [place], [place], [place]) Address [address] [place] [address] Care Team Providers Care River Captain Name Role Phone Juan José Kendlal MD Primary Care Provider +- [phone] Juan José Kendall MD Unavailable [phone] Encounter Details Date Type Department Care Team (Late st Contact Info) Description 09/10/2018 Transcribed Document [facility] [place] Family Medicine [address] [place] [address] ProviderLaurie MD [address] [place] [address] Social History Tobacco Use Types Packs/Day Years [...] Performed On: 09/10/2018 11:25 EDT by ORLY RICHARDS RN Intervention Information: acetaminophen Performed by ORLY RICHARDS RN on 09/10/2018 10:25:00 EDT acetaminophen,500mg Oral [...] on filedocumented in this encounter Care Teams River Captain Relationship Specialty Start Date End Date [...]
--- OUTSIDE RECORDS SUMMARY | 2025-02-22 09:14 | XMS_ITS | Encounter Summary ---
Author Organization [employer] ([place], [place], [place], [place], [place]) Address [address] [place] [address] Care Team Providers Care Military Cook Name Role Phone Juan José Kendall MD Primary Care Provider +- [phone] Juan José Kendall MD Unavailable [phone] Encounter Details Date Type Department Care Team (Late st Contact Info) Description 10/04/2018 Transcribed Document [facility] [place] Family Medicine [address] [place] [address] ProviderLaurie MD [address] [place] [address] Social History Tobacco Use Types Packs/Day Years [...] Performed On: 10/04/2018 22:42 EDT by Anna Lowe Rn Intervention Information: [...] on filedocumented in this encounter Care Teams Military Cook Relationship Specialty Start [place] [address] [place] [address] [address] [place] [phone] PCP - General Family Medicine 12/25/22 Juan José Kendall MD [address] [place] [address] [address] [place] [phone] Referring Physician Family Medicine 12/25/22 documented as of this encounter
--- OUTSIDE RECORDS SUMMARY | 2025-02-22 09:14 | XMS_ITS | Encounter Summary ---
Author Organization [employer] ([place], [place], [place], [place], [place]) Address [address] [place] [address] Care Team Providers Care Calf Skinner Name Role Phone Juan José Kendall MD Primary Care Provider +- [phone] Juan José Kendall MD Unavailable [phone] Encounter Details Date Type Department Care Team (Late st Contact Info) Description 10/04/[address] [facility] [place] Family Medicine [address] [place] [address] ProviderLaurie MD [address] [place] [address] Social History Tobacco Use Types Packs/Day Years Used Date Smoking Tobacco: Never Assessed Comments Unknown Sex and Gender Information Value Date Recorded Sex Assigned at Not on file Legal Sex Female 2:23 PM CDT Gender Identity Not on file Sexual Orientation Not on file documented as of this encounter Miscellaneous Notes * Cerner Conversion Note - Laurie ProviderMD - 10/04/2018 2:00 AM CDT Box Builder Details Entered On: 10/04/2018 0:35 EDT Performed [...] FRANCISCO MOREJON RN - 10/04/2018 0:35 EDT Electronically signed by Aleks [facility] Conversion Surgery Assistant Cerner at 07/24/2022 3:49 PM CDT documented in this encounter Plan of Treatment Not on file documented as of this encounter Visit Diagnoses Not on filedocumented in this encounter Care Teams Calf Skinner Relationship Specialty Start Date End Date Juan José Kednall MD [address] [facility] [address] [place] [phone] PCP - General Family Medicine 12/25/22 Juan José Kendall MD [address] [facility] [address] [place] [phone] Referring Physician Family Medicine 12/25/22 documented as of this encounter
--- OUTSIDE RECORDS SUMMARY | 2025-02-22 09:14 | XMS_ITS | Encounter Summary ---
Author Organization [employer] ([place], [place], [place], [place], [place]) Address [address] [place] [address] Care Team Providers Care Gambreler Helper Name Role Phone Juan José Kendall MD Primary Care Provider + [phone] Juan José Kendall MD Unavailable [phone] Encounter Details Date Type Department Care Team (Late st Contact Info) Description 09/10/2018 Transcribed Document [facility] [place] Family Medicine [address] [place] [address] ProviderLaurie MD [address] [place] [address] Social History Tobacco Use Types Packs/Day Years [...] on filedocumented in this encounter Care Teams Gambreler Helper Relationship Specialty Start Date End Date Juan José Kendall MD [address] [place] [phone] PCP - General Family Medicine 12/25/22 Juan José Kendall MD [address] [place] [address] [place] [phone] Referring Physician Family Medicine 12/25/22 documented as of this encounter
--- OUTSIDE RECORDS SUMMARY | 2025-02-22 09:14 | XMS_ITS | Encounter Summary ---
Author Organization [employer] ([place], [place], [place], [place], [place]) Address [address] [place] [address] Care Team Providers Care Distribution Sales Representative Name Role Phone Juan José Kendall MD Primary Care Provider + [phone] Juan José Kendall MD Unavailable [phone] Encounter Details Date Type Department Care Team (Late st Contact Info) Description 09/22/2018 Transcribed Document [facility] [address] [place] [address] ProviderLaurie MD [address] [place], [place] [id number] Social History Tobacco Use Types Packs/Day Years [...] Performed On: 09/22/2018 17:00 EDT by FRANTZ BROWN, RN Chart Check Powerplans Initiated/Discontinued as Appropriate : Yes All Active Orders Reviewed : Yes FRANTZ BROWN, RN - 09/22/2018 15:40 EDT documented in this encounter Plan of Treatment Not on file documented as of this encounter Visit Diagnoses Not on filedocumented in this encounter Care Teams Distribution Sales Representative Relationship Specialty Start Date End Date Juan José Kendall MD [address] [place] [address] PCP - General Family Medicine 12/25/22 Juan José Kendall MD [address] [place] [address] Referring Physician Family Medicine 12/25/22 documented as of this encounter
--- OUTSIDE RECORDS SUMMARY | 2025-02-22 09:14 | XMS_ITS | Encounter Summary ---
Author Organization [employer] ([place], [place], [place], [place], [place]) Address [address] [place] [address] Care Team Providers Care Political Analyst Name Role Phone Juan José Kendall MD Primary Care Provider +- [phone] Juan José Kendall MD Unavailable [phone] Encounter Details Date Type Department Care Team (Late st Contact Info) Description 08/31/2018 Transcribed Document [facility] [place] [address] [place] [address] Laurie Garcia MD [address] [place] [address] Social History Tobacco Use Types Packs/Day Years [...] Garcia MD - 08/31/2018 6:28 PM CDT Pain Assessment Entered On: 09/04/2018 5:03 EDT Performed On: 09/04/2018 3:38 EDT by Dayday Crump RN Intervention Information: HYDROmorphone Performed by Dayday Crump RN on 09/04/2018 03:08:00 EDT HYDROmorphone,0.5mg IV Push,Groshong proximal,Pain (Severe 7-10) Pain Assessment Pain Assessment : Follow-up assessment Pain Scale Goal : 3 Pain Intervention, Drug : Medicated Pain Improved by Intervention : Yes Dayday Crump RN - 09/04/2018 5:03 EDT Electronically signed by Aleks, [facility] Conversion Select [employer] at 07/24/2022 3:57 PM CDT documented in this encounter Plan of Treatment Not on file documented as of this encounter Visit Diagnoses Not on filedocumented in this encounter Care Teams Political Analyst Relationship Specialty Start Date End Date Juan José Kendall MD [address] [facility] [address] [place] [address] PCP - General Family Medicine 12/25/22 Juan José Kendall MD [address] [facility] [address] [place] [address] Referring Physician Family Medicine 12/25/22 documented as of this encounter
--- OUTSIDE RECORDS SUMMARY | 2025-02-22 09:14 | XMS_ITS | Encounter Summary ---
Author Organization [employer] ([place], [place], [place], [place], [place]) Address [address] [place] [address] Care Team Providers Care Mine Administrator Supervisor Name Role Phone Juan José Kendall MD Primary Care Provider +- [phone] Juan José Kendall MD Unavailable [phone] Encounter Details Date Type Department Care Team (Late st Contact Info) Description 09/22/2018 Transcribed Document [facility] [place] [address] [place] [address] ProviderLaurie MD [address] [place] [address] Social History Tobacco Use Types Packs/Day Years Used Date Smoking Tobacco: Never Assessed Comments Unknown Sex and Gender Information Value Date Recorded Sex Assigned at Not on file Legal Sex Female 2:23 PM CDT Gender Identity Not on file Sexual Orientation Not on file documented as of this encounter Miscellaneous Notes * Cerner Conversion Note - Laurie ProviderMD - 09/22/2018 3:00 PM CDT Pain Assessment Entered On: 09/22/2018 15:40 EDT Performed On: 09/22/2018 15:55 EDT by FRANTZ BROWN RN Intervention Information: [...] filedocumented in this encounter Care Teams Mine Administrator Supervisor Relationship Specialty Start Date End Date Juan José Kendall MD [address] [facility] [address] [place] [address] PCP - General Family Medicine 12/25/22 Juan José Kendall MD [address] [place] [address] [address] [place] [phone] Referring Physician Family Medicine 12/25/22 documented as of this encounter
--- OUTSIDE RECORDS SUMMARY | 2025-02-22 09:14 | XMS_ITS | Encounter Summary ---
Author Organization [employer] ([place], [place], [place], [place], [place]) Address [address] [place] [address] Care Team Providers Care Branch Service Specialist Name Role Phone Juan José Kendall MD Primary Care Provider +- [phone] Juan José Kendall MD Unavailable [phone] Encounter Details Date Type Department Care Team (Late st Contact Info) Description 10/04/2018 Transcribed Document [facility] [place] [facility] [place] [address] ProviderLaurie MD [address] [place] [address] Social History Tobacco Use Types Packs/Day Years [...] repair. She was more recently admitted to [facility] x2 earlier this month on 08/16 [...] getting wound care. She was transferred [place] [facility] [place] for a higher level of care. [...] the antibiotics without any adverse side effects. Linton removed yesterday at her incision site remains [...] Guerrero would like her to see an qa specialist at after her discharge from here. [...] HTN Cancer Social History: . lives in [place]. No tobacco, ETOH, or illicit drug use. [...] catheter on 10/05/18 Electronically signed by Aleks [facility] Conversion Analytics Specialist Cerner at 07/24/2022 3:57 PM CDT documented in this encounter Plan of Treatment Not on file documented as of this encounter Visit Diagnoses Not on filedocumented in this encounter Care Teams Branch Service Specialist Relationship Specialty Start Date End Date Juan José Kendall MD 12[address] [facility] [address] [place] [phone] PCP - General Family Medicine 12/25/22 Juan José Kendall MD [address] [facility] [address] [place] [phone] Referring Physician Family Medicine 12/25/22 documented as of this encounter
--- OUTSIDE RECORDS SUMMARY | 2025-02-22 09:14 | XMS_ITS | Encounter Summary ---
Author Organization [employer] ([place], [place], [place], [place], [place]) Address [address] [place] [address] Care Team Providers Care Freight Rate Specialist Name Role Phone Juan José Kendall MD Primary Care Provider + [phone] Juan José Kendall MD Unavailable [phone] Encounter Details Date Type Department Care Team (Late st Contact Info) Description 09/22/2018 Transcribed Document [facility] [place] Family Medicine [address] [place] [address] ProviderLaurie MD [address] [place] [address] Social History Tobacco Use Types Packs/Day Years [...] filedocumented in this encounter Care Teams Freight Rate Specialist Relationship Specialty Start Date End Date Juan José Kendall MD 12[address] [facility] [address] [place] [phone] PCP - General Family Medicine 12/25/22 Juan José Kendall MD 12[address] [facility] [address] [place] [phone] Referring Physician Family Medicine 12/25/22 documented as of this encounter
--- OUTSIDE RECORDS SUMMARY | 2025-02-22 09:14 | XMS_ITS | Encounter Summary ---
Author Organization [employer] ([place], [place], [place], [place], [place]) Address [address] [place] [address] Care Team Providers Care Developer Programmer Analyst Name Role Phone Juan José Kendall MD Primary Care Provider + [phone] Juan José Kendall MD Unavailable [phone] Encounter Details Date Type Department Care Team (Late st Contact Info) Description 09/21/2018 Transcribed Document [facility] [address] [place] [address] ProviderLaurie MD [address] [place] [address] Social History Tobacco Use Types Packs/Day Years Used Date Smoking Tobacco: Never Assessed Comments Unknown Sex and Gender Information Value Date Recorded Sex Assigned at Not on file Legal Sex Female 2:23 PM CDT Gender Identity Not on file Sexual Orientation Not on file documented as of this encounter Miscellaneous Notes * Cerner Conversion Note - Historical ProviderMD - 09/21/2018 5:00 AM CDT Chart [...] on filedocumented in this encounter Care Teams Developer Programmer Analyst Relationship Specialty Start Date End Date Juan José Kendall MD [address] [place] [phone] PCP - General Family Medicine 12/25/22 Juan José Kendall MD [address] [place] [phone] Referring Physician Family Medicine 12/25/22 documented as of this encounter
--- OUTSIDE RECORDS SUMMARY | 2025-02-22 09:14 | XMS_ITS | Encounter Summary ---
Author Organization [employer] ([place], [place], [place], [place], [place]) Address [address] [place] [address] Care Team Providers Care Credit Front Office Developer Name Role Phone Juan José Kendall MD Primary Care Provider + [phone] Juan José Kendall MD Unavailable [phone] Encounter Details Date Type Department Care Team (Late st Contact Info) Description 09/10/2018 Transcribed Document [facility] [place] [facility] [place] [address] Laurie Garcia MD [address] [place] [address] Social History Tobacco Use Types Packs/Day Years [...] mL 700 mg 14 mL, IV Piggyback, [id number] docusate sodium 100 mg cap 100 mg 1 Cap, Oral, BID heparin 5,000 units/1 mL inj 5,000 Units 1 mL, SubCutaneous, Q8HInt metoclopramide 10 mg tab 10 mg 1 Tab, Oral, BID metoprolol tartrate 25 mg tab 25 mg 1 Tab, Oral, Daily ondansetron 4 mg/2 mL inj 4 mg 2 mL, IV Push, [id number] pantoprazole EC 40 mg tab 40 mg [...] 14.1 % LOW Lymph # 1.00 x10(3)/uL [place] % 9.6 % HI [place] # 0.68 K/uL Eos % 6.5 % [...] filedocumented in this encounter Care Teams Credit Front Office Developer Relationship Specialty Start Date End Date Juan José Kendall MD 12[address] [facility] [address] [place] [phone] PCP - General Family Medicine 12/25/22 Juan José Kendall MD [address] [facility] [address] [place] [phone] Referring Physician Family Medicine 12/25/22 documented as of this encounter
--- OUTSIDE RECORDS SUMMARY | 2025-02-22 09:15 | XMS_ITS | Encounter Summary ---
Author Organization [employer] ([place], [place], [place], [place], [place]) Address [address] [place] [address] Care Team Providers Care District Scout Executive Name Role Phone Juan José Kendall MD Primary Care Provider + [phone] Juan José Kendall MD Unavailable [phone] Encounter Details Date Type Department Care Team (Late st Contact Info) Description 08/30/2018 Transcribed Document [facility] [place] [facility] [place] [address] ProviderLaurie MD [address] [place] [address] Social History Tobacco Use Types Packs/Day Years Used Date Smoking Tobacco: Never Assessed Comments Unknown Sex and Gender Information Value Date Recorded Sex Assigned at Not on file Legal Sex Female 2:23 PM CDT Gender Identity Not on file Sexual Orientation Not on file documented as of this encounter Miscellaneous Notes * [employer]ner Conversion Note - Laurie ProviderMD - 08/30/2018 5:02 PM CDT Nutrition [...] 43.5-admission Weight Status : Active Isabel Espinoza RD, LD 08/31/2018 15:23 EDT Nutrition Interventions Meals and [...] on filedocumented in this encounter Care Teams District Scout Executive Relationship Specialty Start Date End Date Juan José Kendall MD [address] [place] [address] [facility] [address] [place] [phone] PCP - General Family Medicine 12/25/22 Juan José Kendall MD [address] [facility] [address] [place] [phone] Referring Physician Family Medicine 12/25/22 documented as of this encounter
--- OUTSIDE RECORDS SUMMARY | 2025-02-22 09:15 | XMS_ITS | Encounter Summary ---
Author Organization [employer] ([place], [place], [place], [place], [place]) Address [address] [place] [address] Care Team Providers Care Medical Office Worker Name Role Phone Juan José Kendall MD Primary Care Provider +- [phone] Juan José Kendall MD Unavailable [phone] Encounter Details Date Type Department Care Team (Late st Contact Info) Description 09/21/2018 Transcribed Document [facility] [place] [address] [place] [address] ProviderLaurie MD [address] [place] [address] Social History Tobacco Use Types Packs/Day Years Used Date Smoking Tobacco: Never Assessed Comments Unknown Sex and Gender Information Value Date Recorded Sex Assigned at Not on file Legal Sex Female 2:23 PM CDT Gender Identity Not on file Sexual Orientation Not on file documented as of this encounter Miscellaneous Notes * [employer]ner Conversion Note - Laurie ProviderMD - 09/21/2018 2:00 AM CDT Transportation Planning Technician Details Entered On: 09/21/2018 2:39 EDT Performed [...] 09/21/2018 2:38 EDT Electronically signed by Aleks [facility] Conversion Cattery Operator Cerner at 07/24/2022 3:49 PM CDT documented in this encounter Plan of Treatment Not on file documented as of this encounter Visit Diagnoses Not on filedocumented in this encounter Care Teams Medical Office Worker Relationship Specialty Start Date End Date Juan José Kendall MD 1210 [facility] [address] [place] [phone] PCP - General Family Medicine 12/25/22 Juan José Kendall MD [address] [facility] [address] [place] [phone] Referring Physician Family Medicine 12/25/22 documented as of this encounter
--- OUTSIDE RECORDS SUMMARY | 2025-02-22 09:15 | XMS_ITS | Encounter Summary ---
Author Organization [employer] ([place], [place], [place], [place], [place]) Address [address] [place] [address] Care Team Providers Care Space Planner Name Role Phone Juan José Kendall MD Primary Care Provider +- [phone] Juan José Kendall MD Unavailable [phone] Encounter Details Date Type Department Care Team (Late st Contact Info) Description 08/30/2018 Transcribed Document [facility] Family Medicine [address] [place] [address] ProviderLaurie MD [address] [place] [address] Social History Tobacco Use Types Packs/Day Years Used Date Smoking Tobacco: Never Assessed Comments Unknown Sex and Gender Information Value Date Recorded Sex Assigned at Not on file Legal Sex Female 2:23 PM CDT Gender Identity Not on file Sexual Orientation Not on file documented as of this encounter Miscellaneous Notes * Cerner Conversion Note - Laurie Garcia MD - 08/30/2018 2:46 PM CDT Admission History, [...] Family History of Anesthesia Reaction : None GIOVANNI GANDHI RN - 08/30/2018 14:46 EDT Anticipated Discharge [...] Obtained From : Patient Primary Language : Ukrainian Preferred Communication Mode : Verbal Communication Barrier [...] Level : 46 or > High Risk [place] Fall Interventions : Adequate lighting, Assistive devices [...] Weight, Clinical Dosing Weight Entry Format : [place] Clinical Dosing Weight : 122.73 kg Weight, Pounds : 270 lb Body Surface Area (BSA) : 2.27 m2 Body Mass Index : 43.7 kg/m2 (>HHI) GIOVANNI GANDHI RN - 08/30/2018 17:01 EDT Height Source : Measured Height Entry Format : [place] Height, Feet : 5 ft(Converted to: 152 cm, 60 Inch) Height, Inches : 6 Inch(Converted to: 0 ft 6 Inch, 15.24 cm) Clinical Height : 167.64 cm GIOVANNI GANDHI RN - 08/30/2018 14:46 EDT Weight Source : Bed scale GIOVANNI GANDHI RN - 08/30/2018 17:01 EDT [place] Body Weight : 59 kg GIOVANNI GANDHI [...] Any Spiritual/Cultural Needs or Requests : No Yazidism Preference : Christian GIOVANNI GANDHI RN - 08/30/2018 14:46 EDT Valuables and Belongings Valuables and Belongings : No clothing, No jewelry, No personal devices, No personal items, No assistive devices, No respiratory devices, No medications GIOVANNI GANDHI RN - 08/30/2018 14:46 EDT documented in this encounter Plan of Treatment Not on file documented as of this encounter Visit Diagnoses Not on filedocumented in this encounter Care Teams Space Planner Relationship Specialty Start Date End Date Juan José Kendall MD [address] [place] [phone] PCP - General Family Medicine 12/25/22 Juan José Kendall MD [address] [place] [phone] Referring Physician Family Medicine 12/25/22 documented as of this encounter
--- OUTSIDE RECORDS SUMMARY | 2025-02-22 09:15 | XMS_ITS | Encounter Summary ---
Author Organization [employer] ([place], [place], [place], [place], [place]) Address [address] [place] [address] Care Team Providers Care Admissions Manager Rn Name Role Phone Juan José Kendall MD Primary Care Provider + [phone] Juan José Kendall MD Unavailable [phone] Encounter Details Date Type Department Care Team (Late st Contact Info) Description 10/04/2018 Transcribed Document [facility] [place] [address] [place] [address] ProviderLaurie MD [address] [place] [address] Social History Tobacco Use Types Packs/Day Years [...] Note : 10/04/2018 Bed offer received from [facility]. Family notified,now requesting to reconsider [facility]. I have explained that we need an answer for which place the prefer so that we can move forward with placement. states he will call both facilities, and they will make a decision. Care Management Note Report : PJ NELSON - 10/03/18 15:02:06 10/03/2018 Spoke with [facility], they do not have a contract with [place]. PJ NELSON - 10/03/18 14:57:34 10/03/2018 Call received from [facility], they are unable to offer a bed for this patient. Patient and notified. They request a referral be faxed to [facility] (P: [phone] F: [phone]), faxed per their request. Awaiting a call [...] it be close to her home in [place]. Referrals faxed to Debbie Patricia (Signature liaison), Zach Au, and [facility]. Awaiting a call back. PJ NELSON - 09/28/18 16:26:43 09/28/2018 Fax recieved from [facility] with approval for LTACH services 09/29-10/04. Auth# [id number]. Fax next clinical review to [phone] on 10/05/2018. PJ NELSON - 09/28/18 08:24:24 09/28/2018 Clinical review faxed to [facility] ([phone]) to request coverage for continued LTACH services. Approval pending. Auth# [id number]. PJ NELSON - 09/21/18 15:48:14 09/21/2018 Fax recieved from [facility] with approval for LTACH coverage 09/22/2018-09/28/2018. Auth# [id number]. Fax next clinical review to [phone] on 09/28/2018. NELSONPJ BELLO - 09/21/18 08:22:57 09/21/2018 Clinical review faxed to [facility] ([phone]) to request coverage for continued LTACH services. Approval pending. Auth# [id number]. PJ NELSON - 09/15/18 11:34:17 09/15/2018 Fax recieved from [facility] with approval for LTACH services 09/15-09/21/2018. Auth# [id number]. Fax next clinical review to [phone] on 09/21/2018. PJ NELSON - 09/14/18 08:28:49 09/14/2018 Clinical review faxed to [facility] ([phone]) to request coverage for continued LTACH services. Approval pending. Auth# [id number]. Chuyita Briceno, Clinical Assessment Liaison - 09/09/18 [...] or SNF. She has previously used [facility] and prefers to use them again if needed. The patient owns a shower chair, BSC and w/c. The patient has never needed a dialysis clinic. The patient has not fallen in the past 3 months. PCP- Dr. Ranjeet [facility] Orthopedic- Dr. Shay Guerrero [facility] SNF- [facility] Natalia The patient does wish to return home upon discharge but understands that rehab/SNF may be needed. All papers were explained and signed. No other issues. CM will continue to monitor. Documentation Status Complete : Yes PJ NELSON - 10/04/2018 10:02 EDT documented in this encounter Plan of Treatment Not on file documented as of this encounter Visit Diagnoses Not on filedocumented in this encounter Care Teams Admissions Manager Rn Relationship Specialty Start Date End Date Juan José Kendall MD 12[address] [facility] [address] [place] [phone] PCP - General Family Medicine 12/25/22 Juan José Kendall MD 1210 [facility] [address] [place] [phone] Referring Physician Family Medicine 12/25/22 documented as of this encounter
--- OUTSIDE RECORDS SUMMARY | 2025-02-22 09:15 | XMS_ITS | Encounter Summary ---
Author Organization [employer] ([place], [place], [place], [place], [place]) Address [address] [place] [address] Care Team Providers Care Accounts Payable Or Receivable Clerk Name Role Phone Juan José Kendall MD Primary Care Provider + [phone] Juan José Kendall MD Unavailable [phone] Encounter Details Date Type Department Care Team (Late st Contact Info) Description 09/09/2018 Transcribed Document [facility] [address] [place] [address] ProviderLaurie MD [address] [place] [address] Social History Tobacco Use Types Packs/Day Years [...] 2:21 PM CDT Ke Drug Regimen Review, [facility] Entered On: 09/09/2018 14:24 EDT Performed On: 09/09/2018 14:21 EDT by BETHANY MO RPh Drug Regimen Review Drug Regimen Review for Clinical Issues : Yes-Issues found during review Physicain Contacted Orders Completed : Yes Drug Regimen Review Notes : Home medication list obtained by E pharmacist during present admission. Home medications documented and reconciled. Metoprolol reduced to 25 qday, omeprazole converted to pantoprazole, simvastatin converted to atorvastatin. Other home medications resumed. Hospital transfer medications reviewed and reconciled. All resumed appropriately, except probiotic omitted. Resume probiotic. No other issues noted. Bethany Mo, PharmD BETHANY MO, [facility] - 09/09/2018 14:21 EDT Electronically signed by Aleks [facility] Conversion Tapper Shank [employer]ner at 07/24/2022 3:53 PM CDT documented in this encounter Plan of Treatment Not on file documented as of this encounter Visit Diagnoses Not on filedocumented in this encounter Care Teams Accounts Payable Or Receivable Clerk Relationship Specialty Start Date End Date Juan José Kendall MD [address] [facility] [address] [place] [address] PCP - General Family Medicine 12/25/22 Juan José Kendall MD [address] [facility] [address] [place] [address] Referring Physician Family Medicine 12/25/22 documented as of this encounter
--- OUTSIDE RECORDS SUMMARY | 2025-02-22 09:15 | XMS_ITS | Encounter Summary ---
Author Organization [employer] ([place], [place], [place], [place], [place]) Address [address] [place] [address] Care Team Providers Care Fiberglass Dowel Drawing Operator Name Role Phone Juan José Kendall MD Primary Care Provider +- [phone] Juan José Kendall MD Unavailable [phone] Encounter Details Date Type Department Care Team (Late st Contact Info) Description 09/22/2018 Transcribed Document [facility] [place] [address] [place] [address] ProviderLaurie MD [address] [place] [address] Social History Tobacco Use Types Packs/Day Years [...] Performed On: 09/22/2018 9:31 EDT by FRANTZ BROWN RN Intervention Information: acetaminophen Performed by FRANTZ BROWN RN on 09/22/2018 08:31:00 EDT acetaminophen,500mg Oral [...] filedocumented in this encounter Care Teams Fiberglass Dowel Drawing Operator Relationship Specialty Start Date End Date Juan José Kendall MD [address] [facility] [address] [place] [address] PCP - General Family Medicine 12/25/22 Juan José Kendall MD [address] [place] [address] [address] [place] [address] Referring Physician Family Medicine 12/25/22 documented as of this encounter
--- OUTSIDE RECORDS SUMMARY | 2025-02-22 09:15 | XMS_ITS | Encounter Summary ---
Author Organization [employer] ([place], [place], [place], [place], [place]) Address [address] [place] [address] Care Team Providers Care Social Group Worker Name Role Phone Juan José Kendall MD Primary Care Provider +- [phone] Juan José Kendall MD Unavailable [phone] Encounter Details Date Type Department Care Team (Late st Contact Info) Description 09/21/2018 Transcribed Document [facility] [place] Medicine [address] [place] [address] ProviderLaurie MD [address] [place], [place] [address] Social History Tobacco Use Types Packs/Day Years Used Date Smoking Tobacco: Never Assessed Comments Unknown Sex and Gender Information Value Date Recorded Sex Assigned at Not on file Legal Sex Female 2:23 PM CDT Gender Identity Not on file Sexual Orientation Not on file documented as of this encounter Miscellaneous Notes * Cerner Conversion Note - Historical ProviderMD - 09/21/2018 3:45 PM CDT Care Management Assessment/Plan Entered On: 09/21/2018 15:48 EDT Performed On: 09/21/2018 15:45 EDT by PJ NELSON Care Management Note Care Management Note : 09/21/2018 Fax recieved from [facility] with approval for LTACH coverage 09/22/2018-09/28/2018. Auth# [id number]. Fax next clinical review to [phone] on 09/28/2018. Care Management Note Report : PJ NELSON - 09/21/18 08:22:57 09/21/2018 Clinical review faxed to [facility] ([phone]) to request coverage for continued LTACH services. Approval pending. Auth# [id number]. PJ NELSON - 09/15/18 11:34:17 09/15/2018 Fax recieved from [facility] with approval for LTACH services 09/15-09/21/2018. Auth# [id number]. Fax next clinical review to [phone] on 09/21/2018. PJ NELSON - 09/14/18 08:28:49 09/14/2018 Clinical review faxed to [facility] ([phone]) to request coverage for continued LTACH services. Approval pending. Auth# [id number]. Chuyita Briceno, Clinical Assessment Liaison - 09/09/18 [...] unit or SNF. She has previously used [facility] and prefers to use them again if needed. The patient owns a shower chair, BSC and w/c. The patient has never needed a dialysis clinic. The patient has not fallen in the past 3 months. PCP- Dr. Ranje[facility] Orthopedic- Dr. Shay Guerrero [facility]- - [facility]- [facility] Natalia The patient does wish to return [...] on filedocumented in this encounter Care Teams Social Group Worker Relationship Specialty Start Date End Date Juan José Kendall MD [address] [place] [id number] PCP - General Family Medicine 12/25/22 Juan José Kendall MD [address] [place] [phone] Referring Physician Family Medicine 12/25/22 documented as of this encounter
--- OUTSIDE RECORDS SUMMARY | 2025-02-22 09:15 | XMS_ITS | Encounter Summary ---
Author Organization [employer] ([place], [place], [place], [place], [place]) Address [address] [place] [address] Care Team Providers Care Community Administrator Name Role Phone Juan José Kendall MD Primary Care Provider +- [phone] Juan José Kendall MD Unavailable [phone] Encounter Details Date Type Department Care Team (Late st Contact Info) Description 09/10/2018 Transcribed Document [facility] [place] [facility] [place] [address] ProviderLaurie MD [address] [place] [address] Social History Tobacco Use Types Packs/Day Years Used Date Smoking Tobacco: Never Assessed Comments Unknown Sex and Gender Information Value Date Recorded Sex Assigned at Not on file Legal Sex Female 2:23 PM CDT Gender Identity Not on file Sexual Orientation Not on file documented as of this encounter Miscellaneous Notes * Cerner Conversion Note - Laurie ProviderMD - 09/10/2018 2:00 AM CDT Customer Service Engineer Details Entered On: 09/10/2018 1:43 EDT Performed [...] filedocumented in this encounter Care Teams Community Administrator Relationship Specialty Start Date End Date [...]
--- OUTSIDE RECORDS SUMMARY | 2025-02-22 09:15 | XMS_ITS | Encounter Summary ---
Author Organization [employer] ([place], [place], [place], [place], [place]) Address [address] [place] [address] Care Team Providers Care Data Entry Manager Name Role Phone Juan José Kendall MD Primary Care Provider +- [phone] Juan José Kendall MD Unavailable [phone] Encounter Details Date Type Department Care Team (Late st Contact Info) Description 09/09/2018 Transcribed Document [facility] [place] [address] [place] [address] ProviderLaurie MD [address] [place] [address] Social History Tobacco Use Types Packs/Day Years [...] Performed On: 09/09/2018 10:34 EDT by FRANTZ BROWN RN Intervention Information: acetaminophen Performed by FRANTZ BROWN RN on 09/09/2018 09:34:00 EDT acetaminophen,500mg Oral [...] on filedocumented in this encounter Care Teams Data Entry Manager Relationship Specialty Start Date End Date Jua nJosé Kendall MD [address] [facility] [address] [place] [address] PCP - General Family Medicine 12/25/22 Juan José Kendall MD [address] [facility] [address] [place] [phone] Referring Physician Family Medicine 12/25/22 documented as of this encounter
--- OUTSIDE RECORDS SUMMARY | 2025-02-22 09:15 | XMS_ITS | Encounter Summary ---
Author Organization [employer] ([place], [place], [place], [place], [place]) Address [address] [place] [address] Care Team Providers Care Car Inspector Name Role Phone Juan José Kendall MD Primary Care Provider + [phone] Juan José Kendall MD Unavailable [phone] Encounter Details Date Type Department Care Team (Late st Contact Info) Description 09/09/2018 Transcribed Document [facility] [place] Family Medicine [address] [place] [address] ProviderLaurie MD [address] [place] [address] Social History Tobacco Use Types Packs/Day Years [...] 09/09/2018 17:00 EDT by FRANTZ BROWN, RN Chart Check Powerplans Initiated/Discontinued as Appropriate : Yes All Active Orders Reviewed : Yes FRANTZ BROWN, RN - 09/09/2018 17:07 EDT documented in this encounter Plan of Treatment Not on file documented as of this encounter Visit Diagnoses Not on filedocumented in this encounter Care Teams Car Inspector Relationship Specialty Start Date End Date Juan José Kendall MD [address] [place] [address] [place] [address] PCP - General Family Medicine 12/25/22 Juan José Kendall MD [address] [place] [address] [place] [phone] Referring Physician Family Medicine 12/25/22 documented as of this encounter
--- OUTSIDE RECORDS SUMMARY | 2025-02-22 09:15 | XMS_ITS | Encounter Summary ---
Author Organization [employer] ([place], [place], [place], [place], [place]) Address [address] [place] [address] Care Team Providers Care Salt Operator Name Role Phone Juan José Kendall MD Primary Care Provider +- [phone] Juan José Kendall MD Unavailable [phone] Encounter Details Date Type Department Care Team (Late st Contact Info) Description 08/31/2018 Transcribed Document [facility] [place] Family Medicine [address] [place] [address] ProviderLaurie MD [address] [place] [address] Social History Tobacco Use Types Packs/Day Years Used Date Smoking Tobacco: Never Assessed Comments Unknown Sex and Gender Information Value Date Recorded Sex Assigned at Not on file Legal Sex Female 2:23 PM CDT Gender Identity Not on file Sexual Orientation Not on file documented as of this encounter Miscellaneous Notes * Byron Conversion Note - Laurie ProviderMD - 08/31/2018 2:00 AM CDT Conveyor Installer Details Entered On: 08/31/2018 3:32 EDT Performed [...] Steph Avendaño RN - 08/31/2018 3:32 EDT Electronically signed by Aleks [facility] Conversion Assistant Bookkeeper Cerner at 07/24/2022 3:35 PM CDT documented in this encounter Plan of Treatment Not on file documented as of this encounter Visit Diagnoses Not on filedocumented in this encounter Care Teams Salt Operator Relationship Specialty Start Date End Date Juan José Kendall MD [address] [facility] [address] [place] [id number] PCP - General Family Medicine 12/25/22 Juan José Kendall MD [address] [facility] [address] [place] [phone] Referring Physician Family Medicine 12/25/22 documented as of this encounter
--- OUTSIDE RECORDS SUMMARY | 2025-02-22 09:15 | XMS_ITS | Encounter Summary ---
Author Organization [employer] ([place], [place], [place], [place], [place]) Address [address] [place] [address] Care Team Providers Care Analyzer Sales Name Role Phone Juan José Kendall MD Primary Care Provider + [phone] Juan José Kendall MD Unavailable [phone] Encounter Details Date Type Department Care Team (Late st Contact Info) Description 10/04/2018 Transcribed Document [facility] [place] [address] [place] [address] ProviderLaurie MD [address] [place] [address] Social History Tobacco Use Types Packs/Day Years [...] on filedocumented in this encounter Care Teams Analyzer Sales Relationship Specialty Start Date End Date Juan José Kendall MD [address] [place] [address] PCP - General Family Medicine 12/25/22 Juan José Kendall MD [address] [place] [phone] Referring Physician Family Medicine 12/25/22 documented as of this encounter
--- OUTSIDE RECORDS SUMMARY | 2025-02-22 09:15 | XMS_ITS | Encounter Summary ---
Author Organization [employer] ([place], [place], [place], [place], [place]) Address [address] [place] [address] Care Team Providers Care Diesel Maintenance Electrician Name Role Phone Juan José Kendall MD Primary Care Provider +- [phone] Juan José Kendall MD Unavailable [phone] Encounter Details Date Type Department Care Team (Late st Contact Info) Description 10/04/2018 Transcribed Document [facility] [place] Family Medicine [address] [place] [address] ProviderLaurie MD [address] [place] [address] Social History Tobacco Use Types Packs/Day Years [...] 6:34 EDT Pain Scale Intensity : 0 FRANCISOC MOREJON RN - 10/04/2018 6:34 EDT Image 4 - Images currently included in the form version of this document have not been included in the text rendition version of the form. documented in this encounter Plan of Treatment Not on file documented as of this encounter Visit Diagnoses Not on filedocumented in this encounter Care Teams Diesel Maintenance Electrician Relationship Specialty Start Date End Date Juan [...]
--- OUTSIDE RECORDS SUMMARY | 2025-02-22 09:15 | XMS_ITS | Encounter Summary ---
Author Organization [employer] ([place], [place], [place], [place], [place]) Address [address] [place] [address] Care Team Providers Care Sales Agent Protective Service Name Role Phone Juan José Kendall MD Primary Care Provider + [phone] Juan José Kendall MD Unavailable [phone] Encounter Details Date Type Department Care Team (Late st Contact Info) Description 08/30/2018 Transcribed Document [facility] [place] [address] [place] [address] ProviderLaurie MD [address] [place] [address] Social History Tobacco Use Types Packs/Day Years Used Date Smoking Tobacco: Never Assessed Comments Unknown Sex and Gender Information Value Date Recorded Sex Assigned at Not on file Legal Sex Female 2:23 PM CDT Gender Identity Not on file Sexual Orientation Not on file documented as of this encounter Miscellaneous Notes * Cerner Conversion Note - Laurie ProviderMD - 08/30/2018 3:21 PM CDT Consult [...] EDT SHEN WOODS - 08/31/2018 9:28 EDT documented in this encounter Plan of Treatment Not on file documented as of this encounter Visit Diagnoses Not on filedocumented in this encounter Care Teams Sales Agent Protective Service Relationship Specialty Start Date End Date Juan José Kendall MD [address] [facility] [address] [place] [address] PCP - General Family Medicine 12/25/22 Juan José Kendall MD [address] [facility] [address] [place] [address] Referring Physician Family Medicine 12/25/22 documented as of this encounter
--- OUTSIDE RECORDS SUMMARY | 2025-02-22 09:16 | XMS_ITS | Encounter Summary ---
Author Organization [employer] ([place], [place], [place], [place], [place]) Address [address] [place] [address] Care Team Providers Care Library Serials Assistant Name Role Phone Juan José Kendall MD Primary Care Provider +- [phone] Juan José Kendall MD Unavailable [phone] Encounter Details Date Type Department Care Team (Late st Contact Info) Description 10/04/[address] [facility] [place] Family Medicine [address] [place] [address] ProviderLaurie MD [address] [place] [address] Social History Tobacco Use Types Packs/Day Years [...] filedocumented in this encounter Care Teams Library Serials Assistant Relationship Specialty Start Date End Date Juan José Kendall MD [address] [place] [address] [address] [place] [phone] PCP - General Family Medicine 12/25/22 Juan José Kendall MD [address] [place] [address] [address] [place] [phone] Referring Physician Family Medicine 12/25/22 documented as of this encounter
--- OUTSIDE RECORDS SUMMARY | 2025-02-22 09:16 | XMS_ITS | Encounter Summary ---
Author Organization [employer] ([place], [place], [place], [place], [place]) Address [address] [place] [address] Care Team Providers Care Shingle Trimmer Name Role Phone Juan José Kendall MD Primary Care Provider +- [phone] Juan José Kendall MD Unavailable [phone] Encounter Details Date Type Department Care Team (Late st Contact Info) Description 10/03/[address] [facility] [place] Family Medicine [address] [place] [address] ProviderLaurie MD [address] [place] [address] Social History Tobacco Use Types Packs/Day Years Used Date Smoking Tobacco: Never Assessed Comments Unknown Sex and Gender Information Value Date Recorded Sex Assigned at Not on file Legal Sex Female 2:23 PM CDT Gender Identity Not on file Sexual Orientation Not on file documented as of this encounter Miscellaneous Notes * Cerner Conversion Note - Laurie Garcia MD - 10/03/2018 9:00 AM CDT Pain Assessment [...] on filedocumented in this encounter Care Teams Shingle Trimmer Relationship Specialty Start Date End Date Juan José Kendall MD [address] [facility] [address] [place] [phone] PCP - General Family Medicine 12/25/22 Juan José Kendall MD [address] [place] [address] [address] [place] [phone] Referring Physician Family Medicine 12/25/22 documented as of this encounter
--- OUTSIDE RECORDS SUMMARY | 2025-02-22 09:16 | XMS_ITS | Encounter Summary ---
Author Organization [employer] ([place], [place], [place], [place], [place]) Address [address] [place] [address] Care Team Providers Care Stonework Tracer Name Role Phone Juan José Kendall MD Primary Care Provider +- [phone] Juan José Kendall MD Unavailable [phone] Encounter Details Date Type Department Care Team (Late st Contact Info) Description 08/31/2018 Transcribed Document [facility] [place] [address] [place] [address] Laurie Garcia MD [address] [place] [address] Social History Tobacco Use Types Packs/Day Years [...] on filedocumented in this encounter Care Teams Stonework Tracer Relationship Specialty Start Date End Date Juan José Kendall MD [address] [facility] [address] [place] [address] PCP - General Family Medicine 12/25/22 Juan José Kendall MD [address] [facility] [address] [place] [address] Referring Physician Family Medicine 12/25/22 documented as of this encounter
--- OUTSIDE RECORDS SUMMARY | 2025-02-22 09:16 | XMS_ITS | Encounter Summary ---
Author Organization [employer] ([place], [place], [place], [place], [place]) Address [address] [place] [address] Care Team Providers Care Fixed Income Manager Name Role Phone Juan José Kendall MD Primary Care Provider + [phone] Juan José Kendall MD Unavailable [phone] Encounter Details Date Type Department Care Team (Late st Contact Info) Description 09/21/2018 Transcribed Document [facility] [place] Family Medicine [facility] [place] [address] Laurie Garcia MD [address] [place] [address] Social History Tobacco Use Types Packs/Day Years [...] inj 4 mg 2 mL, IV Push, [id number] pantoprazole EC 40 mg tab 40 mg [...] Water 250 mL 1,000 mg, IV Piggyback, [id number] Continuous: (0) PRN: (22) acetaminophen 325 mg [...] on filedocumented in this encounter Care Teams Fixed Income Manager Relationship Specialty Start Date End Date Juan José Kendall MD [address] [facility] [address] [place] [phone] PCP - General Family Medicine 12/25/22 Juan José Kendall MD [address] [place] [facility] [address] [place] [address] Referring Physician Family Medicine 12/25/22 documented as of this encounter
--- OUTSIDE RECORDS SUMMARY | 2025-02-22 09:16 | XMS_ITS | Encounter Summary ---
Author Organization [employer] ([place], [place], [place], [place], [place]) Address [address] [place] [address] Care Team Providers Care Look Out Tower Fire Watcher Name Role Phone Juan José Kendall MD Primary Care Provider + [phone] Juan José Kendall MD Unavailable [phone] Encounter Details Date Type Department Care Team (Late st Contact Info) Description 08/30/2018 Transcribed Document [facility] [place] [facility] [place] [address] Laurie Garcia MD [address] [place] [address] Social History Tobacco Use Types Packs/Day Years [...] tendon repair. Patient was recently admitted to [facility] twice, first time on 08/10/2018 and was [...] morbidly obese. She was transferred today to [facility] for higher level of care. Postoperative Information [...] 0.9% 50 mL 2 Gram, IV Piggyback, [id number] docusate sodium 100 mg cap 100 mg [...] to her left lower extremity. Integumentary: Warm, [place], Intact, No pallor, No rash, 2 cm [...] as listed above. Electronically signed by Aleks, [facility] Conversion Residential Sales Executive Cerner at 07/24/2022 3:47 PM CDT documented in this encounter Plan of Treatment Not on file documented as of this encounter Visit Diagnoses Not on filedocumented in this encounter Care Teams Look Out Tower Fire Watcher Relationship Specialty Start Date End Date Juan José Kendall MD [address] [facility] [address] [place] [phone] PCP - General Family Medicine 12/25/22 Juan José Kendall MD [address] [facility] [address] [place] [phone] Referring Physician Family Medicine 12/25/22 documented as of this encounter
--- OUTSIDE RECORDS SUMMARY | 2025-02-22 09:16 | XMS_ITS | Encounter Summary ---
Author Organization [employer] ([place], [place], [place], [place], [place]) Address [address] [place] [address] Care Team Providers Care Electrical Controls Designer Name Role Phone Juan José Kendall MD Primary Care Provider + [phone] Juan José Kendall MD Unavailable [phone] Encounter Details Date Type Department Care Team (Late st Contact Info) Description 09/10/2018 Transcribed Document [facility] [place] [address] [place] [address] ProviderLaurie MD [address] [place] [address] Social History Tobacco Use Types Packs/Day Years [...] 09/10/2018 9:00 AM CDT CareSet Assessment Admission, [facility] Entered On: 09/10/2018 16:02 EDT Performed On: [...] Tx Procedures and Programs : None ORLY RICAHRDS RN - 09/10/2018 16:01 EDT Electronically signed by Aleks [facility] Conversion Experimental Welder Cerner at 07/24/2022 3:32 PM CDT documented in this encounter Plan of Treatment Not on file documented as of this encounter Visit Diagnoses Not on filedocumented in this encounter Care Teams Electrical Controls Designer Relationship Specialty Start Date End Date Juan José Kendall MD [address] [facility] [address] [place] [address] PCP - General Family Medicine 12/25/22 Juan José Kendall MD 12[address] [facility] [address] [place] [address] Referring Physician Family Medicine 12/25/22 documented as of this encounter
--- OUTSIDE RECORDS SUMMARY | 2025-02-22 09:16 | XMS_ITS | Encounter Summary ---
Author Organization [employer] ([place], [place], [place], [place], [place]) Address [address] [place] [address] Care Team Providers Care Manager Retirement Name Role Phone Juan José Kendall MD Primary Care Provider + [phone] Juan José Kendall MD Unavailable [phone] Encounter Details Date Type Department Care Team (Late st Contact Info) Description 09/21/2018 Transcribed Document [facility] [place] [address] [place] [address] ProviderLaurie MD [address] [place] [address] Social History Tobacco Use Types Packs/Day Years [...] Performed On: 09/21/2018 10:31 EDT by NATALEE DALEY PT Attempt to Treat Unable to Treat [...] filedocumented in this encounter Care Teams Manager Retirement Relationship Specialty Start Date End Date Juan José Kendall MD [address] [facility] [address] [place] [phone] PCP - General Family Medicine 12/25/22 Juan José Kendall MD [address] [place] [address] [place] [address] Referring Physician Family Medicine 12/25/22 documented as of this encounter
--- OUTSIDE RECORDS SUMMARY | 2025-02-22 09:16 | XMS_ITS | Encounter Summary ---
Author Organization [employer] ([place], [place], [place], [place], [place]) Address [address] [place] [address] Care Team Providers Care Boat Repairer Name Role Phone Juan José Kendall MD Primary Care Provider + [phone] Juan José Kendall MD Unavailable [phone] Encounter Details Date Type Department Care Team (Late st Contact Info) Description 09/09/2018 Transcribed Document [facility] [place] Family Medicine [address] [place] [address] ProviderLaurie MD [address] [place] [address] Social History Tobacco Use Types Packs/Day Years [...] : No ostomy assessments reported. ALEX FREY, RN - 09/09/2018 12:18 EDT Electronically signed by [facility] Conversion Dental Laboratory Assistant Cerner at 07/24/2022 3:47 PM CDT documented in this encounter Plan of Treatment Not on file documented as of this encounter Visit Diagnoses Not on filedocumented in this encounter Care Teams Boat Repairer Relationship Specialty Start Date End Date Juan José Kendall MD [address] [place] [facility] [address] [place] [address] PCP - General Family Medicine 12/25/22 Juan José Kendall MD 12[address] [facility] [address] [place] [address] Referring Physician Family Medicine 12/25/22 documented as of this encounter
--- OUTSIDE RECORDS SUMMARY | 2025-02-22 09:17 | XMS_ITS | Encounter Summary ---
Author Organization [employer] ([place], [place], [place], [place], [place]) Address [address] [place] [address] Care Team Providers Care Drilling Superintendent Name Role Phone Juan José Kendall MD Primary Care Provider +- [phone] Juan José Kendall MD Unavailable [phone] Encounter Details Date Type Department Care Team (Late st Contact Info) Description 09/09/2018 Transcribed Document [facility] [place] Family [place] [facility] [place] [address] ProviderLaurie MD [address] [place] [address] Social History Tobacco Use Types Packs/Day Years [...] Linh Honeycutt RN - 09/09/2018 4:51 EDT Electronically signed by Blayne Fink Conversion Continuous Mining Machine Lode Miner Cerner at 07/24/2022 3:57 PM CDT documented in this encounter Plan of Treatment Not on file documented as of this encounter Visit Diagnoses Not on filedocumented in this encounter Care Teams Drilling Superintendent Relationship Specialty Start Date End Date Juan José Kendall MD [address] [facility] [address] [place] [address] PCP - General Family Medicine 12/25/22 Juan José Kendall MD [address] [facility] [address] [place] [address] Referring Physician Family Medicine 12/25/22 documented as of this encounter
--- OUTSIDE RECORDS SUMMARY | 2025-02-22 09:17 | XMS_ITS | Encounter Summary ---
Author Organization [employer] ([place], [place], [place], [place], [place]) Address [address] [place] [address] Care Team Providers Care Hotel Or Motel Receptionist Name Role Phone Juan José Kendall MD Primary Care Provider +- [phone] Juan José Kendall MD Unavailable [phone] Encounter Details Date Type Department Care Team (Late st Contact Info) Description 09/21/2018 Transcribed Document [facility] [place] Family Medicine [address] [place] [address] ProviderLaurie MD [address] [place], [place] [address] Social History Tobacco Use Types Packs/Day Years [...] Note : 09/21/2018 Clinical review faxed to [facility] ([phone]) to request coverage for continued LTACH services. Approval pending. Auth# [id number]. Care Management Note Report : PJ NELSON - 09/15/18 11:34:17 09/15/2018 Fax recieved from [facility] with approval for LTACH services 09/15-09/21/2018. Auth# [id number]. Fax next clinical review to [phone] on 09/21/2018. PJ NELSON - 09/14/18 08:28:49 09/14/2018 [facility][phone][facility] to request coverage for continued LTACH services. Approval pending. Auth# [id number]. Chuyita Briceno, Clinical Assessment Liaison - 09/09/18 [...] unit or SNF. She has previously used [facility] and prefers to use them again if needed. The patient owns a shower chair, BSC and w/c. The patient has never needed a dialysis clinic. The patient has not fallen in the past 3 months. PCP- Dr. Ranjeet [facility]- Orthopedic- Dr. Shay Guerrero [facility]- - [facility]- [facility] Natalia The patient does wish to [...] filedocumented in this encounter Care Teams Hotel Or Motel Receptionist Relationship Specialty Start Date End Date Juan José Kendall MD 1210 [facility] [address] [place] [address] PCP - General Family Medicine 12/25/22 Juan José Kendall MD [address] [place] [facility] [address] [place] [address] Referring Physician Family Medicine 12/25/22 documented as of this encounter
--- OUTSIDE RECORDS SUMMARY | 2025-02-22 09:17 | XMS_ITS | Encounter Summary ---
Author Organization [employer] ([place], [place], [place], [place], [place]) Address [address] [place] [address] Care Team Providers Care Safety Lamp Keeper Name Role Phone Juan José Kendall MD Primary Care Provider +- [phone] Juan José Kendall MD Unavailable [phone] Encounter Details Date Type Department Care Team (Late st Contact Info) Description 08/31/2018 Transcribed Document [facility] [place] Family Medicine [address] [place] [address] ProviderLaurie MD [address] [place], [place] [id number] Social History Tobacco Use Types Packs/Day Years Used Date Smoking Tobacco: Never Assessed Comments Unknown Sex and Gender Information Value Date Recorded Sex Assigned at Not on file Legal Sex Female 2:23 PM CDT Gender Identity Not on file Sexual Orientation Not on file documented as of this encounter Miscellaneous Notes * Cerner Conversion Note - Laurie ProviderMD - 08/31/2018 2:47 PM CDT [facility] PreOp Summary Primary Physician: JONG SANTACRUZ MD-ORT Finalized Date/Time: 08/31/18 16:02:21 Pt. Name: ROSSY TRUDI KAY /Sex: 1955 Female Med Rec #: [id number] Physician: JONES HIDALGO MD-INT Financial #: [id number] Pt. Type: I Room/Bed: [facility]/ Admit/Disch: 08/30/18 14:25:00 - Institution: [facility] PreOp Case Times Entry 1 In Preop 08/31/18 11:30:00 Ready for Holding n/a Room Patient Ready for 08/31/18 13:05:00 Surgery Patient Out of Preop 08/31/18 14:00:00 Patient Out of n/a Holding Room Last Modified By: TANMAY BEY RN 08/31/18 16:02:04 [facility] PreOp Case Times Audit 08/31/18 16:02:04 Keg Washer: FLOYDSF Modifier: FLOYDSF <+> 1 Patient Out of Preop <+> 1 Patient Ready for Surgery Finalized By: TANMAY BEY, RN Document Signatures Signed By: TANMAY BEY RN 08/31/18 16:02 documented in this encounter Plan of Treatment Not on file documented as of this encounter Visit Diagnoses Not on filedocumented in this encounter Care Teams Safety Lamp Keeper Relationship Specialty Start Date End Date Juan José Kendall MD 1210 [facility] [address] [place] [address] PCP - General Family Medicine 12/25/22 Juan José Kendall MD 1210 [facility] [address] [place] [address] Referring Physician Family Medicine 12/25/22 documented as of this encounter
--- OUTSIDE RECORDS SUMMARY | 2025-02-22 09:17 | XMS_ITS | Encounter Summary ---
Author Organization [employer] ([place], [place], [place], [place], [place]) Address [address] [place] [address] Care Team Providers Care Electronics Hardware Design Engineer Name Role Phone Juan José Kendall MD Primary Care Provider + [phone] Juan José Kendall MD Unavailable [phone] Encounter Details Date Type Department Care Team (Late st Contact Info) Description 09/10/2018 Transcribed Document [facility] [place] Medicine [address] [place] [address] ProviderLaurie MD [address] [place] [address] Social History Tobacco Use Types Packs/Day Years [...] on filedocumented in this encounter Care Teams Electronics Hardware Design Engineer Relationship Specialty Start Date End Date Juan José Kendall MD [address] [place] [address] [place] [address] PCP - General Family Medicine 12/25/22 Juan José Kendall MD [address] [place] [address] [place] [address] Referring Physician Family Medicine 12/25/22 documented as of this encounter
--- OUTSIDE RECORDS SUMMARY | 2025-02-22 09:17 | XMS_ITS | Encounter Summary ---
Author Organization [employer] ([place], [place], [place], [place], [place]) Address [address] [place] [address] Care Team Providers Care Rooter Operator Name Role Phone Juan José Kendall MD Primary Care Provider +- [phone] Juan José Kendall MD Unavailable [phone] Encounter Details Date Type Department Care Team (Late st Contact Info) Description 09/21/2018 Transcribed Document [facility] [place] [address] [place] [address] ProviderLaurie MD [address] [place] [address] Social History Tobacco Use Types Packs/Day Years [...] on filedocumented in this encounter Care Teams Rooter Operator Relationship Specialty Start Date End Date Juan José Kendall MD 1210 [facility] [address] [place] [address] PCP - General Family Medicine 12/25/22 Juan José Kendall MD [address] [facility] [address] [place] [address] Referring Physician Family Medicine 12/25/22 documented as of this encounter
--- OUTSIDE RECORDS SUMMARY | 2025-02-22 09:17 | XMS_ITS | Encounter Summary ---
Author Organization [employer] ([place], [place], [place], [place], [place]) Address [address] [place] [address] Care Team Providers Care Hull Molder Name Role Phone Juan José Kendall MD Primary Care Provider + [phone] Juan José Kendall MD Unavailable [phone] Encounter Details Date Type Department Care Team (Late st Contact Info) Description 08/31/2018 Transcribed Document [facility] [place] Family Medicine [address] [place] [address] ProviderLaurie MD [address] [place] [address] Social History Tobacco Use Types Packs/Day Years [...] EDT SHEN WOODS - 08/31/2018 8:40 EDT documented in this encounter Plan of Treatment Not on file documented as of this encounter Visit Diagnoses Not on filedocumented in this encounter Care Teams Hull Molder Relationship Specialty Start Date End Date Juan José Kendall MD 1210 [facility] [address] [place] [address] PCP - General Family Medicine 12/25/22 Juan José Kendall MD 12[address] [facility] [address] [place] [address] Referring Physician Family Medicine 12/25/22 documented as of this encounter
--- OUTSIDE RECORDS SUMMARY | 2025-02-22 09:17 | XMS_ITS | Encounter Summary ---
Author Organization [employer] ([place], [place], [place], [place], [place]) Address [address] [place] [address] Care Team Providers Care Warehouse Associate Driver Name Role Phone Juan José Kendall MD Primary Care Provider + [phone] Juan José Kendall MD Unavailable [phone] Encounter Details Date Type Department Care Team (Late st Contact Info) Description 10/04/2018 Transcribed Document [facility] [place] [facility] [place] [address] Laurie Garcia MD [address] [place] [address] Social History Tobacco Use Types Packs/Day Years [...] chair today ???Low prealbumin level ???Scheduled for alf facility in a.m. ???Scheduled to see Dr. [...] inj 4 mg 2 mL, IV Push, [id number] pantoprazole EC 40 mg tab 40 mg [...] 18.2 % LOW Lymph # 1.08 x10(3)/uL Butts % 10.5 % HI Butts # 0.62 K/uL Eos % 6.6 % [...] function, blood glucose, and urine output. For alf facility in a.m.. documented in this encounter Plan of Treatment Not on file documented as of this encounter Visit Diagnoses Not on filedocumented in this encounter Care Teams Warehouse Associate Driver Relationship Specialty Start Date End Date [...]
[2025-02-22 09:18] LABS: Hematocrit 30.5 % (37.0-47.0); Hemoglobin 10.1 g/dL (12.2-16.2); Immature Granulocytes % 0.2 %; Mean Corpuscular HGB Conc 33.1 g/dL (31.8-35.4); Mean Corpuscular Hemoglobin 32.1 pg (27.0-31.2); Mean Corpuscular Volume 96.8 fl (81-99); Nucleated Red Blood Cells % 0 %; Platelet Count 179 K/mm3 (142-424); Red Blood Count 3.15 M/mm3 (4.20-5.40); Red Cell Distribution Width-SD 49.1 fL; White Blood Count 4.6 K/mm3 (4.8-10.8)
--- OUTSIDE RECORDS SUMMARY | 2025-02-22 09:18 | XMS_ITS | Encounter Summary ---
Author Organization [employer] ([place], [place], [place], [place], [place]) Address [address] [place] [address] Care Team Providers Care Logistics Technician Name Role Phone Juan José Kendall MD Primary Care Provider + [phone] Juan José Kendall MD Unavailable [phone] Encounter Details Date Type Department Care Team (Late st Contact Info) Description 09/13/2018 Transcribed Document [facility] [place] Family Medicine [address] [place] [address] ProviderLaurie MD [address] [place] [address] Social History Tobacco Use Types Packs/Day Years [...] ENOCH PERDOMO LPN - 09/13/2018 17:38 EDT Electronically signed by Aleks [facility] Conversion Size Worker Cerner at 07/24/2022 3:54 PM CDT documented in this encounter Plan of Treatment Not on file documented as of this encounter Visit Diagnoses Not on filedocumented in this encounter Care Teams Logistics Technician Relationship Specialty Start Date End Date Juan José Kendall MD [address] [place] [address] [place] [address] PCP - General Family Medicine 12/25/22 Juan José Kendall MD [address] [place] [address] [place] [address] Referring Physician Family Medicine 12/25/22 documented as of this encounter
--- OUTSIDE RECORDS SUMMARY | 2025-02-22 09:18 | XMS_ITS | Encounter Summary ---
Author Organization [employer] ([place], [place], [place], [place], [place]) Address [address] [place] [address] Care Team Providers Care Cotton Farmworker Name Role Phone Juan José Kendall MD Primary Care Provider +- [phone] Juan José Kendall MD Unavailable [phone] Encounter Details Date Type Department Care Team (Late st Contact Info) Description 09/01/2018 Transcribed Document [facility] [place] Family Medicine [address] [place] [address] Laurie aGrcia MD [address] [place] [address] Social History Tobacco Use Types Packs/Day Years Used Date Smoking Tobacco: Never Assessed Comments Unknown Sex and Gender Information Value Date Recorded Sex Assigned at Not on file Legal Sex Female 2:23 PM CDT Gender Identity Not on file Sexual Orientation Not on file documented as of this encounter Miscellaneous Notes * Cerner Conversion Note - Laurie Garcia MD - 09/01/2018 1:00 PM CDT Pain Assessment [...] filedocumented in this encounter Care Teams Cotton Farmworker Relationship Specialty Start Date End Date Juan José Kendall MD 12[address] [facility] [address] [place] [address] PCP - General Family Medicine 12/25/22 Juan José Kendall MD 1210 [facility] [address] [place] [address] Referring Physician Family Medicine 12/25/22 documented as of this encounter
--- OUTSIDE RECORDS SUMMARY | 2025-02-22 09:18 | XMS_ITS | Encounter Summary ---
Author Organization [employer] ([place], [place], [place], [place], [place]) Address [address] [place] [address] Care Team Providers Care Traffic Lieutenant Name Role Phone Juan José Kendall MD Primary Care Provider +- [phone] Juan José Kendall MD Unavailable [phone] Encounter Details Date Type Department Care Team (Late st Contact Info) Description 09/02/2018 Transcribed Document [facility] [place] Family Medicine [address] [place] [address] ProviderLaurie MD [address] [place] [address] Social History Tobacco Use Types Packs/Day Years Used Date Smoking Tobacco: Never Assessed Comments Unknown Sex and Gender Information Value Date Recorded Sex Assigned at Not on file Legal Sex Female 2:23 PM CDT Gender Identity Not on file Sexual Orientation Not on file documented as of this encounter Miscellaneous Notes * Cerner Conversion Note - Laurie ProviderMD - 09/02/2018 2:00 AM CDT President And Chief Commercial Officer Details Entered On: 09/02/2018 0:18 EDT Performed [...] Line : No Dayday Crump RN - 09/02/2018 0:18 EDT Electronically signed by Aleks [facility] Conversion Lubricating Machine Tender Cerner at 07/24/2022 3:41 PM CDT documented in this encounter Plan of Treatment Not on file documented as of this encounter Visit Diagnoses Not on filedocumented in this encounter Care Teams Traffic Lieutenant Relationship Specialty Start Date End Date Juan José Kendall MD [facility] [facility] [address] [place] [phone] PCP - General Family Medicine 12/25/22 Juan José Kendall MD [address] [facility] [address] [place] [address] Referring Physician Family Medicine 12/25/22 documented as of this encounter
--- OUTSIDE RECORDS SUMMARY | 2025-02-22 09:18 | XMS_ITS | Encounter Summary ---
Author Organization [employer] ([place], [place], [place], [place], [place]) Address [address] [place] [address] Care Team Providers Care Associate Biological Sales Name Role Phone Juan José Kendall MD Primary Care Provider + [phone] Juan José Kendall MD Unavailable [phone] Encounter Details Date Type Department Care Team (Late st Contact Info) Description 09/13/2018 Transcribed Document [facility] [place] [facility] [place] [address] Laurie Garcia MD [address] [place] [address] Social History Tobacco Use Types Packs/Day Years [...] mL 700 mg 14 mL, IV Piggyback, [id number] heparin 5,000 units/1 mL inj 5,000 Units 1 mL, SubCutaneous, Q8HInt metoclopramide 10 mg tab 10 mg 1 Tab, Oral, BID metoprolol tartrate 25 mg tab 25 mg 1 Tab, Oral, Daily ondansetron 4 mg/2 mL inj 4 mg 2 mL, IV Push, [id number] pantoprazole EC 40 mg tab 40 mg [...] filedocumented in this encounter Care Teams Associate Biological Sales Relationship Specialty Start Date End Date Juan José Kendall MD [address] [place] [facility] [address] [place] [address] PCP - General Family Medicine 12/25/22 Juan José Kendall MD 1210 [facility] [address] [place] [address] Referring Physician Family Medicine 12/25/22 documented as of this encounter
--- OUTSIDE RECORDS SUMMARY | 2025-02-22 09:18 | XMS_ITS | Encounter Summary ---
Author Organization [employer] ([place], [place], [place], [place], [place]) Address [address] [place] [address] Care Team Providers Care Chief Design Engineer Name Role Phone Juan José Kendall MD Primary Care Provider +- [phone] Juan José Kendall MD Unavailable [phone] Encounter Details Date Type Department Care Team (Late st Contact Info) Description 09/01/2018 Transcribed Document [facility] [place] [facility] [place] [address] ProviderLaurie MD [address] [place] [address] Social History Tobacco Use Types Packs/Day Years Used Date Smoking Tobacco: Never Assessed Comments Unknown Sex and Gender Information Value Date Recorded Sex Assigned at Not on file Legal Sex Female 2:23 PM CDT Gender Identity Not on file Sexual Orientation Not on file documented as of this encounter Miscellaneous Notes * Cerner Conversion Note - Laurie Garcia MD - 09/01/2018 5:34 PM CDT Patient: TRUDI [...] repair. She was more recently admitted to [facility] x2 earlier this month on [...] getting wound care. She was transferred to [facility] today for a higher level of care. [...] 50 m - 2 Gram, IV Piggyback, [id number], infuse over 30 Minute(s), Routine DAPTOmycin + Sodium Chloride 0.9% intravenous solution 50 mL - 700 mg, IV Piggyback, [id number], infuse over 30 Minute(s) Cardiovascular metoprolol (Lopressor) [...] (SEPTEMBER 01 12:) Mon HR 89 (SEPTEMBER 01:37) 83 (AUGUST 31 17:47) 105 (AUGUST 31 23:30) Resp Rate 18 (SEPTEMBER 01 15:37) 14 (AUGUST 31 18:08) 20 (AUGUST 31 17:37) SBP 92 (SEPTEMBER 01 15:37) 92 (SEPTEMBER 01 15:37) 113 (AUGUST 31 17:42) DBP L 41 (SEPTEMBER 01 15:37) L 41 (SEPTEMBER 01 15:37) 69 (AUGUST 31 23:30) MAP 52 (SEPTEMBER 01 15:37) 52 (SEPTEMBER 01 15:37) 82 (AUGUST 31 18:24) SpO2 98 (SEPTEMBER 01 15:37) 94 (AUGUST 31 17:37) 99 (SEPTEMBER 01 [...] Encounter/Past 24 Hours) Creatinine Level 2.11 mg/dL HI 09/01/2018 04:39 Bun/Creatinine 15.6 09/01/2018 04:39 Estimated [...] 2: ngtd Radiology Results (Last 48 hours) [id number] -- 08/30/2018 14:25 CR Chest 1 Vw [...] suture. The catheter was then heparinized per marcellaacturer's instruction.IMPRESSION: Successful placement of a tunneled power [...] her limb. I discussed with her today documented in this encounter Plan of Treatment Not on file documented as of this encounter Visit Diagnoses Not on filedocumented in this encounter Care Teams Chief Design Engineer Relationship Specialty Start Date End Date Juan José Kendall MD [address] [place] [address] [place] [address] PCP - General Family Medicine 12/25/22 Juan José Kendall MD [address] [place] [address] [place] [address] Referring Physician Family Medicine 12/25/22 documented as of this encounter
--- OUTSIDE RECORDS SUMMARY | 2025-02-22 09:18 | XMS_ITS | Encounter Summary ---
Author Organization [employer] ([place], [place], [place], [place], [place]) Address [address] [place] [address] Care Team Providers Care Sludge Mill Operator Name Role Phone Juan José Kendall MD Primary Care Provider +- [phone] Juan José Kendall MD Unavailable [phone] Encounter Details Date Type Department Care Team (Late st Contact Info) Description 09/13/2018 Transcribed Document [facility] [place] Family Medicine [address] [place] [address] ProviderLaurie MD [address] [place] [address] Social History Tobacco Use Types Packs/Day Years [...] 17:37 EDT Pain Scale Intensity : 0 CONORENOCH LPN - 09/13/2018 17:37 EDT Image 4 - Images currently included in the form version of this document have not been included in the text rendition version of the form. documented in this encounter Plan of Treatment Not on file documented as of this encounter Visit Diagnoses Not on filedocumented in this encounter Care Teams Sludge Mill Operator Relationship Specialty Start Date End Date Juan José Kendall MD [address] [place] [facility] [address] [place] [address] PCP - General Family Medicine 12/25/22 Juan José Kendall MD [address] [facility] [address] [place] [address] Referring Physician Family Medicine 12/25/22 documented as of this encounter
--- OUTSIDE RECORDS SUMMARY | 2025-02-22 09:18 | XMS_ITS | Encounter Summary ---
Author Organization [employer] ([place], [place], [place], [place], [place]) Address [address] [place] [address] Care Team Providers Care Division Sales Manager Name Role Phone Juan José Kendall MD Primary Care Provider + [phone] Juan José Kendall MD Unavailable [phone] Encounter Details Date Type Department Care Team (Late st Contact Info) Description 09/13/2018 Transcribed Document [facility] [place] Family Medicine [address] [place] [address] ProviderLaurie MD [address] [place] [address] Social History Tobacco Use Types Packs/Day Years [...] Linh Honeycutt RN - 09/13/2018 6:33 EDT Electronically signed by Adia Fink Conversion [employer] Learning Support Teacher Cerner at 07/24/2022 3:35 PM CDT documented in this encounter Plan of Treatment Not on file documented as of this encounter Visit Diagnoses Not on filedocumented in this encounter Care Teams Division Sales Manager Relationship Specialty Start Date End Date Juan José Kendall MD [address] [place] [address] [place] [address] PCP - General Family Medicine 12/25/22 Juan José Kendall MD [address] [place] [address] [place] [address] Referring Physician Family Medicine 12/25/22 documented as of this encounter
--- OUTSIDE RECORDS SUMMARY | 2025-02-22 09:18 | XMS_ITS | Encounter Summary ---
Author Organization [employer] ([place], [place], [place], [place], [place]) Address [address] [place] [address] Care Team Providers Care Post Acute Care Registered Nurse Name Role Phone Juan José Kendall MD Primary Care Provider + [phone] Juan José Kendall MD Unavailable [phone] Encounter Details Date Type Department Care Team (Late st Contact Info) Description 09/13/2018 Transcribed Document [facility] [place] [address] [place] [address] ProviderLaurie MD [address] [place] [address] Social History Tobacco Use Types Packs/Day Years [...] on filedocumented in this encounter Care Teams Post Acute Care Registered Nurse Relationship Specialty Start Date End Date Juan José Kendall MD [address] [facility] [address] [place] [address] PCP - General Family Medicine 12/25/22 Juan José Kendall MD [address] [place] [address] Referring Physician Family Medicine 12/25/22 documented as of this encounter
--- OUTSIDE RECORDS SUMMARY | 2025-02-22 09:18 | XMS_ITS | Encounter Summary ---
Author Organization [employer] ([place], [place], [place], [place], [place]) Address [address] [place] [address] Care Team Providers Care Res Counselor Name Role Phone Juan José Kendall MD Primary Care Provider +- [phone] Juan José Kendall MD Unavailable [phone] Encounter Details Date Type Department Care Team (Late st Contact Info) Description 09/02/2018 Transcribed Document [facility] [place] [facility] [place] [facility] [place] [address] ProviderLaurie MD [address] [place] [address] Social History Tobacco Use Types Packs/Day Years Used Date Smoking Tobacco: Never Assessed Comments Unknown Sex and Gender Information Value Date Recorded Sex Assigned at Not on file Legal Sex Female 2:23 PM CDT Gender Identity Not on file Sexual Orientation Not on file documented as of this encounter Miscellaneous Notes * Cerner Conversion Note - Laurie Garcia MD - 09/02/2018 10:56 AM CDT Patient: TRUDI [...] repair. She was more recently [facility] earlier this month on [...] wound care. She was transferred to [facility] today for a higher level of care. [...] 50 m - 2 Gram, IV Piggyback, [id number], infuse over 30 Minute(s), Routine DAPTOmycin + Sodium Chloride 0.9% intravenous solution 50 mL - 700 mg, IV Piggyback, [id number], infuse over 30 Minute(s) Cardiovascular metoprolol (Lopressor) [...] 10:38) 97 (SEPTEMBER 01 18:39) 99 (SEPTEMBER 01 22:29) Gen: NAD. morbid obesity. pleasant HEENT: PERRL [...] 2: ngtd Radiology Results (Last 48 hours) [id number] -- 08/30/2018 14:25 CR Knee 1 or 2 Vws LT (08/31/2018 17:56) Result: LEFT KNEE SERIESHISTORY: Postoperative.COMPARISON: June 2018FINDINGS: A 2 view exam was obtained. Status post explantation andspacer placement. Patella also noted. Expected postoperative changes arenoted. Detail is limited from overlying cast or bandage. IMPRESSION: Postoperative changes as above. XA CVC Tunneled WO Pump/Port (09/01/2018 16:59) Result: TRUDI KAY CALEB: 1955TUNNELED CENTRAL VENOUS CATHETER PLACEMENTHISTORY: Wound infectionINDICATION: [...] discharge ( unless she is discharged to [facility] rehabilitation and she can be followed by one of my partners there). clinic to call the patient with appointment instructions. 5. Could switch the patient to OPAT through [facility] when she is discharged from rehabilitation facility. 6. attention triage staff at [facility]: Please track the patient's cultures from her left knee 7. please fax copy of this note a [phone] getting transfused by the primary team due [...] on filedocumented in this encounter Care Teams Res Counselor Relationship Specialty Start Date End Date Juan José Kendall MD 1210 [facility] [address] [place] [address] PCP - General Family Medicine 12/25/22 Juan José Kendall MD 1210 [facility] [address] [place] [address] Referring Physician Family Medicine 12/25/22 documented as of this encounter
--- OUTSIDE RECORDS SUMMARY | 2025-02-22 09:19 | XMS_ITS | Encounter Summary ---
Author Organization [employer] ([place], [place], [place], [place], [place]) Address [address] [place] [address] Care Team Providers Care Automotive Sales Professional Name Role Phone Juan José Kendall MD Primary Care Provider +- [phone] Juan José Kendall MD Unavailable [phone] Encounter Details Date Type Department Care Team (Late st Contact Info) Description 09/01/2018 Transcribed Document [facility] [place] [address] [place] [address] Laurie Garcia MD [address] [place] [address] Social History Tobacco Use Types Packs/Day Years Used Date Smoking Tobacco: Never Assessed Comments Unknown Sex and Gender Information Value Date Recorded Sex Assigned at Not on file Legal Sex Female 2:23 PM CDT Gender Identity Not on file Sexual Orientation Not on file documented as of this encounter Miscellaneous Notes * Cerner Conversion Note - Laurie Garcia MD - 09/01/2018 7:00 AM CDT Pain Assessment [...] filedocumented in this encounter Care Teams Automotive Sales Professional Relationship Specialty Start Date End Date Juan José Kendall MD 12[address] [facility] [address] [place] [address] PCP - General Family Medicine 12/25/22 Juan José Kendall MD 12[address] [facility] [address] [place] [address] Referring Physician Family Medicine 12/25/22 documented as of this encounter
--- OUTSIDE RECORDS SUMMARY | 2025-02-22 09:19 | XMS_ITS | Encounter Summary ---
Author Organization [employer] ([place], [place], [place], [place], [place]) Address [address] [place] [address] Care Team Providers Care Casino Cashier Manager Name Role Phone Juan José Kendall MD Primary Care Provider +- [phone] Juan José Kendall MD Unavailable [phone] Encounter Details Date Type Department Care Team (Late st Contact Info) Description 09/01/2018 Transcribed Document [facility] [place] [address] [place] [address] ProviderLaurie MD [address] [place] [address] Social History Tobacco Use Types Packs/Day Years Used Date Smoking Tobacco: Never Assessed Comments Unknown Sex and Gender Information Value Date Recorded Sex Assigned at Not on file Legal Sex Female 2:23 PM CDT Gender Identity Not on file Sexual Orientation Not on file documented as of this encounter Miscellaneous Notes * Cerner Conversion Note - Laurie Garcia MD - 09/01/2018 1:00 AM CDT Pain Assessment [...] on filedocumented in this encounter Care Teams Casino Cashier Manager Relationship Specialty Start Date End Date Juan José Kendall MD 1210 [facility] [address] [place] [address] PCP - General Family Medicine 12/25/22 Juan José Kendall MD [address] [facility] [address] [place] [address] Referring Physician Family Medicine 12/25/22 documented as of this encounter
--- OUTSIDE RECORDS SUMMARY | 2025-02-22 09:19 | XMS_ITS | Encounter Summary ---
Author Organization [employer] ([place], [place], [place], [place], [place]) Address [address] [place] [address] Care Team Providers Care Senior Buyer Name Role Phone Juan José Kendall MD Primary Care Provider +- [phone] Juan José Kendall MD Unavailable [phone] Encounter Details Date Type Department Care Team (Late st Contact Info) Description 09/12/2018 Transcribed Document [facility] [place] [address] [place] [address] ProviderLaurie MD [address] [place] [address] Social History Tobacco Use Types Packs/Day Years Used Date Smoking Tobacco: Never Assessed Comments Unknown Sex and Gender Information Value Date Recorded Sex Assigned at Not on file Legal Sex Female 2:23 PM CDT Gender Identity Not on file Sexual Orientation Not on file documented as of this encounter Miscellaneous Notes * Cerner Conversion Note - Laurie Garcia MD - 09/12/2018 3:00 AM CDT Pain Assessment Entered On: 09/12/2018 6:47 EDT Performed On: 09/12/2018 4:21 EDT by Linh Honeycutt RN Intervention Information: acetaminophen Performed by Linh Honeycutt RN on 09/12/2018 03:21:00 EDT acetaminophen,500mg Oral Pain Assessment Pain Assessment : Follow-up assessment Pain Scale Goal : 3 Pain Improved by Intervention : Yes Linh Honeycutt RN - 09/12/2018 6:46 EDT Electronically signed by Aleks [employer] Conversion Project Manager Entertainment [employer] Media Cerner at 07/24/2022 3:51 PM CDT documented [...]
--- OUTSIDE RECORDS SUMMARY | 2025-02-22 09:19 | XMS_ITS | Encounter Summary ---
Author Organization [employer] ([place], [place], [place], [place], [place]) Address [address] [place] [address] Care Team Providers Care Lathe Setup Operator Name Role Phone Juan José Kendall MD Primary Care Provider +- [phone] Juan José Kendall MD Unavailable [phone] Encounter Details Date Type Department Care Team (Late st Contact Info) Description 09/13/2018 Transcribed Document [facility] [place] [address] [place] [address] ProviderLaurie MD [address] [place] [address] Social History Tobacco Use Types Packs/Day Years [...] Linh Honeycutt RN - 09/13/2018 6:32 EDT Electronically signed by Aleks [facility] Conversion Architectural Designer Cerner at 07/24/2022 3:34 PM CDT documented in this encounter Plan of Treatment Not on file documented as of this encounter Visit Diagnoses Not on filedocumented in this encounter Care Teams Lathe Setup Operator Relationship Specialty Start Date End Date [...]
--- OUTSIDE RECORDS SUMMARY | 2025-02-22 09:19 | XMS_ITS | Encounter Summary ---
Author Organization [employer] ([place], [place], [place], [place], [place]) Address [address] [place] [address] Care Team Providers Care Rpg Programmer Analyst Name Role Phone Juan José Kendall MD Primary Care Provider +- [phone] Juan José Kendall MD Unavailable [phone] Encounter Details Date Type Department Care Team (Late st Contact Info) Description 09/25/2018 Transcribed Document [facility] [place] Family Medicine [address] [place] [address] ProviderLaurie MD [address] [place] [address] Social History Tobacco Use Types Packs/Day Years Used Date Smoking Tobacco: Never Assessed Comments Unknown Sex and Gender Information Value Date Recorded Sex Assigned at Not on file Legal Sex Female 2:23 PM CDT Gender Identity Not on file Sexual Orientation Not on file documented as of this encounter Miscellaneous Notes * Cerner Conversion Note - Laurie ProviderMD - 09/25/2018 3:00 PM CDT Pain [...] on filedocumented in this encounter Care Teams Rpg Programmer Analyst Relationship Specialty Start Date End Date Juan José Kendall MD 1210 [facility] [address] [place] [address] PCP - General Family Medicine 12/25/22 [place] [address] [place] [address] [address] [place] [address] Referring Physician Family Medicine 12/25/22 documented as of this encounter
--- OUTSIDE RECORDS SUMMARY | 2025-02-22 09:19 | XMS_ITS | Encounter Summary ---
Author Organization [employer] ([place], [place], [place], [place], [place]) Address [address] [place] [address] Care Team Providers Care Pizza Cook Name Role Phone Juan José Kendall MD Primary Care Provider + [phone] Juan José Kendall MD Unavailable [phone] Encounter Details Date Type Department Care Team (Late st Contact Info) Description 09/26/[address] [facility] [place] [address] [place] [address] ProviderLaurie MD [address] [place] [address] Social History Tobacco Use Types Packs/Day Years [...] Performed On: 09/26/2018 21:00 EDT by Angy Eqsueda Rn Patch Check Patch Check Result : Yes Patch Check - Type of Patch : scopolamine (Transderm-Scop) Angy Esqueda, Emeli - 09/27/2018 3:20 EDT documented in this encounter Plan of Treatment Not on file documented as of this encounter Visit Diagnoses Not on filedocumented in this encounter Care Teams Pizza Cook Relationship Specialty Start Date End Date Juan José Kendall MD [address] [place] [address] [place] [address] PCP - General Family Medicine 12/25/22 Juan José Kendall MD [address] [place] [address] [place] [address] Referring Physician Family Medicine 12/25/22 documented as of this encounter
--- OUTSIDE RECORDS SUMMARY | 2025-02-22 09:19 | XMS_ITS | Encounter Summary ---
Author Organization [employer] ([place], [place], [place], [place], [place]) Address [address] [place] [address] Care Team Providers Care Healthcare Receptionist Name Role Phone Juan José Kendall MD Primary Care Provider + [phone] Juan José Kendall MD Unavailable [phone] Encounter Details Date Type Department Care Team (Late st Contact Info) Description 09/13/2018 Transcribed Document [facility] [place] Family Medicine [address] [place] [address] ProviderLaurie MD [address] [place] [address] Social History Tobacco Use Types Packs/Day Years Used Date Smoking Tobacco: Never Assessed Comments Unknown Sex and Gender Information Value Date Recorded Sex Assigned at Not on file Legal Sex Female 2:23 PM CDT Gender Identity Not on file Sexual Orientation Not on file documented as of this encounter Miscellaneous Notes * Cerner Conversion Note - Laurie ProviderMD - 09/13/2018 3:18 PM CDT Interdisciplinary Rounds Entered On: 09/13/2018 15:18 EDT Performed On: 09/13/2018 15:18 EDT by MAMTA CHARLES RN Interdisciplinary Rounds Interdisciplinary Rounds Participants : national account manager Patient's Priority Needs : IV ABX Physical therapy Occupational therapy Wound care Notes to Care Team : Awaiting current drg MAMTA CHARLES, LISBETH - 09/13/2018 15:18 EDT documented in this encounter Plan of Treatment Not on file documented as of this encounter Visit Diagnoses Not on filedocumented in this encounter Care Teams Healthcare Receptionist Relationship Specialty Start Date End Date Juan José Kendall MD [address] [place] [address] [place] [address] PCP - General Family Medicine 12/25/22 Juan José Kendall MD [address] [place] [address] [place] [address] Referring Physician Family Medicine 12/25/22 documented as of this encounter
--- OUTSIDE RECORDS SUMMARY | 2025-02-22 09:19 | XMS_ITS | Encounter Summary ---
Author Organization [employer] ([place], [place], [place], [place], [place]) Address [address] [place] [address] Care Team Providers Care Gear Hobber Set Up Operator Name Role Phone Juan José Kendall MD Primary Care Provider + [phone] Juan José Kendall MD Unavailable [phone] Encounter Details Date Type Department Care Team (Late st Contact Info) Description 09/12/2018 Transcribed Document [facility] [place] [facility] [place] [address] ProviderLaurie MD [address] [place] [address] Social History Tobacco Use Types Packs/Day Years Used Date Smoking Tobacco: Never Assessed Comments Unknown Sex and Gender Information Value Date Recorded Sex Assigned at Not on file Legal Sex Female 2:23 PM CDT Gender Identity Not on file Sexual Orientation Not on file documented as of this encounter Miscellaneous Notes * Cerner Conversion Note - Laurie Garcia MD - 09/12/2018 11:40 AM CDT Patient: TRUDI [...] repair. She was more recently admitted to [facility] x2 earlier this month on 08/16 and [...] getting wound care. She was [place] [facility] [place] higher level of care. [...] HTN Cancer Social History: . lives in [place]. No tobacco, ETOH, or illicit drug use. Social & Psychosocial Habits Alcohol 06/23/2018 Alcohol Use History, Social Habits No Substance Abuse 06/23/2018 Recreational Drug Use History No Tobacco 06/23/2018 Smoking Status Never (less than 100 in l Smokeless Tobacco Status Never Objective: Vitals Signs (last 24 hrs) Last Charted Minimum Maximum Temp 98.1 (SEP 12:56) 97.5 (SEP 11 19:00) 98.8 (SEP 11 14:00) Apical HR 66 (SEP 12 08:52) 66 (SEP 12 08:52) 66 (SEP 12 08:52) Mon HR 66 (SEP 12 07:56) 66 (SEP 11 14:00) 80 (SEP 11 19:00) Resp Rate 18 (SEP 12 07:56) 16 (SEP 11 14:00) 18 (SEP 12 07:56) SBP 133 (SEP 12 08:52) 133 (SEP 12 07:56) 135 (SEP 11 14:00) DBP L 54 [...] 10) 7.1 (SEP 07) HB L 8.2 (SEP 10) L 8.1 (SEP 07) HCT L 26.4 (EDGARD 10) L 25.3 (SEP 07) Plt 279 (EDGARD 10) 350 (EDGARD 08) 321 (SEP 07) Na H 147 (EDGARD 10) H 147 (EDGARD 09) 145 (EDGARD 08) 146 (SEP 07) K 3.5 (EDGARD 10) L 3.3 (SEP 09) L 3.3 (SEP 08) L 3.1 (SEP 07) Cl H 114 (EDGARD 10) 112 (EDGARD 09) 111 (EDGARD 08) 110 (EDGARD 07) CO2 28 (EDGARD 10) 29 (EDGARD 09) 29 (EDGARD 08) 29 (SEP 07) BUN H 29 (EDGARD 10) H 30 (EDGARD 09) H 26 (SEP 08) H 30 (SEP 07) Cr H 1.50 (EDGARD 10) H 1.50 (EDGARD 09) H 1.60 (EDGARD 08) H 1.60 (EDGARD 07) Glu R 80 (EDGARD 10) 79 (EDGARD 09) 80 (EDGARD 08) 86 (EDGARD 07) Ca 8.4 (EDGARD 10) 8.5 (EDGARD 09) 8.5 (EDGARD 08) 9.1 (SEP 09) AST 14 (SEP 12) 11 (SEP 09) [...] stable, at least while she remains at [facility]. I will discuss with pharmacy documented in this encounter Plan of Treatment Not on file documented as of this encounter Visit Diagnoses Not on filedocumented in this encounter Care Teams Gear Hobber Set Up Operator Relationship Specialty Start Date [...]
--- OUTSIDE RECORDS SUMMARY | 2025-02-22 09:19 | XMS_ITS | Encounter Summary ---
Author Organization [employer] ([place], [place], [place], [place], [place]) Address [address] [place] [address] Care Team Providers Care Green Jobs Trainer Name Role Phone Juan José Kendall MD Primary Care Provider + [phone] Juan José Kendall MD Unavailable [phone] Encounter Details Date Type Department Care Team (Late st Contact Info) Description 09/01/2018 Transcribed Document [facility] [place] Family Medicine [address] [place] [address] ProviderLaurie MD [address] [place] [address] Social History Tobacco Use Types Packs/Day Years Used Date Smoking Tobacco: Never Assessed Comments Unknown Sex and Gender Information Value Date Recorded Sex Assigned at Not on file Legal Sex Female 2:23 PM CDT Gender Identity Not on file Sexual Orientation Not on file documented as of this encounter Miscellaneous Notes * Cerner Conversion Note - Laurie ProviderMD - 09/01/2018 2:02 PM CDT Initial Discharge Planning Entered On: 09/01/2018 14:07 EDT Performed On: 09/01/2018 14:02 EDT by Alyson Henriquez Stitching Machine Operator-Applications Project Manager Initial Assessment I Previously Documented Living Environment [...] #2 Relationship : n/a Alyson Henriquez Social Worker-Applications Project Manager - 09/01/2018 14:02 EDT Discharge Needs I Anticipated Discharge To, CM : group home facility Current Home Treatment/Equipment : Current Home Treatment/Equipment No qualifying data available. Martinez Social Marybel Shields-Applications Project Manager - 09/01/2018 14:02 EDT Discharge Needs II Professional Skilled Services : Professional Skilled Services No qualifying data available. Needs Assistance with Transportation : Maybe Discharge Options Discussed with Patient : Acute rehabilitation, Short term rehabilitation Martinez Social Marybel Shields-Applications Project Manager - 09/01/2018 14:02 EDT Narrative Note Narrative Note : 09/01 Met with pt and spouse at the bedside. Pt reports she resides with her at [address] in [place]. Pt reports she was [facility] for 15 days prior to admission at [facility]. Spouse reports they were looking for SNF while pt was in [facility]. Spouse reports pt will need short term rehab at discharge prior to returning home. Discussed preferences for SNF referral. They requested ferrals to [facility] and [facility]. Insurance requirements for SNF and precert process was discussed with pt and spouse. SNF referrals were made via [facility]. Continue to follow... Alyson Henriquez Social Worker-Applications Project Manager - 09/01/2018 14:02 EDT documented in this encounter Plan of Treatment Not on file documented as of this encounter Visit Diagnoses Not on filedocumented in this encounter Care Teams Green Jobs Trainer Relationship Specialty Start Date End Date [...]
--- OUTSIDE RECORDS SUMMARY | 2025-02-22 09:19 | XMS_ITS | Encounter Summary ---
Author Organization [employer] ([place], [place], [place], [place], [place]) Address [address] [place] [address] Care Team Providers Care Yard Foreman Name Role Phone Juan José Kendall MD Primary Care Provider + [phone] Juan José Kendall MD Unavailable [phone] Encounter Details Date Type Department Care Team (Late st Contact Info) Description 09/02/2018 Transcribed Document [facility] [place] [place] [address] [place] [address] ProviderLaurie MD [address] [place], [place] [id number] Social History Tobacco Use Types Packs/Day Years Used Date Smoking Tobacco: Never Assessed Comments Unknown Sex and Gender Information Value Date Recorded Sex Assigned at Not on file Legal Sex Female 2:23 PM CDT Gender Identity Not on file Sexual Orientation Not on file documented as of this encounter Miscellaneous Notes * Cerner Conversion Note - Historical ProviderMD - 09/02/2018 2:14 PM CDT Patient: [...] 11:17) 81 (SEPTEMBER 02 11:17) 104 (SEPTEMBER 01 22:29) Resp Rate 16 (SEPTEMBER 02 11:17) 16 [...] plan formulated and agreed. Electronically signed by Aleks, [facility] Conversion Health Screener Cerner at 07/24/2022 3:31 PM CDT documented in this encounter Plan of Treatment Not on file documented as of this encounter Visit Diagnoses Not on filedocumented in this encounter Care Teams Yard Foreman Relationship Specialty Start Date End Date Juan José Kendall MD [address] [facility] [address] [place] [address] PCP - General Family Medicine 12/25/22 Juan José Kendall MD [address] [facility] [address] [place] [address] Referring Physician Family Medicine 12/25/22 documented as of this encounter
--- OUTSIDE RECORDS SUMMARY | 2025-02-22 09:19 | XMS_ITS | Encounter Summary ---
Author Organization [employer] ([place], [place], [place], [place], [place]) Address [address] [place] [address] Care Team Providers Care Medical Writer Name Role Phone Juan José Kendall MD Primary Care Provider +- [phone] Juan José Kendall MD Unavailable [phone] Encounter Details Date Type Department Care Team (Late st Contact Info) Description 09/13/2018 Transcribed Document [facility] [place] [address] [place] [address] ProviderLaurie MD [address] [place] [address] Social History Tobacco Use Types Packs/Day Years Used Date Smoking Tobacco: Never Assessed Comments Unknown Sex and Gender Information Value Date Recorded Sex Assigned at Not on file Legal Sex Female 2:23 PM CDT Gender Identity Not on file Sexual Orientation Not on file documented as of this encounter Miscellaneous Notes * Cerner Conversion Note - Laurie ProviderMD - 09/13/2018 9:00 AM CDT Pain Assessment Entered On: 09/13/2018 10:21 EDT Performed On: 09/13/2018 10:07 EDT by ENOCH PERDOMO LPN Intervention Information: acetaminophen Performed by ENOCH PERDOMO LPN on 09/13/2018 09:07:00 EDT acetaminophen,500mg Oral Pain Assessment Pain Assessment : Follow-up assessment Pain Scale Goal : 3 Pain Scale Used : 0-10 Scale Location : Leg, left ENOCH PERDOMO LPN - 09/13/2018 10:21 EDT Pain Scale [...] filedocumented in this encounter Care Teams Medical Writer Relationship Specialty Start Date End Date Juan José Kendall MD [address] [facility] [address] [place] [address] PCP - General Family Medicine 12/25/22 Juan José Kendall MD [address] [facility] [address] [place] [address] Referring Physician Family Medicine 12/25/22 documented as of this encounter
--- OUTSIDE RECORDS SUMMARY | 2025-02-22 09:19 | XMS_ITS | Encounter Summary ---
Author Organization [employer] ([place], [place], [place], [place], [place]) Address [address] [place] [address] Care Team Providers Care Magazine Publisher Name Role Phone Juan José Kendall MD Primary Care Provider + [phone] Juan José Kendall MD Unavailable [phone] Encounter Details Date Type Department Care Team (Late st Contact Info) Description 09/01/2018 Transcribed Document [facility] [place] Family Medicine [address] [place] [address] ProviderLaurie MD [address] [place] [address] Social History Tobacco Use Types Packs/Day Years Used Date Smoking Tobacco: Never Assessed Comments Unknown Sex and Gender Information Value Date Recorded Sex Assigned at Not on file Legal Sex Female 2:23 PM CDT Gender Identity Not on file Sexual Orientation Not on file documented as of this encounter Miscellaneous Notes * Cerner Conversion Note - Laurie ProviderMD - 09/01/2018 5:00 PM CDT Chart Check - Review Order Profile Entered On: 09/01/2018 18:35 EDT Performed On: 09/01/2018 17:00 EDT by Jennifer Arndt Registered Nurse Chart Check Powerplans Initiated/Discontinued as Appropriate : Yes All Active Orders Reviewed : Yes Jennifer Arndt, Registered Nurse - 09/01/2018 18:35 EDT documented in this encounter Plan of Treatment Not on file documented as of this encounter Visit Diagnoses Not on filedocumented in this encounter Care Teams Magazine Publisher Relationship Specialty Start Date End Date Juan José Kendall MD [address] [place] [address] PCP - General Family Medicine 12/25/22 Juan José Kendall MD [address] [place] [address] [place] [address] Referring Physician Family Medicine 12/25/22 documented as of this encounter
--- OUTSIDE RECORDS SUMMARY | 2025-02-22 09:19 | XMS_ITS | Encounter Summary ---
Author Organization [employer] ([place], [place], [place], [place], [place]) Address [address] [place] [address] Care Team Providers Care Machinist Name Role Phone Juan José Kendall MD Primary Care Provider +- [phone] Juan José Kendall MD Unavailable [phone] Encounter Details Date Type Department Care Team (Late st Contact Info) Description 09/01/2018 Transcribed Document [facility] [place] [address] [place] [address] ProviderLaurie MD [address] [place] [address] Social History Tobacco Use Types Packs/Day Years Used Date Smoking Tobacco: Never Assessed Comments Unknown Sex and Gender Information Value Date Recorded Sex Assigned at Not on file Legal Sex Female 2:23 PM CDT Gender Identity Not on file Sexual Orientation Not on file documented as of this encounter Miscellaneous Notes * Cerner Conversion Note - Laurie Garcia MD - 09/01/2018 2:34 PM CDT Patient: TRUDI BLAIR Age: 63 years Sex: Female : 1955 Associated Diagnoses: None Author: KIMBERLY CANTU MD-RAD Pre-OP/Procedure Diagnosis: _Foot infection Post-OP/Procedure Diagnosis: Need for mcc access Procedure Performed: Tunnelled central venous catheter placement Procedural MD: [employer] Servicer: None Sedation: 2 m gVersed and 50 micrograms of Fentanyl IV Findings: Successful right IJ tunnelled dual lumen Power Dumont catheter placement Complications: None EBL: Min Specimen(s) Removed: None Full report to follow. documented in this encounter Plan of Treatment Not on file documented as of this encounter Visit Diagnoses Not on filedocumented in this encounter Care Teams Machinist Relationship Specialty Start Date End Date Juan José Kendall MD [address] [facility] [address] [place] [address] PCP - General Family Medicine 12/25/22 Juan José Kendall MD [address] [facility] [address] [place] [address] Referring Physician Family Medicine 12/25/22 documented as of this encounter
--- OUTSIDE RECORDS SUMMARY | 2025-02-22 09:20 | XMS_ITS | Encounter Summary ---
Author Organization [employer] ([place], [place], [place], [place], [place]) Address [address] [place] [address] Care Team Providers Care Gate Agent Name Role Phone Juan José Kendall MD Primary Care Provider +- [phone] Juan José Kendall MD Unavailable [phone] Encounter Details Date Type Department Care Team (Late st Contact Info) Description 09/12/2018 Transcribed Document [facility] [place] [address] [place] [address] ProviderLaurie MD [address] [place] [address] Social History Tobacco Use Types Packs/Day Years Used Date Smoking Tobacco: Never Assessed Comments Unknown Sex and Gender Information Value Date Recorded Sex Assigned at Not on file Legal Sex Female 2:23 PM CDT Gender Identity Not on file Sexual Orientation Not on file documented as of this encounter Miscellaneous Notes * Cerner Conversion Note - Laurie ProviderMD - 09/12/2018 9:00 AM CDT Pain [...] filedocumented in this encounter Care Teams Gate Agent Relationship Specialty Start Date End Date Juan José Kendall MD [address] [place] [facility] [address] [place] [address] PCP - General Family Medicine 12/25/22 Juan José Kendall MD [address] [place] [facility] [address] [place] [address] Referring Physician Family Medicine 12/25/22 documented as of this encounter
--- OUTSIDE RECORDS SUMMARY | 2025-02-22 09:20 | XMS_ITS | Encounter Summary ---
Author Organization [employer] ([place], [place], [place], [place], [place]) Address [address] [place] [address] Care Team Providers Care Plasterer Tender Name Role Phone Juan José Kendall MD Primary Care Provider +- [phone] Juan José Kendall MD Unavailable [phone] Encounter Details Date Type Department Care Team (Late st Contact Info) Description 09/01/2018 Transcribed Document [facility] [place] [address] [place] [address] ProviderLaurie MD [address] [place], [place] [address] Social History Tobacco Use Types Packs/Day Years Used Date Smoking Tobacco: Never Assessed Comments Unknown Sex and Gender Information Value Date Recorded Sex Assigned at Not on file Legal Sex Female 2:23 PM CDT Gender Identity Not on file Sexual Orientation Not on file documented as of this encounter Miscellaneous Notes * Cerner Conversion Note - Laurie Garcia MD - 09/01/2018 8:31 AM CDT Patient: TRUDI BLAIR Age: 63 years Sex: Female : 1955 Associated Diagnoses: None Author: LINDA MARQUEZ MD-NEP Subjective No new complaints Objective VS/Measurements Vitals Signs (last 24 hrs) Last Charted Minimum Maximum Temp 97.9 (SEPTEMBER 01 06:52) 97.0 (AUGUST 31 18:00) 98.4 (AUGUST 31:30) Apical HR L 51 (AUGUST 31 13:50) [...] intially elevated to 2.4 on admit from [facility] 0.9 06/2018. pt with multiple [...] risk and complexity pt Electronically signed by Aleks, [employer] Conversion Tool Turret Lathe Set Up Operator Cerner at 07/24/2022 3:41 PM CDT documented in this encounter Plan of Treatment Not on file documented as of this encounter Visit Diagnoses Not on filedocumented in this encounter Care Teams Plasterer Tender Relationship Specialty Start Date End Date Juan José Kendall MD [address] [facility] [address] [place] [address] PCP - General Family Medicine 12/25/22 Juan José Kendall MD [address] [facility] [address] [place] [phone] Referring Physician Family Medicine 12/25/22 documented as of this encounter
--- OUTSIDE RECORDS SUMMARY | 2025-02-22 09:20 | XMS_ITS | Encounter Summary ---
Author Organization [employer] ([place], [place], [place], [place], [place]) Address [address] [place] [address] Care Team Providers Care Child Welfare Worker Name Role Phone Juan José Kendall MD Primary Care Provider + [phone] Juan José Kendall MD Unavailable [phone] Encounter Details Date Type Department Care Team (Late st Contact Info) Description 09/01/2018 Transcribed Document [facility] [place] [facility] [place] [address] Laurie Garcia MD [address] [place] [address] Social History Tobacco Use Types Packs/Day Years Used Date Smoking Tobacco: Never Assessed Comments Unknown Sex and Gender Information Value Date Recorded Sex Assigned at Not on file Legal Sex Female 2:23 PM CDT Gender Identity Not on file Sexual Orientation Not on file documented as of this encounter Miscellaneous Notes * Cerner Conversion Note - Laurie Garcia MD - 09/01/2018 7:08 PM CDT Patient: TRUDI [...] 0.9% 50 mL 2 Gram, IV Piggyback, [id number] DAPTOmycin + NaCl 0.9% 50 mL 700 mg 14 mL, IV Piggyback, H25OXki docusate sodium 100 mg cap 100 mg [...] 9.0 % LOW Lymph # 1.21 K/uL [place] % 5.2 % [place] # 0.69 K/uL Eos % 0.0 % [...] Urine Random 60 mg/dL NA Protein Ur Rowley 209 mg/dL NA Sodium Ur Rowley 48 mMole/Liter NA Urea Nitrogen Urine Random [...] 19.8 % Lymph # 1.05 K/uL LOW [place] % 7.8 % [place] # 0.41 K/uL Eos % 10.4 % [...] filedocumented in this encounter Care Teams Child Welfare Worker Relationship Specialty Start Date End Date Juan oJsé Kendall MD [address] [place] [facility] [address] [place] [address] PCP - General Family Medicine 12/25/22 Juan José Kendall MD [address] [place] [address] [place] [phone] Referring Physician Family Medicine 12/25/22 documented as of this encounter
--- OUTSIDE RECORDS SUMMARY | 2025-02-22 09:20 | XMS_ITS | Encounter Summary ---
Author Organization [employer] ([place], [place], [place], [place], [place]) Address [address] [place] [address] Care Team Providers Care Lpn Medical Assistant Name Role Phone Juan José Kendall MD Primary Care Provider +- [phone] Juan José Kendall MD Unavailable [phone] Encounter Details Date Type Department Care Team (Late st Contact Info) Description 09/24/2018 Transcribed Document [facility] [place] Family Medicine [address] [place] [address] ProviderLaurie MD [address] [place] [address] Social History Tobacco Use Types Packs/Day Years Used Date Smoking Tobacco: Never Assessed Comments Unknown Sex and Gender Information Value Date Recorded Sex Assigned at Not on file Legal Sex Female 2:23 PM CDT Gender Identity Not on file Sexual Orientation Not on file documented as of this encounter Miscellaneous Notes * Cerner Conversion Note - Laurie ProviderMD - 09/24/2018 9:00 AM CDT Pain [...] Pain Scale Intensity : 0 ENOCH PERDOMO R, WAREHOUSE PERSON - 09/24/2018 12:39 EDT Image 4 - Images currently included in the form version of this document have not been included in the text rendition version of the form. documented in this encounter Plan of Treatment Not on file documented as of this encounter Visit Diagnoses Not on filedocumented in this encounter Care Teams Lpn Medical Assistant Relationship Specialty Start Date End Date Juan José Kendall MD [address] [facility] [address] [facility] [place] [address] PCP - General Family Medicine 12/25/22 Juan José Kendall MD [address] [facility] [address] [place] [address] Referring Physician Family Medicine 12/25/22 documented as of this encounter
--- OUTSIDE RECORDS SUMMARY | 2025-02-22 09:20 | XMS_ITS | Encounter Summary ---
Author Organization [employer] ([place], [place], [place], [place], [place]) Address [address] [place] [address] Care Team Providers Care Production Potter Name Role Phone Juan José Kendall MD Primary Care Provider +- [phone] Juan José Kendall MD Unavailable [phone] Encounter Details Date Type Department Care Team (Late st Contact Info) Description 09/12/2018 Transcribed Document [facility] [place] [address] [place] [address] Laurie Garcia MD [address] [place] [address] Social History Tobacco Use Types Packs/Day Years [...] Garcia MD - 09/12/2018 10:34 AM CDT [facility] Inpatient Documentation Entered On: 09/12/2018 10:45 EDT Performed On: 09/12/2018 10:34 EDT by ALEX FREY RN WO Admission [...] Ulcer WOCN Wound Pressure Ulcer Documentation : Vummbxgiy-Rnlbwm-Wous Abnormality: Knee Left Midline on 09/12/2018 10:28 [...] - 09/12/2018 10:34 EDT Electronically signed by [facility] Conversion Census Clerk Cerner at 07/24/2022 3:51 PM CDT documented in this encounter Plan of Treatment Not on file documented as of this encounter Visit Diagnoses Not on filedocumented in this encounter Care Teams Production Potter Relationship Specialty Start Date End Date Juan José Kendall MD [address] [facility] [address] [place] [phone] PCP - General Family Medicine 12/25/22 Juan José Kendall MD [address] [facility] [address] [place] [phone] Referring Physician Family Medicine 12/25/22 documented as of this encounter
--- OUTSIDE RECORDS SUMMARY | 2025-02-22 09:20 | XMS_ITS | Encounter Summary ---
Author Organization [employer] ([place], [place], [place], [place], [place]) Address [address] [place] [address] Care Team Providers Care Boots And Shoes Supervisor Name Role Phone Juan José Kendall MD Primary Care Provider +- [phone] Juan José eKndall MD Unavailable [phone] Encounter Details Date Type Department Care Team (Late st Contact Info) Description 09/25/2018 Transcribed Document [facility] [place] [address] [place] [address] ProviderLaurie MD [address] [place] [address] Social History Tobacco Use Types Packs/Day Years Used Date Smoking Tobacco: Never Assessed Comments Unknown Sex and Gender Information Value Date Recorded Sex Assigned at Not on file Legal Sex Female 2:23 PM CDT Gender Identity Not on file Sexual Orientation Not on file documented as of this encounter Miscellaneous Notes * Cerner Conversion Note - Laurie ProviderMD - 09/25/2018 9:00 AM CDT Pain [...] on filedocumented in this encounter Care Teams Boots And Shoes Supervisor Relationship Specialty Start Date End Date Juan José Kendall MD [address] [facility] [address] [place] [phone] PCP - General Family Medicine 12/25/22 [place] [address] [place] [address] [address] [place] [phone] Referring Physician Family Medicine 12/25/22 documented as of this encounter
--- OUTSIDE RECORDS SUMMARY | 2025-02-22 09:20 | XMS_ITS | Encounter Summary ---
Author Organization [employer] ([place], [place], [place], [place], [place]) Address [address] [place] [address] Care Team Providers Care Director Of Extension Work Name Role Phone Juan José Kendall MD Primary Care Provider + [phone] Juan José Kendall MD Unavailable [phone] Encounter Details Date Type Department Care Team (Late st Contact Info) Description 09/01/[address] [facility] [place] Family Medicine [address] [place] [address] Laurie Garcia MD [address] [place] [address] Social History Tobacco Use Types Packs/Day Years Used Date Smoking Tobacco: Never Assessed Comments Unknown Sex and Gender Information Value Date Recorded Sex Assigned at Not on file Legal Sex Female 2:23 PM CDT Gender Identity Not on file Sexual Orientation Not on file documented as of this encounter Miscellaneous Notes * Cerner Conversion Note - Laurie Garcia MD - 09/01/2018 12:12 PM CDT Patient: TRUDI BLAIR Age: 63 years Sex: Female : 1955 Associated Diagnoses: None Author: CHIQUIS HICKS, [facility] verified patient's allergies and home medication list with the patient and pharmacy records and are below. Patient and family state she was taken off baclofen, celebrex, gabapentin and oxybutynin at [facility] due to kidney dysfunction. Patient wasn't sure [...] Allergies (1) Active Reaction Biaxin Acid reflux Thanks, Chiquis Hicks, SriniD, MPH, BCPS Electronically signed by Aleks [facility] Conversion Job Specification Writer Cerner at 07/24/2022 3:51 PM CDT documented in this encounter Plan of Treatment Not on file documented as of this encounter Visit Diagnoses Not on filedocumented in this encounter Care Teams Director Of Extension Work Relationship Specialty Start Date End Date Juan José Kendall MD [address] [place] [place] [address] PCP - General Family Medicine 12/25/22 Juan José Kendall MD [address] [place] [facility] [address] [place] [phone] Referring Physician Family Medicine 12/25/22 documented as of this encounter
--- OUTSIDE RECORDS SUMMARY | 2025-02-22 09:20 | XMS_ITS | Encounter Summary ---
Author Organization [employer] ([place], [place], [place], [place], [place]) Address [address] [place] [address] Care Team Providers Care Sprayer Machine Name Role Phone Juan José Kendall MD Primary Care Provider + [phone] Juan José Kendall MD Unavailable [phone] Encounter Details Date Type Department Care Team (Late st Contact Info) Description 09/24/2018 Transcribed Document [facility] [place] Family Medicine [address] [place] [address] Laurie Garcia MD [address] [place] [address] Social History Tobacco Use Types Packs/Day Years [...] inj 4 mg 2 mL, IV Push, [id number] pantoprazole EC 40 mg tab 40 mg [...] on filedocumented in this encounter Care Teams Sprayer Machine Relationship Specialty Start Date End Date Juan José Kendall MD [address] [place] [facility] [address] [place] [address] PCP - General Family Medicine 12/25/22 Juan José Kendall MD [address] [facility] [address] [place] [address] Referring Physician Family Medicine 12/25/22 documented as of this encounter
--- OUTSIDE RECORDS SUMMARY | 2025-02-22 09:20 | XMS_ITS | Encounter Summary ---
Author Organization [employer] ([place], [place], [place], [place], [place]) Address [address] [place] [address] Care Team Providers Care Cage Fighter Name Role Phone Juan José Kendall MD Primary Care Provider + [phone] Juan José Kendall MD Unavailable [phone] Encounter Details Date Type Department Care Team (Late st Contact Info) Description 09/25/2018 Transcribed Document [facility] [place] [address] [place] [address] ProviderLaurie MD [address] [place] [address] Social History Tobacco Use Types Packs/Day Years [...] on filedocumented in this encounter Care Teams Cage Fighter Relationship Specialty Start Date End Date Juan José Kendall MD [address] [place] [phone] PCP - General Family Medicine 12/25/22 Juan José Kendall MD [address] [place] [phone] Referring Physician Family Medicine 12/25/22 documented as of this encounter
--- OUTSIDE RECORDS SUMMARY | 2025-02-22 09:20 | XMS_ITS | Encounter Summary ---
Author Organization [employer] ([place], [place], [place], [place], [place]) Address [address] [place] [address] Care Team Providers Care President Consumer Electronics Company Name Role Phone Juan José Kendall MD Primary Care Provider + [phone] Juan José Kendall MD Unavailable [phone] Encounter Details Date Type Department Care Team (Late st Contact Info) Description 09/12/2018 Transcribed Document [facility] [place] Medicine [address] [place] [address] ProviderLaurie MD [address] [place] [address] Social History Tobacco Use Types Packs/Day Years [...] Performed On: 09/12/2018 17:00 EDT by ENOCH EPRDOMO LPN Chart Check Powerplans Initiated/Discontinued as Appropriate : Yes All Active Orders Reviewed : Yes ENOCH PERDOMO LPN - 09/13/2018 10:19 EDT documented in this encounter Plan of Treatment Not on file documented as of this encounter Visit Diagnoses Not on filedocumented in this encounter Care Teams President Consumer Electronics Company Relationship Specialty Start Date End Date Juan José Kendall MD [address] [place] [facility] [address] [place] [phone] PCP - General Family Medicine 12/25/22 Juan José Kendall MD [address] [place] [address] [place] [phone] Referring Physician Family Medicine 12/25/22 documented as of this encounter
--- OUTSIDE RECORDS SUMMARY | 2025-02-22 09:20 | XMS_ITS | Encounter Summary ---
Author Organization [employer] ([place], [place], [place], [place], [place]) Address [address] [place] [address] Care Team Providers Care Bar Host/Hostess Name Role Phone Juan José Kendall MD Primary Care Provider + [phone] Juan José Kendall MD Unavailable [phone] Encounter Details Date Type Department Care Team (Late st Contact Info) Description 09/12/2018 Transcribed Document [place] Family Medicine [address] [place] [address] ProviderLaurie MD [address] [place] [address] Social History Tobacco Use Types Packs/Day Years [...] Linh Honeycutt RN - 09/13/2018 2:28 EDT Electronically signed by Aleks [facility] Conversion Feather Shaper Cerner at 07/24/2022 3:48 PM CDT documented in this encounter Plan of Treatment Not on file documented as of this encounter Visit Diagnoses Not on filedocumented in this encounter Care Teams Bar Host/Hostess Relationship Specialty Start Date End Date Juan José Kendall MD [address] [place] [facility] [address] [place] [phone] PCP - General Family Medicine 12/25/22 Juan José Kendall MD [address] [place] [facility] [address] [place] [address] Referring Physician Family Medicine 12/25/22 documented as of this encounter
--- OUTSIDE RECORDS SUMMARY | 2025-02-22 09:20 | XMS_ITS | Encounter Summary ---
Author Organization [employer] ([place], [place], [place], [place], [place]) Address [address] [place] [address] Care Team Providers Care Research Program Manager Name Role Phone Juan José Kendall MD Primary Care Provider + [phone] Juan José Kendall MD Unavailable [phone] Encounter Details Date Type Department Care Team (Late st Contact Info) Description 09/01/2018 Transcribed Document [facility] Family Medicine [address] [place] [address] ProviderLaurie MD [address] [place], [place] [id number] Social History Tobacco Use Types Packs/Day Years Used Date Smoking Tobacco: Never Assessed Comments Unknown Sex and Gender Information Value Date Recorded Sex Assigned at Not on file Legal Sex Female 2:23 PM CDT Gender Identity Not on file Sexual Orientation Not on file documented as of this encounter Miscellaneous Notes * Cerner Conversion Note - Laurie ProviderMD - 09/01/2018 5:00 AM CDT Chart [...] filedocumented in this encounter Care Teams Research Program Manager Relationship Specialty Start Date End Date Juan José Kendall MD [address] [place] [address] [place] [phone] PCP - General Family Medicine 12/25/22 Juan José Kendall MD [address] [place] [address] [place] [phone] Referring Physician Family Medicine 12/25/22 documented as of this encounter
--- OUTSIDE RECORDS SUMMARY | 2025-02-22 09:20 | XMS_ITS | Encounter Summary ---
Author Organization [employer] ([place], [place], [place], [place], [place]) Address [address] [place] [address] Care Team Providers Care Produce Field Merchandiser Name Role Phone Juan José Kendall MD Primary Care Provider +- [phone] Juan José Kendall MD Unavailable [phone] Encounter Details Date Type Department Care Team (Late st Contact Info) Description 09/24/2018 Transcribed Document [facility] [place] [address] [place] [address] ProviderLaurie MD [address] [place] [address] Social History Tobacco Use Types Packs/Day Years Used Date Smoking Tobacco: Never Assessed Comments Unknown Sex and Gender Information Value Date Recorded Sex Assigned at Not on file Legal Sex Female 2:23 PM CDT Gender Identity Not on file Sexual Orientation Not on file documented as of this encounter Miscellaneous Notes * Cerner Conversion Note - Laurie Garcia MD - 09/24/2018 8:12 AM CDT Patient: TRUDI [...] ID. Rx to follow, Ruby Story, PharmD [phone] [facility] Conversion Military Cook Cerner at 07/24/2022 3:43 PM CDT documented in this encounter Plan of Treatment Not on file documented as of this encounter Visit Diagnoses Not on filedocumented in this encounter Care Teams Produce Field Merchandiser Relationship Specialty Start Date End Date Juan José Kendall MD [address] [facility] [address] [place] [phone] PCP - General Family Medicine 12/25/22 Juan José Kendall MD [address] [facility] [address] [place] [phone] Referring Physician Family Medicine 12/25/22 documented as of this encounter
--- OUTSIDE RECORDS SUMMARY | 2025-02-22 09:21 | XMS_ITS | Encounter Summary ---
Author Organization [employer] ([place], [place], [place], [place], [place]) Address [address] [place] [address] Care Team Providers Care Pit Steward Name Role Phone Juan José Kendall MD Primary Care Provider + [phone] Juan José Kendall MD Unavailable [phone] Encounter Details Date Type Department Care Team (Late st Contact Info) Description 09/25/2018 Transcribed Document [facility] [place] Family Medicine [address] [place] [address] ProviderLaurie MD [address] [place] [address] Social History Tobacco Use Types Packs/Day Years [...] : scopolamine (Transderm-Scop) Angy Esqueda, Emeli - 09/26/2018 4:00 EDT documented in this encounter Plan of Treatment Not on file documented as of this encounter Visit Diagnoses Not on filedocumented in this encounter Care Teams Pit Steward Relationship Specialty Start Date End Date Juan José Kendall MD [address] [place] [address] PCP - General Family Medicine 12/25/22 Juan José Kendall MD [address] [place] [address] [place] [address] Referring Physician Family Medicine 12/25/22 documented as of this encounter
--- OUTSIDE RECORDS SUMMARY | 2025-02-22 09:21 | XMS_ITS | Encounter Summary ---
Author Organization [employer] ([place], [place], [place], [place], [place]) Address [address] [place] [address] Care Team Providers Care Business Intelligence Director Name Role Phone Juan José Kendall MD Primary Care Provider +- [phone] Juan José Kendall MD Unavailable [phone] Encounter Details Date Type Department Care Team (Late st Contact Info) Description 09/12/2018 Transcribed Document [facility] [place] Family Medicine [address] [place] [address] ProviderLaurie MD [address] [place] [address] Social History Tobacco Use Types Packs/Day Years Used Date Smoking Tobacco: Never Assessed Comments Unknown Sex and Gender Information Value Date Recorded Sex Assigned at Not on file Legal Sex Female 2:23 PM CDT Gender Identity Not on file Sexual Orientation Not on file documented as of this encounter Miscellaneous Notes * Cerner Conversion Note - Laurie Garcia MD - 09/12/2018 9:00 PM CDT Pain Assessment [...] 09/13/2018 2:28 EDT Electronically signed by Aleks [facility] Conversion Blanking Press Operator Cerner at 07/24/2022 3:50 PM CDT documented in this encounter Plan of Treatment Not on file documented as of this encounter Visit Diagnoses Not on filedocumented in this encounter Care Teams Business Intelligence Director Relationship Specialty Start Date End Date Juan José Kendall MD [address] [facility] [address] [place] [address] PCP - General Family Medicine 12/25/22 Juan José Kendall MD [address] [facility] [address] [place] [address] Referring Physician Family Medicine 12/25/22 documented as of this encounter
--- OUTSIDE RECORDS SUMMARY | 2025-02-22 09:21 | XMS_ITS | Encounter Summary ---
Author Organization [employer] ([place], [place], [place], [place], [place]) Address [address] [place] [address] Care Team Providers Care Buckle Attaching Machine Operator Name Role Phone Juan José Kendall MD Primary Care Provider +- [phone] Juan José Kendall MD Unavailable [phone] Encounter Details Date Type Department Care Team (Late st Contact Info) Description 09/01/2018 Transcribed Document [facility] [place] Family Medicine [address] [place] [address] Laurie Garcia MD [address] [place] [address] Social History Tobacco Use Types Packs/Day Years Used Date Smoking Tobacco: Never Assessed Comments Unknown Sex and Gender Information Value Date Recorded Sex Assigned at Not on file Legal Sex Female 2:23 PM CDT Gender Identity Not on file Sexual Orientation Not on file documented as of this encounter Miscellaneous Notes * Cerner Conversion Note - Laurie Garcia MD - 09/01/2018 3:02 PM CDT On Going Discharge Planning Entered On: 09/01/2018 15:03 EDT Performed On: 09/01/2018 15:02 EDT by Alyson Henriquez Mobile Engineer-Helper Teacher Care Management Progress Note Discharge Arrangements : Patient Post-Acute Information Patient Name: TRUDI BLAIR Gender: Female : [birth year] Age: 63 Years No Post-Acute Placement(s) Listed No Post-Acute Service(s) Listed No [place] Referral(s) Listed Discharge Options Discussed with Patient : Acute rehabilitation, Short term rehabilitation Were Referrals Sent to Post Acute Providers : Yes Alyson Henriquez Social Worker-Helper Teacher - 09/01/2018 15:02 EDT Narrative Progress Note Narrative Progress Note : 09/01 Received call from home health outreach coordinator at [facility]. She reports they do not have any available beds at this time. Alyson Henriquez Social Worker-Helper Teacher - 09/01/2018 15:02 EDT documented in this encounter Plan of Treatment Not on file documented as of this encounter Visit Diagnoses Not on filedocumented in this encounter Care Teams Buckle Attaching Machine Operator Relationship Specialty Start Date End Date Juan José Kendall MD [address] [facility] [address] [place] [id number] PCP - General Family Medicine 12/25/22 Juan José Kendall MD [address] [facility] [address] [place] [address] Referring Physician Family Medicine 12/25/22 documented as of this encounter
--- OUTSIDE RECORDS SUMMARY | 2025-02-22 09:21 | XMS_ITS | Encounter Summary ---
Author Organization [employer] ([place], [place], [place], [place], [place]) Address [address] [place] [address] Care Team Providers Care Calibration Checker Name Role Phone uJan José Kendall MD Primary Care Provider +- [phone] Juan José Kendall MD Unavailable [phone] Encounter Details Date Type Department Care Team (Late st Contact Info) Description 09/25/2018 Transcribed Document [facility] [place] Family Medicine [address] [place] [address] ProviderLaurie MD [address] [place] [address] Social History Tobacco Use Types Packs/Day Years [...] EDT Pain Scale Intensity : 4 Angy Esqueda, Emeli - 09/26/2018 4:00 EDT Image 4 - Images currently included in the form version of this document have not been included in the text rendition version of the form. documented in this encounter Plan of Treatment Not on file documented as of this encounter Visit Diagnoses Not on filedocumented in this encounter Care Teams Calibration Checker Relationship Specialty Start [place] [address] [place] [address] [address] [place] [id number] PCP - General Family Medicine 12/25/22 Juan José Kendall MD [address] [facility] [address] [place] [id number] Referring Physician Family Medicine 12/25/22 documented as of this encounter
--- OUTSIDE RECORDS SUMMARY | 2025-02-22 09:21 | XMS_ITS | Encounter Summary ---
Author Organization [employer] ([place], [place], [place], [place], [place]) Address [address] [place] [address] Care Team Providers Care Program Schedule Clerk Name Role Phone Juan José Kendall MD Primary Care Provider + [phone] Juan José Kendall MD Unavailable [phone] Encounter Details Date Type Department Care Team (Late st Contact Info) Description 09/25/2018 Transcribed Document [facility] [place] Family Medicine [facility] [address] Laurie Garcia MD [address] [place] [address] Social History Tobacco Use Types Packs/Day Years [...] inj 4 mg 2 mL, IV Push, [id number] pantoprazole EC 40 mg tab 40 mg [...] on filedocumented in this encounter Care Teams Program Schedule Clerk Relationship Specialty Start Date End Date Juan José Kendall MD 12[address] [facility] [address] [place] [id number] PCP - General Family Medicine 12/25/22 [place] [address] [place] [address] [address] [place] [phone] Referring Physician Family Medicine 12/25/22 documented as of this encounter
--- OUTSIDE RECORDS SUMMARY | 2025-02-22 09:21 | XMS_ITS | Encounter Summary ---
Author Organization [employer] ([place], [place], [place], [place], [place]) Address [address] [place] [address] Care Team Providers Care Forest Management Teacher Name Role Phone Juan José Kendall MD Primary Care Provider + [phone] Juan José Kendall MD Unavailable [phone] Encounter Details Date Type Department Care Team (Late st Contact Info) Description 09/12/2018 Transcribed Document [facility] [place] Family Medicine [address] [place] [address] ProviderLaurie MD [address] [place] [address] Social History Tobacco Use Types Packs/Day Years [...] ENOCH PERDOMO LPN - 09/13/2018 10:19 EDT Electronically signed by Aleks [facility] Conversion Exchange Trouble Shooter Cerner at 07/24/2022 3:46 PM CDT documented in this encounter Plan of Treatment Not on file documented as of this encounter Visit Diagnoses Not on filedocumented in this encounter Care Teams Forest Management Teacher Relationship Specialty Start Date End Date Juan José Kendall MD [address] [place] [id number] PCP - General Family Medicine 12/25/22 Juan José Kendall MD [address] [place] [phone] Referring Physician Family Medicine 12/25/22 documented as of this encounter
--- OUTSIDE RECORDS SUMMARY | 2025-02-22 09:21 | XMS_ITS | Encounter Summary ---
Author Organization [employer] ([place], [place], [place], [place], [place]) Address [address] [place] [address] Care Team Providers Care Apron Operator Name Role Phone Juan José Kendall MD Primary Care Provider +- [phone] Juan José Kendall MD Unavailable [phone] Encounter Details Date Type Department Care Team (Late st Contact Info) Description 09/01/2018 Transcribed Document [facility] [place] Family Medicine [address] [place] [address] Laurie Garcia MD [address] [place] [address] Social History Tobacco Use Types Packs/Day Years Used Date Smoking Tobacco: Never Assessed Comments Unknown Sex and Gender Information Value Date Recorded Sex Assigned at Not on file Legal Sex Female 2:23 PM CDT Gender Identity Not on file Sexual Orientation Not on file documented as of this encounter Miscellaneous Notes * Cerner Conversion Note - Laurie ProviderMD - 09/01/2018 7:20 PM CDT Spiritual Care Short Form Entered On: 09/01/2018 19:50 EDT Performed On: 09/01/2018 19:20 EDT by EDUARDO SCHULER Chaplain-Non Cert General Information, Spiritual Care Spiritual Care Referred by : Middle School Combination Teacher initiated Reason for Visit : Initial Ministry Provided to : Patient Intervention/Comment/Summary Points : Provided empathetic listening. Moravian Preference : [employer] EDUARDO SCHULER Chaplain-Non Cert - 09/01/2018 19:49 EDT documented in this encounter Plan of Treatment Not on file documented as of this encounter Visit Diagnoses Not on filedocumented in this encounter Care Teams Apron Operator Relationship Specialty Start Date End Date Juan José Kendall MD 12[address] [facility] [address] [place] [address] PCP - General Family Medicine 12/25/22 Juan José Kendall MD [address] [facility] [address] [place] [address] Referring Physician Family Medicine 12/25/22 documented as of this encounter
--- OUTSIDE RECORDS SUMMARY | 2025-02-22 09:21 | XMS_ITS | Encounter Summary ---
Author Organization [employer] ([place], [place], [place], [place], [place]) Address [address] [place] [address] Care Team Providers Care Medical Liaison Name Role Phone Juan José Kendall MD Primary Care Provider + [phone] Juan José Kendall MD Unavailable [phone] Encounter Details Date Type Department Care Team (Late st Contact Info) Description 09/12/2018 Transcribed Document [facility] [place] Family Medicine [address] [place] [address] ProviderLaurie MD [address] [place] [address] Social History Tobacco Use Types Packs/Day Years Used Date Smoking Tobacco: Never Assessed Comments Unknown Sex and Gender Information Value Date Recorded Sex Assigned at Not on file Legal Sex Female 2:23 PM CDT Gender Identity Not on file Sexual Orientation Not on file documented as of this encounter Miscellaneous Notes * Cerner Conversion Note - Laurie ProviderMD - 09/12/2018 2:00 AM CDT Blocker Heated Metal Forms Details Entered On: 09/12/2018 2:10 EDT Performed [...] filedocumented in this encounter Care Teams Medical Liaison Relationship Specialty Start Date End Date Juan José Kendall MD 12[address] [facility] [address] [place] [address] PCP - General Family Medicine 12/25/22 Juan José Kendall MD [address] [facility] [address] [place] [phone] Referring Physician Family Medicine 12/25/22 documented as of this encounter
--- NOTE | 2025-02-22 09:22 | XR_ITS ---
FINAL REPORT CLINICAL HISTORY: right femur pain FINDINGS: Three views of the right femur were obtained. There is no prior exam for comparison. 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 The joint spaces are well preserved. There is no acute soft tissue abnormality. IMPRESSION: No acute abnormality identified. Reviewed, Interpreted and Dictated by Jose Millard MD Transcribed by Chiquis Crump Authenticated and [facility]
--- OUTSIDE RECORDS SUMMARY | 2025-02-22 09:22 | XMS_ITS | Encounter Summary ---
Author Organization [employer] ([place], [place], [place], [place], [place]) Address [address] [place] [address] Care Team Providers Care Rn Gynecology Name Role Phone Juan José Kendall MD Primary Care Provider +- [phone] Juan José Kendall MD Unavailable [phone] Encounter Details Date Type Department Care Team (Late st Contact Info) Description 09/01/2018 Transcribed Document [facility] [place] [facility] [place] [address] ProviderLaurie MD [address] [place] [address] Social History Tobacco Use Types Packs/Day Years Used Date Smoking Tobacco: Never Assessed Comments Unknown Sex and Gender Information Value Date Recorded Sex Assigned at Not on file Legal Sex Female 2:23 PM CDT Gender Identity Not on file Sexual Orientation Not on file documented as of this encounter Miscellaneous Notes * Cerner Conversion Note - Laurie ProviderMD - 09/01/2018 11:48 AM CDT Treatment [...] LINDA BEVERLY PT - 09/04/2018 12:10 EDT Snf Goals Other PT LTG Grid Goal #1 [...] LINDA BEVERLY PT - 09/04/2018 12:10 EDT Electronically signed by Aleks [facility] Conversion Gin Clerk Cerner at 07/24/2022 3:42 PM CDT documented in this encounter Plan of Treatment Not on file documented as of this encounter Visit Diagnoses Not on filedocumented in this encounter Care Teams Rn Gynecology Relationship Specialty Start Date End Date Juan José Kendall MD [address] [facility] [address] [place] [id number] PCP - General Family Medicine 12/25/22 Juan José Kendall MD 1210 [facility] [address] [place] [phone] Referring Physician Family Medicine 12/25/22 documented as of this encounter
--- OUTSIDE RECORDS SUMMARY | 2025-02-22 09:22 | XMS_ITS | Encounter Summary ---
Author Organization [employer] ([place], [place], [place], [place], [place]) Address [address] [place] [address] Care Team Providers Care C Application Developer Name Role Phone Juan José Kendall MD Primary Care Provider + [phone] Juan José Kendall MD Unavailable [phone] Encounter Details Date Type Department Care Team (Late st Contact Info) Description 09/12/2018 Transcribed Document [facility] [place] Family Medicine [address] [place] [address] ProviderLaurie MD [address] [place] [address] Social History Tobacco Use Types Packs/Day Years Used Date Smoking Tobacco: Never Assessed Comments Unknown Sex and Gender Information Value Date Recorded Sex Assigned at Not on file Legal Sex Female 2:23 PM CDT Gender Identity Not on file Sexual Orientation Not on file documented as of this encounter Miscellaneous Notes * Cerner Conversion Note - Historical ProviderMD - 09/12/2018 5:00 AM CDT Chart [...] filedocumented in this encounter Care Teams C Application Developer Relationship Specialty Start Date End Date Juan José Kendall MD [address] [place] [id number] PCP - General Family Medicine 12/25/22 Juan José Kendall MD [address] [place] [phone] Referring Physician Family Medicine 12/25/22 documented as of this encounter
--- OUTSIDE RECORDS SUMMARY | 2025-02-22 09:22 | XMS_ITS | Encounter Summary ---
Author Organization [employer] ([place], [place], [place], [place], [place]) Address [address] [place] [address] Care Team Providers Care Carver And Checkerer Specials Name Role Phone Juan José Kendall MD Primary Care Provider +- [phone] Juan José Kendall MD Unavailable [phone] Encounter Details Date Type Department Care Team (Late st Contact Info) Description 09/01/2018 Transcribed Document [facility] [place] [facility] [place] [address] ProviderLaurie MD [address] [place] [address] Social History Tobacco Use Types Packs/Day Years Used Date Smoking Tobacco: Never Assessed Comments Unknown Sex and Gender Information Value Date Recorded Sex Assigned at Not on file Legal Sex Female 2:23 PM CDT Gender Identity Not on file Sexual Orientation Not on file documented as of this encounter Miscellaneous Notes * Cerner Conversion Note - Laurie ProviderMD - 09/01/2018 2:00 AM CDT Metal Molder Details Entered On: 09/01/2018 0:30 EDT Performed [...] Suzan Zapata RN - 09/01/2018 0:30 EDT Electronically signed by Aleks [facility] Conversion User Experience Lead Cerner at 07/24/2022 3:34 PM CDT documented in this encounter Plan of Treatment Not on file documented as of this encounter Visit Diagnoses Not on filedocumented in this encounter Care Teams Carver And Checkerer Specials Relationship Specialty Start Date End Date Juan José Kendall MD [address] [facility] [address] [place] [id number] PCP - General Family Medicine 12/25/22 Juan José Kendall MD [address] [facility] [address] [place] [phone] Referring Physician Family Medicine 12/25/22 documented as of this encounter
--- OUTSIDE RECORDS SUMMARY | 2025-02-22 09:22 | XMS_ITS | Encounter Summary ---
Author Organization [employer] ([place], [place], [place], [place], [place]) Address [address] [place] [address] Care Team Providers Care School Social Worker Name Role Phone Juan José Kendall MD Primary Care Provider +- [phone] Juan José Kendall MD Unavailable [phone] Encounter Details Date Type Department Care Team (Late st Contact Info) Description 09/23/2018 Transcribed Document [facility] [place] [address] [place] [address] ProviderLaurie MD [address] [place] [address] Social History Tobacco Use Types Packs/Day Years [...] Performed On: 09/23/2018 9:51 EDT by FRANTZ BROWN RN Intervention Information: [...] on filedocumented in this encounter Care Teams School Social Worker Relationship Specialty Start Date End Date Juan José Kendall MD 12[address] [facility] [address] [place] [id number] PCP - General Family Medicine 12/25/22 Juan José Kendall MD [address] [facility] [address] [place] [phone] Referring Physician Family Medicine 12/25/22 documented as of this encounter
--- OUTSIDE RECORDS SUMMARY | 2025-02-22 09:23 | XMS_ITS | Encounter Summary ---
Author Organization [employer] ([place], [place], [place], [place], [place]) Address [address] [place] [address] Care Team Providers Care Database Modeler Name Role Phone Juan José Kendall MD Primary Care Provider + [phone] Juan José Kendall MD Unavailable [phone] Encounter Details Date Type Department Care Team (Late st Contact Info) Description 09/12/2018 Transcribed Document [facility] [place] Family Medicine [facility] [place] [address] Laurie Garcia MD [address] [place] [address] Social History Tobacco Use Types Packs/Day Years [...] mL 700 mg 14 mL, IV Piggyback, [id number] heparin 5,000 units/1 mL inj 5,000 Units 1 mL, SubCutaneous, Q8HInt metoclopramide 10 mg tab 10 mg 1 Tab, Oral, BID metoprolol tartrate 25 mg tab 25 mg 1 Tab, Oral, Daily ondansetron 4 mg/2 mL inj 4 mg 2 mL, IV Push, [id number] pantoprazole EC 40 mg tab 40 mg [...] % 20.5 % Lymph # 1.47 x10(3)/uL Giles % 9.9 % HI Giles # 0.71 K/uL Eos % 4.6 % [...] on filedocumented in this encounter Care Teams Database Modeler Relationship Specialty Start Date End Date Juan José Kendall MD [address] [facility] [address] [place] [id number] PCP - General Family Medicine 12/25/22 Juan José Kendall MD [address] [place] [phone] Referring Physician Family Medicine 12/25/22 documented as of this encounter
--- OUTSIDE RECORDS SUMMARY | 2025-02-22 09:23 | XMS_ITS | Encounter Summary ---
Author Organization [employer] ([place], [place], [place], [place], [place]) Address [address] [place] [address] Care Team Providers Care Yoghurt Maker Name Role Phone Juan José Kendall MD Primary Care Provider + [phone] Juan José Kendall MD Unavailable [phone] Encounter Details Date Type Department Care Team (Late st Contact Info) Description 09/23/2018 Transcribed Document [facility] [place] Family [place] [facility] [place] [address] Laurie Garcia MD [address] [place] [address] Social History Tobacco Use Types Packs/Day Years [...] inj 4 mg 2 mL, IV Push, [id number] pantoprazole EC 40 mg tab 40 mg [...] on filedocumented in this encounter Care Teams Yoghurt Maker Relationship Specialty Start Date End Date Juan José Kendall MD [address] [facility] [address] [place] [phone] PCP - General Family Medicine 12/25/22 Juan José Kendall MD [address] [place] [address] Referring Physician Family Medicine 12/25/22 documented as of this encounter
--- OUTSIDE RECORDS SUMMARY | 2025-02-22 09:24 | XMS_ITS | Encounter Summary ---
Author Organization [employer] ([place], [place], [place], [place], [place]) Address [address] [place] [address] Care Team Providers Care Steward/Stewardess Banquet Name Role Phone Juan José Kendall MD Primary Care Provider +- [phone] Juan José Kendall MD Unavailable [phone] Encounter Details Date Type Department Care Team (Late st Contact Info) Description 08/31/2018 Transcribed Document [facility] [place] Family [place] [facility] [address] ProviderLaurie MD [address] [place] [address] Social History Tobacco Use Types Packs/Day Years Used Date Smoking Tobacco: Never Assessed Comments Unknown Sex and Gender Information Value Date Recorded Sex Assigned at Not on file Legal Sex Female 2:23 PM CDT Gender Identity Not on file Sexual Orientation Not on file documented as of this encounter Miscellaneous Notes * Cerner Conversion Note - Laurie Garcia MD - 08/31/2018 11:34 AM CDT Education-(VTE) / [...] on filedocumented in this encounter Care Teams Steward/Stewardess Banquet Relationship Specialty Start Date End Date Juan José Kendall MD [address] [facility] [address] [place] [address] PCP - General Family Medicine 12/25/22 Juan José Kendall MD [address] [facility] [address] [place] [phone] Referring Physician Family Medicine 12/25/22 documented as of this encounter
--- OUTSIDE RECORDS SUMMARY | 2025-02-22 09:24 | XMS_ITS | Encounter Summary ---
Author Organization [employer] ([place], [place], [place], [place], [place]) Address [address] [place] [address] Care Team Providers Care Corporate Planner Name Role Phone Juan José Kendall MD Primary Care Provider + [phone] Juan José Kendall MD Unavailable [phone] Encounter Details Date Type Department Care Team (Late st Contact Info) Description 09/11/2018 Transcribed Document [facility] [place] Family Medicine [address] [place] [address] ProviderLaurie MD [address] [place] [address] Social History Tobacco Use Types Packs/Day Years Used Date Smoking Tobacco: Never Assessed Comments Unknown Sex and Gender Information Value Date Recorded Sex Assigned at Not on file Legal Sex Female 2:23 PM CDT Gender Identity Not on file Sexual Orientation Not on file documented as of this encounter Miscellaneous Notes * Cerner Conversion Note - Historical ProviderMD - 09/11/2018 5:00 PM CDT Chart [...] filedocumented in this encounter Care Teams Corporate Planner Relationship Specialty Start Date End Date Juan José Kendall MD [address] [place] [address] PCP - General Family Medicine 12/25/22 Juan José Kendall MD [address] [place] [address] [place] [address] Referring Physician Family Medicine 12/25/22 documented as of this encounter
--- OUTSIDE RECORDS SUMMARY | 2025-02-22 09:24 | XMS_ITS | Encounter Summary ---
Author Organization [employer] ([place], [place], [place], [place], [place]) Address [address] [place] [address] Care Team Providers Care Secondary Connector Armature Name Role Phone Juan José Kendall MD Primary Care Provider +- [phone] Juan José Kendall MD Unavailable [phone] Encounter Details Date Type Department Care Team (Late st Contact Info) Description 09/23/2018 Transcribed Document [facility] [place] Family Medicine [address] [place] [address] ProviderLaurie MD [address] [place] [address] Social History Tobacco Use Types Packs/Day Years [...] On: 09/23/2018 15:19 EDT by Nery Mckee Mat Making Machine Tender Nutrition Assessment Current Nutrition Regimen [...] wt loss encouraged Nutrition Care Level : Low Nery Mckee, Mat Making Machine Tender - 09/23/2018 15:18 EDT Electronically signed by Aleks [facility] Conversion Position Classification Specialist Cerner at 07/24/2022 3:57 PM CDT documented in this encounter Plan of Treatment Not on file documented as of this encounter Visit Diagnoses Not on filedocumented in this encounter Care Teams Secondary Connector Armature Relationship Specialty Start Date End Date Juan José Kendall MD [address] [facility] [address] [place] [address] PCP - General Family Medicine 12/25/22 Juan José Kendall MD [address] [facility] [address] [place] [phone] Referring Physician Family Medicine 12/25/22 documented as of this encounter
--- OUTSIDE RECORDS SUMMARY | 2025-02-22 09:25 | XMS_ITS | Encounter Summary ---
Author Organization [employer] ([place], [place], [place], [place], [place]) Address [address] [place] [address] Care Team Providers Care Berry Grower Name Role Phone Juan José Kendall MD Primary Care Provider + [phone] Juan José Kendall MD Unavailable [phone] Encounter Details Date Type Department Care Team (Late st Contact Info) Description 09/23/2018 Transcribed Document [facility] [place] Family Medicine [address] [place] [address] ProviderLaurie MD [address] [place], [place] [id number] Social History Tobacco Use Types Packs/Day Years Used Date Smoking Tobacco: Never Assessed Comments Unknown Sex and Gender Information Value Date Recorded Sex Assigned at Not on file Legal Sex Female 2:23 PM CDT Gender Identity Not on file Sexual Orientation Not on file documented as of this encounter Miscellaneous Notes * Cerner Conversion Note - Laurie ProviderMD - 09/23/2018 5:00 PM CDT Chart Check - Review Order Profile Entered On: 09/23/2018 16:53 EDT Performed On: 09/23/2018 17:00 EDT by FRANTZ BROWN, RN Chart Check Powerplans Initiated/Discontinued as Appropriate : Yes All Active Orders Reviewed : Yes FRANTZ BROWN, RN - 09/23/2018 16:53 EDT documented in this encounter Plan of Treatment Not on file documented as of this encounter Visit Diagnoses Not on filedocumented in this encounter Care Teams Berry Grower Relationship Specialty Start Date End Date Juan José Kendall MD [address] [place] [address] PCP - General Family Medicine 12/25/22 Juan José Kendall MD [address] [place] [id number] Referring Physician Family Medicine 12/25/22 documented as of this encounter
--- OUTSIDE RECORDS SUMMARY | 2025-02-22 09:25 | XMS_ITS | Encounter Summary ---
Author Organization [employer] ([place], [place], [place], [place], [place]) Address [address] [place] [address] Care Team Providers Care Director Instrumentation Name Role Phone Juan José Kendall MD Primary Care Provider + [phone] Juan José Kendall MD Unavailable [phone] Encounter Details Date Type Department Care Team (Late st Contact Info) Description 08/31/2018 Transcribed Document [facility] [place] Family Medicine [address] [place] [address] ProviderLaurie MD [address] [place] [address] Social History Tobacco Use Types Packs/Day Years Used Date Smoking Tobacco: Never Assessed Comments Unknown Sex and Gender Information Value Date Recorded Sex Assigned at Not on file Legal Sex Female 2:23 PM CDT Gender Identity Not on file Sexual Orientation Not on file documented as of this encounter Miscellaneous Notes * Cerner Conversion Note - Laurie Garcia MD - 08/31/2018 12:55 PM CDT UM Authorization Entered On: 08/31/2018 12:55 EDT Performed On: 08/31/2018 12:55 EDT by Inder Cowan Mkt Main Galley Scullion-Utilization Mgt Primary Insurance Authorization Authorization and Policy Numbers : Insurance 1 Health Plan: ANTHEM HMOP[employer] Policy Number: Authorization Number: Insurance 2 Health Plan: MEDICARE Policy Number: [id number] Authorization Number: Insurance Primary Name : Luz SKYE Authorization Status-Primary : Admit approved Authorization Number-Primary : [id number] Number of Days Authorized-Primary : DRG Authorized Service Begin Date-Primary : 08/30/2018 EDT Authorized Service End Date-Primary : 09/06/2018 EDT Historical Authorization Comments-Primary : Comment 1: Per Availity site (referred to different section than normal), inpt admission approved. Auth noted. Will need d/c date called. (Inder Cowan Mkt Main Galley Scullion-Utilization Mgt 08/31/2018 12:52) Inder Cowan Mkt Main Galley Scullion-Utilization Mgt - 08/31/2018 12:55 EDT Electronically signed by [facility] Conversion Logging Specialist Cerner at 07/24/2022 3:56 PM CDT documented in this encounter Plan of Treatment Not on file documented as of this encounter Visit Diagnoses Not on filedocumented in this encounter Care Teams Director Instrumentation Relationship Specialty Start Date End Date Juan José Kendall MD [address] [facility] [address] [place] [id number] PCP - General Family Medicine 12/25/22 Juan José Kendall MD [address] [facility] [address] [place] [phone] Referring Physician Family Medicine 12/25/22 documented as of this encounter
--- OUTSIDE RECORDS SUMMARY | 2025-02-22 09:25 | XMS_ITS | Encounter Summary ---
Author Organization [employer] ([place], [place], [place], [place], [place]) Address [address] [place] [address] Care Team Providers Care Sweetbread Trimmer Name Role Phone Juan José Kendall MD Primary Care Provider +- [phone] Juan José Kendall MD Unavailable [phone] Encounter Details Date Type Department Care Team (Late st Contact Info) Description 09/11/2018 Transcribed Document [facility] [place] [address] [place] [address] ProviderLaurie MD [address] [place] [address] Social History Tobacco Use Types Packs/Day Years [...] on filedocumented in this encounter Care Teams Sweetbread Trimmer Relationship Specialty Start Date End Date Juan José Kendall MD [address] [facility] [address] [place] [phone] PCP - General Family Medicine 12/25/22 Juan José Kendall MD [address] [facility] [address] [place] [phone] Referring Physician Family Medicine 12/25/22 documented as of this encounter
--- OUTSIDE RECORDS SUMMARY | 2025-02-22 09:26 | XMS_ITS | Encounter Summary ---
Author Organization [employer] ([place], [place], [place], [place], [place]) Address [address] [place] [address] Care Team Providers Care District Claims Manager Name Role Phone Juan José Kendall MD Primary Care Provider +- [phone] Juan José Kendall MD Unavailable [phone] Encounter Details Date Type Department Care Team (Late st Contact Info) Description 09/01/2018 Transcribed Document [facility] [place] Family Medicine [address] [place] [address] ProviderLaurie MD [address] [place] [address] Social History Tobacco Use Types Packs/Day Years Used Date Smoking Tobacco: Never Assessed Comments Unknown Sex and Gender Information Value Date Recorded Sex Assigned at Not on file Legal Sex Female 2:23 PM CDT Gender Identity Not on file Sexual Orientation Not on file documented as of this encounter Miscellaneous Notes * Cerner Conversion Note - Laurie ProviderMD - 09/01/2018 11:10 AM CDT Treatment [...] : 08/30/2018 14:25 Assisted by, OT : nutrition services assistant (COST CONTROL SUPERVISOR), scheme technician/aide Personal Devices : Personal Devices No Devices Recorded Assistive Devices : Assistive Devices No Devices Recorded [facility] OTR/L - 09/02/2018 12:46 EDT General Status [...] [facility]/L - 09/02/2018 12:46 EDT Mold Maintenance Technician Goals, OT Other LTG Grid Goal #1 Goal #2 Goal : Pt will return demo of bilateral UE theraband exercises. Pt will complete OOB ADL transfer assessment assistance prn. Date to Meet : 09/07/2018 EDT 09/07/2018 EDT Goal Status : Initial goal Initial goal [facility] OTR/Ivan - 09/02/2018 12:46 EDT [facility]/Ivan [...] improve Plan for Treatment : continue POC [facility] OTR/Ivan - 09/02/2018 12:46 EDT Pain Assessment Pain Scaled Used : 0-10 Pain scale Pain Score Pre-Intervention : 5 Location : Leg, left Pain Comment : pt reports medicated prior to tx [facility] OTR/Ivan - 09/02/2018 12:46 EDT Image 1 - [...] filedocumented in this encounter Care Teams District Claims Manager Relationship Specialty Start Date End Date Juan José Kendall MD [address] [facility] [address] [place] [phone] PCP - General Family Medicine 12/25/22 Juan José Kendall MD [address] [facility] [address] [place] [phone] Referring Physician Family Medicine 12/25/22 documented as of this encounter
--- OUTSIDE RECORDS SUMMARY | 2025-02-22 09:26 | XMS_ITS | Encounter Summary ---
Author Organization [employer] ([place], [place], [place], [place], [place]) Address [address] [place] [address] Care Team Providers Care Formula Checker Name Role Phone Juan José Kendall MD Primary Care Provider + [phone] Juan José Kendlal MD Unavailable [phone] Encounter Details Date Type Department Care Team (Late st Contact Info) Description 09/12/2018 Transcribed Document [facility] [place] Family Medicine [address] [place] [address] ProviderLaurie MD [address] [place] [address] Social History Tobacco Use Types Packs/Day Years [...] On: 09/12/2018 7:42 EDT by Nery Mckee Assembler Lay Ups Nutrition Assessment Current Nutrition Regimen Comment : [...] changes, beneficial wt loss encouraged Nery Mckee, Assembler [employer] Ups - 09/12/2018 11:02 EDT documented in this encounter Plan of Treatment Not on file documented as of this encounter Visit Diagnoses Not on filedocumented in this encounter Care Teams Formula Checker Relationship Specialty Start Date End Date Juan José Kendall MD [address] [facility] [address] [place] [phone] PCP - General Family Medicine 12/25/22 Juan José Kendall MD [address] [facility] [address] [place] [phone] Referring Physician Family Medicine 12/25/22 documented as of this encounter
--- OUTSIDE RECORDS SUMMARY | 2025-02-22 09:26 | XMS_ITS | Encounter Summary ---
Author Organization [employer] ([place], [place], [place], [place], [place]) Address [address] [place] [address] Care Team Providers Care Collection Systems Administrator Name Role Phone Juan José Kendall MD Primary Care Provider + [phone] Juan José Kendall MD Unavailable [phone] Encounter Details Date Type Department Care Team (Late st Contact Info) Description 09/01/2018 Transcribed Document [facility] [place] Family Medicine [address] [place] [address] ProviderLaurie MD [address] [place] [address] Social History Tobacco Use Types Packs/Day Years [...] Performed On: 09/01/2018 18:54 EDT by Jennifer Arndt Registered Nurse Event Note Event Date/Time : 09/01/2018 18:54 EDT Description of Event : Dr Porter and MACHINE BRUSH MAKER notified of sepsis alert Jennifer Arndt, Registered Nurse - 09/01/2018 18:54 EDT documented in this encounter Plan of Treatment Not on file documented as of this encounter Visit Diagnoses Not on filedocumented in this encounter Care Teams Collection Systems Administrator Relationship Specialty Start Date End Date Juan José Kendall MD [address] [place] [phone] PCP - General Family Medicine 12/25/22 Juan José Kendall MD [address] [place] [facility] [address] [place] [phone] Referring Physician Family Medicine 12/25/22 documented as of this encounter
--- OUTSIDE RECORDS SUMMARY | 2025-02-22 09:28 | XMS_ITS | Patient Health Record ---
Author Organization [facility] Address [address] [place] [phone] Care Team Providers Care Automotive Tire Worker Name Role Phone Huma Kendall Primary Care Provider Alejandro Bourgeois Unavailable [phone] Allergies Allergen (clinical drug ingredient) Drug/Non Drug Allergy documented on EMR Reaction Allergy Type Onset Date Status clarithromycin Clarithromycin reflux Drug Allergy Active Results Component Value Reference Range Notes H-CBC (Not yet reviewed by cole domínguez) Interpretation: Performing Lab: Notes/Report: WBC 4.6 4.8-10.8 K/mm3 RBC 3.15 4.20-5.40 M/mm3 HGB 10.1 12.2-16.2 g/dL HCT 30.5 37.0-47.0 % MCV 96.8 81-99 fl MCH 32.1 27.0-31.2 pg MCHC 33.1 31.8-35.4 g/dL RDW-SD 49.1 RDW 13.8 11.5-17.5 % PLT 179 142-424 K/mm3 MPV 10.1 7.4-10.4 fl NE% 57.7 37.0-80.0 % LY% 22.0 10-50 % MO% 8.5 1.7-9.3 % EO% 10.5 0.1-12.0 % BA% 1.1 0.1-2.0 % NRBC% 0 IG% 0.2 NE# 2.7 1.8-7.8 K/mm3 LY# 1.0 0.7-4.5 K/mm3 MO# 0.4 0.1-1.0 K/mm3 EO# 0.5 0.0-0.4 Kmm3 BA# 0.1 0-0.2 K/mm3 NRBC# 0 IG# 0.01 X ray : Femur, right Reviewed date:05/01/2024 09:10:03 AM Interpretation: Performing Lab: Notes/Report: P-Iron Reviewed date:04/27/2024 06:11:12 PM Interpretation:Normal Performing Lab: Notes/Report: CLIA: [id number] Charly Kapoor MD, Cheese Specialist [address] [place] [address] , [address], [place] [address] Test performed by [facility] Iron 43 37-145 ug/dL P-Iron Binding Cap Reviewed date:04/27/2024 06:11:12 PM Interpretation:220 Performing Lab: Notes/Report: Test performed by [facility] [address] , [facility] [place] [address] CLIA: [id number] Charly Kapoor MD, Cheese Specialist Iron Binding Cap 220 250-450 ug/dL P-Reticulocyte Count Reviewed date:04/27/2024 06:11:12 PM Interpretation:Normal Performing Lab: Notes/Report: Test performed by [facility] [address] , [facility] [place] [address] Charly Kapoor MD, Cheese Specialist CLIA: [id number] Reticulocyte Count 0.8 0.5-2.1 % P-Folate Reviewed date:04/27/2024 06:11:12 PM Interpretation:Normal Performing Lab: Notes/Report: Test performed by [facility] [address] , [place] [address] Charly Kapoor MD, Cheese Specialist CLIA: [id number] Folate 7.62 >4.59 ng/mL O-W-Rlfvaurr Protein (CRP) Reviewed date:04/27/2024 06:11:12 PM Interpretation:Normal Performing Lab: Notes/Report: Test performed by [facility] [address] , [place] [address] Charly Kapoor MD, Cheese Specialist CLIA: [id number] C-Reactive Protein (CRP) 0.21 <0.50 mg/dL P-Vitamin B12 Reviewed date:04/27/2024 06:11:11 PM Interpretation:Normal Performing Lab: Notes/Report: Test performed by [email or web address], [employer] [address] [place] [address] , [address], [place] [address] Charly Kapoor MD, Cheese Specialist CLIA: [id number] Vitamin B12 213 267-5042 pg/mL CBC Fingerstick (in house) Reviewed date:04/25/2024 04:30:17 [...] - 38 plat 122 100 - 400 Mammogram Reviewed date:02/25/2024 01:54:49 PM Interpretation:benign, annual f/u Performing Lab: Notes/Report: benign, annual f/u result benign, annual f/u H-TSH Reviewed date:03/17/2024 12:26:51 PM Interpretation:Normal Performing Lab: Notes/Report: TSH 2.82 0.465-4.68 uIU/mL H-Lipid Panel Reviewed date:03/17/2024 12:26:51 PM Interpretation:chol 63, dldl <30, hdl 32 Performing Lab: Notes/Report: Patient Fasting? Y TRIG 48 30-150 mg/dl CHOL 63 140-200 mg/dl DLDL < 30.00 100-129 mg/dL VLDL 10 0-40 mg/dL HDL 32 40-60 mg/dl CHLHDL 2.0 1-3.5 H-CMP Reviewed date:03/17/2024 12:26:51 PM Interpretation:Na 135, gfr 55, ast 81, prot 5.7, alb 3.1, alk phos 202 Performing Lab: Notes/Report: NA 135 136-145 mmol/L K 3.8 3.5-5.1 mmoL/L CL 107 98-107 mmol/L CO2 23 22.0-30.0 mmol/L GAP 8.8 5-15 mEq/L BUN 14 7-17 mg/dl CREATT 1.00 0.52-1.04 mg/dl GFRAA 67 >60 ML/MIN EGFR 55 >60 ml/min GLU 94 74-100 mg/dl CA 8.6 8.4-10.2 mg/dl BILIT 0.8 0.2-1.3 mg/dl AST 81 14-36 U/L ALT 33 12-78 U/L TP 5.7 6.3-8.2 g/dl ALB 3.1 3.5-5.0 g/dl GLOB 2.6 1.3-3.2 g/dL AGRATIO 1.2 1.1-1.8 ALP 202 38-126 U/L Percent Saturation Reviewed date:04/27/2024 06:11:12 PM Interpretation:Normal Performing Lab: Notes/Report: Test performed by [facility] [address] , [place] [address] Charly Kapoor MD, Cheese Specialist CLIA: [id number] Percent Saturation 20 15-50 % Hemoccult- IFOBT (in house) Reviewed date:05/15/2024 01:46:22 PM Interpretation:Negative Performing Lab: Notes/Report: Negative results Neg CBC Fingerstick (in house) Reviewed date:06/30/2024 11:33:15 [...] - 35 mchc 33.9 31 - 38 X ray : Femur, right Reviewed date:04/26/2024 09:03:33 AM Interpretation: Performing Lab: Notes/Report: Medications Medication SIG (Take, Route, Frequency, Duration) Notes Start Date End Date Status Gabapentin 300 MG 3 capsule Orally twi ce a day; Duration: 30 days 09/25/2024 Active Promethazine HCl 25 MG 1 tablet as neede d Orally 3 times a day 08/08/2024 Active MS Contin 30 MG 1 tablet Orally Two times a day; Duration: 30 days 02/08/2025 Active Pantoprazole Sodium 40 MG 1 tablet 1/2 t o 1 hour before morning meal Orally Once a day; Duration: 90 days Active Levothyroxine Sodium 25 MCG 1 tablet in the morning on an empty stomach Orally Once a day; Duration: 90 days Active Mirtazapine 15 MG 1 tab(s) orally once a day (at bedtime); Duration: 30 day(s) Not-Taking Linzess 290 MCG 1 capsule at least 3 0 minutes before the first meal of the day on an empty stomach Orally Once a day; Duration: 90 days Active oxyBUTYnin Chloride 5 MG TAKE 1 TABLET T WICE DAILY; Duration: 90 Active Atorvastatin Calcium 20 MG 1 tablet Oral ly Once a day; Duration: 90 days Active Magnesium Oxide 400 MG 1 tab(s) orally T wo times a day 03/19/2022 Active Hyoscyamine Sulfate 0.125 MG 1 tablet on the tongue and allow to dissolve as needed Orally every 4 hrs, prn 07/01/2023 Active Albuterol Sulfate HFA 108 (90 Base) MCG/ACT 2 puff as needed Inhalation QID and 2hrs PRN 06/07/2023 Active Ondansetron HCl 4 MG 1 tab(s) orally thr ee times a day as needed Active hydrOXYzine HCl 25 MG 1 tablet as needed Orally three times a day as needed for itching 10/15/2023 Not-Taking traZODone HCl 50 MG TAKE 1 TABLET AT BEDTIME; Duration: 90 Active Ketoconazole 2 % APPLY TOPICALLY TWIC E WEEKLY; Duration: 60 Not-Taking Topiramate 50 MG 1 tablet Orally twic e a day; Duration: 90 days Active Meloxicam 15 MG 1 tablet Orally Once a day Active Potassium Chloride ER 10 MEQ 1 capsule with food Orally Twice a day; Duration: 90 days Active Sucralfate 1 GM 1 tablet on an empty stomach Orally Twice a day; Duration: 90 days Active Immunizations Vaccine Route Administration Date Status Comme nts Fluzone High Dose (65yr and older) IM Intramuscular 02/09/2020 Administered Fluzone High Dose (65yr and older) IM Intramuscular 03/18/2021 Administered Fluzone High Dose (65yr and older) Unknown 03/20/2022 Administered Fluzone Intradermal Quad private(18-64yrs) IM Intramuscular 01/10/2016 Administered Fluzone Quad (6months&older) IM Intramuscular 01/05/2017 Administered Fluzone Quad (6months&older) IM Intramuscular 01/07/2018 Administered Fluzone Quad (6months&older) IM Intramuscular 12/23/2018 Administered Fluzone Quad-Medicare (6months&older) IM Intramuscular 01/08/2015 Administered PNEUMOVAX 23 VACCINE IM Intramuscular 03/08/2015 Administe red Prevnar (PCV13) IM Intramuscular 11/10/2019 Administered Shingrix IM Intramuscular 09/03/2017 Administered Tetanus Tdap-Adacel (over 7yrs) IM Intramuscular 07/29/2009 Administered Tetanus Tdap-Adacel (over 7yrs) IM Intramuscular 05/10/2015 Administered xFlu shot-36 months and older IM Intramuscular 02/04/2007 Administered xFlu shot-36 months and older IM Intramuscular 12/06/2008 Administered xFlu shot-36 months and older IM Intramuscular 01/30/2011 Administered xFluzone Intradermal (18-64yrs)-trivalent ID Intradermal 12/25/2011 Administered xFluzone Intradermal (18-64yrs)-trivalent ID Intradermal 12/23/2012 Administered xFluzone Intradermal (18-64yrs)-trivalent-medic are pts ID Intradermal 12/23/2012 Administered bAixaivg-adhszxcwj-yydalko e pts. IM Intramuscular 01/12/2014 Administered Problems Problem Type SNOMED Code ICD Code Onset Dates Problem Status W/U Status Risk Notes Problem Gastro-esophageal reflux disease without esophagitis (412699556) Gastro-esophageal reflux disease without esophagitis (K21.9) Active confirmed Problem Essential hypertension (77680443) Essential (primary) hypertension (I10) Active confirmed Problem Hypercalcemia (58400516) Hypercalcemia (E83.52) Active confirmed Problem Anemia (000389857) Anemia (D64.9) Active confirmed Problem Hypertension (87533594) Hypertension (I10) Active confirmed Problem Seasonal allergy (535447348) Seasonal allergies (J30.2) Active confirmed Problem Osteoarthritis (873032306) Osteoarthritis (M19.90) Active confirmed Problem Migraine aura without headache (392799035) Migraine headache without aura (G43.009) Active confirmed Problem Overactive urinary bladder (disorder) (701308687) OAB (overactive bladder) (N32.81) Active confirmed Problem Chronic pain syndrome (120263566) Chronic pain syndrome (G89.4) Active confirmed Problem Hypertensive heart AND renal disease (91777578) Hypertensive heart and chronic kidney disease without heart failure, with stage 1 through stage 4 chronic kidney disease, or unspecified chronic kidney disease (I13.10) Active confirmed Problem Gastroparesis (427327794) Gastroparesis (K31.84) Active confirmed Problem Osteomyelitis (75916711) Osteomyelitis, unspecified (M86.9) Active confirmed Problem Post-laminectomy syndrome (47892475) Postlaminectomy syndrome, not elsewhere classified (M96.1) Active confirmed Problem Constipation by delayed colonic transit (78997414) Constipation by delayed colonic transit (K59.01) Active confirmed Problem Failed back syndrome (27907469) 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) Active confirmed Problem Hypothyroidism (19066667) Hypothyroidism (E03.9) Active confirmed Problem Irritable bowel syndrome (21404534) Irritable bowel syndrome (K58.9) Active confirmed Problem Hypolipidemia (829915801) Hypolipidemia (E78.6) Active confirmed Problem Dyslipidemia (248626328) Dyslipidemia (E78.5) Active confirmed Problem Pharyngeal dysphagia (21379306011255) Pharyngeal dysphagia (R13.13) Active confirmed Problem Irritable bowel syndrome characterized by constipation (088693819) Irritable bowel syndrome with constipation (K58.1) Active confirmed Problem Drug-induced constipation (40306390) Drug-induced constipation (K59.03) Active confirmed Problem Body mass index 40+ - severely obese (851703720) Body mass index (BMI) of 40.1-44.9 in adult (Z68.41) Active confirmed Problem Phantom limb (611230037) Phantom limb pain (G54.6) Active confirmed Problem Chronic kidney disease stage 3 (disorder) (352965256) Stage 3 chronic kidney disease, unspecified whether stage 3a or 3b CKD (N18.30) Active confirmed Problem Burning mouth syndrome (550808188) 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) Active confirmed Problem Chronic kidney disease stage 3A (disorder) (371158784) CKD stage 3a, GFR 45-59 ml/min (N18.31) Active confirmed Vital Signs Heart Rate 65 /min 09/12/2024 Blood pressure diastolic 68 mm Hg 09/12/2024 Height 67 in 09/12/2024 Blood pressure systolic 110 mm Hg 09/12/2024 Weight 000 lbs 09/12/2024 Encounters Encounter Location Date Provider Diagnosis [facility] [address] [place] [id number] 03/16/2024 R Ranjeet Enoch Osteoarthritis M19.9 0 ; Phantom limb pain G54.6 ; Dyslipidemia E78.5 ; Gastroparesis K31.84 ; Drug-induced constipation K59.03 and Hypolipidemia E78.6 [facility] [address] [id number] 04/25/2024 R Ranjeet Enoch Leg pain, right M79. 604 ; URI (upper respiratory infection) J06.9 and Anemia D64.9 [facility] [address] [place], [place] [id number] 05/01/2024 R Ranjeet Enoch Acute anemia D64.9 [facility] [address] [place], [place] [id number] 06/22/2024 R Ranjeet Enoch Anemia D64.9 [facility] [address] [place], [place] [id number] 09/12/2024 R Ranjeet Enoch Phantom limb pain G5 4.6 ; Irritable [...] CKD stage 3a, GFR 45-59 ml/min N18.31 [facility] [address] [place], [place] [id number] 03/08/2024 R Ranjeet Enoch Failed back surgical syndrome M96.1 [facility] [address] [place], [place] [id number] 03/27/2024 R Ranjeet Enoch [facility] [address] [place], [place] [id number] 04/07/2024 R Ranjeet Enoch Failed back surgical syndrome M96.1 [facility] [address] [place], [place] [id number] 04/20/2024 R Ranjeet Enoch Thrush B37.0 [facility] [address] [place], [place] [id number] 04/24/2024 R Ranjeet Enoch [facility] [address] [place], [place] [id number] 04/26/2024 R Ranjeet Enoch [facility] [address] [place], [place] [id number] 04/27/2024 R Ranjeet Enoch [facility] [address] [place], [place] [id number] 05/11/2024 R Ranjeet Enoch [facility] [address] [place], [place] [id number] 05/12/2024 R Ranjeet Enoch Failed back surgical syndrome M96.1 [facility] [address] [place], [place] [id number] 06/12/2024 R Ranjeet Enoch Failed back surgical syndrome M96.1 [facility] [address] [place], [place] [id number] 06/13/2024 R Ranjeet Enoch Failed back surgical syndrome M96.1 [facility] [address] [place], [place] [id number] 06/27/2024 R Ranjeet Enoch Phantom limb pain G5 4.6 [facility] [address] [place], [place] [id number] 06/30/2024 R Ranjeet Enoch [facility] [address] [place], [place] [id number] 07/12/2024 R Ranjeet Enoch [facility] [address] [place], [place] [id number] 08/08/2024 R Ranjeet Enoch [facility] [address] [place], [place] [id number] 08/10/2024 R Ranjeet Enoch [facility] [address] [place], [place] [id number] 09/13/2024 R Ranjeet Enoch Phantom limb pain G5 4.6 [facility] [address] [place], [place] [id number] 09/16/2024 R Ranjeet Enoch Screening for osteoporosis Z13.820 [facility] [address] [place], [place] [id number] 10/11/2024 R Ranjeet Enoch [facility] [address] [place], [place] [id number] 11/07/2024 R Ranjeet Enoch [facility] [address] [place], [place] [id number] 11/15/2024 R Ranjeet Enoch [facility] [address] [place], [place] [id number] 12/11/2024 Alejandro Olivebridge [facility] [address] [place], [place] [id number] 01/01/2025 R Ranjeet Enoch [facility] [address] [place], [place] [id number] 01/09/2025 Alejandro Olivebridge [facility] [address] [place], [place] [id number] 02/07/2025 R Ranjeet Enoch Assessments Encounter Date Diagnosis (ICD Code) Assessment Notes Treatment Notes Treatment Clinical Notes Section Notes 05/01/2024 Acute anemia (ICD-10 - D64.9) 05/12/2024 Failed back surgical syndrome (ICD-10 - M96.1) 06/12/2024 Failed back surgical syndrome (ICD-10 - M96.1) 06/13/2024 Failed back surgical syndrome (ICD-10 - M96.1) 06/22/2024 Anemia (ICD-10 - D64.9) 06/27/2024 Phantom limb pain (ICD-10 - G54.6) 03/16/2024 Phantom limb pain (ICD-10 - G54.6) 04/07/2024 Failed back surgical syndrome (ICD-10 - M96.1) 04/20/2024 Thrush (ICD-10 - B37.0) 04/25/2024 URI (upper respiratory infection) (ICD-10 - J06.9) 03/08/2024 Failed back surgical syndrome (ICD-10 - M96.1) 03/16/2024 Osteoarthritis (ICD-10 - M19.90) 04/25/2024 Leg pain, right (ICD-10 - M79.604) Obtain x-ray to rule out osteomyelitis 09/12/2024 Irritable bowel syndrome with constipation (ICD-10 - K58.1) 09/12/2024 Phantom limb pain (ICD-10 - G54.6) Increase gabapentin. Consider follow-up appointment with pain management 09/13/2024 Phantom limb pain (ICD-10 - G54.6) 09/16/2024 Screening for osteoporosis (ICD-10 - Z13.820) 03/16/2024 Dyslipidemia (ICD-10 - E78.5) 09/12/2024 Failed back surgical syndrome (ICD-10 - M96.1) 04/25/2024 Anemia (ICD-10 - D64.9) No obvious source of blood loss. She denies melena, hematochezia, hematuria. No abdominal pain or nausea. Check anemia labs. She is also provided a Hemoccult test kit to obtain stool sample at home and return to office 03/16/2024 Gastroparesis (ICD-10 - K31.84) 09/12/2024 Chronic pain syndrome (ICD-10 - G89.4) 09/12/2024 Postlaminectomy syndrome, not elsewhere classified (ICD-10 - M96.1) 03/16/2024 Drug-induced constipation (ICD-10 - K59.03) 09/12/2024 Gastro-esophageal reflux disease without esophagitis (ICD-10 - K21.9) 03/16/2024 Hypolipidemia (ICD-10 - E78.6) 09/12/2024 Burning mouth syndrome (ICD-10 - K14.6) Avoidance of offending foods 09/12/2024 SK (seborrheic keratosis) (ICD-10 - L82.1) 09/12/2024 Anemia (ICD-10 - D64.9) 09/12/2024 Hypothyroidism (ICD-10 - E03.9) 09/12/2024 Dyslipidemia (ICD-10 - E78.5) 09/12/2024 CKD stage 3a, GFR 45-59 ml/min (ICD-10 - N18.31) Plan Of Treatment Pending Test Test Name Order Date Bone density 09/16/2024 H-TSH 09/12/2024 H-CBC 09/12/2024 H-CBC 02/22/2025 H-Lipid Panel 09/12/2024 H-CMP 09/12/2024 Next Appt Details Provider Name:Huma Dias, 03/20/2025 03:45:00 PM, [address], [place], [place], [id number], Insurance Providers Payer Name Payer Address Payer Phone Subscriber Number Group Number Insured Name Patient Relationship to Insured Coverage Start Date Coverage End Date [facility] [address] [place] [address] [id number] Trudi Blair Self - patient is the insured MEDICARE PART B [address] [address] [facility] [place] [address] [id number] Trudi Blair Self - patient is the insured Medications Administered Medication Instructions Date of Administration Dosage Notes depo medrol 80 mg 08/04/2013 1.5 mL Depo- Medrol 40 mg/ml 08/18/2021 1.5 mL Dexamethasone 05/03/2008 1 mL Dexamethasone 08/13/2009 1 mL Medical (General) History Medical History History ICD Code Hypertension Migraine Headache Seasonal Allergies Esophageal Reflux Arthritis Cervical Cancer-1988 Plantar Fasciatis Chronic Back Pain, DDD/DJD Severe DJD of knees/ xrays 05/2016 Lipedema 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 Guerrero 1 05/2017 LT Patella Reconstruction- Dr. Guerrero 06/2018 Patellectomy 08/31/2018 RT Patella Repair 01/2019 RT Knee Arthrodesis, Dr. Robles 2019 RT AKA/ Margaret 02/2021 Cholecystectomy - 05/22/2022 Hiatal Hernia Repair/ Dr. Patel/ Carlton ornelas 11/09/2023 Hospitalization History Reason Date(Month/Year) Proteus urinary Tract Infection- [facility] 10/06-01/2019 [facility] 08/31- AMS-kidney failure, UTI- [facility] 03/2015 Back Surgery- [facility] 08/09/2008 Knee- [facility] 09/08/2006
--- OUTSIDE RECORDS SUMMARY | 2025-02-22 09:28 | XMS_ITS | Clinical Summary ---
Author Organization [facility] Address [address] [place] [address] Care Team Providers Care Diesel Dragline Operator Name Role Phone Juan José Kendall MD Primary Care Provider [phone] Allergies Active Allergy Reactions Criticality Noted Date [...] (05/21/2022): Added automatically from request for surgery [id number] Recurrent MRSA Receiving intravenous antibiotic treatment as ou tpatient 06/04/2020 Knee pain 10/25/2018 Resolved Problems Problem Noted Date Diagnosed Date Resolved Date Staphylococcal arthritis, right knee 01/22/2021 05/21/2022 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, sequela 01/22/2021 05/21/2022 Failed total knee replacement 10/16/2019 05/21/2022 Encounters Date Type Department Care Team Description 11/23/2024 Telephone [facility]astic [facility] [address] [place] [address] Jesse Perrin 11/22/2024 Telephone [facility] Plastic [facility]constructive Surgery [address] [place] [address] Jesse Perrin from Last 3 Months Immunizations Immunization Administration Dates Next Due Moderna COVID-19 Vaccine [...] 84 08/25/2022 9:03 AM EDT Temperature 36.2 C (97.1 F) 07/16/2022 11:40 AM EDT Respiratory Rate 13 07/16/2022 12:2 [...] [facility]-Depression Screening 1954 [facility]-Hepatitis C Screening 1954 [facility]-Medicare Annual Wellness (AWV) 1954 [facility]-/Child/Adol SDOH Screenings 1954 [facility]- SDOH Screenings 1972 [facility]-Adult SDOH Screenings 1972 [facility]-DTaP,Tdap,and Td Vaccine s (1 - Tdap) 1973 CT Colonography 08/24/1999 Colonoscopy 08/24/1999 FIT-DNA 08/24/1999 FIT 08/24/1999 FOBT 08/24/1999 Sigmoidoscopy 08/24/1999 [facility]-Colorectal Cancer Screening 08/24/1999 [facility]-Breast Cancer Screening 2004 [facility]-Pneumococcal Vaccine: 50 + Years (1 of 1 - PCV) 2004 [facility]-Zoster Vaccines (1 of 2) 2004 [facility]-RSV Vaccine: 60+ Years o r (1 - Risk 60-74 years 1-dose series) 2014 BGS-INNBS-81 Vaccine (2 - Moderna risk series) 04/17/2022 03/20/2022 [facility]-Influenza Vaccine (#1) 12/04/202401/01, 03/20/2022, 03/18/2021 [facility]-Obesity Intervention Completed 08/25/2022 HPV Vaccines Aged Out No longer eligi ble based on patient's age to complete this topic [facility]-HIB Vaccines Aged Out No longer e [...] this topic Medical Devices Implanted Type Area Steam Shovelman Device Identifier Shelf Expiration Date Model / Serial / Lot Stent Zimmon 7fr X 7cm - [id number] Implanted:Qty: 1 on 05/21/2022 at [facility] Other (See Comments) [id number] 02/19/2025 [id number] / / [id number] Stent Biliary 10 X 60mm - [id number] Implanted:Qty: 1 on 05/21/2022 at [facility] Other (See Comments) [id number] 01/03/2025 [id number] / [id number] / [id number] Explanted Type Area Steam Shovelman Device Identifier Shelf Expiration Date Model / Serial / Lot Total Knee Bilateral: Knee Additional Health Concerns Infection Onset Date Last Indicated MRSA Comment:MRSA (methicillin resistant Staphylococcus aureus) 04/17/2020 05/21/2022 [place] [address] MARGARETH Advance Directives * Full Code (Latest Code Status on File) Date Activated Date Inactivated Comments 05/20/2022 11:12 PM 05/23/2022 2:50 PM Question Answer Comments Patient has decision-making capacity? Yes * Full Code Date Activated Date Inactivated Comments 01/22/2021 4:15 PM 01/24/2021 4:15 PM Question Answer Comments Patient has decision-making capacity? Yes Care Teams Diesel Dragline Operator Relationship Specialty Start Date End Date Juan José Kendall MD [address] [facility] [address] [place] [address] PCP - General 03/12/21
--- OUTSIDE RECORDS SUMMARY | 2025-02-22 09:28 | XMS_ITS | Encounter Summary ---
Author Organization [employer] ([place], [place], [place], [place], [place]) Address [address] [place] [address] Care Team Providers Care Conductor Symphonic Orchestra Name Role Phone Juan José Kendall MD Primary Care Provider +- [phone] Juan José Kendall MD Unavailable [phone] Encounter Details Date Type Department Care Team (Late st Contact Info) Description 06/27/2018 Transcribed Document [facility] [place] Family Medicine [address] [place] [address] ProviderLaurie MD [address] [place] [address] Social History Tobacco Use Types Packs/Day Years Used Date Smoking Tobacco: Never Assessed Comments Unknown Sex and Gender Information Value Date Recorded Sex Assigned at Not on file Legal Sex Female 2:23 PM CDT Gender Identity Not on file Sexual Orientation Not on file documented as of this encounter Miscellaneous Notes * Cerner Conversion Note - Historical ProviderMD - 06/27/2018 3:45 PM CDT [facility] Main OR IntraOp Summary Primary Physician: JONG SANTACRUZ MD-ORT Finalized Date/Time: 06/28/18 12:38:51 Pt. Name: BAIRON TRUDIRA Morgan RodriguezO.B./Sex: 1955 Female Med Rec #: [id number] Physician: JONES HIDALGO MD-INT Financial #: [id number] Pt. Type: O Room/Bed: [facility]/ Admit/Disch: 06/27/18 03:45:00 - Institution: E IntraOp Case Attendance Entry 1 Entry 2 Entry 3 Case Attendee JONG SANTACRUZ MD-ORT EBONY JOHNSON, Stella Crawford, Boxing Trainer Role Performed Surgeon/Proceduralist, BRIDGE CRANE OPERATOR/Nurse Button Reclaimer Scrub, First First Time In 06/27/18 15:09:00 [...] BEDOYA FA Accordino, Joe, ST Role Performed Plasma Specialist, Railroad Cook, First Scrub, Second Time In 06/27/18 15:09:00 [...] Bland, Jordyn A, RN Role Performed Anesthesiologist Plasma Specialist, Second Time In 06/27/18 17:02:00 06/27/18 17:12:00 Time Out 06/27/18 18:32:00 06/27/18 18:32:00 Procedure Patella Tendon Patella Tendon Repair(Left) Repair(Left) Other Attendee Superficial Wound Closed By: Last Modified By: Ruby Flores RN Ruby Flores RN 06/27/18 18:37:03 06/27/18 18:37:03 [facility] IntraOp Case Attendance Audit 06/27/18 18:37:03 Boring Inspector: CYNDI Modifier: GARY 1 <+> Time [...] <*> Procedure Patella Tendon Repair(Left) 06/27/18 17:13:29 Boring Inspector: CYNDI Modifier: CYNDI 3 <+> Time Out 3 <*> Procedure Patella Tendon Repair(Left) 4 <+> Time Out 4 <*> Procedure Patella Tendon Repair(Left) <+> 8 Case Attendee <+> 8 Role Performed <+> 8 Time In <+> 8 Procedure 06/27/18 17:04:20 Boring Inspector: CYNDI Modifier: CYNDI 2 <+> Time Out 2 <*> Procedure Patella Tendon Repair(Left) 06/27/18 17:03:51 Boring Inspector: CYNDI Modifier: CYNDI 1 <*> Procedure Patella Tendon Repair(Left) 2 <*> Procedure Patella Tendon Repair(Left) 3 <*> Procedure Patella Tendon Repair(Left) 4 <*> Procedure Patella Tendon Repair(Left) 5 <*> Procedure Patella Tendon Repair(Left) 6 <+> Time In 6 <*> Procedure Patella Tendon Repair(Left) <+> 7 Case Attendee <+> 7 Role Performed <+> 7 Time In <+> 7 Procedure 06/27/18 17:02:05 Boring Inspector: ALBERTINA Modifier: RONNYU <+> 6 Case Attendee <+> 6 Role Performed <+> 6 Procedure 06/27/18 16:23:38 Boring Inspector: ALBERTINA Modifier: LONGGA 1 <*> Procedure Knee Arthroscopy [...] Ligament Alexx, Patella Tendon Repair(Left) 06/27/18 16:23:18 Boring Inspector: LONGGA Modifier: LONGGA 1 <*> Procedure Knee Arthroscopy w Patella Ligament Alexx 2 <*> Procedure Knee Arthroscopy w Patella Ligament Alexx 3 <*> Procedure Knee Arthroscopy w Patella Ligament Alexx 4 <*> Procedure Knee Arthroscopy w Patella Ligament Alexx 5 <*> Procedure Knee Arthroscopy w Patella Ligament Alexx 06/27/18 15:53:27 Boring Inspector: LONGGA Modifier: LONGGA <+> 1 Procedure [...] [facility] IntraOp Case Times Audit 06/27/18 18:36:38 Boring Inspector: JORDYNBLAND Modifier: JORDYNBLAND <+> 1 Out Room Time <+> 1 Stop Time 06/27/18 18:30:49 Boring Inspector: LONGGA Modifier: JORDYNBLAND <+> 1 Stop Time 06/27/18 15:50:08 Boring Inspector: LONGGA Modifier: LONGGA 1 <*> Start Time 06/27/18 15:48:00 06/27/18 15:48:47 Boring Inspector: LONGGA Modifier: LONGGA <+> 1 Start [...] (Scrub) Tech Tech Count Performed By TANMAY SU RN LEININGER, SUSAN, RN Bland, Jordyn A, RN (RN) Last Modified By: TANMAY SU RN LEININGER, SUSAN, RN Bland, Jordyn A, RN 06/27/18 16:58:57 06/27/18 17:02:21 06/27/18 17:59:23 [facility] IntraOp Counts Verification Audit 06/27/18 17:59:23 Boring Inspector: CYNDI Modifier: GARY <+> 3 Procedure <+> 3 Count Type <+> 3 Counts Verification Sequence <+> 3 Count Results <+> 3 Count Performed By (Scrub) <+> 3 Count Performed By (RN) 06/27/18 17:02:21 Boring Inspector: CYNDI Modifier: CYNDI <+> 2 Procedure <+> 2 Count Type <+> 2 Counts Verification Sequence <+> 2 Count Results <+> 2 Count Performed By (Scrub) <+> 2 Count Performed By (RN) 06/27/18 16:58:57 Boring Inspector: LONGGA Modifier: LEINSU 1 <*> Procedure Patella Tendon Repair(Left) 1 <+> Count Results 1 <+> Count Performed By (Scrub) 1 <+> Count Performed By (RN) 06/27/18 16:23:39 Boring Inspector: LONGGA Modifier: LONGGA 1 <*> Procedure Knee Arthroscopy w Patella Ligament Alexx, Patella Tendon Repair(Left) 06/27/18 16:23:20 Boring Inspector: LONGGA Modifier: LONGGA 1 <*> Procedure [...] Transfer to PACU Phase I Post-op Transport Stretcher/michael Via Patient Transport TANMAY SU RN Accompanied [...] IntraOp Fire Risk Assessment Audit 06/27/18 15:53:08 Boring Inspector: ALBERTINA Modifier: LONGGA <+> 1 Fire Risk Assessment Complete 06/27/18 15:52:54 Boring Inspector: ALBERTINA Modifier: ALBERTINA <+> 1 Fire Risk Assessment Verified Date/Time [facility] IntraOp General Case Historical Records Administrator 1 Case Information OR OR 02 SJE [...] [place] HV WASHR 10MM SCR ANDRAE Identification [id number] 4.5MM [id number] Description Implant Quantity 1 2 1 Implant Site LEFT PATELLAR TENDON LEFT KNEE LEFT KNEE Implant Identification Model Number Implant Identification Serial Number Implant [id number] Identification Lot Number Implant J&J:Ethicon Dj Surg:Encore Synthes:Synthes [place] Identification Med:[place] Plumbing Hardware Assembler Name: Implant PML 600-15-000 219.91 Identification Catalog Number Implant Size Implant Has an Expiration Date Implant Expiration 10/02/21 08/19/19 Date Wasted Radioactive Material Time Implanted Tissue Implant Continue for Tissue Implant Documentation Tissue Identification Number Graft Prep Per Plumbing Hardware Assembler Instructions: Tissue Preparation Method: Reconstitution Solution: Reconstitution Solution Lot Number Reconstitution Solution Expiration Date: Thawing Solution Thawing Solution Lot Number Thawing Solution Expiration Date Preparation Materials, Other Preparation Materials, Other Lot Number Preparation Materials, Other Expiration Date Tissue Prepared/Processed By Plumbing Hardware Assembler Paperwork Completed Implant Type Comment Last Modified By: MACY SANCHEZ RN LONGSWORTH, GARY, RN LONGSWORTH, GARY, RN 06/27/18 16:00:57 06/27/18 16:27:22 06/27/18 16:43:00 Entry 4 Type Implant (Synthetic) Implant Log Implant Type Hardware Tissue Implant Type Implant SCR [facility] LCP PT [id number] Identification [id number] Description Implant Quantity 1 Implant Site left knee Implant Identification Model Number Implant Identification Serial Number Implant Identification Lot Number Implant Synthes:Synthes [place] Identification Plumbing Hardware Assembler Name: Implant 207.040 Identification Catalog Number Implant Size Implant Has an Expiration Date Implant Expiration Date Wasted Radioactive Material Time Implanted Tissue Implant Continue for Tissue Implant Documentation Tissue Identification Number Graft Prep Per Plumbing Hardware Assembler Instructions: Tissue Preparation Method: Reconstitution Solution: Reconstitution Solution Lot Number Reconstitution Solution Expiration Date: Thawing Solution Thawing Solution Lot Number Thawing Solution Expiration Date Preparation Materials, Other Preparation Materials, Other Lot Number Preparation Materials, Other Expiration Date Tissue Prepared/Processed By Plumbing Hardware Assembler Paperwork Completed Implant Type Comment Last Modified By: TANMAY SU RN 06/27/18 16:59:30 E IntraOp Implant Log Audit 06/27/18 16:59:30 Boring Inspector: LONGGA Modifier: LEINSU <+> 4 Implant Identification Description <+> 4 Implant Identification Plumbing Hardware Assembler Name: <+> 4 Implant Site <+> 4 Implant Quantity <+> 4 Implant Identification Catalog Number <+> 4 Implant Type <+> 4 Type 06/27/18 16:43:00 Boring Inspector: LONGGA Modifier: LONGGA <+> 3 Implant Identification Description <+> 3 Implant Identification Plumbing Hardware Assembler Name: <+> 3 Implant Site <+> 3 Implant Quantity <+> 3 Implant Identification Catalog Number <+> 3 Implant Type <+> 3 Type 06/27/18 16:27:22 Boring Inspector: LONGGA Modifier: LONGGA <+> 2 Implant Identification Description <+> 2 Implant Identification Lot Number <+> 2 Implant Identification Plumbing Hardware Assembler Name: <+> 2 Implant Expiration Date <+> 2 Implant Site <+> 2 Implant Quantity <+> 2 Implant Identification Catalog Number <+> 2 Implant Type <+> 2 Type [facility] [place] Intraoperative Assessment Entry 1 Valid History / Yes Physical in Chart Preoperative Yes Checklist Reviewed/Evaluated Allergies Reviewed Yes Patient is Latex No Sensitive Skin Assessment Yes Verified Present Upon IVs Arrival to OR Last Modified By: MACY SANCHEZ RN 06/27/18 15:55:12 Justo IntraOp Intraoperative Equipment Entry 1 Equipment ID Number [id number] Intraop Monitoring Electrocardiogram Three lead placement (ECG) Electrode Placement Antiembolic Devices Antiembolic Devices Sequential compression device, knee high Antiembolic Device Right Location Antiembolic Device 2235 ID Number Scopes Photo/Video Documentation Last Modified By: MACY SANCHEZ RN 06/27/18 15:57:19 [facility] IntraOp Patient Positioning Entry 1 Procedure [...] Positioned By JONG SANTACRUZ MD-ALLEGRA, TANMAY SU, LISBETH, EBONY JOHNSON, KALPESH, BELEM MURGUIA FA Position Verified Positioning Yes Verified by Anesthesia Positioning Yes Verified by Surgeon Last Modified By: MACY SANCHEZ RN 06/27/18 16:23:39 [facility] IntraOp Patient Positioning Audit 06/27/18 16:23:39 Boring Inspector: LONGGA Modifier: LONGGA 1 <*> Procedure Knee Arthroscopy w Patella Ligament Alexx, Patella Tendon Repair(Left) 06/27/18 16:23:20 Boring Inspector: LONGGA Modifier: LONGGA 1 <*> Procedure [...] Chloraprep Hair Removal Last Modified By: MACY SANCHEZ, LISBETH 06/27/18 16:23:39 [facility] IntraOp Skin Prep Audit 06/27/18 16:23:39 Boring Inspector: LONGGA Modifier: LONGGA 1 <*> Procedure Knee Arthroscopy w Patella Ligament Alexx, Patella Tendon Repair(Left) 06/27/18 16:23:21 Boring Inspector: LONGGA Modifier: LONGGA 1 <*> Procedure [...] [facility] IntraOp Surgical Procedures Audit 06/27/18 18:31:02 Boring Inspector: PINKYAND Modifier: JORDYNBLAND 1 <*> Procedure Patella Tendon Repair 1 <*> Primary Procedure No 06/27/18 18:30:50 Boring Inspector: LONGGA Modifier: JORDYNBLAND <+> 1 Stop 06/27/18 16:23:51 Boring Inspector: LONGGA Modifier: LONGGA Entry 1 was [...] Description LEFT PATELLAR TENDON RECONSTRUCTION 06/27/18 16:23:14 Boring Inspector: LONGGA Modifier: LONGGA <+> 2 Procedure [...] [facility] IntraOp Time Out Audit 06/27/18 16:23:39 Boring Inspector: ALBERTINA Modifier: LONGGA 1 <*> Procedure to be Performed Knee Arthroscopy w Patella Ligament Alexx, Patella Tendon Repair(Left) 06/27/18 16:23:21 Boring Inspector: ALBERTINA Modifier: LONGGA 1 <*> Procedure to be Performed Knee Arthroscopy w Patella Ligament Alexx [facility] IntraOp Tourniquet Entry 1 Type Pneumatic Setting 350 mmHg Pheumatic Yes Tourniquet Checked Per Protocol Size 42 inches Placement Thigh, left upper Skin Protection - Yes Padded Under Cuff Applied By JONG SANTACRUZ MD-ORT Times Start Time 06/27/18 15:44:00 Stop Time 06/27/18 17:45:00 Last Modified By: Ruby Flores RN 06/27/18 17:45:26 [facility] IntraOp Tourniquet Audit 06/27/18 17:45:26 Boring Inspector: CYNDI Modifier: GARY <+> 1 Stop Time 06/27/18 16:56:35 Boring Inspector: CYNDI Modifier: CYNDI <+> 1 Start Time 06/27/18 16:53:25 Boring Inspector: ALBERTINA Modifier: CYNDI <+> 1 Setting <+> 1 Applied By <+> 1 Size Case Comments <None> Finalized By: Vivien Lopez, RN Document Signatures Signed By: Ruby Flores RN 06/27/18 18:37 Vivien Lopez RN 06/28/18 12:38 Unfinalized History Date/Time Username Reason for Unfinalizing Freetext Reason for Unfinalizing 06/28/18 12:36 MONROE Modify Pick List Electronically signed by [facility], [facility] Conversion Inspector Filter Tip Cerner at 07/24/2022 3:54 PM CDT documented in this encounter Plan of Treatment Not on file documented as of this encounter Visit Diagnoses Not on filedocumented in this encounter Care Teams Conductor Symphonic Orchestra Relationship Specialty Start Date End Date Juan José Kendall MD [address] [facility] [address] [place] [address] PCP - General Family Medicine 12/25/22 Juan José Kendall MD [address] [facility] [address] [place] [id number] Referring Physician Family Medicine 12/25/22 documented as of this encounter
--- OUTSIDE RECORDS SUMMARY | 2025-02-22 09:28 | XMS_ITS | Encounter Summary ---
Author Organization [employer] ([place], [place], [place], [place], [place]) Address [address] [place] [address] Care Team Providers Care Final Inspector Balance Wheel Name Role Phone Juan José Kendall MD Primary Care Provider +- [phone] Juan José Kendall MD Unavailable [phone] Encounter Details Date Type Department Care Team (Late st Contact Info) Description 06/27/2018 Transcribed Document [facility] Family Medicine [address] [place] [address] ProviderLaurie MD [address] [place] [address] Social History Tobacco Use Types Packs/Day Years Used Date Smoking Tobacco: Never Assessed Comments Unknown Sex and Gender Information Value Date Recorded Sex Assigned at Not on file Legal Sex Female 2:23 PM CDT Gender Identity Not on file Sexual Orientation Not on file documented as of this encounter Miscellaneous Notes * Cerner Conversion Note - Laurie ProviderMD - 06/27/2018 3:45 PM CDT [facility] Main OR PreOp Summary Primary Physician: JONG SANTACRUZ MD-ORT Finalized Date/Time: 06/27/18 16:21:55 Pt. Name: BAIRON TRUDIRA Morgan Armas.B./Sex: 1955 Female Med Rec #: [id number] Physician: JONG SANTACRUZ MD-ORT Financial #: [id number] Pt. Type: O Room/Bed: Admit/Disch: 06/27/18 03:45:00 - Institution: Deja PreOp Case Times Entry 1 In Preop 06/27/18 11:35:00 Ready for Holding n/a Room Patient Ready for 06/27/18 12:34:00 Surgery Patient Out of Preop 06/27/18 15:07:00 Patient Out of n/a Holding Room Last Modified By: TANMAY BEY RN 06/27/18 16:21:50 Deja PreOp Case Times Audit 06/27/18 16:21:50 Statistical Clerk Advertising: FLOYDSF Modifier: FLOYDSF <+> 1 Patient Out of Preop 06/27/18 12:39:46 Statistical Clerk Advertising: FLOYDSF Modifier: FLOYDSF <+> 1 Patient Ready for Surgery Finalized By: TANMAY BEY, RN Document Signatures Signed By: TANMAY BEY RN 06/27/18 16:21 Electronically signed by [facility] Conversion Er Manager Cerner at 07/24/2022 3:53 PM CDT documented in this encounter Plan of Treatment Not on file documented as of this encounter Visit Diagnoses Not on filedocumented in this encounter Care Teams Final Inspector Balance Wheel Relationship Specialty Start Date End Date Juan José Kendall MD [address] [facility] [address] [place] [id number] PCP - General Family Medicine 12/25/22 Juan José Kendall MD [address] [facility] [address] [place] [id number] Referring Physician Family Medicine 12/25/22 documented as of this encounter
--- OUTSIDE RECORDS SUMMARY | 2025-02-22 09:29 | XMS_ITS | Encounter Summary ---
Author Organization [employer] ([place], [place], [place], [place], [place]) Address [address] [place] [address] Care Team Providers Care Material Handler Floorperson Name Role Phone Juan José Kendall MD Primary Care Provider + [phone] Juan José Kendall MD Unavailable [phone] Encounter Details Date Type Department Care Team (Late st Contact Info) Description 06/27/2018 Transcribed Document [facility] [place] [facility] [place] [address] ProviderLaurie MD [address] [place] [address] Social History Tobacco Use Types Packs/Day Years [...] Performed On: 06/28/2018 12:19 EDT by JAYE MAYFIELD, Case Management-Director Cpg Care Management Note Care Management Note : PT ADMITTED FOR PATELLA TENDON REPAIR AND IS IN STRAIGHT LEG CAST, PT HAS HER WALKER AND BSC, PT STATED SHE IS TO WAIT UNTIL FOLLOW UP APPT AND HAVE CAST REMOVED. PT WILL HAVE P.T. SCHEDULED AT THAT TIME. Documentation Status Complete : Yes JAYE MAYFIELD, Case Management-Director Cpg - 06/28/2018 12:19 EDT Final Discharge Disposition Note-CM Discharge To Care Management : Home/Residential/Fci or Self Care - JAYE MAYFIELD, Case Management-Director Cpg - 06/28/2018 12:19 EDT documented in this encounter Plan of Treatment Not on file documented as of this encounter Visit Diagnoses Not on filedocumented in this encounter Care Teams Material Handler Floorperson Relationship Specialty Start Date End Date Juan José Kendall MD [address] [facility] [address] [place] [address] PCP - General Family Medicine 12/25/22 Juan José Kendall MD [address] [facility] [address] [place] [address] Referring Physician Family Medicine 12/25/22 documented as of this encounter
--- OUTSIDE RECORDS SUMMARY | 2025-02-22 09:29 | XMS_ITS | Encounter Summary ---
Author Organization [employer] ([place], [place], [place], [place], [place]) Address [address] [place] [address] Care Team Providers Care Certified Professional Controller Name Role Phone Juan José Kendall MD Primary Care Provider +- [phone] Juan José Kendall MD Unavailable [phone] Encounter Details Date Type Department Care Team (Late st Contact Info) Description 06/27/2018 Transcribed Document [facility] [place] [address] [place] [address] ProviderLaurie MD [address] [place] [address] Social History Tobacco Use Types Packs/Day Years Used Date Smoking Tobacco: Never Assessed Comments Unknown Sex and Gender Information Value Date Recorded Sex Assigned at Not on file Legal Sex Female 2:23 PM CDT Gender Identity Not on file Sexual Orientation Not on file documented as of this encounter Miscellaneous Notes * Cerner Conversion Note - Laurie ProviderMD - 06/27/2018 9:00 PM CDT Pain [...] filedocumented in this encounter Care Teams Certified Professional Controller Relationship Specialty Start Date End Date Juan José Kendall MD [address] [facility] [address] [place] [address] PCP - General Family Medicine 12/25/22 Juan José Kendall MD [address] [facility] [address] [place] [address] Referring Physician Family Medicine 12/25/22 documented as of this encounter
--- OUTSIDE RECORDS SUMMARY | 2025-02-22 09:30 | XMS_ITS | Encounter Summary ---
Author Organization [employer] ([place], [place], [place], [place], [place]) Address [address] [place] [address] Care Team Providers Care Paediatric Physiotherapist Name Role Phone Juan José Kendall MD Primary Care Provider +- [phone] Juan José Kendall MD Unavailable [phone] Encounter Details Date Type Department Care Team (Late st Contact Info) Description 06/27/2018 Transcribed Document [facility] [place] [address] [place] [address] ProviderLaurie MD [address] [place] [address] Social History Tobacco Use Types Packs/Day Years [...] on filedocumented in this encounter Care Teams Paediatric Physiotherapist Relationship Specialty Start Date End Date Juan José Kendall MD [address] [facility] [address] [place] [address] PCP - General Family Medicine 12/25/22 Juan José Kendall MD [address] [facility] [address] [place] [address] Referring Physician Family Medicine 12/25/22 documented as of this encounter
--- OUTSIDE RECORDS SUMMARY | 2025-02-22 09:30 | XMS_ITS | Encounter Summary ---
Author Organization [employer] ([place], [place], [place], [place], [place]) Address [address] [place] [address] Care Team Providers Care Feather Renovator Name Role Phone Juan José Kendall MD Primary Care Provider +- [phone] Juan José Kendall MD Unavailable [phone] Encounter Details Date Type Department Care Team (Late st Contact Info) Description 06/27/2018 Transcribed Document [facility] [place] Family Medicine [address] [place] [address] ProviderLaurie MD [address] [place] [address] Social History Tobacco Use Types Packs/Day Years Used Date Smoking Tobacco: Never Assessed Comments Unknown Sex and Gender Information Value Date Recorded Sex Assigned at Not on file Legal Sex Female 2:23 PM CDT Gender Identity Not on file Sexual Orientation Not on file documented as of this encounter Miscellaneous Notes * Cerner Conversion Note - Laurie Garcia MD - 06/27/2018 8:58 PM CDT Admission History, [...] Obtained From : Patient Primary Language : Citizen Of [place] Preferred Communication Mode : Verbal Communication Barrier [...] Scale Risk Level : 25-45 Medium Risk [place] Fall Interventions : Adequate lighting, Bed in [...] 30 days) Smokeless Tobacco Status : Never Farheen Macedo Rn - 06/27/2018 20:58 EDT Social [...] Source : Stated Height Entry Format : [place] Height, Feet : 5 ft(Converted to: 152 cm, 60 Inch) Height, Inches : 6 Inch(Converted to: 0 ft 6 Inch, 15.24 cm) Clinical Height : 167.64 cm Weight Source : Standing scale Weight Entry Format : [place] Clinical Dosing Weight : 120.45 kg Weight, Pounds : 265 lb Body Surface Area (BSA) : 2.26 m2 Body Mass Index : 42.9 kg/m2 (>HHI) [place] Body Weight : 59 kg Farheen Macedo [...] - 06/27/2018 20:58 EDT Electronically signed by [facility], [facility] Conversion Rug Scratcher Cerner at 07/24/2022 3:54 PM CDT documented in this encounter Plan of Treatment Not on file documented as of this encounter Visit Diagnoses Not on filedocumented in this encounter Care Teams Feather Renovator Relationship Specialty Start Date End Date Juan José Kendall MD [address] [facility] [address] [place] [phone] PCP - General Family Medicine 12/25/22 Juan José Kendall MD [address] [facility] [address] [place] [id number] Referring Physician Family Medicine 12/25/22 documented as of this encounter
--- OUTSIDE RECORDS SUMMARY | 2025-02-22 09:30 | XMS_ITS | Encounter Summary ---
Author Organization [employer] ([place], [place], [place], [place], [place]) Address [address] [place] [address] Care Team Providers Care Vacuum Pan Tender Name Role Phone Juan José Kendall MD Primary Care Provider +- [phone] Juan José Kendall MD Unavailable [phone] Encounter Details Date Type Department Care Team (Late st Contact Info) Description 06/27/2018 Transcribed Document [facility] [place] [address] [place] [address] ProviderLaurie MD [address] [place] [address] Social History Tobacco Use Types Packs/Day Years [...] Treatment Instructions Ordered By: JONG SANTACRUZ MD-ORJasmine Active Diagnoses : 06/27/2018 00:00 Essential (primary) [...] : WFL Left UE Strength : WFL KIARA FUNK PT - 06/28/2018 9:24 EDT Lower [...] to Sit : Rehab Minimal assistance KIARA UFNK PT - 06/28/2018 9:24 EDT Sit to [...] CMS 0-100% Score : 54.16 % KIARA FUNK PT - 06/28/2018 9:24 EDT Image 1 [...] KIARA FUNK, PT - 06/28/2018 10:26 EDT Care Home Goals Other PT LTG Grid Goal [...] KIARA FUNK, PT - 06/28/2018 10:[address] PT Charges Gait Training Each 15 Min : 1 PT Eval Low Complexity : 1 KIARA FUNK, PT - 06/28/2018 10:26 EDT Electronically signed by Aleks, [facility] Conversion Printed Circuit Board Pcb Designer Cerner at 07/24/2022 4:00 PM CDT documented in this encounter Plan of Treatment Not on file documented as of this encounter Visit Diagnoses Not on filedocumented in this encounter Care Teams Vacuum Pan Tender Relationship Specialty Start Date End Date Juan José Kendall MD [address] [facility] [address] [place] [id number] PCP - General Family Medicine 12/25/22 Juan José Kendall MD [address] [facility] [address] [place] [id number] Referring Physician Family Medicine 12/25/22 documented as of this encounter
--- OUTSIDE RECORDS SUMMARY | 2025-02-22 09:30 | XMS_ITS | Encounter Summary ---
Author Organization [employer] ([place], [place], [place], [place], [place]) Address [address] [place] [address] Care Team Providers Care Dealer Support Technician Name Role Phone Juan José Kendall MD Primary Care Provider +- [phone] Juan José Kendall MD Unavailable [phone] Encounter Details Date Type Department Care Team (Late st Contact Info) Description 06/27/2018 Transcribed Document [facility] [place] Medicine [address] [place] [address] Laurie Garcia MD [address] [place] [address] Social History Tobacco Use Types Packs/Day Years [...] Source : Stated Height Entry Format : [place] Height, Feet : 5 ft(Converted to: 152 cm, 60 Inch) Height, Inches : 6 Inch(Converted to: 0 ft 6 Inch, 15.24 cm) Clinical Height : 167.64 cm Weight Source : Standing scale Weight Entry Format : [place] Clinical Dosing Weight : 120.45 kg Weight, Pounds : 265 lb Body Surface Area (BSA) : 2.26 m2 Body Mass Index : 42.9 kg/m2 (>HHI) [place] Body Weight : 59 kg TANMAY BEY [...] Obtained From : Patient Primary Language : Bulgarian Preferred Communication Mode : Verbal Communication Barrier [...] Years Old : Yes Gender Male : TANMAY Segura RN - 06/27/2018 12:15 EDT Cain Scale [...] Scale Risk Level : 0-24 Low Risk [place] Fall Interventions : Assistive devices within reach, [...] on filedocumented in this encounter Care Teams Dealer Support Technician Relationship Specialty Start Date End Date Juan José Kendall MD [address] [facility] [address] [place] [id number] PCP - General Family Medicine 12/25/22 Juan José Kendall MD [address] [place] [address] [address] [place] [id number] Referring Physician Family Medicine 12/25/22 documented as of this encounter
--- OUTSIDE RECORDS SUMMARY | 2025-02-22 09:31 | XMS_ITS | Encounter Summary ---
Author Organization [employer] ([place], [place], [place], [place], [place]) Address [address] [place] [address] Care Team Providers Care Air Quality Technician Name Role Phone Juan José Kendall MD Primary Care Provider +- [phone] Juan José Kendall MD Unavailable [phone] Encounter Details Date Type Department Care Team (Late st Contact Info) Description 06/27/2018 Transcribed Document [facility] [place] [address] [place] [address] ProviderLaurie MD [address] [place], [place] [address] Social History Tobacco Use Types Packs/Day Years [...] Assistive Devices Brace VALENTINA RETANA OTR/L - 06/28/2018 11:42 EDT General Status Patient [...] Treatment Time : 18 Minute(s) VALENTINA RETANA OTR/L - 06/28/2018 11:42 EDT History and Environment, OT Living Situation, Therapy : Home Patient Lives With : Spouse Persons Assisting Patient at Home : Spouse Professional Skilled Services : None Persons Providing Information : Patient, Child/Children Home Equipment, Therapy : ADL Equipment, Board, slide, Commode, Walker, Wheelchair ADL Equipment : Car Changer Commode : Commode, bedside, Toilet seat, elevated Walker : Walker, front wheel Wheelchair : Wheelchair, standard Home Setup : One story Stairs : Yes Stair Location(s) : Outside Outside Stairs, Number of Steps : 1 VALENTINA RETANA OTR/L - 06/28/2018 11:42 EDT Prior LOF Bathing, [...] LOF for IADLs, OT : Assist needed LAINEYVALENTINA WRIGHT OTR/Ivan 06/28/2018 11:42 EDT Upper Extremity Upper Extremity Dominance : Right Right UE Active ROM : WFL Right UE Strength : WFL Left UE Active ROM : WFL Left UE Strength : WFL Upper Extremity Strength Impaired : No Fine Motor Coordination Impaired : No VALENTINA RETANA OTR/Ivan Orozco 06/28/2018 11:42 EDT Self Care/Home Management, OT Self Feeding Assist Level, OT : Independent, complete Grooming Assist Level, OT : Independent, complete Bathing Assist Level, OT : Assist, minimal Upper Body Dressing Assist Level, OT : Independent, complete Lower Body Dressing Assist Level, OT : Assist, minimal Toileting Assist Level : Assist, minimal Toileting Device : [id number]-[id number] commode Toilet Transfer Assist Level : Assist, minimal Toilet Transfer Device : Belt, gait, Walker, rolling, Behlz-wm-erg commode VALENTINA RETANA OTR/Ivan 06/28/2018 11:42 EDT Mobility Device/Prosthesis/Wt Bearing Weight Bearing Status Maintained : Yes Weight Bearing Status : As tolerated Functional Mobility Device : Gait belt, Walker, front wheel Prosthetic with Functional Mobility : cast to Left LE. VALENTINA RETANA OTR/Ivan 06/28/2018 11:42 EDT Functional Mobility Mobility Grid Supine to Sit : Rehab Minimal assistance Sit to Stand : Rehab Minimal assistance Bed to Chair : Rehab Minimal assistance Stand to Sit : Rehab Minimal assistance VALENTINA RETANA OTR/Ivan 06/28/2018 11:42 EDT AM PAC Daily Activity [...] 0-100% Score : 32.79 % VALENTINA RETANA OTR/Ivan Orozco 06/28/2018 11:42 EDT Image 3 - Images currently included in the form version of this document have not been included in the text rendition version of the form. Activity Tolerance, OT Activity Comment : GOOD VALENTINA RETANA OTR/Ivan Orozco 06/28/2018 11:42 EDT Cognition Assessment, OT Orientation : Oriented x 4 VALENTINA RETANA OTR/Ivan 06/28/2018 11:42 EDT Education OT Occupational Therapy Education Grid Activity of Daily Living Training : Verbalizes understanding, Returns demonstration Functional Mobility Training : Verbalizes understanding, Returns demonstration Home Safety : Verbalizes understanding Role of Occupational Therapy : Verbalizes understanding VALENTINA RETANA OTR/Ivan Orozco 06/28/2018 11:42 EDT Indication Assessment, OT Occupational Therapy Indicated : No Occupational Therapy Not Indicated : Other: Pt is scheduled to DC home today. VALENTINA RETANA OTR/L - 06/28/2018 11:42 EDT Plan of Care, OT OT Tx Plan/Goals Established w Patient : No Reason OT Treatment/Plan Not Established : see OT eval Plan of Care Comment, OT : see OT eval VALENTINA RETANA OTR/Ivan 06/28/2018 11:42 EDT Treatment Note Subjective Comment [...] Comment : nurse aware VALENTINA RETANA OTR/Ivan Orozco 06/28/2018 11:42 EDT Image 1 - Images currently included in the form version of this document have not been included in the text rendition version of the form. Anticipated Discharge Needs, OT/PT Anticipated Discharge to OT : Other: to be determined. Recommend Continued Therapy at Discharge : Yes VALENTINA RETANA OTR/Ivan Orozco 06/28/2018 11:42 EDT [place] OT Charges OT Selfcare/Hm Mgmt Ea 15 Min : 1 OT Eval Low Complexity : 1 VALENTINA RETANA, OTR/L - 06/28/2018 11:42 EDT Electronically signed by [facility], [facility] Conversion Comic Book Artist Cerner at 07/24/2022 3:50 PM CDT documented in this encounter Plan of Treatment Not on file documented as of this encounter Visit Diagnoses Not on filedocumented in this encounter Care Teams Air Quality Technician Relationship Specialty Start Date End Date Juan José Kendall MD [address] [facility] [address] [place] [phone] PCP - General Family Medicine 12/25/22 Juan José Kendall MD [address] [place] [address] [place] [phone] Referring Physician Family Medicine 12/25/22 documented as of this encounter
--- OUTSIDE RECORDS SUMMARY | 2025-02-22 09:31 | XMS_ITS | Encounter Summary ---
Author Organization [employer] ([place], [place], [place], [place], [place]) Address [address] [place] [address] Care Team Providers Care Delinquent Tax Collection Assistant Name Role Phone Juan José Kendall MD Primary Care Provider + [phone] Juan José Kendall MD Unavailable [phone] Encounter Details Date Type Department Care Team (Late st Contact Info) Description 06/27/2018 Transcribed Document [facility] [place] [facility] [place] [address] Laurie Garcia MD [address] [place] [address] Social History Tobacco Use Types Packs/Day Years [...] mL inj 40 mg 0.4 mL, SubCutaneous, [id number] gabapentin 300 mg cap 300 mg 1 [...] mg cap 75 mg 1 Cap, Oral, [id number] ropivacaine 0.5% inj 20 mL 30 mL, [...] Oral, Q4H phenol 1.4% throat spray 5 [place], Oral, Q2H scopolamine 1.5 mg/72 hr patch [...] swelling, No deformity, Normal gait. Integumentary: Warm, Ismay, Intact, No pallor, No rash, WOUND STABLE. [...] hour. ACT: CONSULT PT/OT as per Dr. rodo leija. For urinary retention use bladder scanner, you may anchor FC. If no or low UOP you may give 250 mL NS IV over one hour. AM Labs BMP & Hgb/HCT. If pt. spikes fever > 101* F, encourage pt to use Respirex first, then you may give Tylenol 650 mg PO/NH x 1. If no response in 2 [...] on filedocumented in this encounter Care Teams Delinquent Tax Collection Assistant Relationship Specialty Start Date End Date Juan José Kendall MD [address] [place] [id number] PCP - General Family Medicine 12/25/22 Juan José Kendall MD [address] [place] [facility] [address] [place] [phone] Referring Physician Family Medicine 12/25/22 documented as of this encounter
--- OUTSIDE RECORDS SUMMARY | 2025-02-22 09:31 | XMS_ITS | Encounter Summary ---
Author Organization [employer] ([place], [place], [place], [place], [place]) Address [address] [place] [address] Care Team Providers Care Plant Health Manager Name Role Phone Juan José Kendall MD Primary Care Provider + [phone] Juan José Kendall MD Unavailable [phone] Encounter Details Date Type Department Care Team (Late st Contact Info) Description 10/05/2018 Transcribed Document [facility] [place] [address] [place] [address] ProviderLaurie MD [address] [place] [address] Social History Tobacco Use Types Packs/Day Years [...] On: 10/05/2018 3:00 EDT by Nery Mckee Business Account Leader Nutrition Assessment Nutrition Assessment Reason : Follow Up Current Nutrition Regimen Comment : 10/05: Pt intakes remain the same-continue to encourage supplement use for wound healing. Plans for snf this am per MD note. 09/30: pt [...] - 10/05/2018 9:06 EDT Electronically signed by Aleks, [facility] Conversion Examining Chair Assembler Cerner at 07/24/2022 3:47 PM CDT documented in this encounter Plan of Treatment Not on file documented as of this encounter Visit Diagnoses Not on filedocumented in this encounter Care Teams Plant Health Manager Relationship Specialty Start Date End Date Juan José Kendall MD [address] [facility] [address] [place] [phone] PCP - General Family Medicine 12/25/22 Juan José Kendall MD [address] [facility] [address] [place] [phone] Referring Physician Family Medicine 12/25/22 documented as of this encounter
--- OUTSIDE RECORDS SUMMARY | 2025-02-22 09:32 | XMS_ITS | Encounter Summary ---
Author Organization [employer] ([place], [place], [place], [place], [place]) Address [address] [place] [address] Care Team Providers Care Overedge Sewer Name Role Phone Juan José Kendall MD Primary Care Provider + [phone] Juan José Kendall MD Unavailable [phone] Encounter Details Date Type Department Care Team (Late st Contact Info) Description 10/05/2018 Transcribed Document [facility] [place] [facility] [place] [address] Laurie Garcia MD [address] [place] [address] Social History Tobacco Use Types Packs/Day Years [...] inj 4 mg 2 mL, IV Push, [id number] pantoprazole EC 40 mg tab 40 mg [...] function, blood glucose, and urine output. [facility] documented in this encounter Plan of Treatment Not on file documented as of this encounter Visit Diagnoses Not on filedocumented in this encounter Care Teams Overedge Sewer Relationship Specialty Start Date End Date Juan José Kendall MD [address] [facility] [address] [place] [phone] PCP - General Family Medicine 9/22/23 Juan José Kendall MD [address] [facility] [address] [place] [phone] Referring Physician Family Medicine 12/25/22 documented as of this encounter
--- OUTSIDE RECORDS SUMMARY | 2025-02-22 09:32 | XMS_ITS | Encounter Summary ---
Author Organization [employer] ([place], [place], [place], [place], [place]) Address [address] [place] [address] Care Team Providers Care Optical Laboratory Technician Name Role Phone Juan José Kendall MD Primary Care Provider + [phone] Juan José Kendall MD Unavailable [phone] Encounter Details Date Type Department Care Team (Late st Contact Info) Description 10/05/2018 Transcribed Document [facility] [place] [facility] [place] [address] ProviderLaurie MD [address] [place] [address] Social History Tobacco Use Types Packs/Day Years [...] tunneled catheter removal Procedural MD: Dr. Cabrera Periodicals Clerk: Julian Calero PA-C Sedation: None Findings: Successful removal of right tunneled catheter Complications: No immediate EBL: <1mL Specimen(s) Removed: None Full report to follow. documented in this encounter Plan of Treatment Not on file documented as of this encounter Visit Diagnoses Not on filedocumented in this encounter Care Teams Optical Laboratory Technician Relationship Specialty Start Date End Date Juan José Kendall MD [address] [facility] [address] [place] [phone] PCP - General Family Medicine 12/25/22 Juan José Kendall MD [address] [facility] [address] [place] [phone] Referring Physician Family Medicine 12/25/22 documented as of this encounter
--- OUTSIDE RECORDS SUMMARY | 2025-02-22 09:32 | XMS_ITS | Encounter Summary ---
Author Organization [employer] ([place], [place], [place], [place], [place]) Address [address] [place] [address] Care Team Providers Care Curriculum And Assessment Coordinator Name Role Phone Juan José Kendall MD Primary Care Provider +- [phone] Juan José Kendall MD Unavailable [phone] Encounter Details Date Type Department Care Team (Late st Contact Info) Description 10/05/2018 Transcribed Document [facility] [place] [address] [place] [address] ProviderLaurie MD [address] [place] [address] Social History Tobacco Use Types Packs/Day Years [...] 57% x 7 LBM: 10/02 Nery Mckee Project Architect - 10/05/2018 8:56 EDT documented in this encounter Plan of Treatment Not on file documented as of this encounter Visit Diagnoses Not on filedocumented in this encounter Care Teams Curriculum And Assessment Coordinator Relationship Specialty Start Date End Date Juan José Kendall MD [address] [facility] [address] [place] [phone] PCP - General Family Medicine 12/25/22 Juan José Kendall MD [address] [facility] [address] [place] [phone] Referring Physician Family Medicine 12/25/22 documented as of this encounter
--- OUTSIDE RECORDS SUMMARY | 2025-02-22 09:32 | XMS_ITS | Encounter Summary ---
Author Organization [employer] ([place], [place], [place], [place], [place]) Address [address] [place] [address] Care Team Providers Care Esol Teacher Name Role Phone Juan José Kendall MD Primary Care Provider + [phone] Juan José Kendall MD Unavailable [phone] Encounter Details Date Type Department Care Team (Late st Contact Info) Description 10/05/2018 Transcribed Document [facility] [place] [facility] [place] [address] ProviderLaurie MD [address] [place] [address] Social History Tobacco Use Types Packs/Day Years Used Date Smoking Tobacco: Never Assessed Comments Unknown Sex and Gender Information Value Date Recorded Sex Assigned at Not on file Legal Sex Female 2:23 PM CDT Gender Identity Not on file Sexual Orientation Not on file documented as of this encounter Miscellaneous Notes * Cerner Conversion Note - Laurie ProviderMD - 10/05/2018 11:26 AM CDT Care Management Assessment/Plan Entered On: 10/05/2018 11:30 EDT Performed On: 10/05/2018 11:26 EDT by PJ NELSON Care Management Note Care Management Note : 10/05/2018 [facility], jermianewcarrol marinelli to get her tomorrow. Dr. Porter notified, and in agreement. Accepting physician Dr. Ordonez. Call report to [phone]. Fax DC summary to [phone]. [facility] transport scheduled for 10/06/2018 @ 1300. Care Management Note Report : NELSON, PJ 10/05/18 08:54:39 10/05/2018 Clinical review faxed to [facility] ([phone]) to request coverage for continued LTACH services. Approval pending. Auth# [id number]. LESLIE PJ 10/05/18 08:47:08 Patient/ chose [facility]. Per Ashley, insurance preauth was started, awaiitng response. PJ NELSON 10/04/18 10:04:33 10/04/2018 Bed offer received from [facility]. Family notified,now requesting to reconsider [facility]. I have explained that we need an answer for which place the prefer so that we can move forward with placement. states he will call both facilities, and they will make a decision. PJ NELSON 10/03/18 15:02:06 10/03/2018 Spoke with [facility], they do not have a contract with [facility]. PJ NELSON 10/03/18 14:57:34 10/03/2018 Call received from [facility], they are unable to offer a bed for this patient. Patient and notified. They request a referral be faxed to [facility] (P: [phone] F: [phone]), faxed per their request. Awaiting a call [...] be close to her home in [place]. Referrals faxed to Debbie Patricia (Signature liaison), [facility], [facility], and [facility]. Awaiting a call back. PJ NELSON - 09/28/18 16:26:43 09/28/2018 Fax recieved from [facility] with approval for LTACH services 09/29-10/04. Auth# [id number]. Fax next clinical review to [phone] on 10/05/2018. PJ NELSON - 09/28/18 08:24:24 09/28/2018 Clinical review faxed to [facility] ([phone]) to request coverage for continued LTACH services. Approval pending. Auth# [id number]. PJ NELSON - 09/21/18 15:48:14 09/21/2018 Fax recieved from [facility] with approval for LTACH coverage 09/22/2018-09/28/2018. Auth# [id number]. Fax next clinical review to [phone] on 09/28/2018. PJ NELSON - 09/21/18 08:22:57 09/21/2018 Clinical review faxed to [facility] ([phone]) to request coverage for continued LTACH services. Approval pending. Auth# [id number]. PJ NELSON - 09/15/18 11:34:17 09/15/2018 Fax recieved from [facility] with approval for LTACH services 09/15-09/21/2018. Auth# [id number]. Fax next clinical review to [phone] on 09/21/2018. PJ NELSON - 09/14/18 08:28:49 09/14/2018 Clinical review faxed to [facility] ([phone]) to request coverage for continued LTACH services. Approval pending. Auth# [id number]. Chuyita Briceno, Clinical Assessment Liaison - 09/09/18 [...] [facility]- Orthopedic- Dr. Shay Guerrero [facility]- - [facility] SNF- [facility] Natalia The patient does wish to return home upon discharge but understands that rehab/SNF may be needed. All papers were explained and signed. No other issues. CM will continue to monitor. Documentation Status Complete : Yes PJ NELSON - 10/05/2018 11:26 EDT Electronically signed by Aleks [facility] Conversion Shellfish Harvester Cerner at 07/24/2022 3:49 PM CDT documented in this encounter Plan of Treatment Not on file documented as of this encounter Visit Diagnoses Not on filedocumented in this encounter Care Teams Esol Teacher Relationship Specialty Start Date End Date Juan José Kendall MD [address] [facility] [address] [place] [phone] PCP - General Family Medicine 12/25/22 Juan José Kendall MD [address] [facility] [address] [place] [phone] Referring Physician Family Medicine 12/25/22 documented as of this encounter
--- OUTSIDE RECORDS SUMMARY | 2025-02-22 09:32 | XMS_ITS | Encounter Summary ---
Author Organization [employer] ([place], [place], [place], [place], [place]) Address [address] [place] [address] Care Team Providers Care Civil Engineering Intern Name Role Phone Juan José Kendall MD Primary Care Provider +- [phone] Juan José Kendall MD Unavailable [phone] Encounter Details Date Type Department Care Team (Late st Contact Info) Description 10/05/2018 Transcribed Document [facility] [place] [address] [place] [address] ProviderLaurie MD [address] [place] [address] Social History Tobacco Use Types Packs/Day Years [...] Management Note : 10/05/2018 Fax received from [facility] with approval for 10/05/2018, with anticipated DC date of tomorrwo, 10/06/2018. Auth# [id number]. Care Management Note Report : CHAYITO CHARLES RN - 10/05/18 13:15:03 Chayito Charles spoke [...] NELSON 10/05/18 11:30:14 10/05/2018 Call received from [facility], they have received the insurance authorization for admission, milton marinelli to get her tomorrow. Dr. Porter notified, and in agreement. Accepting physician Dr. Ordonez. Call report to [phone]. Fax DC summary to [phone]. Caliber transport scheduled for 10/06/2018 @ 1300. PJ NELSON 10/05/18 08:54:39 10/05/2018 Clinical review faxed to [facility] ([phone]) to request coverage for continued LTACH services. Approval pending. Auth# [id number]. PJ NELSON 10/05/18 08:47:08 Patient/ chose [facility]. Per [facility], insurance preauth was started, awaiitng response. PJ NELSON 10/04/18 10:04:33 10/04/2018 Bed offer received from [facility]. Family notified,now requesting to reconsider [place]. I have explained that we need an [...] They request a referral be faxed to [facility] (P: [phone] F: [phone]), faxed per their request. Awaiting a call back. PJ NELSON 10/03/18 13:54:20 10/03/2018 Bev Lewis, here to evaluate patient for possible bed placement. PJ NELSON 10/03/18 09:57:17 10/03/2018 Jose, clinical liaison Zach Donohue, coming to the unit to eval patient for possible bed placement. Updates faxed per their request. PJ NELSNO 09/29/18 16:38:16 09/29/2018 Per ID, abx therapy to stop 10/05/2018. Patient states she is open to rehab, but prefers it be close to her home in [place]. Referrals faxed to Debbie Patricia (Signature liaison), Zach Au, and Ron. Awaiting a call back. PJ NELSON - 09/28/18 16:26:43 09/28/2018 Fax recieved from [facility] with approval for LTACH services 09/29-10/04. Auth# [id number]. Fax next clinical review to [phone] on 10/05/2018. PJ NELSON 09/28/18 08:24:24 09/28/2018 Clinical review faxed to [facility] ([phone]) to request coverage for continued LTACH services. Approval pending. Auth# [id number]. PJ NELSON 09/21/18 15:48:14 09/21/2018 Fax recieved from [facility] with approval for LTACH coverage 09/22/2018-09/28/2018. Auth# [id number]. Fax next clinical review to [phone] on 09/28/2018. PJ NELSON - 09/21/18 08:22:57 09/21/2018 Clinical review faxed to [facility] ([phone]) to request coverage for continued LTACH services. Approval pending. Auth# [id number]. PJ NELSON - 09/15/18 11:34:17 09/15/2018 Fax recieved from [facility] with approval for LTACH services 09/15-09/21/2018. Auth# [id number]. Fax next clinical review to [phone] on 09/21/2018. PJ NELSON - 09/14/18 08:28:49 09/14/2018 Clinical review faxed to [facility] ([phone]) to request coverage for continued LTACH services. Approval pending. Auth# [id number]. Chuyita Briceno, Clinical Assessment Liaison - 09/09/18 [...] SNF. She has previously used [facility] and prefers to use them again if needed. The patient owns a shower chair, BSC and w/c. The patient has never needed a dialysis clinic. The patient has not fallen in the past 3 months. PCP- Dr. Ranjeet [facility]- Orthopedic- Dr. Shay Guerrero [facility]- - [facility] SNF- [facility] [place] The patient does wish to [...] on filedocumented in this encounter Care Teams Civil Engineering Intern Relationship Specialty Start Date End Date Juan José Kendall MD [address] [facility] [address] [place] [address] PCP - General Family Medicine 12/25/22 Juan José Kendall MD [address] [facility] [address] [place] [address] Referring Physician Family Medicine 12/25/22 documented as of this encounter
--- OUTSIDE RECORDS SUMMARY | 2025-02-22 09:32 | XMS_ITS | Encounter Summary ---
Author Organization [employer] ([place], [place], [place], [place], [place]) Address [address] [place] [address] Care Team Providers Care Pricing Director Name Role Phone Juan José Kendall MD Primary Care Provider +- [phone] Juan José Kendall MD Unavailable [phone] Encounter Details Date Type Department Care Team (Late st Contact Info) Description 10/05/2018 Transcribed Document [facility] [place] [address] [place] [address] ProviderLaurie MD [address] [place] [address] Social History Tobacco Use Types Packs/Day Years [...] on filedocumented in this encounter Care Teams Pricing Director Relationship Specialty Start Date End Date Juan José Kendall MD [address] [facility] [address] [place] [id number] PCP - General Family Medicine 12/25/22 Juan José Kendall MD [address] [place] [address] [address] [place] [phone] Referring Physician Family Medicine 12/25/22 documented as of this encounter
--- OUTSIDE RECORDS SUMMARY | 2025-02-22 09:32 | XMS_ITS | Encounter Summary ---
Author Organization [employer] ([place], [place], [place], [place], [place]) Address [address] [place] [address] Care Team Providers Care Mold Bunch Trimmer Name Role Phone Juan José Kendall MD Primary Care Provider +- [phone] Juan José Kendall MD Unavailable [phone] Encounter Details Date Type Department Care Team (Late st Contact Info) Description 10/05/2018 Transcribed Document [facility] [place] [address] [place] [address] ProviderLaurie MD [address] [place] [address] Social History Tobacco Use Types Packs/Day Years [...] 75 (OCT 05 10:50) MAP 81 (OCT 04 23:00) 81 (OCT 04 23:00) 85 (OCT 04 15:35) SpO2 97 (OCT 05 10:50) 95 (OCT [...] Last dose of vancomycin given this am. Chayo removed today. Pt to discharge tomorrow off abx. No further need for therapeutic drug monitoring. Pharmacy will sign off, please re-consult if needed. Thank you for the consultation, Bethany Mo PharmD documented in this encounter Plan of Treatment Not on file documented as of this encounter Visit Diagnoses Not on filedocumented in this encounter Care Teams Mold Bunch Trimmer Relationship Specialty Start Date End Date Juan José Kendall MD [address] [facility] [address] [place] [address] PCP - General Family Medicine 12/25/22 Juan José Kendall MD [address] [facility] [address] [place] [address] Referring Physician Family Medicine 12/25/22 documented as of this encounter
--- OUTSIDE RECORDS SUMMARY | 2025-02-22 09:33 | XMS_ITS | Encounter Summary ---
Author Organization [employer] ([place], [place], [place], [place], [place]) Address [address] [place] [address] Care Team Providers Care Svp Group Director Name Role Phone Juan José Kendall MD Primary Care Provider + [phone] Juan José Kendall MD Unavailable [phone] Encounter Details Date Type Department Care Team (Late st Contact Info) Description 10/05/2018 Transcribed Document [facility] [place] [address] [place] [address] Laurie Garcia MD [address] [place] [address] Social History Tobacco Use Types Packs/Day Years Used Date Smoking Tobacco: Never Assessed Comments Unknown Sex and Gender Information Value Date Recorded Sex Assigned at Not on file Legal Sex Female 2:23 PM CDT Gender Identity Not on file Sexual Orientation Not on file documented as of this encounter Miscellaneous Notes * Cerner Conversion Note - Laurie Garcia MD - 10/05/2018 12:58 PM CDT Care Management [...] was okay with her going to a retirement facility and following up with Dr. Robles in 3 weeks then he would see her after that. Care Management Note Report : PJ NELSON 10/05/18 11:30:14 10/05/2018 Call received from [facility], they have received the insurance authorization for admission, jermaineyasmeencarrol marinelli to get her tomorrow. Dr. Porter notified, and in agreement. Accepting physician Dr. Ordonez. Call report to [phone]. Fax DC summary to [phone]. Caliber transport scheduled for 10/06/2018 @ [facility]. RASHEED NELSONKATHIEris - 10/05/18 08:54:39 10/05/2018 Clinical review faxed to [facility] ([phone]) to request coverage for continued LTACH services. Approval pending. Auth# [id number]. RASHEED NELSONKATHIEris - 10/05/18 08:47:08 Patient/ chose [facility]. Per Ashley, insurance preauth was started, awaiitng response. RASHEED NELSONRALPH 10/04/18 10:04:33 10/04/2018 Bed offer received from [facility]. Family notified,now requesting to reconsider [place]. I have explained that we need an answer for which place the prefer so that we can move forward with placement. states he will call both facilities, and they will make a decision. LESLIE PJ - 10/03/18 15:02:06 10/03/2018 Spoke with [facility], they do not have a contract with [place]. NELSON PJ 10/03/18 14:57:34 10/03/2018 Call received from [facility], they are unable to offer a bed for this patient. Patient and notified. They request a referral be faxed to [facility] (P: [phone] F: [phone]), faxed per their request. Awaiting a call back. PJ NELSON 10/03/18 13:54:20 10/03/2018 Bev Lewis, espinoza to evaluate patient for possible bed placement. PJ NELSON 10/03/18 09:57:17 10/03/2018 Jose, clinical liaison Zach Donohue, coming to the unit to eval patient for possible bed placement. Updates faxed per their request. PJ NELSON 09/29/18 16:38:16 09/29/2018 Per ID, abx therapy to stop 10/05/2018. Patient states she is open to rehab, but prefers it be close to her home in [place]. Referrals faxed to Debbie Patricia (Signature liaison), [facility], Zach Donohue, and Ron. Awaiting a call back. PJ NELSON 09/28/18 16:26:43 09/28/2018 Fax recieved from [facility] with approval for LTACH services 09/29-10/04. Auth# [id number]. Fax next clinical review to [phone] on 10/05/2018. JP NELSON 09/28/18 08:24:24 09/28/2018 Clinical review faxed to [facility] ([phone]) to request coverage for continued LTACH services. Approval pending. Auth# [id number]. PJ NELSON 09/21/18 15:48:14 09/21/2018 Fax recieved from [facility] with approval for LTACH coverage 09/22/2018-09/28/2018. Auth# [id number]. Fax next clinical review to [phone] on 09/28/2018. PJ NELSON 09/21/18 08:22:57 09/21/2018 Clinical review faxed to [facility] ([phone]) to request coverage for continued LTACH services. Approval pending. Auth# [id number]. PJ NELSON 09/15/18 11:34:17 09/15/2018 Fax recieved from [facility] with approval for LTACH services 09/15-09/21/2018. Auth# [id number]. Fax next clinical review to [phone] on 09/21/2018. PJ NELSON - 09/14/18 08:28:49 09/14/2018 [facility][phone][facility] to request coverage for continued LTACH services. Approval pending. Auth# [id number]. Chuyita Briceno, Clinical Assessment Liaison - 09/09/18 [...] unit or SNF. She has previously used [facility] and prefers to use them again if needed. The patient owns a shower chair, BSC and w/c. The patient has never needed a dialysis clinic. The patient has not fallen in the past 3 months. PCP- Dr. Ranjeet [facility]- Orthopedic- Dr. Shay Guerrero [facility]- - [facility]- [facility] [place] The patient does wish to return home upon discharge but understands that rehab/SNF may be needed. All papers were explained and signed. No other issues. CM will continue to monitor. Documentation Status Complete : Yes CHAYITO CHARLES, LISBETH - 10/05/2018 12:58 EDT documented in this encounter Plan of Treatment Not on file documented as of this encounter Visit Diagnoses Not on filedocumented in this encounter Care Teams Svp Group Director Relationship Specialty Start Date End Date Juan José Kendall MD [address] [place] [facility] [address] [place] [address] PCP - General Family Medicine 12/25/22 Juan José Kendall MD [address] [place] [facility] [address] [place] [address] Referring Physician Family Medicine 12/25/22 documented as of this encounter
--- OUTSIDE RECORDS SUMMARY | 2025-02-22 09:33 | XMS_ITS | Encounter Summary ---
Author Organization [employer] ([place], [place], [place], [place], [place]) Address [address] [place] [address] Care Team Providers Care Silk Screen Painter Name Role Phone Juan José Kendall MD Primary Care Provider +- [phone] Juan José Kendall MD Unavailable [phone] Encounter Details Date Type Department Care Team (Late st Contact Info) Description 10/05/2018 Transcribed Document [facility] [place] Family Medicine [address] [place] [address] ProviderLaurie MD [address] [place] [address] Social History Tobacco Use Types Packs/Day Years [...] EDT Pain Scale Intensity : 0 Anna Lowe, Rn - 10/05/2018 23:10 EDT Image 4 - Images currently included in the form version of this document have not been included in the text rendition version of the form. documented in this encounter Plan of Treatment Not on file documented as of this encounter Visit Diagnoses Not on filedocumented in this encounter Care Teams Silk Screen Painter Relationship Specialty Start Date End Date Juan José Kendall MD [address] [place] [facility] [address] [place] [address] PCP - General Family Medicine 12/25/22 Juan José Kendall MD [address] [place] [facility] [address] [place] [address] Referring Physician Family Medicine 12/25/22 documented as of this encounter
--- OUTSIDE RECORDS SUMMARY | 2025-02-22 09:33 | XMS_ITS | Encounter Summary ---
Author Organization [employer] ([place], [place], [place], [place], [place]) Address [address] [place] [address] Care Team Providers Care Machinist Helper Marine Name Role Phone Juan José Kendall MD Primary Care Provider +- [phone] Juan José Kendall MD Unavailable [phone] Encounter Details Date Type Department Care Team (Late st Contact Info) Description 10/05/2018 Transcribed Document [facility] [place] [facility] [place] [address] ProviderLaurie MD [address] [place] [address] Social History Tobacco Use Types Packs/Day Years Used Date Smoking Tobacco: Never Assessed Comments Unknown Sex and Gender Information Value Date Recorded Sex Assigned at Not on file Legal Sex Female 2:23 PM CDT Gender Identity Not on file Sexual Orientation Not on file documented as of this encounter Miscellaneous Notes * Cerner Conversion Note - Historical ProviderMD - 10/05/2018 7:12 AM CDT Patient: [...] repair. She was more recently admitted to [facility] x2 earlier this month on [...] care. She was transferred to [facility] for a higher level [...] the antibiotics without any adverse side effects. [place] removed yesterday at her incision site remains [...] Guerrero would like her to see an senior education specialist at after her discharge from here. [...] HTN Cancer Social History: . lives in [place]. No tobacco, ETOH, or illicit drug use. [...] 09:43) 85 (OCT 04 09:43) Mon HR 80 (OCT 04 23:00) 71 (OCT 04:35) 80 (OCT 04 23:00) Resp Rate 20 (OCT 04 23:00) 16 (OCT 04:35) 20 (OCT 04:00) SBP H 148 (OCT 04 23:00) H 147 (OCT 04:35) H 151 (OCT 04:00) DBP 63 (OCT 04 23:00) 63 (OCT 04 23:00) 71 (OCT 04:00) MAP 81 (OCT 04 23:00) 81 (OCT 04 23:00) 85 (OCT 04 15:35) SpO2 95 (OCT 04 23:00) 95 [...] filedocumented in this encounter Care Teams Machinist Helper Marine Relationship Specialty Start Date End Date Juan José Kendall MD [address] [facility] [address] [place] [id number] PCP - General Family Medicine 12/25/22 Juan José Kendall MD [address] [facility] [address] [place] [address] Referring Physician Family Medicine 12/25/22 documented as of this encounter
--- OUTSIDE RECORDS SUMMARY | 2025-02-22 09:33 | XMS_ITS | Encounter Summary ---
Author Organization [employer] ([place], [place], [place], [place], [place]) Address [address] [place] [address] Care Team Providers Care General Education Instructor Name Role Phone Juan José Kendall MD Primary Care Provider + [phone] Juan José Kendall MD Unavailable [phone] Encounter Details Date Type Department Care Team (Late st Contact Info) Description 10/06/2018 Transcribed Document [facility] [place] [facility] [place] [address] Laurie Garcia MD [address] [place] [address] Social History Tobacco Use Types Packs/Day Years [...] doing well until she was transferred to [facility] from local hospital, [facility], with left hip prosthesis infection and was taken to the OR by Dr. Guerrero and underwent left prosthetic knee infection.(More details please see H&P). At [facility] patient was admitted with altered mental status [...] excellent nursing care she was transferred to [facility]. During her hospitalization: Patient was seen by the following services ? ----- 1???infectious disease and as I mentioned that they were close monitoring of her antibiotics. 2???PT/OT, and patient was participating with rehabilitation 3???wound care nurse 4???nutrition Problem list 1???acute kidney injury on admission, multifactorial patient was seen and followed by [facility], Dr. Jones, her kidney functions improved tremendously. [...] I mentioned she was seen by a a&p technician, participating with PT/OT, was on DVT prophylaxis she was on regular diet. Today, patient is awake alert cooperative responsive under no acute distress and she got the maximum benefit from her hospital stay and nothing else can be offered to keep her in the hospital and she has stable. Another or lower level of care and she will be discharged to long-term facility to continue her care. After finishing her [facility] at [facility], patient has to be discharged taking [facility] to see Dr. Edi Robles aureus specializing [...] inj 4 mg 2 mL, IV Push, [id number] pantoprazole EC 40 mg tab 40 mg [...] 11:36:51 EDT Discharge: Start: T;N, Discharge to: Halfway unit/facility. Diagnosis Left prosthetic knee infection status [...] & CLINICALLY STABLE AFEBRILE OK TO D/C LONG TERM FACILITY. Orders Order Profile (Selected) Prescriptions Prescribed [...] Refill(s). Impression and Plan twt 40 mn Electronically signed by Adia Fink Conversion Underwriting Sales Representative Cerner at 07/24/2022 3:32 PM CDT documented in this encounter Plan of Treatment Not on file documented as of this encounter Visit Diagnoses Not on filedocumented in this encounter Care Teams General Education Instructor Relationship Specialty Start Date End Date Juan José Kendall MD [address] [place] [address] [place] [phone] PCP - General Family Medicine 12/25/22 Juan José Kendall MD [address] [facility] [address] [place] [phone] Referring Physician Family Medicine 12/25/22 documented as of this encounter
--- OUTSIDE RECORDS SUMMARY | 2025-02-22 09:34 | XMS_ITS | Encounter Summary ---
Author Organization [employer] ([place], [place], [place], [place], [place]) Address [address] [place] [address] Care Team Providers Care Tar Heat Exchanger Cleaner Name Role Phone Juan José Kendall MD Primary Care Provider + [phone] Juan José Kendall MD Unavailable [phone] Encounter Details Date Type Department Care Team (Late st Contact Info) Description 10/05/2018 Transcribed Document [facility] [place] [facility] [place] [address] ProviderLaurie MD [address] [place] [address] Social History Tobacco Use Types Packs/Day Years [...] on filedocumented in this encounter Care Teams Tar Heat Exchanger Cleaner Relationship Specialty Start Date End Date Juan José Kendall MD [address] [facility] [address] [place] [address] PCP - General Family Medicine 12/25/22 Juan José Kendall MD [address] [place] [facility] [address] [place] [address] Referring Physician Family Medicine 12/25/22 documented as of this encounter
--- OUTSIDE RECORDS SUMMARY | 2025-02-22 09:34 | XMS_ITS | Encounter Summary ---
Author Organization [employer] ([place], [place], [place], [place], [place]) Address [address] [place] [address] Care Team Providers Care Clam Bed Worker Name Role Phone Juan José Kendall MD Primary Care Provider +- [phone] Juan José Kendall MD Unavailable [phone] Encounter Details Date Type Department Care Team (Late st Contact Info) Description 10/05/2018 Transcribed Document [facility] [place] [address] [place] [address] ProviderLaurie MD [address] [place] [address] Social History Tobacco Use Types Packs/Day Years Used Date Smoking Tobacco: Never Assessed Comments Unknown Sex and Gender Information Value Date Recorded Sex Assigned at Not on file Legal Sex Female 2:23 PM CDT Gender Identity Not on file Sexual Orientation Not on file documented as of this encounter Miscellaneous Notes * Cerner Conversion Note - Laurie ProviderMD - 10/05/2018 1:08 PM CDT Care Management Assessment/Plan Entered On: 10/05/2018 13:09 EDT Performed On: 10/05/2018 13:08 EDT by PJ NELSON Care Management Note Care Management Note : Follow-up appts scheduled: Dr. Ulloa (ID) 10/19/2018 @ 1315, Dr. Robles (ortho) 10/25/2018 @ 1030. Care Management Note Report : PJ NELSON - 10/05/18 11:30:14 10/05/2018 Call received from [facility], they have received the insurance authorization for admission, milton marinelli to get her tomorrow. Dr. Porter notified, and in agreement. Accepting physician Dr. Ordonez. Call report to [phone]. Fax DC summary to [phone]. [facility] transport scheduled for 10/06/2018 @ 1300. PJ NLESON 10/05/18 08:54:39 10/05/2018 Clinical review faxed to [facility] ([phone]) to request coverage for continued LTACH services. Approval pending. Auth# [id number]. PJ NELSON 10/05/18 08:47:08 Patient/ chose [facility]. Per Ashley, insurance preauth was started, awaiitng response. PJ NELSON 10/04/18 10:04:33 10/04/2018 Bed offer received from [facility]. Family notified,now requesting to reconsider [facility]. I have explained that we need an answer for which place the prefer so that we can move forward with placement. states he will call both facilities, and they will make a decision. PJ NELSON 10/03/18 15:02:06 10/03/2018 Spoke with [facility], they do not have a contract with [place]. PJ NELSON 10/03/18 14:57:34 10/03/2018 Call received from [facility], they are unable to offer a bed for this patient. Patient and notified. They request a referral be faxed to [facility] (P: [phone] F: [phone]), faxed per their request. Awaiting a call back. PJ NELSON 10/03/18 13:54:20 10/03/2018 Bev Lewis, here to evaluate patient for possible bed placement. PJ NELSON 10/03/18 09:57:17 10/03/2018 Jose clinical liaison Zach Donohue, coming to the unit to eval patient for possible bed placement. Updates faxed per their request. LESLIEPJ - 09/29/18 16:38:16 09/29/2018 Per ID, abx therapy to stop 10/05/2018. Patient states she is open to rehab, but prefers it be close to her home in [place]. Referrals faxed to [facility] ([facility] liaison), [place], [place], and [place]. Awaiting a call back. PJ NELSON - 09/28/18 16:26:43 09/28/2018 Fax recieved from [facility] with approval for LTACH services 09/29-10/04. Auth# [id number]. Fax next clinical review to [phone] on 10/05/2018. PJ NELSON 09/28/18 08:24:24 09/28/2018 Clinical review faxed to [facility] ([phone]) to request coverage for continued LTACH services. Approval pending. Auth# [id number]. PJ NELSON - 09/21/18 15:48:14 09/21/2018 Fax recieved from [facility] with approval for LTACH coverage 09/22/2018-09/28/2018. Auth# [id number]. Fax next clinical review to [phone] on 09/28/2018. PJ NELSON - 09/21/18 08:22:57 09/21/2018 Clinical review faxed to [facility] ([phone]) to request coverage for continued LTACH services. Approval pending. Auth# [id number]. PJ NELSON - 09/15/18 11:34:17 09/15/2018 Fax recieved from [facility] with approval for LTACH services 09/15-09/21/2018. Auth# [id number]. Fax next clinical review to [phone] on 09/21/2018. PJ NELSON 09/14/18 08:28:49 09/14/2018 Clinical review faxed to [facility] ([phone]) to request coverage for continued LTACH services. Approval pending. Auth# [id number]. Janak Chuyita, Clinical Assessment Liaison - 09/09/18 14:03:00 Chuyita [...] [facility]- Orthopedic- Dr. Shay Guerrero [facility] Natalia The patient does wish to return home upon discharge but understands that rehab/SNF may be needed. All papers were explained and signed. No other issues. CM will continue to monitor. Documentation Status Complete : Yes NELSONRASHEEDRALPH - 10/05/2018 13:08 EDT Electronically signed by Aleks [facility] Conversion Seam Closer Cerner at 07/24/2022 3:45 PM CDT documented in this encounter Plan of Treatment Not on file documented as of this encounter Visit Diagnoses Not on filedocumented in this encounter Care Teams Clam Bed Worker Relationship Specialty Start Date End Date Juan José Kendall MD [address] [facility] [address] [place] [address] PCP - General Family Medicine 12/25/22 Juan José Kendall MD [address] [place] [facility] [address] [place] [address] Referring Physician Family Medicine 12/25/22 documented as of this encounter
--- OUTSIDE RECORDS SUMMARY | 2025-02-22 09:34 | XMS_ITS | Encounter Summary ---
Author Organization [employer] ([place], [place], [place], [place], [place]) Address [address] [place] [address] Care Team Providers Care College Associate Name Role Phone Juan José Kendall MD Primary Care Provider + [phone] Juan José Kendall MD Unavailable [phone] Encounter Details Date Type Department Care Team (Late st Contact Info) Description 10/05/2018 Transcribed Document [facility] [place] [address] [place] [address] ProviderLaurie MD [address] [place] [address] Social History Tobacco Use Types Packs/Day Years [...] filedocumented in this encounter Care Teams College Associate Relationship Specialty Start Date End Date Juan José Kendall MD [address] [place] [address] [place] [address] PCP - General Family Medicine 12/25/22 Juan José Kendall MD [address] [place] [address] [place] [address] Referring Physician Family Medicine 12/25/22 documented as of this encounter
--- OUTSIDE RECORDS SUMMARY | 2025-02-22 09:34 | XMS_ITS | Encounter Summary ---
Author Organization [employer] ([place], [place], [place], [place], [place]) Address [address] [place] [address] Care Team Providers Care Gem Stone Cutter Name Role Phone Juan José Kendall MD Primary Care Provider + [phone] Juan José Kendall MD Unavailable [phone] Encounter Details Date Type Department Care Team (Late st Contact Info) Description 10/05/2018 Transcribed Document [facility] [place] Medicine [address] [place] [address] ProviderLaurie MD [address] [place] [address] Social History Tobacco Use Types Packs/Day Years Used Date Smoking Tobacco: Never Assessed Comments Unknown Sex and Gender Information Value Date Recorded Sex Assigned at Not on file Legal Sex Female 2:23 PM CDT Gender Identity Not on file Sexual Orientation Not on file documented as of this encounter Miscellaneous Notes * Cerner Conversion Note - Laurie ProviderMD - 10/05/2018 8:46 AM CDT Care Management Assessment/Plan Entered On: 10/05/2018 8:47 EDT Performed On: 10/05/2018 8:46 EDT by PJ NELSON Care Management Note Care Management Note : Patient/ chose [facility]. Per Ashley, insurance preauth was started, awaiitng response. Care Management Note Report : PJ NELSON - 10/04/18 10:04:33 10/04/2018 Bed offer received from [facility]. Family notified,now requesting to reconsider [facility]. I have explained that we need an answer for which place the prefer so that we can move forward with placement. states he will call both facilities, and they will make a decision. PJ NELSON - 10/03/18 15:02:06 10/03/2018 Spoke with [facility], they do not have a contract with [facility]. PJ NELSON 10/03/18 14:57:34 10/03/2018 Call received from [facility] Velasquez, they are unable to offer a bed for this patient. Patient and notified. They request a referral be faxed to [facility] (P: [phone] F: [phone]), faxed per their request. Awaiting a call [...] it be close to her home in [place]. Referrals faxed to De[facility] Patricia ([facility] liaison), [facility], and [place]. Awaiting a call back. PJ NELSON 09/28/18 16:26:43 09/28/2018 Fax recieved from [facility] with approval for LTACH services 09/29-10/04. Auth# [id number]. Fax next clinical review to [phone] on 10/05/2018. PJ NELSON 09/28/18 08:24:24 09/28/2018 Clinical review faxed to [facility] ([phone]) to request coverage for continued LTACH services. Approval pending. Auth# [id number]. PJ NELSON 09/21/18 15:48:14 09/21/2018 Fax recieved from [facility] with approval for LTACH coverage 09/22/2018-09/28/2018. Auth# [id number]. Fax next clinical review to [phone] on 09/28/2018. PJ NELSON - 09/21/18 08:22:57 09/21/2018 Clinical review faxed to [facility] ([phone]) to request coverage for continued LTACH services. Approval pending. Auth# [id number]. PJ NESLON - 09/15/18 11:34:17 09/15/2018 Fax recieved from [facility] with approval for LTACH services 09/15-09/21/2018. Auth# [id number]. Fax next clinical review to [phone] on 09/21/2018. PJ NELSON - 09/14/18 08:28:49 09/14/2018 Clinical review faxed to [facility] ([phone]) to request coverage for continued LTACH services. Approval pending. Auth# [id number]. Chuyita Briceno, Clinical Assessment Liaison - 09/09/18 [...] unit or SNF. She has previously used [facility] and prefers to use them again if needed. The patient owns a shower chair, BSC and w/c. The patient has never needed a dialysis clinic. The patient has not fallen in the past 3 months. PCP- Dr. [facility]- Orthopedic- Dr. Shay Guerrero [facility]- [facility] SNF- [facility] Natalia The patient does wish to [...] on filedocumented in this encounter Care Teams Gem Stone Cutter Relationship Specialty Start Date End Date Juan José Kendall MD [address] [facility] [address] [place] [address] PCP - General Family Medicine 12/25/22 Juan José Kendall MD [address] [place] [facility] [address] [place] [address] Referring Physician Family Medicine 12/25/22 documented as of this encounter
--- OUTSIDE RECORDS SUMMARY | 2025-02-22 09:35 | XMS_ITS | Encounter Summary ---
Author Organization [employer] ([place], [place], [place], [place], [place]) Address [address] [place] [address] Care Team Providers Care Highway Administrative Engineer Name Role Phone Juan José Kendall MD Primary Care Provider + [phone] Juan José Kendall MD Unavailable [phone] Encounter Details Date Type Department Care Team (Late st Contact Info) Description 10/05/2018 Transcribed Document [facility] [place] Medicine [address] [place] [address] ProviderLaurie MD [address] [place] [address] Social History Tobacco Use Types Packs/Day Years [...] All Active Orders Reviewed : Yes Anna Lowe, Rn - 10/05/2018 5:27 EDT documented in this encounter Plan of Treatment Not on file documented as of this encounter Visit Diagnoses Not on filedocumented in this encounter Care Teams Highway Administrative Engineer Relationship Specialty Start Date End Date Juan José Kendall MD [address] [place] [address] PCP - General Family Medicine 12/25/22 Juan José Kendall MD [address] [place] [address] [place] [phone] Referring Physician Family Medicine 12/25/22 documented as of this encounter
--- OUTSIDE RECORDS SUMMARY | 2025-02-22 09:35 | XMS_ITS | Encounter Summary ---
Author Organization [employer] ([place], [place], [place], [place], [place]) Address [address] [place] [address] Care Team Providers Care Power Plant Operations Manager Name Role Phone Juan José Kendall MD Primary Care Provider +- [phone] Juan José Kendall MD Unavailable [phone] Encounter Details Date Type Department Care Team (Late st Contact Info) Description 10/05/2018 Transcribed Document [facility] [place] [address] [place] [address] ProviderLaurie MD [address] [place] [address] Social History Tobacco Use Types Packs/Day Years [...] in this encounter Care Teams Power Plant Operations Manager Relationship Specialty Start [place] [address] [place] [address] [address] [place] [phone] PCP - General Family Medicine 12/25/22 Juan José Kendall MD [address] [place] [address] [address] [place] [phone] Referring Physician Family Medicine 12/25/22 documented as of this encounter
--- OUTSIDE RECORDS SUMMARY | 2025-02-22 09:35 | XMS_ITS | Encounter Summary ---
Author Organization [employer] ([place], [place], [place], [place], [place]) Address [address] [place] [address] Care Team Providers Care Flight Technician Name Role Phone Juan José Kendall MD Primary Care Provider + [phone] Juan José Kendall MD Unavailable [phone] Encounter Details Date Type Department Care Team (Late st Contact Info) Description 10/05/2018 Transcribed Document [facility] [place] [address] [place] [address] ProviderLaurie MD [address] [place] [address] Social History Tobacco Use Types Packs/Day Years [...] All Active Orders Reviewed : Yes Lisa Haile, LISBETH - 10/05/2018 17:05 EDT documented in this encounter Plan of Treatment Not on file documented as of this encounter Visit Diagnoses Not on filedocumented in this encounter Care Teams Flight Technician Relationship Specialty Start Date End Date Juan José Kendall MD [address] [place] [address] [place] [address] PCP - General Family Medicine 12/25/22 Juan José Kendall MD [address] [place] [address] [place] [phone] Referring Physician Family Medicine 12/25/22 documented as of this encounter
--- OUTSIDE RECORDS SUMMARY | 2025-02-22 09:36 | XMS_ITS | Encounter Summary ---
Author Organization [employer] ([place], [place], [place], [place], [place]) Address [address] [place] [address] Care Team Providers Care Maintenance And Utilities Supervisor Name Role Phone Juan José Kendall MD Primary Care Provider + [phone] Juan José Kendall MD Unavailable [phone] Encounter Details Date Type Department Care Team (Late st Contact Info) Description 09/08/2018 Transcribed Document [facility] [place] [facility] [place] [address] Laurie Garcia MD [address] [place] [address] Social History Tobacco Use Types Packs/Day Years Used Date Smoking Tobacco: Never Assessed Comments Unknown Sex and Gender Information Value Date Recorded Sex Assigned at Not on file Legal Sex Female 2:23 PM CDT Gender Identity Not on file Sexual Orientation Not on file documented as of this encounter Miscellaneous Notes * Cerner Conversion Note - Laurie Garcia MD - 09/08/2018 8:11 PM CDT Patient: TRUDI [...] She was transferred from local hospital [facility] on 08/30/2018 to [facility] after she was treated with [...] transferred to higher level of care at [facility] for orthopedic evaluation and ID [...] Patient was seen by [facility] with close monitoring renal function as well [...] % LOW Lymph # 1.17 K/uL LOW Chester % 8.9 % [place] # 0.63 K/uL Eos % 6.8 % [...] 19.2 % LOW Lymph # 1.22 K/uL [place] % 9.1 % [place] # 0.58 K/uL Eos % 7.2 % [...] daily, # 1 Box, 0 Refill(s), Pharmacy: [facility] Documented Medications Documented Amlactin 12% topical [...] filedocumented in this encounter Care Teams Maintenance And Utilities Supervisor Relationship Specialty Start Date End Date Juan José Kendall MD [address] [facility] [address] [place] [phone] PCP - General Family Medicine 12/25/22 Juan José Kendall MD [address] [place] [facility] [address] [place] [phone] Referring Physician Family Medicine 12/25/22 documented as of this encounter
--- OUTSIDE RECORDS SUMMARY | 2025-02-22 09:36 | XMS_ITS | Encounter Summary ---
Author Organization [employer] ([place], [place], [place], [place], [place]) Address [address] [place] [address] Care Team Providers Care Director Of Recruiting Name Role Phone Juan José Kendall MD Primary Care Provider +- [phone] Juan José Kendall MD Unavailable [phone] Encounter Details Date Type Department Care Team (Late st Contact Info) Description 10/05/2018 Transcribed Document [facility] [place] [facility] [place] [address] ProviderLaurie MD [address] [place] [address] Social History Tobacco Use Types Packs/Day Years Used Date Smoking Tobacco: Never Assessed Comments Unknown Sex and Gender Information Value Date Recorded Sex Assigned at Not on file Legal Sex Female 2:23 PM CDT Gender Identity Not on file Sexual Orientation Not on file documented as of this encounter Miscellaneous Notes * Byron Conversion Note - Laurie ProviderMD - 10/05/2018 2:00 AM CDT Greeter Guest Services Details Entered On: 10/05/2018 2:42 EDT Performed On: 10/05/2018 2:00 EDT by Anna Lowe Rn Order Details Transport Mode Order Detail : Stretcher/Gurney Isolation Precautions Order Detail : Standard Precautions Order Detail : 0 IV Order Detail : 1 Oxygen Order Detail : 0 Nurse Collect Order Detail : 1 Lift/Transfer : Maximal assist Central Line Order Detail : Yes Room Service : Appropriate Arterial Line : No Anna Lowe Rn - 10/05/2018 2:42 EDT Electronically signed by Aleks [facility] Conversion Table Games Supervisor Cerner at 07/24/2022 3:46 PM CDT documented in this encounter Plan of Treatment Not on file documented as of this encounter Visit Diagnoses Not on filedocumented in this encounter Care Teams Director Of Recruiting Relationship Specialty Start Date End Date Juan José Kendall MD [address] [place] [facility] [address] [place] [phone] PCP - General Family Medicine 12/25/22 Juan José Kendall MD [address] [place] [facility] [address] [place] [phone] Referring Physician Family Medicine 12/25/22 documented as of this encounter
--- OUTSIDE RECORDS SUMMARY | 2025-02-22 09:36 | XMS_ITS | Encounter Summary ---
Author Organization [employer] ([place], [place], [place], [place], [place]) Address [address] [place] [address] Care Team Providers Care Comparison Shopper Name Role Phone Juan José Kendall MD Primary Care Provider + [phone] Juan José Kendall MD Unavailable [phone] Encounter Details Date Type Department Care Team (Late st Contact Info) Description 09/19/2018 Transcribed Document [facility] [address] [place] [address] ProviderLaurie MD [address] [place] [address] Social History Tobacco Use Types Packs/Day Years [...] on filedocumented in this encounter Care Teams Comparison Shopper Relationship Specialty Start Date End Date Juan José Kendall MD [address] [place] [facility] [address] [place] [address] PCP - General Family Medicine 12/25/22 Juan José Kendall MD [address] [place] [address] [place] [phone] Referring Physician Family Medicine 12/25/22 documented as of this encounter
--- OUTSIDE RECORDS SUMMARY | 2025-02-22 09:36 | XMS_ITS | Encounter Summary ---
Author Organization [employer] ([place], [place], [place], [place], [place]) Address [address] [place] [address] Care Team Providers Care Motor Vehicle Field Representative Name Role Phone Juan José Kendall MD Primary Care Provider +- [phone] Juan José Kendall MD Unavailable [phone] Encounter Details Date Type Department Care Team (Late st Contact Info) Description 10/02/2018 Transcribed Document [facility] [address] [place] [address] ProviderLaurie MD [address] [place] [address] Social History Tobacco Use Types Packs/Day Years Used Date Smoking Tobacco: Never Assessed Comments Unknown Sex and Gender Information Value Date Recorded Sex Assigned at Not on file Legal Sex Female 2:23 PM CDT Gender Identity Not on file Sexual Orientation Not on file documented as of this encounter Miscellaneous Notes * Cerner Conversion Note - Laurie ProviderMD - 10/02/2018 2:00 AM CDT Manager Ed Details Entered On: 10/02/2018 2:27 EDT Performed [...] : Appropriate Arterial Line : No Joanne Norton RN - 10/02/2018 2:27 EDT Electronically signed by Aleks [facility] Conversion Biomed Tech Cerner at 07/24/2022 3:45 PM CDT documented in this encounter Plan of Treatment Not on file documented as of this encounter Visit Diagnoses Not on filedocumented in this encounter Care Teams Motor Vehicle Field Representative Relationship Specialty Start Date End Date Juan José Kendall MD [address] [place] [facility] [address] [place] [phone] PCP - General Family Medicine 12/25/22 Juan José Kendall MD [address] [facility] [address] [place] [phone] Referring Physician Family Medicine 12/25/22 documented as of this encounter
--- OUTSIDE RECORDS SUMMARY | 2025-02-22 09:36 | XMS_ITS | Encounter Summary ---
Author Organization [employer] ([place], [place], [place], [place], [place]) Address [address] [place] [address] Care Team Providers Care Director Prison Name Role Phone Juan José Kendall MD Primary Care Provider + [phone] Juan José Kendall MD Unavailable [phone] Encounter Details Date Type Department Care Team (Late st Contact Info) Description 09/19/2018 Transcribed Document [facility] [place] [address] [place] [address] ProviderLaurie MD [address] [place] [address] Social History Tobacco Use Types Packs/Day Years [...] filedocumented in this encounter Care Teams Director Prison Relationship Specialty Start Date End Date Juan José Kendall MD [address] [place] [address] [place] [address] PCP - General Family Medicine 12/25/22 Juan José Kendall MD [address] [place] [address] [place] [address] Referring Physician Family Medicine 12/25/22 documented as of this encounter
--- OUTSIDE RECORDS SUMMARY | 2025-02-22 09:37 | XMS_ITS | Encounter Summary ---
Author Organization [employer] ([place], [place], [place], [place], [place]) Address [address] [place] [address] Care Team Providers Care Rn Homecare Name Role Phone Juan José Kendall MD Primary Care Provider + [phone] Juan José Kendall MD Unavailable [phone] Encounter Details Date Type Department Care Team (Late st Contact Info) Description 09/17/2018 Transcribed Document [facility] [place] Family Medicine [address] [place] [address] ProviderLaurie MD [address] [place] [address] Social History Tobacco Use Types Packs/Day Years [...] filedocumented in this encounter Care Teams Rn Homecare Relationship Specialty Start Date End Date Juan José Kendall MD [address] [place] [facility] [address] [place] [phone] PCP - General Family Medicine 12/25/22 Juan José Kendall MD [address] [place] [address] [place] [address] Referring Physician Family Medicine 12/25/22 documented as of this encounter
--- OUTSIDE RECORDS SUMMARY | 2025-02-22 09:37 | XMS_ITS | Encounter Summary ---
Author Organization [employer] ([place], [place], [place], [place], [place]) Address [address] [place] [address] Care Team Providers Care Substation Inspector Name Role Phone Juan José Kendall MD Primary Care Provider + [phone] Juan José Kendall MD Unavailable [phone] Encounter Details Date Type Department Care Team (Late st Contact Info) Description 10/02/2018 Transcribed Document [facility] [place] Family Medicine [address] [place] [address] ProviderLaurie MD [address] [place] [address] Social History Tobacco Use Types Packs/Day Years [...] on filedocumented in this encounter Care Teams Substation Inspector Relationship Specialty Start Date End Date Juan José Kendall MD [address] [place] [address] PCP - General Family Medicine 12/25/22 Juan José Kendall MD [address] [place] [address] Referring Physician Family Medicine 12/25/22 documented as of this encounter
--- OUTSIDE RECORDS SUMMARY | 2025-02-22 09:37 | XMS_ITS | Encounter Summary ---
Author Organization [employer] ([place], [place], [place], [place], [place]) Address [address] [place] [address] Care Team Providers Care Reimbursement Coordinator Name Role Phone Juan José Kendall MD Primary Care Provider +- [phone] Juan José Kendall MD Unavailable [phone] Encounter Details Date Type Department Care Team (Late st Contact Info) Description 09/08/2018 Transcribed Document [facility] [place] [address] ProviderLaurie MD [address] [place] [address] Social History Tobacco Use Types Packs/Day Years [...] Performed On: 09/09/2018 13:55 EDT by MONICA ROBIN PT General Information, PT Visit Type, PT [...] only short distances; per PT note from [facility], pt sitting EOB ~11min with therapy and [...] MobilityComment : deferred per pt c/o nausea/vomitting MONICA ROBIN, PT - 09/09/2018 13:55 EDT Gait Training/Assessment, PT Gait Assistance Level : Unable to assess/activity not appropriate MONICA ROBIN, PT - 09/09/2018 13:55 EDT Cognition Assessment, PT Orientation : Oriented x 4 Attention Assessment : Present MONICA ROBIN, PT - 09/09/2018 13:55 EDT Edu Topics [...] training, Gait training, Therapeutic exercises, Transfer training ROBINMONICA, PT - 09/09/2018 13:55 EDT Short Term Goals Mobility/Bed Mobility STG PT Grid Goal #1 Goal #2 Activity : Supine to sit Sit to stand Assist : Assist, moderate Assist, moderate Date to Meet : 09/23/2018 EDT 09/23/2018 EDT Goal Status : Initial goal Initial goal Comment : TTWB LLE ROBINSANDRAMONICA, PT - 09/09/2018 13:55 EDT SHARDA MONICA, PT - 09/09/2018 13:55 EDT Custodial Goals Mobility/Bed Mobility LTG PT Grid Goal [...] Plan for Treatment : cont PTx POC ROBINSANDRAMONICA, PT - 09/09/2018 13:55 EDT Pain Assessment Pain Scaled Used : 0-10 Pain scale Pain Score Pre-Intervention : 6 Location : Knee, left Pain Intervention, Drug : Medicated ROBINSANDRAMONICA, PT - 09/09/2018 13:55 EDT Image 1 - Images currently included in the form version of this document have not been included in the text rendition version of the form. Anticipated Discharge Needs, OT/PT Anticipated Discharge to : Unit, fpc Recommend Continued Therapy at Discharge : Yes SHARDA MONICA, PT - 09/09/2018 13:55 EDT [place] PT Charges PT Eval Moderate Complexity : 1 SHARDA MONICA, PT - 09/09/2018 13:55 EDT Electronically signed by Aleks [facility] Conversion It Investment/Portfolio Manager Cerner at 07/24/2022 3:35 PM CDT documented in this encounter Plan of Treatment Not on file documented as of this encounter Visit Diagnoses Not on filedocumented in this encounter Care Teams Reimbursement Coordinator Relationship Specialty Start Date End Date Juan José Kendall MD [address] [facility] [address] [place] [id number] PCP - General Family Medicine 12/25/22 Juan José Kendall MD [address] [facility] [address] [place] [address] Referring Physician Family Medicine 12/25/22 documented as of this encounter
--- OUTSIDE RECORDS SUMMARY | 2025-02-22 09:37 | XMS_ITS | Encounter Summary ---
Author Organization [employer] ([place], [place], [place], [place], [place]) Address [address] [place] [address] Care Team Providers Care Applications Trainer Name Role Phone Juan José Kendall MD Primary Care Provider + [phone] Juan José Kendall MD Unavailable [phone] Encounter Details Date Type Department Care Team (Late st Contact Info) Description 10/02/2018 Transcribed Document [facility] [place] Family Medicine [address] [place] [address] ProviderLaurie MD [address] [place] [address] Social History Tobacco Use Types Packs/Day Years [...] ORLY RICHARDS, RN - 10/02/2018 18:50 EDT documented in this encounter Plan of Treatment Not on file documented as of this encounter Visit Diagnoses Not on filedocumented in this encounter Care Teams Applications Trainer Relationship Specialty Start Date End Date Juan José Kendall MD [address] [place] [id number] PCP - General Family Medicine 12/25/22 Juan José Kendall MD [address] [place] [id number] Referring Physician Family Medicine 12/25/22 documented as of this encounter
--- OUTSIDE RECORDS SUMMARY | 2025-02-22 09:37 | XMS_ITS | Encounter Summary ---
Author Organization [employer] ([place], [place], [place], [place], [place]) Address [address] [place] [address] Care Team Providers Care Kindergarten Prep Teacher Name Role Phone Juan José Kendall MD Primary Care Provider +- [phone] Juan José Kendall MD Unavailable [phone] Encounter Details Date Type Department Care Team (Late st Contact Info) Description 02/01/2019 Transcribed Document [facility] [place] [address] [place] [address] Laurie Garcia MD [address] [place] [address] Social History Tobacco Use Types Packs/Day Years Used Date Smoking Tobacco: Never Assessed Comments Unknown Sex and Gender Information Value Date Recorded Sex Assigned at Not on file Legal Sex Female 2:23 PM CDT Gender Identity Not on file Sexual Orientation Not on file documented as of this encounter Miscellaneous Notes * Cerner Conversion Note - Laurie Garcia MD - 02/01/2019 5:01 PM CDT Pain Assessment [...] EDT Pain Scale Intensity : 3 Lenora Hong, RN - 02/02/2019 0:54 EDT Image 4 - Images currently included in the form version of this document have not been included in the text rendition version of the form. documented in this encounter Plan of Treatment Not on file documented as of this encounter Visit Diagnoses Not on filedocumented in this encounter Care Teams Kindergarten Prep Teacher Relationship Specialty Start Date End Date [...]
--- OUTSIDE RECORDS SUMMARY | 2025-02-22 09:37 | XMS_ITS | Encounter Summary ---
Author Organization [email or web address] ([place], [place], [place], [place], [place]) Address [address] [place] [address] Care Team Providers Care Auto Body Detailer Name Role Phone Juan José Kendall MD Primary Care Provider +- [phone] Juan José Kendall MD Unavailable [phone] Encounter Details Date Type Department Care Team (Late st Contact Info) Description 10/01/[address] [facility] [place] Family Medicine [address] [place] [address] ProviderLaurie MD [address] [place] [address] Social History Tobacco Use Types Packs/Day Years [...] filedocumented in this encounter Care Teams Auto Body Detailer Relationship Specialty Start Date End Date Juan José Kendall MD [address] [facility] [address] [place] [address] PCP - General Family Medicine 12/25/22 Juan José Kendall MD [address] [facility] [address] [place] [address] Referring Physician Family Medicine 12/25/22 documented as of this encounter
--- OUTSIDE RECORDS SUMMARY | 2025-02-22 09:38 | XMS_ITS | Encounter Summary ---
Author Organization [employer] ([place], [place], [place], [place], [place]) Address [address] [place] [address] Care Team Providers Care Intelligence Operations Name Role Phone Juan José Kendall MD Primary Care Provider +- [phone] Juan José Kendall MD Unavailable [phone] Encounter Details Date Type Department Care Team (Late st Contact Info) Description 09/08/2018 Transcribed Document [facility] [place] [facility] [place] [address] ProviderLaurie MD [address] [place] [address] Social History Tobacco Use Types Packs/Day Years Used Date Smoking Tobacco: Never Assessed Comments Unknown Sex and Gender Information Value Date Recorded Sex Assigned at Not on file Legal Sex Female 2:23 PM CDT Gender Identity Not on file Sexual Orientation Not on file documented as of this encounter Miscellaneous Notes * Cerner Conversion Note - Laurie ProviderMD - 09/08/2018 3:52 PM CDT Patient: [...] was more recently admitted to [facility] x2 earlier this month on 08/16 and [...] getting wound care. She was transferred to [facility] today for a higher level of care. [...] 50 mL - 700 mg, IV Piggyback, [id number], infuse over 30 Minute(s) Anticoagulant heparin - [...] Rate 16 (SEP 08 09:44) 14 (SEP 06 06:00) 16 (SEP 07 18:22) SBP 135 (SEP 08 09:44) 120 (SEP 07 18:22) H 142 (SEP 08 06:00) DBP [...] Labs (Last four charted values) WBC 7.0 (EDGARD 06) 6.4 (EDGARD 05) 7.2 (EDGARD 04) 6.6 (SEP 03) HB L 7.6 (EDGARD 06) L 7.5 (EDGARD 05) L 7.7 (EDGARD 04) L 7.8 (EDGARD 03) HCT L 25.1 (EDGARD 06) L 23.8 (EDGARD 05) L 24.8 (EDGARD 04) L 24.9 (SEP 03) Plt 287 (EDGARD 06) 267 (EDGARD 05) 280 (EDGARD 04) 222 (SEP 03) Na H 148 (EDGARD 06) 145 (EDGARD 05) 146 (EDGARD 04) 143 (EDGARD 03) K 3.6 (EDGARD 06) L 3.0 (EDGARD 05) L 3.3 (EDGARD 04) L 3.2 (EDGARD 03) Cl 112 (EDGARD 06) 111 (EDGARD 05) 112 (EDGARD 04) 111 (EDGARD 03) CO2 28 (EDGARD 06) 27 (EDGARD 05) 27 (EDGARD 04) 23 (EDGARD 03) BUN H 26 (EDGARD 06) H 29 (EDGARD 05) H 24 [...] her discharge. If she is transferred to [facility] then I can follow her there 5. Could switch the patient to OPAT through [facility] when she is discharged from LTAC/rehabilitation facility. 6. added probiotic ok to discharge to rehab whenever from my standpoint. Awaiting bed availability at [facility] apparently I discussed with her today complex set of medical issues requiring a high level of medical decision making. Patient has risk for further morbidity including loss of her limb. Electronically signed by Aleks, [facility] Conversion Responder Cerner at 07/24/2022 3:39 PM CDT documented in this encounter Plan of Treatment Not on file documented as of this encounter Visit Diagnoses Not on filedocumented in this encounter Care Teams Intelligence Operations Relationship Specialty Start Date End Date Juan José Kendall MD [address] [facility] [address] [place] [id number] PCP - General Family Medicine 12/25/22 Juan José Kendall MD [address] [facility] [address] [place] [phone] Referring Physician Family Medicine 12/25/22 documented as of this encounter
--- OUTSIDE RECORDS SUMMARY | 2025-02-22 09:38 | XMS_ITS | Encounter Summary ---
Author Organization [employer] ([place], [place], [place], [place], [place]) Address [address] [place] [address] Care Team Providers Care Brushing Operator Name Role Phone Juan José Kendall MD Primary Care Provider + [phone] Juan José Kendall MD Unavailable [phone] Encounter Details Date Type Department Care Team (Late st Contact Info) Description 10/01/2018 Transcribed Document [facility] [place] Family Medicine [facility] [place] [address] Laurie Garcia MD [address] [place] [address] Social History Tobacco Use Types Packs/Day Years [...] inj 4 mg 2 mL, IV Push, [id number] pantoprazole EC 40 mg tab 40 mg [...] on filedocumented in this encounter Care Teams Brushing Operator Relationship Specialty Start Date End Date Juan José Kendall MD [address] [facility] [address] [place] [id number] PCP - General Family Medicine 12/25/22 Juan José Kendall MD [address] [place] [phone] Referring Physician Family Medicine 12/25/22 documented as of this encounter
--- OUTSIDE RECORDS SUMMARY | 2025-02-22 09:38 | XMS_ITS | Encounter Summary ---
Author Organization [employer] ([place], [place], [place], [place], [place]) Address [address] [place] [address] Care Team Providers Care Commercial Finance Manager Name Role Phone Juan José Kendall MD Primary Care Provider + [phone] Juan José Kendall MD Unavailable [phone] Encounter Details Date Type Department Care Team (Late st Contact Info) Description 09/18/2018 Transcribed Document [place] Family Medicine [facility] [place] [address] Laurie Garcia MD [address] [place] [address] Social History Tobacco Use Types Packs/Day Years [...] inj 4 mg 2 mL, IV Push, [id number] pantoprazole EC 40 mg tab 40 mg [...] Water 250 mL 1,000 mg, IV Piggyback, [id number] Continuous: (0) PRN: (21) acetaminophen 325 mg [...] filedocumented in this encounter Care Teams Commercial Finance Manager Relationship Specialty Start Date End Date Juan José Kendall MD [facility] [address] [place] [id number] PCP - General Family Medicine 12/25/22 Juan José Kendall MD [facility] [address] [place] [phone] Referring Physician Family Medicine 12/25/22 documented as of this encounter
--- OUTSIDE RECORDS SUMMARY | 2025-02-22 09:39 | XMS_ITS | Encounter Summary ---
Author Organization [employer] ([place], [place], [place], [place], [place]) Address [address] [place] [address] Care Team Providers Care Office Auditor Name Role Phone Juan José Kendall MD Primary Care Provider +- [phone] Juan José Kendall MD Unavailable [phone] Encounter Details Date Type Department Care Team (Late st Contact Info) Description 09/17/2018 Transcribed Document [facility] [place] [address] [place] [address] ProviderLaurie MD [address] [place] [address] Social History Tobacco Use Types Packs/Day Years Used Date Smoking Tobacco: Never Assessed Comments Unknown Sex and Gender Information Value Date Recorded Sex Assigned at Not on file Legal Sex Female 2:23 PM CDT Gender Identity Not on file Sexual Orientation Not on file documented as of this encounter Miscellaneous Notes * Cerner Conversion Note - Laurie Garcia MD - 09/17/2018 3:00 AM CDT Pain Assessment Entered On: 09/18/2018 0:58 EDT Performed On: 09/17/2018 5:16 EDT by Kelly Deng, RN Intervention Information: acetaminophen Performed by Kelly Deng RN on 09/17/2018 04:16:00 EDT acetaminophen,500mg Oral Pain Assessment Pain Assessment : Follow-up assessment Pain Scale Goal : 3 Pain Improved by Intervention : Yes Kelly Deng RN - 09/18/2018 0:58 EDT Electronically signed by Aleks [facility] Conversion Chemist Steroids Cerner at 07/24/2022 3:48 PM CDT documented in this encounter Plan of Treatment Not on file documented as of this encounter Visit Diagnoses Not on filedocumented in this encounter Care Teams Office Auditor Relationship Specialty Start Date End Date Juan José Kendall MD [address] [facility] [address] [place] [id number] PCP - General Family Medicine 12/25/22 Juan José Kendall MD [address] [facility] [address] [place] [phone] Referring Physician Family Medicine 12/25/22 documented as of this encounter
--- OUTSIDE RECORDS SUMMARY | 2025-02-22 09:39 | XMS_ITS | Encounter Summary ---
Author Organization [employer] ([place], [place], [place], [place], [place]) Address [address] [place] [address] Care Team Providers Care Hand Cigar Making Supervisor Name Role Phone Juan José Kendall MD Primary Care Provider + [phone] Juan José Kendall MD Unavailable [phone] Encounter Details Date Type Department Care Team (Late st Contact Info) Description 09/08/2018 Transcribed Document [facility] [place] [address] [place] [address] ProviderLaurie MD [address] [place] [address] Social History Tobacco Use Types Packs/Day Years [...] Performed On: 09/08/2018 19:01 EDT by Linh Honeycutt, RN Teaching/Learning Assessment Barriers To Learning : None evident Individuals Taught : Patient Learning Style Preferences Patient : Demonstration, Verbal explanation Learning Style Preferences Family : Demonstration, Verbal explanation Linh Honeycutt, RN - 09/09/2018 3:23 EDT Electronically signed by Aleks [facility] Conversion Final Inspector Movement Assembly Cerner at 07/24/2022 3:33 PM CDT documented in this encounter Plan of Treatment Not on file documented as of this encounter Visit Diagnoses Not on filedocumented in this encounter Care Teams Hand Cigar Making Supervisor Relationship Specialty Start Date End Date Juan José Kendall MD [address] [facility] [address] [place] [phone] PCP - General Family Medicine 12/25/22 Juan José Kendall MD [address] [facility] [address] [place] [phone] Referring Physician Family Medicine 12/25/22 documented as of this encounter
--- OUTSIDE RECORDS SUMMARY | 2025-02-22 09:39 | XMS_ITS | Encounter Summary ---
Author Organization [employer] ([place], [place], [place], [place], [place]) Address [address] [place] [address] Care Team Providers Care Artist Consultant Name Role Phone Juan José Kendall MD Primary Care Provider + [phone] Juan José Kendall MD Unavailable [phone] Encounter Details Date Type Department Care Team (Late st Contact Info) Description 02/01/2019 Transcribed Document [facility] [place] [address] [place] [address] Laurie Garcia MD [address] [place] [address] Social History Tobacco Use Types Packs/Day Years Used Date Smoking Tobacco: Never Assessed Comments Unknown Sex and Gender Information Value Date Recorded Sex Assigned at Not on file Legal Sex Female 2:23 PM CDT Gender Identity Not on file Sexual Orientation Not on file documented as of this encounter Miscellaneous Notes * Cerner Conversion Note - Laurie Garcia MD - 02/01/2019 4:27 PM CDT On Going Discharge Planning Entered On: 02/01/2019 16:27 EDT Performed On: 02/01/2019 16:27 EDT by JAYE MAYFIELD Care Management-Hand Plug Shaper Care Management Progress Note Discharge Arrangements : [...] Acute Providers : Yes JAYE MAYFIELD Care Management-Hand Plug Shaper - 02/01/2019 16:27 EDT Narrative Progress Note Narrative Progress Note : Patient is current with [facility], she has 24 hour caregivers and spouse that cares for her at home. She as well as spouse decline SNF JAYE MAYFIELD Care Management-Hand Plug Shaper - 02/01/2019 16:27 EDT Electronically signed by [facility] Conversion Felt Hanger Cerner at 07/24/2022 3:56 PM CDT documented in this encounter Plan of Treatment Not on file documented as of this encounter Visit Diagnoses Not on filedocumented in this encounter Care Teams Artist Consultant Relationship Specialty Start Date End Date Juan José Kendall MD [address] [facility] [address] [place] [id number] PCP - General Family Medicine 12/25/22 Juan José Kendall MD [address] [place] [facility] [address] [place] [phone] Referring Physician Family Medicine 12/25/22 documented as of this encounter
--- OUTSIDE RECORDS SUMMARY | 2025-02-22 09:40 | XMS_ITS | Encounter Summary ---
Author Organization [employer] ([place], [place], [place], [place], [place]) Address [address] [place] [address] Care Team Providers Care Clin Nurse Name Role Phone JuanJ osé Kendall MD Primary Care Provider +- [phone] Juan José Kendall MD Unavailable [phone] Encounter Details Date Type Department Care Team (Late st Contact Info) Description 10/01/2018 Transcribed Document [facility] [place] [address] [place] [address] ProviderLaurie MD [address] [place] [address] Social History Tobacco Use Types Packs/Day Years [...] 2.3 (EDGARD 14) Lipase 191 (EDGARD 21) Allergies: biaxin I/O: 100 / x2 voids Estimated CrCl: 65-70 mL/min Vitals: Vitals Signs (last 24 hrs) Last Charted Minimum Maximum Temp 98.3 (OCT 01 07:18) 97.8 (SEP 30:26) 98.2 (SEP 30 15:00) Apical HR 79 (OCT 01 09:10) 79 (OCT 01 09:10) 79 (OCT 01 09:10) Mon HR 79 (OCT 01:18) 76 (SEP 30 15:00) 86 (SEP 30 23:12) Resp Rate 18 (SEP 30 23:12) 18 (SEP 30 19:26) 19 (SEP 30 15:00) SBP H 164 (OCT 01 09:10) H 144 (SEP 30 23:12) H 164 (OCT 01 09:10) DBP L 58 (OCT 01 09:10) L 58 (OCT 01 09:10) 68 (SEP 30 15:00) MAP 88 (OCT 01:18) 80 (SEP 30 23:12) 89 (SEP 30 19:26) SpO2 98 (OCT 01:18) 97 (SEP 30 15:00) 99 (SEP 30 [...] ID. Will follow, Adamaris Encarnacion PharmD, BCPS [phone] documented in this encounter Plan of Treatment Not on file documented as of this encounter Visit Diagnoses Not on filedocumented in this encounter Care Teams Clin Nurse Relationship Specialty Start Date End Date Juan José Kendall MD [address] [place] [address] [place] [phone] PCP - General Family Medicine 12/25/22 Juan José Kendall MD [address] [facility] [address] [place] [phone] Referring Physician Family Medicine 12/25/22 documented as of this encounter
--- OUTSIDE RECORDS SUMMARY | 2025-02-22 09:40 | XMS_ITS | Encounter Summary ---
Author Organization [email or web address] ([place], [place], [place], [place], [place]) Address [address] [place] [address] Care Team Providers Care Market Developer Name Role Phone Juan José Kendall MD Primary Care Provider +- [phone] Juan José Kendall MD Unavailable [phone] Encounter Details Date Type Department Care Team (Late st Contact Info) Description 09/08/2018 Transcribed Document [facility] [place] Family Medicine [facility] [place] [address] ProviderLaurie MD [address] [place] [address] Social History Tobacco Use Types Packs/Day Years Used Date Smoking Tobacco: Never Assessed Comments Unknown Sex and Gender Information Value Date Recorded Sex Assigned at Not on file Legal Sex Female 2:23 PM CDT Gender Identity Not on file Sexual Orientation Not on file documented as of this encounter Miscellaneous Notes * Cerner Conversion Note - Laurie ProviderMD - 09/08/2018 2:00 AM CDT Drier Unloader Details Entered On: 09/08/2018 2:27 EDT Performed On: 09/08/2018 2:00 EDT by Geena De La Garza RN Order Details Transport Mode Order Detail : Bed (including specialty) Isolation Precautions Order Detail : Contact precautions Order Detail : 0 IV Order Detail : 0 Oxygen Order Detail : 0 Nurse Collect Order Detail : 0 Lift/Transfer : Maximal assist Central Line Order Detail : Yes Room Service : Not Appropriate Arterial Line : No Geena De La Garza RN - 09/08/2018 2:27 EDT Electronically signed by Aleks [facility] Conversion Airplane Inspector Cerner at 07/24/2022 3:33 PM CDT documented in this encounter Plan of Treatment Not on file documented as of this encounter Visit Diagnoses Not on filedocumented in this encounter Care Teams Market Developer Relationship Specialty Start Date End Date Juan José Kendall MD [address] [facility] [address] [place] [id number] PCP - General Family Medicine 12/25/22 Juan José Kendall MD [address] [facility] [address] [place] [phone] Referring Physician Family Medicine 12/25/22 documented as of this encounter
--- OUTSIDE RECORDS SUMMARY | 2025-02-22 09:40 | XMS_ITS | Encounter Summary ---
Author Organization [employer] ([place], [place], [place], [place], [place]) Address [address] [place] [address] Care Team Providers Care Fish Hatchery Inspector Name Role Phone Juan José Kendall MD Primary Care Provider + [phone] Juan José Kendall MD Unavailable +[phone] Encounter Details Date Type Department Care Team (Late st Contact Info) Description 02/01/2019 Transcribed Document [facility] [place] Family Medicine [address] [place] [address] ProviderLaurie MD [address] [place] [address] Social History Tobacco Use Types Packs/Day Years Used Date Smoking Tobacco: Never Assessed Comments Unknown Sex and Gender Information Value Date Recorded Sex Assigned at Not on file Legal Sex Female 2:23 PM CDT Gender Identity Not on file Sexual Orientation Not on file documented as of this encounter Miscellaneous Notes * Cerner Conversion Note - Laurie ProviderMD - 02/01/2019 5:00 AM CDT Chart [...] filedocumented in this encounter Care Teams Fish Hatchery Inspector Relationship Specialty Start Date End Date Juan José Kendall MD [address] [place] [address] PCP - General Family Medicine 12/25/22 Juan José Kendall MD [address] [place] [address] Referring Physician Family Medicine 12/25/22 documented as of this encounter
--- OUTSIDE RECORDS SUMMARY | 2025-02-22 09:40 | XMS_ITS | Encounter Summary ---
Author Organization [employer] ([place], [place], [place], [place], [place]) Address [address] [place] [address] Care Team Providers Care Churn Driller Helper Name Role Phone Juan José Kendall MD Primary Care Provider + [phone] Juan José Kendall MD Unavailable [phone] Encounter Details Date Type Department Care Team (Late st Contact Info) Description 09/17/2018 Transcribed Document [facility] [place] Family Medicine [facility] [place] [address] Laurie Garcia MD [address] [place] [address] Social History Tobacco Use Types Packs/Day Years Used Date Smoking Tobacco: Never Assessed Comments Unknown Sex and Gender Information Value Date Recorded Sex Assigned at Not on file Legal Sex Female 2:23 PM CDT Gender Identity Not on file Sexual Orientation Not on file documented as of this encounter Miscellaneous Notes * Cerner Conversion Note - Laurie Garcia MD - 09/17/2018 9:40 PM CDT [...] inj 4 mg 2 mL, IV Push, [id number] pantoprazole EC 40 mg tab 40 mg [...] Water 250 mL 1,000 mg, IV Piggyback, P83LVyp Continuous: (0) PRN: (21) acetaminophen 325 mg [...] 17.5 % LOW Lymph # 1.22 x10(3)/uL Hettinger % 9.8 % HI Hettinger # 0.68 K/uL Eos % 4.6 % [...] on filedocumented in this encounter Care Teams Churn Driller Helper Relationship Specialty Start Date End Date Juan José Kendall MD [address] [facility] [address] [place] [address] PCP - General Family Medicine 12/25/22 Juan José Kendall MD [address] [facility] [address] [place] [address] Referring Physician Family Medicine 12/25/22 documented as of this encounter
--- OUTSIDE RECORDS SUMMARY | 2025-02-22 09:41 | XMS_ITS | Encounter Summary ---
Author Organization [employer] ([place], [place], [place], [place], [place]) Address [address] [place] [address] Care Team Providers Care Materials Management Clerk Name Role Phone Juan José Kendall MD Primary Care Provider +- [phone] Juan José Kendall MD Unavailable [phone] Encounter Details Date Type Department Care Team (Late st Contact Info) Description 10/01/2018 Transcribed Document [facility] Family Medicine [address] [place] [address] ProviderLaurie MD [address] [place] [address] Social History Tobacco Use Types Packs/Day Years [...] filedocumented in this encounter Care Teams Materials Management Clerk Relationship Specialty Start Date End Date Juan José Kendall MD [address] [facility] [address] [place] [address] PCP - General Family Medicine 12/25/22 Juan José Kendall MD [address] [facility] [address] [place] [address] Referring Physician Family Medicine 12/25/22 documented as of this encounter
--- OUTSIDE RECORDS SUMMARY | 2025-02-22 09:41 | XMS_ITS | Encounter Summary ---
Author Organization [employer] ([place], [place], [place], [place], [place]) Address [address] [place] [address] Care Team Providers Care Mechanical Planner Name Role Phone Juan José Kendall MD Primary Care Provider + [phone] Juan José Kendall MD Unavailable +[phone] Encounter Details Date Type Department Care Team (Late st Contact Info) Description 02/01/2019 Transcribed Document [facility] [place] Family Medicine [address] [place] [address] Laurie Garcia MD [address] [place] [address] Social History Tobacco Use Types Packs/Day Years Used Date Smoking Tobacco: Never Assessed Comments Unknown Sex and Gender Information Value Date Recorded Sex Assigned at Not on file Legal Sex Female 2:23 PM CDT Gender Identity Not on file Sexual Orientation Not on file documented as of this encounter Miscellaneous Notes * Cerner Conversion Note - Laurie Garcia MD - 02/01/2019 3:03 PM CDT UM Authorization Entered On: 02/01/2019 15:06 EDT Performed On: 02/01/2019 15:03 EDT by ROBERT GRIFFIN RN-Utilization Review Primary Insurance Authorization Authorization and Policy Numbers : Insurance 1 Health Plan: ANTHEM [employer]OP[employer] Policy Number: [id number] Authorization Number: NPCR Insurance 2 Health Plan: MEDICARE Policy Number: [id number] Authorization Number: Insurance Primary Name : Luz Authorization Status-Primary : Admit approved Authorization Fax Number-Primary : [phone] to notify of discharge date Authorization Number-Primary : [id number] Number of Days Authorized-Primary : 6 Day(s) Authorized Service Begin Date-Primary : 02/01/2019 EDT Authorized Service End Date-Primary : 02/07/2019 EST Authorization Comments-Primary : Spoke with Vickie at [facility]. Admit approved for 7 days (02/01-02/07/19) with no clinicals needed at this time. If pt stays longer than 02/07/19, fax clinicals to . Fax discharge summary/date to . Historical Authorization Comments-Primary : No Authorization Comments Found ROBERT GRIFFIN RN-Utilization Review - 02/01/2019 15:03 EDT Electronically signed by Aleks [facility] Conversion Forest Economics Professor Cerner at 07/24/2022 3:46 PM CDT documented in this encounter Plan of Treatment Not on file documented as of this encounter Visit Diagnoses Not on filedocumented in this encounter Care Teams Mechanical Planner Relationship Specialty Start Date End Date Juan José Kendall MD [address] [facility] [address] [place] [address] PCP - General Family Medicine 12/25/22 Juan José Kendall MD [address] [facility] [address] [place] [address] Referring Physician Family Medicine 12/25/22 documented as of this encounter
--- OUTSIDE RECORDS SUMMARY | 2025-02-22 09:41 | XMS_ITS | Encounter Summary ---
Author Organization [employer] ([place], [place], [place], [place], [place]) Address [address] [place] [address] Care Team Providers Care Pick And Shovel Man Name Role Phone Juan José Kendall MD Primary Care Provider +- [phone] Juan José Kendall MD Unavailable [phone] Encounter Details Date Type Department Care Team (Late st Contact Info) Description 09/18/2018 Transcribed Document [facility] [place] [address] [place] [address] ProviderLaurie MD [address] [place] [address] Social History Tobacco Use Types Packs/Day Years Used Date Smoking Tobacco: Never Assessed Comments Unknown Sex and Gender Information Value Date Recorded Sex Assigned at Not on file Legal Sex Female 2:23 PM CDT Gender Identity Not on file Sexual Orientation Not on file documented as of this encounter Miscellaneous Notes * Cerner Conversion Note - Laurie ProviderMD - 09/18/2018 2:00 AM CDT Quality Assurance Clerk Details Entered On: 09/18/2018 0:59 EDT Performed [...] : Appropriate Arterial Line : No Kelly Deng RN - 09/18/2018 0:59 EDT Electronically signed by Aleks [facility] Conversion Nitrating Acid Mixer Cerner at 07/24/2022 3:55 PM CDT documented in this encounter Plan of Treatment Not on file documented as of this encounter Visit Diagnoses Not on filedocumented in this encounter Care Teams Pick And Shovel Man Relationship Specialty Start Date End Date Juan José Kendall MD [address] [facility] [address] [place] [address] PCP - General Family Medicine 12/25/22 Juan José Kendall MD [address] [facility] [address] [place] [address] Referring Physician Family Medicine 12/25/22 documented as of this encounter
--- OUTSIDE RECORDS SUMMARY | 2025-02-22 09:41 | XMS_ITS | Encounter Summary ---
Author Organization [employer] ([place], [place], [place], [place], [place]) Address [address] [place] [address] Care Team Providers Care Medical Interpreter Name Role Phone Juan José Kendall MD Primary Care Provider + [phone] Juan José Kendall MD Unavailable [phone] Encounter Details Date Type Department Care Team (Late st Contact Info) Description 09/08/2018 Transcribed Document [facility] Family Medicine [address] [place] [address] ProviderLaurie MD [address] [place] [address] Social History Tobacco Use Types Packs/Day Years [...] EDT Description of Event : Jasmyne at [facility] called and report and pt assessment [...] filedocumented in this encounter Care Teams Medical Interpreter Relationship Specialty Start Date End Date Juan José Kendall MD [address] [facility] [address] [place] [address] PCP - General Family Medicine 12/25/22 Juan José Kendall MD [address] [facility] [address] [place] [address] Referring Physician Family Medicine 12/25/22 documented as of this encounter
--- OUTSIDE RECORDS SUMMARY | 2025-02-22 09:42 | XMS_ITS ---
Author Organization [employer] Care Team Providers Care Bridge Engineer Name Role Phone Torey Bach Unavailable Unavailable Lucía Hendrix Unavailable Unavailable Blu [place] Unavailable Unavailable Allergies and adverse reactions Code CodeSystem Substance Reaction Severity StartDate Concern Status Biaxin Mild 10/06/2018 active Care Team Name Role Address Phone Organization Dates Blu [place] PCP [address] [place], [address], [facility] (Office): : [facility] 10/06/2018 - 12/13/2018 Torey Bach [address] [place] [address], [address] [place] [address] (Office): : [facility] 10/06/2018 - 12/13/2018 Lucía Hendrix [address], [place], [address], [facility] (Office): : [facility] 10/06/2018 - 12/13/2018 Goals Section Goals Description Status Target Date Psychoactive Medications will not result in adve rse effects. Active 01/25/2019 Resident psychosocial functi oning will not impair ability to interact with others. Active 01/25/2019 Resident will communicate an y complaints of discomfort and/or pain to staff. Active 01/25/2019 Resident will have ADL care needs met daily as measured by clean, well groomed and odor free Active 01/25/2019 Resident will not develop co mplications of immobility/decreased mobility as measured by no pressure ulcers, contractures, pneumonia Active 01/25/2019 Resident will not experience any injuries related to a fall throughout the next review period. Active 01/25/2019 Resident will participate in Toilet Regimen Acti ve 01/25/2019 Resident will tolerate foods /fluids provided without nausea, vomiting, heartburn and or GI sx. Active 01/25/2019 Residents Advanced Directive will be honored. Ac tive 01/25/2019 Skin Area will improve and n ot display signs or symptoms of infection. Active 01/25/2019 Will have needs met by assistance of staff as ne eded. Active 01/25/2019 Immunizations Immunization Status Vaccine Details Vaccine Code CodeSystem Date Notes TB 1 Step Mantoux (PPD) completed tuberculin skin test; unspecified formulation Given Right Forearm 98 CVX created date: 10/18/2018 administere d date: 10/15/2018 given on10/15/18 read on 10/17/18 see mar TB 1 Step Mantoux (PPD) completed tuberculin skin test; unspecified formulation Given Left Forearm 98 CVX created date: 10/18/2018 administere d date: 10/06/2018 Given on 10/06/18/re ad om 10/08/18 see Mar Mental Status Section Date Assessment Total Score Description 12/13/2018 BIMS 15 cognitively int act CAM 0 No delirium ind icated PHQ-9 00 12/03/2018 BIMS 15 cognitively int act CAM 0 No delirium ind icated PHQ-9 03 minimal depress ion Insurance Providers Plan of Treatment Section Interventions Intervention Code Code System Display Name Proposed D ate Problems Problem # Description Date of onset Resolved Date Code CodeSystem Concern Status 1 URINARY TRACT INFECTION, SITE NOT SPECIFIED [address] active 2 UNSPECIFIED OSTEOARTHRITIS, UNSPECIFIED SITE [address] active 3 ACUTE EMBOLISM AND THROMBOSIS OF UNSPECIFIED DEEP VEINS OF LEFT LOWER EXTREMITY [address] active 4 ACUTE KIDNEY FAILURE , UNSPECIFIED [address] active 5 ANEMIA, UNSPECIFIED [address] active 6 BODY MASS INDEX [BMI ] 45.0-49.9, ADULT [address] active 7 ESSENTIAL (PRIMARY) HYPERTENSION [address] active 8 GASTRO-ESOPHAGEAL REFLUX DISEASE WITHOUT ESOPHAGITIS [address] active 9 HYPERLIPIDEMIA, UNSPECIFIED [address] active 10 INFECTION AND INFLAMMATORY REACTION DUE TO INTERNAL LEFT KNEE PROSTHESIS, SEQUELA [address] active 11 METHICILLIN RESISTAN T STAPHYLOCOCCUS AUREUS INFECTION, UNSPECIFIED SITE [address] active 12 OBSTRUCTIVE SLEEP APNEA (ADULT) (PEDIATRIC) [address] active 13 PURE HYPERGLYCERIDEMIA [address] active Reason for Referral No Reasons for Referral Entered Social History Social History Observation Description Start Date End Date Code Code System Current Smoking Status Tobacco smoking consumption unknown 089296865 SNOMED CT Sex Assigned At Female 1955 91998-1 [facility] Gender Identity Sexual Orientation Vital Signs Code Code System Vitals Name Values and Units Timing Information 73595-5 [facility] Pain Level Value=0.0 12/13/2018 9279-1 [facility] Respiratory Rate Value=18.0 Units=/m in 12/13/2018 8462-4 [facility] Blood Pressure-Diastolic Value=78 Un its=mmHg 12/13/2018 8480-6 [facility] Blood Pressure-Systolic Jdoqv=055 Un its=mmHg 12/13/2018 8310-5 [facility] Body Temperature Value=97.6 Units= F 12/13/2018 8867-4 [facility] Heart rate Value=72.0 Units=/min 01/2019 00781-7 [facility] O2 % BldC Oximetry Value=97.0 Units= % 12/13/2018 29841-1 [facility] Weight Nbbog=340.4 Units=Lbs 06/2018 8302-2 [facility] Height Value=66.0 Units=Inches 10/18/2018
--- OUTSIDE RECORDS SUMMARY | 2025-02-22 09:42 | XMS_ITS | Encounter Summary ---
Author Organization [employer] ([place], [place], [place], [place], [place]) Address [address] [place] [address] Care Team Providers Care Diamond Saw Operator Name Role Phone Juan José Kendall MD Primary Care Provider +- [phone] Juan José Kendall MD Unavailable [phone] Encounter Details Date Type Department Care Team (Late st Contact Info) Description 10/01/2018 Transcribed Document [facility] Family Medicine [address] [place] [address] ProviderLaurie MD [address] [place] [address] Social History Tobacco Use Types Packs/Day Years Used Date Smoking Tobacco: Never Assessed Comments Unknown Sex and Gender Information Value Date Recorded Sex Assigned at Not on file Legal Sex Female 2:23 PM CDT Gender Identity Not on file Sexual Orientation Not on file documented as of this encounter Miscellaneous Notes * Cerner Conversion Note - Laurie ProviderMD - 10/01/2018 2:00 AM CDT Fourth Grade Teacher Details Entered On: 10/01/2018 1:42 EDT Performed [...] Joanne Norton, RN - 10/01/2018 1:42 EDT Electronically signed by Aleks [facility] Conversion Gold And Silver Assayer Cerner at 07/24/2022 3:57 PM CDT documented in this encounter Plan of Treatment Not on file documented as of this encounter Visit Diagnoses Not on filedocumented in this encounter Care Teams Diamond Saw Operator Relationship Specialty Start Date End Date Juan José Kendall MD [address] [facility] [address] [place] [address] PCP - General Family Medicine 12/25/22 Juan José Kendall MD 12[address] [facility] [address] [place] [address] Referring Physician Family Medicine 12/25/22 documented as of this encounter
--- OUTSIDE RECORDS SUMMARY | 2025-02-22 09:42 | XMS_ITS | Encounter Summary ---
Author Organization [employer] ([place], [place], [place], [place], [place]) Address [address] [place] [address] Care Team Providers Care Batch Operator Name Role Phone Juan José Kendall MD Primary Care Provider + [phone] Juan José Kendall MD Unavailable [phone] Encounter Details Date Type Department Care Team (Late st Contact Info) Description 09/19/2018 Transcribed Document [facility] [place] Family Medicine [address] [place] [address] ProviderLaurie MD [address] [place] [address] Social History Tobacco Use Types Packs/Day Years [...] on filedocumented in this encounter Care Teams Batch Operator Relationship Specialty Start Date End Date Juan José Kendall MD [address] [place] [address] PCP - General Family Medicine 12/25/22 Juan José Kendall MD [address] [place] [address] Referring Physician Family Medicine 12/25/22 documented as of this encounter
--- OUTSIDE RECORDS SUMMARY | 2025-02-22 09:42 | XMS_ITS | Encounter Summary ---
Author Organization [employer] ([place], [place], [place], [place], [place]) Address [address] [place] [address] Care Team Providers Care Driver'S License Examiner Name Role Phone Juan José Kendall MD Primary Care Provider + [phone] Juan José Kendall MD Unavailable [phone] Encounter Details Date Type Department Care Team (Late st Contact Info) Description 09/08/2018 Transcribed Document [facility] [place] [address] [place] [address] ProviderLaurie MD [address] [place] [address] Social History Tobacco Use Types Packs/Day Years Used Date Smoking Tobacco: Never Assessed Comments Unknown Sex and Gender Information Value Date Recorded Sex Assigned at Not on file Legal Sex Female 2:23 PM CDT Gender Identity Not on file Sexual Orientation Not on file documented as of this encounter Miscellaneous Notes * Cerner Conversion Note - Laurie Garcia MD - 09/08/2018 11:59 AM CDT REBECCA Entered [...] JONES HIDALGO MD-INT - 09/08/2018 11:59 EDT documented in this encounter Plan of Treatment Not on file documented as of this encounter Visit Diagnoses Not on filedocumented in this encounter Care Teams Driver'S License Examiner Relationship Specialty Start Date End Date Juan José Kendall MD [address] [facility] [address] [place] [address] PCP - General Family Medicine 12/25/22 Juan José Kendall MD [address] [facility] [address] [place] [address] Referring Physician Family Medicine 12/25/22 documented as of this encounter
--- OUTSIDE RECORDS SUMMARY | 2025-02-22 09:43 | XMS_ITS | Encounter Summary ---
Author Organization [employer] ([place], [place], [place], [place], [place]) Address [address] [place] [address] Care Team Providers Care Erp Technical Lead Name Role Phone Juan José Kendall MD Primary Care Provider + [phone] Juan José Kendall MD Unavailable [phone] Encounter Details Date Type Department Care Team (Late st Contact Info) Description 09/18/2018 Transcribed Document [facility] [address] [place] [address] ProviderLaurei MD [address] [place] [address] Social History Tobacco Use Types Packs/Day Years [...] Active Orders Reviewed : Yes Kelly Deng, RN - 09/18/2018 5:15 EDT documented in this encounter Plan of Treatment Not on file documented as of this encounter Visit Diagnoses Not on filedocumented in this encounter Care Teams Erp Technical Lead Relationship Specialty Start Date End Date Juan José Kendall MD [address] [place] [address] PCP - General Family Medicine 12/25/22 Juan José Kendall MD [address] [place] [address] Referring Physician Family Medicine 12/25/22 documented as of this encounter
--- OUTSIDE RECORDS SUMMARY | 2025-02-22 09:43 | XMS_ITS | Encounter Summary ---
Author Organization [employer] ([place], [place], [place], [place], [place]) Address [address] [place] [address] Care Team Providers Care Snow Blower Name Role Phone Juan José Kendall MD Primary Care Provider + [phone] Juan José Kendall MD Unavailable [phone] Encounter Details Date Type Department Care Team (Late st Contact Info) Description 09/08/2018 Transcribed Document [facility] [place] Family Medicine [facility] [place] [address] Laurie Garcia MD [address] [place] [address] Social History Tobacco Use Types Packs/Day Years [...] 09/08/2018 9:44 EDT by JAYE MAYFIELD, Care Management-Corporate Development Intern Final Discharge Planning Discharge Arrangements : Patient Post-Acute Information Patient Name: TRUDI BLAIR Gender: Female : [birth year] Age: 63 Years No Post-Acute Placement(s) Listed No Post-Acute Service(s) Listed No [place] Referral(s) Listed Transportation Needs : Ambulance Discharge Transportation Arrangement Cmt : ambulance arranged for 4:30 Discharge To Care Management : [id number] JAYE MAYFIELD, Care Management-Corporate Development Intern - 09/08/2018 9:44 EDT Final Narrative Note Final Narrative Note : [facility] at [facility] today via ambulance transport at 4:30 JAYE MAYFIELD, Care Management-Corporate Development Intern - 09/08/2018 9:44 EDT Electronically signed by [facility] Conversion Rivet Maker Cerner at 07/24/2022 3:42 PM CDT documented in this encounter Plan of Treatment Not on file documented as of this encounter Visit Diagnoses Not on filedocumented in this encounter Care Teams Snow Blower Relationship Specialty Start Date End Date Juan José Kendall MD [address] [place] [address] [address] [place] [address] PCP - General Family Medicine 12/25/22 [place] [address] [place] [address] [address] [place] [address] Referring Physician Family Medicine 12/25/22 documented as of this encounter
--- OUTSIDE RECORDS SUMMARY | 2025-02-22 09:44 | XMS_ITS | Encounter Summary ---
Author Organization [employer] ([place], [place], [place], [place], [place]) Address [address] [place] [address] Care Team Providers Care Copy Director Name Role Phone Juan José Kendall MD Primary Care Provider +- [phone] Juan José Kendall MD Unavailable [phone] Encounter Details Date Type Department Care Team (Late st Contact Info) Description 09/17/2018 Transcribed Document [facility] [place] [address] [place] [address] ProviderLaurie MD [address] [place] [address] Social History Tobacco Use Types Packs/Day Years Used Date Smoking Tobacco: Never Assessed Comments Unknown Sex and Gender Information Value Date Recorded Sex Assigned at Not on file Legal Sex Female 2:23 PM CDT Gender Identity Not on file Sexual Orientation Not on file documented as of this encounter Miscellaneous Notes * Cerner Conversion Note - Laurie Garcia MD - 09/17/2018 9:00 AM CDT Pain Assessment Entered On: 09/17/2018 13:34 EDT Performed On: 09/17/2018 10:47 EDT by Bambi Rolon Rn Intervention Information: acetaminophen Performed by Bambi Rolon Rn on 09/17/2018 09:47:00 EDT acetaminophen,500mg Oral Pain Assessment Pain Assessment : Follow-up assessment Pain Scale Goal : 3 Pain Improved by Intervention : Yes Bambi Rolon Rn - 09/17/2018 13:33 EDT Electronically signed by Aleks [facility] Conversion Data Quality Consultant Cerner at 07/24/2022 3:47 PM CDT documented in this encounter Plan of Treatment Not on file documented as of this encounter Visit Diagnoses Not on filedocumented in this encounter Care Teams Copy Director Relationship Specialty Start Date End Date Juan José Kendall MD [address] [facility] [address] [place] [address] PCP - General Family Medicine 12/25/22 Juan José Kendall MD [address] [facility] [address] [place] [address] Referring Physician Family Medicine 12/25/22 documented as of this encounter
--- OUTSIDE RECORDS SUMMARY | 2025-02-22 09:44 | XMS_ITS | Encounter Summary ---
Author Organization [employer] ([place], [place], [place], [place], [place]) Address [address] [place] [address] Care Team Providers Care Home Health Aid Name Role Phone Juan José Kendall MD Primary Care Provider + [phone] Juan José Kendall MD Unavailable [phone] Encounter Details Date Type Department Care Team (Late st Contact Info) Description 10/01/2018 Transcribed Document [facility] [place] [address] [place] [address] ProviderLaurie MD [address] [place] [address] Social History Tobacco Use Types Packs/Day Years [...] filedocumented in this encounter Care Teams Home Health Aid Relationship Specialty Start Date End Date Juan José Kendall MD [address] [place] [address] PCP - General Family Medicine 12/25/22 Juan José Kendall MD [address] [place] [address] [place] [address] Referring Physician Family Medicine 12/25/22 documented as of this encounter
--- OUTSIDE RECORDS SUMMARY | 2025-02-22 09:44 | XMS_ITS | Encounter Summary ---
Author Organization [employer] ([place], [place], [place], [place], [place]) Address [address] [place] [address] Care Team Providers Care Toy Electric Train Repairer Name Role Phone Juan José Kendall MD Primary Care Provider +- [phone] Juan José Kendall MD Unavailable [phone] Encounter Details Date Type Department Care Team (Late st Contact Info) Description 10/01/2018 Transcribed Document [facility] [place] [facility] [place] [address] ProviderLaurie MD [address] [place] [address] Social History Tobacco Use Types Packs/Day Years Used Date Smoking Tobacco: Never Assessed Comments Unknown Sex and Gender Information Value Date Recorded Sex Assigned at Not on file Legal Sex Female 2:23 PM CDT Gender Identity Not on file Sexual Orientation Not on file documented as of this encounter Miscellaneous Notes * Cerner Conversion Note - Laurie Garcia MD - 10/01/2018 6:35 PM CDT Patient: TRUDI [...] repair. She was more recently admitted to [facility] x2 earlier this month on 08/16 [...] wound care. She was transferred to [facility] today for a [...] the antibiotics without any adverse side effects. [place] removed yesterday at her incision site remains [...] Guerrero would like her to see an rac specialist at after her discharge from here. She will require subsequent left knee reconstructive surgery. ROS: As above Past Medical History: Arthritis Back pain GERD HLD NUVIA HTN Stress incontinence Past Surgical History: Left TKA, 2017 left patellar tendon repair, 06/2018 lumbar fusion hysterectomy right TKA right patellar tendon repair Family History: CAD HTN Cancer Social History: . lives in [place]. No tobacco, ETOH, or illicit drug use. [...] Apical HR 79 (OCT 01 09:10) 79 (SEP 29 09:10) 79 (SEP 29 09:10) Mon HR 74 (SEP 29 15:00) 74 (SEP 29 15:00) 86 (SEP 28 23:12) Resp Rate 18 (SEP 28 23:12) 18 (SEP 28 19:26) 18 (SEP 28 19:26) SBP H 149 (SEP 29 15:00) H 144 (EDGARD 28 23:12) H 164 (SEP 29 09:10) DBP 67 (SEP 29 15:00) L 58 (OCT 01 09:10) 68 (SEP 30 19:26) MAP 87 (SEP 29 15:00) 80 (SEP 28 23:12) 89 (SEP 28 19:26) SpO2 98 (SEP 29 15:00) 97 [...] (EDGARD 28) 112 (EDGARD 27) H 113 (EDAGRD 26) CO2 26 (EDGARD 29) 27 (EDGARD [...] 24) L 5.0 (EDGARD 17) L 5.0 (SEP 16) ALB L 2.3 (SEP 29) L 2.2 [...] assessment at for complex left knee reconstruction. Electronically signed by Adia Fink Conversion New Client Banking Services Clerk Cerner at 07/24/2022 3:32 PM CDT documented in this encounter Plan of Treatment Not on file documented as of this encounter Visit Diagnoses Not on filedocumented in this encounter Care Teams Toy Electric Train Repairer Relationship Specialty Start Date End Date Juan José Kendall MD [address] [place] [address] PCP - General Family Medicine 12/25/22 Juan José Kendall MD [address] [facility] [address] [place] [phone] Referring Physician Family Medicine 12/25/22 documented as of this encounter
--- OUTSIDE RECORDS SUMMARY | 2025-02-22 09:44 | XMS_ITS | Encounter Summary ---
Author Organization [employer] ([place], [place], [place], [place], [place]) Address [address] [place] [address] Care Team Providers Care Siebel Solution Architect Name Role Phone Juan José Kendall MD Primary Care Provider +- [phone] Juan José Kendall MD Unavailable [phone] Encounter Details Date Type Department Care Team (Late st Contact Info) Description 10/01/2018 Transcribed Document [facility] [place] Medicine [address] [place] [address] ProviderLaurie MD [address] [place] [address] Social History Tobacco Use Types Packs/Day Years [...] on filedocumented in this encounter Care Teams Siebel Solution Architect Relationship Specialty Start Date End Date Juan José Kendall MD [address] [facility] [address] [place] [address] PCP - General Family Medicine 12/25/22 Juan José Kendall MD 12[address] [facility] [address] [place] [address] Referring Physician Family Medicine 12/25/22 documented as of this encounter
--- OUTSIDE RECORDS SUMMARY | 2025-02-22 09:44 | XMS_ITS | Encounter Summary ---
Author Organization [employer] ([place], [place], [place], [place], [place]) Address [address] [place] [address] Care Team Providers Care Seal Extrusion Operator Name Role Phone Juan José Kendall MD Primary Care Provider +- [phone] Juan José Kendall MD Unavailable [phone] Encounter Details Date Type Department Care Team (Late st Contact Info) Description 09/08/2018 Transcribed Document [facility] [place] [address] [place] [address] Laurie Garcia MD [address] [place] [address] Social History Tobacco Use Types Packs/Day Years [...] : Bed scale Weight Entry Format : [place] Clinical Dosing Weight : 139.55 kg Weight, Pounds : 307 lb Body Surface Area (BSA) : 2.4 m2 Body Mass Index : 49.7 kg/m2 (>HHI) [place] Body Weight : 59 kg SAMANTHA HONEYCUTT RN - 09/08/2018 18:43 EDT Electronically signed by Aleks [facility] Conversion Queen'S Counsel Cerner at 07/24/2022 3:42 PM CDT documented in this encounter Plan of Treatment Not on file documented as of this encounter Visit Diagnoses Not on filedocumented in this encounter Care Teams Seal Extrusion Operator Relationship Specialty Start Date End Date Juan José Kendall MD 1210 [facility] [address] [place] [address] PCP - General Family Medicine 12/25/22 Juan José Kendall MD [address] [facility] [address] [place] [address] Referring Physician Family Medicine 12/25/22 documented as of this encounter
--- OUTSIDE RECORDS SUMMARY | 2025-02-22 09:44 | XMS_ITS | Encounter Summary ---
Author Organization [employer] ([place], [place], [place], [place], [place]) Address [address] [place] [address] Care Team Providers Care Peoplesoft Name Role Phone Juan José Kendall MD Primary Care Provider +- [phone] Juan José Kendall MD Unavailable [phone] Encounter Details Date Type Department Care Team (Late st Contact Info) Description 09/08/2018 Transcribed Document [facility] [place] Family [place] [facility] [place] [address] ProviderLaurie MD [address] [place] [address] Social History Tobacco Use Types Packs/Day Years [...] F/u and consult received for pressure ulcer. Review Manager noted Cr with continued slow downward trend, nonoliguric UOP with diuresis (on albumin and bumex, edema better). Case management noted referral pending insurance approval for LTAC. Dr Porter noted jail plan for wound is either amputation versus [...] on filedocumented in this encounter Care Teams Peoplesoft Relationship Specialty Start Date End Date Juan José Kendall MD [address] [facility] [address] [place] [address] PCP - General Family Medicine 12/25/22 Juan José Kendall MD 12[address] [facility] [address] [place] [address] Referring Physician Family Medicine 12/25/22 documented as of this encounter
--- OUTSIDE RECORDS SUMMARY | 2025-02-22 09:44 | XMS_ITS | Encounter Summary ---
Author Organization [employer] ([place], [place], [place], [place], [place]) Address [address] [place] [address] Care Team Providers Care Gold Charmer Name Role Phone Juan José Kendall MD Primary Care Provider +- [phone] Juan José Kendall MD Unavailable [phone] Encounter Details Date Type Department Care Team (Late st Contact Info) Description 09/08/2018 Transcribed Document [facility] [place] [facility] [place] [address] ProviderLaurie MD [address] [place] [address] Social History Tobacco Use Types Packs/Day Years Used Date Smoking Tobacco: Never Assessed Comments Unknown Sex and Gender Information Value Date Recorded Sex Assigned at Not on file Legal Sex Female 2:23 PM CDT Gender Identity Not on file Sexual Orientation Not on file documented as of this encounter Miscellaneous Notes * Cerner Conversion Note - Laurie ProviderMD - 09/08/2018 6:19 PM CDT Admission [...] #2 Relationship : son Primary Language : Jamaican Preferred Communication Mode : Verbal Communication Barrier : Renate Albarran RN - 09/08/2018 18:31 EDT Fall Risk [...] Scale Risk Level : 25-45 Medium Risk [place] Fall Interventions : Adequate lighting, Assistive devices [...] Source : Stated Height Entry Format : [place] Height, Feet : 5 ft(Converted to: 152 cm, 60 Inch) Height, Inches : 6 Inch(Converted to: 0 ft 6 Inch, 15.24 cm) Clinical Height : 167.64 cm Weight Source : Bed scale Weight Entry Format : [place] Clinical Dosing Weight : 139.55 kg Weight, Pounds : 307 lb Weight, Ounces : 0 oz Body Surface Area (BSA) : 2.4 m2 Body Mass Index : 49.7 kg/m2 (>HHI) [place] Body Weight : 59 kg Renate Wilson [...] Renate Wilson RN - 09/08/2018 18:31 EDT documented in this encounter Plan of Treatment Not on file documented as of this encounter Visit Diagnoses Not on filedocumented in this encounter Care Teams Gold Charmer Relationship Specialty Start Date End Date Juan José Kendall MD [address] [facility] [address] [place] [address] PCP - General Family Medicine 12/25/22 Juan José Kendall MD 12[address] [facility] [address] [place] [phone] Referring Physician Family Medicine 12/25/22 documented as of this encounter
--- OUTSIDE RECORDS SUMMARY | 2025-02-22 09:44 | XMS_ITS | Encounter Summary ---
Author Organization [employer] ([place], [place], [place], [place], [place]) Address [address] [place] [address] Care Team Providers Care Retail Office Associate Name Role Phone Juan José Kendall MD Primary Care Provider +- [phone] Juan José Kendall MD Unavailable [phone] Encounter Details Date Type Department Care Team (Late st Contact Info) Description 09/19/2018 Transcribed Document [facility] [place] [address] [place] [address] ProviderLaurie MD [address] [place] [address] Social History Tobacco Use Types Packs/Day Years Used Date Smoking Tobacco: Never Assessed Comments Unknown Sex and Gender Information Value Date Recorded Sex Assigned at Not on file Legal Sex Female 2:23 PM CDT Gender Identity Not on file Sexual Orientation Not on file documented as of this encounter Miscellaneous Notes * Cerner Conversion Note - Laurie ProviderMD - 09/19/2018 2:00 AM CDT Shape Brick Molder Details Entered On: 09/19/2018 2:07 EDT Performed [...] 09/19/2018 2:07 EDT Electronically signed by Aleks [facility] Conversion Superintendent Oil Well Services Cerner at 07/24/2022 3:32 PM CDT documented in this encounter Plan of Treatment Not on file documented as of this encounter Visit Diagnoses Not on filedocumented in this encounter Care Teams Retail Office Associate Relationship Specialty Start Date End Date Juan José Kendall MD 12[address] [facility] [address] [place] [address] PCP - General Family Medicine 12/25/22 Juan José Kendall MD 12[address] [facility] [address] [place] [address] Referring Physician Family Medicine 12/25/22 documented as of this encounter
--- OUTSIDE RECORDS SUMMARY | 2025-02-22 09:44 | XMS_ITS | Encounter Summary ---
Author Organization [employer] ([place], [place], [place], [place], [place]) Address [address] [place] [address] Care Team Providers Care Assembler Sandal Parts Name Role Phone Juan José Kendall MD Primary Care Provider +- [phone] Juan José Kendall MD Unavailable [phone] Encounter Details Date Type Department Care Team (Late st Contact Info) Description 09/18/2018 Transcribed Document [facility] [place] [address] [place] [address] ProviderLaurie MD [address] [place] [address] Social History Tobacco Use Types Packs/Day Years [...] filedocumented in this encounter Care Teams Assembler Sandal Parts Relationship Specialty Start Date End Date Juan José Kendall MD 1210 [facility] [address] [place] [address] PCP - General Family Medicine 12/25/22 Juan José Kendall MD 12[address] [facility] [address] [place] [address] Referring Physician Family Medicine 12/25/22 documented as of this encounter
--- OUTSIDE RECORDS SUMMARY | 2025-02-22 09:44 | XMS_ITS | Encounter Summary ---
Author Organization [employer] ([place], [place], [place], [place], [place]) Address [address] [place] [address] Care Team Providers Care Medical Fee Clerk Name Role Phone Juan José Kendall MD Primary Care Provider +- [phone] Juan José Kendall MD Unavailable [phone] Encounter Details Date Type Department Care Team (Late st Contact Info) Description 02/01/2019 Transcribed Document [facility] [place] [address] [place] [address] ProviderLaurie MD [address] [place] [address] Social History Tobacco Use Types Packs/Day Years Used Date Smoking Tobacco: Never Assessed Comments Unknown Sex and Gender Information Value Date Recorded Sex Assigned at Not on file Legal Sex Female 2:23 PM CDT Gender Identity Not on file Sexual Orientation Not on file documented as of this encounter Miscellaneous Notes * Cerner Conversion Note - Laurie Garcia MD - 02/01/2019 10:05 AM CDT Treatment Intervention, PT Entered On: 02/01/2019 13:33 EDT Performed On: 02/01/2019 10:05 EDT by Bethany Pope Vp Strategic Partnerships Lead General Information, PT Visit Type, PT : Treatment Note Patient Orders : Order Date Order Ordering 01/30/2019 19:01 PT Evaluation and Treatment Ordered By: JONG SANTACRUZ MD-ORT 01/30/2019 19:01 PT Treatment Instructions Ordered By: JONG SANTACRUZ MD-ORJasmine 01/30/2019 19:01 [...] measures Isolation Maintained : Contact Bethany Pope Vp Strategic Partnerships Lead - 02/01/2019 13:23 EDT General Status Patient Received Status : Supine in bed, Bed alarm activated, Other: SCUDS, IV, . Treatment Start Time : 02/01/2019 9:36 EDT Patient Left Status : Supine in bed, Bed alarm activated, RN/PCT informed, Family/Visitors at bedside, Communication board completed, All needs met and within reach, Other: SCUDS, IV. RN/PCT Informed Comment : LISBETH muñoz PT. Treatment End Time : 02/01/2019 10:05 EDT Treatment Time : 29 Minute(s) Bethany Pope Vp Strategic Partnerships Lead - 02/01/2019 13:23 EDT Edu Topics [...] Needs further teaching, Needs reinforcement Bethany Pope Vp Strategic Partnerships Lead - 02/01/2019 13:23 EDT Plan of Care, PT PT Tx Plan/Goals Established w Patient : Yes Bethany Pope Vp Strategic Partnerships Lead - 02/01/2019 13:23 EDT Automotive Sales Associate Goals Other PT LTG Grid Goal #1 Goal #2 Other : Patient will complete bed to chair transfer with RW and CGA/min assist x 1 person. Patient will complete supine to sit with leg assistant store director and CGA. Date to Meet : 02/03/2019 EDT 02/03/2019 EDT Goal Status : Progressing, continue Progressing, continue Bethany Pope Vp Strategic Partnerships Lead - 02/01/2019 13:23 EDT Bethany Pope Vp Strategic Partnerships Lead - 02/01/2019 13:23 EDT Treatment Note [...] fall risk. Pt could not safely transfer [facility] after commode transfer due to fatigue and poor baalnce. Assessment : Pt did not meet any LTGs. She is very weak and high fall risk. Plan for Treatment : Continue per POC. Bethany Pope Vp Strategic Partnerships Lead - 02/01/2019 13:23 EDT Pain Assessment Pain Scaled Used : FACES Pain Score Pre-Intervention : 4 Pain Score During-Intervention : 4 Pain Score Post-Intervention. : 4 Bethany Pope Vp Strategic Partnerships Lead - 02/01/2019 13:23 EDT Image 1 - Images currently included in the form version of this document have not been included in the text rendition version of the form. [facility] PT Charges PT Ther Activities Ea 15 Min : 2 Bethany Pope Vp Strategic Partnerships Lead - 02/01/2019 13:23 EDT documented in this encounter Plan of Treatment Not on file documented as of this encounter Visit Diagnoses Not on filedocumented in this encounter Care Teams Medical Fee Clerk Relationship Specialty Start Date End Date Juan José Kendall MD [address] [place] [address] PCP - General Family Medicine 12/25/22 Juan José Kendall MD [address] [place] [address] Referring Physician Family Medicine 12/25/22 documented as of this encounter
--- OUTSIDE RECORDS SUMMARY | 2025-02-22 09:45 | XMS_ITS | Encounter Summary ---
Author Organization [employer] ([place], [place], [place], [place], [place]) Address [address] [place] [address] Care Team Providers Care Public Safety Teacher Name Role Phone Juan José Kendall MD Primary Care Provider +- [phone] Juan José Kendall MD Unavailable [phone] Encounter Details Date Type Department Care Team (Late st Contact Info) Description 02/01/2019 Transcribed Document [facility] [place] [address] [place] [address] Laurie Garcia MD [address] [place] [address] Social History Tobacco Use Types Packs/Day Years [...] - 02/01/2019 6:05 PM CDT Patient: TRUDI LBAIR Age: 63 years Sex: Female : 1955 [...] been modified into Nucynta and oral Dilaudid Has low H&H of 7.6 and 24.3 [...] Topical, Daily phenol 1.4% throat spray 5 [place], Oral, Q2H scopolamine 1.5 mg/72 hr patch [...] % LOW Lymph # 1.10 K/uL LOW [place] % 14.4 % HI [place] # 1.20 K/uL HI Eos % 1.0 [...] precautions. Stress ulcer prophylaxis.. Electronically signed by Aleks [facility] Conversion Typewriter Repairer Cerner at 07/24/2022 3:41 PM CDT documented in this encounter Plan of Treatment Not on file documented as of this encounter Visit Diagnoses Not on filedocumented in this encounter Care Teams Public Safety Teacher Relationship Specialty Start Date End Date Juan José Kendall MD [address] [facility] [address] [place] [address] PCP - General Family Medicine 12/25/22 Juan José Kendall MD [address] [place] [facility] [address] [place] [address] Referring Physician Family Medicine 12/25/22 documented as of this encounter
--- OUTSIDE RECORDS SUMMARY | 2025-02-22 09:45 | XMS_ITS | Encounter Summary ---
Author Organization [employer] ([place], [place], [place], [place], [place]) Address [address] [place] [address] Care Team Providers Care Odd Piece Checker Name Role Phone Juan José Kendall MD Primary Care Provider + [phone] Juan José Kendall MD Unavailable [phone] Encounter Details Date Type Department Care Team (Late st Contact Info) Description 10/01/2018 Transcribed Document [facility] [place] Family Medicine [address] [place] [address] ProviderLaurie MD [address] [place] [address] Social History Tobacco Use Types Packs/Day Years Used Date Smoking Tobacco: Never Assessed Comments Unknown Sex and Gender Information Value Date Recorded Sex Assigned at Not on file Legal Sex Female 2:23 PM CDT Gender Identity Not on file Sexual Orientation Not on file documented as of this encounter Miscellaneous Notes * Byron Conversion Note - Historical ProviderMD - 10/01/2018 5:00 PM CDT Chart Check - Review Order Profile Entered On: 10/01/2018 15:27 EDT Performed On: 10/01/2018 17:00 EDT by SAMANTHA HONEYCUTT RN Chart Check Powerplans Initiated/Discontinued as Appropriate : Yes All Active Orders Reviewed : Yes SAMANTHA HONEYCUTT RN - 10/01/2018 15:27 EDT Electronically signed by Aleks [facility] Conversion Ob Gyn Physician Assistant Cerner at 07/24/2022 3:38 PM CDT documented in this encounter Plan of Treatment Not on file documented as of this encounter Visit Diagnoses Not on filedocumented in this encounter Care Teams Odd Piece Checker Relationship Specialty Start Date End Date Juan José Kendall MD [address] [facility] [address] [place] [address] PCP - General Family Medicine 12/25/22 Juan José Kendall MD [address] [place] [address] Referring Physician Family Medicine 12/25/22 documented as of this encounter
--- OUTSIDE RECORDS SUMMARY | 2025-02-22 09:45 | XMS_ITS | Encounter Summary ---
Author Organization [employer] ([place], [place], [place], [place], [place]) Address [address] [place] [address] Care Team Providers Care Practice Lead Name Role Phone Juan José Kendall MD Primary Care Provider + [phone] Juan José Kendall MD Unavailable [phone] Encounter Details Date Type Department Care Team (Late st Contact Info) Description 09/30/2018 Transcribed Document [facility] [place] Family Medicine [address] [place] [address] ProviderLaurie MD [address] [place] [address] Social History Tobacco Use Types Packs/Day Years [...] On: 09/30/2018 14:57 EDT by Nery Mckee Snow Shoveler Nutrition Assessment Current Nutrition Regimen Comment : [...] Nery Mckee Dietician - 09/30/2018 11:45 EDT Electronically signed by Aleks, [facility] Conversion Baker Pastry Cerner at 07/24/2022 3:51 PM CDT documented in this encounter Plan of Treatment Not on file documented as of this encounter Visit Diagnoses Not on filedocumented in this encounter Care Teams Practice Lead Relationship Specialty Start Date End Date Juan José Kendall MD [address] [facility] [address] [place] [address] PCP - General Family Medicine 12/25/22 Juan José Kendall MD [address] [place] [address] Referring Physician Family Medicine 12/25/22 documented as of this encounter
--- OUTSIDE RECORDS SUMMARY | 2025-02-22 09:45 | XMS_ITS | Encounter Summary ---
Author Organization [employer] ([place], [place], [place], [place], [place]) Address [address] [place] [address] Care Team Providers Care Ring Cutter Lathe Operator Name Role Phone Juan José Kendall MD Primary Care Provider + [phone] Juan José Kendall MD Unavailable [phone] Encounter Details Date Type Department Care Team (Late st Contact Info) Description 09/16/2018 Transcribed Document [facility] [place] Family Medicine [address] [place] [address] ProviderLaurie MD [address] [place] [address] Social History Tobacco Use Types Packs/Day Years [...] Yes All Active Orders Reviewed : Yes iLnh Honeycutt RN - 09/16/2018 5:35 EDT documented in this encounter Plan of Treatment Not on file documented as of this encounter Visit Diagnoses Not on filedocumented in this encounter Care Teams Ring Cutter Lathe Operator Relationship Specialty Start Date End Date Juan José Kendall MD [address] [place] [address] PCP - General Family Medicine 12/25/22 Juan José Kendall MD [address] [place] [address] [place] [address] Referring Physician Family Medicine 12/25/22 documented as of this encounter
--- OUTSIDE RECORDS SUMMARY | 2025-02-22 09:45 | XMS_ITS | Encounter Summary ---
Author Organization [employer] ([place], [place], [place], [place], [place]) Address [address] [place] [address] Care Team Providers Care Supervisor Industrial Arts Education Name Role Phone Juan José Kendall MD Primary Care Provider +- [phone] Juan José Kendall MD Unavailable [phone] Encounter Details Date Type Department Care Team (Late st Contact Info) Description 09/30/2018 Transcribed Document [facility] [place] Family Medicine [address] [place] [address] ProviderLaurie MD [address] [place] [address] Social History Tobacco Use Types Packs/Day Years Used Date Smoking Tobacco: Never Assessed Comments Unknown Sex and Gender Information Value Date Recorded Sex Assigned at Not on file Legal Sex Female 2:23 PM CDT Gender Identity Not on file Sexual Orientation Not on file documented as of this encounter Miscellaneous Notes * Cerner Conversion Note - Laurie ProviderMD - 09/30/2018 9:00 AM CDT Pain [...] filedocumented in this encounter Care Teams Supervisor Industrial Arts Education Relationship Specialty Start Date End Date Juan José Kendall MD [address] [facility] [address] [place] [address] PCP - General Family Medicine 12/25/22 [place] [address] [place] [address] [address] [place] [address] Referring Physician Family Medicine 12/25/22 documented as of this encounter
--- OUTSIDE RECORDS SUMMARY | 2025-02-22 09:45 | XMS_ITS | Encounter Summary ---
Author Organization [employer] ([place], [place], [place], [place], [place]) Address [address] [place] [address] Care Team Providers Care Reading Assistant Name Role Phone Juan José Kendall MD Primary Care Provider + [phone] Juan José Kendall MD Unavailable [phone] Encounter Details Date Type Department Care Team (Late st Contact Info) Description 02/01/2019 Transcribed Document [facility] [place] [address] [place] [address] ProviderLaurie MD [address] [place] [address] Social History Tobacco Use Types Packs/Day Years Used Date Smoking Tobacco: Never Assessed Comments Unknown Sex and Gender Information Value Date Recorded Sex Assigned at Not on file Legal Sex Female 2:23 PM CDT Gender Identity Not on file Sexual Orientation Not on file documented as of this encounter Miscellaneous Notes * Cerner Conversion Note - Laurie ProviderMD - 02/01/2019 4:25 PM CDT Initial Discharge Planning Entered On: 02/01/2019 16:27 EDT Performed On: 02/01/2019 16:25 EDT by JAYE MAYFIELD Care Management-Processing Mgr Initial Assessment I Previously Documented Living Environment : No qualifying data available. Living Situation : Home Patient Lives With : Caregiver(s), Spouse Emergency Contact #1 : dmitry blair Emergency Contact #1 Phone Number : in waiting room Emergency Contact #1 Relationship : Emergency Contact #2 : na Emergency Contact #2 Phone Number : na Emergency Contact #2 Relationship : na JAYE MAYFIELD Care Management-Processing Mgr - 02/01/2019 16:25 EDT Initial Assessment II Sensory and Motor Deficits : Other: bilateral quad tendon rupture Current Home Treatments and Equipment : Bedside commode, Walker, Wheelchair, Other: lift chair JAYE MAYFIELD Care Management-Processing Mgr - 02/01/2019 16:25 EDT Discharge Needs I Anticipated Discharge Date : 02/01/2019 EDT Anticipated Discharge To, CM : Home with family care, Home with home health Current Home Treatment/Equipment : Current Home Treatment/Equipment No qualifying data available. Post Acute/Home Treatments : None Documentation Status Complete : Yes JAYE MAYFIELD Care Management-Processing Mgr - 02/01/2019 16:25 EDT Discharge Needs II Professional Skilled Services : Professional Skilled Services No qualifying data available. Discharge Options Discussed with Patient : Home Health JAYE MAYFIELD Care Management-Processing Mgr - 02/01/2019 16:25 EDT Electronically signed by Aleks [facility] Conversion Erp Technical Lead Cerner at 07/24/2022 3:38 PM CDT documented in this encounter Plan of Treatment Not on file documented as of this encounter Visit Diagnoses Not on filedocumented in this encounter Care Teams Reading Assistant Relationship Specialty Start Date End Date Juan José Kendall MD [address] [facility] [address] [place] [address] PCP - General Family Medicine 12/25/22 Juan José Kendall MD [address] [facility] [address] [place] [address] Referring Physician Family Medicine 12/25/22 documented as of this encounter
--- OUTSIDE RECORDS SUMMARY | 2025-02-22 09:45 | XMS_ITS | Encounter Summary ---
Author Organization [employer] ([place], [place], [place], [place], [place]) Address [address] [place] [address] Care Team Providers Care Wire Galvanizer Name Role Phone Juan José Kendall MD Primary Care Provider + [phone] Juan José Kendall MD Unavailable [phone] Encounter Details Date Type Department Care Team (Late st Contact Info) Description 09/07/2018 Transcribed Document [facility] [place] [address] [place] [address] ProviderLaurie MD [address] [place] [address] Social History Tobacco Use Types Packs/Day Years Used Date Smoking Tobacco: Never Assessed Comments Unknown Sex and Gender Information Value Date Recorded Sex Assigned at Not on file Legal Sex Female 2:23 PM CDT Gender Identity Not on file Sexual Orientation Not on file documented as of this encounter Miscellaneous Notes * Cerner Conversion Note - Laurie Garcia MD - 09/07/2018 10:38 AM CDT On Going Discharge Planning Entered On: 09/07/2018 10:39 EDT Performed On: 09/07/2018 10:38 EDT by JAYE MAYFIELD Care Management-Porcelain Enamel Repairer Care Management Progress Note Discharge Arrangements : [...] Acute Providers : Yes JAYE MAYFIELD, Care Management-Porcelain Enamel Repairer - 09/07/2018 10:38 EDT Electronically signed by Aleks, [facility] Conversion Hydraulic Controls Technician Cerner at 07/24/2022 3:33 PM CDT documented in this encounter Plan of Treatment Not on file documented as of this encounter Visit Diagnoses Not on filedocumented in this encounter Care Teams Wire Galvanizer Relationship Specialty Start Date End Date Juan José Kendall MD [address] [place] [facility] [address] [place] [address] PCP - General Family Medicine 12/25/22 Juan José Kendall MD [address] [place] [facility] [address] [place] [address] Referring Physician Family Medicine 12/25/22 documented as of this encounter
--- OUTSIDE RECORDS SUMMARY | 2025-02-22 09:45 | XMS_ITS | Encounter Summary ---
Author Organization [employer] ([place], [place], [place], [place], [place]) Address [address] [place] [address] Care Team Providers Care Manager Talent Management Name Role Phone Juan José Kendall MD Primary Care Provider + [phone] Juan José Kendall MD Unavailable [phone] Encounter Details Date Type Department Care Team (Late st Contact Info) Description 09/16/2018 Transcribed Document [facility] [place] Family Medicine [address] [place] [address] ProviderLaurie MD [address] [place] [address] Social History Tobacco Use Types Packs/Day Years Used Date Smoking Tobacco: Never Assessed Comments Unknown Sex and Gender Information Value Date Recorded Sex Assigned at Not on file Legal Sex Female 2:23 PM CDT Gender Identity Not on file Sexual Orientation Not on file documented as of this encounter Miscellaneous Notes * Cerner Conversion Note - Laurie ProviderMD - 09/16/2018 10:15 AM CDT Therapy [...] 09/16/2018 10:15 EDT Electronically signed by Aleks [facility] Conversion Sawmill Equipment Operator Cerner at 07/24/2022 3:59 PM CDT documented in this encounter Plan of Treatment Not on file documented as of this encounter Visit Diagnoses Not on filedocumented in this encounter Care Teams Manager Talent Management Relationship Specialty Start Date End Date Juan José Kendall MD [address] [place] [facility] [address] [place] [address] PCP - General Family Medicine 12/25/22 Juan José Kendall MD [address] [place] [facility] [address] [place] [address] Referring Physician Family Medicine 12/25/22 documented as of this encounter
--- OUTSIDE RECORDS SUMMARY | 2025-02-22 09:45 | XMS_ITS | Encounter Summary ---
Author Organization [employer] ([place], [place], [place], [place], [place]) Address [address] [place] [address] Care Team Providers Care All Purpose Clerk Name Role Phone Juan José Kendall MD Primary Care Provider + [phone] Juan José Kendall MD Unavailable [phone] Encounter Details Date Type Department Care Team (Late st Contact Info) Description 09/07/2018 Transcribed Document [facility] [place] [address] [place] [address] ProviderLaurie MD [address] [place] [address] Social History Tobacco Use Types Packs/Day Years [...] Maximum Temp 97.9 (SEP 07 05:30) 97.9 (EDGARD 05 05:30) 98.1 (SEP 04 15:00) Apical HR 75 (EDGARD 04 08:51) 75 (EDGARD 04 08:51) 75 (EDGARD 04 08:51) Mon HR 68 (SEP 07 05:30) 61 (SEP 05 03:18) 84 (SEP 04 18:28) Resp Rate 16 (SEP 07 05:30) 16 (SEP 06 11:00) 16 (SEP 04 11:00) SBP 133 (SEP 07 05:30) 129 (SEP 06 18:28) H 148 (SEP 06 11:00) DBP 63 (SEP 05 05:30) L 53 (SEP 04 18:28) 76 (SEP 04 11:00) MAP 79 (SEP 07 05:30) 72 (SEP 04 18:28) 93 (SEP 06 11:00) SpO2 96 (SEP 07 05:30) L 93 (SEP 06 11:00) 97 (SEP 04 21:59) Intake & Output Totals Last 24 [...] 7.8 (EDGARD 03) L 7.7 (SEP 02) HCT L 23.8 (EDGARD 05) L 24.8 (EDGARD 04) L 24.9 (EDGARD 03) L 24.2 (EDGARD 02) Plt 267 (EDGARD 05) 280 (EDGARD 04) 222 (EDGARD 03) 170 (EDGARD 02) Na 145 (EDGARD 05) 146 (EDGARD 04) 143 (EDGARD 03) 146 (EDGARD 02) K L 3.0 (EDGARD 05) L 3.3 (EDGARD 04) L 3.2 (EDGARD 03) L 3.2 (EDGARD 03) Cl 111 (SEP 05) 112 (SEP 04) 111 (SEP 03) H 114 (SEP 02) CO2 27 (SEP 05) 27 (SEP 04) 23 (SEP 05) 23 (SEP 04) BUN H 29 (SEP 05) H 24 (SEP 04) H 26 (SEP 03) H 28 (SEP 04) Cr H 1.76 (SEP 05) H 1.79 (SEP 04) H 1.87 (SEP 03) H 1.90 (SEP 04) Glu R 86 (SEP 07) 86 (SEP 04) 91 (SEP 03) 94 [...] ALK P 60 (SEP 07) 62 (SEP 04) 60 (SEP 03) 57 (SEP 04) T Bili 0.5 (SEP 07) 0.4 (SEP 06) 0.5 (SEP 05) 0.4 (SEP 04) PTN L 5.0 (SEP 07) L 4.5 (SEP 04) L 4.6 (SEP 05) L 4.2 (SEP 04) ALB L 3.0 (SEP 07) L 2.3 (SEP 06) L 2.3 (SEP 05) L 2.0 (SEP 04) Impression and Plan ARF: Cr leveled at 1.7 withfurther neg volume and nonoliguric UOP with diuresis. Cr was intially elevated to 2.4 on admit from [facility] 0.9 06/2018. pt with multiple [...] evaluating. getting abx Electronically signed by Aleks, [facility] Conversion Beater Worker Helper Cerner at 07/24/2022 3:36 PM CDT documented in this encounter Plan of Treatment Not on file documented as of this encounter Visit Diagnoses Not on filedocumented in this encounter Care Teams All Purpose Clerk Relationship Specialty Start Date End Date Juan José Kendall MD [address] [facility] [address] [place] [address] PCP - General Family Medicine 12/25/22 Juan José Kendall MD [address] [facility] [address] [place] [address] Referring Physician Family Medicine 12/25/22 documented as of this encounter
--- OUTSIDE RECORDS SUMMARY | 2025-02-22 09:46 | XMS_ITS | Encounter Summary ---
Author Organization [employer] ([place], [place], [place], [place], [place]) Address [address] [place] [address] Care Team Providers Care Circle Beveler Name Role Phone Juan José Kendall MD Primary Care Provider +- [phone] Juan José Kendall MD Unavailable [phone] Encounter Details Date Type Department Care Team (Late st Contact Info) Description 01/31/2019 Transcribed Document [facility] [place] [address] [place] [address] ProviderLaurie MD [address] [place] [address] Social History Tobacco Use Types Packs/Day Years Used Date Smoking Tobacco: Never Assessed Comments Unknown Sex and Gender Information Value Date Recorded Sex Assigned at Not on file Legal Sex Female 2:23 PM CDT Gender Identity Not on file Sexual Orientation Not on file documented as of this encounter Miscellaneous Notes * Cerner Conversion Note - Laurie Garcia MD - 01/31/2019 8:00 AM CDT Pain Assessment [...] on filedocumented in this encounter Care Teams Circle Beveler Relationship Specialty Start Date End Date Juan José Kendall MD [address] [facility] [address] [place] [address] PCP - General Family Medicine 12/25/22 Juan José Kendall MD [address] [place] [address] [address] [place] [address] Referring Physician Family Medicine 12/25/22 documented as of this encounter
--- OUTSIDE RECORDS SUMMARY | 2025-02-22 09:46 | XMS_ITS | Encounter Summary ---
Author Organization [employer] ([place], [place], [place], [place], [place]) Address [address] [place] [address] Care Team Providers Care Front End Architect Name Role Phone Juan José Kendall MD Primary Care Provider + [phone] Juan José Kendall MD Unavailable [phone] Encounter Details Date Type Department Care Team (Late st Contact Info) Description 09/30/2018 Transcribed Document [facility] [place] [address] [place] [address] ProviderLaurie MD [address] [place] [address] Social History Tobacco Use Types Packs/Day Years [...] Performed On: 09/30/2018 21:00 EDT by Joanne Norton RN Patch Check Patch Check Result : Yes Patch Check - Type of Patch : Other: scopolamine patch Joanne Norton RN - 09/30/2018 22:14 EDT documented in this encounter Plan of Treatment Not on file documented as of this encounter Visit Diagnoses Not on filedocumented in this encounter Care Teams Front End Architect Relationship Specialty Start Date End Date Juan José Kendall MD [address] [place] [address] [place] [address] PCP - General Family Medicine 12/25/22 Juan José Kendall MD [address] [place] [address] [place] [address] Referring Physician Family Medicine 12/25/22 documented as of this encounter
--- OUTSIDE RECORDS SUMMARY | 2025-02-22 09:46 | XMS_ITS | Encounter Summary ---
Author Organization [employer] ([place], [place], [place], [place], [place]) Address [address] [place] [address] Care Team Providers Care Grade And Center Marker Name Role Phone Juan José Kendall MD Primary Care Provider + [phone] Juan José Kendall MD Unavailable [phone] Encounter Details Date Type Department Care Team (Late st Contact Info) Description 09/06/2018 Transcribed Document [facility] [place] [address] [place] [address] ProviderLaurie MD [address] [place] [address] Social History Tobacco Use Types Packs/Day Years [...] All Active Orders Reviewed : Yes Skyla Hearn, Rn - 09/06/2018 5:51 EDT documented in this encounter Plan of Treatment Not on file documented as of this encounter Visit Diagnoses Not on filedocumented in this encounter Care Teams Grade And Center Marker Relationship Specialty Start Date End Date Juan José Kendall MD [address] [place] [address] [place] [address] PCP - General Family Medicine 12/25/22 Juan José Kendall MD [address] [place] [address] [place] [address] Referring Physician Family Medicine 12/25/22 documented as of this encounter
--- OUTSIDE RECORDS SUMMARY | 2025-02-22 09:46 | XMS_ITS | Encounter Summary ---
Author Organization [employer] ([place], [place], [place], [place], [place]) Address [address] [place] [address] Care Team Providers Care Transaction Coordinator Name Role Phone Juan José Kendall MD Primary Care Provider +- [phone] Juan José Kendall MD Unavailable [phone] Encounter Details Date Type Department Care Team (Late st Contact Info) Description 09/16/2018 Transcribed Document [facility] [place] [address] [place] [address] ProviderLaurie MD [address] [place] [address] Social History Tobacco Use Types Packs/Day Years [...] Linh Honeycutt RN - 09/16/2018 3:47 EDT Electronically signed by Aleks [facility] Conversion Furnace Puncher Cerner at 07/24/2022 3:50 PM CDT documented in this encounter Plan of Treatment Not on file documented as of this encounter Visit Diagnoses Not on filedocumented in this encounter Care Teams Transaction Coordinator Relationship Specialty Start Date End Date Juan José Kendall MD [address] [facility] [address] [place] [address] PCP - General Family Medicine 12/25/22 Juan José Kendall MD [address] [facility] [address] [place] [address] Referring Physician Family Medicine 12/25/22 documented as of this encounter
[2025-02-22 09:47] LABS: Albumin Level 2.9 g/dl (3.5-5.0); Chloride 103 mmol/L (98-107); Potassium 4.4 mmoL/L (3.5-5.1); Sodium 135 mmol/L (136-145)
--- OUTSIDE RECORDS SUMMARY | 2025-02-22 09:47 | XMS_ITS | Encounter Summary ---
Author Organization [employer] ([place], [place], [place], [place], [place]) Address [address] [place] [address] Care Team Providers Care Surgical Oncologist Name Role Phone Juan José Kendall MD Primary Care Provider +- [phone] Juan José Kendall MD Unavailable [phone] Encounter Details Date Type Department Care Team (Late st Contact Info) Description 09/16/2018 Transcribed Document [facility] [place] [address] [place] [address] ProviderLaurie MD [address] [place] [address] Social History Tobacco Use Types Packs/Day Years Used Date Smoking Tobacco: Never Assessed Comments Unknown Sex and Gender Information Value Date Recorded Sex Assigned at Not on file Legal Sex Female 2:23 PM CDT Gender Identity Not on file Sexual Orientation Not on file documented as of this encounter Miscellaneous Notes * Cerner Conversion Note - Laurie ProviderMD - 09/16/2018 2:00 AM CDT Steam Shovel Operator Details Entered On: 09/16/2018 2:03 EDT [...] on filedocumented in this encounter Care Teams Surgical Oncologist Relationship Specialty Start Date End Date Juan José Kendall MD [address] [facility] [address] [place] [address] PCP - General Family Medicine 12/25/22 Juan José Kendall MD [address] [facility] [address] [place] [address] Referring Physician Family Medicine 12/25/22 documented as of this encounter
--- OUTSIDE RECORDS SUMMARY | 2025-02-22 09:48 | XMS_ITS | Encounter Summary ---
Author Organization [employer] ([place], [place], [place], [place], [place]) Address [address] [place] [address] Care Team Providers Care Patent Drafter Name Role Phone Juan José Kendall MD Primary Care Provider + [phone] Juan José Kendall MD Unavailable [phone] Encounter Details Date Type Department Care Team (Late st Contact Info) Description 09/30/2018 Transcribed Document [facility] [place] [address] [place] [address] ProviderLaurie MD [address] [place] [address] Social History Tobacco Use Types Packs/Day Years [...] on filedocumented in this encounter Care Teams Patent Drafter Relationship Specialty Start Date End Date Juan José Kendall MD [address] [place] [address] PCP - General Family Medicine 12/25/22 Juan José Kendall MD [address] [place] [address] Referring Physician Family Medicine 12/25/22 documented as of this encounter
--- OUTSIDE RECORDS SUMMARY | 2025-02-22 09:48 | XMS_ITS | Encounter Summary ---
Author Organization [employer] ([place], [place], [place], [place], [place]) Address [address] [place] [address] Care Team Providers Care Youth Coordinator Name Role Phone Juan José Kendall MD Primary Care Provider + [phone] Juan José Kendall MD Unavailable [phone] Encounter Details Date Type Department Care Team (Late st Contact Info) Description 09/07/2018 Transcribed Document [facility] [place] [facility] [place] [address] Laurie Garcia MD [address] [place] [address] Social History Tobacco Use Types Packs/Day Years [...] mL 700 mg 14 mL, IV Piggyback, [id number] docusate sodium 100 mg cap 100 mg [...] 19.2 % LOW Lymph # 1.22 K/uL [place] % 9.1 % [place] # 0.58 K/uL [place] % 7.2 % [...] 18.2 % LOW Lymph # 1.31 K/uL [place] % 10.3 % [place] # 0.74 K/uL E[place] % 8.8 % [...] filedocumented in this encounter Care Teams Youth Coordinator Relationship Specialty Start Date End Date Juan José Kendall MD [address] [facility] [address] [place] [address] PCP - General Family Medicine 12/25/22 Juan José Kendall MD [address] [place] [facility] [address] [place] [address] Referring Physician Family Medicine 12/25/22 documented as of this encounter
--- OUTSIDE RECORDS SUMMARY | 2025-02-22 09:48 | XMS_ITS | Encounter Summary ---
Author Organization [employer] ([place], [place], [place], [place], [place]) Address [address] [place] [address] Care Team Providers Care Port Patrol Officer Name Role Phone Juan José Kendall MD Primary Care Provider +- [phone] Juan José Kendall MD Unavailable [phone] Encounter Details Date Type Department Care Team (Late st Contact Info) Description 01/31/2019 Transcribed Document [facility] [place] Family Medicine [address] [place] [address] ProviderLaurie MD [address] [place] [address] Social History Tobacco Use Types Packs/Day Years Used Date Smoking Tobacco: Never Assessed Comments Unknown Sex and Gender Information Value Date Recorded Sex Assigned at Not on file Legal Sex Female 2:23 PM CDT Gender Identity Not on file Sexual Orientation Not on file documented as of this encounter Miscellaneous Notes * Cerner Conversion Note - Laurie Garcia MD - 01/31/2019 9:00 AM CDT Pain Assessment [...] on filedocumented in this encounter Care Teams Port Patrol Officer Relationship Specialty Start Date End Date Juan José Kendall MD 12[address] [facility] [address] [place] [id number] PCP - General Family Medicine 12/25/22 Juan José Kendall MD [address] [place] [address] [address] [place] [id number] Referring Physician Family Medicine 12/25/22 documented as of this encounter
--- OUTSIDE RECORDS SUMMARY | 2025-02-22 09:49 | XMS_ITS | Encounter Summary ---
Author Organization [employer] ([place], [place], [place], [place], [place]) Address [address] [place] [address] Care Team Providers Care Electrical Controls Assembler Name Role Phone Juan José Kendall MD Primary Care Provider +- [phone] Juan José Kendall MD Unavailable [phone] Encounter Details Date Type Department Care Team (Late st Contact Info) Description 02/01/2019 Transcribed Document [facility] [place] Medicine [address] [place] [address] ProviderLaurie MD [address] [place] [address] Social History Tobacco Use Types Packs/Day Years Used Date Smoking Tobacco: Never Assessed Comments Unknown Sex and Gender Information Value Date Recorded Sex Assigned at Not on file Legal Sex Female 2:23 PM CDT Gender Identity Not on file Sexual Orientation Not on file documented as of this encounter Miscellaneous Notes * Cerner Conversion Note - Laurie ProviderMD - 02/01/2019 2:00 AM CDT Strategic Account Director Details Entered On: 02/01/2019 0:08 EDT Performed [...] in this encounter Care Teams Electrical Controls Assembler Relationship Specialty Start Date End Date Juan José Kendall MD [address] [facility] [address] [place] [id number] PCP - General Family Medicine 12/25/22 Juan José Kendall MD [address] [facility] [address] [place] [phone] Referring Physician Family Medicine 12/25/22 documented as of this encounter
--- OUTSIDE RECORDS SUMMARY | 2025-02-22 09:49 | XMS_ITS | Encounter Summary ---
Author Organization [employer] ([place], [place], [place], [place], [place]) Address [address] [place] [address] Care Team Providers Care Painting Trades Worker Name Role Phone Juan José Kendall MD Primary Care Provider + [phone] Juan José Kendall MD Unavailable [phone] Encounter Details Date Type Department Care Team (Late st Contact Info) Description 09/30/2018 Transcribed Document [facility] [place] [address] [place] [address] ProviderLaurie MD [address] [place] [address] Social History Tobacco Use Types Packs/Day Years [...] Spiritual Care Spiritual Care Referred by : Head End Desizing Machine Operator initiated Ministry Provided to : Patient, Family/Significant other Intervention/Comment/Summary Points : Routine visit; Provided pastoral prayer Zoroastrianism Preference : JudaismMOHINDER Garzon - 09/30/2018 14:46 EDT documented in this encounter Plan of Treatment Not on file documented as of this encounter Visit Diagnoses Not on filedocumented in this encounter Care Teams Painting Trades Worker Relationship Specialty Start Date End Date Juan José Kendall MD 1210 [facility] [address] [place] [id number] PCP - General Family Medicine 12/25/22 Juan José Kendall MD [facility] [address] [place] [phone] Referring Physician Family Medicine 12/25/22 documented as of this encounter
--- OUTSIDE RECORDS SUMMARY | 2025-02-22 09:49 | XMS_ITS | Encounter Summary ---
Author Organization [employer] ([place], [place], [place], [place], [place]) Address [address] [place] [address] Care Team Providers Care Opto Mechanical Engineer Name Role Phone Juan José Kendall MD Primary Care Provider +- [phone] Juan José Kendall MD Unavailable [phone] Encounter Details Date Type Department Care Team (Late st Contact Info) Description 02/01/2019 Transcribed Document [facility] [place] Family Medicine [address] [place] [address] Laurie Garcia MD [address] [place] [address] Social History Tobacco Use Types Packs/Day Years Used Date Smoking Tobacco: Never Assessed Comments Unknown Sex and Gender Information Value Date Recorded Sex Assigned at Not on file Legal Sex Female 2:23 PM CDT Gender Identity Not on file Sexual Orientation Not on file documented as of this encounter Miscellaneous Notes * Cerner Conversion Note - Laurie Garcia MD - 02/01/2019 6:06 PM CDT Pain Assessment [...] EDT Pain Scale Intensity : 2 Lenora Hong, RN - 02/02/2019 0:55 EDT Image 4 - Images currently included in the form version of this document have not been included in the text rendition version of the form. documented in this encounter Plan of Treatment Not on file documented as of this encounter Visit Diagnoses Not on filedocumented in this encounter Care Teams Opto Mechanical Engineer Relationship Specialty Start Date End Date Juan José Kendall MD [address] [facility] [address] [place] [id number] PCP - General Family Medicine 12/25/22 Juan José Kendall MD [address] [facility] [address] [place] [phone] Referring Physician Family Medicine 12/25/22 documented as of this encounter
--- OUTSIDE RECORDS SUMMARY | 2025-02-22 09:49 | XMS_ITS | Encounter Summary ---
Author Organization [employer] ([place], [place], [place], [place], [place]) Address [address] [place] [address] Care Team Providers Care Bobbin Sorter Name Role Phone Juan José Kendall MD Primary Care Provider + [phone] Juan José Kendall MD Unavailable [phone] Encounter Details Date Type Department Care Team (Late st Contact Info) Description 09/30/2018 Transcribed Document [facility] [place] Family Medicine [address] [place] [address] ProviderLaurie MD [address] [place] [address] Social History Tobacco Use Types Packs/Day Years [...] on filedocumented in this encounter Care Teams Bobbin Sorter Relationship Specialty Start Date End Date Juan José Kendall MD [address] [place] [phone] PCP - General Family Medicine 12/25/22 Juan José Kendall MD [address] [place] [address] [place] [phone] Referring Physician Family Medicine 12/25/22 documented as of this encounter
--- OUTSIDE RECORDS SUMMARY | 2025-02-22 09:49 | XMS_ITS | Encounter Summary ---
Author Organization [employer] ([place], [place], [place], [place], [place]) Address [address] [place] [address] Care Team Providers Care Welder Gas Name Role Phone Juan José Kendall MD Primary Care Provider + [phone] Juan José Kendall MD Unavailable [phone] Encounter Details Date Type Department Care Team (Late st Contact Info) Description 09/17/2018 Transcribed Document [facility] Family Medicine [address] [place] [address] ProviderLaurie MD [address] [place] [address] Social History Tobacco Use Types Packs/Day Years [...] : Yes Kelly Deng, RN - 09/18/2018 0:57 EDT Electronically signed by Adia Fink Conversion Learning And Development Coordinator Cerner at 07/24/2022 3:35 PM CDT documented in this encounter Plan of Treatment Not on file documented as of this encounter Visit Diagnoses Not on filedocumented in this encounter Care Teams Welder Gas Relationship Specialty Start Date End Date Juan José Kendall MD [address] [place] [address] [place] [phone] PCP - General Family Medicine 12/25/22 Juan José Kendall MD [address] [place] [address] [place] [phone] Referring Physician Family Medicine 12/25/22 documented as of this encounter
--- OUTSIDE RECORDS SUMMARY | 2025-02-22 09:49 | XMS_ITS | Encounter Summary ---
Author Organization [employer] ([place], [place], [place], [place], [place]) Address [address] [place] [address] Care Team Providers Care Fire Control System Installer Name Role Phone Juan José Kendall MD Primary Care Provider + [phone] Juan José Kendall MD Unavailable [phone] Encounter Details Date Type Department Care Team (Late st Contact Info) Description 09/07/2018 Transcribed Document [facility] [place] Medicine [address] [place] [address] ProviderLaurie MD [address] [place] [address] Social History Tobacco Use Types Packs/Day Years [...] Plan: ANTHEM HMOPPO Policy Number: Authorization Number: [id number] Insurance 2 Health Plan: MEDICARE Policy Number: [id number] Authorization Number: Insurance Primary Name : Luz [id number] Authorization Status-Primary : Admit approved Reference Number-Primary : [id number] Authorization Number-Primary : [id number] Number of Days Authorized-Primary : 12 Authorized Service Begin Date-Primary : 08/30/2018 EDT Authorized Service End Date-Primary : 09/11/2018 EDT Authorization Comments-Primary : approved per fax back cont stay 7 days nrd 09/12 Historical Authorization Comments-Primary : Comment 1: Call to Luz CHEUNG to obtain fax # for cont stay--clinicals faxed for cont stay via cerner to [phone]. (09/05-09/06/18) (KAZ DIAZ, RN-Utilization Review 09/06/2018 12:23) Comment 2: Per Availity site (referred to different section than normal), inpt admission approved. Auth noted. Will need d/c date called. (Inder Cowan, Surendrat Tax Adjuster-Utilization Mgt 08/31/2018 12:52) KELSIE VERDUGO, LISBETH-Utilization Review - 09/07/2018 10:12 EDT Electronically signed by [facility] Conversion Shaper Hand Cerner at 07/24/2022 3:40 PM CDT documented in this encounter Plan of Treatment Not on file documented as of this encounter Visit Diagnoses Not on filedocumented in this encounter Care Teams Fire Control System Installer Relationship Specialty Start Date End Date Juan Jsoé Kendall MD 1210 [facility] [address] [place] [phone] PCP - General Family Medicine 12/25/22 Juan José Kendall MD 1210 [facility] [address] [place] [phone] Referring Physician Family Medicine 12/25/22 documented as of this encounter
--- OUTSIDE RECORDS SUMMARY | 2025-02-22 09:49 | XMS_ITS | Encounter Summary ---
Author Organization [employer] ([place], [place], [place], [place], [place]) Address [address] [place] [address] Care Team Providers Care Microarray Analyst Name Role Phone Juan José Kendall MD Primary Care Provider +- [phone] Juan José Kendall MD Unavailable [phone] Encounter Details Date Type Department Care Team (Late st Contact Info) Description 09/17/2018 Transcribed Document [facility] Family Medicine [address] [place] [address] ProviderLaurie MD [address] [place] [address] Social History Tobacco Use Types Packs/Day Years [...] 15 16:02) 98.7 (EDGARD 15 16:02) 99.1 (SEP 14 19:00) Apical HR 78 (EDGARD 15 16:02) 70 (SEP 15 09:47) 78 (EDGARD 15 16:02) Mon HR 78 (EDGARD 15 16:02) 77 (EDGARD 15 07:00) 84 (EDGARD 14 23:00) Resp Rate 18 (DEGARD 15 16:02) 15 (EDGARD 15 07:00) 18 [...] on vancomycin. SCr remains 1.4-1.6 since at [facility]. 3. Abx planned until 10/05 per ID. 4. Pharmacy will continue to follow. Thank you for your consult. Iliana Jovel, PharmD PGY1 Tag Meter Operator [phone] Electronically signed by [facility], [facility] Conversion Dispatcher Radioactive Waste Disposal Cerner at 07/24/2022 3:41 PM CDT documented in this encounter Plan of Treatment Not on file documented as of this encounter Visit Diagnoses Not on filedocumented in this encounter Care Teams Microarray Analyst Relationship Specialty Start Date End Date Juan José Kendall MD 1210 [facility] [address] [place] [phone] PCP - General Family Medicine 12/25/22 Juan José Kendall MD [facility] [facility] [address] [place] [phone] Referring Physician Family Medicine 12/25/22 documented as of this encounter
[2025-02-22 09:50] LABS: Alanine Aminotransferase 18 U/L (12-78); Albumin/Globulin Ratio 1.1 (1.1-1.8); Alkaline Phosphatase 159 U/L (38-126); Anion Gap 10.4 mEq/L (5-15); Aspartate Amino Transferase 60 U/L (14-36); Bilirubin,Total 0.4 mg/dl (0.2-1.3); Blood Urea Nitrogen 12 mg/dl (7-17); Carbon Dioxide 26 mmol/L (22.0-30.0); Cholesterol 66 mg/dl (140-200); Creatinine,Serum 0.80 mg/dl (0.52-1.04); Estimated Glomerular Filt Rate 71 ml/min (>60); GFR (African American) 86 ML/MIN (>60); Globulin 2.7 g/dL (1.3-3.2); Glucose 84 mg/dl (74-100); Total Protein,Serum 5.6 g/dl (6.3-8.2); Triglycerides 34 mg/dl (30-150)
--- OUTSIDE RECORDS SUMMARY | 2025-02-22 09:50 | XMS_ITS | Encounter Summary ---
Author Organization [employer] ([place], [place], [place], [place], [place]) Address [address] [place] [address] Care Team Providers Care Health Manager Name Role Phone Juan José Kendall MD Primary Care Provider +- [phone] Juan José Kendall MD Unavailable [phone] Encounter Details Date Type Department Care Team (Late st Contact Info) Description 09/16/2018 Transcribed Document [facility] [place] Family Medicine [address] [place] [address] ProviderLaurie MD [address] [place] [address] Social History Tobacco Use Types Packs/Day Years Used Date Smoking Tobacco: Never Assessed Comments Unknown Sex and Gender Information Value Date Recorded Sex Assigned at Not on file Legal Sex Female 2:23 PM CDT Gender Identity Not on file Sexual Orientation Not on file documented as of this encounter Miscellaneous Notes * Cerner Conversion Note - Laurie ProviderMD - 09/16/2018 9:00 AM CDT Pain [...] EDT Pain Scale Intensity : 1 ENOCH PERDOMOLAUREL - 09/16/2018 11:38 EDT Image 4 - Images currently included in the form version of this document have not been included in the text rendition version of the form. documented in this encounter Plan of Treatment Not on file documented as of this encounter Visit Diagnoses Not on filedocumented in this encounter Care Teams Health Manager Relationship Specialty Start Date End Date Juan José Kendall MD 1210 [facility] [address] [place] [phone] PCP - General Family Medicine 12/25/22 Juan José Kendall MD [facility] [facility] [address] [place] [phone] Referring Physician Family Medicine 12/25/22 documented as of this encounter
--- OUTSIDE RECORDS SUMMARY | 2025-02-22 09:50 | XMS_ITS | Encounter Summary ---
Author Organization [employer] ([place], [place], [place], [place], [place]) Address [address] [place] [address] Care Team Providers Care Toe Puncher Name Role Phone Juan José Kendall MD Primary Care Provider +- [phone] Juan José Kendall MD Unavailable [phone] Encounter Details Date Type Department Care Team (Late st Contact Info) Description 09/07/2018 Transcribed Document [facility] [place] [facility] [place] [address] ProviderLaurie MD [address] [place] [address] Social History Tobacco Use Types Packs/Day Years Used Date Smoking Tobacco: Never Assessed Comments Unknown Sex and Gender Information Value Date Recorded Sex Assigned at Not on file Legal Sex Female 2:23 PM CDT Gender Identity Not on file Sexual Orientation Not on file documented as of this encounter Miscellaneous Notes * Cerner Conversion Note - Laurie Garcia MD - 09/07/2018 10:46 AM CDT Patient: TRUDI [...] repair. She was more recently admitted to [facility] x2 earlier this month on 08/16 and [...] getting wound care. She was [facility] today for a higher level [...] 50 mL - 700 mg, IV Piggyback, [id number], infuse over 30 Minute(s) Anticoagulant heparin - [...] 05) L 7.7 (SEP 04) L 7.8 (EDGARD [...] 05) 27 (EDGARD 04) 23 (EDGARD 03) 23 (SEP 02) BUN H 29 (EDGARD 05) H 24 (EDGARD 04) H 26 (EDGARD 03) H 28 (SEP 02) Cr H 1.76 (EDGARD 05) H 1.79 (EDGARD 04) H 1.87 (EDGARD 03) H 1.90 (SEP 02) Glu R 86 (SEP 05) 86 (EDGARD 04) 91 (EDGARD 03) 94 (SEP 02) Ca L 8.2 (EDGARD 05) L 7.9 (EDGARD 04) L 7.7 (EDGARD 03) L 7.6 (SEP 02) Lactic 1.5 (AUGUST 30) PT 10.8 (AUGUST 30) INR 1.0 (AUGUST 30) PTT H 40.2 (AUGUST 30) AST 10 (EDGARD 05) 12 (EDGARD 04) 9 (EDGARD 03) 13 (SEP 02) ALT L 9 (EDGARD 05) L 11 (EDGARD 04) L 10 (EDGARD 03) L 9 (SEP 02) ALK P 60 (EDGARD 05) 62 (EDGARD 04) 60 (EDGARD 03) 57 (EDGARD 02) T Bili 0.5 (EDGARD 05) 0.4 (EDGARD 04) 0.5 (EDGARD 03) 0.4 (EDGARD 02) PTN L 5.0 (EDGARD 05) L 4.5 (EDGARD 04) L 4.6 (EDGARD 03) L 4.2 (EDGARD 02) ALB L 3.0 (EDGARD 05) L 2.3 (EDGARD 04) L 2.3 (EDGARD 03) L 2.0 (EDGARD 02) Creatinine Clearance (Current Encounter/Past 24 Hours) Creatinine Level 1.76 mg/dL AK 09/07/2018 05:24 Bun/Creatinine 16.5 09/07/2018 05:24 Estimated [...] with case management and placement at [facility] may not work out due to Daptomycin. Will look for placement at [facility] and other rehab facilities. complex set of medical issues requiring a high level of medical decision making. Patient has risk for further morbidity including loss of her limb. documented in this encounter Plan of Treatment Not on file documented as of this encounter Visit Diagnoses Not on filedocumented in this encounter Care Teams Toe Puncher Relationship Specialty Start Date End Date Juan José Kendall MD 1210 [facility] [address] [place] [phone] PCP - General Family Medicine 12/25/22 Juan José Kendall MD 1210 [facility] [address] [place] [phone] Referring Physician Family Medicine 12/25/22 documented as of this encounter
--- OUTSIDE RECORDS SUMMARY | 2025-02-22 09:50 | XMS_ITS | Encounter Summary ---
Author Organization [employer] ([place], [place], [place], [place], [place]) Address [address] [place] [address] Care Team Providers Care Rouge Miller Name Role Phone Juan José Kendall MD Primary Care Provider +- [phone] Juan José Kendall MD Unavailable [phone] Encounter Details Date Type Department Care Team (Late st Contact Info) Description 02/01/2019 Transcribed Document [facility] [place] [address] [place] [address] ProviderLaurie MD [address] [place] [address] Social History Tobacco Use Types Packs/Day Years Used Date Smoking Tobacco: Never Assessed Comments Unknown Sex and Gender Information Value Date Recorded Sex Assigned at Not on file Legal Sex Female 2:23 PM CDT Gender Identity Not on file Sexual Orientation Not on file documented as of this encounter Miscellaneous Notes * Cerner Conversion Note - Laurie Garcia MD - 02/01/2019 8:00 AM CDT Pain Assessment [...] on filedocumented in this encounter Care Teams Rouge Miller Relationship Specialty Start [place] [address] [place] [address] [address] [place] [phone] PCP - General Family Medicine 12/25/22 Juan José Kendall MD [address] [place] [address] [address] [place] [phone] Referring Physician Family Medicine 12/25/22 documented as of this encounter
--- OUTSIDE RECORDS SUMMARY | 2025-02-22 09:50 | XMS_ITS | Encounter Summary ---
Author Organization [employer] ([place], [place], [place], [place], [place]) Address [address] [place] [address] Care Team Providers Care High Density Press Operator Name Role Phone Juan José Kendall MD Primary Care Provider +- [phone] Juan José Kendall MD Unavailable [phone] Encounter Details Date Type Department Care Team (Late st Contact Info) Description 09/17/2018 Transcribed Document [facility] [place] Family Medicine [address] [place] [address] ProviderLaurie MD [address] [place] [address] Social History Tobacco Use Types Packs/Day Years [...] filedocumented in this encounter Care Teams High Density Press Operator Relationship Specialty Start Date End Date Juan José Kendall MD [facility]10 [facility] [address] [place] [phone] PCP - General Family Medicine 12/25/22 Juan José Kendall MD 1210 [facility] [address] [place] [phone] Referring Physician Family Medicine 12/25/22 documented as of this encounter
--- OUTSIDE RECORDS SUMMARY | 2025-02-22 09:50 | XMS_ITS | Encounter Summary ---
Author Organization [employer] ([place], [place], [place], [place], [place]) Address [address] [place] [address] Care Team Providers Care Lathe Turner Name Role Phone Juan José Kendall MD Primary Care Provider + [phone] Juan José Kendall MD Unavailable [phone] Encounter Details Date Type Department Care Team (Late st Contact Info) Description 09/30/2018 Transcribed Document [facility] [place] Family Medicine [facility] [address] ProviderLaurie MD [address] [place] [address] Social History Tobacco Use Types Packs/Day Years [...] wound care. She was transferred to [facility] [place] today for a [...] HTN Cancer Social History: . lives in [place]. No tobacco, ETOH, or illicit drug use. [...] values) WBC 6.2 (SEP 29) 5.8 (SEP 26) 5.7 (SEP 17) 7.0 (SEP 14) HB L 8.7 (EDGARD 27) L [...] filedocumented in this encounter Care Teams Lathe Turner Relationship Specialty Start Date End Date Juan José Kendall MD 1210 [facility] [address] [place] [phone] PCP - General Family Medicine 12/25/22 Juan José Kendall MD [facility] [place] [facility] [address] [place] [phone] Referring Physician Family Medicine 12/25/22 documented as of this encounter
--- OUTSIDE RECORDS SUMMARY | 2025-02-22 09:50 | XMS_ITS | Encounter Summary ---
Author Organization [employer] ([place], [place], [place], [place], [place]) Address [address] [place] [address] Care Team Providers Care Shoe Clerk Name Role Phone Juan José Kendall MD Primary Care Provider + [phone] Juan José Kendall MD Unavailable [phone] Encounter Details Date Type Department Care Team (Late st Contact Info) Description 09/07/2018 Transcribed Document [facility] Family Medicine [address] [place] [address] ProviderLaurie MD [address] [place] [address] Social History Tobacco Use Types Packs/Day Years [...] filedocumented in this encounter Care Teams Shoe Clerk Relationship Specialty Start Date End Date Juan José Kendall MD [address] [place] [phone] PCP - General Family Medicine 12/25/22 Juan José Kendall MD [address] [place] [phone] Referring Physician Family Medicine 12/25/22 documented as of this encounter
[2025-02-22 09:51] LABS: Calcium 8.2 mg/dl (8.4-10.2); HDL Cholesterol 39 mg/dl (40-60)
--- OUTSIDE RECORDS SUMMARY | 2025-02-22 09:51 | XMS_ITS | Encounter Summary ---
Author Organization [employer] ([place], [place], [place], [place], [place]) Address [address] [place] [address] Care Team Providers Care Weaver Axminster Name Role Phone Juan José Kendall MD Primary Care Provider + [phone] Juan José Kendall MD Unavailable [phone] Encounter Details Date Type Department Care Team (Late st Contact Info) Description 09/07/2018 Transcribed Document [facility] [place] Family Medicine [facility] [place] [address] ProviderLaurie MD [address] [place] [address] Social History Tobacco Use Types Packs/Day Years [...] 09/07/2018 10:42 EDT by JAYE MAYFIELD Care Management-Toy Electric Train Repairer Care Management Progress Note Discharge Arrangements [...] Initiated : 09/06/2018 EDT JAYE MAYFIELD, Care Management-Toy Electric Train Repairer - 09/07/2018 10:42 EDT Electronically signed by [facility] Conversion Pipe And Tank Fabricator Cerner at 07/24/2022 3:57 PM CDT documented in this encounter Plan of Treatment Not on file documented as of this encounter Visit Diagnoses Not on filedocumented in this encounter Care Teams Weaver Axminster Relationship Specialty Start Date End Date Juan José Kendall MD 1210 [facility] [address] [place] [phone] PCP - General Family Medicine 12/25/22 Juan José Kendall MD 1210 [facility] [address] [place] [phone] Referring Physician Family Medicine 12/25/22 documented as of this encounter
--- OUTSIDE RECORDS SUMMARY | 2025-02-22 09:51 | XMS_ITS | Encounter Summary ---
Author Organization [employer] ([place], [place], [place], [place], [place]) Address [address] [place] [address] Care Team Providers Care Mold Release Worker Name Role Phone Juan José Kendall MD Primary Care Provider +- [phone] Juan José Kendall MD Unavailable [phone] Encounter Details Date Type Department Care Team (Late st Contact Info) Description 09/07/2018 Transcribed Document [facility] [place] Family Medicine [facility] [place] [address] ProviderLaurie MD [address] [place] [address] Social History Tobacco Use Types Packs/Day Years Used Date Smoking Tobacco: Never Assessed Comments Unknown Sex and Gender Information Value Date Recorded Sex Assigned at Not on file Legal Sex Female 2:23 PM CDT Gender Identity Not on file Sexual Orientation Not on file documented as of this encounter Miscellaneous Notes * Cerner Conversion Note - Laurie ProviderMD - 09/07/2018 11:50 AM CDT Treatment Intervention, PT Entered On: 09/07/2018 14:09 EDT Performed On: 09/07/2018 11:50 EDT by VINNIE LUI LEASING AGENT General Information, PT Visit Type, PT : Treatment Note Patient Orders : Order Date Order Ordering 08/31/2018 18:29 PT Evaluation and Treatment Ordered By: JONG ASNTACRUZ MD-ORT 09/01/2018 11:48 PT Additional Treatment Ordered [...] Established w Patient : Yes VINNIE LUI, LEASING AGENT - 09/07/2018 14:12 EDT Merchandising Manager Goals Other PT LTG Grid Goal #1 Goal #2 Other : Pt will perform supine to sit with mod x 2 for progression in functional activity tolerance. Pt will perform RLE ther-ex 2 x 10 reps AAROM for improvement in strength/ROM. Date to Meet : 09/09/2018 EDT 09/09/2018 EDT Goal Status : Progressing, continue Progressing, continue VINNIE LUI, LEASING AGENT - 09/07/2018 14:12 EDT VINNIE LUI, LEASING AGENT - 09/07/2018 14:12 EDT Treatment Note Subjective [...] for Treatment : Cont POC. VINNIE LUI, LEASING AGENT - 09/07/2018 14:12 EDT Pain Assessment Pain Scaled Used : FACES Pain Score Pre-Intervention : 4 VINNIE LUI, LEASING AGENT - 09/07/2018 14:12 EDT Image 1 - Images currently included in the form version of this document have not been included in the text rendition version of the form. [facility] PT Charges PT Therap. Exercise 15 min : 1 VINNIE LUIJACOB - 09/07/2018 14:12 EDT documented in this encounter Plan of Treatment Not on file documented as of this encounter Visit Diagnoses Not on filedocumented in this encounter Care Teams Mold Release Worker Relationship Specialty Start Date End Date Juan José Kendall MD [address] [facility] [address] [place] [id number] PCP - General Family Medicine 12/25/22 Juan José Kendall MD [address] [place] [facility] [address] [place] [id number] Referring Physician Family Medicine 12/25/22 documented as of this encounter
--- OUTSIDE RECORDS SUMMARY | 2025-02-22 09:51 | XMS_ITS | Encounter Summary ---
Author Organization [employer] ([place], [place], [place], [place], [place]) Address [address] [place] [address] Care Team Providers Care Warehouse Shift Supervisor Name Role Phone Juan José Kendall MD Primary Care Provider + [phone] Juan José Kendall MD Unavailable [phone] Encounter Details Date Type Department Care Team (Late st Contact Info) Description 09/07/2018 Transcribed Document [facility] Family Medicine [address] [place] [address] ProviderLaurie MD [address] [place] [address] Social History Tobacco Use Types Packs/Day Years [...] filedocumented in this encounter Care Teams Warehouse Shift Supervisor Relationship Specialty Start Date End Date Juan José Kendall MD [address] [place] [facility] [address] [place] [address] PCP - General Family Medicine 12/25/22 Juan José Kendall MD [address] [place] [phone] Referring Physician Family Medicine 12/25/22 documented as of this encounter
--- OUTSIDE RECORDS SUMMARY | 2025-02-22 09:51 | XMS_ITS | Encounter Summary ---
Author Organization [employer] ([place], [place], [place], [place], [place]) Address [address] [place] [address] Care Team Providers Care Backfiller Name Role Phone Juan José Kendall MD Primary Care Provider +- [phone] Juan José Kendall MD Unavailable [phone] Encounter Details Date Type Department Care Team (Late st Contact Info) Description 09/17/2018 Transcribed Document [facility] [place] Family Medicine [address] [place] [address] ProviderLaurie MD [address] [place] [address] Social History Tobacco Use Types Packs/Day Years Used Date Smoking Tobacco: Never Assessed Comments Unknown Sex and Gender Information Value Date Recorded Sex Assigned at Not on file Legal Sex Female 2:23 PM CDT Gender Identity Not on file Sexual Orientation Not on file documented as of this encounter Miscellaneous Notes * Cerner Conversion Note - Laurie Garcia MD - 09/17/2018 9:00 PM CDT Pain Assessment [...] 09/18/2018 0:58 EDT Electronically signed by Aleks [facility] Conversion Funds Transfer Clerk Cerner at 07/24/2022 3:45 PM CDT documented in this encounter Plan of Treatment Not on file documented as of this encounter Visit Diagnoses Not on filedocumented in this encounter Care Teams Backfiller Relationship Specialty Start Date End Date Juan José Kendall MD [address] [facility] [address] [place] [phone] PCP - General Family Medicine 12/25/22 Juan José Kendall MD [address] [facility] [address] [place] [phone] Referring Physician Family Medicine 12/25/22 documented as of this encounter
--- OUTSIDE RECORDS SUMMARY | 2025-02-22 09:51 | XMS_ITS | Encounter Summary ---
Author Organization [employer] ([place], [place], [place], [place], [place]) Address [address] [place] [address] Care Team Providers Care Beer Brewer Name Role Phone Juan José Kendall MD Primary Care Provider +- [phone] Juan José Kendall MD Unavailable [phone] Encounter Details Date Type Department Care Team (Late st Contact Info) Description 09/30/2018 Transcribed Document [facility] [place] Family Medicine [address] [place] [address] ProviderLaurie MD [address] [place] [address] Social History Tobacco Use Types Packs/Day Years [...] on filedocumented in this encounter Care Teams Beer Brewer Relationship Specialty Start Date End Date Juan José Kendall MD 12[address] [facility] [address] [place] [address] PCP - General Family Medicine 12/25/22 Juan José Kendall MD [address] [facility] [address] [place] [phone] Referring Physician Family Medicine 12/25/22 documented as of this encounter
--- OUTSIDE RECORDS SUMMARY | 2025-02-22 09:51 | XMS_ITS | Encounter Summary ---
Author Organization [employer] ([place], [place], [place], [place], [place]) Address [address] [place] [address] Care Team Providers Care Textile Science Technician Name Role Phone Juan José Kendall MD Primary Care Provider +- [phone] Juan José Kendall MD Unavailable [phone] Encounter Details Date Type Department Care Team (Late st Contact Info) Description 02/01/2019 Transcribed Document [facility] [place] Family Medicine [address] [place] [address] ProviderLaurie MD [address] [place] [address] Social History Tobacco Use Types Packs/Day Years Used Date Smoking Tobacco: Never Assessed Comments Unknown Sex and Gender Information Value Date Recorded Sex Assigned at Not on file Legal Sex Female 2:23 PM CDT Gender Identity Not on file Sexual Orientation Not on file documented as of this encounter Miscellaneous Notes * Cerner Conversion Note - Laurie Garcia MD - 02/01/2019 8:00 PM CDT Pain Assessment [...] on filedocumented in this encounter Care Teams Textile Science Technician Relationship Specialty Start Date End Date Juan José Kendall MD 1210 [facility] [address] [place] [address] PCP - General Family Medicine 12/25/22 [place] [address] [place] [address] [address] [place] [address] Referring Physician Family Medicine 12/25/22 documented as of this encounter
--- OUTSIDE RECORDS SUMMARY | 2025-02-22 09:51 | XMS_ITS | Encounter Summary ---
Author Organization [employer] ([place], [place], [place], [place], [place]) Address [address] [place] [address] Care Team Providers Care Inspector Technician Name Role Phone Juan José Kendall MD Primary Care Provider +- [phone] Juan José Kendall MD Unavailable [phone] Encounter Details Date Type Department Care Team (Late st Contact Info) Description 09/30/2018 Transcribed Document [facility] [place] [address] [place] [address] ProviderLaurie MD [address] [place] [address] Social History Tobacco Use Types Packs/Day Years Used Date Smoking Tobacco: Never Assessed Comments Unknown Sex and Gender Information Value Date Recorded Sex Assigned at Not on file Legal Sex Female 2:23 PM CDT Gender Identity Not on file Sexual Orientation Not on file documented as of this encounter Miscellaneous Notes * Cerner Conversion Note - Laurie ProviderMD - 09/30/2018 2:00 AM CDT Complaint Investigator Details Entered On: 09/30/2018 1:37 EDT Performed [...] FRANCISCO MOREJON RN - 09/30/2018 1:36 EDT Electronically signed by Aleks [facility] Conversion Wheelage Clerk Cerner at 07/24/2022 3:59 PM CDT documented in this encounter Plan of Treatment Not on file documented as of this encounter Visit Diagnoses Not on filedocumented in this encounter Care Teams Inspector Technician Relationship Specialty Start Date End Date Juan José Kendall MD [address] [facility] [address] [place] [phone] PCP - General Family Medicine 12/25/22 Juan José Kendall MD 12[address] [facility] [address] [place] [phone] Referring Physician Family Medicine 12/25/22 documented as of this encounter
--- OUTSIDE RECORDS SUMMARY | 2025-02-22 09:52 | XMS_ITS | Encounter Summary ---
Author Organization [employer] ([place], [place], [place], [place], [place]) Address [address] [place] [address] Care Team Providers Care Outreach Professional Name Role Phone Juan José Kendall MD Primary Care Provider +- [phone] Juan José Kendall MD Unavailable [phone] Encounter Details Date Type Department Care Team (Late st Contact Info) Description 09/17/2018 Transcribed Document [facility] [address] [place] [address] ProviderLaurie MD [address] [place] [address] Social History Tobacco Use Types Packs/Day Years Used Date Smoking Tobacco: Never Assessed Comments Unknown Sex and Gender Information Value Date Recorded Sex Assigned at Not on file Legal Sex Female 2:23 PM CDT Gender Identity Not on file Sexual Orientation Not on file documented as of this encounter Miscellaneous Notes * Cerner Conversion Note - Laurie ProviderMD - 09/17/2018 2:00 AM CDT Supervisor Brake Repair Details Entered On: 09/17/2018 1:40 EDT Performed [...] Line : No Kelly Deng RN - 09/17/2018 1:40 EDT Electronically signed by Aleks [facility] Conversion Hospital Attendant Cerner at 07/24/2022 3:46 PM CDT documented in this encounter Plan of Treatment Not on file documented as of this encounter Visit Diagnoses Not on filedocumented in this encounter Care Teams Outreach Professional Relationship Specialty Start Date End Date Juan José Kendall MD [address] [place] [facility] [address] [place] [phone] PCP - General Family Medicine 12/25/22 Juan José Kendall MD 1210 [facility] [address] [place] [phone] Referring Physician Family Medicine 12/25/22 documented as of this encounter
--- OUTSIDE RECORDS SUMMARY | 2025-02-22 09:52 | XMS_ITS | Encounter Summary ---
Author Organization [employer] ([place], [place], [place], [place], [place]) Address [address] [place] [address] Care Team Providers Care Cut Off Man Name Role Phone Juan José Kendall MD Primary Care Provider +- [phone] Juan José Kendall MD Unavailable [phone] Encounter Details Date Type Department Care Team (Late st Contact Info) Description 10/03/2018 Transcribed Document [facility] [place] [facility] [place] [address] ProviderLaurie MD [address] [place] [address] Social History Tobacco Use Types Packs/Day Years [...] getting wound care. She was transferred [place] [facility] today for a higher level of care. [...] the antibiotics without any adverse side effects. Ihlen removed yesterday at her incision site remains [...] Guerrero would like her to see an computer network support specialist at after her discharge from [...] HTN Cancer Social History: . lives in [place]. No tobacco, ETOH, or illicit drug use. [...] 81 (OCT 03 07:45) MAP 99 (OCT 03 07:45) 96 (OCT 02 15:00) 99 (OCT 03 07:45) SpO2 99 (OCT 03 07:45) 98 (OCT [...] (OCT 03) 112 (SEP 30) H 113 (SEP 29) H 113 (EDGARD 28) CO2 27 (OCT 03) 26 (SEP 30) 26 (SEP 29) 27 (SEP 28) BUN 14 (OCT 03) 16 (SEP 30) [...] Inder Tavares today. Electronically signed by Aleks, [facility] Conversion Lead Systems Analyst Cerner at 07/24/2022 3:54 PM CDT documented in this encounter Plan of Treatment Not on file documented as of this encounter Visit Diagnoses Not on filedocumented in this encounter Care Teams Cut Off Man Relationship Specialty Start Date End Date Juan José Kendall MD 1210 [facility] [address] [place] [phone] PCP - General Family Medicine 12/25/22 Juan José Kendall MD [address] [place] [facility] [address] [place] [phone] Referring Physician Family Medicine 12/25/22 documented as of this encounter
--- OUTSIDE RECORDS SUMMARY | 2025-02-22 09:52 | XMS_ITS | Encounter Summary ---
Author Organization [employer] ([place], [place], [place], [place], [place]) Address [address] [place] [address] Care Team Providers Care Mold Finisher Name Role Phone Juan José Kendall MD Primary Care Provider +- [phone] Juan José Kendall MD Unavailable [phone] Encounter Details Date Type Department Care Team (Late st Contact Info) Description 08/30/2018 Transcribed Document [facility] [place] Family Medicine [address] [place] [address] ProviderLaurie MD [address] [place] [address] Social History Tobacco Use Types Packs/Day Years Used Date Smoking Tobacco: Never Assessed Comments Unknown Sex and Gender Information Value Date Recorded Sex Assigned at Not on file Legal Sex Female 2:23 PM CDT Gender Identity Not on file Sexual Orientation Not on file documented as of this encounter Miscellaneous Notes * Cerner Conversion Note - Laurie Garcia MD - 08/30/2018 5:29 PM CDT Patient: TRUDI BLAIR Age: 63 years Sex: Female : 1955 Associated Diagnoses: None Author: Hoa Enriquez, Pharmacist Consult: Pharmacy to dose vancomycin Consulting physician: Dr Charles Porter Indication: Infected prosthetic knee Vancomycin Goal: 15-20 mcg/mL Pharmacokinetic Parameters INITIAL: Age= 63 yo , Ht= 167.64 cm, RTP=802.73 kg, IBW = 59.3 kg, DBW = 122.73 kg, BMI = 43.7 kg/m2, Clcr est= 21.9 ml/min, kest= 0.023 h-1, t/2est= 30.14 h, Vdest= 73.6 L ( L/kg), CL= 21.9 L/H Labs: AUGUST 30 15:54 145 H 113 H 36 / 100 3.8 24 H 2.43 \ Current antibiotics/anti-infectives: ceftriaxone 2g IV Q24h A/P: 1. Give Vancomycin 1500mg IV [id number] starting 09/01/18 at 04:00 (36 hours after loading dose of 2500mg hung) 2. Pharmacy will continue to monitor, order labs and make adjustments as apporpriate. Thank you kindly for this consult, Hoa Enriquez, Pharm.D. Electronically signed by Aleks [facility] Conversion Pin Drafting Machine Operator Cerner at 07/24/2022 3:37 PM CDT documented in this encounter Plan of Treatment Not on file documented as of this encounter Visit Diagnoses Not on filedocumented in this encounter Care Teams Mold Finisher Relationship Specialty Start Date End Date Juan José Kendall MD [address] [facility] [facility] [address] [place] [phone] PCP - General Family Medicine 12/25/22 Juan José Kendall MD [address] [place] [facility] [address] [place] [phone] Referring Physician Family Medicine 12/25/22 documented as of this encounter
--- OUTSIDE RECORDS SUMMARY | 2025-02-22 09:53 | XMS_ITS | Encounter Summary ---
Author Organization [employer] ([place], [place], [place], [place], [place]) Address [address] [place] [address] Care Team Providers Care Chemical Supervisor Name Role Phone Juan José Kendall MD Primary Care Provider + [phone] Juan José Kendall MD Unavailable [phone] Encounter Details Date Type Department Care Team (Late st Contact Info) Description 09/09/2018 Transcribed Document [facility] [place] [place] Family Medicine [address] [place] [address] ProviderLaurie MD [address] [place] [address] Social History Tobacco Use Types Packs/Day Years Used Date Smoking Tobacco: Never Assessed Comments Unknown Sex and Gender Information Value Date Recorded Sex Assigned at Not on file Legal Sex Female 2:23 PM CDT Gender Identity Not on file Sexual Orientation Not on file documented as of this encounter Miscellaneous Notes * Cerner Conversion Note - Historical ProviderMD - 09/09/2018 5:00 AM CDT Chart [...] filedocumented in this encounter Care Teams Chemical Supervisor Relationship Specialty Start Date End Date Juan José Kendall MD [address] [place] [phone] PCP - General Family Medicine 12/25/22 Juan José Kendall MD [address] [place] [address] [place] [phone] Referring Physician Family Medicine 12/25/22 documented as of this encounter
--- OUTSIDE RECORDS SUMMARY | 2025-02-22 09:53 | XMS_ITS | Encounter Summary ---
Author Organization [employer] ([place], [place], [place], [place], [place]) Address [address] [place] [address] Care Team Providers Care Teletype Telegrapher Name Role Phone Juan José Kendall MD Primary Care Provider +- [phone] Juan José Kendall MD Unavailable [phone] Encounter Details Date Type Department Care Team (Late st Contact Info) Description 09/21/2018 Transcribed Document [facility] [place] [address] [place] [address] ProviderLaurie MD [address] [place] [address] Social History Tobacco Use Types Packs/Day Years Used Date Smoking Tobacco: Never Assessed Comments Unknown Sex and Gender Information Value Date Recorded Sex Assigned at Not on file Legal Sex Female 2:23 PM CDT Gender Identity Not on file Sexual Orientation Not on file documented as of this encounter Miscellaneous Notes * Byron Conversion Note - Laurie ProviderMD - 09/21/2018 8:52 AM CDT Interdisciplinary Rounds Entered On: 09/21/2018 8:53 EDT Performed On: 09/21/2018 8:52 EDT by Jennifer Mai Dietitian Interdisciplinary Rounds Interdisciplinary Rounds Participants : Nery Tabor Square Cutter - 09/21/2018 13:08 EDT Notes to Care Team : Regular diet + Ensure BID, Simón BID 25% avg x 3 meals 100% x 4 supps LBM 09/20 Jennifer Mai Dietitian - 09/21/2018 8:52 EDT Electronically signed by Aleks [facility] Conversion Hand Sprayer Cerner at 07/24/2022 3:44 PM CDT documented in this encounter Plan of Treatment Not on file documented as of this encounter Visit Diagnoses Not on filedocumented in this encounter Care Teams Teletype Telegrapher Relationship Specialty Start Date End Date Juan José Kendall MD [address] [place] [facility] [address] [place] [phone] PCP - General Family Medicine 12/25/22 Juan José Kendall MD [address] [place] [facility] [address] [place] [phone] Referring Physician Family Medicine 12/25/22 documented as of this encounter
--- OUTSIDE RECORDS SUMMARY | 2025-02-22 09:53 | XMS_ITS | Encounter Summary ---
Author Organization [employer] ([place], [place], [place], [place], [place]) Address [address] [place] [address] Care Team Providers Care Multimedia Instructional Designer Name Role Phone Juan José Kendall MD Primary Care Provider + [phone] Juan José Kendall MD Unavailable [phone] Encounter Details Date Type Department Care Team (Late st Contact Info) Description 09/21/2018 Transcribed Document [facility] [place] [facility] [place] [address] ProviderLaurie MD [address] [place] [address] Social History Tobacco Use Types Packs/Day Years [...] repair. She was more recently admitted to [facility] x2 earlier this month [...] getting wound care. She was transferred to [facility] today for a higher level of care. [...] HTN Cancer Social History: . lives in [place]. No tobacco, ETOH, or illicit drug use. [...] 145 (SEP 21 07:46) H 148 (SEP 18 19:00) DBP 61 (SEP 21 16:00) 60 (SEP 21 07:46) 71 (SEP 20 23:00) MAP 83 (SEP 21 16:00) 82 (SEP 21 07:46) 90 (SEP 20 23:00) SpO2 99 (SEP 21 16:00) 94 [...] 17) L 8.0 (EDGARD 16) AST 11 (EDGARD 17) 14 (EDGARD 14) 14 (EDGARD 10) 11 (EDGARD 07) ALT L 8 (EDGARD 17) L 8 (EDGARD 14) L 7 (DEGARD 10) L 8 (EDGARD 07) ALK P 119 (EDGARD 17) 127 (EDGARD 14) 95 (EDGARD 10) 77 (EDGARD 07) T Bili 0.6 (EDGARD 17) 0.7 (EDGARD 14) 0.5 (EDGARD 10) 0.8 (EDGARD 07) PTN L 5.0 (SEP 17) L 5.0 (SEP 14) L 4.8 (EDGARD 10) L 5.4 (SEP 07) ALB L 2.2 (EDGARD 17) L [...] primary team I discussed with her today Electronically signed by [facility] Conversion [employer] at 07/24/2022 3:44 PM CDT documented in this encounter Plan of Treatment Not on file documented as of this encounter Visit Diagnoses Not on filedocumented in this encounter Care Teams Multimedia Instructional Designer Relationship Specialty Start Date End Date Juan José Kendall MD [address] [facility] [address] [place] [phone] PCP - General Family Medicine 12/25/22 Juan José Kendall MD 12[address] [facility] [address] [place] [phone] Referring Physician Family Medicine 12/25/22 documented as of this encounter
--- OUTSIDE RECORDS SUMMARY | 2025-02-22 09:53 | XMS_ITS | Encounter Summary ---
Author Organization [employer] ([place], [place], [place], [place], [place]) Address [address] [place] [address] Care Team Providers Care Forest Fire Lookout Name Role Phone Juan José Kendall MD Primary Care Provider + [phone] Juan José eKndall MD Unavailable [phone] Encounter Details Date Type Department Care Team (Late st Contact Info) Description 08/30/2018 Transcribed Document [facility] [place] [facility] [place] [address] Laurie Garcia MD [address] [place] [address] Social History Tobacco Use Types Packs/Day Years Used Date Smoking Tobacco: Never Assessed Comments Unknown Sex and Gender Information Value Date Recorded Sex Assigned at Not on file Legal Sex Female 2:23 PM CDT Gender Identity Not on file Sexual Orientation Not on file documented as of this encounter Miscellaneous Notes * Cerner Conversion Note - Laurie Garcia MD - 08/30/2018 7:53 PM CDT Patient: TRUDI [...] getting wound care. She was transferred to [facility] today for a higher level of care. [...] HTN Cancer Social History: . lives in [place]. No tobacco, ETOH, or illicit drug use. Social & Psychosocial Habits Alcohol 06/23/2018 Alcohol Use History, Social Habits No Substance Abuse 06/23/2018 Recreational Drug Use History No Tobacco 06/23/2018 Smoking Status Never (less than 100 in l Smokeless Tobacco Status Never Medications by Classification Antimicrobials cefTRIAXone + Sodium Chloride 0.9% intravenous solution 50 m - 2 Gram, IV Piggyback, [id number], infuse over 30 Minute(s), Routine DAPTOmycin + Sodium Chloride 0.9% intravenous solution 50 mL - 700 mg, IV Piggyback, [id number], infuse over 30 Minute(s) Cardiovascular metoprolol (Lopressor) [...] 15:00) 97.6 (AUGUST 30 15:00) 97.9 (AUGUST 30:37) Mon HR 82 (AUGUST 30 15:00) 82 [...] MAP 78 (AUGUST 30 15:05) 78 (AUGUST 30:37) 78 (AUGUST 30:37) SpO2 99 (AUGUST 30:05) 99 (AUGUST 30:37) 99 (AUGUST 30:) Gen: NAD. morbid obesity. pleasant HEENT: PERRL [...] called OSH micro lab Electronically signed by Aleks, [facility] Conversion Machine Operator Assistant Cerner at 07/24/2022 3:43 PM CDT documented in this encounter Plan of Treatment Not on file documented as of this encounter Visit Diagnoses Not on filedocumented in this encounter Care Teams Forest Fire Lookout Relationship Specialty Start Date End Date Juan José Kendall MD [address] [facility] [address] [place] [address] PCP - General Family Medicine 12/25/22 Juan José Kendall MD [address] [facility] [address] [place] [id number] Referring Physician Family Medicine 12/25/22 documented as of this encounter
--- OUTSIDE RECORDS SUMMARY | 2025-02-22 09:53 | XMS_ITS | Encounter Summary ---
Author Organization [employer] ([place], [place], [place], [place], [place]) Address [address] [place] [address] Care Team Providers Care Web Programmer Name Role Phone Juan José Kendall MD Primary Care Provider + [phone] Juan José Kendall MD Unavailable [phone] Encounter Details Date Type Department Care Team (Late st Contact Info) Description 10/03/2018 Transcribed Document [facility] [place] [address] [place] [address] ProviderLaurie MD [address] [place] [address] Social History Tobacco Use Types Packs/Day Years [...] FRANCISCO MOREJON RN - 10/03/2018 5:06 EDT documented in this encounter Plan of Treatment Not on file documented as of this encounter Visit Diagnoses Not on filedocumented in this encounter Care Teams Web Programmer Relationship Specialty Start Date End Date Juan José Kendall MD [address] [place] [address] [place] [address] PCP - General Family Medicine 12/25/22 Juan José Kendall MD [address] [place] [address] [place] [phone] Referring Physician Family Medicine 12/25/22 documented as of this encounter
--- OUTSIDE RECORDS SUMMARY | 2025-02-22 09:53 | XMS_ITS | Encounter Summary ---
Author Organization [employer] ([place], [place], [place], [place], [place]) Address [address] [place] [address] Care Team Providers Care Principal Law Clerk Name Role Phone Juan José Kendall MD Primary Care Provider + [phone] Juan José Kendall MD Unavailable [phone] Encounter Details Date Type Department Care Team (Late st Contact Info) Description 09/21/2018 Transcribed Document [facility] [place] [facility] [place] [address] Laurie Garcia MD [address] [place] [address] Social History Tobacco Use Types Packs/Day Years Used Date Smoking Tobacco: Never Assessed Comments Unknown Sex and Gender Information Value Date Recorded Sex Assigned at Not on file Legal Sex Female 2:23 PM CDT Gender Identity Not on file Sexual Orientation Not on file documented as of this encounter Miscellaneous Notes * Cerner Conversion Note - Laurie Garcia MD - 09/21/2018 8:11 AM CDT Interdisciplinary Rounds Entered On: 09/21/2018 8:13 EDT Performed On: 09/21/2018 8:11 EDT by PJ NELSON Interdisciplinary Rounds Interdisciplinary Rounds Participants : lunch counter manager Patient's Priority Needs : IV Abx -> 7/3 Wound care-> wound vac PT/OT Progress Toward Discharge : Prior to hospitalization, lived with her spouse, and required assistance with all ADL's. SNF vs home with home health Notes to Care Team : DRG 560 Aftercare ALOS 20-24 days Anticipated DC 10/01/2018 PJ NELSON - 09/21/2018 8:11 EDT Electronically signed by Aleks, [facility] Conversion Program Review Director Cerner at 07/24/2022 3:41 PM CDT documented in this encounter Plan of Treatment Not on file documented as of this encounter Visit Diagnoses Not on filedocumented in this encounter Care Teams Principal Law Clerk Relationship Specialty Start Date End Date Juan José Kendall MD [address] [facility] [address] [place] [id number] PCP - General Family Medicine 12/25/22 Juan José Kendall MD [address] [place] [address] [place] [phone] Referring Physician Family Medicine 12/25/22 documented as of this encounter
--- OUTSIDE RECORDS SUMMARY | 2025-02-22 09:53 | XMS_ITS | Encounter Summary ---
Author Organization [employer] ([place], [place], [place], [place], [place]) Address [address] [place] [address] Care Team Providers Care Pictures Editor Name Role Phone Juan José Kendall MD Primary Care Provider +- [phone] Juan José Kendall MD Unavailable [phone] Encounter Details Date Type Department Care Team (Late st Contact Info) Description 10/03/2018 Transcribed Document [facility] [place] [facility] [place] [address] ProviderLaurie MD [address] [place] [address] Social History Tobacco Use Types Packs/Day Years Used Date Smoking Tobacco: Never Assessed Comments Unknown Sex and Gender Information Value Date Recorded Sex Assigned at Not on file Legal Sex Female 2:23 PM CDT Gender Identity Not on file Sexual Orientation Not on file documented as of this encounter Miscellaneous Notes * Cerner Conversion Note - Historical ProviderMD - 10/03/2018 11:42 AM CDT Patient: [...] 09:55) 67 (OCT 02 23:00) 81 (OCT 03:45) MAP 99 (OCT 03:45) 96 (OCT 02 15:00) 99 (OCT 03 [...] on filedocumented in this encounter Care Teams Pictures Editor Relationship Specialty Start Date End Date Juan José Kendall MD [address] [facility] [address] [place] [address] PCP - General Family Medicine 12/25/22 Juan José Kendall MD [address] [place] [facility] [address] [place] [phone] Referring Physician Family Medicine 12/25/22 documented as of this encounter
--- OUTSIDE RECORDS SUMMARY | 2025-02-22 09:53 | XMS_ITS | Encounter Summary ---
Author Organization [employer] ([place], [place], [place], [place], [place]) Address [address] [place] [address] Care Team Providers Care Air Traffic Control Equipment Repairer Name Role Phone Juan José Kendall MD Primary Care Provider +- [phone] Juan José Kendall MD Unavailable [phone] Encounter Details Date Type Department Care Team (Late st Contact Info) Description 09/09/2018 Transcribed Document [facility] [place] Family Medicine [address] [place] [address] ProviderLaurie MD [address] [place] [address] Social History Tobacco Use Types Packs/Day Years Used Date Smoking Tobacco: Never Assessed Comments Unknown Sex and Gender Information Value Date Recorded Sex Assigned at Not on file Legal Sex Female 2:23 PM CDT Gender Identity Not on file Sexual Orientation Not on file documented as of this encounter Miscellaneous Notes * Cerner Conversion Note - Laurie ProviderMD - 09/09/2018 3:00 PM CDT Pain Assessment Entered On: 09/09/2018 17:07 EDT Performed On: 09/09/2018 17:00 EDT by FRANTZ BROWN RN Intervention Information: acetaminophen(Pending Validation) Performed by Nanda Don, HARNESS RIGGER-STUDENT NURSE on 09/09/2018 16:00:00 EDT acetaminophen,500mg Oral Pain Assessment Pain Assessment : Follow-up assessment Pain Scale Used : 0-10 Scale FRANTZ BROWN RN - 09/09/2018 17:06 EDT Pain Scale [...] Family Medicine 12/25/22 Juan José Kendall MD [address] [place] [address] [address] [place] [phone] Referring Physician Family Medicine 12/25/22 documented as of this encounter
--- OUTSIDE RECORDS SUMMARY | 2025-02-22 09:53 | XMS_ITS | Encounter Summary ---
Author Organization [employer] ([place], [place], [place], [place], [place]) Address [address] [place] [address] Care Team Providers Care Irrigation Laborer Name Role Phone Juan José Kendall MD Primary Care Provider +- [phone] Juan José Kendall MD Unavailable [phone] Encounter Details Date Type Department Care Team (Late st Contact Info) Description 09/21/2018 Transcribed Document [facility] [place] [address] [place] [address] ProviderLaurie MD [address] [place] [address] Social History Tobacco Use Types Packs/Day Years [...] : 0-10 Scale Mercedes Krishnan RN - 09/22/2018 2:32 EDT Pain Scale Intensity : 2 Mercedes Krishnan RN - 09/22/2018 2:32 EDT Image 4 - Images currently included in the form version of this document have not been included in the text rendition version of the form. Electronically signed by Adia Fink Conversion Fitting Room Maintenance Mechanic Cecener at 07/24/2022 3:41 PM CDT documented in this encounter Plan of Treatment Not on file documented as of this encounter Visit Diagnoses Not on filedocumented in this encounter Care Teams Irrigation Laborer Relationship Specialty Start Date End Date Juan José Kendall MD [address] [facility] [address] [place] [address] PCP - General Family Medicine 12/25/22 Juan José Kendall MD [address] [facility] [address] [place] [address] Referring Physician Family Medicine 12/25/22 documented as of this encounter
--- OUTSIDE RECORDS SUMMARY | 2025-02-22 09:53 | XMS_ITS | Encounter Summary ---
Author Organization [employer] ([place], [place], [place], [place], [place]) Address [address] [place] [address] Care Team Providers Care Finishing Area Supervisor Name Role Phone Juan José Kendall MD Primary Care Provider + [phone] Juan José Kendall MD Unavailable [phone] Encounter Details Date Type Department Care Team (Late st Contact Info) Description 10/03/2018 Transcribed Document [facility] [place] [address] [place] [address] ProviderLaurie MD [address] [place] [address] Social History Tobacco Use Types Packs/Day Years [...] on filedocumented in this encounter Care Teams Finishing Area Supervisor Relationship Specialty Start Date End Date Juan José Kendall MD [address] [place] [address] [place] [address] PCP - General Family Medicine 12/25/22 Juan José Kendall MD [address] [place] [address] [place] [phone] Referring Physician Family Medicine 12/25/22 documented as of this encounter
--- OUTSIDE RECORDS SUMMARY | 2025-02-22 09:53 | XMS_ITS | Encounter Summary ---
Author Organization [employer] ([place], [place], [place], [place], [place]) Address [address] [place] [address] Care Team Providers Care Land Appraiser Name Role Phone Juan José Kendall MD Primary Care Provider + [phone] Juan José Kendall MD Unavailable [phone] Encounter Details Date Type Department Care Team (Late st Contact Info) Description 09/09/2018 Transcribed Document [facility] Family Medicine [address] [place] [address] ProviderLaurie MD [address] [place] [address] Social History Tobacco Use Types Packs/Day Years [...] On: 09/09/2018 8:30 EDT by Nery Mckee Dietician Clinical Dietitian Note Clinical Dietitian Note : 09/09: RD rec'd consult for BMI>40. 63 yo female newly admitted to LT[facility]. Pt seen yesterday by RD-will reorder supplements and follow up as scheduled. Nery Mckee Deicer Inspector Electric - 09/09/2018 8:30 EDT documented in this encounter Plan of Treatment Not on file documented as of this encounter Visit Diagnoses Not on filedocumented in this encounter Care Teams Land Appraiser Relationship Specialty Start Date End Date Juan José Kendall MD [address] [facility] [address] [place] [phone] PCP - General Family Medicine 12/25/22 Juan José Kendall MD [address] [facility] [address] [place] [phone] Referring Physician Family Medicine 12/25/22 documented as of this encounter
--- OUTSIDE RECORDS SUMMARY | 2025-02-22 09:54 | XMS_ITS | Encounter Summary ---
Author Organization [employer] ([place], [place], [place], [place], [place]) Address [address] [place] [address] Care Team Providers Care Advertising Clerk Name Role Phone Juan José Kendall MD Primary Care Provider +- [phone] Juan José Kendall MD Unavailable [phone] Encounter Details Date Type Department Care Team (Late st Contact Info) Description 09/09/2018 Transcribed Document [facility] [place] [facility] [place] [address] ProviderLaurie MD [address] [place] [address] Social History Tobacco Use Types Packs/Day Years Used Date Smoking Tobacco: Never Assessed Comments Unknown Sex and Gender Information Value Date Recorded Sex Assigned at Not on file Legal Sex Female 2:23 PM CDT Gender Identity Not on file Sexual Orientation Not on file documented as of this encounter Miscellaneous Notes * Cerner Conversion Note - Laurie ProviderMD - 09/09/2018 2:03 PM CDT Treatment Intervention, PT Entered On: 09/19/2018 16:24 EDT Performed On: 09/19/2018 14:34 EDT by Awilda Mallory Molded Goods Controls Operator General Information, PT Visit Type, PT : Treatment Note Patient Orders : Order Date Order Ordering 09/08/2018 20:45 PT Evaluation and Treatment Ordered By: JONES HIDALGO MD-INT 09/09/2018 14:03 PT Additional Treatment Ordered By: MONICA ROBIN PT 09/15/2018 16:36 Consult to Physical Therapy Ordered [...] : Occupational Therapist Assisted by, PT : machine set up technician/aide Personal Devices : Personal Devices Glasses Assistive Devices : Assistive Devices No Devices Recorded Precautions in Place : Fall prevention measures Awilda Mallory Molded Goods Controls Operator - 09/19/2018 16:19 EDT General Status Patient Received Status : Supine in bed Treatment Start Time : 09/19/2018 14:09 EDT Patient Left Status : Supine in bed, RN/PCT informed, Family/Visitors at bedside, All needs met and within reach RN/PCT Informed Comment : nsg Jasmyne Treatment End Time : 09/19/2018 14:34 EDT Treatment Time : 25 Minute(s) Awilda Mallory Molded Goods Controls Operator - 09/19/2018 16:19 EDT Therapeutic Activities Sitting Activities Grid Activity #1 Activities : Static Position : Sit unsupported Time : 10 minutes Assistance : Supervision Patient Response/Comment : pt sat EOB with LLE supported Awilda Mallory Molded Goods Controls Operator - 09/19/2018 16:19 EDT Functional Mobility Mobility Grid Supine to Sit : Rehab Moderate assistance (Comment: x 2 [Awilda Mallory Molded Goods Controls Operator - 09/19/2018 16:19 EDT] ) Sit to Supine : Rehab Moderate assistance (Comment: x 2 [Awilda Mallory Molded Goods Controls Operator - 09/19/2018 16:19 EDT] ) Awilda Mallory Molded Goods Controls Operator - 09/19/2018 16:19 EDT Gait Training/Assessment, PT Gait Assistance Level : Unable to assess/activity not appropriate Awilda Mallory Molded Goods Controls Operator - 09/19/2018 16:19 EDT Cognitive Treatment, PT Orientation : Oriented x 4 Awilda Mallory Molded Goods Controls Operator - 09/19/2018 16:19 EDT Edu Topics Physical Therapy Education Grid Bed Mobility Training : Needs further teaching Gait Training : Needs further teaching Role of Physical Therapy : Verbalizes understanding Transfer Training : Needs further teaching Awilda Mallory Molded Goods Controls Operator - 09/19/2018 16:19 EDT Indication Assesessment, PT Physical Therapy Indicated : Yes Awilda Mallory Molded Goods Controls Operator - 09/19/2018 16:19 EDT Plan of Care, PT PT Tx Plan/Goals Established w Patient : Yes Awilda Mallory Molded Goods Controls Operator - 09/19/2018 16:19 EDT Short Term Goals Mobility/Bed Mobility STG PT Grid Goal #1 Goal #2 Activity : Supine to sit Sit to stand Assist : Assist, moderate Assist, moderate Date to Meet : 09/23/2018 EDT 09/23/2018 EDT Goal Status : Goal met Initial goal Date Met : 09/12/2018 EDT Comment : Awilda Barba Molded Goods Controls Operator - 09/19/2018 16:19 EDT Awilda Mallory Molded Goods Controls Operator - 09/19/2018 16:19 EDT Skilled Nursing Goals Mobility/Bed Mobility LTG PT Grid Goal #1 Goal #2 Activity : Supine to sit Sit to stand Assist : Assist, minimal Assist, minimal Date to Meet : 10/07/2018 EDT 10/07/2018 EDT Goal Status : Goal met Intial Goal Date Met : 09/12/2018 EDT Comment : Awilda Barba Molded Goods Controls Operator - 09/19/2018 16:19 EDT Awilda Mallory Molded Goods Controls Operator - 09/19/2018 16:19 EDT Transfer LTG Grid Goal #1 Destination : Chair, with arms Assist : Assist, minimal Date to Meet : 10/07/2018 EDT Goal Status : Intial Goal Comment : Awilda Barba Molded Goods Controls Operator - 09/19/2018 16:19 EDT Treatment Note Subjective Comment : pt agreeable to PTx, nsg cleared pt for PTx Additional Objective Information : pt attempted to stand but was not able to lift self off bed Assessment : pt very anxious about moving due to not wanting to increase pain in L knee Plan for Treatment : continue POC Awilda Mallory Molded Goods Controls Operator - 09/19/2018 16:19 EDT Pain Assessment Pain Score Post-Intervention. : 4 Location : Knee, left Pain Improved by : Medication, Relaxation, Repositioning Awilda Mallory Molded Goods Controls Operator - 09/19/2018 16:19 EDT Image 1 - Images currently included in the form version of this document have not been included in the text rendition version of the form. Anticipated Discharge Needs, OT/PT Anticipated Discharge to : Unit, rehabilitation Recommend Continued Therapy at Discharge : Yes Awilda Mallory Molded Goods Controls Operator - 09/19/2018 16:19 EDT [place] PT Charges PT Ther Activities Ea 15 Min : 2 Awilda Mallory Molded Goods Controls Operator - 09/19/2018 16:19 EDT documented in this encounter Plan of Treatment Not on file documented as of this encounter Visit Diagnoses Not on filedocumented in this encounter Care Teams Advertising Clerk Relationship Specialty Start Date End Date Juan José Kendall MD [address] [facility] [address] [place] [address] PCP - General Family Medicine 12/25/22 Juan José Kendall MD [address] [facility] [address] [place] [phone] Referring Physician Family Medicine 12/25/22 documented as of this encounter
--- OUTSIDE RECORDS SUMMARY | 2025-02-22 09:54 | XMS_ITS | Encounter Summary ---
Author Organization [employer] ([place], [place], [place], [place], [place]) Address [address] [place] [address] Care Team Providers Care Debt Collection Specialist Name Role Phone Juan José Kendall MD Primary Care Provider + [phone] Juan José Kendall MD Unavailable [phone] Encounter Details Date Type Department Care Team (Late st Contact Info) Description 06/28/2018 Transcribed Document [facility] [place] [facility] [address] ProviderLaurie MD [address] [place] [address] Social History Tobacco Use Types Packs/Day Years Used Date Smoking Tobacco: Never Assessed Comments Unknown Sex and Gender Information Value Date Recorded Sex Assigned at Not on file Legal Sex Female 2:23 PM CDT Gender Identity Not on file Sexual Orientation Not on file documented as of this encounter Miscellaneous Notes * Cerner Conversion Note - Laurie Garcia MD - 06/28/2018 8:40 PM CDT Patient: TRUDI [...] she meets all the criteria for discharge. category planner as well as nursing staff to [...] on filedocumented in this encounter Care Teams Debt Collection Specialist Relationship Specialty Start Date End Date [...]
--- OUTSIDE RECORDS SUMMARY | 2025-02-22 09:54 | XMS_ITS | Encounter Summary ---
Author Organization [employer] ([place], [place], [place], [place], [place]) Address [address] [place] [address] Care Team Providers Care Nurse Ldr Name Role Phone Juan José Kendall MD Primary Care Provider + [phone] Juan José Kendall MD Unavailable [phone] Encounter Details Date Type Department Care Team (Late st Contact Info) Description 10/03/2018 Transcribed Document [facility] [place] [address] [place] [address] ProviderLaurie MD [address] [place] [address] Social History Tobacco Use Types Packs/Day Years [...] Management Note : 10/03/2018 Call received from [facility] [place], they are unable to offer a bed for this patient. Patient and notified. They request a [facility] (P: [phone] F: [phone]), faxed per their request. Awaiting a call back. Care Management Note Report : LESLIE PJ - 10/03/18 13:54:20 10/03/2018 Bev Lewis, here [...] it be close to her home in [place]. Referrals faxed to Debbie Patricia (Signature liaison), [facility], Zach Donohue, and Ron. Awaiting a call back. NELSONPJ BELLO - 09/28/18 16:26:43 09/28/2018 Fax recieved from [facility] with approval for LTACH services 09/29-10/04. Auth# [id number]. Fax next clinical review to [phone] on 10/05/2018. PJ NELSON 09/28/18 08:24:24 09/28/2018 Clinical review faxed to [facility] ([phone]) to request coverage for continued LTACH services. Approval pending. Auth# [id number]. PJ NELSON 09/21/18 15:48:14 09/21/2018 Fax recieved from [facility] with approval for LTACH coverage 09/22/2018-09/28/2018. Auth# [id number]. Fax next clinical review to [phone] on 09/28/2018. PJ NELSON 09/21/18 08:22:57 09/21/2018 Clinical review faxed to [facility] ([phone]) to request coverage for continued LTACH services. Approval pending. Auth# [id number]. PJ NELSON 09/15/18 11:34:17 09/15/2018 Fax recieved from [facility] with approval for LTACH services 09/15-09/21/2018. Auth# [id number]. Fax next clinical review to [phone] on 09/21/2018. LESLIE PJ - 09/14/18 08:28:49 09/14/2018 [facility] ([phone]) to request coverage for continued LTACH services. Approval pending. Auth# [id number]. Chuyita Briceno, Clinical Assessment Liaison - 09/09/18 [...] unit or SNF. She has previously used [facility] and prefers to use them again if needed. The patient owns a shower chair, BSC and w/c. The patient has never needed a dialysis clinic. The patient has not fallen in the past 3 months. PCP- Dr. [facility]- Orthopedic- Dr. Shay Guerrero [facility]- - [facility]- [facility] Natalia The patient does wish to return home upon discharge but understands that rehab/SNF may be needed. All papers were explained and signed. No other issues. CM will continue to monitor. Documentation Status Complete : Yes RASHEED NELSONRALPH - 10/03/2018 14:53 EDT documented in this encounter Plan of Treatment Not on file documented as of this encounter Visit Diagnoses Not on filedocumented in this encounter Care Teams Nurse Ldr Relationship Specialty Start Date End Date Juan José Kendall MD [address] [facility] [address] [place] [address] PCP - General Family Medicine 12/25/22 Juan José Kendall MD [address] [facility] [address] [place] [id number] Referring Physician Family Medicine 12/25/22 documented as of this encounter
--- OUTSIDE RECORDS SUMMARY | 2025-02-22 09:54 | XMS_ITS | Encounter Summary ---
Author Organization [email or web address] ([place], [place], [place], [place], [place]) Address [address] [place] [address] Care Team Providers Care Ssn/Ssbn Assistant Navigator Name Role Phone Juan José Kendall MD Primary Care Provider +- [phone] Juan José Kendall MD Unavailable [phone] Encounter Details Date Type Department Care Team (Late st Contact Info) Description 09/20/2018 Transcribed Document [facility] [place] [address] [place] [address] ProviderLaurie MD [address] [place] [address] Social History Tobacco Use Types Packs/Day Years Used Date Smoking Tobacco: Never Assessed Comments Unknown Sex and Gender Information Value Date Recorded Sex Assigned at Not on file Legal Sex Female 2:23 PM CDT Gender Identity Not on file Sexual Orientation Not on file documented as of this encounter Miscellaneous Notes * Cerner Conversion Note - Laurie Garcia MD - 09/20/2018 3:00 AM CDT Pain Assessment Entered On: 09/20/2018 7:56 EDT Performed On: 09/20/2018 4:45 EDT by Linh Honeycutt RN Intervention Information: acetaminophen Performed by Linh Honeycutt RN on 09/20/2018 03:45:00 EDT acetaminophen,500mg Oral Pain Assessment Pain Assessment : Follow-up assessment Pain Scale Goal : 3 Pain Improved by Intervention : Yes Linh Honeycutt RN - 09/20/2018 7:56 EDT Electronically signed by Aleks [facility] Conversion Military Equipment Specialist Cerner at 07/24/2022 3:41 PM CDT documented in this encounter Plan of Treatment Not on file documented as of this encounter Visit Diagnoses Not on filedocumented in this encounter Care Teams Ssn/Ssbn Assistant Navigator Relationship Specialty Start Date End Date Juan José Kendall MD [address] [facility] [address] [place] [address] PCP - General Family Medicine 12/25/22 Juan José Kendall MD [address] [facility] [address] [place] [address] Referring Physician Family Medicine 12/25/22 documented as of this encounter
--- OUTSIDE RECORDS SUMMARY | 2025-02-22 09:55 | XMS_ITS | Encounter Summary ---
Author Organization [employer] ([place], [place], [place], [place], [place]) Address [address] [place] [address] Care Team Providers Care Sewing Teacher Name Role Phone Juan José Kendall MD Primary Care Provider +- [phone] Juan José Kendall MD Unavailable [phone] Encounter Details Date Type Department Care Team (Late st Contact Info) Description 09/08/2018 Transcribed Document [facility] [place] Family Medicine [address] [place] [address] ProviderLaurie MD [address] [place] [address] Social History Tobacco Use Types Packs/Day Years [...] : 4 Angy Esqueda, Emeli - 09/26/2018 4:01 EDT Image 4 - Images currently included in the form version of this document have not been included in the text rendition version of the form. documented in this encounter Plan of Treatment Not on file documented as of this encounter Visit Diagnoses Not on filedocumented in this encounter Care Teams Sewing Teacher Relationship Specialty Start Date End Date Juan José Kendall MD [address] [facility] [address] [place] [address] PCP - General Family Medicine 12/25/22 Juan José Kendall MD [address] [facility] [address] [place] [address] Referring Physician Family Medicine 12/25/22 documented as of this encounter
--- OUTSIDE RECORDS SUMMARY | 2025-02-22 09:55 | XMS_ITS | Encounter Summary ---
Author Organization [employer] ([place], [place], [place], [place], [place]) Address [address] [place] [address] Care Team Providers Care Cable Splicing Technician Name Role Phone Juan José Kendall MD Primary Care Provider + [phone] Juan José Kendall MD Unavailable [phone] Encounter Details Date Type Department Care Team (Late st Contact Info) Description 10/03/2018 Transcribed Document [facility] [place] [address] [place] [address] ProviderLaurie MD [address] [place] [address] Social History Tobacco Use Types Packs/Day Years [...] it be close to her home in [place]. Referrals faxed to Debbie Patricia (Signature liaison), [place], [place], and [place]. Awaiting a call back. NELSONPJ BELLO - 09/28/18 16:26:43 09/28/2018 Fax recieved from [facility] with approval for LTACH services 09/29-10/04. Auth# [id number]. Fax next clinical review to [phone] on 10/05/2018. PJ NELSON - 09/28/18 08:24:24 09/28/2018 Clinical review faxed to [facility] ([phone]) to request coverage for continued LTACH services. Approval pending. Auth# [id number]. PJ NELSON - 09/21/18 15:48:14 09/21/2018 Fax recieved from [facility] with approval for LTACH coverage 09/22/2018-09/28/2018. Auth# [id number]. Fax next clinical review to [phone] on 09/28/2018. NELSONPJ BELLO 09/21/18 08:22:57 09/21/2018 [facility][phone][facility] to request coverage for continued LTACH services. Approval pending. Auth# [id number]. NELSONPJ BELLO - 09/15/18 11:34:17 09/15/2018 Fax recieved from [facility] with approval for LTACH services 09/15-09/21/2018. Auth# [id number]. Fax next clinical review to [phone] on 09/21/2018. PJ NELSON - 09/14/18 08:28:49 09/14/2018 Clinical review faxed to [facility] ([phone]) to request coverage for continued LTACH services. Approval pending. Auth# [id number]. Janak Chuyita, Clinical Assessment Liaison - 09/09/18 [...] unit or SNF. [facility] and prefers to use them again if needed. The patient owns a shower chair, BSC and w/c. The patient has never needed a dialysis clinic. The patient has not fallen in the past 3 months. PCP- Dr. [facility]je[facility]- Orthopedic- Dr. Shay Guerrero [facility]- [facility]- [facility] Natal[place] The patient does wish to return home upon discharge but understands that rehab/SNF may be needed. All papers were explained and signed. No other issues. CM will continue to monitor. Documentation Status Complete : Yes PJ NELSON - 10/03/2018 13:53 EDT Electronically signed by Aleks, [facility] Conversion Corporate Webmaster Cerner at 07/24/2022 3:47 PM CDT documented in this encounter Plan of Treatment Not on file documented as of this encounter Visit Diagnoses Not on filedocumented in this encounter Care Teams Cable Splicing Technician Relationship Specialty Start Date End Date Juan José Kendall MD [address] [facility] [address] [place] [phone] PCP - General Family Medicine 12/25/22 Juan José Kendall MD [address] [facility] [address] [place] [address] Referring Physician Family Medicine 12/25/22 documented as of this encounter
--- OUTSIDE RECORDS SUMMARY | 2025-02-22 09:55 | XMS_ITS | Encounter Summary ---
Author Organization [employer] ([place], [place], [place], [place], [place]) Address [address] [place] [address] Care Team Providers Care Fast Food Services Manager Name Role Phone Juan José Kendall MD Primary Care Provider + [phone] Juan José Kendall MD Unavailable [phone] Encounter Details Date Type Department Care Team (Late st Contact Info) Description 09/09/2018 Transcribed Document [facility] [place] [facility] [place] [address] Laurie Garcia MD [address] [place] [address] Social History Tobacco Use Types Packs/Day Years Used Date Smoking Tobacco: Never Assessed Comments Unknown Sex and Gender Information Value Date Recorded Sex Assigned at Not on file Legal Sex Female 2:23 PM CDT Gender Identity Not on file Sexual Orientation Not on file documented as of this encounter Miscellaneous Notes * Cerner Conversion Note - Historical ProviderMD - 09/09/2018 1:56 PM CDT Care [...] [facility]- Orthopedic- Dr. Shay Guerrero [facility]- - [facility] SNF- [facility] Natalia The patient does wish to return home upon discharge but understands that rehab/SNF may be needed. All papers were explained and signed. No other issues. CM will continue to monitor. Documentation Status Complete : Yes Chuyita Briceno, Clinical Assessment Liaison - 09/09/2018 13:56 EDT Electronically signed by Aleks, [facility] Conversion Production Machinist Cerner at 07/24/2022 3:32 PM CDT documented in this encounter Plan of Treatment Not on file documented as of this encounter Visit Diagnoses Not on filedocumented in this encounter Care Teams Fast Food Services Manager Relationship Specialty Start Date End Date Juan José Kendall MD [address] [facility] [address] [place] [address] PCP - General Family Medicine 12/25/22 Juan José Kendall MD [address] [facility] [address] [place] [address] Referring Physician Family Medicine 12/25/22 documented as of this encounter
--- OUTSIDE RECORDS SUMMARY | 2025-02-22 09:55 | XMS_ITS | Encounter Summary ---
Author Organization [employer] ([place], [place], [place], [place], [place]) Address [address] [place] [address] Care Team Providers Care Director Labor Standards Name Role Phone Juan José Kendall MD Primary Care Provider +- [phone] Juan José Kendall MD Unavailable [phone] Encounter Details Date Type Department Care Team (Late st Contact Info) Description 09/20/2018 Transcribed Document [facility] [place] [address] [place] [address] ProviderLaurie MD [address] [place] [address] Social History Tobacco Use Types Packs/Day Years Used Date Smoking Tobacco: Never Assessed Comments Unknown Sex and Gender Information Value Date Recorded Sex Assigned at Not on file Legal Sex Female 2:23 PM CDT Gender Identity Not on file Sexual Orientation Not on file documented as of this encounter Miscellaneous Notes * Cerner Conversion Note - Laurie ProviderMD - 09/20/2018 2:00 AM CDT Valance Cutter Details Entered On: 09/20/2018 3:49 EDT Performed [...] filedocumented in this encounter Care Teams Director Labor Standards Relationship Specialty Start Date End Date Juan José Kendall MD [address] [facility] [address] [place] [address] PCP - General Family Medicine 12/25/22 Juan José Kendall MD [address] [facility] [address] [place] [address] Referring Physician Family Medicine 12/25/22 documented as of this encounter
--- OUTSIDE RECORDS SUMMARY | 2025-02-22 09:55 | XMS_ITS | Clinical Summary ---
Author Organization [employer] ([place], [place], [place], [place], [place]) Address [address] [place] [address] Care Team Providers Care Senior Software Quality Engineer Name Role Phone Juan José Kendall MD Primary Care Provider [phone] Juan José Kendall MD Unavailable [phone] Social History Tobacco Use Types Packs/Day Years [...] Screening 1994 Shingles Vaccine (Zoster) (2 of 2) 10/29/20172017 Pneumococcal 50+ years (2 of 2 - PCV20 or PCV21) 11/09/2020 11/10/2019 Falls Risk Screening 04/05/2024 COVID-19 VACCINE (3 - 2024- season) 2024, 07/15/2020 Influenza Vaccine (#1) 2024 02/09/2020 Respiratory Syncytial Virus (RSV) Adult or (1 - 1-dose 75+ series) 2029 Insurance BLUE CROSS/BLUE SHIELD MEDICARE PART A B Care Teams Senior Software Quality Engineer Relationship Specialty Start Date End Date Juan José Kendall MD [address] [facility] [address] [place] [address] PCP - General Family Medicine 12/25/22 Juan José Kendall MD [address] [facility] [address] [place] [address] Referring Physician Family Medicine 12/25/22
--- OUTSIDE RECORDS SUMMARY | 2025-02-22 09:55 | XMS_ITS | Encounter Summary ---
Author Organization [employer] ([place], [place], [place], [place], [place]) Address [address] [place] [address] Care Team Providers Care Pickling Grader Name Role Phone Juan José Kendall MD Primary Care Provider + [phone] Juan José Kendall MD Unavailable [phone] Encounter Details Date Type Department Care Team (Late st Contact Info) Description 10/03/2018 Transcribed Document [facility] Family Medicine [facility] [place] [address] Laurie Garcia MD [address] [place] [address] Social History Tobacco Use Types Packs/Day Years Used Date Smoking Tobacco: Never Assessed Comments Unknown Sex and Gender Information Value Date Recorded Sex Assigned at Not on file Legal Sex Female 2:23 PM CDT Gender Identity Not on file Sexual Orientation Not on file documented as of this encounter Miscellaneous Notes * Cerner Conversion Note - Laurie ProviderMD - 10/03/2018 9:55 AM CDT Care Management Assessment/Plan Entered On: 10/03/2018 9:57 EDT Performed On: 10/03/2018 9:55 EDT by PJ NELSON Care Management Note Care Management Note : 10/03/2018 Jose clinical liaison Zach Donohue, coming to the unit to eval patient for possible bed placement. Updates faxed per their request. Care Management Note Report : JP NELSON - 09/29/18 16:38:16 09/29/2018 Per ID, abx therapy to stop 10/05/2018. Patient states she is open to rehab, but prefers it be close to her home in [place]. Referrals faxed to Debbie Patricia (Signature liaison), Grand [facility], Zach Donohue, and Ron. Awaiting a call back. RASHEED NELSONRALPH - 09/28/18 16:26:43 09/28/[address] [facility] with approval for LTACH services 09/29-10/04. Auth# [id number]. Fax next clinical review to [phone] on 10/05/2018. NELSONPJ - 09/28/18 08:24:24 09/28/2018 Clinical review faxed to [facility] ([phone]) to request coverage for continued LTACH services. Approval pending. Auth# [id number]. NELSONPJ BELLO - 09/21/18 15:48:14 09/21/[address] [facility] with approval for LTACH coverage 09/22/2018-09/28/2018. Auth# [id number]. Fax next clinical review to [phone] on 09/28/2018. PJ NELSON - 09/21/18 08:22:57 09/21/2018 Clinical review faxed to [facility] ([phone]) to request coverage for continued LTACH services. Approval pending. Auth# [id number]. PJ NELSON - 09/15/18 11:34:17 09/15/[address] [facility] with approval for LTACH services 09/15-09/21/2018. Auth# [id number]. Fax next clinical review to [phone] on 09/21/2018. PJ NELSON - 09/14/18 08:28:49 09/14/2018 Clinical review faxed to [facility] ([phone]) to request coverage for continued LTACH services. Approval pending. Auth# [id number]. Chuyita Briceno, Clinical Assessment Liaison - 09/09/18 [...] [facility]- Orthopedic- Dr. Shay Guerrero [facility]- - [facility]- [facility] Natal[place] The patient does wish to return home upon discharge but understands that rehab/SNF may be needed. All papers were explained and signed. No other issues. CM will continue to monitor. Documentation Status Complete : Yes LESLIE RASHEEDRALPH - 10/03/2018 9:55 EDT documented in this encounter Plan of Treatment Not on file documented as of this encounter Visit Diagnoses Not on filedocumented in this encounter Care Teams Pickling Grader Relationship Specialty Start Date End Date Juan José Kendall MD [address] [place] [address] [address] [place] [address] PCP - General Family Medicine 12/25/22 [place] [address] [place] [address] [address] [place] [address] Referring Physician Family Medicine 12/25/22 documented as of this encounter
--- OUTSIDE RECORDS SUMMARY | 2025-02-22 09:55 | XMS_ITS | Encounter Summary ---
Author Organization [employer] ([place], [place], [place], [place], [place]) Address [address] [place] [address] Care Team Providers Care Engagement Lead Name Role Phone Juan José Kendall MD Primary Care Provider +- [phone] Juan José Kendall MD Unavailable [phone] Encounter Details Date Type Department Care Team (Late st Contact Info) Description 06/28/2018 Transcribed Document [facility] [place] Family Medicine [address] [place] [address] ProviderLaurie MD [address] [place] [address] Social History Tobacco Use Types Packs/Day Years [...] Steph Avendaño RN - 06/28/2018 4:48 EDT Electronically signed by Aleks [facility] Conversion Crm Dynamics Developer Cerner at 07/24/2022 3:53 PM CDT documented in this encounter Plan of Treatment Not on file documented as of this encounter Visit Diagnoses Not on filedocumented in this encounter Care Teams Engagement Lead Relationship Specialty Start Date End Date [...]
--- OUTSIDE RECORDS SUMMARY | 2025-02-22 09:55 | XMS_ITS | Encounter Summary ---
Author Organization [employer] ([place], [place], [place], [place], [place]) Address [address] [place] [address] Care Team Providers Care Finish Specialist Name Role Phone Juan José Kendall MD Primary Care Provider + [phone] Juan José Kendall MD Unavailable [phone] Encounter Details Date Type Department Care Team (Late st Contact Info) Description 06/28/2018 Transcribed Document [facility] [place] Family Medicine [facility] [place] [address] ProviderLaurie MD [address] [place] [address] Social History Tobacco Use Types Packs/Day Years [...] 06/28/2018 12:18 EDT by JAYE MAYFIELD, Case Management-Motion Graphics Artist DC Instructions HWD Medical Equipment For Home Use : PT HAS A WALKER AND BSC Home Health Services : PT WILL SEE SURGEON AT POST OP APPOINTMENT AND HAVE THERAPY SCHEDULED WHEN APPROPRIATE JAYE MAYFIELD, Case Management-Motion Graphics Artist - 06/28/2018 12:18 EDT documented in this encounter Plan of Treatment Not on file documented as of this encounter Visit Diagnoses Not on filedocumented in this encounter Care Teams Finish Specialist Relationship Specialty Start Date End Date Juan José Kendall MD [address] [facility] [address] [place] [address] PCP - General Family Medicine 12/25/22 Juan José Kendall MD [facility] [address] [place] [address] Referring Physician Family Medicine 12/25/22 documented as of this encounter
--- OUTSIDE RECORDS SUMMARY | 2025-02-22 09:56 | XMS_ITS | Referral Summary ---
Author Organization [employer] ([place], [place], [place], [place], [place]) Address [address] [place] [address] Care Team Providers Care Lpn Care Manager Name Role Phone Juan José Kendall MD Primary Care Provider + [phone] Juan José Kendall MD Unavailable [phone] Social History Tobacco Use Types Packs/Day Years Used Date Smoking Tobacco: Never Assessed Comments Unknown Sex and Gender Information Value Date Recorded Sex Assigned at Not on file Legal Sex Female 2:23 PM CDT Gender Identity Not on file Sexual Orientation Not on file Plan of Treatment Not on file Insurance BLUE CROSS/BLUE SHIELD MEDICARE PART A B Care Teams Lpn Care Manager Relationship Specialty Start Date End Date Juan José Kendall MD [address] [facility] [address] [place] [address] PCP - General Family Medicine 12/25/22 Juan José Kendall MD [facility] [address] [place] [address] Referring Physician Family Medicine 12/25/22
--- OUTSIDE RECORDS SUMMARY | 2025-02-22 09:56 | XMS_ITS | Encounter Summary ---
Author Organization [employer] ([place], [place], [place], [place], [place]) Address [address] [place] [address] Care Team Providers Care Manufacturing Technology Analyst Name Role Phone Juan José Kendall MD Primary Care Provider + [phone] Juan José Kendall MD Unavailable [phone] Encounter Details Date Type Department Care Team (Late st Contact Info) Description 10/03/2018 Transcribed Document [facility] [place] [address] [place] [address] ProviderLaurie MD [address] [place] [address] Social History Tobacco Use Types Packs/Day Years [...] EDT Electronically signed by Adia Fink Conversion Child And Adolescent Psychologist Cerner at 07/24/2022 3:46 PM CDT documented in this encounter Plan of Treatment Not on file documented as of this encounter Visit Diagnoses Not on filedocumented in this encounter Care Teams Manufacturing Technology Analyst Relationship Specialty Start Date End Date Juan José Kendall MD [address] [place] [address] [place] [address] PCP - General Family Medicine 12/25/22 Juan José Kendall MD [address] [place] [address] [place] [address] Referring Physician Family Medicine 12/25/22 documented as of this encounter
--- OUTSIDE RECORDS SUMMARY | 2025-02-22 09:56 | XMS_ITS | Encounter Summary ---
Author Organization [employer] ([place], [place], [place], [place], [place]) Address [address] [place] [address] Care Team Providers Care Specialty Trimmer Name Role Phone Juan José Kendall MD Primary Care Provider + [phone] Juan José Kendall MD Unavailable [phone] Encounter Details Date Type Department Care Team (Late st Contact Info) Description 10/03/2018 Transcribed Document [facility] [place] [address] [place] [address] ProviderLaurie MD [address] [place] [address] Social History Tobacco Use Types Packs/Day Years Used Date Smoking Tobacco: Never Assessed Comments Unknown Sex and Gender Information Value Date Recorded Sex Assigned at Not on file Legal Sex Female 2:23 PM CDT Gender Identity Not on file Sexual Orientation Not on file documented as of this encounter Miscellaneous Notes * Cerner Conversion Note - Laurie ProviderMD - 10/03/2018 5:00 PM CDT Chart Check - Review Order Profile Entered On: 10/03/2018 16:32 EDT Performed On: 10/03/2018 17:00 EDT by Lisa Haile RN Chart Check Powerplans Initiated/Discontinued as Appropriate : Yes All Active Orders Reviewed : Yes Lisa Haile, LISBETH - 10/03/2018 16:32 EDT documented in this encounter Plan of Treatment Not on file documented as of this encounter Visit Diagnoses Not on filedocumented in this encounter Care Teams Specialty Trimmer Relationship Specialty Start Date End Date Juan José Kendall MD [address] [place] [address] [place] [address] PCP - General Family Medicine 12/25/22 Juan José Kendall MD [address] [place] [address] [place] [address] Referring Physician Family Medicine 12/25/22 documented as of this encounter
--- OUTSIDE RECORDS SUMMARY | 2025-02-22 09:56 | XMS_ITS | Encounter Summary ---
Author Organization [employer] ([place], [place], [place], [place], [place]) Address [address] [place] [address] Care Team Providers Care Fire Control Technician Name Role Phone Juan José Kendall MD Primary Care Provider +- [phone] Juan José Kendall MD Unavailable +[phone] Encounter Details Date Type Department Care Team (Late st Contact Info) Description 09/09/2018 Transcribed Document [facility] [place] [address] [place] [address] ProviderLaurie MD [address] [place] [address] Social History Tobacco Use Types Packs/Day Years [...] in this encounter Care Teams Fire Control Technician Relationship Specialty Start Date End Date Juan José Kendall MD [address] [facility] [address] [place] [address] PCP - General Family Medicine 12/25/22 Juan José Kendall MD [address] [facility] [address] [place] [address] Referring Physician Family Medicine 12/25/22 documented as of this encounter
--- OUTSIDE RECORDS SUMMARY | 2025-02-22 09:56 | XMS_ITS | Encounter Summary ---
Author Organization [employer] ([place], [place], [place], [place], [place]) Address [address] [place] [address] Care Team Providers Care Manufacturing Millwright Name Role Phone Juan José Kendall MD Primary Care Provider +- [phone] Juan José Kendall MD Unavailable [phone] Encounter Details Date Type Department Care Team (Late st Contact Info) Description 06/28/2018 Transcribed Document [facility] [place] Family Medicine [address] [place] [address] ProviderLaurie MD [address] [place] [address] Social History Tobacco Use Types Packs/Day Years Used Date Smoking Tobacco: Never Assessed Comments Unknown Sex and Gender Information Value Date Recorded Sex Assigned at Not on file Legal Sex Female 2:23 PM CDT Gender Identity Not on file Sexual Orientation Not on file documented as of this encounter Miscellaneous Notes * Cerner Conversion Note - Laurie ProviderMD - 06/28/2018 10:32 AM CDT Treatment Intervention, PT Entered On: 06/28/2018 16:11 EDT Performed On: 06/28/2018 14:03 EDT by VINNIE LUI, DIE SET UP WORKER General Information, PT Visit Type, PT : [...] Received Status : Up in chair, Other: NURSE FIRST AID, SCUDS, needs in reach Treatment Start Time : 06/28/2018 13:35 EDT Patient Left Status : Up in chair, Chair alarm activated, RN/PCT informed, All needs met and within reach, Other: SCUDS, son RN/PCT Informed Comment : LISBETH muñoz pt [...] VINNIE LUI PTA - 06/28/2018 15:52 EDT Business Travel Consultant Goals Other PT LTG Grid Goal #1 [...] help at home to perform transfer VINNIE LUI, DIE SET UP WORKER - 06/28/2018 15:52 EDT VINNIE LUI, DIE SET UP WORKER - 06/28/2018 15:52 EDT VINNIE LUI, DIE SET UP WORKER - 06/28/2018 15:52 EDT Treatment Note Subjective [...] for Treatment : Cont POC. VINNIE LUI, DIE SET UP WORKER - 06/28/2018 15:52 EDT Pain Assessment Pain Scaled Used : FACES Pain Score Pre-Intervention : 4 VINNIE LUI, JACOB - 06/28/2018 15:52 EDT Image 1 - Images currently included in the form version of this document have not been included in the text rendition version of the form. [place] PT Charges PT Ther Activities Ea 15 Min : 1 Gait Training Each 15 Min : 1 SANIA, VINNIE R, DIE SET UP WORKER - 06/28/2018 15:52 EDT Electronically signed by Aleks, [facility] Conversion Ship Pilot Dispatcher Cerner at 07/24/2022 3:54 PM CDT documented in this encounter Plan of Treatment Not on file documented as of this encounter Visit Diagnoses Not on filedocumented in this encounter Care Teams Manufacturing Millwright Relationship Specialty Start Date End Date Juan José Kendall MD [address] [facility] [address] [place] [address] PCP - General Family Medicine 12/25/22 Juan José Kendall MD [address] [facility] [address] [place] [id number] Referring Physician Family Medicine 12/25/22 documented as of this encounter
--- OUTSIDE RECORDS SUMMARY | 2025-02-22 09:56 | XMS_ITS | Encounter Summary ---
Author Organization [employer] ([place], [place], [place], [place], [place]) Address [address] [place] [address] Care Team Providers Care Auto Customize Painter Name Role Phone Juan José Kendall MD Primary Care Provider +- [phone] Juan José Kendall MD Unavailable [phone] Encounter Details Date Type Department Care Team (Late st Contact Info) Description 09/20/2018 Transcribed Document [facility] [place] Family Medicine [address] [place] [address] ProviderLaurie MD [address] [place] [address] Social History Tobacco Use Types Packs/Day Years Used Date Smoking Tobacco: Never Assessed Comments Unknown Sex and Gender Information Value Date Recorded Sex Assigned at Not on file Legal Sex Female 2:23 PM CDT Gender Identity Not on file Sexual Orientation Not on file documented as of this encounter Miscellaneous Notes * Cerner Conversion Note - Laurie ProviderMD - 09/20/2018 9:00 AM CDT Pain Assessment Entered On: 09/20/2018 10:30 EDT Performed On: 09/20/2018 10:00 EDT by Renate Wilson RN Intervention Information: acetaminophen Performed by Renate Wilson RN on 09/20/2018 09:00:00 EDT acetaminophen,500mg Oral Pain Assessment Pain Assessment : Follow-up assessment Pain Scale Goal : 3 Pain Scale Used : 0-10 Scale Renate Wislon RN - 09/20/2018 10:30 EDT Pain Scale [...] filedocumented in this encounter Care Teams Auto Customize Painter Relationship Specialty Start Date End Date Juan José Kendall MD [address] [facility] [address] [place] [address] PCP - General Family Medicine 12/25/22 [place] [address] [place] [address] [address] [place] [address] Referring Physician Family Medicine 12/25/22 documented as of this encounter
--- OUTSIDE RECORDS SUMMARY | 2025-02-22 09:56 | XMS_ITS | Encounter Summary ---
Author Organization [employer] ([place], [place], [place], [place], [place]) Address [address] [place] [address] Care Team Providers Care Hotel Custodian Name Role Phone Juan José Kendall MD Primary Care Provider +- [phone] Juan José Kendall MD Unavailable [phone] Encounter Details Date Type Department Care Team (Late st Contact Info) Description 09/09/[address] [facility] [place] Family Medicine [address] [place] [address] ProviderLaurie MD [address] [place] [address] Social History Tobacco Use Types Packs/Day Years [...] BRY BAILEY OTR/Ivan - 09/28/2018 14:49 EDT Snf Goals, OT Grooming LTG Grid Goal #1 Activity : Grooming Assist : Supervision or set up Date to Meet : 10/07/2018 EDT Goal Status : Progressing, continue BRY BAILEY OTR/Ivan - 09/28/2018 14:49 EDT Dressing, Lower Body LTG Grid Goal #1 Activity : Dressing, Lower Body Assist : Assist, minimal Equipment : Long Handled Caretaker Resort, Sock aid, Long handled shoehorn Date to [...] the text rendition version of the form. [place] OT Charges OT Ther Activities Ea 15 Min : 1 BRY BAILEY OTR/Ivan - 09/28/2018 14:49 EDT documented in this encounter Plan of Treatment Not on file documented as of this encounter Visit Diagnoses Not on filedocumented in this encounter Care Teams Hotel Custodian Relationship Specialty Start Date End Date Juan José Kendall MD [address] [facility] [address] [place] [id number] PCP - General Family Medicine 12/25/22 Juan José Kendall MD [address] [facility] [address] [place] [phone] Referring Physician Family Medicine 12/25/22 documented as of this encounter
--- OUTSIDE RECORDS SUMMARY | 2025-02-22 09:56 | XMS_ITS | Encounter Summary ---
Author Organization [employer] ([place], [place], [place], [place], [place]) Address [address] [place] [address] Care Team Providers Care Travel Coordinator Name Role Phone Juan José Kendall MD Primary Care Provider +- [phone] Juan José Kendall MD Unavailable [phone] Encounter Details Date Type Department Care Team (Late st Contact Info) Description 09/20/2018 Transcribed Document [facility] [place] [address] [place] [address] ProviderLaurie MD [address] [place] [address] Social History Tobacco Use Types Packs/Day Years [...] on filedocumented in this encounter Care Teams Travel Coordinator Relationship Specialty Start Date End Date Juan José Kendall MD [address] [facility] [address] [place] [address] PCP - General Family Medicine 12/25/22 Juan José Kendall MD [address] [facility] [address] [place] [address] Referring Physician Family Medicine 12/25/22 documented as of this encounter
--- OUTSIDE RECORDS SUMMARY | 2025-02-22 09:57 | XMS_ITS | Encounter Summary ---
Author Organization [employer] ([place], [place], [place], [place], [place]) Address [address] [place] [address] Care Team Providers Care Perinatal Tech Name Role Phone Juan José Kendall MD Primary Care Provider +- [phone] Juan José Kendall MD Unavailable [phone] Encounter Details Date Type Department Care Team (Late st Contact Info) Description 06/28/2018 Transcribed Document [facility] [place] Family Medicine [address] [place] [address] ProviderLaurie MD [address] [place] [address] Social History Tobacco Use Types Packs/Day Years Used Date Smoking Tobacco: Never Assessed Comments Unknown Sex and Gender Information Value Date Recorded Sex Assigned at Not on file Legal Sex Female 2:23 PM CDT Gender Identity Not on file Sexual Orientation Not on file documented as of this encounter Miscellaneous Notes * Cerner Conversion Note - Laurie Garcia MD - 06/28/2018 10:16 AM CDT Patient: TRUDI [...] on filedocumented in this encounter Care Teams Perinatal Tech Relationship Specialty Start Date End Date Juan José Kendall MD [address] [facility] [address] [place] [address] PCP - General Family Medicine 12/25/22 Juan José Kendall MD [address] [facility] [address] [place] [address] Referring Physician Family Medicine 12/25/22 documented as of this encounter
--- OUTSIDE RECORDS SUMMARY | 2025-02-22 09:57 | XMS_ITS | Encounter Summary ---
Author Organization [employer] ([place], [place], [place], [place], [place]) Address [address] [place] [address] Care Team Providers Care Head Pastry Chef Name Role Phone Juan José Kendall MD Primary Care Provider + [phone] Juan José Kendall MD Unavailable [phone] Encounter Details Date Type Department Care Team (Late st Contact Info) Description 09/09/2018 Transcribed Document [facility] [place] Family Medicine [facility] [place] [address] Laurie Garcia MD [address] [place] [address] Social History Tobacco Use Types Packs/Day Years [...] Guerrero on 06/27/2018. Patient was admitted to [facility] from outside hospital with left prosthetic knee infection . Patient was admitted to local hospital for altered mental status hospital secondary to MRSA bacteremia, hypotension, anemia, bacteriuria and pyuria. Dr. Guerrero, from [facility], the patient to the OR and [...] mL 700 mg 14 mL, IV Piggyback, [id number] docusate sodium 100 mg cap 100 mg 1 Cap, Oral, BID heparin 5,000 units/1 mL inj 5,000 Units 1 mL, SubCutaneous, Q8HInt metoclopramide 10 mg tab 10 mg 1 Tab, Oral, BID metoprolol tartrate 25 mg tab 25 mg 1 Tab, Oral, Daily ondansetron 4 mg/2 mL inj 4 mg 2 mL, IV Push, [id number] pantoprazole EC 40 mg tab 40 mg [...] swelling, No deformity, Normal gait. Integumentary: Warm, [place], Intact, No pallor, No rash, WOUND STABLE. [...] 14.1 % LOW Lymph # 1.00 x10(3)/uL [facility] % 9.6 % HI [facility] # 0.68 K/uL Eos % 6.5 % [...] % LOW Lymph # 1.17 K/uL LOW [facility] % 8.9 % [facility] # 0.63 K/uL Eos % 6.8 % [...] treatment 11-ID consult. Electronically signed by Aleks, [facility] Conversion Screwdown Operator Cerner at 07/24/2022 3:34 PM CDT documented in this encounter Plan of Treatment Not on file documented as of this encounter Visit Diagnoses Not on filedocumented in this encounter Care Teams Head Pastry Chef Relationship Specialty Start Date End Date Juan José Kendall MD [address] [facility] [address] [place] [id number] PCP - General Family Medicine 12/25/22 Juan José Kendall MD [address] [place] [address] [address] [place] [phone] Referring Physician Family Medicine 12/25/22 documented as of this encounter
--- OUTSIDE RECORDS SUMMARY | 2025-02-22 09:57 | XMS_ITS | Encounter Summary ---
Author Organization [employer] ([place], [place], [place], [place], [place]) Address [address] [place] [address] Care Team Providers Care Inspectors And Regulatory Officers Name Role Phone Juan José Kendall MD Primary Care Provider + [phone] Juan José Kendall MD Unavailable [phone] Encounter Details Date Type Department Care Team (Late st Contact Info) Description 09/21/2018 Transcribed Document [facility] [place] [facility] [place] [address] Laurie Garcia MD [address] [place] [address] Social History Tobacco Use Types Packs/Day Years [...] Performed On: 09/21/2018 8:08 EDT by NATALEE DALEY PT Interdisciplinary Rounds Interdisciplinary Rounds Participants : [...] left LE and profound weakness right LE. DALEY, NATALEE, PT - 09/21/2018 8:08 EDT Electronically signed by Aleks, [facility] Conversion Wage Analyst Cerner at 07/24/2022 3:35 PM CDT documented in this encounter Plan of Treatment Not on file documented as of this encounter Visit Diagnoses Not on filedocumented in this encounter Care Teams Inspectors And Regulatory Officers Relationship Specialty Start Date End Date Juan José Kendall MD [address] [facility] [address] [place] [address] PCP - General Family Medicine 12/25/22 Juan José Kendall MD [address] [facility] [address] [place] [address] Referring Physician Family Medicine 12/25/22 documented as of this encounter
--- OUTSIDE RECORDS SUMMARY | 2025-02-22 09:57 | XMS_ITS | Encounter Summary ---
Author Organization [employer] ([place], [place], [place], [place], [place]) Address [address] [place] [address] Care Team Providers Care Cashier Greeter Name Role Phone Juan José Kendall MD Primary Care Provider + [phone] Juan José Kendall MD Unavailable [phone] Encounter Details Date Type Department Care Team (Late st Contact Info) Description 09/09/2018 Transcribed Document [facility] [place] Family Medicine [facility] [place] [address] ProviderLaurie MD [address] [place] [address] Social History Tobacco Use Types Packs/Day Years Used Date Smoking Tobacco: Never Assessed Comments Unknown Sex and Gender Information Value Date Recorded Sex Assigned at Not on file Legal Sex Female 2:23 PM CDT Gender Identity Not on file Sexual Orientation Not on file documented as of this encounter Miscellaneous Notes * Cerner Conversion Note - Laurie ProviderMD - 09/09/2018 2:00 AM CDT Cage Cashier Details Entered On: 09/09/2018 2:26 EDT Performed On: 09/09/2018 2:00 EDT by Linh Honeycutt RN Order Details Transport Mode Order Detail : Bed (including specialty) Isolation Precautions Order Detail : Standard Precautions Order Detail : 0 Nurse Collect Order Detail : 1 Lift/Transfer : Maximal assist Central Line Order Detail : Yes Room Service : Appropriate Linh Honeycutt RN - 09/09/2018 2:25 EDT documented in this encounter Plan of Treatment Not on file documented as of this encounter Visit Diagnoses Not on filedocumented in this encounter Care Teams Cashier Greeter Relationship Specialty Start Date End Date Juan José Kendall MD [address] [facility] [address] [place] [address] PCP - General Family Medicine 12/25/22 Juan José Kendall MD [address] [facility] [address] [place] [address] Referring Physician Family Medicine 12/25/22 documented as of this encounter
--- OUTSIDE RECORDS SUMMARY | 2025-02-22 09:58 | XMS_ITS | Encounter Summary ---
Author Organization [employer] ([place], [place], [place], [place], [place]) Address [address] [place] [address] Care Team Providers Care Ruby On Rails Software Developer Name Role Phone Juan José Kendall MD Primary Care Provider + [phone] Juan José Kendall MD Unavailable [phone] Encounter Details Date Type Department Care Team (Late st Contact Info) Description 10/03/2018 Transcribed Document [facility] [place] [facility] [address] Laurie Garcia MD [address] [place] [address] Social History Tobacco Use Types Packs/Day Years [...] urination. ???Sitting on a wheelchair today ???For residential facility pending insurance approval ???Surgical intervention but Dr. Robles after 2 months ???Prealbumin 10.9 consistent with [...] inj 4 mg 2 mL, IV Push, [id number] pantoprazole EC 40 mg tab 40 mg [...] 18.2 % LOW Lymph # 1.08 x10(3)/uL [place] % 10.5 % [place] # 0.62 K/uL Eos % 6.6 % [...] on filedocumented in this encounter Care Teams Ruby On Rails Software Developer Relationship Specialty Start Date End Date Juan José Kendall MD [address] [place] [address] [place] [address] PCP - General Family Medicine 12/25/22 Juan José Kendall MD [address] [place] [phone] Referring Physician Family Medicine 12/25/22 documented as of this encounter
--- OUTSIDE RECORDS SUMMARY | 2025-02-22 09:58 | XMS_ITS | Encounter Summary ---
Author Organization [employer] ([place], [place], [place], [place], [place]) Address [address] [place] [address] Care Team Providers Care Machine Plate Stacker Name Role Phone Juan José Kendall MD Primary Care Provider + [phone] Juan José Kendall MD Unavailable [phone] Encounter Details Date Type Department Care Team (Late st Contact Info) Description 09/20/2018 Transcribed Document [facility] [place] [address] [place] [address] ProviderLaurie MD [address] [place] [address] Social History Tobacco Use Types Packs/Day Years [...] filedocumented in this encounter Care Teams Machine Plate Stacker Relationship Specialty Start Date End Date Juan José Kendall MD [address] [place] [address] PCP - General Family Medicine 12/25/22 Juan José Kendall MD [address] [place] [phone] Referring Physician Family Medicine 12/25/22 documented as of this encounter
--- OUTSIDE RECORDS SUMMARY | 2025-02-22 09:58 | XMS_ITS | Encounter Summary ---
Author Organization [employer] ([place], [place], [place], [place], [place]) Address [address] [place] [address] Care Team Providers Care Feller Seam Operator Name Role Phone Juan José Kendall MD Primary Care Provider +- [phone] Juan José Kendall MD Unavailable [phone] Encounter Details Date Type Department Care Team (Late st Contact Info) Description 09/09/2018 Transcribed Document [facility] Family Medicine [address] [place] [address] ProviderLaurie MD [address] [place] [address] Social History Tobacco Use Types Packs/Day Years [...] EDT Pain Scale Intensity : 3 Lisa Haile RN - 10/05/2018 19:13 EDT Image 4 - Images currently included in the form version of this document have not been included in the text rendition version of the form. documented in this encounter Plan of Treatment Not on file documented as of this encounter Visit Diagnoses Not on filedocumented in this encounter Care Teams Feller Seam Operator Relationship Specialty Start Date End Date Juan José Kendall MD [address] [facility] [address] [place] [phone] PCP - General Family Medicine 12/25/22 Juan José Kendall MD [address] [facility] [address] [place] [address] Referring Physician Family Medicine 12/25/22 documented as of this encounter
--- OUTSIDE RECORDS SUMMARY | 2025-02-22 09:58 | XMS_ITS | Encounter Summary ---
Author Organization [employer] ([place], [place], [place], [place], [place]) Address [address] [place] [address] Care Team Providers Care Art Professor Name Role Phone Juan José Kendall MD Primary Care Provider + [phone] Juan José Kendall MD Unavailable [phone] Encounter Details Date Type Department Care Team (Late st Contact Info) Description 10/03/2018 Transcribed Document [facility] [place] [address] [place] [address] ProviderLaurie MD [address] [place] [address] Social History Tobacco Use Types Packs/Day Years Used Date Smoking Tobacco: Never Assessed Comments Unknown Sex and Gender Information Value Date Recorded Sex Assigned at Not on file Legal Sex Female 2:23 PM CDT Gender Identity Not on file Sexual Orientation Not on file documented as of this encounter Miscellaneous Notes * Cerner Conversion Note - Laurie ProviderMD - 10/03/2018 3:01 PM CDT Care Management Assessment/Plan Entered On: 10/03/2018 15:02 EDT Performed On: 10/03/2018 15:01 EDT by PJ NELSON Care Management Note Care Management Note : 10/03/2018 Spoke with [facility], they do not have a contract with [facility]. Care Management Note Report : PJ NELSON - 10/03/18 14:57:34 10/03/2018 Call received from [facility], they are unable to offer a bed for this patient. Patient and notified. They request a referral be faxed to [facility] (P: [phone] F: [phone]), faxed per their request. Awaiting a call [...] it be close to her home in [place]. Referrals faxed to Debbie Patricia (Bev liaison), [place], [facility], and [place]. Awaiting a call back. PJ NELSON - 09/28/18 16:26:43 09/28/2018 Fax recieved from [facility] with approval for LTACH services 09/29-10/04. Auth# [id number]. Fax next clinical review to [phone] on 10/05/2018. PJ NELSON - 09/28/18 08:24:24 09/28/2018 Clinical review faxed to [facility] ([phone]) to request coverage for continued LTACH services. Approval pending. Auth# [id number]. PJ NELSON 09/21/18 15:48:14 09/21/2018 Fax recieved from [facility] with approval for LTACH coverage 09/22/2018-09/28/2018. Auth# [id number]. Fax next clinical review to [phone] on 09/28/2018. PJ NELSON 09/21/18 08:22:57 09/21/2018 Clinical review faxed to [facility] ([phone]) to request coverage for continued LTACH services. Approval pending. Auth# [id number]. PJ NELSON - 09/15/18 11:34:17 09/15/2018 Fax recieved from [facility] with approval for LTACH services 09/15-09/21/2018. Auth# [id number]. Fax next clinical review to [phone] on 09/21/2018. PJ NELSON - 09/14/18 08:28:49 09/14/2018 Clinical review faxed to [facility] ([phone]) to request coverage for continued LTACH services. Approval pending. Auth# [id number]. Chuyita Briceno, Clinical Assessment Liaison - 09/09/18 [...] or SNF. She has previously used [facility] and prefers to use them again if needed. The patient owns a shower chair, BSC and w/c. The patient has never needed a dialysis clinic. The patient has not fallen in the past 3 months. PCP- Dr. Ranjeet [facility]- Orthopedic- Dr. Shay Guerrero [facility]- [facility] The patient does wish to return [...] on filedocumented in this encounter Care Teams Art Professor Relationship Specialty Start Date End Date Juan José Kendall MD [address] [facility] [address] [place] [address] PCP - General Family Medicine 12/25/22 Juan José Kendall MD [address] [facility] [address] [place] [address] Referring Physician Family Medicine 12/25/22 documented as of this encounter
--- OUTSIDE RECORDS SUMMARY | 2025-02-22 09:58 | XMS_ITS | Encounter Summary ---
Author Organization [employer] ([place], [place], [place], [place], [place]) Address [address] [place] [address] Care Team Providers Care Corn Cutter Name Role Phone Juan José Kendall MD Primary Care Provider + [phone] Juan José Kendall MD Unavailable [phone] Encounter Details Date Type Department Care Team (Late st Contact Info) Description 09/20/2018 Transcribed Document [facility] Family Medicine [address] [place] [address] ProviderLaurie MD [address] [place] [address] Social History Tobacco Use Types Packs/Day Years [...] filedocumented in this encounter Care Teams Corn Cutter Relationship Specialty Start Date End Date Juan José Kendall MD [address] [place] [address] PCP - General Family Medicine 12/25/22 Juan José Kendall MD [address] [place] [address] [place] [address] Referring Physician Family Medicine 12/25/22 documented as of this encounter
--- OUTSIDE RECORDS SUMMARY | 2025-02-22 09:59 | XMS_ITS | Encounter Summary ---
Author Organization [employer] ([place], [place], [place], [place], [place]) Address [address] [place] [address] Care Team Providers Care Mailing Machine Operator Name Role Phone Juan José Kendall MD Primary Care Provider + [phone] Juan José Kendall MD Unavailable [phone] Encounter Details Date Type Department Care Team (Late st Contact Info) Description 02/02/2019 Transcribed Document [facility] [place] Family Medicine [address] [place] [address] ProviderLaurie MD [address] [place] [address] Social History Tobacco Use Types Packs/Day Years Used Date Smoking Tobacco: Never Assessed Comments Unknown Sex and Gender Information Value Date Recorded Sex Assigned at Not on file Legal Sex Female 2:23 PM CDT Gender Identity Not on file Sexual Orientation Not on file documented as of this encounter Miscellaneous Notes * Cerner Conversion Note - Laurie ProviderMD - 02/02/2019 3:38 [place] [address] BAIRON TRUDI KAY :1955 Visit Time:02/01/2019 Your Visit Summary Your Care Team Admitting Physician - JONG SANTACRUZ MD-JONES ARIAS MD-INT Attending Physician - JONG SANTACRUZ MD-AZIZAT Primary Care Physician - JUAN JOSÉ KENDALL (REF)MD Referring Physician - JONG SANTACRUZ MD-ORT Your Diagnosis Acute blood loss anemiaOn [...] EST Comments Appointment has been made Where: [facility] [address] [place] [address]- Medications What How Much When Instructions Next [...] are sitting or lying down. ??? Take oyww-abz-ubxtemx and prescription medicines only as told by [...] 03/22/2006 Document Revised: 11/24/2016 Document Reviewed: 02/28/2016 [employer] Interactive Patient Education ?? 2019 Feedback. Hand Washing Germs like bacteria, viruses, and [...] ? Using the bathroom. ? Using household medical doctor nuclear medicine or poisonous chemicals. ? Touching or taking [...] 03/04/2009 Document Revised: 08/27/2016 Document Reviewed: 08/17/2014 [employer] Interactive Patient Education ?? 2018 Feedback. acetaminophen and oxycodone (a SEET a MIN [...] may report side effects to FDA at 6-374-IWJ-4694. What other drugs will affect acetaminophen and [...] affect acetaminophen and oxycodone, including prescription and wjaf-smv-ahwaexh medicines, vitamins, and herbal products. Not all [...] to ensure that the information provided by [employer]. ('[employer]') is accurate, up-to-date, and complete, but no guarantee is made to that effect. Drug information contained herein may be time sensitive. [employer] information has been compiled for use by healthcare practitioners and consumers in the [place] and therefore [employer] does not warrant that uses outside of the [place] are appropriate, unless specifically indicated otherwise. [employer] drug information does not endorse drugs, diagnose patients or recommend therapy. [employer] drug information is an informational resource designed [...] effective or appropriate for any given patient. [employer] does not assume any responsibility for any aspect of healthcare administered with the aid of information [employer] provides. The information contained herein is not intended to cover all possible uses, directions, precautions, warnings, drug interactions, allergic reactions, or adverse effects. If you have questions about the drugs you are taking, check with your doctor, nurse or pharmacist. Copyright 4645-1876 [employer]. Version: 18.02. Revision Date: 03/02/2018. rivaroxaban (FARZAD [...] may report side effects to FDA at 7-061-GQO-5679. What other drugs will affect rivaroxaban? Sometimes it is not safe to use certain medications at the same time. Some drugs can affect your blood levels of other drugs you take, which may increase side effects or make the medications less effective. Other drugs may affect rivaroxaban, including prescription and hjta-wtm-wwswlzo medicines, vitamins, and herbal products. Tell your [...] to ensure that the information provided by [employer]. ('[employer]') is accurate, up-to-date, and complete, but no guarantee is made to that effect. Drug information contained herein may be time sensitive. [employer] information has been compiled for use by healthcare practitioners and consumers in the [place] and therefore [employer] does not warrant that uses outside of the [place] are appropriate, unless specifically indicated otherwise. [employer] drug information does not endorse drugs, diagnose patients or recommend therapy. [employer] drug information is an informational resource designed [...] effective or appropriate for any given patient. [employer] does not assume any responsibility for any aspect of healthcare administered with the aid of information [employer] provides. The information contained herein is not intended to cover all possible uses, directions, precautions, warnings, drug interactions, allergic reactions, or adverse effects. If you have questions about the drugs you are taking, check with your doctor, nurse or pharmacist. Copyright 2275-2625 [employer]. Version: 6.02. Revision Date: 07/21/2018. aspirin (oral) [...] What is aspirin? Aspirin is a salicylate (ns-QRX-dz-ate). It works by reducing substances in the [...] may report side effects to FDA at 4-112-SKG-4065. What other drugs will affect aspirin? Ask [...] drugs may affect aspirin, including prescription and guhd-ksc-ndhihfw medicines, vitamins, and herbal products. Not all [...] to ensure that the information provided by [employer]. ('[employer]') is accurate, up-to-date, and complete, but no guarantee is made to that effect. Drug information contained herein may be time sensitive. [employer] information has been compiled for use by healthcare practitioners and consumers in the [place] and therefore [employer] does not warrant that uses outside of the [place] are appropriate, unless specifically indicated otherwise. [employer] drug information does not endorse drugs, diagnose patients or recommend therapy. [employer] drug information is an informational resource designed [...] effective or appropriate for any given patient. [employer] does not assume any responsibility for any aspect of healthcare administered with the aid of information [employer] provides. The information contained herein is not intended to cover all possible uses, directions, precautions, warnings, drug interactions, allergic reactions, or adverse effects. If you have questions about the drugs you are taking, check with your doctor, nurse or pharmacist. Copyright 3710-1381 [employer]. Version: 15.02. Revision Date: 07/05/2017. Emergency Awareness [...] Assistance with quitting is available by contacting 6-628-AYJC-NOW. This is a free resource providing counseling, [...] range between ( 1.0 and 7.0 ) [place] #: 1.20 K/uL -- Normal range between ( 0.24 and 0.82 ) Eos #: 0.08 K/uL -- Normal range between ( 0.04 and 0.54 ) [place] %: 14.4 % -- Normal range between [...] was given the opportunity to ask questions. Patient/Apartment Hotel Manager Name: Patient/Apartment Hotel Manager Signature: Relationship to Patient: Clinician/Hospital Apartment Hotel Manager Signature: Date: Electronically signed by Aleks, [facility] Conversion Residential Real Estate Appraiser Cerner at 07/24/2022 3:45 PM CDT documented [...]
--- OUTSIDE RECORDS SUMMARY | 2025-02-22 09:59 | XMS_ITS | Encounter Summary ---
Author Organization [employer] ([place], [place], [place], [place], [place]) Address [address] [place] [address] Care Team Providers Care Bartenders Name Role Phone Juan José Kendall MD Primary Care Provider + [phone] Juan José Kendall MD Unavailable [phone] Encounter Details Date Type Department Care Team (Late st Contact Info) Description 09/08/2018 Transcribed Document [facility] [place] [facility] [place] [address] [place] [address] ProviderLaurie MD [address] [place] [address] Social History Tobacco Use Types Packs/Day Years [...] on filedocumented in this encounter Care Teams Bartenders Relationship Specialty Start Date End Date Juan José Kendall MD [address] [place] [address] [place] [address] PCP - General Family Medicine 12/25/22 Juan José Kendall MD [address] [place] [address] [place] [address] Referring Physician Family Medicine 12/25/22 documented as of this encounter
--- OUTSIDE RECORDS SUMMARY | 2025-02-22 09:59 | XMS_ITS | Encounter Summary ---
Author Organization [employer] ([place], [place], [place], [place], [place]) Address [address] [place] [address] Care Team Providers Care Cream Separator Operator Name Role Phone Juan José Kendall MD Primary Care Provider +- [phone] Juan José Kendall MD Unavailable [phone] Encounter Details Date Type Department Care Team (Late st Contact Info) Description 10/03/2018 Transcribed Document [facility] [place] [address] [place] [address] ProviderLaurie MD [address] [place] [address] Social History Tobacco Use Types Packs/Day Years Used Date Smoking Tobacco: Never Assessed Comments Unknown Sex and Gender Information Value Date Recorded Sex Assigned at Not on file Legal Sex Female 2:23 PM CDT Gender Identity Not on file Sexual Orientation Not on file documented as of this encounter Miscellaneous Notes * Cerner Conversion Note - Laurie ProviderMD - 10/03/2018 2:00 AM CDT Primer Charger Details Entered On: 10/03/2018 0:35 EDT Performed [...] Service : Appropriate Arterial Line : No FRACNISCO MOREJON RN - 10/03/2018 0:34 EDT Electronically signed by Aleks [facility] Conversion Papeterie Table Assembler Cerner at 07/24/2022 3:46 PM CDT documented in this encounter Plan of Treatment Not on file documented as of this encounter Visit Diagnoses Not on filedocumented in this encounter Care Teams Cream Separator Operator Relationship Specialty Start Date End Date Juan José Kendall MD [address] [facility] [address] [place] [address] PCP - General Family Medicine 12/25/22 Juan José Kendall MD [address] [facility] [address] [place] [address] Referring Physician Family Medicine 12/25/22 documented as of this encounter
--- OUTSIDE RECORDS SUMMARY | 2025-02-22 09:59 | XMS_ITS | Encounter Summary ---
Author Organization [employer] ([place], [place], [place], [place], [place]) Address [address] [place] [address] Care Team Providers Care Box Fabricator Name Role Phone Juan José Kendall MD Primary Care Provider + [phone] Juan José Kendall MD Unavailable [phone] Encounter Details Date Type Department Care Team (Late st Contact Info) Description 09/20/2018 Transcribed Document [facility] [place] [facility] [place] [address] Laurie Garcia MD [address] [place] [address] Social History Tobacco Use Types Packs/Day Years [...] inj 4 mg 2 mL, IV Push, [id number] pantoprazole EC 40 mg tab 40 mg [...] Water 250 mL 1,000 mg, IV Piggyback, [id number] Continuous: (0) PRN: (21) acetaminophen 325 mg [...] % 19.9 % Lymph # 1.14 x10(3)/uL [place] % 10.3 % HI [place] # 0.59 K/uL Eos % 5.8 % [...] filedocumented in this encounter Care Teams Box Fabricator Relationship Specialty Start Date End Date Juan José Kendall MD [address] [place] [facility] [address] [place] [address] PCP - General Family Medicine 12/25/22 Juan José Kendall MD [address] [place] [address] Referring Physician Family Medicine 12/25/22 documented as of this encounter
--- OUTSIDE RECORDS SUMMARY | 2025-02-22 09:59 | XMS_ITS | Encounter Summary ---
Author Organization [employer] ([place], [place], [place], [place], [place]) Address [address] [place] [address] Care Team Providers Care Dev Ops Engineer Name Role Phone Juan José Kendall MD Primary Care Provider +- [phone] Juan José Kendall MD Unavailable [phone] Encounter Details Date Type Department Care Team (Late st Contact Info) Description 08/30/2018 Transcribed Document [facility] [place] [address] [place] [address] Laurie Garcia MD [address] [place] [address] Social History Tobacco Use Types Packs/Day Years Used Date Smoking Tobacco: Never Assessed Comments Unknown Sex and Gender Information Value Date Recorded Sex Assigned at Not on file Legal Sex Female 2:23 PM CDT Gender Identity Not on file Sexual Orientation Not on file documented as of this encounter Miscellaneous Notes * Cerner Conversion Note - Laurie Garcia MD - 08/30/2018 3:41 PM CDT Pain Assessment Entered On: 09/05/2018 19:20 EDT Performed On: 09/05/2018 9:50 EDT by Jennifer Arndt Registered Nurse Intervention Information: acetaminophen-HYDROcodone Performed by Jennifer Arndt, Registered Nurse on 09/05/2018 08:50:00 EDT acetaminophen-HYDROcodone,2Tab Oral,Pain (Severe 7-10) Pain Assessment Pain Assessment : Follow-up assessment Pain Scale Goal : 3 Pain Scale Used : 0-10 Scale Pain Intervention, Drug : Medicated Pain Improved by Intervention : Yes Jennifer Arndt, Registered Nurse - 09/05/2018 19:20 EDT Pain Scale Intensity : 4 Jennifre Arndt, Registered Nurse - 09/05/2018 19:20 EDT Image 4 - Images currently included in the form version of this document have not been included in the text rendition version of the form. Electronically signed by Aleks, [facility] Conversion Industrial Furnace Fabricator Cerner at 07/24/2022 3:59 PM CDT documented in this encounter Plan of Treatment Not on file documented as of this encounter Visit Diagnoses Not on filedocumented in this encounter Care Teams Dev Ops Engineer Relationship Specialty Start Date End Date Juan José Kendall MD [address] [facility] [address] [place] [address] PCP - General Family Medicine 12/25/22 Juan José Kendall MD [address] [facility] [address] [place] [address] Referring Physician Family Medicine 12/25/22 documented as of this encounter
--- OUTSIDE RECORDS SUMMARY | 2025-02-22 09:59 | XMS_ITS | Encounter Summary ---
Author Organization [employer] ([place], [place], [place], [place], [place]) Address [address] [place] [address] Care Team Providers Care Information Engineer Name Role Phone Juan José Kendall MD Primary Care Provider +- [phone] Juan José Kendall MD Unavailable [phone] Encounter Details Date Type Department Care Team (Late st Contact Info) Description 10/03/2018 Transcribed Document [facility] [place] [address] [place] [address] ProviderLaurie MD [address] [place] [address] Social History Tobacco Use Types Packs/Day Years [...] on filedocumented in this encounter Care Teams Information Engineer Relationship Specialty Start Date End Date [...]
--- OUTSIDE RECORDS SUMMARY | 2025-02-22 09:59 | XMS_ITS | Encounter Summary ---
Author Organization [employer] ([place], [place], [place], [place], [place]) Address [address] [place] [address] Care Team Providers Care Pediatric Occupational Therapist Name Role Phone Juan José Kendall MD Primary Care Provider +- [phone] Juan José Kendall MD Unavailable [phone] Encounter Details Date Type Department Care Team (Late st Contact Info) Description 10/03/2018 Transcribed Document [facility] [place] Family Medicine [address] [place] [address] ProviderLaurie MD [address] [place] [address] Social History Tobacco Use Types Packs/Day Years [...] RN Interdisciplinary Rounds Interdisciplinary Rounds Participants : human resources safety manager, Pharmacist [place] [facility] - 10/04/2018 10:10 EDT Rounds Participants Comment : Meeting scheduled for 10/05/2018 BARRIERS TO DISCHARGE MAMTA CHARLES RN - 10/03/2018 12:28 EDT Progress Toward Discharge : Physical therapy Occupational therapy Wound Care Knee left midline - stapled, island border dressing Heel left posterior - honey-based dressing bilateral medial upper thighs - left open to air Pharmacy IV vancomycin to stop 10/05, course completed. Dietary BETHANY [place] [facility] - 10/04/2018 10:10 EDT Notes to Care Team : Physician Notes Critical Pathway Name : Current DRG 560 LOS 19.5-23.4 anticipated discharge date 09/30/2018 MAMTA CHARLES, RN - 10/03/2018 12:28 EDT Electronically signed by [facility], [facility] Conversion Beta Tester Cerner at 07/24/2022 3:41 PM CDT documented in this encounter Plan of Treatment Not on file documented as of this encounter Visit Diagnoses Not on filedocumented in this encounter Care Teams Pediatric Occupational Therapist Relationship Specialty Start Date End Date Juan José Kendall MD [address] [facility] [address] [place] [address] PCP - General Family Medicine 12/25/22 Juan José Kendall MD [address] [facility] [address] [place] [address] Referring Physician Family Medicine 12/25/22 documented as of this encounter
--- OUTSIDE RECORDS SUMMARY | 2025-02-22 09:59 | XMS_ITS | Encounter Summary ---
Author Organization [employer] ([place], [place], [place], [place], [place]) Address [address] [place] [address] Care Team Providers Care Cream Hauler Name Role Phone Juan José Kendall MD Primary Care Provider + [phone] Juan José Kendall MD Unavailable [phone] Encounter Details Date Type Department Care Team (Late st Contact Info) Description 02/02/2019 Transcribed Document [facility] [place] [address] [place] [address] Laurie Garcia MD [address] [place] [address] Social History Tobacco Use Types Packs/Day Years [...] Explanation Teaching Evaluation : Verbalizes understanding Deborah Martinez, LISBETH - 02/02/2019 15:28 EDT Electronically signed by Aleks [facility] Conversion Academic Advising Director Cerner at 07/24/2022 3:42 PM CDT documented in this encounter Plan of Treatment Not on file documented as of this encounter Visit Diagnoses Not on filedocumented in this encounter Care Teams Cream Hauler Relationship Specialty Start Date End Date Juan José Kendall MD [address] [facility] [address] [place] [address] PCP - General Family Medicine 12/25/22 Juan José Kendall MD [address] [facility] [address] [place] [address] Referring Physician Family Medicine 12/25/22 documented as of this encounter
--- OUTSIDE RECORDS SUMMARY | 2025-02-22 09:59 | XMS_ITS | Encounter Summary ---
Author Organization [employer] ([place], [place], [place], [place], [place]) Address [address] [place] [address] Care Team Providers Care Cellophane Casting Machine Repairer Name Role Phone Juan José Kendall MD Primary Care Provider +- [phone] Juan José Kendall MD Unavailable [phone] Encounter Details Date Type Department Care Team (Late st Contact Info) Description 06/28/2018 Transcribed Document [facility] [place] [address] [place] [address] ProviderLaurie MD [address] [place] [address] Social History Tobacco Use Types Packs/Day Years [...] on filedocumented in this encounter Care Teams Cellophane Casting Machine Repairer Relationship Specialty Start [place] [address] [place] [address] [address] [place] [address] PCP - General Family Medicine 12/25/22 [place] [address] [place] [address] [address] [place] [address] Referring Physician Family Medicine 12/25/22 documented as of this encounter
--- OUTSIDE RECORDS SUMMARY | 2025-02-22 09:59 | XMS_ITS | Encounter Summary ---
Author Organization [employer] ([place], [place], [place], [place], [place]) Address [address] [place] [address] Care Team Providers Care Photovoltaic Solar Cell Designer Name Role Phone Juan José Kendall MD Primary Care Provider + [phone] Juan José Kendall MD Unavailable [phone] Encounter Details Date Type Department Care Team (Late st Contact Info) Description 09/08/2018 Transcribed Document [facility] [place] Family [place] [address] [place] [address] Laurie Garcia MD [address] [place] [address] Social History Tobacco Use Types Packs/Day Years Used Date Smoking Tobacco: Never Assessed Comments Unknown Sex and Gender Information Value Date Recorded Sex Assigned at Not on file Legal Sex Female 2:23 PM CDT Gender Identity Not on file Sexual Orientation Not on file documented as of this encounter Miscellaneous Notes * Cerner Conversion Note - Laurie Garcia MD - 09/08/2018 4:13 PM CDT Patient Education [...] Barley. [place] wheat. Millet. Bran muffins. Popcorn. [place] wafer crackers. ?? Vegetables Sweet potatoes. Spinach. Kale. Artichokes. Cabbage. Broccoli. Green peas. Carrots. Squash. ?? Fruits Berries. Pears. Apples. Oranges. Avocados. Prunes and raisins. Dried figs. ?? Meats and Other Protein Sources [place], kidney, saxena, and soy beans. Split peas. [...] henry has 11 g of protein. ?? [place] seeds - 1 oz has 5.5 g [...] floor. ?? Place frequently used items in hxad-kx-qasip places ?? Keep electrical cables out of [...] ? Using the bathroom. ? Using household furniture delivery driver or toxic chemicals. ? Touching or taking [...] on filedocumented in this encounter Care Teams Photovoltaic Solar Cell Designer Relationship Specialty Start Date End Date Juan José Kendall MD [address] [facility] [address] [place] [address] PCP - General Family Medicine 12/25/22 Juan José Kendall MD [address] [facility] [address] [place] [address] Referring Physician Family Medicine 12/25/22 documented as of this encounter
--- OUTSIDE RECORDS SUMMARY | 2025-02-22 09:59 | XMS_ITS | Encounter Summary ---
Author Organization [employer] ([place], [place], [place], [place], [place]) Address [address] [place] [address] Care Team Providers Care Seasonal Package Handler Name Role Phone Juan José Kendall MD Primary Care Provider +- [phone] Juan José Kendall MD Unavailable [phone] Encounter Details Date Type Department Care Team (Late st Contact Info) Description 09/20/2018 Transcribed Document [facility] [place] [address] [place] [address] ProviderLaurie MD [address] [place] [address] Social History Tobacco Use Types Packs/Day Years Used Date Smoking Tobacco: Never Assessed Comments Unknown Sex and Gender Information Value Date Recorded Sex Assigned at Not on file Legal Sex Female 2:23 PM CDT Gender Identity Not on file Sexual Orientation Not on file documented as of this encounter Miscellaneous Notes * Cerner Conversion Note - Laurie ProviderMD - 09/20/2018 3:00 PM CDT Pain [...] on filedocumented in this encounter Care Teams Seasonal Package Handler Relationship Specialty Start Date End Date Juan José Kendall MD [address] [place] [address] [address] [place] [address] PCP - General Family Medicine 12/25/22 uJan José Kendall MD [address] [place] [address] [address] [place] [phone] Referring Physician Family Medicine 12/25/22 documented as of this encounter
--- OUTSIDE RECORDS SUMMARY | 2025-02-22 09:59 | XMS_ITS | Encounter Summary ---
Author Organization [employer] ([place], [place], [place], [place], [place]) Address [address] [place] [address] Care Team Providers Care Fur Floor Worker Name Role Phone Juan José Kendall MD Primary Care Provider + [phone] Juan José Kendall MD Unavailable [phone] Encounter Details Date Type Department Care Team (Late st Contact Info) Description 09/20/2018 Transcribed Document [facility] [place] Family Medicine [address] [place] [address] ProviderLaurie MD [address] [place] [address] Social History Tobacco Use Types Packs/Day Years [...] on filedocumented in this encounter Care Teams Fur Floor Worker Relationship Specialty Start Date End Date Juan José Kendall MD [address] [place] [address] PCP - General Family Medicine 12/25/22 Juan José Kendall MD [address] [place] [address] [place] [address] Referring Physician Family Medicine 12/25/22 documented as of this encounter
--- OUTSIDE RECORDS SUMMARY | 2025-02-22 10:00 | XMS_ITS | Encounter Summary ---
Author Organization [employer] ([place], [place], [place], [place], [place]) Address [address] [place] [address] Care Team Providers Care County Supervisor Name Role Phone Juan José Kendall MD Primary Care Provider +- [phone] Juan José Kendall MD Unavailable [phone] Encounter Details Date Type Department Care Team (Late st Contact Info) Description 06/28/2018 Transcribed Document [facility] [place] [facility] [place] [address] ProviderLaurie MD [address] [place] [address] Social History Tobacco Use Types Packs/Day Years Used Date Smoking Tobacco: Never Assessed Comments Unknown Sex and Gender Information Value Date Recorded Sex Assigned at Not on file Legal Sex Female 2:23 PM CDT Gender Identity Not on file Sexual Orientation Not on file documented as of this encounter Miscellaneous Notes * Cerner Conversion Note - Laurie Garcia MD - 06/28/2018 2:58 PM CDT Nursing Discharge Summary Entered On: 06/28/2018 14:59 EDT Performed On: 06/28/2018 14:58 EDT by Alexandria Dalton RN Discharge Documentation Patient Disposition, General : [...] materials Teaching Evaluation : Verbalizes understanding Alexandria Dalton, RN - 06/28/2018 14:58 EDT Electronically signed by Aleks, [facility] Conversion Ladle Repairman Cerner at 07/24/2022 3:37 PM CDT documented in this encounter Plan of Treatment Not on file documented as of this encounter Visit Diagnoses Not on filedocumented in this encounter Care Teams County Supervisor Relationship Specialty Start Date End Date Juan José Kendall MD [address] [facility] [address] [place] [address] PCP - General Family Medicine 12/25/22 Juan José Kendall MD [address] [place] [facility] [address] [place] [address] Referring Physician Family Medicine 12/25/22 documented as of this encounter
--- OUTSIDE RECORDS SUMMARY | 2025-02-22 10:00 | XMS_ITS | Encounter Summary ---
Author Organization [employer] ([place], [place], [place], [place], [place]) Address [address] [place] [address] Care Team Providers Care Lead Ingot Molder Name Role Phone Juan José Kendall MD Primary Care Provider + [phone] Juan José Kendall MD Unavailable [phone] Encounter Details Date Type Department Care Team (Late st Contact Info) Description 02/02/2019 Transcribed Document [facility] [place] [facility] [place] [address] Laurie Garcia MD [address] [place] [address] Social History Tobacco Use Types Packs/Day Years [...] Topical, Daily phenol 1.4% throat spray 5 Hartman, Oral, Q2H scopolamine 1.5 mg/72 hr patch 1 Patch, TransDermal, Q3Days tapentadol 50 mg tab 100 mg 2 Tab, Oral, Q6H traZODone 50 mg tab 50 mg 1 Tab, Oral, At Bedtime Problem list: Medical At risk for sleep apnea / IMO [id number] / Confirmed Back pain / SNOMED CT 965861285 / Confirmed Stress incontinence / SNOMED CT 830709665 / Confirmed GERD (gastroesophageal reflux disease) / SNOMED CT 6755570361 / Confirmed History of obstructive sleep apnea / IMO [id number] / Confirmed High cholesterol / SNOMED CT 03508377 / Confirmed HTN (hypertension) / SNOMED CT 0080424128 / Confirmed Arthritis / SNOMED CT 9909859040 / Confirmed 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
--- OUTSIDE RECORDS SUMMARY | 2025-02-22 10:00 | XMS_ITS | Encounter Summary ---
Author Organization [employer] ([place], [place], [place], [place], [place]) Address [address] [place] [address] Care Team Providers Care Solvent Plant Treater Name Role Phone Juan José Kendall MD Primary Care Provider +- [phone] Juan José Kendall MD Unavailable [phone] Encounter Details Date Type Department Care Team (Late st Contact Info) Description 10/03/2018 Transcribed Document [facility] [place] [address] [place] [address] ProviderLaurie MD [address] [place] [address] Social History Tobacco Use Types Packs/Day Years [...] EDT Pain Scale Intensity : 0 Lisa Haile, RN - 10/03/2018 17:35 EDT Image 4 - Images currently included in the form version of this document have not been included in the text rendition version of the form. documented in this encounter Plan of Treatment Not on file documented as of this encounter Visit Diagnoses Not on filedocumented in this encounter Care Teams Solvent Plant Treater Relationship Specialty Start Date End Date Juan José Kendall MD [address] [facility] [address] [facility] [place] [address] PCP - General Family Medicine 12/25/22 Juan José Kendall MD [address] [facility] [address] [place] [address] Referring Physician Family Medicine 12/25/22 documented as of this encounter
--- OUTSIDE RECORDS SUMMARY | 2025-02-22 10:00 | XMS_ITS | Encounter Summary ---
Author Organization [employer] ([place], [place], [place], [place], [place]) Address [address] [place] [address] Care Team Providers Care Regulatory Affairs Analyst Name Role Phone Juan José Kendall MD Primary Care Provider +- [phone] Juan José Kendall MD Unavailable [phone] Encounter Details Date Type Department Care Team (Late st Contact Info) Description 09/08/2018 Transcribed Document [facility] [place] [address] [place] [address] ProviderLaurie MD [address] [place] [address] Social History Tobacco Use Types Packs/Day Years Used Date Smoking Tobacco: Never Assessed Comments Unknown Sex and Gender Information Value Date Recorded Sex Assigned at Not on file Legal Sex Female 2:23 PM CDT Gender Identity Not on file Sexual Orientation Not on file documented as of this encounter Miscellaneous Notes * Cerner Conversion Note - Laurie Garcia MD - 09/08/2018 8:46 AM CDT Patient: TRUDI BLAIR Age: 63 years Sex: Female : 1955 Associated Diagnoses: None Author: LINDA MARQUEZ MD-NEP Subjective stable overnight. Objective VS/Measurements Vitals Signs (last 24 hrs) Last Charted Minimum Maximum Temp 98.0 (SEP 08 06:00) 98 (SEP 07 18:22) 98.1 (SEP 07 10:23) Apical HR 68 (EDGARD 05 09:41) 68 (EDGARD 05 09:41) 68 (EDGARD 05 09:41) Mon HR 71 (SEP 06 06:00) 62 (EDGARD 05 14:09) 81 (SEP 05 18:22) Resp Rate 14 (SEP 06 06:00) 14 (SEP 06 06:00) 16 (SEP 05 10:23) SBP H 142 (SEP 08 06:00) 120 (SEP 07 18:22) H 142 (SEP 06 06:00) DBP 66 (SEP 06 06:00) L 49 (SEP 05 18:22) 66 (SEP 06 06:00) MAP 85 (SEP 06 06:00) 73 (SEP 08 02:47) 85 (SEP 08 06:00) SpO2 L [...] 05) L 3.3 (EDGARD 04) L 3.2 (SEP 03) Cl 112 (SEP 06) 111 (SEP 05) 112 (SEP 04) 111 (SEP 03) CO2 28 (SEP 06) 27 (SEP 05) 27 (SEP 04) 23 (SEP 03) BUN H 26 (SEP 06) H 29 (EDGARD 05) H 24 (SEP 04) H 26 (SEP 03) Cr H 1.71 (SEP 06) H 1.76 (SEP 05) H 1.79 (SEP [...] (SEP 05) 12 (SEP 04) 9 (SEP 05) 13 (SEP 04) ALT L 9 (SEP 05) L 11 (SEP 04) L 10 (SEP 03) L 9 (SEP 02) ALK P 60 (SEP 05) 62 (SEP 04) 60 (SEP 03) 57 (SEP 02) T Bili 0.5 (SEP 05) 0.4 (SEP 04) 0.5 (SEP 05) 0.4 (SEP 04) PTN [...] intially elevated to 2.4 on admit from [facility] 0.9 06/2018. pt with multiple admssion to [...] evaluating. getting abx Electronically signed by Aleks, [facility] Conversion Interventional Physiatrist Cerner at 07/24/2022 3:47 PM CDT documented in this encounter Plan of Treatment Not on file documented as of this encounter Visit Diagnoses Not on filedocumented in this encounter Care Teams Regulatory Affairs Analyst Relationship Specialty Start Date End Date Juan José Kendall MD [address] [facility] [address] [place] [address] PCP - General Family Medicine 12/25/22 Juan José Kendall MD [address] [facility] [address] [place] [phone] Referring Physician Family Medicine 12/25/22 documented as of this encounter
--- OUTSIDE RECORDS SUMMARY | 2025-02-22 10:00 | XMS_ITS | Encounter Summary ---
Author Organization [employer] ([place], [place], [place], [place], [place]) Address [address] [place] [address] Care Team Providers Care Admitting Interviewer Name Role Phone Juan José Kendall MD Primary Care Provider + [phone] Juan José Kendall MD Unavailable [phone] Encounter Details Date Type Department Care Team (Late st Contact Info) Description 02/02/2019 Transcribed Document [facility] [place] [address] [place] [address] ProviderLaurie MD [address] [place] [address] Social History Tobacco Use Types Packs/Day Years Used Date Smoking Tobacco: Never Assessed Comments Unknown Sex and Gender Information Value Date Recorded Sex Assigned at Not on file Legal Sex Female 2:23 PM CDT Gender Identity Not on file Sexual Orientation Not on file documented as of this encounter Miscellaneous Notes * Cerner Conversion Note - Laurie Garcia MD - 02/02/2019 2:33 PM CDT REBECCA Entered [...] on filedocumented in this encounter Care Teams Admitting Interviewer Relationship Specialty Start Date End Date Juan José Kendall MD [address] [facility] [address] [place] [address] PCP - General Family Medicine 12/25/22 Juan José Kendall MD [address] [place] [address] Referring Physician Family Medicine 12/25/22 documented as of this encounter
--- OUTSIDE RECORDS SUMMARY | 2025-02-22 10:00 | XMS_ITS | Encounter Summary ---
Author Organization [employer] ([place], [place], [place], [place], [place]) Address [address] [place] [address] Care Team Providers Care Signalling And Communications Engineer Name Role Phone Romulo Kendall MD Primary Care Provider + [phone] Romulo Kendall MD Unavailable [phone] Encounter Details Date Type Department Care Team (Late st Contact Info) Description 09/08/2018 Transcribed Document [facility] [place] [address] [place] [address] ProviderLaurie MD [address] [place], [place] [id number] Social History Tobacco Use Types Packs/Day Years Used Date Smoking Tobacco: Never Assessed Comments Unknown Sex and Gender Information Value Date Recorded Sex Assigned at Not on file Legal Sex Female 2:23 PM CDT Gender Identity Not on file Sexual Orientation Not on file documented as of this encounter Miscellaneous Notes * Cerner Conversion Note - Laurie Garcia MD - 09/08/2018 4:16 [place] [address] TRUDI BLAIR :1955 Visit Time:08/30/2018 Your Visit Summary Your Care Team Admitting Physician - JONES HIDALGO MD-INT Attending Physician - JONES HIDALGO MD-INT Primary Care Physician - ROMULO KENDALL (REF)MD Referring Physician - ROMULO KENDALL (REF), Your Diagnosis PILY (acute kidney injury) Anemia [...] Your Care Team PATIENT WILL DISCHARGE TO [facility] TODAY VIA AMBULANCE AT 4:30, RN PLEASE CALL REPORT TO [phone] Discharge Activity: As per Dr. Santacruz recommendations, Discharge Activity: Other (use Special Instructions) Diet: Discharge Diet: Resume usual diet as tolerated Follow-Up Appointments Follow Up with JONG SANTACRUZ When Within 2 to 3 days Comments Call for follow up appointment Where: [address] [place] [address] [address] FLO[address] [place] [id number]- Business (1) Medications What How Much When [...] instructions 700 mg IV daily Pickup at [facility] HYDROmorphone (HYDROmorphone 1 mg/ mL injectable [...] Oral Two Times A Day Pharmacy Information [facility]: [address] [address] [address] [facility] [address] [place] [phone] Take your medications faithfully. Do NOT skip [...] Barley. Bulgur wheat. Millet. Bran muffins. Popcorn. [place] wafer crackers. ??? Vegetables Sweet potatoes. Spinach. Kale. Artichokes. Cabbage. Broccoli. Green peas. Carrots. Squash. ??? Fruits Berries. Pears. Apples. Oranges. Avocados. Prunes and raisins. Dried figs. ??? Meats and Other Protein Sources [place], kidney, saxena, and soy beans. Split peas. [...] henry has 11 g of protein. ??? [place] seeds ??? 1 oz has 5.5 g [...] floor. ??? Place frequently used items in vruv-sb-zvgny places ??? Keep electrical cables out of [...] ? Using the bathroom. ? Using household cap parts cutter or toxic chemicals. ? Touching or taking [...] Assistance with quitting is available by contacting 0-136-NKKXNOW. This is a free resource providing counseling, support, and referral. Or you may contact your personal physician. [place] Suicide Prevention Lifeline: The National Suicide Prevention [...] Be sure to sign up for the [facility] patient portal, which gives you 26/10 access to your medical information ??? including these discharge instructions ??? using your computer, smartphone, or tablet. Just go to ROLI to get started. Questions? Call . Test [...] range between ( 1.0 and 7.0 ) [place] #: 0.63 K/uL -- Normal range between ( 0.24 and 0.82 ) Eos #: 0.48 K/uL -- Normal range between ( 0.04 and 0.54 ) [place] %: 8.9 % -- Normal range between [...] ) Urine Bilirubin Dipstick: Negative Urine Specific [place]: 1.012 -- Normal range between ( 1.005 [...] Nitrogen Urine Random: 390 mg/dL Sodium Ur [place]ose[place]: 48 mMole/Liter Uric Acid Urine Random: 38 mg/dL Protein Ur [place]: 209 mg/dL General Chemistry 09/08/18 04:37:00 Creatinine [...] Pump/Port: XA CVC Tunneled WO Pump/Port Patient Name:BAIRON TRUDI URMILA I have received and understand this information and was given the opportunity to ask questions. Patient/Rating Specialist Name: Patient/Rating Specialist Signature: Relationship to Patient: Clinician/Hospital Rating Specialist Signature: Date: Electronically signed by Aleks [facility] Conversion Leather Softener Cerner at 07/24/2022 3:49 PM CDT documented in this encounter Plan of Treatment Not on file documented as of this encounter Visit Diagnoses Not on filedocumented in this encounter Care Teams Signalling And Communications Engineer Relationship Specialty Start Date End Date Romulo Kendall MD [address] [facility] [address] [place] [address] PCP - General Family Medicine 12/25/22 Romulo Kendall MD [address] [facility] [address] [place] [phone] Referring Physician Family Medicine 12/25/22 documented as of this encounter
--- OUTSIDE RECORDS SUMMARY | 2025-02-22 10:00 | XMS_ITS | Encounter Summary ---
Author Organization [employer] ([place], [place], [place], [place], [place]) Address [address] [place] [address] Care Team Providers Care Technical Publications Writer Name Role Phone Juan José Kendall MD Primary Care Provider +- [phone] Juan José Kendall MD Unavailable [phone] Encounter Details Date Type Department Care Team (Late st Contact Info) Description 06/28/2018 Transcribed Document [facility] [place] [facility] [place] [address] ProviderLaurie MD [address] [place] [address] Social History Tobacco Use Types Packs/Day Years Used Date Smoking Tobacco: Never Assessed Comments Unknown Sex and Gender Information Value Date Recorded Sex Assigned at Not on file Legal Sex Female 2:23 PM CDT Gender Identity Not on file Sexual Orientation Not on file documented as of this encounter Miscellaneous Notes * Cerner Conversion Note - Laurie ProviderMD - 06/28/2018 4:12 PM CDT Discharge [...] FRANTZ YEUNG, PT - 06/29/2018 16:01 EDT Longterm Goals Other PT LTG Grid [...] at home to perform transfer VINNIE LUI, MCAT TUTOR - 06/29/2018 15:30 EDT VINNIE LUI, MCAT TUTOR - 06/29/2018 15:30 EDT VINNIE LUI, MCAT TUTOR - 06/29/2018 15:30 EDT Electronically signed by Aleks [facility] Conversion Supervisor Modern Languages Cerner at 07/24/2022 3:34 PM CDT documented in this encounter Plan of Treatment Not on file documented as of this encounter Visit Diagnoses Not on filedocumented in this encounter Care Teams Technical Publications Writer Relationship Specialty Start Date End Date Juan José Kendall MD [address] [place] [address] PCP - General Family Medicine 12/25/22 Juan José Kendall MD [address] [place] [address] [place] [address] Referring Physician Family Medicine 12/25/22 documented as of this encounter
--- OUTSIDE RECORDS SUMMARY | 2025-02-22 10:00 | XMS_ITS | Encounter Summary ---
Author Organization [employer] ([place], [place], [place], [place], [place]) Address [address] [place] [address] Care Team Providers Care Brake Press Operator Name Role Phone Juan José Kendall MD Primary Care Provider +- [phone] Juan José Kendall MD Unavailable [phone] Encounter Details Date Type Department Care Team (Late st Contact Info) Description 09/19/2018 Transcribed Document [facility] Family Medicine [address] [place] [address] ProviderLaurie MD [address] [place] [address] Social History Tobacco Use Types Packs/Day Years [...] on filedocumented in this encounter Care Teams Brake Press Operator Relationship Specialty Start Date End Date Juan José Kendall MD [address] [facility] [address] [place] [address] PCP - General Family Medicine 12/25/22 Juan José Kendall MD [address] [facility] [address] [place] [address] Referring Physician Family Medicine 12/25/22 documented as of this encounter
--- OUTSIDE RECORDS SUMMARY | 2025-02-22 10:00 | XMS_ITS | Encounter Summary ---
Author Organization [employer] ([place], [place], [place], [place], [place]) Address [address] [place] [address] Care Team Providers Care V Belt Inspector Name Role Phone Juan José Kendall MD Primary Care Provider + [phone] Juan José Kendall MD Unavailable [phone] Encounter Details Date Type Department Care Team (Late st Contact Info) Description 10/02/2018 Transcribed Document [facility] [place] Family Medicine [address] [place] [address] ProviderLaurie MD [address] [place] [address] Social History Tobacco Use Types Packs/Day Years [...] FRANCISCO MOREJON RN - 10/02/2018 22:03 EDT documented in this encounter Plan of Treatment Not on file documented as of this encounter Visit Diagnoses Not on filedocumented in this encounter Care Teams V Belt Inspector Relationship Specialty Start Date End Date Juan José Kendall MD [address] [place] [address] PCP - General Family Medicine 12/25/22 Juan José Kendall MD [address] [place] [address] Referring Physician Family Medicine 12/25/22 documented as of this encounter
--- OUTSIDE RECORDS SUMMARY | 2025-02-22 10:00 | XMS_ITS | Encounter Summary ---
Author Organization [employer] ([place], [place], [place], [place], [place]) Address [address] [place] [address] Care Team Providers Care Runner Out Name Role Phone Juan José Kendall MD Primary Care Provider +- [phone] Juan José Kendall MD Unavailable [phone] Encounter Details Date Type Department Care Team (Late st Contact Info) Description 02/02/2019 Transcribed Document [facility] [place] Family Medicine [address] [place] [address] ProviderLaurie MD [address] [place] [address] Social History Tobacco Use Types Packs/Day Years Used Date Smoking Tobacco: Never Assessed Comments Unknown Sex and Gender Information Value Date Recorded Sex Assigned at Not on file Legal Sex Female 2:23 PM CDT Gender Identity Not on file Sexual Orientation Not on file documented as of this encounter Miscellaneous Notes * Byron Conversion Note - Laurie Garcia MD - 02/02/2019 2:00 AM CDT Surveillance Operator Details Entered On: 02/02/2019 0:57 EDT Performed [...] 02/02/2019 0:57 EDT Electronically signed by Aleks [facility] Conversion Marketing Operations Analyst Cerner at 07/24/2022 3:58 PM CDT documented in this encounter Plan of Treatment Not on file documented as of this encounter Visit Diagnoses Not on filedocumented in this encounter Care Teams Runner Out Relationship Specialty Start Date End Date Juan José Kendall MD [address] [facility] [address] [place] [address] PCP - General Family Medicine 12/25/22 Juan José Kendall MD [address] [facility] [address] [place] [address] Referring Physician Family Medicine 12/25/22 documented as of this encounter
--- OUTSIDE RECORDS SUMMARY | 2025-02-22 10:00 | XMS_ITS | Encounter Summary ---
Author Organization [employer] ([place], [place], [place], [place], [place]) Address [address] [place] [address] Care Team Providers Care Supervisor Phosphorus Processing Name Role Phone Juan José Kendall MD Primary Care Provider +- [phone] Juan José Kendall MD Unavailable [phone] Encounter Details Date Type Department Care Team (Late st Contact Info) Description 09/19/2018 Transcribed Document [facility] [place] [address] [place] [address] ProviderLaurie MD [address] [place] [address] Social History Tobacco Use Types Packs/Day Years Used Date Smoking Tobacco: Never Assessed Comments Unknown Sex and Gender Information Value Date Recorded Sex Assigned at Not on file Legal Sex Female 2:23 PM CDT Gender Identity Not on file Sexual Orientation Not on file documented as of this encounter Miscellaneous Notes * Cerner Conversion Note - Laurie Garcia MD - 09/19/2018 9:00 PM CDT Pain Assessment Entered On: 09/20/2018 3:46 EDT Performed On: 09/19/2018 21:51 EDT by Linh Honeycutt RN Intervention Information: acetaminophen Performed by Linh Honeycutt RN on 09/19/2018 20:51:00 EDT acetaminophen,500mg Oral Pain Assessment Pain Assessment : Follow-up assessment Pain Scale Goal : 3 Pain Improved by Intervention : Yes Linh Honeycutt RN - 09/20/2018 3:46 EDT Electronically signed by Aleks [facility] Conversion Composing Machine Operator/Tender Cerner at 07/24/2022 3:43 PM CDT documented [...]
--- OUTSIDE RECORDS SUMMARY | 2025-02-22 10:00 | XMS_ITS | Encounter Summary ---
Author Organization [employer] ([place], [place], [place], [place], [place]) Address [address] [place] [address] Care Team Providers Care Classroom Technology Coach Name Role Phone Juan José Kendall MD Primary Care Provider +- [phone] Juan José Kendall MD Unavailable [phone] Encounter Details Date Type Department Care Team (Late st Contact Info) Description 10/02/2018 Transcribed Document [facility] [place] [address] [place] [address] ProviderLaurie MD [address] [place] [address] Social History Tobacco Use Types Packs/Day Years [...] on filedocumented in this encounter Care Teams Classroom Technology Coach Relationship Specialty Start Date End Date [...]
--- OUTSIDE RECORDS SUMMARY | 2025-02-22 10:01 | XMS_ITS | Encounter Summary ---
Author Organization [employer] ([place], [place], [place], [place], [place]) Address [address] [place] [address] Care Team Providers Care Barrel Marker Name Role Phone Juan José Kendall MD Primary Care Provider + [phone] Juan José Kendall MD Unavailable [phone] Encounter Details Date Type Department Care Team (Late st Contact Info) Description 09/19/2018 Transcribed Document [facility] [place] [facility] [address] Laurie Garcia MD [address] [place] [address] Social History Tobacco Use Types Packs/Day Years [...] inj 4 mg 2 mL, IV Push, [id number] pantoprazole EC 40 mg tab 40 mg [...] Water 250 mL 1,000 mg, IV Piggyback, [id number] Continuous: (0) PRN: (21) acetaminophen 325 mg [...] % 19.9 % Lymph # 1.14 x10(3)/uL [place] % 10.3 % HI [place] # 0.59 K/uL Eos % 5.8 % [...] prophylaxis. Electronically signed by Adia Fink Conversion Pupil Personnel Services Director Cerner at 07/24/2022 3:53 PM CDT documented in this encounter Plan of Treatment Not on file documented as of this encounter Visit Diagnoses Not on filedocumented in this encounter Care Teams Barrel Marker Relationship Specialty Start Date End Date Juan José Kendall MD [address] [facility] [address] [place] [address] PCP - General Family Medicine 12/25/22 Juan José Kendall MD [address] [place] [address] Referring Physician Family Medicine 12/25/22 documented as of this encounter
--- OUTSIDE RECORDS SUMMARY | 2025-02-22 10:01 | XMS_ITS | Encounter Summary ---
Author Organization [employer] ([place], [place], [place], [place], [place]) Address [address] [place] [address] Care Team Providers Care Elementary Art Teacher Name Role Phone Romulo Kendall MD Primary Care Provider +- [phone] Romulo Kendall MD Unavailable [phone] Encounter Details Date Type Department Care Team (Late st Contact Info) Description 06/28/2018 Transcribed Document [facility] [place] [facility] [place] [address] [place] [address] ProviderLaurie MD [address] [place] [address] Social History Tobacco Use Types Packs/Day Years Used Date Smoking Tobacco: Never Assessed Comments Unknown Sex and Gender Information Value Date Recorded Sex Assigned at Not on file Legal Sex Female 2:23 PM CDT Gender Identity Not on file Sexual Orientation Not on file documented as of this encounter Miscellaneous Notes * Cerner Conversion Note - Laurie Garcia MD - 06/28/2018 8:02 AM CDT [place] [address] [facility] [place] [address] Patient Copy Patient Information: Name: TRUDI BLAIR Current Date: 06/28/2018 08:02:50 : 1955 Patient [address]: [address] [place] [id number] Patient Attending Physician: JONES HIDALGO MD-INT Primary Care Provider: ROMULO KENDALL MD Primary Care Provider Discharge Diagnosis: Weight on Admission: 265 lb, 0 oz Comment: Follow-up Instructions: With: Address: When: JONG SANTACRUZ [facility], [address] [place] [address] [employer] (1) 1:00 PM Comments: Appointment has been [...] Barley. Bulgur wheat. Millet. Bran muffins. Popcorn. [place] wafer crackers. ?? Vegetables Sweet potatoes. Spinach. Kale. Artichokes. Cabbage. Broccoli. Green peas. Carrots. Squash. ?? Fruits Berries. Pears. Apples. Oranges. Avocados. Prunes and raisins. Dried figs. ?? Meats and Other Protein Sources [place], kidney, saxena, and soy beans. Split peas. [...] henry has 11 g of protein. ?? Lane seeds ??? 1 oz has 5.5 g [...] floor. ?? Place frequently used items in gurc-hj-qvhzm places ?? Keep electrical cables out of [...] ? Using the bathroom. ? Using household automotive sales professional or toxic chemicals. ? Touching or taking [...] may report side effects to FDA at 6-602-GTY-5957. What other drugs will affect acetaminophen and [...] affect acetaminophen and oxycodone, including prescription and gnke-zag-ffjqfys medicines, vitamins, and herbal products. Not all [...] to ensure that the information provided by [employer]. ('[employer]') is accurate, up-to-date, and complete, but no guarantee is made to that effect. Drug information contained herein may be time sensitive. [employer] information has been compiled for use by healthcare practitioners and consumers in the [place] and therefore [employer] does not warrant that uses outside of the [place] are appropriate, unless specifically indicated otherwise. [employer] drug information does not endorse drugs, diagnose patients or recommend therapy. [employer] drug information is an informational resource designed [...] effective or appropriate for any given patient. [employer] does not assume any responsibility for any aspect of healthcare administered with the aid of information [employer] provides. The information contained herein is not intended to cover all possible uses, directions, precautions, warnings, drug interactions, allergic reactions, or adverse effects. If you have questions about the drugs you are taking, check with your doctor, nurse or pharmacist. Copyright 2436-6689 [employer]. Version: 18.02. Revision Date: 03/02/2018. CIGARETTE SMOKING: The facts are clear, cigarette smoking will shorten your life. Smoking can cause many illnesses along the way. As a healthcare provider, we recommend that you stop smoking. Assistance with quitting is available by contacting 3-356-[place]-NOW. This is a free resource providing counseling, [...] Be sure to sign up for the [place] patient portal, which gives you 26/10 access to your medical information ??? including these discharge instructions ??? using your computer, smartphone, or tablet. Just go to [employer] to get started. Questions? Call . [facility] would like to thank you for allowing us to assist you with your healthcare needs. BAIRON Beltran SANDRA K, (or sales training representative) have received the above patient education materials/instructions and have verbalized understanding: Patient Signature _ Date/Time Patient Operations Planner Signature (if needed) Date/Time Clinician/Hospital Operations Planner Signature (if needed) Date/Time Electronically signed by Interface, [facility] Conversion Cartographic Designer Cerner at 07/24/2022 3:33 PM CDT documented in this encounter Plan of Treatment Not on file documented as of this encounter Visit Diagnoses Not on filedocumented in this encounter Care Teams Elementary Art Teacher Relationship Specialty Start Date End Date Romulo Kendall MD [address] [place] [address] PCP - General Family Medicine 12/25/22 Romulo Kendall MD [address] [place] [address] Referring Physician Family Medicine 12/25/22 documented as of this encounter
--- OUTSIDE RECORDS SUMMARY | 2025-02-22 10:01 | XMS_ITS | Encounter Summary ---
Author Organization [employer] ([place], [place], [place], [place], [place]) Address [address] [place] [address] Care Team Providers Care Player Development Executive Name Role Phone Juan José Kendall MD Primary Care Provider +- [phone] Juan José Kendall MD Unavailable [phone] Encounter Details Date Type Department Care Team (Late st Contact Info) Description 09/19/2018 Transcribed Document [facility] [place] [facility] [place] [address] ProviderLaurie MD [address] [place] [address] Social History Tobacco Use Types Packs/Day Years [...] repair. She was more recently admitted to [facility] x2 earlier this month on [...] getting wound care. She was transferred to [facility] today for a higher level of care. [...] HTN Cancer Social History: . lives in [place]. No tobacco, ETOH, or illicit drug use. [...] H 148 (SEP 19 15:00) 136 (SEP 18 23:00) H 148 (SEP 19 15:00) DBP 74 (SEP 19 15:00) L 58 (SEP 18 23:00) 74 (SEP 19 15:00) MAP 76 (EDGARD 16 23:00) 76 (EDGARD 16 23:00) 76 (EDGARD [...] 15) 95 (EDGARD 14) Ca L 8.1 (SEP 17) L 8.0 (SEP 16) L 8.1 (EDGARD 15) L 8.1 (SEP 14) AST 11 [...] on filedocumented in this encounter Care Teams Player Development Executive Relationship Specialty Start Date End Date [...]
--- OUTSIDE RECORDS SUMMARY | 2025-02-22 10:01 | XMS_ITS | Encounter Summary ---
Author Organization [employer] ([place], [place], [place], [place], [place]) Address [address] [place] [address] Care Team Providers Care Tap Out Operator Name Role Phone Juan José Kendall MD Primary Care Provider + [phone] Juan José Kendall MD Unavailable [phone] Encounter Details Date Type Department Care Team (Late st Contact Info) Description 02/02/2019 Transcribed Document [facility] [place] Family [place] [address] [place] [address] ProviderLaurie MD [address] [place] [address] Social History Tobacco Use Types Packs/Day Years Used Date Smoking Tobacco: Never Assessed Comments Unknown Sex and Gender Information Value Date Recorded Sex Assigned at Not on file Legal Sex Female 2:23 PM CDT Gender Identity Not on file Sexual Orientation Not on file documented as of this encounter Miscellaneous Notes * Cerner Conversion Note - Laurie ProviderMD - 02/02/2019 3:29 PM CDT Stroke/Warfarin Instructions Entered On: 02/02/2019 15:29 EDT Performed On: 02/02/2019 15:29 EDT by Deborah Martinez RN Stroke/Warfarin Instructions Stroke/TIA Discharge Ins : N/A Warfarin Discharge Ins : N/A Deborah Martinez RN - 02/02/2019 15:29 EDT documented in this encounter Plan of Treatment Not on file documented as of this encounter Visit Diagnoses Not on filedocumented in this encounter Care Teams Tap Out Operator Relationship Specialty Start Date End Date Juan José Kendall MD [address] [place] [address] PCP - General Family Medicine 12/25/22 Juan José Kendall MD [address] [place] [address] Referring Physician Family Medicine 12/25/22 documented as of this encounter
--- OUTSIDE RECORDS SUMMARY | 2025-02-22 10:01 | XMS_ITS | Encounter Summary ---
Author Organization [employer] ([place], [place], [place], [place], [place]) Address [address] [place] [address] Care Team Providers Care Library Attendant Name Role Phone Juan José Kendall MD Primary Care Provider +- [phone] Juan José Kendall MD Unavailable [phone] Encounter Details Date Type Department Care Team (Late st Contact Info) Description 09/19/2018 Transcribed Document [facility] [place] Family Medicine [address] [place] [address] ProviderLaurie MD [address] [place] [address] Social History Tobacco Use Types Packs/Day Years Used Date Smoking Tobacco: Never Assessed Comments Unknown Sex and Gender Information Value Date Recorded Sex Assigned at Not on file Legal Sex Female 2:23 PM CDT Gender Identity Not on file Sexual Orientation Not on file documented as of this encounter Miscellaneous Notes * Cerner Conversion Note - Laurie ProviderMD - 09/19/2018 9:00 AM CDT Pain [...] 13:31 EDT Pain Scale Intensity : 0 CONOR, ENOCH Finn LPN - 09/19/2018 13:31 EDT Image 4 - Images currently included in the form version of this document have not been included in the text rendition version of the form. documented in this encounter Plan of Treatment Not on file documented as of this encounter Visit Diagnoses Not on filedocumented in this encounter Care Teams Library Attendant Relationship Specialty Start Date End Date Juan José Kendall MD [address] [facility] [address] [place] [id number] PCP - General Family Medicine 12/25/22 Juan José Kendall MD [address] [facility] [address] [place] [phone] Referring Physician Family Medicine 12/25/22 documented as of this encounter
--- OUTSIDE RECORDS SUMMARY | 2025-02-22 10:01 | XMS_ITS | Encounter Summary ---
Author Organization [employer] ([place], [place], [place], [place], [place]) Address [address] [place] [address] Care Team Providers Care Water Ski Assembler Name Role Phone Romulo Kendall MD Primary Care Provider +- [phone] Romulo Kendall MD Unavailable [phone] Encounter Details Date Type Department Care Team (Late st Contact Info) Description 06/28/2018 Transcribed Document [facility] [place] [address] [place] [address] ProviderLaurie MD [address] [place] [address] Social History Tobacco Use Types Packs/Day Years Used Date Smoking Tobacco: Never Assessed Comments Unknown Sex and Gender Information Value Date Recorded Sex Assigned at Not on file Legal Sex Female 2:23 PM CDT Gender Identity Not on file Sexual Orientation Not on file documented as of this encounter Miscellaneous Notes * Cerner Conversion Note - Laurie Garcia MD - 06/28/2018 7:58 AM CDT [place] [address] [facility] [place] [address] Patient Copy Patient Information: Name: TRUDI BLAIR Current Date: 06/28/2018 07:58:09 : 1955 Patient [address]: [address] [place] [id number] Patient Attending Physician: JONES HIDALGO MD-INT Primary Care Provider: ROMULO KENDALL MD Primary Care Provider Discharge Diagnosis: Weight on Admission: 265 lb, 0 oz Comment: Follow-up Instructions: With: Address: When: JONG SANTACRUZ [facility], [address]ND [place] [address] [employer] (1) 1:00 PM Comments: Appointment has been [...] Assistance with quitting is available by contacting 6-586-UVFR-NOW. This is a free resource providing counseling, [...] Be sure to sign up for the [place] patient portal, which gives you 26/10 access to your medical information ??? including these discharge instructions ??? using your computer, smartphone, or tablet. Just go to [employer] to get started. Questions? Call . [facility] would like to thank you for allowing us to assist you with your healthcare needs. BAIRON Beltran SANDRA K, (or guest relations representative) have received the above patient education materials/instructions and have verbalized understanding: Patient Signature _ Date/Time Patient Deputy Probation Officer Signature (if needed) Date/Time Clinician/Hospital Deputy Probation Officer Signature (if needed) Date/Time documented in this encounter Plan of Treatment Not on file documented as of this encounter Visit Diagnoses Not on filedocumented in this encounter Care Teams Water Ski Assembler Relationship Specialty Start Date End Date Romulo Kendall MD [address] [facility] [address] [place] [id number] PCP - General Family Medicine 12/25/22 Romulo Kendall MD [address] [facility] [address] [place] [phone] Referring Physician Family Medicine 12/25/22 documented as of this encounter
--- OUTSIDE RECORDS SUMMARY | 2025-02-22 10:01 | XMS_ITS | Encounter Summary ---
Author Organization [employer] ([place], [place], [place], [place], [place]) Address [address] [place] [address] Care Team Providers Care Dermatologist Name Role Phone Juan José Kendall MD Primary Care Provider + [phone] Juan José Kendall MD Unavailable [phone] Encounter Details Date Type Department Care Team (Late st Contact Info) Description 06/28/2018 Transcribed Document [facility] [place] Family Medicine [address] [place] [address] Laurie Garcia MD [address] [place] [address] Social History Tobacco Use Types Packs/Day Years Used Date Smoking Tobacco: Never Assessed Comments Unknown Sex and Gender Information Value Date Recorded Sex Assigned at Not on file Legal Sex Female 2:23 PM CDT Gender Identity Not on file Sexual Orientation Not on file documented as of this encounter Miscellaneous Notes * Cerner Conversion Note - Laurie Garcia MD - 06/28/2018 2:59 PM CDT Patient Education [...] Barley. Bulgur wheat. Millet. Bran muffins. Popcorn. [place] wafer crackers. ?? Vegetables Sweet potatoes. Spinach. Kale. Artichokes. Cabbage. Broccoli. Green peas. Carrots. Squash. ?? Fruits Berries. Pears. Apples. Oranges. Avocados. Prunes and raisins. Dried figs. ?? Meats and Other Protein Sources [place], kidney, saxena, and soy beans. Split peas. [...] henry has 11 g of protein. ?? [place] seeds ??? 1 oz has 5.5 g [...] floor. ?? Place frequently used items in fnfp-aj-qproj places ?? Keep electrical cables out of [...] ? Using the bathroom. ? Using household pleater or toxic chemicals. ? Touching or taking [...] your foot or ankle. ? Increased pain. Electronically signed by Adia Fink Conversion Petroleum Products District Supervisor Cerner at 07/24/2022 3:33 PM CDT documented in this encounter Plan of Treatment Not on file documented as of this encounter Visit Diagnoses Not on filedocumented in this encounter Care Teams Dermatologist Relationship Specialty Start Date End Date Juan José Kendall MD [address] [facility] [address] [place] [address] PCP - General Family Medicine 12/25/22 Juan José Kendall MD [address] [facility] [address] [place] [phone] Referring Physician Family Medicine 12/25/22 documented as of this encounter
--- OUTSIDE RECORDS SUMMARY | 2025-02-22 10:01 | XMS_ITS | Encounter Summary ---
Author Organization [employer] ([place], [place], [place], [place], [place]) Address [address] [place] [address] Care Team Providers Care Multi Purpose Machine Operator Name Role Phone Juan José Kendall MD Primary Care Provider +- [phone] Juan José Kendall MD Unavailable [phone] Encounter Details Date Type Department Care Team (Late st Contact Info) Description 09/08/2018 Transcribed Document [facility] [place] [address] [place] [address] ProviderLaurie MD [address] [place] [address] Social History Tobacco Use Types Packs/Day Years [...] Linh Honeycutt RN - 09/09/2018 2:03 EDT Electronically signed by Aleks [facility] Conversion Natural Gas Plant Supervisor Cerner at 07/24/2022 3:56 PM CDT documented in this encounter Plan of Treatment Not on file documented as of this encounter Visit Diagnoses Not on filedocumented in this encounter Care Teams Multi Purpose Machine Operator Relationship Specialty Start Date End Date Juan José Kendall MD [address] [facility] [address] [place] [phone] PCP - General Family Medicine 12/25/22 Juan José Kendall MD [address] [facility] [address] [place] [phone] Referring Physician Family Medicine 12/25/22 documented as of this encounter
--- OUTSIDE RECORDS SUMMARY | 2025-02-22 10:01 | XMS_ITS | Encounter Summary ---
Author Organization [employer] ([place], [place], [place], [place], [place]) Address [address] [place] [address] Care Team Providers Care Software Systems Architect Name Role Phone Juan José Kendall MD Primary Care Provider +- [phone] Juan José Kendall MD Unavailable [phone] Encounter Details Date Type Department Care Team (Late st Contact Info) Description 02/02/2019 Transcribed Document [facility] [place] Family Medicine [address] [place] [address] ProviderLaurie MD [address] [place] [address] Social History Tobacco Use Types Packs/Day Years [...] Garcia MD - 02/02/2019 2:00 AM CDT Pain Assessment Entered On: 02/02/2019 4:59 EDT Performed On: 02/02/2019 4:18 EDT by Bell Gutierrez RN Intervention Information: acetaminophen Performed by Lenora Hong RN on 02/02/2019 03:18:00 EDT acetaminophen,500mg Oral Pain Assessment Pain Assessment : Follow-up assessment Pain Scale Goal : 4 Pain Scale Used : 0-10 Scale Pain Improved by Intervention : Yes Bell Gutierrez RN - 02/02/2019 4:59 EDT Pain Scale [...] filedocumented in this encounter Care Teams Software Systems Architect Relationship Specialty Start Date End Date Juan José Kendall MD [address] [facility] [address] [place] [address] PCP - General Family Medicine 12/25/22 Juan José Kendall MD [address] [facility] [address] [place] [address] Referring Physician Family Medicine 12/25/22 documented as of this encounter
--- OUTSIDE RECORDS SUMMARY | 2025-02-22 10:01 | XMS_ITS | Encounter Summary ---
Author Organization [employer] ([place], [place], [place], [place], [place]) Address [address] [place] [address] Care Team Providers Care Power Transformer Assembler Name Role Phone Juan José Kendall MD Primary Care Provider +- [phone] Juan José Kendall MD Unavailable [phone] Encounter Details Date Type Department Care Team (Late st Contact Info) Description 06/28/2018 Transcribed Document [facility] [place] Family Medicine [address] [place] [address] ProviderLaurie MD [address] [place] [address] Social History Tobacco Use Types Packs/Day Years [...] filedocumented in this encounter Care Teams Power Transformer Assembler Relationship Specialty Start [place] [address] [place] [address] [address] [place] [address] PCP - General Family Medicine 12/25/22 [place] [address] [place] [address] [address] [place] [address] Referring Physician Family Medicine 12/25/22 documented as of this encounter
--- OUTSIDE RECORDS SUMMARY | 2025-02-22 10:01 | XMS_ITS | Encounter Summary ---
Author Organization [employer] ([place], [place], [place], [place], [place]) Address [address] [place] [address] Care Team Providers Care Sales Representative Public Utilities Name Role Phone Juan José Kendall MD Primary Care Provider +- [phone] Juan José Kendall MD Unavailable [phone] Encounter Details Date Type Department Care Team (Late st Contact Info) Description 10/02/2018 Transcribed Document [facility] [place] Family Medicine [address] [place] [address] ProviderLaurie MD [address] [place] [address] Social History Tobacco Use Types Packs/Day Years [...] filedocumented in this encounter Care Teams Sales Representative Public Utilities Relationship Specialty Start Date End Date Juan José Kendall MD [address] [facility] [address] [place] [address] PCP - General Family Medicine 12/25/22 Juan José Kendall MD [address] [facility] [address] [place] [address] Referring Physician Family Medicine 12/25/22 documented as of this encounter
--- OUTSIDE RECORDS SUMMARY | 2025-02-22 10:01 | XMS_ITS | Encounter Summary ---
Author Organization [employer] ([place], [place], [place], [place], [place]) Address [address] [place] [address] Care Team Providers Care Pigment Making Supervisor Name Role Phone Juan José Kendall MD Primary Care Provider +- [phone] Juan José Kendall MD Unavailable [phone] Encounter Details Date Type Department Care Team (Late st Contact Info) Description 09/08/2018 Transcribed Document [facility] [place] Family Medicine [facility] [place] [address] ProviderLaurie MD [address] [place] [address] Social History Tobacco Use Types Packs/Day Years [...] Disposition, General : Discharge Discharge To : jail care acute Mode Of Departure, General Discharge : Stretcher Accompanied By, Discharge : clinical science liaison Personal Belongings With Patient : Yes Prescriptions Given to Patient : No Discharge Instructions Reviewed With, Opportunity For Questions Given : Patient Teaching Method : Explanation Teaching Evaluation : Verbalizes understanding Education Comment : verbalizes understanding Fay Cloud, Emeli - 09/08/2018 16:13 EDT Electronically signed by Aleks [facility] Conversion Wireless Team Member Cerner at 07/24/2022 3:46 PM CDT documented in this encounter Plan of Treatment Not on file documented as of this encounter Visit Diagnoses Not on filedocumented in this encounter Care Teams Pigment Making Supervisor Relationship Specialty Start Date End Date Juan José Kendall MD [address] [facility] [address] [place] [address] PCP - General Family Medicine 12/25/22 Juan José Kendall MD [address] [facility] [address] [place] [address] Referring Physician Family Medicine 12/25/22 documented as of this encounter
--- OUTSIDE RECORDS SUMMARY | 2025-02-22 10:01 | XMS_ITS | Encounter Summary ---
Author Organization [employer] ([place], [place], [place], [place], [place]) Address [address] [place] [address] Care Team Providers Care Scene Painter Name Role Phone Juan José Kendall MD Primary Care Provider +- [phone] Juan José Kendall MD Unavailable [phone] Encounter Details Date Type Department Care Team (Late st Contact Info) Description 09/08/2018 Transcribed Document [facility] [place] Family Medicine [address] [place] [address] ProviderLaurie MD [address] [place] [address] Social History Tobacco Use Types Packs/Day Years Used Date Smoking Tobacco: Never Assessed Comments Unknown Sex and Gender Information Value Date Recorded Sex Assigned at Not on file Legal Sex Female 2:23 PM CDT Gender Identity Not on file Sexual Orientation Not on file documented as of this encounter Miscellaneous Notes * Cerner Conversion Note - Laurie ProviderMD - 09/08/2018 8:45 PM CDT Education-(VTE) / (DVT) Entered On: 09/09/2018 0:41 EDT Performed On: 09/08/2018 20:45 EDT by Linh Honeycutt RN Teaching/Learning Assessment Barriers To Learning : None evident Learning Style Preferences Patient : Demonstration, Verbal explanation Learning Style Preferences Family : Demonstration, Verbal explanation Education Comment : 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
--- OUTSIDE RECORDS SUMMARY | 2025-02-22 10:01 | XMS_ITS | Encounter Summary ---
Author Organization [employer] ([place], [place], [place], [place], [place]) Address [address] [place] [address] Care Team Providers Care Watch Dial Stoner Name Role Phone Juan José Kendall MD Primary Care Provider +- [phone] Juan José Kendall MD Unavailable [phone] Encounter Details Date Type Department Care Team (Late st Contact Info) Description 09/08/2018 Transcribed Document [facility] [place] Family Medicine [address] [place] [address] ProviderLaurie MD [address] [place] [address] Social History Tobacco Use Types Packs/Day Years Used Date Smoking Tobacco: Never Assessed Comments Unknown Sex and Gender Information Value Date Recorded Sex Assigned at Not on file Legal Sex Female 2:23 PM CDT Gender Identity Not on file Sexual Orientation Not on file documented as of this encounter Miscellaneous Notes * Cerner Conversion Note - Laurie ProviderMD - 09/08/2018 8:45 PM CDT Evaluation, [...] TKA, Spacer placed. TTWLUZ MARINA Harley KAYLA, OTR/Ivan - 09/09/2018 14:46 EDT General Status Patient Received Status : Supine in bed Treatment Start Time : 09/09/2018 13:15 EDT Patient Left Status : Supine in bed, RN/PCT informed, Family/Visitors at bedside, All needs met and within reach RN/PCT Informed Comment : LISBETH muñoz Treatment End Time : 09/09/2018 13:27 EDT Treatment Time : 12 Minute(s) ROCHELLE RAZA OTR/Ivan - 09/09/2018 14:46 EDT History and Environment, [...] Weight Bearing Order Status : TTWB LLE LUZ MARINASTASROCHELLE, OTR/L - 09/09/2018 14:46 EDT Cognition Assessment, OT Orientation : Oriented x 4 LUZ MARINA ROCHELLE OTR/L - 09/09/2018 14:46 EDT Indication Assessment, OT Occupational Therapy Indicated : Yes Problem List, OT : Impaired, bed mobility, Impaired, activities daily living, Impaired, endurance tolerance, Impaired functional mobility, Impaired, joint mobility, Impaired, muscle tone, Impaired, standing balance, Impaired, strength, Impaired, transfers Potential Barriers, OT : Acuity of illness, Pain Rehabilitation Potential, OT : Guarded RAZASTASROCHELLEDEBO MENDOZA/L - 09/09/2018 14:46 EDT Plan of Care, OT OT Tx Plan/Goals Established w Patient : Yes OT Frequency Rehab : Five days per week OT Duration Rehab : Fourteen days OT Treatments Planned : Activities of daily living, Balance training, Functional mobility training, Safety education, Therapeutic activities, Therapeutic exercises ROCHELLE RAZA OTR/Ivan - 09/09/2018 14:46 EDT Machine Pecan Picker Goals, OT Grooming LTG Grid Goal #1 Activity : Grooming Assist : Supervision or set up Date to Meet : 09/23/2018 EDT Goal Status : Initial goal ROCHELLE RAZA OTR/L - 09/09/2018 14:46 EDT Dressing, Lower Body LTG Grid Goal #1 Activity : Dressing, Lower Body Assist : Assist, minimal Equipment : Long Handled Major Donor Coordinator, Sock aid, Long handled shoehorn Date to Meet : 09/23/2018 EDT Goal Status : Initial goal ROCHELLE RAZA OTR/L - 09/09/2018 14:46 EDT Toilet Transfer LTG Grid Goal #1 Activity : Toilet Transfer, Squat Pivot Sit Assist : Assist, maximal Date to Meet : 09/23/2018 EDT Goal Status : Initial goal ROCHELLE RAZA OTR/L - 09/09/2018 14:46 EDT Bed Mobility/ Bed Transfer LTG Grid Goal #1 Goal #2 Activity : Bed Mobility, Supine to Sit Bed Mobility, Sit to Supine Assist : Assist, moderate Assist, moderate Date to Meet : 09/23/2018 EDT 09/23/2018 EDT Goal Status : Initial goal Initial goal ROCHELLE RAZA OTR/Ivan - 09/09/2018 14:46 EDT ROCHELLE RAZA OTR/L - 09/09/2018 14:46 EDT Other LTG Grid Goal #1 Goal #2 Goal : pt to sit EOB 5 minutes for functional task pt to be independent with B UE HEP for strengthening Date to Meet : 09/23/2018 EDT 09/23/2018 EDT Goal Status : Initial goal Initial goal RAZASTASROCHELLEYULIET MENDOZAR/Ivan - 09/09/2018 14:46 EDT LUZ MARINA YULIET BYRDR/Ivan - 09/09/2018 14:46 EDT Treatment Note Subjective Comment : agreeable Patient's Response to Treatment : pt tolerated fairly Additional Objective Information : Pt refused EOB secondary to dry heaving. Pt UE WFL with fair strength. L LE limited motion in KI. Has wound vac. Assessment : pt limited by pain Plan for Treatment : see poc ROCHELLE RAZA OTR/L - 09/09/2018 14:46 EDT Pain Assessment Pain Scaled Used : 0-10 Pain scale Pain Score During-Intervention : 8 LUZ MARINA DEBO BYRD/Ivan - 09/09/2018 14:46 EDT Image 1 - Images currently included in the form version of this document have not been included in the text rendition version of the form. Anticipated Discharge Needs, OT/PT Anticipated Discharge to : Unit, rehabilitation LUZ MARINA DEBO BYRD/Ivan - 09/09/2018 14:46 EDT [place] OT Charges OT Eval High Complexity : 1 LUZ MARINA YULIET BYRDR/L - 09/09/2018 14:46 EDT documented in this encounter Plan of Treatment Not on file documented as of this encounter Visit Diagnoses Not on filedocumented in this encounter Care Teams Watch Dial Stoner Relationship Specialty Start Date End Date Juan José Kendall MD [address] [facility] [address] [place] [address] PCP - General Family Medicine 12/25/22 Juan José Kendall MD [address] [place] [facility] [address] [place] [address] Referring Physician Family Medicine 12/25/22 documented as of this encounter
--- OUTSIDE RECORDS SUMMARY | 2025-02-22 10:01 | XMS_ITS | Encounter Summary ---
Author Organization [employer] ([place], [place], [place], [place], [place]) Address [address] [place] [address] Care Team Providers Care Bakery Products Checker Name Role Phone Juan José Kendall MD Primary Care Provider +- [phone] Juan José Kendall MD Unavailable [phone] Encounter Details Date Type Department Care Team (Late st Contact Info) Description 09/08/2018 Transcribed Document [facility] [place] Family Medicine [address] [place] [address] ProviderLaurie MD [address] [place] [address] Social History Tobacco Use Types Packs/Day Years [...] EDT by FRANTZ BROWN RN Intervention Information: acetaminophen-HYDROcodone Performed by FRANTZ BROWN RN on 09/09/2018 09:34:00 EDT acetaminophen-HYDROcodone,2Tab Oral,Pain [...] on filedocumented in this encounter Care Teams Bakery Products Checker Relationship Specialty Start Date End Date Juan José Kendall MD [address] [facility] [address] [place] [address] PCP - General Family Medicine 12/25/22 Juan José Kendall MD [address] [facility] [address] [place] [address] Referring Physician Family Medicine 12/25/22 documented as of this encounter
--- OUTSIDE RECORDS SUMMARY | 2025-02-22 10:01 | XMS_ITS | Encounter Summary ---
Author Organization [employer] ([place], [place], [place], [place], [place]) Address [address] [place] [address] Care Team Providers Care Beading Installer Name Role Phone Juan José Kendall MD Primary Care Provider + [phone] Juan José Kendall MD Unavailable [phone] Encounter Details Date Type Department Care Team (Late st Contact Info) Description 10/02/2018 Transcribed Document [facility] [place] Family Medicine [address] [place] [address] ProviderLaurie MD [address] [place] [address] Social History Tobacco Use Types Packs/Day Years Used Date Smoking Tobacco: Never Assessed Comments Unknown Sex and Gender Information Value Date Recorded Sex Assigned at Not on file Legal Sex Female 2:23 PM CDT Gender Identity Not on file Sexual Orientation Not on file documented as of this encounter Miscellaneous Notes * Cerner Conversion Note - Historical ProviderMD - 10/02/2018 5:00 PM CDT Chart Check - Review Order Profile Entered On: 10/02/2018 16:28 EDT Performed On: 10/02/2018 17:00 EDT by ORLY RICHARDS, RN Chart Check Powerplans Initiated/Discontinued as Appropriate : Yes All Active Orders Reviewed : Yes ORLY RICHARDS, RN - 10/02/2018 16:28 EDT documented in this encounter Plan of Treatment Not on file documented as of this encounter Visit Diagnoses Not on filedocumented in this encounter Care Teams Beading Installer Relationship Specialty Start Date End Date Juan José Kendall MD [address] [place] [address] PCP - General Family Medicine 12/25/22 Juan José Kendall MD [address] [place] [address] Referring Physician Family Medicine 12/25/22 documented as of this encounter
--- OUTSIDE RECORDS SUMMARY | 2025-02-22 10:01 | XMS_ITS | Encounter Summary ---
Author Organization [employer] ([place], [place], [place], [place], [place]) Address [address] [place] [address] Care Team Providers Care Digital Strategy Director Name Role Phone Juan José Kendall MD Primary Care Provider +- [phone] Juan José Kendall MD Unavailable [phone] Encounter Details Date Type Department Care Team (Late st Contact Info) Description 09/20/2018 Transcribed Document [facility] [place] Family Medicine [address] [place] [address] Laurie Garcia MD [address] [place] [address] Social History Tobacco Use Types Packs/Day Years Used Date Smoking Tobacco: Never Assessed Comments Unknown Sex and Gender Information Value Date Recorded Sex Assigned at Not on file Legal Sex Female 2:23 PM CDT Gender Identity Not on file Sexual Orientation Not on file documented as of this encounter Miscellaneous Notes * Cerner Conversion Note - Laurie Garcia MD - 09/20/2018 4:26 PM CDT [facility] Inpatient Documentation Entered On: 09/20/2018 16:26 EDT Performed On: 09/20/2018 16:26 EDT by ALEX FREY RN WO Admission [...] Ulcer WOCN Wound Pressure Ulcer Documentation : Uetjhkkix-Imqwyf-Ypll Abnormality: Knee Left Midline on 09/20/2018 10:30 [...] or brown) Bed Color(s): Brown Surrounding Tissue: [place] (Epithelialized) Drainage Amount: None Photographed: Yes Cleansing/Irrigation: [...] filedocumented in this encounter Care Teams Digital Strategy Director Relationship Specialty Start Date End Date Juan José Kendall MD [address] [facility] [address] [place] [address] PCP - General Family Medicine 12/25/22 Juan José Kendall MD [address] [facility] [address] [place] [address] Referring Physician Family Medicine 12/25/22 documented as of this encounter
--- OUTSIDE RECORDS SUMMARY | 2025-02-22 10:01 | XMS_ITS | Encounter Summary ---
Author Organization [employer] ([place], [place], [place], [place], [place]) Address [address] [place] [address] Care Team Providers Care Offset Printing Pressmen Name Role Phone Romulo Kendall MD Primary Care Provider +- [phone] Romulo Kendall MD Unavailable [phone] Encounter Details Date Type Department Care Team (Late st Contact Info) Description 06/28/2018 Transcribed Document [facility] [place] Family Medicine [address] [place] [address] ProviderLaurie MD [address] [place] [address] Social History Tobacco Use Types Packs/Day Years [...] - 06/28/2018 12:19 PM CDT [place] [address] [facility] [place] [address] Patient Copy Patient Information: Name: TRUDI BLAIR Current Date: 06/28/2018 12:19:38 : 1955 Patient Address: [address] [place] [id number] Patient Attending Physician: JONES HIDALGO MD-INT Primary Care Provider: ROMULO KENDALL MD Primary Care Provider Discharge Diagnosis: Weight on Admission: 265 lb, 0 oz Comment: Follow-up Instructions: With: Address: When: JONG SANTACRUZ [facility], [address] [place] [address] [employer] (1) 1:00 PM Comments: Appointment has been [...] Barley. Bulgur wheat. Millet. Bran muffins. Popcorn. [place] wafer crackers. ?? Vegetables Sweet potatoes. Spinach. Kale. Artichokes. Cabbage. Broccoli. Green peas. Carrots. Squash. ?? Fruits Berries. Pears. Apples. Oranges. Avocados. Prunes and raisins. Dried figs. ?? Meats and Other Protein Sources [place], kidney, saxena, and soy beans. Split peas. [...] henry has 11 g of protein. ?? [place] seeds ??? 1 oz has 5.5 g [...] floor. ?? Place frequently used items in uvub-ts-smaiv places ?? Keep electrical cables out of [...] ? Using the bathroom. ? Using household cyber incident responder or toxic chemicals. ? Touching or taking [...] may report side effects to FDA at 7-846-ALH-4174. What other drugs will affect acetaminophen and [...] affect acetaminophen and oxycodone, including prescription and fmex-fwb-vpikdgr medicines, vitamins, and herbal products. Not all [...] to ensure that the information provided by [employer]. ('[employer]') is accurate, up-to-date, and complete, but no guarantee is made to that effect. Drug information contained herein may be time sensitive. [employer] information has been compiled for use by healthcare practitioners and consumers in the [place] and therefore [employer] does not warrant that uses outside of the [place] are appropriate, unless specifically indicated otherwise. [employer] drug information does not endorse drugs, diagnose patients or recommend therapy. [employer] drug information is an informational resource designed [...] effective or appropriate for any given patient. [employer] does not assume any responsibility for any aspect of healthcare administered with the aid of information [employer] provides. The information contained herein is not intended to cover all possible uses, directions, precautions, warnings, drug interactions, allergic reactions, or adverse effects. If you have questions about the drugs you are taking, check with your doctor, nurse or pharmacist. Copyright 4263-0555 [employer]. Version: 18.02. Revision Date: 03/02/2018. CIGARETTE SMOKING: The facts are clear, cigarette smoking will shorten your life. Smoking can cause many illnesses along the way. As a healthcare provider, we recommend that you stop smoking. Assistance with quitting is available by contacting 0-990-JLTR-NOW. This is a free resource providing counseling, [...] Be sure to sign up for the [employer] patient portal, which gives you 26/10 access to your medical information ??? including these discharge instructions ??? using your computer, smartphone, or tablet. Just go to [employer] to get started. Questions? Call . [facility] would like to thank you for allowing us to assist you with your healthcare needs. BAIRON Beltran SANDRA K, (or telephone service representative) have received the above patient education materials/instructions and have verbalized understanding: Patient Signature _ Date/Time Patient Gill Box Fixer Signature (if needed) Date/Time Clinician/Hospital Gill Box Fixer Signature (if needed) Date/Time Electronically signed by Aleks, [facility] Conversion Applications Analyst Cerner at 07/24/2022 3:45 PM CDT documented in this encounter Plan of Treatment Not on file documented as of this encounter Visit Diagnoses Not on filedocumented in this encounter Care Teams Offset Printing Pressmen Relationship Specialty Start Date End Date Romulo Kendall MD [address] [place] [employer] [address] [place] [address] PCP - General Family Medicine 12/25/22 Romulo Kendall MD [address] [place] [facility] [address] [place] [address] Referring Physician Family Medicine 12/25/22 documented as of this encounter
--- OUTSIDE RECORDS SUMMARY | 2025-02-22 10:02 | XMS_ITS | Encounter Summary ---
Author Organization [employer] ([place], [place], [place], [place], [place]) Address [address] [place] [address] Care Team Providers Care C4 Planner Name Role Phone Juan José Kendall MD Primary Care Provider +- [phone] Juan José Kendall MD Unavailable [phone] Encounter Details Date Type Department Care Team (Late st Contact Info) Description 09/19/2018 Transcribed Document [facility] Family Medicine On license of [facility] [place] [address] ProviderLaurie MD [address] [place] [address] Social History Tobacco Use Types Packs/Day Years Used Date Smoking Tobacco: Never Assessed Comments Unknown Sex and Gender Information Value Date Recorded Sex Assigned at Not on file Legal Sex Female 2:23 PM CDT Gender Identity Not on file Sexual Orientation Not on file documented as of this encounter Miscellaneous Notes * Cerner Conversion Note - Historical ProviderMD - 09/19/2018 3:55 PM CDT Patient: TRUID BLAIR Age: 63 years Sex: Female : [...] 26.3 \ Allergies: biaxin I/O: 370 / [id number] Estimated CrCl: 55-60 mL/min Vitals: Vitals Signs (last 24 hrs) Last Charted Minimum Maximum Temp 98.2 (SEP 19 15:00) 97.9 (SEP 18 23:00) 98.0 (SEP 18 16:00) Apical HR 79 (SEP 19 09:16) 79 (SEP 19 09:16) 79 (SEP 19 09:16) Mon HR 74 (SEP 19 15:00) 74 (SEP 16 16:00) 81 (SEP 18 19:00) Resp Rate 16 (SEP 19 15:00) 16 (SEP 16 16:00) 18 (SEP 16 19:00) SBP H 148 (SEP 19 15:00) 136 (SEP 16 23:00) H 152 (SEP 16 16:00) DBP 74 (SEP 17 15:00) L 58 (SEP 18 23:00) 74 [...] consultation, Bethany Mo PharmD Electronically signed by [facility], [facility] Conversion Supervisor Policy Change Clerks Cerner at 07/24/2022 3:46 PM CDT documented in this encounter Plan of Treatment Not on file documented as of this encounter Visit Diagnoses Not on filedocumented in this encounter Care Teams C4 Planner Relationship Specialty Start Date End Date Juan José Kendall MD [address] [facility] [address] [place] [address] PCP - General Family Medicine 12/25/22 Juan José Kendall MD [address] [facility] [address] [place] [address] Referring Physician Family Medicine 12/25/22 documented as of this encounter
--- OUTSIDE RECORDS SUMMARY | 2025-02-22 10:02 | XMS_ITS | Encounter Summary ---
Author Organization [employer] ([place], [place], [place], [place], [place]) Address [address] [place] [address] Care Team Providers Care Metal Work Duct Installer Name Role Phone Juan José Kendall MD Primary Care Provider +- [phone] Juan José Kendall MD Unavailable [phone] Encounter Details Date Type Department Care Team (Late st Contact Info) Description 06/28/2018 Transcribed Document [facility] Family Medicine [address] [place] [address] ProviderLaurie MD [address] [place] [address] Social History Tobacco Use Types Packs/Day Years Used Date Smoking Tobacco: Never Assessed Comments Unknown Sex and Gender Information Value Date Recorded Sex Assigned at Not on file Legal Sex Female 2:23 PM CDT Gender Identity Not on file Sexual Orientation Not on file documented as of this encounter Miscellaneous Notes * Cerner Conversion Note - Historical ProviderMD - 06/28/2018 2:00 AM CDT Power Tool Repair Technician Details Entered On: 06/28/2018 2:16 EDT Performed [...] Steph Avendaño RN - 06/28/2018 2:16 EDT Electronically signed by [facility] Conversion Executive Chairman Cerner at 07/24/2022 3:42 PM CDT documented in this encounter Plan of Treatment Not on file documented as of this encounter Visit Diagnoses Not on filedocumented in this encounter Care Teams Metal Work Duct Installer Relationship Specialty Start Date End Date Juan José Kendall MD [address] [facility] [address] [place] [id number] PCP - General Family Medicine 12/25/22 Juan José Kendall MD [address] [facility] [address] [place] [phone] Referring Physician Family Medicine 12/25/22 documented as of this encounter
--- OUTSIDE RECORDS SUMMARY | 2025-02-22 10:02 | XMS_ITS | Encounter Summary ---
Author Organization [employer] ([place], [place], [place], [place], [place]) Address [address] [place] [address] Care Team Providers Care Hematology Nurse Name Role Phone Juan José Kendall MD Primary Care Provider +- [phone] Juan José Kendall MD Unavailable [phone] Encounter Details Date Type Department Care Team (Late st Contact Info) Description 10/02/2018 Transcribed Document [facility] [place] [facility] [place] [address] ProviderLaurie MD [address] [place] [address] Social History Tobacco Use Types Packs/Day Years Used Date Smoking Tobacco: Never Assessed Comments Unknown Sex and Gender Information Value Date Recorded Sex Assigned at Not on file Legal Sex Female 2:23 PM CDT Gender Identity Not on file Sexual Orientation Not on file documented as of this encounter Miscellaneous Notes * Cerner Conversion Note - Laurie Garcia MD - 10/02/2018 8:19 PM CDT Patient: TRUDI [...] repair. She was more recently admitted to [facility] x2 earlier this month on 08/16 and [...] She was [place] [facility] [place] for a higher [...] the antibiotics without any adverse side effects. [place] removed yesterday at her incision site remains [...] Guerrero would like her to see an medical education specialist at after her discharge from [...] HTN Cancer Social History: . lives in [place]. No tobacco, ETOH, or illicit drug [...] PTN L 5.5 (SEP 29) L 5.3 (SEP 26) L 5.0 (SEP 19) L 5.0 (SEP 16) ALB L 2.3 [...] on filedocumented in this encounter Care Teams Hematology Nurse Relationship Specialty Start Date End Date Juan José Kendall MD [address] [facility] [address] [place] [id number] PCP - General Family Medicine 12/25/22 Juan José Kendall MD [address] [facility] [address] [place] [phone] Referring Physician Family Medicine 12/25/22 documented as of this encounter
--- OUTSIDE RECORDS SUMMARY | 2025-02-22 10:02 | XMS_ITS | Encounter Summary ---
Author Organization [employer] ([place], [place], [place], [place], [place]) Address [address] [place] [address] Care Team Providers Care Gas Or Water Meter Installer Name Role Phone Juan José Kendall MD Primary Care Provider +- [phone] Juan José Kendall MD Unavailable [phone] Encounter Details Date Type Department Care Team (Late st Contact Info) Description 02/02/2019 Transcribed Document [facility] [place] Family Medicine [address] [place] [address] Laurie Garcia MD [address] [place] [address] Social History Tobacco Use Types Packs/Day Years Used Date Smoking Tobacco: Never Assessed Comments Unknown Sex and Gender Information Value Date Recorded Sex Assigned at Not on file Legal Sex Female 2:23 PM CDT Gender Identity Not on file Sexual Orientation Not on file documented as of this encounter Miscellaneous Notes * Cerner Conversion Note - Laurie Garcia MD - 02/02/2019 3:41 PM CDT Discharge Summary, PT Entered On: 02/02/2019 15:43 EDT Performed On: 02/02/2019 15:41 EDT by VINNIE LUI PTA Discharge Summary Reason for Discharge : Discharged from hospital VINNIE LUI PTA - 02/02/2019 15:41 EDT Discharge Summary Comment, PT : Patient will discharge home follow up from [facility] on 02/02/19 having met 0/2 acute [...] LINDA BAUTISTA, PT - 02/04/2019 11:30 EDT Vacuum Tester Cans Goals Other PT LTG Grid Goal #1 Goal #2 Other : Patient will complete bed to chair transfer with RW and CGA/min assist x 1 person. Patient will complete supine to sit with leg career guidance counselor and CGA. Date to Meet : 02/03/2019 EDT 02/03/2019 EDT Goal Status : Progressing, continue Progressing, continue VINNIE LUI, EXECUTIVE SECRETARY - 02/02/2019 15:41 EDT VINNIE LUI, EXECUTIVE SECRETARY - 02/02/2019 15:41 EDT documented in this encounter Plan of Treatment Not on file documented as of this encounter Visit Diagnoses Not on filedocumented in this encounter Care Teams Gas Or Water Meter Installer Relationship Specialty Start Date End Date Juan José Kendall MD [address] [facility] [address] [place] [id number] PCP - General Family Medicine 12/25/22 Juan José Kendall MD [address] [facility] [address] [place] [phone] Referring Physician Family Medicine 12/25/22 documented as of this encounter
--- OUTSIDE RECORDS SUMMARY | 2025-02-22 10:03 | XMS_ITS | Encounter Summary ---
Author Organization [employer] ([place], [place], [place], [place], [place]) Address [address] [place] [address] Care Team Providers Care Core Drill Operator Helper Name Role Phone Juan José Kendall MD Primary Care Provider + [phone] Juan José Kendall MD Unavailable [phone] Encounter Details Date Type Department Care Team (Late st Contact Info) Description 09/27/[address] [facility] [place] Family Medicine [address] [place] [address] ProviderLaurie MD [address] [place] [address] Social History Tobacco Use Types Packs/Day Years Used Date Smoking Tobacco: Never Assessed Comments Unknown Sex and Gender Information Value Date Recorded Sex Assigned at Not on file Legal Sex Female 2:23 PM CDT Gender Identity Not on file Sexual Orientation Not on file documented as of this encounter Miscellaneous Notes * Cerner Conversion Note - Laurie ProviderMD - 09/27/2018 5:00 PM CDT Chart Check - Review Order Profile Entered On: 09/27/2018 17:05 EDT Performed On: 09/27/2018 17:00 EDT by FRANTZ BROWN, RN Chart Check Powerplans Initiated/Discontinued as Appropriate : Yes All Active Orders Reviewed : Yes FRANTZ BROWN, RN - 09/27/2018 17:05 EDT documented in this encounter Plan of Treatment Not on file documented as of this encounter Visit Diagnoses Not on filedocumented in this encounter Care Teams Core Drill Operator Helper Relationship Specialty Start Date End Date Juan José Kendall MD [address] [place] [phone] PCP - General Family Medicine 12/25/22 Juan José Kendall MD [address] [place] [address] [place] [phone] Referring Physician Family Medicine 12/25/22 documented as of this encounter
--- OUTSIDE RECORDS SUMMARY | 2025-02-22 10:03 | XMS_ITS | Encounter Summary ---
Author Organization [employer] ([place], [place], [place], [place], [place]) Address [address] [place] [address] Care Team Providers Care Grips Name Role Phone Juan José Kendall MD Primary Care Provider + [phone] Juan José Kendall MD Unavailable [phone] Encounter Details Date Type Department Care Team (Late st Contact Info) Description 10/02/2018 Transcribed Document [facility] [place] Family Medicine [place] [address] Laurie Garcia MD [address] [place] [address] Social History Tobacco Use Types Packs/Day Years [...] inj 4 mg 2 mL, IV Push, [id number] pantoprazole EC 40 mg tab 40 mg [...] on filedocumented in this encounter Care Teams Grips Relationship Specialty Start Date End Date Juan José Kendall MD [address] [place] [address] [address] [place] [address] PCP - General Family Medicine 12/25/22 Juan José Kendall MD [address] [place] [address] [address] [place] [address] Referring Physician Family Medicine 12/25/22 documented as of this encounter
--- OUTSIDE RECORDS SUMMARY | 2025-02-22 10:03 | XMS_ITS | Encounter Summary ---
Author Organization [employer] ([place], [place], [place], [place], [place]) Address [address] [place] [address] Care Team Providers Care Tattoo Designer Name Role Phone Juan José Kendall MD Primary Care Provider + [phone] Juan José Kendall MD Unavailable [phone] Encounter Details Date Type Department Care Team (Late st Contact Info) Description 09/08/2018 Transcribed Document [facility] [place] Family Medicine [address] [place] [address] ProviderLaurie MD [address] [place] [address] Social History Tobacco Use Types Packs/Day Years [...] 09/08/2018 5:00 EDT by Geena De La Garza, RN Chart Check Powerplans Initiated/Discontinued as Appropriate : Yes All Active Orders Reviewed : Yes Geena De La Garza, RN - 09/08/2018 3:48 EDT documented in this encounter Plan of Treatment Not on file documented as of this encounter Visit Diagnoses Not on filedocumented in this encounter Care Teams Tattoo Designer Relationship Specialty Start Date End Date Juan José Kendall MD [address] [place] [address] [place] [address] PCP - General Family Medicine 12/25/22 Juan José Kendall MD [address] [place] [address] [place] [phone] Referring Physician Family Medicine 12/25/22 documented as of this encounter
--- OUTSIDE RECORDS SUMMARY | 2025-02-22 10:03 | XMS_ITS | Encounter Summary ---
Author Organization [employer] ([place], [place], [place], [place], [place]) Address [address] [place] [address] Care Team Providers Care Trademark Paralegal Name Role Phone Romulo Kendall MD Primary Care Provider +- [phone] Romulo Kendall MD Unavailable [phone] Encounter Details Date Type Department Care Team (Late st Contact Info) Description 06/28/2018 Transcribed Document [facility] [place] [address] [place] [address] ProviderLaurie MD [address] [place], [place] [id number] Social History Tobacco Use Types Packs/Day Years Used Date Smoking Tobacco: Never Assessed Comments Unknown Sex and Gender Information Value Date Recorded Sex Assigned at Not on file Legal Sex Female 2:23 PM CDT Gender Identity Not on file Sexual Orientation Not on file documented as of this encounter Miscellaneous Notes * Cerner Conversion Note - Laurie ProviderMD - 06/28/2018 2:59 PM CDT [place] [address] [facility] [place] [address] Patient Copy Patient Information: Name: TRUDI BLAIR Current Date: 06/28/2018 14:59:12 : 1955 Patient [address]: [address] [place] [id number] Patient Attending Physician: JONES HIDALGO MD-INT Primary [...] Follow-up Instructions: With: Address: When: JONG SANTACRUZ [facility], [address] [place] [address] Business (8) 1:00 PM Comments: Appointment has been made [...] Barley. Bulgur wheat. Millet. Bran muffins. Popcorn. [place] wafer crackers. ?? Vegetables Sweet potatoes. Spinach. Kale. Artichokes. Cabbage. Broccoli. Green peas. Carrots. Squash. ?? Fruits Berries. Pears. Apples. Oranges. Avocados. Prunes and raisins. Dried figs. ?? Meats and Other Protein Sources [place], kidney, saxena, and soy beans. Split peas. [...] henry has 11 g of protein. ?? [place] seeds ??? 1 oz has 5.5 g [...] floor. ?? Place frequently used items in kroi-sl-swqks places ?? Keep electrical cables out of [...] ? Using the bathroom. ? Using household hotel breakfast attendant or toxic chemicals. ? Touching or taking [...] may report side effects to FDA at 7-988-CDS-3367. What other drugs will affect acetaminophen and [...] affect acetaminophen and oxycodone, including prescription and nrhj-zqq-pigdrku medicines, vitamins, and herbal products. Not all [...] to ensure that the information provided by NI. ('[employer]') is accurate, up-to-date, and complete, but no guarantee is made to that effect. Drug information contained herein may be time sensitive. [employer] information has been compiled for use by healthcare practitioners and consumers in the [place] and therefore [employer] does not warrant that uses outside of the [place] are appropriate, unless specifically indicated otherwise. [employer] drug information does not endorse drugs, diagnose patients or recommend therapy. [employer] drug information is an informational resource designed [...] effective or appropriate for any given patient. [employer] does not assume any responsibility for any aspect of healthcare administered with the aid of information [employer] provides. The information contained herein is not intended to cover all possible uses, directions, precautions, warnings, drug interactions, allergic reactions, or adverse effects. If you have questions about the drugs you are taking, check with your doctor, nurse or pharmacist. Copyright 5865-1258 NI. Version: 18.02. Revision Date: 03/02/2018. CIGARETTE SMOKING: The facts are clear, cigarette smoking will shorten your life. Smoking can cause many illnesses along the way. As a healthcare provider, we recommend that you stop smoking. Assistance with quitting is available by contacting 0-155-CEUX-NOW. This is a free resource providing counseling, [...] Be sure to sign up for the [employer] patient portal, which gives you 26/10 access to your medical information ??? including these discharge instructions ??? using your computer, smartphone, or tablet. Just go to [employer] to get started. Questions? Call . [facility] would like to thank you for allowing us to assist you with your healthcare needs. BAIRON Beltran SANDRA K, (or bilingual inside sales representative) have received the above patient education materials/instructions and have verbalized understanding: Patient Signature _ Date/Time Patient Steel Heater Signature (if needed) Date/Time Clinician/Hospital Steel Heater Signature (if needed) Date/Time documented in this encounter Plan of Treatment Not on file documented as of this encounter Visit Diagnoses Not on filedocumented in this encounter Care Teams Trademark Paralegal Relationship Specialty Start Date End Date Romulo Kendall MD [address] [facility] [address] [place] [id number] PCP - General Family Medicine 12/25/22 Romulo Kendall MD [address] [facility] [address] [place] [phone] Referring Physician Family Medicine 12/25/22 documented as of this encounter
--- OUTSIDE RECORDS SUMMARY | 2025-02-22 10:03 | XMS_ITS | Encounter Summary ---
Author Organization [employer] ([place], [place], [place], [place], [place]) Address [address] [place] [address] Care Team Providers Care Appeals Manager Name Role Phone Juan José Kendall MD Primary Care Provider + [phone] Juan José Kendall MD Unavailable [phone] Encounter Details Date Type Department Care Team (Late st Contact Info) Description 02/02/2019 Transcribed Document [facility] [place] Family Medicine [address] [place] [address] Laurie Garcia MD [address] [place] [address] Social History Tobacco Use Types Packs/Day Years Used Date Smoking Tobacco: Never Assessed Comments Unknown Sex and Gender Information Value Date Recorded Sex Assigned at Not on file Legal Sex Female 2:23 PM CDT Gender Identity Not on file Sexual Orientation Not on file documented as of this encounter Miscellaneous Notes * Cerner Conversion Note - Laurie ProviderMD - 02/02/2019 3:28 PM CDT Patient [...] ? Using the bathroom. ? Using household military education coordinator or poisonous chemicals. ? Touching or taking [...] 03/04/2009 Document Revised: 08/27/2016 Document Reviewed: 08/17/2014 [employer] Interactive Patient Education ? 2018 [employer] Patellar Tendon Tear A patellar tendon [...] are sitting or lying down. ??? Take ejwt-tpo-glhxgdw and prescription medicines only as told by [...] 03/22/2006 Document Revised: 11/24/2016 Document Reviewed: 02/28/2016 [employer] Interactive Patient Education ? 2019 [place]. documented in this encounter Plan of Treatment Not on file documented as of this encounter Visit Diagnoses Not on filedocumented in this encounter Care Teams Appeals Manager Relationship Specialty Start Date End Date Juan José Kendall MD [address] [place] [employer] [address] [place] [address] PCP - General Family Medicine 12/25/22 Juan José Kendall MD [address] [place] [employer] [address] [place] [phone] Referring Physician Family Medicine 12/25/22 documented as of this encounter
--- OUTSIDE RECORDS SUMMARY | 2025-02-22 10:03 | XMS_ITS | Encounter Summary ---
Author Organization [employer] ([place], [place], [place], [place], [place]) Address [address] [place] [address] Care Team Providers Care Table And Desk Finisher Name Role Phone Juan José Kendall MD Primary Care Provider +- [phone] Juan José Kendall MD Unavailable [phone] Encounter Details Date Type Department Care Team (Late st Contact Info) Description 09/19/2018 Transcribed Document [facility] [place] Family Medicine [address] [place] [address] ProviderLaurie MD [address] [place] [address] Social History Tobacco Use Types Packs/Day Years Used Date Smoking Tobacco: Never Assessed Comments Unknown Sex and Gender Information Value Date Recorded Sex Assigned at Not on file Legal Sex Female 2:23 PM CDT Gender Identity Not on file Sexual Orientation Not on file documented as of this encounter Miscellaneous Notes * Cerner Conversion Note - Laurie ProviderMD - 09/19/2018 3:00 PM CDT Pain [...] 18:30 EDT Pain Scale Intensity : 0 CONOR, ENOCH Finn LPN - 09/19/2018 18:30 EDT Image 4 - Images currently included in the form version of this document have not been included in the text rendition version of the form. documented in this encounter Plan of Treatment Not on file documented as of this encounter Visit Diagnoses Not on filedocumented in this encounter Care Teams Table And Desk Finisher Relationship Specialty Start Date End Date Juan José Kendall MD [address] [facility] [address] [place] [phone] PCP - General Family Medicine 12/25/22 Juan José Kendall MD [address] [facility] [address] [place] [phone] Referring Physician Family Medicine 12/25/22 documented as of this encounter
--- OUTSIDE RECORDS SUMMARY | 2025-02-22 10:03 | XMS_ITS | Encounter Summary ---
Author Organization [employer] ([place], [place], [place], [place], [place]) Address [address] [place] [address] Care Team Providers Care Car Rental Deliverer Name Role Phone Juan José Kendall MD Primary Care Provider +- [phone] Juan José Kendall MD Unavailable [phone] Encounter Details Date Type Department Care Team (Late st Contact Info) Description 09/08/2018 Transcribed Document [facility] [place] [facility] [place] [address] ProviderLaurie MD [address] [place] [address] Social History Tobacco Use Types Packs/Day Years Used Date Smoking Tobacco: Never Assessed Comments Unknown Sex and Gender Information Value Date Recorded Sex Assigned at Not on file Legal Sex Female 2:23 PM CDT Gender Identity Not on file Sexual Orientation Not on file documented as of this encounter Miscellaneous Notes * Cerner Conversion Note - Laurie ProviderMD - 09/08/2018 11:05 AM CDT Discharge Summary, PT Entered On: 09/08/2018 12:03 EDT Performed On: 09/08/2018 11:05 EDT by CARLA MARTINES PTA Discharge Summary Discharge Summary Provider Notified : Physical Therapy CARLA MARTINES PTA - 09/08/2018 11:57 EDT Reason for Discharge : Discharged from hospital, Discharge order KRUPA PATEL, PT - 09/08/2018 14:30 EDT Discharged to, [facility] Discharge Equipment, PT [...] continue to benefit from physical therapy at [facility]. Krupa Patel, PT KRUPA PATEL, PT - 09/08/2018 14:30 EDT Skilled Nursing Goals Other PT LTG Grid Goal #1 [...] in this encounter Care Teams Car Rental Deliverer Relationship Specialty Start Date End Date Juan José Kendall MD [address] [place] [id number] PCP - General Family Medicine 12/25/22 Juan José Kendall MD [address] [place] [phone] Referring Physician Family Medicine 12/25/22 documented as of this encounter
--- OUTSIDE RECORDS SUMMARY | 2025-02-22 10:03 | XMS_ITS | Encounter Summary ---
Author Organization [employer] ([place], [place], [place], [place], [place]) Address [address] [place] [address] Care Team Providers Care Mower Sharpener Name Role Phone Juan José Kendall MD Primary Care Provider +- [phone] Juan José Kendall MD Unavailable [phone] Encounter Details Date Type Department Care Team (Late st Contact Info) Description 06/28/2018 Transcribed Document [facility] [place] [address] [place] [address] ProviderLaurie MD [address] [place] [address] Social History Tobacco Use Types Packs/Day Years [...] on filedocumented in this encounter Care Teams Mower Sharpener Relationship Specialty Start Date End Date Juan José Kendall MD [address] [facility] [address] [place] [address] PCP - General Family Medicine 12/25/22 Juan José Kendall MD [address] [facility] [address] [place] [address] Referring Physician Family Medicine 12/25/22 documented as of this encounter
--- OUTSIDE RECORDS SUMMARY | 2025-02-22 10:04 | XMS_ITS | Encounter Summary ---
Author Organization [employer] ([place], [place], [place], [place], [place]) Address [address] [place] [address] Care Team Providers Care Floatlight Powder Mixer Name Role Phone Juan José Kendall MD Primary Care Provider +- [phone] Juan José Kendall MD Unavailable [phone] Encounter Details Date Type Department Care Team (Late st Contact Info) Description 01/30/2019 Transcribed Document [facility] [place] [address] [place] [address] Laurie Garcia MD [address] [place] [address] Social History Tobacco Use Types Packs/Day Years Used Date Smoking Tobacco: Never Assessed Comments Unknown Sex and Gender Information Value Date Recorded Sex Assigned at Not on file Legal Sex Female 2:23 PM CDT Gender Identity Not on file Sexual Orientation Not on file documented as of this encounter Miscellaneous Notes * Cerner Conversion Note - Laurie Garcia MD - 01/30/2019 7:01 PM CDT Pain Assessment [...] on filedocumented in this encounter Care Teams Floatlight Powder Mixer Relationship Specialty Start Date End Date Juan José Kendall MD [address] [facility] [address] [place] [address] PCP - General Family Medicine 12/25/22 Juan José Kendall MD [address] [facility] [address] [place] [address] Referring Physician Family Medicine 12/25/22 documented as of this encounter
--- OUTSIDE RECORDS SUMMARY | 2025-02-22 10:04 | XMS_ITS | Encounter Summary ---
Author Organization [employer] ([place], [place], [place], [place], [place]) Address [address] [place] [address] Care Team Providers Care Tub Wash Operator Name Role Phone Juan José Kendall MD Primary Care Provider + [phone] Juan José Kendall MD Unavailable [phone] Encounter Details Date Type Department Care Team (Late st Contact Info) Description 01/30/2019 Transcribed Document [facility] [place] [address] [place] [address] ProviderLaurie MD [address] [place] [address] Social History Tobacco Use Types Packs/Day Years [...] on filedocumented in this encounter Care Teams Tub Wash Operator Relationship Specialty Start Date End Date Juan José Kendall MD [address] [facility] [address] [place] [address] PCP - General Family Medicine 12/25/22 Juan José Kendall MD [address] [facility] [address] [place] [address] Referring Physician Family Medicine 12/25/22 documented as of this encounter
--- OUTSIDE RECORDS SUMMARY | 2025-02-22 10:04 | XMS_ITS | Encounter Summary ---
Author Organization [employer] ([place], [place], [place], [place], [place]) Address [address] [place] [address] Care Team Providers Care Dry Janitor Name Role Phone Juan José Kendall MD Primary Care Provider + [phone] Juan José Kendall MD Unavailable [phone] Encounter Details Date Type Department Care Team (Late st Contact Info) Description 09/27/2018 Transcribed Document [facility] [place] Medicine Pending sale to [facility] [address] Laurie Garcia MD [address] [place] [address] Social History Tobacco Use Types Packs/Day Years [...] inj 4 mg 2 mL, IV Push, [id number] pantoprazole EC 40 mg tab 40 mg [...] filedocumented in this encounter Care Teams Dry Janitor Relationship Specialty Start Date End Date Juan José Kendall MD [address] [place] [facility] [address] [place] [address] PCP - General Family Medicine 12/25/22 Juan José Kendall MD [address] [place] [facility] [address] [place] [address] Referring Physician Family Medicine 12/25/22 documented as of this encounter
--- OUTSIDE RECORDS SUMMARY | 2025-02-22 10:04 | XMS_ITS | Encounter Summary ---
Author Organization [employer] ([place], [place], [place], [place], [place]) Address [address] [place] [address] Care Team Providers Care [employer] Assistant Manager Name Role Phone Juan José Kendall MD Primary Care Provider +- [phone] Juan José Kendall MD Unavailable [phone] Encounter Details Date Type Department Care Team (Late st Contact Info) Description 09/28/2018 Transcribed Document [facility] [place] Family Medicine [address] [place] [address] ProviderLaurie MD [address] [place] [address] Social History Tobacco Use Types Packs/Day Years Used Date Smoking Tobacco: Never Assessed Comments Unknown Sex and Gender Information Value Date Recorded Sex Assigned at Not on file Legal Sex Female 2:23 PM CDT Gender Identity Not on file Sexual Orientation Not on file documented as of this encounter Miscellaneous Notes * Cerner Conversion Note - Laurie ProviderMD - 09/28/2018 9:00 AM CDT Pain [...] on filedocumented in this encounter Care Teams [employer] Assistant Manager Relationship Specialty Start Date End Date Juan José Kendall MD [address] [facility] [address] [place] [address] PCP - General Family Medicine 12/25/22 Juan José Kendall MD [address] [facility] [address] [place] [address] Referring Physician Family Medicine 12/25/22 documented as of this encounter
--- OUTSIDE RECORDS SUMMARY | 2025-02-22 10:04 | XMS_ITS | Encounter Summary ---
Author Organization [employer] ([place], [place], [place], [place], [place]) Address [address] [place] [address] Care Team Providers Care Sand Conditioner Name Role Phone Juan José Kendall MD Primary Care Provider + [phone] Juan José Kendall MD Unavailable [phone] Encounter Details Date Type Department Care Team (Late st Contact Info) Description 01/30/[address] [facility] [place] [address] [place] [address] Laurie Garcia MD [address] [place] [address] Social History Tobacco Use Types Packs/Day Years [...] to me from multiple previous admissions at [facility] in as well as tach who was [...] mg cap 200 mg 1 Cap, Oral, [id number] enoxaparin 30 mg/0.3 ml inj 30 mg 0.3 mL, SubCutaneous, [id number] enoxaparin 40 mg/0.4 mL inj 40 mg 0.4 mL, SubCutaneous, [id number] metoclopramide 10 mg tab 10 mg 1 [...] Topical, Daily phenol 1.4% throat spray 5 [place], Oral, Q2H promethazine 25 mg tab 12.5 [...] lower extremity in a cast. Integumentary: Warm, [place], Intact, No pallor, No rash. Neurologic: Alert, [...] then you may give Tylenol 650 mg PO/NV x 1. If no response in 2 [...] on filedocumented in this encounter Care Teams Sand Conditioner Relationship Specialty Start Date End Date Juan José Kendall MD [address] [facility] [address] [place] [address] PCP - General Family Medicine 12/25/22 Juan José Kendall MD [address] [facility] [address] [place] [address] Referring Physician Family Medicine 12/25/22 documented as of this encounter
--- OUTSIDE RECORDS SUMMARY | 2025-02-22 10:04 | XMS_ITS | Encounter Summary ---
Author Organization [employer] ([place], [place], [place], [place], [place]) Address [address] [place] [address] Care Team Providers Care Mainstreaming Facilitator Name Role Phone Juan José Kendall MD Primary Care Provider +- [phone] Juan José Kendall MD Unavailable [phone] Encounter Details Date Type Department Care Team (Late st Contact Info) Description 01/30/2019 Transcribed Document [facility] [place] Medicine [address] [place] [address] ProviderLaurie MD [address] [place] [address] Social History Tobacco Use Types Packs/Day Years [...] Visit Type, OT : Initial evaluation VALENTINA RETANA, OTR/L - 01/31/2019 10:08 EDT Patient Orders [...] Walker, Wheelchair ADL Equipment : Aid, sock, Docketing Specialist, Sponge, long handled Commode : Commode, bedside [...] Comment : min/mod x 2 VALENTINA RETANA OTR/L 01/31/2019 10:27 EDT Toilet Transfer Assist Level : Assist, minimal Toilet Transfer Device : Belt, gait, Commode, bedside, Walker, rolling Toilet Transfer Comment : x 2 VALENTINA RETANA OTR/L 01/31/2019 10:14 EDT Mobility Device/Prosthesis/Wt Bearing Weight Bearing Status Maintained : Yes Weight Bearing Status : As tolerated Functional Mobility Device : Gait belt, Walker, front wheel Functional Mobility with Brace/Splint : Yes VALENTINA RETANA OTR/L 01/31/2019 10:14 EDT Functional Mobility Mobility Grid Supine to Sit : Rehab Minimal assistance (Comment: with offloading weight of cast [VALENTINA RETANA OTR/L 01/31/2019 10:14 EDT] ) Sit to Stand : Rehab Minimal assistance (Comment: x 2 from elevated surface [VALENTINA RETANA OTR/L 01/31/2019 10:14 EDT] ) Bed to Chair : Rehab Minimal assistance Stand to Sit : Rehab Minimal assistance (Comment: x 2 [VALENTINA RETANA OTR/Ivan 01/31/2019 10:14 EDT] ) VALENTINA RETANA OTR/L 01/31/2019 10:14 EDT AM PAC Daily Activity Putting On/Taking Off Lower Body Clothes : A lot Bathing (Washing, Rinsing, Drying) : A little Toileting Includes Toilet, Bedpan, Urinal : A little Putting On/Taking Off Upper Clothing : None Taking Care of Grooming : None Eating Meals : None AM-PAC Daily Activity Raw Score : 20 VALENTINA RETANA OTR/L 01/31/2019 10:14 EDT Image 3 - Images currently included in the form version of this document have not been included in the text rendition version of the form. Activity Tolerance, OT Activity Comment : GOOD VALENTINA RETANA OTR/L 01/31/2019 10:14 EDT Cognition Assessment, OT Orientation : Oriented x 4 VALENTINA RETANA OTR/L 01/31/2019 10:14 EDT Education OT Occupational Therapy [...] VALENTINA RETANA OTR/Ivan - 01/31/2019 10:14 EDT Care Home Goals, OT Other LTG Grid Goal #1 [...] bilateral Pain Comment : nurse aware VALENTINA RETANA, OTR/L - 01/31/2019 10:14 EDT Image 1 - Images currently included in the form version of this document have not been included in the text rendition version of the form. Anticipated Discharge Needs, OT/PT Anticipated Discharge to : Other: to be determined. Recommend Continued Therapy at Discharge : Yes VALENTINA RETANA, OTR/L - 01/31/2019 10:14 EDT [place] OT Charges OT Selfcare/Hm Mgmt Ea 15 Min : 1 OT Eval Low Complexity : 1 VALENTINA RETANA, OTR/L - 01/31/2019 10:14 EDT Electronically signed by [facility], [facility] Conversion Drafter Seismograph Cerner at 07/24/2022 3:34 PM CDT documented in this encounter Plan of Treatment Not on file documented as of this encounter Visit Diagnoses Not on filedocumented in this encounter Care Teams Mainstreaming Facilitator Relationship Specialty Start Date End Date Juan José Kendall MD [address] [place] [facility] [address] [place] [address] PCP - General Family Medicine 12/25/22 Juan José Kendall MD [address] [place] [facility] [address] [place] [address] Referring Physician Family Medicine 12/25/22 documented as of this encounter
--- OUTSIDE RECORDS SUMMARY | 2025-02-22 10:04 | XMS_ITS | Encounter Summary ---
Author Organization [employer] ([place], [place], [place], [place], [place]) Address [address] [place] [address] Care Team Providers Care Tobacco Weigher Name Role Phone Juan José Kendall MD Primary Care Provider +- [phone] Juan José Kendall MD Unavailable [phone] Encounter Details Date Type Department Care Team (Late st Contact Info) Description 10/10/2018 Transcribed Document [facility] [place] Family Medicine [address] [place] [address] ProviderLaurie MD [address] [place] [address] Social History Tobacco Use Types Packs/Day Years [...] Note : 10/10/2018 Discharge summary faxed to [facility]. Auth# [id number]. Care Management Note Report : PJ NELSON - 10/05/18 16:09:42 10/05/2018 Fax received from [facility] with approval for 10/05/2018, with anticipated DC date of tomorrwo, 10/06/2018. Auth# [id number]. CHAYITO CHARLES, RN - 10/05/18 13:15:03 Chayito [...] was okay with [place] going [place] [facility] facility and following up with Dr. Robles in 3 weeks then he would see her after that. PJ NELSON - 10/05/18 13:09:24 Follow-up appts scheduled: Dr. Ulloa (ID) 10/19/2018 @ 1315, Dr. Robles (ortho) 10/25/2018 @ 1030. PJ NELSON - 10/05/18 11:30:14 10/05/2018 Call received from [facility], they have received the insurance authorization for admission, jermainebrian marinelli to get her tomorrow. Dr. Porter notified, and in agreement. Accepting physician Dr. Ordonez. Call report to [phone]. Fax DC summary to [phone]. [facility] scheduled for 10/06/2018 @ 1300. PJ NELSON - 10/05/18 08:54:39 10/05/2018 Clinical review faxed to [facility] ([phone]) to request coverage for continued LTACH services. Approval pending. Auth# [id number]. PJ NELSON - 10/05/18 08:47:08 Patient/ chose [facility]. Per Ashley, insurance preauth was started, awaiitng response. PJ NELSON 10/04/18 10:04:33 10/04/2018 Bed offer received from [facility]. Family notified,now requesting to reconsider [facility]. I have explained that we need an answer for which place the prefer so that we can move forward with placement. states he will call both facilities, and they will make a decision. PJ NELSON - 10/03/18 15:02:06 10/03/2018 Spoke with [facility], they do not have a contract with [facility]. PJ NELSON 10/03/18 14:57:34 10/03/2018 Call received from [facility], they are unable to offer a bed for this patient. Patient and notified. They request a referral be faxed to [facility] (P: [phone] F: [phone]), faxed per their request. Awaiting a call [...] it be close to her home in [place]. Referrals faxed to Debbie Patricia (Signature liaison), Zach Au, and Ron. Awaiting a call back. PJ NELSON 09/28/18 16:26:43 09/28/2018 Fax recieved from [facility] with approval for LTACH services 09/29-10/04. Auth# [id number]. Fax next clinical review to [phone] on 10/05/2018. PJ NELSON 09/28/18 08:24:24 09/28/2018 Clinical review faxed to [facility] ([phone]) to request coverage for continued LTACH services. Approval pending. Auth# [id number]. PJ NELSON - 09/21/18 15:48:14 09/21/2018 Fax recieved from [facility] with approval for LTACH coverage 09/22/2018-09/28/2018. Auth# [id number]. Fax next clinical review to [phone] on 09/28/2018. PJ NELSON - 09/21/18 08:22:57 09/21/2018 Clinical review faxed to [facility] ([phone]) to request coverage for continued LTACH services. Approval pending. Auth# [id number]. PJ NELSON - 09/15/18 11:34:17 09/15/2018 Fax recieved from [facility] with approval for LTACH services 09/15-09/21/2018. Auth# [id number]. Fax next clinical review to [phone] on 09/21/2018. PJ NELSON - 09/14/18 08:28:49 09/14/2018 Clinical review faxed to [facility] ([phone]) to request coverage for continued LTACH services. Approval pending. Auth# [id number]. Chuyita Briceno, Clinical Assessment Liaison - 09/09/18 [...] unit or SNF. She has previously used [facility] and prefers to use them again if needed. The patient owns a shower chair, BSC and w/c. The patient has never needed a dialysis clinic. The patient has not fallen in the past 3 months. PCP- Dr. Ranjeet [facility]- Orthopedic- Dr. Shay Guerrero [facility]- [facility][1] SNF- [facility] The patient does wish to return home upon discharge but understands that rehab/SNF may be needed. All papers were explained and signed. No other issues. CM will continue to monitor. Documentation Status Complete : Yes PJ NELSON - 10/10/2018 7:47 EDT Electronically signed by Aleks, [facility] Conversion Big Data Developer Cerner at 07/24/2022 3:36 PM CDT documented in this encounter Plan of Treatment Not on file documented as of this encounter Visit Diagnoses Not on filedocumented in this encounter Care Teams Tobacco Weigher Relationship Specialty Start Date End Date Juan José Kendall MD 1210 [facility] [address] [place] [address] PCP - General Family Medicine 12/25/22 Juan José Kendall MD [address] [facility] [address] [place] [address] Referring Physician Family Medicine 12/25/22 documented as of this encounter
--- OUTSIDE RECORDS SUMMARY | 2025-02-22 10:04 | XMS_ITS | Encounter Summary ---
Author Organization [employer] ([place], [place], [place], [place], [place]) Address [address] [place] [address] Care Team Providers Care Maintenance Carpenter Name Role Phone Juan José Kendall MD Primary Care Provider +- [phone] Juan José Kendall MD Unavailable [phone] Encounter Details Date Type Department Care Team (Late st Contact Info) Description 09/27/2018 Transcribed Document [facility] [place] [address] [place] [address] ProviderLaurie MD [address] [place] [address] Social History Tobacco Use Types Packs/Day Years Used Date Smoking Tobacco: Never Assessed Comments Unknown Sex and Gender Information Value Date Recorded Sex Assigned at Not on file Legal Sex Female 2:23 PM CDT Gender Identity Not on file Sexual Orientation Not on file documented as of this encounter Miscellaneous Notes * Cerner Conversion Note - Laurie ProviderMD - 09/27/2018 2:00 AM CDT Television Cable Installer Details Entered On: 09/27/2018 3:20 EDT Performed [...] 09/27/2018 3:20 EDT Electronically signed by Aleks [facility] Conversion Associate Merchandiser Cerner at 07/24/2022 3:56 PM CDT documented in this encounter Plan of Treatment Not on file documented as of this encounter Visit Diagnoses Not on filedocumented in this encounter Care Teams Maintenance Carpenter Relationship Specialty Start Date End Date Juan José Kendall MD [address] [place] [facility] [address] [place] [address] PCP - General Family Medicine 12/25/22 Juan José Kendall MD 1210 [facility] [address] [place] [address] Referring Physician Family Medicine 12/25/22 documented as of this encounter
--- OUTSIDE RECORDS SUMMARY | 2025-02-22 10:04 | XMS_ITS | Encounter Summary ---
Author Organization [employer] ([place], [place], [place], [place], [place]) Address [address] [place] [address] Care Team Providers Care Physician Name Role Phone Juan José Kendall MD Primary Care Provider +- [phone] Juan José Kendall MD Unavailable [phone] Encounter Details Date Type Department Care Team (Late st Contact Info) Description 09/27/2018 Transcribed Document [facility] [place] [address] [place] [address] ProviderLaurie MD [address] [place] [address] Social History Tobacco Use Types Packs/Day Years [...] Performed On: 09/27/2018 10:32 EDT by FRANTZ BROWN RN Intervention Information: acetaminophen Performed by FRANTZ BROWN RN on 09/27/2018 09:32:00 EDT acetaminophen,500mg Oral [...] filedocumented in this encounter Care Teams Physician Relationship Specialty Start [place] [address] [place] [address] [address] [place] [address] PCP - General Family Medicine 12/25/22 Juan José Kendall MD [address] [place] [address] [address] [place] [address] Referring Physician Family Medicine 12/25/22 documented as of this encounter
--- OUTSIDE RECORDS SUMMARY | 2025-02-22 10:04 | XMS_ITS | Encounter Summary ---
Author Organization [employer] ([place], [place], [place], [place], [place]) Address [address] [place] [address] Care Team Providers Care Roller Gold Leaf Name Role Phone Juan José Kendall MD Primary Care Provider +- [phone] Juan José Kendall MD Unavailable [phone] Encounter Details Date Type Department Care Team (Late st Contact Info) Description 01/30/2019 Transcribed Document [facility] [place] [address] [place] [address] Laurie Garcia MD [address] [place] [address] Social History Tobacco Use Types Packs/Day Years [...] version of the form. Electronically signed by [facility], [facility] Conversion Collection Development Librarian Cerner at 07/24/2022 3:53 PM CDT documented in this encounter Plan of Treatment Not on file documented as of this encounter Visit Diagnoses Not on filedocumented in this encounter Care Teams Roller Gold Leaf Relationship Specialty Start Date End Date Juan José Kendall MD 1210 [facility] [address] [place] [address] PCP - General Family Medicine 12/25/22 Juan José Kendall MD 1210 [facility] [address] [place] [address] Referring Physician Family Medicine 12/25/22 documented as of this encounter
--- OUTSIDE RECORDS SUMMARY | 2025-02-22 10:04 | XMS_ITS | Encounter Summary ---
Author Organization [employer] ([place], [place], [place], [place], [place]) Address [address] [place] [address] Care Team Providers Care Agricultural Economics Professor Name Role Phone Juan José Kendall MD Primary Care Provider +- [phone] Juan José Kendall MD Unavailable [phone] Encounter Details Date Type Department Care Team (Late st Contact Info) Description 01/30/2019 Transcribed Document [facility] [place] [address] [place] [address] ProviderLaurie MD [address] [place], [place] [address] Social History Tobacco Use Types Packs/Day Years Used Date Smoking Tobacco: Never Assessed Comments Unknown Sex and Gender Information Value Date Recorded Sex Assigned at Not on file Legal Sex Female 2:23 PM CDT Gender Identity Not on file Sexual Orientation Not on file documented as of this encounter Miscellaneous Notes * Cerner Conversion Note - Laurie ProviderMD - 01/30/2019 2:[address] PreOp Summary Primary Physician: JONG SANTACRUZ MD-ORT Finalized Date/Time: 02/06/19 09:53:44 Pt. Name: ROSSY TRUDI KAY /Sex: 1955 Female Med Rec #: [id number] Physician: JONES HIDALGO MD-INT Financial #: [id number] Pt. Type: I Room/Bed: [facility]/ Admit/Disch: 02/01/19 14:51:00 - 02/02/19 17:03:00 [place] [facility] [place] Times Entry 1 In Preop 01/30/19 11:40:00 Ready for Holding n/a Room Patient Ready for 01/30/19 13:04:00 Surgery Patient Out of Preop 01/30/19 14:00:00 Patient Out of n/a Holding Room Last Modified By: MARYBEL BOWEN 02/06/19 09:53:42 [facility] [place] Case Times Audit 02/06/19 09:53:42 District Agent: RADERTAN Modifier: [email or web address] <+> 1 Patient Out of Preop 01/30/19 13:51:52 District Agent: RADERTAN Modifier: RADERTAN <+> 1 Patient Ready for Surgery Finalized By: MARYBEL BOWEN Document Signatures Signed By: MARYBEL BOWEN 02/06/19 09:53 Electronically signed by Aleks [facility] Conversion Mixing Tank Operator Cerner at 07/24/2022 3:41 PM CDT documented in this encounter Plan of Treatment Not on file documented as of this encounter Visit Diagnoses Not on filedocumented in this encounter Care Teams Agricultural Economics Professor Relationship Specialty Start Date End Date [...]
--- OUTSIDE RECORDS SUMMARY | 2025-02-22 10:04 | XMS_ITS | Encounter Summary ---
Author Organization [employer] ([place], [place], [place], [place], [place]) Address [address] [place] [address] Care Team Providers Care Licensed Guide Name Role Phone Juan José Kendall MD Primary Care Provider + [phone] Juan José Kendall MD Unavailable [phone] Encounter Details Date Type Department Care Team (Late st Contact Info) Description 09/28/2018 Transcribed Document [facility] [place] Family Medicine [address] [place] [address] ProviderLaurie MD [address] [place] [address] Social History Tobacco Use Types Packs/Day Years [...] Performed On: 09/28/2018 5:00 EDT by Angy Esqueda, Rn Chart Check Powerplans Initiated/Discontinued as Appropriate : Yes All Active Orders Reviewed : Yes Angy Esqueda, Emeli - 09/28/2018 4:43 EDT documented in this encounter Plan of Treatment Not on file documented as of this encounter Visit Diagnoses Not on filedocumented in this encounter Care Teams Licensed Guide Relationship Specialty Start Date End Date Juan José Kendall MD [address] [place] [address] PCP - General Family Medicine 12/25/22 Juan José Kendall MD [address] [place] [address] Referring Physician Family Medicine 12/25/22 documented as of this encounter
--- OUTSIDE RECORDS SUMMARY | 2025-02-22 10:04 | XMS_ITS | Encounter Summary ---
Author Organization [employer] ([place], [place], [place], [place], [place]) Address [address] [place] [address] Care Team Providers Care Title Searcher Name Role Phone Juan José Kendall MD Primary Care Provider +- [phone] Juan José Kendall MD Unavailable [phone] Encounter Details Date Type Department Care Team (Late st Contact Info) Description 09/27/2018 Transcribed Document [facility] [place] [address] [place] [address] ProviderLaurie MD [address] [place] [address] Social History Tobacco Use Types Packs/Day Years Used Date Smoking Tobacco: Never Assessed Comments Unknown Sex and Gender Information Value Date Recorded Sex Assigned at Not on file Legal Sex Female 2:23 PM CDT Gender Identity Not on file Sexual Orientation Not on file documented as of this encounter Miscellaneous Notes * Cerner Conversion Note - Laurie ProviderMD - 09/27/2018 3:00 PM CDT Pain Assessment Entered On: 09/27/2018 17:05 EDT Performed On: 09/27/2018 16:11 EDT by FRANTZ BROWN RN Intervention Information: [...] form. Electronically signed by Adia Fink Conversion Senior Customer Service Representative Cerner at 07/24/2022 3:59 PM CDT documented in this encounter Plan of Treatment Not on file documented as of this encounter Visit Diagnoses Not on filedocumented in this encounter Care Teams Title Searcher Relationship Specialty Start Date End Date Juan José Kendall MD [address] [facility] [address] [place] [address] PCP - General Family Medicine 12/25/22 Juan José Kendall MD [address] [place] [address] [address] [place] [address] Referring Physician Family Medicine 12/25/22 documented as of this encounter
--- OUTSIDE RECORDS SUMMARY | 2025-02-22 10:05 | XMS_ITS | Encounter Summary ---
Author Organization [employer] ([place], [place], [place], [place], [place]) Address [address] [place] [address] Care Team Providers Care Office Machine Installer Name Role Phone Juan José Kendall MD Primary Care Provider + [phone] Juan José Kendall MD Unavailable [phone] Encounter Details Date Type Department Care Team (Late st Contact Info) Description 09/28/2018 Transcribed Document [facility] [place] Family Medicine [address] [place] [address] ProviderLaurie MD [address] [place] [address] Social History Tobacco Use Types Packs/Day Years Used Date Smoking Tobacco: Never Assessed Comments Unknown Sex and Gender Information Value Date Recorded Sex Assigned at Not on file Legal Sex Female 2:23 PM CDT Gender Identity Not on file Sexual Orientation Not on file documented as of this encounter Miscellaneous Notes * Cerner Conversion Note - Laurie ProviderMD - 09/28/2018 3:53 PM CDT Interdisciplinary [...] in this encounter Care Teams Office Machine Installer Relationship Specialty Start Date End Date [...]
--- OUTSIDE RECORDS SUMMARY | 2025-02-22 10:05 | XMS_ITS | Encounter Summary ---
Author Organization [employer] ([place], [place], [place], [place], [place]) Address [address] [place] [address] Care Team Providers Care Job Counselor Name Role Phone Juan José Kendall MD Primary Care Provider + [phone] Juan José Kendall MD Unavailable [phone] Encounter Details Date Type Department Care Team (Late st Contact Info) Description 09/28/2018 Transcribed Document [facility] [place] [facility] [place] [address] Laurie Garcia MD [address] [place] [address] Social History Tobacco Use Types Packs/Day Years [...] inj 4 mg 2 mL, IV Push, [id number] pantoprazole EC 40 mg tab 40 mg [...] EDT, Nurse Collect. Electronically signed by Aleks [facility] Conversion Cutter Brake Lining [employer]ner at 07/24/2022 3:38 PM CDT documented in this encounter Plan of Treatment Not on file documented as of this encounter Visit Diagnoses Not on filedocumented in this encounter Care Teams Job Counselor Relationship Specialty Start Date End Date [...]
--- OUTSIDE RECORDS SUMMARY | 2025-02-22 10:05 | XMS_ITS | Encounter Summary ---
Author Organization [employer] ([place], [place], [place], [place], [place]) Address [address] [place] [address] Care Team Providers Care Bias Cutting Machine Operator Name Role Phone Juan José Kendall MD Primary Care Provider +- [phone] Juan José Kendall MD Unavailable [phone] Encounter Details Date Type Department Care Team (Late st Contact Info) Description 01/30/2019 Transcribed Document [facility] [place] [address] [place] [address] ProviderLaurie MD [address] [place] [address] Social History Tobacco Use Types Packs/Day Years Used Date Smoking Tobacco: Never Assessed Comments Unknown Sex and Gender Information Value Date Recorded Sex Assigned at Not on file Legal Sex Female 2:23 PM CDT Gender Identity Not on file Sexual Orientation Not on file documented as of this encounter Miscellaneous Notes * [employer]ner Conversion Note - Laurie ProviderMD - 01/30/2019 1:00 PM CDT Spiritual Care Assessment Entered On: 01/30/2019 14:14 EDT Performed On: 01/30/2019 13:00 EDT by LAWRENCE RICHARDS Chaplain-Non Cert General Information Initial Visit : Yes Referred by : Nurse Ministry Provided to : Patient, Family/Significant other Episcopalian Preference : LAWRENCE Chavez Chaplain-Non Cert - 01/30/2019 14:13 EDT Spiritual Assessment Spiritual Assessment Comment/Summary Points : Trudi requests prayer prior to her surgery today. Her is with her and appears supportive. Spirital Assessment Comment/Summary Report : SPIRITUAL ASSESSMENT COMMENT/SUMMARY No qualifying data available. LAWRENCE RICHARDS Chaplain-Non Cert - 01/30/2019 14:13 EDT Interventions Emotional Support : Emotional, Family/Significant other supported Spiritual and Episcopalian : Prayer shared LAWRENCE RICHARDS Chaplain-Non Cert - 01/30/2019 14:13 EDT Electronically signed by [facility] Conversion Infectious Diseases Physician Cerner at 07/24/2022 3:40 PM CDT documented in this encounter Plan of Treatment Not on file documented as of this encounter Visit Diagnoses Not on filedocumented in this encounter Care Teams Bias Cutting Machine Operator Relationship Specialty Start Date [...]
--- OUTSIDE RECORDS SUMMARY | 2025-02-22 10:05 | XMS_ITS | Encounter Summary ---
Author Organization [employer] ([place], [place], [place], [place], [place]) Address [address] [place] [address] Care Team Providers Care Enthone Solder Stripper Name Role Phone Juan José Kendall MD Primary Care Provider + [phone] Juan José Kendall MD Unavailable [phone] Encounter Details Date Type Department Care Team (Late st Contact Info) Description 09/28/2018 Transcribed Document [facility] [place] Family Medicine [facility] [place] [address] ProviderLaurie MD [address] [place] [address] Social History Tobacco Use Types Packs/Day Years [...] getting wound care. She was transferred [place] [facility] [place] for a higher level [...] HTN Cancer Social History: . lives in [place]. No tobacco, ETOH, or illicit drug use. [...] 167 (SEP 28 07:00) H 142 (SEP 27:00) H 167 (SEP 28:00) DBP 68 (SEP 28 07:00) 66 (SEP 27 19:00) 77 (SEP 27 15:00) SpO2 96 (SEP 28:00) 96 (SEP 28:00) 98 (SEP 27:00) PE: General: patient is alert and in [...] (Last four charted values) WBC 5.8 (SEP 26) 5.7 (SEP 17) 7.0 (EDGARD 14) 7.2 (EDGARD 10) HB L 8.3 (SEP 24) L 8.2 (EDGARD 17) L 8.6 (EDGARD 14) L 8.2 (EDGARD 10) HCT L 26.3 (SEP 24) L 26.3 (EDGARD 17) L 27.2 [...] IV antibiotic therapy. Electronically signed by Aleks, [facility] Conversion Operator [employer] Cerner at 07/24/2022 3:36 PM CDT documented in this encounter Plan of Treatment Not on file documented as of this encounter Visit Diagnoses Not on filedocumented in this encounter Care Teams Enthone Solder Stripper Relationship Specialty Start Date End Date Juan José Kendall MD [address] [facility] [address] [place] [address] PCP - General Family Medicine 12/25/22 Juan José Kendall MD [address] [facility] [address] [place] [address] Referring Physician Family Medicine 12/25/22 documented as of this encounter
--- OUTSIDE RECORDS SUMMARY | 2025-02-22 10:06 | XMS_ITS | Encounter Summary ---
Author Organization [employer] ([place], [place], [place], [place], [place]) Address [address] [place] [address] Care Team Providers Care Career Development Coordinator/Teacher Name Role Phone Juan José Kendall MD Primary Care Provider + [phone] Juan José Kendall MD Unavailable [phone] Encounter Details Date Type Department Care Team (Late st Contact Info) Description 09/26/2018 Transcribed Document [facility] [place] [facility] [place] [address] ProviderLaurie MD [address] [place] [address] Social History Tobacco Use Types Packs/Day Years Used Date Smoking Tobacco: Never Assessed Comments Unknown Sex and Gender Information Value Date Recorded Sex Assigned at Not on file Legal Sex Female 2:23 PM CDT Gender Identity Not on file Sexual Orientation Not on file documented as of this encounter Miscellaneous Notes * Cerner Conversion Note - Laurie Garcia MD - 09/26/2018 11:53 AM CDT Patient: TRUDI [...] repair. She was more recently admitted to [facility] x2 earlier this month on [...] getting wound care. She was transferred to [facility] [place] today for a higher level [...] HTN Cancer Social History: . lives in [place]. No tobacco, ETOH, or illicit drug use. [...] 10:11) 83 (SEP 24 10:11) 83 (SEP 26 10:11) Mon HR 83 (SEP 26 07:46) 68 (SEP 25 15:47) 83 (SEP 26 07:46) Resp Rate 19 (SEP 26 07:46) 16 (SEP 25 15:47) 19 (SEP 26 07:46) SBP H 160 (SEP 26 10:11) 138 (SEP 25 23:00) H 167 (SEP 25 19:00) DBP 74 (SEP 24 10:11) 64 (SEP 23 23:00) 74 (SEP 25 19:00) MAP 93 [...] with her today Electronically signed by Aleks, [facility] Conversion Second Grade Teacher Cerner at 07/24/2022 3:43 PM CDT documented in this encounter Plan of Treatment Not on file documented as of this encounter Visit Diagnoses Not on filedocumented in this encounter Care Teams Career Development Coordinator/Teacher Relationship Specialty Start Date End Date Juan José Kendall MD [address] [facility] [address] [place] [address] PCP - General Family Medicine 12/25/22 Juan José Kendall MD [address] [facility] [address] [place] [address] Referring Physician Family Medicine 12/25/22 documented as of this encounter
--- OUTSIDE RECORDS SUMMARY | 2025-02-22 10:06 | XMS_ITS | Encounter Summary ---
Author Organization [employer] ([place], [place], [place], [place], [place]) Address [address] [place] [address] Care Team Providers Care Construction Consultant Name Role Phone Juan José Kendall MD Primary Care Provider +- [phone] Juan José Kendall MD Unavailable [phone] Encounter Details Date Type Department Care Team (Late st Contact Info) Description 09/26/2018 Transcribed Document [facility] [place] [facility] [place] [address] ProviderLaurie MD [address] [place] [address] Social History Tobacco Use Types Packs/Day Years [...] 24 10:11) 83 (EDGARD 24 10:11) 83 (SEP 24 10:11) Mon HR 83 (SEP 26 07:46) 68 (SEP 25 15:47) 83 (SEP 26 07:46) Resp Rate 19 (SEP 26 07:46) 16 (SEP 25 15:47) 19 (SEP 26 07:46) SBP H 160 (SEP 24 10:11) 138 (EDGARD 23 23:00) H 167 (SEP 23 19:00) DBP 74 (SEP 24 10:11) 64 (EDGARD 23 23:00) 74 (SEP 23 19:00) MAP 93 (SEP 26 07:46) 91 (SEP 25 15:47) 93 (SEP 26 07:46) SpO2 94 (SEP 26 07:46) 94 (SEP 26 07:46) 98 (SEP 25 15:47) Cultures: 08/10 [...] Bethany Mo, SriniD Electronically signed by Aleks [facility] Conversion Linux Programmer Cerner at 07/24/2022 3:36 PM CDT documented in this encounter Plan of Treatment Not on file documented as of this encounter Visit Diagnoses Not on filedocumented in this encounter Care Teams Construction Consultant Relationship Specialty Start Date End Date Juan José Kendall MD [address] [facility] [address] [place] [address] PCP - General Family Medicine 12/25/22 Juan José Kendall MD [address] [facility] [address] [place] [address] Referring Physician Family Medicine 12/25/22 documented as of this encounter
--- OUTSIDE RECORDS SUMMARY | 2025-02-22 10:06 | XMS_ITS | Encounter Summary ---
Author Organization [employer] ([place], [place], [place], [place], [place]) Address [address] [place] [address] Care Team Providers Care Software Maintenance Engineer Name Role Phone Juan José Kendall MD Primary Care Provider + [phone] Juan José Kendall MD Unavailable [phone] Encounter Details Date Type Department Care Team (Late st Contact Info) Description 10/06/2018 Transcribed Document [facility] [place] Family Medicine [address] [place] [address] Laurie Garcia MD [address] [place] [address] Social History Tobacco Use Types Packs/Day Years Used Date Smoking Tobacco: Never Assessed Comments Unknown Sex and Gender Information Value Date Recorded Sex Assigned at Not on file Legal Sex Female 2:23 PM CDT Gender Identity Not on file Sexual Orientation Not on file documented as of this encounter Miscellaneous Notes * Cerner Conversion Note - Laurie Garcia MD - 10/06/2018 12:15 PM CDT Patient Education [...] Follow these instructions at home: ??? Take cqqw-ayb-uovucrj and prescription medicines only as told by [...] 04/29/2005 Document Revised: 04/23/2017 Document Reviewed: 04/23/2017 [employer] Interactive Patient Education ? 2019 [employer]. documented in this encounter Plan of Treatment Not on file documented as of this encounter Visit Diagnoses Not on filedocumented in this encounter Care Teams Software Maintenance Engineer Relationship Specialty Start Date End Date Juan José Kendall MD [address] [facility] [address] [place] [address] PCP - General Family Medicine 12/25/22 Juan José Kendall MD [address] [place] [facility] [address] [place] [address] Referring Physician Family Medicine 12/25/22 documented as of this encounter
--- OUTSIDE RECORDS SUMMARY | 2025-02-22 10:06 | XMS_ITS | Encounter Summary ---
Author Organization [employer] ([place], [place], [place], [place], [place]) Address [address] [place] [address] Care Team Providers Care Net Trainer Name Role Phone Juna José Kendall MD Primary Care Provider + [phone] Juan José Kendall MD Unavailable [phone] Encounter Details Date Type Department Care Team (Late st Contact Info) Description 10/06/2018 Transcribed Document [facility] [place] Family Medicine [address] [place] [address] Laurie Garcia MD [address] [place] [address] Social History Tobacco Use Types Packs/Day Years [...] 02/05/2006 Document Revised: 08/27/2016 Document Reviewed: 11/16/2014 [employer] Interactive Patient Education ? 2019 [employer] Pediatrics Anemia Anemia is a condition [...] Follow these instructions at home: ??? Take dscy-zxq-sjfzojq and prescription medicines only as told by [...] 04/29/2005 Document Revised: 04/23/2017 Document Reviewed: 04/23/2017 [employer] Interactive Patient Education ? 2019 [employer]. documented in this encounter Plan of Treatment Not on file documented as of this encounter Visit Diagnoses Not on filedocumented in this encounter Care Teams Net Trainer Relationship Specialty Start Date End Date [...]
--- OUTSIDE RECORDS SUMMARY | 2025-02-22 10:06 | XMS_ITS | Encounter Summary ---
Author Organization [employer] ([place], [place], [place], [place], [place]) Address [address] [place] [address] Care Team Providers Care Gate Supervisor Name Role Phone Juan José Kendall MD Primary Care Provider + [phone] Juan José Kendall MD Unavailable [phone] Encounter Details Date Type Department Care Team (Late st Contact Info) Description 01/30/2019 Transcribed Document [facility] [place] [facility] [place] [address] Laurie Garcia MD [address] [place] [address] Social History Tobacco Use Types Packs/Day Years Used Date Smoking Tobacco: Never Assessed Comments Unknown Sex and Gender Information Value Date Recorded Sex Assigned at Not on file Legal Sex Female 2:23 PM CDT Gender Identity Not on file Sexual Orientation Not on file documented as of this encounter Miscellaneous Notes * Cerner Conversion Note - Historical MD Jose - 01/30/2019 6:19 PM CDT DATE OF PROCEDURE: 01/30/2019 SURGEON: Shay Guerrero MD PREOPERATIVE DIAGNOSIS: 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 PROCEDURE: Patellar tendon reconstruction with polypropylene mesh graft along with innate tissue repair. RECOVERY COORDINATOR: José Luis Cloud. DESCRIPTION OF PROCEDURE: Patient [...] with multiple interrupted nylon sutures using a nzc-jjqz-agnw-far repair followed by mihaela. The wound was [...] to the recovery room in satisfactory condition. /[id number] MD BANDAR [employer]/AQ / BANDAR / MODL /[id number] Electronically signed by Aleks [facility] Conversion Payroll Assistant Cerner at 07/24/2022 3:41 PM CDT documented in this encounter Plan of Treatment Not on file documented as of this encounter Visit Diagnoses Not on filedocumented in this encounter Care Teams Gate Supervisor Relationship Specialty Start Date End Date Juan José Kendall MD [address] [facility] [address] [place] [phone] PCP - General Family Medicine 12/25/22 Juan José Kendall MD [address] [facility] [address] [place] [address] Referring Physician Family Medicine 12/25/22 documented as of this encounter
--- OUTSIDE RECORDS SUMMARY | 2025-02-22 10:07 | XMS_ITS | Encounter Summary ---
Author Organization [employer] ([place], [place], [place], [place], [place]) Address [address] [place] [address] Care Team Providers Care Explosive Operator Bomb Name Role Phone Juan José Kendall MD Primary Care Provider +- [phone] Juan José Kendall MD Unavailable [phone] Encounter Details Date Type Department Care Team (Late st Contact Info) Description 10/06/2018 Transcribed Document [facility] [place] [facility] [place] [address] ProviderLaurie MD [address] [place] [address] Social History Tobacco Use Types Packs/Day Years Used Date Smoking Tobacco: Never Assessed Comments Unknown Sex and Gender Information Value Date Recorded Sex Assigned at Not on file Legal Sex Female 2:23 PM CDT Gender Identity Not on file Sexual Orientation Not on file documented as of this encounter Miscellaneous Notes * Cerner Conversion Note - Laurie Garcia MD - 10/06/2018 2:58 PM CDT Nursing Discharge [...] - 10/06/2018 14:58 EDT Electronically signed by [facility] Conversion Electrical Logger Cerner at 07/24/2022 3:59 PM CDT documented in this encounter Plan of Treatment Not on file documented as of this encounter Visit Diagnoses Not on filedocumented in this encounter Care Teams Explosive Operator Bomb Relationship Specialty Start Date End Date Juan José Kendall MD [address] [facility] [address] [place] [address] PCP - General Family Medicine 12/25/22 Juan José Kendall MD [address] [place] [facility] [address] [place] [address] Referring Physician Family Medicine 12/25/22 documented as of this encounter
--- OUTSIDE RECORDS SUMMARY | 2025-02-22 10:07 | XMS_ITS | Encounter Summary ---
Author Organization [employer] ([place], [place], [place], [place], [place]) Address [address] [place] [address] Care Team Providers Care Zigzag Appliquer Name Role Phone Juan José Kendall MD Primary Care Provider + [phone] Juan José Kendall MD Unavailable [phone] Encounter Details Date Type Department Care Team (Late st Contact Info) Description 10/06/2018 Transcribed Document [facility] [place] [address] [place] [address] ProviderLaurie MD [address] [place] [address] Social History Tobacco Use Types Packs/Day Years [...] Reviewed : Yes Anna Lowe, Rn - 10/06/2018 6:02 EDT documented in this encounter Plan of Treatment Not on file documented as of this encounter Visit Diagnoses Not on filedocumented in this encounter Care Teams Zigzag Appliquer Relationship Specialty Start Date End Date Juan José Kendall MD [address] [place] [address] PCP - General Family Medicine 12/25/22 Juan José Kendall MD [address] [place] [phone] Referring Physician Family Medicine 12/25/22 documented as of this encounter
--- OUTSIDE RECORDS SUMMARY | 2025-02-22 10:07 | XMS_ITS | Encounter Summary ---
Author Organization [employer] ([place], [place], [place], [place], [place]) Address [address] [place] [address] Care Team Providers Care Client Success Director Name Role Phone Juan José Kendall MD Primary Care Provider + [phone] Juan José Kendall MD Unavailable [phone] Encounter Details Date Type Department Care Team (Late st Contact Info) Description 09/26/2018 Transcribed Document [facility] [place] Medicine [address] [place] [address] ProviderLaurie MD [address] [place] [address] Social History Tobacco Use Types Packs/Day Years [...] Performed On: 09/26/2018 5:00 EDT by Angy Esqueda, Rn Chart Check Powerplans Initiated/Discontinued as Appropriate : Yes All Active Orders Reviewed : Yes Angy Esqueda, Emeli - 09/26/2018 4:02 EDT documented in this encounter Plan of Treatment Not on file documented as of this encounter Visit Diagnoses Not on filedocumented in this encounter Care Teams Client Success Director Relationship Specialty Start Date End Date Juan José Kendall MD [address] [place] [address] PCP - General Family Medicine 12/25/22 Juan José Kendall MD [address] [place] [address] Referring Physician Family Medicine 12/25/22 documented as of this encounter
--- OUTSIDE RECORDS SUMMARY | 2025-02-22 10:07 | XMS_ITS | Encounter Summary ---
Author Organization [employer] ([place], [place], [place], [place], [place]) Address [address] [place] [address] Care Team Providers Care Lathe Sander Name Role Phone Juan José Kendall MD Primary Care Provider + [phone] Juan José Kendall MD Unavailable +[phone] Encounter Details Date Type Department Care Team (Late st Contact Info) Description 09/26/2018 Transcribed Document [facility] [place] [address] [place] [address] ProviderLaurie MD [address] [place] [address] Social History Tobacco Use Types Packs/Day Years [...] filedocumented in this encounter Care Teams Lathe Sander Relationship Specialty Start Date End Date Juan José Kendall MD [address] [place] [address] PCP - General Family Medicine 12/25/22 Juan José Kendall MD [address] [place] [address] Referring Physician Family Medicine 12/25/22 documented as of this encounter
--- OUTSIDE RECORDS SUMMARY | 2025-02-22 10:07 | XMS_ITS | Encounter Summary ---
Author Organization [employer] ([place], [place], [place], [place], [place]) Address [address] [place] [address] Care Team Providers Care Campus Police Officer Name Role Phone Juan José Kendall MD Primary Care Provider + [phone] Juan José Kendall MD Unavailable [phone] Encounter Details Date Type Department Care Team (Late st Contact Info) Description 09/26/2018 Transcribed Document [facility] [place] Family Medicine [address] [place] [address] ProviderLaurie MD [address] [place] [address] Social History Tobacco Use Types Packs/Day Years [...] filedocumented in this encounter Care Teams Campus Police Officer Relationship Specialty Start Date End Date Juan José Kendall MD [address] [place] [address] PCP - General Family Medicine 12/25/22 Juan José Kendall MD [address] [place] [address] [place] [address] Referring Physician Family Medicine 12/25/22 documented as of this encounter
--- OUTSIDE RECORDS SUMMARY | 2025-02-22 10:07 | XMS_ITS | Encounter Summary ---
Author Organization [employer] ([place], [place], [place], [place], [place]) Address [address] [place] [address] Care Team Providers Care Chief Medical Technologist Name Role Phone Juan José Kendall MD Primary Care Provider +- [phone] Juan José Kendall MD Unavailable [phone] Encounter Details Date Type Department Care Team (Late st Contact Info) Description 10/06/2018 Transcribed Document [facility] [place] Family Medicine [address] [place] [address] ProviderLaurie MD [address] [place] [address] Social History Tobacco Use Types Packs/Day Years Used Date Smoking Tobacco: Never Assessed Comments Unknown Sex and Gender Information Value Date Recorded Sex Assigned at Not on file Legal Sex Female 2:23 PM CDT Gender Identity Not on file Sexual Orientation Not on file documented as of this encounter Miscellaneous Notes * Cerner Conversion Note - Laurie Garcia MD - 10/06/2018 9:00 AM CDT Pain Assessment [...] Intensity : 3 Lisa Haile RN - 10/06/2018 11:05 EDT Image 4 - Images currently included in the form version of this document have not been included in the text rendition version of the form. documented in this encounter Plan of Treatment Not on file documented as of this encounter Visit Diagnoses Not on filedocumented in this encounter Care Teams Chief Medical Technologist Relationship Specialty Start Date End Date Juan José Kendall MD [address] [facility] [address] [place] [address] PCP - General Family Medicine 12/25/22 Juan José Kendall MD [address] [facility] [address] [place] [address] Referring Physician Family Medicine 12/25/22 documented as of this encounter
--- OUTSIDE RECORDS SUMMARY | 2025-02-22 10:07 | XMS_ITS | Encounter Summary ---
Author Organization [employer] ([place], [place], [place], [place], [place]) Address [address] [place] [address] Care Team Providers Care Architectural Draftsman Name Role Phone Juan José Kendall MD Primary Care Provider +- [phone] Juan José Kendall MD Unavailable [phone] Encounter Details Date Type Department Care Team (Late st Contact Info) Description 09/26/2018 Transcribed Document [facility] [place] Family Medicine [address] [place] [address] ProviderLaurie MD [address] [place] [address] Social History Tobacco Use Types Packs/Day Years Used Date Smoking Tobacco: Never Assessed Comments Unknown Sex and Gender Information Value Date Recorded Sex Assigned at Not on file Legal Sex Female 2:23 PM CDT Gender Identity Not on file Sexual Orientation Not on file documented as of this encounter Miscellaneous Notes * Cerner Conversion Note - Laurie ProviderMD - 09/26/2018 2:00 AM CDT Family Support Worker Details Entered On: 09/26/2018 4:02 EDT Performed [...] 09/26/2018 4:01 EDT Electronically signed by Aleks [facility] Conversion Motor Vehicle Dispatcher Cerner at 07/24/2022 3:51 PM CDT documented in this encounter Plan of Treatment Not on file documented as of this encounter Visit Diagnoses Not on filedocumented in this encounter Care Teams Architectural Draftsman Relationship Specialty Start Date End Date Juan José Kendall MD [address] [facility] [address] [place] [address] PCP - General Family Medicine 12/25/22 Juan José Kendall MD 1210 [facility] [address] [place] [address] Referring Physician Family Medicine 12/25/22 documented as of this encounter
--- OUTSIDE RECORDS SUMMARY | 2025-02-22 10:07 | XMS_ITS | Encounter Summary ---
Author Organization [employer] ([place], [place], [place], [place], [place]) Address [address] [place] [address] Care Team Providers Care Web Services Professional Name Role Phone Juan José Kendall MD Primary Care Provider +- [phone] Juan José Kendall MD Unavailable [phone] Encounter Details Date Type Department Care Team (Late st Contact Info) Description 09/26/2018 Transcribed Document [facility] [place] Family Medicine [address] [place] [address] ProviderLaurie MD [address] [place] [address] Social History Tobacco Use Types Packs/Day Years Used Date Smoking Tobacco: Never Assessed Comments Unknown Sex and Gender Information Value Date Recorded Sex Assigned at Not on file Legal Sex Female 2:23 PM CDT Gender Identity Not on file Sexual Orientation Not on file documented as of this encounter Miscellaneous Notes * Cerner Conversion Note - Laurie ProviderMD - 09/26/2018 3:00 PM CDT Pain [...] form. Electronically signed by Adia Fink Conversion Configuration Management Consultant Cerner at 07/24/2022 3:39 PM CDT documented in this encounter Plan of Treatment Not on file documented as of this encounter Visit Diagnoses Not on filedocumented in this encounter Care Teams Web Services Professional Relationship Specialty Start Date End Date Juan José Kendall MD 12[address] [facility] [address] [place] [address] PCP - General Family Medicine 12/25/22 [place] [address] [place] [address] [address] [place] [address] Referring Physician Family Medicine 12/25/22 documented as of this encounter
--- OUTSIDE RECORDS SUMMARY | 2025-02-22 10:07 | XMS_ITS | Encounter Summary ---
Author Organization [employer] ([place], [place], [place], [place], [place]) Address [address] [place] [address] Care Team Providers Care Yarder Puncher Name Role Phone Juan José Kendall MD Primary Care Provider + [phone] Juan José Kendall MD Unavailable [phone] Encounter Details Date Type Department Care Team (Late st Contact Info) Description 10/06/2018 Transcribed Document [facility] [place] Family Medicine [address] [place] [address] ProviderLaurie MD [address] [place] [address] Social History Tobacco Use Types Packs/Day Years [...] 10/06/2018 11:36 AM CDT CareSet Assessment Discharge, [facility] Entered On: 10/06/2018 12:12 EDT Performed On: [...] Lisa Rees RN - 10/06/2018 12:09 EDT documented in this encounter Plan of Treatment Not on file documented as of this encounter Visit Diagnoses Not on filedocumented in this encounter Care Teams Yarder Puncher Relationship Specialty Start Date End Date [...]
--- OUTSIDE RECORDS SUMMARY | 2025-02-22 10:07 | XMS_ITS | Encounter Summary ---
Author Organization [employer] ([place], [place], [place], [place], [place]) Address [address] [place] [address] Care Team Providers Care Construction Equipment Overhauler Name Role Phone Juan José Kendall MD Primary Care Provider +- [phone] Juan José Kendall MD Unavailable [phone] Encounter Details Date Type Department Care Team (Late st Contact Info) Description 10/06/2018 Transcribed Document [facility] [place] [address] [place] [address] ProviderLaurie MD [address] [place] [address] Social History Tobacco Use Types Packs/Day Years Used Date Smoking Tobacco: Never Assessed Comments Unknown Sex and Gender Information Value Date Recorded Sex Assigned at Not on file Legal Sex Female 2:23 PM CDT Gender Identity Not on file Sexual Orientation Not on file documented as of this encounter Miscellaneous Notes * Byron Conversion Note - Laurie ProviderMD - 10/06/2018 2:00 AM CDT Lumber Sorter Machine Details Entered On: 10/06/2018 1:13 EDT Performed On: 10/06/2018 2:00 EDT by Anna Lowe Rn Order Details Transport Mode Order Detail : Stretcher/Gurney Isolation Precautions Order Detail : Standard Precautions Order Detail : 0 IV Order Detail : 0 Oxygen Order Detail : 0 Nurse Collect Order Detail : 1 Lift/Transfer : Maximal assist Central Line Order Detail : No Room Service : Appropriate Arterial Line : No Anna Lowe Rn - 10/06/2018 1:12 EDT Electronically signed by Aleks [facility] Conversion Crew Mess Attendant Cerner at 07/24/2022 3:39 PM CDT documented in this encounter Plan of Treatment Not on file documented as of this encounter Visit Diagnoses Not on filedocumented in this encounter Care Teams Construction Equipment Overhauler Relationship Specialty Start Date End Date Juan José Kendall MD [address] [facility] [address] [place] [address] PCP - General Family Medicine 12/25/22 Juan José Kendall MD [address] [facility] [address] [place] [address] Referring Physician Family Medicine 12/25/22 documented as of this encounter
--- OUTSIDE RECORDS SUMMARY | 2025-02-22 10:08 | XMS_ITS | Encounter Summary ---
Author Organization [employer] ([place], [place], [place], [place], [place]) Address [address] [place] [address] Care Team Providers Care Repair Department Supervisor Name Role Phone Juan José Kendall MD Primary Care Provider + [phone] Juan José Kendall MD Unavailable [phone] Encounter Details Date Type Department Care Team (Late st Contact Info) Description 10/07/2018 Transcribed Document [facility] [place] [address] [place] [address] ProviderLaurie MD [address] [place] [address] Social History Tobacco Use Types Packs/Day Years Used Date Smoking Tobacco: Never Assessed Comments Unknown Sex and Gender Information Value Date Recorded Sex Assigned at Not on file Legal Sex Female 2:23 PM CDT Gender Identity Not on file Sexual Orientation Not on file documented as of this encounter Miscellaneous Notes * Cerner Conversion Note - Laurie ProviderMD - 10/07/2018 8:12 AM CDT Discharge Summary, PT Entered On: 10/07/2018 8:14 EDT Performed On: 10/07/2018 8:12 EDT by TONIE SHELLEY, PT Discharge Summary Reason for Discharge : Discharged from hospital Discharged to, Therapy : Unit, fpc Discharge Summary Comment, PT : Pt discharged [...] TONIE SHELLEY, PT - 10/07/2018 8:12 EDT [employer] Goals Mobility/Bed Mobility LTG PT Grid Goal [...] modified Supervision or set-up Equipment : Other: ghada Rwx Other: w/c to bed Date to Meet : 11/01/2018 EDT 10/17/2018 EDT 10/17/2018 EDT Goal Status : Not met Not met Not met Comment : TTWB LLE, Re-assess 10/04 new goal 10/03/18 new goal 10/03/18 TONIE SHELLEY, PT - 10/07/2018 8:12 EDT TONIE SHELLEY, PT - 10/07/2018 8:12 EDT TONIE SHELLEY, PT - 10/07/2018 8:12 EDT Electronically signed by Aleks [facility] Thelma Countersinker Byron at 07/24/2022 3:54 PM CDT documented in this encounter Plan of Treatment Not on file documented as of this encounter Visit Diagnoses Not on filedocumented in this encounter Care Teams Repair Department Supervisor Relationship Specialty Start Date End Date Juan José Kendall MD 1210 [facility] [address] [place] [address] PCP - General Family Medicine 12/25/22 Juan José Kendall MD [facility] [address] [place] [address] Referring Physician Family Medicine 12/25/22 documented as of this encounter
--- OUTSIDE RECORDS SUMMARY | 2025-02-22 10:08 | XMS_ITS | Encounter Summary ---
Author Organization [employer] ([place], [place], [place], [place], [place]) Address [address] [place] [address] Care Team Providers Care Baseboard Heating Installer Name Role Phone Romulo Kendall MD Primary Care Provider + [phone] Romulo Kendall MD Unavailable [phone] Encounter Details Date Type Department Care Team (Late st Contact Info) Description 10/06/2018 Transcribed Document [facility] [place] [address] [place] [address] ProviderLaurie MD [address] [place] [address] Social History Tobacco Use Types [...] Garcia MD - 10/06/2018 12:16 PM CDT [address] [address] TRUDI BLAIR URMILA :1955 Visit Time:10/05/2018 Your Visit Summary Your Care Team Admitting Physician - JONES HIDALGO MD-INT Attending Physician - JONES HIDALGO MD-INT Primary Care Physician - ROMULO KNEDALL (REF)MD Referring Physician - JONES HIDALGO MD-INT Your Diagnosis Acute kidney injury resolved Anemia [...] From Your Care Team Discharge 10/06/2018 to [facility] ([facility]) Call report to [phone] Fax DC summary to [phone] Discharge Activity: As per Dr. Santacruz recommendations, Discharge Activity: Other (use Special Instructions) Diet: Discharge Diet: Resume usual diet as tolerated Follow-Up Appointments Follow Up with ABIEL ROBLES MD-ORT When 10/25/2018 10:30 AM EDT Comments Recommendations for knee fusion/amputation Where: [address] [place] [address]- Follow Up with AMRITA BARNARD When 10/19/2018 01:15 PM EDT Where: [address] [facility] [place] [address]- Business (1) Follow Up with JONG SANTACRUZ MD-ORT When Within 6 weeks Comments Family/facility to call for follow-up appointment after seen by Dr. Robles Where: [address] [facility] [address] [place] [address]- Medications What How Much When [...] 02/05/2006 Document Revised: 08/27/2016 Document Reviewed: 11/16/2014 [employer] Interactive Patient Education ?? 2019 [employer] Anemia Anemia is a condition in [...] Follow these instructions at home: ??? Take oiii-kkf-hoitfuf and prescription medicines only as told by [...] 04/29/2005 Document Revised: 04/23/2017 Document Reviewed: 04/23/2017 [employer] Patient Education ?? 2019 [employer] Emergency Awareness and Preventative Care STROKE [...] Assistance with quitting is available by contacting 5-526-RIPCNOW. This is a free resource providing counseling, support, and referral. Or you may contact your personal physician. [place] Suicide Prevention Lifeline: The National Suicide Prevention [...] range between ( 0.0 and 7.0 ) [place] #: 0.62 K/uL -- Normal range between ( 0.16 and 1.00 ) [place] #: 0.39 x10(3)/uL -- Normal range between ( 0.00 and 0.80 ) [place] %: 10.5 % -- Normal range between [...] was given the opportunity to ask questions. Patient/Cartographic Engineer Name: Patient/Cartographic Engineer Signature: Relationship to Patient: Clinician/Hospital Cartographic Engineer Signature: Date: Electronically signed by Aleks [facility] Conversion Oil Field Pipeline Supervisor Cecener at 07/24/2022 3:52 PM CDT documented in this encounter Plan of Treatment Not on file documented as of this encounter Visit Diagnoses Not on filedocumented in this encounter Care Teams Baseboard Heating Installer Relationship Specialty Start Date End Date Romulo Kendall MD [address] [facility] [address] [place] [address] PCP - General Family Medicine 12/25/22 Romulo Kendall MD [address] [place] [address] Referring Physician Family Medicine 12/25/22 documented as of this encounter
--- OUTSIDE RECORDS SUMMARY | 2025-02-22 10:08 | XMS_ITS | Encounter Summary ---
Author Organization [employer] ([place], [place], [place], [place], [place]) Address [address] [place] [address] Care Team Providers Care Platinum Smith Name Role Phone Juan José Kendall MD Primary Care Provider +- [phone] Juan José Kendall MD Unavailable [phone] Encounter Details Date Type Department Care Team (Late st Contact Info) Description 09/26/2018 Transcribed Document [facility] [place] Family Medicine [address] [place] [address] ProviderLaurie MD [address] [place] [address] Social History Tobacco Use Types Packs/Day Years Used Date Smoking Tobacco: Never Assessed Comments Unknown Sex and Gender Information Value Date Recorded Sex Assigned at Not on file Legal Sex Female 2:23 PM CDT Gender Identity Not on file Sexual Orientation Not on file documented as of this encounter Miscellaneous Notes * Cerner Conversion Note - Laurie ProviderMD - 09/26/2018 9:00 AM CDT Pain [...] on filedocumented in this encounter Care Teams Platinum Smith Relationship Specialty Start Date End Date Juan José Kendall MD 12[address] [facility] [address] [place] [address] PCP - General Family Medicine 12/25/22 Juan José Kendall MD [address] [facility] [address] [place] [address] Referring Physician Family Medicine 12/25/22 documented as of this encounter
--- OUTSIDE RECORDS SUMMARY | 2025-02-22 10:09 | XMS_ITS | Encounter Summary ---
Author Organization [employer] ([place], [place], [place], [place], [place]) Address [address] [place] [address] Care Team Providers Care Ampoule Washing Machine Operator Name Role Phone Juan José Kendall MD Primary Care Provider + [phone] Juan José Kendall MD Unavailable [phone] Encounter Details Date Type Department Care Team (Late st Contact Info) Description 09/26/2018 Transcribed Document [facility] [place] Family Medicine [facility] [place] [address] Laurie Garcia MD [address] [place] [address] Social History Tobacco Use Types Packs/Day Years [...] inj 4 mg 2 mL, IV Push, [id number] pantoprazole EC 40 mg tab 40 mg [...] % LOW Lymph # 0.90 x10(3)/uL LOW [place] % 10.0 % [place] # 0.58 K/uL Eos % 7.4 % [...] on filedocumented in this encounter Care Teams Ampoule Washing Machine Operator Relationship Specialty Start Date End Date Juan José Kendall MD 12[address] [facility] [address] [place] [address] PCP - General Family Medicine 12/25/22 Juan José Kendall MD [address] [facility] [address] [place] [address] Referring Physician Family Medicine 12/25/22 documented as of this encounter
--- OUTSIDE RECORDS SUMMARY | 2025-02-22 10:09 | XMS_ITS | Encounter Summary ---
Author Organization [employer] ([place], [place], [place], [place], [place]) Address [address] [place] [address] Care Team Providers Care Waistband Setter Name Role Phone Juan José Kendall MD Primary Care Provider + [phone] Juan José Kendall MD Unavailable [phone] Encounter Details Date Type Department Care Team (Late st Contact Info) Description 09/16/2018 Transcribed Document [facility] [place] [address] [place] [address] ProviderLaurie MD [address] [place] [address] Social History Tobacco Use Types Packs/Day Years [...] BIJAL GALLOWAY, PT - 09/16/2018 10:15 EDT documented in this encounter Plan of Treatment Not on file documented as of this encounter Visit Diagnoses Not on filedocumented in this encounter Care Teams Waistband Setter Relationship Specialty Start Date End Date Juan José Kendall MD [address] [place] [address] PCP - General Family Medicine 12/25/22 Juan José Kendall MD [address] [place] [address] Referring Physician Family Medicine 12/25/22 documented as of this encounter
--- OUTSIDE RECORDS SUMMARY | 2025-02-22 10:09 | XMS_ITS | Encounter Summary ---
Author Organization [employer] ([place], [place], [place], [place], [place]) Address [address] [place] [address] Care Team Providers Care Lozenge Maker Name Role Phone Juan José Kendall MD Primary Care Provider +- [phone] Juan José Kendall MD Unavailable [phone] Encounter Details Date Type Department Care Team (Late st Contact Info) Description 01/31/2019 Transcribed Document [facility] [place] [address] [place] [address] ProviderLaurie MD [address] [place] [address] Social History Tobacco Use Types Packs/Day Years Used Date Smoking Tobacco: Never Assessed Comments Unknown Sex and Gender Information Value Date Recorded Sex Assigned at Not on file Legal Sex Female 2:23 PM CDT Gender Identity Not on file Sexual Orientation Not on file documented as of this encounter Miscellaneous Notes * Cerner Conversion Note - Laurie Garcia MD - 01/31/2019 2:00 PM CDT Pain Assessment [...] on filedocumented in this encounter Care Teams Lozenge Maker Relationship Specialty Start Date End Date Juan José Kendall MD [address] [facility] [address] [place] [address] PCP - General Family Medicine 12/25/22 Juan José Kendall MD [address] [place] [address] [address] [place] [address] Referring Physician Family Medicine 12/25/22 documented as of this encounter
--- OUTSIDE RECORDS SUMMARY | 2025-02-22 10:09 | XMS_ITS | Encounter Summary ---
Author Organization [employer] ([place], [place], [place], [place], [place]) Address [address] [place] [address] Care Team Providers Care Windows Deployment Technician Name Role Phone Juan José Kendall MD Primary Care Provider + [phone] Juan José Kendall MD Unavailable [phone] Encounter Details Date Type Department Care Team (Late st Contact Info) Description 10/06/2018 Transcribed Document [facility] [place] [address] [place] [address] ProviderLaurie MD [address] [place] [address] Social History Tobacco Use Types Packs/Day Years [...] on filedocumented in this encounter Care Teams Windows Deployment Technician Relationship Specialty Start Date End Date Juan José Kendall MD [address] [place] [address] [place] [address] PCP - General Family Medicine 12/25/22 Juan José Kendall MD [address] [place] [address] [place] [address] Referring Physician Family Medicine 12/25/22 documented as of this encounter
--- OUTSIDE RECORDS SUMMARY | 2025-02-22 10:09 | XMS_ITS | Encounter Summary ---
Author Organization [employer] ([place], [place], [place], [place], [place]) Address [address] [place] [address] Care Team Providers Care Optical Instrument Assembler Name Role Phone Juan José Kendall MD Primary Care Provider +- [phone] Juan José Kendall MD Unavailable [phone] Encounter Details Date Type Department Care Team (Late st Contact Info) Description 01/31/2019 Transcribed Document [facility] [place] Family Medicine [address] [place] [address] Laurie Garcia MD [address] [place] [address] Social History Tobacco Use Types Packs/Day Years Used Date Smoking Tobacco: Never Assessed Comments Unknown Sex and Gender Information Value Date Recorded Sex Assigned at Not on file Legal Sex Female 2:23 PM CDT Gender Identity Not on file Sexual Orientation Not on file documented as of this encounter Miscellaneous Notes * Cerner Conversion Note - Laurie Garcia MD - 01/31/2019 8:00 PM CDT Pain Assessment [...] filedocumented in this encounter Care Teams Optical Instrument Assembler Relationship Specialty Start Date End Date [...]
--- OUTSIDE RECORDS SUMMARY | 2025-02-22 10:09 | XMS_ITS | Encounter Summary ---
Author Organization [employer] ([place], [place], [place], [place], [place]) Address [address] [place] [address] Care Team Providers Care Fashion Photographer Name Role Phone Juan José Kendall MD Primary Care Provider +- [phone] Juan José Kendall MD Unavailable [phone] Encounter Details Date Type Department Care Team (Late st Contact Info) Description 09/15/2018 Transcribed Document [facility] [place] [address] [place] [address] ProviderLaurie MD [address] [place] [address] Social History Tobacco Use Types Packs/Day Years Used Date Smoking Tobacco: Never Assessed Comments Unknown Sex and Gender Information Value Date Recorded Sex Assigned at Not on file Legal Sex Female 2:23 PM CDT Gender Identity Not on file Sexual Orientation Not on file documented as of this encounter Miscellaneous Notes * Cerner Conversion Note - Laurie ProviderMD - 09/15/2018 3:00 AM CDT Pain [...] on filedocumented in this encounter Care Teams Fashion Photographer Relationship Specialty Start Date End Date Juan José Kendall MD [address] [facility] [address] [place] [address] PCP - General Family Medicine 12/25/22 Juan José Kendall MD [address] [facility] [address] [place] [address] Referring Physician Family Medicine 12/25/22 documented as of this encounter
--- OUTSIDE RECORDS SUMMARY | 2025-02-22 10:09 | XMS_ITS | Encounter Summary ---
Author Organization [employer] ([place], [place], [place], [place], [place]) Address [address] [place] [address] Care Team Providers Care Circulation Man Name Role Phone Juan José Kendall MD Primary Care Provider +- [phone] Juan José Kendall MD Unavailable [phone] Encounter Details Date Type Department Care Team (Late st Contact Info) Description 09/30/2018 Transcribed Document [facility] [place] Family Medicine [address] [place] [address] ProviderLaurie MD [address] [place] [address] Social History Tobacco Use Types Packs/Day Years Used Date Smoking Tobacco: Never Assessed Comments Unknown Sex and Gender Information Value Date Recorded Sex Assigned at Not on file Legal Sex Female 2:23 PM CDT Gender Identity Not on file Sexual Orientation Not on file documented as of this encounter Miscellaneous Notes * Cerner Conversion Note - Laurie ProviderMD - 09/30/2018 3:00 PM CDT Pain [...] on filedocumented in this encounter Care Teams Circulation Man Relationship Specialty Start Date End Date Juan José Kendall MD [address] [facility] [address] [place] [address] PCP - General Family Medicine 12/25/22 [place] [address] [place] [address] [address] [place] [address] Referring Physician Family Medicine 12/25/22 documented as of this encounter
--- OUTSIDE RECORDS SUMMARY | 2025-02-22 10:09 | XMS_ITS | Encounter Summary ---
Author Organization [employer] ([place], [place], [place], [place], [place]) Address [address] [place] [address] Care Team Providers Care Body Recall Instructor Name Role Phone Juan José Kendall MD Primary Care Provider + [phone] Juan José Kendall MD Unavailable [phone] Encounter Details Date Type Department Care Team (Late st Contact Info) Description 09/29/2018 Transcribed Document [facility] [place] Family Medicine [address] [place] [address] ProviderLaurie MD [address] [place] [address] Social History Tobacco Use Types Packs/Day Years Used Date Smoking Tobacco: Never Assessed Comments Unknown Sex and Gender Information Value Date Recorded Sex Assigned at Not on file Legal Sex Female 2:23 PM CDT Gender Identity Not on file Sexual Orientation Not on file documented as of this encounter Miscellaneous Notes * Cerner Conversion Note - Laurie ProviderMD - 09/29/2018 5:00 PM CDT Chart Check - Review Order Profile Entered On: 09/29/2018 17:49 EDT Performed On: 09/29/2018 17:00 EDT by FRANTZ BROWN, RN Chart Check Powerplans Initiated/Discontinued as Appropriate : Yes All Active Orders Reviewed : Yes FRANTZ BROWN, RN - 09/29/2018 17:49 EDT documented in this encounter Plan of Treatment Not on file documented as of this encounter Visit Diagnoses Not on filedocumented in this encounter Care Teams Body Recall Instructor Relationship Specialty Start Date End Date Juan José Kendall MD [address] [place] [address] PCP - General Family Medicine 12/25/22 Juan José Kendall MD [address] [place] [address] [place] [address] Referring Physician Family Medicine 12/25/22 documented as of this encounter
--- OUTSIDE RECORDS SUMMARY | 2025-02-22 10:09 | XMS_ITS | Encounter Summary ---
Author Organization [employer] ([place], [place], [place], [place], [place]) Address [address] [place] [address] Care Team Providers Care Double Reamer Operator Name Role Phone Juan José Kendall MD Primary Care Provider + [phone] Juan José Kendall MD Unavailable [phone] Encounter Details Date Type Department Care Team (Late st Contact Info) Description 09/29/2018 Transcribed Document [facility] [place] [facility] [place] [address] Laurie Garcia MD [address] [place] [address] Social History Tobacco Use Types Packs/Day Years Used Date Smoking Tobacco: Never Assessed Comments Unknown Sex and Gender Information Value Date Recorded Sex Assigned at Not on file Legal Sex Female 2:23 PM CDT Gender Identity Not on file Sexual Orientation Not on file documented as of this encounter Miscellaneous Notes * Cerner Conversion Note - Laurie ProviderMD - 09/29/2018 4:36 PM CDT Care Management Assessment/Plan Entered On: 09/29/2018 16:38 EDT Performed On: 09/29/2018 16:36 EDT by PJ NELSON Care Management Note Care Management Note : 09/29/2018 Per ID, abx therapy to stop 10/05/2018. Patient states she is open to rehab, but prefers it be close to her home in [place]. Referrals faxed to Debbie Patricia (Signature liaison), [facility], [facility], and [facility]. Awaiting a call back. Care Management Note Report : AMAURY NELSONEris - 09/28/18 16:26:43 09/28/2018 Fax recieved from [facility] with approval for LTACH services 09/29-10/04. Auth# [id number]. Fax next clinical review to [phone] on 10/05/2018. RASHEED NELSONRALPH - 09/28/18 08:24:24 09/28/2018 [facility][phone][facility] to request coverage for continued LTACH services. Approval pending. Auth# [id number]. RASHEED NELSONRALPH - 09/21/18 15:48:14 09/21/2018 Fax recieved from [facility] with approval for LTACH coverage 09/22/2018-09/28/2018. Auth# [id number]. Fax next clinical review to [phone] on 09/28/2018. NELSONPJ BELLO - 09/21/18 08:22:57 09/21/2018 Clinical review faxed to [facility] ([phone]) to request coverage for continued LTACH services. Approval pending. Auth# [id number]. RASHEED NELSONRALPH - 09/15/18 11:34:17 09/15/2018 Fax recieved from [facility] with approval for LTACH services 09/15-09/21/2018. Auth# [id number]. Fax next clinical review to [phone] on 09/21/2018. PJ NELSON - 09/14/18 08:28:49 09/14/2018 Clinical review faxed to [facility] ([phone]) to request coverage for continued LTACH services. Approval pending. Auth# [id number]. Chuyita Briceno, Clinical Assessment Liaison - 09/09/18 [...] Shay Guerrero [facility] [place] The patient does wish to return home upon discharge but understands that rehab/SNF may be needed. All papers were explained and signed. No other issues. CM will continue to monitor. Documentation Status Complete : Yes PJ NELSON - 09/29/2018 16:36 EDT documented in this encounter Plan of Treatment Not on file documented as of this encounter Visit Diagnoses Not on filedocumented in this encounter Care Teams Double Reamer Operator Relationship Specialty Start Date End Date Juan José Kendall MD [address] [facility] [address] [place] [address] PCP - General Family Medicine 12/25/22 Juan José Kendall MD [address] [facility] [address] [place] [address] Referring Physician Family Medicine 12/25/22 documented as of this encounter
--- OUTSIDE RECORDS SUMMARY | 2025-02-22 10:09 | XMS_ITS | Encounter Summary ---
Author Organization [employer] ([place], [place], [place], [place], [place]) Address [address] [place] [address] Care Team Providers Care Patient Transport Officer Name Role Phone Juan José Kendall MD Primary Care Provider + [phone] Juan José Kendall MD Unavailable [phone] Encounter Details Date Type Department Care Team (Late st Contact Info) Description 09/27/2018 Transcribed Document [facility] [place] [address] [place] [address] ProviderLaurie MD [address] [place], [place] [id number] Social History Tobacco Use Types Packs/Day Years [...] Performed On: 09/27/2018 5:00 EDT by Angy Esqueda, Rn Chart Check Powerplans Initiated/Discontinued as Appropriate : Yes All Active Orders Reviewed : Yes Angy Esqueda, Emeli - 09/27/2018 3:21 EDT documented in this encounter Plan of Treatment Not on file documented as of this encounter Visit Diagnoses Not on filedocumented in this encounter Care Teams Patient Transport Officer Relationship Specialty Start Date End Date Juan José Kendall MD [address] [place] [address] PCP - General Family Medicine 12/25/22 Juan José Kendall MD [address] [place] [address] Referring Physician Family Medicine 12/25/22 documented as of this encounter
--- OUTSIDE RECORDS SUMMARY | 2025-02-22 10:09 | XMS_ITS | Encounter Summary ---
Author Organization [employer] ([place], [place], [place], [place], [place]) Address [address] [place] [address] Care Team Providers Care Trestleman Name Role Phone Juan José Kendall MD Primary Care Provider + [phone] Juan José Kendall MD Unavailable [phone] Encounter Details Date Type Department Care Team (Late st Contact Info) Description 01/31/2019 Transcribed Document [facility] [place] Family Medicine [address] [place] [address] Laurie Garcia MD [address] [place] [address] Social History Tobacco Use Types Packs/Day Years [...] mg cap 200 mg 1 Cap, Oral, [id number] enoxaparin 40 mg/0.4 mL inj 40 mg [...] Topical, Daily phenol 1.4% throat spray 5 [place], Oral, Q2H scopolamine 1.5 mg/72 hr patch [...] on filedocumented in this encounter Care Teams Trestleman Relationship Specialty Start Date End Date Juan José Kendall MD [address] [place] [address] PCP - General Family Medicine 12/25/22 Juan José Kendall MD [address] [place] [address] Referring Physician Family Medicine 12/25/22 documented as of this encounter
--- OUTSIDE RECORDS SUMMARY | 2025-02-22 10:10 | XMS_ITS | Encounter Summary ---
Author Organization [employer] ([place], [place], [place], [place], [place]) Address [address] [place] [address] Care Team Providers Care Safety Teacher Name Role Phone Juan José Kendall MD Primary Care Provider + [phone] Juan José Kendall MD Unavailable [phone] Encounter Details Date Type Department Care Team (Late st Contact Info) Description 01/31/2019 Transcribed Document [facility] [place] [address] [place] [address] ProviderLaurie MD [address] [place] [address] Social History Tobacco Use Types Packs/Day Years Used Date Smoking Tobacco: Never Assessed Comments Unknown Sex and Gender Information Value Date Recorded Sex Assigned at Not on file Legal Sex Female 2:23 PM CDT Gender Identity Not on file Sexual Orientation Not on file documented as of this encounter Miscellaneous Notes * Cerner Conversion Note - Laurie ProviderMD - 01/31/2019 5:00 AM CDT Chart Check - Review Order Profile Entered On: 01/31/2019 4:52 EDT Performed On: 01/31/2019 5:00 EDT by Dayday Crump RN Chart Check Powerplans Initiated/Discontinued as Appropriate : Yes All Active Orders Reviewed : Yes Dayday Crump RN - 01/31/2019 4:52 EDT documented in this encounter Plan of Treatment Not on file documented as of this encounter Visit Diagnoses Not on filedocumented in this encounter Care Teams Safety Teacher Relationship Specialty Start Date End Date Juan José Kendall MD [address] [place] [address] PCP - General Family Medicine 12/25/22 Juan José Kendall MD [address] [place] [address] Referring Physician Family Medicine 12/25/22 documented as of this encounter
--- OUTSIDE RECORDS SUMMARY | 2025-02-22 10:10 | XMS_ITS | Encounter Summary ---
Author Organization [employer] ([place], [place], [place], [place], [place]) Address [address] [place] [address] Care Team Providers Care Facility Maintenance Manager Name Role Phone Juan José Kendall MD Primary Care Provider + [phone] Juan José Kendall MD Unavailable [phone] Encounter Details Date Type Department Care Team (Late st Contact Info) Description 09/15/2018 Transcribed Document [facility] [place] [facility] [place] [address] ProviderLaurie MD [address] [place] [address] Social History Tobacco Use Types Packs/Day Years [...] getting wound care. She was transferred to [facility] today for a higher level of care. [...] HTN Cancer Social History: . lives in [place]. No tobacco, ETOH, or illicit drug use. Social & Psychosocial Habits Alcohol 06/23/2018 Alcohol Use History, Social Habits No Substance Abuse 06/23/2018 Recreational Drug Use History No Tobacco 06/23/2018 Smoking Status Never (less than 100 in l Smokeless Tobacco Status Never Objective: Vitals Signs (last 24 hrs) Last Charted Minimum Maximum Temp 98.2 (SEP 15 07:00) 98.2 (SEP 15 07:00) 98.4 (SEP 14:00) Apical HR 64 (SEP 15:) 64 (SEP 15:) 64 (SEP 15:) Mon HR 64 (SEP 15:00) 64 (SEP 15:00) 81 (SEP 14:00) Resp Rate 20 (SEP 15 07:00) 16 (SEP 14:00) 20 (SEP 15:00) SBP 139 (SEP 15 09:01) 125 (SEP 14 23:00) H 149 (SEP 14:00) DBP 62 (SEP 15 09:01) 62 (SEP 15 07:00) 70 (SEP 14 19:00) SpO2 98 (SEP 15 07:00) L 93 (SEP 14 19:00) 100 (SEP 14 23:00) PE: General: patient [...] 10) Cl H 113 (EDGARD 13) 112 (EDGARD 12) H 113 (EDGARD 11) [...] ALB L 2.6 (EDGARD 10) L 3.3 (SEP 09) *labs (PowerNote [...] with her today Electronically signed by [facility] Conversion Motor Operator Cerner at 07/24/2022 3:58 PM CDT documented in this encounter Plan of Treatment Not on file documented as of this encounter Visit Diagnoses Not on filedocumented in this encounter Care Teams Facility Maintenance Manager Relationship Specialty Start Date End Date Juan José Kendall MD [address] [facility] [address] [place] [address] PCP - General Family Medicine 12/25/22 Juan José Kendall MD [address] [place] [facility] [address] [place] [address] Referring Physician Family Medicine 12/25/22 documented as of this encounter
--- OUTSIDE RECORDS SUMMARY | 2025-02-22 10:10 | XMS_ITS | Encounter Summary ---
Author Organization [employer] ([place], [place], [place], [place], [place]) Address [address] [place] [address] Care Team Providers Care Millroom Supervisor Name Role Phone Juan José Kendall MD Primary Care Provider + [phone] Juan José Kendall MD Unavailable [phone] Encounter Details Date Type Department Care Team (Late st Contact Info) Description 09/29/2018 Transcribed Document [facility] [place] [address] [place] [address] ProviderLaurie MD [address] [place], [place] [id number] Social History Tobacco Use Types Packs/Day Years Used Date Smoking Tobacco: Never Assessed Comments Unknown Sex and Gender Information Value Date Recorded Sex Assigned at Not on file Legal Sex Female 2:23 PM CDT Gender Identity Not on file Sexual Orientation Not on file documented as of this encounter Miscellaneous Notes * [employer] Conversion Note - Historical ProviderMD - 09/29/2018 12:11 PM CDT Event Note Entered On: 09/29/2018 12:13 EDT Performed On: 09/29/2018 12:11 EDT by FRANTZ BROWN RN Event Note Event Date/Time : 09/29/2018 10:00 EDT Description of Event : Called and left message with Dr Guerrero's nurse Ghada [phone] ext. [phone] reguarding when mihaela can be removed from left knee. awaiting call back. FRANTZ BROWN RN - 09/29/2018 12:11 EDT Electronically signed by Aleks [facility] Conversion Nut Roaster Helper Cerner at 07/24/2022 3:47 PM CDT documented [...]
--- OUTSIDE RECORDS SUMMARY | 2025-02-22 10:10 | XMS_ITS | Encounter Summary ---
Author Organization [employer] ([place], [place], [place], [place], [place]) Address [address] [place] [address] Care Team Providers Care Anesthesiologist Name Role Phone Juan José Kendall MD Primary Care Provider + [phone] Juan José Kendall MD Unavailable [phone] Encounter Details Date Type Department Care Team (Late st Contact Info) Description 09/16/2018 Transcribed Document [facility] [place] Family Medicine [address] [place] [address] ProviderLaurie MD [address] [place] [address] Social History Tobacco Use Types Packs/Day Years Used Date Smoking Tobacco: Never Assessed Comments Unknown Sex and Gender Information Value Date Recorded Sex Assigned at Not on file Legal Sex Female 2:23 PM CDT Gender Identity Not on file Sexual Orientation Not on file documented as of this encounter Miscellaneous Notes * Cerner Conversion Note - Historical MD Jose - 09/16/2018 3:00 AM CDT Nutrition Assessment Entered On: 09/16/2018 12:31 EDT Performed On: 09/16/2018 14:28 EDT by Kentrell Coker Administration Nutrition Assessment Current Nutrition Regimen Comment : [...] RN agreeable, plans to weigh pt today. 6/10: Per MD note, pt has had nausea [...] loss encouraged Nutrition Care Level : Low Kentrell Coker, Thao - 09/16/2018 13:20 EDT Electronically signed by [facility], [facility] Conversion Upholstery Repairer Cerner at 07/24/2022 3:46 PM CDT documented in this encounter Plan of Treatment Not on file documented as of this encounter Visit Diagnoses Not on filedocumented in this encounter Care Teams Anesthesiologist Relationship Specialty Start Date End Date Juan José Kendall MD [address] [facility] [address] [place] [address] PCP - General Family Medicine 12/25/22 Juan José Kendall MD [address] [facility] [address] [place] [address] Referring Physician Family Medicine 12/25/22 documented as of this encounter
--- OUTSIDE RECORDS SUMMARY | 2025-02-22 10:10 | XMS_ITS | Encounter Summary ---
Author Organization [employer] ([place], [place], [place], [place], [place]) Address [address] [place] [address] Care Team Providers Care Integration Analyst Name Role Phone Juan José Kendall MD Primary Care Provider +- [phone] Juan José Kendall MD Unavailable [phone] Encounter Details Date Type Department Care Team (Late st Contact Info) Description 09/16/2018 Transcribed Document [facility] [place] Family Medicine [place] [address] ProviderLaurie MD [address] [place] [address] Social History Tobacco Use Types Packs/Day Years [...] on vancomycin. SCr remains 1.4-1.6 since at [facility]. 3. Abx planned until 10/05 per ID. 4. Pharmacy will continue to follow. Thank you for the consultation, Bethany Mo PharmD Electronically signed by Aleks [facility] Conversion Diamond Polisher Cerner at 07/24/2022 3:38 PM CDT documented in this encounter Plan of Treatment Not on file documented as of this encounter Visit Diagnoses Not on filedocumented in this encounter Care Teams Integration Analyst Relationship Specialty Start Date End Date Juan José Kendall MD [address] [facility] [address] [place] [address] PCP - General Family Medicine 12/25/22 Juan José Kendall MD [address] [facility] [address] [place] [address] Referring Physician Family Medicine 12/25/22 documented as of this encounter
--- OUTSIDE RECORDS SUMMARY | 2025-02-22 10:10 | XMS_ITS | Encounter Summary ---
Author Organization [employer] ([place], [place], [place], [place], [place]) Address [address] [place] [address] Care Team Providers Care Pretzel Twisting Machine Operator Name Role Phone Juan José Kendall MD Primary Care Provider +- [phone] Juan José Kendall MD Unavailable [phone] Encounter Details Date Type Department Care Team (Late st Contact Info) Description 01/31/2019 Transcribed Document [facility] [place] [address] [place] [address] ProviderLaurie MD [address] [place] [address] Social History Tobacco Use Types Packs/Day Years [...] 02/01/2019 13:27 EDT Assisted by, OT : payroll assistant (PRESSING DEPARTMENT SUPERVISOR) JOYA MUNGUIA OTR/L - 02/01/2019 13:23 EDT [...] x1 w/HOB elevated + use of leg boiler erector; cues for sequencing/hand placement [JOYA MUNGUIA OTR/L - 02/01/2019 13:27 EDT] [...] : Continue with OT POC. JOYA MUNGUIA OTR/L - 02/01/2019 13:27 EDT Hvac Design Mechanical Engineer Goals, OT Other LTG Grid Goal #1 [...] Total A with pericare on 02/01/19 JOYA MUNGUIA OTR/Ivan - 02/01/2019 13:27 EDT JOYA MUNGUIA OTR/L - 02/01/2019 13:27 EDT Treatment Note Subjective [...] Pt reported knee pain; RN aware. JOYA MUNGUIA OTR/L - 02/01/2019 13:27 EDT Image 1 - Images currently included in the form version of this document have not been included in the text rendition version of the form. Anticipated Discharge Needs, OT/PT Anticipated Discharge to : Other: TBD Recommend Continued Therapy at Discharge : Yes JOYA MUNGUIA OTR/L - 02/01/2019 13:[address] [facility] OT Charges OT Selfcare/Hm Mgmt Ea 15 Min : 2 JOYA MUNGUIA OTR/L - 02/01/2019 13:27 EDT Electronically signed by [facility], [facility] Conversion Coagulating Bath Operator Cerner at 07/24/2022 3:54 PM CDT documented in this encounter Plan of Treatment Not on file documented as of this encounter Visit Diagnoses Not on filedocumented in this encounter Care Teams Pretzel Twisting Machine Operator Relationship Specialty Start Date End Date Juan José Kendall MD [address] [facility] [address] [place] [address] PCP - General Family Medicine 12/25/22 Juan José Kendall MD [address] [facility] [address] [place] [address] Referring Physician Family Medicine 12/25/22 documented as of this encounter
--- OUTSIDE RECORDS SUMMARY | 2025-02-22 10:10 | XMS_ITS | Encounter Summary ---
Author Organization [employer] ([place], [place], [place], [place], [place]) Address [address] [place] [address] Care Team Providers Care Workers Compensation Specialist Name Role Phone Juan José Kendall MD Primary Care Provider + [phone] Juan José Kendall MD Unavailable [phone] Encounter Details Date Type Department Care Team (Late st Contact Info) Description 01/31/2019 Transcribed Document [facility] [place] Family Medicine [address] [place] [address] ProviderLaurie MD [address] [place] [address] Social History Tobacco Use Types Packs/Day Years [...] on filedocumented in this encounter Care Teams Workers Compensation Specialist Relationship Specialty Start Date End Date Juan José Kendall MD [address] [place] [address] PCP - General Family Medicine 12/25/22 Juan José Kendall MD [address] [place] [address] Referring Physician Family Medicine 12/25/22 documented as of this encounter
--- OUTSIDE RECORDS SUMMARY | 2025-02-22 10:10 | XMS_ITS | Encounter Summary ---
Author Organization [employer] ([place], [place], [place], [place], [place]) Address [address] [place] [address] Care Team Providers Care Chemical Etching Processor Name Role Phone Juan José Kendall MD Primary Care Provider + [phone] Juan José Kendall MD Unavailable [phone] Encounter Details Date Type Department Care Team (Late st Contact Info) Description 09/29/2018 Transcribed Document [facility] [place] [address] [place] [address] ProviderLaurie MD [address] [place] [address] Social History Tobacco Use Types Packs/Day Years [...] filedocumented in this encounter Care Teams Chemical Etching Processor Relationship Specialty Start Date End Date Juan José Kendall MD [address] [place] [address] [place] [address] PCP - General Family Medicine 12/25/22 Juan José Kendall MD [address] [place] [address] [place] [address] Referring Physician Family Medicine 12/25/22 documented as of this encounter
--- OUTSIDE RECORDS SUMMARY | 2025-02-22 10:10 | XMS_ITS | Encounter Summary ---
Author Organization [employer] ([place], [place], [place], [place], [place]) Address [address] [place] [address] Care Team Providers Care Head Mva Reactor Operator Name Role Phone Juan José Kendall MD Primary Care Provider +- [phone] Juan José Kendall MD Unavailable [phone] Encounter Details Date Type Department Care Team (Late st Contact Info) Description 09/16/2018 Transcribed Document [facility] [place] [address] [place] [address] ProviderLaurie MD [address] [place] [address] Social History Tobacco Use Types Packs/Day Years Used Date Smoking Tobacco: Never Assessed Comments Unknown Sex and Gender Information Value Date Recorded Sex Assigned at Not on file Legal Sex Female 2:23 PM CDT Gender Identity Not on file Sexual Orientation Not on file documented as of this encounter Miscellaneous Notes * Cerner Conversion Note - Laurie ProviderMD - 09/16/2018 3:00 PM CDT Pain Assessment Entered On: 09/16/2018 17:49 EDT Performed On: 09/16/2018 16:54 EDT by ENOCH PERDOOM LPN Intervention Information: acetaminophen Performed by ENOCH PERDOMO LPN on 09/16/2018 15:54:00 EDT acetaminophen,500mg Oral Pain Assessment Pain Assessment : Follow-up assessment Pain Scale Goal : 3 Pain Scale Used : 0-10 Scale Location : Knee, left ENOCH PERDOMO LPN - 09/16/2018 17:49 EDT Pain Scale Intensity : 1 ENOCH PERDOMOLAUREL - 09/16/2018 17:49 EDT Image 4 - Images currently included in the form version of this document have not been included in the text rendition version of the form. documented in this encounter Plan of Treatment Not on file documented as of this encounter Visit Diagnoses Not on filedocumented in this encounter Care Teams Head Mva Reactor Operator Relationship Specialty Start Date End Date Juan José Kendall MD [address] [facility] [address] [place] [address] PCP - General Family Medicine 12/25/22 Juan José Kendall MD [address] [place] [facility] [address] [place] [address] Referring Physician Family Medicine 12/25/22 documented as of this encounter
--- OUTSIDE RECORDS SUMMARY | 2025-02-22 10:10 | XMS_ITS | Encounter Summary ---
Author Organization [employer] ([place], [place], [place], [place], [place]) Address [address] [place] [address] Care Team Providers Care Financial Services Technician Name Role Phone Juan José Kendall MD Primary Care Provider + [phone] Juan José Kendall MD Unavailable [phone] Encounter Details Date Type Department Care Team (Late st Contact Info) Description 09/29/2018 Transcribed Document [facility] [place] [facility] [place] [address] Laurie Garcia MD [address] [place] [address] Social History Tobacco Use Types Packs/Day Years [...] inj 4 mg 2 mL, IV Push, [id number] pantoprazole EC 40 mg tab 40 mg [...] 17.9 % LOW Lymph # 1.10 x10(3)/uL [place] % 9.1 % HI [place] # 0.56 K/uL Eos % 8.0 % [...] filedocumented in this encounter Care Teams Financial Services Technician Relationship Specialty Start Date End Date Juan José Kendall MD [address] [place] [facility] [address] [place] [address] PCP - General Family Medicine 12/25/22 Juan José Kendall MD [address] [place] [facility] [address] [place] [address] Referring Physician Family Medicine 12/25/22 documented as of this encounter
--- OUTSIDE RECORDS SUMMARY | 2025-02-22 10:10 | XMS_ITS | Encounter Summary ---
Author Organization [employer] ([place], [place], [place], [place], [place]) Address [address] [place] [address] Care Team Providers Care Banking Attorney Name Role Phone Juan José Kendall MD Primary Care Provider + [phone] Juan José Kendall MD Unavailable [phone] Encounter Details Date Type Department Care Team (Late st Contact Info) Description 09/16/2018 Transcribed Document [facility] [place] [address] [place] [address] ProviderLaurie MD [address] [place] [address] Social History Tobacco Use Types Packs/Day Years [...] ENOCH PERDOMO LPN - 09/16/2018 17:49 EDT Electronically signed by Aleks [facility] Conversion Cushion Gum Applicator Cerner at 07/24/2022 3:34 PM CDT documented in this encounter Plan of Treatment Not on file documented as of this encounter Visit Diagnoses Not on filedocumented in this encounter Care Teams Banking Attorney Relationship Specialty Start Date End Date Juan José Kendall MD [address] [place] [facility] [address] [place] [address] PCP - General Family Medicine 12/25/22 Juan José Kendall MD [address] [place] [address] Referring Physician Family Medicine 12/25/22 documented as of this encounter
--- OUTSIDE RECORDS SUMMARY | 2025-02-22 10:10 | XMS_ITS | Encounter Summary ---
Author Organization [employer] ([place], [place], [place], [place], [place]) Address [address] [place] [address] Care Team Providers Care Pole Maker Name Role Phone Juan José Kendall MD Primary Care Provider +- [phone] Juan José Kendall MD Unavailable [phone] Encounter Details Date Type Department Care Team (Late st Contact Info) Description 09/29/2018 Transcribed Document [facility] [place] [address] [place] [address] Laurie Garcia MD [address] [place] [address] Social History Tobacco Use Types Packs/Day Years Used Date Smoking Tobacco: Never Assessed Comments Unknown Sex and Gender Information Value Date Recorded Sex Assigned at Not on file Legal Sex Female 2:23 PM CDT Gender Identity Not on file Sexual Orientation Not on file documented as of this encounter Miscellaneous Notes * Cerner Conversion Note - Laurie Garcia MD - 09/29/2018 9:00 AM CDT Pain Assessment Entered On: 09/29/2018 12:22 EDT Performed On: 09/29/2018 10:53 EDT by Nanda Don BARREL DRUM CUTTER-STUDENT NURSE Intervention Information: acetaminophen Performed by FRANTZ BROWN, RN on 09/29/2018 09:53:00 EDT acetaminophen,500mg Oral Pain Assessment Location : Knee, left FRANTZ BROWN, LISBETH - 09/29/2018 12:23 EDT Pain Assessment : Follow-up assessment Pain Scale Goal : 3 Nanda Don BARREL DRUM CUTTER-STUDENT NURSE - 09/29/2018 12:21 EDT documented in this encounter Plan of Treatment Not on file documented as of this encounter Visit Diagnoses Not on filedocumented in this encounter Care Teams Pole Maker Relationship Specialty Start Date End Date Juan José Kendall MD [address] [facility] [address] [place] [address] PCP - General Family Medicine 12/25/22 Juan José Kendall MD [address] [facility] [address] [place] [address] Referring Physician Family Medicine 12/25/22 documented as of this encounter
--- OUTSIDE RECORDS SUMMARY | 2025-02-22 10:10 | XMS_ITS | Encounter Summary ---
Author Organization [employer] ([place], [place], [place], [place], [place]) Address [address] [place] [address] Care Team Providers Care Instructional Interventionist Name Role Phone Juan José Kendall MD Primary Care Provider +- [phone] Juan José Kendall MD Unavailable [phone] Encounter Details Date Type Department Care Team (Late st Contact Info) Description 09/30/2018 Transcribed Document [facility] [place] [address] [place] [address] ProviderLaurie MD [address] [place] [address] Social History Tobacco Use Types Packs/Day Years [...] on filedocumented in this encounter Care Teams Instructional Interventionist Relationship Specialty Start Date End Date Juan José Kendall MD [address] [facility] [address] [place] [address] PCP - General Family Medicine 12/25/22 Juan José Kendall MD [address] [facility] [address] [place] [phone] Referring Physician Family Medicine 12/25/22 documented as of this encounter
--- OUTSIDE RECORDS SUMMARY | 2025-02-22 10:10 | XMS_ITS | Encounter Summary ---
Author Organization [employer] ([place], [place], [place], [place], [place]) Address [address] [place] [address] Care Team Providers Care Medical Physiologist Name Role Phone Juan José Kendall MD Primary Care Provider + [phone] Juan José Kendall MD Unavailable [phone] Encounter Details Date Type Department Care Team (Late st Contact Info) Description 01/31/2019 Transcribed Document [facility] [place] [address] [place] [address] Laurie Garcia MD [address] [place] [address] Social History Tobacco Use Types Packs/Day Years Used Date Smoking Tobacco: Never Assessed Comments Unknown Sex and Gender Information Value Date Recorded Sex Assigned at Not on file Legal Sex Female 2:23 PM CDT Gender Identity Not on file Sexual Orientation Not on file documented as of this encounter Miscellaneous Notes * Cerner Conversion Note - Laurie Garcia MD - 01/31/2019 10:04 AM CDT Patient: TRUDI [...] Allergies (1) Active Reaction Biaxin Acid reflux Estrella Marino Pharm.D. Electronically signed by Aleks, [facility] Conversion [employer] Admissions Representative Cerner at 07/24/2022 3:45 PM CDT documented in this encounter Plan of Treatment Not on file documented as of this encounter Visit Diagnoses Not on filedocumented in this encounter Care Teams Medical Physiologist Relationship Specialty Start Date End Date Juan José Kendall MD [address] [facility] [address] [place] [address] PCP - General Family Medicine 12/25/22 Juan José Kendall MD [address] [facility] [address] [place] [address] Referring Physician Family Medicine 12/25/22 documented as of this encounter
--- OUTSIDE RECORDS SUMMARY | 2025-02-22 10:10 | XMS_ITS | Encounter Summary ---
Author Organization [employer] ([place], [place], [place], [place], [place]) Address [address] [place] [address] Care Team Providers Care Dip Guider Stoves Name Role Phone Juan José Kendall MD Primary Care Provider +- [phone] Juan José Kendall MD Unavailable [phone] Encounter Details Date Type Department Care Team (Late st Contact Info) Description 09/30/2018 Transcribed Document [facility] [place] [facility] [place] [address] ProviderLaurie MD [address] [place] [address] Social History Tobacco Use Types Packs/Day Years [...] Bethany Mo PharmD Electronically signed by Aleks [facility] Conversion Quality Control Lab Tech Cerner at 07/24/2022 3:37 PM CDT documented in this encounter Plan of Treatment Not on file documented as of this encounter Visit Diagnoses Not on filedocumented in this encounter Care Teams Dip Guider Stoves Relationship Specialty Start [place] [address] [place] [address] [address] [place] [address] PCP - General Family Medicine 12/25/22 Juan José Kendall MD [address] [facility] [address] [place] [phone] Referring Physician Family Medicine 12/25/22 documented as of this encounter
--- OUTSIDE RECORDS SUMMARY | 2025-02-22 10:10 | XMS_ITS | Encounter Summary ---
Author Organization [employer] ([place], [place], [place], [place], [place]) Address [address] [place] [address] Care Team Providers Care Equal Opportunity Counselor Name Role Phone Juan José Kendall MD Primary Care Provider +- [phone] Juan José Kendall MD Unavailable [phone] Encounter Details Date Type Department Care Team (Late st Contact Info) Description 01/31/2019 Transcribed Document [facility] [place] Medicine [address] [place] [address] ProviderLaurie MD [address] [place] [address] Social History Tobacco Use Types Packs/Day Years Used Date Smoking Tobacco: Never Assessed Comments Unknown Sex and Gender Information Value Date Recorded Sex Assigned at Not on file Legal Sex Female 2:23 PM CDT Gender Identity Not on file Sexual Orientation Not on file documented as of this encounter Miscellaneous Notes * Cerner Conversion Note - Laurie Garcia MD - 01/31/2019 10:44 AM CDT Treatment Intervention, PT Entered On: 02/02/2019 11:56 EDT Performed On: 02/02/2019 10:03 EDT by VINNIE LUI, BAR PILOT General Information, PT Visit Type, PT : Treatment Note Patient Orders : Order Date Order Ordering 01/30/2019 19:01 PT Evaluation and Treatment Ordered By: JONG SANTACRUZ MD-ORT 01/30/2019 19:01 PT Treatment Instructions Ordered By: JONG SANTACRUZ MD-ORT 01/30/2019 19:01 PT Treatment Instructions Ordered By: JONG SANTACRUZ MD-ORT 01/31/2019 10:44 PT Additional Treatment Ordered By: LINDA BEVERLY, EDWIN Active Diagnoses : 02/01/2019 12:00 Acute posthemorrhagic [...] VINNIE LUI, JACOB - 02/02/2019 11:[address] Security Goals Other PT LTG Grid Goal #1 Goal #2 Other : Patient will complete bed to chair transfer with RW and CGA/min assist x 1 person. Patient will complete supine to sit with leg supervisor riveting and CGA. Date to Meet : 02/03/2019 EDT 02/03/2019 EDT Goal Status : Progressing, continue Progressing, continue VINNIE LUI, JACOB - 02/02/2019 11:43 EDT SANIAVINNIE Hylton, JACOB - 02/02/2019 11:43 EDT Treatment Note [...] needs - BSC to stand with RWx Hilray x2 - BSC to turn to recliner [...] for Treatment : Possible d/c home today. CHEMO LUITRUDY Finn PTA - 02/02/2019 11:43 EDT Pain Assessment Pain Scaled Used : FACES Pain Score Pre-Intervention : 4 SANIACHEMO HyltonTRUDY Finn PTA - 02/02/2019 11:43 EDT Image 1 - Images currently included in the form version of this document have not been included in the text rendition version of the form. [facility] PT Charges PT Ther Activities Ea 15 Min : 2 VINNIE LUI PTA - 02/02/2019 11:43 EDT Electronically signed by Aelks [facility] Conversion Storage Specialist Cerner at 07/24/2022 3:55 PM CDT documented in this encounter Plan of Treatment Not on file documented as of this encounter Visit Diagnoses Not on filedocumented in this encounter Care Teams Equal Opportunity Counselor Relationship Specialty Start Date End Date Juan José Kendall MD [address] [facility] [address] [place] [phone] PCP - General Family Medicine 12/25/22 Juan José Kendall MD [address] [facility] [address] [place] [phone] Referring Physician Family Medicine 12/25/22 documented as of this encounter
--- OUTSIDE RECORDS SUMMARY | 2025-02-22 10:11 | XMS_ITS | Encounter Summary ---
Author Organization [employer] ([place], [place], [place], [place], [place]) Address [address] [place] [address] Care Team Providers Care Embossing Calender Operator Name Role Phone Juan José Kendall MD Primary Care Provider + [phone] Juan José Kendall MD Unavailable [phone] Encounter Details Date Type Department Care Team (Late st Contact Info) Description 09/30/2018 Transcribed Document [facility] [place] Family Medicine [facility] [place] [address] Laurie Garcia MD [address] [place] [address] Social History Tobacco Use Types Packs/Day Years [...] inj 4 mg 2 mL, IV Push, [id number] pantoprazole EC 40 mg tab 40 mg [...] 17.9 % LOW Lymph # 1.10 x10(3)/uL [place] % 9.1 % HI [place] # 0.56 K/uL Eos % 8.0 % [...] on filedocumented in this encounter Care Teams Embossing Calender Operator Relationship Specialty Start Date End Date Juan José Kendall MD [address] [facility] [address] [place] [address] PCP - General Family Medicine 12/25/22 Juan José Kendall MD [address] [facility] [address] [place] [address] Referring Physician Family Medicine 12/25/22 documented as of this encounter
--- OUTSIDE RECORDS SUMMARY | 2025-02-22 10:11 | XMS_ITS | Encounter Summary ---
Author Organization [employer] ([place], [place], [place], [place], [place]) Address [address] [place] [address] Care Team Providers Care Voyage Management System Operator Name Role Phone Juan José Kendall MD Primary Care Provider + [phone] Juan José Kendall MD Unavailable [phone] Encounter Details Date Type Department Care Team (Late st Contact Info) Description 09/16/2018 Transcribed Document [facility] [place] [address] [place] [address] ProviderLaurie MD [address] [place] [address] Social History Tobacco Use Types Packs/Day Years [...] on filedocumented in this encounter Care Teams Voyage Management System Operator Relationship Specialty Start Date End Date Juan José Kendall MD [address] [place] [facility] [address] [place] [address] PCP - General Family Medicine 12/25/22 Juan José Kendall MD 12[address] [facility] [address] [place] [phone] Referring Physician Family Medicine 12/25/22 documented as of this encounter
--- OUTSIDE RECORDS SUMMARY | 2025-02-22 10:11 | XMS_ITS | Encounter Summary ---
Author Organization [employer] ([place], [place], [place], [place], [place]) Address [address] [place] [address] Care Team Providers Care Wellness Manager Name Role Phone Juan José Kendall MD Primary Care Provider + [phone] Juan José Kendall MD Unavailable [phone] Encounter Details Date Type Department Care Team (Late st Contact Info) Description 09/16/2018 Transcribed Document [facility] [place] [facility] [place] [address] Laurie Garcia MD [address] [place] [address] Social History Tobacco Use Types Packs/Day Years [...] inj 4 mg 2 mL, IV Push, [id number] pantoprazole EC 40 mg tab 40 mg [...] 0.9% 250 mL 1,250 mg, IV Piggyback, [id number] Continuous: (0) PRN: (21) acetaminophen 325 mg [...] 17.5 % LOW Lymph # 1.22 x10(3)/uL [place] % 9.8 % HI [place] # 0.68 K/uL Eos % 4.6 % [...] diarrhea.close monitoring fluid & electrolytes ,DVT prophylaxis. documented in this encounter Plan of Treatment Not on file documented as of this encounter Visit Diagnoses Not on filedocumented in this encounter Care Teams Wellness Manager Relationship Specialty Start Date End Date Juan José Kendall MD 12[address] [facility] [address] [place] [phone] PCP - General Family Medicine 12/25/22 [place] [address] [place] [address] [address] [place] [phone] Referring Physician Family Medicine 12/25/22 documented as of this encounter
--- OUTSIDE RECORDS SUMMARY | 2025-02-22 10:12 | XMS_ITS | Encounter Summary ---
Author Organization [employer] ([place], [place], [place], [place], [place]) Address [address] [place] [address] Care Team Providers Care Yard Switch Operator Name Role Phone Juan José Kendall MD Primary Care Provider +- [phone] Juan José Kendall MD Unavailable [phone] Encounter Details Date Type Department Care Team (Late st Contact Info) Description 01/30/2019 Transcribed Document [facility] [place] Family [place] [address] [place] [address] Laurie Garcia MD [address] [place] [address] Social History Tobacco Use Types Packs/Day Years Used Date Smoking Tobacco: Never Assessed Comments Unknown Sex and Gender Information Value Date Recorded Sex Assigned at Not on file Legal Sex Female 2:23 PM CDT Gender Identity Not on file Sexual Orientation Not on file documented as of this encounter Miscellaneous Notes * Cerner Conversion Note - Laurie Garcia MD - 01/30/2019 8:00 PM CDT Pain Assessment [...] EDT Pain Scale Intensity : 4 Dayday Crump, LISBETH - 01/31/2019 1:07 EDT Image 4 - Images currently included in the form version of this document have not been included in the text rendition version of the form. documented in this encounter Plan of Treatment Not on file documented as of this encounter Visit Diagnoses Not on filedocumented in this encounter Care Teams Yard Switch Operator Relationship Specialty Start Date End Date Juan José Kendall MD 1210 [facility] [address] [facility] [place] [address] PCP - General Family Medicine 12/25/22 Juan José Kendall MD 1210 [facility] [address] [place] [address] Referring Physician Family Medicine 12/25/22 documented as of this encounter
--- OUTSIDE RECORDS SUMMARY | 2025-02-22 10:12 | XMS_ITS | Encounter Summary ---
Author Organization [employer] ([place], [place], [place], [place], [place]) Address [address] [place] [address] Care Team Providers Care Financial Services Education Consultant Name Role Phone Juan José Kendall MD Primary Care Provider +- [phone] Juan José Kendall MD Unavailable [phone] Encounter Details Date Type Department Care Team (Late st Contact Info) Description 09/15/2018 Transcribed Document [facility] [place] Medicine [address] [place] [address] ProviderLaurie MD [address] [place] [address] Social History Tobacco Use Types Packs/Day Years [...] EDT Pain Scale Intensity : 8 ENOCH PERDOMOLAUREL - 09/15/2018 15:24 EDT Image 4 - Images currently included in the form version of this document have not been included in the text rendition version of the form. documented in this encounter Plan of Treatment Not on file documented as of this encounter Visit Diagnoses Not on filedocumented in this encounter Care Teams Financial Services Education Consultant Relationship Specialty Start Date End Date Juan José Kendall MD [address] [facility] [address] [place] [address] PCP - General Family Medicine 12/25/22 Juan José Kendall MD [address] [facility] [address] [place] [address] Referring Physician Family Medicine 12/25/22 documented as of this encounter
--- OUTSIDE RECORDS SUMMARY | 2025-02-22 10:12 | XMS_ITS | Encounter Summary ---
Author Organization [employer] ([place], [place], [place], [place], [place]) Address [address] [place] [address] Care Team Providers Care Dental Office Manager Name Role Phone Juan José Kendall MD Primary Care Provider +- [phone] Juan José Kendall MD Unavailable [phone] Encounter Details Date Type Department Care Team (Late st Contact Info) Description 09/28/2018 Transcribed Document [facility] [place] [address] [place] [address] ProviderLaurie MD [address] [place], [place] [address] Social History Tobacco Use Types Packs/Day Years [...] Note : 09/28/2018 Clinical review faxed to [facility] ([phone]) to request coverage for continued LTACH services. Approval pending. Auth# [id number]. Care Management Note Report : PJ NELSON - 09/21/18 15:48:14 09/21/2018 Fax recieved from [facility] with approval for LTACH coverage 09/22/2018-09/28/2018. Auth# [id number]. Fax next clinical review to [phone] on 09/28/2018. NELSONPJ - 09/21/18 08:22:57 09/21/2018 Clinical review faxed to [facility] ([phone]) to request coverage for continued LTACH services. Approval pending. Auth# [id number]. NELSON PJ - 09/15/18 11:34:17 09/15/2018 Fax recieved from [facility] with approval for LTACH services 09/15-09/21/2018. Auth# [id number]. Fax next clinical review to [phone] on 09/21/2018. NELSONPJ BELLO - 09/14/18 08:28:49 09/14/2018 Clinical review faxed to [facility] ([phone]) to request coverage for continued LTACH services. Approval pending. Auth# [id number]. Chuyita Briceno, Clinical Assessment Liaison - 09/09/18 [...] She has previously used [facility] and prefers to use them again if needed. The patient owns a shower chair, BSC and w/c. The patient has never needed a dialysis clinic. The patient has not fallen in the past 3 months. PCP- Dr. Ranjeet [facility]- Orthopedic- Dr. Shay Guerrero [facility]- [facility] SNF- [facility] [place] The patient does wish to return home upon discharge but understands that rehab/SNF may be needed. All papers were explained and signed. No other issues. CM will continue to monitor. Documentation Status Complete : Yes PJ NELSON - 09/28/2018 8:24 EDT documented in this encounter Plan of Treatment Not on file documented as of this encounter Visit Diagnoses Not on filedocumented in this encounter Care Teams Dental Office Manager Relationship Specialty Start Date End Date Juan José Kendall MD [address] [facility] [address] [place] [address] PCP - General Family Medicine 12/25/22 Juan José Kendall MD [address] [facility] [address] [place] [address] Referring Physician Family Medicine 12/25/22 documented as of this encounter
--- OUTSIDE RECORDS SUMMARY | 2025-02-22 10:12 | XMS_ITS | Encounter Summary ---
Author Organization [employer] ([place], [place], [place], [place], [place]) Address [address] [place] [address] Care Team Providers Care Project Coordinator Name Role Phone Juan José Kendall MD Primary Care Provider + [phone] Juan José Kendall MD Unavailable [phone] Encounter Details Date Type Department Care Team (Late st Contact Info) Description 09/14/[address] [facility] [place] Family Medicine [facility] [place] [address] Laurie Garcia MD [address] [place] [address] Social History Tobacco Use Types Packs/Day Years [...] mL 700 mg 14 mL, IV Piggyback, [id number] heparin 5,000 units/1 mL inj 5,000 Units 1 mL, SubCutaneous, Q8HInt metoclopramide 10 mg tab 10 mg 1 Tab, Oral, BID metoprolol tartrate 25 mg tab 25 mg 1 Tab, Oral, Daily ondansetron 4 mg/2 mL inj 4 mg 2 mL, IV Push, [id number] pantoprazole EC 40 mg tab 40 mg [...] in this encounter Care Teams Project Coordinator Relationship Specialty Start Date End Date Juan José Kendall MD [address] [facility] [address] [place] [address] PCP - General Family Medicine 12/25/22 Juan José Kendall MD [address] [facility] [address] [place] [address] Referring Physician Family Medicine 12/25/22 documented as of this encounter
--- OUTSIDE RECORDS SUMMARY | 2025-02-22 10:12 | XMS_ITS | Encounter Summary ---
Author Organization [employer] ([place], [place], [place], [place], [place]) Address [address] [place] [address] Care Team Providers Care Assembly Member Name Role Phone Juan José Kendall MD Primary Care Provider +- [phone] Juan José Kendall MD Unavailable [phone] Encounter Details Date Type Department Care Team (Late st Contact Info) Description 01/30/2019 Transcribed Document [facility] [place] Family Medicine [address] [place] [address] Laurie Garcia MD [address] [place] [address] Social History Tobacco Use Types Packs/Day Years Used Date Smoking Tobacco: Never Assessed Comments Unknown Sex and Gender Information Value Date Recorded Sex Assigned at Not on file Legal Sex Female 2:23 PM CDT Gender Identity Not on file Sexual Orientation Not on file documented as of this encounter Miscellaneous Notes * [employer]ner Conversion Note - Laurie Garcia MD - 01/30/2019 11:28 AM CDT Admission History, Adult Entered On: 01/31/2019 4:55 EDT Performed On: 01/30/2019 11:28 EDT by Dayday Crump RN Advance Directive Patient has Advance Directive *Q : Yes, Advance Directive not with the patient Advance Directive Type : Living will, Medical durable power of corporate attorney (proxy) Copy Advance Directive Verified/on Chart [...] #2 Relationship : na Primary Language : Tuvaluan Preferred Communication Mode : Verbal Communication Barrier [...] Level : 46 or > High Risk [place] Fall Interventions : Adequate lighting Barriers to [...] (Last Updated: 06/23/2018 15:46:55 EDT by RASHEL BARARZA, LISBETH) Height and Weight, Clinical Dosing Height Source : Stated Height Entry Format : Napoleon Height, Feet : 5 ft(Converted to: 152 cm, 60 Inch) Height, Inches : 6 Inch(Converted to: 0 ft 6 Inch, 15.24 cm) Clinical Height : 167.64 cm Weight Source : Standing scale Weight Entry Format : Napoleon Clinical Dosing Weight : 96.82 kg Weight, Pounds : 213 lb Body Surface Area (BSA) : 2.06 m2 Body Mass Index : 34.5 kg/m2 (HI) [place] Body Weight : 59 kg Dayday Crump [...] 01/31/2019 4:53 EDT Electronically signed by Aleks [facility] Conversion Promotions Associate Cerner at 07/24/2022 3:45 PM CDT documented in this encounter Plan of Treatment Not on file documented as of this encounter Visit Diagnoses Not on filedocumented in this encounter Care Teams Assembly Member Relationship Specialty Start Date End Date Juan José Kendall MD [address] [facility] [address] [place] [address] PCP - General Family Medicine 12/25/22 Juan José Kendall MD [address] [facility] [address] [place] [address] Referring Physician Family Medicine 12/25/22 documented as of this encounter
--- OUTSIDE RECORDS SUMMARY | 2025-02-22 10:12 | XMS_ITS | Encounter Summary ---
Author Organization [employer] ([place], [place], [place], [place], [place]) Address [address] [place] [address] Care Team Providers Care Credit Review Analyst Name Role Phone Juan José Kendall MD Primary Care Provider +- [phone] Juan José Kendall MD Unavailable [phone] Encounter Details Date Type Department Care Team (Late st Contact Info) Description 01/31/2019 Transcribed Document [facility] [place] [address] [place] [address] ProviderLaurie MD [address] [place] [address] Social History Tobacco Use Types Packs/Day Years Used Date Smoking Tobacco: Never Assessed Comments Unknown Sex and Gender Information Value Date Recorded Sex Assigned at Not on file Legal Sex Female 2:23 PM CDT Gender Identity Not on file Sexual Orientation Not on file documented as of this encounter Miscellaneous Notes * Cerner Conversion Note - Laurie Garcia MD - 01/31/2019 2:00 AM CDT Lead Java J2Ee Developer Details Entered On: 01/31/2019 1:08 EDT Performed [...] filedocumented in this encounter Care Teams Credit Review Analyst Relationship Specialty Start Date End Date Juan José Kendall MD [address] [facility] [address] [place] [address] PCP - General Family Medicine 12/25/22 Juan José Kendall MD [address] [facility] [address] [place] [address] Referring Physician Family Medicine 12/25/22 documented as of this encounter
--- OUTSIDE RECORDS SUMMARY | 2025-02-22 10:12 | XMS_ITS | Encounter Summary ---
Author Organization [employer] ([place], [place], [place], [place], [place]) Address [address] [place] [address] Care Team Providers Care Tooth Cutter Pinion Name Role Phone Juan José Kendall MD Primary Care Provider +- [phone] Juan José Kendall MD Unavailable [phone] Encounter Details Date Type Department Care Team (Late st Contact Info) Description 01/30/2019 Transcribed Document [facility] [place] Family Medicine [address] [place] [address] Laurie Garcia MD [address] [place] [address] Social History Tobacco Use Types Packs/Day Years Used Date Smoking Tobacco: Never Assessed Comments Unknown Sex and Gender Information Value Date Recorded Sex Assigned at Not on file Legal Sex Female 2:23 PM CDT Gender Identity Not on file Sexual Orientation Not on file documented as of this encounter Miscellaneous Notes * Cerner Conversion Note - Laurie Garcia MD - 01/30/2019 9:00 PM CDT Pain Assessment [...] on filedocumented in this encounter Care Teams Tooth Cutter Pinion Relationship Specialty Start Date End Date Juan José Kendall MD [address] [facility] [address] [place] [address] PCP - General Family Medicine 12/25/22 Juan José Kendall MD [address] [facility] [address] [place] [address] Referring Physician Family Medicine 12/25/22 documented as of this encounter
--- OUTSIDE RECORDS SUMMARY | 2025-02-22 10:12 | XMS_ITS | Encounter Summary ---
Author Organization [employer] ([place], [place], [place], [place], [place]) Address [address] [place] [address] Care Team Providers Care Food Production Manager Name Role Phone Juan José Kendall MD Primary Care Provider +- [phone] Juan José Kendall MD Unavailable [phone] Encounter Details Date Type Department Care Team (Late st Contact Info) Description 09/28/[address] [facility] [place] Family Medicine [address] [place] [address] ProviderLaurie MD [address] [place], [place] [address] Social History Tobacco Use Types Packs/Day Years [...] Management Note : 09/28/2018 Fax recieved from [facility] with approval for LTACH services . Auth# [id number]. Fax next clinical review to [phone] on 10/05/2018. Care Management Note Report : PJ NELSON - 09/28/18 08:24:24 09/28/2018 Clinical review faxed to [facility] ([phone]) to request coverage for continued LTACH services. Approval pending. Auth# [id number]. PJ NELSON - 09/21/18 15:48:14 09/21/2018 Fax recieved from [facility] with approval for LTACH coverage 09/22/2018-09/28/2018. Auth# [id number]. Fax next clinical review to [phone] on 09/28/2018. PJ NELSON - 09/21/18 08:22:57 09/21/2018 Clinical review faxed to [facility] ([phone]) to request coverage for continued LTACH services. Approval pending. Auth# [id number]. PJ NELSON - 09/15/18 11:34:17 09/15/2018 Fax recieved from [facility] with approval for LTACH services 09/15-09/21/2018. Auth# [id number]. Fax next clinical review to [phone] on 09/21/2018. PJ NELSON - 09/14/18 08:28:49 09/14/2018 Clinical review faxed to [facility] ([phone]) to request coverage for continued LTACH services. Approval pending. Auth# [id number]. Chuyita Briceno, Clinical Assessment Liaison - 09/09/18 [...] unit or SNF. She has previously used [facility] and prefers to use them again if needed. The patient owns a shower chair, BSC and w/c. The patient has never needed a dialysis clinic. The patient has not fallen in the past 3 months. PCP- Dr. Ranjeet [facility]- Orthopedic- Dr. Shay Guerrero [facility]- [facility] SN[facility]- [place] [facility]- [facility] [place] The patient does wish to return home upon discharge but understands that rehab/SNF may be needed. All papers were explained and signed. No other issues. CM will continue to monitor. Documentation Status Complete : PJ Singh - 09/28/2018 16:25 EDT Electronically signed by [facility], [facility] Conversion Resident Care Manager Rn Cerner at 07/24/2022 3:48 PM CDT documented in this encounter Plan of Treatment Not on file documented as of this encounter Visit Diagnoses Not on filedocumented in this encounter Care Teams Food Production Manager Relationship Specialty Start Date End Date Juan José Kendall MD [address] [facility] [address] [place] [address] PCP - General Family Medicine 12/25/22 Juan José Kendall MD [address] [facility] [address] [place] [address] Referring Physician Family Medicine 12/25/22 documented as of this encounter
--- OUTSIDE RECORDS SUMMARY | 2025-02-22 10:12 | XMS_ITS | Encounter Summary ---
Author Organization [email or web address] ([place], [place], [place], [place], [place]) Address [address] [place] [address] Care Team Providers Care Wood Processing Worker Name Role Phone Juan José Kendall MD Primary Care Provider + [phone] Juan José Kendall MD Unavailable [phone] Encounter Details Date Type Department Care Team (Late st Contact Info) Description 09/30/2018 Transcribed Document [facility] [place] [address] [place] [address] ProviderLaurie MD [address] [place] [address] Social History Tobacco Use Types Packs/Day Years Used Date Smoking Tobacco: Never Assessed Comments Unknown Sex and Gender Information Value Date Recorded Sex Assigned at Not on file Legal Sex Female 2:23 PM CDT Gender Identity Not on file Sexual Orientation Not on file documented as of this encounter Miscellaneous Notes * Cerner Conversion Note - Historical ProviderMD - 09/30/2018 5:00 AM CDT Chart [...] filedocumented in this encounter Care Teams Wood Processing Worker Relationship Specialty Start Date End Date Juan José Kendall MD [address] [place] [address] PCP - General Family Medicine 12/25/22 Juan José Kendall MD [address] [place] [address] Referring Physician Family Medicine 12/25/22 documented as of this encounter
--- OUTSIDE RECORDS SUMMARY | 2025-02-22 10:12 | XMS_ITS | Encounter Summary ---
Author Organization [employer] ([place], [place], [place], [place], [place]) Address [address] [place] [address] Care Team Providers Care Blank Driller Name Role Phone Juan José Kendall MD Primary Care Provider +- [phone] Juan José Kendall MD Unavailable [phone] Encounter Details Date Type Department Care Team (Late st Contact Info) Description 09/28/[address] [facility] [place] [address] ProviderLaurie MD [address] [place] [address] Social History Tobacco Use Types Packs/Day Years Used Date Smoking Tobacco: Never Assessed Comments Unknown Sex and Gender Information Value Date Recorded Sex Assigned at Not on file Legal Sex Female 2:23 PM CDT Gender Identity Not on file Sexual Orientation Not on file documented as of this encounter Miscellaneous Notes * Cerner Conversion Note - Laurie Garcia MD - 09/28/2018 10:31 AM CDT Patient: TRUDI [...] consultation, Bethany Mo PharmD Electronically signed by [facility], [facility] Conversion Printed Circuit Board Layout Designer Cerner at 07/24/2022 3:48 PM CDT documented in this encounter Plan of Treatment Not on file documented as of this encounter Visit Diagnoses Not on filedocumented in this encounter Care Teams Blank Driller Relationship Specialty Start Date End Date Juan José Kendall MD [address] [facility] [address] [place] [address] PCP - General Family Medicine 12/25/22 Juan José Kendall MD [address] [facility] [address] [place] [address] Referring Physician Family Medicine 12/25/22 documented as of this encounter
--- OUTSIDE RECORDS SUMMARY | 2025-02-22 10:12 | XMS_ITS | Encounter Summary ---
Author Organization [employer] ([place], [place], [place], [place], [place]) Address [address] [place] [address] Care Team Providers Care Store Director Name Role Phone Juan José Kendall MD Primary Care Provider +- [phone] Juan José Kendall MD Unavailable [phone] Encounter Details Date Type Department Care Team (Late st Contact Info) Description 09/16/2018 Transcribed Document [facility] [place] Family Medicine [address] [place] [address] ProviderLaurie MD [address] [place] [address] Social History Tobacco Use Types Packs/Day Years [...] Garcia MD - 09/16/2018 9:00 PM CDT Pain Assessment Entered On: 09/17/2018 1:39 EDT Performed On: 09/16/2018 22:09 EDT by Kelly Deng, RN Intervention Information: acetaminophen Performed by Kelly Deng RN on 09/16/2018 21:09:00 EDT acetaminophen,500mg Oral Pain Assessment Pain Assessment : Follow-up assessment Pain Scale Goal : 3 Pain Improved by Intervention : Yes Kelly Deng RN - 09/17/2018 1:39 EDT Electronically signed by Aleks [facility] Conversion System Development Manager Cerner at 07/24/2022 3:48 PM CDT documented in this encounter Plan of Treatment Not on file documented as of this encounter Visit Diagnoses Not on filedocumented in this encounter Care Teams Store Director Relationship Specialty Start Date End Date Juan José Kendall MD 1210 [facility] [address] [place] [address] PCP - General Family Medicine 12/25/22 Juan José Kendall MD 12[address] [facility] [address] [place] [address] Referring Physician Family Medicine 12/25/22 documented as of this encounter
--- OUTSIDE RECORDS SUMMARY | 2025-02-22 10:12 | XMS_ITS | Encounter Summary ---
Author Organization [employer] ([place], [place], [place], [place], [place]) Address [address] [place] [address] Care Team Providers Care Assistant Professor Of Economics Name Role Phone Juan José Kendall MD Primary Care Provider +- [phone] Juan José Kendall MD Unavailable [phone] Encounter Details Date Type Department Care Team (Late st Contact Info) Description 01/30/2019 Transcribed Document [facility] [place] Family Medicine [address] [place] [address] ProviderLaurie MD [address] [place] [address] Social History Tobacco Use Types Packs/Day Years Used Date Smoking Tobacco: Never Assessed Comments Unknown Sex and Gender Information Value Date Recorded Sex Assigned at Not on file Legal Sex Female 2:23 PM CDT Gender Identity Not on file Sexual Orientation Not on file documented as of this encounter Miscellaneous Notes * Cerner Conversion Note - Laurie ProviderMD - 01/30/2019 1:00 PM CDT Peripheral [...] - 01/30/2019 14:46 EDT Electronically signed by [facility], [facility] Conversion Tester Regulator Cerner at 07/24/2022 3:52 PM CDT documented in this encounter Plan of Treatment Not on file documented as of this encounter Visit Diagnoses Not on filedocumented in this encounter Care Teams Assistant Professor Of Economics Relationship Specialty Start Date End Date Juan [...]
--- OUTSIDE RECORDS SUMMARY | 2025-02-22 10:13 | XMS_ITS | Encounter Summary ---
Author Organization [employer] ([place], [place], [place], [place], [place]) Address [address] [place] [address] Care Team Providers Care Dry Boss Name Role Phone Juan José Kendall MD Primary Care Provider +- [phone] Juan José Kendall MD Unavailable [phone] Encounter Details Date Type Department Care Team (Late st Contact Info) Description 09/15/2018 Transcribed Document [facility] [place] [address] [place] [address] ProviderLaurie MD [address] [place] [address] Social History Tobacco Use Types Packs/Day Years Used Date Smoking Tobacco: Never Assessed Comments Unknown Sex and Gender Information Value Date Recorded Sex Assigned at Not on file Legal Sex Female 2:23 PM CDT Gender Identity Not on file Sexual Orientation Not on file documented as of this encounter Miscellaneous Notes * Cerner Conversion Note - Laurie ProviderMD - 09/15/2018 2:00 AM CDT Pull Over Machine Operator Details Entered On: 09/15/2018 3:17 EDT Performed [...] 09/15/2018 3:16 EDT Electronically signed by Aleks [facility] Conversion Syrup Mixer Cerner at 07/24/2022 3:38 PM CDT documented in this encounter Plan of Treatment Not on file documented as of this encounter Visit Diagnoses Not on filedocumented in this encounter Care Teams Dry Boss Relationship Specialty Start Date End Date Juan José Kendall MD [address] [facility] [address] [place] [address] PCP - General Family Medicine 12/25/22 Juan José Kendall MD 12[address] [facility] [address] [place] [phone] Referring Physician Family Medicine 12/25/22 documented as of this encounter
--- OUTSIDE RECORDS SUMMARY | 2025-02-22 10:13 | XMS_ITS | Encounter Summary ---
Author Organization [employer] ([place], [place], [place], [place], [place]) Address [address] [place] [address] Care Team Providers Care Philosophy Instructor Name Role Phone Juan José Kendall MD Primary Care Provider + [phone] Juan José Kendall MD Unavailable [phone] Encounter Details Date Type Department Care Team (Late st Contact Info) Description 09/29/2018 Transcribed Document [facility] [place] Family Medicine [address] [place] [address] ProviderLaurie MD [address] [place] [address] Social History Tobacco Use Types Packs/Day Years [...] Performed On: 09/29/2018 18:00 EDT by FRANTZ BROWN RN Patch Check Patch Check Result : Yes Patch Check - Type of Patch : scopolamine (Transderm-Scop) FRANTZ BROWN RN - 09/29/2018 17:49 EDT documented in this encounter Plan of Treatment Not on file documented as of this encounter Visit Diagnoses Not on filedocumented in this encounter Care Teams Philosophy Instructor Relationship Specialty Start Date End Date Juan José Kendall MD [address] [place] [address] PCP - General Family Medicine 12/25/22 Juan José Kendall MD [address] [place] [address] [place] [address] Referring Physician Family Medicine 12/25/22 documented as of this encounter
--- OUTSIDE RECORDS SUMMARY | 2025-02-22 10:13 | XMS_ITS | Encounter Summary ---
Author Organization [employer] ([place], [place], [place], [place], [place]) Address [address] [place] [address] Care Team Providers Care Instant Potato Processor Name Role Phone Juan José Kendall MD Primary Care Provider +- [phone] Juan José Kendall MD Unavailable [phone] Encounter Details Date Type Department Care Team (Late st Contact Info) Description 09/15/2018 Transcribed Document [facility] [place] [address] [place] [address] ProviderLaurie MD [address] [place] [address] Social History Tobacco Use Types Packs/Day Years Used Date Smoking Tobacco: Never Assessed Comments Unknown Sex and Gender Information Value Date Recorded Sex Assigned at Not on file Legal Sex Female 2:23 PM CDT Gender Identity Not on file Sexual Orientation Not on file documented as of this encounter Miscellaneous Notes * Cerner Conversion Note - Laurie Garcia MD - 09/15/2018 9:00 PM CDT Pain Assessment [...] on filedocumented in this encounter Care Teams Instant Potato Processor Relationship Specialty Start Date End Date Juan José Kendall MD [address] [facility] [address] [place] [address] PCP - General Family Medicine 12/25/22 Juan José Kendall MD [address] [facility] [address] [place] [address] Referring Physician Family Medicine 12/25/22 documented as of this encounter
--- OUTSIDE RECORDS SUMMARY | 2025-02-22 10:13 | XMS_ITS | Encounter Summary ---
Author Organization [employer] ([place], [place], [place], [place], [place]) Address [address] [place] [address] Care Team Providers Care Supervisor Refractory Products Name Role Phone Juan José Kendall MD Primary Care Provider + [phone] Juan José Kendall MD Unavailable [phone] Encounter Details Date Type Department Care Team (Late st Contact Info) Description 09/15/2018 Transcribed Document [facility] Family Medicine [facility] [place] [address] Laurie Garcia MD [address] [place] [address] Social History Tobacco Use Types Packs/Day Years [...] inj 4 mg 2 mL, IV Push, [id number] pantoprazole EC 40 mg tab 40 mg [...] 0.9% 250 mL 1,250 mg, IV Piggyback, [id number] Continuous: (0) PRN: (21) acetaminophen 325 mg [...] filedocumented in this encounter Care Teams Supervisor Refractory Products Relationship Specialty Start Date End Date Juan José Kendall MD [address] [facility] [address] [place] [phone] PCP - General Family Medicine 12/25/22 Juan José Kendall MD [address] [facility] [address] [place] [address] Referring Physician Family Medicine 12/25/22 documented as of this encounter
--- OUTSIDE RECORDS SUMMARY | 2025-02-22 10:13 | XMS_ITS | Encounter Summary ---
Author Organization [employer] ([place], [place], [place], [place], [place]) Address [address] [place] [address] Care Team Providers Care Packaging Specialist Name Role Phone Juan José Kendall MD Primary Care Provider + [phone] Juan José Kendall MD Unavailable [phone] Encounter Details Date Type Department Care Team (Late st Contact Info) Description 09/15/2018 Transcribed Document [facility] [place] Family Medicine [address] [place] [address] ProviderLaurie MD [address] [place] [address] Social History Tobacco Use Types Packs/Day Years [...] on filedocumented in this encounter Care Teams Packaging Specialist Relationship Specialty Start Date End Date Juan José Kendall MD [address] [facility] [address] [place] [address] PCP - General Family Medicine 12/25/22 Juan José Kendall MD [address] [place] [facility] [address] [place] [address] Referring Physician Family Medicine 12/25/22 documented as of this encounter
--- OUTSIDE RECORDS SUMMARY | 2025-02-22 10:13 | XMS_ITS | Encounter Summary ---
Author Organization [employer] ([place], [place], [place], [place], [place]) Address [address] [place] [address] Care Team Providers Care Skin Diving Teacher Name Role Phone Juan José Kendall MD Primary Care Provider +- [phone] Juan José Kendall MD Unavailable [phone] Encounter Details Date Type Department Care Team (Late st Contact Info) Description 01/30/2019 Transcribed Document [facility] [place] Family Medicine [address] [place] [address] ProviderLaurie MD [address] [place] [address] Social History Tobacco Use Types Packs/Day Years Used Date Smoking Tobacco: Never Assessed Comments Unknown Sex and Gender Information Value Date Recorded Sex Assigned at Not on file Legal Sex Female 2:23 PM CDT Gender Identity Not on file Sexual Orientation Not on file documented as of this encounter Miscellaneous Notes * Cerner Conversion Note - Laurie ProviderMD - 01/30/2019 2:37 PM CDT [facility] Main OR IntraOp Summary Primary Physician: JONG SANTACRUZ MD-ORT Finalized Date/Time: 01/31/19 09:02:33 Pt. Name: ROSSY TRUDI KAY /Sex: 1955 Female Med Rec #: [id number] Physician: JONES HIDALGO MD-INT Financial #: [id number] Pt. Type: I Room/Bed: [facility]/ Admit/Disch: 01/30/19 19:40:00 - Institution: [facility] [place] [facility] IntraOp Case Attendance Entry 1 Entry 2 Entry 3 Case Attendee JONG SANTACRUZ MD-ORT RIZWAN AGUILAR, MACY GARCIAS, LISBETH Role Performed Surgeon/Proceduralist, SANDER MACHINE/Nurse Field Crop Farm Worker Logistics Technician, First First Time In 01/30/19 14:00:00 01/30/19 [...] Case Attendee TANMAY SU, SHAY SOSA DANNY, LAUNCH ENGINEER Role Performed Logistics Technician, Second Scrub, First Scrub, Second Time In 01/30/19 15:00:00 01/30/19 14:00:00 01/30/19 15:02:00 Time Out 01/30/19 17:02:00 01/30/19 15:06:00 01/30/19 18:03:00 Procedure Patella Tendon Repair Patella Tendon Repair Patella Tendon Repair Other Attendee Superficial Wound Closed By: Last Modified By: MACY SANCHEZ RN LONGSWORTH, GARY, RN LONGSWORTH, GARY, RN 01/30/19 18:04:08 01/30/19 18:04:08 01/30/19 18:04:08 Entry 7 Entry 8 Entry 9 Case Attendee RIZWAN AGUILAR, Rory Mccabe, -BELEM SHARP, RAMANA Role Performed SANDER MACHINE/Nurse Field Crop Farm Worker Assistive Dope And Fabric Worker, First Time In 01/30/19 14:00:00 01/30/19 14:00:00 01/30/19 14:00:00 Time Out 01/30/19 15:12:00 01/30/19 17:00:00 01/30/19 17:00:00 Procedure Patella Tendon Repair Patella Tendon Repair Patella Tendon Repair Other Attendee Superficial Wound Closed By: Last Modified By: MACY SANCHEZ RN LONGSWORTH, GARY, RN LONGSWORTH, GARY, RN 01/30/19 18:04:08 01/30/19 18:04:08 01/30/19 18:04:08 Entry 10 Entry 11 Entry 12 Case Attendee SIENA ROSE, Emily Crouch, NICK KERN, -MONICA Water Well Driller Role Performed SANDER MACHINE/Nurse Field Crop Farm Worker Manager Facility Anesthesiologist Time In 01/30/19 15:11:00 01/30/19 16:19:00 01/30/19 16:51:00 Time Out 01/30/19 16:51:00 01/30/19 17:06:00 01/30/19 18:03:00 Procedure Patella Tendon Repair Patella Tendon Repair Patella Tendon Repair Other Attendee Superficial Wound Closed By: Last Modified By: MACY SANCHEZ RN LONGSWORTH, GARY, RN LONGSWORTH, GARY, RN 01/30/19 18:04:08 01/30/19 18:04:08 01/30/19 18:04:08 Entry 13 Entry 14 Case Attendee OLEG BETH PA-C Davis, Aleitha E, RN Role Performed Physician assistant hall director Logistics Technician, First Time In 01/30/19 16:55:00 01/30/19 17:01:00 Time Out 01/30/19 18:03:00 01/30/19 18:03:00 Procedure Patella Tendon Repair Patella Tendon Repair Other Attendee Superficial Wound Closed By: Last Modified By: MACY SANCHEZ RN LONGSWORTH, GARY, RN 01/30/19 18:04:08 01/30/19 18:04:08 [facility] IntraOp Case Attendance Audit 01/30/19 18:04:08 Rabbit Fancier: ALBERTINA Modifier: ALBERTINA 1 <+> Time Out [...] <*> Procedure Patella Tendon Repair 01/30/19 17:14:54 Rabbit Fancier: LONGGA Modifier: LONGGA 2 <+> Time Out 2 <*> Procedure Patella Tendon Repair 8 <+> Time Out 8 <*> Procedure Patella Tendon Repair 9 <+> Time Out 9 <*> Procedure Patella Tendon Repair 01/30/19 17:09:17 Rabbit Fancier: LONGGA Modifier: LONGGA 4 <+> Time Out 4 <*> Procedure Patella Tendon Repair 11 <+> Time Out 11 <*> Procedure Patella Tendon Repair <+> 14 Case Attendee <+> 14 Role Performed <+> 14 Time In <+> 14 Procedure 01/30/19 17:06:05 Rabbit Fancier: LONGGA Modifier: LONGGA 10 <+> Time Out 10 <*> Procedure Patella Tendon Repair <+> 12 Case Attendee <+> 12 Role Performed <+> 12 Time In <+> 12 Procedure <+> 13 Case Attendee <+> 13 Role Performed <+> 13 Time In <+> 13 Procedure 01/30/19 16:19:39 Rabbit Fancier: LONGGA Modifier: LONGGA 1 <+> Time In [...] Time In <+> 11 Procedure 01/30/19 15:14:01 Rabbit Fancier: LONGGA Modifier: LONGGA <+> 1 Procedure 2 <*> Procedure Patella Tendon Repair 3 <*> Procedure Patella Tendon Repair 4 <*> Procedure Patella Tendon Repair 5 <*> Procedure Patella Tendon Repair 6 <*> Procedure Patella Tendon Repair 7 <*> Procedure Patella Tendon Repair 8 <*> Procedure Patella Tendon Repair 9 <*> Procedure Patella Tendon Repair 10 <*> Procedure Patella Tendon Repair 01/30/19 15:12:34 Rabbit Fancier: LONGGA Modifier: LONGGA 7 <+> Time Out 7 <*> Procedure Patella Tendon Repair <+> 10 Case Attendee <+> 10 Role Performed <+> 10 Time In <+> 10 Procedure 01/30/19 15:06:43 Rabbit Fancier: LONGGA Modifier: LONGGA 3 <+> Time Out 3 <*> Procedure Patella Tendon Repair 5 <+> Time Out 5 <*> Procedure Patella Tendon Repair 01/30/19 15:04:29 Rabbit Fancier: LONGGA Modifier: LONGGA <+> 5 Case Attendee [...] Role Performed <+> 9 Procedure 01/30/19 15:01:10 Rabbit Fancier: LONGGA Modifier: LONGGA <+> 4 Case Attendee [...] [facility] IntraOp Case Times Audit 01/30/19 18:04:07 Rabbit Fancier: LONGGA Modifier: LONGGA <+> 1 Out Room Time <+> 1 Stop Time 01/30/19 17:46:15 Rabbit Fancier: LONGGA Modifier: LONGGA <+> 1 Stop Time 01/30/19 15:33:12 Rabbit Fancier: LONGGA Modifier: LONGGA <+> 1 In Room [...] E, RN (RN) Last Modified By: MACY SNACHEZ RN LONGSWORTH, GARY, RN LONGSWORTH, GARY, RN 01/30/19 15:16:17 01/30/19 17:14:18 01/30/19 17:15:07 [facility] IntraOp Counts Verification Audit 01/30/19 17:15:07 Rabbit Fancier: LONGGA Modifier: LONGGA <+> 3 Procedure <+> 3 Count Type <+> 3 Counts Verification Sequence <+> 3 Count Results <+> 3 Count Performed By (Scrub) <+> 3 Count Performed By (RN) 01/30/19 17:14:18 Rabbit Fancier: LONGGA Modifier: LONGGA <+> 2 Procedure <+> 2 Count Type <+> 2 Counts Verification Sequence <+> 2 Count Results <+> 2 Count Performed By (Scrub) <+> 2 Count Performed By (RN) 01/30/19 15:16:17 Rabbit Fancier: ALBERTINA Modifier: LONGGA 1 <*> Procedure Patella [...] IntraOp Departure from OR Audit 01/30/19 17:15:43 Rabbit Fancier: ALBERTINA Modifier: LONGGA <+> 1 Patient Transport Accompanied by Justo IntraOp Drains and Tubes Entry 1 Device Type Hemovac Drain/Tube Activity Inserted Device Location RIGHT KNEE Method of Drainage Compression Last Modified By: MACY SANCHEZ RN 01/30/19 17:24:02 [facility] IntraOp Dressing and Packing Entry 1 Type Dressing Location OPSITE Wound Dressing Item Xeroform, 4x4's Supplemental Cast, fiberglass, Applications Cervical Collar Applied By OLEG BETH PA-C Last Modified By: MACY SANCHEZ RN 01/30/19 17:23:34 [facility] IntraOp Dressing and Packing Audit 01/30/19 17:23:34 Rabbit Fancier: ALBERTINA Modifier: LONGGA <+> 1 Wound Dressing [...] IntraOp Fire Risk Assessment Audit 01/30/19 15:06:54 Rabbit Fancier: ALBERTINA Modifier: LONGGA <+> 1 Fire Risk Assessment Complete <+> 1 Fire Risk Assessment Verified By <+> 1 Fire Risk Assessment Verified Date/Time [facility] IntraOp General Case Licensed Embalmer 1 Case Information OR OR 05 [facility] Case Level 1 Room Verified Yes Wound Class I - Clean Specialty SN Orthopedic Anesthesia Type General ASA Class 3 Diagnosis Preop Diagnosis RIGHT PATELLAR TENDON RUPTURE Postop Same As Preop Yes Postop Diagnosis RIGHT PATELLAR TENDON RUPTURE Last Modified By: MACY SANCHEZ RN 01/30/19 15:12:52 [facility] IntraOp General Case Data Audit 01/30/19 15:12:52 Rabbit Fancier: ALBERTINA Modifier: LONGGA <+> 1 Preop Diagnosis <+> 1 Postop Diagnosis [facility] IntraOp Implant Log Entry 1 Entry 2 Entry 3 Type Implant (Synthetic) Implant (Synthetic) Implant (Synthetic) Implant Log Implant Type Mesh Bone Cement Hardware Tissue Implant Type Implant MESH KARLA FLAT SHT CEMENT BONE COBALT HV SCR ANDRAE FT [id number] NS Identification [id number] Description Implant Quantity 1 1 1 Implant Site RIGHT KNEE RIGHT KNEE RIGHT KNEE Implant Identification Model Number Implant Identification Serial Number Implant [id number] Identification Lot Number Implant Cr :Lottie Collins Surg:Encore Synthes:Synthes [place] Identification Med:Josemanuel Forming Mill Operator Name: Implant [id number] Identification Catalog Number Implant Size Implant Has an Expiration Date Implant Expiration 01/30/22 04/27/20 Date Wasted Radioactive Material Time Implanted Tissue Implant Continue for Tissue Implant Documentation Tissue Identification Number Graft Prep Per Forming Mill Operator Instructions: Tissue Preparation Method: Reconstitution Solution: Reconstitution Solution Lot Number Reconstitution Solution Expiration Date: Thawing Solution Thawing Solution Lot Number Thawing Solution 01/30/19 Expiration Date Preparation Materials, Other Preparation Materials, Other Lot Number Preparation Materials, Other Expiration Date Tissue Prepared/Processed By Forming Mill Operator Paperwork Completed Implant Type Comment Last Modified By: MACY SANCHEZ RN LONGSWORTH, GARY, RN LONGSWORTH, GARY, RN 01/30/19 16:06:53 01/30/19 15:33:59 01/30/19 16:06:53 Entry 4 Type Implant (Synthetic) Implant Log Implant Type Hardware Tissue Implant Type Implant WASHR 10MM SCR ANDRAE Identification 4.5MM [id number] Description Implant Quantity 1 Implant Site RIGHT KNEE Implant Identification Model Number Implant Identification Serial Number Implant Identification Lot Number Implant Synthes:Synthes [place] Identification Forming Mill Operator Name: Implant 219.91 Identification Catalog Number Implant Size Implant Has an Expiration Date Implant Expiration Date Wasted Radioactive Material Time Implanted Tissue Implant Continue for Tissue Implant Documentation Tissue Identification Number Graft Prep Per Forming Mill Operator Instructions: Tissue Preparation Method: Reconstitution Solution: Reconstitution Solution Lot Number Reconstitution Solution Expiration Date: Thawing Solution Thawing Solution Lot Number Thawing Solution Expiration Date Preparation Materials, Other Preparation Materials, Other Lot Number Preparation Materials, Other Expiration Date Tissue Prepared/Processed By Forming Mill Operator Paperwork Completed Implant Type Comment Last Modified By: MACY SANCHEZ RN 01/30/19 16:16:49 [facility] IntraOp Implant Log Audit 01/30/19 16:16:49 Rabbit Fancier: LONGGA Modifier: LONGGA <+> 4 Implant Identification Description <+> 4 Implant Identification Forming Mill Operator Name: <+> 4 Implant Site <+> 4 Implant Quantity <+> 4 Implant Identification Catalog Number <+> 4 Implant Type <+> 4 Type 01/30/19 16:06:53 Rabbit Fancier: LONGGA Modifier: LONGGA 1 <*> Implant Identification Description MESH KARLA FLAT T [id number] <*> Implant Site RIGHT PATELLA <+> 3 Implant Identification Description <+> 3 Implant Identification Forming Mill Operator Name: <+> 3 Implant Site <+> 3 Implant Quantity <+> 3 Implant Identification Catalog Number <+> 3 Implant Type <+> 3 Type 01/30/19 15:33:59 Rabbit Fancier: LONGGA Modifier: LONGGA <+> 2 Implant Identification Description <+> 2 Implant Identification Lot Number <+> 2 Implant Identification Forming Mill Operator Name: <+> 2 Implant Expiration Date <+> [...] Intra Op Sign Out Audit 01/30/19 18:04:01 Rabbit Fancier: ALBERTINA Modifier: LONGGA <+> 1 OUTCOME STATEMENT: [...] with measures to prevent infection 01/30/19 17:46:25 Rabbit Fancier: ALBERTINA Modifier: LONGGA 1 <*> RN Sign [...] RECONSTRUCTION Description Primary Procedure Yes Primary Surgeon JOGN SANTACRUZ MD-ORT Start 01/30/19 14:37:00 Stop 01/30/19 17:46:00 Anesthesia Type General Specialty SN Orthopedic Wound Class I - Clean Last Modified By: MACY SANCHEZ RN 01/30/19 17:46:26 [facility] IntraOp Surgical Procedures Audit 01/30/19 17:46:26 Rabbit Fancier: ALBERTINA Modifier: LONGGA <+> 1 Stop SJE [...] Modified By: MACY SANCHEZ RN 01/30/19 15:07:30 [facility] IntraOp Tourniquet Entry 1 Type Pneumatic Serial/Unit Number 2 Setting 350 mmHg Pheumatic Yes Tourniquet Checked Per Protocol Size 42 inches Placement Thigh, right upper Skin Protection - Yes Padded Under Cuff Applied By BELEM MURGUIA FA Times Start Time 01/30/19 14:37:00 Stop Time 01/30/19 16:36:00 Last Modified By: MACY SANCHEZ RN 01/30/19 16:50:58 [facility]WANA IntraOp Tourniquet Audit 01/30/19 16:50:58 Rabbit Fancier: ALBERTINA Modifier: LONGGA <+> 1 Stop Time Case Comments <None> Finalized By: Vivien Lopez, RN Document Signatures Signed By: MACY SANCHEZ RN 01/30/19 18:04 Vivien Lopez, LISBETH 01/31/19 09:02 Unfinalized History Date/Time Username Reason for Unfinalizing Freetext Reason for Unfinalizing 01/31/19 09:01 MONROE Chart Audit documented in this encounter Plan of Treatment Not on file documented as of this encounter Visit Diagnoses Not on filedocumented in this encounter Care Teams Skin Diving Teacher Relationship Specialty Start Date End Date Juan José Kendall MD [address] [facility] [address] [place] [phone] PCP - General Family Medicine 12/25/22 Juan José Kendall MD [address] [place] [address] [place] [phone] Referring Physician Family Medicine 12/25/22 documented as of this encounter
--- OUTSIDE RECORDS SUMMARY | 2025-02-22 10:13 | XMS_ITS | Encounter Summary ---
Author Organization [employer] ([place], [place], [place], [place], [place]) Address [address] [place] [address] Care Team Providers Care Sales Engagement Executive Name Role Phone Juan José Kendall MD Primary Care Provider +- [phone] Juan José Kendall MD Unavailable [phone] Encounter Details Date Type Department Care Team (Late st Contact Info) Description 09/28/2018 Transcribed Document [facility] [place] Family Medicine [address] [place] [address] ProviderLaurie MD [address] [place] [address] Social History Tobacco Use Types Packs/Day Years Used Date Smoking Tobacco: Never Assessed Comments Unknown Sex and Gender Information Value Date Recorded Sex Assigned at Not on file Legal Sex Female 2:23 PM CDT Gender Identity Not on file Sexual Orientation Not on file documented as of this encounter Miscellaneous Notes * Cerner Conversion Note - Laurie ProviderMD - 09/28/2018 2:00 AM CDT Operation Agent Details Entered On: 09/28/2018 4:43 EDT Performed On: 09/28/2018 2:00 EDT by Angy Esqueda Rn Order [...] Angy Esqueda Rn - 09/28/2018 4:42 EDT Electronically signed by Aleks [facility] Conversion Parts Washer Cerner at 07/24/2022 3:49 PM CDT documented in this encounter Plan of Treatment Not on file documented as of this encounter Visit Diagnoses Not on filedocumented in this encounter Care Teams Sales Engagement Executive Relationship Specialty Start Date End Date Juan José Kendall MD [address] [facility] [address] [place] [phone] PCP - General Family Medicine 12/25/22 Juan José Kendall MD [address] [facility] [address] [place] [phone] Referring Physician Family Medicine 12/25/22 documented as of this encounter
--- OUTSIDE RECORDS SUMMARY | 2025-02-22 10:13 | XMS_ITS | Encounter Summary ---
Author Organization [employer] ([place], [place], [place], [place], [place]) Address [address] [place] [address] Care Team Providers Care Yarder Operator Name Role Phone Juan José Kendall MD Primary Care Provider +- [phone] Juan José Kendall MD Unavailable [phone] Encounter Details Date Type Department Care Team (Late st Contact Info) Description 09/29/2018 Transcribed Document [facility] [place] Family Medicine [address] [place] [address] ProviderLaurie MD [address] [place] [address] Social History Tobacco Use Types Packs/Day Years [...] filedocumented in this encounter Care Teams Yarder Operator Relationship Specialty Start Date End Date Juan José Kendall MD [address] [facility] [address] [place] [phone] PCP - General Family Medicine 12/25/22 Juan José Kendall MD [address] [facility] [address] [place] [phone] Referring Physician Family Medicine 12/25/22 documented as of this encounter
--- OUTSIDE RECORDS SUMMARY | 2025-02-22 10:13 | XMS_ITS | Encounter Summary ---
Author Organization [employer] ([place], [place], [place], [place], [place]) Address [address] [place] [address] Care Team Providers Care Cell Room Operator Name Role Phone Juan José Kendall MD Primary Care Provider + [phone] Juan José Kendall MD Unavailable [phone] Encounter Details Date Type Department Care Team (Late st Contact Info) Description 01/30/2019 Transcribed Document [facility] [place] [facility] [place] [address] Laurie Garcia MD [address] [place] [address] Social History Tobacco Use Types Packs/Day Years Used Date Smoking Tobacco: Never Assessed Comments Unknown Sex and Gender Information Value Date Recorded Sex Assigned at Not on file Legal Sex Female 2:23 PM CDT Gender Identity Not on file Sexual Orientation Not on file documented as of this encounter Miscellaneous Notes * Cerner Conversion Note - Historical MD Jose - 01/30/2019 6:09 PM CDT DATE OF [...] mesh graft and repair of innate tissue. BRAKESHOE REPAIRER: José Luis Cloud. DESCRIPTION OF PROCEDURE: Patient was taken to the operating room, and after satisfactory general anesthesia, was transferred to the operating table. Her right leg was thoroughly scrubbed with Hibiclens, then cleansed with Betadine, and then DICTATION ENDS HERE /[id number] MD BANDAR [employer]/AQ / BANDAR / MODL /[id number] Electronically signed by Aleks, [facility] Conversion Photographer'S Model Cerner at 07/24/2022 3:55 PM CDT documented in this encounter Plan of Treatment Not on file documented as of this encounter Visit Diagnoses Not on filedocumented in this encounter Care Teams Cell Room Operator Relationship Specialty Start Date End Date Juan José Kendall MD [address] [facility] [address] [place] [phone] PCP - General Family Medicine 12/25/22 Juan José Kendall MD [address] [facility] [address] [place] [phone] Referring Physician Family Medicine 12/25/22 documented as of this encounter
--- OUTSIDE RECORDS SUMMARY | 2025-02-22 10:13 | XMS_ITS | Encounter Summary ---
Author Organization [employer] ([place], [place], [place], [place], [place]) Address [address] [place] [address] Care Team Providers Care Traffic Assistant Name Role Phone Juan José Kendall MD Primary Care Provider +- [phone] Juan José Kendall MD Unavailable [phone] Encounter Details Date Type Department Care Team (Late st Contact Info) Description 01/30/2019 Transcribed Document [facility] [place] [address] [place] [address] Laurie Garcia MD [address] [place] [address] Social History Tobacco Use Types Packs/Day Years Used Date Smoking Tobacco: Never Assessed Comments Unknown Sex and Gender Information Value Date Recorded Sex Assigned at Not on file Legal Sex Female 2:23 PM CDT Gender Identity Not on file Sexual Orientation Not on file documented as of this encounter Miscellaneous Notes * Cerner Conversion Note - Laurie Garcia MD - 01/30/2019 12:44 PM CDT Pre Procedure Adult Entered On: 01/30/2019 13:00 EDT Performed On: 01/30/2019 12:44 EDT by Magnolia Lima RN Height and Weight, Clinical Dosing Height Source : Stated Height Entry Format : [place] Height, Feet : 5 ft(Converted to: 152 cm, 60 Inch) Height, Inches : 6 Inch(Converted to: 0 ft 6 Inch, 15.24 cm) Clinical Height : 167.64 cm Weight Source : Standing scale Weight Entry Format : [place] Clinical Dosing Weight : 96.82 kg Weight, Pounds : 213 lb Body Surface Area (BSA) : 2.06 m2 Body Mass Index : 34.5 kg/m2 (HI) [place] Body Weight : 59 kg Magnolia Lima [...] : Living will, Medical durable power of electronic bench technician (proxy) Copy Advance Directive Verified/on Chart : [...] #2 Relationship : na Primary Language : [place]ican Preferred Communication Mode : Verbal Communication Barrier [...] Level : 46 or > High Risk [place] Fall Interventions : Adequate lighting, Bed in low position, Call device within reach, Non-slip footwear, Reinforced to call for assistance before getting out of bed, Upper side-rails up Magnolai Lima RN - 01/30/2019 12:44 EDT Education [...] - 01/30/2019 12:44 EDT Electronically signed by [facility], [facility] Conversion Front End Loader Driver Cerner at 07/24/2022 3:53 PM CDT documented in this encounter Plan of Treatment Not on file documented as of this encounter Visit Diagnoses Not on filedocumented in this encounter Care Teams Traffic Assistant Relationship Specialty Start Date End Date Juan José Kendall MD [address] [place] [address] [place] [phone] PCP - General Family Medicine 12/25/22 Juan José Kendall MD [address] [facility] [address] [place] [phone] Referring Physician Family Medicine 12/25/22 documented as of this encounter
--- OUTSIDE RECORDS SUMMARY | 2025-02-22 10:14 | XMS_ITS | Encounter Summary ---
Author Organization [employer] ([place], [place], [place], [place], [place]) Address [address] [place] [address] Care Team Providers Care Identifier Horse Name Role Phone Juan José Kendall MD Primary Care Provider + [phone] Juan José Kendall MD Unavailable [phone] Encounter Details Date Type Department Care Team (Late st Contact Info) Description 09/15/2018 Transcribed Document [facility] [place] Family Medicine [address] [place] [address] ProviderLaurie MD [address] [place] [address] Social History Tobacco Use Types Packs/Day Years [...] on filedocumented in this encounter Care Teams Identifier Horse Relationship Specialty Start Date End Date Juan José Kendall MD [address] [facility] [address] [place] [address] PCP - General Family Medicine 12/25/22 Juan José Kendall MD [address] [place] [address] Referring Physician Family Medicine 12/25/22 documented as of this encounter
--- OUTSIDE RECORDS SUMMARY | 2025-02-22 10:14 | XMS_ITS | Encounter Summary ---
Author Organization [employer] ([place], [place], [place], [place], [place]) Address [address] [place] [address] Care Team Providers Care Dedicated Truck Driver Name Role Phone Juan José Kendall MD Primary Care Provider +- [phone] Juan José Kendall MD Unavailable [phone] Encounter Details Date Type Department Care Team (Late st Contact Info) Description 01/30/2019 Transcribed Document [facility] [place] [address] [place] [address] ProviderLaurie MD [address] [place] [address] Social History Tobacco Use Types Packs/Day Years [...] Garcia MD - 01/30/2019 7:01 PM CDT Evaluation, Physical Therapy Entered On: 01/31/2019 10:44 EDT Performed On: 01/31/2019 10:35 EDT by LINDA BEVERLY, PT General Information, PT Visit Type, PT [...] owns RW, WC, BSC and Tub bench, microcomputer technician and sock aide. Lives with spouse. LINDA [...] BEVERLY, PT - 01/31/2019 10:35 EDT [facility] Basic Mobility Turning Over in Bed : A little Sit Down On/Stand Up From Chair w/ Arms : A little Move Back Lying to Sitting Side of Bed : A little Moving To/From a Bed to Chair : A little Need to Walk in Hospital Room : A lot Climbing 3-5 Steps with a Railing : Total -[facility] Basic Mobility Raw Score : 15 -[facility] Basic Mobility Standardized Score : 39.45 [facility] Basic Mobility CMS 0-100% Score : 57.70 % LINDA BEVERLY, PT - 01/31/2019 10:35 EDT [...] LINDA BEVERLY, PT - 01/31/2019 10:35 EDT Exhauster Engineer Goals Other PT LTG Grid Goal #1 Goal #2 Other : Patient will complete bed to chair transfer with RW and CGA/min assist x 1 person. Patient will complete supine to sit with leg pipeline operator and CGA. Date to Meet : 02/03/2019 [...] : Progress per POC as tolerated. LINDA BEVERLY, PT - 01/31/2019 10:35 EDT Pain Assessment [...] None Anticipated D/C Provider Notified : Nursing SIRIA LINDA, PT - 01/31/2019 10:35 EDT [facility] PT Charges PT Ther Activities Ea 15 Min : 1 PT Eval Low Complexity : 1 JHONNY BEVERLYNIFER, PT - 01/31/2019 10:35 EDT Electronically signed by Aleks, [facility] Conversion Cost Analyst Cerner at 07/24/2022 3:55 PM CDT documented in this encounter Plan of Treatment Not on file documented as of this encounter Visit Diagnoses Not on filedocumented in this encounter Care Teams Dedicated Truck Driver Relationship Specialty Start Date End Date Juan José Kendall MD [address] [place] [facility] [address] [place] [address] PCP - General Family Medicine 12/25/22 Juan José Kendall MD [address] [place] [facility] [address] [place] [phone] Referring Physician Family Medicine 12/25/22 documented as of this encounter
--- OUTSIDE RECORDS SUMMARY | 2025-02-22 10:14 | XMS_ITS | Encounter Summary ---
Author Organization [employer] ([place], [place], [place], [place], [place]) Address [address] [place] [address] Care Team Providers Care Hotel Director Name Role Phone Juan José Kendall MD Primary Care Provider +- [phone] Juan José Kendall MD Unavailable [phone] Encounter Details Date Type Department Care Team (Late st Contact Info) Description 09/29/2018 Transcribed Document [facility] [place] [address] [place] [address] ProviderLaurie MD [address] [place] [address] Social History Tobacco Use Types Packs/Day Years Used Date Smoking Tobacco: Never Assessed Comments Unknown Sex and Gender Information Value Date Recorded Sex Assigned at Not on file Legal Sex Female 2:23 PM CDT Gender Identity Not on file Sexual Orientation Not on file documented as of this encounter Miscellaneous Notes * [employer]ner Conversion Note - Laurie ProviderMD - 09/29/2018 2:00 AM CDT Property Claims Manager Details Entered On: 09/29/2018 0:49 EDT Performed [...] FRANCISCO MOREJON RN - 09/29/2018 0:49 EDT Electronically signed by Aleks [facility] Conversion Farm Management Professor Cerner at 07/24/2022 3:43 PM CDT documented in this encounter Plan of Treatment Not on file documented as of this encounter Visit Diagnoses Not on filedocumented in this encounter Care Teams Hotel Director Relationship Specialty Start Date End Date Juan José Kendall MD [address] [place] [facility] [address] [place] [address] PCP - General Family Medicine 12/25/22 Juan José Kendall MD [address] [facility] [address] [place] [phone] Referring Physician Family Medicine 12/25/22 documented as of this encounter
--- OUTSIDE RECORDS SUMMARY | 2025-02-22 10:14 | XMS_ITS | Encounter Summary ---
Author Organization [employer] ([place], [place], [place], [place], [place]) Address [address] [place] [address] Care Team Providers Care Kick Press Setter Name Role Phone Juan José Kendall MD Primary Care Provider +- [phone] Juan José Kendall MD Unavailable [phone] Encounter Details Date Type Department Care Team (Late st Contact Info) Description 09/29/2018 Transcribed Document [facility] [place] [address] [place] [address] ProviderLaurie MD [address] [place] [address] Social History Tobacco Use Types Packs/Day Years Used Date Smoking Tobacco: Never Assessed Comments Unknown Sex and Gender Information Value Date Recorded Sex Assigned at Not on file Legal Sex Female 2:23 PM CDT Gender Identity Not on file Sexual Orientation Not on file documented as of this encounter Miscellaneous Notes * Cerner Conversion Note - Laurie ProviderMD - 09/29/2018 3:00 PM CDT Pain Assessment Entered On: 09/29/2018 16:33 EDT Performed On: 09/29/2018 16:32 EDT by Nanda Don PSYCHOLOGICAL ASSISTANT-STUDENT NURSE Intervention Information: acetaminophen(Pending Validation) Performed by Nanda Don PSYCHOLOGICAL ASSISTANT-STUDENT NURSE on 09/29/2018 15:32:00 EDT acetaminophen,500mg Oral Pain Assessment Pain Assessment : Follow-up assessment Pain Scale Goal : 3 Nanda Don PSYCHOLOGICAL ASSISTANT-STUDENT NURSE - 09/29/2018 16:33 EDT documented in this encounter Plan of Treatment Not on file documented as of this encounter Visit Diagnoses Not on filedocumented in this encounter Care Teams Kick Press Setter Relationship Specialty Start Date End Date Juan José Kendall MD [address] [facility] [address] [place] [address] PCP - General Family Medicine 12/25/22 Juan José Kendall MD [address] [facility] [address] [place] [phone] Referring Physician Family Medicine 12/25/22 documented as of this encounter
--- OUTSIDE RECORDS SUMMARY | 2025-02-22 10:14 | XMS_ITS | Encounter Summary ---
Author Organization [employer] ([place], [place], [place], [place], [place]) Address [address] [place] [address] Care Team Providers Care Video Intern Name Role Phone Juan José Kendall MD Primary Care Provider + [phone] Juan José Kendall MD Unavailable [phone] Encounter Details Date Type Department Care Team (Late st Contact Info) Description 09/29/2018 Transcribed Document [facility] [place] [address] [place] [address] ProviderLaurie MD [address] [place] [address] Social History Tobacco Use Types Packs/Day Years [...] on filedocumented in this encounter Care Teams Video Intern Relationship Specialty Start Date End Date Juan José Kendall MD [address] [place] [address] [place] [address] PCP - General Family Medicine 12/25/22 Juan José Kendall MD [address] [place] [address] [place] [phone] Referring Physician Family Medicine 12/25/22 documented as of this encounter
--- OUTSIDE RECORDS SUMMARY | 2025-02-22 10:14 | XMS_ITS | Encounter Summary ---
Author Organization [employer] ([place], [place], [place], [place], [place]) Address [address] [place] [address] Care Team Providers Care Lamp Replacer Name Role Phone Juan José Kendall MD Primary Care Provider + [phone] Juan José Kendall MD Unavailable [phone] Encounter Details Date Type Department Care Team (Late st Contact Info) Description 09/15/2018 Transcribed Document [facility] [place] [address] [place] [address] ProviderLaurie MD [address] [place] [address] Social History Tobacco Use Types Packs/Day Years [...] Performed On: 09/15/2018 5:00 EDT by Angy Esqueda, Rn Chart Check Powerplans Initiated/Discontinued as Appropriate : Yes All Active Orders Reviewed : Yes Angy Esqueda, Emeli - 09/15/2018 3:17 EDT documented in this encounter Plan of Treatment Not on file documented as of this encounter Visit Diagnoses Not on filedocumented in this encounter Care Teams Lamp Replacer Relationship Specialty Start Date End Date Juan José Kendall MD [address] [place] [address] [place] [address] PCP - General Family Medicine 12/25/22 Juan José Kendall MD [address] [place] [address] [place] [phone] Referring Physician Family Medicine 12/25/22 documented as of this encounter
--- OUTSIDE RECORDS SUMMARY | 2025-02-22 10:14 | XMS_ITS | Encounter Summary ---
Author Organization [employer] ([place], [place], [place], [place], [place]) Address [address] [place] [address] Care Team Providers Care Enterprise Application Analyst Name Role Phone Juan José Kendall MD Primary Care Provider + [phone] Juan José Kendall MD Unavailable [phone] Encounter Details Date Type Department Care Team (Late st Contact Info) Description 09/15/2018 Transcribed Document [facility] [place] [address] [place] [address] ProviderLaurie MD [address] [place] [address] Social History Tobacco Use Types Packs/Day Years [...] 09/15/2018 18:55 EDT Electronically signed by Aleks [facility] Conversion Carpet Technician Cerner at 07/24/2022 3:49 PM CDT documented in this encounter Plan of Treatment Not on file documented as of this encounter Visit Diagnoses Not on filedocumented in this encounter Care Teams Enterprise Application Analyst Relationship Specialty Start Date End Date Juan José Kendall MD [address] [place] [address] [place] [address] PCP - General Family Medicine 12/25/22 Juan José Kendall MD [address] [place] [address] [place] [phone] Referring Physician Family Medicine 12/25/22 documented as of this encounter
--- OUTSIDE RECORDS SUMMARY | 2025-02-22 10:14 | XMS_ITS | Encounter Summary ---
Author Organization [employer] ([place], [place], [place], [place], [place]) Address [address] [place] [address] Care Team Providers Care Associate Curator Name Role Phone Juan José Kendall MD Primary Care Provider +- [phone] Juan José Kendall MD Unavailable [phone] Encounter Details Date Type Department Care Team (Late st Contact Info) Description 09/15/2018 Transcribed Document [facility] [place] [address] [place] [address] ProviderLaurie MD [address] [place] [address] Social History Tobacco Use Types Packs/Day Years [...] Management Note : 09/15/2018 Fax recieved from [facility] with approval for LTACH services 09/15-09/21/2018. Auth# [id number]. Fax next clinical review to [phone] on 09/21/2018. Care Management Note Report : PJ NELSON - 09/14/18 08:28:49 09/14/2018 Clinical review faxed to [facility] ([phone]) to request coverage for continued LTACH services. Approval pending. Auth# [id number]. Chuyita Briceno, Clinical Assessment Liaison - 09/09/18 [...] unit or SNF. She has previously used [facility] and prefers to use them again if needed. The patient owns a shower chair, BSC and w/c. The patient has never needed a dialysis clinic. The patient has not fallen in the past 3 months. PCP- Dr. Ranjeet [facility]- Orthopedic- Dr. Shay Guerrero [facility]- - [facility]- [facility] Natalia The patient does wish to [...] filedocumented in this encounter Care Teams Associate Curator Relationship Specialty Start Date End Date Juan José Kendall MD [address] [facility] [address] [place] [address] PCP - General Family Medicine 12/25/22 Juan José Kendall MD [address] [facility] [address] [place] [address] Referring Physician Family Medicine 12/25/22 documented as of this encounter
--- OUTSIDE RECORDS SUMMARY | 2025-02-22 10:14 | XMS_ITS | Encounter Summary ---
Author Organization [employer] ([place], [place], [place], [place], [place]) Address [address] [place] [address] Care Team Providers Care Pet Adoption Counselor Name Role Phone Juan José Kendall MD Primary Care Provider +- [phone] Juan José Kendall MD Unavailable [phone] Encounter Details Date Type Department Care Team (Late st Contact Info) Description 01/30/2019 Transcribed Document [facility] [place] Family Medicine [address] [place] [address] ProviderLaurie MD [address] [place] [address] Social History Tobacco Use Types Packs/Day Years [...] 01/30/2019 2:37 PM CDT [facility] Main OR PACU Summary Primary Physician: JONG SANTACRUZ MD-ORT Finalized Date/Time: 01/30/19 18:33:25 Pt. Name: TRUDI BLAIR /Sex: 1955 Female Med Rec #: [id number] Physician: JONG SANTACRUZ MD-ORT Financial #: [id number] Pt. Type: O Room/Bed: Admit/Disch: 01/30/19 11:31:00 - Institution: [facility] [place] PACU Case Times Entry 1 In PACU I 01/30/19 18:00:00 Ready for PACU 01/30/19 18:35:00 Discharge Discharge from PACU 01/30/19 18:35:00 I Last Modified By: Manju Gloria RN 01/30/19 18:33:18 Finalized By: Manju Gloria, RN Document Signatures Signed By: Manju Gloria RN 01/30/19 18:33 documented in this encounter Plan of Treatment Not on file documented as of this encounter Visit Diagnoses Not on filedocumented in this encounter Care Teams Pet Adoption Counselor Relationship Specialty Start Date End Date Juan José Kendall MD [address] [facility] [address] [place] [address] PCP - General Family Medicine 12/25/22 Juan José Kendall MD [address] [facility] [address] [place] [phone] Referring Physician Family Medicine 12/25/22 documented as of this encounter
--- OUTSIDE RECORDS SUMMARY | 2025-02-22 10:14 | XMS_ITS | Encounter Summary ---
Author Organization [employer] ([place], [place], [place], [place], [place]) Address [address] [place] [address] Care Team Providers Care Firer Bisque Kiln Name Role Phone Juan José Kendall MD Primary Care Provider + [phone] Juan José Kendall MD Unavailable [phone] Encounter Details Date Type Department Care Team (Late st Contact Info) Description 09/28/2018 Transcribed Document [facility] [place] [address] [place] [address] ProviderLaurie MD [address] [place] [address] Social History Tobacco Use Types Packs/Day Years [...] FRANCISCO MOREJON RN - 09/28/2018 22:40 EDT documented in this encounter Plan of Treatment Not on file documented as of this encounter Visit Diagnoses Not on filedocumented in this encounter Care Teams Firer Bisque Kiln Relationship Specialty Start Date End Date Juan José Kendall MD [address] [place] [facility] [address] [place] [address] PCP - General Family Medicine 12/25/22 Juan José Kendall MD [address] [facility] [address] [place] [address] Referring Physician Family Medicine 12/25/22 documented as of this encounter
[2025-02-22 10:21] LABS: Thyroid Stimulating Hormone 6.14 uIU/mL (0.465-4.68)
== END 2025-02-22 23:59 | disposition home or self-care (01) ==
PROVIDERS: PCP Family Medicine; Visit Provider Family Medicine
DX: M89.8X5 Other specified disorders of bone, thigh (principal); D64.9 Anemia, unspecified; I10 Essential (primary) hypertension; E78.5 Hyperlipidemia, unspecified; E03.9 Hypothyroidism, unspecified
CPT/HCPCS: 36415; 73552; 80053; 80061; 84443; 85025